=== PATIENT | male | born 1965 | race Hispanic/Latino ===

== ENCOUNTER 2018-01-25 10:48 | Emergency (ER) | payer SELFPAY ==
--- OUTSIDE RECORDS SUMMARY | 2018-01-25 10:50 | XMS REPORT | Clinical Summary ---
:1965 Author Organization [facility] Address [address] [place] [address] Care Team Providers Name Role Phone Asked, No Pcp Primary Care Provider Unavailable Allergies Active Allergy Reactions Severity Noted Date Comments Codeine Hives High 12/01/2016 Morphine Hives High 07/11/2017 Current Medications Prescription Sig. Disp. Refills Start Date End Date Status gabapentin Take 600 mg by Active (NEURONTIN) 600 mg mouth 2 (two) tablet times a day. metFORMIN Take 500 mg by Active (GLUCOPHAGE) 500 mg mouth 2 (two) tablet times a day with meals. atenolol (TENORMIN) Take 50 mg by Active 50 MG tablet mouth daily. citalopram (CeleXA) Take 20 mg by Active 20 MG tablet mouth daily. lisinopril Take 20 mg by Active (PRINIVIL,ZESTRIL) mouth daily. 20 mg tablet clopidogrel (PLAVIX) Take 75 mg by Active 75 mg tablet mouth daily. simvastatin (ZOCOR) Take 80 mg by Active 80 MG tablet mouth nightly. glyBURIDE (DIABETA) Take 1 tablet (5 30 tablet 0 07/13/2017 08/12/2017 5 MG tablet mg total) by mouth daily with breakfast for 30 days. Active Problems Problem Noted Date Chest pain 12/01/2016 Essential hypertension 12/01/2016 Type 2 diabetes mellitus 12/01/2016 Coronary artery disease involving [place] coronary artery 12/01/2016 Cirrhosis (HCC) 12/01/2016 Hypertriglyceridemia 12/01/2016 Depression 12/01/2016 Encounters Date Type Specialty Care Team Description 07/11/2017 - Hospital Encounter Cardiology Tomi, Stable angina pectoris (Primary Dx); 07/12/2017 Milton O. Sr., Mixed hyperlipidemia; Essential hypertension; Type 2 diabetes mellitus with hyperosmolarity without coma, without long-term current use of insulin; Alcoholic cirrhosis of liver without ascites; Mild single current episode of major depressive disorder; Hypertriglyceridemia after 01/24/2017 Family History Medical History Relation Name Comments Diabetes Father Diabetes Mother Hypertension Mother Relation Name Status Comments Father Mother Social History Tobacco Use Types Packs/Day Years Used Date Current Every Day Smoker Cigarettes Alcohol Use Drinks/Week oz/Week Comments No Sex Assigned at Date Recorded Not on file Last Filed Vital Signs Vital Sign Reading Time Taken Blood Pressure 134/75 07/12/2017 11:21 AM CDT Pulse 68 07/12/2017 11:21 AM CDT Temperature 36.3 C (97.4 F) 07/12/2017 11:21 AM CDT Respiratory Rate 16 07/12/2017 11:21 AM CDT Oxygen Saturation 94% 07/12/2017 11:21 AM CDT Inhaled Oxygen Concentration - - Weight 85.3 kg (188 lb 1.6 oz) 07/12/2017 6:43 AM CDT Height 170.2 cm (5' 7") 07/11/2017 12:36 PM CDT Body Mass Index 29.46 07/12/2017 6:43 AM CDT Plan of Treatment Health Maintenance Due Date Last Done Comments DIABETIC FOOT EXAM 07/30/1977 DIABETIC RETINAL EYE EXAM 07/30/1977 URINE MICROALBUMIN 07/30/1977 COLON CANCER SCREENING 07/30/2017 SHINGRIX VACCINE (#1) 07/30/2017 INFLUENZA VACCINE 11/26/2017 Implants Implanted Type Area Special Services Director Device Expiration Model / Identifier Date Serial / Lot Orthopedic Orthopedic Surgical Surgical Implants Implants Procedures Procedure Name Priority Date/Time Associated Comments Diagnosis POC GLUCOSE Routine 07/12/2017 12:05 Results for this PM CDT procedure are in the results section. ECHOCARDIOGRAM 2D Routine 07/12/2017 9:04 Results for this COMPLETE W MMODE AM CDT procedure are in SPECTRAL COLOR DOPPLER the results (54985) section. POC GLUCOSE Routine 07/12/2017 7:31 Results for this AM CDT procedure are in the results section. HC COMPLETE BLD COUNT Routine 07/12/2017 5:40 Results for this W/AUTO DIFF AM CDT procedure are in the results section. ZZESTIMATED GFR Routine 07/12/2017 4:00 Results for this AM CDT procedure are in the results section. T4, FREE Routine 07/12/2017 4:00 Results for this AM CDT procedure are in the results section. THYROID STIMULATING Routine 07/12/2017 4:00 Results for this HORMONE AM CDT procedure are in the results section. LIPID PANEL Routine 07/12/2017 4:00 Results for this AM CDT procedure are in the results section. BASIC METABOLIC PANEL Routine 07/12/2017 4:00 Results for this AM CDT procedure are in the results section. POC GLUCOSE Routine 07/11/2017 8:55 Results for this PM CDT procedure are in the results section. TROPONIN Routine 07/11/2017 5:54 Results for this PM CDT procedure are in the results section. HEMOGLOBIN A1C Routine 07/11/2017 5:54 Results for this PM CDT procedure are in the results section. POC GLUCOSE Routine 07/11/2017 5:23 Results for this PM CDT procedure are in the results section. NM MYOCARDIAL PERFUSION Routine 07/11/2017 2:44 Results for this STRESS ONLY PM CDT procedure are in the results section. CV STRESS TEST NUCLEAR Routine 07/11/2017 2:44 Results for this CARDIO PM CDT procedure are in the results section. POC GLUCOSE Routine 07/11/2017 10:45 Results for this AM CDT procedure are in the results section. TROPONIN Routine 07/11/2017 10:26 Results for this AM CDT procedure are in the results section. ECG 12-LEAD STAT 07/11/2017 4:14 Results for this AM CDT procedure are in the results section. B NATRIURETIC PEPTIDE Routine 07/11/2017 3:45 Results for this AM CDT procedure are in the results section. HC COMPLETE BLD COUNT Routine 07/11/2017 3:45 Results for this W/AUTO DIFF AM CDT procedure are in the results section. COMPREHENSIVE METABOLIC Routine 07/11/2017 2:43 Results for this PANEL AM CDT procedure are in the results section. ZZESTIMATED GFR Routine 07/11/2017 2:43 Results for this AM CDT procedure are in the results section. TROPONIN Routine 07/11/2017 2:43 Results for this AM CDT procedure are in the results section. LIPID PANEL Routine 07/11/2017 2:43 Results for this AM CDT procedure are in the results section. THYROID STIMULATING Routine 07/11/2017 2:43 Results for this HORMONE AM CDT procedure are in the results section. T4, FREE Routine 07/11/2017 2:43 Results for this AM CDT procedure are in the results section. T3 Routine 07/11/2017 2:43 Results for this AM CDT procedure are in the results section. after 01/24/2017 Results POC glucose (07/12/2017 12:05 PM)Only the most recent of5 resultswithin the time period is included. POC glucose 341 (H) 65 - 99 mg/dL [facility] DEPARTMENT OF PATHOLOGY AND Comment: GENOMIC MEDICINE [facility] Notified RN Meter ID: [id number] Internet Project Manager: Marco Harrison Performing Organization Address City/State/Zipcode Phone Number [facility] DEPARTMENT OF PATHOLOGY AND [address] [place] [address] Echocardiogram complete w contrast and 3D if needed (07/12/2017 9:04 AM) Narrative Performed At [facility] Echocardiography Report [address] [place] [address].Name:PAOLA KWONG Pat.ID:[id number] .Date: 07/12/2017 Refer.MD:MILTON ELLINGTON MD Exam Time: 7:25:00 AMStudy Type:Routine Echo Height:67inWeight: 188lb BSA: 1.97 m2 DOBAge:1965,51Y Sex: MALEBP:135/74 Sonogrphr: Suad Greco RDCS, RVT Pat. Stat.:Inpatient Room:[address] Study Status:Final Echo Event ID:[id number] Order ID:[id number] Reason for Study:Chest pain, SOB History / Clinical:Chest Pain, Diabetes, Hyperlipidemia, Hypertension, Cirrhosis, OR, Infectious Viral Hepatitis Procedures:2D Echo, Colorflow Doppler Race:C SUMMARY: LV size is normal. Concentric left ventricular remodeling. Estimated EF is 60-64%. RV systolic function is normal. Diastolic dysfunction Grade I (Mild): Impaired relaxation with normal LV filling pressures. FINDINGS: LV: LV size is normal. Concentric left ventricular remodeling. LVEF is normal. Estimated EF is 60-64%. Overall wall motionis normal. RV: RV size is normal. RV systolic function is normal. LA: LA volume is mildly enlarged. RA: RA size is normal. AO: Aortic root diameter is normal. MACHO: No pericardial effusion. AV: No structural AV abnormalities noted. MV: No structural MV abnormalities noted. Mild mitral regurgitation. PV: No structural PV abnormalities noted. TV: No structural TV abnormalities noted. Jose: Diastolic dysfunction Grade I (Mild): Impaired relaxation withnormal LV filling pressures. Other:Insufficient TR jet to estimate PA systolic pressure. MEASUREMENTS: 2D Parasternal [place] LVOT 2.1 cmLA Ds4.5 cm LVIDd4 cmIndex2 cm/m Ao An2 cm LVIDs2.3 cmAo Rtd 3.3 cm Index1.7 cm/m LV%fs 43.3 % LV Edkc803.1 g(122-174) IVSd 1.3 cmLVM Index 98.5 g/m2 LVPWd1.3 cmRWT0.7 LA Sng Plane LA Area 23.8 cm2(8.8-23.4) LA Vol77.6 ml Index39.4 ml/m LA LngAx 6 cm DOPPLER LVOT Stroke Vol LVOT 2.1 cmLVOT CO4.3 l/min LVOT TVI19.2 cmLVOT CI2.2 l/m/m2 LVOT Tm351 gkzpUU25 bpm LVOT SV 66.6 ml Signed 07/12/2017 02:24 PM Zain Carmona M.D. Procedure Note Interface, Radiology Results In - 07/12/2017 2:24 PM CDT Echocardiography Report [address] [address], [place] [address] [facility].Name: PAOLA KWONG Pat.ID: [id number] .Date: 07/12/2017 Refer.MD: MILTON ELLINGTON MD Exam Time: 7:25:00 AM Study Type:Routine Echo Height: 67in Weight: 188lb BSA: 1.97 m2 Age: 6 1965,51Y Sex: MALE BP: 135/74 Sonogrphr: Suad Greco, VON, RVT Pat. Stat.:Inpatient Room: [address] Study Status:Final Echo Event ID:[id number] Order ID: [id number] Reason for Study:Chest pain, SOB History / Clinical:Chest Pain, Diabetes, Hyperlipidemia, Hypertension, Cirrhosis, OR, Infectious Viral Hepatitis Procedures:2D Echo, Colorflow Doppler Race: C SUMMARY: LV size is normal. Concentric left ventricular remodeling. Estimated EF is 60-64%. RV systolic function is normal. Diastolic dysfunction Grade I (Mild): Impaired relaxation with normal LV filling pressures. FINDINGS: LV: LV size is normal. Concentric left ventricular remodeling. LV EF is normal. Estimated EF is 60-64%. Overall wall motion is normal. RV: RV size is normal. RV systolic function is normal. LA: LA volume is mildly enlarged. RA: RA size is normal. AO: Aortic root diameter is normal. MACHO: No pericardial effusion. AV: No structural AV abnormalities noted. MV: No structural MV abnormalities noted. Mild mitral regurgitation. PV: No structural PV abnormalities noted. TV: No structural TV abnormalities noted. Jose: Diastolic dysfunction Grade I (Mild): Impaired relaxation with normal LV filling pressures. Other: Insufficient TR jet to estimate PA systolic pressure. MEASUREMENTS: 2D Parasternal [place] LVOT 2.1 cm LA Ds 4.5 cm LVIDd 4 cm Index 2 cm/m Ao An 2 cm LVIDs 2.3 cm Ao Rtd 3.3 cm Index 1.7 cm/m LV%fs 43.3 % LV Mass 194.1 g (122-174) IVSd 1.3 cm LVM Index 98.5 g/m2 LVPWd 1.3 cm RWT 0.7 LA Sng Plane LA Area 23.8 cm2 (8.8-23.4) LA Vol 77.6 ml Index 39.4 ml/m LA LngAx 6 cm DOPPLER LVOT Stroke Vol LVOT 2.1 cm LVOT CO 4.3 l/min LVOT TVI 19.2 cm LVOT CI 2.2 l/m/m2 LVOT Tm 351 msec HR 65 bpm LVOT SV 66.6 ml Signed 07/12/2017 02:24 PM Zain Carmona M.D. Performing Organization Address [facility]/Zipcode Phone Number [facility] [address] [place] [address] CBC with platelet and differential (07/12/2017 5:40 AM)Only the most recent of2 resultswithin the time period is included. WBC 6.07 4.50 - 11.00 k/uL [facility] DEPARTMENT OF PATHOLOGY AND GENOMIC MEDICINE RBC 3.63 (L) 4.40 - 6.00 m/uL [facility] DEPARTMENT OF PATHOLOGY AND GENOMIC MEDICINE HGB 11.5 (L) 14.0 - 18.0 g/dL [facility] DEPARTMENT OF PATHOLOGY AND GENOMIC MEDICINE HCT 31.2 (L) 41.0 - 51.0 % [facility] DEPARTMENT OF PATHOLOGY AND GENOMIC MEDICINE MCV 86.0 82.0 - 100.0 fL [facility] DEPARTMENT OF PATHOLOGY AND GENOMIC MEDICINE MCH 31.7 27.0 - 34.0 pg [facility] DEPARTMENT OF PATHOLOGY AND GENOMIC MEDICINE MCHC 36.9 31.0 - 37.0 g/dL [facility] DEPARTMENT OF PATHOLOGY AND GENOMIC MEDICINE RDW - SD 40.9 37.0 - 55.0 fL [facility] DEPARTMENT OF PATHOLOGY AND GENOMIC MEDICINE MPV 11.3 8.8 - 13.2 fL [facility] DEPARTMENT OF PATHOLOGY AND GENOMIC MEDICINE Platelet count 145 (L) 150 - 400 k/uL [facility] DEPARTMENT OF PATHOLOGY AND GENOMIC MEDICINE Nucleated RBC 0.00 /100 WBC [facility] DEPARTMENT OF PATHOLOGY AND GENOMIC MEDICINE Neutrophils 47.3 39.0 - 69.0 % [facility] DEPARTMENT OF PATHOLOGY AND GENOMIC MEDICINE Lymphocytes 40.2 25.0 - 45.0 % [facility] DEPARTMENT OF PATHOLOGY AND GENOMIC MEDICINE Monocytes 5.9 0.0 - 10.0 % [facility] DEPARTMENT OF PATHOLOGY AND GENOMIC MEDICINE Eosinophils 5.8 (H) 0.0 - 5.0 % [facility] DEPARTMENT OF PATHOLOGY AND GENOMIC MEDICINE Basophils 0.5 0.0 - 1.0 % [facility] DEPARTMENT OF PATHOLOGY AND GENOMIC MEDICINE Immature granulocytes 0.3Comment: 0.0 - 1.0 % [facility] DEPARTMENT OF "Immature PATHOLOGY AND GENOMIC granulocytes" MEDICINE (promyelocytes, myelocytes, metamyelocytes) Specimen Blood Performing Organization Address City/[facility] Phone Number [facility] DEPARTMENT OF PATHOLOGY AND [address] [place] [address] [facility] Estimated GFR (07/12/2017 4:00 AM)Only the most recent of2 resultswithin the time period is included. GFR Non Af Amer 54 (A) mL/min/1.73 m2 [facility] DEPARTMENT OF PATHOLOGY AND GENOMIC MEDICINE GFR Af Amer 65 mL/min/1.73 m2 [facility] DEPARTMENT OF Comment: PATHOLOGY AND GENOMIC Chronic kidney disease: <60 mL/min/1.73m2 MEDICINE Kidney failure: <15 mL/min/1.73m2 The estimated GFR is calculated from the IDMS-traceable Modification of Diet in Renal Disease Equation. The accuracy of the calculation is poor when the creatinine is normal. Calculated values >90 mL/min/1.73m2 are not reported. This equation has not been validated in children (<18 years), women, the elderly (>70 years), or ethnic groups other than Caucasians and Americans. Specimen Plasma specimen Performing Organization Address City/State/Zipcode Phone Number [facility] OF PATHOLOGY AND [address] [place] [address] [facility] Thyroid stimulating hormone (07/12/2017 4:00 AM)Only the most recent of2 resultswithin the time period is included. TSH 1.27 0.27 - 4.20 uIU/mL [facility] DEPARTMENT OF PATHOLOGY AND GENOMIC MEDICINE Specimen Plasma specimen Performing Organization Address City/[facility] Phone Number [facility] DEPARTMENT OF PATHOLOGY AND [address] [place] [phone] [place] [address] T4, free (07/12/2017 4:00 AM)Only the most recent of2 resultswithin the time period is included. T4, free 1.0 0.9 - 1.7 ng/dL [facility] DEPARTMENT OF PATHOLOGY AND GENOMIC MEDICINE Specimen Plasma specimen Performing Organization Address City/[facility] Phone Number [facility] DEPARTMENT OF PATHOLOGY AND [address] [place] [id number] [facility] MEDICINE Lipid panel (07/12/2017 4:00 AM)Only the most recent of2 resultswithin the time period is included. Cholesterol 220 (H) <200 mg/dL [facility] DEPARTMENT OF PATHOLOGY AND GENOMIC MEDICINE Triglycerides 278 (H) <150 mg/dL [facility] DEPARTMENT OF PATHOLOGY AND GENOMIC MEDICINE HDL cholesterol 31 (L) >40 mg/dL [facility] DEPARTMENT OF PATHOLOGY AND GENOMIC MEDICINE LDL cholesterol 160 (H)Comment: Result <100 mg/dL [facility] DEPARTMENT OF obtained by direct LDL PATHOLOGY AND GENOMIC measurement MEDICINE Lipid panel [facility] OF Comment: PATHOLOGY AND GENOMIC Total Cholesterol (mg/dL) MEDICINE <200 Desirable 787-314Zswindzuho-tkbq >=240High Triglycerides (mg/dL) <150 Normal 401-277Vqzdweaegz-rduv 200-499High >=500Very high HDL Cholesterol (mg/dL) <40Low (male) <40Low (female) LDL Cholesterol (mg/dL) <100 Optimal 100-129Near or above optimal 326-372Pagddftshm-qtsv 160-189High >=190Very high Risk Catergories that modify LDL goals. Risk CatergoriesLDL goal (mg/dL) CHD and CHD risk equivalent<100 (10-year risk >20%) Multiple (2+) risk factors <130 (10-year risk=<20%) 0-1 risk factors <160 (<10-year risk) Defining levels of lipids in metabolic syndrome Triglycerides>=150 mg/dL HDL Cholesterol Men<40 mg/dL Women<40 mg/dL Non-HDL cholesterol is a second target for therapy in persons with high triglycerides (>=200 mg/dL) Specimen Plasma specimen Performing Organization Address City/[facility] Phone Number [facility] DEPARTMENT OF PATHOLOGY AND [address] [place] [address] Basic metabolic panel (07/12/2017 4:00 AM) Sodium 141 135 - 148 mEq/L [facility] DEPARTMENT OF PATHOLOGY AND GENOMIC MEDICINE Potassium 4.1 3.5 - 5.0 mEq/L [facility] DEPARTMENT OF PATHOLOGY AND GENOMIC MEDICINE Chloride 106 98 - 112 mEq/L [facility] DEPARTMENT OF PATHOLOGY AND GENOMIC MEDICINE CO2 24 24 - 31 mEq/L [facility] DEPARTMENT OF PATHOLOGY AND GENOMIC MEDICINE Anion gap 11 7 - 15 mEq/L [facility] DEPARTMENT OF PATHOLOGY Comment: [facility] [employer] [facility] Starting from July , anion gap calculation no longer incorporates potassium. Please note the change. BUN 25 (H) 6 - 20 mg/dL [facility] DEPARTMENT OF PATHOLOGY AND GENOMIC MEDICINE Creatinine 1.4 (H) 0.7 - 1.2 mg/dL [facility] DEPARTMENT OF PATHOLOGY AND GENOMIC MEDICINE Glucose 206 (H) 65 - 99 mg/dL [facility] DEPARTMENT OF PATHOLOGY AND GENOMIC MEDICINE Calcium 8.9 8.3 - 10.2 mg/dL [facility] DEPARTMENT OF PATHOLOGY AND [employer] MEDICINE Specimen Plasma specimen Performing Organization Address [facility] Hospital[facility]y Phone Number [facility] DEPARTMENT OF PATHOLOGY AND [address] [place], [place] [phone] [facility] Troponin (07/11/2017 5:54 PM)Only the most recent of3 resultswithin the time period is included. Troponin <0.30 0.00 - 0.30 ng/mL [facility] DEPARTMENT OF PATHOLOGY Comment: AND [employer] [facility] 0.30 - 1.49 ng/mlMay indicate increased risk of acute coronary syndrome. >=1.5 ng/mlConsistent with acute myocardial infarction. The diagnostic value of a single normal or non-diagnostic result is questionable.Serial samples at 2-6 hour intervals are required to rule out acute myocardial injury. Specimen Plasma specimen Performing Organization Address City/[facility] Phone Number [facility] DEPARTMENT OF PATHOLOGY AND [address] [place], [place] [phone] [facility] Hemoglobin A1c (07/11/2017 5:54 PM) Hemoglobin A1C 7.4 (H) 4.0 - 5.6 % [facility] DEPARTMENT OF PATHOLOGY Comment: AND GENOMIC MEDICINE HbA1c cutoffs for diagnosing diabetes: 4.0% - 5.6%=normal 5.7% - 6.4%=increased risk for diabetes (prediabetes) >=6.5%=diabetes Goals for glycemic control (ADA 2016) < 7.0%Target for non adults with diabetes. More or less stringent targets may be appropriate for individual patients. <7.5% Target for Children and adolescents with type 1 diabetes. Specimen Blood Performing Organization Address City/[facility] Phone Number [facility] DEPARTMENT OF PATHOLOGY AND [address] Cv ecg exercise stress (no imaging) (07/11/2017 2:44 PM) Resting HR 77 [facility] MUSE Resting BP 166 [facility] Peak MET Achieved 1.0 [facility] MUSE Protocol Name REGADENO [facility] Time in Exercise Phase 00:01:00 [facility] Max Systolic BP 178 [facility] Max Diastolic BP 95 [facility] Max Heart Rate 85 [facility] Max Predicted Heart Rate 171 [facility] Target HR Formula (220 - Age)*100% [facility] Test Indication chest pain [facility] Stress Test Impression Waveform interpreted in report [facility] MUSE associated with image study. No interpretation is provided as part of this Stress ECG report.-Electronically Signed By Isabelle BOSS, Sreedhar Brown ([id number]), rewrite editor Kailey Porras ([id number]) on 07/11/2017 2:32:43 PM Target HR 145.35 bpm [facility] MUSE Performing Organization Address [facility] Phone Number [facility]USE [address] [place] [address] Myocardial perfusion (07/11/2017 2:44 PM) Narrative Performed At [facility] Nuclear Cardiology and Cardiac CT [address] [place] [address] Myocardial Perfusion Imaging Report Stress ECG tracings are available in MUSE, [employer] and CV Web All ECG interpretations are included in this report Pat.Name:PAOLA KWONG Pat.ID:[id number] St.Date: 07/11/2017 Refer.MD:MILTON ELLINGTON MD Exam Time: 12:58:00 PM Study Type:Myocardial Perfusion Imaging Height:66inBSA: 1.95 m2 DOBAge:1965,51YSex: MALE BP:162/82HR: 77 bpm HCT: 29.3 % Nuclear Tech:ZENY SpencerMT/Leatha MOURAMT,[facility] Nuclear Event ID:[id number] Order ID:[id number] History / Clinical:Coronary artery disease, Diabetes, Hyperlipidemia, Hypertension, S/P PCI 07/2007, Liver cirrhosis/Hepatitis C Procedures:Stress only Race:C Risk Factors:Angina, Diabetes, Cardiovascular Disease, Hyperlipidemia, Hypertension Clinical Symptoms:Regadenoson Surgery: Serum K+ Date,3.7 on 07/11/16/, Troponin I Date,1)NEG on 07/11/17/ 2)/ 3)/, BUN/Creatinine Date,20/05.4 on 07/11/17/ Medications:VICKI/ARB, Atenolol, Beta ramy, Lipitor, Lisinopril, Metformin, Zocor SUMMARY: SCINTIGRAPHIC RESULTS Perfusion Defect Size (% LV) 0 % Total 0 % Ischemia 0 % Scar Left Ventricular Perfusion Results There is normal tracer distribution throughout the myocardium during stress. Gated SPECT Results The post-stress left ventricular ejection fraction is 63 % with normal regional wall motion and left ventricular thickening.Left ventricular end-diastolic volume is 150 ml; end-systolic volume is56 ml. The left ventricle is of normal size at stress.The right ventricle is of normal size with normal wall motion. Conclusion Normal regadenoson Tc-99m tetrofosmin myocardial perfusion study. The left ventricular ejection fraction is normal. Moderate RVH. Comments Patients with a normal stress myocardial perfusion study have a low (< 1%) annual risk of cardiac or nonfatal myocardial infarction. Study Quality/Artifacts The study quality is good. The mild reduction in apical-septal wall counts during stress is probably due to soft tissue attenuation artifact rather than coronary artery diseasewhich resolves with prone imaging. Comparison to Previous Study None available. STRESS: Baseline Vital Signs:Intervention: Regadenoson 0.4mg/5ml IV over 10 seconds followed by radiotracer injection and 5ml saline flush ECG: Normal Sinus Rhythm, Right bundle branch block HR:77 BP:166/82 Stress Test Results: Target HR: 145 Symptoms and Complications: Arrhythmias: None Terminated: As per Regadenoson protocol Symptoms:Headache, Shortness of breath Complications: None Conclusions: Normal heart rate response to pharmacological stress, Normal blood pressure response to pharmacological stress Stress ECG Interp: No ischemic ST segment change occurred with stress. Signed 07/11/2017 05:29 PM Sreedhar Walton MD Procedure Note Interface, Radiology Results In - 07/11/2017 5:29 PM CDT Nuclear Cardiology and Cardiac CT [address] [place] [address] Myocardial Perfusion Imaging Report Stress ECG tracings are available in [employer], [employer] and [employer] ([employer]) All ECG interpretations are included in this report Pat.Name: PAOLA KWONG Pat.ID: [id number] .Date: 07/11/2017 Refer.MD: MILTON ELLINGTON MD Exam Time: 12:58:00 PM Study Type:Myocardial Perfusion Imaging Height: 66in BSA: 1.95 m2 Age: 6 1965,51Y Sex: MALE BP: 162/82 HR: 77 bpm HCT: 29.3 % Nuclear Tech:NIDHI Spencer/Leatha MOURAMT,[facility] Event ID:[id number] Order ID: [id number] History / Clinical:Coronary artery disease, Diabetes, Hyperlipidemia, Hypertension, S/P PCI 07/2007, Liver cirrhosis/Hepatitis C Procedures:Stress only Race: C Risk Factors:Angina, Diabetes, Cardiovascular Disease, Hyperlipidemia, Hypertension Clinical Symptoms:Regadenoson Surgery: Serum K+ Date, 3.7 on 07/11/16/, Troponin I Date, 1)NEG on 07/11/17/ 2)/ 3)/, BUN/Creatinine Date, 23/1.4 on 07/11/17/ Medications:VICKI/ARB, Atenolol, Beta ramy, Lipitor, Lisinopril, Metformin, Zocor SUMMARY: SCINTIGRAPHIC RESULTS Perfusion Defect Size (% LV) 0 % Total 0 % Ischemia 0 % Scar Left Ventricular Perfusion Results There is normal tracer distribution throughout the myocardium during stress. Gated SPECT Results The post-stress left ventricular ejection fraction is 63 % with normal regional wall motion and left ventricular thickening. Left ventricular end-diastolic volume is 150 ml; end-systolic volume is 56 ml. The left ventricle is of normal size at stress. The right ventricle is of normal size with normal wall motion. Conclusion Normal regadenoson Tc-99m tetrofosmin myocardial perfusion study. The left ventricular ejection fraction is normal. Moderate RVH. Comments Patients with a normal stress myocardial perfusion study have a low (< 1%) annual risk of cardiac or nonfatal myocardial infarction. Study Quality/Artifacts The study quality is good. The mild reduction in apical-septal wall counts during stress is probably due to soft tissue attenuation artifact rather than coronary artery disease which resolves with prone imaging. Comparison to Previous Study None available. STRESS: Baseline Vital Signs: Intervention: Regadenoson 0.4mg/5ml IV over 10 seconds followed by radiotracer injection and 5ml saline flush ECG: Normal Sinus Rhythm, Right bundle branch block HR: 77 BP: 166/82 Stress Test Results: Target HR: 145 Symptoms and Complications: Arrhythmias: None Terminated: As per Regadenoson protocol Symptoms: Headache, Shortness of breath Complications: None Conclusions: Normal heart rate response to pharmacological stress, Normal blood pressure response to pharmacological stress Stress ECG Interp: No ischemic ST segment change occurred with stress. Signed 07/11/2017 05:29 PM Sreedhar Walton MD Performing Organization Address City/State/Zipcode Phone Number [facility] [address] [place] [address] ECG 12 lead (07/11/2017 4:14 AM) Ventricular rate 83 [facility] MUSE Atrial rate 83 [facility] MUSE [place] interval 138 [facility] MUSE QRSD interval 152 HM MUSE QT interval 420 HM MUSE QTC interval 493 [facility] MUSE P axis 1 34 HM MUSE QRS axis 1 78 [facility] MUSE T wave axis 9 [facility] MUSE EKG impression Normal sinus rhythm-Right bundle branch [facility] MUSE block-Abnormal ECG-In automated comparison with ECG of 01-DEC-2016 20:31,-No significant change was found- Performing Organization Address City/[facility] Phone Number [facility] MUSE [address] [place] [address] B natriuretic peptide (07/11/2017 3:45 AM) BNP 25 0 - 100 pg/mL [facility] DEPARTMENT OF PATHOLOGY AND GENOMIC MEDICINE Specimen Blood Performing Organization Address [facility] Phone Number [facility] DEPARTMENT OF PATHOLOGY AND [address] [place] [id number] [facility] MEDICINE T3 (07/11/2017 2:43 AM) T3 89 80 - 200 ng/dL [facility] DEPARTMENT OF PATHOLOGY AND GENOMIC MEDICINE Specimen Plasma specimen Performing Organization Address [facility] Phone Number [facility] DEPARTMENT OF PATHOLOGY AND [address] [place] [phone] [facility] Comprehensive metabolic panel (07/11/2017 2:43 AM) Sodium 141 135 - 148 mEq/L [facility] DEPARTMENT OF PATHOLOGY AND GENOMIC MEDICINE Potassium 3.7 3.5 - 5.0 mEq/L [facility] DEPARTMENT OF PATHOLOGY AND GENOMIC MEDICINE Chloride 103 98 - 112 mEq/L [facility] DEPARTMENT OF PATHOLOGY AND GENOMIC MEDICINE CO2 26 24 - 31 mEq/L [facility] DEPARTMENT OF PATHOLOGY AND GENOMIC MEDICINE Anion gap 12 7 - 15 mEq/L [facility] DEPARTMENT OF Comment: PATHOLOGY AND GENOMIC Starting from July , anion gap calculation MEDICINE no longer incorporates potassium. Please note the change. BUN 23 (H) 6 - 20 mg/dL [facility] DEPARTMENT OF PATHOLOGY AND GENOMIC MEDICINE Creatinine 1.4 (H) 0.7 - 1.2 mg/dL [facility] DEPARTMENT OF PATHOLOGY AND GENOMIC MEDICINE Glucose 248 (H) 65 - 99 mg/dL [facility] DEPARTMENT OF PATHOLOGY AND GENOMIC MEDICINE Calcium 9.0 8.3 - 10.2 mg/dL [facility] DEPARTMENT OF PATHOLOGY AND GENOMIC MEDICINE Protein 5.7 (L) 6.3 - 8.3 g/dL [facility] DEPARTMENT OF Comment: PATHOLOGY AND GENOMIC [place] 4.6-7.0 g/dL MEDICINE 1 week 4.4-7.6 g/dL 7 months-1year5.1-7.3 g/dL 1-2 years5.6-7.5 g/dL >3 years6.0-8.0 g/dL 18-150 6.3-8.3 g/dL Albumin 2.6 (L) 3.5 - 5.0 g/dL [facility] DEPARTMENT OF PATHOLOGY AND GENOMIC MEDICINE A/G ratio 0.8 0.7 - 3.8 [facility] DEPARTMENT OF PATHOLOGY AND GENOMIC MEDICINE Alkaline phosphatase 63 40 - 129 U/L [facility] DEPARTMENT OF PATHOLOGY AND GENOMIC MEDICINE AST 31 10 - 50 U/L [facility] DEPARTMENT OF PATHOLOGY AND GENOMIC MEDICINE ALT 26 5 - 50 U/L [facility] DEPARTMENT OF PATHOLOGY AND GENOMIC MEDICINE Total bilirubin 0.3 0.0 - 1.2 mg/dL [facility] DEPARTMENT OF PATHOLOGY AND GENOMIC MEDICINE Specimen Plasma specimen Narrative Performed At [facility] added per Eden Duran/HYALEE in A7 at [facility] DEPARTMENT OF PATHOLOGY AND GENOMIC 07/11/17 0715 by [facility]. MEDICINE Performing Organization Address City/State/Zipcode Phone Number [facility] DEPARTMENT OF PATHOLOGY AND [address] [place] [address] [employer] [facility] after 01/24/2017
--- NOTE | 2018-01-25 12:40 | RAD REPORT ---
EXAM DESCRIPTION: CT - Head Brain Wo Cont - 01/25/2018 12:25 pm CLINICAL HISTORY: NUMBNESS Headache COMPARISON: No comparisons TECHNIQUE: All CT scans are performed using dose optimization technique as appropriate and may inclu de automated exposure control or mA/KV adjustment according to patient size. FINDINGS: No intracranial hemorrhage, hydrocephalus or extra-axial fluid collection.No areas of brai n edema or evidence of midline shift. The paranasal sinuses and mastoids are clear. The calvarium is intact. IMPRESSION: No acute intracranial abnormality.
--- NOTE | 2018-01-25 12:47 | RAD REPORT ---
EXAM DESCRIPTION: RAD - Chest Single View - 01/25/2018 12:34 pm CLINICAL HISTORY: MALAISE Chest pain. COMPARISON: Chest Single View dated 12/01/2016 FINDINGS: Portable technique limits examination quality. The lungs are grossly clear. The heart is normal in size. No displaced fractures. IMPRESSION: No acute intrathoracic process suspected.
[2018-01-25 13:12] LABS: Absolute Lymphocytes (CBC) 1.6 K/uL (0.7-4.9); Absolute Monocytes 0.3 K/uL (0.1-1.3); Absolute Neutrophil 3.1 K/uL (1.8-8.0); Basophils % 0.9 % (0-1.3); Eosinophils % 4.6 % (0-4.4); Hematocrit 37.1 % (39.6-49.0); Lymphocytes % 30.3 % (15.3-44.8); MCH 32.9 pg (27.0-35.0); MCV 89.6 fL (80-100); Monocytes % 5.2 % (3.3-12.3); Protime INR 0.92; RBC Red Blood Cell Count 4.14 M/uL (4.33-5.43)
[2018-01-25 13:24] LABS: ALT/SGPT 27 U/L (12-78); AST/SGOT 13 U/L (15-37); Albumin 3.1 g/dL (3.4-5.0); BUN Blood Urea Nitrogen 34 mg/dL (7-18); Bicarbonate 29 mmol/L (21-32); Bilirubin Direct 0.1 mg/dL (0-0.2); Glucose Level 389 mg/dL (74-106); Magnesium 2.4 mg/dL (1.8-2.4); Potassium 4.5 mmol/L (3.5-5.1); Sodium Level 137 mmol/L (136-145)
[2018-01-25 13:29] LABS: Alkaline Phosphatase 94 U/L (45-117); Bilirubin Total 0.4 mg/dL (0.2-1.0); NT PRO-BNP 263 pg/mL (<125); Protein, Total 6.6 g/dL (6.4-8.2); Troponin (Emerg Dept Use Only) < 0.02 ng/mL (0.0-0.045)
--- NOTE | 2018-01-25 14:29 | EDPHYS ---
Physician Documentation [facility] Name: Wero Kwong Sr Age: 52 yrs Sex: Male : 1965 Arrival Date: 01/25/2018 Time: 10:51 Bed 17 Private MD: Guido Pettit S ED Physician Gregory Rivas HPI: 01/25 14:25 This 52 yrs old Male presents to ER via Ambulatory with complaints of Redness gs of Eye dizziness. 14:25 The patient presents with lightheadedness. Onset: The symptoms/episode began/occurred 2 gs week(s) ago. Modifying factors: the symptoms are aggravated by standing up. Associated signs and symptoms: Pertinent negatives: chest pain, combativeness. Severity of symptoms: At their worst the symptoms were moderate in the emergency department the symptoms are unchanged. The patient has experienced similar episodes in the past, a few times. eye red, also says his vision is blurry right eye has hx of retinal detachment right. Historical: - Allergies: 10:57 Codeine; sg - PMHx: 10:57 CAD; Diabetes - NIDDM; High Cholesterol; Hypertension; Myocardial infarction; sg neuropathy; - PSHx: 10:57 Heart stents; Knee surgery; Cholecystectomy; sg - Immunization history:: Adult Immunizations up to date. - Social history:: Smoking status: unknown. - Ebola Screening: : Patient negative for fever greater than or equal to 101.5 degrees Fahrenheit, and additional compatible Ebola Virus Disease symptoms Patient denies exposure to infectious person Patient denies travel to an Ebola-affected area in the 21 days before illness onset No symptoms or risks identified at this time. ROS: 14:25 Neuro: Positive for tingling, right forehead. gs 14:25 Endocrine: Positive for hyperglycemia. 14:25 All other systems are negative. Exam: 14:25 Head/Face: Normocephalic, atraumatic. ENT: Nares patent. No nasal discharge, no gs septal abnormalities noted. Tympanic membranes are normal and external auditory canals are clear. Oropharynx with no redness, swelling, or masses, exudates, or evidence of obstruction, uvula midline. Mucous membranes moist. Neck: Trachea midline, no thyromegaly or masses palpated, and no cervical lymphadenopathy. Supple, full range of motion without nuchal rigidity, or vertebral point tenderness. No Meningismus. Chest/axilla: Normal chest wall appearance and motion. Nontender with no deformity. No lesions are appreciated. Cardiovascular: Regular rate and rhythm with a normal S1 and S2. No gallops, murmurs, or rubs. Normal PMI, no JVD. No pulse deficits. Respiratory: Lungs have equal breath sounds bilaterally, clear to auscultation and percussion. No rales, rhonchi or wheezes noted. No increased work of breathing, no retractions or nasal flaring. Abdomen/GI: Soft, non-tender, with normal bowel sounds. No distension or tympany. No guarding or rebound. No evidence of tenderness throughout. Back: No spinal tenderness. No costovertebral tenderness. Full range of motion. Skin: Warm, dry with normal turgor. Normal color with no rashes, no lesions, and no evidence of cellulitis. MS/ Extremity: Pulses equal, no cyanosis. Neurovascular intact. Full, normal range of motion. Neuro: Awake and alert, GCS 15, oriented to person, place, time, and situation. Cranial nerves II-XII grossly intact. Motor strength 5/5 in all extremities. Sensory grossly intact. Cerebellar exam normal. Normal gait. 14:25 Constitutional: The patient appears alert, awake. 14:25 Eyes: Conjunctiva: subconjunctival hemorrhage(s), seen in the right eye, at 8 o'clock. 14:31 ECG was reviewed by the Attending Physician. Vital Signs: 10:57 BP 124 / 79; Pulse 52; Resp 16; Temp 98.1; Pulse Ox 98% ; Weight 79.38 kg (R); Height 5 sg ft. 6 in. (167.64 cm); Pain 8/10; 11:25 BP 135 / 76; Pulse 52; Resp 16; Pulse Ox 98% on R/A; Pain 8/10; em 12:30 BP 148 / 79; Pulse 52; Resp 18; Pulse Ox 99% on R/A; em 14:15 BP 152 / 79; Pulse 56; Resp 18; Pulse Ox 100% on R/A; mh5 10:57 Body Mass Index 28.25 (79.38 kg, 167.64 cm) MDM: 11:51 Patient medically screened. 14:25 Differential diagnosis: CVA, generalized weakness, idiopathic dizziness, TIA, vertigo, gs retinal detachment, complications of diabetes mellitus. Data reviewed: vital signs, nurses notes. Response to treatment: the patient's symptoms have mildly improved after treatment, and as a result, I will discharge patient. 01/25 11:54 Order name: Basic Metabolic Panel; Complete Time: 13:38 01/25 11:54 Order name: CBC with Diff; Complete Time: 13:38 01/25 11:54 Order name: LFT's; Complete Time: 13:38 01/25 11:54 Order name: Magnesium; Complete Time: 13:38 01/25 11:54 Order name: NT PRO-BNP; Complete Time: 13:38 01/25 11:54 Order name: PT-INR; Complete Time: 13:38 01/25 11:54 Order name: Troponin (emerg Dept Use Only); Complete Time: 13:38 01/25 11:54 Order name: XRAY Chest (1 view); Complete Time: 13:04 01/25 11:54 Order name: EKG; Complete Time: 11:55 01/25 11:54 Order name: Cardiac monitoring; Complete Time: 13:17 01/25 11:54 Order name: EKG - Nurse/Tech; Complete Time: 13:17 01/25 11:54 Order name: IV Saline Lock; Complete Time: 13:17 01/25 11:54 Order name: Labs collected and sent; Complete Time: 13:17 01/25 11:54 Order name: CT Head Brain wo Cont; Complete Time: 13:04 01/25 11:54 Order name: O2 Per Protocol; Complete Time: 13:17 01/25 11:54 Order name: O2 Sat Monitoring; Complete Time: 13:17 EC:31 Rate is 53 beats/min. Rhythm is regular. NV interval is normal. QRS interval is gs prolonged. T waves are Flattened. No ST changes noted. Clinical impression: NSR w/ Non-specific ST/T Changes. Interpreted by me. Administered Medications: No medications were administered Disposition: 01/25/18 14:29 Discharged to Home. Impression: Hyperglycemia, unspecified, Paresthesia of skin, Dizziness and giddiness, Conjunctival hemorrhage, right eye. - Condition is Stable. - Discharge Instructions: Dizziness, Hyperglycemia, Paresthesia, [id number]. - Medication Reconciliation Form, Thank You Letter, Antibiotic Education, Prescription Opioid Use form. - Follow up: Private Physician; When: 1 - 2 days; Reason: Re-evaluation by your physician. Signatures: Dispatcher [employer] Loki Long, RN RN sg Ronnie Wilhelm, COMB FIXER COMB FIXER Gregory Pollock MD MD gs Corrections: (The following items were deleted from the chart) 14:58 14:29 01/25/2018 14:29 Discharged to Home. Impression: Hyperglycemia, unspecified; em Paresthesia of skin; Dizziness and giddiness; Conjunctival hemorrhage, right eye. Condition is Stable. Forms are Medication Reconciliation Form, Thank You Letter, Antibiotic Education, Prescription Opioid Use. Follow up: Private Physician; When: 1 - 2 days; Reason: Re-evaluation by your physician. gs
--- NOTE | 2018-01-25 14:29 | ER ---
Nurse's Notes [facility] Name: Wero Kwong Sr Age: 52 yrs Sex: Male : 1965 Arrival Date: 01/25/2018 Time: 10:51 Bed 17 Private MD: Guido Pettit S Diagnosis: Hyperglycemia, unspecified;Paresthesia of skin;Dizziness and giddiness;Conjunctival hemorrhage, right eye Presentation: 01/25 10:55 Presenting complaint: Patient states: Right eye pain and redness that happened about sg 2-3 weeks ago. Pt states that he has had really high blood sugars recently, most recent being 485 this morning. Reports dizziness and pressure on the right side and having headache, pain and numbness and around my lips, this has been going on for several days. Transition of care: patient was not received from another setting of care. Onset of symptoms was January 25, 2018. Risk Assessment: Do you want to hurt yourself or someone else? Patient reports no desire to harm self or others. Initial Sepsis Screen: Does the patient meet any 2 criteria? No. Patient's initial sepsis screen is negative. Does the patient have a suspected source of infection? No. Patient's initial sepsis screen is negative. Care prior to arrival: None. 10:55 Method Of Arrival: Ambulatory sg 10:55 Acuity: MARIA [place] 3 sg Historical: - Allergies: 10:57 Codeine; sg - PMHx: 10:57 CAD; Diabetes - NIDDM; High Cholesterol; Hypertension; Myocardial infarction; sg neuropathy; - PSHx: 10:57 Heart stents; Knee surgery; Cholecystectomy; sg - Immunization history:: Adult Immunizations up to date. - Social history:: Smoking status: unknown. - Ebola Screening: : Patient negative for fever greater than or equal to 101.5 degrees Fahrenheit, and additional compatible Ebola Virus Disease symptoms Patient denies exposure to infectious person Patient denies travel to an Ebola-affected area in the 21 days before illness onset No symptoms or risks identified at this time. Screenin:57 Abuse screen: Denies threats or abuse. Nutritional screening: No deficits noted. em Tuberculosis screening: No symptoms or risk factors identified. Fall Risk None identified. Assessment: 11:26 General: Appears in no apparent distress. comfortable, Behavior is calm, cooperative. em Pain: Complains of pain in occipital area Pain currently is 8 out of 10 on a pain scale. Neuro: Level of Consciousness is awake, alert, obeys commands, Oriented to person, place, time, situation, Yield Clerk are equal bilaterally Moves all extremities. 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 Reports dizziness, headache numbness. Cardiovascular: Denies chest pain, vomiting, Capillary refill < 3 seconds Patient's skin is warm and dry. Respiratory: Airway is patent Respiratory effort is even, unlabored, Respiratory pattern is regular, symmetrical. GI: Patient currently denies nausea, vomiting. : No signs and/or symptoms were reported regarding the genitourinary system. EENT: No signs and/or symptoms were reported regarding the EENT system. Derm: Skin is jaundiced. Musculoskeletal: Range of motion: intact in all extremities. 11:35 Reassessment: Patient appears in no apparent distress at this time. I agree with above iw assessment by Ronnie Wilhelm LVN. 13:07 Reassessment: Patient appears in no apparent distress at this time. Patient and/or em family updated on plan of care and expected duration. Pain level reassessed. Patient is alert, oriented x 3, equal unlabored respirations, skin warm/dry/pink. 13:58 Reassessment: Patient appears in no apparent distress at this time. Patient and/or em family updated on plan of care and expected duration. Pain level reassessed. Patient is alert, oriented x 3, equal unlabored respirations, skin warm/dry/pink. Dr. Rivas at bedside. 14:41 Reassessment: Patient appears in no apparent distress at this time. Patient and/or em family updated on plan of care and expected duration. Pain level reassessed. Patient is alert, oriented x 3, equal unlabored respirations, skin warm/dry/pink. Vital Signs: 10:57 BP 124 / 79; Pulse 52; Resp 16; Temp 98.1; Pulse Ox 98% ; Weight 79.38 kg (R); Height 5 sg ft. 6 in. (167.64 cm); Pain 8/10; 11:25 BP 135 / 76; Pulse 52; Resp 16; Pulse Ox 98% on R/A; Pain 8/10; em 12:30 BP 148 / 79; Pulse 52; Resp 18; Pulse Ox 99% on R/A; em 14:15 BP 152 / 79; Pulse 56; Resp 18; Pulse Ox 100% on R/A; mh5 10:57 Body Mass Index 28.25 (79.38 kg, 167.64 cm) ED Course: 10:51 Patient arrived in ED. mr 10:52 Guido Pettit MD is Private Physician. mr 10:57 Triage completed. sg 10:57 Arm band placed on. 10:59 Ronnie Wilhelm LVN is Primary Nurse. em 11:41 Gregory Rivas MD is Attending Physician. gs 12:25 CT Head Brain wo Cont In Process Unspecified. EDMS 12:32 XRAY Chest (1 view) In Process Unspecified. EDMS 12:57 Patient has correct armband on for positive identification. Bed in low position. Call em light in reach. Adult w/ patient. 12:57 No provider procedures requiring assistance completed. Initial lab(s) drawn, by me, em sent to lab. EKG done, by ED staff, reviewed by Gregory Rivas MD. Inserted saline lock: 20 gauge in right antecubital area, using aseptic technique. Blood collected. 14:40 IV discontinued, intact, bleeding controlled, No redness/swelling at site. Pressure em dressing applied. Administered Medications: No medications were administered Outcome: 14:29 Discharge ordered by . 14:40 Discharged to home via wheelchair. em 14:40 Condition: good 14:40 Discharge instructions given to patient, family, Instructed on discharge instructions, follow up and referral plans. Demonstrated understanding of instructions, follow-up care. 14:58 Patient left the ED. em Signatures: Dispatcher [employer] EDMS Loki Miranda, RN Tiffany Sofia mr WilhelmRonnie LVN LVN em Agata Krishna, Mayela Washington RN [facility] Gregory Rivas MD MD
--- NOTE | 2018-01-26 06:47 | EKG ---
Test Date: 2018-01-25 Test Time: 12:39:04 Coconut Boiler: ELIZABETH MEASUREMENT RESULTS: Intervals: Rate: 53 CT: 148 QRSD: 146 QT: 480 QTc: 450 Buhl: P: 32 CT: 148 QRS: 67 T: 18 INTERPRETIVE STATEMENTS: Sinus bradycardia Right bundle branch block Abnormal ECG Compared to ECG 12/01/2016 14:55:01 Sinus rhythm no longer present Myocardial infarct finding no longer present Electronically Signed On 01-26-18 06:46:14 CDT by David Fabian
== END 2018-01-25 14:58 | disposition home or self-care (01) ==
LOC: ER 10:48
DX: E11.65 Type 2 diabetes mellitus with hyperglycemia (principal); H11.31 Conjunctival hemorrhage, right eye; R20.2 Paresthesia of skin; I10 Essential (primary) hypertension; Z88.5 Allergy status to narcotic agent; Z95.818 Presence of other cardiac implants and grafts
CPT/HCPCS: 36415; 70450; 71045; 80048; 80076; 83735; 83880; 84484; 85025; 85610; 93005; 99284

== ENCOUNTER 2018-03-12 13:16 | Observation (INO) | payer SELFPAY ==
--- OUTSIDE RECORDS SUMMARY | 2018-03-12 13:19 | XMS REPORT | Clinical Summary ---
:1965 Author Organization [facility] Address [address] [place] [address] Care Team Providers Name Role Phone Asked, No Pcp Primary Care Provider Unavailable Allergies Active Allergy Reactions Severity Noted Date Comments Codeine Hives High 12/01/2016 Hydrocodone-Acetaminophen Hives, Itching 06/25/2013 Morphine Hives High 07/11/2017 Medications Medication Sig Dispensed Refills Start Date End Date Status gabapentin Take 1,800 mg 0 Active (NEURONTIN) 300 mg by mouth every capsule morning. atenolol (TENORMIN) Take 50 mg by 0 Active 50 MG tablet mouth daily. citalopram (CeleXA) Take 20 mg by 0 Active 20 MG tablet mouth daily. lisinopril Take 20 mg by 0 Active (PRINIVIL,ZESTRIL) mouth daily. 20 mg tablet clopidogrel (PLAVIX) Take 75 mg by 0 Active 75 mg tablet mouth daily. gabapentin Take 1,200 mg 0 Active (NEURONTIN) 300 mg by mouth every capsule evening. ibuprofen Take 400 mg by 0 Active (ADVIL,MOTRIN) 200 mouth every 6 MG tablet (six) hours as needed for mild pain. atorvastatin Take 1 tablet 30 tablet 2 02/13/2018 Active (LIPITOR) 80 MG (80 mg total) 8 tablet by mouth nightly for 30 days. aspirin 81 mg Chew 1 tablet 100 tablet 3 02/14/2018 Active chewable tablet (81 mg total) 8 daily for 30 days. clopidogrel (PLAVIX) Take 1 tablet 30 tablet 6 02/14/2018 Active 75 mg tablet (75 mg total) 8 by mouth daily for 30 days. ergocalciferol Take 1 capsule 4 capsule 0 02/20/2018 Active (VITAMIN D2) 50,000 (50,000 Units 8 unit capsule total) by mouth once a week for 30 days. furosemide (LASIX) Take 1 tablet 60 tablet 1 02/16/2018 Active 40 mg tablet (40 mg total) 8 by mouth 2 (two) times a day for 30 days. insulin 70/30 NPH Inject 80 20 mL 2 02/16/2018 Active and regular human units twice a (NovoLIN 70/30 U-100 day with food Insulin) 100 unit/mL (70-30) injection insulin Inject twice a 100 each 2 02/16/2018 Active syringe-needle U-100 day (BD INSULIN SYRINGE ULTRA-FINE) 1 mL 31 gauge x 5/16 syringe metFORMIN Take 500 mg by 0 Discontinued (GLUCOPHAGE) 500 mg mouth 2 (two) 8 tablet times a day with meals. simvastatin (ZOCOR) Take 40 mg by 0 Discontinued 40 MG tablet mouth nightly. 8 glyBURIDE (DIABETA) Take 1 tablet 30 tablet 0 07/13/2017 5 MG tablet (5 mg total) 8 by mouth daily with breakfast for 30 days. glyburide-metformin Take 1 tablet 0 Discontinued (GLUCOVANCE) 5-500 by mouth 2 8 mg per tablet (two) times a day with meals. insulin lispro Inject 35 10 mL 12 02/13/2018 Discontinued (HumaLOG) 100 Units under 8 unit/mL injection the skin daily before dinner for 30 days. insulin lispro Inject 35 10 mL 12 02/14/2018 Discontinued (HumaLOG) 100 Units under 8 unit/mL injection the skin daily with breakfast for 30 days. insulin lispro Inject 35 10 mL 12 02/13/2018 Discontinued (HumaLOG) 100 Units under 8 unit/mL injection the skin daily before lunch for 30 days. insulin NPH Inject 50 10 mL 12 02/14/2018 Discontinued (HumuLIN-N) 100 Units under 8 unit/mL injection the skin daily for 30 days. insulin NPH Inject 55 10 mL 12 02/13/2018 Discontinued (HumuLIN-N) 100 Units under 8 unit/mL injection the skin nightly for 30 days. 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 Sr., Mixed hyperlipidemia; Essential hypertension; Type 2 diabetes mellitus with hyperosmolarity without coma, without long-term current use of insulin; Alcoholic cirrhosis of liver without ascites; Mild single current episode of major depressive disorder; Hypertriglyceridemia after 03/11/2017 Family History Medical History Relation Name Comments Diabetes Father Diabetes Mother Hypertension Mother Relation Name Status Comments Father Mother Social History Tobacco Use Types Packs/Day Years Used Date Current Every Day Smoker Cigarettes 3 Smokeless Tobacco: Never Used Alcohol Use Drinks/Week oz/Week Comments No Sex Assigned at Date Recorded Not on file Job Start Date Occupation Industry Not on file Not on file Not on file Travel History Travel Start Travel End No recent travel history available. Last Filed Vital Signs Vital Sign Reading Time Taken Blood Pressure 118/63 02/16/2018 12:12 PM CDT Pulse 61 02/16/2018 12:12 PM CDT Temperature 36.9 C (98.5 F) 02/16/2018 12:12 PM CDT Respiratory Rate 16 02/16/2018 12:12 PM CDT Oxygen Saturation 96% 02/16/2018 12:12 PM CDT Inhaled Oxygen Concentration - - Weight 85.3 kg (188 lb 1.6 oz) 07/12/2017 6:43 AM CDT Height 170.2 cm (5' 7") 02/07/2018 9:52 AM CDT Body Mass Index 29.46 07/12/2017 6:43 AM CDT Plan of Treatment Health Maintenance Due Date Last Done Comments DIABETIC RETINAL EYE EXAM 1965 MMR VACCINES (1 of 1 - Standard 07/30/1968 series) DIABETIC FOOT EXAM 07/30/1977 URINE MICROALBUMIN 07/30/1977 VARICELLA VACCINES (1 of 2 - 2-dose 07/30/1980 adolescent series) HEPATITIS B VACCINES (1 of 3 - Risk 07/30/1986 3-dose series) COLON CANCER SCREENING 07/30/2017 SHINGRIX VACCINE (1 of 2) 07/30/2017 INFLUENZA VACCINE 11/26/2017 IPV VACCINES Aged Out No longer eligible based on patient's age to complete this topic MENINGOCOCCAL VACCINE Aged Out No longer eligible based on patient's age to complete this topic 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 POC GLUCOSE Routine 02/16/2018 8:27 Results for this AM CDT procedure are in the results section. ESTIMATED GFR Routine 02/16/2018 4:00 Results for this AM CDT procedure are in the results section. BASIC METABOLIC PANEL Routine 02/16/2018 4:00 Results for this AM CDT procedure are in the results section. POC GLUCOSE Routine 02/15/2018 8:14 Results for this PM CDT procedure are in the results section. POC GLUCOSE Routine 02/15/2018 4:32 Results for this PM CDT procedure are in the results section. POC GLUCOSE Routine 02/15/2018 12:05 Results for this PM CDT procedure are in the results section. POC GLUCOSE Routine 02/15/2018 8:18 Results for this AM CDT procedure are in the results section. ESTIMATED GFR Routine 02/15/2018 4:00 Results for this AM CDT procedure are in the results section. BASIC METABOLIC PANEL Routine 02/15/2018 4:00 Results for this AM CDT procedure are in the results section. POC GLUCOSE Routine 02/14/2018 9:05 Results for this PM CDT procedure are in the results section. POC GLUCOSE Routine 02/14/2018 4:50 Results for this PM CDT procedure are in the results section. POC GLUCOSE Routine 02/14/2018 11:49 Results for this AM CDT procedure are in the results section. POC GLUCOSE Routine 02/14/2018 7:39 Results for this AM CDT procedure are in the results section. POC GLUCOSE Routine 02/14/2018 7:01 Results for this AM CDT procedure are in the results section. POC GLUCOSE Routine 02/13/2018 8:51 Results for this PM CDT procedure are in the results section. POC GLUCOSE Routine 02/13/2018 7:11 Results for this PM CDT procedure are in the results section. POC GLUCOSE Routine 02/13/2018 11:47 Results for this AM CDT procedure are in the results section. XR FOREARM 2 VW RIGHT Routine 02/13/2018 11:25 Results for this AM CDT procedure are in the results section. FL MODIFIED BARIUM Routine 02/13/2018 10:26 Results for this SWALLOW AM CDT procedure are in the results section. POC GLUCOSE Routine 02/13/2018 7:27 Results for this AM CDT procedure are in the results section. POC GLUCOSE Routine 02/13/2018 3:09 Results for this AM CDT procedure are in the results section. POC GLUCOSE Routine 02/12/2018 8:48 Results for this PM CDT procedure are in the results section. POC GLUCOSE Routine 02/12/2018 4:16 Results for this PM CDT procedure are in the results section. POC GLUCOSE Routine 02/12/2018 2:01 Results for this PM CDT procedure are in the results section. CARDIAC MRI STROKE EVAL Routine 02/12/2018 12:06 Results for this W CONTRAST PM CDT procedure are in the results section. POC GLUCOSE Routine 02/12/2018 8:10 Results for this AM CDT procedure are in the results section. POC GLUCOSE Routine 02/12/2018 6:27 Results for this AM CDT procedure are in the results section. POC GLUCOSE Routine 02/11/2018 9:16 Results for this PM CDT procedure are in the results section. CT SINUS WO CONTRAST Routine 02/11/2018 8:24 Results for this PM CDT procedure are in the results section. POC GLUCOSE Routine 02/11/2018 4:11 Results for this PM CDT procedure are in the results section. POC GLUCOSE Routine 02/11/2018 2:18 Results for this PM CDT procedure are in the results section. POC GLUCOSE Routine 02/11/2018 12:59 Results for this PM CDT procedure are in the results section. POC GLUCOSE Routine 02/11/2018 11:35 Results for this AM CDT procedure are in the results section. POC GLUCOSE Routine 02/11/2018 7:13 Results for this AM CDT procedure are in the results section. ESTIMATED GFR Routine 02/11/2018 4:30 Results for this AM CDT procedure are in the results section. VITAMIN D 25 HYDROXY Routine 02/11/2018 4:30 Results for this LEVEL AM CDT procedure are in the results section. AMYLASE LEVEL Routine 02/11/2018 4:30 Results for this AM CDT procedure are in the results section. LIPASE LEVEL Routine 02/11/2018 4:30 Results for this AM CDT procedure are in the results section. BASIC METABOLIC PANEL Routine 02/11/2018 4:30 Results for this AM CDT procedure are in the results section. HC COMPLETE BLD COUNT Routine 02/11/2018 4:30 Results for this W/AUTO DIFF AM CDT procedure are in the results section. POC GLUCOSE Routine 02/10/2018 8:46 Results for this PM CDT procedure are in the results section. POC GLUCOSE Routine 02/10/2018 4:21 Results for this PM CDT procedure are in the results section. POC GLUCOSE Routine 02/10/2018 12:27 Results for this PM CDT procedure are in the results section. MRI BRAIN WO CONTRAST STAT 02/10/2018 12:02 Results for this PM CDT procedure are in the results section. POC GLUCOSE Routine 02/10/2018 10:01 Results for this AM CDT procedure are in the results section. POC GLUCOSE Routine 02/10/2018 7:42 Results for this AM CDT procedure are in the results section. ESTIMATED GFR Routine 02/10/2018 3:24 Results for this AM CDT procedure are in the results section. BASIC METABOLIC PANEL Routine 02/10/2018 3:24 Results for this AM CDT procedure are in the results section. HC COMPLETE BLD COUNT Routine 02/10/2018 3:24 Results for this W/AUTO DIFF AM CDT procedure are in the results section. POC GLUCOSE Routine 02/09/2018 10:46 Results for this PM CDT procedure are in the results section. POC GLUCOSE Routine 02/09/2018 9:36 Results for this PM CDT procedure are in the results section. POC GLUCOSE Routine 02/09/2018 8:08 Results for this PM CDT procedure are in the results section. POC GLUCOSE Routine 02/09/2018 3:30 Results for this PM CDT procedure are in the results section. POC GLUCOSE Routine 02/09/2018 11:45 Results for this AM CDT procedure are in the results section. HEMOGLOBIN A1C Routine 02/09/2018 9:58 Results for this AM CDT procedure are in the results section. POC GLUCOSE Routine 02/09/2018 8:43 Results for this AM CDT procedure are in the results section. ECHOCARDIOGRAM 2D Routine 02/09/2018 8:20 Results for this COMPLETE W MMODE AM CDT procedure are in SPECTRAL COLOR DOPPLER the results (93700) section. ESTIMATED GFR Routine 02/09/2018 4:14 Results for this AM CDT procedure are in the results section. BASIC METABOLIC PANEL Routine 02/09/2018 4:14 Results for this AM CDT procedure are in the results section. HC COMPLETE BLD COUNT Routine 02/09/2018 4:14 Results for this W/AUTO DIFF AM CDT procedure are in the results section. POC GLUCOSE Routine 02/08/2018 11:41 Results for this PM CDT procedure are in the results section. GLUCOSE LEVEL STAT 02/08/2018 8:33 Results for this PM CDT procedure are in the results section. POC GLUCOSE Routine 02/08/2018 8:13 Results for this PM CDT procedure are in the results section. POC GLUCOSE Routine 02/08/2018 3:47 Results for this PM CDT procedure are in the results section. POTASSIUM LEVEL STAT 02/08/2018 3:27 Results for this PM CDT procedure are in the results section. MAGNESIUM LEVEL STAT 02/08/2018 3:27 Results for this PM CDT procedure are in the results section. T4, FREE Routine 02/08/2018 12:16 Results for this PM CDT procedure are in the results section. THYROID STIMULATING Routine 02/08/2018 12:16 Results for this HORMONE PM CDT procedure are in the results section. LIPID PANEL Routine 02/08/2018 12:16 Results for this PM CDT procedure are in the results section. POC GLUCOSE Routine 02/08/2018 11:14 Results for this AM CDT procedure are in the results section. MRI LUMBAR SPINE WO Routine 02/08/2018 9:03 Results for this CONTRAST AM CDT procedure are in the results section. MRI THORACIC SPINE WO Routine 02/08/2018 8:49 Results for this CONTRAST AM CDT procedure are in the results section. MRI CERVICAL SPINE WO Routine 02/08/2018 8:30 Results for this CONTRAST AM CDT procedure are in the results section. POC GLUCOSE Routine 02/08/2018 7:55 Results for this AM CDT procedure are in the results section. POC GLUCOSE Routine 02/08/2018 5:20 Results for this AM CDT procedure are in the results section. HEMOGLOBIN A1C Routine 02/08/2018 3:45 Results for this AM CDT procedure are in the results section. POC GLUCOSE Routine 02/08/2018 1:44 Results for this AM CDT procedure are in the results section. URINE DRUGS OF ABUSE STAT 02/08/2018 1:00 Results for this SCREEN AM CDT procedure are in the results section. SEDIMENTATION RATE STAT 02/08/2018 1:00 Results for this AM CDT procedure are in the results section. SYPHILIS TREPONEMAL IGG Routine 02/07/2018 9:55 Results for this PM CDT procedure are in the results section. HIV AG/AB COMBINATION Routine 02/07/2018 9:55 Results for this PM CDT procedure are in the results section. HOMOCYSTINE, PLASMA STAT 02/07/2018 9:54 Results for this PM CDT procedure are in the results section. LIPID PANEL STAT 02/07/2018 9:54 Results for this PM CDT procedure are in the results section. VITAMIN B12 LEVEL STAT 02/07/2018 9:54 Results for this PM CDT procedure are in the results section. THYROID STIMULATING STAT 02/07/2018 9:54 Results for this HORMONE PM CDT procedure are in the results section. RHEUMATOID FACTOR STAT 02/07/2018 9:54 Results for this PM CDT procedure are in the results section. T4, FREE STAT 02/07/2018 9:54 Results for this PM CDT procedure are in the results section. FOLATE LEVEL STAT 02/07/2018 9:54 Results for this PM CDT procedure are in the results section. C-REACTIVE PROTEIN STAT 02/07/2018 9:54 Results for this PM CDT procedure are in the results section. POC GLUCOSE Routine 02/07/2018 8:37 Results for this PM CDT procedure are in the results section. MRI FACE WO CONTRAST STAT 02/07/2018 7:19 Results for this PM CDT procedure are in the results section. MRA NECK WO CONTRAST STAT 02/07/2018 7:19 Results for this PM CDT procedure are in the results section. MRA HEAD WO CONTRAST STAT 02/07/2018 6:53 Results for this PM CDT procedure are in the results section. MRI BRAIN WO CONTRAST STAT 02/07/2018 6:48 Results for this PM CDT procedure are in the results section. CLOSTRIDIUM DIFFICILE Routine 02/07/2018 6:00 Results for this TOXIN PM CDT procedure are in the results section. CT ANGIOGRAM HEAD W WO STAT 02/07/2018 2:25 Results for this CONTRAST PM CDT procedure are in the results section. CT ANGIOGRAM NECK W WO STAT 02/07/2018 2:12 Results for this CONTRAST PM CDT procedure are in the results section. CT HEAD WO CONTRAST STAT 02/07/2018 2:11 Results for this PM CDT procedure are in the results section. TROPONIN Timed 02/07/2018 1:20 Results for this PM CDT procedure are in the results section. URINE CULTURE Routine 02/07/2018 11:31 Results for this AM CDT procedure are in the results section. URINALYSIS SCREEN AND Routine 02/07/2018 11:17 Results for this MICROSCOPY, WITH REFLEX AM CDT procedure are in TO CULTURE the results section. BLOOD CULTURE, AEROBIC & Routine 02/07/2018 11:15 Results for this ANAEROBIC AM CDT procedure are in the results section. ECG ED PRELIMINARY Routine 02/07/2018 10:49 Results for this INTERPRETATION AM CDT procedure are in the results section. ESTIMATED GFR STAT 02/07/2018 10:30 Results for this AM CDT procedure are in the results section. PARTIAL THROMBOPLASTIN STAT 02/07/2018 10:30 Results for this TIME (PTT) AM CDT procedure are in the results section. PROTHROMBIN TIME WITH STAT 02/07/2018 10:30 Results for this INR AM CDT procedure are in the results section. B NATRIURETIC PEPTIDE STAT 02/07/2018 10:30 Results for this AM CDT procedure are in the results section. TROPONIN STAT 02/07/2018 10:30 Results for this AM CDT procedure are in the results section. BETA HYDROXYBUTYRATE STAT 02/07/2018 10:30 Results for this AM CDT procedure are in the results section. COMPREHENSIVE METABOLIC STAT 02/07/2018 10:30 Results for this PANEL AM CDT procedure are in the results section. HC COMPLETE BLD COUNT STAT 02/07/2018 10:30 Results for this W/AUTO DIFF AM CDT procedure are in the results section. BLOOD CULTURE, AEROBIC & Routine 02/07/2018 10:30 Results for this ANAEROBIC AM CDT procedure are in the results section. ECG 12-LEAD STAT 02/07/2018 10:01 Results for this AM CDT procedure are in the results section. POC GLUCOSE Routine 07/12/2017 12:05 Results for this PM CDT procedure are in the results section. ECHOCARDIOGRAM 2D Routine 07/12/2017 9:04 Results for this COMPLETE W MMODE AM CDT procedure are in SPECTRAL COLOR DOPPLER the results (20140) section. POC GLUCOSE Routine 07/12/2017 7:31 Results [...] procedure are in the results section. after 03/11/2017 Results POC glucose (02/16/2018 12:00 PM CDT)Only the most recent of51 resultswithin the time period is included. POC glucose 115 (H) 65 - 99 mg/dL [facility] DEPARTMENT OF PATHOLOGY AND Comment: GENOMIC MEDICINE [facility] Notified RN Meter ID: [id number] Head Start Coordinator: Nomi Damon Performing Organization Address City/State/Zipcode Phone Number [facility] DEPARTMENT OF PATHOLOGY AND [address] [place] [phone] [employer] MEDICINE Estimated GFR (02/16/2018 4:00 AM CDT)Only the most recent of6 resultswithin the time period is included. Estimated GFR 49 (A) mL/min/1.73 m2 [facility] DEPARTMENT OF Comment: PATHOLOGY AND GENOMIC CatergoryUnitsInterpretation MEDICINE G1 >=90 Normal or high G2 60-89Mildly decreased G1g38-84Dofwee to moderately decreased [id number] to severely decreased G4 15-29Severely decreased G5 <15Kidney failure The eGFR was calculated using the Chronic Kidney Disease Epidemiology Collaboration (CKD-EPI) equation. Interpretation is based on recommendations of the National Kidney Foundation-Kidney Disease Outcomes Quality Initiative (NKF-KDOQI) published in 2014. Specimen Plasma specimen Performing Organization Address City/State/Zipcode Phone Number [facility] DEPARTMENT OF PATHOLOGY AND [address] [place] [address] GENOMIC MEDICINE Basic metabolic panel (02/16/2018 4:00 AM CDT)Only the most recent of6 resultswithin the time period is included. Sodium 141 135 - 148 mEq/L [facility] DEPARTMENT OF PATHOLOGY AND GENOMIC MEDICINE Potassium 5.0 3.5 - 5.0 mEq/L [facility] DEPARTMENT OF PATHOLOGY AND GENOMIC MEDICINE Chloride 107 98 - 112 mEq/L [facility] DEPARTMENT OF PATHOLOGY AND GENOMIC MEDICINE CO2 26 24 - 31 mEq/L [facility] DEPARTMENT OF PATHOLOGY AND GENOMIC MEDICINE Anion gap 8@ANIO 7 - 15 mEq/L [facility] DEPARTMENT OF PATHOLOGY AND GENOMIC MEDICINE BUN 44 (H) 6 - 20 mg/dL [facility] DEPARTMENT OF PATHOLOGY AND GENOMIC MEDICINE Creatinine 1.60 (H) 0.70 - 1.20 mg/dL [facility] DEPARTMENT OF PATHOLOGY AND GENOMIC MEDICINE Glucose 225 (H) 65 - 99 mg/dL [facility] DEPARTMENT OF PATHOLOGY AND GENOMIC MEDICINE Calcium 8.8 8.3 - 10.2 mg/dL [facility] DEPARTMENT OF PATHOLOGY AND GENOMIC MEDICINE Specimen Plasma specimen Performing Organization Address City/[facility]/Zipcode Phone Number [facility] DEPARTMENT OF PATHOLOGY AND [address] [place] [address] [facility] XR Forearm 2 Vw Right (02/13/2018 11:25 AM CDT) Narrative Performed At EXAMINATION:XR FOREARM 2 VW RIGHT [facility] CLINICAL HISTORY:right forearm pain COMPARISON:none. IMPRESSION: 1.No displaced fractures or dislocations. IV catheter noted along the volar aspect of the forearm. [facility]-[id number] Procedure Note Hm Interface, Radiology Results Incoming - 02/13/2018 11:44 AM CDT EXAMINATION: XR FOREARM 2 VW RIGHT CLINICAL HISTORY: right forearm pain COMPARISON: none. IMPRESSION: 1. No displaced fractures or dislocations. IV catheter noted along the volar aspect of the forearm. [facility]-[id number] Performing Organization Address City/State/Zipcode Phone Number [facility] [address] [place] [address] [place] Modified Barium Swallow (02/13/2018 10:26 AM CDT) Narrative Performed At EXAMINATION:[place] MODIFIED BARIUM SWALLOW [facility] CLINICAL HISTORY:Dysphagiaunexplained history of CVA COMPARISON:None. Fluoroscopy time: 0.6 minute, 282 images FINDINGS: The patient swallowed varying consistencies of barium under direct lateral fluoroscopic evaluation. The study was performed in conjunction with speech pathology. IMPRESSION: Deep penetration to the vocal cord level with straw and thin barium. Other consistencies did not demonstrate significant penetration or aspiration. Please refer to Speech Pathology report for further details. [facility]-[id number] Procedure Note Interface, Radiology Results Incoming - 02/13/2018 11:42 AM CDT EXAMINATION: [place] MODIFIED BARIUM SWALLOW CLINICAL HISTORY: Dysphagia unexplained history of CVA COMPARISON: None. Fluoroscopy time: 0.6 minute, 282 images FINDINGS: The patient swallowed varying consistencies of barium under direct lateral fluoroscopic evaluation. The study was performed in conjunction with speech pathology. IMPRESSION: Deep penetration to the vocal cord level with straw and thin barium. Other consistencies did not demonstrate significant penetration or aspiration. Please refer to Speech Pathology report for further details. [facility]-[id number] Performing Organization Address City/State/Zipcode Phone Number [facility] [address] [place] [address] Cardiac mri stroke eval w contrast (02/12/2018 12:06 PM CDT) Narrative Performed At [facility] CMR Report Name:PAOLA KWONG :1965 Scan Date: 2018-02-12 10:53:10 Electronically signed by Usha Ventura M.D. 15:08:38 VITALS HEIGHT/WEIGHT HEIGHT:68.00 in 172.72 cm WEIGHT:188.01 lbs 85.28 kgs BSA/BP BSA:1.99 m^2 SYSTOLIC BP:133 mmHg DIASTOLIC BP:76 mmHg HEART RATE/RHYTHM BASELINE HR:58 BPM HEART RHYTHM:Other sinus bradycardia FINAL IMPRESSION: Decreased imaging quality given poor breath holding. The study was not optimized for valvular assessment. The following observations can be made A. NO INTRACARDIAC MASSES OR THROMBI. NO EVIDENCE OF MYOCARDIAL INFARCTION OR SCARRING. B. NORMAL LEFT AND RIGHT VENTRICULAR FUNCTION. SUMMARY Hemodynamic valve assessment of the valve not done. LEFT VENTRICLE: Quantitative LVEF 63%. LV wall thickness is normal. LV cavity size is normal. LV systolic function is normal. There is no LV mass/thrombus. VIABILITY: No evidence of scar or infarct. Normal. RIGHT VENTRICLE: Quantitative RVEF 51%. RV wall thickness is normal. RV cavity size is upper limits of normal. RV systolic function is lower limits of normal. There is no RV mass/thrombus. LV/RV SEPTUM: The ventricular septum is intact. LA/RA SEPTUM: There is lipomatous hypertrophy of the interatrial septum. LEFT ATRIUM: LA cavity size is normal. There is no LA mass/thrombus. RIGHT ATRIUM: RA cavity size is normal. There is no RA mass/thrombus. PERICARDIUM: Pericardium is normal. There is a small pericardial effusion. PLEURAL EFFUSION: There is no pleural effusion. AORTIC VALVE: Aortic valve is trileaflet. MITRAL VALVE: Mitral valve leaflets are normal. There is no mitral stenosis. TRICUSPID VALVE: Tricuspid valve leaflets are normal. There is no tricuspid stenosis. PULMONIC VALVE: Pulmonic valve leaflets are normal. There is no pulmonic stenosis. AORTIC ROOT: The aortic root is normal. CHEST: Thoracic aorta is of normal caliber without an aneurysm or dissection. Dilated main pulmonary artery (axial diameter 3 cm). VENOUS: Normal pulmonary venous anatomy. OTHER FINDINGS: Right renal cyst. CORE EXAM MEASUREMENTS VOLUMETRIC ANALYSIS . . || | LV | Reference| RV | Reference| +------+-------+------+ +------+ + | EDV| ml|168 |(123-193) |211 |(117-209) | | ESV| ml| 63 |(30-74) |103 |(26-84) | | CO | L/min | 5.25 || 5.40 || | MASS | g |156 |(113-181) ||| | SV | ml|105 |(82-129)|108 |(76-139)| | EF | % | 63 |(58-76) | 51 |(53-79) | '------+-------+------+ +------+ ' CARDIAC OUTPUT HR:50 BPM LV DIMENSIONS WALL THICKNESS - ANTEROSEPTAL:1.0 cm WALL THICKNESS - INFEROLATERAL:1.1 cm LV OMER:5.4 cm LV ESD:3.4 cm LA DIMENSIONS (LV SYSTOLE) DIAMETER:4.3 cm AREA - 2 CHAMBER:20 cm^2 LENGTH - 2 CHAMBER:5.4 cm AREA - 4 CHAMBER:32 cm^2 LENGTH - 4 CHAMBER:6.3 cm VOLUME:101 ml AORTIC ROOT DIMENSIONS ANNULUS:2.8 cm SINUS OF VALSALVA:3.7 cm SINOTUBULAR JUNCTION:3.0 cm EXTRACELLULAR VOLUME MEASUREMENT HEMATOCRIT:30.8 % HEMATOCRIT DATE:2018-02-12 00:00:00 17 SEGMENT . . | Segments | Wall Motion| Hyperenhancement | Stress Perfusion | Interpretation | + + + + --+ + | Base Anterior| Normal/Hyper | None ||| | Base Anteroseptal| Normal/Hyper | None ||| | Base Inferoseptal| Normal/Hyper | None ||| | Base Inferior| Normal/Hyper | None ||| | Base Inferolateral | Normal/Hyper | None ||| | Base Anterolateral | Normal/Hyper | None ||| | Mid Anterior | Normal/Hyper | None ||| | Mid Anteroseptal | Normal/Hyper | None ||| | Mid Inferoseptal | Normal/Hyper | None ||| | Mid Inferior | Normal/Hyper | None ||| | Mid Inferolateral| Normal/Hyper | None ||| | Mid Anterolateral| Normal/Hyper | None ||| | Apical Anterior| Normal/Hyper | None ||| | Apical Septal| Normal/Hyper | None ||| | Apical Inferior| Normal/Hyper | None ||| | Apical Lateral | Normal/Hyper | None ||| | [place] | Normal/Hyper | None ||| + + + + --+ + | RV Segments| Wall Motion| Hyperenhancement | Stress Perfusion | Interpretation | + + + + --+ + | RV Basal Anterior| Normal/Hyper | None ||| | RV Basal Inferior| Normal/Hyper | None ||| | RV Mid | Normal/Hyper | None ||| | RV Apical| Normal/Hyper | None ||| ' + + + --+ ' FINDINGS INFARCT/SCAR SIZE:0 % SCAN INFO GENERAL CONTRAST AGENT TYPE:Dot[employer] LOT NUMBER:[id number] EXPIRATION DATE:2018-09-26 00:00:00 VOLUME ADMINISTERED:26 ml DOSAGE FOR 0.5M:0.15 mmol/kg SERUM CREATININE:1.5 sCr GFR:52.65 ml/min/1.73m^2 CREATININE DATE:2018-02-12 00:00:00 SEDATION SEDATION USED?:Yes TYPE:Lorazepam DOSE:0.5 mg ANY REACTION?:No PULSE SEQUENCES Single-Shot SSFP, IR SSFP - Single Shot, SSFP Cine, Phase Contrast Velocity Mapping, 3D MRA w and w/o contrast, Time-Resolved 3D MRA SETUP TYPE:Clinical INPATIENT:Yes LOCATION:[facility] INCOMPLETE SCAN:No REASON(S) FOR SCAN:Stroke Evaluation REFERRING PHYSICIAN:Usha Oquendo MD ATTENDING PHYSICIAN:USHA LICEA TECHNICIANS:1) Danielle CASIANO Patient Account [id number] CPT Codes 76960, 87425 ICD10 Codes G45.9 Report generated by [employer], a product of [employer] Procedure Note Interface, Radiology Results In - 02/12/2018 3:08 PM CDT [place] [facility] CMR Report Name: PAOLA KWONG : 1965 Scan Date: 2018-02-12 10:53:10 Electronically signed by Usha Ventura M.D. 15:08:38 VITALS HEIGHT/WEIGHT HEIGHT: 68.00 in 172.72 cm WEIGHT: 188.01 lbs 85.28 kgs BSA/BP BSA: 1.99 m^2 SYSTOLIC BP: 133 mmHg DIASTOLIC BP: 76 mmHg HEART RATE/RHYTHM BASELINE HR: 58 BPM HEART RHYTHM: Other sinus bradycardia FINAL IMPRESSION: Decreased imaging quality given poor breath holding. The study was not optimized for valvular assessment. The following observations can be made A. NO INTRACARDIAC MASSES OR THROMBI. NO EVIDENCE OF MYOCARDIAL INFARCTION OR SCARRING. B. NORMAL LEFT AND RIGHT VENTRICULAR FUNCTION. SUMMARY Hemodynamic valve assessment of the valve not done. LEFT VENTRICLE: Quantitative LVEF 63%. LV wall thickness is normal. LV cavity size is normal. LV systolic function is normal. There is no LV mass/thrombus. VIABILITY: No evidence of scar or infarct. Normal. RIGHT VENTRICLE: Quantitative RVEF 51%. RV wall thickness is normal. RV cavity size is upper limits of normal. RV systolic function is lower limits of normal. There is no RV mass/thrombus. LV/RV SEPTUM: The ventricular septum is intact. LA/RA SEPTUM: There is lipomatous hypertrophy of the interatrial septum. LEFT ATRIUM: LA cavity size is normal. There is no LA mass/thrombus. RIGHT ATRIUM: RA cavity size is normal. There is no RA mass/thrombus. PERICARDIUM: Pericardium is normal. There is a small pericardial effusion. PLEURAL EFFUSION: There is no pleural effusion. AORTIC VALVE: Aortic valve is trileaflet. MITRAL VALVE: Mitral valve leaflets are normal. There is no mitral stenosis. TRICUSPID VALVE: Tricuspid valve leaflets are normal. There is no tricuspid stenosis. PULMONIC VALVE: Pulmonic valve leaflets are normal. There is no pulmonic stenosis. AORTIC ROOT: The aortic root is normal. CHEST: Thoracic aorta is of normal caliber without an aneurysm or dissection. Dilated main pulmonary artery (axial diameter 3 cm). VENOUS: Normal pulmonary venous anatomy. OTHER FINDINGS: Right renal cyst. CORE EXAM MEASUREMENTS VOLUMETRIC ANALYSIS . . | | | LV | Reference | RV | Reference | +------+-------+------+ +------+ + | EDV | ml | 168 | (123-193) | 211 | (117-209) | | ESV | ml | 63 | (30-74) | 103 | (26-84) | | CO | L/min | 5.25 | | 5.40 | | | MASS | g | 156 | (113-181) | | | | SV | ml | 105 | (82-129) | 108 | (76-139) | | EF | % | 63 | (58-76) | 51 | (53-79) | '------+-------+------+ +------+ ' CARDIAC OUTPUT HR: 50 BPM LV DIMENSIONS WALL THICKNESS - ANTEROSEPTAL: 1.0 cm WALL THICKNESS - INFEROLATERAL: 1.1 cm LV OMER: 5.4 cm LV ESD: 3.4 cm LA DIMENSIONS (LV SYSTOLE) DIAMETER: 4.3 cm AREA - 2 CHAMBER: 20 cm^2 LENGTH - 2 CHAMBER: 5.4 cm AREA - 4 CHAMBER: 32 cm^2 LENGTH - 4 CHAMBER: 6.3 cm VOLUME: 101 ml AORTIC ROOT DIMENSIONS ANNULUS: 2.8 cm SINUS OF VALSALVA: 3.7 cm SINOTUBULAR JUNCTION: 3.0 cm EXTRACELLULAR VOLUME MEASUREMENT HEMATOCRIT: 30.8 % HEMATOCRIT DATE: 2018-02-12 00:00:00 17 SEGMENT . . | Segments | Wall Motion | Hyperenhancement | Stress Perfusion | Interpretation | + + + + +---- + | Base Anterior | Normal/Hyper | None | | | | Base Anteroseptal | Normal/Hyper | None | | | | Base Inferoseptal | Normal/Hyper | None | | | | Base Inferior | Normal/Hyper | None | | | | Base Inferolateral | Normal/Hyper | None | | | | Base Anterolateral | Normal/Hyper | None | | | | Mid Anterior | Normal/Hyper | None | | | | Mid Anteroseptal | Normal/Hyper | None | | | | Mid Inferoseptal | Normal/Hyper | None | | | | Mid Inferior | Normal/Hyper | None | | | | Mid Inferolateral | Normal/Hyper | None | | | | Mid Anterolateral | Normal/Hyper | None | | | | Apical Anterior | Normal/Hyper | None | | | | Apical Septal | Normal/Hyper | None | | | | Apical Inferior | Normal/Hyper | None | | | | Apical Lateral | Normal/Hyper | None | | | | [place] | Normal/Hyper | None | | | + + + + +---- + | RV Segments | Wall Motion | Hyperenhancement | Stress Perfusion | Interpretation | + + + + +---- + | RV Basal Anterior | Normal/Hyper | None | | | | RV Basal Inferior | Normal/Hyper | None | | | | RV Mid | Normal/Hyper | None | | | | RV Apical | Normal/Hyper | None | | | ' + + + +---- ' FINDINGS INFARCT/SCAR SIZE: 0 % SCAN INFO GENERAL CONTRAST AGENT TYPE: [employer] LOT NUMBER: [id number] EXPIRATION DATE: 2018-09-26 00:00:00 VOLUME ADMINISTERED: 26 ml DOSAGE FOR 0.5M: 0.15 mmol/kg SERUM CREATININE: 1.5 sCr GFR: 52.65 ml/min/1.73m^2 CREATININE DATE: 2018-02-12 00:00:00 SEDATION SEDATION USED?: Yes TYPE: Lorazepam DOSE: 0.5 mg ANY REACTION?: No PULSE SEQUENCES Single-Shot SSFP, IR SSFP - Single Shot, SSFP Cine, Phase Contrast Velocity Mapping, 3D MRA w and w/o contrast, Time-Resolved 3D MRA SETUP TYPE: Clinical INPATIENT: Yes LOCATION: [facility] INCOMPLETE SCAN: No REASON(S) FOR SCAN: Stroke Evaluation REFERRING PHYSICIAN: Usha Oquendo MD ATTENDING PHYSICIAN: USHA LICEA TECHNICIANS: 1) Danielle CASIANO Patient Account [id number] CPT Codes 74587, 89971 ICD10 Codes G45.9 Report generated by [employer], a product of [email or web address] Organization Address City/State/Zipcode Phone Number [facility] [address] [place] [address] CT Sinus Wo Contrast (02/11/2018 8:24 PM CDT) Narrative Performed At EXAMINATION:CT SINUS WO CONTRAST [facility] CT IMAGING WAS PERFORMED WITH ITERATIVE RECONSTRUCTION TECHNIQUE AND/OR AUTOMATED EXPOSURE CONTROL TO REDUCE RADIATION DOSE. CLINICAL HISTORY:nose bleeds and recent trauma COMPARISON:None. FINDINGS: 1. There is no fracture demonstrated. 2.There is no evidence of a nasal cavity lesion. There is slight deviation of the anterior nasal septum towards the left. 3.There is minimal mucosal thickening in the ethmoid and maxillary sinuses. 4.There is minimal fluid in the mastoid on the left. IMPRESSION: No significant abnormality. [facility]-[id number] Procedure Note Interface, Radiology Results Incoming - 02/11/2018 9:27 PM CDT EXAMINATION: CT SINUS WO CONTRAST CT IMAGING WAS PERFORMED WITH ITERATIVE RECONSTRUCTION TECHNIQUE AND/OR AUTOMATED EXPOSURE CONTROL TO REDUCE RADIATION DOSE. CLINICAL HISTORY: nose bleeds and recent trauma COMPARISON: None. FINDINGS: 1. There is no fracture demonstrated. 2. There is no evidence of a nasal cavity lesion. There is slight deviation of the anterior nasal septum towards the left. 3. There is minimal mucosal thickening in the ethmoid and maxillary sinuses. 4. There is minimal fluid in the mastoid on the left. IMPRESSION: No significant abnormality. [facility]-[id number] Performing Organization Address [facility] Phone Number [facility] [address] [place] [address] Vitamin D 25 hydroxy level (02/11/2018 4:30 AM CDT) Vitamin D, 25-hydroxy 6.5 (L) 30.0 - 150.0 [facility] DEPARTMENT OF Comment: ng/mL PATHOLOGY AND GENOMIC This assay reports the sum of 25-hydroxy vitamin D3 and 25-hydroxy vitamin MEDICINE D2. Reference range: 0-17 years: Deficiency: less than 20ng/mL Optimum level: greater than or equal to 20 ng/mL. 18 years and older: Deficiency: less than 20ng/mL Insufficiency: 20-29 ng/mL Optimum Level: 30-80 ng/mL The assay reportable range is 3.4155.9 ng/mL. Levels higher than 150 ng/mL may be associated with toxicity. If toxicity is clinically suspected and the reported result is >155.9 ng/mL,contact lab for alternative methods to obtain a definitivelevel. If separate quantitation of 25-hydroxy vitamin D3 and 25-hydroxy vitamin D2 is needed, please contact lab for alternative methods. Specimen Blood Performing Organization Address [facility]/Zipcode Phone Number [facility] DEPARTMENT OF PATHOLOGY AND [address] [place] [address] [employer] MEDICINE CBC with platelet and differential (02/11/2018 4:30 AM CDT)Only the most recent of6 resultswithin the time period is included. WBC 4.34 (L) 4.50 - 11.00 k/uL [facility] DEPARTMENT OF PATHOLOGY AND GENOMIC MEDICINE RBC 3.46 (L) 4.40 - 6.00 m/uL [facility] DEPARTMENT OF PATHOLOGY AND GENOMIC MEDICINE HGB 10.8 (L) 14.0 - 18.0 g/dL [facility] DEPARTMENT OF PATHOLOGY AND GENOMIC MEDICINE HCT 30.8 (L) 41.0 - 51.0 % [facility] DEPARTMENT OF PATHOLOGY AND GENOMIC MEDICINE MCV 89.0 82.0 - 100.0 fL [facility] DEPARTMENT OF PATHOLOGY AND GENOMIC MEDICINE MCH 31.2 27.0 - 34.0 pg [facility] DEPARTMENT OF PATHOLOGY AND GENOMIC MEDICINE MCHC 35.1 31.0 - 37.0 g/dL [facility] DEPARTMENT OF PATHOLOGY AND GENOMIC MEDICINE RDW - SD 42.8 37.0 - 55.0 fL [facility] DEPARTMENT OF PATHOLOGY AND GENOMIC MEDICINE MPV 12.7 8.8 - 13.2 fL [facility] DEPARTMENT OF PATHOLOGY AND GENOMIC MEDICINE Platelet count 135 (L) 150 - 400 k/uL [facility] DEPARTMENT OF PATHOLOGY AND GENOMIC MEDICINE Nucleated RBC 0.00 /100 WBC [facility] DEPARTMENT OF PATHOLOGY AND GENOMIC MEDICINE Neutrophils 50.7 39.0 - 69.0 % [facility] DEPARTMENT OF PATHOLOGY AND GENOMIC MEDICINE Lymphocytes 34.3 25.0 - 45.0 % [facility] DEPARTMENT OF PATHOLOGY AND GENOMIC MEDICINE Monocytes 6.7 0.0 - 10.0 % [facility] DEPARTMENT OF PATHOLOGY AND GENOMIC MEDICINE Eosinophils 7.1 (H) 0.0 - 5.0 % [facility] DEPARTMENT OF PATHOLOGY AND GENOMIC MEDICINE Basophils 0.5 0.0 - 1.0 % [facility] DEPARTMENT OF PATHOLOGY AND GENOMIC MEDICINE Immature granulocytes 0.7Comment: 0.0 - 1.0 % [facility] DEPARTMENT OF "Immature PATHOLOGY AND GENOMIC granulocytes" MEDICINE (promyelocytes, myelocytes, metamyelocytes) Specimen Blood Performing Organization Address City/State/Zipcode Phone Number [facility] DEPARTMENT OF PATHOLOGY AND [address] [place] [address] [facility] Lipase level (02/11/2018 4:30 AM CDT) Lipase 77 (H) 13 - 60 U/L [facility] DEPARTMENT OF PATHOLOGY AND GENOMIC MEDICINE Specimen Plasma specimen Performing Organization Address [facility] Cent[facility]ode Phone Number [facility] DEPARTMENT OF PATHOLOGY AND [address] [place] [address] [facility] Amylase level (02/11/2018 4:30 AM CDT) Amylase 71 28 - 100 U/L [facility] DEPARTMENT OF PATHOLOGY AND GENOMIC MEDICINE Specimen Plasma specimen Performing Organization Address [facility] Centercode Phone Number [facility] DEPARTMENT OF PATHOLOGY AND [address] [place] [address] [facility] MRI Brain Wo Contrast (02/10/2018 12:02 PM CDT)Only the most recent of2 resultswithin the time period is included. Narrative Performed At EXAMINATION: MRI BRAIN WO CONTRAST [facility] CLINICAL HISTORY: NEURO DEFICITACUTESINGLEPROGRESSING, STROKE COMPARISON:MRI brain from February 07, 2018. TECHNIQUE: Multiplanar and multisequence MRI imaging of the brain was obtained without contrast. FINDINGS: There is small areas of recent stroke in the right posterior medulla as seen on the prior exam. There is no evidence of acute hemorrhage or significant mass effect. The rest of the brain and extra axial region are relatively stable without significant abnormality. There is partial opacification of a few inferior left mastoid air cells. IMPRESSION: No significant changes compared to prior exam. 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 [facility]-[id number] Procedure Note Interface, Radiology Results Incoming - 02/10/2018 12:40 PM CDT EXAMINATION: MRI BRAIN WO CONTRAST CLINICAL HISTORY: NEURO DEFICIT ACUTE SINGLE PROGRESSING, STROKE COMPARISON: MRI brain from February 07, 2018. TECHNIQUE: Multiplanar and multisequence MRI imaging of the brain was obtained without contrast. FINDINGS: There is small areas of recent stroke in the right posterior medulla as seen on the prior exam. There is no evidence of acute hemorrhage or significant mass effect. The rest of the brain and extra axial region are relatively stable without significant abnormality. There is partial opacification of a few inferior left mastoid air cells. IMPRESSION: No significant changes compared to prior exam. 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 [facility]-[id number] Performing Organization Address [facility]/Zipcode Phone Number [facility] [address] [place] [address] Hemoglobin A1c (02/09/2018 9:58 AM CDT)Only the most recent of3 resultswithin the time period is included. Hemoglobin A1C 12.7 (H) 4.0 - 5.6 % [facility] DEPARTMENT OF PATHOLOGY Comment: AND [employer] MEDICINE HbA1c cutoffs for diagnosing diabetes: 4.0% - 5.6%=normal 5.7% - 6.4%=increased risk for diabetes (prediabetes) >=6.5%=diabetes Goals for glycemic control (ADA 2016) < 7.0%Target for non adults with diabetes. More or less stringent targets may be appropriate for individual patients. <7.5% Target for Children and adolescents with type 1 diabetes. Specimen Blood Performing Organization Address City/State/Zipcode Phone Number [facility] DEPARTMENT OF PATHOLOGY AND [address] [place] [address] Echocardiogram complete w contrast and 3D if needed (02/09/2018 8:20 AM CDT) Narrative Performed At [facility] Echocardiography Report [address] [address], [place] [address] Pat.Name:PAOLA KWONG Pat.ID:[id number] .Date: 02/09/2018Refer.MD:MILTON ELLINGTON MD Exam Time: 7:43:00 AMStudy Type:Routine Echo Height:67inBSA: 1.97 m2 DOBAge:1965,52YSex: MALE BP:127/63HR: 68 bpm Sonogrphr: Rosemary Slater RDCS, RVTPat. Stat.:Inpatient Room:[address] Study Status:Final Echo Event ID:[id number] Order ID:[id number] Reason for Study:Stroke History / Clinical:Chest Pain, Diabetes, Hyperlipidemia, Hypertension, Cirrhosis, [place], Infectious Viral Hepatitis Procedures:2D Echo, Colorflow Doppler, Strain, Intravenous Saline Contrast Race:C SUMMARY: Normal biventricular function. No hemodynamically significant valvular lesions. LA volume is mild to moderately enlarged. LV filling pressure is normal. FINDINGS: LV: LV size is normal. LV EF is normal. Overall wall motion is normal.Estimated EF is 65-69% The average GLPS of 18.2% RV: RV size is normal. RV systolic function is normal. LA: LA volume is mild to moderately enlarged. RA: RA volume is normal. AO: Aortic root diameter is normal. MACHO: No pericardial effusion. AV: No structural AV abnormalities noted. A trace of aortic regurgitation. MV: No structural MV abnormalities noted. A trace of mitral regurgitation. PV: No structural PV abnormalities noted. A trace of pulmonic regurgitation. TV: No structural TV abnormalities noted. A trace of tricuspid regurgitation Jose: LV relaxation is reduced, appropriate for age. LV filling pressureis normal. Other:Insufficient TR jet to estimate PA systolic pressure. MEASUREMENTS: 2D Parasternal [place] LVOT 2.2 cmLA Ds4.2 cm LVIDd5 cmIndex2.5 cm/m Ao An2.5 cm LVIDs2.8 cmAo Rtd 3.4 cm Index1.7 cm/m LV%fs 44 % LV Ptlq797.4 g(122-174) IVSd 1 cmLVM Index 98.7 g/m2 LVPWd1.1 cmRWT0.4 LA Sng Plane LA Area 24.3 cm2(8.8-23.4) LA Vol78.5 ml Index39.8 ml/m LA LngAx 6.5 cm DOPPLER LVOT Stroke Vol LVOT 2.2 cmLVOT CO4.9 l/min LVOT TVI21.7 cmLVOT CI2.5 l/m/m2 LVOT Tm382 sxjnSK62 bpm LVOT SV 82.6 ml Signed 02/09/2018 02:05 PM Tulio Daniels M.D. Procedure Note Interface, Radiology Results In - 02/09/2018 2:05 PM CDT Echocardiography Report [id number] [id number] Pat.Name: PAOLA KWONG.ID: [id number] St.Date: 02/09/2018 Refer.MD: MILTON ELLINGTON MD Exam Time: 7:43:00 AM Study Type:Routine Echo Height: 67in BSA: 1.97 m2 Age: 6 1965,52Y Sex: MALE BP: 127/63 HR: 68 bpm Sonogrphr: Rosemary Slater RDCS, RVT Pat. Stat.:Inpatient Room: [address] Study Status:Final Echo Event ID:[id number] Order ID: [id number] Reason for Study:Stroke History / Clinical:Chest Pain, Diabetes, Hyperlipidemia, Hypertension, Cirrhosis, [place], Infectious Viral Hepatitis Procedures:2D Echo, Colorflow Doppler, Strain, Intravenous Saline Contrast Race: C SUMMARY: Normal biventricular function. No hemodynamically significant valvular lesions. LA volume is mild to moderately enlarged. LV filling pressure is normal. FINDINGS: LV: LV size is normal. LV EF is normal. Overall wall motion is normal. Estimated EF is 65-69% The average GLPS of 18.2% RV: RV size is normal. RV systolic function is normal. LA: LA volume is mild to moderately enlarged. RA: RA volume is normal. AO: Aortic root diameter is normal. MACHO: No pericardial effusion. AV: No structural AV abnormalities noted. A trace of aortic regurgitation. MV: No structural MV abnormalities noted. A trace of mitral regurgitation. PV: No structural PV abnormalities noted. A trace of pulmonic regurgitation. TV: No structural TV abnormalities noted. A trace of tricuspid regurgitation Jose: LV relaxation is reduced, appropriate for age. LV filling pressure is normal. Other: Insufficient TR jet to estimate PA systolic pressure. MEASUREMENTS: 2D Parasternal [place] LVOT 2.2 cm LA Ds 4.2 cm LVIDd 5 cm Index 2.5 cm/m Ao An 2.5 cm LVIDs 2.8 cm Ao Rtd 3.4 cm Index 1.7 cm/m LV%fs 44 % LV Mass 194.4 g (122-174) IVSd 1 cm LVM Index 98.7 g/m2 LVPWd 1.1 cm RWT 0.4 LA Sng Plane LA Area 24.3 cm2 (8.8-23.4) LA Vol 78.5 ml Index 39.8 ml/m LA LngAx 6.5 cm DOPPLER LVOT Stroke Vol LVOT 2.2 cm LVOT CO 4.9 l/min LVOT TVI 21.7 cm LVOT CI 2.5 l/m/m2 LVOT Tm 382 msec HR 59 bpm LVOT SV 82.6 ml Signed 02/09/2018 02:05 PM Tulio Daniels M.D. Performing Organization Address [facility] Phone Number [facility] [address] [place] [address] Glucose level (02/08/2018 8:33 PM CDT) Glucose 502 (HH) 65 - 99 mg/dL [facility] DEPARTMENT OF PATHOLOGY AND GENOMIC MEDICINE Specimen Plasma specimen Performing Organization Address [facility] Phone Number [facility] DEPARTMENT OF PATHOLOGY AND [address] [place] [address] [facility] MEDICINE Potassium level (02/08/2018 3:27 PM CDT) Potassium 4.3 3.5 - 5.0 mEq/L [facility] DEPARTMENT OF PATHOLOGY AND GENOMIC MEDICINE Specimen Plasma specimen Performing Organization Address [facility] Phone Number [facility] DEPARTMENT OF PATHOLOGY AND [address] [place] [address] Magnesium level (02/08/2018 3:27 PM CDT) Magnesium 2.0 1.6 - 2.6 mg/dL [facility] DEPARTMENT OF PATHOLOGY AND GENOMIC MEDICINE Specimen Plasma specimen Performing Organization Address [facility] Phone Number [facility] DEPARTMENT OF PATHOLOGY AND [address] [place] [address] Thyroid stimulating hormone (02/08/2018 12:16 PM CDT)Only the most recent of4 resultswithin the time period is included. TSH 0.76 0.27 - 4.20 uIU/mL [facility] DEPARTMENT OF PATHOLOGY AND GENOMIC MEDICINE Specimen Plasma specimen Performing Organization Address [facility] Phone Number [facility] DEPARTMENT OF PATHOLOGY AND [address] [place] [address] T4, free (02/08/2018 12:16 PM CDT)Only the most recent of4 resultswithin the time period is included. T4, free 1.0 0.9 - 1.7 ng/dL [facility] DEPARTMENT OF PATHOLOGY AND GENOMIC MEDICINE Specimen Plasma specimen Performing Organization Address [facility] Phone Number [facility] DEPARTMENT OF PATHOLOGY AND [address] [place] [address] Lipid panel (02/08/2018 12:16 PM CDT)Only the most recent of4 resultswithin the time period is included. Cholesterol 208 (H) <200 mg/dL [facility] DEPARTMENT OF PATHOLOGY AND GENOMIC MEDICINE Triglycerides 591 (H) <150 mg/dL [facility] DEPARTMENT OF PATHOLOGY AND GENOMIC MEDICINE HDL cholesterol 28 (L) >40 mg/dL [facility] DEPARTMENT OF PATHOLOGY AND GENOMIC MEDICINE LDL cholesterol 124 (H)Comment: Result <100 mg/dL [facility] DEPARTMENT OF obtained by direct LDL PATHOLOGY AND GENOMIC measurement MEDICINE Lipid panel interpretation SeeBelow [facility] DEPARTMENT OF Comment: PATHOLOGY AND GENOMIC Total Cholesterol (mg/dL) MEDICINE <200 Desirable 645-120Xoorujyglc-syjx >=240High Triglycerides (mg/dL) <150 Normal 030-686Xpylmflmtp-lwzb 200-499High >=500Very high HDL Cholesterol (mg/dL) <40Low (male) <40Low (female) LDL Cholesterol (mg/dL) <100 Optimal 100-129Near or above optimal 546-689Gciyjdghdz-hnfs 160-189High >=190Very high Risk Catergories that modify [...] mg/dL) Specimen Plasma specimen Performing Organization Address City/State/Zipcode Phone Number [facility] DEPARTMENT OF PATHOLOGY AND [address] [place] [address] [employer] MEDICINE MRI Lumbar Spine Wo Contrast (02/08/2018 9:03 AM CDT) Narrative Performed At EXAMINATION:MRI LUMBAR SPINE WO CONTRAST [facility] CLINICAL HISTORY:sensory levelsuspect compression COMPARISON:None. FINDINGS: Lowermost functional disc space is assumed to be L5-S1. Lumbar spine alignement is within normal limits Heterogeneous bone marrow signal without focal suspicious lesion. Visualized spinal cord is normal in appearance. L1-2: No canal or foraminal narrowing. L2-3: No canal or foraminal narrowing. Mild facet arthropathy. L3-4: Mild facet arthropathy. Mild posterior disc bulge. No canal or foraminal narrowing. L4-5: Posterior disc bulge and bilateral facet arthropathy causes mild narrowing of the foramina. No central canal narrowing. L5-S1: Lateral osteophytosis. Bilateral facet arthropathy. Small posterior central disc protrusion. No canal or foraminal narrowing. IMPRESSION: Mild L4-5 bilateral foraminal narrowing. No central canal narrowing. [facility]-[id number] Procedure Note Interface, Radiology Results Incoming - 02/08/2018 11:11 AM CDT EXAMINATION: MRI LUMBAR SPINE WO CONTRAST CLINICAL HISTORY: sensory level suspect compression COMPARISON: None. FINDINGS: Lowermost functional disc space is assumed to be L5-S1. Lumbar spine alignement is within normal limits Heterogeneous bone marrow signal without focal suspicious lesion. Visualized spinal cord is normal in appearance. L1-2: No canal or foraminal narrowing. L2-3: No canal or foraminal narrowing. Mild facet arthropathy. L3-4: Mild facet arthropathy. Mild posterior disc bulge. No canal or foraminal narrowing. L4-5: Posterior disc bulge and bilateral facet arthropathy causes mild narrowing of the foramina. No central canal narrowing. L5-S1: Lateral osteophytosis. Bilateral facet arthropathy. Small posterior central disc protrusion. No canal or foraminal narrowing. IMPRESSION: Mild L4-5 bilateral foraminal narrowing. No central canal narrowing. [facility]-[id number] Performing Organization Address [facility] Phone Number [facility] [address] [place] [address] MRI Thoracic Spine Wo Contrast (02/08/2018 8:49 AM CDT) Narrative Performed At EXAMINATION:MRI THORACIC SPINE WO CONTRAST [facility] CLINICAL HISTORY:sensory level suspected compression COMPARISON:None. IMPRESSION: Thoracic spine alignment is within normal limits. Heterogeneous bone marrow signal without focal suspicious lesions. Visualized spinal cord is normal in size and signal intensity. Mild multilevel endplate degenerative changes. No central canal or foraminal narrowing in the thoracic spine. [id number] Procedure Note Hm Interface, Radiology Results Incoming - 02/08/2018 11:09 AM CDT EXAMINATION: MRI THORACIC SPINE WO CONTRAST CLINICAL HISTORY: sensory level suspected compression COMPARISON: None. IMPRESSION: Thoracic spine alignment is within normal limits. Heterogeneous bone marrow signal without focal suspicious lesions. Visualized spinal cord is normal in size and signal intensity. Mild multilevel endplate degenerative changes. No central canal or foraminal narrowing in the thoracic spine. [facility]-[id number] Performing Organization Address [facility] Phone Number [facility] [address] [place] [address] MRI Cervical Spine Wo Contrast (02/08/2018 8:30 AM CDT) Narrative Performed At EXAMINATION:MRI CERVICAL SPINE WO CONTRAST [facility] CLINICAL HISTORY:sensory levelconcern compression COMPARISON:None. TECHNIQUE: Standard noncontrast cervical spine MRI. FINDINGS: The study is limited by patient motion. Evaluation of the spinal canal is also limited by CSF pulsation artifact on axial T2-weighted images. Accounting for this limitation, the spinal cord and visualized posterior fossa are normal in signal. There is mild straightening of normal cervical lordosis with minimal 1 mm posterior subluxation of C6 on C7, probably from spondylosis. The C6-7 disc is moderately narrowed. Vertebral body heights are preserved. Bone marrow signal is mildly heterogeneous with no evidence of acute fracture or suspicious marrow-replacing lesion. C2-3: There is mild ligamentum flavum thickening with no significant posterior disc pathology, spinal canal or neural foraminal stenosis. C3-4: There are mild ligamentum flavum thickening and mild disc bulge with no significant spinal canal or neural foraminal stenosis. C4-5: There is small shallow central disc protrusion with no significant spinal canal or neural foraminal stenosis. C5-6: There is small shallow central disc protrusion with no significant spinal canal or neural foraminal stenosis. C6-7: Disc bulge results in bilateral neural foraminal stenoses encroaching on exiting C7 nerve roots. No significant spinal canal stenosis. C7-T1: There is no significant posterior disc pathology, spinal canal or neural foraminal stenosis. Visualized neck soft tissues are unremarkable. IMPRESSION: Limited study secondary to patient motion. Unremarkable spinal cord. Cervical spondylosis most significant at C6-7 with bilateral neural foraminal stenoses encroaching on C7 nerve roots. No significant spinal canal stenosis. [facility]-[id number] Procedure Note Interface, Radiology Results Incoming - 02/08/2018 9:06 AM CDT EXAMINATION: MRI CERVICAL SPINE WO CONTRAST CLINICAL HISTORY: sensory level concern compression COMPARISON: None. TECHNIQUE: Standard noncontrast cervical spine MRI. FINDINGS: The study is limited by patient motion. Evaluation of the spinal canal is also limited by CSF pulsation artifact on axial T2-weighted images. Accounting for this limitation, the spinal cord and visualized posterior fossa are normal in signal. There is mild straightening of normal cervical lordosis with minimal 1 mm posterior subluxation of C6 on C7, probably from spondylosis. The C6-7 disc is moderately narrowed. Vertebral body heights are preserved. Bone marrow signal is mildly heterogeneous with no evidence of acute fracture or suspicious marrow-replacing lesion. C2-3: There is mild ligamentum flavum thickening with no significant posterior disc pathology, spinal canal or neural foraminal stenosis. C3-4: There are mild ligamentum flavum thickening and mild disc bulge with no significant spinal canal or neural foraminal stenosis. C4-5: There is small shallow central disc protrusion with no significant spinal canal or neural foraminal stenosis. C5-6: There is small shallow central disc protrusion with no significant spinal canal or neural foraminal stenosis. C6-7: Disc bulge results in bilateral neural foraminal stenoses encroaching on exiting C7 nerve roots. No significant spinal canal stenosis. C7-T1: There is no significant posterior disc pathology, spinal canal or neural foraminal stenosis. Visualized neck soft tissues are unremarkable. IMPRESSION: Limited study secondary to patient motion. Unremarkable spinal cord. Cervical spondylosis most significant at C6-7 with bilateral neural foraminal stenoses encroaching on C7 nerve roots. No significant spinal canal stenosis. [facility]-[id number] Performing Organization Address [facility] Phone Number [facility] [address] [place] [address] Urine drugs of abuse screen (02/08/2018 1:00 AM CDT) Amphetamine screen, urine Negative [facility] DEPARTMENT OF PATHOLOGY AND GENOMIC MEDICINE Barbiturate screen, urine Negative [facility] DEPARTMENT OF PATHOLOGY AND GENOMIC MEDICINE Benzodiazepine screen, Negative [facility] DEPARTMENT OF urine PATHOLOGY AND GENOMIC MEDICINE Cannabinoid screen, urine Negative [facility] DEPARTMENT OF PATHOLOGY AND GENOMIC MEDICINE Cocaine screen, urine Negative [facility] DEPARTMENT OF PATHOLOGY AND GENOMIC MEDICINE Methadone metabolite Negative [facility] DEPARTMENT OF (EDDP), urine PATHOLOGY AND GENOMIC MEDICINE Opiates screen, urine Negative [facility] DEPARTMENT OF PATHOLOGY AND GENOMIC MEDICINE Oxycodone screen, urine Negative [facility] DEPARTMENT OF PATHOLOGY AND GENOMIC MEDICINE Phencyclidine screen, urine Negative [facility] DEPARTMENT OF PATHOLOGY AND GENOMIC MEDICINE Tricyclic screen, urine Negative [facility] DEPARTMENT OF Comment: PATHOLOGY AND GENOMIC Drug screen minimum concentration of detectability MEDICINE Nhvuhrpsvpzd4810 ng/mL Barbiturates 200 ng/mL Rrwjutplvdvtcmr561 ng/mL Cedwonm774 ng/mL Ksqqksqur418 ng/mL Vqfzkwi721 ng/mL Qmqmjwdgb410 ng/mL Phencyclidine 25 ng/mL Ayewtsorokor25 ng/mL Poumygopyg7489 ng/mL Negative test results indicates presumptive evidence of lack of clinically significant drug concentration in this urine specimen. Positive test results are presumptive evidence of clinically significant drug concentration in this urine specimen. Testing performed for medical purposes only. Specimen Urine Performing Organization Address [facility] Phone Number [facility] DEPARTMENT OF PATHOLOGY AND [address] [place] [address] [employer] MEDICINE Sedimentation rate (02/08/2018 1:00 AM CDT) Sedimentation rate 48 (H) 0 - 10 mm/hr [facility] DEPARTMENT OF PATHOLOGY AND GENOMIC MEDICINE Specimen Blood Performing Organization Address City/[facility] Phone Number [facility] DEPARTMENT OF PATHOLOGY AND [address] [place] [address] Syphilis treponemal IgG (02/07/2018 9:55 PM CDT) Syphilis treponemal IgG Non-reactiveComment: Non-reactive [facility] DEPARTMENT OF Non-reactive: No PATHOLOGY AND GENOMIC serological evidence of MEDICINE Syphilis infection Specimen Serum Performing Organization Address [facility] Phone Number [facility] DEPARTMENT OF PATHOLOGY AND [address] [place] [address] HIV Ag/Ab combination (02/07/2018 9:55 PM CDT) HIV Ag/Ab combination Non-reactive Non-reactive [facility] DEPARTMENT OF PATHOLOGY AND GENOMIC MEDICINE Specimen Blood Performing Organization Address [facility] Phone Number [facility] DEPARTMENT OF PATHOLOGY AND [address] [place] [address] Homocystine, plasma (02/07/2018 9:54 PM CDT) Homocysteine 16.5 (H) 0.0 - 15.0 umol/L [facility] DEPARTMENT OF Comment: PATHOLOGY AND GENOMIC The risk for coronary vascular disease increases progressively MEDICINE with homocysteine concentration.A 3.4 times greater risk is associated with a homocysteine concentration of greater than 15.8 umol/L as compared to a concentration below 14.1 umol/L. Specimen Plasma specimen Performing Organization Address [facility] Phone Number [facility] DEPARTMENT OF PATHOLOGY AND [address] [place] [address] Rheumatoid factor (02/07/2018 9:54 PM CDT) Rheumatoid factor <10 0 - 13 IU/mL [facility] DEPARTMENT OF PATHOLOGY AND GENOMIC MEDICINE Specimen Plasma specimen Performing Organization Address [facility] Phone Number [facility] DEPARTMENT OF PATHOLOGY AND [address] [place] [address] C-reactive protein (02/07/2018 9:54 PM CDT) CRP 0.39 0.00 - 0.50 mg/dL [facility] DEPARTMENT OF PATHOLOGY AND GENOMIC MEDICINE Specimen Plasma specimen Performing Organization Address [facility] Phone Number [facility] DEPARTMENT OF PATHOLOGY AND [address] [place] [address] Folate level (02/07/2018 9:54 PM CDT) Folate 18.4 4.8 - 24.2 ng/mL [facility] DEPARTMENT OF PATHOLOGY AND GENOMIC MEDICINE Specimen Serum Performing Organization Address City/[facility]/Zipcode Phone Number [facility] DEPARTMENT OF PATHOLOGY AND [address] [place] [address] [facility] Vitamin B12 level (02/07/2018 9:54 PM CDT) Vitamin B12 687 211 - 946 pg/mL [facility] DEPARTMENT OF PATHOLOGY Comment: AND GENOMIC MEDICINE Significant overlap exists between normal and deficiency states. However, most patients with deficiencies will have Serum B12 <200 pg/mL. Specimen Serum Performing Organization Address [facility] Phone Number [facility] DEPARTMENT OF PATHOLOGY AND [address] MRI Face Wo Contrast (02/07/2018 7:19 PM CDT) Narrative Performed At EXAMINATION:MRI FACE WO CONTRAST [facility] CLINICAL HISTORY:Possible fracture COMPARISON:MRI brain February 07, 2018. CT brain February 07, 2018 FINDINGS: 1.The study is limited to T1 and T2 axial imaging of the face because the patient would not complete the examination. 2.The study demonstrates no finding in addition to those described on the prior studies. Specifically there is no evidence of acute facial injury. Facial fracture cannot be excluded on the basis of this study. 3.There is minimal mucosal thickening in the ethmoid sinus. There is minimal apparent fluid in the mastoid on the left. IMPRESSION: Limited examination demonstrating no acute abnormality. [facility]-[id number] Procedure Note Hm Interface, Radiology Results Incoming - 02/07/2018 7:29 PM CDT EXAMINATION: MRI FACE WO CONTRAST CLINICAL HISTORY: Possible fracture COMPARISON: MRI brain February 07, 2018. CT brain February 07, 2018 FINDINGS: 1. The study is limited to T1 and T2 axial imaging of the face because the patient would not complete the examination. 2. The study demonstrates no finding in addition to those described on the prior studies. Specifically there is no evidence of acute facial injury. Facial fracture cannot be excluded on the basis of this study. 3. There is minimal mucosal thickening in the ethmoid sinus. There is minimal apparent fluid in the mastoid on the left. IMPRESSION: Limited examination demonstrating no acute abnormality. [facility]-[id number] Performing Organization Address [facility] Center[facility] Phone Number [facility] [address] [place] [address] MRA Neck Wo Contrast (02/07/2018 7:19 PM CDT) Narrative Performed At EXAMINATION:MRA NECK WO CONTRASTINCLUDING 3D MIP RECONSTRUCTED [facility] IMAGES. CLINICAL HISTORY:STROKE COMPARISON:None. FINDINGS: 1. There is no significant abnormality demonstrated the common carotid artery bifurcations. There are tortuous cervical internal carotid arteries without stenosis. 2.The right vertebral artery slightly larger than the left. There is no significant abnormality demonstrated in the cervical vertebral arteries. IMPRESSION: No significant abnormality. [facility]-[id number] Procedure Note Interface, Radiology Results Incoming - 02/07/2018 7:25 PM CDT EXAMINATION: MRA NECK WO CONTRASTINCLUDING 3D MIP RECONSTRUCTED IMAGES. CLINICAL HISTORY: STROKE COMPARISON: None. FINDINGS: 1. There is no significant abnormality demonstrated the common carotid artery bifurcations. There are tortuous cervical internal carotid arteries without stenosis. 2. The right vertebral artery slightly larger than the left. There is no significant abnormality demonstrated in the cervical vertebral arteries. IMPRESSION: No significant abnormality. [facility]-[id number] Performing Organization Address [facility] Center[facility] Phone Number [facility] [address] [place] [address] MRA Head Wo Contrast (02/07/2018 6:53 PM CDT) Narrative Performed At EXAMINATION:MRA HEAD WO CONTRASTINCLUDING 3D MIP RECONSTRUCTED [facility] IMAGES. CLINICAL HISTORY:STROKE COMPARISON:CT angiography brain February 07, 2018 FINDINGS: 1. There is a tiny infundibulum at the origin of a moderate size posterior communicating artery on the left. There is otherwise no abnormality in the distal internal carotid arteries. 2.There is a hypoplastic A1 segment on the right. There is otherwise no abnormality demonstrated in the anterior intracranial circulation. 3.The distal left vertebral artery slightly larger than the right. There is mild atherosclerotic luminal irregularity in the proximal aspect posterior cerebral artery on the right and also mild stenosis in the proximal aspect of the posterior cerebral artery on the left side. There is otherwise no abnormality in the posterior circulation. IMPRESSION: Mild atherosclerotic luminal irregularity and luminal narrowing in the posterior cerebral arteries bilaterally. The findings are similar to that seen on the prior study. [facility]-[id number] Procedure Note Interface, Radiology Results Incoming - 02/07/2018 7:15 PM CDT EXAMINATION: MRA HEAD WO CONTRASTINCLUDING 3D MIP RECONSTRUCTED IMAGES. CLINICAL HISTORY: STROKE COMPARISON: CT angiography brain February 07, 2018 FINDINGS: 1. There is a tiny infundibulum at the origin of a moderate size posterior communicating artery on the left. There is otherwise no abnormality in the distal internal carotid arteries. 2. There is a hypoplastic A1 segment on the right. There is otherwise no abnormality demonstrated in the anterior intracranial circulation. 3. The distal left vertebral artery slightly larger than the right. There is mild atherosclerotic luminal irregularity in the proximal aspect posterior cerebral artery on the right and also mild stenosis in the proximal aspect of the posterior cerebral artery on the left side. There is otherwise no abnormality in the posterior circulation. IMPRESSION: Mild atherosclerotic luminal irregularity and luminal narrowing in the posterior cerebral arteries bilaterally. The findings are similar to that seen on the prior study. [facility]-[id number] Performing Organization Address City/State/[facility] Phone Number [facility] [address] [place] [address] C difficile toxin (02/07/2018 6:00 PM CDT) Clostridium difficile No Clostridium difficle toxin present [facility] DEPARTMENT OF toxin Comment: PATHOLOGY AND GENOMIC Specimen Information MEDICINE Specimen Source: Stool Specimen Site: Nonpreserved Specimen Stool - Nonpreserved Performing Organization Address City/State/[facility] Phone Number [facility] DEPARTMENT OF PATHOLOGY AND [address] [place] [address] [employer] MEDICINE CTA Head W Wo Contrast (02/07/2018 2:25 PM CDT) Narrative Performed At EXAMINATION:CT [facility]GIOGRAM HEAD [facility] CLINICAL H[facility]ORY:ataxia COMPARISON:Head CT on 02/07/2018. TECHNIQUE: Head CTA with multiplanar MIP and volumetric rendering after bolus intravenous iodinated contrast administration performed using radiation dose reduction techniques.Technical factors are evaluated and adjusted to ensure appropriate moderation of exposure.Automated dose management technology is applied to adjust radiation exposure while achieving a diagnostic quality image. FINDINGS: There is normal contrast enhancement with no significant stenosis or occlusion along bilateral intracranial ICAs, ACAs, and MCAs. The left A1 ACAs dominant. The anterior communicating artery complex is unremarkable. There is diffuse moderate stenosis of right P1-P3 SENIOR RECEPTIONIST. There is normal contrast enhancement with no significant stenosis or occlusion along bilateral vertebral arteries, basilar artery, cerebellar arteries, and left SENIOR RECEPTIONIST. The vertebral arteries are codominant. The posterior communicating arteries are not well-visualized. There is no evidence of cerebral aneurysm in the proximal lower b[place] of [place]. There is no evidence of perfusion-weighted defect on CTA source images. IMPRESSION: 1. 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 No significant stenosis or occlusion in remaining proximal lower b[place] of [place]. 2. No evidence of perfusion-weighted defect on CTA source images. [facility]-[id number] Procedure Note Interface, Radiology Results Incoming - 02/07/2018 2:39 PM CDT EXAMINATION: CT ANGIOGRAM HEAD W WO CONTRAST CLINICAL HISTORY: ataxia COMPARISON: Head CT on 02/07/2018. TECHNIQUE: Head CTA with multiplanar MIP and volumetric rendering after bolus intravenous iodinated contrast administration performed using radiation dose reduction techniques. Technical factors are evaluated and adjusted to ensure appropriate moderation of exposure. Automated dose management technology is applied to adjust radiation exposure while achieving a diagnostic quality image. FINDINGS: There is normal contrast enhancement with no significant stenosis or occlusion along bilateral intracranial ICAs, ACAs, and MCAs. The left A1 ACAs dominant. The anterior communicating artery complex is unremarkable. There is diffuse moderate stenosis of right P1-P3 SENIOR RECEPTIONIST. There is normal contrast enhancement with no significant stenosis or occlusion along bilateral vertebral arteries, basilar artery, cerebellar arteries, and left SENIOR RECEPTIONIST. The vertebral arteries are codominant. The posterior communicating arteries are not well-visualized. There is no evidence of cerebral aneurysm in the proximal lower brule of [place]. There is no evidence of perfusion-weighted defect on CTA source images. IMPRESSION: 1. 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 No significant stenosis or occlusion in remaining proximal lower brule of [place]. 2. No evidence of perfusion-weighted defect on CTA source images. [facility]-[id number] Performing Organization Address City/State/Zipcode Phone Number [facility] [address] [place] [address] CTA Neck W Wo Contrast (02/07/2018 2:12 PM CDT) Narrative Performed At EXAMINATION:CT ANGIOGRAM NECK W WO CONTRAST [facility] CLINICAL HISTORY:ataxia COMPARISON:None. TECHNIQUE: Neck CTA with multiplanar MIP and volumetric rendering after bolus intravenous iodinated contrast administration performed using radiation dose reduction techniques.Technical factors are evaluated and adjusted to ensure appropriate moderation of exposure.Automated dose management technology is applied to adjust radiation exposure while achieving a diagnostic quality image. FINDINGS: There is normal contrast enhancement of the aortic arch and its proximal branch arteries with no significant stenosis or occlusion. There is minimal calcified atherosclerosis at the left carotid bifurcation extending to the proximal left internal artery. There is normal contrast enhancement with no significant stenosis or occlusion along bilateral common, internal, and external carotid arteries. There is moderate-severe tortuosity with hairpin loop of the proximal left internal carotid artery. There is normal contrast enhancement with no significant stenosis or occlusion along bilateral vertebral arteries. There is moderate tortuosity of the proximal left vertebral artery. The vertebral arteries are codominant. Visualized neck soft tissues including thyroid gland are unremarkable. There is cervical spondylosis mostly at C6-7. Visualized lungs are unremarkable. IMPRESSION: No significant carotid or vertebral artery stenosis. [facility]-[id number] Procedure Note Interface, Radiology Results Incoming - 02/07/2018 2:22 PM CDT EXAMINATION: CT ANGIOGRAM NECK W WO CONTRAST CLINICAL HISTORY: ataxia COMPARISON: None. TECHNIQUE: Neck CTA with multiplanar MIP and volumetric rendering after bolus intravenous iodinated contrast administration performed using radiation dose reduction techniques. Technical factors are evaluated and adjusted to ensure appropriate moderation of exposure. Automated dose management technology is applied to adjust radiation exposure while achieving a diagnostic quality image. FINDINGS: There is normal contrast enhancement of the aortic arch and its proximal branch arteries with no significant stenosis or occlusion. There is minimal calcified atherosclerosis at the left carotid bifurcation extending to the proximal left internal artery. There is normal contrast enhancement with no significant stenosis or occlusion along bilateral common, internal, and external carotid arteries. There is moderate-severe tortuosity with hairpin loop of the proximal left internal carotid artery. There is normal contrast enhancement with no significant stenosis or occlusion along bilateral vertebral arteries. There is moderate tortuosity of the proximal left vertebral artery. The vertebral arteries are codominant. Visualized neck soft tissues including thyroid gland are unremarkable. There is cervical spondylosis mostly at C6-7. Visualized lungs are unremarkable. IMPRESSION: No significant carotid or vertebral artery stenosis. [facility]-[id number] Performing Organization Address City/State/Zipcode Phone Number [facility] [address] [place] [address] CT Head Wo Contrast (02/07/2018 2:11 PM CDT) Narrative Performed At EXAMINATION:CT HEAD WO CONTRAST [facility] CLINICAL HISTORY:ataxia COMPARISON:None. TECHNIQUE: CT imaging was performed with iterative reconstruction technique and/or automated exposure control to reduce radiation dose. Findings: No intracranial hemorrhage, acute transcortical ischemia, extra-axial fluid collections or parenchymal mass lesions. No skull fractures or aggressive bony lesions. Intracranial vascular calcifications. Visualized paranasal sinuses and mastoid air cells are clear. IMPRESSION: No acute intracranial abnormalities. [facility]-[id number] Procedure Note Hm Interface, Radiology Results Incoming - 02/07/2018 2:15 PM CDT EXAMINATION: CT HEAD WO CONTRAST CLINICAL HISTORY: ataxia COMPARISON: None. TECHNIQUE: CT imaging was performed with iterative reconstruction technique and /or automated exposure control to reduce radiation dose. Findings: No intracranial hemorrhage, acute transcortical ischemia, extra-axial fluid collections or parenchymal mass lesions. No skull fractures or aggressive bony lesions. Intracranial vascular calcifications. Visualized paranasal sinuses and mastoid air cells are clear. IMPRESSION: No acute intracranial abnormalities. [facility]-[id number] Performing Organization Address City/[facility]/Zipcode Phone Number [facility] [address] [place] [phone] Troponin (02/07/2018 1:20 PM CDT)Only the most recent of5 resultswithin the time period is included. Troponin <0.30 0.00 - 0.30 ng/mL [facility] DEPARTMENT OF PATHOLOGY Comment: AND [employer] MEDICINE 0.30 - 1.49 ng/mlMay indicate increased risk of acute coronary syndrome. >=1.5 ng/mlConsistent with acute myocardial infarction. The diagnostic value of a single normal or non-diagnostic result is questionable.Serial samples at 2-6 hour intervals are required to rule out acute myocardial injury. Specimen Plasma specimen Performing Organization Address [facility] Phone Number [facility] DEPARTMENT OF PATHOLOGY AND [address] [place] [phone] [employer] MEDICINE Urine culture (02/07/2018 11:31 AM CDT) Urine culture SEE COMMENTComment: Bacteriuria [facility] DEPARTMENT OF PATHOLOGY screen negative. AND GENOMIC MEDICINE Performing Organization Address [facility] Cent[facility]ode Phone Number [facility] DEPARTMENT OF PATHOLOGY AND [address] [place] [phone] [employer] MEDICINE Urinalysis screen and microscopy, with reflex to culture (02/07/2018 11:17 AM CDT) Specimen site Clean catch [facility] DEPARTMENT OF PATHOLOGY AND GENOMIC MEDICINE Color, UA Straw [facility] DEPARTMENT OF PATHOLOGY AND GENOMIC MEDICINE Appearance, UA Clear [facility] DEPARTMENT OF PATHOLOGY AND GENOMIC MEDICINE Specific gravity, UA 1.022 1.001 - 1.035 [facility] DEPARTMENT OF PATHOLOGY AND GENOMIC MEDICINE pH, UA 6.0 5.0 - 8.5 [facility] DEPARTMENT OF PATHOLOGY AND GENOMIC MEDICINE Protein, UA 3+ (A) Negative [facility] DEPARTMENT OF PATHOLOGY AND GENOMIC MEDICINE Glucose, UA 3+ (A) Negative [facility] DEPARTMENT OF PATHOLOGY AND GENOMIC MEDICINE Ketones, UA Negative Negative [facility] DEPARTMENT OF PATHOLOGY AND GENOMIC MEDICINE Bilirubin, UA Negative Negative [facility] DEPARTMENT OF PATHOLOGY AND GENOMIC MEDICINE Blood, UA Small (A) Negative [facility] DEPARTMENT OF PATHOLOGY AND GENOMIC MEDICINE Nitrite, UA Negative Negative [facility] DEPARTMENT OF PATHOLOGY AND GENOMIC MEDICINE Urobilinogen, UA <2.0 <2.0 [facility] DEPARTMENT OF PATHOLOGY AND GENOMIC MEDICINE Leukocyte esterase, UA Negative Negative [facility] DEPARTMENT OF PATHOLOGY AND GENOMIC MEDICINE Epithelial cells, UA <1 /HPF [facility] DEPARTMENT OF PATHOLOGY AND GENOMIC MEDICINE WBC, UA 1 0 - 1 /HPF [facility] DEPARTMENT OF PATHOLOGY AND GENOMIC MEDICINE RBC, UA 5 0 - 5 /HPF [facility] DEPARTMENT OF PATHOLOGY AND GENOMIC MEDICINE Bacteria, UA None seen None seen [facility] DEPARTMENT OF PATHOLOGY AND GENOMIC MEDICINE Yeast, UA None seen [facility] DEPARTMENT OF PATHOLOGY AND GENOMIC MEDICINE Yeast with pseudohyphae, UA None seen [facility] DEPARTMENT OF PATHOLOGY AND GENOMIC MEDICINE Hyaline casts, UA 5 /LPF [facility] DEPARTMENT OF PATHOLOGY AND GENOMIC MEDICINE Specimen Urine Performing Organization Address City/[facility] Phone Number [facility] DEPARTMENT OF PATHOLOGY AND [address] [place] [phone] [facility] MEDICINE Blood culture, aerobic & anaerobic (02/07/2018 11:15 AM CDT)Only the most recent of2 resultswithin the time period is included. Blood culture isolate No growth after 5 days of incubation. [facility] DEPARTMENT OF Comment: PATHOLOGY AND GENOMIC Specimen Information MEDICINE Specimen Source: Blood Specimen Site: Hand, left Specimen Blood - Hand, left Performing Organization Address City/State/Zipcode Phone Number [facility] DEPARTMENT OF PATHOLOGY AND [address] [place] [phone] GENOMIC MEDICINE ECG ED Preliminary Interpretation - NOT AN ORDER (02/07/2018 10:49 AM CDT) Narrative Performed At Derrek Mcgee DO 02/07/20184:02 PM ECG ED Preliminary Interpretation - Not an Order Performed by: DERREK MCGEE Authorized by: DERREK MCGEE ECG reviewed by ED Physician in the absence of a integration software developer: yes Interpretation: Interpretation: abnormal Rate: ECG rate:59 ECG rate assessment: bradycardic Rhythm: Rhythm: sinus bradycardia QRS: QRS axis:Normal QRS intervals:Normal Conduction: Conduction: abnormal Abnormal conduction: complete RBBB ST segments: ST segments:Normal T waves: T waves: normal Beta hydroxybutyrate (02/07/2018 10:30 AM CDT) Beta hydroxybutyrate 0.14 0.02 - 0.27 mmol/L [facility] DEPARTMENT OF PATHOLOGY AND GENOMIC MEDICINE Specimen Serum Performing Organization Address [facility] Phone Number [facility] DEPARTMENT OF PATHOLOGY AND [address] [place] [address] Partial thromboplastin time, activated (02/07/2018 10:30 AM CDT) PTT 24.3 23.0 - 36.0 sec [facility] DEPARTMENT OF PATHOLOGY Comment: AND [facility] PTT therapeutic range for unfractionated heparin is 61.0-112.0 seconds which corresponds to Anti-Xa 0.3-0.7 U/ml. Specimen Blood Performing Organization Address [facility] Phone Number [facility] DEPARTMENT OF PATHOLOGY AND [address] [place] [phone] [facility] Prothrombin time with INR (02/07/2018 10:30 AM CDT) Prothrombin time 13.0 12.0 - 15.0 sec [facility] DEPARTMENT OF PATHOLOGY AND GENOMIC MEDICINE INR 1.0 [facility] DEPARTMENT OF Comment: PATHOLOGY AND GENOMIC The International Normalized Ratio (INR) is a therapeutic MEDICINE monitoring tool for patients who are stable on oral anticoagulant therapy. An INR of 2.0-3.0 is suggested for deep vein thrombosis/pulmonary embolism. Specimen Blood Performing Organization Address City/[facility]ode Phone Number [facility] DEPARTMENT OF PATHOLOGY AND [address] [place] [phone] [facility] B natriuretic peptide (02/07/2018 10:30 AM CDT)Only the most recent of2 resultswithin the time period is included. BNP 108 (H) 0 - 100 pg/mL [facility] DEPARTMENT OF PATHOLOGY AND GENOMIC MEDICINE Specimen Blood Performing Organization Address City/[facility] Centerc[facility] Phone Number [facility] DEPARTMENT OF PATHOLOGY AND [address] [place] [phone] [facility] MEDICINE Comprehensive metabolic panel (02/07/2018 10:30 AM CDT)Only the most recent of2 resultswithin the time period is included. Sodium 135 135 - 148 mEq/L [facility] DEPARTMENT OF PATHOLOGY AND GENOMIC MEDICINE Potassium 4.4 3.5 - 5.0 mEq/L [facility] DEPARTMENT OF PATHOLOGY AND GENOMIC MEDICINE Chloride 98 98 - 112 mEq/L [facility] DEPARTMENT OF PATHOLOGY AND GENOMIC MEDICINE CO2 25 24 - 31 mEq/L [facility] DEPARTMENT OF PATHOLOGY AND GENOMIC MEDICINE Anion gap 12@ANIO 7 - 15 mEq/L [facility] DEPARTMENT OF PATHOLOGY AND GENOMIC MEDICINE BUN 30 (H) 6 - 20 mg/dL [facility] DEPARTMENT OF PATHOLOGY AND GENOMIC MEDICINE Creatinine 1.80 (H) 0.70 - 1.20 mg/dL [facility] DEPARTMENT OF PATHOLOGY AND GENOMIC MEDICINE Glucose 491 (HH) 65 - 99 mg/dL [facility] DEPARTMENT OF PATHOLOGY AND GENOMIC MEDICINE Calcium 9.3 8.3 - 10.2 mg/dL [facility] DEPARTMENT OF PATHOLOGY AND GENOMIC MEDICINE Protein 6.4 6.3 - 8.3 g/dL [facility] DEPARTMENT OF Comment: PATHOLOGY AND GENOMIC 4.6-7.0 g/dL MEDICINE 1 week 4.4-7.6 g/dL 7 months-1year5.1-7.3 g/dL 1-2 years5.6-7.5 g/dL >3 years6.0-8.0 g/dL 18-150 6.3-8.3 g/dL Albumin 2.9 (L) 3.5 - 5.0 g/dL [facility] DEPARTMENT OF PATHOLOGY AND GENOMIC MEDICINE A/G ratio 0.8 0.7 - 3.8 [facility] DEPARTMENT OF PATHOLOGY AND GENOMIC MEDICINE Alkaline phosphatase 102 40 - 129 U/L [facility] DEPARTMENT OF PATHOLOGY AND GENOMIC MEDICINE AST 20 10 - 50 U/L [facility] DEPARTMENT OF PATHOLOGY AND GENOMIC MEDICINE ALT 29 5 - 50 U/L [facility] DEPARTMENT OF PATHOLOGY AND GENOMIC MEDICINE Total bilirubin 0.4 0.0 - 1.2 mg/dL [facility] DEPARTMENT OF PATHOLOGY AND GENOMIC MEDICINE Specimen Plasma specimen Performing Organization Address City/State/Zipcode Phone Number [facility] DEPARTMENT OF PATHOLOGY AND [address] [place] [address] [facility] MEDIC[facility] ECG 12 lead (02/07/2018 10:01 AM CDT)Only the most recent of2 resultswithin the time period is included. Ventricular rate 59 [facility] Atrial rate 59 [facility] OH interval 144 [facility] QRSD interval 136 [facility] QT interval 456 [facility] QTC interval 451 [facility] P axis 1 20 [facility] QRS axis 1 74 [facility] T wave axis 8 [facility] EKG impression Sinus bradycardia-Right bundle branch [facility] block-Abnormal ECG-In automated comparison with ECG of 11-JUL-2017 04:14,-No significant change was found- Performing Organization Address City/State/Zipcode Phone Number [facility] MUSE [address] [place] [address] Echocardiogram complete w contrast and 3D if needed (07/12/2017 9:04 AM CDT) Narrative Performed At [facility] Echocardiography Report [address] [place] [address] Pat.Name:PAOLA KWONG Pat.ID:[id number] .Date: 07/12/2017 Refer.MD:MILTON ELLINGTON MD Exam Time: 7:25:00 AMStudy Type:Routine Echo Height:67inWeight: 188lb BSA: 1.97 m2 DOBAge:1965,51Y Sex: MALEBP:135/74 Sonogrphr: Suad Greco RDCS, RVT Pat. Stat.:Inpatient Room:[address] Study Status:Final Echo Event ID:[id number] Order ID:[id number] Reason for Study:Chest pain, SOB History / Clinical:Chest Pain, Diabetes, Hyperlipidemia, Hypertension, Cirrhosis, [place], Infectious Viral Hepatitis Procedures:2D Echo, Colorflow Doppler [...] PA systolic pressure. MEASUREMENTS: 2D Parasternal Long [place] LVOT 2.1 cmLA Ds4.5 cm LVIDd4 cmIndex2 cm/m Ao An2 cm LVIDs2.3 cmAo Rtd 3.3 cm Index1.7 cm/m LV%fs 43.3 % LV Uvvu553.1 g(122-174) IVSd 1.3 cmLVM Index 98.5 g/m2 LVPWd1.3 cmRWT0.7 LA Sng Plane LA Area 23.8 cm2(8.8-23.4) LA Vol77.6 ml Index39.4 ml/m LA LngAx 6 cm DOPPLER LVOT Stroke Vol LVOT 2.1 cmLVOT CO4.3 l/min LVOT TVI19.2 cmLVOT CI2.2 l/m/m2 LVOT Tm351 ihdyMA39 bpm LVOT SV 66.6 ml Signed 07/12/2017 02:24 PM Zain Carmona M.D. Procedure Note Interface, Radiology Results In - 07/12/2017 2:24 PM CDT Echocardiography Report [address] [address], [place] [address] Pat.Name: PAOLA KWONG Pat.ID: [id number] .Date: 07/12/2017 Refer.MD: MILTON ELLIGNTON MD Exam Time: 7:25:00 AM Study Type:Routine Echo Height: 67in Weight: 188lb BSA: 1.97 m2 Age: 6 1965,51Y Sex: MALE BP: 135/74 Sonogrphr: Suad Greco RDCS, RVT Pat. Stat.:Inpatient Room: [address] Study Status:Final Echo Event ID:[id number] Order ID: [id number] Reason for Study:Chest pain, SOB History / Clinical:Chest Pain, Diabetes, Hyperlipidemia, Hypertension, Cirrhosis, [place], Infectious Viral Hepatitis Procedures:2D Echo, Colorflow Doppler [...] normal. AO: Aortic root diameter is normal. MACOH: No pericardial effusion. AV: No structural AV abnormalities noted. MV: No structural MV abnormalities noted. Mild mitral regurgitation. PV: No structural PV abnormalities noted. TV: No structural TV abnormalities noted. Jose: Diastolic dysfunction Grade I (Mild): Impaired relaxation with normal LV filling pressures. Other: Insufficient TR jet to estimate PA systolic pressure. MEASUREMENTS: 2D Parasternal Long [place] LVOT 2.1 cm LA Ds 4.5 cm [...] PM Zain Carmona M.D. Performing Organization Address City/State/Zipcode Phone Number [facility] [address] [place] [address] Estimated GFR (07/12/2017 4:00 AM CDT)Only the most recent of2 resultswithin the time period is included. GFR Non Af Amer 54 (A) mL/min/1.73 m2 [facility] DEPARTMENT OF PATHOLOGY AND GENOMIC MEDICINE GFR Af Amer 65 mL/min/1.73 m2 [facility] DEPARTMENT OF Comment: PATHOLOGY AND GENOMIC Chronic [...] Americans. Specimen Plasma specimen Performing Organization Address [facility] Centercode Phone Number [facility] DEPARTMENT OF PATHOLOGY AND [address] [place] [address] GENOMIC MEDICINE Cv ecg exercise stress (no imaging) (07/11/2017 2:44 PM CDT) Resting HR 77 [facility] MUSE Resting BP 166 [facility] MUSE Peak MET Achieved 1.0 [facility] MUSE Protocol Name JESENIAO [facility] MUSE Time in Exercise Phase 00:01:00 [facility] M[facility] Max Systolic BP 178 [facility] M[facility] Max Diastolic BP 95 [facility] Max Heart Rate 85 [facility] Max Predicted Heart Rate 171 [facility] MUSE Target HR Formula (220 - Age)*100% [facility] MUSE Test Indication chest pain [facility] MUSE Stress Test Impression Waveform interpreted in report [facility] MUSE associated with image study. No interpretation is provided as part of this Stress ECG report.-Electronically Signed By Isabelle BOSS, Sreedhar Brown ([id number]), editorial writer Kailey Porars ([id number]) on 07/11/2017 2:32:43 PM Target HR 145.35 bpm [facility] MUSE Performing Organization Address [facility] Phone Number [facility] MUSE [address] [place] [address] Myocardial perfusion (07/11/2017 2:44 PM CDT) Narrative Performed At [facility] Nuclear Cardiology and Cardiac CT [address] [place] [address] Myocardial Perfusion Imaging Report Stress ECG tracings are available in [facility], [place] and [facility] All ECG interpretations are included in this report Pat.Name:PAOLA KWONG Pat.ID:[id number] St.Date: 07/11/2017 Refer.MD:MILTON ELLINGTON MD Exam Time: 12:58:00 PM Study Type:Myocardial Perfusion Imaging Height:66inBSA: 1.95 m2 DOBAge:1965,51YSex: MALE BP:162/82HR: 77 bpm HCT: 29.3 % Nuclear Tech:NIDHI Spencer/Leatha TERRELL,[facility] Nuclear Event ID:[id number] Order ID:[id number] History / Clinical:Coronary artery disease, Diabetes, Hyperlipidemia, [...] PM CDT Nuclear Cardiology and Cardiac CT [address] [place] [address] Myocardial Perfusion Imaging Report Stress ECG tracings are available in [facility], [place] and [facility] All ECG interpretations are included in this report Pat.Name: PAOLA KWONG Pat.ID: [id number] .Date: 07/11/2017 Refer.MD: MILTON ELLINGTON MD Exam Time: 12:58:00 PM Study Type:Myocardial Perfusion Imaging Height: 66in BSA: 1.95 m2 Age: 6 1965,51Y Sex: MALE BP: 162/82 HR: 77 bpm HCT: 29.3 % Nuclear Tech:NIDHI Spencer/Leatha MOURAMT,[facility] Nuclear Event ID:[id number] Order ID: [id number] History / Clinical:Coronary artery disease, Diabetes, Hyperlipidemia, Hypertension, S/P PCI 07/2007, Liver cirrhosis/Hepatitis C Procedures:Stress only Race: C Risk Factors:Angina, Diabetes, Cardiovascular Disease, Hyperlipidemia, Hypertension Clinical Symptoms:Regadenoson Surgery: Serum K+ Date, 3.7 on 07/11/16/, Troponin I Date, 1)NEG on 07/11/17/ 2)/ 3)/, BUN/Creatinine Date, 231.4 on 07/11/17/ Medications:VICKI/ARB, Atenolol, Beta ramy, Lipitor, [...] MD Performing Organization Address City/State/Zipcode Phone Number [facility] [address] [place] [address] T3 (07/11/2017 2:43 AM CDT) T3 89 80 - 200 ng/dL [facility] DEPARTMENT OF PATHOLOGY AND GENOMIC MEDICINE Specimen Plasma specimen Performing Organization Address City/State/Zipcode Phone Number [facility] DEPARTMENT OF PATHOLOGY AND [address] [place] [address] [employer] MEDICINE after 03/11/2017 Advance Directives Patient has advance care planning documents, and code status on file. For more information, please contact:Lefty Johnson[address] [place] [address] Code Status Date Activated Date Inactivated Comments Full Code 02/08/2018 12:15 PM 02/16/2018 8:08 PM Code Status decision reached by: Patient Full Code 07/11/2017 8:58 AM 07/12/2017 5:04 PM Code Status decision reached by: Patient Full Code 12/01/2016 10:48 PM 12/03/2016 11:22 PM Code Status decision reached by: Patient
[2018-03-12] MEDS ORDERED: FUROSEMIDE 40 MG/4 ML VIAL ONE (14:40)
[2018-03-12 14:49] LABS: Absolute Lymphocytes (CBC) 1.8 K/uL (0.7-4.9); Absolute Monocytes 0.4 K/uL (0.1-1.3); Absolute Neutrophil 3.2 K/uL (1.8-8.0); Basophils % 1.3 % (0-1.3); Eosinophils % 7.6 % (0-4.4); Lymphocytes % 29.9 % (15.3-44.8); MCH 31.9 pg (27.0-35.0); MCV 90.7 fL (80-100); MPV 9.9 fL (7.6-11.3); Monocytes % 6.3 % (3.3-12.3); RBC Red Blood Cell Count 3.75 M/uL (4.33-5.43)
--- NOTE | 2018-03-12 14:50 | RAD REPORT ---
EXAM DESCRIPTION: RAD - Chest Single View - 03/12/2018 2:40 pm CLINICAL HISTORY: SOB Chest pain. COMPARISON: Chest Single View dated 01/25/2018; Chest Single View dated 12/01/2016 FINDINGS: Portable technique limits examination quality. Mild interstitial pulmonary edema suspected. The heart is normal in size. No displaced fractures. IMPRESSION: Mild interstitial pulmonary edema.
[2018-03-12 14:51] LABS: Protime INR 0.97
[2018-03-12 14:59] LABS: ALT/SGPT 24 U/L (12-78); AST/SGOT 24 U/L (15-37); Albumin 2.7 g/dL (3.4-5.0); Alkaline Phosphatase 89 U/L (45-117); BUN Blood Urea Nitrogen 36 mg/dL (7-18); Bicarbonate 26 mmol/L (21-32); Bilirubin Direct 0.1 mg/dL (0-0.2); Bilirubin Total 0.4 mg/dL (0.2-1.0); Glucose Level 310 mg/dL (74-106); Magnesium 2.1 mg/dL (1.8-2.4); NT PRO-BNP 1172 pg/mL (<125); Potassium 4.6 mmol/L (3.5-5.1); Protein, Total 6.3 g/dL (6.4-8.2); Sodium Level 142 mmol/L (136-145); Troponin (Emerg Dept Use Only) < 0.02 ng/mL (0.0-0.045)
--- NOTE | 2018-03-12 15:05 | RAD REPORT ---
EXAM DESCRIPTION: US - Extrem Venous W Compress John - 03/12/2018 2:54 pm CLINICAL HISTORY: lower leg swelling Bilateral leg edema and swelling. COMPARISON: No comparisons TECHNIQUE: Real-time sonographic interrogation of the left and right lower extremity deep venous sys tems was performed. FINDINGS: Normal compressibility, flow augmentation, phasic flow and spontaneous flow is identified in both the left and right lower extremity deep venous systems. IMPRESSION: No sonographic evidence of left or right lower extremity deep venous thrombosis.
[2018-03-12] MEDS ORDERED: FENTANYL CITR 100 MCG/2 ML ONE (16:29)
[2018-03-12] MEDS ORDERED: ONDANSETRON 4 MG/2 ML VIAL ONE (16:29)
--- NOTE | 2018-03-12 16:36 | RAD REPORT ---
EXAM DESCRIPTION: CT - Stone Protocol - 03/12/2018 4:14 pm CLINICAL HISTORY: Abdominal pain. COMPARISON: 2014 TECHNIQUE: Computed axial tomography of the abdomen pelvis was obtained without oral or IV contrast. Lack of IV and oral contrast limits evaluation of solid organs, bowel, and vessels. Coronal reformat tni images were obtained and reviewed. All CT scans are performed using dose optimization technique as appropriate and may include automated exposure control or mA/KV adjustment according to patient size. FINDINGS: Small bilateral pleural effusions A renal calculus is not seen. An ureteral calculus is not noted. A bladder calculus is not present. Liver has mildly nodular contour with prominence of the caudate and left lobes. The gallbladder has b een removed Spleen, pancreas and adrenals appear grossly normal There is no evidence of diverticulitis. The appendix appears normal Diffuse edema is present within the subcutaneous tissues. Small umbilical hernia IMPRESSION: Negative for a genitourinary calculus Cirrhosis Diffuse edema within subcutaneous tissues
--- NOTE | 2018-03-12 16:46 | RAD REPORT ---
EXAM DESCRIPTION: CT - Head Brain Wo Cont - 03/12/2018 4:14 pm CLINICAL HISTORY: Headache COMPARISON: December 2017 TECHNIQUE: Computed axial tomography of the head was obtained. IV contrast was not requested. All CT scans are performed using dose optimization technique as appropriate and may include automated exposure control or mA/KV adjustment according to patient size. FINDINGS: An intracranial bleed is not seen . The ventricles are normal in caliber. No extra-axial fluid collection is noted. The left cavernous sinus is a little bit more prominent on the right Fluid within the sinuses/ mastoids is not seen. IMPRESSION: The left cavernous sinus is a little bit more prominent than the right. This probably is not significant. However if the patient has clinical symptoms to suggest cavernous sinus pathology a n MRI with contrast would be recommended
--- NOTE | 2018-03-12 17:10 | EKG ---
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
--- NOTE | 2018-03-12 17:42 | EDPHYS ---
Physician Documentation [facility] Name: Wero Kwong Sr Age: 52 yrs Sex: Male : 1965 Arrival Date: 03/12/2018 Time: 13:17 Bed 19 Private MD: ED Physician Osito Rehman HPI: 03/12 14:18 This 52 yrs old Male presents to ER via EMS with complaints of Headache. jmm 14:18 Headache, abdominal pain, leg pain. Onset: The symptoms/episode began/occurred jmm gradually, 3 week(s) ago. This is a 52 year old male with a history of CAD, DM, HLP, HTN, that presents to the ED with 3 weeks of abdominal pain, abdominal swelling, leg swelling and right sided headache. Patient was discharged from [facility] after a CVA with affected the right side of his face and partial vision in the right eye. Patient complains of increased leg pain and swelling with abdominal swelling. Patient states he is currently taking lasix 40 mg daily. Patient states he awoke this morning short of breath. . Historical: - Allergies: 13:25 Codeine; hj - Home Meds: 13:25 atenolol 50 mg Oral tab 1 tab 2 times per day [Active]; gabapentin 600 mg Oral tab 1 hj tab 4 times a day [Active]; simvastatin 80 mg Oral tab daily [Active]; Plavix 75 mg Oral tab 1 tab once daily [Active]; lisinopril 20 mg Oral tab 1 tab once daily [Active]; furosemide 40 mg Oral tab 1 tab 2 times per day [Active]; aspirin 81 mg Oral TbEC 1 tab once daily [Active]; citalopram 20 mg tab 1 tab once daily [Active]; glyburide-metformin 5-500 mg Oral tab 2 tabs 2 times per day [Active]; - PMHx: 13:25 CAD; Diabetes - NIDDM; High Cholesterol; Hypertension; Myocardial infarction; hj neuropathy; CVA; - PSHx: 13:25 Heart stents; Knee surgery; Cholecystectomy; hj - Immunization history:: Adult Immunizations up to date. - Social history:: Smoking status: Patient uses tobacco products, Patient/guardian denies using alcohol. - Ebola Screening: : Patient negative for fever greater than or equal to 101.5 degrees Fahrenheit, and additional compatible Ebola Virus Disease symptoms Patient denies exposure to infectious person Patient denies travel to an Ebola-affected area in the 21 days before illness onset. ROS: 14:18 Constitutional: Negative for fever, chills, and weight loss, Cardiovascular: Negative jmm for chest pain, palpitations, and edema. 14:18 Respiratory: Positive for shortness of breath. 14:18 Abdomen/GI: Positive for abdominal pain. jmm 14:18 Neuro: Positive for headache. 14:18 All other systems are negative. jmm Exam: 14:18 Constitutional: This is a well developed, well nourished patient who is awake, alert, jmm and in no acute distress. Head/Face: atraumatic. 14:18 Neck: Trachea midline, Supple Chest/axilla: Normal chest wall appearance and motion. 14:18 Eyes: Extraocular movements: intact throughout. 14:18 Cardiovascular: Rate: normal, Rhythm: regular. 14:18 Respiratory: the patient does not display signs of respiratory distress, Respirations: normal, Breath sounds: are clear throughout. 14:18 Abdomen/GI: Inspection: distension, that is mild, Bowel sounds: normal, Palpation: soft, mild abdominal tenderness, in all quadrants. 14:18 Back: ROM is normal. 14:18 Musculoskeletal/extremity: ROM: intact in all extremities. 14:18 Musculoskeletal/extremity: edema noted bilaterally, full dorsalis pulse bilaterally, NVI. 14:18 Skin: Appearance: Color: normal in color. 14:18 Neuro: Orientation: is normal, Mentation: is normal, Memory: is normal, Gait: is steady. 14:18 Psych: Behavior/mood is pleasant, cooperative. Vital Signs: 13:27 BP 155 / 77; Pulse 64; Resp 18; Temp 98.1(O); Pulse Ox 96% on R/A; Weight 94.35 kg; hj Height 5 ft. 7 in. (170.18 cm); Pain 8/10; 14:36 BP 159 / 82; Pulse 65; Resp 18; Pulse Ox 100% on R/A; hj 15:17 BP 152 / 80; Pulse 66; Resp 18; Pulse Ox 100% on R/A; hj 16:27 BP 179 / 94; Pulse 65; Resp 18; Pulse Ox 96% on R/A; hj 16:56 BP 184 / 93; Pulse 65; Resp 18; Pulse Ox 97% on R/A; 18:14 BP 174 / 83; Pulse 66; Resp 18; Pulse Ox 100% on R/A; 20:11 BP 144 / 76; Pulse 63; Resp 16; Temp 98.3; Pulse Ox 97% on R/A; ak1 13:27 Body Mass Index 32.58 (94.35 kg, 170.18 cm) MDM: 14:18 Patient medically screened. [facility] 17:40 Data reviewed: vital signs, nurses notes, lab test result(s), radiologic studies, plain [facility] films. ED course: I discussed the patient with Dr. Davis whom accepted admission. . 18:24 Data interpreted: Pulse oximetry: on room air is 100 %. Interpretation: normal. [facility] Counseling: I had a detailed discussion with the patient and/or guardian regarding: the historical points, exam findings, and any diagnostic results supporting the discharge/admit diagnosis, lab results, radiology results, the need for further work-up and treatment in the hospital. 03/12 14:19 Order name: Basic Metabolic Panel; Complete Time: 15:04 [facility] 03/12 14:19 Order name: CBC with Diff; Complete Time: 14:53 [facility] 03/12 14:19 Order name: LFT's; Complete Time: 15:04 [facility] 03/12 14:19 Order name: Magnesium; Complete Time: 15:04 [facility] 03/12 14:19 Order name: NT PRO-BNP; Complete Time: 15:04 [facility] 03/12 14:19 Order name: PT-INR; Complete Time: 14:56 [facility] 03/12 14:19 Order name: Troponin (emerg Dept Use Only); Complete Time: 15:04 [facility] 03/12 14:19 Order name: XRAY Chest (1 view); Complete Time: 14:53 [facility] 03/12 14:19 Order name: US Extremity Venous W Compression John; Complete Time: 15:17 [facility] 03/12 15:59 Order name: CT Head Brain wo Cont; Complete Time: 16:49 [facility] 03/12 16:02 Order name: CT Stone Protocol; Complete Time: 16:44 [facility] 03/12 14:19 Order name: EKG; Complete Time: 14:20 [facility] 03/12 14:19 Order name: Cardiac monitoring; Complete Time: 14:21 [facility] 03/12 14:19 Order name: EKG - Nurse/Tech; Complete Time: 14:21 [facility] 03/12 14:19 Order name: IV Saline Lock; Complete Time: 14:34 [facility] 03/12 14:19 Order name: Labs collected and sent; Complete Time: 14:34 [facility] 03/12 14:19 Order name: O2 Per Protocol; Complete Time: 14:21 [facility] 03/12 14:19 Order name: O2 Sat Monitoring; Complete Time: 14: [facility] Administered Medications: 14:31 Drug: Lasix 40 mg Route: IVP; Site: right forearm; hj 14:34 Follow up: Response: No adverse reaction 16:25 Drug: fentaNYL (PF) 25 mcg Route: IVP; Site: right forearm; hj 16:26 Follow up: Response: No adverse reaction 16:26 Drug: Zofran 4 mg Route: IVP; Site: right forearm; hj 16:27 Follow up: Response: No adverse reaction Point of Care Testing: Blood Glucose: 16:56 Blood Glucose: 233 mg/dL; Ranges: Critical Glucose Levels:Adult <50 mg/dl or >400 mg/dl <40 mg/dl or >180 mg/dl Disposition: 03/12/18 17:41 Hospitalization ordered by Lisbeth Davis for Observation. Preliminary diagnosis is Acute combined systolic (congestive) and diastolic (congestive) heart failure. - Bed requested for Telemetry/MedSurg (observation). - Status is Observation. ak1 - Condition is Stable. - Problem is new. - Symptoms are unchanged. UTI on Admission? No Signatures: Dispatcher [employer] EDNE Ezekiel Cagle PA PA Mariah Davis, RN RN ak1 Soham Anders RN RN Barbara Otero Corrections: (The following items were deleted from the chart) 18:12 17:41 Hospitalization Ordered by Lisbeth Davis MD for Observation. Preliminary diagnosis is Acute combined systolic (congestive) and diastolic (congestive) heart failure. Bed requested for Telemetry/MedSurg (observation). Status is Observation. Condition is Stable. Problem is new. Symptoms are unchanged. UTI on Admission? No. [facility] 18:20 14:18 This is a 52 year old male with a history of CAD, DM, HLP, HTN, that presents to [facility] the ED with 3 weeks of abdominal pain, abdominal swelling, leg swelling and right sided headache. Patient was discharged from [facility] after a CVA with affected the right side of his face and partial vision in the right eye. Patient complains of increased leg pain and swelling with abdominal swelling. Patient states he is currently taking lasix 40 mg daily. . [facility] 18:21 14:18 This is a 52 year old male with a history of CAD, DM, HLP, HTN, that presents to [facility] the ED with 3 weeks of abdominal pain, abdominal swelling, leg swelling and right sided headache. Patient was discharged from [facility] after a CVA with affected the right side of his face and partial vision in the right eye. Patient complains of increased leg pain and swelling with abdominal swelling. Patient states he is currently taking lasix 40 mg daily. Patient states he awoke this morning short of breath which is why h. [facility] 22:01 18:12 03/12/2018 17:41 Hospitalization Ordered by Lisbeth Davis MD for Observation. ak1 Preliminary diagnosis is Acute combined systolic (congestive) and diastolic (congestive) heart failure. Bed requested for Telemetry/MedSurg (observation). Status is Observation. Condition is Stable. Problem is new. Symptoms are unchanged. UTI on Admission? No. gm
--- NOTE | 2018-03-12 17:42 | ER ---
Nurse's Notes [facility] Name: Wero Kwong Sr Age: 52 yrs Sex: Male : 1965 Arrival Date: 03/12/2018 Time: 13:17 Bed 19 Private MD: Diagnosis: Acute combined systolic (congestive) and diastolic (congestive) heart failure Presentation: 03/12 13:18 Presenting complaint: EMS states: when pt woke up this AM was complaining of headache hj and R eye pain; was D/C'd from [facility] 3 weeks ago; denies N/V; denies F/C; no no complaints of deficits; reports blood in R ear;. Transition of care: patient was not received from another setting of care. Onset of symptoms was March 12, 2018. Risk Assessment: Do you want to hurt yourself or someone else? Patient reports no desire to harm self or others. Initial Sepsis Screen: Does the patient meet any 2 criteria? No. Patient's initial sepsis screen is negative. Does the patient have a suspected source of infection? No. Patient's initial sepsis screen is negative. Care prior to arrival: None. 13:18 Method Of Arrival: EMS: [facility] 13:18 Acuity: [facility] [place] 3 hj Triage Assessment: 13:25 Headache History: Denies prior headaches. General: Appears in no apparent distress. hj uncomfortable, Behavior is calm, cooperative, appropriate for age. Pain: Complains of pain in head Pain Pain began suddenly, Also complains of nausea. 13:26 Neuro: Level of Consciousness is awake, alert, obeys commands, Oriented to person, hj place, time, situation, Appropriate for age. Historical: - Allergies: 13:25 Codeine; hj - Home Meds: 13:25 atenolol 50 mg Oral tab 1 tab 2 times per day [Active]; gabapentin 600 mg Oral tab 1 hj tab 4 times a day [Active]; simvastatin 80 mg Oral tab daily [Active]; Plavix 75 mg Oral tab 1 tab once daily [Active]; lisinopril 20 mg Oral tab 1 tab once daily [Active]; furosemide 40 mg Oral tab 1 tab 2 times per day [Active]; aspirin 81 mg Oral TbEC 1 tab once daily [Active]; citalopram 20 mg tab 1 tab once daily [Active]; glyburide-metformin 5-500 mg Oral tab 2 tabs 2 times per day [Active]; - PMHx: 13:25 CAD; Diabetes - NIDDM; High Cholesterol; Hypertension; Myocardial infarction; hj neuropathy; CVA; - PSHx: 13:25 Heart stents; Knee surgery; Cholecystectomy; hj - Immunization history:: Adult Immunizations up to date. - Social history:: Smoking status: Patient uses tobacco products, Patient/guardian denies using alcohol. - Ebola Screening: : Patient negative for fever greater than or equal to 101.5 degrees Fahrenheit, and additional compatible Ebola Virus Disease symptoms Patient denies exposure to infectious person Patient denies travel to an Ebola-affected area in the 21 days before illness onset. Screenin:26 Abuse screen: Denies threats or abuse. Denies injuries from another. Nutritional hj screening: No deficits noted. Tuberculosis screening: No symptoms or risk factors identified. Fall Risk None identified. Assessment: 13:22 General: Appears in no apparent distress. uncomfortable, Behavior is calm, cooperative, hj appropriate for age. Pain: Complains of pain in head. Neuro: Level of Consciousness is awake, alert, obeys commands, Oriented to person, place, time, situation, Appropriate for age. Cardiovascular: Capillary refill < 3 seconds Patient's skin is warm and dry. Respiratory: Airway is patent Respiratory effort is even, unlabored, Respiratory pattern is regular, symmetrical. GI: No signs and/or symptoms were reported involving the gastrointestinal system. : No signs and/or symptoms were reported regarding the genitourinary system. EENT: No signs and/or symptoms were reported regarding the EENT system. Derm: No signs and/or symptoms reported regarding the dermatologic system. Musculoskeletal: No signs and/or symptoms reported regarding the musculoskeletal system. 13:52 Reassessment: awaiting provider in room;. hj 14:50 Reassessment: Patient and/or family updated on plan of care and expected duration. Pain hj level reassessed. Patient is alert, oriented x 3, equal unlabored respirations, skin warm/dry/pink. awaiting results and POC; wheeled to Us;. 16:55 Reassessment: Patient and/or family updated on plan of care and expected duration. Pain hj level reassessed. Patient is alert, oriented x 3, equal unlabored respirations, skin warm/dry/pink. pt was asking for food, stating hes diabetic and he doesn't want his sugar to be low; took BGL, provider notified;. Vital Signs: 13:27 BP 155 / 77; Pulse 64; Resp 18; Temp 98.1(O); Pulse Ox 96% on R/A; Weight 94.35 kg; hj Height 5 ft. 7 in. (170.18 cm); Pain 8/10; 14:36 BP 159 / 82; Pulse 65; Resp 18; Pulse Ox 100% on R/A; hj 15:17 BP 152 / 80; Pulse 66; Resp 18; Pulse Ox 100% on R/A; hj 16:27 BP 179 / 94; Pulse 65; Resp 18; Pulse Ox 96% on R/A; hj 16:56 BP 184 / 93; Pulse 65; Resp 18; Pulse Ox 97% on R/A; hj 18:14 BP 174 / 83; Pulse 66; Resp 18; Pulse Ox 100% on R/A; hj 20:11 BP 144 / 76; Pulse 63; Resp 16; Temp 98.3; Pulse Ox 97% on R/A; ak1 13:27 Body Mass Index 32.58 (94.35 kg, 170.18 cm) ED Course: 13:17 Patient arrived in ED. 13:18 Soham Anders, HAYLEE is Primary Nurse. 13:22 Ezekiel Cagle PA is PHCP. [facility] 13:22 Osito Rehman MD is Attending Physician. [facility] 13:22 Triage completed. 13:26 Arm band placed on right wrist. hj 13:27 Patient has correct armband on for positive identification. Bed in low position. Call light in reach. Side rails up X 1. 14:00 EKG done, by photographic technician. reviewed by Ezekiel GONZALES. sm3 14:20 Initial lab(s) drawn, by me, sent to lab. Inserted saline lock: 22 gauge in right forearm, using aseptic technique. Blood collected. 14:40 XRAY Chest (1 view) In Process Unspecified. EDMS 14:40 X-ray completed. Portable x-ray completed in exam room. Patient tolerated procedure jb2 well. 14:51 US Extremity Venous W Compression John In Process Unspecified. EDMS 16:[address] jg6 16:15 CT Head Brain wo Cont In Process Unspecified. EDMS 16:15 CT Stone Protocol In Process Unspecified. EDMS 17:41 Lisbeth Davis MD is Hospitalizing Provider. [facility] 20:12 Patient admitted, IV remains in place. ak1 20:13 No provider procedures requiring assistance completed. ak1 Administered Medications: 14:31 Drug: Lasix 40 mg Route: IVP; Site: right forearm; hj 14:34 Follow up: Response: No adverse reaction hj 16:25 Drug: fentaNYL (PF) 25 mcg Route: IVP; Site: right forearm; hj 16:26 Follow up: Response: No adverse reaction hj 16:26 Drug: Zofran 4 mg Route: IVP; Site: right forearm; hj 16:27 Follow up: Response: No adverse reaction hj Point of Care Testing: Blood Glucose: 16:56 Blood Glucose: 233 mg/dL; hj Ranges: Outcome: 17:41 Decision to Hospitalize by Provider. [facility] 20:13 Condition: good ak1 20:13 Instructed on the need for admit. 22:01 Patient left the ED. ak1 Signatures: Dispatcher [employer] EDMS Ezekiel Cagle PA PA jmm Buechter, Jesse jb2 Mariah Srinivasan RN RN ak1 Soham Anders, HAYLEE RN Stephenie Bruce 3 Adriana Mathias [id number]
--- NOTE | 2018-03-12 20:59 | P.HP ---
Certification for Inpatient Patient admitted to: Observation With expected LOS: <2 Midnights Practitioner: I am a practitioner with admitting privileges, knowledge of patient current condition, hospital course, and medical plan of care. Services: Services provided to patient in accordance with Admission requirements found in Title 42 Section 412.3 of the Code of Federal Regulations Patient History Date of Service: 03/12/18 Reason for admission: Acute on chronic diastolic CHF History of Present Illness: Mr. Kwong 52-year-old male with history of CAD status post stent placement, diabetes mellitus types 2, chronic diastolic CHF in [facility] about a month ago showing normal LV function with EF about 63%, who came to ER complaining of shortness of breath. He symptoms started about 3 weeks ago after he was discharged from [facility] where he was admitted for 1 week due to acute stroke. When he was home he noticed progressive shortness of breath getting worse with ambulation. He also was complaining of progressive lower extremity swelling and increasing abdominal girth. He denied any cough, fever or chills. Lab work remarkable for normal WBC count, creatinine 1.7, troponin I negative, normal liver function tests, elevated proBNP. chest-x-ray shows bilateral mild pulmonary edema. Bilateral Doppler ultrasound ruled out DVT. Abdominal CT scan consistent with liver cirrhosis and subcutaneous edema. Allergies codeine Allergy (Unverified 07/26/14 20:48) Unknown Home medications list reviewed: Yes - Past Medical/Surgical History -: CVA -: Liver cirrhosis -: CAD -: Diabetes mellitus types 2 -: Stent placement - Family History Family History: Reviewed- Non-Contributory - Social History Smoking Status: Current every day smoker Counseled patient to stop smoking for: less than 10 minutes Alcohol use: No CD- Drugs: No Place of Residence: Home Review of Systems 10-point ROS is otherwise unremarkable Physical Examination - Physical Exam General: Alert, In no apparent distress HEENT: Atraumatic, PERRLA, Mucous membr. moist/pink, EOMI, Sclerae nonicteric Neck: Supple, 2+ carotid pulse no bruit, No LAD, Without JVD or thyroid abnormality Respiratory: Normal air movement, Crackles/rales (Bibasilar rales) Cardiovascular: Regular rate/rhythm, Normal S1 S2 Gastrointestinal: Normal bowel sounds, No tenderness Musculoskeletal: No tenderness, Swelling (Bilateral lower extremity 1+) Integumentary: No rashes Neurological: Normal speech, Normal strength at 5/5 x4 extr, Normal tone, Normal affect Lymphatics: No axilla or inguinal lymphadenopathy - Studies Laboratory Data (last 24 hrs) 03/12/18 14:20: PT 11.4, INR 0.97 03/12/18 14:20: WBC 5.9, Hgb 12.0 L, Hct 34.0 L, Plt Count 171 03/12/18 14:20: Sodium 142, Potassium 4.6, BUN 36 H, Creatinine 1.70 H, Glucose 310 H, Magnesium 2.1, Total Bilirubin 0.4, AST 24, ALT 24, Alkaline Phosphatase 89 Assessment and Plan - Problems (Diagnosis) (1) Liver cirrhosis Current Visit: Yes Status: Acute Qualifiers: Hepatic cirrhosis type: unspecified hepatic cirrhosis Ascites presence: without ascites Qualified Code(s): K74.60 - Unspecified cirrhosis of liver (2) Acute on chronic diastolic CHF (congestive heart failure) Current Visit: Yes Status: Acute (3) Coronary artery disease Current Visit: Yes Status: Acute Qualifiers: Coronary Disease-Associated Artery/Lesion type: [place] artery [place] vs. transplanted heart: [place] heart Associated angina: without angina Qualified Code(s): I25.10 - Atherosclerotic heart disease of [place] coronary artery without angina pectoris (4) History of CVA (cerebrovascular accident) Current Visit: Yes Status: Acute - Plan The patient will be admitted to the hospital due to acute on chronic diastolic CHF. He has a recent echocardiogram done in [facility] showing normal LV function with EF about 63%. Will continue with IV diuretics, consult Cardiology team for evaluation and recommendation. - Advance Directives Does patient have a Living Will: No Does patient have a Durable POA for Healthcare: No - Code Status/Comfort Care Code Status Assessed: Yes Code Status: Full Code
[2018-03-12] MEDS ORDERED: ACETAMINOPHEN 500 MG TAB PO PRN (22:13)
[2018-03-12] MEDS ORDERED: ONDANSETRON 4 MG/2 ML VIAL IV PRN (22:13)
[2018-03-12] MEDS ORDERED: TRAMADOL HCL 50 MG TAB PO PRN (22:29)
[2018-03-12] MEDS: INSULIN -REGULAR HUMAN 50 UNIT/0.5 ML ML SQ SCH (23:40)
[2018-03-12] MEDS: ENOXAPARIN 40 MG/0.4 ML SQ SCH (23:41)
[2018-03-13] MEDS: FENTANYL CITR 100 MCG/2 ML IV PRN ×4 (00:42→21:31)
[2018-03-13 07:16] LABS: Absolute Lymphocytes (CBC) 1.7 K/uL (0.7-4.9); Absolute Monocytes 0.3 K/uL (0.1-1.3); Absolute Neutrophil 2.5 K/uL (1.8-8.0); Hematocrit 30.7 % (39.6-49.0); Lymphocytes % 35.9 % (15.3-44.8); MCH 31.9 pg (27.0-35.0); MCV 90.2 fL (80-100); MPV 9.4 fL (7.6-11.3); Monocytes % 6.6 % (3.3-12.3); RBC Red Blood Cell Count 3.41 M/uL (4.33-5.43)
[2018-03-13 07:17] LABS: Albumin 2.5 g/dL (3.4-5.0); Bilirubin Total 0.4 mg/dL (0.2-1.0); Potassium 4.4 mmol/L (3.5-5.1); Protein, Total 5.8 g/dL (6.4-8.2)
[2018-03-13] MEDS: ENOXAPARIN 40 MG/0.4 ML SQ SCH (08:31)
[2018-03-13] MEDS ORDERED: FUROSEMIDE 40 MG/4 ML VIAL IV SCH ×2 (09:00→17:00)
[2018-03-13] MEDS: INSULIN -REGULAR HUMAN 50 UNIT/0.5 ML ML SQ SCH ×4 (09:44→21:52)
[2018-03-13 10:48] LABS: Urine Appearance CLEAR; Urine Bilirubin NEGATIVE (NEG); Urine Blood 2+ (NEG); Urine Color YELLOW; Urine Glucose 3+ (NEG); Urine Protein 3+ (NEG); Urine Specific Gravity 1.015 (1.005-1.030); Urine Urobilinogen 0.2 mg/dL (0.2-1.0)
[2018-03-13 11:16] LABS: Urine Bacteria <20 /HPF (NONE SEEN); Urine RBC <5 /HPF (NONE SEEN)
[2018-03-13 11:17] LABS: Urine Culture Reflex Order NOT NEEDED
[2018-03-13] MEDS ORDERED: TRAMADOL HCL 50 MG TAB PO PRN (12:16)
--- NOTE | 2018-03-13 14:16 | CON ---
Chief Complaint: Swelling. History Of Present Illness: Mr. Kwong has had the same problem occur in the past. He is known to motta ve normal ejection fraction on his heart. He has had several intracoronary stent procedures. No byp ass surgery. He has developed anasarca. He has mild renal insufficiency, and the most recent creati nine is 1.8. His most recent estimated GFR is 40. He believes he does not eat an excessive amount o f sodium in his diet, but most people who believe that actually are surprised when it is actually pj wn to them how much they eat. The patient is getting Lasix. His weight a month ago was 185, today i t is 222, so it is possible he has gained as much as 40 pounds of weight over the last month. Medications: His home medications had been Tramadol, aspirin, furosemide 40 b.i.d., Plavix, simvasta tin, lisinopril, gabapentin, atenolol, Citalopram, and insulin. Past Medical History: Past history includes diabetes, coronary heart disease, renal insufficiency, a nd anasarca. Allergies: HE IS ALLERGIC TO ACETAMINOPHEN, CODEINE, HYDROCODONE, MORPHINE, TRAMADOL. Physical Examination: Vital signs: He is 5 feet and 7 inches, 222 pounds. Temperature 100.4, blood pressure 170/80, heart rate 76. HEENT: Normal. Skin: He has presacral edema, abdominal wall edema, pedal edema, edema of his thighs and scrotum. B asically he has anasarca. Laboratory Data: His laboratory exam reveals normal bilirubin, other liver function tests. Blood palm gar is away out of control. Creatinine 1.8. Troponins normal. Globulins are low. Impression: The patient is developing anasarca. He could have nephrotic syndrome. I am not sure if anybody has checked how much protein there is in his urine. His albumin levels are just 2.5 today. Diuresis will help. A Nephrology consult will help. Testing his urine for protein loss will be hel pful as well. Thank you very much for your kind referral of Mr. Kwong. I will follow him with you. SHAYAN/DOMINIC Voice ID: [id number] Report ID: [id number]
--- NOTE | 2018-03-13 15:16 | P.PN ---
Subjective Date of Service: 03/13/18 Chief Complaint: Acute on chronic diastolic CHF Patient seen and examined at bedside with RN. Chart reviewed. Case discussed with cardiology at this time. Patient states that his shortness of breath has resolved. Swelling in his lower extremity is improving however his abdominal pain and tightness has still not changed. No other c/o this AM Review of Systems 10-point ROS is otherwise unremarkable Physical Examination - Vital Signs Temperature: 97.9 F Blood Pressure: 177/78 Pulse: 68 Respirations: 17 Pulse Ox (%): 95 - Physical Exam General: Alert, In no apparent distress HEENT: Atraumatic, PERRLA, EOMI Neck: Supple, JVD not distended Respiratory: Normal air movement, Crackles/rales Cardiovascular: Regular rate/rhythm, Normal S1 S2, Edema Gastrointestinal: Normal bowel sounds, Distended, Tenderness Musculoskeletal: No tenderness Integumentary: No rashes Neurological: Normal speech, Normal tone, Normal affect Lymphatics: No axilla or inguinal lymphadenopathy - Studies Medications List Reviewed: Yes Assessment And Plan - Current Problems (Diagnosis) (1) Volume overload Current Visit: Yes Status: Acute Plan: Volume overload 2.2 to Liver cirrhosis vs ARF vs Nephrotic Syndrome -IV lasix 80mg BID for now -urine 24hrs Studies placed -Nephrology consulted. 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 mellitus long distance operator insulin use: without long distance operator use Diabetes mellitus complication status: without complication Qualified Code(s): E11.9 - Type 2 diabetes mellitus without complications (4) HTN (hypertension) Current Visit: Yes Status: Chronic Qualifiers: Hypertension type: essential hypertension Qualified Code(s): I10 - Essential (primary) hypertension (5) Hyperlipidemia Current Visit: Yes Status: Chronic Qualifiers: Hyperlipidemia type: unspecified Qualified Code(s): E78.5 - Hyperlipidemia , unspecified (6) Coronary artery disease Onset Date: 03/13/18 Current Visit: Yes Status: Chronic Qualifiers: Coronary Disease-Associated Artery/Lesion type: [place] artery [place] vs. transplanted heart: [place] heart Associated angina: without angina Qualified Code(s): I25.10 - Atherosclerotic heart disease of [place] coronary artery without angina pectoris (7) History of CVA (cerebrovascular accident) Current Visit: Yes Status: Chronic (8) Liver cirrhosis Onset Date: 03/13/18 Current Visit: Yes Status: Chronic Qualifiers: Hepatic cirrhosis type: unspecified hepatic cirrhosis Ascites presence: without ascites Qualified Code(s): K74.60 - Unspecified cirrhosis of liver Discharge Plan: Home Plan to discharge in: 48 Hours - Code Status/Comfort Care Code Status Assessed: Yes Critical Care: No
--- NOTE | 2018-03-13 15:18 | ECHO ---
HEIGHT: 5 ft 7 in WEIGHT: 222 lb 0 oz DATE OF STUDY: 03/13/[address]: David Fabian MD 2-DIMENSIONAL: YES M.MODE: YES DOPPLER: YES COLOR FLOW: YES TDS: PORTABLE: DEFINITY: BUBBLE STUDY: DIAGNOSIS: CONGESTIVE HEART FAILURE CARDIAC HISTORY: CATHERIZATION: YES SURGERY: NO PROSTHETIC VALVE: NO PACEMAKER: NO MEASUREMENTS (cm) DIASTOLIC (NORMALS) SYSTOLIC (NORMALS) IVSd 1.2 (0.6-1.2) LA Diam 4.6 (1.9-4.0) LVEF 66% LVIDd 4.8 (3.5-5.7) LVIDs 3.0 (2.0-3.5) %FS 36% LVPWd 1.4 (0.6-1.2) Ao Diam 3.1 (2.0-3.7) 2 DIMENSIONAL ASSESSMENT: RIGHT ATRIUM: NORMAL LEFT ATRIUM: DILATED RIGHT VENTRICLE: NORMAL LEFT VENTRICLE: LEFT VENTRICULAR HYPERTROPHY TRICUSPID VALVE: NORMAL MITRAL VALVE: NORMAL PULMONIC VALVE: NORMAL AORTIC VALVE: NORMAL PERICARDIAL EFFUSION: NONE AORTIC ROOT: NORMAL LEFT VENTRICULAR WALL MOTION: NORMAL DOPPLER/COLOR FLOW: MILD MITRAL REGURGITATION. COMMENTS: NORMAL LEFT VENTRICULAR EJECTION FRACTION. LEFT VENTRICULAR HYPERTROPHY. DILATED LEFT ATRIUM. MILD MITRAL REGURGITATION. TECHNOLOGIST: KENDELL PIMENTEL
[2018-03-13] MEDS: FUROSEMIDE 40 MG/4 ML VIAL IV SCH (21:00)
--- NOTE | 2018-03-13 21:00 | P.CNS ---
Date of Consult: 03/13/18 Reason for Consult: ASHLEY/ Anasarca Requesting Physician: Lisbeth Davis Chief Complaint: Acute on chronic diastolic CHF History of Present Illness: Mr. Kwong 52-year-old male with history of CAD status post stent placement, diabetes mellitus types 2, chronic diastolic CHF in [facility] about a month ago showing normal LV function with EF about 63%, who came to ER complaining of shortness of breath. He symptoms started about 3 weeks ago after he was discharged from [facility] where he was admitted for 1 week due to acute stroke. When he was home he noticed progressive shortness of breath getting worse with ambulation. He also was complaining of progressive lower extremity swelling and increasing abdominal girth. He denied any cough, fever or chills. Lab work remarkable for normal WBC count, creatinine 1.7, troponin I negative, normal liver function tests, elevated proBNP. chest-x-ray shows bilateral mild pulmonary edema. Bilateral Doppler ultrasound ruled out DVT. Abdominal CT scan consistent with liver cirrhosis and subcutaneous edema. 14:18 This 52 yrs old Male presents to ER via EMS with complaints of Headache. [facility] 14:18 Headache, abdominal pain, leg pain. Onset: The symptoms/episode began/ occurred jm gradually, 3 week(s) ago. This is a 52 year old male with a history of CAD , DM, HLP, HTN, that presents to the ED with 3 weeks of abdominal pain, abdominal swelling, leg swelling and right sided headache. Patient was discharged from the [facility] after a CVA with affected the right side of his face and partial vision in the right eye. Patient complains of increased leg pain and swelling with abdominal swelling. Patient states he is currently taking lasix 40 mg daily. Patient states he awoke this morning short of breath. Allergies acetaminophen [From [place]] Allergy (Verified 03/13/18 00:11) Hives/Rash codeine Allergy (Verified 03/12/18 23:24) Hives/Rash hydrocodone [From [place]] Allergy (Verified 03/13/18 00:11) Hives/Rash morphine Allergy (Verified 03/13/18 00:11) Hives/Rash tramadol [From [place]] Adverse Reaction (Verified 03/12/18 23:33) Itching Home medications list reviewed: Yes Home Medications: Aspirin Chewable [Aspirin Chewable*] 81 mg PO DAILY 03/12/18 Atenolol 50 mg PO DAILY 03/12/18 Citalopram [Celexa*] 20 mg PO DAILY 03/12/18 Clopidogrel Bisulfate [Plavix*] 75 mg PO DAILY 03/12/18 Furosemide [Lasix*] 40 mg PO BID 03/12/18 Gabapentin [Neurontin] 1,800 mg PO BID 03/12/18 Insulin 70/30 NPH/Reg Human [Novolin 70/30*] 80 units SQ BID 03/12/18 Lisinopril [Prinivil*] 20 mg PO DAILY 03/12/18 Simvastatin [Zocor] 80 mg PO BEDTIME 03/12/18 traMADol HCL [Ultram*] 50 mg PO Q6HP PRN 03/12/18 - Past Medical/Surgical History Diabetic: Yes -: CVA -: Liver cirrhosis, hep A -: CAD -: Diabetes mellitus types 2 -: [place] 07 -: neuropathy -: CHF -: heart stents -: left acl repair -: [place] - Family History Mother Medical History: Heart disease, Hypertension - Social History Smoking Status: Unknown if ever smoked Alcohol use: No CD- Drugs: No Caffeine use: Yes Place of Residence: Home Review of Systems 10-point ROS is otherwise unremarkable General: Weakness, Malaise Respiratory: SOB with Excertion Cardiovascular: Edema Neurological: Weakness Physical Examination Temp Pulse Resp BP Pulse Ox 97.3 F 76 18 174/81 H 95 03/13/18 16:00 03/13/18 17:28 03/13/18 16:00 03/13/18 17:28 03/13/18 16:00 General: Alert, In no apparent distress, Oriented x3, Cooperative HEENT: Atraumatic, Mucous membr. moist/pink Neck: Supple, JVD distended Respiratory: Clear to auscultation bilaterally, Diminished Cardiovascular: Regular rate/rhythm, Edema Gastrointestinal: Normal bowel sounds, Distended, Tenderness Musculoskeletal: No clubbing, No contractures, No warmth Integumentary: No rashes, No cyanosis Blood work reviewed in the chart. Initial serum creatinine 1.7 Imagings Data: HEIGHT: 5 ft 7 in WEIGHT: 222 lb 0 oz DATE OF STUDY: 03/13/[address]: David Fabian MD 2-DIMENSIONAL: YES M.MODE: YES DOPPLER: YES COLOR FLOW: YES TDS: PORTABLE: DEFINITY: BUBBLE STUDY: DIAGNOSIS: CONGESTIVE HEART FAILURE CARDIAC HISTORY: CATHERIZATION: YES SURGERY: NO PROSTHETIC VALVE: NO PACEMAKER: NO MEASUREMENTS (cm) DIASTOLIC (NORMALS) SYSTOLIC (NORMALS) IVSd 1.2 (0.6-1.2) LA Diam 4.6 (1.9-4.0) LVEF 66% LVIDd 4.8 (3.5-5.7) LVIDs 3.0 (2.0-3.5) %FS 36% LVPWd 1.4 (0.6-1.2) Ao Diam 3.1 (2.0-3.7) 2 DIMENSIONAL ASSESSMENT: RIGHT ATRIUM: NORMAL LEFT ATRIUM: DILATED RIGHT VENTRICLE: NORMAL LEFT VENTRICLE: LEFT VENTRICULAR HYPERTROPHY TRICUSPID VALVE: NORMAL MITRAL VALVE: NORMAL PULMONIC VALVE: NORMAL AORTIC VALVE: NORMAL PERICARDIAL EFFUSION: NONE AORTIC ROOT: NORMAL LEFT VENTRICULAR WALL MOTION: NORMAL DOPPLER/COLOR FLOW: MILD MITRAL REGURGITATION COMMENTS: NORMAL LEFT VENTRICULAR EJECTION FRACTION. LEFT VENTRICULAR HYPERTROPHY. DILATED LEFT ATRIUM. MILD MITRAL REGURGITATION. EXAM DESCRIPTION: CT - Stone Protocol - 03/12/2018 4:14 pm CLINICAL HISTORY: Abdominal pain. COMPARISON: 2014 TECHNIQUE: Computed axial tomography of the abdomen pelvis was obtained without oral or IV contrast. Lack of IV and oral contrast limits evaluation of solid organs, bowel, and vessels. Coronal reformatted images were obtained and reviewed. All CT scans are performed using dose optimization technique as appropriate and may include automated exposure control or mA/KV adjustment according to patient size. FINDINGS: Small bilateral pleural effusions A renal calculus is not seen. An ureteral calculus is not noted. A bladder calculus is not present. Liver has mildly nodular contour with prominence of the caudate and left lobes. The gallbladder has been removed Spleen, pancreas and adrenals appear grossly normal There is no evidence of diverticulitis. The appendix appears normal Diffuse edema is present within the subcutaneous tissues. Small umbilical hernia IMPRESSION: Negative for a genitourinary calculus Cirrhosis Diffuse edema within subcutaneous tissues Conclusions/Impression: A/ ASHLEY likely CRS. A/C Diastolic CHF. CKD III with proteinuria. HTN with CKD/ CHF. DM II with CKD and Neuropathy. Liver cirrhosis. Hypoalbuminemia. Anemia in chronic illness. Hypocalcemia. P/ Continue current POC and Medications. Increase Lasix 80 IV q8h. Start spironolactone. Start Doxazosin. Low sodium diet. Start Lantus qhs. Titrate insulin as needed to improve BG control. No NSAIDs. AM labs. Daily weight. Thank you kindly for the consultation.
[2018-03-13] MEDS ORDERED: GLUCAGON 1 MG/VIAL IM PRN (21:03)
[2018-03-13] MEDS ORDERED: D50W 25 GM/50 ML SYRINGE IV PRN (21:03)
[2018-03-13] MEDS: CIPROFLOXACIN/DEXAMETH OTIC 7.5 ML BTL OTIC SCH (21:24)
[2018-03-13] MEDS: GABAPENTIN 300 MG CAP PO SCH (21:24)
[2018-03-13] MEDS ORDERED: INSULIN GLARGINE 100 UNITS/ML SQ SCH (21:30)
[2018-03-13] MEDS: DOXAZOSIN 2 MG TAB PO SCH (21:50)
[2018-03-13] MEDS: SPIRONOLACTONE 25 MG TABLET PO SCH (21:50)
[2018-03-13] MEDS: ATORVASTATIN 40 MG TAB PO SCH (21:52)
[2018-03-14 04:57] VITALS: BMI 33.9
[2018-03-14] MEDS: FUROSEMIDE 40 MG/4 ML VIAL IV SCH ×3 (05:08→20:49)
[2018-03-14 05:20] LABS: Absolute Lymphocytes (CBC) 1.7 K/uL (0.7-4.9); Absolute Monocytes 0.3 K/uL (0.1-1.3); Absolute Neutrophil 1.7 K/uL (1.8-8.0); Basophils % 1.2 % (0-1.3); Eosinophils % 6.1 % (0-4.4); Hematocrit 29.2 % (39.6-49.0); Lymphocytes % 42.1 % (15.3-44.8); MCH 32.1 pg (27.0-35.0); MCV 89.5 fL (80-100); MPV 9.1 fL (7.6-11.3); Monocytes % 7.7 % (3.3-12.3); RBC Red Blood Cell Count 3.26 M/uL (4.33-5.43)
[2018-03-14 05:33] LABS: Albumin 2.6 g/dL (3.4-5.0); Bilirubin Total 0.4 mg/dL (0.2-1.0); Potassium 4.1 mmol/L (3.5-5.1); Protein, Total 5.8 g/dL (6.4-8.2); Uric Acid 9.6 mg/dL (3.5-7.2)
[2018-03-14] MEDS: ATENOLOL 50 MG TAB PO SCH (09:29)
[2018-03-14] MEDS: LISINOPRIL 20 MG TAB PO SCH (09:29)
[2018-03-14] MEDS: VITAMIN D 5,000 UNIT CAP PO SCH (09:29)
[2018-03-14] MEDS: ENOXAPARIN 40 MG/0.4 ML SQ SCH (09:30)
[2018-03-14] MEDS: GABAPENTIN 300 MG CAP PO SCH ×2 (09:30→20:48)
[2018-03-14] MEDS: CLOPIDOGREL 75 MG TABLET PO SCH (09:30)
[2018-03-14] MEDS: CITALOPRAM 10 MG TABLET PO SCH (09:31)
[2018-03-14] MEDS: ASPIRIN 81 MG CHEWABLE TABLET PO SCH (09:31)
[2018-03-14] MEDS: INSULIN -REGULAR HUMAN 50 UNIT/0.5 ML ML SQ SCH ×4 (09:31→20:49)
[2018-03-14] MEDS: CIPROFLOXACIN/DEXAMETH OTIC 7.5 ML BTL OTIC SCH ×2 (09:43→20:47)
--- NOTE | 2018-03-14 11:16 | P.PN ---
Subjective Date of Service: 03/14/18 Chief Complaint: Acute on chronic diastolic CHF Patient seen and examined at bedside with RN. Chart reviewed. Case discussed with cardiology at this time. Patient states that his shortness of breath has resolved. Swelling in his lower extremity is improving however his abdominal pain and tightness has still not changed. No other c/o this AM Review of Systems 10-point ROS is otherwise unremarkable Physical Examination - Vital Signs Temperature: 97.3 F Blood Pressure: 155/69 Pulse: 72 Respirations: 20 Pulse Ox (%): 95 - Physical Exam General: Alert, In no apparent distress HEENT: Atraumatic, PERRLA, EOMI Neck: Supple, JVD not distended Respiratory: Normal air movement, Crackles/rales Cardiovascular: Regular rate/rhythm, Normal S1 S2 Gastrointestinal: Normal bowel sounds, Tenderness Musculoskeletal: No tenderness Integumentary: No rashes Neurological: Normal speech, Normal tone, Normal affect Lymphatics: No axilla or inguinal lymphadenopathy - Studies Medications List Reviewed: Yes Assessment And Plan - Current Problems (Diagnosis) (1) Volume overload Current Visit: Yes Status: Acute Plan: Volume overload 2.2 to Liver cirrhosis vs ARF vs Nephrotic Syndrome -IV lasix 80mg BID for now -urine 24hrs Studies placed -Nephrology consulted. Awaiting reccs -Cardiology Consulted. Appreciated Reccs 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 mellitus skilled nursing insulin use: without skilled nursing use Diabetes mellitus complication status: without complication Qualified Code(s): E11.9 - Type 2 diabetes mellitus without complications (4) HTN (hypertension) Current Visit: Yes Status: Chronic Qualifiers: Hypertension type: essential hypertension Qualified Code(s): I10 - Essential (primary) hypertension (5) Hyperlipidemia Current Visit: Yes Status: Chronic Qualifiers: Hyperlipidemia type: unspecified Qualified Code(s): E78.5 - Hyperlipidemia , unspecified (6) Coronary artery disease Onset Date: 03/13/18 Current Visit: Yes Status: Chronic Qualifiers: Coronary Disease-Associated Artery/Lesion type: [place] artery [place] vs. transplanted heart: [place] heart Associated angina: without angina Qualified Code(s): I25.10 - Atherosclerotic heart disease of [place] coronary artery without angina pectoris (7) History of CVA (cerebrovascular accident) Current Visit: Yes Status: Chronic (8) Liver cirrhosis Onset Date: 03/13/18 Current Visit: Yes Status: Chronic Qualifiers: Hepatic cirrhosis type: unspecified hepatic cirrhosis Ascites presence: without ascites Qualified Code(s): K74.60 - Unspecified cirrhosis of liver
[2018-03-14 13:57] LABS: Urine Microalbumin Excretion R 3941.7 ug/min (< 20)
--- NOTE | 2018-03-14 14:25 | PN ---
Mr. Kwong seems to be doing better. He has lost a lot of edema. It looks like he is down about 6 po unds on a scale. We need to continue the diuresis. Underway is a 24-hour urine for protein. I am s uspicious he may have nephrotic syndrome. If he does prove to have a lot of proteinuria, considerati on should be made to see if he has deficiency in antithrombin III. If that is the case, then using a drug like Lovenox or heparin would be ineffective at DVT prophylaxis. His heart ejection fraction i s normal. He has mild LVH, mild diastolic dysfunction. I think, although the heart contributes his major contributors are his renal function and low albumin levels. SH/MODL Voice ID: [id number] Report ID: [id number]
[2018-03-14] MEDS: FENTANYL CITR 100 MCG/2 ML IV PRN ×2 (15:13→22:33)
[2018-03-14] MEDS: DOXAZOSIN 2 MG TAB PO SCH (20:47)
[2018-03-14] MEDS: SPIRONOLACTONE 25 MG TABLET PO SCH (20:47)
[2018-03-14] MEDS: ATORVASTATIN 40 MG TAB PO SCH (20:48)
[2018-03-14] MEDS ORDERED: INSULIN GLARGINE 100 UNITS/ML SQ SCH (21:00)
[2018-03-14] MEDS ORDERED: PANTOPRAZOLE 40MG TABLET PO ONE (22:15)
[2018-03-15] MEDS: FENTANYL CITR 100 MCG/2 ML IV PRN ×2 (04:33→10:59)
[2018-03-15] MEDS: FUROSEMIDE 40 MG/4 ML VIAL IV SCH ×2 (04:34→13:00)
[2018-03-15 05:21] LABS: Absolute Lymphocytes (CBC) 1.9 K/uL (0.7-4.9); Absolute Monocytes 0.4 K/uL (0.1-1.3); Absolute Neutrophil 2.1 K/uL (1.8-8.0); Basophils % 1.2 % (0-1.3); Eosinophils % 6.4 % (0-4.4); Hematocrit 28.3 % (39.6-49.0); Lymphocytes % 40.6 % (15.3-44.8); MCH 32.2 pg (27.0-35.0); MCV 89.4 fL (80-100); MPV 9.6 fL (7.6-11.3); Monocytes % 7.9 % (3.3-12.3); RBC Red Blood Cell Count 3.17 M/uL (4.33-5.43)
[2018-03-15 05:36] LABS: Albumin 2.7 g/dL (3.4-5.0); Bilirubin Total 0.4 mg/dL (0.2-1.0); Potassium 3.8 mmol/L (3.5-5.1)
[2018-03-15] MEDS ORDERED: PANTOPRAZOLE 40MG TABLET PO SCH (06:30)
[2018-03-15] MEDS ORDERED: POTASSIUM CL SA 10 MEQ TAB PO ONE (09:00)
[2018-03-15] MEDS: INSULIN -REGULAR HUMAN 50 UNIT/0.5 ML ML SQ SCH ×2 (09:10→12:32)
[2018-03-15] MEDS: GABAPENTIN 300 MG CAP PO SCH (09:24)
[2018-03-15] MEDS: VITAMIN D 5,000 UNIT CAP PO SCH (09:25)
[2018-03-15] MEDS: ATENOLOL 50 MG TAB PO SCH (09:25)
[2018-03-15] MEDS: LISINOPRIL 20 MG TAB PO SCH (09:26)
[2018-03-15] MEDS: ASPIRIN 81 MG CHEWABLE TABLET PO SCH (09:26)
[2018-03-15] MEDS: CITALOPRAM 10 MG TABLET PO SCH (09:26)
[2018-03-15] MEDS: CLOPIDOGREL 75 MG TABLET PO SCH (09:26)
[2018-03-15] MEDS: ENOXAPARIN 40 MG/0.4 ML SQ SCH (09:27)
[2018-03-15] MEDS: CIPROFLOXACIN/DEXAMETH OTIC 7.5 ML BTL OTIC SCH (09:27)
[2018-03-15 14:07] VITALS: BP 111/78; TEMP 97
[2018-03-15 15:37] VITALS: O2SAT 97
== END 2018-03-15 14:12 | disposition home or self-care (01) ==
LOC: ER 13:16 → ERHOLD 17:42 → 2ND 21:30
PROVIDERS: ADMIT Family Medicine; ATTEND Internal Medicine
DX: I13.0 Hypertensive heart and chronic kidney disease with heart failure and stage 1 through stage 4 chronic kidney disease, or unspecified chronic kidney disease (principal); E11.22 Type 2 diabetes mellitus with diabetic chronic kidney disease; N18.3 Chronic kidney disease, stage 3 (moderate); I50.33 Acute on chronic diastolic (congestive) heart failure; N17.9 Acute kidney failure, unspecified; K74.60 Unspecified cirrhosis of liver; E88.09 Other disorders of plasma-protein metabolism, not elsewhere classified; E83.51 Hypocalcemia; D63.1 Anemia in chronic kidney disease; E78.5 Hyperlipidemia, unspecified; I25.10 Atherosclerotic heart disease of native coronary artery without angina pectoris; Z95.5 Presence of coronary angioplasty implant and graft
CPT/HCPCS: 36415; 70450; 71045; 74176; 76377; 80048; 80053; 80076; 81001; 82043; 82436; 82570; 82947; 82962; 83735; 83880; 84100; 84133; 84156; 84300; 84484; 84550; 85025; 85610; 93005; 93306; 93970; 96374; 96375; 99285; G0378; J1650; J1940; J2405; J3010

== ENCOUNTER 2018-04-21 10:53 | Inpatient (IN) | payer SELFPAY ==
--- OUTSIDE RECORDS SUMMARY | 2018-04-21 10:57 | XMS REPORT | Clinical Summary ---
:1965 Author Organization [facility] Address [address] [place] [address] Care Team Providers Name Role Phone Asked, [...] (six) hours as needed for mild pain. insulin 70/30 NPH Inject 80 20 mL 2 02/16/2018 Active and regular human units twice a (NovoLIN 70/30 U-100 day with food Insulin) 100 unit/mL (70-30) injection insulin Inject twice a 100 each 2 02/16/2018 Active syringe-needle U-100 day (BD INSULIN SYRINGE ULTRA-FINE) 1 mL 31 gauge x 5/16 syringe aspirin 325 MG Take 325 mg by 0 Active tablet mouth daily. simvastatin (ZOCOR) Take 40 mg by 0 02/19/2016 Active 80 MG tablet mouth nightly. traMADol (ULTRAM) 50 Take 50 mg by 0 08/23/2016 Active mg tablet mouth every 6 (six) hours as needed. atenolol (TENORMIN) Take 50 mg by 0 04/03/2017 Active 50 MG tablet mouth daily. citalopram (CeleXA) Take 20 mg by 0 12/04/2016 Active 20 MG tablet mouth daily. ergocalciferol Take 1 capsule 4 capsule 11 04/04/2018 Active (VITAMIN D2) 50,000 (50,000 Units 9 unit capsule total) by mouth once a week. furosemide (LASIX) Take 1 tablet 60 tablet 2 03/31/2018 Active 40 mg tablet (40 mg total) 9 by mouth 2 (two) times a day for 30 days. metFORMIN Take 500 mg by 0 Discontinued [...] tablet (two) times a day with meals. atorvastatin Take 1 tablet 30 tablet 2 02/13/2018 (LIPITOR) 80 MG (80 mg total) 8 tablet by mouth nightly for 30 days. insulin lispro Inject 35 [...] injection the skin nightly for 30 days. aspirin 81 mg Chew 1 tablet 100 tablet 3 02/14/2018 chewable tablet (81 mg total) 8 daily for 30 days. clopidogrel (PLAVIX) Take 1 tablet 30 tablet 6 02/14/2018 75 mg tablet (75 mg total) 8 by mouth daily for 30 days. ergocalciferol Take 1 capsule 4 capsule 0 02/20/2018 Discontinued (VITAMIN D2) 50,000 (50,000 Units 8 unit capsule total) by mouth once a week for 30 days. furosemide (LASIX) Take 1 tablet 60 tablet 1 02/16/2018 40 mg tablet (40 mg total) 8 by mouth 2 (two) times a day for 30 days. clopidogrel (PLAVIX) Take 75 mg by 0 02/11/2017 Discontinued 75 mg tablet mouth daily. 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 Chest pain 12/01/2016 Essential hypertension 12/01/2016 Coronary artery disease involving kenaitze coronary artery 12/01/2016 Cirrhosis 12/01/2016 Hypertriglyceridemia 12/01/2016 Depression 12/01/2016 Encounters Date Type Specialty Care Team Description 03/20/2018 - [facility], Acute renal failure, unspecified acute renal failure type (HCC) (Primary Dx); 03/31/2018 Encounter Medicine [facility], Cirrhosis of liver with ascites , unspecified hepatic cirrhosis type (HCC); Old cerebrovascular accident (CVA) without late effect; Tomi, Essential hypertension; Milton Schumacher Hypertriglyceridemia; , Current mild episode of major depressive disorder, unspecified whether recurrent (HCC); Occlusion of right posterior communicating artery; 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 (HCC); Other forms of angina pectoris (HCC); Armenta's palsy; Ataxia; Current mild episode of major depressive disorder without prior episode (HCC) 02/07/2018 - [facility] [place] Occlusion of right posterior communicating artery (Primary Dx); 02/16/2018 Encounter DO Kevin Armenta's palsy; Tomi, Ataxia; Milton Schumacher Essential hypertension; MD Adelfo Coronary artery disease involving kenaitze coronary artery of kenaitze heart without angina pectoris; Hypertriglyceridemia; 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 (HCC) 07/11/2017 - Hospital [facility] Tomi, Stable angina pectoris (Primary Dx); 07/12/2017 Encounter Milton Schumacher Mixed hyperlipidemia; MD Adelfo Essential hypertension; Type 2 diabetes mellitus with hyperosmolarity without coma, without long-term current use of insulin; Alcoholic cirrhosis of liver without ascites; Mild single current episode of major depressive disorder; Hypertriglyceridemia after 04/20/2017 Family History Medical History Relation Name Comments [...] Vital Sign Reading Time Taken Blood Pressure 165/77 03/31/2018 8:31 AM CLAY DIGGER Pulse 66 03/31/2018 8:31 AM CLAY DIGGER Temperature 36.6 C (97.9 F) 03/31/2018 8:31 AM CLAY DIGGER Respiratory Rate 18 03/31/2018 8:31 AM CLAY DIGGER Oxygen Saturation 95% 03/31/2018 8:31 AM CLAY DIGGER Inhaled Oxygen Concentration - - Weight 96.6 kg (212 lb 14.4 oz) 03/31/2018 3:57 AM CLAY DIGGER Height 170.2 cm (5' 7") 03/20/2018 4:56 PM CLAY DIGGER Body Mass Index 33.34 03/31/2018 3:57 AM CLAY DIGGER Plan of Treatment Health Maintenance Due Date Last Done Comments DIABETIC RETINAL EYE EXAM 1965 DIABETIC FOOT EXAM 07/30/1977 URINE MICROALBUMIN 07/30/1977 COLON CANCER SCREENING 07/30/2017 SHINGLES VACCINES (1 of 2) 07/30/2017 INFLUENZA VACCINE 11/26/2017 Implants Implanted Type Area German Professor Device Shelf Model / Identifier Expiration Serial / Date Lot Orthopedic Orthopedic Surgical Surgical Implants Implants Procedures Procedure Name Priority Date/Time Associated Comments Diagnosis POC GLUCOSE Routine 03/31/2018 8:28 Results for this AM CLAY DIGGER procedure are in the results section. ESTIMATED GFR Routine 03/31/2018 3:19 Results for this AM CLAY DIGGER procedure are in the results section. BASIC METABOLIC PANEL Routine 03/31/2018 3:19 Results for this AM CLAY DIGGER procedure are in the results section. POC GLUCOSE Routine 03/30/2018 11:23 Results for this PM CLAY DIGGER procedure are in the results section. POC GLUCOSE Routine 03/30/2018 8:25 Results for this PM CLAY DIGGER procedure are in the results section. POC GLUCOSE Routine 03/30/2018 5:09 Results for this PM CLAY DIGGER procedure are in the results section. POC GLUCOSE Routine 03/30/2018 12:17 Results for this PM CLAY DIGGER procedure are in the results section. POC GLUCOSE Routine 03/30/2018 8:07 Results for this AM CLAY DIGGER procedure are in the results section. ESTIMATED GFR Routine 03/30/2018 2:29 Results for this AM CLAY DIGGER procedure are in the results section. BASIC METABOLIC PANEL Routine 03/30/2018 2:29 Results for this AM CLAY DIGGER procedure are in the results section. POC GLUCOSE Routine 03/30/2018 1:44 Results for this AM CLAY DIGGER procedure are in the results section. POC GLUCOSE Routine 03/29/2018 9:13 Results for this PM CLAY DIGGER procedure are in the results section. POC GLUCOSE Routine 03/29/2018 7:27 Results for this PM CLAY DIGGER procedure are in the results section. POC GLUCOSE Routine 03/29/2018 5:21 Results for this PM CLAY DIGGER procedure are in the results section. POC GLUCOSE Routine 03/29/2018 12:17 Results for this PM CLAY DIGGER procedure are in the results section. POC GLUCOSE Routine 03/29/2018 7:41 Results for this AM CLAY DIGGER procedure are in the results section. POC GLUCOSE Routine 03/28/2018 9:14 Results for this PM CLAY DIGGER procedure are in the results section. POC GLUCOSE Routine 03/28/2018 5:18 Results for this PM CLAY DIGGER procedure are in the results section. POC GLUCOSE Routine 03/28/2018 11:32 Results for this AM CLAY DIGGER procedure are in the results section. POC GLUCOSE Routine 03/28/2018 8:19 Results for this AM CLAY DIGGER procedure are in the results section. POC GLUCOSE Routine 03/28/2018 7:17 Results for this AM CLAY DIGGER procedure are in the results section. ESTIMATED GFR Routine 03/28/2018 4:00 Results for this AM CLAY DIGGER procedure are in the results section. BASIC METABOLIC PANEL Routine 03/28/2018 4:00 Results for this AM CLAY DIGGER procedure are in the results section. POC GLUCOSE Routine 03/27/2018 8:58 Results for this PM CLAY DIGGER procedure are in the results section. POC GLUCOSE Routine 03/27/2018 4:55 Results for this PM CLAY DIGGER procedure are in the results section. POC GLUCOSE Routine 03/27/2018 11:54 Results for this AM CLAY DIGGER procedure are in the results section. POC GLUCOSE Routine 03/27/2018 7:48 Results for this AM CLAY DIGGER procedure are in the results section. ESTIMATED GFR Routine 03/27/2018 4:00 Results for this AM CLAY DIGGER procedure are in the results section. BASIC METABOLIC PANEL Routine 03/27/2018 4:00 Results for this AM CLAY DIGGER procedure are in the results section. POC GLUCOSE Routine 03/27/2018 12:19 Results for this AM CLAY DIGGER procedure are in the results section. POC GLUCOSE Routine 03/26/2018 8:44 Results for this PM CLAY DIGGER procedure are in the results section. POC GLUCOSE Routine 03/26/2018 5:04 Results for this PM CLAY DIGGER procedure are in the results section. ALBUMIN LEVEL Routine 03/26/2018 3:50 Results for this PM CLAY DIGGER procedure are in the results section. US DUPLEX VENOUS LOWER Routine 03/26/2018 2:24 Results for this EXTREMITY BILATERAL PM CLAY DIGGER procedure are in the results section. POC GLUCOSE Routine 03/26/2018 12:22 Results for this PM C[facility] DIGGER procedure are in the results section. POC GLUCOSE Routine 03/26/2018 8:09 Results for this AM C[facility] DIGGER procedure are in the results section. ESTIMATED GFR Routine 03/26/2018 4:00 Results for this AM C[facility] DIGGER procedure are in the results section. BASIC METABOLIC PANEL Routine 03/26/2018 4:00 Results for this AM CLAY DIGGER procedure are in the results section. POC GLUCOSE Routine 03/25/2018 8:43 Results for this PM CLAY DIGGER procedure are in the results section. POC GLUCOSE Routine 03/25/2018 5:33 Results for this PM CLAY DIGGER procedure are in the results section. POC GLUCOSE Routine 03/25/2018 12:15 Results for this PM CLAY DIGGER procedure are in the results section. POC GLUCOSE Routine 03/25/2018 7:41 Results for this AM C[facility] DIGGER procedure are in the results section. ESTIMATED GFR Routine 03/25/2018 4:00 Results for this AM C[facility] DIGGER procedure are in the results section. BASIC METABOLIC PANEL Routine 03/25/2018 4:00 Results for this AM CLAY DIGGER procedure are in the results section. B NATRIURETIC PEPTIDE Routine 03/25/2018 3:30 Results for this AM CLAY DIGGER procedure are in the results section. POC GLUCOSE Routine 03/24/2018 8:51 Results for this PM CLAY DIGGER procedure are in the results section. POC GLUCOSE Routine 03/24/2018 5:43 Results for this PM C[facility] DIGGER procedure are in the results section. POC GLUCOSE Routine 03/24/2018 12:01 Results for this PM C[facility] DIGGER procedure are in the results section. POC GLUCOSE Routine 03/24/2018 7:32 Results for this AM CLAY DIGGER procedure are in the results section. ESTIMATED GFR Routine 03/24/2018 4:00 Results for this AM C[facility] D[facility]GER procedure are in the results section. BASIC METABOLIC PANEL Routine 03/24/2018 4:00 Results for this AM C[facility] DIGGER procedure are in the results section. HC COMPLETE BLD COUNT Routine 03/24/2018 3:30 Results for this W/AUTO DIFF AM CLAY DIGGER procedure are in the results section. POC GLUCOSE Routine 03/23/2018 8:25 Results for this PM C[facility] DIGGER procedure are in the results section. POC GLUCOSE Routine 03/23/2018 5:27 Results for this PM C[facility] DIGGER procedure are in the results section. POC GLUCOSE Routine 03/23/2018 12:29 Results for this PM C[facility] DIGGER procedure are in the results section. POC GLUCOSE Routine 03/23/2018 8:17 Results for this AM C[facility] DIGGER procedure are in the results section. HC COMPLETE BLD COUNT Routine 03/23/2018 4:30 Results for this W/AUTO DIFF AM CLAY DIGGER procedure are in the results section. ESTIMATED GFR Routine 03/23/2018 4:00 Results for this AM C[facility] DIGGER procedure are in the results section. BASIC METABOLIC PANEL Routine 03/23/2018 4:00 Results for this AM C[facility] DIGGER procedure are in the results section. POC GLUCOSE Routine 03/22/2018 5:24 Results for this PM CLAY DIGGER procedure are in the results section. POC GLUCOSE Routine 03/22/2018 12:23 Results for this PM CLAY DIGGER procedure are in the results section. POC GLUCOSE Routine 03/22/2018 8:15 Results for this AM CLAY DIGGER procedure are in the results section. ESTIMATED GFR Routine 03/22/2018 5:50 Results for this AM C[facility] DIGGER procedure are in the results section. HC COMPLETE BLD COUNT Routine 03/22/2018 4:20 Results for this W/AUTO DIFF AM CLAY DIGGER procedure are in the results section. ESTIMATED GFR Routine 03/22/2018 4:00 Results for this AM C[facility] DIGGER procedure are in the results section. SERUM ELECTROPHORESIS Routine 03/22/2018 4:00 Results for this AM C[facility] DIGGER procedure are in the results section. HEPATITIS C ANTIBODY Routine 03/22/2018 4:00 Results for this AM C[facility] DIGGER procedure are in the results section. HEPATITIS B SURFACE Routine 03/22/2018 4:00 Results for this ANTIGEN AM CLAY DIGGER procedure are in the results section. HEPATITIS B SURFACE Routine 03/22/2018 4:00 Results for this ANTIBODY AM CLAY DIGGER procedure are in the results section. HEPATITIS B CORE Routine 03/22/2018 4:00 Results for this ANTIBODY TOTAL AM CLAY DIGGER procedure are in the results section. C4 COMPLEMENT COMPONENT Routine 03/22/2018 4:00 Results for this AM C[facility] DIGGER procedure are in the results section. C3 COMPLEMENT COMPONENT Routine 03/22/2018 4:00 Results for this AM CLAY DIGGER procedure are in the results section. RHEUMATOID FACTOR Routine 03/22/2018 4:00 Results for this AM CLAY DIGGER procedure are in the results section. ANNE Routine 03/22/2018 4:00 Results for this AM C[facility] DIGGER procedure are in the results section. BASIC METABOLIC PANEL Routine 03/22/2018 4:00 Results for this AM C[facility] DIGGER procedure are in the results section. POC GLUCOSE Routine 03/21/2018 9:39 Results for this PM C[facility] DIGGER procedure are in the results section. CREATININE CLEARANCE, Routine 03/21/2018 5:30 Results for this URINE, 24 HOUR PM CLAY DIGGER procedure are in the results section. URINE PROTEIN Routine 03/21/2018 5:30 Results for this ELECTROPHORESIS, 24 HOUR PM CLAY DIGGER procedure are in the results section. POC GLUCOSE Routine 03/21/2018 5:21 Results for this PM C[facility] DIGGER procedure are in the results section. ESTIMATED GFR Routine 03/21/2018 3:50 Results for this PM C[facility] DIGGER procedure are in the results section. CREATININE CLEARANCE, Routine 03/21/2018 3:50 Results for this URINE, 24 HOUR PM C[facility] DIGGER procedure are in the results section. POC GLUCOSE Routine 03/21/2018 12:08 Results for this PM C[facility] DIGGER procedure are in the results section. US RENAL STAT 03/21/2018 11:18 Results for this AM C[facility] DIGGER procedure are in the results section. POC GLUCOSE Routine 03/21/2018 8:20 Results for this AM C[facility] DIGGER procedure are in the results section. URINALYSIS SCREEN AND Routine 03/21/2018 6:47 Results for this MICROSCOPY, WITH REFLEX AM CLAY DIGGER procedure are in TO CULTURE the results section. URINE CULTURE Routine 03/21/2018 6:47 Results for this AM C[facility] DIGGER procedure are in the results section. ESTIMATED GFR Routine 03/21/2018 4:17 Results for this AM C[facility] DIGGER procedure are in the results section. T4, FREE Routine 03/21/2018 4:17 Results for this AM C[facility] DIGGER procedure are in the results section. THYROID STIMULATING Routine 03/21/2018 4:17 Results for this HORMONE AM C[facility] DIGGER procedure are in the results section. LIPID PANEL Routine 03/21/2018 4:17 Results for this AM C[facility] DIGGER procedure are in the results section. BASIC METABOLIC PANEL Routine 03/21/2018 4:17 Results for this AM C[facility] DIGGER procedure are in the results section. HC COMPLETE BLD COUNT Routine 03/21/2018 4:17 Results for this W/AUTO DIFF AM C[facility] DIGGER procedure are in the results section. HEMOGLOBIN A1C Routine 03/20/2018 11:58 Results for this PM C[facility] DIGGER procedure are in the results section. TROPONIN Timed 03/20/2018 11:58 Results for this PM [facility] DIGGER procedure are in the results section. POC GLUCOSE Routine 03/20/2018 11:48 Results for this PM [facility] DIGGER procedure are in the results section. XR CHEST 1 VW PORTABLE STAT 03/20/2018 11:33 Results for this PM C[facility] DIGGER procedure are in the results section. CT HEAD WO CONTRAST STAT 03/20/2018 11:16 Results for this PM [facility] DIGGER procedure are in the results section. ESTIMATED GFR STAT 03/20/2018 5:28 Results for this PM C[facility] DIGGER procedure are in the results section. B NATRIURETIC PEPTIDE STAT 03/20/2018 5:28 Results for this PM [facility] DIGGER procedure are in the results section. TROPONIN STAT 03/20/2018 5:28 Results for this PM C[facility] DIGGER procedure are in the results section. COMPREHENSIVE METABOLIC STAT 03/20/2018 5:28 Results for this PANEL PM C[facility] DIGGER procedure are in the results section. PROTHROMBIN TIME WITH STAT 03/20/2018 5:28 Results for this INR PM C[facility] DIGGER procedure are in the results section. PARTIAL THROMBOPLASTIN STAT 03/20/2018 5:28 Results for this TIME (PTT) PM C[facility] DIGGER procedure are in the results section. HC COMPLETE BLD COUNT STAT 03/20/2018 5:28 Results for this W/AUTO DIFF PM C[facility] DIGGER procedure are in the results section. ECG 12-LEAD STAT 03/20/2018 5:24 Results for this PM C[facility] DIGGER procedure are in the results section. POC GLUCOSE Routine 02/16/2018 12:00 Results for [...] are in SPECTRAL COLOR DOPPLER the results (77282) section. ESTIMATED GFR Routine 02/09/2018 4:14 Results [...] are in SPECTRAL COLOR DOPPLER the results (35223) section. POC GLUCOSE Routine 07/12/2017 7:31 Results [...] procedure are in the results section. after 04/20/2017 Results POC glucose (03/31/2018 8:28 AM CLAY DIGGER)Only the most recent of97 resultswithin the time period is included. POC glucose 341 (H) 65 - 99 mg/dL [facility] Comment: [facility], [facility] Notified RN Meter ID: [id number] Service Aide: Cem Colon Performing Organization Address City/[facility] Phone Number [facility] DEPARTMENT OF PATHOLOGY AND [address] [place] [address] Estimated GFR (03/31/2018 3:19 AM CLAY DIGGER)Only the most recent of19 resultswithin the time period is included. Estimated GFR 40 (A) mL/min/1.73 m2 [facility] Comment: HOSPITAL CatergoryUnitsInterpretation G1 >=90 Normal or high G2 60-89Mildly decreased [id number] to moderately decreased V8l85-98Rymehjyxdk to severely decreased G4 15-29Severely decreased G5 <15Kidney failure The eGFR was calculated using the Chronic Kidney Disease Epidemiology Collaboration (CKD-EPI) equation. Interpretation is based on recommendations of the National Kidney Foundation-Kidney Disease Outcomes Quality Initiative (NKF-KDOQI) published in 2014. Specimen Plasma specimen Performing Organization Address City/[facility] Phone Number [facility] DEPARTMENT OF PATHOLOGY AND [address] [address] Basic metabolic panel (03/31/2018 3:19 AM CLAY DIGGER)Only the most recent of16 resultswithin the time period is included. Sodium 137 135 - 148 mEq/L [facility] Potassium 4.3 3.5 - 5.0 mEq/L [facility] Chloride 96 (L) 98 - 112 mEq/L [facility] CO2 25 24 - 31 mEq/L [facility] Anion gap 16@ANIO (H) 7 - 15 mEq/L [facility] BUN 61 (H) 6 - 20 mg/dL [facility] Creatinine 1.91 (H) 0.70 - 1.20 mg/dL [facility] Glucose 336 (H) 65 - 99 mg/dL [facility] Calcium 9.7 8.3 - 10.2 mg/dL [facility] Specimen Plasma specimen Performing Organization Address [facility] Phone Number [facility] DEPARTMENT OF PATHOLOGY AND [address] [place] [address] Albumin level (03/26/2018 3:50 PM CLAY DIGGER) Albumin 3.3 (L) 3.5 - 5.0 g/dL [facility] Specimen Plasma specimen Performing Organization Address [facility] Phone Number [facility] DEPARTMENT OF PATHOLOGY AND [address] [place] [address] Us duplex venous lower extremity (03/26/2018 2:24 PM CLAY DIGGER) Narrative Performed At [facility] Vascular Ultrasound Laboratory Lower Extremity Venous Report [address] [place] [address] Pat.Name:PAOLA KWONG Pat.ID:[id number] .Date: 03/26/2018Refer.MD:USHA OQUENDO MD Exam Time: 1:48:00 PMStudy Type:LE Venous Height:67inWeight: 227lb BSA: 2.14 m2 DOBAge:1965,52Y Sex: MALESonogrphr: Florence Eli RVT Pat. Stat.:Inpatient Room:[address] TapeVol: ZACHARIAH, CPT - 4: 68324 Echo Event ID:[id number] Order ID:[id number] Reason for Study:LE swelling and pain, evaluation for DVT. Procedures:Colorflow, Grayscale/2D, Pulsed wave Doppler Race:Other SUMMARY: * Normal Reflux Criteria:< 0.5 seconds * Abnormal Reflux Criteria:> or equal to 0.5 seconds DUPLEX SCAN OBSERVATIONS Deep VeinsSuperficial Veins RightLeft RightLeft GSV (prox) NormalNormal CFV Normal Normal (above knee) Femoral Normal Normal GSV (dist) Normal Normal Profunda Normal Normal (below knee) Popliteal Normal Normal Gastrocs Normal Normal PT (prox) Normal NormalSSV Normal Normal PT (dist) Normal Not Visualized Peroneal Normal Normal RIGHT:There is normal compressibility with no evidence of echogenic material noted within the lumen of the visualized veins. Colorflow and Doppler signals are normal. LEFT: There is normal compressibility with no evidence of echogenic material noted within the lumen of the visualized veins. Colorflow and Doppler signals are normal. The distal posterior tibial and peroneal veins are not visualized due to dressing. PRELIMINARY FINDINGS 1. No evidence of venous thrombosis of visualized veins in bilateral lower extremities. PHYSICIAN INTERPRETATION Venous examination of the both lower extremities demonstrated no evidence of venous thrombosis in the visualized veins.Normal compressibility and augmentation of all veins visualized. Signed 03/26/2018 08:53 PM Valentín Vallejo MD, RPVI Procedure Note Interface, Radiology Results In - 03/26/2018 8:54 PM [facility] Vascular Ultrasound Laboratory Lower Extremity Venous Report [id number]Name: PAOLA KWONG Pat.ID: [id number] .Date: 03/26/2018 Refer.MD: USHA OQUENDO MD Exam Time: 1:48:00 PM Study Type:LE Venous Height: 67in Weight: 227lb BSA: 2.14 m2 Age: 6 1965,52Y Sex: MALE Sonogrphr: Florence Eli RVT Pat. Stat.:Inpatient Room: [address] Vol: JJ, CPT - 4: 63029 Echo Event ID:[id number] Order ID: [id number] Reason for Study:LE swelling and pain, evaluation for DVT. Procedures:Colorflow, Grayscale/2D, Pulsed wave Doppler Race: Other SUMMARY: * Normal Reflux Criteria: < 0.5 seconds * Abnormal Reflux Criteria: > or equal to 0.5 seconds DUPLEX SCAN OBSERVATIONS Deep Veins Superficial Veins Right Left Right Left GSV (prox) Normal Normal CFV Normal Normal (above knee) Femoral Normal Normal GSV (dist) Normal Normal Profunda Normal Normal (below knee) Popliteal Normal Normal Gastrocs Normal Normal PT (prox) Normal Normal SSV Normal Normal PT (dist) Normal Not Visualized Peroneal Normal Normal RIGHT: There is normal compressibility with no evidence of echogenic material noted within the lumen of the visualized veins. Colorflow and Doppler signals are normal. LEFT: There is normal compressibility with no evidence of echogenic material noted within the lumen of the visualized veins. Colorflow and Doppler signals are normal. The distal posterior tibial and peroneal veins are not visualized due to dressing. PRELIMINARY FINDINGS 1. No evidence of venous thrombosis of visualized veins in bilateral lower extremities. PHYSICIAN INTERPRETATION Venous examination of the both lower extremities demonstrated no evidence of venous thrombosis in the visualized veins. Normal compressibility and augmentation of all veins visualized. Signed 03/26/2018 08:53 PM Valentín Vallejo MD, RPVI Performing Organization Address City/[facility]/Zipcode Phone Number [facility] [address] [place] [address] B natriuretic peptide (03/25/2018 3:30 AM CLAY DIGGER)Only the most recent of4 resultswithin the time period is included. BNP 194 (H) 0 - 100 pg/mL [facility] Specimen Blood Performing Organization Address City/[facility]/Zipcode Phone Number [facility] DEPARTMENT OF PATHOLOGY AND [address] [place] [address] GENOMIC MEDICINE [place] [id number] [place] [address] CBC with platelet and differential (03/24/2018 3:30 AM CLAY DIGGER)Only the most recent of11 resultswithin the time period is included. WBC 4.40 (L) 4.50 - 11.00 k/uL [facility] RBC 3.30 (L) 4.40 - 6.00 m/uL [facility] HGB 10.2 (L) 14.0 - 18.0 g/dL [facility] HCT 30.2 (L) 41.0 - 51.0 % [facility] MCV 91.5 82.0 - 100.0 fL [facility] MCH 30.9 27.0 - 34.0 pg [facility] MCHC 33.8 31.0 - 37.0 g/dL [facility] RDW - SD 44.3 37.0 - 55.0 fL [facility] MPV 13.2 8.8 - 13.2 fL [facility] Platelet count 138 (L) 150 - 400 k/uL [facility] Nucleated RBC 0.00 /100 WBC [facility] Neutrophils 50.1 39.0 - 69.0 % [facility] Lymphocytes 33.9 25.0 - 45.0 % [facility] Monocytes 8.9 0.0 - 10.0 % [facility] Eosinophils 5.9 (H) 0.0 - 5.0 % [facility] Basophils 0.7 0.0 - 1.0 % [facility] Immature granulocytes 0.5Comment: "Immature 0.0 - 1.0 % [facility] (promyelocytes, myelocytes, metamyelocytes) Specimen Blood Performing Organization Address City/State/Zipcode Phone Number [facility] DEPARTMENT OF PATHOLOGY AND [address] [place] [phone] Hepatitis C antibody (03/22/2018 4:00 AM CLAY DIGGER) Hepatitis C Ab Non-reactive Non-reactive [facility] Specimen Blood Performing Organization Address City/State/Zipcode Phone Number [facility] DEPARTMENT OF PATHOLOGY AND [address] [place] [phone] Hepatitis B core antibody total (03/22/2018 4:00 AM CLAY DIGGER) Hepatitis B core total Ab Non-reactive Non-reactive [facility] Specimen Blood Performing Organization Address City/State/Zipcode Phone Number [facility] DEPARTMENT OF PATHOLOGY AND [address] [place] [address] Hepatitis B surface antibody (03/22/2018 4:00 AM CLAY DIGGER) Hepatitis B surface Ab Non-reactive Non-reactive [facility] Specimen Blood Performing Organization Address City/[facility] Phone Number [facility] DEPARTMENT OF PATHOLOGY AND [address] [place] [phone] [place] [phone] Hepatitis B surface antigen (03/22/2018 4:00 AM CLAY DIGGER) Hepatitis B surface Ag Non-reactive Non-reactive [facility] Specimen Blood Performing Organization Address City/[facility] Phone Number [facility] DEPARTMENT OF PATHOLOGY AND [address] [place] [phone] [place] [address] Rheumatoid factor (03/22/2018 4:00 AM CLAY DIGGER)Only the most recent of2 resultswithin the time period is included. Rheumatoid factor <10 0 - 13 IU/mL [facility] Specimen Plasma specimen Performing Organization Address City/[facility] Phone Number [facility] DEPARTMENT OF PATHOLOGY AND [address] [place] [phone] [address] C3 complement component (03/22/2018 4:00 AM CLAY DIGGER) C3 complement 139 90 - 180 mg/dL [facility] Specimen Plasma specimen Performing Organization Address City/[facility] Phone Number [facility] DEPARTMENT OF PATHOLOGY AND [address] [place] [phone] [address] C4 complement component (03/22/2018 4:00 AM CLAY DIGGER) C4 complement 25 10 - 40 mg/dL [facility] Specimen Plasma specimen Performing Organization Address City/[facility] Phone Number [facility] DEPARTMENT OF PATHOLOGY AND [address] [place] [phone] [address] ANNE (03/22/2018 4:00 AM CLAY DIGGER) ANNE screen Negative Negative [facility] Specimen Blood Performing Organization Address City/[facility] Phone Number [facility] DEPARTMENT OF PATHOLOGY AND [address] [place] [phone] [address] Serum electrophoresis (03/22/2018 4:00 AM CLAY DIGGER) Protein 5.9 (L) 6.3 - 8.3 g/dL [facility] Comment: HOSPITAL [place] 4.6-7.0 g/dL 1 week 4.4-7.6 g/dL 7 months-1year5.1-7.3 g/dL 1-2 years5.6-7.5 g/dL >3 years6.0-8.0 g/dL 18-150 6.3-8.3 g/dL SPE albumin 3.57 (L) 4.00 - 5.30 g/dL [facility] SPE alpha 1 0.15 0.10 - 0.25 g/dL [facility] SPE alpha 2 0.70 0.58 - 0.84 g/dL [facility] SPE beta 0.94 0.50 - 1.10 g/dL [facility] SPE gamma 0.54 (L) 0.60 - 1.30 g/dL [facility] SPE extended See Comment [facility] interpretation Comment: HOSPITAL Total protein and albumin are decreased suggesting protein malnutrition. Gamma globulins are slightly decreased.646 SPE interpretation See CommentComment: [facility] Alethea Camacho, PhD; [facility] Mally Phillips MD; Toribio Mcgrath MD, PhD Specimen Serum Performing Organization Address City/State/[facility] Hospital[facility] Phone Number [facility] DEPARTMENT OF PATHOLOGY AND [address] [place] [address] GENOMIC MEDICINE [address] [address] Urine protein electrophoresis, 24 hour (03/21/2018 5:30 PM CLAY DIGGER) Collection start date, 03-21-18 [facility] Collection start time, 17:30 [facility] Collection stop date, 03/22/18 [facility] Collection stop time, 17:30 [facility] Hours of collection 24 [facility] Total volume, urine 2,350 mL [facility] Urine protein 103 mg/dL [facility] Urine protein 24 hr 2,421 (H) 0 - 150 mg/24hrs [facility] UPE albumin 81.7 % [facility] UPE globulin 18.3 % [facility] UPE extended See Comment [facility] interpretation Comment: HOSPITAL An abnormal 24 hour urine protein study with proteinuria of 2421 mg/24 hours. The proteinuria is in a glomerular pattern.646 UPE interpretation See CommentComment: [facility] Alethea Camacho, PhD; [facility] Mally Vasquez MD; Toribio Mcgrath MD, PhD Specimen Urine Performing Organization Address City/[facility]code Phone Number [facility] DEPARTMENT OF PATHOLOGY AND [address] [place] [phone] [place] [phone] Creatinine clearance, urine, 24 hour (03/21/2018 5:30 PM CLAY DIGGER)Only the most recent of2 resultswithin the time period is included. Collection start date, 03-21-18 [facility] Collection start time, 17:30 [facility] Collection stop date, 03/22/18 [facility] Collection stop time, 17:30 [facility] Hours of collection 24 [facility] Total volume, urine 2,350 mL [facility] Creatinine 2.74 (H) 0.70 - 1.20 mg/dL [facility] Urine creatinine 78 mg/dL [facility] Urine creatinine 1,833 mg/vol [facility] excretion [facility] Creat clearance, urine 24 46 mL/min [facility] hr calc Comment: [facility] CREATININE CLEARANCE REFERENCE RANGE: MALES 85 - 125 ML/MIN/1.73 SQ.METER FEMALES 75 - 115 ML/MIN/1.73 SQ.METER Specimen Urine Performing Organization Address [facility] Phone Number [facility] DEPARTMENT OF PATHOLOGY AND [address] [place], [place] [phone] US Renal (03/21/2018 11:18 AM CLAY DIGGER) Narrative Performed At EXAMINATION:US RENAL [facility] CLINICAL HISTORY:Renal failureacute (kidney injury) COMPARISON:None. FINDINGS: The kidneys are normal in size and echogenicity. There is no evidence of renal mass, calculi, or hydronephrosis. The right kidney measures 13.3 x 6.5 x 6.7 cm The left kidney measures 12.9 x 6.7 x 5.7 cm The urinary bladder is unremarkable. IMPRESSION: Mild-moderate renal cortical atrophy is present. [id number] Procedure Note Hm Interface, Radiology Results Incoming - 03/21/2018 1:39 PM CLAY DIGGER EXAMINATION: US RENAL CLINICAL HISTORY: Renal failure acute (kidney injury) COMPARISON: None. FINDINGS: The kidneys are normal in size and echogenicity. There is no evidence of renal mass, calculi, or hydronephrosis. The right kidney measures 13.3 x 6.5 x 6.7 cm The left kidney measures 12.9 x 6.7 x 5.7 cm The urinary bladder is unremarkable. IMPRESSION: Mild-moderate renal cortical atrophy is present. [id number] Performing Organization Address City/[facility]/Zipcode Phone Number [facility] [address] [place] [address] Urinalysis screen and microscopy, with reflex to culture (03/21/2018 6:47 AM CLAY DIGGER)Only the most recent of2 resultswithin the time period is included. Specimen site Clean catch [facility] Color, UA Yellow [facility] Appearance, UA Clear [facility] Specific gravity, UA 1.014 1.001 - 1.035 [facility] pH, UA 5.0 5.0 - 8.5 [facility] Protein, UA 3+ (A) Negative [facility] Glucose, UA 1+ (A) Negative [facility] Ketones, UA Negative Negative [facility] Bilirubin, UA Negative Negative [facility] Blood, UA Negative Negative [facility] Nitrite, UA Negative Negative [facility] Urobilinogen, UA <2.0 <2.0 [facility] Leukocyte esterase, UA Negative Negative [facility] Epithelial cells, UA <1 /HPF [facility] WBC, UA None seen 0 - 1 /HPF [facility] RBC, UA 1 0 - 5 /HPF [facility] Bacteria, UA None seen None seen [facility] Yeast, UA None seen [facility] Yeast with pseudohyphae, UA None seen [facility] Hyaline casts, UA >20 (A) /LPF [facility] Specimen Urine Performing Organization Address City/[facility] Phone Number [facility] DEPARTMENT OF PATHOLOGY AND [address] [place] [address] GENOM[address] MED[address] [address] Urine culture (03/21/2018 6:47 AM CLAY DIGGER)Only the most recent of2 resultswithin the time period is included. Urine culture SEE COMMENTComment: Bacteriuria [facility] screen negative. Performing Organization Address City/[facility] Phone Number [facility] DEPARTMENT OF PATHOLOGY AND [address] [place] [phone] [place] [phone] Thyroid stimulating hormone (03/21/2018 4:17 AM CLAY DIGGER)Only the most recent of5 resultswithin the time period is included. TSH 1.15 0.27 - 4.20 uIU/mL [facility] Specimen Plasma specimen Performing Organization Address City/[facility] Phone Number [facility] DEPARTMENT OF PATHOLOGY AND [address] [place] [phone] [place] [phone] T4, free (03/21/2018 4:17 AM CLAY DIGGER)Only the most recent of5 resultswithin the time period is included. T4, free 0.8 (L) 0.9 - 1.7 ng/dL [facility] Specimen Plasma specimen Performing Organization Address [facility] Phone Number [facility] DEPARTMENT OF PATHOLOGY AND [address] [place] [phone] [place] [phone] Lipid panel (03/21/2018 4:17 AM CLAY DIGGER)Only the most recent of5 resultswithin the time period is included. Cholesterol 165 <200 mg/dL [facility] Triglycerides 347 (H) <150 mg/dL [facility] HDL cholesterol 34 (L) >40 mg/dL [facility] LDL cholesterol 99Comment: Result obtained <100 mg/dL [facility] by direct LDL measurement [facility] Lipid panel interpretation SeeBelow [facility] Comment: HOSPITAL Total Cholesterol (mg/dL) <200 Desirable 553-350Lpthtupepr-gcpc >=240High Triglycerides (mg/dL) <150 Normal 198-439Oddjyuebir-swvz 200-499High >=500Very high HDL Cholesterol (mg/dL) <40Low (male) <40Low (female) LDL Cholesterol (mg/dL) <100 Optimal 100-129Near or above optimal 162-328Ewnwcehtti-xtwy 160-189High >=190Very high Risk Catergories that modify [...] mg/dL) Specimen Plasma specimen Performing Organization Address City/[facility] Phone Number [facility] DEPARTMENT OF PATHOLOGY AND [address] [place] [address] Troponin (03/20/2018 11:58 PM CLAY DIGGER)Only the most recent of7 resultswithin the time period is included. Troponin <0.30 0.00 - 0.30 ng/mL [facility] Comment: 0.30 - 1.49 ng/mlMay indicate increased risk of acute coronary syndrome. >=1.5 ng/mlConsistent with acute myocardial infarction. The diagnostic value of a single normal or non-diagnostic result is questionable.Serial samples at 2-6 hour intervals are required to rule out acute myocardial injury. Specimen Plasma specimen Performing Organization Address City/[facility] Phone Number [facility] DEPARTMENT OF PATHOLOGY AND [address] [place] [address] Hemoglobin A1c (03/20/2018 11:58 PM CLAY DIGGER)Only the most recent of4 resultswithin the time period is included. Hemoglobin A1C 9.1 (H) 4.0 - 5.6 % [facility] Comment: HbA1c cutoffs for diagnosing diabetes: 4.0% - 5.6%=normal 5.7% - 6.4%=increased risk for diabetes (prediabetes) >=6.5%=diabetes Goals for glycemic control (ADA 2016) < 7.0%Target for non adults with diabetes. More or less stringent targets may be appropriate for individual patients. <7.5% Target for Children and adolescents with type 1 diabetes. Specimen Blood Performing Organization Address City/[facility]/Zipcode Phone Number [facility] DEPARTMENT OF PATHOLOGY AND [address] [place] [address] GENOMIC MEDICINE [facility] [address] [place] [address] XR Chest 1 Vw Portable (03/20/2018 11:33 PM CLAY DIGGER) Narrative Performed At EXAMINATION:XR CHEST 1 VW PORTABLE [facility] CLINICAL HISTORY: Shortness of breath COMPARISON:11/27/2013 IMPRESSION: No radiographic evidence for acute cardiopulmonary process. Cardiomediastinal silhouette is within normal limits of size. No focal or confluent airspace consolidation is seen on this single AP plane to suggest acute pneumonia. No sizable pleural effusion. No pneumothorax identified. No acute osseous abnormalities are visualized. [facility]-[id number] Procedure Note Interface, Radiology Results Incoming - 03/20/2018 11:40 PM CLAY DIGGER EXAMINATION: XR CHEST 1 VW PORTABLE CLINICAL HISTORY: Shortness of breath COMPARISON: 11/27/2013 IMPRESSION: No radiographic evidence for acute cardiopulmonary process. Cardiomediastinal silhouette is within normal limits of size. No focal or confluent airspace consolidation is seen on this single AP plane to suggest acute pneumonia. No sizable pleural effusion. No pneumothorax identified. No acute osseous abnormalities are visualized. [facility]-[id number] Performing Organization Address [facility]/Zipcode Phone Number [facility] [address] [place] [address] CT Head Wo Contrast (03/20/2018 11:16 PM CLAY DIGGER)Only the most recent of2 resultswithin the time period is included. Narrative Performed At EXAMINATION: CT HEAD WO CONTRAST [facility] CLINICAL HISTORY: Strokefollow up COMPARISON:MRI 02/10/2018. TECHNIQUE: Noncontrast images of the brain were obtained from the skull base to the vertex. Both soft tissue and bone reconstruction algorithms were performed. CT scans are performed using radiation dose reduction techniques (iterative reconstruction and/or automated exposure control). Technical factors are evaluated and adjusted to ensure appropriate moderation of exposure. Automated dose management technology is applied to adjust radiation exposure while achieving a diagnostic quality image. 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 Mild generalized brain parenchymal volume loss. Nonspecific hypoattenuation of the supratentorial white matter, likely chronic microangiopathic changes. Mild cerebrovascular calcifications. The brain parenchyma is otherwise unremarkable. The alcaraz-white matter differentiation is preserved. No evidence of acute intra or extra-axial hemorrhage, mass, mass effect or acute territorial infarction. There is no acute hydrocephalus. Basal cisterns are patent. No acute soft tissue hematoma or laceration. No skull fractures or aggressive bony lesions. Paranasal sinuses and mastoid air cells are clear. Orbits are normal. IMPRESSION: No acute intracranial abnormality identified. [facility]-[id number] Procedure Note Hm Interface, Radiology Results Incoming - 03/20/2018 11:23 PM CLAY DIGGER EXAMINATION: CT HEAD WO CONTRAST CLINICAL HISTORY: Stroke follow up COMPARISON: MRI 02/10/2018. TECHNIQUE: Noncontrast images of the brain were obtained from the skull base to the vertex. Both soft tissue and bone reconstruction algorithms were performed. CT scans are performed using radiation dose reduction techniques (iterative reconstruction and/or automated exposure control). Technical factors are evaluated and adjusted to ensure appropriate moderation of exposure. Automated dose management technology is applied to adjust radiation exposure while achieving a diagnostic quality image. 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 Mild generalized brain parenchymal volume loss. Nonspecific hypoattenuation of the supratentorial white matter, likely chronic microangiopathic changes. Mild cerebrovascular calcifications. The brain parenchyma is otherwise unremarkable. The alcaraz-white matter differentiation is preserved. No evidence of acute intra or extra-axial hemorrhage, mass, mass effect or acute territorial infarction. There is no acute hydrocephalus. Basal cisterns are patent. No acute soft tissue hematoma or laceration. No skull fractures or aggressive bony lesions. Paranasal sinuses and mastoid air cells are clear. Orbits are normal. IMPRESSION: No acute intracranial abnormality identified. [facility]-[id number] Performing Organization Address City/[facility]/Zipcode Phone Number [facility] [address] [place] [address] Partial thromboplastin time, activated (03/20/2018 5:28 PM CLAY DIGGER)Only the most recent of2 resultswithin the time period is included. PTT 27.5 23.0 - 36.0 sec [facility] Comment: PTT therapeutic range for unfractionated heparin is 61.0-112.0 seconds which corresponds to Anti-Xa 0.3-0.7 U/ml. Specimen Blood Performing Organization Address City/[facility]/Zipcode Phone Number [facility] DEPARTMENT OF PATHOLOGY AND [address] [place] [address] [facility] [address] [place] [address] Prothrombin time with INR (03/20/2018 5:28 PM CLAY DIGGER)Only the most recent of2 resultswithin the time period is included. Prothrombin time 13.2 11.5 - 14.5 sec [facility] INR 1.0 [facility] Comment: HOSPITAL The International Normalized Ratio (INR) is a therapeutic monitoring tool for patients who are stable on oral anticoagulant therapy. An INR of 2.0-3.0 is suggested for deep vein thrombosis/pulmonary embolism. Specimen Blood Performing Organization Address City/State/Zipcode Phone Number [facility] DEPARTMENT OF PATHOLOGY AND [address] [place] [address] [facility] [address] [place] [address] Comprehensive metabolic panel (03/20/2018 5:28 PM CLAY DIGGER)Only the most recent of3 resultswithin the time period is included. Sodium 139 135 - 148 mEq/L [facility] Potassium 4.8 3.5 - 5.0 mEq/L [facility] Chloride 103 98 - 112 mEq/L [facility] CO2 22 (L) 24 - 31 mEq/L [facility] Anion gap 14@ANIO 7 - 15 mEq/L [facility] BUN 57 (H) 6 - 20 mg/dL [facility] Creatinine 2.49 (H) 0.70 - 1.20 mg/dL [facility] Glucose 332 (H) 65 - 99 mg/dL [facility] Calcium 8.9 8.3 - 10.2 mg/dL [facility] Protein 6.1 (L) 6.3 - 8.3 g/dL [facility] Comment: HOSPITAL 4.6-7.0 g/dL 1 week 4.4-7.6 g/dL 7 months-1year5.1-7.3 g/dL 1-2 years5.6-7.5 g/dL >3 years6.0-8.0 g/dL 18-150 6.3-8.3 g/dL Albumin 2.9 (L) 3.5 - 5.0 g/dL [facility] A/G ratio 0.9 0.7 - 3.8 [facility] Alkaline phosphatase 70 40 - 129 U/L [facility] AST 19 10 - 50 U/L [facility] ALT 19 5 - 50 U/L [facility] Total bilirubin 0.3 0.0 - 1.2 mg/dL [facility] Specimen Plasma specimen Performing Organization Address [facility] Phone Number [facility] DEPARTMENT OF PATHOLOGY AND [address] [place] [address] GENOMIC MEDICINE [facility] [address] [place] [address] ECG 12 lead (03/20/2018 5:24 PM CLAY DIGGER)Only the most recent of3 resultswithin the time period is included. Ventricular rate [address] [facility] MUSE Atrial rate [address] [facility] MUSE DC interval [address] [facility] MUSE QRSD interval [address] [facility] MUSE QT interval [address] [facility] MUSE QTC interval [address] [facility] MUSE P axis 1 29 HM MUSE QRS axis [address] [facility] MUSE T wave axis [address] [facility] MUSE EKG impression Sinus bradycardia-Right bundle branch [facility] MUSE block-Abnormal ECG-In automated comparison with ECG of 07-FEB-2018 10:01,-No significant change was found- Narrative Performed At Performing Organization Address [facility] Phone Number [facility] MUSE [address] [place] [address] XR Forearm 2 Vw Right (02/13/2018 11:25 AM CDT) Narrative Performed At EXAMINATION:XR FOREARM 2 VW RIGHT [facility] CLINICAL HISTORY:right forearm pain COMPARISON:none. IMPRESSION: 1.No displaced fractures or dislocations. IV catheter noted along the volar aspect of the forearm. [facility]-[id number] Procedure Note Interface, Radiology Results Incoming - 02/13/2018 11:44 AM CDT EXAMINATION: XR FOREARM 2 VW RIGHT CLINICAL HISTORY: right forearm pain COMPARISON: none. IMPRESSION: 1. No displaced fractures or dislocations. IV catheter noted along the volar aspect of the forearm. [facility]-[id number] Performing Organization Address [facility] Phone Number [facility] [address] [place] [address] [place] Modified Barium Swallow (02/13/2018 10:26 AM CDT) Narrative Performed At EXAMINATION:[place] MODIFIED BARIUM SWALLOW [facility] CLINICAL HISTORY:Dysphagiaunexplained history of CVA COMPARISON:None. Fluoroscopy [...] to Speech Pathology report for further details. [facility]-[id number] Procedure Note Interface, Radiology Results Incoming - [...] to Speech Pathology report for further details. [facility]-[id number] Performing Organization Address City/State/[facility] Phone Number [facility] [address] [place] [address] Cardiac mri stroke eval w contrast (02/12/2018 12:06 PM CDT) Narrative Performed At [facility] [employer] CMR Report Name:PAOLA KWONG :1965 [...] Lateral | Normal/Hyper | None ||| | [place] | Normal/Hyper | None ||| + + [...] SCAN INFO GENERAL CONTRAST AGENT TYPE:Dotarem LOT NUMBER:[id number] EXPIRATION DATE:2018-09-26 00:00:00 VOLUME ADMINISTERED:26 ml DOSAGE FOR 0.5M:0.15 mmol/kg SERUM CREATININE:1.5 sCr GFR:52.65 ml/min/1.73m^2 CREATININE DATE:2018-02-12 00:00:00 SEDATION SEDATION USED?:Yes TYPE:Lorazepam DOSE:0.5 mg ANY REACTION?:No PULSE SEQUENCES Single-Shot SSFP, IR SSFP - Single Shot, SSFP Cine, Phase Contrast Velocity Mapping, 3D MRA w and w/o contrast, Time-Resolved 3D MRA SETUP TYPE:Clinical INPATIENT:Yes LOCATION:[facility] INCOMPLETE SCAN:No REASON(S) FOR SCAN:Stroke Evaluation REFERRING PHYSICIAN:Usha Oquendo MD ATTENDING PHYSICIAN:USHA LICEA TECHNICIANS:1) Danielle CASIANO Patient Account [id number] CPT Codes 38543, 00598 ICD10 Codes G45.9 Report generated by Pre[employer], a product of [employer] Procedure Note Interface, Radiology Results In - 02/12/2018 3:08 PM CDT Lefty Johnson CMR Report Name: PAOLA KWONG : 1965 [...] Normal/Hyper | None | | | | [place] | Normal/Hyper | None | | | [...] GENERAL CONTRAST AGENT TYPE: Dotarem LOT NUMBER: [id number] EXPIRATION DATE: 2018-09-26 00:00:00 VOLUME ADMINISTERED: 26 [...] MRA SETUP TYPE: Clinical INPATIENT: Yes LOCATION: [facility] INCOMPLETE SCAN: No REASON(S) FOR SCAN: Stroke Evaluation REFERRING PHYSICIAN: Usha Oquendo MD ATTENDING PHYSICIAN: USHA LICEA TECHNICIANS: 1) Danielle CASIANO Patient Account [id number] CPT Codes 94114, 31049 ICD10 Codes G45.9 Report generated by Pre[employer], a product of [employer] Performing Organization Address City/State/Zipcode Phone Number CUP[facility] [address] [place] [address] CT Sinus Wo Contrast (02/11/2018 8:24 PM [...] on the left. IMPRESSION: No significant abnormality. [facility]-[id number] Procedure Note Interface, Radiology Results Incoming - [...] on the left. IMPRESSION: No significant abnormality. [facility]-[id number] Performing Organization Address [facility]/[employer] Phone Number [facility] [address] [place] [address] Vitamin D 25 hydroxy level (02/11/2018 4:30 AM CDT) Vitamin D, 25-hydroxy 6.5 (L) 30.0 - 150.[address] [facility] DEPARTMENT OF Comment: ng/mL PATHOLOGY AND GENOMIC [...] alternative methods. Specimen Blood Performing Organization Address [facility]/Zipcode Phone Number [facility] DEPARTMENT OF PATHOLOGY AND [address] [place], [place] [phone] [place] [address] Lipase level (02/11/2018 4:30 AM CDT) Lipase 77 (H) 13 - 60 U/L [facility] DEPARTMENT OF PATHOLOGY AND GENOMIC MEDICINE Specimen Plasma specimen Performing Organization Address City/[facility] Phone Number [facility] DEPARTMENT OF PATHOLOGY AND [address] [place], [place] [phone] [place] [address] Amylase level (02/11/2018 4:30 AM CDT) Amylase 71 28 - 100 U/L [facility] DEPARTMENT OF PATHOLOGY AND GENOMIC MEDICINE Specimen Plasma specimen Performing Organization Address [facility] Phone Number [facility] DEPARTMENT OF PATHOLOGY AND [address] [place] [address] MRI Brain Wo Contrast (02/10/2018 12:02 PM [...] recent infarct in the right posterior medulla. [id number] Procedure Note Hm Interface, Radiology Results Incoming - 02/10/2018 12:40 [...] recent infarct in the right posterior medulla. [facility]-[id number] Performing Organization Address City/State/Zipcode Phone Number [facility] [address] [facility] [place] [address] Echocardiogram complete w contrast and 3D if needed (02/09/2018 8:20 AM CDT) Narrative Performed At [facility] Echocardiography Report [address], [address], [place] [address] Pat.Name:PAOLA KWONG.ID:[id number] .Date: 02/09/2018Refer.MD:MILTON ELLINGTON MD Exam Time: 7:43:00 AMStudy Type:Routine Echo Height:67inBSA: 1.97 m2 DOBAge:1965,52YSex: MALE BP:127/63HR: 68 bpm Sonogrphr: Rosemary Slater RDCS, RVTPat. Stat.:Inpatient Room:[address] Study Status:Final Echo Event ID:[id number] Order ID:[id number] Reason for Study:Stroke History / Clinical:Chest Pain, Diabetes, Hyperlipidemia, Hypertension, Cirrhosis, [place], Infectious Viral Hepatitis Procedures:2D Echo, Colorflow Doppler, [...] PA systolic pressure. MEASUREMENTS: 2D Parasternal Long [place] LVOT 2.2 cmLA Ds4.2 cm LVIDd5 cmIndex2.5 cm/m Ao An2.5 cm LVIDs2.8 cmAo Rtd 3.4 cm Index1.7 cm/m LV%fs 44 % LV Vtxw653.4 g(122-174) IVSd 1 cmLVM Index 98.7 g/m2 LVPWd1.1 cmRWT0.4 LA Sng Plane LA Area 24.3 cm2(8.8-23.4) LA Vol78.5 ml Index39.8 ml/m LA LngAx 6.5 cm DOPPLER LVOT Stroke Vol LVOT 2.2 cmLVOT CO4.9 l/min LVOT TVI21.7 cmLVOT CI2.5 l/m/m2 LVOT Tm382 zbuvMN51 bpm LVOT SV 82.6 ml Signed 02/09/2018 02:05 PM Tulio Daniels M.D. Procedure Note Interface, Radiology Results In - 02/09/2018 2:05 PM CDT Echocardiography Report [address] [address] Pat.Name: PAOLA KWONG Rebecca.ID: [id number] .Date: 02/09/2018 Refer.MD: MILTON ELLINGTON MD Exam Time: 7:43:00 AM Study Type:Routine Echo Height: 67in BSA: 1.97 m2 Age: 6 1965,52Y Sex: MALE BP: 127/63 HR: 68 bpm Sonogrphr: Rosemary Slater, RDCS, RVT Pat. Stat.:Inpatient Room: [address] Study Status:Final Echo Event ID:[id number] Order ID: [id number] Reason for Study:Stroke History / Clinical:Chest Pain, Diabetes, Hyperlipidemia, Hypertension, Cirrhosis, LA, Infectious Viral Hepatitis Procedures:2D Echo, Colorflow Doppler, [...] PA systolic pressure. MEASUREMENTS: 2D Parasternal [place] LVOT 2.2 cm LA Ds 4.2 cm [...] PM Tulio Daniels M.D. Performing Organization Address [facility] Phone Number [facility] [address] [place] [phone] Glucose level (02/08/2018 8:33 PM CDT) Glucose 502 (HH) 65 - 99 mg/dL [facility] DEPARTMENT OF PATHOLOGY AND GENOMIC MEDICINE Specimen Plasma specimen Performing Organization Address [facility] Phone Number [facility] DEPARTMENT OF PATHOLOGY AND [address] [place] [address] GENOMIC [facility] Potassium level (02/08/2018 3:27 PM CDT) Potassium 4.3 3.5 - 5.0 mEq/L [facility] DEPARTMENT OF PATHOLOGY AND GENOMIC MEDICINE Specimen Plasma specimen Performing Organization Address [facility] Phone Number [facility] DEPARTMENT OF PATHOLOGY AND [address] [place] [address] GENOMIC MEDICINE Magnesium level (02/08/2018 3:27 PM CDT) Magnesium 2.0 1.6 - 2.6 mg/dL [facility] DEPARTMENT OF PATHOLOGY AND GENOMIC MEDICINE Specimen Plasma specimen Performing Organization Address [facility] Phone Number [facility] DEPARTMENT OF PATHOLOGY AND [address] [place] [address] [facility] MEDICINE MRI Lumbar Spine Wo Contrast (02/08/2018 9:03 AM CDT) Narrative Performed At EXAMINATION:MRI LUMBAR SPINE WO CONTRAST HM [facility] CLINICAL HISTORY:sensory levelsuspect compression COMPARISON:None. FINDINGS: [...] bilateral foraminal narrowing. No central canal narrowing. [facility]-[id number] Procedure Note Interface, Radiology Results Incoming - [...] bilateral foraminal narrowing. No central canal narrowing. [facility]-[id number] Performing Organization Address City/State/Zipcode Phone Number [facility] [address] [place] [address] MRI Thoracic Spine Wo Contrast (02/08/2018 8:49 [...] or foraminal narrowing in the thoracic spine. [facility]-[id number] Procedure Note Hm Interface, Radiology Results Incoming [...] or foraminal narrowing in the thoracic spine. [facility]-[id number] Performing Organization Address City/State/Zipcode Phone Number [facility] [address] [place] [address] MRI Cervical Spine Wo Contrast (02/08/2018 8:30 [...] nerve roots. No significant spinal canal stenosis. [facility]-[id number] Procedure Note [facility], Radiology Results - 02/08/2018 9:06 AM CDT EXAMINATION: MRI [...] nerve roots. No significant spinal canal stenosis. [facility]-[id number] Performing Organization Address City/State/Zipcode Phone Number [facility] [address] [place] [address] Urine drugs of abuse screen (02/08/2018 1:00 AM CDT) Amphetamine screen, urine Negative [facility] DEPARTMENT OF PATHOLOGY AND GENOMIC MEDICINE Barbiturate screen, urine Negative [facility] DEPARTMENT OF PATHOLOGY AND GENOMIC MEDICINE Benzodiazepine screen, Negative [facility] DEPARTMENT OF urine PATHOLOGY AND GENOMIC MEDICINE Cannabinoid screen, urine Negative [facility] DEPARTMENT OF PATHOLOGY AND GENOMIC MEDICINE Cocaine screen, urine Negative [facility] DEPARTMENT OF PATHOLOGY AND GENOMIC MEDICINE Methadone metabolite Negative [facility] DEPARTMENT OF (EDDP), urine PATHOLOGY AND GENOMIC MEDICINE Opiates screen, urine Negative [facility] DEPARTMENT OF PATHOLOGY AND GENOMIC MEDICINE Oxycodone screen, urine Negative [facility] DEPARTMENT OF PATHOLOGY AND GENOMIC MEDICINE Phencyclidine screen, urine Negative [facility] DEPARTMENT OF PATHOLOGY AND GENOMIC MEDICINE Tricyclic screen, urine Negative [facility] DEPARTMENT OF Comment: PATHOLOGY AND GENOMIC Drug screen minimum concentration of detectability MEDICINE Njfyiyvoywsi4184 ng/mL Barbiturates 200 ng/mL Spolookebavhobl147 ng/mL Emtzofp370 ng/mL Hhyufjwmb958 ng/mL Hpoulgs973 ng/mL Zoinnfqtc547 ng/mL Phencyclidine 25 ng/mL Nucpbrjzmfga08 ng/mL Ghnttlrmgz6858 ng/mL Negative test results indicates presumptive evidence of lack of clinically significant drug concentration in this urine specimen. Positive test results are presumptive evidence of clinically significant drug concentration in this urine specimen. Testing performed for medical purposes only. Specimen Urine Performing Organization Address [facility] Hospitalco[facility] Phone Number [facility] DEPARTMENT OF PATHOLOGY AND [address] [place] [address] Sedimentation rate (02/08/2018 1:00 AM CDT) Sedimentation rate 48 (H) 0 - 10 mm/hr [facility] DEPARTMENT OF PATHOLOGY AND GENOMIC MEDICINE Specimen Blood Performing Organization Address [facility] Phone Number [facility] DEPARTMENT OF PATHOLOGY AND [address] [place] [address] Syphilis treponemal IgG (02/07/2018 9:55 PM CDT) Syphilis treponemal IgG Non-reactiveComment: Non-reactive [facility] DEPARTMENT OF Non-reactive: No PATHOLOGY AND GENOMIC serological evidence of MEDICINE Syphilis infection Specimen Serum Performing Organization Address [facility] Hospital[facility] Phone Number [facility] DEPARTMENT OF PATHOLOGY AND [address] [place] [address] HIV Ag/Ab combination (02/07/2018 9:55 PM CDT) HIV Ag/Ab combination Non-reactive Non-reactive [facility] DEPARTMENT OF PATHOLOGY AND GENOMIC MEDICINE Specimen Blood Performing Organization Address [facility] Phone Number [facility] DEPARTMENT OF PATHOLOGY AND [address] [place] [address] Homocystine, plasma (02/07/2018 9:54 PM CDT) Homocysteine 16.5 (H) 0.0 - 15.0 umol/L [facility] DEPARTMENT OF Comment: PATHOLOGY AND GENOMIC The risk for coronary vascular disease increases progressively MEDICINE with homocysteine concentration.A 3.4 times greater risk is associated with a homocysteine concentration of greater than 15.8 umol/L as compared to a concentration below 14.1 umol/L. Specimen Plasma specimen Performing Organization Address [facility] Phone Number [facility] DEPARTMENT OF PATHOLOGY AND [address] [place] [address] C-reactive protein (02/07/2018 9:54 PM CDT) CRP 0.39 0.00 - 0.50 mg/dL [facility] DEPARTMENT OF PATHOLOGY AND [facility] Specimen Plasma specimen Performing Organization Address [facility] Phone Number [facility] DEPARTMENT OF PATHOLOGY AND [address] [place] [address] Folate level (02/07/2018 9:54 PM CDT) Folate 18.4 4.8 - 24.2 ng/mL [facility] DEPARTMENT OF PATHOLOGY AND [facility] Specimen Serum Performing Organization Address [facility] Phone Number [facility] DEPARTMENT OF PATHOLOGY AND [address] [place] [address] Vitamin B12 level (02/07/2018 9:54 PM CDT) Vitamin B12 687 211 - 946 pg/mL [facility] DEPARTMENT OF PATHOLOGY Comment: AND [facility] Significant overlap exists between normal and deficiency states. However, most patients with deficiencies will have Serum B12 <200 pg/mL. Specimen Serum Performing Organization Address [facility] Phone Number [facility] DEPARTMENT OF PATHOLOGY AND [address] [place] [address] MRI Face Wo Contrast (02/07/2018 7:19 PM [...] IMPRESSION: Limited examination demonstrating no acute abnormality. [facility]-[id number] Procedure Note Interface, Radiology Results 02/07/2018 7:29 PM CDT EXAMINATION: MRI FACE [...] IMPRESSION: Limited examination demonstrating no acute abnormality. [facility]-[id number] Performing Organization Address [facility] Phone Number [facility] [address] [place] [address] MRA Neck Wo Contrast (02/07/2018 7:19 PM [...] cervical vertebral arteries. IMPRESSION: No significant abnormality. [facility]-[id number] Procedure Note [facility], Radiology Results 02/07/2018 7:25 PM CDT EXAMINATION: MRA NECK [...] cervical vertebral arteries. IMPRESSION: No significant abnormality. [facility]-[id number] Performing Organization Address [facility] Phone Number [facility] [address] [place] [address] MRA Head Wo Contrast (02/07/2018 6:53 PM [...] to that seen on the prior study. [facility]-[id number] Procedure Note Interface, Radiology Results Incoming - [...] to that seen on the prior study. [facility]-[id number] Performing Organization Address City/State/Zipcode Phone Number [facility] [address] [place] [address] C difficile toxin (02/07/2018 6:00 PM CDT) Clostridium difficile No Clostridium difficle toxin present [facility] DEPARTMENT OF toxin Comment: PATHOLOGY AND GENOMIC Specimen Information MEDICINE Specimen Source: Stool Specimen Site: Nonpreserved Specimen Stool - Nonpreserved Performing Organization Address City/State/Zipcode Phone Number [facility] DEPARTMENT OF PATHOLOGY AND [address] [place] [address] [facility] CTA Head W Wo Contrast (02/07/2018 2:25 PM CDT) Narrative Performed At EXAMINATION:CT ANGIOGRAM HEAD W WO CONTRAST [facility] CLINICAL HISTORY:ataxia COMPARISON:Head CT on 02/07/2018. TECHNIQUE: [...] is diffuse moderate stenosis of right P1-P3 GINNER HELPER. There is normal contrast enhancement with no significant stenosis or occlusion along bilateral vertebral arteries, basilar artery, cerebellar arteries, and left GINNER HELPER. The vertebral arteries are codominant. The posterior communicating arteries are not well-visualized. There is no evidence of cerebral aneurysm in the proximal [place] of [place]. There is no evidence of perfusion-weighted defect on CTA source images. IMPRESSION: 1. Diffuse moderate stenosis of right P1-P3 GINNER HELPER. No significant stenosis or occlusion in remaining proximal [place] of [place]. 2. No evidence of perfusion-weighted defect on CTA source images. [facility]-[id number] Procedure Note Interface, Radiology Results Incoming - [...] is diffuse moderate stenosis of right P1-P3 GINNER HELPER. There is normal contrast enhancement with no significant stenosis or occlusion along bilateral vertebral arteries, basilar artery, cerebellar arteries, and left GINNER HELPER. The vertebral arteries are codominant. The posterior communicating arteries are not well-visualized. There is no evidence of cerebral aneurysm in the proximal [place]. There is no evidence of perfusion-weighted defect on CTA source images. IMPRESSION: 1. Diffuse moderate stenosis of right P1-P3 GINNER HELPER. No significant stenosis or occlusion in remaining proximal [place] of [place]. 2. No evidence of perfusion-weighted defect on CTA source images. [facility]-[id number] Performing Organization Address City/State/Zipcode Phone Number [facility] [address] [place] [address] CTA Neck W Wo Contrast (02/07/2018 2:12 PM CDT) Narrative Performed At EXAMINATION:CT ANGIOGRAM NECK W WO CONTRAST [facility] CLINICAL H[facility]ORY:ataxia COMPARISON:None. TECHNIQUE: Neck [...] No significant carotid or vertebral artery stenosis. [facility]-[id number] Procedure Note [facility], Radiology Results Incoming - 02/07/2018 2:22 PM [...] No significant carotid or vertebral artery stenosis. [facility]-[id number] Performing Organization Address City/[facility] Hospital[facility] Phone Number [facility] [address] [place] [phone] Blood culture, aerobic & anaerobic (02/07/2018 11:15 AM CDT)Only the most recent of2 resultswithin the time period is included. Blood culture isolate No growth after 5 days of incubation. [facility] DEPARTMENT OF Comment: PATHOLOGY AND GENOMIC Specimen Information MEDICINE Specimen Source: Blood Specimen Site: Hand, left Specimen Blood - Hand, left Performing Organization Address [facility] Phone Number [facility] DEPARTMENT OF PATHOLOGY AND [address] [place] [address] GENOMIC MEDICINE ECG ED Preliminary Interpretation - NOT AN ORDER (02/07/2018 10:49 AM CDT) Narrative Performed At Derrek Mcgee DO 02/07/20184:02 PM ECG ED Preliminary Interpretation - Not an Order Performed by: DERREK MCGEE Authorized by: DERREK MCGEE ECG reviewed by ED Physician in the absence of a network development coordinator: yes Interpretation: Interpretation: abnormal Rate: ECG rate:59 ECG rate assessment: bradycardic Rhythm: Rhythm: sinus bradycardia QRS: QRS axis:Normal QRS intervals:Normal Conduction: Conduction: abnormal Abnormal conduction: complete RBBB ST segments: ST segments:Normal T waves: T waves: normal Beta hydroxybutyrate (02/07/2018 10:30 AM CDT) Beta hydroxybutyrate 0.14 0.02 - 0.27 mmol/L [facility] DEPARTMENT OF PATHOLOGY AND GENOMIC MEDICINE Specimen Serum Performing Organization Address [facility] Phone Number [facility] DEPARTMENT OF PATHOLOGY AND [address] [place] [address] GENOMIC MEDICINE Echocardiogram complete w contrast and 3D if needed (07/12/2017 9:04 AM CDT) Narrative Performed At [facility] Echocardiography Report [address] [facility], [facility] [address], [place] [address] Pat.Name:PAOLA KWONG.ID:[id number] .Date: 07/12/2017 Refer.MD:MILTON ELLINGTON MD Exam Time: 7:25:00 AMStudy Type:Routine Echo Height:67inWeight: 188lb BSA: 1.97 m2 DOBAge:1965,51Y Sex: MALEBP:135/74 Sonogrphr: Suad Greco, RD, RVT Pat. Stat.:Inpatient Room:[address] Study Status:Final Echo Event ID:[id number] Order ID:[id number] Reason for Study:Chest pain, SOB History / Clinical:Chest Pain, Diabetes, Hyperlipidemia, Hypertension, Cirrhosis, [place], Infectious Viral Hepatitis Procedures:2D Echo, Colorflow Doppler [...] PA systolic pressure. MEASUREMENTS: 2D Parasternal Long [place] LVOT 2.1 cmLA Ds4.5 cm LVIDd4 cmIndex2 cm/m Ao An2 cm LVIDs2.3 cmAo Rtd 3.3 cm Index1.7 cm/m LV%fs 43.3 % LV Qdux731.1 g(122-174) IVSd 1.3 cmLVM Index 98.5 g/m2 LVPWd1.3 cmRWT0.7 LA Sng Plane LA Area 23.8 cm2(8.8-23.4) LA Vol77.6 ml Index39.4 ml/m LA LngAx 6 cm DOPPLER LVOT Stroke Vol LVOT 2.1 cmLVOT CO4.3 l/min LVOT TVI19.2 cmLVOT CI2.2 l/m/m2 LVOT Tm351 dhcrAI47 bpm LVOT SV 66.6 ml Signed 07/12/2017 02:24 PM Zain Carmona M.D. Procedure Note Interface, Radiology Results In - 07/12/2017 2:24 PM CDT Echocardiography Report [address] [place] [address] Pat.Name: PAOLA KWONG Pat.ID: [id number] .Date: 07/12/2017 Refer.MD: MILTON ELLINGTON MD Exam Time: 7:25:00 AM Study Type:Routine Echo Height: 67in Weight: 188lb BSA: 1.97 m2 Age: 6 1965,51Y Sex: MALE BP: 135/74 Sonogrphr: Suad Greco RDCS, RVT Pat. Stat.:Inpatient Room: [address] Study Status:Final Echo Event ID:[id number] Order ID: [id number] Reason for Study:Chest pain, SOB History / Clinical:Chest Pain, Diabetes, Hyperlipidemia, Hypertension, Cirrhosis, LA, Infectious Viral Hepatitis Procedures:2D Echo, Colorflow Doppler [...] PA systolic pressure. MEASUREMENTS: 2D Parasternal Long [place] LVOT 2.1 cm LA Ds 4.5 cm [...] PM Zain Carmona M.D. Performing Organization Address [facility] Hospitalcode Phone Number [facility] [address] [place] [address] Estimated GFR (07/12/2017 4:00 AM CDT)Only the most recent of2 resultswithin the time period is included. GFR Non Af Amer 54 (A) mL/min/1.[address] [facility] DEPARTMENT OF PATHOLOGY AND GENOMIC MEDICINE GFR Af Amer 65 mL/min/1.[address] [facility] DEPARTMENT OF Comment: PATHOLOGY AND GENOMIC [...] Americans. Specimen Plasma specimen Performing Organization Address City/[facility]/Zipcode Phone Number [facility] DEPARTMENT OF PATHOLOGY AND [address] [place] [address] [facility] MEDICINE Cv ecg exercise stress (no imaging) (07/11/2017 2:44 PM CDT) Resting HR 77 [facility] MUSE Resting BP 166 [facility]USE Peak MET Achieved 1.0 [facility] MUSE Protocol Name REGADENO [facility] MUSE Time in Exercise Phase 00:01:00 [facility] Max Systolic BP 178 [facility] Max Diastolic BP 95 [facility] Max Heart Rate 85 [facility] Max Predicted Heart Rate [address] [facility] [facility] MUSE Target HR Formula (220 - Age)*100% [facility] MUSE Test Indication chest pain [facility] MUSE Stress Test Impression Waveform interpreted in report [facility] MUSE associated with image study. No interpretation is provided as part of this Stress ECG report.-Electronically Signed By Isabelle BOSS, Sreedhar Brown ([id number]), proposal editor Kailey Porras ([id number]) on 07/11/2017 2:32:43 PM Target HR 145.[address] [facility] MUSE Performing Organization Address City/State/Zipcode Phone Number [facility] MUSE [address] [place] [address] Myocardial perfusion (07/11/2017 2:44 PM CDT) Narrative Performed At [facility] Nuclear Cardiology and Cardiac CT [address] [place] [id number] Myocardial Perfusion Imaging Report Stress ECG tracings are available in MUSE, EPIC and [employer] All ECG interpretations are included in this report Pat.Name:PAOLA KWONG Pat.ID:[id number] .Date: 07/11/2017 Refer.MD:MILTON ELLINGTON MD Exam Time: 12:58:00 PM Study Type:Myocardial Perfusion Imaging Height:66inBSA: 1.95 m2 DOBAge:1965,51YSex: MALE BP:162/82HR: 77 bpm HCT: 29.3 % Nuclear Tech:ZENY SpencerMT/Leatha MOURAMT,ARRT Nuclear Event ID:[id number] Order ID:[id number] History / Clinical:Coronary artery disease, Diabetes, Hyperlipidemia, Hypertension, S/P PCI 07/2007, Liver cirrhosis/Hepatitis C Procedures:Stress only Race:C Risk Factors:Angina, Diabetes, Cardiovascular Disease, Hyperlipidemia, Hypertension Clinical Symptoms:Regadenoson Surgery: Serum K+ Date,3.7 on 07/11/16/, Troponin I Date,1)NEG on 07/11/17/ 2)/ 3)/, BUN/Creatinine Date,23/1.4 on 07/11/17/ Medications:VICKI/ARB, Atenolol, Beta ramy, Lipitor, [...] PM CDT Nuclear Cardiology and Cardiac CT [address] [address] Myocardial Perfusion Imaging Report Stress ECG tracings are available in [employer], [employer] and [employer] All ECG interpretations are included in this report Pat.Name: PAOLA KWONG Pat.ID: [id number] .Date: 07/11/2017 Refer.MD: MILTON ELLIGNTON MD Exam Time: 12:58:00 PM Study Type:Myocardial Perfusion Imaging Height: 66in BSA: 1.95 m2 Age: 6 1965,51Y Sex: MALE BP: 162/82 HR: 77 bpm HCT: 29.3 % Nuclear Tech:NIDHI Spencer/Leatha MOURAMT,[facility] Nuclear Event ID:[id number] Order ID: [id number] History / Clinical:Coronary artery disease, Diabetes, Hyperlipidemia, [...] PM Sreedhar Walton MD Performing Organization Address City/[facility] Phone Number [facility] [address] [place] [address] T3 (07/11/2017 2:43 AM CDT) T3 89 80 - 200 ng/dL [facility] DEPARTMENT OF PATHOLOGY AND GENOMIC MEDICINE Specimen Plasma specimen Performing Organization Address [facility] Phone [facility] DEPARTMENT OF PATHOLOGY AND [address] [place] [address] GENOMIC MEDICINE after 04/20/2017 Insurance Payer Benefit Plan / Group Subscriber ID Type Phone Address PENDING MEDICAID PENDING DISABILITY MEDICAID xxxxxxxxx Medicaid COVERAGE ([address]) [address] [place] [id number] Advance Directives Patient has advance care planning documents, and code status on file. For more information, please contact:Lefty Johnson[address] [place] [address] Code Status Date Activated Date Inactivated Comments Full Code 03/21/2018 12:32 AM 03/31/2018 4:16 PM Code Status decision reached by: Patient Full Code 02/08/2018 12:15 PM 02/16/2018 8:08 PM Code Status decision reached by: Patient Full Code 07/11/2017 8:58 AM 07/12/2017 5:04 PM Code Status decision reached by: Patient Full Code 12/01/2016 10:48 PM 12/03/2016 11:22 PM Code Status decision reached by: Patient
[2018-04-21 11:52] LABS: Arterial Blood Carboxyhemoglob 2.2 % (0-1.5); Blood Gas Oxyhemoglobin 92.7 % (94-97); Blood O2 Saturation 96.5 % (92-98.5)
[2018-04-21 11:55] LABS: Protime INR 0.92
[2018-04-21 11:57] LABS: Absolute Lymphocytes (CBC) 0.7 K/uL (0.7-4.9); Absolute Monocytes 0.3 K/uL (0.1-1.3); Absolute Neutrophil 3.4 K/uL (1.8-8.0); Basophils % 0.6 % (0-1.3); Eosinophils % 2.2 % (0-4.4); Hematocrit 35.1 % (39.6-49.0); Lymphocytes % 14.8 % (15.3-44.8); MPV 11.8 fL (7.6-11.3); Monocytes % 7.5 % (3.3-12.3); RBC Red Blood Cell Count 3.84 M/uL (4.33-5.43)
[2018-04-21] MEDS ORDERED: NA CHLORIDE 0.9% 2,000 ML ONE (11:58)
[2018-04-21] MEDS ORDERED: INSULIN -REGULAR HUMAN 50 UNIT/0.5 ML ML ONE (11:58)
[2018-04-21] MEDS ORDERED: PANTOPRAZOLE 40 MG INJ ONE (11:58)
[2018-04-21] MEDS ORDERED: ONDANSETRON 4 MG/2 ML VIAL ONE (11:58)
[2018-04-21] MEDS ORDERED: FOLIC ACID 1 MG, MULTIVITAMINS INJ 10 ML, THIAMINE HCL 100 MG in NA CHLORIDE 0.9% 1,000 ML IV ONE (12:00)
--- NOTE | 2018-04-21 12:04 | RAD REPORT ---
EXAM DESCRIPTION: Noah Single View04/21/2018 11:46 am CLINICAL HISTORY: Abdominal pain COMPARISON: none FINDINGS: The lungs appear clear of acute infiltrate. The heart is normal size IMPRESSION: No acute abnormalities displayed
[2018-04-21 12:47] LABS: ALT/SGPT 22 U/L (12-78); AST/SGOT 13 U/L (15-37); Albumin 2.9 g/dL (3.4-5.0); Alkaline Phosphatase 109 U/L (45-117); BUN Blood Urea Nitrogen 94 mg/dL (7-18); Bilirubin Direct 0.1 mg/dL (0-0.2); Bilirubin Total 0.3 mg/dL (0.2-1.0); Lipase 868 U/L (73-393); Magnesium 2.4 mg/dL (1.8-2.4); NT PRO-BNP 202 pg/mL (<125); Potassium 5.5 mmol/L (3.5-5.1); Protein, Total 6.7 g/dL (6.4-8.2); Troponin (Emerg Dept Use Only) < 0.02 ng/mL (0.0-0.045)
[2018-04-21 12:50] LABS: Bicarbonate 13 mmol/L (21-32); Sodium Level 119 mmol/L (136-145)
[2018-04-21 12:51] LABS: Glucose Level 1020 mg/dL (74-106)
[2018-04-21] MEDS ORDERED: INSULIN -REGULAR HUMAN 100 UNIT in NA CHLORIDE 0.9% 100 ML IV SCH (13:00)
--- NOTE | 2018-04-21 14:54 | RAD REPORT ---
EXAM DESCRIPTION: CT - Chest Abd Pelvis Wo Con - 04/21/2018 2:28 pm CLINICAL HISTORY: Chest and abdominal pain. Diarrhea COMPARISON: February CT abdomen TECHNIQUE: Computed axial tomography of the chest, abdomen and pelvis was obtained. Oral contrast wa s given. IV contrast was not requested. All CT scans are performed using dose optimization technique as appropriate and may include automated exposure control or mA/KV adjustment according to patient size. FINDINGS: The evaluation of mediastinum, catherine, vessels and solid organs is limited secondary to the lack of IV contrast administration No mediastinal or hilar lymphadenopathy is seen. A pleural effusion is not present. A pericardial effusion is not seen. A lung consolidation is not present. Subsegmental atelectasis right lower lobe. Liver has a mildly nodular contour with prominence of the caudate and left lobes compatible with cirr hosis. Spleen, pancreas, adrenals and kidneys appear grossly normal There is no evidence of diverticulitis. Appendix is normal IMPRESSION: No acute significant abnormality
--- NOTE | 2018-04-21 14:59 | ER ---
Nurse's Notes [facility] Name: Wero Kwong Sr Age: 52 yrs Sex: Male : 1965 Arrival Date: 04/21/2018 Time: 11:00 Bed 17 Private MD: Guido Pettit S Diagnosis: Other specified diabetes mellitus with ketoacidosis;Acute kidney failure, unspecified;Diarrhea, unspecified Presentation: 04/21 11:04 Presenting complaint: EMS states: Dark tarry stools for several days, with weakness sg starting today, no neuro deficits noted per EMS, reports pt having hx of CVA in the past. Transition of care: patient was not received from another setting of care. Onset of symptoms was April 21, 2018. Risk Assessment: Do you want to hurt yourself or someone else? Patient reports no desire to harm self or others. Initial Sepsis Screen: Does the patient meet any 2 criteria? No. Patient's initial sepsis screen is negative. Does the patient have a suspected source of infection? No. Patient's initial sepsis screen is negative. Care prior to arrival: Medication(s) given: Normal saline infusion, 500 mL, IV initiated. 20 GA, unable to obtain FSBG per EMS. 11:04 Method Of Arrival: EMS: [facility] sg 11:04 Acuity: [facility]IA DEL ROS[facility]IO 2 sg Historical: - Allergies: 11:06 Codeine; sg - PMHx: 11:06 CAD; CVA; Diabetes - NIDDM; High Cholesterol; Hypertension; Myocardial infarction; sg neuropathy; - PSHx: 11:06 Heart stents; Knee surgery; Cholecystectomy; sg - Immunization history:: Adult Immunizations not up to date. - Social history:: Smoking status: unknown. - Ebola Screening: : Patient negative for fever greater than or equal to 101.5 degrees Fahrenheit, and additional compatible Ebola Virus Disease symptoms Patient denies exposure to infectious person Patient denies travel to an Ebola-affected area in the 21 days before illness onset No symptoms or risks identified at this time. Screenin:25 Abuse screen: Denies threats or abuse. Denies injuries from another. Nutritional sg screening: No deficits noted. Tuberculosis screening: No symptoms or risk factors identified. Never had TB. Fall Risk None identified. Assessment: 11:25 General: Appears in no apparent distress. well groomed, well developed, well nourished, sg Behavior is cooperative, appropriate for age, quiet. Neuro: Level of Consciousness is awake, obeys commands, confused, Oriented to person, situation, Moves all extremities. Speech is slurred, Facial symmetry appears normal. Cardiovascular: Heart tones S1 S2 present Capillary refill is brisk in bilateral fingers Patient's skin is warm and dry. Chest pain is denied. Respiratory: Airway is patent Respiratory effort is even, unlabored, Respiratory pattern is regular, symmetrical, Breath sounds are clear. GI: Abdomen is round non-distended, Bowel sounds present X 4 quads. Reports bloody stool, , black tarry. : No signs and/or symptoms were reported regarding the genitourinary system. EENT: No signs and/or symptoms were reported regarding the EENT system. Derm: Skin is pink, warm \T\ dry. Skin temperature is cool. Musculoskeletal: No signs and/or symptoms reported regarding the musculoskeletal system. 12:55 Reassessment: Patient appears in no apparent distress at this time. Altagracia GONZALES notified sg of pt VS AND FSBG, awaiting new orders at this time. 13:40 Reassessment: Patient appears in no apparent distress at this time. Patient and/or sg family updated on plan of care and expected duration. Pain level reassessed. Patient states symptoms have not improved. 14:40 Reassessment: Patient appears in no apparent distress at this time. Patient and/or sg family updated on plan of care and expected duration. Pain level reassessed. pt assisted to bedside commode, diarrhea BM noted, pt cleaned up, placed in new brief, linen changed, pt assisted back into bed, SRX2, call light within reach, bed in low and locked position, pt placed back to monitors, IV fluids resumed, will continue to monitor Patient states symptoms have not improved. 15:40 Reassessment: Patient appears in no apparent distress at this time. FSBG obtained with sg reading greater than 500, a serum glucose level has been collected and sent to the lab, awaiting lab result at this time, adjustment to the insulin drip rate has been increased, see EMAR, pt remains in bed at this time, reports feeling drowsy, at bedside evaluating pt will continue to monitor. 16:40 Reassessment: Patient appears in no apparent distress at this time. pt assisted to sg bedside commode, diarrhea BM noted, pt cleaned up, placed in new brief, linen changed, pt assisted back into bed, SRX2, call light within reach, bed in low and locked position, pt placed back to monitors, IV fluids resumed, will continue to monitor Patient states symptoms have not improved. 17:30 Reassessment: Patient appears in no apparent distress at this time. Patient and/or sg family updated on plan of care and expected duration. Pain level reassessed. awaiting a bed assignment at this time, pt spouse at bedside with pt sons at this time, pt is aa\T\ox3 at this time, but continues to have episodes of confusion, is easily re oriented Patient states symptoms have not improved. 18:20 Reassessment: pt updated would like the ICU admission orders initiated at this time, IV fluids changed as ordered in [employer], pt tolerating well at this time. 18:40 Reassessment: Patient appears in no apparent distress at this time. Patient and/or sg family updated on plan of care and expected duration. Pain level reassessed. pt assisted to bedside commode, diarrhea BM noted, pt cleaned up, placed in new brief, linen changed, pt assisted back into bed, SRX2, call light within reach, bed in low and locked position, pt placed back to monitors, IV fluids resumed, will continue to monitor Patient states symptoms have not improved. 19:05 General: Appears in no apparent distress. Behavior is cooperative, appropriate for age. ea Pain: Denies pain. Neuro: Level of Consciousness is awake, obeys commands, confused, Oriented to person, Moves all extremities. Speech is slurred, Facial symmetry appears normal. Cardiovascular: Heart tones S1 S2 present Patient's skin is warm and dry. Respiratory: Airway is patent Respiratory effort is even, unlabored, Respiratory pattern is regular, symmetrical, Breath sounds are clear bilaterally. GI: Abdomen is round non-distended, Bowel sounds present X 4 quads. Derm: Skin is pink, warm \T\ dry. 20:30 Reassessment: Patient and/or family updated on plan of care and expected duration. Pain ea level reassessed. Pt alert and oriented to self. Respirations even and unlabored, chest expansions even and symmetrical. No s/s of pain or discomfort noted at this time. Pt transferred to ICU via stretcher per nurse. Pt remains on monitor and IV fluids. Tolerating well. Vital Signs: 11:06 BP 92 / 42; Pulse 110; Resp 17; Temp 97.1; Pulse Ox 97% on R/A; Weight 111.13 kg (R); sg Pain 6/10; 12:06 BP 115 / 72; Pulse 77 MON; Resp 17; Pulse Ox 97% on R/A; sg 12:52 BP 92 / 40; Pulse 79 MON; Resp 17 S; Pulse Ox 99% on R/A; sg 14:45 BP 90 / 48; Pulse 74; Resp 21; Temp 97.1(TE); Pulse Ox 99% ; mh5 16:19 BP 93 / 49; Pulse 76; Resp 20; Temp 97.9; Pulse Ox 100% ; mh5 17:52 BP 76 / 56; Pulse 68; Resp 20; Temp 96(TE); Pulse Ox 100% ; wj1 18:15 BP 88 / 50; Pulse 72; Resp 24; Pulse Ox 100% on R/A; sg 19:00 BP 88 / 56; Pulse 80; Resp 22; Pulse Ox 99% ; ea 20:15 BP 100 / 60; Pulse 78; Resp 20; Temp 98; Pulse Ox 99% ; ea ED Course: 11:00 Patient arrived in ED. sg 11:00 Arm band placed on. sg 11:01 Guido Pettit MD is Private Physician. sg 11:05 Triage completed. sg 11:07 Loki Miranda, RN is Primary Nurse. sg 11:18 EKG done, by technology risk intern. reviewed by Marcelino Melara MD. at1 11:25 Mohinder Ngo PA is PHCP. cp 11:25 Marcelino Melara MD is Attending Physician. cp 11:30 Patient has correct armband on for positive identification. Placed in gown. Bed in low mh5 position. Call light in reach. Side rails up X 1. Warm blanket given. Pillow given. groundwater monitoring technician on. Pulse ox on. NIBP on. 11:30 No provider procedures requiring assistance completed. sg 11:46 XRAY Chest (1 view) In Process Unspecified. EDMS 11:55 Missed attempt(s): 20 gauge in right antecubital area. Bleeding controlled, band aid sv applied, catheter tip intact. 12:00 Initial lab(s) drawn, by me, sent to lab. Inserted saline lock: 20 gauge in right sv antecubital area, using aseptic technique. Blood collected. Flushed right antecubital with 5 ml normal saline. 13:52 Radiology exam delayed due to pt not ready \T\ this time, restroom. bq 14:28 CT Chest Abdomen Pelvis W/O Contrast: no oral contrast In Process Unspecified. EDMS 14:28 CT completed. Patient tolerated procedure well. Patient moved back from CT. bq 14:57 Maricarmen Sheridan MD is Hospitalizing Provider. cp 18:20 IV was discontinued by the patient. in RAC, and R Wrist, will attempt new IV access. sg 18:30 Inserted saline lock: 18 gauge in left antecubital area, using aseptic technique. Blood sg collected. 18:36 Missed attempt(s): 20 gauge in right hand. forearm. mh5 18:40 Inserted saline lock: 20 gauge in right forearm, using aseptic technique. sg 18:40 Patient admitted, IV remains in place. intact, No redness/swelling at site. sg 18:42 Inserted saline lock: 20 gauge in left forearm, using aseptic technique. sg 19:53 Suad Melendez, HAYLEE is Primary Nurse. ea Administered Medications: 12:00 Drug: NS 0.9% 1000 ml Route: IV; Rate: 1 bolus; Site: right forearm; sg 13:00 Follow up: Response: No adverse reaction; IV Status: Completed infusion sg 12:00 Drug: ProTONIX 40 mg Route: IVP; Site: right forearm; sg 13:00 Follow up: Response: No adverse reaction sg 12:00 Drug: Zofran 4 mg Route: IVP; Site: right forearm; sg 13:00 Follow up: Response: No adverse reaction sg 12:00 Drug: Insulin Regular Human 10 units {Co-Signature: sv (Sravani Ballard RN).} Route: sg IVP; Site: right forearm; 13:00 Follow up: Response: No adverse reaction; Blood sugar is unchanged sg 12:04 Drug: Banana Bag - (NS 0.9% 1000 ml, foLIC Acid 1 mg, Thiamine 100 mg, Multivitamin 1 sg amp) Route: IV; Rate: 200 ml/hr; Site: right antecubital; 16:15 Follow up: IV Status: Order to discontinue infusion; V/O to DC banana bag, sg pt denies using alcohol 12:56 Drug: NS 0.9% 1000 ml Route: IV; Rate: 1 bolus; Site: right forearm; sg 13:45 Follow up: Response: No adverse reaction; IV Status: Completed infusion sg 14:15 Drug: Insulin Drip - (Insulin Regular Human 100 units, NS 0.9% 100 ml) {Co-Signature: sg iw (Agata Krishna RN).} Route: IV; Rate: calculated rate; Site: right antecubital; 16:25 Follow up: Rate change 10 units/hr; Serum Glucose Noted to be 739 sg Point of Care Testing: Blood Glucose: 11:34 Blood Glucose: High (>450 mg/dL); sg 12:52 Blood Glucose: High (>450 mg/dL); sg 19:34 Blood Glucose: 450 mg/dL; ea Ranges: Intake: Outcome: 14:59 Decision to Hospitalize by Provider. cp 20:35 Admitted to ICU accompanied by nurse, via stretcher, room 7, on monitor, with chart, ea Report called to Receiving nurse in ICU 20:35 Condition: stable 20:35 Instructed on the need for admit. 20:49 Patient left the ED. ea Signatures: Dispatcher [employer] Sravani Pastor RN RN sv Gay, Steven, RN RN sg Quilty, Betty bq Gonzales, Amanda, store receiving specialist EKG Tat1 Mohinder Ngo PA PA cp Son, Mayela mh5 Suad Melendez RN RN ea Johnson, Whitney wj1 Sravani Krishna RN iw Corrections: (The following items were deleted from the chart) 11:07 11:04 Acuity: MARIA DEL ROSARIO 3 sg sg 19:29 19:15 IV Status: Order to discontinue infusion; V/O to DC banana bag, pt sg denies using alcohol sg
--- NOTE | 2018-04-21 15:00 | EDPHYS ---
Physician Documentation [facility] Name: Wero Kwong Sr Age: 52 yrs Sex: Male : 1965 Arrival Date: 04/21/2018 Time: 11:00 Bed 17 Private MD: Guido Pettit S ED Physician Marcelino Melara HPI: 04/21 11:45 This 52 yrs old Male presents to ER via EMS with complaints of Black/Tarry cp Stools, General Weakness. 11:45 The patient presents to the emergency department with diarrhea, that is continuous. cp 11:45 Onset: The symptoms/episode began/occurred 3 day(s) ago. cp 11:45 Possible causes: unknown. Associated signs and symptoms: Pertinent positives: general cp weakness, dark colored stools, Pertinent negatives: abdominal pain, constipation, fever, GI bleeding. Severity of symptoms: in the emergency department the symptoms are unchanged despite home interventions. Historical: - Allergies: 11:06 Codeine; sg - PMHx: 11:06 CAD; CVA; Diabetes - NIDDM; High Cholesterol; Hypertension; Myocardial infarction; sg neuropathy; - PSHx: 11:06 Heart stents; Knee surgery; Cholecystectomy; sg - Immunization history:: Adult Immunizations not up to date. - Social history:: Smoking status: unknown. - Ebola Screening: : Patient negative for fever greater than or equal to 101.5 degrees Fahrenheit, and additional compatible Ebola Virus Disease symptoms Patient denies exposure to infectious person Patient denies travel to an Ebola-affected area in the 21 days before illness onset No symptoms or risks identified at this time. ROS: 11:50 Constitutional: Positive for poor PO intake, Negative for body aches, chills, fever. cp 11:50 Eyes: Negative for injury, pain, redness, and discharge. cp 11:50 ENT: Negative for drainage from ear(s), ear pain, sore throat, difficulty swallowing, difficulty handling secretions. 11:50 Cardiovascular: Negative for chest pain, edema, palpitations. 11:50 Respiratory: Negative for cough, shortness of breath, wheezing. 11:50 Abdomen/GI: Positive for diarrhea, dark colored stools, Negative for abdominal pain, nausea and vomiting, constipation, abdominal cramps, abdominal distension, bowel incontinence. 11:50 Back: Negative for pain at rest, pain with movement. 11:50 : Negative for urinary symptoms, difficulty urinating. 11:50 Skin: Negative for cellulitis, rash. 11:50 Neuro: Positive for general weakness, Negative for altered mental status, headache, syncope. 11:50 All other systems are negative. Exam: 11:15 ECG was reviewed by the Attending Physician. cp 11:55 Constitutional: The patient appears in no acute distress, alert, awake, cp non-diaphoretic, non-toxic, well developed, well nourished. 11:55 Head/Face: Normocephalic, atraumatic. cp 11:55 Eyes: Periorbital structures: appear normal, Pupils: equal, round, and reactive to cp light and accomodation, Extraocular movements: intact throughout, Conjunctiva: normal, no exudate, no injection, Sclera: no appreciated abnormality, Lids and lashes: appear normal, bilaterally. 11:55 ENT: External ear(s): are unremarkable, Ear canal(s): are normal, clear, TM's: bulging, is not appreciated, bilaterally, dullness, bilaterally, erythema, is not appreciated, bilaterally, Nose: is normal, Mouth: Lips: dry, Oral mucosa: moist, Posterior pharynx: is normal, airway is patent, no erythema, no exudate, Voice: is normal. 11:55 Chest/axilla: Inspection: normal, Palpation: is normal, no crepitus, no tenderness. 11:55 Cardiovascular: Rate: tachycardic, Rhythm: regular, Edema: is not appreciated, JVD: is not appreciated. 11:55 Respiratory: the patient does not display signs of respiratory distress, Respirations: normal, no use of accessory muscles, no retractions, no splinting, no tachypnea, labored breathing, is not present, Breath sounds: are clear throughout, no decreased breath sounds, no stridor, no wheezing. 11:55 Abdomen/GI: Inspection: obese Bowel sounds: active, all quadrants, Palpation: abdomen is soft and non-tender, in all quadrants, rebound tenderness, is not appreciated, involuntary guarding, is not appreciated, Rectal exam: Stool: brown, guaiac positive. 11:55 Back: pain, is absent, ROM is normal. cp 11:55 Musculoskeletal/extremity: Exam is negative for decreased range of motion, deformity, injury. 11:55 Skin: cellulitis, is not appreciated, no rash present. 11:55 Neuro: Orientation: to person, place \T\ time. Mentation: slow to respond, sleepy, Motor: moves all fours, strength is normal, Sensation: no obvious gross deficits. Vital Signs: 11:06 BP 92 / 42; Pulse 110; Resp 17; Temp 97.1; Pulse Ox 97% on R/A; Weight 111.13 kg (R); sg Pain 6/10; 12:06 BP 115 / 72; Pulse 77 MON; Resp 17; Pulse Ox 97% on R/A; sg 12:52 BP 92 / 40; Pulse 79 MON; Resp 17 S; Pulse Ox 99% on R/A; sg 14:45 BP 90 / 48; Pulse 74; Resp 21; Temp 97.1(TE); Pulse Ox 99% ; mh5 16:19 BP 93 / 49; Pulse 76; Resp 20; Temp 97.9; Pulse Ox 100% ; mh5 17:52 BP 76 / 56; Pulse 68; Resp 20; Temp 96(TE); Pulse Ox 100% ; wj1 18:15 BP 88 / 50; Pulse 72; Resp 24; Pulse Ox 100% on R/A; sg 19:00 BP 88 / 56; Pulse 80; Resp 22; Pulse Ox 99% ; ea 20:15 BP 100 / 60; Pulse 78; Resp 20; Temp 98; Pulse Ox 99% ; ea MDM: 11:26 Patient medically screened. 12:00 Differential diagnosis: gastritis, cholecystitis, pancreatitis, appendicitis, cp diverticulitis, viral gastroenteritis, gastroenteritis, DKA. 14:56 Physician consultation: Maricarmen Sheridan MD was called at 14:56, was contacted at 14:56, regarding admission, to the ICU, patient's condition. 15:00 Data reviewed: vital signs, nurses notes, lab test result(s), EKG, radiologic studies, cp CT scan, plain films. 04/21 11:35 Order name: Basic Metabolic Panel; Complete Time: 13:26 04/21 13:27 Interpretation: Normal except: NA 119; K 5.5; CL 92; CO2 13; GLUC 1020; BUN 94; CRE cp 4.99; GFR 12; CA 7.4. 04/21 11:35 Order name: CBC with Diff; Complete Time: 12:04 cp 04/21 12:04 Interpretation: Normal except: RBC 3.84; HGB 11.9; HCT 35.1; MPV 11.8; EVER% 74.9; LYM% cp 14.8. 04/21 11:35 Order name: LFT's; Complete Time: 13:26 cp 04/21 13:26 Interpretation: Normal except: AST 13; ALB 2.9; GLOB 3.8; A/G 0.8. cp 04/21 11:35 Order name: Magnesium; Complete Time: 13:26 cp 04/21 11:35 Order name: NT PRO-BNP; Complete Time: 13:26 cp 04/21 11:35 Order name: PT-INR; Complete Time: 12:04 cp 04/21 11:35 Order name: Troponin (emerg Dept Use Only); Complete Time: 13:26 cp 04/21 11:35 Order name: AMMONIA; Complete Time: 12:35 cp 04/21 11:35 Order name: Lipase; Complete Time: 13:26 cp 04/21 13:26 Interpretation: Abnormal: LIP 868. cp 04/21 11:35 Order name: Tylenol Level; Complete Time: 13:26 cp 04/21 11:35 Order name: ETOH Level; Complete Time: 12:23 cp 04/21 12:23 Interpretation: ETOH < 3; Reviewed. cp 04/21 11:36 Order name: Ketone, Serum; Complete Time: 13:26 cp 04/21 11:36 Order name: ABG; Complete Time: 12:14 cp 04/21 12:14 Interpretation: Normal except: ABGPH 7.13; ABGHCO3 13.6; ZVNA5QU 92.7; ABGCOHB 2.2; cp ABGMETHB 1.7; ABGTHB 11.4. 04/21 12:04 Order name: Type And Screen; Complete Time: 13:26 cp 04/21 12:44 Order name: ABO/RH no charge; Complete Time: 12:53 EDMS 04/21 15:32 Order name: Glucose; Complete Time: 17:04 sg 04/21 16:07 Order name: Acetone Level EDMS 04/21 16:07 Order name: Acetone Level; Complete Time: 20:37 EDMS 04/21 16:07 Order name: Acetone Level EDMS 04/21 16:07 Order name: Acetone Level EDDC 04/21 16:07 Order name: Basic Metabolic Panel EDDC 04/21 16:07 Order name: Basic Metabolic Panel; Complete Time: 20:37 EDMS 04/21 16:07 Order name: Basic Metabolic Panel EDDC 04/21 16:07 Order name: Basic Metabolic Panel EDDC 04/21 16:07 Order name: CBC with Automated Diff EDMS 04/21 16:07 Order name: CBC with Automated Diff EDMS 04/21 16:07 Order name: CBC with Automated Diff EDMS 04/21 16:07 Order name: CBC with Automated Diff EDMS 04/21 16:07 Order name: Magnesium EDDC 04/21 16:07 Order name: Magnesium [facility] 04/21 11:35 Order name: XRAY Chest (1 view); Complete Time: 12:04 cp 04/21 11:35 Order name: EKG; Complete Time: 11:37 cp 04/21 11:35 Order name: Cardiac monitoring; Complete Time: 11:39 cp 04/21 11:35 Order name: EKG - Nurse/Tech; Complete Time: 11:39 cp 04/21 11:35 Order name: IV Saline Lock; Complete Time: 11:39 cp 04/21 11:35 Order name: Labs collected and sent; Complete Time: 11:39 cp 04/21 11:35 Order name: O2 Per Protocol; Complete Time: 11:39 cp 04/21 11:35 Order name: O2 Sat Monitoring; Complete Time: 11:39 cp 04/21 13:03 Order name: CT Chest Abdomen Pelvis W/O Contrast: no oral contrast; Complete Time: 14:56cp 04/21 16:07 Order name: CONS Pharmacy Consult [facility] 04/21 16:07 Order name: NPO EDDC 04/21 16:07 Order name: Magnesium [facility] 04/21 16:07 Order name: Magnesium [facility] 04/21 16:17 Order name: Blood Culture [facility] 04/21 16:18 Order name: Occult Blood EDDC EC:15 Rate is 76 beats/min. Rhythm is regular. ME interval is normal. QRS interval is cp prolonged at 164 msec. QT interval is normal. T waves are Inverted in leads III, V2, V3. Interpreted by me. Reviewed by me. Administered Medications: 12:00 Drug: NS 0.9% 1000 ml Route: IV; Rate: 1 bolus; Site: right forearm; sg 13:00 Follow up: Response: No adverse reaction; IV Status: Completed infusion sg 12:00 Drug: ProTONIX 40 mg Route: IVP; Site: right forearm; sg 13:00 Follow up: Response: No adverse reaction sg 12:00 Drug: Zofran 4 mg Route: IVP; Site: right forearm; sg 13:00 Follow up: Response: No adverse reaction sg 12:00 Drug: Insulin Regular Human 10 units {Co-Signature: sv (Sravani Ballard RN).} Route: sg IVP; Site: right forearm; 13:00 Follow up: Response: No adverse reaction; Blood sugar is unchanged sg 12:04 Drug: Banana Bag - (NS 0.9% 1000 ml, foLIC Acid 1 mg, Thiamine 100 mg, Multivitamin 1 sg amp) Route: IV; Rate: 200 ml/hr; Site: right antecubital; 16:15 Follow up: IV Status: Order to discontinue infusion; V/O to DC banana bag, sg pt denies using alcohol 12:56 Drug: NS 0.9% 1000 ml Route: IV; Rate: 1 bolus; Site: right forearm; sg 13:45 Follow up: Response: No adverse reaction; IV Status: Completed infusion sg 14:15 Drug: Insulin Drip - (Insulin Regular Human 100 units, NS 0.9% 100 ml) {Co-Signature: sg iw (Agata Krishna RN).} Route: IV; Rate: calculated rate; Site: right antecubital; 16:25 Follow up: Rate change 10 units/hr; Serum Glucose Noted to be 739 sg Point of Care Testing: Blood Glucose: 11:34 Blood Glucose: High (>450 mg/dL); sg 12:52 Blood Glucose: High (>450 mg/dL); sg 19:34 Blood Glucose: 450 mg/dL; ea Ranges: Critical Glucose Levels:Adult <50 mg/dl or >400 mg/dl <40 mg/dl or >180 mg/dl Disposition: 04/21/18 14:59 Hospitalization ordered by Maricarmen Sheridan for Inpatient Admission. Preliminary diagnosis are Other specified diabetes mellitus with ketoacidosis, Acute kidney failure, unspecified, Diarrhea, unspecified. - Bed requested for Intensive Care Unit. - Status is Inpatient Admission. ea - Condition is Stable. - Problem is new. - Symptoms have improved. UTI on Admission? No Addendum: 04/25/2018 15:24 Co-signature as Attending Physician, Marcelino Melara MD. m a2 Signatures: Dispatcher [employer] EDDC Beti Holliday RN RN Loki Miranda RN RN Mohinder Ngo PA PA cp Lanette Mathias RN RN Suad Melendez RN RN ea Alzahri, Mohammad, MD MD az2 Sravani Krishna RN Corrections: (The following items were deleted from the chart) 04/21 13:27 13:26 Normal except: NA 119; K 5.5; CL 92; CO2 13; GLUC 1020; BUN 94; CRE 4.99; GFR 12. cp cp 13:48 13:02 Chest Abdomen Pelvis Wo Con+CT.RAD.BRZ ordered. EDDC EDMS 18:16 14:59 Hospitalization Ordered by Maricarmen Sheridan MD for Inpatient Admission. Preliminary diagnosis is Other specified diabetes mellitus with ketoacidosis; Acute kidney failure, unspecified; Diarrhea, unspecified. Bed requested for Intensive Care Unit. Status is Inpatient Admission. Condition is Stable. Problem is new. Symptoms have improved. UTI on Admission? No. cp 19:21 18:16 04/21/2018 14:59 Hospitalization Ordered by Maricarmen Sheridan MD for Inpatient cg Admission. Preliminary diagnosis is Other specified diabetes mellitus with ketoacidosis; Acute kidney failure, unspecified; Diarrhea, unspecified. Bed requested for Intensive Care Unit. Status is Inpatient Admission. Condition is Stable. Problem is new. Symptoms have improved. UTI on Admission? No. dw 19:22 12:54 Ramos ordered. cp sg 19:30 17:56 GLUCOSE+C.LAB.BRZ ordered. EDMS EDMS 19:31 18:52 ACETONE, SERUM+C.LAB.BRZ ordered. EDMS EDMS 19:31 18:52 BASIC METABOLIC PANEL+C.LAB.BRZ ordered. EDMS EDMS 20:49 19:21 04/21/2018 14:59 Hospitalization Ordered by Maricarmen Sheridan MD for Inpatient ea Admission. Preliminary diagnosis is Other specified diabetes mellitus with ketoacidosis; Acute kidney failure, unspecified; Diarrhea, unspecified. Bed requested for Intensive Care Unit. Status is Inpatient Admission. Condition is Stable. Problem is new. Symptoms have improved. UTI on Admission? No. cg
[2018-04-21] MEDS ORDERED: ONDANSETRON 4 MG/2 ML VIAL IV PRN (16:02)
[2018-04-21] MEDS: D5 0.45 NS 1,000 ML IV SCH ×2 (17:00→23:40)
[2018-04-21] MEDS ORDERED: PIPER/TAZO/NS 3.375gm 100 ML IV SCH (18:00)
--- NOTE | 2018-04-21 18:04 | HP ---
Date of Admission: 04/21/2018 Reason For Admission: Fatigue, weakness, dark stool, and imbalance with poly urea. History Of Present Illness: This is a 52-year-old gentleman with history of multiple medical problem s including diabetes, hyperlipidemia, hypertension, heart attack, neuropathy presented to the emergen cy room with history of progressive weakness, fatigue, imbalance, polyuria, and polydipsia, and on fu rther evaluation in the ER, patient found to be severely acidotic with a pH of 7.1, glucose of a 1029 , anion gap at 12, creatinine of 4.99, BUN of 94. The patient was started on banana bag in the ER. He was admitted for DKA. Currently patient is arousable, but easily sleepy. He is weak, fatigued. There was no family at the bedside. Review of system was not obtainable. Past Medical History: 1.According to the record significant for stroke, liver cirrhosis, coronary artery disease, diabetes mellitus, hyperlipidemia. 2.Neuropathy. Past Surgical History: Significant for knee surgery, heart stent, and cholecystectomy. Allergy: To codeine. Social History: Apparently, patient is , he has 4 kids. He is retired. 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 He used to be a heavy smoker, but he quit in February of this year, and he used to smoke 4 packs a day according to what he told me. He does not drink or use any drugs. Family History: Father . Mother alive and healthy. Medication List: Not available. The patient is not sure, and there is no family at the bedside. Review of Systems: Unobtainable as patient is slightly obtunded. Physical Examination: Vital Signs: Currently, blood pressure is 90/48, respiratory rate 21, pulse 74, temperature 97.1, sa turating 99%. General: The patient is sleepy, but arousable. Looks in mild distress. HEENT: Atraumatic, normocephalic. Oral mucosa is very dry. Neck: Supple. No JVD. No bruits. Chest: Clear to auscultation. Good air entry. Heart: Regular rate and rhythm. S1, S2 normal. No gallop or murmur. Abdomen: Soft, nontender. No masses. No hepatosplenomegaly. Positive bowel sounds. Obese. Extremities: No clubbing, cyanosis, or edema. No calf tenderness. Neurologic: Was not able to assess as the patient again slightly obtunded. Laboratory Data: Showed hematology CBC with hemoglobin of 11.9, white blood cell 4.5, platelet of 15 7. ABG with pH of 7.13. CO2 42, PO2 of 93, bicarb of 13. Chemistry with sodium 119, chloride 92, p otassium 5.5, BUN of 94, creatinine of 4.99, glucose 1020, calcium 7.4. Assessment And Plan: This is a 52-year-old gentleman with history of multiple medical problems inclu ding diabetes, hypertension, hyperlipidemia, coronary artery disease, neuropathy, presented with fati jimmy and weakness, and found to have diabetic ketoacidosis. 1.Diabetic ketoacidosis. We will start patient with bolus IV fluid with normal saline. Continue pa tient on insulin drip. Check BMP every 4 hours and calculated anion gap. Once anion gap is closed, we will be able to switch patient to insulin sliding scale, and half normal saline D5 at 150 cc/hour. I will proceed with sepsis workup with blood culture urine culture, and start the patient empirical ly on Zosyn as the patient claimed he is using his home medication, he has not stopped any so far. 2.Hyperkalemia, most likely secondary to his diabetic ketoacidosis. We will follow potassium and re place as needed. The patient will be started on potassium protocol. 3.Acute renal failure most likely secondary to dehydration and diabetic ketoacidosis. We will proce ed with IV hydration. 4.Hyponatremia secondary to diabetic ketoacidosis. We will follow closely. 5.History of tarry stool. I will check stool occult blood. The patient's hemoglobin is 11.9. I wi ll follow up closely. 6.Deep vein thrombosis prophylaxis. I will not start any, as patient reported tarry stools. I will make sure there is no blood in the stool before and the H and H is stable before starting the patien t on DVT prophylaxis. 7.Will admit to ICU. Keep patient on tele. DARLING/DOMINIC Voice ID: [id number]
[2018-04-21] MEDS ORDERED: NS KCL 20MEQ 1,000 ML IV ONE (18:28)
[2018-04-21] MEDS ORDERED: NACHLORIDE 0.45% 1,000 ML IV ONE (18:28)
[2018-04-21] MEDS ORDERED: D5 0.45 NS 1,000 ML IV ONE (18:29)
[2018-04-21 19:14] LABS: BUN Blood Urea Nitrogen 96 mg/dL (7-18); Potassium 4.9 mmol/L (3.5-5.1); Sodium Level 129 mmol/L (136-145)
[2018-04-21 19:16] LABS: Bicarbonate 13 mmol/L (21-32); Glucose Level 495 mg/dL (74-106)
[2018-04-21] MEDS: NACHLORIDE 0.45% 1,000 ML IV SCH ×2 (21:00→21:14)
[2018-04-21] MEDS ORDERED: NA CHLORIDE 0.9% 1,000 ML ONE (21:08)
[2018-04-21] MEDS: NS KCL 20MEQ 1,000 ML IV SCH (21:30)
[2018-04-21 21:33] LABS: BUN Blood Urea Nitrogen 93 mg/dL (7-18); Bicarbonate 15 mmol/L (21-32); Potassium 4.6 mmol/L (3.5-5.1); Sodium Level 129 mmol/L (136-145)
[2018-04-21] MEDS: NA CHLORIDE 0.9% 1,000 ML IV SCH (21:34)
[2018-04-21 21:42] LABS: Glucose Level 467 mg/dL (74-106)
[2018-04-21] MEDS ORDERED: NA CHLORIDE 0.9% 100 ML ONE (22:21)
[2018-04-21] MEDS ORDERED: PIPERACIL/TAZO 3.375 GM VIAL IV ONE (22:21)
[2018-04-21] MEDS ORDERED: NA CHLORIDE 0.9% 500 ML IV ONE (22:42)
[2018-04-21] MEDS ORDERED: NA CHLORIDE 0.9% 500 ML ONE (22:57)
[2018-04-21] MEDS ORDERED: NOREPINEPHRINE 4 MG in D5W 250 ML IV PRN (23:38)
[2018-04-21] MEDS ORDERED: NOREPINEPHRINE 4mg/D5W 250mL 4 MG/250 ML BAG IV ONE (23:59)
[2018-04-22] MEDS ORDERED: INSULIN -REGULAR HUMAN 50 UNIT/0.5 ML ML ONE (00:14)
[2018-04-22] MEDS ORDERED: NA CHLORIDE 0.9% 100 ML ONE (00:14)
[2018-04-22 01:45] LABS: BUN Blood Urea Nitrogen 94 mg/dL (7-18); Glucose Level 219 mg/dL (74-106); Potassium 4.1 mmol/L (3.5-5.1); Sodium Level 133 mmol/L (136-145)
[2018-04-22 01:46] LABS: Bicarbonate 14 mmol/L (21-32)
[2018-04-22] MEDS ORDERED: NA CHLORIDE 0.9% 1,000 ML IV ONE (04:01)
[2018-04-22] MEDS: D5 0.45 NS 1,000 ML IV SCH ×2 (04:42→12:40)
[2018-04-22] MEDS ORDERED: INSULIN 70/30 100 UNITS/ML SQ SCH ×2 (05:47→16:30)
[2018-04-22] MEDS: NA CHLORIDE 0.9% 1,000 ML IV SCH (06:00)
[2018-04-22 06:01] LABS: Absolute Lymphocytes (CBC) 1.7 K/uL (0.7-4.9); Absolute Monocytes 0.7 K/uL (0.1-1.3); Absolute Neutrophil 4.3 K/uL (1.8-8.0); Basophils % 0.5 % (0-1.3); Eosinophils % 5.2 % (0-4.4); Hematocrit 31.6 % (39.6-49.0); Lymphocytes % 23.4 % (15.3-44.8); MPV 11.6 fL (7.6-11.3); Monocytes % 9.8 % (3.3-12.3); RBC Red Blood Cell Count 3.66 M/uL (4.33-5.43)
[2018-04-22 06:06] LABS: Magnesium 1.8 mg/dL (1.8-2.4); Potassium 3.9 mmol/L (3.5-5.1)
--- NOTE | 2018-04-22 07:51 | RAD REPORT ---
EXAM DESCRIPTION: RAD - Chest Single View - 04/22/2018 1:41 am CLINICAL HISTORY: PICC line placement A preliminary report was provided at the time of the study and reviewed prior to final report. COMPARISON: April 21 FINDINGS: Portable chest was obtained following placement of a left upper extremity PICC line. The c atheter tip is in the distal SVC.
[2018-04-22] MEDS ORDERED: ENOXAPARIN 40 MG/0.4 ML SQ SCH (09:00)
[2018-04-22] MEDS: ENOXAPARIN 30 MG/0.3 ML SQ SCH (09:00)
[2018-04-22] MEDS ORDERED: NA CHLORIDE 0.9% 1,500 ML IV SCH (11:00)
[2018-04-22] MEDS ORDERED: D50W 25 GM/50 ML SYRINGE IV PRN (11:03)
[2018-04-22] MEDS ORDERED: GLUCAGON 1 MG/VIAL IM PRN (11:03)
[2018-04-22] MEDS: INSULIN -REGULAR HUMAN 50 UNIT/0.5 ML ML SQ SCH ×2 (11:58→17:07)
[2018-04-22 12:20] LABS: Arterial Blood Carboxyhemoglob 1.9 % (0-1.5); Blood Gas Oxyhemoglobin 93.9 % (94-97); Blood O2 Saturation 96.7 % (92-98.5)
[2018-04-22] MEDS: PIPER/TAZO/NS 2.25gm 2.25 GM/50 ML BAG IVPB SCH ×2 (12:39→17:08)
[2018-04-22] MEDS ORDERED: ACETAMINOPHEN 500 MG TAB PO PRN (13:53)
[2018-04-22] MEDS ORDERED: CALCIUM GLUC 10% INJ 9.3 MEQ in NA CHLORIDE 0.9% 100 ML IV ONE (14:00)
[2018-04-22 15:04] LABS: Albumin 2.6 g/dL (3.4-5.0); Phosphorus 4.7 mg/dL (2.5-4.9)
--- NOTE | 2018-04-22 15:12 | PN ---
Subjective: Currently, the patient is lying in bed. He is little confused. He is having some chill s and low-grade temperature. Family at the bedside. They are concerned about him. He has been for 2 days with nausea, vomiting, diarrhea, and black stool. He denies any chest pain. No abdominal juventino n. He has some tenderness in his tongue. He denied any tongue bite. Review of Systems: Otherwise negative. Physical Examination: Vital Signs: Blood pressure is 88/74, respiratory rate 17, pulse 73, temperature 99.2. General: He is alert but confused. Does not look in much distress. He is having some chills. He i s able to follow commands. HEENT: Atraumatic and normocephalic. PERRLA. Oral mucosa is moist. Neck: Supple. No JVD. No carotid bruits. Chest: Clear to auscultation. No expiratory wheezing. Heart: Regular rate and rhythm. S1 and S2 normal. No gallop or murmur. Abdomen: Soft, nontender. No masses. Obese. No hepatosplenomegaly. Positive bowel sounds. Extremities: No clubbing, cyanosis, or edema. No calf tenderness. Neurologic: Deferred as patient is little bit confused. Laboratory Data: This morning showed CBC within normal except for hemoglobin 11.3. Stool occult was positive. ABG this morning pending. Glucose 149. Anion gap is closed and latest BMP showed anion gap of 11, creatinine is still high at 4.5, BUN of 91, GFR of 14, calcium 7.1. Assessment And Plan: A 52-year-old gentleman with history of multiple medical problems including win betes, hypertension, hyperlipidemia, coronary artery disease, neuropathy, presented with progressive fatigue, weakness, nausea and vomiting, diarrhea, black stool, and found to have diabetic ketoacidosi s. 1.Diabetic ketoacidosis. At this point, anion gap is closed. The patient is on subcutaneous insuli n. He is also on insulin drip. We will continue IV fluids. We will check hemoglobin A1c to see how good patient glucose controlled at home. 2. with chills ? Sepsis. The patient is currently on Zosyn. Cultures that were done empi rically yesterday and so far pending. No evidence of pneumonia. If the patient spikes a fever, we w ill add vancomycin at this point. I will try to hydrate the patient further and give him 1.5 L of no rmal saline bolus today . 3.Acute renal failure. The patient have mild renal insufficiency previously, but currently his crea tinine is 4.5 without improvement with hydration. I will give him more aggressive hydration and rech jhony creatinine and if he is not any better, I will proceed with ultrasound and we will consider Nephr ology consult. BUN still very high to that could be again secondary to the patient dehydration with diarrhea and polyuria he had in last 2 days. 4.Confusion could be secondary to metabolic encephalopathy secondary to his renal insufficiency whic h is acute. 5.Hypocalcemia. We will calculate corrected calcium and if it is low, we will replace as the patien t's albumin is low too. 6.Elevated lipase, etiology? I will follow trend, today still pending. 7.Stool occult positive. We will consult GI, as there is no body on-call. The patient will need co lonoscopy. 8.We will hold DVT prophylaxis as patient have active GI bleed. 9. DARLING/DOMINIC Voice ID: [id number] Report ID: [id number]
--- NOTE | 2018-04-22 17:00 | RAD REPORT ---
EXAM DESCRIPTION: CT - Head Brain Wo Cont - 04/22/2018 4:43 pm CLINICAL HISTORY: Transient alteration of awareness COMPARISON: CT study March 12, 2018 TECHNIQUE: Axial 5 mm thick images of the head were obtained without IV contrast. All CT scans are performed using dose optimization technique as appropriate and may include automated exposure control or mA/KV adjustment according to patient size. FINDINGS: No intracranial hemorrhage, mass, edema or shift of mid-line structures. No acute infarcti on changes seen. No significant atrophy or chronic ischemic change. Ventricles are normal. Left-sided cavernous sinus is slightly more prominent appearance than the right. This matches the February exam . Intracranial findings are similar to the prior study. Mastoid air cells and visualized portions of the paranasal sinuses are clear. No acute bony findings. IMPRESSION: Negative non-contrast CT head examination for acute finding. Fullness of the left cavernous sinus relative to the right may be an artifact of slight head tilt on this study. No clear change from the prior examination. The cavernous sinus finding is not felt to be related to the current clinical presentation. Follow-up MR imaging could be performed as clinical findings warrant.
[2018-04-22] MEDS: D5 0.9 NS 1,000 ML IV SCH (17:07)
[2018-04-22] MEDS: Ringers Lactate 1,000 ML IV SCH (17:07)
[2018-04-22 17:13] LABS: Barbiturates NEGATIVE (NEGATIVE); Benzodiazepines NEGATIVE (NEGATIVE); Cocaine NEGATIVE (NEGATIVE); METHAMPHETAM NEGATIVE (NEGATIVE); Methadone NEGATIVE (NEGATIVE); Opiates NEGATIVE (NEGATIVE); Phencyclidine NEGATIVE (NEGATIVE); THC Cannibis NEGATIVE (NEGATIVE)
[2018-04-22] MEDS: INSULIN 70/30 100 UNITS/ML SQ SCH (17:14)
[2018-04-22] MEDS ORDERED: PIPER/TAZO/NS 3.375gm 3.375 GM/100 ML BAG IV SCH (20:30)
--- NOTE | 2018-04-22 22:30 | P.CNS ---
Date of Consult: 04/22/18 Reason for Consult: ASHLEY Chief Complaint: weakness History of Present Illness: Pt is confused, hx obtained from chart A 52-year-old man with PMHx of diabetes with neuropathy , hyperlipidemia, hypertension, presented with weakness pt with progressive weakness, fatigue, imbalance, I n the ER, patient found to be severely acidotic with a pH of 7.1, glucose of a 1029, anion gap at 12, creatinine of 4.99, BUN of 94. Currently no chest pain, palpitation, nausea, vomiting or diarrhea Allergies acetaminophen [From [place]] Allergy (Verified 03/13/18 00:11) Hives/Rash codeine Allergy (Verified 03/12/18 23:24) Hives/Rash hydrocodone [From [place]] Allergy (Verified 03/13/18 00:11) Hives/Rash morphine Allergy (Verified 03/13/18 00:11) Hives/Rash tramadol [From Ultram] Adverse Reaction (Verified 03/12/18 23:33) Itching Home Medications: Aspirin Chewable [Aspirin Chewable*] 81 mg PO DAILY 03/12/18 Atenolol 50 mg PO DAILY 03/12/18 Citalopram [Celexa*] 20 mg PO DAILY 03/12/18 Clopidogrel Bisulfate [Plavix*] 75 mg PO DAILY 03/12/18 Gabapentin [Neurontin] 1,800 mg PO BID 03/12/18 Insulin 70/30 NPH/Reg Human [Novolin 70/30*] 80 units SQ BID 03/12/18 Lisinopril [Prinivil*] 20 mg PO DAILY 03/12/18 Simvastatin [Zocor] 80 mg PO BEDTIME 03/12/18 traMADol HCL [Ultram*] 50 mg PO Q6HP PRN 03/12/18 Cholecalciferol (Vitamin D3) [Vitamin D 5,000 IU Cap*] 5,000 unit PO DAILY #30 cap 03/15/18 Doxazosin [Cardura*] 2 mg PO BEDTIME #30 tab 03/15/18 Furosemide [Lasix*] 80 mg PO BID #120 tab 03/15/18 Pantoprazole [Protonix Tab*] 40 mg PO DAILYAC #30 tab 03/15/18 Spironolactone [Aldactone*] 25 mg PO BEDTIME #30 tab 03/15/18 - Past Medical/Surgical History Diabetic: Yes -: CVA -: Liver cirrhosis, hep A -: CAD -: Diabetes mellitus types 2 -: [place] 07 -: neuropathy -: CHF -: High Cholesterol -: heart stents -: left acl repair -: eleazar - Family History Mother Medical History: Heart disease, Hypertension - Social History Smoking Status: Unknown if ever smoked Alcohol use: No CD- Drugs: No Caffeine use: Yes Place of Residence: Home Physical Examination Temp Pulse Resp BP Pulse Ox 98.9 F 89 21 H 122/81 89 L 04/22/18 16:00 04/22/18 19:00 04/22/18 19:00 04/22/18 19:00 04/22/18 15:15 General: In no apparent distress, Oriented x1 HEENT: Atraumatic Neck: Supple, Without JVD or thyroid abnormality Respiratory: Clear to auscultation bilaterally, Normal air movement Cardiovascular: No edema, Regular rate/rhythm, Normal S1 S2 Gastrointestinal: Normal bowel sounds, Soft and benign, Non-distended - Problems (1) DKA (diabetic ketoacidoses) Current Visit: Yes Status: Acute (2) ASHLEY (acute kidney injury) Current Visit: Yes Status: Acute (3) Coronary artery disease Onset Date: 03/13/18 Current Visit: No Status: Chronic Qualifiers: (4) Diabetes Current Visit: No Status: Chronic Qualifiers: Conclusions/Impression: : A 52-year-old man with PMHx of diabetes with neuropathy , hyperlipidemia, hypertension, presented with weakness pt with progressive weakness, fatigue, imbalance, I n the ER, patient found to be severely acidotic with a pH of 7.1, glucose of a 1029, anion gap at 12, creatinine of 4.99, BUN of 94. Currently no chest pain, palpitation, nausea, vomiting or diarrhea ASHLEY Cr baseline ~1.7 likely due to dehydration Cr improved to 3.8 on IVF f.u renal US CKD due to DM renal dose meds HAGMA change IVF to d5 @50ml//hr + R/L at 100ml/hr no need for bicarb use hyponatremia resolved hyperosmo;lar hyponatremia coonfusion ammonia wnl f/u headt CT utox -ve
[2018-04-23] MEDS: PIPER/TAZO/NS 2.25gm 2.25 GM/50 ML BAG IVPB SCH ×4 (00:16→17:55)
[2018-04-23] MEDS: Ringers Lactate 1,000 ML IV SCH ×2 (02:43→12:29)
[2018-04-23 05:26] LABS: Absolute Lymphocytes (CBC) 1.3 K/uL (0.7-4.9); Absolute Monocytes 0.6 K/uL (0.1-1.3); Basophils % 0.4 % (0-1.3); Hematocrit 26.2 % (39.6-49.0); Lymphocytes % 20.8 % (15.3-44.8); MPV 10.8 fL (7.6-11.3); Monocytes % 9.3 % (3.3-12.3)
[2018-04-23 05:31] LABS: Magnesium 1.7 mg/dL (1.8-2.4); Potassium 3.8 mmol/L (3.5-5.1)
[2018-04-23] MEDS: INSULIN -REGULAR HUMAN 50 UNIT/0.5 ML ML SQ SCH ×5 (05:47→20:30)
[2018-04-23] MEDS ORDERED: KCL 20 MEQ/100 mL IVPB 20 MEQ/100 ML BAG IV SCH (06:00)
--- NOTE | 2018-04-23 06:31 | EKG ---
Test Date: 2018-04-21 Test Time: 11:11:57 Tapper Balance Wheel Screw Hole: JESUS MEASUREMENT RESULTS: Intervals: Rate: 76 [place]: 160 QRSD: 164 QT: 448 QTc: 504 [place]: P: 39 [place]: 160 QRS: 106 T: 6 INTERPRETIVE STATEMENTS: Normal sinus rhythm Right bundle branch block Cannot rule out Inferior infarct, age undetermined Abnormal ECG Compared to ECG 03/12/2018 13:51:40 Myocardial infarct finding now present Electronically Signed On 04-23-18 06:30:34 [employer] by David Fabian
[2018-04-23] MEDS: INSULIN 70/30 100 UNITS/ML SQ SCH ×2 (08:40→17:00)
[2018-04-23] MEDS: ENOXAPARIN 30 MG/0.3 ML SQ SCH (08:40)
--- NOTE | 2018-04-23 09:44 | RAD REPORT ---
EXAM DESCRIPTION: US - Renal Ultrasound-Complete - 04/23/2018 7:31 am CLINICAL HISTORY: Acute renal insufficiency COMPARISON: February 2018 cat scan FINDINGS: The right kidney measures 14 cm with normal echotexture. 1 centimeter right renal cyst The left kidney measures 14 cm with normal echotexture. Hydronephrosis is not seen. Ramos catheter is present within a collapsed bladder IMPRESSION: Unremarkable exam
[2018-04-23] MEDS: D5 0.9 NS 1,000 ML IV SCH (12:29)
[2018-04-23] MEDS ORDERED: GABAPENTIN 100 MG CAP PO SCH (14:00)
[2018-04-23] MEDS: D5W 1,000 ML with NA BICARB 8.4% 100 MEQ IV SCH ×2 (17:00)
--- NOTE | 2018-04-23 17:04 | PN ---
Date of Progress Note: 04/23/2018 Subjective: The patient seen and examined. Chart reviewed and case discussed with RN. The patient still somewhat confused, asking for his gabapentin as he is having severe neuropathy. The patient st ill in the ICU having some diarrhea. Medications: List reviewed. Physical Examination: Vital Signs: Temperature, T-max 100.5, current temperature is 99.9; heart rate 98; blood pressure 13 9/78; respirations 17; O2 100% on room air. General: Awake, alert, oriented x3, in some mild distress, confused, ill-appearing male, obese. CV: S1, S2. No murmurs. Regular rate and rhythm. Peripheral pulses present. Respiratory: Moving air well bilaterally. No wheezing. No stridor. Gastrointestinal: Abdomen is soft, nontender, nondistended. Positive bowel sounds. No guarding or rigidity. Extremities: No clubbing, cyanosis, or edema. 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 The patient has numbness and tingling of bilateral upper extremities and lower extremities in stocking glove distrib ution. Skin: No rashes. Normal skin turgor. Laboratory Data: Sodium 143, potassium 3.8, chloride 119, CO2 14, BUN 69, creatinine 2.76, glucose 1 00, calcium 7.8, magnesium 1.7. WBC is 6, hemoglobin and hematocrit 9.3 and 26.2, platelets 119. To x screen is negative. Clostridium difficile assay is pending. Blood cultures, no growth to date. U rine culture, no growth. Stool occult blood is positive. Assessment And Plan: A 52-year-old male with: 1.Diabetic ketoacidosis. Anion gap closed. The patient has been switched over to subcutaneous insu ritesh. Hemoglobin A1c is 11.4%, not well controlled. 2.Fever with chills, rule out sepsis. The patient currently on broad-spectrum IV antibiotics. Cult ures are negative. No pneumonia or UTI. Culture shows no growth. We will continue with IV fluid hy dration and monitor T-max of 100.5. 3.Acute on chronic kidney injury, stage III, creatinine is still above baseline. Appreciate Nephrol ogy input. Continue to monitor. 4.Acute metabolic encephalopathy, unclear etiology may be related to his renal insufficiency. Head CT scan was negative for any acute bleed or changes. Ammonia level is normal. U tox is also negativ e. We will continue to monitor. 5.Hypocalcemia. Replace and monitor. 6.Elevated lipase. 7.Stool occult positive. The patient no longer having any dark stools. Unfortunately, no GI is anthony ilable. The patient will need to follow up as an outpatient for colonoscopy and EGD to rule out jennifer gnancy or other cause for the Hemoccult-positive stool. Hemoglobin is somewhat decreased due to dilu tional effect. We will continue to monitor. Lovenox has been held. 8.Essential hypertension, stable. 9.Mixed hyperlipidemia, statin. 10.Coronary artery disease, [place] artery and [place] heart without angina. 11.Neuropathy. We will resume gabapentin at lower dose due to confusion and acute kidney injury. /MODL Voice ID: [id number] Report ID: [id number]
[2018-04-23] MEDS ORDERED: HYDROCODONE/APAP 7.5/325 MG TAB PO ONE (17:45)
[2018-04-23] MEDS: DOXAZOSIN 2 MG TAB PO SCH (20:22)
[2018-04-23] MEDS: ATORVASTATIN 40 MG TAB PO SCH (20:23)
[2018-04-23] MEDS: GABAPENTIN 300 MG CAP PO SCH (20:24)
[2018-04-24] MEDS: PIPER/TAZO/NS 2.25gm 2.25 GM/50 ML BAG IVPB SCH ×3 (00:53→11:49)
--- NOTE | 2018-04-24 02:23 | PN ---
Date of Progress Note: 04/23/2018 Chief Complaint: Acute kidney injury, nonoliguric, moderately severe, associated with severe prerenal azotemia in setting of colitis with C diff colitis. The patient was found to have severe acidosis. He presented to the hospital and was evaluated in the emergency room, was found to have severe hyperglycemia. Anion gap was 12 and pH was 7.1, creatinine 4.99, and BUN 94. The patient had very active diarrhea prior to this admission. On arrival to the hospital, medication review showed that the patient was taking lisinopril, furosemide, and spironolactone. Review of Systems: The patient is doing better today. He has nonoliguric urine output. Denies fever, chills. Past Medical History: He has history of liver cirrhosis, CVA, diabetes mellitus , congestive heart failure. Physical Examination: Lungs: Clear to auscultation bilaterally. Heart: S1, S2. Abdomen: Soft, benign. Extremities: No edema. Impression And Plan: 1. Diabetes mellitus, continue insulin. 2. Diabetic ketoacidosis, hyperosmolar state due to uncontrolled diabetes associated with prerenal azotemia and acute kidney injury, nonoliguric. Renal function is somewhat improving. 3. Metabolic acidosis. Continue bicarbonate drip. Monitor electrolytes and renal function, adjust IV fluids according to lab results. 4. Hypertension. Monitor blood pressure. Adjust medication as needed. 5. Diabetes mellitus. Continue insulin. I spent total 36 min including 25 min to coordinate care plan. NETTE/DOMINIC Voice ID: [id number] Report ID: [id number] JENNY
[2018-04-24 05:17] LABS: Absolute Lymphocytes (CBC) 1.4 K/uL (0.7-4.9); Absolute Monocytes 0.4 K/uL (0.1-1.3); Absolute Neutrophil 2.4 K/uL (1.8-8.0); Basophils % 0.7 % (0-1.3); Eosinophils % 4.4 % (0-4.4); Hematocrit 24.6 % (39.6-49.0); Lymphocytes % 31.5 % (15.3-44.8); MPV 10.6 fL (7.6-11.3); Monocytes % 8.8 % (3.3-12.3); RBC Red Blood Cell Count 2.86 M/uL (4.33-5.43)
[2018-04-24 05:32] LABS: Magnesium 1.9 mg/dL (1.8-2.4); Potassium 3.7 mmol/L (3.5-5.1)
[2018-04-24] MEDS: D5W 1,000 ML with NA BICARB 8.4% 100 MEQ IV SCH ×2 (05:51)
[2018-04-24] MEDS: PANTOPRAZOLE 40MG TABLET PO SCH (06:04)
[2018-04-24] MEDS ORDERED: PROMETHAZINE 25 MG/ML VIAL IV PRN (08:03)
[2018-04-24] MEDS: INSULIN 70/30 100 UNITS/ML SQ SCH ×2 (08:46→17:37)
[2018-04-24] MEDS: ENOXAPARIN 30 MG/0.3 ML SQ SCH (08:48)
[2018-04-24] MEDS: ASPIRIN 81 MG CHEWABLE TABLET PO SCH (08:48)
[2018-04-24] MEDS: INSULIN -REGULAR HUMAN 50 UNIT/0.5 ML ML SQ SCH ×4 (08:48→21:00)
[2018-04-24] MEDS: VITAMIN D 5,000 UNIT CAP PO SCH (08:48)
[2018-04-24] MEDS: CITALOPRAM 10 MG TABLET PO SCH (08:49)
[2018-04-24] MEDS: GABAPENTIN 300 MG CAP PO SCH ×3 (08:49→21:16)
[2018-04-24] MEDS: CLOPIDOGREL 75 MG TABLET PO SCH (08:51)
[2018-04-24] MEDS: ATENOLOL 50 MG TAB PO SCH (08:52)
[2018-04-24] MEDS ORDERED: D5 0.45 NS 1,000 ML IV SCH (11:00)
[2018-04-24] MEDS: NACHLORIDE 0.45% 1,000 ML IV SCH (11:49)
[2018-04-24 12:11] VITALS: O2SAT 99
[2018-04-24] MEDS: PIPER/TAZO/NS 3.375gm 3.375 GM/100 ML BAG IV SCH (17:00)
--- NOTE | 2018-04-24 17:37 | PN ---
Date of Progress Note: 04/24/2018 History: The patient was seen and examined. Chart reviewed and case discussed with RN. The patient seeming significantly better. Did have some loose stools, which is now resolved and no further conf usion overnight. Medications: List reviewed. Physical Examination: Vital Signs: Temperature 97.8, heart rate 62, blood pressure 133/79, respirations 14, O2 97% on room air. General: Awake, alert, oriented x3, not in any acute distress, somewhat ill-appearing male, obese. CV: S1, S2. Regular rate and rhythm. Peripheral pulses present. Respiratory: Moving air well bilaterally. No wheezing or stridor. Gastrointestinal: Abdomen is soft, nontender, nondistended. Positive bowel sounds. Extremities: No clubbing, cyanosis, or edema. Neurologic: Nonfocal. The patient does have decreased sensation to light touch in stocking-glove di stribution. Skin: No rashes. Normal skin turgor. Laboratory Data: WBC 4.3, H and H 8.9 and 24.6, platelets 129. C. diff assay is negative. Assessment And Plan: A 52-year-old male with: 1.Diabetic ketoacidosis. Anion gap now closed. Doing well on subcutaneous insulin, uncontrolled. Hemoglobin A1c 11.4%. We will continue to monitor Accu-Cheks. 2.Fever, chills. Sepsis ruled out. Cultures negative. Continue IV fluid hydration. The patient's last fever was at midnight. 3.Acute on chronic kidney injury, stage 3. Creatinine improving. IV fluids have been adjusted. Ne phrology on board. We will continue to monitor and avoid nephrotoxins. 4.Acute metabolic encephalopathy, resolving. Head CT is negative. No clear etiology. Likely relat ed to renal insufficiency. 5.Hypocalcemia. Replace and monitor. 6.Elevated lipase level, resolved. Likely acute phase reactant. 7.Stool occult positive. No longer having any further dark stools. Hemoglobin 8.9. We will contin ue to monitor. The patient will need outpatient GI followup with colonoscopy and EGD to rule out cau ses of Hemoccult-positive stool including malignancy. Will resume Lovenox, when he has no further bl eeding. 8.Essential hypertension, stable. 9.Hyperlipidemia. Statin. 10.Coronary artery disease, [place] artery and [place] heart, without angina. 11.Neuropathy. Continue gabapentin. We will adjust dose. /DOMINIC Voice ID: [id number] Report ID: [id number]
[2018-04-24] MEDS: DOXAZOSIN 2 MG TAB PO SCH (21:16)
[2018-04-24] MEDS: ATORVASTATIN 40 MG TAB PO SCH (21:16)
[2018-04-25] MEDS: NACHLORIDE 0.45% 1,000 ML IV SCH ×2 (02:02→14:52)
[2018-04-25] MEDS: PIPER/TAZO/NS 3.375gm 3.375 GM/100 ML BAG IV SCH ×2 (02:02→08:47)
--- NOTE | 2018-04-25 02:20 | PN ---
Date of Progress Note: 04/24/2018 Chief Complaint: Acute kidney injury. History Of Present Illness: Acute kidney injury, severe, nonoliguric, associated with nonoliguric ATN. Renal function has been gradually improving. The patient was found to have Clostridium difficile colitis. He is on IV fluids. He was found to have metabolic acidosis and was started on sodium bicarbonate drip. Bicarbonate level has improved. The patient is currently on half-normal saline for hydration. Review of Systems: Denies fever or chills. Physical Examination: Lungs: Clear to auscultation bilaterally. Heart: S1 and S2. Abdomen: Soft, benign. Extremities: No edema. Impression And Plan: 1. Acute kidney injury. Renal function has been improving. Monitor electrolytes. Adjust IV fluids. 2. Hypertension. Blood pressure control. Adjust medication as needed. 3. Diabetes mellitus. Continue insulin. 4. Diabetic ketoacidosis, hyperosmolar state, uncontrolled diabetes. Renal function is fluctuating due to multiple causes. The patient presents with an uncontrolled diabetes and is treated with insulin. Blood glucose has improved. NETTE/DOMINIC Voice ID: [id number] Report ID: [id number] MTDErica
[2018-04-25] MEDS: PANTOPRAZOLE 40MG TABLET PO SCH (05:51)
[2018-04-25 06:19] LABS: Absolute Lymphocytes (CBC) 1.9 K/uL (0.7-4.9); Absolute Monocytes 0.4 K/uL (0.1-1.3); Absolute Neutrophil 2.5 K/uL (1.8-8.0); Basophils % 1.1 % (0-1.3); Eosinophils % 7.6 % (0-4.4); Hematocrit 25.7 % (39.6-49.0); Lymphocytes % 36.3 % (15.3-44.8); MPV 9.4 fL (7.6-11.3); Monocytes % 6.9 % (3.3-12.3); RBC Red Blood Cell Count 2.94 M/uL (4.33-5.43)
[2018-04-25 06:40] LABS: Albumin 2.2 g/dL (3.4-5.0); Bilirubin Total 0.3 mg/dL (0.2-1.0); Potassium 3.7 mmol/L (3.5-5.1); Protein, Total 5.8 g/dL (6.4-8.2)
[2018-04-25] MEDS: INSULIN -REGULAR HUMAN 50 UNIT/0.5 ML ML SQ SCH ×2 (08:47→11:30)
[2018-04-25] MEDS: INSULIN 70/30 100 UNITS/ML SQ SCH (08:48)
[2018-04-25] MEDS: ATENOLOL 50 MG TAB PO SCH (08:49)
[2018-04-25] MEDS: ENOXAPARIN 30 MG/0.3 ML SQ SCH (08:49)
[2018-04-25] MEDS: GABAPENTIN 300 MG CAP PO SCH ×2 (08:50→14:51)
[2018-04-25] MEDS: CITALOPRAM 10 MG TABLET PO SCH (08:50)
[2018-04-25] MEDS: CLOPIDOGREL 75 MG TABLET PO SCH (08:50)
[2018-04-25] MEDS: VITAMIN D 5,000 UNIT CAP PO SCH (08:50)
[2018-04-25] MEDS: ASPIRIN 81 MG CHEWABLE TABLET PO SCH (08:50)
[2018-04-25] MEDS ORDERED: POTASSIUM CL SA 10 MEQ TAB PO ONE (09:00)
[2018-04-25 11:15] VITALS: BMI 33.0
[2018-04-25 12:50] VITALS: BP 161/73; TEMP 97.7
--- NOTE | 2018-04-26 03:46 | PN ---
Date of Progress Note: 04/25/2018 Chief Complaint: Acute kidney injury. History Of Present Illness: Acute kidney injury severe, nonoliguric, associated with nonoliguric ATN . Renal function has been gradually improving. The patient was found to have Clostridium difficile colitis. He is advancing with p.o. intake. He responded to IV fluids and renal function has improve d somewhat. The patient was treated with sodium bicarbonate drip for metabolic acidosis related to diarrhea and a cute on chronic kidney injury. Review of Systems: Denies fever, chills. Physical Examination: Lungs: Clear to auscultation bilaterally. Heart: S1, S2. Abdomen: Soft, benign. Extremities: No edema. Impression And Plan: 1.Acute kidney injury. Renal function is improving. Continue adequate hydration by mouth. 2.Hypertension. Hold VICKI inhibitor and spironolactone will be stopped. At this point, the patient is in recovery phase from acute kidney injury. 3.Diabetes mellitus, continue insulin. 4.Diabetic ketoacidosis, hyperosmolar state, uncontrolled diabetes. The patient was primarily admit tin to ICU. Blood glucose has improved. The patient is on insulin. Further recommendation from primary team. The patient is not a candidate for metformin due to acute on chronic kidney injury. C ase was discussed with attending. EB/MODL Voice ID: [id number] Report ID: [id number]
--- NOTE | 2018-04-26 13:40 | DS ---
Date of Discharge: 04/25/2018 Consultants: Dr. Stringer with Nephrology, Dr. Quezada with Nephrology. Admitting Diagnoses: 1. Diabetic ketoacidosis. 2. Hyperkalemia. 3. Acute kidney injury. 4. Hyponatremia. 5. Tarry stools. Discharge Diagnoses: 1. Diabetic ketoacidosis, resolved. 2. Ncvhb-po-fezqcja kidney injury stage 3, improved. 3. Acute metabolic encephalopathy, resolved. 4. Hypocalcemia, replaced. 5. Hyperkalemia, corrected. 6. Elevated lipase level, resolved. 7. Stool occult positive with melenic stools, resolved. The patient will need outpatient GI followup with colonoscopy and esophagogastroduodenoscopy. 8. Essential hypertension, stable. 9. Hyperlipidemia. Statin. 10. Coronary artery disease, [place] artery and [place] heart, without angina. 11. Neuropathy. Gabapentin dose reduced. Hospital Course: The patient is a 52-year-old male, who came into the hospital with fatigue, weakness, dark stools, was found to be in DKA with glucose of 1029 , anion gap 12, creatinine was elevated at 4.99. The patient was started on IV fluid boluses. He was acidotic with a pH of 7.1. He was started on insulin drip, and anion gap improved and closed. The patient was then switched off IV insulin and switched to subcutaneous insulin. The patient was started on IV antibiotics due to fever and possible sepsis, however, sepsis was ruled out. The patient did not have any further febrile episodes. He was afebrile for greater than 48 hours before discharge. His cultures did not show any growth. The patient did have some black tarry stools, which were occult blood positive, however, C diff negative. The patient's hemoglobin levels remained stable. Unfortunately, no GI was available, therefore the patient was unable to have a GI workup done during this hospitalization. The patient understands that he will need outpatient GI followup for single episode of black tarry stools and to have a colonoscopy and EGD to rule out causes of melenic stools including possible malignancy. The patient did not have any further episodes of black tarry stools. His hemoglobin remained stable. He did not require any blood transfusions. The patient was stable from a GI standpoint. The patient's DKA improved. His blood glucose levels also improved. His insulin dose was adjusted. The patient's creatinine improved with IV fluid hydration. The patient was seen by Nephrology, and his medications were adjusted. For now, the patient's medications including lisinopril and spironolactone will be held due to his acute kidney injury. The patient will need to have repeat labs done in 1 to 2 weeks before resuming his medications. His gabapentin dose was also decreased. The patient takes large dose of 1800 mg twice a day due to his neuropathy. The patient was slowly titrated up and maybe titrated further up depending on his kidney function on repeat testing as an outpatient. The patient otherwise did well. Over the course of the hospital stay, he did have some confusion likely related to his renal insufficiency and DKA. Head CT scan was done, which was negative. The patient does have history of Armenta's palsy and has slight facial asymmetry. The patient head CT showed fullness of the left cavernous sinus probably to the right, likely thought to be an artifact due to slight head tilt on the study. There is no clear change from the prior examination on March 12, 2018. As the patient's mental status cleared up, he did not have any further episodes of confusion - no repeat head CT or MRI was warranted. The patient's renal ultrasound showed unremarkable kidneys, did show 1 cm right renal cyst. No hydronephrosis was seen. The patient's hemoglobin A1c was 11.4% . He was counseled regarding his diabetes, will benefit from diabetic education as an outpatient. The patient's electrolytes were corrected. The patient was then stable for discharge. He was cleared from risk and insurance consultant's standpoint. The patient was then discharged home in a stable condition. Activity: Fall precautions. Continue to use a rolling walker. Followup: Follow up with primary care physician in 2 to 3 days. Follow up with business management professor, Dr. Stringer, in 2 weeks. Follow up with GI doctor within in the area within 2 to 4 weeks. Follow up with Dr. Oquendo, primary forensics analyst, in 2 to 4 weeks. Have repeat BMP levels in 1 week to monitor kidney function and electrolytes. PCP to adjust medication dose based on kidney function. Diet: Diabetic diet. Medications: As per medication reconciliation list. Again as mentioned, the patient will need to use a dose of Lasix and gabapentin as per medication list. He will hold spironolactone and lisinopril until kidney function improves and is able to tolerate these medications. Physical Examination: General: Awake, alert, oriented x3. No acute distress. An obese male. CV: S1 and S2. Regular rate and rhythm. Peripheral pulses present. Respiratory: Moving air well bilaterally. Abdomen: Abdomen is soft, nontender, nondistended. Positive bowel sounds. Extremities: No clubbing, cyanosis, or edema. Neuro: Nonfocal. The patient has some slight facial asymmetry due to his Armenta' s palsy. The patient has stocking-glove distribution neuropathy and decreased sensation to light touch. Total time spent discharging the patient was 45 minutes. /DOMINIC Voice ID: [id number] Report ID: [id number] JENNY
== END 2018-04-25 15:52 | disposition home or self-care (01) | DRG 637 ==
LOC: ER 10:53 → 3RD-ICU 14:59 → 4TH 04-24 16:03
PROVIDERS: ADMIT Internal Medicine; ATTEND Family Medicine
DX: E11.10 Type 2 diabetes mellitus with ketoacidosis without coma (principal); G93.41 Metabolic encephalopathy; N17.0 Acute kidney failure with tubular necrosis; K92.1 Melena; E87.1 Hypo-osmolality and hyponatremia; B15.9 Hepatitis A without hepatic coma; A04.72 Enterocolitis due to Clostridium difficile, not specified as recurrent; Z79.4 Long term (current) use of insulin; E83.51 Hypocalcemia; E87.5 Hyperkalemia; R74.8 Abnormal levels of other serum enzymes; I25.10 Atherosclerotic heart disease of native coronary artery without angina pectoris; I12.9 Hypertensive chronic kidney disease with stage 1 through stage 4 chronic kidney disease, or unspecified chronic kidney disease; E11.22 Type 2 diabetes mellitus with diabetic chronic kidney disease; N18.3 Chronic kidney disease, stage 3 (moderate); E11.40 Type 2 diabetes mellitus with diabetic neuropathy, unspecified; G51.0 Bell's palsy; N28.1 Cyst of kidney, acquired; Z88.5 Allergy status to narcotic agent; I25.2 Old myocardial infarction; Z86.73 Personal history of transient ischemic attack (TIA), and cerebral infarction without residual deficits; K74.60 Unspecified cirrhosis of liver; Z95.5 Presence of coronary angioplasty implant and graft; E86.0 Dehydration; E78.2 Mixed hyperlipidemia; E11.65 Type 2 diabetes mellitus with hyperglycemia
CPT/HCPCS: 36415; 70450; 71045; 71250; 74176; 76770; 80048; 80053; 80069; 80076; 80307; 80320; 80329; 82010; 82140; 82274; 82805; 82947; 82962; 83036; 83605; 83690; 83735; 83880; 84484; 85025; 85610; 86850; 86900; 86901; 87040; 87086; 87088; 87493; 93005; 97163; 99285; C9113; J0610; J1650; J2405; J2543; J2550; J3411; J7030

== ENCOUNTER 2018-07-29 02:15 | Inpatient (IN) | payer SELFPAY ==
--- OUTSIDE RECORDS SUMMARY | 2018-07-29 02:20 | XMS REPORT | Clinical Summary ---
:1965 Author Organization [facility] Address [address] [place] [address] Care Team Providers Name Role Phone Asked, [...] capsule total) by mouth once a week. metFORMIN Take 500 mg by 0 Discontinued [...] Discontinued 75 mg tablet mouth daily. 8 furosemide (LASIX) Take 1 tablet 60 tablet 2 03/31/2018 40 mg tablet (40 mg total) 9 by mouth 2 (two) times a day for 30 days. 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 Chest pain 12/01/2016 Essential hypertension 12/01/2016 Coronary artery disease involving [place] coronary artery 12/01/2016 Cirrhosis 12/01/2016 Hypertriglyceridemia 12/01/2016 Depression 12/01/2016 Encounters Date Type Specialty Care Team Description 03/20/2018 - Hospital Encounter General Internal Watson, Acute renal failure, unspecified acute renal failure type (HCC) (Primary Dx); 03/31/2018 Medicine Delilah-Jeny Jeny, Cirrhosis of liver with ascites, unspecified hepatic cirrhosis type (HCC); Old cerebrovascular accident (CVA) without late effect; Tomi, Essential hypertension; Milton O. 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 (HCC); Other forms of angina pectoris (HCC); Armenta's palsy; Ataxia; Current mild episode of major depressive disorder without prior episode (HCC) 02/07/2018 - Hospital Encounter Neurology Rehrer, [place] Occlusion of right posterior communicating artery (Primary Dx); 02/16/2018 DO Kevin Armenta's palsy; Tomi, Ataxia; Milton Schumacher Sr., Essential hypertension; Coronary artery disease involving [place] coronary artery of [place] heart without angina pectoris; Hypertriglyceridemia; 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 (HCC) after 07/28/2017 Family History Medical History Relation Name Comments [...] Taken Blood Pressure 165/77 03/31/2018 8:31 AM FRAME FEEDER Pulse 66 03/31/2018 8:31 AM FRAME FEEDER Temperature 36.6 C (97.9 F) 03/31/2018 8:31 AM FRAME FEEDER Respiratory Rate 18 03/31/2018 8:31 AM FRAME FEEDER Oxygen Saturation 95% 03/31/2018 8:31 AM FRAME FEEDER Inhaled Oxygen Concentration - - Weight 96.6 kg (212 lb 14.4 oz) 03/31/2018 3:57 AM FRAME FEEDER Height 170.2 cm (5' 7") 03/20/2018 4:56 PM FRAME FEEDER Body Mass Index 33.34 03/31/2018 3:57 AM FRAME FEEDER Plan of Treatment Health Maintenance Due Date Last Done Comments DIABETIC RETINAL EYE EXAM 1965 DIABETIC FOOT EXAM 07/30/1977 URINE MICROALBUMIN 07/30/1977 COLON CANCER SCREENING 07/30/2017 SHINGLES VACCINES (#1) 07/30/2017 INFLUENZA VACCINE 11/26/2017 Implants Implanted Type Area Engagement Engineer Device Shelf Model / Identifier Expiration Serial / Date Lot Orthopedic Orthopedic Surgical Surgical Implants Implants Procedures Procedure Name Priority Date/Time Associated Comments Diagnosis POC GLUCOSE Routine 03/31/2018 8:28 Results for this AM FRAME FEEDER procedure are in the results section. ESTIMATED GFR Routine 03/31/2018 3:19 Results for this AM FRAME FEEDER procedure are in the results section. BASIC METABOLIC PANEL Routine 03/31/2018 3:19 Results for this AM FRAME FEEDER procedure are in the results section. POC GLUCOSE Routine 03/30/2018 11:23 Results for this PM FRAME FEEDER procedure are in the results section. POC GLUCOSE Routine 03/30/2018 8:25 Results for this PM FRAME FEEDER procedure are in the results section. POC GLUCOSE Routine 03/30/2018 5:09 Results for this PM FRAME FEEDER procedure are in the results section. POC GLUCOSE Routine 03/30/2018 12:17 Results for this PM FRAME FEEDER procedure are in the results section. POC GLUCOSE Routine 03/30/2018 8:07 Results for this AM FRAME FEEDER procedure are in the results section. ESTIMATED GFR Routine 03/30/2018 2:29 Results for this AM FRAME FEEDER procedure are in the results section. BASIC METABOLIC PANEL Routine 03/30/2018 2:29 Results for this AM FRAME FEEDER procedure are in the results section. POC GLUCOSE Routine 03/30/2018 1:44 Results for this AM FRAME FEEDER procedure are in the results section. POC GLUCOSE Routine 03/29/2018 9:13 Results for this PM FRAME FEEDER procedure are in the results section. POC GLUCOSE Routine 03/29/2018 7:27 Results for this PM FRAME FEEDER procedure are in the results section. POC GLUCOSE Routine 03/29/2018 5:21 Results for this PM FRAME FEEDER procedure are in the results section. POC GLUCOSE Routine 03/29/2018 12:17 Results for this PM FRAME FEEDER procedure are in the results section. POC GLUCOSE Routine 03/29/2018 7:41 Results for this AM FRAME FEEDER procedure are in the results section. POC GLUCOSE Routine 03/28/2018 9:14 Results for this PM FRAME FEEDER procedure are in the results section. POC GLUCOSE Routine 03/28/2018 5:18 Results for this PM FRAME FEEDER procedure are in the results section. POC GLUCOSE Routine 03/28/2018 11:32 Results for this AM FRAME FEEDER procedure are in the results section. POC GLUCOSE Routine 03/28/2018 8:19 Results for this AM FRAME FEEDER procedure are in the results section. POC GLUCOSE Routine 03/28/2018 7:17 Results for this AM FRAME FEEDER procedure are in the results section. ESTIMATED GFR Routine 03/28/2018 4:00 Results for this AM FRAME FEEDER procedure are in the results section. BASIC METABOLIC PANEL Routine 03/28/2018 4:00 Results for this AM FRAME FEEDER procedure are in the results section. POC GLUCOSE Routine 03/27/2018 8:58 Results for this PM FRAME FEEDER procedure are in the results section. POC GLUCOSE Routine 03/27/2018 4:55 Results for this PM FRAME FEEDER procedure are in the results section. POC GLUCOSE Routine 03/27/2018 11:54 Results for this AM FRAME FEEDER procedure are in the results section. POC GLUCOSE Routine 03/27/2018 7:48 Results for this AM FRAME FEEDER procedure are in the results section. ESTIMATED GFR Routine 03/27/2018 4:00 Results for this AM FRAME FEEDER procedure are in the results section. BASIC METABOLIC PANEL Routine 03/27/2018 4:00 Results for this AM FRAME FEEDER procedure are in the results section. POC GLUCOSE Routine 03/27/2018 12:19 Results for this AM FRAME FEEDER procedure are in the results section. POC GLUCOSE Routine 03/26/2018 8:44 Results for this PM FRAME FEEDER procedure are in the results section. POC GLUCOSE Routine 03/26/2018 5:04 Results for this PM FRAME FEEDER procedure are in the results section. ALBUMIN LEVEL Routine 03/26/2018 3:50 Results for this PM FRAME FEEDER procedure are in the results section. US DUPLEX VENOUS LOWER Routine 03/26/2018 2:24 Results for this EXTREMITY BILATERAL PM FRAME FEEDER procedure are in the results section. POC GLUCOSE Routine 03/26/2018 12:22 Results for this PM FRAME FEEDER procedure are in the results section. POC GLUCOSE Routine 03/26/2018 8:09 Results for this AM FRAME FEEDER procedure are in the results section. ESTIMATED GFR Routine 03/26/2018 4:00 Results for this AM FRAME FEEDER procedure are in the results section. BASIC METABOLIC PANEL Routine 03/26/2018 4:00 Results for this AM FRAME FEEDER procedure are in the results section. POC GLUCOSE Routine 03/25/2018 8:43 Results for this PM FRAME FEEDER procedure are in the results section. POC GLUCOSE Routine 03/25/2018 5:33 Results for this PM FRAME FEEDER procedure are in the results section. POC GLUCOSE Routine 03/25/2018 12:15 Results for this PM FRAME FEEDER procedure are in the results section. POC GLUCOSE Routine 03/25/2018 7:41 Results for this AM FRAME FEEDER procedure are in the results section. ESTIMATED GFR Routine 03/25/2018 4:00 Results for this AM FRAME FEEDER procedure are in the results section. BASIC METABOLIC PANEL Routine 03/25/2018 4:00 Results for this AM FRAME FEEDER procedure are in the results section. B NATRIURETIC PEPTIDE Routine 03/25/2018 3:30 Results for this AM FRAME FEEDER procedure are in the results section. POC GLUCOSE Routine 03/24/2018 8:51 Results for this PM FRAME FEEDER procedure are in the results section. POC GLUCOSE Routine 03/24/2018 5:43 Results for this PM FRAME FEEDER procedure are in the results section. POC GLUCOSE Routine 03/24/2018 12:01 Results for this PM FRAME FEEDER procedure are in the results section. POC GLUCOSE Routine 03/24/2018 7:32 Results for this AM FRAME FEEDER procedure are in the results section. ESTIMATED GFR Routine 03/24/2018 4:00 Results for this AM FRAME FEEDER procedure are in the results section. BASIC METABOLIC PANEL Routine 03/24/2018 4:00 Results for this AM FRAME FEEDER procedure are in the results section. HC COMPLETE BLD COUNT Routine 03/24/2018 3:30 Results for this W/AUTO DIFF AM FRAME FEEDER procedure are in the results section. POC GLUCOSE Routine 03/23/2018 8:25 Results for this PM FRAME FEEDER procedure are in the results section. POC GLUCOSE Routine 03/23/2018 5:27 Results for this PM FRAME FEEDER procedure are in the results section. POC GLUCOSE Routine 03/23/2018 12:29 Results for this PM FRAME FEEDER procedure are in the results section. POC GLUCOSE Routine 03/23/2018 8:17 Results for this AM FRAME FEEDER procedure are in the results section. HC COMPLETE BLD COUNT Routine 03/23/2018 4:30 Results for this W/AUTO DIFF AM FRAME FEEDER procedure are in the results section. ESTIMATED GFR Routine 03/23/2018 4:00 Results for this AM FRAME FEEDER procedure are in the results section. BASIC METABOLIC PANEL Routine 03/23/2018 4:00 Results for this AM FRAME FEEDER procedure are in the results section. POC GLUCOSE Routine 03/22/2018 5:24 Results for this PM FRAME FEEDER procedure are in the results section. POC GLUCOSE Routine 03/22/2018 12:23 Results for this PM FRAME FEEDER procedure are in the results section. POC GLUCOSE Routine 03/22/2018 8:15 Results for this AM FRAME FEEDER procedure are in the results section. ESTIMATED GFR Routine 03/22/2018 5:50 Results for this AM FRAME FEEDER procedure are in the results section. HC COMPLETE BLD COUNT Routine 03/22/2018 4:20 Results for this W/AUTO DIFF AM FRAME FEEDER procedure are in the results section. ESTIMATED GFR Routine 03/22/2018 4:00 Results for this AM FRAME FEEDER procedure are in the results section. SERUM ELECTROPHORESIS Routine 03/22/2018 4:00 Results for this AM FRAME FEEDER procedure are in the results section. HEPATITIS C ANTIBODY Routine 03/22/2018 4:00 Results for this AM FRAME FEEDER procedure are in the results section. HEPATITIS B SURFACE Routine 03/22/2018 4:00 Results for this ANTIGEN AM FRAME FEEDER procedure are in the results section. HEPATITIS B SURFACE Routine 03/22/2018 4:00 Results for this ANTIBODY AM FRAME FEEDER procedure are in the results section. HEPATITIS B CORE Routine 03/22/2018 4:00 Results for this ANTIBODY TOTAL AM FRAME FEEDER procedure are in the results section. C4 COMPLEMENT COMPONENT Routine 03/22/2018 4:00 Results for this AM FRAME FEEDER procedure are in the results section. C3 COMPLEMENT COMPONENT Routine 03/22/2018 4:00 Results for this AM FRAME FEEDER procedure are in the results section. RHEUMATOID FACTOR Routine 03/22/2018 4:00 Results for this AM FRAME FEEDER procedure are in the results section. ANNE Routine 03/22/2018 4:00 Results for this AM FRAME FEEDER procedure are in the results section. BASIC METABOLIC PANEL Routine 03/22/2018 4:00 Results for this AM FRAME FEEDER procedure are in the results section. POC GLUCOSE Routine 03/21/2018 9:39 Results for this PM FRAME FEEDER procedure are in the results section. CREATININE CLEARANCE, Routine 03/21/2018 5:30 Results for this URINE, 24 HOUR PM FRAME FEEDER procedure are in the results section. URINE PROTEIN Routine 03/21/2018 5:30 Results for this ELECTROPHORESIS, 24 HOUR PM FRAME FEEDER procedure are in the results section. POC GLUCOSE Routine 03/21/2018 5:21 Results for this PM FRAME FEEDER procedure are in the results section. ESTIMATED GFR Routine 03/21/2018 3:50 Results for this PM FRAME FEEDER procedure are in the results section. CREATININE CLEARANCE, Routine 03/21/2018 3:50 Results for this URINE, 24 HOUR PM FRAME FEEDER procedure are in the results section. POC GLUCOSE Routine 03/21/2018 12:08 Results for this PM FRAME FEEDER procedure are in the results section. US RENAL STAT 03/21/2018 11:18 Results for this AM FRAME FEEDER procedure are in the results section. POC GLUCOSE Routine 03/21/2018 8:20 Results for this AM FRAME FEEDER procedure are in the results section. URINALYSIS SCREEN AND Routine 03/21/2018 6:47 Results for this MICROSCOPY, WITH REFLEX AM FRAME FEEDER procedure are in TO CULTURE the results section. URINE CULTURE Routine 03/21/2018 6:47 Results for this AM FRAME FEEDER procedure are in the results section. ESTIMATED GFR Routine 03/21/2018 4:17 Results for this AM FRAME FEEDER procedure are in the results section. T4, FREE Routine 03/21/2018 4:17 Results for this AM FRAME FEEDER procedure are in the results section. THYROID STIMULATING Routine 03/21/2018 4:17 Results for this HORMONE AM FRAME FEEDER procedure are in the results section. LIPID PANEL Routine 03/21/2018 4:17 Results for this AM FRAME FEEDER procedure are in the results section. BASIC METABOLIC PANEL Routine 03/21/2018 4:17 Results for this AM FRAME FEEDER procedure are in the results section. HC COMPLETE BLD COUNT Routine 03/21/2018 4:17 Results for this W/AUTO DIFF AM FRAME FEEDER procedure are in the results section. HEMOGLOBIN A1C Routine 03/20/2018 11:58 Results for this PM FRAME FEEDER procedure are in the results section. TROPONIN Timed 03/20/2018 11:58 Results for this PM FRAME FEEDER procedure are in the results section. POC GLUCOSE Routine 03/20/2018 11:48 Results for this PM FRAME FEEDER procedure are in the results section. XR CHEST 1 VW PORTABLE STAT 03/20/2018 11:33 Results for this PM FRAME FEEDER procedure are in the results section. CT HEAD WO CONTRAST STAT 03/20/2018 11:16 Results for this PM FRAME FEEDER procedure are in the results section. ESTIMATED GFR STAT 03/20/2018 5:28 Results for this PM FRAME FEEDER procedure are in the results section. B NATRIURETIC PEPTIDE STAT 03/20/2018 5:28 Results for this PM FRAME FEEDER procedure are in the results section. TROPONIN STAT 03/20/2018 5:28 Results for this PM FRAME FEEDER procedure are in the results section. COMPREHENSIVE METABOLIC STAT 03/20/2018 5:28 Results for this PANEL PM FRAME FEEDER procedure are in the results section. PROTHROMBIN TIME WITH STAT 03/20/2018 5:28 Results for this INR PM FRAME FEEDER procedure are in the results section. PARTIAL THROMBOPLASTIN STAT 03/20/2018 5:28 Results for this TIME (PTT) PM FRAME FEEDER procedure are in the results section. HC COMPLETE BLD COUNT STAT 03/20/2018 5:28 Results for this W/AUTO DIFF PM FRAME FEEDER procedure are in the results section. ECG 12-LEAD STAT 03/20/2018 5:24 Results for this PM FRAME FEEDER procedure are in the results section. POC [...] are in SPECTRAL COLOR DOPPLER the results (07326) section. ESTIMATED GFR Routine 02/09/2018 4:14 Results [...] procedure are in the results section. after 07/28/2017 Results POC glucose (03/31/2018 8:28 AM FRAME FEEDER)Only the most recent of92 resultswithin the time period is included. POC glucose 341 (H) 65 - 99 mg/dL [facility] Comment: [facility] Notified RN Meter ID: [id number] Technical Support Coordinator: Cem Colon Performing Organization Address City/State/Zipcode Phone Number [facility] DEPARTMENT OF PATHOLOGY AND [address] [place] [address] GENOMIC MEDICINE [address] [address] Estimated GFR (03/31/2018 3:19 AM FRAME FEEDER)Only the most recent of19 resultswithin the time period is included. Estimated GFR 40 (A) mL/min/1.73 m2 [facility] Comment: HOSPITAL CatergoryUnitsInterpretation G1 >=90 Normal or high G2 60-89Mildly decreased [id number] to moderately decreased [id number] to severely decreased G4 15-29Severely decreased G5 <15Kidney failure The eGFR was calculated using the Chronic Kidney Disease Epidemiology Collaboration (CKD-EPI) equation. Interpretation is based on recommendations of the National Kidney Foundation-Kidney Disease Outcomes Quality Initiative (NKF-KDOQI) published in 2014. Specimen Plasma specimen Performing Organization Address City/[facility] Cent[facility]ode Phone Number [facility] DEPARTMENT OF PATHOLOGY AND [address] [place] [address] Basic metabolic panel (03/31/2018 3:19 AM FRAME FEEDER)Only the most recent of15 resultswithin the time period is included. Sodium 137 135 - 148 mEq/L [facility] Potassium 4.3 3.5 - 5.0 mEq/L [facility] Chloride 96 (L) 98 - 112 mEq/L [facility] CO2 25 24 - 31 mEq/L [facility] Anion gap 16@ANIO (H) 7 - 15 mEq/L [facility] BUN 61 (H) 6 - 20 mg/dL [facility] Creatinine 1.91 (H) 0.70 - 1.20 mg/dL [facility] Glucose 336 (H) 65 - 99 mg/dL [facility] Calcium 9.7 8.3 - 10.2 mg/dL [facility] Specimen Plasma specimen Performing Organization Address [facility] Centercode Phone Number [facility] DEPARTMENT OF PATHOLOGY AND [address] [place] [address] Albumin level (03/26/2018 3:50 PM FRAME FEEDER) Albumin 3.3 (L) 3.5 - 5.0 g/dL [facility] Specimen Plasma specimen Performing Organization Address [facility] Centercode Phone Number [facility] DEPARTMENT OF PATHOLOGY AND [address] [place] [address] Us duplex venous lower extremity (03/26/2018 2:24 PM FRAME FEEDER) Narrative Performed At [facility] Lower Extremity Venous Report [address] [place] [address] Pat.Name:PAOLA KWONG Pat.ID:[id number] .Date: 03/26/2018Refer.MD:USHA OQUENDO MD Exam Time: 1:48:00 PMStudy Type:LE Venous Height:67inWeight: 227lb BSA: 2.14 m2 DOBAge:1965,52Y Sex: MALESonogrphr: Florence Eli RVT Pat. Stat.:Inpatient Room:[address] TapeVol: ZACHARIAH, CPT - 4: 14354 Echo Event ID:[id number] Order ID:[id number] Reason for Study:LE swelling and pain, evaluation [...] Radiology Results In - 03/26/2018 8:54 PM [facility] Lower Extremity Venous Report [id number] [address] Pat.Name: PAOLA KWONG Pat.ID: [id number] .Date: 03/26/2018 Refer.MD: USHA OQUENDO MD Exam Time: 1:48:00 PM Study Type:LE Venous Height: 67in Weight: 227lb BSA: 2.14 m2 Age: 6 1965,52Y Sex: MALE Sonogrphr: Florence Eli RVT Pat. Stat.:Inpatient Room: [address] Vol: JJ, CPT - 4: 15205 Echo Event ID:[id number] Order ID: [id number] Reason for Study:LE swelling and pain, evaluation [...] Valentín Vallejo MD, RPVI Performing Organization Address [facility]/Zipcode Phone Number [facility] [address] [place] [address] B natriuretic peptide (03/25/2018 3:30 AM FRAME FEEDER)Only the most recent of3 resultswithin the time period is included. BNP 194 (H) 0 - 100 pg/mL [facility] Specimen Blood Performing Organization Address [facility] Centercode Phone Number [facility] DEPARTMENT OF PATHOLOGY AND [address] [place] [address] GENOMIC MEDICINE [facility] [address] [place] [address] CBC with platelet and differential (03/24/2018 3:30 AM FRAME FEEDER)Only the most recent of9 resultswithin the time period is included. WBC 4.40 (L) 4.50 - 11.00 k/uL [facility] RBC 3.30 (L) 4.40 - 6.00 m/uL [facility] HGB 10.2 (L) 14.0 - 18.0 g/dL [facility] HCT 30.2 (L) 41.0 - 51.0 % [facility] MCV 91.5 82.0 - 100.0 fL [facility] MCH 30.9 27.0 - 34.0 pg [facility] MCHC 33.8 31.0 - 37.0 g/dL [facility] RDW - SD 44.3 37.0 - 55.0 fL [facility] MPV 13.2 8.8 - 13.2 fL [facility] Platelet count 138 (L) 150 - 400 k/uL [facility] Nucleated RBC 0.00 /100 WBC [facility] Neutrophils 50.1 39.0 - 69.0 % [facility] Lymphocytes 33.9 25.0 - 45.0 % [facility] Monocytes 8.9 0.0 - 10.0 % [facility] Eosinophils 5.9 (H) 0.0 - 5.0 % [facility] Basophils 0.7 0.0 - 1.0 % [facility] Immature granulocytes 0.5Comment: "Immature 0.0 - 1.0 % [facility] granulocytes" [facility] (promyelocytes, myelocytes, metamyelocytes) Specimen Blood Performing Organization Address [facility] Centercode Phone Number [facility] DEPARTMENT OF PATHOLOGY AND [address] [place] [address] [place] [phone] Hepatitis C antibody (03/22/2018 4:00 AM FRAME FEEDER) Hepatitis C Ab Non-reactive Non-reactive [facility] Specimen Blood Performing Organization Address City/[facility] Centercode Phone Number [facility] DEPARTMENT OF PATHOLOGY AND [address] [place] [phone] Hepatitis B core antibody total (03/22/2018 4:00 AM FRAME FEEDER) Hepatitis B core total Ab Non-reactive Non-reactive [facility] Specimen Blood Performing Organization Address City/[facility] Phone Number [facility] DEPARTMENT OF PATHOLOGY AND [address] [place] [phone] Hepatitis B surface antibody (03/22/2018 4:00 AM FRAME FEEDER) Hepatitis B surface Ab Non-reactive Non-reactive [facility] Specimen Blood Performing Organization Address City/[facility] Centercode Phone Number [facility] DEPARTMENT OF PATHOLOGY AND [address] [place] [phone] Hepatitis B surface antigen (03/22/2018 4:00 AM FRAME FEEDER) Hepatitis B surface Ag Non-reactive Non-reactive [facility] Specimen Blood Performing Organization Address City/[facility]ercode Phone Number [facility] DEPARTMENT OF PATHOLOGY AND [address] [place] [phone] Rheumatoid factor (03/22/2018 4:00 AM FRAME FEEDER)Only the most recent of2 resultswithin the time period is included. Rheumatoid factor <10 0 - 13 IU/mL [facility] Specimen Plasma specimen Performing Organization Address City/[facility]ercode Phone Number [facility] DEPARTMENT OF PATHOLOGY AND [address] [place] [address] C3 complement component (03/22/2018 4:00 AM FRAME FEEDER) C3 complement 139 90 - 180 mg/dL [facility] Specimen Plasma specimen Performing Organization Address City/[facility] [employer] Phone Number [facility] DEPARTMENT OF PATHOLOGY AND [address] [place] [address] [place] [address] C4 complement component (03/22/2018 4:00 AM FRAME FEEDER) C4 complement 25 10 - 40 mg/dL [facility] Specimen Plasma specimen Performing Organization Address City/[facility] Phone Number [facility] DEPARTMENT OF PATHOLOGY AND [address] [place] [phone] [place] [address] ANNE (03/22/2018 4:00 AM FRAME FEEDER) ANNE screen Negative Negative [facility] Specimen Blood Performing Organization Address [facility] Phone Number [facility] DEPARTMENT OF PATHOLOGY AND [address] [place] [phone] [place] [address] Serum electrophoresis (03/22/2018 4:00 AM FRAME FEEDER) Protein 5.9 (L) 6.3 - 8.3 g/dL [facility] Comment: HOSPITAL 4.6-7.0 g/dL 1 week 4.4-7.6 g/dL 7 months-1year5.1-7.3 g/dL 1-2 years5.6-7.5 g/dL >3 years6.0-8.0 g/dL 18-150 6.3-8.3 g/dL SPE albumin 3.57 (L) 4.00 - 5.30 g/dL [facility] SPE alpha 1 0.15 0.10 - 0.25 g/dL [facility] SPE alpha 2 0.70 0.58 - 0.84 g/dL [facility] SPE beta 0.94 0.50 - 1.10 g/dL [facility] SPE gamma 0.54 (L) 0.60 - 1.30 g/dL [facility] SPE extended See Comment [facility] interpretation Comment: HOSPITAL Total protein and albumin are decreased suggesting protein malnutrition. Gamma globulins are slightly decreased.646 SPE interpretation See CommentComment: [facility] AZLEMARCIAL Camacho, PhD; HOSPITAL Mally Phillips MD; Toribio Mcgrath MD, PhD Specimen Serum Performing Organization Address City/State/Zipcode Phone Number [facility] DEPARTMENT OF PATHOLOGY AND [address] [place] [phone] Urine protein electrophoresis, 24 hour (03/21/2018 5:30 PM FRAME FEEDER) Collection start date, 03-21-18 [facility] Collection start time, 17:30 [facility] Collection stop date, 03/22/18 [facility] Collection stop time, 17:30 [facility] Hours of collection 24 [facility] Total volume, urine 2,350 mL [facility] Urine protein 103 mg/dL [facility] Urine protein 24 hr 2,421 (H) 0 - 150 mg/24hrs [facility] UPE albumin 81.7 % [facility] UPE globulin 18.3 % [facility] UPE extended See Comment [facility] interpretation Comment: HOSPITAL An abnormal 24 hour urine protein study with proteinuria of 2421 mg/24 hours. The proteinuria is in a glomerular pattern.646 UPE interpretation See CommentComment: [facility] AZLEMARCIAL Camacho, PhD; [facility] Mally Vasquez MD; Toribio Mcgrath MD, PhD Specimen Urine Performing Organization Address City/[facility]/Zipcode Phone Number [facility] DEPARTMENT OF PATHOLOGY AND [address] [place] [address] Creatinine clearance, urine, 24 hour (03/21/2018 5:30 PM FRAME FEEDER)Only the most recent of2 resultswithin the time period is included. Collection start date, 03-21-18 [facility] Collection start time, 17:30 [facility] Collection stop date, 03/22/18 [facility] Collection stop time, 17:30 [facility] Hours of collection 24 [facility] Total volume, urine 2,350 mL [facility] Creatinine 2.74 (H) 0.70 - 1.20 mg/dL [facility] Urine creatinine 78 mg/dL [facility] concentration [facility] Urine creatinine 1,833 mg/vol [facility] excretion [facility] Creat clearance, urine 24 46 mL/min [facility] hr calc Comment: [facility] CREATININE CLEARANCE REFERENCE RANGE: MALES 85 - 125 ML/MIN/1.73 SQ.METER FEMALES 75 - 115 ML/MIN/1.73 SQ.METER Specimen Urine Performing Organization Address City/[facility] Phone Number [facility] DEPARTMENT OF PATHOLOGY AND [address] [place] [address] GENOMIC MEDICINE [facility] [address] [place] [address] [place] Renal (03/21/2018 11:18 AM FRAME FEEDER) Narrative Performed At EXAMINATION:[facility] CLINICAL HISTORY:Renal failureacute (kidney injury) COMPARISON:None. FINDINGS: The kidneys are normal in size and echogenicity. There is no evidence of renal mass, calculi, or hydronephrosis. The right kidney measures 13.3 x 6.5 x 6.7 cm The left kidney measures 12.9 x 6.7 x 5.7 cm The urinary bladder is unremarkable. IMPRESSION: Mild-moderate renal cortical atrophy is present. [facility]-[id number] Procedure Note Interface, Radiology Results Incoming - 03/21/2018 1:39 PM FRAME FEEDER EXAMINATION: US RENAL CLINICAL HISTORY: Renal failure acute (kidney injury) COMPARISON: None. FINDINGS: The kidneys are normal in size and echogenicity. There is no evidence of renal mass, calculi, or hydronephrosis. The right kidney measures 13.3 x 6.5 x 6.7 cm The left kidney measures 12.9 x 6.7 x 5.7 cm The urinary bladder is unremarkable. IMPRESSION: Mild-moderate renal cortical atrophy is present. [facility]-[id number] Performing Organization Address City/[facility] Phone Number [facility] [address] [place] [address] Urinalysis screen and microscopy, with reflex to culture (03/21/2018 6:47 AM FRAME FEEDER)Only the most recent of2 resultswithin the time period is included. Specimen site Clean catch [facility] Color, UA Yellow [facility] Appearance, UA Clear [facility] Specific gravity, UA 1.014 1.001 - 1.035 [facility] pH, UA 5.0 5.0 - 8.5 [facility] Protein, UA 3+ (A) Negative [facility] Glucose, UA 1+ (A) Negative [facility] Ketones, UA Negative Negative [facility] Bilirubin, UA Negative Negative [facility] Blood, UA Negative Negative [facility] Nitrite, UA Negative Negative [facility] Urobilinogen, UA <2.0 <2.0 [facility] Leukocyte esterase, UA Negative Negative [facility] Epithelial cells, UA <1 /HPF [facility] WBC, UA None seen 0 - 1 /HPF [facility] RBC, UA 1 0 - 5 /HPF [facility] Bacteria, UA None seen None seen [facility] Yeast, UA None seen [facility] Yeast with pseudohyphae, UA None seen [facility] Hyaline casts, UA >20 (A) /LPF [facility] Specimen Urine Performing Organization Address City/[facility]ode Phone Number [facility] DEPARTMENT OF PATHOLOGY AND [address] [place] [address] Urine culture (03/21/2018 6:47 AM FRAME FEEDER)Only the most recent of2 resultswithin the time period is included. Urine culture SEE COMMENTComment: Bacteriuria [facility] screen negative. Performing Organization Address City/[facility] Cent[facility]ode Phone Number [facility] DEPARTMENT OF PATHOLOGY AND [address] [place] [address] Thyroid stimulating hormone (03/21/2018 4:17 AM FRAME FEEDER)Only the most recent of3 resultswithin the time period is included. TSH 1.15 0.27 - 4.20 uIU/mL [facility] Specimen Plasma specimen Performing Organization Address City/[facility] Phone Number [facility] DEPARTMENT OF PATHOLOGY AND [address] [place] [address] T4, free (03/21/2018 4:17 AM FRAME FEEDER)Only the most recent of3 resultswithin the time period is included. T4, free 0.8 (L) 0.9 - 1.7 ng/dL [facility] Specimen Plasma specimen Performing Organization Address City/[facility]ode Phone Number [facility] DEPARTMENT OF PATHOLOGY AND [address] [place] [address] [facility] [address] [place] [phone] Lipid panel (03/21/2018 4:17 AM FRAME FEEDER)Only the most recent of3 resultswithin the time period is included. Cholesterol 165 <200 mg/dL [facility] Triglycerides 347 (H) <150 mg/dL [facility] HDL cholesterol 34 (L) >40 mg/dL [facility] LDL cholesterol 99Comment: Result obtained <100 mg/dL [facility] by direct LDL measurement [facility] Lipid panel interpretation SeeBelow [facility] Comment: HOSPITAL Total Cholesterol (mg/dL) <200 Desirable 053-190Dizlrvtqbe-ahcq >=240High Triglycerides (mg/dL) <150 Normal 420-386Ryvkbzogyk-meju 200-499High >=500Very high HDL Cholesterol (mg/dL) <40Low (male) <40Low (female) LDL Cholesterol (mg/dL) <100 Optimal 100-129Near or above optimal 805-403Uvxlqlmyvv-qvoj 160-189High >=190Very high Risk Catergories that modify [...] specimen Performing Organization Address City/State/Zipcode Phone Number [facility] DEPARTMENT OF PATHOLOGY AND [address] [place] [phone] [address] Troponin (03/20/2018 11:58 PM FRAME FEEDER)Only the most recent of4 resultswithin the time period is included. Troponin <0.30 0.00 - 0.30 ng/mL [facility] Comment: 0.30 - 1.49 ng/mlMay indicate increased risk of acute coronary syndrome. >=1.5 ng/mlConsistent with acute myocardial infarction. The diagnostic value of a single normal or non-diagnostic result is questionable.Serial samples at 2-6 hour intervals are required to rule out acute myocardial injury. Specimen Plasma specimen Performing Organization Address City/State/Zipcode Phone Number [facility] DEPARTMENT OF PATHOLOGY AND [address] [place] [address] [address] Hemoglobin A1c (03/20/2018 11:58 PM FRAME FEEDER)Only the most recent of3 resultswithin the time period is included. Hemoglobin A1C 9.1 (H) 4.0 - 5.6 % [facility] Comment: HbA1c cutoffs for diagnosing diabetes: 4.0% - 5.6%=normal 5.7% - 6.4%=increased risk for diabetes (prediabetes) >=6.5%=diabetes Goals for glycemic control (ADA 2016) < 7.0%Target for non adults with diabetes. More or less stringent targets may be appropriate for individual patients. <7.5% Target for Children and adolescents with type 1 diabetes. Specimen Blood Performing Organization Address City/State/Zipcode Phone Number [facility] DEPARTMENT OF PATHOLOGY AND [address] [place] [phone] [place] [address] XR Chest 1 Vw Portable (03/20/2018 11:33 PM FRAME FEEDER) Narrative Performed At EXAMINATION:XR CHEST 1 VW PORTABLE [facility] CLINICAL HISTORY: Shortness of breath COMPARISON:11/27/2013 IMPRESSION: No radiographic evidence for acute cardiopulmonary process. Cardiomediastinal silhouette is within normal limits of size. No focal or confluent airspace consolidation is seen on this single AP plane to suggest acute pneumonia. No sizable pleural effusion. No pneumothorax identified. No acute osseous abnormalities are visualized. [facility]-[id number] Procedure Note Hm Interface, Radiology Results Incoming - 03/20/2018 11:40 PM FRAME FEEDER EXAMINATION: XR CHEST 1 VW PORTABLE CLINICAL HISTORY: Shortness of breath COMPARISON: 11/27/2013 IMPRESSION: No radiographic evidence for acute cardiopulmonary process. Cardiomediastinal silhouette is within normal limits of size. No focal or confluent airspace consolidation is seen on this single AP plane to suggest acute pneumonia. No sizable pleural effusion. No pneumothorax identified. No acute osseous abnormalities are visualized. [facility]-[id number] Performing Organization Address City/State/Zipcode Phone Number [facility] [address] [place] [address] CT Head Wo Contrast (03/20/2018 11:16 PM FRAME FEEDER)Only the most recent of2 resultswithin the time [...] normal. IMPRESSION: No acute intracranial abnormality identified. [facility]-[id number] Procedure Note Hm Interface, Radiology Results Incoming - 03/20/2018 11:23 PM FRAME FEEDER EXAMINATION: CT HEAD WO CONTRAST CLINICAL HISTORY: [...] normal. IMPRESSION: No acute intracranial abnormality identified. [facility]-[id number] Performing Organization Address [facility]/Zipcode Phone Number [facility] [address] [place] [address] Partial thromboplastin time, activated (03/20/2018 5:28 PM FRAME FEEDER)Only the most recent of2 resultswithin the time period is included. PTT 27.5 23.0 - 36.0 sec [facility] Comment: PTT therapeutic range for unfractionated heparin is 61.0-112.0 seconds which corresponds to Anti-Xa 0.3-0.7 U/ml. Specimen Blood Performing Organization Address [facility] Phone Number [facility] DEPARTMENT OF PATHOLOGY AND [address] [place] [phone] Prothrombin time with INR (03/20/2018 5:28 PM FRAME FEEDER)Only the most recent of2 resultswithin the time period is included. Prothrombin time 13.2 11.5 - 14.5 sec [facility] INR 1.0 [facility] Comment: HOSPITAL The International Normalized Ratio (INR) is a therapeutic monitoring tool for patients who are stable on oral anticoagulant therapy. An INR of 2.0-3.0 is suggested for deep vein thrombosis/pulmonary embolism. Specimen Blood Performing Organization Address [facility] Phone Number [facility] DEPARTMENT OF PATHOLOGY AND [address] [place] [phone] [place] [address] Comprehensive metabolic panel (03/20/2018 5:28 PM FRAME FEEDER)Only the most recent of2 resultswithin the time period is included. Sodium 139 135 - 148 mEq/L [facility] Potassium 4.8 3.5 - 5.0 mEq/L [facility] Chloride 103 98 - 112 mEq/L [facility] CO2 22 (L) 24 - 31 mEq/L [facility] Anion gap 14@ANIO 7 - 15 mEq/L [facility] BUN 57 (H) 6 - 20 mg/dL [facility] Creatinine 2.49 (H) 0.70 - 1.20 mg/dL [facility] Glucose 332 (H) 65 - 99 mg/dL [facility] Calcium 8.9 8.3 - 10.2 mg/dL [facility] Protein 6.1 (L) 6.3 - 8.3 g/dL [facility] Comment: HOSPITAL 4.6-7.0 g/dL 1 week 4.4-7.6 g/dL 7 months-1year5.1-7.3 g/dL 1-2 years5.6-7.5 g/dL >3 years6.0-8.0 g/dL 18-150 6.3-8.3 g/dL Albumin 2.9 (L) 3.5 - 5.0 g/dL [facility] A/G ratio 0.9 0.7 - 3.8 [facility] Alkaline phosphatase 70 40 - 129 U/L [facility] AST 19 10 - 50 U/L [facility] ALT 19 5 - 50 U/L [facility] Total bilirubin 0.3 0.0 - 1.2 mg/dL [facility] Specimen Plasma specimen Performing Organization Address City/State/Zipcode Phone Number [facility] DEPARTMENT OF PATHOLOGY AND [address] [place] [address] GEN[address] [address] ECG 12 lead (03/20/2018 5:24 PM FRAME FEEDER)Only the most recent of2 resultswithin the time period is included. Ventricular rate 58 [facility] Atrial rate 58 [facility] DE interval 138 [facility] QRSD interval 146 [facility] QT interval 474 [facility] QTC interval 465 [facility] P axis 1 29 [facility] QRS axis 1 76 [facility] T wave axis 34 [facility] EKG impression Sinus bradycardia-Right bundle branch [facility] MUSE block-Abnormal ECG-In automated comparison with ECG of 07-FEB-2018 10:01,-No significant change was found- Narrative Performed At Performing Organization Address [facility] Phone Number [facility] [address] [place] [address] XR Forearm 2 Vw Right (02/13/2018 11:25 AM CDT) Narrative Performed At EXAMINATION:XR FOREARM 2 VW RIGHT [facility] CLINICAL HISTORY:right forearm pain COMPARISON:none. IMPRESSION: 1.No displaced fractures or dislocations. IV catheter noted along the volar aspect of the forearm. [facility]-[id number] Procedure Note Interface, Radiology Results Incoming - 02/13/2018 11:44 AM CDT EXAMINATION: XR FOREARM 2 VW RIGHT CLINICAL HISTORY: right forearm pain COMPARISON: none. IMPRESSION: 1. No displaced fractures or dislocations. IV catheter noted along the volar aspect of the forearm. [facility]-[id number] Performing Organization Address [facility] Phone Number [facility] [address] [place] [address] [place] Modified Barium Swallow (02/13/2018 10:26 AM CDT) Narrative Performed At EXAMINATION:[place] MODIFIED BARIUM SWALLOW HM [facility] CLINICAL HISTORY:Dysphagiaunexplained history of CVA COMPARISON:None. [...] to Speech Pathology report for further details. [facility]-[id number] Procedure Note Interface, Radiology Results Incoming - [...] to Speech Pathology report for further details. [facility]-[id number] Performing Organization Address [facility] Phone Number [facility] [address] [place] [address] Cardiac mri stroke eval w contrast (02/12/2018 12:06 PM CDT) Narrative Performed At [facility] Muslim CMR Report Name:PAOLA KWONG :1965 Scan Date: [...] Lateral | Normal/Hyper | None ||| | [place] | Normal/Hyper | None ||| + + [...] SCAN INFO GENERAL CONTRAST AGENT TYPE:[employer] LOT NUMBER:[id number] EXPIRATION DATE:2018-09-26 00:00:00 VOLUME ADMINISTERED:26 ml DOSAGE FOR 0.5M:0.15 mmol/kg SERUM CREATININE:1.5 sCr GFR:52.65 ml/min/1.73m^2 CREATININE DATE:2018-02-12 00:00:00 SEDATION SEDATION USED?:Yes TYPE:Lorazepam DOSE:0.5 mg ANY REACTION?:No PULSE SEQUENCES Single-Shot SSFP, IR SSFP - Single Shot, SSFP Cine, Phase Contrast Velocity Mapping, 3D MRA w and w/o contrast, Time-Resolved 3D MRA SETUP TYPE:Clinical INPATIENT:Yes LOCATION:[facility] INCOMPLETE SCAN:No REASON(S) FOR SCAN:Stroke Evaluation REFERRING PHYSICIAN:Usha Oquendo MD ATTENDING PHYSICIAN:USHA LICEA TECHNICIANS:1) Danielle CASIANO Patient Account [id number] CPT Codes 77357, 99236 ICD10 Codes G45.9 Report generated by [employer], [...] Normal/Hyper | None | | | | [place] | Normal/Hyper | None | | | [...] GENERAL CONTRAST AGENT TYPE: [employer] LOT NUMBER: [id number] EXPIRATION DATE: 2018-09-26 00:00:00 VOLUME ADMINISTERED: 26 [...] MRA SETUP TYPE: Clinical INPATIENT: Yes LOCATION: [facility] INCOMPLETE SCAN: No REASON(S) FOR SCAN: Stroke Evaluation REFERRING PHYSICIAN: Usha Oquendo MD ATTENDING PHYSICIAN: USHA LICEA TECHNICIANS: 1) Danielle CASIANO BILLING Patient Account [id number] CPT Codes 52769, 76260 ICD10 Codes G45.9 Report generated by [employer], a product of [employer] Performing Organization Address [facility] Phone Number [facility] [address] [place] [address] CT Sinus Wo Contrast (02/11/2018 8:24 PM CDT) Narrative Performed At EXAMINATION:CT SINUS WO CONTRAST [facility] CT IMAGING WAS PERFORMED WITH ITERATIVE RECONSTRUCTION [...] on the left. IMPRESSION: No significant abnormality. [facility]-[id number] Procedure Note Interface, Radiology Results Incoming - [...] on the left. IMPRESSION: No significant abnormality. [facility]-[id number] Performing Organization Address [facility] Phone Number [facility] [address] [place] [address] Vitamin D 25 hydroxy level (02/11/2018 4:30 AM CDT) Vitamin D, 25-hydroxy 6.5 (L) 30.0 - 150.0 [facility] DEPARTMENT OF Comment: ng/mL PATHOLOGY AND [...] alternative methods. Specimen Blood Performing Organization Address [facility] Cent[facility] Phone Number [facility] DEPARTMENT OF PATHOLOGY AND [address] [place] [address] Lipase level (02/11/2018 4:30 AM CDT) Lipase 77 (H) 13 - 60 U/L [facility] DEPARTMENT OF PATHOLOGY AND [employer] [facility] Specimen Plasma specimen Performing Organization Address [facility] Phone Number [facility] DEPARTMENT OF PATHOLOGY AND [address] [place] [address] Amylase level (02/11/2018 4:30 AM CDT) Amylase 71 28 - 100 U/L [facility] DEPARTMENT OF PATHOLOGY AND GENOMIC MEDICINE Specimen Plasma specimen Performing Organization Address [facility] Cent[facility]ode Phone Number [facility] DEPARTMENT OF PATHOLOGY AND [address] [place] [address] MRI Brain Wo Contrast (02/10/2018 12:02 PM [...] recent infarct in the right posterior medulla. [facility]-[id number] Procedure Note Interface, Radiology Results Incoming - [...] recent infarct in the right posterior medulla. [facility]-[id number] Performing Organization Address City/State/Zipcode Phone Number [facility] [address] [place] [address] Echocardiogram complete w contrast and 3D if needed (02/09/2018 8:20 AM CDT) Narrative Performed At [facility] Echocardiography Report [address] [address], [place] [address] Pat.Name:PAOLA KWONG Pat.ID:[id number] .Date: 02/09/2018Reffletcher.MD:MILTON ELLINGTON MD Exam Time: 7:43:00 AMStudy Type:Routine Echo Height:67inBSA: 1.97 m2 DOBAge:1965,52YSex: MALE BP:127/63HR: 68 bpm Sonogrphr: Rosemary Slater RDCS, RVTPat. Stat.:Inpatient Room:[address] Study Status:Final Echo Event ID:[id number] Order ID:[id number] Reason for Study:Stroke History / Clinical:Chest Pain, Diabetes, Hyperlipidemia, Hypertension, Cirrhosis, [place], Infectious Viral Hepatitis Procedures:2D Echo, Colorflow Doppler, [...] PA systolic pressure. MEASUREMENTS: 2D Parasternal [place] LVOT 2.2 cmLA Ds4.2 cm LVIDd5 cmIndex2.5 cm/m Ao An2.5 cm LVIDs2.8 cmAo Rtd 3.4 cm Index1.7 cm/m LV%fs 44 % LV Plgq189.4 g(122-174) IVSd 1 cmLVM Index 98.7 g/m2 LVPWd1.1 cmRWT0.4 LA Sng Plane LA Area 24.3 cm2(8.8-23.4) LA Vol78.5 ml Index39.8 ml/m LA LngAx 6.5 cm DOPPLER LVOT Stroke Vol LVOT 2.2 cmLVOT CO4.9 l/min LVOT TVI21.7 cmLVOT CI2.5 l/m/m2 LVOT Tm382 jlriQV50 bpm LVOT SV 82.6 ml Signed 02/09/2018 02:05 PM Tulio Daniels M.D. Procedure Note Interface, Radiology Results In - 02/09/2018 2:05 PM CDT Echocardiography Report [address] [place] [address] Pat.Name: PAOLA KWONG Pat.ID: [id number] .Date: 02/09/2018 Refer.MD: MILTON ELLINGTON MD Exam Time: 7:43:00 AM Study Type:Routine Echo Height: 67in BSA: 1.97 m2 Age: 4 1965,52Y Sex: MALE BP: 127/63 HR: 68 bpm Sonogrphr: Rosemary Slater RDCS, RVT Pat. Stat.:Inpatient Room: [address] Study Status:Final Echo Event ID:[id number] Order ID: [id number] Reason for Study:Stroke History / Clinical:Chest Pain, Diabetes, Hyperlipidemia, Hypertension, Cirrhosis, [place], Infectious Viral Hepatitis Procedures:2D Echo, Colorflow Doppler, [...] PA systolic pressure. MEASUREMENTS: 2D Parasternal [place] LVOT 2.2 cm LA Ds 4.2 cm [...] PM Tulio Daniels M.D. Performing Organization Address City/State/Zipcode Phone Number [facility] [address] [place] [address] Glucose level (02/08/2018 8:33 PM CDT) Glucose 502 (HH) 65 - 99 mg/dL [facility] DEPARTMENT OF PATHOLOGY AND GENOMIC MEDICINE Specimen Plasma specimen Performing Organization Address City/[facility] Phone Number [facility] DEPARTMENT OF PATHOLOGY AND [address] [place] [address] Potassium level (02/08/2018 3:27 PM CDT) Potassium 4.3 3.5 - 5.0 mEq/L [facility] DEPARTMENT OF PATHOLOGY AND GENOMIC MEDICINE Specimen Plasma specimen Performing Organization Address City/[facility] Cent[facility]ode Phone Number [facility] DEPARTMENT OF PATHOLOGY AND [address] [place] [address] Magnesium level (02/08/2018 3:27 PM CDT) Magnesium 2.0 1.6 - 2.6 mg/dL [facility] DEPARTMENT OF PATHOLOGY AND GENOMIC MEDICINE Specimen Plasma specimen Performing Organization Address [facility] Phone Number [facility] DEPARTMENT OF PATHOLOGY AND [address] [place] [address] MRI Lumbar Spine Wo Contrast (02/08/2018 9:03 [...] bilateral foraminal narrowing. No central canal narrowing. [facility]-[id number] Procedure Note Interface, Radiology Results Incoming - [...] bilateral foraminal narrowing. No central canal narrowing. [facility]-[id number] Performing Organization Address [facility] Phone Number [facility] [address] [place] [address] MRI Thoracic Spine Wo Contrast (02/08/2018 8:49 [...] or foraminal narrowing in the thoracic spine. [facility]-[id number] Procedure Note Hm Interface, Radiology Results Incoming [...] or foraminal narrowing in the thoracic spine. [facility]-[id number] Performing Organization Address [facility] Phone Number [facility] [address] [place] [address] MRI Cervical Spine Wo Contrast (02/08/2018 8:30 [...] nerve roots. No significant spinal canal stenosis. [facility]-[id number] Procedure Note [facility], Radiology Results - 02/08/2018 9:06 AM CDT [...] nerve roots. No significant spinal canal stenosis. [facility]-[id number] Performing Organization Address City/[facility]/Zipcode Phone Number [facility] [address] [place] [address] Urine drugs of abuse screen (02/08/2018 1:00 AM CDT) Amphetamine screen, urine Negative [facility] DEPARTMENT OF PATHOLOGY AND GENOMIC MEDICINE Barbiturate screen, urine Negative [facility] DEPARTMENT OF PATHOLOGY AND GENOMIC MEDICINE Benzodiazepine screen, Negative [facility] DEPARTMENT OF urine PATHOLOGY AND GENOMIC MEDICINE Cannabinoid screen, urine Negative [facility] DEPARTMENT OF PATHOLOGY AND GENOMIC MEDICINE Cocaine screen, urine Negative [facility] DEPARTMENT OF PATHOLOGY AND GENOMIC MEDICINE Methadone metabolite Negative [facility] DEPARTMENT OF (EDDP), urine PATHOLOGY AND GENOMIC MEDICINE Opiates screen, urine Negative [facility] DEPARTMENT OF PATHOLOGY AND GENOMIC MEDICINE Oxycodone screen, urine Negative [facility] DEPARTMENT OF PATHOLOGY AND GENOMIC MEDICINE Phencyclidine screen, urine Negative [facility] DEPARTMENT OF PATHOLOGY AND GENOMIC MEDICINE Tricyclic screen, urine Negative [facility] DEPARTMENT OF Comment: PATHOLOGY AND GENOMIC Drug screen minimum concentration of detectability MEDICINE Qimfwrbbyyov2502 ng/mL Barbiturates 200 ng/mL Nvweutcfyukjgvv898 ng/mL Zmzkije368 ng/mL Akhzpayti485 ng/mL Mgqdqkj004 ng/mL Ijjakkjpq685 ng/mL Phencyclidine 25 ng/mL Oksyewcxuckd82 ng/mL Soosvjjcjn2598 ng/mL Negative test results indicates presumptive evidence of lack of clinically significant drug concentration in this urine specimen. Positive test results are presumptive evidence of clinically significant drug concentration in this urine specimen. Testing performed for medical purposes only. Specimen Urine Performing Organization Address City/[facility] Centercode Phone Number [facility] DEPARTMENT OF PATHOLOGY AND [address] [place] [address] [employer] MEDICINE Sedimentation rate (02/08/2018 1:00 AM CDT) Sedimentation rate 48 (H) 0 - 10 mm/hr [facility] DEPARTMENT OF PATHOLOGY AND GENOMIC MEDICINE Specimen Blood Performing Organization Address [facility] Phone Number [facility] DEPARTMENT OF PATHOLOGY AND [address] [place] [address] Syphilis treponemal IgG (02/07/2018 9:55 PM CDT) Syphilis treponemal IgG Non-reactiveComment: Non-reactive [facility] DEPARTMENT OF Non-reactive: No PATHOLOGY AND GENOMIC serological evidence of MEDICINE Syphilis infection Specimen Serum Performing Organization Address [facility] Phone Number [facility] DEPARTMENT OF PATHOLOGY AND [address] [place] [address] HIV Ag/Ab combination (02/07/2018 9:55 PM CDT) HIV Ag/Ab combination Non-reactive Non-reactive [facility] DEPARTMENT OF PATHOLOGY AND GENOMIC MEDICINE Specimen Blood Performing Organization Address [facility] Phone Number [facility] DEPARTMENT OF PATHOLOGY AND [address] [place] [address] Homocystine, plasma (02/07/2018 9:54 PM CDT) Homocysteine 16.5 (H) 0.0 - 15.0 umol/L [facility] DEPARTMENT OF Comment: PATHOLOGY AND GENOMIC The risk for coronary vascular disease increases progressively MEDICINE with homocysteine concentration.A 3.4 times greater risk is associated with a homocysteine concentration of greater than 15.8 umol/L as compared to a concentration below 14.1 umol/L. Specimen Plasma specimen Performing Organization Address [facility] Phone Number [facility] DEPARTMENT OF PATHOLOGY AND [address] [place] [address] C-reactive protein (02/07/2018 9:54 PM CDT) CRP 0.39 0.00 - 0.50 mg/dL [facility] DEPARTMENT OF PATHOLOGY AND GENOMIC MEDICINE Specimen Plasma specimen Performing Organization Address [facility] Phone Number [facility] DEPARTMENT OF PATHOLOGY AND [address] [place] [address] Folate level (02/07/2018 9:54 PM CDT) Folate 18.4 4.8 - 24.2 ng/mL [facility] DEPARTMENT OF PATHOLOGY AND GENOMIC MEDICINE Specimen Serum Performing Organization Address [facility] Phone Number [facility] DEPARTMENT OF PATHOLOGY AND [address] [id number] [facility] Vitamin B12 level (02/07/2018 9:54 PM CDT) Vitamin B12 687 211 - 946 pg/mL [facility] DEPARTMENT OF PATHOLOGY Comment: AND [facility] Significant overlap exists between normal and deficiency states. However, most patients with deficiencies will have Serum B12 <200 pg/mL. Specimen Serum Performing Organization Address [facility] Phone Number [facility] DEPARTMENT OF PATHOLOGY AND [address] MRI Face Wo Contrast (02/07/2018 7:19 PM CDT) Narrative Performed At EXAMINATION:MRI FACE WO CONTRAST [facility] CLINICAL HISTORY:Possible fracture COMPARISON:MRI brain February [...] IMPRESSION: Limited examination demonstrating no acute abnormality. [facility]-[id number] Procedure Note Hm Interface, Radiology Results Incoming [...] IMPRESSION: Limited examination demonstrating no acute abnormality. [facility]-[id number] Performing Organization Address [facility] Centercode Phone Number [facility] [address] [place] [address] MRA Neck Wo Contrast (02/07/2018 7:19 PM [...] cervical vertebral arteries. IMPRESSION: No significant abnormality. [facility]-[id number] Procedure Note Interface, Radiology Results Incoming - [...] cervical vertebral arteries. IMPRESSION: No significant abnormality. [facility]-[id number] Performing Organization Address City/State/Zipcode Phone Number [facility] [address] [place] [address] MRA Head Wo Contrast (02/07/2018 6:53 PM [...] to that seen on the prior study. [facility]-[id number] Procedure Note Interface, Radiology Results - 02/07/2018 7:15 PM CDT EXAMINATION: MRA [...] to that seen on the prior study. [facility]-[id number] Performing Organization Address City/State/Zipcode Phone Number [facility] [address] [place] [address] C difficile toxin (02/07/2018 6:00 PM CDT) Clostridium difficile No Clostridium difficle toxin present [facility] DEPARTMENT OF toxin Comment: PATHOLOGY AND GENOMIC Specimen Information MEDICINE Specimen Source: Stool Specimen Site: Nonpreserved Specimen Stool - Nonpreserved Performing Organization Address City/[facility] Phone Number [facility] DEPARTMENT OF PATHOLOGY AND [address] [place] [id number] GENOMIC MEDICINE CTA Head W Wo Contrast (02/07/2018 2:25 PM CDT) Narrative Performed At EXAMINATION:CT ANGIOGRAM HEAD W WO CONTRAST [facility] CLINICAL HISTORY:ataxia COMPARISON:Head CT on 02/07/2018. TECHNIQUE: [...] is diffuse moderate stenosis of right P1-P3 HIDE BUFFER. There is normal contrast enhancement with no significant stenosis or occlusion along bilateral vertebral arteries, basilar artery, cerebellar arteries, and left HIDE BUFFER. The vertebral arteries are codominant. The posterior communicating arteries are not well-visualized. There is no evidence of cerebral aneurysm in the proximal [place] of [place]. There is no evidence of perfusion-weighted defect on CTA source images. IMPRESSION: 1. Diffuse moderate stenosis of right P1-P3 HIDE BUFFER. No significant stenosis or occlusion in remaining proximal [place] of [place]. 2. No evidence of perfusion-weighted defect on CTA source images. [facility]-[id number] Procedure Note Hm Interface, Radiology Results Incoming - 02/07/2018 2:39 [...] is diffuse moderate stenosis of right P1-P3 HIDE BUFFER. There is normal contrast enhancement with no significant stenosis or occlusion along bilateral vertebral arteries, basilar artery, cerebellar arteries, and left HIDE BUFFER. The vertebral arteries are codominant. The posterior communicating arteries are not well-visualized. There is no evidence of cerebral aneurysm in the proximal [place]. There is no evidence of perfusion-weighted defect on CTA source images. IMPRESSION: 1. Diffuse moderate stenosis of right P1-P3 HIDE BUFFER. No significant stenosis or occlusion in remaining proximal [place] of [place]. 2. No evidence of perfusion-weighted defect on CTA source images. [facility]-[id number] Performing Organization Address City/State/Zipcode Phone Number [facility] [address] [place] [address] CTA Neck W Wo Contrast (02/07/2018 2:12 PM CDT) Narrative Performed At EXAMINATION:CT ANGIOGRAM NECK W WO CONTRAST [facility] CLINICAL HISTORY:ataxia COMPARISON:None. TECHNIQUE: Neck CTA with [...] No significant carotid or vertebral artery stenosis. [facility]-[id number] Procedure Note [facility], Radiology Results Incoming - 02/07/2018 2:22 PM [...] No significant carotid or vertebral artery stenosis. [facility]-[id number] Performing Organization Address City/[facility]/Zipcode Phone Number [facility] [address] [place] [address] Blood culture, aerobic & anaerobic (02/07/2018 11:15 AM CDT)Only the most recent of2 resultswithin the time period is included. Blood culture isolate No growth after 5 days of incubation. [facility] DEPARTMENT OF Comment: PATHOLOGY AND GENOMIC Specimen Information MEDICINE Specimen Source: Blood Specimen Site: Hand, left Specimen Blood - Hand, left Performing Organization Address City/State/Zipcode Phone Number [facility] DEPARTMENT OF PATHOLOGY AND [address] [place] [address] GENOMIC MEDICINE ECG ED Preliminary Interpretation - NOT AN ORDER (02/07/2018 10:49 AM CDT) Narrative Performed At Derrek Mcgee DO 02/07/20184:02 PM ECG ED Preliminary Interpretation - Not an Order Performed by: DERREK MCGEE Authorized by: DERREK MCGEE ECG reviewed by ED Physician in the absence of a instrument maintenance supervisor: yes Interpretation: Interpretation: abnormal Rate: ECG rate:59 ECG rate assessment: bradycardic Rhythm: Rhythm: sinus bradycardia QRS: QRS axis:Normal QRS intervals:Normal Conduction: Conduction: abnormal Abnormal conduction: complete RBBB ST segments: ST segments:Normal T waves: T waves: normal Beta hydroxybutyrate (02/07/2018 10:30 AM CDT) Beta hydroxybutyrate 0.14 0.02 - 0.27 mmol/L [facility] DEPARTMENT OF PATHOLOGY AND GENOMIC MEDICINE Specimen Serum Performing Organization Address City/State/Zipcode Phone Number [facility] DEPARTMENT OF PATHOLOGY AND [address] [place] [address] GENOMIC MEDICINE after 07/28/2017 Insurance Payer Benefit Plan / Group Subscriber ID Type Phone Address PENDING MEDICAID PENDING DISABILITY MEDICAID xxxxxxxxx Medicaid COVERAGE ([place]) [address] [place], [place] [id number] Advance Directives Patient has advance care planning documents, and code status on file. For more information, please contact:Lefty Johnson[address] [place] [address] Code Status Date Activated Date Inactivated Comments [...]
[2018-07-29 02:47] LABS: Absolute Lymphocytes (CBC) 1.3 K/uL (0.7-4.9); Absolute Monocytes 0.3 K/uL (0.1-1.3); Absolute Neutrophil 2.2 K/uL (1.8-8.0); Basophils % 1.8 % (0-1.3); Eosinophils % 4.3 % (0-4.4); Hematocrit 39.4 % (39.6-49.0); Lymphocytes % 32.5 % (15.3-44.8); MPV 10.3 fL (7.6-11.3); Monocytes % 6.5 % (3.3-12.3); RBC Red Blood Cell Count 4.32 M/uL (4.33-5.43)
[2018-07-29 02:51] LABS: Protime INR 0.85
[2018-07-29] MEDS ORDERED: ONDANSETRON 4 MG/2 ML VIAL ONE ×3 (03:01→07:57)
[2018-07-29] MEDS ORDERED: LEVETIRACETAM 500 MG/5 ML VIAL IV ONE ×2 (03:26→03:48)
[2018-07-29] MEDS ORDERED: NA CHLORIDE 0.9% 100 ML IV ONE ×3 (03:26→05:44)
[2018-07-29 03:35] LABS: ALT/SGPT 30 U/L (12-78); AST/SGOT 20 U/L (15-37); Albumin 2.6 g/dL (3.4-5.0); Alkaline Phosphatase 115 U/L (45-117); Amylase Level 64 U/L (25-115); BUN Blood Urea Nitrogen 32 mg/dL (7-18); Bicarbonate 23 mmol/L (21-32); Bilirubin Direct < 0.1 mg/dL (0-0.2); Bilirubin Total 0.4 mg/dL (0.2-1.0); Creatine Phosphokinase 245 U/L (39-308); Lipase 510 U/L (73-393); Magnesium 2.2 mg/dL (1.8-2.4); Potassium 4.2 mmol/L (3.5-5.1); Protein, Total 6.5 g/dL (6.4-8.2); Sodium Level 129 mmol/L (136-145); Troponin (Emerg Dept Use Only) 0.02 ng/mL (0.0-0.045)
[2018-07-29] MEDS ORDERED: LORazepam 2 MG/ML VIAL ONE ×2 (03:35→08:40)
[2018-07-29 03:37] LABS: Glucose Level 1040 mg/dL (74-106)
[2018-07-29] MEDS ORDERED: INSULIN -REGULAR HUMAN 50 UNIT/0.5 ML ML ONE ×2 (04:18→05:43)
[2018-07-29] MEDS ORDERED: NA CHLORIDE 0.9% 1,000 ML ONE (05:50)
--- NOTE | 2018-07-29 07:36 | ER ---
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 Transition of care: patient was not received from another setting of care. Onset of symptoms was July 29, 2018. Risk Assessment: Do you want to hurt yourself or someone else? Patient reports no desire to harm self or others. Initial Sepsis Screen: Does the patient meet any 2 criteria? No. Patient's initial sepsis screen is negative. Does the patient have a suspected source of infection? No. Patient's initial sepsis screen is negative. Care prior to arrival: Medication(s) given: Normal saline infusion, 500 mL, IV initiated. 18 GA, in the right antecubital area. 02:40 Method Of Arrival: EMS: [facility] lp1 02:40 Acuity: [facility] 2 lp1 Historical: - Allergies: 02:55 Codeine; lp1 02:55 Morphine; lp1 - Home Meds: 02:55 gabapentin 300 mg oral cap [Active]; furosemide 40 mg Oral tab 1 tab 2 times per day lp1 [Active]; citalopram 20 mg tab 1 tab once daily [Active]; Plavix 75 mg Oral tab 1 tab once daily [Active]; aspirin 81 mg Oral TbEC 1 tab once daily [Active]; - PMHx: 02:55 CAD; CVA; Diabetes - NIDDM; High Cholesterol; Hypertension; Myocardial infarction; lp1 neuropathy; - Immunization history:: Adult Immunizations unknown. - Ebola Screening: : No symptoms or risks identified at this time. - Social history:: Smoking status: Patient uses tobacco products, smokes one pack cigarettes per day. Screenin:00 Abuse screen: Denies threats or abuse. Denies injuries from another. Nutritional lp1 screening: No deficits noted. Tuberculosis screening: No symptoms or risk factors identified. Fall Risk Total Morales Fall Scale indicates High Risk Score (45 or more points). Fall prevention measures have been instituted. Side Rails Up X 2 Frequent Obs/Assessments Occuring Family Present and informed to notify staff if the need to leave the bedside As available patient and family educated on Fall Prevention Program and Strategies. Assessment: 02:45 General: Appears uncomfortable, unkempt, Behavior is anxious, Patient states "I just lp1 feel like shit". Pain: Denies pain. Neuro: Level of Consciousness is awake, confused, Oriented to person, Pupils are PERRLA. Cardiovascular: Patient's skin is warm and dry. Respiratory: Respiratory effort is even. GI: Abdomen is non-distended, Reports nausea. : No signs and/or symptoms were reported regarding the genitourinary system. EENT: No signs and/or symptoms were reported regarding the EENT system. Derm: Skin is intact, Skin is dry, Skin is normal, Reports Feeling hot all over. Musculoskeletal: Circulation, motion, and sensation intact. 03:30 Reassessment: Pt having another seizure at this time. Dr. Mims at bedside. Will aa1 administer additional 500mg Keppra IVPB. 04:30 Reassessment: Patient appears in no apparent distress at this time. Patient resting, lp1 eyes closed, respirations even. 05:30 Reassessment: Patient soiled bed linen; Assisted to bedside for linen change; Complaint lp1 of nausea, Provider notified. 06:00 Reassessment: Patient's , Caity, left phone number for any updates on patient; lp1 [phone]. 07:10 Reassessment: a serum glucose has been sent by Shellie LEACH due to glucose of greater than sg 500. 07:23 Reassessment: pt complaining of ABD pain and Upper Extremities at this time, sg notified. 08:45 Reassessment: Patient appears in no apparent distress at this time. Patient and/or sg family updated on plan of care and expected duration. Pain level reassessed. pt updated on POC and awaiting results at this time, reports the pain continues in his upper abd and epigastric area and requesting water, pt encouraged to remain NPO but pt family has provided water, informed that the water may be increasing the pain, pt stated understanding. 09:50 Reassessment: Patient appears in no apparent distress at this time. Patient and/or sg family updated on plan of care and expected duration. Pain level reassessed. pt reports his IV in the RAC has become dislodge, no bleeding noted but a pressure dressing applied, IV in left forearm remains patent, IV fluids have been switched to the left fore arm, pt tolerated well, awaiting a bed assignment at this time. 10:30 Reassessment: Patient appears in no apparent distress at this time. Patient and/or sg family updated on plan of care and expected duration. Pain level reassessed. pt reports feeling sleepy, pt remains AA\\T\\Ox4 at this time, pt family at bedside, awaiting a bed assignment, pt and pt family stated understanding, will continue to monitor. 11:40 Reassessment: Patient appears in no apparent distress at this time. Patient and/or sg family updated on plan of care and expected duration. Pain level reassessed. pt left side lying position at this time, pt IV remains patent with fluids infusing as ordered, pt updated on bed assignment for ICU bed 3, pt family remains at bedside, will call report to receiving nurse Megan LEACH. 11:50 Reassessment: Patient appears in no apparent distress at this time. pt complaining of sg CP at this time, a 02/04, a repeat EKG has been ordered, will contact . 12:15 Reassessment: contacted and notified of pt reporting CP to Right Anterior sg chest wall, and shortness of breath, orders received to make sure ICU nurse obtains Cardiac Enzymes at 1500 today, handed off in report. Vital Signs: 02:30 BP 163 / 90; Pulse 97; Resp 18; Temp 97.9(O); Pulse Ox 97% on R/A; Weight 111.13 kg; lp1 Height 5 ft. 7 in. (170.18 cm); 03:59 BP 141 / 85; Pulse 96; Resp 16; Pulse Ox 97% on 2 lpm NC; aa1 04:20 BP 152 / 84; Pulse 95; Resp 20; Pulse Ox 97% on R/A; lp1 04:40 BP 132 / 79; Pulse 101; Resp 19; Pulse Ox 93% on R/A; lp1 05:00 BP 144 / 86; Pulse 96; Resp 17; Pulse Ox 96% on R/A; lp1 05:20 BP 136 / 86; Pulse 96; Resp 18; Pulse Ox 96% on R/A; lp1 06:00 BP 165 / 96; Pulse 98; Resp 19; Pulse Ox 96% on R/A; lp1 07:50 BP 142 / 77; Pulse 98; Resp 17; Pulse Ox 99% on R/A; tw2 10:00 BP 151 / 73; Pulse 82; Resp 16; Pulse Ox 100% on R/A; sg 11:00 BP 142 / 70; Pulse 81; Resp 16; Temp 98.1; Pulse Ox 99% on R/A; sg 11:50 BP 155 / 72; Pulse 87; Resp 17; Pulse Ox 100% on R/A; sg 02:30 Body Mass Index 38.37 (111.13 kg, 170.18 cm) lp1 ED Course: 02:16 Patient arrived in ED. ds1 02:16 Milton Mims MD is Attending Physician. tw4 02:20 Maintain EMS IV. Dressing intact. Good blood return noted. Site clean \\T\\ dry. Gauge \\T\\ aa 1 site: 18g RAC. 02:43 Triage completed. lp1 02:43 Arm band placed on left wrist. lp1 02:45 Patient has correct armband on for positive identification. Bed in low position. Side lp1 rails up X2. Seizure precautions initiated. clinical research monitor on. Pulse ox on. NIBP on. 02:58 X-ray completed. Portable x-ray completed in exam room. Patient tolerated procedure kw well. 03:02 CT Stroke Brain w/o Contrast In Process Unspecified. EDMS 03:06 Shellie Escobedo, RN is Primary Nurse. lp1 03:09 Stroke CXR 1 View In Process Unspecified. EDMS 03:31 Oxygen administration via nasal cannula \\T\\ 2L/min. aa1 03:37 Notified ED physician of a critical lab result(s). glucose 1040. fc 05:45 Inserted saline lock: 20 gauge in left forearm, using aseptic technique. By Student lp1 Nurse Candy Callaway, observed by Shellie Escobedo, HAYLEE. 07:33 Juancarlos Prince DO is Hospitalizing Provider. tw4 08:38 Patient moved to MRI via wheelchair. lc 08:45 Brain Wo Cont In Process Unspecified. EDMS 09:03 MRI completed. Patient tolerated well. Patient moved back from MRI. em2 12:17 EKG done, by tire service technician. reviewed by Osito Rehman MD Repeat EKG. at1 12:42 No provider procedures requiring assistance completed. Patient admitted, IV remains in sg place. intact, No redness/swelling at site. Administered Medications: 02:51 CANCELLED (Inappropriate at this time): Xopenex 0.63 mg Inhalation once tw4 02:57 Drug: Zofran 4 mg Route: IVP; Site: right antecubital; lp1 03:15 Follow up: Response: No adverse reaction lp1 03:25 Drug: Keppra 500 mg Route: IV; Rate: calculated rate; Site: right antecubital; aa1 03:40 Follow up: IV Status: Completed infusion aa1 03:40 Drug: Keppra 500 mg Route: IV; Rate: calculated rate; Site: right antecubital; aa1 04:09 Drug: Insulin Regular Human 10 units {Co-Signature: lp1 (Shellie Escobedo RN).} Route: IVP; aa1 Site: right antecubital; 06:09 Follow up: Response: No change in condition lp1 04:32 CANCELLED (Duplicate Order): Keppra 500 mg IV at calculated rate once lp1 05:40 Drug: Zofran 4 mg Route: IVP; Site: right antecubital; lp1 06:16 Follow up: Response: Nausea is decreased lp1 06:07 CANCELLED (Physician Discretion): Insulin Drip 6 units/hr - (Insulin Regular Human 100 lp1 units, NS 0.9% 100 ml) IV at calculated rate continuous; Standard concentration 1unit/ml; Dose for DKA is 0.1 units/kg/hr 06:07 Drug: NS 0.9% 1000 ml Route: IV; Rate: 1 bolus; Site: right antecubital; lp1 07:35 Follow up: Response: No adverse reaction; IV Status: Completed infusion; IV Intake: sg 990ml 06:08 Drug: Insulin Drip - (Insulin Regular Human 100 units, NS 0.9% 100 ml) {Co-Signature: [email or web address] aa1 (Anastasia Rutherford RN).} {Note: Verbal order to begin at 10 units/hr.} Route: IV; Rate: calculated rate; Site: right antecubital; 07:47 Drug: Zofran 4 mg Route: IVP; Site: left forearm; tw2 08:25 Follow up: Response: No adverse reaction; Nausea is decreased sg 07:48 Drug: TORadol 30 mg Route: IVP; Site: left forearm; tw2 08:35 Follow up: Response: No adverse reaction; Pain is unchanged, physician notified sg 08:36 Drug: Ativan 0.5 mg Route: IVP; Site: left forearm; sg 09:00 Follow up: Response: No adverse reaction; Anxiety decreased sg Point of Care Testing: Blood Glucose: 02:33 Blood Glucose: High (>450 mg/dL); lp1 04:45 Blood Glucose: High (>450 mg/dL); lp1 07:09 Blood Glucose: High (>450 mg/dL); lp1 Ranges: Intake: 07:35 IV: 990ml; Total: 990ml. sg Output: 07:21 Urine: 1500ml (Voided); Total: 1500ml. sg Outcome: 07:36 Decision to Hospitalize by Provider. tw4 12:35 Admitted to ICU accompanied by nurse, accompanied by tech, family with patient, via sg stretcher, room 3, with chart, Report called to Bedside report given to Tierra LEACH 12:35 Condition: stable 12:35 Instructed on the need for admit, safety practices, Demonstrated understanding of instructions. 12:41 Patient left the ED. sg Signatures: Dispatcher [employer] EDMS Loki Miranda RN RN Anastasia Rutherford RN RN aa1 Sherrill Correa Felicia RN HAYLEE Chelsea Keita dsShauna Ceballos Laura RN RN lp1 Kilo Suresh em2 Marita Sneed, house calls nurse EKG Tat1 Leslye Calderon RN RN tw2 Milton Mims MD MD tw4 Shellie Escobedo RN lp1 Anastasia Rutherford RN aa1 Corrections: (The following items were deleted from the chart) 05:07 05:00 BP 132 / 79; Pulse 101bpm; Resp 19bpm; Pulse Ox 93% RA; lp1 lp1 05:07 04:20 BP 144 / 86; Pulse 96bpm; Resp 17bpm; Pulse Ox 96% RA; lp1 lp1
--- NOTE | 2018-07-29 07:36 | EDPHYS ---
Physician Documentation [facility] Name: Wero Kwong Sr Age: 52 yrs Sex: Male : 1965 Arrival Date: 07/29/2018 Time: 02:16 Bed 2 Private MD: ED Physician Milton Mims HPI: 07/29 02:37 This 52 yrs old Male presents to ER via Unassigned with complaints of Altered tw4 Mental Status. 02:37 The patient presents with decreased responsiveness, disorientation. Onset: The tw4 symptoms/episode began/occurred this morning. Possible causes: CVA or TIA, drug use, alcohol. Associated signs and symptoms: The patient has no apparent associated signs or symptoms. Current symptoms: In the emergency department the patient's symptoms are unchanged from the initial presentation. The patient has not experienced similar symptoms in the past. Historical: - Allergies: 02:55 Codeine; lp1 02:55 Morphine; lp1 - Home Meds: 02:55 gabapentin 300 mg oral cap [Active]; furosemide 40 mg Oral tab 1 tab 2 times per day lp1 [Active]; citalopram 20 mg tab 1 tab once daily [Active]; Plavix 75 mg Oral tab 1 tab once daily [Active]; aspirin 81 mg Oral TbEC 1 tab once daily [Active]; - PMHx: 02:55 CAD; CVA; Diabetes - NIDDM; High Cholesterol; Hypertension; Myocardial infarction; lp1 neuropathy; - Immunization history:: Adult Immunizations unknown. - Ebola Screening: : No symptoms or risks identified at this time. - Social history:: Smoking status: Patient uses tobacco products, smokes one pack cigarettes per day. ROS: 02:37 Constitutional: Negative for fever, chills, and weight loss, Eyes: Negative for injury, tw4 pain, redness, and discharge, Cardiovascular: Negative for chest pain, palpitations, and edema, Respiratory: Negative for shortness of breath, cough, wheezing, and pleuritic chest pain, Abdomen/GI: Negative for abdominal pain, nausea, vomiting, diarrhea, and constipation, Back: Negative for injury and pain, MS/Extremity: Negative for injury and deformity. 02:37 Neuro: Positive for altered mental status, Negative for dizziness, gait disturbance, headache, hearing loss, seizure activity, speech changes, syncope, near syncope, tinnitus, tremor, visual changes. Exam: 02:37 Constitutional: This is a well developed, well nourished patient who is awake, alert, tw4 and in no acute distress. Head/Face: Normocephalic, atraumatic. Chest/axilla: Normal chest wall appearance and motion. Nontender with no deformity. No lesions are appreciated. Cardiovascular: Regular rate and rhythm with a normal S1 and S2. No gallops, murmurs, or rubs. Normal PMI, no JVD. No pulse deficits. Respiratory: Lungs have equal breath sounds bilaterally, clear to auscultation and percussion. No rales, rhonchi or wheezes noted. No increased work of breathing, no retractions or nasal flaring. Abdomen/GI: Soft, non-tender, with normal bowel sounds. No distension or tympany. No guarding or rebound. No evidence of tenderness throughout. MS/ Extremity: Pulses equal, no cyanosis. Neurovascular intact. Full, normal range of motion. Neuro: Awake and alert, GCS 15, oriented to person, place, time, and situation. Cranial nerves II-XII grossly intact. Motor strength 5/5 in all extremities. Sensory grossly intact. Cerebellar exam normal. Normal gait. 02:37 Psych: exam not indicated. Vital Signs: 02:30 BP 163 / 90; Pulse 97; Resp 18; Temp 97.9(O); Pulse Ox 97% on R/A; Weight 111.13 kg; lp1 Height 5 ft. 7 in. (170.18 cm); 03:59 BP 141 / 85; Pulse 96; Resp 16; Pulse Ox 97% on 2 lpm NC; aa1 04:20 BP 152 / 84; Pulse 95; Resp 20; Pulse Ox 97% on R/A; lp1 04:40 BP 132 / 79; Pulse 101; Resp 19; Pulse Ox 93% on R/A; lp1 05:00 BP 144 / 86; Pulse 96; Resp 17; Pulse Ox 96% on R/A; lp1 05:20 BP 136 / 86; Pulse 96; Resp 18; Pulse Ox 96% on R/A; lp1 06:00 BP 165 / 96; Pulse 98; Resp 19; Pulse Ox 96% on R/A; lp1 07:50 BP 142 / 77; Pulse 98; Resp 17; Pulse Ox 99% on R/A; tw2 10:00 BP 151 / 73; Pulse 82; Resp 16; Pulse Ox 100% on R/A; sg 11:00 BP 142 / 70; Pulse 81; Resp 16; Temp 98.1; Pulse Ox 99% on R/A; sg 11:50 BP 155 / 72; Pulse 87; Resp 17; Pulse Ox 100% on R/A; sg 02:30 Body Mass Index 38.37 (111.13 kg, 170.18 cm) lp1 MDM: 02:18 Patient medically screened. tw4 02:37 Data reviewed: vital signs, nurses notes. Counseling: I had a detailed discussion with tw4 the patient and/or guardian regarding: the historical points, exam findings, and any diagnostic results supporting the discharge/admit diagnosis. 07:12 Differential Diagnosis: CVA, electrolyte abnormality. Data interpreted: Cardiac tw4 monitor: rhythm is normal sinus rhythm. Test interpretation: by ED physician or midlevel provider: ECG. ED course: Pt has multiple seizures in the ED was given 1000mg of Keppra. Pt CT head was negative for any acute changes. 07:36 Physician consultation: Juancarlos Prince DO was contacted at 07:20, regarding admission, tw4 and will see patient in inpatient room, would like consultation with D/W Dr Chahal at 0730 will see in consultation . 07/29 02:29 Order name: Amylase, Serum tw4 07/29 02:29 Order name: Ckmb tw4 07/29 02:29 Order name: CPK; Complete Time: 08:20 tw4 07/29 02:29 Order name: Hepatic Function; Complete Time: 08:20 tw4 07/29 02:29 Order name: Lipase; Complete Time: 08:20 tw4 07/29 02:29 Order name: Magnesium; Complete Time: 08:20 tw4 07/29 02:29 Order name: Troponin (emerg Dept Use Only); Complete Time: 08:20 tw4 07/29 02:29 Order name: Basic Metabolic Panel; Complete Time: 05:06 tw4 07/29 02:29 Order name: CBC with Diff; Complete Time: 08:20 tw4 07/29 02:29 Order name: Protime (+inr); Complete Time: 08:20 4 07/29 02:29 Order name: Ptt, Activated; Complete Time: 08:20 tw4 07/29 02:29 Order name: Amylase Level; Complete Time: 08:20 EDMS 07/29 02:29 Order name: CKMB Creatine Kinase MB; Complete Time: 05:39 EDMS 07/29 03:40 Order name: Ketone, Serum; Complete Time: 05:06 tw4 07/29 02:29 Order name: CT Stroke Brain w/o Contrast tw4 07/29 02:29 Order name: Stroke CXR 1 View; Complete Time: 10:55 tw4 07/29 04:46 Order name: Glucose; Complete Time: 05:37 lp1 07/29 07:11 Order name: Glucose; Complete Time: 08:20 lp1 07/29 08:23 Order name: Glucose iw 07/29 08:23 Order name: BMP; Complete Time: 10:55 iw 07/29 08:44 Order name: Brain Wo Cont; Complete Time: 10:55 EDMS 07/29 10:13 Order name: Glucose, Ancillary Testing; Complete Time: 10:55 EDMS 07/29 10:13 Order name: Glucose, Ancillary Testing; Complete Time: 10:55 EDMS 07/29 10:13 Order name: Glucose, Ancillary Testing; Complete Time: 10:55 EDMS 07/29 10:54 Order name: Glucose iw 07/29 11:44 Order name: Glucose Level EDMS 07/29 02:29 Order name: Accucheck; Complete Time: 03:48 tw4 07/29 02:29 Order name: Cardiac monitoring; Complete Time: 03:48 tw4 07/29 02:29 Order name: EKG - Nurse/Tech; Complete Time: 03:48 tw4 07/29 02:29 Order name: IV Saline Lock; Complete Time: 03:48 tw4 07/29 02:29 Order name: Labs collected and sent; Complete Time: 03:48 tw4 07/29 02:29 Order name: NPO; Complete Time: 03:48 tw4 07/29 02:29 Order name: O2 Per Protocol; Complete Time: 03:48 tw4 07/29 02:29 Order name: O2 Sat Monitoring; Complete Time: 03:49 tw4 Administered Medications: 02:51 CANCELLED (Inappropriate at this time): Xopenex 0.63 mg Inhalation once tw4 02:57 Drug: Zofran 4 mg Route: IVP; Site: right antecubital; lp1 03:15 Follow up: Response: No adverse reaction lp1 03:25 Drug: Keppra 500 mg Route: IV; Rate: calculated rate; Site: right antecubital; aa1 03:40 Follow up: IV Status: Completed infusion aa1 03:40 Drug: Keppra 500 mg Route: IV; Rate: calculated rate; Site: right antecubital; aa1 04:09 Drug: Insulin Regular Human 10 units {Co-Signature: lp1 (Shellie Escobedo RN).} Route: IVP; aa1 Site: right antecubital; 06:09 Follow up: Response: No change in condition lp1 04:32 CANCELLED (Duplicate Order): Keppra 500 mg IV at calculated rate once lp1 05:40 Drug: Zofran 4 mg Route: IVP; Site: right antecubital; lp1 06:16 Follow up: Response: Nausea is decreased lp1 06:07 CANCELLED (Physician Discretion): Insulin Drip 6 units/hr - (Insulin Regular Human 100 lp1 units, NS 0.9% 100 ml) IV at calculated rate continuous; Standard concentration 1unit/ml; Dose for DKA is 0.1 units/kg/hr 06:07 Drug: NS 0.9% 1000 ml Route: IV; Rate: 1 bolus; Site: right antecubital; lp1 07:35 Follow up: Response: No adverse reaction; IV Status: Completed infusion; IV Intake: sg 990ml 06:08 Drug: Insulin Drip - (Insulin Regular Human 100 units, NS 0.9% 100 ml) {Co-Signature: lp1 aa1 (Anastasia Rutherford RN).} {Note: Verbal order to begin at 10 units/hr.} Route: IV; Rate: calculated rate; Site: right antecubital; 07:47 Drug: Zofran 4 mg Route: IVP; Site: left forearm; tw2 08:25 Follow up: Response: No adverse reaction; Nausea is decreased sg 07:48 Drug: TORadol 30 mg Route: IVP; Site: left forearm; tw2 08:35 Follow up: Response: No adverse reaction; Pain is unchanged, physician notified sg 08:36 Drug: Ativan 0.5 mg Route: IVP; Site: left forearm; sg 09:00 Follow up: Response: No adverse reaction; Anxiety decreased sg Point of Care Testing: Blood Glucose: 02:33 Blood Glucose: High (>450 mg/dL); lp1 04:45 Blood Glucose: High (>450 mg/dL); lp1 07:09 Blood Glucose: High (>450 mg/dL); lp1 Ranges: Critical Glucose Levels:Adult <50 mg/dl or >400 mg/dl <40 mg/dl or >180 mg/dl Disposition: 07/29/18 07:36 Hospitalization ordered by Juancarlos Prince for Inpatient Admission. Preliminary diagnosis are Diabetes mellitus due to underlying condition with hyperosmolarity, Epileptic seizures related to external causes, not intractable. - Bed requested for Intensive Care Unit. - Status is Inpatient Admission. sg - Condition is Stable. - Problem is new. - Symptoms have improved. UTI on Admission? No Signatures: Dispatcher [employer] EDND Yvette Adame Steven, RN RN Anastasia Rutherford RN RN aa1 Nara Jefferson, BOARD LINER OPERATOR-C BOARD LINER OPERATOR-Csnw Shellie Escobedo RN RN lp1 Allen Shirley PA PA jr8 Leslye Calderon RN RN tw2 Milton Mims MD MD tw4 Shellie Escobedo RN lp1 Anastasia Rutherford RN aa1 Corrections: (The following items were deleted from the chart) 02:51 02:36 Xopenex 0.63 mg Inhalation once ordered. tw4 tw4 04:32 04:23 Keppra 500 mg IV at calculated rate once ordered. tw4 lp1 06:07 05:37 Insulin Drip 6 units/hr - (Insulin Regular Human 100 units, NS 0.9% 100 ml) IV at lp1 calculated rate continuous; Standard concentration 1unit/ml; Dose for DKA is 0.1 units/kg/hr ordered. tw4 08:45 07:37 Brain W/Wo Cont+MRI.RAD.BRZ ordered. EDND EDMS 11:17 07:36 Hospitalization Ordered by Juancarlos Prince DO for Inpatient Admission. Preliminary bd diagnosis is Diabetes mellitus due to underlying condition with hyperosmolarity; Epileptic seizures related to external causes, not intractable. Bed requested for Intensive Care Unit. Status is Inpatient Admission. Condition is Stable. Problem is new. Symptoms have improved. UTI on Admission? No. tw4 12:41 11:17 07/29/2018 07:36 Hospitalization Ordered by Juancarlos Prince DO for Inpatient sg Admission. Preliminary diagnosis is Diabetes mellitus due to underlying condition with hyperosmolarity; Epileptic seizures related to external causes, not intractable. Bed requested for Intensive Care Unit. Status is Inpatient Admission. Condition is Stable. Problem is new. Symptoms have improved. UTI on Admission? No. bd
[2018-07-29] MEDS ORDERED: KETOROLAC 30 MG/ML INJ ONE (07:57)
--- NOTE | 2018-07-29 08:21 | RAD REPORT ---
EXAM DESCRIPTION: RAD - Chest Single View - 07/29/2018 3:09 am CLINICAL HISTORY: .. Chest pain. COMPARISON: Chest Single View dated 04/22/2018; Chest Single View dated 04/21/2018; Chest Single Vie w dated 03/12/2018; Chest Single View dated 01/25/2018 FINDINGS: Portable technique limits examination quality. The lungs are grossly clear. The heart is normal in size. No displaced fractures. IMPRESSION: No acute intrathoracic process suspected.
--- NOTE | 2018-07-29 09:03 | RAD REPORT ---
EXAM DESCRIPTION: MRI - Brain Wo Cont - 07/29/2018 8:53 am CLINICAL HISTORY: SEIZURE Headache, drowsiness, CVA COMPARISON: Ct Stroke Brain Wo Cont dated 07/29/2018 TECHNIQUE: Multi-sequence, multiplanar MR imaging of the brain was performed without contrast. FINDINGS: No intracranial hemorrhage, hydrocephalus or extra-axial fluid collections. No edema or sh ift of midline structures. No findings to suspect brain mass. DWI is negative for acute CVA. Midline structures are normally formed. Mastoid air cells and paranasal sinuses are clear. IMPRESSION: No acute or pathologic intracranial abnormalities.
[2018-07-29 09:12] LABS: Potassium 4.4 mmol/L (3.5-5.1)
[2018-07-29] MEDS ORDERED: INSULIN -REGULAR HUMAN 100 UNIT in NA CHLORIDE 0.9% 100 ML IV SCH (11:57)
[2018-07-29] MEDS ORDERED: ONDANSETRON 4 MG/2 ML VIAL IV PRN ×2 (11:57)
[2018-07-29] MEDS ORDERED: HYDRALAZINE HCL 20 MG/ML VIAL IV PRN (11:57)
[2018-07-29] MEDS ORDERED: D5 0.45 NS 1,000 ML IV SCH (11:57)
[2018-07-29] MEDS: NA CHLORIDE 0.9% 1,000 ML IV SCH ×2 (11:57→16:46)
[2018-07-29] MEDS ORDERED: ACETAMINOPHEN 650MG/RECT SUPP PR PRN (11:57)
[2018-07-29] MEDS ORDERED: ACETAMINOPHEN 500 MG TAB PO PRN (11:57)
[2018-07-29] MEDS ORDERED: D5 0.45 NS 1,000 ML IV ONE (11:59)
--- NOTE | 2018-07-29 12:42 | P.HP ---
Certification for Inpatient Patient admitted to: Inpatient With expected LOS: >2 Midnights Patient will require the following post-hospital care: None Practitioner: I am a practitioner with admitting privileges, knowledge of patient current condition, hospital course, and medical plan of care. Services: Services provided to patient in accordance with Admission requirements found in Title 42 Section 412.3 of the Code of Federal Regulations Patient History Date of Service: 07/29/18 Primary Care Provider: none; Cardiology-Dr. Oquendo Reason for admission: Seizure-like activity History of Present Illness: 52-year-old male presented to emergency room with seizure-like activity. Patient had decrease response and poor orientation at home. There was also some question of seizure-like activity. Patient was brought in for further evaluation. In emergency room patient had an episode of seizures with partial complex features. Patient was started on Keppra. Upon further evaluation white count 4.0. Hemoglobin 13. Sodium 130, potassium 4.4. BUN of 11. Blood sugar was elevated above 1000. Patient found to have hyperosmolar nonketotic hyperglycemia. Patient with underlying diabetes, insulin-dependent, hypertension, liver cirrhosis, hyperlipidemia, CAD, diabetic retinopathy/neuropathy and history of CVA. Patient is poorly controlled at home. Patient was started on IV insulin. Patient currently stable this time. Patient admitted for further evaluation. CT head shows no acute changes. MRI also unremarkable. I saw the patient ER, he appeared stable. No seizure-like activity identified. Patient to be transferred to ICU. Allergies acetaminophen [From [facility]] Allergy (Verified 03/13/18 00:11) Hives/Rash codeine Allergy (Verified 03/12/18 23:24) Hives/Rash hydrocodone [From [place]] Allergy (Verified 03/13/18 00:11) Hives/Rash morphine Allergy (Verified 03/13/18 00:11) Hives/Rash tramadol [From Ultram] Adverse Reaction (Verified 03/12/18 23:33) Itching Home medications list reviewed: Yes Home Medications: Aspirin Chewable [Aspirin Chewable*] 81 mg PO DAILY 03/12/18 Atenolol 50 mg PO DAILY 03/12/18 Citalopram [Celexa*] 20 mg PO DAILY 03/12/18 Clopidogrel Bisulfate [Plavix*] 75 mg PO DAILY 03/12/18 Simvastatin [Zocor] 80 mg PO BEDTIME 03/12/18 traMADol HCL [Ultram*] 50 mg PO Q6HP PRN 03/12/18 Cholecalciferol (Vitamin D3) [Vitamin D 5,000 IU Cap*] 5,000 unit PO DAILY #30 cap 03/15/18 Doxazosin [Cardura*] 2 mg PO BEDTIME #30 tab 03/15/18 Pantoprazole [Protonix Tab*] 40 mg PO DAILYAC #30 tab 03/15/18 Furosemide [Lasix*] 40 mg PO DAILY #30 tab 04/25/18 Gabapentin [Neurontin] 600 mg PO BID #60 tablet 04/25/18 Insulin 70/30 NPH/Reg Human [Novolin 70/30*] 40 unit SQ BIDAC #1 vial 04/25/18 - Past Medical/Surgical History Diabetic: Yes -: History CVA -: Liver cirrhosis with history hepatitis A -: CAD -: Diabetes mellitus type 2, insulin dependent -: CAD with prior OR -: Diabetic neuropathy, retinopathy -: CHF -: Hyperlipidemia -: Cardiac stents -: left acl repair -: Cholecystectomy Psychosocial/ Personal History: Patient lives at home and is . He has no children. - Family History Mother -: Heart disease, Hypertension - Social History Smoking Status: Current every day smoker Counseled patient to stop smoking for: less than 10 minutes Smoking therapy provided: Yes Patient receptive to therapy: Yes Alcohol use: No CD- Drugs: No Caffeine use: Yes Place of Residence: Home Review of Systems General: As per HPI Eyes: Unremarkable ENT: Unremarkable Respiratory: Unremarkable Cardiovascular: Unremarkable Gastrointestinal: Unremarkable Genitourinary: Unremarkable Integumentary: Unremarkable Neurological: Seizures, As per HPI Lymphatics: Unremarkable Physical Examination - Physical Exam General: Alert, In no apparent distress, Oriented x3, Cooperative HEENT: Atraumatic, Normocephalic, PERRLA, Mucous membr. moist/pink Neck: Supple, No Thyromegaly Respiratory: Clear to auscultation bilaterally, Normal air movement Cardiovascular: Normal pulses, Regular rate/rhythm Gastrointestinal: Normal bowel sounds, Soft and benign, Non-distended, No tenderness, No masses, No rebound, No guarding Musculoskeletal: No erythema, No tenderness, No warmth Integumentary: No tenderness/swelling, No erythema, No warmth, No cyanosis Neurological: Normal speech, Normal strength at 5/5 x4 extr, Normal tone, Normal affect - Studies Laboratory Data (last 24 hrs) 07/29/18 08:20: Sodium 130 L, Potassium 4.4, BUN 31 H, Creatinine 1.89 H, Glucose 897 H* 07/29/18 07:10: Glucose 931 H* 07/29/18 04:48: Glucose 1086 H* 07/29/18 02:35: PT 10.1, INR 0.85, APTT 29.8 07/29/18 02:35: WBC 4.0 L, Hgb 13.3 L, Hct 39.4 L, Plt Count 161 07/29/18 02:35: Sodium 129 L, Potassium 4.2, BUN 32 H, Creatinine 1.98 H, Glucose 1040 H*, Magnesium 2.2, Total Bilirubin 0.4, AST 20, ALT 30, Alkaline Phosphatase 115, Amylase 64, Lipase 510 H Assessment and Plan - Plan Impression: New onset seizures likely partial complex Hyperosmolar nonketotic hyperglycemia with history of diabetes type 2 insulin dependent, uncontrolled Hypertension CAD Hyperlipidemia Diabetic retinopathy/neuropathy History CVA Tobacco abuse Plan: New onset seizures likely partial complex: Keppra has been initiated. Will continue with Keppra IV twice daily. Will monitor for seizure activity. Will obtain EEG. Neurology has been consulted. Patient will remain in ICU to closely monitor. Will obtain echocardiogram, carotid Doppler and review MRI/CT head. Await further conditions from neurology. Seizure precaution in place. Will start DVT prophylaxis-Lovenox. Hyperosmolar nonketotic hyperglycemia with history of diabetes type 2 insulin dependent, uncontrolled: Patient currently on IV insulin drip. Will continue. Will transition from IV insulin drip to subcu medication once did blood sugars better controlled. Will check A1c. Will monitor and adjust closely. Hypertension: Will continue with medication. Will obtain home medication. CAD: Will continue with DVT prophylaxis. Will start aspirin. Will need to obtain home medication. Hyperlipidemia: Continue with statin medication. Diabetic retinopathy/neuropathy: Will need to obtain home medication. History CVA: CT MRI shows no acute stroke. Await further recommendations from neurology Tobacco abuse: Tobacco cessation addressed in detail. Time spent about 5 min. Discharge Plan: Home Plan to discharge in: Greater than 2 days - Advance Directives Does patient have a Living Will: No Does patient have a Durable POA for Healthcare: No - Code Status/Comfort Care Code Status Assessed: Yes (Patient is full code.) Time Spent Managing Pts Care (In Minutes): 55
[2018-07-29] MEDS ORDERED: LORazepam 2 MG/ML VIAL IV PRN (12:52)
[2018-07-29] MEDS: HYDROMORPHONE HCL 0.5 MG/0.5 ML INJ IV PRN ×3 (13:26→21:52)
[2018-07-29 14:20] LABS: Thyroid Stimulating Hormone 0.978 uIU/mL (0.360-3.740)
--- NOTE | 2018-07-29 14:38 | RAD REPORT ---
EXAM DESCRIPTION: US - Scrotum Testicles - 07/29/2018 2:18 pm CLINICAL HISTORY: Scrotal swelling COMPARISON: Scrotum Testicles dated 09/09/2016 FINDINGS: The right testicle 4.9 x 3.4 x 2.8 cm. No intratesticular masses or evidence of testicular torsion. The left testicle 4.7 x 3.3 x 2.5 cm. No intratesticular masses or evidence of testicular torsion. Both epididymides are normal in size and appearance. No pathologic fluid collections. IMPRESSION: Unremarkable study.
--- NOTE | 2018-07-29 14:39 | RAD REPORT ---
EXAM DESCRIPTION: US - Renal Ultrasound-Complete - 07/29/2018 2:18 pm CLINICAL HISTORY: Acute on chronic renal disease Flank pain COMPARISON: Renal Ultrasound-Complete dated 04/23/2018 FINDINGS: Both kidneys are normal in size, shape and echotexture. The right kidney measures 12.7 x 6.2 x 6.0 cm. No hydronephrosis, focal mass or perinephric fluid. 11 mm benign cortical renal cyst. The left kidney measures 12.5 x 7.2 x 6.3 cm. No hydronephrosis, focal mass or perinephric fluid. The urinary bladder is incompletely distended without gross abnormality seen. IMPRESSION: 11 mm benign cortical right renal cyst. Otherwise, unremarkable study.
--- NOTE | 2018-07-29 14:42 | RAD REPORT ---
EXAM DESCRIPTION: US - CP - 07/29/2018 2:18 pm CLINICAL HISTORY: new onset seizures Headache, seizures, drowsiness COMPARISON: NECK SOFT TISSUE dated 03/16/2010 TECHNIQUE: Real-time sonographic evaluation of both carotid systems was performed. Doppler interroga tion was performed with waveform tracing bilaterally. FINDINGS: Normal high resistance waveforms are noted in both external carotid arteries. The common c arotid arteries and internal carotid arteries show normal low resistance waveforms. Small amount of hard plaque is present in both proximal internal carotid artery bulbs. Peak systolic and end diastolic velocity values and the ICA/CCA ratios are in the non-hemodynamically significant r juan david. Antegrade flow seen in both vertebral arteries. IMPRESSION: Mild hard plaquing in both carotid bulbs. No evidence of a hemodynamically significant stenosis.
[2018-07-29] MEDS: NITROGLYCERIN 0.4 MG/TAB SL PRN (15:39)
--- NOTE | 2018-07-29 17:00 | ECHO ---
HEIGHT: 5 ft 8 in WEIGHT: 198 lb 8 oz DATE OF STUDY: 07/29/[address]: Juancarlos Prince DO 2-DIMENSIONAL: YES M.MODE: YES DOPPLER: YES COLOR FLOW: YES TDS: PORTABLE: YES DEFINITY: BUBBLE STUDY: DIAGNOSIS: NEW ONSET SEIZURES CARDIAC HISTORY: CATHERIZATION: YES SURGERY: NO PROSTHETIC VALVE: NO PACEMAKER: NO MEASUREMENTS (cm) DIASTOLIC (NORMALS) SYSTOLIC (NORMALS) IVSd 1.2 (0.6-1.2) LA Diam 3.9 (1.9-4.0) LVEF 62% LVIDd 4.8 (3.5-5.7) LVIDs 4.1 (2.0-3.5) %FS 34% LVPWd 1.3 (0.6-1.2) Ao Diam 3.3 (2.0-3.7) 2 DIMENSIONAL ASSESSMENT: RIGHT ATRIUM: NORMAL LEFT ATRIUM: DILATED RIGHT VENTRICLE: NORMAL LEFT VENTRICLE: LEFT VENTRICULAR HYPERTROPHY TRICUSPID VALVE: NORMAL MITRAL VALVE: NORMAL PULMONIC VALVE: NORMAL AORTIC VALVE: NORMAL PERICARDIAL EFFUSION: NONE AORTIC ROOT: NORMAL LEFT VENTRICULAR WALL MOTION: NORMAL DOPPLER/COLOR FLOW: NORMAL COMMENTS: NORMAL LEFT VENTRICULAR EJECTION FRACTION. LEFT VENTRICULAR HYPERTROPHY. DILATED LEFT ATRIUM. TECHNOLOGIST: KENDELL PIMENTEL
[2018-07-29] MEDS ORDERED: D50W 25 GM/50 ML SYRINGE IV PRN (18:02)
[2018-07-29] MEDS ORDERED: GLUCAGON 1 MG/VIAL IM PRN (18:02)
[2018-07-29] MEDS: INSULIN GLARGINE 100 UNITS/ML SQ SCH (18:19)
[2018-07-29] MEDS: NACHLORIDE 0.45% 1,000 ML IV SCH (18:19)
[2018-07-29] MEDS ORDERED: ATORVASTATIN 80 MG TAB PO SCH (21:00)
[2018-07-29] MEDS ORDERED: FAMOTIDINE 20 MG/2 ML VIAL IV SCH (21:00)
[2018-07-29] MEDS ORDERED: levETIRAcetam 500 MG in NA CHLORIDE 0.9% 100 ML IV SCH (21:00)
[2018-07-29 21:09] LABS: CKMB Creatine Kinase MB 6.8 ng/mL (0.3-3.6); Troponin I 0.02 ng/mL (0.0-0.045)
[2018-07-29] MEDS: INSULIN -REGULAR HUMAN 50 UNIT/0.5 ML ML SQ SCH (21:19)
[2018-07-30] MEDS: NITROGLYCERIN 0.4 MG/TAB SL PRN (00:45)
[2018-07-30] MEDS: HYDROMORPHONE HCL 0.5 MG/0.5 ML INJ IV PRN ×2 (01:34→10:34)
[2018-07-30 05:24] VITALS: BMI 26.4
[2018-07-30 05:48] LABS: Absolute Lymphocytes (CBC) 1.7 K/uL (0.7-4.9); Absolute Monocytes 0.3 K/uL (0.1-1.3); Basophils % 1.2 % (0-1.3); Eosinophils % 4.6 % (0-4.4); Hematocrit 33.1 % (39.6-49.0); Lymphocytes % 31.8 % (15.3-44.8); RBC Red Blood Cell Count 3.88 M/uL (4.33-5.43)
[2018-07-30 05:57] LABS: BUN Blood Urea Nitrogen 23 mg/dL (7-18); Bicarbonate 24 mmol/L (21-32); Glucose Level 303 mg/dL (74-106); HDL Cholesterol 30 mg/dL (40-60); LDL Cholesterol, Calculated ND (<130); Potassium 3.9 mmol/L (3.5-5.1); Sodium Level 139 mmol/L (136-145)
[2018-07-30] MEDS: NACHLORIDE 0.45% 1,000 ML IV SCH (06:10)
[2018-07-30 06:11] LABS: LDL, Direct 121 mg/dL (100-129)
[2018-07-30 07:53] VITALS: O2SAT 96
[2018-07-30] MEDS ORDERED: GABAPENTIN 300 MG CAP PO SCH (08:00)
[2018-07-30] MEDS: INSULIN GLARGINE 100 UNITS/ML SQ SCH (08:27)
[2018-07-30] MEDS: INSULIN -REGULAR HUMAN 50 UNIT/0.5 ML ML SQ SCH ×3 (08:30→16:30)
[2018-07-30] MEDS ORDERED: ENOXAPARIN 40 MG/0.4 ML SQ SCH (09:00)
[2018-07-30] MEDS ORDERED: CITALOPRAM 10 MG TABLET PO SCH (09:00)
[2018-07-30] MEDS ORDERED: FAMOTIDINE 20 MG TAB PO SCH (09:00)
[2018-07-30] MEDS ORDERED: FOLIC ACID 1 MG TABLET PO SCH (09:00)
[2018-07-30] MEDS ORDERED: LISINOPRIL 10 MG TAB PO SCH (09:00)
[2018-07-30] MEDS ORDERED: POTASSIUM 25 MEQ EFFERV TAB PO ONE (09:00)
[2018-07-30] MEDS ORDERED: THIAMINE 200 MG/2 ML INJ IVP SCH (09:00)
[2018-07-30] MEDS ORDERED: FUROSEMIDE 40 MG TABLET PO SCH (09:00)
[2018-07-30] MEDS ORDERED: ASPIRIN EC 81 MG TAB PO SCH (09:00)
[2018-07-30] MEDS ORDERED: levETIRAcetam 500 MG TAB PO SCH (09:00)
[2018-07-30] MEDS ORDERED: FOLIC ACID 1 MG in NA CHLORIDE 0.9% 50 ML IV SCH (09:00)
[2018-07-30] MEDS ORDERED: CLOPIDOGREL 75 MG TABLET PO SCH (09:00)
[2018-07-30] MEDS ORDERED: VITAMIN D 5,000 UNIT CAP PO SCH (09:00)
--- NOTE | 2018-07-30 09:35 | RAD REPORT ---
EXAM DESCRIPTION: CT head without IV contrast CLINICAL HISTORY: 52-year-old male with confusion and shaking left arm, seizure for 1 to 2 minutes w ith confusion since episode TECHNIQUE: Multiple axial CT images of the brain were performed followed by sagittal and coronal rec onstructed images. The CT study is performed according to ALARA (as low as reasonably achievable) or ALARA/IMAGE GENTLY, with automatic adjustment of mA and/or kV according to patient size. Performed on: 07/29/2018 at 2:35 AM COMPARISON: 04/22/2018. FINDINGS: There is no evidence of mass, acute mass effect or midline shift. There are no acute extra -axial fluid collections. There is no evidence of acute intracranial hemorrhage. There is no eviden ce of a hyperdense MCA. There is very slight prominence of the cerebral sulci and ventricles. There are no focal abnormal areas of increased or decreased attenuation. There is no significant mucosal thickening of the paranasal sinuses. The mastoid air cells are clear. The orbital contents are grossly unremarkable. No acute osseous abnormalities are identified. No focal soft tissue abnormalities are identified. IMPRESSION: There is no evidence of acute intracranial pathology. No significant change since the pr ior study. These critical findings were discussed with Dr. Mims on 07/29/2018 at 3:10 AM central time Electronically signed by: Linda Fields DO 07/29/2018 3:11 AM CDT Due to temporary technical issues with the PACS/Fluency reporting system, reports are being signed by the in house radiologist as a courtesy to ensure prompt reporting. The interpreting radiologist is f ully responsible for the content of the report.
--- NOTE | 2018-07-30 10:24 | P.DS ---
Admission Date: 07/29/18 Discharge Date: 07/30/18 Primary Care Provider: none; Cardiology-Dr. Oquendo Disposition: ROUTINE DISCHARGE Discharge Condition: GOOD Reason for Admission: Seizure-like activity Consultations: Neurology-Dr. Chahal Nephrology-Dr. Herrmann Procedures: CT head: FINDINGS: There is no evidence of mass, acute mass effect or midline shift. There are no acute extra-axial fluid collections. There is no evidence of acute intracranial hemorrhage. There is no evidence of a hyperdense MCA. There is very slight prominence of the cerebral sulci and ventricles. There are no focal abnormal areas of increased or decreased attenuation. There is no significant mucosal thickening of the paranasal sinuses. The mastoid air cells are clear. The orbital contents are grossly unremarkable. No acute osseous abnormalities are identified. No focal soft tissue abnormalities are identified. IMPRESSION: There is no evidence of acute intracranial pathology. No significant change since the prior study. MRI Brain: FINDINGS: No intracranial hemorrhage, hydrocephalus or extra-axial fluid collections. No edema or shift of midline structures. No findings to suspect brain mass. DWI is negative for acute CVA. Midline structures are normally formed. Mastoid air cells and paranasal sinuses are clear. IMPRESSION: No acute or pathologic intracranial abnormalities Carotid doppler: FINDINGS: Normal high resistance waveforms are noted in both external carotid arteries. The common carotid arteries and internal carotid arteries show normal low resistance waveforms. Small amount of hard plaque is present in both proximal internal carotid artery bulbs. Peak systolic and end diastolic velocity values and the ICA/CCA ratios are in the non-hemodynamically significant range. Antegrade flow seen in both vertebral arteries. IMPRESSION: Mild hard plaquing in both carotid bulbs. No evidence of a hemodynamically significant stenosis. ECHO: EF 64% LEFT VENTRICULAR WALL MOTION: NORMAL DOPPLER/COLOR FLOW: NORMAL COMMENTS: NORMAL LEFT VENTRICULAR EJECTION FRACTION. LEFT VENTRICULAR HYPERTROPHY. DILATED LEFT ATRIUM. Renal US: FINDINGS: Both kidneys are normal in size, shape and echotexture. The right kidney measures 12.7 x 6.2 x 6.0 cm. No hydronephrosis, focal mass or perinephric fluid. 11 mm benign cortical renal cyst. The left kidney measures 12.5 x 7.2 x 6.3 cm. No hydronephrosis, focal mass or perinephric fluid. The urinary bladder is incompletely distended without gross abnormality seen. IMPRESSION: 11 mm benign cortical right renal cyst. Otherwise, unremarkable study. Medical Problem List: New onset seizures likely partial complex Hyperosmolar nonketotic hyperglycemia with history of diabetes type 2 insulin dependent, uncontrolled with poor compliance Acute renal injury likely dehydration Hypertension Scrotal dermatitis likely fungal CAD Hyperlipidemia Diabetic retinopathy/neuropathy History CVA Carotid arterial disease without significant stenosis Tobacco abuse Brief History of Present Illness: 52-year-old male presented to emergency room with seizure-like activity. Patient had decrease response and poor orientation at home. There was also some question of seizure-like activity. Patient was brought in for further evaluation. In emergency room patient had an episode of seizures with partial complex features. Patient was started on Keppra. Upon further evaluation white count 4.0. Hemoglobin 13. Sodium 130, potassium 4.4. BUN of 11. Blood sugar was elevated above 1000. Patient found to have hyperosmolar nonketotic hyperglycemia. Patient with underlying diabetes, insulin-dependent, hypertension, liver cirrhosis, hyperlipidemia, CAD, diabetic retinopathy/neuropathy and history of CVA. Patient is poorly controlled at home. Patient was started on IV insulin. Patient currently stable this time. Patient admitted for further evaluation. CT head shows no acute changes. MRI also unremarkable. I saw the patient ER, he appeared stable. No seizure-like activity identified. Patient to be transferred to ICU. Hospital Course: Patient presented with new onset seizure. This appeared to be partial complex. Patient was started on IV Keppra and monitored closely. EEG obtained. CT head, MRI brain showed no acute stroke. Patient did well with medication. No further seizures identified. Carotid Doppler shows carotid arterial disease without significant stenosis. Echocardiogram unremarkable. Patient will be discharged on Keppra 500 mg 1 pill twice daily and folic acid 1 mg daily.. Recommend follow up with neurology in 1-2 weeks to follow up this hospitalization. Recommend to recheck Keppra level in 1 week. Seizure precautions will be provided. No driving, operating heavy equipment, swimming, or using a ladder for high places. Education on seizures will be provided. Patient also had hyperosmolar nonketotic hyperglycemia. Patient with history of diabetes mellitus type 2, insulin-dependent. Patient admits his diabetes is not well controlled and at times does not take his medication-Insulin 70/30. A1c elevated above 13. Patient required IV insulin therapy. Patient was transitioned to basal insulin. Blood sugars remained stable. At discharge patient will continue with insulin 70/30 at 80 units subcu twice daily. Recommend to monitor blood sugars at least twice daily. Further adjustment in insulin may be required for better control. Compliance with medication addressed in detail. Recommend blood sugars to remain less than 140 fasting and less than 200 after meals. Recommend for patient to see Endocrinology as an outpatient to further monitor and address. Patient with acute renal injury likely from dehydration. Patient receive IV fluids with improvement. Recommend no further use of nonsteroidal anti- inflammatories. Future medications may need to be renally dosed. Recommend to recheck lab-BMP in 1-2 weeks to monitor his progress. Patient with hypertension. Patient reports noncompliance with medication. Recommend to continue with lisinopril 10 mg daily. Compliance education will be provided. Recommend blood pressures to remain less than 150/80. Further adjustment can be done by his PCP. Patient with hyperlipidemia. Patient will continue with Zocor 80 mg daily. Patient with history of CAD and carotid arterial disease without significant stenosis. At discharge patient will continue with aspirin 81 mg daily and Plavix 75 mg daily. Patient also takes Lasix 40 mg daily. He is to continue with a 1500 cc per day fluid restriction. Patient may hold Lasix if edema to the lower extremities stable. Further adjustment may be required. Patient with diabetic retinopathy and neuropathy. Patient will follow up with ophthalmology. Patient will continue with his pain control medication including gabapentin 900 mg every a.m. and 1200 mg at bedtime. Patient may require pain management referral to further address his neuropathy. Patient has significant tobacco abuse. Tobacco cessation addressed in detail. This will need to be further monitored and addressed by his PCP. Patient with depression. At discharge patient will continue with Celexa 20 mg daily. Patient had scrotal dermatitis. This is likely fungal and related to his uncontrolled diabetes. At discharge he will continue with nystatin cream daily. Better control of his diabetes will be required. Vital Signs/Physical Exam: Temp Pulse Resp BP Pulse Ox 97.9 F 83 11 L 154/94 H 97 07/30/18 04:00 07/30/18 09:16 07/30/18 06:00 07/30/18 09:16 07/30/18 06:00 General: Alert, In no apparent distress, Oriented x3, Cooperative HEENT: Atraumatic Neck: Supple Respiratory: Clear to auscultation bilaterally, Normal air movement Cardiovascular: Normal pulses, Regular rate/rhythm Gastrointestinal: Normal bowel sounds, Soft and benign, Non-distended, No tenderness, No masses, No rebound, No guarding Musculoskeletal: No erythema, No tenderness, No warmth Integumentary: No tenderness/swelling, No erythema, No warmth, No cyanosis Neurological: Normal speech, Normal strength at 5/5 x4 extr, Normal tone, Normal affect Laboratory Data at Discharge: WBC 5.3 K/uL (4.3-10.9) D 07/30/18 04:59 Hgb 11.8 g/dL (13.6-17.9) L 07/30/18 04:59 Hct 33.1 % (39.6-49.0) L D 07/30/18 04:59 Plt Count 131 K/uL (152-406) L 07/30/18 04:59 PT 10.1 SECONDS (9.5-12.5) 07/29/18 02:35 INR 0.85 07/29/18 02:35 APTT 29.8 SECONDS (24.3-36.9) 07/29/18 02:35 Sodium 139 mmol/L (136-145) 07/30/18 04:59 Potassium 3.9 mmol/L (3.5-5.1) 07/30/18 04:59 BUN 23 mg/dL (7-18) H 07/30/18 04:59 Creatinine 1.30 mg/dL (0.55-1.3) 07/30/18 04:59 Glucose 303 mg/dL (74-106) H 07/30/18 04:59 Magnesium 2.0 mg/dL (1.8-2.4) 07/30/18 04:59 Total Bilirubin 0.4 mg/dL (0.2-1.0) 07/29/18 02:35 AST 20 U/L (15-37) 07/29/18 02:35 ALT 30 U/L (12-78) 07/29/18 02:35 Alkaline Phosphatase 115 U/L (45-117) 07/29/18 02:35 Troponin I 0.02 ng/mL (0.0-0.045) 07/29/18 20:40 Triglycerides 490 mg/dL (<150) H 07/30/18 04:59 Cholesterol 229 mg/dL (<200) H 07/30/18 04:59 LDL Cholesterol Direct 121 mg/dL (100-129) 07/30/18 04:59 HDL Cholesterol 30 mg/dL (40-60) L 07/30/18 04:59 Cholesterol/HDL Ratio 7.63 07/30/18 04:59 Amylase 64 U/L (25-115) 07/29/18 02:35 Lipase 510 U/L (73-393) H 07/29/18 02:35 Home Medications: Aspirin Chewable [Aspirin Chewable*] 81 mg PO DAILY 03/12/18 Citalopram [Celexa*] 20 mg PO DAILY 03/12/18 Clopidogrel Bisulfate [Plavix*] 75 mg PO DAILY 03/12/18 Simvastatin [Zocor] 80 mg PO BEDTIME 03/12/18 Cholecalciferol (Vitamin D3) [Vitamin D 5,000 IU Cap*] 5,000 unit PO DAILY #30 cap 03/15/18 Gabapentin 1,200 mg PO BEDTIME 07/29/18 Gabapentin [Neurontin] 900 mg PO BREAKFAST 07/29/18 Famotidine [Pepcid] 20 mg PO BID #60 tab 07/30/18 Folic Acid 1 mg PO DAILY #30 tablet 07/30/18 Furosemide [Lasix*] 40 mg PO DAILY #30 tab 07/30/18 Insulin 70/30 NPH/Reg Human [Novolin 70/30*] 80 unit SQ BIDAC #1 bottle Lisinopril [Prinivil*] 10 mg PO DAILY #30 tab 07/30/18 Nystatin Cream [Mycostatin 100MU/Gm Cream*] 15 appl TOP DAILY #1 tube 07/30/18 levETIRAcetam [Keppra*] 500 mg PO BID #60 tab 07/30/18 New Medications: Famotidine [Pepcid] 20 mg PO BID #60 tab Folic Acid 1 mg PO DAILY #30 tablet Furosemide [Lasix*] 40 mg PO DAILY #30 tab Insulin 70/30 NPH/Reg Human [Novolin 70/30*] 80 unit SQ BIDAC #1 bottle levETIRAcetam [Keppra*] 500 mg PO BID #60 tab Lisinopril [Prinivil*] 10 mg PO DAILY #30 tab Nystatin Cream [Mycostatin 100MU/Gm Cream*] 15 appl TOP DAILY #1 tube Patient Discharge Instructions: 1. Patient will follow up his PCP in 1 week to follow up this hospitalization. 2. Patient presented with new onset seizure. This appeared to be partial complex. Patient was started on IV Keppra and monitored closely. EEG obtained. CT head, MRI brain showed no acute stroke. Patient did well with medication. No further seizures identified. Carotid Doppler shows carotid arterial disease without significant stenosis. Echocardiogram unremarkable. Patient will be discharged on Keppra 500 mg 1 pill twice daily and folic acid 1 mg daily.. Recommend follow up with neurology in 1-2 weeks to follow up this hospitalization. Recommend to recheck Keppra level in 1 week. Seizure precautions will be provided. No driving, operating heavy equipment, swimming, or using a ladder for high places. Education on seizures will be provided. 3. Patient also had hyperosmolar nonketotic hyperglycemia. Patient with history of diabetes mellitus type 2, insulin-dependent. Patient admits his diabetes is not well controlled and at times does not take his medication-Insulin 70/30. A1c elevated above 13. Patient required IV insulin therapy. Patient was transitioned to basal insulin. Blood sugars remained stable. At discharge patient will continue with insulin 70/30 at 80 units subcu twice daily. Recommend to monitor blood sugars at least twice daily. Further adjustment in insulin may be required for better control. Compliance with medication addressed in detail. Recommend blood sugars to remain less than 140 fasting and less than 200 after meals. Recommend for patient to see Endocrinology as an outpatient to further monitor and address. 4. Patient with acute renal injury likely from dehydration. Patient receive IV fluids with improvement. Recommend no further use of nonsteroidal anti-inflammatories. Future medications may need to be renally dosed. Recommend to recheck lab-BMP in 1-2 weeks to monitor his progress. 5. Patient with hypertension. Patient reports noncompliance with medication. Recommend to continue with lisinopril 10 mg daily. Compliance education will be provided. Recommend blood pressures to remain less than 150/80. Further adjustment can be done by his PCP. 6. Patient with hyperlipidemia. Patient will continue with Zocor 80 mg daily. 7. Patient with history of CAD and carotid arterial disease without significant stenosis. At discharge patient will continue with aspirin 81 mg daily and Plavix 75 mg daily. Patient also takes Lasix 40 mg daily. He is to continue with a 1500 cc per day fluid restriction. Patient may hold Lasix if edema to the lower extremities stable. Further adjustment may be required. 8. Patient with diabetic retinopathy and neuropathy. Patient will follow up with ophthalmology. Patient will continue with his pain control medication including gabapentin 900 mg every a.m. and 1200 mg at bedtime. Patient may require pain management referral to further address his neuropathy. 9. Patient has significant tobacco abuse. Tobacco cessation addressed in detail. This will need to be further monitored and addressed by his PCP. 10. Patient with depression. At discharge patient will continue with Celexa 20 mg daily. 11. Patient had scrotal dermatitis. This is likely fungal and related to his uncontrolled diabetes. At discharge he will continue with nystatin cream daily. Better control of his diabetes will be required. Diet: ADA Activity: Fall precautions Time spent managing pt's care (in minutes): 55
--- NOTE | 2018-07-30 13:20 | P.CNS ---
Date of Consult: 07/30/18 Reason for Consult: ASHLEY and hyponatremia Primary Care Provider: none; Cardiology-Dr. Oquendo Chief Complaint: Seizure-like activity History of Present Illness: a 53 Y/o man with PMhx of CAD, DM with neuropathy and retinopathy , and liver Cirrhosis pt was admitted was admitted for seizure likely activity head CT was -ve , cr up 1.9, NA 129 now AAOx3, no nausea, vomiting , diarrhea or constipation Allergies acetaminophen [From [place]] Allergy (Verified 03/13/18 00:11) Hives/Rash codeine Allergy (Verified 03/12/18 23:24) Hives/Rash hydrocodone [From [place]] Allergy (Verified 03/13/18 00:11) Hives/Rash morphine Allergy (Verified 03/13/18 00:11) Hives/Rash tramadol [From [place]] Adverse Reaction (Verified 03/12/18 23:33) Itching Home Medications: Aspirin Chewable [Aspirin Chewable*] 81 mg PO DAILY 03/12/18 Citalopram [Celexa*] 20 mg PO DAILY 03/12/18 Clopidogrel Bisulfate [Plavix*] 75 mg PO DAILY 03/12/18 Simvastatin [Zocor] 80 mg PO BEDTIME 03/12/18 Cholecalciferol (Vitamin D3) [Vitamin D 5,000 IU Cap*] 5,000 unit PO DAILY #30 cap 03/15/18 Gabapentin 1,200 mg PO BEDTIME 07/29/18 Gabapentin [Neurontin] 900 mg PO BREAKFAST 07/29/18 Famotidine [Pepcid] 20 mg PO BID #60 tab 07/30/18 Folic Acid 1 mg PO DAILY #30 tablet 07/30/18 Furosemide [Lasix*] 40 mg PO DAILY #30 tab 07/30/18 Insulin 70/30 NPH/Reg Human [Novolin 70/30*] 80 unit SQ BIDAC #1 bottle Lisinopril [Prinivil*] 10 mg PO DAILY #30 tab 07/30/18 Nystatin Cream [Mycostatin 100MU/Gm Cream*] 15 appl TOP DAILY #1 tube 07/30/18 levETIRAcetam [Keppra*] 500 mg PO BID #60 tab 07/30/18 - Past Medical/Surgical History Diabetic: Yes -: History CVA -: Liver cirrhosis with history hepatitis A -: CAD -: Diabetes mellitus type 2, insulin dependent -: CAD with prior [place] -: Diabetic neuropathy, retinopathy -: CHF -: Hyperlipidemia -: Cardiac stents -: left acl repair -: Cholecystectomy Psychosocial/ Personal History: Patient lives at home and is . He has no children. - Family History Mother Medical History: Heart disease, Hypertension - Social History Smoking Status: Current every day smoker Alcohol use: No CD- Drugs: No Caffeine use: No Place of Residence: Home Physical Examination Temp Pulse Resp BP Pulse Ox 97.9 F 83 11 L 154/94 H 97 07/30/18 04:00 07/30/18 09:16 07/30/18 06:00 07/30/18 09:16 07/30/18 06:00 General: In no apparent distress, Oriented x3 HEENT: Atraumatic Neck: Supple, JVD not distended, Without JVD or thyroid abnormality Respiratory: Clear to auscultation bilaterally, Normal air movement Cardiovascular: No edema, Regular rate/rhythm, Normal S1 S2, No rubs, No murmurs Gastrointestinal: Normal bowel sounds, Soft and benign - Problems (1) ASHLEY (acute kidney injury) Current Visit: No Status: Acute Conclusions/Impression: ASHLEY resolved due to dehydration US no hydro hyponatremia hyperosmolar hyponatremia normalized now DM better controlled as per primary seizure like disorder likely due to hyperglycemia head Ct -ve cleared for discharge from nephrology point of view
[2018-07-30 17:33] VITALS: TEMP 98.8
[2018-07-30 17:34] VITALS: BP 125/88
[2018-07-30] MEDS ORDERED: GABAPENTIN 400 MG CAP PO SCH (21:00)
[2018-07-30] MEDS ORDERED: ATORVASTATIN 40 MG TAB PO SCH (21:00)
--- NOTE | 2018-08-04 11:16 | EKG ---
Test Date: 2018-07-29 Test Time: 22:45:56 Unit Technician: NICOLE MEASUREMENT RESULTS: Intervals: Rate: 81 TX: 138 QRSD: 146 QT: 420 QTc: 487 [place]: P: 28 TX: 138 QRS: 72 T: 2 INTERPRETIVE STATEMENTS: Normal sinus rhythm Right bundle branch block Abnormal ECG Compared to ECG 07/29/2018 12:06:10 Left posterior fascicular block no longer present Bifascicular block no longer present Myocardial infarct finding no longer present Electronically Signed On 07-29-18 23:14:00 CDT by David Fabian
--- NOTE | 2018-08-04 11:18 | EKG ---
Test Date: 2018-07-29 Test Time: 12:06:10 Chemical Process Engineer: JESUS/S MEASUREMENT RESULTS: Intervals: Rate: 84 [place]: 140 QRSD: 148 QT: 420 QTc: 496 [place]: P: 32 [place]: 140 QRS: 120 T: 0 INTERPRETIVE STATEMENTS: Normal sinus rhythm Right bundle branch block Possible Inferior infarct, age undetermined Abnormal ECG Compared to ECG 07/29/2018 03:14:06 Myocardial infarct finding still present Electronically Signed On 07-29-18 23:19:44 CDT by David Fabian
--- NOTE | 2018-08-05 16:54 | EEG ---
CHART: [id number] TEST ID#: [id number] DATE OF STUDY: 07/29/18 THE EEG WAS RECORDED PORTABLE IN THE ICU ON A 17 CHANNEL MACHINE. ELECTRODES WERE APPLIED IN THE USUAL MANNER USING THE INTERNATIONAL 10-20 SYSTEM. THE WAKING BACKGROUND RHYTHM IN THIS RECORD CONSISTS OF WELL DEVELOPED AND WELL ORGANIZED WAVES OF 8.5 HZ., MAXIMAL IN THE POSTERIOR HEAD REGIONS WHICH ATTENUATE NORMALLY WITH EYE OPENING. LOW-VOLTAGE 18-22 HZ ACTIVITY IS EXPRESSED THE FRONTAL REGIONS. THERE ARE NO FOCAL OR LATERALIZING FEATURES. NO EPILEPTIFORM ACTIVITY APPEARS. SLEEP DID NOT OCCUR. HYPERVENTILATION WAS NOT PREFORMED. PHOTIC STIMULATION PRODUCED POOR DRIVING BILATERALLY. IMPRESSION: NORMAL EEG FOR THE AGE OF THE PATIENT IN [place].
== END 2018-07-30 18:25 | disposition home or self-care (01) | DRG 100 ==
LOC: ER 02:15 → ERHOLD 09:28 → 3RD-ICU 11:48
PROVIDERS: ADMIT Family Medicine; ATTEND Family Medicine
DX: G40.89 Other seizures (principal); E11.00 Type 2 diabetes mellitus with hyperosmolarity without nonketotic hyperglycemic-hyperosmolar coma (NKHHC); N17.9 Acute kidney failure, unspecified; I10 Essential (primary) hypertension; L30.9 Dermatitis, unspecified; I25.10 Atherosclerotic heart disease of native coronary artery without angina pectoris; E78.5 Hyperlipidemia, unspecified; E11.65 Type 2 diabetes mellitus with hyperglycemia; E11.319 Type 2 diabetes mellitus with unspecified diabetic retinopathy without macular edema; E11.40 Type 2 diabetes mellitus with diabetic neuropathy, unspecified; I77.89 Other specified disorders of arteries and arterioles; F32.9 Major depressive disorder, single episode, unspecified; F17.210 Nicotine dependence, cigarettes, uncomplicated; Z91.19 Patient's noncompliance with other medical treatment and regimen; Z86.73 Personal history of transient ischemic attack (TIA), and cerebral infarction without residual deficits; Z79.4 Long term (current) use of insulin
CPT/HCPCS: 36415; 70450; 70551; 71045; 76770; 76870; 80048; 80061; 80076; 82010; 82150; 82550; 82553; 82947; 82962; 83036; 83690; 83735; 84145; 84439; 84443; 84484; 85025; 85610; 85730; 93005; 93306; 93880; 95816; 96361; 96374; 96375; 99285; J0360; J1170; J1650; J1953; J2405; J3411; J7030

== ENCOUNTER 2018-10-04 12:52 | Emergency (ER) | payer SELFPAY ==
--- OUTSIDE RECORDS SUMMARY | 2018-10-04 12:57 | XMS REPORT | Clinical Summary ---
:1965 Author Organization [facility] Address [address] [place] [address] Care Team Providers Name Role Phone Asked, [...] Discontinued 40 MG tablet mouth nightly. 8 glyburide-metformin Take 1 tablet 0 Discontinued (GLUCOVANCE) [...] Essential hypertension 12/01/2016 Coronary artery disease involving [place] coronary artery 12/01/2016 Cirrhosis 12/01/2016 Hypertriglyceridemia 12/01/2016 Depression 12/01/2016 Encounters Date Type Specialty Care Team Description 03/20/2018 - Hospital Encounter General Internal Watson, Acute renal failure, unspecified acute renal failure type (HCC) (Primary Dx); 03/31/2018 Medicine [facility] Jeny, Cirrhosis of liver with ascites, unspecified hepatic cirrhosis type (HCC); Old cerebrovascular accident (CVA) without late effect; Tomi Essential hypertension; Milton O. 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) after 10/03/2017 Family History Medical History Relation Name Comments [...] Taken Blood Pressure 165/77 03/31/2018 8:31 AM ACCOUNT ADVISOR Pulse 66 03/31/2018 8:31 AM ACCOUNT ADVISOR Temperature 36.6 C (97.9 F) 03/31/2018 8:31 AM ACCOUNT ADVISOR Respiratory Rate 18 03/31/2018 8:31 AM ACCOUNT ADVISOR Oxygen Saturation 95% 03/31/2018 8:31 AM ACCOUNT ADVISOR Inhaled Oxygen Concentration - - Weight 96.6 kg (212 lb 14.4 oz) 03/31/2018 3:57 AM ACCOUNT ADVISOR Height 170.2 cm (5' 7") 03/20/2018 4:56 PM ACCOUNT ADVISOR Body Mass Index 33.34 03/20/2018 4:56 PM ACCOUNT ADVISOR Plan of Treatment Health Maintenance Due Date Last Done Comments DIABETIC RETINAL EYE EXAM 1965 DIABETIC FOOT EXAM 07/30/1977 URINE MICROALBUMIN 07/30/1977 COLON CANCER SCREENING 07/30/2017 SHINGLES VACCINES (#1) 07/30/2017 INFLUENZA VACCINE 11/26/2018 Implants Implanted Type Area Chair Caner Device Shelf Model / Identifier Expiration Serial / Date Lot Orthopedic Orthopedic Surgical Surgical Implants Implants Procedures Procedure Name Priority Date/Time Associated Comments Diagnosis POC GLUCOSE Routine 03/31/2018 8:28 Results for this AM ACCOUNT ADVISOR procedure are in the results section. ESTIMATED GFR Routine 03/31/2018 3:19 Results for this AM ACCOUNT ADVISOR procedure are in the results section. BASIC METABOLIC PANEL Routine 03/31/2018 3:19 Results for this AM ACCOUNT ADVISOR procedure are in the results section. POC GLUCOSE Routine 03/30/2018 11:23 Results for this PM ACCOUNT ADVISOR procedure are in the results section. POC GLUCOSE Routine 03/30/2018 8:25 Results for this PM ACCOUNT ADVISOR procedure are in the results section. POC GLUCOSE Routine 03/30/2018 5:09 Results for this PM ACCOUNT ADVISOR procedure are in the results section. POC GLUCOSE Routine 03/30/2018 12:17 Results for this PM ACCOUNT ADVISOR procedure are in the results section. POC GLUCOSE Routine 03/30/2018 8:07 Results for this AM ACCOUNT ADVISOR procedure are in the results section. ESTIMATED GFR Routine 03/30/2018 2:29 Results for this AM ACCOUNT ADVISOR procedure are in the results section. BASIC METABOLIC PANEL Routine 03/30/2018 2:29 Results for this AM ACCOUNT ADVISOR procedure are in the results section. POC GLUCOSE Routine 03/30/2018 1:44 Results for this AM ACCOUNT ADVISOR procedure are in the results section. POC GLUCOSE Routine 03/29/2018 9:13 Results for this PM ACCOUNT ADVISOR procedure are in the results section. POC GLUCOSE Routine 03/29/2018 7:27 Results for this PM ACCOUNT ADVISOR procedure are in the results section. POC GLUCOSE Routine 03/29/2018 5:21 Results for this PM ACCOUNT ADVISOR procedure are in the results section. POC GLUCOSE Routine 03/29/2018 12:17 Results for this PM ACCOUNT ADVISOR procedure are in the results section. POC GLUCOSE Routine 03/29/2018 7:41 Results for this AM ACCOUNT ADVISOR procedure are in the results section. POC GLUCOSE Routine 03/28/2018 9:14 Results for this PM ACCOUNT ADVISOR procedure are in the results section. POC GLUCOSE Routine 03/28/2018 5:18 Results for this PM ACCOUNT ADVISOR procedure are in the results section. POC GLUCOSE Routine 03/28/2018 11:32 Results for this AM ACCOUNT ADVISOR procedure are in the results section. POC GLUCOSE Routine 03/28/2018 8:19 Results for this AM ACCOUNT ADVISOR procedure are in the results section. POC GLUCOSE Routine 03/28/2018 7:17 Results for this AM ACCOUNT ADVISOR procedure are in the results section. ESTIMATED GFR Routine 03/28/2018 4:00 Results for this AM ACCOUNT ADVISOR procedure are in the results section. BASIC METABOLIC PANEL Routine 03/28/2018 4:00 Results for this AM ACCOUNT ADVISOR procedure are in the results section. POC GLUCOSE Routine 03/27/2018 8:58 Results for this PM ACCOUNT ADVISOR procedure are in the results section. POC GLUCOSE Routine 03/27/2018 4:55 Results for this PM ACCOUNT ADVISOR procedure are in the results section. POC GLUCOSE Routine 03/27/2018 11:54 Results for this AM ACCOUNT ADVISOR procedure are in the results section. POC GLUCOSE Routine 03/27/2018 7:48 Results for this AM ACCOUNT ADVISOR procedure are in the results section. ESTIMATED GFR Routine 03/27/2018 4:00 Results for this AM ACCOUNT ADVISOR procedure are in the results section. BASIC METABOLIC PANEL Routine 03/27/2018 4:00 Results for this AM ACCOUNT ADVISOR procedure are in the results section. POC GLUCOSE Routine 03/27/2018 12:19 Results for this AM ACCOUNT ADVISOR procedure are in the results section. POC GLUCOSE Routine 03/26/2018 8:44 Results for this PM ACCOUNT ADVISOR procedure are in the results section. POC GLUCOSE Routine 03/26/2018 5:04 Results for this PM ACCOUNT ADVISOR procedure are in the results section. ALBUMIN LEVEL Routine 03/26/2018 3:50 Results for this PM ACCOUNT ADVISOR procedure are in the results section. US DUPLEX VENOUS LOWER Routine 03/26/2018 2:24 Results for this EXTREMITY BILATERAL PM ACCOUNT ADVISOR procedure are in the results section. POC GLUCOSE Routine 03/26/2018 12:22 Results for this PM ACCOUNT ADVISOR procedure are in the results section. POC GLUCOSE Routine 03/26/2018 8:09 Results for this AM ACCOUNT ADVISOR procedure are in the results section. ESTIMATED GFR Routine 03/26/2018 4:00 Results for this AM ACCOUNT ADVISOR procedure are in the results section. BASIC METABOLIC PANEL Routine 03/26/2018 4:00 Results for this AM ACCOUNT ADVISOR procedure are in the results section. POC GLUCOSE Routine 03/25/2018 8:43 Results for this PM ACCOUNT ADVISOR procedure are in the results section. POC GLUCOSE Routine 03/25/2018 5:33 Results for this PM ACCOUNT ADVISOR procedure are in the results section. POC GLUCOSE Routine 03/25/2018 12:15 Results for this PM ACCOUNT ADVISOR procedure are in the results section. POC GLUCOSE Routine 03/25/2018 7:41 Results for this AM ACCOUNT ADVISOR procedure are in the results section. ESTIMATED GFR Routine 03/25/2018 4:00 Results for this AM ACCOUNT ADVISOR procedure are in the results section. BASIC METABOLIC PANEL Routine 03/25/2018 4:00 Results for this AM ACCOUNT ADVISOR procedure are in the results section. B NATRIURETIC PEPTIDE Routine 03/25/2018 3:30 Results for this AM ACCOUNT ADVISOR procedure are in the results section. POC GLUCOSE Routine 03/24/2018 8:51 Results for this PM ACCOUNT ADVISOR procedure are in the results section. POC GLUCOSE Routine 03/24/2018 5:43 Results for this PM ACCOUNT ADVISOR procedure are in the results section. POC GLUCOSE Routine 03/24/2018 12:01 Results for this PM ACCOUNT ADVISOR procedure are in the results section. POC GLUCOSE Routine 03/24/2018 7:32 Results for this AM ACCOUNT ADVISOR procedure are in the results section. ESTIMATED GFR Routine 03/24/2018 4:00 Results for this AM ACCOUNT ADVISOR procedure are in the results section. BASIC METABOLIC PANEL Routine 03/24/2018 4:00 Results for this AM ACCOUNT ADVISOR procedure are in the results section. HC COMPLETE BLD COUNT Routine 03/24/2018 3:30 Results for this W/AUTO DIFF AM ACCOUNT ADVISOR procedure are in the results section. POC GLUCOSE Routine 03/23/2018 8:25 Results for this PM ACCOUNT ADVISOR procedure are in the results section. POC GLUCOSE Routine 03/23/2018 5:27 Results for this PM ACCOUNT ADVISOR procedure are in the results section. POC GLUCOSE Routine 03/23/2018 12:29 Results for this PM ACCOUNT ADVISOR procedure are in the results section. POC GLUCOSE Routine 03/23/2018 8:17 Results for this AM ACCOUNT ADVISOR procedure are in the results section. HC COMPLETE BLD COUNT Routine 03/23/2018 4:30 Results for this W/AUTO DIFF AM ACCOUNT ADVISOR procedure are in the results section. ESTIMATED GFR Routine 03/23/2018 4:00 Results for this AM ACCOUNT ADVISOR procedure are in the results section. BASIC METABOLIC PANEL Routine 03/23/2018 4:00 Results for this AM ACCOUNT ADVISOR procedure are in the results section. POC GLUCOSE Routine 03/22/2018 5:24 Results for this PM ACCOUNT ADVISOR procedure are in the results section. POC GLUCOSE Routine 03/22/2018 12:23 Results for this PM ACCOUNT ADVISOR procedure are in the results section. POC GLUCOSE Routine 03/22/2018 8:15 Results for this AM ACCOUNT ADVISOR procedure are in the results section. ESTIMATED GFR Routine 03/22/2018 5:50 Results for this AM ACCOUNT ADVISOR procedure are in the results section. HC COMPLETE BLD COUNT Routine 03/22/2018 4:20 Results for this W/AUTO DIFF AM ACCOUNT ADVISOR procedure are in the results section. ESTIMATED GFR Routine 03/22/2018 4:00 Results for this AM ACCOUNT ADVISOR procedure are in the results section. SERUM ELECTROPHORESIS Routine 03/22/2018 4:00 Results for this AM ACCOUNT ADVISOR procedure are in the results section. HEPATITIS C ANTIBODY Routine 03/22/2018 4:00 Results for this AM ACCOUNT ADVISOR procedure are in the results section. HEPATITIS B SURFACE Routine 03/22/2018 4:00 Results for this ANTIGEN AM ACCOUNT ADVISOR procedure are in the results section. HEPATITIS B SURFACE Routine 03/22/2018 4:00 Results for this ANTIBODY AM ACCOUNT ADVISOR procedure are in the results section. HEPATITIS B CORE Routine 03/22/2018 4:00 Results for this ANTIBODY TOTAL AM ACCOUNT ADVISOR procedure are in the results section. C4 COMPLEMENT COMPONENT Routine 03/22/2018 4:00 Results for this AM ACCOUNT ADVISOR procedure are in the results section. C3 COMPLEMENT COMPONENT Routine 03/22/2018 4:00 Results for this AM ACCOUNT ADVISOR procedure are in the results section. RHEUMATOID FACTOR Routine 03/22/2018 4:00 Results for this AM ACCOUNT ADVISOR procedure are in the results section. ANNE Routine 03/22/2018 4:00 Results for this AM ACCOUNT ADVISOR procedure are in the results section. BASIC METABOLIC PANEL Routine 03/22/2018 4:00 Results for this AM ACCOUNT ADVISOR procedure are in the results section. POC GLUCOSE Routine 03/21/2018 9:39 Results for this PM ACCOUNT ADVISOR procedure are in the results section. CREATININE CLEARANCE, Routine 03/21/2018 5:30 Results for this URINE, 24 HOUR PM ACCOUNT ADVISOR procedure are in the results section. URINE PROTEIN Routine 03/21/2018 5:30 Results for this ELECTROPHORESIS, 24 HOUR PM ACCOUNT ADVISOR procedure are in the results section. POC GLUCOSE Routine 03/21/2018 5:21 Results for this PM ACCOUNT ADVISOR procedure are in the results section. ESTIMATED GFR Routine 03/21/2018 3:50 Results for this PM ACCOUNT ADVISOR procedure are in the results section. CREATININE CLEARANCE, Routine 03/21/2018 3:50 Results for this URINE, 24 HOUR PM ACCOUNT ADVISOR procedure are in the results section. POC GLUCOSE Routine 03/21/2018 12:08 Results for this PM ACCOUNT ADVISOR procedure are in the results section. US RENAL STAT 03/21/2018 11:18 Results for this AM ACCOUNT ADVISOR procedure are in the results section. POC GLUCOSE Routine 03/21/2018 8:20 Results for this AM ACCOUNT ADVISOR procedure are in the results section. URINALYSIS SCREEN AND Routine 03/21/2018 6:47 Results for this MICROSCOPY, WITH REFLEX AM ACCOUNT ADVISOR procedure are in TO CULTURE the results section. URINE CULTURE Routine 03/21/2018 6:47 Results for this AM ACCOUNT ADVISOR procedure are in the results section. ESTIMATED GFR Routine 03/21/2018 4:17 Results for this AM ACCOUNT ADVISOR procedure are in the results section. T4, FREE Routine 03/21/2018 4:17 Results for this AM ACCOUNT ADVISOR procedure are in the results section. THYROID STIMULATING Routine 03/21/2018 4:17 Results for this HORMONE AM ACCOUNT ADVISOR procedure are in the results section. LIPID PANEL Routine 03/21/2018 4:17 Results for this AM ACCOUNT ADVISOR procedure are in the results section. BASIC METABOLIC PANEL Routine 03/21/2018 4:17 Results for this AM ACCOUNT ADVISOR procedure are in the results section. HC COMPLETE BLD COUNT Routine 03/21/2018 4:17 Results for this W/AUTO DIFF AM ACCOUNT ADVISOR procedure are in the results section. HEMOGLOBIN A1C Routine 03/20/2018 11:58 Results for this PM ACCOUNT ADVISOR procedure are in the results section. TROPONIN Timed 03/20/2018 11:58 Results for this PM ACCOUNT ADVISOR procedure are in the results section. POC GLUCOSE Routine 03/20/2018 11:48 Results for this PM ACCOUNT ADVISOR procedure are in the results section. XR CHEST 1 VW PORTABLE STAT 03/20/2018 11:33 Results for this PM ACCOUNT ADVISOR procedure are in the results section. CT HEAD WO CONTRAST STAT 03/20/2018 11:16 Results for this PM ACCOUNT ADVISOR procedure are in the results section. ESTIMATED GFR STAT 03/20/2018 5:28 Results for this PM ACCOUNT ADVISOR procedure are in the results section. B NATRIURETIC PEPTIDE STAT 03/20/2018 5:28 Results for this PM ACCOUNT ADVISOR procedure are in the results section. TROPONIN STAT 03/20/2018 5:28 Results for this PM ACCOUNT ADVISOR procedure are in the results section. COMPREHENSIVE METABOLIC STAT 03/20/2018 5:28 Results for this PANEL PM ACCOUNT ADVISOR procedure are in the results section. PROTHROMBIN TIME WITH STAT 03/20/2018 5:28 Results for this INR PM ACCOUNT ADVISOR procedure are in the results section. PARTIAL THROMBOPLASTIN STAT 03/20/2018 5:28 Results for this TIME (PTT) PM ACCOUNT ADVISOR procedure are in the results section. HC COMPLETE BLD COUNT STAT 03/20/2018 5:28 Results for this W/AUTO DIFF PM ACCOUNT ADVISOR procedure are in the results section. ECG 12-LEAD STAT 03/20/2018 5:24 Results for this PM ACCOUNT ADVISOR procedure are in the results section. POC [...] are in SPECTRAL COLOR DOPPLER the results (16400) section. ESTIMATED GFR Routine 02/09/2018 4:14 Results [...] procedure are in the results section. after 10/03/2017 Results POC glucose (03/31/2018 8:28 AM ACCOUNT ADVISOR)Only the most recent of92 resultswithin the time period is included. [facility] POC glucose 341 (H) 65 - 99 mg/dL [facility]: [facility] Notified RN Meter ID: [id number] Farm Management Agent: Cem Colon Specimen Performing Organization Address City/State/Zipcode Phone Number [facility] DEPARTMENT OF PATHOLOGY AND [address] [place] [address] GENOMIC MEDICINE [address] [address] Estimated GFR (03/31/2018 3:19 AM ACCOUNT ADVISOR)Only the most recent of19 resultswithin the time period is included. [facility] Estimated GFR 40 (A) mL/min/1.73 [facility] Comment: [address] CatergoryUnitsInterpretation G1 >=90 Normal or high G2 60-89Mildly decreased H0w81-22Omzupe to moderately decreased H5r22-78Cokvcjomul to severely decreased G4 15-29Severely decreased G5 <15Kidney failure The eGFR was calculated using the Chronic Kidney Disease Epidemiology Collaboration (CKD-EPI) equation. Interpretation is based on recommendations of the National Kidney Foundation-Kidney Disease Outcomes Quality Initiative (NKF-KDOQI) published in 2014. Specimen Plasma specimen Performing Organization Address [facility] Phone Number [facility] DEPARTMENT OF PATHOLOGY AND [address] [place] [address] Basic metabolic panel (03/31/2018 3:19 AM ACCOUNT ADVISOR)Only the most recent of15 resultswithin the time period is included. Sodium 137 135 - 148 mEq/L [facility] Potassium 4.3 3.5 - 5.0 mEq/L [facility] Chloride 96 (L) 98 - 112 mEq/L [facility] CO2 25 24 - 31 mEq/L [facility] Anion gap 16@ANIO (H) 7 - 15 mEq/L [facility] BUN 61 (H) 6 - 20 mg/dL [facility] Creatinine 1.91 (H) 0.70 - 1.20 mg/dL [facility] Glucose 336 (H) 65 - 99 mg/dL [facility] Calcium 9.7 8.3 - 10.2 mg/dL [facility] Specimen Plasma specimen Performing Organization Address [facility]n Phone Number [facility] DEPARTMENT OF PATHOLOGY AND [address] [place] [address] Albumin level (03/26/2018 3:50 PM ACCOUNT ADVISOR) Albumin 3.3 (L) 3.5 - 5.0 g/dL [facility] Specimen Plasma specimen Performing Organization Address City/[facility] Phone Number [facility] DEPARTMENT OF PATHOLOGY AND [address] [place] [address] Us duplex venous lower extremity (03/26/2018 2:24 PM ACCOUNT ADVISOR) Specimen Narrative Performed At [facility] Lower Extremity Venous Report [address] [place] [address] Pat.Name:PAOLA KWONG Pat.ID:[id number] .Date: 03/26/2018Refer.MD:USHA OQUENDO MD Exam Time: 1:48:00 PMStudy Type:LE Venous Height:67inWeight: 227lb BSA: 2.14 m2 DOBAge:1965,52Y Sex: MALESonogrphr: Florence Eli RVT Pat. Stat.:Inpatient Room:[address] TapeVol: ZACHARIAH, CPT - 4: 98603 Echo Event ID:[id number] Order ID:[id number] Reason for Study:LE swelling and pain, evaluation [...] Radiology Results In - 03/26/2018 8:54 PM [facility] V[facility]trasound Laboratory Lower Extremity Venous Report [id number] [address] Pat.Name: PAOLA KWONG Pat.ID: [id number] .Date: 03/26/2018 Refer.MD: USHA OQUENDO MD Exam Time: 1:48:00 PM Study Type:LE Venous Height: 67in Weight: 227lb BSA: 2.14 m2 Age: 6 1965,52Y Sex: MALE Sonogrphr: Florence Eli RVT Pat. Stat.:Inpatient Room: [address] Tape Vol: JJ, CPT - 4: 14223 Echo Event ID:[id number] Order ID: [id number] Reason for Study:LE swelling and pain, evaluation [...] Valentín Vallejo MD, RPVI Performing Organization Address City/State/Zipcode Phone Number [facility] [address] [place] [address] B natriuretic peptide (03/25/2018 3:30 AM ACCOUNT ADVISOR)Only the most recent of3 resultswithin the time period is included. BNP 194 (H) 0 - 100 pg/mL [facility] Specimen Blood Performing Organization Address City/[facility]/Zipcode Phone Number [facility] DEPARTMENT OF PATHOLOGY AND [address] [place] [phone] [address] CBC with platelet and differential (03/24/2018 3:30 AM ACCOUNT ADVISOR)Only the most recent of9 resultswithin the time period is included. WBC 4.40 (L) 4.50 - 11.00 [facility] k/uL HOSPITAL RBC 3.30 (L) 4.40 - 6.00 [facility] m/uL [facility] HGB 10.2 (L) 14.0 - 18.0 [facility] gdL [facility] HCT 30.2 (L) 41.0 - 51.0 % [facility] MCV 91.5 82.0 - 100.[address] [facility] MCH 30.9 27.0 - 34.0 pg [facility] MCHC 33.8 31.0 - 37.0 [facility] g/[place] [employer] RDW - SD 44.3 37.0 - 55.0 fL [facility] MPV 13.2 8.8 - 13.2 fL [facility] Platelet count 138 (L) 150 - 400 k/uL [facility] Nucleated RBC 0.00 /100 WBC [facility] Neutrophils 50.1 39.0 - 69.0 % [facility] Lymphocytes 33.9 25.0 - 45.0 % [facility] Monocytes 8.9 0.0 - 10.0 % [facility] Eosinophils 5.9 (H) 0.0 - 5.0 % [facility] Basophils 0.7 0.0 - 1.0 % [facility] Immature granulocytes 0.5Comment: 0.0 - 1.0 % [facility] "Immature HOSPITAL granulocytes" (promyelocytes , myelocytes, metamyelocytes ) Specimen Blood Performing Organization Address City/[facility]/Zipcode Phone Number [facility] DEPARTMENT OF PATHOLOGY AND [address] [place], [place] [address] [place] [phone] Hepatitis C antibody (03/22/2018 4:00 AM ACCOUNT ADVISOR) Hepatitis C Ab Non-reactive Non-reactive [facility] Specimen Blood Performing Organization Address City/State/[facility] Phone Number [facility] DEPARTMENT OF PATHOLOGY AND [address] [place] [phone] Hepatitis B core antibody total (03/22/2018 4:00 AM ACCOUNT ADVISOR) Hepatitis B core Non-reactive Non-reactive [facility] Specimen Blood Performing Organization Address City/[facility] Phone Number [facility] DEPARTMENT OF PATHOLOGY AND [address] [place] [phone] Hepatitis B surface antibody (03/22/2018 4:00 AM ACCOUNT ADVISOR) Hepatitis B surface Non-reactive Non-reactive [facility] Specimen Blood Performing Organization Address City/[facility]ode Phone Number [facility] DEPARTMENT OF PATHOLOGY AND [address] [place] [phone] Hepatitis B surface antigen (03/22/2018 4:00 AM ACCOUNT ADVISOR) Hepatitis B surface Non-reactive Non-reactive [facility] Specimen Blood Performing Organization Address City/[facility]ode Phone Number [facility] DEPARTMENT OF PATHOLOGY AND [address] [place] [phone] Rheumatoid factor (03/22/2018 4:00 AM ACCOUNT ADVISOR)Only the most recent of2 resultswithin the time period is included. Pathologist [facility] Rheumatoid factor <10 0 - 13 IU/mL [facility] Specimen Plasma specimen Performing Organization Address City/[facility] Phone Number [facility] DEPARTMENT OF PATHOLOGY AND [address] [place] [phone] C3 complement component (03/22/2018 4:00 AM ACCOUNT ADVISOR) Pathologist [facility] C3 complement 139 90 - 180 mg/dL [facility] Specimen Plasma specimen Performing Organization Address City/[facility] Phone Number [facility] DEPARTMENT OF PATHOLOGY AND [address] [place] [phone] [address] C4 complement component (03/22/2018 4:00 AM ACCOUNT ADVISOR) C4 complement 25 10 - 40 mg/dL [facility] Specimen Plasma specimen Performing Organization Address City/[facility] Phone Number [facility] DEPARTMENT OF PATHOLOGY AND [address] [place] [id number] [place] [address] ANNE (03/22/2018 4:00 AM ACCOUNT ADVISOR) ANNE screen Negative Negative [facility] Specimen Blood Performing Organization Address City/[facility] Phone Number [facility] DEPARTMENT OF PATHOLOGY AND [address] [place] [address] [address] Serum electrophoresis (03/22/2018 4:00 AM ACCOUNT ADVISOR) Protein 5.9 (L) 6.3 - 8.3 [place] Comment: g/dL [facility] Daisy 4.6-7.0 g/dL HOSPITAL 1 week 4.4-7.6 g/dL 7 months-1year5.1-7.3 g/dL 1-2 years5.6-7.5 g/dL >3 years6.0-8.0 g/dL 18-150 6.3-8.3 g/dL SPE albumin 3.57 (L) 4.00 - 5.30 [place] g/dL [facility] SPE alpha 1 0.15 0.10 - 0.25 [place] g/dL [facility] SPE alpha 2 0.70 0.58 - 0.84 [place] g/dL [facility] SPE beta 0.94 0.50 - 1.10 [place] g/dL [facility] SPE gamma 0.54 (L) 0.60 - 1.30 [place] g/dL [facility] SPE extended See Comment [place] interpretation Comment: [facility] Total protein and albumin are decreased suggesting protein malnutrition. HOSPITAL Gamma globulins are slightly decreased.646 SPE interpretation See [place] CommentComment: [facility] Alethea Camacho, [facility] PhD; Mally Phillips MD; Toribio Mcgrath MD, PhD Specimen Serum Performing Organization Address City/[facility]/Zipcode Phone Number [facility] DEPARTMENT OF PATHOLOGY AND [address] [place] [address] Urine protein electrophoresis, 24 hour (03/21/2018 5:30 PM ACCOUNT ADVISOR) Collection start 03-21-18 [facility], urine [facility] Collection start 17:30 [facility], urine [facility] Collection stop date, 03/22/18 [facility] Collection stop time, 17:30 [facility] Hours of collection 24 [facility] Total volume, urine 2,350 mL [facility] Urine protein 103 mg/dL [place] concentration [facility] Urine protein 24 hr 2,421 (H) 0 - 150 [place] excretion mg/24hrs [facility] UPE albumin 81.7 % [facility] UPE globulin 18.3 % [facility] UPE extended See Comment [place] interpretation Comment: [facility]IANITY An abnormal 24 hour urine protein study with proteinuria of 2421 mg/24 HOSPITAL hours. The proteinuria is in a glomerular pattern.646 UPE interpretation See [place] CommentComment: [facility] PhD; Mally Vasquez MD; Toribio Mcgrath MD, PhD Specimen Urine Performing Organization Address City/[facility]/Zipcode Phone Number [facility] DEPARTMENT OF PATHOLOGY AND [address] [place] [address] Creatinine clearance, urine, 24 hour (03/21/2018 5:30 PM ACCOUNT ADVISOR)Only the most recent of2 resultswithin the time period is included. Collection start 03-21-18 [facility], urine [facility] Collection start 17:30 [facility], urine [facility] Collection stop date, 03/22/18 [facility] Collection stop time, 17:30 [facility] Hours of collection 24 [facility] Total volume, urine 2,350 mL [facility] Creatinine 2.74 (H) 0.70 - 1.20 [place] mg/dL [facility] Urine creatinine 78 mg/dL [place] clearance [facility] Urine creatinine 1,833 mg/vol [place] clearance excretion [facility] Creat clearance, 46 mL/min [place] urine 24 hr calc Comment: [facility] CREATININE CLEARANCE REFERENCE RANGE: HOSPITAL MALES 85 - 125 ML/MIN/1.73 SQ.METER FEMALES 75 - 115 ML/MIN/1.73 SQ.METER Specimen Urine Performing Organization Address City/[facility] Phone Number [facility] DEPARTMENT OF PATHOLOGY AND [address] [place] [address] GENOMIC MEDICINE [facility] [address] [place] [address] [place] Renal (03/21/2018 11:18 AM ACCOUNT ADVISOR) Specimen Narrative Performed At EXAMINATION:US RENAL [facility] CLINICAL HISTORY:Renal failureacute (kidney injury) COMPARISON:None. FINDINGS: The kidneys are normal in size and echogenicity. There is no evidence of renal mass, calculi, or hydronephrosis. The right kidney measures 13.3 x 6.5 x 6.7 cm The left kidney measures 12.9 x 6.7 x 5.7 cm The urinary bladder is unremarkable. IMPRESSION: Mild-moderate renal cortical atrophy is present. [facility]-[id number] Procedure Note Interface, Radiology Results Incoming - 03/21/2018 1:39 PM ACCOUNT ADVISOR EXAMINATION: US RENAL CLINICAL HISTORY: Renal failure acute (kidney injury) COMPARISON: None. FINDINGS: The kidneys are normal in size and echogenicity. There is no evidence of renal mass, calculi, or hydronephrosis. The right kidney measures 13.3 x 6.5 x 6.7 cm The left kidney measures 12.9 x 6.7 x 5.7 cm The urinary bladder is unremarkable. IMPRESSION: Mild-moderate renal cortical atrophy is present. [facility]-[id number] Performing Organization Address City/[facility] Phone Number [facility] [address] [place] [address] Urinalysis screen and microscopy, with reflex to culture (03/21/2018 6:47 AM ACCOUNT ADVISOR)Only the most recent of2 resultswithin the time period is included. Specimen site Clean catch [facility] Color, UA Yellow [facility] Appearance, UA Clear [facility] Specific gravity, UA 1.014 1.001 - 1.035 [facility] pH, UA 5.0 5.0 - 8.5 [facility] Protein, UA 3+ (A) Negative [facility] Glucose, UA 1+ (A) Negative [facility] Ketones, UA Negative Negative [facility] Bilirubin, UA Negative Negative [facility] Blood, UA Negative Negative [facility] Nitrite, UA Negative Negative [facility] Urobilinogen, UA <2.0 <2.0 [facility] Leukocyte esterase, Negative Negative [facility] Epithelial cells, UA <1 /HPF [facility] WBC, UA None seen 0 - 1 /HPF [facility] RBC, UA 1 0 - 5 /HPF [facility] Bacteria, UA None seen None seen [facility] Yeast, UA None seen [facility] Yeast with None seen [facility] Hyaline casts, UA >20 (A) /LPF [facility] Specimen Urine Performing Organization Address City/[facility] Phone Number [facility] DEPARTMENT OF PATHOLOGY AND [address] [place] [address] Urine culture (03/21/2018 6:47 AM ACCOUNT ADVISOR)Only the most recent of2 resultswithin the time period is included. Urine culture SEE COMMENTComment: [facility] Bacteriuria screen HOSPITAL negative. Specimen Performing Organization Address City/[facility] Phone Number [facility] DEPARTMENT OF PATHOLOGY AND [address] [place] [address] Thyroid stimulating hormone (03/21/2018 4:17 AM ACCOUNT ADVISOR)Only the most recent of3 resultswithin the time period is included. TSH 1.15 0.27 - 4.20 uIU/mL [facility] Specimen Plasma specimen Performing Organization Address City/[facility] Phone Number [facility] DEPARTMENT OF PATHOLOGY AND [address] [place] [address] T4, free (03/21/2018 4:17 AM ACCOUNT ADVISOR)Only the most recent of3 resultswithin the time period is included. T4, free 0.8 (L) 0.9 - 1.7 ng/dL [facility] Specimen Plasma specimen Performing Organization Address City/[facility] Phone Number [facility] DEPARTMENT OF PATHOLOGY AND [address] [place] [phone] [place] [address] Lipid panel (03/21/2018 4:17 AM ACCOUNT ADVISOR)Only the most recent of3 resultswithin the time period is included. Cholesterol 165 <200 mg/dL [facility] Triglycerides 347 (H) <150 mg/dL [facility] HDL cholesterol 34 (L) >40 mg/dL [facility] LDL cholesterol 99Comment: Result <100 mg/dL [place] obtained by direct [facility] LDL measurement [facility] Lipid panel [facility] interpretation Comment: [facility] Total Cholesterol (mg/dL) [facility] <200 Desirable 362-851Wkjmevugte-wwfl >=240High Triglycerides (mg/dL) <150 Normal 733-927Xppouxfore-yvuj 200-499High >=500Very high HDL Cholesterol (mg/dL) <40Low (male) <40Low (female) LDL Cholesterol (mg/dL) <100 Optimal 100-129Near or above optimal [phone]-dvrd 160-189High >=190Very high Risk Catergories that modify [...] specimen Performing Organization Address City/State/Zipcode Phone Number [facility] DEPARTMENT OF PATHOLOGY AND [address] [place] [address] [address] Troponin (03/20/2018 11:58 PM ACCOUNT ADVISOR)Only the most recent of4 resultswithin the time period is included. Troponin <0.30 0.00 - 0.30 [facility] Comment: ng/mL HOSPITAL 0.30 - 1.49 ng/mlMay indicate increased risk of acute coronary syndrome. >=1.5 ng/mlConsistent with acute myocardial infarction. The diagnostic value of a single normal or non-diagnostic result is questionable.Serial samples at 2-6 hour intervals are required to rule out acute myocardial injury. Specimen Plasma specimen Performing Organization Address City/State/Zipcode Phone Number [facility] DEPARTMENT OF PATHOLOGY AND [address] [place] [address] [place] [address] Hemoglobin A1c (03/20/2018 11:58 PM ACCOUNT ADVISOR)Only the most recent of3 resultswithin the time period is included. Hemoglobin A1C 9.1 (H) 4.0 - 5.6 % [facility] Comment: HOSPITAL HbA1c cutoffs for diagnosing diabetes: 4.0% - 5.6%=normal 5.7% - 6.4%=increased risk for diabetes (prediabetes) >=6.5%=diabetes Goals for glycemic control (ADA 2016) < 7.0%Target for non adults with diabetes. More or less stringent targets may be appropriate for individual patients. <7.5% Target for Children and adolescents with type 1 diabetes. Specimen Blood Performing Organization Address City/State/Zipcode Phone Number [facility] DEPARTMENT OF PATHOLOGY AND [address] [place] [phone] [place] [address] XR Chest 1 Vw Portable (03/20/2018 11:33 PM ACCOUNT ADVISOR) Specimen Narrative Performed At EXAMINATION:XR CHEST 1 VW PORTABLE [facility] CLINICAL HISTORY: Shortness of breath COMPARISON:11/27/2013 IMPRESSION: No radiographic evidence for acute cardiopulmonary process. Cardiomediastinal silhouette is within normal limits of size. No focal or confluent airspace consolidation is seen on this single AP plane to suggest acute pneumonia. No sizable pleural effusion. No pneumothorax identified. No acute osseous abnormalities are visualized. [facility]-[id number] Procedure Note Hm Interface, Radiology Results Incoming - 03/20/2018 11:40 PM ACCOUNT ADVISOR EXAMINATION: XR CHEST 1 VW PORTABLE CLINICAL HISTORY: Shortness of breath COMPARISON: 11/27/2013 IMPRESSION: No radiographic evidence for acute cardiopulmonary process. Cardiomediastinal silhouette is within normal limits of size. No focal or confluent airspace consolidation is seen on this single AP plane to suggest acute pneumonia. No sizable pleural effusion. No pneumothorax identified. No acute osseous abnormalities are visualized. [facility]-[id number] Performing Organization Address City/State/Zipcode Phone Number [facility] [address] [place] [address] CT Head Wo Contrast (03/20/2018 11:16 PM ACCOUNT ADVISOR)Only the most recent of2 resultswithin the time period is included. Specimen Narrative Performed At EXAMINATION: CT HEAD WO [...] normal. IMPRESSION: No acute intracranial abnormality identified. [facility]-[id number] Procedure Note Hm Interface, Radiology Results Incoming - 03/20/2018 11:23 PM ACCOUNT ADVISOR EXAMINATION: CT HEAD WO CONTRAST CLINICAL HISTORY: [...] normal. IMPRESSION: No acute intracranial abnormality identified. [facility]-[id number] Performing Organization Address [facility] Phone Number [facility] [address] [place] [address] Partial thromboplastin time, activated (03/20/2018 5:28 PM ACCOUNT ADVISOR)Only the most recent of2 resultswithin the time period is included. Pathologist [facility] PTT 27.5 23.0 - 36.0 [place] [facility] Comment: [facility] PTT therapeutic range for unfractionated heparin is 61.0-112.0 seconds which corresponds to Anti-Xa 0.3-0.7 U/ml. Specimen Blood Performing Organization Address [facility] Phone Number [facility] DEPARTMENT OF PATHOLOGY AND [address] [place] [phone] [place] [address] Prothrombin time with INR (03/20/2018 5:28 PM ACCOUNT ADVISOR)Only the most recent of2 resultswithin the time period is included. [facility] Prothrombin time 13.2 11.5 - 14.5 [facility] INR 1.0 [place] Comment: [facility] The International Normalized Ratio (INR) is a therapeutic HOSPITAL monitoring tool for patients who are stable on oral anticoagulant therapy. An INR of 2.0-3.0 is suggested for deep vein thrombosis/pulmonary embolism. Specimen Blood Performing Organization Address [facility] Phone Number [facility] DEPARTMENT OF PATHOLOGY AND [address] [place] [phone] [place] [address] Comprehensive metabolic panel (03/20/2018 5:28 PM ACCOUNT ADVISOR)Only the most recent of2 resultswithin the time period is included. Pathologist [facility] Sodium 139 135 - 148 [facility] mEq/L [facility] Potassium 4.8 3.5 - 5.0 [facility] mEq/L [facility] Chloride 103 98 - 112 mEq/L [facility] CO2 22 (L) 24 - 31 mEq/L [facility] Anion gap 14@ANIO 7 - 15 mEq/L [facility] BUN 57 (H) 6 - 20 mg/dL [facility] Creatinine 2.49 (H) 0.70 - 1.20 [facility] mg/dL [facility] Glucose 332 (H) 65 - 99 mg/dL [facility] Calcium 8.9 8.3 - 10.2 [facility] mg/dL [facility] Protein 6.1 (L) 6.3 - 8.3 g/dL [facility] Comment: HOSPITAL 4.6-7.0 g/dL 1 week 4.4-7.6 g/dL 7 months-1year5.1-7.3 g/dL 1-2 years5.6-7.5 g/dL >3 years6.0-8.0 g/dL 18-150 6.3-8.3 g/dL Albumin 2.9 (L) 3.5 - 5.0 g/dL [facility] A/G ratio 0.9 0.7 - 3.8 [facility] Alkaline phosphatase 70 40 - 129 U/L [facility] AST 19 10 - 50 U/L [facility] ALT 19 5 - 50 U/L [facility] Total bilirubin 0.3 0.0 - 1.2 [facility] mg/dL [facility] Specimen Plasma specimen Performing Organization Address City/State/Zipcode Phone Number [facility] DEPARTMENT OF PATHOLOGY AND [address] [place] [address] GENOMIC MEDICINE [address] [address] ECG 12 lead (03/20/2018 5:24 PM ACCOUNT ADVISOR)Only the most recent of2 resultswithin the time period is included. Ventricular rate 58 [facility] Atrial rate 58 [facility] [place] interval 138 [facility] QRSD interval 146 [facility] QT interval 474 [facility] QTC interval 465 [facility] P axis 1 29 [facility] QRS axis 1 76 [facility] T wave axis 34 [facility] EKG impression Sinus bradycardia-Right [facility] MUSE bundle branch block-Abnormal ECG-In automated comparison with ECG of 07-FEB-2018 10:01,-No significant change was found- Specimen Narrative Performed At Performing Organization Address [facility] Phone Number [facility] MUSE [address] [place] [address] XR Forearm 2 Vw Right (02/13/2018 11:25 AM CDT) Specimen Narrative Performed At EXAMINATION:XR FOREARM 2 VW RIGHT [facility] CLINICAL HISTORY:right forearm pain COMPARISON:none. IMPRESSION: 1.No displaced fractures or dislocations. IV catheter noted along the volar aspect of the forearm. [facility]-[id number] Procedure Note Interface, Radiology Results Incoming - 02/13/2018 11:44 AM CDT EXAMINATION: XR FOREARM 2 VW RIGHT CLINICAL HISTORY: right forearm pain COMPARISON: none. IMPRESSION: 1. No displaced fractures or dislocations. IV catheter noted along the volar aspect of the forearm. [facility]-[id number] Performing Organization Address [facility] Phone Number [facility] [address] [place] [address] [place] Modified Barium Swallow (02/13/2018 10:26 AM CDT) Specimen Narrative Performed At EXAMINATION:[place] MODIFIED BARIUM SWALLOW [...] to Speech Pathology report for further details. [facility]-[id number] Procedure Note Interface, Radiology Results Incoming - [...] to Speech Pathology report for further details. [facility]-[id number] Performing Organization Address [facility] Phone Number [facility] [address] [place] [address] Cardiac mri stroke eval w contrast (02/12/2018 12:06 PM CDT) Specimen Narrative Performed At [facility] [employer] CMR Report Name:PAOLA KWONG :1965 Scan Date: [...] Lateral | Normal/Hyper | None ||| | [place] | Normal/Hyper | None ||| + + [...] SCAN INFO GENERAL CONTRAST AGENT TYPE:Dotarem LOT NUMBER:[id number] EXPIRATION DATE:2018-09-26 00:00:00 VOLUME ADMINISTERED:26 ml DOSAGE FOR 0.5M:0.15 mmol/kg SERUM CREATININE:1.5 sCr GFR:52.65 ml/min/1.73m^2 CREATININE DATE:2018-02-12 00:00:00 SEDATION SEDATION USED?:Yes TYPE:Lorazepam DOSE:0.5 mg ANY REACTION?:No PULSE SEQUENCES Single-Shot SSFP, IR SSFP - Single Shot, SSFP Cine, Phase Contrast Velocity Mapping, 3D MRA w and w/o contrast, Time-Resolved 3D MRA SETUP TYPE:Clinical INPATIENT:Yes LOCATION:[facility] INCOMPLETE SCAN:No REASON(S) FOR SCAN:Stroke Evaluation REFERRING PHYSICIAN:Usha Oquendo MD ATTENDING PHYSICIAN:USHA LICEA TECHNICIANS:1) Danielle CASIANO Patient Account [id number] CPT Codes 79320, 23677 ICD10 Codes G45.9 Report generated by [employer], a product of [employer] Procedure Note Interface, Radiology Results In - [...] Normal/Hyper | None | | | | [place] | Normal/Hyper | None | | | [...] GENERAL CONTRAST AGENT TYPE: Dotarem LOT NUMBER: [id number] EXPIRATION DATE: 2018-09-26 00:00:00 VOLUME ADMINISTERED: 26 [...] MRA SETUP TYPE: Clinical INPATIENT: Yes LOCATION: [facility] INCOMPLETE SCAN: No REASON(S) FOR SCAN: Stroke Evaluation REFERRING PHYSICIAN: Usha Oquendo MD ATTENDING PHYSICIAN: USHA LICEA TECHNICIANS: 1) Danielle CASIANO BILLING Patient Account [id number] CPT Codes 04662, 52535 ICD10 Codes G45.9 Report generated by [employer], a product of [employer] Performing Organization Address [facility] Phone Number [facility] [address] [place] [address] CT Sinus Wo Contrast (02/11/2018 8:24 PM CDT) Specimen Narrative Performed At EXAMINATION:CT SINUS WO CONTRAST [facility] WAS PERFORMED WITH ITERATIVE RECONSTRUCTION [...] on the left. IMPRESSION: No significant abnormality. [facility]-[id number] Procedure Note Interface, Radiology Results Incoming - [...] on the left. IMPRESSION: No significant abnormality. [facility]-[id number] Performing Organization Address [facility]/Zipcode Phone Number [facility] [address] [place] [address] Vitamin D 25 hydroxy level (02/11/2018 4:30 AM CDT) Vitamin D, 6.5 (L) 30.0 - 150.0 [facility] DEPARTMENT OF 25-hydroxy Comment: ng/mL PATHOLOGY AND This assay reports the sum of 25-hydroxy vitamin D3 and 25-hydroxy vitamin GENOMIC MEDICINE D2. Reference range: 0-17 years: Deficiency: [...] alternative methods. Specimen Blood Performing Organization Address [facility]/Zipcode Phone Number [facility] DEPARTMENT OF PATHOLOGY AND [address] [place] [address] [facility] Lipase level (02/11/2018 4:30 AM CDT) Lipase 77 (H) 13 - 60 U/L [facility] DEPARTMENT OF PATHOLOGY AND GENOMIC MEDICINE Specimen Plasma specimen Performing Organization Address [facility] Phone Number [facility] DEPARTMENT OF PATHOLOGY AND [address] [place], [place] [phone] [facility] Amylase level (02/11/2018 4:30 AM CDT) Amylase 71 28 - 100 U/L [facility] DEPARTMENT OF PATHOLOGY AND GENOMIC MEDICINE Specimen Plasma specimen Performing Organization Address [facility]/Zipcode Phone Number [facility] DEPARTMENT OF PATHOLOGY AND [address] [place] [address] MRI Brain Wo Contrast (02/10/2018 12:02 PM CDT)Only the most recent of2 resultswithin the time period is included. 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 [facility]-[id number] Performing Organization Address City/State/Zipcode Phone Number [facility] [address] [place] [address] Echocardiogram complete w contrast and 3D if needed (02/09/2018 8:20 AM CDT) Specimen Narrative Performed At [facility] Echocardiography Report [address] [facility] [address], [place] [address] Pat.Name:PAOLA KWONG Pat.ID:[id number] .Date: 02/09/2018Refer.MD:MILTON ELLINGTON MD Exam Time: 7:43:00 AMStudy Type:Routine Echo Height:67inBSA: 1.97 m2 DOBAge:1965,52YSex: MALE BP:127/63HR: 68 bpm Sonogrphr: Rosemary Slater RDCS, RVTPat. Stat.:Inpatient Room:[address] Study Status:Final Echo Event ID:[id number] Order ID:[id number] Reason for Study:Stroke History / Clinical:Chest Pain, Diabetes, Hyperlipidemia, Hypertension, Cirrhosis, [place], Infectious Viral Hepatitis Procedures:2D Echo, Colorflow Doppler, [...] PA systolic pressure. MEASUREMENTS: 2D Parasternal Long Mcdonald LVOT 2.2 cmLA Ds4.2 cm LVIDd5 cmIndex2.5 cm/m Ao An2.5 cm LVIDs2.8 cmAo Rtd 3.4 cm Index1.7 cm/m LV%fs 44 % LV Huud040.4 g(122-174) IVSd 1 cmLVM Index 98.7 g/m2 LVPWd1.1 cmRWT0.4 LA S[address]ane LA Area 24.3 cm2(8.8-23.4) [place] Vol78.5 ml Index39.8 ml/m LA LngAx 6.5 cm DOPPLER LVOT Stroke Vol LVOT 2.2 cmLVOT CO4.9 l/min LVOT TVI21.7 cmLVOT CI2.5 l/m/m2 LVOT Tm382 udljWF22 bpm LVOT SV 82.6 ml Signed 02/09/2018 02:05 PM Tulio Daniels M.D. Procedure Note Interface, Radiology Results In - 02/09/2018 2:05 PM CDT Echocardiography Report [address] [place] [address] Pat.Name: PAOLA KWONG Pat.ID: [id number] St.Date: 02/09/2018 Refer.MD: MILTON ELLINGTON MD Exam Time: 7:43:00 AM Study Type:Routine Echo Height: 67in BSA: 1.97 m2 Age: 4 1965,52Y Sex: MALE BP: 127/63 HR: 68 bpm Sonogrphr: Rosemary Slater RDCS, RVT Pat. Stat.:Inpatient Room: [address] Study Status:Final Echo Event ID:[id number] Order ID: [id number] Reason for Study:Stroke History / Clinical:Chest Pain, Diabetes, Hyperlipidemia, Hypertension, Cirrhosis, [place], Infectious Viral Hepatitis Procedures:2D Echo, Colorflow Doppler, [...] PA systolic pressure. MEASUREMENTS: 2D Parasternal Long Mcdonald LVOT 2.2 cm LA Ds 4.2 cm [...] Performing Organization Address City/State/Zipcode Phone Number [facility] [address] [place] [address] Glucose level (02/08/2018 8:33 PM CDT) Glucose 502 (HH) 65 - 99 mg/dL [facility] DEPARTMENT OF PATHOLOGY AND GENOMIC MEDICINE Specimen Plasma specimen Performing Organization Address City/[facility] Phone Number [facility] DEPARTMENT OF PATHOLOGY AND [address] [place] [address] GENOMIC [facility] Potassium level (02/08/2018 3:27 PM CDT) Potassium 4.3 3.5 - 5.0 mEq/L [facility] DEPARTMENT OF PATHOLOGY AND GENOMIC MEDICINE Specimen Plasma specimen Performing Organization Address City/[facility] Mex[facility]ode Phone Number [facility] DEPARTMENT OF PATHOLOGY AND [address] [place] [address] Magnesium level (02/08/2018 3:27 PM CDT) Magnesium 2.0 1.6 - 2.6 mg/dL [facility] DEPARTMENT OF PATHOLOGY AND GENOMIC MEDICINE Specimen Plasma specimen Performing Organization Address City/[facility] Mex[facility]n Phone Number [facility] DEPARTMENT OF PATHOLOGY AND [address] [place] [address] MRI Lumbar Spine Wo Contrast (02/08/2018 9:03 AM CDT) Specimen Narrative Performed At EXAMINATION:MRI LUMBAR SPINE WO [...] bilateral foraminal narrowing. No central canal narrowing. [facility]-[id number] Procedure Note Hm Interface, Radiology Results Incoming - 02/08/2018 11:11 [...] bilateral foraminal narrowing. No central canal narrowing. [facility]-[id number] Performing Organization Address [facility] Phone Number [facility] [address] [place] [address] MRI Thoracic Spine Wo Contrast (02/08/2018 8:49 AM CDT) Specimen Narrative Performed At EXAMINATION:MRI THORACIC SPINE WO CONTRAST [facility] CLINICAL HISTORY:sensory level suspected compression COMPARISON:None. IMPRESSION: Thoracic spine alignment is within normal limits. Heterogeneous bone marrow signal without focal suspicious lesions. Visualized spinal cord is normal in size and signal intensity. Mild multilevel endplate degenerative changes. No central canal or foraminal narrowing in the thoracic spine. [facility]-[id number] Procedure Note Hm Interface, Radiology Results Incoming [...] or foraminal narrowing in the thoracic spine. [facility]-[id number] Performing Organization Address [facility]oco[facility] Phone Number [facility] [address] [place] [address] MRI Cervical Spine Wo Contrast (02/08/2018 8:30 AM CDT) Specimen Narrative Performed At EXAMINATION:MRI CERVICAL SPINE WO [...] nerve roots. No significant spinal canal stenosis. [facility]-[id number] Procedure Note Interface, Radiology Results Incoming - [...] nerve roots. No significant spinal canal stenosis. [facility]-[id number] Performing Organization Address [facility]/State/Zipcode Phone Number [facility] [address] [place] [address] Urine drugs of abuse screen (02/08/2018 1:00 AM CDT) Amphetamine screen, Negative [facility] DEPARTMENT OF urine PATHOLOGY AND GENOMIC MEDICINE Barbiturate screen, Negative [facility] DEPARTMENT OF urine PATHOLOGY AND GENOMIC MEDICINE Benzodiazepine Negative [facility] DEPARTMENT OF screen, urine PATHOLOGY AND GENOMIC MEDICINE Cannabinoid screen, Negative [facility] DEPARTMENT OF urine PATHOLOGY AND GENOMIC MEDICINE Cocaine screen, urine Negative [facility] DEPARTMENT OF PATHOLOGY AND GENOMIC MEDICINE Methadone metabolite Negative [facility] DEPARTMENT OF (EDDP), urine PATHOLOGY AND GENOMIC MEDICINE Opiates screen, urine Negative [facility] DEPARTMENT OF PATHOLOGY AND GENOMIC MEDICINE Oxycodone screen, Negative [facility] DEPARTMENT OF urine PATHOLOGY AND GENOMIC MEDICINE Phencyclidine screen, Negative [facility] DEPARTMENT OF urine PATHOLOGY AND GENOMIC MEDICINE Tricyclic screen, Negative [facility] DEPARTMENT OF urine Comment: PATHOLOGY AND Drug screen minimum concentration of detectability GENOMIC MEDICINE Qnzhugtcjudv9887 ng/mL Barbiturates 200 ng/mL Ffdjeragddlrgfs771 ng/mL Eahnqwy102 ng/mL Nnqbmwmcx025 ng/mL Xinlizd753 ng/mL Cuwkyzwop185 ng/mL Phencyclidine 25 ng/mL Imcsobmqmiei39 ng/mL Ttvbnqvnho4096 ng/mL Negative test results indicates presumptive evidence of lack of clinically significant drug concentration in this urine specimen. Positive test results are presumptive evidence of clinically significant drug concentration in this urine specimen. Testing performed for medical purposes only. Specimen Urine Performing Organization Address City/[facility] Mex[facility]ode Phone Number [facility] DEPARTMENT OF PATHOLOGY AND [address] [place] [address] Sedimentation rate (02/08/2018 1:00 AM CDT) Pathologist [facility] Sedimentation rate 48 (H) 0 - 10 mm/hr [facility] DEPARTMENT OF PATHOLOGY AND GENOMIC MEDICINE Specimen Blood Performing Organization Address [facility] Mex[facility]ode Phone Number [facility] DEPARTMENT OF PATHOLOGY AND [address] [place] [address] Syphilis treponemal IgG (02/07/2018 9:55 PM CDT) Pathologist [facility] Syphilis Non-reactiveComment Non-reactive [facility] DEPARTMENT OF treponemal IgG : Non-reactive: No PATHOLOGY AND serological [facility] evidence of Syphilis infection Specimen Serum Performing Organization Address [facility] Phone Number [facility] DEPARTMENT OF PATHOLOGY AND [address] [place] [address] HIV Ag/Ab combination (02/07/2018 9:55 PM CDT) Pathologist [facility] HIV Ag/Ab Non-reactive Non-reactive [facility] DEPARTMENT OF combination PATHOLOGY AND GENOMIC MEDICINE Specimen Blood Performing Organization Address [facility] Phone Number [facility] DEPARTMENT OF PATHOLOGY AND [address] [place] [address] Homocystine, plasma (02/07/2018 9:54 PM CDT) Pathologist [facility] Homocysteine 16.5 (H) 0.0 - 15.0 [facility] DEPARTMENT OF Comment: umol/L PATHOLOGY AND The risk for coronary vascular disease increases progressively GENOMIC MEDICINE with homocysteine concentration.A 3.4 times greater risk is associated with a homocysteine concentration of greater than 15.8 umol/L as compared to a concentration below 14.1 umol/L. Specimen Plasma specimen Performing Organization Address [facility] Mex[facility]ode Phone Number [facility] DEPARTMENT OF PATHOLOGY AND [address] [place] [address] C-reactive protein (02/07/2018 9:54 PM CDT) Pathologist [facility] CRP 0.39 0.00 - 0.50 mg/dL [facility] DEPARTMENT OF PATHOLOGY AND GENOMIC MEDICINE Specimen Plasma specimen Performing Organization Address [facility] Mex[facility]ode Phone Number [facility] DEPARTMENT OF PATHOLOGY AND [address] [place] [address] Folate level (02/07/2018 9:54 PM CDT) Folate 18.4 4.8 - 24.2 ng/mL [facility] DEPARTMENT OF PATHOLOGY AND GENOMIC MEDICINE Specimen Serum Performing Organization Address City/[facility]/Zipcode Phone Number [facility] DEPARTMENT OF PATHOLOGY AND [address] [place] [address] [facility] Vitamin B12 level (02/07/2018 9:54 PM CDT) Vitamin B12 [phone] 946 [facility] DEPARTMENT OF Comment: pg/mL PATHOLOGY AND Significant overlap exists between normal and deficiency states. [facility] However, most patients with deficiencies will have Serum B12 <200 pg/mL. Specimen Serum Performing Organization Address City/[facility]/Zipcode Phone Number [facility] DEPARTMENT OF PATHOLOGY AND [address] [place] [id number] [facility] MRI Face Wo Contrast (02/07/2018 7:19 PM CDT) Specimen Narrative Performed At EXAMINATION:MRI FACE WO CONTRAST [...] IMPRESSION: Limited examination demonstrating no acute abnormality. [facility]-[id number] Procedure Note Hm Interface, Radiology Results Incoming [...] IMPRESSION: Limited examination demonstrating no acute abnormality. [facility]-[id number] Performing Organization Address [facility] MexicoRavello Systemsmn Phone Number [facility] [address] [place] [address] MRA Neck Wo Contrast (02/07/2018 7:19 PM CDT) Specimen Narrative Performed At EXAMINATION:MRA NECK WO CONTRASTINCLUDING 3D MIP RECONSTRUCTED [facility] IMAGES. CLINICAL HISTORY:STROKE COMPARISON:None. FINDINGS: 1. There is no significant abnormality demonstrated the common carotid artery bifurcations. There are tortuous cervical internal carotid arteries without stenosis. 2.The right vertebral artery slightly larger than the left. There is no significant abnormality demonstrated in the cervical vertebral arteries. IMPRESSION: No significant abnormality. [facility]-[id number] Procedure Note Interface, Radiology Results Incoming - [...] cervical vertebral arteries. IMPRESSION: No significant abnormality. [facility]-[id number] Performing Organization Address [facility] Phone Number [facility] [address] [place] [address] MRA Head Wo Contrast (02/07/2018 6:53 PM CDT) Specimen Narrative Performed At EXAMINATION:MRA HEAD WO CONTRASTINCLUDING [...] to that seen on the prior study. [facility]-[id number] Procedure Note Interface, Radiology Results Incoming - [...] to that seen on the prior study. [facility]-[id number] Performing Organization Address City/[facility] Mex[facility]ode Phone Number [facility] [address] [place] [address] C difficile toxin (02/07/2018 6:00 PM CDT) Clostridium No Clostridium difficle toxin present [facility] DEPARTMENT OF difficile toxin Comment: PATHOLOGY AND Specimen Information [facility] Specimen Source: Stool Specimen Site: Nonpreserved Specimen Stool - Nonpreserved Performing Organization Address City/State/[facility] Mex[facility]n Phone Number [facility] DEPARTMENT OF PATHOLOGY AND [address] [place], [place] [id number] [employer] CTA Head W Wo Contrast (02/07/2018 2:25 PM CDT) Specimen Narrative Performed At EXAMINATION:CT ANGIOGRAM HEAD W [...] diffuse moderate stenosis of right P1-P3 SENIOR SERVICE TECHNICIAN. There is normal contrast enhancement with no significant stenosis or occlusion along bilateral vertebral arteries, basilar artery, cerebellar arteries, and left SENIOR SERVICE TECHNICIAN. The vertebral arteries are codominant. The posterior communicating arteries are not well-visualized. There is no evidence of cerebral aneurysm in the proximal [place]. There is no evidence of perfusion-weighted defect on CTA source images. IMPRESSION: 1. Diffuse moderate stenosis of right P1-P3 SENIOR SERVICE TECHNICIAN. No significant stenosis or occlusion in remaining proximal [place]. 2. No evidence of perfusion-weighted defect on CTA source images. [facility]-[id number] Procedure Note Interface, Radiology Results Incoming - [...] diffuse moderate stenosis of right P1-P3 SENIOR SERVICE TECHNICIAN. There is normal contrast enhancement with no significant stenosis or occlusion along bilateral vertebral arteries, basilar artery, cerebellar arteries, and left SENIOR SERVICE TECHNICIAN. The vertebral arteries are codominant. The posterior communicating arteries are not well-visualized. There is no evidence of cerebral aneurysm in the proximal [place]. There is no evidence of perfusion-weighted defect on CTA source images. IMPRESSION: 1. Diffuse moderate stenosis of right P1-P3 SENIOR SERVICE TECHNICIAN. No significant stenosis or occlusion in remaining proximal [place]. 2. No evidence of perfusion-weighted defect on CTA source images. [facility]-[id number] Performing Organization Address City/State/Zipcode Phone Number [facility] [address] [place] [address] CTA Neck W Wo Contrast (02/07/2018 2:12 PM CDT) Specimen Narrative Performed At EXAMINATION:CT ANGIOGRAM NECK W WO CONTRAST [facility] CLINICAL HISTORY:ataxia COMPARISON:None. TECHNIQUE: Neck CTA with [...] No significant carotid or vertebral artery stenosis. [facility]-[id number] Procedure Note Interface, Radiology Results Incoming - [...] No significant carotid or vertebral artery stenosis. [facility]-[id number] Performing Organization Address City/State/Zipcode Phone Number [facility] [address] [place] [address] Blood culture, aerobic & anaerobic (02/07/2018 11:15 AM CDT)Only the most recent of2 resultswithin the time period is included. Blood culture No growth after 5 days of incubation. [facility] DEPARTMENT OF isolate Comment: PATHOLOGY AND Specimen Information GENOMIC MEDICINE Specimen Source: Blood Specimen Site: Hand, left Specimen Blood - Hand, left Performing Organization Address [facility] Mex[facility]ocomn Phone Number [facility] DEPARTMENT OF PATHOLOGY AND [address] [place] [address] GENOMIC MEDICINE ECG ED Preliminary Interpretation - NOT AN ORDER (02/07/2018 10:49 AM CDT) Narrative Performed At Derrek Mcgee DO 02/07/20184:02 PM ECG ED Preliminary Interpretation - Not an Order Performed by: DERREK MCGEE Authorized by: DERREK MCGEE ECG reviewed by ED Physician in the absence of a electrical maintenance engineer: yes Interpretation: Interpretation: abnormal Rate: ECG rate:59 ECG rate assessment: bradycardic Rhythm: Rhythm: sinus bradycardia QRS: QRS axis:Normal QRS intervals:Normal Conduction: Conduction: abnormal Abnormal conduction: complete RBBB ST segments: ST segments:Normal T waves: T waves: normal Beta hydroxybutyrate (02/07/2018 10:30 AM CDT) Beta hydroxybutyrate 0.14 0.02 - 0.27 [facility] DEPARTMENT OF mmol/L PATHOLOGY AND GENOMIC MEDICINE Specimen Serum Performing Organization Address [facility] Phone Number [facility] DEPARTMENT OF PATHOLOGY AND [address] [place] [address] GENOMIC MEDICINE after 10/03/2017 Insurance Payer Benefit Plan / Subscriber ID Effective Dates Phone Address Type Group PENDING PENDING xxxxxxxxx 2018-Prese Medicaid MEDICAID DISABILITY nt MEDICAID COVERAGE ([address] [place] [id number] Advance Directives Patient has advance care planning documents, and code status on file. For more information, please contact:Lefty Johnson[address] [place] [address] Code Status Date Activated Date Inactivated Comments [...]
[2018-10-04] MEDS ORDERED: FLUORESCEIN SODIUM 1 MG/WRAP ONE (13:38)
[2018-10-04] MEDS ORDERED: TETRACAINE HCL 0.5% 4ML OPTH ONE (13:38)
--- NOTE | 2018-10-04 13:42 | ER ---
Nurse's Notes [facility] Name: Wero Kwong Sr Age: 53 yrs Sex: Male : 1965 Arrival Date: 10/04/2018 Time: 12:56 Bed 6 Private MD: Diagnosis: Conjunctival hemorrhage, left eye Presentation: 10/04 13:14 Presenting complaint: Left eye pain swelling upon waking today. Transition of care: hb patient was not received from another setting of care. Onset of symptoms was October 04, 2018. Risk Assessment: Do you want to hurt yourself or someone else? Patient reports no desire to harm self or others. Care prior to arrival: None. 13:14 Method Of Arrival: Ambulatory hb 13:14 Acuity: MARIA DEL ROSARIO 2 hb 13:35 Initial Sepsis Screen: Does the patient meet any 2 criteria? No. Patient's initial la1 sepsis screen is negative. Does the patient have a suspected source of infection? No. Patient's initial sepsis screen is negative. Triage Assessment: 14:03 General: Behavior is calm, cooperative. la1 Historical: - Allergies: 13:16 Codeine; hb 13:16 Morphine; hb - PMHx: 13:16 CAD; High Cholesterol; Diabetes - NIDDM; CVA; Hypertension; Myocardial infarction; hb neuropathy; Seizures; - Immunization history:: Adult Immunizations up to date. - Social history:: Smoking status: . - Ebola Screening: : No symptoms or risks identified at this time. - Family history:: not pertinent. - Hospitalizations: : No recent hospitalization is reported. Screenin:35 Abuse screen: Denies threats or abuse. Nutritional screening: No deficits noted. la1 Tuberculosis screening: No symptoms or risk factors identified. Fall Risk None identified. Assessment: 13:32 General: Appears in no apparent distress. distressed. Pain: Complains of pain in left la1 eye. Neuro: Level of Consciousness is awake, alert, obeys commands, Oriented to person, place, time, situation. Cardiovascular: Capillary refill is > 3 seconds Patient's skin is warm and dry. Respiratory: Airway is patent Respiratory effort is even, unlabored, Respiratory pattern is regular, symmetrical. EENT: Sclera/Cornea sclera with blood present in medial and lateral areas, visual field intact, PERRLA. Pt states no vision loss. Vital Signs: 13:15 BP 147 / 76; Pulse 90; Resp 16; Temp 97.8; Pulse Ox 100% on R/A; Weight 99.79 kg; hb Height 5 ft. 7 in. (170.18 cm); Pain 10/10; 13:15 Body Mass Index 34.46 (99.79 kg, 170.18 cm) hb ED Course: 12:56 Patient arrived in ED. mr 13:15 Triage completed. hb 13:15 Arm band placed on. hb 13:17 Vaibhav Medeiros RN is Primary Nurse. la1 13:20 Osito Rehman MD is Attending Physician. rn 13:35 Bed in low position. Call light in reach. la1 13:41 Zandra Bowen MD is Referral Physician. rn 14:03 No provider procedures requiring assistance completed. Patient did not have IV access la1 during this emergency room visit. Administered Medications: No medications were administered Outcome: 13:41 Discharge ordered by MD. rn 14:03 Discharged to home ambulatory. la1 14:03 Condition: stable 14:03 Discharge instructions given to patient, family, Instructed on discharge instructions, follow up and referral plans. Demonstrated understanding of instructions, follow-up care. 14:05 Discharge instructions given to Instructed on medication usage, Prescriptions given X 1.la1 14:06 Patient left the ED. la1 Signatures: Tiffany Lopez Osito Rehman MD MD rn Attema, Lee, RN RN la1 Julia Child RN RN hb
--- NOTE | 2018-10-04 13:43 | EDPHYS ---
Physician Documentation [facility] Name: Wero Kwong Sr Age: 53 yrs Sex: Male : 1965 Arrival Date: 10/04/2018 Time: 12:56 Bed 6 Private MD: ED Physician Osito Rehman HPI: 10/04 13:35 This 53 yrs old Male presents to ER via Ambulatory with complaints of Eye rn Problem. 13:35 The patient is experiencing redness, The patient sustained Unknown. to the left eye, rn caused by an unknown mechanism. Onset: The symptoms/episode began/occurred this morning. Duration: the symptoms are continuous. Aggravated by nothing. Alleviated by nothing. Severity of symptoms: At their worst the symptoms were moderate in the emergency department the symptoms are unchanged. The patient has experienced similar episodes in the past. REports woke up with left eye red, mild pain, no change in vision or vision loss, no known trauma, went to bed fine. Reports since his last stroke has violent coughing spells and throws up, also tends to sleep on his fist. No splash from chemical, not doing anything that would cause penetrating eye injury. Is on blood thinners for CVA and CAD. Has had conjunctival hemorrhage before, but never this bad. . Historical: - Allergies: 13:16 Codeine; hb 13:16 Morphine; hb - PMHx: 13:16 CAD; High Cholesterol; Diabetes - NIDDM; CVA; Hypertension; Myocardial infarction; hb neuropathy; Seizures; - Immunization history:: Adult Immunizations up to date. - Social history:: Smoking status: . - Ebola Screening: : No symptoms or risks identified at this time. - Family history:: not pertinent. - Hospitalizations: : No recent hospitalization is reported. ROS: 13:35 Constitutional: Negative for fever, chills, and weight loss, Eyes: + left eye redness rn and swelling ENT: Negative for injury, pain, and discharge, Neck: Negative for injury, pain, and swelling, Neuro: Negative for headache, weakness, numbness, tingling, and seizure. Exam: 13:35 Visual Acuity: Visual acuity is within normal limits. rn 13:35 Constitutional: This is a well developed, well nourished patient who is awake, alert, and in no acute distress. Head/Face: Normocephalic, atraumatic. Eyes: PERRL, no corneal defects or uptake of fluorescein, negative for hyphema, negative for cells in anterior chamber, no pain with EOM, + scleral swelling and evidence of subconjunctival hemorrhage, swelling and redness stop along border of cornea. Vital Signs: 13:15 BP 147 / 76; Pulse 90; Resp 16; Temp 97.8; Pulse Ox 100% on R/A; Weight 99.79 kg; hb Height 5 ft. 7 in. (170.18 cm); Pain 10/10; 13:15 Body Mass Index 34.46 (99.79 kg, 170.18 cm) hb MDM: 13:20 Patient medically screened. rn 13:35 Differential diagnosis: subconjunctival hemorrhage, likely made worse with blood rn thinners. Either resulting from coughing/vomiting or sleeping on fist. No known trauma otherwise or splash, normal vision. Will dc home with return precautions, ophtho f/u tomorrow, and abx drops given extensive medical problems, diabetes, and unclear etiology. Data reviewed: vital signs, nurses notes, and as a result, I will discharge patient. Counseling: I had a detailed discussion with the patient and/or guardian regarding: the historical points, exam findings, and any diagnostic results supporting the discharge/admit diagnosis, the need for outpatient follow up, to return to the emergency department if symptoms worsen or persist or if there are any questions or concerns that arise at home. Special discussion: I discussed with the patient/guardian in detail that at this point there is no indication for admission to the hospital. It is understood, however, that if the symptoms persist or worsen the patient needs to return immediately for re-evaluation. Based on the history and exam findings, there is no indication for further emergent testing or inpatient evaluation. I discussed with the patient/guardian the need to see the opthamologist for further evaluation of the symptoms. Administered Medications: No medications were administered Disposition: 10/04/18 13:41 Discharged to Home. Impression: Conjunctival hemorrhage, left eye. - Condition is Stable. - Discharge Instructions: Subconjunctival Hemorrhage. - Prescriptions for Vigamox 0.5 % Ophthalmic Drops - instill 1 drop by OPHTHALMIC route every 8 hours for 7 days; 5 milliliter. - Medication Reconciliation Form, Thank You Letter, Antibiotic Education, Prescription Opioid Use form. - Follow up: Zandra Bowen MD; When: Tomorrow; Reason: Recheck today's complaints, Re-evaluation by your physician. - Problem is new. - Symptoms are unchanged. Signatures: Osito Rehman MD MD rn Vaibhav Medeiros RN RN la1 Julia Child RN RN Corrections: (The following items were deleted from the chart) 14:06 13:41 10/04/2018 13:41 Discharged to Home. Impression: Conjunctival hemorrhage, left la1 eye. Condition is Stable. Forms are Medication Reconciliation Form, Thank You Letter, Antibiotic Education, Prescription Opioid Use. Follow up: Zandra Bowen; When: Tomorrow; Reason: Recheck today's complaints, Re-evaluation by your physician. Problem is new. Symptoms are unchanged. rn
== END 2018-10-04 14:06 | disposition home or self-care (01) ==
LOC: ER 12:52
DX: H11.32 Conjunctival hemorrhage, left eye (principal); I10 Essential (primary) hypertension; Z86.73 Personal history of transient ischemic attack (TIA), and cerebral infarction without residual deficits; Z88.5 Allergy status to narcotic agent
CPT/HCPCS: 99282

== ENCOUNTER 2019-01-03 05:57 | Inpatient (IN) | payer SELFPAY ==
--- OUTSIDE RECORDS SUMMARY | 2019-01-03 06:01 | XMS REPORT | Clinical Summary ---
:1965 Author Organization [facility] Address [address] [place] [address] Care Team Providers Name Role Phone Asked, No Pcp Primary Care Provider Unavailable Allergies Active Allergy Reactions Severity Noted Date Comments Codeine Hives High 12/01/2016 Hydrocodone-Acetaminophen Hives, Itching 06/25/2013 Morphine Hives High 07/11/2017 Medications Medication Sig Dispensed Refills Start End Date Status Date gabapentin Take 1,800 mg 0 Active (NEURONTIN) 300 mg by mouth every capsule morning. atenolol (TENORMIN) Take 50 mg by 0 Active 50 MG tablet mouth daily. citalopram (CeleXA) Take 20 mg by 0 Active 20 MG tablet mouth daily. lisinopril Take 20 mg by 0 Active (PRINIVIL,ZESTRIL) mouth daily. 20 mg tablet clopidogrel Take 75 mg by 0 Active (PLAVIX) 75 mg mouth daily. tablet gabapentin Take 1,200 mg 0 Active (NEURONTIN) 300 mg by mouth every capsule evening. ibuprofen Take 400 mg by 0 Active (ADVIL,MOTRIN) 200 mouth every 6 MG tablet (six) hours as needed for mild pain. insulin 70/30 NPH Inject 80 20 mL 2 Active and regular human units twice a 8 (NovoLIN 70/30 day with food U-100 Insulin) 100 unit/mL (70-30) injection insulin Inject twice a 100 each 2 Active syringe-needle day 8 U-100 (BD INSULIN SYRINGE ULTRA-FINE) 1 mL 31 gauge x 5/16 syringe aspirin 325 MG Take 325 mg by 0 Active tablet mouth daily. simvastatin (ZOCOR) Take 40 mg by 0 Active 80 MG tablet mouth nightly. 6 traMADol (ULTRAM) Take 50 mg by 0 Active 50 mg tablet mouth every 6 7 (six) hours as needed. atenolol (TENORMIN) Take 50 mg by 0 Active 50 MG tablet mouth daily. 7 citalopram (CeleXA) Take 20 mg by 0 Active 20 MG tablet mouth daily. 7 ergocalciferol Take 1 capsule 4 capsule 11 04/04/20 Active (VITAMIN D2) 50,000 (50,000 Units 8 19 unit capsule total) by mouth once a week. metFORMIN Take 500 mg by 0 02/08/20 Discontinued (GLUCOPHAGE) 500 mg mouth 2 (two) 18 (Med List tablet times a day Cleanup) with meals. simvastatin (ZOCOR) Take 40 mg by 0 02/17/20 Discontinued 40 MG tablet mouth nightly. 18 (Stop Taking at Discharge) glyburide-metformin Take 1 tablet 0 02/08/20 Discontinued (GLUCOVANCE) 5-500 by mouth 2 18 mg per tablet (two) times a day with meals. atorvastatin Take 1 tablet 30 tablet 2 03/15/20 (LIPITOR) 80 MG (80 mg total) 8 18 tablet by mouth nightly for 30 days. insulin lispro Inject 35 10 mL 02/17/20 Discontinued (HumaLOG) 100 Units under 8 18 (Stop Taking at unit/mL injection the skin daily Discharge) before dinner for 30 days. insulin lispro Inject 35 10 mL 02/17/20 Discontinued (HumaLOG) 100 Units under 8 18 (Stop Taking at unit/mL injection the skin daily Discharge) with breakfast for 30 days. insulin lispro Inject 35 10 mL 02/17/20 Discontinued (HumaLOG) 100 Units under 8 18 (Stop Taking at unit/mL injection the skin daily Discharge) before lunch for 30 days. insulin NPH Inject 50 10 mL 02/17/20 Discontinued (HumuLIN-N) 100 Units under 8 18 (Stop Taking at unit/mL injection the skin daily Discharge) for 30 days. insulin NPH Inject 55 10 mL 02/17/20 Discontinued (HumuLIN-N) 100 Units under 8 18 (Stop Taking at unit/mL injection the skin Discharge) nightly for 30 days. aspirin 81 mg Chew 1 tablet 100 tablet 3 03/16/20 chewable tablet (81 mg total) 8 18 daily for 30 days. clopidogrel Take 1 tablet 30 tablet 6 03/16/20 (PLAVIX) 75 mg (75 mg total) 8 18 tablet by mouth daily for 30 days. ergocalciferol Take 1 capsule 4 capsule 0 03/31/20 Discontinued (VITAMIN D2) 50,000 (50,000 Units 8 18 (Stop Taking at unit capsule total) by Discharge) mouth once a week for 30 days. furosemide (LASIX) Take 1 tablet 60 tablet 1 03/18/20 40 mg tablet (40 mg total) 8 18 by mouth 2 (two) times a day for 30 days. clopidogrel Take 75 mg by 0 03/21/20 Discontinued (PLAVIX) 75 mg mouth daily. 7 18 tablet furosemide (LASIX) Take 1 tablet 60 tablet 2 04/30/19 40 mg tablet (40 mg total) 8 19 by mouth 2 (two) times a day for 30 days. 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 Chest pain 12/01/2016 Essential hypertension 12/01/2016 Coronary artery disease involving robinson coronary artery 12/01/2016 Cirrhosis 12/01/2016 Hypertriglyceridemia 12/01/2016 Depression 12/01/2016 Encounters Date Type Specialty Care Team Description 03/20/2018 - Hospital Encounter General Internal [facility], Acute renal failure, unspecified acute renal failure type (HCC) (Primary Dx); 03/31/2018 Medicine [facility], Cirrhosis of liver with ascites, unspecified [...] (HCC) 02/07/2018 - Hospital Encounter Neurology Rehrer, Derrek Occlusion of right posterior communicating artery (Primary Dx); 02/16/2018 DO Kevin Armenta's palsy; Tomi, Ataxia; Milton O. 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 (HCC) after 01/02/2018 Family History Medical History Relation Name Comments [...] Vital Signs Vital Sign Reading Time Taken Comments Blood Pressure 165/77 03/31/2018 8:31 AM [employer] Pulse 66 03/31/2018 8:31 AM [employer] Temperature 36.6 C (97.9 F) 03/31/2018 8:31 AM [employer] Respiratory Rate 18 03/31/2018 8:31 AM [employer] Oxygen Saturation 95% 03/31/2018 8:31 AM [employer] Inhaled Oxygen Concentration - - Weight 96.6 kg (212 lb 14.4 oz) 03/31/2018 3:57 AM [employer] Height 170.2 cm (5' 7") 03/20/2018 4:56 PM [employer] Body Mass Index 33.34 03/20/2018 4:56 PM [employer] Plan of Treatment Health Maintenance Due Date Last Done Comments DIABETIC RETINAL EYE EXAM 1965 DIABETIC FOOT EXAM 07/30/1977 URINE MICROALBUMIN 07/30/1977 COLONOSCOPY SCREENING 07/30/2017 SHINGLES VACCINES (#1) 07/30/2017 INFLUENZA VACCINE 11/26/2018 Implants Implanted Type Area Cloth Neutralizer Device Shelf Model / Identifier Expiration Serial / Date Lot Orthopedic Orthopedic Surgical Surgical Implants Implants Procedures Procedure Name Priority Date/Time Associated Comments Diagnosis POC GLUCOSE Routine 03/31/2018 8:28 Results for this AM [employer] procedure are in the results section. ESTIMATED GFR Routine 03/31/2018 3:19 Results for this AM [employer] procedure are in the results section. BASIC METABOLIC PANEL Routine 03/31/2018 3:19 Results for this AM [employer] procedure are in the results section. POC GLUCOSE Routine 03/30/2018 11:23 Results for this PM [employer] procedure are in the results section. POC GLUCOSE Routine 03/30/2018 8:25 Results for this PM [employer] procedure are in the results section. POC GLUCOSE Routine 03/30/2018 5:09 Results for this PM [employer] procedure are in the results section. POC GLUCOSE Routine 03/30/2018 12:17 Results for this PM [employer] procedure are in the results section. POC GLUCOSE Routine 03/30/2018 8:07 Results for this AM [employer] procedure are in the results section. ESTIMATED GFR Routine 03/30/2018 2:29 Results for this AM [employer] procedure are in the results section. BASIC METABOLIC PANEL Routine 03/30/2018 2:29 Results for this AM [employer] procedure are in the results section. POC GLUCOSE Routine 03/30/2018 1:44 Results for this AM [employer] procedure are in the results section. POC GLUCOSE Routine 03/29/2018 9:13 Results for this PM [employer] procedure are in the results section. POC GLUCOSE Routine 03/29/2018 7:27 Results for this PM [employer] procedure are in the results section. POC GLUCOSE Routine 03/29/2018 5:21 Results for this PM [employer] procedure are in the results section. POC GLUCOSE Routine 03/29/2018 12:17 Results for this PM [employer] procedure are in the results section. POC GLUCOSE Routine 03/29/2018 7:41 Results for this AM [employer] procedure are in the results section. POC GLUCOSE Routine 03/28/2018 9:14 Results for this PM [employer] procedure are in the results section. POC GLUCOSE Routine 03/28/2018 5:18 Results for this PM [employer] procedure are in the results section. POC GLUCOSE Routine 03/28/2018 11:32 Results for this AM [employer] procedure are in the results section. POC GLUCOSE Routine 03/28/2018 8:19 Results for this AM [employer] procedure are in the results section. POC GLUCOSE Routine 03/28/2018 7:17 Results for this AM [employer] procedure are in the results section. ESTIMATED GFR Routine 03/28/2018 4:00 Results for this AM [employer] procedure are in the results section. BASIC METABOLIC PANEL Routine 03/28/2018 4:00 Results for this AM [employer] procedure are in the results section. POC GLUCOSE Routine 03/27/2018 8:58 Results for this PM [employer] procedure are in the results section. POC GLUCOSE Routine 03/27/2018 4:55 Results for this PM [employer] procedure are in the results section. POC GLUCOSE Routine 03/27/2018 11:54 Results for this AM [employer] procedure are in the results section. POC GLUCOSE Routine 03/27/2018 7:48 Results for this AM [employer] procedure are in the results section. ESTIMATED GFR Routine 03/27/2018 4:00 Results for this AM [employer] procedure are in the results section. BASIC METABOLIC PANEL Routine 03/27/2018 4:00 Results for this AM [employer] procedure are in the results section. POC GLUCOSE Routine 03/27/2018 12:19 Results for this AM [employer] procedure are in the results section. POC GLUCOSE Routine 03/26/2018 8:44 Results for this PM [employer] procedure are in the results section. POC GLUCOSE Routine 03/26/2018 5:04 Results for this PM [employer] procedure are in the results section. ALBUMIN LEVEL Routine 03/26/2018 3:50 Results for this PM [employer] procedure are in the results section. US DUPLEX VENOUS LOWER Routine 03/26/2018 2:24 Results for this EXTREMITY BILATERAL PM [employer] procedure are in the results section. POC GLUCOSE Routine 03/26/2018 12:22 Results for this PM [employer] procedure are in the results section. POC GLUCOSE Routine 03/26/2018 8:09 Results for this AM [employer] procedure are in the results section. ESTIMATED GFR Routine 03/26/2018 4:00 Results for this AM [employer] procedure are in the results section. BASIC METABOLIC PANEL Routine 03/26/2018 4:00 Results for this AM [employer] procedure are in the results section. POC GLUCOSE Routine 03/25/2018 8:43 Results for this PM [employer] procedure are in the results section. POC GLUCOSE Routine 03/25/2018 5:33 Results for this PM [employer] procedure are in the results section. POC GLUCOSE Routine 03/25/2018 12:15 Results for this PM [employer] procedure are in the results section. POC GLUCOSE Routine 03/25/2018 7:41 Results for this AM [employer] procedure are in the results section. ESTIMATED GFR Routine 03/25/2018 4:00 Results for this AM [employer] procedure are in the results section. BASIC METABOLIC PANEL Routine 03/25/2018 4:00 Results for this AM [employer] procedure are in the results section. B NATRIURETIC PEPTIDE Routine 03/25/2018 3:30 Results for this AM [employer] procedure are in the results section. POC GLUCOSE Routine 03/24/2018 8:51 Results for this PM [employer] procedure are in the results section. POC GLUCOSE Routine 03/24/2018 5:43 Results for this PM [employer] procedure are in the results section. POC GLUCOSE Routine 03/24/2018 12:01 Results for this PM [employer] procedure are in the results section. POC GLUCOSE Routine 03/24/2018 7:32 Results for this AM [employer] procedure are in the results section. ESTIMATED GFR Routine 03/24/2018 4:00 Results for this AM [employer] procedure are in the results section. BASIC METABOLIC PANEL Routine 03/24/2018 4:00 Results for this AM [employer] procedure are in the results section. HC COMPLETE BLD COUNT Routine 03/24/2018 3:30 Results for this W/AUTO DIFF AM [employer] procedure are in the results section. POC GLUCOSE Routine 03/23/2018 8:25 Results for this PM [employer] procedure are in the results section. POC GLUCOSE Routine 03/23/2018 5:27 Results for this PM [employer] procedure are in the results section. POC GLUCOSE Routine 03/23/2018 12:29 Results for this PM [employer] procedure are in the results section. POC GLUCOSE Routine 03/23/2018 8:17 Results for this AM [employer] procedure are in the results section. HC COMPLETE BLD COUNT Routine 03/23/2018 4:30 Results for this W/AUTO DIFF AM [employer] procedure are in the results section. ESTIMATED GFR Routine 03/23/2018 4:00 Results for this AM [employer] procedure are in the results section. BASIC METABOLIC PANEL Routine 03/23/2018 4:00 Results for this AM [employer] procedure are in the results section. POC GLUCOSE Routine 03/22/2018 5:24 Results for this PM [employer] procedure are in the results section. POC GLUCOSE Routine 03/22/2018 12:23 Results for this PM [employer] procedure are in the results section. POC GLUCOSE Routine 03/22/2018 8:15 Results for this AM [employer] procedure are in the results section. ESTIMATED GFR Routine 03/22/2018 5:50 Results for this AM [employer] procedure are in the results section. HC COMPLETE BLD COUNT Routine 03/22/2018 4:20 Results for this W/AUTO DIFF AM [employer] procedure are in the results section. ESTIMATED GFR Routine 03/22/2018 4:00 Results for this AM [employer] procedure are in the results section. SERUM ELECTROPHORESIS Routine 03/22/2018 4:00 Results for this AM [employer] procedure are in the results section. HEPATITIS C ANTIBODY Routine 03/22/2018 4:00 Results for this AM [employer] procedure are in the results section. HEPATITIS B SURFACE Routine 03/22/2018 4:00 Results for this ANTIGEN AM [employer] procedure are in the results section. HEPATITIS B SURFACE Routine 03/22/2018 4:00 Results for this ANTIBODY AM [employer] procedure are in the results section. HEPATITIS B CORE Routine 03/22/2018 4:00 Results for this ANTIBODY TOTAL AM [employer] procedure are in the results section. C4 COMPLEMENT COMPONENT Routine 03/22/2018 4:00 Results for this AM [employer] procedure are in the results section. C3 COMPLEMENT COMPONENT Routine 03/22/2018 4:00 Results for this AM [employer] procedure are in the results section. RHEUMATOID FACTOR Routine 03/22/2018 4:00 Results for this AM [employer] procedure are in the results section. ANNE Routine 03/22/2018 4:00 Results for this AM [employer] procedure are in the results section. BASIC METABOLIC PANEL Routine 03/22/2018 4:00 Results for this AM [employer] procedure are in the results section. POC GLUCOSE Routine 03/21/2018 9:39 Results for this PM [employer] procedure are in the results section. CREATININE CLEARANCE, Routine 03/21/2018 5:30 Results for this URINE, 24 HOUR PM [employer] procedure are in the results section. URINE PROTEIN Routine 03/21/2018 5:30 Results for this ELECTROPHORESIS, 24 HOUR PM [employer] procedure are in the results section. POC GLUCOSE Routine 03/21/2018 5:21 Results for this PM [employer] procedure are in the results section. ESTIMATED GFR Routine 03/21/2018 3:50 Results for this PM [employer] procedure are in the results section. CREATININE CLEARANCE, Routine 03/21/2018 3:50 Results for this URINE, 24 HOUR PM [employer] procedure are in the results section. POC GLUCOSE Routine 03/21/2018 12:08 Results for this PM [employer] procedure are in the results section. US RENAL STAT 03/21/2018 11:18 Results for this AM [employer] procedure are in the results section. POC GLUCOSE Routine 03/21/2018 8:20 Results for this AM [employer] procedure are in the results section. URINALYSIS SCREEN AND Routine 03/21/2018 6:47 Results for this MICROSCOPY, WITH REFLEX AM [employer] procedure are in TO CULTURE the results section. URINE CULTURE Routine 03/21/2018 6:47 Results for this AM [employer] procedure are in the results section. ESTIMATED GFR Routine 03/21/2018 4:17 Results for this AM [employer] procedure are in the results section. T4, FREE Routine 03/21/2018 4:17 Results for this AM [employer] procedure are in the results section. THYROID STIMULATING Routine 03/21/2018 4:17 Results for this HORMONE AM [employer] procedure are in the results section. LIPID PANEL Routine 03/21/2018 4:17 Results for this AM [employer] procedure are in the results section. BASIC METABOLIC PANEL Routine 03/21/2018 4:17 Results for this AM [employer] procedure are in the results section. HC COMPLETE BLD COUNT Routine 03/21/2018 4:17 Results for this W/AUTO DIFF AM [employer] procedure are in the results section. HEMOGLOBIN A1C Routine 03/20/2018 11:58 Results for this PM [employer] procedure are in the results section. TROPONIN Timed 03/20/2018 11:58 Results for this PM [employer] procedure are in the results section. POC GLUCOSE Routine 03/20/2018 11:48 Results for this PM [employer] procedure are in the results section. XR CHEST 1 VW PORTABLE STAT 03/20/2018 11:33 Results for this PM [employer] procedure are in the results section. CT HEAD WO CONTRAST STAT 03/20/2018 11:16 Results for this PM [employer] procedure are in the results section. ESTIMATED GFR STAT 03/20/2018 5:28 Results for this PM [employer] procedure are in the results section. B NATRIURETIC PEPTIDE STAT 03/20/2018 5:28 Results for this PM [employer] procedure are in the results section. TROPONIN STAT 03/20/2018 5:28 Results for this PM [employer] procedure are in the results section. COMPREHENSIVE METABOLIC STAT 03/20/2018 5:28 Results for this PANEL PM [employer] procedure are in the results section. PROTHROMBIN TIME WITH STAT 03/20/2018 5:28 Results for this INR PM [employer] procedure are in the results section. PARTIAL THROMBOPLASTIN STAT 03/20/2018 5:28 Results for this TIME (PTT) PM [employer] procedure are in the results section. HC COMPLETE BLD COUNT STAT 03/20/2018 5:28 Results for this W/AUTO DIFF PM [employer] procedure are in the results section. ECG 12-LEAD STAT 03/20/2018 5:24 Results for this PM [employer] procedure are in the results section. POC [...] are in SPECTRAL COLOR DOPPLER the results (39602) section. ESTIMATED GFR Routine 02/09/2018 4:14 Results [...] procedure are in the results section. after 01/02/2018 Results POC glucose (03/31/2018 8:28 AM [employer])Only the most recent of92 resultswithin the time period is included. [facility] POC glucose 341 (H) 65 - 99 mg/dL [facility] Comment: [facility] Notified RN Meter ID: [id number] Strip Polisher: Cem Colon Specimen Performing Organization Address City/State/Zipcode Phone Number [facility] DEPARTMENT OF PATHOLOGY AND [address] [place] [address] GENOMIC MEDICINE [address] [address] Estimated GFR (03/31/2018 3:19 AM [employer])Only the most recent of19 resultswithin the time period is included. [facility] Estimated GFR 40 (A) mL/min/1.73 [facility] Comment: m2 [facility]PITAL CatergoryUnitsInterpretation G1 >=90 Normal or high G2 60-89Mildly decreased [id number] to moderately decreased [id number] to severely decreased G4 15-29Severely decreased G5 <15Kidney failure The eGFR was calculated using the Chronic Kidney Disease Epidemiology Collaboration (CKD-EPI) equation. Interpretation is based on recommendations of the National Kidney Foundation-Kidney Disease Outcomes Quality Initiative (NKF-KDOQI) published in 2014. Specimen Plasma specimen Performing Organization Address City/[facility]/Zipcode Phone Number [facility] DEPARTMENT OF PATHOLOGY AND [address] [place] [phone] Basic metabolic panel (03/31/2018 3:19 AM [employer])Only the most recent of15 resultswithin the time period is included. Sodium 137 135 - 148 mEq/L [facility] Potassium 4.3 3.5 - 5.0 mEq/L [facility] Chloride 96 (L) 98 - 112 mEq/L [facility] CO2 25 24 - 31 mEq/L [facility] Anion gap 16@ANIO (H) 7 - 15 mEq/L [facility] BUN 61 (H) 6 - 20 mg/dL [facility] Creatinine 1.91 (H) 0.70 - 1.20 mg/dL [facility] Glucose 336 (H) 65 - 99 mg/dL [facility] Calcium 9.7 8.3 - 10.2 mg/dL [facility] Specimen Plasma specimen Performing Organization Address City/[facility] Phone Number [facility] DEPARTMENT OF PATHOLOGY AND [address] [place] [phone] [address] Albumin level (03/26/2018 3:50 PM [employer]) Albumin 3.3 (L) 3.5 - 5.0 g/dL [facility] Specimen Plasma specimen Performing Organization Address City/[facility] Phone Number [facility] DEPARTMENT OF PATHOLOGY AND [address] [place] [phone] [address] Us duplex venous lower extremity (03/26/2018 2:24 PM [employer]) Specimen Narrative Performed At [facility] Vascular Ultrasound Laboratory Lower Extremity Venous Report [id number] [address] Pat.Name:PAOLA KWONG Pat.ID:[id number] .Date: 03/26/2018Refer.MD:USHA OQUENDO MD Exam Time: 1:48:00 PMStudy Type:LE Venous Height:67inWeight: 227lb BSA: 2.14 m2 DOBAge:1965,52Y Sex: MALESonogrphr: Florence Eli RVT Pat. Stat.:Inpatient Room:[address] TapeVol: Stephanie, CPT - 4: 06266 Echo Event ID:[id number] Order ID:[id number] Reason for Study:LE swelling and pain, evaluation [...] Radiology Results In - 03/26/2018 8:54 PM [facility] Vascular Ultrasound Laboratory Lower Extremity Venous Report [id number] [address] Pat.Name: PAOLA KWONG Pat.ID: [id number] St.Date: 03/26/2018 Refer.MD: USHA OQUENDO MD Exam Time: 1:48:00 PM Study Type:LE Venous Height: 67in Weight: 227lb BSA: 2.14 m2 Age: 6 1965,52Y Sex: MALE Sonogrphr: Florence Eli RVT Pat. Stat.:Inpatient Room: [address] Vol: JJ, CPT - 4: 34103 Echo Event ID:[id number] Order ID: [id number] Reason for Study:LE swelling and pain, evaluation [...] Valentín Vallejo MD, RPVI Performing Organization Address City/[facility]/Zipcode Phone Number [facility] [address] [place] [address] B natriuretic peptide (03/25/2018 3:30 AM [employer] HERITAGE ARCHITECT)Only the most recent of3 resultswithin the time period is included. Pathologist [facility] BNP 194 (H) 0 - 100 pg/mL [facility] Specimen Blood Performing Organization Address City/[facility] Centercode Phone Number [facility] DEPARTMENT OF PATHOLOGY AND [address] [place] [address] [address] [facility] [address] [place] [address] CBC with platelet and differential (03/24/2018 3:30 AM [employer] HER[employer] ARCHITECT)Only the most recent of9 resultswithin the time period is included. WBC 4.40 (L) 4.50 - 11.00 [facility] k/uL HOSPITAL RBC 3.30 (L) 4.40 - 6.00 [facility] m/[facility] HGB 10.2 (L) 14.0 - 18.0 [facility] g/dL [facility] HCT 30.2 (L) 41.0 - 51.0 % [facility] MCV 91.5 82.0 - 100.0 [facility] MCH 30.9 27.0 - 34.[address] [facility] MCHC 33.8 31.0 - 37.0 [facility] g/dL [facility] RDW - SD 44.3 37.0 - 55.[address] [facility] MPV 13.2 8.8 - 13.[address] [facility] Platelet count 138 (L) 150 - 400 k/uL [facility] Nucleated RBC 0.00 /[address] [facility] Neutrophils 50.1 39.0 - 69.0 % [facility] Lymphocytes 33.9 25.0 - 45.0 % [facility] Monocytes 8.9 0.0 - 10.0 % [facility] Eosinophils 5.9 (H) 0.0 - 5.0 % [facility] Basophils 0.7 0.0 - 1.0 % [facility] Immature granulocytes 0.5Comment: 0.0 - 1.0 % [facility] "Immature HOSPITAL granulocytes" (promyelocytes , myelocytes, metamyelocytes ) Specimen Blood Performing Organization Address City/[facility] Centercode Phone Number [facility] DEPARTMENT OF PATHOLOGY AND [address] [place] [phone] Hepatitis C antibody (03/22/2018 4:00 AM [employer] HERITAGE ARCHITECT) Hepatitis C Ab Non-reactive Non-reactive [facility] Specimen Blood Performing Organization Address City/[facility] Centercode Phone Number [facility] DEPARTMENT OF PATHOLOGY AND [address] [place] [phone] Hepatitis B core antibody total (03/22/2018 4:00 AM [employer] HERITAGE ARCHITECT) Hepatitis B core Non-reactive Non-reactive [facility] Specimen Blood Performing Organization Address [facility] Phone Number [facility] DEPARTMENT OF PATHOLOGY AND [address] [place] [phone] Hepatitis B surface antibody (03/22/2018 4:00 AM [employer] OR HERITAGE ARCHITECT) Hepatitis B surface Non-reactive Non-reactive [facility] Specimen Blood Performing Organization Address City/[facility] Phone Number [facility] DEPARTMENT OF PATHOLOGY AND [address] [place] [phone] Hepatitis B surface antigen (03/22/2018 4:00 AM [employer] OR HERITAGE ARCHITECT) Hepatitis B surface Non-reactive Non-reactive [facility] Specimen Blood Performing Organization Address City/[facility]ercode Phone Number [facility] DEPARTMENT OF PATHOLOGY AND [address] [place] [address] Rheumatoid factor (03/22/2018 4:00 AM [employer] OR HERITAGE ARCHITECT)Only the most recent of2 resultswithin the time period is included. Pathologist [facility] Rheumatoid factor <10 0 - 13 IU/mL [facility] Specimen Plasma specimen Performing Organization Address City/[facility] Centercode Phone Number [facility] DEPARTMENT OF PATHOLOGY AND [address] [place] [phone] [place] [address] C3 complement component (03/22/2018 4:00 AM [employer] HERIT[employer] ARCHITECT) C3 complement 139 90 - 180 mg/dL [facility] Specimen Plasma specimen Performing Organization Address City/[facility] Centercode Phone Number [facility] DEPARTMENT OF PATHOLOGY AND [address] [place] [phone] [place] [address] C4 complement component (03/22/2018 4:00 AM [employer] OR HERITAGE ARCHITECT) C4 complement 25 10 - 40 mg/dL [facility] Specimen Plasma specimen Performing Organization Address City/[facility] Centercode Phone Number [facility] DEPARTMENT OF PATHOLOGY AND [address] [place] [phone] ANNE (03/22/2018 4:00 AM [employer] OR HERITAGE ARCHITECT) ANNE screen Negative Negative [facility] Specimen Blood Performing Organization Address City/[facility] Centercode Phone Number [facility] DEPARTMENT OF PATHOLOGY AND [address] [place] [phone] [place] [phone] Serum electrophoresis (03/22/2018 4:00 AM [employer] HERITAGE ARCHITECT) Protein 5.9 (L) 6.3 - 8.3 [place] Comment: g/dL [place] 4.6-7.0 g/dL HOSPITAL 1 week 4.4-7.6 g/dL 7 months-1year5.1-7.3 g/dL 1-2 years5.6-7.5 g/dL >3 years6.0-8.0 g/dL 18-150 6.3-8.3 g/dL SPE albumin 3.57 (L) 4.00 - 5.30 [place] g/dL [facility] [place] SPE alpha 1 0.15 0.10 - 0.25 [place] g/dL [facility] [place] SPE alpha 2 0.70 0.58 - 0.84 [place] g/dL [facility] [place] SPE beta 0.94 0.50 - 1.10 [place] g/dL [facility] [place] SPE gamma 0.54 (L) 0.60 - 1.30 [place] g/dL [facility] [place] SPE extended See Comment [place] interpretation Comment: [place] Total protein and albumin are decreased suggesting protein malnutrition. HOSPITAL Gamma globulins are slightly decreased.646 SPE interpretation See [place] CommentComment: [facility]ELA [facility]achoDA[facility] PhD; Mally Phillips MD; Toribio Mcgrath MD, PhD Specimen Serum Performing Organization Address [facility] Phone Number [facility] DEPARTMENT OF PATHOLOGY AND [address] [place] [phone] Urine protein electrophoresis, 24 hour (03/21/2018 5:30 PM [employer] ARCHITECT) Collection start 03-21-18 [facility], urine [facility] [place] Collection start 17:30 [place] time, urine [facility] [place] Collection stop date, 03/22/18 [facility] Collection stop time, 17:30 [facility] Hours of collection [address] [facility] Total volume, urine 2,[address] [facility] Urine protein 103 mg/dL [facility] Urine protein 24 hr 2,421 (H) 0 - 150 [place] excretion mg/24hrs [facility] [place] UPE albumin 81.7 % [facility] UPE globulin 18.3 % [facility] UPE extended See Comment [place] interpretation Comment: [place] An abnormal 24 hour urine protein study with proteinuria of 2421 mg/24 HOSPITAL hours. The proteinuria is in a glomerular pattern.646 UPE interpretation See [place] CommentComment: [facility] PhD; Mally Vasquez MD; Toribio Mcgrath MD, PhD Specimen Urine Performing Organization Address [facility] Phone Number [facility] DEPARTMENT OF PATHOLOGY AND [address] [place], [place] [address] [place] [address] Creatinine clearance, urine, 24 hour (03/21/2018 5:30 PM [employer] HERITAGE ARCHITECT)Only the most recent of2 resultswithin the time period is included. Collection start 03-21-18 [facility], urine [facility] [place] Collection start 17:30 [place] time, urine [facility] [place] Collection stop date, 03/22/18 [facility] Collection stop time, 17:30 [facility] Hours of collection [address] [facility] Total volume, urine 2,[address] [facility] Creatinine 2.74 (H) 0.70 - 1.20 [place] mg/dL [facility] [place] Urine creatinine 78 mg/dL [place] clearance [place] concentration [facility] Urine creatinine 1,833 mg/vol [place] clearance excretion [facility] [place] Creat clearance, 46 mL/min [place] urine 24 hr calc Comment: [place] CREATININE CLEARANCE REFERENCE RANGE: HOSPITAL MALES 85 - 125 ML/MIN/1.73 SQ.METER FEMALES 75 - 115 ML/MIN/1.73 SQ.METER Specimen Urine Performing Organization Address City/[facility] Centercode Phone Number [facility] DEPARTMENT OF PATHOLOGY AND [address] [place] [address] [facility] [address] [place] [address] [place] Renal (03/21/2018 11:18 AM CONSERVATION OR HERITAGE ARCHITECT) Specimen Narrative Performed At EXAMINATION:US RENAL RADI[facility] [...] IMPRESSION: Mild-moderate renal cortical atrophy is present. [id number] Procedure Note Interface, Radiology Results Incoming - 03/21/2018 1:39 PM [employer] HERITAGE ARCHITECT EXAMINATION: US RENAL CLINICAL HISTORY: Renal failure acute (kidney injury) COMPARISON: None. FINDINGS: The kidneys are normal in size and echogenicity. There is no evidence of renal mass, calculi, or hydronephrosis. The right kidney measures 13.3 x 6.5 x 6.7 cm The left kidney measures 12.9 x 6.7 x 5.7 cm The urinary bladder is unremarkable. IMPRESSION: Mild-moderate renal cortical atrophy is present. [facility]-[id number] Performing Organization Address City/[facility] Centercode Phone Number [facility] [address] [place] [address] Urinalysis screen and microscopy, with reflex to culture (03/21/2018 6:47 AM CONSERVATION OR HERITAGE ARCHITECT)Only the most recent of2 resultswithin the time period is included. Specimen site Clean catch [facility] Color, UA Yellow [facility] Appearance, UA Clear [facility] Specific gravity, UA 1.014 1.001 - 1.[address] [facility] pH, UA 5.0 5.0 - 8.[address] [facility] Protein, UA 3+ (A) Negative [facility] Glucose, UA 1+ (A) Negative [facility] Ketones, UA Negative Negative [facility] Bilirubin, UA Negative Negative [facility] Blood, UA Negative Negative [facility] Nitrite, UA Negative Negative [facility] Urobilinogen, UA <2.0 <2.[address] [facility] Leukocyte esterase, Negative Negative [facility] Epithelial cells, UA <1 /HPF [facility] WBC, UA None seen 0 - 1 /HPF [facility] RBC, UA 1 0 - 5 /HPF [facility] Bacteria, UA None seen None seen [facility] Yeast, UA None seen [facility] Yeast with None seen [facility] Hyaline casts, UA >20 (A) /LPF [facility] Specimen Urine Performing Organization Address City/[facility] Centercosc Phone Number [facility] DEPARTMENT OF PATHOLOGY AND [address] [place] [address] Urine culture (03/21/2018 6:47 AM CONSERVATION OR HERITAGE ARCHITECT)Only the most recent of2 resultswithin the time period is included. Urine culture SEE COMMENTComment: [facility] Bacteriuria screen HOSPITAL negative. Specimen Performing Organization Address City/[facility] Phone Number [facility] DEPARTMENT OF PATHOLOGY AND [address] [place] [address] Thyroid stimulating hormone (03/21/2018 4:17 AM CONSERVATION OR HERITAGE ARCHITECT)Only the most recent of3 resultswithin the time period is included. TSH 1.15 0.27 - 4.20 uIU/mL [facility] Specimen Plasma specimen Performing Organization Address City/[facility]ercode Phone Number [facility] DEPARTMENT OF PATHOLOGY AND [address] [place] [address] T4, free (03/21/2018 4:17 AM CONSERVATION OR HERITAGE ARCHITECT)Only the most recent of3 resultswithin the time period is included. T4, free 0.8 (L) 0.9 - 1.7 ng/dL [facility] Specimen Plasma specimen Performing Organization Address City/[facility]/Zipcode Phone Number [facility] DEPARTMENT OF PATHOLOGY AND [address] [place] [address] [address] Lipid panel (03/21/2018 4:17 AM CONSERVATION OR HERITAGE ARCHITECT)Only the most recent of3 resultswithin the time period is included. Cholesterol 165 <200 mg/dL [facility] Triglycerides 347 (H) <150 mg/dL [facility] HDL cholesterol 34 (L) >40 mg/dL [facility] LDL cholesterol 99Comment: Result <100 mg/dL [place] obtained by direct [place] LDL measurement [facility] Lipid panel [facility] interpretation Comment: [place] Total Cholesterol (mg/dL) [facility] <200 Desirable 230-097Hoswczwoag-lrtz >=240High Triglycerides (mg/dL) <150 Normal 667-071Rbsfvdvtus-odtm 200-499High >=500Very high HDL Cholesterol (mg/dL) <40Low (male) <40Low (female) LDL Cholesterol (mg/dL) <100 Optimal 100-129Near or above optimal 309-038Dpkupoacda-wlzq 160-189High >=190Very high Risk Catergories that modify [...] mg/dL) Specimen Plasma specimen Performing Organization Address City/[facility]/Zipcode Phone Number [facility] DEPARTMENT OF PATHOLOGY AND [address] [place] [address] [address] Troponin (03/20/2018 11:58 PM [employer] OR HERITAGE ARCHITECT)Only the most recent of4 resultswithin the time period is included. Troponin <0.30 0.00 - 0.30 [facility] Comment: ng/mL HOSPITAL 0.30 - 1.49 ng/mlMay indicate increased risk of acute coronary syndrome. >=1.5 ng/mlConsistent with acute myocardial infarction. The diagnostic value of a single normal or non-diagnostic result is questionable.Serial samples at 2-6 hour intervals are required to rule out acute myocardial injury. Specimen Plasma specimen Performing Organization Address City/State/Zipcode Phone Number [facility] DEPARTMENT OF PATHOLOGY AND [address] [place] [phone] [place] [phone] Hemoglobin A1c (03/20/2018 11:58 PM CONSERV[employer] OR HERITAGE ARCHITECT)Only the most recent of3 resultswithin the time period is included. Hemoglobin A1C 9.1 (H) 4.0 - 5.6 % [facility] Comment: HOSPITAL HbA1c cutoffs for diagnosing diabetes: 4.0% - 5.6%=normal 5.7% - 6.4%=increased risk for diabetes (prediabetes) >=6.5%=diabetes Goals for glycemic control (ADA 2016) < 7.0%Target for non adults with diabetes. More or less stringent targets may be appropriate for individual patients. <7.5% Target for Children and adolescents with type 1 diabetes. Specimen Blood Performing Organization Address City/[facility]ercode Phone Number [facility] DEPARTMENT OF PATHOLOGY AND [address] [place] [address] [address] XR Chest 1 Vw Portable (03/20/2018 11:33 PM [employer] OR HERITAGE ARCHITECT) Specimen Narrative Performed At EXAMINATION:XR CHEST 1 VW PORTABLE [facility] CLINICAL HISTORY: Shortness of breath COMPARISON:11/27/2013 IMPRESSION: No radiographic evidence for acute cardiopulmonary process. Cardiomediastinal silhouette is within normal limits of size. No focal or confluent airspace consolidation is seen on this single AP plane to suggest acute pneumonia. No sizable pleural effusion. No pneumothorax identified. No acute osseous abnormalities are visualized. [facility]-[id number] Procedure Note Hm Interface, Radiology Results Incoming - 03/20/2018 11:40 PM [employer] OR HERITAGE ARCHITECT EXAMINATION: XR CHEST 1 VW PORTABLE CLINICAL HISTORY: Shortness of breath COMPARISON: 11/27/2013 IMPRESSION: No radiographic evidence for acute cardiopulmonary process. Cardiomediastinal silhouette is within normal limits of size. No focal or confluent airspace consolidation is seen on this single AP plane to suggest acute pneumonia. No sizable pleural effusion. No pneumothorax identified. No acute osseous abnormalities are visualized. [facility]-[id number] Performing Organization Address City/State/Zipcode Phone Number [facility] [address] [place] [address] CT Head Wo Contrast (03/20/2018 11:16 PM [employer] OR HERITAGE ARCHITECT)Only the most recent of2 resultswithin the time period is included. Specimen Narrative Performed At EXAMINATION: CT HEAD WO CONTRAST [facility] CLINICAL HISTORY: Strokefollow up COMPARISON:MRI 02/10/2018. TECHNIQUE: [...] normal. IMPRESSION: No acute intracranial abnormality identified. [facility]-[id number] Procedure Note Hm Interface, Radiology Results Incoming - 03/20/2018 11:23 PM [employer] OR HERITAGE ARCHITECT EXAMINATION: CT HEAD WO CONTRAST CLINICAL HISTORY: [...] normal. IMPRESSION: No acute intracranial abnormality identified. [facility]-[id number] Performing Organization Address [facility] Centercode Phone Number [facility] [address] [place] [address] Partial thromboplastin time, activated (03/20/2018 5:28 PM [employer] OR HERITAGE ARCHITECT)Only the most recent of2 resultswithin the time period is included. Pathologist [facility] PTT 27.5 23.0 - 36.0 [facility] Comment: [facility] PTT therapeutic range for unfractionated heparin is 61.0-112.0 seconds which corresponds to Anti-Xa 0.3-0.7 U/ml. Specimen Blood Performing Organization Address [facility]ercosc Phone Number [facility] DEPARTMENT OF PATHOLOGY AND [address] [place] [address] [address] Prothrombin time with INR (03/20/2018 5:28 PM CON[employer]ATION OR HERITAGE ARCHITECT)Only the most recent of2 resultswithin the time period is included. Pathologist [facility] Prothrombin time 13.2 11.5 - 14.5 [facility] INR 1.0 [place] Comment: [place] [facility] International Normalized Ratio (INR) is a therapeutic HOSPITAL monitoring tool for patients who are stable on oral anticoagulant therapy. An INR of 2.0-3.0 is suggested for deep vein thrombosis/pulmonary embolism. Specimen Blood Performing Organization Address City/[facility]ode Phone Number [facility] DEPARTMENT OF PATHOLOGY AND [address] [place] [phone] [address] Comprehensive metabolic panel (03/20/2018 5:28 PM CONSERVATION OR HERITAGE ARCHITECT)Only the most recent of2 resultswithin the time period is included. [facility] Sodium 139 135 - 148 [facility] mEq/L [facility] Potassium 4.8 3.5 - 5.0 [facility] mEq/L [facility] Chloride 103 98 - 112 mEq/L [facility] CO2 22 (L) 24 - 31 mEq/L [facility] Anion gap 14@ANIO 7 - 15 mEq/L [facility] BUN 57 (H) 6 - 20 mg/dL [facility] Creatinine 2.49 (H) 0.70 - 1.20 [facility] mg/dL [facility] Glucose 332 (H) 65 - 99 mg/dL [facility] Calcium 8.9 8.3 - 10.2 [facility] mg/dL [facility] Protein 6.1 (L) 6.3 - 8.3 g/dL [facility] Comment: HOSPITAL [place] 4.6-7.0 g/dL 1 week 4.4-7.6 g/dL 7 months-1year5.1-7.3 g/dL 1-2 years5.6-7.5 g/dL >3 years6.0-8.0 g/dL 18-150 6.3-8.3 g/dL Albumin 2.9 (L) 3.5 - 5.0 g/dL [facility] A/G ratio 0.9 0.7 - 3.[address] [facility] Alkaline phosphatase 70 40 - 129 U/L [facility] AST 19 10 - 50 U/L [facility] ALT 19 5 - 50 U/L [facility] Total bilirubin 0.3 0.0 - 1.2 [facility] mg/dL [facility] Specimen Plasma specimen Performing Organization Address City/State/Zipcode Phone Number [facility] DEPARTMENT OF PATHOLOGY AND [address] [place] [address] [address] [facility] [address] [place] [address] ECG 12 lead (03/20/2018 5:24 PM [employer] HERITAGE ARCHITECT)Only the most recent of2 resultswithin the time period is included. Pathologist [facility] Ventricular rate 58 [facility] MUSE Atrial rate 58 HM MUSE VA interval 138 HM MUSE QRSD interval 146 HM MUSE QT interval 474 HM MUSE QTC interval 465 [facility] MUSE P axis 1 29 [place] [facility] M[facility] QRS axis 1 76 [facility] MUSE T wave axis 34 [facility] MUSE EKG impression Sinus bradycardia-Right [facility] MUSE bundle branch block-Abnormal ECG-In automated comparison with ECG of 07-FEB-2018 10:01,-No significant change was found- Specimen Narrative Performed At Performing Organization Address [facility] Phone Number [facility] MUSE [address] [place] [address] XR Forearm 2 Vw Right (02/13/2018 11:25 AM CDT) Specimen Narrative Performed At EXAMINATION:XR FOREARM 2 VW RIGHT [facility] CLINICAL HISTORY:right forearm pain COMPARISON:none. IMPRESSION: 1.No displaced fractures or dislocations. IV catheter noted along the volar aspect of the forearm. [facility]-[id number] Procedure Note Interface, Radiology Results Incoming - 02/13/2018 11:44 AM CDT EXAMINATION: XR FOREARM 2 VW RIGHT CLINICAL HISTORY: right forearm pain COMPARISON: none. IMPRESSION: 1. No displaced fractures or dislocations. IV catheter noted along the volar aspect of the forearm. [facility]-[id number] Performing Organization Address [facility] Phone Number [facility] [address] [place] [address] [place] Modified Barium Swallow (02/13/2018 10:26 AM [...] to Speech Pathology report for further details. [facility]-[id number] Procedure Note Interface, Radiology Results Incoming - [...] to Speech Pathology report for further details. [facility]-[id number] Performing Organization Address City/State/Zipcode Phone Number HM [facility] [address] [place] [address] Cardiac mri stroke eval w contrast (02/12/2018 12:06 PM CDT) Specimen Narrative Performed At [facility] CMR Report Name:PAOLA KWONG :1965 Scan Date: [...] Lateral | Normal/Hyper | None ||| | [place] | Normal/Hyper | None ||| + + [...] SCAN INFO GENERAL CONTRAST AGENT TYPE:Dotarem LOT NUMBER:[id number] EXPIRATION DATE:2018-09-26 00:00:00 VOLUME ADMINISTERED:26 ml DOSAGE FOR 0.5M:0.15 mmol/kg SERUM CREATININE:1.5 sCr GFR:52.65 ml/min/1.73m^2 CREATININE DATE:2018-02-12 00:00:00 SEDATION SEDATION USED?:Yes TYPE:Lorazepam DOSE:0.5 mg ANY REACTION?:No PULSE SEQUENCES Single-Shot SSFP, IR SSFP - Single Shot, SSFP Cine, Phase Contrast Velocity Mapping, 3D MRA w and w/o contrast, Time-Resolved 3D MRA SETUP TYPE:Clinical INPATIENT:Yes LOCATION:[facility] INCOMPLETE SCAN:No REASON(S) FOR SCAN:Stroke Evaluation REFERRING PHYSICIAN:Usha Oquendo MD ATTENDING PHYSICIAN:USHA LICEA TECHNICIANS:1) Danielle CASIANO BILLJAMIE Patient Account [id number] CPT Codes 61827, 16954 ICD10 Codes G45.9 Report generated by Newser, a product of [employer] Procedure Note Interface, Radiology Results In - [...] Normal/Hyper | None | | | | [place] | Normal/Hyper | None | | | [...] GENERAL CONTRAST AGENT TYPE: Dotarem LOT NUMBER: [id number] EXPIRATION DATE: 2018-09-26 00:00:00 VOLUME ADMINISTERED: 26 [...] MRA SETUP TYPE: Clinical INPATIENT: Yes LOCATION: [facility] INCOMPLETE SCAN: No REASON(S) FOR SCAN: Stroke Evaluation REFERRING PHYSICIAN: Usha Oquendo MD ATTENDING PHYSICIAN: USHA LICEA TECHNICIANS: 1) Danielle CASIANO BILLING Patient Account [id number] CPT Codes 94412, 50159 ICD10 Codes G45.9 Report generated by Newser, a product of [employer] Organization Address City/State/Zipcode Phone Number CUP[facility] [address] [place] [address] CT Sinus Wo Contrast (02/11/2018 8:24 PM [...] on the left. IMPRESSION: No significant abnormality. [facility]-[id number] Procedure Note Interface, Radiology Results Incoming - [...] on the left. IMPRESSION: No significant abnormality. [facility]-[id number] Performing Organization Address City/[facility]/Zipcode Phone Number EMERY [address] [place] [address] Vitamin D 25 hydroxy level (02/11/2018 4:30 AM CDT) Vitamin D, 6.5 (L) 30.0 - 150.0 [facility] DEPARTMENT OF 25-hydroxy Comment: ng/mL [...] alternative methods. Specimen Blood Performing Organization Address [facility] Phone Number [facility] DEPARTMENT OF PATHOLOGY AND [address] [place] [address] [facility] MEDICINE Lipase level (02/11/2018 4:30 AM CDT) Lipase 77 (H) 13 - 60 U/L [facility] DEPARTMENT OF PATHOLOGY AND GENOMIC MEDICINE Specimen Plasma specimen Performing Organization Address City/[facility]/Zipcode Phone Number [facility] DEPARTMENT OF PATHOLOGY AND [address] [place] [address] [facility] Amylase level (02/11/2018 4:30 AM CDT) Amylase 71 28 - 100 U/L [facility] DEPARTMENT OF PATHOLOGY AND GENOMIC MEDICINE Specimen Plasma specimen Performing Organization Address City/[facility]/Zipcode Phone Number [facility] DEPARTMENT OF PATHOLOGY AND [address] [place] [address] [facility] MRI Brain Wo Contrast (02/10/2018 12:02 PM CDT)Only the most recent of2 resultswithin the time period is included. Specimen Narrative Performed At EXAMINATION: MRI BRAIN WO CONTRAST 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 [facility]-[id number] Performing Organization Address City/State/Zipcode Phone Number [facility] [address] [place] [address] Echocardiogram complete w contrast and 3D if needed (02/09/2018 8:20 AM CDT) Specimen Narrative Performed At [facility] Echocardiography Report [address] [facility], [facility], [place] [address] Pat.Name:PAOLA KWONG Rebecca.ID:[id number] .Date: 02/09/2018Refer.MD:MILTON ELLINGTON MD Exam Time: 7:43:00 AMStudy Type:Routine Echo Height:67inBSA: 1.97 m2 DOBAge:1965,52YSex: MALE BP:127/63HR: 68 bpm Sonogrphr: Rosemary Slater, RDCS, RVTPat. Stat.:Inpatient Room:[address] Study Status:Final Echo Event ID:[id number] Order ID:[id number] Reason for Study:Stroke History / Clinical:Chest Pain, Diabetes, Hyperlipidemia, Hypertension, Cirrhosis, OR, Infectious Viral Hepatitis Procedures:2D Echo, Colorflow Doppler, [...] PA systolic pressure. MEASUREMENTS: 2D Parasternal [place] LVOT 2.2 cmLA Ds4.2 cm LVIDd5 cmIndex2.5 cm/m Ao An2.5 cm LVIDs2.8 cmAo Rtd 3.4 cm Index1.7 cm/m LV%fs 44 % LV Ywma706.4 g(122-174) IVSd 1 cmLVM Index 98.7 g/m2 LVPWd1.1 cmRWT0.4 LA Sng Plane LA Area 24.3 cm2(8.8-23.4) LA Vol78.5 ml Index39.8 ml/m LA LngAx 6.5 cm DOPPLER LVOT Stroke Vol LVOT 2.2 cmLVOT CO4.9 l/min LVOT TVI21.7 cmLVOT CI2.5 l/m/m2 LVOT Tm382 lkyxOG93 bpm LVOT SV 82.6 ml Signed 02/09/2018 02:05 PM Tulio Daniels M.D. Procedure Note Interface, Radiology Results In - 02/09/2018 2:05 PM CDT Echocardiography Report [address] [place] [address] Pat.Name: PAOLA KWONG Pat.ID: [id number] St.Date: 02/09/2018 Refer.MD: MILTON ELLINGTON MD Exam Time: 7:43:00 AM Study Type:Routine Echo Height: 67in BSA: 1.97 m2 Age: 6 1965,52Y Sex: MALE BP: 127/63 HR: 68 bpm Sonogrphr: Rosemary Slater RDCS, RVT Pat. Stat.:Inpatient Room: [address] Study Status:Final Echo Event ID:[id number] Order ID: [id number] Reason for Study:Stroke History / Clinical:Chest Pain, Diabetes, Hyperlipidemia, Hypertension, Cirrhosis, OR, Infectious Viral Hepatitis Procedures:2D Echo, Colorflow Doppler, [...] PA systolic pressure. MEASUREMENTS: 2D Parasternal [place] LVOT 2.2 cm LA Ds 4.2 cm [...] PM Tulio Daniels M.D. Performing Organization Address City/[facility]/Zipcode Phone Number CUPID [address] [place] [address] Glucose level (02/08/2018 8:33 PM CDT) Glucose 502 (HH) 65 - 99 mg/dL [facility] DEPARTMENT OF PATHOLOGY AND GENOMIC MEDICINE Specimen Plasma specimen Performing Organization Address [facility] Centercode Phone Number [facility] DEPARTMENT OF PATHOLOGY AND [address] [place] [address] GENOMIC MEDICINE Potassium level (02/08/2018 3:27 PM CDT) Potassium 4.3 3.5 - 5.0 mEq/L [facility] DEPARTMENT OF PATHOLOGY AND GENOMIC MEDICINE Specimen Plasma specimen Performing Organization Address [facility] Cent[facility]ode Phone Number [facility] DEPARTMENT OF PATHOLOGY AND [address] [place] [address] GENOMIC MEDICINE Magnesium level (02/08/2018 3:27 PM CDT) Magnesium 2.0 1.6 - 2.6 mg/dL [facility] DEPARTMENT OF PATHOLOGY AND GENOMIC MEDICINE Specimen Plasma specimen Performing Organization Address [facility] Phone Number [facility] DEPARTMENT OF PATHOLOGY AND [address] [place] [address] GENOMIC MEDICINE MRI Lumbar Spine Wo Contrast (02/08/2018 [...] bilateral foraminal narrowing. No central canal narrowing. [facility]-[id number] Procedure Note Interface, Radiology Results Incoming - [...] bilateral foraminal narrowing. No central canal narrowing. [facility]-[id number] Performing Organization Address [facility]/[employer] Phone Number [email or web address] [address] [place] [address] MRI Thoracic Spine Wo Contrast (02/08/2018 8:49 [...] or foraminal narrowing in the thoracic spine. [facility]-[id number] Procedure Note Interface, Radiology Results Incoming - 02/08/2018 11:09 [...] or foraminal narrowing in the thoracic spine. [facility]-[id number] Performing Organization Address [facility]/[employer] Phone Number [email or web address] [address] [place] [address] MRI Cervical Spine Wo Contrast (02/08/2018 8:30 [...] nerve roots. No significant spinal canal stenosis. [facility]-[id number] Procedure Note Interface, Radiology Results Incoming - [...] nerve roots. No significant spinal canal stenosis. [facility]-[id number] Performing Organization Address City/State/Zipcode Phone Number [facility] [address] [place] [address] Urine drugs of abuse screen (02/08/2018 1:00 AM CDT) Amphetamine screen, Negative [facility] DEPARTMENT OF urine PATHOLOGY AND GENOMIC MEDICINE Barbiturate screen, Negative [facility] DEPARTMENT OF urine PATHOLOGY AND GENOMIC MEDICINE Benzodiazepine Negative [facility] DEPARTMENT OF screen, urine PATHOLOGY AND GENOMIC MEDICINE Cannabinoid screen, Negative [facility] DEPARTMENT OF urine PATHOLOGY AND GENOMIC MEDICINE Cocaine screen, urine Negative [facility] DEPARTMENT OF PATHOLOGY AND GENOMIC MEDICINE Methadone metabolite Negative [facility] DEPARTMENT OF (EDDP), urine PATHOLOGY AND GENOMIC MEDICINE Opiates screen, urine Negative [facility] DEPARTMENT OF PATHOLOGY AND GENOMIC MEDICINE Oxycodone screen, Negative [facility] DEPARTMENT OF urine PATHOLOGY AND GENOMIC MEDICINE Phencyclidine screen, Negative [facility] DEPARTMENT OF urine PATHOLOGY AND GENOMIC MEDICINE Tricyclic screen, Negative [facility] DEPARTMENT OF urine Comment: PATHOLOGY AND Drug screen minimum concentration of detectability GENOMIC MEDICINE Yqdbbghbrdlm3690 ng/mL Barbiturates 200 ng/mL Fjipkkcdlnhuwdt587 ng/mL Oqgzeyq062 ng/mL Iwifepbqu301 ng/mL Parkgmz860 ng/mL Aeotvfbuw856 ng/mL Phencyclidine 25 ng/mL Xecixuubsozy81 ng/mL Nytmyllbqy8711 ng/mL Negative test results indicates presumptive evidence of lack of clinically significant drug concentration in this urine specimen. Positive test results are presumptive evidence of clinically significant drug concentration in this urine specimen. Testing performed for medical purposes only. Specimen Urine Performing Organization Address [facility] Phone Number [facility] DEPARTMENT OF PATHOLOGY AND [address] [place] [address] Sedimentation rate (02/08/2018 1:00 AM CDT) Pathologist [facility] Sedimentation rate 48 (H) 0 - 10 mm/hr [facility] DEPARTMENT OF PATHOLOGY AND GENOMIC MEDICINE Specimen Blood Performing Organization Address [facility] Phone Number [facility] DEPARTMENT OF PATHOLOGY AND [address] [place] [address] Syphilis treponemal IgG (02/07/2018 9:55 PM CDT) Pathologist [facility] Syphilis Non-reactiveComment Non-reactive [facility] DEPARTMENT OF treponemal IgG : Non-reactive: No PATHOLOGY AND serological [facility] evidence of Syphilis infection Specimen Serum Performing Organization Address [facility] Phone Number [facility] DEPARTMENT OF PATHOLOGY AND [address] [place] [address] HIV Ag/Ab combination (02/07/2018 9:55 PM CDT) Pathologist [facility] HIV Ag/Ab Non-reactive Non-reactive [facility] DEPARTMENT OF combination PATHOLOGY AND [facility] MEDICINE Specimen Blood Performing Organization Address [facility] Phone Number [facility] DEPARTMENT OF PATHOLOGY AND [address] [place] [address] Homocystine, plasma (02/07/2018 9:54 PM CDT) Pathologist [facility] Homocysteine 16.5 (H) 0.0 - 15.0 [facility] DEPARTMENT OF Comment: umol/L PATHOLOGY AND The risk for coronary vascular disease increases progressively GENOMIC MEDICINE with homocysteine concentration.A 3.4 times greater risk is associated with a homocysteine concentration of greater than 15.8 umol/L as compared to a concentration below 14.1 umol/L. Specimen Plasma specimen Performing Organization Address [facility] Phone Number [facility] DEPARTMENT OF PATHOLOGY AND [address] [place] [address] C-reactive protein (02/07/2018 9:54 PM CDT) CRP 0.39 0.00 - 0.50 mg/dL [facility] DEPARTMENT OF PATHOLOGY AND GENOMIC MEDICINE Specimen Plasma specimen Performing Organization Address City/State/Zipcode Phone Number [facility] DEPARTMENT OF PATHOLOGY AND [address] [place] [address] Folate level (02/07/2018 9:54 PM CDT) Folate 18.4 4.8 - 24.2 ng/mL [facility] DEPARTMENT OF PATHOLOGY AND GENOMIC MEDICINE Specimen Serum Performing Organization Address City/[facility] Phone Number [facility] DEPARTMENT OF PATHOLOGY AND [address] [place] [address] Vitamin B12 level (02/07/2018 9:54 PM CDT) Vitamin B12 [phone] [facility] DEPARTMENT OF Comment: pg/mL PATHOLOGY AND Significant overlap exists between normal and deficiency states. [facility] MEDICINE However, most patients with deficiencies will have Serum B12 <200 pg/mL. Specimen Serum Performing Organization Address City/[facility] Phone Number [facility] DEPARTMENT OF PATHOLOGY AND [address] [place] [address] MRI Face Wo Contrast (02/07/2018 7:19 PM [...] IMPRESSION: Limited examination demonstrating no acute abnormality. [facility]-[id number] Procedure Note Interface, Radiology Results Incoming - 02/07/2018 7:29 [...] IMPRESSION: Limited examination demonstrating no acute abnormality. [facility]-[id number] Performing Organization Address [facility] Phone Number [facility] [address] [place] [address] MRA Neck Wo Contrast (02/07/2018 7:19 PM [...] cervical vertebral arteries. IMPRESSION: No significant abnormality. [id number] Procedure Note Interface, Radiology Results Incoming - [...] cervical vertebral arteries. IMPRESSION: No significant abnormality. [facility]-[id number] Performing Organization Address [facility] Phone Number [facility] [address] [place] [address] MRA Head Wo Contrast (02/07/2018 6:53 PM [...] to that seen on the prior study. [facility]-[id number] Procedure Note Interface, Radiology Results Incoming - [...] to that seen on the prior study. [facility]-[id number] Performing Organization Address City/[facility]/Zipcode Phone Number [facility] [address] [place] [address] C difficile toxin (02/07/2018 6:00 PM CDT) Clostridium No Clostridium difficle toxin present [facility] DEPARTMENT OF difficile toxin Comment: PATHOLOGY AND Specimen Information [facility] MEDICINE Specimen Source: Stool Specimen Site: Nonpreserved Specimen Stool - Nonpreserved Performing Organization Address City/[facility] Phone Number [facility] DEPARTMENT OF PATHOLOGY AND [address] [place], [place] [id number] [facility] CTA Head W Wo Contrast (02/07/2018 2:25 PM CDT) Specimen Narrative Performed At EXAMINATION:CT ANGIOGRAM HEAD W WO [facility] CLINICAL H[facility]ORY:ataxia COMPARISON:Head CT on [...] is diffuse moderate stenosis of right P1-P3 SEE SUPERVISOR. There is normal contrast enhancement with no significant stenosis or occlusion along bilateral vertebral arteries, basilar artery, cerebellar arteries, and left SEE SUPERVISOR. The vertebral arteries are codominant. The posterior communicating arteries are not well-visualized. There is no evidence of cerebral aneurysm in the proximal qaw[place]angin of [place]. There is no evidence of perfusion-weighted defect on CTA source images. IMPRESSION: 1. Diffuse moderate stenosis of right P1-P3 SEE SUPERVISOR. No significant stenosis or occlusion in remaining proximal qawalangin of Murphy. 2. No evidence of perfusion-weighted defect on CTA source images. [facility]-[id number] Procedure Note Interface, Radiology Results Incoming - [...] is diffuse moderate stenosis of right P1-P3 SEE SUPERVISOR. There is normal contrast enhancement with no significant stenosis or occlusion along bilateral vertebral arteries, basilar artery, cerebellar arteries, and left SEE SUPERVISOR. The vertebral arteries are codominant. The posterior communicating arteries are not well-visualized. There is no evidence of cerebral aneurysm in the proximal qawalangin of [place]. There is no evidence of perfusion-weighted defect on CTA source images. IMPRESSION: 1. Diffuse moderate stenosis of right P1-P3 SEE SUPERVISOR. No significant stenosis or occlusion in remaining proximal qawalangin of Murphy. 2. No evidence of perfusion-weighted defect on CTA source images. [facility]-[id number] Performing Organization Address City/State/Zipcode Phone Number [facility] [address] [place] [address] CTA Neck W Wo Contrast (02/07/2018 2:12 [...] No significant carotid or vertebral artery stenosis. [facility]-[id number] Procedure Note Interface, Radiology Results Incoming - [...] No significant carotid or vertebral artery stenosis. [facility]-[id number] Performing Organization Address City/State/Zipcode Phone Number [facility] [address] [place] [address] Blood culture, aerobic & anaerobic (02/07/2018 11:15 AM CDT)Only the most recent of2 resultswithin the time period is included. Blood culture No growth after 5 days of incubation. [facility] DEPARTMENT OF isolate Comment: PATHOLOGY AND Specimen Information GENOMIC MEDICINE Specimen Source: Blood Specimen Site: Hand, left Specimen Blood - Hand, left Performing Organization Address [facility] Phone Number [facility] DEPARTMENT OF PATHOLOGY AND [address] [place] [address] GENOMIC MEDICINE ECG ED Preliminary Interpretation - NOT AN ORDER (02/07/2018 10:49 AM CDT) Narrative Performed At Derrek Mcgee DO 02/07/20184:02 PM ECG ED Preliminary Interpretation - Not an Order Performed by: DERREK MCGEE Authorized by: DERREK MCGEE ECG reviewed by ED Physician in the absence of a wax machine operator: yes Interpretation: Interpretation: abnormal Rate: ECG rate:59 ECG rate assessment: bradycardic Rhythm: Rhythm: sinus bradycardia QRS: QRS axis:Normal QRS intervals:Normal Conduction: Conduction: abnormal Abnormal conduction: complete RBBB ST segments: ST segments:Normal T waves: T waves: normal Beta hydroxybutyrate (02/07/2018 10:30 AM CDT) Beta hydroxybutyrate 0.14 0.02 - 0.27 [facility] DEPARTMENT OF mmol/L PATHOLOGY AND GENOMIC MEDICINE Specimen Serum Performing Organization Address [facility] Phone Number [facility] DEPARTMENT OF PATHOLOGY AND [address] [place] [address] GENOMIC MEDICINE after 01/02/2018 Insurance Payer Benefit Plan / Subscriber ID Effective Phone Address Type Group Dates PENDING PENDING xxxxxxxxx 2018-Pre [address] Medicaid MEDICAID DISABILITY sent [id number] [place] COVER[place] [phone] ([place]) [address] [place] [address] Advance Directives For more information, please contact: [phone] Type Date Recorded 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
[2019-01-03] MEDS ORDERED: ASPIRIN 81 MG CHEWABLE TABLET ONE (06:26)
[2019-01-03] MEDS ORDERED: NITROGLYCERIN 0.4 MG/TAB SL ONE (06:26)
[2019-01-03] MEDS ORDERED: FENTANYL CITR 100 MCG/2 ML ONE (06:41)
[2019-01-03] MEDS ORDERED: ONDANSETRON 4 MG/2 ML VIAL ONE (06:41)
[2019-01-03 06:46] LABS: Basophils % 1.3 % (0-1.3); Hematocrit 39.7 % (39.6-49.0); Lymphocytes % 36.7 % (15.3-44.8); MPV 10.3 fL (7.6-11.3); Protime INR 0.89; RBC Red Blood Cell Count 4.39 M/uL (4.33-5.43)
[2019-01-03 07:22] LABS: BUN Blood Urea Nitrogen 41 mg/dL (7-18); Bicarbonate 25 mmol/L (21-32); Magnesium 2.2 mg/dL (1.8-2.4); NT PRO-BNP 226 pg/mL (<125); Potassium 3.9 mmol/L (3.5-5.1); Sodium Level 139 mmol/L (136-145); Troponin (Emerg Dept Use Only) < 0.02 ng/mL (0.0-0.045)
[2019-01-03 07:25] LABS: Glucose Level 427 mg/dL (74-106)
[2019-01-03] MEDS ORDERED: INSULIN -REGULAR HUMAN 50 UNIT/0.5 ML ML ONE ×2 (07:31→09:21)
[2019-01-03] MEDS ORDERED: LORazepam 2 MG/ML VIAL ONE (08:23)
--- NOTE | 2019-01-03 08:24 | ER ---
Nurse's Notes [facility] Name: Wero Kwong Sr Age: 53 yrs Sex: Male : 1965 Arrival Date: 01/03/2019 Time: 06:00 Bed 7 Private MD: Diagnosis: Chest pain, unspecified Presentation: 01/03 06:07 Presenting complaint: Patient states: I started having a headache and chest pain with tl1 nausea around 0400. Transition of care: patient was not received from another setting of care. Onset of symptoms was January 03, 2019. Risk Assessment: Do you want to hurt yourself or someone else? Patient reports no desire to harm self or others. Initial Sepsis Screen: Does the patient meet any 2 criteria? No. Patient's initial sepsis screen is negative. Does the patient have a suspected source of infection? No. Patient's initial sepsis screen is negative. Care prior to arrival: None. 06:07 Method Of Arrival: Wheelchair tl1 06:07 Acuity: [place] 2 tl1 Historical: - Allergies: 06:14 Codeine; tl1 06:14 Morphine; tl1 06:14 Hydrocodone-Acetaminophen; tl1 - Home Meds: 06:14 aspirin 81 mg Oral TbEC 1 tab once daily [Active]; citalopram 20 mg tab 1 tab once tl1 daily [Active]; gabapentin 300 mg Oral cap [Active]; lisinopril 20 mg Oral tab 1 tab once daily [Active]; Plavix 75 mg Oral tab 1 tab once daily [Active]; simvastatin 80 mg Oral tab daily [Active]; furosemide 40 mg Oral tab 1 tab 2 times per day [Active]; spironolactone 25 mg Oral tab 1 tab once daily [Active]; levetiracetam 500 mg oral tab 1 tab [Active]; travatan eye drops [Active]; Humulin 70/30 100 unit/mL (70-30) Sub-Q susp [Active]; - PMHx: 06:14 CAD; CVA; High Cholesterol; Hypertension; Myocardial infarction; neuropathy; Seizures; tl1 Diabetes - IDDM; - PSHx: 06:14 cardiac stents; Cholecystectomy; tl1 - Immunization history:: Adult Immunizations up to date. - Social history:: Smoking status: Patient uses tobacco products, smokes two packs cigarettes per day. Patient/guardian denies using alcohol, street drugs. - Ebola Screening: : Patient negative for fever greater than or equal to 101.5 degrees Fahrenheit, and additional compatible Ebola Virus Disease symptoms Patient denies exposure to infectious person Patient denies travel to an Ebola-affected area in the 21 days before illness onset. Screenin:15 Abuse screen: Denies threats or abuse. Denies injuries from another. Nutritional tl1 screening: No deficits noted. Tuberculosis screening: No symptoms or risk factors identified. Fall Risk IV access (20 points). Gait- Weak (10 pts.). Assessment: 06:15 General: Appears in no apparent distress. uncomfortable, Behavior is calm, cooperative, tl1 appropriate for age. Pain: Complains of pain in top of head, chest pain Pain does not radiate. Pain currently is 10 out of 10 on a pain scale. Quality of pain is described as aching, pressure, sharp, shooting, Pain began 2 hours ago. Neuro: Level of Consciousness is awake, alert, obeys commands, Oriented to person, place, time, situation. Cardiovascular: Reports chest pain, nausea, Capillary refill < 3 seconds Patient's skin is warm and dry. Respiratory: Airway is patent Trachea midline Respiratory effort is even, unlabored, Respiratory pattern is regular, symmetrical, Breath sounds are clear bilaterally. GI: Bowel sounds present X 4 quads. Abd is soft and non tender X 4 quads. Reports nausea. : No signs and/or symptoms were reported regarding the genitourinary system. EENT: No signs and/or symptoms were reported regarding the EENT system. 07:06 Reassessment: Patient and/or family updated on plan of care and expected duration. Pain ae4 level reassessed. 07:13 Reassessment: Patient requesting team check his glucose as he his a diabetic. Pt denies ae4 feeling light headed, denies nausea and denies feeling "shaky". Provider notified of FSBS reading, no new orders at this time. 08:12 Reassessment: Provider at bedside discussing plan of care. ae4 08:23 Reassessment: Patient c/o "crushing chest pain" provider notified of increased pain, ae4 new orders received. 08:39 Reassessment: Patient appears more relaxed, still reports "shooting pains " in chest ae4 and head. Patient is emotional, tearing up, stating " I've had a hard life. It's been one thing after another." Patient denies suicidal ideation and desire to harm others at this time. Patient also states that he has "night terrors" and instructs healthcare team to use caution when trying to wake him up. Patient reports he has been known to wake up "violently.". 08:52 Reassessment: Repeat EKG completed at this time, delivered to provider. ae4 09:06 Reassessment: REPEAT BGL COMPLETED, NO SIGNIFICANT CHANGE. ADMIT IN PROCESS. bp 11:09 Reassessment: BED ASSIGNED, NO ACUTE S/S AT THIS TIME. bp 11:12 Reassessment: FLOOR NURSE UNAVAILABLE FOR REPORT, ADMIT ON HOLD. bp Vital Signs: 06:08 BP 184 / 103; Pulse 97; Resp 17; Temp 98.5(O); Pulse Ox 95% on R/A; Weight 98.43 kg; tl1 Height 5 ft. 7 in. (170.18 cm); Pain 10/10; 06:15 BP 163 / 99; Pulse 94; Resp 20; Pulse Ox 94% on R/A; lp1 06:30 BP 111 / 69; Pulse 96; Resp 19; Pulse Ox 95% on R/A; lp1 07:08 BP 132 / 84; Pulse 90; Resp 24; Pulse Ox 97% 1 lpm ; ae4 08:02 BP 110 / 79; Pulse 88; Resp 15; Pulse Ox 98% on 1 lpm NC; ae4 08:44 BP 100 / 75; Pulse 81; Resp 20; Pulse Ox 98% on 1 lpm NC; ae4 09:06 BP 108 / 73; Pulse 81; Resp 17; Pulse Ox 92% ; bp 10:21 BP 120 / 73; Pulse 75; Resp 12; Pulse Ox 98% on 1 lpm NC; ae4 11:08 BP 100 / 71; Pulse 67; Resp 11; Temp 98.5; Pulse Ox 98% ; bp 11:50 BP 104 / 68; Pulse 70; Resp 9; Temp 98.5; Pulse Ox 99% ; bp 06:08 Body Mass Index 33.99 (98.43 kg, 170.18 cm) tl1 ED Course: 06:00 Patient arrived in ED. ds1 06:08 Triage completed. tl1 06:09 [facility]. jr8 06:09 Gregory Rivas MD is Attending Physician. jr8 06:14 Arm band placed on right wrist. EKG completed in triage. Results shown to MD. tl1 06:14 No provider procedures requiring assistance completed. Inserted saline lock: 20 gauge tl1 in right antecubital area, using aseptic technique. Blood collected. Patient maintains SpO2 saturation greater than 95% on room air. 06:15 Patient has correct armband on for positive identification. Placed in gown. Bed in low lp1 position. rail doweling machine operator on. Pulse ox on. NIBP on. 06:21 XRAY Chest (1 view) In Process Unspecified. EDMS 06:28 Malu Feldman RN is Primary Nurse. tl1 06:56 Oxygen administration via nasal cannula \\T\\ 2L/min. tl1 08:16 Maricarmen Sheridan MD is Hospitalizing Provider. jr8 11:09 Patient admitted, IV remains in place. bp Administered Medications: 06:27 Drug: Nitroglycerin 0.4 mg Route: Sublingual; tl1 06:44 Follow up: Response: No adverse reaction; Blood pressure is lowered tl1 06:27 Drug: Aspirin Chewable Tablet 324 mg Route: PO; tl1 06:44 Follow up: Response: No adverse reaction; No change in condition tl1 06:43 Drug: fentaNYL (PF) 50 mcg Route: IVP; Infused Over: 2 mins; Site: right antecubital; tl1 06:57 Follow up: Response: No adverse reaction; Marked relief of symptoms; Pain is decreased tl1 06:44 Drug: Zofran 4 mg Route: IVP; Infused Over: 2 mins; Site: right antecubital; tl1 06:56 Follow up: Response: No adverse reaction; Marked relief of symptoms; Nausea is decreasedtl1 07:28 Drug: Insulin Regular Human 10 units {Co-Signature: ss (Irene Tse RN).} Route: IVP; ae4 Site: right antecubital; 08:18 Follow up: Response: Blood sugar is lowered; FSBS 410 ae4 08:26 Drug: Ativan 1 mg Route: IVP; Site: right antecubital; ae4 09:06 Follow up: Response: Anxiety decreased bp 09:20 Drug: Insulin Regular Human 10 units {Co-Signature: ae4 (King Contreras RN).} Route: bp IVP; Site: right antecubital; 11:14 Follow up: Response: Blood sugar is lowered bp 09:20 Drug: Insulin Regular Human 10 units {Co-Signature: ae4 (King Contreras RN).} Route: bp Sub-Q; Site: right upper arm; 11:14 Follow up: Response: Blood sugar is lowered bp Point of Care Testing: Blood Glucose: 07:14 Blood Glucose: 427 mg/dL; ae4 08:09 Blood Glucose: 410 mg/dL; ae4 09:05 Blood Glucose: 425 mg/dL; bp 11:14 Blood Glucose: 357 mg/dL; ms Ranges: Intake: Outcome: 08:17 Decision to Hospitalize by Provider. jr8 11:49 Admitted to Tele accompanied by tech, via stretcher, room 407, with chart, Report bp called to MENDY LEACH 11:49 Condition: stable 11:49 Instructed on the need for admit. 12:05 Patient left the ED. bp Signatures: Dispatcher [employer] EDMS Chelsea Kieta dsMayela Darby ms Shellie Escobedo, RN RN lp1 Allen Shirley PA PA jr8 Malu Feldman, RN RN tl1 Leon Yuen RN RN bp King Contreras, RN RN ae4 Irene Tse RN ss King Contreras RN ae4 Corrections: (The following items were deleted from the chart) 07:19 07:13 Reassessment: Patient requesting team check his glucose as he his a diabetic. Pt ae4 denies feeling light headed, denies nausea and denies feeling "shaky". ae4 08:43 08:39 Reassessment: Patient appears more relaxed, still reports "shooting pains " in ae4 chest and head. Patient is emotional, tearing up, stating " I've had a hard life. It's been one thing after another." Patient denies suicidal ideation and desire to harm others at this time. ae4
--- NOTE | 2019-01-03 08:25 | EDPHYS ---
Physician Documentation [facility] Name: Wero Kwong Sr Age: 53 yrs Sex: Male : 1965 Arrival Date: 01/03/2019 Time: 06:00 Bed 7 Private MD: ED Physician Gregory Rivas HPI: 01/03 07:07 This 53 yrs old Male presents to ER via Wheelchair with complaints of Chest jr8 Pain. 07:07 The patient or guardian reports chest pain that is located primarily in the anterior jr8 chest wall. Onset: acutely, today. The pain radiates to jaw. Associated signs and symptoms: The patient has no apparent associated signs or symptoms. The chest pain is described as sharp, stabbing. Duration: The patient or guardian reports multiple episodes, that are intermittent. Modifying factors: The symptoms are alleviated by nothing. the symptoms are aggravated by nothing. Severity of pain: At its worst the pain was moderate in the emergency department the pain is unchanged. The patient has not experienced similar symptoms in the past. The patient has not recently seen a physician. Extensive cardiac history including multiple LA's and stent placements . Historical: - Allergies: 06:14 Codeine; tl1 06:14 Morphine; tl1 06:14 Hydrocodone-Acetaminophen; tl1 - Home Meds: 06:14 aspirin 81 mg Oral TbEC 1 tab once daily [Active]; citalopram 20 mg tab 1 tab once tl1 daily [Active]; gabapentin 300 mg Oral cap [Active]; lisinopril 20 mg Oral tab 1 tab once daily [Active]; Plavix 75 mg Oral tab 1 tab once daily [Active]; simvastatin 80 mg Oral tab daily [Active]; furosemide 40 mg Oral tab 1 tab 2 times per day [Active]; spironolactone 25 mg Oral tab 1 tab once daily [Active]; levetiracetam 500 mg oral tab 1 tab [Active]; travatan eye drops [Active]; Humulin 70/30 100 unit/mL (70-30) Sub-Q susp [Active]; - PMHx: 06:14 CAD; CVA; High Cholesterol; Hypertension; Myocardial infarction; neuropathy; Seizures; tl1 Diabetes - IDDM; - PSHx: 06:14 cardiac stents; Cholecystectomy; tl1 - Immunization history:: Adult Immunizations up to date. - Social history:: Smoking status: Patient uses tobacco products, smokes two packs cigarettes per day. Patient/guardian denies using alcohol, street drugs. - Ebola Screening: : Patient negative for fever greater than or equal to 101.5 degrees Fahrenheit, and additional compatible Ebola Virus Disease symptoms Patient denies exposure to infectious person Patient denies travel to an Ebola-affected area in the 21 days before illness onset. ROS: 07:07 Eyes: Negative for injury, pain, redness, and discharge, ENT: Negative for injury, jr8 pain, and discharge, Neck: Negative for injury, pain, and swelling, Respiratory: Negative for shortness of breath, cough, wheezing, and pleuritic chest pain, Abdomen/GI: Negative for abdominal pain, nausea, vomiting, diarrhea, and constipation, Back: Negative for injury and pain, MS/Extremity: Negative for injury and deformity, Skin: Negative for injury, rash, and discoloration, Neuro: Negative for headache, weakness, numbness, tingling, and seizure. 07:07 Cardiovascular: Positive for chest pain, Negative for edema, orthopnea, palpitations, paroxysmal nocturnal dyspnea. Exam: 07:07 Eyes: Pupils equal round and reactive to light, extra-ocular motions intact. Lids and jr8 lashes normal. Conjunctiva and sclera are non-icteric and not injected. Cornea within normal limits. Periorbital areas with no swelling, redness, or edema. ENT: Nares patent. No nasal discharge, no septal abnormalities noted. Tympanic membranes are normal and external auditory canals are clear. Oropharynx with no redness, swelling, or masses, exudates, or evidence of obstruction, uvula midline. Mucous membranes moist. Neck: Trachea midline, no thyromegaly or masses palpated, and no cervical lymphadenopathy. Supple, full range of motion without nuchal rigidity, or vertebral point tenderness. No Meningismus. Chest/axilla: Normal chest wall appearance and motion. Nontender with no deformity. No lesions are appreciated. Cardiovascular: Regular rate and rhythm with a normal S1 and S2. No gallops, murmurs, or rubs. Normal PMI, no JVD. No pulse deficits. Respiratory: Lungs have equal breath sounds bilaterally, clear to auscultation and percussion. No rales, rhonchi or wheezes noted. No increased work of breathing, no retractions or nasal flaring. Abdomen/GI: Soft, non-tender, with normal bowel sounds. No distension or tympany. No guarding or rebound. No evidence of tenderness throughout. Back: No spinal tenderness. No costovertebral tenderness. Full range of motion. Skin: Warm, dry with normal turgor. Normal color with no rashes, no lesions, and no evidence of cellulitis. MS/ Extremity: Pulses equal, no cyanosis. Neurovascular intact. Full, normal range of motion. Neuro: Awake and alert, GCS 15, oriented to person, place, time, and situation. Cranial nerves II-XII grossly intact. Motor strength 5/5 in all extremities. Sensory grossly intact. Cerebellar exam normal. Normal gait. Vital Signs: 06:08 BP 184 / 103; Pulse 97; Resp 17; Temp 98.5(O); Pulse Ox 95% on R/A; Weight 98.43 kg; tl1 Height 5 ft. 7 in. (170.18 cm); Pain 10/10; 06:15 BP 163 / 99; Pulse 94; Resp 20; Pulse Ox 94% on R/A; lp1 06:30 BP 111 / 69; Pulse 96; Resp 19; Pulse Ox 95% on R/A; lp1 07:08 BP 132 / 84; Pulse 90; Resp 24; Pulse Ox 97% 1 lpm ; ae4 08:02 BP 110 / 79; Pulse 88; Resp 15; Pulse Ox 98% on 1 lpm NC; ae4 08:44 BP 100 / 75; Pulse 81; Resp 20; Pulse Ox 98% on 1 lpm NC; ae4 09:06 BP 108 / 73; Pulse 81; Resp 17; Pulse Ox 92% ; bp 10:21 BP 120 / 73; Pulse 75; Resp 12; Pulse Ox 98% on 1 lpm NC; ae4 11:08 BP 100 / 71; Pulse 67; Resp 11; Temp 98.5; Pulse Ox 98% ; bp 11:50 BP 104 / 68; Pulse 70; Resp 9; Temp 98.5; Pulse Ox 99% ; bp 06:08 Body Mass Index 33.99 (98.43 kg, 170.18 cm) tl1 MDM: 06:09 Patient medically screened. jr8 08:14 The patient was given aspirin in the Emergency Department. Data reviewed: vital signs, [facility] nurses notes, lab test result(s), EKG, radiologic studies, plain films, and as a result, I will admit patient. Data interpreted: Pulse oximetry: on room air is 98 %. Interpretation: normal. Counseling: I had a detailed discussion with the patient and/or guardian regarding: the historical points, exam findings, and any diagnostic results supporting the discharge/admit diagnosis, lab results, radiology results, the need for further work-up and treatment in the hospital. ED course: Patient continues to have chest pressure. Improved but still present. Will admit for obs . 01/03 06:09 Order name: Basic Metabolic Panel; Complete Time: 07:29 [facility] 01/03 06:09 Order name: CBC with Diff; Complete Time: 07:12 [facility] 01/03 06:09 Order name: Magnesium; Complete Time: 07:29 [facility] 01/03 06:09 Order name: NT PRO-BNP; Complete Time: 07:29 [facility] 01/03 06:09 Order name: PT-INR; Complete Time: 07:08 [facility] 01/03 06:09 Order name: Troponin (emerg Dept Use Only); Complete Time: 07:29 [facility] 01/03 10:12 Order name: CBC with Automated Diff [facility] 01/03 10:12 Order name: Comprehensive Metabolic Panel [facility] 01/03 10:12 Order name: CKMB Creatine Kinase MB [facility] 01/03 10:12 Order name: CKMB Creatine Kinase MB [facility] 01/03 10:12 Order name: CKMB Creatine Kinase MB [facility] 01/03 10:12 Order name: CKMB Creatine Kinase MB [facility] 01/03 10:12 Order name: Creatine Phosphokinase [facility] 01/03 10:12 Order name: Creatine Phosphokinase [facility] 01/03 06:09 Order name: XRAY Chest (1 view) [facility] 01/03 10:12 Order name: Creatine Phosphokinase [facility] 01/03 10:12 Order name: Creatine Phosphokinase [facility] 01/03 10:12 Order name: Lipid Profile [facility] 01/03 10:12 Order name: Lipid Profile [facility] 01/03 10:12 Order name: Troponin I [facility] 01/03 10:12 Order name: Troponin I [facility] 01/03 10:12 Order name: Troponin I [facility] 01/03 10:12 Order name: Troponin I [facility] 01/03 06:09 Order name: EKG; Complete Time: 06:10 01/03 06:09 Order name: Cardiac monitoring; Complete Time: 06:27 01/03 06:09 Order name: EKG - Nurse/Tech; Complete Time: 06:01/03 06:09 Order name: IV Saline Lock; Complete Time: 06:28 8 01/03 06:09 Order name: Labs collected and sent; Complete Time: :01/03 06:09 Order name: O2 Per Protocol; Complete Time: :01/03 06:09 Order name: O2 Sat Monitoring; Complete Time: 06:8 01/03 10:12 Order name: Heart Healthy EDMS 01/03 10:12 Order name: EKG Electrocardiogram EDMS 01/03 10:12 Order name: EKG Electrocardiogram EDMS 01/03 10:12 Order name: EKG Electrocardiogram EDMS 01/03 10:12 Order name: EKG Electrocardiogram EDMS Administered Medications: 06:27 Drug: Nitroglycerin 0.4 mg Route: Sublingual; tl1 06:44 Follow up: Response: No adverse reaction; Blood pressure is lowered tl1 06:27 Drug: Aspirin Chewable Tablet 324 mg Route: PO; tl1 06:44 Follow up: Response: No adverse reaction; No change in condition tl1 06:43 Drug: fentaNYL (PF) 50 mcg Route: IVP; Infused Over: 2 mins; Site: right antecubital; tl1 06:57 Follow up: Response: No adverse reaction; Marked relief of symptoms; Pain is decreased tl1 06:44 Drug: Zofran 4 mg Route: IVP; Infused Over: 2 mins; Site: right antecubital; tl1 06:56 Follow up: Response: No adverse reaction; Marked relief of symptoms; Nausea is decreasedtl1 07:28 Drug: Insulin Regular Human 10 units {Co-Signature: ss (Irene Tse RN).} Route: IVP; ae4 Site: right antecubital; 08:18 Follow up: Response: Blood sugar is lowered; FSBS 410 ae4 08:26 Drug: Ativan 1 mg Route: IVP; Site: right antecubital; ae4 09:06 Follow up: Response: Anxiety decreased bp 09:20 Drug: Insulin Regular Human 10 units {Co-Signature: ae4 (King Contreras RN).} Route: bp IVP; Site: right antecubital; 11:14 Follow up: Response: Blood sugar is lowered bp 09:20 Drug: Insulin Regular Human 10 units {Co-Signature: ae4 (King Contreras RN).} Route: bp Sub-Q; Site: right upper arm; 11:14 Follow up: Response: Blood sugar is lowered bp Point of Care Testing: Blood Glucose: 07:14 Blood Glucose: 427 mg/dL; ae4 08:09 Blood Glucose: 410 mg/dL; ae4 09:05 Blood Glucose: 425 mg/dL; bp 11:14 Blood Glucose: 357 mg/dL; ms Ranges: Critical Glucose Levels:Adult <50 mg/dl or >400 mg/dl <40 mg/dl or >180 mg/dl Disposition: 01/03/19 08:17 Hospitalization ordered by Maricarmen Sheridan for Observation. Preliminary diagnosis is Chest pain, unspecified. - Bed requested for Telemetry/MedSurg (observation). - Status is Observation. bp - Condition is Stable. - Problem is new. - Symptoms have improved. UTI on Admission? No Signatures: Dispatcher [employer] EDMS Allen Shirley PA PA jr8 Malu Feldman RN RN tl1 Jacinot Fung RN RN ja1 Leon Yuen RN RN Dania Walker Andrea RN RN ae4 Irene Tse RN ss King Contreras RN ae4 Corrections: (The following items were deleted from the chart) 08:19 08:17 Hospitalization Ordered by Maricarmen Sheridan MD for Observation. Preliminary eb diagnosis is Chest pain, unspecified. Bed requested for Telemetry/MedSurg (observation). Status is Observation. Condition is Stable. Problem is new. Symptoms have improved. UTI on Admission? No. jr8 10:37 08:19 01/03/2019 08:17 Hospitalization Ordered by Maricarmen Sheridan MD for Observation. ja1 Preliminary diagnosis is Chest pain, unspecified. Bed requested for Telemetry/MedSurg (observation). Status is Observation. Condition is Stable. Problem is new. Symptoms have improved. UTI on Admission? No. eb 12:05 10:37 01/03/2019 08:17 Hospitalization Ordered by Maricarmen Sheridan MD for Observation. bp Preliminary diagnosis is Chest pain, unspecified. Bed requested for Telemetry/MedSurg (observation). Status is Observation. Condition is Stable. Problem is new. Symptoms have improved. UTI on Admission? No. ja1
[2019-01-03] MEDS ORDERED: ONDANSETRON 4 MG/2 ML VIAL IV PRN (10:06)
[2019-01-03] MEDS ORDERED: ENOXAPARIN 100 MG/ML SYR SQ SCH (11:00)
[2019-01-03] MEDS: NITROGLYCERIN 0.4 MG/TAB SL PRN ×6 (12:33→15:10)
[2019-01-03] MEDS: ACETAMINOPHEN 500 MG TAB PO PRN (12:35)
[2019-01-03] MEDS ORDERED: D50W 25 GM/50 ML SYRINGE IV PRN ×2 (12:42→12:58)
[2019-01-03] MEDS ORDERED: GLUCAGON 1 MG/VIAL IM PRN ×2 (12:42→12:58)
[2019-01-03] MEDS ORDERED: HYDROMORPHONE HCL 2 MG/ML inj IV ONE ×2 (12:50→16:00)
--- NOTE | 2019-01-03 12:50 | RAD REPORT ---
EXAM DESCRIPTION: RAD - Chest Single View - 01/03/2019 6:22 am CLINICAL HISTORY: CHEST PAIN Chest pain. COMPARISON: Chest Single View dated 07/29/2018; Chest Single View dated 04/22/2018; Chest Single View dated 04/21/2018; Chest Single View dated 03/12/2018 FINDINGS: Portable technique limits examination quality. The lungs are grossly clear. The heart is normal in size. No displaced fractures. IMPRESSION: No acute intrathoracic process suspected.
[2019-01-03] MEDS ORDERED: HYDROMORPHONE HCL 2 MG/ML inj ONE (12:53)
[2019-01-03] MEDS ORDERED: INSULIN -REGULAR HUMAN 50 UNIT/0.5 ML ML SQ ONE (12:58)
[2019-01-03 13:11] LABS: Basophils % 1.3 % (0-1.3); Hematocrit 35.3 % (39.6-49.0); MPV 10.2 fL (7.6-11.3); RBC Red Blood Cell Count 3.92 M/uL (4.33-5.43)
[2019-01-03] MEDS ORDERED: CLOPIDOGREL 75 MG TABLET PO ONE ×2 (13:15→13:30)
[2019-01-03 13:25] LABS: Albumin 2.4 g/dL (3.4-5.0); Bilirubin Total 0.3 mg/dL (0.2-1.0); Potassium 3.7 mmol/L (3.5-5.1); Protein, Total 5.8 g/dL (6.4-8.2)
[2019-01-03 13:37] LABS: Creatine Phosphokinase 308 U/L (39-308); Troponin I < 0.02 ng/mL (0.0-0.045)
[2019-01-03 13:41] LABS: CKMB Creatine Kinase MB 12.2 ng/mL (0.3-3.6)
[2019-01-03] MEDS ORDERED: POTASSIUM CL SA 10 MEQ TAB PO ONE (14:00)
[2019-01-03 14:26] LABS: Urine Appearance CLEAR; Urine Bilirubin NEGATIVE (NEG); Urine Blood 2+ (NEG); Urine Color YELLOW; Urine Glucose 3+ (NEG); Urine Protein 3+ (NEG); Urine Specific Gravity 1.025 (1.005-1.030); Urine Urobilinogen 0.2 mg/dL (0.2-1.0); Urine pH 5.5 (5.0-7.0)
[2019-01-03 14:29] LABS: Urine Microscopic Reflex ORDER UMIC
[2019-01-03 14:51] LABS: Urine Bacteria <20 /HPF (NONE SEEN); Urine Culture Reflex Order NOT NEEDED; Urine RBC <5 /HPF (NONE SEEN)
[2019-01-03] MEDS: INSULIN -REGULAR HUMAN 50 UNIT/0.5 ML ML SQ SCH ×2 (16:38→21:42)
[2019-01-03] MEDS: INSULIN 70/30 100 UNITS/ML SQ SCH (16:39)
--- NOTE | 2019-01-03 17:38 | EKG ---
Test Date: 2019-01-03 Test Time: 15:01:09 Signalman: NICHOLE MEASUREMENT RESULTS: Intervals: Rate: 0 [place]: QRSD: 0 QT: 0 QTc: 0 [place]: P: WA: QRS: 0 T: 0 INTERPRETIVE STATEMENTS: No QRS complexes found, no ECG analysis possible Compared to ECG 01/03/2019 12:53:10 no comparison is possible Electronically Signed On 01-03-19 17:38:29 CDT by David Fabian
--- NOTE | 2019-01-03 17:38 | EKG ---
Test Date: 2019-01-03 Test Time: 15:04:37 Boarder Machine: NICHOLE MEASUREMENT RESULTS: Intervals: Rate: 76 MT: 142 QRSD: 144 QT: 450 QTc: 506 [place]: P: 27 MT: 142 QRS: 97 T: 2 INTERPRETIVE STATEMENTS: Normal sinus rhythm Right bundle branch block Abnormal ECG Compared to ECG 01/03/2019 15:01:09 Right bundle-branch block now present Electronically Signed On 01-03-19 17:37:57 CDT by David Fabian
--- NOTE | 2019-01-03 17:39 | EKG ---
Test Date: 2019-01-03 Test Time: 12:53:10 Clinical Support Specialist: NICHOLE MEASUREMENT RESULTS: Intervals: Rate: 75 WI: 144 QRSD: 152 QT: 456 QTc: 509 [place]: P: 32 WI: 144 QRS: 128 T: 10 INTERPRETIVE STATEMENTS: Normal sinus rhythm Right bundle branch block Abnormal ECG Compared to ECG 07/29/2018 22:45:56 no significant change from previous ECG Electronically Signed On 01-03-19 17:39:01 CDT by David Fabian
[2019-01-03] MEDS: NICOTINE 21 MG/PAT TD SCH (18:06)
[2019-01-03] MEDS ORDERED: NA CHLORIDE 0.9% 1,000 ML IV SCH (19:00)
[2019-01-03 19:33] LABS: Creatine Phosphokinase 315 U/L (39-308); Troponin I < 0.02 ng/mL (0.0-0.045)
[2019-01-03 19:40] LABS: CKMB Creatine Kinase MB 14.4 ng/mL (0.3-3.6)
[2019-01-03] MEDS ORDERED: ATORVASTATIN 40 MG TAB PO SCH ×2 (21:00)
[2019-01-03] MEDS ORDERED: levETIRAcetam 500 MG TAB PO SCH (21:00)
[2019-01-03] MEDS ORDERED: HOME MED 1 EA UNK (Simvastatin [Zocor] 80 MG) PO SCH (21:00)
[2019-01-03] MEDS ORDERED: HYDROCODONE/APAP 7.5/325 MG TAB PO PRN (21:05)
[2019-01-03] MEDS ORDERED: HYDROCODONE/APAP 7.5/325 MG TAB ONE (21:27)
[2019-01-03] MEDS: NA CHLORIDE 0.9% 1,000 ML IV SCH (21:37)
[2019-01-03] MEDS: METOPROLOL TAR 50 MG TAB PO SCH (21:39)
[2019-01-03] MEDS: ACETYLCYST 20% 800 MG/4 ML VIAL PO SCH (21:41)
[2019-01-03] MEDS: GABAPENTIN 400 MG CAP PO SCH (21:41)
[2019-01-03] MEDS: FAMOTIDINE 20 MG TAB PO SCH (21:42)
--- NOTE | 2019-01-03 22:22 | CON ---
History Of Present Illness: Mr. Kwong is 53. He came to the hospital because of chest pain and head aches. Chest pain feels like a heavy weight is on his chest. It comes and goes. His headache is fl eeting feelings of pain, point tenderness usually in the forehead region. They come and go, and then a few minutes later, he will have chest pain that lasts for several minutes and shortness of breath. Mr. Kwong has a history of intracoronary stents. He reports at least 3 different heart attacks and 7 different stents. He also reports a stroke, but there is no evidence of a stroke on MRI and he motta s carotid Dopplers that show hardened plaque, but no significant stenosis, and he does not have an ob vious neurological deficit. He has underlying diabetes, hypertension, dyslipidemia, heart failure wi th normal ejection fraction. At one point, it was believed he had nephrotic syndrome. Medications: His outpatient medications are lisinopril, spironolactone, Lasix, simvastatin, gabapent in, aspirin, Keppra, citalopram, Plavix, and travoprost. Not listed and I am not sure why it is unli sted on his insulin. He reported to me that he takes some brand of insulin that I did not recognize, 70/30, and he takes 80 units once a day. Social History: He uses tobacco. He uses alcohol excessively. He has not really tried to quit smok ing. He thinks his last stent was about [address] Oquendo. Physical Examination: Constitutional: 5 feet 7 inches, 220 pounds, obese. He appears to be older than his stated age, conrado ewhat somnolent, probably because he has had some Dilaudid in the recent few hours before the exam. Respiratory: The lungs do not reveal crackles. CARDIOVASCULAR: The heart exam reveals a regular rate and rhythm. Laboratory Data: Electrocardiogram does not show an injury pattern. It shows some nonspecific reid es in the ST segments, and there is a right bundle-branch block. Two troponins are normal. CK-MB is elevated. Blood sugars are around 427 to 316, all within that range. SGOT, SGPT, bilirubin are nor mal. An albumin level is low at 2.4. A globulin level is normal. There is a lot of protein in his urine. There is some hematuria as well. His creatinine is 2.29. Impression: The patient may be having unstable angina. I set him up for cardiac cath. If his creat inine is going up, his troponins are going up, I recommend we cancel the cardiac cath and try to look at things in other way. I am not sure if this is really an acute coronary syndrome or not. I think the cardiac cath is probably the right way to go to strictly look at the coronary angiogram and limi tin amount of contrast and give Mucomyst to minimize the risk of kidney injury. The patient seems to understand the procedure, its potential benefits, indications, risks, and he agrees to proceed. We will set up for cardiac cath tomorrow. SHAYAN/DOMINIC Voice ID: [id number] Report ID: [id number]
[2019-01-03] MEDS: ATORVASTATIN 80 MG TAB PO SCH (22:43)
[2019-01-03] MEDS ORDERED: LORazepam 2 MG/ML VIAL IV ONE (23:32)
--- NOTE | 2019-01-04 00:05 | P.PN ---
Subjective Date of Service: 01/04/19 Primary Care Provider: unknown Chief Complaint: Chest pain Subjective: Other (Patient presented with chest pain. Patient to have heart catheterization tomorrow. Patient evaluated by Cardiology today.) Physical Examination - Vital Signs Temperature: 97.3 F Blood Pressure: 106/45 Pulse: 60 Respirations: 12 Pulse Ox (%): 98 - Physical Exam General: Alert, In no apparent distress, Cooperative, Other (Increase anxiety noted) HEENT: Atraumatic Neck: Supple Respiratory: Clear to auscultation bilaterally, Normal air movement Cardiovascular: Normal pulses, Regular rate/rhythm Gastrointestinal: Normal bowel sounds, Soft and benign, Non-distended, No tenderness, No masses, No rebound, No guarding Musculoskeletal: No erythema, No tenderness, No warmth Integumentary: No erythema, No warmth, No cyanosis Neurological: Normal speech, Normal strength at 5/5 x4 extr, Normal tone, Abnormal affect (Increased anxiety) - Studies Laboratory Data (last 24 hrs) 01/03/19 06:14: PT 10.5, INR 0.89 01/03/19 06:14: WBC 5.5, Hgb 14.6, Hct 39.7, Plt Count 180 01/03/19 06:14: Sodium 139, Potassium 3.9, BUN 41 H, Creatinine 2.06 H, Glucose 427 H*, Magnesium 2.2 Medications List Reviewed: Yes Assessment & Plan Discharge Plan: Home Plan to discharge in: 24 Hours Physician Review Additional Text: Impression: Chest pain possible unstable angina with history of CAD Acute on chronic renal failure stage 3 Diabetes mellitus type 2 insulin-dependent Hypertension Hyperlipidemia Seizure disorder Tobacco abuse Chronic pain with diabetic neuropathy Anxiety Plan: Chest pain possible unstable angina with history of CAD: Patient seen and evaluated by Cardiology today. Cardiology plans for heart catheterization this morning. Patient to receive Mucomyst. Will start IV fluids to improve renal function. Will consult nephrology to further assess and maximize renal function prior to heart catheterization. I will turn the service over to the daytime hospitalist team. They will continue coverage and management. Anticipate discharge likely in the next 24-48 hr pending heart catheterization results and clinical improvement. Acute on chronic renal failure stage 3: IV fluids initiated. Nephrology consulted to maximize renal function prior to heart catheterization. Diabetes mellitus type 2 insulin-dependent: Continue monitor Accu-Cheks. Continue insulin medication. Hypertension: Continue with medication. Will monitor and adjust appropriately. Hyperlipidemia: Continue with medication. Seizure disorder: Continue the medication. Tobacco abuse: Tobacco cessation education will be provided. Chronic pain with diabetic neuropathy: Continue with home medication. Anxiety: Will provide medication as needed Time Spent Managing Pts Care (In Minutes): 55
--- NOTE | 2019-01-04 00:14 | HP ---
Date of Admission: 01/03/2019 Reason For Admission: Chest pain. History Of Present Illness: This is a 53-year-old gentleman with extensive past medical history sign ificant for multiple medical problems, including seizure, diabetes, heart disease, hyperlipidemia DKA , presented to the emergency room with acute onset of chest pain that started at 4 a.m., woke up with chest pain and headache. Blood pressure was high. There was no radiation to the arm. Patient repo rted nausea, but no vomiting. He did not have much shortness of breath. The pain also radiated to h is jaw. Patient has extensive history of coronary artery disease with multiple stents placed. In th e emergency room he was evaluated and EKG was done and nitro given, Fentanyl IV as well. Cardiac enz yme was negative. BNP was slightly elevated at 2.6, admitted to be ruled out. Currently sitting in bed. He continues to have mild chest pain. He denies any shortness of breath. He denies any nausea or vomiting. His son is at the bedside and went to bring his medication list. Review of Systems: Otherwise negative. 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 Past Surgical History: Significant for cholecystectomy, left ACL repair. Social History: Patient is . He has 3 kids. He does smoke 1 pack a day for the last 20 year s on and off. He does not drink, only socially. Does not use any drugs. Family History: Father unknown. Mother alive at 80 with heart disease and hypertension. Allergies: CODEINE, MORPHINE, HYDROCODONE, ACETAMINOPHEN. Home Medications: Aspirin 81 mg once a day, Celexa 20 mg once a day, gabapentin 300 mg daily, lisino pril 20 mg daily, Plavix 75 mg daily, Zocor 80 mg daily, Lasix 40 mg twice a day, Aldactone 25 mg vianey ly, Keppra 500 mg daily, insulin Humulin 70/30, 80 units twice a day according to the patient; accord ing to the ER records, it is 100 units. Review of Systems: Patient denies any fevers, chills, night sweats shortness of breath. No cough or sputum. He has chest pain. There was no PND or orthopnea. He did have some mild dyspnea on exertion. Ther e was nausea, but no vomiting. No abdominal pain, diarrhea, constipation, dysuria, frequency, urgenc y, hematuria. There is no history of anxiety, but he has history of depression and seizure. Physical Examination: Vital Signs: Blood pressure is 103/56, weight 17, pulse 79, temperature 97.8. General: Patient is alert and oriented x3. Does not look in any distress. HEENT: Atraumatic, normocephalic. PERRLA. Oral mucosa is moist. Neck: Supple. No JVD. No bruit. Chest: Clear to auscultation. Good air entry. Heart: Regular rate and rhythm. S1, S2 normal. No gallop or murmur. Abdomen: Soft, nontender. No masses. Obese. Positive bowel sounds. Extremities: No clubbing, cyanosis, or edema. No calf tenderness. Neurologic: Grossly intact. Cranial nerve exam 2 through 12 intact. Normal sensation. Normal refl exes. Normal muscle strength. Laboratory Data: Labs in the emergency room showed CBC within normal, CMP was normal, except for BUN of 41, creatinine of 2.06, glucose of 426. Troponin negative. BNP of 226. Imaging Studies: EKG showed normal sinus rhythm with right bundle branch block. Chest x-ray done in the emergency room was unremarkable. Assessment And Plan: This is a 53-year-old gentleman with history of multiple medical problems, incl uding uncontrolled diabetes, hypertension, hyperlipidemia, coronary artery disease with multiple sten t, presented with chest pain. 1.Chest pain. Rule out myocardial infarction. We admitted patient to the floor, given aspirin. We will start him on loading dose of Plavix, Lovenox at 1 mg/kg once a day given his renal insufficienc y. Continue patient on nitro p.r.n. and Dilaudid for pain as the patient cannot tolerate morphine or oxycodone. Cardiology consult given his active chest pain to decide if cardiac enzyme is ruled out and maybe consider stress test in the morning. If cardiac exam is positive, then we will need cardia c cath as soon as possible. We will also continue patient on statin with Zocor. 2.Hyperosmolar nonketotic hyperglycemia with history of diabetes mellitus. Glucose was very high in the emergency room was given IV insulin and he is currently at sliding scale. 3.Hypertension. We will continue his home medication as before. 4.Diabetic retinopathy and neuropathy. Resume eyedrops from home. 5.History of cerebrovascular accident. No neuro deficits. 6.History of tobacco abuse. Advised to stop immediately. 7.History of seizure. Patient on Keppra 500 mg twice a day. We will resume that. MIESHA Voice ID: [id number]
[2019-01-04] MEDS: HEPARIN/D5W 25,000 UNIT/500 ML BAG IV SCH ×2 (00:35→15:26)
[2019-01-04 03:01] LABS: CKMB Creatine Kinase MB 12.9 ng/mL (0.3-3.6); Creatine Phosphokinase 317 U/L (39-308); Troponin I < 0.02 ng/mL (0.0-0.045)
[2019-01-04 05:14] LABS: Basophils % 1.3 % (0-1.3); Hematocrit 32.5 % (39.6-49.0); Lymphocytes % 48.2 % (15.3-44.8); MPV 10.7 fL (7.6-11.3)
[2019-01-04 05:23] LABS: HDL Cholesterol 29 mg/dL (40-60); LDL Cholesterol, Calculated ND (<130); Magnesium 2.2 mg/dL (1.8-2.4)
[2019-01-04 05:28] LABS: Potassium 4.4 mmol/L (3.5-5.1)
[2019-01-04 05:55] LABS: LDL, Direct 106 mg/dL (100-129)
[2019-01-04] MEDS: INSULIN 70/30 100 UNITS/ML SQ SCH ×2 (07:30→16:12)
[2019-01-04] MEDS: GABAPENTIN 300 MG CAP PO SCH ×2 (07:51→12:21)
[2019-01-04] MEDS: NICOTINE 21 MG/PAT TD SCH (07:51)
[2019-01-04] MEDS: ASPIRIN 81 MG CHEWABLE TABLET PO SCH (07:51)
[2019-01-04] MEDS: METOPROLOL TAR 50 MG TAB PO SCH ×2 (07:51→20:31)
[2019-01-04] MEDS: FOLIC ACID 1 MG TABLET PO SCH ×2 (07:51→12:22)
[2019-01-04] MEDS: levETIRAcetam 500 MG TAB PO SCH ×2 (07:51→12:22)
[2019-01-04] MEDS: FAMOTIDINE 20 MG TAB PO SCH (07:51)
[2019-01-04] MEDS: CITALOPRAM 10 MG TABLET PO SCH ×2 (07:51→12:22)
[2019-01-04] MEDS: HOME MED 1 EA UNK (Travoprost (Benzalkonium) [Travatan 0.004% Eye Drop] 1 DROP) EACH EYE SCH (07:52)
[2019-01-04] MEDS: VITAMIN D 5,000 UNIT CAP PO SCH ×2 (07:52→12:21)
--- NOTE | 2019-01-04 08:02 | EKG ---
Test Date: 2019-01-03 Test Time: 23:27:48 Wearing Apparel Presser: RT-O MEASUREMENT RESULTS: Intervals: Rate: 63 AK: 138 QRSD: 152 QT: 444 QTc: 454 [place]: P: 36 AK: 138 QRS: 81 T: 32 INTERPRETIVE STATEMENTS: Normal sinus rhythm Right bundle branch block Abnormal ECG Compared to ECG 01/03/2019 15:04:37 No significant changes Electronically Signed On 01-04-19 08:02:36 CDT by David Fabian
[2019-01-04] MEDS ORDERED: HEPA 1000U/500MLS 1,000 UNIT/500 ML BAG IV ONE (08:11)
[2019-01-04] MEDS ORDERED: NA CHLORIDE 0.9% 0 ML ONE (08:13)
[2019-01-04] MEDS ORDERED: ATROPINE SULF 1 MG/10 ML SYR IV ONE (08:13)
[2019-01-04] MEDS ORDERED: MIDAZOLAM HCL 2 MG/2 ML INJ ONE (08:13)
[2019-01-04] MEDS ORDERED: FENTANYL CITR 100 MCG/2 ML ONE (08:14)
[2019-01-04] MEDS: INSULIN -REGULAR HUMAN 50 UNIT/0.5 ML ML SQ SCH ×4 (08:29→20:32)
[2019-01-04] MEDS: ASPIRIN 325 MG TAB PO SCH (08:29)
[2019-01-04] MEDS: CLOPIDOGREL 75 MG TABLET PO SCH (08:29)
[2019-01-04] MEDS: ACETYLCYST 20% 800 MG/4 ML VIAL PO SCH ×2 (08:29→20:32)
[2019-01-04] MEDS ORDERED: FUROSEMIDE 40 MG TABLET PO SCH (09:00)
[2019-01-04] MEDS ORDERED: LISINOPRIL 10 MG TAB PO SCH (09:00)
[2019-01-04] MEDS ORDERED: ENOXAPARIN 100 MG/ML SYR SQ SCH (09:00)
[2019-01-04] MEDS ORDERED: CITALOPRAM 10 MG TABLET PO SCH (09:00)
[2019-01-04] MEDS: NITROGLYCERIN 0.4 MG/TAB SL PRN ×2 (09:21→20:14)
[2019-01-04] MEDS ORDERED: FENTANYL CITR 100 MCG/2 ML IV ONE ×2 (10:05→17:44)
[2019-01-04] MEDS: NA CHLORIDE 0.9% 1,000 ML IV SCH ×2 (12:45→16:27)
[2019-01-04 16:26] LABS: Urine Amorphous Sediment 2+ /HPF (NONE SEEN); Urine Bacteria <20 /HPF (NONE SEEN); Urine Culture Reflex Order NOT NEEDED
--- NOTE | 2019-01-04 16:58 | EKG ---
Test Date: 2019-01-03 Test Time: 06:05:46 Clinical Pharmacist: [email or web address] MEASUREMENT RESULTS: Intervals: Rate: 96 VA: 138 QRSD: 146 QT: 408 QTc: 515 [place]: P: 50 VA: 138 QRS: 123 T: -2 INTERPRETIVE STATEMENTS: Normal sinus rhythm Right bundle branch block Left posterior fascicular block Bifascicular block Abnormal ECG Compared to ECG 07/29/2018 22:45:56 Left posterior fascicular block now present Bifascicular block now present Electronically Signed On 01-04-19 16:55:32 CDT by Zion Colon
--- NOTE | 2019-01-04 16:58 | EKG ---
Test Date: 2019-01-03 Test Time: 08:49:15 Vice President Media Relations: [id number] MEASUREMENT RESULTS: Intervals: Rate: 81 MI: 130 QRSD: 142 QT: 398 QTc: 462 [place]: P: 24 MI: 130 QRS: 104 T: -1 INTERPRETIVE STATEMENTS: Normal sinus rhythm Right bundle branch block Abnormal ECG Compared to ECG 01/03/2019 06:05:46 Left posterior fascicular block no longer present Bifascicular block no longer present Electronically Signed On 01-04-19 16:55:31 CDT by Zion Colon
--- NOTE | 2019-01-04 17:43 | RAD REPORT ---
EXAM DESCRIPTION: US - Renal Ultrasound-Complete - 01/04/2019 5:05 pm CLINICAL HISTORY: Acute kidney injury superimposed on chronic GB disease COMPARISON: July 2018 FINDINGS: The right kidney measures 13.3 x 6.9 x 5.6 cm. The left kidney measures 13.4 x 7.3 x 5.6 cm. Allowing for differences in image selection and technique, no change in renal size since the Apri l comparison. Renal cortical thickness is normal. There is increased echogenicity indicating some com ponent of underlying medical renal disease. No hydronephrosis or suspicious renal mass. Small 10 mill imeter right renal cyst similar to comparison. No bladder wall thickening or mass. No intraluminal stone or mass. IMPRESSION: No hydronephrosis or suspicious renal mass. Mild medical renal disease changes are evident.
[2019-01-04] MEDS: GABAPENTIN 400 MG CAP PO SCH (20:31)
[2019-01-04] MEDS: ATORVASTATIN 80 MG TAB PO SCH (20:32)
[2019-01-05] MEDS: FENTANYL CITR 100 MCG/2 ML IV PRN ×3 (01:11→17:30)
--- NOTE | 2019-01-05 01:25 | PN ---
He was seen by Dr. Fabian on 01/03/2019 and set up for a heart catheterization for today, pending his creatinine. He had come in with chest pain consistent with unstable angina. Ruled out for GA. His creatinine, however, went from 2.2 to 2.8 overnight. I elected to cancel the catheterization for th at day pending Nephrology consult. Mucomyst is pending. We will resume his heparin until the decisi on is made regarding his catheterization. Continue medical therapy as is otherwise. GORGE/DOMINIC Voice ID: [id number] Report ID: [id number]
[2019-01-05] MEDS: NITROGLYCERIN 0.4 MG/TAB SL PRN (02:27)
--- NOTE | 2019-01-05 02:51 | CON ---
Date of Consultation: 01/04/2019 Chief Complaint: Acute on chronic kidney injury, nonoliguric. History Of Present Illness: The patient was found to have a progressively worse azotemia, creatinine level today is 2.8, BUN 49. Yesterday, on admission , creatinine was 2.29 and January 03 was 2.06. Patient has uncontrolled diabetes and history of chronic kidney disease stage 3, developed acute on chronic kidney injury with prerenal azotemia. He has nonoliguric urine output. He is admitted to ICU for chest pain and acute coronary syndrome. Troponin level was checked and BNP was evaluated. BNP was slightly elevated. Patient was started on diuretic. Patient has had been treated for hypertension with VICKI inhibitor, and VICKI inhibitor is on hold today due to acute kidney injury. The patient has kidney ultrasound to check for any evidence of obstructive uropathy. There is no hydronephrosis, no suspicious mass, although there is medical renal disease changes evident on ultrasound. Right kidney is 13.3 and left kidney 13.4 cm in length. Renal cortical thickness is normal. There is increased echogenicity indicative of chronic medical renal disease. There is small 10 mm right renal cyst similar to previous test. Patient was complaining of shortness of breath and chest discomfort and came to the hospital because of generalized weakness and was found to have DKA. Blood pressure was elevated and patient had chest pain radiating to both arms. Patient reported also nausea but no vomiting, no melena, and no hematemesis. Patient was medicated with Fentanyl for chest pain. Cardiac enzymes were negative. BNP was elevated and he was started on Lasix. Patient is feeling better today. Review of Systems: Constitutional: Denies fever, chills. Eyes: Denies vision changes. Ears, Nose, Mouth, and Throat: Denies sore throat, earache. Respiratory: Has some shortness of breath with activities. GI: Denies nausea, vomiting. : Denies dysuria, hematuria. Musculoskeletal: Denies muscle aches or joint swelling. Neurologic: no tremor , CN intact All other systems reviewed and all are negative. 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 Past Surgical History: Cholecystectomy. Social History: He is , has 3 children. Does smoke 1 pack per day for last 20 years. He does not drink, does not use drugs. Physical Examination: General: Patient is awake, alert. Follows commands. Eyes: Anicteric sclerae. EOMI. Ears, Nose, Mouth, and Throat: Oral mucosa moist. No pallor. Neck: Supple. No bruits. Lungs: Clear to auscultation bilaterally. No rhonchi. No wheezing. Heart: S1, S2. No pericardial friction rub. Abdomen: Soft, obese, benign, nontender. No rebound. No guarding. Extremities: No edema. No clubbing. No cyanosis. SKIN: warm and dry , no cellulitis Laboratory Work: Sodium 139, potassium 3.9, chloride 104, CO2 of 25. BUN 41, creatinine 2.06, glucose 427. CK-MB 12.2, CPK 308, troponin less than 0.02. Impression And Plan: 1. Acute on chronic kidney injury. Patient will have mild hydration. Patient has history of liver cirrhosis. Plan is to stop VICKI inhibitor. Continue to monitor blood pressure and adjust medication as needed. 2. Avoid nonsteroidal anti-inflammatory medication. 3. Patient is to have cardiac catheterization, although currently is on hold due to worsening of the renal function and risk of end-stage renal disease and has possible sequela of IV contrast in the setting of acute kidney injury. 4. Liver cirrhosis per primary team. 5. Hypertension. Continue low-sodium diet. Adjust medication. 6. Chest pain. Workup pending per document control associate. HANANE Voice ID: [id number] Report ID: [id number] JENNY
[2019-01-05 05:01] LABS: Absolute Lymphocytes (CBC) 1.9 K/uL (0.7-4.9); Basophils % 1.1 % (0-1.3); Hematocrit 33.8 % (39.6-49.0); Lymphocytes % 37.7 % (15.3-44.8); MPV 10.2 fL (7.6-11.3); RBC Red Blood Cell Count 3.73 M/uL (4.33-5.43)
[2019-01-05] MEDS: HEPARIN/D5W 25,000 UNIT/500 ML BAG IV SCH (05:20)
[2019-01-05 05:28] LABS: Magnesium 2.4 mg/dL (1.8-2.4); Potassium 4.9 mmol/L (3.5-5.1)
[2019-01-05] MEDS: INSULIN 70/30 100 UNITS/ML SQ SCH ×2 (07:30→17:28)
[2019-01-05] MEDS: levETIRAcetam 500 MG TAB PO SCH (08:32)
[2019-01-05] MEDS: CLOPIDOGREL 75 MG TABLET PO SCH (08:32)
[2019-01-05] MEDS: ASPIRIN 325 MG TAB PO SCH (08:33)
[2019-01-05] MEDS: ACETYLCYST 20% 800 MG/4 ML VIAL PO SCH (08:33)
[2019-01-05] MEDS: INSULIN -REGULAR HUMAN 50 UNIT/0.5 ML ML SQ SCH ×4 (08:35→21:23)
[2019-01-05] MEDS: METOPROLOL TAR 50 MG TAB PO SCH ×2 (09:00→21:22)
[2019-01-05] MEDS: NA CHLORIDE 0.9% 1,000 ML IV SCH ×2 (09:00→12:00)
[2019-01-05] MEDS: HOME MED 1 EA UNK (Travoprost (Benzalkonium) [Travatan 0.004% Eye Drop] 1 DROP) EACH EYE SCH (09:00)
[2019-01-05] MEDS: ASPIRIN 81 MG CHEWABLE TABLET PO SCH (09:00)
--- NOTE | 2019-01-05 10:37 | EKG ---
Test Date: 2019-01-04 Test Time: 20:06:03 Linter Operator: RT MEASUREMENT RESULTS: Intervals: Rate: 71 CT: 142 QRSD: 148 QT: 416 QTc: 452 [place]: P: 31 CT: 142 QRS: 85 T: -3 INTERPRETIVE STATEMENTS: Normal sinus rhythm Right bundle branch block Abnormal ECG Compared to ECG 01/03/2019 23:27:48 No significant changes Electronically Signed On 01-05-19 10:36:33 CDT by Zion Colon
[2019-01-05] MEDS ORDERED: ALPRAZOLAM 0.5 MG TABLET ONE (11:17)
[2019-01-05] MEDS ORDERED: HEPA 1000U/500MLS 1,000 UNIT/500 ML BAG IV ONE ×2 (11:52→12:10)
[2019-01-05] MEDS ORDERED: LIDOCAINE 1% MPF 30 ML VIAL ONE (12:10)
--- NOTE | 2019-01-05 12:32 | RAD REPORT ---
EXAM DESCRIPTION: MRI - Soft Tissue Neck W/O Cont - 01/05/2019 12:17 pm CLINICAL HISTORY: Neck swelling and pain COMPARISON: None TECHNIQUE: Unenhanced magnetic resonance imaging of the neck obtained. Coronal, sagittal and axial images obtained FINDINGS: Some of the images are degraded by patient motion artifact Patient has swelling within the right lateral neck. This area was marked. No underlying mass seen. The parotid and submandibular glands appear unremarkable. The parapharyngeal fat is clear. No gross abnormality of the airway seen. No abscess is not noted. IMPRESSION: No significant abnormality is seen to explain the swelling within the right lateral neck
--- NOTE | 2019-01-05 12:40 | RAD REPORT ---
EXAM DESCRIPTION: MRI - Brain Wo Cont - 01/05/2019 12:17 pm CLINICAL HISTORY: Numbness COMPARISON: July 2018 TECHNIQUE: Axial, sagittal, and coronal magnetic images of the brain were obtained. Contrast was not requested FINDINGS: A 2.5 millimeter area of increased signal is present within the right internal capsule hav ing the appearance of an lacunar infarction. . The ventricles are normal caliber. An extra-axial fluid collection is not present The sinuses and mastoids are clear. IMPRESSION: 2.5 millimeter acute/subacute lacunar infarct right internal capsule
[2019-01-05] MEDS ORDERED: NA CHLORIDE 0.9% 100 ML IV ONE (12:45)
[2019-01-05] MEDS ORDERED: MIDAZOLAM HCL 2 MG/2 ML INJ ONE (12:56)
[2019-01-05] MEDS ORDERED: FENTANYL CITR 100 MCG/2 ML ONE (12:57)
[2019-01-05] MEDS ORDERED: NA CHLORIDE 0.9% 0 ML ONE (12:57)
[2019-01-05] MEDS ORDERED: ATROPINE SULF 1 MG/10 ML SYR IV ONE (12:57)
--- NOTE | 2019-01-05 14:18 | P.PN ---
Subjective Date of Service: 01/05/19 Primary Care Provider: unknown Chief Complaint: Chest pain Pt seen and examined at bedside. C/o of having right sided Ear pain along with DANIEL. Pt c.o of having Ear itchiness. No fever or Chills. No other neurological Complains to offer Review of Systems 10-point ROS is otherwise unremarkable Physical Examination - Vital Signs Temperature: 98.4 F Blood Pressure: 135/65 Pulse: 70 Respirations: 17 Pulse Ox (%): 99 - Physical Exam General: Alert, In no apparent distress HEENT: Other (Right EAR with ruptured TM. No DC noted. right sided Facial Droop noted. ) Neck: Supple, JVD not distended Respiratory: Clear to auscultation bilaterally, Normal air movement Cardiovascular: Regular rate/rhythm, Normal S1 S2 Gastrointestinal: Normal bowel sounds, No tenderness Musculoskeletal: No tenderness Integumentary: No rashes Neurological: Normal speech, Normal tone, Normal affect Lymphatics: No axilla or inguinal lymphadenopathy - Studies Medications List Reviewed: Yes Assessment And Plan Discharge Plan: Home Plan to discharge in: Greater than 2 days - Code Status/Comfort Care Code Status Assessed: Yes Physician Review Additional Text: Impression/Plan: Unstable Angina -Troponin x 2 negative, EKG with nonspecific ST changes -Cardiology consulted. Appreciated Reccs -S/p Heart Cath - more than 3 vessel disease with Re-stenosis of Prior stents -Currently medical Mgmt only due to recent Stroke per Cardiology. -Family has requested to talk to Dr Oquendo, Dr Colon to touch base with Dr Oquendo and provide further reccs Acute/Subacute Stroke: -Pt with Ear pain this AM. -MRI + for 2.5mm Right Internal Capsule Infarct. -Not a candidate for TPA -Neurology consulted. -ASA, Plavix, Lipitor at this time Acute on chronic renal failure stage 3: -IV fluids for now -hold nephrotoxic agents -Nephrology consulted. Appreciated Reccs Diabetes mellitus type 2 insulin-dependent -Continue monitor Accu-Cheks. Continue insulin medication. Hypertension -Continue with medication. Will monitor and adjust appropriately. Hyperlipidemia -Continue with medication. Seizure disorder -Continue the medication. Tobacco abuse -Tobacco cessation education will be provided. Chronic pain with diabetic neuropathy -Continue with home medication. Anxiety -Will provide medication as needed Critical Care: No
--- NOTE | 2019-01-05 17:15 | RAD REPORT ---
EXAM DESCRIPTION: CT - Head Brain Wo Cont - 01/05/2019 4:57 pm CLINICAL HISTORY: Head injury status post fall. COMPARISON: July [address] TECHNIQUE: Computed axial tomography of the head was obtained. IV contrast was not requested. All CT scans are performed using dose optimization technique as appropriate and may include automated exposure control or mA/KV adjustment according to patient size. FINDINGS: Increased density is present along the right tentorium measuring 3 millimeters in thicknes s. This is not visualized on July [address] The ventricles are normal in caliber. No shift of midline structures. Fluid within the sinuses/ mastoids is not seen. IMPRESSION: Increased density along the right tentorium is suspicious for a very small acute subdura l hematoma. Patient's nurse Iliana notified 5:05 p.m. January 05, 2019
[2019-01-05] MEDS: ACETAMINOPHEN 500 MG TAB PO PRN (17:29)
[2019-01-05] MEDS: VITAMIN D 5,000 UNIT CAP PO SCH (17:31)
[2019-01-05] MEDS: FOLIC ACID 1 MG TABLET PO SCH (17:31)
[2019-01-05] MEDS: CITALOPRAM 10 MG TABLET PO SCH (17:31)
[2019-01-05] MEDS: GABAPENTIN 300 MG CAP PO SCH (17:31)
[2019-01-05] MEDS: NICOTINE 21 MG/PAT TD SCH (17:32)
[2019-01-05] MEDS ORDERED: ALPRAZOLAM 0.5 MG TABLET PO ONE (18:35)
[2019-01-05] MEDS ORDERED: FENTANYL CITR 100 MCG/2 ML IV ONE (18:35)
--- NOTE | 2019-01-05 20:03 | RAD REPORT ---
EXAM DESCRIPTION: CT - Abdomen Pelvis Wo Contrast - 01/05/2019 7:49 pm CLINICAL HISTORY: Abdominal pain COMPARISON: 2018 TECHNIQUE: Computed axial tomography of the abdomen and pelvis was obtained. IV and oral contrast we re not requested. All CT scans are performed using dose optimization technique as appropriate and may include automated exposure control or mA/KV adjustment according to patient size. FINDINGS: The evaluation of solid organs, vessels and bowel is limited secondary to the lack of con trast administration. Cirrhotic liver Spleen, pancreas, adrenals and kidneys appear grossly normal. The appendix is normal. There is no evidence of diverticulitis. No groan hematoma. No retroperitoneal hematoma. IMPRESSION: No acute abnormality is displayed.
[2019-01-05] MEDS: GABAPENTIN 400 MG CAP PO SCH (21:21)
[2019-01-05] MEDS: ATORVASTATIN 80 MG TAB PO SCH (21:23)
--- NOTE | 2019-01-05 23:48 | PN ---
Date of Progress Note: 01/04/2019 Subjective: Patient was admitted with non-ST elevation [place], hypertension, found to have elevation in BUN and creatinine. Patient underwent cardiac cath today. Physical Examination: Vital Signs: Blood pressure 153/84, pulse of 68. Chest: Clear to auscultation. Heart: S1-S2 regular. Abdomen: Soft, nontender. Extremities: No edema. Laboratory Data: WBC 5.1, H and H 12/38.8, platelet 129. Sodium 138, potassium 4.9, bicarb 26, BUN 42, creatinine 2.2, GFR of 31. Medications: Current medications the patient on, it includes aspirin, nicotine, Plavix, atorvastatin , Keppra, gabapentin, Zofran, insulin, IV fluid at 50 per hour. Assessment And Plan: 1.Chronic kidney disease secondary to diabetes nephropathy, normal-sized kidney with proteinuria sta tus post contrast. I am going to continue hydration for another 12, keep holding any VICKI inhibitor o r ARB. 2.Hypertension, controlled. Continue current medication. 3.Carotid artery disease with non-ST elevation GA. Follow up with Cardiology status post cardiac ca th. We will continue hydration. COCO Voice ID: [id number] Report ID: [id number]
--- NOTE | 2019-01-06 00:57 | OP ---
Date of Procedure: 01/05/2019 Surgeon: Zion Colon MD Summary: Mr. Wero Kwong was admitted on 01/03/2019 with ovw-VO-sctwvdcna myocardial infarction, renal failure, brought into the finishing lab technician today on 01/05/2019, and we had been awaiting for his creat inine to come down. It went down to 2.2. He received Mucomyst for renal protection. In the cath la b today, he was brought in as an inpatient, prepped and draped in the routine sterile fashion, given Versed and fentanyl for sedation. A 6-[place] sheath was introduced in the right common femoral arter y. A 3.5 Edith catheter 6-[place] introduced in the left main, a JR4 in the right main. The findin gs were 50% proximal, mid, and distal, and 70% distal RCA. Had an 80% stenosis in the distal circumf regi in 2 different spots. Had a 90% ostial OM2. His LAD had a 70% proximal, 80% mid severe disease, diffuse disease distally from the mid LAD stent that had an in-stent restenosis of 90% all the way d own to the apex with multiple stenosis. Blood vessel, probably about 1 to 1.5 mm in size. No compli cation. Blood Loss: 5 cc. Postoperative Diagnosis: Severe coronary artery disease, probably inoperable. Plan: To continue medical therapy for now and [facility] if [facility] is a [facility] for surgery. I will discuss the case further with Dr. Prince and Dr. Davis. GORGE/DOMINIC Voice ID: [id number] Report ID: [id number]
[2019-01-06] MEDS: FENTANYL CITR 100 MCG/2 ML IV PRN ×4 (01:27→15:19)
[2019-01-06 01:28] LABS: Urine Protein/Creatinine Ratio 6.25 ratio (<0.15)
[2019-01-06] MEDS: NITROGLYCERIN 0.4 MG/TAB SL PRN (03:03)
[2019-01-06 04:48] LABS: Absolute Lymphocytes (CBC) 1.7 K/uL (0.7-4.9); Hematocrit 33.7 % (39.6-49.0); Lymphocytes % 33.4 % (15.3-44.8); MPV 10.2 fL (7.6-11.3); RBC Red Blood Cell Count 3.74 M/uL (4.33-5.43)
[2019-01-06] MEDS ORDERED: ALPRAZOLAM 0.5 MG TABLET PO ONE (04:48)
[2019-01-06] MEDS: NA CHLORIDE 0.9% 1,000 ML IV SCH (05:00)
[2019-01-06 05:02] LABS: Albumin 2.3 g/dL (3.4-5.0); Magnesium 2.2 mg/dL (1.8-2.4); Phosphorus 3.3 mg/dL (2.5-4.9); Potassium 4.8 mmol/L (3.5-5.1)
[2019-01-06 05:13] VITALS: TEMP 98.4
[2019-01-06 05:19] VITALS: BMI 34.9
[2019-01-06] MEDS ORDERED: TRAVOPROST 0.004% EACH EYE SCH (09:00)
[2019-01-06] MEDS ORDERED: EYE EACH EYE SCH (09:00)
--- NOTE | 2019-01-06 09:14 | RAD REPORT ---
EXAM DESCRIPTION: CT - Head Brain Wo Cont - 01/06/2019 8:54 am CLINICAL HISTORY: Head injury status post fall COMPARISON: January 05, 2019 TECHNIQUE: Computed axial tomography of the head was obtained. IV contrast was not requested. All CT scans are performed using dose optimization technique as appropriate and may include automated exposure control or mA/KV adjustment according to patient size. FINDINGS: Very small increased density along the right tentorium has mostly resolved. The ventricles are normal in caliber. No other significant change. IMPRESSION: The suspected very small subdural hematoma along right tentorium has mostly resolved
[2019-01-06] MEDS: NICOTINE 21 MG/PAT TD SCH (09:33)
--- NOTE | 2019-01-06 09:34 | P.PN ---
Subjective Date of Service: 01/09/19 Primary Care Provider: unknown Chief Complaint: Chest pain Patient this complaining of right-sided headache. No change in mental status. No weakness noted. He remained alert and oriented. Blood sugar readings have better. Review of Systems 10-point ROS is otherwise unremarkable ENT: Ear Pain (Right ear pain.) Physical Examination - Vital Signs Temperature: 98.4 F Blood Pressure: 164/89 Pulse: 76 Respirations: 16 Pulse Ox (%): 97 - Physical Exam General: Alert, In no apparent distress HEENT: Atraumatic, PERRLA, EOMI Neck: Supple, JVD not distended Respiratory: Clear to auscultation bilaterally, Normal air movement Cardiovascular: Regular rate/rhythm, Normal S1 S2 Gastrointestinal: Normal bowel sounds, No tenderness Musculoskeletal: No tenderness Integumentary: No rashes Neurological: Normal speech, Normal tone, Normal affect, Other (Left facial droop.) Lymphatics: No axilla or inguinal lymphadenopathy - Studies Medications List Reviewed: Yes Assessment And Plan - Current Problems (Diagnosis) (1) Subdural hematoma, acute Status: Acute Plan: Neurology input appreciated. Patient recommended to be transferred to a tertiary hospital to be seen by a neurosurgery. Transferred to [facility] is pending bed availability. Serial CT head Neuro checks Avoid anticoagulants, avoid aspirin and Plavix for now. Pain control. (2) Acute CVA (cerebrovascular accident) Status: Acute Plan: Patient also noted to have subdural hematoma. Aspirin and Plavix discontinued due to subdural hematoma. Blood pressure control. The patient awaiting transfer to [facility] for management of his multiple acute neurologic problems. (3) DKA (diabetic ketoacidoses) Status: Acute Plan: Continue Novolin 70/30 80 units b.i.d. and adjust as needed to keep FSGS less than 200. Insulin sliding scale Fingerstick glucose monitoring Qualifiers: Diabetes mellitus type: type 2 Diabetes mellitus complication detail: without coma Qualified Code(s): E11.10 - Type 2 diabetes mellitus with ketoacidosis without coma (4) Unstable angina Status: Acute Plan: Cardiology input appreciated. Medical management recommended for now. Aspirin and Plavix discontinued due to subdural hematoma. Beta-ramy, statins. NTG as needed. (5) Coronary artery disease Onset Date: 03/13/18 Status: Chronic Qualifiers: (6) Acute renal failure superimposed on stage 3 chronic kidney disease Status: Acute Plan: Nephrology recommendation appreciated Continue IV hydration. Avoid nephrotoxis Continue to monitor renal function. (7) Seizure disorder Status: Chronic Plan: Continue oral Keppra (8) Subdural hematoma Status: Acute - Code Status/Comfort Care Code Status Assessed: Yes Code Status: Full Code
[2019-01-06] MEDS: INSULIN -REGULAR HUMAN 50 UNIT/0.5 ML ML SQ SCH ×2 (09:35→12:38)
[2019-01-06] MEDS: INSULIN 70/30 100 UNITS/ML SQ SCH (09:35)
[2019-01-06] MEDS: levETIRAcetam 500 MG TAB PO SCH (09:36)
[2019-01-06] MEDS: CITALOPRAM 10 MG TABLET PO SCH (09:36)
[2019-01-06] MEDS: METOPROLOL TAR 50 MG TAB PO SCH (09:36)
[2019-01-06] MEDS: GABAPENTIN 300 MG CAP PO SCH (09:37)
[2019-01-06] MEDS: FOLIC ACID 1 MG TABLET PO SCH (09:37)
[2019-01-06] MEDS: VITAMIN D 5,000 UNIT CAP PO SCH (09:37)
[2019-01-06] MEDS ORDERED: METOPROLOL TAR 25 MG TAB PO ONE (12:17)
--- NOTE | 2019-01-06 14:40 | PN ---
Date of Progress Note: 01/06/2019 Subjective: The patient was admitted with non-ST elevation [place], CVA. The patient was treated, status post cardiac cath yesterday, tolerated well. The patient is feeling well, chest pain free. Physical Examination: Vital Signs: When I saw the patient, blood pressure 164/89, pulse of 76. Chest: Clear to auscultation. Heart: S1, S2 regular. Abdomen: Soft, nontender. Extremities: No edema. Neuro: Alert and oriented. Laboratory Data: WBC 5.1, H and H 12.1/33.7, platelets 137. Sodium 143; potassium 4.8; bicarb 25; B UN 34; creatinine 1.8, trending down. GFR 39, calcium 8, phosphorus 3.3, magnesium 2.2, albumin 2.3, corrected calcium is 9.2. PTH 131, PC ratio is 6 g. Current Medications: The patient on include. 1.Aspirin. 2.Plavix. 3.Atorvastatin. 4.Metoprolol 50 b.i.d. 5.Citalopram. 6.Gabapentin. 7.Keppra. 8.Folic acid. 9.Normal saline at 50 per hour. Assessment And Plan: 1.Acute kidney injury on chronic kidney disease, normal-sized kidney, nephrotic range proteinuria se condary to cardiorenal, recovered; poor perfusion; ATN; status post cardiac cath; being on IV fluid f or more than 24 hours from the cath. I am going to discontinue IV fluid and we will monitor the virginie ent. 2.Nephrotic range proteinuria, mostly secondary to diabetes. I am going to send for a full serology workup for completion of his workup even though that I doubt it is autoimmune giving the improvement in the kidney function without any treatment. 3.Hypertension, not controlled. I am going to go ahead and increase metoprolol to 75 mg. Unfortuna tely, I cannot add VICKI inhibitor or ARB for the time being. We will monitor. 4.Secondary hyperparathyroidism. PTH, calcium, and phosphorus in the goal. No need for vitamin D f or the time being. 5.Diabetes as by primary. 6.Cerebrovascular accident as by primary. 7.Colon artery disease, non-ST elevation [place]. Followup with Cardiology. CHLOE/DOMINIC Voice ID: [id number] Report ID: [id number]
[2019-01-06 16:25] VITALS: O2SAT 96
--- NOTE | 2019-01-06 17:07 | P.DS ---
Admission Date: 01/03/19 Discharge Date: 01/06/19 Primary Care Provider: unknown Disposition: TRANSFER TO [facility] Reason for Admission: Chest pain Consultations: Nephrology Neurology Cardiology - Problems (1) Subdural hematoma, acute Current Visit: Yes Status: Acute (2) Acute CVA (cerebrovascular accident) Current Visit: Yes Status: Acute (3) DKA (diabetic ketoacidoses) Current Visit: No Status: Acute Qualifiers: Diabetes mellitus type: type 2 Diabetes mellitus complication detail: without coma Qualified Code(s): E11.10 - Type 2 diabetes mellitus with ketoacidosis without coma (4) Unstable angina Current Visit: Yes Status: Acute (5) Coronary artery disease Onset Date: 03/13/18 Current Visit: No Status: Chronic Qualifiers: (6) Acute renal failure superimposed on stage 3 chronic kidney disease Current Visit: Yes Status: Acute (7) Seizure disorder Current Visit: Yes Status: Chronic (8) Subdural hematoma Current Visit: Yes Status: Acute Brief History of Present Illness: 53-year-old gentleman with an extensive history of coronary disease, presented to the emergency department with a complaint of chest pain, intermittent in nature. He has a history of multiple cardiac stent. Initial troponin was negative. EKG demonstrated normal sinus rhythm with right bundle branch block and nondiagnostic for ischemia. Patient was admitted for further evaluation of the chest pain. Hospital Course: Patient was admitted, troponin trended came back negative. Because of his high cardiac risk factors and recurrent nature of his chest pain, cardiology was consulted and cardiac catheterization performed. Patient noted to have multiple vessel occlusions including LAD mid stent restenoses. Medical management was recommended by cardiology. His serum creatinine increased prior to cardiac catheterization. Patient hydrated with IV fluids. His serum creatinine trended down with the IV hydration. He complained of right-sided ear pain, CT head followed by MRI of the brain was performed which reported 2.5 millimeter acute/subacute lacunar infarct right internal capsule. He was subsequently placed on aspirin and plavix. He fell and hit his head on a wall while using the bedside commode. Repeat CT head demonstrated a subdural hematoma. Aspirin and Plavix were then discontinued. Transfer to [facility] to be evaluated by a neurosurgeon was then recommended. He has been accepted for transfer to [facility] [place]. His vital signs are stable patient and deemed stable for transfer. Vital Signs/Physical Exam: Temp Pulse Resp BP Pulse Ox 98.4 F 74 20 153/71 H 96 01/06/19 15:50 01/06/19 15:50 01/06/19 15:50 01/06/19 15:50 01/06/19 15:19 General: Alert, In no apparent distress, Oriented x3 HEENT: Normocephalic, PERRLA Neck: Supple Respiratory: Clear to auscultation bilaterally, Normal air movement Cardiovascular: No edema, Normal pulses, Regular rate/rhythm, Normal S1 S2 Gastrointestinal: Normal bowel sounds, Soft and benign Musculoskeletal: No clubbing, No swelling Neurological: Normal strength at 5/5 x4 extr, Normal reflexes 2+, Other (Right facial droop) Laboratory Data at Discharge: WBC 5.1 K/uL (4.3-10.9) 01/06/19 04:34 Hgb 12.1 g/dL (13.6-17.9) L 01/06/19 04:34 Hct 33.7 % (39.6-49.0) L 01/06/19 04:34 Plt Count 137 K/uL (152-406) L 01/06/19 04:34 PT 10.5 SECONDS (9.5-12.5) 01/03/19 06:14 INR 0.89 01/03/19 06:14 APTT 76.5 SECONDS (24.3-36.9) H 01/05/19 04:41 Sodium 143 mmol/L (136-145) 01/06/19 04:34 Potassium 4.8 mmol/L (3.5-5.1) 01/06/19 04:34 BUN 34 mg/dL (7-18) H 01/06/19 04:34 Creatinine 1.82 mg/dL (0.55-1.3) H 01/06/19 04:34 Glucose 203 mg/dL (74-106) H 01/06/19 04:34 Uric Acid 9.6 mg/dL (3.5-7.2) H 01/04/19 13:00 Phosphorus 3.3 mg/dL (2.5-4.9) 01/06/19 04:34 Magnesium 2.2 mg/dL (1.8-2.4) 01/06/19 04:34 Total Bilirubin 0.3 mg/dL (0.2-1.0) 01/03/19 12:42 AST 20 U/L (15-37) 01/03/19 12:42 ALT 33 U/L (12-78) 01/03/19 12:42 Alkaline Phosphatase 105 U/L (45-117) 01/03/19 12:42 Troponin I < 0.02 ng/mL (0.0-0.045) 01/04/19 02:07 Triglycerides 567 mg/dL (<150) H 01/04/19 04:28 Cholesterol 186 mg/dL (<200) 01/04/19 04:28 LDL Cholesterol Direct 106 mg/dL (100-129) 01/04/19 04:28 HDL Cholesterol 29 mg/dL (40-60) L 01/04/19 04:28 Cholesterol/HDL Ratio 6.41 01/04/19 04:28 Home Medications: Aspirin 1 tab PO DAILY 01/03/19 Citalopram Hydrobromide [Citalopram HBr] 1 tab PO DAILY 01/03/19 Clopidogrel Bisulfate [Plavix*] 1 tab PO DAILY 01/03/19 Furosemide [Lasix*] 1 tab PO BID 01/03/19 Gabapentin 1,200 mg PO BEDTIME 01/03/19 Gabapentin 1,800 mg PO DAILY 01/03/19 Levetiracetam [Keppra] 2 tab PO DAILY 01/03/19 Lisinopril [Prinivil*] 10 mg PO DAILY 01/03/19 Simvastatin 40 mg PO DAILY 01/03/19 Spironolactone [Aldactone*] 1 tab PO DAILY 01/03/19 Travoprost (Benzalkonium) [Travatan 0.004% Eye Drop] 1 drop EACH EYE DAILY 01/03
[2019-01-06] MEDS ORDERED: METOPROLOL TAR 25 MG TAB PO SCH (21:00)
--- NOTE | 2019-01-06 22:04 | PN ---
Date of Progress Note: 01/06/2019 Mr. Kwong had a catheterization yesterday showing probably inoperable coronary artery disease, very s evere coronary artery disease in the LAD, circumflex, and RCA. The films are being reviewed for poss ible candidacy for bypass surgery or intervention. Overnight, he did good. No chest pain. Telemetr y showed normal sinus rhythm. Glucose was 326. Right groin is intact without any hematoma. We will continue present medical regimen. Nephrology is following him. His creatinine is 1.82 after the ca theterization. He had received Mucomyst. We will continue to follow him. He can probably move to t elemetry whenever it is okay with the primary care physician. GORGE/DOMINIC Voice ID: [id number] Report ID: [id number]
[2019-01-08 16:09] LABS: HIV AG/AB 4TH GEN Non-reactive (Non-reactive)
[2019-01-09 20:02] VITALS: BP 164/89
[2019-01-12 21:18] LABS: Albumin, (SPE) 2.7 g/dL (3.8-4.8); Alpha-1-Globulins 0.2 g/dL (0.2-0.3); Alpha-2-Globulins 0.7 g/dL (0.5-0.9); Gamma Globulins 0.6 g/dL (0.8-1.7); INTERPRETATION Consistent with
== END 2019-01-06 15:50 | disposition short-term general hospital (02) | DRG 280 ==
LOC: ER 05:57 → OBSVTOIN 12:01 → 4TH 12:01 → 3RD-ICU 15:37
PROVIDERS: ADMIT Internal Medicine; ATTEND Internal Medicine
PROC: 4A023N7 Measurement of Cardiac Sampling and Pressure, Left Heart, Percutaneous Approach (ICD-10-PCS; principal; 2019-01-05)
PROC: B201YZZ Plain Radiography of Multiple Coronary Arteries using Other Contrast (ICD-10-PCS; 2019-01-05)
PROC: B205YZZ Plain Radiography of Left Heart using Other Contrast (ICD-10-PCS; 2019-01-05)
DX: I21.4 Non-ST elevation (NSTEMI) myocardial infarction (principal); E11.10 Type 2 diabetes mellitus with ketoacidosis without coma; I63.9 Cerebral infarction, unspecified; I62.01 Nontraumatic acute subdural hemorrhage; B15.9 Hepatitis A without hepatic coma; E87.0 Hyperosmolality and hypernatremia; N17.9 Acute kidney failure, unspecified; N25.81 Secondary hyperparathyroidism of renal origin; I25.110 Atherosclerotic heart disease of native coronary artery with unstable angina pectoris; K74.60 Unspecified cirrhosis of liver; E11.40 Type 2 diabetes mellitus with diabetic neuropathy, unspecified; E11.319 Type 2 diabetes mellitus with unspecified diabetic retinopathy without macular edema; I50.9 Heart failure, unspecified; E78.5 Hyperlipidemia, unspecified; G40.909 Epilepsy, unspecified, not intractable, without status epilepticus; E11.22 Type 2 diabetes mellitus with diabetic chronic kidney disease; I12.9 Hypertensive chronic kidney disease with stage 1 through stage 4 chronic kidney disease, or unspecified chronic kidney disease; N18.3 Chronic kidney disease, stage 3 (moderate); F41.9 Anxiety disorder, unspecified; G89.29 Other chronic pain; E11.65 Type 2 diabetes mellitus with hyperglycemia; R29.703 NIHSS score 3; F17.200 Nicotine dependence, unspecified, uncomplicated; Z86.73 Personal history of transient ischemic attack (TIA), and cerebral infarction without residual deficits
CPT/HCPCS: 36415; 70450; 70540; 70551; 71045; 74176; 76770; 80048; 80053; 80061; 80069; 81003; 81015; 82550; 82553; 82570; 82962; 83735; 83880; 83970; 84156; 84165; 84484; 84550; 85025; 85610; 85730; 86335; 87389; 93005; 93458; 96372; 96374; 96375; 99285; C1893; J0583; J1170; J1650; J2250; J2405; J3010; J7030

== ENCOUNTER 2019-01-26 15:06 | Emergency (ER) | payer SELFPAY ==
[2019-01-26] MEDS ORDERED: NA CHLORIDE 0.9% 500 ML ONE ×2 (15:35→16:48)
[2019-01-26 15:52] LABS: Absolute Lymphocytes (CBC) 1.8 K/uL (0.7-4.9); Basophils % 2.1 % (0-1.3); Hematocrit 34.8 % (39.6-49.0); Lymphocytes % 28.2 % (15.3-44.8); RBC Red Blood Cell Count 3.87 M/uL (4.33-5.43)
[2019-01-26 16:06] LABS: Protime INR 0.92
--- NOTE | 2019-01-26 16:11 | RAD REPORT ---
EXAM DESCRIPTION: CT - Head Brain Wo Cont - 01/26/2019 3:52 pm CLINICAL HISTORY: Dizziness COMPARISON: 01/06/2019 TECHNIQUE: Computed axial tomography of the head was obtained. IV contrast was not requested. All CT scans are performed using dose optimization technique as appropriate and may include automated exposure control or mA/KV adjustment according to patient size. FINDINGS: Small subdural hematoma along the right tentorium appears resolved. The ventricles are normal in caliber. No extra-axial fluid collection is noted. Fluid within the sinuses/ mastoids is not seen. IMPRESSION: No acute intracranial abnormality is seen. If patient's symptoms persist MRI of the bra in would be recommended.
--- NOTE | 2019-01-26 16:21 | EKG ---
Test Date: 2019-01-26 Test Time: 15:09:55 Travel Attendants: SHOSHANA MEASUREMENT RESULTS: Intervals: Rate: 68 RI: 138 QRSD: 156 QT: 476 QTc: [address]: P: 38 RI: 138 QRS: 116 T: 26 INTERPRETIVE STATEMENTS: Normal sinus rhythm Right bundle branch block Abnormal ECG Compared to ECG 01/04/2019 20:06:03 no significant change from previous ECG Electronically Signed On 01-26-19 16:20:17 CDT by David Fabian
[2019-01-26 16:26] LABS: ALT/SGPT 26 U/L (12-78); AST/SGOT 14 U/L (15-37); Albumin 2.7 g/dL (3.4-5.0); Alkaline Phosphatase 112 U/L (45-117); BUN Blood Urea Nitrogen 54 mg/dL (7-18); Bicarbonate 18 mmol/L (21-32); Bilirubin Direct < 0.1 mg/dL (0-0.2); Bilirubin Total 0.3 mg/dL (0.2-1.0); Lipase 190 U/L (73-393); Potassium 3.6 mmol/L (3.5-5.1); Protein, Total 6.3 g/dL (6.4-8.2); Sodium Level 137 mmol/L (136-145); Troponin (Emerg Dept Use Only) < 0.02 ng/mL (0.0-0.045)
[2019-01-26 16:35] LABS: Glucose Level 453 mg/dL (74-106)
--- NOTE | 2019-01-26 16:36 | RAD REPORT ---
EXAM DESCRIPTION: Noah Single View01/26/2019 4:20 pm CLINICAL HISTORY: Chest pain COMPARISON: December 2018 FINDINGS: The lungs appear clear of acute infiltrate. The heart is normal size. Right hemidiaphragm remains mildly elevated IMPRESSION: No acute abnormalities displayed
[2019-01-26] MEDS ORDERED: NA CHLORIDE 0.9% 1,000 ML ONE (16:37)
[2019-01-26] MEDS ORDERED: INSULIN -REGULAR HUMAN 50 UNIT/0.5 ML ML ONE ×2 (16:51→18:26)
[2019-01-26] MEDS ORDERED: POTASSIUM CL SA 10 MEQ TAB PO ONE (18:39)
--- NOTE | 2019-01-26 18:43 | ER ---
Nurse's Notes [facility] Name: Wreo Kwong Sr Age: 53 yrs Sex: Male : 1965 Arrival Date: 01/26/2019 Time: 15:08 Bed 5 Private MD: Diagnosis: Dizziness and giddiness;Dehydration;Hyperglycemia, unspecified;Chest pain, unspecified Presentation: 01/26 15:09 Presenting complaint: EMS states: pt c/o dizziness and nausea that started 30 minutes tw2 ago, he is also complaining of sharp back pain that radiates to chest, he said he did vomit prior to our arrive, pt is hypotensive, 89/52, BGL 449 mg/dL. Transition of care: patient was not received from another setting of care. Onset of symptoms was January 26, 2019. Risk Assessment: Do you want to hurt yourself or someone else? Patient reports no desire to harm self or others. Initial Sepsis Screen: Does the patient meet any 2 criteria? Systolic BP < 90 mmHg. Does the patient have a suspected source of infection? No. Patient's initial sepsis screen is negative. Care prior to arrival: Medication(s) given: Normal saline infusion, approx 200 ml NS infused in at this time, IV initiated. 18 GA, in the right antecubital area, Glucose check: 449. 15:09 Method Of Arrival: EMS: [facility] tw2 15:09 Acuity: MARIA DEL ROSARIO 2 tw2 Triage Assessment: 15:14 General: Appears in no apparent distress. Behavior is calm, cooperative, appropriate tw2 for age. Pain: Complains of pain in back Pain radiates to chest. Neuro: Level of Consciousness is awake, alert, obeys commands, Oriented to person, place, time, situation. 15:43 GI: Parent/caregiver reports the patient having vomiting, prior to arrival. tw2 15:44 GI: Reports vomiting. tw2 Historical: - Allergies: 15:17 Codeine; sg 15:17 Hydrocodone-Acetaminophen; sg 15:17 Morphine; sg - Home Meds: 15:17 levetiracetam 500 mg Oral tab 2 tabs daily [Active]; furosemide 40 mg Oral tab 1 tab 2 sg times per day [Active]; clopidogrel 75 mg oral tab 1 tab once daily [Active]; spironolactone 25 mg Oral tab 1 tab once daily [Active]; simvastatin 40 mg oral tab 1 tab once daily [Active]; acetazolamide 500 mg Oral cpER 1 cap 2 times per day [Active]; lisinopril 10 mg oral tab 1 tab once daily [Active]; gabapentin 300 mg Oral cap 6 caps Take 6 capsules by mouth every morning and 4 every evening [Active]; citalopram 20 mg tab 1 tab once daily [Active]; travatan eye drops [Active]; 15:44 Humulin 70/30 100 unit/mL (70-30) Sub-Q susp [Active]; Plavix 75 mg Oral tab 1 tab once tw2 daily [Active]; aspirin 81 mg Oral TbEC 1 tab once daily [Active]; - PMHx: 15:17 CAD; CVA; Diabetes - IDDM; High Cholesterol; Hypertension; Myocardial infarction; sg neuropathy; Seizures; - PSHx: 15:17 cardiac stents; Cholecystectomy; sg - Immunization history:: Adult Immunizations. - Social history:: Smoking status: . - Ebola Screening: : Patient denies travel to an Ebola-affected area in the 21 days before illness onset. - Family history:: not pertinent. - Hospitalizations: : The patient was recently seen at [facility], Patient was recently seen at [facility]. Screenin:13 Abuse screen: Denies threats or abuse. Nutritional screening: No deficits noted. tw2 Tuberculosis screening: No symptoms or risk factors identified. Fall Risk Secondary diagnosis (15 points) CVA. Assessment: 15:42 General: Appears in no apparent distress. well groomed, well developed, well nourished, sg Behavior is calm, cooperative, appropriate for age. Pain: Complains of pain in back Pain radiates to chest Quality of pain is described as aching. Neuro: Level of Consciousness is awake, alert, obeys commands, Oriented to person, place, time, Area Supervisor are equal bilaterally Moves all extremities. Full function Gait is steady, Speech is normal, Facial droop on left, Pupils are PERRLA. Cardiovascular: Heart tones S1 S2 present Chest pain is denied. Respiratory: Airway is patent Respiratory effort is even, unlabored, Respiratory pattern is regular, symmetrical. GI: Abdomen is round non-distended. : No signs and/or symptoms were reported regarding the genitourinary system. EENT: No signs and/or symptoms were reported regarding the EENT system. Derm: Skin is intact, is healthy with good turgor, Skin is dry, Skin is normal, Skin temperature is warm. Musculoskeletal: Circulation, motion, and sensation intact. Range of motion: intact in all extremities, Swelling absent. 16:14 Reassessment: Patient appears in no apparent distress at this time. Patient and/or tw2 family updated on plan of care and expected duration. Pain level reassessed. Patient is alert, oriented x 3, equal unlabored respirations, skin warm/dry/pink. 17:06 Reassessment: Patient appears in no apparent distress at this time. Patient and/or tw2 family updated on plan of care and expected duration. Pain level reassessed. Patient is alert, oriented x 3, equal unlabored respirations, skin warm/dry/pink. 18:04 Reassessment: Patient appears in no apparent distress at this time. Patient and/or tw2 family updated on plan of care and expected duration. Pain level reassessed. Patient is alert, oriented x 3, equal unlabored respirations, skin warm/dry/pink. Patient states feeling better. 19:06 Reassessment: Patient appears in no apparent distress at this time. Patient and/or tw2 family updated on plan of care and expected duration. Pain level reassessed. Patient is alert, oriented x 3, equal unlabored respirations, skin warm/dry/pink. Patient states feeling better. Vital Signs: 15:11 BP 82 / 57; Pulse 68; Resp 17; Temp 98.0(O); Pulse Ox 95% on R/A; Weight 98.43 kg (R); tw2 Height 5 ft. 7 in. (170.18 cm) (R); Pain 8/10; 16:14 BP 95 / 50; Pulse 71; Resp 17; Pulse Ox 96% on R/A; tw2 17:05 BP 108 / 67; Pulse 71; Resp 17; Pulse Ox 97% on R/A; tw2 18:04 BP 125 / 64; Pulse 78; Resp 17; Pulse Ox 97% on R/A; tw2 15:11 Body Mass Index 33.99 (98.43 kg, 170.18 cm) tw2 15:11 provider aware of BP at this time. tw2 ED Course: 15:08 Patient arrived in ED. tw2 15:09 Bed in low position. Call light in reach. Side rails up X2. roof tile layer on. Pulse tw2 ox on. NIBP on. 15:11 Triage completed. tw2 15:11 Osito Rehman MD is Attending Physician. rn 15:11 Arm band placed on. EKG completed in triage. Results shown to MD. tw2 15:11 Maintain EMS IV. Dressing intact. Good blood return noted. Site clean \T\ dry. Gauge \T\ tw 2 site: 18 g RIGHT ac. 15:15 EKG done, by timber management technician. reviewed by Osito Rehman MD. sm3 15:30 Leslye Calderon, HAYLEE is Primary Nurse. tw2 15:38 Lactate Sent. tw2 15:39 AMMONIA Sent. tw2 15:52 CT completed. Patient tolerated procedure well. Patient moved back from CT. md 15:53 CT Head Brain wo Cont In Process Unspecified. EDMS 16:13 CRITICAL LAB: glucose 453 mg/dL, provider notified. tw2 16:17 Notified ED physician of a critical lab result(s). Lactate 2.8. tw2 16:18 XRAY Chest (1 view) In Process Unspecified. EDMS 18:05 Repeat lab(s) drawn. by ED staff, sent to lab. sg 18:05 Basic Metabolic Panel Sent. tw2 18:06 Troponin (emerg Dept Use Only) Sent. tw2 18:06 Lactate Sent. tw2 19:06 No provider procedures requiring assistance completed. IV discontinued, intact, tw2 bleeding controlled, No redness/swelling at site. Pressure dressing applied. Administered Medications: 15:39 Drug: NS 0.9% 500 ml Route: IV; Rate: bolus; Site: right antecubital; tw2 16:56 Follow up: Response: No adverse reaction; IV Status: Completed infusion; IV Intake: sg 500ml 16:37 Drug: NS 0.9% 1000 ml Route: IV; Rate: 1000 ml; Site: right antecubital; tw2 17:58 Follow up: Response: No adverse reaction; IV Status: Completed infusion; IV Intake: tw2 1000ml 16:53 Drug: Insulin Regular Human 5 units {Co-Signature: tw2 (Leslye Calderon RN).} Route: IVP; sg Site: right antecubital; 18:01 Follow up: Response: No adverse reaction; Blood sugar is lowered tw2 16:55 Drug: Insulin Regular Human 10 units {Co-Signature: tw2 (Leslye Calderon RN).} Route: Sub-Q; sg Site: right lower abdomen; 18:00 Follow up: Response: No adverse reaction; Blood sugar is lowered tw2 16:56 Drug: NS 0.9% 500 ml Route: IV; Rate: bolus; Site: right antecubital; sg 17:58 Follow up: Response: No adverse reaction; IV Status: Completed infusion; IV Intake: tw2 500ml 18:26 Drug: Insulin Regular Human 10 units {Co-Signature: sg (Loki Miranda RN).} Route: IVP; tw2 Site: right antecubital; 19:06 Follow up: Response: No adverse reaction tw2 18:39 Drug: Potassium Chloride 40 mEq Route: PO; tw2 19:06 Follow up: Response: No adverse reaction tw2 19:05 Drug: LoMOTIL 2 tabs Route: PO; tw2 19:06 Follow up: Response: No adverse reaction tw2 Intake: 16:56 IV: 500ml; Total: 500ml. sg 17:58 IV: 1000ml; Total: 1500ml. tw2 17:58 IV: 500ml; Total: 2000ml. tw2 Outcome: 18:42 Discharge ordered by . rn 19:06 Patient left the ED. tw2 19:06 Discharged to home via wheelchair, with significant other. tw2 19:06 Condition: stable 19:06 Discharge instructions given to patient, family, significant other, Instructed on discharge instructions, follow up and referral plans. medication usage, Demonstrated understanding of instructions, follow-up care, medications, Prescriptions given X 1. Signatures: Dispatcher [employer] EDMS Loki Miranda RN RN sg Osito Rehman MD MD rn Wise, Tara, RN RN tw2 Oumar Vazquez [facility] Leslye Caldreon RN tw2 Loki Miranda RN sg Corrections: (The following items were deleted from the chart) 15:43 15:14 EENT: No signs and/or symptoms were reported regarding the EENT system. tw2 tw2 15:43 15:14 Cardiovascular: Heart tones S1 S2 Patient's skin is warm and dry. tw2 tw2 15:43 15:14 Respiratory: Airway is patent Respiratory effort is even, unlabored, Respiratory tw2 pattern is regular, symmetrical, Breath sounds are clear bilaterally. tw2 15:14 GI: Abdomen is round non-distended, obese, Bowel sounds present X 4 quads. tw2 Reports nausea, tw2 15:14 : No signs and/or symptoms were reported regarding the genitourinary system. tw2tw2 15:14 Derm: No signs and/or symptoms reported regarding the dermatologic system. tw2 tw2 15:14 Musculoskeletal: Circulation, motion, and sensation intact. tw2 2 16:18 16:17 Notified ED physician of tw2 16:13 CRITICAL LAB: glucose 451 mg/dL, provider notified. tw2
--- NOTE | 2019-01-26 18:43 | EDPHYS ---
Physician Documentation [facility] Name: Wero Kwong Sr Age: 53 yrs Sex: Male : 1965 Arrival Date: 01/26/2019 Time: 15:08 Bed 5 Private MD: ED Physician Osito Rehman HPI: 01/26 15:35 This 53 yrs old Male presents to ER via EMS with complaints of Dizziness, rn Nausea/Vomiting, Chest Pain > 30 y/o. 15:35 The patient presents with dizziness, feeling faint, generalized weakness, rn lightheadedness, feeling off balance. Onset: The symptoms/episode began/occurred 1 hour(s) ago. Modifying factors: The symptoms are alleviated by nothing, the symptoms are aggravated by standing up, changing position. Severity of symptoms: At their worst the symptoms were moderate in the emergency department the symptoms have improved. The patient has experienced similar episodes in the past. The patient has been recently seen by a physician:. 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 No abd pain. + nausea/vomiting/diarrhea for a few days. States admitted ehre this past month and cath showed extensive disease not amenable to stent or surgery, is being medically managed. Also had traumatic brain injury and stroke all within this last hospitalization 3 weeks ago. Still on blood thinners. . Historical: - Allergies: 15:17 Codeine; sg 15:17 Hydrocodone-Acetaminophen; sg 15:17 Morphine; sg - Home Meds: 15:17 levetiracetam 500 mg Oral tab 2 tabs daily [Active]; furosemide 40 mg Oral tab 1 tab 2 sg times per day [Active]; clopidogrel 75 mg oral tab 1 tab once daily [Active]; spironolactone 25 mg Oral tab 1 tab once daily [Active]; simvastatin 40 mg oral tab 1 tab once daily [Active]; acetazolamide 500 mg Oral cpER 1 cap 2 times per day [Active]; lisinopril 10 mg oral tab 1 tab once daily [Active]; gabapentin 300 mg Oral cap 6 caps Take 6 capsules by mouth every morning and 4 every evening [Active]; citalopram 20 mg tab 1 tab once daily [Active]; travatan eye drops [Active]; 15:44 Humulin 70/30 100 unit/mL (70-30) Sub-Q susp [Active]; Plavix 75 mg Oral tab 1 tab once tw2 daily [Active]; aspirin 81 mg Oral TbEC 1 tab once daily [Active]; - PMHx: 15:17 CAD; CVA; Diabetes - IDDM; High Cholesterol; Hypertension; Myocardial infarction; sg neuropathy; Seizures; - PSHx: 15:17 cardiac stents; Cholecystectomy; sg - Immunization history:: Adult Immunizations. - Social history:: Smoking status: . - Ebola Screening: : Patient denies travel to an Ebola-affected area in the 21 days before illness onset. - Family history:: not pertinent. - Hospitalizations: : The patient was recently [facility] at [facility], Patient was recently seen at [facility]. ROS: 15:35 Constitutional: Negative for fever, chills, and weight loss, Eyes: Negative for injury, rn pain, redness, and discharge, Neck: Negative for injury, pain, and swelling, Cardiovascular: Negative for palpitations Respiratory: Negative for shortness of breath, cough, wheezing, and pleuritic chest pain, Abdomen/GI: Negative for abdominal pain, and constipation, MS/Extremity: Negative for injury and deformity, Skin: Negative for injury, rash, and discoloration, Neuro: Negative for headache, numbness, tingling, and seizure. Exam: 15:35 Constitutional: This is a well developed, well nourished patient who is awake, alert, rn and in no acute distress. Slow to respond. Head/Face: Normocephalic, atraumatic. Eyes: Pupils equal round and reactive to light, extra-ocular motions intact. Periorbital areas with no swelling, redness, or edema. ENT: dry MM Cardiovascular: Regular rate and rhythm. No pulse deficits. Respiratory: No increased work of breathing, no retractions or nasal flaring. Abdomen/GI: soft, non-tender MS/ Extremity: Pulses equal, no cyanosis. Neurovascular intact. Full, normal range of motion. Equal circumference. Neuro: Awake, GCS 15, oriented to person, place, time, and situation.+ right upper and lower facial droop (at baseline). Motor strength 5/5 in all extremities. Sensory grossly intact. Cerebellar exam normal. Normal gait. 17:46 ECG was reviewed by the Attending Physician. rn Vital Signs: 15:11 BP 82 / 57; Pulse 68; Resp 17; Temp 98.0(O); Pulse Ox 95% on R/A; Weight 98.43 kg (R); tw2 Height 5 ft. 7 in. (170.18 cm) (R); Pain 8/10; 16:14 BP 95 / 50; Pulse 71; Resp 17; Pulse Ox 96% on R/A; tw2 17:05 BP 108 / 67; Pulse 71; Resp 17; Pulse Ox 97% on R/A; tw2 18:04 BP 125 / 64; Pulse 78; Resp 17; Pulse Ox 97% on R/A; tw2 15:11 Body Mass Index 33.99 (98.43 kg, 170.18 cm) tw2 15:11 provider aware of BP at this time. tw2 MDM: 15:11 Patient medically screened. rn 17:49 Response to treatment: the patient's symptoms have resolved after treatment, the rn patient's condition has returned to base line, the patient is now symptom free. ED course: Pt's symptoms have resolved, plan is to repeat lactate/BMP/trop, and if normal/improving will dc home. BP improving.. 18:35 Differential diagnosis: cardiac arrhythmia, generalized weakness, hypovolemia, rn idiopathic dizziness, vertigo. Data reviewed: vital signs, nurses notes, lab test result(s), EKG, radiologic studies, CT scan, plain films. Test interpretation: by ED physician or midlevel provider: plain radiologic studies, CXR without acute infiltrate. Counseling: I had a detailed discussion with the patient and/or guardian regarding: the historical points, exam findings, and any diagnostic results supporting the discharge/admit diagnosis, lab results, radiology results, the need for outpatient follow up, to return to the emergency department if symptoms worsen or persist or if there are any questions or concerns that arise at home. ED course: Lactate normal after IV hydration, normal BP, neg ketones, repeat trop neg. . 18:38 ED course: Creatinine improved to 1.7 per lab report but want recollect. Given lactate rn and creatinine improved, will not keep patient here for repeat bloodwork as vitals improving and asymptomatic.. 18:46 ED course: Feels much better, states still having diarrhea, but now sitting up and rn smiling, more talkative and alert than before. . 10/01 15:29 Order name: Basic Metabolic Panel; Complete Time: 16:42 rn 01/26 15:29 Order name: CBC with Diff; Complete Time: 16:29 rn 01/26 15:29 Order name: Hepatic Function; Complete Time: 16:42 rn 01/26 15:29 Order name: Lipase; Complete Time: 16:42 rn 01/26 15:29 Order name: Magnesium; Complete Time: 16:42 rn 01/26 15:29 Order name: Protime (+inr); Complete Time: 16:29 rn 01/26 15:29 Order name: Ptt, Activated; Complete Time: 16:29 rn 01/26 15:29 Order name: Troponin (emerg Dept Use Only); Complete Time: 16:42 rn 01/26 15:29 Order name: Ketone, Serum; Complete Time: 16:42 rn 01/26 15:29 Order name: AMMONIA; Complete Time: 16:29 rn 01/26 15:30 Order name: Glucometer Result Nova; Complete Time: 16:29 sg 01/26 15:30 Order name: Glucose; Complete Time: 16:29 sg 01/26 15:31 Order name: Procalcitonin; Complete Time: 16:43 rn 01/26 15:31 Order name: Lactate; Complete Time: 16:29 rn 01/26 15:29 Order name: CT Head Brain wo Cont; Complete Time: 16:29 rn 01/26 15:29 Order name: XRAY Chest (1 view); Complete Time: 16:44 rn 01/26 17:47 Order name: Lactate; Complete Time: 18:31 sg 01/26 18:01 Order name: Glucometer Result Nova tw2 01/26 18:26 Order name: Urine Dipstick--Ancillary (enter results) gm 01/26 15:29 Order name: EKG; Complete Time: 15:30 rn 01/26 15:29 Order name: Cardiac monitoring; Complete Time: 15:31 rn 01/26 15:29 Order name: EKG - Nurse/Tech; Complete Time: 15:31 rn 01/26 15:29 Order name: IV Saline Lock; Complete Time: 15:31 rn 01/26 15:29 Order name: Labs collected and sent; Complete Time: 15:31 rn 01/26 15:29 Order name: NPO; Complete Time: 15:31 rn 01/26 15:29 Order name: O2 Per Protocol; Complete Time: 15:39 rn 01/26 15:29 Order name: O2 Sat Monitoring; Complete Time: 15:39 rn 01/26 15:29 Order name: Glucose Level; Complete Time: 15:31 rn 01/26 16:58 Order name: Misc. Order: after 2L NS - Repeat Basic and Troponin; Complete Time: 17:57 tw2 EC:46 Rate is 68 beats/min. Rhythm is regular. QRS is negative in leads I, aVF. WA interval rn is normal. QRS interval is prolonged. QT interval is normal. No Q waves. T waves are Normal. No ST changes noted. Clinical impression: NSR w/ Non-specific ST/T Changes and No change from prior ECG. Interpreted by me. Reviewed by me. Administered Medications: 15:39 Drug: NS 0.9% 500 ml Route: IV; Rate: bolus; Site: right antecubital; tw2 16:56 Follow up: Response: No adverse reaction; IV Status: Completed infusion; IV Intake: sg 500ml 16:37 Drug: NS 0.9% 1000 ml Route: IV; Rate: 1000 ml; Site: right antecubital; tw2 17:58 Follow up: Response: No adverse reaction; IV Status: Completed infusion; IV Intake: tw2 1000ml 16:53 Drug: Insulin Regular Human 5 units {Co-Signature: [email or web address] (Leslye Calderon RN).} Route: IVP; sg Site: right antecubital; 18:01 Follow up: Response: No adverse reaction; Blood sugar is lowered tw2 16:55 Drug: Insulin Regular Human 10 units {Co-Signature: twYanni (Leslye Calderon RN).} Route: Sub-Q; sg Site: right lower abdomen; 18:00 Follow up: Response: No adverse reaction; Blood sugar is lowered tw2 16:56 Drug: NS 0.9% 500 ml Route: IV; Rate: bolus; Site: right antecubital; sg 17:58 Follow up: Response: No adverse reaction; IV Status: Completed infusion; IV Intake: tw2 500ml 18:26 Drug: Insulin Regular Human 10 units {Co-Signature: sg (Loki Miranda RN).} Route: IVP; tw2 Site: right antecubital; 19:06 Follow up: Response: No adverse reaction tw2 18:39 Drug: Potassium Chloride 40 mEq Route: PO; tw2 19:06 Follow up: Response: No adverse reaction tw2 19:05 Drug: LoMOTIL 2 tabs Route: PO; tw2 19:06 Follow up: Response: No adverse reaction tw2 Disposition: 01/26/19 18:42 Discharged to Home. Impression: Dizziness and giddiness, Dehydration, Hyperglycemia, unspecified, Chest pain, unspecified. - Condition is Stable. - Discharge Instructions: Nonspecific Chest Pain, Dehydration, Adult, Dizziness, Hyperglycemia. - Prescriptions for Zofran ODT 4 mg Oral tablet,disintegrating - place 1 tablet by TRANSLINGUAL route every 8 hours As needed; 20 tablet. - Medication Reconciliation Form, Thank You Letter, Antibiotic Education, Prescription Opioid Use form. - Follow up: Private Physician; When: 2 - 3 days; Reason: Recheck today's complaints, Re-evaluation by your physician. - Problem is new. - Symptoms have improved. Signatures: Dispatcher [employer] Loki Long RN RN sg Osito Rehman MD MD rn Wise, Tara, RN RN tw2 Leslye Calderon RN tw2 Loki Miranda RN sg Corrections: (The following items were deleted from the chart) 15:40 15:35 Constitutional: This is a well developed, well nourished patient who is awake, rn alert, and in no acute distress. Slow to respond. Head/Face: Normocephalic, atraumatic. Eyes: Pupils equal round and reactive to light, extra-ocular motions intact. Periorbital areas with no swelling, redness, or edema. ENT: dry MM Cardiovascular: Regular rate and rhythm. No pulse deficits. Respiratory: No increased work of breathing, no retractions or nasal flaring. Abdomen/GI: soft, non-tender MS/ Extremity: Pulses equal, no cyanosis. Neurovascular intact. Full, normal range of motion. Equal circumference. Neuro: Awake, GCS 15, oriented to person, place, time, and situation.+ right upper and lower facial droop (at baseline). Motor strength 5/5 in all extremities. Sensory grossly intact. Cerebellar exam normal. Normal gait. rn 16:40 16:33 Arterial Blood Gas+RC.LAB.BRZ ordered. EDUT EDUT 19:06 18:42 01/26/2019 18:42 Discharged to Home. Impression: Dizziness and giddiness; tw2 Dehydration; Hyperglycemia, unspecified; Chest pain, unspecified. Condition is Stable. Forms are Medication Reconciliation Form, Thank You Letter, Antibiotic Education, Prescription Opioid Use. Follow up: Private Physician; When: 2 - 3 days; Reason: Recheck today's complaints, Re-evaluation by your physician. Problem is new. Symptoms have improved. rn
[2019-01-26] MEDS ORDERED: DIPHENOX/ATROP SULF 1 TAB PO ONE (18:55)
[2019-01-26 19:27] VITALS: TEMP 98
[2019-01-26 19:29] VITALS: O2SAT 97
[2019-01-26 19:30] VITALS: BP 125/64
[2019-01-26 20:25] LABS: Urine Blood 1+ (NEG); Urine Glucose 2+ (NEG); Urine Protein 3+ (NEG); Urine Specific Gravity 1.025 (1.005-1.030)
== END 2019-01-26 19:06 | disposition home or self-care (01) ==
LOC: ER 15:06
DX: E86.0 Dehydration (principal); E11.65 Type 2 diabetes mellitus with hyperglycemia; R07.9 Chest pain, unspecified; I10 Essential (primary) hypertension; E78.00 Pure hypercholesterolemia, unspecified; G40.909 Epilepsy, unspecified, not intractable, without status epilepticus; I25.2 Old myocardial infarction; Z79.01 Long term (current) use of anticoagulants; Z79.82 Long term (current) use of aspirin; Z79.4 Long term (current) use of insulin; Z87.820 Personal history of traumatic brain injury; Z88.5 Allergy status to narcotic agent
CPT/HCPCS: 36415; 70450; 71045; 80048; 80076; 81003; 82010; 82140; 82947; 82962; 83605; 83690; 83735; 84145; 84484; 85025; 85610; 85730; 93005; 96361; 96372; 96374; 99285; J7030

== ENCOUNTER 2019-04-03 05:29 | Emergency (ER) | payer SELFPAY ==
--- OUTSIDE RECORDS SUMMARY | 2019-04-03 05:32 | XMS REPORT ---
:1965 [facility] Address [address] [place] [address] Care Team Providers Name Role Phone BASHIR RODRIGUES Unavailable Unavailable Problems This patient has no known problems. Allergies, Adverse Reactions, Alerts This patient has no known allergies or adverse reactions. Medications This patient has no known medications. Results Test Description Test Time Test Comments Text Results Atomic Results Result Comments POCT-GLUCOSE METER 2019-01-11 12:50:00 Test Item Value Reference Range Comments POC-GLUCOSE METER (BEAKER) (test 119 mg/dL 70-[address] [facility] [address] [place] [address] mjvh=7898) [facility] [address] BASIC METABOLIC [id number] 06:16:00 Test Item Value Reference Range Comments SODIUM (BEAKER) (test 139 meq/L 136-145 pwkq=771) POTASSIUM (BEAKER) (test 4.5 meq/L 3.5-5.1 lqvs=466) CHLORIDE (BEAKER) (test 109 meq/L 98-107 fgdz=785) CO2 (BEAKER) (test 23 meq/L 22-29 fuqz=586) BLOOD UREA NITROGEN 30 mg/dL 7-21 (BEAKER) (test twfw=559) CREATININE (BEAKER) (test 1.87 mg/dL 0.57-1.25 khzr=149) GLUCOSE RANDOM (BEAKER) 219 mg/dL 70-105 (test pqdo=935) CALCIUM (BEAKER) (test 8.9 mg/dL 8.4-10.2 utrc=323) EGFR (BEAKER) (test 38 mL/min/1.73 sq m ESTIMATED GFR IS NOT bjuh=1966) ACCURATE CREATININE CLEARANCE IN PREDICTING GLOMERULAR FILTRATION RATE. ESTIMATED GFR IS NOT APPLICABLE FOR DIALYSIS PATIENTS. CBC W/PLT COUNT & AUTO [id number] 05:42:00 Test Item Value Reference Range Comments WHITE BLOOD CELL COUNT (BEAKER) (test fzoh=133) 4.1 K/ L 3.5-10.5 RED BLOOD CELL COUNT (BEAKER) (test vhtn=762) 3.72 M/ L 4.63-6.08 HEMOGLOBIN (BEAKER) (test tjra=515) 11.6 GM/DL 13.7-17.5 HEMATOCRIT (BEAKER) (test litt=459) 33.6 % 40.1-51.0 MEAN CORPUSCULAR VOLUME (BEAKER) (test gkie=834) 90.3 fL 79.0-92.2 MEAN CORPUSCULAR HEMOGLOBIN (BEAKER) (test 31.2 pg 25.7-32.2 tncj=886) MEAN CORPUSCULAR HEMOGLOBIN CONC (BEAKER) (test 34.5 GM/DL 32.3-36.5 swpu=598) RED CELL DISTRIBUTION WIDTH (BEAKER) (test 13.7 % 11.6-14.4 clwf=570) PLATELET COUNT (BEAKER) (test ekyv=435) 170 K/CU MM 150-450 MEAN PLATELET VOLUME (BEAKER) (test ywlr=845) 11.8 fL 9.4-12.4 NUCLEATED RED BLOOD CELLS (BEAKER) (test 0 /100 WBC 0-0 ebrz=942) NEUTROPHILS RELATIVE PERCENT (BEAKER) (test 53 % ceim=192) LYMPHOCYTES RELATIVE PERCENT (BEAKER) (test 32 % oltj=769) MONOCYTES RELATIVE PERCENT (BEAKER) (test 7 % cprb=679) EOSINOPHILS RELATIVE PERCENT (BEAKER) (test 6 % hwns=535) BASOPHILS RELATIVE PERCENT (BEAKER) (test 1 % hthc=318) NEUTROPHILS ABSOLUTE COUNT (BEAKER) (test 2.17 K/ L 1.78-5.38 pmho=909) LYMPHOCYTES ABSOLUTE COUNT (BEAKER) (test 1.31 K/ L 1.32-3.57 lfqi=279) MONOCYTES ABSOLUTE COUNT (BEAKER) (test 0.29 K/ L 0.30-0.82 sjaf=967) EOSINOPHILS ABSOLUTE COUNT (BEAKER) (test 0.26 K/ L 0.04-0.54 ieyj=062) BASOPHILS ABSOLUTE COUNT (BEAKER) (test 0.03 K/ L 0.01-0.08 fljg=407) IMMATURE GRANULOCYTES-RELATIVE PERCENT (BEAKER) 1 % 0-1 (test fvgs=0227) POCT-GLUCOSE [id number] 20:34:00 Test Item Value Reference Range Comments POC-GLUCOSE METER (BEAKER) 205 mg/dL 70-110 TESTED AT [address] (test aaxc=6113) [facility] [address] CT, CHEST, WITHOUT [id number] 18:24:00FINAL REPORT TECHNIQUE: CT scan of the chest WITHOUT intravenous contrast. Dose modulation, iterative reconstruction, and/or weight-based adjustment of the mA/ kV was utilized to reduce the radiation dose to as low as reasonably achievable. INDICATION: Chest pain or SOB, pleurisyor effusion suspected. COMPARISON: None. FINDINGS: ABSENCE OF INTRAVENOUS CONTRAST DECREASES SENSITIVITY FOR DETECTION OF FOCAL LESIONS AND VASCULAR PATHOLOGY. LINES/TUBES: None. LUNGS AND AIRWAYS: Bibasilar subsegmental atelectasis. A right middle lobe pulmonary nodule measures 0.3 cm on axial image 29. A calcified granuloma in the right lower lobe measures 0.2 cm. PLEURA: The pleural spaces are clear. HEART AND MEDIASTINUM: The visualized thyroid gland is normal. No significant mediastinal, hilar, or axillary lymphadenopathy. The heart and pericardium are within normal limits. Marked coronary arterial calcifications. There are likely stents in the left anterior descending coronary artery. SOFTTISSUES AND BONES: Unremarkable. UPPER ABDOMEN: Prior cholecystectomy. 14.8 cm splenomegaly. The liver is likely nodular. IMPRESSION: 1.No acute intrathoracic abnormality. 2.The mild nodularity of theliver is concerning for cirrhosis. Mild splenomegaly. 3.A right middle lobe pulmonary nodule measures 0.3 cm and is indeterminate. If the patient is at increased risk for lung cancer, an optional follow-up chest CT can be obtained in 12 months. Otherwise, no CT follow-up is necessary. Signed: Amrik Sierra Verified Date/Time: 01/10/2019 18:24:57 Reading Location: [facility] C013Y CT Body Reading Room POCT-GLUCOSE [id number] 17:31 :00 Test Item Value Reference Range Comments POC-GLUCOSE METER (BEAKER) 183 mg/dL 70-110 TESTED AT [address] (test qlhh=3512) [facility] [address] CT, BRAIN, WITHOUT [id number] 14:47:00FINAL REPORT CT, BRAIN, WITHOUT CONTRAST INDICATION: Subdural hemorrhage, follow-up TECHNIQUE: Noncontrast axial imaging was obtained from the vertex to the skull base. Axial images were reconstructed using a bone algorithm. DOSE REDUCTION: Dose modulation, iterative reconstruction, and/or weight-based adjustment of the mA/kV was utilized to reduce the radiation dose to as low as reasonably achievable. COMPARISON: CT 01/06/2019 FINDINGS: Intracranial: Unchanged minimal thickening of the right tentorial leaflet. Streak artifact along the right convexity causes appearance of hyperdense collection; a similar finding is present to a lesser degree on the contralateral side. No newsite of intracranial hemorrhage or abnormal extra-axial collection. No evidence of acute territorialinfarct. No mass effect. No hydrocephalus. Osseous structures: No fracture. Right parietal scalp swelling similar to prior exam. Paranasal sinuses and mastoid air cells: Minimal mucosal thickening in the right maxillary sinus. Mastoids are clear. Orbital contents: Globes are intact. IMPRESSION: 1.Unchanged minimal thickening of the right tentorial leaflet. 2.The apparent thin hyperdense collections along the bilateral convexities are in regions of streak artifact and likely artifactual. If there is persistent clinical concern for intracranial pathology, MR examination is recommended for further characterization. Signed: Lubna Lr MDReport Verified Date/Time: 01/10/2019 14:47:25 -[id number] 11:36:00 Test Item Value Reference Range Comments D-DIMER QUANTITATIVE (BEAKER) (test mqsb=923) 2.14 MG/L FEU <0.50 Intended Use: The D-Dimer Assay can be used to aid in the diagnosis of Deep Vein Thrombosis (DVT) and Pulmonary Embolism Disease (PED).In patients with low pre-test probability, various studies concerning STA Liatest D-dimer test have reported that with a cutoff value of 0.50 MG/L FEU, the Negative Predictive Value (NPV) regarding the exclusion of thrombosis is within 95-100% range.RAD, CHEST, 1 VIEW, NON [id number] 08:17:00Reason for exam:->chest painShould this be performed at the bedside?->YesFINAL REPORT Chest, AP view. History: Chest pain. Comparison: 01/06/2019. Discussion: The cardiomediastinal silhouette and pulmonary vasculature are within normal limits. The lungs are clear without evidence of consolidation or effusion. There are no acute osseous abnormalities. The soft tissues are unremarkable. IMPRESSION: No acute cardiopulmonary abnormality. Signed: Britney Schwab MDReport Verified Date/Time: 01/10/2019 08:17:19 Reading Location: [facility] B1 C013X Ortho Consult Reading Room TROPONIN [id number] 07:02:00 Test Item Value Reference Range Comments TROPONIN I (BEAKER) (test vbcn=173) 0.02 ng/mL 0.00-0.03 Troponin I (TnI) levels must be interpreted in the context of the presenting symptoms and the clinical findings. Elevated TnI levels indicate myocardial damage, but are not specific for ischemic heart disease. Elevated TnI levels are seen in patients with other cardiac conditions (including myocarditis and congestive heart failure), and slight TnI elevations occur in patients with other conditions, including sepsis, renal failure, acidosis, acute neurological disease, and persistent tachyarrhythmia.B-TYPE NATRIURETIC FACTOR (BNP) 06:59:00 Test Item Value Reference Range Comments B-TYPE NATRIURETIC PEPTIDE (BEAKER) (test 130 pg/mL 0-100 rhhh=468) BASIC METABOLIC [id number] 06:51:00 Test Item Value Reference Range Comments SODIUM (BEAKER) (test 137 meq/L 136-145 hylj=940) POTASSIUM (BEAKER) (test 4.3 meq/L 3.5-5.1 gycs=725) CHLORIDE (BEAKER) (test 108 meq/L 98-107 sqdm=360) CO2 (BEAKER) (test 21 meq/L 22-29 nfnh=558) BLOOD UREA NITROGEN 34 mg/dL 7-21 (BEAKER) (test tzks=556) CREATININE (BEAKER) (test 2.00 mg/dL 0.57-1.25 cfek=231) GLUCOSE RANDOM (BEAKER) 169 mg/dL 70-105 (test digg=346) CALCIUM (BEAKER) (test 8.7 mg/dL 8.4-10.2 kbwe=718) EGFR (BEAKER) (test 35 mL/min/1.73 sq m ESTIMATED GFR IS NOT cbee=6407) ACCURATE CREATININE CLEARANCE IN PREDICTING GLOMERULAR FILTRATION RATE. ESTIMATED GFR IS NOT APPLICABLE FOR DIALYSIS PATIENTS. CBC W/PLT COUNT & AUTO [id number] 06:27:00 Test Item Value Reference Range Comments WHITE BLOOD CELL COUNT (BEAKER) (test itju=294) 5.0 K/ L 3.5-10.5 RED BLOOD CELL COUNT (BEAKER) (test rpbq=571) 3.44 M/ L 4.63-6.08 HEMOGLOBIN (BEAKER) (test oqdd=290) 10.8 GM/DL 13.7-17.5 HEMATOCRIT (BEAKER) (test rncc=144) 31.5 % 40.1-51.0 MEAN CORPUSCULAR VOLUME (BEAKER) (test agxp=618) 91.6 fL 79.0-92.2 MEAN CORPUSCULAR HEMOGLOBIN (BEAKER) (test 31.4 pg 25.7-32.2 nzzf=464) MEAN CORPUSCULAR HEMOGLOBIN CONC (BEAKER) (test 34.3 GM/DL 32.3-36.5 immi=764) RED CELL DISTRIBUTION WIDTH (BEAKER) (test 13.7 % 11.6-14.4 sllm=762) PLATELET COUNT (BEAKER) (test qgpj=170) 146 K/CU MM 150-450 MEAN PLATELET VOLUME (BEAKER) (test btse=777) 12.1 fL 9.4-12.4 NUCLEATED RED BLOOD CELLS (BEAKER) (test 0 /100 WBC 0-0 ucfe=957) NEUTROPHILS RELATIVE PERCENT (BEAKER) (test 48 % vwic=429) LYMPHOCYTES RELATIVE PERCENT (BEAKER) (test 37 % wlxv=435) MONOCYTES RELATIVE PERCENT (BEAKER) (test 8 % fnkf=084) EOSINOPHILS RELATIVE PERCENT (BEAKER) (test 6 % kzlw=386) BASOPHILS RELATIVE PERCENT (BEAKER) (test 1 % fare=436) NEUTROPHILS ABSOLUTE COUNT (BEAKER) (test 2.42 K/ L 1.78-5.38 flwq=881) LYMPHOCYTES ABSOLUTE COUNT (BEAKER) (test 1.83 K/ L 1.32-3.57 vfdw=946) MONOCYTES ABSOLUTE COUNT (BEAKER) (test 0.40 K/ L 0.30-0.82 stfn=082) EOSINOPHILS ABSOLUTE COUNT (BEAKER) (test 0.30 K/ L 0.04-0.54 oybv=981) BASOPHILS ABSOLUTE COUNT (BEAKER) (test 0.04 K/ L 0.01-0.08 kost=291) IMMATURE GRANULOCYTES-RELATIVE PERCENT (BEAKER) 0 % 0-1 (test uuec=3158) TROPONIN [id number] 23:52:00 Test Item Value Reference Range Comments TROPONIN I (BEAKER) (test rtft=698) 0.03 ng/mL 0.00-0.03 Troponin I (TnI) levels must be interpreted in the context of the presenting symptoms and the clinical findings. Elevated TnI levels indicate myocardial damage, but are not specific for ischemic heart disease. Elevated TnI levels are seen in patients with other cardiac conditions (including myocarditis and congestive heart failure), and slight TnI elevations occur in patients with other conditions, including sepsis, renal failure, acidosis, acute neurological disease, and persistent tachyarrhythmia.POCT-GLUCOSE [id number] 22:03:00 Test Item Value Reference Range Comments POC-GLUCOSE METER (BEAKER) 315 mg/dL 70-110 TESTED AT [address] (test fvlk=0283) [facility] [address] POCT-GLUCOSE [id number] 20:02:00 Test Item Value Reference Range Comments POC-GLUCOSE METER (BEAKER) 250 mg/dL 70-110 TESTED AT [address] (test dboi=9227) [place] [address] TROPONIN [id number] 19:05:00 Test Item Value Reference Range Comments TROPONIN I (BEAKER) (test jnwz=954) 0.04 ng/mL 0.00-0.03 Troponin I (TnI) levels must be interpreted in the context of the presenting symptoms and the clinical findings. Elevated TnI levels indicate myocardial damage, but are not specific for ischemic heart disease. Elevated TnI levels are seen in patients with other cardiac conditions (including myocarditis and congestive heart failure), and slight TnI elevations occur in patients with other conditions, including sepsis, renal failure, acidosis, acute neurological disease, and persistent tachyarrhythmia.POCT-GLUCOSE [id number] 17:40:00 Test Item Value Reference Range Comments POC-GLUCOSE METER (BEAKER) 246 mg/dL 70-[address] [facility] [address] [facility] (test rfsp=5718) [facility] [address] POCT-GLUCOSE [id number] 08:11:00 Test Item Value Reference Range Comments POC-GLUCOSE METER (BEAKER) 243 mg/dL 70-[address] [facility] [address] [facility] (test acft=3662) [facility] [address] BASIC METABOLIC [id number] 05:04:00 Test Item Value Reference Range Comments SODIUM (BEAKER) (test 138 meq/L 136-145 jkzg=230) POTASSIUM (BEAKER) (test 4.5 meq/L 3.5-5.1 veov=340) CHLORIDE (BEAKER) (test 110 meq/L 98-107 dhmn=367) CO2 (BEAKER) (test 22 meq/L 22-29 wsny=527) BLOOD UREA NITROGEN 34 mg/dL 7-21 (BEAKER) (test cjsf=714) CREATININE (BEAKER) (test 2.01 mg/dL 0.57-1.25 pfew=455) GLUCOSE RANDOM (BEAKER) 243 mg/dL 70-105 (test nbdv=387) CALCIUM (BEAKER) (test 8.5 mg/dL 8.4-10.2 byhf=597) EGFR (BEAKER) (test 35 mL/min/1.73 sq m ESTIMATED GFR IS NOT ikrw=1564) ACCURATE CREATININE CLEARANCE IN PREDICTING GLOMERULAR FILTRATION RATE. ESTIMATED GFR IS NOT APPLICABLE FOR DIALYSIS PATIENTS. [id number] 04:56:00 Test Item Value Reference Range Comments PARTIAL THROMBOPLASTIN TIME (BEAKER) (test 35.0 seconds 22.5-36.0 wvlw=402) CBC W/PLT COUNT & AUTO [id number] 04:48:00 Test Item Value Reference Range Comments WHITE BLOOD CELL COUNT (BEAKER) (test nmiv=196) 4.9 K/ L 3.5-10.5 RED BLOOD CELL COUNT (BEAKER) (test ycej=517) 3.36 M/ L 4.63-6.08 HEMOGLOBIN (BEAKER) (test bwez=811) 10.5 GM/DL 13.7-17.5 HEMATOCRIT (BEAKER) (test stft=890) 30.5 % 40.1-51.0 MEAN CORPUSCULAR VOLUME (BEAKER) (test fzfq=876) 90.8 fL 79.0-92.2 MEAN CORPUSCULAR HEMOGLOBIN (BEAKER) (test 31.3 pg 25.7-32.2 rllf=171) MEAN CORPUSCULAR HEMOGLOBIN CONC (BEAKER) (test 34.4 GM/DL 32.3-36.5 aair=223) RED CELL DISTRIBUTION WIDTH (BEAKER) (test 13.5 % 11.6-14.4 nbfl=576) PLATELET COUNT (BEAKER) (test kess=326) 116 K/CU MM 150-450 MEAN PLATELET VOLUME (BEAKER) (test ztkv=050) 11.9 fL 9.4-12.4 NUCLEATED RED BLOOD CELLS (BEAKER) (test 0 /100 WBC 0-0 hqsp=088) NEUTROPHILS RELATIVE PERCENT (BEAKER) (test 52 % kmdj=881) LYMPHOCYTES RELATIVE PERCENT (BEAKER) (test 36 % tgob=653) MONOCYTES RELATIVE PERCENT (BEAKER) (test 8 % frfr=611) EOSINOPHILS RELATIVE PERCENT (BEAKER) (test 4 % sezw=695) BASOPHILS RELATIVE PERCENT (BEAKER) (test 0 % ohzs=876) NEUTROPHILS ABSOLUTE COUNT (BEAKER) (test 2.51 K/ L 1.78-5.38 dsxi=913) LYMPHOCYTES ABSOLUTE COUNT (BEAKER) (test 1.74 K/ L 1.32-3.57 cvru=316) MONOCYTES ABSOLUTE COUNT (BEAKER) (test 0.38 K/ L 0.30-0.82 pmbm=042) EOSINOPHILS ABSOLUTE COUNT (BEAKER) (test 0.18 K/ L 0.04-0.54 qfxq=324) BASOPHILS ABSOLUTE COUNT (BEAKER) (test 0.02 K/ L 0.01-0.08 zfil=114) IMMATURE GRANULOCYTES-RELATIVE PERCENT (BEAKER) 1 % 0-1 (test tial=1913) POCT-GLUCOSE [id number] 22:08:00 Test Item Value Reference Range Comments POC-GLUCOSE METER (BEAKER) 364 mg/dL 70-110 Notified HAYLEE BOSS/TESTED AT [facility] (test wpqt=1522) [address] [facility] [address] POCT-GLUCOSE [id number] 17:05:00 Test Item Value Reference Range Comments POC-GLUCOSE METER (BEAKER) 389 mg/dL 70-110 Notified HAYLEE BOSS/TESTED AT [facility] (test ewaj=9746) [address] [facility] [address] BASIC METABOLIC [id number] 16:28:00 Test Item Value Reference Range Comments SODIUM (BEAKER) (test 136 meq/L 136-145 vnci=353) POTASSIUM (BEAKER) (test 4.7 meq/L 3.5-5.1 yahm=025) CHLORIDE (BEAKER) (test 107 meq/L 98-107 vqbk=565) CO2 (BEAKER) (test 23 meq/L 22-29 fmfx=763) BLOOD UREA NITROGEN 35 mg/dL 7-21 (BEAKER) (test btvs=849) CREATININE (BEAKER) (test 2.22 mg/dL 0.57-1.25 hacl=104) GLUCOSE RANDOM (BEAKER) 358 mg/dL 70-105 (test vqao=449) CALCIUM (BEAKER) (test 8.7 mg/dL 8.4-10.2 hrno=133) EGFR (BEAKER) (test 31 mL/min/1.73 sq m ESTIMATED GFR IS NOT alzm=4927) ACCURATE CREATININE CLEARANCE IN PREDICTING GLOMERULAR FILTRATION RATE. ESTIMATED GFR IS NOT APPLICABLE FOR DIALYSIS PATIENTS. [id number] 16:26:00 Test Item Value Reference Range Comments PROTIME (BEAKER) (test tkrz=426) 13.4 seconds 11.9-14.2 INR (BEAKER) (test vohr=173) 1.1 <=5.9 PARTIAL THROMBOPLASTIN TIME (BEAKER) (test 32.0 seconds 22.5-36.0 ogmj=484) Effective 09/23/2018: PT Reference Range ChangeNew: 11.9-14.2 Previous: 11.7- 14.7RECOMMENDED COUMADIN/WARFARIN INR THERAPY RANGESSTANDARD DOSE: 2.0-3.0 Includes: PROPHYLAXIS for venous thrombosis, systemic embolization; TREATMENT for venous thrombosis and/or pulmonary embolus.HIGH RISK: Target INR is2.5-3.5 for patients wiht mechanical heart valves.[id number] 16:26:00 Test Item Value Reference Range Comments PARTIAL THROMBOPLASTIN TIME (BEAKER) (test 32.0 seconds 22.5-36.0 gawz=287) POCT-GLUCOSE [id number] 12:06:00 Test Item Value Reference Range Comments POC-GLUCOSE METER (BEAKER) 321 mg/dL 70-110 Notified HAYLEE BOSS/TESTED AT [facility] (test bypw=2297) [address] [facility] [address] POCT-GLUCOSE [id number] 08:29:00 Test Item Value Reference Range Comments POC-GLUCOSE METER (BEAKER) 263 mg/dL 70-110 TESTED AT [place] [address] [facility] (test qfhu=3133) [facility] [address] [id number] 04:54:00 Test Item Value Reference Range Comments PARTIAL THROMBOPLASTIN TIME (BEAKER) (test 31.0 seconds 22.5-36.0 jayo=759) CBC W/PLT COUNT & AUTO [id number] 04:43:00 Test Item Value Reference Range Comments WHITE BLOOD CELL COUNT (BEAKER) (test yjfa=222) 6.6 K/ L 3.5-10.5 RED BLOOD CELL COUNT (BEAKER) (test awcb=261) 3.45 M/ L 4.63-6.08 HEMOGLOBIN (BEAKER) (test uozd=834) 10.9 GM/DL 13.7-17.5 HEMATOCRIT (BEAKER) (test jjct=082) 30.8 % 40.1-51.0 MEAN CORPUSCULAR VOLUME (BEAKER) (test veja=527) 89.3 fL 79.0-92.2 MEAN CORPUSCULAR HEMOGLOBIN (BEAKER) (test 31.6 pg 25.7-32.2 xrut=519) MEAN CORPUSCULAR HEMOGLOBIN CONC (BEAKER) (test 35.4 GM/DL 32.3-36.5 kyjg=665) RED CELL DISTRIBUTION WIDTH (BEAKER) (test 13.5 % 11.6-14.4 bdop=245) PLATELET COUNT (BEAKER) (test jaeg=030) 138 K/CU MM 150-450 MEAN PLATELET VOLUME (BEAKER) (test wjha=228) 12.3 fL 9.4-12.4 NUCLEATED RED BLOOD CELLS (BEAKER) (test 0 /100 WBC 0-0 kfwd=538) NEUTROPHILS RELATIVE PERCENT (BEAKER) (test 64 % tfkg=817) LYMPHOCYTES RELATIVE PERCENT (BEAKER) (test 24 % giti=534) MONOCYTES RELATIVE PERCENT (BEAKER) (test 8 % uucw=993) EOSINOPHILS RELATIVE PERCENT (BEAKER) (test 3 % rthg=770) BASOPHILS RELATIVE PERCENT (BEAKER) (test 1 % sljf=070) NEUTROPHILS ABSOLUTE COUNT (BEAKER) (test 4.22 K/ L 1.78-5.38 wrnl=245) LYMPHOCYTES ABSOLUTE COUNT (BEAKER) (test 1.54 K/ L 1.32-3.57 xpey=689) MONOCYTES ABSOLUTE COUNT (BEAKER) (test 0.53 K/ L 0.30-0.82 nlpq=024) EOSINOPHILS ABSOLUTE COUNT (BEAKER) (test 0.20 K/ L 0.04-0.54 jwgf=429) BASOPHILS ABSOLUTE COUNT (BEAKER) (test 0.03 K/ L 0.01-0.08 ujsa=381) IMMATURE GRANULOCYTES-RELATIVE PERCENT (BEAKER) 1 % 0-1 (test ygzb=6639) POCT-GLUCOSE [id number] 22:11:00 Test Item Value Reference Range Comments POC-GLUCOSE METER (BEAKER) 319 mg/dL 70-110 Notified HAYLEE BOSS/TESTED AT [facility] (test zscz=3125) [address] [place] [address] [id number] 20:11:00 Test Item Value Reference Range Comments PARTIAL THROMBOPLASTIN TIME (BEAKER) (test 33.3 seconds 22.5-36.0 saai=809) POCT-GLUCOSE [id number] 18:49:00 Test Item Value Reference Range Comments POC-GLUCOSE METER (BEAKER) 309 mg/dL 70-110 TESTED AT [address] (test hvnv=3028) [place] [id number] POCT-GLUCOSE [id number] 14:48:00 Test Item Value Reference Range Comments POC-GLUCOSE METER (BEAKER) 161 mg/dL 70-110 TESTED AT [address] (test oyho=8237) [place] [id number] POCT-GLUCOSE [id number] 14:46:00 Test Item Value Reference Range Comments POC-GLUCOSE METER (BEAKER) 159 mg/dL 70-110 TESTED AT [address] (test hcsc=8046) [place] [address] TROPONIN [id number] 13:58:00 Test Item Value Reference Range Comments TROPONIN I (BEAKER) (test mlrp=082) < ng/mL 0.00-0.03 Troponin I (TnI) levels must be interpreted in the context of the presenting symptoms and the clinical findings. Elevated TnI levels indicate myocardial damage, but are not specific for ischemic heart disease. Elevated TnI levels are seen in patients with other cardiac conditions (including myocarditis and congestive heart failure), and slight TnI elevations occur in patients with other conditions, including sepsis, renal failure, acidosis, acute neurological disease, and persistent tachyarrhythmia.[id number] 12:25:00 Test Item Value Reference Range Comments PARTIAL THROMBOPLASTIN TIME (BEAKER) (test 30.3 seconds 22.5-36.0 nuqq=109) POCT-GLUCOSE [id number] 12:18:00 Test Item Value Reference Range Comments POC-GLUCOSE METER (BEAKER) 168 mg/dL 70-110 TESTED AT [address] (test pdrx=1332) [place] [id number] POCT-GLUCOSE [id number] 11:06:00 Test Item Value Reference Range Comments POC-GLUCOSE METER (BEAKER) 180 mg/dL 70-110 TESTED AT [address] (test gnuv=6745) [place] [id number] POCT-GLUCOSE [id number] 10:21:00 Test Item Value Reference Range Comments POC-GLUCOSE METER (BEAKER) 195 mg/dL 70-110 TESTED AT [address] (test btij=3741) [place] [id number] POCT-GLUCOSE [id number] 10:21:00 Test Item Value Reference Range Comments POC-GLUCOSE METER (BEAKER) 180 mg/dL 70-110 TESTED AT [address] (test mdoz=4761) [facility] [id number] POCT-GLUCOSE [id number] 08:06:00 Test Item Value Reference Range Comments POC-GLUCOSE METER (BEAKER) 218 mg/dL 70-110 TESTED AT [address] (test jjzx=5289) [place] [id number] TROPONIN [id number] 07:00:00 Test Item Value Reference Range Comments TROPONIN I (BEAKER) (test anal=044) 0.01 ng/mL 0.00-0.03 Troponin I (TnI) levels must be interpreted in the context of the presenting symptoms and the clinical findings. Elevated TnI levels indicate myocardial damage, but are not specific for ischemic heart disease. Elevated TnI levels are seen in patients with other cardiac conditions (including myocarditis and congestive heart failure), and slight TnI elevations occur in patients with other conditions, including sepsis, renal failure, acidosis, acute neurological disease, and persistent tachyarrhythmia.Once on admission and Daily AM afterwardsOnce on admission and Daily AM afterwardsOnce on admission and Daily AM afterwardsPOCT-GLUCOSE [id number] 06:58:00 Test Item Value Reference Range Comments POC-GLUCOSE METER (BEAKER) 248 mg/dL 70-[address] [facility] [address] [facility] (test qtrr=3151) [facility] [id number] [id number] 06:54:00 Test Item Value Reference Range Comments PHOSPHORUS (BEAKER) (test sgnv=198) 2.5 mg/dL 2.3-4.7 Once on admission and Daily AM afterwardsOnce on admission and Daily AM afterwardsOnce on admission and Daily AM [id number] 06:54:00 Test Item Value Reference Range Comments MAGNESIUM (BEAKER) (test pllj=044) 2.2 mg/dL 1.6-2.6 Once on admission and Daily AM afterwardsOnce on admission and Daily AM afterwardsOnce on admission and Daily AM afterwardsBASIC METABOLIC [id number] 06:54:00 Test Item Value Reference Range Comments SODIUM (BEAKER) (test 137 meq/L 136-145 irff=994) POTASSIUM (BEAKER) (test 4.4 meq/L 3.5-5.1 xqml=777) CHLORIDE (BEAKER) (test 111 meq/L 98-107 nnpk=075) CO2 (BEAKER) (test 22 meq/L 22-29 qact=223) BLOOD UREA NITROGEN 37 mg/dL 7-21 (BEAKER) (test wgpl=186) CREATININE (BEAKER) (test 1.93 mg/dL 0.57-1.25 yxtq=782) GLUCOSE RANDOM (BEAKER) 253 mg/dL 70-105 (test jvmz=130) CALCIUM (BEAKER) (test 8.1 mg/dL 8.4-10.2 hpud=695) EGFR (BEAKER) (test 37 mL/min/1.73 sq m ESTIMATED GFR IS NOT knjq=7819) ACCURATE CREATININE CLEARANCE IN PREDICTING GLOMERULAR FILTRATION RATE. ESTIMATED GFR IS NOT APPLICABLE FOR DIALYSIS PATIENTS. Once on admission and Daily AM afterwardsOnce on admission and Daily AM afterwardsOnce on admission and Daily AM afterwardsCBC W/PLT COUNT & AUTO [id number] 06:42:00 Test Item Value Reference Range Comments WHITE BLOOD CELL COUNT (BEAKER) (test bydj=030) 4.8 K/ L 3.5-10.5 RED BLOOD CELL COUNT (BEAKER) (test llum=409) 3.50 M/ L 4.63-6.08 HEMOGLOBIN (BEAKER) (test ghna=206) 11.0 GM/DL 13.7-17.5 HEMATOCRIT (BEAKER) (test oihb=403) 31.7 % 40.1-51.0 MEAN CORPUSCULAR VOLUME (BEAKER) (test yslg=873) 90.6 fL 79.0-92.2 MEAN CORPUSCULAR HEMOGLOBIN (BEAKER) (test 31.4 pg 25.7-32.2 wfqu=504) MEAN CORPUSCULAR HEMOGLOBIN CONC (BEAKER) (test 34.7 GM/DL 32.3-36.5 hdvx=830) RED CELL DISTRIBUTION WIDTH (BEAKER) (test 13.5 % 11.6-14.4 fpwj=430) PLATELET COUNT (BEAKER) (test onwk=161) 118 K/CU MM 150-450 MEAN PLATELET VOLUME (BEAKER) (test tkbt=256) 12.1 fL 9.4-12.4 NUCLEATED RED BLOOD CELLS (BEAKER) (test 0 /100 WBC 0-0 sedu=738) NEUTROPHILS RELATIVE PERCENT (BEAKER) (test 42 % ntkv=928) LYMPHOCYTES RELATIVE PERCENT (BEAKER) (test 46 % lqii=778) MONOCYTES RELATIVE PERCENT (BEAKER) (test 7 % ylbt=993) EOSINOPHILS RELATIVE PERCENT (BEAKER) (test 4 % aqmj=843) BASOPHILS RELATIVE PERCENT (BEAKER) (test 1 % ihda=490) NEUTROPHILS ABSOLUTE COUNT (BEAKER) (test 2.00 K/ L 1.78-5.38 ggle=315) LYMPHOCYTES ABSOLUTE COUNT (BEAKER) (test 2.22 K/ L 1.32-3.57 rrry=224) MONOCYTES ABSOLUTE COUNT (BEAKER) (test 0.34 K/ L 0.30-0.82 amui=428) EOSINOPHILS ABSOLUTE COUNT (BEAKER) (test 0.20 K/ L 0.04-0.54 ngff=189) BASOPHILS ABSOLUTE COUNT (BEAKER) (test 0.04 K/ L 0.01-0.08 ebyk=082) IMMATURE GRANULOCYTES-RELATIVE PERCENT (BEAKER) 1 % 0-1 (test pqjm=3009) [id number] 06:28:00 Test Item Value Reference Range Comments PARTIAL THROMBOPLASTIN TIME (BEAKER) (test 30.6 seconds 22.5-36.0 zhzo=470) POCT-GLUCOSE [id number] 06:01:00 Test Item Value Reference Range Comments POC-GLUCOSE METER (BEAKER) 266 mg/dL 70-110 TESTED AT [address] (test hiix=9303) [place] [id number] POCT-GLUCOSE [id number] 04:57:00 Test Item Value Reference Range Comments POC-GLUCOSE METER (BEAKER) 271 mg/dL 70-110 TESTED AT [address] (test xivf=1452) [facility] [address] POCT-GLUCOSE [id number] 04:05:00 Test Item Value Reference Range Comments POC-GLUCOSE METER (BEAKER) 308 mg/dL 70-110 Notified HAYLEE BOSS/TESTED AT [facility] (test guli=6600) [address] [place] [address] POCT-GLUCOSE [id number] 02:57:00 Test Item Value Reference Range Comments POC-GLUCOSE METER (BEAKER) 343 mg/dL 70-110 Notified HAYLEE BOSS/TESTED AT [facility] (test novk=7324) [address] [place] [address] RAD, CHEST, 1 VIEW, NON [id number] 02:27:00Reason for exam:->mediastinal wideningShould this be performed at the bedside?->YesFINAL REPORT Chest, 1 view. History: Mediastinal widening Comparison: Plain radiograph the chest dated 02/03/2004 IMPRESSION: The cardiomediastinal silhouette and pulmonary vasculature are within normal limits for a portable exam. If there is persistent clinical concern for mediastinal widening, recommend further evaluation with upright PA and lateral radiograph. The lungs areclear without evidence of consolidation or effusion. The soft tissues and osseous structures are intact. Signed: Wilmer Kline Verified Date/Time: 01/07/2019 02:27:45 POCT-GLUCOSE [id number] 01:57:00 Test Item Value Reference Range Comments POC-GLUCOSE METER (BEAKER) 369 mg/dL 70-110 TESTED AT [address] (test bhha=7215) [place] [id number] POCT-GLUCOSE [id number] 01:06:00 Test Item Value Reference Range Comments POC-GLUCOSE METER (BEAKER) 395 mg/dL 70-110 Notified HAYLEE BOSS/TESTED AT [facility] (test jfbx=2516) [address] [place] [address] TROPONIN [id number] 00:36:00 Test Item Value Reference Range Comments TROPONIN I (BEAKER) (test esil=974) 0.01 ng/mL 0.00-0.03 Troponin I (TnI) levels must be interpreted in the context of the presenting symptoms and the clinical findings. Elevated TnI levels indicate myocardial damage, but are not specific for ischemic heart disease. Elevated TnI levels are seen in patients with other cardiac conditions (including myocarditis and congestive heart failure), and slight TnI elevations occur in patients with other conditions, including sepsis, renal failure, acidosis, acute neurological disease, and persistent tachyarrhythmia.B-TYPE NATRIURETIC FACTOR (BNP) 00:35:00 Test Item Value Reference Range Comments B-TYPE NATRIURETIC PEPTIDE (BEAKER) (test 151 pg/mL 0-100 xfzr=283) [id number] 00:19:00 Test Item Value Reference Range Comments PARTIAL THROMBOPLASTIN TIME (BEAKER) (test 28.2 seconds 22.5-36.0 irys=211) Prior to initiating heparinPOCT-GLUCOSE [id number] 00:16:00 Test Item Value Reference Range Comments POC-GLUCOSE METER (BEAKER) 413 mg/dL 70-110 TESTED AT [address] (test npbw=1067) [place] [id number] POCT-GLUCOSE [id number] 23:10:00 Test Item Value Reference Range Comments POC-GLUCOSE METER (BEAKER) 452 mg/dL 70-110 Notified HAYLEE BOSS/TESTED AT [facility] (test ktwq=8579) [address] [facility] [address] POCT-GLUCOSE [id number] 22:06:00 Test Item Value Reference Range Comments POC-GLUCOSE METER (BEAKER) 383 mg/dL 70-[address] [facility] [address] (test exgg=2833) [facility] [address] CT, BRAIN, WITHOUT [id number] 21:38:00FINAL REPORT CT Head without contrast CLINICAL HISTORY: Subdural hematoma TECHNIQUE : Contiguous axial images through the head without contrast. This exam was performed according to the departmental dose optimization program which includes automated exposure control, adjustment of the mA and/or kV according to the patient size, and/or use of an iterative reconstruction technique. COMPARISON: None FINDINGS:Asymmetric thickening of the right tentorial leaflet is concerning for thin subdural hematoma. Thin hyperdensity along the right cerebral convexity may be artifactual versus additional focus of thin subdural hematoma. Remote right cerebellar hemisphere infarction. No acute intracranial infarction is identified. Mild generalized parenchymal volume loss. Intracranial vascularcalcifications. Chronic microvascular ischemic changes. Subgaleal hematoma at the vertex. Ventricles are normal in size and configuration. There is no hydrocephalus, midline shift, or significant mass effect. Basilar cisterns are patent. The skull is intact. The visualized paranasal sinuses are well-aerated. Intraorbital contents are unremarkable. IMPRESSION: Asymmetric thickening of the right tentorial leaflet is concerning for thin subdural hematoma. Thin hyperdensity along the right cerebral convexity may be artifactual versus additional focus of thin subdural hematoma. Chronic ischemic and involutional changes as described above. Per electronic medical record team aware of the significant findings of the examination at time of dictation. Signed: Wilmer Kline Verified Date/Time: 02/2019 21:38:52 Electronically signed by: WILMER KLINE MD on 02/2019 09:38 [facility] [id number] 21:12:00 Test Item Value Reference Range Comments SODIUM (BEAKER) (test 134 meq/L 136-145 ahxc=586) POTASSIUM (BEAKER) (test 4.9 meq/L 3.5-5.1 Specimen slightly ukvb=624) hemolyzed CHLORIDE (BEAKER) (test 107 meq/L 98-107 ifsc=940) CO2 (BEAKER) (test 19 meq/L 22-29 vott=753) BLOOD UREA NITROGEN 36 mg/dL 7-21 (BEAKER) (test alhk=121) CREATININE (BEAKER) (test 1.95 mg/dL 0.57-1.25 Specimen slightly rnjf=127) hemolyzed GLUCOSE RANDOM (BEAKER) 311 mg/dL 70-105 (test ywhn=111) CALCIUM (BEAKER) (test 8.5 mg/dL 8.4-10.2 papv=979) EGFR (BEAKER) (test 36 mL/min/1.73 sq m ESTIMATED GFR IS NOT zwmr=6724) ACCURATE CREATININE CLEARANCE IN PREDICTING GLOMERULAR FILTRATION RATE. ESTIMATED GFR IS NOT APPLICABLE FOR DIALYSIS PATIENTS. HEMOGLOBIN [id number] 20:17:00 Test Item Value Reference Range Comments HEMOGLOBIN A1C (BEAKER) (test ypsm=021) 11.9 % 4.3-6.1 TROPONIN [id number] 19:52:00 Test Item Value Reference Range Comments TROPONIN I (BEAKER) (test twod=037) < ng/mL 0.00-0.03 Troponin I (TnI) levels must be interpreted in the context of the presenting symptoms and the clinical findings. Elevated TnI levels indicate myocardial damage, but are not specific for ischemic heart disease. Elevated TnI levels are seen in patients with other cardiac conditions (including myocarditis and congestive heart failure), and slight TnI elevations occur in patients with other conditions, including sepsis, renal failure, acidosis, acute neurological disease, and persistent tachyarrhythmia.HEPATIC FUNCTION [id number] 19:46: 00 Test Item Value Reference Range Comments TOTAL PROTEIN (BEAKER) (test 6.3 gm/dL 6.0-8.3 Specimen slightly hemolyzed iojp=835) ALBUMIN (BEAKER) (test 2.8 g/dL 3.5-5.0 Specimen slightly hemolyzed mshj=3803) BILIRUBIN TOTAL (BEAKER) (test 0.4 mg/dL 0.2-1.2 Specimen slightly hemolyzed vaix=764) BILIRUBIN DIRECT (BEAKER) (test 0.1 mg/dL 0.1-0.5 Specimen slightly hemolyzed gkhf=432) ALKALINE PHOSPHATASE (BEAKER) 104 U/L 40-150 (test octv=643) AST (SGOT) (BEAKER) (test 29 U/L 5-34 Specimen slightly hemolyzed lnmn=179) ALT (SGPT) (BEAKER) (test 23 U/L 6-55 Specimen slightly hemolyzed rehf=491) Specimen moderately [id number] 19:32:00 Test Item Value Reference Range Comments PARTIAL THROMBOPLASTIN TIME (BEAKER) (test 28.1 seconds 22.5-36.0 aocy=783) PROTHROMBIN [id number] 19:31:00 Test Item Value Reference Range Comments PROTIME (BEAKER) (test zynm=969) 11.4 seconds 11.9-14.2 INR (BEAKER) (test hbrd=684) 0.9 <=5.9 Effective 09/23/2018: PT Reference Range ChangeNew: 11.9-14.2 Previous: 11.7- 14.7RECOMMENDED COUMADIN/WARFARIN INR THERAPY RANGESSTANDARD DOSE: 2.0-3.0 Includes: PROPHYLAXIS for venous thrombosis, systemic embolization; TREATMENT for venous thrombosis and/or pulmonary embolus.HIGH RISK: Target INR is2.5-3.5 for patients wiht mechanical heart valves.CBC W/PLT COUNT & AUTO [id number] 19:25:00 Test Item Value Reference Range Comments WHITE BLOOD CELL COUNT (BEAKER) (test vwvp=539) 5.2 K/ L 3.5-10.5 RED BLOOD CELL COUNT (BEAKER) (test eqgg=205) 3.84 M/ L 4.63-6.08 HEMOGLOBIN (BEAKER) (test usuy=731) 12.2 GM/DL 13.7-17.5 HEMATOCRIT (BEAKER) (test wnxo=013) 34.6 % 40.1-51.0 MEAN CORPUSCULAR VOLUME (BEAKER) (test mgyl=382) 90.1 fL 79.0-92.2 MEAN CORPUSCULAR HEMOGLOBIN (BEAKER) (test 31.8 pg 25.7-32.2 bugc=936) MEAN CORPUSCULAR HEMOGLOBIN CONC (BEAKER) (test 35.3 GM/DL 32.3-36.5 phfh=447) RED CELL DISTRIBUTION WIDTH (BEAKER) (test 13.6 % 11.6-14.4 enpk=869) PLATELET COUNT (BEAKER) (test sudf=391) 140 K/CU MM 150-450 MEAN PLATELET VOLUME (BEAKER) (test bpln=561) 11.8 fL 9.4-12.4 NUCLEATED RED BLOOD CELLS (BEAKER) (test 0 /100 WBC 0-0 mhxm=020) NEUTROPHILS RELATIVE PERCENT (BEAKER) (test 54 % vwnl=509) LYMPHOCYTES RELATIVE PERCENT (BEAKER) (test 36 % wqoh=438) MONOCYTES RELATIVE PERCENT (BEAKER) (test 5 % ezru=603) EOSINOPHILS RELATIVE PERCENT (BEAKER) (test 3 % ztnq=399) BASOPHILS RELATIVE PERCENT (BEAKER) (test 1 % nomo=950) NEUTROPHILS ABSOLUTE COUNT (BEAKER) (test 2.82 K/ L 1.78-5.38 dfxv=549) LYMPHOCYTES ABSOLUTE COUNT (BEAKER) (test 1.89 K/ L 1.32-3.57 evoj=782) MONOCYTES ABSOLUTE COUNT (BEAKER) (test 0.28 K/ L 0.30-0.82 yjyz=159) EOSINOPHILS ABSOLUTE COUNT (BEAKER) (test 0.17 K/ L 0.04-0.54 jnxu=655) BASOPHILS ABSOLUTE COUNT (BEAKER) (test 0.04 K/ L 0.01-0.08 gpfg=171) IMMATURE GRANULOCYTES-RELATIVE PERCENT (BEAKER) 1 % 0-1 (test feee=7802) POCT-GLUCOSE [id number] 17:51:00 Test Item Value Reference Range Comments POC-GLUCOSE METER (BEAKER) 342 mg/dL 70-110 Notified HAYLEE BOSS/TESTED AT [facility] (test garj=7813) [address] [facility] [address]
[2019-04-03] MEDS ORDERED: NA CHLORIDE 0.9% 1,000 ML ONE (06:08)
[2019-04-03] MEDS ORDERED: ONDANSETRON 4 MG/2 ML VIAL ONE ×3 (06:08→09:48)
[2019-04-03 06:23] LABS: Protime INR 0.94
[2019-04-03 06:24] LABS: Absolute Lymphocytes (CBC) 1.8 K/uL (0.7-4.9); Hematocrit 47.7 % (39.6-49.0); Lymphocytes % 26.5 % (15.3-44.8); MPV 10.1 fL (7.6-11.3)
[2019-04-03 06:50] LABS: ALT/SGPT 30 U/L (12-78); AST/SGOT 15 U/L (15-37); Albumin 2.9 g/dL (3.4-5.0); Alkaline Phosphatase 156 U/L (45-117); BUN Blood Urea Nitrogen 32 mg/dL (7-18); Bicarbonate 30 mmol/L (21-32); Bilirubin Direct 0.1 mg/dL (0-0.2); Bilirubin Total 0.6 mg/dL (0.2-1.0); Magnesium 2.4 mg/dL (1.8-2.4); NT PRO-BNP 259 pg/mL (<125); Potassium 3.3 mmol/L (3.5-5.1); Protein, Total 7.5 g/dL (6.4-8.2); Sodium Level 136 mmol/L (136-145); Troponin (Emerg Dept Use Only) < 0.02 ng/mL (0.0-0.045)
[2019-04-03 06:51] LABS: Glucose Level 576 mg/dL (74-106)
[2019-04-03] MEDS ORDERED: POTASSIUM 25 MEQ EFFERV TAB ONE (07:23)
--- NOTE | 2019-04-03 07:23 | RAD REPORT ---
EXAM DESCRIPTION: CT - Stone Protocol - 04/03/2019 7:06 am CLINICAL HISTORY: Abdominal pain. Vomiting COMPARISON: 01/14 TECHNIQUE: Computed axial tomography of the abdomen pelvis was obtained without oral or IV contrast. Lack of IV and oral contrast limits evaluation of solid organs, bowel, and vessels. Coronal reformat tin images were obtained and reviewed. All CT scans are performed using dose optimization technique as appropriate and may include automated exposure control or mA/KV adjustment according to patient size. FINDINGS: A renal calculus is not seen. An ureteral calculus is not noted. A bladder calculus is not present. Cirrhosis Spleen, pancreas and adrenals appear grossly normal There is no evidence of diverticulitis. The appendix appears normal Small umbilical hernia. Thickening of the wall of the distal esophagus IMPRESSION: Negative for a genitourinary calculus Thickening of the wall of the distal esophagus may indicate esophagitis
[2019-04-03] MEDS ORDERED: INSULIN -REGULAR HUMAN 50 UNIT/0.5 ML ML ONE ×2 (07:24→09:03)
--- NOTE | 2019-04-03 07:38 | ER ---
Nurse's Notes [facility] Name: Wero Kwong Sr Age: 53 yrs Sex: Male : 1965 Arrival Date: 04/03/2019 Time: 05:32 Bed 14 Private MD: Diagnosis: Unspecified cirrhosis of liver;Vomiting;Type 1 diabetes mellitus-poorly controlled;Unspecified kidney failure-renal insufficency/failure;Esophagitis Presentation: 04/03 05:44 Presenting complaint: Patient states: he has been vomiting since Friday after eating or bb drinking, denies diarrhea, has upper abdominal pain and stomach pain, also his feet have been swelling more lately, pt states he has heart stents which are "collapsing" which he is waiting for his insurance to kick in April. Transition of care: patient was not received from another setting of care. Onset of symptoms was March 28, 2019. Risk Assessment: Do you want to hurt yourself or someone else? Patient reports no desire to harm self or others. Initial Sepsis Screen: Does the patient meet any 2 criteria? No. Patient's initial sepsis screen is negative. Does the patient have a suspected source of infection? No. Patient's initial sepsis screen is negative. Care prior to arrival: None. 05:44 Method Of Arrival: Ambulatory 05:44 Acuity: [facility] [place] [facility] 3 bb Historical: - Allergies: 05:51 Codeine; bb 05:51 Hydrocodone-Acetaminophen; bb 05:51 Morphine; bb - Home Meds: 05:51 travatan eye drops [Active]; Humulin 70/30 100 unit/mL (70-30) Sub-Q susp [Active]; bb lisinopril 10 mg Oral tab 1 tab once daily [Active]; citalopram 20 mg tab 1 tab once daily [Active]; clopidogrel 75 mg Oral tab 1 tab once daily [Active]; levetiracetam 500 mg Oral tab 2 tabs daily [Active]; gabapentin 300 mg Oral cap 6 caps Take 6 capsules by mouth every morning and 4 every evening [Active]; simvastatin 40 mg Oral tab 1 tab once daily [Active]; acetazolamide 500 mg Oral cpER 1 cap 2 times per day [Active]; furosemide 40 mg Oral tab 1 tab 2 times per day [Active]; - PMHx: 05:51 CAD; CVA; Diabetes - IDDM; High Cholesterol; Hypertension; Myocardial infarction; bb neuropathy; Seizures; - PSHx: 05:51 cardiac stents; Cholecystectomy; bb - Immunization history:: Adult Immunizations up to date. - Social history:: Smoking status: Patient uses tobacco products, denies chronic smoking, but will smoke occasionally. - Ebola Screening: : No symptoms or risks identified at this time. - Family history:: not pertinent. Screenin:01 Abuse screen: Denies threats or abuse. Denies injuries from another. Nutritional wh screening: No deficits noted. Tuberculosis screening: No symptoms or risk factors identified. Fall Risk None identified. Assessment: 06:02 General: Appears in no apparent distress. Behavior is calm, cooperative, appropriate wh for age. Pain: Denies pain. Neuro: Level of Consciousness is awake, alert, obeys commands, Oriented to person, place, time, situation, Appropriate for age. Cardiovascular: Heart tones S1 S2. Respiratory: Airway is patent Respiratory effort is even, unlabored, Respiratory pattern is regular, symmetrical, Breath sounds are clear bilaterally. GI: Abdomen is flat, non-distended, Bowel sounds present X 4 quads. Abd is soft and non tender X 4 quads. Reports nausea, vomiting. : No signs and/or symptoms were reported regarding the genitourinary system. EENT: No signs and/or symptoms were reported regarding the EENT system. Derm: Skin is intact, is healthy with good turgor, Skin is pink, warm \\T\\ dry. normal. Musculoskeletal: Circulation, motion, and sensation intact. 06:02 Cardiovascular: Edema is 3+ to left ankle, left foot, right ankle and right foot. 06:56 Reassessment: Patient appears in no apparent distress at this time. No changes from previously documented assessment. Patient and/or family updated on plan of care and expected duration. Pain level reassessed. Patient is alert, oriented x 3, equal unlabored respirations, skin warm/dry/pink. 07:30 Reassessment: Patient appears in no apparent distress at this time. Patient and/or ph family updated on plan of care and expected duration. Pain level reassessed. Patient is alert, oriented x 3, equal unlabored respirations, skin warm/dry/pink. Pt c/o abdominal pain and nausea, ERP notified, see MAR. 07:56 Reassessment: Patient appears in no apparent distress at this time. Patient and/or ph family updated on plan of care and expected duration. Pain level reassessed. Patient is alert, oriented x 3, equal unlabored respirations, skin warm/dry/pink. Pt reports that pain and nausea have improved, d/c pending BGL >300, will recheck at 0820. 08:35 Reassessment: Patient appears in no apparent distress at this time. Patient and/or ph family updated on plan of care and expected duration. Pain level reassessed. Patient is alert, oriented x 3, equal unlabored respirations, skin warm/dry/pink. BGL remains > 300, additional IVP insulin ordered, see MAR, d/c pending decrease in BGL. 10:00 Reassessment: Patient appears in no apparent distress at this time. Patient and/or ph family updated on plan of care and expected duration. Pain level reassessed. Patient is alert, oriented x 3, equal unlabored respirations, skin warm/dry/pink. Repeat BGL decreased, pt d/c home w/ SO, instructed to follow up w/ transaction processor and GI, and to return to ED for worsening symptoms, d/c home w/ SO. Vital Signs: 05:51 BP 152 / 98; Pulse 103; Resp 16 S; Temp 97.4(O); Pulse Ox 98% on R/A; Weight 86.18 kg bb (R); Height 5 ft. 7 in. (170.18 cm) (R); Pain 8/10; 06:30 BP 118 / 83; Pulse 98; Resp 18; Pulse Ox 98% on R/A; wh 07:56 BP 122 / 80; Pulse 94; Resp 18; Pulse Ox 96% on R/A; ph 09:00 BP 117 / 82; Pulse 91; Resp 18; Temp 97.0; Pulse Ox 99% on R/A; ph 05:51 Body Mass Index 29.76 (86.18 kg, 170.18 cm) ED Course: 05:32 Patient arrived in ED. cl3 05:33 Jr Sandoval is Primary Nurse. wh 05:36 Mohinder Tejada MD is Attending Physician. vanessa 05:47 Triage completed. bb 05:51 Arm band placed on Patient placed in an exam room, on a stretcher, on pulse oximetry. bb Family accompanied patient. 06:01 Patient has correct armband on for positive identification. Placed in gown. Bed in low wh position. Call light in reach. Side rails up X 1. monitor tech on. Pulse ox on. NIBP on. 06:07 Inserted saline lock: 20 gauge in right forearm, using aseptic technique. Blood oe collected. 07:06 CT completed. Patient tolerated procedure well. Patient moved back from CT. mw3 07:06 CT Stone Protocol In Process Unspecified. EDMS 07:37 Aurora Herrmann MD is Referral Physician. vanessa 07:38 Lola Morales MD is Referral Physician. vanessa 07:46 XRAY Chest (1 view) In Process Unspecified. EDMS 08:41 Repeat lab(s) drawn. by me, sent to lab. Urine collected: clean catch specimen, clear, jb1 husam colored. 10:15 No provider procedures requiring assistance completed. IV discontinued, intact, ph bleeding controlled, No redness/swelling at site. Pressure dressing applied. 10:17 Peggy Sahu, RN is Primary Nurse. ph Administered Medications: 06:13 Drug: NS 0.9% 1000 ml Route: IV; Rate: 125 ml/hr; Site: right forearm; wh 07:53 Follow up: Rate change 500 bolus ph 10:00 Follow up: Response: No adverse reaction; IV Status: Completed infusion ph 06:13 Drug: Zofran 4 mg Route: IVP; Site: right forearm; wh 07:15 Follow up: Response: No adverse reaction ph 07:30 Drug: Potassium Effervescent Tablet 25 mEq Route: PO; ph 07:45 Follow up: Response: No adverse reaction ph 07:30 Drug: Insulin Regular Human 10 units {Co-Signature: em (Ronnie Wilhelm LAMP DECORATOR).} Route: IVP; ph Site: right forearm; 08:30 Follow up: Response: No adverse reaction; Blood sugar is lowered ph 07:30 Drug: Insulin Regular Human 10 units {Co-Signature: em (Ronnie Wilhelm LAMP DECORATOR).} Route: ph Sub-Q; Site: right upper arm; 08:30 Follow up: Response: No adverse reaction; Blood sugar is lowered ph 07:45 Drug: ProTONIX 40 mg Route: IVP; Site: right forearm; ph 08:36 Follow up: Response: No adverse reaction ph 07:45 Drug: Zofran 4 mg Route: IVP; Site: right forearm; ph 08:15 Follow up: Response: No adverse reaction; Nausea is decreased ph 07:47 Drug: fentaNYL (PF) 25 mcg Route: IVP; Site: right forearm; ph 08:15 Follow up: Response: No adverse reaction; Pain is decreased; RASS: Alert and Calm (0) ph 09:00 Drug: Insulin Regular Human 10 units {Co-Signature: em (Ronnie Wilhelm LAMP DECORATOR).} Route: IVP; ph Site: right forearm; 09:45 Follow up: Response: No adverse reaction; Blood sugar is lowered ph 10:16 Not Given (Other Intervention Used): fentaNYL (PF) 25 mcg IVP once; RASS on ADMIN: ph Combtv4, Very Agttd3, Agttd2, Rstlss1, AlertClm0, Drwsy-1, Lt Sdtn-2, Mod Sdtn-3, Dp Sdtn-4, UnArsble-5 Intake: 12/ 18:30 IV: 1000ml; Total: 1000ml. em Outcome: 12 07:38 Discharge ordered by . vanessa 10:18 Patient left the ED. ph 10:18 Discharged to home via wheelchair, with significant other. ph 10:18 Condition: improved 10:18 Discharge instructions given to patient, significant other, Instructed on discharge instructions, follow up and referral plans. medication usage, Demonstrated understanding of instructions, follow-up care, medications, Prescriptions given X 2. Signatures: Dispatcher [employer] Sreedhar Sloan jb1 Mohinder Tejada MD MD cha Munoz, Edgar, LVN LAMP DECORATOR em Donna Coronel, RN RN Peggy Fink RN RN Pola Fan Winsy Marisol Murphy mw3 Penny Reza cl3 Ronnie GUANN em Corrections: (The following items were deleted from the chart) 07:03 06:02 Cardiovascular: Heart tones S1 S2 [facility] 07:04 07:03 Cardiovascular: Edema is 3+ to left ankle, left foot, right ankle and right foot [facility]
--- NOTE | 2019-04-03 07:39 | EDPHYS ---
Physician Documentation [facility] Name: Wero Kwong Sr Age: 53 yrs Sex: Male : 1965 Arrival Date: 04/03/2019 Time: 05:32 Bed 14 Private MD: CYRUS Physician Mohinder Tejada HPI: 04/03 06:42 This 53 yrs old Male presents to ER via Ambulatory with complaints of vanessa Nausea/Vomiting. 06:42 The patient presents to the emergency department with nausea, vomiting, that is vaenssa intermittent. Onset: The symptoms/episode began/occurred 5 day(s) ago. Possible causes: unknown. The symptoms are aggravated by nothing. The symptoms are alleviated by nothing. Associated signs and symptoms: The patient has no apparent associated signs or symptoms. Severity of symptoms: At their worst the symptoms were mild in the emergency department the symptoms are unchanged. The patient has not experienced similar symptoms in the past. Historical: - Allergies: 05:51 Codeine; bb 05:51 Hydrocodone-Acetaminophen; bb 05:51 Morphine; bb - Home Meds: 05:51 travatan eye drops [Active]; Humulin 70/30 100 unit/mL (70-30) Sub-Q susp [Active]; bb lisinopril 10 mg Oral tab 1 tab once daily [Active]; citalopram 20 mg tab 1 tab once daily [Active]; clopidogrel 75 mg Oral tab 1 tab once daily [Active]; levetiracetam 500 mg Oral tab 2 tabs daily [Active]; gabapentin 300 mg Oral cap 6 caps Take 6 capsules by mouth every morning and 4 every evening [Active]; simvastatin 40 mg Oral tab 1 tab once daily [Active]; acetazolamide 500 mg Oral cpER 1 cap 2 times per day [Active]; furosemide 40 mg Oral tab 1 tab 2 times per day [Active]; - PMHx: 05:51 CAD; CVA; Diabetes - IDDM; High Cholesterol; Hypertension; Myocardial infarction; bb neuropathy; Seizures; - PSHx: 05:51 cardiac stents; Cholecystectomy; bb - Immunization history:: Adult Immunizations up to date. - Social history:: Smoking status: Patient uses tobacco products, denies chronic smoking, but will smoke occasionally. - Ebola Screening: : No symptoms or risks identified at this time. - Family history:: not pertinent. ROS: 06:42 Constitutional: Negative for fever, chills, and weight loss, Eyes: Negative for injury, vanessa pain, redness, and discharge, ENT: Negative for injury, pain, and discharge, Neck: Negative for injury, pain, and swelling, Cardiovascular: Negative for chest pain, palpitations, and edema, Respiratory: Negative for shortness of breath, cough, wheezing, and pleuritic chest pain, Back: Negative for injury and pain, : Negative for injury, bleeding, discharge, and swelling, MS/Extremity: Negative for injury and deformity, Skin: Negative for injury, rash, and discoloration, Neuro: Negative for headache, weakness, numbness, tingling, and seizure, Psych: Negative for depression, anxiety, suicide ideation, homicidal ideation, and hallucinations, Allergy/Immunology: Negative for hives, rash, and allergies, Endocrine: Negative for neck swelling, polydipsia, polyuria, polyphagia, and marked weight changes, Hematologic/Lymphatic: Negative for swollen nodes, abnormal bleeding, and unusual bruising. 06:42 Abdomen/GI: Positive for nausea and vomiting. Exam: 06:42 Constitutional: This is a well developed, well nourished patient who is awake, alert, vanessa and in no acute distress. Head/Face: Normocephalic, atraumatic. Eyes: Pupils equal round and reactive to light, extra-ocular motions intact. Lids and lashes normal. Conjunctiva and sclera are non-icteric and not injected. Cornea within normal limits. Periorbital areas with no swelling, redness, or edema. ENT: Nares patent. No nasal discharge, no septal abnormalities noted. Tympanic membranes are normal and external auditory canals are clear. Oropharynx with no redness, swelling, or masses, exudates, or evidence of obstruction, uvula midline. Mucous membranes moist. Neck: Trachea midline, no thyromegaly or masses palpated, and no cervical lymphadenopathy. Supple, full range of motion without nuchal rigidity, or vertebral point tenderness. No Meningismus. Chest/axilla: Normal chest wall appearance and motion. Nontender with no deformity. No lesions are appreciated. Cardiovascular: Regular rate and rhythm with a normal S1 and S2. No gallops, murmurs, or rubs. Normal PMI, no JVD. No pulse deficits. Respiratory: Lungs have equal breath sounds bilaterally, clear to auscultation and percussion. No rales, rhonchi or wheezes noted. No increased work of breathing, no retractions or nasal flaring. Back: No spinal tenderness. No costovertebral tenderness. Full range of motion. Skin: Warm, dry with normal turgor. Normal color with no rashes, no lesions, and no evidence of cellulitis. MS/ Extremity: Pulses equal, no cyanosis. Neurovascular intact. Full, normal range of motion. Neuro: Awake and alert, GCS 15, oriented to person, place, time, and situation. Cranial nerves II-XII grossly intact. Motor strength 5/5 in all extremities. Sensory grossly intact. Cerebellar exam normal. Normal gait. Psych: Awake, alert, with orientation to person, place and time. Behavior, mood, and affect are within normal limits. 06:42 Abdomen/GI: Inspection: abdomen appears normal, distension, Bowel sounds: normal, Palpation: abdomen is soft and non-tender, Liver: no appreciated palpable abnormalities, Hernia: not appreciated. Vital Signs: 05:51 BP 152 / 98; Pulse 103; Resp 16 S; Temp 97.4(O); Pulse Ox 98% on R/A; Weight 86.18 kg bb (R); Height 5 ft. 7 in. (170.18 cm) (R); Pain 8/10; 06:30 BP 118 / 83; Pulse 98; Resp 18; Pulse Ox 98% on R/A; wh 07:56 BP 122 / 80; Pulse 94; Resp 18; Pulse Ox 96% on R/A; ph 09:00 BP 117 / 82; Pulse 91; Resp 18; Temp 97.0; Pulse Ox 99% on R/A; ph 05:51 Body Mass Index 29.76 (86.18 kg, 170.18 cm) MDM: 05:36 Patient medically screened. [facility] 06:45 Data reviewed: vital signs, nurses notes, lab test result(s), EKG, radiologic studies, [facility] CT scan, plain films. 04/03 05:53 Order name: Basic Metabolic Panel; Complete Time: 06:54 bb 04/03 05:53 Order name: CBC with Diff; Complete Time: 06:49 bb 04/03 05:53 Order name: LFT's; Complete Time: 06:54 bb 04/03 05:53 Order name: Magnesium; Complete Time: 06:54 04/03 05:53 Order name: NT PRO-BNP; Complete Time: 06:54 04/03 05:53 Order name: PT-INR; Complete Time: 06:49 04/03 05:53 Order name: Troponin (emerg Dept Use Only); Complete Time: 06:54 04/03 06:01 Order name: Lipase; Complete Time: 06:49 [facility] 04/03 06:41 Order name: AMMONIA; Complete Time: 07:21 [facility] 04/03 08:09 Order name: Urine Culture [facility] 04/03 08:25 Order name: Glucose ph 04/03 08:34 Order name: Glucose, Ancillary Testing EDMS 04/03 08:44 Order name: Urine Dipstick--Ancillary (enter results) 04/03 10:12 Order name: Glucose, Ancillary Testing [facility] 04/03 05:53 Order name: XRAY Chest (1 view) 04/03 05:53 Order name: EKG; Complete Time: 05:54 04/03 05:53 Order name: Cardiac monitoring; Complete Time: 06:01 04/03 05:53 Order name: EKG - Nurse/Tech; Complete Time: 06:01 04/03 05:53 Order name: IV Saline Lock; Complete Time: 06:01 04/03 06:42 Order name: CT Stone Protocol; Complete Time: 07:33 [facility] 04/03 05:53 Order name: Labs collected and sent; Complete Time: 06:01 04/03 05:53 Order name: O2 Per Protocol; Complete Time: 06:01 04/03 05:53 Order name: O2 Sat Monitoring; Complete Time: 06:01 04/03 07:22 Order name: Blood Glucose Level; Complete Time: 08:42 [facility] 04/03 08:09 Order name: Urine Dipstick-Ancillary (obtain specimen); Complete Time: 08:42 [facility] Administered Medications: 06:13 Drug: NS 0.9% 1000 ml Route: IV; Rate: 125 ml/hr; Site: right forearm; 07:53 Follow up: Rate change 500 bolus ph 10:00 Follow up: Response: No adverse reaction; IV Status: Completed infusion ph 06:13 Drug: Zofran 4 mg Route: IVP; Site: right forearm; 07:15 Follow up: Response: No adverse reaction ph 07:30 Drug: Potassium Effervescent Tablet 25 mEq Route: PO; ph 07:45 Follow up: Response: No adverse reaction ph 07:30 Drug: Insulin Regular Human 10 units {Co-Signature: em (Ronnie Wilhelm CLARITY DEVELOPER).} Route: IVP; ph Site: right forearm; 08:30 Follow up: Response: No adverse reaction; Blood sugar is lowered ph 07:30 Drug: Insulin Regular Human 10 units {Co-Signature: em (Ronnie Wilhelm CLARITY DEVELOPER).} Route: ph Sub-Q; Site: right upper arm; 08:30 Follow up: Response: No adverse reaction; Blood sugar is lowered ph 07:45 Drug: ProTONIX 40 mg Route: IVP; Site: right forearm; ph 08:36 Follow up: Response: No adverse reaction ph 07:45 Drug: Zofran 4 mg Route: IVP; Site: right forearm; ph 08:15 Follow up: Response: No adverse reaction; Nausea is decreased ph 07:47 Drug: fentaNYL (PF) 25 mcg Route: IVP; Site: right forearm; ph 08:15 Follow up: Response: No adverse reaction; Pain is decreased; RASS: Alert and Calm (0) ph 09:00 Drug: Insulin Regular Human 10 units {Co-Signature: em (Ronnie Wilhelm CLARITY DEVELOPER).} Route: IVP; ph Site: right forearm; 09:45 Follow up: Response: No adverse reaction; Blood sugar is lowered ph 10:16 Not Given (Other Intervention Used): fentaNYL (PF) 25 mcg IVP once; RASS on ADMIN: ph Combtv4, Very Agttd3, Agttd2, Rstlss1, AlertClm0, Drwsy-1, Lt Sdtn-2, Mod Sdtn-3, Dp Sdtn-4, UnArsble-5 Disposition: 04/03/19 07:38 Discharged to Home. Impression: Unspecified cirrhosis of liver, Vomiting, Type 1 diabetes mellitus - poorly controlled, Unspecified kidney failure - renal insufficency/failure, Esophagitis. - Condition is Stable. - Discharge Instructions: Type 1 Diabetes Mellitus, Diagnosis, Adult, Esophagitis, Nausea and Vomiting, Adult, Nausea and Vomiting, Adult, Igrw-pk-Wrav, Diabetes Mellitus and Food, Chronic Kidney Disease, Adult, Bfgi-ul-Eeyq, Hypokalemia, Type 1 Diabetes Mellitus, Diagnosis, Adult, Reic-ut-Tdqt, Type 1 Diabetes Mellitus, Self Care, Adult, Geuc-ug-Njqn. - Prescriptions for Zofran 4 mg Oral Tablet - take 1 tablet by ORAL route every 12 hours As needed; 20 tablet. Pepcid 20 mg Oral Tablet - take 1 tablet by ORAL route once daily; 20 tablet. - Medication Reconciliation Form, Thank You Letter, Antibiotic Education, Prescription Opioid Use form. - Follow up: Private Physician; When: 2 - 3 days; Reason: Recheck today's complaints, Continuance of care, Re-evaluation by your physician. Follow up: Aurora Herrmann; When: 2 - 3 days; Reason: Recheck today's complaints, Continuance of care, Re-evaluation by your physician. Follow up: Lola Morales MD; When: 2 - 3 days; Reason: Recheck today's complaints, Continuance of care, Re-evaluation by your physician. - Problem is new. - Symptoms have improved. Signatures: Dispatcher [employer] Mohinder Fletcher MD MD cha Ballard, Brenda, RN RN Peggy Fink RN RN Jr Sandoval Ronnie Wilhelm CLARITY DEVELOPER Corrections: (The following items were deleted from the chart) 07:38 07:38 04/03/2019 07:38 Discharged to Home. Impression: Unspecified cirrhosis of liver; vanessa Vomiting; Type 1 diabetes mellitus - poorly controlled; Unspecified kidney failure - renal insufficency/failure; Esophagitis. Condition is Stable. Discharge Instructions: Type 1 Diabetes Mellitus, Diagnosis, Adult, Nausea and Vomiting, Adult, Nausea and Vomiting, Adult, Glun-mf-Unld, Type 1 Diabetes Mellitus, Diagnosis, Adult, Fcjc-td-Lsci, Type 1 Diabetes Mellitus, Self Care, Adult, Znxl-up-Fhod, Diabetes Mellitus and Food, Chronic Kidney Disease, Adult, Npge-wz-Ouam. Prescriptions for Zofran 4 mg Oral Tablet - take 1 tablet by ORAL route every 12 hours As needed; 20 tablet, Pepcid 20 mg Oral Tablet - take 1 tablet by ORAL route once daily; 20 tablet. and Forms are Medication Reconciliation Form, Thank You Letter, Antibiotic Education, Prescription Opioid Use. Follow up: Private Physician; When: 2 - 3 days; Reason: Recheck today's complaints, Continuance of care, Re-evaluation by your physician. Follow up: Aurora Herrmann; When: 2 - 3 days; Reason: Recheck today's complaints, Continuance of care, Re-evaluation by your physician. Problem is new. Symptoms have improved. vanessa 10:18 07:38 04/03/2019 07:38 Discharged to Home. Impression: Unspecified cirrhosis of liver; ph Vomiting; Type 1 diabetes mellitus - poorly controlled; Unspecified kidney failure - renal insufficency/failure; Esophagitis. Condition is Stable. Discharge Instructions: Type 1 Diabetes Mellitus, Diagnosis, Adult, Nausea and Vomiting, Adult, Nausea and Vomiting, Adult, Axil-kb-Usjn, Type 1 Diabetes Mellitus, Diagnosis, Adult, Jcxi-ov-Zlyj, Type 1 Diabetes Mellitus, Self Care, Adult, Cund-zc-Ychz, Diabetes Mellitus and Food, Chronic Kidney Disease, Adult, Vpss-wx-Mphn. Prescriptions for Zofran 4 mg Oral Tablet - take 1 tablet by ORAL route every 12 hours As needed; 20 tablet, Pepcid 20 mg Oral Tablet - take 1 tablet by ORAL route once daily; 20 tablet. and Forms are Medication Reconciliation Form, Thank You Letter, Antibiotic Education, Prescription Opioid Use. Follow up: Private Physician; When: 2 - 3 days; Reason: Recheck today's complaints, Continuance of care, Re-evaluation by your physician. Follow up: Aurora Herrmann; When: 2 - 3 days; Reason: Recheck today's complaints, Continuance of care, Re-evaluation by your physician. Follow up: Lola Morales; When: 2 - 3 days; Reason: Recheck today's complaints, Continuance of care, Re-evaluation by your physician. Problem is new. Symptoms have improved. vanessa
[2019-04-03] MEDS ORDERED: FENTANYL CITR 100 MCG/2 ML ONE (07:44)
[2019-04-03] MEDS ORDERED: PANTOPRAZOLE 40 MG INJ ONE (07:44)
[2019-04-03 08:51] LABS: Urine Blood 2+ (NEG); Urine Glucose 3+ (NEG); Urine Protein 3+ (NEG); Urine pH 5.5 (5.0-7.0)
--- NOTE | 2019-04-03 09:45 | RAD REPORT ---
EXAM DESCRIPTION: Noah Single View04/03/2019 7:45 am CLINICAL HISTORY: Chest pain COMPARISON: January 2019 FINDINGS: The lungs appear clear of acute infiltrate. The heart is normal size IMPRESSION: No acute abnormalities displayed
[2019-04-03 10:39] VITALS: BP 117/82; TEMP 97; O2SAT 99
--- NOTE | 2019-04-04 06:07 | EKG ---
Test Date: 2019-04-03 Test Time: 05:47:17 Back Roll Lathe Operator: RUFINA MEASUREMENT RESULTS: Intervals: Rate: 100 WI: 140 QRSD: 152 QT: 402 QTc: 518 [place]: P: 43 WI: 140 QRS: 131 T: -15 INTERPRETIVE STATEMENTS: Normal sinus rhythm Right bundle branch block Inferior infarct, age undetermined Abnormal ECG Compared to ECG 01/26/2019 15:09:55 Myocardial infarct finding now present Electronically Signed On 04-04-19 06:06:50 SIGNAL HELPER by David Fabian
== END 2019-04-03 10:18 | disposition home or self-care (01) ==
LOC: ER 05:29
DX: E10.65 Type 1 diabetes mellitus with hyperglycemia (principal); K74.60 Unspecified cirrhosis of liver; E10.22 Type 1 diabetes mellitus with diabetic chronic kidney disease; N18.6 End stage renal disease; F17.210 Nicotine dependence, cigarettes, uncomplicated; K20.9 Esophagitis, unspecified; E78.00 Pure hypercholesterolemia, unspecified; G40.909 Epilepsy, unspecified, not intractable, without status epilepticus; Z95.818 Presence of other cardiac implants and grafts; Z79.4 Long term (current) use of insulin; Z88.5 Allergy status to narcotic agent
CPT/HCPCS: 36415; 71045; 74176; 76377; 80048; 80076; 81003; 82140; 82947; 83690; 83735; 83880; 84484; 85025; 85610; 87086; 87088; 93005; 96361; 96372; 96374; 96375; 99285; C9113; J2405; J3010; J7030

== ENCOUNTER 2019-05-13 20:11 | Emergency (ER) | payer BC, SELFPAY ==
--- OUTSIDE RECORDS SUMMARY | 2019-05-13 20:15 | XMS REPORT ---
:1965 [facility] Address [address] [place] [address] Care Team Providers Name Role Phone BASHIR [...] 119 mg/dL 70-[address] [facility] [address] [place] [address] jdci=8064) [facility] [address] BASIC METABOLIC [id number] 06:16:00 Test Item Value Reference Range Comments SODIUM (BEAKER) (test 139 meq/L 136-145 njvw=383) POTASSIUM (BEAKER) (test 4.5 meq/L 3.5-5.1 dfqs=453) CHLORIDE (BEAKER) (test 109 meq/L 98-107 ovys=180) CO2 (BEAKER) (test 23 meq/L 22-29 nnhz=379) BLOOD UREA NITROGEN 30 mg/dL 7-21 (BEAKER) (test zerw=715) CREATININE (BEAKER) (test 1.87 mg/dL 0.57-1.25 qatg=539) GLUCOSE RANDOM (BEAKER) 219 mg/dL 70-105 (test ebza=794) CALCIUM (BEAKER) (test 8.9 mg/dL 8.4-10.2 wslh=516) EGFR (BEAKER) (test 38 mL/min/1.73 sq m ESTIMATED GFR IS NOT potn=2052) ACCURATE CREATININE CLEARANCE IN PREDICTING GLOMERULAR FILTRATION RATE. ESTIMATED GFR IS NOT APPLICABLE FOR DIALYSIS PATIENTS. CBC W/PLT COUNT & AUTO [id number] 05:42:00 Test Item Value Reference Range Comments WHITE BLOOD CELL COUNT (BEAKER) (test dbnn=495) 4.1 K/ L 3.5-10.5 RED BLOOD CELL COUNT (BEAKER) (test tfqf=547) 3.72 M/ L 4.63-6.08 HEMOGLOBIN (BEAKER) (test hdyj=922) 11.6 GM/DL 13.7-17.5 HEMATOCRIT (BEAKER) (test iyns=425) 33.6 % 40.1-51.0 MEAN CORPUSCULAR VOLUME (BEAKER) (test cfib=699) 90.3 fL 79.0-92.2 MEAN CORPUSCULAR HEMOGLOBIN (BEAKER) (test 31.2 pg 25.7-32.2 znzo=914) MEAN CORPUSCULAR HEMOGLOBIN CONC (BEAKER) (test 34.5 GM/DL 32.3-36.5 jkne=239) RED CELL DISTRIBUTION WIDTH (BEAKER) (test 13.7 % 11.6-14.4 xogp=280) PLATELET COUNT (BEAKER) (test iwkp=191) 170 K/CU MM 150-450 MEAN PLATELET VOLUME (BEAKER) (test mxtc=626) 11.8 fL 9.4-12.4 NUCLEATED RED BLOOD CELLS (BEAKER) (test 0 /100 WBC 0-0 spir=729) NEUTROPHILS RELATIVE PERCENT (BEAKER) (test 53 % uloy=657) LYMPHOCYTES RELATIVE PERCENT (BEAKER) (test 32 % mlww=403) MONOCYTES RELATIVE PERCENT (BEAKER) (test 7 % aerb=801) EOSINOPHILS RELATIVE PERCENT (BEAKER) (test 6 % pinj=332) BASOPHILS RELATIVE PERCENT (BEAKER) (test 1 % vzmu=283) NEUTROPHILS ABSOLUTE COUNT (BEAKER) (test 2.17 K/ L 1.78-5.38 wsch=409) LYMPHOCYTES ABSOLUTE COUNT (BEAKER) (test 1.31 K/ L 1.32-3.57 buyu=896) MONOCYTES ABSOLUTE COUNT (BEAKER) (test 0.29 K/ L 0.30-0.82 jjtk=824) EOSINOPHILS ABSOLUTE COUNT (BEAKER) (test 0.26 K/ L 0.04-0.54 yoxm=861) BASOPHILS ABSOLUTE COUNT (BEAKER) (test 0.03 K/ L 0.01-0.08 ikro=189) IMMATURE GRANULOCYTES-RELATIVE PERCENT (BEAKER) 1 % 0-1 (test wwlq=7681) POCT-GLUCOSE [id number] 20:34:00 Test Item Value Reference Range Comments POC-GLUCOSE METER (BEAKER) 205 mg/dL 70-110 TESTED AT [address] (test oghx=7850) [facility] [address] [address], CHEST, WITHOUT [id number] 18:24:00FINAL REPORT TECHNIQUE: CT scan of the [...] [place] Verified Date/Time: 01/10/2019 18:24:57 Reading Location: [facility] C013Y CT Body Reading Room POCT-GLUCOSE [id number] 17:31 :00 Test Item Value Reference Range Comments POC-GLUCOSE METER (BEAKER) 183 mg/dL 70-110 TESTED AT [address] (test pbkw=9867) [facility] [address] [address], BRAIN, WITHOUT [id number] 14:47:00FINAL REPORT CT, BRAIN, WITHOUT CONTRAST INDICATION: [...] Lubna Lr MDReport Verified Date/Time: 01/10/2019 14:47:25 -[id number] 11:36:00 Test Item Value Reference Range Comments D-DIMER QUANTITATIVE (BEAKER) (test lrpg=958) 2.14 MG/L FEU <0.50 Intended Use: The [...] within 95-100% range.RAD, CHEST, 1 VIEW, NON [id number] 08:17:00Reason for exam:->chest painShould this be performed [...] MDReport Verified Date/Time: 01/10/2019 08:17:19 Reading Location: [facility] B1 C013X Ortho Consult Reading Room TROPONIN [id number] 07:02:00 Test Item Value Reference Range Comments TROPONIN I (BEAKER) (test ocaw=580) 0.02 ng/mL 0.00-0.03 Troponin I (TnI) levels [...] NATRIURETIC PEPTIDE (BEAKER) (test 130 pg/mL 0-100 ajwv=899) BASIC METABOLIC [id number] 06:51:00 Test Item Value Reference Range Comments SODIUM (BEAKER) (test 137 meq/L 136-145 gald=098) POTASSIUM (BEAKER) (test 4.3 meq/L 3.5-5.1 zwvw=469) CHLORIDE (BEAKER) (test 108 meq/L 98-107 jbjm=433) CO2 (BEAKER) (test 21 meq/L 22-29 weno=960) BLOOD UREA NITROGEN 34 mg/dL 7-21 (BEAKER) (test srsi=860) CREATININE (BEAKER) (test 2.00 mg/dL 0.57-1.25 dtxg=767) GLUCOSE RANDOM (BEAKER) 169 mg/dL 70-105 (test tfgs=110) CALCIUM (BEAKER) (test 8.7 mg/dL 8.4-10.2 mghi=420) EGFR (BEAKER) (test 35 mL/min/1.73 sq m ESTIMATED GFR IS NOT frvi=9667) ACCURATE CREATININE CLEARANCE IN PREDICTING GLOMERULAR FILTRATION RATE. ESTIMATED GFR IS NOT APPLICABLE FOR DIALYSIS PATIENTS. CBC W/PLT COUNT & AUTO [id number] 06:27:00 Test Item Value Reference Range Comments WHITE BLOOD CELL COUNT (BEAKER) (test cigr=815) 5.0 K/ L 3.5-10.5 RED BLOOD CELL COUNT (BEAKER) (test kaxr=343) 3.44 M/ L 4.63-6.08 HEMOGLOBIN (BEAKER) (test syff=180) 10.8 GM/DL 13.7-17.5 HEMATOCRIT (BEAKER) (test olxb=778) 31.5 % 40.1-51.0 MEAN CORPUSCULAR VOLUME (BEAKER) (test oafj=730) 91.6 fL 79.0-92.2 MEAN CORPUSCULAR HEMOGLOBIN (BEAKER) (test 31.4 pg 25.7-32.2 wjqi=788) MEAN CORPUSCULAR HEMOGLOBIN CONC (BEAKER) (test 34.3 GM/DL 32.3-36.5 iwyk=933) RED CELL DISTRIBUTION WIDTH (BEAKER) (test 13.7 % 11.6-14.4 rhub=664) PLATELET COUNT (BEAKER) (test lohd=357) 146 K/CU MM 150-450 MEAN PLATELET VOLUME (BEAKER) (test wxwy=578) 12.1 fL 9.4-12.4 NUCLEATED RED BLOOD CELLS (BEAKER) (test 0 /100 WBC 0-0 gujx=137) NEUTROPHILS RELATIVE PERCENT (BEAKER) (test 48 % blxo=432) LYMPHOCYTES RELATIVE PERCENT (BEAKER) (test 37 % celf=121) MONOCYTES RELATIVE PERCENT (BEAKER) (test 8 % ysqb=086) EOSINOPHILS RELATIVE PERCENT (BEAKER) (test 6 % uege=973) BASOPHILS RELATIVE PERCENT (BEAKER) (test 1 % vneb=193) NEUTROPHILS ABSOLUTE COUNT (BEAKER) (test 2.42 K/ L 1.78-5.38 fmtl=042) LYMPHOCYTES ABSOLUTE COUNT (BEAKER) (test 1.83 K/ L 1.32-3.57 ogmi=797) MONOCYTES ABSOLUTE COUNT (BEAKER) (test 0.40 K/ L 0.30-0.82 ozgw=518) EOSINOPHILS ABSOLUTE COUNT (BEAKER) (test 0.30 K/ L 0.04-0.54 hnya=188) BASOPHILS ABSOLUTE COUNT (BEAKER) (test 0.04 K/ L 0.01-0.08 emvk=852) IMMATURE GRANULOCYTES-RELATIVE PERCENT (BEAKER) 0 % 0-1 (test yopa=2196) TROPONIN [id number] 23:52:00 Test Item Value Reference Range Comments TROPONIN I (BEAKER) (test dbtx=487) 0.03 ng/mL 0.00-0.03 Troponin I (TnI) levels [...] acidosis, acute neurological disease, and persistent tachyarrhythmia.POCT-GLUCOSE [id number] 22:03:00 Test Item Value Reference Range Comments POC-GLUCOSE METER (BEAKER) 315 mg/dL 70-110 TESTED AT [address] (test tpsv=5924) [facility] [address] POCT-GLUCOSE [id number] 20:02:00 Test Item Value Reference Range Comments POC-GLUCOSE METER (BEAKER) 250 mg/dL 70-110 TESTED AT [address] (test gazf=8923) [place] [address] TROPONIN [id number] 19:05:00 Test Item Value Reference Range Comments TROPONIN I (BEAKER) (test emmz=477) 0.04 ng/mL 0.00-0.03 Troponin I (TnI) levels [...] acidosis, acute neurological disease, and persistent tachyarrhythmia.POCT-GLUCOSE [id number] 17:40:00 Test Item Value Reference Range Comments POC-GLUCOSE METER (BEAKER) 246 mg/dL 70-[address] [facility] [address] [facility] (test qkfk=4143) [facility] [address] POCT-GLUCOSE [id number] 08:11:00 Test Item Value Reference Range Comments POC-GLUCOSE METER (BEAKER) 243 mg/dL 70-[address] [facility] [address] [facility] (test pnpj=7049) [facility] [address] BASIC METABOLIC [id number] 05:04:00 Test Item Value Reference Range Comments SODIUM (BEAKER) (test 138 meq/L 136-145 ylwk=852) POTASSIUM (BEAKER) (test 4.5 meq/L 3.5-5.1 szxl=534) CHLORIDE (BEAKER) (test 110 meq/L 98-107 fhmm=990) CO2 (BEAKER) (test 22 meq/L 22-29 tixt=758) BLOOD UREA NITROGEN 34 mg/dL 7-21 (BEAKER) (test xtki=889) CREATININE (BEAKER) (test 2.01 mg/dL 0.57-1.25 yebm=891) GLUCOSE RANDOM (BEAKER) 243 mg/dL 70-105 (test pacb=431) CALCIUM (BEAKER) (test 8.5 mg/dL 8.4-10.2 zyga=503) EGFR (BEAKER) (test 35 mL/min/1.73 sq m ESTIMATED GFR IS NOT tlru=9196) ACCURATE CREATININE CLEARANCE IN PREDICTING GLOMERULAR FILTRATION RATE. ESTIMATED GFR IS NOT APPLICABLE FOR DIALYSIS PATIENTS. [id number] 04:56:00 Test Item Value Reference Range Comments PARTIAL THROMBOPLASTIN TIME (BEAKER) (test 35.0 seconds 22.5-36.0 ffce=927) CBC W/PLT COUNT & AUTO [id number] 04:48:00 Test Item Value Reference Range Comments WHITE BLOOD CELL COUNT (BEAKER) (test pigm=086) 4.9 K/ L 3.5-10.5 RED BLOOD CELL COUNT (BEAKER) (test lphz=800) 3.36 M/ L 4.63-6.08 HEMOGLOBIN (BEAKER) (test mhcx=640) 10.5 GM/DL 13.7-17.5 HEMATOCRIT (BEAKER) (test xidb=329) 30.5 % 40.1-51.0 MEAN CORPUSCULAR VOLUME (BEAKER) (test nxvl=832) 90.8 fL 79.0-92.2 MEAN CORPUSCULAR HEMOGLOBIN (BEAKER) (test 31.3 pg 25.7-32.2 jgch=759) MEAN CORPUSCULAR HEMOGLOBIN CONC (BEAKER) (test 34.4 GM/DL 32.3-36.5 yghd=598) RED CELL DISTRIBUTION WIDTH (BEAKER) (test 13.5 % 11.6-14.4 jgmv=808) PLATELET COUNT (BEAKER) (test pgun=903) 116 K/CU MM 150-450 MEAN PLATELET VOLUME (BEAKER) (test tgcp=723) 11.9 fL 9.4-12.4 NUCLEATED RED BLOOD CELLS (BEAKER) (test 0 /100 WBC 0-0 kzlh=637) NEUTROPHILS RELATIVE PERCENT (BEAKER) (test 52 % oswm=555) LYMPHOCYTES RELATIVE PERCENT (BEAKER) (test 36 % mibu=010) MONOCYTES RELATIVE PERCENT (BEAKER) (test 8 % zhwy=589) EOSINOPHILS RELATIVE PERCENT (BEAKER) (test 4 % llte=678) BASOPHILS RELATIVE PERCENT (BEAKER) (test 0 % ktyi=638) NEUTROPHILS ABSOLUTE COUNT (BEAKER) (test 2.51 K/ L 1.78-5.38 ngbv=820) LYMPHOCYTES ABSOLUTE COUNT (BEAKER) (test 1.74 K/ L 1.32-3.57 jpqo=184) MONOCYTES ABSOLUTE COUNT (BEAKER) (test 0.38 K/ L 0.30-0.82 erxb=324) EOSINOPHILS ABSOLUTE COUNT (BEAKER) (test 0.18 K/ L 0.04-0.54 ckjv=612) BASOPHILS ABSOLUTE COUNT (BEAKER) (test 0.02 K/ L 0.01-0.08 zuri=084) IMMATURE GRANULOCYTES-RELATIVE PERCENT (BEAKER) 1 % 0-1 (test ugrh=6473) POCT-GLUCOSE [id number] 22:08:00 Test Item Value Reference Range Comments POC-GLUCOSE METER (BEAKER) 364 mg/dL 70-110 Notified HAYLEE BOSS/TESTED AT [facility] (test taim=9277) [address] [facility] [address] POCT-GLUCOSE [id number] 17:05:00 Test Item Value Reference Range Comments POC-GLUCOSE METER (BEAKER) 389 mg/dL 70-110 Notified HAYLEE BOSS/TESTED AT [facility] (test nxjz=3049) [address] [facility] [address] BASIC METABOLIC [id number] 16:28:00 Test Item Value Reference Range Comments SODIUM (BEAKER) (test 136 meq/L 136-145 xnmw=997) POTASSIUM (BEAKER) (test 4.7 meq/L 3.5-5.1 yirk=616) CHLORIDE (BEAKER) (test 107 meq/L 98-107 bqnq=959) CO2 (BEAKER) (test 23 meq/L 22-29 fnji=050) BLOOD UREA NITROGEN 35 mg/dL 7-21 (BEAKER) (test hoip=907) CREATININE (BEAKER) (test 2.22 mg/dL 0.57-1.25 pndc=578) GLUCOSE RANDOM (BEAKER) 358 mg/dL 70-105 (test opes=342) CALCIUM (BEAKER) (test 8.7 mg/dL 8.4-10.2 qbfa=508) EGFR (BEAKER) (test 31 mL/min/1.73 sq m ESTIMATED GFR IS NOT opdw=1352) ACCURATE CREATININE CLEARANCE IN PREDICTING GLOMERULAR FILTRATION RATE. ESTIMATED GFR IS NOT APPLICABLE FOR DIALYSIS PATIENTS. [id number] 16:26:00 Test Item Value Reference Range Comments PROTIME (BEAKER) (test ptbd=364) 13.4 seconds 11.9-14.2 INR (BEAKER) (test iuas=730) 1.1 <=5.9 PARTIAL THROMBOPLASTIN TIME (BEAKER) (test 32.0 seconds 22.5-36.0 lbqg=793) Effective 09/23/2018: PT Reference Range ChangeNew: 11.9-14.2 Previous: 11.7- 14.7RECOMMENDED COUMADIN/WARFARIN INR THERAPY RANGESSTANDARD DOSE: 2.0-3.0 Includes: PROPHYLAXIS for venous thrombosis, systemic embolization; TREATMENT for venous thrombosis and/or pulmonary embolus.HIGH RISK: Target INR is2.5-3.5 for patients wiht mechanical heart valves.[id number] 16:26:00 Test Item Value Reference Range Comments PARTIAL THROMBOPLASTIN TIME (BEAKER) (test 32.0 seconds 22.5-36.0 kaym=855) POCT-GLUCOSE [id number] 12:06:00 Test Item Value Reference Range Comments POC-GLUCOSE METER (BEAKER) 321 mg/dL 70-110 Notified HAYLEE BOSS/TESTED AT [facility] (test blui=1386) [address] [facility] [address] POCT-GLUCOSE [id number] 08:29:00 Test Item Value Reference Range Comments POC-GLUCOSE METER (BEAKER) 263 mg/dL 70-110 TESTED AT [place] [address] [facility] (test zwww=5417) [facility] [address] [id number] 04:54:00 Test Item Value Reference Range Comments PARTIAL THROMBOPLASTIN TIME (BEAKER) (test 31.0 seconds 22.5-36.0 chrh=674) CBC W/PLT COUNT & AUTO [id number] 04:43:00 Test Item Value Reference Range Comments WHITE BLOOD CELL COUNT (BEAKER) (test ymzt=802) 6.6 K/ L 3.5-10.5 RED BLOOD CELL COUNT (BEAKER) (test aiut=039) 3.45 M/ L 4.63-6.08 HEMOGLOBIN (BEAKER) (test twgd=047) 10.9 GM/DL 13.7-17.5 HEMATOCRIT (BEAKER) (test rwyd=197) 30.8 % 40.1-51.0 MEAN CORPUSCULAR VOLUME (BEAKER) (test gcww=645) 89.3 fL 79.0-92.2 MEAN CORPUSCULAR HEMOGLOBIN (BEAKER) (test 31.6 pg 25.7-32.2 gzww=370) MEAN CORPUSCULAR HEMOGLOBIN CONC (BEAKER) (test 35.4 GM/DL 32.3-36.5 dmbm=863) RED CELL DISTRIBUTION WIDTH (BEAKER) (test 13.5 % 11.6-14.4 anba=023) PLATELET COUNT (BEAKER) (test rmbz=583) 138 K/CU MM 150-450 MEAN PLATELET VOLUME (BEAKER) (test rfci=476) 12.3 fL 9.4-12.4 NUCLEATED RED BLOOD CELLS (BEAKER) (test 0 /100 WBC 0-0 ulsk=427) NEUTROPHILS RELATIVE PERCENT (BEAKER) (test 64 % ambe=233) LYMPHOCYTES RELATIVE PERCENT (BEAKER) (test 24 % unxb=795) MONOCYTES RELATIVE PERCENT (BEAKER) (test 8 % ntls=843) EOSINOPHILS RELATIVE PERCENT (BEAKER) (test 3 % iuqf=488) BASOPHILS RELATIVE PERCENT (BEAKER) (test 1 % nfgs=929) NEUTROPHILS ABSOLUTE COUNT (BEAKER) (test 4.22 K/ L 1.78-5.38 djah=794) LYMPHOCYTES ABSOLUTE COUNT (BEAKER) (test 1.54 K/ L 1.32-3.57 eryb=807) MONOCYTES ABSOLUTE COUNT (BEAKER) (test 0.53 K/ L 0.30-0.82 hpyg=705) EOSINOPHILS ABSOLUTE COUNT (BEAKER) (test 0.20 K/ L 0.04-0.54 vtel=962) BASOPHILS ABSOLUTE COUNT (BEAKER) (test 0.03 K/ L 0.01-0.08 byin=619) IMMATURE GRANULOCYTES-RELATIVE PERCENT (BEAKER) 1 % 0-1 (test hhxv=1024) POCT-GLUCOSE [id number] 22:11:00 Test Item Value Reference Range Comments POC-GLUCOSE METER (BEAKER) 319 mg/dL 70-110 Notified HAYLEE BOSS/TESTED AT [facility] (test mrwb=1349) [address] [place] [address] [id number] 20:11:00 Test Item Value Reference Range Comments PARTIAL THROMBOPLASTIN TIME (BEAKER) (test 33.3 seconds 22.5-36.0 dlix=632) POCT-GLUCOSE [id number] 18:49:00 Test Item Value Reference Range Comments POC-GLUCOSE METER (BEAKER) 309 mg/dL 70-110 TESTED AT [address] (test pkku=8537) [place] [address] POCT-GLUCOSE [id number] 14:48:00 Test Item Value Reference Range Comments POC-GLUCOSE METER (BEAKER) 161 mg/dL 70-110 TESTED AT [address] (test yaci=2062) [place] [address] POCT-GLUCOSE [id number] 14:46:00 Test Item Value Reference Range Comments POC-GLUCOSE METER (BEAKER) 159 mg/dL 70-110 TESTED AT [address] (test tjxy=9382) [place] [address] TROPONIN [id number] 13:58:00 Test Item Value Reference Range Comments TROPONIN I (BEAKER) (test flrd=990) < ng/mL 0.00-0.03 Troponin I (TnI) levels [...] failure, acidosis, acute neurological disease, and persistent tachyarrhythmia.[id number] 12:25:00 Test Item Value Reference Range Comments PARTIAL THROMBOPLASTIN TIME (BEAKER) (test 30.3 seconds 22.5-36.0 fwpi=099) POCT-GLUCOSE [id number] 12:18:00 Test Item Value Reference Range Comments POC-GLUCOSE METER (BEAKER) 168 mg/dL 70-110 TESTED AT [address] (test ztfu=4291) [place] [address] POCT-GLUCOSE [id number] 11:06:00 Test Item Value Reference Range Comments POC-GLUCOSE METER (BEAKER) 180 mg/dL 70-110 TESTED AT [address] (test luwg=5355) [place] [address] POCT-GLUCOSE [id number] 10:21:00 Test Item Value Reference Range Comments POC-GLUCOSE METER (BEAKER) 195 mg/dL 70-110 TESTED AT [address] (test zozc=6094) [place] [address] POCT-GLUCOSE [id number] 10:21:00 Test Item Value Reference Range Comments POC-GLUCOSE METER (BEAKER) 180 mg/dL 70-110 TESTED AT [address] (test ipxz=0478) [facility] [address] POCT-GLUCOSE [id number] 08:06:00 Test Item Value Reference Range Comments POC-GLUCOSE METER (BEAKER) 218 mg/dL 70-110 TESTED AT [address] (test cynn=6202) [place] [id number] TROPONIN [id number] 07:00:00 Test Item Value Reference Range Comments TROPONIN I (BEAKER) (test byth=545) 0.01 ng/mL 0.00-0.03 Troponin I (TnI) levels [...] afterwardsOnce on admission and Daily AM afterwardsPOCT-GLUCOSE [id number] 06:58:00 Test Item Value Reference Range Comments POC-GLUCOSE METER (BEAKER) 248 mg/dL 70-[address] [facility] [address] [facility] (test nsxl=6498) [facility] [address] [id number] 06:54:00 Test Item Value Reference Range Comments PHOSPHORUS (BEAKER) (test pwbo=381) 2.5 mg/dL 2.3-4.7 Once on admission and Daily AM afterwardsOnce on admission and Daily AM afterwardsOnce on admission and Daily AM [id number] 06:54:00 Test Item Value Reference Range Comments MAGNESIUM (BEAKER) (test fygc=100) 2.2 mg/dL 1.6-2.6 Once on admission and Daily AM afterwardsOnce on admission and Daily AM afterwardsOnce on admission and Daily AM afterwardsBASIC METABOLIC [id number] 06:54:00 Test Item Value Reference Range Comments SODIUM (BEAKER) (test 137 meq/L 136-145 urzp=894) POTASSIUM (BEAKER) (test 4.4 meq/L 3.5-5.1 tbck=617) CHLORIDE (BEAKER) (test 111 meq/L 98-107 fgsw=545) CO2 (BEAKER) (test 22 meq/L 22-29 clxy=609) BLOOD UREA NITROGEN 37 mg/dL 7-21 (BEAKER) (test lcps=829) CREATININE (BEAKER) (test 1.93 mg/dL 0.57-1.25 ckxl=238) GLUCOSE RANDOM (BEAKER) 253 mg/dL 70-105 (test lnnp=488) CALCIUM (BEAKER) (test 8.1 mg/dL 8.4-10.2 vuat=613) EGFR (BEAKER) (test 37 mL/min/1.73 sq m ESTIMATED GFR IS NOT oazs=3994) ACCURATE CREATININE CLEARANCE IN PREDICTING GLOMERULAR FILTRATION RATE. ESTIMATED GFR IS NOT APPLICABLE FOR DIALYSIS PATIENTS. Once on admission and Daily AM afterwardsOnce on admission and Daily AM afterwardsOnce on admission and Daily AM afterwardsCBC W/PLT COUNT & AUTO [id number] 06:42:00 Test Item Value Reference Range Comments WHITE BLOOD CELL COUNT (BEAKER) (test qbmb=504) 4.8 K/ L 3.5-10.5 RED BLOOD CELL COUNT (BEAKER) (test rrpd=868) 3.50 M/ L 4.63-6.08 HEMOGLOBIN (BEAKER) (test hldj=548) 11.0 GM/DL 13.7-17.5 HEMATOCRIT (BEAKER) (test jqop=758) 31.7 % 40.1-51.0 MEAN CORPUSCULAR VOLUME (BEAKER) (test ajxo=228) 90.6 fL 79.0-92.2 MEAN CORPUSCULAR HEMOGLOBIN (BEAKER) (test 31.4 pg 25.7-32.2 jxtn=112) MEAN CORPUSCULAR HEMOGLOBIN CONC (BEAKER) (test 34.7 GM/DL 32.3-36.5 bvnf=579) RED CELL DISTRIBUTION WIDTH (BEAKER) (test 13.5 % 11.6-14.4 gfnx=318) PLATELET COUNT (BEAKER) (test syzl=476) 118 K/CU MM 150-450 MEAN PLATELET VOLUME (BEAKER) (test txii=198) 12.1 fL 9.4-12.4 NUCLEATED RED BLOOD CELLS (BEAKER) (test 0 /100 WBC 0-0 dlsa=785) NEUTROPHILS RELATIVE PERCENT (BEAKER) (test 42 % gjaw=719) LYMPHOCYTES RELATIVE PERCENT (BEAKER) (test 46 % eric=295) MONOCYTES RELATIVE PERCENT (BEAKER) (test 7 % sbad=557) EOSINOPHILS RELATIVE PERCENT (BEAKER) (test 4 % yzar=218) BASOPHILS RELATIVE PERCENT (BEAKER) (test 1 % plqa=433) NEUTROPHILS ABSOLUTE COUNT (BEAKER) (test 2.00 K/ L 1.78-5.38 fivi=929) LYMPHOCYTES ABSOLUTE COUNT (BEAKER) (test 2.22 K/ L 1.32-3.57 ujbt=806) MONOCYTES ABSOLUTE COUNT (BEAKER) (test 0.34 K/ L 0.30-0.82 eagi=127) EOSINOPHILS ABSOLUTE COUNT (BEAKER) (test 0.20 K/ L 0.04-0.54 aigl=300) BASOPHILS ABSOLUTE COUNT (BEAKER) (test 0.04 K/ L 0.01-0.08 nsrv=766) IMMATURE GRANULOCYTES-RELATIVE PERCENT (BEAKER) 1 % 0-1 (test vfxy=2407) [id number] 06:28:00 Test Item Value Reference Range Comments PARTIAL THROMBOPLASTIN TIME (BEAKER) (test 30.6 seconds 22.5-36.0 dlxv=384) POCT-GLUCOSE [id number] 06:01:00 Test Item Value Reference Range Comments POC-GLUCOSE METER (BEAKER) 266 mg/dL 70-110 TESTED AT [address] (test ilge=2195) [place] [id number] POCT-GLUCOSE [id number] 04:57:00 Test Item Value Reference Range Comments POC-GLUCOSE METER (BEAKER) 271 mg/dL 70-110 TESTED AT [address] (test zkdg=0823) [facility] [address] POCT-GLUCOSE [id number] 04:05:00 Test Item Value Reference Range Comments POC-GLUCOSE METER (BEAKER) 308 mg/dL 70-110 Notified HAYLEE BOSS/TESTED AT [facility] (test ieow=0132) [address] [place] [address] POCT-GLUCOSE [id number] 02:57:00 Test Item Value Reference Range Comments POC-GLUCOSE METER (BEAKER) 343 mg/dL 70-110 Notified HAYLEE BOSS/TESTED AT [facility] (test mshg=6579) [address] [place] [address] RAD, CHEST, 1 VIEW, NON [id number] 02:27:00Reason for exam:->mediastinal wideningShould this be performed [...] Wilmer Kline Verified Date/Time: 01/07/2019 02:27:45 POCT-GLUCOSE [id number] 01:57:00 Test Item Value Reference Range Comments POC-GLUCOSE METER (BEAKER) 369 mg/dL 70-110 TESTED AT [address] (test kdyg=2775) [place] [id number] POCT-GLUCOSE [id number] 01:06:00 Test Item Value Reference Range Comments POC-GLUCOSE METER (BEAKER) 395 mg/dL 70-110 Notified HAYLEE BOSS/TESTED AT [facility] (test yaxq=0533) [address] [place] [address] TROPONIN [id number] 00:36:00 Test Item Value Reference Range Comments TROPONIN I (BEAKER) (test fihq=683) 0.01 ng/mL 0.00-0.03 Troponin I (TnI) levels [...] NATRIURETIC PEPTIDE (BEAKER) (test 151 pg/mL 0-100 hapy=358) [id number] 00:19:00 Test Item Value Reference Range Comments PARTIAL THROMBOPLASTIN TIME (BEAKER) (test 28.2 seconds 22.5-36.0 qyyv=820) Prior to initiating heparinPOCT-GLUCOSE [id number] 00:16:00 Test Item Value Reference Range Comments POC-GLUCOSE METER (BEAKER) 413 mg/dL 70-110 TESTED AT [address] (test njve=7969) [place] [id number] POCT-GLUCOSE [id number] 23:10:00 Test Item Value Reference Range Comments POC-GLUCOSE METER (BEAKER) 452 mg/dL 70-110 Notified HAYLEE BOSS/TESTED AT [facility] (test wpnn=6843) [address] [facility] [address] POCT-GLUCOSE [id number] 22:06:00 Test Item Value Reference Range Comments POC-GLUCOSE METER (BEAKER) 383 mg/dL 70-[address] [facility] [address] (test xvml=8688) [facility] [address] CT, BRAIN, WITHOUT [id number] 21:38:00FINAL REPORT CT Head without contrast CLINICAL [...] by: WILMER KLINE MD on 02/2019 09:38 [facility] [id number] 21:12:00 Test Item Value Reference Range Comments SODIUM (BEAKER) (test 134 meq/L 136-145 vmsc=734) POTASSIUM (BEAKER) (test 4.9 meq/L 3.5-5.1 Specimen slightly jmiv=491) hemolyzed CHLORIDE (BEAKER) (test 107 meq/L 98-107 nmgx=908) CO2 (BEAKER) (test 19 meq/L 22-29 zqax=334) BLOOD UREA NITROGEN 36 mg/dL 7-21 (BEAKER) (test hgyz=318) CREATININE (BEAKER) (test 1.95 mg/dL 0.57-1.25 Specimen slightly rzig=118) hemolyzed GLUCOSE RANDOM (BEAKER) 311 mg/dL 70-105 (test jfga=065) CALCIUM (BEAKER) (test 8.5 mg/dL 8.4-10.2 eixw=056) EGFR (BEAKER) (test 36 mL/min/1.73 sq m ESTIMATED GFR IS NOT hspa=0460) ACCURATE CREATININE CLEARANCE IN PREDICTING GLOMERULAR FILTRATION RATE. ESTIMATED GFR IS NOT APPLICABLE FOR DIALYSIS PATIENTS. HEMOGLOBIN [id number] 20:17:00 Test Item Value Reference Range Comments HEMOGLOBIN A1C (BEAKER) (test pibr=169) 11.9 % 4.3-6.1 TROPONIN [id number] 19:52:00 Test Item Value Reference Range Comments TROPONIN I (BEAKER) (test qdlz=097) < ng/mL 0.00-0.03 Troponin I (TnI) levels [...] acute neurological disease, and persistent tachyarrhythmia.HEPATIC FUNCTION [id number] 19:46: 00 Test Item Value Reference Range Comments TOTAL PROTEIN (BEAKER) (test 6.3 gm/dL 6.0-8.3 Specimen slightly hemolyzed xjom=611) ALBUMIN (BEAKER) (test 2.8 g/dL 3.5-5.0 Specimen slightly hemolyzed pzjz=4987) BILIRUBIN TOTAL (BEAKER) (test 0.4 mg/dL 0.2-1.2 Specimen slightly hemolyzed tgim=256) BILIRUBIN DIRECT (BEAKER) (test 0.1 mg/dL 0.1-0.5 Specimen slightly hemolyzed lgwo=329) ALKALINE PHOSPHATASE (BEAKER) 104 U/L 40-150 (test jqlt=541) AST (SGOT) (BEAKER) (test 29 U/L 5-34 Specimen slightly hemolyzed umnd=464) ALT (SGPT) (BEAKER) (test 23 U/L 6-55 Specimen slightly hemolyzed iqno=241) Specimen moderately [id number] 19:32:00 Test Item Value Reference Range Comments PARTIAL THROMBOPLASTIN TIME (BEAKER) (test 28.1 seconds 22.5-36.0 bara=452) PROTHROMBIN TIME/[id number] 19:31:00 Test Item Value Reference Range Comments PROTIME (BEAKER) (test qlnl=431) 11.4 seconds 11.9-14.2 INR (BEAKER) (test apdw=387) 0.9 <=5.9 Effective 09/23/2018: PT Reference Range ChangeNew: 11.9-14.2 Previous: 11.7- 14.7RECOMMENDED COUMADIN/WARFARIN INR THERAPY RANGESSTANDARD DOSE: 2.0-3.0 Includes: PROPHYLAXIS for venous thrombosis, systemic embolization; TREATMENT for venous thrombosis and/or pulmonary embolus.HIGH RISK: Target INR is2.5-3.5 for patients wiht mechanical heart valves.CBC W/PLT COUNT & AUTO [id number] 19:25:00 Test Item Value Reference Range Comments WHITE BLOOD CELL COUNT (BEAKER) (test hdbp=540) 5.2 K/ L 3.5-10.5 RED BLOOD CELL COUNT (BEAKER) (test wvgs=410) 3.84 M/ L 4.63-6.08 HEMOGLOBIN (BEAKER) (test dibd=722) 12.2 GM/DL 13.7-17.5 HEMATOCRIT (BEAKER) (test rvnn=282) 34.6 % 40.1-51.0 MEAN CORPUSCULAR VOLUME (BEAKER) (test wetb=025) 90.1 fL 79.0-92.2 MEAN CORPUSCULAR HEMOGLOBIN (BEAKER) (test 31.8 pg 25.7-32.2 llua=692) MEAN CORPUSCULAR HEMOGLOBIN CONC (BEAKER) (test 35.3 GM/DL 32.3-36.5 myba=985) RED CELL DISTRIBUTION WIDTH (BEAKER) (test 13.6 % 11.6-14.4 xfoj=405) PLATELET COUNT (BEAKER) (test xhno=898) 140 K/CU MM 150-450 MEAN PLATELET VOLUME (BEAKER) (test vwzm=402) 11.8 fL 9.4-12.4 NUCLEATED RED BLOOD CELLS (BEAKER) (test 0 /100 WBC 0-0 eryr=021) NEUTROPHILS RELATIVE PERCENT (BEAKER) (test 54 % arbc=796) LYMPHOCYTES RELATIVE PERCENT (BEAKER) (test 36 % caqu=964) MONOCYTES RELATIVE PERCENT (BEAKER) (test 5 % jszj=802) EOSINOPHILS RELATIVE PERCENT (BEAKER) (test 3 % ettz=057) BASOPHILS RELATIVE PERCENT (BEAKER) (test 1 % raej=058) NEUTROPHILS ABSOLUTE COUNT (BEAKER) (test 2.82 K/ L 1.78-5.38 cxot=369) LYMPHOCYTES ABSOLUTE COUNT (BEAKER) (test 1.89 K/ L 1.32-3.57 avlb=555) MONOCYTES ABSOLUTE COUNT (BEAKER) (test 0.28 K/ L 0.30-0.82 gzye=583) EOSINOPHILS ABSOLUTE COUNT (BEAKER) (test 0.17 K/ L 0.04-0.54 glnh=109) BASOPHILS ABSOLUTE COUNT (BEAKER) (test 0.04 K/ L 0.01-0.08 utcx=674) IMMATURE GRANULOCYTES-RELATIVE PERCENT (BEAKER) 1 % 0-1 (test cimn=1288) POCT-GLUCOSE [id number] 17:51:00 Test Item Value Reference Range Comments POC-GLUCOSE METER (BEAKER) 342 mg/dL 70-110 Notified HAYLEE BOSS/TESTED AT [facility] (test bhsr=8238) [id number] [facility] [id number]
[2019-05-13] MEDS ORDERED: ONDANSETRON 4 MG/2 ML VIAL ONE (21:18)
[2019-05-13 21:19] LABS: Protime INR 0.9
[2019-05-13 21:32] LABS: Absolute Lymphocytes (CBC) 1.4 K/uL (0.7-4.9); Basophils % 1.3 % (0-1.3); Hematocrit 44.2 % (39.6-49.0); Lymphocytes % 24.3 % (15.3-44.8); MPV 10.7 fL (7.6-11.3); RBC Red Blood Cell Count 5.02 M/uL (4.33-5.43)
[2019-05-13 21:39] LABS: ALT/SGPT 27 U/L (12-78); AST/SGOT 18 U/L (15-37); Albumin 2.7 g/dL (3.4-5.0); Alkaline Phosphatase 169 U/L (45-117); BUN Blood Urea Nitrogen 27 mg/dL (7-18); Bicarbonate 26 mmol/L (21-32); Bilirubin Direct < 0.1 mg/dL (0-0.2); Bilirubin Total 0.4 mg/dL (0.2-1.0); Magnesium 2.2 mg/dL (1.8-2.4); NT PRO-BNP 414 pg/mL (<125); Potassium 3.8 mmol/L (3.5-5.1); Protein, Total 7.2 g/dL (6.4-8.2); Sodium Level 134 mmol/L (136-145); Troponin (Emerg Dept Use Only) < 0.02 ng/mL (0.0-0.045)
[2019-05-13 21:43] LABS: Glucose Level 450 mg/dL (74-106)
[2019-05-13] MEDS ORDERED: MAGNE/ALUM HYDROXD 30 ML UCUP ONE (21:59)
[2019-05-13] MEDS ORDERED: LIDOCAINE VISCOUS 2% SOLN 15 ML UDC ONE (21:59)
[2019-05-13] MEDS ORDERED: INSULIN -REGULAR HUMAN 50 UNIT/0.5 ML ML ONE (22:53)
--- NOTE | 2019-05-13 23:24 | ER ---
Nurse's Notes [facility] Name: Wero Kwong Sr Age: 53 yrs Sex: Male : 1965 Arrival Date: 05/13/2019 Time: 20:16 Bed 27 Private MD: Diagnosis: Nausea and vomiting Presentation: 05/13 20:21 Presenting complaint: Patient states: "Leg swelling on both legs and pain. N/V x 1 ca1 month. Last month, I was here and they gave me medications of N/V but it does not help anymore. I can't keep anything down anymore. My anxiety has just gotten worse too from all these symptoms". Reports hx of CHF, Liver cirrhosis and Kidney Failure. Transition of care: patient was not received from another setting of care. Onset of symptoms was May 13, 2019. Risk Assessment: Do you want to hurt yourself or someone else? Patient reports no desire to harm self or others. Initial Sepsis Screen: Does the patient meet any 2 criteria? No. Patient's initial sepsis screen is negative. Does the patient have a suspected source of infection? No. Patient's initial sepsis screen is negative. Care prior to arrival: None. 20:21 Method Of Arrival: Wheelchair ca1 20:21 Acuity: MARIA [place] ROS[place] 3 ca1 Triage Assessment: 20:28 General: Appears in no apparent distress. Behavior is calm, cooperative. ls4 20:28 Neuro: No deficits noted. Cardiovascular: Capillary refill < 3 seconds Patient's skin ls4 is warm and dry. Edema is 2+ to left ankle, left foot, left toes, right ankle, right foot and right toes pitting to left ankle, left foot, right ankle and right foot. GI: Abdomen is round Bowel sounds present X 4 quads. Reports nausea. Derm: Skin is pink, warm \\T\\ dry. Musculoskeletal: No deficits noted. Historical: - Allergies: 20:27 Codeine; ca1 20:27 Hydrocodone-Acetaminophen; ca1 20:27 Morphine; ca1 - PMHx: 20:27 CAD; CVA; Diabetes - IDDM; High Cholesterol; Hypertension; Myocardial infarction; ca1 neuropathy; Seizures; CHF; Kidney Failure; Cirrhosis; - PSHx: 20:27 cardiac stents; Cholecystectomy; ca1 - Immunization history:: Adult Immunizations up to date, Flu vaccine is not up to date. - Social history:: Smoking status: Patient uses tobacco products, denies chronic smoking, but will smoke occasionally. - Ebola Screening: : Patient negative for fever greater than or equal to 101.5 degrees Fahrenheit, and additional compatible Ebola Virus Disease symptoms Patient denies exposure to infectious person Patient denies travel to an Ebola-affected area in the 21 days before illness onset No symptoms or risks identified at this time. Screenin:00 Abuse screen: Denies threats or abuse. Nutritional screening: No deficits noted. ls4 Tuberculosis screening: No symptoms or risk factors identified. Fall Risk Total Morales Fall Scale indicates. Assessment: 21:30 Reassessment: Patient appears in no apparent distress at this time. Patient and/or ls4 family updated on plan of care and expected duration. Pain level reassessed. Patient is alert, oriented x 3, equal unlabored respirations, skin warm/dry/pink. 21:51 Pain: Complains of pain in epigastric area Pain currently is 8 out of 10 on a pain ls4 scale. Respiratory: Reports shortness of breath on exertion Airway is patent Respiratory effort is even, unlabored, Respiratory pattern is regular, Breath sounds are diminished bilaterally. the patient has mild shortness of breath Denies labored breathing, air hunger. GI: Abdomen is round Bowel sounds present X 4 quads. Reports bloating, epigastric pain, nausea. Musculoskeletal: No deficits noted. 22:30 Reassessment: Patient appears in no apparent distress at this time. Patient and/or ls4 family updated on plan of care and expected duration. Pain level reassessed. Patient is alert, oriented x 3, equal unlabored respirations, skin warm/dry/pink. 22:30 General: Appears in no apparent distress. comfortable, Behavior is calm, cooperative. ls4 Neuro: No deficits noted. Cardiovascular: No deficits noted. Respiratory: No deficits noted. Vital Signs: 20:27 BP 162 / 99; Pulse 81; Resp 19 S; Temp 97.6(O); Pulse Ox 96% on R/A; Weight 97.52 kg ca1 (R); Height 5 ft. 7 in. (170.18 cm); Pain 9/10; 22:56 BP 149 / 94; Pulse 78; Resp 16; Temp 98.0; Pulse Ox 98% on R/A; Pain 3/10; ls4 20:27 Body Mass Index 33.67 (97.52 kg, 170.18 cm) ca1 ED Course: 20:16 Patient arrived in ED. ds1 20:26 Triage completed. ca1 20:27 Arm band placed on right wrist. ca1 20:30 Milton Mccoy MD is Attending Physician. tw4 20:30 Patient has correct armband on for positive identification. Fall risk band placed. ls4 Placed in gown. Bed in low position. Call light in reach. Side rails up X2. Adult w/ patient. Notified ED physician of a critical lab result(s). glucose [address] DR MCCOY. 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 Pulse ox on. NIBP on. ls4 20:43 Olga Ramirez, RN is Primary Nurse. ls4 20:52 XRAY Chest (1 view) In Process Unspecified. EDMS 21:00 No provider procedures requiring assistance completed. Inserted saline lock: 20 gauge ls4 in right antecubital area, using aseptic technique. 21:08 Basic Metabolic Panel Sent. ls4 23:34 IV discontinued, intact, bleeding controlled, No redness/swelling at site. Pressure ls4 dressing applied. Administered Medications: 21:16 Drug: Zofran 4 mg Route: IVP; Site: right antecubital; ls4 21:37 Follow up: Response: No adverse reaction ls4 21:59 Drug: GI Cocktail without - (Maalox Suspension 30 ml, Lidocaine Liquid 2 % 15 ls4 ml) Route: PO; 22:55 Follow up: Response: No adverse reaction; Pain is decreased ls4 22:46 Drug: Insulin Regular Human 10 units {Co-Signature: ls4 (Olga Ramirez RN).} {Note: fc given per Olga Elkins RN.} Route: IVP; Site: right antecubital; 23:33 Follow up: Response: No adverse reaction ls4 Outcome: 23:23 Discharge ordered by . tw4 23:34 Discharged to home via wheelchair, with family. ls4 23:34 Condition: stable 23:34 Discharge instructions given to patient, family, Instructed on discharge instructions, follow up and referral plans. Demonstrated understanding of instructions, follow-up care, medications, Prescriptions given X 1. 23:34 Patient left the ED. ls4 Signatures: Dispatcher [employer] EDOH Kyra Felipe RN RN Ganti ds1 Milton Mccoy MD MD tw4 Olga Ramirez RN RN ls4 Abigail Laguna RN RN ca1 Olga Ramirez RN ls4
--- NOTE | 2019-05-13 23:24 | EDPHYS ---
Physician Documentation [facility] Name: Wero Kwong Sr Age: 53 yrs Sex: Male : 1965 Arrival Date: 05/13/2019 Time: 20:16 Bed 27 Private MD: ED Physician Milton Mims HPI: 05/14 00:58 This 53 yrs old Male presents to ER via Wheelchair with complaints of tw4 Nausea/Vomiting, High Blood Pressure. 00:58 The patient presents to the emergency department with nausea, vomiting. Onset: The tw4 symptoms/episode began/occurred today. Possible causes: unknown. The symptoms are aggravated by nothing. The symptoms are alleviated by nothing. Associated signs and symptoms: The patient has no apparent associated signs or symptoms. Severity of symptoms: At their worst the symptoms were moderate in the emergency department the symptoms are unchanged. The patient has not experienced similar symptoms in the past. Historical: - Allergies: 05/13 20:27 Codeine; ca1 20:27 Hydrocodone-Acetaminophen; ca1 20:27 Morphine; ca1 - PMHx: 20:27 CAD; CVA; Diabetes - IDDM; High Cholesterol; Hypertension; Myocardial infarction; ca1 neuropathy; Seizures; CHF; Kidney Failure; Cirrhosis; - PSHx: 20:27 cardiac stents; Cholecystectomy; ca1 - Immunization history:: Adult Immunizations up to date, Flu vaccine is not up to date. - Social history:: Smoking status: Patient uses tobacco products, denies chronic smoking, but will smoke occasionally. - Ebola Screening: : Patient negative for fever greater than or equal to 101.5 degrees Fahrenheit, and additional compatible Ebola Virus Disease symptoms Patient denies exposure to infectious person Patient denies travel to an Ebola-affected area in the 21 days before illness onset No symptoms or risks identified at this time. ROS: 05/14 00:58 Constitutional: Negative for fever, chills, and weight loss, Eyes: Negative for injury, tw4 pain, redness, and discharge, Neck: Negative for injury, pain, and swelling, Cardiovascular: Negative for chest pain, palpitations, and edema, Respiratory: Negative for shortness of breath, cough, wheezing, and pleuritic chest pain, Back: Negative for injury and pain, MS/Extremity: Negative for injury and deformity, Skin: Negative for injury, rash, and discoloration, Neuro: Negative for headache, weakness, numbness, tingling, and seizure. Abdomen/GI: Positive for nausea and vomiting, nausea, vomiting, and diarrhea, nausea, vomiting, Negative for abdominal pain, diarrhea, constipation, abdominal cramps, abdominal distension, anorexia, dysphagia, hematemesis, black/tarry stool, rectal pain, rectal bleeding, bowel incontinence. Exam: 00:58 Constitutional: This is a well developed, well nourished patient who is awake, alert, tw4 and in no acute distress. Head/Face: Normocephalic, atraumatic. Chest/axilla: Normal chest wall appearance and motion. Nontender with no deformity. No lesions are appreciated. Cardiovascular: Regular rate and rhythm with a normal S1 and S2. No gallops, murmurs, or rubs. Normal PMI, no JVD. No pulse deficits. Respiratory: Lungs have equal breath sounds bilaterally, clear to auscultation and percussion. No rales, rhonchi or wheezes noted. No increased work of breathing, no retractions or nasal flaring. 00:58 Back: No spinal tenderness. No costovertebral tenderness. Full range of motion. MS/ Extremity: Pulses equal, no cyanosis. Neurovascular intact. Full, normal range of motion. Neuro: Awake and alert, GCS 15, oriented to person, place, time, and situation. Cranial nerves II-XII grossly intact. Motor strength 5/5 in all extremities. Sensory grossly intact. Cerebellar exam normal. Normal gait. 00:58 Abdomen/GI: Inspection: abdomen appears normal, Bowel sounds: normal, Palpation: abdomen is soft and non-tender. Vital Signs: 05/13 20:27 BP 162 / 99; Pulse 81; Resp 19 S; Temp 97.6(O); Pulse Ox 96% on R/A; Weight 97.52 kg ca1 (R); Height 5 ft. 7 in. (170.18 cm); Pain 9/10; 22:56 BP 149 / 94; Pulse 78; Resp 16; Temp 98.0; Pulse Ox 98% on R/A; Pain 3/10; ls4 20:27 Body Mass Index 33.67 (97.52 kg, 170.18 cm) ca1 MDM: 20:31 Patient medically screened. tw4 05/14 01:03 Differential diagnosis: Nonspecific abd pain, gastritis, cholecystitis, pancreatitis, tw4 appendicitis. Data reviewed: vital signs, nurses notes. Data interpreted: Pulse oximetry: Interpretation: normal. Counseling: I had a detailed discussion with the patient and/or guardian regarding: the historical points, exam findings, and any diagnostic results supporting the discharge/admit diagnosis. Medication response: Response to treatment: the patient's symptoms have markedly improved after treatment. Special discussion: Based on the patient's Hx, exam, and Dx evaluation, there is no indication for emergent surgery or inpatient Tx. It is understood by the patient/guardian that if the Sx's persist or worsen they need to return immediately for re-evaluation. Based on the patient's history, exam and DX evaluation, there is no indication for emergent intervention or inpatient TX. It is understood by the patient/guardian that if the SXs persist or worsen they need to return immediately for re-evaluation. 05/13 20:37 Order name: Basic Metabolic Panel 05/13 20:37 Order name: CBC with Diff 05/13 20:37 Order name: LFT's; Complete Time: 22:37 05/13 22:37 Interpretation: Normal except: A/G 0.6; ALB 2.7; GLOB 4.5; ALK 169. 05/13 20:37 Order name: Magnesium; Complete Time: 22:37 05/13 22:37 Interpretation: Normal except: MG 2.2. 05/13 20:37 Order name: NT PRO-BNP; Complete Time: 22:37 [facility] 05/13 22:37 Interpretation: Normal except: NT PRO-BNP 414. 05/13 20:37 Order name: PT-INR; Complete Time: 22:37 05/13 22:37 Interpretation: Within normal limits: PT 10.7. 05/13 20:37 Order name: Troponin (emerg Dept Use Only); Complete Time: 22:37 05/13 22:37 Interpretation: Within normal limits: TROPED < 0.02. 05/13 20:37 Order name: XRAY Chest (1 view) 05/13 20:37 Order name: EKG; Complete Time: 20:38 05/13 20:38 Order name: Basic Metabolic Panel; Complete Time: 22:37 EDMS 05/13 22:37 Interpretation: Normal except: NA 134; BUN 27; CRE 1.89; GFR 38. tw4 05/13 20:38 Order name: CBC with Automated Diff; Complete Time: 22:37 EDMS 05/13 20:37 Order name: Cardiac monitoring; Complete Time: 21:08 tw4 05/13 20:37 Order name: EKG - Nurse/Tech; Complete Time: 21:08 tw4 05/13 20:37 Order name: IV Saline Lock; Complete Time: 21:07 tw4 05/13 20:37 Order name: Labs collected and sent; Complete Time: 21:07 tw4 05/13 20:37 Order name: O2 Per Protocol; Complete Time: 21:07 tw4 05/13 20:37 Order name: O2 Sat Monitoring; Complete Time: 22:15 tw4 EC:58 Rhythm is regular with Right bundle branch block. QRS [place] is Normal. NC interval is tw4 normal. QRS interval is normal. QT interval is normal. No Q waves. T waves are Normal. No ST changes noted. Clinical impression: NSR w/ Non-specific ST/T Changes. Interpreted by me. Reviewed by me. Administered Medications: 05/13 21:16 Drug: Zofran 4 mg Route: IVP; Site: right antecubital; ls4 21:37 Follow up: Response: No adverse reaction ls4 21:59 Drug: GI Cocktail without - (Maalox Suspension 30 ml, Lidocaine Liquid 2 % 15 ls4 ml) Route: PO; 22:55 Follow up: Response: No adverse reaction; Pain is decreased ls4 22:46 Drug: Insulin Regular Human 10 units {Co-Signature: ls4 (Olga Ramirez RN).} {Note: fc given per Olga Elkins RN.} Route: IVP; Site: right antecubital; 23:33 Follow up: Response: No adverse reaction ls4 Disposition: 05/13/19 23:23 Discharged to Home. Impression: Nausea and vomiting. - Condition is Stable. - Discharge Instructions: Nausea and Vomiting, Adult, [id number]. - Prescriptions for Zofran 4 mg Oral Tablet - take 1 tablet by ORAL route every 12 hours As needed; 20 tablet. - Medication Reconciliation Form, Thank You Letter, Antibiotic Education, Prescription Opioid Use form. - Follow up: Private Physician; When: Upon discharge from the Emergency Department; Reason: Recheck today's complaints, Continuance of care. - Problem is new. - Symptoms have improved. Signatures: Dispatcher [employer] Kyra Morris RN RN Milton Reveles MD MD tw4 Olga Ramirez RN RN ls4 Abigail Laguna RN RN ca1 Olga Ramirez RN ls4 Corrections: (The following items were deleted from the chart) 23:34 23:23 05/13/2019 23:23 Discharged to Home. Impression: Nausea and vomiting. Condition ls4 is Stable. Forms are Medication Reconciliation Form, Thank You Letter, Antibiotic Education, Prescription Opioid Use. Follow up: Private Physician; When: Upon discharge from the Emergency Department; Reason: Recheck today's complaints, Continuance of care. Problem is new. Symptoms have improved. tw4
[2019-05-13 23:46] VITALS: BP 149/94; TEMP 98; O2SAT 98
--- NOTE | 2019-05-14 08:08 | EKG ---
Test Date: 2019-05-13 Test Time: 21:24:02 Director Of Industrial Relations: MEASUREMENT RESULTS: Intervals: Rate: 80 MT: 130 QRSD: 146 QT: 430 QTc: 495 [place]: P: 27 MT: 130 QRS: 119 T: -12 INTERPRETIVE STATEMENTS: Normal sinus rhythm Right bundle branch block Left posterior fascicular block Bifascicular block Cannot rule out Inferior infarct, age undetermined Abnormal ECG Compared to ECG 04/03/2019 05:47:17 Left posterior fascicular block now present Bifascicular block now present Myocardial infarct finding still present Electronically Signed On 05-14-19 08:07:21 FILLING TECHNICIAN by Zion Colon
--- NOTE | 2019-05-14 08:13 | RAD REPORT ---
EXAM DESCRIPTION: Noah Single View05/13/2019 8:53 pm CLINICAL HISTORY: Shortness of breath COMPARISON: March 2019 FINDINGS: The lungs appear clear of acute infiltrate. The heart is normal size IMPRESSION: No acute abnormalities displayed
== END 2019-05-13 23:34 | disposition home or self-care (01) ==
LOC: ER 20:11
DX: R11.2 Nausea with vomiting, unspecified (principal); Z88.6 Allergy status to analgesic agent; Z72.0 Tobacco use
CPT/HCPCS: 93005; 85025; 80048; 36415; 83735; 85610; 80076; 84484; 83880; 71045; 96375; 96374; 99284; J2405

== ENCOUNTER 2019-05-17 22:45 | Observation (INO) | payer BC ==
--- OUTSIDE RECORDS SUMMARY | 2019-05-17 22:48 | XMS REPORT ---
:1965 [facility] Organization [facility] Address [address] [place] [address] Care Team Providers Name Role Phone BASHIR [...] (BEAKER) (test 119 mg/dL 70-110 TESTED AT [facility] [address] [place] [address] xqqn=[phone]) [facility] [address] BASIC METABOLIC [id number] 06:16:00 Test Item Value Reference Range Comments SODIUM (BEAKER) (test 139 meq/L 136-145 hhpz=400) POTASSIUM (BEAKER) (test 4.5 meq/L 3.5-5.1 ywfu=183) CHLORIDE (BEAKER) (test 109 meq/L 98-107 zqzh=444) CO2 (BEAKER) (test 23 meq/L 22-29 fnro=374) BLOOD UREA NITROGEN 30 mg/dL 7-21 (BEAKER) (test zbau=391) CREATININE (BEAKER) (test 1.87 mg/dL 0.57-1.25 jauy=254) GLUCOSE RANDOM (BEAKER) 219 mg/dL 70-105 (test yamv=212) CALCIUM (BEAKER) (test 8.9 mg/dL 8.4-10.2 tuki=273) EGFR (BEAKER) (test 38 mL/min/1.73 sq m ESTIMATED GFR IS NOT owac=1167) ACCURATE CREATININE CLEARANCE IN PREDICTING GLOMERULAR FILTRATION RATE. ESTIMATED GFR IS NOT APPLICABLE FOR DIALYSIS PATIENTS. CBC W/PLT COUNT & AUTO [id number] 05:42:00 Test Item Value Reference Range Comments WHITE BLOOD CELL COUNT (BEAKER) (test soqg=520) 4.1 K/ L 3.5-10.5 RED BLOOD CELL COUNT (BEAKER) (test shhz=827) 3.72 M/ L 4.63-6.08 HEMOGLOBIN (BEAKER) (test xasp=413) 11.6 GM/DL 13.7-17.5 HEMATOCRIT (BEAKER) (test lntc=775) 33.6 % 40.1-51.0 MEAN CORPUSCULAR VOLUME (BEAKER) (test xpvf=078) 90.3 fL 79.0-92.2 MEAN CORPUSCULAR HEMOGLOBIN (BEAKER) (test 31.2 pg 25.7-32.2 blvt=314) MEAN CORPUSCULAR HEMOGLOBIN CONC (BEAKER) (test 34.5 GM/DL 32.3-36.5 idbf=909) RED CELL DISTRIBUTION WIDTH (BEAKER) (test 13.7 % 11.6-14.4 hatl=115) PLATELET COUNT (BEAKER) (test oigq=691) 170 K/CU MM 150-450 MEAN PLATELET VOLUME (BEAKER) (test jlko=537) 11.8 fL 9.4-12.4 NUCLEATED RED BLOOD CELLS (BEAKER) (test 0 /100 WBC 0-0 ogfm=459) NEUTROPHILS RELATIVE PERCENT (BEAKER) (test 53 % lbgs=011) LYMPHOCYTES RELATIVE PERCENT (BEAKER) (test 32 % brxa=899) MONOCYTES RELATIVE PERCENT (BEAKER) (test 7 % ukxc=427) EOSINOPHILS RELATIVE PERCENT (BEAKER) (test 6 % tyac=614) BASOPHILS RELATIVE PERCENT (BEAKER) (test 1 % twvo=533) NEUTROPHILS ABSOLUTE COUNT (BEAKER) (test 2.17 K/ L 1.78-5.38 kake=131) LYMPHOCYTES ABSOLUTE COUNT (BEAKER) (test 1.31 K/ L 1.32-3.57 gnrq=037) MONOCYTES ABSOLUTE COUNT (BEAKER) (test 0.29 K/ L 0.30-0.82 cajz=799) EOSINOPHILS ABSOLUTE COUNT (BEAKER) (test 0.26 K/ L 0.04-0.54 mxyp=942) BASOPHILS ABSOLUTE COUNT (BEAKER) (test 0.03 K/ L 0.01-0.08 hbic=448) IMMATURE GRANULOCYTES-RELATIVE PERCENT (BEAKER) 1 % 0-1 (test hzso=8979) POCT-GLUCOSE [id number] 20:34:00 Test Item Value Reference Range Comments POC-GLUCOSE METER (BEAKER) 205 mg/dL 70-110 TESTED AT [address] (test laah=9018) [facility] [address] [address], CHEST, WITHOUT [id number] 18:24:00FINAL REPORT TECHNIQUE: CT scan of the [...] [place] Verified Date/Time: 01/10/2019 18:24:57 Reading Location: [facility] C013Y CT Body Reading Room POCT-GLUCOSE [id number] 17:31 :00 Test Item Value Reference Range Comments POC-GLUCOSE METER (BEAKER) 183 mg/dL 70-110 TESTED AT [address] (test pnuq=8269) [facility] [address] [address], BRAIN, WITHOUT [id number] 14:47:00FINAL REPORT CT, BRAIN, WITHOUT CONTRAST INDICATION: [...] Lubna Lr MDReport Verified Date/Time: 01/10/2019 14:47:25 -[id number] 11:36:00 Test Item Value Reference Range Comments D-DIMER QUANTITATIVE (BEAKER) (test gibw=533) 2.14 MG/L FEU <0.50 Intended Use: The [...] within 95-100% range.RAD, CHEST, 1 VIEW, NON [id number] 08:17:00Reason for exam:->chest painShould this be performed [...] MDReport Verified Date/Time: 01/10/2019 08:17:19 Reading Location: [facility] B1 C013X Ortho Consult Reading Room TROPONIN [id number] 07:02:00 Test Item Value Reference Range Comments TROPONIN I (BEAKER) (test xdit=798) 0.02 ng/mL 0.00-0.03 Troponin I (TnI) levels [...] NATRIURETIC PEPTIDE (BEAKER) (test 130 pg/mL 0-100 psme=911) BASIC METABOLIC [id number] 06:51:00 Test Item Value Reference Range Comments SODIUM (BEAKER) (test 137 meq/L 136-145 xtjj=606) POTASSIUM (BEAKER) (test 4.3 meq/L 3.5-5.1 uwts=655) CHLORIDE (BEAKER) (test 108 meq/L 98-107 xmwd=310) CO2 (BEAKER) (test 21 meq/L 22-29 viqp=035) BLOOD UREA NITROGEN 34 mg/dL 7-21 (BEAKER) (test vcat=991) CREATININE (BEAKER) (test 2.00 mg/dL 0.57-1.25 zzrm=371) GLUCOSE RANDOM (BEAKER) 169 mg/dL 70-105 (test cmsm=141) CALCIUM (BEAKER) (test 8.7 mg/dL 8.4-10.2 gjop=127) EGFR (BEAKER) (test 35 mL/min/1.73 sq m ESTIMATED GFR IS NOT cavd=1009) ACCURATE CREATININE CLEARANCE IN PREDICTING GLOMERULAR FILTRATION RATE. ESTIMATED GFR IS NOT APPLICABLE FOR DIALYSIS PATIENTS. CBC W/PLT COUNT & AUTO [id number] 06:27:00 Test Item Value Reference Range Comments WHITE BLOOD CELL COUNT (BEAKER) (test wldj=396) 5.0 K/ L 3.5-10.5 RED BLOOD CELL COUNT (BEAKER) (test brzx=112) 3.44 M/ L 4.63-6.08 HEMOGLOBIN (BEAKER) (test wnyj=505) 10.8 GM/DL 13.7-17.5 HEMATOCRIT (BEAKER) (test iqvf=455) 31.5 % 40.1-51.0 MEAN CORPUSCULAR VOLUME (BEAKER) (test aczu=840) 91.6 fL 79.0-92.2 MEAN CORPUSCULAR HEMOGLOBIN (BEAKER) (test 31.4 pg 25.7-32.2 czur=094) MEAN CORPUSCULAR HEMOGLOBIN CONC (BEAKER) (test 34.3 GM/DL 32.3-36.5 njvw=205) RED CELL DISTRIBUTION WIDTH (BEAKER) (test 13.7 % 11.6-14.4 dbbt=137) PLATELET COUNT (BEAKER) (test aops=995) 146 K/CU MM 150-450 MEAN PLATELET VOLUME (BEAKER) (test fzqw=633) 12.1 fL 9.4-12.4 NUCLEATED RED BLOOD CELLS (BEAKER) (test 0 /100 WBC 0-0 quot=464) NEUTROPHILS RELATIVE PERCENT (BEAKER) (test 48 % nqrs=068) LYMPHOCYTES RELATIVE PERCENT (BEAKER) (test 37 % sirt=406) MONOCYTES RELATIVE PERCENT (BEAKER) (test 8 % kcvr=781) EOSINOPHILS RELATIVE PERCENT (BEAKER) (test 6 % dpli=054) BASOPHILS RELATIVE PERCENT (BEAKER) (test 1 % azzp=657) NEUTROPHILS ABSOLUTE COUNT (BEAKER) (test 2.42 K/ L 1.78-5.38 yxqz=701) LYMPHOCYTES ABSOLUTE COUNT (BEAKER) (test 1.83 K/ L 1.32-3.57 ajml=343) MONOCYTES ABSOLUTE COUNT (BEAKER) (test 0.40 K/ L 0.30-0.82 ppsq=288) EOSINOPHILS ABSOLUTE COUNT (BEAKER) (test 0.30 K/ L 0.04-0.54 nnnn=884) BASOPHILS ABSOLUTE COUNT (BEAKER) (test 0.04 K/ L 0.01-0.08 egnh=267) IMMATURE GRANULOCYTES-RELATIVE PERCENT (BEAKER) 0 % 0-1 (test eihq=2558) TROPONIN [id number] 23:52:00 Test Item Value Reference Range Comments TROPONIN I (BEAKER) (test soyz=979) 0.03 ng/mL 0.00-0.03 Troponin I (TnI) levels [...] acidosis, acute neurological disease, and persistent tachyarrhythmia.POCT-GLUCOSE [id number] 22:03:00 Test Item Value Reference Range Comments POC-GLUCOSE METER (BEAKER) 315 mg/dL 70-110 TESTED AT [address] (test wiwt=4209) [facility] [address] POCT-GLUCOSE [id number] 20:02:00 Test Item Value Reference Range Comments POC-GLUCOSE METER (BEAKER) 250 mg/dL 70-110 TESTED AT [address] (test mmtj=8427) [place] [address] TROPONIN [id number] 19:05:00 Test Item Value Reference Range Comments TROPONIN I (BEAKER) (test udng=220) 0.04 ng/mL 0.00-0.03 Troponin I (TnI) levels [...] acidosis, acute neurological disease, and persistent tachyarrhythmia.POCT-GLUCOSE [id number] 17:40:00 Test Item Value Reference Range Comments POC-GLUCOSE METER (BEAKER) 246 mg/dL 70-110 TESTED AT [facility] [address] [facility] (test pned=6122) [facility] [address] POCT-GLUCOSE [id number] 08:11:00 Test Item Value Reference Range Comments POC-GLUCOSE METER (BEAKER) 243 mg/dL 70-110 TESTED AT [facility] [address] [facility] (test mhvj=6430) [facility] [address] BASIC METABOLIC [id number] 05:04:00 Test Item Value Reference Range Comments SODIUM (BEAKER) (test 138 meq/L 136-145 aggp=725) POTASSIUM (BEAKER) (test 4.5 meq/L 3.5-5.1 qfwl=935) CHLORIDE (BEAKER) (test 110 meq/L 98-107 duui=401) CO2 (BEAKER) (test 22 meq/L 22-29 hblv=200) BLOOD UREA NITROGEN 34 mg/dL 7-21 (BEAKER) (test vpbq=408) CREATININE (BEAKER) (test 2.01 mg/dL 0.57-1.25 izda=563) GLUCOSE RANDOM (BEAKER) 243 mg/dL 70-105 (test tjic=261) CALCIUM (BEAKER) (test 8.5 mg/dL 8.4-10.2 aard=954) EGFR (BEAKER) (test 35 mL/min/1.73 sq m ESTIMATED GFR IS NOT xdrd=5022) ACCURATE CREATININE CLEARANCE IN PREDICTING GLOMERULAR FILTRATION RATE. ESTIMATED GFR IS NOT APPLICABLE FOR DIALYSIS PATIENTS. [id number] 04:56:00 Test Item Value Reference Range Comments PARTIAL THROMBOPLASTIN TIME (BEAKER) (test 35.0 seconds 22.5-36.0 ymso=657) CBC W/PLT COUNT & AUTO [id number] 04:48:00 Test Item Value Reference Range Comments WHITE BLOOD CELL COUNT (BEAKER) (test vhhr=957) 4.9 K/ L 3.5-10.5 RED BLOOD CELL COUNT (BEAKER) (test xntn=150) 3.36 M/ L 4.63-6.08 HEMOGLOBIN (BEAKER) (test lcjp=618) 10.5 GM/DL 13.7-17.5 HEMATOCRIT (BEAKER) (test vclo=545) 30.5 % 40.1-51.0 MEAN CORPUSCULAR VOLUME (BEAKER) (test wcth=972) 90.8 fL 79.0-92.2 MEAN CORPUSCULAR HEMOGLOBIN (BEAKER) (test 31.3 pg 25.7-32.2 gvdk=718) MEAN CORPUSCULAR HEMOGLOBIN CONC (BEAKER) (test 34.4 GM/DL 32.3-36.5 whqm=316) RED CELL DISTRIBUTION WIDTH (BEAKER) (test 13.5 % 11.6-14.4 vjsy=423) PLATELET COUNT (BEAKER) (test sjvl=144) 116 K/CU MM 150-450 MEAN PLATELET VOLUME (BEAKER) (test sddv=772) 11.9 fL 9.4-12.4 NUCLEATED RED BLOOD CELLS (BEAKER) (test 0 /100 WBC 0-0 vufy=728) NEUTROPHILS RELATIVE PERCENT (BEAKER) (test 52 % ylvs=550) LYMPHOCYTES RELATIVE PERCENT (BEAKER) (test 36 % esxr=803) MONOCYTES RELATIVE PERCENT (BEAKER) (test 8 % lzqm=414) EOSINOPHILS RELATIVE PERCENT (BEAKER) (test 4 % ooqs=549) BASOPHILS RELATIVE PERCENT (BEAKER) (test 0 % avnr=354) NEUTROPHILS ABSOLUTE COUNT (BEAKER) (test 2.51 K/ L 1.78-5.38 ttju=037) LYMPHOCYTES ABSOLUTE COUNT (BEAKER) (test 1.74 K/ L 1.32-3.57 ivcp=042) MONOCYTES ABSOLUTE COUNT (BEAKER) (test 0.38 K/ L 0.30-0.82 mqrc=309) EOSINOPHILS ABSOLUTE COUNT (BEAKER) (test 0.18 K/ L 0.04-0.54 zhjf=948) BASOPHILS ABSOLUTE COUNT (BEAKER) (test 0.02 K/ L 0.01-0.08 nbya=557) IMMATURE GRANULOCYTES-RELATIVE PERCENT (BEAKER) 1 % 0-1 (test okpw=6756) POCT-GLUCOSE [id number] 22:08:00 Test Item Value Reference Range Comments POC-GLUCOSE METER (BEAKER) 364 mg/dL 70-110 Notified HAYLEE BOSS/TESTED AT [facility] (test cyzv=6117) [address] [facility] [address] POCT-GLUCOSE [id number] 17:05:00 Test Item Value Reference Range Comments POC-GLUCOSE METER (BEAKER) 389 mg/dL 70-110 Notified HAYLEE BOSS/TESTED AT [facility] (test szuw=2943) [address] [facility] [address] BASIC METABOLIC [id number] 16:28:00 Test Item Value Reference Range Comments SODIUM (BEAKER) (test 136 meq/L 136-145 qryo=623) POTASSIUM (BEAKER) (test 4.7 meq/L 3.5-5.1 bcld=725) CHLORIDE (BEAKER) (test 107 meq/L 98-107 vopo=253) CO2 (BEAKER) (test 23 meq/L 22-29 cwpt=258) BLOOD UREA NITROGEN 35 mg/dL 7-21 (BEAKER) (test dwpq=188) CREATININE (BEAKER) (test 2.22 mg/dL 0.57-1.25 kdcb=998) GLUCOSE RANDOM (BEAKER) 358 mg/dL 70-105 (test zhsf=447) CALCIUM (BEAKER) (test 8.7 mg/dL 8.4-10.2 vedd=304) EGFR (BEAKER) (test 31 mL/min/1.73 sq m ESTIMATED GFR IS NOT jwha=2669) ACCURATE CREATININE CLEARANCE IN PREDICTING GLOMERULAR FILTRATION RATE. ESTIMATED GFR IS NOT APPLICABLE FOR DIALYSIS PATIENTS. [id number] 16:26:00 Test Item Value Reference Range Comments PROTIME (BEAKER) (test mewx=009) 13.4 seconds 11.9-14.2 INR (BEAKER) (test njdo=017) 1.1 <=5.9 PARTIAL THROMBOPLASTIN TIME (BEAKER) (test 32.0 seconds 22.5-36.0 sutl=233) Effective 09/23/2018: PT Reference Range ChangeNew: 11.9-14.2 Previous: 11.7- 14.7RECOMMENDED COUMADIN/WARFARIN INR THERAPY RANGESSTANDARD DOSE: 2.0-3.0 Includes: PROPHYLAXIS for venous thrombosis, systemic embolization; TREATMENT for venous thrombosis and/or pulmonary embolus.HIGH RISK: Target INR is2.5-3.5 for patients wiht mechanical heart valves.[id number] 16:26:00 Test Item Value Reference Range Comments PARTIAL THROMBOPLASTIN TIME (BEAKER) (test 32.0 seconds 22.5-36.0 tmpk=531) POCT-GLUCOSE [id number] 12:06:00 Test Item Value Reference Range Comments POC-GLUCOSE METER (BEAKER) 321 mg/dL 70-110 Notified HAYLEE BOSS/TESTED AT [facility] (test kksh=9955) [address] [facility] [address] POCT-GLUCOSE [id number] 08:29:00 Test Item Value Reference Range Comments POC-GLUCOSE METER (BEAKER) 263 mg/dL 70-110 TESTED AT [place] [address] [facility] (test vjol=5776) [facility] [address] [id number] 04:54:00 Test Item Value Reference Range Comments PARTIAL THROMBOPLASTIN TIME (BEAKER) (test 31.0 seconds 22.5-36.0 vrre=792) CBC W/PLT COUNT & AUTO [id number] 04:43:00 Test Item Value Reference Range Comments WHITE BLOOD CELL COUNT (BEAKER) (test zxfm=561) 6.6 K/ L 3.5-10.5 RED BLOOD CELL COUNT (BEAKER) (test uvbg=828) 3.45 M/ L 4.63-6.08 HEMOGLOBIN (BEAKER) (test bmcc=561) 10.9 GM/DL 13.7-17.5 HEMATOCRIT (BEAKER) (test nppq=700) 30.8 % 40.1-51.0 MEAN CORPUSCULAR VOLUME (BEAKER) (test jbjx=028) 89.3 fL 79.0-92.2 MEAN CORPUSCULAR HEMOGLOBIN (BEAKER) (test 31.6 pg 25.7-32.2 qdsk=913) MEAN CORPUSCULAR HEMOGLOBIN CONC (BEAKER) (test 35.4 GM/DL 32.3-36.5 zahm=845) RED CELL DISTRIBUTION WIDTH (BEAKER) (test 13.5 % 11.6-14.4 hgob=176) PLATELET COUNT (BEAKER) (test blpz=149) 138 K/CU MM 150-450 MEAN PLATELET VOLUME (BEAKER) (test rcip=354) 12.3 fL 9.4-12.4 NUCLEATED RED BLOOD CELLS (BEAKER) (test 0 /100 WBC 0-0 zifa=422) NEUTROPHILS RELATIVE PERCENT (BEAKER) (test 64 % omfs=663) LYMPHOCYTES RELATIVE PERCENT (BEAKER) (test 24 % eqtr=008) MONOCYTES RELATIVE PERCENT (BEAKER) (test 8 % bcio=764) EOSINOPHILS RELATIVE PERCENT (BEAKER) (test 3 % cnfv=881) BASOPHILS RELATIVE PERCENT (BEAKER) (test 1 % tpbt=467) NEUTROPHILS ABSOLUTE COUNT (BEAKER) (test 4.22 K/ L 1.78-5.38 boef=659) LYMPHOCYTES ABSOLUTE COUNT (BEAKER) (test 1.54 K/ L 1.32-3.57 ggkc=595) MONOCYTES ABSOLUTE COUNT (BEAKER) (test 0.53 K/ L 0.30-0.82 dldb=442) EOSINOPHILS ABSOLUTE COUNT (BEAKER) (test 0.20 K/ L 0.04-0.54 ygql=465) BASOPHILS ABSOLUTE COUNT (BEAKER) (test 0.03 K/ L 0.01-0.08 qxnw=225) IMMATURE GRANULOCYTES-RELATIVE PERCENT (BEAKER) 1 % 0-1 (test cbaa=9648) POCT-GLUCOSE [id number] 22:11:00 Test Item Value Reference Range Comments POC-GLUCOSE METER (BEAKER) 319 mg/dL 70-110 Notified HAYLEE BOSS/TESTED AT [facility] (test cdjv=9459) [address] [place] [address] [id number] 20:11:00 Test Item Value Reference Range Comments PARTIAL THROMBOPLASTIN TIME (BEAKER) (test 33.3 seconds 22.5-36.0 yksq=363) POCT-GLUCOSE [id number] 18:49:00 Test Item Value Reference Range Comments POC-GLUCOSE METER (BEAKER) 309 mg/dL 70-110 TESTED AT [address] (test ilga=5138) [place] [id number] POCT-GLUCOSE [id number] 14:48:00 Test Item Value Reference Range Comments POC-GLUCOSE METER (BEAKER) 161 mg/dL 70-110 TESTED AT [address] (test phrq=1826) [place] [address] POCT-GLUCOSE [id number] 14:46:00 Test Item Value Reference Range Comments POC-GLUCOSE METER (BEAKER) 159 mg/dL 70-110 TESTED AT [address] (test ogzo=0210) [place] [address] TROPONIN [id number] 13:58:00 Test Item Value Reference Range Comments TROPONIN I (BEAKER) (test hvkj=233) < ng/mL 0.00-0.03 Troponin I (TnI) levels [...] failure, acidosis, acute neurological disease, and persistent tachyarrhythmia.[id number] 12:25:00 Test Item Value Reference Range Comments PARTIAL THROMBOPLASTIN TIME (BEAKER) (test 30.3 seconds 22.5-36.0 dbop=619) POCT-GLUCOSE [id number] 12:18:00 Test Item Value Reference Range Comments POC-GLUCOSE METER (BEAKER) 168 mg/dL 70-110 TESTED AT [address] (test vksn=0723) [place] [address] POCT-GLUCOSE [id number] 11:06:00 Test Item Value Reference Range Comments POC-GLUCOSE METER (BEAKER) 180 mg/dL 70-110 TESTED AT [address] (test klhd=8124) [place] [address] POCT-GLUCOSE [id number] 10:21:00 Test Item Value Reference Range Comments POC-GLUCOSE METER (BEAKER) 195 mg/dL 70-110 TESTED AT [address] (test pujn=2948) [place] [address] POCT-GLUCOSE [id number] 10:21:00 Test Item Value Reference Range Comments POC-GLUCOSE METER (BEAKER) 180 mg/dL 70-110 TESTED AT [address] (test bcgn=9712) [facility] [address] POCT-GLUCOSE [id number] 08:06:00 Test Item Value Reference Range Comments POC-GLUCOSE METER (BEAKER) 218 mg/dL 70-110 TESTED AT [address] (test qtuf=4463) [place] [address] TROPONIN [id number] 07:00:00 Test Item Value Reference Range Comments TROPONIN I (BEAKER) (test lpow=521) 0.01 ng/mL 0.00-0.03 Troponin I (TnI) levels [...] afterwardsOnce on admission and Daily AM afterwardsPOCT-GLUCOSE [id number] 06:58:00 Test Item Value Reference Range Comments POC-GLUCOSE METER (BEAKER) 248 mg/dL 70-110 TESTED AT [facility] [address] [facility] (test nxda=2909) [facility] [address] [id number] 06:54:00 Test Item Value Reference Range Comments PHOSPHORUS (BEAKER) (test imri=621) 2.5 mg/dL 2.3-4.7 Once on admission and Daily AM afterwardsOnce on admission and Daily AM afterwardsOnce on admission and Daily AM [id number] 06:54:00 Test Item Value Reference Range Comments MAGNESIUM (BEAKER) (test qqze=275) 2.2 mg/dL 1.6-2.6 Once on admission and Daily AM afterwardsOnce on admission and Daily AM afterwardsOnce on admission and Daily AM afterwardsBASIC METABOLIC [id number] 06:54:00 Test Item Value Reference Range Comments SODIUM (BEAKER) (test 137 meq/L 136-145 jnck=852) POTASSIUM (BEAKER) (test 4.4 meq/L 3.5-5.1 rhpq=333) CHLORIDE (BEAKER) (test 111 meq/L 98-107 uzsh=186) CO2 (BEAKER) (test 22 meq/L 22-29 rrmb=751) BLOOD UREA NITROGEN 37 mg/dL 7-21 (BEAKER) (test zocc=778) CREATININE (BEAKER) (test 1.93 mg/dL 0.57-1.25 iwdf=511) GLUCOSE RANDOM (BEAKER) 253 mg/dL 70-105 (test yuqj=699) CALCIUM (BEAKER) (test 8.1 mg/dL 8.4-10.2 utqr=222) EGFR (BEAKER) (test 37 mL/min/1.73 sq m ESTIMATED GFR IS NOT cfqt=2072) ACCURATE CREATININE CLEARANCE IN PREDICTING GLOMERULAR FILTRATION RATE. ESTIMATED GFR IS NOT APPLICABLE FOR DIALYSIS PATIENTS. Once on admission and Daily AM afterwardsOnce on admission and Daily AM afterwardsOnce on admission and Daily AM afterwardsCBC W/PLT COUNT & AUTO [id number] 06:42:00 Test Item Value Reference Range Comments WHITE BLOOD CELL COUNT (BEAKER) (test oonx=974) 4.8 K/ L 3.5-10.5 RED BLOOD CELL COUNT (BEAKER) (test rohl=283) 3.50 M/ L 4.63-6.08 HEMOGLOBIN (BEAKER) (test ngir=041) 11.0 GM/DL 13.7-17.5 HEMATOCRIT (BEAKER) (test orwz=314) 31.7 % 40.1-51.0 MEAN CORPUSCULAR VOLUME (BEAKER) (test tiqj=782) 90.6 fL 79.0-92.2 MEAN CORPUSCULAR HEMOGLOBIN (BEAKER) (test 31.4 pg 25.7-32.2 dvne=113) MEAN CORPUSCULAR HEMOGLOBIN CONC (BEAKER) (test 34.7 GM/DL 32.3-36.5 vdpy=717) RED CELL DISTRIBUTION WIDTH (BEAKER) (test 13.5 % 11.6-14.4 vdwf=895) PLATELET COUNT (BEAKER) (test kmrp=359) 118 K/CU MM 150-450 MEAN PLATELET VOLUME (BEAKER) (test qesn=054) 12.1 fL 9.4-12.4 NUCLEATED RED BLOOD CELLS (BEAKER) (test 0 /100 WBC 0-0 rlzj=437) NEUTROPHILS RELATIVE PERCENT (BEAKER) (test 42 % txjt=958) LYMPHOCYTES RELATIVE PERCENT (BEAKER) (test 46 % hjli=549) MONOCYTES RELATIVE PERCENT (BEAKER) (test 7 % fqbp=014) EOSINOPHILS RELATIVE PERCENT (BEAKER) (test 4 % gmai=571) BASOPHILS RELATIVE PERCENT (BEAKER) (test 1 % lpzz=355) NEUTROPHILS ABSOLUTE COUNT (BEAKER) (test 2.00 K/ L 1.78-5.38 ghga=593) LYMPHOCYTES ABSOLUTE COUNT (BEAKER) (test 2.22 K/ L 1.32-3.57 rwbd=779) MONOCYTES ABSOLUTE COUNT (BEAKER) (test 0.34 K/ L 0.30-0.82 xbxf=413) EOSINOPHILS ABSOLUTE COUNT (BEAKER) (test 0.20 K/ L 0.04-0.54 thov=384) BASOPHILS ABSOLUTE COUNT (BEAKER) (test 0.04 K/ L 0.01-0.08 kdbl=089) IMMATURE GRANULOCYTES-RELATIVE PERCENT (BEAKER) 1 % 0-1 (test rxeq=8342) [id number] 06:28:00 Test Item Value Reference Range Comments PARTIAL THROMBOPLASTIN TIME (BEAKER) (test 30.6 seconds 22.5-36.0 vpnp=636) POCT-GLUCOSE [id number] 06:01:00 Test Item Value Reference Range Comments POC-GLUCOSE METER (BEAKER) 266 mg/dL 70-110 TESTED AT [address] (test ktjw=0480) [place] [id number] POCT-GLUCOSE [id number] 04:57:00 Test Item Value Reference Range Comments POC-GLUCOSE METER (BEAKER) 271 mg/dL 70-110 TESTED AT [address] (test yhwc=3833) [facility] [address] POCT-GLUCOSE [id number] 04:05:00 Test Item Value Reference Range Comments POC-GLUCOSE METER (BEAKER) 308 mg/dL 70-110 Notified HAYLEE BOSS/TESTED AT [facility] (test byzb=2652) [address] [place] [address] POCT-GLUCOSE [id number] 02:57:00 Test Item Value Reference Range Comments POC-GLUCOSE METER (BEAKER) 343 mg/dL 70-110 Notified HAYLEE BOSS/TESTED AT [facility] (test bcsj=5505) [address] [place] [address] RAD, CHEST, 1 VIEW, NON [id number] 02:27:00Reason for exam:->mediastinal wideningShould this be performed [...] Wilmer Kline Verified Date/Time: 01/07/2019 02:27:45 POCT-GLUCOSE [id number] 01:57:00 Test Item Value Reference Range Comments POC-GLUCOSE METER (BEAKER) 369 mg/dL 70-110 TESTED AT [address] (test uynn=4055) [place] [id number] POCT-GLUCOSE [id number] 01:06:00 Test Item Value Reference Range Comments POC-GLUCOSE METER (BEAKER) 395 mg/dL 70-110 Notified HAYLEE BOSS/TESTED AT [facility] (test zhib=1796) [address] [place] [address] TROPONIN [id number] 00:36:00 Test Item Value Reference Range Comments TROPONIN I (BEAKER) (test rivc=593) 0.01 ng/mL 0.00-0.03 Troponin I (TnI) levels [...] NATRIURETIC PEPTIDE (BEAKER) (test 151 pg/mL 0-100 gwfu=802) [id number] 00:19:00 Test Item Value Reference Range Comments PARTIAL THROMBOPLASTIN TIME (BEAKER) (test 28.2 seconds 22.5-36.0 calb=674) Prior to initiating heparinPOCT-GLUCOSE [id number] 00:16:00 Test Item Value Reference Range Comments POC-GLUCOSE METER (BEAKER) 413 mg/dL 70-110 TESTED AT [address] (test itnr=3065) [place] [id number] POCT-GLUCOSE [id number] 23:10:00 Test Item Value Reference Range Comments POC-GLUCOSE METER (BEAKER) 452 mg/dL 70-110 Notified HAYLEE BOSS/TESTED AT [facility] (test rcxm=0811) [address] [facility] [address] POCT-GLUCOSE [id number] 22:06:00 Test Item Value Reference Range Comments POC-GLUCOSE METER (BEAKER) 383 mg/dL 70-110 TESTED AT [facility] [address] (test pjst=6475) [facility] [address] [address], BRAIN, WITHOUT [id number] 21:38:00FINAL REPORT CT Head without contrast CLINICAL [...] by: WILMER KLINE MD on 02/2019 09:38 [facility] METABOLIC [id number] 21:12:00 Test Item Value Reference Range Comments SODIUM (BEAKER) (test 134 meq/L 136-145 kkir=434) POTASSIUM (BEAKER) (test 4.9 meq/L 3.5-5.1 Specimen slightly zyqx=042) hemolyzed CHLORIDE (BEAKER) (test 107 meq/L 98-107 zvmc=561) CO2 (BEAKER) (test 19 meq/L 22-29 jpti=658) BLOOD UREA NITROGEN 36 mg/dL 7-21 (BEAKER) (test sjnu=088) CREATININE (BEAKER) (test 1.95 mg/dL 0.57-1.25 Specimen slightly wyuw=946) hemolyzed GLUCOSE RANDOM (BEAKER) 311 mg/dL 70-105 (test bsdz=998) CALCIUM (BEAKER) (test 8.5 mg/dL 8.4-10.2 syby=426) EGFR (BEAKER) (test 36 mL/min/1.73 sq m ESTIMATED GFR IS NOT okth=9217) ACCURATE CREATININE CLEARANCE IN PREDICTING GLOMERULAR FILTRATION RATE. ESTIMATED GFR IS NOT APPLICABLE FOR DIALYSIS PATIENTS. HEMOGLOBIN [id number] 20:17:00 Test Item Value Reference Range Comments HEMOGLOBIN A1C (BEAKER) (test cpsi=141) 11.9 % 4.3-6.1 TROPONIN [id number] 19:52:00 Test Item Value Reference Range Comments TROPONIN I (BEAKER) (test yqlw=169) < ng/mL 0.00-0.03 Troponin I (TnI) levels [...] acute neurological disease, and persistent tachyarrhythmia.HEPATIC FUNCTION [id number] 19:46: 00 Test Item Value Reference Range Comments TOTAL PROTEIN (BEAKER) (test 6.3 gm/dL 6.0-8.3 Specimen slightly hemolyzed vrhl=153) ALBUMIN (BEAKER) (test 2.8 g/dL 3.5-5.0 Specimen slightly hemolyzed knxz=7174) BILIRUBIN TOTAL (BEAKER) (test 0.4 mg/dL 0.2-1.2 Specimen slightly hemolyzed ehad=622) BILIRUBIN DIRECT (BEAKER) (test 0.1 mg/dL 0.1-0.5 Specimen slightly hemolyzed tkfd=630) ALKALINE PHOSPHATASE (BEAKER) 104 U/L 40-150 (test fyqy=950) AST (SGOT) (BEAKER) (test 29 U/L 5-34 Specimen slightly hemolyzed kjtu=807) ALT (SGPT) (BEAKER) (test 23 U/L 6-55 Specimen slightly hemolyzed gwcr=744) Specimen moderately [id number] 19:32:00 Test Item Value Reference Range Comments PARTIAL THROMBOPLASTIN TIME (BEAKER) (test 28.1 seconds 22.5-36.0 bimv=018) PROTHROMBIN TIME/[id number] 19:31:00 Test Item Value Reference Range Comments PROTIME (BEAKER) (test ayot=387) 11.4 seconds 11.9-14.2 INR (BEAKER) (test dsri=762) 0.9 <=5.9 Effective 09/23/2018: PT Reference Range ChangeNew: 11.9-14.2 Previous: 11.7- 14.7RECOMMENDED COUMADIN/WARFARIN INR THERAPY RANGESSTANDARD DOSE: 2.0-3.0 Includes: PROPHYLAXIS for venous thrombosis, systemic embolization; TREATMENT for venous thrombosis and/or pulmonary embolus.HIGH RISK: Target INR is2.5-3.5 for patients wiht mechanical heart valves.CBC W/PLT COUNT & AUTO [id number] 19:25:00 Test Item Value Reference Range Comments WHITE BLOOD CELL COUNT (BEAKER) (test gqzf=983) 5.2 K/ L 3.5-10.5 RED BLOOD CELL COUNT (BEAKER) (test qxit=632) 3.84 M/ L 4.63-6.08 HEMOGLOBIN (BEAKER) (test dijf=077) 12.2 GM/DL 13.7-17.5 HEMATOCRIT (BEAKER) (test xyml=873) 34.6 % 40.1-51.0 MEAN CORPUSCULAR VOLUME (BEAKER) (test zydz=081) 90.1 fL 79.0-92.2 MEAN CORPUSCULAR HEMOGLOBIN (BEAKER) (test 31.8 pg 25.7-32.2 shhc=625) MEAN CORPUSCULAR HEMOGLOBIN CONC (BEAKER) (test 35.3 GM/DL 32.3-36.5 xonj=297) RED CELL DISTRIBUTION WIDTH (BEAKER) (test 13.6 % 11.6-14.4 ovrn=485) PLATELET COUNT (BEAKER) (test jdtv=092) 140 K/CU MM 150-450 MEAN PLATELET VOLUME (BEAKER) (test ktvn=607) 11.8 fL 9.4-12.4 NUCLEATED RED BLOOD CELLS (BEAKER) (test 0 /100 WBC 0-0 jefe=086) NEUTROPHILS RELATIVE PERCENT (BEAKER) (test 54 % kvoo=501) LYMPHOCYTES RELATIVE PERCENT (BEAKER) (test 36 % mtqe=435) MONOCYTES RELATIVE PERCENT (BEAKER) (test 5 % jfoz=313) EOSINOPHILS RELATIVE PERCENT (BEAKER) (test 3 % ucve=036) BASOPHILS RELATIVE PERCENT (BEAKER) (test 1 % dcxv=543) NEUTROPHILS ABSOLUTE COUNT (BEAKER) (test 2.82 K/ L 1.78-5.38 oqhd=784) LYMPHOCYTES ABSOLUTE COUNT (BEAKER) (test 1.89 K/ L 1.32-3.57 kgkq=122) MONOCYTES ABSOLUTE COUNT (BEAKER) (test 0.28 K/ L 0.30-0.82 ijfk=857) EOSINOPHILS ABSOLUTE COUNT (BEAKER) (test 0.17 K/ L 0.04-0.54 nbvu=120) BASOPHILS ABSOLUTE COUNT (BEAKER) (test 0.04 K/ L 0.01-0.08 pbma=787) IMMATURE GRANULOCYTES-RELATIVE PERCENT (BEAKER) 1 % 0-1 (test nzrz=8731) POCT-GLUCOSE [id number] 17:51:00 Test Item Value Reference Range Comments POC-GLUCOSE METER (BEAKER) 342 mg/dL 70-110 Notified HAYLEE BOSS/TESTED AT [facility] (test dixr=5475) [address] [facility] [id number]
[2019-05-17] MEDS ORDERED: LEVALBUTEROL 1.25 MG/3 ML NEB ONE (23:14)
[2019-05-17] MEDS ORDERED: NA CHLORIDE 0.9% 1,000 ML ONE (23:14)
[2019-05-17] MEDS ORDERED: IPRATROPIUM BROM 0.5MG/2.5ML ONE (23:14)
[2019-05-17] MEDS ORDERED: INSULIN -REGULAR HUMAN 50 UNIT/0.5 ML ML ONE (23:15)
[2019-05-17 23:27] LABS: Absolute Lymphocytes (CBC) 1.9 K/uL (0.7-4.9); Hematocrit 41.9 % (39.6-49.0); MPV 11.9 fL (7.6-11.3); RBC Red Blood Cell Count 4.51 M/uL (4.33-5.43)
[2019-05-17 23:37] LABS: Protime INR 0.91
[2019-05-17 23:55] LABS: ALT/SGPT 30 U/L (12-78); AST/SGOT 25 U/L (15-37); Albumin 2.4 g/dL (3.4-5.0); Alkaline Phosphatase 154 U/L (45-117); BUN Blood Urea Nitrogen 43 mg/dL (7-18); Bicarbonate 21 mmol/L (21-32); Bilirubin Direct 0.1 mg/dL (0-0.2); Bilirubin Total 0.3 mg/dL (0.2-1.0); Lipase 296 U/L (73-393); Magnesium 2.3 mg/dL (1.8-2.4); NT PRO-BNP 180 pg/mL (<125); Potassium 4.3 mmol/L (3.5-5.1); Protein, Total 6.5 g/dL (6.4-8.2); Sodium Level 135 mmol/L (136-145); Troponin (Emerg Dept Use Only) < 0.02 ng/mL (0.0-0.045)
[2019-05-17 23:56] LABS: Glucose Level 651 mg/dL (74-106)
[2019-05-17] MEDS ORDERED: THIAMINE 200 MG/2 ML INJ ONE (23:58)
[2019-05-17] MEDS ORDERED: ONDANSETRON 4 MG/2 ML VIAL ONE (23:58)
[2019-05-17] MEDS ORDERED: HYDROMORPHONE HCL 0.5 MG/0.5 ML INJ ONE (23:58)
--- NOTE | 2019-05-18 00:08 | EDPHYS ---
Physician Documentation [facility] Name: Wero Kwong Sr Age: 53 yrs Sex: Male : 1965 Arrival Date: 05/17/2019 Time: 22:52 Bed 3 Private MD: ED Physician Mohinder Tejada HPI: 05/17 23:08 This 53 yrs old Male presents to ER via Unassigned with complaints of vanessa Breathing Difficulty. 23:08 The patient has shortness of breath at rest, with light activity. Onset: The vanessa symptoms/episode began/occurred 2 day(s) ago. Duration: The symptoms are continuous, and are steadily getting worse. The patient's shortness of breath is aggravated by eating. Associated signs and symptoms: Pertinent positives: non-productive cough. Severity of symptoms: At their worst the symptoms were moderate in the emergency department the symptoms have improved mildly. The patient has experienced similar episodes in the past, several times. Historical: - Allergies: 23:06 Codeine; ea 23:06 Hydrocodone-Acetaminophen; ea 23:06 Morphine; ea - PMHx: 23:06 Seizures; neuropathy; Myocardial infarction; kidney failure; Hypertension; High ea Cholesterol; Diabetes - IDDM; CVA; Cirrhosis; CHF; CAD; - PSHx: 23:06 cardiac stents; Cholecystectomy; ea - Immunization history:: Adult Immunizations up to date. - Social history:: Smoking status: Patient reports the use of cigarette tobacco products, denies chronic smoking, but will smoke occasionally. - Ebola Screening: : No symptoms or risks identified at this time. ROS: 23:09 Constitutional: Negative for fever, chills, and weight loss, Eyes: Negative for injury, vanessa pain, redness, and discharge, ENT: Negative for injury, pain, and discharge, Neck: Negative for injury, pain, and swelling, Cardiovascular: Negative for chest pain, palpitations, and edema, Back: Negative for injury and pain, : Negative for injury, bleeding, discharge, and swelling, Skin: Negative for injury, rash, and discoloration, Neuro: Negative for headache, weakness, numbness, tingling, and seizure, Psych: Negative for depression, anxiety, suicide ideation, homicidal ideation, and hallucinations, Allergy/Immunology: Negative for hives, rash, and allergies, Endocrine: Negative for neck swelling, polydipsia, polyuria, polyphagia, and marked weight changes, Hematologic/Lymphatic: Negative for swollen nodes, abnormal bleeding, and unusual bruising. 23:09 Respiratory: Positive for cough, dyspnea on exertion, shortness of breath. 23:09 MS/extremity: Positive for swelling, tenderness. Exam: 23:09 Constitutional: This is a well developed, well nourished patient who is awake, alert, vanessa and in no acute distress. Head/Face: Normocephalic, atraumatic. Eyes: Pupils equal round and reactive to light, extra-ocular motions intact. Lids and lashes normal. Conjunctiva and sclera are non-icteric and not injected. Cornea within normal limits. Periorbital areas with no swelling, redness, or edema. ENT: Nares patent. No nasal discharge, no septal abnormalities noted. Tympanic membranes are normal and external auditory canals are clear. Oropharynx with no redness, swelling, or masses, exudates, or evidence of obstruction, uvula midline. Mucous membranes moist. Neck: Trachea midline, no thyromegaly or masses palpated, and no cervical lymphadenopathy. Supple, full range of motion without nuchal rigidity, or vertebral point tenderness. No Meningismus. Chest/axilla: Normal chest wall appearance and motion. Nontender with no deformity. No lesions are appreciated. Cardiovascular: Regular rate and rhythm with a normal S1 and S2. No gallops, murmurs, or rubs. Normal PMI, no JVD. No pulse deficits. Abdomen/GI: Soft, non-tender, with normal bowel sounds. No distension or tympany. No guarding or rebound. No evidence of tenderness throughout. Back: No spinal tenderness. No costovertebral tenderness. Full range of motion. Male : Normal genitalia with no discharge or lesions. Skin: Warm, dry with normal turgor. Normal color with no rashes, no lesions, and no evidence of cellulitis. MS/ Extremity: Pulses equal, no cyanosis. Neurovascular intact. Full, normal range of motion. Neuro: Awake and alert, GCS 15, oriented to person, place, time, and situation. Cranial nerves II-XII grossly intact. Motor strength 5/5 in all extremities. Sensory grossly intact. Cerebellar exam normal. Normal gait. Psych: Awake, alert, with orientation to person, place and time. Behavior, mood, and affect are within normal limits. 23:09 Respiratory: mild respiratory distress is noted, Respirations: labored breathing, Breath sounds: decreased breath sounds, that are mild, rhonchi, Respiratory rate: 18 Vital Signs: 05/16 22:40 BP 164 / 93; Pulse 101; Resp 18; Temp 98.7; Pulse Ox 96% on R/A; Weight 99.79 kg; ea Height 5 ft. 7 in. (170.18 cm); 05/17 23:00 BP 158 / 86; Pulse 97; Resp 20; Pulse Ox 97% ; ea 05/18 02:00 BP 150 / 82; Pulse 97; Resp 19; Temp 98.6; Pulse Ox 97% on R/A; ea 03:00 BP 155 / 94; Pulse 94; Resp 20; Temp 98.5; Pulse Ox 97% on R/A; ea 05/16 22:40 Body Mass Index 34.46 (99.79 kg, 170.18 cm) ea MDM: 05/17 22:54 Patient medically screened. [facility] 23:11 Data reviewed: vital signs, nurses notes, lab test result(s), EKG, radiologic studies, [facility] CT scan, plain films. 05/17 23:05 Order name: Glucose, Ancillary Testing; Complete Time: 23:08 EDPA 05/17 23:07 Order name: Basic Metabolic Panel; Complete Time: 00:02 [facility] 05/17 23:07 Order name: CBC with Diff; Complete Time: 00:02 [facility] 05/17 23:07 Order name: LFT's; Complete Time: 00:02 [facility] 05/17 23:07 Order name: Magnesium; Complete Time: 00:02 [facility] 05/17 23:07 Order name: PT-INR; Complete Time: 00:02 [facility] 05/17 23:07 Order name: Urine Culture [facility] 05/17 23:07 Order name: Blood Culture Adult (2) [facility] 05/17 23:08 Order name: AMMONIA; Complete Time: 01:19 [facility] 05/17 23:12 Order name: Alcohol Level; Complete Time: 00:02 [facility] 05/17 23:31 Order name: Troponin (Emerg Dept Use Only); Complete Time: 00:02 EDPA 05/17 23:07 Order name: XRAY Chest (1 view) [facility] 05/17 23:07 Order name: CT Traumagram (Head C Spine CAP wo con) [facility] 05/17 23:31 Order name: NT PRO-BNP; Complete Time: 00:02 EDMS 05/17 23:31 Order name: Lipase; Complete Time: 00:02 EDPA 05/18 00:02 Order name: Influenza Screen (a \T\ B); Complete Time: 01:19 [facility] 05/18 03:07 Order name: Glucose, Ancillary Testing EDPA 05/17 23:07 Order name: EKG; Complete Time: 23:08 [facility] 05/17 23:07 Order name: Cardiac monitoring; Complete Time: 02:25 [facility] 05/17 23:07 Order name: EKG - Nurse/Tech; Complete Time: 02:25 [facility] 05/17 23:07 Order name: IV Saline Lock; Complete Time: 02:25 [facility] 05/17 23:07 Order name: Labs collected and sent; Complete Time: 02:25 [facility] 05/17 23:07 Order name: O2 Per Protocol; Complete Time: 02:25 [facility] 05/17 23:07 Order name: O2 Sat Monitoring; Complete Time: 02:25 vanessa Administered Medications: 05/18 00:00 Drug: NS 0.9% 1000 ml Route: IV; Rate: 75 ml/hr; Site: right forearm; ea 02:23 Follow up: Response: No adverse reaction; IV Status: Completed infusion ea 00:00 Drug: Insulin Regular Human 10 units {Co-Signature: jb4 (Krzysztof Mcknight RN).} Route: IVP; ea Site: left forearm; 01:00 Follow up: Response: No adverse reaction ea 00:00 Drug: Insulin Regular Human 10 units {Co-Signature: jb4 (Krzysztof Mcknight RN).} Route: ea Sub-Q; Site: left upper arm; 01:00 Follow up: Response: No adverse reaction ea 00:00 Drug: Xopenex 2.5 mg Route: Inhalation; ea 00:00 Drug: AtroVENT Aerosol 0.5 mg Route: Inhalation; ea 00:00 Drug: Thiamine 100 mg Route: IV; Rate: bolus; Site: left forearm; ea 01:00 Follow up: IV Status: Completed infusion ea 00:00 Drug: Zofran 4 mg Route: IVP; Site: right antecubital; ea 01:00 Follow up: Response: No adverse reaction; Pain is decreased; RASS: Alert and Calm (0) ea 00:02 Drug: Dilaudid 0.5 mg Route: IVP; Site: right antecubital; ea 01:00 Follow up: Response: No adverse reaction ea 00:34 CANCELLED (Duplicate Order): Rocephin - (cefTRIAXone) 1 grams IVPB once over 30 mins; vanessa (mix in 50 mL NS) 01:33 Drug: NS 0.9% 1000 ml Route: IV; Rate: 1 bolus; Site: left forearm; ea 02:32 Follow up: Response: No adverse reaction; IV Status: Completed infusion; IV Intake: ea 1000ml 01:33 Drug: Rocephin 1 grams Route: IV; Rate: per protocol; Site: left forearm; ea 02:00 Follow up: Response: No adverse reaction; IV Status: Completed infusion ea 01:39 Drug: Dilaudid 0.5 mg Route: IVP; Site: left forearm; ea 02:32 Follow up: Response: No adverse reaction; Pain is decreased; RASS: Alert and Calm (0) ea Disposition: 05/18/19 00:06 Hospitalization ordered by Janeth Talbot for Inpatient Admission. Preliminary diagnosis are Dyspnea, Dysphagia, Type 1 diabetes mellitus - uncontrolled, Unspecified cirrhosis of liver, Unspecified kidney failure. - Bed requested for Telemetry/MedSurg (Inpatient). - Status is Inpatient Admission. ea - Condition is Fair. - Problem is new. - Symptoms have improved. UTI on Admission? No Signatures: Dispatcher [employer] EDMS Lynette Rivas RN RN mw Anderson, Corey, MD MD cha Antunez, Elena, RN RN ea James Bryson RN jb4 Corrections: (The following items were deleted from the chart) 05/17 23:30 23:08 PROBNP+C.LAB.BRZ ordered. EDMS EDMS 23:30 23:08 TROPONIN (EMERG DEPT USE ONLY)+C.LAB.BRZ ordered. EDMS EDMS 23:30 23:08 LIPASE+C.LAB.BRZ ordered. EDMS EDMS 05/18 00:34 00:13 Rocephin - (cefTRIAXone) 1 grams IVPB once over 30 mins; (mix in 50 mL NS) vanessa ordered. vanessa 00:45 00:06 Hospitalization Ordered by Janeth Talbot MD for Inpatient Admission. Preliminary diagnosis is Dyspnea; Dysphagia; Type 1 diabetes mellitus - uncontrolled; Unspecified cirrhosis of liver. Bed requested for Telemetry/MedSurg (Inpatient). Status is Inpatient Admission. Condition is Fair. Problem is new. Symptoms have improved. UTI on Admission? No. vanessa 01:19 00:45 05/18/2019 00:06 Hospitalization Ordered by Janeth Talbot MD for Inpatient vanessa Admission. Preliminary diagnosis is Dyspnea; Dysphagia; Type 1 diabetes mellitus - uncontrolled; Unspecified cirrhosis of liver. Bed requested for Telemetry/MedSurg (Inpatient). Status is Inpatient Admission. Condition is Fair. Problem is new. Symptoms have improved. UTI on Admission? No. mw 03:37 01:19 05/18/2019 00:06 Hospitalization Ordered by Janeth Talbot MD for Inpatient ea Admission. Preliminary diagnosis is Dyspnea; Dysphagia; Type 1 diabetes mellitus - uncontrolled; Unspecified cirrhosis of liver; Unspecified kidney failure. Bed requested for Telemetry/MedSurg (Inpatient). Status is Inpatient Admission. Condition is Fair. Problem is new. Symptoms have improved. UTI on Admission? No. vanessa
--- NOTE | 2019-05-18 00:08 | ER ---
Nurse's Notes [facility] Name: Wero Kwong Sr Age: 53 yrs Sex: Male : 1965 Arrival Date: 05/17/2019 Time: 22:52 Bed 3 Private MD: Diagnosis: Dyspnea;Dysphagia;Type 1 diabetes mellitus-uncontrolled;Unspecified cirrhosis of liver;Unspecified kidney failure Presentation: 05/17 22:40 Presenting complaint: EMS states: Toned out for difficulty breathing, EMS reported pt ea was coughing with clear secretions, BGL read high, complaining of chest pain and pain to right shoulder from fall earlier in the day, without LOC. Transition of care: patient was not received from another setting of care. Onset of symptoms was May 17, 2019. Risk Assessment: Do you want to hurt yourself or someone else? Patient reports no desire to harm self or others. Initial Sepsis Screen: Does the patient meet any 2 criteria? HR > 90 bpm. Does the patient have a suspected source of infection? No. Patient's initial sepsis screen is negative. Care prior to arrival: None. 22:40 Method Of Arrival: EMS: [facility] ea 22:52 Acuity: [place] [place] 2 ea Triage Assessment: 22:40 General: Behavior is appropriate for age. Respiratory: Reports shortness of breath ea Onset: The symptoms/episode began/occurred today, the patient reports symptoms have resolved. Historical: - Allergies: 23:06 Codeine; ea 23:06 Hydrocodone-Acetaminophen; ea 23:06 Morphine; ea - PMHx: 23:06 Seizures; neuropathy; Myocardial infarction; kidney failure; Hypertension; High ea Cholesterol; Diabetes - IDDM; CVA; Cirrhosis; CHF; CAD; - PSHx: 23:06 cardiac stents; Cholecystectomy; ea - Immunization history:: Adult Immunizations up to date. - Social history:: Smoking status: Patient reports the use of cigarette tobacco products, denies chronic smoking, but will smoke occasionally. - Ebola Screening: : No symptoms or risks identified at this time. Screenin:28 Abuse screen: Denies threats or abuse. Nutritional screening: No deficits noted. ea Tuberculosis screening: No symptoms or risk factors identified. Fall Risk IV access (20 points). Assessment: 23:29 Pain: Complains of pain in right shoulder, stan lower extremities. Cardiovascular: ea Patient's skin is warm and dry. Respiratory: Airway is patent Respiratory effort is even, unlabored, Respiratory pattern is regular, symmetrical, Breath sounds are clear. 23:29 General: Appears uncomfortable, Behavior is appropriate for age. Neuro: Level of ea Consciousness is awake, alert, obeys commands, Oriented to person, place, time, situation. Derm: Skin is pink, warm \T\ dry. 05/18 00:00 Reassessment: Patient and/or family updated on plan of care and expected duration. Pain ea level reassessed. Patient is alert, oriented x 3, equal unlabored respirations, skin warm/dry/pink. 01:00 Reassessment: Patient and/or family updated on plan of care and expected duration. Pain ea level reassessed. Patient is alert, oriented x 3, equal unlabored respirations, skin warm/dry/pink. 02:36 Reassessment: Patient and/or family updated on plan of care and expected duration. Pain ea level reassessed. Patient is alert, oriented x 3, equal unlabored respirations, skin warm/dry/pink. Report called to Olga LEACH on fourth floor. 03:00 Reassessment: Patient and/or family updated on plan of care and expected duration. Pain ea level reassessed. Patient is alert, oriented x 3, equal unlabored respirations, skin warm/dry/pink. Pt admitted to fourth floor, left ED via stretcher per tech, pt tolerating well, no s/s of pain or discomfort noted at this time. Vital Signs: 05/16 22:40 BP 164 / 93; Pulse 101; Resp 18; Temp 98.7; Pulse Ox 96% on R/A; Weight 99.79 kg; ea Height 5 ft. 7 in. (170.18 cm); 05/17 23:00 BP 158 / 86; Pulse 97; Resp 20; Pulse Ox 97% ; ea 05/18 02:00 BP 150 / 82; Pulse 97; Resp 19; Temp 98.6; Pulse Ox 97% on R/A; ea 03:00 BP 155 / 94; Pulse 94; Resp 20; Temp 98.5; Pulse Ox 97% on R/A; ea 05/16 22:40 Body Mass Index 34.46 (99.79 kg, 170.18 cm) ea ED Course: 01/20 22:40 Arm band placed on right wrist. Patient placed in an exam room, on a stretcher, on ea pulse oximetry. 22:52 Patient arrived in ED. ea 22:52 Triage completed. ea 22:54 Mohinder Tejada MD is Attending Physician. vanessa 22:58 Notified ED physician of a critical lab result(s). POC Blood sugar was above 500 jp3 Notified primary nurse of point of care results. 22:58 Patient maintains SpO2 saturation greater than 95% on room air. jp3 23:08 Suad Melendez RN is Primary Nurse. ea 23:15 Inserted saline lock: 20 gauge in left forearm, using aseptic technique. Blood ea collected. 23:30 Patient has correct armband on for positive identification. Bed in low position. Call ea light in reach. Side rails up X2. 23:45 XRAY Chest (1 view) In Process Unspecified. EDMS 05/18 00:05 CT Traumagram (Head C Spine CAP wo con) In Process Unspecified. EDMS 00:05 Janeth Talbot MD is Hospitalizing Provider. vanessa 03:13 No provider procedures requiring assistance completed. Patient admitted, IV remains in ea place. Administered Medications: 00:00 Drug: NS 0.9% 1000 ml Route: IV; Rate: 75 ml/hr; Site: right forearm; ea 02:23 Follow up: Response: No adverse reaction; IV Status: Completed infusion ea 00:00 Drug: Insulin Regular Human 10 units {Co-Signature: surinder (Krzysztof Mcknight RN).} Route: IVP; ea Site: left forearm; 01:00 Follow up: Response: No adverse reaction ea 00:00 Drug: Insulin Regular Human 10 units {Co-Signature: surinder (Krzysztof Mcknight RN).} Route: ea Sub-Q; Site: left upper arm; 01:00 Follow up: Response: No adverse reaction ea 00:00 Drug: Xopenex 2.5 mg Route: Inhalation; ea 00:00 Drug: AtroVENT Aerosol 0.5 mg Route: Inhalation; ea 00:00 Drug: Thiamine 100 mg Route: IV; Rate: bolus; Site: left forearm; ea 01:00 Follow up: IV Status: Completed infusion ea 00:00 Drug: Zofran 4 mg Route: IVP; Site: right antecubital; ea 01:00 Follow up: Response: No adverse reaction; Pain is decreased; RASS: Alert and Calm (0) ea 00:02 Drug: Dilaudid 0.5 mg Route: IVP; Site: right antecubital; ea 01:00 Follow up: Response: No adverse reaction ea 00:34 CANCELLED (Duplicate Order): Rocephin - (cefTRIAXone) 1 grams IVPB once over 30 mins; vanessa (mix in 50 mL NS) 01:33 Drug: NS 0.9% 1000 ml Route: IV; Rate: 1 bolus; Site: left forearm; ea 02:32 Follow up: Response: No adverse reaction; IV Status: Completed infusion; IV Intake: ea 1000ml 01:33 Drug: Rocephin 1 grams Route: IV; Rate: per protocol; Site: left forearm; ea 02:00 Follow up: Response: No adverse reaction; IV Status: Completed infusion ea 01:39 Drug: Dilaudid 0.5 mg Route: IVP; Site: left forearm; ea 02:32 Follow up: Response: No adverse reaction; Pain is decreased; RASS: Alert and Calm (0) ea Intake: 02:32 IV: 1000ml; Total: 1000ml. ea Outcome: 00:06 Decision to Hospitalize by Provider. vanessa 00:30 Admitted to Med/surg accompanied by tech, room 408, with chart, Report called to Olga preslsey RN 00:30 Instructed on the need for admit. 03:15 Condition: stable ea 03:37 Patient left the ED. ea Signatures: Dispatcher [employer] Mohinder Fletcher MD MD cha Antunez, Elena, RN RN Everton Hernandez jp3 Krzysztof Mcknight RN [email or web address]
[2019-05-18] MEDS ORDERED: CEFTRIAXONE/SWI 1gm 1 GM/10 ML SYR ONE (01:31)
[2019-05-18] MEDS ORDERED: NA CHLORIDE 0.9% 1,000 ML ONE (01:31)
[2019-05-18] MEDS ORDERED: HYDROMORPHONE HCL 0.5 MG/0.5 ML INJ ONE (01:38)
[2019-05-18] MEDS ORDERED: ALBUTEROL 2.5 MG/3 ML NEB SOL NEB PRN ×2 (01:49→07:24)
[2019-05-18] MEDS ORDERED: ONDANSETRON 4 MG/2 ML VIAL IV PRN (01:49)
[2019-05-18] MEDS ORDERED: IPRATROPIUM BROM 0.5MG/2.5ML NEB SCH (02:00)
[2019-05-18] MEDS ORDERED: ALBUTEROL 2.5 MG/3 ML NEB SOL NEB SCH (02:00)
--- NOTE | 2019-05-18 02:10 | P.HP ---
Patient History Date of Service: 05/18/19 Reason for admission: cough, SOB History of Present Illness: allyn junior is a 53 yoM w/ pmhx of DM, HTN, cirrhosis, HLD, left eye blindness who presents to the ED today w/ SOB and cough/congestion. he states that he has been exposed to personal sick contracts (flu) x 2 months and thus developed a cough. he reports intermittent dependence of tobacco smoking. he states that starting over the last 2 days he has become progressively SOB and difficulty to catch his breath. he reports cough x 2months but that it worsened over the last 2 days which is the reason he presented for medical evaluation. he reports CP w/o radiation, SOB/BEARD/n/v. he denies fever, chills, DANIEL. he reports tobacco use on and off > 10yrs, up to 7 cigarettes daily. he reports history of CAD and need for a CABG but did not receive in 2019. Allergies acetaminophen [From [place]] Allergy (Verified 03/13/18 00:11) Hives/Rash codeine Allergy (Verified 03/12/18 23:24) Hives/Rash hydrocodone [From [place]] Allergy (Verified 03/13/18 00:11) Hives/Rash morphine Allergy (Verified 03/13/18 00:11) Hives/Rash tramadol [From [place]] Adverse Reaction (Verified 03/12/18 23:33) Itching Home Medications: Aspirin 1 tab PO DAILY 01/03/19 Citalopram Hydrobromide [Citalopram HBr] 1 tab PO DAILY 01/03/19 Clopidogrel Bisulfate [Plavix*] 1 tab PO DAILY 01/03/19 Furosemide [Lasix*] 1 tab PO BID 01/03/19 Gabapentin 1,200 mg PO BEDTIME 01/03/19 Gabapentin 1,800 mg PO DAILY 01/03/19 Levetiracetam [Keppra] 2 tab PO DAILY 01/03/19 Simvastatin 40 mg PO DAILY 01/03/19 Spironolactone [Aldactone*] 1 tab PO DAILY 01/03/19 Travoprost (Benzalkonium) [Travatan 0.004% Eye Drop] 1 drop EACH EYE DAILY 01/03 lisinopriL [Prinivil*] 10 mg PO DAILY 01/03/19 - Past Medical/Surgical History Diabetic: Yes -: History CVA -: Liver cirrhosis with history hepatitis A -: CAD -: Diabetes mellitus type 2, insulin dependent -: CAD with prior DE -: Diabetic neuropathy, retinopathy -: CHF -: Hyperlipidemia -: seizures -: Cardiac stents -: left acl repair -: Cholecystectomy Psychosocial/ Personal History: Patient lives at home and is . He has no children. - Family History Mother -: Heart disease, Hypertension - Social History Smoking Status: Current every day smoker Alcohol use: No CD- Drugs: No Caffeine use: Yes Review of Systems General: Weakness Eyes: Vision Change Respiratory: Cough, Shortness of Breath Cardiovascular: Chest Pain, Orthopnea, Paroxysmal Noc. Dyspnea Gastrointestinal: Nausea, Vomiting Neurological: Weakness, Incoordination Physical Examination - Physical Exam General: Alert, In no apparent distress, Oriented x3, Cooperative HEENT: Atraumatic Neck: Supple Respiratory: Clear to auscultation bilaterally, Normal air movement Cardiovascular: Normal pulses, No murmurs, Other (tachycardia), Edema (1+) Capillary refill: <2 Seconds Gastrointestinal: Normal bowel sounds, Soft and benign, Non-distended, No rebound, No guarding Musculoskeletal: Swelling (with 1+ edema) Integumentary: No rashes Neurological: Normal speech, Other (gait not tested) Lymphatics: No axilla or inguinal lymphadenopathy External genitalia: Deferred Rectal: Deferred - Studies Laboratory Data (last 24 hrs) 05/17/19 23:15: Lipase Cancelled 05/17/19 23:15: PT 10.8, INR 0.91 05/17/19 23:15: WBC 7.5 D, Hgb 13.8, Hct 41.9, Plt Count 183 05/17/19 23:15: Sodium 135 L, Potassium 4.3, BUN 43 H, Creatinine 2.96 H D, Glucose 651 H*, Magnesium 2.3, Total Bilirubin 0.3, AST 25, ALT 30, Alkaline Phosphatase 154 H, Lipase 296 Microbiology Data (last 24 hrs): 05/18/19 00:13 Nasopharnyx Influenza Type A Antigen Screen - Final 05/18/19 00:13 Nasopharnyx Influenza Type B Antigen Screen - Final Assessment and Plan - Plan 53yoM admitted w/ acute respiratory distress- multifactorial etiology 2/2 CAD vs COPD duonebs scheduled/prn trend CE obtain a1c, tsh and lipid boarder steam on tele monitor daily weights DM - uncontrolled, BGL > 600- given several rounds of insulin in the ED. monitor FSBG q4, obtain a1c restart on SSIinsulin, DM diet consider DM education cirrhosis - no signs of decompensation trend LFTs tobacco dependence counsoled on smoking cessation duonebs scd/prn Discharge Plan: Home - Advance Directives Does patient have a Living Will: No Does patient have a Durable POA for Healthcare: No
[2019-05-18 04:15] VITALS: BMI 34.0
[2019-05-18] MEDS ORDERED: INSULIN -REGULAR HUMAN 50 UNIT/0.5 ML ML SQ SCH (05:00)
[2019-05-18 05:12] LABS: Absolute Lymphocytes (CBC) 2.3 K/uL (0.7-4.9); Basophils % 0.8 % (0-1.3); Hematocrit 37.5 % (39.6-49.0); Lymphocytes % 29.6 % (15.3-44.8); MPV 11.5 fL (7.6-11.3); RBC Red Blood Cell Count 4.12 M/uL (4.33-5.43)
[2019-05-18 05:18] LABS: Protime INR 0.93
[2019-05-18 05:49] LABS: ALT/SGPT 26 U/L (12-78); AST/SGOT 22 U/L (15-37); Albumin 2.3 g/dL (3.4-5.0); Alkaline Phosphatase 144 U/L (45-117); BUN Blood Urea Nitrogen 42 mg/dL (7-18); Bicarbonate 22 mmol/L (21-32); Bilirubin Total 0.2 mg/dL (0.2-1.0); HDL Cholesterol 36 mg/dL (40-60); LDL Cholesterol, Calculated ND (<130); Magnesium 2.3 mg/dL (1.8-2.4); Potassium 4.7 mmol/L (3.5-5.1); Protein, Total 6.3 g/dL (6.4-8.2); Sodium Level 137 mmol/L (136-145)
[2019-05-18 05:50] LABS: Glucose Level 550 mg/dL (74-106)
[2019-05-18 06:01] LABS: LDL, Direct 152 mg/dL (100-129)
[2019-05-18] MEDS ORDERED: IPRATROPIUM BROM 0.5MG/2.5ML NEB PRN (07:25)
[2019-05-18 07:54] LABS: CKMB Creatine Kinase MB 8.4 ng/mL (0.3-3.6); Troponin I < 0.02 ng/mL (0.0-0.045)
--- NOTE | 2019-05-18 07:57 | RAD REPORT ---
EXAM DESCRIPTION: Noah Single View05/17/2019 11:47 pm CLINICAL HISTORY: Cough COMPARISON: May 13, 2019 FINDINGS: The lungs appear clear of acute infiltrate. The heart is normal size IMPRESSION: No acute abnormalities displayed
[2019-05-18] MEDS: HOME MED 1 EA UNK (Travoprost (Benzalkonium) [Travatan 0.004% Eye Drop] 1 DROP) EACH EYE SCH (09:00)
[2019-05-18] MEDS ORDERED: ASPIRIN 325 MG TAB PO SCH (09:00)
--- NOTE | 2019-05-18 09:04 | RAD REPORT ---
EXAM DESCRIPTION: Noah Pa And Lat (2 Views)05/18/2019 8:10 am CLINICAL HISTORY: Cough COMPARISON: May 17, 2019 FINDINGS: Mild left basilar opacity best seen on the lateral view The right lung appears clear The heart is normal size IMPRESSION: Mild left basilar opacity likely a mild pneumonia
[2019-05-18] MEDS: lisinopriL 10 MG TAB PO SCH (09:26)
[2019-05-18] MEDS: GABAPENTIN 300 MG CAP PO SCH (09:26)
[2019-05-18] MEDS: CLOPIDOGREL 75 MG TABLET PO SCH (09:27)
[2019-05-18] MEDS: FUROSEMIDE 40 MG TABLET PO SCH ×2 (09:27→16:23)
[2019-05-18] MEDS: CITALOPRAM 10 MG TABLET PO SCH (09:27)
[2019-05-18] MEDS: levETIRAcetam 500 MG TAB PO SCH (09:27)
[2019-05-18] MEDS: SPIRONOLACTONE 25 MG TABLET PO SCH (09:27)
[2019-05-18] MEDS: INSULIN -REGULAR HUMAN 50 UNIT/0.5 ML ML SQ SCH ×4 (09:37→21:13)
[2019-05-18 10:28] VITALS: O2SAT 96
--- NOTE | 2019-05-18 11:26 | EKG ---
Test Date: 2019-05-17 Test Time: 22:57:22 Horse Trekking Guide: CHRISSY MEASUREMENT RESULTS: Intervals: Rate: 106 WA: 146 QRSD: 138 QT: 380 QTc: 504 Charlo: P: 39 WA: 146 QRS: 123 T: 5 INTERPRETIVE STATEMENTS: Sinus tachycardia Right bundle branch block Left posterior fascicular block Bifascicular block Abnormal ECG Compared to ECG 05/13/2019 21:24:02 Sinus rhythm no longer present Myocardial infarct finding no longer present Bifascicular block still present Electronically Signed On 05-18-19 11:23:54 HELPDESK ADMINISTRATOR by Zion Colon
[2019-05-18] MEDS: TRAMADOL HCL 50 MG TAB PO PRN ×2 (11:29→21:14)
[2019-05-18 11:32] LABS: Barbiturates NEGATIVE (NEGATIVE); Benzodiazepines NEGATIVE (NEGATIVE); Cocaine NEGATIVE (NEGATIVE); METHAMPHETAM NEGATIVE (NEGATIVE); Methadone NEGATIVE (NEGATIVE); Opiates NEGATIVE (NEGATIVE); Phencyclidine NEGATIVE (NEGATIVE); THC Cannibis NEGATIVE (NEGATIVE)
--- NOTE | 2019-05-18 11:41 | RAD REPORT ---
EXAM DESCRIPTION: CT - Head C Spine Cap Wo Con - 05/18/2019 6:03 am CLINICAL HISTORY: PAIN COMPARISON: 01/26/2019. 04/03/2019 TECHNIQUE: Axial CT of the head obtained from the skull apex to the skull base without contrast. Axi al CT images of the cervical spine obtained from the skull base through the thoracic inlet. Sagittal and coronal reformatted images available. CT of the chest, abdomen, and pelvis obtained without contr ast. Suboptimal evaluation of the solid organs, vasculature, and soft tissues due to lack of IV contr ast. FINDINGS: CT head: No acute intracranial hemorrhage identified. No mass, mass effect, shift of the midline, abnormal ext ra-axial fluid collection or CT evidence of acute ischemic change identified. The ventricular system is unremarkable. No acute abnormalities of the supratentorial white matter, basal ganglia, cerebell um, or brainstem. The visualized paranasal sinuses and the mastoids are clear. Atherosclerotic calcification of the int racranial internal carotid arteries. No skull fracture identified. Visualized orbits and globes a re unremarkable. Cervical CT: Feeding of the cervical lordosis may be secondary to patient positioning. The atlantoaxial, atlanto dental, and occipitoatlantal intervals are preserved. No fracture identified. Vertebral body height preserved. Prevertebral soft tissues are unremarkable. [id number] multilevel loss of intervertebral disc height with endplate spondylosis, facet arthr opathy, and uncovertebral spurring. Visualized skull base is intact. No fracture of the visualized facial bones. Visualized mastoid air c ells and paranasal sinuses are well aerated. Visualized thyroid is unremarkable. No cervical lymphadenopathy. No pneumothorax in the visualized lung apices. Chest: Thyroid: No abnormalities of the visualized thyroid. Great Vessels: Great vessels have normal anatomic configuration. Thoracic Aorta: Atherosclerotic calcification. Pulmonary arteries: The main pulmonary artery is not dilated. Heart: Coronary artery calcified atherosclerotic plaque. No cardiomegaly or significant pericardial e ffusion. Lymph Nodes: No enlarged mediastinal lymph nodes identified. Esophagus: No abnormalities of the esophagus identified Other: No additional findings. Lungs: No confluent airspace consolidation. Right lower lobe calcified granulomas. Scattered areas of subsegmental atelectasis. Respiratory motion artifact. Pleura: No pleural effusion or pneumothorax. Trachea/Airways: Acute abnormality of the trachea. Abdomen: Liver: The liver has normal size and density. Gallbladder: Prior cholecystectomy. Spleen, Pancreas, and Adrenal Glands: The spleen, pancreas, and adrenal glands are unremarkable. Kidneys: The kidneys have normal size and contour without evidence of solid mass or hydronephrosis. Vasculature: Aortoiliac atherosclerosis. IVC is unremarkable. Stomach: The stomach and duodenum have normal course. Other: No free intraperitoneal air. No free fluid or lymphadenopathy. Pelvis: Bladder: Urinary bladder is unremarkable. Bowel: No dilated loops of large or small bowel. Scattered diverticula of the colon. Appendix: Normal appendix. Pelvis: Prostate is not enlarged. Bones: Altered level degenerative change throughout the spine. No acute fractures. IMPRESSION: 1. No acute intracranial abnormality. 2. No acute fracture or subluxation of the cervical spine. 3. No acute traumatic, inflammatory, or obstructive process identified in the chest, abdomen, or pe lvis. This exam was performed according to our departmental dose-optimization program, which includes autom ated exposure control, adjustment of the mA and/or kV according to patient size and/or use of iterati ve reconstruction technique. Electronically signed by: Bautista Bull 05/18/2019 12:47 AM WIRE COATING MACHINE OPERATOR Due to temporary technical issues with the PACS/Fluency reporting system, reports are being signed by the in house radiologist as a courtesy to ensure prompt reporting. The interpreting radiologist is f ully responsible for the content of the report.
[2019-05-18 11:42] LABS: Urine Appearance CLEAR; Urine Bilirubin NEGATIVE (NEG); Urine Blood TRACE (NEG); Urine Color YELLOW; Urine Glucose 3+ (NEG); Urine Microscopic Reflex ORDER UMIC; Urine Protein 3+ (NEG); Urine Urobilinogen 0.2 mg/dL (0.2-1.0)
[2019-05-18 12:07] LABS: Urine Bacteria NONE SEEN /HPF (NONE SEEN); Urine Culture Reflex Order NOT NEEDED
[2019-05-18] MEDS ORDERED: GLUCAGON 1 MG/VIAL IM PRN (15:26)
[2019-05-18] MEDS ORDERED: D50W 25 GM/50 ML SYRINGE/VIAL IV PRN (15:26)
--- NOTE | 2019-05-18 15:30 | P.PN ---
Subjective Date of Service: 05/18/19 Primary Care Provider: Unknown Chief Complaint: cough, SOB Subjective: Improving Physical Examination - Vital Signs Temperature: 97.5 F Blood Pressure: 144/78 Pulse: 101 Respirations: 17 Pulse Ox (%): 97 - Physical Exam General: Alert, In no apparent distress, Oriented x3, Cooperative HEENT: Atraumatic Neck: Supple Respiratory: Clear to auscultation bilaterally, Normal air movement Cardiovascular: Normal pulses, Regular rate/rhythm Gastrointestinal: Normal bowel sounds, Soft and benign, Non-distended, No tenderness, No masses, No rebound, No guarding Musculoskeletal: No erythema, No tenderness, No warmth Integumentary: No tenderness/swelling, No erythema, No warmth, No cyanosis Neurological: Normal speech, Normal strength at 5/5 x4 extr, Normal tone, Normal affect - Studies Laboratory Data (last 24 hrs) 05/17/19 23:15: Lipase Cancelled 05/17/19 23:15: PT 10.8, INR 0.91 05/17/19 23:15: WBC 7.5 D, Hgb 13.8, Hct 41.9, Plt Count 183 05/17/19 23:15: Sodium 135 L, Potassium 4.3, BUN 43 H, Creatinine 2.96 H D, Glucose 651 H*, Magnesium 2.3, Total Bilirubin 0.3, AST 25, ALT 30, Alkaline Phosphatase 154 H, Lipase 296 Microbiology Data (last 24 hrs): 05/18/19 00:13 Nasopharnyx Influenza Type A Antigen Screen - Final 05/18/19 00:13 Nasopharnyx Influenza Type B Antigen Screen - Final Medications List Reviewed: Yes Assessment & Plan Discharge Plan: Home Plan to discharge in: 24 Hours Physician Review Additional Text: Impression: Shortness of breath secondary to Left lower lobe pneumonia Diabetes mellitus type 2 with hyperglycemia Hypertension Liver cirrhosis Chronic pain Hyperlipidemia CAD with prior CABG Plan: Will continue with IV antibiotic therapy. Continue monitor closely. Wean off oxygen. Blood sugar still significantly elevated. Reconciliation beds indicates no medications for diabetes. A1c 13.2. Will start Lantus 15 units subcu twice daily. Will try to get blood sugar better control prior to discharge. Anticipate discharge in the next 24 hr. Home medications restarted. Will need to verify home medications as well. Ambulate with physical therapy. Time Spent Managing Pts Care (In Minutes): 55
[2019-05-18] MEDS ORDERED: CEFTRIAXONE/SWI 1gm 1 GM/10 ML SYR IVP SCH (17:00)
[2019-05-18] MEDS: INSULIN GLARGINE 100 UNITS/ML SQ SCH ×2 (17:03→21:00)
[2019-05-18] MEDS ORDERED: ATORVASTATIN 20 MG TAB PO SCH (21:00)
[2019-05-18] MEDS ORDERED: GABAPENTIN 400 MG CAP PO SCH (21:00)
[2019-05-18] MEDS: CEFTRIAXONE/SWI 1gm 1 GM/10 ML SYR IVP SCH (21:13)
[2019-05-18] MEDS: AZITHROMYCIN 250 MG TAB PO SCH (21:14)
[2019-05-19] MEDS: INSULIN -REGULAR HUMAN 50 UNIT/0.5 ML ML SQ SCH ×3 (00:48→09:26)
[2019-05-19 04:30] LABS: Absolute Lymphocytes (CBC) 2.1 K/uL (0.7-4.9); Hematocrit 35.6 % (39.6-49.0); MPV 11.5 fL (7.6-11.3)
[2019-05-19 04:37] LABS: Magnesium 2.3 mg/dL (1.8-2.4); Potassium 4.5 mmol/L (3.5-5.1)
[2019-05-19] MEDS: TRAMADOL HCL 50 MG TAB PO PRN (05:22)
[2019-05-19] MEDS: HOME MED 1 EA UNK (Travoprost (Benzalkonium) [Travatan 0.004% Eye Drop] 1 DROP) EACH EYE SCH (07:42)
[2019-05-19] MEDS ORDERED: INSULIN GLARGINE 100 UNITS/ML SQ SCH (09:00)
[2019-05-19] MEDS: CLOPIDOGREL 75 MG TABLET PO SCH (09:23)
[2019-05-19] MEDS: FUROSEMIDE 40 MG TABLET PO SCH (09:23)
[2019-05-19] MEDS: SPIRONOLACTONE 25 MG TABLET PO SCH (09:24)
[2019-05-19] MEDS: GABAPENTIN 300 MG CAP PO SCH (09:24)
[2019-05-19] MEDS: CEFTRIAXONE/SWI 1gm 1 GM/10 ML SYR IVP SCH (09:24)
[2019-05-19] MEDS: AZITHROMYCIN 250 MG TAB PO SCH (09:24)
[2019-05-19] MEDS: lisinopriL 10 MG TAB PO SCH (09:24)
[2019-05-19] MEDS: levETIRAcetam 500 MG TAB PO SCH (09:25)
[2019-05-19] MEDS: CITALOPRAM 10 MG TABLET PO SCH (09:25)
--- NOTE | 2019-05-19 11:16 | P.DS ---
Admission Date: 05/18/19 Discharge Date: 05/19/19 Primary Care Provider: Unknown Disposition: ROUTINE DISCHARGE Discharge Condition: GOOD Reason for Admission: cough, SOB Consultations: none Procedures: Ct Scan: FINDINGS: CT head: No acute intracranial hemorrhage identified. No mass, mass effect, shift of the midline, abnormal extra-axial fluid collection or CT evidence of acute ischemic change identified. The ventricular system is unremarkable. No acute abnormalities of the supratentorial white matter, basal ganglia, cerebellum, or brainstem. The visualized paranasal sinuses and the mastoids are clear. Atherosclerotic calcification of the intracranial internal carotid arteries. No skull fracture identified. Visualized orbits and globes are unremarkable. Cervical CT: Feeding of the cervical lordosis may be secondary to patient positioning. The atlantoaxial, atlantodental, and occipitoatlantal intervals are preserved. No fracture identified. Vertebral body height preserved. Prevertebral soft tissues are unremarkable. [id number] multilevel loss of intervertebral disc height with endplate spondylosis, facet arthropathy, and uncovertebral spurring. Visualized skull base is intact. No fracture of the visualized facial bones. Visualized mastoid air cells and paranasal sinuses are well aerated. Visualized thyroid is unremarkable. No cervical lymphadenopathy. No pneumothorax in the visualized lung apices. Chest: Thyroid: No abnormalities of the visualized thyroid. Great Vessels: Great vessels have normal anatomic configuration. Thoracic Aorta: Atherosclerotic calcification. Pulmonary arteries: The main pulmonary artery is not dilated. Heart: Coronary artery calcified atherosclerotic plaque. No cardiomegaly or significant pericardial effusion. Lymph Nodes: No enlarged mediastinal lymph nodes identified. Esophagus: No abnormalities of the esophagus identified Other: No additional findings. Lungs: No confluent airspace consolidation. Right lower lobe calcified granulomas. Scattered areas of subsegmental atelectasis. Respiratory motion artifact. Pleura: No pleural effusion or pneumothorax. Trachea/Airways: Acute abnormality of the trachea. Abdomen: Liver: The liver has normal size and density. Gallbladder: Prior cholecystectomy. Spleen, Pancreas, and Adrenal Glands: The spleen, pancreas, and adrenal glands are unremarkable. Kidneys: The kidneys have normal size and contour without evidence of solid mass or hydronephrosis. Vasculature: Aortoiliac atherosclerosis. IVC is unremarkable. Stomach: The stomach and duodenum have normal course. Other: No free intraperitoneal air. No free fluid or lymphadenopathy. Pelvis: Bladder: Urinary bladder is unremarkable. Bowel: No dilated loops of large or small bowel. Scattered diverticula of the colon. Appendix: Normal appendix. Pelvis: Prostate is not enlarged. Bones: Altered level degenerative change throughout the spine. No acute fractures. IMPRESSION: 1. No acute intracranial abnormality. 2. No acute fracture or subluxation of the cervical spine. 3. No acute traumatic, inflammatory, or obstructive process identified in the chest, abdomen, or pelvis. Follow up CXR: COMPARISON: May 17, 2019 FINDINGS: Mild left basilar opacity best seen on the lateral view The right lung appears clear The heart is normal size IMPRESSION: Mild left basilar opacity likely a mild pneumonia Medical Problem List: Shortness of breath secondary to Left lower lobe pneumonia Diabetes mellitus type 2 with hyperglycemia Hypertension Liver cirrhosis Chronic pain Hyperlipidemia CAD with prior CABG Chronic diastolic CHF Seizure disorder Brief History of Present Illness: 53-year-old male presented to the emergency room with cough and shortness of breath. Patient found to have left lower lobe pneumonia. Patient admitted for further evaluation and treatment. Hospital Course: Patient presented with shortness of breath and cough. Patient found to have left lower lobe pneumonia. Patient was placed on antibiotic therapy. Patient has shown improvement. X-ray also shows improvement. At discharge he is without significant shortness of breath. Room-air saturations within normal range. At discharge patient will continue with Augmentin 500 mg twice daily for 7 days. Recommend recheck chest x-ray in 2-4 weeks to monitor resolution. Patient may follow up with his PCP to further monitor and address. Patient with diabetes mellitus type 2 with noted hyperglycemia. A1c above 11. Patient was started on insulin therapy for better control. At discharge he will continue with Lantus 20 units subcu twice daily. Recommend to recheck blood sugars at least twice daily. Recommend to maintain blood sugars less 140 fasting and less than 200 after meals. He may increase his Lantus by 1-2 units for better control if blood sugar remains above 250. Further adjustment in his medication can be done by his PCP. Patient with hypertension. This has remained stable. At discharge he will continue with his medication lisinopril 10 mg daily. Recommend to maintain blood pressures less 150/80. Further adjustment can be done by his PCP. Patient with liver cirrhosis. This appears stable. At discharge patient will continue with a 1500 cc per day fluid restriction and low-salt diet. At discharge she will continue with his diuretic therapy including Diamox ER 500 mg twice daily, Aldactone 25 mg daily, and Lasix 40 mg 1 pill twice daily. Recommend to monitor his weight daily. Recommend follow up with GI as an outpatient to further monitor and address. Patient with chronic pain. At discharge he will continue with his medication gabapentin 1800 mg daily and 1200 mg at bedtime. Recommend follow up with pain management to further monitor and address. Patient with history of CAD, chronic diastolic CHF and prior CABG and hyperlipidemia. At discharge he will continue with his current medication Zocor 40 mg daily and Plavix 75 mg daily. At discharge patient will continue with a 1500 cc per day fluid restriction. Patient will continue with his diuretic therapy as recommended above. Recommend follow up with cardiology as directed. Patient with depression and anxiety. At discharge he will continue with his medication Lexapro 20 mg daily. Patient with history of seizure disorder. At discharge he will continue with Keppra 500 mg daily. Patient with chronic renal disease stage 4. This remained stable. At discharge will recommend to follow up with nephrology in 1-2 weeks to monitors progress. Recommend no further use of nonsteroidal anti-inflammatories. Future medications will need to be renally dose. Vital Signs/Physical Exam: Temp Pulse Resp BP Pulse Ox 97.1 F 66 16 116/56 L 96 05/19/19 08:00 05/19/19 09:24 05/19/19 08:00 05/19/19 09:24 05/19/19 08:00 General: Alert, In no apparent distress, Oriented x3, Cooperative HEENT: Atraumatic Neck: Supple Respiratory: Clear to auscultation bilaterally, Normal air movement Cardiovascular: Normal pulses, Regular rate/rhythm Gastrointestinal: Normal bowel sounds, Soft and benign, Non-distended, No tenderness, No masses, No rebound, No guarding Musculoskeletal: No erythema, No tenderness, No warmth Integumentary: No tenderness/swelling, No erythema, No warmth, No cyanosis Neurological: Normal speech, Normal strength at 5/5 x4 extr, Normal tone, Normal affect Laboratory Data at Discharge: WBC 7.0 K/uL (4.3-10.9) 05/19/19 04:11 Hgb 12.0 g/dL (13.6-17.9) L 05/19/19 04:11 Hct 35.6 % (39.6-49.0) L 05/19/19 04:11 Plt Count 166 K/uL (152-406) 05/19/19 04:11 PT 11.0 SECONDS (9.5-12.5) 05/18/19 04:58 INR 0.93 05/18/19 04:58 Sodium 138 mmol/L (136-145) 05/19/19 04:11 Potassium 4.5 mmol/L (3.5-5.1) 05/19/19 04:11 BUN 47 mg/dL (7-18) H 05/19/19 04:11 Creatinine 2.72 mg/dL (0.55-1.3) H 05/19/19 04:11 Glucose 371 mg/dL (74-106) H 05/19/19 04:11 Magnesium 2.3 mg/dL (1.8-2.4) 05/19/19 04:11 Total Bilirubin 0.2 mg/dL (0.2-1.0) 05/18/19 04:55 AST 22 U/L (15-37) 05/18/19 04:55 ALT 26 U/L (12-78) 05/18/19 04:55 Alkaline Phosphatase 144 U/L (45-117) H 05/18/19 04:55 Troponin I < 0.02 ng/mL (0.0-0.045) 05/18/19 07:27 Triglycerides 704 mg/dL (<150) H 05/18/19 04:55 Cholesterol 251 mg/dL (<200) H 05/18/19 04:55 LDL Cholesterol Direct 152 mg/dL (100-129) H 05/18/19 04:55 HDL Cholesterol 36 mg/dL (40-60) L 05/18/19 04:55 Cholesterol/HDL Ratio 6.97 05/18/19 04:55 Lipase 296 U/L (73-393) 05/17/19 23:15 Home Medications: Citalopram Hydrobromide [Citalopram HBr] 1 tab PO DAILY 01/03/19 Clopidogrel Bisulfate [Plavix*] 1 tab PO DAILY 01/03/19 Furosemide [Lasix*] 1 tab PO BID 01/03/19 Gabapentin 1,200 mg PO BEDTIME 01/03/19 Gabapentin 1,800 mg PO DAILY 01/03/19 Levetiracetam [Keppra] 2 tab PO DAILY 01/03/19 Brimonidine Tartrate/Timolol [Combigan 0.2%-0.5% Eye Drops] 1 drops EACH EYE BID 05/18/19 Brinzolamide [Azopt] 1 drop EACH EYE BID 05/18/19 Lisinopril [Zestril] 1 tab PO DAILY 05/18/19 Ondansetron HCl 1 tab PO BID PRN 05/18/19 Simvastatin 1 tab PO DAILY 05/18/19 Spironolactone 1 tab PO BEDTIME 05/18/19 Travoprost (Benzalkonium) [Travatan 0.004% Eye Drop] 1 drop EACH EYE BID acetaZOLAMIDE [Acetazolamide ER] 1 tab PO BID 05/18/19 Amoxicillin/Potassium Clav [Augmentin 500-125 Tablet] 1 each PO BID #14 tablet 05/19/19 Insulin Glargine Human [Lantus*] 20 units SQ BID #1 bottle 05/19/19 New Medications: Amoxicillin/Potassium Clav [Augmentin 500-125 Tablet] 1 each PO BID #14 tablet Insulin Glargine Human [Lantus*] 20 units SQ BID #1 bottle Patient Discharge Instructions: 1. Patient will be discharged home. 2. Patient presented with shortness of breath and cough. Patient found to have left lower lobe pneumonia. Patient was placed on antibiotic therapy. Patient has shown improvement. X-ray also shows improvement. At discharge he is without significant shortness of breath. Room-air saturations within normal range. At discharge patient will continue with Augmentin 500 mg twice daily for 7 days. Recommend recheck chest x-ray in 2-4 weeks to monitor resolution. Patient may follow up with his PCP to further monitor and address. 3. Patient with diabetes mellitus type 2 with noted hyperglycemia. A1c above 11. Patient was started on insulin therapy for better control. At discharge he will continue with Lantus 20 units subcu twice daily. Recommend to recheck blood sugars at least twice daily. Recommend to maintain blood sugars less 140 fasting and less than 200 after meals. He may increase his Lantus by 1-2 units for better control if blood sugar remains above 250. Further adjustment in his medication can be done by his PCP. 4. Patient with hypertension. This has remained stable. At discharge he will continue with his medication lisinopril 10 mg daily. Recommend to maintain blood pressures less 150/80. Further adjustment can be done by his PCP. 5. Patient with liver cirrhosis. This appears stable. At discharge patient will continue with a 1500 cc per day fluid restriction and low-salt diet. At discharge she will continue with his diuretic therapy including Diamox ER 500 mg twice daily, Aldactone 25 mg daily, and Lasix 40 mg 1 pill twice daily. Recommend to monitor his weight daily. Recommend follow up with GI as an outpatient to further monitor and address. 6. Patient with chronic pain. At discharge he will continue with his medication gabapentin 1800 mg daily and 1200 mg at bedtime. Recommend follow up with pain management to further monitor and address. 7. Patient with history of CAD, chronic diastolic CHF and prior CABG and hyperlipidemia. At discharge he will continue with his current medication Zocor 40 mg daily and Plavix 75 mg daily. At discharge patient will continue with a 1500 cc per day fluid restriction. Patient will continue with his diuretic therapy as recommended above. Recommend follow up with cardiology as directed. 8. Patient with depression and anxiety. At discharge he will continue with his medication Lexapro 20 mg daily. 9. Patient with history of seizure disorder. At discharge he will continue with Keppra 500 mg daily. 10. Patient with chronic renal disease stage 4. This remained stable. At discharge will recommend to follow up with nephrology in 1-2 weeks to monitors progress. Recommend no further use of nonsteroidal anti-inflammatories. Future medications will need to be renally dose. Diet: ADA Activity: Fall precautions Time spent managing pt's care (in minutes): 55
[2019-05-19] MEDS ORDERED: INSULIN -REGULAR HUMAN 50 UNIT/0.5 ML ML SQ SCH (11:30)
--- NOTE | 2019-05-19 11:35 | P.CNS ---
Date of Consult: 05/19/19 Asked to the see the patient by Dr. Prince. He has a history of dm-2 for 23 years, Stage 4 ckd(seen by Dr. Saunders). He has mulitvessel CAD. Cath was done by Dr. Colon last dec. He normally see's Dr. Oquendo. He did not have insurance at the time. He just recently gotten it. The patient came in with possible pneumonia. He has no history of lung disease. He had an A1c of 13. Has been in the double digits on all the a1c in the hospital. He has complaints of weakness and swelling in the legs. He has also been having a cough for 2 weeks. PE. [employer]- AAO X3 HEENT PERRLA, EOM +ve, -ve LAD CVS, S1,S2, RRR, no abnormal sounds RS LCTA LE 1+ Pedal edema to the knees. a/p 1. CAD. The patient can follow up with Dr. Oquendo. Who can refer him to a CT surgeon. 2. DM-2 not well controlled. He was started on lantus. However would like to start him on glp1, and a sglt2. This will help with cardiac mortality 3. ckd stage 4. He has been progressively worsening Will need to refer him back to Dr. Saunders 4. Non compliance. Though this may be due to lack of insurance. 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 A bit rough around the edges. However he and his are realistic. The do understand the severity of his illness. Will try to create a professional relationship with
[2019-05-19 12:06] VITALS: BP 104/61; TEMP 96.9
[2019-05-19] MEDS ORDERED: LOPERAMIDE HCL 2 MG CAPSULE PO STA (12:16)
== END 2019-05-19 12:45 | disposition home or self-care (01) ==
LOC: ER 22:45 → ERHOLD 05-18 00:29 → INTOOBSV 05-18 00:29 → 4TH 05-18 02:32
PROVIDERS: ADMIT Internal Medicine; ATTEND Internal Medicine
DX: J18.9 Pneumonia, unspecified organism (principal); R06.03 Acute respiratory distress; K74.60 Unspecified cirrhosis of liver; G89.29 Other chronic pain; E78.5 Hyperlipidemia, unspecified; I25.10 Atherosclerotic heart disease of native coronary artery without angina pectoris; Z95.1 Presence of aortocoronary bypass graft; G40.909 Epilepsy, unspecified, not intractable, without status epilepticus; I13.0 Hypertensive heart and chronic kidney disease with heart failure and stage 1 through stage 4 chronic kidney disease, or unspecified chronic kidney disease; E11.22 Type 2 diabetes mellitus with diabetic chronic kidney disease; N18.4 Chronic kidney disease, stage 4 (severe); I50.32 Chronic diastolic (congestive) heart failure
CPT/HCPCS: 96365; 96367; 96361; 93005; 87040 ×2; 87088; 85025 ×3; 80048 ×2; 36415 ×2; 80320; 82140; 83721; 83735 ×3; 85610 ×2; 80061; 82947 ×10; 80076; 80307 ×8; 84443; 83036; 84484 ×2; 82553; 83690; 80053; 84145; 83880; 87804 ×2; 70450; 71250; 72125; 71045; 71046; 92610; 97112; 97116 ×2; 97161; 94640; 94760 ×2; 96375; 96372; 99285; J3411; J1170 ×2; J0696 ×3; J7030 ×2; J2405; G0378 ×3; 81003; 81015; 87086; J1815

== ENCOUNTER 2019-05-29 11:58 | Emergency (ER) | payer BC ==
--- OUTSIDE RECORDS SUMMARY | 2019-05-29 12:02 | XMS REPORT ---
:1965 [facility] Address [address] [place] [address] Care Team Providers Name Role Phone BASHIR [...] (BEAKER) (test 119 mg/dL 70-110 TESTED AT [facility] [address] [place] [address] hgce=1094) [facility] [address] BASIC METABOLIC [id number] 06:16:00 Test Item Value Reference Range Comments SODIUM (BEAKER) (test 139 meq/L 136-145 jega=450) POTASSIUM (BEAKER) (test 4.5 meq/L 3.5-5.1 pjnu=428) CHLORIDE (BEAKER) (test 109 meq/L 98-107 hccy=797) CO2 (BEAKER) (test 23 meq/L 22-29 pjnd=426) BLOOD UREA NITROGEN 30 mg/dL 7-21 (BEAKER) (test qhcd=733) CREATININE (BEAKER) (test 1.87 mg/dL 0.57-1.25 gsft=373) GLUCOSE RANDOM (BEAKER) 219 mg/dL 70-105 (test wngw=757) CALCIUM (BEAKER) (test 8.9 mg/dL 8.4-10.2 jqmn=149) EGFR (BEAKER) (test 38 mL/min/1.73 sq m ESTIMATED GFR IS NOT qyqb=4123) ACCURATE CREATININE CLEARANCE IN PREDICTING GLOMERULAR FILTRATION RATE. ESTIMATED GFR IS NOT APPLICABLE FOR DIALYSIS PATIENTS. CBC W/PLT COUNT & AUTO [id number] 05:42:00 Test Item Value Reference Range Comments WHITE BLOOD CELL COUNT (BEAKER) (test fcwa=934) 4.1 K/ L 3.5-10.5 RED BLOOD CELL COUNT (BEAKER) (test awzg=529) 3.72 M/ L 4.63-6.08 HEMOGLOBIN (BEAKER) (test mibh=457) 11.6 GM/DL 13.7-17.5 HEMATOCRIT (BEAKER) (test hipk=387) 33.6 % 40.1-51.0 MEAN CORPUSCULAR VOLUME (BEAKER) (test fjrb=749) 90.3 fL 79.0-92.2 MEAN CORPUSCULAR HEMOGLOBIN (BEAKER) (test 31.2 pg 25.7-32.2 fsfl=676) MEAN CORPUSCULAR HEMOGLOBIN CONC (BEAKER) (test 34.5 GM/DL 32.3-36.5 rdwr=788) RED CELL DISTRIBUTION WIDTH (BEAKER) (test 13.7 % 11.6-14.4 bpvr=137) PLATELET COUNT (BEAKER) (test moxv=494) 170 K/CU MM 150-450 MEAN PLATELET VOLUME (BEAKER) (test tcpe=947) 11.8 fL 9.4-12.4 NUCLEATED RED BLOOD CELLS (BEAKER) (test 0 /100 WBC 0-0 tdgi=274) NEUTROPHILS RELATIVE PERCENT (BEAKER) (test 53 % fplx=899) LYMPHOCYTES RELATIVE PERCENT (BEAKER) (test 32 % btdb=565) MONOCYTES RELATIVE PERCENT (BEAKER) (test 7 % jceo=753) EOSINOPHILS RELATIVE PERCENT (BEAKER) (test 6 % avav=096) BASOPHILS RELATIVE PERCENT (BEAKER) (test 1 % xdlf=375) NEUTROPHILS ABSOLUTE COUNT (BEAKER) (test 2.17 K/ L 1.78-5.38 vwqv=202) LYMPHOCYTES ABSOLUTE COUNT (BEAKER) (test 1.31 K/ L 1.32-3.57 mhxn=335) MONOCYTES ABSOLUTE COUNT (BEAKER) (test 0.29 K/ L 0.30-0.82 zcnb=901) EOSINOPHILS ABSOLUTE COUNT (BEAKER) (test 0.26 K/ L 0.04-0.54 guzf=090) BASOPHILS ABSOLUTE COUNT (BEAKER) (test 0.03 K/ L 0.01-0.08 wlyn=188) IMMATURE GRANULOCYTES-RELATIVE PERCENT (BEAKER) 1 % 0-1 (test iaig=2677) POCT-GLUCOSE [id number] 20:34:00 Test Item Value Reference Range Comments POC-GLUCOSE METER (BEAKER) 205 mg/dL 70-110 TESTED AT [address] (test fcvc=1152) [facility] [address] [address], CHEST, WITHOUT [id number] 18:24:00FINAL REPORT TECHNIQUE: CT scan of the [...] no CT follow-up is necessary. Signed: Amrik Sierar Verified Date/Time: 01/10/2019 18:24:57 Reading Location: [facility] C013Y CT Body Reading Room POCT-GLUCOSE [id number] 17:31 :00 Test Item Value Reference Range Comments POC-GLUCOSE METER (BEAKER) 183 mg/dL 70-110 TESTED AT [address] (test izfi=7100) [facility] [address] CT, BRAIN, WITHOUT [id number] 14:47:00FINAL REPORT CT, BRAIN, WITHOUT CONTRAST INDICATION: [...] Lubna Lr MDReport Verified Date/Time: 01/10/2019 14:47:25 -[id number] 11:36:00 Test Item Value Reference Range Comments D-DIMER QUANTITATIVE (BEAKER) (test ncjr=240) 2.14 MG/L FEU <0.50 Intended Use: The [...] within 95-100% range.RAD, CHEST, 1 VIEW, NON [id number] 08:17:00Reason for exam:->chest painShould this be performed [...] MDReport Verified Date/Time: 01/10/2019 08:17:19 Reading Location: [facility] B1 C013X Ortho Consult Reading Room TROPONIN [id number] 07:02:00 Test Item Value Reference Range Comments TROPONIN I (BEAKER) (test qvlx=863) 0.02 ng/mL 0.00-0.03 Troponin I (TnI) levels [...] NATRIURETIC PEPTIDE (BEAKER) (test 130 pg/mL 0-100 uofq=931) BASIC METABOLIC [id number] 06:51:00 Test Item Value Reference Range Comments SODIUM (BEAKER) (test 137 meq/L 136-145 dybo=334) POTASSIUM (BEAKER) (test 4.3 meq/L 3.5-5.1 rhoz=199) CHLORIDE (BEAKER) (test 108 meq/L 98-107 yaaa=708) CO2 (BEAKER) (test 21 meq/L 22-29 ceto=274) BLOOD UREA NITROGEN 34 mg/dL 7-21 (BEAKER) (test uzbq=928) CREATININE (BEAKER) (test 2.00 mg/dL 0.57-1.25 mlau=692) GLUCOSE RANDOM (BEAKER) 169 mg/dL 70-105 (test jder=537) CALCIUM (BEAKER) (test 8.7 mg/dL 8.4-10.2 lhan=109) EGFR (BEAKER) (test 35 mL/min/1.73 sq m ESTIMATED GFR IS NOT egua=4788) ACCURATE CREATININE CLEARANCE IN PREDICTING GLOMERULAR FILTRATION RATE. ESTIMATED GFR IS NOT APPLICABLE FOR DIALYSIS PATIENTS. CBC W/PLT COUNT & AUTO [id number] 06:27:00 Test Item Value Reference Range Comments WHITE BLOOD CELL COUNT (BEAKER) (test rysf=103) 5.0 K/ L 3.5-10.5 RED BLOOD CELL COUNT (BEAKER) (test evvl=050) 3.44 M/ L 4.63-6.08 HEMOGLOBIN (BEAKER) (test gljl=080) 10.8 GM/DL 13.7-17.5 HEMATOCRIT (BEAKER) (test vgue=353) 31.5 % 40.1-51.0 MEAN CORPUSCULAR VOLUME (BEAKER) (test rsoa=297) 91.6 fL 79.0-92.2 MEAN CORPUSCULAR HEMOGLOBIN (BEAKER) (test 31.4 pg 25.7-32.2 mxls=853) MEAN CORPUSCULAR HEMOGLOBIN CONC (BEAKER) (test 34.3 GM/DL 32.3-36.5 bwjy=210) RED CELL DISTRIBUTION WIDTH (BEAKER) (test 13.7 % 11.6-14.4 xkof=184) PLATELET COUNT (BEAKER) (test twfv=174) 146 K/CU MM 150-450 MEAN PLATELET VOLUME (BEAKER) (test duzt=067) 12.1 fL 9.4-12.4 NUCLEATED RED BLOOD CELLS (BEAKER) (test 0 /100 WBC 0-0 wajg=106) NEUTROPHILS RELATIVE PERCENT (BEAKER) (test 48 % gvye=400) LYMPHOCYTES RELATIVE PERCENT (BEAKER) (test 37 % orub=906) MONOCYTES RELATIVE PERCENT (BEAKER) (test 8 % wrco=520) EOSINOPHILS RELATIVE PERCENT (BEAKER) (test 6 % seup=161) BASOPHILS RELATIVE PERCENT (BEAKER) (test 1 % fmwy=786) NEUTROPHILS ABSOLUTE COUNT (BEAKER) (test 2.42 K/ L 1.78-5.38 sgrm=455) LYMPHOCYTES ABSOLUTE COUNT (BEAKER) (test 1.83 K/ L 1.32-3.57 jvfd=004) MONOCYTES ABSOLUTE COUNT (BEAKER) (test 0.40 K/ L 0.30-0.82 bmvk=880) EOSINOPHILS ABSOLUTE COUNT (BEAKER) (test 0.30 K/ L 0.04-0.54 enrc=387) BASOPHILS ABSOLUTE COUNT (BEAKER) (test 0.04 K/ L 0.01-0.08 wvyi=241) IMMATURE GRANULOCYTES-RELATIVE PERCENT (BEAKER) 0 % 0-1 (test pnod=9531) TROPONIN [id number] 23:52:00 Test Item Value Reference Range Comments TROPONIN I (BEAKER) (test etuo=237) 0.03 ng/mL 0.00-0.03 Troponin I (TnI) levels [...] acidosis, acute neurological disease, and persistent tachyarrhythmia.POCT-GLUCOSE [id number] 22:03:00 Test Item Value Reference Range Comments POC-GLUCOSE METER (BEAKER) 315 mg/dL 70-110 TESTED AT [address] (test nyss=2930) [facility] [address] POCT-GLUCOSE [id number] 20:02:00 Test Item Value Reference Range Comments POC-GLUCOSE METER (BEAKER) 250 mg/dL 70-110 TESTED AT [address] (test ptbu=7226) [place] [address] TROPONIN [id number] 19:05:00 Test Item Value Reference Range Comments TROPONIN I (BEAKER) (test lnna=604) 0.04 ng/mL 0.00-0.03 Troponin I (TnI) levels [...] acidosis, acute neurological disease, and persistent tachyarrhythmia.POCT-GLUCOSE [id number] 17:40:00 Test Item Value Reference Range Comments POC-GLUCOSE METER (BEAKER) 246 mg/dL 70-110 TESTED AT [facility] [address] [facility] (test znxx=5773) [facility] [address] POCT-GLUCOSE [id number] 08:11:00 Test Item Value Reference Range Comments POC-GLUCOSE METER (BEAKER) 243 mg/dL 70-110 TESTED AT [facility] [address] [facility] (test kbrg=7834) [facility] [address] BASIC METABOLIC [id number] 05:04:00 Test Item Value Reference Range Comments SODIUM (BEAKER) (test 138 meq/L 136-145 hdra=694) POTASSIUM (BEAKER) (test 4.5 meq/L 3.5-5.1 huts=958) CHLORIDE (BEAKER) (test 110 meq/L 98-107 kalv=794) CO2 (BEAKER) (test 22 meq/L 22-29 pqjc=393) BLOOD UREA NITROGEN 34 mg/dL 7-21 (BEAKER) (test hnxc=534) CREATININE (BEAKER) (test 2.01 mg/dL 0.57-1.25 xazs=961) GLUCOSE RANDOM (BEAKER) 243 mg/dL 70-105 (test tcjk=205) CALCIUM (BEAKER) (test 8.5 mg/dL 8.4-10.2 ecil=340) EGFR (BEAKER) (test 35 mL/min/1.73 sq m ESTIMATED GFR IS NOT jubc=8630) ACCURATE CREATININE CLEARANCE IN PREDICTING GLOMERULAR FILTRATION RATE. ESTIMATED GFR IS NOT APPLICABLE FOR DIALYSIS PATIENTS. [id number] 04:56:00 Test Item Value Reference Range Comments PARTIAL THROMBOPLASTIN TIME (BEAKER) (test 35.0 seconds 22.5-36.0 pyuw=756) CBC W/PLT COUNT & AUTO [id number] 04:48:00 Test Item Value Reference Range Comments WHITE BLOOD CELL COUNT (BEAKER) (test edpw=201) 4.9 K/ L 3.5-10.5 RED BLOOD CELL COUNT (BEAKER) (test wamm=280) 3.36 M/ L 4.63-6.08 HEMOGLOBIN (BEAKER) (test vomm=957) 10.5 GM/DL 13.7-17.5 HEMATOCRIT (BEAKER) (test oydo=074) 30.5 % 40.1-51.0 MEAN CORPUSCULAR VOLUME (BEAKER) (test qmow=464) 90.8 fL 79.0-92.2 MEAN CORPUSCULAR HEMOGLOBIN (BEAKER) (test 31.3 pg 25.7-32.2 infq=431) MEAN CORPUSCULAR HEMOGLOBIN CONC (BEAKER) (test 34.4 GM/DL 32.3-36.5 yesr=669) RED CELL DISTRIBUTION WIDTH (BEAKER) (test 13.5 % 11.6-14.4 yyhk=691) PLATELET COUNT (BEAKER) (test lnbb=848) 116 K/CU MM 150-450 MEAN PLATELET VOLUME (BEAKER) (test pzby=700) 11.9 fL 9.4-12.4 NUCLEATED RED BLOOD CELLS (BEAKER) (test 0 /100 WBC 0-0 uabl=424) NEUTROPHILS RELATIVE PERCENT (BEAKER) (test 52 % txds=667) LYMPHOCYTES RELATIVE PERCENT (BEAKER) (test 36 % kgqo=491) MONOCYTES RELATIVE PERCENT (BEAKER) (test 8 % imib=955) EOSINOPHILS RELATIVE PERCENT (BEAKER) (test 4 % xpfv=989) BASOPHILS RELATIVE PERCENT (BEAKER) (test 0 % tvaf=818) NEUTROPHILS ABSOLUTE COUNT (BEAKER) (test 2.51 K/ L 1.78-5.38 pfgb=962) LYMPHOCYTES ABSOLUTE COUNT (BEAKER) (test 1.74 K/ L 1.32-3.57 bljf=101) MONOCYTES ABSOLUTE COUNT (BEAKER) (test 0.38 K/ L 0.30-0.82 idok=696) EOSINOPHILS ABSOLUTE COUNT (BEAKER) (test 0.18 K/ L 0.04-0.54 tkji=225) BASOPHILS ABSOLUTE COUNT (BEAKER) (test 0.02 K/ L 0.01-0.08 fdwo=533) IMMATURE GRANULOCYTES-RELATIVE PERCENT (BEAKER) 1 % 0-1 (test vkqk=3239) POCT-GLUCOSE [id number] 22:08:00 Test Item Value Reference Range Comments POC-GLUCOSE METER (BEAKER) 364 mg/dL 70-110 Notified HAYLEE BOSS/TESTED AT [facility] (test yqst=6250) [address] [facility] [address] POCT-GLUCOSE [id number] 17:05:00 Test Item Value Reference Range Comments POC-GLUCOSE METER (BEAKER) 389 mg/dL 70-110 Notified HAYLEE BOSS/TESTED AT [facility] (test wunh=7807) [address] [facility] [address] BASIC METABOLIC [id number] 16:28:00 Test Item Value Reference Range Comments SODIUM (BEAKER) (test 136 meq/L 136-145 ropa=251) POTASSIUM (BEAKER) (test 4.7 meq/L 3.5-5.1 cfxa=397) CHLORIDE (BEAKER) (test 107 meq/L 98-107 ffjd=373) CO2 (BEAKER) (test 23 meq/L 22-29 lptg=716) BLOOD UREA NITROGEN 35 mg/dL 7-21 (BEAKER) (test fycm=469) CREATININE (BEAKER) (test 2.22 mg/dL 0.57-1.25 wqby=743) GLUCOSE RANDOM (BEAKER) 358 mg/dL 70-105 (test drdg=693) CALCIUM (BEAKER) (test 8.7 mg/dL 8.4-10.2 yaxx=849) EGFR (BEAKER) (test 31 mL/min/1.73 sq m ESTIMATED GFR IS NOT vvfj=5879) ACCURATE CREATININE CLEARANCE IN PREDICTING GLOMERULAR FILTRATION RATE. ESTIMATED GFR IS NOT APPLICABLE FOR DIALYSIS PATIENTS. [id number] 16:26:00 Test Item Value Reference Range Comments PROTIME (BEAKER) (test ndgu=812) 13.4 seconds 11.9-14.2 INR (BEAKER) (test tzhg=356) 1.1 <=5.9 PARTIAL THROMBOPLASTIN TIME (BEAKER) (test 32.0 seconds 22.5-36.0 ehwo=807) Effective 09/23/2018: PT Reference Range ChangeNew: 11.9-14.2 Previous: 11.7- 14.7RECOMMENDED COUMADIN/WARFARIN INR THERAPY RANGESSTANDARD DOSE: 2.0-3.0 Includes: PROPHYLAXIS for venous thrombosis, systemic embolization; TREATMENT for venous thrombosis and/or pulmonary embolus.HIGH RISK: Target INR is2.5-3.5 for patients wiht mechanical heart valves.[id number] 16:26:00 Test Item Value Reference Range Comments PARTIAL THROMBOPLASTIN TIME (BEAKER) (test 32.0 seconds 22.5-36.0 mzpy=053) POCT-GLUCOSE [id number] 12:06:00 Test Item Value Reference Range Comments POC-GLUCOSE METER (BEAKER) 321 mg/dL 70-110 Notified HAYLEE BOSS/TESTED AT [facility] (test teur=5432) [address] [facility] [address] POCT-GLUCOSE [id number] 08:29:00 Test Item Value Reference Range Comments POC-GLUCOSE METER (BEAKER) 263 mg/dL 70-110 TESTED AT [place] [address] [facility] (test nyex=8440) [facility] [address] [id number] 04:54:00 Test Item Value Reference Range Comments PARTIAL THROMBOPLASTIN TIME (BEAKER) (test 31.0 seconds 22.5-36.0 zrmp=719) CBC W/PLT COUNT & AUTO [id number] 04:43:00 Test Item Value Reference Range Comments WHITE BLOOD CELL COUNT (BEAKER) (test agcs=742) 6.6 K/ L 3.5-10.5 RED BLOOD CELL COUNT (BEAKER) (test wrjt=732) 3.45 M/ L 4.63-6.08 HEMOGLOBIN (BEAKER) (test urfk=208) 10.9 GM/DL 13.7-17.5 HEMATOCRIT (BEAKER) (test wczy=609) 30.8 % 40.1-51.0 MEAN CORPUSCULAR VOLUME (BEAKER) (test gjuy=210) 89.3 fL 79.0-92.2 MEAN CORPUSCULAR HEMOGLOBIN (BEAKER) (test 31.6 pg 25.7-32.2 qnve=098) MEAN CORPUSCULAR HEMOGLOBIN CONC (BEAKER) (test 35.4 GM/DL 32.3-36.5 nuut=458) RED CELL DISTRIBUTION WIDTH (BEAKER) (test 13.5 % 11.6-14.4 bevq=700) PLATELET COUNT (BEAKER) (test nuir=132) 138 K/CU MM 150-450 MEAN PLATELET VOLUME (BEAKER) (test jtsf=701) 12.3 fL 9.4-12.4 NUCLEATED RED BLOOD CELLS (BEAKER) (test 0 /100 WBC 0-0 lels=646) NEUTROPHILS RELATIVE PERCENT (BEAKER) (test 64 % tnaj=147) LYMPHOCYTES RELATIVE PERCENT (BEAKER) (test 24 % vgej=154) MONOCYTES RELATIVE PERCENT (BEAKER) (test 8 % xygw=089) EOSINOPHILS RELATIVE PERCENT (BEAKER) (test 3 % jezk=638) BASOPHILS RELATIVE PERCENT (BEAKER) (test 1 % nkgh=222) NEUTROPHILS ABSOLUTE COUNT (BEAKER) (test 4.22 K/ L 1.78-5.38 jmhe=365) LYMPHOCYTES ABSOLUTE COUNT (BEAKER) (test 1.54 K/ L 1.32-3.57 mjkp=408) MONOCYTES ABSOLUTE COUNT (BEAKER) (test 0.53 K/ L 0.30-0.82 kjvs=396) EOSINOPHILS ABSOLUTE COUNT (BEAKER) (test 0.20 K/ L 0.04-0.54 gzii=012) BASOPHILS ABSOLUTE COUNT (BEAKER) (test 0.03 K/ L 0.01-0.08 tgyj=508) IMMATURE GRANULOCYTES-RELATIVE PERCENT (BEAKER) 1 % 0-1 (test crij=3737) POCT-GLUCOSE [id number] 22:11:00 Test Item Value Reference Range Comments POC-GLUCOSE METER (BEAKER) 319 mg/dL 70-110 Notified HAYLEE BOSS/TESTED AT [facility] (test kcmm=2414) [address] [place] [address] [id number] 20:11:00 Test Item Value Reference Range Comments PARTIAL THROMBOPLASTIN TIME (BEAKER) (test 33.3 seconds 22.5-36.0 gqig=630) POCT-GLUCOSE [id number] 18:49:00 Test Item Value Reference Range Comments POC-GLUCOSE METER (BEAKER) 309 mg/dL 70-110 TESTED AT [address] (test juuo=4801) [place] [address] POCT-GLUCOSE [id number] 14:48:00 Test Item Value Reference Range Comments POC-GLUCOSE METER (BEAKER) 161 mg/dL 70-110 TESTED AT [address] (test tilu=8939) [place] [address] POCT-GLUCOSE [id number] 14:46:00 Test Item Value Reference Range Comments POC-GLUCOSE METER (BEAKER) 159 mg/dL 70-110 TESTED AT [address] (test ilmo=1829) [place] [address] TROPONIN [id number] 13:58:00 Test Item Value Reference Range Comments TROPONIN I (BEAKER) (test gygk=774) < ng/mL 0.00-0.03 Troponin I (TnI) levels [...] failure, acidosis, acute neurological disease, and persistent tachyarrhythmia.[id number] 12:25:00 Test Item Value Reference Range Comments PARTIAL THROMBOPLASTIN TIME (BEAKER) (test 30.3 seconds 22.5-36.0 ggrz=332) POCT-GLUCOSE [id number] 12:18:00 Test Item Value Reference Range Comments POC-GLUCOSE METER (BEAKER) 168 mg/dL 70-110 TESTED AT [address] (test zxbz=6908) [place] [address] POCT-GLUCOSE [id number] 11:06:00 Test Item Value Reference Range Comments POC-GLUCOSE METER (BEAKER) 180 mg/dL 70-110 TESTED AT [address] (test bgjb=8470) [place] [address] POCT-GLUCOSE [id number] 10:21:00 Test Item Value Reference Range Comments POC-GLUCOSE METER (BEAKER) 195 mg/dL 70-110 TESTED AT [address] (test jqmw=2384) [place] [address] POCT-GLUCOSE [id number] 10:21:00 Test Item Value Reference Range Comments POC-GLUCOSE METER (BEAKER) 180 mg/dL 70-110 TESTED AT [address] (test czog=3711) [facility] [address] POCT-GLUCOSE [id number] 08:06:00 Test Item Value Reference Range Comments POC-GLUCOSE METER (BEAKER) 218 mg/dL 70-110 TESTED AT [address] (test chfg=8408) [place] [address] TROPONIN [id number] 07:00:00 Test Item Value Reference Range Comments TROPONIN I (BEAKER) (test cprz=331) 0.01 ng/mL 0.00-0.03 Troponin I (TnI) levels [...] afterwardsOnce on admission and Daily AM afterwardsPOCT-GLUCOSE [id number] 06:58:00 Test Item Value Reference Range Comments POC-GLUCOSE METER (BEAKER) 248 mg/dL 70-110 TESTED AT [facility] [address] [facility] (test akkc=5701) [facility] [address] [id number] 06:54:00 Test Item Value Reference Range Comments PHOSPHORUS (BEAKER) (test dgzl=124) 2.5 mg/dL 2.3-4.7 Once on admission and Daily AM afterwardsOnce on admission and Daily AM afterwardsOnce on admission and Daily AM [id number] 06:54:00 Test Item Value Reference Range Comments MAGNESIUM (BEAKER) (test aoay=208) 2.2 mg/dL 1.6-2.6 Once on admission and Daily AM afterwardsOnce on admission and Daily AM afterwardsOnce on admission and Daily AM afterwardsBASIC METABOLIC [id number] 06:54:00 Test Item Value Reference Range Comments SODIUM (BEAKER) (test 137 meq/L 136-145 tiwh=771) POTASSIUM (BEAKER) (test 4.4 meq/L 3.5-5.1 vsgv=127) CHLORIDE (BEAKER) (test 111 meq/L 98-107 qypm=288) CO2 (BEAKER) (test 22 meq/L 22-29 jpdw=621) BLOOD UREA NITROGEN 37 mg/dL 7-21 (BEAKER) (test zaqu=950) CREATININE (BEAKER) (test 1.93 mg/dL 0.57-1.25 nrsz=712) GLUCOSE RANDOM (BEAKER) 253 mg/dL 70-105 (test zhch=182) CALCIUM (BEAKER) (test 8.1 mg/dL 8.4-10.2 deyj=200) EGFR (BEAKER) (test 37 mL/min/1.73 sq m ESTIMATED GFR IS NOT twru=1884) ACCURATE CREATININE CLEARANCE IN PREDICTING GLOMERULAR FILTRATION RATE. ESTIMATED GFR IS NOT APPLICABLE FOR DIALYSIS PATIENTS. Once on admission and Daily AM afterwardsOnce on admission and Daily AM afterwardsOnce on admission and Daily AM afterwardsCBC W/PLT COUNT & AUTO [id number] 06:42:00 Test Item Value Reference Range Comments WHITE BLOOD CELL COUNT (BEAKER) (test kdln=280) 4.8 K/ L 3.5-10.5 RED BLOOD CELL COUNT (BEAKER) (test loxb=102) 3.50 M/ L 4.63-6.08 HEMOGLOBIN (BEAKER) (test vqbv=103) 11.0 GM/DL 13.7-17.5 HEMATOCRIT (BEAKER) (test ytxh=178) 31.7 % 40.1-51.0 MEAN CORPUSCULAR VOLUME (BEAKER) (test ckrd=395) 90.6 fL 79.0-92.2 MEAN CORPUSCULAR HEMOGLOBIN (BEAKER) (test 31.4 pg 25.7-32.2 issb=036) MEAN CORPUSCULAR HEMOGLOBIN CONC (BEAKER) (test 34.7 GM/DL 32.3-36.5 eqte=785) RED CELL DISTRIBUTION WIDTH (BEAKER) (test 13.5 % 11.6-14.4 mmsk=292) PLATELET COUNT (BEAKER) (test rckx=452) 118 K/CU MM 150-450 MEAN PLATELET VOLUME (BEAKER) (test setj=304) 12.1 fL 9.4-12.4 NUCLEATED RED BLOOD CELLS (BEAKER) (test 0 /100 WBC 0-0 umgf=154) NEUTROPHILS RELATIVE PERCENT (BEAKER) (test 42 % hmga=837) LYMPHOCYTES RELATIVE PERCENT (BEAKER) (test 46 % jxsj=735) MONOCYTES RELATIVE PERCENT (BEAKER) (test 7 % glri=713) EOSINOPHILS RELATIVE PERCENT (BEAKER) (test 4 % yqil=823) BASOPHILS RELATIVE PERCENT (BEAKER) (test 1 % lxzd=819) NEUTROPHILS ABSOLUTE COUNT (BEAKER) (test 2.00 K/ L 1.78-5.38 lvll=642) LYMPHOCYTES ABSOLUTE COUNT (BEAKER) (test 2.22 K/ L 1.32-3.57 cjsj=475) MONOCYTES ABSOLUTE COUNT (BEAKER) (test 0.34 K/ L 0.30-0.82 vgsh=948) EOSINOPHILS ABSOLUTE COUNT (BEAKER) (test 0.20 K/ L 0.04-0.54 qfpv=595) BASOPHILS ABSOLUTE COUNT (BEAKER) (test 0.04 K/ L 0.01-0.08 vweg=750) IMMATURE GRANULOCYTES-RELATIVE PERCENT (BEAKER) 1 % 0-1 (test fnhf=7739) [id number] 06:28:00 Test Item Value Reference Range Comments PARTIAL THROMBOPLASTIN TIME (BEAKER) (test 30.6 seconds 22.5-36.0 mcdg=582) POCT-GLUCOSE [id number] 06:01:00 Test Item Value Reference Range Comments POC-GLUCOSE METER (BEAKER) 266 mg/dL 70-110 TESTED AT [address] (test wtio=3125) [place] [id number] POCT-GLUCOSE [id number] 04:57:00 Test Item Value Reference Range Comments POC-GLUCOSE METER (BEAKER) 271 mg/dL 70-110 TESTED AT [address] (test mlpj=3653) [facility] [address] POCT-GLUCOSE [id number] 04:05:00 Test Item Value Reference Range Comments POC-GLUCOSE METER (BEAKER) 308 mg/dL 70-110 Notified HAYLEE BOSS/TESTED AT [facility] (test rwqe=0998) [address] [place] [id number] POCT-GLUCOSE [id number] 02:57:00 Test Item Value Reference Range Comments POC-GLUCOSE METER (BEAKER) 343 mg/dL 70-110 Notified HAYLEE BOSS/TESTED AT [facility] (test hdtx=9581) [address] [place] [address] RAD, CHEST, 1 VIEW, NON [id number] 02:27:00Reason for exam:->mediastinal wideningShould this be performed [...] Wilmer Kline Verified Date/Time: 01/07/2019 02:27:45 POCT-GLUCOSE [id number] 01:57:00 Test Item Value Reference Range Comments POC-GLUCOSE METER (BEAKER) 369 mg/dL 70-110 TESTED AT [address] (test qacf=5110) [place] [id number] POCT-GLUCOSE [id number] 01:06:00 Test Item Value Reference Range Comments POC-GLUCOSE METER (BEAKER) 395 mg/dL 70-110 Notified HAYLEE BOSS/TESTED AT [facility] (test gliw=8796) [address] [place] [address] TROPONIN [id number] 00:36:00 Test Item Value Reference Range Comments TROPONIN I (BEAKER) (test yqfn=210) 0.01 ng/mL 0.00-0.03 Troponin I (TnI) levels [...] NATRIURETIC PEPTIDE (BEAKER) (test 151 pg/mL 0-100 umru=785) [id number] 00:19:00 Test Item Value Reference Range Comments PARTIAL THROMBOPLASTIN TIME (BEAKER) (test 28.2 seconds 22.5-36.0 tnly=961) Prior to initiating heparinPOCT-GLUCOSE [id number] 00:16:00 Test Item Value Reference Range Comments POC-GLUCOSE METER (BEAKER) 413 mg/dL 70-110 TESTED AT [address] (test qqiz=0078) [place] [id number] POCT-GLUCOSE [id number] 23:10:00 Test Item Value Reference Range Comments POC-GLUCOSE METER (BEAKER) 452 mg/dL 70-110 Notified HAYLEE BOSS/TESTED AT [facility] (test ehwr=3668) [address] [facility] [address] POCT-GLUCOSE [id number] 22:06:00 Test Item Value Reference Range Comments POC-GLUCOSE METER (BEAKER) 383 mg/dL 70-110 TESTED AT [facility] [address] (test wqjn=1213) [facility] [address] CT, BRAIN, WITHOUT [id number] 21:38:00FINAL REPORT CT Head without contrast CLINICAL [...] by: WILMER KLINE MD on 02/2019 09:38 [facility] [id number] 21:12:00 Test Item Value Reference Range Comments SODIUM (BEAKER) (test 134 meq/L 136-145 rldd=108) POTASSIUM (BEAKER) (test 4.9 meq/L 3.5-5.1 Specimen slightly ubmh=404) hemolyzed CHLORIDE (BEAKER) (test 107 meq/L 98-107 vypp=352) CO2 (BEAKER) (test 19 meq/L 22-29 nggw=769) BLOOD UREA NITROGEN 36 mg/dL 7-21 (BEAKER) (test vnbc=748) CREATININE (BEAKER) (test 1.95 mg/dL 0.57-1.25 Specimen slightly utga=525) hemolyzed GLUCOSE RANDOM (BEAKER) 311 mg/dL 70-105 (test wvep=108) CALCIUM (BEAKER) (test 8.5 mg/dL 8.4-10.2 dkzg=860) EGFR (BEAKER) (test 36 mL/min/1.73 sq m ESTIMATED GFR IS NOT mgim=0472) ACCURATE CREATININE CLEARANCE IN PREDICTING GLOMERULAR FILTRATION RATE. ESTIMATED GFR IS NOT APPLICABLE FOR DIALYSIS PATIENTS. HEMOGLOBIN [id number] 20:17:00 Test Item Value Reference Range Comments HEMOGLOBIN A1C (BEAKER) (test fdzd=510) 11.9 % 4.3-6.1 TROPONIN [id number] 19:52:00 Test Item Value Reference Range Comments TROPONIN I (BEAKER) (test ttdc=742) < ng/mL 0.00-0.03 Troponin I (TnI) levels [...] acute neurological disease, and persistent tachyarrhythmia.HEPATIC FUNCTION [id number] 19:46: 00 Test Item Value Reference Range Comments TOTAL PROTEIN (BEAKER) (test 6.3 gm/dL 6.0-8.3 Specimen slightly hemolyzed juja=329) ALBUMIN (BEAKER) (test 2.8 g/dL 3.5-5.0 Specimen slightly hemolyzed iwkz=8161) BILIRUBIN TOTAL (BEAKER) (test 0.4 mg/dL 0.2-1.2 Specimen slightly hemolyzed xigy=556) BILIRUBIN DIRECT (BEAKER) (test 0.1 mg/dL 0.1-0.5 Specimen slightly hemolyzed pixh=367) ALKALINE PHOSPHATASE (BEAKER) 104 U/L 40-150 (test dwtq=288) AST (SGOT) (BEAKER) (test 29 U/L 5-34 Specimen slightly hemolyzed gcok=677) ALT (SGPT) (BEAKER) (test 23 U/L 6-55 Specimen slightly hemolyzed begp=904) Specimen moderately [id number] 19:32:00 Test Item Value Reference Range Comments PARTIAL THROMBOPLASTIN TIME (BEAKER) (test 28.1 seconds 22.5-36.0 inbo=228) PROTHROMBIN TIME/[id number] 19:31:00 Test Item Value Reference Range Comments PROTIME (BEAKER) (test uwny=979) 11.4 seconds 11.9-14.2 INR (BEAKER) (test cbry=610) 0.9 <=5.9 Effective 09/23/2018: PT Reference Range ChangeNew: 11.9-14.2 Previous: 11.7- 14.7RECOMMENDED COUMADIN/WARFARIN INR THERAPY RANGESSTANDARD DOSE: 2.0-3.0 Includes: PROPHYLAXIS for venous thrombosis, systemic embolization; TREATMENT for venous thrombosis and/or pulmonary embolus.HIGH RISK: Target INR is2.5-3.5 for patients wiht mechanical heart valves.CBC W/PLT COUNT & AUTO [id number] 19:25:00 Test Item Value Reference Range Comments WHITE BLOOD CELL COUNT (BEAKER) (test tmas=812) 5.2 K/ L 3.5-10.5 RED BLOOD CELL COUNT (BEAKER) (test ozoq=375) 3.84 M/ L 4.63-6.08 HEMOGLOBIN (BEAKER) (test tjlp=103) 12.2 GM/DL 13.7-17.5 HEMATOCRIT (BEAKER) (test jmpa=262) 34.6 % 40.1-51.0 MEAN CORPUSCULAR VOLUME (BEAKER) (test ypsl=652) 90.1 fL 79.0-92.2 MEAN CORPUSCULAR HEMOGLOBIN (BEAKER) (test 31.8 pg 25.7-32.2 lypl=464) MEAN CORPUSCULAR HEMOGLOBIN CONC (BEAKER) (test 35.3 GM/DL 32.3-36.5 otof=003) RED CELL DISTRIBUTION WIDTH (BEAKER) (test 13.6 % 11.6-14.4 miof=961) PLATELET COUNT (BEAKER) (test nzvb=564) 140 K/CU MM 150-450 MEAN PLATELET VOLUME (BEAKER) (test axma=240) 11.8 fL 9.4-12.4 NUCLEATED RED BLOOD CELLS (BEAKER) (test 0 /100 WBC 0-0 fdzo=127) NEUTROPHILS RELATIVE PERCENT (BEAKER) (test 54 % xnkc=280) LYMPHOCYTES RELATIVE PERCENT (BEAKER) (test 36 % tbvq=511) MONOCYTES RELATIVE PERCENT (BEAKER) (test 5 % ctxd=591) EOSINOPHILS RELATIVE PERCENT (BEAKER) (test 3 % zbgs=976) BASOPHILS RELATIVE PERCENT (BEAKER) (test 1 % wjan=952) NEUTROPHILS ABSOLUTE COUNT (BEAKER) (test 2.82 K/ L 1.78-5.38 itcz=049) LYMPHOCYTES ABSOLUTE COUNT (BEAKER) (test 1.89 K/ L 1.32-3.57 jzsv=018) MONOCYTES ABSOLUTE COUNT (BEAKER) (test 0.28 K/ L 0.30-0.82 gzbu=367) EOSINOPHILS ABSOLUTE COUNT (BEAKER) (test 0.17 K/ L 0.04-0.54 btqu=612) BASOPHILS ABSOLUTE COUNT (BEAKER) (test 0.04 K/ L 0.01-0.08 aiuk=729) IMMATURE GRANULOCYTES-RELATIVE PERCENT (BEAKER) 1 % 0-1 (test exuw=7397) POCT-GLUCOSE [id number] 17:51:00 Test Item Value Reference Range Comments POC-GLUCOSE METER (BEAKER) 342 mg/dL 70-110 Notified HAYLEE BOSS/TESTED AT [facility] (test bgxg=3940) [address] [facility] [id number]
[2019-05-29] MEDS ORDERED: PROMETHAZINE INJ 25 MG/ML AMP ONE (12:51)
[2019-05-29] MEDS ORDERED: FENTANYL CITR 100 MCG/2 ML ONE ×2 (12:52→14:30)
[2019-05-29] MEDS ORDERED: NA CHLORIDE 0.9% 1,000 ML ONE (12:52)
[2019-05-29 13:09] LABS: Absolute Lymphocytes (CBC) 1.4 K/uL (0.7-4.9); Basophils % 1.3 % (0-1.3); Hematocrit 45.6 % (39.6-49.0); Lymphocytes % 20.4 % (15.3-44.8); MPV 10.3 fL (7.6-11.3); RBC Red Blood Cell Count 5.16 M/uL (4.33-5.43)
[2019-05-29 13:13] LABS: Protime INR 1.03
--- NOTE | 2019-05-29 13:25 | RAD REPORT ---
EXAM DESCRIPTION: RAD - Chest Single View - 05/29/2019 1:13 pm CLINICAL HISTORY: ABDOMINAL DISTENTION Chest pain. COMPARISON: Chest Pa And Lat (2 Views) dated 05/18/2019; Chest Single View dated 05/17/2019; Chest Sin gle View dated 05/13/2019; Chest Single View dated 04/03/2019Chest Pa And Lat (2 Views) dated 05/18/2019 ; Chest Single View dated 05/17/2019; Chest Single View dated 05/13/2019; Chest Single View dated 2018 FINDINGS: Portable technique limits examination quality. The lungs are grossly clear. The heart is normal in size. No displaced fractures. IMPRESSION: No acute intrathoracic process suspected.
[2019-05-29 13:32] LABS: ALT/SGPT 18 U/L (12-78); AST/SGOT 13 U/L (15-37); Albumin 2.9 g/dL (3.4-5.0); Alkaline Phosphatase 153 U/L (45-117); BUN Blood Urea Nitrogen 38 mg/dL (7-18); Bicarbonate 17 mmol/L (21-32); Bilirubin Direct 0.1 mg/dL (0-0.2); Bilirubin Total 0.6 mg/dL (0.2-1.0); Glucose Level 400 mg/dL (74-106); Lipase 202 U/L (73-393); Magnesium 2.2 mg/dL (1.8-2.4); NT PRO-BNP 288 pg/mL (<125); Potassium 4.1 mmol/L (3.5-5.1); Protein, Total 7.3 g/dL (6.4-8.2); Sodium Level 140 mmol/L (136-145); Troponin (Emerg Dept Use Only) < 0.02 ng/mL (0.0-0.045)
[2019-05-29] MEDS ORDERED: INSULIN -REGULAR HUMAN 50 UNIT/0.5 ML ML ONE ×2 (13:55→15:58)
--- NOTE | 2019-05-29 14:01 | RAD REPORT ---
EXAM DESCRIPTION: CT - Abdomen Pelvis Wo Contrast - 05/29/2019 1:54 pm CLINICAL HISTORY: Abdominal pain. ABD PAIN COMPARISON: <Comparisons> TECHNIQUE: CT imaging of the abdomen and pelvis was performed without contrast. Solid organ, bowel a nd vascular assessment is limited due to lack of IV and oral contrast. All CT scans are performed using dose optimization technique as appropriate and may include automated exposure control or mA/KV adjustment according to patient size. FINDINGS: The lower lung farris are clear. Mild liver cirrhosis is seen. Cholecystectomy clips.The spleen, pancreas, adrenal glands and kidneys are within normal limits. No hydronephrosis. No bowel obstruction, free air, free fluid or abscess. Sigmoid diverticulosis coli is present without diverticulitis. The appendix is normal. Small fat containing umbilical hernia. The osseous structures are within normal limits.Small fat containing right inguinal hernia. IMPRESSION: No acute intra-abdominal or pelvic findings. Mild liver cirrhosis. A limited non-contrast examination was performed as detailed.
[2019-05-29] MEDS ORDERED: cloNIDine HCL 0.1 MG TAB ONE (14:30)
--- NOTE | 2019-05-29 15:25 | ER ---
Nurse's Notes [facility] Name: Wero Kwong Sr Age: 53 yrs Sex: Male : 1965 Arrival Date: 05/29/2019 Time: 12:01 Bed 7 Private MD: Diagnosis: Unspecified abdominal pain;Unspecified cirrhosis of liver-mild;Diabetes mellitus due to underlying condition with hyperglycemia Presentation: 05/29 12:11 Presenting complaint: Upper abdominal pain and N/V x 3 days. Denies fever/diarrhea. Not hb tolerating fluids. Transition of care: patient was not received from another setting of care. Onset of symptoms was May 27, 2019. Risk Assessment: Do you want to hurt yourself or someone else? Patient reports no desire to harm self or others. Initial Sepsis Screen: Does the patient meet any 2 criteria? No. Patient's initial sepsis screen is negative. Does the patient have a suspected source of infection? No. Patient's initial sepsis screen is negative. Care prior to arrival: None. 12:11 Method Of Arrival: Ambulatory hb 12:11 Acuity: [facility] 3 hb Historical: - Allergies: 12:16 Codeine; hb 12:16 Hydrocodone-Acetaminophen; hb 12:16 Morphine; hb - Home Meds: 12:16 acetazolamide 500 mg Oral cpER 1 cap 2 times per day [Active]; citalopram 20 mg tab 1 hb tab once daily [Active]; clopidogrel 75 mg Oral tab 1 tab once daily [Active]; furosemide 40 mg Oral tab 1 tab 2 times per day [Active]; gabapentin 300 mg Oral cap 3 caps twice a day [Active]; simvastatin 40 mg Oral tab 1 tab once daily [Active]; lisinopril 10 mg Oral tab 1 tab once daily [Active]; spironolactone 25 mg Oral tab nightly [Active]; levetiracetam 500 mg Oral tab 1 tab 2 times per day [Active]; travatan eye drops [Active]; Humulin 70/30 100 unit/mL (70-30) Sub-Q susp [Active]; - PMHx: 12:16 Cirrhosis; High Cholesterol; CVA; Diabetes - IDDM; CHF; Hypertension; CAD; kidney hb failure; Myocardial infarction; neuropathy; Seizures; - PSHx: 12:16 cardiac stents; Cholecystectomy; hb - Immunization history:: Adult Immunizations up to date. - Coronavirus screen:: The patient has NOT traveled to [place], [place], or [place] in the past 14 days. The patient has NOT had contact with known/suspected case of Coronavirus? Proceed with normal triage procedures. - Social history:: Smoking status: Patient reports the use of cigarette tobacco products, smokes one-half pack cigarettes per day. - Ebola Screening: : No symptoms or risks identified at this time. Screenin:40 Abuse screen: Denies threats or abuse. Nutritional screening: No deficits noted. em Tuberculosis screening: No symptoms or risk factors identified. Fall Risk None identified. Assessment: 12:40 General: Appears in no apparent distress. uncomfortable, Behavior is calm, cooperative, em Denies fever. Pain: Complains of pain in abdomen Pain currently is 10 out of 10 on a pain scale. Pain began 2-3 days ago. Neuro: Level of Consciousness is awake, alert, obeys commands, Oriented to person, place, time, situation, Appropriate for age. Cardiovascular: Capillary refill < 3 seconds Patient's skin is warm and dry. Respiratory: Airway is patent Respiratory effort is even, unlabored, Respiratory pattern is regular, symmetrical. GI: Abdomen is flat, Bowel sounds present X 4 quads. Abd is soft X 4 quads Abdomen is tender to palpation in abdomen diffusely Reports nausea, vomiting, Patient currently denies diarrhea. Derm: Skin is intact, is healthy with good turgor, Skin is pink, warm \T\ dry. Musculoskeletal: Capillary refill < 3 seconds, Range of motion: intact in all extremities. 14:10 Reassessment: Patient appears in no apparent distress at this time. states he does not em want the rush, states he can pee in urinal, provider notified, request pain medication. 15:09 Reassessment: Patient appears in no apparent distress at this time. Patient and/or em family updated on plan of care and expected duration. Pain level reassessed. Patient is alert, oriented x 3, equal unlabored respirations, skin warm/dry/pink. Patient states feeling better. Patient states symptoms have improved. 16:00 Reassessment: Patient appears in no apparent distress at this time. Patient and/or em family updated on plan of care and expected duration. Pain level reassessed. Patient is alert, oriented x 3, equal unlabored respirations, skin warm/dry/pink. pending provider to come speak with pt about results Patient states feeling better. Patient states symptoms have improved. 16:14 Reassessment: given ice chips, tolerated well. em 16:20 Reassessment: pt wheeled to the restroom at this time, nad, pt returned to exam room tw2 for discharge. Vital Signs: 12:12 BP 177 / 110; Pulse 88; Resp 16; Temp 97.9; Pulse Ox 99% on R/A; Weight 93.89 kg; hb Height 5 ft. 7 in. (170.18 cm); Pain 9/10; 13:16 BP 165 / 105; Pulse 92; Resp 17; Pulse Ox 99% on R/A; tw2 14:22 BP 183 / 134; Pulse 91; Resp 17; Pulse Ox 99% ; tw2 14:59 BP 137 / 87; Pulse 97; Resp 17; Pulse Ox 98% on R/A; tw2 16:00 BP 161 / 103; Pulse 99; Resp 18; Pulse Ox 100% on R/A; Pain 6/10; em 12:12 Body Mass Index 32.42 (93.89 kg, 170.18 cm) hb ED Course: 12:01 Patient arrived in ED. mr 12:12 Triage completed. hb 12:12 Arm band placed on. hb 12:14 Nara Jefferson FNP-C is PHCP. snw 12:14 Mohinder Tejada MD is Attending Physician. snw 12:40 Patient has correct armband on for positive identification. Bed in low position. Call em light in reach. Side rails up X2. Adult w/ patient. Pulse ox on. NIBP on. 12:55 Initial lab(s) drawn, by me, sent to lab. Inserted saline lock: 20 gauge in right em forearm, using aseptic technique. Blood collected. 13:13 XRAY Chest (1 view) In Process Unspecified. EDMS 13:25 Ronnie Wilhelm, RN is Primary Nurse. em 13:55 CT Abd/Pelvis - Without Contrast In Process Unspecified. EDMS 13:55 CT completed. Patient tolerated procedure well. Patient moved back from CT. mw3 15:52 Awaiting: completion of IV fluids at this time prior to discharge. tw2 16:24 No provider procedures requiring assistance completed. IV discontinued, intact, em bleeding controlled, No redness/swelling at site. Pressure dressing applied. Administered Medications: 13:00 Drug: Phenergan 12.5 mg Route: IVP; Site: right forearm; em 13:40 Follow up: Response: No adverse reaction; Marked relief of symptoms; Nausea is decreasedem 13:02 Drug: fentaNYL (PF) 25 mcg Route: IVP; Site: right forearm; em 14:19 Follow up: Response: No adverse reaction; Marked relief of symptoms; Pain is unchanged, em physician notified; RASS: Alert and Calm (0) 13:14 Drug: NS 0.9% 1000 ml Route: IV; Rate: 75 ml/hr; Site: right forearm; em 14:15 Drug: Insulin Regular Human 5 units {Co-Signature: tone (Leslye Calderon RN).} Route: Sub-Q; em Site: right upper arm; 15:19 Follow up: Response: No adverse reaction; Blood sugar is lowered em 14:16 Drug: Insulin Regular Human 5 units {Co-Signature: tone (Leslye Calderon RN).} Route: IVP; em Site: right forearm; 15:19 Follow up: Response: No adverse reaction; Blood sugar is lowered em 14:54 Drug: NS 0.9% 500 ml Route: IV; Rate: bolus; Site: right forearm; em 16:00 Follow up: Response: No adverse reaction; IV Status: Completed infusion; IV Intake: em 500ml 14:59 Drug: fentaNYL (PF) 25 mcg Route: IVP; Site: right forearm; em 15:20 Follow up: Response: No adverse reaction; Marked relief of symptoms; Pain is decreased; em RASS: Alert and Calm (0) 15:59 Drug: cloNIDine 0.1 mg Route: PO; em 16:20 Follow up: Response: No adverse reaction em 16:00 Drug: Insulin Regular Human 5 units {Co-Signature: em (Ronnie Wilhelm RN).} Route: IVP; sg Site: right forearm; 16:20 Follow up: Response: No adverse reaction em Point of Care Testing: Blood Glucose: 15:15 Blood Glucose: 352 mg/dL; em Ranges: Intake: 16:00 IV: 500ml; Total: 500ml. em Outcome: 15:24 Discharge ordered by . snw 16:41 Discharged to home via wheelchair, with family. em 16:41 Condition: good 16:41 Discharge instructions given to patient, family, Instructed on discharge instructions, follow up and referral plans. the need for admit, Demonstrated understanding of instructions, follow-up care, medications, Prescriptions given X 3. 16:41 Patient left the ED. em Signatures: Dispatcher [employer] EDMI Loki Miranda, HAYLEE RN Nara Jefferson, T[employer] BOTT[employer] ASSEMBLER-C T[employer] BOTTOM ASSEMBLER-Csnw Tiffany Lopez Ronnie Wilhelm RN RN Julia Child RN RN Leslye Calderon RN RN 2 Marisol Murphy 3 Leslye Calderon RN tw2 Ronnie Wilhelm RN
--- NOTE | 2019-05-29 15:25 | EDPHYS ---
Physician Documentation [facility] Name: Wero Kwong Sr Age: 53 yrs Sex: Male : 1965 Arrival Date: 05/29/2019 Time: 12:01 Bed 7 Private MD: CYRUS Physician Mohinder Tejada HPI: 05/29 13:56 This 53 yrs old Male presents to ER via Ambulatory with complaints of snw Abdominal Pain, Vomiting. 13:56 The patient presents with abdominal pain that is diffuse. Onset: The symptoms/episode snw began/occurred gradually, 3 day(s) ago, and became persistent. The symptoms do not radiate. Associated signs and symptoms: Pertinent positives: nausea and vomiting. The symptoms are described as crampy. Severity of pain: At its worst the pain was moderate. The patient has not experienced similar symptoms in the past. The patient has not recently seen a physician. sees [facility] in [place]. Historical: - Allergies: 12:16 Codeine; hb 12:16 Hydrocodone-Acetaminophen; hb 12:16 Morphine; hb - Home Meds: 12:16 acetazolamide 500 mg Oral cpER 1 cap 2 times per day [Active]; citalopram 20 mg tab 1 hb tab once daily [Active]; clopidogrel 75 mg Oral tab 1 tab once daily [Active]; furosemide 40 mg Oral tab 1 tab 2 times per day [Active]; gabapentin 300 mg Oral cap 3 caps twice a day [Active]; simvastatin 40 mg Oral tab 1 tab once daily [Active]; lisinopril 10 mg Oral tab 1 tab once daily [Active]; spironolactone 25 mg Oral tab nightly [Active]; levetiracetam 500 mg Oral tab 1 tab 2 times per day [Active]; travatan eye drops [Active]; Humulin 70/30 100 unit/mL (70-30) Sub-Q susp [Active]; - PMHx: 12:16 Cirrhosis; High Cholesterol; CVA; Diabetes - IDDM; CHF; Hypertension; CAD; kidney hb failure; Myocardial infarction; neuropathy; Seizures; - PSHx: 12:16 cardiac stents; Cholecystectomy; hb - Immunization history:: Adult Immunizations up to date. - Coronavirus screen:: The patient has NOT traveled to [place], [place], or [place] in the past 14 days. The patient has NOT had contact with known/suspected case of Coronavirus? Proceed with normal triage procedures. - Social history:: Smoking status: Patient reports the use of cigarette tobacco products, smokes one-half pack cigarettes per day. - Ebola Screening: : No symptoms or risks identified at this time. ROS: 13:46 Constitutional: Negative for fever, chills, and weight loss, Eyes: Negative for injury, snw pain, redness, and discharge, ENT: Negative for injury, pain, and discharge, Neck: Negative for injury, pain, and swelling, Cardiovascular: Negative for chest pain, palpitations, and edema, Respiratory: Negative for shortness of breath, cough, wheezing, and pleuritic chest pain, Back: Negative for injury and pain, : Negative for injury, bleeding, discharge, and swelling, MS/Extremity: Negative for injury and deformity, Skin: Negative for injury, rash, and discoloration, Neuro: Negative for headache, weakness, numbness, tingling, and seizure, Psych: Negative for depression, anxiety, suicide ideation, homicidal ideation, and hallucinations. 13:46 Abdomen/GI: Positive for abdominal pain, nausea, vomiting. Exam: 13:45 Constitutional: This is a well developed, well nourished patient who is awake, alert, snw and in no acute distress. Head/Face: Normocephalic, atraumatic. Eyes: Pupils equal round and reactive to light, extra-ocular motions intact. Lids and lashes normal. Conjunctiva and sclera are non-icteric and not injected. Cornea within normal limits. Periorbital areas with no swelling, redness, or edema. ENT: Nares patent. No nasal discharge, no septal abnormalities noted. Tympanic membranes are normal and external auditory canals are clear. Oropharynx with no redness, swelling, or masses, exudates, or evidence of obstruction, uvula midline. Mucous membranes moist. Neck: Trachea midline, no thyromegaly or masses palpated, and no cervical lymphadenopathy. Supple, full range of motion without nuchal rigidity, or vertebral point tenderness. No Meningismus. Chest/axilla: Normal chest wall appearance and motion. Nontender with no deformity. No lesions are appreciated. Cardiovascular: Regular rate and rhythm with a normal S1 and S2. No gallops, murmurs, or rubs. Normal PMI, no JVD. No pulse deficits. Respiratory: Lungs have equal breath sounds bilaterally, clear to auscultation and percussion. No rales, rhonchi or wheezes noted. No increased work of breathing, no retractions or nasal flaring. Back: No spinal tenderness. No costovertebral tenderness. Full range of motion. Skin: Warm, dry with normal turgor. Normal color with no rashes, no lesions, and no evidence of cellulitis. MS/ Extremity: Pulses equal, no cyanosis. Neurovascular intact. Full, normal range of motion. Neuro: Awake and alert, GCS 15, oriented to person, place, time, and situation. Cranial nerves II-XII grossly intact. Motor strength 5/5 in all extremities. Sensory grossly intact. Cerebellar exam normal. Normal gait. Psych: Awake, alert, with orientation to person, place and time. Behavior, mood, and affect are within normal limits. 13:45 Abdomen/GI: Inspection: distension, that is mild, Bowel sounds: normal, Palpation: mild abdominal tenderness, in all quadrants. Vital Signs: 12:12 BP 177 / 110; Pulse 88; Resp 16; Temp 97.9; Pulse Ox 99% on R/A; Weight 93.89 kg; hb Height 5 ft. 7 in. (170.18 cm); Pain 9/10; 13:16 BP 165 / 105; Pulse 92; Resp 17; Pulse Ox 99% on R/A; tw2 14:22 BP 183 / 134; Pulse 91; Resp 17; Pulse Ox 99% ; tw2 14:59 BP 137 / 87; Pulse 97; Resp 17; Pulse Ox 98% on R/A; tw2 16:00 BP 161 / 103; Pulse 99; Resp 18; Pulse Ox 100% on R/A; Pain 6/10; em 12:12 Body Mass Index 32.42 (93.89 kg, 170.18 cm) hb MDM: 12:20 Patient medically screened. snw 15:38 Data reviewed: vital signs, nurses notes. Data interpreted: Pulse oximetry: on room air snw is 98 %. Interpretation: normal. Counseling: I had a detailed discussion with the patient and/or guardian regarding: the historical points, exam findings, and any diagnostic results supporting the discharge/admit diagnosis, the presence of at least one elevated blood pressure reading (>120/80) during this emergency department visit, lab results, radiology results, the need for outpatient follow up, to return to the emergency department if symptoms worsen or persist or if there are any questions or concerns that arise at home. Special discussion: Based on the patient's Hx, exam, and Dx evaluation, there is no indication for emergent surgery or inpatient Tx. It is understood by the patient/guardian that if the Sx's persist or worsen they need to return immediately for re-evaluation. I have referred the patient to see his PCP for further evaluation of high blood pressure. Based on the history and exam findings, there is no indication for further emergent testing or inpatient evaluation. I discussed with the patient/guardian the need to see the primary care provider for further evaluation of the symptoms. 05/29 12:31 Order name: Basic Metabolic Panel; Complete Time: 13:33 snw 05/29 12:31 Order name: CBC with Diff; Complete Time: 13:12 snw 05/29 12:31 Order name: LFT's; Complete Time: 13:33 snw 05/29 12:31 Order name: Magnesium; Complete Time: 13:33 snw 05/29 12:31 Order name: NT PRO-BNP; Complete Time: 13:33 snw 05/29 12:31 Order name: PT-INR; Complete Time: 13:22 snw 05/29 12:31 Order name: Troponin (emerg Dept Use Only); Complete Time: 13:33 snw 05/29 12:31 Order name: XRAY Chest (1 view); Complete Time: 13:28 snw 05/29 12:31 Order name: AMMONIA; Complete Time: 13:45 snw 05/29 12:31 Order name: Lipase; Complete Time: 13:33 snw 05/29 13:34 Order name: CT Abd/Pelvis - Without Contrast; Complete Time: 14:11 snw 05/29 15:23 Order name: Glucose, Ancillary Testing; Complete Time: 15:55 EDMS 05/29 12:31 Order name: EKG; Complete Time: 12:31 snw 05/29 12:31 Order name: Cardiac monitoring; Complete Time: 12:50 snw 05/29 12:31 Order name: EKG - Nurse/Tech; Complete Time: 13:26 snw 05/29 12:31 Order name: IV Saline Lock; Complete Time: 13:26 snw 05/29 12:31 Order name: Labs collected and sent; Complete Time: 13:27 snw 05/29 12:31 Order name: O2 Per Protocol; Complete Time: 13: snw 05/29 12:31 Order name: O2 Sat Monitoring; Complete Time: 13:27 snw 05/29 14:37 Order name: FSBS: at 1515; Complete Time: 15:18 snw 05/29 15:22 Order name: Misc. Order: finish ivf liter; Complete Time: 15:59 snw Administered Medications: 13:00 Drug: Phenergan 12.5 mg Route: IVP; Site: right forearm; em 13:40 Follow up: Response: No adverse reaction; Marked relief of symptoms; Nausea is decreasedem 13:02 Drug: fentaNYL (PF) 25 mcg Route: IVP; Site: right forearm; em 14:19 Follow up: Response: No adverse reaction; Marked relief of symptoms; Pain is unchanged, em physician notified; RASS: Alert and Calm (0) 13:14 Drug: NS 0.9% 1000 ml Route: IV; Rate: 75 ml/hr; Site: right forearm; em 14:15 Drug: Insulin Regular Human 5 units {Co-Signature: tw2 (Leslye Calderon RN).} Route: Sub-Q; em Site: right upper arm; 15:19 Follow up: Response: No adverse reaction; Blood sugar is lowered em 14:16 Drug: Insulin Regular Human 5 units {Co-Signature: tw2 (Leslye Calderon RN).} Route: IVP; em Site: right forearm; 15:19 Follow up: Response: No adverse reaction; Blood sugar is lowered em 14:54 Drug: NS 0.9% 500 ml Route: IV; Rate: bolus; Site: right forearm; em 16:00 Follow up: Response: No adverse reaction; IV Status: Completed infusion; IV Intake: em 500ml 14:59 Drug: fentaNYL (PF) 25 mcg Route: IVP; Site: right forearm; em 15:20 Follow up: Response: No adverse reaction; Marked relief of symptoms; Pain is decreased; em RASS: Alert and Calm (0) 15:59 Drug: cloNIDine 0.1 mg Route: PO; em 16:20 Follow up: Response: No adverse reaction em 16:00 Drug: Insulin Regular Human 5 units {Co-Signature: em (Ronnie Wilhelm RN).} Route: IVP; sg Site: right forearm; 16:20 Follow up: Response: No adverse reaction em Point of Care Testing: Blood Glucose: 15:15 Blood Glucose: 352 mg/dL; em Ranges: Critical Glucose Levels:Adult <50 mg/dl or >400 mg/dl <40 mg/dl or >180 mg/dl Disposition: 05/29/19 15:24 Discharged to Home. Impression: Unspecified abdominal pain, Unspecified cirrhosis of liver - mild, Diabetes mellitus due to underlying condition with hyperglycemia. - Condition is Stable. - Discharge Instructions: Abdominal Pain, Adult, Diabetes and Sick Day Management, Hypertension, Form - Daily Diabetes Record, Gastroparesis. - Prescriptions for Bentyl 20 mg Oral Tablet - take 1 tablet by ORAL route every 6 hours As needed; 20 tablet. promethazine 25 mg Oral Tablet - take 1 tablet by ORAL route every 6 hours As needed; 20 tablet. Miralax 17 gram/dose Oral - take 1 packet by ORAL route once daily dilute powder in 8 ounces of water or juice; 1 box. - Work release form, Medication Reconciliation Form, Thank You Letter, Antibiotic Education, Prescription Opioid Use form. - Follow up: Emergency Department; When: As needed; Reason: Worsening of condition. Follow up: Private Physician; When: 1 - 2 days; Reason: Recheck today's complaints, Continuance of care, Re-evaluation by your physician. - Problem is an acute exacerbation. - Symptoms have improved. Addendum: 05/31/2019 07:28 Co-signature as Attending Physician, Mohinder Tejada MD I agree with the assessment and c motta plan of care. Signatures: Dispatcher [employer] Loki Long RN Mohinder Miller MD MD cha Therrien, Shelly, POLICYHOLDER INFORMATION CLERK-C POLICYHOLDER INFORMATION CLERK-Csnw Ronnie Wilhelm RN RN em Julia Child RN RN Leslye Calderon RN tw2 Ronnie Wilhelm RN em Corrections: (The following items were deleted from the chart) 05/29 14:17 13:34 Ramos ordered. snw em 16:41 15:24 05/29/2019 15:24 Discharged to Home. Impression: Unspecified abdominal pain; em Unspecified cirrhosis of liver - mild; Diabetes mellitus due to underlying condition with hyperglycemia. Condition is Stable. Forms are Medication Reconciliation Form, Thank You Letter, Antibiotic Education, Prescription Opioid Use. Follow up: Emergency Department; When: As needed; Reason: Worsening of condition. Follow up: Private Physician; When: 1 - 2 days; Reason: Recheck today's complaints, Continuance of care, Re-evaluation by your physician. Problem is an acute exacerbation. Symptoms have improved. snw
[2019-05-29 17:46] VITALS: TEMP 97.9
[2019-05-29 17:52] VITALS: BP 161/103; O2SAT 100
--- NOTE | 2019-05-31 05:31 | EKG ---
Test Date: 2019-05-29 Test Time: 12:57:12 Pv Design And Installation Technician: JESSICA MEASUREMENT RESULTS: Intervals: Rate: 92 GA: 140 QRSD: 142 QT: 404 QTc: 499 [place]: P: 46 GA: 140 QRS: 124 T: 0 INTERPRETIVE STATEMENTS: Normal sinus rhythm Right bundle branch block Abnormal ECG Compared to ECG 05/17/2019 22:57:22 Sinus tachycardia no longer present Electronically Signed On 05-31-19 05:30:43 VETERANS' COORDINATOR by David Fabian
== END 2019-05-29 16:41 | disposition home or self-care (01) ==
LOC: ER 11:58
DX: K74.60 Unspecified cirrhosis of liver (principal); E08.65 Diabetes mellitus due to underlying condition with hyperglycemia; N19 Unspecified kidney failure; I10 Essential (primary) hypertension; I50.9 Heart failure, unspecified; G40.909 Epilepsy, unspecified, not intractable, without status epilepticus; Z79.4 Long term (current) use of insulin; Z88.5 Allergy status to narcotic agent; Z95.818 Presence of other cardiac implants and grafts
CPT/HCPCS: 96361; 93005; 85025; 80048; 36415; 82140; 83735; 85610; 82947; 80076; 84484; 83690; 83880; 74176; 71045; 96375; 96372; 96374; 99284; J2550; J3010 ×2; J7030

== ENCOUNTER 2019-06-05 01:15 | Inpatient (IN) | payer BC ==
--- OUTSIDE RECORDS SUMMARY | 2019-06-05 01:20 | XMS REPORT ---
:1965 Author Organization [facility] Address [address] [place] [address] Care Team Providers Name Role Phone BASHIR [...] (BEAKER) (test 119 mg/dL 70-110 TESTED AT [facility] [address] [place] [address] iemd=[id number]) [facility] [address] BASIC METABOLIC [id number] 06:16:00 Test Item Value Reference Range Comments SODIUM (BEAKER) (test 139 meq/L 136-145 ljxd=498) POTASSIUM (BEAKER) (test 4.5 meq/L 3.5-5.1 lxkk=205) CHLORIDE (BEAKER) (test 109 meq/L 98-107 cxvs=038) CO2 (BEAKER) (test 23 meq/L 22-29 zrzr=588) BLOOD UREA NITROGEN 30 mg/dL 7-21 (BEAKER) (test hfme=468) CREATININE (BEAKER) (test 1.87 mg/dL 0.57-1.25 qhfs=236) GLUCOSE RANDOM (BEAKER) 219 mg/dL 70-105 (test gheh=003) CALCIUM (BEAKER) (test 8.9 mg/dL 8.4-10.2 rkst=495) EGFR (BEAKER) (test 38 mL/min/1.73 sq m ESTIMATED GFR IS NOT fvzm=8491) ACCURATE CREATININE CLEARANCE IN PREDICTING GLOMERULAR FILTRATION RATE. ESTIMATED GFR IS NOT APPLICABLE FOR DIALYSIS PATIENTS. CBC W/PLT COUNT & AUTO [id number] 05:42:00 Test Item Value Reference Range Comments WHITE BLOOD CELL COUNT (BEAKER) (test bvqj=395) 4.1 K/ L 3.5-10.5 RED BLOOD CELL COUNT (BEAKER) (test sdlg=258) 3.72 M/ L 4.63-6.08 HEMOGLOBIN (BEAKER) (test nkfu=284) 11.6 GM/DL 13.7-17.5 HEMATOCRIT (BEAKER) (test jzcx=316) 33.6 % 40.1-51.0 MEAN CORPUSCULAR VOLUME (BEAKER) (test qecj=440) 90.3 fL 79.0-92.2 MEAN CORPUSCULAR HEMOGLOBIN (BEAKER) (test 31.2 pg 25.7-32.2 bvmr=065) MEAN CORPUSCULAR HEMOGLOBIN CONC (BEAKER) (test 34.5 GM/DL 32.3-36.5 tjsu=825) RED CELL DISTRIBUTION WIDTH (BEAKER) (test 13.7 % 11.6-14.4 qbmc=016) PLATELET COUNT (BEAKER) (test ljwo=380) 170 K/CU MM 150-450 MEAN PLATELET VOLUME (BEAKER) (test ruyb=608) 11.8 fL 9.4-12.4 NUCLEATED RED BLOOD CELLS (BEAKER) (test 0 /100 WBC 0-0 jeuz=700) NEUTROPHILS RELATIVE PERCENT (BEAKER) (test 53 % mkbw=313) LYMPHOCYTES RELATIVE PERCENT (BEAKER) (test 32 % ifpj=644) MONOCYTES RELATIVE PERCENT (BEAKER) (test 7 % trlz=636) EOSINOPHILS RELATIVE PERCENT (BEAKER) (test 6 % qxtz=584) BASOPHILS RELATIVE PERCENT (BEAKER) (test 1 % ysti=423) NEUTROPHILS ABSOLUTE COUNT (BEAKER) (test 2.17 K/ L 1.78-5.38 eodb=827) LYMPHOCYTES ABSOLUTE COUNT (BEAKER) (test 1.31 K/ L 1.32-3.57 frvb=402) MONOCYTES ABSOLUTE COUNT (BEAKER) (test 0.29 K/ L 0.30-0.82 wrac=742) EOSINOPHILS ABSOLUTE COUNT (BEAKER) (test 0.26 K/ L 0.04-0.54 cbei=395) BASOPHILS ABSOLUTE COUNT (BEAKER) (test 0.03 K/ L 0.01-0.08 nfak=148) IMMATURE GRANULOCYTES-RELATIVE PERCENT (BEAKER) 1 % 0-1 (test nusg=1448) POCT-GLUCOSE [id number] 20:34:00 Test Item Value Reference Range Comments POC-GLUCOSE METER (BEAKER) 205 mg/dL 70-110 TESTED AT [address] (test nltl=7170) [facility] [address] CT, CHEST, WITHOUT [id number] 18:24:00FINAL REPORT TECHNIQUE: CT scan of the [...] [place] Verified Date/Time: 01/10/2019 18:24:57 Reading Location: [facility] C013Y CT Body Reading Room POCT-GLUCOSE [id number] 17:31 :00 Test Item Value Reference Range Comments POC-GLUCOSE METER (BEAKER) 183 mg/dL 70-110 TESTED AT [address] (test abpu=0747) [facility] [address] CT, BRAIN, WITHOUT [id number] 14:47:00FINAL REPORT CT, BRAIN, WITHOUT CONTRAST INDICATION: [...] Lubna Lr MDReport Verified Date/Time: 01/10/2019 14:47:25 -[id number] 11:36:00 Test Item Value Reference Range Comments D-DIMER QUANTITATIVE (BEAKER) (test urkn=145) 2.14 MG/L FEU <0.50 Intended Use: The [...] within 95-100% range.RAD, CHEST, 1 VIEW, NON [id number] 08:17:00Reason for exam:->chest painShould this be performed [...] MDReport Verified Date/Time: 01/10/2019 08:17:19 Reading Location: [facility] B1 C013X Ortho Consult Reading Room TROPONIN [id number] 07:02:00 Test Item Value Reference Range Comments TROPONIN I (BEAKER) (test bsik=671) 0.02 ng/mL 0.00-0.03 Troponin I (TnI) levels [...] NATRIURETIC PEPTIDE (BEAKER) (test 130 pg/mL 0-100 nhug=696) BASIC METABOLIC [id number] 06:51:00 Test Item Value Reference Range Comments SODIUM (BEAKER) (test 137 meq/L 136-145 qkop=641) POTASSIUM (BEAKER) (test 4.3 meq/L 3.5-5.1 dsuo=921) CHLORIDE (BEAKER) (test 108 meq/L 98-107 nylm=619) CO2 (BEAKER) (test 21 meq/L 22-29 ituk=344) BLOOD UREA NITROGEN 34 mg/dL 7-21 (BEAKER) (test jwws=226) CREATININE (BEAKER) (test 2.00 mg/dL 0.57-1.25 gmrx=519) GLUCOSE RANDOM (BEAKER) 169 mg/dL 70-105 (test wubl=742) CALCIUM (BEAKER) (test 8.7 mg/dL 8.4-10.2 lrdv=331) EGFR (BEAKER) (test 35 mL/min/1.73 sq m ESTIMATED GFR IS NOT oxxg=2313) ACCURATE CREATININE CLEARANCE IN PREDICTING GLOMERULAR FILTRATION RATE. ESTIMATED GFR IS NOT APPLICABLE FOR DIALYSIS PATIENTS. CBC W/PLT COUNT & AUTO [id number] 06:27:00 Test Item Value Reference Range Comments WHITE BLOOD CELL COUNT (BEAKER) (test cpmr=525) 5.0 K/ L 3.5-10.5 RED BLOOD CELL COUNT (BEAKER) (test nobr=587) 3.44 M/ L 4.63-6.08 HEMOGLOBIN (BEAKER) (test snrx=957) 10.8 GM/DL 13.7-17.5 HEMATOCRIT (BEAKER) (test twvk=904) 31.5 % 40.1-51.0 MEAN CORPUSCULAR VOLUME (BEAKER) (test bqfl=966) 91.6 fL 79.0-92.2 MEAN CORPUSCULAR HEMOGLOBIN (BEAKER) (test 31.4 pg 25.7-32.2 cllm=511) MEAN CORPUSCULAR HEMOGLOBIN CONC (BEAKER) (test 34.3 GM/DL 32.3-36.5 hndk=149) RED CELL DISTRIBUTION WIDTH (BEAKER) (test 13.7 % 11.6-14.4 kari=979) PLATELET COUNT (BEAKER) (test cvuh=487) 146 K/CU MM 150-450 MEAN PLATELET VOLUME (BEAKER) (test jkzq=872) 12.1 fL 9.4-12.4 NUCLEATED RED BLOOD CELLS (BEAKER) (test 0 /100 WBC 0-0 tpsx=416) NEUTROPHILS RELATIVE PERCENT (BEAKER) (test 48 % fhuo=491) LYMPHOCYTES RELATIVE PERCENT (BEAKER) (test 37 % fecn=382) MONOCYTES RELATIVE PERCENT (BEAKER) (test 8 % esec=983) EOSINOPHILS RELATIVE PERCENT (BEAKER) (test 6 % xlud=338) BASOPHILS RELATIVE PERCENT (BEAKER) (test 1 % jxti=985) NEUTROPHILS ABSOLUTE COUNT (BEAKER) (test 2.42 K/ L 1.78-5.38 cmrp=258) LYMPHOCYTES ABSOLUTE COUNT (BEAKER) (test 1.83 K/ L 1.32-3.57 umsz=902) MONOCYTES ABSOLUTE COUNT (BEAKER) (test 0.40 K/ L 0.30-0.82 wnwr=414) EOSINOPHILS ABSOLUTE COUNT (BEAKER) (test 0.30 K/ L 0.04-0.54 vogx=840) BASOPHILS ABSOLUTE COUNT (BEAKER) (test 0.04 K/ L 0.01-0.08 tktw=489) IMMATURE GRANULOCYTES-RELATIVE PERCENT (BEAKER) 0 % 0-1 (test owvq=5573) TROPONIN [id number] 23:52:00 Test Item Value Reference Range Comments TROPONIN I (BEAKER) (test nzwg=849) 0.03 ng/mL 0.00-0.03 Troponin I (TnI) levels [...] acidosis, acute neurological disease, and persistent tachyarrhythmia.POCT-GLUCOSE [id number] 22:03:00 Test Item Value Reference Range Comments POC-GLUCOSE METER (BEAKER) 315 mg/dL 70-110 TESTED AT [address] (test qapt=0779) [facility] [address] POCT-GLUCOSE [id number] 20:02:00 Test Item Value Reference Range Comments POC-GLUCOSE METER (BEAKER) 250 mg/dL 70-110 TESTED AT [address] (test cavb=8796) [place] [address] TROPONIN [id number] 19:05:00 Test Item Value Reference Range Comments TROPONIN I (BEAKER) (test qvtp=636) 0.04 ng/mL 0.00-0.03 Troponin I (TnI) levels [...] acidosis, acute neurological disease, and persistent tachyarrhythmia.POCT-GLUCOSE [id number] 17:40:00 Test Item Value Reference Range Comments POC-GLUCOSE METER (BEAKER) 246 mg/dL 70-110 TESTED AT [facility] [address] [facility] (test qujz=8796) [facility] [address] POCT-GLUCOSE [id number] 08:11:00 Test Item Value Reference Range Comments POC-GLUCOSE METER (BEAKER) 243 mg/dL 70-110 TESTED AT [facility] [address] [facility] (test qqay=7577) [facility] [address] BASIC METABOLIC [id number] 05:04:00 Test Item Value Reference Range Comments SODIUM (BEAKER) (test 138 meq/L 136-145 gbwf=572) POTASSIUM (BEAKER) (test 4.5 meq/L 3.5-5.1 lcgb=755) CHLORIDE (BEAKER) (test 110 meq/L 98-107 uhmy=470) CO2 (BEAKER) (test 22 meq/L 22-29 xzwb=961) BLOOD UREA NITROGEN 34 mg/dL 7-21 (BEAKER) (test ycru=712) CREATININE (BEAKER) (test 2.01 mg/dL 0.57-1.25 cusw=024) GLUCOSE RANDOM (BEAKER) 243 mg/dL 70-105 (test gtyu=014) CALCIUM (BEAKER) (test 8.5 mg/dL 8.4-10.2 gqnv=613) EGFR (BEAKER) (test 35 mL/min/1.73 sq m ESTIMATED GFR IS NOT xtog=0603) ACCURATE CREATININE CLEARANCE IN PREDICTING GLOMERULAR FILTRATION RATE. ESTIMATED GFR IS NOT APPLICABLE FOR DIALYSIS PATIENTS. [id number] 04:56:00 Test Item Value Reference Range Comments PARTIAL THROMBOPLASTIN TIME (BEAKER) (test 35.0 seconds 22.5-36.0 pypg=620) CBC W/PLT COUNT & AUTO [id number] 04:48:00 Test Item Value Reference Range Comments WHITE BLOOD CELL COUNT (BEAKER) (test txdp=183) 4.9 K/ L 3.5-10.5 RED BLOOD CELL COUNT (BEAKER) (test oylv=587) 3.36 M/ L 4.63-6.08 HEMOGLOBIN (BEAKER) (test fzdu=494) 10.5 GM/DL 13.7-17.5 HEMATOCRIT (BEAKER) (test vcmb=419) 30.5 % 40.1-51.0 MEAN CORPUSCULAR VOLUME (BEAKER) (test bnln=052) 90.8 fL 79.0-92.2 MEAN CORPUSCULAR HEMOGLOBIN (BEAKER) (test 31.3 pg 25.7-32.2 tsbp=926) MEAN CORPUSCULAR HEMOGLOBIN CONC (BEAKER) (test 34.4 GM/DL 32.3-36.5 kswi=919) RED CELL DISTRIBUTION WIDTH (BEAKER) (test 13.5 % 11.6-14.4 aktz=866) PLATELET COUNT (BEAKER) (test dqrh=532) 116 K/CU MM 150-450 MEAN PLATELET VOLUME (BEAKER) (test ziiz=344) 11.9 fL 9.4-12.4 NUCLEATED RED BLOOD CELLS (BEAKER) (test 0 /100 WBC 0-0 uqkx=957) NEUTROPHILS RELATIVE PERCENT (BEAKER) (test 52 % xlhy=008) LYMPHOCYTES RELATIVE PERCENT (BEAKER) (test 36 % ynvk=665) MONOCYTES RELATIVE PERCENT (BEAKER) (test 8 % bdoy=322) EOSINOPHILS RELATIVE PERCENT (BEAKER) (test 4 % cmtv=196) BASOPHILS RELATIVE PERCENT (BEAKER) (test 0 % sptf=666) NEUTROPHILS ABSOLUTE COUNT (BEAKER) (test 2.51 K/ L 1.78-5.38 cklq=205) LYMPHOCYTES ABSOLUTE COUNT (BEAKER) (test 1.74 K/ L 1.32-3.57 bhgk=025) MONOCYTES ABSOLUTE COUNT (BEAKER) (test 0.38 K/ L 0.30-0.82 wjfw=299) EOSINOPHILS ABSOLUTE COUNT (BEAKER) (test 0.18 K/ L 0.04-0.54 bppk=414) BASOPHILS ABSOLUTE COUNT (BEAKER) (test 0.02 K/ L 0.01-0.08 gneq=952) IMMATURE GRANULOCYTES-RELATIVE PERCENT (BEAKER) 1 % 0-1 (test ymqc=8195) POCT-GLUCOSE [id number] 22:08:00 Test Item Value Reference Range Comments POC-GLUCOSE METER (BEAKER) 364 mg/dL 70-110 Notified HAYLEE BOSS/TESTED AT [facility] (test hqfl=4182) [address] [facility] [address] POCT-GLUCOSE [id number] 17:05:00 Test Item Value Reference Range Comments POC-GLUCOSE METER (BEAKER) 389 mg/dL 70-110 Notified HAYLEE BOSS/TESTED AT [facility] (test shsb=4694) [address] [facility] [address] BASIC METABOLIC [id number] 16:28:00 Test Item Value Reference Range Comments SODIUM (BEAKER) (test 136 meq/L 136-145 wwky=103) POTASSIUM (BEAKER) (test 4.7 meq/L 3.5-5.1 vpnq=423) CHLORIDE (BEAKER) (test 107 meq/L 98-107 gdag=246) CO2 (BEAKER) (test 23 meq/L 22-29 wapk=767) BLOOD UREA NITROGEN 35 mg/dL 7-21 (BEAKER) (test qvpk=338) CREATININE (BEAKER) (test 2.22 mg/dL 0.57-1.25 jsff=657) GLUCOSE RANDOM (BEAKER) 358 mg/dL 70-105 (test egeb=410) CALCIUM (BEAKER) (test 8.7 mg/dL 8.4-10.2 ntam=313) EGFR (BEAKER) (test 31 mL/min/1.73 sq m ESTIMATED GFR IS NOT jqhh=2730) ACCURATE CREATININE CLEARANCE IN PREDICTING GLOMERULAR FILTRATION RATE. ESTIMATED GFR IS NOT APPLICABLE FOR DIALYSIS PATIENTS. [id number] 16:26:00 Test Item Value Reference Range Comments PROTIME (BEAKER) (test ulkh=438) 13.4 seconds 11.9-14.2 INR (BEAKER) (test pdel=243) 1.1 <=5.9 PARTIAL THROMBOPLASTIN TIME (BEAKER) (test 32.0 seconds 22.5-36.0 iniw=442) Effective 09/23/2018: PT Reference Range ChangeNew: 11.9-14.2 Previous: 11.7- 14.7RECOMMENDED COUMADIN/WARFARIN INR THERAPY RANGESSTANDARD DOSE: 2.0-3.0 Includes: PROPHYLAXIS for venous thrombosis, systemic embolization; TREATMENT for venous thrombosis and/or pulmonary embolus.HIGH RISK: Target INR is2.5-3.5 for patients wiht mechanical heart valves.[id number] 16:26:00 Test Item Value Reference Range Comments PARTIAL THROMBOPLASTIN TIME (BEAKER) (test 32.0 seconds 22.5-36.0 kjcz=725) POCT-GLUCOSE [id number] 12:06:00 Test Item Value Reference Range Comments POC-GLUCOSE METER (BEAKER) 321 mg/dL 70-110 Notified HAYLEE BOSS/TESTED AT [facility] (test poxc=5207) [address] [facility] [address] POCT-GLUCOSE [id number] 08:29:00 Test Item Value Reference Range Comments POC-GLUCOSE METER (BEAKER) 263 mg/dL 70-110 TESTED AT [place] [address] [facility] (test vgtw=2096) [facility] [address] [id number] 04:54:00 Test Item Value Reference Range Comments PARTIAL THROMBOPLASTIN TIME (BEAKER) (test 31.0 seconds 22.5-36.0 aqge=146) CBC W/PLT COUNT & AUTO [id number] 04:43:00 Test Item Value Reference Range Comments WHITE BLOOD CELL COUNT (BEAKER) (test gyay=968) 6.6 K/ L 3.5-10.5 RED BLOOD CELL COUNT (BEAKER) (test snrp=499) 3.45 M/ L 4.63-6.08 HEMOGLOBIN (BEAKER) (test lnpm=318) 10.9 GM/DL 13.7-17.5 HEMATOCRIT (BEAKER) (test mqli=919) 30.8 % 40.1-51.0 MEAN CORPUSCULAR VOLUME (BEAKER) (test mwnm=846) 89.3 fL 79.0-92.2 MEAN CORPUSCULAR HEMOGLOBIN (BEAKER) (test 31.6 pg 25.7-32.2 ieuy=798) MEAN CORPUSCULAR HEMOGLOBIN CONC (BEAKER) (test 35.4 GM/DL 32.3-36.5 qzrd=755) RED CELL DISTRIBUTION WIDTH (BEAKER) (test 13.5 % 11.6-14.4 wzwo=139) PLATELET COUNT (BEAKER) (test ndzp=402) 138 K/CU MM 150-450 MEAN PLATELET VOLUME (BEAKER) (test fqet=284) 12.3 fL 9.4-12.4 NUCLEATED RED BLOOD CELLS (BEAKER) (test 0 /100 WBC 0-0 ixmc=860) NEUTROPHILS RELATIVE PERCENT (BEAKER) (test 64 % lgig=116) LYMPHOCYTES RELATIVE PERCENT (BEAKER) (test 24 % dkup=742) MONOCYTES RELATIVE PERCENT (BEAKER) (test 8 % dnmq=260) EOSINOPHILS RELATIVE PERCENT (BEAKER) (test 3 % hjgz=658) BASOPHILS RELATIVE PERCENT (BEAKER) (test 1 % oqno=432) NEUTROPHILS ABSOLUTE COUNT (BEAKER) (test 4.22 K/ L 1.78-5.38 arty=251) LYMPHOCYTES ABSOLUTE COUNT (BEAKER) (test 1.54 K/ L 1.32-3.57 cgeq=864) MONOCYTES ABSOLUTE COUNT (BEAKER) (test 0.53 K/ L 0.30-0.82 xlui=386) EOSINOPHILS ABSOLUTE COUNT (BEAKER) (test 0.20 K/ L 0.04-0.54 czvc=294) BASOPHILS ABSOLUTE COUNT (BEAKER) (test 0.03 K/ L 0.01-0.08 rpun=071) IMMATURE GRANULOCYTES-RELATIVE PERCENT (BEAKER) 1 % 0-1 (test ulzd=0281) POCT-GLUCOSE [id number] 22:11:00 Test Item Value Reference Range Comments POC-GLUCOSE METER (BEAKER) 319 mg/dL 70-110 Notified HAYLEE BOSS/TESTED AT [facility] (test nqzb=3800) [address] [place] [address] [id number] 20:11:00 Test Item Value Reference Range Comments PARTIAL THROMBOPLASTIN TIME (BEAKER) (test 33.3 seconds 22.5-36.0 kqii=169) POCT-GLUCOSE [id number] 18:49:00 Test Item Value Reference Range Comments POC-GLUCOSE METER (BEAKER) 309 mg/dL 70-110 TESTED AT [address] (test cops=0895) [place] [address] POCT-GLUCOSE [id number] 14:48:00 Test Item Value Reference Range Comments POC-GLUCOSE METER (BEAKER) 161 mg/dL 70-110 TESTED AT [address] (test jzjr=8572) [place] [address] POCT-GLUCOSE [id number] 14:46:00 Test Item Value Reference Range Comments POC-GLUCOSE METER (BEAKER) 159 mg/dL 70-110 TESTED AT [address] (test rgtt=2992) [place] [address] TROPONIN [id number] 13:58:00 Test Item Value Reference Range Comments TROPONIN I (BEAKER) (test ebom=668) < ng/mL 0.00-0.03 Troponin I (TnI) levels [...] failure, acidosis, acute neurological disease, and persistent tachyarrhythmia.[id number] 12:25:00 Test Item Value Reference Range Comments PARTIAL THROMBOPLASTIN TIME (BEAKER) (test 30.3 seconds 22.5-36.0 chip=105) POCT-GLUCOSE [id number] 12:18:00 Test Item Value Reference Range Comments POC-GLUCOSE METER (BEAKER) 168 mg/dL 70-110 TESTED AT [address] (test oqbb=8722) [place] [address] POCT-GLUCOSE [id number] 11:06:00 Test Item Value Reference Range Comments POC-GLUCOSE METER (BEAKER) 180 mg/dL 70-110 TESTED AT [address] (test ewuj=0344) [place] [address] POCT-GLUCOSE [id number] 10:21:00 Test Item Value Reference Range Comments POC-GLUCOSE METER (BEAKER) 195 mg/dL 70-110 TESTED AT [address] (test qnqj=1788) [place] [address] POCT-GLUCOSE [id number] 10:21:00 Test Item Value Reference Range Comments POC-GLUCOSE METER (BEAKER) 180 mg/dL 70-110 TESTED AT [address] (test lyfw=0146) [facility] [address] POCT-GLUCOSE [id number] 08:06:00 Test Item Value Reference Range Comments POC-GLUCOSE METER (BEAKER) 218 mg/dL 70-110 TESTED AT [address] (test yvuz=6105) [place] [address] TROPONIN [id number] 07:00:00 Test Item Value Reference Range Comments TROPONIN I (BEAKER) (test ctfy=633) 0.01 ng/mL 0.00-0.03 Troponin I (TnI) levels [...] afterwardsOnce on admission and Daily AM afterwardsPOCT-GLUCOSE [id number] 06:58:00 Test Item Value Reference Range Comments POC-GLUCOSE METER (BEAKER) 248 mg/dL 70-110 TESTED AT [facility] [address] [facility] (test ocud=8945) [facility] [address] [id number] 06:54:00 Test Item Value Reference Range Comments PHOSPHORUS (BEAKER) (test nosb=338) 2.5 mg/dL 2.3-4.7 Once on admission and Daily AM afterwardsOnce on admission and Daily AM afterwardsOnce on admission and Daily AM [id number] 06:54:00 Test Item Value Reference Range Comments MAGNESIUM (BEAKER) (test vara=640) 2.2 mg/dL 1.6-2.6 Once on admission and Daily AM afterwardsOnce on admission and Daily AM afterwardsOnce on admission and Daily AM afterwardsBASIC METABOLIC [id number] 06:54:00 Test Item Value Reference Range Comments SODIUM (BEAKER) (test 137 meq/L 136-145 acoz=845) POTASSIUM (BEAKER) (test 4.4 meq/L 3.5-5.1 andt=528) CHLORIDE (BEAKER) (test 111 meq/L 98-107 yrhi=549) CO2 (BEAKER) (test 22 meq/L 22-29 jqfp=248) BLOOD UREA NITROGEN 37 mg/dL 7-21 (BEAKER) (test hdew=403) CREATININE (BEAKER) (test 1.93 mg/dL 0.57-1.25 zfrh=156) GLUCOSE RANDOM (BEAKER) 253 mg/dL 70-105 (test dbjd=962) CALCIUM (BEAKER) (test 8.1 mg/dL 8.4-10.2 rilo=854) EGFR (BEAKER) (test 37 mL/min/1.73 sq m ESTIMATED GFR IS NOT rpqf=2933) ACCURATE CREATININE CLEARANCE IN PREDICTING GLOMERULAR FILTRATION RATE. ESTIMATED GFR IS NOT APPLICABLE FOR DIALYSIS PATIENTS. Once on admission and Daily AM afterwardsOnce on admission and Daily AM afterwardsOnce on admission and Daily AM afterwardsCBC W/PLT COUNT & AUTO [id number] 06:42:00 Test Item Value Reference Range Comments WHITE BLOOD CELL COUNT (BEAKER) (test pqio=578) 4.8 K/ L 3.5-10.5 RED BLOOD CELL COUNT (BEAKER) (test tnqg=446) 3.50 M/ L 4.63-6.08 HEMOGLOBIN (BEAKER) (test hodz=107) 11.0 GM/DL 13.7-17.5 HEMATOCRIT (BEAKER) (test ibli=359) 31.7 % 40.1-51.0 MEAN CORPUSCULAR VOLUME (BEAKER) (test ugce=260) 90.6 fL 79.0-92.2 MEAN CORPUSCULAR HEMOGLOBIN (BEAKER) (test 31.4 pg 25.7-32.2 nrmw=899) MEAN CORPUSCULAR HEMOGLOBIN CONC (BEAKER) (test 34.7 GM/DL 32.3-36.5 lrqm=305) RED CELL DISTRIBUTION WIDTH (BEAKER) (test 13.5 % 11.6-14.4 siuc=229) PLATELET COUNT (BEAKER) (test fgwp=956) 118 K/CU MM 150-450 MEAN PLATELET VOLUME (BEAKER) (test nkcf=145) 12.1 fL 9.4-12.4 NUCLEATED RED BLOOD CELLS (BEAKER) (test 0 /100 WBC 0-0 smya=191) NEUTROPHILS RELATIVE PERCENT (BEAKER) (test 42 % umsy=594) LYMPHOCYTES RELATIVE PERCENT (BEAKER) (test 46 % qxfk=792) MONOCYTES RELATIVE PERCENT (BEAKER) (test 7 % tshs=982) EOSINOPHILS RELATIVE PERCENT (BEAKER) (test 4 % ctvm=039) BASOPHILS RELATIVE PERCENT (BEAKER) (test 1 % qosv=636) NEUTROPHILS ABSOLUTE COUNT (BEAKER) (test 2.00 K/ L 1.78-5.38 ihqa=894) LYMPHOCYTES ABSOLUTE COUNT (BEAKER) (test 2.22 K/ L 1.32-3.57 zyhq=892) MONOCYTES ABSOLUTE COUNT (BEAKER) (test 0.34 K/ L 0.30-0.82 cozu=220) EOSINOPHILS ABSOLUTE COUNT (BEAKER) (test 0.20 K/ L 0.04-0.54 wlvb=501) BASOPHILS ABSOLUTE COUNT (BEAKER) (test 0.04 K/ L 0.01-0.08 jrec=489) IMMATURE GRANULOCYTES-RELATIVE PERCENT (BEAKER) 1 % 0-1 (test aueg=9863) [id number] 06:28:00 Test Item Value Reference Range Comments PARTIAL THROMBOPLASTIN TIME (BEAKER) (test 30.6 seconds 22.5-36.0 zief=414) POCT-GLUCOSE [id number] 06:01:00 Test Item Value Reference Range Comments POC-GLUCOSE METER (BEAKER) 266 mg/dL 70-110 TESTED AT [address] (test byoc=7222) [place] [id number] POCT-GLUCOSE [id number] 04:57:00 Test Item Value Reference Range Comments POC-GLUCOSE METER (BEAKER) 271 mg/dL 70-110 TESTED AT [address] (test togu=0474) [facility] [address] POCT-GLUCOSE [id number] 04:05:00 Test Item Value Reference Range Comments POC-GLUCOSE METER (BEAKER) 308 mg/dL 70-110 Notified HAYLEE BOSS/TESTED AT [facility] (test unsb=9545) [address] [place] [address] POCT-GLUCOSE [id number] 02:57:00 Test Item Value Reference Range Comments POC-GLUCOSE METER (BEAKER) 343 mg/dL 70-110 Notified HAYLEE BOSS/TESTED AT [facility] (test vwtn=2774) [address] [place] [address] RAD, CHEST, 1 VIEW, NON [id number] 02:27:00Reason for exam:->mediastinal wideningShould this be performed [...] Wilmer Kline Verified Date/Time: 01/07/2019 02:27:45 POCT-GLUCOSE [id number] 01:57:00 Test Item Value Reference Range Comments POC-GLUCOSE METER (BEAKER) 369 mg/dL 70-110 TESTED AT [address] (test jeob=9851) [place] [id number] POCT-GLUCOSE [id number] 01:06:00 Test Item Value Reference Range Comments POC-GLUCOSE METER (BEAKER) 395 mg/dL 70-110 Notified HAYLEE BOSS/TESTED AT [facility] (test wfck=5002) [address] [place] [address] TROPONIN [id number] 00:36:00 Test Item Value Reference Range Comments TROPONIN I (BEAKER) (test zbno=243) 0.01 ng/mL 0.00-0.03 Troponin I (TnI) levels [...] NATRIURETIC PEPTIDE (BEAKER) (test 151 pg/mL 0-100 drcl=966) [id number] 00:19:00 Test Item Value Reference Range Comments PARTIAL THROMBOPLASTIN TIME (BEAKER) (test 28.2 seconds 22.5-36.0 qwtz=200) Prior to initiating heparinPOCT-GLUCOSE [id number] 00:16:00 Test Item Value Reference Range Comments POC-GLUCOSE METER (BEAKER) 413 mg/dL 70-110 TESTED AT [address] (test gsyr=7724) [place] [id number] POCT-GLUCOSE [id number] 23:10:00 Test Item Value Reference Range Comments POC-GLUCOSE METER (BEAKER) 452 mg/dL 70-110 Notified HAYLEE BOSS/TESTED AT [facility] (test udmb=9128) [address] [facility] [address] POCT-GLUCOSE [id number] 22:06:00 Test Item Value Reference Range Comments POC-GLUCOSE METER (BEAKER) 383 mg/dL 70-110 TESTED AT [facility] [address] (test hrie=4507) [facility] [address] CT, BRAIN, WITHOUT [id number] 21:38:00FINAL REPORT CT Head without contrast CLINICAL [...] by: WILMER KLINE MD on 02/2019 09:38 [facility] [id number] 21:12:00 Test Item Value Reference Range Comments SODIUM (BEAKER) (test 134 meq/L 136-145 mrsn=280) POTASSIUM (BEAKER) (test 4.9 meq/L 3.5-5.1 Specimen slightly riuh=442) hemolyzed CHLORIDE (BEAKER) (test 107 meq/L 98-107 jvgu=474) CO2 (BEAKER) (test 19 meq/L 22-29 onxh=381) BLOOD UREA NITROGEN 36 mg/dL 7-21 (BEAKER) (test jjak=304) CREATININE (BEAKER) (test 1.95 mg/dL 0.57-1.25 Specimen slightly gbnk=226) hemolyzed GLUCOSE RANDOM (BEAKER) 311 mg/dL 70-105 (test vyuy=895) CALCIUM (BEAKER) (test 8.5 mg/dL 8.4-10.2 knry=616) EGFR (BEAKER) (test 36 mL/min/1.73 sq m ESTIMATED GFR IS NOT tzzk=0742) ACCURATE CREATININE CLEARANCE IN PREDICTING GLOMERULAR FILTRATION RATE. ESTIMATED GFR IS NOT APPLICABLE FOR DIALYSIS PATIENTS. HEMOGLOBIN [id number] 20:17:00 Test Item Value Reference Range Comments HEMOGLOBIN A1C (BEAKER) (test ewat=576) 11.9 % 4.3-6.1 TROPONIN [id number] 19:52:00 Test Item Value Reference Range Comments TROPONIN I (BEAKER) (test xdbe=841) < ng/mL 0.00-0.03 Troponin I (TnI) levels [...] acute neurological disease, and persistent tachyarrhythmia.HEPATIC FUNCTION [id number] 19:46: 00 Test Item Value Reference Range Comments TOTAL PROTEIN (BEAKER) (test 6.3 gm/dL 6.0-8.3 Specimen slightly hemolyzed xkdx=004) ALBUMIN (BEAKER) (test 2.8 g/dL 3.5-5.0 Specimen slightly hemolyzed vnot=8280) BILIRUBIN TOTAL (BEAKER) (test 0.4 mg/dL 0.2-1.2 Specimen slightly hemolyzed bonu=832) BILIRUBIN DIRECT (BEAKER) (test 0.1 mg/dL 0.1-0.5 Specimen slightly hemolyzed aixg=872) ALKALINE PHOSPHATASE (BEAKER) 104 U/L 40-150 (test ebfk=535) AST (SGOT) (BEAKER) (test 29 U/L 5-34 Specimen slightly hemolyzed nwuc=251) ALT (SGPT) (BEAKER) (test 23 U/L 6-55 Specimen slightly hemolyzed xgev=129) Specimen moderately [id number] 19:32:00 Test Item Value Reference Range Comments PARTIAL THROMBOPLASTIN TIME (BEAKER) (test 28.1 seconds 22.5-36.0 lzvu=648) PROTHROMBIN TIME/[id number] 19:31:00 Test Item Value Reference Range Comments PROTIME (BEAKER) (test ixrf=627) 11.4 seconds 11.9-14.2 INR (BEAKER) (test tifv=809) 0.9 <=5.9 Effective 09/23/2018: PT Reference Range ChangeNew: 11.9-14.2 Previous: 11.7- 14.7RECOMMENDED COUMADIN/WARFARIN INR THERAPY RANGESSTANDARD DOSE: 2.0-3.0 Includes: PROPHYLAXIS for venous thrombosis, systemic embolization; TREATMENT for venous thrombosis and/or pulmonary embolus.HIGH RISK: Target INR is2.5-3.5 for patients wiht mechanical heart valves.CBC W/PLT COUNT & AUTO [id number] 19:25:00 Test Item Value Reference Range Comments WHITE BLOOD CELL COUNT (BEAKER) (test krnh=889) 5.2 K/ L 3.5-10.5 RED BLOOD CELL COUNT (BEAKER) (test vjvb=934) 3.84 M/ L 4.63-6.08 HEMOGLOBIN (BEAKER) (test caad=162) 12.2 GM/DL 13.7-17.5 HEMATOCRIT (BEAKER) (test koof=636) 34.6 % 40.1-51.0 MEAN CORPUSCULAR VOLUME (BEAKER) (test eybp=931) 90.1 fL 79.0-92.2 MEAN CORPUSCULAR HEMOGLOBIN (BEAKER) (test 31.8 pg 25.7-32.2 ydrx=483) MEAN CORPUSCULAR HEMOGLOBIN CONC (BEAKER) (test 35.3 GM/DL 32.3-36.5 qume=237) RED CELL DISTRIBUTION WIDTH (BEAKER) (test 13.6 % 11.6-14.4 xaxk=135) PLATELET COUNT (BEAKER) (test qwjy=975) 140 K/CU MM 150-450 MEAN PLATELET VOLUME (BEAKER) (test xbti=400) 11.8 fL 9.4-12.4 NUCLEATED RED BLOOD CELLS (BEAKER) (test 0 /100 WBC 0-0 kkxv=446) NEUTROPHILS RELATIVE PERCENT (BEAKER) (test 54 % zwdm=560) LYMPHOCYTES RELATIVE PERCENT (BEAKER) (test 36 % ezxs=060) MONOCYTES RELATIVE PERCENT (BEAKER) (test 5 % uyko=667) EOSINOPHILS RELATIVE PERCENT (BEAKER) (test 3 % spys=914) BASOPHILS RELATIVE PERCENT (BEAKER) (test 1 % wvqt=777) NEUTROPHILS ABSOLUTE COUNT (BEAKER) (test 2.82 K/ L 1.78-5.38 tsoo=168) LYMPHOCYTES ABSOLUTE COUNT (BEAKER) (test 1.89 K/ L 1.32-3.57 fhwn=019) MONOCYTES ABSOLUTE COUNT (BEAKER) (test 0.28 K/ L 0.30-0.82 ohen=104) EOSINOPHILS ABSOLUTE COUNT (BEAKER) (test 0.17 K/ L 0.04-0.54 zosn=848) BASOPHILS ABSOLUTE COUNT (BEAKER) (test 0.04 K/ L 0.01-0.08 cvff=251) IMMATURE GRANULOCYTES-RELATIVE PERCENT (BEAKER) 1 % 0-1 (test ysig=5775) POCT-GLUCOSE [id number] 17:51:00 Test Item Value Reference Range Comments POC-GLUCOSE METER (BEAKER) 342 mg/dL 70-110 Notified HAYLEE BOSS/TESTED AT [facility] (test cbfo=9728) [id number] [facility] [id number]
[2019-06-05] MEDS ORDERED: FENTANYL CITR 100 MCG/2 ML ONE ×3 (02:31→04:20)
[2019-06-05] MEDS ORDERED: ONDANSETRON 4 MG/2 ML VIAL ONE (02:31)
[2019-06-05] MEDS ORDERED: NA CHLORIDE 0.9% 1,000 ML ONE (02:31)
[2019-06-05 02:51] LABS: Absolute Lymphocytes (CBC) 1.3 K/uL (0.7-4.9); Basophils % 1.3 % (0-1.3); Hematocrit 44.4 % (39.6-49.0); Lymphocytes % 16.8 % (15.3-44.8); MPV 11.3 fL (7.6-11.3); RBC Red Blood Cell Count 4.96 M/uL (4.33-5.43)
[2019-06-05 02:59] LABS: Protime INR 0.89
[2019-06-05 03:44] LABS: ALT/SGPT 20 U/L (12-78); AST/SGOT 17 U/L (15-37); Albumin 2.6 g/dL (3.4-5.0); Alkaline Phosphatase 148 U/L (45-117); BUN Blood Urea Nitrogen 31 mg/dL (7-18); Bicarbonate 17 mmol/L (21-32); Bilirubin Direct < 0.1 mg/dL (0-0.2); Bilirubin Total 0.3 mg/dL (0.2-1.0); Lipase 394 U/L (73-393); Magnesium 2.1 mg/dL (1.8-2.4); NT PRO-BNP 577 pg/mL (<125); Potassium 4.2 mmol/L (3.5-5.1); Protein, Total 6.9 g/dL (6.4-8.2); Sodium Level 133 mmol/L (136-145); Troponin (Emerg Dept Use Only) < 0.02 ng/mL (0.0-0.045)
[2019-06-05 03:45] LABS: Glucose Level 529 mg/dL (74-106)
[2019-06-05] MEDS ORDERED: FAMOTIDINE 20 MG/2 ML VIAL IV ONE (03:48)
[2019-06-05] MEDS ORDERED: INSULIN -REGULAR HUMAN 50 UNIT/0.5 ML ML ONE ×2 (03:55→05:30)
--- NOTE | 2019-06-05 04:08 | EDPHYS ---
Physician Documentation [facility] Name: Wero Kwong Sr Age: 53 yrs Sex: Male : 1965 Arrival Date: 06/05/2019 Time: 01:20 Bed 5 Private MD: CYRUS Physician Mohinder Tejada HPI: 06/05 02:53 This 53 yrs old Male presents to ER via Wheelchair with complaints of vanessa Abdominal Pain, Nausea, Diarrhea. 02:53 The patient presents to the emergency department with nausea, vomiting, abdominal pain, vanessa of the right upper quadrant and left upper quadrant. Onset: The symptoms/episode began/occurred 3 day(s) ago. Possible causes: unknown. The symptoms are alleviated by. Associated signs and symptoms: The patient has no apparent associated signs or symptoms. Severity of symptoms: At their worst the symptoms were mild moderate in the emergency department the symptoms are unchanged. The patient has experienced similar episodes in the past, a few times. Historical: - Allergies: 02:00 Codeine; rr5 02:00 Hydrocodone-Acetaminophen; rr5 02:00 Morphine; rr5 - Home Meds: 06:08 acetazolamide 500 mg Oral cpER 1 cap 2 times per day [Active]; citalopram 20 mg tab 1 rr5 tab once daily [Active]; clopidogrel 75 mg Oral tab 1 tab once daily [Active]; furosemide 40 mg Oral tab 1 tab 2 times per day [Active]; gabapentin 300 mg Oral cap 3 caps twice a day [Active]; Humulin 70/30 100 unit/mL (70-30) Sub-Q susp [Active]; levetiracetam 500 mg Oral tab 1 tab 2 times per day [Active]; lisinopril 10 mg Oral tab 1 tab once daily [Active]; spironolactone 25 mg Oral tab nightly [Active]; simvastatin 40 mg Oral tab 1 tab once daily [Active]; travatan eye drops [Active]; - PMHx: 02:00 CAD; CHF; Cirrhosis; CVA; Diabetes - IDDM; High Cholesterol; Hypertension; kidney rr5 failure; Myocardial infarction; neuropathy; Seizures; - PSHx: 02:00 Heart stents; Cholecystectomy; rr5 - Immunization history:: Adult Immunizations up to date. - Coronavirus screen:: The patient has NOT traveled to [place], [place], or [place] in the past 14 days. - Social history:: Smoking status: Patient reports the use of cigarette tobacco products, 7 sticks per day. - Family history:: not pertinent. - Ebola Screening: : Patient negative for fever greater than or equal to 101.5 degrees Fahrenheit, and additional compatible Ebola Virus Disease symptoms Patient denies exposure to infectious person Patient denies travel to an Ebola-affected area in the 21 days before illness onset. ROS: 02:53 Constitutional: Negative for fever, chills, and weight loss, Eyes: Negative for injury, vanessa pain, redness, and discharge, ENT: Negative for injury, pain, and discharge, Neck: Negative for injury, pain, and swelling, Cardiovascular: Negative for chest pain, palpitations, and edema, Respiratory: Negative for shortness of breath, cough, wheezing, and pleuritic chest pain, Back: Negative for injury and pain, : Negative for injury, bleeding, discharge, and swelling, MS/Extremity: Negative for injury and deformity, Skin: Negative for injury, rash, and discoloration, Neuro: Negative for headache, weakness, numbness, tingling, and seizure. 02:53 Abdomen/GI: Positive for nausea, vomiting, diarrhea, of the right upper quadrant and left upper quadrant. Exam: 02:53 Constitutional: This is a well developed, well nourished patient who is awake, alert, vanessa and in no acute distress. Head/Face: Normocephalic, atraumatic. Eyes: Pupils equal round and reactive to light, extra-ocular motions intact. Lids and lashes normal. Conjunctiva and sclera are non-icteric and not injected. Cornea within normal limits. Periorbital areas with no swelling, redness, or edema. ENT: Nares patent. No nasal discharge, no septal abnormalities noted. Tympanic membranes are normal and external auditory canals are clear. Oropharynx with no redness, swelling, or masses, exudates, or evidence of obstruction, uvula midline. Mucous membranes moist. Neck: Trachea midline, no thyromegaly or masses palpated, and no cervical lymphadenopathy. Supple, full range of motion without nuchal rigidity, or vertebral point tenderness. No Meningismus. Chest/axilla: Normal chest wall appearance and motion. Nontender with no deformity. No lesions are appreciated. Cardiovascular: Regular rate and rhythm with a normal S1 and S2. No gallops, murmurs, or rubs. Normal PMI, no JVD. No pulse deficits. Respiratory: Lungs have equal breath sounds bilaterally, clear to auscultation and percussion. No rales, rhonchi or wheezes noted. No increased work of breathing, no retractions or nasal flaring. Back: No spinal tenderness. No costovertebral tenderness. Full range of motion. Male : Normal genitalia with no discharge or lesions. Skin: Warm, dry with normal turgor. Normal color with no rashes, no lesions, and no evidence of cellulitis. 02:53 Abdomen/GI: Inspection: distension, Bowel sounds: normal, Palpation: abdomen is soft and non-tender, soft, nontender, mild abdominal tenderness, in all quadrants. Vital Signs: 02:00 BP 153 / 97; Pulse 105; Resp 16; Temp 97.7; Pulse Ox 98% ; Weight 93.89 kg; Height 5 rr5 ft. 7 in. (170.18 cm); Pain 10/10; 03:00 BP 141 / 70; Pulse 90; Resp 19; Pulse Ox 99% on R/A; Pain 9/10; rr5 04:15 BP 134 / 88; Pulse 94; Resp 17; Pulse Ox 99% ; Pain 10/10; rr5 05:00 BP 146 / 95; Pulse 93; Resp 17; Pulse Ox 98% ; Pain 9/10; rr5 05:50 BP 133 / 95; Pulse 99; Resp 16; Temp 98; Pulse Ox 98% ; rr5 02:00 Body Mass Index 32.42 (93.89 kg, 170.18 cm) rr5 MDM: 01:51 Patient medically screened. [facility] 02:56 Data reviewed: vital signs, nurses notes, lab test result(s), EKG, radiologic studies, [facility] CT scan, plain films. 06/05 02:16 Order name: Basic Metabolic Panel; Complete Time: 03:46 06/05 02:16 Order name: CBC with Diff; Complete Time: 03:26 aa06/05 02:16 Order name: LFT's; Complete Time: 03:46 aa06/05 02:16 Order name: Magnesium; Complete Time: 03:46 aa06/05 02:16 Order name: NT PRO-BNP; Complete Time: 03:46 aa 06/05 02:16 Order name: PT-INR; Complete Time: 03:26 aa06/05 02:16 Order name: Troponin (emerg Dept Use Only); Complete Time: 03:46 aa 06/05 02:16 Order name: XRAY Chest (1 view) aa 06/05 02:18 Order name: XRAY Chest (1 view) [facility] 06/05 02:18 Order name: Urine Culture [facility] 06/05 02:18 Order name: Stool Culture [facility] 06/05 02:18 Order name: Fecal Leukocyte Stain [facility] 06/05 02:51 Order name: Lipase; Complete Time: 03:46 EDMS 06/05 02:53 Order name: CT Abd/Pelvis - Without Contrast [facility] 06/05 05:36 Order name: Glucose, Ancillary Testing [facility]FL 06/05 02:16 Order name: EKG; Complete Time: 02:17 aa 06/05 02:16 Order name: Cardiac monitoring; Complete Time: 02:16 aa 06/05 02:16 Order name: EKG - Nurse/Tech; Complete Time: 02:16 aa 06/05 02:16 Order name: O2 Per Protocol; Complete Time: 02:16 aa06/05 02:16 Order name: O2 Sat Monitoring; Complete Time: 02:16 aa 06/05 02:18 Order name: EKG; Complete Time: 02:21 [facility] 06/05 02:18 Order name: Cardiac monitoring; Complete Time: 02:45 [facility] 06/05 02:18 Order name: EKG - Nurse/Tech; Complete Time: 02:45 [facility] 06/05 02:18 Order name: IV Saline Lock; Complete Time: 02:45 [facility] 06/05 02:18 Order name: Labs collected and sent; Complete Time: 02:45 [facility] 06/05 02:18 Order name: O2 Per Protocol; Complete Time: 02:45 [facility] 06/05 02:18 Order name: O2 Sat Monitoring; Complete Time: 02:46 [facility] 06/05 03:06 Order name: EKG; Complete Time: 03:09 06/05 04:06 Order name: EKG - Nurse/Tech; Complete Time: 04:20 [facility] 06/05 04:06 Order name: EKG; Complete Time: 04:07 [facility] Administered Medications: 02:40 Drug: NS 0.9% 1000 ml Route: IV; Rate: 1 bolus; Site: right forearm; rr5 04:21 Follow up: Response: No adverse reaction; IV Status: Completed infusion; IV Intake: rr5 1000ml 02:41 Drug: Zofran 4 mg Route: IVP; Site: right forearm; rr5 04:00 Follow up: Response: No adverse reaction rr5 02:44 Drug: fentaNYL (PF) 25 mcg {Note: rass 0.} Route: IVP; Site: right forearm; rr5 03:10 Follow up: Response: No adverse reaction; Pain is unchanged, physician notified; RASS: rr5 Alert and Calm (0) 03:16 Drug: fentaNYL (PF) 50 mcg Route: IVP; Site: left antecubital; aa1 04:15 Follow up: Response: No adverse reaction; Pain is unchanged, physician notified rr5 04:15 Follow up: Response: RASS: Alert and Calm (0) rr5 04:00 Drug: Pepcid 20 mg Route: IVP; Site: right forearm; rr5 05:00 Follow up: Response: No adverse reaction rr5 04:10 Drug: Insulin Regular Human 10 units {Co-Signature: aa1 (Anastasia Rutherford RN).} Route: rr5 IVP; Site: right forearm; 05:20 Follow up: Response: No adverse reaction; Blood sugar is lowered rr5 04:11 Drug: Insulin Regular Human 10 units {Co-Signature: aa1 (Anastasia Rutherford RN).} Route: rr5 Sub-Q; Site: right upper arm; 05:20 Follow up: Response: No adverse reaction; Blood sugar is lowered rr5 04:20 Drug: fentaNYL (PF) 25 mcg {Note: rass 0.} Route: IVP; Site: right forearm; rr5 05:00 Follow up: Response: No adverse reaction; RASS: Alert and Calm (0) rr5 05:30 Drug: Insulin Regular Human 10 units {Co-Signature: aa1 (Anastasia Rutherford RN).} Route: rr5 IVP; Site: right antecubital; 06:20 Follow up: Response: Blood sugar is lowered rr5 Disposition: 06/05/19 04:08 Hospitalization ordered by Tan Barnett for Inpatient Admission. Preliminary diagnosis are Abdominal tenderness, Chest pain, unspecified, Type 1 diabetes mellitus, Unspecified cirrhosis of liver, Unspecified kidney failure. - Bed requested for Telemetry/MedSurg (Inpatient). - Status is Inpatient Admission. rr5 - Condition is Fair. - Problem is new. - Symptoms have improved. Signatures: Dispatcher [employer] Anastasia Aldrich RN RN aa1 Mohinder Tejada MD MD cha Ballard, Brenda, RN RN bb Garcia, Cindy, RN RN cg Roque, Raymond, RN RN rr5 Anastasia Rutherford RN aa1 Corrections: (The following items were deleted from the chart) 02:46 02:16 IV Saline Lock ordered. aa1 rr5 02:47 02:16 Labs collected and sent ordered. [facility] rr5 02:50 02:20 BASIC METABOLIC PANEL+C.LAB.BRZ ordered. [facility]FL 02:50 02:20 CBC+H.LAB.BRZ ordered. [facility] EDFL 02:50 02:20 HEPATIC FUNCTION+C.LAB.BRZ ordered. [facility] EDFL 02:50 02:20 MAGNESIUM+C.LAB.BRZ ordered. [facility] EDFL 02:50 02:21 PROBNP+C.LAB.BRZ ordered. [facility] EDFL 02:50 02:21 PROTIME (+INR)+COAG.LAB.BRZ ordered. [facility] EDFL 02:50 02:21 TROPONIN (EMERG DEPT USE ONLY)+C.LAB.BRZ ordered. [facility] EDFL 02:50 02:21 LIPASE+C.LAB.BRZ ordered. [facility] EDFL 04:09 04:08 Hospitalization Ordered by Tan Barnett for Inpatient Admission. Preliminary [facility] diagnosis is Abdominal tenderness; Chest pain, unspecified; Type 1 diabetes mellitus; Unspecified cirrhosis of liver. Bed requested for Telemetry/MedSurg (Inpatient). Status is Inpatient Admission. Condition is Fair. Problem is new. Symptoms have improved. vanessa 04:35 03:06 EKG - Nurse/Tech ordered. chemo rr5 05:40 04:09 06/05/2019 04:08 Hospitalization Ordered by Tan Barnett for Inpatient cg Admission. Preliminary diagnosis is Abdominal tenderness; Chest pain, unspecified; Type 1 diabetes mellitus; Unspecified cirrhosis of liver; Unspecified kidney failure. Bed requested for Telemetry/MedSurg (Inpatient). Status is Inpatient Admission. Condition is Fair. Problem is new. Symptoms have improved. vanessa 06:27 05:40 06/05/2019 04:08 Hospitalization Ordered by Tan Barnett for Inpatient rr5 Admission. Preliminary diagnosis is Abdominal tenderness; Chest pain, unspecified; Type 1 diabetes mellitus; Unspecified cirrhosis of liver; Unspecified kidney failure. Bed requested for Telemetry/MedSurg (Inpatient). Status is Inpatient Admission. Condition is Fair. Problem is new. Symptoms have improved. cg
--- NOTE | 2019-06-05 04:08 | ER ---
Nurse's Notes [facility] Name: Wero Kwong Sr Age: 53 yrs Sex: Male : 1965 Arrival Date: 06/05/2019 Time: 01:20 Bed 5 Private MD: Diagnosis: Abdominal tenderness;Chest pain, unspecified;Type 1 diabetes mellitus;Unspecified cirrhosis of liver;Unspecified kidney failure Presentation: 06/05 02:00 Presenting complaint: Patient states: abdominal pain, nauseated and vomiting for for rr5 couple of months now but starting yesterday it gets worst. while we were in the waiting area my chest started to ache. 02:00 Transition of care: patient was not received from another setting of care. Onset of rr5 symptoms was June 04, 2019. Risk Assessment: Do you want to hurt yourself or someone else? Patient reports no desire to harm self or others. Initial Sepsis Screen: Does the patient meet any 2 criteria? No. Patient's initial sepsis screen is negative. Does the patient have a suspected source of infection? No. Patient's initial sepsis screen is negative. Care prior to arrival: None. 02:00 Method Of Arrival: Wheelchair rr5 02:00 Acuity: [place] 3 rr5 Historical: - Allergies: 02:00 Codeine; rr5 02:00 Hydrocodone-Acetaminophen; rr5 02:00 Morphine; rr5 - Home Meds: 06:08 acetazolamide 500 mg Oral cpER 1 cap 2 times per day [Active]; citalopram 20 mg tab 1 rr5 tab once daily [Active]; clopidogrel 75 mg Oral tab 1 tab once daily [Active]; furosemide 40 mg Oral tab 1 tab 2 times per day [Active]; gabapentin 300 mg Oral cap 3 caps twice a day [Active]; Humulin 70/30 100 unit/mL (70-30) Sub-Q susp [Active]; levetiracetam 500 mg Oral tab 1 tab 2 times per day [Active]; lisinopril 10 mg Oral tab 1 tab once daily [Active]; spironolactone 25 mg Oral tab nightly [Active]; simvastatin 40 mg Oral tab 1 tab once daily [Active]; travatan eye drops [Active]; - PMHx: 02:00 CAD; CHF; Cirrhosis; CVA; Diabetes - IDDM; High Cholesterol; Hypertension; kidney rr5 failure; Myocardial infarction; neuropathy; Seizures; - PSHx: 02:00 Heart stents; Cholecystectomy; rr5 - Immunization history:: Adult Immunizations up to date. - Coronavirus screen:: The patient has NOT traveled to [place], [place], or [place] in the past 14 days. - Social history:: Smoking status: Patient reports the use of cigarette tobacco products, 7 sticks per day. - Family history:: not pertinent. - Ebola Screening: : Patient negative for fever greater than or equal to 101.5 degrees Fahrenheit, and additional compatible Ebola Virus Disease symptoms Patient denies exposure to infectious person Patient denies travel to an Ebola-affected area in the 21 days before illness onset. Screenin:13 Abuse screen: Denies threats or abuse. Denies injuries from another. Nutritional rr5 screening: No deficits noted. Tuberculosis screening: No symptoms or risk factors identified. Fall Risk IV access (20 points). Total Morales Fall Scale indicates No Risk (0-24 pts). Assessment: 02:00 General: Appears in no apparent distress. uncomfortable, Behavior is calm, cooperative, rr5 appropriate for age. 02:00 Pain: Complains of pain in abdomen Pain radiates to chest Pain currently is 10 out of rr5 10 on a pain scale. Quality of pain is described as aching, Pain began gradually, Is intermittent. Neuro: Level of Consciousness is awake, alert, obeys commands, Oriented to person, place, time, situation, Appropriate for age. Cardiovascular: Reports chest pain, Capillary refill < 3 seconds Patient's skin is warm and dry. Respiratory: Airway is patent Respiratory effort is even, unlabored, Respiratory pattern is regular, symmetrical. GI: Abdomen is round non-distended, Bowel sounds present X 4 quads. Abd is soft and non tender Reports lower abdominal pain, upper abdominal pain, nausea, vomiting, Patient currently denies diarrhea. : No signs and/or symptoms were reported regarding the genitourinary system. EENT: No signs and/or symptoms were reported regarding the EENT system. Derm: Skin is intact, is healthy with good turgor, Skin temperature is warm. Musculoskeletal: Circulation, motion, and sensation intact. Capillary refill < 3 seconds. 03:06 Reassessment: pt c/o sharp chest pains at this time Dr Tejada notified new orders bb received for repeat EKG. 04:15 Reassessment: Patient appears in no apparent distress at this time. complaints of rr5 epigastric pain and chest pain pain score 10/10. ED provider aware with order made and carried out. Patient states symptoms have not improved. 05:00 Reassessment: Patient appears in no apparent distress at this time. No changes from rr5 previously documented assessment. Patient is alert, oriented x 3, equal unlabored respirations, skin warm/dry/pink. awaiting for room assignment. 05:00 Reassessment: ice chips given. rr5 06:00 Reassessment: Patient appears in no apparent distress at this time. Patient is alert, rr5 oriented x 3, equal unlabored respirations, skin warm/dry/pink. complaining of epigastric and chest pain. dr. barnett informed thru phone with order made and carried out. signed MAR in [employer]. Patient states symptoms have not improved. Vital Signs: 02:00 BP 153 / 97; Pulse 105; Resp 16; Temp 97.7; Pulse Ox 98% ; Weight 93.89 kg; Height 5 rr5 ft. 7 in. (170.18 cm); Pain 10/10; 03:00 BP 141 / 70; Pulse 90; Resp 19; Pulse Ox 99% on R/A; Pain 9/10; rr5 04:15 BP 134 / 88; Pulse 94; Resp 17; Pulse Ox 99% ; Pain 10/10; rr5 05:00 BP 146 / 95; Pulse 93; Resp 17; Pulse Ox 98% ; Pain 9/10; rr5 05:50 BP 133 / 95; Pulse 99; Resp 16; Temp 98; Pulse Ox 98% ; rr5 02:00 Body Mass Index 32.42 (93.89 kg, 170.18 cm) rr5 ED Course: 01:20 Patient arrived in ED. jg7 01:51 Mohinder Tejada MD is Attending Physician. vanessa 01:52 Josep Dumont RN is Primary Nurse. rr5 02:10 Triage completed. rr5 02:13 Arm band placed on right wrist. EKG completed in triage. Results shown to MD. rr5 02:13 Patient has correct armband on for positive identification. Placed in gown. Bed in low rr5 position. Call light in reach. chemistry quality control technician on. Pulse ox on. NIBP on. 02:16 EKG done, by ED staff, reviewed by Mohinder Tejada MD. aa1 02:40 Inserted saline lock: 20 gauge in right forearm, using aseptic technique. Blood rr5 collected. 03:04 XRAY Chest (1 view) In Process Unspecified. EDMS 03:47 Notified ED physician of a critical lab result(s). glucose 549 Dr Tejada notified. bb 04:07 Tan Barnett is Hospitalizing Provider. vanessa 04:20 EKG done, by ED staff, reviewed by Mohinder Tejada MD. rr5 05:31 CT Abd/Pelvis - Without Contrast In Process Unspecified. EDMS 06:06 No provider procedures requiring assistance completed. Patient admitted, IV remains in rr5 place. intact, No redness/swelling at site. Administered Medications: 02:40 Drug: NS 0.9% 1000 ml Route: IV; Rate: 1 bolus; Site: right forearm; rr5 04:21 Follow up: Response: No adverse reaction; IV Status: Completed infusion; IV Intake: rr5 1000ml 02:41 Drug: Zofran 4 mg Route: IVP; Site: right forearm; rr5 04:00 Follow up: Response: No adverse reaction rr5 02:44 Drug: fentaNYL (PF) 25 mcg {Note: rass 0.} Route: IVP; Site: right forearm; rr5 03:10 Follow up: Response: No adverse reaction; Pain is unchanged, physician notified; RASS: rr5 Alert and Calm (0) 03:16 Drug: fentaNYL (PF) 50 mcg Route: IVP; Site: left antecubital; aa1 04:15 Follow up: Response: No adverse reaction; Pain is unchanged, physician notified rr5 04:15 Follow up: Response: RASS: Alert and Calm (0) rr5 04:00 Drug: Pepcid 20 mg Route: IVP; Site: right forearm; rr5 05:00 Follow up: Response: No adverse reaction rr5 04:10 Drug: Insulin Regular Human 10 units {Co-Signature: jaswinder (Anastasia Rutherford RN).} Route: rr5 IVP; Site: right forearm; 05:20 Follow up: Response: No adverse reaction; Blood sugar is lowered rr5 04:11 Drug: Insulin Regular Human 10 units {Co-Signature: aa1 (Anastasia Rutherford RN).} Route: rr5 Sub-Q; Site: right upper arm; 05:20 Follow up: Response: No adverse reaction; Blood sugar is lowered rr5 04:20 Drug: fentaNYL (PF) 25 mcg {Note: rass 0.} Route: IVP; Site: right forearm; rr5 05:00 Follow up: Response: No adverse reaction; RASS: Alert and Calm (0) rr5 05:30 Drug: Insulin Regular Human 10 units {Co-Signature: aa1 (Anastasia Rutherford RN).} Route: rr5 IVP; Site: right antecubital; 06:20 Follow up: Response: Blood sugar is lowered rr5 Intake: 04:21 IV: 1000ml; Total: 1000ml. rr5 Outcome: 04:08 Decision to Hospitalize by Provider. vanessa 06:10 Admitted to Tele accompanied by tech, via stretcher, room 414, with chart, Report rr5 called to krishna 06:10 Condition: stable 06:10 Instructed on the need for admit. 06:27 Patient left the ED. rr5 Signatures: Dispatcher [employer] EDAnastasia Lea RN RN aa1 Mohinder Tejada MD MD cha Ballard, Brenda, RN RN Josep Troy RN RN rr5 Adriana Burger7 Anastasia Rutherford RN aa1 Corrections: (The following items were deleted from the chart) 02:48 02:44 fentaNYL (PF) 25 mcg IVP in right forearm rr5 rr5
--- NOTE | 2019-06-05 05:26 | P.HP ---
Certification for Inpatient Patient admitted to: Observation With expected LOS: <2 Midnights Practitioner: I am a practitioner with admitting privileges, knowledge of patient current condition, hospital course, and medical plan of care. Services: Services provided to patient in accordance with Admission requirements found in Title 42 Section 412.3 of the Code of Federal Regulations Patient History Date of Service: 06/05/19 Reason for admission: Abdominal pain History of Present Illness: 53-year-old gentleman with a history of diabetes mellitus type 2, diabetic neuropathy, liver cirrhosis presented to the emergency department with a complaint of progressive worsening abdominal pain over the past 3 days. Symptoms associated with nausea and diarrhea. No fever. Patient reports having this abdominal pain for about 1 month. He describes an intermittent abdominal pain which starts from mid abdomen and radiates up to the chest. He also reports reduced oral intake due to the nausea. In the ED, the patient's blood sugar is noted to be elevated to 520. CT abdomen and pelvis done shows chronic findings including liver cirrhosis. Chest x-ray reveals no acute disease. Troponin is negative. Patient has mild metabolic acidosis. He is placed under observation for further management. Allergies acetaminophen [From [facility]] Allergy (Verified 03/13/18 00:11) Hives/Rash codeine Allergy (Verified 03/12/18 23:24) Hives/Rash hydrocodone [From [facility]] Allergy (Verified 03/13/18 00:11) Hives/Rash morphine Allergy (Verified 03/13/18 00:11) Hives/Rash tramadol [From Ultram] Adverse Reaction (Verified 03/12/18 23:33) Itching Home Medications: Citalopram Hydrobromide [Citalopram HBr] 1 tab PO DAILY 01/03/19 Clopidogrel Bisulfate [Plavix*] 1 tab PO DAILY 01/03/19 Levetiracetam [Keppra] 1 tab PO BID 01/03/19 Brimonidine Tartrate/Timolol [Combigan 0.2%-0.5% Eye Drops] 1 drops EACH EYE BID 05/18/19 Brinzolamide [Azopt] 1 drop EACH EYE BID 05/18/19 Lisinopril [Zestril] 1 tab PO DAILY 05/18/19 Ondansetron HCl 1 tab PO BID PRN 05/18/19 Simvastatin 1 tab PO DAILY 05/18/19 Spironolactone 1 tab PO BEDTIME 05/18/19 Travoprost (Benzalkonium) [Travatan 0.004% Eye Drop] 1 drop EACH EYE DAILY 05/18 acetaZOLAMIDE [Acetazolamide ER] 1 tab PO BID 05/18/19 Gabapentin 900 mg PO BID 06/05/19 Spironolactone 1 tab PO BEDTIME 06/05/19 - Past Medical/Surgical History Diabetic: Yes -: History CVA -: Liver cirrhosis with history hepatitis A -: CAD -: Diabetes mellitus type 2, insulin dependent -: CAD with prior MS -: Diabetic neuropathy, retinopathy -: CHF -: Hyperlipidemia -: seizures -: Cardiac stents -: left acl repair -: Cholecystectomy Psychosocial/ Personal History: Patient lives at home and is . He has no children. - Family History Mother -: Heart disease, Hypertension - Social History Alcohol use: No CD- Drugs: No Caffeine use: Yes Review of Systems 10-point ROS is otherwise unremarkable Physical Examination - Physical Exam General: Alert, In no apparent distress, Oriented x3, Obese HEENT: Atraumatic, Mucous membr. moist/pink, Sclerae nonicteric Neck: Supple, JVD not distended Respiratory: Clear to auscultation bilaterally, Normal air movement Cardiovascular: Regular rate/rhythm, Normal S1 S2, Edema (1+ bilateral lower extremity pitting edema) Capillary refill: <2 Seconds Gastrointestinal: Normal bowel sounds, Soft and benign, No tenderness Musculoskeletal: No swelling, No erythema Integumentary: No rashes, No erythema Neurological: Normal speech, Normal strength at 5/5 x4 extr - Studies Laboratory Data (last 24 hrs) 06/05/19 02:40: PT 10.6, INR 0.89 06/05/19 02:40: WBC 7.9 D, Hgb 14.9, Hct 44.4, Plt Count 160 06/05/19 02:40: Sodium 133 L, Potassium 4.2, BUN 31 H, Creatinine 2.11 H, Glucose 529 H*, Magnesium 2.1, Total Bilirubin 0.3, AST 17, ALT 20, Alkaline Phosphatase 148 H, Lipase 394 H 06/05/19 02:18: PT Cancelled, INR Cancelled 06/05/19 02:18: WBC Cancelled, Hgb Cancelled, Hct Cancelled, Plt Count Cancelled 06/05/19 02:18: Sodium Cancelled, Potassium Cancelled, BUN Cancelled, Creatinine Cancelled, Glucose Cancelled, Magnesium Cancelled, Total Bilirubin Cancelled, AST Cancelled, ALT Cancelled, Alkaline Phosphatase Cancelled, Lipase Cancelled Assessment and Plan - Problems (Diagnosis) (1) Abdominal pain Current Visit: Yes Status: Acute (2) Uncontrolled type 2 diabetes mellitus with hyperglycemia Current Visit: Yes Status: Acute (3) Coronary artery disease Onset Date: 03/13/18 Current Visit: No Status: Chronic Qualifiers: (4) HTN (hypertension) Current Visit: No Status: Chronic Qualifiers: Hypertension type: essential hypertension Qualified Code(s): I10 - Essential (primary) hypertension (5) Liver cirrhosis Onset Date: 03/13/18 Current Visit: No Status: Chronic Qualifiers: Hepatic cirrhosis type: unspecified hepatic cirrhosis Ascites presence: without ascites Qualified Code(s): K74.60 - Unspecified cirrhosis of liver - Plan Place under observation. Trend troponin Trial of IV Protonix Novolin 70/30 and insulin sliding scale for glucose management. Patient will need GI evaluation along the line. Stools studies-fecal leukocytes, stool for C. diff, stool culture. Trial of oral flagyl. - Advance Directives Does patient have a Living Will: Yes Does patient have a Durable POA for Healthcare: No
[2019-06-05] MEDS: FENTANYL CITR 100 MCG/2 ML IV PRN ×4 (06:02→21:35)
[2019-06-05 07:29] VITALS: BMI 31.3
[2019-06-05] MEDS: INSULIN -REGULAR HUMAN 50 UNIT/0.5 ML ML SQ SCH ×4 (08:32→21:00)
[2019-06-05] MEDS: PANTOPRAZOLE 40 MG INJ IVP SCH ×2 (08:35→20:36)
[2019-06-05] MEDS: metroNIDAZOLE 500 MG TABLET PO SCH ×3 (08:36→20:37)
[2019-06-05] MEDS: HEPARIN 5000 UNIT/ML 1 ML VIAL SQ SCH ×2 (08:38→16:33)
[2019-06-05] MEDS: ONDANSETRON 4 MG/2 ML VIAL IV PRN (10:39)
--- NOTE | 2019-06-05 11:16 | RAD REPORT ---
EXAM DESCRIPTION: Noah Single View06/05/2019 2:59 am CLINICAL HISTORY: Chest pain COMPARISON: May 29, 2019 FINDINGS: The lungs appear clear of acute infiltrate. The heart is normal size IMPRESSION: No acute abnormalities displayed
--- NOTE | 2019-06-05 12:13 | RAD REPORT ---
EXAM DESCRIPTION: CT - Abdomen Pelvis Wo Contrast - 06/05/2019 6:07 am CLINICAL HISTORY: Abdominal pain. COMPARISON: CT abdomen and pelvis without contrast the very 05/17/2019. TECHNIQUE: Axial unenhanced CT imaging of the abdomen and pelvis performed. Reformatted coronal and sagittal images reviewed. A dose reduction technique was utilized with automated exposure control according to patient size. FINDINGS: There is a cystic-like 8 mm nodule in the anterior right lower lobe. Heart is normal in size. There are coronary artery calcifications. Trace anterior pericardial fluid. Subtle liver nodularity due to cirrhosis. Gallbladder has been resected. Normal spleen attenuation. M ild splenic enlargement of 14 cm. Mild inferior perisplenic varices. Normal pancreas. Normal adrenal glands. Normal kidneys. Mild bilateral perinephric edema is nonspecific. Abdominal aorta is mildly cirrhotic. Normal caliber inferior vena cava. No adenopathy. There is distal esophageal circumferential thickening. Normal stomach. Small bowel loops appear higinio l. Normal appendix identified in the right lower quadrant. Mild sigmoid colon diverticulosis. No asci meghana or free air. Unremarkable bladder. Normal prostate. No pelvic free fluid. Mild degenerative changes in the L3 and L4 endplates. Mild lower thoracic ligamentous ossifications a nd bridging osteophytes. Intact bony pelvis. Normal hips. IMPRESSION: 1. Mild bilateral perinephric edema is nonspecific but can be seen with advanced age, di abetes, renal insufficiency/failure, or pyelonephritis. Complete evaluation is limited without intrav enous contrast. 2. Very mild hepatic cirrhosis. 3. Splenomegaly. Mild varices suggestive of portal hypertension. 4. Mild sigmoid colon diverticulosis without diverticulitis. 5. Distal esophageal thickening may represent esophagitis or infiltrating process. Consider endoscopy . 6. Multiple pulmonary nodules. Most severe: 8.0 mm solid pulmonary nodule detected on incomplete ches t CT. Recommend a non-contrast Chest CT at 3-6 months, then consider another non-contrast Chest CT at 18-24 months. These guidelines do not apply to immunocompromised patients and patients with cancer. Follow up in pa tients with significant comorbidities as clinically warranted. For lung cancer screening, adhere to L demetrius-RADS guidelines. Reference: Radiology. 2017; 284(1):228-43. Electronically signed by: Rosa Maria Gonzalez DO 06/05/2019 5:00 AM ALTERATION INSPECTOR Due to temporary technical issues with the PACS/Fluency reporting system, reports are being signed by the in house radiologist as a courtesy to ensure prompt reporting. The interpreting radiologist is f ully responsible for the content of the report.
[2019-06-05] MEDS: METOCLOPRAMIDE 10 MG/2mL INJ IV SCH ×2 (16:30→20:38)
--- NOTE | 2019-06-05 19:58 | PN ---
Date of Progress Note: 06/05/2019 Subjective: Patient is seen and examined. Chart reviewed and case discussed with RN. Patient is still complaining of some abdominal pain, still having some nausea, has not had any further diarrhea. Medications: List reviewed. Physical Examination: Vital Signs: Temperature 97.8, heart rate 88, blood pressure 151/86, respirations 18, O2 of 96% on room air. General: Awake, alert, oriented x3, obese male, ill-appearing. Cardiovascular: S1, S2. Regular rate and rhythm. Peripheral pulses present. Respiratory: Moving air well bilaterally. No wheezing or stridor. Gastrointestinal: Abdomen is mildly distended. Tenderness to palpation in the epigastric region. No rebound or guarding. Positive bowel sounds. Extremities: No clubbing, cyanosis, or edema. Neurologic: Cranial nerves 2 through 12 intact grossly. No focal neurological deficit. Speech is normal. Laboratory Data: Blood sugar levels ranging between 529 and 218. Troponin less than 0.02 x2. Stool culture is pending. Assessment: A 53-year-old male with: 1. Epigastric abdominal pain, unclear etiology, may be related to diabetic gastroparesis or bacterial versus viral gastroenteritis. Stool cultures are pending. We will give trial of Reglan. Patient is a poorly controlled diabetic. 2. Uncontrolled diabetes mellitus type 2 with hyperglycemia. We will restart long-acting insulin. Patient is on 80 units twice a day. Continue sliding scale insulin. Monitor blood glucose levels. 3. Coronary artery disease, [place] artery and [place] heart without angina, stable. 4. Essential hypertension, stable. 5. Liver cirrhosis without ascites. 6. Obesity, BMI 31. 7. History of cerebrovascular accident. 8. Diabetic retinopathy and neuropathy. We will continue gabapentin and eye drops. 9. Congestive heart failure, likely diastolic dysfunction, chronic. 10. Mixed hyperlipidemia. Continue statin. 11. History of seizure disorders, on Keppra. 12. Deep vein thrombosis prophylaxis, on heparin. 13. Pulmonary nodule, 8 mm, multiple. Patient needs noncontrast CT chest in 3 -6 months. Plan: 1. Patient is on oral Flagyl empirically. We will follow up on stool studies. No further diarrhea at this time. We will give trial of Reglan. Patient is allergic to acetaminophen, codeine, hydrocodone, morphine, and tramadol. Therefore cannot have many options left for oral pain medications. I suspect diabetic gastroparesis is a cause of his symptoms along with possible viral illness. 2. Discharge if tolerating diet and symptoms improve. ADDENDUM: Patient is not tolerating his diet. Continues to have N/V. Switch to clear liquid diet. Patient continues to have abdominal pain. Continue fentanyl. SA/MODSaud Voice ID: [id number] Report ID: [id number] MTDD
[2019-06-05] MEDS: GABAPENTIN 300 MG CAP PO SCH (20:36)
[2019-06-05] MEDS: levETIRAcetam 500 MG TAB PO SCH (20:37)
[2019-06-05] MEDS: SPIRONOLACTONE 25 MG TABLET PO SCH (20:37)
[2019-06-05] MEDS: TIMOLOL EACH EYE SCH (20:39)
[2019-06-05] MEDS: HOME MED 1 EA UNK (Brinzolamide [Azopt] 1 DROP) EACH EYE SCH (20:39)
[2019-06-05] MEDS: FUROSEMIDE 40 MG TABLET PO SCH (20:39)
[2019-06-05] MEDS: BRIMONIDINE TARTRATE EACH EYE SCH (20:39)
[2019-06-05] MEDS: ACETAZOLAMIDE 500 MG PO SCH (21:00)
[2019-06-05] MEDS: INSULIN 70/30 100 UNITS/ML SQ SCH (21:36)
[2019-06-06] MEDS: HEPARIN 5000 UNIT/ML 1 ML VIAL SQ SCH ×3 (00:53→18:15)
[2019-06-06] MEDS: FENTANYL CITR 100 MCG/2 ML IV PRN ×3 (05:23→20:25)
[2019-06-06 05:36] LABS: Absolute Lymphocytes (CBC) 2.1 K/uL (0.7-4.9); Basophils % 1.8 % (0-1.3); Hematocrit 38.5 % (39.6-49.0); Lymphocytes % 34.6 % (15.3-44.8); MPV 10.8 fL (7.6-11.3); RBC Red Blood Cell Count 4.38 M/uL (4.33-5.43)
[2019-06-06 06:03] LABS: Albumin 2.3 g/dL (3.4-5.0); Bilirubin Total 0.3 mg/dL (0.2-1.0); Phosphorus 2.4 mg/dL (2.5-4.9); Potassium 3.7 mmol/L (3.5-5.1); Protein, Total 5.8 g/dL (6.4-8.2)
[2019-06-06 06:04] LABS: Thyroid Stimulating Hormone 1.84 uIU/mL (0.360-3.740)
--- NOTE | 2019-06-06 06:27 | EKG ---
Test Date: 2019-06-05 Test Time: 02:14:51 Lan Manager: JOSE MEASUREMENT RESULTS: Intervals: Rate: 104 AR: 130 QRSD: 134 QT: 398 QTc: 523 [place]: P: 34 AR: 130 QRS: 128 T: -12 INTERPRETIVE STATEMENTS: Sinus tachycardia Right bundle branch block Cannot rule out Inferior infarct, age undetermined Abnormal ECG Compared to ECG 05/29/2019 12:57:12 Myocardial infarct finding now present Sinus rhythm no longer present Electronically Signed On 06-06-19 06:26:49 VP DIRECTOR OF CREATIVE STRATEGY by David Fabian
[2019-06-06] MEDS: INSULIN -REGULAR HUMAN 50 UNIT/0.5 ML ML SQ SCH ×4 (07:30→21:00)
[2019-06-06] MEDS ORDERED: POTASSIUM CL SA 10 MEQ TAB PO ONE (08:00)
[2019-06-06] MEDS: POTASS/SODIUM PHOSPHATE 1 PKT POWD.PACK PO SCH ×3 (08:00→10:00)
[2019-06-06] MEDS: METOCLOPRAMIDE 10 MG/2mL INJ IV SCH ×3 (08:27→20:25)
[2019-06-06] MEDS: PANTOPRAZOLE 40 MG INJ IVP SCH ×2 (08:30→20:24)
[2019-06-06] MEDS: FUROSEMIDE 40 MG TABLET PO SCH ×2 (09:00→20:24)
[2019-06-06] MEDS: GABAPENTIN 300 MG CAP PO SCH ×2 (09:00→20:22)
[2019-06-06] MEDS: HOME MED 1 EA UNK (Brinzolamide [Azopt] 1 DROP) EACH EYE SCH ×2 (09:00→20:11)
[2019-06-06] MEDS: metroNIDAZOLE 500 MG TABLET PO SCH ×3 (09:00→20:24)
[2019-06-06] MEDS: BRIMONIDINE TARTRATE EACH EYE SCH ×2 (09:00→20:11)
[2019-06-06] MEDS: CLOPIDOGREL 75 MG TABLET PO SCH (09:00)
[2019-06-06] MEDS: ACETAZOLAMIDE 500 MG PO SCH ×2 (09:00→20:11)
[2019-06-06] MEDS: ATORVASTATIN 20 MG TAB PO SCH (09:00)
[2019-06-06] MEDS: HOME MED 1 EA UNK (Travoprost (Benzalkonium) [Travatan 0.004% Eye Drop] 1 DROP) EACH EYE SCH (09:00)
[2019-06-06] MEDS: INSULIN 70/30 100 UNITS/ML SQ SCH ×2 (09:00→21:46)
[2019-06-06] MEDS: CITALOPRAM 10 MG TABLET PO SCH (09:00)
[2019-06-06] MEDS: lisinopriL 10 MG TAB PO SCH (09:00)
[2019-06-06] MEDS: TIMOLOL EACH EYE SCH ×2 (09:00→20:11)
[2019-06-06] MEDS: levETIRAcetam 500 MG TAB PO SCH ×2 (09:00→20:23)
[2019-06-06] MEDS: ONDANSETRON 4 MG/2 ML VIAL IV PRN ×2 (10:18→18:50)
--- NOTE | 2019-06-06 16:21 | PN ---
Date of Progress Note: 06/06/2019 Subjective: Patient is seen and examined. Chart reviewed and case discussed with RN and Dr. La. Patient is still not really able to tolerate his diet, had nausea and vomiting yesterday after eating solids, was switched over to clear liquids. Reglan was added. Has made some improvement. Medications: List reviewed. Physical Examination: Vital Signs: Temperature 97.6, heart rate 85, blood pressure 104/72, respirations 16, O2 of 98% on room air. General: Awake, alert, oriented x3, in some mild distress, obese male. CV: S1, S2. Regular rate and rhythm. Peripheral pulses present. Respiratory: Moving air well bilaterally. No wheezing or stridor. No use of accessory muscles. Gastrointestinal: Abdomen is soft. Mild tenderness to palpation in the epigastric region. No guarding or rigidity. Extremities: No clubbing, cyanosis, or edema. Neurologic: Nonfocal. Laboratory Data: Sodium 137, potassium 3.7, chloride 111, CO2 of 19, BUN 30, creatinine 2.25, glucose 184, calcium 8.2, phosphorus 2.4, magnesium 2, albumin is 2.3. WBC 6.1, H and H 13.2 and 38.5, platelets 157, neutrophils 54%. Stool cultures pending. Urine culture, no growth to date. Assessment: A 53-year-old male with: 1. Epigastric abdominal pain, acute and likely due to diabetic gastroparesis versus gastroenteritis. No further loose stools. Cultures are pending. Had minimal improvement with Reglan, currently not able to tolerate solids, currently on clear liquids. GI has been consulted. Patient's CT scan does show esophagitis. May need endoscopy. Erythromycin is not available in the formulary for diabetic gastroparesis. 2. Esophagitis. GI consulted. Likely EGD in am. 3. Hypomagnesemia. We will replace and monitor. 4. Severe protein-calorie malnutrition. Albumin is 2.3. 5. Hypophosphatemia. We will replace and monitor. 6. Uncontrolled diabetes mellitus type 2 with hyperglycemia. We will continue with long-acting insulin, monitor closely. Continue with sliding scale insulin. Hemoglobin A1c is 13.3% from May 18, 2019. No need to repeat. 7. Essential hypertension, stable. 8. Coronary artery disease, [place] artery and [place] heart without angina, stable. 9. Cirrhosis without ascites. 10. History of cerebrovascular accident. 11. Diabetic retinopathy and neuropathy. Continue gabapentin and eye drops. 12. Congestive heart failure, likely diastolic dysfunction, chronic. 13. Mixed hyperlipidemia. We will continue statin. 14. History of seizure disorders. Continue Keppra. 15. Obesity, BMI 31. 16. Deep venous thrombosis prophylaxis, heparin. 17. Pulmonary nodule, 8 mm, largest. Patient has multiple nodules. Recommend noncontrast CT chest in 3 months. Plan: GI evaluation. Patient is unable to be discharged home as he is unable to tolerate diet, has esophagitis and likely diabetic gastroparesis. May need further intervention and evaluation with possible scope. /DOMINIC Voice ID: [id number] Report ID: [id number] JENNY
[2019-06-06] MEDS: D5 0.45 NS 1,000 ML IV SCH (18:55)
[2019-06-06] MEDS: SPIRONOLACTONE 25 MG TABLET PO SCH (20:22)
[2019-06-07] MEDS: HEPARIN 5000 UNIT/ML 1 ML VIAL SQ SCH ×3 (00:12→16:58)
[2019-06-07] MEDS: ACETAMINOPHEN 500 MG TAB PO PRN (03:46)
[2019-06-07] MEDS: FENTANYL CITR 100 MCG/2 ML IV PRN (04:52)
[2019-06-07] MEDS ORDERED: LORazepam 2 MG/ML VIAL IV ONE (06:32)
[2019-06-07] MEDS: INSULIN -REGULAR HUMAN 50 UNIT/0.5 ML ML SQ SCH ×4 (07:30→20:25)
[2019-06-07] MEDS: PANTOPRAZOLE 40 MG INJ IVP SCH ×2 (08:14→20:23)
[2019-06-07] MEDS: METOCLOPRAMIDE 10 MG/2mL INJ IV SCH ×4 (08:14→20:19)
[2019-06-07] MEDS: metroNIDAZOLE 500 MG TABLET PO SCH ×3 (08:15→20:17)
[2019-06-07] MEDS: levETIRAcetam 500 MG TAB PO SCH ×2 (08:15→20:18)
[2019-06-07] MEDS: GABAPENTIN 300 MG CAP PO SCH ×2 (08:15→20:17)
[2019-06-07] MEDS: lisinopriL 10 MG TAB PO SCH (08:15)
[2019-06-07] MEDS: ATORVASTATIN 20 MG TAB PO SCH (08:16)
[2019-06-07] MEDS: INSULIN 70/30 100 UNITS/ML SQ SCH (08:16)
[2019-06-07] MEDS: SODIUM CHLORIDE 0.9% 10ML INJ IV PRN (08:17)
[2019-06-07] MEDS: FUROSEMIDE 40 MG TABLET PO SCH ×2 (08:20→22:13)
[2019-06-07] MEDS: CITALOPRAM 10 MG TABLET PO SCH (08:20)
[2019-06-07] MEDS: CLOPIDOGREL 75 MG TABLET PO SCH (08:21)
[2019-06-07] MEDS: ACETAZOLAMIDE 500 MG PO SCH ×2 (08:40→20:11)
[2019-06-07] MEDS: BRIMONIDINE TARTRATE EACH EYE SCH ×2 (08:40→20:24)
[2019-06-07] MEDS: TIMOLOL EACH EYE SCH ×2 (08:40→20:24)
[2019-06-07] MEDS: HOME MED 1 EA UNK (Brinzolamide [Azopt] 1 DROP) EACH EYE SCH ×2 (08:40→20:24)
[2019-06-07] MEDS: HOME MED 1 EA UNK (Travoprost (Benzalkonium) [Travatan 0.004% Eye Drop] 1 DROP) EACH EYE SCH (08:41)
--- NOTE | 2019-06-07 09:25 | EKG ---
Test Date: 2019-06-05 Test Time: 05:38:56 Freight Flagman: RR MEASUREMENT RESULTS: Intervals: Rate: 61 IN: 148 QRSD: 92 QT: 418 QTc: 420 [place]: P: 10 IN: 148 QRS: 77 T: 14 INTERPRETIVE STATEMENTS: Normal sinus rhythm with sinus arrhythmia Normal ECG Compared to ECG 06/05/2019 02:14:51 Sinus tachycardia no longer present Right bundle-branch block no longer present Myocardial infarct finding no longer present Electronically Signed On 06-07-19 09:24:42 PLATER PRODUCTION by David Fabian
--- NOTE | 2019-06-07 09:26 | EKG ---
Test Date: 2019-06-05 Test Time: 04:11:19 Cath Lab Nurse: RR MEASUREMENT RESULTS: Intervals: Rate: 94 MN: 132 QRSD: 146 QT: 392 QTc: 490 [place]: P: 35 MN: 132 QRS: 119 T: -16 INTERPRETIVE STATEMENTS: Normal sinus rhythm Right bundle branch block T wave abnormality, non specific Abnormal ECG Compared to ECG 06/05/2019 02:14:51 Sinus tachycardia no longer present Myocardial infarct finding no longer present Electronically Signed On 06-07-19 09:25:30 OFFSET PRESS ASSISTANT by David Fabian
[2019-06-07] MEDS: D5 0.45 NS 1,000 ML IV SCH ×2 (09:57→20:40)
[2019-06-07] MEDS ORDERED: NA CHLORIDE 0.9% 1,000 ML ONE ×2 (11:08→15:24)
[2019-06-07] MEDS: ERYTHROMYCIN 250 MG PO SCH ×3 (12:00→20:17)
[2019-06-07] MEDS ORDERED: propofoL 200 MG/20 ML VIAL IV ONE (12:01)
[2019-06-07] MEDS ORDERED: LIDOCAINE 1% MPF 5 ML VIAL ONE (12:01)
[2019-06-07] MEDS ORDERED: NS 0.9% VIAL 0 ML ONE (12:26)
[2019-06-07] MEDS ORDERED: Phenylephrine HCl 10 MG/ML 1 ML VIAL ONE (12:26)
--- NOTE | 2019-06-07 12:37 | ENDO RPT ---
[address], [address] EGD PROCEDURE REPORT EXAM DATE: 06/07/2019 PATIENT NAME: Wero Kwong MR#: [id number] BIRTHDATE: 1965 ATTENDING: Zain La Dr STATUS: inpatient - 7 DRUG ABUSE RESISTANCE EDUCATION OFFICER: Beatriz Claros RN and Karma Nichols RN INDICATIONS: The patient is a 53 yr old Male here for an EGD due to abnormal CT abdomen/pelvis (marked inflammation of the esophagus), mid epigastric abdominal pain and nausea and vomiting PROCEDURE PERFORMED: EGD with biopsy MEDICATIONS: Per Anesthesia. TOPICAL ANESTHETIC: none CONSENT: The patient understands the risks and benefits of the procedure and understands that these risks include, but are not limited to: sedation, allergic reaction, infection, perforation and/or bleeding. Alternative means of evaluation and treatment include, among others: physical exam, x-rays, and/or surgical intervention. The patient elects to proceed with this endoscopic procedure. DESCRIPTION OF PROCEDURE: During intra-op preparation period all mechanical medical equipment was checked for proper function. Hand hygiene and appropriate measures for infection prevention was taken. Procedure, possible complications, and alternatives including but not limited to the possibility of bleeding, perforation, tear, infection, sepsis, need for surgery, need for blood transfusion, and anesthesia related complications were explained to the patient. After the risks, benefits and alternatives of the procedure were thoroughly explained, Informed consent was verified, confirmed and timeout was successfully executed by the treatment team. The patient was placed in the left lateral position. The patient was anesthetized with topical anesthesia. Through the anesthetized oropharyngeal area, the scope was passed without any difficulty. The [id number] ([id number]) endoscope was introduced through the mouth and advanced to the third portion of the duodenum. Retroflexed views revealed a small hiatal hernia. The gastroscope was then slowly withdrawn and removed. LA Class C esophagitis was found in the lower esophagus. A small hiatal hernia was found Moderate gastritis was found in the body and the antrum of the stomach. Multiple biopsies were obtained and sent to pathology. Duodenitis was found in the bulb and descending duodenum. ADVERSE EVENTS: There were no complications. IMPRESSIONS: 1. LA Class C esophagitis in the lower esophagus 2. Small hiatal hernia 3. Moderate gastritis in the body and the antrum of the stomach, s/p biopsies 4. Duodenitis in the bulb and descending duodenum RECOMMENDATIONS: 1. await biopsy results 2. acid suppression therapy REPEAT EXAM: Zain La Dr eSigned: Zain La Dr 06/07/2019 12:37 PM cc: CPT CODES: ICD9 CODES: PATIENT NAME: Wero Kwong MR#: [id number]
[2019-06-07] MEDS ORDERED: D50W 25 GM/50 ML SYRINGE/VIAL IV ONE ×2 (13:27)
[2019-06-07] MEDS: HYDROMORPHONE HCL 1 MG/ML INJ IV PRN ×2 (14:24→20:29)
[2019-06-07] MEDS ORDERED: NALOXONE 0.4 MG/ML VIAL ONE (15:24)
[2019-06-07 15:43] LABS: Absolute Lymphocytes (CBC) 1.1 K/uL (0.7-4.9); Basophils % 0.9 % (0-1.3); Hematocrit 38.3 % (39.6-49.0); Lymphocytes % 15.8 % (15.3-44.8); MPV 10.8 fL (7.6-11.3)
[2019-06-07 16:05] LABS: ALT/SGPT 18 U/L (12-78); AST/SGOT 22 U/L (15-37); Albumin 2.3 g/dL (3.4-5.0); Alkaline Phosphatase 111 U/L (45-117); BUN Blood Urea Nitrogen 29 mg/dL (7-18); Bicarbonate 20 mmol/L (21-32); Bilirubin Total 0.3 mg/dL (0.2-1.0); Glucose Level 93 mg/dL (74-106); Potassium 4.2 mmol/L (3.5-5.1); Protein, Total 5.5 g/dL (6.4-8.2); Sodium Level 140 mmol/L (136-145); Troponin I < 0.02 ng/mL (0.0-0.045)
--- NOTE | 2019-06-07 16:36 | P.PN ---
Date of Service: 06/07/19 nurse called for BP 70s systolic. Rapid response called. PAtient placed in lying position, NS 1 L BOLUS given. labs melinda pt complained of chest pain EKG done. no change narcan given as pt recently received dilaudid Patients apparently gave nurses a pill bottle of acetazolomide which it seems was given to pt by . Patient alert and talking. BP responding to IVFs. continue to monitor closely.
[2019-06-07] MEDS: MAGNES/ALUMIN/SIMET 30ML UCUP PO PRN (16:56)
--- NOTE | 2019-06-07 17:16 | CON ---
Date of Consultation: 06/07/2019 Reason For Consultation: Abnormal CT scan revealing severe inflammation of the esophagus, possible e sophagitis or other with history of diabetic gastroparesis, nausea, and vomiting. History Of Present Illness: This patient is a 53-year-old male with history of diabetes typ e 2, diabetic neuropathy and probable diabetic gastroparesis, liver cirrhosis. The patient came to [facility] due to worsening upper abdominal pain over the past 3 days with some vomiting, but mainly nausea, also some diarrhea. The patient reports having abdominal pain over the past month, intermit tent pain that starts in the midepigastric area and radiates up to chest. He reports reduced oral in take due to nausea. Blood sugar is noted to be elevated at 520. The patient stated, at home, his bl ood sugars usually run in the 600s to 700s. CT of abdomen and pelvis reveals findings consistent wit h cirrhosis of the liver and marked inflammation of the esophagus. Chest x-ray, no acute disease. T roponin I was negative. Past Medical History: Significant for diabetes, hypertension, hyperlipidemia, myocardial infarctions x4, strokes x3, liver cirrhosis with history of hepatitis A, coronary artery disease as stated above , diabetic neuropathy and retinopathy, congestive heart failure, seizures, cardiac stents, left ACL r epair, cholecystectomy. Social History: Patient lives at home. . He has 3 children, 2 sons and 1 daughter. Positiv e tobacco. It looks like he quit alcohol some years ago, possibly due to his liver disease. Family History: Father, he did not know. Mother of diabetic complications including diabetic n europathy; and by chart review, mother also had hypertension and heart disease. Review of Systems: The patient has nausea, greater than vomiting, midepigastric pain, diarrhea recently, but no melena, hematochezia, hematemesis, coffee-ground emesis, hematuria, dysuria, polydipsia hemoptysis, chest juventino n, shortness of breath, seizure, or syncope. He does have lower extremity edema, at least 3+ actuall y, and no depression or anxiety noted. Home Medications: Included; citalopram, Plavix, Keppra, Combigan, Azopt, lisinopril, Zofran, Zocor, Aldactone, travoprost, gabapentin, acetazolamide. Allergies: TO TYLENOL, CODEINE, HYDROCODONE, MORPHINE, AND ULTRAM. Physical Examination: Vital Signs: The patient is 5 feet 7 inches, 199 pounds. BMI of 31 kg/sq m. He has a temperature o f 96.8 degrees Fahrenheit, pulse 85, respirations 16, blood pressure 105/66, O2 saturation 99%. General: He is an obese male, lying in bed, in no acute distress. Poor physical condition, out of s hape. HEENT: Normocephalic, atraumatic. Anicteric. Pupils equal, round, and reactive to light. __ anicteric. Oropharynx clear. Neck: Supple. No masses. Respirations: Clear to auscultation bilaterally. Cardiac: Regular rate and rhythm. Gastrointestinal: Positive bowel sounds. Soft. Nontender. No splenomegaly. Obese, with some mild tenderness in the midepigastric area, but with no peritoneal signs. No Leblanc. No rebound. No gua rding. Extremities: No clubbing or cyanosis. He did have 3+ pitting edema in the lower extremities. Neuro: Alert and oriented x3. Able to move extremities well. Some decreased light touch sensation, but able to move well. Laboratory Data: The patient had a white count yesterday of 6.1, down from 7.9 the day before. Hemo globin 13.2, hematocrit 39, MCV of 88, platelet count of 157, polys of 55%, lymphocytes 35%, monocyte s 5%, eosinophils 4%, basophils 2%. The patient has a PT of 10.6, INR of 0.9. Overnight, the patien t had sodium 137, potassium 3.7, chloride 111, bicarb 19, BUN of 30, creatinine of 2.25, glucose of 1 84, calcium 8.2, phosphorus 2.4, magnesium is 2.0. Total bilirubin 0.3, AST of 16, ALT of 17, alkali ne phosphatase 112. Troponin I of less than 0.02. Total protein 5.8, albumin 2.3. TSH is 1.84. CT abdomen and pelvis revealed bilateral perinephric edema, probably due to his diabetes, renal insuffi ciency as noted above, very mild hepatic cirrhosis, splenomegaly with mild varices suggestive of port al hypertension, mild sigmoid colon diverticulosis without diverticulitis. Distal esophagus thickeni ng, which could represent inflammatory infiltrating process or esophagitis. We will need endoscopy t o evaluate. Multiple pulmonary nodules, most severe is an 8 mm solid pulmonary nodule detected on in complete CT chest. Recommend noncontrast CT chest in 3-6 months. Prostate appeared normal. Also, t here are some mild degenerative changes in the L3-L4 with osteophytes and ossification noted. Impression: 1.Probable diabetic gastroparesis with nausea and some emesis. Midepigastric pain. 2.Esophagitis noted on CT scan, could be an infiltrating process or esophagitis with marked inflamma tion noted. We will need to investigate with EGD. 3.Very mild hepatic cirrhosis. We will need to begin workup for possible cirrhosis of the liver. 4.History of brittle diabetes. Glucoses in the 600-800 range, according to the patient, at home. 5.Hypertension. 6.Hyperlipidemia. 7.Myocardial infarctions x4. 8.Strokes x4. 9.Cardiac stents and other as per above. 10.Over the last 3 months, he has been to the hospital 3 days out of every week, he reports. Recommendation: 1.Proceed with EGD. 2.IV fluids. 3.PPI therapy. 4.Reglan. 5.Consider erythromycin q.i.d. low dose mg p.o. q.i.d., first cycle for 3 weeks and off f or 3 weeks, but the patient will need definite better control of his diabetes. 6.Endocrinology consultation as outpatient. The patient states he plans to see an machine printer s oon. 7.Gastric emptying study. 8.The patient is increasing exercise and eating meals on a schedule same time every day to try to he lp improve his physical state. JOSS/DOMINIC Voice ID: [id number] Report ID: [id number]
--- NOTE | 2019-06-07 17:42 | EKG ---
Test Date: 2019-06-07 Test Time: 15:29:24 Swim Instructor: LISSET MEASUREMENT RESULTS: Intervals: Rate: 76 CA: 140 QRSD: 146 QT: 452 QTc: 508 [place]: P: 40 CA: 140 QRS: 95 T: 9 INTERPRETIVE STATEMENTS: Normal sinus rhythm Right bundle branch block Cannot rule out Inferior infarct, age undetermined Abnormal ECG Compared to ECG 06/05/2019 05:38:56 Right bundle-branch block now present Myocardial infarct finding now present Sinus arrhythmia no longer present Electronically Signed On 06-07-19 17:41:31 DATABASES SOFTWARE CONSULTANT by David Fabian
--- NOTE | 2019-06-07 19:13 | PN ---
Date of Progress Note: 06/07/2019 Subjective: Patient is seen and examined. Chart reviewed and case discussed with RN. Patient brendan thurman n.p.o. for EGD this morning. Medications: Reviewed. Physical Examination: Vital Signs: Temperature 97, heart rate 81, blood pressure 129/78, respirations 16, O2 of 94% on igor m air. General: Awake, alert, oriented x3, ill-appearing, obese male. CVS: S1, S2. Regular rate and rhythm. Respiratory: Moving air well bilaterally. Abdomen: Soft. Mild tenderness to palpation in the epigastric region. No rebound or guarding. Extremities: No clubbing, cyanosis, or edema. Neurologic: Nonfocal. Patient does have decreased sensation to light touch in lower extremities. Laboratory Data: Blood glucose levels ranging between 54 and 200. Stool culture and sensitivity pj ws no salmonella, shigella, or campylobacter. Fecal leukocyte stain, no wbc's. Assessment: A 53-year-old male with: 1.Epigastric abdominal pain likely due to diabetic gastroparesis, gastroenteritis. Patient is sched uled for EGD today showed duodenitis and gastritis and class C esophagitis. We will restart on liqui d diet. Appreciate Dr. La's input. 2.Diabetic gastroparesis. Patient has been started on erythromycin and Reglan with meals. 3.Esophagitis, status post EGD. 4.Hypomagnesemia, replaced. We will continue to monitor. 5.Severe protein-calorie malnutrition, albumin 2.3. Continue with supplements. 6.Hypophosphatemia. We will replace and monitor. 7.Uncontrolled diabetes mellitus type 2 with hyperglycemia. A1c is 13.3%. Patient is somewhat hypo glycemic today due to being n.p.o., is on D5 half NS. 8.Essential hypertension, stable. 9.Coronary artery disease, wainwright artery and wainwright heart without angina, status post stent, stable. 10.Cirrhosis without ascites. 11.History of cerebrovascular accident. 12.Diabetic retinopathy and neuropathy. 13.Congestive heart failure, likely diastolic dysfunction, chronic. 14.Mixed hyperlipidemia, on statin. 15.History of seizure disorders. Continue Keppra. 16.Obesity, BMI 31. 17.Multiple pulmonary nodules, largest being 8 mm. [facility] needs repeat CT chest in 3 months. 18.Deep vein thrombosis prophylaxis with heparin. Plan: Advance diet as tolerated. Continue with Reglan and erythromycin, likely discharge in a.m. if continues to improve. /DOMINIC Voice ID: [id number] Report ID: [id number]
[2019-06-07] MEDS: SPIRONOLACTONE 25 MG TABLET PO SCH (20:18)
[2019-06-08] MEDS: HEPARIN 5000 UNIT/ML 1 ML VIAL SQ SCH ×2 (01:27→08:38)
[2019-06-08] MEDS: ACETAMINOPHEN 500 MG TAB PO PRN (01:47)
[2019-06-08 04:25] LABS: Absolute Lymphocytes (CBC) 1.7 K/uL (0.7-4.9); Basophils % 0.4 % (0-1.3); Hematocrit 33.1 % (39.6-49.0); MPV 11.5 fL (7.6-11.3); RBC Red Blood Cell Count 3.68 M/uL (4.33-5.43)
[2019-06-08] MEDS ORDERED: NA CHLORIDE 0.9% 250 ML IV ONE (04:30)
[2019-06-08 04:34] LABS: Bilirubin Total 0.3 mg/dL (0.2-1.0); Phosphorus 3.3 mg/dL (2.5-4.9); Potassium 4.2 mmol/L (3.5-5.1)
[2019-06-08] MEDS: D5 0.45 NS 1,000 ML IV SCH ×2 (06:25→10:00)
[2019-06-08] MEDS: MAGNES/ALUMIN/SIMET 30ML UCUP PO PRN (08:36)
[2019-06-08] MEDS: INSULIN -REGULAR HUMAN 50 UNIT/0.5 ML ML SQ SCH ×2 (08:36→12:05)
[2019-06-08] MEDS: GABAPENTIN 300 MG CAP PO SCH (08:37)
[2019-06-08] MEDS: PANTOPRAZOLE 40 MG INJ IVP SCH (08:37)
[2019-06-08] MEDS: ATORVASTATIN 20 MG TAB PO SCH (08:37)
[2019-06-08] MEDS: METOCLOPRAMIDE 10 MG/2mL INJ IV SCH ×2 (08:37→12:05)
[2019-06-08] MEDS: metroNIDAZOLE 500 MG TABLET PO SCH ×2 (08:37→14:02)
[2019-06-08] MEDS: levETIRAcetam 500 MG TAB PO SCH (08:37)
[2019-06-08] MEDS: CLOPIDOGREL 75 MG TABLET PO SCH (08:37)
[2019-06-08] MEDS: CITALOPRAM 10 MG TABLET PO SCH (08:38)
[2019-06-08] MEDS: FUROSEMIDE 40 MG TABLET PO SCH (08:38)
[2019-06-08] MEDS: SODIUM CHLORIDE 0.9% 10ML INJ IV PRN (08:39)
[2019-06-08] MEDS: HOME MED 1 EA UNK (Travoprost (Benzalkonium) [Travatan 0.004% Eye Drop] 1 DROP) EACH EYE SCH (08:39)
[2019-06-08] MEDS: ACETAZOLAMIDE 500 MG PO SCH (08:40)
[2019-06-08] MEDS: HOME MED 1 EA UNK (Brinzolamide [Azopt] 1 DROP) EACH EYE SCH (08:40)
[2019-06-08] MEDS: ERYTHROMYCIN 250 MG PO SCH ×3 (08:41→14:02)
[2019-06-08] MEDS: lisinopriL 10 MG TAB PO SCH (08:43)
[2019-06-08 08:44] VITALS: BP 104/61
[2019-06-08] MEDS: TIMOLOL EACH EYE SCH (09:00)
[2019-06-08] MEDS ORDERED: LIDOCAINE 4% PATCH TOP SCH (09:00)
[2019-06-08] MEDS: BRIMONIDINE TARTRATE EACH EYE SCH (09:00)
--- NOTE | 2019-06-08 09:41 | P.DS ---
Admission Date: 06/06/19 Discharge Date: 06/08/19 Primary Care Provider: Dr. Priest; GI-Dr. La Disposition: ROUTINE DISCHARGE Discharge Condition: GOOD Reason for Admission: Abdominal pain Consultations: GI-Dr. La Procedures: CT Scan: FINDINGS: There is a cystic-like 8 mm nodule in the anterior right lower lobe. Heart is normal in size. There are coronary artery calcifications. Trace anterior pericardial fluid. Subtle liver nodularity due to cirrhosis. Gallbladder has been resected. Normal spleen attenuation. Mild splenic enlargement of 14 cm. Mild inferior perisplenic varices. Normal pancreas. Normal adrenal glands. Normal kidneys. Mild bilateral perinephric edema is nonspecific. Abdominal aorta is mildly cirrhotic. Normal caliber inferior vena cava. No adenopathy. There is distal esophageal circumferential thickening. Normal stomach. Small bowel loops appear normal. Normal appendix identified in the right lower quadrant. Mild sigmoid colon diverticulosis. No ascites or free air. Unremarkable bladder. Normal prostate. No pelvic free fluid. Mild degenerative changes in the L3 and L4 endplates. Mild lower thoracic ligamentous ossifications and bridging osteophytes. Intact bony pelvis. Normal hips. IMPRESSION: 1. Mild bilateral perinephric edema is nonspecific but can be seen with advanced age, diabetes, renal insufficiency/failure, or pyelonephritis. Complete evaluation is limited without intravenous contrast. 2. Very mild hepatic cirrhosis. 3. Splenomegaly. Mild varices suggestive of portal hypertension. 4. Mild sigmoid colon diverticulosis without diverticulitis. 5. Distal esophageal thickening may represent esophagitis or infiltrating process. Consider endoscopy. 6. Multiple pulmonary nodules. Most severe: 8.0 mm solid pulmonary nodule detected on incomplete chest CT. Recommend a non-contrast Chest CT at 3-6 months , then consider another non-contrast Chest CT at 18-24 months. Endoscopy: Small hiatal hernia Class C esophagitis Gastritis Duodenitis Medical Problem List: Epigastric abdominal pain secondary to diabetic gastroparesis with EGD showing duodenitis/gastritis and class C esophagitis Severe protein calorie malnutrition with noted hypomagnesia and Hypophosphatemia Diabetes mellitus type 2 insulin-dependent with hyperglycemia Hypertension CAD with prior stent Cirrhosis without ascites History of CVA Diabetic retinopathy and neuropathy Chronic diastolic CHF Hyperlipidemia History of seizures Chronic renal disease stage II Obesity, BMI 31 Depression with anxiety History of Multiple pulmonary nodules Chronic pain Brief History of Present Illness: 53-year-old male with multiple medical problems presented with epigastric abdominal pain revealed possible esophagitis. Patient with history of cirrhosis. Patient admitted for further evaluation and treatment. Hospital Course: Patient presented with epigastric abdominal pain. This was likely related to diabetic gastroparesis verses esophagitis. GI was consulted. Patient had EGD showing small hiatal hernia, class C esophagitis, gastritis and duodenitis. At discharge patient has tolerated his diet. Patient will continue with a GI soft diet. Patient will continue with Protonix 40 mg 1 pill twice daily. Recommend follow up with GI in 1-2 weeks to follow up this hospitalization. Patient will be provided education on gastritis, esophagitis, duodenitis, and hiatal hernia. Patient will also continue with Reglan 5 mg 3 times a day as needed for nausea. Patient with severe protein malnutrition. Patient will continue with a GI soft diet. Patient with diabetes mellitus type 2 insulin dependent. A1c elevated at 13.3. Patient needs better diabetic control. Patient will continue with insulin 70/ 30 80 units subcu twice daily. Recommend to monitor blood sugar at least twice daily. If blood sugar remains above 140 fasting and greater than 200 after each meal all then his insulin regiment will need to be adjusted for better control. This can be done with the help of his PCP. Patient would benefit with endocrinology evaluation as an outpatient for better control. Patient with CAD with prior stent. Patient previously taking lisinopril for his blood pressure. This has been discontinued due to low blood pressure. Recommend to monitor blood pressure daily. If his blood pressure remains elevated greater than 140 fasting and then lisinopril 5 mg daily can be restarted. At discharge patient will continue with Plavix 75 mg daily. Further adjustment in medication can be done by his PCP or cardiology. Patient with chronic diastolic CHF. At discharge she will continue with a 1500 cc per day fluid restriction and low-salt diet. He is to monitor his weight daily. If his weight increases by more than 5 lb he is to contact his PCP for further recommendation. At discharge he will continue his diuretic therapy including Lasix 40 mg 1 pill twice daily, Aldactone 25 mg at bedtime, and Diamox ER 500 mg 1 pill twice daily. Recommend to recheck BMP in 1-2 weeks to monitor his progress. Further adjustment in medication can be done by his PCP. Patient with cirrhosis without ascites. Patient will continue with above recommendations on fluid restriction and diuretic therapy. Recommend follow up with GI as an outpatient to further address. Patient with chronic renal disease stage II. This has remained stable. Patient will continue with above fluid recommendations. Recommend follow up with nephrology as an outpatient to further monitor. Recommend no further use of nonsteroidal anti-inflammatories. Future medications will need to be renally dose. Patient with history of CVA. Patient will continue with Plavix 25 mg daily. Patient with chronic pain and diabetic neuropathy. At discharge she will continue with gabapentin 900 mg twice daily. Patient will be provided lidocaine patch. Recommend to establish care with pain management to further address. Patient with history of seizure disorder. At discharge he will continue with Keppra 250 mg 1 pill twice daily. Recommend follow up with neurology as directed. Patient with history of multiple pulmonary nodules. This has been addressed in the past. Recommend to repeat CT scan in 3 months to monitors progress. Patient would benefit with pulmonology evaluation as an outpatient to further address. Vital Signs/Physical Exam: Temp Pulse Resp BP Pulse Ox 98.5 F 82 20 104/61 97 06/08/19 04:00 06/08/19 08:43 06/08/19 04:00 06/08/19 08:43 06/08/19 04:00 General: Alert, In no apparent distress, Oriented x3, Cooperative HEENT: Atraumatic Neck: Supple Respiratory: Clear to auscultation bilaterally, Normal air movement Cardiovascular: Normal pulses, Regular rate/rhythm Gastrointestinal: Normal bowel sounds, Soft and benign, Non-distended Musculoskeletal: No erythema, No tenderness, No warmth Integumentary: Tenderness/swelling (Mild pitting edema to the lower extremities bilateral) Neurological: Normal speech, Normal strength at 5/5 x4 extr, Normal tone, Normal affect Laboratory Data at Discharge: WBC 10.9 K/uL (4.3-10.9) D 06/08/19 03:50 Hgb 11.5 g/dL (13.6-17.9) L 06/08/19 03:50 Hct 33.1 % (39.6-49.0) L 06/08/19 03:50 Plt Count 141 K/uL (152-406) L D 06/08/19 03:50 PT 10.6 SECONDS (9.5-12.5) 06/05/19 02:40 INR 0.89 06/05/19 02:40 APTT 31.5 SECONDS (24.3-36.9) 06/06/19 05:08 Sodium 138 mmol/L (136-145) 06/08/19 03:50 Potassium 4.2 mmol/L (3.5-5.1) 06/08/19 03:50 BUN 30 mg/dL (7-18) H 06/08/19 03:50 Creatinine 2.73 mg/dL (0.55-1.3) H 06/08/19 03:50 Glucose 187 mg/dL (74-106) H 06/08/19 03:50 Phosphorus 3.3 mg/dL (2.5-4.9) 06/08/19 03:50 Magnesium 2.0 mg/dL (1.8-2.4) 06/06/19 05:08 Total Bilirubin 0.3 mg/dL (0.2-1.0) 06/08/19 03:50 AST 22 U/L (15-37) 06/08/19 03:50 ALT 17 U/L (12-78) 06/08/19 03:50 Alkaline Phosphatase 99 U/L (45-117) 06/08/19 03:50 Troponin I < 0.02 ng/mL (0.0-0.045) 06/07/19 15:40 Lipase 394 U/L (73-393) H 06/05/19 02:40 Home Medications: Citalopram Hydrobromide [Citalopram HBr] 1 tab PO DAILY 01/03/19 Clopidogrel Bisulfate [Plavix*] 1 tab PO DAILY 01/03/19 Levetiracetam [Keppra] 1 tab PO BID 01/03/19 Brimonidine Tartrate/Timolol [Combigan 0.2%-0.5% Eye Drops] 1 drops EACH EYE BID 05/18/19 Brinzolamide [Azopt] 1 drop EACH EYE BID 05/18/19 Simvastatin 1 tab PO DAILY 05/18/19 Spironolactone 1 tab PO BEDTIME 05/18/19 Travoprost (Benzalkonium) [Travatan 0.004% Eye Drop] 1 drop EACH EYE DAILY 05/18 acetaZOLAMIDE [Acetazolamide ER] 1 tab PO BID 05/18/19 Furosemide 1 tab PO BID 06/05/19 Gabapentin 900 mg PO BID 06/05/19 Insulin 70/30 NPH/Reg Human [Novolin 70/30*] 80 units SQ BID 06/05/19 Lidocaine 4% Patch [Lidoderm 5% Patch*] 1 patch TOP DAILY #15 patch 06/08/19 Metoclopramide HCl [Reglan] 5 mg PO TID PRN #15 tablet 06/08/19 Pantoprazole [Protonix Tab] 40 mg PO BID #60 tab 06/08/19 New Medications: Lidocaine 4% Patch [Lidoderm 5% Patch*] 1 patch TOP DAILY #15 patch Metoclopramide HCl [Reglan] 5 mg PO TID PRN #15 tablet PRN Reason: Nausea / Vomiting Pantoprazole [Protonix Tab] 40 mg PO BID #60 tab Patient Discharge Instructions: 1. Recommend follow up with PCP in 1-2 weeks to follow up this hospitalization. 2. Patient presented with epigastric abdominal pain. This was likely related to diabetic gastroparesis verses esophagitis. GI was consulted. Patient had EGD showing small hiatal hernia, class C esophagitis, gastritis and duodenitis. At discharge patient has tolerated his diet. Patient will continue with a GI soft diet. Patient will continue with Protonix 40 mg 1 pill twice daily. Recommend follow up with GI in 1-2 weeks to follow up this hospitalization. Patient will be provided education on gastritis, esophagitis, duodenitis, and hiatal hernia. Patient will also continue with Reglan 5 mg 3 times a day as needed for nausea. 3. Patient with severe protein malnutrition. Patient will continue with a GI soft diet. 4. Patient with diabetes mellitus type 2 insulin dependent. A1c elevated at 13.3. Patient needs better diabetic control. Patient will continue with insulin 70/30 80 units subcu twice daily. Recommend to monitor blood sugar at least twice daily. If blood sugar remains above 140 fasting and greater than 200 after each meal all then his insulin regiment will need to be adjusted for better control. This can be done with the help of his PCP. Patient would benefit with endocrinology evaluation as an outpatient for better control. 5. Patient with CAD with prior stent. Patient previously taking lisinopril for his blood pressure. This has been discontinued due to low blood pressure. Recommend to monitor blood pressure daily. If his blood pressure remains elevated greater than 140 fasting and then lisinopril 5 mg daily can be restarted. At discharge patient will continue with Plavix 75 mg daily. Further adjustment in medication can be done by his PCP or cardiology. 6. Patient with chronic diastolic CHF. At discharge she will continue with a 1500 cc per day fluid restriction and low-salt diet. He is to monitor his weight daily. If his weight increases by more than 5 lb he is to contact his PCP for further recommendation. At discharge he will continue his diuretic therapy including Lasix 40 mg 1 pill twice daily, Aldactone 25 mg at bedtime, and Diamox ER 500 mg 1 pill twice daily. Recommend to recheck BMP in 1-2 weeks to monitor his progress. Further adjustment in medication can be done by his PCP. 7. Patient with cirrhosis without ascites. Patient will continue with above recommendations on fluid restriction and diuretic therapy. Recommend follow up with GI as an outpatient to further address. 8. Patient with chronic renal disease stage II. This has remained stable. Patient will continue with above fluid recommendations. Recommend follow up with nephrology as an outpatient to further monitor. Recommend no further use of nonsteroidal anti-inflammatories. Future medications will need to be renally dose. 9. Patient with history of CVA. Patient will continue with Plavix 25 mg daily. 10. Patient with chronic pain and diabetic neuropathy. At discharge she will continue with gabapentin 900 mg twice daily. Patient will be provided lidocaine patch. Recommend to establish care with pain management to further address. 11. Patient with history of seizure disorder. At discharge he will continue with Keppra 250 mg 1 pill twice daily. Recommend follow up with neurology as directed. 12. Patient with history of multiple pulmonary nodules. This has been addressed in the past. Recommend to repeat CT scan in 3 months to monitors progress. Patient would benefit with pulmonology evaluation as an outpatient to further address. Diet: AHA Activity: Ad francisca Time spent managing pt's care (in minutes): 55
[2019-06-08 10:35] VITALS: O2SAT 100
[2019-06-08 10:55] VITALS: TEMP 97.9
[2019-06-08] MEDS: INSULIN 70/30 100 UNITS/ML SQ SCH (12:05)
--- NOTE | 2019-06-08 12:17 | P.PN ---
Subjective Date of Service: 06/08/19 Primary Care Provider: Dr. Priest; GI-Dr. La Chief Complaint: Abdominal pain, N/V Subjective: Improving (He feels better on Reglan therapy. E-mycin not available at hospital.) Review of Systems 10-point ROS is otherwise unremarkable Gastrointestinal: Nausea (Improved) Physical Examination - Vital Signs Temperature: 97.9 F Blood Pressure: 104/61 Pulse: 82 Respirations: 15 Pulse Ox (%): 100 - Physical Exam General: Alert, In no apparent distress, Oriented x3, Cooperative HEENT: Atraumatic, Normocephalic, PERRLA, EOMI Neck: Supple Cardiovascular: Normal pulses, Edema (2+ in LEs ) Gastrointestinal: Soft and benign, No tenderness, No rebound, No guarding Neurological: Normal speech, Normal strength at 5/5 x4 extr - Studies Microbiology Data (last 24 hrs): 06/05/19 11:50 Stool Culture & Sensitivity - Final 06/05/19 07:30 Clean Catch Urine [place] Count - Final <10,000 CFU/ML. 06/05/19 07:30 Clean Catch Urine - Final No growth. Assessment And Plan - Current Problems (Diagnosis) (1) Nausea & vomiting Current Visit: Yes Status: Acute (2) Epigastric abdominal pain Current Visit: Yes Status: Acute (3) Diabetes Current Visit: No Status: Chronic Qualifiers: - Plan REC: 1) GI clinic f/u 2) PPI therapy 3) consider E-mycin low dose qid 4) optimize diabetes control (glucose at home 400-700 range he verbally reports)
[2019-06-08 13:09] LABS: C.diff Antigen/Toxin Ag neg : Tox neg (NEG : NEG)
== END 2019-06-08 14:17 | disposition home or self-care (01) | DRG 73 ==
LOC: ER 01:15 → ERHOLD 05:34 → 4TH 06:16 → OBSVTOIN 06-06 13:59
PROVIDERS: ADMIT Internal Medicine; ATTEND Internal Medicine
PROC: 0DB68ZX Excision of Stomach, Via Natural or Artificial Opening Endoscopic, Diagnostic (ICD-10-PCS; principal; 2019-06-07 12:00)
DX: E11.43 Type 2 diabetes mellitus with diabetic autonomic (poly)neuropathy (principal); E43 Unspecified severe protein-calorie malnutrition; I13.0 Hypertensive heart and chronic kidney disease with heart failure and stage 1 through stage 4 chronic kidney disease, or unspecified chronic kidney disease; I50.32 Chronic diastolic (congestive) heart failure; E11.65 Type 2 diabetes mellitus with hyperglycemia; K31.84 Gastroparesis; K29.80 Duodenitis without bleeding; K44.9 Diaphragmatic hernia without obstruction or gangrene; K29.70 Gastritis, unspecified, without bleeding; K20.9 Esophagitis, unspecified; Z68.31 Body mass index [BMI] 31.0-31.9, adult; E83.42 Hypomagnesemia; E83.39 Other disorders of phosphorus metabolism; I25.10 Atherosclerotic heart disease of native coronary artery without angina pectoris; K74.60 Unspecified cirrhosis of liver; E11.22 Type 2 diabetes mellitus with diabetic chronic kidney disease; N18.2 Chronic kidney disease, stage 2 (mild); E11.319 Type 2 diabetes mellitus with unspecified diabetic retinopathy without macular edema; E66.9 Obesity, unspecified; F41.8 Other specified anxiety disorders; G89.29 Other chronic pain; G40.909 Epilepsy, unspecified, not intractable, without status epilepticus; R91.8 Other nonspecific abnormal finding of lung field; E78.2 Mixed hyperlipidemia; Z86.73 Personal history of transient ischemic attack (TIA), and cerebral infarction without residual deficits; Z95.5 Presence of coronary angioplasty implant and graft
CPT/HCPCS: 36415; 71045; 74176; 80048; 80053; 80076; 82947; 83690; 83735; 83880; 84100; 84443; 84484; 85025; 85610; 85730; 87045; 87046; 87086; 87088; 87324; 87449; 88305; 88312; 89055; 93005; 94760; 96372; 99285; C9113; G0378; J1170; J1644; J1815; J2310; J2370; J2405; J2704; J2765; J3010; J7030; J7799

== ENCOUNTER 2019-06-08 21:58 | Emergency (ER) | payer BC ==
--- OUTSIDE RECORDS SUMMARY | 2019-06-08 22:01 | XMS REPORT ---
:1965 Author Organization [facility] Address [address] [place] [address] Care Team Providers Name Role Phone BASHIR [...] (BEAKER) (test 119 mg/dL 70-110 TESTED AT [facility] [address] [place] [address] hjkl=7455) [facility] [address] BASIC METABOLIC [id number] 06:16:00 Test Item Value Reference Range Comments SODIUM (BEAKER) (test 139 meq/L 136-145 lqbn=548) POTASSIUM (BEAKER) (test 4.5 meq/L 3.5-5.1 kdqs=802) CHLORIDE (BEAKER) (test 109 meq/L 98-107 zdvh=115) CO2 (BEAKER) (test 23 meq/L 22-29 ybgw=219) BLOOD UREA NITROGEN 30 mg/dL 7-21 (BEAKER) (test ufzr=345) CREATININE (BEAKER) (test 1.87 mg/dL 0.57-1.25 uacm=132) GLUCOSE RANDOM (BEAKER) 219 mg/dL 70-105 (test ictx=432) CALCIUM (BEAKER) (test 8.9 mg/dL 8.4-10.2 vjdv=619) EGFR (BEAKER) (test 38 mL/min/1.73 sq m ESTIMATED GFR IS NOT nocb=8003) ACCURATE CREATININE CLEARANCE IN PREDICTING GLOMERULAR FILTRATION RATE. ESTIMATED GFR IS NOT APPLICABLE FOR DIALYSIS PATIENTS. CBC W/PLT COUNT & AUTO [id number] 05:42:00 Test Item Value Reference Range Comments WHITE BLOOD CELL COUNT (BEAKER) (test xxht=257) 4.1 K/ L 3.5-10.5 RED BLOOD CELL COUNT (BEAKER) (test nzqe=255) 3.72 M/ L 4.63-6.08 HEMOGLOBIN (BEAKER) (test egyj=118) 11.6 GM/DL 13.7-17.5 HEMATOCRIT (BEAKER) (test onze=104) 33.6 % 40.1-51.0 MEAN CORPUSCULAR VOLUME (BEAKER) (test qfwy=420) 90.3 fL 79.0-92.2 MEAN CORPUSCULAR HEMOGLOBIN (BEAKER) (test 31.2 pg 25.7-32.2 ynhl=512) MEAN CORPUSCULAR HEMOGLOBIN CONC (BEAKER) (test 34.5 GM/DL 32.3-36.5 hrmq=307) RED CELL DISTRIBUTION WIDTH (BEAKER) (test 13.7 % 11.6-14.4 lmvs=404) PLATELET COUNT (BEAKER) (test fgqw=580) 170 K/CU MM 150-450 MEAN PLATELET VOLUME (BEAKER) (test fpsq=858) 11.8 fL 9.4-12.4 NUCLEATED RED BLOOD CELLS (BEAKER) (test 0 /100 WBC 0-0 mcoa=010) NEUTROPHILS RELATIVE PERCENT (BEAKER) (test 53 % yxow=207) LYMPHOCYTES RELATIVE PERCENT (BEAKER) (test 32 % laja=375) MONOCYTES RELATIVE PERCENT (BEAKER) (test 7 % juyu=113) EOSINOPHILS RELATIVE PERCENT (BEAKER) (test 6 % cbaa=012) BASOPHILS RELATIVE PERCENT (BEAKER) (test 1 % hanp=123) NEUTROPHILS ABSOLUTE COUNT (BEAKER) (test 2.17 K/ L 1.78-5.38 mgbg=186) LYMPHOCYTES ABSOLUTE COUNT (BEAKER) (test 1.31 K/ L 1.32-3.57 xlcj=919) MONOCYTES ABSOLUTE COUNT (BEAKER) (test 0.29 K/ L 0.30-0.82 gazb=208) EOSINOPHILS ABSOLUTE COUNT (BEAKER) (test 0.26 K/ L 0.04-0.54 xuiv=432) BASOPHILS ABSOLUTE COUNT (BEAKER) (test 0.03 K/ L 0.01-0.08 lgrr=508) IMMATURE GRANULOCYTES-RELATIVE PERCENT (BEAKER) 1 % 0-1 (test vtsl=2615) POCT-GLUCOSE [id number] 20:34:00 Test Item Value Reference Range Comments POC-GLUCOSE METER (BEAKER) 205 mg/dL 70-110 TESTED AT [address] (test enuo=6450) [facility] [address] CT, CHEST, WITHOUT [id number] 18:24:00FINAL REPORT TECHNIQUE: CT scan of the [...] [place] Verified Date/Time: 01/10/2019 18:24:57 Reading Location: [facility] C013Y CT Body Reading Room POCT-GLUCOSE [id number] 17:31 :00 Test Item Value Reference Range Comments POC-GLUCOSE METER (BEAKER) 183 mg/dL 70-110 TESTED AT [address] (test vymj=2252) [facility] [address] CT, BRAIN, WITHOUT [id number] 14:47:00FINAL REPORT CT, BRAIN, WITHOUT CONTRAST INDICATION: [...] Lubna Lr MDReport Verified Date/Time: 01/10/2019 14:47:25 -[id number] 11:36:00 Test Item Value Reference Range Comments D-DIMER QUANTITATIVE (BEAKER) (test hoag=470) 2.14 MG/L FEU <0.50 Intended Use: The [...] within 95-100% range.RAD, CHEST, 1 VIEW, NON [id number] 08:17:00Reason for exam:->chest painShould this be performed [...] MDReport Verified Date/Time: 01/10/2019 08:17:19 Reading Location: [facility] B1 C013X Ortho Consult Reading Room TROPONIN [id number] 07:02:00 Test Item Value Reference Range Comments TROPONIN I (BEAKER) (test fiyn=890) 0.02 ng/mL 0.00-0.03 Troponin I (TnI) levels [...] NATRIURETIC PEPTIDE (BEAKER) (test 130 pg/mL 0-100 vuiy=335) BASIC METABOLIC [id number] 06:51:00 Test Item Value Reference Range Comments SODIUM (BEAKER) (test 137 meq/L 136-145 oolf=657) POTASSIUM (BEAKER) (test 4.3 meq/L 3.5-5.1 ahqj=742) CHLORIDE (BEAKER) (test 108 meq/L 98-107 orxp=266) CO2 (BEAKER) (test 21 meq/L 22-29 jdlz=048) BLOOD UREA NITROGEN 34 mg/dL 7-21 (BEAKER) (test qcpk=100) CREATININE (BEAKER) (test 2.00 mg/dL 0.57-1.25 ygnn=444) GLUCOSE RANDOM (BEAKER) 169 mg/dL 70-105 (test cpzc=095) CALCIUM (BEAKER) (test 8.7 mg/dL 8.4-10.2 qtha=044) EGFR (BEAKER) (test 35 mL/min/1.73 sq m ESTIMATED GFR IS NOT ochs=0792) ACCURATE CREATININE CLEARANCE IN PREDICTING GLOMERULAR FILTRATION RATE. ESTIMATED GFR IS NOT APPLICABLE FOR DIALYSIS PATIENTS. CBC W/PLT COUNT & AUTO [id number] 06:27:00 Test Item Value Reference Range Comments WHITE BLOOD CELL COUNT (BEAKER) (test ahyf=252) 5.0 K/ L 3.5-10.5 RED BLOOD CELL COUNT (BEAKER) (test qjqr=135) 3.44 M/ L 4.63-6.08 HEMOGLOBIN (BEAKER) (test hllq=491) 10.8 GM/DL 13.7-17.5 HEMATOCRIT (BEAKER) (test sxok=487) 31.5 % 40.1-51.0 MEAN CORPUSCULAR VOLUME (BEAKER) (test stza=736) 91.6 fL 79.0-92.2 MEAN CORPUSCULAR HEMOGLOBIN (BEAKER) (test 31.4 pg 25.7-32.2 cvry=124) MEAN CORPUSCULAR HEMOGLOBIN CONC (BEAKER) (test 34.3 GM/DL 32.3-36.5 adwq=539) RED CELL DISTRIBUTION WIDTH (BEAKER) (test 13.7 % 11.6-14.4 tijt=951) PLATELET COUNT (BEAKER) (test tjgr=400) 146 K/CU MM 150-450 MEAN PLATELET VOLUME (BEAKER) (test qecm=652) 12.1 fL 9.4-12.4 NUCLEATED RED BLOOD CELLS (BEAKER) (test 0 /100 WBC 0-0 jawk=084) NEUTROPHILS RELATIVE PERCENT (BEAKER) (test 48 % dlga=246) LYMPHOCYTES RELATIVE PERCENT (BEAKER) (test 37 % iart=123) MONOCYTES RELATIVE PERCENT (BEAKER) (test 8 % bdad=875) EOSINOPHILS RELATIVE PERCENT (BEAKER) (test 6 % zbix=312) BASOPHILS RELATIVE PERCENT (BEAKER) (test 1 % kxwm=856) NEUTROPHILS ABSOLUTE COUNT (BEAKER) (test 2.42 K/ L 1.78-5.38 mwvo=982) LYMPHOCYTES ABSOLUTE COUNT (BEAKER) (test 1.83 K/ L 1.32-3.57 astt=820) MONOCYTES ABSOLUTE COUNT (BEAKER) (test 0.40 K/ L 0.30-0.82 pprd=050) EOSINOPHILS ABSOLUTE COUNT (BEAKER) (test 0.30 K/ L 0.04-0.54 xxmq=159) BASOPHILS ABSOLUTE COUNT (BEAKER) (test 0.04 K/ L 0.01-0.08 hwqp=708) IMMATURE GRANULOCYTES-RELATIVE PERCENT (BEAKER) 0 % 0-1 (test vfie=8143) TROPONIN [id number] 23:52:00 Test Item Value Reference Range Comments TROPONIN I (BEAKER) (test ypvc=203) 0.03 ng/mL 0.00-0.03 Troponin I (TnI) levels [...] acidosis, acute neurological disease, and persistent tachyarrhythmia.POCT-GLUCOSE [id number] 22:03:00 Test Item Value Reference Range Comments POC-GLUCOSE METER (BEAKER) 315 mg/dL 70-110 TESTED AT [address] (test ssfz=8518) [facility] [address] POCT-GLUCOSE [id number] 20:02:00 Test Item Value Reference Range Comments POC-GLUCOSE METER (BEAKER) 250 mg/dL 70-110 TESTED AT [address] (test mtic=2206) [place] [address] TROPONIN [id number] 19:05:00 Test Item Value Reference Range Comments TROPONIN I (BEAKER) (test ajzy=820) 0.04 ng/mL 0.00-0.03 Troponin I (TnI) levels [...] acidosis, acute neurological disease, and persistent tachyarrhythmia.POCT-GLUCOSE [id number] 17:40:00 Test Item Value Reference Range Comments POC-GLUCOSE METER (BEAKER) 246 mg/dL 70-110 TESTED AT [facility] [address] [facility] (test rmrg=1043) [facility] [address] POCT-GLUCOSE [id number] 08:11:00 Test Item Value Reference Range Comments POC-GLUCOSE METER (BEAKER) 243 mg/dL 70-110 TESTED AT [facility] [address] [facility] (test rfev=6498) [facility] [address] BASIC METABOLIC [id number] 05:04:00 Test Item Value Reference Range Comments SODIUM (BEAKER) (test 138 meq/L 136-145 zpnk=861) POTASSIUM (BEAKER) (test 4.5 meq/L 3.5-5.1 wbfx=112) CHLORIDE (BEAKER) (test 110 meq/L 98-107 ufnz=854) CO2 (BEAKER) (test 22 meq/L 22-29 jdew=117) BLOOD UREA NITROGEN 34 mg/dL 7-21 (BEAKER) (test oxny=093) CREATININE (BEAKER) (test 2.01 mg/dL 0.57-1.25 bjge=850) GLUCOSE RANDOM (BEAKER) 243 mg/dL 70-105 (test ctga=243) CALCIUM (BEAKER) (test 8.5 mg/dL 8.4-10.2 fegs=503) EGFR (BEAKER) (test 35 mL/min/1.73 sq m ESTIMATED GFR IS NOT hzmd=7687) ACCURATE CREATININE CLEARANCE IN PREDICTING GLOMERULAR FILTRATION RATE. ESTIMATED GFR IS NOT APPLICABLE FOR DIALYSIS PATIENTS. [id number] 04:56:00 Test Item Value Reference Range Comments PARTIAL THROMBOPLASTIN TIME (BEAKER) (test 35.0 seconds 22.5-36.0 zhcp=722) CBC W/PLT COUNT & AUTO [id number] 04:48:00 Test Item Value Reference Range Comments WHITE BLOOD CELL COUNT (BEAKER) (test wjoe=679) 4.9 K/ L 3.5-10.5 RED BLOOD CELL COUNT (BEAKER) (test abqj=482) 3.36 M/ L 4.63-6.08 HEMOGLOBIN (BEAKER) (test njxt=668) 10.5 GM/DL 13.7-17.5 HEMATOCRIT (BEAKER) (test rtxy=530) 30.5 % 40.1-51.0 MEAN CORPUSCULAR VOLUME (BEAKER) (test vmyp=100) 90.8 fL 79.0-92.2 MEAN CORPUSCULAR HEMOGLOBIN (BEAKER) (test 31.3 pg 25.7-32.2 ywsu=959) MEAN CORPUSCULAR HEMOGLOBIN CONC (BEAKER) (test 34.4 GM/DL 32.3-36.5 eexo=332) RED CELL DISTRIBUTION WIDTH (BEAKER) (test 13.5 % 11.6-14.4 ixio=269) PLATELET COUNT (BEAKER) (test xffo=415) 116 K/CU MM 150-450 MEAN PLATELET VOLUME (BEAKER) (test fnmv=265) 11.9 fL 9.4-12.4 NUCLEATED RED BLOOD CELLS (BEAKER) (test 0 /100 WBC 0-0 gyme=952) NEUTROPHILS RELATIVE PERCENT (BEAKER) (test 52 % dvkf=194) LYMPHOCYTES RELATIVE PERCENT (BEAKER) (test 36 % eoho=142) MONOCYTES RELATIVE PERCENT (BEAKER) (test 8 % gylw=627) EOSINOPHILS RELATIVE PERCENT (BEAKER) (test 4 % dxsk=552) BASOPHILS RELATIVE PERCENT (BEAKER) (test 0 % dpnx=523) NEUTROPHILS ABSOLUTE COUNT (BEAKER) (test 2.51 K/ L 1.78-5.38 jfbf=756) LYMPHOCYTES ABSOLUTE COUNT (BEAKER) (test 1.74 K/ L 1.32-3.57 rsop=949) MONOCYTES ABSOLUTE COUNT (BEAKER) (test 0.38 K/ L 0.30-0.82 wyqf=432) EOSINOPHILS ABSOLUTE COUNT (BEAKER) (test 0.18 K/ L 0.04-0.54 ielb=897) BASOPHILS ABSOLUTE COUNT (BEAKER) (test 0.02 K/ L 0.01-0.08 iqgi=670) IMMATURE GRANULOCYTES-RELATIVE PERCENT (BEAKER) 1 % 0-1 (test wrip=2748) POCT-GLUCOSE [id number] 22:08:00 Test Item Value Reference Range Comments POC-GLUCOSE METER (BEAKER) 364 mg/dL 70-110 Notified HAYLEE BOSS/TESTED AT [facility] (test dvoc=1946) [address] [facility] [address] POCT-GLUCOSE [id number] 17:05:00 Test Item Value Reference Range Comments POC-GLUCOSE METER (BEAKER) 389 mg/dL 70-110 Notified HAYLEE BOSS/TESTED AT [facility] (test frqn=0754) [address] [facility] [address] BASIC METABOLIC [id number] 16:28:00 Test Item Value Reference Range Comments SODIUM (BEAKER) (test 136 meq/L 136-145 usig=291) POTASSIUM (BEAKER) (test 4.7 meq/L 3.5-5.1 rrhi=952) CHLORIDE (BEAKER) (test 107 meq/L 98-107 svcl=320) CO2 (BEAKER) (test 23 meq/L 22-29 gzvj=481) BLOOD UREA NITROGEN 35 mg/dL 7-21 (BEAKER) (test becx=206) CREATININE (BEAKER) (test 2.22 mg/dL 0.57-1.25 zhro=344) GLUCOSE RANDOM (BEAKER) 358 mg/dL 70-105 (test aopt=573) CALCIUM (BEAKER) (test 8.7 mg/dL 8.4-10.2 utqk=321) EGFR (BEAKER) (test 31 mL/min/1.73 sq m ESTIMATED GFR IS NOT gcee=0437) ACCURATE CREATININE CLEARANCE IN PREDICTING GLOMERULAR FILTRATION RATE. ESTIMATED GFR IS NOT APPLICABLE FOR DIALYSIS PATIENTS. [id number] 16:26:00 Test Item Value Reference Range Comments PROTIME (BEAKER) (test cuhu=787) 13.4 seconds 11.9-14.2 INR (BEAKER) (test vylq=929) 1.1 <=5.9 PARTIAL THROMBOPLASTIN TIME (BEAKER) (test 32.0 seconds 22.5-36.0 olsi=459) Effective 09/23/2018: PT Reference Range ChangeNew: 11.9-14.2 Previous: 11.7- 14.7RECOMMENDED COUMADIN/WARFARIN INR THERAPY RANGESSTANDARD DOSE: 2.0-3.0 Includes: PROPHYLAXIS for venous thrombosis, systemic embolization; TREATMENT for venous thrombosis and/or pulmonary embolus.HIGH RISK: Target INR is2.5-3.5 for patients wiht mechanical heart valves.[id number] 16:26:00 Test Item Value Reference Range Comments PARTIAL THROMBOPLASTIN TIME (BEAKER) (test 32.0 seconds 22.5-36.0 rwvb=578) POCT-GLUCOSE [id number] 12:06:00 Test Item Value Reference Range Comments POC-GLUCOSE METER (BEAKER) 321 mg/dL 70-110 Notified HAYLEE BOSS/TESTED AT [facility] (test tjmv=1207) [address] [facility] [address] POCT-GLUCOSE [id number] 08:29:00 Test Item Value Reference Range Comments POC-GLUCOSE METER (BEAKER) 263 mg/dL 70-110 TESTED AT [place] [address] [facility] (test zoux=9314) [facility] [address] [id number] 04:54:00 Test Item Value Reference Range Comments PARTIAL THROMBOPLASTIN TIME (BEAKER) (test 31.0 seconds 22.5-36.0 jbsf=364) CBC W/PLT COUNT & AUTO [id number] 04:43:00 Test Item Value Reference Range Comments WHITE BLOOD CELL COUNT (BEAKER) (test mnwl=914) 6.6 K/ L 3.5-10.5 RED BLOOD CELL COUNT (BEAKER) (test qhie=242) 3.45 M/ L 4.63-6.08 HEMOGLOBIN (BEAKER) (test zcav=641) 10.9 GM/DL 13.7-17.5 HEMATOCRIT (BEAKER) (test sazl=149) 30.8 % 40.1-51.0 MEAN CORPUSCULAR VOLUME (BEAKER) (test xseq=242) 89.3 fL 79.0-92.2 MEAN CORPUSCULAR HEMOGLOBIN (BEAKER) (test 31.6 pg 25.7-32.2 cmon=594) MEAN CORPUSCULAR HEMOGLOBIN CONC (BEAKER) (test 35.4 GM/DL 32.3-36.5 svrc=665) RED CELL DISTRIBUTION WIDTH (BEAKER) (test 13.5 % 11.6-14.4 inun=076) PLATELET COUNT (BEAKER) (test dqfl=468) 138 K/CU MM 150-450 MEAN PLATELET VOLUME (BEAKER) (test neln=412) 12.3 fL 9.4-12.4 NUCLEATED RED BLOOD CELLS (BEAKER) (test 0 /100 WBC 0-0 uevt=391) NEUTROPHILS RELATIVE PERCENT (BEAKER) (test 64 % ktjq=737) LYMPHOCYTES RELATIVE PERCENT (BEAKER) (test 24 % lifb=767) MONOCYTES RELATIVE PERCENT (BEAKER) (test 8 % wofz=696) EOSINOPHILS RELATIVE PERCENT (BEAKER) (test 3 % wgat=795) BASOPHILS RELATIVE PERCENT (BEAKER) (test 1 % rdmf=999) NEUTROPHILS ABSOLUTE COUNT (BEAKER) (test 4.22 K/ L 1.78-5.38 qali=249) LYMPHOCYTES ABSOLUTE COUNT (BEAKER) (test 1.54 K/ L 1.32-3.57 dhya=764) MONOCYTES ABSOLUTE COUNT (BEAKER) (test 0.53 K/ L 0.30-0.82 xsga=480) EOSINOPHILS ABSOLUTE COUNT (BEAKER) (test 0.20 K/ L 0.04-0.54 wkid=465) BASOPHILS ABSOLUTE COUNT (BEAKER) (test 0.03 K/ L 0.01-0.08 rykx=570) IMMATURE GRANULOCYTES-RELATIVE PERCENT (BEAKER) 1 % 0-1 (test oquw=4158) POCT-GLUCOSE [id number] 22:11:00 Test Item Value Reference Range Comments POC-GLUCOSE METER (BEAKER) 319 mg/dL 70-110 Notified HAYLEE BOSS/TESTED AT [facility] (test vjxg=8060) [address] [place] [address] [id number] 20:11:00 Test Item Value Reference Range Comments PARTIAL THROMBOPLASTIN TIME (BEAKER) (test 33.3 seconds 22.5-36.0 xhkn=632) POCT-GLUCOSE [id number] 18:49:00 Test Item Value Reference Range Comments POC-GLUCOSE METER (BEAKER) 309 mg/dL 70-110 TESTED AT [address] (test phvf=6389) [place] [address] POCT-GLUCOSE [id number] 14:48:00 Test Item Value Reference Range Comments POC-GLUCOSE METER (BEAKER) 161 mg/dL 70-110 TESTED AT [address] (test vkvq=8704) [place] [address] POCT-GLUCOSE [id number] 14:46:00 Test Item Value Reference Range Comments POC-GLUCOSE METER (BEAKER) 159 mg/dL 70-110 TESTED AT [address] (test bbrr=4065) [place] [address] TROPONIN [id number] 13:58:00 Test Item Value Reference Range Comments TROPONIN I (BEAKER) (test pafl=392) < ng/mL 0.00-0.03 Troponin I (TnI) levels [...] failure, acidosis, acute neurological disease, and persistent tachyarrhythmia.[id number] 12:25:00 Test Item Value Reference Range Comments PARTIAL THROMBOPLASTIN TIME (BEAKER) (test 30.3 seconds 22.5-36.0 rsnb=228) POCT-GLUCOSE [id number] 12:18:00 Test Item Value Reference Range Comments POC-GLUCOSE METER (BEAKER) 168 mg/dL 70-110 TESTED AT [address] (test hogs=2918) [place] [address] POCT-GLUCOSE [id number] 11:06:00 Test Item Value Reference Range Comments POC-GLUCOSE METER (BEAKER) 180 mg/dL 70-110 TESTED AT [address] (test gasq=2220) [place] [address] POCT-GLUCOSE [id number] 10:21:00 Test Item Value Reference Range Comments POC-GLUCOSE METER (BEAKER) 195 mg/dL 70-110 TESTED AT [address] (test apqc=8944) [place] [address] POCT-GLUCOSE [id number] 10:21:00 Test Item Value Reference Range Comments POC-GLUCOSE METER (BEAKER) 180 mg/dL 70-110 TESTED AT [address] (test iekh=2505) [facility] [address] POCT-GLUCOSE [id number] 08:06:00 Test Item Value Reference Range Comments POC-GLUCOSE METER (BEAKER) 218 mg/dL 70-110 TESTED AT [address] (test ybqp=2450) [place] [address] TROPONIN [id number] 07:00:00 Test Item Value Reference Range Comments TROPONIN I (BEAKER) (test uosj=323) 0.01 ng/mL 0.00-0.03 Troponin I (TnI) levels [...] afterwardsOnce on admission and Daily AM afterwardsPOCT-GLUCOSE [id number] 06:58:00 Test Item Value Reference Range Comments POC-GLUCOSE METER (BEAKER) 248 mg/dL 70-110 TESTED AT [facility] [address] [facility] (test qkhq=4066) [facility] [address] [id number] 06:54:00 Test Item Value Reference Range Comments PHOSPHORUS (BEAKER) (test ucim=341) 2.5 mg/dL 2.3-4.7 Once on admission and Daily AM afterwardsOnce on admission and Daily AM afterwardsOnce on admission and Daily AM [id number] 06:54:00 Test Item Value Reference Range Comments MAGNESIUM (BEAKER) (test iiub=932) 2.2 mg/dL 1.6-2.6 Once on admission and Daily AM afterwardsOnce on admission and Daily AM afterwardsOnce on admission and Daily AM afterwardsBASIC METABOLIC [id number] 06:54:00 Test Item Value Reference Range Comments SODIUM (BEAKER) (test 137 meq/L 136-145 otgp=629) POTASSIUM (BEAKER) (test 4.4 meq/L 3.5-5.1 xsnc=545) CHLORIDE (BEAKER) (test 111 meq/L 98-107 hhys=724) CO2 (BEAKER) (test 22 meq/L 22-29 nkbc=299) BLOOD UREA NITROGEN 37 mg/dL 7-21 (BEAKER) (test urdn=242) CREATININE (BEAKER) (test 1.93 mg/dL 0.57-1.25 xhco=608) GLUCOSE RANDOM (BEAKER) 253 mg/dL 70-105 (test ciep=282) CALCIUM (BEAKER) (test 8.1 mg/dL 8.4-10.2 jfjw=479) EGFR (BEAKER) (test 37 mL/min/1.73 sq m ESTIMATED GFR IS NOT ihfq=2994) ACCURATE CREATININE CLEARANCE IN PREDICTING GLOMERULAR FILTRATION RATE. ESTIMATED GFR IS NOT APPLICABLE FOR DIALYSIS PATIENTS. Once on admission and Daily AM afterwardsOnce on admission and Daily AM afterwardsOnce on admission and Daily AM afterwardsCBC W/PLT COUNT & AUTO [id number] 06:42:00 Test Item Value Reference Range Comments WHITE BLOOD CELL COUNT (BEAKER) (test dalq=619) 4.8 K/ L 3.5-10.5 RED BLOOD CELL COUNT (BEAKER) (test vlae=563) 3.50 M/ L 4.63-6.08 HEMOGLOBIN (BEAKER) (test rqqk=849) 11.0 GM/DL 13.7-17.5 HEMATOCRIT (BEAKER) (test azih=377) 31.7 % 40.1-51.0 MEAN CORPUSCULAR VOLUME (BEAKER) (test qqdp=764) 90.6 fL 79.0-92.2 MEAN CORPUSCULAR HEMOGLOBIN (BEAKER) (test 31.4 pg 25.7-32.2 thaf=852) MEAN CORPUSCULAR HEMOGLOBIN CONC (BEAKER) (test 34.7 GM/DL 32.3-36.5 adsa=809) RED CELL DISTRIBUTION WIDTH (BEAKER) (test 13.5 % 11.6-14.4 ibwn=044) PLATELET COUNT (BEAKER) (test phlm=313) 118 K/CU MM 150-450 MEAN PLATELET VOLUME (BEAKER) (test jlhn=132) 12.1 fL 9.4-12.4 NUCLEATED RED BLOOD CELLS (BEAKER) (test 0 /100 WBC 0-0 jtbj=574) NEUTROPHILS RELATIVE PERCENT (BEAKER) (test 42 % idtp=635) LYMPHOCYTES RELATIVE PERCENT (BEAKER) (test 46 % awpt=749) MONOCYTES RELATIVE PERCENT (BEAKER) (test 7 % eorb=967) EOSINOPHILS RELATIVE PERCENT (BEAKER) (test 4 % ryff=652) BASOPHILS RELATIVE PERCENT (BEAKER) (test 1 % waym=268) NEUTROPHILS ABSOLUTE COUNT (BEAKER) (test 2.00 K/ L 1.78-5.38 uoac=896) LYMPHOCYTES ABSOLUTE COUNT (BEAKER) (test 2.22 K/ L 1.32-3.57 ftyb=615) MONOCYTES ABSOLUTE COUNT (BEAKER) (test 0.34 K/ L 0.30-0.82 mdan=121) EOSINOPHILS ABSOLUTE COUNT (BEAKER) (test 0.20 K/ L 0.04-0.54 zxsv=825) BASOPHILS ABSOLUTE COUNT (BEAKER) (test 0.04 K/ L 0.01-0.08 tfsf=853) IMMATURE GRANULOCYTES-RELATIVE PERCENT (BEAKER) 1 % 0-1 (test rtrp=8475) [id number] 06:28:00 Test Item Value Reference Range Comments PARTIAL THROMBOPLASTIN TIME (BEAKER) (test 30.6 seconds 22.5-36.0 mcoq=833) POCT-GLUCOSE [id number] 06:01:00 Test Item Value Reference Range Comments POC-GLUCOSE METER (BEAKER) 266 mg/dL 70-110 TESTED AT [address] (test wswi=9316) [place] [id number] POCT-GLUCOSE [id number] 04:57:00 Test Item Value Reference Range Comments POC-GLUCOSE METER (BEAKER) 271 mg/dL 70-110 TESTED AT [address] (test vzuj=2987) [facility] [address] POCT-GLUCOSE [id number] 04:05:00 Test Item Value Reference Range Comments POC-GLUCOSE METER (BEAKER) 308 mg/dL 70-110 Notified AHYLEE BOSS/TESTED AT [facility] (test efwt=2667) [address] [place] [address] POCT-GLUCOSE [id number] 02:57:00 Test Item Value Reference Range Comments POC-GLUCOSE METER (BEAKER) 343 mg/dL 70-110 Notified HAYLEE BOSS/TESTED AT [facility] (test lgtz=0315) [address] [place] [address] RAD, CHEST, 1 VIEW, NON [id number] 02:27:00Reason for exam:->mediastinal wideningShould this be performed [...] Wilmer Kline Verified Date/Time: 01/07/2019 02:27:45 POCT-GLUCOSE [id number] 01:57:00 Test Item Value Reference Range Comments POC-GLUCOSE METER (BEAKER) 369 mg/dL 70-110 TESTED AT [address] (test luax=6414) [place] [id number] POCT-GLUCOSE [id number] 01:06:00 Test Item Value Reference Range Comments POC-GLUCOSE METER (BEAKER) 395 mg/dL 70-110 Notified HAYLEE BOSS/TESTED AT [facility] (test cwnm=5204) [address] [place] [address] TROPONIN [id number] 00:36:00 Test Item Value Reference Range Comments TROPONIN I (BEAKER) (test hets=214) 0.01 ng/mL 0.00-0.03 Troponin I (TnI) levels [...] NATRIURETIC PEPTIDE (BEAKER) (test 151 pg/mL 0-100 eibb=404) [id number] 00:19:00 Test Item Value Reference Range Comments PARTIAL THROMBOPLASTIN TIME (BEAKER) (test 28.2 seconds 22.5-36.0 vuto=628) Prior to initiating heparinPOCT-GLUCOSE [id number] 00:16:00 Test Item Value Reference Range Comments POC-GLUCOSE METER (BEAKER) 413 mg/dL 70-110 TESTED AT [address] (test ukze=7628) [place] [id number] POCT-GLUCOSE [id number] 23:10:00 Test Item Value Reference Range Comments POC-GLUCOSE METER (BEAKER) 452 mg/dL 70-110 Notified HAYLEE BOSS/TESTED AT [facility] (test pqyq=5921) [address] [facility] [address] POCT-GLUCOSE [id number] 22:06:00 Test Item Value Reference Range Comments POC-GLUCOSE METER (BEAKER) 383 mg/dL 70-110 TESTED AT [facility] [address] (test vkmr=0023) [facility] [address] CT, BRAIN, WITHOUT [id number] 21:38:00FINAL REPORT CT Head without contrast CLINICAL [...] by: WILMER KLINE MD on 02/2019 09:38 [facility] [id number] 21:12:00 Test Item Value Reference Range Comments SODIUM (BEAKER) (test 134 meq/L 136-145 fhgs=209) POTASSIUM (BEAKER) (test 4.9 meq/L 3.5-5.1 Specimen slightly fldp=322) hemolyzed CHLORIDE (BEAKER) (test 107 meq/L 98-107 afnc=347) CO2 (BEAKER) (test 19 meq/L 22-29 ojvr=771) BLOOD UREA NITROGEN 36 mg/dL 7-21 (BEAKER) (test kmtn=210) CREATININE (BEAKER) (test 1.95 mg/dL 0.57-1.25 Specimen slightly hrmw=054) hemolyzed GLUCOSE RANDOM (BEAKER) 311 mg/dL 70-105 (test xdjv=504) CALCIUM (BEAKER) (test 8.5 mg/dL 8.4-10.2 uxgq=070) EGFR (BEAKER) (test 36 mL/min/1.73 sq m ESTIMATED GFR IS NOT wjhq=0738) ACCURATE CREATININE CLEARANCE IN PREDICTING GLOMERULAR FILTRATION RATE. ESTIMATED GFR IS NOT APPLICABLE FOR DIALYSIS PATIENTS. HEMOGLOBIN [id number] 20:17:00 Test Item Value Reference Range Comments HEMOGLOBIN A1C (BEAKER) (test stqp=225) 11.9 % 4.3-6.1 TROPONIN [id number] 19:52:00 Test Item Value Reference Range Comments TROPONIN I (BEAKER) (test mcvt=474) < ng/mL 0.00-0.03 Troponin I (TnI) levels [...] acute neurological disease, and persistent tachyarrhythmia.HEPATIC FUNCTION [id number] 19:46: 00 Test Item Value Reference Range Comments TOTAL PROTEIN (BEAKER) (test 6.3 gm/dL 6.0-8.3 Specimen slightly hemolyzed wgii=909) ALBUMIN (BEAKER) (test 2.8 g/dL 3.5-5.0 Specimen slightly hemolyzed avca=4618) BILIRUBIN TOTAL (BEAKER) (test 0.4 mg/dL 0.2-1.2 Specimen slightly hemolyzed rwqw=376) BILIRUBIN DIRECT (BEAKER) (test 0.1 mg/dL 0.1-0.5 Specimen slightly hemolyzed lyln=785) ALKALINE PHOSPHATASE (BEAKER) 104 U/L 40-150 (test heun=727) AST (SGOT) (BEAKER) (test 29 U/L 5-34 Specimen slightly hemolyzed jccj=927) ALT (SGPT) (BEAKER) (test 23 U/L 6-55 Specimen slightly hemolyzed egdh=717) Specimen moderately [id number] 19:32:00 Test Item Value Reference Range Comments PARTIAL THROMBOPLASTIN TIME (BEAKER) (test 28.1 seconds 22.5-36.0 fbyu=374) PROTHROMBIN TIME/[id number] 19:31:00 Test Item Value Reference Range Comments PROTIME (BEAKER) (test wlud=519) 11.4 seconds 11.9-14.2 INR (BEAKER) (test tfew=826) 0.9 <=5.9 Effective 09/23/2018: PT Reference Range ChangeNew: 11.9-14.2 Previous: 11.7- 14.7RECOMMENDED COUMADIN/WARFARIN INR THERAPY RANGESSTANDARD DOSE: 2.0-3.0 Includes: PROPHYLAXIS for venous thrombosis, systemic embolization; TREATMENT for venous thrombosis and/or pulmonary embolus.HIGH RISK: Target INR is2.5-3.5 for patients wiht mechanical heart valves.CBC W/PLT COUNT & AUTO [id number] 19:25:00 Test Item Value Reference Range Comments WHITE BLOOD CELL COUNT (BEAKER) (test mcoh=734) 5.2 K/ L 3.5-10.5 RED BLOOD CELL COUNT (BEAKER) (test kdpz=873) 3.84 M/ L 4.63-6.08 HEMOGLOBIN (BEAKER) (test aloz=632) 12.2 GM/DL 13.7-17.5 HEMATOCRIT (BEAKER) (test qgnc=635) 34.6 % 40.1-51.0 MEAN CORPUSCULAR VOLUME (BEAKER) (test dscs=723) 90.1 fL 79.0-92.2 MEAN CORPUSCULAR HEMOGLOBIN (BEAKER) (test 31.8 pg 25.7-32.2 iatz=662) MEAN CORPUSCULAR HEMOGLOBIN CONC (BEAKER) (test 35.3 GM/DL 32.3-36.5 hsrk=861) RED CELL DISTRIBUTION WIDTH (BEAKER) (test 13.6 % 11.6-14.4 urfd=617) PLATELET COUNT (BEAKER) (test onnt=099) 140 K/CU MM 150-450 MEAN PLATELET VOLUME (BEAKER) (test nwyq=060) 11.8 fL 9.4-12.4 NUCLEATED RED BLOOD CELLS (BEAKER) (test 0 /100 WBC 0-0 ujvu=189) NEUTROPHILS RELATIVE PERCENT (BEAKER) (test 54 % rsll=622) LYMPHOCYTES RELATIVE PERCENT (BEAKER) (test 36 % ezkg=199) MONOCYTES RELATIVE PERCENT (BEAKER) (test 5 % txrr=301) EOSINOPHILS RELATIVE PERCENT (BEAKER) (test 3 % gjys=960) BASOPHILS RELATIVE PERCENT (BEAKER) (test 1 % iool=423) NEUTROPHILS ABSOLUTE COUNT (BEAKER) (test 2.82 K/ L 1.78-5.38 lqel=265) LYMPHOCYTES ABSOLUTE COUNT (BEAKER) (test 1.89 K/ L 1.32-3.57 bmna=699) MONOCYTES ABSOLUTE COUNT (BEAKER) (test 0.28 K/ L 0.30-0.82 urdx=135) EOSINOPHILS ABSOLUTE COUNT (BEAKER) (test 0.17 K/ L 0.04-0.54 zgyz=228) BASOPHILS ABSOLUTE COUNT (BEAKER) (test 0.04 K/ L 0.01-0.08 sucm=825) IMMATURE GRANULOCYTES-RELATIVE PERCENT (BEAKER) 1 % 0-1 (test pizf=7266) POCT-GLUCOSE [id number] 17:51:00 Test Item Value Reference Range Comments POC-GLUCOSE METER (BEAKER) 342 mg/dL 70-110 Notified HAYLEE BOSS/TESTED AT [facility] (test ikgg=2541) [id number] [facility] [id number]
[2019-06-08] MEDS ORDERED: KETOROLAC 30 MG/ML INJ ONE (22:32)
[2019-06-08 22:50] LABS: Absolute Lymphocytes (CBC) 1.7 K/uL (0.7-4.9); Basophils % 0.8 % (0-1.3); Hematocrit 35.5 % (39.6-49.0); MPV 11.9 fL (7.6-11.3); RBC Red Blood Cell Count 3.83 M/uL (4.33-5.43)
[2019-06-08 23:21] LABS: ALT/SGPT 20 U/L (12-78); AST/SGOT 21 U/L (15-37); Albumin 2.2 g/dL (3.4-5.0); Alkaline Phosphatase 108 U/L (45-117); BUN Blood Urea Nitrogen 35 mg/dL (7-18); Bilirubin Direct < 0.1 mg/dL (0-0.2); Bilirubin Total 0.2 mg/dL (0.2-1.0); Lipase 447 U/L (73-393); Potassium 4.9 mmol/L (3.5-5.1); Protein, Total 5.6 g/dL (6.4-8.2); Sodium Level 138 mmol/L (136-145)
[2019-06-08 23:23] LABS: Bicarbonate 13 mmol/L (21-32); Glucose Level 509 mg/dL (74-106)
[2019-06-08] MEDS ORDERED: NA CHLORIDE 0.9% 1,000 ML ONE (23:29)
[2019-06-09] MEDS ORDERED: INSULIN -REGULAR HUMAN 50 UNIT/0.5 ML ML ONE (02:40)
--- NOTE | 2019-06-09 02:42 | EDPHYS ---
Physician Documentation [facility] Name: Wero Kwong Sr Age: 53 yrs Sex: Male : 1965 Arrival Date: 06/08/2019 Time: 22:00 Bed 6 Private MD: ED Physician Milton Mims HPI: 06/09 02:07 This 53 yrs old Male presents to ER via EMS with complaints of Abdominal Pain. tw4 02:07 The patient presents with abdominal pain. Onset: The symptoms/episode began/occurred tw4 today. The symptoms do not radiate. Severity of pain: At its worst the pain was moderate in the emergency department the pain is unchanged. Historical: - Allergies: 06/08 22:18 Codeine; jd3 22:18 Hydrocodone-Acetaminophen; jd3 22:18 Morphine; jd3 - Home Meds: 22:18 acetazolamide 500 mg Oral cpER 1 cap 2 times per day [Active]; citalopram 20 mg tab 1 jd3 tab once daily [Active]; clopidogrel 75 mg Oral tab 1 tab once daily [Active]; furosemide 40 mg Oral tab 1 tab 2 times per day [Active]; Humulin 70/30 100 unit/mL (70-30) Sub-Q susp [Active]; levetiracetam 500 mg Oral tab 1 tab 2 times per day [Active]; lisinopril 10 mg Oral tab 1 tab once daily [Active]; gabapentin 300 mg Oral cap 3 caps twice a day [Active]; simvastatin 40 mg Oral tab 1 tab once daily [Active]; spironolactone 25 mg Oral tab nightly [Active]; travatan eye drops [Active]; - PMHx: 22:18 kidney failure; Seizures; Hypertension; Myocardial infarction; Diabetes - IDDM; CVA; jd3 High Cholesterol; Cirrhosis; CAD; neuropathy; CHF; - PSHx: 22:18 Heart stents; Cholecystectomy; jd3 - Immunization history:: Adult Immunizations up to date. - Coronavirus screen:: The patient has NOT traveled to [place] in the past 14 days. The patient has NOT had contact with known/suspected case of Coronavirus? Proceed with normal triage procedures. - Social history:: Smoking status: Patient reports the use of cigarette tobacco products, denies chronic smoking, but will smoke occasionally. - Ebola Screening: : Patient negative for fever greater than or equal to 101.5 degrees Fahrenheit, and additional compatible Ebola Virus Disease symptoms. ROS: 06/09 02:07 Constitutional: Negative for fever, chills, and weight loss, Eyes: Negative for injury, tw4 pain, redness, and discharge, Cardiovascular: Negative for chest pain, palpitations, and edema, Respiratory: Negative for shortness of breath, cough, wheezing, and pleuritic chest pain, Back: Negative for injury and pain, Skin: Negative for injury, rash, and discoloration. Abdomen/GI: Positive for abdominal pain, Negative for nausea and vomiting, nausea, vomiting, and diarrhea, nausea, vomiting, diarrhea, constipation, abdominal cramps, abdominal distension, anorexia, dysphagia, hematemesis, black/tarry stool, rectal pain, rectal bleeding. Exam: 02:07 Constitutional: This is a well developed, well nourished patient who is awake, alert, tw4 and in no acute distress. Head/Face: Normocephalic, atraumatic. Eyes: Pupils equal round and reactive to light, extra-ocular motions intact. Lids and lashes normal. Conjunctiva and sclera are non-icteric and not injected. Cornea within normal limits. Periorbital areas with no swelling, redness, or edema. Chest/axilla: Normal chest wall appearance and motion. Nontender with no deformity. No lesions are appreciated. Cardiovascular: Regular rate and rhythm with a normal S1 and S2. No gallops, murmurs, or rubs. Normal PMI, no JVD. No pulse deficits. Respiratory: Lungs have equal breath sounds bilaterally, clear to auscultation and percussion. No rales, rhonchi or wheezes noted. No increased work of breathing, no retractions or nasal flaring. Back: No spinal tenderness. No costovertebral tenderness. Full range of motion. Skin: Warm, dry with normal turgor. Normal color with no rashes, no lesions, and no evidence of cellulitis. MS/ Extremity: Pulses equal, no cyanosis. Neurovascular intact. Full, normal range of motion. Vital Signs: 06/08 22:18 BP 118 / 70; Pulse 108; Resp 18 S; Temp 98.5(O); Pulse Ox 99% on R/A; Weight 127.01 kg jd3 (R); Height 5 ft. 7 in. (170.18 cm) (R); Pain 8/10; 22:18 BP 120 / 76; Pulse 101; Resp 15 S; Pulse Ox 100% on R/A; jd3 06/09 00:39 Temp 98.6(O); ds4 01:45 BP 100 / 59; Pulse 93; Resp 17 S; Pulse Ox 100% on R/A; Pain 0/10; jd3 02:45 BP 110 / 67; Pulse 97; Resp 18 S; Pulse Ox 97% on R/A; Pain 0/10; jd3 06/08 22:18 Body Mass Index 43.86 (127.01 kg, 170.18 cm) [facility] MDM: 06/08 22:06 Patient medically screened. tw4 06/09 02:07 Data reviewed: vital signs. Data interpreted: Pulse oximetry:. Counseling: I had a tw4 detailed discussion with the patient and/or guardian regarding: the historical points, exam findings, and any diagnostic results supporting the discharge/admit diagnosis. Special discussion: I discussed with the patient/guardian in detail that at this point there is no indication for admission to the hospital. It is understood, however, that if the symptoms persist or worsen the patient needs to return immediately for re-evaluation. 06/08 22:07 Order name: Basic Metabolic Panel tw4 06/08 22:07 Order name: CBC with Diff tw4 06/08 22:07 Order name: Creatinine for Radiology tw4 06/08 22:07 Order name: Hepatic Function tw4 06/08 22:07 Order name: Lipase tw4 06/08 22:55 Order name: CBC with Automated Diff; Complete Time: 23:27 EDMS 06/08 23:27 Interpretation: Normal except: WBC 7.3; HGB 11.8; HCT 35.5; RBC 3.83; MPV 11.9; RDW tw4 15.6; PLT 145. 06/08 23:16 Order name: Creatinine (Radiology Only); Complete Time: 23:27 EDMS 06/08 23:27 Interpretation: Normal except: CRE 3.00; GFR 22. tw4 06/08 23:24 Order name: Basic Metabolic Panel; Complete Time: 23:27 EDMS 06/08 23:28 Interpretation: Normal except: GLUC 509; CRE 2.97; BUN 35; CO2 13; CL 115; GFR 22. tw4 06/08 23:24 Order name: Liver (Hepatic) Function; Complete Time: 23:27 EDMS 06/08 23:28 Interpretation: Normal except: TP 5.6; ALB 2.2; A/G 0.6. tw4 06/08 23:24 Order name: Lipase; Complete Time: 23:27 EDMS 06/08 23:28 Interpretation: Abnormal: LIP 447. tw4 06/08 23:27 Order name: Acetone, Serum tw4 06/08 23:51 Order name: Acetone Level; Complete Time: 01:40 EDMS 06/08 22:07 Order name: IV Saline Lock; Complete Time: 22:27 tw4 06/08 22:07 Order name: Labs collected and sent; Complete Time: 22:27 tw4 Administered Medications: 06/08 22:43 Drug: TORadol 30 mg Route: IVP; Site: right antecubital; jd3 23:40 Follow up: Response: No adverse reaction jd3 23:35 Drug: NS 0.9% 1000 ml Route: IV; Rate: 1 bolus; Site: right antecubital; jd3 06/09 00:30 Follow up: Response: No adverse reaction; IV Status: Completed infusion; IV Intake: jd3 1000ml 06/08 23:49 Drug: Insulin Regular Human 10 units {Co-Signature: wendie (Suad Melendez RN).} Route: IVP; jd3 Site: right antecubital; 06/09 00:45 Follow up: Response: No adverse reaction jd3 02:41 Drug: Insulin Regular Human 6 units {Co-Signature: jose (Kyra Felipe RN).} Route: jd3 Sub-Q; Site: abdomen; 03:00 Follow up: Response: Medication administered at discharge. jd3 Disposition: 06/09/19 02:41 Discharged to Home. Impression: Hyperglycemia, unspecified, Chroninc abdominal pain. - Condition is Stable. - Discharge Instructions: Hyperglycemia, Gestational Diabetes Mellitus, Diagnosis, Blood Glucose Monitoring, Adult. - Prescriptions for Bentyl 20 mg Oral Tablet - take 1 tablet by ORAL route every 6 hours As needed; 20 tablet. Protonix 40 mg Oral Tablet - take 1 tablet by ORAL route once daily; 30 tablet. - Medication Reconciliation Form, Thank You Letter, Antibiotic Education, Prescription Opioid Use form. - Follow up: Private Physician; When: Upon discharge from the Emergency Department; Reason: If symptoms return, Recheck today's complaints, Continuance of care, Re-evaluation by your physician. - Problem is new. - Symptoms have improved. Signatures: Dispatcher [employer] EDJd Sprague RN RN jd3 Milton Mims MD MD tw4 Suad garcia Corrections: (The following items were deleted from the chart) 03:03 02:41 06/09/2019 02:41 Discharged to Home. Impression: Hyperglycemia, unspecified; jd3 Chroninc abdominal pain. Condition is Stable. Forms are Medication Reconciliation Form, Thank You Letter, Antibiotic Education, Prescription Opioid Use. Follow up: Private Physician; When: Upon discharge from the Emergency Department; Reason: If symptoms return, Recheck today's complaints, Continuance of care, Re-evaluation by your physician. Problem is new. Symptoms have improved. tw4
--- NOTE | 2019-06-09 02:42 | ER ---
Nurse's Notes [facility] Name: Wero Kwong Sr Age: 53 yrs Sex: Male : 1965 Arrival Date: 06/08/2019 Time: 22:00 Bed 6 Private MD: Diagnosis: Hyperglycemia, unspecified;Chroninc abdominal pain Presentation: 06/08 22:13 Presenting complaint: EMS states: "the pt was reporting a high fever at home and jd3 abdominal pain. he reported he has been having GI problems for a while and had a scope done yesterday. he has also been reporting feeling very weak.". Transition of care: patient was not received from another setting of care. Onset of symptoms was June 08, 2019. Risk Assessment: Do you want to hurt yourself or someone else? Patient reports no desire to harm self or others. Initial Sepsis Screen: Does the patient meet any 2 criteria? No. Patient's initial sepsis screen is negative. Does the patient have a suspected source of infection? No. Patient's initial sepsis screen is negative. Care prior to arrival: None. 22:13 Method Of Arrival: EMS: [facility] jd3 22:13 Acuity: [facility] 3 jd3 Historical: - Allergies: 22:18 Codeine; jd3 22:18 Hydrocodone-Acetaminophen; jd3 22:18 Morphine; jd3 - Home Meds: 22:18 acetazolamide 500 mg Oral cpER 1 cap 2 times per day [Active]; citalopram 20 mg tab 1 jd3 tab once daily [Active]; clopidogrel 75 mg Oral tab 1 tab once daily [Active]; furosemide 40 mg Oral tab 1 tab 2 times per day [Active]; Humulin 70/30 100 unit/mL (70-30) Sub-Q susp [Active]; levetiracetam 500 mg Oral tab 1 tab 2 times per day [Active]; lisinopril 10 mg Oral tab 1 tab once daily [Active]; gabapentin 300 mg Oral cap 3 caps twice a day [Active]; simvastatin 40 mg Oral tab 1 tab once daily [Active]; spironolactone 25 mg Oral tab nightly [Active]; travatan eye drops [Active]; - PMHx: 22:18 kidney failure; Seizures; Hypertension; Myocardial infarction; Diabetes - IDDM; CVA; jd3 High Cholesterol; Cirrhosis; CAD; neuropathy; CHF; - PSHx: 22:18 Heart stents; Cholecystectomy; jd3 - Immunization history:: Adult Immunizations up to date. - Coronavirus screen:: The patient has NOT traveled to [place] in the past 14 days. The patient has NOT had contact with known/suspected case of Coronavirus? Proceed with normal triage procedures. - Social history:: Smoking status: Patient reports the use of cigarette tobacco products, denies chronic smoking, but will smoke occasionally. - Ebola Screening: : Patient negative for fever greater than or equal to 101.5 degrees Fahrenheit, and additional compatible Ebola Virus Disease symptoms. Screenin:46 Abuse screen: Denies threats or abuse. Nutritional screening: No deficits noted. jd3 Tuberculosis screening: No symptoms or risk factors identified. Fall Risk IV access (20 points). Ambulatory Aid- None/Bed Rest/Nurse Assist (0 pts). Gait- Weak (10 pts.). Mental Status- Oriented to own ability (0 pts). Total Moraels Fall Scale indicates Low Risk Score (25-44 pts). Fall prevention measures have been instituted. Side Rails Up X 2 Placed close to Nursing Station Frequent Obs/Assesments occuring Family Present and informed to notify staff if they need to leave bedside. Assessment: 22:05 General: Appears in no apparent distress. uncomfortable, Behavior is calm, cooperative, jd3 appropriate for age, drowsy. Pain: Complains of pain in abdomen Quality of pain is described as sharp. Neuro: Level of Consciousness is awake, alert, obeys commands, Oriented to person, place, time, situation. Cardiovascular: Denies chest pain, Capillary refill < 3 seconds Patient's skin is warm and dry. Respiratory: Airway is patent Respiratory effort is even, unlabored, Respiratory pattern is regular, symmetrical, Denies cough, shortness of breath. GI: Abdomen is round Abd is soft and non tender X 4 quads. Reports lower abdominal pain, upper abdominal pain, diarrhea, Patient currently denies nausea, vomiting. : No signs and/or symptoms were reported regarding the genitourinary system. EENT: No signs and/or symptoms were reported regarding the EENT system. Derm: Skin is intact, Skin is dry, Skin is normal, Skin temperature is warm. Musculoskeletal: Circulation, motion, and sensation intact. Range of motion: intact in all extremities. 23:36 Reassessment: Patient appears in no apparent distress at this time. No changes from [facility] previously documented assessment. Patient and/or family updated on plan of care and expected duration. Pain level reassessed. Patient is alert, oriented x 3, equal unlabored respirations, skin warm/dry/pink. 06/09 00:30 Reassessment: Patient appears in no apparent distress at this time. No changes from [facility] previously documented assessment. Patient and/or family updated on plan of care and expected duration. Pain level reassessed. Patient is alert, oriented x 3, equal unlabored respirations, skin warm/dry/pink. Patient states feeling better. 01:42 Reassessment: Patient appears in no apparent distress at this time. Patient and/or [facility] family updated on plan of care and expected duration. Pain level reassessed. Patient is alert, oriented x 3, equal unlabored respirations, skin warm/dry/pink. reports needing to use restroom. assisted pt to restroom using wheelchair. pt pulled out IV, provider notified Patient states feeling better. 02:46 Reassessment: Patient appears in no apparent distress at this time. Patient and/or [facility] family updated on plan of care and expected duration. Pain level reassessed. Patient is alert, oriented x 3, equal unlabored respirations, skin warm/dry/pink. Vital Signs: 06/08 22:18 BP 118 / 70; Pulse 108; Resp 18 S; Temp 98.5(O); Pulse Ox 99% on R/A; Weight 127.01 kg [facility] (R); Height 5 ft. 7 in. (170.18 cm) (R); Pain 8/10; 22:18 BP 120 / 76; Pulse 101; Resp 15 S; Pulse Ox 100% on R/A; d3 06/09 00:39 Temp 98.6(O); ds4 01:45 BP 100 / 59; Pulse 93; Resp 17 S; Pulse Ox 100% on R/A; Pain 0/10; jd3 02:45 BP 110 / 67; Pulse 97; Resp 18 S; Pulse Ox 97% on R/A; Pain 0/10; d3 06/08 22:18 Body Mass Index 43.86 (127.01 kg, 170.18 cm) [facility] ED Course: 06/08 22:00 Patient arrived in ED. cf2 22:05 Milton Mims MD is Attending Physician. tw4 22:16 Triage completed. jd3 22:19 Arm band placed on. jd3 22:43 Jd Reddy RN is Primary Nurse. jd3 22:43 Maintain EMS IV. Dressing intact. Good blood return noted. Site clean \\T\\ dry. Gauge \\T\\ venkat 3 site: 20 G right AC. 22:47 Patient has correct armband on for positive identification. Placed in gown. Bed in low jd3 position. Call light in reach. Side rails up X2. Adult w/ patient. 23:22 Notified ED physician of a critical lab result(s). bicarb of 13, glucose of 509. fc 06/09 01:44 IV was discontinued by the patient. IV discontinued, intact, bleeding controlled, No jd3 redness/swelling at site. Pressure dressing applied. 02:47 No provider procedures requiring assistance completed. jd3 Administered Medications: 06/08 22:43 Drug: TORadol 30 mg Route: IVP; Site: right antecubital; jd3 23:40 Follow up: Response: No adverse reaction jd3 23:35 Drug: NS 0.9% 1000 ml Route: IV; Rate: 1 bolus; Site: right antecubital; jd3 06/09 00:30 Follow up: Response: No adverse reaction; IV Status: Completed infusion; IV Intake: jd3 1000ml 06/08 23:49 Drug: Insulin Regular Human 10 units {Co-Signature: wendie (Suad Melendez RN).} Route: IVP; jd3 Site: right antecubital; 06/09 00:45 Follow up: Response: No adverse reaction jd3 02:41 Drug: Insulin Regular Human 6 units {Co-Signature: jose (Kyra Felipe RN).} Route: jd3 Sub-Q; Site: abdomen; 03:00 Follow up: Response: Medication administered at discharge. jd3 Intake: 00:30 IV: 1000ml; Total: 1000ml. jd3 Outcome: 02:41 Discharge ordered by . tw4 03:01 Discharged to home via wheelchair, with family. jd3 03:01 Condition: stable 03:01 Discharge instructions given to patient, family, Instructed on discharge instructions, follow up and referral plans. medication usage, Demonstrated understanding of instructions, follow-up care, medications, Prescriptions given X 2. 03:03 Patient left the ED. jd3 Signatures: Kyra Felipe RN RN Misbah Gonzales ds4 Jd Reddy RN RN jd3 Milton Mims MD MD tw4 Clementine Kaur cf2 Suad garcia Corrections: (The following items were deleted from the chart) 06/08 23:36 22:18 Pulse 108bpm; Resp 18bpm; Spontaneous; Pulse Ox 99% RA; Temp 98.5F Oral; 127.01 jd3 kg Reported; Height 5 ft. 7 in. Reported; BMI: 43.8; Pain 8/10; jd3 23:36 22:05 General: Appears in no apparent distress. uncomfortable, Behavior is calm, jd3 cooperative, appropriate for age, jd3 06/09 03:03 02:45 BP 110 / 67; Pulse 95bpm; Resp 18bpm; Spontaneous; Pulse Ox 100% RA; Pain 0/10; jd3 jd3
[2019-06-10 15:59] VITALS: TEMP 98.6
[2019-06-10 16:01] VITALS: BP 110/67; O2SAT 97
== END 2019-06-09 03:03 | disposition home or self-care (01) ==
LOC: ER 21:58
DX: E11.65 Type 2 diabetes mellitus with hyperglycemia (principal); I10 Essential (primary) hypertension; G40.909 Epilepsy, unspecified, not intractable, without status epilepticus; Z79.4 Long term (current) use of insulin; Z88.5 Allergy status to narcotic agent
CPT/HCPCS: 96361; 85025; 80048; 36415; 82010; 80076; 83690; 96375; 96372; 96374; 99283; J7030

== ENCOUNTER 2019-08-01 19:56 | Emergency (ER) | payer BC, OTHER ==
--- OUTSIDE RECORDS SUMMARY | 2019-08-01 19:59 | XMS REPORT ---
:1965 Author Organization [facility] Address [address] [place] [address] Care Team Providers Name Role Phone BASHIR [...] (BEAKER) (test 119 mg/dL 70-110 TESTED AT [facility] [address] [place] [address] bhnl=4820) [facility] [address] BASIC METABOLIC [id number] 06:16:00 Test Item Value Reference Range Comments SODIUM (BEAKER) (test 139 meq/L 136-145 uqky=669) POTASSIUM (BEAKER) (test 4.5 meq/L 3.5-5.1 hptg=069) CHLORIDE (BEAKER) (test 109 meq/L 98-107 fxlx=806) CO2 (BEAKER) (test 23 meq/L 22-29 nxwm=158) BLOOD UREA NITROGEN 30 mg/dL 7-21 (BEAKER) (test agvy=564) CREATININE (BEAKER) (test 1.87 mg/dL 0.57-1.25 rsbp=981) GLUCOSE RANDOM (BEAKER) 219 mg/dL 70-105 (test undg=305) CALCIUM (BEAKER) (test 8.9 mg/dL 8.4-10.2 zepc=924) EGFR (BEAKER) (test 38 mL/min/1.73 sq m ESTIMATED GFR IS NOT wsey=6726) ACCURATE CREATININE CLEARANCE IN PREDICTING GLOMERULAR FILTRATION RATE. ESTIMATED GFR IS NOT APPLICABLE FOR DIALYSIS PATIENTS. CBC W/PLT COUNT & AUTO [id number] 05:42:00 Test Item Value Reference Range Comments WHITE BLOOD CELL COUNT (BEAKER) (test hcyp=744) 4.1 K/ L 3.5-10.5 RED BLOOD CELL COUNT (BEAKER) (test fiav=460) 3.72 M/ L 4.63-6.08 HEMOGLOBIN (BEAKER) (test ekqm=549) 11.6 GM/DL 13.7-17.5 HEMATOCRIT (BEAKER) (test mmzu=248) 33.6 % 40.1-51.0 MEAN CORPUSCULAR VOLUME (BEAKER) (test hjzj=349) 90.3 fL 79.0-92.2 MEAN CORPUSCULAR HEMOGLOBIN (BEAKER) (test 31.2 pg 25.7-32.2 jsvh=701) MEAN CORPUSCULAR HEMOGLOBIN CONC (BEAKER) (test 34.5 GM/DL 32.3-36.5 wsul=733) RED CELL DISTRIBUTION WIDTH (BEAKER) (test 13.7 % 11.6-14.4 eslw=260) PLATELET COUNT (BEAKER) (test zfdd=976) 170 K/CU MM 150-450 MEAN PLATELET VOLUME (BEAKER) (test jzyl=510) 11.8 fL 9.4-12.4 NUCLEATED RED BLOOD CELLS (BEAKER) (test 0 /100 WBC 0-0 xmbz=676) NEUTROPHILS RELATIVE PERCENT (BEAKER) (test 53 % ehrs=008) LYMPHOCYTES RELATIVE PERCENT (BEAKER) (test 32 % nkju=733) MONOCYTES RELATIVE PERCENT (BEAKER) (test 7 % sbmz=903) EOSINOPHILS RELATIVE PERCENT (BEAKER) (test 6 % aoqp=010) BASOPHILS RELATIVE PERCENT (BEAKER) (test 1 % aaem=605) NEUTROPHILS ABSOLUTE COUNT (BEAKER) (test 2.17 K/ L 1.78-5.38 zvre=452) LYMPHOCYTES ABSOLUTE COUNT (BEAKER) (test 1.31 K/ L 1.32-3.57 gctr=680) MONOCYTES ABSOLUTE COUNT (BEAKER) (test 0.29 K/ L 0.30-0.82 ynhh=287) EOSINOPHILS ABSOLUTE COUNT (BEAKER) (test 0.26 K/ L 0.04-0.54 itqs=970) BASOPHILS ABSOLUTE COUNT (BEAKER) (test 0.03 K/ L 0.01-0.08 ggxf=045) IMMATURE GRANULOCYTES-RELATIVE PERCENT (BEAKER) 1 % 0-1 (test knqu=9407) POCT-GLUCOSE [id number] 20:34:00 Test Item Value Reference Range Comments POC-GLUCOSE METER (BEAKER) 205 mg/dL 70-110 TESTED AT [address] (test fysd=5058) [facility] [address] [address], CHEST, WITHOUT [id number] 18:24:00FINAL REPORT TECHNIQUE: CT scan of the [...] [place] Verified Date/Time: 01/10/2019 18:24:57 Reading Location: [facility] C013Y CT Body Reading Room POCT-GLUCOSE [id number] 17:31 :00 Test Item Value Reference Range Comments POC-GLUCOSE METER (BEAKER) 183 mg/dL 70-110 TESTED AT [address] (test kvol=9399) [facility] [address] CT, BRAIN, WITHOUT [id number] 14:47:00FINAL REPORT CT, BRAIN, WITHOUT CONTRAST INDICATION: [...] Lubna Lr MDReport Verified Date/Time: 01/10/2019 14:47:25 -[id number] 11:36:00 Test Item Value Reference Range Comments D-DIMER QUANTITATIVE (BEAKER) (test kwqc=830) 2.14 MG/L FEU <0.50 Intended Use: The [...] within 95-100% range.RAD, CHEST, 1 VIEW, NON [id number] 08:17:00Reason for exam:->chest painShould this be performed [...] MDReport Verified Date/Time: 01/10/2019 08:17:19 Reading Location: [facility] B1 C013X Ortho Consult Reading Room TROPONIN [id number] 07:02:00 Test Item Value Reference Range Comments TROPONIN I (BEAKER) (test zpej=940) 0.02 ng/mL 0.00-0.03 Troponin I (TnI) levels [...] NATRIURETIC PEPTIDE (BEAKER) (test 130 pg/mL 0-100 hhbs=739) BASIC METABOLIC [id number] 06:51:00 Test Item Value Reference Range Comments SODIUM (BEAKER) (test 137 meq/L 136-145 rgls=175) POTASSIUM (BEAKER) (test 4.3 meq/L 3.5-5.1 prxg=976) CHLORIDE (BEAKER) (test 108 meq/L 98-107 yyzy=792) CO2 (BEAKER) (test 21 meq/L 22-29 onyg=736) BLOOD UREA NITROGEN 34 mg/dL 7-21 (BEAKER) (test rvnb=610) CREATININE (BEAKER) (test 2.00 mg/dL 0.57-1.25 qnuz=881) GLUCOSE RANDOM (BEAKER) 169 mg/dL 70-105 (test szia=263) CALCIUM (BEAKER) (test 8.7 mg/dL 8.4-10.2 dvim=765) EGFR (BEAKER) (test 35 mL/min/1.73 sq m ESTIMATED GFR IS NOT smzj=5564) ACCURATE CREATININE CLEARANCE IN PREDICTING GLOMERULAR FILTRATION RATE. ESTIMATED GFR IS NOT APPLICABLE FOR DIALYSIS PATIENTS. CBC W/PLT COUNT & AUTO [id number] 06:27:00 Test Item Value Reference Range Comments WHITE BLOOD CELL COUNT (BEAKER) (test naiy=628) 5.0 K/ L 3.5-10.5 RED BLOOD CELL COUNT (BEAKER) (test dzgi=975) 3.44 M/ L 4.63-6.08 HEMOGLOBIN (BEAKER) (test pnjw=554) 10.8 GM/DL 13.7-17.5 HEMATOCRIT (BEAKER) (test dfit=461) 31.5 % 40.1-51.0 MEAN CORPUSCULAR VOLUME (BEAKER) (test erbn=090) 91.6 fL 79.0-92.2 MEAN CORPUSCULAR HEMOGLOBIN (BEAKER) (test 31.4 pg 25.7-32.2 ptnn=247) MEAN CORPUSCULAR HEMOGLOBIN CONC (BEAKER) (test 34.3 GM/DL 32.3-36.5 hpoq=669) RED CELL DISTRIBUTION WIDTH (BEAKER) (test 13.7 % 11.6-14.4 vjfw=698) PLATELET COUNT (BEAKER) (test cfid=789) 146 K/CU MM 150-450 MEAN PLATELET VOLUME (BEAKER) (test chim=709) 12.1 fL 9.4-12.4 NUCLEATED RED BLOOD CELLS (BEAKER) (test 0 /100 WBC 0-0 wryi=592) NEUTROPHILS RELATIVE PERCENT (BEAKER) (test 48 % cqvj=233) LYMPHOCYTES RELATIVE PERCENT (BEAKER) (test 37 % igkn=918) MONOCYTES RELATIVE PERCENT (BEAKER) (test 8 % rwfc=493) EOSINOPHILS RELATIVE PERCENT (BEAKER) (test 6 % hbto=238) BASOPHILS RELATIVE PERCENT (BEAKER) (test 1 % ctzs=541) NEUTROPHILS ABSOLUTE COUNT (BEAKER) (test 2.42 K/ L 1.78-5.38 nbau=664) LYMPHOCYTES ABSOLUTE COUNT (BEAKER) (test 1.83 K/ L 1.32-3.57 fxhp=714) MONOCYTES ABSOLUTE COUNT (BEAKER) (test 0.40 K/ L 0.30-0.82 sfrd=838) EOSINOPHILS ABSOLUTE COUNT (BEAKER) (test 0.30 K/ L 0.04-0.54 zhgi=707) BASOPHILS ABSOLUTE COUNT (BEAKER) (test 0.04 K/ L 0.01-0.08 ehwy=787) IMMATURE GRANULOCYTES-RELATIVE PERCENT (BEAKER) 0 % 0-1 (test zjsm=3631) TROPONIN [id number] 23:52:00 Test Item Value Reference Range Comments TROPONIN I (BEAKER) (test fxzb=611) 0.03 ng/mL 0.00-0.03 Troponin I (TnI) levels [...] acidosis, acute neurological disease, and persistent tachyarrhythmia.POCT-GLUCOSE [id number] 22:03:00 Test Item Value Reference Range Comments POC-GLUCOSE METER (BEAKER) 315 mg/dL 70-110 TESTED AT [address] (test unbk=3325) [facility] [address] POCT-GLUCOSE [id number] 20:02:00 Test Item Value Reference Range Comments POC-GLUCOSE METER (BEAKER) 250 mg/dL 70-110 TESTED AT [address] (test ksno=7359) [place] [address] TROPONIN [id number] 19:05:00 Test Item Value Reference Range Comments TROPONIN I (BEAKER) (test ekpy=114) 0.04 ng/mL 0.00-0.03 Troponin I (TnI) levels [...] acidosis, acute neurological disease, and persistent tachyarrhythmia.POCT-GLUCOSE [id number] 17:40:00 Test Item Value Reference Range Comments POC-GLUCOSE METER (BEAKER) 246 mg/dL 70-110 TESTED AT [facility] [address] [facility] (test eqwn=2743) [facility] [address] POCT-GLUCOSE [id number] 08:11:00 Test Item Value Reference Range Comments POC-GLUCOSE METER (BEAKER) 243 mg/dL 70-110 TESTED AT [facility] [address] [facility] (test wytk=6416) [facility] [address] BASIC METABOLIC [id number] 05:04:00 Test Item Value Reference Range Comments SODIUM (BEAKER) (test 138 meq/L 136-145 zlic=782) POTASSIUM (BEAKER) (test 4.5 meq/L 3.5-5.1 wdnj=679) CHLORIDE (BEAKER) (test 110 meq/L 98-107 qctj=328) CO2 (BEAKER) (test 22 meq/L 22-29 koov=671) BLOOD UREA NITROGEN 34 mg/dL 7-21 (BEAKER) (test gsle=167) CREATININE (BEAKER) (test 2.01 mg/dL 0.57-1.25 dace=472) GLUCOSE RANDOM (BEAKER) 243 mg/dL 70-105 (test vjui=678) CALCIUM (BEAKER) (test 8.5 mg/dL 8.4-10.2 lplo=346) EGFR (BEAKER) (test 35 mL/min/1.73 sq m ESTIMATED GFR IS NOT jijm=4460) ACCURATE CREATININE CLEARANCE IN PREDICTING GLOMERULAR FILTRATION RATE. ESTIMATED GFR IS NOT APPLICABLE FOR DIALYSIS PATIENTS. [id number] 04:56:00 Test Item Value Reference Range Comments PARTIAL THROMBOPLASTIN TIME (BEAKER) (test 35.0 seconds 22.5-36.0 rkbn=170) CBC W/PLT COUNT & AUTO [id number] 04:48:00 Test Item Value Reference Range Comments WHITE BLOOD CELL COUNT (BEAKER) (test ycsg=628) 4.9 K/ L 3.5-10.5 RED BLOOD CELL COUNT (BEAKER) (test jznk=043) 3.36 M/ L 4.63-6.08 HEMOGLOBIN (BEAKER) (test fqkm=589) 10.5 GM/DL 13.7-17.5 HEMATOCRIT (BEAKER) (test smgt=193) 30.5 % 40.1-51.0 MEAN CORPUSCULAR VOLUME (BEAKER) (test qfth=825) 90.8 fL 79.0-92.2 MEAN CORPUSCULAR HEMOGLOBIN (BEAKER) (test 31.3 pg 25.7-32.2 owxw=934) MEAN CORPUSCULAR HEMOGLOBIN CONC (BEAKER) (test 34.4 GM/DL 32.3-36.5 agjm=790) RED CELL DISTRIBUTION WIDTH (BEAKER) (test 13.5 % 11.6-14.4 tlbo=904) PLATELET COUNT (BEAKER) (test tmdj=151) 116 K/CU MM 150-450 MEAN PLATELET VOLUME (BEAKER) (test yghc=529) 11.9 fL 9.4-12.4 NUCLEATED RED BLOOD CELLS (BEAKER) (test 0 /100 WBC 0-0 hycl=819) NEUTROPHILS RELATIVE PERCENT (BEAKER) (test 52 % vwzw=934) LYMPHOCYTES RELATIVE PERCENT (BEAKER) (test 36 % ylzh=546) MONOCYTES RELATIVE PERCENT (BEAKER) (test 8 % hsqr=729) EOSINOPHILS RELATIVE PERCENT (BEAKER) (test 4 % iosv=876) BASOPHILS RELATIVE PERCENT (BEAKER) (test 0 % tqpk=927) NEUTROPHILS ABSOLUTE COUNT (BEAKER) (test 2.51 K/ L 1.78-5.38 kczk=290) LYMPHOCYTES ABSOLUTE COUNT (BEAKER) (test 1.74 K/ L 1.32-3.57 umyn=408) MONOCYTES ABSOLUTE COUNT (BEAKER) (test 0.38 K/ L 0.30-0.82 nqfw=274) EOSINOPHILS ABSOLUTE COUNT (BEAKER) (test 0.18 K/ L 0.04-0.54 qbxc=153) BASOPHILS ABSOLUTE COUNT (BEAKER) (test 0.02 K/ L 0.01-0.08 dczj=434) IMMATURE GRANULOCYTES-RELATIVE PERCENT (BEAKER) 1 % 0-1 (test ytbq=3219) POCT-GLUCOSE [id number] 22:08:00 Test Item Value Reference Range Comments POC-GLUCOSE METER (BEAKER) 364 mg/dL 70-110 Notified HAYLEE BOSS/TESTED AT [facility] (test pixx=7916) [address] [facility] [address] POCT-GLUCOSE [id number] 17:05:00 Test Item Value Reference Range Comments POC-GLUCOSE METER (BEAKER) 389 mg/dL 70-110 Notified HAYLEE BOSS/TESTED AT [facility] (test ujjv=8304) [address] [facility] [address] BASIC METABOLIC [id number] 16:28:00 Test Item Value Reference Range Comments SODIUM (BEAKER) (test 136 meq/L 136-145 kroz=811) POTASSIUM (BEAKER) (test 4.7 meq/L 3.5-5.1 xqaw=866) CHLORIDE (BEAKER) (test 107 meq/L 98-107 gznk=284) CO2 (BEAKER) (test 23 meq/L 22-29 ytpl=238) BLOOD UREA NITROGEN 35 mg/dL 7-21 (BEAKER) (test klah=147) CREATININE (BEAKER) (test 2.22 mg/dL 0.57-1.25 jnsa=559) GLUCOSE RANDOM (BEAKER) 358 mg/dL 70-105 (test leoh=400) CALCIUM (BEAKER) (test 8.7 mg/dL 8.4-10.2 jzzw=947) EGFR (BEAKER) (test 31 mL/min/1.73 sq m ESTIMATED GFR IS NOT lciz=7454) ACCURATE CREATININE CLEARANCE IN PREDICTING GLOMERULAR FILTRATION RATE. ESTIMATED GFR IS NOT APPLICABLE FOR DIALYSIS PATIENTS. [id number] 16:26:00 Test Item Value Reference Range Comments PROTIME (BEAKER) (test ecgp=363) 13.4 seconds 11.9-14.2 INR (BEAKER) (test tezp=682) 1.1 <=5.9 PARTIAL THROMBOPLASTIN TIME (BEAKER) (test 32.0 seconds 22.5-36.0 jgtl=880) Effective 09/23/2018: PT Reference Range ChangeNew: 11.9-14.2 Previous: 11.7- 14.7RECOMMENDED COUMADIN/WARFARIN INR THERAPY RANGESSTANDARD DOSE: 2.0-3.0 Includes: PROPHYLAXIS for venous thrombosis, systemic embolization; TREATMENT for venous thrombosis and/or pulmonary embolus.HIGH RISK: Target INR is2.5-3.5 for patients wiht mechanical heart valves.[id number] 16:26:00 Test Item Value Reference Range Comments PARTIAL THROMBOPLASTIN TIME (BEAKER) (test 32.0 seconds 22.5-36.0 qjmw=026) POCT-GLUCOSE [id number] 12:06:00 Test Item Value Reference Range Comments POC-GLUCOSE METER (BEAKER) 321 mg/dL 70-110 Notified HAYLEE BOSS/TESTED AT [facility] (test zafm=9514) [address] [facility] [address] POCT-GLUCOSE [id number] 08:29:00 Test Item Value Reference Range Comments POC-GLUCOSE METER (BEAKER) 263 mg/dL 70-110 TESTED AT [place] [address] [facility] (test zmli=5646) [facility] [address] [id number] 04:54:00 Test Item Value Reference Range Comments PARTIAL THROMBOPLASTIN TIME (BEAKER) (test 31.0 seconds 22.5-36.0 jpwx=101) CBC W/PLT COUNT & AUTO [id number] 04:43:00 Test Item Value Reference Range Comments WHITE BLOOD CELL COUNT (BEAKER) (test zdxd=139) 6.6 K/ L 3.5-10.5 RED BLOOD CELL COUNT (BEAKER) (test tfls=327) 3.45 M/ L 4.63-6.08 HEMOGLOBIN (BEAKER) (test ypvf=235) 10.9 GM/DL 13.7-17.5 HEMATOCRIT (BEAKER) (test qcyi=857) 30.8 % 40.1-51.0 MEAN CORPUSCULAR VOLUME (BEAKER) (test jqov=199) 89.3 fL 79.0-92.2 MEAN CORPUSCULAR HEMOGLOBIN (BEAKER) (test 31.6 pg 25.7-32.2 nwmv=799) MEAN CORPUSCULAR HEMOGLOBIN CONC (BEAKER) (test 35.4 GM/DL 32.3-36.5 wnci=524) RED CELL DISTRIBUTION WIDTH (BEAKER) (test 13.5 % 11.6-14.4 oaol=582) PLATELET COUNT (BEAKER) (test auvt=629) 138 K/CU MM 150-450 MEAN PLATELET VOLUME (BEAKER) (test zymc=822) 12.3 fL 9.4-12.4 NUCLEATED RED BLOOD CELLS (BEAKER) (test 0 /100 WBC 0-0 gksm=180) NEUTROPHILS RELATIVE PERCENT (BEAKER) (test 64 % cili=147) LYMPHOCYTES RELATIVE PERCENT (BEAKER) (test 24 % lfos=661) MONOCYTES RELATIVE PERCENT (BEAKER) (test 8 % xxof=951) EOSINOPHILS RELATIVE PERCENT (BEAKER) (test 3 % jvbh=342) BASOPHILS RELATIVE PERCENT (BEAKER) (test 1 % hcmt=048) NEUTROPHILS ABSOLUTE COUNT (BEAKER) (test 4.22 K/ L 1.78-5.38 ixzx=524) LYMPHOCYTES ABSOLUTE COUNT (BEAKER) (test 1.54 K/ L 1.32-3.57 tapu=218) MONOCYTES ABSOLUTE COUNT (BEAKER) (test 0.53 K/ L 0.30-0.82 wpyf=578) EOSINOPHILS ABSOLUTE COUNT (BEAKER) (test 0.20 K/ L 0.04-0.54 soce=137) BASOPHILS ABSOLUTE COUNT (BEAKER) (test 0.03 K/ L 0.01-0.08 lxtk=910) IMMATURE GRANULOCYTES-RELATIVE PERCENT (BEAKER) 1 % 0-1 (test yort=9076) POCT-GLUCOSE [id number] 22:11:00 Test Item Value Reference Range Comments POC-GLUCOSE METER (BEAKER) 319 mg/dL 70-110 Notified HAYLEE BOSS/TESTED AT [facility] (test wttp=3826) [address] [address] [id number] 20:11:00 Test Item Value Reference Range Comments PARTIAL THROMBOPLASTIN TIME (BEAKER) (test 33.3 seconds 22.5-36.0 ywjs=260) POCT-GLUCOSE [id number] 18:49:00 Test Item Value Reference Range Comments POC-GLUCOSE METER (BEAKER) 309 mg/dL 70-110 TESTED AT [address] (test ksob=1505) [place] [address] POCT-GLUCOSE [id number] 14:48:00 Test Item Value Reference Range Comments POC-GLUCOSE METER (BEAKER) 161 mg/dL 70-110 TESTED AT [address] (test rtdm=3405) [place] [address] POCT-GLUCOSE [id number] 14:46:00 Test Item Value Reference Range Comments POC-GLUCOSE METER (BEAKER) 159 mg/dL 70-110 TESTED AT [address] (test trpq=7828) [place] [address] TROPONIN [id number] 13:58:00 Test Item Value Reference Range Comments TROPONIN I (BEAKER) (test swte=392) < ng/mL 0.00-0.03 Troponin I (TnI) levels [...] failure, acidosis, acute neurological disease, and persistent tachyarrhythmia.[id number] 12:25:00 Test Item Value Reference Range Comments PARTIAL THROMBOPLASTIN TIME (BEAKER) (test 30.3 seconds 22.5-36.0 rrhm=780) POCT-GLUCOSE [id number] 12:18:00 Test Item Value Reference Range Comments POC-GLUCOSE METER (BEAKER) 168 mg/dL 70-110 TESTED AT [address] (test tiaf=9270) [place] [address] POCT-GLUCOSE [id number] 11:06:00 Test Item Value Reference Range Comments POC-GLUCOSE METER (BEAKER) 180 mg/dL 70-110 TESTED AT [address] (test nlfg=1867) [place] [address] POCT-GLUCOSE [id number] 10:21:00 Test Item Value Reference Range Comments POC-GLUCOSE METER (BEAKER) 195 mg/dL 70-110 TESTED AT [address] (test zqug=3780) [place] [address] POCT-GLUCOSE [id number] 10:21:00 Test Item Value Reference Range Comments POC-GLUCOSE METER (BEAKER) 180 mg/dL 70-110 TESTED AT [address] (test lujw=0021) [facility] [address] POCT-GLUCOSE [id number] 08:06:00 Test Item Value Reference Range Comments POC-GLUCOSE METER (BEAKER) 218 mg/dL 70-110 TESTED AT [address] (test dzkn=0281) [place] [address] TROPONIN [id number] 07:00:00 Test Item Value Reference Range Comments TROPONIN I (BEAKER) (test gcbn=144) 0.01 ng/mL 0.00-0.03 Troponin I (TnI) levels [...] afterwardsOnce on admission and Daily AM afterwardsPOCT-GLUCOSE [id number] 06:58:00 Test Item Value Reference Range Comments POC-GLUCOSE METER (BEAKER) 248 mg/dL 70-110 TESTED AT [facility] [address] [facility] (test nfcm=7097) [facility] [address] [id number] 06:54:00 Test Item Value Reference Range Comments PHOSPHORUS (BEAKER) (test agji=582) 2.5 mg/dL 2.3-4.7 Once on admission and Daily AM afterwardsOnce on admission and Daily AM afterwardsOnce on admission and Daily AM [id number] 06:54:00 Test Item Value Reference Range Comments MAGNESIUM (BEAKER) (test snwp=404) 2.2 mg/dL 1.6-2.6 Once on admission and Daily AM afterwardsOnce on admission and Daily AM afterwardsOnce on admission and Daily AM afterwardsBASIC METABOLIC [id number] 06:54:00 Test Item Value Reference Range Comments SODIUM (BEAKER) (test 137 meq/L 136-145 gmrg=047) POTASSIUM (BEAKER) (test 4.4 meq/L 3.5-5.1 cvli=346) CHLORIDE (BEAKER) (test 111 meq/L 98-107 nbfa=984) CO2 (BEAKER) (test 22 meq/L 22-29 rbsu=878) BLOOD UREA NITROGEN 37 mg/dL 7-21 (BEAKER) (test apuq=745) CREATININE (BEAKER) (test 1.93 mg/dL 0.57-1.25 ttft=758) GLUCOSE RANDOM (BEAKER) 253 mg/dL 70-105 (test lljt=644) CALCIUM (BEAKER) (test 8.1 mg/dL 8.4-10.2 idsl=287) EGFR (BEAKER) (test 37 mL/min/1.73 sq m ESTIMATED GFR IS NOT kgrv=4127) ACCURATE CREATININE CLEARANCE IN PREDICTING GLOMERULAR FILTRATION RATE. ESTIMATED GFR IS NOT APPLICABLE FOR DIALYSIS PATIENTS. Once on admission and Daily AM afterwardsOnce on admission and Daily AM afterwardsOnce on admission and Daily AM afterwardsCBC W/PLT COUNT & AUTO [id number] 06:42:00 Test Item Value Reference Range Comments WHITE BLOOD CELL COUNT (BEAKER) (test piws=107) 4.8 K/ L 3.5-10.5 RED BLOOD CELL COUNT (BEAKER) (test qduy=762) 3.50 M/ L 4.63-6.08 HEMOGLOBIN (BEAKER) (test axhd=709) 11.0 GM/DL 13.7-17.5 HEMATOCRIT (BEAKER) (test dkls=856) 31.7 % 40.1-51.0 MEAN CORPUSCULAR VOLUME (BEAKER) (test tlyg=511) 90.6 fL 79.0-92.2 MEAN CORPUSCULAR HEMOGLOBIN (BEAKER) (test 31.4 pg 25.7-32.2 xzmm=017) MEAN CORPUSCULAR HEMOGLOBIN CONC (BEAKER) (test 34.7 GM/DL 32.3-36.5 ramo=264) RED CELL DISTRIBUTION WIDTH (BEAKER) (test 13.5 % 11.6-14.4 tcco=673) PLATELET COUNT (BEAKER) (test bdtk=808) 118 K/CU MM 150-450 MEAN PLATELET VOLUME (BEAKER) (test lqbc=613) 12.1 fL 9.4-12.4 NUCLEATED RED BLOOD CELLS (BEAKER) (test 0 /100 WBC 0-0 ybhr=968) NEUTROPHILS RELATIVE PERCENT (BEAKER) (test 42 % hkgb=663) LYMPHOCYTES RELATIVE PERCENT (BEAKER) (test 46 % sxem=494) MONOCYTES RELATIVE PERCENT (BEAKER) (test 7 % zfbb=070) EOSINOPHILS RELATIVE PERCENT (BEAKER) (test 4 % mavj=713) BASOPHILS RELATIVE PERCENT (BEAKER) (test 1 % gbxt=635) NEUTROPHILS ABSOLUTE COUNT (BEAKER) (test 2.00 K/ L 1.78-5.38 ntly=119) LYMPHOCYTES ABSOLUTE COUNT (BEAKER) (test 2.22 K/ L 1.32-3.57 vwka=534) MONOCYTES ABSOLUTE COUNT (BEAKER) (test 0.34 K/ L 0.30-0.82 seao=519) EOSINOPHILS ABSOLUTE COUNT (BEAKER) (test 0.20 K/ L 0.04-0.54 hgiu=583) BASOPHILS ABSOLUTE COUNT (BEAKER) (test 0.04 K/ L 0.01-0.08 czag=959) IMMATURE GRANULOCYTES-RELATIVE PERCENT (BEAKER) 1 % 0-1 (test ukoo=0537) [id number] 06:28:00 Test Item Value Reference Range Comments PARTIAL THROMBOPLASTIN TIME (BEAKER) (test 30.6 seconds 22.5-36.0 tuse=123) POCT-GLUCOSE [id number] 06:01:00 Test Item Value Reference Range Comments POC-GLUCOSE METER (BEAKER) 266 mg/dL 70-110 TESTED AT [address] (test rnus=1664) [place] [id number] POCT-GLUCOSE [id number] 04:57:00 Test Item Value Reference Range Comments POC-GLUCOSE METER (BEAKER) 271 mg/dL 70-110 TESTED AT [address] (test xuqy=2582) [facility] [address] POCT-GLUCOSE [id number] 04:05:00 Test Item Value Reference Range Comments POC-GLUCOSE METER (BEAKER) 308 mg/dL 70-110 Notified HAYLEE BOSS/TESTED AT [facility] (test lbrd=3534) [address] [place] [address] POCT-GLUCOSE [id number] 02:57:00 Test Item Value Reference Range Comments POC-GLUCOSE METER (BEAKER) 343 mg/dL 70-110 Notified HAYLEE BOSS/TESTED AT [facility] (test qzvf=9945) [address] [place] [address] RAD, CHEST, 1 VIEW, NON [id number] 02:27:00Reason for exam:->mediastinal wideningShould this be performed [...] Wilmer Kline Verified Date/Time: 01/07/2019 02:27:45 POCT-GLUCOSE [id number] 01:57:00 Test Item Value Reference Range Comments POC-GLUCOSE METER (BEAKER) 369 mg/dL 70-110 TESTED AT [address] (test pfxk=5983) [place] [id number] POCT-GLUCOSE [id number] 01:06:00 Test Item Value Reference Range Comments POC-GLUCOSE METER (BEAKER) 395 mg/dL 70-110 Notified HAYLEE BOSS/TESTED AT [facility] (test iqtl=0233) [address] [place] [address] TROPONIN [id number] 00:36:00 Test Item Value Reference Range Comments TROPONIN I (BEAKER) (test czzp=190) 0.01 ng/mL 0.00-0.03 Troponin I (TnI) levels [...] NATRIURETIC PEPTIDE (BEAKER) (test 151 pg/mL 0-100 xjhn=227) [id number] 00:19:00 Test Item Value Reference Range Comments PARTIAL THROMBOPLASTIN TIME (BEAKER) (test 28.2 seconds 22.5-36.0 cjez=107) Prior to initiating heparinPOCT-GLUCOSE [id number] 00:16:00 Test Item Value Reference Range Comments POC-GLUCOSE METER (BEAKER) 413 mg/dL 70-110 TESTED AT [address] (test ixry=1757) [place] [id number] POCT-GLUCOSE [id number] 23:10:00 Test Item Value Reference Range Comments POC-GLUCOSE METER (BEAKER) 452 mg/dL 70-110 Notified HAYLEE BOSS/TESTED AT [facility] (test mxby=8213) [address] [facility] [address] POCT-GLUCOSE [id number] 22:06:00 Test Item Value Reference Range Comments POC-GLUCOSE METER (BEAKER) 383 mg/dL 70-110 TESTED AT [facility] [address] (test gbac=2470) [facility] [address] CT, BRAIN, WITHOUT [id number] 21:38:00FINAL REPORT CT Head without contrast CLINICAL [...] by: WILMER KLINE MD on 02/2019 09:38 [facility] [id number] 21:12:00 Test Item Value Reference Range Comments SODIUM (BEAKER) (test 134 meq/L 136-145 rsbx=561) POTASSIUM (BEAKER) (test 4.9 meq/L 3.5-5.1 Specimen slightly fgtb=475) hemolyzed CHLORIDE (BEAKER) (test 107 meq/L 98-107 xzhd=391) CO2 (BEAKER) (test 19 meq/L 22-29 pgdr=674) BLOOD UREA NITROGEN 36 mg/dL 7-21 (BEAKER) (test mtgj=063) CREATININE (BEAKER) (test 1.95 mg/dL 0.57-1.25 Specimen slightly orwr=553) hemolyzed GLUCOSE RANDOM (BEAKER) 311 mg/dL 70-105 (test mcfb=539) CALCIUM (BEAKER) (test 8.5 mg/dL 8.4-10.2 iprh=909) EGFR (BEAKER) (test 36 mL/min/1.73 sq m ESTIMATED GFR IS NOT tzst=4412) ACCURATE CREATININE CLEARANCE IN PREDICTING GLOMERULAR FILTRATION RATE. ESTIMATED GFR IS NOT APPLICABLE FOR DIALYSIS PATIENTS. HEMOGLOBIN [id number] 20:17:00 Test Item Value Reference Range Comments HEMOGLOBIN A1C (BEAKER) (test gfvl=342) 11.9 % 4.3-6.1 TROPONIN [id number] 19:52:00 Test Item Value Reference Range Comments TROPONIN I (BEAKER) (test wiua=008) < ng/mL 0.00-0.03 Troponin I (TnI) levels [...] acute neurological disease, and persistent tachyarrhythmia.HEPATIC FUNCTION [id number] 19:46: 00 Test Item Value Reference Range Comments TOTAL PROTEIN (BEAKER) (test 6.3 gm/dL 6.0-8.3 Specimen slightly hemolyzed ugym=921) ALBUMIN (BEAKER) (test 2.8 g/dL 3.5-5.0 Specimen slightly hemolyzed nghu=5903) BILIRUBIN TOTAL (BEAKER) (test 0.4 mg/dL 0.2-1.2 Specimen slightly hemolyzed adti=130) BILIRUBIN DIRECT (BEAKER) (test 0.1 mg/dL 0.1-0.5 Specimen slightly hemolyzed egkf=195) ALKALINE PHOSPHATASE (BEAKER) 104 U/L 40-150 (test inrt=779) AST (SGOT) (BEAKER) (test 29 U/L 5-34 Specimen slightly hemolyzed tyvh=227) ALT (SGPT) (BEAKER) (test 23 U/L 6-55 Specimen slightly hemolyzed adod=407) Specimen moderately [id number] 19:32:00 Test Item Value Reference Range Comments PARTIAL THROMBOPLASTIN TIME (BEAKER) (test 28.1 seconds 22.5-36.0 utan=667) PROTHROMBIN TIME/[id number] 19:31:00 Test Item Value Reference Range Comments PROTIME (BEAKER) (test kjwy=353) 11.4 seconds 11.9-14.2 INR (BEAKER) (test jvin=190) 0.9 <=5.9 Effective 09/23/2018: PT Reference Range ChangeNew: 11.9-14.2 Previous: 11.7- 14.7RECOMMENDED COUMADIN/WARFARIN INR THERAPY RANGESSTANDARD DOSE: 2.0-3.0 Includes: PROPHYLAXIS for venous thrombosis, systemic embolization; TREATMENT for venous thrombosis and/or pulmonary embolus.HIGH RISK: Target INR is2.5-3.5 for patients wiht mechanical heart valves.CBC W/PLT COUNT & AUTO [id number] 19:25:00 Test Item Value Reference Range Comments WHITE BLOOD CELL COUNT (BEAKER) (test ckvn=704) 5.2 K/ L 3.5-10.5 RED BLOOD CELL COUNT (BEAKER) (test jwqg=202) 3.84 M/ L 4.63-6.08 HEMOGLOBIN (BEAKER) (test mydo=929) 12.2 GM/DL 13.7-17.5 HEMATOCRIT (BEAKER) (test dmmq=409) 34.6 % 40.1-51.0 MEAN CORPUSCULAR VOLUME (BEAKER) (test dqlq=725) 90.1 fL 79.0-92.2 MEAN CORPUSCULAR HEMOGLOBIN (BEAKER) (test 31.8 pg 25.7-32.2 mdzl=965) MEAN CORPUSCULAR HEMOGLOBIN CONC (BEAKER) (test 35.3 GM/DL 32.3-36.5 yxfp=509) RED CELL DISTRIBUTION WIDTH (BEAKER) (test 13.6 % 11.6-14.4 czvd=591) PLATELET COUNT (BEAKER) (test myug=873) 140 K/CU MM 150-450 MEAN PLATELET VOLUME (BEAKER) (test gvdd=865) 11.8 fL 9.4-12.4 NUCLEATED RED BLOOD CELLS (BEAKER) (test 0 /100 WBC 0-0 oyla=975) NEUTROPHILS RELATIVE PERCENT (BEAKER) (test 54 % onxt=260) LYMPHOCYTES RELATIVE PERCENT (BEAKER) (test 36 % enec=571) MONOCYTES RELATIVE PERCENT (BEAKER) (test 5 % nshg=648) EOSINOPHILS RELATIVE PERCENT (BEAKER) (test 3 % ndiu=169) BASOPHILS RELATIVE PERCENT (BEAKER) (test 1 % qtsv=994) NEUTROPHILS ABSOLUTE COUNT (BEAKER) (test 2.82 K/ L 1.78-5.38 dvkk=955) LYMPHOCYTES ABSOLUTE COUNT (BEAKER) (test 1.89 K/ L 1.32-3.57 shwi=566) MONOCYTES ABSOLUTE COUNT (BEAKER) (test 0.28 K/ L 0.30-0.82 evdp=089) EOSINOPHILS ABSOLUTE COUNT (BEAKER) (test 0.17 K/ L 0.04-0.54 lbmm=222) BASOPHILS ABSOLUTE COUNT (BEAKER) (test 0.04 K/ L 0.01-0.08 qgsk=483) IMMATURE GRANULOCYTES-RELATIVE PERCENT (BEAKER) 1 % 0-1 (test azpm=2771) POCT-GLUCOSE [id number] 17:51:00 Test Item Value Reference Range Comments POC-GLUCOSE METER (BEAKER) 342 mg/dL 70-110 Notified HAYLEE BOSS/TESTED AT [facility] (test ozsu=6367) [id number] [facility] [id number]
--- OUTSIDE RECORDS SUMMARY | 2019-08-01 20:00 | XMS REPORT | Summary of Care ---
:1965 Author Organization [facility] Address [address] [place] [id number] Care Team Providers Name Role Phone Maria E Ornelas Primary Care Provider Reason for Referral (Routine) Status Reason Specialty Diagnoses / Referred By Referred To Procedures Contact Contact New Request Patient is Ophthalmology Diagnoses Type 2 diabetes mellitus with retinopathy of both eyes, with long-term current use of insulin, macular edema presence unspecified, unspecified retinopathy severity Ceci, Established with Procedures CONSULT/REFERRAL OPHTHALMOLOGY JANET Johnson a Specific [facility] [address] [place] [phone] (Routine) Status Reason Specialty Diagnoses / Procedures Referred By Referred To Contact Contact New Request Neurology Diagnoses History of CVA (cerebrovascular accident) Diabetic polyneuropathy associated with type 2 diabetes mellitus Seizures Maria E Ornelas, Procedures CONSULT/REFERRAL NEUROLOGY [address] [place] [phone] (Routine) Status Reason Specialty Diagnoses / Procedures Referred By Referred To Contact Contact New Request Gastroenterology Diagnoses Cirrhosis of liver without ascites, unspecified hepatic cirrhosis type Encounter for screening colonoscopy Maria E Ornelas Procedures CONSULT/REFERRAL GASTROENTEROLOGY JANET Carreno [address] [place] [address] [place] [phone] (Routine) Status Reason Specialty Diagnoses / Referred By Referred To Procedures Contact Contact New Request Endocrinology Diagnoses Type 2 diabetes mellitus with retinopathy of both eyes, with long-term current use of insulin, macular edema presence unspecified, unspecified retinopathy severity Maria E Ornelas Diabetes & Procedures CONSULT/REFERRAL ENDOCRINOLOGY Preferred Location: [facility] JANET Carreno Metabolism [address] [place] [address] [place] [phone] (Routine) Status Reason Specialty Diagnoses / Procedures Referred By Referred To Contact Contact New Request Surgery Diagnoses Coronary artery disease involving [place] coronary artery of [place] heart without angina pectoris History of [place] (myocardial infarction) Maria E Ornelas, Procedures CONSULT/REFERRAL CARDIOVASCULAR SURGERY [address] [place] [phone] (Routine) Status Reason Specialty Diagnoses / Referred By Referred To Procedures Contact Contact New Request Patient is Cardiology Diagnoses Coronary artery disease involving [place] coronary artery of [place] heart without angina pectoris History of CVA (cerebrovascular accident) History of [place] (myocardial infarction) Essential hypertension Maria E Ornelas Established with Procedures CONSULT/REFERRAL CARDIOLOGY JANET Carreno a Specific [address] [place] [address] Provider ELDA WAGONER [phone] (Routine) Status Reason Specialty Diagnoses / Referred By Referred To Procedures Contact Contact New Request Location Nephrology Diagnoses CKD (chronic kidney disease), stage III Maria E Ornelas Preference Procedures CONSULT/REFERRAL NEPHROLOGY JANET Carreno [address] [place] [address] [place] [phone] Reason for Visit Reason Comments Establish Care Referral/consult Encounter Details Date Type Department Care Team Description 05/26/2019 Office Visit [facility] Family Maria E Ornelas, Cirrhosis of liver without ascites, unspecified hepatic cirrhosis type (Primary Dx); [facility] GONZALES Encounter for screening colonoscopy; [address] [place] [address] Coronary artery disease involving [place] coronary artery of [place] heart without angina pectoris; Drive [place], [place] History of [place] (myocardial infarction); [place] [address] Essential hypertension; [phone] History of CVA (cerebrovascular accident); [phone] Seizures; Diabetic polyneuropathy associated with type 2 diabetes mellitus; Type 2 diabetes mellitus with retinopathy of both eyes, with long-term current use of insulin, macular edema presence unspecified, unspecified retinopathy severity; CKD (chronic kidney disease), stage III; Obesity (BMI 30.0-34.9); Need for dpszcldgnk-giqydgm-azmnbbzgf (Tdap) vaccine; Tobacco use disorder; Encounter for smoking cessation counseling Allergies Active Allergy Reactions Severity Noted Date Comments Morphine Hives, Itching 06/25/2013 Hydrocodone-Acetaminophen Hives, Itching 06/25/2013 documented as of this encounter (statuses as of 05/26/2019) Medications Medication Sig Dispensed Refills Start Date End Date Status aspirin 325 mg Take 325 mg 0 Active tablet by mouth daily. TRAMADOL 50 mg TAKE ONE 120 tablet 0 08/23/2016 Active tablet TABLET BY MOUTH EVERY 6 HOURS NEEDED FOR PAIN (SCALE 4-6) CITALOPRAM 20 mg TAKE 1 TABLET 30 tablet 3 12/04/2016 Active tablet BY MOUTH EVERY DAY. clopidogrel 75 mg TAKE 1 TABLET 30 tablet 2 02/11/2017 Active tablet BY MOUTH EVERY DAY. ATENOLOL 50 mg TAKE 1 TABLET 60 tablet 0 04/03/2017 Active tablet BY MOUTH TWICE A DAY. proMETHazine 25 mg Take 1 tablet 20 tablet 0 05/14/2019 Active tabletIndications: by mouth Vomiting, every 6 (six) intractability of hours as vomiting not needed for specified, presence Nausea and of nausea not Vomiting specified, (N/V). unspecified vomiting type levETIRAcetam 250 Take 250 mg 0 Active mg tablet by mouth 2 (two) times daily. insulin NPH hum/reg inject 80 0 Active insulin hm (NOVOLIN Units under 70/30 SC) the skin 2 (two) times daily. spironolactone 25 Take 25 mg by 0 Active mg tablet mouth daily. lisinopril 10 mg Take 10 mg by 0 Active tablet mouth daily. furosemide 40 mg Take 40 mg by 0 Active tablet mouth 2 (two) times daily. simvastatin 40 mg Take 40 mg by 0 Active tablet mouth at bedtime. acetaZOLAMIDE 500 Take 500 mg 0 Active mg capsule by mouth 2 (two) times daily. gabapentin 300 mg Take 300 mg 0 Active capsuleIndications: by mouth. take 3 capsules BID Indications: take 3 capsules BID brinzolamide 1 Drop 3 0 Active (AZOPT) 1 % (three) times ophthalmic daily. suspension drops Brimonidine-Timolol Place in 0 Active (COMBIGAN) 0.2-0.5 each eye. % ophthalmic drops travoprost 1 Drop at 0 Active (TRAVATAN Z) 0.004 bedtime. % ophthalmic solution tamsulosin (FLOMAX) Take 1 30 capsule 5 02/19/2016 05/26/19 Discontinued 0.4 mg 24 hr capsule by 20 (Discontinued by capsule mouth every another evening. clinician) simvastatin (ZOCOR) Take 1 tablet 30 tablet 5 02/19/2016 05/26/19 Discontinued 80 mg tablet by mouth at 20 (Discontinued by bedtime. another clinician) Saxagliptin Take 1 tablet 30 tablet 5 02/19/2016 05/26/19 Discontinued (ONGLYZA) 5 mg by mouth 20 (Discontinued by tablet every another morning. clinician) LORazepam (ATIVAN) Take 1 tablet 90 tablet 3 02/19/2016 05/26/19 Discontinued 1 mg tablet by mouth 3 20 (Discontinued by (three) times another daily as clinician) needed for Anxiety or Agitation. lisinopril 20 mg TAKE 1 TABLET 30 tablet 2 02/11/2017 05/26/19 Discontinued tablet BY MOUTH 20 (Discontinued by EVERY DAY. another clinician) gabapentin 600 mg TAKE 1 TABLET 120 tablet 2 02/11/2017 05/26/19 Discontinued tablet BY MOUTH FOUR 20 (Discontinued by TIMES A DAY another clinician) glyBURIDE-metformin TAKE 2 120 tablet 2 02/11/2017 05/26/19 Discontinued 5-500 mg tablet TABLETS BY 20 (Discontinued by MOUTH TWICE A another DAY clinician) documented as of this encounter (statuses as of 05/26/2019) Active Problems Problem Noted Date Seizures 05/26/2019 History of CVA (cerebrovascular accident) 05/26/2019 History of [place] (myocardial infarction) 05/26/2019 Encounter for screening colonoscopy 05/26/2019 Coronary artery disease involving [place] coronary artery of [place] heart 05/26 without angina pectoris Cirrhosis of liver without ascites, unspecified hepatic cirrhosis type 2019 Diabetic polyneuropathy associated with type 2 diabetes mellitus 05/26/2019 CKD (chronic kidney disease), stage III 05/26/2019 Tobacco use disorder 05/26/2019 Type 2 diabetes mellitus with retinopathy of both eyes, with long-term 2015 current use of insulin, macular edema presence unspecified, unspecified retinopathy severity Essential hypertension 02/19/2016 Mixed hyperlipidemia 02/19/2016 Left knee pain 07/06/2015 documented as of this encounter (statuses as of 05/26/2019) Immunizations Name Administration Dates Next Due Tdap 05/26/2019 documented as of this encounter Social History Tobacco Use Types Packs/Day Years Used Date Current Every Day Smoker Cigarettes 0.33 7 Smokeless Tobacco: Never Used Tobacco Cessation: Ready to Quit: No; Counseling Given: No Alcohol Use Drinks/Week oz/Week Comments Not Currently 0 Standard drinks or equivalent 0.0 Alcohol Habits Answer Date Recorded How often do you have a drink containing alcohol? Never 05/26/2019 How many drinks containing alcohol do you have on a typical Not asked day when you are drinking? How often do you have six or more drinks on one occasion? Not asked Sex Assigned at Date Recorded Not on file Job Start Date Occupation Industry Not on file Not on file Not on file Travel History Travel Start Travel End No recent travel history available. 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 Pulse 86 05/26/2019 7:42 AM WINDOWS SERVER ENGINEER Temperature 36.7 C (98 F) 05/26/2019 7:42 AM WINDOWS SERVER ENGINEER Respiratory Rate - - Oxygen Saturation 98% 05/26/2019 7:42 AM WINDOWS SERVER ENGINEER Inhaled Oxygen Concentration - - Weight 92.5 kg (204 lb) 05/26/2019 7:42 AM WINDOWS SERVER ENGINEER Height 170.2 cm (5' 7") 05/26/2019 7:42 AM WINDOWS SERVER ENGINEER Body Mass Index 31.95 05/26/2019 7:42 AM WINDOWS SERVER ENGINEER documented in this encounter Patient Instructions Patient InstructionsMaria E Ornelas PA - 05/26/2019 7:20 AM WINDOWS SERVER ENGINEER Understanding USDA MyPlate The USDA (U.S. Department of Agriculture) has guidelines to help you make healthy food choices. These are called MyPlate. MyPlate shows the food groups that make up healthy meals using the image of a place setting. Before you eat, think about the healthiest choices for what to put onto your plate or into your cup or bowl. To learn more about building a healthy plate, visit www.choosemyplate.gov. The food groups Fruits. Any fruit or 100% fruit juice counts as part of the Fruit Group. Fruits may be fresh, canned, frozen, or dried, and may be whole, cut-up, or pureed. Make half your plate fruits and vegetables. Vegetables. Any vegetable or 100% vegetable juice counts as a member of the Vegetable Group. Vegetables may be fresh, frozen, canned, or dried. They can be served raw or cooked and may be whole, cut-up, or mashed. Make half your plate fruits and vegetables. Grains. All foods made from grains are part of the Grains Group. These include wheat, rice, oats,cornmeal, and barley such as bread, pasta, oatmeal, cereal, tortillas, and grits. Grains should be no more than a quarter of your plate. At least half of your grains should be whole grains. Protein. This group includes meat, poultry, seafood, beans and peas, eggs, processed soy products(like tofu), nuts (including nut butters), and seeds. Make protein choices no more than a quarter ofyour plate. Meat and poultry choices should be lean or low fat. Dairy. All fluid milk products and foods made from milk that contain calcium , like yogurt and cheese, are part of the Dairy Group. (Foods that have little calcium, such as cream, butter, and cream cheese, are not part of the group.) Most dairy choices should be low-fat or fat-free. Oils. These are fats that are liquid at room temperature. They include canola , corn, olive, soybean, and sunflower oil. Foods that are mainly oil include mayonnaise, certain salad dressings, and soft margarines. You should have only 5 to 7 teaspoons of oils a day. You probably already get this muchfrom the food you eat. TouchOfModern.com last reviewed this educational content on 11/26/201619996849-6767 The [employer]. [address] [place] [address], [place] [address]. All rights reserved. This information is not intended as a substitute for professional medical care. Always follow your healthcare professional's instructions. Aerobic Exercise for a Healthy Heart Exercise is a lot more than an energy booster and a stress reliever. It also strengthens your heart muscle, lowers your blood pressure and cholesterol, and perry calories. It can also improve your resting muscle tone, and your mood. Choose an aerobic activity Choose an activity that makes your heart and lungs work harder than they do when you rest or walk normally. This aerobic exercise can improve the way your heart and other muscles use oxygen. Make it fun by exercising with a friend and choosing an activity you enjoy. Here are some ideas: Walking Swimming Bicycling Stair climbing Dancing Jogging Gardening Exercise regularly If you havent been exercising regularly, get your doctors OK first. Then start slowly. Here are some tips: Begin exercising 3 times a week for 5 to 10minutes at a time. When you feel comfortable, add a few minutes each session. Slowly build up to exercising 3 to 4 times each week. Each session should last for 40 minutes, onaverage, and involve moderate- to vigorous-intensity physical activity. Your goal should be at least 30 minutes of moderate-intensity aerobic activity at least 5 days per week for a total of 150 or at least 25 minutes of vigorous aerobic activity at least 3 days per week for a total of 75 minutes If you have been given nitroglycerin, be sure to carry it when you exercise. If you get chest pain (angina) when youre exercising, stop what youre doing, take your nitroglycerin, and call your doctor. [employer] last reviewed this educational content on 09/28/201519991568-3408 The [employer]. [address] [place] [address]. All rights reserved. This information is not intended as a substitute for professional medical care. Always follow your healthcare professional's instructions. Diphtheria, Tetanus, Acellular Pertussis, Poliovirus Vaccine Brand Names: Kinrix, Quadracel What is this medicine? DIPHTHERIA TOXOID, TETANUS TOXOID, ACELLULAR PERTUSSIS VACCINE, DTaP; INACTIVATED POLIOVIRUS VACCINE, IPV (dif THEER ee TOK soid, TET n us TOK soid , ey LORAINE yuh ler per [facility] [place] SEEN, DTaP; in ak [facility]arii [facility] [place] SEEN, IPV ) is used to help prevent diphtheria, tetanus, pertussis, and polio infections. How should I use this medicine? This vaccine is for injection into a muscle. It is given by a health career representative. A copy of Vaccine Information Statements will be given before each vaccination. Read this sheet carefully each time. The sheet may change frequently. Talk to your hearings reporter regarding the use of this medicine in children. While this drug may be prescribed for children as young as 4 years for selected conditions, precautions do apply. What side effects may I notice from receiving this medicine? Side effects that you should report to your doctor or health career representative as soon as possible: allergic reactions like skin rash, itching or hives, swelling of the face, lips, or tongue breathing problems fever over 103 degrees F inconsolable crying for 3 hours or more seizures unusually weak or tired Side effects that usually do not require medical attention (report to your doctor or health career representative if they continue or are bothersome): bruising, pain, swelling at site where injected fussy loss of appetite low-grade fever sleepy vomiting What may interact with this medicine? medicines that suppress your immune function like adalimumab, anakinra, infliximab medicines to treat cancer steroid medicines like prednisone or cortisone What if I miss a dose? It is important not to miss your dose. Call your doctor or health career representative if you are unable to keep an appointment. Where should I keep my medicine? This vaccine is only given in a clinic, pharmacy, doctor's office, or other health care setting and will not be stored at home. What should I tell my health care provider before I take this medicine? They need to know if you have any of these conditions: blood disorders like hemophilia fever or infection immune system problems neurologic disease seizures take medicines that treat or prevent blood clots an unusual or allergic reaction to Diphtheria Toxoid, Tetanus Toxoid, Acellular Pertussis Vaccine, DTaP; Inactivated Poliovirus Vaccine, IPV, other medicines, neomycin, latex, polymyxin b, polysorbate 80, foods, dyes, or preservatives or trying to get breast-feeding What should I watch for while using this medicine? Contact your doctor or health career representative and get emergency medical care if any serious side effects occur. This vaccine, like all vaccines, may not fully protect everyone. NOTE:This sheet is a summary. It may not cover all possible information. If you have questions aboutthis medicine, talk to your doctor, pharmacist, or health care provider. Copyright 2018 Elsevier How to Quit Smoking Smoking is a hard habit to break. About half of allpeople who have ever smoked have been able to quit. Most peoplewho still smoke want to quit. Here are some of the best ways to stop smoking. Keep in mind the health benefits of quitting The health benefits of quitting start right away. They keep improving the longer you go without smoking. Knowing this can help inspire you to stay on track. These benefits occur at any age. If you are 17 or 70, quitting is a good choice. Some of the health benefits after your last cigarette include: 20 minutes: Your blood pressure and pulse return to normal. 8 hours: Your oxygen levels return to normal. 2 days: Your ability to smell and taste start to improve as damaged nerves regrow. 2 to 3 weeks: Your circulation and lung function improve. 1 to 9 months: Your coughing, congestion, and shortness of breath decrease. Your tiredness decreases. 1 year: Your risk of heart attack decreases by half. 5 years: Your risk of lung cancer decreases by half. Your risk of stroke becomes the same as a nonsmokers. Go cold turkey Mostformer smokers quit cold turkey. This means stopping all at once. Trying to cut back slowly often doesn't work as well. This may be because it continues the habit of smoking. Also, you may inhalemore smoke while smoking fewer cigarettes. This leads to the same amount of nicotine in your body. Get support Support programs can be a big help, especially for heavy smokers. These groups offer lectures, ways to change behavior, and peer support. Here are some ways to find a support program: Free national quitline 449-CWGT-XMN (223-094-7022) [facility] quit-smoking programs [place] [employer] 015-256-8630 [place] [employer] 156-791-3254 Support at home is important too. Family and friends can offer praise and reassurance. If the smokerin your life finds it hard to quit, encourage them to keep trying. Try nrxt-ytm-ielwbin medicine Nicotine replacement therapymay make iteasier to quit. Some aids are available without a prescription. These include a nicotine patch, gum, and lozenges. But itis best to use these under the careof your healthcare provider. The skin patch gives a steady supply of nicotine. Nicotine gum and lozenges giveshort-time doses of low levels of nicotine. Both methods reduce the craving for cigarettes. If youhave nausea, vomiting, dizziness, weakness, or a fast heartbeat, stop using these products.See your healthcare provider. Ask about prescription medicine After reviewingyour smoking patterns and past attempts to quit, your doctor may offer a prescription medicine such as bupropion, varenicline, a nicotine inhaler, or nasal spray. Each has advantages and side effects. Your doctor can review these with you. Keep trying Most smokers make many attempts at quitting before they are successful. Its important not to giveup. For more information For more on how to quit smoking, try these online resources: Go to Smokefree.gov. Read "Clearing the Air" from the National Cancer Moran at smokefree.gov/ sites/default/files/pdf/dqndscmc-cvz-pwb-accessible.pdf. TouchOfModern[employer] last reviewed this educational content on The [employer]. [address] [place] [address]. All rights reserved. This information is not intended as a substitute for professional medical care. Always follow your healthcare professional's instructions. 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 Patient here to re-establish care. He was previously under the care of Dr. Pettit, SANTY 02/19/16. He is here requesting referral to multiple specialists: Renal- CKD III. No Nsaids. Drinks plenty of water. Neurology- Seizure Disorder, hx of CVA, neuropathy-b/l UE and LE ongoing for several years. On gabapentin therapy, tramadol prn. GI- Cirrhosis. Dx at [facility]. Completed biopsy in 2002 in [place]. Reports hx of hepatitis A orB, unknown exact dx. Cardiothoracic surgery- was told he needed CABG due to CAD but patient did not complete due to lack of insurance. He is ready to be referred to discuss. No cp , palpitations, sob, dizziness, syncope. Cardio- Dr. Oquendo. Manages HTN, CAD/FL, hx of CVA Endo- requesting referral to [facility] Endo. Was on triple agent oral therapy but switched to 70/30. Ophtalmology- Under the care of Dr. John in [place]. SANTY 02/2019. DM retinopathy Requesting TDAP: New grandchild coming soon No complaints with prior vaccination No f/c No cough, congestion, rhinorrhea, ear pain, sore throat No body aches No abdominal pain, n/v/d/c Allergies Wero is allergic to morphine and vicodin [hydrocodone-acetaminophen]. Medications Current Outpatient Medications Medication Sig Dispense Refill acetaZOLAMIDE 500 mg capsule Take 500 mg by mouth 2 (two) times daily. Brimonidine-Timolol (COMBIGAN) 0.2-0.5 % ophthalmic drops Place in each eye. brinzolamide (AZOPT) 1 % ophthalmic suspension drops 1 Drop 3 (three) times daily. furosemide 40 mg tablet Take 40 mg by mouth 2 (two) times daily. gabapentin 300 mg capsule Take 300 mg by mouth. Indications: take 3 capsules BID insulin NPH hum/reg insulin hm (NOVOLIN 70/30 SC) inject 80 Units under the skin 2 (two) times daily. levETIRAcetam 250 mg tablet Take 250 mg by mouth 2 (two) times daily. lisinopril 10 mg tablet Take 10 mg by mouth daily. simvastatin 40 mg tablet Take 40 mg by mouth at bedtime. spironolactone 25 mg tablet Take 25 mg by mouth daily. travoprost (TRAVATAN Z) 0.004 % ophthalmic solution 1 Drop at bedtime. proMETHazine 25 mg tablet Take 1 tablet by mouth every 6 (six) hours as needed for Nausea and Vomiting (N/V). 20 tablet 0 ATENOLOL 50 mg tablet TAKE 1 TABLET BY MOUTH TWICE A DAY. 60 tablet 0 clopidogrel 75 mg tablet TAKE 1 TABLET BY MOUTH EVERY DAY. 30 tablet 2 CITALOPRAM 20 mg tablet TAKE 1 TABLET BY MOUTH EVERY DAY. 30 tablet 3 TRAMADOL 50 mg tablet TAKE ONE TABLET BY MOUTH EVERY 6 HOURS NEEDED FOR PAIN (SCALE 4-6) 120tablet 0 aspirin 325 mg tablet Take 325 mg by mouth daily. No current facility-administered medications for this visit. Histories Past Medical History: Diagnosis Date Anxiety CAD (coronary artery disease) Cirrhosis CKD (chronic kidney disease), stage III CVA (cerebral vascular accident) 01/2018 Essential hypertension, benign Heart attack Kidney stones Left knee pain 07/06/2015 Neuropathy Other and unspecified hyperlipidemia PAD (peripheral artery disease) Type II or unspecified type diabetes mellitus without mention of complication, not stated as uncontrolled Past Surgical History: Procedure Laterality Date JOINT SURGERY Lt ACL " OTHER Lower GI STENT PLACEMENT (SHX) Social History Socioeconomic History Marital status: Spouse name: Not on file Number of children: Not on file Years of education: Not on file Highest education level: Not on file Occupational History Not on file Social Needs Financial resource strain: Not on file Food insecurity: Worry: Not on file Inability: Not on file Transportation needs: Medical: Not on file Non-medical: Not on file Tobacco Use Smoking status: Current Every Day Smoker Packs/day: 0.33 Years: 7.00 Pack years: 2.31 Types: Cigarettes Smokeless tobacco: Never Used Substance and Sexual Activity Alcohol use: Not Currently Alcohol/week: 0.0 standard drinks Frequency: Never Drug use: No Sexual activity: Not on file Lifestyle Physical activity: Days per week: Not on file Minutes per session: Not on file Stress: Not on file Relationships Social connections: Talks on phone: Not on file Gets together: Not on file Attends islam service: Not on file Active member of club or organization: Not on file Attends meetings of clubs or organizations: Not on file Relationship status: Not on file Intimate partner violence: Fear of current or ex partner: Not on file Emotionally abused: Not on file Physically abused: Not on file Forced sexual activity: Not on file Other Topics Concern Not on file Social History Narrative Lives at home with and daughter, daughter and son-in-law Family History Problem Relation Age of Onset Heart Mother Diabetes Mother Stroke Mother Review of Systems Constitutional: Negative for activity change, appetite change, chills, diaphoresis, fatigue, fever, unexpected weight change, weight gain and weight loss. HENT: Negative for congestion, ear pain, postnasal drip, rhinorrhea, sinus pressure, sneezing and sore throat. Eyes: Negative for photophobia and visual disturbance. Respiratory: Negative for cough, chest tightness, shortness of breath and wheezing. Cardiovascular: Negative for chest pain, palpitations and leg swelling. Gastrointestinal: Negative for abdominal distention, abdominal pain, anal bleeding, blood in stool, constipation, diarrhea, nausea, rectal pain and vomiting. Genitourinary: Negative for bladder incontinence, dysuria, urgency, polyuria, frequency and hematuria. Musculoskeletal: Positive for arthralgias (chronic, intermittent, unchanged). Negative for back painand myalgias. Neurological: Positive for numbness (chronic, unchanged). Negative for dizziness , tremors, seizures (controlled on medicine), syncope, speech difficulty, weakness, light-headedness and headaches. Psychiatric/Behavioral: Negative for agitation, behavioral problems and confusion. Hematological: Negative for cold intolerance and heat intolerance. Endocrine: Negative for goiter, hair loss, cold intolerance, heat intolerance, polydipsia, polyphagia, polyuria, weight gain and weight loss. Vital Signs BP 110/77 | Pulse 86 | Temp 36.7 C (98 F) (Tympanic) | Ht 5' 7" (1.702 m ) | Wt 204 lb (92.5 kg) | SpO2 98% | BMI 31.95 kg/m Physical Exam Constitutional: He is oriented to person, place, and time. He appears well- developed and well-nourished. No distress. HENT: Head: Normocephalic and atraumatic. Right Ear: Tympanic membrane, external ear and ear canal normal. Left Ear: Tympanic membrane, external ear and ear canal normal. Nose: Nose normal. Mouth/Throat: Oropharynx is clear and moist. Neck: Neck supple. Carotid bruit is not present. Cardiovascular: Normal rate, regular rhythm, normal heart sounds and intact distal pulses. Pulmonary/Chest: Effort normal and breath sounds normal. Abdominal: Soft. Bowel sounds are normal. He exhibits no distension. There is no tenderness. There is no guarding. Musculoskeletal: He exhibits no edema or tenderness. Patient using walker, at baseline Lymphadenopathy: He has no cervical adenopathy. Neurological: He is alert and oriented to person, place, and time. Skin: Skin is warm and dry. He is not diaphoretic. Psychiatric: He has a normal mood and affect. His behavior is normal. Nursing note and vitals reviewed. Assessment/Plan Cirrhosis of liver without ascites, unspecified hepatic cirrhosis type ( primary encounter diagnosis) Plan: CONSULT/REFERRAL GASTROENTEROLOGY Reports hx of cirrhosis, previously under the care of Elizabeth BRINK. Recently received new insurance,would like to begin seeing [facility], will refer. Avoid etoh Avoid nsaids, tylenol Encounter for screening colonoscopy Plan: CONSULT/REFERRAL GASTROENTEROLOGY Due for screening colonoscopy, will refer to [facility] GI Coronary artery disease involving [place] coronary artery of [place] heart without angina pectoris History of [place] (myocardial infarction) Plan: CONSULT/REFERRAL CARDIOLOGY, CONSULT/REFERRAL CARDIOVASCULAR SURGERY Patient under the care of Cardio- Dr. Oquendo. Reports being told he needed CABG several months ago. Now ready to discuss with CV surgery, will refer. No cp, palpitations, sob, dizziness, syncope ER--> cp, shortness of breath, dizziness, syncope, palpitations, n/v, diaphoresis. Essential hypertension Plan: CONSULT/REFERRAL CARDIOLOGY Under the care of cardio, needs updated referral. BP well controlled, < 130/ 80. Continue regimen as directed with cardio Watch blood pressure: check at least twice weekly. Educated on the following at home care: Low salt Low caffeine diet Low alcohol Avoid tobacco products. Heart Healthy Exercise: total of 150 minutes of cardio: walking,swimming, hiking , biking every week. Heart healthy diet: low fat/carb/sugar diet; increase lean meat-chicken, turkey , fish; increase vegetables/fruits ( still be careful because elevated sugar level) ER--> worsening condition; cp, shortness of breath, dizziness, syncope, palpitations, n/v, diaphoresis. History of CVA (cerebrovascular accident) Plan: CONSULT/REFERRAL CARDIOLOGY, CONSULT/REFERRAL NEUROLOGY Seizures Plan: CONSULT/REFERRAL NEUROLOGY Patient reports being managed/on keppra therapy by cardio. Would like to transition to neuro regarding. Diabetic polyneuropathy associated with type 2 diabetes mellitus Plan: CONSULT/REFERRAL NEUROLOGY Also reffering to endo for DM management, recommend follow-up. Patient also requesting to see neuro, will refer. Type 2 diabetes mellitus with retinopathy of both eyes, with long-term current use of insulin, macular edema presence unspecified, unspecified retinopathy severity Plan: CONSULT/REFERRAL ENDOCRINOLOGY Preferred Location: [facility], CONSULT/REFERRAL OPHTHALMOLOGY Recommend checking glucose BID before meals, keeping log Recommend Heart healthy diet: low fat/carb/sugar diet; increase lean meat- chicken, turkey, fish; increase vegetables/fruits ( still be careful because elevated sugar level) Recommend Heart Healthy Exercise: total of 150 minutes of cardio: walking, swimming, hiking, biking every week. ER--> worsening condition; cp, shortness of breath, dizziness, syncope, palpitations, n/v, diaphoresis. CKD (chronic kidney disease), stage III Plan: CONSULT/REFERRAL NEPHROLOGY Avoid nsaids Maintain water intake Obesity (BMI 30.0-34.9) Plan: Nutritional/Exercise Counseling and Education: - Counseled on diet, exercise, weight control and goals Counseled on healthy lifestyle habits in great detail including: -Portion control -My plate model with fruits/vegetables on half of your plate -Monitoring caloric intake via my fitness pal shashi: goal [id number] warren daily for women, 2161-9230 calfor men. -Recommend eating 3 well balanced, small/portion controlled meals. -Recommend avoiding meal skipping. -Recommend avoiding sodas -Recommend avoiding fast food -Recommend increasing water: min 64 oz daily -Recommend Heart healthy diet: low fat/carb/sugar diet; increase lean meat- chicken, turkey, fish; increase vegetables/fruits ( still be careful because elevated sugar level) -Recommend Heart Healthy Exercise: total of 150 minutes of cardio: walking, swimming, hiking, biking every week. Need for qlbrkzilou-cooyrkd-ojqyejssr (Tdap) vaccine Plan: TDAP VACCINE, >11 YRS, IM May experience low grade fever, localized swelling/pain at injection site. ER--> severe reaction, difficulty breathing, shortness of breath, weakness, numbness, high fever. Tobacco use disorder Encounter for smoking cessation counseling Plan: Patient is not yet interested in quitting. Counseled on the importance including risk reduction/prevention. Educated on both otc options and prescribed regimens including use, side effects and ER precautions. Patient reports understanding all options and elects to consider otc options at this time. Pt ed/precautions given in detail regarding conditions/medicaitons. Er precautions given. Pt reportsunderstanding and agrees. rtc as needed Plan of care, desired health behaviors, goals, Ddx, & any prescribed or OTC medications discussed with patient. Education resources & self management tools provided and reviewed with AVS. Patient/guardian/family verbalized understanding & agrees to plan of care. Barriers to care: NONE Ability to manage care: Good This visit did not involve counseling and coordination that comprised more than 50% of the visit time.Electronically signed by Maria E Ornelas PA at 2019 9:51 AM CSTdocumented in this encounter Plan of Treatment Health Maintenance Due Date Last Done Comments PNEUMOCOCCAL 0-64 YEARS 07/30/1973 COMBINED SERIES (1 of 1 - PPSV23) LDL-C 07/30/1977 URINE MICROALBUMIN 07/30/1977 DTaP,Tdap,and Td Vaccines 07/30/1978 (1 - Tdap) FOOT EXAM 07/30/1985 HgA1C 12/23/2013 06/25/2013 COLONOSCOPY 07/30/2017 Zoster Recombinant Vaccine 07/30/2017 (SHINGRIX) (1 of 2) EYE EXAM 02/27/2020 02/26/2019 CREATININE (SERUM) 05/14/2020 05/14/2019, 07/10/2017, 06/07/2015, Additional history exists INFLUENZA VACCINE (#1) 2020 Postponed from 12/27/2018 (Refused) documented as of this encounter Procedures Procedure Name Priority Date/Time Associated Diagnosis Comments TDAP VACCINE, >11 YRS, Routine 05/26/2019 8:57 AM 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 muunpjmuro-rjtdbyw-fflt ussis (Tdap) vaccine documented in this encounter Results Not on filedocumented in this encounter Visit Diagnoses Diagnosis Cirrhosis of liver without ascites, unspecified hepatic cirrhosis type - Primary Encounter for screening colonoscopy Special screening for malignant neoplasms, colon Coronary artery disease involving [place] coronary artery of [place] heart without angina pectoris History of [place] (myocardial infarction) Old myocardial infarction Essential hypertension Unspecified essential hypertension History of CVA (cerebrovascular accident) Transient ischemic attack (TIA), and cerebral infarction without residual deficits Seizures Other convulsions Diabetic polyneuropathy associated with type 2 diabetes mellitus Type 2 diabetes mellitus with retinopathy of both eyes, with long-term current use of insulin, macular edema presence unspecified, unspecified retinopathy severity CKD (chronic kidney disease), stage III Chronic kidney disease, Stage III (moderate) Obesity (BMI 30.0-34.9) Obesity, unspecified Need for vnsacmymwl-bujskoo-sopyjwhrq (Tdap) vaccine Need for prophylactic vaccination with combined axorixcraz-rbbsjav-naqkfgzvi ( DTP) vaccine Tobacco use disorder Encounter for smoking cessation counseling Counseling on substance use and abuse documented in this encounter Insurance Payer Benefit Plan / Subscriber ID Effective Dates Phone Address Type Group BCBS OF HIM BCBS BLUE [id number] 2019-Mello [phone] [address] [facility] [id number] [place] [address] documented as of this encounter
--- OUTSIDE RECORDS SUMMARY | 2019-08-01 20:00 | XMS REPORT | Summary of Care ---
:[address] [facility] Address [address] [place] [id number] Care Team Providers Name Role Phone Maria E Ornelas Primary Care Provider Reason for Visit Reason Comments Assessment Encounter Details Date Type Department Care Team Description 06/03/2019 Telephone [facility] Family Medicine Maria E Ornelas PA Assessment - [address] [place] [address] [place] [address] Allergies Active Allergy Reactions Severity Noted Date Comments Morphine Hives, Itching 06/25/2013 Hydrocodone-Acetaminophen Hives, Itching 06/25/2013 documented as of this encounter (statuses as of 06/03/2019) Medications Medication Sig Dispensed Refills Start Date End Date Status aspirin 325 mg tablet Take 325 mg by 0 Active mouth daily. TRAMADOL 50 mg tablet TAKE ONE TABLET 120 tablet 0 08/23/2016 Active BY MOUTH EVERY 6 HOURS NEEDED FOR PAIN (SCALE 4-6) CITALOPRAM 20 mg tablet TAKE 1 TABLET BY 30 tablet 3 12/04/2016 Active MOUTH EVERY DAY. clopidogrel 75 mg TAKE 1 TABLET BY 30 tablet 2 02/11/2017 Active tablet MOUTH EVERY DAY. ATENOLOL 50 mg tablet TAKE 1 TABLET BY 60 tablet 0 04/03/2017 Active MOUTH TWICE A DAY. proMETHazine 25 mg Take 1 tablet by 20 tablet 0 05/14/2019 Active tabletIndications: mouth every 6 Vomiting, (six) hours as intractability of needed for vomiting not specified, Nausea and presence of nausea not Vomiting (N/V). specified, unspecified vomiting type levETIRAcetam 250 mg Take 250 mg by 0 Active tablet mouth 2 (two) times daily. insulin NPH hum/reg inject 80 Units 0 Active insulin hm (NOVOLIN under the skin 2 70/30 SC) (two) times daily. spironolactone 25 mg Take 25 mg by 0 Active tablet mouth daily. lisinopril 10 mg tablet Take 10 mg by 0 Active mouth daily. furosemide 40 mg tablet Take 40 mg by 0 Active mouth 2 (two) times daily. simvastatin 40 mg Take 40 mg by 0 Active tablet mouth at bedtime. acetaZOLAMIDE 500 mg Take 500 mg by 0 Active capsule mouth 2 (two) times daily. gabapentin 300 mg Take 300 mg by 0 Active capsuleIndications: mouth. take 3 capsules BID Indications: take 3 capsules BID brinzolamide (AZOPT) 1 1 Drop 3 (three) 0 Active % ophthalmic suspension times daily. drops Brimonidine-Timolol Place in each 0 Active (COMBIGAN) 0.2-0.5 % eye. ophthalmic drops travoprost (TRAVATAN Z) 1 Drop at 0 Active 0.004 % ophthalmic bedtime. solution documented as of this encounter (statuses as of 06/03/2019) Active Problems Problem Noted Date Seizures 05/26/2019 History of CVA (cerebrovascular accident) 05/26/2019 History of [place] (myocardial infarction) 05/26/2019 Encounter for screening colonoscopy 05/26/2019 Coronary artery disease involving [place] coronary artery of [place] heart 05/26 without angina pectoris Cirrhosis of [...] as of this encounter (statuses as of 06/03/2019) Immunizations Name Administration Dates Next Due Tdap 05/26/2019 documented as of this encounter Social History Tobacco Use Types Packs/Day Years Used Date Current Every Day Smoker Cigarettes 0.33 7 Smokeless Tobacco: Never Used Alcohol Use Drinks/Week oz/Week Comments Not Currently [...] of this encounter Last Filed Vital Signs Not on filedocumented in this encounter Plan of Treatment Date Type Specialty Care Team Description 06/08/2019 Office Visit Thoracic Surgery Faculty-Jonathan, Cardiovascular Health Maintenance Due Date Last Done Comments PNEUMOCOCCAL 0-64 YEARS 07/30/1973 COMBINED SERIES (1 of 1 - PPSV23) LDL-C 07/30/1977 URINE MICROALBUMIN 07/30/1977 FOOT EXAM 07/30/1985 HgA1C 12/23/2013 06/25/2013 COLONOSCOPY 07/30/2017 Zoster Recombinant Vaccine 07/30/2017 (SHINGRIX) (1 of 2) EYE EXAM 02/27/2020 02/26/2019 CREATININE (SERUM) 05/14/2020 05/14/2019, 07/10/2017, 06/07/2015, Additional history exists INFLUENZA VACCINE (#1) 2020 Postponed from 12/27/2018 (Refused) DTaP,Tdap,and Td Vaccines 05/26/2029 05/26/2019 (2 - Td) documented as of this encounter Results Not on filedocumented in this encounter Insurance Payer Benefit Plan / Subscriber ID Effective Dates Phone Address Type Group BCBS OF HIM BCBS BLUE [id number] 2019-Mello [phone] [address] [facility] t [id number] [place] [address] documented as of this encounter
--- OUTSIDE RECORDS SUMMARY | 2019-08-01 20:00 | XMS REPORT | Summary of Care ---
:1965 Author Organization [facility] Address [address] [place] [address] Care Team Providers Name Role Phone Maria E Ornelas Primary Care Provider Encounter Details Date Type Department Care Team Description 05/26/2019 Orders Only [facility] Doctor Unassigned, No [address] [facility] [place] [address] [address] [place] [address] Allergies Active Allergy Reactions Severity Noted Date Comments Morphine Hives, Itching 06/25/2013 Hydrocodone-Acetaminophen Hives, Itching 06/25/2013 documented as of this encounter (statuses as of 05/26/2019) Medications Medication Sig Dispensed Refills Start Date End Date Status aspirin 325 mg tablet Take 325 mg by 0 Active mouth daily. tamsulosin (FLOMAX) 0.4 Take 1 capsule 30 capsule 5 02/19/2016 Active mg 24 hr capsule by mouth every evening. simvastatin (ZOCOR) 80 Take 1 tablet by 30 tablet 5 02/19/2016 Active mg tablet mouth at bedtime. Saxagliptin (ONGLYZA) 5 Take 1 tablet by 30 tablet 5 02/19/2016 Active mg tablet mouth every morning. LORazepam (ATIVAN) 1 mg Take 1 tablet by 90 tablet 3 02/19/2016 Active tablet mouth 3 (three) times daily as needed for Anxiety or Agitation. TRAMADOL 50 mg tablet TAKE ONE TABLET 120 tablet 0 08/23/2016 Active BY MOUTH EVERY 6 HOURS NEEDED FOR PAIN (SCALE 4-6) CITALOPRAM 20 mg tablet TAKE 1 TABLET BY 30 tablet 3 12/04/2016 Active MOUTH EVERY DAY. lisinopril 20 mg tablet TAKE 1 TABLET BY 30 tablet 2 02/11/2017 Active MOUTH EVERY DAY. gabapentin 600 mg TAKE 1 TABLET BY 120 tablet 2 02/11/2017 Active tablet MOUTH FOUR TIMES A DAY clopidogrel 75 mg TAKE 1 TABLET BY 30 tablet 2 02/11/2017 Active tablet MOUTH EVERY DAY. glyBURIDE-metformin TAKE 2 TABLETS 120 tablet 2 02/11/2017 Active 5-500 mg tablet BY MOUTH TWICE A DAY ATENOLOL 50 mg tablet TAKE 1 TABLET BY 60 tablet 0 04/03/2017 Active MOUTH TWICE A DAY. proMETHazine 25 mg Take 1 tablet by 20 tablet 0 05/14/2019 Active tabletIndications: mouth every 6 Vomiting, (six) hours as intractability of needed for vomiting not specified, Nausea and presence of nausea not Vomiting (N/V). specified, unspecified vomiting type documented as of this encounter (statuses as of 05/26/2019) Active Problems Problem Noted Date Diabetes mellitus type II, controlled, with no complications 02/19/2016 Essential hypertension 02/19/2016 Mixed hyperlipidemia 02/19/2016 Left knee pain 07/06/2015 documented as of this encounter (statuses as of 05/26/2019) Social History Tobacco Use Types Packs/Day Years Used Date Current Every Day Smoker Smokeless Tobacco: Never Used Comments: also Vape Alcohol Use Drinks/Week oz/Week Comments Yes 0 Standard drinks or equivalent 0.0 Sex Assigned at Date Recorded Not on file Job Start Date Occupation Industry Not on file Not on file Not on file Travel History Travel Start Travel End No recent travel history available. documented as of this encounter Last Filed Vital Signs Not on filedocumented in this encounter Plan of Treatment Health Maintenance Due Date Last Done Comments PNEUMOCOCCAL 0-64 YEARS COMBINED 07/30/1973 SERIES (1 of 1 - PPSV23) EYE EXAM 07/30/1977 LDL-C 07/30/1977 URINE MICROALBUMIN 07/30/1977 DTaP,Tdap,and Td Vaccines (1 - 07/30/1978 Tdap) FOOT EXAM 07/30/1985 HgA1C 12/23/2013 06/25/2013 COLONOSCOPY 07/30/2017 Zoster Recombinant Vaccine 07/30/2017 (SHINGRIX) (1 of 2) INFLUENZA VACCINE (#1) 2018 CREATININE (SERUM) 05/14/2020 05/14/2019, 07/10/2017, 06/07/2015, Additional history exists documented as of this encounter Procedures Procedure Name Priority Date/Time Associated Diagnosis Comments CONSENT/REFUSAL FOR Routine 05/26/2019 7:33 AM DIAGNOSIS AND TREATMENT RECEPTIONIST SECRETARY ASSIGNMENT OF BENEFITS Routine 05/26/2019 7:33 AM RECEPTIONIST SECRETARY documented in this encounter Results Not on filedocumented in this encounter Insurance Payer Benefit Plan / Subscriber ID Effective Dates Phone Address Type Group BCBS OF HIM BCBS BLUE [id number] 2019-Mello [phone] [facility] t [id number] [place] [address] documented as of this encounter
--- OUTSIDE RECORDS SUMMARY | 2019-08-01 20:00 | XMS REPORT | Summary of Care ---
:1965 Author Organization [facility] Address [address] [place] [address] Care Team Providers Name Role Phone Usha Oquendo MD Primary Care Provider Reason for Visit Reason Comments Notification Encounter Details Date Type Department Care Team Description 05/14/2019 Telephone [facility] Family Medicine Maria E Ornelas PA Notification - [address] [place] [address] [place] [address] Allergies Active Allergy Reactions Severity Noted Date Comments Morphine Hives, Itching 06/25/2013 Hydrocodone-Acetaminophen Hives, Itching 06/25/2013 documented as of this encounter (statuses as of 05/14/2019) Medications Medication Sig Dispensed Refills Start Date End Date Status aspirin 325 mg tablet Take 325 mg by 0 Active mouth daily. tamsulosin (FLOMAX) Take 1 capsule 30 capsule 5 02/19/2016 Active 0.4 mg 24 hr capsule by mouth every evening. simvastatin (ZOCOR) 80 Take 1 tablet 30 tablet 5 02/19/2016 Active mg tablet by mouth at bedtime. Saxagliptin (ONGLYZA) Take 1 tablet 30 tablet 5 02/19/2016 Active 5 mg tablet by mouth every morning. LORazepam (ATIVAN) 1 Take 1 tablet 90 tablet 3 02/19/2016 Active mg tablet by mouth 3 (three) times daily as needed for Anxiety or Agitation. TRAMADOL 50 mg tablet TAKE ONE TABLET 120 tablet 0 08/23/2016 Active BY MOUTH EVERY 6 HOURS NEEDED FOR PAIN (SCALE 4-6) CITALOPRAM 20 mg TAKE 1 TABLET 30 tablet 3 12/04/2016 Active tablet BY MOUTH EVERY DAY. lisinopril 20 mg TAKE 1 TABLET 30 tablet 2 02/11/2017 Active tablet BY MOUTH EVERY DAY. gabapentin 600 mg TAKE 1 TABLET 120 tablet 2 02/11/2017 Active tablet BY MOUTH FOUR TIMES A DAY clopidogrel 75 mg TAKE 1 TABLET 30 tablet 2 02/11/2017 Active tablet BY MOUTH EVERY DAY. glyBURIDE-metformin TAKE 2 TABLETS 120 tablet 2 02/11/2017 Active 5-500 mg tablet BY MOUTH TWICE A DAY ATENOLOL 50 mg tablet TAKE 1 TABLET 60 tablet 0 04/03/2017 Active BY MOUTH TWICE A DAY. proMETHazine 25 mg Take 1 tablet 20 tablet 0 05/14/2019 Active tabletIndications: by mouth every Vomiting, 6 (six) hours intractability of as needed for vomiting not Nausea and specified, presence of Vomiting (N/V). nausea not specified, unspecified vomiting type predniSONE 20 mg Take 1 tablet 10 tablet 0 05/14/2019 05/24/2019 Active tabletIndications: by mouth daily Vomiting, for 10 days. intractability of vomiting not specified, presence of nausea not specified, unspecified vomiting type documented as of this encounter (statuses as of 05/14/2019) Active Problems Problem Noted Date Diabetes mellitus type II, controlled, with no complications 02/19/2016 Essential hypertension 02/19/2016 Mixed hyperlipidemia 02/19/2016 Left knee pain 07/06/2015 documented as of this encounter (statuses as of 05/14/2019) Social History Tobacco Use Types Packs/Day Years [...] Treatment Date Type Specialty Care Team Description 05/26/2019 Office Visit Family Medicine Maria E Ornelas, JAN[facility] [address] [place] [id number] Health Maintenance Due Date Last Done Comments PNEUMOCOCCAL 0-64 YEARS COMBINED 07/30/1973 SERIES (1 of 1 - PPSV23) EYE EXAM 07/30/1977 LDL-C 07/30/1977 URINE MICROALBUMIN 07/30/1977 DTaP,Tdap,and Td Vaccines (1 - 07/30/1978 Tdap) FOOT EXAM 07/30/1985 HgA1C 12/23/2013 06/25/2013 COLONOSCOPY 07/30/2017 Zoster Recombinant Vaccine 07/30/2017 (SHINGRIX) (1 of 2) CREATININE (SERUM) 07/10/2018 07/10/2017, 06/07/2015, 06/07/2015, Additional history exists INFLUENZA VACCINE (#1) 2018 documented as of this encounter Results Not on filedocumented in this encounter Insurance Payer Benefit Plan / Subscriber ID Effective Dates Phone Address Type Group BCBS OF HIM BCBS BLUE [id number] 2019-Mello [phone] [address] [employer] [id number] [place] [address] documented as of this encounter
--- OUTSIDE RECORDS SUMMARY | 2019-08-01 20:00 | XMS REPORT | Summary of Care ---
:1965 Author Organization [facility] Address [address] [place] [id number] Care Team Providers Name Role Phone Maria [...] Procedures CONSULT/REFERRAL OPHTHALMOLOGY JANET Johnson a Specific [facility] [address] [place] [phone] (Routine) Status Reason Specialty Diagnoses / Procedures Referred By Referred To Contact Contact New Request Neurology Diagnoses History of CVA (cerebrovascular accident) Diabetic polyneuropathy associated with type 2 diabetes mellitus Seizures Maria E Ornelas, Procedures CONSULT/REFERRAL NEUROLOGY [address] [place] [phone] (Routine) Status Reason Specialty Diagnoses / Procedures Referred By Referred To Contact Contact New Request Gastroenterology Diagnoses Cirrhosis of liver without ascites, unspecified hepatic cirrhosis type Encounter for screening colonoscopy Maria E Ornelas Procedures CONSULT/REFERRAL GASTROENTEROLOGY JANET Carreno [address] [place] [address] [address] [place] [phone] (Routine) Status Reason Specialty Diagnoses / Referred By Referred To Procedures Contact Contact New Request Endocrinology Diagnoses Type 2 diabetes mellitus with retinopathy of both eyes, with long-term current use of insulin, macular edema presence unspecified, unspecified retinopathy severity Maria E Ornelas Diabetes & Procedures CONSULT/REFERRAL ENDOCRINOLOGY Preferred Location: [facility] JANET Carreno Metabolism [address] [place] [address] [place] [phone] (Routine) Status Reason Specialty Diagnoses / Procedures Referred By Referred To Contact Contact New Request Surgery Diagnoses Coronary artery disease involving asa'carsarmiut coronary artery of asa'carsarmiut heart without angina pectoris History of SC (myocardial infarction) Maria E Ornelas, Procedures CONSULT/REFERRAL CARDIOVASCULAR SURGERY [address] [place] [address] (Routine) Status Reason Specialty Diagnoses / Referred By Referred To Procedures Contact Contact New Request Patient is Cardiology Diagnoses Coronary artery disease involving asa'carsarmiut coronary artery of asa'carsarmiut heart without angina pectoris History of CVA (cerebrovascular accident) History of SC (myocardial infarction) Essential hypertension Maria E Ornelas Established with Procedures CONSULT/REFERRAL CARDIOLOGY JANET Carreno a Specific [address] [place] [address] Provider ELDA WAGONER [phone] (Routine) Status Reason Specialty Diagnoses / Referred By Referred To Procedures Contact Contact New Request Location Nephrology Diagnoses CKD (chronic kidney disease), stage III Maria E Ornelas Preference Procedures CONSULT/REFERRAL NEPHROLOGY JANET Carreno [address] [place] [address] [place] [address] Reason for Visit Reason Comments Establish Care Referral/consult Encounter Details Date Type Department Care Team Description 05/26/2019 Office Visit [facility] Family Maria E Ornelas, Cirrhosis of liver without ascites, unspecified hepatic cirrhosis type (Primary Dx); [facility] Kathleen GONZALES Encounter for screening colonoscopy; [address] [place] [address] Coronary artery disease involving asa'carsarmiut coronary artery of asa'carsarmiut heart without angina pectoris; Drive [place], [place] History of SC (myocardial infarction); [place] [address] Essential hypertension; [phone] History of CVA (cerebrovascular accident); [phone] Seizures; Diabetic polyneuropathy associated with type 2 diabetes mellitus; Type 2 diabetes mellitus with retinopathy of both eyes, with long-term current use of insulin, macular edema presence unspecified, unspecified retinopathy severity; CKD (chronic kidney disease), stage III; Obesity (BMI 30.0-34.9); Need for ynghjvbzna-kjygtqg-dxsvfyqen (Tdap) vaccine; Tobacco use disorder; Encounter for [...] of CVA (cerebrovascular accident) 05/26/2019 History of SC (myocardial infarction) 05/26/2019 Encounter for screening colonoscopy 05/26/2019 Coronary artery disease involving asa'carsarmiut coronary artery of asa'carsarmiut heart 05/26 without angina pectoris Cirrhosis of [...] Comments Blood Pressure 110/77 05/26/2019 7:42 AM FITTING ROOM SUPERVISOR Pulse 86 05/26/2019 7:42 AM FITTING ROOM SUPERVISOR Temperature 36.7 C (98 F) 05/26/2019 7:42 AM FITTING ROOM SUPERVISOR Respiratory Rate - - Oxygen Saturation 98% 05/26/2019 7:42 AM FITTING ROOM SUPERVISOR Inhaled Oxygen Concentration - - Weight 92.5 kg (204 lb) 05/26/2019 7:42 AM FITTING ROOM SUPERVISOR Height 170.2 cm (5' 7") 05/26/2019 7:42 AM FITTING ROOM SUPERVISOR Body Mass Index 31.95 05/26/2019 7:42 AM FITTING ROOM SUPERVISOR documented in this encounter Patient Instructions Patient InstructionsMaria E Ornelas PA - 05/26/2019 7:20 AM FITTING ROOM SUPERVISOR Understanding USDA MyPlate The USDA (U.S. Department [...] get this muchfrom the food you eat. [employer] last reviewed this educational content on 11/26/201619996127-0740 [employer]. [address] [place] [address], [place] [address]. All rights reserved. This information is not [...] take your nitroglycerin, and call your doctor. [employer] last reviewed this educational content on 09/28/201519998400-1037 [employer]. [address] [place] [address]. All rights reserved. This information is not intended as a substitute for professional medical care. Always follow your healthcare professional's instructions. Diphtheria, Tetanus, Acellular Pertussis, Poliovirus Vaccine Brand Names: Kinrix, Quadracel What is this medicine? DIPHTHERIA TOXOID, TETANUS TOXOID, ACELLULAR PERTUSSIS VACCINE, DTaP; INACTIVATED POLIOVIRUS VACCINE, IPV (dif THEER ee TOK soid, TET n us TOK soid , ey LORAINE yuh ler per [facility] [place] SEEN, DTaP; in ak marii isaac sommer [facility] [place] SEEN, IPV ) is used to help prevent diphtheria, tetanus, pertussis, and polio infections. How should I use this medicine? This vaccine is for injection into a muscle. It is given by a health director of managed care. A copy of Vaccine Information Statements will be given before each vaccination. Read this sheet carefully each time. The sheet may change frequently. Talk to your shoe polisher regarding the use of this medicine in children. While this drug may be prescribed for children as young as 4 years for selected conditions, precautions do apply. What side effects may I notice from receiving this medicine? Side effects that you should report to your doctor or health director of managed care as soon as possible: allergic reactions like skin rash, itching or hives, swelling of the face, lips, or tongue breathing problems fever over 103 degrees F inconsolable crying for 3 hours or more seizures unusually weak or tired Side effects that usually do not require medical attention (report to your doctor or health director of managed care if they continue or are bothersome): bruising, [...] your dose. Call your doctor or health director of managed care if you are unable to keep an [...] this medicine? Contact your doctor or health director of managed care and get emergency medical care if any [...] find a support program: Free national quitline 222-SATK-ICL (565-305-0748) [facility] quit-smoking programs [employer] 065-179-3040 [employer] 847-667-4487 Support at home is important too. Family and friends can offer praise and reassurance. If the smokerin your life finds it hard to quit, encourage them to keep trying. Try jxjx-rbg-ywhfgxc medicine Nicotine replacement therapymay make iteasier to [...] "Clearing the Air" from the National Cancer [place] at smokefree.gov/ sites/default/files/pdf/qpyaaedj-kac-hfb-accessible.pdf. [employer] last reviewed this educational content on [employer]. [address] [place] [address]. All rights reserved. This information is not intended as a substitute for professional medical care. Always follow your healthcare professional's instructions. ING ROOM SUPERVISOR documented in this encounter Progress Notes Maria [...] therapy, tramadol prn. GI- Cirrhosis. Dx at [facility]. Completed biopsy in 2002 in [place]. Reports hx of hepatitis A orB, unknown exact dx. Cardiothoracic surgery- was told he needed CABG due to CAD but patient did not complete due to lack of insurance. He is ready to be referred to discuss. No cp , palpitations, sob, dizziness, syncope. Cardio- Dr. Oquendo. Manages HTN, CAD/SC, hx of CVA Endo- requesting referral to [facility] Endo. Was on triple agent oral therapy but switched to 70/30. Ophtalmology- Under the care of Dr. John in [place]. SANTY 02/2019. DM retinopathy Requesting TDAP: New [...] file Gets together: Not on file Attends latter day service: Not on file Active member of [...] received new insurance,would like to begin seeing [facility], will refer. Avoid etoh Avoid nsaids, tylenol Encounter for screening colonoscopy Plan: CONSULT/REFERRAL GASTROENTEROLOGY Due for screening colonoscopy, will refer to [facility] GI Coronary artery disease involving asa'carsarmiut coronary artery of asa'carsarmiut heart without angina pectoris History of SC (myocardial infarction) Plan: CONSULT/REFERRAL CARDIOLOGY, CONSULT/REFERRAL CARDIOVASCULAR [...] retinopathy severity Plan: CONSULT/REFERRAL ENDOCRINOLOGY Preferred Location: [facility], CONSULT/REFERRAL OPHTHALMOLOGY Recommend checking glucose BID before [...] intake via my fitness pal shashi: goal [phone] warren daily for women, [phone] calfor men. -Recommend eating 3 well balanced, [...] swimming, hiking, biking every week. Need for irymthbljq-jbhysor-kpnyjhijx (Tdap) vaccine Plan: TDAP VACCINE, >11 YRS, [...] Routine 05/26/2019 8:57 AM Need for IM FITTING ROOM SUPERVISOR nakixsenuv-sclbgbq-xnsz ussis (Tdap) vaccine documented in this encounter Results Not on filedocumented in this encounter Visit Diagnoses Diagnosis Cirrhosis of liver without ascites, unspecified hepatic cirrhosis type - Primary Encounter for screening colonoscopy Special screening for malignant neoplasms, colon Coronary artery disease involving asa'carsarmiut coronary artery of asa'carsarmiut heart without angina pectoris History of SC (myocardial infarction) Old myocardial infarction Essential hypertension [...] Obesity (BMI 30.0-34.9) Obesity, unspecified Need for qlvbtgdxkg-kmfynbm-hplhuhxas (Tdap) vaccine Need for prophylactic vaccination with combined outpwfazvt-amlyswv-ezysbjgwz ( DTP) vaccine Tobacco use disorder Encounter for smoking cessation counseling Counseling on substance use and abuse documented in this encounter Insurance Payer Benefit Plan / Subscriber ID Effective Dates Phone Address Type Group BCBS OF HIM BCBS BLUE [id number] 2019-Mello [phone] [address] [facility] t [phone] [place] [address] documented as of this encounter
--- OUTSIDE RECORDS SUMMARY | 2019-08-01 20:00 | XMS REPORT | Summary of Care ---
:1965 Author Organization [facility] Address [address] [place] [address] Care Team Providers Name Role Phone Usha Oquendo MD Primary Care Provider Reason for Visit Reason Comments Vomiting Hypertension Auth/Cert Status Reason Specialty Diagnoses / Referred By Referred To Procedures Contact Contact Emergency Medicine Ed-Emergency Dept [address] [place] [phone] Encounter Details Date Type Department Care Team Description 05/14/2019 Emergency [facility] Billy Do Vomiting, intractability of vomiting not specified, presence of nausea not specified, unspecified vomiting type (Primary Dx); Department MD Vaibhav Polyneuropathy associated with underlying disease [address] [place] [address] [id number] [place] [address] [id number] Allergies Active Allergy Reactions Severity Noted Date [...] Sign Reading Time Taken Comments Blood Pressure 115/79 05/14/2019 6:54 AM AIRCRAFT MAINTENANCE INSTRUCTOR Pulse 71 05/14/2019 6:54 AM AIRCRAFT MAINTENANCE INSTRUCTOR Temperature 36.8 C (98.2 F) 05/14/2019 4:12 AM AIRCRAFT MAINTENANCE INSTRUCTOR Respiratory Rate 17 05/14/2019 6:54 AM AIRCRAFT MAINTENANCE INSTRUCTOR Oxygen Saturation 95% 05/14/2019 6:54 AM AIRCRAFT MAINTENANCE INSTRUCTOR Inhaled Oxygen Concentration - - Weight 97.5 kg (214 lb 15.2 oz) 05/14/2019 1:49 AM AIRCRAFT MAINTENANCE INSTRUCTOR Height - - Body Mass Index 33.67 07/06/2015 10:15 AM AIRCRAFT MAINTENANCE INSTRUCTOR documented in this encounter Discharge Instructions Billy Lin MD - 05/14/2019DIAGNOSIS 1. NAUSEA WITH VOMITING 2. PERIPHERAL NEUROPATHY 3. HISTORY OF DIABETES NO LIFE-THREATENING FINDINGS ON TODAY'S EXAM. PROCEDURES IN THE ER TODAY: NONE MEDICATIONS ADMINISTERED IN THE ER TODAY: NORMAL SALINE IV FLUID FENTANYL PHENERGAN REGULAR INSULIN, 6 UNITS YOUR PRESCRIPTIONS AND [id number] MEDICATION RECOMMENDATIONS: RECOMMEND PHENERGAN PRESCRIBED FOR NAUSEA RECOMMEND PREDNISONE PRESCRIBED UNTIL ALL GONE. MAY NEED TO ADJUST YOUR INSULIN DOSING WHILE ON PREDNISONE, THIS CAN INCREASE YOUR BLOOD SUGAR LEVELS. CONTINUE YOUR HOME MEDICATIONS PRESCRIBED. SPECIAL CARE INSTRUCTIONS: NONE FOLLOW-UP RECOMMENDATIONS: RECOMMEND FOLLOW-UP WITH A PRIMARY CARE PROVIDER IN A WEEK, ESPECIALLY IF NO IMPROVEMENT IN SYMPTOMS. TO FOLLOW-UP WITHIN THE [facility], TRY THESE OPTIONS (CLINIC APPOINTMENTS AVAILABLE ON [id number] BASIS): 1. SCHEDULE AN APPOINTMENT ONLINE AT [facility] 2. OR CALL THE [facility]ESS CENTER AT OR 3. OR CALL YOUR [facility] PHYSICIAN'S OFFICE DIRECTLY IF YOU ARE ALREADY AN ESTABLISHED [facility] PATIENT. MAY FOLLOW-UP WITH A PROVIDER OF YOUR CHOICE, SUCH : 1. A PHYSICIAN OF YOUR CHOICE 2. [facility] AND [facility], . LOCATIONS IN [place] 3. [facility], [address] [facility], [place], [place]; RETURN TO ER FOR WORSENING OF SYMPTOMS. AttachmentsThe following attachments cannot be sent through Care Everywhere.Vomiting (Adult) (Welsh)Neuropathy, Peripheral (Welsh)Prednisone tablets (Welsh)Promethazine tablets (Welsh)documented in this encounter Plan of Treatment Date Type Specialty Care Team Description 05/26/2019 Office Visit Family Medicine Maria E Ornelas, JANET [address] [place] [address] [place] [address] Health Maintenance Due Date Last Done Comments [...] (#1) 2018 documented as of this encounter Procedures Procedure Name Priority Date/Time Associated Diagnosis Comments POCT GLUCOSE Routine 05/14/2019 6:32 Results for this (AUTOMATED) AM AIRCRAFT MAINTENANCE INSTRUCTOR procedure are in the results section. POCT GLUCOSE Routine 05/14/2019 5:24 Results for this (AUTOMATED) AM AIRCRAFT MAINTENANCE INSTRUCTOR procedure are in the results section. URINALYSIS STAT 05/14/2019 4:28 Vomiting, Results for this AM AIRCRAFT MAINTENANCE INSTRUCTOR intractability of procedure are in vomiting not the results specified, presence section. of nausea not specified, unspecified vomiting type ACTIVATED PARTIAL STAT 05/14/2019 4:25 Vomiting, Results for this THRMPLAS EMA AM AIRCRAFT MAINTENANCE INSTRUCTOR intractability of procedure are in vomiting not the results specified, presence section. of nausea not specified, unspecified vomiting type PROTHROMBIN TIME / STAT 05/14/2019 4:25 Vomiting, Results for this INR AM AIRCRAFT MAINTENANCE INSTRUCTOR intractability of procedure are in vomiting not the results specified, presence section. of nausea not specified, unspecified vomiting type EKG-12 LEAD STAT 05/14/2019 3:46 AM AIRCRAFT MAINTENANCE INSTRUCTOR CBC WITH STAT 05/14/2019 2:57 Vomiting, Results for this DIFFERENTIAL AM AIRCRAFT MAINTENANCE INSTRUCTOR intractability of procedure are in vomiting not the results specified, presence section. of nausea not specified, unspecified vomiting type N-TERMINAL PRO-BNP STAT Add-On 05/14/2019 2:57 Vomiting, Results for this AM AIRCRAFT MAINTENANCE INSTRUCTOR intractability of procedure are in vomiting not the results specified, presence section. of nausea not specified, unspecified vomiting type CBC WITH STAT 05/14/2019 2:57 Vomiting, Results for this DIFFERENTIAL AM AIRCRAFT MAINTENANCE INSTRUCTOR intractability of procedure are in vomiting not the results specified, presence section. of nausea not specified, unspecified vomiting type COMP. METABOLIC STAT 05/14/2019 2:57 Vomiting, Results for this PANEL (05045) AM AIRCRAFT MAINTENANCE INSTRUCTOR intractability of procedure are in vomiting not the results specified, presence section. of nausea not specified, unspecified vomiting type TROPONIN I STAT Add-On 05/14/2019 2:57 Vomiting, Results for this AM AIRCRAFT MAINTENANCE INSTRUCTOR intractability of procedure are in vomiting not the results specified, presence section. of nausea not specified, unspecified vomiting type LIPASE STAT Add-On 05/14/2019 2:57 Vomiting, Results for this AM AIRCRAFT MAINTENANCE INSTRUCTOR intractability of procedure are in vomiting not the results specified, presence section. of nausea not specified, unspecified vomiting type documented in this encounter Results POCT GLUCOSE (AUTOMATED) (05/14/2019 6:32 AM AIRCRAFT MAINTENANCE INSTRUCTOR) POCT GLU 385 (H) 70 - 110 mg/dL [facility] Specimen Blood Performing Organization Address City/[facility] Phone Number [facility] CLIA: [id number], [address] [place], [place] [address] [phone] [facility] POCT GLUCOSE (AUTOMATED) (05/14/2019 5:24 AM AIRCRAFT MAINTENANCE INSTRUCTOR) POCT GLU 375 (H) 70 - 110 mg/dL [facility] Specimen Blood Performing Organization Address City/[facility]/Zipcode Phone Number [facility] CLIA: [id number], [address] [place] [address] [facility] Urinalysis (05/14/2019 4:28 AM AIRCRAFT MAINTENANCE INSTRUCTOR) APPEARANCE Cloudy (A) Clear [facility] COLOR Yellow Yellow [facility] PH 5.0 4.8 - 8.0 [facility] SP GRAVITY 1.025 1.003 - 1.030 [facility] GLU U QUAL 500 mg/dL (A) Normal [facility] BLOOD 1+ (A) Negative [facility] KETONES Negative Negative [facility] PROTEIN 500 mg/dL (A) Negative [facility] UROBILIN Normal Normal [facility] BILIRUBIN Negative Negative [facility] NITRITE Negative Negative [facility] LEUK KATHERINE Negative Negative [facility] RBC/HPF 8 (H) 0 - 3 HPF [facility] WBC/HPF 6 (H) 0 - 5 HPF [facility] BACTERIA Few (A) Negative [facility] MUCOUS Slight (A) Negative LPF [facility] AMORPHOUS Rare Rare HPF [facility] SQ EPITH 2 <=2 HPF [facility] HYAL CAST 14 (H) <=2 LPF [facility] Specimen Urine - URINE, CLEAN CATCH Performing Organization Address City/[facility] Phone Number [facility] CLIA: [id number], [address] [place] [address] [facility] Prothrombin Time (PT) / INR (05/14/2019 4:25 AM AIRCRAFT MAINTENANCE INSTRUCTOR) PROTIME PATIENT 10.1 10.1 - 12.6 [facility] Seconds SERVICES INR 0.9Comment: Normal [facility] INR <1.1; Warfarin SERVICES Therapeutic range 2.0 to 3.0 or 2.5 to 3.5, depending upon the indications. Specimen Blood - ARM, LEFT Performing Organization Address [facility] Phone Number [facility] CLIA: [id number], [address] [place] [address] [phone] [facility] aPTT (05/14/2019 4:25 AM AIRCRAFT MAINTENANCE INSTRUCTOR) APTT Patient 28 26 - 36 Seconds [facility] Specimen Blood - ARM, LEFT Performing Organization Address [facility]code Phone Number [facility] CLIA: [id number], [address] [place] [address] [facility] Lipase Serum (05/14/2019 2:57 AM AIRCRAFT MAINTENANCE INSTRUCTOR) LIPASE 386 (H) 0 - 220 U/L [facility] Specimen Blood - VENOUS Performing Organization Address [facility] Phone Number [facility] CLIA: [id number], [address] [place] [address] [facility] N-TERMINAL PRO-BNP (05/14/2019 2:57 AM AIRCRAFT MAINTENANCE INSTRUCTOR) Pathologist [facility] NT-proBNP 415 (H) <=125 pg/mL [facility] Specimen Blood - VENOUS Narrative Performed At Biotin has been reported to cause a negative bias, interpret [facility] results relative to patient's use of biotin. Performing Organization Address City/State/[facility]code Phone Number [facility] CLIA: [id number], [address] [place] [address] [phone] [facility] Troponin I (05/14/2019 2:57 AM AIRCRAFT MAINTENANCE INSTRUCTOR) Pathologist [facility] TROPONIN I 0.012 <=0.034 ng/mL [facility] Specimen Blood - VENOUS Narrative Performed At Equal or Less than 0.034 ng/ml---Normal [facility] Note: Cardiac troponin begins to rise 3-4 hours after the onset of ischemia. Repeat in 4-6 hours if the sample was drawn within 3-4 hours of the onset of the symptom and found normal. Between 0.035 and 0.120 ng/mL--- Borderline. Questionable myocardial injury or necrosis Note: Serial measurement may be necessary to confirm or exclude the diagnosis of myocardial injury or necrosis; Clinical correlation (symptoms, EKGs, imaging studies, and others) required; Repeat in 4-6 hours if clinically indicated. Equal or Higher than 0.121 ng/mL---Abnormal. Myocardial Injury or Necrosis Likely Biotin has been reported to cause a negative bias, interpret results relative to patient's use of biotin. Performing Organization Address City/State/[facility] Phone Number [facility] CLIA: [id number], [address] [place] [address] [phone] [facility] CBC WITH DIFFERENTIAL (05/14/2019 2:57 AM AIRCRAFT MAINTENANCE INSTRUCTOR) Pathologist [facility] WBC 6.42 4.20 - 10.70 [facility] 10*3/L SERVICES RBC 4.78 4.26 - 5.52 [facility] 10*6/L SERVICES HGB 14.3 12.2 - 16.4 [facility] g/dL SERVICES HCT 39.3 38.4 - 49.3 % [facility] MCV 82.2 81.7 - 95.6 [facility] fL SERVICES MCH 29.9 26.1 - 32.7 [facility] pg SERVICES MCHC 36.4 (H) 31.2 - 35.0 [facility] g/dL SERVICES RDW-SD 40.3 38.5 - 51.6 [facility] fL SERVICES RDW-CV 13.8 12.1 - 15.4 % [facility] PLT 191 150 - 328 [facility] 10*3/L SERVICES MPV 12.9 9.8 - 13.0 fL [facility] SERVICES IPF % 11.1 (H)Comment: 1.2 - 10.7 % [facility] Platelet count SERVICES measured by fluorescence method. NRBC/100 WBC 0.0 0.0 - 10.0 [facility] /100 WBCs SERVICES NRBC x10^3 <0.01 10*3/L [facility] GRAN MAT (NEUT) % 67.3 % [facility] IMM GRAN % 0.90 % [facility] LYMPH % 23.4 % [facility] MONO % 5.3 % [facility] EOS % 2.2 % [facility] BASO % 0.9 % [facility] GRAN MAT 4.32 1.99 - 6.95 [facility] x10^3(ANC) 10*3/uL SERVICES IMM GRAN x10^3 0.06 0.00 - 0.06 [facility] 10*3/uL SERVICES LYMPH x10^3 1.50 1.09 - 3.23 [facility] 10*3/uL SERVICES MONO x10^3 0.34 (L) 0.36 - 1.02 [facility] 10*3/uL SERVICES EOS x10^3 0.14 0.06 - 0.53 [facility] 10*3/uL SERVICES BASO x10^3 0.06 0.01 - 0.09 [facility] 10*3/uL SERVICES Specimen Blood - VENOUS Performing Organization Address City/State/Zipcode Phone Number [facility] CLIA: [id number], [address] [place] [address] [facility] COMP. METABOLIC PANEL (24498) (05/14/2019 2:57 AM AIRCRAFT MAINTENANCE INSTRUCTOR) NA 133 (L) 135 - 145 [facility] mmol/L SERVICES K 4.4Comment: 3.5 - 5.0 [facility] Slight hemolysis mmol/L SERVICES CL 101 98 - 108 [facility] mmol/L SERVICES CO2 TOTAL 21 (L) 23 - 31 [facility] mmol/L SERVICES AGAP 11 2 - 16 [facility] SERVICES BUN 30 (H)Comment: 7 - 23 mg/dL [facility] Slight hemolysis SERVICES GLUCOSE 364 (H) 70 - 110 [facility] mg/dL SERVICES CREATININE 1.97 (H) 0.60 - 1.25 [facility] mg/dL SERVICES TOTAL BILI 0.8 0.1 - 1.1 [facility] mg/dL SERVICES CALCIUM 8.7 8.6 - 10.6 [facility] mg/dL SERVICES T PROTEIN 6.9 6.3 - 8.2 [facility] g/dL SERVICES ALBUMIN 3.5 3.5 - 5.0 [facility] g/dL SERVICES ALK PHOS 149 (H)Comment: 34 - 122 U/L [facility] Slight hemolysis SERVICES ALTv 22 5 - 50 U/L [facility] SERVICES AST(SGOT) 47 (H)Comment: 13 - 40 U/L [facility] Slight hemolysis SERVICES eGFR Calculation 36.0 mL/min/1.73m2 [facility] (Non- SERVICES [place]) eGFR Calculation 43.7 mL/min/1.73m2 [facility] () SERVICES Specimen Blood - VENOUS Narrative Performed At Association of Glomerular Filtration Rate (GFR) and Staging [facility] of Kidney Disease* + + + + | GFR (mL/min/1.73 m2) | With Kidney Damage | Without Kidney Damage + + + + | >90 | Stage one | Normal + + + + | 60-89 | Stage two | Decreased GFR + + + + | 30-59 | Stage three | Stage three + + + + | 15-29 | Stage four | Stage four + + + + | <15 (or dialysis) | Stage five | Stage five + + + + *Each stage assumes the associated GFR level has been in effect for at least three months. Stages 1 to 5, with or without kidney disease, indicate chronic kidney disease. Notes: Determination of stages one and two (with eGFR >59mL/min/1.73 m2) requires estimation of kidney damage for at least three months as defined by structural or functional abnormalities of the kidney, manifested by either: Pathological abnormalities or Markers of kidney damage (including abnormalities in the composition of the blood or urine or abnormalities in imaging tests). Performing Organization Address City/State/Zipcode Phone Number [facility] CLIA: [id number], [address] [place] [address] [facility] documented in this encounter Visit Diagnoses Diagnosis Vomiting, intractability of vomiting not specified, presence of nausea not specified, unspecified vomiting type - Primary Polyneuropathy associated with underlying disease documented in this encounter Administered Medications Medication Order MAR Action Action Date Dose Rate Site FENTanyl PF (SUBLIMAZE (PF)) Given 05/14/2019 5:28 AM AIRCRAFT MAINTENANCE INSTRUCTOR 50 mcg injection 50 mcg 50 mcg, Slow IV Push, ONCE, 1 dose, Fri05/14/19 at 0615, STAT insulin regular human (HUMULIN R) Given 05/14/2019 5:31 AM AIRCRAFT MAINTENANCE INSTRUCTOR 6 Units Left Arm injection 6 Units 6 Units, Subcutaneous, ONCE, 1 dose, Fri05/14/19 at 0630, TIANNA NaCl 0.9% (NS) bolus infusion 500 New Bag 05/14/2019 5:26 AM AIRCRAFT MAINTENANCE INSTRUCTOR 500 mL 999 mL/hr mL at 999 mL/hr, 500 mL, IV Infusion, ONCE, 1 dose, Fri05/14/19 at 0515, TIANNA proMETHazine (PHENERGAN) 12.5 mg in NaCl Given 05/14/2019 5:49 AM AIRCRAFT MAINTENANCE INSTRUCTOR 12.5 mg 0.9% (NS) 50 mL piggyback 12.5 mg, IV Piggyback, ONCE, 1 dose, Fri05/14/19 at 0615, 50 mL documented in this encounter Insurance Payer Benefit Plan / Subscriber ID Effective Dates Phone Address Type Group BCBS OF HIM BCBS BLUE [id number] 2019-Presen [phone] [address] [facility] [phone] [place] [address] documented as of this encounter"
--- OUTSIDE RECORDS SUMMARY | 2019-08-01 20:01 | XMS REPORT | Summary of Care ---
:1965 Author Organization [facility] Address [address] [place] [address] Care Team Providers Name Role Phone Maria E Ornelas Primary Care Provider Reason for Visit Reason Comments Cancellation Encounter Details Date Type Department Care Team Description 06/14/2019 Telephone [facility] and Yvette Rich FNP Cancellation Clinics [address] [place] [phone] [place] [phone] Allergies Active Allergy Reactions Severity Noted Date Comments Morphine Hives, Itching 06/25/2013 Hydrocodone-Acetaminophen Hives, Itching 06/25/2013 documented as of this encounter (statuses as of 06/14/2019) Medications Medication Sig Dispensed Refills Start Date [...] as of this encounter (statuses as of 06/14/2019) Active Problems Problem Noted Date Seizures 05/26/2019 History of CVA (cerebrovascular accident) 05/26/2019 History of [place] (myocardial infarction) 05/26/2019 Encounter for screening colonoscopy 05/26/2019 Coronary artery disease involving [place] coronary artery of [place] heart 05/26 without angina pectoris Cirrhosis of [...] as of this encounter (statuses as of 06/14/2019) Immunizations Name Administration Dates Next Due Tdap [...] Treatment Date Type Specialty Care Team Description 07/02/2019 Office Visit Neurology Urban Sosa MD [address] [place] [phone] Health Maintenance Due Date Last Done Comments [...] Type Group BCBS OF HIM BCBS BLUE [id number] 2019-Mello [phone] [address] [facility] [id number] [place] [address] documented as of this encounter
--- OUTSIDE RECORDS SUMMARY | 2019-08-01 20:01 | XMS REPORT | Summary of Care ---
:1965 Author Organization [facility] Address [address] [place] [address] Care Team Providers Name Role Phone Maria E Ornelas Primary Care Provider Encounter Details Date Type Department Care Team Description 06/22/2019 Patient Secure Msg ACCESS CENTER Doctor Unassigned, [address] [place] [address] [place] [address] [place] [address] [place] [address] Allergies Active Allergy Reactions Severity Noted Date Comments Morphine Hives, Itching 06/25/2013 Hydrocodone-Acetaminophen Hives, Itching 06/25/2013 documented as of this encounter (statuses as of 07/24/2019) Medications Medication Sig Dispensed Refills Start Date [...] as of this encounter (statuses as of 07/24/2019) Active Problems Problem Noted Date Seizures 05/26/2019 History of CVA (cerebrovascular accident) 05/26/2019 History of [place] (myocardial infarction) 05/26/2019 Encounter for screening colonoscopy 05/26/2019 Coronary artery disease involving [place] coronary artery of [place] heart 05/26 without angina pectoris Cirrhosis of [...] as of this encounter (statuses as of 07/24/2019) Immunizations Name Administration Dates Next Due Tdap [...] Type Group BCBS OF HIM BCBS BLUE [id number] 2019-Mello [phone] [address] HMO [facility] [place] t 7 [phone] documented as of this encounter
--- OUTSIDE RECORDS SUMMARY | 2019-08-01 20:01 | XMS REPORT | Summary of Care ---
:1965 Author Organization [facility] Address [address] [place] [address] Care Team Providers Name Role Phone Maria E Ornelas Primary Care Provider Reason for Visit Reason Comments Notification discuss open heart surgery Encounter Details Date Type Department Care Team Description 06/14/2019 Telephone [facility] [employer] Family Maria E Ornelas, Notification ( discuss Medicine - Kathleen GONZALES open heart surgery ) [facility] [address] [place] [address] DR Wang, [place] [phone] Allergies Active Allergy Reactions Severity Noted Date Comments Morphine Hives, Itching 06/25/2013 Hydrocodone-Acetaminophen Hives, Itching 06/25/2013 documented as of this encounter (statuses as of 06/15/2019) Medications Medication Sig Dispensed Refills Start Date [...] as of this encounter (statuses as of 06/15/2019) Active Problems Problem Noted Date Seizures 05/26/2019 History of CVA (cerebrovascular accident) 05/26/2019 History of [place] (myocardial infarction) 05/26/2019 Encounter for screening colonoscopy 05/26/2019 Coronary artery disease involving [place] coronary artery of [place] heart 05/26 without angina pectoris Cirrhosis of [...] as of this encounter (statuses as of 06/15/2019) Immunizations Name Administration Dates Next Due Tdap [...] 07/02/2019 Office Visit Neurology Urban Sosa MD [address] [place] [phone] Health Maintenance Due Date Last Done [...] Type Group BCBS OF HIM BCBS BLUE [id number] 2019-Mello [phone] [address] [facility] [id number] [place] [address] documented as of this encounter
[2019-08-01 21:08] LABS: Absolute Lymphocytes (CBC) 1.9 K/uL (0.7-4.9); Basophils % 0.8 % (0-1.3); Hematocrit 30.3 % (39.6-49.0); Lymphocytes % 33.5 % (15.3-44.8); MPV 10.6 fL (7.6-11.3); RBC Red Blood Cell Count 3.35 M/uL (4.33-5.43)
--- NOTE | 2019-08-01 21:24 | RAD REPORT ---
EXAM DESCRIPTION: RAD - Chest Single View - 08/01/2019 9:10 pm CLINICAL HISTORY: CHEST PAIN Chest pain. COMPARISON: Chest Single View dated 06/05/2019; Chest Single View dated 05/29/2019; Chest Pa And Lat (2 Views) dated 05/18/2019; Chest Single View dated 05/17/2019 FINDINGS: Portable technique limits examination quality. The lungs are grossly clear. The heart is normal in size. No displaced fractures.Right-sided venous c atheter its tip in the SVC. IMPRESSION: No acute intrathoracic process suspected.
[2019-08-01 21:25] LABS: Protime INR 0.96
[2019-08-01 21:34] LABS: BUN Blood Urea Nitrogen 34 mg/dL (7-18); Bicarbonate 25 mmol/L (21-32); Glucose Level 332 mg/dL (74-106); Sodium Level 141 mmol/L (136-145)
[2019-08-01 21:35] LABS: ALT/SGPT 30 U/L (12-78); Albumin 2.7 g/dL (3.4-5.0); Alkaline Phosphatase 124 U/L (45-117); Bilirubin Direct < 0.1 mg/dL (0-0.2); Bilirubin Total 0.2 mg/dL (0.2-1.0); NT PRO-BNP 1453 pg/mL (<125); Protein, Total 6.7 g/dL (6.4-8.2); Troponin (Emerg Dept Use Only) < 0.02 ng/mL (0.0-0.045)
[2019-08-01 21:39] LABS: AST/SGOT 25 U/L (15-37); Potassium 4.1 mmol/L (3.5-5.1)
[2019-08-01] MEDS ORDERED: KETOROLAC 30 MG/ML INJ ONE (21:56)
[2019-08-01] MEDS ORDERED: INSULIN -REGULAR HUMAN 50 UNIT/0.5 ML ML ONE (22:25)
[2019-08-01] MEDS ORDERED: NA CHLORIDE 0.9% 500 ML ONE (22:26)
--- NOTE | 2019-08-01 23:22 | EDPHYS ---
Physician Documentation [facility] Name: Wero Kwong Sr Age: 54 yrs Sex: Male : 1965 Arrival Date: 08/01/2019 Time: 19:59 Bed 4 Private MD: ED Physician Milton Mims HPI: 07/31 23:04 This 54 yrs old Male presents to ER via EMS with complaints of weakness tw4 generalized. 23:04 The patient presents with dizziness, generalized weakness. tw4 23:07 Onset: The symptoms/episode began/occurred today. Context: occurred at home. Modifying tw4 factors: The symptoms are alleviated by nothing, the symptoms are aggravated by nothing. Associated signs and symptoms: The patient has no apparent associated signs or symptoms. Severity of symptoms: At their worst the symptoms were moderate in the emergency department the symptoms are unchanged. The patient has not experienced similar symptoms in the past. Historical: - Allergies: 20:05 Codeine; rr5 20:05 Hydrocodone-Acetaminophen; rr5 20:05 Morphine; rr5 - Home Meds: 20:05 acetazolamide 500 mg Oral cpER 1 cap 2 times per day [Active]; citalopram 20 mg tab 1 rr5 tab once daily [Active]; clopidogrel 75 mg Oral tab 1 tab once daily [Active]; furosemide 40 mg Oral tab 1 tab 2 times per day [Active]; gabapentin 300 mg Oral cap 3 caps twice a day [Active]; Humulin 70/30 100 unit/mL (70-30) Sub-Q susp [Active]; levetiracetam 500 mg Oral tab 1 tab 2 times per day [Active]; lisinopril 10 mg Oral tab 1 tab once daily [Active]; simvastatin 40 mg Oral tab 1 tab once daily [Active]; spironolactone 25 mg Oral tab nightly [Active]; travatan eye drops [Active]; - PMHx: 20:05 CAD; CHF; Cirrhosis; CVA; Diabetes - IDDM; High Cholesterol; Hypertension; kidney rr5 failure; Myocardial infarction; neuropathy; Seizures; dialysis (); - PSHx: 20:05 dialysis prot right chest; rr5 - Immunization history:: Adult Immunizations up to date. - Social history:: Smoking status: Patient reports the use of cigarette tobacco products, 2 sticks, Patient/guardian denies using alcohol, street drugs. ROS: 23:07 Constitutional: Negative for fever, chills, and weight loss, Eyes: Negative for injury, tw4 pain, redness, and discharge, Cardiovascular: Negative for chest pain, palpitations, and edema, Respiratory: Negative for shortness of breath, cough, wheezing, and pleuritic chest pain, Abdomen/GI: Negative for abdominal pain, nausea, vomiting, diarrhea, and constipation, Back: Negative for injury and pain, MS/Extremity: Negative for injury and deformity, Skin: Negative for injury, rash, and discoloration. 23:07 Neuro: Positive for dizziness, weakness, Negative for altered mental status, gait disturbance, headache, hearing loss, loss of consciousness, numbness, seizure activity, speech changes, syncope, near syncope, tingling, tinnitus, tremor. Exam: 23:07 Constitutional: This is a well developed, well nourished patient who is awake, alert, tw4 and in no acute distress. Head/Face: Normocephalic, atraumatic. Chest/axilla: Normal chest wall appearance and motion. Nontender with no deformity. No lesions are appreciated. Cardiovascular: Regular rate and rhythm with a normal S1 and S2. No gallops, murmurs, or rubs. Normal PMI, no JVD. No pulse deficits. Respiratory: Lungs have equal breath sounds bilaterally, clear to auscultation and percussion. No rales, rhonchi or wheezes noted. No increased work of breathing, no retractions or nasal flaring. Abdomen/GI: Soft, non-tender, with normal bowel sounds. No distension or tympany. No guarding or rebound. No evidence of tenderness throughout. Back: No spinal tenderness. No costovertebral tenderness. Full range of motion. MS/ Extremity: Pulses equal, no cyanosis. Neurovascular intact. Full, normal range of motion. Neuro: Awake and alert, GCS 15, oriented to person, place, time, and situation. Cranial nerves II-XII grossly intact. Motor strength 5/5 in all extremities. Sensory grossly intact. Cerebellar exam normal. Normal gait. Vital Signs: 20:10 BP 110 / 57; Pulse 57; Resp 19; Temp 98; Pulse Ox 97% ; Weight 48.53 kg; Height 5 ft. 6 rr5 in. (167.64 cm); Pain 0/10; 20:30 BP 110 / 57; Pulse 61; Resp 15; Pulse Ox 98% on R/A; rr5 21:30 BP 131 / 79; Pulse 69; Resp 19; Pulse Ox 100% ; rr5 22:30 BP 121 / 72; Pulse 66; Resp 14; Pulse Ox 97% on R/A; rr5 23:00 BP 138 / 74 Supine; Pulse 69; Resp 18; Pulse Ox 99% ; rr5 23:01 BP 147 / 84 Sitting; Pulse 68; Resp 15; Pulse Ox 98% ; rr5 23:02 BP 121 / 75 Standing; Pulse 62; Resp 17; Pulse Ox 100% ; rr5 23:35 BP 125 / 70; Pulse 63; Resp 16; Temp 98.1(O); Pulse Ox 98% ; rr5 20:10 Body Mass Index 17.27 (48.53 kg, 167.64 cm) rr5 MDM: 20:02 Patient medically screened. tw4 23:15 Differential diagnosis: cardiac arrhythmia, CVA, generalized weakness, idiopathic tw4 dizziness, syncope, vertigo. Data reviewed: vital signs, nurses notes. Data reviewed: lab test result(s), cardiac enzymes, CBC, electrolytes, hepatic panel, EKG, radiologic studies, plain films. Data interpreted: Pulse oximetry: Interpretation: normal. Test interpretation: by ED physician or midlevel provider: ECG, plain radiologic studies. Counseling: I had a detailed discussion with the patient and/or guardian regarding: the historical points, exam findings, and any diagnostic results supporting the discharge/admit diagnosis, lab results, radiology results. Special discussion: I discussed with the patient/guardian in detail that at this point there is no indication for admission to the hospital. It is understood, however, that if the symptoms persist or worsen the patient needs to return immediately for re-evaluation. 07/31 20:17 Order name: Basic Metabolic Panel; Complete Time: 21:50 tw4 07/31 21:50 Interpretation: Normal except: CL 110; CRE 3.53; GFR 18; BUN 34; GLUC 332. tw4 07/31 20:17 Order name: CBC with Diff; Complete Time: 21:50 tw4 07/31 21:51 Interpretation: Normal except: RBC 3.35; HGB 10.5; HCT 30.3; PLT 120; RDW 16.3; tw4 EOSINOPHIL % 7.3. 07/31 20:17 Order name: LFT's; Complete Time: 21:50 tw4 07/31 21:51 Interpretation: A/G 0.7; GLOB 4.0; ALB 2.7; ALK 124. tw4 07/31 20:17 Order name: Magnesium; Complete Time: 21:50 tw4 07/31 20:17 Order name: NT PRO-BNP; Complete Time: 21:50 tw4 07/31 21:51 Interpretation: NT PRO-BNP 1453. 07/31 20:17 Order name: PT-INR; Complete Time: 22:00 tw4 07/31 22:00 Interpretation: Within normal limits: PT 11.3. 4 07/31 20:17 Order name: Troponin (emerg Dept Use Only); Complete Time: 21:50 tw4 07/31 20:17 Order name: XRAY Chest (1 view); Complete Time: 21:50 tw4 07/31 20:22 Order name: Glucose, Ancillary Testing; Complete Time: 21:50 EDMS 07/31 21:04 Order name: Acetone Level; Complete Time: 22:19 EDMS 07/31 22:06 Order name: Glucose, Ancillary Testing; Complete Time: 22:19 EDMS 07/31 22:19 Interpretation: GLUC,ANCIL 322. 4 07/31 20:17 Order name: EKG; Complete Time: 20:17 tw4 07/31 20:17 Order name: Cardiac monitoring; Complete Time: 20:56 tw4 07/31 20:17 Order name: EKG - Nurse/Tech; Complete Time: 20:56 4 07/31 20:17 Order name: IV Saline Lock; Complete Time: 20:57 tw4 07/31 20:17 Order name: Labs collected and sent; Complete Time: 20:56 tw4 07/31 20:17 Order name: O2 Per Protocol; Complete Time: 20:56 tw4 07/31 20:17 Order name: O2 Sat Monitoring; Complete Time: 20:56 tw4 07/31 22:19 Order name: Orthostatics; Complete Time: 23:19 tw4 EC:07 Rate is 57 beats/min. Rhythm is regular, Sinus bradycardia. QRS [place] is Normal. HI tw4 interval is normal. QRS interval is normal. QT interval is normal. No Q waves. T waves are Flattened in leads III, aVF. No ST changes noted. Clinical impression: Sinus bradycardia. Interpreted by me. Reviewed by me. Administered Medications: 21:57 Drug: TORadol 30 mg Route: IVP; Site: right forearm; rr5 23:00 Follow up: Response: No adverse reaction rr5 22:30 Drug: Insulin Regular Human 5 units {Co-Signature: bb (Donna Coronel RN).} Route: IVP; rr5 Site: right forearm; 23:40 Follow up: Response: No adverse reaction; Blood sugar is lowered rr5 22:30 Drug: NS 0.9% 500 ml Route: IV; Rate: bolus; Site: right forearm; rr5 23:19 Follow up: Response: No adverse reaction; IV Status: Completed infusion; IV Intake: rr5 500ml Disposition: 08/01/19 23:13 Discharged to Home. Impression: Weakness. - Condition is Stable. - Discharge Instructions: Weakness, Fatigue. - Medication Reconciliation Form, Thank You Letter, Antibiotic Education, Prescription Opioid Use form. - Follow up: Private Physician; When: Upon discharge from the Emergency Department; Reason: Recheck today's complaints, Continuance of care, Re-evaluation by your physician. - Problem is an ongoing problem. - Symptoms have improved. Signatures: Dispatcher [employer] CYRUSMO Milton Mims MD MD tw4 Josep Dumont, RN RN rr5 Donna mclain Corrections: (The following items were deleted from the chart) 21:04 20:17 ACETONE, SERUM+C.LAB.BRZ ordered. [facility] 23:40 23:13 08/01/2019 23:13 Discharged to Home. Impression: Weakness. Condition is Stable. rr5 Forms are Medication Reconciliation Form, Thank You Letter, Antibiotic Education, Prescription Opioid Use. Follow up: Private Physician; When: Upon discharge from the Emergency Department; Reason: Recheck today's complaints, Continuance of care, Re-evaluation by your physician. Problem is an ongoing problem. Symptoms have improved. tw4
--- NOTE | 2019-08-01 23:22 | ER ---
Nurse's Notes [facility] Name: Wero Kwong Sr Age: 54 yrs Sex: Male : 1965 Arrival Date: 08/01/2019 Time: 19:59 Bed 4 Private MD: Diagnosis: Weakness Presentation: 07/31 20:10 Chief complaint: EMS states: patient complaint of generalized weakness that he almost rr5 pass out. His BP reading is 90/50 mmHg, CBG of 451 + ketones,NS 300ml given went BP up to 104/59 mmHg and CBG 358 mg/Dl. AO x 4, afebrile, feels comfortable right now. no other complaint. 20:10 Coronavirus screen: Proceed with normal triage. Ebola Screen: Patient negative for rr5 fever greater than or equal to 101.5 degrees Fahrenheit, and additional compatible Ebola Virus Disease symptoms Patient denies exposure to infectious person. Patient denies travel to an Ebola-affected area in the 21 days before illness onset. Initial Sepsis Screen: Does the patient meet any 2 criteria? No. Patient's initial sepsis screen is negative. Does the patient have a suspected source of infection? No. Patient's initial sepsis screen is negative. Risk Assessment: Do you want to hurt yourself or someone else? Patient reports no desire to harm self or others. Onset of symptoms was August 01, 2019. Care prior to arrival: IV initiated. 22 GA, in the left wrist, by EMS. 20:10 Method Of Arrival: EMS: [facility] rr5 20:10 Acuity: [place] 3 rr5 Triage Assessment: 20:10 General: Appears in no apparent distress. comfortable, Behavior is calm, cooperative, rr5 appropriate for age. Historical: - Allergies: 20:05 Codeine; rr5 20:05 Hydrocodone-Acetaminophen; rr5 20:05 Morphine; rr5 - Home Meds: 20:05 acetazolamide 500 mg Oral cpER 1 cap 2 times per day [Active]; citalopram 20 mg tab 1 rr5 tab once daily [Active]; clopidogrel 75 mg Oral tab 1 tab once daily [Active]; furosemide 40 mg Oral tab 1 tab 2 times per day [Active]; gabapentin 300 mg Oral cap 3 caps twice a day [Active]; Humulin 70/30 100 unit/mL (70-30) Sub-Q susp [Active]; levetiracetam 500 mg Oral tab 1 tab 2 times per day [Active]; lisinopril 10 mg Oral tab 1 tab once daily [Active]; simvastatin 40 mg Oral tab 1 tab once daily [Active]; spironolactone 25 mg Oral tab nightly [Active]; travatan eye drops [Active]; - PMHx: 20:05 CAD; CHF; Cirrhosis; CVA; Diabetes - IDDM; High Cholesterol; Hypertension; kidney rr5 failure; Myocardial infarction; neuropathy; Seizures; dialysis (); - PSHx: 20:05 dialysis prot right chest; rr5 - Immunization history:: Adult Immunizations up to date. - Social history:: Smoking status: Patient reports the use of cigarette tobacco products, 2 sticks, Patient/guardian denies using alcohol, street drugs. Screenin:10 Abuse screen: Denies threats or abuse. Denies injuries from another. Nutritional rr5 screening: No deficits noted. Tuberculosis screening: No symptoms or risk factors identified. Fall Risk None identified. IV access (20 points). Total Morales Fall Scale indicates No Risk (0-24 pts). Assessment: 20:10 General: Appears in no apparent distress. comfortable, Behavior is calm, cooperative, rr5 appropriate for age. 20:10 Pain: Denies pain. Neuro: Level of Consciousness is awake, alert, obeys commands, rr5 Oriented to person, place, time, situation. Cardiovascular: Reports low BP Capillary refill < 3 seconds Patient's skin is warm and dry. Respiratory: Airway is patent Respiratory effort is even, unlabored, Respiratory pattern is regular, symmetrical. GI: No signs and/or symptoms were reported involving the gastrointestinal system. Reports high sugar. : No signs and/or symptoms were reported regarding the genitourinary system. 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 Derm: Skin is intact, is healthy with good turgor, Skin temperature is warm. 20:56 Reassessment: family member petar [phone]. rr5 21:10 Reassessment: Patient appears in no apparent distress at this time. Patient is alert, rr5 oriented x 3, equal unlabored respirations, skin warm/dry/pink. no complaints made. 21:55 Reassessment: complaint of headache. ED provider aware with order made and carried out. rr5 CBG 322 mg/Dl result informed. 23:04 Reassessment: Patient appears in no apparent distress at this time. Patient is alert, rr5 oriented x 3, equal unlabored respirations, skin warm/dry/pink. no complaints made,ED provider informed for the orthostatic vital signs taken and recorded. with order for discharge. Patient states feeling better. Patient states symptoms have improved. 23:40 Reassessment: Patient appears in no apparent distress at this time. Patient is alert, rr5 oriented x 3, equal unlabored respirations, skin warm/dry/pink. ED provider informed for the latest CBG without orders made. discharge instruction given and explained without complaints made. Vital Signs: 20:10 BP 110 / 57; Pulse 57; Resp 19; Temp 98; Pulse Ox 97% ; Weight 48.53 kg; Height 5 ft. 6 rr5 in. (167.64 cm); Pain 0/10; 20:30 BP 110 / 57; Pulse 61; Resp 15; Pulse Ox 98% on R/A; rr5 21:30 BP 131 / 79; Pulse 69; Resp 19; Pulse Ox 100% ; rr5 22:30 BP 121 / 72; Pulse 66; Resp 14; Pulse Ox 97% on R/A; rr5 23:00 BP 138 / 74 Supine; Pulse 69; Resp 18; Pulse Ox 99% ; rr5 23:01 BP 147 / 84 Sitting; Pulse 68; Resp 15; Pulse Ox 98% ; rr5 23:02 BP 121 / 75 Standing; Pulse 62; Resp 17; Pulse Ox 100% ; rr5 23:35 BP 125 / 70; Pulse 63; Resp 16; Temp 98.1(O); Pulse Ox 98% ; rr5 20:10 Body Mass Index 17.27 (48.53 kg, 167.64 cm) rr5 ED Course: 19:59 Patient arrived in ED. ds1 20:02 Milton Mims MD is Attending Physician. tw4 20:12 Josep Dumont RN is Primary Nurse. rr5 20:16 Triage completed. rr5 20:18 Arm band placed on right wrist. rr5 20:19 Patient has correct armband on for positive identification. Placed in gown. Bed in low rr5 position. Call light in reach. Side rails up X2. Pulse ox on. NIBP on. 20:19 Maintain EMS IV. Dressing intact. Site clean \T\ dry. Gauge \T\ site: G22 left wrist. rr 5 20:55 Initial lab(s) drawn, by me, sent to lab. EKG done, by ED staff, reviewed by Milton Mims MD. Inserted saline lock: 22 gauge in right wrist, using aseptic technique. 20:57 Call light in reach. Door closed. Lights dimmed. Warm blanket given. Pillow given. lt1 21:10 XRAY Chest (1 view) In Process Unspecified. EDMS 23:40 No provider procedures requiring assistance completed. IV discontinued, intact, rr5 bleeding controlled, No redness/swelling at site. Pressure dressing applied. Administered Medications: 21:57 Drug: TORadol 30 mg Route: IVP; Site: right forearm; rr5 23:00 Follow up: Response: No adverse reaction rr5 22:30 Drug: Insulin Regular Human 5 units {Co-Signature: chemo (Donna Coronel RN).} Route: IVP; rr5 Site: right forearm; 23:40 Follow up: Response: No adverse reaction; Blood sugar is lowered rr5 22:30 Drug: NS 0.9% 500 ml Route: IV; Rate: bolus; Site: right forearm; rr5 23:19 Follow up: Response: No adverse reaction; IV Status: Completed infusion; IV Intake: rr5 500ml Intake: 23:19 IV: 500ml; Total: 500ml. rr5 Outcome: 23:13 Discharge ordered by . tw4 23:40 Patient left the ED. rr5 23:40 Discharged to home via wheelchair, with family. rr5 23:40 Condition: stable 23:40 Discharge instructions given to patient, family, Instructed on discharge instructions, follow up and referral plans. Demonstrated understanding of instructions, follow-up care. Signatures: Dispatcher [employer] [facility] Chelsea Keita ds1 Milton Mims MD MD tw4 Josep Dumont, RN RN rr5 Audrey Salvador lt1 Donna mclain
[2019-08-02 00:35] VITALS: BP 121/75; O2SAT 100
--- NOTE | 2019-08-02 16:49 | EKG ---
Test Date: 2019-08-01 Test Time: 20:36:01 Obstetrics And Gynecology Professor: NETTA MEASUREMENT RESULTS: Intervals: Rate: 57 CA: 144 QRSD: 142 QT: 496 QTc: 482 [place]: P: 22 CA: 144 QRS: 67 T: 59 INTERPRETIVE STATEMENTS: Sinus bradycardia Right bundle branch block Abnormal ECG Compared to ECG 06/07/2019 15:29:24 Sinus rhythm no longer present Myocardial infarct finding no longer present Electronically Signed On 08-02-19 16:47:28 CDT by Zion Colon
== END 2019-08-01 23:40 | disposition home or self-care (01) ==
LOC: ER 19:56
DX: R53.1 Weakness (principal); I25.2 Old myocardial infarction; I10 Essential (primary) hypertension; E11.22 Type 2 diabetes mellitus with diabetic chronic kidney disease; I50.9 Heart failure, unspecified; Z88.6 Allergy status to analgesic agent; Z79.4 Long term (current) use of insulin
CPT/HCPCS: 96361; 93005; 85025; 80048; 36415; 82010; 83735; 85610; 82947 ×3; 80076; 84484; 83880; 71045; 96375; 96374; 99284; J7040

== ENCOUNTER 2019-08-07 07:40 | Day surgery (SDC) | payer OTHER ==
--- OUTSIDE RECORDS SUMMARY | 2019-08-06 17:20 | XMS REPORT ---
:1965 Author Organization [facility] t Address [address] [place] [address] Care Team Providers Name Role Phone NOBLE RODRIGUES Unavailable Unavailable Problems This patient has no known problems. Allergies, Adverse Reactions, Alerts This patient has no known allergies or adverse reactions. Medications This patient has no known medications. Results Test Description Test Time Test Comments Text Results Atomic Results Result Comments POCT-GLUCOSE METER 2019-01-11 12:50:00 Test Item Value Reference Range Comments POC-GLUCOSE METER (BEAKER) (test 119 mg/dL 70-[address] [facility] [address] [facility] code = 1538) [facility] [address] BASIC METABOLIC [id number] 06:16:00 Test Item Value Reference Range Comments SODIUM (BEAKER) (test 139 meq/L 136-145 code = 381) POTASSIUM (BEAKER) (test 4.5 meq/L 3.5-5.1 code = 379) CHLORIDE (BEAKER) (test 109 meq/L 98-107 code = 382) CO2 (BEAKER) (test code = 23 meq/L 22-29 355) BLOOD UREA NITROGEN 30 mg/dL 7-21 (BEAKER) (test code = 354) CREATININE (BEAKER) (test 1.87 mg/dL 0.57-1.25 code = 358) GLUCOSE RANDOM (BEAKER) 219 mg/dL 70-105 (test code = 652) CALCIUM (BEAKER) (test 8.9 mg/dL 8.4-10.2 code = 697) EGFR (BEAKER) (test code 38 mL/min/1.73 sq m EST IMATED GFR IS NOT = 1092) ACCURATE CREA TININE CLEARANCE IN PRE DICTING GLOMERULAR FILTR ATION RATE. ESTIMATED GFR IS NOT APPLICABLE F OR DIALYSIS PATIENT S. CBC W/PLT COUNT & AUTO [id number] 05:42:00 Test Item Value Reference Range Comments WHITE BLOOD CELL COUNT (BEAKER) (test code = 4.1 K/ L 3.5 -10.5 775) RED BLOOD CELL COUNT (BEAKER) (test code = 761) 3.72 M/ L 4.63-6.08 HEMOGLOBIN (BEAKER) (test code = 410) 11.6 GM/DL 13.7-17.5 HEMATOCRIT (BEAKER) (test code = 411) 33.6 % 40.1-51.0 MEAN CORPUSCULAR VOLUME (BEAKER) (test code = 90.3 fL 79 .0-92.2 753) MEAN CORPUSCULAR HEMOGLOBIN (BEAKER) (test code 31.2 pg 25.7-32.2 = 751) MEAN CORPUSCULAR HEMOGLOBIN CONC (BEAKER) (test 34.5 GM/DL 32.3-36.5 code = 752) RED CELL DISTRIBUTION WIDTH (BEAKER) (test code 13.7 % 11.6-14.4 = 412) PLATELET COUNT (BEAKER) (test code = 756) 170 K/CU MM 150-45 0 MEAN PLATELET VOLUME (BEAKER) (test code = 754) 11.8 fL 9.4-12.4 NUCLEATED RED BLOOD CELLS (BEAKER) (test code = 0 /100 WBC 0-0 413) NEUTROPHILS RELATIVE PERCENT (BEAKER) (test code 53 % = 429) LYMPHOCYTES RELATIVE PERCENT (BEAKER) (test code 32 % = 430) MONOCYTES RELATIVE PERCENT (BEAKER) (test code = 7 % 431) EOSINOPHILS RELATIVE PERCENT (BEAKER) (test code 6 % = 432) BASOPHILS RELATIVE PERCENT (BEAKER) (test code = 1 % 437) NEUTROPHILS ABSOLUTE COUNT (BEAKER) (test code = 2.17 K/ L 1.78-5.38 670) LYMPHOCYTES ABSOLUTE COUNT (BEAKER) (test code = 1.31 K/ L 1.32-3.57 414) MONOCYTES ABSOLUTE COUNT (BEAKER) (test code = 0.29 K/ L 0 .30-0.82 415) EOSINOPHILS ABSOLUTE COUNT (BEAKER) (test code = 0.26 K/ L 0.04-0.54 416) BASOPHILS ABSOLUTE COUNT (BEAKER) (test code = 0.03 K/ L 0 .01-0.08 417) IMMATURE GRANULOCYTES-RELATIVE PERCENT (BEAKER) 1 % 0-1 (test code = 2801) POCT-GLUCOSE [id number] 20:34:00 Test Item Value Reference Range Comments POC-GLUCOSE METER (BEAKER) 205 mg/dL 70-110 TESTE D AT [address] (test code = 1538) [facility] [address], CHEST, WITHOUT [id number] 18:24:00FINAL REPORT TECHNIQUE: CT scan of the chest WITHOUT intravenous contrast. Dose modulation, iterative reconstruction, and/or weight-based adjustment of the mA/kV was utilized to reduce the radiation dose to as low as reasonably achievable. INDICATION: Chest pain or SOB, pleurisyor effusion suspected. COMPARISON: None. FINDINGS: ABSENCE OF INTRAVENOUS CONTRAST DECREASES SENSIT IVITY FOR DETECTION OF FOCAL LESIONS AND VASCULAR [...] CT follow-up is necessary. Signed: Amrik Sierra MDReport Verified Date/Time: 01/10/2019 18:24:57 Reading Location: [facility] [id number] CT Body Reading Room POCT-GLUCOSE [id number] 17:31:00 Test Item Value Reference Range Comments POC-GLUCOSE METER (BEAKER) 183 mg/dL 70-110 TESTE D AT [address] (test code = 1538) [facility] [address], BRAIN, WITHOUT [id number] 14:47:00FINAL REPORT CT, BRAIN, WITHOUT CONTRAST INDICATION: [...] abnormal extra-axial collection. No evidence of acute territorial infarct. No mass effect. No hydrocephalus. Osseous structures: [...] pathology, MR examination is recommended for further thierry acterization. Signed: Lubna Lr MDReport Verified Date/Time: 01/10/2019 14:47:25 -[id number] 11:36:00 Test Item Value Reference Range Comments D-DIMER QUANTITATIVE (BEAKER) (test code = 2.14 MG/L FEU <0.50 671) Intended Use: The D-Dimer Assay can be used to aid in the diagnosis of Deep Vein Thrombosis (DVT) and Pulmonary Embolism Disease (PED).In patients with low pre- test probability, various studies concerning STA Liatest D-dimer test have reported that with a cutoff value of 0.50 MG/L FEU, the Negative Predictive Value (NPV) regarding the exclusion of thrombosis is within 95-100% range.RAD, CHEST, 1 VIEW, NON [id number] 08:17:00Reason for exam:->chest painShould this be performed [...] MDReport Verified Date/Time: 01/10/2019 08:17:19 Reading Location: [address] Ortho Consult Reading Room TROPONIN [id number] 07:02:00 Test Item Value Reference Range Comments TROPONIN I (BEAKER) (test code = 397) 0.02 ng/mL 0.00-0.03 Troponin I (TnI) levels [...] disease, and persistent tachyarrhythmia.B-TYPE NATRIURETIC FACTOR (BNP) 2019-01-10 06:59:00 Test Item Value Reference Range Comments B-TYPE NATRIURETIC PEPTIDE (BEAKER) (test code = 130 pg/mL 0-100 700) BASIC METABOLIC [id number] 06:51:00 Test Item Value Reference Range Comments SODIUM (BEAKER) (test 137 meq/L 136-145 code = 381) POTASSIUM (BEAKER) (test 4.3 meq/L 3.5-5.1 code = 379) CHLORIDE (BEAKER) (test 108 meq/L 98-107 code = 382) CO2 (BEAKER) (test code = 21 meq/L 22-29 355) BLOOD UREA NITROGEN 34 mg/dL 7-21 (BEAKER) (test code = 354) CREATININE (BEAKER) (test 2.00 mg/dL 0.57-1.25 code = 358) GLUCOSE RANDOM (BEAKER) 169 mg/dL 70-105 (test code = 652) CALCIUM (BEAKER) (test 8.7 mg/dL 8.4-10.2 code = 697) EGFR (BEAKER) (test code 35 mL/min/1.73 sq m EST IMATED GFR IS NOT = 1092) ACCURATE CREA TININE CLEARANCE IN PRE DICTING GLOMERULAR FILTR ATION RATE. ESTIMATED GFR IS NOT APPLICABLE F OR DIALYSIS PATIENT S. CBC W/PLT COUNT & AUTO [id number] 06:27:00 Test Item Value Reference Range Comments WHITE BLOOD CELL COUNT (BEAKER) (test code = 5.0 K/ L 3.5 -10.5 775) RED BLOOD CELL COUNT (BEAKER) (test code = 761) 3.44 M/ L 4.63-6.08 HEMOGLOBIN (BEAKER) (test code = 410) 10.8 GM/DL 13.7-17.5 HEMATOCRIT (BEAKER) (test code = 411) 31.5 % 40.1-51.0 MEAN CORPUSCULAR VOLUME (BEAKER) (test code = 91.6 fL 79 .0-92.2 753) MEAN CORPUSCULAR HEMOGLOBIN (BEAKER) (test code 31.4 pg 25.7-32.2 = 751) MEAN CORPUSCULAR HEMOGLOBIN CONC (BEAKER) (test 34.3 GM/DL 32.3-36.5 code = 752) RED CELL DISTRIBUTION WIDTH (BEAKER) (test code 13.7 % 11.6-14.4 = 412) PLATELET COUNT (BEAKER) (test code = 756) 146 K/CU MM 150-45 0 MEAN PLATELET VOLUME (BEAKER) (test code = 754) 12.1 fL 9.4-12.4 NUCLEATED RED BLOOD CELLS (BEAKER) (test code = 0 /100 WBC 0-0 413) NEUTROPHILS RELATIVE PERCENT (BEAKER) (test code 48 % = 429) LYMPHOCYTES RELATIVE PERCENT (BEAKER) (test code 37 % = 430) MONOCYTES RELATIVE PERCENT (BEAKER) (test code = 8 % 431) EOSINOPHILS RELATIVE PERCENT (BEAKER) (test code 6 % = 432) BASOPHILS RELATIVE PERCENT (BEAKER) (test code = 1 % 437) NEUTROPHILS ABSOLUTE COUNT (BEAKER) (test code = 2.42 K/ L 1.78-5.38 670) LYMPHOCYTES ABSOLUTE COUNT (BEAKER) (test code = 1.83 K/ L 1.32-3.57 414) MONOCYTES ABSOLUTE COUNT (BEAKER) (test code = 0.40 K/ L 0 .30-0.82 415) EOSINOPHILS ABSOLUTE COUNT (BEAKER) (test code = 0.30 K/ L 0.04-0.54 416) BASOPHILS ABSOLUTE COUNT (BEAKER) (test code = 0.04 K/ L 0 .01-0.08 417) IMMATURE GRANULOCYTES-RELATIVE PERCENT (BEAKER) 0 % 0-1 (test code = 2801) TROPONIN [id number] 23:52:00 Test Item Value Reference Range Comments TROPONIN I (BEAKER) (test code = 397) 0.03 ng/mL 0.00-0.03 Troponin I (TnI) levels [...] acidosis, acute neurological disease, and persistent tachyarrhythmia.POCT-GLUCOSE [id number] 22:03:00 Test Item Value Reference Range Comments POC-GLUCOSE METER (BEAKER) 315 mg/dL 70-110 TESTE D AT [address] (test code = 1538) [place] [address] POCT-GLUCOSE [id number] 20:02:00 Test Item Value Reference Range Comments POC-GLUCOSE METER (BEAKER) 250 mg/dL 70-110 TESTE D AT [address] (test code = 1538) [place] [address] TROPONIN [id number] 19:05:00 Test Item Value Reference Range Comments TROPONIN I (BEAKER) (test code = 397) 0.04 ng/mL 0.00-0.03 Troponin I (TnI) levels [...] acidosis, acute neurological disease, and persistent tachyarrhythmia.POCT-GLUCOSE [id number] 17:40:00 Test Item Value Reference Range Comments POC-GLUCOSE METER (BEAKER) 246 mg/dL 70-[address] [facility] [address] [facility] (test code = 1538) [place] [address] POCT-GLUCOSE [id number] 08:11:00 Test Item Value Reference Range Comments POC-GLUCOSE METER (BEAKER) 243 mg/dL 70-[address] [facility] [address] [facility] (test code = 1538) [place] [address] BASIC METABOLIC [id number] 05:04:00 Test Item Value Reference Range Comments SODIUM (BEAKER) (test 138 meq/L 136-145 code = 381) POTASSIUM (BEAKER) (test 4.5 meq/L 3.5-5.1 code = 379) CHLORIDE (BEAKER) (test 110 meq/L 98-107 code = 382) CO2 (BEAKER) (test code = 22 meq/L 22-29 355) BLOOD UREA NITROGEN 34 mg/dL 7-21 (BEAKER) (test code = 354) CREATININE (BEAKER) (test 2.01 mg/dL 0.57-1.25 code = 358) GLUCOSE RANDOM (BEAKER) 243 mg/dL 70-105 (test code = 652) CALCIUM (BEAKER) (test 8.5 mg/dL 8.4-10.2 code = 697) EGFR (BEAKER) (test code 35 mL/min/1.73 sq m EST IMATED GFR IS NOT = 1092) ACCURATE CREA TININE CLEARANCE IN PRE DICTING GLOMERULAR FILTR ATION RATE. ESTIMATED GFR IS NOT APPLICABLE F OR DIALYSIS PATIENT S. [id number] 04:56:00 Test Item Value Reference Range Comments PARTIAL THROMBOPLASTIN TIME (BEAKER) (test code 35.0 seconds 22.5-36.0 = 760) CBC W/PLT COUNT & AUTO [id number] 04:48:00 Test Item Value Reference Range Comments WHITE BLOOD CELL COUNT (BEAKER) (test code = 4.9 K/ L 3.5 -10.5 775) RED BLOOD CELL COUNT (BEAKER) (test code = 761) 3.36 M/ L 4.63-6.08 HEMOGLOBIN (BEAKER) (test code = 410) 10.5 GM/DL 13.7-17.5 HEMATOCRIT (BEAKER) (test code = 411) 30.5 % 40.1-51.0 MEAN CORPUSCULAR VOLUME (BEAKER) (test code = 90.8 fL 79 .0-92.2 753) MEAN CORPUSCULAR HEMOGLOBIN (BEAKER) (test code 31.3 pg 25.7-32.2 = 751) MEAN CORPUSCULAR HEMOGLOBIN CONC (BEAKER) (test 34.4 GM/DL 32.3-36.5 code = 752) RED CELL DISTRIBUTION WIDTH (BEAKER) (test code 13.5 % 11.6-14.4 = 412) PLATELET COUNT (BEAKER) (test code = 756) 116 K/CU MM 150-45 0 MEAN PLATELET VOLUME (BEAKER) (test code = 754) 11.9 fL 9.4-12.4 NUCLEATED RED BLOOD CELLS (BEAKER) (test code = 0 /100 WBC 0-0 413) NEUTROPHILS RELATIVE PERCENT (BEAKER) (test code 52 % = 429) LYMPHOCYTES RELATIVE PERCENT (BEAKER) (test code 36 % = 430) MONOCYTES RELATIVE PERCENT (BEAKER) (test code = 8 % 431) EOSINOPHILS RELATIVE PERCENT (BEAKER) (test code 4 % = 432) BASOPHILS RELATIVE PERCENT (BEAKER) (test code = 0 % 437) NEUTROPHILS ABSOLUTE COUNT (BEAKER) (test code = 2.51 K/ L 1.78-5.38 670) LYMPHOCYTES ABSOLUTE COUNT (BEAKER) (test code = 1.74 K/ L 1.32-3.57 414) MONOCYTES ABSOLUTE COUNT (BEAKER) (test code = 0.38 K/ L 0 .30-0.82 415) EOSINOPHILS ABSOLUTE COUNT (BEAKER) (test code = 0.18 K/ L 0.04-0.54 416) BASOPHILS ABSOLUTE COUNT (BEAKER) (test code = 0.02 K/ L 0 .01-0.08 417) IMMATURE GRANULOCYTES-RELATIVE PERCENT (BEAKER) 1 % 0-1 (test code = 2801) POCT-GLUCOSE [id number] 22:08:00 Test Item Value Reference Range Comments POC-GLUCOSE METER (BEAKER) 364 mg/dL 70-110 Notif natalie LEACH MD/TESTED AT [facility] (test code = 1538) [address] [facility] [address] POCT-GLUCOSE [id number] 17:05:00 Test Item Value Reference Range Comments POC-GLUCOSE METER (BEAKER) 389 mg/dL 70-110 Notif natalie LEACH MD/TESTED AT [facility] (test code = 1538) [address] [facility] [address] BASIC METABOLIC [id number] 16:28:00 Test Item Value Reference Range Comments SODIUM (BEAKER) (test 136 meq/L 136-145 code = 381) POTASSIUM (BEAKER) (test 4.7 meq/L 3.5-5.1 code = 379) CHLORIDE (BEAKER) (test 107 meq/L 98-107 code = 382) CO2 (BEAKER) (test code = 23 meq/L 22-29 355) BLOOD UREA NITROGEN 35 mg/dL 7-21 (BEAKER) (test code = 354) CREATININE (BEAKER) (test 2.22 mg/dL 0.57-1.25 code = 358) GLUCOSE RANDOM (BEAKER) 358 mg/dL 70-105 (test code = 652) CALCIUM (BEAKER) (test 8.7 mg/dL 8.4-10.2 code = 697) EGFR (BEAKER) (test code 31 mL/min/1.73 sq m EST IMATED GFR IS NOT = 1092) ACCURATE CREA TININE CLEARANCE IN PRE DICTING GLOMERULAR FILTR ATION RATE. ESTIMATED GFR IS NOT APPLICABLE F OR DIALYSIS PATIENT S. [id number] 16:26:00 Test Item Value Reference Range Comments PROTIME (BEAKER) (test code = 759) 13.4 seconds 11.9-14.2 INR (BEAKER) (test code = 370) 1.1 <=5.9 PARTIAL THROMBOPLASTIN TIME (BEAKER) (test code 32.0 seconds 22.5-36.0 = 760) Effective 09/23/2018: PT Reference Range ChangeNew: 11.9-14.2 Previous: 11.7- 14.7RECOMMENDED COUMADIN/WARFARIN INR THERAPY RANGESSTANDARD DOSE: 2.0-3.0 Includes: PROPHYLAXIS for venous thrombosis, systemic embolization; TREATMENT for venous thrombosis and/or pulmonary embolus.HIGH RISK: Target INR is2.5-3.5 for patients wiht mechanical heart valves.[id number] 16:26:00 Test Item Value Reference Range Comments PARTIAL THROMBOPLASTIN TIME (BEAKER) (test code 32.0 seconds 22.5-36.0 = 760) POCT-GLUCOSE [id number] 12:06:00 Test Item Value Reference Range Comments POC-GLUCOSE METER (BEAKER) 321 mg/dL 70-110 Notif natalie LEACH MD/TESTED AT [facility] (test code = 1538) [address] [facility] [address] POCT-GLUCOSE [id number] 08:29:00 Test Item Value Reference Range Comments POC-GLUCOSE METER (BEAKER) 263 mg/dL 70-[address] [facility] [address] [facility] (test code = 1538) [facility] [address] [id number] 04:54:00 Test Item Value Reference Range Comments PARTIAL THROMBOPLASTIN TIME (BEAKER) (test code 31.0 seconds 22.5-36.0 = 760) CBC W/PLT COUNT & AUTO [id number] 04:43:00 Test Item Value Reference Range Comments WHITE BLOOD CELL COUNT (BEAKER) (test code = 6.6 K/ L 3.5 -10.5 775) RED BLOOD CELL COUNT (BEAKER) (test code = 761) 3.45 M/ L 4.63-6.08 HEMOGLOBIN (BEAKER) (test code = 410) 10.9 GM/DL 13.7-17.5 HEMATOCRIT (BEAKER) (test code = 411) 30.8 % 40.1-51.0 MEAN CORPUSCULAR VOLUME (BEAKER) (test code = 89.3 fL 79 .0-92.2 753) MEAN CORPUSCULAR HEMOGLOBIN (BEAKER) (test code 31.6 pg 25.7-32.2 = 751) MEAN CORPUSCULAR HEMOGLOBIN CONC (BEAKER) (test 35.4 GM/DL 32.3-36.5 code = 752) RED CELL DISTRIBUTION WIDTH (BEAKER) (test code 13.5 % 11.6-14.4 = 412) PLATELET COUNT (BEAKER) (test code = 756) 138 K/CU MM 150-45 0 MEAN PLATELET VOLUME (BEAKER) (test code = 754) 12.3 fL 9.4-12.4 NUCLEATED RED BLOOD CELLS (BEAKER) (test code = 0 /100 WBC 0-0 413) NEUTROPHILS RELATIVE PERCENT (BEAKER) (test code 64 % = 429) LYMPHOCYTES RELATIVE PERCENT (BEAKER) (test code 24 % = 430) MONOCYTES RELATIVE PERCENT (BEAKER) (test code = 8 % 431) EOSINOPHILS RELATIVE PERCENT (BEAKER) (test code 3 % = 432) BASOPHILS RELATIVE PERCENT (BEAKER) (test code = 1 % 437) NEUTROPHILS ABSOLUTE COUNT (BEAKER) (test code = 4.22 K/ L 1.78-5.38 670) LYMPHOCYTES ABSOLUTE COUNT (BEAKER) (test code = 1.54 K/ L 1.32-3.57 414) MONOCYTES ABSOLUTE COUNT (BEAKER) (test code = 0.53 K/ L 0 .30-0.82 415) EOSINOPHILS ABSOLUTE COUNT (BEAKER) (test code = 0.20 K/ L 0.04-0.54 416) BASOPHILS ABSOLUTE COUNT (BEAKER) (test code = 0.03 K/ L 0 .01-0.08 417) IMMATURE GRANULOCYTES-RELATIVE PERCENT (BEAKER) 1 % 0-1 (test code = 2801) POCT-GLUCOSE [id number] 22:11:00 Test Item Value Reference Range Comments POC-GLUCOSE METER (BEAKER) 319 mg/dL 70-110 Notif natalie LEACH MD/TESTED AT [facility] (test code = 1538) [address] [place] [address] [id number] 20:11:00 Test Item Value Reference Range Comments PARTIAL THROMBOPLASTIN TIME (BEAKER) (test code 33.3 seconds 22.5-36.0 = 760) POCT-GLUCOSE [id number] 18:49:00 Test Item Value Reference Range Comments POC-GLUCOSE METER (BEAKER) 309 mg/dL 70-110 TESTE D AT [address] (test code = 1538) [place] [address] POCT-GLUCOSE [id number] 14:48:00 Test Item Value Reference Range Comments POC-GLUCOSE METER (BEAKER) 161 mg/dL 70-110 TESTE D AT [address] (test code = 1538) [place] [address] POCT-GLUCOSE [id number] 14:46:00 Test Item Value Reference Range Comments POC-GLUCOSE METER (BEAKER) 159 mg/dL 70-110 TESTE D AT [address] (test code = 1538) [place] [address] TROPONIN [id number] 13:58:00 Test Item Value Reference Range Comments TROPONIN I (BEAKER) (test code = 397) < ng/mL 0.00-0.03 Troponin I (TnI) levels [...] failure, acidosis, acute neurological disease, and persistent tachyarrhythmia.[id number] 12:25:00 Test Item Value Reference Range Comments PARTIAL THROMBOPLASTIN TIME (BEAKER) (test code 30.3 seconds 22.5-36.0 = 760) POCT-GLUCOSE [id number] 12:18:00 Test Item Value Reference Range Comments POC-GLUCOSE METER (BEAKER) 168 mg/dL 70-110 TESTE D AT [address] (test code = 1538) [place] [address] POCT-GLUCOSE [id number] 11:06:00 Test Item Value Reference Range Comments POC-GLUCOSE METER (BEAKER) 180 mg/dL 70-110 TESTE D AT [address] (test code = 1538) [place] [address] POCT-GLUCOSE [id number] 10:21:00 Test Item Value Reference Range Comments POC-GLUCOSE METER (BEAKER) 195 mg/dL 70-110 TESTE D AT [address] (test code = 1538) [place] [address] POCT-GLUCOSE [id number] 10:21:00 Test Item Value Reference Range Comments POC-GLUCOSE METER (BEAKER) 180 mg/dL 70-110 TESTE D AT [address] (test code = 1538) [place] [address] POCT-GLUCOSE [id number] 08:06:00 Test Item Value Reference Range Comments POC-GLUCOSE METER (BEAKER) 218 mg/dL 70-[address] [facility] [address] [facility] (test code = 1538) [place] [address] TROPONIN [id number] 07:00:00 Test Item Value Reference Range Comments TROPONIN I (BEAKER) (test code = 397) 0.01 ng/mL 0.00-0.03 Troponin I (TnI) levels [...] afterwardsOnce on admission and Daily AM afterwardsPOCT-GLUCOSE [id number] 06:58:00 Test Item Value Reference Range Comments POC-GLUCOSE METER (BEAKER) 248 mg/dL 70-110 TESTE D AT [address] (test code = 1538) [place] [address] [id number] 06:54:00 Test Item Value Reference Range Comments PHOSPHORUS (BEAKER) (test code = 604) 2.5 mg/dL 2.3-4.7 Once on admission and Daily AM afterwardsOnce on admission and Daily AM afterwardsOnce on admission and Daily AM [id number] 06:54:00 Test Item Value Reference Range Comments MAGNESIUM (BEAKER) (test code = 627) 2.2 mg/dL 1.6-2.6 Once on admission and Daily AM afterwardsOnce on admission and Daily AM afterwardsOnce on admission and Daily AM afterwardsBASIC METABOLIC PANEL 2019-01-07 06:54:00 Test Item Value Reference Range Comments SODIUM (BEAKER) (test 137 meq/L 136-145 code = 381) POTASSIUM (BEAKER) (test 4.4 meq/L 3.5-5.1 code = 379) CHLORIDE (BEAKER) (test 111 meq/L 98-107 code = 382) CO2 (BEAKER) (test code = 22 meq/L 22-29 355) BLOOD UREA NITROGEN 37 mg/dL 7-21 (BEAKER) (test code = 354) CREATININE (BEAKER) (test 1.93 mg/dL 0.57-1.25 code = 358) GLUCOSE RANDOM (BEAKER) 253 mg/dL 70-105 (test code = 652) CALCIUM (BEAKER) (test 8.1 mg/dL 8.4-10.2 code = 697) EGFR (BEAKER) (test code 37 mL/min/1.73 sq m EST IMATED GFR IS NOT = 1092) ACCURATE CREA TININE CLEARANCE IN PRE DICTING GLOMERULAR FILTR ATION RATE. ESTIMATED GFR IS NOT APPLICABLE F OR DIALYSIS PATIENT S. Once on admission and Daily AM afterwardsOnce on admission and Daily AM afterwardsOnce on admission and Daily AM afterwardsCBC W/PLT COUNT & AUTO [id number] 06:42:00 Test Item Value Reference Range Comments WHITE BLOOD CELL COUNT (BEAKER) (test code = 4.8 K/ L 3.5 -10.5 775) RED BLOOD CELL COUNT (BEAKER) (test code = 761) 3.50 M/ L 4.63-6.08 HEMOGLOBIN (BEAKER) (test code = 410) 11.0 GM/DL 13.7-17.5 HEMATOCRIT (BEAKER) (test code = 411) 31.7 % 40.1-51.0 MEAN CORPUSCULAR VOLUME (BEAKER) (test code = 90.6 fL 79 .0-92.2 753) MEAN CORPUSCULAR HEMOGLOBIN (BEAKER) (test code 31.4 pg 25.7-32.2 = 751) MEAN CORPUSCULAR HEMOGLOBIN CONC (BEAKER) (test 34.7 GM/DL 32.3-36.5 code = 752) RED CELL DISTRIBUTION WIDTH (BEAKER) (test code 13.5 % 11.6-14.4 = 412) PLATELET COUNT (BEAKER) (test code = 756) 118 K/CU MM 150-45 0 MEAN PLATELET VOLUME (BEAKER) (test code = 754) 12.1 fL 9.4-12.4 NUCLEATED RED BLOOD CELLS (BEAKER) (test code = 0 /100 WBC 0-0 413) NEUTROPHILS RELATIVE PERCENT (BEAKER) (test code 42 % = 429) LYMPHOCYTES RELATIVE PERCENT (BEAKER) (test code 46 % = 430) MONOCYTES RELATIVE PERCENT (BEAKER) (test code = 7 % 431) EOSINOPHILS RELATIVE PERCENT (BEAKER) (test code 4 % = 432) BASOPHILS RELATIVE PERCENT (BEAKER) (test code = 1 % 437) NEUTROPHILS ABSOLUTE COUNT (BEAKER) (test code = 2.00 K/ L 1.78-5.38 670) LYMPHOCYTES ABSOLUTE COUNT (BEAKER) (test code = 2.22 K/ L 1.32-3.57 414) MONOCYTES ABSOLUTE COUNT (BEAKER) (test code = 0.34 K/ L 0 .30-0.82 415) EOSINOPHILS ABSOLUTE COUNT (BEAKER) (test code = 0.20 K/ L 0.04-0.54 416) BASOPHILS ABSOLUTE COUNT (BEAKER) (test code = 0.04 K/ L 0 .01-0.08 417) IMMATURE GRANULOCYTES-RELATIVE PERCENT (BEAKER) 1 % 0-1 (test code = 2801) [id number] 06:28:00 Test Item Value Reference Range Comments PARTIAL THROMBOPLASTIN TIME (BEAKER) (test code 30.6 seconds 22.5-36.0 = 760) POCT-GLUCOSE [id number] 06:01:00 Test Item Value Reference Range Comments POC-GLUCOSE METER (BEAKER) 266 mg/dL 70-110 TESTE D AT [address] (test code = 1538) [place] [id number] POCT-GLUCOSE [id number] 04:57:00 Test Item Value Reference Range Comments POC-GLUCOSE METER (BEAKER) 271 mg/dL 70-110 TESTE D AT [address] (test code = 1538) [place] [id number] POCT-GLUCOSE [id number] 04:05:00 Test Item Value Reference Range Comments POC-GLUCOSE METER (BEAKER) 308 mg/dL 70-110 Notif natalie LEACH MD/TESTED AT [facility] (test code = 1538) [address] [place] [address] POCT-GLUCOSE [id number] 02:57:00 Test Item Value Reference Range Comments POC-GLUCOSE METER (BEAKER) 343 mg/dL 70-110 Notif natalie LEACH MD/TESTED AT [facility] (test code = 1538) [address] [place] [address] RAD, CHEST, 1 VIEW, NON [id number] 02:27:00Reason for exam:->mediastinal wideningShould this be performed at the bedside?->YesFINAL REPORT Chest, 1 view. History: Mediastinal widening Comparison: Plain r adiograph the chest dated 02/03/2004 IMPRESSION: The cardiomediastinal silhouette and pulmonary vasculature are within normal limits for a portable exam. If there is persistent clinical concern for mediastinal widening, recommend further evaluation with upright PA and lateral radiograph. The lungs areclear without evidence of consolidation or effusion. The soft tissues and osseous structures are intact. Signed: Wilmer Kline Verified Date/Time: 01/07/2019 02:27:45 POCT-GLUCOSE [id number] 01:57:00 Test Item Value Reference Range Comments POC-GLUCOSE METER (BEAKER) 369 mg/dL 70-110 TESTE D AT [address] (test code = 1538) [facility] [id number] [id number] POCT-GLUCOSE [id number] 01:06:00 Test Item Value Reference Range Comments POC-GLUCOSE METER (BEAKER) 395 mg/dL 70-110 Notif ied HAYLEE BOSS/TESTED AT [facility] (test code = 1538) [address] [place] [id number] TROPONIN [id number] 00:36:00 Test Item Value Reference Range Comments TROPONIN I (BEAKER) (test code = 397) 0.01 ng/mL 0.00-0.03 Troponin I (TnI) levels [...] disease, and persistent tachyarrhythmia.B-TYPE NATRIURETIC FACTOR (BNP) 2019-01-07 00:35:00 Test Item Value Reference Range Comments B-TYPE NATRIURETIC PEPTIDE (BEAKER) (test code = 151 pg/mL 0-100 700) [id number] 00:19:00 Test Item Value Reference Range Comments PARTIAL THROMBOPLASTIN TIME (BEAKER) (test code 28.2 seconds 22.5-36.0 = 760) Prior to initiating heparinPOCT-GLUCOSE [id number] 00:16:00 Test Item Value Reference Range Comments POC-GLUCOSE METER (BEAKER) 413 mg/dL 70-[address] [facility] [address] (test code = 1538) [facility] 77 [address] POCT-GLUCOSE [id number] 23:10:00 Test Item Value Reference Range Comments POC-GLUCOSE METER (BEAKER) 452 mg/dL 70-110 Notif iesterling LEACH MD/TESTED AT [facility] (test code = 1538) [address] [place] [address] POCT-GLUCOSE [id number] 22:06:00 Test Item Value Reference Range Comments POC-GLUCOSE METER (BEAKER) 383 mg/dL 70-110 TESTE D AT [address] (test code = 1538) [place] [address], BRAIN, WITHOUT [id number] 21:38:00FINAL REPORT CT Head without contrast CLINICAL HISTORY: Subdural hematoma TECHNIQUE: Contiguous axial images through the head without [...] identified. Mild generalized parenchymal volume loss. Intracranial vascular calcifications. Chronic microvascular ischemic changes. Subgaleal hematoma at [...] of dictation. Signed: Wilmer Kline Verified Date/Time: 01/06/2019 21:38:52 BASI METABOLIC [id number] 21:12:00 Test Item Value Reference Range Comments SODIUM (BEAKER) (test 134 meq/L 136-145 code = 381) POTASSIUM (BEAKER) (test 4.9 meq/L 3.5-5.1 Specime n slightly code = 379) hemolyzed CHLORIDE (BEAKER) (test 107 meq/L 98-107 code = 382) CO2 (BEAKER) (test code = 19 meq/L 22-29 355) BLOOD UREA NITROGEN 36 mg/dL 7-21 (BEAKER) (test code = 354) CREATININE (BEAKER) (test 1.95 mg/dL 0.57-1.25 Specim en slightly code = 358) hemolyzed GLUCOSE RANDOM (BEAKER) 311 mg/dL 70-105 (test code = 652) CALCIUM (BEAKER) (test 8.5 mg/dL 8.4-10.2 code = 697) EGFR (BEAKER) (test code 36 mL/min/1.73 sq m EST IMATED GFR IS NOT = 1092) ACCURATE CREA TININE CLEARANCE IN PRE DICTING GLOMERULAR FILTR ATION RATE. ESTIMATED GFR IS NOT APPLICABLE F OR DIALYSIS PATIENT S. HEMOGLOBIN [id number] 20:17:00 Test Item Value Reference Range Comments HEMOGLOBIN A1C (BEAKER) (test code = 368) 11.9 % 4.3-6. 1 TROPONIN [id number] 19:52:00 Test Item Value Reference Range Comments TROPONIN I (BEAKER) (test code = 397) < ng/mL 0.00-0.03 Troponin I (TnI) levels [...] acute neurological disease, and persistent tachyarrhythmia.HEPATIC FUNCTION [id number] 19:46:00 Test Item Value Reference Range Comments TOTAL PROTEIN (BEAKER) (test 6.3 gm/dL 6.0-8.3 Spe cimen slightly hemolyzed code = 770) ALBUMIN (BEAKER) (test code = 2.8 g/dL 3.5-5.0 Sp ecimen slightly hemolyzed 1145) BILIRUBIN TOTAL (BEAKER) (test 0.4 mg/dL 0.2-1.2 S pecimen slightly hemolyzed code = 377) BILIRUBIN DIRECT (BEAKER) (test 0.1 mg/dL 0.1-0.5 Specimen slightly hemolyzed code = 706) ALKALINE PHOSPHATASE (BEAKER) 104 U/L 40-150 (test code = 346) AST (SGOT) (BEAKER) (test code 29 U/L 5-34 S pecimen slightly hemolyzed = 353) ALT (SGPT) (BEAKER) (test code 23 U/L 6-55 S pecimen slightly hemolyzed = 347) Specimen moderately [id number] 19:32:00 Test Item Value Reference Range Comments PARTIAL THROMBOPLASTIN TIME (BEAKER) (test code 28.1 seconds 22.5-36.0 = 760) PROTHROMBIN TIME/[id number] 19:31:00 Test Item Value Reference Range Comments PROTIME (BEAKER) (test code = 759) 11.4 seconds 11.9-14.2 INR (BEAKER) (test code = 370) 0.9 <=5.9 Effective 09/23/2018: PT Reference Range ChangeNew: 11.9-14.2 Previous: 11.7- 14.7RECOMMENDED COUMADIN/WARFARIN INR THERAPY RANGESSTANDARD DOSE: 2.0-3.0 Includes: PROPHYLAXIS for venous thrombosis, systemic embolization; TREATMENT for venous thrombosis and/or pulmonary embolus.HIGH RISK: Target INR is2.5-3.5 for patients wiht mechanical heart valves.CBC W/PLT COUNT & AUTO [id number] 19:25:00 Test Item Value Reference Range Comments WHITE BLOOD CELL COUNT (BEAKER) (test code = 5.2 K/ L 3.5 -10.5 775) RED BLOOD CELL COUNT (BEAKER) (test code = 761) 3.84 M/ L 4.63-6.08 HEMOGLOBIN (BEAKER) (test code = 410) 12.2 GM/DL 13.7-17.5 HEMATOCRIT (BEAKER) (test code = 411) 34.6 % 40.1-51.0 MEAN CORPUSCULAR VOLUME (BEAKER) (test code = 90.1 fL 79 .0-92.2 753) MEAN CORPUSCULAR HEMOGLOBIN (BEAKER) (test code 31.8 pg 25.7-32.2 = 751) MEAN CORPUSCULAR HEMOGLOBIN CONC (BEAKER) (test 35.3 GM/DL 32.3-36.5 code = 752) RED CELL DISTRIBUTION WIDTH (BEAKER) (test code 13.6 % 11.6-14.4 = 412) PLATELET COUNT (BEAKER) (test code = 756) 140 K/CU MM 150-45 0 MEAN PLATELET VOLUME (BEAKER) (test code = 754) 11.8 fL 9.4-12.4 NUCLEATED RED BLOOD CELLS (BEAKER) (test code = 0 /100 WBC 0-0 413) NEUTROPHILS RELATIVE PERCENT (BEAKER) (test code 54 % = 429) LYMPHOCYTES RELATIVE PERCENT (BEAKER) (test code 36 % = 430) MONOCYTES RELATIVE PERCENT (BEAKER) (test code = 5 % 431) EOSINOPHILS RELATIVE PERCENT (BEAKER) (test code 3 % = 432) BASOPHILS RELATIVE PERCENT (BEAKER) (test code = 1 % 437) NEUTROPHILS ABSOLUTE COUNT (BEAKER) (test code = 2.82 K/ L 1.78-5.38 670) LYMPHOCYTES ABSOLUTE COUNT (BEAKER) (test code = 1.89 K/ L 1.32-3.57 414) MONOCYTES ABSOLUTE COUNT (BEAKER) (test code = 0.28 K/ L 0 .30-0.82 415) EOSINOPHILS ABSOLUTE COUNT (BEAKER) (test code = 0.17 K/ L 0.04-0.54 416) BASOPHILS ABSOLUTE COUNT (BEAKER) (test code = 0.04 K/ L 0 .01-0.08 417) IMMATURE GRANULOCYTES-RELATIVE PERCENT (BEAKER) 1 % 0-1 (test code = 2801) POCT-GLUCOSE [id number] 17:51:00 Test Item Value Reference Range Comments POC-GLUCOSE METER (BEAKER) 342 mg/dL 70-110 Notif ied HAYLEE BSOS/TESTED AT [facility] (test code = 1538) [address] [facility] [address]
--- OUTSIDE RECORDS SUMMARY | 2019-08-07 07:57 | XMS REPORT ---
:1965 Author Organization [facility] t Address [address] [place] [address] Care Team Providers Name Role Phone NOBLE [...] (BEAKER) (test 119 mg/dL 70-110 TESTED AT [facility] [address] [facility] code = 1538) [facility] [address] BASIC METABOLIC [id number] 06:16:00 Test Item Value Reference Range Comments [...] PATIENT S. CBC W/PLT COUNT & AUTO [id number] 05:42:00 Test Item Value Reference Range Comments [...] % 0-1 (test code = 2801) POCT-GLUCOSE [id number] 20:34:00 Test Item Value Reference Range Comments POC-GLUCOSE METER (BEAKER) 205 mg/dL 70-110 TESTE D AT [address] (test code = 1538) [facility] [address], CHEST, WITHOUT [id number] 18:24:00FINAL REPORT TECHNIQUE: CT scan of the [...] MDReport Verified Date/Time: 01/10/2019 18:24:57 Reading Location: [facility] C013Y CT Body Reading Room POCT-GLUCOSE [id number] 17:31:00 Test Item Value Reference Range Comments POC-GLUCOSE METER (BEAKER) 183 mg/dL 70-110 TESTE D AT [address] (test code = 1538) [facility] [address], BRAIN, WITHOUT [id number] 14:47:00FINAL REPORT CT, BRAIN, WITHOUT CONTRAST INDICATION: [...] Lubna Lr MDReport Verified Date/Time: 01/10/2019 14:47:25 -[id number] 11:36:00 Test Item Value Reference Range Comments [...] within 95-100% range.RAD, CHEST, 1 VIEW, NON [id number] 08:17:00Reason for exam:->chest painShould this be performed [...] MDReport Verified Date/Time: 01/10/2019 08:17:19 Reading Location: [address] Ortho Consult Reading Room TROPONIN [id number] 07:02:00 Test Item Value Reference Range Comments [...] = 130 pg/mL 0-100 700) BASIC METABOLIC [id number] 06:51:00 Test Item Value Reference Range Comments [...] PATIENT S. CBC W/PLT COUNT & AUTO [id number] 06:27:00 Test Item Value Reference Range Comments [...] % 0-1 (test code = 2801) TROPONIN [id number] 23:52:00 Test Item Value Reference Range Comments [...] acidosis, acute neurological disease, and persistent tachyarrhythmia.POCT-GLUCOSE [id number] 22:03:00 Test Item Value Reference Range Comments POC-GLUCOSE METER (BEAKER) 315 mg/dL 70-110 TESTE D AT [address] (test code = 1538) [place] [address] POCT-GLUCOSE [id number] 20:02:00 Test Item Value Reference Range Comments POC-GLUCOSE METER (BEAKER) 250 mg/dL 70-110 TESTE D AT [address] (test code = 1538) [place] [address] TROPONIN [id number] 19:05:00 Test Item Value Reference Range Comments [...] acidosis, acute neurological disease, and persistent tachyarrhythmia.POCT-GLUCOSE [id number] 17:40:00 Test Item Value Reference Range Comments POC-GLUCOSE METER (BEAKER) 246 mg/dL 70-110 TESTE D AT [facility] [address] [facility] (test code = 1538) [place] [address] POCT-GLUCOSE [id number] 08:11:00 Test Item Value Reference Range Comments POC-GLUCOSE METER (BEAKER) 243 mg/dL 70-110 TESTE D AT [facility] [address] [facility] (test code = 1538) [place] [address] BASIC METABOLIC [id number] 05:04:00 Test Item Value Reference Range Comments [...] NOT APPLICABLE F OR DIALYSIS PATIENT S. [id number] 04:56:00 Test Item Value Reference Range Comments PARTIAL THROMBOPLASTIN TIME (BEAKER) (test code 35.0 seconds 22.5-36.0 = 760) CBC W/PLT COUNT & AUTO [id number] 04:48:00 Test Item Value Reference Range Comments [...] % 0-1 (test code = 2801) POCT-GLUCOSE [id number] 22:08:00 Test Item Value Reference Range Comments POC-GLUCOSE METER (BEAKER) 364 mg/dL 70-110 Notif natalie LEACH MD/TESTED AT [facility] (test code = 1538) [address] [facility] [address] POCT-GLUCOSE [id number] 17:05:00 Test Item Value Reference Range Comments POC-GLUCOSE METER (BEAKER) 389 mg/dL 70-110 Notif natalie LEACH MD/TESTED AT [facility] (test code = 1538) [address] [facility] [address] BASIC METABOLIC [id number] 16:28:00 Test Item Value Reference Range Comments [...] NOT APPLICABLE F OR DIALYSIS PATIENT S. [id number] 16:26:00 Test Item Value Reference Range Comments [...] INR is2.5-3.5 for patients wiht mechanical heart valves.[id number] 16:26:00 Test Item Value Reference Range Comments PARTIAL THROMBOPLASTIN TIME (BEAKER) (test code 32.0 seconds 22.5-36.0 = 760) POCT-GLUCOSE [id number] 12:06:00 Test Item Value Reference Range Comments POC-GLUCOSE METER (BEAKER) 321 mg/dL 70-110 Notif natalie LEACH MD/TESTED AT [facility] (test code = 1538) [address] [facility] [address] POCT-GLUCOSE [id number] 08:29:00 Test Item Value Reference Range Comments POC-GLUCOSE METER (BEAKER) 263 mg/dL 70-110 TESTE D AT [facility] [address] [facility] (test code = 1538) [facility] [address] [id number] 04:54:00 Test Item Value Reference Range Comments PARTIAL THROMBOPLASTIN TIME (BEAKER) (test code 31.0 seconds 22.5-36.0 = 760) CBC W/PLT COUNT & AUTO [id number] 04:43:00 Test Item Value Reference Range Comments [...] % 0-1 (test code = 2801) POCT-GLUCOSE [id number] 22:11:00 Test Item Value Reference Range Comments POC-GLUCOSE METER (BEAKER) 319 mg/dL 70-110 Notif natalie LEACH MD/TESTED AT [facility] (test code = 1538) [address] [place] [address] [id number] 20:11:00 Test Item Value Reference Range Comments PARTIAL THROMBOPLASTIN TIME (BEAKER) (test code 33.3 seconds 22.5-36.0 = 760) POCT-GLUCOSE [id number] 18:49:00 Test Item Value Reference Range Comments POC-GLUCOSE METER (BEAKER) 309 mg/dL 70-110 TESTE D AT [address] (test code = 1538) [place] [address] POCT-GLUCOSE [id number] 14:48:00 Test Item Value Reference Range Comments POC-GLUCOSE METER (BEAKER) 161 mg/dL 70-110 TESTE D AT [address] (test code = 1538) [place] [address] POCT-GLUCOSE [id number] 14:46:00 Test Item Value Reference Range Comments POC-GLUCOSE METER (BEAKER) 159 mg/dL 70-110 TESTE D AT [address] (test code = 1538) [place] [address] TROPONIN [id number] 13:58:00 Test Item Value Reference Range Comments [...] failure, acidosis, acute neurological disease, and persistent tachyarrhythmia.[id number] 12:25:00 Test Item Value Reference Range Comments PARTIAL THROMBOPLASTIN TIME (BEAKER) (test code 30.3 seconds 22.5-36.0 = 760) POCT-GLUCOSE [id number] 12:18:00 Test Item Value Reference Range Comments POC-GLUCOSE METER (BEAKER) 168 mg/dL 70-110 TESTE D AT [address] (test code = 1538) [place] [address] POCT-GLUCOSE [id number] 11:06:00 Test Item Value Reference Range Comments POC-GLUCOSE METER (BEAKER) 180 mg/dL 70-110 TESTE D AT [address] (test code = 1538) [place] [address] POCT-GLUCOSE [id number] 10:21:00 Test Item Value Reference Range Comments POC-GLUCOSE METER (BEAKER) 195 mg/dL 70-110 TESTE D AT [address] (test code = 1538) [place] [address] POCT-GLUCOSE [id number] 10:21:00 Test Item Value Reference Range Comments POC-GLUCOSE METER (BEAKER) 180 mg/dL 70-110 TESTE D AT [address] (test code = 1538) [place] [address] POCT-GLUCOSE [id number] 08:06:00 Test Item Value Reference Range Comments POC-GLUCOSE METER (BEAKER) 218 mg/dL 70-110 TESTE D AT [facility] [address] [facility] (test code = 1538) [place] [address] TROPONIN [id number] 07:00:00 Test Item Value Reference Range Comments [...] afterwardsOnce on admission and Daily AM afterwardsPOCT-GLUCOSE [id number] 06:58:00 Test Item Value Reference Range Comments POC-GLUCOSE METER (BEAKER) 248 mg/dL 70-110 TESTE D AT [address] (test code = 1538) [place] [address] [id number] 06:54:00 Test Item Value Reference Range Comments PHOSPHORUS (BEAKER) (test code = 604) 2.5 mg/dL 2.3-4.7 Once on admission and Daily AM afterwardsOnce on admission and Daily AM afterwardsOnce on admission and Daily AM [id number] 06:54:00 Test Item Value Reference Range Comments [...] Daily AM afterwardsCBC W/PLT COUNT & AUTO [id number] 06:42:00 Test Item Value Reference Range Comments [...] 1 % 0-1 (test code = 2801) [id number] 06:28:00 Test Item Value Reference Range Comments PARTIAL THROMBOPLASTIN TIME (BEAKER) (test code 30.6 seconds 22.5-36.0 = 760) POCT-GLUCOSE [id number] 06:01:00 Test Item Value Reference Range Comments POC-GLUCOSE METER (BEAKER) 266 mg/dL 70-110 TESTE D AT [address] (test code = 1538) [place] [address] POCT-GLUCOSE [id number] 04:57:00 Test Item Value Reference Range Comments POC-GLUCOSE METER (BEAKER) 271 mg/dL 70-110 TESTE D AT [address] (test code = 1538) [place] [address] POCT-GLUCOSE [id number] 04:05:00 Test Item Value Reference Range Comments POC-GLUCOSE METER (BEAKER) 308 mg/dL 70-110 Notif natalie LEACH MD/TESTED AT [facility] (test code = 1538) [address] [place] [address] POCT-GLUCOSE [id number] 02:57:00 Test Item Value Reference Range Comments POC-GLUCOSE METER (BEAKER) 343 mg/dL 70-110 Notif natalie LEACH MD/TESTED AT [facility] (test code = 1538) [address] [place] [address] RAD, CHEST, 1 VIEW, NON [id number] 02:27:00Reason for exam:->mediastinal wideningShould this be performed [...] Wilmer Kline Verified Date/Time: 01/07/2019 02:27:45 POCT-GLUCOSE [id number] 01:57:00 Test Item Value Reference Range Comments POC-GLUCOSE METER (BEAKER) 369 mg/dL 70-110 TESTE D AT [address] (test code = 1538) [facility] [address] POCT-GLUCOSE [id number] 01:06:00 Test Item Value Reference Range Comments POC-GLUCOSE METER (BEAKER) 395 mg/dL 70-110 Notif ied HAYLEE BOSS/TESTED AT [facility] (test code = 1538) [address] [place] [address] TROPONIN [id number] 00:36:00 Test Item Value Reference Range Comments [...] (test code = 151 pg/mL 0-100 700) [id number] 00:19:00 Test Item Value Reference Range Comments PARTIAL THROMBOPLASTIN TIME (BEAKER) (test code 28.2 seconds 22.5-36.0 = 760) Prior to initiating heparinPOCT-GLUCOSE [id number] 00:16:00 Test Item Value Reference Range Comments POC-GLUCOSE METER (BEAKER) 413 mg/dL 70-110 TESTE D AT [facility] [address] (test code = 1538) [facility] [address] POCT-GLUCOSE [id number] 23:10:00 Test Item Value Reference Range Comments POC-GLUCOSE METER (BEAKER) 452 mg/dL 70-110 Notif iesterling LEACH MD/TESTED AT [facility] (test code = 1538) [address] [place] [address] POCT-GLUCOSE [id number] 22:06:00 Test Item Value Reference Range Comments POC-GLUCOSE METER (BEAKER) 383 mg/dL 70-110 TESTE D AT [address] (test code = 1538) [place] [address], BRAIN, WITHOUT [id number] 21:38:00FINAL REPORT CT Head without contrast CLINICAL [...] Kline Verified Date/Time: 01/06/2019 21:38:52 BASI METABOLIC [id number] 21:12:00 Test Item Value Reference Range Comments [...] APPLICABLE F OR DIALYSIS PATIENT S. HEMOGLOBIN [id number] 20:17:00 Test Item Value Reference Range Comments HEMOGLOBIN A1C (BEAKER) (test code = 368) 11.9 % 4.3-6. 1 TROPONIN [id number] 19:52:00 Test Item Value Reference Range Comments [...] acute neurological disease, and persistent tachyarrhythmia.HEPATIC FUNCTION [id number] 19:46:00 Test Item Value Reference Range Comments [...] pecimen slightly hemolyzed = 347) Specimen moderately [id number] 19:32:00 Test Item Value Reference Range Comments PARTIAL THROMBOPLASTIN TIME (BEAKER) (test code 28.1 seconds 22.5-36.0 = 760) PROTHROMBIN TIME/[id number] 19:31:00 Test Item Value Reference Range Comments [...] mechanical heart valves.CBC W/PLT COUNT & AUTO [id number] 19:25:00 Test Item Value Reference Range Comments [...] % 0-1 (test code = 2801) POCT-GLUCOSE [id number] 17:51:00 Test Item Value Reference Range Comments POC-GLUCOSE METER (BEAKER) 342 mg/dL 70-110 Notif ied HAYLEE BOSS/TESTED AT [facility] (test code = 1538) [address] [facility] [address]
[2019-08-07] MEDS: MOXIFLOXACIN HCL 0.5% 3ML OPTH OPTH ONE ×4 (08:00→08:50)
[2019-08-07] MEDS ORDERED: NA CHLORIDE 0.9% 500 ML ONE (08:01)
[2019-08-07 08:21] LABS: Potassium 3.3 mmol/L (3.5-5.1)
[2019-08-07] MEDS ORDERED: TOBRADEX 0.3-0.1% OPTH OINTMENT ONE (08:24)
[2019-08-07] MEDS ORDERED: BALANCED SALT IRRIG PLAIN 500 ML BTL IRR ONE (08:24)
[2019-08-07] MEDS ORDERED: LIDOCAINE 1% W/EPI 1:100,000 MDV 20 ML VIAL ONE (08:24)
[2019-08-07] MEDS ORDERED: BSS OPTHALMIC SOL 15 ML BOT OPTH ONE (08:24)
[2019-08-07] MEDS ORDERED: POVIDONE-IODINE 5% EYE DROPS ONE (08:25)
[2019-08-07] MEDS ORDERED: FENTANYL CITR 100 MCG/2 ML ONE (08:35)
[2019-08-07] MEDS ORDERED: INSULIN -REGULAR HUMAN 50 UNIT/0.5 ML ML ONE (08:35)
[2019-08-07] MEDS ORDERED: MIDAZOLAM HCL 2 MG/2 ML INJ ONE (08:35)
[2019-08-07] MEDS: KETOROLAC OPTHALMIC 5 ML BOT ONE ×2 (08:35→08:50)
[2019-08-07] MEDS ORDERED: propofoL 200 MG/20 ML VIAL IV ONE (08:35)
[2019-08-07] MEDS ORDERED: LIDOCAINE 1% MPF 5 ML VIAL ONE (08:35)
[2019-08-07] MEDS ORDERED: ONDANSETRON 4 MG/2 ML VIAL ONE (08:38)
[2019-08-07] MEDS ORDERED: dexAMETHasone 4 MG/ML VIAL ONE (08:39)
[2019-08-07] MEDS ORDERED: Phenylephrine HCl 10 MG/ML 1 ML VIAL ONE (08:40)
[2019-08-07] MEDS ORDERED: EPHEDRINE SULF 50 MG/ML VIAL ONE (09:28)
[2019-08-07] MEDS: FENTANYL CITR 100 MCG/2 ML ONE ×7 (11:01→11:49)
--- NOTE | 2019-08-07 11:51 | OP ---
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 Procedure Performed: Implantation of Ahmed valve with scleral patch overlay, left eye. Description Of Procedure: After being properly identified in the preoperative holding area, the virginie ent was taken back to the operating room where a time-out was performed. The patient was then preppe d and draped in the normal sterile fashion. Examination of the eye underneath the operating microsco pe revealed a steamy cornea with loosely attached epithelium and small bullous keratopathy. Grasping the globe with a pair of 0.12 forceps, a conjunctival peritomy was performed in the superior tempora l quadrant and the conjunctiva and Tenon's dissected in order to allow placement of the Ahmed valve. Light electrocautery was performed in order to achieve hemostasis and thereafter the Ahmed implant w as opened and placed into the pocket for resizing. This was found to be adequate, confirming with a caliper, set to 7 mm measuring back from the limbus. Then, the Ahmed valve was removed slightly. Tw o 10-0 nylon sutures were pre-placed through the anterior eyelid and then the Ahmed valve placed back into the pocket and the sutures affixed to the sclera approximately 7 mm posterior to the limbus, ag ain measured with a caliper. These were tied into position, and the Ahmed valve secured. I need to mention that I did, prior to placing the sutures, prime the Ahmed valve with BSS and a 27-gauge cannu la resulting in good flow. The tube was thereafter drawn over the cornea and trimmed to an appropria te length. Using a 1 mm side-port blade just posterior to the limbus, an incision was made into the anterior chamber and thereafter the tube threaded in. This was still slightly long, so the tube was removed and resized and then placed in with an appropriate length visible. The 10-0 suture was used to secure the tube into position from migration with 2 interrupted throws of the same 10-0 nylon. Th ereafter, a human sclera 7 mm x 7 mm patch was opened. The anterior edge toward the limbus beveled d own in order to reduce any dellen formation and then this was secured again using the nylon sutures i n each of the quadrants. The conjunctiva was then draped over and closed using two 9-0 Vicryl suture s. An additional paracentesis port was made in the anterior chamber, irrigated with BSS, and a notic eable increase in the conjunctival bleb was seen. There was a small amount of leakage temporally and an additional 9-0 Vicryl suture was placed at that time. There was a small amount of heme noted in the superior temporal quadrant, but it was non expanding. The pressure was felt to be noticeably low er and estimated to be approximately 4. Thereafter, the lid speculum and drapes were removed. The p atient was patched over TobraDex ointment and awoken from general anesthesia and taken to the postope rative holding area and in stable condition having tolerated the procedure well. There were no compl ications. Estimated Blood Loss: Less than 1 mL. Specimens: No specimens sent. Drains: Placed as above He is to follow up with myself, Dr. Joey John at the [facility] tomorrow morning. TAN/DOMINIC Voice ID: [id number] Report ID: [id number]
[2019-08-07 11:55] VITALS: BP 187/90; TEMP 97.9; O2SAT 98
[2019-08-07] MEDS ORDERED: INSULIN -REGULAR HUMAN 50 UNIT/0.5 ML ML IV ONE (13:15)
== END 2019-08-07 12:15 | disposition home health service (06) ==
LOC: OR 07:40
PROVIDERS: ATTEND Ophthalmology
PROC: 08133J4 Bypass Left Anterior Chamber to Sclera with Synthetic Substitute, Percutaneous Approach (ICD-10-PCS; principal; 2019-08-07 09:00)
DX: H40.89 Other specified glaucoma (principal); I11.0 Hypertensive heart disease with heart failure; I50.9 Heart failure, unspecified; I25.10 Atherosclerotic heart disease of native coronary artery without angina pectoris; N28.9 Disorder of kidney and ureter, unspecified; G62.9 Polyneuropathy, unspecified; K74.60 Unspecified cirrhosis of liver; R56.9 Unspecified convulsions; Z72.0 Tobacco use; Z88.6 Allergy status to analgesic agent; Z95.5 Presence of coronary angioplasty implant and graft; Z86.73 Personal history of transient ischemic attack (TIA), and cerebral infarction without residual deficits
CPT/HCPCS: 80048; 36415; 82947; 66180; J2704; J2250; J3010 ×2; J7040; J2405; J2370

== ENCOUNTER 2019-10-14 17:16 | Emergency (ER) | payer OTHER ==
--- OUTSIDE RECORDS SUMMARY | 2019-10-14 17:21 | XMS REPORT | Clinical Summary ---
:1965 Author Organization [facility] Address [address] [place] [address] Care Team Providers Name Role Phone Ceci Primary Care Provider Unavailable Allergies Active Allergy Reactions Severity Noted Date Comments Codeine Hives High 12/01/2016 Hydrocodone-Acetaminophen Hives, Itching 06/25/2013 Ketorolac Hallucinations High 06/12/2019 Morphine Hives High 07/11/2017 Medications Medication Sig Dispensed Refills Start End Date Status Date insulin Inject twice a 100 each 2 Activ e syringe-needle day 8 U-100 (BD INSULIN SYRINGE ULTRA-FINE) 1 mL 31 gauge x 5/16 syringe traMADol (ULTRAM) Take 50 mg by 0 Active 50 mg tablet mouth every 6 7 (six) hours as needed. gabapentin Take 1,800 mg 0 03/20/20 Disco ntinued (NEURONTIN) 300 mg by mouth every 20 (Stop Taking at capsule morning. Discharge) atenolol (TENORMIN) Take 50 mg by 0 /20/ 20 Discontinued 50 MG tablet mouth daily. 20 (Reo rder) citalopram (CeleXA) Take 20 mg by 0 03/20/ 20 Discontinued 20 MG tablet mouth daily. 20 (Sto p Taking at Discharge) lisinopril Take 20 mg by 0 03/20/20 Disco ntinued (PRINIVIL,ZESTRIL) mouth daily. 20 (Stop Taking at 20 mg tablet Dischar ge) clopidogrel Take 75 mg by 0 03/20/20 Disc ontinued (PLAVIX) 75 mg mouth daily. 20 (S top Taking at tablet Discharge) gabapentin Take 1,200 mg 0 03/20/20 Disco ntinued (NEURONTIN) 300 mg by mouth every 20 (Stop Taking at capsule evening. Discharge) ibuprofen Take 400 mg by 0 07/16/19 Disco ntinued (ADVIL,MOTRIN) 200 mouth every 6 20 (Stop Taking at MG tablet (six) hours as Disch arge) needed for mild pain. insulin 70/30 NPH Inject 80 20 mL 2 07/16/19 Di scontinued and regular human units twice a 8 20 (Stop Taking at (NovoLIN 70/30 day with food D ischarge) U-100 Insulin) 100 unit/mL (70-30) injection aspirin 325 MG Take 325 mg by 0 07/16/19 Discontinued tablet mouth daily. 20 (Stop T aking at Discharge) simvastatin (ZOCOR) Take 40 mg by 0 Discontinued 80 MG tablet mouth nightly. 6 20 (R eorder) atenolol (TENORMIN) Take 50 mg by 0 Discontinued 50 MG tablet mouth daily. 7 20 (Sto p Taking at Discharge) citalopram (CeleXA) Take 20 mg by 0 Discontinued 20 MG tablet mouth daily. 7 20 (Reo rder) ergocalciferol Take 1 capsule 4 capsule 11 04/04/20 (VITAMIN D2) 50,000 (50,000 Units 8 19 unit capsule total) by mouth once a week. atenoloL (TENORMIN) Take 1 tablet 30 tablet 2 50 MG tablet (50 mg total) 0 20 by mouth daily for 30 days. citalopram (CeleXA) Take 1 tablet 30 tablet 2 20 MG tablet (20 mg total) 0 20 by mouth daily for 30 days. gabapentin Take 0.5 15 tablet 2 08/15/19 (NEURONTIN) 600 mg tablets (300 0 20 tablet mg total) by mouth nightly for 30 days. simvastatin (ZOCOR) Take 0.5 15 tablet 2 08/15/19 80 MG tablet tablets (40 mg 0 20 total) by mouth nightly for 30 days. brimonidine Administer 1 4.5 mL 1 08/15/19 Expir ed (ALPHAGAN) 0.15 % drop into the 0 20 ophthalmic solution left eye every 8 (eight) hours for 30 days. calcium Take 1 capsule 90 capsule 3 08/15/19 Expi red acetate,phosphat (667 mg total) 0 20 bind, (PHOSLO) 667 by mouth 3 mg capsule (three) times a day with meals for 30 days. dorzolamide-timolol Administer 1 6 each 2 0 (COSOPT) 2-0.5 % drop into the 0 20 dropperette left eye 2 (two) times a day for 30 days. insulin lispro Inject 5 Units 10 mL 12 08/15/19 (HumaLOG) 100 under the skin 0 20 unit/mL injection nightly for 30 days. insulin lispro Inject 6 Units 10 mL 12 08/16/19 (HumaLOG) 100 under the skin 0 20 unit/mL injection daily with breakfast for 30 days. insulin lispro Inject 6 Units 10 mL 12 08/15/19 (HumaLOG) 100 under the skin 0 20 unit/mL injection daily before dinner for 30 days. insulin lispro Inject 6 Units 10 mL 12 08/15/19 (HumaLOG) 100 under the skin 0 20 unit/mL injection daily before lunch for 30 days. insulin NPH Inject 20 10 mL 12 08/15/19 (HumuLIN-N) 100 Units under 0 20 unit/mL injection the skin daily for 30 days. isosorbide Take 1 tablet 30 tablet 2 08/15/19 Expir ed mononitrate (IMDUR) (60 mg total) 0 20 60 MG 24 hr tablet by mouth daily for 30 days. latanoprost Administer 1 1.5 mL 2 08/15/19 Expir ed (XALATAN) 0.005 % drop into the 0 20 ophthalmic solution left eye nightly for 30 days. levETIRAcetam Take 1 tablet 60 tablet 2 08/15/19 Ex pired (KEPPRA) 250 MG (250 mg total) 0 20 tablet by mouth 2 (two) times a day for 30 days. methocarbamoL Take 1 tablet 90 tablet 1 08/15/19 Ex pired (ROBAXIN) 500 MG (500 mg total) 0 20 tablet by mouth 3 (three) times a day as needed for muscle spasms for up to 30 days. nystatin Apply 260 g 1 08/15/19 (MYCOSTATIN) topically 2 0 20 100,000 unit/gram (two) times a powder day for 30 days. pantoprazole Take 1 tablet 30 tablet 2 08/16/19 Exp ired (PROTONIX) 40 MG EC (40 mg total) 0 20 tablet by mouth daily for 30 days. polyethylene glycol Take 17 g by 30 packet 2 0 (MIRALAX) 17 gram mouth daily 0 20 packet for 30 days. riFAXimin (XIFAXAN) Take 1 tablet 60 tablet 3 550 mg tablet (550 mg total) 0 20 by mouth 2 (two) times a day for 30 days. sevelamer (RENVELA) Take 1 tablet 90 tablet 2 800 mg tablet (800 mg total) 0 20 by mouth 3 (three) times a day with meals for 30 days. mineral Administer to 1 Tube 2 08/15/19 d oil/petrolatum,whit both eyes 0 20 e (artificial nightly as tears) ointment needed (itching/dry eyes) for up to 30 days. insulin lispro Inject 3 Units 10 mL 12 08/15/19 (HumaLOG) 100 under the skin 0 20 unit/mL injection nightly for 30 days. 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 Cirrhosis 12/01/2016 Hypertriglyceridemia 12/01/2016 Depression 12/01/2016 Encounters Date Type Specialty Care Team Description 08/09/2019 Telephone Ophthalmology Barbi Suarez MD 07/19/2019 Patient Outreach Quality Ana Paula Martin RN 07/19/2019 Telephone Ophthalmology Barbi Suarez MD 07/03/2019 Documentation General Internal Lupe, Medicine HAYLEE Tellez 07/02/2019 Telephone Ophthalmology Jennifer Tyler MD 07/01/2019 Ophth Exam Ophthalmology Shea Whitehead MD 07/01/2019 Telephone Ophthalmology Dana Llamas MA 06/12/2019 Hospital Encounter General Internal Guillermo Jeffery Acute renal failure, unspecified acute renal failure type (HCC) (Primary Dx); - Medicine MD Ryan Tachycardia; 07/16/2019 Tomi, Chest pain, uns pecified type; Milton aguilera Sr., MD Chronic hyperte nsion; Coronary arteri osclerosis due to lipid rich plaque; Controlled type 2 diabetes mellitus with other specified complication, without long-term current use of insulin (HCC); Nausea vomiting and diarrhea; Hyperglycemia; Cirrhosis of li [place]oreto without ascites, unspecified hepatic cirrhosis type (HCC); Essential hyper tension; Coronary artery disease involving alatna coronary artery of alatna heart with angina pectoris (HCC); Current mild ep isode of major depressive disorder without prior episode (HCC); 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); Diabetic periph eral neuropathy (HCC); Diarrhea, unspe cified type; Edema of left o rbit; Hypertriglyceri demia; Armenta's palsy 01/05/2019 Intake Access after 10/13/2018 Family History Medical History Relation Name Comments [...] Sign Reading Time Taken Comments Blood Pressure 160/80 07/16/2019 12:27 PM CDT Pulse 64 07/16/2019 12:27 PM CDT Temperature 36.6 C (97.9 F) 07/16/2019 12:27 PM CDT Respiratory Rate 18 07/16/2019 12:27 PM CDT Oxygen Saturation 100% 07/16/2019 12:27 PM CDT Inhaled Oxygen Concentration - - Weight 96.2 kg (212 lb) 07/06/2019 1:11 PM CDT Height 170.2 cm (5' 7") 07/06/2019 1:11 PM CDT Body Mass Index 33.2 07/06/2019 1:11 PM CDT Plan of Treatment Health Maintenance Due Date Last Done Comments DIABETIC FOOT EXAM 07/30/1977 COLONOSCOPY SCREENING 07/30/2017 SHINGLES VACCINES (#1) 07/30/2017 INFLUENZA VACCINE 11/27/2019 DIABETIC RETINAL EYE EXAM 06/30/2021 07/01/2019, 07/01/2019 , 07/01/2019, Additional history exists Implants Implanted Type Area Jackhammer Operator Device Shelf Model / Identifier Expiration Serial / Date Lot Orthopedic Orthopedic Surgical Surgical Implants Implants Procedures Procedure Name Priority Date/Time Associated Comments Diagnosis POC GLUCOSE Routine 07/16/2019 12:29 Results for this PM CDT procedure are i n the results section. POC GLUCOSE Routine 07/16/2019 8:40 Results for this AM CDT procedure are i n the results section. ESTIMATED GFR Routine 07/16/2019 4:00 Results fo r this AM CDT procedure are i n the results section. PHOSPHORUS LEVEL Routine 07/16/2019 4:00 Results for this AM CDT procedure are i n the results section. BASIC METABOLIC PANEL Routine 07/16/2019 4:00 Re sults for this AM CDT procedure are i n the results section. HEMODIALYSIS Routine 07/16/2019 12:05 AM CDT POC GLUCOSE Routine 07/15/2019 9:51 Results for this PM CDT procedure are i n the results section. POC GLUCOSE Routine 07/15/2019 4:56 Results for this PM CDT procedure are i n the results section. POC GLUCOSE Routine 07/15/2019 11:31 Results for this AM CDT procedure are i n the results section. POC GLUCOSE Routine 07/15/2019 7:55 Results for this AM CDT procedure are i n the results section. ESTIMATED GFR Routine 07/15/2019 5:30 Results fo r this AM CDT procedure are i n the results section. BASIC METABOLIC PANEL Routine 07/15/2019 5:30 Re sults for this AM CDT procedure are i n the results section. HC COMPLETE BLD COUNT Routine 07/15/2019 5:30 Re sults for this W/AUTO DIFF AM CDT procedure are i n the results section. POC GLUCOSE Routine 07/14/2019 9:08 Results for this PM CDT procedure are i n the results section. POC GLUCOSE Routine 07/14/2019 4:55 Results for this PM CDT procedure are i n the results section. POC GLUCOSE Routine 07/14/2019 1:49 Results for this PM CDT procedure are i n the results section. POC GLUCOSE Routine 07/14/2019 11:48 Results for this AM CDT procedure are i n the results section. HEMODIALYSIS Routine 07/14/2019 9:13 AM CDT POC GLUCOSE Routine 07/14/2019 8:13 Results for this AM CDT procedure are i n the results section. ESTIMATED GFR Routine 07/14/2019 5:10 Results fo r this AM CDT procedure are i n the results section. HC COMPLETE BLD COUNT Routine 07/14/2019 5:10 Re sults for this W/AUTO DIFF AM CDT procedure are i n the results section. PHOSPHORUS LEVEL Routine 07/14/2019 5:10 Results for this AM CDT procedure are i n the results section. MAGNESIUM LEVEL Routine 07/14/2019 5:10 Results for this AM CDT procedure are i n the results section. BASIC METABOLIC PANEL Routine 07/14/2019 5:10 Re sults for this AM CDT procedure are i n the results section. POC GLUCOSE Routine 07/14/2019 2:44 Results for this AM CDT procedure are i n the results section. POC GLUCOSE Routine 07/13/2019 9:27 Results for this PM CDT procedure are i n the results section. POC GLUCOSE Routine 07/13/2019 4:22 Results for this PM CDT procedure are i n the results section. POC GLUCOSE Routine 07/13/2019 1:08 Results for this PM CDT procedure are i n the results section. POC GLUCOSE Routine 07/13/2019 7:55 Results for this AM CDT procedure are i n the results section. ESTIMATED GFR Routine 07/13/2019 3:25 Results fo r this AM CDT procedure are i n the results section. PHOSPHORUS LEVEL Routine 07/13/2019 3:25 Results for this AM CDT procedure are i n the results section. MAGNESIUM LEVEL Routine 07/13/2019 3:25 Results for this AM CDT procedure are i n the results section. BASIC METABOLIC PANEL Routine 07/13/2019 3:25 Re sults for this AM CDT procedure are i n the results section. POC GLUCOSE Routine 07/12/2019 9:00 Results for this PM CDT procedure are i n the results section. POC GLUCOSE Routine 07/12/2019 5:06 Results for this PM CDT procedure are i n the results section. POC GLUCOSE Routine 07/12/2019 4:06 Results for this PM CDT procedure are i n the results section. POC GLUCOSE Routine 07/12/2019 2:25 Results for this PM CDT procedure are i n the results section. POC GLUCOSE Routine 07/12/2019 12:07 Results for this PM CDT procedure are i n the results section. HEMODIALYSIS Routine 07/12/2019 8:45 AM CDT POC GLUCOSE Routine 07/12/2019 8:44 Results for this AM CDT procedure are i n the results section. ESTIMATED GFR Routine 07/12/2019 4:00 Results fo r this AM CDT procedure are i n the results section. PHOSPHORUS LEVEL Routine 07/12/2019 4:00 Results for this AM CDT procedure are i n the results section. MAGNESIUM LEVEL Routine 07/12/2019 4:00 Results for this AM CDT procedure are i n the results section. BASIC METABOLIC PANEL Routine 07/12/2019 4:00 Re sults for this AM CDT procedure are i n the results section. POC GLUCOSE Routine 07/11/2019 9:23 Results for this PM CDT procedure are i n the results section. POC GLUCOSE Routine 07/11/2019 4:56 Results for this PM CDT procedure are i n the results section. POC GLUCOSE Routine 07/11/2019 4:31 Results for this PM CDT procedure are i n the results section. POC GLUCOSE Routine 07/11/2019 11:23 Results for this AM CDT procedure are i n the results section. CT CHEST WO CONTRAST Routine 07/11/2019 9:40 Res ults for this AM CDT procedure are i n the results section. POC GLUCOSE Routine 07/11/2019 8:29 Results for this AM CDT procedure are i n the results section. HC COMPLETE BLD COUNT Routine 07/11/2019 5:45 Re sults for this W/AUTO DIFF AM CDT procedure are i n the results section. ESTIMATED GFR Routine 07/11/2019 4:00 Results fo r this AM CDT procedure are i n the results section. PHOSPHORUS LEVEL Routine 07/11/2019 4:00 Results for this AM CDT procedure are i n the results section. MAGNESIUM LEVEL Routine 07/11/2019 4:00 Results for this AM CDT procedure are i n the results section. BASIC METABOLIC PANEL Routine 07/11/2019 4:00 Re sults for this AM CDT procedure are i n the results section. POC GLUCOSE Routine 07/11/2019 12:11 Results for this AM CDT procedure are i n the results section. POC GLUCOSE Routine 07/10/2019 10:12 Results for this PM CDT procedure are i n the results section. POC GLUCOSE Routine 07/10/2019 5:24 Results for this PM CDT procedure are i n the results section. ESTIMATED GFR Routine 07/10/2019 1:40 Results fo r this PM CDT procedure are i n the results section. TOTAL IRON BINDING Routine 07/10/2019 1:40 Resul ts for this CAPACITY PM CDT procedure are i n the results section. FERRITIN LEVEL Routine 07/10/2019 1:40 Results f or this PM CDT procedure are i n the results section. HC COMPLETE BLD COUNT Routine 07/10/2019 1:40 Re sults for this W/AUTO DIFF PM CDT procedure are i n the results section. PHOSPHORUS LEVEL Routine 07/10/2019 1:40 Results for this PM CDT procedure are i n the results section. MAGNESIUM LEVEL Routine 07/10/2019 1:40 Results for this PM CDT procedure are i n the results section. BASIC METABOLIC PANEL Routine 07/10/2019 1:40 Re sults for this PM CDT procedure are i n the results section. POC GLUCOSE Routine 07/10/2019 12:34 Results for this PM CDT procedure are i n the results section. HEMODIALYSIS Routine 07/10/2019 11:22 AM CDT POC GLUCOSE Routine 07/10/2019 8:16 Results for this AM CDT procedure are i n the results section. POC GLUCOSE Routine 07/09/2019 9:45 Results for this PM CDT procedure are i n the results section. POC GLUCOSE Routine 07/09/2019 4:49 Results for this PM CDT procedure are i n the results section. FL MODIFIED BARIUM Routine 07/09/2019 1:51 Resul ts for this SWALLOW PM CDT procedure are i n the results section. POC GLUCOSE Routine 07/09/2019 12:22 Results for this PM CDT procedure are i n the results section. POC GLUCOSE Routine 07/09/2019 8:03 Results for this AM CDT procedure are i n the results section. ESTIMATED GFR Routine 07/09/2019 4:00 Results fo r this AM CDT procedure are i n the results section. PHOSPHORUS LEVEL Routine 07/09/2019 4:00 Results for this AM CDT procedure are i n the results section. MAGNESIUM LEVEL Routine 07/09/2019 4:00 Results for this AM CDT procedure are i n the results section. BASIC METABOLIC PANEL Routine 07/09/2019 4:00 Re sults for this AM CDT procedure are i n the results section. POC GLUCOSE Routine 07/08/2019 9:16 Results for this PM CDT procedure are i n the results section. POC GLUCOSE Routine 07/08/2019 4:19 Results for this PM CDT procedure are i n the results section. POC GLUCOSE Routine 07/08/2019 1:42 Results for this PM CDT procedure are i n the results section. POC GLUCOSE Routine 07/08/2019 7:57 Results for this AM CDT procedure are i n the results section. ESTIMATED GFR Routine 07/08/2019 4:00 Results fo r this AM CDT procedure are i n the results section. PHOSPHORUS LEVEL Routine 07/08/2019 4:00 Results for this AM CDT procedure are i n the results section. MAGNESIUM LEVEL Routine 07/08/2019 4:00 Results for this AM CDT procedure are i n the results section. BASIC METABOLIC PANEL Routine 07/08/2019 4:00 Re sults for this AM CDT procedure are i n the results section. HEPATIC FUNCTION PANEL Routine 07/08/2019 4:00 R esults for this AM CDT procedure are i n the results section. POC GLUCOSE Routine 07/07/2019 9:30 Results for this PM CDT procedure are i n the results section. HYPERSENSITIVITY Routine 07/07/2019 5:30 Results for this PNEUMONITIS II PM CDT procedure are in the results section. HYPERSENSITIVITY Routine 07/07/2019 5:30 Results for this PNEUMONITIS I PM CDT procedure are in the results section. POC GLUCOSE Routine 07/07/2019 5:19 Results for this PM CDT procedure are i n the results section. IMMUNOGLOBULIN G Routine 07/07/2019 4:11 Results for this PM CDT procedure are i n the results section. DNA AB SCREEN Routine 07/07/2019 2:30 Results fo r this PM CDT procedure are i n the results section. CENTROMERE ANTIBODY Routine 07/07/2019 2:30 Resu lts for this PM CDT procedure are i n the results section. SS-B ANTIBODY Routine 07/07/2019 2:30 Results fo r this PM CDT procedure are i n the results section. SS-A ANTIBODY Routine 07/07/2019 2:30 Results fo r this PM CDT procedure are i n the results section. SCL-70 ANTIBODY Routine 07/07/2019 2:30 Results for this PM CDT procedure are i n the results section. ANTI-NEUTROPHILIC Routine 07/07/2019 2:30 Result s for this CYTOPLASMIC ABS PANEL PM CDT proced ure are in the results section. POC GLUCOSE Routine 07/07/2019 12:08 Results for this PM CDT procedure are i n the results section. POC GLUCOSE Routine 07/07/2019 7:41 Results for this AM CDT procedure are i n the results section. ESTIMATED GFR Routine 07/07/2019 4:00 Results fo r this AM CDT procedure are i n the results section. PHOSPHORUS LEVEL Routine 07/07/2019 4:00 Results for this AM CDT procedure are i n the results section. MAGNESIUM LEVEL Routine 07/07/2019 4:00 Results for this AM CDT procedure are i n the results section. BASIC METABOLIC PANEL Routine 07/07/2019 4:00 Re sults for this AM CDT procedure are i n the results section. HEPATIC FUNCTION PANEL Routine 07/07/2019 4:00 R esults for this AM CDT procedure are i n the results section. POC GLUCOSE Routine 07/06/2019 9:21 Results for this PM CDT procedure are i n the results section. CT CARDIAC OVERREAD Routine 07/06/2019 6:20 Resu lts for this PM CDT procedure are i n the results section. POC GLUCOSE Routine 07/06/2019 4:38 Results for this PM CDT procedure are i n the results section. CV CTA CORONARY ARTERIES Routine 07/06/2019 1:32 Results for this W CONTRAST PM CDT procedure are i n the results section. POC GLUCOSE Routine 07/06/2019 12:03 Results for this PM CDT procedure are i n the results section. POC GLUCOSE Routine 07/06/2019 8:25 Results for this AM CDT procedure are i n the results section. ESTIMATED GFR Routine 07/06/2019 5:20 Results fo r this AM CDT procedure are i n the results section. PHOSPHORUS LEVEL Routine 07/06/2019 5:20 Results for this AM CDT procedure are i n the results section. MAGNESIUM LEVEL Routine 07/06/2019 5:20 Results for this AM CDT procedure are i n the results section. BASIC METABOLIC PANEL Routine 07/06/2019 5:20 Re sults for this AM CDT procedure are i n the results section. RHEUMATOID FACTOR Routine 07/06/2019 5:20 Result s for this AM CDT procedure are i n the results section. HIV AG/AB COMBINATION Routine 07/06/2019 5:20 Re sults for this AM CDT procedure are i n the results section. C4 COMPLEMENT COMPONENT Routine 07/06/2019 5:20 Results for this AM CDT procedure are i n the results section. C3 COMPLEMENT COMPONENT Routine 07/06/2019 5:20 Results for this AM CDT procedure are i n the results section. HC COMPLETE BLD COUNT Routine 07/06/2019 5:20 Re sults for this W/AUTO DIFF AM CDT procedure are i n the results section. PROTHROMBIN TIME WITH Routine 07/06/2019 5:20 Re sults for this INR AM CDT procedure are i n the results section. HEPATIC FUNCTION PANEL Routine 07/06/2019 5:20 R esults for this AM CDT procedure are i n the results section. POC GLUCOSE Routine 07/06/2019 4:50 Results for this AM CDT procedure are i n the results section. POC GLUCOSE Routine 07/05/2019 9:41 Results for this PM CDT procedure are i n the results section. POC GLUCOSE Routine 07/05/2019 6:11 Results for this PM CDT procedure are i n the results section. POC GLUCOSE Routine 07/05/2019 4:19 Results for this PM CDT procedure are i n the results section. POC GLUCOSE Routine 07/05/2019 12:39 Results for this PM CDT procedure are i n the results section. TTE COMPLETE, WO Routine 07/05/2019 9:25 Results for this CONTRAST, W DOPPLER AM CDT procedur e are in ([id number]) the results section. POC GLUCOSE Routine 07/05/2019 8:17 Results for this AM CDT procedure are i n the results section. HEPATIC FUNCTION PANEL Routine 07/05/2019 5:14 R esults for this AM CDT procedure are i n the results section. ESTIMATED GFR Routine 07/05/2019 5:14 Results fo r this AM CDT procedure are i n the results section. VANCOMYCIN LEVEL, RANDOM Routine 07/05/2019 5:14 Results for this AM CDT procedure are i n the results section. PHOSPHORUS LEVEL Routine 07/05/2019 5:14 Results for this AM CDT procedure are i n the results section. MAGNESIUM LEVEL Routine 07/05/2019 5:14 Results for this AM CDT procedure are i n the results section. BASIC METABOLIC PANEL Routine 07/05/2019 5:14 Re sults for this AM CDT procedure are i n the results section. POC GLUCOSE Routine 07/04/2019 9:44 Results for this PM CDT procedure are i n the results section. POC GLUCOSE Routine 07/04/2019 5:22 Results for this PM CDT procedure are i n the results section. POC GLUCOSE Routine 07/04/2019 3:52 Results for this PM CDT procedure are i n the results section. POC GLUCOSE Routine 07/04/2019 11:56 Results for this AM CDT procedure are i n the results section. POC GLUCOSE Routine 07/04/2019 7:49 Results for this AM CDT procedure are i n the results section. ESTIMATED GFR Routine 07/04/2019 5:16 Results fo r this AM CDT procedure are i n the results section. PHOSPHORUS LEVEL Routine 07/04/2019 5:16 Results for this AM CDT procedure are i n the results section. MAGNESIUM LEVEL Routine 07/04/2019 5:16 Results for this AM CDT procedure are i n the results section. BASIC METABOLIC PANEL Routine 07/04/2019 5:16 Re sults for this AM CDT procedure are i n the results section. POC GLUCOSE Routine 07/03/2019 9:52 Results for this PM STRUCTURAL ENGINEER procedure are i n the results section. POC GLUCOSE Routine 07/03/2019 4:16 Results for this PM STRUCTURAL ENGINEER procedure are i n the results section. POC GLUCOSE Routine 07/03/2019 12:31 Results for this PM STRUCTURAL ENGINEER procedure are i n the results section. POC GLUCOSE Routine 07/03/2019 11:50 Results for this AM STRUCTURAL ENGINEER procedure are i n the results section. POC GLUCOSE Routine 07/03/2019 7:48 Results for this AM STRUCTURAL ENGINEER procedure are i n the results section. ESTIMATED GFR Routine 07/03/2019 4:00 Results fo r this AM STRUCTURAL ENGINEER procedure are i n the results section. VANCOMYCIN LEVEL, RANDOM Routine 07/03/2019 4:00 Results for this AM STRUCTURAL ENGINEER procedure are i n the results section. PHOSPHORUS LEVEL Routine 07/03/2019 4:00 Results for this AM STRUCTURAL ENGINEER procedure are i n the results section. MAGNESIUM LEVEL Routine 07/03/2019 4:00 Results for this AM STRUCTURAL ENGINEER procedure are i n the results section. BASIC METABOLIC PANEL Routine 07/03/2019 4:00 Re sults for this AM STRUCTURAL ENGINEER procedure are i n the results section. POC GLUCOSE Routine 07/02/2019 9:29 Results for this PM STRUCTURAL ENGINEER procedure are i n the results section. POC GLUCOSE Routine 07/02/2019 6:48 Results for this PM STRUCTURAL ENGINEER procedure are i n the results section. ESTIMATED GFR Routine 07/02/2019 4:05 Results fo r this PM STRUCTURAL ENGINEER procedure are i n the results section. BASIC METABOLIC PANEL Routine 07/02/2019 4:05 Re sults for this PM STRUCTURAL ENGINEER procedure are i n the results section. POC GLUCOSE Routine 07/02/2019 4:03 Results for this PM STRUCTURAL ENGINEER procedure are i n the results section. VENIPUNC NEED PHYS Routine 07/02/2019 2:59 Resul ts for this SKILL,DX OR RX PM STRUCTURAL ENGINEER procedure are in the results section. POC GLUCOSE Routine 07/02/2019 11:52 Results for this AM STRUCTURAL ENGINEER procedure are i n the results section. POC GLUCOSE Routine 07/02/2019 8:44 Results for this AM STRUCTURAL ENGINEER procedure are i n the results section. ESTIMATED GFR Routine 07/02/2019 4:00 Results fo r this AM STRUCTURAL ENGINEER procedure are i n the results section. PHOSPHORUS LEVEL Routine 07/02/2019 4:00 Results for this AM STRUCTURAL ENGINEER procedure are i n the results section. MAGNESIUM LEVEL Routine 07/02/2019 4:00 Results for this AM STRUCTURAL ENGINEER procedure are i n the results section. BASIC METABOLIC PANEL Routine 07/02/2019 4:00 Re sults for this AM STRUCTURAL ENGINEER procedure are i n the results section. VANCOMYCIN LEVEL, RANDOM Routine 07/02/2019 4:00 Results for this AM STRUCTURAL ENGINEER procedure are i n the results section. POC GLUCOSE Routine 07/01/2019 9:39 Results for this PM STRUCTURAL ENGINEER procedure are i n the results section. POC GLUCOSE Routine 07/01/2019 5:04 Results for this PM STRUCTURAL ENGINEER procedure are i n the results section. VANCOMYCIN LEVEL, TROUGH Timed 07/01/2019 2:30 Results for this PM STRUCTURAL ENGINEER procedure are i n the results section. POC GLUCOSE Routine 07/01/2019 12:20 Results for this PM STRUCTURAL ENGINEER procedure are i n the results section. POC GLUCOSE Routine 07/01/2019 8:33 Results for this AM STRUCTURAL ENGINEER procedure are i n the results section. POC GLUCOSE Routine 07/01/2019 4:13 Results for this AM STRUCTURAL ENGINEER procedure are i n the results section. ESTIMATED GFR Routine 07/01/2019 4:00 Results fo r this AM STRUCTURAL ENGINEER procedure are i n the results section. HEPATIC FUNCTION PANEL Routine 07/01/2019 4:00 R esults for this AM STRUCTURAL ENGINEER procedure are i n the results section. PHOSPHORUS LEVEL Routine 07/01/2019 4:00 Results for this AM STRUCTURAL ENGINEER procedure are i n the results section. MAGNESIUM LEVEL Routine 07/01/2019 4:00 Results for this AM STRUCTURAL ENGINEER procedure are i n the results section. BASIC METABOLIC PANEL Routine 07/01/2019 4:00 Re sults for this AM STRUCTURAL ENGINEER procedure are i n the results section. POC GLUCOSE Routine 06/30/2019 11:36 Results for this PM STRUCTURAL ENGINEER procedure are i n the results section. POC GLUCOSE Routine 06/30/2019 9:09 Results for this PM STRUCTURAL ENGINEER procedure are i n the results section. POC GLUCOSE Routine 06/30/2019 5:15 Results for this PM STRUCTURAL ENGINEER procedure are i n the results section. POC GLUCOSE Routine 06/30/2019 2:40 Results for this PM STRUCTURAL ENGINEER procedure are i n the results section. POC GLUCOSE Routine 06/30/2019 11:58 Results for this AM STRUCTURAL ENGINEER procedure are i n the results section. SURGICAL PATHOLOGY Routine 06/30/2019 11:36 Resul ts for this REQUEST AM STRUCTURAL ENGINEER procedure are i n the results section. POC GLUCOSE Routine 06/30/2019 10:00 Results for this AM STRUCTURAL ENGINEER procedure are i n the results section. IR TRANSJUGULAR LIVER Routine 06/30/2019 9:39 Re sults for this BIOPSY AM STRUCTURAL ENGINEER procedure are i n the results section. ESTIMATED GFR Routine 06/30/2019 4:03 Results fo r this AM STRUCTURAL ENGINEER procedure are i n the results section. VANCOMYCIN LEVEL, RANDOM Routine 06/30/2019 4:03 Results for this AM STRUCTURAL ENGINEER procedure are i n the results section. HEPATIC FUNCTION PANEL Routine 06/30/2019 4:03 R esults for this AM STRUCTURAL ENGINEER procedure are i n the results section. PHOSPHORUS LEVEL Routine 06/30/2019 4:03 Results for this AM STRUCTURAL ENGINEER procedure are i n the results section. MAGNESIUM LEVEL Routine 06/30/2019 4:03 Results for this AM STRUCTURAL ENGINEER procedure are i n the results section. BASIC METABOLIC PANEL Routine 06/30/2019 4:03 Re sults for this AM STRUCTURAL ENGINEER procedure are i n the results section. POC GLUCOSE Routine 06/29/2019 9:21 Results for this PM STRUCTURAL ENGINEER procedure are i n the results section. POC GLUCOSE Routine 06/29/2019 4:06 Results for this PM STRUCTURAL ENGINEER procedure are i n the results section. POC GLUCOSE Routine 06/29/2019 12:30 Results for this PM STRUCTURAL ENGINEER procedure are i n the results section. POC GLUCOSE Routine 06/29/2019 8:25 Results for this AM STRUCTURAL ENGINEER procedure are i n the results section. ESTIMATED GFR Routine 06/29/2019 4:54 Results fo r this AM STRUCTURAL ENGINEER procedure are i n the results section. HEPATIC FUNCTION PANEL Routine 06/29/2019 4:54 R esults for this AM STRUCTURAL ENGINEER procedure are i n the results section. VANCOMYCIN LEVEL, RANDOM Routine 06/29/2019 4:54 Results for this AM STRUCTURAL ENGINEER procedure are i n the results section. HC COMPLETE BLD COUNT Routine 06/29/2019 4:54 Re sults for this W/AUTO DIFF AM STRUCTURAL ENGINEER procedure are i n the results section. PHOSPHORUS LEVEL Routine 06/29/2019 4:54 Results for this AM STRUCTURAL ENGINEER procedure are i n the results section. MAGNESIUM LEVEL Routine 06/29/2019 4:54 Results for this AM STRUCTURAL ENGINEER procedure are i n the results section. BASIC METABOLIC PANEL Routine 06/29/2019 4:54 Re sults for this AM STRUCTURAL ENGINEER procedure are i n the results section. POC GLUCOSE Routine 06/28/2019 8:33 Results for this PM STRUCTURAL ENGINEER procedure are i n the results section. POC GLUCOSE Routine 06/28/2019 4:06 Results for this PM STRUCTURAL ENGINEER procedure are i n the results section. POC GLUCOSE Routine 06/28/2019 12:29 Results for this PM STRUCTURAL ENGINEER procedure are i n the results section. HEPATIC FUNCTION PANEL Routine 06/28/2019 12:23 R esults for this PM STRUCTURAL ENGINEER procedure are i n the results section. ECG 12-LEAD STAT 06/28/2019 9:41 Results for this AM STRUCTURAL ENGINEER procedure are i n the results section. POC GLUCOSE Routine 06/28/2019 9:14 Results for this AM STRUCTURAL ENGINEER procedure are i n the results section. HEPATIC FUNCTION PANEL Timed 06/28/2019 9:13 R esults for this AM STRUCTURAL ENGINEER procedure are i n the results section. TROPONIN Timed 06/28/2019 9:13 Results for this AM STRUCTURAL ENGINEER procedure are i n the results section. ESTIMATED GFR Routine 06/28/2019 5:22 Results fo r this AM STRUCTURAL ENGINEER procedure are i n the results section. VANCOMYCIN LEVEL, RANDOM Routine 06/28/2019 5:22 Results for this AM STRUCTURAL ENGINEER procedure are i n the results section. PHOSPHORUS LEVEL Routine 06/28/2019 5:22 Results for this AM STRUCTURAL ENGINEER procedure are i n the results section. MAGNESIUM LEVEL Routine 06/28/2019 5:22 Results for this AM STRUCTURAL ENGINEER procedure are i n the results section. BASIC METABOLIC PANEL Routine 06/28/2019 5:22 Re sults for this AM STRUCTURAL ENGINEER procedure are i n the results section. POC GLUCOSE Routine 06/27/2019 9:03 Results for this PM STRUCTURAL ENGINEER procedure are i n the results section. POC GLUCOSE Routine 06/27/2019 5:04 Results for this PM STRUCTURAL ENGINEER procedure are i n the results section. POC GLUCOSE Routine 06/27/2019 2:07 Results for this PM STRUCTURAL ENGINEER procedure are i n the results section. POC GLUCOSE Routine 06/27/2019 11:57 Results for this AM STRUCTURAL ENGINEER procedure are i n the results section. POC GLUCOSE Routine 06/27/2019 8:26 Results for this AM STRUCTURAL ENGINEER procedure are i n the results section. ECG 12-LEAD Routine 06/27/2019 8:13 Results for this AM STRUCTURAL ENGINEER procedure are i n the results section. ESTIMATED GFR Routine 06/27/2019 5:14 Results fo r this AM STRUCTURAL ENGINEER procedure are i n the results section. VANCOMYCIN LEVEL, RANDOM Routine 06/27/2019 5:14 Results for this AM STRUCTURAL ENGINEER procedure are i n the results section. PHOSPHORUS LEVEL Routine 06/27/2019 5:14 Results for this AM STRUCTURAL ENGINEER procedure are i n the results section. MAGNESIUM LEVEL Routine 06/27/2019 5:14 Results for this AM STRUCTURAL ENGINEER procedure are i n the results section. BASIC METABOLIC PANEL Routine 06/27/2019 5:14 Re sults for this AM STRUCTURAL ENGINEER procedure are i n the results section. POC GLUCOSE Routine 06/26/2019 9:21 Results for this PM STRUCTURAL ENGINEER procedure are i n the results section. POC GLUCOSE Routine 06/26/2019 7:41 Results for this PM STRUCTURAL ENGINEER procedure are i n the results section. POC GLUCOSE Routine 06/26/2019 7:12 Results for this PM STRUCTURAL ENGINEER procedure are i n the results section. ULTRAFILTRATION Routine 06/26/2019 1:39 PM STRUCTURAL ENGINEER POC GLUCOSE Routine 06/26/2019 12:05 Results for this PM STRUCTURAL ENGINEER procedure are i n the results section. POC GLUCOSE Routine 06/26/2019 8:54 Results for this AM STRUCTURAL ENGINEER procedure are i n the results section. ESTIMATED GFR Routine 06/26/2019 6:25 Results fo r this AM STRUCTURAL ENGINEER procedure are i n the results section. VANCOMYCIN LEVEL, RANDOM Routine 06/26/2019 6:25 Results for this AM STRUCTURAL ENGINEER procedure are i n the results section. HC COMPLETE BLD COUNT Routine 06/26/2019 6:25 Re sults for this W/AUTO DIFF AM STRUCTURAL ENGINEER procedure are i n the results section. PHOSPHORUS LEVEL Routine 06/26/2019 6:25 Results for this AM STRUCTURAL ENGINEER procedure are i n the results section. MAGNESIUM LEVEL Routine 06/26/2019 6:25 Results for this AM STRUCTURAL ENGINEER procedure are i n the results section. BASIC METABOLIC PANEL Routine 06/26/2019 6:25 Re sults for this AM STRUCTURAL ENGINEER procedure are i n the results section. POC GLUCOSE Routine 06/25/2019 11:39 Results for this PM STRUCTURAL ENGINEER procedure are i n the results section. HEMODIALYSIS Routine 06/25/2019 9:44 PM STRUCTURAL ENGINEER POC GLUCOSE Routine 06/25/2019 9:14 Results for this PM STRUCTURAL ENGINEER procedure are i n the results section. ESTIMATED GFR Routine 06/25/2019 6:45 Results fo r this PM STRUCTURAL ENGINEER procedure are i n the results section. PHOSPHORUS LEVEL Routine 06/25/2019 6:45 Results for this PM STRUCTURAL ENGINEER procedure are i n the results section. BASIC METABOLIC PANEL Routine 06/25/2019 6:45 Re sults for this PM STRUCTURAL ENGINEER procedure are i n the results section. POC GLUCOSE Routine 06/25/2019 3:45 Results for this PM STRUCTURAL ENGINEER procedure are i n the results section. POC GLUCOSE Routine 06/25/2019 11:30 Results for this AM STRUCTURAL ENGINEER procedure are i n the results section. POC GLUCOSE Routine 06/25/2019 7:47 Results for this AM STRUCTURAL ENGINEER procedure are i n the results section. POC GLUCOSE Routine 06/25/2019 12:05 Results for this AM STRUCTURAL ENGINEER procedure are i n the results section. POC GLUCOSE Routine 06/24/2019 9:12 Results for this PM STRUCTURAL ENGINEER procedure are i n the results section. POC GLUCOSE Routine 06/24/2019 4:22 Results for this PM STRUCTURAL ENGINEER procedure are i n the results section. POC GLUCOSE Routine 06/24/2019 1:17 Results for this PM STRUCTURAL ENGINEER procedure are i n the results section. HEMODIALYSIS Routine 06/24/2019 11:11 AM STRUCTURAL ENGINEER POC GLUCOSE Routine 06/24/2019 7:35 Results for this AM STRUCTURAL ENGINEER procedure are i n the results section. ESTIMATED GFR Routine 06/24/2019 4:00 Results fo r this AM STRUCTURAL ENGINEER procedure are i n the results section. HC COMPLETE BLD COUNT Routine 06/24/2019 4:00 Re sults for this W/AUTO DIFF AM STRUCTURAL ENGINEER procedure are i n the results section. HEPATIC FUNCTION PANEL Routine 06/24/2019 4:00 R esults for this AM STRUCTURAL ENGINEER procedure are i n the results section. PHOSPHORUS LEVEL Routine 06/24/2019 4:00 Results for this AM STRUCTURAL ENGINEER procedure are i n the results section. MAGNESIUM LEVEL Routine 06/24/2019 4:00 Results for this AM STRUCTURAL ENGINEER procedure are i n the results section. BASIC METABOLIC PANEL Routine 06/24/2019 4:00 Re sults for this AM STRUCTURAL ENGINEER procedure are i n the results section. POC GLUCOSE Routine 06/23/2019 6:00 Results for this PM STRUCTURAL ENGINEER procedure are i n the results section. HEMODIALYSIS Routine 06/23/2019 12:21 PM STRUCTURAL ENGINEER POC GLUCOSE Routine 06/23/2019 11:18 Results for this AM STRUCTURAL ENGINEER procedure are i n the results section. IR TUNNELED DIALYSIS Routine 06/23/2019 10:03 Res ults for this CATHETER PLACEMENT AM STRUCTURAL ENGINEER procedure are in the results section. POC GLUCOSE Routine 06/23/2019 9:54 Results for this AM STRUCTURAL ENGINEER procedure are i n the results section. POC GLUCOSE Routine 06/23/2019 8:19 Results for this AM STRUCTURAL ENGINEER procedure are i n the results section. ESTIMATED GFR Routine 06/23/2019 5:30 Results fo r this AM STRUCTURAL ENGINEER procedure are i n the results section. HC COMPLETE BLD COUNT Routine 06/23/2019 5:30 Re sults for this W/AUTO DIFF AM STRUCTURAL ENGINEER procedure are i n the results section. HEPATIC FUNCTION PANEL Routine 06/23/2019 5:30 R esults for this AM STRUCTURAL ENGINEER procedure are i n the results section. PHOSPHORUS LEVEL Routine 06/23/2019 5:30 Results for this AM STRUCTURAL ENGINEER procedure are i n the results section. MAGNESIUM LEVEL Routine 06/23/2019 5:30 Results for this AM STRUCTURAL ENGINEER procedure are i n the results section. BASIC METABOLIC PANEL Routine 06/23/2019 5:30 Re sults for this AM STRUCTURAL ENGINEER procedure are i n the results section. POC GLUCOSE Routine 06/22/2019 9:30 Results for this PM STRUCTURAL ENGINEER procedure are i n the results section. POC GLUCOSE Routine 06/22/2019 12:28 Results for this PM STRUCTURAL ENGINEER procedure are i n the results section. POC GLUCOSE Routine 06/22/2019 8:38 Results for this AM STRUCTURAL ENGINEER procedure are i n the results section. ESTIMATED GFR Routine 06/22/2019 4:30 Results fo r this AM STRUCTURAL ENGINEER procedure are i n the results section. HEPATIC FUNCTION PANEL Routine 06/22/2019 4:30 R esults for this AM STRUCTURAL ENGINEER procedure are i n the results section. HC COMPLETE BLD COUNT Routine 06/22/2019 4:30 Re sults for this W/AUTO DIFF AM STRUCTURAL ENGINEER procedure are i n the results section. PHOSPHORUS LEVEL Routine 06/22/2019 4:30 Results for this AM STRUCTURAL ENGINEER procedure are i n the results section. MAGNESIUM LEVEL Routine 06/22/2019 4:30 Results for this AM STRUCTURAL ENGINEER procedure are i n the results section. BASIC METABOLIC PANEL Routine 06/22/2019 4:30 Re sults for this AM STRUCTURAL ENGINEER procedure are i n the results section. POC GLUCOSE Routine 06/22/2019 12:07 Results for this AM STRUCTURAL ENGINEER procedure are i n the results section. POC GLUCOSE Routine 06/21/2019 9:03 Results for this PM STRUCTURAL ENGINEER procedure are i n the results section. POC GLUCOSE Routine 06/21/2019 7:26 Results for this PM STRUCTURAL ENGINEER procedure are i n the results section. POC GLUCOSE Routine 06/21/2019 4:33 Results for this PM STRUCTURAL ENGINEER procedure are i n the results section. XR ABDOMEN 1 VW PORTABLE Routine 06/21/2019 4:08 Results for this PM STRUCTURAL ENGINEER procedure are i n the results section. POC GLUCOSE Routine 06/21/2019 11:46 Results for this AM STRUCTURAL ENGINEER procedure are i n the results section. POC GLUCOSE Routine 06/21/2019 8:15 Results for this AM STRUCTURAL ENGINEER procedure are i n the results section. ESTIMATED GFR Routine 06/21/2019 4:00 Results fo r this AM STRUCTURAL ENGINEER procedure are i n the results section. PHOSPHORUS LEVEL Routine 06/21/2019 4:00 Results for this AM STRUCTURAL ENGINEER procedure are i n the results section. MAGNESIUM LEVEL Routine 06/21/2019 4:00 Results for this AM STRUCTURAL ENGINEER procedure are i n the results section. BASIC METABOLIC PANEL Routine 06/21/2019 4:00 Re sults for this AM STRUCTURAL ENGINEER procedure are i n the results section. POC GLUCOSE Routine 06/20/2019 9:33 Results for this PM STRUCTURAL ENGINEER procedure are i n the results section. GRAM STAIN Routine 06/20/2019 5:32 Results for this PM STRUCTURAL ENGINEER procedure are i n the results section. AEROBIC CULTURE Routine 06/20/2019 5:32 Results for this PM STRUCTURAL ENGINEER procedure are i n the results section. POC GLUCOSE Routine 06/20/2019 3:51 Results for this PM STRUCTURAL ENGINEER procedure are i n the results section. POC GLUCOSE Routine 06/20/2019 12:25 Results for this PM STRUCTURAL ENGINEER procedure are i n the results section. POC GLUCOSE Routine 06/20/2019 7:34 Results for this AM STRUCTURAL ENGINEER procedure are i n the results section. ESTIMATED GFR Routine 06/20/2019 4:00 Results fo r this AM STRUCTURAL ENGINEER procedure are i n the results section. PHOSPHORUS LEVEL Routine 06/20/2019 4:00 Results for this AM STRUCTURAL ENGINEER procedure are i n the results section. MAGNESIUM LEVEL Routine 06/20/2019 4:00 Results for this AM STRUCTURAL ENGINEER procedure are i n the results section. BASIC METABOLIC PANEL Routine 06/20/2019 4:00 Re sults for this AM STRUCTURAL ENGINEER procedure are i n the results section. HEPATIC FUNCTION PANEL Routine 06/20/2019 4:00 R esults for this AM STRUCTURAL ENGINEER procedure are i n the results section. POC GLUCOSE Routine 06/19/2019 9:31 Results for this PM STRUCTURAL ENGINEER procedure are i n the results section. PROTEIN, URINE, RANDOM Routine 06/19/2019 7:06 R esults for this PM STRUCTURAL ENGINEER procedure are i n the results section. CREATININE LEVEL, URINE, Routine 06/19/2019 7:06 Results for this RANDOM PM STRUCTURAL ENGINEER procedure are i n the results section. POC GLUCOSE Routine 06/19/2019 4:08 Results for this PM STRUCTURAL ENGINEER procedure are i n the results section. POC GLUCOSE Routine 06/19/2019 12:34 Results for this PM STRUCTURAL ENGINEER procedure are i n the results section. POC GLUCOSE Routine 06/19/2019 7:42 Results for this AM STRUCTURAL ENGINEER procedure are i n the results section. ESTIMATED GFR Routine 06/19/2019 12:00 Results fo r this AM STRUCTURAL ENGINEER procedure are i n the results section. PHOSPHORUS LEVEL Routine 06/19/2019 12:00 Results for this AM STRUCTURAL ENGINEER procedure are i n the results section. MAGNESIUM LEVEL Routine 06/19/2019 12:00 Results for this AM STRUCTURAL ENGINEER procedure are i n the results section. BASIC METABOLIC PANEL Routine 06/19/2019 12:00 Re sults for this AM STRUCTURAL ENGINEER procedure are i n the results section. HEPATIC FUNCTION PANEL Routine 06/19/2019 12:00 R esults for this AM STRUCTURAL ENGINEER procedure are i n the results section. ANTI MITOCHONDRIA SCREEN Routine 06/19/2019 12:00 Results for this AM STRUCTURAL ENGINEER procedure are i n the results section. ANTI SMOOTH MUSCLE AB Routine 06/19/2019 12:00 Re sults for this SCREEN AM STRUCTURAL ENGINEER procedure are i n the results section. POC GLUCOSE Routine 06/18/2019 9:10 Results for this PM STRUCTURAL ENGINEER procedure are i n the results section. POC GLUCOSE Routine 06/18/2019 4:07 Results for this PM STRUCTURAL ENGINEER procedure are i n the results section. POC GLUCOSE Routine 06/18/2019 11:14 Results for this AM STRUCTURAL ENGINEER procedure are i n the results section. POC GLUCOSE Routine 06/18/2019 7:29 Results for this AM STRUCTURAL ENGINEER procedure are i n the results section. URINE CULTURE Routine 06/18/2019 7:24 Results fo r this AM STRUCTURAL ENGINEER procedure are i n the results section. URINALYSIS SCREEN AND Routine 06/18/2019 5:30 Re sults for this MICROSCOPY, WITH REFLEX AM STRUCTURAL ENGINEER proc edure are in TO CULTURE the results section. AMMONIA LEVEL Routine 06/18/2019 5:00 Results fo r this AM STRUCTURAL ENGINEER procedure are i n the results section. HEPATITIS B SURFACE AB, Routine 06/18/2019 5:00 Results for this QUANTITATIVE AM STRUCTURAL ENGINEER procedure are i n the results section. HC COMPLETE BLD COUNT Routine 06/18/2019 5:00 Re sults for this W/AUTO DIFF AM [employer]UCTURAL ENGINEER procedure are i n the results section. PROTHROMBIN TIME WITH Routine 06/18/2019 5:00 Re sults for this INR AM STRUCTURAL ENGINEER procedure are i n the results section. ESTIMATED GFR Routine 06/18/2019 4:00 Results fo r this AM STRUCTURAL ENGINEER procedure are i n the results section. GGT Routine 06/18/2019 4:00 Results for this AM STRUCTURAL ENGINEER procedure are i n the results section. ANNE Routine 06/18/2019 4:00 Results for this AM STRUCTURAL ENGINEER procedure are i n the results section. ALPHA-1 ANTITRYPSIN Routine 06/18/2019 4:00 Resu lts for this LEVEL AM STRUCTURAL ENGINEER procedure are i n the results section. ALPHA FETOPROTEIN Routine 06/18/2019 4:00 Result s for this AM STRUCTURAL ENGINEER procedure are i n the results section. CERULOPLASMIN LEVEL Routine 06/18/2019 4:00 Resu lts for this AM STRUCTURAL ENGINEER procedure are i n the results section. HEPATITIS C ANTIBODY Routine 06/18/2019 4:00 Res ults for this AM STRUCTURAL ENGINEER procedure are i n the results section. HEPATITIS B SURFACE Routine 06/18/2019 4:00 Resu lts for this ANTIGEN AM [employer]UCTURAL ENGINEER procedure are i n the results section. HEPATITIS B SURFACE Routine 06/18/2019 4:00 Resu lts for this ANTIBODY AM [employer]UCTURAL ENGINEER procedure are i n the results section. HEPATITIS B CORE Routine 06/18/2019 4:00 Results for this ANTIBODY TOTAL AM STRUCTURAL ENGINEER procedure are in the results section. HEPATITIS B CORE Routine 06/18/2019 4:00 Results for this ANTIBODY IGM AM STRUCTURAL ENGINEER procedure are i n the results section. HEPATITIS A ANTIBODY IGM Routine 06/18/2019 4:00 Results for this AM STRUCTURAL ENGINEER procedure are i n the results section. PHOSPHORUS LEVEL Routine 06/18/2019 4:00 Results for this AM STRUCTURAL ENGINEER procedure are i n the results section. MAGNESIUM LEVEL Routine 06/18/2019 4:00 Results for this AM STRUCTURAL ENGINEER procedure are i n the results section. BASIC METABOLIC PANEL Routine 06/18/2019 4:00 Re sults for this AM STRUCTURAL ENGINEER procedure are i n the results section. HEPATIC FUNCTION PANEL Routine 06/18/2019 4:00 R esults for this AM STRUCTURAL ENGINEER procedure are i n the results section. POC GLUCOSE Routine 06/17/2019 9:17 Results for this PM STRUCTURAL ENGINEER procedure are i n the results section. POC GLUCOSE Routine 06/17/2019 5:07 Results for this PM STRUCTURAL ENGINEER procedure are i n the results section. US ABDOMEN COMPLETE Routine 06/17/2019 4:48 Resu lts for this PM [employer]UCTURAL ENGINEER procedure are i n the results section. US ABDOMINAL DOPPLER Routine 06/17/2019 4:48 Res ults for this PM STRUCTURAL ENGINEER procedure are i n the results section. US RENAL Routine 06/17/2019 2:26 Results for this PM STRUCTURAL ENGINEER procedure are i n the results section. POC GLUCOSE Routine 06/17/2019 11:38 Results for this AM STRUCTURAL ENGINEER procedure are i n the results section. POC GLUCOSE Routine 06/17/2019 8:22 Results for this AM STRUCTURAL ENGINEER procedure are i n the results section. TISSUE TRANSGLUTAMINASE Routine 06/17/2019 4:53 Results for this AB, IGA AM STRUCTURAL ENGINEER procedure are i n the results section. ESTIMATED GFR Routine 06/17/2019 4:53 Results fo r this AM STRUCTURAL ENGINEER procedure are i n the results section. PHOSPHORUS LEVEL Routine 06/17/2019 4:53 Results for this AM STRUCTURAL ENGINEER procedure are i n the results section. MAGNESIUM LEVEL Routine 06/17/2019 4:53 Results for this AM STRUCTURAL ENGINEER procedure are i n the results section. BASIC METABOLIC PANEL Routine 06/17/2019 4:53 Re sults for this AM STRUCTURAL ENGINEER procedure are i n the results section. CELIAC DISEASE REFLEXIVE Routine 06/17/2019 4:53 Results for this CASCADE AM STRUCTURAL ENGINEER procedure are i n the results section. POC GLUCOSE Routine 06/17/2019 12:44 Results for this AM STRUCTURAL ENGINEER procedure are i n the results section. POC GLUCOSE Routine 06/16/2019 9:02 Results for this PM STRUCTURAL ENGINEER procedure are i n the results section. POC GLUCOSE Routine 06/16/2019 4:27 Results for this PM STRUCTURAL ENGINEER procedure are i n the results section. POC GLUCOSE Routine 06/16/2019 12:07 Results for this PM STRUCTURAL ENGINEER procedure are i n the results section. ECG 12-LEAD Routine 06/16/2019 11:18 Results for this AM STRUCTURAL ENGINEER procedure are i n the results section. POC GLUCOSE Routine 06/16/2019 7:25 Results for this AM STRUCTURAL ENGINEER procedure are i n the results section. ESTIMATED GFR Routine 06/16/2019 4:00 Results fo r this AM STRUCTURAL ENGINEER procedure are i n the results section. PHOSPHORUS LEVEL Routine 06/16/2019 4:00 Results for this AM STRUCTURAL ENGINEER procedure are i n the results section. MAGNESIUM LEVEL Routine 06/16/2019 4:00 Results for this AM STRUCTURAL ENGINEER procedure are i n the results section. BASIC METABOLIC PANEL Routine 06/16/2019 4:00 Re sults for this AM STRUCTURAL ENGINEER procedure are i n the results section. POC GLUCOSE Routine 06/15/2019 8:49 Results for this PM STRUCTURAL ENGINEER procedure are i n the results section. POC GLUCOSE Routine 06/15/2019 4:31 Results for this PM STRUCTURAL ENGINEER procedure are i n the results section. FECAL CALPROTECTIN Routine 06/15/2019 4:30 Resul ts for this PM STRUCTURAL ENGINEER procedure are i n the results section. SPIROMETRY, DIFFUSION, Routine 06/15/2019 2:29 Tachycardia R esults for this LUNG VOLUMES PM STRUCTURAL ENGINEER procedure are i n the results section. POC GLUCOSE Routine 06/15/2019 12:27 Results for this PM STRUCTURAL ENGINEER procedure are i n the results section. US CAROTID DUPLEX Routine 06/15/2019 11:31 Result s for this BILATERAL AM STRUCTURAL ENGINEER procedure are i n the results section. POC GLUCOSE Routine 06/15/2019 7:24 Results for this AM STRUCTURAL ENGINEER procedure are i n the results section. ESTIMATED GFR Routine 06/15/2019 3:38 Results fo r this AM STRUCTURAL ENGINEER procedure are i n the results section. PHOSPHORUS LEVEL Routine 06/15/2019 3:38 Results for this AM STRUCTURAL ENGINEER procedure are i n the results section. MAGNESIUM LEVEL Routine 06/15/2019 3:38 Results for this AM STRUCTURAL ENGINEER procedure are i n the results section. BASIC METABOLIC PANEL Routine 06/15/2019 3:38 Re sults for this AM STRUCTURAL ENGINEER procedure are i n the results section. HC COMPLETE BLD COUNT Routine 06/15/2019 3:38 Re sults for this W/AUTO DIFF AM STRUCTURAL ENGINEER procedure are i n the results section. POC GLUCOSE Routine 06/14/2019 9:02 Results for this PM STRUCTURAL ENGINEER procedure are i n the results section. CT HEAD WO CONTRAST STAT 06/14/2019 8:31 Resu lts for this PM STRUCTURAL ENGINEER procedure are i n the results section. POC GLUCOSE Routine 06/14/2019 4:31 Results for this PM STRUCTURAL ENGINEER procedure are i n the results section. POC GLUCOSE Routine 06/14/2019 3:36 Results for this PM STRUCTURAL ENGINEER procedure are i n the results section. POC GLUCOSE Routine 06/14/2019 12:06 Results for this PM STRUCTURAL ENGINEER procedure are i n the results section. POC GLUCOSE Routine 06/14/2019 8:38 Results for this AM STRUCTURAL ENGINEER procedure are i n the results section. GASTROINTESTINAL PANEL Routine 06/14/2019 5:48 R esults for this AM STRUCTURAL ENGINEER procedure are i n the results section. T4, FREE Routine 06/14/2019 5:14 Results for this AM STRUCTURAL ENGINEER procedure are i n the results section. THYROID STIMULATING Routine 06/14/2019 5:14 Resu lts for this HORMONE AM STRUCTURAL ENGINEER procedure are i n the results section. LIPID PANEL Routine 06/14/2019 5:14 Results for this AM STRUCTURAL ENGINEER procedure are i n the results section. HEMOGLOBIN A1C Routine 06/14/2019 5:14 Results f or this AM STRUCTURAL ENGINEER procedure are i n the results section. MANUAL DIFFERENTIAL Routine 06/14/2019 4:59 Resu lts for this AM STRUCTURAL ENGINEER procedure are i n the results section. ESTIMATED GFR Routine 06/14/2019 4:59 Results fo r this AM STRUCTURAL ENGINEER procedure are i n the results section. BASIC METABOLIC PANEL Routine 06/14/2019 4:59 Re sults for this AM STRUCTURAL ENGINEER procedure are i n the results section. CBC WITH PLATELET AND Routine 06/14/2019 4:59 Re sults for this DIFFERENTIAL AM STRUCTURAL ENGINEER procedure are i n the results section. POC GLUCOSE Routine 06/13/2019 9:19 Results for this PM STRUCTURAL ENGINEER procedure are i n the results section. POC GLUCOSE Routine 06/13/2019 4:35 Results for this PM STRUCTURAL ENGINEER procedure are i n the results section. POC GLUCOSE Routine 06/13/2019 11:50 Results for this AM STRUCTURAL ENGINEER procedure are i n the results section. POC GLUCOSE Routine 06/13/2019 8:04 Results for this AM STRUCTURAL ENGINEER procedure are i n the results section. POC GLUCOSE Routine 06/13/2019 8:02 Results for this AM STRUCTURAL ENGINEER procedure are i n the results section. HC COMPLETE BLD COUNT Routine 06/13/2019 5:30 Re sults for this W/AUTO DIFF AM STRUCTURAL ENGINEER procedure are i n the results section. ESTIMATED GFR Routine 06/13/2019 4:00 Results fo r this AM STRUCTURAL ENGINEER procedure are i n the results section. BASIC METABOLIC PANEL Routine 06/13/2019 4:00 Re sults for this AM STRUCTURAL ENGINEER procedure are i n the results section. TROPONIN Timed 06/13/2019 1:36 Results for this AM STRUCTURAL ENGINEER procedure are i n the results section. TROPONIN Timed 06/12/2019 10:55 Results for this PM STRUCTURAL ENGINEER procedure are i n the results section. GASTROINTESTINAL PANEL Routine 06/12/2019 10:05 R esults for this PM STRUCTURAL ENGINEER procedure are i n the results section. INFLUENZA ANTIGEN Routine 06/12/2019 9:15 Result s for this PM STRUCTURAL ENGINEER procedure are i n the results section. XR CHEST 1 VW PORTABLE STAT 06/12/2019 8:55 R esults for this PM STRUCTURAL ENGINEER procedure are i n the results section. ECG ED PRELIMINARY Routine 06/12/2019 7:50 Resul ts for this INTERPRETATION PM STRUCTURAL ENGINEER procedure are in the results section. URINALYSIS SCREEN AND STAT 06/12/2019 7:49 Re sults for this MICROSCOPY, WITH REFLEX PM STRUCTURAL ENGINEER proc edure are in TO CULTURE the results section. ESTIMATED GFR STAT 06/12/2019 7:49 Results fo r this PM STRUCTURAL ENGINEER procedure are i n the results section. PROTHROMBIN TIME WITH STAT 06/12/2019 7:49 Re sults for this INR PM STRUCTURAL ENGINEER procedure are i n the results section. PARTIAL THROMBOPLASTIN STAT 06/12/2019 7:49 R esults for this TIME (PTT) PM STRUCTURAL ENGINEER procedure are i n the results section. B NATRIURETIC PEPTIDE STAT 06/12/2019 7:49 Re sults for this PM STRUCTURAL ENGINEER procedure are i n the results section. TROPONIN STAT 06/12/2019 7:49 Results for this PM STRUCTURAL ENGINEER procedure are i n the results section. COMPREHENSIVE METABOLIC STAT 06/12/2019 7:49 Results for this PANEL PM STRUCTURAL ENGINEER procedure are i n the results section. HC COMPLETE BLD COUNT STAT 06/12/2019 7:49 Re sults for this W/AUTO DIFF PM STRUCTURAL ENGINEER procedure are i n the results section. URINE CULTURE STAT 06/12/2019 7:49 Results fo r this PM STRUCTURAL ENGINEER procedure are i n the results section. ECG 12-LEAD STAT 06/12/2019 7:42 Results for this PM STRUCTURAL ENGINEER procedure are i n the results section. after 10/13/2018 Results POC glucose (07/16/2019 12:29 PM CDT)Only the most recent of156 resultswithin the time period is included. Pathologist Sig nature POC glucose 253 (H) 65 - 99 mg/dL [facility] Comment: HOSPITAL Glass Curvature Gauger Name: Ney Lao Device ID: [id number] Chartable: [facility] Notified RN Specimen Blood Performing Organization Address City/State/Zipcode Phone Number [facility] DEPARTMENT OF PATHOLOGY AND [address] [place], [place] [address] [address] [address] Estimated GFR (07/16/2019 4:00 AM CDT)Only the most recent of36 resultswithin the time period is included. Estimated GFR 14 (A) mL/min/1.73 [facility] Comment: m2 HOSPITAL Catergory Units Interpretation G1 >=90 Normal or high G2 60-89 Mildly decreased G3a 45-59 Mildly to moderately decreas ed G3b 30-44 Moderately to severely decre ased G4 15-29 Severely decreased G5 <15 Kidney failure The eGFR was calculated using the Chronic Kidney Disea se Epidemiology Collaboration (CKD-EPI) equation. Interpretation is based on recommendations of the National Kidney Foundation-Kidney Disease Outcomes Hua lity Initiative (NKF-KDOQI) published in 2014. Specimen Performing Organization Address City/[facility] Phone Number [facility] DEPARTMENT OF PATHOLOGY AND [address] [place] [phone] Phosphorus level (07/16/2019 4:00 AM CDT)Only the most recent of31 results within the time period is included. Pathologist Sig nature Phosphorus 4.3 2.4 - 4.5 mg/dL [facility] L Specimen Blood Performing Organization Address [facility] Phone Number [facility] DEPARTMENT OF PATHOLOGY AND [address] [place] [address] [phone] [address] Basic metabolic panel (07/16/2019 4:00 AM CDT)Only the most recent of35 results within the time period is included. Pathologist Sig nature Sodium 142 135 - 148 mEq/L [facility] Potassium 4.3 3.5 - 5.0 mEq/L [facility] Chloride 105 98 - 112 mEq/L [facility] CO2 27 24 - 31 mEq/L [facility] Anion gap 10@ANIO 7 - 15 mEq/L [facility] BUN 46 (H) 6 - 20 mg/dL [facility] Creatinine 4.61 (H) 0.70 - 1.20 mg/dL [facility] Glucose 189 (H) 65 - 99 mg/dL [facility] Calcium 8.7 8.3 - 10.2 mg/dL [facility] Specimen Blood Performing Organization Address [facility] Centercode Phone Number [facility] DEPARTMENT OF PATHOLOGY AND [address] [place] [phone] [facility] [address] [place] [phone] CBC with platelet and differential (07/15/2019 5:30 AM CDT)Only the most recent of15 resultswithin the time period is included. WBC 6.44 4.50 - 11.00 [facility] k/uL HOSPITAL RBC 3.54 (L) 4.40 - 6.00 [facility] m/uL HOSPITAL HGB 10.6 (L) 14.0 - 18.0 [facility] g/dL [facility] HCT 31.2 (L) 41.0 - 51.0 % [facility] MCV 88.1 82.0 - 100.0 [facility] MCH 29.9 27.0 - 34.[address] [facility] MCHC 34.0 31.0 - 37.0 [facility] - SD 44.3 37.0 - 55.[address] [facility] MPV 12.1 8.8 - 13.[address] [facility] Platelet count 157 150 - 400 k/uL [facility] Nucleated RBC 0.00 /[address] [facility] Neutrophils 48.0 39.0 - 69.0 % [facility] Lymphocytes 32.5 25.0 - 45.0 % [facility] Monocytes 7.8 0.0 - 10.0 % [facility] Eosinophils 10.6 (H) 0.0 - 5.0 % [facility] Basophils 0.9 0.0 - 1.0 % [facility] Immature granulocytes 0.2Comment: 0.0 - 1.0 % [facility] "Immature HOSPITAL granulocytes" (promyelocytes , myelocytes, metamyelocytes ) Specimen Blood Performing Organization Address City/State/Zipcode Phone Number [facility] DEPARTMENT OF PATHOLOGY AND [address] [place] [phone] [place] [id number] [place] [address] Magnesium level (07/14/2019 5:10 AM CDT)Only the most recent of29 resultswithin the time period is included. Pathologist Sig nature Magnesium 1.9 1.6 - 2.6 mg/dL [facility] L Specimen Blood Performing Organization Address City/[facility]/Zipcode Phone Number [facility] DEPARTMENT OF PATHOLOGY AND [address] [place], [place] [phone] [address] [facility] [address] [place] [address] CT Chest Wo Contrast (07/11/2019 9:40 AM CDT) Specimen Narrative Performed At EXAMINATION: [facility] CT CHEST WO CONTRAST CLINICAL HISTORY: ILD Shortness of breath TECHNIQUE: Multiple axial images of the chest were obtained witho ut intravenous contrast. The lack of intravenous contrast reduces the sensitivity of detecting solid organ disease and evaluating vasculatu re. Sagittal and coronal computerized reformatted images were also obtained. All CT scan performed using radiation dose reduction t echniques. Technical factors are evaluated and adjusted to ensure appropriate moderation of exposure. Automated dose configuration management consultant nology is applied to adjust the radiation dose to minimize expose while achieving a diagnostic quality i mage. COMPARISON: CTA cardiac overread 07/06/2019 FINDINGS: Lungs and pleura: Moderate improvement of bilateral lo wer lobes groundglass opacities and nodular consolidations is se en. There is also moderate improvement of today's right upper lobe and r ight middle lobe nodular consolidations to the extent vis ualized on the prior study. Moderate improvement of patchy le ft upper lobe nodular infiltrates the extent visualized is also seen . A pleural effusion is identified. There is no evid ence of pneumothorax Heart: The heart is normal in size. No pericardial eff usion is seen. Moderate atherosclerotic coronary artery calcifications are noted. Vasculature: The thoracic aorta is not well evaluated without the use of intravenous contrast. Scatter atherosclerotic disease of the thoracic aorta is noted. There is no evidence of aortic aneurys m. The pulmonary vasculature is unremarkable. Adenopathy: No gross evidence of mediastinum, hilar or axillary lymphadenopathy. Others: The visualized portions of the upper abdominal are within normal limits. Soft tissue and osseous struct ures are unremarkable. IMPRESSION: Overall moderate improvement of bilateral groundglass and nodular consolidations, predominantly involving the lower lobe s, in the interim, suggestive of improvement of multifocal pneumonia. Rec ommend clinical correlation.. [facility]-[id number] Procedure Note Interface, Radiology Results Incoming - 07/11/2019 10:32 AM CDT EXAMINATION: CT CHEST WO CONTRAST CLINICAL HISTORY: ILD Shortness of breath TECHNIQUE: Multiple axial images of the chest were obtained without intravenous contrast. The lack of intravenous contrast reduces the sensitivity of detecting solid organ disease and evaluating vasculature. Sagittal and coronal computerized reformatted images were also obtained. All CT scan performed using radiation do se reduction techniques. Technical factors are evaluated and adjusted to ensure appropriate moderation of exposure. Automated dose management technology is applied to adjust the radiation dose to minimize expose while achieving a diagnostic quality im age. COMPARISON: CTA cardiac overread 07/06/2019 FINDINGS: Lungs and pleura: Moderate improvement o f bilateral lower lobes groundglass opacities and nodular consolidations is seen. There is also moderate improvement of today's right upper lobe and right middle lobe nodular consolidations to the extent vis ualized on the prior study. Moderate improvemen t of patchy left upper lobe nodular infiltrates the extent visualized is also seen. A pleural effusion is identified. There is no evidence of pneumothorax Heart: The heart is normal in size. No p ericardial effusion is seen. Moderate atherosclerotic coronary artery calcifications are noted. Vasculature: The thoracic aorta is not w ell evaluated without the use of intravenous contrast. Scatter atherosclerotic disease of the thoracic aorta is noted. There is no evidence of aortic aneurysm. The pulmonary vasculature is unremarkable. Adenopathy: No gross evidence of mediast inum, hilar or axillary lymphadenopathy. Others: The visualized portions of the u pper abdominal are within normal limits. Soft tissue and osseous structures are unremarkable. IMPRESSION: Overall moderate improvement of bilatera l groundglass and nodular consolidations, predominantly involving the lower lobes, in the interim, suggestive of improvement of multifocal pneumonia. Recommend clinical correlation.. [facility]-[id number] Performing Organization Address [facility] Phone Number [facility] [address] [place] [address] Total iron binding capacity (07/10/2019 1:40 PM CDT) Pathologist Sig [facility] Iron level 72 59 - 158 ug/dL [facility] Iron binding capacity 298 200 - 400 ug/dL [facility] % Saturation 24.2 20.0 - 40.0 % [facility] Specimen Blood Performing Organization Address [facility] Centercode Phone Number [facility] DEPARTMENT OF PATHOLOGY AND [address] [place], [place] [address] [address] [address] Ferritin level (07/10/2019 1:40 PM CDT) Pathologist Sig [facility] Ferritin level 214 30 - 400 ng/mL [facility] Specimen Blood Performing Organization Address City/State/Zipcode Phone Number [facility] DEPARTMENT OF PATHOLOGY AND [address] [place], [place] [address] [address] [facility] [address] [place] [address] [place] Modified Barium Swallow (07/09/2019 1:51 PM CDT) Specimen Narrative Performed At EXAMINATION: [place] MODIFIED BARIUM SWALLO W [facility] CLINICAL HISTORY: aspiration dysphagia unspecified COMPARISON: 02/13/2019 Fluoroscopy time: 1.2 minutes Total patient dose: 7.5 mGy FINDINGS: The patient swallowed varying consistencies of barium under direct lateral fluoroscopic evaluation. The study was perform ed in conjunction with speech pathology. IMPRESSION: Laryngeal penetration with thin barium. Contrast remai jessica above the vocal folds. No evidence of aspiration. Please refer to Speech Pathology report for further details. [facility]-[id number] Dictated and approved by senior vice president & general counsel/fellow: Marin Escamilla M.D. I, Adriana Morales MD, personally reviewed the images and resident's/fellow's findings and agree with the final report. Procedure Note [facility], Radiology Results Incoming - 07/09/2019 3:05 PM CDT EXAMINATION: [place] MODIFIED BARIUM SWALLOW CLINICAL HISTORY: aspiration dysphagia unspecified COMPARISON: 02/13/2019 Fluoroscopy time: 1.2 minutes Total patient dose: 7.5 mGy FINDINGS: The patient swallowed varying consisten cies of barium under direct lateral fluoroscopic evaluation. The study was performed in conjunction with speech pathology. IMPRESSION: Laryngeal penetration with thin barium. Contrast remained above the vocal folds. No evidence of aspiration. Please refer to Speech Pathology report for further details. [facility]-[id number] Dictated and approved by radiology resid ent/fellow: Eugenia Escamilla M.D. I, Adriana Morales MD, personally review ed the images and resident's/fellow's findings and agree with the final report. Performing Organization Address City/State/Zipcode Phone Number [facility] [address] [place] [address] Hepatic function panel (07/08/2019 4:00 AM CDT)Only the most recent of15 resultswithin the time period is included. Albumin 2.4 (L) 3.5 - 5.0 [facility] g/dL [facility] Total bilirubin <0.2 0.0 - 1.2 [facility] mg/dL [facility] Bilirubin direct <0.2 0.0 - 0.3 [facility] mg/dL HOSPITAL Alkaline phosphatase 133 (H) 40 - 129 U/L [facility] Protein 6.9 6.3 - 8.3 [facility] Comment: g/dL [facility] - [place] 4.6-7.0 g/dL 1 week 4.4-7.6 g/dL 7 months-1year 5.1-7.3 g/dL 1-2 years 5.6-7.5 g/dL >3 years 6.0-8.0 g/dL 18-150 6.3-8.3 g/dL ALT 20 5 - 50 U/L [facility] AST 20 10 - 50 U/L [facility] Specimen Plasma specimen Performing Organization Address City/[facility] Centercode Phone Number [facility] DEPARTMENT OF PATHOLOGY AND [address] [place] [phone] GENOM[address] MEDICINE [address] [address] Hypersensitivity pneumonitis II (07/07/2019 5:30 PM CDT) Aspergillus flavus None Detected None-[facility] Comment: tin LAB Testing includes antibodies directed at Aspergillus fl avus, Aspergillus fumigatus #2, Aspergillus fumigatus #3, Saccharomonospora viridis, and Thermoactinomyces dory dus. Aspergillus fumigatus None Detected None-[facility] REF #2 tin LAB Aspergillus fumigatus None Detected None-[facility] REF #3 tin LAB Saccharomonospora None Detected None-[facility] viridis tin LAB Thermoactinomyces None Detected None-[facility] candidus Comment: tin LAB Performed by [employer], [address] [place], [place] [id number] [email or web address], Roberto Almaguer MD, Lab. Director Thermoactinomyces NOT PERFORMED WITH [facility] saccharii THIS PANEL LAB Specimen Serum Performing Organization Address [facility]/Zipcode Phone Number [facility] [address] [place] [address] [facility] [address] [place] [address] Hypersensitivity pneumonitis I (07/07/2019 5:30 PM CDT) Aspergillus fumigatus None Detected None-[facility]ec [facility] REF #1 tin LAB Aspergillus fumigatus None Detected None-Detec [facility] REF #6 tin LAB Aureobasidium pullulans None Detected None-Detec [facility] Comment: tin LAB Testing includes antibodies directed at Aureobasidium pullulans, Aspergillus fumigatus #1, Aspergillus fumigatus #6, Mi cropolyspora faeni, Jackson Serum and Thermoactinomyces vulgaris #1. Jackson serum None Detected None-Detec [facility] tin LAB Micropolyspora faeni None Detected None-Detec [facility] tin LAB Thermoactinomyces None Detected None-Detec [facility] vulgaris #1 Comment: tin LAB Performed by [employer], [address] [place] [id number] [email or web address], Roberto Almaguer MD, Lab. Director Specimen Serum Performing Organization Address City/[facility] Centercode Phone Number [facility] [address] [place] [address] [facility] [address] [place] [address] Immunoglobulin G (07/07/2019 4:11 PM CDT) Pathologist [facility] nature IgG 1,005 700 - 1,600 mg/dL [facility] Specimen Plasma specimen Performing Organization Address City/[facility]/Zipcode Phone Number [facility] DEPARTMENT OF PATHOLOGY AND [address] [place] [address] [phone] [address] SS-B antibody (07/07/2019 2:30 PM CDT) Pathologist [facility] Sjogren's SS-B <0.2 0.0 - 0.9 AI THEODOSIA antibody [facility] CAMPUS SS-B antibody Negative [facility] inter Comment: [facility] SS-B/La antibody is seen in patients with Sjogre n syndrome, but may also be HOSPITAL positive with systemic lupus erythematosus (SLE), and systemic sclerosis. Specimen Serum Performing Organization Address City/[facility]/Zipcode Phone Number [facility] DEPARTMENT OF PATHOLOGY AND [address] [place] [address] [phone] [address] SS-A antibody (07/07/2019 2:30 PM CDT) Pathologist [facility] Sjogren's SS-A <0.2 0.0 - 0.9 [facility] antibody [facility] SS-A antibody Negative [facility] interp Comment: [facility] SS-A antibody is sensitive for Sjogren's syndrom e, but may also be positive HOSPITAL with systemic lupus erythematosus (SLE), and systemic sclerosis. Specimen Serum Performing Organization Address City/State/Zipcode Phone Number [facility] DEPARTMENT OF PATHOLOGY AND [address] [place] [phone] Scl-70 antibody (07/07/2019 2:30 PM CDT) Pathologist [facility] Scleroderma SCL-70 <0.2 0.0 - 0.9 [facility] Ab [facility] Scl-70 antibody Negative [facility] interp Comment: [facility] Anti-Scl-70 (topoisomerase I) antibodies are found in patients with HOSPITAL systemic sclerosis (SSc or scleroderma), and have been reported to be predictive of diffuse cutaneous involvement. Anti-Scl- 70 antibodies may also be present in patients with systemic lupus erythe matosus (SLE). Specimen Serum Performing Organization Address City/State/Zipcode Phone Number [facility] DEPARTMENT OF PATHOLOGY AND [address] [place] [phone] Centromere antibody (07/07/2019 2:30 PM CDT) Pathologist [facility] Centromere <0.2 0.0 - 0.9 [facility] Centromere Negative [facility] antibody interp Comment: HOSPITAL Anti-centromere antibodies are found in patients with systemic sclerosis (SSc or scleroderma), especially for those with limite d cutaneous or CREST syndrome. Anti-centromere antibodies may also be found in patients with other rheumatic or connective tissue diseases. Specimen Serum Performing Organization Address City/State/Zipcode Phone Number [facility] DEPARTMENT OF PATHOLOGY AND [address] [place] [phone] DNA Ab screen (07/07/2019 2:30 PM CDT) Pathologist [facility] nature DNA Ab screen Not Detected Not-Detected [facility] Specimen Blood Performing Organization Address City/State/Zipcode Phone Number [facility] DEPARTMENT OF PATHOLOGY AND [address] [place], [place] [address] [facility] [address] [place] [address] Anti-neutrophilic cytoplasmic Abs panel (07/07/2019 2:30 PM CDT) Pathologist Sig nature ANCA screen Negative Negative [facility] Specimen Blood Performing Organization Address City/State/Zipcode Phone Number [facility] DEPARTMENT OF PATHOLOGY AND [address] [place], [place] [address] [facility] [address] [place] [address] CT Cardiac Overread (07/06/2019 6:20 PM CDT) Specimen Narrative Performed At EXAMINATION: CT CARDIAC OVERREAD [facility] CLINICAL HISTORY: Radiology overread of imaging perfor med in the cardiology department. Only extracardiac structures ar e assessed. 53 years Male CAD TECHNIQUE: Please refer to cardiology note for details on the acquisition technique. COMPARISON: None. FINDINGS: Extracardiac findings: Lungs and airways: Scattered airspace disease with massimo undglass opacities in the right middle lobe, peripherally in the right lo wer lobe and left lower lobe. Mild bronchiectasis throughout. An underly ing infectious/inflammatory process cannot b e excluded further characterization with dedicated CT of the chest is recommended Pleura: No pleural effusion or pneumotho rax. Mediastinum and lymph nodes: No lymphade nopathy. Upper abdomen: No suspicious abnormaliti es. Musculoskeletal: Degenerative changes of the osseous s tructures. No suspicious lesions. Please refer to separately dictated cardiology report for cardiac and vascular findings. IMPRESSION: 1.Scattered airspace disease, groundglass opacities an d bronchiectasis in the lung bases. Further characterization with CT of the chest is recommended Procedure Note Interface, Radiology Results Incoming - 07/06/2019 7:54 PM CDT EXAMINATION: CT CARDIAC OVERREAD CLINICAL HISTORY: Radiology overread of imaging performed in the cardiology department. Only extracardiac structures are assessed. 53 years Male CAD TECHNIQUE: Please refer to cardiology no te for details on the acquisition technique. COMPARISON: None. FINDINGS: Extracardiac findings: Lungs and airways: Scattered airspace di sease with groundglass opacities in the right middle lobe, peripherally in the right lower lobe and left lower lobe. Mild bronchiectasis throughout. An underlying infectious/inflammatory process cannot b e excluded further characterization with dedicated CT of the chest is recommended Pleura: No pleural effusion or pneumotho rax. Mediastinum and lymph nodes: No lymphade nopathy. Upper abdomen: No suspicious abnormaliti es. Musculoskeletal: Degenerative changes of the osseous structures. No suspicious lesions. Please refer to separately dictated card iology report for cardiac and vascular findings. IMPRESSION: 1.Scattered airspace disease, groundglas s opacities and bronchiectasis in the lung bases. Further characterization with CT of the chest is recommended Performing Organization Address City/State/Zipcode Phone Number [facility] [address] [place] [address] Cv cta coronary arteries w contrast and ffr if needed (07/06/2019 1:32 PM CDT) Specimen Narrative Performed At This result has an attachment that is no t available. [facility] Nuclear Cardiology and Card iac CT [address] [address] CTA Coronary Arteries R eport Pat.Name: PAOLA KWONG Pat.ID: [id number] .Date: 07/06/2019 Refer.MD: MILTON ELLINGTON MD Exam Time: 1:09:00 PM Study Type:C TA Coronary Arteries Height: 67in Weight: 212lb BSA: 2.07 m2 Age: 4 1965,53Y Sex: MALE BP: 151/83 HR: 54 bpm Nuclear Tech:Samina Beyer, RT(R)(CT) Pat. Stat.:Inpatient Tape Vol: 33.2, CPT - 4: CCTA w Thoracic Aorta (NonCongenital) [id number] Nuclear Event ID:[id number] Order ID: [id number] Reason for Study:Pre-Op CABG, CAD History / Clinical:Coronary artery disease, Diabetes, Hyperlipidemia, Hypertension, S/P PCI 07/2007, Liver cirrhosis/Hepatiti s C Procedures: CT Prospective (phases) Race: C SUMMARY: Technique: IV contrast was administered and sequential 0.[address] cuts were obtained through the chest using the Siemens [facility] moy Force CT scanner. Image post-processing consisting of multiplan ar and 3D reconstructions were performed using the [employer] workstation. Interactive image viewing, volumetric dis play and analysis were also performed. CTA RESULTS Left Main: A long 4.1 artery which arises normally from the left sinus of Valsalva and divides into the left anterior descending , circumflex, and ramus coronary arteries. Moderate calcified and non-calcified atherosclerotic plaque is present but without signific ant stenosis. Left anterior descending (LAD): A normal sized 3.5 mm artery which wraps around the ap ex and gives off two diagonal branches. Severe calcified and non-calcif ied atherosclerotic plaque is present in the proximal, mid and distal segments with severe >70% stenosis in the proximal seg ment. The distal LAD beyond the takeoff of the second diagonal i s a 2 mm artery with mild to moderate predominantly calcified atherosc lerotic plaque but no significant stenosis. Patent 17 mm long stent in the mid left anterior desce nding coronary artery. The first diagonal is a 2.8 mm trifurcating artery whi ch has moderate calcified and non-calcified atherosclerotic plaque pre sent with approximately 50% stenosis. The second diagonal is a 1.5 mm artery which has no si gnificant atherosclerotic plaque present. Left circumflex: A normal sized 3.3 mm non-dominant artery which arises normally from the left main and gives off one major obtuse marginal artery before terminating in the AV groove. Moderate calcified and n on-calcified atherosclerotic plaque is present in the proximal segm ent with approximately 40% proximal stenosis. The first obtuse marginal is a 2.5 mm quadfurcated art bhargav which has moderate calcified and non-calcified atherosclerotic p laque present with subtotal vs. total occlusion after the stent. Patent 17 mm long stent in the first obtuse marginal a rtery. Right coronary artery: A normal sized 4.2 mm dominant artery which arises nor sha from the right sinus of Valsalva and gives off several right ve ntricular branches, the posterior descending artery and the post erolateral artery. Moderate calcified and non-calcified atheroscl erotic plaque is present in the proximal, mid and distal segments with severe >70% stenosis in the mid segment between the two stents. Patent 16 mm long stent in the proximal segment and pa tent 33 mm long stent in the distal segment of the right coronary tho ry. The posterior descending is a 1.8 mm bifurcating arter y which has moderate predominantly calcified atherosclerotic plaqu e present but no significant stenosis. The posterolateral is a large 2.9 mm trifurcating tho ry which has mild calcified atherosclerotic plaque present but no s ignificant stenosis. Ramus: A 1.8 mm artery which has mild calcified athero sclerotic plaque present but without significant stenosis. Stents: Patent stent in the left anterior descending c oronary artery. Patent 17 mm long stent in the first obtuse marginal a rtery. Patent 16 mm long stent in the proximal segment and pa tent 33 mm long stent in the distal segment of the right coronary tho ry. Bypass Grafts: None. Pulmonary Arteries: Normal pulmonary artery sizes with no proximal thrombu s identified. Left Atrial and Pulmonary Vein Dimensions: Left atrial size (A-P diameter) 4.4 cm. Left atrial volume 90 ml. Normal PV anatomy Left superior PV18mm. Left inferior PV14 mm. Right superior PV18 mm. Right inferior PV16 mm. There is no evidence of the left atrial appendage yamilka t. Left Ventricular Valve Morphology/Function: LV septal wall thickness 16 mm. LV end-diastolic volume 137 ml. Aortic valve is tri-leaflet with trace aortic regurgit ation (AROA <0.05cm2) Mitral valve is normal without evidence of significant stenosis Thoracic Aortic Dimensions: No aortic aneurysm or dissection is seen. Aortic root 3.7 cm. Sinotubular junction 2.6 cm. Mid ascending aorta 2.9 cm. Descending thoracic aorta 2.3 cm. Pericardium: No pericardial effusion or pericardial thickening. Non-Cardiac Findings: Mild bilateral pulmonary congestion. SVC catheter. CONCLUSION Coronary CTA shows severe coronary atherosclerosis wit h severe stenosis of the proximal left anterior descending and mid right coronary arteries; moderate stenosis of the first diag onal; and subtotal vs. total occlusion of the distal first obtus e marginal artery. Patent stent in the left anterior descending coronary artery. Patent 17 mm long stent in the first obtuse marginal a rtery. Patent 16 mm long stent in the proximal segment and pa tent 33 mm long stent in the distal segment of the right coronary tho ry. Aortic valve is tri-leaflet with trace aortic regurgit ation (AROA <0.05cm2) Mitral valve is normal without evidence of significant stenosis Normal PV anatomy. There is no evidence of the left atrial appendage clot . Please refer to the separate radiology report in [facility] for any additional non-cardiovascular findings. STUDY QUALITY The study quality is good. COMMENTS None. FINDINGS: Signed 07/06/2019 05:59 PM Sreedhar Walton MD Procedure Note Interface, Radiology Results In - 2019 5:59 PM CDT Nuclear Cardiology and Cardiac CT [address] [place] [address] CTA Coronary Arteri es Report Pat.Name: PAOLA KWONG Pat.I D: [id number] St.Date: 07/06/2019 Refer.MD: MILTON ELLINGTON MD Exam Time: 1:09:00 PM Study Type:CTA Coronary Arteries Height: 67in Weigh t: 212lb BSA: 2.07 m2 Age: 4 1965,53Y Sex: MALE BP: 151/83 HR: 54 bpm Nuclear Tech:Samina Beyer RT(R)(CT) Pat. Stat.:Inpatient Tape Vol: 33.2, CPT - 4: CCTA w Thoracic Aorta (NonCo ngenital) [id number] Nuclear Event ID:[id number] Order ID: [id number] Reason for Study:Pre-Op CABG, CAD History / Clinical:Coronary artery disea se, Diabetes, Hyperlipidemia, Hypertension, S/P PCI 07/2007, Liver cirr hosis/Hepatitis C Procedures: CT Prospective (phases) Race: C SUMMARY: Technique: IV contrast was administered and sequential 0.[address] cuts were obtained through the chest using e Siemens Somat[employer]esta CT scanner. Image post-processing consistin g of multiplanar and 3D reconstructions were performed using the [employer] workstation. Interactive image viewing, volumetric display and analysis were also performed. CTA RESULTS Left Main: A long 4.1 artery which arises normally from the left sinus of Valsalva and divides into the left anter ior descending, circumflex, and ramus coronary arteries. Moderate c alcified and non-calcified atherosclerotic plaque is present but wi thout significant stenosis. Left anterior descending (LAD): A normal sized 3.5 mm artery which wraps around the apex and gives off two diagonal branches. Severe calcified and non-calcified atherosclerotic plaque is present in the proximal, mid and distal segments with severe >70% stenosis in th e proximal segment. The distal LAD beyond the takeoff of the sec ond diagonal is a 2 mm artery with mild to moderate predominantly calc ified atherosclerotic plaque but no significant stenosis. Patent 17 mm long stent in the mid left anterior descending coronary artery. The first diagonal is a 2.8 mm trifurcat ing artery which has moderate calcified and non-calcified atherosclero tic plaque present with approximately 50% stenosis. The second diagonal is a 1.5 mm artery w hich has no significant atherosclerotic plaque present. Left circumflex: A normal sized 3.3 mm non-dominant arter y which arises normally from the left main and gives off one major ob tuse marginal artery before terminating in the AV groove. Moderate c alcified and non-calcified atherosclerotic plaque is present in the proximal segment with approximately 40% proximal stenosis. The first obtuse marginal is a 2.5 mm qu adfurcated artery which has moderate calcified and non-calcified ath erosclerotic plaque present with subtotal vs. total occlusion after the stent. Patent 17 mm long stent in the first obt use marginal artery. Right coronary artery: A normal sized 4.2 mm dominant artery wh ich arises normally from the right sinus of Valsalva and gives off se veral right ventricular branches, the posterior descending arter y and the posterolateral artery. Moderate calcified and non-calci fied atherosclerotic plaque is present in the proximal, mid and distal segments with severe >70% stenosis in the mid segment between the two stents. Patent 16 mm long stent in the proximal segment and patent 33 mm long stent in the distal segment of the right coronary artery. The posterior descending is a 1.8 mm bif urcating artery which has moderate predominantly calcified atheros clerotic plaque present but no significant stenosis. The posterolateral is a large 2.9 mm tri furcating artery which has mild calcified atherosclerotic plaque pr esent but no significant stenosis. Ramus: A 1.8 mm artery which has mild ca lcified atherosclerotic plaque present but without significant stenosis . Stents: Patent stent in the left anterio r descending coronary artery. Patent 17 mm long stent in the first obt use marginal artery. Patent 16 mm long stent in the proximal segment and patent 33 mm long stent in the distal segment of the right coronary artery. Bypass Grafts: None. Pulmonary Arteries: Normal pulmonary artery sizes with no pr oximal thrombus identified. Left Atrial and Pulmonary Vein Dimension s: Left atrial size (A-P diameter) 4.4 cm. Left atrial volume 90 ml. Normal PV anatomy Left superior PV18mm. Left inferior PV14 mm. Right superior PV18 mm. Right inferior PV16 mm. There is no evidence of the left atrial appendage clot. Left Ventricular Valve Morphology/Functi on: LV septal wall thickness 16 mm. LV end-diastolic volume 137 ml. Aortic valve is tri-leaflet with trace a ortic regurgitation (AROA <0.05cm2) Mitral valve is normal without evidence of significant stenosis Thoracic Aortic Dimensions: No aortic aneurysm or dissection is seen . Aortic root 3.7 cm. Sinotubular junction 2.6 cm. Mid ascending aorta 2.9 cm. Descending thoracic aorta 2.3 cm. Pericardium: No pericardial effusion or pericardial t hickening. Non-Cardiac Findings: Mild bilateral pulmonary congestion. SVC catheter. CONCLUSION Coronary CTA shows severe coronary ather osclerosis with severe stenosis of the proximal left anterior d escending and mid right coronary arteries; moderate stenosis of the first diagonal; and subtotal vs. total occlusion of the dist al first obtuse marginal artery. Patent stent in the left anterior descen ding coronary artery. Patent 17 mm long stent in the first obt use marginal artery. Patent 16 mm long stent in the proximal segment and patent 33 mm long stent in the distal segment of the right coronary artery. Aortic valve is tri-leaflet with trace a ortic regurgitation (AROA <0.05cm2) Mitral valve is normal without evidence of significant stenosis Normal PV anatomy. There is no evidence of the left atrial appendage clot. Please refer to the separate radiology r eport in [facility] for any additional non-cardiovascular findings. STUDY QUALITY The study quality is good. COMMENTS None. FINDINGS: Signed 07/06/2019 05:59 PM Sreedhar Walton MD Performing Organization Address [facility] Phone Number [facility] [address] [place] [phone] HIV Ag/Ab combination (07/06/2019 5:20 AM CDT) Pathologist [facility] HIV Ag/Ab combination Non-reactive Non-reactive [facility] Specimen Blood Performing Organization Address [facility] Phone Number [facility] DEPARTMENT OF PATHOLOGY AND [address] [place] [address] [place] [phone] Prothrombin time with INR (07/06/2019 5:20 AM CDT)Only the most recent of3 resultswithin the time period is included. [facility] Prothrombin time 14.5 11.5 - 14.5 [facility] INR 1.1 THEODOSIA Comment: [facility] International Normalized Ratio (INR) is a [facility] monitoring tool for patients who are stable on oral anticoagulant therapy. An INR of 2.0-3.0 is suggested for deep vein thrombosis/pulmonary embolism. Specimen Blood Performing Organization Address [facility] Phone Number [facility] DEPARTMENT OF PATHOLOGY AND [address] [place] [address] [phone] [address] Rheumatoid factor (07/06/2019 5:20 AM CDT) Pathologist [facility] Rheumatoid factor <10 0 - 13 IU/mL [facility] Specimen Plasma specimen Performing Organization Address [facility] Phone Number [facility] DEPARTMENT OF PATHOLOGY AND [address] [place] [address] [phone] [address] C3 complement component (07/06/2019 5:20 AM CDT) Pathologist [facility] C3 complement 133 90 - 180 mg/dL [facility] L Specimen Plasma specimen Performing Organization Address [facility] Phone Number [facility] DEPARTMENT OF PATHOLOGY AND [address] [place] [address] 0 [place] [address] C4 complement component (07/06/2019 5:20 AM CDT) Pathologist Sig nature C4 complement 34 10 - 40 mg/dL [facility] Specimen Plasma specimen Performing Organization Address [facility] Phone Number [facility] DEPARTMENT OF PATHOLOGY AND [address] [place] [address] 0 [facility] [address] [place] [address] Transthoracic Echocardiogram Complete, (w Contrast, Strain and 3D if needed) (07/05/2019 9:25 AM CDT) Specimen Narrative Performed At [facility] Echo cardiography Report [address] [place] [address] Pat.Name: PAOLA KWONG Pat.ID: [id number] .Date: 07/05/2019 Refer.MD: MILTON ELLINGTON MD Exam Time: 7:54:00 AM Study Type:R outine Echo Height: 67in Weight: 212lb BSA: 2.07 m2 Ag e: 1965,53Y Sex: MALE BP: 157/71 Sonogrphr: Audrey Bella RDCS, RVSPat. Stat.:Inpatien t Room: [facility] Study S tatus:Final Echo Event ID:[id number] Order ID: [id number] Reason for Study:Chest pain, suspected c ardiac etiology History / Clinical:Chest Pain, Diabetes, Hyperlipidemia, Hypertension, Cirrhosis, NC, Infectious Viral Hepatiti s Procedures: 2D Echo, Colorflow Doppler Race: C SUMMARY: LV EF is normal. Estimated EF is 65-69% RV systolic function is normal. LV filling pressure is normal. Normal RA P. No significant valvular abnormalities. FINDINGS: LV: LV size is normal. There is mild concentric LV hypertrophy. LV EF is normal. Overall wall motion is normal. Estimated EF is 65-69% RV: RV size is normal. RV systo lic function is normal. LA: LA volume is moderately to severely enlarged. RA: RA size is normal. AO: Aortic root diameter is nor mal. MACHO: No pericardial effusion. AV: No structural AV abnormalit ies noted. A trace of aortic regurgitation. MV: No structural MV abnormalit ies noted. A trace of mitral regurgitation. PV: No structural PV abnormalit ies noted. A trace of pulmonic regurgitation. TV: No structural TV abnormalit ies noted. A trace of tricuspid regurgitation Jose: LV relaxation is impaired. L V filling pressure is normal. Hepatic vein pressure i s normal, RA pressure < 5mmHg. Other: Insufficient TR jet to estim ate PA systolic pressure. MEASUREMENTS: 2D Parasternal [place] Ao An 2 cm LVPWd 1.5 cm Ao Rtd 3.6 cm Index 1.8 cm/m2 LA Ds 4.8 cm IVSd 1.4 cm RWT 0.68 LVIDd 4.4 cm Index 2.1 cm/m2 LV Mass 260 g (122-1 74) LVIDs 2.5 cm LVM In dex 126 g/m LV%fs 43 % LA Sng Plane LA Area 27 cm (8.8-23.4) LA Vol 95 ml Index 46 ml/m2 LA LngAx 6.4 cm RA Sng Plane RA Vol 35 ml Index 17 ml/m2 RA LngAx 4.8 cm RA Area 14 cm (8.3-1 9.5) Aorta Ao Asc 3 cm (2.1-3 .4) LVOT Stroke Vol LVOT 2.1 cm LVOT LVOT Area 3.5 cm DOPPLER LVOT Stroke Vol LVOT TVI 22 cm LVOT CI 2.1 l/m/m LVOT SV 75 ml HR 59 bpm LVOT CO 4.4 l/min LVOT SVi 36 ml/m Signed 07/05/2019 10:49 AM Jo Ann Kraus MD Procedure Note Interface, Radiology Results In - 2019 10:49 AM CDT Echocardiography Report [address] [place] [address] Pat.Name: PAOLA KWONG Pat.I D: [id number] St.Date: 07/05/2019 Refer.MD: MILTON ELLINGTON MD Exam Time: 7:54:00 AM Study Type:Routine Echo Height: 67in Weigh t: 212lb BSA: 2.07 m2 Age: 6 1965,53Y Sex: MALE BP: 157/71 Sonogrphr: Adurey Bella RDCS, RVSPat. Stat.:Inpatient Room: [facility] Study Status:Final Echo Event ID:[id number] Order ID: [id number] Reason for Study:Chest pain, suspected c ardiac etiology History / Clinical:Chest Pain, Diabetes, Hyperlipidemia, Hypertension, Cirrhosis, NC, Infectious Viral Hepatiti s Procedures: 2D Echo, Colorflow Doppler Race: C SUMMARY: LV EF is normal. Estimated EF is 65-69% RV systolic function is normal. LV filling pressure is normal. Normal RA P. No significant valvular abnormalities. FINDINGS: LV: LV size is normal. There is mi ld concentric LV hypertrophy. LV EF is normal. Overall wall motion is normal. Estimated EF is 65-69% RV: RV size is normal. RV systolic function is normal. LA: LA volume is moderately to sev erely enlarged. RA: RA size is normal. AO: Aortic root diameter is normal . MACHO: No pericardial effusion. AV: No structural AV abnormalities noted. A trace of aortic regurgitation. MV: No structural MV abnormalities noted. A trace of mitral regurgitation. PV: No structural PV abnormalities noted. A trace of pulmonic regurgitation. TV: No structural TV abnormalities noted. A trace of tricuspid regurgitation Jose: LV relaxation is impaired. LV filling pressure is normal. Hepatic vein pressure is norm al, RA pressure < 5mmHg. Other: Insufficient TR jet to estimat e PA systolic pressure. MEASUREMENTS: 2D Parasternal Long [place] Ao An 2 cm LVPW d 1.5 cm Ao Rtd 3.6 cm Inde x 1.8 cm/m2 LA Ds 4.8 cm IVSd 1.4 cm RWT 0.68 LVIDd 4.4 cm Inde x 2.1 cm/m2 LV Mass 260 g (122-174) LVIDs 2.5 cm LVM Index 126 g/m LV%fs 43 % LA Sng Plane LA Area 27 cm (8.8-23.4) L A Vol 95 ml Index 46 ml/m2 LA LngAx 6.4 cm RA Sng Plane RA Vol 35 ml Inde x 17 ml/m2 RA LngAx 4.8 cm RA Area 14 cm (8.3-19.5) Aorta Ao Asc 3 cm (2.1-3.4) LVOT Stroke Vol LVOT 2.1 cm LVOT LVOT Area 3.5 cm DOPPLER LVOT Stroke Vol LVOT TVI 22 cm LVOT CI 2.1 l/m/m LVOT SV 75 ml HR 59 bpm LVOT CO 4.4 l/min LVOT SVi 36 ml/m Signed 07/05/2019 10:49 AM Jo Ann Kraus MD Performing Organization Address City/State/Zipcode Phone Number [facility] [address] [place] [address] Vancomycin level, random (07/05/2019 5:14 AM CDT)Only the most recent of8 resultswithin the time period is included. Pathologist Sig nature Vancomycin, random 11.9 ug/mL [facility] ITAL Specimen Serum Performing Organization Address City/[facility]/Zipcode Phone Number [facility] DEPARTMENT OF PATHOLOGY AND [address] [place], [place] [address] [address] [facility] [address] [place] [address] VENIPUNC NEED PHYS SKILL,DX OR RX (07/02/2019 2:59 PM STRUCTURAL ENGINEER) Narrative Performed At Estela Padilla RN 07/02/2019 3:03 PM Midline Date/Time: 07/02/2019 2:59 PM Performed by: Kaykay Rain Authorized by: Milton Ellington Sr., MD Consent: Consent obtained: Verbal Consent given by: Patient Risks discussed: arterial puncture, incorrect place ment, nerve damage, infection, bleeding, superficial thrombu s and deep vein thrombus Alternatives discussed: No treatment, delayed cathy atment and alternative treatment [place] protocol: Procedure explained and questions ans wered to patient or proxy's satisfaction: yes Relevant documents present and verifi ed: yes Test results available and properly l abeled: yes Imaging studies available: yes Required blood products, implants, de vices, and special equipment available: yes Site/side marked: yes Immediately prior to procedure, a marlyn e out was called: yes Patient identity confirmed: Verball y with patient, arm band and hospital-assigned identification number Pre-procedure details: Hand hygiene: Hand hygiene performed prior to insertion Sterile barrier technique: All elemen ts of maximal sterile technique followed Skin preparation: ChloraPrep Skin preparation agent: Skin preparation agent comp letely dried prior to procedure Anesthesia (see MAR for exact dosages): Anesthesia method: Local infiltrati on Local anesthetic: Lidocaine 1% w/o epi Route of administration: Subcutaneo us Line Placement Details: Patient position: Flat Vessel Size (mm): 4.5. 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 Location: Right basilic Device Type: Non-valved Catheter size: 4 Fr Catheter to vein ratio: 31% Line Characteristics: Catheter Brand: BioFlo Midline External Catheter Length (cm): 0 Internal Catheter Length (cm): 10 Total Catheter Length (cm): 10 Catheter Lot Number: [id number] Catheter Expiration Date: 12/26/2020 Procedure Details: Landmarks identified: yes Ultrasound guidance: yes Sterile ultrasound techniques: Sterile gel and ster ile probe covers were used Number of attempts: 1 Number of PICC kits used during proce dure: 1 Purpose of procedure: Midline Place ment Patency/Placement: Flushes without difficulty, ex tension tubing placed, flushed with 10 mL normal saline, positive blood retur n and injection cap placed PICC placed utlizing ultrasound-guided Modified Bianka henry Technique: Yes Dressing/Securement: Catheter secur ement device and antimicrobial dressing applied Blood Loss Amount: Less than 20 mL Post-Procedure Details: Post-procedure: Dressing applied Patient tolerance of procedure: Maya erated well, no immediate complications Vancomycin level, trough (07/01/2019 2:30 PM STRUCTURAL ENGINEER) Vancomycin, 23.0 (HH) 10.0 - 20.0 [facility] trough Comment: ug/mL HOSPITAL Therapeutic Ranges: Peak 30.0 - 40.0 ug/mL Trough 10.0 - 20.0 ug/mL Specimen Serum Performing Organization Address City/State/Zipcode Phone Number [facility] DEPARTMENT OF PATHOLOGY AND [address] [place], [place] [address] [address] Surgical pathology request (06/30/2019 11:36 AM STRUCTURAL ENGINEER) [facility] DEPARTMENT OF PATHOLOGY AND GENOMIC MEDICINE Surgical pathology See link below [facility] DEPARTMENT OF report for PDF Lab PATHOLOGY AND Report GENOMIC MEDICINE Result status This is Final [facility] DEPARTMENT OF Report for PATHOLOGY AND [id number] GENOMIC MEDICINE Specimen Performing Organization Address City/State/Zipcode Phone Number [facility] DEPARTMENT OF PATHOLOGY AND [address] [place], [place] [address] GENOMIC MEDICINE IR Transjugular Liver Biopsy (06/30/2019 9:39 AM STRUCTURAL ENGINEER) Specimen Narrative Performed At Performing Radiologist EMERY Lauren MD Assistants None Anesthesia Type Moderate sedation was administered by the procedure nu rse and monitored by the procedure physician for a egla-jr-nvnb sedation time of 20 minutes. Lidocaine 1% was used for local anesthetic. Pre Procedure Diagnosis 53-year-old man with possible cirrhosis. . Post Procedure Diagnosis Status post CO2 right hepatic venogram with pressure m easurements and transjugular liver biopsy. Procedure 1. CO2 right hepatic venogram with press ure measurements. 2. Transjugular liver biopsy. Technique Written informed consent was obtained prior to the pro cedure. All elements of maximal sterile barrier technique were fol lowed. The patient's right neck was sterilely prepared and draped in the routine manner. Lidocaine 1% was used for local anesthetic. Using real-time ultrasound guidance, a 21-gauge microp uncture needle was used to access the right internal jugular vein. A 0.01 8 inch guidewire was advanced centrally under fluoroscopy. The needle w as removed and a micropuncture sheath system was placed. An ultrasound image documenting needle placement with in the patent internal jugular vein was not saved in the medical rec ord. A 0.035 inch Amplatz wire was then advanced through the microp uncture sheath and into the inferior vena cava. A long 9-Fr ench vascular sheath was then placed,and advanced over the guidewire into the right atrium. Right atrial pressure measures were then obtained. A 5-Moldovan multipurpose catheter was advanced over the g uidewire and used to select the right hepatic vein. A CO2 right hepatic venogram was performed. Pressure measure ments were also obtained in both the free and wedge positions. The 9-F rench vascular sheath was then advanced into the right hepatic vein. The transjugular liver biopsy system was advanced through the 9-Moldovan vascular sheath, and multiple 18-gauge core liver biopsy specimens were obtained and submitted to pathology. [facility] transjugular liver biopsy system and 9-Moldovan vascular sheath were then removed from the right internal jugular vein, and hemostasis was achieved with compression. The patient tolerated the procedure well. Radiation Dose Ka,r = 160 mGy Complications None Specimens Removed As described in the above report. Estimated Blood Loss Less than 5 mL Blood/Blood Products Administered None Grafts/Implants None Impression: 1. Normal CO2 right hepatic venogram 2. Successful transjugular liver biopsy was performed, as detailed above. 3. Pressure measurements: Right atrium: 9 mmHg Free hepatic: 11 mmHg Wedge hepatic: 15 mmHg [facility]-[id number] Procedure Note [facility], Radiology Results Incoming - 06/30/2019 4:50 PM STRUCTURAL ENGINEER Performing Radiologist Vamshi Lauren MD Assistants None Anesthesia Type Moderate sedation was administered by th e procedure nurse and monitored by the procedure physician for a wyvi-tz-zxjx sedation time of 20 minutes. Lidocaine 1% was used for local anesthetic. Pre Procedure Diagnosis 53-year-old man with possible cirrhosis. . Post Procedure Diagnosis Status post CO2 right hepatic venogram w ith pressure measurements and transjugular liver biopsy. Procedure 1. CO2 right hepatic venogram with press ure measurements. 2. Transjugular liver biopsy. Technique Written informed consent was obtained pr ior to the procedure. All elements of maximal sterile barrier technique were followed. The patient's right neck was sterilely prepared and draped in the routine manner. Lidocaine 1% was used for local anesthetic. Using real-time ultrasound guidance, a 2 1-gauge micropuncture needle was used to access the right internal jugular vein. A 0.018 inch guidewire was advanced centrally under fluoroscopy. The needle was removed and a micropuncture sheath system was placed. An ultrasound image documenting needle placement within the patent internal jugular vein was not saved in the medical record. A 0.035 inch Amplatz wire was then advanced through the micropuncture sheath and into the inferior vena cava. A long 9-Moldovan vascular sheath was then placed,and adva nced over the guidewire into the right atrium. Right atrial pressure measures were then obtained. A 5-Moldovan multipurpose catheter was advanced over the guidewire and used to select the right hepatic vein. A CO2 right hepatic venogram was performed. Pr essure measurements were also obtained in both the free and wedge positions. The 9-Moldovan vascular sheath was then advanced into the right hepatic vein. The transjugular liver biopsy system was advanced through the 9-Moldovan vascular sheath, and multiple 18-gauge core liver biopsy specimens were obtained and submitted to pathology. The transjugular liver biopsy system and 9-Moldovan vascular sheath were then removed from the right internal jugular vein, and hemostasis was achieved with compression . The patient tolerated the procedure well. Radiation Dose Ka,r = 160 mGy Complications None Specimens Removed As described in the above report. Estimated Blood Loss Less than 5 mL Blood/Blood Products Administered None Grafts/Implants None Impression: 1. Normal CO2 right hepatic venogram 2. Successful transjugular liver biopsy was performed, as detailed above. 3. Pressure measurements: Right atrium: 9 mmHg Free hepatic: 11 mmHg Wedge hepatic: 15 mmHg [facility]-[id number] Performing Organization Address City/State/Zipcopr Phone Number [facility] [address] [place] [address] ECG 12 lead (06/28/2019 9:41 AM STRUCTURAL ENGINEER)Only the most recent of4 resultswithin the time period is included. Pathologist Sig nature Ventricular rate 62 [facility] Atrial rate 62 [facility] MD interval 152 [facility] QRSD interval 144 [facility] QT interval 510 [facility] QTC interval 517 [facility] P axis 1 24 [facility] QRS axis 1 85 [facility] T wave axis 34 [facility] EKG impression Normal sinus [facility] rhythm-Right bundle branch block-Abnormal ECG-In automated comparison with ECG of 27-JUN-2019 08:13,-No significant change was found- Specimen Narrative Performed At This result has an attachment that is no t available. Performing Organization Address [facility] Phone Number [facility] M[facility] [address] [place] [address] Troponin (06/28/2019 9:13 AM STRUCTURAL ENGINEER)Only the most recent of4 resultswithin the time period is included. Troponin <0.006 0.000 - 0.040 [facility] Comment: ng/mL [facility]OSPITAL In patients suspected of having a myocardial infarctio n, along with all other appropriate clinical measures and actions includ ing ECG and other diagnostics as appropriate, measure Ultra TnI at 0 hrs and at 3 hrs. Myocardial infarction VERY LIKELY The 0 hr TnI level is > 0.10 ng/mL Myocardial infarction LIKELY The 0 hr TnI level is > 0.04 ng/mL and 3 hr level is i ncreased or decreased by at least 0.020 ng/mL Myocardial infarction VERY UNLIKELY Both the 0 hr and 3 hr TnI levels <= 0.04 ng/mL(within normal limits) OR 0 hr is > 0.04 ng/mL and 3 hr is increased OR decreased by less than 0.020 ng/mL Specimen Plasma specimen Performing Organization Address City/State/Zipcode Phone Number [facility] DEPARTMENT OF PATHOLOGY AND [address] [place], [place] [address] [facility] [address] [place] [address] IR Tunneled Dialysis Catheter Placement (06/23/2019 10:03 AM STRUCTURAL ENGINEER) Specimen Narrative Performed At PERFORMING RADIOLOGIST: CONI Petersen MD ASSISTANTS: None. ANESTHESIA TYPE: Moderate sedation was administered by the procedure nu rse and monitored by the procedure physician for a total nuqp-vw-gdzc se dation time of 8 minutes. Lidocaine 1% and lidocaine 1% with epinephrin e were used for local anesthetic. ANTIBIOTICS: None. PRE PROCEDURE DIAGNOSIS: Need for long-term dialysis POST PROCEDURE DIAGNOSIS: Status post tunneled right internal jugular vein h emodialysis catheter placement. PROCEDURE: Placement of a tunneled right internal jugular vei n hemodialysis catheter. TECHNIQUE: Written informed consent was obtained prior to the pro cedure. All elements of maximal sterile barrier technique were fol lowed. The patient's right neck and upper chest were sterilely prepared and draped in the routine manner. Under ultr asound guidance, documentation of vessel patency, needle access with pe rmanent recording, and reporting are performed followed by placement of a sheath in the right internal jugular vein. Using real ultrasound guidance, lidocaine 1% was admin istered to the overlying soft tissues via 25-gauge needle. Again, usi ng real-time ultrasound guidance, a 21-gauge micropuncture needle w as advanced successfully into the target vein. A 0.0 18 inch guidewire was advanced centrally through the needle un carmine fluoroscopy. The needle was removed and a micropuncture sheath syst em was then placed. The inner dilator and guidewire were then re moved, and a 0.035 inch Amplatz wire was advanced through t he micropuncture sheath and successfully in to the inferior vena cava. The infraclavicular fossa was anesthetized with lidoca ine 1% mixed with epinephrine. A skin incision was made, and a tunneling device was used to pass the tunneled hemodialysis catheter from the sk in entry site to the venotomy site. Attention was then returned to the venotomy site. The tract was then sequentially dilated, and a 19 cm long tip to cuff piedad neled hemodialysis catheter was then deployed through a peel-away sheath. The catheter tip was placed in the right atrium under fluoroscopic guidance. All ports were tested and demon strate adequate flow. The catheter was secured to the skin using 2-0 s ilk suture. The small venotomy incision was closed with 3-0 Vicryl sut ure and Dermabond. The patient tolerated the procedure well . RADIATION DOSE: Ka,r = 5 mGy COMPLICATIONS: None. SPECIMENS REMOVED: None. ESTIMATED BLOOD LOSS: Less than 2 mL. BLOOD PRODUCTS ADMINISTERED: None. GRAFTS/IMPLANTS: As described in the above report. IMPRESSION: Successful fluoroscopic-guided placement of a 19 cm lo ng tip to cuff tunneled hemodialysis catheter via the right interna l jugular vein with tip at superior cavoatrial junction . PLAN: -Catheter is ready for immediate use. [facility]-[id number] Procedure Note [facility], Radiology Results Incoming - 06/24/2019 7:31 AM STRUCTURAL ENGINEER PERFORMING RADIOLOGIST: Will Petersen MD ASSISTANTS: None. ANESTHESIA TYPE: Moderate sedation was administered by [facility] and monitored by the procedure physician for a total guha-zz-ivpn sedation time of 8 minutes. Lidocaine 1% and lidocaine 1% with epinephrine were used for local anesthetic. ANTIBIOTICS: None. PRE PROCEDURE DIAGNOSIS: Need for long-term dialysis POST PROCEDURE DIAGNOSIS: Status post tunneled right internal jug ular vein hemodialysis catheter placement. PROCEDURE: Placement of a tunneled right internal jugular vein hemodialysis catheter. TECHNIQUE: Written informed consent was obtained pr ior to the procedure. All elements of maximal sterile barrier technique were followed. The patient's right neck and upper chest were sterilely prepared and draped in the routine manner. Under ultrasound guidance, documentation of vessel patency, needle access with permanent recording, and reporting are performed followed by placement of a sheath in the right internal jugular vein. Using real ultrasound guidance, lidocain e 1% was administered to the overlying soft tissues via 25-gauge needle. Again, using real-time ultrasound guidance, a 21-gauge micropuncture needle was advanced successfully into the target vein. A 0.018 inch guidewire was advanced centrally through the needle under fluoroscopy. The needle was removed and a micropuncture sheath system was then placed. The inner dilator and guidewire were then removed, and a 0.035 inch Amplatz wire was advanced through the micropuncture sheath and successfully in to the inferior vena cava. The infraclavicular fossa was anesthetiz ed with lidocaine 1% mixed with epinephrine. A skin incision was made, and a tunneling device was used to pass the tunneled hemodialysis catheter from the skin entry site to the venotomy site. Attention was then returned to the venot denzel site. The tract was then sequentially dilated, and a 19 cm long tip to cuff tunneled hemodialysis catheter was then deployed through a peel-away sheath. The catheter tip was placed in the right atrium under fluoroscopic guidance. All ports were te sted and demonstrate adequate flow. The catheter was secured to the skin using 2-0 silk suture. The small venotomy incision was closed with 3-0 Vicryl suture and Dermabond. The patient tolerated the procedure well . RADIATION DOSE: Ka,r = 5 mGy COMPLICATIONS: None. SPECIMENS REMOVED: None. ESTIMATED BLOOD LOSS: Less than 2 mL. BLOOD PRODUCTS ADMINISTERED: None. GRAFTS/IMPLANTS: As described in the above report. IMPRESSION: Successful fluoroscopic-guided placement of a 19 cm long tip to cuff tunneled hemodialysis catheter via the right internal jugular vein with tip at superior cavoatrial junction. PLAN: -Catheter is ready for immediate use. [facility]-[id number] [facility] Organization Address City/State/Zipcode Phone Number [facility] [address] [place] [address] XR Abdomen 1 Vw Portable (06/21/2019 4:08 PM STRUCTURAL ENGINEER) Specimen Narrative Performed At EXAMINATION: XR ABDOMEN 1 VW PORTABLE [facility] CLINICAL HISTORY: Abd pain unspecified, BLQ abdomi nal pain rule out ileus or constipation COMPARISON: Fluoroscopic images from IMPRESSION: Artifact overlying the abdomen mildly li mits evaluation. No dilated gas-filled loops of large or small bowel ar e noted. The patient is status post cholecystectomy. The bones of the abdomen and pelvis are unremarkable. The lung bases are clear. [facility]-[id number] Procedure Note Interface, Radiology Results Incoming - 06/21/2019 6:05 PM STRUCTURAL ENGINEER EXAMINATION: XR ABDOMEN 1 VW PORTABLE CLINICAL HISTORY: Abd pain unspecified , BLQ abdominal pain rule out ileus or constipation COMPARISON: Fluoroscopic images from IMPRESSION: Artifact overlying the abdomen mildly li mits evaluation. No dilated gas-filled loops of large or small bowel are noted. The patient is status post cholecystectomy. The bones of the abdomen and pelvis are unremarkable. The lung bases are clear. [facility]-[id number] Performing Organization Address City/State/Zipcode Phone Number [facility] [address] [place] [address] Aerobic culture (06/20/2019 5:32 PM STRUCTURAL ENGINEER) Aerobic culture Klebsiella pneumoniae GONZALEZ METHODIS T isolate [facility] The performance characteristics of this assay on this isolate were validated by the Microbiology Laboratory at [facility]. This source has not been approve d by the .S. Food and Drug Administration. The results are n ot intended to be used as the sole means for clinical win gnosis or patient management. The Microbiology Laboratory i s authorized under the clinical Laboratory Improvement Amendments of 1988 (CLIA-88) to perform high complexit y testing. (A) Comment: Specimen Information Specimen Source: Drainage Specimen Site: Not otherwise specified Aerobic culture Enterococcus faecalis GONZALEZ BRAUNIS T isolate Recovered in Broth only: HOSPITAL The performance characteristics of this assay on this isolate were validated by the Microbiology Laboratory at [facility]. This source has not been approve d by the U.S. Food and Drug Administration. The results are n ot intended to be used as the sole means for clinical win gnosis or patient management. The Microbiology Laboratory i s authorized under the clinical Laboratory Improvement Amendments of 1988 (CLIA-88) to perform high complexit y testing. Enterococcus susceptible to high levels of Gentamicin. Susceptibility results indicate synergy with Penicilli ns and Vancomycin. This organism is Vancomycin Sensitive. (A) Comment: Previous comment was modified by MICTT at 19:18 on The performance characteristics of this assay on this isolate were validated by the Microbiology Laboratory at [facility]. This source has not been approved by the U.S. Food and Drug Administration. The results are not intended to be used as the sole means for clinical win gnosis or patient management. The Microbiology Laboratory is authorized under the clinical Laboratory Improvement Amendments of 1988 (CLIA-88) to perform high complexit y testing. Aerobic culture Klebsiella pneumoniae GONZALEZ WHITE T isolate [facility] The performance characteristics of this assay on this isolate were validated by the Microbiology Laboratory at [facility]. This source has not been approve d by the U.S. Food and Drug Administration. The results are n ot intended to be used as the sole means for clinical win gnosis or patient management. The Microbiology Laboratory i s authorized under the clinical Laboratory Improvement Amendments of 1987 (CLIA-88) to perform high complexit y testing. (A) Aerobic culture Citrobacter freundii complex [facility] isolate [facility] The performance characteristics of this assay on this isolate were validated by the Microbiology Laboratory at [facility]. This source has not been approve d by the U.S. Food and Drug Administration. The results are n ot intended to be used as the sole means for clinical win gnosis or patient management. The Microbiology Laboratory i s authorized under the clinical Laboratory Improvement Amendments of 1987 (CLIA-88) to perform high complexit y testing. (A) Comment: Previous value was Citrobact er freundii complex verified by I/AUT at 06:40 on 06/23/2019 Specimen Drainage - Not otherwise specified Organism Antibiotic Method Susceptibility Klebsiella pneumoniae Ampicillin CRYS >16 mcg/mL : Resistant Klebsiella pneumoniae Amoxicillin/Clavulanate CRYS 16 /8 mcg/mL: Resistant Klebsiella pneumoniae Amikacin CRYS <=4 mcg/mL : Susceptible Klebsiella pneumoniae Aztreonam CRYS <=1 mcg/mL : Susceptible Klebsiella pneumoniae Ceftazidime CRYS <=0.5 mcg/ mL: Susceptible Klebsiella pneumoniae Ciprofloxacin CRYS <=0.5 mcg/ mL: Susceptible Klebsiella pneumoniae Ceftriaxone CRYS <=0.5 mcg/ mL: Susceptible Klebsiella pneumoniae Cefuroxime Sodium CRYS 16 mcg/m L: Resistant Klebsiella pneumoniae Cefazolin CRYS 16 mcg/mL: Resistant Klebsiella pneumoniae Cefepime CRYS <=0.5 mcg/ mL: Susceptible Klebsiella pneumoniae Cefoxitin CRYS >16 mcg/mL : Resistant Klebsiella pneumoniae Gentamicin CRYS 2 mcg/mL: Susceptible Klebsiella pneumoniae Imipenem CRYS <=0.25 mcg /mL: Susceptible Klebsiella pneumoniae Levofloxacin CRYS <=1 mcg/mL : Susceptible Klebsiella pneumoniae Meropenem CRYS <=0.125 mc g/mL: Susceptible Klebsiella pneumoniae Tobramycin CRYS 1 mcg/mL: Susceptible Klebsiella pneumoniae Ampicillin/Sulbactam CRYS 16/8 mcg/mL: Resistant Klebsiella pneumoniae Trimethoprim/Sulfamethoxaz CRYS <=0.5/9.5 mcg/mL: ole Susceptible Klebsiella pneumoniae Tetracycline CRYS 4 mcg/mL: Susceptible Klebsiella pneumoniae Piperacillin/Tazobactam CRYS 16 /4 mcg/mL: Susceptible Klebsiella pneumoniae Ertapenem CRYS <=0.125 mc g/mL: Susceptible Klebsiella pneumoniae Tigecycline CRYS 2 mcg/mL: Susceptible Enterococcus faecalis Ampicillin CRYS 2 mcg/mL: Susceptible Enterococcus faecalis Erythromycin CRYS 1 mcg/mL: Resistant Enterococcus faecalis Gentamicin-Syn CRYS <=500 mcg/ mL: Susceptible Enterococcus faecalis Linezolid CRYS 2 mcg/mL: Susceptible Enterococcus faecalis Minocycline CRYS >8 mcg/mL: Resistant Enterococcus faecalis Vancomycin CRYS 1 mcg/mL: Susceptible Enterococcus faecalis Tigecycline CRYS <=0.125 mc g/mL: Susceptible Klebsiella pneumoniae Ampicillin CRYS 16 mcg/mL: Resistant Klebsiella pneumoniae Amoxicillin/Clavulanate CRYS <= 2/1 mcg/mL: Susceptible Klebsiella pneumoniae Amikacin CRYS <=4 mcg/mL : Susceptible Klebsiella pneumoniae Aztreonam CRYS <=1 mcg/mL : Susceptible Klebsiella pneumoniae Ceftazidime CRYS <=0.5 mcg/ mL: Susceptible Klebsiella pneumoniae Ciprofloxacin CRYS <=0.5 mcg/ mL: Susceptible Klebsiella pneumoniae Ceftriaxone CRYS <=0.5 mcg/ mL: Susceptible Klebsiella pneumoniae Cefuroxime Sodium CRYS <=4 mcg/ mL: Susceptible Klebsiella pneumoniae Cefazolin CRYS <=1 mcg/mL : Susceptible Klebsiella pneumoniae Cefepime CRYS <=0.5 mcg/ mL: Susceptible Klebsiella pneumoniae Cefoxitin CRYS <=4 mcg/mL : Susceptible Klebsiella pneumoniae Gentamicin CRYS 1 mcg/mL: Susceptible Klebsiella pneumoniae Imipenem CRYS 0.5 mcg/mL : Susceptible Klebsiella pneumoniae Levofloxacin CRYS <=1 mcg/mL : Susceptible Klebsiella pneumoniae Meropenem CRYS <=0.125 mc g/mL: Susceptible Klebsiella pneumoniae Tobramycin CRYS 1 mcg/mL: Susceptible Klebsiella pneumoniae Ampicillin/Sulbactam CRYS 4/2 m cg/mL: Susceptible Klebsiella pneumoniae Trimethoprim/Sulfamethoxaz CRYS <=0.5/9.5 mcg/mL: ole Susceptible Klebsiella pneumoniae Tetracycline CRYS <=1 mcg/mL : Susceptible Klebsiella pneumoniae Piperacillin/Tazobactam CRYS <= 2/4 mcg/mL: Susceptible Klebsiella pneumoniae Ertapenem CRYS <=0.125 mc g/mL: Susceptible Klebsiella pneumoniae Tigecycline CRYS <=0.5 mcg/ mL: Susceptible Citrobacter freundii Ampicillin CRYS >16 mcg/mL: Resistant complex Citrobacter freundii Amoxicillin/Clavulanate CRYS >16 /8 mcg/mL: Resistant complex Citrobacter freundii Amikacin CRYS <=4 mcg/mL: Susceptible complex Citrobacter freundii Aztreonam CRYS <=1 mcg/mL: Susceptible complex Citrobacter freundii Ceftazidime CRYS <=0.5 mcg/m L: Susceptible complex Citrobacter freundii Ciprofloxacin CRYS 1 mcg/mL: S usceptible complex Citrobacter freundii Ceftriaxone CRYS <=0.5 mcg/m L: Susceptible complex Citrobacter freundii Cefuroxime Sodium CRYS 16 mcg/mL : Resistant complex Citrobacter freundii Cefazolin CRYS >32 mcg/mL: Resistant complex Citrobacter freundii Cefepime CRYS <=0.5 mcg/m L: Susceptible complex Citrobacter freundii Cefoxitin CRYS >16 mcg/mL: Resistant complex Citrobacter freundii Gentamicin CRYS 2 mcg/mL: S usceptible complex Citrobacter freundii Imipenem CRYS <=0.25 mcg/ mL: Susceptible complex Citrobacter freundii Levofloxacin CRYS <=1 mcg/mL: Susceptible complex Citrobacter freundii Meropenem CRYS <=0.125 mcg /mL: Susceptible complex Citrobacter freundii Tobramycin CRYS 1 mcg/mL: S usceptible complex Citrobacter freundii Ampicillin/Sulbactam CRYS 8/4 mc g/mL: Resistant complex Citrobacter freundii Trimethoprim/Sulfamethoxaz CRYS <=0.5/9.5 mcg/mL: complex ole Susceptible Citrobacter freundii Tetracycline CRYS 4 mcg/mL: S usceptible complex Citrobacter freundii Piperacillin/Tazobactam CRYS 8/4 mcg/mL: Susceptible complex Citrobacter freundii Ertapenem CRYS <=0.125 mcg /mL: Susceptible complex Citrobacter freundii Tigecycline CRYS 2 mcg/mL: S usceptible complex Performing Organization Address City/State/Zipcode Phone Number [facility] DEPARTMENT OF PATHOLOGY AND [address] [place], [place] [address] [facility] [address] [address] Gram stain (06/20/2019 5:32 PM STRUCTURAL ENGINEER) Gram stain isolate Rare WBC's [facility] Many Gram negative rods HOSPITAL Rare Gram positive cocci in pairs Comment: Specimen Information Specimen Source: Drainage Specimen Site: Not otherwise specified Specimen Drainage - Not otherwise specified Performing Organization Address [facility]/Zipcode Phone Number [facility] DEPARTMENT OF PATHOLOGY AND [address] [place] [phone] Protein, urine, random (06/19/2019 7:06 PM STRUCTURAL ENGINEER) Pathologist Sig nature Protein, urine random 584 mg/dL [facility] Specimen Urine Performing Organization Address [facility] Phone Number [facility] DEPARTMENT OF PATHOLOGY AND [address] [place] [address] [place] [phone] Creatinine level, urine, random (06/19/2019 7:06 PM STRUCTURAL ENGINEER) Pathologist Sig nature Creatinine, urine, 99 mg/dL [facility] Specimen Urine Performing Organization Address [facility] Phone Number [facility] DEPARTMENT OF PATHOLOGY AND [address] [place] [phone] Anti smooth muscle Ab screen (06/19/2019 12:00 AM STRUCTURAL ENGINEER) Pathologist Sig nature Anti smooth muscle Not Detected Not-Detected [facility] Ab [facility] Specimen Blood Performing Organization Address [facility] Phone Number [facility] DEPARTMENT OF PATHOLOGY AND [address] [place] [phone] Anti mitochondria screen (06/19/2019 12:00 AM STRUCTURAL ENGINEER) Anti mitochondria Not Detected Not-Detected [facility] HOSPITAL Specimen Blood Performing Organization Address [facility] Cent[facility]ode Phone Number [facility] DEPARTMENT OF PATHOLOGY AND [address] [place] [phone] Urine culture (06/18/2019 7:24 AM STRUCTURAL ENGINEER)Only the most recent of2 resultswithin the time period is included. Urine culture No growth after 24 hours [facility] Comment: HOSPITAL Specimen Information Specimen Source: Urine Specimen Site: Clean catch Specimen Urine Performing Organization Address City/[facility] Centercode Phone Number [facility] DEPARTMENT OF PATHOLOGY AND [address] [place] [address] [phone] [address] Urinalysis screen and microscopy, with reflex to culture (06/18/2019 5:30 AM STRUCTURAL ENGINEER)Only the most recent of2 resultswithin the time period is included. Pathologist Sig nature Specimen site Clean catch [facility] Color, UA Yellow [facility] Appearance, UA Cloudy [facility] Specific gravity, 1.011 1.001 - 1.035 [facility] pH, UA 5.0 5.0 - 8.[address] [facility] Protein, UA 3+ (A) Negative [facility] Glucose, UA 1+ (A) Negative [facility] Ketones, UA Negative Negative [facility] Bilirubin, UA Negative Negative [facility] Blood, UA Small (A) Negative [facility] Nitrite, UA Negative Negative [facility] Urobilinogen, UA <2.0 <2.[address] [facility] Leukocyte esterase, Negative Negative [facility] WBC, UA 14 (H) 0 - 1 /HPF [facility] RBC, UA 1 0 - 5 /HPF [facility] Bacteria, UA Few None seen [facility] WBC clumps, UA Few (A) [facility] Yeast, UA None seen [facility] Yeast with None seen [facility] pseudohyphae, HOSPITAL Amorphous crystals Few [facility] Granular casts, UA 1 0 - 1 /LPF [facility] Specimen Urine Performing Organization Address City/State/Zipcode Phone Number [facility] DEPARTMENT OF PATHOLOGY AND [address] [place] [address] [phone] [address] Hepatitis B surface Ab, quantitative (06/18/2019 5:00 AM STRUCTURAL ENGINEER) Hepatitis B surface <3.10 IU/L [facility] Ab Comment: The anti-HBs is less than 10 IU/L and is therefore neg ative. There is no evidence of recovery from hepatitis B infection or evidence of antibody response to HBV vaccination. An anti-HBs result greater than or equal to 10 IU/L im plies immunity. For post-vaccination antibody testing guidel heather for the general public refer to MMWR April 19, 2005/Vol. 54 (No. 16);-, and for healthcare workers refer to MMWR Mar/Vol. 62(No. 10);-. Reference Interval: anti-HBs 9.99 IU/L or less ....... Negative 10.00 IU/L or greater .... Positive Results greater than 1,000.00 IU/L are reported as gre ater than 1,000.00 IU/L. This assay should not be used for blood donor screenin g, associated re-entry protocols, or for screening Human Cell, Tissues and Cellular and Tissue-Based Products (HCT/P) . Performed by [employer], [address] [place] [id number] [email or web address], Roberto Almaguer MD, Lab. Director Specimen Serum Performing Organization Address [facility] Centercopr Phone Number [facility] [address] [place] [address] [facility] [address] [place] [address] Ammonia level (06/18/2019 5:00 AM STRUCTURAL ENGINEER) Pathologist Sig nature Ammonia 63 (H) 16 - 60 umol/L [facility] Specimen Blood Performing Organization Address [facility] Phone Number [facility] DEPARTMENT OF PATHOLOGY AND [address] [place] [address] [address] Hepatitis C antibody (06/18/2019 4:00 AM STRUCTURAL ENGINEER) Pathologist Sig [facility] Hepatitis C Ab Non-reactive Non-reactive [facility] Specimen Serum Performing Organization Address [facility] Centercode Phone Number [facility] DEPARTMENT OF PATHOLOGY AND [address] [place] [address] [phone] [address] Alpha-1 antitrypsin level (06/18/2019 4:00 AM STRUCTURAL ENGINEER) Pathologist Sig [facility] Alpha-1 antitrypsin 166 90 - 200 mg/dL [facility] Specimen Plasma specimen Performing Organization Address [facility] Centercode Phone Number [facility] DEPARTMENT OF PATHOLOGY AND [address] [place] [address] [phone] [address] Hepatitis A antibody IgM (06/18/2019 4:00 AM STRUCTURAL ENGINEER) Pathologist Sig nature Hepatitis A IgM Non-reactive Non-reactive [facility] Specimen Serum Performing Organization Address City/[facility] Centercode Phone Number [facility] DEPARTMENT OF PATHOLOGY AND [address] [place] [address] [place] [address] Ceruloplasmin level (06/18/2019 4:00 AM STRUCTURAL ENGINEER) Pathologist Sig nature Ceruloplasmin 22 15 - 30 mg/dL [facility] Specimen Plasma specimen Performing Organization Address City/[facility] Centercode Phone Number [facility] DEPARTMENT OF PATHOLOGY AND [address] [place] [phone] Alpha fetoprotein (06/18/2019 4:00 AM STRUCTURAL ENGINEER) Alpha fetoprotein 1.6 0.0 - 8.3 [facility] Comment: ng/mL [facility] The [employer] 8000 AFP immunoassay was used. HOSPITAL Results obtained with different assay methods or kits should not be used interchangeably and may be differen t. Specimen Serum Performing Organization Address [facility] Centercode Phone Number [facility] DEPARTMENT OF PATHOLOGY AND [address] [place] [phone] Hepatitis B core antibody IgM (06/18/2019 4:00 AM STRUCTURAL ENGINEER) Pathologist Sig nature Hepatitis B core Non-reactive Non-reactive [facility] IgM HOSPITAL Specimen Serum Performing Organization Address City/[facility] Centercode Phone Number [facility] DEPARTMENT OF PATHOLOGY AND [address] [place] [address] [place] [phone] Hepatitis B core antibody total (06/18/2019 4:00 AM STRUCTURAL ENGINEER) Pathologist Sig nature Hepatitis B core Non-reactive Non-reactive [facility] total Ab HOSPITAL Specimen Serum Performing Organization Address City/[facility]/Zipcode Phone Number [facility] DEPARTMENT OF PATHOLOGY AND [address] [place] [phone] [place] [phone] Hepatitis B surface antibody (06/18/2019 4:00 AM STRUCTURAL ENGINEER) Pathologist Sig nature Hepatitis B surface Non-reactive Non-reactive [facility] Ab [facility] Specimen Serum Performing Organization Address City/[facility] Centercode Phone Number [facility] DEPARTMENT OF PATHOLOGY AND [address] [place] [phone] [place] [phone] Hepatitis B surface antigen (06/18/2019 4:00 AM STRUCTURAL ENGINEER) Pathologist Sig nature Hepatitis B surface Non-reactive Non-reactive [facility] Ag [facility] Specimen Serum Performing Organization Address City/[facility] Centercode Phone Number [facility] DEPARTMENT OF PATHOLOGY AND [address] [place] [address] [place] [phone] ANNE (06/18/2019 4:00 AM STRUCTURAL ENGINEER) ANNE screen Negative Negative [facility] Comment: HOSPITAL Test performed using [employer] DAPI ANNE kit (Indirect Immunofluorescence Assay) for Anti-Nuclear Antibody on [employer] 160 Analyzer. Specimen Blood Performing Organization Address City/[facility]erc[facility] Phone Number [facility] DEPARTMENT OF PATHOLOGY AND [address] [place] [phone] [place] [phone] GGT (06/18/2019 4:00 AM STRUCTURAL ENGINEER) Pathologist Sig [facility] GGT 80 (H) 0 - 59 U/L [facility] Specimen Plasma specimen Performing Organization Address [facility]erc[facility] Phone Number [facility] DEPARTMENT OF PATHOLOGY AND [address] [place], [place] [address] [address] [place] [phone] [place] Abdomen Complete (06/17/2019 4:48 PM STRUCTURAL ENGINEER) Specimen Narrative Performed At EXAM: US ABDOMEN COMPLETE [facility] CLINICAL DATA: 53 years Male Cirrho sis or Fatty Liver COMPARISON: June 17, 2019 FINDINGS: LIVER: There is increased echogenicity. No mass or int rahepatic ductal dilatation identified. PORTAL VEIN: Normal in diameter measuring 1.1 cm and p atent with normal hepatopetal flow. GALLBLADDER: Removed COMMON DUCT: 0.3 cm. PANCREAS: Unremarkable, although porti ons are obscured by shadowing. SPLEEN: 11 cm. KIDNEYS: Right kidney: The right kidney measures 11.9 cm. There is normal echogenicity. There are no focal masses. There are no calcifications There is no hydronephrosis. Left kidney: The left kidney measures 12.0 cm. There is normal echogenicity. There are no focal masses. There are no calcifications There is no hydronephrosis AORTA: Visualized aorta is nonaneurysm al. IVC: Visualized inferior vena cava is unremarkable. ASCITES: No free fluid or fluid collecti on. PLEURAL EFFUSION: No appreciable pleur al effusion. IMPRESSION: *Fatty infiltration of the liver Thank you for allowing us to participate in the care of your patient. [facility]-[id number] Procedure Note Interface, Radiology Results Incoming - 06/17/2019 4:59 PM STRUCTURAL ENGINEER EXAM: US ABDOMEN COMPLETE CLINICAL DATA: 53 years Male Cirrhosi s or Fatty Liver COMPARISON: June 17, 2019 FINDINGS: LIVER: There is increased echogenicity. No mass or intrahepatic ductal dilatation identified. PORTAL VEIN: Normal in diameter measurin g 1.1 cm and patent with normal hepatopetal flow. GALLBLADDER: Removed COMMON DUCT: 0.3 cm. PANCREAS: Unremarkable, although portio ns are obscured by shadowing. SPLEEN: 11 cm. KIDNEYS: Right kidney: The right kidney measures 11.9 cm. There is normal echogenicity. There are no focal masses. There are no calcifications There is no hydronephrosis. Left kidney: The left kidney measures 12.0 cm. There is normal echogenicity. There are no focal masses. There are no calcifications There is no hydronephrosis AORTA: Visualized aorta is nonaneurysma l. IVC: Visualized inferior vena cava is u nremarkable. ASCITES: No free fluid or fluid collecti on. PLEURAL EFFUSION: No appreciable pleura l effusion. IMPRESSION: *Fatty infiltration of the liver Thank you for allowing us to participate in the care of your patient. [facility]-[id number] Performing Organization Address City/State/Zipcode Phone Number [facility] [address] [place] [address] [place] Abdominal Doppler (06/17/2019 4:48 PM STRUCTURAL ENGINEER) Specimen Narrative Performed At EXAMINATION: US ABDOMINAL DOPPLER [facility] CLINICAL HISTORY: rule out portal HTN hx of cirrhosis COMPARISON: None. TECHNIQUE: Wagner scale, color Doppler and spectral wave form analysis of the hepatic and upper abdominal vasculat ure. IMPRESSION: PORTAL VEIN: Main portal vein measures 15 mm, with v elocity of 17.2 cm/sec. Main, right, and left portal veins are santiago nt with hepatopetal flow. HEPATIC VEINS: The middle, right and left hepatic ve ins are patent and demonstrate acceptable waveforms. HEPATIC ARTERIES: The proper, right, and left hepati c arteries are identified with appropriate waveforms. INFERIOR VENA CAVA: Patent. SUPERIOR MESENTERIC VEIN: Not visualized . SPLENIC ARTERY AND VEIN: Splenic artery and vein are identified and are patent. [facility]-[id number] Procedure Note Interface, Radiology Results Incoming - 06/17/2019 4:55 PM STRUCTURAL ENGINEER EXAMINATION: US ABDOMINAL DOPPLER CLINICAL HISTORY: rule out portal HTN hx of cirrhosis COMPARISON: None. TECHNIQUE: Wagner scale, color Doppler and spectral waveform analysis of the hepatic and upper abdominal vasculature. IMPRESSION: PORTAL VEIN: Main portal vein measures 15 mm, with velocity of 17.2 cm/sec. Main, right, and left portal veins are patent with hepatopetal flow. HEPATIC VEINS: The middle, right and le ft hepatic veins are patent and demonstrate acceptable waveforms. HEPATIC ARTERIES: The proper, right, an d left hepatic arteries are identified with appropriate waveforms. INFERIOR VENA CAVA: Patent. SUPERIOR MESENTERIC VEIN: Not visualized . SPLENIC ARTERY AND VEIN: Splenic artery and vein are identified and are patent. [facility]-[id number] Performing Organization Address City/State/Zipcode Phone Number [facility] [address] [place] [address] [place] Renal (06/17/2019 2:26 PM STRUCTURAL ENGINEER) Specimen Narrative Performed At EXAMINATION: [facility]: Flank pain stone d isease suspected COMPARISON: None. IMPRESSION: The right kidney measures 12 cm in jeanine gth. The left kidney measures 13.9 cm in le ngth. There is no renal mass, stone, cyst, or hydronephrosis . Echogenicity is normal. The urinary bladder is unremarkable. [facility]-[id number] Procedure Note Interface, Radiology Results Incoming - 06/17/2019 2:32 PM STRUCTURAL ENGINEER EXAMINATION: US RENAL CLINICAL HISTORY: Flank pain stone dis ease suspected COMPARISON: None. IMPRESSION: The right kidney measures 12 cm in juan ramon th. The left kidney measures 13.9 cm in jeanine gth. There is no renal mass, stone, cyst, or hydronephrosis. Echogenicity is normal. The urinary bladder is unremarkable. [facility]-[id number] Performing Organization Address City/[facility]/Zipcode Phone Number [facility] [address] [place] [address] Celiac disease reflexive cascade (06/17/2019 4:53 AM STRUCTURAL ENGINEER) IgA 449 (H) 68 - 408 mg/dL [facility] Comment: Total IgA is within or higher than established ranges. Tissue Transglutaminase, IgA to follow. REFERENCE INTERVAL: Immunoglobulin A Access complete set of age- and/or gender-specific ref erence intervals for this test in the [facility] ([employer]). Performed by [employer], [address] [place] [address] [id number] [email or web address], Roberto Almaguer MD, Lab. Director Specimen Serum Narrative Performed At [facility] called with reae back to Yu Kwon/ [facility] at 06/16/2019 [facility] 08:04 by NEFTALY. Performing Organization Address City/[facility]/Zipcode Phone Number [facility] [address] [place] [address] [facility] [address] [place] [address] Tissue transglutaminase Ab, IgA (06/17/2019 4:53 AM STRUCTURAL ENGINEER) Tissue 1 0 - 3 U/mL [facility] transglutaminase Ab, Comment: LAB IgA No further celiac testing to be performed. INTERPRETIVE INFORMATION: Tissue Transglutaminase (tTG ) Antibody, IgA 3 U/mL or less: Negative 4-10 U/mL: Weak Positive 11 U/mL or greater: Positive Presence of the tissue transglutaminase (tTG) IgA anti body is associated with glutensensitive enteropathies such as celiac disease and dermatitis herpetiformis. tTG IgA antibody concentrations greater than 40 U/mL usually correlate with results of duodenal biopsies consistent with a diagnosis of ce liac disease. For antibody concentrations greater or equal to 4 U/mL but less than or equal to 40 U/mL, additional testing for endomysial (KATELIN) IgA concentrations may improve the po sitive predictive value for disease. Performed by [employer], [address] [place] [address] [email or web address], Roberto Almaguer MD, Lab. Director Specimen Serum Narrative Performed At [facility] called with reyousif back to Yu Kwon/ [facility] at 06/16/2019 [facility] 08:04 by NEFTALY. Performing Organization Address City/State/Zipcode Phone Number [facility] [address] [place] [address] [facility] [address] [place] [address] Fecal calprotectin (06/15/2019 4:30 PM STRUCTURAL ENGINEER) Pathologist Sig nature Fecal calprotectin 57.64 <15.6-120mg/kg [facility] Specimen Blood Performing Organization Address City/State/Zipcode Phone Number [facility] DEPARTMENT OF PATHOLOGY AND [address] [place], [place] [address] [facility] [address] [place] [address] Spirometry, diffusion, lung volumes (06/15/2019 2:29 PM STRUCTURAL ENGINEER) Pathologist Sig nature FEV1 Pre 2.23 2.81 - 4.22 L [facility] FEV1/FVC % Pre 83.41 69.78 - 87.97 % [facility] FVC Pre 2.67 3.64 - 5.30 L [facility] PEF Pre 3.64 6.66 - 11.53 L/s [facility] FEF 25-75% Pre 2.18 1.80 - 4.96 L/s [facility] DLCO Pre 15.47 21.28 - 37.21 [facility] ml/(min*mmHg) DL/VA Pre 3.63 3.49 - 5.90 [facility] ml/(min*mmHg*L) VA SB Pre 4.26 4.88 - 7.61 L [facility] DLCOc Pre 16.48 21.28 - 37.21 [facility] ml/(min*mmHg) KCOc SB Pre 3.86 3.49 - 5.90 [facility] ml/(min*mmHg*L) Hb Pre 12.60 g(Hb)/dL [facility] R0.5IN Pre 1.36 3.06 - 3.06 [facility] cmH2O*s/L FRCpl Pre 2.47 2.36 - 4.34 L [facility] RV Pre 2.17 1.45 - 2.80 L [facility] TLC Pre 5.09 5.37 - 7.67 L [facility] RV % TLC Pre 42.72 24.87 - 42.83 % [facility] VC Pre 2.91 3.64 - 5.30 L [facility] ERV Pre 0.30 1.23 - 1.23 L [facility] IC Pre 2.62 3.07 - 3.07 L [facility] sR0.5IN Pre 4.12 cmH2O*s [facility] Raw Pre 2.87 3.06 - 3.06 [facility] cmH2O*s/L sGaw Predicted 0.12 0.08 - 0.08 [facility] 1/(cmH2O*s) FEV1 Predicted 3.51 [facility] FEV1 LLN 2.81 [facility] FEV1 % Pre of Predicted 63.4 % [facility] FVC Predicted 4.47 [facility] FVC LLN 3.64 [facility] FVC % Pre of Predicted 59.7 % [facility] FEV1/FVC % Predicted 79 [facility] FEV1/FVC % LLN 70 [facility] FEV1/FVC % Pre of 105.8 % [facility] Predicted FEF 25-75% Predicted 3.38 [facility] FEF 25-75% LLN 1.80 [facility] FEF 25-75% % Pre of 64.5 % [facility] Predicted PEF Predicted 9.09 [facility] PEF LLN 6.66 [facility] PEF % Pre of Predicted 40.1 % [facility] VC Predicted 4.47 [facility] VC LLN 3.64 [facility] VC % Pre of Predicted 65.2 % [facility] ERV Predicted 1.23 [facility] ERV LLN 1.23 [facility] ERV % Pre of Predicted 24.1 % [facility] FRCpl % Predicted 3.35 [facility] FRCpl % LLN 2.36 [facility] FRCpl % Pre of Predicted 73.7 % [facility] IC Predicted 3.07 [facility] IC LLN 3.07 [facility] IC % Pre of Predicted 85.2 % [facility] RV Predicted 2.12 [facility] RV LLN 1.45 [facility] RV % Pre of Predicted 102.4 % [facility] RV % TLC Predicted 34 [facility] RV % TLC LLN 25 [facility] RV % TLC % Pre of 126.2 % [facility] Predicted TLC Predicted 6.52 [facility] TLC LLN 5.37 [facility] TLC % Pre of Predicted 78.1 % [facility] Raw Predicted 3.06 [facility] Raw LLN 3.06 [facility] Raw % Pre of Predicted 93.8 % [facility] R0.5IN Predicted 3.06 [facility] R0.5IN LLN 3.06 [facility] R0.5IN % Pre of 44.4 % [facility] Predicted sGaw Predicted 0.08 [facility] sGaw LLN 0.08 [facility] sGaw % Pre of Predicted 138.0 % [facility] DLCO Predicted 29.25 [facility] DLCO LLN 21.28 [facility] DLCO % Pre of Predicted 52.9 % [facility] DLCOc Predicted 29.25 [facility] DLCOc LLN 21.28 [facility] DLCOc % Pre of Predicted 56.3 % [facility] DL/VA Predicted 4.69 [facility] DL/VA LLN 3.49 [facility] DL/VA % Pre of Predicted 77.3 % [facility] KCOc SB Predicted 4.69 [facility] KCOc SB LLN 3.49 [facility] KCOc SB % Pre of 82.3 % [facility] Predicted VA SB Predicted 6.24 [facility] VA SB LLN 4.88 [facility] VA SB % Pre of Predicted 68.3 % [facility] Specimen Narrative Performed At This result has an attachment that is no t available. Performing Organization Address City/State/Zipcode Phone Number [facility] [address] [place] [address] Us carotid duplex (06/15/2019 11:31 AM STRUCTURAL ENGINEER) Specimen Narrative Performed At [facility] Vascular U ltrasound Laboratory Carotid A rtery Duplex Report [address] [place] [address] For manufacturing quality engineer purposes, the categorization of the degree of the stenosis of this exam is based on criteria described i n the IAC carotid stenosis grading white paper( www.intersocietal.org/Va scular) and Thanh Nava., Александр CGrover., et al. Carotid artery stenosis: wagner-scale and Doppler US diagnosis-- Society of Radiologists in Ultrasound Consensus Conference. Radio logy. 2002; 229(2):340-6. Pat.Name: PAOLA KWONG Pat.ID: [id number] .Date: 06/15/2019 Refer.MD: MILTON ELLINGTON MD Exam Time: 11:04:00 AM Study Type:Ca rotid Height: 67in Weight: 212lb BSA: 2.07 m2 Ag e: 1965,53Y Sex: MALE BP: 116/68 Sonogrphr: Suad Greco TRAVIS, RVT Pat. Stat.:Inpatient Room: [address] ol: ED, CPT - 4: [address]63 Echo Deysi nt ID:[id number] Order ID: [id number] Reason for Study:Pre-op evaluation History / Clinical:Smoker, CAD, S/p NC, DM, HTN, HLD, Liver cirrhosis, Chest pain, Obesity Procedures: Colorflow, Grayscale/2D, Pul sed wave Doppler Race: C SUMMARY: PHYSICAL ASSESSMENT Blood Pulses Carotid Pressure Carotid Temporal Br uit Right 116/68 + + 0 Left IV + + 0 CAROTID ARTERY SCAN RIGHT: There is intimal thickening i n the common carotid artery. There is hard plaque noted in the bulb a nd the origin of the external carotid artery. The internal carotid art bhargav is clear. Colorflow is normal. LEFT: There is intimal thickening in the common carotid artery. There is hard plaque noted in the bulb a nd the origin of the internal carotid artery. The external carotid art bhargav is clear. Colorflow is normal. PRELIMINARY FINDINGS 1. Non-stenotic plaque in the right bu lb and at the origin of the right external carotid artery. 2. <50% stenosis in the bulb and left internal carotid artery. 3. Antegrade vertebral artery flow bilat erally. PHYSICIAN INTERPRETATION Bilateral carotid duplex examination dem onstrated atherosclerotic plaques in the bulbs/ CCAs. Less than 50% stenosis in the bulb and i nternal carotid artery, bilaterally. Both vertebral arteries are antegrade. FINDINGS: Carotid Findings: Right Left Verteb.Flw Antegrade Antegrade Subclavian Triphasic Triphasic MEASUREMENTS: DOPPLER Left CCA Dist CCA Dist PSV 85.6 cm/s CCA Dist EDV 21.2 cm/s Left CCA Mid CCA Mid PSV 98.2 cm/s CCA Mid EDV 15.7 cm/s Left CCA Prox CCA Prox PSV 102 cm/s CCA Prox EDV 18.9 cm/s Left ICA Dist ICA Dist PSV 71.1 cm/s ICA Dist EDV 25.5 cm/s Left ICA Mid ICA Mid PSV 85.7 cm/s ICA Mid EDV 25.2 cm/s Left ICA Prox ICA Prox PSV 55.4 cm/s ICA Prox EDV 19.6 cm/s Left ECA Prox ECA Prox PSV 104 cm/s ECA Prox EDV 11 cm/s Left SCA Prox SCA Prox PSV 147 cm/s Left Vertebral Vertebral PSV 46.9 cm/s Vertebral EDV 14.1 cm/s Right CCA Dist CCA Dist PSV 70.4 cm/s CCA Dist EDV 11.7 cm/s Right CCA Mid CCA Mid PSV 65.7 cm/s CCA Mid EDV 11.7 cm/s Right CCA Prox CCA Prox PSV 89.1 cm/s CCA Prox EDV 14.1 cm/s Right ICA Dist ICA Dist PSV 63.3 cm/s ICA Dist EDV 24 cm/s Right ICA Mid ICA Mid PSV 79.7 cm/s ICA Mid EDV 24 cm/s Right ICA Prox ICA Prox PSV 77.4 cm/s ICA Prox EDV 24 cm/s Right ECA Prox ECA Prox PSV 104 cm/s ECA Prox EDV 9.97 cm/s Right SCA Prox SCA Prox PSV 109 cm/s Right Vertebral Vertebral PSV 36.9 cm/s Vertebral EDV 10.6 cm/s Right ICA/CCA Ratio ICA/CCA PSV 1.18 Left ICA/CCA Ratio ICA/CCA PSV 0.564 Signed 06/15/2019 08:05 PM Valentín Vallejo MD, RPVI Procedure Note Interface, Radiology Results In - 2019 8:06 PM [facility] Vascular Ultrasound Laboratory Carotid Artery Dupl ex Report [address] [facility], [place] [address] , [place] [address] For manufacturing quality engineer purposes, the sarah gorization of the degree of the stenosis of this exam is based on criteria described in the IAC carotid stenosis grading white paper( www.intersocietal.org/Vascular) and Thanh Nava., Herbie Fountain, et al. Carotid artery stenosis: wagner-scale and Doppler US diagnosis--Society of Radiologists in Ultrasound Consensus Conference. Radiology. 2003 Nov; 229(2):340-6. Pat.Name: PAOLA KWONG Pat.I D: [id number] St.Date: 06/15/2019 Refer.MD: MILTON ELLINGTON MD Exam Time: 11:04:00 AM Study Type:Carotid Height: 67in Weigh t: 212lb BSA: 2.07 m2 Age: 6 1965,53Y Sex: MALE BP: 116/68 Sonogrphr: Suad Greco RDCS, RVT Pat. Stat.:Inpatient Room: [address] Vol: ED, CPT - 4: [address]35 Echo Event ID:[id number] Order ID: [id number] Reason for Study:Pre-op evaluation History / Clinical:Smoker, CAD, S/p NC, DM, HTN, HLD, Liver cirrhosis, Chest pain, Obesity Procedures: Colorflow, Grayscale/2D, Pul sed wave Doppler Race: C SUMMARY: PHYSICAL ASSESSMENT Blood Pulses Caroti d Pressure Carotid Temporal Bruit Right 116/68 + + 0 Left IV + + 0 CAROTID ARTERY SCAN RIGHT: There is intimal thickening in the common carotid artery. There is hard plaque noted in the bulb a nd the origin of the external carotid artery. The internal carotid art bhargav is clear. Colorflow is normal. LEFT: There is intimal thickening i n the common carotid artery. There is hard plaque noted in the bulb a nd the origin of the internal carotid artery. The external carotid art bhargav is clear. Colorflow is normal. PRELIMINARY FINDINGS 1. Non-stenotic plaque in the right bul b and at the origin of the right external carotid artery. 2. <50% stenosis in the bulb and left i nternal carotid artery. 3. Antegrade vertebral artery flow bilat erally. PHYSICIAN INTERPRETATION Bilateral carotid duplex examination dem onstrated atherosclerotic plaques in the bulbs/ CCAs. Less than 50% stenosis in the bulb and i nternal carotid artery, bilaterally. Both vertebral arteries are antegrade. FINDINGS: Carotid Findings: Right Left Verteb.Flw Antegrade Antegrade Subclavian Triphasic Triphasic MEASUREMENTS: DOPPLER Left CCA Dist CCA Dist PSV 85.6 cm/s CCA Dist EDV 21.2 cm/s Left CCA Mid CCA Mid PSV 98.2 cm/s CCA Mid EDV 15.7 cm/s Left CCA Prox CCA Prox PSV 102 cm/s CCA Prox EDV 18.9 cm/s Left ICA Dist ICA Dist PSV 71.1 cm/s ICA Dist EDV 25.5 cm/s Left ICA Mid ICA Mid PSV 85.7 cm/s ICA Mid EDV 25.2 cm/s Left ICA Prox ICA Prox PSV 55.4 cm/s ICA Prox EDV 19.6 cm/s Left ECA Prox ECA Prox PSV 104 cm/s ECA Prox EDV 11 cm/s Left SCA Prox SCA Prox PSV 147 cm/s Left Vertebral Vertebral PSV 46.9 cm/s Vert ebral EDV 14.1 cm/s Right CCA Dist CCA Dist PSV 70.4 cm/s CCA Dist EDV 11.7 cm/s Right CCA Mid CCA Mid PSV 65.7 cm/s CCA Mid EDV 11.7 cm/s Right CCA Prox CCA Prox PSV 89.1 cm/s CCA Prox EDV 14.1 cm/s Right ICA Dist ICA Dist PSV 63.3 cm/s ICA Dist EDV 24 cm/s Right ICA Mid ICA Mid PSV 79.7 cm/s ICA Mid EDV 24 cm/s Right ICA Prox ICA Prox PSV 77.4 cm/s ICA Prox EDV 24 cm/s Right ECA Prox ECA Prox PSV 104 cm/s ECA Prox EDV 9.97 cm/s Right SCA Prox SCA Prox PSV 109 cm/s Right Vertebral Vertebral PSV 36.9 cm/s Vert ebral EDV 10.6 cm/s Right ICA/CCA Ratio ICA/CCA PSV 1.18 Left ICA/CCA Ratio ICA/CCA PSV 0.564 Signed 06/15/2019 08:05 PM Valentín Vallejo MD, RPVI Performing Organization Address City/State/Zipcode Phone Number [facility] [address] [place] [address] CT Head Wo Contrast (06/14/2019 8:31 PM STRUCTURAL ENGINEER) Specimen Narrative Performed At EXAM: CT HEAD WO CONTRAST [facility] CLINICAL HISTORY: Seizure new nontraumatic >40 y rs, pain to right side of face numbness and tingling TECHNIQUE: Noncontrast enhanced images of the brain we re obtained from the skull base to the vertex. Both soft tissue and bon e reconstruction algorithms were performed. CT scans are performed using radiation dose reduction techniques (iterative reconstruction and/or automated exposure co ntrol). Technical factors are evaluated and adjusted to ensure appropria te moderation of exposure. Automated dose configuration management consultant nology is applied to adjust radiation exposure while achievi ng a diagnostic quality image. COMPARISON: 03/20/2018. FINDINGS: There is a subtle focal area of hyper attenuation invo lving the posterior/inferior right cerebellum which is new from the prior examination of 2018, reflective of a small infarct of uncertain but likely chronic timeframe. Furthermore, there is a new focus of hypoattenuation w ithin the right aspect of the corpus callosum genu, likely reflective of a small remote insult/infarct. 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 The wagner-white matter differentiation is otherwise pre served and without evidence of acute territorial infarction . There is no evidence for acute intracranial hemorrhage , mass, mass effect, hydrocephalus, or extra-axial fl uid collection. Orbits are unremarkable. Paranasal sinuses are clear . Mastoid air cells are normally pneumatized. Osseou s structures are intact. IMPRESSION: There is a subtle focal area of hyper attenuation invo lving the posterior/inferior right cerebellum which is new from the prior examination of 2018, reflective of a small infarct of uncertain but likely chronic timeframe. The wagner-white matter differentiation is otherwise pre served and without evidence of acute territorial infarction . No parenchymal hemorrhage. MRI of the brain can be obtained for further evaluatio n if clinically indicated. [facility]-[id number] Procedure Note [facility], Radiology Results Incoming - 06/14/2019 8:39 PM STRUCTURAL ENGINEER EXAM: CT HEAD WO CONTRAST CLINICAL HISTORY: Seizure new nontraum atic >40 yrs, pain to right side of face numbness and tingling TECHNIQUE: Noncontrast enhanced images o f the brain were obtained from the skull base to the vertex. Both soft tissue and bone reconstruction algorithms were performed. CT scans are performed using radiation d ose reduction techniques (iterative reconstruction and/or automated exposure control). Technical factors are evaluated and adjusted to ensure appropriate moderation of exposure. Automated dose configuration management consultant nology is applied to adjust radiation exposure while achieving a diagnostic quality image. COMPARISON: 03/20/2018. FINDINGS: There is a subtle focal area of hyper at tenuation involving the posterior/inferior right cerebellum which is new from the prior examination of 2018, reflective of a small infarct of uncertain but likely chronic timeframe. Furthermore, there is a new focus of hyp oattenuation within the right aspect of the corpus callosum genu, likely reflective of a small remote insult/infarct. 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 The wagner-white matter differentiation is otherwise preserved and without evidence of acute territorial infarction. There is no evidence for acute intracran ial hemorrhage, mass, mass effect, hydrocephalus, or extra-axial fluid collection. Orbits are unremarkable. Paranasal sinu ses are clear. Mastoid air cells are normally pneumatized. Osseous structures are intact. IMPRESSION: There is a subtle focal area of hyper at tenuation involving the posterior/inferior right cerebellum which is new from the prior examination of 2018, reflective of a small infarct of uncertain but likely chronic timeframe. The wagner-white matter differentiation is otherwise preserved and without evidence of acute territorial infarction. No parenchymal hemorrhage. MRI of the brain can be obtained for fur ther evaluation if clinically indicated. [facility]-[id number] Performing Organization Address [facility] Phone Number [facility] [address] [place] [address] Gastrointestinal panel (06/14/2019 5:48 AM STRUCTURAL ENGINEER)Only the most recent of2 results within the time period is included. Pathologist [facility] Gastrointestinal panel Negative for all pathogens tested: THEODOSIA Negative for Salmonella [facility] Negative for Campylobacter [facility] Negative for Diarrheagenic E coli/Shigella Negative for Shiga-like toxin-producing E coli Negative for Plesiomonas shigelloides Negative for Yersinia enterocolitica Negative for Vibrio species Negative for Clostridium difficile (Toxin A/B) Negative for Cryptosporidium Negative for Giardia lamblia Negative for Cyclospora cayeteanensis Negative for Entamoeba histolytica Negative for Adenovirus F 40/41 Negative for Astrovirus Negative for Norovirus GI/GII Negative for Rotavirus A Negative for Sapovirus Negative for Clostridium difficile toxin Negative for E coli 0157 This real-time PCR assay detects the presence of nucle ic acids (RNA or DNA) for the gastrointestinal pathogens listed. A result of "Not-detected" does not exclude the possib ility of the presence of one or more pathogens at concentrat ions less than the detectable limits of the assay. Comment: Specimen Information Specimen Source: Stool Specimen Site: Nonpreserved Specimen Stool - Nonpreserved Performing Organization Address [facility] Phone Number [facility] DEPARTMENT OF PATHOLOGY AND [address] [place], [place] [address] GENOMIC [address] [address] Thyroid stimulating hormone (06/14/2019 5:14 AM STRUCTURAL ENGINEER) Pathologist Sig nature TSH 1.95 0.27 - 4.20 uIU/mL [facility] ITAL Specimen Plasma specimen Performing Organization Address [facility]/State/Zipcode Phone Number [facility] DEPARTMENT OF PATHOLOGY AND [address] [place] [address] [phone] [address] T4, free (06/14/2019 5:14 AM STRUCTURAL ENGINEER) Pathologist Sig nature T4, free 0.8 (L) 0.9 - 1.7 ng/dL [facility] L Specimen Plasma specimen Performing Organization Address City/[facility]/Zipcode Phone Number [facility] DEPARTMENT OF PATHOLOGY AND [address] [place] [address] [phone] [address] Hemoglobin A1c (06/14/2019 5:14 AM STRUCTURAL ENGINEER) Hemoglobin A1C 12.6 (H) 4.0 - 5.6 % [facility] Comment: HOSPITAL HbA1c cutoffs for diagnosing diabetes: 4.0% - 5.6% = normal 5.7% - 6.4% = increased risk for diabetes (prediabetes )9 >=6.5% = diabetes9 Goals for glycemic control (ADA 2016) < 7.0% Target for non adults with diabetes. More or less stringent targets may be appropriate for individual patients. <7.5% Target for Children and adolescents with type 1 diabetes. Specimen Blood Performing Organization Address City/[facility]/Zipcode Phone Number [facility] DEPARTMENT OF PATHOLOGY AND [address] [place] [address] [phone] [address] Lipid panel (06/14/2019 5:14 AM STRUCTURAL ENGINEER) Cholesterol 177 <200 mg/dL [facility] Triglycerides 407 (H) <150 mg/dL [facility] HDL cholesterol 32 (L) >40 mg/dL [facility] LDL cholesterol 104 (H)Comment: <100 mg/dL THE[facility]OSIA Result obtained by [facility] direct [facility] measurement [facility] Comment: [facility] Total Cholesterol (mg/dL) HOSPIT AL <200 Desirable 200-239 Borderline-high >=240 High Triglycerides (mg/dL) <150 Normal 150-199 Borderline-high 200-499 High >=500 Very high HDL Cholesterol (mg/dL) <40 Low (male) <40 Low (female) LDL Cholesterol (mg/dL) <100 Optimal 100-129 Near or above optimal 130-159 Borderline-high 160-189 High >=190 Very high Risk Catergories that modify LDL goals. Risk Catergories LDL goal (mg/d L) CHD and CHD risk equivalent <100 (10-year risk >20%) Multiple (2+) risk factors <130 (10-year risk =<20%) 0-1 risk factors <160 (<10-year risk) Defining levels of lipids in metabolic syndrome Triglycerides >=150 mg/dL HDL Cholesterol Men <40 mg /dL Women <40 mg/ dL Non-HDL cholesterol is a second target for therapy in persons with high triglycerides (>=200 mg/dL) Specimen Plasma specimen Performing Organization Address City/[facility] Phone Number [facility] DEPARTMENT OF PATHOLOGY AND [address] [place] [address] [phone] [address] Manual differential (06/14/2019 4:59 AM STRUCTURAL ENGINEER) Manual differential PERFORMED [facility] Neutrophils 53.0 39.0 - 69.0 % [facility] Lymphocytes 36.0 25.0 - 45.0 % [facility] Monocytes 6.0 0.0 - 10.0 % [facility] Eosinophils 4.0 0.0 - 5.0 % [facility] Basophils 1.0 0.0 - 1.0 % [facility] Metamyelocytes 0 % [facility] Promyelocytes 0 % [facility] Platelet slide review Rebekah adequate [facility] Anisocytosis Moderate [facility] Polychromasia Moderate [facility] Ovalocytes Moderate [facility] Specimen Performing Organization Address [facility] Phone Number [facility] DEPARTMENT OF PATHOLOGY AND [address] [place] [address] [phone] [address] Influenza antigen (06/12/2019 9:15 PM STRUCTURAL ENGINEER) Influenza antigen Negative for Influenza A/B antigen. [facility] Comment: HOSPITAL Specimen Information Specimen Source: Nares Specimen Site: Right Specimen Nares - Right Performing Organization Address [facility] Phone Number [facility] DEPARTMENT OF PATHOLOGY AND [address] [place] [address] [phone] [address] XR Chest 1 Vw Portable (06/12/2019 8:55 PM STRUCTURAL ENGINEER) Specimen Narrative Performed At EXAMINATION: XR CHEST 1 VW PORTABLE [facility] CLINICAL HISTORY: tachy COMPARISON: 03/20/2018 IMPRESSION: No radiographic evidence for acute cardi opulmonary process. Cardiomediastinal silhouette is within n ormal limits of size. No focal or confluent airspace consolidation is seen o n this single AP plane to suggest acute pneumonia. No sizable pleural e ffusion. No pneumothorax identified. No acute osseous abnormalities are visua lized. [facility]-[id number] Procedure Note Hm Interface, Radiology Results Incoming - 06/12/2019 9:01 PM STRUCTURAL ENGINEER EXAMINATION: XR CHEST 1 VW PORTABLE CLINICAL HISTORY: tachy COMPARISON: 03/20/2018 IMPRESSION: No radiographic evidence for acute cardi opulmonary process. Cardiomediastinal silhouette is within n ormal limits of size. No focal or confluent airspace consolida tion is seen on this single AP plane to suggest acute pneumonia. No sizable pleural effusion. No pneumothorax identified. No acute osseous abnormalities are visua lized. [facility]-[id number] Performing Organization Address City/State/Zipcode Phone Number [facility] [address] [place] [address] ECG ED Preliminary Interpretation - Not an Order (06/12/2019 7:50 PM STRUCTURAL ENGINEER) Narrative Performed At Guillermo Jeffery MD 06/22/2019 10 :44 AM ECG ED Preliminary Interpretation - Not an Order Performed by: Guillermo Jeffery MD Authorized by: Guillermo Jeffery MD ECG reviewed by ED Physician in the abse nce of a absence management consultant: yes Previous ECG: Previous ECG: Unavailable Interpretation: Interpretation: abnormal Rate: ECG rate: 113 ECG rate assessment: tachycardic Rhythm: Rhythm: sinus tachycardia Ectopy: Ectopy: none QRS: QRS axis: Normal QRS intervals: Normal Conduction: Conduction: abnormal Abnormal conduction: LPFB ST segments: ST segments: Normal Other findings: Other findings: prolonged qTc interval Partial thromboplastin time, activated (06/12/2019 7:49 PM STRUCTURAL ENGINEER) PTT 28.1 23.0 - 36.0 [facility] Comment: sec HOSPITAL PTT therapeutic range for unfractionated heparin is 61.0-112.0 seconds which corresponds to Anti-Xa 0.3-0.7 U/ml. Specimen Blood Performing Organization Address City/State/Zipcode Phone Number [facility] DEPARTMENT OF PATHOLOGY AND [address] [place], [place] [phone] [address] B natriuretic peptide (06/12/2019 7:49 PM STRUCTURAL ENGINEER) Pathologist Sig nature BNP 53 0 - 100 pg/mL [facility] Specimen Blood Narrative Performed At [facility] results called to and read back by [facility] DEPARTMEN T OF PATHOLOGY AND GENOMIC TOSHIA PEREZ RN LIZBETH (name/location) MEDICINE at _ 06/12/2019 20:51 BY Performing Organization Address City/State/Zipcode Phone Number [facility] DEPARTMENT OF PATHOLOGY AND [address] [place] [address] [phone] [address] Comprehensive metabolic panel (06/12/2019 7:49 PM STRUCTURAL ENGINEER) Sodium 137 135 - 148 [facility] mEq/L [facility] Potassium 3.9 3.5 - 5.0 [facility] mEq/L [facility] Chloride 103 98 - 112 mEq/L [facility] CO2 19 (L) 24 - 31 mEq/L [facility] Anion gap 15@ANIO 7 - 15 mEq/L [facility] BUN 25 (H) 6 - 20 mg/dL [facility] Creatinine 2.04 (H) 0.70 - 1.20 [facility] mg/dL [facility]OSPITAL Glucose 519 (HH) 65 - 99 mg/dL [facility] Calcium 10.1 8.3 - 10.2 [facility] mg/dL [facility] Protein 8.4 (H) 6.3 - 8.3 g/dL [facility] Comment: HOSPITAL Nhppncn0679.6-7.0 g/dL 1 wmoe4580.4-7.6 g/dL 7 months-9xrff310.1-7.3 g/dL 1-2 .6-7.5 g/dL >3 jfsvo183.0-8.0 g/dL 18-0212007.3-8.3 g/dL Albumin 3.1 (L) 3.5 - 5.0 g/dL [facility] A/G ratio 0.6 (L) 0.7 - 3.[address] [facility] Alkaline phosphatase 166 (H) 40 - 129 U/L [facility] AST 23 10 - 50 U/L [facility] ALT 24 5 - 50 U/L [facility] Total bilirubin 0.3 0.0 - 1.2 [facility] mg/dL HOSPITAL Specimen Plasma specimen Performing Organization Address City/State/Zipcode Phone Number [facility] DEPARTMENT OF PATHOLOGY AND [address] [place], [place] [phone] [facility] [address] [place] [address] after 10/13/2018 Insurance Payer Benefit Plan / Subscriber ID Effective Dates Phone Addre ss Type Group Isis Parenting [facility] xxxxxxxxxxxx 2019-Presen Exchange CHOICE EXCHANGE EXCHANGE t [employer] Advance Directives For more information, please contact: [phone] Type Date Recorded Patient Network Management Specialist Explanati on Advance Directives, Living 03/20/2018 10:24 PM Will and Medical Power of Communication Skills Instructor Code Status Date Activated Date Inactivated Comments [...]
--- OUTSIDE RECORDS SUMMARY | 2019-10-14 17:22 | XMS REPORT | Clinical Summary ---
:1965 Author Organization [facility] Address [address] [place] [address] Care Team Providers Name Role Phone MD Jere Primary Care Provider Allergies Active Allergy Reactions Severity Noted Date Comments Codeine Hives 01/06/2019 Also gives him headaches Hydrocodone-Acetaminophen Hives 01/06/2019 Morphine Hives 01/06/2019 Medications Medication Sig Dispensed Refills Start End Date Status Date aspirin 81 MG Take 81 mg by 0 Ac tive chewable tablet mouth daily. citalopram (CELEXA) Take 20 mg by 0 Active 20 MG tablet mouth daily. gabapentin Take 300 mg by 0 Acti ve (NEURONTIN) 300 MG mouth daily. capsule clopidogrel Take 75 mg by 0 Acti ve (PLAVIX) 75 mg mouth daily. tablet simvastatin (ZOCOR) Take 80 mg by 0 Active 80 MG tablet mouth daily. spironolactone Take 25 mg by 0 A ctive (ALDACTONE) 25 MG mouth daily. tablet levETIRAcetam Take 500 mg by 0 A ctive (KEPPRA) 500 MG mouth daily. tablet insulin 70/30, Inject 80 Units 0 Active insulin NPH-insulin subcutaneously 2 regular, (HUMULIN (two) times daily 70/30) 100 unit/mL before meals. (70-30) injection travoprost Place 1 drop into 0 A ctive (TRAVATAN Z) 0.004 both eyes nightly. % Drop ophthalmic drops furosemide (LASIX) Take 1 tablet (20 30 tablet 0 Active 20 MG tablet mg total) by mouth 9 daily. metoprolol Take 1 tablet (50 30 tablet 0 A ctive (TOPROL-XL) 50 MG mg total) by mouth 9 24 hr tablet daily. ranolazine (RANEXA) Take 1 tablet (500 60 tablet 0 Active 500 MG 12 hr tablet mg total) by mouth 9 2 (two) times daily. furosemide (LASIX) Take 40 mg by 0 0 Discontinued 40 MG tablet mouth 2 (two) 19 times daily. Active Problems Problem Noted Date Subdural hematoma due to concussion, with loss of cons ciousness, 01/08/2019 subsequent encounter Unstable angina 01/08/2019 Hyperglycemia due to type 2 diabetes mellitus 01/09/20 19 Hypertension 01/08/2019 CKD (chronic kidney disease) 01/08/2019 Encounters Date Type Specialty Care Team Description 01/10/2019 Orders Only General Internal Medicine 01/06/2019 - Hospital Encounter General Internal Bershad, Jamel Subd ural hematoma due to concussion, with loss of consciousness, subsequent encounter (Primary Dx); 01/11/2019 Guillermo Mckenzie MD Diabetic ketoacidosis without coma assoc iated with type 2 diabetes mellitus (HCC); Robert, Unstable angina (HCC); Marcelino Sky MD Post-traumatic subdural hematoma, withou t loss of consciousness, initial encounter (HCC); Tanvir Hammond, Type 2 diab etes mellitus with hyperglycemia, unspecified whether residential insulin use (HCC); Jessica Cruz MD Type 2 diabetes mellitus with hyperglyce cristóbal, without long-term current use of insulin (HCC); Jude Garciaash Essential hy pertension; D Other forms of angina pectoris (HCC) Julia Chavis MD 01/06/2019 Travel after 10/13/2018 Family History Medical History Relation Name Comments No Known Problem Father Heart disease Mother Hypertension Mother Relation Name Status Comments Father Mother Social History Tobacco Use Types Packs/Day Years Used Date Current Every Day Smoker 1 0 Smokeless Tobacco: Never Used Tobacco Cessation: Ready to Quit: No; Co unseling Given: Yes Comments: smokes 1 pack a day, started a gain 3 years ago Alcohol Use Drinks/Week oz/Week Comments No Alcohol Habits Answer Date Recorded How often do you have a drink containing alcohol? Never 01/06/2019 How many drinks containing alcohol do you have on a typical Not asked day when you are drinking? How often do you have six or more drinks on one occasion? No t asked Sex Assigned at Date Recorded Not on file Job Start Date Occupation Industry Not on file Not on file Not on file Travel History Travel Start Travel End No recent travel history available. Last Filed Vital Signs Vital Sign Reading Time Taken Blood Pressure 136/71 01/11/2019 12:30 PM CDT Pulse 80 01/11/2019 12:30 PM CDT Temperature 36 C (96.8 F) 01/11/2019 12:30 PM CDT Respiratory Rate 18 01/11/2019 12:30 PM CDT Oxygen Saturation 95% 01/11/2019 12:30 PM CDT Inhaled Oxygen Concentration - - Weight 103 kg (227 lb) 01/06/2019 5:30 PM CDT Height 170.2 cm (5' 7") 01/06/2019 5:30 PM CDT Body Mass Index 35.55 01/06/2019 5:30 PM CDT Plan of Treatment Not on file Procedures Procedure Name Priority Date/Time Associated Comments Diagnosis RHYTHM STRIP - SCAN 01/12/2019 3:42 PM CDT POCT-GLUCOSE METER Routine 01/11/2019 12:15 Resul ts for this PM CDT procedure are i n the results section. CBC W/PLT COUNT & Routine 01/11/2019 5:03 Result s for this AUTO DIFFERENTIAL AM CDT procedure are in the results section. BASIC METABOLIC PANEL Routine 01/11/2019 5:03 Re sults for this (7) AM CDT procedure are i n the results section. CBC W/PLT COUNT & Routine 01/11/2019 5:03 Result s for this AUTO DIFFERENTIAL AM CDT procedure are in the results section. POCT-GLUCOSE METER Routine 01/10/2019 8:31 Resul ts for this PM CDT procedure are i n the results section. POCT-GLUCOSE METER Routine 01/10/2019 5:28 Resul ts for this PM CDT procedure are i n the results section. CT CHEST WITHOUT IV Routine 01/10/2019 11:31 Resu lts for this CONTRAST AM CDT procedure are i n the results section. CT BRAIN WITHOUT IV Routine 01/10/2019 11:31 Resu lts for this CONTRAST AM CDT procedure are i n the results section. D-DIMER Routine 01/10/2019 11:00 Results for this AM CDT procedure are i n the results section. XR CHEST 1 VIEW STAT 01/10/2019 7:16 Results for this PORTABLE/BEDSIDE AM CDT procedure a re in the results section. ECG 12-LEAD STAT 01/10/2019 6:30 Results for this AM CDT procedure are i n the results section. CBC W/PLT COUNT & Routine 01/10/2019 6:11 Result s for this AUTO DIFFERENTIAL AM CDT procedure are in the results section. TROPONIN I STAT 01/10/2019 6:11 Results for this AM CDT procedure are i n the results section. B-TYPE NATRIURETIC Routine 01/10/2019 6:11 Resul ts for this FACTOR (BNP) AM CDT procedure are i n the results section. CBC W/PLT COUNT & Routine 01/10/2019 6:11 Result s for this AUTO DIFFERENTIAL AM CDT procedure are in the results section. BASIC METABOLIC PANEL Routine 01/10/2019 6:11 Re sults for this (7) AM CDT procedure are i n the results section. ECG 12-LEAD Routine 01/10/2019 6:01 Results for this AM CDT procedure are i n the results section. ECG 12-LEAD Routine 01/10/2019 6:01 AM CDT Procedure Note - Interface, External Ris In - 01/10/2019 6:05 AM CDT Ventricular Rate 71 BPM Atrial Rate 71 BPM P-R Interval 142 ms QRS Duration 144 ms Q-T Interval 442 ms QTC Calculation(Bazett) 480 ms P [place] 29 degrees R [place] 88 degrees T [place] 27 degrees Normal sinus rhythm Right bundle branch block Abnormal ECG When compared with ECG of 13:40, No significant change was fo und TROPONIN I Routine 01/09/2019 11:14 PM CDT Resu lts for this procedure are i n the results section . POCT-GLUCOSE METER Routine 01/09/2019 9:16 PM CDT Results for this procedure are i n the results section . TROPONIN I Routine 01/09/2019 6:27 PM CDT Resu lts for this procedure are i n the results section . POCT-GLUCOSE METER Routine 01/09/2019 6:03 PM CDT Results for this procedure are i n the results section . POCT-GLUCOSE METER Routine 01/09/2019 12:10 PM CDT Results for this procedure are i n the results section . POCT-GLUCOSE METER Routine 01/09/2019 8:08 AM CDT Results for this procedure are i n the results section . CBC W/PLT COUNT & AUTO Routine 01/09/2019 4:35 AM CDT Results for this DIFFERENTIAL procedure are i n the results section . BASIC METABOLIC PANEL (7) Routine 01/09/2019 4:35 AM CDT Results for this procedure are i n the results section . CBC W/PLT COUNT & AUTO Routine 01/09/2019 4:35 AM CDT Results for this DIFFERENTIAL procedure are i n the results section . APTT Routine 01/09/2019 4:35 AM CDT Resu lts for this procedure are i n the results section . POCT-GLUCOSE METER Routine 01/08/2019 10:07 PM CDT Results for this procedure are i n the results section . ECHOCARDIOGRAM REPORT - SCAN 01/08/2019 9:20 PM CDT POCT-GLUCOSE METER Routine 01/08/2019 5:02 PM CDT Results for this procedure are i n the results section . PT/APTT Routine 01/08/2019 4:03 PM CDT Resu lts for this procedure are i n the results section . BASIC METABOLIC PANEL (7) Routine 01/08/2019 4:03 PM CDT Results for this procedure are i n the results section . APTT Routine 01/08/2019 4:03 PM CDT Resu lts for this procedure are i n the results section . POCT-GLUCOSE METER Routine 01/08/2019 11:49 AM CDT Results for this procedure are i n the results section . POCT-GLUCOSE METER Routine 01/08/2019 7:33 AM CDT Results for this procedure are i n the results section . APTT Routine 01/08/2019 4:27 AM CDT Resu lts for this procedure are i n the results section . CBC W/PLT COUNT & AUTO Routine 01/08/2019 4:22 AM CDT Results for this DIFFERENTIAL procedure are i n the results section . CBC W/PLT COUNT & AUTO Routine 01/08/2019 4:22 AM CDT Results for this DIFFERENTIAL procedure are i n the results section . POCT-GLUCOSE METER Routine 01/07/2019 10:08 PM CDT Results for this procedure are i n the results section . POCT-GLUCOSE METER Routine 01/07/2019 6:41 PM CDT Results for this procedure are i n the results section . APTT Routine 01/07/2019 6:40 PM CDT Resu lts for this procedure are i n the results section . ECHO W CONTRAST & DOPPLER TIANNA 01/07/2019 4:16 PM CDT Results for this procedure are i n the results section . POCT-GLUCOSE METER Routine 01/07/2019 2:25 PM CDT Results for this procedure are i n the results section . ECG 12-LEAD Routine 01/07/2019 1:40 PM CDT Resu lts for this procedure are i n the results section . TROPONIN I Routine 01/07/2019 1:21 PM CDT Resu lts for this procedure are i n the results section . POCT-GLUCOSE METER Routine 01/07/2019 12:59 PM CDT Results for this procedure are i n the results section . POCT-GLUCOSE METER Routine 01/07/2019 11:58 AM CDT Results for this procedure are i n the results section . APTT Routine 01/07/2019 11:53 AM CDT Resu lts for this procedure are i n the results section . POCT-GLUCOSE METER Routine 01/07/2019 11:03 AM CDT Results for this procedure are i n the results section . POCT-GLUCOSE METER Routine 01/07/2019 10:19 AM CDT Results for this procedure are i n the results section . POCT-GLUCOSE METER Routine 01/07/2019 9:09 AM CDT Results for this procedure are i n the results section . POCT-GLUCOSE METER Routine 01/07/2019 8:04 AM CDT Results for this procedure are i n the results section . POCT-GLUCOSE METER Routine 01/07/2019 6:56 AM CDT Results for this procedure are i n the results section . CBC W/PLT COUNT & AUTO Routine 01/07/2019 6:01 AM CDT Results for this DIFFERENTIAL procedure are i n the results section . APTT Routine 01/07/2019 6:01 AM CDT Resu lts for this procedure are i n the results section . TROPONIN I Routine 01/07/2019 6:01 AM CDT Resu lts for this procedure are i n the results section . CBC W/PLT COUNT & AUTO Routine 01/07/2019 6:01 AM CDT Results for this DIFFERENTIAL procedure are i n the results section . PHOSPHORUS Routine 01/07/2019 6:01 AM CDT Resu lts for this procedure are i n the results section . MAGNESIUM Routine 01/07/2019 6:01 AM CDT Resu lts for this procedure are i n the results section . BASIC METABOLIC PANEL (7) Routine 01/07/2019 6:01 AM CDT Results for this procedure are i n the results section . POCT-GLUCOSE METER Routine 01/07/2019 5:59 AM CDT Results for this procedure are i n the results section . POCT-GLUCOSE METER Routine 01/07/2019 4:55 AM CDT Results for this procedure are i n the results section . POCT-GLUCOSE METER Routine 01/07/2019 4:04 AM CDT Results for this procedure are i n the results section . POCT-GLUCOSE METER Routine 01/07/2019 2:56 AM CDT Results for this procedure are i n the results section . POCT-GLUCOSE METER Routine 01/07/2019 1:56 AM CDT Results for this procedure are i n the results section . POCT-GLUCOSE METER Routine 01/07/2019 1:02 AM CDT Results for this procedure are i n the results section . POCT-GLUCOSE METER Routine 01/07/2019 12:13 AM CDT Results for this procedure are i n the results section . APTT Routine 01/06/2019 11:59 PM CDT Resu lts for this procedure are i n the results section . B-TYPE NATRIURETIC FACTOR Routine 01/06/2019 11:59 PM CDT Results for this (BNP) procedure are i n the results section . TROPONIN I Routine 01/06/2019 11:59 PM CDT Resu lts for this procedure are i n the results section . POCT-GLUCOSE METER Routine 01/06/2019 11:09 PM CDT Results for this procedure are i n the results section . XR CHEST 1 VIEW Routine 01/06/2019 10:50 PM CDT R esults for this PORTABLE/BEDSIDE procedure a re in the results section . ECG 12-LEAD STAT 01/06/2019 10:10 PM CDT Resu lts for this procedure are i n the results section . POCT-GLUCOSE METER Routine 01/06/2019 10:05 PM CDT Results for this procedure are i n the results section . CT BRAIN WITHOUT IV CONTRAST STAT 01/06/2019 9:23 PM CDT Results for this procedure are i n the results section . ECG 12-LEAD Routine 01/06/2019 8:24 PM CDT Resu lts for this procedure are i n the results section . CBC W/PLT COUNT & AUTO Routine 01/06/2019 7:15 PM CDT Results for this DIFFERENTIAL procedure are i n the results section . BASIC METABOLIC PANEL (7) Add-On 01/06/2019 7:15 PM CDT Results for this procedure are i n the results section . HEMOGLOBIN A1C Routine 01/06/2019 7:15 PM CDT Re sults for this procedure are i n the results section . TROPONIN I Routine 01/06/2019 7:15 PM CDT Resu lts for this procedure are i n the results section . CBC W/PLT COUNT & AUTO Routine 01/06/2019 7:15 PM CDT Results for this DIFFERENTIAL procedure are i n the results section . APTT Routine 01/06/2019 7:15 PM CDT Resu lts for this procedure are i n the results section . PROTHROMBIN TIME/INR Routine 01/06/2019 7:15 PM CDT Results for this procedure are i n the results section . HEPATIC FUNCTION PANEL Routine 01/06/2019 7:15 PM CDT Results for this procedure are i n the results section . POCT-GLUCOSE METER Routine 01/06/2019 5:46 PM CDT Results for this procedure are i n the results section . after 10/13/2018 Results RHYTHM STRIP - SCAN (01/12/2019 3:42 PM CDT) Narrative Performed At This result has an attachment that is no t available. POC-Glucose meter (01/11/2019 12:15 PM CDT)Only the most recent of31 results within the time period is included. POC-Glucose Meter 119 (H)Comment: TESTED AT 70 - 110 mg/dL [facility] [address] [facility] [address] Specimen Blood Performing Organization Address City/State/Zipcode Phone Number [address] [phone] CENTER CBC with platelet count + automated diff (01/11/2019 5:03 AM CDT)Only the most recent of6 resultswithin the time period is included. WBC 4.1 3.5 - 10.5 K/L [facility] RBC 3.72 (L) 4.63 - 6.08 M/L [facility] Hemoglobin 11.6 (L) 13.7 - 17.5 GM/DL [facility] Hematocrit 33.6 (L) 40.1 - 51.0 % [facility] MCV 90.3 79.0 - 92.2 fL [facility] MCH 31.2 25.7 - 32.2 pg [facility] MCHC 34.5 32.3 - 36.5 GM/DL [facility] RDW 13.7 11.6 - 14.4 % [facility] Platelets 170 150 - 450 K/CU MM [facility] MPV 11.8 9.4 - 12.4 fL [facility] nRBC 0 0 - 0 /100 WBC [facility] % Neutros 53 % [facility] % Lymphs 32 % [facility] % Monos 7 % [facility] % Eos 6 % [facility] % Baso 1 % [facility] # Neutros 2.17 1.78 - 5.38 K/L [facility] # Lymphs 1.31 (L) 1.32 - 3.57 K/L [facility] # Monos 0.29 (L) 0.30 - 0.82 K/L [facility] # Eos 0.26 0.04 - 0.54 K/L [facility] # Baso 0.03 0.01 - 0.08 K/L [facility] Immature Granulocytes-Relative 1 0 - 1 % C [facility] Specimen Blood Performing Organization Address City/State/Zipcode Phone Number [facility] [address] [place] [address] [place] [facility] Metabolic Panel (01/11/2019 5:03 AM CDT)Only the most recent of6 results within the time period is included. Sodium 139 136 - 145 meq/L [facility] Potassium 4.5 3.5 - 5.1 meq/L [facility] Chloride 109 (H) 98 - 107 meq/L [facility] CO2 23 22 - 29 meq/L [facility] BUN 30 (H) 7 - 21 mg/dL [facility] Creatinine 1.87 (H) 0.57 - 1.25 mg/dL [facility] Glucose 219 (H) 70 - 105 mg/dL [facility] Calcium 8.9 8.4 - 10.2 mg/dL [facility] EGFR 38Comment: ESTIMATED GFR IS mL/min/1.73 sq m [facility] NOT ACCURATE CREATININE [facility] CLEARANCE IN PREDICTING GLOMERULAR FILTRATION RATE. ESTIMATED GFR IS NOT APPLICABLE FOR DIALYSIS PATIENTS. Specimen Blood Performing Organization Address City/State/Zipcode Phone Number [facility] [address] [place] [address] [address] brain without IV contrast (01/10/2019 11:31 AM CDT)Only the most recent of2 resultswithin the time period is included. Specimen Narrative Performed At FINAL REPORT [facility] CT, BRAIN, WITHOUT CONTRAST INDICATION: Subdural hemorrhage, follow- up TECHNIQUE: Noncontrast axial imaging was obtained from the vertex to the skull base. Axial images were recons tructed using a bone algorithm. DOSE REDUCTION: Dose modulation, iterati ve reconstruction, and/or weight-based adjustment of the mA/kV was utilized to reduce the radiation dose to as low as reasonably a chievable. COMPARISON: CT 01/06/2019 FINDINGS: Intracranial: Unchanged minimal thickeni ng of the right tentorial leaflet. Streak artifact along the right convexity causes appearance of hyperdense collection; a similar find ing is present to a lesser degree on the contralateral side. No new site of intracranial hemorrhage or abnormal extra-axial colle ction. No evidence of acute territorial infarct. No mass effect. No hydrocephalus. Osseous structures: No fracture. Right p arietal scalp swelling similar to prior exam. Paranasal sinuses and mastoid air cells: Minimal mucosal thickening in the right maxillary sinus. Mastoids a re clear. Orbital contents: Globes are intact. IMPRESSION: 1.Unchanged minimal thickening of the ri ght tentorial leaflet. 2.The apparent thin hyperdense collectio ns along the bilateral convexities are in regions of streak art ifact and likely artifactual. If there is persistent clinical concern for intracranial pathology, MR examination is recommended for furthe r characterization. Signed: Manny Lr MD Report Verified Date/Time:01/10/2019 14:47:25 Procedure Note Interface, External Ris In - 01/10/2019 2:[address] PM [address] FINAL REPORT CT, BRAIN, WITHOUT CONTRAST INDICATION: Subdural hemorrhage, follow- up TECHNIQUE: Noncontrast axial imaging was obtained from the vertex to the skull base. Axial images were recons tructed using a bone algorithm. DOSE REDUCTION: Dose modulation, iterati ve reconstruction, and/or weight-based adjustment of the mA/kV was utilized to reduce the radiation dose to as low as reasonably a chievable. COMPARISON: CT 01/06/2019 FINDINGS: Intracranial: Unchanged minimal thickeni ng of the right tentorial leaflet. Streak artifact along the right convexity causes appearance of hyperdense collection; a similar find ing is present to a lesser degree on the contralateral side. No new site of intracranial hemorrhage or abnormal extra-axial colle ction. No evidence of acute territorial infarct. No mass effect. No hydrocephalus. Osseous structures: No fracture. Right p arietal scalp swelling similar to prior exam. Paranasal sinuses and mastoid air cells: Minimal mucosal thickening in the right maxillary sinus. Mastoids a re clear. Orbital contents: Globes are intact. IMPRESSION: 1.Unchanged minimal thickening of the ri ght tentorial leaflet. 2.The apparent thin hyperdense collectio ns along the bilateral convexities are in regions of streak art ifact and likely artifactual. If there is persistent clinical concern for intracranial pathology, MR examination is recommended for furthe r characterization. Signed: Manny Lr MD Report Verified Date/Time: 01/10/2019 1 4:47:25 Performing Organization Address City/State/Zipcode Phone Number [facility] CT chest without IV contrast (01/10/2019 11:31 AM CDT) Specimen Narrative Performed At FINAL REPORT [facility] TECHNIQUE: CT scan of the chest WITHOUT intravenous contrast. Dose modulation, iterative reconstruction, an d/or weight-based adjustment of the mA/kV was utilized to reduce the radiation dose to as low as reasonably achievable. INDICATION: Chest pain or SOB, pleurisy or effusion suspected. COMPARISON: None. FINDINGS: ABSENCE OF INTRAVENOUS CONTRAST DECREASE S SENSITIVITY FOR DETECTION OF FOCAL LESIONS AND VASCULAR PATHOLOGY. LINES/TUBES: None. LUNGS AND AIRWAYS: Bibasilar subsegmenta l atelectasis. A right middle lobe pulmonary nodule measures 0.3 cm on axial image 29. A calcified granuloma in the right lower lobe measur es 0.2 cm. PLEURA: The pleural spaces are clear. HEART AND MEDIASTINUM: The visualized th yroid gland is normal. No significant mediastinal, hilar, or axill bakari lymphadenopathy. The heart and pericardium are within normal limits. Marked coronary arterial calcifications. There are likel y stents in the left anterior descending coronary artery. SOFT TISSUES AND BONES: Unremarkable. UPPER ABDOMEN: Prior cholecystectomy. 14 .8 cm splenomegaly. The liver is likely nodular. IMPRESSION: 1.No acute intrathoracic abnormality. 2.The mild nodularity of the liver is co ncerning for cirrhosis. Mild splenomegaly. 3.A right middle lobe pulmonary nodule m easures 0.3 cm and is indeterminate. If the patient is at incr eased risk for lung cancer, an optional follow-up chest CT can be ob tained in 12 months. Otherwise, no CT follow-up is necessary. Signed: Amrik Sierra MD Report Verified Date/Time:01/10/2019 18:24:57 Reading Location: [facility] B1 [id number] CT Body R eading Room Procedure Note Interface, External Ris In - 01/10/2019 6:27 PM CDT FINAL REPORT TECHNIQUE: CT scan of the chest WITHOUT intravenous contrast. Dose modulation, iterative reconstruction, an d/or weight-based adjustment of the mA/kV was utilized to reduce the radiation dose to as low as reasonably achievable. INDICATION: Chest pain or SOB, pleurisy or effusion suspected. COMPARISON: None. FINDINGS: ABSENCE OF INTRAVENOUS CONTRAST DECREASE S SENSITIVITY FOR DETECTION OF FOCAL LESIONS AND VASCULAR PATHOLOGY. LINES/TUBES: None. LUNGS AND AIRWAYS: Bibasilar subsegmenta l atelectasis. A right middle lobe pulmonary nodule measures 0.3 cm on axial image 29. A calcified granuloma in the right lower lobe measur es 0.2 cm. PLEURA: The pleural spaces are clear. HEART AND MEDIASTINUM: The visualized th yroid gland is normal. No significant mediastinal, hilar, or axill bakari lymphadenopathy. The heart and pericardium are within normal limits. Marked coronary arterial calcifications. There are likel y stents in the left anterior descending coronary artery. SOFT TISSUES AND BONES: Unremarkable. UPPER ABDOMEN: Prior cholecystectomy. 14 .8 cm splenomegaly. The liver is likely nodular. IMPRESSION: 1.No acute intrathoracic abnormality. 2.The mild nodularity of the liver is co ncerning for cirrhosis. Mild splenomegaly. 3.A right middle lobe pulmonary nodule m easures 0.3 cm and is indeterminate. If the patient is at incr eased risk for lung cancer, an optional follow-up chest CT can be ob tained in 12 months. Otherwise, no CT follow-up is necessary. Signed: Amrik Sierra MD Report Verified Date/Time: 01/10/2019 1 8:24:57 Reading Location: [facility] B1 C013Y CT Body R eading Room Performing Organization Address City/State/Zipcode Phone Number Propable D-dimer (01/10/2019 11:00 AM CDT) D-Dimer, Quant 2.14 (H) <0.50 MG/L FEU [facility] Specimen Blood Narrative Performed At Intended Use: The D-Dimer Assay can be used [facility] to aid in the diagnosis of Deep Vein Thrombosis (DVT) and Pulmonary Embolism Disease (PED). In patients with low pre-test probability, various studies concerning STA Liatest D-dimer test have reported that with a cutoff value of 0.50 MG/L FEU, the Negative Predictive Value (NPV) regarding the exclusion of thrombosis is within 95-100% range. Performing Organization Address City/State/Zipcode Phone Number [address] [address] CENTER XR chest 1 view portable / bedside (01/10/2019 7:16 AM CDT)Only the most recent of2 resultswithin the time period is included. Specimen Narrative Performed At FINAL REPORT [facility] Chest, AP view. History: Chest pain. Comparison: 01/06/2019. Discussion:The cardiomediastinal maria luz houette and pulmonary vasculature are within normal limits. Th e lungs are clear without evidence of consolidation or effusion. There are no acute osseous abnormalities. The soft tissues are unre markable. IMPRESSION: No acute cardiopulmonary abnormality. Signed: Britney Schwab MD Report Verified Date/Time:01/10/2019 08:17:19 Reading Location: [facility] C013 Ortho Con sult Reading Room Procedure Note Interface, External Ris In - 01/10/2019 8:19 AM CDT FINAL REPORT Chest, AP view. History: Chest pain. Comparison: 01/06/2019. Discussion: The cardiomediastinal silho uette and pulmonary vasculature are within normal limits. Th e lungs are clear without evidence of consolidation or effusion. There are no acute osseous abnormalities. The soft tissues are unre markable. IMPRESSION: No acute cardiopulmonary abnormality. Signed: Britney Schwab MD Report Verified Date/Time: 01/10/2019 0 8:17:19 Reading Location: [facility] C013X Ortho Con sult Reading Room Performing Organization Address City/State/Zipcode Phone Number GE Podclass ECG 12 lead (01/10/2019 6:30 AM CDT)Only the most recent of5 resultswithin the time period is included. Specimen Narrative Performed At Ventricular Rate 77 BPM GE MUSE Atrial Rate 77 BPM P-R Interval 138 ms QRS Duration 144 ms Q-T Interval 442 ms QTC Calculation(Bazett) 500 ms P [place] 30 degrees R [place] 41 degrees T [place] 30 degrees Normal sinus rhythm Limb lead misplacement Right bundle branch block Nonspecific T wave abnormality Prolonged QT Abnormal ECG When compared with ECG of 10-JAN-2019 06 :01, Limb leads are now misplaced Confirmed by MD COOK YOCHAI ([id number]) on 01/12/2019 2:04:04 PM Procedure Note Interface, External Ris In - 01/12/2019 2:04 PM CDT Ventricular Rate 77 BPM Atrial Rate 77 BPM P-R Interval 138 ms QRS Duration 144 ms Q-T Interval 442 ms QTC Calculation(Bazett) 500 ms P [place] 30 degrees R [place] 41 degrees T [place] 30 degrees Normal sinus rhythm Limb lead misplacement Right bundle branch block Nonspecific T wave abnormality Prolonged QT Abnormal ECG When compared with ECG of 10-JAN-2019 06 :01, Limb leads are now misplaced Confirmed by MD COOK YOCHAI ([id number]) on 01/12/2019 2:04:04 PM Performing Organization Address City/[facility] Phone Number [phone] Troponin I (01/10/2019 6:11 AM CDT)Only the most recent of7 resultswithin the time period is included. Troponin I 0.02 0.00 - 0.03 ng/mL [facility] Specimen Blood Narrative Performed At Troponin I (TnI) levels must be interpreted [facility] in the context of the presenting symptoms and the clinical findings. Elevated TnI levels indicate myocardial damage, but are not specific for ischemic heart disease. Elevated TnI levels are seen in patients with other cardiac conditions (including myocarditis and congestive heart failure), and slight TnI elevations occur in patients with other conditions, including sepsis, renal failure, acidosis, acute neurological disease, and persistent tachyarrhythmia. Performing Organization Address City/State/Zipcode Phone Number [address] [address] CENTER B-type Natriuretic Factor (BNP) (01/10/2019 6:11 AM CDT)Only the most recent of 2 resultswithin the time period is included. BNP 130 (H) 0 - 100 pg/mL [facility] Specimen Blood Performing Organization Address City/[facility]/Zipcode Phone Number [address] [address] CENTER aPTT (01/09/2019 4:35 AM CDT)Only the most recent of8 resultswithin the time period is included. PTT 35.0 22.5 - 36.0 seconds [facility] Specimen Blood Performing Organization Address [facility] Phone Number [address] [address] [place] ECHOCARDIOGRAM REPORT - SCAN (01/08/2019 9:20 PM CDT) Narrative Performed At This result has an attachment that is no t available. PT/aPTT (01/08/2019 4:03 PM CDT) Protime 13.4 11.9 - 14.2 seconds [facility] INR 1.1 <=5.9 [facility] PTT 32.0 22.5 - 36.0 seconds [facility] Specimen Blood Narrative Performed At Effective 09/23/2018: PT Reference Range [facility] Change New: 11.9-14.2Previous: 11.7-14.7 RECOMMENDED COUMADIN/WARFARIN INR THERAPY RANGES STANDARD DOSE: 2.0-3.0Includes: PROPHYLAXIS for venous thrombosis, systemic embolization; TREATMENT for venous thrombosis and/or pulmonary embolus. HIGH RISK: Target INR is 2.5-3.5 for patients wiht mechanical heart valves. 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 Clinical History Congestive Heart Failure Diabetes Hyperlipidemia Stroke/TIA Cirrhosis Seizures HGB 11 HCT 31.7 % Contrast Medium: Definity. Amount - 2 ml Height: 67 inches Weight: 102.97 kg (227 lbs) BSA: 2.13 m^2 BMI: 35.55 kg/m^2 HR: 74 bpm BP: 156/91 mmHg Summary 1. Normal LV size and function. LVEF is 55-60% 2. Diastology: Grade 1 diastolic dysfun ction 3. Normal RV size and function 4. No significant valvular heart diseas e 5. Unable to estimate PASP 6. No pericardial effusion Previous Study No prior studies available for comparis on. Signature Findings Left Ventricle The left ventricle is chamber size (by PSLAX di mension) is normal (male - LVIDd 4.2-5.8 cm) . No rmal LV wall thickness. All of the LV se gments co ntract normally . Global LV systolic fun ction no rmal . LVEF by Stallings's method of disk as sessment is normal (55-60%) . The LVEF w as me asured using Stallings's bi-plane method o f disk . LV endocardium is adequately visualized wit h IV ul trasound enhancing agent. Grade 1 diasto lic dy sfunction (impaired relaxation and low-n ormal LA pr essure). Left AtriumLA size is mildly enlarged (35-41 ml/m2) . Right VentricleThe right ventricular chamber size and systolic fu nction are within normal limits. Right Atrium RA cavity size is normal . Aortic Valve Normal AoV structure and function. Mitral Valve Mild MV leaflet thickening. Tr nathan mitral regurgitation. Tricuspid ValveTV structure is normal. Un able to estimate peak systolic PA pressu re; in adequate TR velocity signal. Pulmonic Valve Mild pulmonary regurgitation. No rmal PV structure and function. AortaAortic root size (SInus of Valsalva diameter) i s no rmal . PericardiumNo significant pericardial effusion is visualized. IVC/SVC/PA/PV/PleuralThe right upper pulmonary vein (RUPV) is normal . Th e estimated RA pressure by IVC dynamics 0-5mmHg . Chambers/Structures Left Atrium LA Volume: 78.94 ml LA Area: 24.93 cm^2 LA Vol. Index: 37 ml/m^2 Left Ventricle LVIDd: 5.37 cm LV Septum Diastolic: 1.06 cm LV PW Diastolic: 1.11 cm LVEDV Stallings's:148.82 ml LVESV Stallings's:60.78 ml LVEF Stallings's: 59.2 %LVEDV I: 70 ml/m^2 LVESVI: 29 ml/m^2 LVOT Diameter: 2.07 cm Right Ventricle TAPSE: 1.92 cm Aorta Ao Root S of Alena.: 3.48 cm Doppler/Quantitative Measurements Mitral Valve MV Peak E-Wave: 0.74 m/s MV Peak A-Wave: 0.89 m/s E/A Ratio: 0.83 Peak Gradient: 2.21 mmHg Deceleration Time: 193 msec MV Mariano. Peak: Tissue Doppler E' Septal Velocity: 0.05 m/s E/E': 13.79 E' Lateral Velocity: 0.07 m/s Aortic Valve Peak Velocity: 1.2 m/sMean Velocity: 0.8 m/s Peak Gradient: 5.77 mmHgMean Gradient: 3.1 mmHg AV Area (continuity): 3.12 cm^2 AV VTI: 22.78 cm AV DVI: 0.93 LVOT Peak Velocity: 0.97 m/s Peak Gradient: 3.77 mmHg Mean Velocity: 0.68 m/s Mean Gradient: 2.09 mmHg LVOT Diameter: 2.07 cmLVOT VTI: 21.15 cm LVOT Area: 3.37 cm^2LVOT SV:71.14 ml LVOT CO: 5.26 l/min LVOT CI: 2.47 l/min/m^2 Procedure Note Interface, External Ris In - 01/08/2019 9:20 AM CDT Transthoracic Echocardiography Report (TTE) Demographics Patient Name PAOLA KWONG of Study 01/07/2019 MAGED BOND Gen carmine Male Visit Number [id number] Rac e Unknown 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 Clinical History Congestive Heart Failure Diabetes Hyperlipidemia Stroke/TIA Cirrhosis Seizures HGB 11 HCT 31.7 % Contrast Medium: Definity. Amount - 2 ml Height: 67 inches Weight: 102.97 kg (227 lbs) BSA: 2.13 m^2 BMI: 35.55 kg/m^2 HR: 74 bpm BP: 156/91 mmHg Summary 1. Normal LV size and function. LVEF is 55-60% 2. Diastology: Grade 1 diastolic dysfun ction 3. Normal RV size and function 4. No significant valvular heart diseas e 5. Unable to estimate PASP 6. No pericardial effusion Previous Study No prior studies available for comparis on. Signature Findings Left Ventricle The left ventric le is chamber size (by PSLAX dimension) is no rmal (male - LVIDd 4.2-5.8cm) . Normal LV wall t hickness. All of the LV segments contract normall y . Global LV systolic function normal . LVEF by Stallings's method of disk assessment is no rmal (55-60%) . The LVEF was measured using S kailynson's bi-plane method of disk . LV endocardium i s adequately visualized with IV ultrasound enhan cing agent. Grade 1 diastolic dysfunction (imp aired relaxation and low-normal LA pressure). Left Atrium LA size is mildl y enlarged (35-41 ml/m2) . Right Ventricle The right ventri cular chamber size and systolic function are wit hin normal limits. Right Atrium RA cavity size i s normal . Aortic Valve Normal AoV struc ture and function. Mitral Valve Mild MV leaflet thickening. Trace mitral reg urgitation. Tricuspid Valve TV structure is normal. Unable to estima te peak systolic PA pressure; inadequate TR ve locity signal. Pulmonic Valve Mild pulmonary r egurgitation. Normal PV struct ure and function. Aorta Aortic root size (SInus of Valsalva diameter) is normal . Pericardium No significant p ericardial effusion is visualized. IVC/SVC/PA/PV/Pleural The right upper pulmonary vein (RUPV) is normal . The estimated RA pressure by IVC dynamics 0-5mmHg . Chambers/Structures Left Atrium LA Volume: 78.94 ml LA Area: 24.93 cm^2 LA Vol. Index: 37 ml/m^2 Left Ventricle LVIDd: 5.37 cm LV Septum Diastolic: 1.06 cm LV PW Diastolic: 1.11 cm LVEDV Stallings's:148.82 ml LVESV Stallings's:60.78 ml LVEF Stallings's: 59.2 % LVEDVI: 70 ml/m^2 LVESVI: 29 ml/m^2 LVOT Diameter: 2.07 cm Right Ventricle TAPSE: 1.92 cm Aorta Ao Root S of Alena.: 3.48 cm Doppler/Quantitative Measurements Mitral Valve MV Peak E-Wave: 0.74 m/s MV Peak A-Wave: 0.89 m/s E/A Ratio: 0.83 Peak Gradient: 2.21 mmHg Deceleration Time: 193 msec MV Mariano. Peak: Tissue Doppler E' Septal Velocity: 0.05 m/s E/E': 13.79 E' Lateral Velocity: 0.07 m/s Aortic Valve Peak Velocity: 1.2 m/s Mean Velocity: 0.8 m/s Peak Gradient: 5.77 mmHg Mean Gradient: 3.1 mmHg AV Area (continuity): 3.12 cm^2 AV VTI: 22.78 cm AV DVI: 0.93 LVOT Peak Velocity: 0.97 m/s Pea k Gradient: 3.77 mmHg Mean Velocity: 0.68 m/s Sharonda n Gradient: 2.09 mmHg LVOT Diameter: 2.07 cm LVO T VTI: 21.15 cm LVOT Area: 3.37 cm^2 LVO T SV:71.14 ml LVOT CO: 5.26 l/min LVO T CI: 2.47 l/min/m^2 Performing Organization Address City/[facility] Phone Number [facility] ECHO HEARTLAB MKCKESSON CPACS Phosphorus (01/07/2019 6:01 AM CDT) Phosphorus 2.5 2.3 - 4.7 mg/dL [facility] Specimen Blood Narrative Performed At Once on admission and Daily AM afterward s [facility] Once on admission and Daily AM afterward s Once on admission and Daily AM afterwards Performing Organization Address City/State/Zipcode Phone Number [facility] [address] [place] [address] CENTER Magnesium (01/07/2019 6:01 AM CDT) Magnesium 2.2 1.6 - 2.6 mg/dL [facility] Specimen Blood Narrative Performed At Once on admission and Daily AM afterward s [facility] Once on admission and Daily AM afterward s Once on admission and Daily AM afterwards Performing Organization Address [facility] Phone Number [address] [address] [place] Prothrombin time/INR (01/06/2019 7:15 PM CDT) Protime 11.4 (L) 11.9 - 14.2 seconds [facility] INR 0.9 <=5.9 [facility] Specimen Blood Narrative Performed At Effective 09/23/2018: PT Reference Range [facility] Change New: 11.9-14.2Previous: 11.7-14.7 RECOMMENDED COUMADIN/WARFARIN INR THERAPY RANGES STANDARD DOSE: 2.0-3.0Includes: PROPHYLAXIS for venous thrombosis, systemic embolization; TREATMENT for venous thrombosis and/or pulmonary embolus. HIGH RISK: Target INR is 2.5-3.5 for patients wiht mechanical heart valves. Performing Organization Address [facility] Phone Number [address] [address] [place] Hemoglobin A1c (01/06/2019 7:15 PM CDT) Hemoglobin A1C 11.9 (H) 4.3 - 6.1 % [facility] Specimen Blood Performing Organization Address [facility] Phone Number [address] [address] [place] Hepatic function panel (01/06/2019 7:15 PM CDT) Protein, Total 6.3Comment: Specimen 6.0 - 8.3 gm/dL [facility] slightly hemolyzed [facility] Albumin 2.8 (L)Comment: Specimen 3.5 - 5.0 g/dL [facility] slightly hemolyzed [facility] Total Bilirubin 0.4Comment: Specimen 0.2 - 1.2 mg/dL [facility] slightly hemolyzed [facility] Bilirubin, Direct 0.1Comment: Specimen 0.1 - 0.5 mg/dL [facility] slightly hemolyzed [facility] Alkaline Phosphatase 104 40 - 150 U/L [facility] AST 29Comment: Specimen 5 - 34 U/L [facility] slightly hemolyzed [facility] ALT 23Comment: Specimen 6 - 55 U/L [facility] slightly hemolyzed [facility] Specimen Blood Narrative Performed At Specimen moderately lipemic [facility] Performing Organization Address City/State/Zipcode Phone Number [facility] [address] [place] [address] CENTER after 10/13/2018 Advance Directives For more information, please contact:[address] [phone] Code Status Date Activated Date Inactivated Comments Full Code 01/06/2019 5:51 PM 01/11/2019 7:13 PM This code status was determined by: Patient
--- OUTSIDE RECORDS SUMMARY | 2019-10-14 17:29 | XMS REPORT | Continuity of Care Document ---
:1965 Author Organization [facility] t Address [address] [place] [address] Care Team Providers Name Role Phone Jere BOSS Primary Care Physician Doctor Unassigned, Name Attending Clinician Unavailable Erick BOSS Attending Clinician Mario LEACH Attending Clinician Unavailable Ryan Jeffery MD Attending Clinician Chandana BOSS OTad Attending Clinician Lupe RN Attending Clinician Unavailable Maico Tyler MD Attending Clinician Ev Whitehead MD. Attending Clinician Farhad CORONA Attending Clinician Unavailable Hilario LAYTON, L Attending Clinician Ev Mock Attending Clinician Noble Crawford MD Attending Clinician Robert BOSS, Asya Attending Clinician Tanvir Hammond MD, Anthony Attending Clinician [phone] Erica Garcia Attending Clinician Odette Chavis MD Attending Clinician NOBLE CRAWFORD Attending Clinician Unavailable CHANDANA Admitting Clinician Unavailable NOBLE CRAWFORD Admitting Clinician Unavailable Payers Payer Name Policy Type Policy Number Effective Date Expiration Date [facility] xxxxxxxxxxxx 2019 [place] CHOICE 00:00:00 [facility] [employer] [facility] EXCHANGE MARKETPLACExxxxxx /04/2019-Pr esentExchange Problems Condition Condition Condition Status Onset Resolution Last Treating Co mments Source Name Details Category Date Date Treatment Clinician Date Diabetic Diabetic Disease Active [place] [facility] 00 Chronic Chronic Disease Active [place] kidney kidney 2-19 [facility] disease, disease, 00:00: st stage III stage III 00 (moderate) (moderate) Diarrhea, Diarrhea, Disease Active Ferdinand ston unspecifie unspecifie 06-16 [facility] d 00:00: st 00 Edema of Edema of Disease Active [place] left orbit left orbit 06-16 Me thodi 00:00: st 00 Hyperglyce Hyperglyce Disease [facility] crist[facility]bal cristóbal 2-15 Methodi 00:00: st 00 Subdural Subdural Disease [facility] hematoma 01-08 - due to due to 00:00: Medical concussion concussion 00 Ce nter , with , with loss of loss of consciousn consciousn ess, ess, subsequent subsequent encounter encounter Unstable Unstable Disease [facility]ina [facility] - [facility] Medical 00 Center Hyperglyce Hyperglyce Disease Active [facility] cristóbal due to cristóbal due to 01-08 Tabby kes - type 2 type 2 00:00: Medical diabetes diabetes 00 Center mellitus mellitus Hypertensi Hypertensi Disease Active [facility]08 [facility] CKD CKD Disease Active [facility] (chronic (chronic 01-08 Lu - kidney kidney 00:00: Medical disease) disease) 00 Center Acute Acute Disease Active 2017-04 [place] renal renal 1-23 Methodi failure failure 00:00: st 00 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-14 Meth susi diabetes diabetes 00:00: st mellitus mellitus 00 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 0-13 Methodi 00:00: st 00 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 [place] 0-13 Methodi 00:00: st 00 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 0-13 Method i posterior posterior 00:00: st communicat communicat 00 ing artery ing artery Chest pain Chest pain Disease Active [place] 12-01 Methodi 00:00: st 00 Essential Essential Disease Active Ferdinand ston hypertensi hypertensi 12-01 Me thodi on on 00:00: st 00 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 12-01 Method[facility] disease disease 00:00: st involving involving 00 seneca seneca coronary coronary artery of artery of seneca seneca heart with heart with angina angina pectoris pectoris Cirrhosis Cirrhosis Disease Active Ferdinand ston 12-01 Methodi 00:00: st 00 Hypertrigl Hypertrigl Disease Active H [facility] yceridemia yceridemia 12-01 Va thodi 00:00: st 00 Depression Depression Disease Active [place] 12-01 [facility]i 00:00: st 00 Allergies, Adverse Reactions, Alerts Allergy Allergy Status Severity Reaction(s) Onset Inactive Treating Comm ents Source Name Type Date Date Clinician Ketorola Propensi Active Hallucinatio [facility] ty to ns 2-15 Methodi adverse 00:00: st reaction 00 s to drug Codeine Drug Active Hives Also [facility] Allergy 01-06 gives [facility] - 00:00: headaches Medical 00 Center Hydrocod Propensi Active Hives [facility] one-Acet ty to 9-11 [facility] - aminophe adverse 00:00: Medical n reaction 00 Center s Morphine Propensi Active Hives [facility] ty to 9-11 [facility] - adverse 00:00: Medical reaction 00 Center s Morphine Propensi Active Hives [place] ty to 3-16 Method[facility] adverse 00:00: st reaction 00 s to drug Codeine Propensi Active Hives [place] ty to 8-06 Methodi adverse 00:00: st reaction 00 s to drug Hydrocod Propensi Active Hives, [place] one-Acet ty to Itching 2-28 Methodi aminophe adverse 00:00: st n reaction 00 s to drug Family History Family Member Diagnosis Comments Start Date Stop Date Source Natural father No Known Problem [facility] Natural father Diabetes [place] [facility] Natural mother [facility] mother Hypertension [facility] Natural mother Diabetes [place] [facility] Natural mother Hypertension [place] [facility] Social History Social Habit Start Date Stop Date Quantity Comments Source History SDSC [facility] - Alcohol Std Drinks [facility] History SDSC [facility] - Alcohol Binge Medical Kyrie ter History of tobacco Cigarette Smoker [place] use [facility] Sex Assigned At [place] [facility] Cigarettes smoked 2019-07-06 2019-07-06 [place] current (pack per 00:00:00 00:00:[address] day) - Reported Alcohol intake 2019-07-06 2019-07-06 Current [place] 00:00:00 00:00:00 non-drinker of [facility] alcohol (finding) History SDOH 2019-01-06 2019-01-[address] [facility] - Alcohol Frequency 00:00:00 00:00:00 [facility] Tobacco Comment 2019-01-06 2019-01-06 smokes [address] [facility] - 00:00:00 00:00:00 day, started Medical [facility] er again 3 years ago Smoking Status Start Date Stop Date Source Current every day smoker 2019-07-06 00:00:00 Ferdinand edgar [facility]woodist Medications Ordered Filled Start Stop Current Ordering Indication Dosage Frequency Signature Comments Components Source Medication Medication Date Date Medication? Clinician (SIG) Name Name insulin 2020- No 6U QD Inject 6 [place] lispro 3-21 04-20 Units [facility] (HumaLOG) 00:00: 23:[address] 100 unit/mL 00 :00 skin daily injection with breakfast for 30 days. pantoprazol 2020- No 40mg QD Take 1 Ferdinand stefanin e 3-21 04-20 tablet (40 [facility]i (PROTONIX) 00:00: 23:59 mg total) s t 40 MG EC 00 :00 by mouth tablet daily for 30 days. gabapentin 2019- 2020- No 1800mg QD Take 1,800 [place] (NEURONTIN) 3-20 03-20 mg by Method i 300 mg 17:37: 00:[address] capsule 04 :00 every morning. citalopram 2019- 2020- No 20mg QD Take 20 mg [place] (CeleXA) 20 3-20 03-20 by mouth Met hodi MG tablet 17:37: 00:[address] 04 :00 lisinopril 2019-0 2020- No 20mg QD Take 20 mg [place] (PRINIVIL,Z -20 -20 by mouth Met hodi ESTRIL) 20 17:37: 00:[address] mg tablet 04 :00 clopidogrel 2019-0 2020- No 75mg QD Take 75 mg [place] (PLAVIX) 75 -20 -20 by mouth Met hodi mg tablet 17:37: 00:[address] 04 :00 gabapentin 2019- 2020- No 1200mg QD Take 1,200 [place] (NEURONTIN) 3-20 03-20 mg by Method i 300 mg 17:37: 00:[address] capsule 04 :00 every evening. ibuprofen 2019- 2020- No 400mg Q6H Take 400 [place] (ADVIL,MOTR 3-20 -20 mg by Method i IN) 200 MG 17:37: 00:[address] tablet 04 :00 every 6 (six) hours as needed for mild pain. aspirin 325 2019- 2020- No 325mg Take 325 [place] MG tablet - 03-20 mg by Methodi 17:37: 00:[address] 04 :00 daily. atenolol 2019-0 2020- No 50mg QD Take 50 mg [place] (TENORMIN) 07-15-20 by mouth Meth susi 50 MG 12:21: 00:[address] tablet 02 :00 atenoloL 2019-0 2020- No 50mg QD Take 1 [place] (TENORMIN) -15 08-19 tablet (50 Me thodi 50 MG 00:00: 23:59 mg total) st tablet 00 :00 by mouth daily for 30 days. citalopram 2019-0 2020- No 20mg QD Take 1 [place] (CeleXA) 20 -15 08-19 tablet (20 M ethodi MG tablet 00:00: 23:59 mg total) st 00 :00 by mouth daily for 30 days. gabapentin 2019-0 2020- No 300mg QD Take 0.5 [place] (NEURONTIN) -20 -19 tablets Meth susi 600 mg 00:00: 23:59 ([address] tablet 00 :00 total) by mouth nightly for 30 days. simvastatin 2019-0 2020- No 40mg QD Take 0.5 [place] (ZOCOR) 80 07-15- tablets Metho di MG tablet 00:00: 23:59 ([address] 00 :00 total) by mouth nightly for 30 days. brimonidine 2019-0 2020- No 1[drp] Q.[id number] Administer [place] (ALPHAGAN) 07-15 [id number] 1 drop Methodi 0.15 % 00:00: 23:[address] ophthalmic 00 :00 left eye solution every 8 (eight) hours for 30 days. calcium 2019-2019- No 667mg Q.[id number] Take 1 [place] acetate,tate -08-14 [id number] capsule Methodi sphat bind, 00:00: 23:59 3D ([address] (PHOSLO) 00 :00 total) by 667 mg mouth 3 capsule (three) times a day with meals for 30 days. dorzolamide 2019-0 2020- No 1[drp] Q.5D Administer [place] -timolol 07-15 1 drop [facility] (COSOPT) 00:00: 23:[address] 2-0.5 % 00 :00 left eye 2 dropperette (two) times a day for 30 days. insulin 2020-0 2020- No 5U QD Inject 5 [place] lispro -20 -19 Units [facility] (HumaLOG) 00:00: 23:[address] 100 unit/mL 00 :00 skin injection nightly for 30 days. insulin 2020-0 2020- No 6U QD Inject 6 [place] lispro 3-20 04-19 Units [facility] (HumaLOG) 00:00: 23:[address] 100 unit/mL 00 :00 skin daily injection before dinner for 30 days. insulin 2020-0 2020- No 6U QD Inject 6 [place] lispro 3-20 04-19 Units [facility] (HumaLOG) 00:00: 23:[address] 100 unit/mL 00 :00 skin daily injection before lunch for 30 days. insulin NPH 2019-0 2020- No 20U QD Inject 20 [place] (HumuLIN-N) -20 -19 Units Method i 100 unit/mL 00:00: 23:[address] injection 00 :00 skin daily for 30 days. isosorbide 2019-0 2020- No 60mg QD Take 1 [place] mononitrate 07-15 tablet (60 M ethodi (IMDUR) 60 00:00: 23:59 mg total) s t MG 24 hr 00 :00 by mouth tablet daily for 30 days. latanoprost 2019- 2020- No 1[drp] QD Administer [place] (XALATAN) 07-15 1 drop Methodi 0.005 % 00:00: 23:[address] ophthalmic 00 :00 left eye solution nightly for 30 days. levETIRAcet 2019-0 2020- No 250mg Q.5D Take 1 [place] am (KEPPRA) 07-15 tablet Metho di 250 MG 00:00: 23:59 ([address] tablet 00 :00 total) by mouth 2 (two) times a day for 30 days. methocarbam 2019- 2020- No 500mg Q.[id number] Take 1 [place] oL 07-15 [id number] tablet Method i (ROBAXIN) 00:00: 23:59 3D ([address] 500 MG 00 :00 total) by tablet mouth 3 (three) times a day as needed for muscle spasms for up to 30 days. nystatin 2019-0 2020- No Q.5D Apply [place] (MYCOSTATIN 07-15 topically Me thodi ) 100,000 00:00: 23:59 2 (two) st unit/gram 00 :00 times a powder day for 30 days. polyethylen 2019-0 2020- No 17g QD Take 17 g [place] e glycol 07-15 by mouth Method i (MIRALAX) 00:00: 23:[address] 17 gram 00 :00 30 days. packet riFAXimin 2019- 2020- No 550mg Q.5D Take 1 [place] (XIFAXAN) 07-15 tablet Methodi 550 mg 00:00: 23:59 ([address] tablet 00 :00 total) by mouth 2 (two) times a day for 30 days. sevelamer 2019-0 2020- No 800mg Q.[id number] Take 1 [place] (RENVELA) 07-15 [id number] tablet M ethodi 800 mg 00:00: 23:59 3D ([address] tablet 00 :00 total) by mouth 3 (three) times a day with meals for 30 days. mineral 2019- 2020- No QD Administer Ferdinand ston oil/petrola 07-15-19 to both Meth susi john,white 00:00: 23:[address] (artificial 00 :00 nightly as tears) needed ointment (itching/d ry eyes) for up to 30 days. insulin 2019- 2020- No 3U QD Inject 3 [place] lispro 07-15- Units [facility] (HumaLOG) 00:00: 23:[address] 100 unit/mL 00 :00 skin injection nightly for 30 days. metoprolol 2019- Yes 50mg QD Take 1 [facility] (TOPROL-XL) 9-17 tablet (50 Tabby kes - 50 MG 24 hr 00:00: mg total) M edical tablet 00 by mouth Center daily. furosemide 2019- No 40mg Q.5D Take [address] (LASIX) 40 9-16 09-16 by mouth 2 Tabby kes - MG tablet 14:22: 00:00 (two) Medica l 46 :00 times Center daily. furosemide 2018- Yes 20mg QD Take 1 [facility] (LASIX) 20 9-16 tablet (20 Doris es - MG tablet 00:00: mg total) Med ical 00 by mouth Center daily. ranolazine 2018-0 Yes 500mg Q.5D Take [address] (RANEXA) 9-16 tablet [facility] - 500 MG 12 00:00: (500 mg Medic al hr tablet 00 total) by Cente r mouth 2 (two) times daily. travoprost 2019-0 Yes 1[drp] QD Place [address] (TRAVATAN 9-12 drop into [facility] - Z) 0.004 % 12:57: both eyes Me dical Drop 59 nightly. Center ophthalmic drops clopidogrel 2019-0 Yes 75mg QD Take [address] (PLAVIX) 75 9-11 by mouth Luke s - mg tablet 18:07: daily. Medica l 00 Center simvastatin 2019-0 Yes 80mg QD Take [address] (ZOCOR) 80 9-11 by mouth [facility] - MG tablet 18:07: daily. Medica l 00 [place] spironolact 2019-0 Yes 25mg QD Take [address] one 9-11 by mouth [facility] - (ALDACTONE) 18:07: daily. Medi warren 25 MG 00 Center tablet levETIRAcet Yes 500mg QD Take [address] am (KEPPRA) 9-11 mg by [facility] - 500 MG 18:07: mouth Medical tablet 00 daily. Center insulin Yes 80U Inject 80 [facility] 70/30, 9-11 Units [facility] - insulin 18:07: subcutaneo Medi warren NPH-insulin 00 usly 2 Center regular, (two) (HUMULIN times 70/30) 100 daily unit/mL before (70-30) meals. injection aspirin 81 Yes 81mg QD Take [address] MG chewable 9-11 by mouth Luke s - tablet 18:06: daily. Medical 59 Center citalopram Yes 20mg QD Take [address] (CELEXA) 20 9-11 by mouth Luke s - MG tablet 18:06: daily. Medica l 59 [place] gabapentin Yes 300mg QD Take [address] (NEURONTIN) 9-11 mg by [facility] - 300 MG 18:06: mouth Medical capsule 59 daily. [place] ergocalcife 2017-04- No [id number] Q7D Take 1 [place] rol 06-05 12-08 capsule Methodi (VITAMIN 00:00: 23:59 (50,000 st D2) 50,000 00 :00 Units unit total) by capsule mouth once a week. insulin 2017-04 Yes Inject [place] syringe-nee 0-22 twice a Metho di dle U-100 00:00: day st (BD INSULIN 00 SYRINGE ULTRA-FINE) 1 mL 31 gauge x 5/16 syringe insulin 2017-04- No Inject 80 [place] 70/30 NPH 0-22 03-20 units Methodi and regular 00:00: 00:[address] human 00 :00 day with (NovoLIN food 70/30 U-100 Insulin) 100 unit/mL (70-30) injection atenolol 2016-04- No 50mg QD Take 50 mg [place] (TENORMIN) 06-04 03-20 by mouth Meth susi 50 MG 00:00: 00:[address] tablet 00 :00 citalopram 2019- No 20mg QD Take 20 mg [place] (CeleXA) 20 8- 03-20 by mouth Met hodi MG tablet 00:00: 00:[address] 00 :00 traMADol 2017- Yes 50mg Q6H Take 50 mg Ferdinand ston (ULTRAM) 50 4-28 by mouth Meth susi mg tablet 00:00: every 6 st 00 (six) hours as needed. simvastatin 2015-04- No 40mg QD Take 40 mg [place] (ZOCOR) 80 0-24 -20 by mouth Meth susi MG tablet 00:00: 00:[address] 00 :00 Vital Signs Vital Name Observation Time Observation Value Comments Source Systolic blood 2019-07-16 12:27:46 160 mm[Hg] [place] [facility] pressure Diastolic blood 2019-07-16 12:27:46 80 mm[Hg] [place] [facility] pressure Heart rate 2019-07-16 12:27:46 64 /min [place] [facility] Body temperature 2019-07-16 12:27:46 36.61 Yesi [place] [facility] Respiratory rate 2019-07-16 12:27:46 18 /min [place] [facility] Oxygen saturation in 2019-07-16 12:27:46 100 /[facility] by Pulse oximetry Body height 2019-07-06 13:11:00 170.2 cm [place] [facility] Body weight 2019-07-06 13:11:00 96.163 kg [place] [facility] BMI 2019-07-06 13:11:00 33.20 kg/m2 [place] [facility] Systolic blood 2019-01-11 12:30:00 136 mm[Hg] [facility] Diastolic blood 2019-01-11 12:30:00 71 mm[Hg] [facility] Heart rate 2019-01-11 12:30:00 80 /min [facility] Body temperature 2019-01-11 12:30:00 36 Yesi [facility] Respiratory rate 2019-01-11 12:30:00 18 /min [facility] Oxygen saturation in 2019-01-11 12:30:00 95 /min [facility] Arterial blood by Medical Ce nter Pulse oximetry Body height 2019-01-06 17:30:00 170.2 cm [facility] Body weight Measured 2019-01-06 17:30:00 102.967 kg [facility] BMI 2019-01-06 17:30:00 35.55 kg/m2 [facility] Procedures Procedure Date / Time Performing Clinician Source Performed POC GLUCOSE 2019-07-16 12:29:00 Milton Ellington POC GLUCOSE 2019-07-16 08:40:00 Milton Ellington BASIC METABOLIC PANEL 2019-07-16 04:00:00 Yunier Stephens Wiley PHOSPHORUS LEVEL 2019-07-16 04:00:00 Yunier Stephens Wiley ESTIMATED GFR 2019-07-16 04:00:00 Yunier Stephens ethodist Wiley HEMODIALYSIS 2019-07-16 00:05:39 Yunier Stephens ethodist Wiley POC GLUCOSE 2019-07-15 21:51:00 Milton Ellington POC GLUCOSE 2019-07-15 16:56:00 Milton Ellington POC GLUCOSE 2019-07-15 11:31:00 Milton Ellington POC GLUCOSE 2019-07-15 07:55:00 Milton Ellington HC COMPLETE BLD COUNT 2019-07-15 05:30:00 Andrews Wright W/AUTO DIFF BASIC METABOLIC PANEL 2019-07-15 05:30:00 Andrews Wright ESTIMATED GFR 2019-07-15 05:30:00 Andrews Wright [facility]odist POC GLUCOSE 2019-07-14 21:08:00 Milton Ellington POC GLUCOSE 2019-07-14 16:55:00 Milton Ellington POC GLUCOSE 2019-07-14 13:49:00 Milton Ellington POC GLUCOSE 2019-07-14 11:48:00 Milton Ellington HEMODIALYSIS 2019-07-14 09:13:12 Yunier Stephens ethodist Wiley POC GLUCOSE 2019-07-14 08:13:00 Milton Ellington BASIC METABOLIC PANEL 2019-07-14 05:10:00 Sachi Stephensashlyn hernández [facility] Wiley MAGNESIUM LEVEL 2019-07-14 05:10:00 Yunier Stephens ethodist Wiley PHOSPHORUS LEVEL 2019-07-14 05:10:00 Angelo RosmeryNayanashlyn [place] [facility] Wiley HC COMPLETE BLD COUNT 2019-07-14 05:10:00 Yunier Stephens Ferdinand hernández [facility] W/AUTO DIFF Wiley ESTIMATED GFR 2019-07-14 05:10:00 Tani StephensshielaNayanjalen [place] ethodist Wiley POC GLUCOSE 2019-07-14 02:44:00 Milton Ellington POC GLUCOSE 2019-07-13 21:27:00 Milton Ellington POC GLUCOSE 2019-07-13 16:22:00 Milton Ellington POC GLUCOSE 2019-07-13 13:08:00 Milton Ellington POC GLUCOSE 2019-07-13 07:55:00 Milton Ellington BASIC METABOLIC PANEL 2019-07-13 03:25:00 Sachi Stephensbbar Ferdinand hernández [facility] Wiley MAGNESIUM LEVEL 2019-07-13 03:25:00 Angelo Yunier [place] ethodist Wiley PHOSPHORUS LEVEL 2019-07-13 03:25:00 StephensYunier Wiley ESTIMATED GFR 2019-07-13 03:25:00 Angelo Yunier [facility] ethodist Wiley POC GLUCOSE 2019-07-12 21:00:00 Milton Ellington POC GLUCOSE 2019-07-12 17:06:00 Milton Ellington POC GLUCOSE 2019-07-12 16:06:00 Milton Ellington POC GLUCOSE 2019-07-12 14:25:00 Milton Ellington POC GLUCOSE 2019-07-12 12:07:00 Milton Ellington HEMODIALYSIS 2019-07-12 08:45:38 Stephens, Yunier [place] ethodist Wiley POC GLUCOSE 2019-07-12 08:44:00 Milton Ellington BASIC METABOLIC PANEL 2019-07-12 04:00:00 Yunier Stephens [facility] Wiley MAGNESIUM LEVEL 2019-07-12 04:00:00 StephensYunier Mercy ethodist Wiley PHOSPHORUS LEVEL 2019-07-12 04:00:00 Yunier Stephens Wiley ESTIMATED GFR 2019-07-12 04:00:00 Yunier Stephens [facility] ethodist Wiley POC GLUCOSE 2019-07-11 21:23:00 Milton Ellington POC GLUCOSE 2019-07-11 16:56:00 Milton Ellington POC GLUCOSE 2019-07-11 16:31:00 Milton Ellington POC GLUCOSE 2019-07-11 11:23:[address] CHEST WO CONTRAST 2019-07-11 09:40:15 Raj Moss Yoandy POC GLUCOSE 2019-07-11 08:29:00 Milton [place]ington HC COMPLETE BLD COUNT 2019-07-11 05:45:00 Yunier Stephens W/AUTO DIFF Wiley BASIC METABOLIC PANEL 2019-07-11 04:00:00 Yunier Stephens [facility] Wiley MAGNESIUM LEVEL 2019-07-11 04:00:00 Yunier Stephens ethodist Wiley PHOSPHORUS LEVEL 2019-07-11 04:00:00 Yunier Stephens Wiley ESTIMATED GFR 2019-07-11 04:00:00 Yunier Stephens [facility] ethodist Wiley POC GLUCOSE 2019-07-11 00:11:00 Milton Ellington POC GLUCOSE 2019-07-10 22:12:00 Milton Ellington POC GLUCOSE 2019-07-10 17:24:00 Milton Ellington BASIC METABOLIC PANEL 2019-07-10 13:40:00 Yunier Stephens [facility] Wiley MAGNESIUM LEVEL 2019-07-10 13:40:00 Yunier Stephens ethodist Wiley PHOSPHORUS LEVEL 2019-07-10 13:40:00 Yunier Stephens Wiley HC COMPLETE BLD COUNT 2019-07-10 13:40:00 Yunier Stephens W/AUTO DIFF Wiley FERRITIN LEVEL 2019-07-10 13:40:00 Stephens, Yunier Olea [facility] Wiley TOTAL IRON BINDING CAPACITY 2019-07-10 13:40:00 Tim Stephens Wiley ESTIMATED GFR 2019-07-10 13:40:00 StephensYunier [facility] ethodist Wiley POC GLUCOSE 2019-07-10 12:34:00 Milton Ellington HEMODIALYSIS 2019-07-10 11:22:47 Stephens, Yunier Olea [facility] Wiley POC GLUCOSE 2019-07-10 08:16:00 Milton Ellington POC GLUCOSE 2019-07-09 21:45:00 Milton Ellington POC GLUCOSE 2019-07-09 16:49:00 Milton Ellington FL MODIFIED BARIUM SWALLOW 2019-07-09 13:51:35 Raj Moss Yoandy POC GLUCOSE 2019-07-09 12:22:00 Milton Ellington POC GLUCOSE 2019-07-09 08:03:00 Milton Ellington BASIC METABOLIC PANEL 2019-07-09 04:00:00 Yunier Stephens Wiley MAGNESIUM LEVEL 2019-07-09 04:00:00 Yunier Stephens ethodist Wiley PHOSPHORUS LEVEL 2019-07-09 04:00:00 Yunier Stephens Wiley ESTIMATED GFR 2019-07-09 04:00:00 Yunier Stephens ethodist Wiley POC GLUCOSE 2019-07-08 21:16:00 Milton Ellington POC GLUCOSE 2019-07-08 16:19:00 Milton Ellington POC GLUCOSE 2019-07-08 13:42:00 Milton Ellington POC GLUCOSE 2019-07-08 07:57:00 Milton Ellington HEPATIC FUNCTION PANEL 2019-07-08 04:00:00 Yris Lagos [facility] BASIC METABOLIC PANEL 2019-07-08 04:00:00 Yunier Stephens [facility] Wiley MAGNESIUM LEVEL 2019-07-08 04:00:00 Yunier Stephens ethodist Wiley PHOSPHORUS LEVEL 2019-07-08 04:00:00 Yunier Stephens [facility] Wiley ESTIMATED GFR 2019-07-08 04:00:00 Yris Lagos Me thodist POC GLUCOSE 2019-07-07 21:30:00 Milton Ellnigton HYPERSENSITIVITY 2019-07-07 17:30:00 [facility] Met hodist PNEUMONITIS II Yoandy POC GLUCOSE 2019-07-07 17:19:00 Milton Ellington IMMUNOGLOBULIN G 2019-07-07 16:11:00 [facility] Met hodist Yoandy ANTI-NEUTROPHILIC 2019-07-07 14:30:00 Yunier Stephensist CYTOPLASMIC ABS PANEL Wiley SS-B ANTIBODY 2019-07-07 14:30:00 [facility] Meth odist Yoandy CENTROMERE ANTIBODY 2019-07-07 14:30:00 [facility] Yoandy DNA AB SCREEN 2019-07-07 14:30:00 Yunier Stephens ethodist Wiley POC GLUCOSE 2019-07-07 12:08:00 Milton Ellington [facility] POC GLUCOSE 2019-07-07 07:41:00 Milton Ellington [facility] HEPATIC FUNCTION PANEL 2019-07-07 04:00:00 Yris Lagos [facility] BASIC METABOLIC PANEL 2019-07-07 04:00:00 Yunier Stephens [facility] Wiley MAGNESIUM LEVEL 2019-07-07 04:00:00 Yunier Stephens ethodist Wiley PHOSPHORUS LEVEL 2019-07-07 04:00:00 Yunier Stephens [facility] Wiley ESTIMATED GFR 2019-07-07 04:00:00 Yris Lagos Me thodist POC GLUCOSE 2019-07-06 21:21:[address] CARDIAC OVERREAD 2019-07-06 18:20:37 Usha Oquendo POC GLUCOSE 2019-07-06 16:38:00 Milton Ellington CV CTA CORONARY ARTERIES W 2019-07-06 13:32:41 Usha Oquendo CONTRAST POC GLUCOSE 2019-07-06 12:03:00 Milton Ellington POC GLUCOSE 2019-07-06 08:25:00 Milton Ellington HEPATIC FUNCTION PANEL 2019-07-06 05:20:00 Yris Lagos PROTHROMBIN TIME WITH INR 2019-07-06 05:20:00 Yris Lagos HC COMPLETE BLD COUNT 2019-07-06 05:20:00 Yris Lagos W/AUTO DIFF C4 COMPLEMENT COMPONENT 2019-07-06 05:20:00 Yunier Stephens Wiley HIV AG/AB COMBINATION 2019-07-06 05:20:00 Yunier Stephens Wiley RHEUMATOID FACTOR 2019-07-06 05:20:00 Yunier Stephens Wiley BASIC METABOLIC PANEL 2019-07-06 05:20:00 Yunier Stephens Wiley MAGNESIUM LEVEL 2019-07-06 05:20:00 Yunier Stephens ethodist Wiley PHOSPHORUS LEVEL 2019-07-06 05:20:00 Yunier Stephens Wiley ESTIMATED GFR 2019-07-06 05:20:00 Yris Lagos Va [facility]odist POC GLUCOSE 2019-07-06 04:50:00 Milton Ellington POC GLUCOSE 2019-07-05 21:41:00 Milton Ellington POC GLUCOSE 2019-07-05 18:11:00 Milton Ellington POC GLUCOSE 2019-07-05 16:19:00 Milton Ellington POC GLUCOSE 2019-07-05 12:39:00 Milton Ellington TTE COMPLETE, WO CONTRAST, 2019-07-05 09:25:06 Milton Ellington W DOPPLER ([id number]) POC GLUCOSE 2019-07-05 08:17:00 Milton Ellington BASIC METABOLIC PANEL 2019-07-05 05:14:00 Yunier Stephens [facility] [employer] MAGNESIUM LEVEL 2019-07-05 05:14:00 Yunier Stephens ethodist Wiley PHOSPHORUS LEVEL 2019-07-05 05:14:00 Yunier Stephens Wiley VANCOMYCIN LEVEL, RANDOM 2019-07-05 05:14:00 Milton Ellington ESTIMATED GFR 2019-07-05 05:14:00 Milton Ellington HEPATIC FUNCTION PANEL 2019-07-05 05:14:00 Milton Ellington POC GLUCOSE 2019-07-04 21:44:00 Milton Ellington POC GLUCOSE 2019-07-04 17:22:00 Milton Ellington POC GLUCOSE 2019-07-04 15:52:00 Milton Ellington POC GLUCOSE 2019-07-04 11:56:00 Milton Ellington POC GLUCOSE 2019-07-04 07:49:00 Milton Ellington BASIC METABOLIC PANEL 2019-07-04 05:16:00 Yunier Stephens [facility] [employer] MAGNESIUM LEVEL 2019-07-04 05:16:00 Yunier Stephens ethodist Wiley PHOSPHORUS LEVEL 2019-07-04 05:16:00 Yunier Stephens Wiley ESTIMATED GFR 2019-07-04 05:16:00 Yunier Stephens ethodist Wiley POC GLUCOSE 2019-07-03 21:52:00 Milton Ellington POC GLUCOSE 2019-07-03 16:16:00 Milton Ellington POC GLUCOSE 2019-07-03 12:31:00 Milton Ellington POC GLUCOSE 2019-07-03 11:50:00 Milton Ellington POC GLUCOSE 2019-07-03 07:48:00 Milton Ellington BASIC METABOLIC PANEL 2019-07-03 04:00:00 Yunier Stephens [facility] [employer] MAGNESIUM LEVEL 2019-07-03 04:00:00 StephensYunier ethodist Wiley PHOSPHORUS LEVEL 2019-07-03 04:00:00 Yunier Stephens Wiley VANCOMYCIN LEVEL, RANDOM 2019-07-03 04:00:00 Milton Ellington ESTIMATED GFR 2019-07-03 04:00:00 Yunier Stephens ethodist Wiley POC GLUCOSE 2019-07-02 21:29:00 Milton Ellington POC GLUCOSE 2019-07-02 18:48:00 Milton Ellington BASIC METABOLIC PANEL 2019-07-02 16:05:00 Yunier Stephens Wiley ESTIMATED GFR 2019-07-02 16:05:00 Yunier Stephens ethodist Wiley POC GLUCOSE 2019-07-02 16:03:00 Milton Ellington VENIPUNC NEED PHYS SKILL,DX 2019-07-02 14:59:18 Kaykay Rain OR RX POC GLUCOSE 2019-07-02 11:52:00 Milton Ellington POC GLUCOSE 2019-07-02 08:44:00 Milton Ellington VANCOMYCIN LEVEL, RANDOM 2019-07-02 04:00:00 Milton Ellington BASIC METABOLIC PANEL 2019-07-02 04:00:00 Yunier Stephens [facility] [employer] MAGNESIUM LEVEL 2019-07-02 04:00:00 Yunier Stephens ethodist Wiley PHOSPHORUS LEVEL 2019-07-02 04:00:00 Yunier Stephens Wiley ESTIMATED GFR 2019-07-02 04:00:00 Milton Ellington POC GLUCOSE 2019-07-01 21:39:00 Milton Ellington POC GLUCOSE 2019-07-01 17:04:00 Milton Ellington VANCOMYCIN LEVEL, TROUGH 2019-07-01 14:30:00 Milton Ellington POC GLUCOSE 2019-07-01 12:20:00 Milton Ellington POC GLUCOSE 2019-07-01 08:33:00 Milton Ellington POC GLUCOSE 2019-07-01 04:13:00 Milton Ellington BASIC METABOLIC PANEL 2019-07-01 04:00:00 Yunier Stephens Wiley MAGNESIUM LEVEL 2019-07-01 04:00:00 Yunier Stephens ethodist [employer] PHOSPHORUS LEVEL 2019-07-01 04:00:00 Yunier Stephens Wiley HEPATIC FUNCTION PANEL 2019-07-01 04:00:00 Yris Lagos ESTIMATED GFR 2019-07-01 04:00:00 Yunier Stephens ethodist Wiley POC GLUCOSE 2019-06-30 23:36:00 Milton Ellingtonist POC GLUCOSE 2019-06-30 21:09:00 Milton Ellington POC GLUCOSE 2019-06-30 17:15:00 Milton Ellington POC GLUCOSE 2019-06-30 14:40:00 Milton Ellington POC GLUCOSE 2019-06-30 11:58:00 Milton Ellington SURGICAL PATHOLOGY REQUEST 2019-06-30 11:36:00 Milton Ellington POC GLUCOSE 2019-06-30 10:00:00 Milton Ellington IR TRANSJUGULAR LIVER 2019-06-30 09:39:34 Yris Lagos BIOPSY BASIC METABOLIC PANEL 2019-06-30 04:03:00 Yunier Stephens Wiley MAGNESIUM LEVEL 2019-06-30 04:03:00 Yunier Stephens ethodist Wiley PHOSPHORUS LEVEL 2019-06-30 04:03:00 Yunier Stephens Wiley HEPATIC FUNCTION PANEL 2019-06-30 04:03:00 Yris Lagos VANCOMYCIN LEVEL, RANDOM 2019-06-30 04:03:00 Milton Ellington ESTIMATED GFR 2019-06-30 04:03:00 Milton Ellington POC GLUCOSE 2019-06-29 21:21:00 Milton Ellington POC GLUCOSE 2019-06-29 16:06:00 Milton Ellington POC GLUCOSE 2019-06-29 12:30:00 Milton Ellington POC GLUCOSE 2019-06-29 08:25:00 Milton Ellington BASIC METABOLIC PANEL 2019-06-29 04:54:00 Yunier Stephens Wiley MAGNESIUM LEVEL 2019-06-29 04:54:00 Yunier Stephens ethodist Wiley PHOSPHORUS LEVEL 2019-06-29 04:54:00 Yunier Stephens Wiley HC COMPLETE BLD COUNT 2019-06-29 04:54:00 Yuiner Stephens W/AUTO DIFF Wiley VANCOMYCIN LEVEL, RANDOM 2019-06-29 04:54:00 Milton Ellington HEPATIC FUNCTION PANEL 2019-06-29 04:54:00 Yris Lagos ESTIMATED GFR 2019-06-29 04:54:00 Yris Lagos [facility] POC GLUCOSE 2019-06-28 20:33:00 Milton Ellington POC GLUCOSE 2019-06-28 16:06:00 Milton Ellington POC GLUCOSE 2019-06-28 12:29:00 Milton Ellington HEPATIC FUNCTION PANEL 2019-06-28 12:23:00 Yris Lagos ECG 12-LEAD 2019-06-28 09:41:10 Milton Ellington POC GLUCOSE 2019-06-28 09:14:00 Milton Ellington TROPONIN 2019-06-28 09:13:00 Milton Ellington HEPATIC FUNCTION PANEL 2019-06-28 09:13:00 Milton Ellington BASIC METABOLIC PANEL 2019-06-28 05:22:00 Yunier Stephensn [facility] [employer] MAGNESIUM LEVEL 2019-06-28 05:22:00 StephensYunier ethodist Wiley PHOSPHORUS LEVEL 2019-06-28 05:22:00 StephensYunier [facility] [employer] VANCOMYCIN LEVEL, RANDOM 2019-06-28 05:22:00 Milton Ellington ESTIMATED GFR 2019-06-28 05:22:00 Milton Ellington POC GLUCOSE 2019-06-27 21:03:00 Milton Ellington POC GLUCOSE 2019-06-27 17:04:00 Milton Ellington POC GLUCOSE 2019-06-27 14:07:00 Milton Ellington POC GLUCOSE 2019-06-27 11:57:00 Milton Ellington POC GLUCOSE 2019-06-27 08:26:00 Milton Ellington ECG 12-LEAD 2019-06-27 08:13:50 Usha Oquendo odist BASIC METABOLIC PANEL 2019-06-27 05:14:00 Yunier Stephens [facility] [employer] MAGNESIUM LEVEL 2019-06-27 05:14:00 Yunier Stephens ethodist Wiley PHOSPHORUS LEVEL 2019-06-27 05:14:00 Yunier Stephens [facility] [employer] VANCOMYCIN LEVEL, RANDOM 2019-06-27 05:14:00 Milton Ellington ESTIMATED GFR 2019-06-27 05:14:00 Milton Ellington POC GLUCOSE 2019-06-26 21:21:00 Milton Ellingtonist POC GLUCOSE 2019-06-26 19:41:00 Milton Ellington [facility] POC GLUCOSE 2019-06-26 19:12:00 Milton Ellington ULTRAFILTRATION 2019-06-26 13:39:23 Andrews Wright [facility] POC GLUCOSE 2019-06-26 12:05:00 Milton Ellington POC GLUCOSE 2019-06-26 08:54:00 Milton Ellington BASIC METABOLIC PANEL 2019-06-26 06:25:00 Yunier Stephens [facility] [employer] MAGNESIUM LEVEL 2019-06-26 06:25:00 Yunier Stephens ethodist [employer] PHOSPHORUS LEVEL 2019-06-26 06:25:00 Yunier Stephens [facility] [employer] HC COMPLETE BLD COUNT 2019-06-26 06:25:00 Yunier Stephens [facility] W/AUTO DIFF Wiley VANCOMYCIN LEVEL, RANDOM 2019-06-26 06:25:00 Milton Ellington ESTIMATED GFR 2019-06-26 06:25:00 Milton Ellington POC GLUCOSE 2019-06-25 23:39:00 Milton Ellington HEMODIALYSIS 2019-06-25 21:44:30 Andrews Wright [facility] POC GLUCOSE 2019-06-25 21:14:00 Milton Ellington BASIC METABOLIC PANEL 2019-06-25 18:45:00 Yunier Stephens [facility] [employer] PHOSPHORUS LEVEL 2019-06-25 18:45:00 Yunier Stephens Wiley ESTIMATED GFR 2019-06-25 18:45:00 Yunier Stephens ethodist Wiley POC GLUCOSE 2019-06-25 15:45:00 Milton Ellington POC GLUCOSE 2019-06-25 11:30:00 Milton Ellington POC GLUCOSE 2019-06-25 07:47:00 Milton Ellingtonist POC GLUCOSE 2019-06-25 00:05:00 Milton Ellingtonist POC GLUCOSE 2019-06-24 21:12:00 Milton Ellingtonist POC GLUCOSE 2019-06-24 16:22:00 Milton Ellington POC GLUCOSE 2019-06-24 13:17:00 Milton Ellington HEMODIALYSIS 2019-06-24 11:11:02 Yunier Stephens ethodist Wiley POC GLUCOSE 2019-06-24 07:35:00 Milton Ellington BASIC METABOLIC PANEL 2019-06-24 04:00:00 Yunier Stephens [facility] [employer] MAGNESIUM LEVEL 2019-06-24 04:00:00 Angelo Yunier Madrid ethodist Wiley PHOSPHORUS LEVEL 2019-06-24 04:00:00 Angelo Yunier Johnson Wiley HEPATIC FUNCTION PANEL 2019-06-24 04:00:00 Yris Lagos [facility] HC COMPLETE BLD COUNT 2019-06-24 04:00:00 StephensYunier [facility] W/AUTO DIFF Wiley ESTIMATED GFR 2019-06-24 04:00:00 Angelo Yunier Madrid ethodist [employer] POC GLUCOSE 2019-06-23 18:00:00 Milton Ellington HEMODIALYSIS 2019-06-23 12:21:38 Stephens, Yunier Olea Mercy ethodist Wiley POC GLUCOSE 2019-06-23 11:18:00 Milton Ellington IR TUNNELED DIALYSIS 2019-06-23 10:03:03 Milton Ellington CATHETER PLACEMENT POC GLUCOSE 2019-06-23 09:54:00 Milton Ellington POC GLUCOSE 2019-06-23 08:19:00 Milton Ellington BASIC METABOLIC PANEL 2019-06-23 05:30:00 StephensYunier [facility] [employer] MAGNESIUM LEVEL 2019-06-23 05:30:00 Stephens, Yunier Madrid ethodist [employer] PHOSPHORUS LEVEL 2019-06-23 05:30:00 StephensYunier Wiley HEPATIC FUNCTION PANEL 2019-06-23 05:30:00 Yris Lagos [facility] HC COMPLETE BLD COUNT 2019-06-23 05:30:00 StephensYunier [facility] W/AUTO DIFF Wiley ESTIMATED GFR 2019-06-23 05:30:00 Angelo Yunier Madrid ethodist Wiley POC GLUCOSE 2019-06-22 21:30:00 Milton Ellington POC GLUCOSE 2019-06-22 12:28:00 Milton Ellington POC GLUCOSE 2019-06-22 08:38:00 Milton Ellington BASIC METABOLIC PANEL 2019-06-22 04:30:00 Yunier Stephens Wiley MAGNESIUM LEVEL 2019-06-22 04:30:00 Yunier Stephens ethodist Wiley PHOSPHORUS LEVEL 2019-06-22 04:30:00 Yunier Stephens Wiley HC COMPLETE BLD COUNT 2019-06-22 04:30:00 Yunier Stephens [facility] W/AUTO DIFF Wiley HEPATIC FUNCTION PANEL 2019-06-22 04:30:00 Yris Lagos ESTIMATED GFR 2019-06-22 04:30:00 Yris Lagos thodist POC GLUCOSE 2019-06-22 00:07:00 Milton Ellington POC GLUCOSE 2019-06-21 21:03:00 Milton Ellington POC GLUCOSE 2019-06-21 19:26:00 Milton Ellington POC GLUCOSE 2019-06-21 16:33:00 Milton Ellington XR ABDOMEN 1 VW PORTABLE 2019-06-21 16:08:00 Yris Lagos POC GLUCOSE 2019-06-21 11:46:00 Milton Ellington POC GLUCOSE 2019-06-21 08:15:00 Milton Ellington BASIC METABOLIC PANEL 2019-06-21 04:00:00 Yunier Stephens Wiley MAGNESIUM LEVEL 2019-06-21 04:00:00 Yunier Stephens ethodist Wiley PHOSPHORUS LEVEL 2019-06-21 04:00:00 Yunier Stephens Wiley ESTIMATED GFR 2019-06-21 04:00:00 Yunier Stpehens ethodist Wiley POC GLUCOSE 2019-06-20 21:33:00 Milton Ellington AEROBIC CULTURE 2019-06-20 17:32:00 Milton Ellington GRAM STAIN 2019-06-20 17:32:00 Milton Ellington POC GLUCOSE 2019-06-20 15:51:00 Milton Ellington POC GLUCOSE 2019-06-20 12:25:00 Milton Ellington POC GLUCOSE 2019-06-20 07:34:00 Milton Ellington HEPATIC FUNCTION PANEL 2019-06-20 04:00:00 Yris Lagos [facility] BASIC METABOLIC PANEL 2019-06-20 04:00:00 Yunier Stephens [facility] [employer] MAGNESIUM LEVEL 2019-06-20 04:00:00 Yunier Stephens ethodist Wiley PHOSPHORUS LEVEL 2019-06-20 04:00:00 Yunier Stephens Wiley ESTIMATED GFR 2019-06-20 04:00:00 Yris Lagos thodist POC GLUCOSE 2019-06-19 21:31:00 Milton Ellington CREATININE LEVEL, URINE, 2019-06-19 19:06:00 Javan Mcdowell RANDOM PROTEIN, URINE, RANDOM 2019-06-19 19:06:00 Javan Mcdowell [facility] POC GLUCOSE 2019-06-19 16:08:00 Milton Ellington POC GLUCOSE 2019-06-19 12:34:00 Milton Ellington POC GLUCOSE 2019-06-19 07:42:00 Milton Ellington ANTI MITOCHONDRIA SCREEN 2019-06-19 00:00:00 Yris Lagos HEPATIC FUNCTION PANEL 2019-06-19 00:00:00 Yris Lagos [facility] BASIC METABOLIC PANEL 2019-06-19 00:00:00 Yunier Stephens [facility] [employer] MAGNESIUM LEVEL 2019-06-19 00:00:00 Yunier Stephens ethodist Wiley PHOSPHORUS LEVEL 2019-06-19 00:00:00 Yunier Stephens [facility] [employer] ESTIMATED GFR 2019-06-19 00:00:00 Yunier Stephens ethodist Wiley POC GLUCOSE 2019-06-18 21:10:00 Milton Ellington POC GLUCOSE 2019-06-18 16:07:00 Milton Ellington POC GLUCOSE 2019-06-18 11:14:00 Milton Ellington POC GLUCOSE 2019-06-18 07:29:00 Milton Ellington URINE CULTURE 2019-06-18 07:24:00 Usha Oquendo odjose URINALYSIS SCREEN AND 2019-06-18 05:30:00 Usha Oquendo MICROSCOPY, WITH REFLEX TO CULTURE PROTHROMBIN TIME WITH INR 2019-06-18 05:00:00 Yris Lagos HC COMPLETE BLD COUNT 2019-06-18 05:00:00 Yunier Stephens W/AUTO DIFF Wiley HEPATITIS B SURFACE AB, 2019-06-18 05:00:00 Yris Lagos QUANTITATIVE AMMONIA LEVEL 2019-06-18 05:00:00 Yris Lagos Me thodist HEPATIC FUNCTION PANEL 2019-06-18 04:00:00 Yris Lagos BASIC METABOLIC PANEL 2019-06-18 04:00:00 Yunier Stephens Wiley MAGNESIUM LEVEL 2019-06-18 04:00:00 Yunier Stephens ethodi Wiley PHOSPHORUS LEVEL 2019-06-18 04:00:00 Yunier Stephens Wiley HEPATITIS A ANTIBODY IGM 2019-06-18 04:00:00 Yris Lagos HEPATITIS B CORE ANTIBODY 2019-06-18 04:00:00 Yris Lagos IGM HEPATITIS B CORE ANTIBODY 2019-06-18 04:00:00 Yris Lagos TOTAL HEPATITIS B SURFACE 2019-06-18 04:00:00 Yris Lagos ANTIBODY HEPATITIS B SURFACE ANTIGEN 2019-06-18 04:00:00 Lore Lagos HEPATITIS C ANTIBODY 2019-06-18 04:00:00 Yris Lagos CERULOPLASMIN LEVEL 2019-06-18 04:00:00 Yris Lagos ALPHA FETOPROTEIN 2019-06-18 04:00:00 Demond Yris Johnson ALPHA-1 ANTITRYPSIN LEVEL 2019-06-18 04:00:00 Abhilash Lagoscelestine Johnson ANNE 2019-06-18 04:00:00 Yris Lagos Lefty Me [facility] GGT 2019-06-18 04:00:00 Yris Lagos Lefty Me thodist ESTIMATED GFR 2019-06-18 04:00:00 Yris Lagos Lefty Me thodist POC GLUCOSE 2019-06-17 21:17:00 Milton Ellington POC GLUCOSE 2019-06-17 17:07:00 Milton Ellington US ABDOMEN COMPLETE 2019-06-17 16:48:45 Demond Yris Smith n [facility] US ABDOMINAL DOPPLER 2019-06-17 16:48:35 Demond Yris Cruz on [facility] US RENAL 2019-06-17 14:26:40 Usha Oquendo Meth odist POC GLUCOSE 2019-06-17 11:38:00 Milton Ellington POC GLUCOSE 2019-06-17 08:22:00 Milton Ellington CELIAC DISEASE REFLEXIVE 2019-06-17 04:53:00 Sharon Loving CASCADE BASIC METABOLIC PANEL 2019-06-17 04:53:00 Yunier Stephens Wiley MAGNESIUM LEVEL 2019-06-17 04:53:00 Yunier Stephens ethodist Wiley PHOSPHORUS LEVEL 2019-06-17 04:53:00 Yunier Stephens Wiley ESTIMATED GFR 2019-06-17 04:53:00 Yunier Stephens ethodist Wiley TISSUE TRANSGLUTAMINASE AB, 2019-06-17 04:53:00 Milton Ellington IGA POC GLUCOSE 2019-06-17 00:44:00 Milton Ellington POC GLUCOSE 2019-06-16 21:02:00 Milton Ellington POC GLUCOSE 2019-06-16 16:27:00 Milton Ellington POC GLUCOSE 2019-06-16 12:07:00 Milton Ellington ECG 12-LEAD 2019-06-16 11:18:07 Milton Ellington POC GLUCOSE 2019-06-16 07:25:00 Milton Ellington BASIC METABOLIC PANEL 2019-06-16 04:00:00 Yunier Stephens Wiley MAGNESIUM LEVEL 2019-06-16 04:00:00 Yunier Stephens ethodist Wiley PHOSPHORUS LEVEL 2019-06-16 04:00:00 Yunier Stephens Wiley ESTIMATED GFR 2019-06-16 04:00:00 Yunier Stephens ethodist Wiley POC GLUCOSE 2019-06-15 20:49:00 Milton Ellington POC GLUCOSE 2019-06-15 16:31:00 Milton Ellington FECAL CALPROTECTIN 2019-06-15 16:30:00 Sharon Loving SPIROMETRY, DIFFUSION, LUNG 2019-06-15 14:29:17 Milton Ellington VOLUMES POC GLUCOSE 2019-06-15 12:27:00 Milton Ellington US CAROTID DUPLEX BILATERAL 2019-06-15 11:31:50 Tashia Alfredo POC GLUCOSE 2019-06-15 07:24:00 Milton Ellington HC COMPLETE BLD COUNT 2019-06-15 03:38:00 Milton Ellington W/AUTO DIFF BASIC METABOLIC PANEL 2019-06-15 03:38:00 Yunier Stephens Wiley MAGNESIUM LEVEL 2019-06-15 03:38:00 Yunier Stephens ethodist Wiley PHOSPHORUS LEVEL 2019-06-15 03:38:00 Yunier Stephens Wiley ESTIMATED GFR 2019-06-15 03:38:00 Yunier Stephens ethodist Wiley POC GLUCOSE 2019-06-14 21:02:[address] HEAD WO CONTRAST 2019-06-14 20:31:08 Milton Ellington POC GLUCOSE 2019-06-14 16:31:00 Milton Ellington POC GLUCOSE 2019-06-14 15:36:00 Milton Ellington POC GLUCOSE 2019-06-14 12:06:00 Milton Ellington POC GLUCOSE 2019-06-14 08:38:00 Milton Ellington GASTROINTESTINAL PANEL 2019-06-14 05:48:00 Milton Ellington HEMOGLOBIN A1C 2019-06-14 05:14:00 Milton Ellington LIPID PANEL 2019-06-14 05:14:00 Milton Ellington THYROID STIMULATING HORMONE 2019-06-14 05:14:00 Milton Ellington T4, FREE 2019-06-14 05:14:00 Milton Ellington CBC WITH PLATELET AND 2019-06-14 04:59:00 Milton Ellington DIFFERENTIAL BASIC METABOLIC PANEL 2019-06-14 04:59:00 Milton Ellington ESTIMATED GFR 2019-06-14 04:59:00 Milton Ellington MANUAL DIFFERENTIAL 2019-06-14 04:59:00 Milton Ellington POC GLUCOSE 2019-06-13 21:19:00 Milton Ellington POC GLUCOSE 2019-06-13 16:35:00 Milton Ellington POC GLUCOSE 2019-06-13 11:50:00 Milton Ellington POC GLUCOSE 2019-06-13 08:04:00 Milton Ellington POC GLUCOSE 2019-06-13 08:02:00 Milton Ellington HC COMPLETE BLD COUNT 2019-06-13 05:30:00 Milton Ellington W/AUTO DIFF BASIC METABOLIC PANEL 2019-06-13 04:00:00 Milton Ellington ESTIMATED GFR 2019-06-13 04:00:00 Milton Ellington TROPONIN 2019-06-13 01:36:00 Milton Ellington TROPONIN 2019-06-12 22:55:00 Milton Ellington GASTROINTESTINAL PANEL 2019-06-12 22:05:00 Guillermo Jeffery INFLUENZA ANTIGEN 2019-06-12 21:15:00 Guillermo Jeffery XR CHEST 1 VW PORTABLE 2019-06-12 20:55:50 Guillermo Jeffery ECG ED PRELIMINARY 2019-06-12 19:50:09 Guillermo Jeffery INTERPRETATION URINE CULTURE 2019-06-12 19:49:00 Guillermo Jeffery [facility]odist HC COMPLETE BLD COUNT 2019-06-12 19:49:00 Guillermo Jeffery [facility] W/AUTO DIFF COMPREHENSIVE METABOLIC 2019-06-12 19:49:00 Guillermo Jeffery [place]on [facility] PANEL TROPONIN 2019-06-12 19:49:00 Milton Ellington B NATRIURETIC PEPTIDE 2019-06-12 19:49:00 Guillermo Jeffery PARTIAL THROMBOPLASTIN TIME 2019-06-12 19:49:00 Guillermo Jeffery Ala (PTT) PROTHROMBIN TIME WITH INR 2019-06-12 19:49:00 Guillermo Jeffery ESTIMATED GFR 2019-06-12 19:49:00 Guillermo Jeffery [facility] URINALYSIS SCREEN AND 2019-06-12 19:49:00 Guillermo Jeffery MICROSCOPY, WITH REFLEX TO CULTURE ECG 12-LEAD 2019-06-12 19:42:16 Guillermo Jeffery [facility] RHYTHM STRIP - SCAN 2019-01-12 15:42:05 Provider, Default [facility] POCT-GLUCOSE METER 2019-01-11 12:15:[address] [facility] BASIC METABOLIC PANEL (7) 2019-01-11 05:03:00 Joey Garcia [facility] CBC W/PLT COUNT & AUTO 2019-01-11 05:03:[address] [facility] POCT-GLUCOSE METER 2019-01-10 20:31:00 Joey Garcia [facility] POCT-GLUCOSE METER 2019-01-10 17:28:00 Joey Garcia [facility] CT BRAIN WITHOUT IV 2019-01-10 11:31:00 Toribio Clarke [facility] CT CHEST WITHOUT IV 2019-01-10 11:31:00 [facility] D-DIMER 2019-01-10 11:00:00 [facility] XR CHEST 1 VIEW 2019-01-10 07:16:00 [facility] - PORTABLE/BEDSIDE [facility] ECG 12-LEAD 2019-01-10 06:30:[address] [facility] BASIC METABOLIC PANEL (7) 2019-01-10 06:11:00 Darnell Renner [facility] B-TYPE NATRIURETIC FACTOR 2019-01-10 06:11:00 Michael Abdullahi [facility] (BNP) [facility] TROPONIN I 2019-01-10 06:11:00 Jose Domingagisella Maldonado [facility] CBC W/PLT COUNT & AUTO 2019-01-10 06:11:00 Kecia Logan [facility] ECG 12-LEAD 2019-01-10 06:01:23 Unknown, Hl7 Doctor [facility] TROPONIN I 2019-01-09 23:14:00 [facility] 2019-01-09 21:16:00 Tanvir Hammond [facility] TROPONIN I 2019-01-09 18:27:00 [facility] POCT-GLUCOSE METER 2019-01-09 18:03:00 [facility] POCT-GLUCOSE METER 2019-01-09 12:10:00 Heaven Joneskennewickerica [facility] POCT-GLUCOSE METER 2019-01-09 08:08:00 Marcelino Jones [facility] APTT 2019-01-09 04:35:00 [facility] BASIC METABOLIC PANEL (7) 2019-01-09 04:35:00 Darnell Renner [facility] CBC W/PLT COUNT & AUTO 2019-01-09 04:35:00 Kecia Logan [facility] DIFFERENTIAL [facility] POCT-GLUCOSE METER 2019-01-08 22:07:00 Marcelino Jones [facility] ECHOCARDIOGRAM REPORT - 2019-01-08 21:20:36 Provider, [facility] POCT-GLUCOSE METER 2019-01-08 17:02:00 Marcelino Jones [facility] APTT 2019-01-08 16:03:00 [facility] BASIC METABOLIC PANEL (7) 2019-01-08 16:03:00 Darnell Renner [facility] PT/APTT 2019-01-08 16:03:00 [facility] POCT-GLUCOSE METER 2019-01-08 11:49:00 Heaven Joneskennewickerica [facility] POCT-GLUCOSE METER 2019-01-08 07:33:00 Marcelino Jones [facility] APTT 2019-01-08 04:27:00 Agueda Cruz [facility] CBC W/PLT COUNT & AUTO 2019-01-08 04:22:00 Kecia Logan [facility] DIFFERENTIAL [facility] POCT-GLUCOSE METER 2019-01-07 22:08:00 Marcelino Jones [facility] POCT-GLUCOSE METER 2019-01-07 18:41:00 Marcelino Jones [facility] APTT 2019-01-07 18:40:00 Agueda Cruz [facility] ECHO W CONTRAST & DOPPLER 2019-01-07 16:16:26 Ozzy Bey [facility] POCT-GLUCOSE METER 2019-01-07 14:25:00 [facility] ECG 12-LEAD 2019-01-07 13:40:29 [facility] TROPONIN I 2019-01-07 13:21:00 [facility] POCT-GLUCOSE METER 2019-01-07 12:59:00 Rowena [facility] POCT-GLUCOSE METER 2019-01-07 11:58:00 Rowena [facility] APTT 2019-01-07 11:53:00 [facility] POCT-GLUCOSE METER 2019-01-07 11:03:00 [facility] POCT-GLUCOSE METER 2019-01-07 10:19:00 [facility] POCT-GLUCOSE METER 2019-01-07 09:09:00 [facility] POCT-GLUCOSE METER 2019-01-07 08:04:00 [facility] POCT-GLUCOSE METER 2019-01-07 06:56:00 [facility] BASIC METABOLIC PANEL (7) 2019-01-07 06:01:00 Kecia Logan [facility] MAGNESIUM 2019-01-07 06:01:00 [facility] 2019-01-07 06:01:00 Doreen [facility] TROPONIN I 2019-01-07 06:01:00 Doreen [facility] APTT 2019-01-07 06:01:00 Agueda Cruz [facility] CBC W/PLT COUNT & AUTO 2019-01-07 06:01:00 Doreen [facility] POCT-GLUCOSE METER 2019-01-07 05:59:00 [facility] POCT-GLUCOSE METER 2019-01-07 04:55:00 [facility] POCT-GLUCOSE METER 2019-01-07 04:04:00 [facility] POCT-GLUCOSE METER 2019-01-07 02:56:00 [facility] POCT-GLUCOSE METER 2019-01-07 01:56:00 [facility] POCT-GLUCOSE METER 2019-01-07 01:02:00 [facility] POCT-GLUCOSE METER 2019-01-07 00:13:00 [facility] TROPONIN I 2019-01-06 23:59:00 [facility] B-TYPE NATRIURETIC FACTOR 2019-01-06 23:59:[address] [facility] (BNP) [facility] APTT 2019-01-06 23:59:00 [facility] POCT-GLUCOSE METER 2019-01-06 23:09:00 [facility] XR CHEST 1 VIEW 2019-01-06 22:50:00 [facility] ECG 12-LEAD 2019-01-06 22:10:07 [facility] POCT-GLUCOSE METER 2019-01-06 22:05:[address] BRAIN WITHOUT IV 2019-01-06 21:23:00 Doreen [facility] ECG 12-LEAD 2019-01-06 20:24:31 Doreen dariel [facility] HEPATIC FUNCTION PANEL 2019-01-06 19:15:00 Kecia Logna [facility] PROTHROMBIN TIME/INR 2019-01-06 19:15:00 Kecia Logan [facility] APTT 2019-01-06 19:15:[facility] 19:15[facility] A1C 2019-01-06 19:15:00 Doreen [facility] BASIC METABOLIC PANEL (7) 2019-01-06 19:15:00 Genny Stephens I [facility] CBC W/PLT COUNT & AUTO 2019-01-06 19:15:00 DoreenKecia [facility] POCT-GLUCOSE METER 2019-01-06 17:46:00 Jamel Crawford [facility] Plan of Care Planned Activity Planned Date Details Comments Source Future Scheduled 2021-06-30 DIABETIC RETINAL EYE [facility] 00:00:00 EXAM [code = DIABETIC RETINAL EYE EXAM] Future Scheduled 2019-11-27 INFLUENZA VACCINE [place] [facility] 00:00:00 [code = INFLUENZA VACCINE] Future Scheduled 2017-07-30 COLONOSCOPY SCREENING [place] [facility] 00:00:00 [code = COLONOSCOPY SCREENING] Future Scheduled 2017-07-30 SHINGLES VACCINES [place] [facility] 00:00:00 (#1) [code = SHINGLES VACCINES (#1)] Future Scheduled 1977-07-30 DIABETIC FOOT EXAM [place] [facility] 00:00:00 [code = DIABETIC FOOT EXAM] Encounters Start End Encounter Admission Attending Care Care Encounter Source Date/Time Date/Time Type Type Clinicians Facility Department ID 2019-09-21 2019-09-21 Orders Doctor MARCE [id number] 00:00:00 00:00:00 Only Unassigned, PRISCILA 350.1.13.10 [facility] 4.2.7.2.686 [id number] 2019-06-12 2019-07-16 Inpatient [facility] [id number] [place] 00:00:00 00:00:00 [place] [address] 2019-06-22 2019-06-22 Patient Doctor MARCE [id number] 00:00:00 00:00:00 Secure Msg Unassigned, PRISCILA 350.1.13.10 [facility] 4.2.7.2.686 [id number] 2019-06-14 2019-06-14 Telephone MARCE Rich [id number] 00:00:00 00:00:00 Yvette FRANCOIS 350.1.13.10 [facility] 4.2.7.2.686 [id number] 2019-06-14 2019-06-14 Telephone Ceci, [facility] [id number] 00:00:00 00:00:00 [facility] 350.1.13.10 [place] 4.2.7.2.686 Professio [phone] [place] [address] [address] 2019-06-03 2019-06-03 Telephone Ceci, [facility] [id number] 00:00:00 00:00:00 [facility] 350.1.13.10 [place] 4.2.7.2.686 Professio [phone] [place] [address] [address] 2019-05-26 2019-05-26 Office Ceci, [facility] [id number] 07:34:38 09:02:52 Visit [facility] 350.1.13.10 [place] 4.2.7.2.686 Professio [phone] [place] [address] [address] Results Test Description Test Time Test Comments Results Result Comments Source POC glucose 2019-07-16 12:30:05 Test Item Value Reference Range Interpretation Comme nts POC glucose (test code = 253 mg/dL 65-99 H Ope rator Name: Ney Child 84357-0) ID: [id number] hartable: [facility] Notified glass deposition tender Interpretation (test code = Abnormal 45381-6) [place] [facility] [id number] 07:23:50 Test Item Value Reference Range Interpretation Comments Sodium (test code = 2951-2) 142 135- 148 mEq/L Potassium (test code = 2823-3) 4.3 3.5- 5.0 mEq/L Chloride (test code = 2075-0) 105 98- 112 mEq/L CO2 (test code = 8-9) 27 24- 31 mEq/L Anion gap (test code = 20729-9) 10@ANIO 7- 15 mEq/L BUN (test code = 3094-0) 46 mg/dL 6-20 H Creatinine (test code = 2160-0) 4.61 mg/dL 0.7-1.2 H Glucose (test code = 2345-7) 189 mg/dL 65-99 H Calcium (test code = 33728-2) 8.7 mg/dL 8.3-10.2 Lab Interpretation (test code = Abnormal 92160-8) Lefty MethodistEstimated [id number] 07:23:50 Test Item Value Reference Range Interpretation Comments Estimated GFR (test 14 mL/min/1.73 m2 Ev rowe Units code = 5488) InterpretationG 1 >=90 Cora l or highG2 60-89 Mildly decrease dG3a 45-59 Mil dly to moderately decr nfqefP0y 30-44 Moderately to s everely decreasedG4 15-29 Severe ly decreasedG5 <15 Kidney jesica lureThe eGFR was calcul ated using the [facility] Kidney Disease Epidemiology Collaboration ( CKD-EPI) equation. Interpretation is based on recommendati ons of the National Ki dney Foundation-Kidn ey Disease Outcome s Quality Initiat christa (NKF-KDOQI) pub lished in 2013. Lab Interpretation Abnormal (test code = 39011-4) [facility]efty MethodistPhosphorus [id number] 07:23:49 Test Item Value Reference Range Interpretation Comments Phosphorus (test code = 2777-1) 4.3 mg/dL 2.4-4.5 Olea MethodistCBC with platelet and fzswxmraiaky6952-62-60 07:33:09 Test Item Value Reference Range Interpretation Comments WBC (test code = 11677-0) 6.44 4.50- 11.00 k/uL RBC (test code = 17238-1) 3.54 m/uL 4.4-6 L HGB (test code = 718-7) 10.6 g/dL 14-18 L HCT (test code = 4544-3) 31.2 % 41-51 L MCV (test code = 787-2) 88.1 fL 82-100 MCH (test code = 785-6) 29.9 pg 27-34 MCHC (test code = 786-4) 34.0 g/dL 31-37 RDW - SD (test code = 44.3 fL 37-55 22708-1) MPV (test code = 33183-0) 12.1 fL 8.8-13.2 Platelet count (test code 157 150- 400 k/uL = 13335-1) Nucleated RBC (test code 0.00 /100 WBC = 41317-6) Neutrophils (test code = 48.0 % 39-69 21540-4) Lymphocytes (test code = 32.5 % 25-45 44508-6) Monocytes (test code = 7.8 % 0-10 21237-0) Eosinophils (test code = 10.6 % 0-5 H 16363-6) Basophils (test code = 0.9 % 0-1 70767-1) Immature granulocytes 0.2 % 0-1 "Immat ure (test code = 39043-7) granul ocytes" (promyelocytes, myelocytes, metamyelocytes) Lab Interpretation (test Abnormal code = 97118-8) [place] MethodistMagnesium [id number] 07:17:31 Test Item Value Reference Range Interpretation Comments Magnesium (test code = 59988-6) 1.9 mg/dL 1.6-2.6 [place] MethodistHypersensitivity pneumonitis [id number] 10:14:04 Test Item Value Reference Interpretation Comments Range Aspergillus flavus None Detected None-Detected Testing includes (test code = 07401-5) antibo dies directed at Aspergillus flavus, Aspergi llus fumigatus #2, Aspergillus fum igatus #3, Saccharomon ospora viridis, and Thermoactinomyc es candidus. Aspergillus fumigatus None Detected None-Detected #2 (test code = 46175-1) Aspergillus fumigatus None Detected None-Detected #3 (test code = 27218-0) Saccharomonospora None Detected None-Detected viridis (test code = 46128-7) Thermoactinomyces None Detected None-Detected Performe d by SRINIVAS barlow (test code = Terry hummel,500 91420-2) Manuela Hansen, [place] [address] szf .[email or web address], Roberto Almaguer MD, La b. Director Thermoactinomyces NOT PERFORMED saccharii (test code = WITH THIS 70440-3) PANEL [place] MethodistHypersensitivity pneumonitis [id number] 01:53:46 Test Item Value Reference Interpretation Comments Range Aspergillus fumigatus None Detected None-Detected #1 (test code = 6808-0) Aspergillus fumigatus None Detected None-Detected #6 (test code = 6809-8) Aureobasidium None Detected None-Detected Testing incl udes pullulans (test code = antib odies directed 6810-6) at Aureobadiu m pullulans, Aspergillus fum igatus #1, Aspergillus fumigatus #6, Micropolyspora faeni, [place] Serum an d Thermoactinomyc es vulgaris #1. [place] serum (test None Detected None-Detected code = 6733-0) Micropolyspora faeni None Detected None-Detected (test code = 6818-9) Thermoactinomyces None Detected None-Detected Performe d by ARUP vulgaris #1 (test code Labor atories,500 = 6821-3) Manuela Hansen [facility],[place] [address] fbb .Liveclubsupl [email or web address] [email or web address], Roberto Almaguer MD, Juanita jane. Director [place] MethodistCT Chest Wo [id number] 10:29:13Hm Interface, Radiology Results - 07/11/2019 10:32 AM CDTEXAMINATION:CT CHEST WO CONTRASTCLI NICAL HISTORY:ILD Shortness of breathTECHNIQUE:Multiple axial images of the chest were obtained without intravenous contrast. The lack of intravenous contrast reduces the sensitivity of detecting solid organ disease and evaluating vasculature. Sagittal and coronal computerized reformatted images werealso obtained.All CT scan performed using radiation dose reduction techniques. Technical factors areevaluated and adjusted to ensure appropriate moderation of exposure. Automated dose management technology is applied to adjust the radiation dose to minimize expose while achieving a diagnostic quality image.COMPARISON:CTA cardiac overread 07/06/2019FINDINGS:Lungs and pleura: Moderate improvement of bilateral lower lobes groundglass opacities and nodular consolidations is seen. There is also moderateimprovement of today's right upper lobe and right middle lobe nodular consolidations to the extent visualized on the prior study. Moderate improvement of patchy left upper lobe nodular infiltrates the extent visualized is also seen. A pleural effusion is identified. There is no evidence of pneumothoraxHeart: The heart is normal in size. No pericardial effusion is seen. Moderate atherosclerotic coronary artery calcifications are noted.Vasculature: The thoracic aorta is not well evaluated without the use of intravenous contrast. Scatter atherosclerotic disease of the thoracic aorta is noted. There isno evidence of aortic aneurysm. The pulmonary vasculature is unremarkable.Adenopathy: No gross evidence of mediastinum, hilar or axillary lymphadenopathy.Others: The visualized portions of the upper abd ominal are within normal limits. Soft tissue and osseous structures are unremarkable.IMPRESSION:Overall moderate improvement of bilateral groundglass and nodular consolidations, predominantly involving the lower lobes, in the interim, suggestive of improvement of multifocal pneumonia. Recommend clinical correlation..[facility]-[id number] MethodistFerritin fmmbo1058-87-62 14:34:03 Test Item Value Reference Range Interpretation Comments Ferritin level (test code = 2276-4) 214 ng/mL 30-400 [place] MethodistTotal iron binding mjualrlx8737-37-62 14:29:17 Test Item Value Reference Range Interpretation Comments Iron level (test code = 2498-4) 72 ug/dL 59-158 Iron binding capacity (test code = 298 ug/dL 086-564 8009-7) % Saturation (test code = 2502-3) 24.2 % 20-40 [place] YobanyistAnti-neutrophilic cytoplasmic Abs [id number] 15:24:12 Test Item Value Reference Range Interpretation Comments ANCA screen (test code = 3472) Negative Negative [place] MethodistFL Modified Barium [id number] 15:02:46Hm Interface, Radiology Results Incoming - 07/09/2019 3:05 PM CDTEXAMINATION: FL MODIFIED BARIUM SWALLOWCLINICAL HISTORY: aspiration dysphagia unspecifiedCOMPARISON: 02/13/2019Fluoroscopy time: 1.2minutesTotal patient dose: 7.5 mGyFINDINGS: The patient swallowed varying consistencies of barium under direct lateral fluoroscopic evaluation. The study was performed in conjunction with speech pathology.IMPRESSION:Laryngeal penetration with thin barium. Contrast remained above the vocal folds. No evidence of aspiration.Please refer to Speech Pathology report for further details.[facility]-[id number] and approved by rn radiology/fellow: Cely Babcock, Adriana Morales MD, personally reviewed the images and resident's/fellow's findings and agree with the final report.Olea MethodistDNA Ab [id number] 14:55:49 Test Item Value Reference Range Interpretation Comments DNA Ab screen (test code = 1297) Not Detected Not-Detected [place] MethodistHepatic function [id number] 07:12:14 Test Item Value Reference Range Interpretation Comments Albumin (test code = 2.4 g/dL 3.5-5 L 1751-7) Total bilirubin (test code <0.2 0-1.2 = 1974-) Bilirubin direct (test <0.2 0-0.3 code = 1967-) Alkaline phosphatase (test 133 U/L 40-129 H code = 6768-6) Protein (test code = 6.9 g/dL 6.3-8.3 -[place] n 2885-2) 4.6-7.0 g /dL1 week 4.4-7.6 g/dL 7 months-1year 5.1-7.3 g/dL 1-2 years 5.6-7.5 g/dL>3 years 6.0-8.0 g/hO02-703 6.3-8. 3 g/dL ALT (test code = 1742-6) 20 U/L 5-50 AST (test code = 1920-8) 20 U/L 10-50 Lab Interpretation (test Abnormal code = 38988-4) [place] MethodistImmunoglobulin [id number] 18:32:35 Test Item Value Reference Range Interpretation Comments IgG (test code = 2465-3) 1005 mg/dL 700-1600 [place] MethodistCentromere njdquhap2412-38-58 18:10:06 Test Item Value Reference Range Interpretation Comments Centromere antibody <0.2 0.0- 0.9 AI (test code = 8068-9) Centromere antibody Negative AI Anti-kyrie tromere interp (test code = antibodi es are found 81252-3) in patients wit h systemic sclero sis (SSc or sclerod obinna), especially for those with limited cu taneous or CREST syndro me. Anti-centromere antibodies may also be found in patien ts with other rheumatic or connective tiss ue diseases. [place] MethodistScl-70 [id number] 18:10:06 Test Item Value Reference Range Interpretation Comments Scleroderma SCL-70 Ab <0.2 0.0- 0.9 AI (test code = 33955-1) Scl-70 antibody interp Negative AI Anti- Scl-70 (test code = 5268) (topoisom erase I) antibodies are found in patients with s ystemic sclerosis (SSc or scleroderma), a nd have been reported t o be predictive of d iffuse cutaneous invol vement. Anti-Scl-70 ant ibodies may also be pre sent in patients with s ystemic lupus erythemat osus (SLE). Olea MethodistSS-A peaybwjx6141-66-58 18:10:06 Test Item Value Reference Range Interpretation Comments Sjogren's SS-A <0.2 0.0- 0.9 AI antibody (test code = 29077-6) SS-A antibody interp Negative AI SS-A an tibody is (test code = 2235) sensitive for Sjogren's syndrome, but m ay also be positive with s ystemic lupus erythemat osus (SLE), and syst emic sclerosis. [place] MethodistSS-B [id number] 18:10:05 Test Item Value Reference Range Interpretation Comments Sjogren's SS-B <0.2 0.0- 0.9 AI antibody (test code = 3001) SS-B antibody interp Negative AI SS-B/La antibody is seen (test code = 2237) in patien ts with Sjogren syndrome, but m ay also be positive with s ystemic lupus erythemat osus (SLE), and syst emic sclerosis. [place] MethodistCT Cardiac Yqnendwc3622-04-47 19:51:26Hm Interface, Radiology Results - 07/06/2019 7:54 PM CDTEXAMINATION: CT CARDIAC OVERREADCL INICAL HISTORY: Radiology overread of imaging performed in the cardiology department. Only extracardiac structures are assessed. 53 years Male CADTECHNIQUE: Please refer to cardiology note for details on the acquisition technique.COMPARISON: None.FINDINGS: Extracardiac findings:Lungs and airways: Scattered airspace disease with groundglass opacities in the right middle lobe, peripherally in the right lower lobe and left lower lobe. Mild bronchiectasis throughout. An underlying infectious/inflammatory process cannot be excluded further characterization with dedicated CT of the chest is recommended Pleura: No pleural effusion or pneumothorax.Mediastinum and lymph nodes: No lymphadenopathy. Upper abdomen: No suspicious abnormalities.Musculoskeletal: Degenerative changes of the osseous structures.No suspicious lesions.Please refer to separately dictated cardiology report for cardiac and vascular findings.IMPRESSION:1.Scattered airspace disease, groundglass opacities and bronchiectasis in the lung bases. Further characterization with CT of the chest is recommendedHouboston lying-in hospital MethodistCv cta coronary arteries w contrast and ffr if ihytso0536-70-38 17:59:00Interface, Radiology Results In - 07/06/2019 5:59 PM CDT Nuclear Cardiology and Cardiac CT [address] [place] [address] CTA Coronary Arteries ReportPat.Name: PAOLA ENGEL Pat.ID: [id number] .Date: 07/06/2019 Refer.MD: MILTON ELLINGTON MDExam Time: 1:09:00 PMStudy Type:CTA Coronary Arteries Height: 67in Weight: 212lb BSA: 2.07 m2 Age: 4 1965,53Y Sex: MALE BP: 151/83 HR: 54 bpm Nuclear Tech:RT Yuni(R)(CT)Pat. Stat.:Inpatient Tape Vol: 33.2, CPT - 4: CCTA w Thoracic Aorta (NonCongenital) [id number] Event ID:[id number] Order ID: [id number] Reason for Study:Pre-Op CABG, CAD History / Clinical:Coronary artery disease, Diabetes, Hyperlipidemia,Hypertension, S/P PCI 07/2007, Liver cirrhosis/Hepatitis CProcedures: CT Prospective(phases)Race: C SUMMARY: Technique: IV contrast was administered and sequential 0.[address] cutswere obtained through the chest using the Siemens Somatom Frontier pte CTscanner. Image post-processing consisting of multiplanar and 3Dreconstructions were performed using the Sundar adFreeqiSpaceworkstation. Interactive image viewing, volumetric display andanalysis were also performed. CTA RESULTSLeft Main: A long4.1 artery which arises normally from the left sinus ofValsalva and divides into the left anterior descending, circumflex,and ramus coronary arteries. Moderate calcified and non-calcifiedatherosclerotic plaque is present but without significant stenosis.Left anterior descending (LAD): A normal sized 3.5 mm artery which wraps around the apex and gives offtwo diagonal branches. Severe calcified and non-calcifiedatherosclerotic plaque is present in the proximal, mid and distalsegments with severe >70% stenosis in the proximal segment. Thedistal LAD beyond the takeoff of the second diagonal is a 2mm arterywith mild to moderate predominantly calcified atherosclerotic plaquebut no significant stenosis.Patent 17 mm long stent in the mid left anterior descending coronaryartery.The first diagonal ángela 2.8 mm trifurcating artery which has moderatecalcified and non-calcified atherosclerotic plaque pre sent withapproximately 50% stenosis. The second diagonal is a 1.5 mm artery which has no significantatherosclerotic plaque present. Left circumflex: A normal sized 3.3 mm non-dominant artery which arises normally fromthe left main and gives off one major obtuse marginal artery beforeterminating in theAV groove. Moderate calcified and non-calcifiedatherosclerotic plaque is present in the proximal segment withapproximately 40% proximal stenosis.The first obtuse marginal is a 2.5 mm quadfurcated artery which hasmoderate calcified and non- calcified atherosclerotic plaque presentwith subtotal vs. totalocclusion after the stent. Patent 17 mm long stent in the first obtuse marginal artery. Right coronary artery: A normal sized 4.2 mm dominant artery which arises normally from theright sinus of Valsalva and gives off several right ventricularbranches, the posterior descending artery and the posterolateralartery. Moderate calcified and non-calcified atherosclerotic plaque ispresent in the proximal, mid and distal segments with severe >70%stenosis in the mid segment between the two stents. Patent 16 mm long stent in the proximal segment and patent 33 mm longstent in the distal segment of the rightcoronary artery. The posterior descending is a 1.8 mm bifurcating artery which hasmoderate predominantly calcified atherosclerotic plaque present but nosignificant stenosis. The posterolateral is a large 2.9 mm trifurcating artery which hasmild calcified atherosclerotic plaque present but no significantstenosis. Ramus: A 1.8 mm artery which has mild calcified atherosclerotic plaquepresent but without significant stenosis. Stents: Patent stent in the left anterior descending coronary artery.Patent 17mm long stent in the first obtuse marginal artery. Patent 16 mm long stent in the proximal segment and patent 33 mm longstent in the distal segment of the right coronary artery. Bypass Grafts: None. Pulmonary Arteries:Normal pulmonary artery sizes with no proximal thrombus identified.Left Atrial and Pulmonary Vein Dimensions:Left atrial size (A-P diameter) 4.4 cm.Left atrial volume 90 ml.Normal PV anatomy Left superior PV18mm. Left inferior PV14 mm. Right superior PV18 mm. Right inferior PV16 mm. There is no evidence of the left atrial appendage clot.Left Ventricular Valve Morphology/Function:LV septal wall thickness 16 mm.LV end-diastolic volume 137 ml.Aortic valve is tri- leaflet with trace aortic regurgitation (AROA<0.05cm2)Mitral valve is normal without evidence of significant stenosisThoracic Aortic Dimensions:No aortic aneurysm or dissection is seen. Aortic root 3.7 cm.Sinotubular junction 2.6 cm.Mid ascending aorta 2.9 cm.Descending thoracic aorta 2.3 cm.Pericardium:No pericardial effusion or pericardial thickening.Non-Cardiac Findings:Mild bilateral pulmonary congestion.SVC catheter.CONCLUSIONCoronary CTA shows severe coronary atherosclerosis with severestenosis of the proximal left anterior descending and mid rightcoronary arteries; moderate stenosis of the first diagonal; andsubtotal vs. total occlusion of the distal first obtuse marginalartery.Patent stent in the left anterior descending coronary artery.Patent 17 mm long stent in the first obtuse marginal artery. Patent 16 mm long stent in the proximal segment and patent 33 mm longstent in the distal segment of the right coronary artery. Aortic valve is tri-leaflet with trace aortic regurgitation (AROA<0.05cm2)Mitral valve is normal without evidence of significant stenosis Normal PV anatomy. There is no evidence of the left atrial appendage clot.Please refer to the separate radiology report in [facility] for anyaddi tional non-cardiovascular findings. STUDY QUALITYThe study quality is good.COMMENTSNone. FINDINGS: Signed 07/06/2019 05:59 Bethany Olvera MethodistSurgical pathology [id number] 13:32:02 Test Item Value Reference Range Interpretation Comments Case number (test code = [id number]) Surgical pathology See link below for report (test code = PDF Lab Report 2255) Result status (test code This is Final Report = [id number]) for [id number] Lefty JohnsonHIV Ag/Ab megrddbjxia6762-62-98 09:39:34 Test Item Value Reference Range Interpretation Comments HIV Ag/Ab combination (test code Non-reactive Non-reactive = 5299) Lefty JohnsonProthrombin time with [id number] 07:38:02 Test Item Value Reference Range Interpretation Comments Prothrombin time (test 14.5 11.5- 14.5 sec code = 5902-2) INR (test code = 1.1 [facility] 78537-5) Normalized Rati o (INR) is a therapeutic m onitoring tool for patien ts who are stable on oral anticoagulant t herapy. An INR of 2.0-3.0 is suggested for d eep vein thrombosis/pulm onary embolism. Lefty JohnsonC4 complement [id number] 07:25:14 Test Item Value Reference Range Interpretation Comments C4 complement (test code = 4498-2) 34 mg/dL 10-40 Lefty HaywoodistC3 complement yuoqeodjp7161-95-83 07:25:14 Test Item Value Reference Range Interpretation Comments C3 complement (test code = 4485-9) 133 mg/dL 90-180 Lefty HaywoodistRheumatoid [id number] 07:25:13 Test Item Value Reference Range Interpretation Comments Rheumatoid factor (test code = 64947-9) <10 0- 13 IU/mL Lefty JohnsonTransthoracic Echocardiogram Complete, (w Contrast, Strain and 3D if needed)2019-07-05 10:49:00Interface, Radiology Results In - 07/05/2019 10:49 AM CDT Echocardiography Report [id number] [address] Pat.Name: PAOLA ENGEL Pat.ID: [id number].Date: 07/05/2019 Refer.MD: MILTON ELLINGTON MDExam Time: 7:54:00 AM Study Type:Routine Echo Height: 67in Weight: 212lb BSA: 2.07 m2 Age: 4 1965,53Y Sex: MALE BP: 157/71 Sonogrphr: Audrey Bella RDCS, RVSPat. Stat.:Inpatient Room: [facility] Study Status:Final Echo Event ID:[id number] Order ID: [id number] Reason for Study:Chest pain, suspected cardi ac etiologyHistory / Clinical:Chest Pain, Diabetes, Hyperlipidemia, Hypertension,Cirrhosis, NE, Infectious Viral HepatitisProcedures: 2D Echo, Colorflow DopplerRace: C ------- SUMMARY: LV EF is normal. Estimated EF is 65-69%RV systolic function is normal.LV filling pressure is normal. Normal RAP.No significant valvular abnormalities. FINDINGS: LV: LV size is normal. There is mild concentric LV hypertrophy. LV EF is normal. Overall wall motion is normal. Estimated EF is 65-69%RV: RV size is normal. RV systolicfunction is normal.LA: LA volume is moderately to severely enlarged.RA: RA size is normal.AO: Aortic root diameter is normal.MACHO: No pericardial effusion.AV: No structural AV abnormalities noted. A trace of aortic regurgitation. MV: No structural MV abnormalities noted. A trace of mitral regurgitation. PV: No structural PV abnormalities noted. A trace of pulmonic regurgitation. TV: No structural TV abnormalities noted. A traceof tricuspid regurgitation Jose: LV relaxation is impaired. LV filling pressure is normal. Hepatic vein pressure is normal, RA pressure < 5mmHg.Other: Insufficient TR jet to estimate PA systolic pressure. MEASUREMENTS: 2DParasternal Long [place] Ao An 2 cm LVPWd 1.5 cm Ao Rtd 3.6 cm Index 1.8 cm/m2 LA Ds 4.8 cm IVSd 1.4 cm RWT 0.68 LVIDd 4.4 cm Index 2.1 cm/m2 LV Mass 260 g (122-174) LVIDs 2.5 cm LVM Index 126 g/m2 LV%fs 43 % LA Sng PlaneLA Area 27 cm2 (8.8-23.4) LA Vol 95 ml Index 46 ml/m2 LA LngAx 6.4 cm RA Sng Plane RA Vol 35 ml Index 17 ml/m2RA LngAx 4.8 cm RA Area 14 cm2 (8.3- 19.5)Aorta Ao Asc 3 cm (2.1-3.4)LVOT Stroke Vol LVOT 2.1 cm LVOT LVOT Area 3.5 cm2 DOPPLERLVOT Stroke Vol LVOT TVI 22 cm LVOT CI 2.1 l/m/m2 LVOT SV 75 ml HR 59 bpm LVOT CO 4.4 l/min LVOT SVi 36 ml/m2 Signed 07/05/2019 10:49 Bethany Rain MethodistVancomycin level, [id number] 06:48:15 Test Item Value Reference Range Interpretation Comments xavi Shaw (test code = 11.9 ug/mL 09277-1) Lefty JohnsonVENIPUNC NEED PHYS SKILL,DX OR [id number] 14:59:18SEstela lim RN 07/02/2019 3:03 PMMidlineDate/Time: 07/02/2019 2:59 PMPerformed by: Rain, ArmiAuthorized by: Milton Ellington Sr., MD Consent: Consent obtained: Verbal Consent given by:Patient Risks discussed: arterial puncture, incorrect placement, nerve damage, infection, bleeding,superficial thrombus and deep vein thrombus Alternatives discussed: No treatment, delayed treatment and alternative treatmentUniversal protocol: Procedure explained and questions answered to patient or proxy's satisfaction: yes Relevant documents present and verified: yes Test results available and properly labeled: yes Imaging studies available: yes Required blood products, implants,devices, and special equipment available: yes Site/side marked: yes Immediately prior to proced ure, a time out was called: yes Patient identity confirmed: Verbally with patient, arm band and hospital-assigned identification numberPre-procedure details: Hand hygiene: Hand hygiene performed prior to insertion Sterile barrier technique: All elements of maximal sterile technique followed Skin preparation: ChloraPrep Skin preparation agent: Skin preparation agent completely dried prior to procedure Anesthesia (see MAR for exact dosages): Anesthesia method: Local infiltration Local anesthetic: Lidocaine 1% w/o epi Route of administration: SubcutaneousLine Placement Details:Patient position: Flat Vessel Size (mm): 4.5. Indication: Poor venous access and known long termIV therapy Location: Right basilic Device Type: Non-valved Catheter size: 4 Fr Catheter to vein ratio: 31% Line Characteristics: Catheter Brand: GodigexFlo Midline External Catheter Length (cm): 0 Internal Catheter Length (cm): 10 Total Catheter Length (cm): 10 Catheter Lot Number: [id number] Catheter Expiration Date: 1Procedure Details: Landmarks identified: yes Ultrasound guidance: yes Sterile ultrasound techniques: Sterile gel and sterile probe covers were usedNumber of attempts: 1 Number of PICC kits used during procedure: 1 Purpose of procedure: Midline Placement Patency/Placement: Flushes without difficulty, extension tubing placed, flushed with 10mL normal saline, positive blood return and injection cap placed PICC placed utlizing ultrasound-guided Modified Seldinger Technique: Yes Dressing/Securement: Catheter securement device and antimicrobial dressing applied Blood Loss Amount: Less than 20 mLPost-Procedure Details: Post-procedure: Dressing applied Patient tolerance of procedure: Tolerated well, no immediate complicationsLefty MethodistVancomycin level, trough 2019-07-01 15:28:35 Test Item Value Reference Range Interpretation Comments Vancomycin, trough 23.0 ug/mL 10-20 HH Therapeut ic Ranges: (test code = 27196-6) Peak 30.0 - 40.0 ug/mL T rough 10.0 - 20.0 ug/mL Lab Interpretation Abnormal (test code = 53364-1) Lefty Gilmore Transjugular Liver [id number] 16:47:45Hm Interface, Radiology Results - 06/30/2019 4:50 PM CSTPerforming RadiologistJeveronica Lauren MD AssistantsNone Anesthesia TypeModerate sedation was administered by the procedure nurse and monitored by the procedure physician for a ejvf-on-ssow sedation time of 20 minutes. Lidocaine 1% was usedfor local anesthetic. Pre Procedure Hllhpxzyj21-ivgh-fmc man with possible cirrhosis.. Post Procedure DiagnosisStatus post CO2 right hepatic venogram with pressure measurements and transjugular liver biopsy. Procedure1. CO2 right hepatic venogram with pressure measurements. 2. Transjugular liver biopsy. TechniqueWritten informed consent was obtained prior to the procedure. All elements of maximal sterile barrier technique were followed. The patient's right neck was sterilely prepared and draped in the routine manner. Lidocaine 1% was used for local anesthetic. Using real-time ultrasound guidance, q54-iqbhm micropuncture needle was used to access the [...] into the inferior vena cava. A long 9-Sri Lankan vascular sheath was then placed,andadvanced over the guidewire into the right atrium. Right atrial pressure measures were then obtained. A 5-Sri Lankan multipurpose catheter was advanced over the guidewire and used to select the right hepatic vein. A CO2 right hepatic venogram was performed. Pressure measurements were also obtained in boththe free and wedge positions. The 9-Sri Lankan vascular sheath was then advanced into the right hepatic vein. The transjugular liver biopsy system was advanced through the 9-Sri Lankan vascular sheath, and multiple 18-gauge core liver biopsy specimens were obtained and submitted to pathology. The transjugularliver biopsy system and 9-Sri Lankan vascular sheath were then removed from the right internal jugular vein, and hemostasis was achieved with compression. The patient tolerated the procedure well. Radiation DoseKa,r = 160 mGyComplicationsNone Specimens RemovedAs described in the above report. Estimated Blood LossLess than 5 mL Blood/Blood Products AdministeredNone Grafts/ImplantsNone Impression: 1. Normal CO2 right hepatic venogram 2. Successful transjugular liver biopsy was performed, as detailed above. 3. Pressure measurements: Right atrium: 9 mmHg Free hepatic: 11 mmHg Wedge hepatic: 15 mmHg [id number] [facility] 12 [id number] 18:56:23 Test Item Value Reference Range Interpretation Comments Ventricular rate (test 62 code = 253) Atrial rate (test code 62 = 255) [place] interval (test code 152 = 266) QRSD interval (test 144 code = 260) QT interval (test code 510 = 264) QTC interval (test code 517 = 265) P axis 1 (test code = 24 267) QRS axis 1 (test code = 85 268) T wave axis (test code 34 = 270) EKG impression (test Normal sinus code = 273) rhythm-Right bundle branch block-Abnormal ECG-In automated comparison with ECG of 27-JUN-2019 08:13,-No significant change was found- [facility] CenterEghvztzeuLyiodyfg4798-76-66 10:42:45 Test Item Value Reference Range Interpretation Comments Troponin (test code = <0.006 0-0.04 [place] [address]-6) having a myocar dial infarction, mara bhavin with all other appro priate clinical measur es and actions includi ECG and other diagnosti cs as appropriate, me asure Ultra TnI at 0 hrs and at 3 hrs.Myocardia l infarction VERY LIKELYThe 0 hr TnI level is > 0.10 ng/mL --Myocardial in farction LIKELYThe 0 hr TnI level is > 0.04 ng/mL and 3 hr level is increa sed or decreased by at least 0.020 ng/mL -------Bhanu cardial infarct ion VERY UNLIKELYBoth th e 0 hr and 3 hr TnI levels <= 0.04 ng/mL(within no rmal limits) OR 0 hr is > 0.04 ng/mL and 3 hr is increased OR de creased by less than 0.020 ng/mL Lefty HaywoodistAnti smooth muscle Ab [id number] 14:32:24 Test Item Value Reference Range Interpretation Comments Anti smooth muscle Ab screen Not Detected Not-Detected (test code = 262) Lefty Gilmore Tunneled Dialysis Catheter [id number] 07:28:35Hm Interface, Radiology Results 06/24/2019 7:31 AM CSTPERFORMING RADIOLOGIST:Will Petersen MD ASSISTANTS:None. ANESTHESIA TYPE:Moderate sedation was administered by the procedure nurse and monitored by the procedure physician for a total cztv-ni-zgpy sedation time of 8 minutes. Lidocaine 1% and lidocaine 1% with epinephrine were used for local anesthetic. ANTIBIOTICS:None.PRE PROCEDURE DIAGNOSIS:Need for long-term dialysis POST PROCEDURE DIAGNOSIS:Status post tunneled right internal jugular vein hemodialysis catheter placement. PROCEDURE:Placement of a tunneled right internal jugular vein hemodialysis catheter. TECHNIQUE:Written informed consent was obtained prior to the procedure. All elements of maximal sterile barrier technique were followed. The patient's right neck andupper chest were sterilely prepared and draped in the routine manner. Under ultrasound guidance, docu mentation of vessel patency, needle access with permanent recording, and reporting are performed followed by placement of a sheath in the right internal jugular vein.Using real ultrasound guidance, lidocaine 1% was administered to the overlying soft tissues via 25-gauge needle. Again, using real-time ultrasound guidance, a 21-gauge micropuncture needle was advanced successfully into the target vein. A 0.018 inch guidewire was advanced centrally through the needle under fluoroscopy. The needle was removed and a micropuncture sheath system was then placed. The inner dilator and guidewire were thenremoved, and a 0.035 inch Amplatz wire was advanced through the micropuncture sheath and successfully into the inferior vena cava. The infraclavicular fossa was anesthetized with lidocaine 1% mixed with epinephrine. A [...] fluoroscopic guidance. All ports were tested and demonstrate adequate flow. The catheter was secured to the skin using 2-0 silk suture. The small venotomy incision was closed with 3-0 Vicryl suture and Dermabond. The patient tolerated the procedure well. RADIATION DOSE:Ka,r = 5 mGyCOMPLICATIONS:None. SPECIMENS REMOVED:None. ESTIMATED BLOOD LOSS:Less than 2 mL. BLOOD PRODUCTS ADMINISTERED:None. GRAFTS/IMPLANTS:As described in the above report. IMPRESSION:Successful fluoroscopic-guided placement of a 19 cm long tip to cuff tunneled hemodialysis catheter via the right internal jugular vein with tip at superior cavoatrial junction. PLAN:-Catheter is ready for immediate use.[facility]-[id number] Methodlovelace women's hospitalGram qdpzi8706-73-08 21:21:01Gram stain isolateRare WBC'sMany Gram negative rodsRare Gram positive cocci in pairs Comment: Specimen InformationSpecimen Source: DrainageSpecimen Site: Not otherwise specified [facility] MethodistAnti mitochondria [id number] 15:12:05 Test Item Value Reference Range Interpretation Comments Anti mitochondria screen (test Not Detected Not-Detected code = 1686) [facility] Abdomen 1 Tmycepis2162-30-21 18:02:41Hm Interface, Radiology Results Incoming - 06/21/2019 6:05 PM CSTEXAMINATION: XR ABDOMEN 1 PORTABLECLINICAL HISTORY: Abd pain unspecified, BLQ abdominal pain rule out ileus or constipationCOMPARISON: Fluoroscopic images from 05/19/2008IMPRESSION:Artifact overlying the abdomen mildly limits evaluation.No dilated gas-filled loops of large or small bowel are noted. The patient is status post cholecystectomy.The bones of the abdomen and pelvis are unremarkable.The lung bases are clear.[id number]-[id number] MethodistProtein, urine, ybyrhx8238-28-25 20:50:36 Test Item Value Reference Range Interpretation Comments Protein, urine random (test code = 584 mg/dL 2888-6) Lefty MethodistCreatinine level, urine, [id number] 20:39:45 Test Item Value Reference Range Interpretation Comments Creatinine, urine, random (test code 99 mg/dL = 63625-5) Lefty HaywoodistHepatitis B surface Ab, tpklayeardvq6635-63-84 18:16:55 Test Item Value Reference Range Interpretation Comments Hepatitis B surface <3.10 IU/L The anti -HBs is less than Ab (test code = 10 IU/L and is therefore 5193-8) negative. There is no evidence of rec overy from hepatitis B inf ection or evidence of ant ibody response to HBV vaccination.An anti-HBs result greater than or equal to 10 IU/ L implies immunity. For post-vaccinatio n antibody testing guideli yuliana for the general public refer to MMWR March 292004/Vol. 54(No. 16);-23 , and for healthcare work ers refer to MMWR March 292012/Vol. 62(No. 10);-19 .Reference Interval: anti- HBs 9.99 IU/L or less .. ..... Ybhaoudi78.00 I U/L or greater .... PositiveResults greater than 1,000.00 I U/L are reported as gre ater than 1,000.00 IU/L. This assay should not be u sed for blood donor scr eening, associated re-e ntry protocols, or f or screening Human Cell, Tis sues and Cellular and Ti ssue-Based Products (HCT/P ).Performed by [employer] ElectricSATHISH bustos,[address], [place] [address] ksm .[employer] , Roberto Almaguer MD, Lab. Director Lefty HaywoodjoseUrine [id number] 10:35:14 Test Item Value Reference Range Interpretation Comments Urine culture No growth Specimen isolate (test after 24 InformationSpe cimen code = 53797-5) hours Source: Urin eSpecimen Site: Clean cat Olea IwgxdfcdyFFT1323-06-90 13:23:19 Test Item Value Reference Range Interpretation Comments ANNE screen (test Negative Negative Test perfor med using NOVA code = 550) Lite DAPI ANNE k it (Indirect Immunofluoresce nce Assay) for Anti-Nuclea r Antibody on The[employer] QUANTA-Ly ser 160 Analyzer. [place] MethodistHepatitis B core antibody [id number] 08:03:43 Test Item Value Reference Range Interpretation Comments Hepatitis B core total Ab (test Non-reactive Non-reactive code = 75120-0) [place] MethodistHepatitis B core antibody [id number] 08:03:43 Test Item Value Reference Range Interpretation Comments Hepatitis B core IgM (test code Non-reactive Non-reactive = 51310-3) [place] MethodistHepatitis A antibody [id number] 08:03:43 Test Item Value Reference Range Interpretation Comments Hepatitis A IgM (test code = Non-reactive Non-reactive 15039-9) [place] MethodistHepatitis C odnnofei7171-23-33 08:03:43 Test Item Value Reference Range Interpretation Comments Hepatitis C Ab (test code = Non-reactive Non-reactive 37638-5) [place] MethodistAmmonia pydci3673-13-90 08:01:41 Test Item Value Reference Range Interpretation Comments Ammonia (test code = 1841-6) 63 umol/L 16-60 H Lab Interpretation (test code = Abnormal 06977-4) [place] MethodistHepatitis B surface [id number] 07:28:04 Test Item Value Reference Range Interpretation Comments Hepatitis B surface Ag (test Non-reactive Non-reactive code = 5195-3) [place] MethodistHepatitis B surface cryvlrjz7816-30-86 07:28:04 Test Item Value Reference Range Interpretation Comments Hepatitis B surface Ab (test Non-reactive Non-reactive code = 18591-8) [place] MethodistUrinalysis screen and microscopy, with reflex to culture 2019-06-18 07:26:53 Test Item Value Reference Range Interpretation Comments Specimen site (test code = Clean catch 0504497) Color, UA (test code = 5778-6) Yellow Appearance, UA (test code = Cloudy 5767-9) Specific gravity, UA (test code = 1.011 1.001-1.035 5811-5) pH, UA (test code = 5803-2) 5.0 5.0-8.5 Protein, UA (test code = 39821-4) 3+ Negative A Glucose, UA (test code = 80321-1) 1+ Negative A Ketones, UA (test code = 2514-8) Negative Negative Bilirubin, UA (test code = Negative Negative 5770-3) Blood, UA (test code = 5794-3) Small Negative A Nitrite, UA (test code = 5802-4) Negative Negative Urobilinogen, UA (test code = <2.0 <2.0 84132-8) Leukocyte esterase, UA (test code Negative Negative = 5799-2) WBC, UA (test code = 5821-4) 14 0- 1 /HPF H RBC, UA (test code = 52009-3) 1 0- 5 /HPF Bacteria, UA (test code = Few None seen 22105-5) WBC clumps, UA (test code = Few A 44577-1) Yeast, UA (test code = 32916-6) None seen Yeast with pseudohyphae, UA (test None seen code = 63955-3) Amorphous crystals (test code = Few 21905-0) Granular casts, UA (test code = 1 0- 1 /LPF 5793-5) Lab Interpretation (test code = Abnormal 26655-7) Lefty MethodistAlpha pcmdufgpdjc3276-44-32 07:19:58 Test Item Value Reference Range Interpretation Comments Alpha fetoprotein 1.6 ng/mL 0-8.3 The Lexis 8000 AFP (test code = immunoassay was used. 18378-8) Results obtaine d with different assay methods or kits should not be used interchang eably and may be differen t. Lefty MethodistCeruloplasmin [id number] 07:17:32 Test Item Value Reference Range Interpretation Comments Ceruloplasmin (test code = 2064-4) 22 mg/dL 15-30 Lefty [id number] 07:17:31 Test Item Value Reference Range Interpretation Comments GGT (test code = 2324-2) 80 U/L 0-59 H Lab Interpretation (test code = Abnormal 59672-8) Lefty MethodistAlpha-1 antitrypsin [id number] 07:17:31 Test Item Value Reference Range Interpretation Comments Alpha-1 antitrypsin (test code = 166 mg/dL 90-200 6771-0) [place] MethodistTissue transglutaminase Ab, [id number] 17:53:26 Test Item Value Reference Range Interpretation Comments Tissue 1 U/mL 0-3 No further sheldon ac transglutaminase Ab, testing to be IgA (test code = 2324) perfo rmed.INTERPRETIV E INFORMATION: Tissue Transglutaminas e (tTG) Antibody, IgA3 U/mL or less: Negative4-10 U/ mL: Weak Xwmvvduy91 U/mL or greater: PositivePresenc e of the tissue transglutaminas e (tTG) IgA antib radha is associated with glutensensitive enteropathies s uch as celiac disease and dermatitis herpetiformis. tTG IgA antibody concentrations greater than 40 U/mL usually correla te with results of duodenal biopsi es consistent with a diagnosis of ce liac disease. For an tibody concentrations greater or equa l to 4 U/mL but less t perez or equal to 40 U/m L, additional test ing for endomysial (KATELIN) IgA concentrati ons may improve the positive predic tive value for disease.Perform ed by [facility],[address] [facility], [facility] [address] zel .[employer], Roberto Almaguer MD, Juanita b. Director BRENT (test code = BRENT) CO2 called with reae back to Yu Kwon/ [facility] at 06/16/2019 08:04 by JN1. [place] MethodistUS Abdomen [id number] 16:55:54Hm Interface, Radiology Results - 06/17/2019 4:59 PM CSTEXAM: US ABDOMEN COMPLETECLINICAL D KISHA: 53 years Male Cirrhosis or Fatty LiverCOMPARISON: June 17, 2019FINDINGS:LIVER: There is increased echogenicity. No mass or intrahepatic ductal dilatation identified.PORTAL VEIN: Normal in diameter measuring 1.1 cm and patent with normal hepatopetal flow.GALLBLADDER: RemovedCOMMON DUCT: 0.3 cm.PANCREAS: Unremarkable, although portions are obscured by shadowing.SPLEEN: 11 cm.KIDNEYS:Right kidney:The right kidney measures 11.9 cm.There is normal echogenicity.There are no focal masses.There are no calcificationsThere is no hydronephrosis.Left kidney: The left kidney measures 12.0 cm.There is normal echogenicity.There are no focal masses.There are no calcificationsThere is no hydronephrosisAORTA: Visualized aorta is nonaneurysmal.IVC: Visualized inferior vena cava is unremarkable.ASCITES: No free fluid or fluid collection.PLEURAL EFFUSION: No appreciable pleural effusion.IMPRESSION:*Fatty infiltration of the liverThank you for allowing us to participate in the care of your patient.[facility]-[id number] MethodUNM [facility] Abdominal [id number] 16:52:25Hm Interface, Radiology Results Incoming 06/17/2019 4:55 PM CSTEXAMINATION: US ABDOMINAL DOPPLERCLINICAL HISTORY: rule out portal HTN hx of cirrhosisCOMPARISON: None.TECHNIQUE: Wagner scale, colorDoppler and spectral waveform analysis of the hepatic and upper abdominal vasculature.IMPRESSION:PORT AL VEIN: Main portal vein measures 15 mm, with velocity of 17.2 cm/sec. Main, right, and left portal veins are patent with hepatopetal flow.HEPATIC VEINS: The middle, right and left hepatic veins are patent and demonstrate acceptable waveforms.HEPATIC ARTERIES: The proper, right, and left hepaticarteries are identified with appropriate waveforms.INFERIOR VENA CAVA: Patent.SUPERIOR MESENTERIC VEIN: Not visualized.SPLENIC ARTERY AND VEIN: Splenic artery and vein are identified and are patent.[facility]-[id number] MethodUNM [facility] Renal 2019-06-17 14:29:49Hm Interface, Radiology Results Incoming - 06/17/2019 2:32 PM CSTEXAMINATION: US RENALCLINICAL HISTORY: Flank pain stone disease suspectedCOMPARISON: None.IMPRESSION: The right kidney measures 12cm in length.The left kidney measures 13.9 cm in length.There is no renal mass, stone, cyst, or hydronephrosis. Echogenicity is normal.The urinary bladder is unremarkable.[facility]-[id number] MethodistCeliac disease reflexive cascade 2019-06-17 07:55:20 Test Item Value Reference Range Interpretation Comments IgA (test code = 449 mg/dL 68-408 H Total IgA i s within 2458-8) or higher than established ran ges. Tissue Transglutaminas e, IgA to follow.REFERENC E INTERVAL: Immunoglobulin AAccess complet e set of age- and/or gender-specific reference inter vals for this test i n the [employer] [facility] Test Directory ([employer]).P erfor med by [employer],[address] [place] [place] [address] ggv .[facility], Roberto Almaguer MD, Juanita jane. Director BRENT (test code = BRENT) CO2 called with reae back to Yu Kwon/ [facility] at 06/16/2019 08:04 by JN1. Lab Interpretation Abnormal (test code = 69570-2) [place] Methodistcal qolnypdssync1531-49-71 13:53:32 Test Item Value Reference Range Interpretation Comments Fecal calprotectin (test code = 57.64 <15.6-120mg/kg 08964-2) [place] MethodistUs carotid [id number] 20:05:00Interface, Radiology Results In - 06/15/2019 8:06 PM [facility] Vascular Ultrasound Laboratory Carotid Artery Duplex [address] [place] [address] For senior quality analyst purposes, the categorization of the degree of the stenosis of this exam is based on criteria described in the IAC carotid stenosis grading white paper( www.intersocietal.org/Vascular) and Thanh Nava., Derrick Fountain., et al. Carotid artery stenosis: wagner-scale and Doppler US diagnosis--Society of Radiologists in Ultrasound Consensus Conference. Radiology. 2003 Nov; 229(2):340-6. Pat.Name: PAOLA ENGEL Pat.ID: [id number] .Date: 06/15/2019 Refer.MD: MILTON ELLINGTON MDExam Time: 11:04:00 AM Study Type:Carotid Height: 67in Weight: 212lb BSA: 2.07 m2 Age: 4 1965,53Y Sex: MALE BP: 116/68 Sonogrphr: Suad Greco RDCS, RVTPat. Stat.:Inpatient Room: [address] Tape Vol: ED, CPT - 4: 95304 Echo Event ID:[id number] Order ID: [id number] Reason for Study:Pre-op evaluation History / Clinical:Smoker, CAD, S/p NE, DM, HTN, HLD, Liver cirrhosis,Chest pain, ObesityProcedures: Colorflow, Grayscale/2D, Pulsed wave DopplerRace: C SUMMARY: PHYSICAL ASSESSMENT Blood Pulses Carotid Pressure Carotid Temporal BruitRight 116/68 + + 0Left IV + + 0CAROTID ARTERY SCANRIGHT:There is intimal thickening in the common carotid artery.There is hard plaque noted in the bulb andthe origin of the externalcarotid artery. The internal carotid artery is clear. Colorflow isnormal. LEFT: There is intimal thickening in the common carotid artery.There is hard plaque noted in thebulb and the origin of the internalcarotid artery. The external carotid artery is clear. Colorflow is normal. PRELIMINARY FINDINGS1. Non-stenotic plaque in the right bulb and at the origin of theright external carotid artery.2. <50% stenosis in the bulb and left internal carotid artery. 3. Antegrade vertebral artery flow bilaterally.PHYSICIAN INTERPRETATION Bilateral carotid duplex examination d emonstrated atheroscleroticplaques in the bulbs/ CCAs. Less than 50% stenosis in the bulb and internal carotid artery,bilaterally.Both vertebral arteries are antegrade. --FINDINGS: Carotid Findings: Right Left Verteb.Flw Antegrade Antegrade Subclavian Triphasic Triphasic MEASUREMENTS: DOPPLERLeft CCA Dist CCA Dist PSV 85.6 cm/s CCA Dist EDV 21.2 cm/sLeft CCA Mid CCA Mid PSV 98.2 cm/s CCA Mid EDV 15.7 cm/sLeft CCA Prox CCA Prox PSV 102 cm/s CCA Prox EDV 18.9 cm/sLeft ICA Dist ICA Dist PSV 71.1 cm/s ICA Dist EDV 25.5 cm/sLeft ICA Mid ICA Mid PSV 85.7 cm/s ICA Mid EDV 25.2 cm/sLeft ICA Prox ICA Prox PSV 55.4 cm/s ICA Prox EDV 19.6 cm/sLeft ECA Prox ECA Prox PSV 104 cm/s ECA Prox EDV 11 cm/sLeft SCA Prox SCA Prox PSV 147 cm/s Left Vertebral Vertebral PSV 46.9 cm/sVertebral EDV 14.1 cm/sRight CCA Dist CCA Dist PSV 70.4 cm/s CCA Dist EDV 11.7 cm/ sRight CCA Mid CCA Mid PSV 65.7 cm/s CCA Mid EDV 11.7 cm/sRight CCA Prox CCA Prox PSV 89.1 cm/s CCA Prox EDV 14.1 cm/sRight ICA Dist ICA Dist PSV 63.3 cm/s ICA Dist EDV 24 cm/sRight ICA Mid ICA Mid PSV 79.7 cm/s ICA Mid EDV 24cm/sRight ICA Prox ICA Prox PSV 77.4 cm/s ICA Prox EDV 24 cm/sRight ECA Prox ECA Prox PSV 104 cm/s ECA Prox EDV 9.97 cm/sRight SCA Prox SCA Prox PSV 109 cm/s Right Vertebral Vertebral PSV 36.9 cm/s Vertebral EDV 10.6 cm/sRight ICA/CCA Ratio ICA/CCA PSV 1.18 Left ICA/CCA Ratio ICA/CCA PSV 0.564 Sign ed 06/15/2019 08:05 PMValentín Vallejo MD, [facility] MethodistSpirometry, diffusion, lung [id number] 14:29:17 Test Item Value Reference Range Interpretation Comments FEV1 Pre (test code = 2.23 L 2.81-4.22 5348) FEV1/FVC % Pre (test code 83.41 % 69.78-87.97 = 5361) FVC Pre (test code = 5354) 2.67 L 3.64-5.3 PEF Pre (test code = 5367) 3.64 L/s 6.66-11.53 FEF 25-75% Pre (test code 2.18 L/s 1.8-4.96 = 5547) DLCO Pre (test code = 15.47 21.28- 37.21 ml/(min*mmHg) 5423) DL/VA Pre (test code = 3.63 3.49- 5.90 ml/(min*mmHg*L) 5437) VA SB Pre (test code = 4.26 L 4.88-7.61 5444) DLCOc Pre (test code = 16.48 21.28- 37.21 ml/(min*mmHg) 5430) KCOc SB Pre (test code = 3.86 3.49- 5.90 ml/(min*mmHg*L) 5535) Hb Pre (test code = 5540) 12.6 g(Hb)/dL R0.5IN Pre (test code = 1.36 3.06- 3.06 cmH2O*s/L 5514) FRCpl Pre (test code = 2.47 L 2.36-4.34 5388) RV Pre (test code = 5402) 2.17 L 1.45-2.8 TLC Pre (test code = 5416) 5.09 L 5.37-7.67 RV % TLC Pre (test code = 42.72 % 24.87-42.83 5409) VC Pre (test code = 5374) 2.91 L 3.64-5.3 ERV Pre (test code = 5381) 0.3 L 1.23-1.23 IC Pre (test code = 5395) 2.62 L 3.07-3.07 sR0.5IN Pre (test code = 4.12 cmH2O*s 5521) Raw Pre (test code = 5507) 2.87 3.06- 3.06 cmH2O*s/L sGaw Predicted (test code 0.12 0.08- 0.08 1/(cmH2O*s) = 5528) FEV1 Predicted (test code 3.51 = 5302) FEV1 LLN (test code = 2.81 5347) FEV1 % Pre of Predicted 63.4 % (test code = 5308) FVC Predicted (test code = 4.47 5307) FVC LLN (test code = 5353) 3.64 FVC % Pre of Predicted 59.7 % (test code = 5355) FEV1/FVC % Predicted (test 79 code = 5359) FEV1/FVC % LLN (test code 70 = 5360) FEV1/FVC % Pre of 105.8 % Predicted (test code = 5362) FEF 25-75% Predicted (test 3.38 code = 5546) FEF 25-75% LLN (test code 1.8 = 5545) FEF 25-75% % Pre of 64.5 % Predicted (test code = 5548) PEF Predicted (test code = 9.09 5310) PEF LLN (test code = 5366) 6.66 PEF % Pre of Predicted 40.1 % (test code = 5368) VC Predicted (test code = 4.47 5372) VC LLN (test code = 5373) 3.64 VC % Pre of Predicted 65.2 % (test code = 5375) ERV Predicted (test code = 1.23 5379) ERV LLN (test code = 5380) 1.23 ERV % Pre of Predicted 24.1 % (test code = 5382) FRCpl % Predicted (test 3.35 code = 5386) FRCpl % LLN (test code = 2.36 5387) FRCpl % Pre of Predicted 73.7 % (test code = 5389) IC Predicted (test code = 3.07 5393) IC LLN (test code = 5394) 3.07 IC % Pre of Predicted 85.2 % (test code = 5396) RV Predicted (test code = 2.12 5400) RV LLN (test code = 5401) 1.45 RV % Pre of Predicted 102.4 % (test code = 5403) RV % TLC Predicted (test 34 code = 5407) RV % TLC LLN (test code = 25 5408) RV % TLC % Pre of 126.2 % Predicted (test code = 5410) TLC Predicted (test code = 6.52 5414) TLC LLN (test code = 5415) 5.37 TLC % Pre of Predicted 78.1 % (test code = 5417) Raw Predicted (test code = 3.06 5505) Raw LLN (test code = 5506) 3.06 Raw % Pre of Predicted 93.8 % (test code = 5508) R0.5IN Predicted (test 3.06 code = 5512) R0.5IN LLN (test code = 3.06 5513) R0.5IN % Pre of Predicted 44.4 % (test code = 5515) sGaw Predicted (test code 0.08 = 5526) sGaw LLN (test code = 0.08 5527) sGaw % Pre of Predicted 138 % (test code = 5529) DLCO Predicted (test code 29.25 = 5421) DLCO LLN (test code = 21.28 5422) DLCO % Pre of Predicted 52.9 % (test code = 5424) DLCOc Predicted (test code 29.25 = 5428) DLCOc LLN (test code = 21.28 5429) DLCOc % Pre of Predicted 56.3 % (test code = 5431) DL/VA Predicted (test code 4.69 = 5435) DL/VA LLN (test code = 3.49 5436) DL/VA % Pre of Predicted 77.3 % (test code = 5438) KCOc SB Predicted (test 4.69 code = 5533) KCOc SB LLN (test code = 3.49 5534) KCOc SB % Pre of Predicted 82.3 % (test code = 5536) VA SB Predicted (test code 6.24 = 5442) VA SB LLN (test code = 4.88 5443) VA SB % Pre of Predicted 68.3 % (test code = 5445) [facility] Wo [id number] 20:36:27Hm Interface, Radiology Results 06/14/2019 8:39 PM CSTEXAM: CT HEAD WO CONTRASTCLINICAL H ISTORY: Seizure new nontraumatic >40 yrs, pain to right side of face numbness and tinglingTECHNIQUE: Noncontrast enhanced images of the brain were obtained from the skull base to the vertex. Both soft tissue and bone reconstruction algorithms were performed. CT scans are performed using radiati on dose reduction techniques (iterative reconstruction and/or automated exposure control). Technicalfactors are evaluated and adjusted to ensure appropriate moderation of exposure. 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 There is no evidence for acute intracranial hemorrhage, mass, mass effect, hydrocephalus, or extra-axial fluid collection.Orbits are unremarkable. Paranasal sinuses are clear. Mastoid air cells are normally pneumatized. Osseous structures are intact.IMPRESSION:There is a subtle focal area of hyper attenuation involving the posterior/inferior right cerebellum which is new from the prior examination of 2018, reflective of a small infarct of uncertain but likely chronic timeframe.The wagner-white matter differentiationis otherwise preserved and without evidence of acute territorial infarction. No parenchymal hemorrhage.MRI of the brain can be obtained for further evaluation if clinically indicated.[facility]-[id number] [facility] [id number] 13:46:31Gastrointestinal panelNegative for all pathogens tested:Negative for SalmonellaNegative for CampylobacterNegative for Diarrheagenic E coli/ShigellaNegative for Shiga-like toxin-producing E coliNegativefor Plesiomonas shigelloidesNegative for Yersinia enterocoliticaNegative for Vibrio speciesNegative for Clostridium difficile (Toxin A/B)Negative for CryptosporidiumNegative for Giardia lambliaNegativefor Cyclospora cayeteanensisNegative for Entamoeba histolyticaNegative for Adenovirus F 40/41Negative for AstrovirusNegative for Norovirus GI/GIINegative for Rotavirus ANegative for SapovirusNegative for Clostridium difficile toxinNegative for E coli 0157This real-time PCR assay detects the presence of nucleic acids (RNA or DNA) for the gastrointestinal pathogens listed.A result of "Not-detected" does not exclude the possibility of the presence of one or more pathogens at concentrations less than the detectable limits of the assay. Comment: Specimen InformationSpecimen Source: StoolSpecimen Site: Nonpreserved [facility] MethodistManual [id number] 08:23:11 Test Item Value Reference Range Interpretation Comments Manual differential (test code = PERFORMED 36023-8) Neutrophils (test code = 53.0 % 39-69 54775-1) Lymphocytes (test code = 36.0 % 25-45 70297-8) Monocytes (test code = 67514-0) 6.0 % 0-10 Eosinophils (test code = 4.0 % 0-5 97507-5) Basophils (test code = 62722-4) 1.0 % 0-1 Metamyelocytes (test code = 0 % 740-1) Promyelocytes (test code = 0 % 783-1) Platelet slide review (test code Rebekah adequate = 44221-6) Anisocytosis (test code = 702-1) Moderate Polychromasia (test code = Moderate 91881-3) Ovalocytes (test code = 774-0) Moderate [place] [facility] hospitalH[facility] [id number] 08:03:34 Test Item Value Reference Range Interpretation Comments Hemoglobin A1C (test 12.6 % 4-5.6 H HbA1c c utoffs for code = 54906-1) diagnosing diabetes:4.0% - 5.6% = normal5.7% - 6.4% = increased risk for diabetes (prediabetes)9> =6.5% = smwdnlmj9Izqf s for glycemic contro l (ADA 2016)< 7.0% Ta rget for non adults with win betes. More or less stringent targe ts may be appropriate for individual virginie ents. <7.5% Target for Children and adolescents wit h type 1 diabetes. Lab Interpretation (test Abnormal code = 82499-5) [place] Latter-DayT4, [id number] 06:34:11 Test Item Value Reference Range Interpretation Comments T4, free (test code = 3024-7) 0.8 ng/dL 0.9-1.7 L Lab Interpretation (test code = Abnormal 25643-5) [facility] HospitalThyroid stimulating [id number] 06:34:11 Test Item Value Reference Range Interpretation Comments TSH (test code = 3016-3) 1.95 0.27- 4.20 uIU/mL [facility] HospitalLipid [id number] 06:30:05 Test Item Value Reference Interpretation Comments Range Cholesterol (test 177 mg/dL <200 code = 2093-3) Triglycerides (test 407 mg/dL <150 H code = 2571-8) HDL cholesterol 32 mg/dL >40 L (test code = 2085-9) LDL cholesterol 104 mg/dL <100 H Result obtai jessica by direct (test code = 2089-1) LDL yady surement Lipid panel SeeBelow Total Cholester ol (mg/dL) interpretation (test < 200 code = 92697-4) Desirable 200-239 Borderline -high >=240 Hi gh Triglyceri caleb (mg/dL) <150 No rmal 150-199 Borderline-high 200-499 High >=500 Very high HDL Choles terol (mg/dL) <40 Low (male) < 40 Low (female) L DL Cholesterol (mg /dL) <100 Optimal 1 00-129 Near or above o ptimal 130-159 Borderline-high 160-189 High >=190 Very high Risk Cat ergories that modify LDL goals.Risk Catergories LDL goal (mg/dL )CHD and CHD risk equiva lent <100 (10-year risk >20%)Multiple ( 2+) risk factors < 130 (10-year risk = <20%)0-1 risk factors <160 (<10-ye ar risk) Defining levels of lipids in metabolic syndromeTriglyc erides > =150 mg/dLHDL Choles terol Men <40 mg/dL Women <40 mg/dL Non-HDL cholest jean marie is a second target f or therapy in personswith high triglycerides ( >=200 mg/dL) Lab Interpretation Abnormal (test code = 68002-6) [place] MethodistInfluenza [id number] 00:42:57 Test Item Value Reference Range Interpretation Comments Influenza Negative for Specimen antigen (test Influenza A/B [facility] ecimen code = 18576-7) antigen. Source: [facility] rockinghammaged Site: Right [place] MethodistXR Chest 1 Vw [id number] 20:58:31Hm Interface, Radiology Results - 06/12/2019 9:01 PM CSTEXAMINATION: XR CHEST 1 VW PORTABLECLINICAL HISTORY: tachyCOMPARISON: 03/20/2018IMPRESSION:No radiographic evidence for acute cardiopulmonary process.Cardiomediastinal silhouette is within normal limits of size.No focal or confluent airspace consolidation is seen on this single AP plane to suggest acute pneumonia. No sizable pleural e ffusion. No pneumothorax identified.No acute osseous abnormalities are visualized.[facility]-[id number] MethodistB natriuretic [id number] 20:55:06 Test Item Value Reference Range Interpretation Comments BNP (test code = 53 pg/mL 0-100 85130-0) BRENT (test code = BRENT) GLU results called to and read back by TOSHIA NIEVES (name/location)at _ 06/12/2019 20:51 BY [facility] MethodistComprehensive metabolic [id number] 20:50:02 Test Item Value Reference Range Interpretation Comments Sodium (test code = 137 135- 148 mEq/L 2951-2) Potassium (test code = 3.9 3.5- 5.0 mEq/L 2823-3) Chloride (test code = 103 98- 112 mEq/L 2075-0) CO2 (test code = 2027-9) 19 24- 31 mEq/L L Anion gap (test code = 15@ANIO 7- 15 mEq/L 76166-3) BUN (test code = 3094-0) 25 mg/dL 6-20 H Creatinine (test code = 2.04 mg/dL 0.7-1.2 H 2160-0) Glucose (test code = 519 mg/dL 65-99 HH 2345-7) Calcium (test code = 10.1 mg/dL 8.3-10.2 69357-4) Protein (test code = 8.4 g/dL 6.3-8.3 H [place] 9994.6-7.0 2885-2) g/dL1 wxjg1255.4-7.6 g/dL7 months-8yrvj921 .1- 7.3 g/dL1-2 gergv881.6-7.5 g/dL>3 .0-8.0 g/eG84-7711532. 3-8 .3 g/dL Albumin (test code = 3.1 g/dL 3.5-5 L 1751-7) A/G ratio (test code = 0.6 0.7-3.8 L 1759-0) Alkaline phosphatase 166 U/L 40-129 H (test code = 6768-6) AST (test code = 1920-8) 23 U/L 10-50 ALT (test code = 1742-6) 24 U/L 5-50 Total bilirubin (test 0.3 mg/dL 0-1.2 code = 1975-2) Lab Interpretation (test Abnormal code = 54652-2) [place] MethodistPartial thromboplastin time, [id number] 20:31:46 Test Item Value Reference Range Interpretation Comments PTT (test code = 28.1 23.0- 36.0 [place] [address]-8) unfractionated heparin is61.0-112.0 se conds which corresponds to Anti-Xa0.3-0.7 U/ml. [facility] ED Preliminary Interpretation - Not an [id number] 19:50:09 Test Item Value Reference Range Interpretation Comments BRENT (test code = BRENT) Guillermo Jeffery MD 06/22/2019 10:44 [facility] ED Preliminary Interpretation - Not an OrderPerformed by: Guillermo Jeffery MDAuthorized by: Guillermo Jeffery MD ECG reviewed by ED Physician in the absence of a shoe salesman: yes Previous ECG: Previous ECG: UnavailableInterpretat ion: Interpretation: abnormal Rate: ECG rate: 113 ECG rate assessment: tachycardic Rhythm: Rhythm: sinus tachycardia Ectopy: Ectopy: none QRS: QRS axis: Normal QRS intervals: NormalConduction: Conduction: abnormal Abnormal conduction: LPFB ST segments: ST segments: NormalOther findings: Other findings: prolonged qTc interval Lab Interpretation Abnormal (test code = 73961-9) [facility] 12 [id number] 14:04:08Interface, External Ris In - 01/12/2019 2:04 PM CDTVentricular Rate 77 BPMAtrial Rate 77 BPMP-R Interval 138 msQRS Duration 144 msQ-T Interval 442 msQTC Calculation(Bazett) 500 msP [place] 30 degreesR [place] 41 degreesT [place] 30 degreesNormal sinus rhythmLimb lead misplacementRight bundle branch blockNonspecific T wave abnormalityProlonged QTAbnormal ECGWhen compared with ECG of 10-JAN-2019 06:01,Limb leads are now misplacedConfirmed by MD JOEY, ERLINChery ([id number]) on 01/12/2019 2:04:04 [facility]-Glucose [id number] 12:50:00 Test Item Value Reference Range Interpretation Comments POC-Glucose Meter (test 119 mg/dL 70-110 H TEST ED AT [facility] code = 1538) [address] [facility] [place] 7[address] 0 Lab Interpretation (test Abnormal code = 71183-3) [facility]-GLUCOSE [id number] 12:50:00 Test Item Value Reference Range Interpretation Comments POC-GLUCOSE METER 119 mg/dL 70-110 H TESTED AT [facility] 6720 (BEAKER) (test code = [facility] 1538) [address] Basic Metabolic [id number] 06:16:00 Test Item Value Reference Range Interpretation Comments Sodium (test code = 139 meq/L 620-891 3476-2) Potassium (test code = 4.5 meq/L 3.5-5.1 2823-3) Chloride (test code = 109 meq/L 98-107 H 2075-0) CO2 (test code = 23 meq/L 22-29 2028-9) BUN (test code = 30 mg/dL 7-21 H 3094-0) Creatinine (test code = 1.87 mg/dL 0.57-1.25 H 2160-0) Glucose (test code = 219 mg/dL 70-105 H 2345-7) Calcium (test code = 8.9 mg/dL 8.4-10.2 79992-1) EGFR (test code = 38 mL/min/1.73 [place] [address]-5) NOT ACCURATE CREATININE CLEARANCE IN PREDICTING GLOMERULAR FILTRATION RATE . ESTIMATED GFR I S NOT APPLICABLE FOR DIALYSIS PATIEN TS. Lab Interpretation Abnormal (test code = 46200-5) [facility] METABOLIC [id number] 06:16:00 Test Item Value Reference Range Interpretation Comments SODIUM (BEAKER) 139 meq/L 136-145 (test code = 381) POTASSIUM (BEAKER) 4.5 meq/L 3.5-5.1 (test code = 379) CHLORIDE (BEAKER) 109 meq/L 98-107 H (test code = 382) CO2 (BEAKER) (test 23 meq/L 22-29 code = 355) BLOOD UREA NITROGEN 30 mg/dL 7-21 H (BEAKER) (test code = 354) CREATININE (BEAKER) 1.87 mg/dL 0.57-1.25 H (test code = 358) GLUCOSE RANDOM 219 mg/dL 70-105 H (BEAKER) (test code = 652) CALCIUM (BEAKER) 8.9 mg/dL 8.4-10.2 (test code = 697) EGFR (BEAKER) (test 38 mL/min/1.73 [place] GFR IS code = 1092) sq m NOT ACCURATE CREATININE CLEARANCE IN PREDICTING GLOMERULAR FILTRATION RATE . ESTIMATED GFR I S NOT APPLICABLE FOR DIALYSIS PATIEN TS. CBC with platelet count + automated [id number] 05:42:00 Test Item Value Reference Range Interpretation Comments WBC (test code = 6690-2) 4.1 3.5- 10.5 K/L RBC (test code = 789-8) 3.72 4.63- 6.08 M/L L MCHC (test code = 786-4) 34.5 32.3- 36.5 GM/DL L Hematocrit (test code = 4544-3) 33.6 % 40.1-51 L MCV (test code = 787-2) 90.3 fL 79-92.2 MCH (test code = 785-6) 31.2 pg 25.7-32.2 RDW (test code = 788-0) 13.7 % 11.6-14.4 Platelets (test code = 777-3) 170 150- 450 K/CU MM MPV (test code = 15737-5) 11.8 fL 9.4-12.4 nRBC (test code = 413) 0 0- 0 /100 WBC % Neutros (test code = 429) 53 % % Lymphs (test code = 430) 32 % % Monos (test code = 431) 7 % % Eos (test code = 432) 6 % % Baso (test code = 437) 1 % # Neutros (test code = 670) 2.17 1.78- 5.38 K/L # Lymphs (test code = 414) 1.31 1.32- 3.57 K/L L # Monos (test code = 415) 0.29 0.30- 0.82 K/L L # Eos (test code = 416) 0.26 0.04- 0.54 K/L # Baso (test code = 417) 0.03 0.01- 0.08 K/L Immature Granulocytes-Relative 1 % 0-1 (test code = 2801) Lab Interpretation (test code = Abnormal 44368-4) [facility] W/PLT COUNT & AUTO [id number] 05:42:00 Test Item Value Reference Range Interpretation Comments WHITE BLOOD CELL COUNT (BEAKER) 4.1 K/ L 3.5-10.5 (test code = 775) RED BLOOD CELL COUNT (BEAKER) 3.72 M/ L 4.63-6.08 L (test code = 761) HEMOGLOBIN (BEAKER) (test code = 11.6 GM/DL 13.7-17.5 L 410) HEMATOCRIT (BEAKER) (test code = 33.6 % 40.1-51.0 L 411) MEAN CORPUSCULAR VOLUME (BEAKER) 90.3 fL 79.0-92.2 (test code = 753) MEAN CORPUSCULAR HEMOGLOBIN 31.2 pg 25.7-32.2 (BEAKER) (test code = 751) MEAN CORPUSCULAR HEMOGLOBIN CONC 34.5 GM/DL 32.3-36.5 (BEAKER) (test code = 752) RED CELL DISTRIBUTION WIDTH 13.7 % 11.6-14.4 (BEAKER) (test code = 412) PLATELET COUNT (BEAKER) (test 170 K/CU MM 150-450 code = 756) MEAN PLATELET VOLUME (BEAKER) 11.8 fL 9.4-12.4 (test code = 754) NUCLEATED RED BLOOD CELLS 0 /100 WBC 0-0 (BEAKER) (test code = 413) NEUTROPHILS RELATIVE PERCENT 53 % (BEAKER) (test code = 429) LYMPHOCYTES RELATIVE PERCENT 32 % (BEAKER) (test code = 430) MONOCYTES RELATIVE PERCENT 7 % (BEAKER) (test code = 431) EOSINOPHILS RELATIVE PERCENT 6 % (BEAKER) (test code = 432) BASOPHILS RELATIVE PERCENT 1 % (BEAKER) (test code = 437) NEUTROPHILS ABSOLUTE COUNT 2.17 K/ L 1.78-5.38 (BEAKER) (test code = 670) LYMPHOCYTES ABSOLUTE COUNT 1.31 K/ L 1.32-3.57 L (BEAKER) (test code = 414) MONOCYTES ABSOLUTE COUNT (BEAKER) 0.29 K/ L 0.30-0.82 L (test code = 415) EOSINOPHILS ABSOLUTE COUNT 0.26 K/ L 0.04-0.54 (BEAKER) (test code = 416) BASOPHILS ABSOLUTE COUNT (BEAKER) 0.03 K/ L 0.01-0.08 (test code = 417) IMMATURE GRANULOCYTES-RELATIVE 1 % 0-1 PERCENT (BEAKER) (test code = 2801) POCT-GLUCOSE [id number] 20:34:00 Test Item Value Reference Range Interpretation Comments POC-GLUCOSE METER 205 mg/dL 70-110 H TESTED AT [facility] 67[address] ([facility]) (test code = [place] 1538) [address] CT, CHEST, WITHOUT [id number] 18:24:00FINAL REPORT TECHNIQUE: CT scan of the [...] Otherwise, no CT follow-up is necessary. Signed: Elli Klein Verified Date/Time: 01/10/2019 18:24:57 Reading Location: [facility] C013Y CT Body Reading Room CT chest without IV contrast 2019-01-10 18:24:00Interface, External Ris In - 01/10/2019 6:27 PM CDTFINAL REPORT TECHNIQUE: CT scan of the chest WITHOUT intravenous contrast. Dose modulation, iterative reconstruction, and/or weight- based adjustment of the mA/kV was utilized to reduce the radiation dose to as low as reasonablyachievable. INDICATION: Chest pain or SOB, pleurisy or effusion suspected. COMPARISON: None. FINDINGS: ABSENCE OF INTRAVENOUS CONTRAST DECREASES SENSITIVITY FOR DETECTION OF FOCAL LESIONS AND VASCULAR PATHOLOGY. LINES/TUBES: None. LUNGS AND AIRWAYS: Bibasilar subsegmental atelectasis. A right middlelobe pulmonary nodule measures 0.3 cm on axial image 29. A calcified granuloma in the right lower lobe measures 0.2 cm. PLEURA: The pleural spaces are clear. HEART AND MEDIASTINUM: The visualized thyroid gland is normal. No significant mediastinal, hilar, or axillary lymphadenopathy. The heart and macho cardium are within normal limits. Marked coronary arterial calcifications. There are likely stents in the left anterior descending coronary artery. SOFT TISSUES AND BONES: Unremarkable. UPPER ABDOMEN: Prior cholecystectomy. 14.8 cm splenomegaly. The liver is likely nodular. IMPRESSION: 1.No acute intrathoracic abnormality. 2.The mild nodularity of the liver is concerning for cirrhosis. Mild splenomegaly. 3.A right middle lobe pulmonary nodule measures 0.3 cm and is indeterminate. If the patient is at increased risk for lung cancer, an optional follow-up chest CT can be obtained in 12 months. Otherwise, no CT follow-up is necessary. Signed: Elli Klein Verified Date/Time: 01/10/2019 18:24:57 Reading Location: [facility] B1 C013Y CT [facility] [id number] 17:31:00 Test Item Value Reference Range Interpretation Comments POC-GLUCOSE METER 183 mg/dL 70-110 H TESTED AT [facility] 6720 ([place]) (test code = [place]) [address] CT, BRAIN, WITHOUT [id number] 14:47:00FINAL REPORT CT, BRAIN, WITHOUT CONTRAST INDICATION: [...] for further thierry acterization. Signed: Lubna Lr [facility] Verified Date/Time: 01/10/2019 14:47:25 CT brain without IV [id number] 14:47:00Interface, External Ris In - 01/10/2019 2:[address], BRAIN, WI THOUT CONTRAST INDICATION: Subdural hemorrhage, follow-up TECHNIQUE: Noncontrast [...] new site of intracranial hemorrhage or abnormal extra- axial collection. No evidence of acute territorial infarct. [...] recommended for further characterization. Signed: Lubna Lr MDRepthe [facility] Verified Date/Time: 01/10/2019 14:47:25 [facility] [id number] 11:36:00 Test Item Value Reference Range Interpretation Comments D-Dimer, Quant (test code 2.14 <0.50 MG/L FEU H = 16191-7) BRENT (test code = BRENT) Intended Use: The D-Dimer Assay can be used to aid in the diagnosis of Deep Vein Thrombosis (DVT) and Pulmonary Embolism Disease (PED).In patients with low pre-test probability, various studies concerning STA Liatest D-dimer test have reported that with a cutoff value of 0.50 MG/L FEU, the Negative Predictive Value (NPV) regarding the exclusion of thrombosis is within 95-100% range. Lab Interpretation (test Abnormal code = 49981-6) [id number] 11:36:00 Test Item Value Reference Range Interpretation Comments D-DIMER QUANTITATIVE (BEAKER) 2.14 MG/L FEU <0.50 H (test code = 671) Intended Use: The D-Dimer Assay can [...] within 95-100% range.RAD, CHEST, 1 VIEW, NON [id number] 08:17:00Reason for exam:->chest painShould this be performed at the bedside?->YesFINAL REPORT Chest, AP view. History: Chest pain. Comparison: 01/06/2019. Discussion: The cardiomediastinal silhouette and pulmonary vasculature are within normal limits. The lungs are clear without evidence of consolidation or effusion. There are no acute osseous abnormalities. The soft tissues are unremarkable. IMPRESSION: No acute cardiopulmonary abnormality. Signed: Britney Montes Verified Date/Time: 01/10/2019 08:17:19 Reading Location: [address] Ortho Consult Reading Room XR chest 1 view portable / [id number] 08:17:00 Interface, External Ris In - 01/10/2019 8:19 AM CDTFINAL REPORT Chest, AP view. History: Chest pain. Comparison: 01/06/2019. Discussion: The cardiomediastinal silhouette and pulmonary vasculature are within normal limits. The lungs are clear without evidence of consolidation or effusion. There are no acute osseous abnormalities. The soft tissues are unremarkable. IMPRESSION: No acute cardiopulmonary abnormality. Signed: Britney Montes Verified Date/Time: 01/10/2019 08:17:19 Reading Location: [facility] C013X [facility]o Consult [facility] 2019-01-10 07:02:00 Test Item Value Reference Range Interpretation Comments Troponin I (test code = 0.02 ng/mL 0-0.03 77434-8) BRENT (test code = BRENT) Troponin I (TnI) levels must be interpreted [...] acidosis, acute neurological disease, and persistent tachyarrhythmia. Lab Interpretation (test Normal code = 37406-5) [facility] [id number] 07:02:00 Test Item Value Reference Range Interpretation Comments TROPONIN I (BEAKER) (test code = 0.02 ng/mL 0.00-0.03 397) Troponin I (TnI) levels must be interpreted [...] failure, acidosis, acute neurological disease, and persistent tachyarrhythmia.B-type Natriuretic Factor (BNP) 2019-01-10 06:59:00 Test Item Value Reference Range Interpretation Comments BNP (test code = 49640-0) 130 pg/mL 0-100 H Lab Interpretation (test code = Abnormal 22025-8) [facility] NAT[facility] FA[facility] (BNP)2019-01-10 06:59:00 Test Item Value Reference Range Interpretation Comments B-TYPE NATRIURETIC PEPTIDE (BEAKER) 130 pg/mL 0-100 H (test code = 700) BASIC METABOLIC [id number] 06:51:00 Test Item Value Reference Range Interpretation Comments SODIUM (BEAKER) 137 meq/L 136-145 (test code = 381) POTASSIUM (BEAKER) 4.3 meq/L 3.5-5.1 (test code = 379) CHLORIDE (BEAKER) 108 meq/L 98-107 H (test code = 382) CO2 (BEAKER) (test 21 meq/L 22-29 L code = 355) BLOOD UREA NITROGEN 34 mg/dL 7-21 H (BEAKER) (test code = 354) CREATININE (BEAKER) 2.00 mg/dL 0.57-1.25 H (test code = 358) GLUCOSE RANDOM 169 mg/dL 70-105 H (BEAKER) (test code = 652) CALCIUM (BEAKER) 8.7 mg/dL 8.4-10.2 (test code = 697) EGFR (BEAKER) (test 35 mL/min/1.73 ESTIMA ESTEE GFR IS code = 1092) sq m NOT ACCURATE CREATININE CLEARANCE IN PREDICTING GLOMERULAR FILTRATION RATE . ESTIMATED GFR I S NOT APPLICABLE FOR DIALYSIS PATIEN TS. CBC W/PLT COUNT & AUTO [id number] 06:27:00 Test Item Value Reference Range Interpretation Comments WHITE BLOOD CELL COUNT (BEAKER) 5.0 K/ L 3.5-10.5 (test code = 775) RED BLOOD CELL COUNT (BEAKER) 3.44 M/ L 4.63-6.08 L (test code = 761) HEMOGLOBIN (BEAKER) (test code = 10.8 GM/DL 13.7-17.5 L 410) HEMATOCRIT (BEAKER) (test code = 31.5 % 40.1-51.0 L 411) MEAN CORPUSCULAR VOLUME (BEAKER) 91.6 fL 79.0-92.2 (test code = 753) MEAN CORPUSCULAR HEMOGLOBIN 31.4 pg 25.7-32.2 (BEAKER) (test code = 751) MEAN CORPUSCULAR HEMOGLOBIN CONC 34.3 GM/DL 32.3-36.5 (BEAKER) (test code = 752) RED CELL DISTRIBUTION WIDTH 13.7 % 11.6-14.4 (BEAKER) (test code = 412) PLATELET COUNT (BEAKER) (test 146 K/CU MM 150-450 L code = 756) MEAN PLATELET VOLUME (BEAKER) 12.1 fL 9.4-12.4 (test code = 754) NUCLEATED RED BLOOD CELLS 0 /100 WBC 0-0 (BEAKER) (test code = 413) NEUTROPHILS RELATIVE PERCENT 48 % (BEAKER) (test code = 429) LYMPHOCYTES RELATIVE PERCENT 37 % (BEAKER) (test code = 430) MONOCYTES RELATIVE PERCENT 8 % (BEAKER) (test code = 431) EOSINOPHILS RELATIVE PERCENT 6 % (BEAKER) (test code = 432) BASOPHILS RELATIVE PERCENT 1 % (BEAKER) (test code = 437) NEUTROPHILS ABSOLUTE COUNT 2.42 K/ L 1.78-5.38 (BEAKER) (test code = 670) LYMPHOCYTES ABSOLUTE COUNT 1.83 K/ L 1.32-3.57 ([facility]) (test code = 414) MONOCYTES ABSOLUTE COUNT (BEAKER) 0.40 K/ L 0.30-0.82 (test code = 415) EOSINOPHILS ABSOLUTE COUNT 0.30 K/ L 0.04-0.54 (BEAKER) (test code = 416) BASOPHILS ABSOLUTE COUNT (BEAKER) 0.04 K/ L 0.01-0.08 (test code = 417) IMMATURE GRANULOCYTES-RELATIVE 0 % 0-1 PERCENT (AKER) (test code = 2801) TROPONIN [id number] 23:52:00 Test Item Value Reference Range Interpretation Comments TROPONIN I ([facility]) (test code = 0.03 ng/mL 0.00-0.03 397) Troponin I (TnI) levels must be interpreted [...] acidosis, acute neurological disease, and persistent tachyarrhythmia.POCT-GLUCOSE [id number] 22:03:00 Test Item Value Reference Range Interpretation Comments POC-GLUCOSE METER 315 mg/dL 70-110 H TESTED AT [place] [address] ([facility]) (test code = [facility] 1538) [address] POCT-GLUCOSE [id number] 20:02:00 Test Item Value Reference Range Interpretation Comments POC-GLUCOSE METER 250 mg/dL 70-110 H TESTED AT [place] [address] ([facility]) (test code = [facility] 1538) [address] TROPONIN [id number] 19:05:00 Test Item Value Reference Range Interpretation Comments TROPONIN I ([facility]) (test code = 0.04 ng/mL 0.00-0.03 H 397) Troponin I (TnI) levels must be interpreted [...] acidosis, acute neurological disease, and persistent tachyarrhythmia.POCT-GLUCOSE [id number] 17:40:00 Test Item Value Reference Range Interpretation Comments POC-GLUCOSE METER 246 mg/dL 70-110 H TESTED AT [facility] 6720 (BEAKER) (test code = [facility] 1538) [address] POCT-GLUCOSE [id number] 08:11:00 Test Item Value Reference Range Interpretation Comments POC-GLUCOSE METER 243 mg/dL 70-110 H TESTED AT [facility] 6720 (BEAKER) (test code = [facility] 1538) [address] BASIC METABOLIC [id number] 05:04:00 Test Item Value Reference Range Interpretation Comments SODIUM (BEAKER) 138 meq/L 136-145 (test code = 381) POTASSIUM (BEAKER) 4.5 meq/L 3.5-5.1 (test code = 379) CHLORIDE (BEAKER) 110 meq/L 98-107 H (test code = 382) CO2 (BEAKER) (test 22 meq/L 22-29 code = 355) BLOOD UREA NITROGEN 34 mg/dL 7-21 H (BEAKER) (test code = 354) CREATININE (BEAKER) 2.01 mg/dL 0.57-1.25 H (test code = 358) GLUCOSE RANDOM 243 mg/dL 70-105 H (BEAKER) (test code = 652) CALCIUM (BEAKER) 8.5 mg/dL 8.4-10.2 (test code = 697) EGFR (BEAKER) (test 35 mL/min/1.73 ESTIMA ESTEE GFR IS code = 1092) sq m NOT ACCURATE CREATININE CLEARANCE IN PREDICTING GLOMERULAR FILTRATION RATE . ESTIMATED GFR I S NOT APPLICABLE FOR DIALYSIS PATIEN TS. [id number] 04:56:00 Test Item Value Reference Range Interpretation Comments PTT (test code = 73261-4) 35.0 22.5- 36.0 seconds Lab Interpretation (test code = Normal 24089-7) [facility] 04:56:00 Test Item Value Reference Range Interpretation Comments PARTIAL THROMBOPLASTIN TIME 35.0 seconds 22.5-36.0 (BEAKER) (test code = 760) CBC W/PLT COUNT & AUTO [id number] 04:48:00 Test Item Value Reference Range Interpretation Comments WHITE BLOOD CELL COUNT (BEAKER) 4.9 K/ L 3.5-10.5 (test code = 775) RED BLOOD CELL COUNT (BEAKER) 3.36 M/ L 4.63-6.08 L (test code = 761) HEMOGLOBIN (BEAKER) (test code = 10.5 GM/DL 13.7-17.5 L 410) HEMATOCRIT (BEAKER) (test code = 30.5 % 40.1-51.0 L 411) MEAN CORPUSCULAR VOLUME (BEAKER) 90.8 fL 79.0-92.2 (test code = 753) MEAN CORPUSCULAR HEMOGLOBIN 31.3 pg 25.7-32.2 (BEAKER) (test code = 751) MEAN CORPUSCULAR HEMOGLOBIN CONC 34.4 GM/DL 32.3-36.5 (BEAKER) (test code = 752) RED CELL DISTRIBUTION WIDTH 13.5 % 11.6-14.4 (BEAKER) (test code = 412) PLATELET COUNT (BEAKER) (test 116 K/CU MM 150-450 L code = 756) MEAN PLATELET VOLUME (BEAKER) 11.9 fL 9.4-12.4 (test code = 754) NUCLEATED RED BLOOD CELLS 0 /100 WBC 0-0 (BEAKER) (test code = 413) NEUTROPHILS RELATIVE PERCENT 52 % (BEAKER) (test code = 429) LYMPHOCYTES RELATIVE PERCENT 36 % (BEAKER) (test code = 430) MONOCYTES RELATIVE PERCENT 8 % (BEAKER) (test code = 431) EOSINOPHILS RELATIVE PERCENT 4 % (BEAKER) (test code = 432) BASOPHILS RELATIVE PERCENT 0 % (BEAKER) (test code = 437) NEUTROPHILS ABSOLUTE COUNT 2.51 K/ L 1.78-5.38 (BEAKER) (test code = 670) LYMPHOCYTES ABSOLUTE COUNT 1.74 K/ L 1.32-3.57 (BEAKER) (test code = 414) MONOCYTES ABSOLUTE COUNT (BEAKER) 0.38 K/ L 0.30-0.82 (test code = 415) EOSINOPHILS ABSOLUTE COUNT 0.18 K/ L 0.04-0.54 (BEAKER) (test code = 416) BASOPHILS ABSOLUTE COUNT (BEAKER) 0.02 K/ L 0.01-0.08 (test code = 417) IMMATURE GRANULOCYTES-RELATIVE 1 % 0-1 PERCENT (BEAKER) (test code = 2801) POCT-GLUCOSE [id number] 22:08:00 Test Item Value Reference Range Interpretation Comments POC-GLUCOSE METER 364 mg/dL 70-110 H Notified R N MD/TESTED (BEAKER) (test code = AT [facility] [address] [facility] [address] POCT-GLUCOSE [id number] 17:05:00 Test Item Value Reference Range Interpretation Comments POC-GLUCOSE METER 389 mg/dL 70-110 H Notified R N MD/TESTED (BEAKER) (test code = [facility] [address] [facility] [address] BASIC METABOLIC [id number] 16:28:00 Test Item Value Reference Range Interpretation Comments SODIUM (BEAKER) 136 meq/L 136-145 (test code = 381) POTASSIUM (BEAKER) 4.7 meq/L 3.5-5.1 (test code = 379) CHLORIDE (BEAKER) 107 meq/L 98-107 (test code = 382) CO2 (BEAKER) (test 23 meq/L 22-29 code = 355) BLOOD UREA NITROGEN 35 mg/dL 7-21 H (BEAKER) (test code = 354) CREATININE (BEAKER) 2.22 mg/dL 0.57-1.25 H (test code = 358) GLUCOSE RANDOM 358 mg/dL 70-105 H (BEAKER) (test code = 652) CALCIUM (BEAKER) 8.7 mg/dL 8.4-10.2 (test code = 697) EGFR (BEAKER) (test 31 mL/min/1.73 ESTIMA ESTEE GFR IS code = 1092) sq m NOT ACCURATE CREATININE CLEARANCE IN PREDICTING GLOMERULAR FILTRATION RATE . ESTIMATED GFR I S NOT APPLICABLE FOR DIALYSIS PATIEN TS. [id number] 16:26:00 Test Item Value Reference Range Interpretation Comments Protime (test code = 13.4 11.9- 14.2 5902-2) seconds INR (test code = 1.1 <=5.9 6301-6) PTT (test code = 32.0 22.5- 36.0 91515-5) seconds BRENT (test code = BRENT) Effective 09/23/2018: PT Reference Range ChangeNew: 11.9-14.2 Previous: 11.7-14.7 RECOMMENDED COUMADIN/WARFARIN INR THERAPY RANGESSTANDARD DOSE: 2.0-3.0 Includes: PROPHYLAXIS for venous thrombosis, systemic embolization; TREATMENT for venous thrombosis and/or pulmonary embolus.HIGH RISK: Target INR is 2.5-3.5 for patients wiht mechanical heart valves. Lab Interpretation Normal (test code = 75059-8) [facility] HospitalPT/[id number] 16:26:00 Test Item Value Reference Range Interpretation Comments PROTIME (BEAKER) (test code = 13.4 seconds 11.9-14.2 759) INR (BEAKER) (test code = 370) 1.1 <=5.9 PARTIAL THROMBOPLASTIN TIME 32.0 seconds 22.5-36.0 (BEAKER) (test code = 760) Effective 09/23/2018: PT Reference Range ChangeNew: 11.9-14.2 Previous: 11.7- 14.7RECOMMENDED COUMADIN/WARFARIN INR THERAPY RANGESSTANDARD DOSE: 2.0-3.0 Includes: PROPHYLAXIS for venous thrombosis, systemic embolization; TREATMENT for venous thrombosis and/or pulmonary embolus.HIGH RISK: Target INR is2.5-3.5 for patients wiht mechanical heart valves.[id number] 16:26:00 Test Item Value Reference Range Interpretation Comments PARTIAL THROMBOPLASTIN TIME 32.0 seconds 22.5-36.0 (BEAKER) (test code = 760) POCT-GLUCOSE [id number] 12:06:00 Test Item Value Reference Range Interpretation Comments POC-GLUCOSE METER 321 mg/dL 70-110 H Notified R Maged BOSS/TESTED (CHASITY) (test code = AT 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 Amount - 2 mlHeight: 67 inches Weight: 102.97 kg (227 lbs) B SA: 2.13 m^2 BMI: 35.55kg/m^2HR: 74 bpm BP: 156/91 mmHg Summary 1. Normal LV size and function. LVEFis 55-60% 2. Diastology: Grade 1 diastolic dysfunction 3. Normal RV size and function 4. No significant valvular heart disease 5. Unable to estimate PASP 6. No pericardial effusion Previous Study No prior studies available for comparison. Signature Findings Left Ventricle The left ventricle is chamber size (by PSLAX dimension) is normal (male -LVIDd 4.2-5.8cm) . Normal LV wall thickness. All of the LV segments contract normally . Global LV systolic function normal . LVEF bySimpson's method of disk assessment is normal (55-60%) . The LVEF was measured using Stallings's bi-plane method of disk . LV endocardium is adequately visualized with IV ultrasound enhancing agent. Grade 1 diastolic dysfunction (impaired relaxation and low-normal LApressure). Left Atrium LA size is mildly enlarged (35-41 ml/m2) . Right Ventricle The right ventricular chamber size and systolic function are within normal li mits. Right Atrium RA cavity size is normal . Aortic Valve Normal AoV structure and function. Mitral Valve Mild MV leaflet thickening. Trace mitral regurgitation. Tricuspid Valve TV structure is normal. Unable to estimate peak systolic PA pressure; inadequate TR velocity signal. Pulmonic Valve Mild pulmonary regurgitation. Normal PV structure and function. Aorta Aortic root size (SInus of Valsalva diameter) is normal . Pericardium No significant pericardial effusion is visualized. IVC/SVC/PA/PV/Pleural The right upper [...] Mean Gradient: 2.09 mmHg LVOT Diameter: 2.07 cm LVOT VTI: 21.15 cm LVOT Area: 3.37 cm^2 LVOT SV:71.14 ml LVOT CO: 5.26 l/min LVOT CI: 2.47 l/min/m^2[facility]PO[facility] [id number] 08:29:00 Test Item Value Reference Range Interpretation Comments POC-GLUCOSE METER 263 mg/dL 70-110 H TESTED AT [facility] 6720 (BEAKER) (test code = [place] 1538) [address] [id number] 04:54:00 Test Item Value Reference Range Interpretation Comments PARTIAL THROMBOPLASTIN TIME 31.0 seconds 22.5-36.0 (BEAKER) (test code = 760) CBC W/PLT COUNT & AUTO [id number] 04:43:00 Test Item Value Reference Range Interpretation Comments WHITE BLOOD CELL COUNT (BEAKER) 6.6 K/ L 3.5-10.5 (test code = 775) RED BLOOD CELL COUNT (BEAKER) 3.45 M/ L 4.63-6.08 L (test code = 761) HEMOGLOBIN (BEAKER) (test code = 10.9 GM/DL 13.7-17.5 L 410) HEMATOCRIT (BEAKER) (test code = 30.8 % 40.1-51.0 L 411) MEAN CORPUSCULAR VOLUME (BEAKER) 89.3 fL 79.0-92.2 (test code = 753) MEAN CORPUSCULAR HEMOGLOBIN 31.6 pg 25.7-32.2 (BEAKER) (test code = 751) MEAN CORPUSCULAR HEMOGLOBIN CONC 35.4 GM/DL 32.3-36.5 (BEAKER) (test code = 752) RED CELL DISTRIBUTION WIDTH 13.5 % 11.6-14.4 (BEAKER) (test code = 412) PLATELET COUNT (BEAKER) (test 138 K/CU MM 150-450 L code = 756) MEAN PLATELET VOLUME (BEAKER) 12.3 fL 9.4-12.4 (test code = 754) NUCLEATED RED BLOOD CELLS 0 /100 WBC 0-0 (BEAKER) (test code = 413) NEUTROPHILS RELATIVE PERCENT 64 % (BEAKER) (test code = 429) LYMPHOCYTES RELATIVE PERCENT 24 % (BEAKER) (test code = 430) MONOCYTES RELATIVE PERCENT 8 % (BEAKER) (test code = 431) EOSINOPHILS RELATIVE PERCENT 3 % (BEAKER) (test code = 432) BASOPHILS RELATIVE PERCENT 1 % (BEAKER) (test code = 437) NEUTROPHILS ABSOLUTE COUNT 4.22 K/ L 1.78-5.38 (BEAKER) (test code = 670) LYMPHOCYTES ABSOLUTE COUNT 1.54 K/ L 1.32-3.57 (BEAKER) (test code = 414) MONOCYTES ABSOLUTE COUNT (BEAKER) 0.53 K/ L 0.30-0.82 (test code = 415) EOSINOPHILS ABSOLUTE COUNT 0.20 K/ L 0.04-0.54 (BEAKER) (test code = 416) BASOPHILS ABSOLUTE COUNT (BEAKER) 0.03 K/ L 0.01-0.08 (test code = 417) IMMATURE GRANULOCYTES-RELATIVE 1 % 0-1 PERCENT (BEAKER) (test code = 2801) POCT-GLUCOSE [id number] 22:11:00 Test Item Value Reference Range Interpretation Comments POC-GLUCOSE METER 319 mg/dL 70-110 H Notified R Maged BOSS/TESTED ([facility]) (test code = AT [place] [address]) [facility] 7[address] 0 [id number] 20:11:00 Test Item Value Reference Range Interpretation Comments PARTIAL THROMBOPLASTIN TIME 33.3 seconds 22.5-36.0 ([facility]) (test code = 760) POCT-GLUCOSE [id number] 18:49:00 Test Item Value Reference Range Interpretation Comments POC-GLUCOSE METER 309 mg/dL 70-110 H TESTED AT [place] [address] ([facility]) (test code = [place] [facility] 1538) [address] POCT-GLUCOSE [id number] 14:48:00 Test Item Value Reference Range Interpretation Comments POC-GLUCOSE METER 161 mg/dL 70-110 H TESTED AT [place] [address] ([facility]) (test code = [place] [facility] 1538) [address] POCT-GLUCOSE [id number] 14:46:00 Test Item Value Reference Range Interpretation Comments POC-GLUCOSE METER 159 mg/dL 70-110 H TESTED AT [place] [address] ([facility]) (test code = [place] [facility] 1538) [address] TROPONIN [id number] 13:58:00 Test Item Value Reference Range Interpretation Comments TROPONIN I ([facility]) (test code = 397) < ng/mL 0.00-0.03 [...] failure, acidosis, acute neurological disease, and persistent tachyarrhythmia.[id number] 12:25:00 Test Item Value Reference Range Interpretation Comments PARTIAL THROMBOPLASTIN TIME 30.3 seconds 22.5-36.0 ([facility]) (test code = 760) POCT-GLUCOSE [id number] 12:18:00 Test Item Value Reference Range Interpretation Comments POC-GLUCOSE METER 168 mg/dL 70-110 H TESTED AT [facility] 67 ([facility]) (test code = [place] [facility] 1538) [address] POCT-GLUCOSE [id number] 11:06:00 Test Item Value Reference Range Interpretation Comments POC-GLUCOSE METER 180 mg/dL 70-110 H TESTED AT [facility] 6720 ([facility]) (test code = [place] 1538) [address] POCT-GLUCOSE [id number] 10:21:00 Test Item Value Reference Range Interpretation Comments POC-GLUCOSE METER 195 mg/dL 70-110 H TESTED AT [facility] 6720 ([facility]) (test code = [place] 1538) [address] POCT-GLUCOSE [id number] 10:21:00 Test Item Value Reference Range Interpretation Comments POC-GLUCOSE METER 180 mg/dL 70-110 H TESTED AT [facility] 6720 ([facility]) (test code = [place] 1538) [address] POCT-GLUCOSE [id number] 08:06:00 Test Item Value Reference Range Interpretation Comments POC-GLUCOSE METER 218 mg/dL 70-110 H TESTED AT [facility] 6720 ([facility]) (test code = [place] 1538) [address] TROPONIN [id number] 07:00:00 Test Item Value Reference Range Interpretation Comments TROPONIN I (BEAKER) (test code = 0.01 ng/mL 0.00-0.03 397) Troponin I (TnI) levels must be interpreted [...] afterwardsOnce on admission and Daily AM afterwardsPOCT-GLUCOSE [id number] 06:58:00 Test Item Value Reference Range Interpretation Comments POC-GLUCOSE METER 248 mg/dL 70-110 H TESTED AT [facility] 6720 (MICHELLAKER) (test code = [place] 1538) [address] [id number] 06:54:00 Test Item Value Reference Range Interpretation Comments Magnesium (test code = 2.2 mg/dL 1.6-2.6 61366-7) BRENT (test code = BRENT) Once on admission and Daily AM afterwardsOnce on admission and Daily AM afterwardsOnce on admission and Daily AM afterwards Lab Interpretation Normal (test code = 20059-0) [facility] 06:54:00 Test Item Value Reference Range Interpretation Comments Phosphorus (test code = 2.5 mg/dL 2.3-4.7 2777-1) BRENT (test code = BRENT) Once on admission and Daily AM afterwardsOnce on admission and Daily AM afterwardsOnce on admission and Daily AM afterwards Lab Interpretation Normal (test code = 90157-0) [facility]2019-09-12 06:54:00 Test Item Value Reference Range Interpretation Comments PHOSPHORUS (BEAKER) (test code = 2.5 mg/dL 2.3-4.7 604) Once on admission and Daily AM afterwardsOnce on admission and Daily AM afterwardsOnce on admission and Daily AM [id number] 06:54:00 Test Item Value Reference Range Interpretation Comments MAGNESIUM (BEAKER) (test code = 2.2 mg/dL 1.6-2.6 627) Once on admission and Daily AM afterwardsOnce on admission and Daily AM afterwardsOnce on admission and Daily AM afterwardsBASIC METABOLIC PANEL 2019-01-07 06:54:00 Test Item Value Reference Range Interpretation Comments SODIUM (BEAKER) 137 meq/L 136-145 (test code = 381) POTASSIUM (BEAKER) 4.4 meq/L 3.5-5.1 (test code = 379) CHLORIDE (BEAKER) 111 meq/L 98-107 H (test code = 382) CO2 (BEAKER) (test 22 meq/L 22-29 code = 355) BLOOD UREA NITROGEN 37 mg/dL 7-21 H (BEAKER) (test code = 354) CREATININE (BEAKER) 1.93 mg/dL 0.57-1.25 H (test code = 358) GLUCOSE RANDOM 253 mg/dL 70-105 H (BEAKER) (test code = 652) CALCIUM (BEAKER) 8.1 mg/dL 8.4-10.2 L (test code = 697) EGFR (BEAKER) (test 37 mL/min/1.73 ESTIMA ESTEE GFR IS code = 1092) sq m NOT ACCURATE CREATININE CLEARANCE IN PREDICTING GLOMERULAR FILTRATION RATE . ESTIMATED GFR I S NOT APPLICABLE FOR DIALYSIS PATIEN TS. Once on admission and Daily AM afterwardsOnce on admission and Daily AM afterwardsOnce on admission and Daily AM afterwardsCBC W/PLT COUNT & AUTO [id number] 06:42:00 Test Item Value Reference Range Interpretation Comments WHITE BLOOD CELL COUNT (BEAKER) 4.8 K/ L 3.5-10.5 (test code = 775) RED BLOOD CELL COUNT (BEAKER) 3.50 M/ L 4.63-6.08 L (test code = 761) HEMOGLOBIN (BEAKER) (test code = 11.0 GM/DL 13.7-17.5 L 410) HEMATOCRIT (BEAKER) (test code = 31.7 % 40.1-51.0 L 411) MEAN CORPUSCULAR VOLUME (BEAKER) 90.6 fL 79.0-92.2 (test code = 753) MEAN CORPUSCULAR HEMOGLOBIN 31.4 pg 25.7-32.2 (BEAKER) (test code = 751) MEAN CORPUSCULAR HEMOGLOBIN CONC 34.7 GM/DL 32.3-36.5 (BEAKER) (test code = 752) RED CELL DISTRIBUTION WIDTH 13.5 % 11.6-14.4 (BEAKER) (test code = 412) PLATELET COUNT (BEAKER) (test 118 K/CU MM 150-450 L code = 756) MEAN PLATELET VOLUME (BEAKER) 12.1 fL 9.4-12.4 (test code = 754) NUCLEATED RED BLOOD CELLS 0 /100 WBC 0-0 (BEAKER) (test code = 413) NEUTROPHILS RELATIVE PERCENT 42 % (BEAKER) (test code = 429) LYMPHOCYTES RELATIVE PERCENT 46 % (BEAKER) (test code = 430) MONOCYTES RELATIVE PERCENT 7 % (BEAKER) (test code = 431) EOSINOPHILS RELATIVE PERCENT 4 % (BEAKER) (test code = 432) BASOPHILS RELATIVE PERCENT 1 % (BEAKER) (test code = 437) NEUTROPHILS ABSOLUTE COUNT 2.00 K/ L 1.78-5.38 (BEAKER) (test code = 670) LYMPHOCYTES ABSOLUTE COUNT 2.22 K/ L 1.32-3.57 (BEAKER) (test code = 414) MONOCYTES ABSOLUTE COUNT (BEAKER) 0.34 K/ L 0.30-0.82 (test code = 415) EOSINOPHILS ABSOLUTE COUNT 0.20 K/ L 0.04-0.54 (BEAKER) (test code = 416) BASOPHILS ABSOLUTE COUNT (BEAKER) 0.04 K/ L 0.01-0.08 (test code = 417) IMMATURE GRANULOCYTES-RELATIVE 1 % 0-1 PERCENT (BEAKER) (test code = 2801) [id number] 06:28:00 Test Item Value Reference Range Interpretation Comments PARTIAL THROMBOPLASTIN TIME 30.6 seconds 22.5-36.0 (BEAKER) (test code = 760) POCT-GLUCOSE [id number] 06:01:00 Test Item Value Reference Range Interpretation Comments POC-GLUCOSE METER 266 mg/dL 70-110 H TESTED AT [facility] ([facility] (test code = [place] 1538) [id number] POCT-GLUCOSE [id number] 04:57:00 Test Item Value Reference Range Interpretation Comments POC-GLUCOSE METER 271 mg/dL 70-110 H TESTED AT [facility] [address] (BEAKER) (test code = [place] 1538) [id number] POCT-GLUCOSE [id number] 04:05:00 Test Item Value Reference Range Interpretation Comments POC-GLUCOSE METER 308 mg/dL 70-110 H Notified Rohith Harrison MD/TESTED ([facility]) (test code = AT [place] [address]) [facility] [id number] 0 POCT-GLUCOSE [id number] 02:57:00 Test Item Value Reference Range Interpretation Comments POC-GLUCOSE METER 343 mg/dL 70-110 H Notified Rohith Harrison MD/TESTED ([facility]) (test code = AT [place] [address]) [place] [id number] 0 RAD, CHEST, 1 VIEW, NON [id number] 02:27:00Reason for exam:->mediastinal wideningShould this be performed [...] tissues and osseous structures are intact. Signed: Emmanuelle Kline [facility] Verified Date/Time: 01/07/2019 02:27:45 POCT-GLUCOSE [id number] 01:57:00 Test Item Value Reference Range Interpretation Comments POC-GLUCOSE METER 369 mg/dL 70-110 H TESTED AT [place] [address] ([facility]) (test code = [place] [address]) [id number] POCT-GLUCOSE [id number] 01:06:00 Test Item Value Reference Range Interpretation Comments POC-GLUCOSE METER 395 mg/dL 70-110 H Notified Rohith Harrison MD/TESTED ([facility]) (test code = AT [place] [address]) [place] [address] 0 TROPONIN [id number] 00:36:00 Test Item Value Reference Range Interpretation Comments TROPONIN I (CHASITY) (test code = 0.01 ng/mL 0.00-0.03 397) Troponin I (TnI) levels must be interpreted [...] 2019-01-07 00:35:00 Test Item Value Reference Range Interpretation Comments B-TYPE NATRIURETIC PEPTIDE ([facility]) 151 pg/mL 0-100 H (test code = 700) [id number] 00:19:00 Test Item Value Reference Range Interpretation Comments PARTIAL THROMBOPLASTIN TIME 28.2 seconds 22.5-36.0 ([facility]) (test code = 760) Prior to initiating heparinPOCT-GLUCOSE [id number] 00:16:00 Test Item Value Reference Range Interpretation Comments POC-GLUCOSE METER 413 mg/dL 70-110 HH TESTED AT [place] [address] ([facility]) (test code = [place] [address]) [address] POCT-GLUCOSE [id number] 23:10:00 Test Item Value Reference Range Interpretation Comments POC-GLUCOSE METER 452 mg/dL 70-110 HH Notified Rohith Harrison MD/TESTED ([facility]) (test code = AT [place] [address]) [facility] [address] POCT-GLUCOSE [id number] 22:06:00 Test Item Value Reference Range Interpretation Comments POC-GLUCOSE METER 383 mg/dL 70-110 H TESTED AT [place] [address] ([facility]) (test code = [place] [address]) [address] CT, BRAIN, WITHOUT [id number] 21:38:00FINAL REPORT CT Head without contrast CLINICAL [...] the examination at time of dictation. Signed: Emmanuelle Kline Verified Date/Time: 01/06/2019 21:38:52 [facility] METABOLIC [id number] 21:12:00 Test Item Value Reference Range Interpretation Comments SODIUM (BEAKER) 134 meq/L 136-145 L (test code = 381) POTASSIUM (BEAKER) 4.9 meq/L 3.5-5.1 Specimen slightly (test code = 379) hemolyzed CHLORIDE (BEAKER) 107 meq/L 98-107 (test code = 382) CO2 (BEAKER) (test 19 meq/L 22-29 L code = 355) BLOOD UREA NITROGEN 36 mg/dL 7-21 H (BEAKER) (test code = 354) CREATININE (BEAKER) 1.95 mg/dL 0.57-1.25 H Specimen slightly (test code = 358) hemolyzed GLUCOSE RANDOM 311 mg/dL 70-105 H (BEAKER) (test code = 652) CALCIUM (BEAKER) 8.5 mg/dL 8.4-10.2 (test code = 697) EGFR (BEAKER) (test 36 mL/min/1.73 ESTIMA ESTEE GFR IS code = 1092) sq m NOT ACCURATE CREATININE CLEARANCE IN PREDICTING GLOMERULAR FILTRATION RATE . ESTIMATED GFR I S NOT APPLICABLE FOR DIALYSIS PATIEN TS. Hemoglobin [id number] 20:17:00 Test Item Value Reference Range Interpretation Comments Hemoglobin A1C (test code = 4548-4) 11.9 % 4.3-6.1 H Lab Interpretation (test code = Abnormal 59030-6) [facility] [id number] 20:17:00 Test Item Value Reference Range Interpretation Comments HEMOGLOBIN A1C (BEAKER) (test code = 11.9 % 4.3-6.1 H 368) TROPONIN [id number] 19:52:00 Test Item Value Reference Range Interpretation Comments TROPONIN I (BEAKER) (test code = [...] failure, acidosis, acute neurological disease, and persistent tachyarrhythmia.Hepatic function [id number] 19:46:00 Test Item Value Reference Range Interpretation Comments Protein, Total (test 6.3 6.0- 8.3 gm/dL Speci men code = 2885-2) slightly hemolyzed Albumin (test code = 2.8 g/dL 3.5-5 [place] [address]-3) slightly hemolyzed Total Bilirubin (test 0.4 mg/dL 0.2-1.2 Specim en code = 1975-2) slightly hemolyzed Bilirubin, Direct 0.1 mg/dL 0.1-0.5 Specimen (test code = 1968-7) slightl y hemolyzed Alkaline Phosphatase 104 U/L 40-150 (test code = 6768-6) AST (test code = 29 U/L 5-34 Specimen 1920-8) slightly hemolyzed ALT (test code = 23 U/L 6-55 Specimen 1742-6) slightly hemolyzed BRENT (test code = BRENT) Specimen moderately lipemic Lab Interpretation Abnormal (test code = 47542-3) [facility] [id number] 19:46:00 Test Item Value Reference Range Interpretation Comments TOTAL PROTEIN (BEAKER) 6.3 gm/dL 6.0-8.3 Speci men slightly (test code = 770) hemolyzed ALBUMIN (BEAKER) (test 2.8 g/dL 3.5-5.0 L Speci men slightly code = 1145) hemolyzed BILIRUBIN TOTAL 0.4 mg/dL 0.2-1.2 Specimen sli ghtly (BEAKER) (test code = hemoly zed 377) BILIRUBIN DIRECT 0.1 mg/dL 0.1-0.5 Specimen sl ightly (BEAKER) (test code = hemoly zed 706) ALKALINE PHOSPHATASE 104 U/L 40-150 (BEAKER) (test code = 346) AST (SGOT) (BEAKER) 29 U/L 5-34 Specimen slightly (test code = 353) hemolyzed ALT (SGPT) (BEAKER) 23 U/L 6-55 Specimen slightly (test code = 347) hemolyzed Specimen moderately [id number] 19:32:00 Test Item Value Reference Range Interpretation Comments PARTIAL THROMBOPLASTIN TIME 28.1 seconds 22.5-36.0 (BEAKER) (test code = 760) Prothrombin time/[id number] 19:31:00 Test Item Value Reference Range Interpretation Comments Protime (test code = 11.4 11.9- 14.2 L 5902-2) seconds INR (test code = 0.9 <=5.9 6301-6) BRENT (test code = BRENT) Effective 09/23/2018: PT Reference Range ChangeNew: 11.9-14.2 Previous: 11.7-14.7 RECOMMENDED COUMADIN/WARFARIN INR THERAPY RANGESSTANDARD DOSE: 2.0-3.0 Includes: PROPHYLAXIS for venous thrombosis, systemic embolization; TREATMENT for venous thrombosis and/or pulmonary embolus.HIGH RISK: Target INR is 2.5-3.5 for patients wiht mechanical heart valves. Lab Interpretation Abnormal (test code = 12759-4) [facility]/[id number] 19:31:00 Test Item Value Reference Range Interpretation Comments PROTIME (BEAKER) (test code = 11.4 seconds 11.9-14.2 L 759) INR (BEAKER) (test code = 370) 0.9 <=5.9 Effective 09/23/2018: PT Reference Range ChangeNew: 11.9-14.2 Previous: 11.7- 14.7RECOMMENDED COUMADIN/WARFARIN INR THERAPY RANGESSTANDARD DOSE: 2.0-3.0 Includes: PROPHYLAXIS for venous thrombosis, systemic embolization; TREATMENT for venous thrombosis and/or pulmonary embolus.HIGH RISK: Target INR is2.5-3.5 for patients wiht mechanical heart valves.CBC W/PLT COUNT & AUTO [id number] 19:25:00 Test Item Value Reference Range Interpretation Comments WHITE BLOOD CELL COUNT (BEAKER) 5.2 K/ L 3.5-10.5 (test code = 775) RED BLOOD CELL COUNT (BEAKER) 3.84 M/ L 4.63-6.08 L (test code = 761) HEMOGLOBIN (BEAKER) (test code = 12.2 GM/DL 13.7-17.5 L 410) HEMATOCRIT (BEAKER) (test code = 34.6 % 40.1-51.0 L 411) MEAN CORPUSCULAR VOLUME (BEAKER) 90.1 fL 79.0-92.2 (test code = 753) MEAN CORPUSCULAR HEMOGLOBIN 31.8 pg 25.7-32.2 (BEAKER) (test code = 751) MEAN CORPUSCULAR HEMOGLOBIN CONC 35.3 GM/DL 32.3-36.5 (BEAKER) (test code = 752) RED CELL DISTRIBUTION WIDTH 13.6 % 11.6-14.4 (BEAKER) (test code = 412) PLATELET COUNT (BEAKER) (test 140 K/CU MM 150-450 L code = 756) MEAN PLATELET VOLUME (BEAKER) 11.8 fL 9.4-12.4 (test code = 754) NUCLEATED RED BLOOD CELLS 0 /100 WBC 0-0 (BEAKER) (test code = 413) NEUTROPHILS RELATIVE PERCENT 54 % (BEAKER) (test code = 429) LYMPHOCYTES RELATIVE PERCENT 36 % (BEAKER) (test code = 430) MONOCYTES RELATIVE PERCENT 5 % (BEAKER) (test code = 431) EOSINOPHILS RELATIVE PERCENT 3 % (BEAKER) (test code = 432) BASOPHILS RELATIVE PERCENT 1 % (BEAKER) (test code = 437) NEUTROPHILS ABSOLUTE COUNT 2.82 K/ L 1.78-5.38 (BEAKER) (test code = 670) LYMPHOCYTES ABSOLUTE COUNT 1.89 K/ L 1.32-3.57 (BEAKER) (test code = 414) MONOCYTES ABSOLUTE COUNT (BEAKER) 0.28 K/ L 0.30-0.82 L (test code = 415) EOSINOPHILS ABSOLUTE COUNT 0.17 K/ L 0.04-0.54 (BEAKER) (test code = 416) BASOPHILS ABSOLUTE COUNT (BEAKER) 0.04 K/ L 0.01-0.08 (test code = 417) IMMATURE GRANULOCYTES-RELATIVE 1 % 0-1 PERCENT (BEAKER) (test code = 2801) POCT-GLUCOSE [id number] 17:51:00 Test Item Value Reference Range Interpretation Comments POC-GLUCOSE METER 342 mg/dL 70-110 H Notified R N /TESTED ([facility]) (test code = AT [facility] [address], [place] [address]) [facility] [address]
[2019-10-14 18:54] LABS: Absolute Lymphocytes (CBC) 1.6 K/uL (0.7-4.9); Basophils % 1.4 % (0-1.3); Hematocrit 41.3 % (39.6-49.0); Lymphocytes % 29.8 % (15.3-44.8); MPV 11.2 fL (7.6-11.3); RBC Red Blood Cell Count 4.36 M/uL (4.33-5.43)
--- NOTE | 2019-10-14 19:10 | RAD REPORT ---
EXAM DESCRIPTION: Noah Single View10/14/2019 6:58 pm CLINICAL HISTORY: Hypertension COMPARISON: July 2019 FINDINGS: The lungs appear clear of acute infiltrate. The heart is normal size. A central venous li ne has its tip in the superior vena cava IMPRESSION: No acute abnormalities displayed
[2019-10-14 19:17] LABS: Arterial Blood Carboxyhemoglob 3.4 % (0-1.5); Blood Gas Oxyhemoglobin 90.2 % (94-97); Blood O2 Saturation 94.2 % (92-98.5)
[2019-10-14 19:21] LABS: ALT/SGPT 64 U/L (12-78); AST/SGOT 36 U/L (15-37); Albumin 2.6 g/dL (3.4-5.0); Alkaline Phosphatase 181 U/L (45-117); BUN Blood Urea Nitrogen 14 mg/dL (7-18); Bicarbonate 29 mmol/L (21-32); Bilirubin Direct 0.1 mg/dL (0-0.2); Bilirubin Total 0.4 mg/dL (0.2-1.0); Glucose Level 184 mg/dL (74-106); Magnesium 1.8 mg/dL (1.8-2.4); NT PRO-BNP 2540 pg/mL (<125); Potassium 3.7 mmol/L (3.5-5.1); Protein, Total 6.8 g/dL (6.4-8.2); Sodium Level 139 mmol/L (136-145); Troponin (Emerg Dept Use Only) < 0.02 ng/mL (0.0-0.045)
--- NOTE | 2019-10-14 19:36 | RAD REPORT ---
EXAM DESCRIPTION: CT - Head Brain Wo Cont - 10/14/2019 6:58 pm CLINICAL HISTORY: Alteration of awareness/confusion COMPARISON: 2019 TECHNIQUE: Computed axial tomography of the head was obtained. IV contrast was not requested. All CT scans are performed using dose optimization technique as appropriate and may include automated exposure control or mA/KV adjustment according to patient size. FINDINGS: An intracranial bleed is not seen . The ventricles are normal in caliber. No extra-axial fluid collection is noted. Mild low-density areas within periventricular, deep and subcortical white matter likely represent is chemic changes secondary to small vessel disease. Fluid within the sinuses/ mastoids is not seen. IMPRESSION: No acute intracranial abnormality is seen. If patient's symptoms persist MRI of the bra in would be recommended.
--- NOTE | 2019-10-14 20:05 | EDPHYS ---
Physician Documentation [facility] Name: Wero Kwong Age: 54 yrs Sex: Male : 1965 Arrival Date: 10/14/2019 Time: 17:17 Bed 14 Private MD: ED Physician Juan Mishra HPI: 10/13 18:21 This 54 yrs old Male presents to ER via EMS with complaints of Altered Mental kdr Status. 18:21 The patient presents with confusion, decreased mental status, decreased responsiveness, kdr disorientation, trouble concentrating. Onset: The symptoms/episode began/occurred gradually, today, Developed while on dialysis. Possible causes: CVA or TIA, low blood sugar, seizure, sepsis. Associated signs and symptoms: The patient has no apparent associated signs or symptoms. Current symptoms: In the emergency department the patient's symptoms are unchanged from the initial presentation. Patient's baseline: Neuro: alert and fully oriented, Motor: no deficits, Ambulation: walks without assistance, Speech: normal, The patient has a previous history of Renal failure. The patient has not experienced similar symptoms in the past. The patient has not recently seen a physician. Historical: - Allergies: 17:19 Codeine; ss 17:19 Hydrocodone-Acetaminophen; ss 17:19 Morphine; ss - PMHx: 17:19 dialysis (); CHF; Cirrhosis; CVA; Diabetes - IDDM; CAD; High Cholesterol; ss Hypertension; kidney failure; Myocardial infarction; Seizures; neuropathy; - PSHx: 17:19 dialysis prot right chest; ss - Immunization history:: Adult Immunizations up to date. - Social history:: Smoking status: Patient/guardian denies using tobacco, but has a distant history of tobacco abuse. ROS: 18:21 Constitutional: Negative for fever, chills, and weight loss, Eyes: Negative for injury, kdr pain, redness, and discharge, Neck: Negative for injury, pain, and swelling, Cardiovascular: Negative for chest pain, palpitations, and edema, Respiratory: Negative for shortness of breath, cough, wheezing, and pleuritic chest pain, Abdomen/GI: Negative for abdominal pain, nausea, vomiting, diarrhea, and constipation, Back: Negative for injury and pain, Skin: Negative for injury, rash, and discoloration, Psych: Negative for depression, anxiety, suicide ideation, homicidal ideation, and hallucinations, Allergy/Immunology: Negative for hives, rash, and allergies. 18:21 MS/extremity: Positive for swelling. Exam: 18:21 Constitutional: This is a well developed, well nourished patient who is awake, alert, kdr and in no acute distress. Head/Face: Normocephalic, atraumatic. Eyes: Pupils equal round and reactive to light, extra-ocular motions intact. Lids and lashes normal. Conjunctiva and sclera are non-icteric and not injected. Cornea within normal limits. Periorbital areas with no swelling, redness, or edema. Neck: Trachea midline, no thyromegaly or masses palpated, and no cervical lymphadenopathy. Supple, full range of motion without nuchal rigidity, or vertebral point tenderness. No Meningismus. Chest/axilla: Normal chest wall appearance and motion. Nontender with no deformity. No lesions are appreciated. Cardiovascular: Regular rate and rhythm with a normal S1 and S2. No gallops, murmurs, or rubs. Normal PMI, no JVD. No pulse deficits. Respiratory: Lungs have equal breath sounds bilaterally, clear to auscultation and percussion. No rales, rhonchi or wheezes noted. No increased work of breathing, no retractions or nasal flaring. Back: No spinal tenderness. No costovertebral tenderness. Full range of motion. Skin: Warm, dry with normal turgor. Normal color with no rashes, no lesions, and no evidence of cellulitis. Psych: Awake, alert, with orientation to person, place and time. Behavior, mood, and affect are within normal limits. 18:21 Musculoskeletal/extremity: Extremities: grossly normal except: The patient has mild bilateral lower extremity swelling - 2/5 pitting edema, ROM: no acute changes, Weight bearing: able to fully bear weight. Vital Signs: 17:17 BP 123 / 61; Pulse 66; Resp 15; Temp 98.3(O); Pulse Ox 97% on R/A; Weight 98.88 kg; ss Height 5 ft. 8 in. (172.72 cm); Pain 0/10; 18:30 BP 142 / 60; Pulse 64; Resp 16; Temp 98.3(O); Pulse Ox 99% on R/A; Pain 0/10; ls4 19:47 BP 144 / 62; Pulse 68; Resp 16; Temp 98.4(O); Pulse Ox 99% on R/A; Pain 0/10; ls4 17:17 Body Mass Index 33.15 (98.88 kg, 172.72 cm) ss MDM: 18:21 Data reviewed: vital signs. kdr 20:04 Patient medically screened. 10/13 18:21 Order name: Basic Metabolic Panel; Complete Time: 19:58 [facility] 10/13 19:59 Interpretation: Normal except: GLUC 184; GFR 35; CRE 2.01. 10/13 18:21 Order name: CBC with Diff; Complete Time: 19:58 [facility] 10/13 19:59 Interpretation: Normal except: MCV 94.8; RDW 15.6; PLT 137; BASO% 1.4. 10/13 18:21 Order name: LFT's; Complete Time: 19:58 [facility] 10/13 19:59 Interpretation: Normal except: A/G 0.6; GLOB 4.2; ALB 2.6; ALK 181. [facility] 10/13 18:21 Order name: Magnesium; Complete Time: 19:59 [facility] 10/13 20:00 Interpretation: Within normal limits: MG 1.8. 10/13 18:21 Order name: NT PRO-BNP; Complete Time: 19:58 [facility] 10/13 19:59 Interpretation: Normal except: NT PRO-BNP 2540. 10/13 18:21 Order name: Troponin (emerg Dept Use Only); Complete Time: 19:59 [facility] 10/13 20:00 Interpretation: Within normal limits: TROPED < 0.02. 10/13 18:21 Order name: XRAY Chest (1 view); Complete Time: 19:59 [facility] 10/13 20:00 Interpretation: No acute disease. 10/13 18:21 Order name: Lactate [facility] 10/13 18:21 Order name: Procalcitonin; Complete Time: 19:59 [facility] 10/13 20:01 Interpretation: Within normal limits: Procalcitonin 0.25. 10/13 18:21 Order name: AMMONIA; Complete Time: 19:58 [facility] 10/13 19:59 Interpretation: Within normal limits: ARIEL 15. 10/13 18:21 Order name: ABG; Complete Time: 19:58 [facility] 10/13 19:59 Interpretation: Normal except: ABGPCO2 47.2; ABGPO2 67.3; ABGHCO3 29.2; PYAL0GK 90.2; tw4 ABGCOHB 3.4. 10/13 18:28 Order name: CT Head Brain wo Cont; Complete Time: 19:59 [facility] 10/13 20:01 Interpretation: No acute disease. tw4 10/13 18:21 Order name: EKG; Complete Time: 18:22 [facility] 10/13 18:21 Order name: Cardiac monitoring; Complete Time: 19:33 kdr 10/13 18:21 Order name: EKG - Nurse/Tech; Complete Time: 19:33 [facility] 10/13 18:21 Order name: IV Saline Lock; Complete Time: 19:33 [facility] 10/13 18:21 Order name: Labs collected and sent; Complete Time: 19:33 [facility] 10/13 18:21 Order name: O2 Per Protocol; Complete Time: 19:33 [facility] 10/13 18:21 Order name: O2 Sat Monitoring; Complete Time: 19:33 [facility] 10/13 18:21 Order name: IV Saline Lock - Large Bore [facility] 10/13 18:21 Order name: Urine Dipstick-Ancillary (obtain specimen) kdr Administered Medications: No medications were administered Disposition: 10/14/19 20:04 Discharged to Home. Impression: Delirium due to known physiological condition. - Condition is Stable. - Discharge Instructions: Confusion, Delirium. - Medication Reconciliation Form, Thank You Letter, Antibiotic Education, Prescription Opioid Use form. - Follow up: Private Physician; When: Upon discharge from the Emergency Department; Reason: Recheck today's complaints, Continuance of care, Re-evaluation by your physician. - Problem is new. - Symptoms have improved. Signatures: Dispatcher [employer] EDMS Juan Mishra MD MD kdr Irene Tse RN RN Milton Johns MD MD tw4 Olga Ramirez RN RN ls4 Blank Fine ar5 Corrections: (The following items were deleted from the chart) 20:33 20:04 10/14/2019 20:04 Discharged to Home. Impression: Delirium due to known ar5 physiological condition. Condition is Stable. Forms are Medication Reconciliation Form, Thank You Letter, Antibiotic Education, Prescription Opioid Use. Follow up: Private Physician; When: Upon discharge from the Emergency Department; Reason: Recheck today's complaints, Continuance of care, Re-evaluation by your physician. Problem is new. Symptoms have improved. tw4
--- NOTE | 2019-10-14 20:05 | ER ---
Nurse's Notes [facility] Name: Wero Kwong Age: 54 yrs Sex: Male : 1965 Arrival Date: 10/14/2019 Time: 17:17 Bed 14 Private MD: Diagnosis: Delirium due to known physiological condition Presentation: 10/13 17:17 Chief complaint: EMS states: completed dialysis session then went home. Family was ss concerned because patient was not himself, very tired and drowsy. Hx of ESRD and liver cirrhosis. PT has no complaints other than he is hungry. Coronavirus screen: Proceed with normal triage. Ebola Screen: Patient denies exposure to infectious person. Patient denies travel to an Ebola-affected area in the 21 days before illness onset. Initial Sepsis Screen: Does the patient meet any 2 criteria? No. Patient's initial sepsis screen is negative. Does the patient have a suspected source of infection? No. Patient's initial sepsis screen is negative. Risk Assessment: Do you want to hurt yourself or someone else? Patient reports no desire to harm self or others. Onset of symptoms was October 14, 2019. 17:17 Method Of Arrival: EMS: [facility] 17:17 Acuity: [place] 3 ss Triage Assessment: 17:18 General: Appears in no apparent distress. comfortable, Behavior is sleeping . Pain: ls4 Denies pain. Neuro: Level of Consciousness is awake, alert, obeys commands, lethargic, Oriented to person, place, time, situation. 17:18 Cardiovascular: Denies chest pain. Respiratory: Denies cough. GI: No signs and/or ls4 symptoms were reported involving the gastrointestinal system. Abdomen is flat. : No deficits noted. No signs and/or symptoms were reported regarding the genitourinary system. Derm: No deficits noted. No signs and/or symptoms reported regarding the dermatologic system. Musculoskeletal: No deficits noted. No signs and/or symptoms reported regarding the musculoskeletal system. Historical: - Allergies: 17:19 Codeine; ss 17:19 Hydrocodone-Acetaminophen; ss 17:19 Morphine; ss - PMHx: 17:19 dialysis (); CHF; Cirrhosis; CVA; Diabetes - IDDM; CAD; High Cholesterol; ss Hypertension; kidney failure; Myocardial infarction; Seizures; neuropathy; - PSHx: 17:19 dialysis prot right chest; ss - Immunization history:: Adult Immunizations up to date. - Social history:: Smoking status: Patient/guardian denies using tobacco, but has a distant history of tobacco abuse. Screenin:52 Abuse screen: Denies threats or abuse. Denies injuries from another. Nutritional ls4 screening: No deficits noted. Tuberculosis screening: No symptoms or risk factors identified. Fall Risk None identified. Assessment: 17:17 General: Appears ill, Behavior is drowsy. ls4 17:17 Pain: Denies pain. Neuro: Level of Consciousness is awake, alert, obeys commands, ls4 Oriented to person, place, time, situation. Respiratory: No deficits noted. GI: No deficits noted. No signs and/or symptoms were reported involving the gastrointestinal system. : No deficits noted. No signs and/or symptoms were reported regarding the genitourinary system. Derm: No deficits noted. No signs and/or symptoms reported regarding the dermatologic system. Musculoskeletal: No deficits noted. No signs and/or symptoms reported regarding the musculoskeletal system. 18:30 Reassessment: Patient and/or family updated on plan of care and expected duration. Pain ls4 level reassessed. Patient is alert, oriented x 3, equal unlabored respirations, skin warm/dry/pink. Patient denies pain at this time. 19:40 Reassessment: Patient appears in no apparent distress at this time. Patient and/or ls4 family updated on plan of care and expected duration. Pain level reassessed. Patient is alert, oriented x 3, equal unlabored respirations, skin warm/dry/pink. Patient denies pain at this time. Patient states feeling better. Patient states symptoms have improved. pt is awake alert and oriented x 4. states he was just tired and wants to go home. states if he is not discharged in 30 minutes he will "rip all this stuff out and leave". 19:40 Cardiovascular: Denies chest pain. ls4 Vital Signs: 17:17 BP 123 / 61; Pulse 66; Resp 15; Temp 98.3(O); Pulse Ox 97% on R/A; Weight 98.88 kg; ss Height 5 ft. 8 in. (172.72 cm); Pain 0/10; 18:30 BP 142 / 60; Pulse 64; Resp 16; Temp 98.3(O); Pulse Ox 99% on R/A; Pain 0/10; ls4 19:47 BP 144 / 62; Pulse 68; Resp 16; Temp 98.4(O); Pulse Ox 99% on R/A; Pain 0/10; ls4 17:17 Body Mass Index 33.15 (98.88 kg, 172.72 cm) ED Course: 17:17 Patient arrived in ED. ss 17:19 Triage completed. ss 17:19 Arm band placed on right wrist. ss 17:21 Olga Ramirez, RN is Primary Nurse. ls4 17:30 Juan Mishra MD is Attending Physician. kdr 17:52 No apparent distress. Awaiting ED provider evaluation. ls4 17:52 Patient has correct armband on for positive identification. Bed in low position. Call ls4 light in reach. Side rails up X 1. color television console monitor on. Pulse ox on. NIBP on. Warm blanket given. Verbal reassurance given. 17:52 No provider procedures requiring assistance completed. ls4 18:30 Initial lab(s) drawn, by co, sent to lab. Inserted saline lock: 18 gauge in right ls4 antecubital area, using aseptic technique. Blood collected. 18:58 XRAY Chest (1 view) In Process Unspecified. EDMS 18:58 CT Head Brain wo Cont In Process Unspecified. EDMS Administered Medications: No medications were administered Outcome: 20:04 Discharge ordered by . tw4 20:33 Patient left the ED. ar5 Signatures: Dispatcher [employer] EDMS Juan Mishra MD MD [facility] Irene Tse RN RN Milton Mims MD MD [facility] Olga Ramirez, HAYLEE RN 4 Blank Fine ar5
[2019-10-14 20:49] VITALS: O2SAT 99
[2019-10-14 20:50] VITALS: BP 144/62; TEMP 98.4
--- NOTE | 2019-10-15 06:38 | EKG ---
Test Date: 2019-10-14 Test Time: 19:09:46 Editorial Specialist: CHEIKH MEASUREMENT RESULTS: Intervals: Rate: 66 PA: 142 QRSD: 136 QT: 462 QTc: 484 [place]: P: 24 PA: 142 QRS: 96 T: 38 INTERPRETIVE STATEMENTS: Normal sinus rhythm Right bundle branch block Abnormal ECG Compared to ECG 08/01/2019 20:36:01 Sinus bradycardia no longer present Electronically Signed On 10-15-19 06:37:35 CDT by Zion Colon
== END 2019-10-14 20:33 | disposition home or self-care (01) ==
LOC: ER 17:16
DX: F05 Delirium due to known physiological condition (principal); N18.6 End stage renal disease; Z99.2 Dependence on renal dialysis; I12.0 Hypertensive chronic kidney disease with stage 5 chronic kidney disease or end stage renal disease
CPT/HCPCS: 36415; 70450; 71045; 80048; 80076; 82140; 82805; 83605; 83735; 83880; 84145; 84484; 85025; 93005; 99284

== ENCOUNTER 2019-11-21 05:55 | Emergency (ER) | payer OTHER ==
--- OUTSIDE RECORDS SUMMARY | 2019-11-21 06:05 | XMS REPORT | Clinical Summary ---
:1965 Author Organization [facility] Address [address] [place] [address] Care Team Providers Name Role Phone Ceci [...] as needed. gabapentin Take 1,800 mg 0 /20/20 Disco ntinued (NEURONTIN) 300 mg by mouth every 20 (Stop Taking at capsule morning. Discharge) atenolol (TENORMIN) Take 50 mg by 0 20/ 20 Discontinued 50 MG tablet mouth daily. 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 POC GLUCOSE Routine 07/05/2019 [...] Routine 07/03/2019 9:52 Results for this PM ACCOUNTS PAYABLE LEAD procedure are i n the results section. POC GLUCOSE Routine 07/03/2019 4:16 Results for this PM [employer]S PAYABLE LEAD procedure are i n the results section. POC GLUCOSE Routine 07/03/2019 12:31 Results for this PM [employer]OUNTS PAYABLE LEAD procedure are i n the results section. POC GLUCOSE Routine 07/03/2019 11:50 Results for this AM ACCOUNTS PAYABLE LEAD procedure are i n the results section. POC GLUCOSE Routine 07/03/2019 7:48 Results for this AM ACCOUNTS PAYABLE LEAD procedure are i n the results section. ESTIMATED GFR Routine 07/03/2019 4:00 Results fo r this AM [employer]S PAYABLE LEAD procedure are i n the results section. VANCOMYCIN LEVEL, RANDOM Routine 07/03/2019 4:00 Results for this AM ACC[employer]S PAYABLE LEAD procedure are i n the results section. PHOSPHORUS LEVEL Routine 07/03/2019 4:00 Results for this AM ACCOUNTS PAYABLE LEAD procedure are i n the results section. MAGNESIUM LEVEL Routine 07/03/2019 4:00 Results for this AM ACCOUNTS PAYABLE LEAD procedure are i n the results section. BASIC METABOLIC PANEL Routine 07/03/2019 4:00 Re sults for this AM [employer]S PAYABLE LEAD procedure are i n the results section. POC GLUCOSE Routine 07/02/2019 9:29 Results for this PM [employer]S PAYABLE LEAD procedure are i n the results section. POC GLUCOSE Routine 07/02/2019 6:48 Results for this PM [employer]S PAYABLE LEAD procedure are i n the results section. ESTIMATED GFR Routine 07/02/2019 4:05 Results fo r this PM [employer]OUNTS PAYABLE LEAD procedure are i n the results section. BASIC METABOLIC PANEL Routine 07/02/2019 4:05 Re sults for this PM [employer]S PAYABLE LEAD procedure are i n the results section. POC GLUCOSE Routine 07/02/2019 4:03 Results for this PM [employer]S PAYABLE LEAD procedure are i n the results section. VENIPUNC NEED PHYS Routine 07/02/2019 2:59 Resul ts for this SKILL,DX OR RX PM [employer]S PAYABLE LEAD procedure are in the results section. POC GLUCOSE Routine 07/02/2019 11:52 Results for this AM [employer] PAYABLE LEAD procedure are i n the results section. POC GLUCOSE Routine 07/02/2019 8:44 Results for this AM [employer]OUNTS PAYABLE LEAD procedure are i n the results section. ESTIMATED GFR Routine 07/02/2019 4:00 Results fo r this AM ACCOUNTS PAYABLE LEAD procedure are i n the results section. PHOSPHORUS LEVEL Routine 07/02/2019 4:00 Results for this AM ACC[employer]S PAYABLE LEAD procedure are i n the results section. MAGNESIUM LEVEL Routine 07/02/2019 4:00 Results for this AM ACCOUNTS PAYABLE LEAD procedure are i n the results section. BASIC METABOLIC PANEL Routine 07/02/2019 4:00 Re sults for this AM ACC[employer]S PAYABLE LEAD procedure are i n the results section. VANCOMYCIN LEVEL, RANDOM Routine 07/02/2019 4:00 Results for this AM [employer]S PAYABLE LEAD procedure are i n the results section. POC GLUCOSE Routine 07/01/2019 9:39 Results for this PM [employer]S PAYABLE LEAD procedure are i n the results section. POC GLUCOSE Routine 07/01/2019 5:04 Results for this PM [employer]S PAYABLE LEAD procedure are i n the results section. VANCOMYCIN LEVEL, TROUGH Timed 07/01/2019 2:30 Results for this PM [employer] PAYABLE LEAD procedure are i n the results section. POC GLUCOSE Routine 07/01/2019 12:20 Results for this PM [employer]S PAYABLE LEAD procedure are i n the results section. POC GLUCOSE Routine 07/01/2019 8:33 Results for this AM [employer]S PAYABLE LEAD procedure are i n the results section. POC GLUCOSE Routine 07/01/2019 4:13 Results for this AM ACCOUNTS PAYABLE LEAD procedure are i n the results section. ESTIMATED GFR Routine 07/01/2019 4:00 Results fo r this AM ACCOUNTS PAYABLE LEAD procedure are i n the results section. HEPATIC FUNCTION PANEL Routine 07/01/2019 4:00 R esults for this AM [employer]S PAYABLE LEAD procedure are i n the results section. PHOSPHORUS LEVEL Routine 07/01/2019 4:00 Results for this AM ACCOUNTS PAYABLE LEAD procedure are i n the results section. MAGNESIUM LEVEL Routine 07/01/2019 4:00 Results for this AM ACCOUNTS PAYABLE LEAD procedure are i n the results section. BASIC METABOLIC PANEL Routine 07/01/2019 4:00 Re sults for this AM ACCOUNTS PAYABLE LEAD procedure are i n the results section. POC GLUCOSE Routine 06/30/2019 11:36 Results for this PM ACCOUNTS PAYABLE LEAD procedure are i n the results section. POC GLUCOSE Routine 06/30/2019 9:09 Results for this PM ACCOUNTS PAYABLE LEAD procedure are i n the results section. POC GLUCOSE Routine 06/30/2019 5:15 Results for this PM [employer]OUNTS PAYABLE LEAD procedure are i n the results section. POC GLUCOSE Routine 06/30/2019 2:40 Results for this PM [employer]OUNTS PAYABLE LEAD procedure are i n the results section. POC GLUCOSE Routine 06/30/2019 11:58 Results for this AM ACC[employer]S PAYABLE LEAD procedure are i n the results section. SURGICAL PATHOLOGY Routine 06/30/2019 11:36 Resul ts for this REQUEST AM ACC[employer]S PAYABLE LEAD procedure are i n the results section. POC GLUCOSE Routine 06/30/2019 10:00 Results for this AM [employer]S PAYABLE LEAD procedure are i n the results section. IR TRANSJUGULAR LIVER Routine 06/30/2019 9:39 Re sults for this BIOPSY AM ACCOUNTS PAYABLE LEAD procedure are i n the results section. ESTIMATED GFR Routine 06/30/2019 4:03 Results fo r this AM ACCOUNTS PAYABLE LEAD procedure are i n the results section. VANCOMYCIN LEVEL, RANDOM Routine 06/30/2019 4:03 Results for this AM ACCOUNTS PAYABLE LEAD procedure are i n the results section. HEPATIC FUNCTION PANEL Routine 06/30/2019 4:03 R esults for this AM ACCOUNTS PAYABLE LEAD procedure are i n the results section. PHOSPHORUS LEVEL Routine 06/30/2019 4:03 Results for this AM ACCOUNTS PAYABLE LEAD procedure are i n the results section. MAGNESIUM LEVEL Routine 06/30/2019 4:03 Results for this AM ACCOUNTS PAYABLE LEAD procedure are i n the results section. BASIC METABOLIC PANEL Routine 06/30/2019 4:03 Re sults for this AM ACCOUNTS PAYABLE LEAD procedure are i n the results section. POC GLUCOSE Routine 06/29/2019 9:21 Results for this PM [employer]OUNTS PAYABLE LEAD procedure are i n the results section. POC GLUCOSE Routine 06/29/2019 4:06 Results for this PM ACCOUNTS PAYABLE LEAD procedure are i n the results section. POC GLUCOSE Routine 06/29/2019 12:30 Results for this PM [employer]S PAYABLE LEAD procedure are i n the results section. POC GLUCOSE Routine 06/29/2019 8:25 Results for this AM ACCOUNTS PAYABLE LEAD procedure are i n the results section. ESTIMATED GFR Routine 06/29/2019 4:54 Results fo r this AM ACCOUNTS PAYABLE LEAD procedure are i n the results section. HEPATIC FUNCTION PANEL Routine 06/29/2019 4:54 R esults for this AM ACCOUNTS PAYABLE LEAD procedure are i n the results section. VANCOMYCIN LEVEL, RANDOM Routine 06/29/2019 4:54 Results for this AM ACCOUNTS PAYABLE LEAD procedure are i n the results section. HC COMPLETE BLD COUNT Routine 06/29/2019 4:54 Re sults for this W/AUTO DIFF AM ACCOUNTS PAYABLE LEAD procedure are i n the results section. PHOSPHORUS LEVEL Routine 06/29/2019 4:54 Results for this AM ACCOUNTS PAYABLE LEAD procedure are i n the results section. MAGNESIUM LEVEL Routine 06/29/2019 4:54 Results for this AM ACCOUNTS PAYABLE LEAD procedure are i n the results section. BASIC METABOLIC PANEL Routine 06/29/2019 4:54 Re sults for this AM ACCOUNTS PAYABLE LEAD procedure are i n the results section. POC GLUCOSE Routine 06/28/2019 8:33 Results for this PM ACCOUNTS PAYABLE LEAD procedure are i n the results section. POC GLUCOSE Routine 06/28/2019 4:06 Results for this PM ACCOUNTS PAYABLE LEAD procedure are i n the results section. POC GLUCOSE Routine 06/28/2019 12:29 Results for this PM ACCOUNTS PAYABLE LEAD procedure are i n the results section. HEPATIC FUNCTION PANEL Routine 06/28/2019 12:23 R esults for this PM ACCOUNTS PAYABLE LEAD procedure are i n the results section. ECG 12-LEAD STAT 06/28/2019 9:41 Results for this AM ACCOUNTS PAYABLE LEAD procedure are i n the results section. POC GLUCOSE Routine 06/28/2019 9:14 Results for this AM ACCOUNTS PAYABLE LEAD procedure are i n the results section. HEPATIC FUNCTION PANEL Timed 06/28/2019 9:13 R esults for this AM ACCOUNTS PAYABLE LEAD procedure are i n the results section. TROPONIN Timed 06/28/2019 9:13 Results for this AM ACCOUNTS PAYABLE LEAD procedure are i n the results section. ESTIMATED GFR Routine 06/28/2019 5:22 Results fo r this AM ACCOUNTS PAYABLE LEAD procedure are i n the results section. VANCOMYCIN LEVEL, RANDOM Routine 06/28/2019 5:22 Results for this AM ACCOUNTS PAYABLE LEAD procedure are i n the results section. PHOSPHORUS LEVEL Routine 06/28/2019 5:22 Results for this AM ACCOUNTS PAYABLE LEAD procedure are i n the results section. MAGNESIUM LEVEL Routine 06/28/2019 5:22 Results for this AM ACCOUNTS PAYABLE LEAD procedure are i n the results section. BASIC METABOLIC PANEL Routine 06/28/2019 5:22 Re sults for this AM ACCOUNTS PAYABLE LEAD procedure are i n the results section. POC GLUCOSE Routine 06/27/2019 9:03 Results for this PM ACCOUNTS PAYABLE LEAD procedure are i n the results section. POC GLUCOSE Routine 06/27/2019 5:04 Results for this PM ACCOUNTS PAYABLE LEAD procedure are i n the results section. POC GLUCOSE Routine 06/27/2019 2:07 Results for this PM ACCOUNTS PAYABLE LEAD procedure are i n the results section. POC GLUCOSE Routine 06/27/2019 11:57 Results for this AM ACCOUNTS PAYABLE LEAD procedure are i n the results section. POC GLUCOSE Routine 06/27/2019 8:26 Results for this AM ACCOUNTS PAYABLE LEAD procedure are i n the results section. ECG 12-LEAD Routine 06/27/2019 8:13 Results for this AM ACCOUNTS PAYABLE LEAD procedure are i n the results section. ESTIMATED GFR Routine 06/27/2019 5:14 Results fo r this AM ACCOUNTS PAYABLE LEAD procedure are i n the results section. VANCOMYCIN LEVEL, RANDOM Routine 06/27/2019 5:14 Results for this AM ACCOUNTS PAYABLE LEAD procedure are i n the results section. PHOSPHORUS LEVEL Routine 06/27/2019 5:14 Results for this AM ACCOUNTS PAYABLE LEAD procedure are i n the results section. MAGNESIUM LEVEL Routine 06/27/2019 5:14 Results for this AM ACCOUNTS PAYABLE LEAD procedure are i n the results section. BASIC METABOLIC PANEL Routine 06/27/2019 5:14 Re sults for this AM ACCOUNTS PAYABLE LEAD procedure are i n the results section. POC GLUCOSE Routine 06/26/2019 9:21 Results for this PM [employer]OUNTS PAYABLE LEAD procedure are i n the results section. POC GLUCOSE Routine 06/26/2019 7:41 Results for this PM ACCOUNTS PAYABLE LEAD procedure are i n the results section. POC GLUCOSE Routine 06/26/2019 7:12 Results for this PM [employer]OUNTS PAYABLE LEAD procedure are i n the results section. ULTRAFILTRATION Routine 06/26/2019 1:39 PM ACCOUNTS PAYABLE LEAD POC GLUCOSE Routine 06/26/2019 12:05 Results for this PM [employer]OUNTS PAYABLE LEAD procedure are i n the results section. POC GLUCOSE Routine 06/26/2019 8:54 Results for this AM ACCOUNTS PAYABLE LEAD procedure are i n the results section. ESTIMATED GFR Routine 06/26/2019 6:25 Results fo r this AM ACCOUNTS PAYABLE LEAD procedure are i n the results section. VANCOMYCIN LEVEL, RANDOM Routine 06/26/2019 6:25 Results for this AM ACCOUNTS PAYABLE LEAD procedure are i n the results section. HC COMPLETE BLD COUNT Routine 06/26/2019 6:25 Re sults for this W/AUTO DIFF AM ACCOUNTS PAYABLE LEAD procedure are i n the results section. PHOSPHORUS LEVEL Routine 06/26/2019 6:25 Results for this AM ACCOUNTS PAYABLE LEAD procedure are i n the results section. MAGNESIUM LEVEL Routine 06/26/2019 6:25 Results for this AM ACCOUNTS PAYABLE LEAD procedure are i n the results section. BASIC METABOLIC PANEL Routine 06/26/2019 6:25 Re sults for this AM ACCOUNTS PAYABLE LEAD procedure are i n the results section. POC GLUCOSE Routine 06/25/2019 11:39 Results for this PM [employer]OUNTS PAYABLE LEAD procedure are i n the results section. HEMODIALYSIS Routine 06/25/2019 9:44 PM ACCOUNTS PAYABLE LEAD POC GLUCOSE Routine 06/25/2019 9:14 Results for this PM ACCOUNTS PAYABLE LEAD procedure are i n the results section. ESTIMATED GFR Routine 06/25/2019 6:45 Results fo r this PM ACCOUNTS PAYABLE LEAD procedure are i n the results section. PHOSPHORUS LEVEL Routine 06/25/2019 6:45 Results for this PM ACCOUNTS PAYABLE LEAD procedure are i n the results section. BASIC METABOLIC PANEL Routine 06/25/2019 6:45 Re sults for this PM ACCOUNTS PAYABLE LEAD procedure are i n the results section. POC GLUCOSE Routine 06/25/2019 3:45 Results for this PM ACCOUNTS PAYABLE LEAD procedure are i n the results section. POC GLUCOSE Routine 06/25/2019 11:30 Results for this AM ACCOUNTS PAYABLE LEAD procedure are i n the results section. POC GLUCOSE Routine 06/25/2019 7:47 Results for this AM ACCOUNTS PAYABLE LEAD procedure are i n the results section. POC GLUCOSE Routine 06/25/2019 12:05 Results for this AM ACCOUNTS PAYABLE LEAD procedure are i n the results section. POC GLUCOSE Routine 06/24/2019 9:12 Results for this PM ACCOUNTS PAYABLE LEAD procedure are i n the results section. POC GLUCOSE Routine 06/24/2019 4:22 Results for this PM ACCOUNTS PAYABLE LEAD procedure are i n the results section. POC GLUCOSE Routine 06/24/2019 1:17 Results for this PM [employer]OUNTS PAYABLE LEAD procedure are i n the results section. HEMODIALYSIS Routine 06/24/2019 11:11 AM ACCOUNTS PAYABLE LEAD POC GLUCOSE Routine 06/24/2019 7:35 Results for this AM ACCOUNTS PAYABLE LEAD procedure are i n the results section. ESTIMATED GFR Routine 06/24/2019 4:00 Results fo r this AM ACCOUNTS PAYABLE LEAD procedure are i n the results section. HC COMPLETE BLD COUNT Routine 06/24/2019 4:00 Re sults for this W/AUTO DIFF AM ACCOUNTS PAYABLE LEAD procedure are i n the results section. HEPATIC FUNCTION PANEL Routine 06/24/2019 4:00 R esults for this AM ACCOUNTS PAYABLE LEAD procedure are i n the results section. PHOSPHORUS LEVEL Routine 06/24/2019 4:00 Results for this AM ACCOUNTS PAYABLE LEAD procedure are i n the results section. MAGNESIUM LEVEL Routine 06/24/2019 4:00 Results for this AM ACCOUNTS PAYABLE LEAD procedure are i n the results section. BASIC METABOLIC PANEL Routine 06/24/2019 4:00 Re sults for this AM ACCOUNTS PAYABLE LEAD procedure are i n the results section. POC GLUCOSE Routine 06/23/2019 6:00 Results for this PM [employer]OUNTS PAYABLE LEAD procedure are i n the results section. HEMODIALYSIS Routine 06/23/2019 12:21 PM ACCOUNTS PAYABLE LEAD POC GLUCOSE Routine 06/23/2019 11:18 Results for this AM ACCOUNTS PAYABLE LEAD procedure are i n the results section. IR TUNNELED DIALYSIS Routine 06/23/2019 10:03 Res ults for this CATHETER PLACEMENT AM ACCOUNTS PAYABLE LEAD procedure are in the results section. POC GLUCOSE Routine 06/23/2019 9:54 Results for this AM ACCOUNTS PAYABLE LEAD procedure are i n the results section. POC GLUCOSE Routine 06/23/2019 8:19 Results for this AM ACCOUNTS PAYABLE LEAD procedure are i n the results section. ESTIMATED GFR Routine 06/23/2019 5:30 Results fo r this AM ACCOUNTS PAYABLE LEAD procedure are i n the results section. HC COMPLETE BLD COUNT Routine 06/23/2019 5:30 Re sults for this W/AUTO DIFF AM ACCOUNTS PAYABLE LEAD procedure are i n the results section. HEPATIC FUNCTION PANEL Routine 06/23/2019 5:30 R esults for this AM ACCOUNTS PAYABLE LEAD procedure are i n the results section. PHOSPHORUS LEVEL Routine 06/23/2019 5:30 Results for this AM ACCOUNTS PAYABLE LEAD procedure are i n the results section. MAGNESIUM LEVEL Routine 06/23/2019 5:30 Results for this AM ACCOUNTS PAYABLE LEAD procedure are i n the results section. BASIC METABOLIC PANEL Routine 06/23/2019 5:30 Re sults for this AM ACCOUNTS PAYABLE LEAD procedure are i n the results section. POC GLUCOSE Routine 06/22/2019 9:30 Results for this PM [employer]OUNTS PAYABLE LEAD procedure are i n the results section. POC GLUCOSE Routine 06/22/2019 12:28 Results for this PM ACCOUNTS PAYABLE LEAD procedure are i n the results section. POC GLUCOSE Routine 06/22/2019 8:38 Results for this AM ACCOUNTS PAYABLE LEAD procedure are i n the results section. ESTIMATED GFR Routine 06/22/2019 4:30 Results fo r this AM ACCOUNTS PAYABLE LEAD procedure are i n the results section. HEPATIC FUNCTION PANEL Routine 06/22/2019 4:30 R esults for this AM ACCOUNTS PAYABLE LEAD procedure are i n the results section. HC COMPLETE BLD COUNT Routine 06/22/2019 4:30 Re sults for this W/AUTO DIFF AM [employer]OUNTS PAYABLE LEAD procedure are i n the results section. PHOSPHORUS LEVEL Routine 06/22/2019 4:30 Results for this AM ACCOUNTS PAYABLE LEAD procedure are i n the results section. MAGNESIUM LEVEL Routine 06/22/2019 4:30 Results for this AM ACCOUNTS PAYABLE LEAD procedure are i n the results section. BASIC METABOLIC PANEL Routine 06/22/2019 4:30 Re sults for this AM ACCOUNTS PAYABLE LEAD procedure are i n the results section. POC GLUCOSE Routine 06/22/2019 12:07 Results for this AM [employer]OUNTS PAYABLE LEAD procedure are i n the results section. POC GLUCOSE Routine 06/21/2019 9:03 Results for this PM [employer]OUNTS PAYABLE LEAD procedure are i n the results section. POC GLUCOSE Routine 06/21/2019 7:26 Results for this PM [employer]OUNTS PAYABLE LEAD procedure are i n the results section. POC GLUCOSE Routine 06/21/2019 4:33 Results for this PM [employer]OUNTS PAYABLE LEAD procedure are i n the results section. XR ABDOMEN 1 VW PORTABLE Routine 06/21/2019 4:08 Results for this PM [employer] PAYABLE LEAD procedure are i n the results section. POC GLUCOSE Routine 06/21/2019 11:46 Results for this AM [employer]S PAYABLE LEAD procedure are i n the results section. POC GLUCOSE Routine 06/21/2019 8:15 Results for this AM ACCOUNTS PAYABLE LEAD procedure are i n the results section. ESTIMATED GFR Routine 06/21/2019 4:00 Results fo r this AM ACCOUNTS PAYABLE LEAD procedure are i n the results section. PHOSPHORUS LEVEL Routine 06/21/2019 4:00 Results for this AM ACCOUNTS PAYABLE LEAD procedure are i n the results section. MAGNESIUM LEVEL Routine 06/21/2019 4:00 Results for this AM ACCOUNTS PAYABLE LEAD procedure are i n the results section. BASIC METABOLIC PANEL Routine 06/21/2019 4:00 Re sults for this AM [employer]OUNTS PAYABLE LEAD procedure are i n the results section. POC GLUCOSE Routine 06/20/2019 9:33 Results for this PM [employer]OUNTS PAYABLE LEAD procedure are i n the results section. GRAM STAIN Routine 06/20/2019 5:32 Results for this PM [employer]S PAYABLE LEAD procedure are i n the results section. AEROBIC CULTURE Routine 06/20/2019 5:32 Results for this PM [employer]S PAYABLE LEAD procedure are i n the results section. POC GLUCOSE Routine 06/20/2019 3:51 Results for this PM [employer]OUNTS PAYABLE LEAD procedure are i n the results section. POC GLUCOSE Routine 06/20/2019 12:25 Results for this PM ACCOUNTS PAYABLE LEAD procedure are i n the results section. POC GLUCOSE Routine 06/20/2019 7:34 Results for this AM ACCOUNTS PAYABLE LEAD procedure are i n the results section. ESTIMATED GFR Routine 06/20/2019 4:00 Results fo r this AM ACCOUNTS PAYABLE LEAD procedure are i n the results section. PHOSPHORUS LEVEL Routine 06/20/2019 4:00 Results for this AM ACCOUNTS PAYABLE LEAD procedure are i n the results section. MAGNESIUM LEVEL Routine 06/20/2019 4:00 Results for this AM ACCOUNTS PAYABLE LEAD procedure are i n the results section. BASIC METABOLIC PANEL Routine 06/20/2019 4:00 Re sults for this AM [employer]OUNTS PAYABLE LEAD procedure are i n the results section. HEPATIC FUNCTION PANEL Routine 06/20/2019 4:00 R esults for this AM [employer]S PAYABLE LEAD procedure are i n the results section. POC GLUCOSE Routine 06/19/2019 9:31 Results for this PM [employer]OUNTS PAYABLE LEAD procedure are i n the results section. PROTEIN, URINE, RANDOM Routine 06/19/2019 7:06 R esults for this PM [employer]OUNTS PAYABLE LEAD procedure are i n the results section. CREATININE LEVEL, URINE, Routine 06/19/2019 7:06 Results for this RANDOM PM [employer]OUNTS PAYABLE LEAD procedure are i n the results section. POC GLUCOSE Routine 06/19/2019 4:08 Results for this PM ACCOUNTS PAYABLE LEAD procedure are i n the results section. POC GLUCOSE Routine 06/19/2019 12:34 Results for this PM ACCOUNTS PAYABLE LEAD procedure are i n the results section. POC GLUCOSE Routine 06/19/2019 7:42 Results for this AM ACCOUNTS PAYABLE LEAD procedure are i n the results section. ESTIMATED GFR Routine 06/19/2019 12:00 Results fo r this AM ACCOUNTS PAYABLE LEAD procedure are i n the results section. PHOSPHORUS LEVEL Routine 06/19/2019 12:00 Results for this AM ACCOUNTS PAYABLE LEAD procedure are i n the results section. MAGNESIUM LEVEL Routine 06/19/2019 12:00 Results for this AM ACCOUNTS PAYABLE LEAD procedure are i n the results section. BASIC METABOLIC PANEL Routine 06/19/2019 12:00 Re sults for this AM ACCOUNTS PAYABLE LEAD procedure are i n the results section. HEPATIC FUNCTION PANEL Routine 06/19/2019 12:00 R esults for this AM [employer]S PAYABLE LEAD procedure are i n the results section. ANTI MITOCHONDRIA SCREEN Routine 06/19/2019 12:00 Results for this AM [employer]S PAYABLE LEAD procedure are i n the results section. ANTI SMOOTH MUSCLE AB Routine 06/19/2019 12:00 Re sults for this SCREEN AM [employer] PAYABLE LEAD procedure are i n the results section. POC GLUCOSE Routine 06/18/2019 9:10 Results for this PM [employer]OUNTS PAYABLE LEAD procedure are i n the results section. POC GLUCOSE Routine 06/18/2019 4:07 Results for this PM ACCOUNTS PAYABLE LEAD procedure are i n the results section. POC GLUCOSE Routine 06/18/2019 11:14 Results for this AM ACCOUNTS PAYABLE LEAD procedure are i n the results section. POC GLUCOSE Routine 06/18/2019 7:29 Results for this AM [employer]OUNTS PAYABLE LEAD procedure are i n the results section. URINE CULTURE Routine 06/18/2019 7:24 Results fo r this AM [employer] PAYABLE LEAD procedure are i n the results section. URINALYSIS SCREEN AND Routine 06/18/2019 5:30 Re sults for this MICROSCOPY, WITH REFLEX AM [employer]OUNTS PAYABLE LEAD proc edure are in TO CULTURE the results section. AMMONIA LEVEL Routine 06/18/2019 5:00 Results fo r this AM [employer]OUNTS PAYABLE LEAD procedure are i n the results section. HEPATITIS B SURFACE AB, Routine 06/18/2019 5:00 Results for this QUANTITATIVE AM [employer]S PAYABLE LEAD procedure are i n the results section. HC COMPLETE BLD COUNT Routine 06/18/2019 5:00 Re sults for this W/AUTO DIFF AM [employer] PAYABLE LEAD procedure are i n the results section. PROTHROMBIN TIME WITH Routine 06/18/2019 5:00 Re sults for this INR AM [employer]S PAYABLE LEAD procedure are i n the results section. ESTIMATED GFR Routine 06/18/2019 4:00 Results fo r this AM [employer]S PAYABLE LEAD procedure are i n the results section. GGT Routine 06/18/2019 4:00 Results for this AM [employer]OUNTS PAYABLE LEAD procedure are i n the results section. ANNE Routine 06/18/2019 4:00 Results for this AM ACCOUNTS PAYABLE LEAD procedure are i n the results section. ALPHA-1 ANTITRYPSIN Routine 06/18/2019 4:00 Resu lts for this LEVEL AM [employer] PAYABLE LEAD procedure are i n the results section. ALPHA FETOPROTEIN Routine 06/18/2019 4:00 Result s for this AM ACCOUNTS PAYABLE LEAD procedure are i n the results section. CERULOPLASMIN LEVEL Routine 06/18/2019 4:00 Resu lts for this AM ACCOUNTS PAYABLE LEAD procedure are i n the results section. HEPATITIS C ANTIBODY Routine 06/18/2019 4:00 Res ults for this AM ACCOUNTS PAYABLE LEAD procedure are i n the results section. HEPATITIS B SURFACE Routine 06/18/2019 4:00 Resu lts for this ANTIGEN AM ACCOUNTS PAYABLE LEAD procedure are i n the results section. HEPATITIS B SURFACE Routine 06/18/2019 4:00 Resu lts for this ANTIBODY AM ACCOUNTS PAYABLE LEAD procedure are i n the results section. HEPATITIS B CORE Routine 06/18/2019 4:00 Results for this ANTIBODY TOTAL AM ACCOUNTS PAYABLE LEAD procedure are in the results section. HEPATITIS B CORE Routine 06/18/2019 4:00 Results for this ANTIBODY IGM AM ACCOUNTS PAYABLE LEAD procedure are i n the results section. HEPATITIS A ANTIBODY IGM Routine 06/18/2019 4:00 Results for this AM ACCOUNTS PAYABLE LEAD procedure are i n the results section. PHOSPHORUS LEVEL Routine 06/18/2019 4:00 Results for this AM ACCOUNTS PAYABLE LEAD procedure are i n the results section. MAGNESIUM LEVEL Routine 06/18/2019 4:00 Results for this AM ACCOUNTS PAYABLE LEAD procedure are i n the results section. BASIC METABOLIC PANEL Routine 06/18/2019 4:00 Re sults for this AM ACCOUNTS PAYABLE LEAD procedure are i n the results section. HEPATIC FUNCTION PANEL Routine 06/18/2019 4:00 R esults for this AM ACCOUNTS PAYABLE LEAD procedure are i n the results section. POC GLUCOSE Routine 06/17/2019 9:17 Results for this PM ACCOUNTS PAYABLE LEAD procedure are i n the results section. POC GLUCOSE Routine 06/17/2019 5:07 Results for this PM ACCOUNTS PAYABLE LEAD procedure are i n the results section. US ABDOMEN COMPLETE Routine 06/17/2019 4:48 Resu lts for this PM ACCOUNTS PAYABLE LEAD procedure are i n the results section. US ABDOMINAL DOPPLER Routine 06/17/2019 4:48 Res ults for this PM ACCOUNTS PAYABLE LEAD procedure are i n the results section. US RENAL Routine 06/17/2019 2:26 Results for this PM ACCOUNTS PAYABLE LEAD procedure are i n the results section. POC GLUCOSE Routine 06/17/2019 11:38 Results for this AM ACCOUNTS PAYABLE LEAD procedure are i n the results section. POC GLUCOSE Routine 06/17/2019 8:22 Results for this AM ACCOUNTS PAYABLE LEAD procedure are i n the results section. TISSUE TRANSGLUTAMINASE Routine 06/17/2019 4:53 Results for this AB, IGA AM ACCOUNTS PAYABLE LEAD procedure are i n the results section. ESTIMATED GFR Routine 06/17/2019 4:53 Results fo r this AM ACCOUNTS PAYABLE LEAD procedure are i n the results section. PHOSPHORUS LEVEL Routine 06/17/2019 4:53 Results for this AM ACCOUNTS PAYABLE LEAD procedure are i n the results section. MAGNESIUM LEVEL Routine 06/17/2019 4:53 Results for this AM ACCOUNTS PAYABLE LEAD procedure are i n the results section. BASIC METABOLIC PANEL Routine 06/17/2019 4:53 Re sults for this AM ACCOUNTS PAYABLE LEAD procedure are i n the results section. CELIAC DISEASE REFLEXIVE Routine 06/17/2019 4:53 Results for this CASCADE AM ACCOUNTS PAYABLE LEAD procedure are i n the results section. POC GLUCOSE Routine 06/17/2019 12:44 Results for this AM ACCOUNTS PAYABLE LEAD procedure are i n the results section. POC GLUCOSE Routine 06/16/2019 9:02 Results for this PM ACCOUNTS PAYABLE LEAD procedure are i n the results section. POC GLUCOSE Routine 06/16/2019 4:27 Results for this PM ACCOUNTS PAYABLE LEAD procedure are i n the results section. POC GLUCOSE Routine 06/16/2019 12:07 Results for this PM ACCOUNTS PAYABLE LEAD procedure are i n the results section. ECG 12-LEAD Routine 06/16/2019 11:18 Results for this AM ACCOUNTS PAYABLE LEAD procedure are i n the results section. POC GLUCOSE Routine 06/16/2019 7:25 Results for this AM ACCOUNTS PAYABLE LEAD procedure are i n the results section. ESTIMATED GFR Routine 06/16/2019 4:00 Results fo r this AM ACCOUNTS PAYABLE LEAD procedure are i n the results section. PHOSPHORUS LEVEL Routine 06/16/2019 4:00 Results for this AM ACCOUNTS PAYABLE LEAD procedure are i n the results section. MAGNESIUM LEVEL Routine 06/16/2019 4:00 Results for this AM ACCOUNTS PAYABLE LEAD procedure are i n the results section. BASIC METABOLIC PANEL Routine 06/16/2019 4:00 Re sults for this AM ACCOUNTS PAYABLE LEAD procedure are i n the results section. POC GLUCOSE Routine 06/15/2019 8:49 Results for this PM ACCOUNTS PAYABLE LEAD procedure are i n the results section. POC GLUCOSE Routine 06/15/2019 4:31 Results for this PM ACCOUNTS PAYABLE LEAD procedure are i n the results section. FECAL CALPROTECTIN Routine 06/15/2019 4:30 Resul ts for this PM ACCOUNTS PAYABLE LEAD procedure are i n the results section. SPIROMETRY, DIFFUSION, Routine 06/15/2019 2:29 Tachycardia R esults for this LUNG VOLUMES PM ACCOUNTS PAYABLE LEAD procedure are i n the results section. POC GLUCOSE Routine 06/15/2019 12:27 Results for this PM ACCOUNTS PAYABLE LEAD procedure are i n the results section. US CAROTID DUPLEX Routine 06/15/2019 11:31 Result s for this BILATERAL AM ACCOUNTS PAYABLE LEAD procedure are i n the results section. POC GLUCOSE Routine 06/15/2019 7:24 Results for this AM ACCOUNTS PAYABLE LEAD procedure are i n the results section. ESTIMATED GFR Routine 06/15/2019 3:38 Results fo r this AM ACCOUNTS PAYABLE LEAD procedure are i n the results section. PHOSPHORUS LEVEL Routine 06/15/2019 3:38 Results for this AM ACCOUNTS PAYABLE LEAD procedure are i n the results section. MAGNESIUM LEVEL Routine 06/15/2019 3:38 Results for this AM ACCOUNTS PAYABLE LEAD procedure are i n the results section. BASIC METABOLIC PANEL Routine 06/15/2019 3:38 Re sults for this AM ACCOUNTS PAYABLE LEAD procedure are i n the results section. HC COMPLETE BLD COUNT Routine 06/15/2019 3:38 Re sults for this W/AUTO DIFF AM ACCOUNTS PAYABLE LEAD procedure are i n the results section. POC GLUCOSE Routine 06/14/2019 9:02 Results for this PM ACCOUNTS PAYABLE LEAD procedure are i n the results section. CT HEAD WO CONTRAST STAT 06/14/2019 8:31 Resu lts for this PM ACCOUNTS PAYABLE LEAD procedure are i n the results section. POC GLUCOSE Routine 06/14/2019 4:31 Results for this PM ACCOUNTS PAYABLE LEAD procedure are i n the results section. POC GLUCOSE Routine 06/14/2019 3:36 Results for this PM ACCOUNTS PAYABLE LEAD procedure are i n the results section. POC GLUCOSE Routine 06/14/2019 12:06 Results for this PM ACCOUNTS PAYABLE LEAD procedure are i n the results section. POC GLUCOSE Routine 06/14/2019 8:38 Results for this AM ACCOUNTS PAYABLE LEAD procedure are i n the results section. GASTROINTESTINAL PANEL Routine 06/14/2019 5:48 R esults for this AM ACCOUNTS PAYABLE LEAD procedure are i n the results section. T4, FREE Routine 06/14/2019 5:14 Results for this AM ACCOUNTS PAYABLE LEAD procedure are i n the results section. THYROID STIMULATING Routine 06/14/2019 5:14 Resu lts for this HORMONE AM ACCOUNTS PAYABLE LEAD procedure are i n the results section. LIPID PANEL Routine 06/14/2019 5:14 Results for this AM ACCOUNTS PAYABLE LEAD procedure are i n the results section. HEMOGLOBIN A1C Routine 06/14/2019 5:14 Results f or this AM ACCOUNTS PAYABLE LEAD procedure are i n the results section. MANUAL DIFFERENTIAL Routine 06/14/2019 4:59 Resu lts for this AM ACCOUNTS PAYABLE LEAD procedure are i n the results section. ESTIMATED GFR Routine 06/14/2019 4:59 Results fo r this AM ACCOUNTS PAYABLE LEAD procedure are i n the results section. BASIC METABOLIC PANEL Routine 06/14/2019 4:59 Re sults for this AM ACCOUNTS PAYABLE LEAD procedure are i n the results section. CBC WITH PLATELET AND Routine 06/14/2019 4:59 Re sults for this DIFFERENTIAL AM ACCOUNTS PAYABLE LEAD procedure are i n the results section. POC GLUCOSE Routine 06/13/2019 9:19 Results for this PM ACCOUNTS PAYABLE LEAD procedure are i n the results section. POC GLUCOSE Routine 06/13/2019 4:35 Results for this PM ACCOUNTS PAYABLE LEAD procedure are i n the results section. POC GLUCOSE Routine 06/13/2019 11:50 Results for this AM ACCOUNTS PAYABLE LEAD procedure are i n the results section. POC GLUCOSE Routine 06/13/2019 8:04 Results for this AM ACCOUNTS PAYABLE LEAD procedure are i n the results section. POC GLUCOSE Routine 06/13/2019 8:02 Results for this AM ACCOUNTS PAYABLE LEAD procedure are i n the results section. HC COMPLETE BLD COUNT Routine 06/13/2019 5:30 Re sults for this W/AUTO DIFF AM ACCOUNTS PAYABLE LEAD procedure are i n the results section. ESTIMATED GFR Routine 06/13/2019 4:00 Results fo r this AM ACCOUNTS PAYABLE LEAD procedure are i n the results section. BASIC METABOLIC PANEL Routine 06/13/2019 4:00 Re sults for this AM ACCOUNTS PAYABLE LEAD procedure are i n the results section. TROPONIN Timed 06/13/2019 1:36 Results for this AM ACCOUNTS PAYABLE LEAD procedure are i n the results section. TROPONIN Timed 06/12/2019 10:55 Results for this PM ACCOUNTS PAYABLE LEAD procedure are i n the results section. GASTROINTESTINAL PANEL Routine 06/12/2019 10:05 R esults for this PM ACCOUNTS PAYABLE LEAD procedure are i n the results section. INFLUENZA ANTIGEN Routine 06/12/2019 9:15 Result s for this PM ACCOUNTS PAYABLE LEAD procedure are i n the results section. XR CHEST 1 VW PORTABLE STAT 06/12/2019 8:55 R esults for this PM ACCOUNTS PAYABLE LEAD procedure are i n the results section. ECG ED PRELIMINARY Routine 06/12/2019 7:50 Resul ts for this INTERPRETATION PM ACCOUNTS PAYABLE LEAD procedure are in the results section. URINALYSIS SCREEN AND STAT 06/12/2019 7:49 Re sults for this MICROSCOPY, WITH REFLEX PM ACCOUNTS PAYABLE LEAD proc edure are in TO CULTURE the results section. ESTIMATED GFR STAT 06/12/2019 7:49 Results fo r this PM ACCOUNTS PAYABLE LEAD procedure are i n the results section. PROTHROMBIN TIME WITH STAT 06/12/2019 7:49 Re sults for this INR PM ACCOUNTS PAYABLE LEAD procedure are i n the results section. PARTIAL THROMBOPLASTIN STAT 06/12/2019 7:49 R esults for this TIME (PTT) PM ACCOUNTS PAYABLE LEAD procedure are i n the results section. B NATRIURETIC PEPTIDE STAT 06/12/2019 7:49 Re sults for this PM ACCOUNTS PAYABLE LEAD procedure are i n the results section. TROPONIN STAT 06/12/2019 7:49 Results for this PM ACCOUNTS PAYABLE LEAD procedure are i n the results section. COMPREHENSIVE METABOLIC STAT 06/12/2019 7:49 Results for this PANEL PM ACCOUNTS PAYABLE LEAD procedure are i n the results section. HC COMPLETE BLD COUNT STAT 06/12/2019 7:49 Re sults for this W/AUTO DIFF PM ACCOUNTS PAYABLE LEAD procedure are i n the results section. URINE CULTURE STAT 06/12/2019 7:49 Results fo r this PM ACCOUNTS PAYABLE LEAD procedure are i n the results section. ECG 12-LEAD STAT 06/12/2019 7:42 Results for this PM ACCOUNTS PAYABLE LEAD procedure are i n the results section. after 11/20/2018 Results POC glucose (07/16/2019 12:29 PM CDT)Only the most recent of156 resultswithin the time period is included. Pathologist Sig nature POC glucose 253 (H) 65 - 99 mg/dL [facility] Comment: HOSPITAL Can Filler Name: Ney Lao Device ID: [id number] Chartable: [facility] Notified RN Specimen Blood Performing Organization Address City/State/Zipcode Phone Number [facility] DEPARTMENT OF PATHOLOGY AND [address] [place], [place] [address] GEN[address] [address] Estimated GFR (07/16/2019 4:00 AM CDT)Only the most recent of36 resultswithin the time period is included. Estimated GFR 14 (A) mL/min/1.73 [facility] Comment: m2 HOSPITAL Catergory Units Interpretation G1 [...] published in 2014. Specimen Performing Organization Address City/[facility] Phone Number [facility] DEPARTMENT OF PATHOLOGY AND [address] [place] [address] Phosphorus level (07/16/2019 4:00 AM CDT)Only the most recent of31 results within the time period is included. Pathologist Sig nature Phosphorus 4.3 2.4 - 4.5 mg/dL [facility] L Specimen Blood Performing Organization Address [facility] Phone Number [facility] DEPARTMENT OF PATHOLOGY AND [address] [place] [address] [phone] [address] Basic metabolic panel (07/16/2019 4:00 AM CDT)Only the most recent of35 results within the time period is included. Pathologist Sig nature Sodium 142 135 - 148 mEq/L [facility] Potassium 4.3 3.5 - 5.0 mEq/L [facility] Chloride 105 98 - 112 mEq/L [facility] CO2 27 24 - 31 mEq/L [facility] Anion gap 10@ANIO 7 - 15 mEq/L [facility] BUN 46 (H) 6 - 20 mg/dL [facility] Creatinine 4.61 (H) 0.70 - 1.20 mg/dL [facility] Glucose 189 (H) 65 - 99 mg/dL [facility] Calcium 8.7 8.3 - 10.2 mg/dL [facility] Specimen Blood Performing Organization Address [facility] Phone Number [facility] DEPARTMENT OF PATHOLOGY AND [address] [place] [phone] [facility] [address] [place] [address] CBC with platelet and differential (07/15/2019 5:30 AM CDT)Only the most recent of15 resultswithin the time period is included. WBC 6.44 4.50 - 11.00 [facility] k/uL HOSPITAL RBC 3.54 (L) 4.40 - 6.00 [facility] m/uL HOSPITAL HGB 10.6 (L) 14.0 - 18.0 [facility] g/dL [facility] HCT 31.2 (L) 41.0 - 51.0 % [facility] MCV 88.1 82.0 - 100.0 [facility] MCH 29.9 27.0 - 34.0 pg [facility] MCHC 34.0 31.0 - 37.0 [facility] - SD 44.3 37.0 - 55.0 fL [facility] MPV 12.1 8.8 - 13.2 fL [facility] Platelet count 157 150 - 400 k/uL [facility] Nucleated RBC 0.00 /100 WBC [facility] Neutrophils 48.0 39.0 - 69.0 % [facility] Lymphocytes 32.5 25.0 - 45.0 % [facility] Monocytes 7.8 0.0 - 10.0 % [facility] Eosinophils 10.6 (H) 0.0 - 5.0 % [facility] Basophils 0.9 0.0 - 1.0 % [facility] Immature granulocytes 0.2Comment: 0.0 - 1.0 % [facility] "Immature HOSPITAL granulocytes" (promyelocytes , myelocytes, metamyelocytes ) Specimen Blood Performing Organization Address City/State/Zipcode Phone Number [facility] DEPARTMENT OF PATHOLOGY AND [address] [place] [phone] [place] [id number] [place] [address] Magnesium level (07/14/2019 5:10 AM CDT)Only the most recent of29 resultswithin the time period is included. Pathologist Sig nature Magnesium 1.9 1.6 - 2.6 mg/dL [facility] Specimen Blood Performing Organization Address City/[facility]/Zipcode Phone Number [facility] DEPARTMENT OF PATHOLOGY AND [address], [place] [address] GENOMIC MEDICINE [facility] [address] [place] [address] CT Chest Wo Contrast (07/11/2019 9:40 AM [...] ensure appropriate moderation of exposure. Automated dose sales and management trainee nology is applied to adjust the radiation [...] of multifocal pneumonia. Rec ommend clinical correlation.. [facility]-[id number] Procedure Note Interface, Radiology Results Incoming - [...] improvement of multifocal pneumonia. Recommend clinical correlation.. [facility]-[id number] Performing Organization Address [facility] Phone Number [facility] [address] [place] [address] Total iron binding capacity (07/10/2019 1:40 PM CDT) Pathologist Sig [facility] Iron level 72 59 - 158 ug/dL [facility] Iron binding capacity 298 200 - 400 ug/dL [facility] % Saturation 24.2 20.0 - 40.0 % [facility] Specimen Blood Performing Organization Address [facility] Phone Number [facility] DEPARTMENT OF PATHOLOGY AND [address] [place], [place] [address] [address] [address] Ferritin level (07/10/2019 1:40 PM CDT) Pathologist Sig [facility] Ferritin level 214 30 - 400 ng/mL [facility] Specimen Blood Performing Organization Address City/State/Zipcode Phone Number [facility] DEPARTMENT OF PATHOLOGY AND [address] [place], [place] [address] GENOMIC MEDICINE [facility] [address] [place] [address] [place] Modified Barium Swallow (07/09/2019 1:51 PM [...] to Speech Pathology report for further details. [facility]-[id number] Dictated and approved by radiology administrator/fellow: Marin Escamilla M.D. I, Adriana Morales MD, personally reviewed the images and resident's/fellow's findings and agree with the final report. Procedure Note [facility], Radiology Results Incoming - 07/09/2019 3:05 [...] to Speech Pathology report for further details. [facility]-[id number] Dictated and approved by radiology resid ent/fellow: Eugenia Escamilla M.D. I, Adriana Morales MD, personally review ed the images and resident's/fellow's findings and agree with the final report. Performing Organization Address City/State/Zipcode Phone Number [facility] [address] [place] [address] Hepatic function panel (07/08/2019 4:00 AM CDT)Only the most recent of15 resultswithin the time period is included. Albumin 2.4 (L) 3.5 - 5.0 [facility] g/dL [facility] Total bilirubin <0.2 0.0 - 1.2 [facility] mg/dL [facility] Bilirubin direct <0.2 0.0 - 0.3 [facility] mg/dL HOSPITAL Alkaline phosphatase 133 (H) 40 - 129 U/L [facility] Protein 6.9 6.3 - 8.3 [facility] Comment: g/dL [facility] [place] 4.6-7.0 g/dL 1 week 4.4-7.6 g/dL 7 months-1year 5.1-7.3 g/dL 1-2 years 5.6-7.5 g/dL >3 years 6.0-8.0 g/dL 18-150 6.3-8.3 g/dL ALT 20 5 - 50 U/L [facility] AST 20 10 - 50 U/L [facility] Specimen Plasma specimen Performing Organization Address City/[facility] Phone Number [facility] DEPARTMENT OF PATHOLOGY AND [address] [place] [phone] [address] Hypersensitivity pneumonitis II (07/07/2019 5:30 PM CDT) [...] REF candidus Comment: tin LAB Performed by [facility], [address] [place], [place] [id number] [email or web address], Roberto Almaguer MD, Lab. Director Thermoactinomyces NOT PERFORMED WITH [facility] saccharii THIS PANEL LAB Specimen Serum Performing Organization Address [facility]/Zipcode Phone Number [facility] [address] [place] [address] [facility] [address] [place] [address] Hypersensitivity pneumonitis I (07/07/2019 5:30 PM CDT) Aspergillus fumigatus None Detected None-[facility] REF #1 tin LAB Aspergillus fumigatus None Detected None-[facility] REF #6 tin LAB Aureobasidium pullulans None Detected None-[facility] REF Comment: tin LAB Testing includes antibodies directed at Aureobasidium pullulans, Aspergillus fumigatus #1, Aspergillus fumigatus #6, Mi cropolyspora faeni, [place] Serum and Thermoactinomyces vulgaris #1. [place] serum None Detected None-[facility] REF tin LAB Micropolyspora faeni None Detected None-[facility] REF tin LAB Thermoactinomyces None Detected None-[facility] REF vulgaris #1 Comment: tin LAB Performed by [facility], [address] [place] [id number] [email or web address], Roberto Almaguer MD, Lab. Director Specimen Serum Performing Organization Address City/[facility] Phone Number [facility] [address] [place] [address] [facility] [address] [place] [address] Immunoglobulin G (07/07/2019 4:11 PM CDT) Pathologist [facility] nature IgG 1,005 700 - 1,600 mg/dL [facility] Specimen Plasma specimen Performing Organization Address City/[facility]/Zipcode Phone Number [facility] DEPARTMENT OF PATHOLOGY AND [address] [place] [address] [phone] [address] SS-B antibody (07/07/2019 2:30 PM CDT) Pathologist [facility] Sjogren's SS-B <0.2 0.0 - 0.9 [facility] antibody [facility] SS-B antibody Negative [facility] inter Comment: SABIANISM SS-B/La antibody is seen in patients with Sjogre n syndrome, but may also be HOSPITAL positive with systemic lupus erythematosus (SLE), and systemic sclerosis. Specimen Serum Performing Organization Address City/[facility]/Zipcode Phone Number [facility] DEPARTMENT OF PATHOLOGY AND [address] [place] [address] [phone] [address] SS-A antibody (07/07/2019 2:30 PM CDT) Pathologist [facility] Sjogren's SS-A <0.2 0.0 - 0.9 [facility] antibody [facility] SS-A antibody Negative [facility] interp Comment: SABIANISM SS-A antibody is sensitive for Sjogren's syndrom e, but may also be positive HOSPITAL with systemic lupus erythematosus (SLE), and systemic sclerosis. Specimen Serum Performing Organization Address City/State/Zipcode Phone Number [facility] DEPARTMENT OF PATHOLOGY AND [address] [place] [address] Scl-70 antibody (07/07/2019 2:30 PM CDT) Pathologist [facility] Scleroderma SCL-70 <0.2 0.0 - 0.9 [facility] Ab [facility] Scl-70 antibody Negative [facility] interp Comment: SABIANISM Anti-Scl-70 (topoisomerase I) antibodies are found in patients with HOSPITAL systemic sclerosis (SSc or scleroderma), and have been reported to be predictive of diffuse cutaneous involvement. Anti-Scl- 70 antibodies may also be present in patients with systemic lupus erythe matosus (SLE). Specimen Serum Performing Organization Address City/State/Zipcode Phone Number [facility] DEPARTMENT OF PATHOLOGY AND [address] [place] [phone] Centromere antibody (07/07/2019 2:30 PM CDT) Pathologist [facility] Centromere <0.2 0.0 - 0.9 [facility] Centromere Negative [facility] antibody interp Comment: HOSPITAL Anti-centromere antibodies are found in patients with systemic sclerosis (SSc or scleroderma), especially for those with limite d cutaneous or CREST syndrome. Anti-centromere antibodies may also be found in patients with other rheumatic or connective tissue diseases. Specimen Serum Performing Organization Address City/State/Zipcode Phone Number [facility] DEPARTMENT OF PATHOLOGY AND [address] [place] [phone] DNA Ab screen (07/07/2019 2:30 PM CDT) Pathologist [facility] nature DNA Ab screen Not Detected Not-Detected [facility] Specimen Blood Performing Organization Address City/State/Zipcode Phone Number [facility] DEPARTMENT OF PATHOLOGY AND [address] [place], [place] [address] [facility] [address] [place] [address] Anti-neutrophilic cytoplasmic Abs panel (07/07/2019 2:30 PM CDT) Pathologist Sig nature ANCA screen Negative Negative [facility] Specimen Blood Performing Organization Address City/State/Zipcode Phone Number [facility] DEPARTMENT OF PATHOLOGY AND [address] [place], [place] [address] [facility] [address] [place] [address] CT Cardiac Overread (07/06/2019 6:20 PM CDT) [...] Performing Organization Address City/State/Zipcode Phone Number [facility] [address] [place] [address] Cv cta coronary arteries w contrast and ffr if needed (07/06/2019 1:32 PM CDT) Specimen Narrative Performed At This result has an attachment that is no t available. [facility] Nuclear Cardiology and Card iac CT [address] [address] CTA Coronary Arteries R eport Pat.Name: PAOLA KWONG Pat.ID: [id number] .Date: 07/06/2019 Refer.MD: MILTON ELLINGTON MD Exam Time: 1:09:00 PM Study Type:C TA Coronary Arteries Height: 67in Weight: 212lb BSA: 2.07 m2 Age: 6 1965,53Y Sex: MALE BP: 151/83 HR: 54 bpm Nuclear Tech:Samina Beyer, RT(R)(CT) Pat. Stat.:Inpatient Tape Vol: 33.2, CPT - 4: CCTA w Thoracic Aorta (NonCongenital) [id number] Nuclear Event ID:[id number] Order ID: [id number] Reason for Study:Pre-Op CABG, CAD History / Clinical:Coronary artery disease, Diabetes, Hyperlipidemia, Hypertension, S/P PCI 07/2007, Liver cirrhosis/Hepatiti s C Procedures: CT Prospective (phases) Race: C SUMMARY: Technique: IV contrast was administered and sequential 0.[address] cuts were obtained through the chest using the Siemens [employer] m[employer] Force CT scanner. Image post-processing consisting of multiplan ar and 3D reconstructions were performed using the [employer] workstation. Interactive image viewing, volumetric dis play [...] refer to the separate radiology report in [facility] for any additional non-cardiovascular findings. STUDY QUALITY The study quality is good. COMMENTS None. FINDINGS: Signed 07/06/2019 05:59 PM Sreedhar Walton MD Procedure Note Interface, Radiology Results In - 2019 5:59 PM CDT Nuclear Cardiology and Cardiac CT [address] [place] [address] CTA Coronary Arteri es Report Pat.Name: PAOLA KWONG Pat.I D: [id number] St.Date: 07/06/2019 Refer.MD: MILTON ELLINGTON MD Exam Time: 1:09:00 PM Study Type:CTA Coronary Arteries Height: 67in Weigh t: 212lb BSA: 2.07 m2 Age: 6 1965,53Y Sex: MALE BP: 151/83 HR: 54 bpm Nuclear Tech:Samina Beyer RT(R)(CT) Pat. Stat.:Inpatient Tape Vol: 33.2, CPT - 4: CCTA w Thoracic Aorta (NonCo ngenital) [id number] Nuclear Event ID:[id number] Order ID: [id number] Reason for Study:Pre-Op CABG, CAD History / Clinical:Coronary artery disea se, Diabetes, Hyperlipidemia, Hypertension, S/P PCI 07/2007, Liver cirr hosis/Hepatitis C Procedures: CT Prospective (phases) Race: C SUMMARY: Technique: IV contrast was administered and sequential 0.[address] cuts were obtained through the chest using e Siemens [employer] CT scanner. Image post-processing consistin g of multiplanar and 3D reconstructions were performed using the [employer] workstation. Interactive image viewing, volumetric display and [...] to the separate radiology r eport in [facility] for any additional non-cardiovascular findings. STUDY QUALITY The study quality is good. COMMENTS None. FINDINGS: Signed 07/06/2019 05:59 PM Sreedhar Walton MD Performing Organization Address [facility] Phone Number [facility] [address] [place] [address] HIV Ag/Ab combination (07/06/2019 5:20 AM CDT) Pathologist [facility] HIV Ag/Ab combination Non-reactive Non-reactive [facility] Specimen Blood Performing Organization Address [facility] Phone Number [facility] DEPARTMENT OF PATHOLOGY AND [address] [place] [address] [place] [address] Prothrombin time with INR (07/06/2019 5:20 AM CDT)Only the most recent of3 resultswithin the time period is included. [facility] Prothrombin time 14.5 11.5 - 14.5 [facility] INR 1.1 [facility] Comment: [facility] International Normalized Ratio (INR) is a [facility] monitoring tool for patients who are stable on oral anticoagulant therapy. An INR of 2.0-3.0 is suggested for deep vein thrombosis/pulmonary embolism. Specimen Blood Performing Organization Address [facility] Phone Number [facility] DEPARTMENT OF PATHOLOGY AND [address] [place] [address] [address] [address] Rheumatoid factor (07/06/2019 5:20 AM CDT) Pathologist [facility] Rheumatoid factor <10 0 - 13 IU/mL [facility] Specimen Plasma specimen Performing Organization Address [facility] Phone Number [facility] DEPARTMENT OF PATHOLOGY AND [address] [place] [address] [address] [address] C3 complement component (07/06/2019 5:20 AM CDT) Pathologist [facility] C3 complement 133 90 - 180 mg/dL [facility] L Specimen Plasma specimen Performing Organization Address [facility] Phone Number [facility] DEPARTMENT OF PATHOLOGY AND [address] [place] [address] 0 [place] [address] C4 complement component (07/06/2019 5:20 AM CDT) Pathologist Sig nature C4 complement 34 10 - 40 mg/dL [facility] Specimen Plasma specimen Performing Organization Address [facility] Phone Number [facility] DEPARTMENT OF PATHOLOGY AND [address] [place] [address] [facility] [address] [place] [address] Transthoracic Echocardiogram Complete, (w Contrast, Strain and 3D if needed) (07/05/2019 9:25 AM CDT) Specimen Narrative Performed At [facility] Echo cardiography Report [address] [place] [address] Pat.Name: PAOLA KWONG Pat.ID: [id number] .Date: 07/05/2019 Refer.MD: MILTON ELLINGTON MD Exam Time: 7:54:00 AM Study Type:R outine Echo Height: 67in Weight: 212lb BSA: 2.07 m2 Ag e: 1965,53Y Sex: MALE BP: 157/71 Sonogrphr: Audrey Bella RDCS, RVSPat. Stat.:Inpatien t Room: [facility] Study S tatus:Final Echo Event ID:[id number] Order ID: [id number] Reason for Study:Chest pain, suspected c ardiac [...] PA systolic pressure. MEASUREMENTS: 2D Parasternal Long Warner Ao An 2 cm LVPWd 1.5 cm [...] - 2019 10:49 AM CDT Echocardiography Report [address] [place] [address] Pat.Name: PAOLA KWONG Pat.I D: [id number] St.Date: 07/05/2019 Refer.MD: MILTON ELLINGTON MD Exam Time: 7:54:00 AM Study Type:Routine Echo Height: 67in Weigh t: 212lb BSA: 2.07 m2 Age: 6 1965,53Y Sex: MALE BP: 157/71 Sonogrphr: Audrey Bella RDCS, RVSPat. Stat.:Inpatient Room: [facility] Study Status:Final Echo Event ID:[id number] Order ID: [id number] Reason for Study:Chest pain, suspected c ardiac [...] PA systolic pressure. MEASUREMENTS: 2D Parasternal Long Warner Ao An 2 cm LVPW d 1.5 [...] Organization Address City/State/Zipcode Phone Number [facility] [address] [place] [address] Vancomycin level, random (07/05/2019 5:14 AM CDT)Only the most recent of8 resultswithin the time period is included. Pathologist Sig nature Vancomycin, random 11.9 ug/mL [facility] ITAL Specimen Serum Performing Organization Address City/[facility]/Zipcode Phone Number [facility] DEPARTMENT OF PATHOLOGY AND [address] [place], [place] [address] GENOMIC MEDICINE [facility] [address] [place] [address] V[facility]UNC NEED PHYS SKILL,DX OR RX (07/02/2019 2:59 PM ACCOUNTS PAYABLE LEAD) Narrative Performed At Estela Padilla RN 07/02/2019 3:03 PM Midline Date/Time: 07/02/2019 2:59 PM Performed by: Kaykay Rain Authorized by: Milton Ellington Sr., MD Consent: Consent obtained: Verbal Consent given by: Patient Risks discussed: arterial puncture, incorrect place ment, nerve damage, infection, bleeding, superficial thrombu s and deep vein thrombus Alternatives discussed: No treatment, delayed cathy atment and alternative treatment [employer] protocol: Procedure explained and questions ans wered [...] 4.5. 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 IV therapy Location: Right basilic Device Type: Non-valved Catheter size: 4 Fr Catheter to vein ratio: 31% Line Characteristics: Catheter Brand: BioFlo Midline External Catheter Length (cm): 0 Internal Catheter Length (cm): 10 Total Catheter Length (cm): 10 Catheter Lot Number: [id number] Catheter Expiration Date: 12/26/2020 Procedure Details: Landmarks [...] complications Vancomycin level, trough (07/01/2019 2:30 PM ACCOUNTS PAYABLE LEAD) Vancomycin, 23.0 (HH) 10.0 - 20.0 [facility] trough Comment: ug/mL HOSPITAL Therapeutic Ranges: Peak 30.0 - 40.0 ug/mL Trough 10.0 - 20.0 ug/mL Specimen Serum Performing Organization Address City/State/Zipcode Phone Number [facility] DEPARTMENT OF PATHOLOGY AND [address] [place], [place] [address] [address] Surgical pathology request (06/30/2019 11:36 AM ACCOUNTS PAYABLE LEAD) [facility] DEPARTMENT OF PATHOLOGY AND GENOMIC MEDICINE Surgical pathology See link below [facility] DEPARTMENT OF report for PDF Lab PATHOLOGY AND Report GENOMIC MEDICINE Result status This is Final [facility] DEPARTMENT OF Report for PATHOLOGY AND [id number] GENOMIC MEDICINE Specimen Performing Organization Address City/State/Zipcode Phone Number [facility] DEPARTMENT OF PATHOLOGY AND [address] [place], [place] [address] GENOMIC MEDICINE IR Transjugular Liver Biopsy (06/30/2019 9:39 AM ACCOUNTS PAYABLE LEAD) Specimen Narrative Performed At Performing Radiologist EMERY Lauren MD Assistants None Anesthesia Type Moderate sedation was administered by the procedure nu rse and monitored by the procedure physician for a jipg-rl-vnxy sedation time of 20 minutes. Lidocaine 1% [...] atrial pressure measures were then obtained. A 5-Portuguese multipurpose catheter was advanced over the g uidewire and used to select the right hepatic vein. A CO2 right hepatic venogram was performed. Pressure measure ments were also obtained in both the free and wedge positions. The 9-F rench vascular sheath was then advanced into the right hepatic vein. The transjugular liver biopsy system was advanced through the 9-Portuguese vascular sheath, and multiple 18-gauge core liver biopsy specimens were obtained and submitted to pathology. [facility] transjugular liver biopsy system and 9-Portuguese vascular sheath were then removed from the [...] hepatic: 11 mmHg Wedge hepatic: 15 mmHg [facility]-[id number] Procedure Note [facility], Radiology Results Incoming - 06/30/2019 4:50 PM ACCOUNTS PAYABLE LEAD Performing Radiologist Vamshi Lauren MD Assistants None Anesthesia Type Moderate sedation was administered by th e procedure nurse and monitored by the procedure physician for a thwx-xe-jrtl sedation time of 20 minutes. Lidocaine 1% [...] into the inferior vena cava. A long 9-Portuguese vascular sheath was then placed,and adva nced over the guidewire into the right atrium. Right atrial pressure measures were then obtained. A 5-Portuguese multipurpose catheter was advanced over the guidewire and used to select the right hepatic vein. A CO2 right hepatic venogram was performed. Pr essure measurements were also obtained in both the free and wedge positions. The 9-Portuguese vascular sheath was then advanced into the right hepatic vein. The transjugular liver biopsy system was advanced through the 9-Portuguese vascular sheath, and multiple 18-gauge core liver biopsy specimens were obtained and submitted to pathology. The transjugular liver biopsy system and 9-Portuguese vascular sheath were then removed from the [...] hepatic: 11 mmHg Wedge hepatic: 15 mmHg [facility]-[id number] Performing Organization Address City/State/Zipcovt Phone Number [facility] [address] [place] [address] ECG 12 lead (06/28/2019 9:41 AM ACCOUNTS PAYABLE LEAD)Only the most recent of4 resultswithin the time period is included. Pathologist Sig nature Ventricular rate 62 [facility] Atrial rate 62 [facility] NM interval 152 [facility] QRSD interval 144 [...] is no t available. Performing Organization Address [facility] Phone Number [facility] MUSE [address] [place] [address] Troponin (06/28/2019 9:13 AM ACCOUNTS PAYABLE LEAD)Only the most recent of4 resultswithin the time period is included. Troponin <0.006 0.000 - 0.040 [facility] Comment: ng/mL [facility]OSPITAL In patients suspected of [...] specimen Performing Organization Address City/State/Zipcode Phone Number [facility] DEPARTMENT OF PATHOLOGY AND [address] [place] [address] GENOMIC MEDICINE [facility] [address] [place] [address] IR Tunneled Dialysis Catheter Placement (06/23/2019 10:03 AM ACCOUNTS PAYABLE LEAD) Specimen Narrative Performed At PERFORMING RADIOLOGIST: CONI Petersen MD ASSISTANTS: None. ANESTHESIA TYPE: Moderate sedation was administered by the procedure nu rse and monitored by the procedure physician for a total tdgi-md-smaw se dation time of 8 minutes. Lidocaine [...] PLAN: -Catheter is ready for immediate use. [facility]-[id number] Procedure Note [facility], Radiology Results Incoming - 06/24/2019 7:31 AM ACCOUNTS PAYABLE LEAD PERFORMING RADIOLOGIST: Will Petersen MD ASSISTANTS: None. ANESTHESIA TYPE: Moderate sedation was administered by [facility] procedure nurse and monitored by the procedure physician for a total igxk-ih-yoxu sedation time of 8 minutes. Lidocaine 1% [...] PLAN: -Catheter is ready for immediate use. [facility]-[id number] [facility] Organization Address City/State/Zipcode Phone Number [facility] [address] [place] [address] XR Abdomen 1 Vw Portable (06/21/2019 4:08 PM ACCOUNTS PAYABLE LEAD) Specimen Narrative Performed At EXAMINATION: XR ABDOMEN [...] are unremarkable. The lung bases are clear. [facility]-[id number] Procedure Note Interface, Radiology Results Incoming - 06/21/2019 6:05 PM ACCOUNTS PAYABLE LEAD EXAMINATION: XR ABDOMEN 1 VW PORTABLE CLINICAL [...] are unremarkable. The lung bases are clear. [facility]-[id number] Performing Organization Address City/State/Zipcode Phone Number [facility] [address] [place] [address] Aerobic culture (06/20/2019 5:32 PM ACCOUNTS PAYABLE LEAD) Aerobic culture Klebsiella pneumoniae GON[facility] T isolate [facility] The performance characteristics of this assay on this isolate were validated by the Microbiology Laboratory at [facility]. This source has not been approve d [...] were validated by the Microbiology Laboratory at [facility]. This source has not been approve d [...] were validated by the Microbiology Laboratory at [facility]. This source has not been approved by the U.S. Food and Drug Administration. The results are not intended to be used as the sole means for clinical win gnosis or patient management. The Microbiology Laboratory is authorized under the clinical Laboratory Improvement Amendments of 1988 (CLIA-88) to perform high complexit y testing. Aerobic culture Klebsiella pneumoniae GONZALEZ WHITE T isolate [facility] The performance characteristics of this assay on this isolate were validated by the Microbiology Laboratory at [facility]. This source has not been approve d by the U.S. Food and Drug Administration. The results are n ot intended to be used as the sole means for clinical win gnosis or patient management. The Microbiology Laboratory i s authorized under the clinical Laboratory Improvement Amendments of 1987 (CLIA-88) to perform high complexit y testing. (A) Aerobic culture Citrobacter freundii complex [facility] ETHODIST isolate [facility] The performance characteristics of this assay on this isolate were validated by the Microbiology Laboratory at [facility]. This source has not been approve d [...] complex Performing Organization Address City/State/Zipcode Phone Number [facility] DEPARTMENT OF PATHOLOGY AND [address] [place], [place] [address] GENOM[address] [address] Gram stain (06/20/2019 5:32 PM ACCOUNTS PAYABLE LEAD) Gram stain isolate Rare WBC's [facility] Many Gram negative rods HOSPITAL Rare Gram positive cocci in pairs Comment: Specimen Information Specimen Source: Drainage Specimen Site: Not otherwise specified Specimen Drainage - Not otherwise specified Performing Organization Address [facility]/Zipcode Phone Number [facility] DEPARTMENT OF PATHOLOGY AND [address] [place] [address] Protein, urine, random (06/19/2019 7:06 PM ACCOUNTS PAYABLE LEAD) Pathologist Sig nature Protein, urine random 584 mg/dL [facility] Specimen Urine Performing Organization Address [facility] Phone Number [facility] DEPARTMENT OF PATHOLOGY AND [address] [place] [address] [place] [address] Creatinine level, urine, random (06/19/2019 7:06 PM ACCOUNTS PAYABLE LEAD) Pathologist Sig nature Creatinine, urine, 99 mg/dL [facility] Specimen Urine Performing Organization Address [facility] Phone Number [facility] DEPARTMENT OF PATHOLOGY AND [address] [place] [address] Anti smooth muscle Ab screen (06/19/2019 12:00 AM ACCOUNTS PAYABLE LEAD) Pathologist Sig nature Anti smooth muscle Not Detected Not-Detected [facility] Ab [facility] Specimen Blood Performing Organization Address [facility] Phone Number [facility] DEPARTMENT OF PATHOLOGY AND [address] [place] [address] Anti mitochondria screen (06/19/2019 12:00 AM ACCOUNTS PAYABLE LEAD) Anti mitochondria Not Detected Not-Detected [facility] HOSPITAL Specimen Blood Performing Organization Address [facility] Phone Number [facility] DEPARTMENT OF PATHOLOGY AND [address] [place] [address] Urine culture (06/18/2019 7:24 AM ACCOUNTS PAYABLE LEAD)Only the most recent of2 resultswithin the time period is included. Urine culture No growth after 24 hours [facility] Comment: HOSPITAL Specimen Information Specimen Source: Urine Specimen Site: Clean catch Specimen Urine Performing Organization Address City/[facility] Phone Number [facility] DEPARTMENT OF PATHOLOGY AND [address] [place] [address] [phone] [address] Urinalysis screen and microscopy, with reflex to culture (06/18/2019 5:30 AM ACCOUNTS PAYABLE LEAD)Only the most recent of2 resultswithin the time period is included. Pathologist Sig nature Specimen site Clean catch [facility] Color, UA Yellow [facility] Appearance, UA Cloudy [facility] Specific gravity, 1.011 1.001 - [address].035 [facility] pH, UA 5.0 5.0 - 8.5 [facility] Protein, UA 3+ (A) Negative [facility] Glucose, UA 1+ (A) Negative [facility] Ketones, UA Negative Negative [facility] Bilirubin, UA Negative Negative [facility] Blood, UA Small (A) Negative [facility] Nitrite, UA Negative Negative [facility] Urobilinogen, UA <2.0 <2.0 [facility] Leukocyte esterase, Negative Negative [facility] WBC, UA 14 (H) 0 - 1 /HPF [facility] RBC, UA 1 0 - 5 /HPF [facility] Bacteria, UA Few None seen [facility] WBC clumps, UA Few (A) [facility] Yeast, UA None seen [facility] Yeast with None seen [facility] pseudohyphae, HOSPITAL Amorphous crystals Few [facility] Granular casts, UA 1 0 - 1 /LPF [facility] Specimen Urine Performing Organization Address City/State/Zipcode Phone Number [facility] DEPARTMENT OF PATHOLOGY AND [address] [place] [address] [phone] [address] Hepatitis B surface Ab, quantitative (06/18/2019 5:00 AM ACCOUNTS PAYABLE LEAD) Hepatitis B surface <3.10 IU/L [facility] REF LAB Ab Comment: The anti-HBs is [...] and Tissue-Based Products (HCT/P) . Performed by [facility], [address] [place] [id number] [email or web address], Roberto Almaguer MD, Lab. Director Specimen Serum Performing Organization Address [facility] Phone Number [facility] [address] [place] [address] [facility] [address] [place] [address] Ammonia level (06/18/2019 5:00 AM ACCOUNTS PAYABLE LEAD) Pathologist Sig nature Ammonia 63 (H) 16 - 60 umol/L [facility] Specimen Blood Performing Organization Address [facility] Phone Number [facility] DEPARTMENT OF PATHOLOGY AND [address] [place] [address] [address] Hepatitis C antibody (06/18/2019 4:00 AM ACCOUNTS PAYABLE LEAD) Pathologist Sig [facility] Hepatitis C Ab Non-reactive Non-reactive [facility] Specimen Serum Performing Organization Address [facility] Phone Number [facility] DEPARTMENT OF PATHOLOGY AND [address] [place] [address] [address] [address] Alpha-1 antitrypsin level (06/18/2019 4:00 AM ACCOUNTS PAYABLE LEAD) Pathologist Sig [facility] Alpha-1 antitrypsin 166 90 - 200 mg/dL [facility] Specimen Plasma specimen Performing Organization Address [facility] Phone Number [facility] DEPARTMENT OF PATHOLOGY AND [address] [place] [address] [address] [address] Hepatitis A antibody IgM (06/18/2019 4:00 AM ACCOUNTS PAYABLE LEAD) Pathologist Sig nature Hepatitis A IgM Non-reactive Non-reactive [facility] Specimen Serum Performing Organization Address City/[facility] Phone Number [facility] DEPARTMENT OF PATHOLOGY AND [address] [place] [address] [place] [address] Ceruloplasmin level (06/18/2019 4:00 AM ACCOUNTS PAYABLE LEAD) Pathologist Sig nature Ceruloplasmin 22 15 - 30 mg/dL [facility] Specimen Plasma specimen Performing Organization Address City/[facility] Phone Number [facility] DEPARTMENT OF PATHOLOGY AND [address] [place] [phone] Alpha fetoprotein (06/18/2019 4:00 AM ACCOUNTS PAYABLE LEAD) Alpha fetoprotein 1.6 0.0 - 8.3 [facility] Comment: ng/mL SABIANISM The Lexis 8000 AFP immunoassay was used. HOSPITAL Results obtained with different assay methods or kits should not be used interchangeably and may be differen t. Specimen Serum Performing Organization Address [facility] Phone Number [facility] DEPARTMENT OF PATHOLOGY AND [address] [place] [phone] Hepatitis B core antibody IgM (06/18/2019 4:00 AM ACCOUNTS PAYABLE LEAD) Pathologist Sig nature Hepatitis B core Non-reactive Non-reactive [facility] IgM HOSPITAL Specimen Serum Performing Organization Address City/[facility] Phone Number [facility] DEPARTMENT OF PATHOLOGY AND [address] [place] [address] [place] [phone] Hepatitis B core antibody total (06/18/2019 4:00 AM ACCOUNTS PAYABLE LEAD) Pathologist Sig nature Hepatitis B core Non-reactive Non-reactive [facility] total Ab HOSPITAL Specimen Serum Performing Organization Address City/[facility]/Zipcode Phone Number [facility] DEPARTMENT OF PATHOLOGY AND [address] [place] [address] [place] [address] Hepatitis B surface antibody (06/18/2019 4:00 AM ACCOUNTS PAYABLE LEAD) Pathologist Sig nature Hepatitis B surface Non-reactive Non-reactive [facility] Ab [facility] Specimen Serum Performing Organization Address City/[facility] Phone Number [facility] DEPARTMENT OF PATHOLOGY AND [address] [place] [address] [place] [address] Hepatitis B surface antigen (06/18/2019 4:00 AM ACCOUNTS PAYABLE LEAD) Pathologist Sig nature Hepatitis B surface Non-reactive Non-reactive [facility] Ag [facility] Specimen Serum Performing Organization Address City/[facility] Phone Number [facility] DEPARTMENT OF PATHOLOGY AND [address] [place] [address] [place] [phone] ANNE (06/18/2019 4:00 AM ACCOUNTS PAYABLE LEAD) ANNE screen Negative Negative [facility] Comment: HOSPITAL Test performed using [employer] DAPI ANNE kit (Indirect Immunofluorescence Assay) for Anti-Nuclear Antibody on [employer] Traveler 160 Analyzer. Specimen Blood Performing Organization Address City/[facility] Phone Number [facility] DEPARTMENT OF PATHOLOGY AND [address] [place] [address] [place] [address] GGT (06/18/2019 4:00 AM ACCOUNTS PAYABLE LEAD) Pathologist Sig [facility] GGT 80 (H) 0 - 59 U/L [facility] Specimen Plasma specimen Performing Organization Address [facility] Phone Number [facility] DEPARTMENT OF PATHOLOGY AND [address] [place], [place] [address] [address] [place] [address] US Abdomen Complete (06/17/2019 4:48 PM ACCOUNTS PAYABLE LEAD) Specimen Narrative Performed At EXAM: US ABDOMEN COMPLETE [facility] CLINICAL DATA: 53 years Male Cirrho sis [...] participate in the care of your patient. [facility]-[id number] Procedure Note Interface, Radiology Results Incoming - 06/17/2019 4:59 PM ACCOUNTS PAYABLE LEAD EXAM: US ABDOMEN COMPLETE CLINICAL DATA: 53 [...] participate in the care of your patient. [facility]-[id number] Performing Organization Address City/State/Zipcode Phone Number [facility] [address] [place] [address] [place] Abdominal Doppler (06/17/2019 4:48 PM ACCOUNTS PAYABLE LEAD) Specimen Narrative Performed At EXAMINATION: US ABDOMINAL DOPPLER [facility] CLINICAL HISTORY: rule out portal HTN hx [...] and vein are identified and are patent. [facility]-[id number] Procedure Note Interface, Radiology Results Incoming - 06/17/2019 4:55 PM ACCOUNTS PAYABLE LEAD EXAMINATION: US ABDOMINAL DOPPLER CLINICAL HISTORY: rule [...] and vein are identified and are patent. [facility]-[id number] Performing Organization Address City/State/Zipcode Phone Number [facility] [address] [place] [address] [place] Renal (06/17/2019 2:26 PM ACCOUNTS PAYABLE LEAD) Specimen Narrative Performed At EXAMINATION: US RENAL [facility] CLINICAL HISTORY: Flank pain stone d isease suspected COMPARISON: None. IMPRESSION: The right kidney measures 12 cm in jeanine gth. The left kidney measures 13.9 cm in le ngth. There is no renal mass, stone, cyst, or hydronephrosis . Echogenicity is normal. The urinary bladder is unremarkable. [facility]-[id number] Procedure Note Interface, Radiology Results Incoming - 06/17/2019 2:32 PM ACCOUNTS PAYABLE LEAD EXAMINATION: US RENAL CLINICAL HISTORY: Flank pain stone dis ease suspected COMPARISON: None. IMPRESSION: The right kidney measures 12 cm in juan ramon th. The left kidney measures 13.9 cm in jeanine gth. There is no renal mass, stone, cyst, or hydronephrosis. Echogenicity is normal. The urinary bladder is unremarkable. [facility]-[id number] Performing Organization Address City/[facility]/Zipcode Phone Number [facility] [address] [place] [address] Celiac disease reflexive cascade (06/17/2019 4:53 AM ACCOUNTS PAYABLE LEAD) IgA 449 (H) 68 - 408 mg/dL [facility] Comment: Total IgA is within or higher than established ranges. Tissue Transglutaminase, IgA to follow. REFERENCE INTERVAL: Immunoglobulin A Access complete set of age- and/or gender-specific ref erence intervals for this test in the [facility] Test Di rectory ([facility]). Performed by [facility], [address] [place] [address] [phone] [email or web address], Roberto Almaguer MD, Lab. Director Specimen Serum Narrative Performed At [facility] called with reae back to Yu Kwon/ [facility] at 06/16/2019 [facility] 08:04 by NEFTALY. Performing Organization Address City/[facility]/Zipcode Phone Number [facility] [address] [place] [address] [facility] [address] [place] [address] Tissue transglutaminase Ab, IgA (06/17/2019 4:53 AM ACCOUNTS PAYABLE LEAD) Tissue 1 0 - 3 U/mL [facility] REF transglutaminase Ab, Comment: LAB IgA No [...] sitive predictive value for disease. Performed by [facility], [address] [place] [address] [email or web address], Roberto Almaguer MD, Lab. Director Specimen Serum Narrative Performed At CO2 called with reyousif back to Yu Kwon/ [facility] at 06/16/2019 [facility] 08:04 by NEFTALY. Performing Organization Address City/State/Zipcode Phone Number [facility] [address] [place] [address] [facility] [address] [place] [address] Fecal calprotectin (06/15/2019 4:30 PM ACCOUNTS PAYABLE LEAD) Pathologist Sig nature Fecal calprotectin 57.64 <15.6-120mg/kg [facility] Specimen Blood Performing Organization Address City/State/Zipcode Phone Number [facility] DEPARTMENT OF PATHOLOGY AND [address] [place] [address] GENOMIC MEDICINE [facility] [address] [place] [address] Spirometry, diffusion, lung volumes (06/15/2019 2:29 PM ACCOUNTS PAYABLE LEAD) Pathologist Sig nature FEV1 Pre 2.23 2.81 [...] available. Performing Organization Address City/State/Zipcode Phone Number [facility] [address] [place] [address] Us carotid duplex (06/15/2019 11:31 AM ACCOUNTS PAYABLE LEAD) Specimen Narrative Performed At [facility] Vascular U ltrasound Laboratory Carotid A rtery Duplex Report [address] [place] [address] For quality assurance tester purposes, the categorization of the degree of the stenosis of this exam is based on criteria described i n the IAC carotid stenosis grading white paper( www.intersocietal.org/Va scular) and Thanh Nava., Александр CGrover., et al. Carotid artery stenosis: wagner-scale and Doppler US diagnosis-- Society of Radiologists in Ultrasound Consensus Conference. Radio logy. 2002; 229(2):340-6. Pat.Name: PAOLA KWONG Pat.ID: [id number] .Date: 06/15/2019 Refer.MD: MILTON ELLINGTON MD Exam Time: 11:04:00 AM Study Type:Ca rotid Height: 67in Weight: 212lb BSA: 2.07 m2 Ag e: 1965,53Y Sex: MALE BP: 116/68 Sonogrphr: Suad Greco TRAVIS, RVT Pat. Stat.:Inpatient Room: [address] ol: ED, CPT - 4: 52649 Echo Deysi nt ID:[id number] Order ID: [id number] Reason for Study:Pre-op evaluation History / Clinical:Smoker, [...] Radiology Results In - 2019 8:06 PM [facility] Vascular Ultrasound Laboratory Carotid Artery Dupl ex Report [address] [facility], [place] [address] , [place] [address] For quality assurance tester purposes, the sarah gorization of the degree of the stenosis of this exam is based on criteria described in the IAC carotid stenosis grading white paper( www.intersocietal.org/Vascular) and Thanh Nava., Herbie Fountain, et al. Carotid artery stenosis: wagner-scale and Doppler US diagnosis--Society of Radiologists in Ultrasound Consensus Conference. Radiology. 2003 Nov; 229(2):340-6. Pat.Name: PAOLA KWONG Pat.I D: [id number] St.Date: 06/15/2019 Refer.MD: MILTON ELLINGTON MD Exam Time: 11:04:00 AM Study Type:Carotid Height: 67in Weigh t: 212lb BSA: 2.07 m2 Age: 6 1965,53Y Sex: MALE BP: 116/68 Sonogrphr: Suad Greco RDCS, RVT Pat. Stat.:Inpatient Room: [address] Vol: ED, CPT - 4: 60657 Echo Event ID:[id number] Order ID: [id number] Reason for Study:Pre-op evaluation History / Clinical:Smoker, [...] Organization Address City/State/Zipcode Phone Number [facility] [address] [place] [address] CT Head Wo Contrast (06/14/2019 8:31 PM ACCOUNTS PAYABLE LEAD) Specimen Narrative Performed At EXAM: CT HEAD [...] appropria te moderation of exposure. Automated dose sales and management trainee nology is applied to adjust radiation exposure [...] for further evaluatio n if clinically indicated. [facility]-[id number] Procedure Note [facility], Radiology Results Incoming - 06/14/2019 8:39 PM ACCOUNTS PAYABLE LEAD EXAM: CT HEAD WO CONTRAST CLINICAL HISTORY: [...] ensure appropriate moderation of exposure. Automated dose sales and management trainee nology is applied to adjust radiation exposure [...] for fur ther evaluation if clinically indicated. [facility]-[id number] Performing Organization Address [facility] Phone Number [facility] [address] [place] [address] Gastrointestinal panel (06/14/2019 5:48 AM ACCOUNTS PAYABLE LEAD)Only the most recent of2 results within the time period is included. Pathologist [facility] Gastrointestinal panel Negative for all pathogens tested: [facility] Negative for Salmonella SABIANISM Negative for Campylobacter [facility] Negative for Diarrheagenic E coli/Shigella Negative for [...] Specimen Stool - Nonpreserved Performing Organization Address [facility] Phone Number [facility] DEPARTMENT OF PATHOLOGY AND [address] [place], [place] [address] GENOM[address] [address] Thyroid stimulating hormone (06/14/2019 5:14 AM ACCOUNTS PAYABLE LEAD) Pathologist Sig nature TSH 1.95 0.27 - 4.20 uIU/mL [facility] ITAL Specimen Plasma specimen Performing Organization Address [facility]/State/Zipcode Phone Number [facility] DEPARTMENT OF PATHOLOGY AND [address] [place] [address] [address] [address] T4, free (06/14/2019 5:14 AM ACCOUNTS PAYABLE LEAD) Pathologist Sig nature T4, free 0.8 (L) 0.9 - 1.7 ng/dL [facility] L Specimen Plasma specimen Performing Organization Address City/[facility]/Zipcode Phone Number [facility] DEPARTMENT OF PATHOLOGY AND [address] [place] [address] [address] [address] Hemoglobin A1c (06/14/2019 5:14 AM ACCOUNTS PAYABLE LEAD) Hemoglobin A1C 12.6 (H) 4.0 - 5.6 % [facility] Comment: HOSPITAL HbA1c cutoffs for diagnosing diabetes: [...] 1 diabetes. Specimen Blood Performing Organization Address City/[facility]/Zipcode Phone Number [facility] DEPARTMENT OF PATHOLOGY AND [address] [place] [address] [phone] [address] Lipid panel (06/14/2019 5:14 AM ACCOUNTS PAYABLE LEAD) Cholesterol 177 <200 mg/dL [facility] Triglycerides 407 (H) <150 mg/dL [facility] HDL cholesterol 32 (L) >40 mg/dL [facility] LDL cholesterol 104 (H)Comment: <100 mg/dL [facility] Result obtained by SABIANISM direct [facility] measurement [facility] Comment: SABIANISM Total Cholesterol (mg/dL) HOSPIT AL <200 Desirable [...] mg/dL) Specimen Plasma specimen Performing Organization Address City/[facility] Phone Number [facility] DEPARTMENT OF PATHOLOGY AND [address] [place] [address] [phone] [address] Manual differential (06/14/2019 4:59 AM ACCOUNTS PAYABLE LEAD) Manual differential PERFORMED [facility] Neutrophils 53.0 39.0 - 69.0 % [facility] Lymphocytes 36.0 25.0 - 45.0 % [facility] Monocytes 6.0 0.0 - 10.0 % [facility] Eosinophils 4.0 0.0 - 5.0 % [facility] Basophils 1.0 0.0 - 1.0 % [facility] Metamyelocytes 0 % [facility] Promyelocytes 0 % [facility] Platelet slide review Rebekah adequate [facility] Anisocytosis Moderate [facility] Polychromasia Moderate [facility] Ovalocytes Moderate [facility] Specimen Performing Organization Address [facility] Phone Number [facility] DEPARTMENT OF PATHOLOGY AND [address] [place] [address] [phone] [address] Influenza antigen (06/12/2019 9:15 PM ACCOUNTS PAYABLE LEAD) Influenza antigen Negative for Influenza A/B antigen. [facility] Comment: HOSPITAL Specimen Information Specimen Source: Nares Specimen Site: Right Specimen Nares - Right Performing Organization Address [facility] Phone Number [facility] DEPARTMENT OF PATHOLOGY AND [address] [place] [address] [address] [address] XR Chest 1 Vw Portable (06/12/2019 8:55 PM ACCOUNTS PAYABLE LEAD) Specimen Narrative Performed At EXAMINATION: XR CHEST [...] No acute osseous abnormalities are visua lized. [facility]-[id number] Procedure Note Hm Interface, Radiology Results Incoming - 06/12/2019 9:01 PM ACCOUNTS PAYABLE LEAD EXAMINATION: XR CHEST 1 VW PORTABLE CLINICAL HISTORY: tachy COMPARISON: 03/20/2018 IMPRESSION: No radiographic evidence for acute cardi opulmonary process. Cardiomediastinal silhouette is within n ormal limits of size. No focal or confluent airspace consolida tion is seen on this single AP plane to suggest acute pneumonia. No sizable pleural effusion. No pneumothorax identified. No acute osseous abnormalities are visua lized. [facility]-[id number] Performing Organization Address City/State/Zipcode Phone Number [facility] [address] [place] [address] ECG ED Preliminary Interpretation - Not an Order (06/12/2019 7:50 PM ACCOUNTS PAYABLE LEAD) Narrative Performed At Guillermo Jeffery MD 06/22/2019 10 :44 AM ECG ED Preliminary Interpretation - Not an Order Performed by: Guillermo Jeffery MD Authorized by: Guillermo Jeffery MD ECG reviewed by ED Physician in the abse nce of a client services associate: yes Previous ECG: Previous ECG: Unavailable Interpretation: Interpretation: abnormal Rate: ECG rate: 113 ECG rate assessment: tachycardic Rhythm: Rhythm: sinus tachycardia Ectopy: Ectopy: none QRS: QRS axis: Normal QRS intervals: Normal Conduction: Conduction: abnormal Abnormal conduction: LPFB ST segments: ST segments: Normal Other findings: Other findings: prolonged qTc interval Partial thromboplastin time, activated (06/12/2019 7:49 PM ACCOUNTS PAYABLE LEAD) PTT 28.1 23.0 - 36.0 [facility] Comment: sec HOSPITAL PTT therapeutic range for unfractionated heparin is 61.0-112.0 seconds which corresponds to Anti-Xa 0.3-0.7 U/ml. Specimen Blood Performing Organization Address City/State/Zipcode Phone Number [facility] DEPARTMENT OF PATHOLOGY AND [address] [place], [place] [address] [address] B natriuretic peptide (06/12/2019 7:49 PM ACCOUNTS PAYABLE LEAD) Pathologist Sig nature BNP 53 0 - 100 pg/mL [facility] Specimen Blood Narrative Performed At GLU results called to and read back by [facility] DEPARTMEN T OF PATHOLOGY AND GENOMIC TOSHIA PEREZ RN LIZBETH (name/location) MEDICINE at _ 06/12/2019 20:51 BY Performing Organization Address City/State/Zipcode Phone Number [facility] DEPARTMENT OF PATHOLOGY AND [address] [place] [address] [phone] [address] Comprehensive metabolic panel (06/12/2019 7:49 PM ACCOUNTS PAYABLE LEAD) Sodium 137 135 - 148 [facility] mEq/L [facility] Potassium 3.9 3.5 - 5.0 [facility] mEq/L [facility] Chloride 103 98 - 112 mEq/L [facility] CO2 19 (L) 24 - 31 mEq/L [facility] Anion gap 15@ANIO 7 - 15 mEq/L [facility] BUN 25 (H) 6 - 20 mg/dL [facility] Creatinine 2.04 (H) 0.70 - 1.20 [facility] mg/dL HOSPITAL Glucose 519 (HH) 65 - 99 mg/dL [facility] Calcium 10.1 8.3 - 10.2 [facility] mg/dL HOSPITAL Protein 8.4 (H) 6.3 - 8.3 g/dL [facility] Comment: HOSPITAL Qrtsrkz8718.6-7.0 g/dL 1 obrs7381.4-7.6 g/dL 7 months-1wwep818.1-7.3 g/dL 1-2 aijpv382.6-7.5 g/dL >3 mjsso802.0-8.0 g/dL 18-9509594.3-8.3 g/dL Albumin 3.1 (L) 3.5 - 5.0 g/dL [facility] A/G ratio 0.6 (L) 0.7 - 3.8 [facility] Alkaline phosphatase 166 (H) 40 - 129 U/L [facility] AST 23 10 - 50 U/L [facility] ALT 24 5 - 50 U/L [facility] Total bilirubin 0.3 0.0 - 1.2 [facility] mg/dL HOSPITAL Specimen Plasma specimen Performing Organization Address City/State/Zipcode Phone Number [facility] DEPARTMENT OF PATHOLOGY AND [address] [place] [address] GENOMIC MEDICINE [facility] [address] [place] [address] after 11/20/2018 Insurance Payer Benefit Plan / Subscriber ID Effective Dates Phone Addre ss Type Group Joinity [facility] xxxxxxxxxxxx 2019-[employer] CHOICE EXCHANGE EXCHANGE t [employer] Advance Directives For more information, please contact: [phone] Type Date Recorded 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
--- OUTSIDE RECORDS SUMMARY | 2019-11-21 06:06 | XMS REPORT | Clinical Summary ---
:1965 Author Organization [facility] Address [address] [place] [address] Care Team Providers Name Role Phone MD [...] diab etes mellitus with hyperglycemia, unspecified whether usp insulin use (HCC); Jessica Cruz MD Type 2 diabetes mellitus with hyperglyce cristóbal, without long-term current use of insulin (HCC); Jude Garciaash Essential hy pertension; D Other forms of angina pectoris (HCC) Julia Chavis MD 01/06/2019 Travel after 11/20/2018 Family History Medical History Relation [...] 442 ms QTC Calculation(Bazett) 480 ms P Harwick 29 degrees R Harwick 88 degrees T Harwick 27 degrees Normal sinus rhythm Right bundle [...] i n the results section . after 11/20/2018 Results RHYTHM STRIP - SCAN (01/12/2019 3:42 PM CDT) Narrative Performed At This result has an attachment that is no t available. POC-Glucose meter (01/11/2019 12:15 PM CDT)Only the most recent of31 results within the time period is included. POC-Glucose Meter 119 (H)Comment: TESTED AT 70 - 110 mg/dL [facility] [address] [facility] [id number] Specimen Blood Performing Organization Address City/State/Zipcode Phone Number [address] [phone] CENTER CBC with platelet count + automated diff (01/11/2019 5:03 AM CDT)Only the most recent of6 resultswithin the time period is included. WBC 4.1 3.5 - 10.5 K/L [facility] RBC 3.72 (L) 4.63 - 6.08 M/L [facility] Hemoglobin 11.6 (L) 13.7 - 17.5 GM/DL [facility] Hematocrit 33.6 (L) 40.1 - 51.0 % [facility] MCV 90.3 79.0 - 92.2 fL [facility] MCH 31.2 25.7 - 32.2 pg [facility] MCHC 34.5 32.3 - 36.5 GM/DL [facility] RDW 13.7 11.6 - 14.4 % [facility] Platelets 170 150 - 450 K/CU MM [facility] MPV 11.8 9.4 - 12.4 fL [facility] nRBC 0 0 - 0 /100 WBC [facility] % Neutros 53 % [facility] % Lymphs 32 % [facility] % Monos 7 % [facility] % Eos 6 % [facility] % Baso 1 % [facility] # Neutros 2.17 1.78 - 5.38 K/L [facility] # Lymphs 1.31 (L) 1.32 - 3.57 K/L [facility] # Monos 0.29 (L) 0.30 - 0.82 K/L [facility] # Eos 0.26 0.04 - 0.54 K/L [facility] # Baso 0.03 0.01 - 0.08 K/L [facility] Immature Granulocytes-Relative 1 0 - 1 % C HI [facility] Specimen Blood Performing Organization Address City/State/Zipcode Phone Number [facility] [address] [place] [address] [place] Basic Metabolic Panel (01/11/2019 5:03 AM CDT)Only the most recent of6 results within the time period is included. Sodium 139 136 - 145 meq/L [facility] Potassium 4.5 3.5 - 5.1 meq/L [facility] Chloride 109 (H) 98 - 107 meq/L [facility] CO2 23 22 - 29 meq/L [facility] BUN 30 (H) 7 - 21 mg/dL [facility] Creatinine 1.87 (H) 0.57 - 1.25 mg/dL [facility] Glucose 219 (H) 70 - 105 mg/dL [facility] Calcium 8.9 8.4 - 10.2 mg/dL [facility] EGFR 38Comment: ESTIMATED GFR IS mL/min/1.73 sq m [facility] NOT ACCURATE CREATININE [facility] CLEARANCE IN PREDICTING GLOMERULAR FILTRATION RATE. ESTIMATED GFR IS NOT APPLICABLE FOR DIALYSIS PATIENTS. Specimen Blood Performing Organization Address City/State/Zipcode Phone Number [facility] [address] [place] [address] [place] [address] brain without IV contrast (01/10/2019 11:31 AM CDT)Only the most recent of2 resultswithin the time period is included. Specimen Narrative Performed At FINAL REPORT [facility] CT, BRAIN, WITHOUT CONTRAST INDICATION: Subdural [...] 4:47:25 Performing Organization Address City/State/Zipcode Phone Number [facility] CT chest without IV contrast (01/10/2019 11:31 AM CDT) Specimen Narrative Performed At FINAL REPORT [facility] [employer] TECHNIQUE: CT scan of the chest WITHOUT [...] MD Report Verified Date/Time:01/10/2019 18:24:57 Reading Location: [facility] B1 C013Y CT Body R eading Room [...] Verified Date/Time: 01/10/2019 1 8:24:57 Reading Location: [facility] B1 C013Y CT Body R eading Room Performing Organization Address City/State/Zipcode Phone Number [facility] D-dimer (01/10/2019 11:00 AM CDT) D-Dimer, Quant 2.14 (H) <0.50 MG/L FEU [facility] Specimen Blood Narrative Performed At Intended Use: The D-Dimer Assay can be used [facility] to aid in the diagnosis of Deep Vein Thrombosis (DVT) and Pulmonary Embolism Disease (PED). In patients with low pre-test probability, various studies concerning STA Liatest D-dimer test have reported that with a cutoff value of 0.50 MG/L FEU, the Negative Predictive Value (NPV) regarding the exclusion of thrombosis is within 95-100% range. Performing Organization Address City/State/Zipcode Phone Number [address] [address] CENTER XR chest 1 view portable / bedside (01/10/2019 7:16 AM CDT)Only the most recent of2 resultswithin the time period is included. Specimen Narrative Performed At FINAL REPORT [facility] Chest, AP view. History: Chest pain. Comparison: 01/06/2019. Discussion:The cardiomediastinal maria luz houette and pulmonary vasculature are within normal limits. Th e lungs are clear without evidence of consolidation or effusion. There are no acute osseous abnormalities. The soft tissues are unre markable. IMPRESSION: No acute cardiopulmonary abnormality. Signed: Britney Schwab MD Report Verified Date/Time:01/10/2019 08:17:19 Reading Location: [facility] C013 Ortho Con sult Reading Room Procedure [...] Verified Date/Time: 01/10/2019 0 8:17:19 Reading Location: [facility] C013X Ortho Con sult Reading Room Performing Organization Address City/State/Zipcode Phone Number [facility] [employer] ECG 12 lead (01/10/2019 6:30 AM CDT)Only the most recent of5 resultswithin the time period is included. Specimen Narrative Performed At Ventricular Rate 77 BPM GE MUSE Atrial Rate 77 BPM P-R Interval 138 ms QRS Duration 144 ms Q-T Interval 442 ms QTC Calculation(Bazett) 500 ms P Harwick 30 degrees R Harwick 41 degrees T Harwick 30 degrees Normal sinus rhythm Limb lead [...] 442 ms QTC Calculation(Bazett) 500 ms P Harwick 30 degrees R Harwick 41 degrees T Harwick 30 degrees Normal sinus rhythm Limb lead misplacement Right bundle branch block Nonspecific T wave abnormality Prolonged QT Abnormal ECG When compared with ECG of 10-JAN-2019 06 :01, Limb leads are now misplaced Confirmed by MD COOK YOCHAI ([id number]) on 01/12/2019 2:04:04 PM Performing Organization Address City/[facility] Phone Number [email or web address] Troponin I (01/10/2019 6:11 AM CDT)Only the most recent of7 resultswithin the time period is included. Troponin I 0.02 0.00 - 0.03 ng/mL [facility] Specimen Blood Narrative Performed At Troponin I (TnI) levels must be interpreted [facility] in the context of the presenting symptoms [...] tachyarrhythmia. Performing Organization Address City/State/Zipcode Phone Number [address] [address] CENTER B-type Natriuretic Factor (BNP) (01/10/2019 6:11 AM CDT)Only the most recent of 2 resultswithin the time period is included. BNP 130 (H) 0 - 100 pg/mL [facility] Specimen Blood Performing Organization Address City/[facility]/Zipcode Phone Number [address] [address] CENTER aPTT (01/09/2019 4:35 AM CDT)Only the most recent of8 resultswithin the time period is included. PTT 35.0 22.5 - 36.0 seconds [facility] Specimen Blood Performing Organization Address [facility] Phone Number [address] [address] [place] ECHOCARDIOGRAM REPORT - SCAN (01/08/2019 9:20 PM CDT) Narrative Performed At This result has an attachment that is no t available. PT/aPTT (01/08/2019 4:03 PM CDT) Protime 13.4 11.9 - 14.2 seconds [facility] INR 1.1 <=5.9 [facility] PTT 32.0 22.5 - 36.0 seconds [facility] Specimen Blood Narrative Performed At Effective 09/23/2018: PT Reference Range [facility] Change New: 11.9-14.2Previous: 11.7-14.7 RECOMMENDED COUMADIN/WARFARIN INR THERAPY RANGES STANDARD DOSE: 2.0-3.0Includes: PROPHYLAXIS for venous thrombosis, systemic embolization; TREATMENT for venous thrombosis and/or pulmonary embolus. HIGH RISK: Target INR is 2.5-3.5 for patients wiht mechanical heart valves. Performing Organization Address City/State/Zipcode Phone Number [address] [address] [place] ECHO W CONTRAST & DOPPLER (01/07/2019 4:16 PM CDT) Ejection Fraction [facility] ECHO HEAR TLAB MKCKESSON CPACS Specimen Narrative Performed At Transthoracic Echocardiography Report (T TE) 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[employer] Leon Fragoso [facility] Learning And Development Associate Tori Hillspreting Willard Healy PhysicianMD Procedure Type [...] MAGED BOND Gen carmine Male Visit Number [id number] Rac e Unknown [facility] Number [id number] Number Date of 1965 Ref erring Yvette Mccullough Shona Mckenzie Age 53 year(s) Son nav Fragoso RDCS Learning And Development Associate Tori Chaudhari erpreting Shona Whitmore MD Procedure [...] T CI: 2.47 l/min/m^2 Performing Organization Address City/[facility] Phone Number [facility] ECHO HEARTLAB MKCKESSON CPACS Phosphorus (01/07/2019 6:01 AM CDT) Phosphorus 2.5 2.3 - 4.7 mg/dL [facility] Specimen Blood Narrative Performed At Once on admission and Daily AM afterward s [facility] Once on admission and Daily AM afterward s Once on admission and Daily AM afterwards Performing Organization Address City/State/Zipcode Phone Number [facility] [address] [place] [address] CENTER Magnesium (01/07/2019 6:01 AM CDT) Magnesium 2.2 1.6 - 2.6 mg/dL [facility] Specimen Blood Narrative Performed At Once on admission and Daily AM afterward s [facility] Once on admission and Daily AM afterward s Once on admission and Daily AM afterwards Performing Organization Address [facility] Phone Number [address] [address] [place] Prothrombin time/INR (01/06/2019 7:15 PM CDT) Protime 11.4 (L) 11.9 - 14.2 seconds [facility] INR 0.9 <=5.9 [facility] Specimen Blood Narrative Performed At Effective 09/23/2018: PT Reference Range [facility] Change New: 11.9-14.2Previous: 11.7-14.7 RECOMMENDED COUMADIN/WARFARIN INR THERAPY RANGES STANDARD DOSE: 2.0-3.0Includes: PROPHYLAXIS for venous thrombosis, systemic embolization; TREATMENT for venous thrombosis and/or pulmonary embolus. HIGH RISK: Target INR is 2.5-3.5 for patients wiht mechanical heart valves. Performing Organization Address [facility] Phone Number [address] [address] [place] Hemoglobin A1c (01/06/2019 7:15 PM CDT) Hemoglobin A1C 11.9 (H) 4.3 - 6.1 % [facility] Specimen Blood Performing Organization Address [facility] Phone Number [address] [address] [place] Hepatic function panel (01/06/2019 7:15 PM CDT) Protein, Total 6.3Comment: Specimen 6.0 - 8.3 gm/dL [facility] slightly hemolyzed [facility] Albumin 2.8 (L)Comment: Specimen 3.5 - 5.0 g/dL [facility] slightly hemolyzed [facility] Total Bilirubin 0.4Comment: Specimen 0.2 - 1.2 mg/dL [facility] slightly hemolyzed [facility] Bilirubin, Direct 0.1Comment: Specimen 0.1 - 0.5 mg/dL [facility] slightly hemolyzed [facility] Alkaline Phosphatase 104 40 - 150 U/L [facility] AST 29Comment: Specimen 5 - 34 U/L [facility] slightly hemolyzed [facility] ALT 23Comment: Specimen 6 - 55 U/L [facility] slightly hemolyzed [facility] Specimen Blood Narrative Performed At Specimen moderately lipemic [facility] Performing Organization Address City/State/Zipcode Phone Number [facility] [address] [place] [address] CENTER after 11/20/2018 Advance Directives For more information, please contact:[address] [phone] Code Status Date Activated Date Inactivated Comments Full Code 01/06/2019 5:51 PM 01/11/2019 7:13 PM This code status was determined by: Patient
--- OUTSIDE RECORDS SUMMARY | 2019-11-21 06:18 | XMS REPORT | Continuity of Care Document ---
:1965 Author Organization [facility] t Address [address] [place] [address] Care Team Providers Name Role Phone Attjalen BOSS Primary Care Physician Doctor Unassigned, Name Attending Clinician Unavailable Erick BOSS Attending Clinician Mario LEACH Attending Clinician Unavailable Ryan Jeffery MD Attending Clinician Chandana BOSS OTad Attending Clinician Lupe LEACH Attending Clinician Unavailable Maico Tyler MD Attending Clinician Serafin Whitehead MD Attending Clinician Farhad CORONA Attending Clinician Unavailable Hilario LAYTON, L Attending Clinician Ev Mock Attending Clinician Noble Crawford MD Attending Clinician Robert BOSS I. Attending Clinician Tanvir Hammond MD, Anthony Attending Clinician [phone] Erica Garcia Attending Clinician Odette Chavis MD Attending Clinician NOBLE CRAWFORD Attending Clinician Unavailable CHANDANA Admitting Clinician Unavailable NOBLE CRAWFORD Admitting Clinician Unavailable Payers Payer Name Policy Type Policy Number Effective Date Expiration Date [facility] xxxxxxxxxxxx 2019 [place] CHOICE 00:00:00 [facility]x /29/2019-Pr esentExchange Problems Condition Condition Condition Status Onset Resolution Last Treating Co mments Source Name Details Category Date Date Treatment Clinician Date Diabetic Diabetic Disease Active [place] peripheral peripheral 2- Me thodi neuropathy neuropathy 00:00: st 00 Chronic Chronic Disease Active [place] kidney kidney 2-19 [facility] disease, disease, 00:00: st stage III stage III 00 (moderate) (moderate) Diarrhea, Diarrhea, Disease Active Ferdinand ston unspecifie unspecifie -19 Me [facility]odi d d 00:00: st 00 Edema of Edema of Disease Active [place] left orbit left orbit 06-16 Me thodi 00:00: st 00 Hyperglyce Hyperglyce Disease Active H 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 00:00: st mellitus mellitus 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 0-13 Methodi 00:00: st 00 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 [place] 0-13 Methodi 00:00: st 00 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 013 Method i posterior posterior 00:00: st communicat communicat 00 ing artery ing artery Chest pain Chest pain Disease Active H mars 12-01 Methodi 00:00: st 00 Essential Essential Disease Active Ferdinand ston hypertensi hypertensi 12-01 Me thodi on on 00:00: st 00 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 12-01 [facility] disease disease 00:00: st involving involving 00 nez perce nez perce coronary coronary artery of artery of nez perce nez perce heart with heart with angina angina pectoris pectoris Cirrhosis Cirrhosis Disease Active Ferdinand ston 12-01 Methodi 00:00: st 00 Hypertrigl Hypertrigl Disease Active H mars yceridemia yceridemia 12-01 Me thodi 00:00: st 00 Depression Depression Disease Active H mars 12-01 Methodi 00:00: st 00 Allergies, Adverse Reactions, Alerts Allergy Allergy Status Severity Reaction(s) Onset Inactive Treating Comm ents Source Name Type Date Date Clinician Ketorola Propensi Active Hallucinatio [facility] ty to ns 2-15 Methodi adverse 00:00: st reaction 00 s to drug Codeine Drug Active Hives Also [facility] Allergy -11 [facility] - 00:00: headaches Medical [...] s to drug Codeine Propensi Active Hives [place] ty to 8-06 Methodi adverse 00:00: st reaction 00 s to drug Hydrocod Propensi Active Hives, [place] one-Acet ty to Itching 2-28 Methodi aminophe adverse 00:00: st n reaction 00 s to drug Family History Family Member Diagnosis Comments Start Date Stop Date Source Natural father No Known Problem [facility] Natural father Diabetes [place] [facility] Natural mother Heart disease [facility] Natural mother Hypertension [facility] Natural mother Diabetes [place] [facility] Natural mother Hypertension [place] Yazidism Social History Social Habit Start Date Stop Date Quantity Comments Source History SDMN [facility] - Alcohol Std Drinks [facility] History SDMN [facility] - Alcohol Binge Medical [facility] History of tobacco Cigarette Smoker [place] use Yazidism Sex Assigned At [place] Y[facility]ism Cigarettes smoked 2019-07-06 2019-07-06 [place] current (pack per 00:00:00 00:00:[address] day) - Reported Alcohol intake 2019-07-06 2019-07-06 Current [place] 00:00:00 00:00:00 non-drinker of Yazidism alcohol (finding) History SDMN 2019-01-06 2019-01-[address] [facility] - Alcohol Frequency 00:00:00 00:00:00 [facility] Tobacco Comment 2019-01-06 2019-01-06 [facility]00:00 day, started Medical [facility] er again 3 years ago Smoking Status Start Date Stop Date Source Current every day smoker 2019-07-06 00:00:00 Ferdinand Johnson Medications Ordered Filled Start Stop Current Ordering Indication Dosage Frequency Signature Comments Components Source Medication Medication Date Date Medication? Clinician (SIG) Name Name insulin 2020- No 6U QD Inject 6 [place] lispro 3-21 04-20 Units [facility] (HumaLOG) 00:00: 23:[address] 100 unit/mL 00 :00 skin daily injection with breakfast for 30 days. pantoprazol 2020- No 40mg QD Take 1 Ferdinand ston e 3-21 04-20 tablet (40 [facility] (PROTONIX) [...] 17:37: 00:[address] 04 :00 lisinopril 2020- No 20mg QD Take 20 mg [place] (PRINIVIL,Z -15 07-20 by mouth Met hodi ESTRIL) 20 17:37: 00:[address] mg tablet 04 :00 clopidogrel 2019- No 75mg QD Take 75 mg [place] (PLAVIX) 75 -15 07-20 by mouth Met hodi mg tablet 17:37: 00:[address] 04 :00 gabapentin 2020- No 1200mg QD Take 1,200 [place] (NEURONTIN) - 03-20 mg by Method i 300 mg 17:37: 00:[address] capsule 04 :00 every evening. ibuprofen 2019- No 400mg Q6H Take 400 [place] (ADVIL,MOTR -20 03-20 mg by Method i IN) 200 MG 17:37: 00:[address] tablet 04 :00 every 6 (six) hours as needed for mild pain. aspirin 325 2019- No 325mg Take 325 [place] MG tablet 07-15-20 mg by Methodi 17:37: 00:[address] 04 :00 daily. atenolol 2020- No 50mg QD Take 50 mg [place] (TENORMIN) 07-15-20 by mouth Meth susi 50 MG 12:21: 00:[address] tablet 02 :00 atenoloL 2019- 2020- No 50mg QD Take 1 [place] (TENORMIN) 07-15-19 tablet (50 Me thodi 50 MG 00:00: 23:59 mg total) st tablet 00 :00 by mouth daily for 30 days. citalopram 2020- No 20mg QD Take 1 [place] (CeleXA) 20 -15 08-19 tablet (20 M ethodi MG tablet 00:00: 23:59 mg total) st 00 :00 by mouth daily for 30 days. gabapentin 2019- 2020- No 300mg QD Take 0.5 [place] (NEURONTIN) -20 -19 tablets Meth susi 600 mg 00:00: 23:59 ([address] tablet 00 :00 total) by mouth nightly for 30 days. simvastatin 2020- No 40mg QD Take 0.5 [place] (ZOCOR) 80 -15 08- tablets Metho di MG tablet 00:00: 23:59 ([address] 00 :00 total) by mouth nightly for 30 days. brimonidine 2019-2019- No 1[drp] Q.[id number] Administer [place] (ALPHAGAN) -15 08- [id number] 1 drop Methodi 0.15 % 00:00: 23:[address] ophthalmic 00 :00 left eye solution every 8 (eight) hours for 30 days. calcium 2019-2019- No 667mg Q.[id number] Take 1 [place] acetate,tate -20 - [id number] capsule Methodi sphat bind, 00:00: 23:59 3D ([address] (PHOSLO) 00 :00 total) by 667 mg mouth 3 capsule (three) times a day with meals for 30 days. dorzolamide 2019-2019- No 1[drp] Q.5D Administer [place] -timolol 07-15 1 drop [facility] (COSOPT) 00:00: 23:[address] 2-0.5 % 00 :00 left eye 2 dropperette (two) times a day for 30 days. insulin 2019-0 2020- No 5U QD Inject 5 [place] lispro 3-20 -19 Units [facility] (HumaLOG) 00:00: 23:[address] 100 unit/mL 00 :00 skin injection nightly for 30 days. insulin 2019-0 2020- No 6U QD Inject 6 [place] [...] before lunch for 30 days. insulin NPH 2019- 2020- No 20U QD Inject 20 [place] (HumuLIN-N) 3-20 -19 Units Method i 100 unit/mL 00:00: 23:[address] injection 00 :00 skin daily for 30 days. isosorbide 2019-0 2020- No 60mg QD Take 1 [place] mononitrate 07-15 tablet (60 M ethodi (IMDUR) 60 00:00: 23:59 mg total) s t MG 24 hr 00 :00 by mouth tablet daily for 30 days. latanoprost 2019- 2020- No 1[drp] QD Administer [place] (XALATAN) 07-15 1 drop Methodi 0.005 % [...] 30 days. methocarbam 2019- 2020- No 500mg [id number] Take 1 [place] oL 07-15 [id number] tablet Method i (ROBAXIN) 00:00: 23:59 3D ([address] 500 MG 00 :00 total) by tablet mouth 3 (three) times a day as needed for muscle spasms for up to 30 days. nystatin 2019-0 2020- No Q.5D Apply [place] (MYCOSTATIN 07-15 topically Me thodi ) 100,000 00:00: 23:59 2 (two) st unit/gram 00 :00 times a powder day for 30 days. polyethylen 2019- 2020- No 17g QD Take 17 g [place] e glycol 07-15 by mouth Method i (MIRALAX) 00:00: 23:[address] 17 gram 00 :00 30 days. packet riFAXimin 2019- 2020- No 550mg Q.5D Take 1 [place] (XIFAXAN) 07-15 tablet Methodi 550 mg 00:00: 23:59 ([address] tablet 00 :00 total) by mouth 2 (two) times a day for 30 days. sevelamer 2019-0 2020- No 800mg Q.[id number] Take 1 [place] (RENVELA) 07-15 [id number] tablet M ethodi 800 mg 00:00: 23:59 3D ([address] tablet 00 :00 total) by mouth 3 (three) times a day with meals for 30 days. mineral 2020- No QD Administer Ferdinand ston oil/petrola 07-1519 to both Meth susi john,white 00:00: 23:[address] (artificial 00 :00 nightly as tears) needed ointment (itching/d ry eyes) for up to 30 days. insulin 2019- No 3U QD Inject 3 [place] lispro 07-15- Units [facility] (HumaLOG) 00:00: 23:[address] 100 unit/mL 00 :00 skin injection nightly for 30 days. metoprolol 2018- Yes 50mg QD Take 1 [facility] (TOPROL-XL) 9-17 tablet (50 Tabby kes - 50 MG 24 hr 00:00: mg total) M edical tablet 00 by mouth Center daily. furosemide 2019- No 40mg Q.5D Take [address] (LASIX) 40 9-16 09-16 by mouth 2 Tabby kes - MG tablet 14:22: 00:00 (two) Medica l 46 :00 times Center daily. furosemide 2018-0 Yes 20mg QD Take 1 [facility] (LASIX) 20 9-16 tablet (20 Doris es - MG tablet 00:00: mg total) Med ical 00 by mouth Center daily. ranolazine 2019-0 Yes 500mg Q.5D Take [address] (RANEXA) 9-16 tablet [facility] - 500 MG 12 00:00: (500 mg Medic al hr tablet 00 total) by Cente r mouth 2 (two) times daily. travoprost 2019-0 Yes 1[drp] QD Place [address] (TRAVATAN 9-12 drop into [facility] - Z) 0.004 % 12:57: both eyes Me dical Drop 59 nightly. Center ophthalmic drops clopidogrel 2018-0 Yes 75mg QD Take [address] (PLAVIX) 75 9-11 by mouth Luke s - mg tablet 18:07: daily. Medica l 00 [place] simvastatin 2019-0 Yes 80mg QD Take [address] (ZOCOR) 80 9-11 by mouth [facility] - MG tablet 18:07: daily. Medica l 00 [place] spironolact 2019-0 Yes 25mg QD Take 25 [...] MG tablet 18:06: daily. Medica l 59 [place] gabapentin Yes 300mg QD Take [address] (NEURONTIN) 9-11 mg by [facility] - 300 MG 18:06: mouth Medical capsule 59 daily. [place] ergocalcife 2017-04- No [id number] Q7D Take 1 [place] rol 06-05 [...] 00:[address] tablet 00 :00 citalopram 2017-0 2020- No 20mg QD Take 20 mg [place] (CeleXA) 20 8-20 by mouth Met hodi MG tablet 00:00: 00:[address] 00 :00 traMADol Yes 50mg Q6H Take 50 mg Ferdinand ston (ULTRAM) 50 4-28 by mouth Meth susi mg tablet 00:00: every 6 st 00 (six) hours as needed. simvastatin 2015-04- No 40mg QD Take 40 mg [place] (ZOCOR) 80 0-24 03-20 by mouth Meth susi MG tablet 00:00: 00:[address] 00 :00 Vital Signs Vital Name Observation Time Observation Value Comments Source Systolic blood 2019-07-16 12:27:46 160 mm[Hg] Ismaelto n Yazidism pressure Diastolic blood 2019-07-16 12:27:46 80 mm[Hg] [place] on Yazidism pressure Heart rate 2019-07-16 12:27:46 64 /min [place] [facility] Body temperature 2019-07-16 12:27:46 36.61 Yesi [facility] ton Yazidism Respiratory rate 2019-07-16 12:27:46 18 /min [facility] ton Yazidism Oxygen saturation in 2019-07-16 12:27:46 100 /min [facility]ter[facility] blood by Pulse oximetry Body height 2019-07-06 13:11:00 170.2 cm [place] [facility] Body weight 2019-07-06 13:11:00 96.163 kg [place] [facility] BMI 2019-07-06 13:11:00 33.20 kg/m2 [facility] Systolic blood 2019-01-11 12:30:00 136 mm[Hg] [facility] Diastolic blood 2019-01-11 12:30:00 71 mm[Hg] [facility] Heart rate 2019-01-11 12:30:00 80 /min [facility] Body temperature 2019-01-11 12:30:00 36 Yesi [facility] Respiratory rate 2019-01-11 12:30:00 18 /min [facility] Oxygen saturation in 2019-01-11 12:30:00 95 /min [facility] - Arterial blood by Medical Ce nter Pulse oximetry Body height 2019-01-06 17:30:00 170.2 cm [facility] Body weight Measured 2019-01-06 17:30:00 102.967 kg [facility] BMI 2019-01-06 17:30:00 35.55 kg/m2 [facility] Procedures Procedure Date / Time Performing Clinician [...] Wright ESTIMATED GFR 2019-07-15 05:30:00 Andrews Wright Me thodist POC GLUCOSE 2019-07-14 21:08:00 Milton Ellington POC GLUCOSE 2019-07-14 16:55:00 Milton Ellington POC GLUCOSE 2019-07-14 13:49:00 Milton Ellington POC GLUCOSE 2019-07-14 11:48:00 Milton Ellington HEMODIALYSIS 2019-07-14 09:13:12 Yunier Stephens ethodist Wiley POC GLUCOSE 2019-07-14 08:13:00 Milton Ellington BASIC METABOLIC PANEL 2019-07-14 05:10:00 Angelo Yunier hernández Yazidism [facility] MAGNESIUM LEVEL 2019-07-14 05:10:00 Angelo Yunier Lefty [place] ethodist Wiley PHOSPHORUS LEVEL 2019-07-14 05:10:00 Angelo Yunier Olea Yazidism Wiley HC COMPLETE BLD COUNT 2019-07-14 05:10:00 Tani StephensHenry hernández Yazidism W/AUTO DIFF [facility] ESTIMATED GFR 2019-07-14 05:10:00 Angelo Yunier Lefty [place] ethodist Wiley POC GLUCOSE 2019-07-14 02:44:00 Milton Ellington POC GLUCOSE 2019-07-13 21:27:00 Milton Ellington POC GLUCOSE 2019-07-13 16:22:00 Milton Ellington POC GLUCOSE 2019-07-13 13:08:00 Milton Ellington Yazidism POC GLUCOSE 2019-07-13 07:55:00 Milton Ellington BASIC METABOLIC PANEL 2019-07-13 03:25:00 Angelo Yunier hernández Yazidism [facility] MAGNESIUM LEVEL 2019-07-13 03:25:00 Angelo Yunier Olea [facility] ethodist Wiley PHOSPHORUS LEVEL 2019-07-13 03:25:00 Yunier Stephens Wiley ESTIMATED GFR 2019-07-13 03:25:00 Angelo Yunier Lefty [place] ethodist Wiley POC GLUCOSE 2019-07-12 21:00:00 Milton Ellingtonist POC GLUCOSE 2019-07-12 17:06:00 Milton Ellington Yazidism POC GLUCOSE 2019-07-12 16:06:00 Milton Ellingtonist POC GLUCOSE 2019-07-12 14:25:00 Milton Ellington POC GLUCOSE 2019-07-12 12:07:00 Milton Ellington HEMODIALYSIS 2019-07-12 08:45:38 Angelo Yunier [place] ethodist Wiley POC GLUCOSE 2019-07-12 08:44:00 Milton Ellington BASIC METABOLIC PANEL 2019-07-12 04:00:00 Yunier Stephens Yazidism [facility] MAGNESIUM LEVEL 2019-07-12 04:00:00 Yunier Stephens ethodist Wiley PHOSPHORUS LEVEL 2019-07-12 04:00:00 Yunier Stephens Wiley ESTIMATED GFR 2019-07-12 04:00:00 Yunier Stephens ethodist Wiley POC GLUCOSE 2019-07-11 21:23:00 Milton Ellington POC GLUCOSE 2019-07-11 16:56:00 Milton Ellington POC GLUCOSE 2019-07-11 16:31:00 Milton Ellington POC GLUCOSE 2019-07-11 11:23:[address] CHEST WO CONTRAST 2019-07-11 09:40:15 Raj Moss Yoandy POC GLUCOSE 2019-07-11 08:29:00 Milton Ellington HC COMPLETE BLD COUNT 2019-07-11 05:45:00 Yunier Stephens Yazidism W/AUTO DIFF Wiley BASIC METABOLIC PANEL 2019-07-11 04:00:00 Yunier Stephens Yazidism [facility] MAGNESIUM LEVEL 2019-07-11 04:00:00 Yunier Stephens ethodist Wiley PHOSPHORUS LEVEL 2019-07-11 04:00:00 Yunier Stephens Wiley ESTIMATED GFR 2019-07-11 04:00:00 Yunier Stephens ethodist Wiley POC GLUCOSE 2019-07-11 00:11:00 Milton Ellington POC GLUCOSE 2019-07-10 22:12:00 Milton Ellington POC GLUCOSE 2019-07-10 17:24:00 Milton Ellington BASIC METABOLIC PANEL 2019-07-10 13:40:00 Yunier Stephens Yazidism Wiley MAGNESIUM LEVEL 2019-07-10 13:40:00 Yunier Stephens ethodist Wiley PHOSPHORUS LEVEL 2019-07-10 13:40:00 StephensYunier Wiley HC COMPLETE BLD COUNT 2019-07-10 13:40:00 Yunier Stephens W/AUTO DIFF Wiley FERRITIN LEVEL 2019-07-10 13:40:00 StephensYunier [facility] ethodist Wiley TOTAL IRON BINDING CAPACITY 2019-07-10 13:40:00 Tim Stephens Wiley ESTIMATED GFR 2019-07-10 13:40:00 StephensYunier [facility] ethodist Wiley POC GLUCOSE 2019-07-10 12:34:00 Milton Ellington HEMODIALYSIS 2019-07-10 11:22:47 Stephens, Yunier [place] ethodist Wiley POC GLUCOSE 2019-07-10 08:16:00 Milton Ellington POC GLUCOSE 2019-07-09 21:45:00 Milton Ellington POC GLUCOSE 2019-07-09 16:49:00 Milton Ellington FL MODIFIED BARIUM SWALLOW 2019-07-09 13:51:35 Raj Moss Yoandy POC GLUCOSE 2019-07-09 12:22:00 Milton Ellington POC GLUCOSE 2019-07-09 08:03:00 Milton Ellington BASIC METABOLIC PANEL 2019-07-09 04:00:00 Yunier Stephens Wiley MAGNESIUM LEVEL 2019-07-09 04:00:00 StephensYunier ethodist Wiley PHOSPHORUS LEVEL 2019-07-09 04:00:00 Yunier Stephens Wiley ESTIMATED GFR 2019-07-09 04:00:00 Yunier Stephens ethodist Wiley POC GLUCOSE 2019-07-08 21:16:00 Milton Ellington POC GLUCOSE 2019-07-08 16:19:00 Milton Ellington POC GLUCOSE 2019-07-08 13:42:00 Milton Ellington POC GLUCOSE 2019-07-08 07:57:00 Milton Ellington HEPATIC FUNCTION PANEL 2019-07-08 04:00:00 Yris Lagos Yazidism BASIC METABOLIC PANEL 2019-07-08 04:00:00 Yunier Stephens Yazidism Wiley MAGNESIUM LEVEL 2019-07-08 04:00:00 Yunier Stephens ethodist Wiley PHOSPHORUS LEVEL 2019-07-08 04:00:00 Yunier Stephens Yazidism Wiley ESTIMATED GFR 2019-07-08 04:00:00 Yris Lagos Me thodist POC GLUCOSE 2019-07-07 21:30:00 Milton Ellington HYPERSENSITIVITY 2019-07-07 17:30:00 [facility] Met hodist PNEUMONITIS II Yoandy POC GLUCOSE 2019-07-07 17:19:00 Milton Ellington IMMUNOGLOBULIN G 2019-07-07 16:11:00 [facility] Met hodist Yoandy ANTI-NEUTROPHILIC 2019-07-07 14:30:00 Yunier Stephens Yazidism CYTOPLASMIC ABS PANEL Wiley SS-B ANTIBODY 2019-07-07 14:30:00 [facility] Meth odist Yoandy CENTROMERE ANTIBODY 2019-07-07 14:30:00 [facility] Yazidism Yoandy DNA AB SCREEN 2019-07-07 14:30:00 Yunier Stephens ethodist Wiley POC GLUCOSE 2019-07-07 12:08:00 Milton Ellington Yazidism POC GLUCOSE 2019-07-07 07:41:00 Milton Ellington Yazidism HEPATIC FUNCTION PANEL 2019-07-07 04:00:00 Yris Lagos Yazidism BASIC METABOLIC PANEL 2019-07-07 04:00:00 Yunier Stephens Yazidism [facility] MAGNESIUM LEVEL 2019-07-07 04:00:00 Yunier Stephens ethodist Wiley PHOSPHORUS LEVEL 2019-07-07 04:00:00 Yunier Stephens Yazidism Wiley ESTIMATED GFR 2019-07-07 04:00:00 Yris Lagos [...] Wiley MAGNESIUM LEVEL 2019-07-06 05:20:00 Yunier Stephens ethodi Wiley PHOSPHORUS LEVEL 2019-07-06 05:20:00 Yunier Stephens Wiley ESTIMATED GFR 2019-07-06 05:20:00 Yris Lagos thodist POC GLUCOSE 2019-07-06 04:50:00 Milton Ellington POC GLUCOSE 2019-07-05 21:41:00 Milton Ellington POC GLUCOSE 2019-07-05 18:11:00 Milton Ellington POC GLUCOSE 2019-07-05 16:19:00 Milton Ellington POC GLUCOSE 2019-07-05 12:39:00 Milton Ellington TTE COMPLETE, WO CONTRAST, 2019-07-05 09:25:06 Milton Ellington W DOPPLER ([id number]) POC GLUCOSE 2019-07-05 08:17:00 Milton Ellington BASIC METABOLIC PANEL 2019-07-05 05:14:00 Yunier Stephens Yazidism [facility] MAGNESIUM LEVEL 2019-07-05 05:14:00 Yunier Stephens [...] BASIC METABOLIC PANEL 2019-07-04 05:16:00 Yunier Stephens Yazidism [facility] MAGNESIUM LEVEL 2019-07-04 05:16:00 Yunier Stephens ethodist Wiley PHOSPHORUS LEVEL 2019-07-04 05:16:00 Yunier Stephens Wiley ESTIMATED GFR 2019-07-04 05:16:00 Yunier Stephens ethodist Wiley POC GLUCOSE 2019-07-03 21:52:00 Milton Ellington POC GLUCOSE 2019-07-03 16:16:00 Milton Ellington POC GLUCOSE 2019-07-03 12:31:00 Milton Ellington POC GLUCOSE 2019-07-03 11:50:00 Milton Ellington POC GLUCOSE 2019-07-03 07:48:00 Milton Ellington BASIC METABOLIC PANEL 2019-07-03 04:00:00 Yunier Stephens Yazidism [facility] MAGNESIUM LEVEL 2019-07-03 04:00:00 Yunier Stephens ethodist Wiley PHOSPHORUS LEVEL 2019-07-03 04:00:00 Yunier Stephens Wiley VANCOMYCIN LEVEL, RANDOM 2019-07-03 04:00:00 [place] ESTIMATED GFR 2019-07-03 04:00:00 Yunier Stephens ethodist Wiley POC GLUCOSE 2019-07-02 21:29:00 Milton Ellington POC GLUCOSE 2019-07-02 18:48:00 Milton Ellington BASIC METABOLIC PANEL 2019-07-02 16:05:00 Yunier Stephens Yazidism Wiley ESTIMATED GFR 2019-07-02 16:05:00 Yunier Stephens ethodist Wiley POC GLUCOSE 2019-07-02 16:03:00 [place]ington VENIPUNC NEED PHYS SKILL,DX 2019-07-02 14:59:18 Kaykay Rain OR RX POC GLUCOSE 2019-07-02 11:52:00 [place]ington POC GLUCOSE 2019-07-02 08:44:00 Milton Ellington VANCOMYCIN LEVEL, RANDOM 2019-07-02 04:00:00 Milton Ellington BASIC METABOLIC PANEL 2019-07-02 04:00:00 Yunier Stephens Yazidism Wiley MAGNESIUM LEVEL 2019-07-02 04:00:00 Yunier Stephens ethodist Wiley PHOSPHORUS LEVEL 2019-07-02 04:00:00 Yunier Stephens Iwley ESTIMATED GFR 2019-07-02 04:00:00 Milton Ellington POC GLUCOSE 2019-07-01 21:39:00 Milton Ellington POC GLUCOSE 2019-07-01 17:04:00 Milton Ellington Yazidism VANCOMYCIN LEVEL, TROUGH 2019-07-01 14:30:00 Milton Ellington Yazidism POC GLUCOSE 2019-07-01 12:20:00 Milton Ellington Yazidism POC GLUCOSE 2019-07-01 08:33:00 Milton Ellington Yazidism POC GLUCOSE 2019-07-01 04:13:00 Milton Ellington BASIC METABOLIC PANEL 2019-07-01 04:00:00 Yunier Stephens Yazidism Wiley MAGNESIUM LEVEL 2019-07-01 04:00:00 Yunier Stephens ethodist Wiley PHOSPHORUS LEVEL 2019-07-01 04:00:00 Yunier Stephens Wiley HEPATIC FUNCTION PANEL 2019-07-01 04:00:00 Yris Lagos ESTIMATED GFR 2019-07-01 04:00:00 Yunier Stephens ethodist Wiley POC GLUCOSE 2019-06-30 23:36:00 Milton Ellington Yazidism POC GLUCOSE 2019-06-30 21:09:00 Milton Ellington Yazidism POC GLUCOSE 2019-06-30 17:15:00 Milton Ellington POC GLUCOSE 2019-06-30 14:40:00 Milton Ellingtonist POC GLUCOSE 2019-06-30 11:58:00 Milton Ellington SURGICAL PATHOLOGY REQUEST 2019-06-30 11:36:00 Milton Ellington POC GLUCOSE 2019-06-30 10:00:00 Milton Ellington IR TRANSJUGULAR LIVER 2019-06-30 09:39:34 Yris Lagos BIOPSY BASIC METABOLIC PANEL 2019-06-30 04:03:00 Yunier Stephens Yazidism Wiley MAGNESIUM LEVEL 2019-06-30 04:03:00 Yunier Stephens ethodist Wiley PHOSPHORUS LEVEL 2019-06-30 04:03:00 Yunier Stephens Yazidism Wiley HEPATIC FUNCTION PANEL 2019-06-30 04:03:00 Yris [...] Wiley HC COMPLETE BLD COUNT 2019-06-29 04:54:00 Yunier Stephens W/AUTO DIFF Wiley VANCOMYCIN LEVEL, RANDOM 2019-06-29 04:54:00 Milton Ellington HEPATIC FUNCTION PANEL 2019-06-29 04:54:00 Yris Lagos ESTIMATED GFR 2019-06-29 04:54:00 Yris Lagos Ms thodist POC GLUCOSE 2019-06-28 20:33:00 Milton Ellington POC GLUCOSE 2019-06-28 16:06:00 Milton Ellington POC GLUCOSE 2019-06-28 12:29:00 Milton Ellington HEPATIC FUNCTION PANEL 2019-06-28 12:23:00 Yris Lagos ECG 12-LEAD 2019-06-28 09:41:10 Milton Ellington POC GLUCOSE 2019-06-28 09:14:00 Milton Ellington TROPONIN 2019-06-28 09:13:00 Milton Ellington HEPATIC FUNCTION PANEL 2019-06-28 09:13:00 Milton Ellington BASIC METABOLIC PANEL 2019-06-28 05:22:00 Angelo Yunier hernández Yazidism Wiley MAGNESIUM LEVEL 2019-06-28 05:22:00 Angelo Yunier Olea [facility] ethodist Wiley PHOSPHORUS LEVEL 2019-06-28 05:22:00 Angelo Yunier Olea Yazidism Wiley VANCOMYCIN LEVEL, RANDOM 2019-06-28 05:22:00 Milton Ellington ESTIMATED GFR 2019-06-28 05:22:00 Milton Ellington POC GLUCOSE 2019-06-27 21:03:00 Milton Ellington POC GLUCOSE 2019-06-27 17:04:00 Milton Ellington POC GLUCOSE 2019-06-27 14:07:00 Milton Ellington POC GLUCOSE 2019-06-27 11:57:00 Milton Ellington POC GLUCOSE 2019-06-27 08:26:00 [place] ECG 12-LEAD 2019-06-27 08:13:50 Usha Oquendo odist BASIC METABOLIC PANEL 2019-06-27 05:14:00 Angelo Yunier hernández Yazidism Wiley MAGNESIUM LEVEL 2019-06-27 05:14:00 Angelo Yunier [place] ethodist Wiley PHOSPHORUS LEVEL 2019-06-27 05:14:00 AngeloYunier Yazidism Wiley VANCOMYCIN LEVEL, RANDOM 2019-06-27 05:14:00 [place] [facility] ESTIMATED GFR 2019-06-27 05:14:00 [place] [facility] POC GLUCOSE 2019-06-26 21:21:00 [place] [facility] POC GLUCOSE 2019-06-26 19:41:00 [place] [facility] POC GLUCOSE 2019-06-26 19:12:00 [place] [facility] ULTRAFILTRATION 2019-06-26 13:39:23 Andrews Wright Ms thodist POC GLUCOSE 2019-06-26 12:05:00 [place] POC GLUCOSE 2019-06-26 08:54:00 [place] [facility] BASIC METABOLIC PANEL 2019-06-26 06:25:00 Yunier Stephens Wiley MAGNESIUM LEVEL 2019-06-26 06:25:00 Yunier Stephens ethodist Wiley PHOSPHORUS LEVEL 2019-06-26 06:25:00 Yunier Stephens Wiley HC COMPLETE BLD COUNT 2019-06-26 06:25:00 Yunier Stephens Yazidism W/AUTO DIFF Wiley VANCOMYCIN LEVEL, RANDOM 2019-06-26 06:25:00 [place] ESTIMATED GFR 2019-06-26 06:25:00 [place] [facility] POC GLUCOSE 2019-06-25 23:39:00 [facility] HEMODIALYSIS 2019-06-25 21:44:30 Andrews Wright Ms thodist POC GLUCOSE 2019-06-25 21:14:00 [place] [facility] BASIC METABOLIC PANEL 2019-06-25 18:45:00 Yunier Stephens Yazidism Wiley PHOSPHORUS LEVEL 2019-06-25 18:45:00 Yunier Stephens Wiley ESTIMATED GFR 2019-06-25 18:45:00 Yunier Stephens ethodist Wiley POC GLUCOSE 2019-06-25 15:45:00 [place] [facility] POC GLUCOSE 2019-06-25 11:30:00 [place] [facility] POC GLUCOSE 2019-06-25 07:47:00 [place] POC GLUCOSE 2019-06-25 00:05:00 [place] POC GLUCOSE 2019-06-24 21:12:00 [place] POC GLUCOSE 2019-06-24 16:22:00 [place] [facility] POC GLUCOSE 2019-06-24 13:17:00 [place] [facility] HEMODIALYSIS 2019-06-24 11:11:02 Yunier Stephens ethodist Wiley POC GLUCOSE 2019-06-24 07:35:00 [place] BASIC METABOLIC PANEL 2019-06-24 04:00:00 StephensYunier Yazidism Wiley MAGNESIUM LEVEL 2019-06-24 04:00:00 Angelo Yunier [place] ethodist Wiley PHOSPHORUS LEVEL 2019-06-24 04:00:00 Angelo Ynuier Olea Yazidism Wiley HEPATIC FUNCTION PANEL 2019-06-24 04:00:00 Yris [place] Yazidism HC COMPLETE BLD COUNT 2019-06-24 04:00:00 Angelo Yunier hernández Yazidism W/AUTO DIFF Wiley ESTIMATED GFR 2019-06-24 04:00:00 Angelo Yunier [place] ethodist Wiley POC GLUCOSE 2019-06-23 18:00:00 [facility] HEMODIALYSIS 2019-06-23 12:21:38 Stephens, Yunier [place] ethodist Wiley POC GLUCOSE 2019-06-23 11:18:00 [facility] IR TUNNELED DIALYSIS 2019-06-23 10:03:03 [place] CATHETER PLACEMENT POC GLUCOSE 2019-06-23 09:54:00 [facility] POC GLUCOSE 2019-06-23 08:19:00 [place] BASIC METABOLIC PANEL 2019-06-23 05:30:00 StephensYunier Wiley MAGNESIUM LEVEL 2019-06-23 05:30:00 Stephens, Yunier [place] ethodist Wiley PHOSPHORUS LEVEL 2019-06-23 05:30:00 StephensYunier Wiley HEPATIC FUNCTION PANEL 2019-06-23 05:30:00 Yris Lagos HC COMPLETE BLD COUNT 2019-06-23 05:30:00 StephensYunier W/AUTO DIFF Wiley ESTIMATED GFR 2019-06-23 05:30:00 Stephens, Yunier [place] ethodist Wiley POC GLUCOSE 2019-06-22 21:30:00 [place] [facility] POC GLUCOSE 2019-06-22 12:28:00 [place] [facility] POC GLUCOSE 2019-06-22 08:38:00 [place] BASIC METABOLIC PANEL 2019-06-22 04:30:00 Yunier Stephens Wiley MAGNESIUM LEVEL 2019-06-22 04:30:00 Yunier Stephens ethodist Wiley PHOSPHORUS LEVEL 2019-06-22 04:30:00 Yunier Stephens Wiley HC COMPLETE BLD COUNT 2019-06-22 04:30:00 Yunier Stephens W/AUTO DIFF Wiley HEPATIC FUNCTION PANEL 2019-06-22 [...] Stephens Wiley ESTIMATED GFR 2019-06-21 04:00:00 Yunier Stephens ethodist Wiley POC GLUCOSE 2019-06-20 21:33:00 [place] [facility] AEROBIC CULTURE 2019-06-20 17:32:00 [place] GRAM STAIN 2019-06-20 17:32:00 [place] POC GLUCOSE 2019-06-20 15:51:00 [place] POC GLUCOSE 2019-06-20 12:25:00 [place] POC GLUCOSE 2019-06-20 07:34:00 [place] [facility] HEPATIC FUNCTION PANEL 2019-06-20 04:00:00 Yris Lagos Yazidism BASIC METABOLIC PANEL 2019-06-20 04:00:00 Yunier Stephens Yazidism Wiley MAGNESIUM LEVEL 2019-06-20 04:00:00 Yunier Stephens ethodist Wiley PHOSPHORUS LEVEL 2019-06-20 04:00:00 Yunier Stephens Yazidism Wiley ESTIMATED GFR 2019-06-20 04:00:00 Yris [place]os thodist POC GLUCOSE 2019-06-19 21:31:00 [place] CREATININE LEVEL, URINE, 2019-06-19 19:06:00 Javan Mcdowell Yazidism RANDOM PROTEIN, URINE, RANDOM 2019-06-19 19:06:00 Javan Mcdowell Yazidism POC GLUCOSE 2019-06-19 16:08:00 [place] POC GLUCOSE 2019-06-19 12:34:00 [place] Yazidism POC GLUCOSE 2019-06-19 07:42:00 [place] ANTI MITOCHONDRIA SCREEN 2019-06-19 00:00:00 Yris Lagos Yazidism HEPATIC FUNCTION PANEL 2019-06-19 00:00:00 Yris Lagos Yazidism BASIC METABOLIC PANEL 2019-06-19 00:00:00 Yunier Stephens Yazidism Wiley MAGNESIUM LEVEL 2019-06-19 00:00:00 Yunier Stephens ethodist Wiley PHOSPHORUS LEVEL 2019-06-19 00:00:00 Yunier Stephens Yazidism Wiley ESTIMATED GFR 2019-06-19 00:00:00 Yunier Stephens [...] [place] TOTAL HEPATITIS B SURFACE 2019-06-18 04:00:00 Yirs Lagos ANTIBODY HEPATITIS B SURFACE ANTIGEN 2019-06-18 04:00:00 Lore [place] HEPATITIS C ANTIBODY 2019-06-18 04:00:00 Yris Lagos CERULOPLASMIN LEVEL 2019-06-18 04:00:00 Yris Lagos ALPHA FETOPROTEIN 2019-06-18 04:00:00 Demond Yris Johnson ALPHA-1 ANTITRYPSIN LEVEL 2019-06-18 04:00:00 Demond Yris Haywoodist ANNE 2019-06-18 04:00:00 Yris Lagos Lefty Me thodist GGT 2019-06-18 04:00:00 Yris Lagos Lefty Me thodist ESTIMATED GFR 2019-06-18 04:00:00 Yris Lagos Lefty Me thodist POC GLUCOSE 2019-06-17 21:17:00 [place] [facility] POC GLUCOSE 2019-06-17 17:07:00 [place] [facility] US ABDOMEN COMPLETE 2019-06-17 16:48:45 Demond Yris Haywoodist US ABDOMINAL DOPPLER 2019-06-17 16:48:35 Demond Yris torres Yazidism US RENAL 2019-06-17 14:26:40 Usha Oquendo Meth odist POC GLUCOSE 2019-06-17 11:38:00 [place] POC GLUCOSE 2019-06-17 08:22:00 [place] CELIAC DISEASE REFLEXIVE 2019-06-17 04:53:00 Sharon Loving CASCADE BASIC METABOLIC PANEL 2019-06-17 04:53:00 Yunier Stephens Yazidism Wiley MAGNESIUM LEVEL 2019-06-17 04:53:00 Yunier Stephens ethodist Wiley PHOSPHORUS LEVEL 2019-06-17 04:53:00 Yunier Stephens Wiley ESTIMATED GFR 2019-06-17 04:53:00 Yunier Stephens M ethodist Wiley TISSUE TRANSGLUTAMINASE AB, 2019-06-17 04:53:00 [...] HEAD WO CONTRAST 2019-06-14 20:31:08 [place] Yazidism POC GLUCOSE 2019-06-14 16:31:00 [place] POC [...] COMPLETE BLD COUNT 2019-06-12 19:49:00 Guillermo Jeffery Yazidism W/AUTO DIFF COMPREHENSIVE METABOLIC 2019-06-12 19:49:00 Guillermo Jeffery PANEL TROPONIN 2019-06-12 19:49:00 [place] B [...] RHYTHM STRIP - SCAN 2019-01-12 15:42:05 Provider, Ronit [facility] POCT-GLUCOSE METER 2019-01-11 12:15:00 Julia Chavis [facility] BASIC METABOLIC PANEL (7) 2019-01-11 05:03:00 Joey Garcia [facility] CBC W/PLT COUNT & AUTO 2019-01-11 05:03:00 Kecia Logan [facility] POCT-GLUCOSE METER 2019-01-10 20:31:00 Joey Garcia [facility] POCT-GLUCOSE METER 2019-01-10 17:28:00 JoseJoey escobedo Erica [facility] CT BRAIN WITHOUT IV 2019-01-10 11:31:00 Toribio Clarke [facility] CT CHEST WITHOUT IV 2019-01-10 11:31:[address] [facility] D-DIMER 2019-01-10 11:00:00 [facility]a [facility] XR CHEST 1 VIEW 2019-01-10 07:16:00 [facility] ECG 12-LEAD 2019-01-10 06:30:43 Ryan [facility] BASIC METABOLIC PANEL (7) 2019-01-10 06:11:00 Darnell Renner [facility] B-TYPE NATRIURETIC FACTOR 2019-01-10 06:11:00 Michael Abdullahi [facility] (BNP) [facility] TROPONIN I 2019-01-10 06:11:00 Jose Joey Erica [facility] CBC W/PLT COUNT & AUTO 2019-01-10 06:11:00 Kecia Logan [facility] ECG 12-LEAD 2019-01-10 06:01:23 Unknown, Hl7 Doctor [facility] TROPONIN I 2019-01-09 23:14:00 Jose Joey Erica [facility] POCT-GLUCOSE METER 2019-01-09 21:16:00 Tanvir Hammond [facility] TROPONIN I 2019-01-09 18:27:00 Jose Joey Erica [facility] POCT-GLUCOSE METER 2019-01-09 18:03:[address] [facility] PO[facility]SE METER 2019-01-09 12:10:[address] [facility]SE METER 2019-01-09 08:08:00 Hirzallah, [facility] APTT 2019-01-09 04:35:00 [facility] BASIC METABOL[facility] PANEL (7) 2019-01-09 04:35:00 NathalyvladimirGermanzandra Apple [facility] CBC W/PLT COUNT & AUTO 2019-01-09 04:35:00 Kecia Logan [facility] DIFFERENTIAL [facility] POCT-GLUCOSE METER 2019-01-08 22:07:00 [facility] ECHOCARDIOGRAM REPORT - 2019-01-08 21:20:36 ProviderRonit [facility] POCT-GLUCOSE METER 2019-01-08 17:02:00 RowenaHeavenchetopaerica [facility] APTT 2019-01-08 16:03:00 [facility] BASIC METABOLIC PANEL (7) 2019-01-08 16:03:00 [facility] Darnell Apple [facility] PT/APTT 2019-01-08 16:03:00 [facility] POCT-GLUCOSE METER 2019-01-08 11:49:[address] [facility] POCT-GLUCOSE METER 2019-01-08 07:33:00 RowenaHeavenchetopaerica [facility] APTT 2019-01-08 04:27:00 Agueda Cruz [facility] CBC W/PLT COUNT & AUTO 2019-01-08 04:22:[address] [facility] S [facility] DIFFERENTIAL [facility] POCT-GLUCOSE METER 2019-01-07 22:08:[address] [facility] [address] POCT-GLUCOSE METER 2019-01-07 18:41:[address] [facility] APTT 2019-01-07 18:40:00 Agueda Cruz [facility] ECHO W CONTRAST & DOPPLER 2019-01-07 16:16:26 Ozzy Bey [facility] POCT-GLUCOSE METER 2019-01-07 14:25:00 [facility] ECG 12-LEAD 2019-01-07 13:40:29 [facility] TROPONIN I 2019-01-07 13:21:00 [facility] POCT-GLUCOSE METER 2019-01-07 12:59:00 Rowena [facility] POCT-GLUCOSE METER 2019-01-07 11:58:[address] [facility] [address] APTT 2019-01-07 11:53:00 Anthony [facility] POCT-GLUCOSE METER 2019-01-07 11:03:00 [facility] POCT-GLUCOSE METER 2019-01-07 10:19:00 [facility] POCT-GLUCOSE METER 2019-01-07 09:09:00 [facility] POCT-GLUCOSE METER 2019-01-07 08:04:00 [facility] POCT-GLUCOSE METER 2019-01-07 06:56:00 [facility] BASIC METABOLIC PANEL (7) 2019-01-07 06:01:00 Kecia Logan [facility] MAGNESIUM 2019-01-07 06:01:00 Kecia Logan [facility] PHOSPHORUS 2019-01-07 06:01:00 [facility] 2019-01-07 06:01:00 [facility] 2019-01-07 06:01:00 Agueda Cruz [facility] CBC W/PLT COUNT & AUTO 2019-01-07 06:01:00 Kecia Logan [facility] POCT-GLUCOSE METER 2019-01-07 05:59:00 [facility] POCT-GLUCOSE METER 2019-01-07 04:55:00 [facility] POCT-GLUCOSE METER 2019-01-07 04:04:00 [facility] POCT-GLUCOSE METER 2019-01-07 02:56:00 [facility] POCT-GLUCOSE METER 2019-01-07 01:56:00 [facility] POCT-GLUCOSE METER 2019-01-07 01:02:00 [facility] POCT-GLUCOSE METER 2019-01-07 00:13[facility] 2019-01-06 23:59:00 Anthony [facility] B-TYPE NATRIURETIC FACTOR 2019-01-06 23:59:00 Agueda Cruz [facility] (BNP) [facility] APTT 2019-01-06 23:59:00 Anthony [facility] POCT-GLUCOSE METER 2019-01-06 23:09:00 [facility] 2019-01-06 22:50:[address] [facility] PORTABLE/BEDSIDE [facility] ECG 12-LEAD 2019-01-06 22:10:07 Anthony [facility] POCT-GLUCOSE METER 2019-01-06 22:05:[address] [facility] IV 2019-01-06 21:23:00 Doreen [facility] ECG 12-LEAD 2019-01-06 20:24:31 Doreen [facility] HEPATIC FUNCTION PANEL 2019-01-06 19:15:00 Doreen [facility] PROTHROMBIN TIME/INR 2019-01-06 19:15:00 [facility] 2019-01-06 19:15:00 Doreen [facility] TROPONIN I 2019-01-06 19:15:00 Doreen [facility] HEMOGLOBIN A1C 2019-01-06 19:15:00 Doreen [facility] BASIC METABOLIC PANEL (7) 2019-01-06 19:15:00 Genny Stephens CH I [facility] CBC W/PLT COUNT & AUTO 2019-01-06 19:15:00 Doreen [facility] POCT-GLUCOSE METER 2019-01-06 17:46:00 Jamel Crawford [facility] Plan of Care Planned Activity Planned Date Details Comments Source Future Scheduled 2021-06-30 DIABETIC RETINAL EYE [facility] Test 00:00:00 EXAM [code = DIABETIC RETINAL EYE EXAM] Future Scheduled 2019-11-27 INFLUENZA VACCINE [place] [facility] 00:00:00 [code = INFLUENZA VACCINE] Future Scheduled 2017-07-30 COLONOSCOPY SCREENING [place] [facility] Test 00:00:00 [code = COLONOSCOPY SCREENING] Future Scheduled 2017-07-30 SHINGLES VACCINES [place] [facility] 00:00:00 (#1) [code = SHINGLES VACCINES (#1)] Future Scheduled 1977-07-30 DIABETIC FOOT EXAM [place] [facility] Test 00:00:00 [code = DIABETIC FOOT EXAM] Encounters Start End Encounter Admission Attending Care Care Encounter Source Date/Time Date/Time Type Type Clinicians Facility Department ID 2019-10-01 2019-10-01 Orders Doctor ZHENG [id number] 00:00:00 00:00:00 Only UnassignedPRISCILA [id number] [place] [id number] [id number] 2019-09-21 2019-09-21 Orders Doctor ZHENG [id number] 00:00:00 00:00:00 Only UnassignedPRISCILA [id number] [place] [id number] [id number] 2019-06-12 2019-07-16 Inpatient [place], [facility] [id number] [place] 00:00:00 00:00:00 [place] [address] 2019-06-22 2019-06-22 Patient Doctor MARCE [id number] 00:00:00 00:00:00 Secure Msg UnassignedPRISCILA [id number] [place] [facility] [id number] [id number] 2019-06-14 2019-06-14 Telephone MARCE Rich [id number] 00:00:00 00:00:00 Yvette Villavicencio PRISCIL[place] [id number] [place] [id number] 2019-06-14 2019-06-14 Telephone Ceci, [facility] [id number] 00:00:00 00:00:00 [facility] [id number] [place] [id number] Professio [id number] nal 0[address] 2019-06-03 2019-06-03 Telephone Ceci, [facility] [id number] 00:00:00 00:00:00 [facility] [id number] [place] [id number] Professio [id number] nal 044 [address] 2019-05-26 2019-05-26 Office Ceci, [facility] [id number] 07:34:38 09:02:52 Visit [facility] [id number] [place] [id number] Professio [id number] nal 044 [address] One Results Test Description Test Time Test Comments Results Result Comments Source POC glucose 2019-07-16 12:30:05 Test Item Value Reference Range Interpretation Comme nts POC glucose (test code = 253 mg/dL 65-99 H Ope rator Name: Ney Child 53072-0) ID: [id number] hartable: [facility] Notified political science faculty member Interpretation (test code = Abnormal 83495-3) [facility] MethodistBasic metabolic [id number] 07:23:50 Test Item Value Reference Range Interpretation Comments Sodium (test code = 2951-2) 142 135- 148 mEq/L Potassium (test code = 2823-3) 4.3 3.5- 5.0 mEq/L Chloride (test code = 2075-0) 105 98- 112 mEq/L CO2 (test code = 8-9) 27 24- 31 mEq/L Anion gap (test code = 64403-6) 10@ANIO 7- 15 mEq/L BUN (test code = 3094-0) 46 mg/dL 6-20 H Creatinine (test code = 2160-0) 4.61 mg/dL 0.7-1.2 H Glucose (test code = 2345-7) 189 mg/dL 65-99 H Calcium (test code = 95305-9) 8.7 mg/dL 8.3-10.2 Lab Interpretation (test code = Abnormal 06800-7) [place] MethodistEstimated [id number] 07:23:50 Test Item Value Reference Range Interpretation Comments Estimated GFR (test 14 mL/min/1.73 m2 Ev rowe Units code = 5488) InterpretationG 1 >=90 Cora l or highG2 60-89 Mildly decrease dG3a 45-59 Mil dly to moderately decr tpixaW5o 30-44 Moderately to s everely decreasedG4 15-29 Severe ly decreasedG5 <15 Kidney jesica lureThe eGFR was calcul ated using the Chron ic Kidney Disease Epidemiology Collaboration ( CKD-EPI) equation. Interpretation is based on recommendati ons of the National Ki dney Foundation-Kidn ey Disease Outcome s Quality Initiat christa (NKF-KDOQI) pub lished in 2013. Lab Interpretation Abnormal (test code = 44817-3) [place] MethodistPhosphorus [id number] 07:23:49 Test Item Value Reference Range Interpretation Comments Phosphorus (test code = 2777-1) 4.3 mg/dL 2.4-4.5 [place] [facility] with platelet and [id number] 07:33:09 Test Item Value Reference Range Interpretation Comments WBC (test code = 10341-0) 6.44 4.50- 11.00 k/uL RBC (test code = 55031-0) 3.54 m/uL 4.4-6 L HGB (test code = 718-7) 10.6 g/dL 14-18 L HCT (test code = 4544-3) 31.2 % 41-51 L MCV (test code = 787-2) 88.1 fL 82-100 MCH (test code = 785-6) 29.9 pg 27-34 MCHC (test code = 786-4) 34.0 g/dL 31-37 RDW - SD (test code = 44.3 fL 37-55 94701-5) MPV (test code = 51711-9) 12.1 fL 8.8-13.2 Platelet count (test code 157 150- 400 k/uL = 35600-3) Nucleated RBC (test code 0.00 /100 WBC = 40373-3) Neutrophils (test code = 48.0 % 39-69 28973-7) Lymphocytes (test code = 32.5 % 25-45 15487-2) Monocytes (test code = 7.8 % 0-10 17353-7) Eosinophils (test code = 10.6 % 0-5 H 79636-2) Basophils (test code = 0.9 % 0-1 55589-0) Immature granulocytes 0.2 % 0-1 "Immat ure (test code = 61113-7) granul ocytes" (promyelocytes, myelocytes, metamyelocytes) Lab Interpretation (test Abnormal code = 86234-4) [place] MethodistMagnesium [id number] 07:17:31 Test Item Value Reference Range Interpretation Comments Magnesium (test code = 46281-4) 1.9 mg/dL 1.6-2.6 [place] MethodistHypersensitivity pneumonitis [id number] 10:14:04 Test Item Value Reference Interpretation Comments Range Aspergillus flavus None Detected None-Detected Testing includes (test code = 34314-1) antibo dies directed at Aspergillus flavus, Aspergi llus fumigatus #2, Aspergillus fum igatus #3, Saccharomon ospora viridis, and Thermoactinomyc es candidus. Aspergillus fumigatus None Detected None-Detected #2 (test code = 96740-0) Aspergillus fumigatus None Detected None-Detected #3 (test code = 21092-3) Saccharomonospora None Detected None-Detected viridis (test code = 59114-5) Thermoactinomyces None Detected None-Detected Performe d by SRINIVAS barlow (test code = Terry hummel,500 80417-3) [facility] [place] [address] jyo .Panjiva, Roberto Almaguer MD, Juanita jane. Director Thermoactinomyces NOT PERFORMED saccharii (test code = WITH THIS 36101-3) PANEL [place] MethodistHypersensitivity pneumonitis [id number] 01:53:46 Test Item Value Reference Interpretation Comments Range Aspergillus fumigatus None Detected None-Detected #1 (test code = 6808-0) Aspergillus fumigatus None Detected None-Detected #6 (test code = 6809-8) Aureobasidium None Detected None-Detected Testing incl udes pullulans (test code = antib odies directed 6810-6) at [facility] m pullulans, Aspergillus fum igatus #1, Aspergillus fumigatus #6, Micropolyspora faeni, [place] Serum an d Thermoactinomyc es vulgaris #1. [place] serum (test None Detected None-Detected code = 6733-0) Micropolyspora faeni None Detected None-Detected (test code = 6818-9) Thermoactinomyces None Detected None-Detected Performe d by SRINIVAS vulgaris #1 (test code Labor gilmer,500 = 6821-3) [facility],[place] [id number] www .Panjiva, Roberto Almaguer MD, Juanita escobedo Director [facility] Chest Wo [id number] 10:29:13Hm Interface, Radiology Results 07/11/2019 10:32 AM CDTEXAMINATION:CT CHEST WO CONTRASTCLI [...] of improvement of multifocal pneumonia. Recommend clinical correlation..[facility]-[id number] MethodistFerritin [id number] 14:34:03 Test Item Value Reference Range Interpretation Comments Ferritin level (test code = 2276-4) 214 ng/mL 30-400 [place] MethodistTotal iron binding [id number] 14:29:17 Test Item Value Reference Range Interpretation Comments Iron level (test code = 2498-4) 72 ug/dL 59-158 Iron binding capacity (test code = 298 ug/dL 206-967 5790-7) % Saturation (test code = 2502-3) 24.2 % 20-40 [place] YobanyistAnti-neutrophilic cytoplasmic Abs [id number] 15:24:12 Test Item Value Reference Range Interpretation Comments ANCA screen (test code = 3472) Negative Negative [place] YazidismFL Modified Barium [id number] 15:02:46Hm Interface, Radiology Results - 07/09/2019 3:05 PM CDTEXAMINATION: [place] MODIFIED BARIUM SWALLOWCLINICAL HISTORY: aspiration dysphagia unspecifiedCOMPARISON: 02/13/2019Fluoroscopy time: 1.2minutesTotal patient dose: 7.5 mGyFINDINGS: The patient swallowed varying consistencies of barium under direct lateral fluoroscopic evaluation. The study was performed in conjunction with speech pathology.IMPRESSION:Laryngeal penetration with thin barium. Contrast remained above the vocal folds. No evidence of aspiration.Please refer to Speech Pathology report for further details.[facility]-[id number] and approved by vice president underwriting/fellow: Cely Babcock, Adriana Morales MD, personally reviewed the images and resident's/fellow's findings and agree with the final report.[place] MethodistDNA Ab [id number] 14:55:49 Test Item Value Reference Range Interpretation Comments DNA Ab screen (test code = 1297) Not Detected Not-Detected [place] MethodistHepatic function [id number] 07:12:14 Test Item Value Reference Range Interpretation [...] g/dL 1-2 years 5.6-7.5 g/dL>3 years 6.0-8.0 g/gN50-634 6.3-8. 3 g/dL ALT (test code = 1742-6) 20 U/L 5-50 AST (test code = 1920-8) 20 U/L 10-50 Lab Interpretation (test Abnormal code = 51270-3) [place] MethodistImmunoglobulin [id number] 18:32:35 Test Item Value Reference Range Interpretation Comments IgG (test code = 2465-3) 1005 mg/dL 700-1600 [place] MethodistCentromere [id number] 18:10:06 Test Item Value Reference Range Interpretation Comments Centromere antibody <0.2 0.0- 0.9 AI (test code = 8068-9) Centromere antibody Negative AI Anti-kyrie tromere interp (test code = antibodi es are found 84822-2) in patients wit h systemic sclero sis (SSc or sclerod obinna), especially for those with limited cu taneous or CREST syndro me. Anti-centromere antibodies may also be found in patien ts with other rheumatic or connective tiss ue diseases. Lef[facility] Meadowscl-70 [id number] 18:10:06 Test Item Value Reference Range Interpretation Comments Scleroderma SCL-70 Ab <0.2 0.0- 0.9 AI (test code = 66925-7) Scl-70 antibody interp Negative AI Anti- Scl-70 (test code = 5268) (topoisom erase I) antibodies are found in patients with s ystemic sclerosis (SSc or scleroderma), a nd have been reported t o be predictive of d iffuse cutaneous invol vement. Anti-Scl-70 ant ibodies may also be pre sent in patients with s ystemic lupus erythemat osus (SLE). Lefty HaywoodistSS-A mbgfdvfd1340-11-55 18:10:06 Test Item Value Reference Range Interpretation Comments Sjogren's SS-A <0.2 0.0- 0.9 AI antibody (test code = 01445-7) SS-A antibody interp Negative AI SS-A an tibody is (test code = 2235) sensitive for Sjogren's syndrome, but m ay also be positive with s ystemic lupus erythemat osus (SLE), and syst emic sclerosis. Lefty HaywoodistSS-B rtiibytl2319-52-99 18:10:05 Test Item Value Reference Range Interpretation Comments Sjogren's SS-B <0.2 0.0- 0.9 AI antibody (test code = 3001) SS-B antibody interp Negative AI SS-B/La antibody is seen (test code = 2237) in patien ts with Sjogren syndrome, but m ay also be positive with s ystemic lupus erythemat osus (SLE), and syst emic sclerosis. Lefty JohnsonCT Cardiac Xtzabkbz9497-50-19 19:51:26Hm Interface, Radiology Results - 07/06/2019 7:54 [...] characterization with CT of the chest is recommendedHouholy family hospital MethodistCv cta coronary arteries w contrast and ffr if vndwud0003-55-31 17:59:00Interface, Radiology Results In - 07/06/2019 5:59 PM CDT Nuclear Cardiology and Cardiac CT [address] [place] [address] CTA Coronary Arteries ReportPat.Name: PAOLA ENGEL Pat.ID: [id number] .Date: 07/06/2019 Refer.MD: MILTON ELLINGTON MDExam Time: 1:09:00 PMStudy Type:CTA Coronary Arteries Height: 67in Weight: 212lb BSA: 2.07 m2 Age: 4 1965,53Y Sex: MALE BP: 151/83 HR: 54 bpm Nuclear Tech:Samina Beyer RT(R)(CT)Pat. Stat.:Inpatient Tape Vol: 33.2, CPT - 4: CCTA w Thoracic Aorta (NonCongenital) [id number] Event ID:[id number] Order ID: [id number] Reason for Study:Pre-Op CABG, CAD History / Clinical:Coronary artery disease, Diabetes, Hyperlipidemia,Hypertension, S/P PCI 07/2007, Liver cirrhosis/Hepatitis CProcedures: CT Prospective(phases)Race: C SUMMARY: Technique: IV contrast was administered and sequential 0.[address] cutswere obtained through the chest using the Siemens Somatom Force CTscanner. Image post-processing consisting of multiplanar and 3Dreconstructions were performed using the Meditechworkstation. Interactive image viewing, volumetric display andanalysis were [...] refer to the separate radiology report in [facility] for anyaddi tional non-cardiovascular findings. STUDY QUALITYThe study quality is good.COMMENTSNone. FINDINGS: Signed 07/06/2019 05:59 Bethany Olvera MethodistSurgical pathology rkphfbl9799-64-59 13:32:02 Test Item Value Reference Range Interpretation Comments Case number (test code = [id number]) Surgical pathology See link below for report (test code = PDF Lab Report 2255) Result status (test code This is Final Report = [id number]) for [id number] Lefty JohnsonHIV Ag/Ab ynopecdphml9690-97-54 09:39:34 Test Item Value Reference Range Interpretation Comments HIV Ag/Ab combination (test code Non-reactive Non-reactive = 5299) Lefty JohnsonProthrombin time with UXG1411-66-10 07:38:02 Test Item Value Reference Range Interpretation Comments Prothrombin time (test 14.5 11.5- 14.5 sec code = 5902-2) INR (test code = 1.1 [facility] 878[facility]-8) Normalized Rati o (INR) is a therapeutic m onitoring tool for patien ts who are stable on oral anticoagulant t herapy. An INR of 2.0-3.0 is suggested for d eep vein thrombosis/pulm onary embolism. Lefty JohnsonC4 complement nqqqqewnu3260-26-11 07:25:14 Test Item Value Reference Range Interpretation Comments C4 complement (test code = 4498-2) 34 mg/dL 10-40 Lefty HaywoodistC3 complement egaokswqy5071-08-13 07:25:14 Test Item Value Reference Range Interpretation Comments C3 complement (test code = 4485-9) 133 mg/dL 90-180 Lefty HaywoodistRheumatoid euhkcn0266-55-29 07:25:13 Test Item Value Reference Range Interpretation Comments Rheumatoid factor (test code = 91105-1) <10 0- 13 IU/mL [facility] CenterTransthoracic Echocardiogram Complete, (w Contrast, Strain and 3D if needed)2019-07-05 10:49:00Interface, Radiology Results In - 07/05/2019 10:49 AM CDT Echocardiography Report [address] [place] [address] Pat.Name: PAOLA ENGEL Pat.ID: [id number].Date: 07/05/2019 Refer.MD: MILTON ELLINGTON MDExam Time: 7:54:00 AM Study Type:Routine Echo Height: 67in Weight: 212lb BSA: 2.07 m2 Age: 4 1965,53Y Sex: MALE BP: 157/71 Sonogrphr: Audrey Bella RDCS, RVSPat. Stat.:Inpatient Room: [facility] Study Status:Final Echo Event ID:[id number] Order ID: [id number] Reason for Study:Chest pain, suspected cardi ac etiologyHistory / Clinical:Chest Pain, Diabetes, Hyperlipidemia, Hypertension,Cirrhosis, [place], Infectious Viral HepatitisProcedures: 2D Echo, Colorflow DopplerRace: [...] estimate PA systolic pressure. MEASUREMENTS: 2DParasternal Long [place] Ao An 2 cm LVPWd 1.5 cm [...] Signed 07/05/2019 10:49 Bethany Rain MethodistVancomycin level, fdbtyp5570-83-64 06:48:15 Test Item Value Reference Range Interpretation Comments xavi Shaw (test code = 11.9 ug/mL 10913-9) Lefty JohnsonVENIPUNC NEED PHYS SKILL,DX OR [id number] 14:59:18SEstela lim RN 07/02/2019 3:03 PMMidlineDate/Time: 07/02/2019 2:59 PMPerformed by: Michel Rainuthorized by: Milton Ellington Sr., MD Consent: Consent [...] Catheter Length (cm): 10 Catheter Lot Number: [id number] Catheter Expiration Date: 1Procedure Details: Landmarks identified: [...] tolerance of procedure: Tolerated well, no immediate complicationsHouholy family hospital MethodistVancomycin level, trough 2019-07-01 15:28:35 Test Item Value Reference Range Interpretation Comments Vancomycin, trough 23.0 ug/mL 10-20 HH Therapeut ic Ranges: (test code = 94085-5) Peak 30.0 - 40.0 ug/mL T rough 10.0 - 20.0 ug/mL Lab Interpretation Abnormal (test code = 22398-9) [place] [facility] Transjugular Liver Eakzdr4693-83-00 16:47:45Hm Interface, Radiology Results 06/30/2019 4:50 PM CSTPerforming RadiologistJeveronica Lauren MD AssistantsNone Anesthesia TypeModerate sedation was administered by the procedure nurse and monitored by the procedure physician for a prgn-mf-aegu sedation time of 20 minutes. Lidocaine 1% was usedfor local anesthetic. Pre Procedure Gvfgzcfrv33-asto-owf man with possible cirrhosis.. Post Procedure DiagnosisStatus [...] for local anesthetic. Using real-time ultrasound guidance, n70-ginwv micropuncture needle was used to access the [...] into the inferior vena cava. A long 9-[place] Rican vascular sheath was then placed,andadvanced over the guidewire into the right atrium. Right atrial pressure measures were then obtained. A 5-[place]ican multipurpose catheter was advanced over the guidewire and used to select the right hepatic vein. A CO2 right hepatic venogram was performed. Pressure measurements were also obtained in boththe free and wedge positions. The 9-[place]ican vascular sheath was then advanced into the right hepatic vein. The transjugular liver biopsy system was advanced through the 9-[place]ican vascular sheath, and multiple 18-gauge core liver biopsy specimens were obtained and submitted to pathology. The transjugularliver biopsy system and 9-[place]ican vascular sheath were then removed from the [...] hepatic: 11 mmHg Wedge hepatic: 15 mmHg [facility]0OV9377A96VsxptajG[facility] 12 csrv4058-59-65 18:56:23 Test Item Value Reference Range Interpretation Comments Ventricular rate (test 62 code = 253) Atrial rate (test code 62 = 255) CO interval (test code 152 = 266) QRSD [...] of 27-JUN-2019 08:13,-No significant change was found- [place] GbjpukavgBiyxllmv5591-11-36 10:42:45 Test Item Value Reference Range Interpretation Comments Troponin (test code = <0.006 0-0.04 [place] [address]-8) having a myocar dial infarction, mara bhavin with all other appro priate clinical measur es and actions includi ng ECG and other diagnosti cs as appropriate, [...] creased by less than 0.020 ng/mL Lefty HaywoodGaloti smooth muscle Ab szenzt5411-34-98 14:32:24 Test Item Value Reference Range Interpretation Comments Anti smooth muscle Ab screen Not Detected Not-Detected (test code = 262) Lefty HaywoodjoseEVELYN Tunneled Dialysis Catheter Pwulpfubc1905-14-11 07:28:35Hm Interface, Radiology Results 06/24/2019 7:31 AM CSTPERFORMING RADIOLOGIST:Will Petersen MD ASSISTANTS:None. ANESTHESIA TYPE:Moderate sedation was administered by the procedure nurse and monitored by the procedure physician for a total fzqb-sq-yzkq sedation time of 8 minutes. Lidocaine 1% [...] cavoatrial junction. PLAN:-Catheter is ready for immediate use.[facility]-[id number] Methodlos alamos medical centerGram oxtcc8191-44-35 21:21:01Gram stain isolateRare WBC'sMany Gram negative rodsRare Gram positive cocci in pairs Comment: Specimen InformationSpecimen Source: DrainageSpecimen Site: Not otherwise specified [facility] MethodistAnti mitochondria vuzkol2026-58-09 15:12:05 Test Item Value Reference Range Interpretation Comments Anti mitochondria screen (test Not Detected Not-Detected code = 1686) [facility] Abdomen 1 Vw Ojokrtoi6516-61-16 18:02:41Hm Interface, Radiology Results 06/21/2019 6:05 PM CSTEXAMINATION: XR ABDOMEN 1 VW PORTABLECLINICAL HISTORY: Abd pain unspecified, BLQ abdominal pain rule out ileus or constipationCOMPARISON: Fluoroscopic images from 05/19/2008IMPRESSION:Artifact overlying the abdomen mildly limits evaluation.No dilated gas-filled loops of large or small bowel are noted. The patient is status post cholecystectomy.The bones of the abdomen and pelvis are unremarkable.The lung bases are clear.[facility] CITYL-[id number] MethodistProtein, urine, fnvszz1507-69-00 20:50:36 Test Item Value Reference Range Interpretation Comments Protein, urine random (test code = 584 mg/dL 2888-6) [place] MethodistCreatinine level, urine, fiusxf9164-54-64 20:39:45 Test Item Value Reference Range Interpretation Comments Creatinine, urine, random (test code 99 mg/dL = 88234-4) [place] MethodistHepatitis B surface Ab, vjhicmspqfzd1020-95-92 18:16:55 Test Item Value Reference Range Interpretation [...] public refer to MMWR March 292004/Vol. 54(No. 16);1-23 , and for healthcare work ers refer to MMWR March 292012/Vol. 62(No. 10);1-19 .Reference Interval: anti- HBs 9.99 IU/L or less .. ..... Gwjdgbao94.00 I U/L or greater .... PositiveResults greater than 1,000.00 I U/L are reported as gre ater than 1,000.00 IU/L. This assay should not be u sed for blood donor scr eening, associated re-e ntry protocols, or f or screening Human Cell, Tis sues and Cellular and Ti ssue-Based Products (HCT/P ).Performed by [facility],[address], [place] [address] ehu .[employer] , Roberto Almaguer MD, Lab. Director Lefty JohnsonUrine swsnghf6456-14-48 10:35:14 Test Item Value Reference Range Interpretation Comments Urine culture No growth Specimen isolate (test after 24 InformationSpe dana-farber cancer instituteen code = 47738-2) hours Source: Urin eSpecimen Site: Clean cat [place] ZfkdarrwtTNL9905-90-57 13:23:19 Test Item Value Reference Range Interpretation Comments ANNE screen (test Negative Negative Test perfor med using NOVA code = 550) Lite DAPI ANNE k it (Indirect Immunofluoresce nce Assay) for Anti-Nuclea r Antibody on EurekaA-Ly ser 160 Analyzer. [place] MethodistHepatitis B core antibody stggx1189-20-00 08:03:43 Test Item Value Reference Range Interpretation Comments Hepatitis B core total Ab (test Non-reactive Non-reactive code = 92429-9) [place] MethodistHepatitis B core antibody ZnE3704-15-10 08:03:43 Test Item Value Reference Range Interpretation Comments Hepatitis B core IgM (test code Non-reactive Non-reactive = 46587-8) [place] MethodistHepatitis A antibody HcU2632-98-99 08:03:43 Test Item Value Reference Range Interpretation Comments Hepatitis A IgM (test code = Non-reactive Non-reactive 97174-2) [place] MethodistHepatitis C bhmcwcal2360-18-07 08:03:43 Test Item Value Reference Range Interpretation Comments Hepatitis C Ab (test code = Non-reactive Non-reactive 89893-9) [place] MethodistAmmonia cqqgn9961-94-52 08:01:41 Test Item Value Reference Range Interpretation Comments Ammonia (test code = 1841-6) 63 umol/L 16-60 H Lab Interpretation (test code = Abnormal 71843-8) [place] MethodistHepatitis B surface twshcdi9291-04-51 07:28:04 Test Item Value Reference Range Interpretation Comments Hepatitis B surface Ag (test Non-reactive Non-reactive code = 5195-3) [place] MethodistHepatitis B surface qjmwsjtl3782-22-03 07:28:04 Test Item Value Reference Range Interpretation Comments Hepatitis B surface Ab (test Non-reactive Non-reactive code = 60500-7) [place] MethodistUrinalysis screen and microscopy, with reflex to culture 2019-06-18 07:26:53 Test Item Value Reference Range Interpretation Comments Specimen site (test code = Clean catch 7773919) Color, UA (test code = 5778-6) Yellow Appearance, UA (test code = Cloudy 5767-9) Specific gravity, UA (test code = 1.011 1.001-1.035 5811-5) pH, UA (test code = 5803-2) 5.0 5.0-8.5 Protein, UA (test code = 17049-5) 3+ Negative A Glucose, UA (test code = 83562-6) 1+ Negative A Ketones, UA (test code = 2514-8) Negative Negative Bilirubin, UA (test code = Negative Negative 5770-3) Blood, UA (test code = 5794-3) Small Negative A Nitrite, UA (test code = 5802-4) Negative Negative Urobilinogen, UA (test code = <2.0 <2.0 08891-2) Leukocyte esterase, UA (test code Negative Negative = 5799-2) WBC, UA (test code = 5821-4) 14 0- 1 /HPF H RBC, UA (test code = 36938-5) 1 0- 5 /HPF Bacteria, UA (test code = Few None seen 92343-6) WBC clumps, UA (test code = Few A 98511-5) Yeast, UA (test code = 96822-2) None seen Yeast with pseudohyphae, UA (test None seen code = 36715-9) Amorphous crystals (test code = Few 62977-5) Granular casts, UA (test code = 1 0- 1 /LPF 5793-5) Lab Interpretation (test code = Abnormal 30184-2) Lefty MethodistAlpha yguwuaonqsn2400-45-93 07:19:58 Test Item Value Reference Range Interpretation Comments Alpha fetoprotein 1.6 ng/mL 0-8.3 The Lexis 8000 AFP (test code = immunoassay was used. 45163-3) Results obtaine d with different assay methods or kits should not be used interchang eably and may be differen tTad HaywoodistCeruloplasmin xvyyp3329-43-83 07:17:32 Test Item Value Reference Range Interpretation Comments Ceruloplasmin (test code = 2064-4) 22 mg/dL 15-30 Lefty HaywoodPfsbvzvgeBUS6681-51-04 07:17:31 Test Item Value Reference Range Interpretation Comments GGT (test code = 2324-2) 80 U/L 0-59 H Lab Interpretation (test code = Abnormal 31683-8) Lefty MethodistAlpha-1 antitrypsin umooa0611-92-87 07:17:31 Test Item Value Reference Range Interpretation Comments Alpha-1 antitrypsin (test code = 166 mg/dL 90-200 6771-0) Lefty HaywoodistTissue transglutaminase Ab, JtK8111-88-66 17:53:26 Test Item Value Reference Range Interpretation Comments Tissue 1 U/mL 0-3 No further sheldon ac transglutaminase Ab, testing to be IgA (test code = 2324) perfo rmed.INTERPRETIV E INFORMATION: Tissue Transglutaminas e (tTG) Antibody, IgA3 U/mL or less: Negative4-10 U/ mL: Weak Jzzttjek12 U/mL or greater: PositivePresenc e of the [...] predic tive value for disease.Perform ed by [facility],[address] [facility], [place] [address] [email or web address], Roberto Almaguer MD, La b. Director BRENT (test code = BRENT) CO2 called with reae back to Yu Kwon/ JAMAR at 06/16/2019 08:04 by ENFTALY. Lefty JohnsonUS Abdomen Ftwgfafl9246-29-25 16:55:54Hm Interface, Radiology Results 06/17/2019 4:59 PM CSTEXAM: US ABDOMEN COMPLETECLINICAL [...] to participate in the care of your patient.[facility]-[id number] Methodist Abdominal Krvzvjx2132-46-09 16:52:25Hm Interface, Radiology Results 06/17/2019 4:55 PM CSTEXAMINATION: US ABDOMINAL DOPPLERCLINICAL [...] artery and vein are identified and are patent.[facility]-[id number] [facility] Renal 2019-06-17 14:29:49Hm Interface, Radiology Results 06/17/2019 2:32 PM CSTEXAMINATION: US RENALCLINICAL HISTORY: Flank pain stone disease suspectedCOMPARISON: None.IMPRESSION: The right kidney measures 12cm in length.The left kidney measures 13.9 cm in length.There is no renal mass, stone, cyst, or hydronephrosis. Echogenicity is normal.The urinary bladder is unremarkable.[id number] MethodistCeliac disease reflexive cascade 2019-06-17 07:55:20 Test Item Value Reference Range Interpretation Comments IgA (test code = 449 mg/dL 68-408 H Total IgA i s within 2458-8) or higher than established ran ges. Tissue Transglutaminas e, IgA to follow.REFERENC E INTERVAL: Immunoglobulin AAccess complet e set of age- and/or gender-specific reference inter vals for this test i n the [facility] Directory ([employer]).P erfor med by [employer],[address] [facility], [place] [address] wuc .[employer], Roberto Almaguer MD, La b. Director BRENT (test code = BRENT) CO2 called with reae back to Yu Kwon/ [facility] at 06/16/2019 08:04 by JN1. Lab Interpretation Abnormal (test code = 29991-1) [facility] Fallscal siccygjjeanm0902-13-70 13:53:32 Test Item Value Reference Range Interpretation Comments Fecal calprotectin (test code = 57.64 <15.6-120mg/kg 68521-0) [facility] carotid tgmeqq9591-32-46 20:05:00Interface, Radiology Results In - 06/15/2019 8:06 PM [facility] Vascular Ultrasound Laboratory Carotid Artery Duplex [address] [place] [address] For quality compliance manager purposes, the categorization of the degree of the stenosis of this exam is based on criteria described in the IAC carotid stenosis grading white paper( www.intersocietal.org/Vascular) and Thanh Nava., Александр CTadB., et al. Carotid artery stenosis: wagner-scale and Doppler US diagnosis--Society of Radiologists in Ultrasound Consensus Conference. Radiology. 2003 Nov; 229(2):340-6. Pat.Name: PAOLA ENGEL Rebecca.ID: [id number] .Date: 06/15/2019 Refer.MD: MILTON ELLINGTON MDExam Time: 11:04:00 AM Study Type:Carotid Height: 67in Weight: 212lb BSA: 2.07 m2 Age: 4 1965,53Y Sex: MALE BP: 116/68 Sonogrphr: Suad Greco, [facility], RVTPat. Stat.:Inpatient Room: [facility] Vol: ED, [facility] - 4: 22574 Echo Event ID:[id number] Order ID: [id number] Reason for Study:Pre-op evaluation History / Clinical:Smoker, CAD, S/p [place], DM, HTN, HLD, Liver cirrhosis,Chest pain, ObesityProcedures: [...] Left ICA/CCA Ratio ICA/CCA PSV 0.564 Sign 06/15/2019 08:05 Zachery Vallejo MD, [facility] MethodistSpirometry, diffusion, lung xwjvgxp0623-52-61 14:29:17 Test Item Value Reference Range Interpretation [...] Predicted 68.3 % (test code = 5445) Lefty MethodistCT Head Wo Ynpduutj8049-36-96 20:36:27Hm Interface, Radiology Results - 06/14/2019 8:39 PM CSTEXAM: CT HEAD WO [...] be obtained for further evaluation if clinically indicated.[facility]-[id number] Methodist Gastrointestinal hrdkv3550-48-71 13:46:31Gastrointestinal panelNegative for all pathogens tested:Negative for [...] Comment: Specimen InformationSpecimen Source: StoolSpecimen Site: Nonpreserved [facility] MethodistManual odjepoqnmykp7854-07-56 08:23:11 Test Item Value Reference Range Interpretation Comments Manual differential (test code = PERFORMED 96103-7) Neutrophils (test code = 53.0 % 39-69 86481-3) Lymphocytes (test code = 36.0 % 25-45 96739-4) Monocytes (test code = 81479-1) 6.0 % 0-10 Eosinophils (test code = 4.0 % 0-5 24577-0) Basophils (test code = 79209-2) 1.0 % 0-1 Metamyelocytes (test code = 0 % 740-1) Promyelocytes (test code = 0 % 783-1) Platelet slide review (test code Rebekah adequate = 61726-4) Anisocytosis (test code = 702-1) Moderate Polychromasia (test code = Moderate 43498-3) Ovalocytes (test code = 774-0) Moderate [facility] CenterHemoglobin H0n3754-26-99 08:03:34 Test Item Value Reference Range Interpretation Comments Hemoglobin A1C (test 12.6 % 4-5.6 H HbA1c c utoffs for code = 90286-5) diagnosing diabetes:4.0% - 5.6% = normal5.7% - 6.4% = increased risk for diabetes (prediabetes)9> =6.5% = ptliykus6Zjdy s for glycemic contro l (ADA 2016)< 7.0% Ta rget for non adults with win betes. More or less stringent targe ts may be appropriate for individual virginie ents. <7.5% Target for Children and adolescents wit h type 1 diabetes. Lab Interpretation (test Abnormal code = 81091-8) Lefty JohnsonTLeda, ctnx9875-83-48 06:34:11 Test Item Value Reference Range Interpretation Comments T4, free (test code = 3024-7) 0.8 ng/dL 0.9-1.7 L Lab Interpretation (test code = Abnormal 73104-8) [place] MethodistThyroid stimulating dcijvtl4754-98-78 06:34:11 Test Item Value Reference Range Interpretation Comments TSH (test code = 3016-3) 1.95 0.27- 4.20 uIU/mL [place] MethodistLipid hjqbv5300-01-03 06:30:05 Test Item Value Reference Interpretation Comments [...] (mg/dL) interpretation (test < 200 code = 69378-1) Desirable 200-239 Borderline -high >=240 Hi gh [...] mg/dL) Lab Interpretation Abnormal (test code = 59039-5) Lefty MethodistInfluenza jgbfbax8577-27-44 00:42:57 Test Item Value Reference Range Interpretation Comments Influenza Negative for Specimen antigen (test Influenza A/B InformationSp ecimen code = 88776-1) antigen. Source: [facility] Centerec[facility]: Right [place] MethodistXR Chest 1 Vw Irurpade8844-71-01 20:58:31Hm Interface, Radiology Results Incoming - 06/12/2019 9:01 PM CSTEXAMINATION: XR CHEST 1 VW PORTABLECLINICAL HISTORY: tachyCOMPARISON: 03/20/2018IMPRESSION:No radiographic evidence for acute cardiopulmonary process.Cardiomediastinal silhouette is within normal limits of size.No focal or confluent airspace consolidation is seen on this single AP plane to suggest acute pneumonia. No sizable pleural e ffusion. No pneumothorax identified.No acute osseous abnormalities are visualized.[facility]-[id number] MethodistB natriuretic olgxlwr3399-13-16 20:55:06 Test Item Value Reference Range Interpretation Comments BNP (test code = 53 pg/mL 0-100 20736-4) BRENT (test code = BRENT) GLU results called to and read back by TOSHIA PEREZ RN LIZBETH (name/location)at _ 06/12/2019 20:51 BY [place] MethodistComprehensive metabolic omtpa1477-85-07 20:50:02 Test Item Value Reference Range Interpretation Comments Sodium (test code = 137 135- 148 mEq/L 2951-2) Potassium (test code = 3.9 3.5- 5.0 mEq/L 2823-3) Chloride (test code = 103 98- 112 mEq/L 2075-0) CO2 (test code = 8-9) 19 24- 31 mEq/L L Anion gap (test code = 15@ANIO 7- 15 mEq/L 62253-9) BUN (test code = 3094-0) 25 mg/dL 6-20 H Creatinine (test code = 2.04 mg/dL 0.7-1.2 H 2160-0) Glucose (test code = 519 mg/dL 65-99 HH 2345-7) Calcium (test code = 10.1 mg/dL 8.3-10.2 26511-0) Protein (test code = 8.4 g/dL 6.3-8.3 H 9994.6-7.0 2885-2) g/dL1 pqvc3985.4-7.6 g/dL7 months-1mrtq942 .1- 7.3 g/dL1-2 xlzvu373.6-7.5 g/dL>3 gvann403.0-8.0 g/iA47-9740167. 3-8 .3 g/dL Albumin (test code = 3.1 g/dL 3.5-5 L 1751-7) A/G ratio (test code = 0.6 0.7-3.8 L 1759-0) Alkaline phosphatase 166 U/L 40-129 H (test code = 6768-6) AST (test code = 1920-8) 23 U/L 10-50 ALT (test code = 1742-6) 24 U/L 5-50 Total bilirubin (test 0.3 mg/dL 0-1.2 code = 1975-2) Lab Interpretation (test Abnormal code = 94487-8) [place] MethodistPartial thromboplastin time, gpzjbowgy8992-03-95 20:31:46 Test Item Value Reference Range Interpretation Comments PTT (test code = 28.1 23.0- 36.0 [place] [address]-7) unfractionated heparin is61.0-112.0 se conds which corresponds to Anti-Xa0.3-0.7 U/ml. [place] [facility] Preliminary Interpretation - Not an Mlmgd4809-83-11 19:50:09 Test Item Value Reference Range Interpretation Comments BRENT (test code = BRENT) Guillermo Jeffery MD 06/22/2019 10:44 [facility] Preliminary Interpretation - Not an OrderPerformed by: Guillermo Jeffery MDAuthorized by: Guillermo Jeffery MD ECG reviewed by ED Physician in the absence of a tax investigator: yes Previous ECG: Previous ECG: UnavailableInterpretat ion: Interpretation: abnormal Rate: ECG rate: 113 ECG rate assessment: tachycardic Rhythm: Rhythm: sinus tachycardia Ectopy: Ectopy: none QRS: QRS axis: Normal QRS intervals: NormalConduction: Conduction: abnormal Abnormal conduction: LPFB ST segments: ST segments: NormalOther findings: Other findings: prolonged qTc interval Lab Interpretation Abnormal (test code = 15310-4) [facility] 12 [id number] 14:04:08Interface, External Ris In - 01/12/2019 2:04 PM CDTVentricular Rate 77 BPMAtrial Rate 77 BPMP-R Interval 138 msQRS Duration 144 msQ-T Interval 442 msQTC Calculation(Bazett) 500 msP Camden 30 degreesR Camden 41 degreesT Camden 30 degreesNormal sinus rhythmLimb lead misplacementRight bundle branch blockNonspecific T wave abnormalityProlonged QTAbnormal ECGWhen compared with ECG of 10-JAN-2019 06:01,Limb leads are now misplacedConfirmed by MD JOEY, MAGALY ([id number]) on 01/12/2019 2:04:04 [facility]-Glucose [id number] 12:50:00 Test Item Value Reference Range Interpretation Comments POC-Glucose Meter (test 119 mg/dL 70-110 H TEST ED AT [facility] code = 1538) 67[address] [facility] 7703 0 Lab Interpretation (test Abnormal code = 34468-1) [facility]-GLUCOSE [id number] 12:50:00 Test Item Value Reference Range Interpretation Comments POC-GLUCOSE METER 119 mg/dL 70-110 H TESTED AT [facility] 6720 (BEAKER) (test code = [facility] 1538) [address] Basic Metabolic [id number] 06:16:00 Test Item Value Reference Range Interpretation Comments Sodium (test code = 139 meq/L 566-320 9761-2) Potassium (test code = 4.5 meq/L 3.5-5.1 2823-3) Chloride (test code = 109 meq/L 98-107 H 2075-0) CO2 (test code = 23 meq/L 22-29 2028-9) BUN (test code = 30 mg/dL 7-21 H 3094-0) Creatinine (test code = 1.87 mg/dL 0.57-1.25 H 2160-0) Glucose (test code = 219 mg/dL 70-105 H 2345-7) Calcium (test code = 8.9 mg/dL 8.4-10.2 85306-8) EGFR (test code = 38 mL/min/1.73 [place] [address]-4) NOT ACCURATE CREATININE CLEARANCE IN PREDICTING GLOMERULAR FILTRATION RATE . ESTIMATED GFR I S NOT APPLICABLE FOR DIALYSIS PATIEN TS. Lab Interpretation Abnormal (test code = 22253-7) [facility] [id number] 06:16:00 Test Item Value Reference Range Interpretation [...] TS. CBC with platelet count + automated [id number] 05:42:00 Test Item Value Reference Range Interpretation [...] 450 K/CU MM MPV (test code = 81383-1) 11.8 fL 9.4-12.4 nRBC (test code = [...] 2801) Lab Interpretation (test code = Abnormal 85169-3) [facility] W/PLT COUNT & AUTO [id number] 05:42:00 Test Item Value Reference Range Interpretation [...] PERCENT (BEAKER) (test code = 2801) POCT-GLUCOSE [id number] 20:34:00 Test Item Value Reference Range Interpretation Comments POC-GLUCOSE METER 205 mg/dL 70-110 H TESTED AT [facility] 6720 (BEAKER) (test code = [place] [facility] 1538) [address] CT, CHEST, WITHOUT [id number] 18:24:00FINAL REPORT TECHNIQUE: CT scan of the [...] CT follow-up is necessary. Signed: Elli Klein MDReport Verified Date/Time: 01/10/2019 18:24:57 Reading Location: [facility] C013Y CT Body Reading Room CT chest [...] Klein Verified Date/Time: 01/10/2019 18:24:57 Reading Location: [facility] C013Y CT Body Reading Room [facility] UCLAPOCT- GLUCOSE [id number] 17:31:00 Test Item Value Reference Range Interpretation Comments POC-GLUCOSE METER 183 mg/dL 70-110 H TESTED AT [facility] 67 (CHASITY) (test code = [place] 1538) [address] CT, BRAIN, WITHOUT [id number] 14:47:00FINAL REPORT CT, BRAIN, WITHOUT CONTRAST INDICATION: [...] for further thierry acterization. Signed: Lubna Lr Verified Date/Time: 01/10/2019 14:47:25 CT brain without IV [id number] 14:47:00Interface, External Ris In - 01/10/2019 2:49 [...] recommended for further characterization. Signed: Lubna Lr [facility] Verified Date/Time: 01/10/2019 14:47:25 [facility] C-[id number] 11:36:00 Test Item Value Reference Range Interpretation Comments D-Dimer, Quant (test code 2.14 <0.50 MG/L FEU H = 29090-5) BRENT (test code = BRENT) Intended Use: [...] range. Lab Interpretation (test Abnormal code = 79500-1) [facility][id number] 11:36:00 Test Item Value Reference Range Interpretation [...] within 95-100% range.RAD, CHEST, 1 VIEW, NON [id number] 08:17:00Reason for exam:->chest painShould this be performed [...] Montes Verified Date/Time: 01/10/2019 08:17:19 Reading Location: [address] Ortho Consult Reading Room XR chest 1 view portable / [id number] 08:17:00 Interface, External Ris In - 01/10/2019 [...] Montes Verified Date/Time: 01/10/2019 08:17:19 Reading Location: [facility] C013X Ortho Consult [facility] 2019[facility]10 07:02:00 Test Item Value Reference Range Interpretation Comments Troponin I (test code = 0.02 ng/mL 0-0.03 54164-5) BRENT (test code = BRENT) Troponin I [...] tachyarrhythmia. Lab Interpretation (test Normal code = 90640-7) [facility] [id number] 07:02:00 Test Item Value Reference Range Interpretation [...] Range Interpretation Comments BNP (test code = 87189-4) 130 pg/mL 0-100 H Lab Interpretation (test code = Abnormal 44035-9) [facility] NATRIURETIC FACTOR (BNP)2019-01-10 06:59:00 Test Item Value Reference Range Interpretation Comments B-TYPE NATRIURETIC PEPTIDE (BEAKER) 130 pg/mL 0-100 H (test code = 700) BASIC METABOLIC [id number] 06:51:00 Test Item Value Reference Range Interpretation [...] PATIEN TS. CBC W/PLT COUNT & AUTO [id number] 06:27:00 Test Item Value Reference Range Interpretation [...] LYMPHOCYTES ABSOLUTE COUNT 1.83 K/ L 1.32-3.57 (BEAKER) (test code = 414) MONOCYTES ABSOLUTE COUNT (BEAKER) 0.40 K/ L 0.30-0.82 (test code = 415) EOSINOPHILS ABSOLUTE COUNT 0.30 K/ L 0.04-0.54 (BEAKER) (test code = 416) BASOPHILS ABSOLUTE COUNT (BEAKER) 0.04 K/ L 0.01-0.08 (test code = 417) IMMATURE GRANULOCYTES-RELATIVE 0 % 0-1 PERCENT (BEAKER) (test code = 2801) TROPONIN [id number] 23:52:00 Test Item Value Reference Range Interpretation Comments TROPONIN I (BEAKER) (test code = 0.03 ng/mL 0.00-0.03 397) [...] acidosis, acute neurological disease, and persistent tachyarrhythmia.POCT-GLUCOSE [id number] 22:03:00 Test Item Value Reference Range Interpretation Comments POC-GLUCOSE METER 315 mg/dL 70-110 H TESTED AT [facility] 6720 ([facility] (test code = [facility] 1538) [address] POCT-GLUCOSE [id number] 20:02:00 Test Item Value Reference Range Interpretation Comments POC-GLUCOSE METER 250 mg/dL 70-110 H TESTED AT [facility] 6720 ([facility] (test code = [facility] 1538) [address] TROPONIN [id number] 19:05:00 Test Item Value Reference Range Interpretation Comments TROPONIN I (BEAKER) (test code = 0.04 ng/mL 0.00-0.03 H [...] acidosis, acute neurological disease, and persistent tachyarrhythmia.POCT-GLUCOSE [id number] 17:40:00 Test Item Value Reference Range Interpretation Comments POC-GLUCOSE METER 246 mg/dL 70-110 H TESTED AT [facility] 6720 (BEAKER) (test code = [facility] 1538) [address] POCT-GLUCOSE [id number] 08:11:00 Test Item Value Reference Range Interpretation Comments POC-GLUCOSE METER 243 mg/dL 70-110 H TESTED AT [place] [address] [facility] (test code = [facility] 1538) [address] BASIC METABOLIC [id number] 05:04:00 Test Item Value Reference Range Interpretation [...] GFR I S NOT APPLICABLE FOR DIALYSIS PATIASHLY FLYNN [id number] 04:56:00 Test Item Value Reference Range Interpretation Comments PTT (test code = 33591-1) 35.0 22.5- 36.0 seconds Lab Interpretation (test code = Normal 52770-6) [facility] 04:56:00 Test Item Value Reference Range Interpretation Comments PARTIAL THROMBOPLASTIN TIME 35.0 seconds 22.5-36.0 (BEAKER) (test code = 760) CBC W/PLT COUNT & AUTO [id number] 04:48:00 Test Item Value Reference Range Interpretation [...] PERCENT (BEAKER) (test code = 2801) POCT-GLUCOSE [id number] 22:08:00 Test Item Value Reference Range Interpretation Comments POC-GLUCOSE METER 364 mg/dL 70-110 H Notified R N MD/TESTED (BEAKER) (test code = AT [address] 1538) [place] [address] 0 POCT-GLUCOSE [id number] 17:05:00 Test Item Value Reference Range Interpretation Comments POC-GLUCOSE METER 389 mg/dL 70-110 H Notified R N MD/TESTED (BEAKER) (test code = AT [address] 1538) [place] [address] 0 BASIC METABOLIC [id number] 16:28:00 Test Item Value Reference Range Interpretation [...] S NOT APPLICABLE FOR DIALYSIS PATIEN TS. PT/[id number] 16:26:00 Test Item Value Reference Range Interpretation Comments Protime (test code = 13.4 11.9- 14.2 5902-2) seconds INR (test code = 1.1 <=5.9 6301-6) PTT (test code = 32.0 22.5- 36.0 31630-7) seconds BRENT (test code = BRENT) Effective 09/23/2018: PT Reference Range ChangeNew: 11.9-14.2 Previous: 11.7-14.7 RECOMMENDED COUMADIN/WARFARIN INR THERAPY RANGESSTANDARD DOSE: 2.0-3.0 Includes: PROPHYLAXIS for venous thrombosis, systemic embolization; TREATMENT for venous thrombosis and/or pulmonary embolus.HIGH RISK: Target INR is 2.5-3.5 for patients wiht mechanical heart valves. Lab Interpretation Normal (test code = 06366-0) [facility]PT/[id number] 16:26:00 Test Item Value Reference Range Interpretation [...] INR is2.5-3.5 for patients wiht mechanical heart valves.[id number] 16:26:00 Test Item Value Reference Range Interpretation Comments PARTIAL THROMBOPLASTIN TIME 32.0 seconds 22.5-36.0 (BEAKER) (test code = 760) POCT-GLUCOSE [id number] 12:06:00 Test Item Value Reference Range Interpretation Comments POC-GLUCOSE METER 321 mg/dL 70-110 H Notified Rohith Harrison MD/TESTED (CHASITY) (test code = AT 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 KARYN Maradiaga Procedure Type of Study TTE procedure:2DECHO W/CONTRAST [...] CO: 5.26 l/min LVOT CI: 2.47 l/min/m^2[facility] [id number] 08:29:00 Test Item Value Reference Range Interpretation Comments POC-GLUCOSE METER 263 mg/dL 70-110 H TESTED AT [facility] 6720 ([facility] (test code = [place] 1538) [address] [id number] 04:54:00 Test Item Value Reference Range Interpretation Comments PARTIAL THROMBOPLASTIN TIME 31.0 seconds 22.5-36.0 ([facility] (test code = 760) CBC W/PLT COUNT & AUTO [id number] 04:43:00 Test Item Value Reference Range Interpretation Comments WHITE BLOOD CELL COUNT ([facility] 6.6 K/ L 3.5-10.5 (test code = 775) RED BLOOD CELL COUNT ([facility] 3.45 M/ L 4.63-6.08 L (test code = 761) HEMOGLOBIN (AKER) (test code = 10.9 GM/DL 13.7-17.5 L 410) HEMATOCRIT ([facility] (test code = 30.8 % 40.1-51.0 L 411) MEAN CORPUSCULAR VOLUME ([facility] 89.3 fL 79.0-92.2 (test code = 753) MEAN CORPUSCULAR HEMOGLOBIN 31.6 pg 25.7-32.2 (AKER) (test code = 751) MEAN CORPUSCULAR HEMOGLOBIN CONC 35.4 GM/DL 32.3-36.5 (AKER) (test code = 752) RED CELL DISTRIBUTION WIDTH 13.5 % 11.6-14.4 (AKER) (test code = 412) PLATELET COUNT ([facility] (test 138 K/CU MM 150-450 L code [...] PERCENT (BEAKER) (test code = 2801) POCT-GLUCOSE [id number] 22:11:00 Test Item Value Reference Range Interpretation Comments POC-GLUCOSE METER 319 mg/dL 70-110 H Notified R Christy BOSS/TESTED ([facility] (test code = AT [place] [address] [place] [address]) [facility] 7703 0 [id number] 20:11:00 Test Item Value Reference Range Interpretation Comments PARTIAL THROMBOPLASTIN TIME 33.3 seconds 22.5-36.0 ([facility] (test code = 760) POCT-GLUCOSE [id number] 18:49:00 Test Item Value Reference Range Interpretation Comments POC-GLUCOSE METER 309 mg/dL 70-110 H TESTED AT [place] [address] ([facility] (test code = [place] [facility] 1538) [address] POCT-GLUCOSE [id number] 14:48:00 Test Item Value Reference Range Interpretation Comments POC-GLUCOSE METER 161 mg/dL 70-110 H TESTED AT [place] [address] ([facility] (test code = [place] 1538) [address] POCT-GLUCOSE [id number] 14:46:00 Test Item Value Reference Range Interpretation Comments POC-GLUCOSE METER 159 mg/dL 70-110 H TESTED AT [place] [address] ([facility] (test code = [place] 1538) [address] TROPONIN [id number] 13:58:00 Test Item Value Reference Range Interpretation Comments TROPONIN I ([facility] (test code = 397) < ng/mL 0.00-0.03 [...] failure, acidosis, acute neurological disease, and persistent tachyarrhythmia.[id number] 12:25:00 Test Item Value Reference Range Interpretation Comments PARTIAL THROMBOPLASTIN TIME 30.3 seconds 22.5-36.0 ([facility] (test code = 760) POCT-GLUCOSE [id number] 12:18:00 Test Item Value Reference Range Interpretation Comments POC-GLUCOSE METER 168 mg/dL 70-110 H TESTED AT [place] [address] ([facility] (test code = [place] [facility] 1538) [address] POCT-GLUCOSE [id number] 11:06:00 Test Item Value Reference Range Interpretation Comments POC-GLUCOSE METER 180 mg/dL 70-110 H TESTED AT [place] [address] ([facility] (test code = [place] [facility] 1538) [address] POCT-GLUCOSE [id number] 10:21:00 Test Item Value Reference Range Interpretation Comments POC-GLUCOSE METER 195 mg/dL 70-110 H TESTED AT [place] [address] ([facility] (test code = [place] [facility] 1538) [address] POCT-GLUCOSE [id number] 10:21:00 Test Item Value Reference Range Interpretation Comments POC-GLUCOSE METER 180 mg/dL 70-110 H TESTED AT [place] [address] ([facility] (test code = [place] [facility] 1538) [address] POCT-GLUCOSE [id number] 08:06:00 Test Item Value Reference Range Interpretation Comments POC-GLUCOSE METER 218 mg/dL 70-110 H TESTED AT [place] [address] ([facility] (test code = [place] [facility] 1538) [address] TROPONIN [id number] 07:00:00 Test Item Value Reference Range Interpretation Comments TROPONIN I ([facility] (test code = 0.01 ng/mL 0.00-0.03 397) [...] afterwardsOnce on admission and Daily AM afterwardsPOCT-GLUCOSE [id number] 06:58:00 Test Item Value Reference Range Interpretation Comments POC-GLUCOSE METER 248 mg/dL 70-110 H TESTED AT [place] [address] ([facility] (test code = [place] [facility] 1538) [address] [id number] 06:54:00 Test Item Value Reference Range Interpretation Comments Magnesium (test code = 2.2 mg/dL 1.6-2.6 03096-3) BRENT (test code = BRENT) Once on admission and Daily AM afterwardsOnce on admission and Daily AM afterwardsOnce on admission and Daily AM afterwards Lab Interpretation Normal (test code = 25723-1) [facility]2019-[facility] 06:54:00 Test Item Value Reference Range Interpretation Comments Phosphorus (test code = 2.5 mg/dL 2.3-4.7 2777-1) BRENT (test code = BRENT) Once on admission and Daily AM afterwardsOnce on admission and Daily AM afterwardsOnce on admission and Daily AM afterwards Lab Interpretation Normal (test code = 19984-3) [facility]OSPHORUS2019-09-12 06:54:00 Test Item Value Reference Range Interpretation Comments PHOSPHORUS ([facility] (test code = 2.5 mg/dL 2.3-4.7 604) Once on admission and Daily AM afterwardsOnce on admission and Daily AM afterwardsOnce on admission and Daily AM [id number] 06:54:00 Test Item Value Reference Range Interpretation [...] Daily AM afterwardsCBC W/PLT COUNT & AUTO [id number] 06:42:00 Test Item Value Reference Range Interpretation [...] 0-1 PERCENT (BEAKER) (test code = 2801) [id number] 06:28:00 Test Item Value Reference Range Interpretation Comments PARTIAL THROMBOPLASTIN TIME 30.6 seconds 22.5-36.0 (BEAKER) (test code = 760) POCT-GLUCOSE [id number] 06:01:00 Test Item Value Reference Range Interpretation Comments POC-GLUCOSE METER 266 mg/dL 70-110 H TESTED AT [facility] 6720 ([facility] (test code = [place] 1538) [address] POCT-GLUCOSE [id number] 04:57:00 Test Item Value Reference Range Interpretation Comments POC-GLUCOSE METER 271 mg/dL 70-110 H TESTED AT [place] [address] ([facility] (test code = [place] [facility] 1538) [address] POCT-GLUCOSE [id number] 04:05:00 Test Item Value Reference Range Interpretation Comments POC-GLUCOSE METER 308 mg/dL 70-110 H Notified Rohith Harrison MD/TESTED ([facility] (test code = AT [place] [address]) [facility] 7703 0 POCT-GLUCOSE [id number] 02:57:00 Test Item Value Reference Range Interpretation Comments POC-GLUCOSE METER 343 mg/dL 70-110 H Notified Rohith Harrison MD/TESTED ([facility] (test code = AT [place] [address]) [facility] 7703 0 RAD, CHEST, 1 VIEW, NON [id number] 02:27:00Reason for exam:->mediastinal wideningShould this be performed [...] osseous structures are intact. Signed: Emmanuelle Kline [facility] Verified Date/Time: 01/07/2019 02:27:45 POCT-GLUCOSE [id number] 01:57:00 Test Item Value Reference Range Interpretation Comments POC-GLUCOSE METER 369 mg/dL 70-110 H TESTED AT [place] [address] ([facility] (test code = [place] [address]) [address] POCT-GLUCOSE [id number] 01:06:00 Test Item Value Reference Range Interpretation Comments POC-GLUCOSE METER 395 mg/dL 70-110 H Notified Rohith Harrison MD/TESTED ([facility] (test code = AT [place] [address]) [facility] 7703 0 TROPONIN [id number] 00:36:00 Test Item Value Reference Range Interpretation [...] Reference Range Interpretation Comments B-TYPE NATRIURETIC PEPTIDE ([facility] 151 pg/mL 0-100 H (test code = 700) [id number] 00:19:00 Test Item Value Reference Range Interpretation Comments PARTIAL THROMBOPLASTIN TIME 28.2 seconds 22.5-36.0 ([facility] (test code = 760) Prior to initiating heparinPOCT-GLUCOSE [id number] 00:16:00 Test Item Value Reference Range Interpretation Comments POC-GLUCOSE METER 413 mg/dL 70-110 HH TESTED AT [place] [address] ([facility] (test code = [place] [address]) [address] POCT-GLUCOSE [id number] 23:10:00 Test Item Value Reference Range Interpretation Comments POC-GLUCOSE METER 452 mg/dL 70-110 HH Notified Rohith Harrison MD/TESTED ([facility] (test code = AT [place] [address]) [facility] 7703 0 POCT-GLUCOSE [id number] 22:06:00 Test Item Value Reference Range Interpretation Comments POC-GLUCOSE METER 383 mg/dL 70-110 H TESTED AT [place] [address] ([facility] (test code = [place] [address]) [address] CT, BRAIN, WITHOUT [id number] 21:38:00FINAL REPORT CT Head without contrast CLINICAL [...] at time of dictation. Signed: Emmanuelle Kline [facility] Verified Date/Time: 01/06/2019 21:38:52 [facility] METABOLIC [id number] 21:12:00 Test Item Value Reference Range Interpretation [...] NOT APPLICABLE FOR DIALYSIS PATIEN TS. Hemoglobin [id number] 20:17:00 Test Item Value Reference Range Interpretation Comments Hemoglobin A1C (test code = 4548-4) 11.9 % 4.3-6.1 H Lab Interpretation (test code = Abnormal 40839-1) [facility] [id number] 20:17:00 Test Item Value Reference Range Interpretation Comments HEMOGLOBIN A1C (BEAKER) (test code = 11.9 % 4.3-6.1 H 368) TROPONIN [id number] 19:52:00 Test Item Value Reference Range Interpretation [...] acute neurological disease, and persistent tachyarrhythmia.Hepatic function [id number] 19:46:00 Test Item Value Reference Range Interpretation Comments Protein, Total (test 6.3 6.0- 8.3 gm/dL Speci men code = 2885-2) slightly hemolyzed Albumin (test code = 2.8 g/dL 3.5-5 [place] 07350-9) slightly hemolyzed Total Bilirubin (test 0.4 mg/dL 0.2-1.2 Specim en code = 1975-2) slightly hemolyzed Bilirubin, Direct 0.1 mg/dL 0.1-0.5 Specimen (test code = 1967-7) slightl y hemolyzed Alkaline Phosphatase 104 U/L 40-150 (test code = 6768-6) AST (test code = 29 U/L 5-34 Specimen 1920-8) slightly hemolyzed ALT (test code = 23 U/L 6-55 Specimen 1742-6) slightly hemolyzed BRENT (test code = BRENT) Specimen moderately lipemic Lab Interpretation Abnormal (test code = 96449-3) [facility]AT[facility] FUNCTION [id number] 19:46:00 Test Item Value Reference Range Interpretation [...] (test code = 347) hemolyzed Specimen moderately [id number] 19:32:00 Test Item Value Reference Range Interpretation Comments PARTIAL THROMBOPLASTIN TIME 28.1 seconds 22.5-36.0 (BEAKER) (test code = 760) Prothrombin time/[id number] 19:31:00 Test Item Value Reference Range Interpretation [...] valves. Lab Interpretation Abnormal (test code = 13681-5) [facility] HospitalPROTHROMBIN TIME/[id number] 19:31:00 Test Item Value Reference Range Interpretation [...] mechanical heart valves.CBC W/PLT COUNT & AUTO [id number] 19:25:00 Test Item Value Reference Range Interpretation [...] PERCENT (BEAKER) (test code = 2801) POCT-GLUCOSE [id number] 17:51:00 Test Item Value Reference Range Interpretation Comments POC-GLUCOSE METER 342 mg/dL 70-110 H Notified R N MD/TESTED (CHASITY) (test code = AT [facility] 67[address] [facility] 7513) [facility] [address]
--- OUTSIDE RECORDS SUMMARY | 2019-11-21 06:19 | XMS REPORT | Summary of Care ---
:1965 Author Organization [facility] Address [address] [place] [address] Care Team Providers Name Role Phone Maria E Ornelas Primary Care Provider Encounter Details Date Type Department Care Team Description 10/01/2019 Orders Only [facility] Doctor Unassigned, No [address] [facility] [place] [address] [address] [place] [address] Allergies Active Allergy Reactions Severity Noted Date Comments Morphine Hives, Itching 06/25/2013 Hydrocodone-Acetaminophen Hives, Itching 06/25/2013 documented as of this encounter (statuses as of 10/28/2019) Medications Medication Sig Dispensed Refills Start Date End Date Status aspirin 325 mg tablet Take 325 mg by 0 Active mouth daily. TRAMADOL 50 mg tablet TAKE ONE TABLET 120 tablet 0 08/23/2016 Active BY MOUTH EVERY 6 HOURS NEEDED FOR PAIN (SCALE 4-6) CITALOPRAM 20 mg tablet TAKE 1 TABLET BY 30 tablet 3 7 Active MOUTH EVERY DAY. clopidogrel 75 mg [...] as of this encounter (statuses as of 10/28/2019) Active Problems Problem Noted Date Seizures 05/26/2019 History of CVA (cerebrovascular accident) 05/26/2019 History of AK (myocardial infarction) 05/26/2019 Encounter for screening colonoscopy 05/26/2019 Coronary artery disease involving [place] coronary tho ry of [place] heart 05/26/2019 without angina pectoris Cirrhosis of liver without ascites, unspecified hepati c cirrhosis type 05/26/2019 Diabetic polyneuropathy associated with type 2 diabete s mellitus 05/26/2019 CKD (chronic kidney disease), stage III 05/26/2019 Tobacco use disorder 05/26/2019 Type 2 diabetes mellitus with retinopathy of both eyes , with long-term 02/19/2016 current use of insulin, macular edema presence unspeci fied, unspecified retinopathy severity Essential hypertension 02/19/2016 Mixed hyperlipidemia 02/19/2016 Left knee pain 07/06/2015 documented as of this encounter (statuses as of 10/28/2019) Immunizations Name Administration Dates Next Due TDAP 05/26/2019 documented as of this encounter Social [...] Treatment Date Type Specialty Care Team Description 10/29/2019 Office Visit Pulmonary Disease Waqas Menjivar, [address] [place] [address] Health Maintenance Due Date Last Done Comments PNEUMOCOCCAL 0-64 YEARS 07/30/1973 COMBINED SERIES (1 of 1 - PPSV23) LDL-C 07/30/1977 URINE MICROALBUMIN 07/30/1977 FOOT EXAM 07/30/1985 HgA1C 12/23/2013 06/25/2013 COLONOSCOPY 07/30/2017 Zoster Recombinant Vaccine 07/30/2017 (SHINGRIX) (1 of 2) EYE EXAM 02/27/2020 02/26/2019 CREATININE (SERUM) 05/14/2020 05/14/2019, 07/10/2017, 06/07/2015, Additional history exists Depression Screening 05/26/2020 05/26/2019 INFLUENZA VACCINE (#1) 2020 Postponed from 12/28/2019 (Refu sed) DTaP,Tdap,and Td Vaccines 05/26/2029 05/26/2019 (2 - Td) documented as of this encounter Procedures Procedure Name Priority Date/Time Associated Diagnosis Comme nts EXTERNAL PROVIDER - ADC Routine 10/01/2019 12:01 AM CDT REFERRAL documented in this encounter Results Not on filedocumented in this encounter Insurance Payer Benefit Plan / Subscriber ID Effective Phone Address T ype Group Dates [facility] [id number] 2019-Prese [phone] H[address] HEALTH [employer] HEALTH CHOICE nt [phone] [place] [address] BCBS OF [facility] BCBS BLUE [id number] 2019- [phone] [address] HMO ADVANTAGE HMO [id number] [place] [address] documented as of this encounter
[2019-11-21 06:41] LABS: Absolute Lymphocytes (CBC) 1.8 K/uL (0.7-4.9); Basophils % 1.1 % (0-1.3); Hematocrit 38.3 % (39.6-49.0); Lymphocytes % 28.3 % (15.3-44.8); MPV 11.4 fL (7.6-11.3); Protime INR 0.87; RBC Red Blood Cell Count 4.04 M/uL (4.33-5.43)
[2019-11-21] MEDS ORDERED: ONDANSETRON 4 MG/2 ML VIAL ONE (07:00)
[2019-11-21 07:01] LABS: ALT/SGPT 34 U/L (12-78); AST/SGOT 23 U/L (15-37); Albumin 2.5 g/dL (3.4-5.0); Alkaline Phosphatase 162 U/L (45-117); BUN Blood Urea Nitrogen 22 mg/dL (7-18); Bicarbonate 24 mmol/L (21-32); Bilirubin Direct < 0.1 mg/dL (0-0.2); Bilirubin Total 0.3 mg/dL (0.2-1.0); Magnesium 2.1 mg/dL (1.8-2.4); NT PRO-BNP 2901 pg/mL (<125); Potassium 4.1 mmol/L (3.5-5.1); Protein, Total 6.6 g/dL (6.4-8.2); Sodium Level 138 mmol/L (136-145); Troponin (Emerg Dept Use Only) 0.02 ng/mL (0.0-0.045)
[2019-11-21 07:03] LABS: Glucose Level 426 mg/dL (74-106)
[2019-11-21] MEDS ORDERED: MORPHINE 4 MG/ML SYR ONE (07:07)
[2019-11-21] MEDS ORDERED: FENTANYL CITR 100 MCG/2 ML ONE (07:11)
--- NOTE | 2019-11-21 10:04 | ER ---
Nurse's Notes [facility] Name: Wero Kwong Age: 54 yrs Sex: Male : 1965 Arrival Date: 11/21/2019 Time: 05:56 Bed 8 Private MD: Diagnosis: Volume overload;Generalized intra-abdominal and pelvic swelling, mass and lump;Chest pain, unspecified;Chronic kidney disease (CKD)-dialysis patient Presentation: 11/20 06:13 Chief complaint: Patient states: Reports he has noticed increased swelling in the past ea week, reports he went to dialysis yesterday and had 3kg of fluid pulled. Pt states "I feel my belly is so big it is hurting my chest". Coronavirus screen: Patient denies a cough. Patient denies shortness of breath or difficulty breathing. Patient denies measured and/or subjective temperature greater than 100.4F prior to today's visit. Patient denies travel on a cruise ship or to a country the [facility] currently lists as an affected area. Patient reports contact with known and/or suspected case of COVID-19. Ebola Screen: No symptoms or risks identified at this time. Initial Sepsis Screen: Does the patient meet any 2 criteria? No. Patient's initial sepsis screen is negative. Does the patient have a suspected source of infection? No. Patient's initial sepsis screen is negative. Risk Assessment: Do you want to hurt yourself or someone else? Patient reports no desire to harm self or others. Onset of symptoms was November 21, 2019. 06:13 Method Of Arrival: Wheelchair ea 06:13 Acuity: MARIA DEL ROSARIO 3 ea Triage Assessment: 06:16 General: Appears uncomfortable, Behavior is appropriate for age. Pain: Complains of ea pain in chest and abdomen. Neuro: Level of Consciousness is awake, alert, obeys commands, Oriented to person, place, time, situation. Cardiovascular: Dialysis shunt: in the anterior aspect of right upper chest. Respiratory: Airway is patent Respiratory effort is even, unlabored, Respiratory pattern is regular, symmetrical. GI: Abdomen is round distended. Derm: Skin is pink, warm \\T\\ dry. Historical: - Allergies: 06:19 Codeine; ea 06:19 Hydrocodone-Acetaminophen; ea 06:19 Morphine; ea - Home Meds: 06:19 travatan eye drops [Active]; acetazolamide 500 mg Oral cpER 1 cap 2 times per day ea [Active]; citalopram 20 mg tab 1 tab once daily [Active]; spironolactone 25 mg Oral tab nightly [Active]; simvastatin 40 mg Oral tab 1 tab once daily [Active]; lisinopril 10 mg Oral tab 1 tab once daily [Active]; levetiracetam 500 mg Oral tab 1 tab 2 times per day [Active]; Humulin 70/30 100 unit/mL (70-30) Sub-Q susp [Active]; gabapentin 300 mg Oral cap 3 caps twice a day [Active]; clopidogrel 75 mg Oral tab 1 tab once daily [Active]; furosemide 40 mg Oral tab 1 tab 2 times per day [Active]; 06:26 Toujeo SoloStar 300 unit/mL (1.5 mL) subcutaneous inpn 65 unit daily [Active]; Novolog lp1 100 unit/mL Sub-Q soln three times a day [Active]; - PMHx: 06:19 Seizures; neuropathy; Myocardial infarction; kidney failure; Hypertension; High ea Cholesterol; dialysis (); Diabetes - IDDM; CVA; Cirrhosis; CHF; CAD; - PSHx: 06:19 dialysis prot right chest; ea - Immunization history:: Adult Immunizations up to date. - Social history:: Smoking status: unknown. Screenin:16 Abuse screen: Denies threats or abuse. Nutritional screening: No deficits noted. ea Tuberculosis screening: No symptoms or risk factors identified. Fall Risk None identified. Assessment: 06:23 Reassessment: Spoke with patient's , states that his daughter did test COVID lp1 positive and lives in the home;. 07:00 Reassessment: RECD REPORT FROM GERA LEACH. 54YO HM P/W ABD PAIN AND DISTENSION. PT IS bp ESRD PT, LAST HD Y/D, 3KG FLUID REMOVED. 07:00 General: SEE TRIAGE NOTE. bp 07:43 Reassessment: Patient appears in no apparent distress at this time. Pt requesting ERP jl7 to bedside. Shaina Hawkins at bedside, pt states "I'm around a lot of people at dialysis and my daughter tested positive for COVID and she lives at home." Pt requesting to be tested for COVID, denies fever, SOB, cough at this time. ERP agrees to test pt. 09:00 Reassessment: Patient appears in no apparent distress at this time. No changes from jl7 previously documented assessment. Patient and/or family updated on plan of care and expected duration. Pain level reassessed. Patient is alert, oriented x 3, equal unlabored respirations, skin warm/dry/pink. 09:35 Reassessment: ERP at bedside discussing results and POC. jl7 Vital Signs: 06:13 BP 178 / 88; Pulse 68; Resp 19; Temp 97.3; Pulse Ox 98% on R/A; Weight 105.69 kg; ea Height 5 ft. 7 in. (170.18 cm); 07:00 BP 180 / 90; Pulse 68; Resp 15; Pulse Ox 96% ; bp 08:00 BP 152 / 75; Pulse 66; Resp 17; Pulse Ox 96% ; jl7 09:00 BP 152 / 75; Pulse 69; Resp 17; Pulse Ox 98% ; jl7 10:06 BP 152 / 79; Pulse 70; Resp 19; Pulse Ox 98% ; jl7 06:13 Body Mass Index 36.49 (105.69 kg, 170.18 cm) ED Course: 05:56 Patient arrived in ED. ds1 06:02 Ross Wilson NP is PHCP. pm1 06:02 Milton Mims MD is Attending Physician. pm1 06:16 Triage completed. ea 06:16 Patient has correct armband on for positive identification. Bed in low position. Call ea light in reach. Side rails up X2. color television console monitor on. Pulse ox on. NIBP on. 06:18 Arm band placed on right wrist. Patient placed in an exam room, on a stretcher, on ea quality assurance monitor chassis, on pulse oximetry. 06:19 No provider procedures requiring assistance completed. Inserted saline lock: 20 gauge mg2 in right wrist, using aseptic technique. Blood collected. 06:20 Initial lab(s) drawn, by ED staff, sent to lab. jl7 06:31 EKG done, by ED staff, reviewed by Milton Mims MD. ds4 07:31 Stephen Victor, RN is Primary Nurse. jl7 07:38 XRAY Chest (1 view) In Process Unspecified. EDMS 08:30 COVID-19 swab sent to lab. jl7 10:06 IV discontinued, intact, bleeding controlled, No redness/swelling at site. Pressure jl7 dressing applied. Administered Medications: 06:53 Drug: Zofran (Ondansetron) 4 mg Route: IVP; Site: right wrist; mg2 07:10 Follow up: Response: No adverse reaction; Nausea is decreased jl7 06:58 Not Given (Physician Discretion): morphine 4 mg IVP once; RASS on ADMIN: Combtv4, Very pm1 Agttd3, Agttd2, Rstlss1, AlertClm0, Drwsy-1, Lt Sdtn-2, Mod Sdtn-3, Dp Sdtn-4, UnArsble-5 07:10 Drug: fentaNYL (PF) 50 mcg Route: IVP; Site: right wrist; mg2 08:00 Follow up: Response: No adverse reaction; Pain is decreased jl7 Outcome: 10:03 Discharge ordered by MD. pm1 10:11 Discharged to home via wheelchair. jl7 10:11 Condition: stable 10:11 Discharge instructions given to patient, Instructed on discharge instructions, follow up and referral plans. Demonstrated understanding of instructions, follow-up care. 10:27 Patient left the ED. jl7 Signatures: Dispatcher [employer] EDTN KeitaChelsea garcia ds1 Shellie Escobedo RN RN lp1 Misbah Gonzales ds4 Ross Wilson NP ELECTRICAL MAINTENANCE ENGINEER pm1 Stephen Victor RN RN jl7 Suad Melendez RN RN ea Peltier, Brian, RN RN bp Darrin Gerber RN RN mg2 Corrections: (The following items were deleted from the chart) 07:42 06:34 GI: mg2 bp
--- NOTE | 2019-11-21 10:04 | EDPHYS ---
Physician Documentation [facility] Name: Wero Kwong Age: 54 yrs Sex: Male : 1965 Arrival Date: 11/21/2019 Time: 05:56 Bed 8 Private MD: ED Physician Milton Mims HPI: 11/20 06:19 This 54 yrs old Male presents to ER via Wheelchair with complaints of pm1 Abdominal Swelling. 06:19 The patient presents with abdominal distention that is diffuse. pm1 06:19 Onset: The symptoms/episode began/occurred 1 week(s) ago. The symptoms do not radiate. pm1 Associated signs and symptoms: Pertinent positives: chest pain, Pertinent negatives: constipation, diarrhea, fever, nausea, shortness of breath, vomiting. Modifying factors: The symptoms are alleviated by nothing, the symptoms are aggravated by Noncompliance with fluid restrictions. Severity of pain: in the emergency department the pain is actually worse. Patient with dialysis treatment yesterday. Historical: - Allergies: 06:19 Codeine; ea 06:19 Hydrocodone-Acetaminophen; ea 06:19 Morphine; ea - Home Meds: 06:19 travatan eye drops [Active]; acetazolamide 500 mg Oral cpER 1 cap 2 times per day ea [Active]; citalopram 20 mg tab 1 tab once daily [Active]; spironolactone 25 mg Oral tab nightly [Active]; simvastatin 40 mg Oral tab 1 tab once daily [Active]; lisinopril 10 mg Oral tab 1 tab once daily [Active]; levetiracetam 500 mg Oral tab 1 tab 2 times per day [Active]; Humulin 70/30 100 unit/mL (70-30) Sub-Q susp [Active]; gabapentin 300 mg Oral cap 3 caps twice a day [Active]; clopidogrel 75 mg Oral tab 1 tab once daily [Active]; furosemide 40 mg Oral tab 1 tab 2 times per day [Active]; 06:26 Toujeo SoloStar 300 unit/mL (1.5 mL) subcutaneous inpn 65 unit daily [Active]; Novolog lp1 100 unit/mL Sub-Q soln three times a day [Active]; - PMHx: 06:19 Seizures; neuropathy; Myocardial infarction; kidney failure; Hypertension; High ea Cholesterol; dialysis (); Diabetes - IDDM; CVA; Cirrhosis; CHF; CAD; - PSHx: 06:19 dialysis prot right chest; ea - Immunization history:: Adult Immunizations up to date. - Social history:: Smoking status: unknown. ROS: 06:19 Constitutional: Negative for fever, chills, and weight loss, Eyes: Negative for injury, pm1 pain, redness, and discharge, ENT: Negative for injury, pain, and discharge, Neck: Negative for injury, pain, and swelling. 06:19 Respiratory: Negative for shortness of breath, cough, wheezing, and pleuritic chest pain. 06:19 Back: Negative for injury and pain, MS/Extremity: Negative for injury and deformity, Skin: Negative for injury, rash, and discoloration, Neuro: Negative for headache, weakness, numbness, tingling, and seizure. 06:19 Cardiovascular: Positive for chest pain, edema, Negative for palpitations. 06:19 Abdomen/GI: Positive for abdominal pain, abdominal distension, Negative for nausea, vomiting, and diarrhea, constipation. Exam: 06:19 Constitutional: This is a well developed, well nourished patient who is awake, alert, pm1 and in no acute distress. Head/Face: Normocephalic, atraumatic. Chest/axilla: Normal chest wall appearance and motion. Nontender with no deformity. No lesions are appreciated. 06:19 Back: No spinal tenderness. No costovertebral tenderness. Full range of motion. Skin: Warm, dry with normal turgor. Normal color with no rashes, no lesions, and no evidence of cellulitis. MS/ Extremity: Pulses equal, no cyanosis. Neurovascular intact. Full, normal range of motion. 06:19 Cardiovascular: Exam negative for acute changes, Rate: normal, Rhythm: regular, Pulses: no pulse deficits are appreciated. 06:19 Respiratory: Exam negative for acute changes, respiratory distress, shortness of breath, wheezing. 06:19 Abdomen/GI: Inspection: abdomen appears normal, obese Palpation: abdomen is soft and non-tender, in all quadrants. 06:19 Neuro: Exam negative for acute changes, Orientation: is normal, Mentation: is normal, Motor: is normal, moves all fours. Vital Signs: 06:13 BP 178 / 88; Pulse 68; Resp 19; Temp 97.3; Pulse Ox 98% on R/A; Weight 105.69 kg; ea Height 5 ft. 7 in. (170.18 cm); 07:00 BP 180 / 90; Pulse 68; Resp 15; Pulse Ox 96% ; bp 08:00 BP 152 / 75; Pulse 66; Resp 17; Pulse Ox 96% ; jl7 09:00 BP 152 / 75; Pulse 69; Resp 17; Pulse Ox 98% ; jl7 10:06 BP 152 / 79; Pulse 70; Resp 19; Pulse Ox 98% ; jl7 06:13 Body Mass Index 36.49 (105.69 kg, 170.18 cm) ea MDM: 06:33 Patient medically screened. pm1 07:40 ED course: Patient is without any symptoms for COVID-19 but requested testing due to pm1 his daughter who lives in the same home tested positive for COVID-19 and he is a dialysis patient. He tested negative last month for COVID-19.. 09:55 Data reviewed: vital signs. Data interpreted: Pulse oximetry: on room air is 96 %. pm1 Interpretation: normal. 09:55 Counseling: I had a detailed discussion with the patient and/or guardian regarding: the pm1 historical points, exam findings, and any diagnostic results supporting the discharge/admit diagnosis, lab results, radiology results. 09:55 Counseling: I had a detailed discussion with the patient and/or guardian regarding: the pm1 need for further work-up and treatment in the hospital, due to complaint of chest pain and history of CAD. 09:55 Refusal of service: The patient/guardian displays adequate decision making capability pm1 and despite a detailed discussion of alternatives, benefits, risks, and consequences refuses: Admission to the hospital for further work-up and treatment, Patient said "hell no" to admission. Patient wants to go home because he feels fine. We also discussed his fluid restrictions that he needs to clarify with nephrology. He is currently drinking between 1-2 liters per day which is likely causing some of his increased volume and abdominal swelling. His dialysis center is aware of the weight gain and has been adjusting the amount they are pulling off per patient. 11/20 06:13 Order name: Basic Metabolic Panel; Complete Time: 07:04 ea 11/20 06:13 Order name: CBC with Diff; Complete Time: 06:51 ea 26 06:13 Order name: LFT's; Complete Time: 07:04 11/20 06:13 Order name: Magnesium; Complete Time: 07:04 11/20 06:13 Order name: NT PRO-BNP; Complete Time: 07:04 11/20 06:13 Order name: PT-INR; Complete Time: 06:51 11/20 06:13 Order name: Troponin (emerg Dept Use Only); Complete Time: 07:04 11/20 06:13 Order name: XRAY Chest (1 view); Complete Time: 10:45 11/20 06:13 Order name: EKG; Complete Time: 06:13 11/20 06:13 Order name: Cardiac monitoring; Complete Time: 06:25 11/20 07:43 Order name: COVID-19 pm1 11/20 06:13 Order name: EKG - Nurse/Tech; Complete Time: 06:25 11/20 06:13 Order name: IV Saline Lock; Complete Time: 06:25 11/20 06:13 Order name: Labs collected and sent; Complete Time: 06:11/20 06:13 Order name: O2 Per Protocol; Complete Time: 06:11/20 06:13 Order name: O2 Sat Monitoring; Complete Time: 06:26 ea Administered Medications: 06:53 Drug: Zofran (Ondansetron) 4 mg Route: IVP; Site: right wrist; mg2 07:10 Follow up: Response: No adverse reaction; Nausea is decreased jl7 06:58 Not Given (Physician Discretion): morphine 4 mg IVP once; RASS on ADMIN: Combtv4, Very pm1 Agttd3, Agttd2, Rstlss1, AlertClm0, Drwsy-1, Lt Sdtn-2, Mod Sdtn-3, Dp Sdtn-4, UnArsble-5 07:10 Drug: fentaNYL (PF) 50 mcg Route: IVP; Site: right wrist; mg2 08:00 Follow up: Response: No adverse reaction; Pain is decreased jl7 Disposition: 11/21 06:06 Co-signature as Attending Physician, Milton Mims MD I agree with the assessment and tw4 plan of care. Disposition: 11/21/19 10:03 Discharged to Home. Impression: Generalized intra-abdominal and pelvic swelling, mass and lump, Volume overload, Chest pain, unspecified, Chronic kidney disease (CKD) - dialysis patient. - Condition is Stable. - Discharge Instructions: COVID-19. - Medication Reconciliation Form, Thank You Letter, Antibiotic Education, Prescription Opioid Use form. - Follow up: Emergency Department; When: As needed; Reason: Worsening of condition. Follow up: Private Physician; When: 2 - 3 days; Reason: Recheck today's complaints, Continuance of care, Re-evaluation by your physician. - Problem is new. - Symptoms have improved. Signatures: Dispatcher [employer] EDMS Shellie Escobedo RN RN lp1 Ross Wilson, ELECTRIC MOTOR TESTER ASSEMBLER ELECTRIC MOTOR TESTER ASSEMBLER pm1 Stephen Victor RN RN jl7 Suad Melendez RN Milton Tavarez ea, MD MD tw4 Darrin Gerber RN RN mg2 Corrections: (The following items were deleted from the chart) 11/20 10:27 10:03 11/21/2019 10:03 Discharged to Home. Impression: Generalized intra-abdominal and jl7 pelvic swelling, mass and lumpVolume overload; Chest pain, unspecified; Chronic kidney disease (CKD) - dialysis patient. Condition is Stable. Forms are Medication Reconciliation Form, Thank You Letter, Antibiotic Education, Prescription Opioid Use. Follow up: Emergency Department; When: As needed; Reason: Worsening of condition. Follow up: Private Physician; When: 2 - 3 days; Reason: Recheck today's complaints, Continuance of care, Re-evaluation by your physician. Problem is new. Symptoms have improved. pm1
--- NOTE | 2019-11-21 10:36 | RAD REPORT ---
EXAM DESCRIPTION: Noah Single View11/21/2019 8:37 am CLINICAL HISTORY: Chest pain/swelling COMPARISON: September 2024 FINDINGS: The lungs appear clear of acute infiltrate. The heart is normal size. A central venous li ne has its tip in superior vena cava IMPRESSION: No acute abnormalities displayed
[2019-11-21 10:38] VITALS: TEMP 97.3
[2019-11-21 10:42] VITALS: O2SAT 98
[2019-11-21 10:44] VITALS: BP 152/79
--- NOTE | 2019-11-22 05:58 | EKG ---
Test Date: 2019-11-21 Test Time: 06:30:51 Capacitor Pack Press Operator: MEASUREMENT RESULTS: Intervals: Rate: 68 VA: 144 QRSD: 134 QT: 468 QTc: 497 [place]: P: 25 VA: 144 QRS: 107 T: 2 INTERPRETIVE STATEMENTS: Normal sinus rhythm Right bundle branch block T wave abnormality, consider inferior ischemia Abnormal ECG Compared to ECG 10/14/2019 19:09:46 T-wave abnormality now present Possible ischemia now present Electronically Signed On 11-22-19 05:57:06 CDT by Zion Colon
== END 2019-11-21 10:27 | disposition home or self-care (01) ==
LOC: ER 05:55
DX: E87.70 Fluid overload, unspecified (principal); R07.9 Chest pain, unspecified; E11.22 Type 2 diabetes mellitus with diabetic chronic kidney disease; I12.0 Hypertensive chronic kidney disease with stage 5 chronic kidney disease or end stage renal disease; N18.6 End stage renal disease; Z99.2 Dependence on renal dialysis; Z79.4 Long term (current) use of insulin; Z88.5 Allergy status to narcotic agent
CPT/HCPCS: 93005; 85025; 80048; 36415; 83735; 85610; 80076; 84484; 83880; 71045; 96375; 96374; 99284; J3010; J2405; U0001

== ENCOUNTER 2019-11-27 07:39 | Emergency (ER) | payer OTHER ==
--- OUTSIDE RECORDS SUMMARY | 2019-11-27 07:49 | XMS REPORT | Clinical Summary ---
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 POC GLUCOSE Routine 07/03/2019 4:16 Results for this PM [employer] procedure are i n the results section. POC GLUCOSE Routine 07/03/2019 12:31 Results for this PM [employer] procedure are i n the results section. POC GLUCOSE Routine 07/03/2019 11:50 Results for this AM SN[employer] procedure are i n the results section. POC GLUCOSE Routine 07/03/2019 7:48 Results for this AM [employer] procedure are i n the results section. ESTIMATED GFR Routine 07/03/2019 4:00 Results fo r this AM [employer] procedure are i n the results section. VANCOMYCIN LEVEL, RANDOM Routine 07/03/2019 4:00 Results for this AM [employer] procedure are i n the results section. PHOSPHORUS LEVEL Routine 07/03/2019 4:00 Results for this AM [employer] procedure are i n the results section. MAGNESIUM LEVEL Routine 07/03/2019 4:00 Results for this AM [employer] procedure are i n the results section. BASIC METABOLIC PANEL Routine 07/03/2019 4:00 Re sults for this AM [employer] procedure are i n the results section. POC GLUCOSE Routine 07/02/2019 9:29 Results for this PM [employer] procedure are i n the results section. POC GLUCOSE Routine 07/02/2019 6:48 Results for this PM [employer] procedure are i n the results section. ESTIMATED GFR Routine 07/02/2019 4:05 Results fo r this PM [employer] procedure are i n the results section. BASIC METABOLIC PANEL Routine 07/02/2019 4:05 Re sults for this PM [employer] procedure are i n the results section. POC GLUCOSE Routine 07/02/2019 4:03 Results for this PM [employer] procedure are i n the results section. VENIPUNC NEED PHYS Routine 07/02/2019 2:59 Resul ts for this SKILL,DX OR RX PM [employer] procedure are in the results section. POC GLUCOSE Routine 07/02/2019 11:52 Results for this AM [employer] procedure are i n the results section. POC GLUCOSE Routine 07/02/2019 8:44 Results for this AM [employer] procedure are i n the results section. ESTIMATED GFR Routine 07/02/2019 4:00 Results fo r this AM [employer] procedure are i n the results section. PHOSPHORUS LEVEL Routine 07/02/2019 4:00 Results for this AM [employer] procedure are i n the results section. MAGNESIUM LEVEL Routine 07/02/2019 4:00 Results for this AM [employer] procedure are i n the results section. BASIC METABOLIC PANEL Routine 07/02/2019 4:00 Re sults for this AM [employer] procedure are i n the results section. VANCOMYCIN LEVEL, RANDOM Routine 07/02/2019 4:00 Results for this AM [employer] procedure are i n the results section. POC GLUCOSE Routine 07/01/2019 9:39 Results for this PM [employer] procedure are i n the results section. POC GLUCOSE Routine 07/01/2019 5:04 Results for this PM [employer] procedure are i n the results section. VANCOMYCIN LEVEL, TROUGH Timed 07/01/2019 2:30 Results for this PM [employer] procedure are i n the results section. POC GLUCOSE Routine 07/01/2019 12:20 Results for this PM [employer] procedure are i n the results section. POC GLUCOSE Routine 07/01/2019 8:33 Results for this AM [employer] procedure are i n the results section. POC GLUCOSE Routine 07/01/2019 4:13 Results for this AM [employer] procedure are i n the results section. ESTIMATED GFR Routine 07/01/2019 4:00 Results fo r this AM [employer] procedure are i n the results section. HEPATIC FUNCTION PANEL Routine 07/01/2019 4:00 R esults for this AM [employer] procedure are i n the results section. PHOSPHORUS LEVEL Routine 07/01/2019 4:00 Results for this AM [employer] procedure are i n the results section. MAGNESIUM LEVEL Routine 07/01/2019 4:00 Results for this AM [employer] procedure are i n the results section. BASIC METABOLIC PANEL Routine 07/01/2019 4:00 Re sults for this AM [employer] procedure are i n the results section. POC GLUCOSE Routine 06/30/2019 11:36 Results for this PM [employer] procedure are i n the results section. POC GLUCOSE Routine 06/30/2019 9:09 Results for this PM [employer] procedure are i n the results section. POC GLUCOSE Routine 06/30/2019 5:15 Results for this PM [employer] procedure are i n the results section. POC GLUCOSE Routine 06/30/2019 2:40 Results for this PM [employer] procedure are i n the results section. POC GLUCOSE Routine 06/30/2019 11:58 Results for this AM [employer] procedure are i n the results section. SURGICAL PATHOLOGY Routine 06/30/2019 11:36 Resul ts for this REQUEST AM [employer] procedure are i n the results section. POC GLUCOSE Routine 06/30/2019 10:00 Results for this AM [employer] procedure are i n the results section. IR TRANSJUGULAR LIVER Routine 06/30/2019 9:39 Re sults for this BIOPSY AM [employer] procedure are i n the results section. ESTIMATED GFR Routine 06/30/2019 4:03 Results fo r this AM [employer] procedure are i n the results section. VANCOMYCIN LEVEL, RANDOM Routine 06/30/2019 4:03 Results for this AM [employer] procedure are i n the results section. HEPATIC FUNCTION PANEL Routine 06/30/2019 4:03 R esults for this AM [employer] procedure are i n the results section. PHOSPHORUS LEVEL Routine 06/30/2019 4:03 Results for this AM SN[employer] procedure are i n the results section. MAGNESIUM LEVEL Routine 06/30/2019 4:03 Results for this AM SN[employer] procedure are i n the results section. BASIC METABOLIC PANEL Routine 06/30/2019 4:03 Re sults for this AM SN[employer] procedure are i n the results section. 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 POC GLUCOSE Routine 06/29/2019 4:06 Results for this PM [employer] procedure are i n the results section. POC GLUCOSE Routine 06/29/2019 12:30 Results for this PM [employer]ER procedure are i n the results section. POC GLUCOSE Routine 06/29/2019 8:25 Results for this AM [employer] procedure are i n the results section. ESTIMATED GFR Routine 06/29/2019 4:54 Results fo r this AM [employer] procedure are i n the results section. HEPATIC FUNCTION PANEL Routine 06/29/2019 4:54 R esults for this AM [employer] procedure are i n the results section. VANCOMYCIN LEVEL, RANDOM Routine 06/29/2019 4:54 Results for this AM [employer] procedure are i n the results section. HC COMPLETE BLD COUNT Routine 06/29/2019 4:54 Re sults for this W/AUTO DIFF AM SNU[employer]RIER procedure are i n the results section. PHOSPHORUS LEVEL Routine 06/29/2019 4:54 Results for this AM [employer] procedure are i n the results section. MAGNESIUM LEVEL Routine 06/29/2019 4:54 Results for this AM [employer] procedure are i n the results section. BASIC METABOLIC PANEL Routine 06/29/2019 4:54 Re sults for this AM [employer] procedure are i n the results section. POC GLUCOSE Routine 06/28/2019 8:33 Results for this PM [employer]RIER procedure are i n the results section. POC GLUCOSE Routine 06/28/2019 4:06 Results for this PM [employer]ER procedure are i n the results section. POC GLUCOSE Routine 06/28/2019 12:29 Results for this PM [employer]ER procedure are i n the results section. HEPATIC FUNCTION PANEL Routine 06/28/2019 12:23 R esults for this PM SNU[employer]RIER procedure are i n the results section. ECG 12-LEAD STAT 06/28/2019 9:41 Results for this AM [employer] procedure are i n the results section. POC GLUCOSE Routine 06/28/2019 9:14 Results for this AM [employer] procedure are i n the results section. HEPATIC FUNCTION PANEL Timed 06/28/2019 9:13 R esults for this AM [employer] procedure are i n the results section. TROPONIN Timed 06/28/2019 9:13 Results for this AM [employer] procedure are i n the results section. ESTIMATED GFR Routine 06/28/2019 5:22 Results fo r this AM [employer] procedure are i n the results section. VANCOMYCIN LEVEL, RANDOM Routine 06/28/2019 5:22 Results for this AM SN[employer] procedure are i n the results section. PHOSPHORUS LEVEL Routine 06/28/2019 5:22 Results for this AM SN[employer]ER procedure are i n the results section. MAGNESIUM LEVEL Routine 06/28/2019 5:22 Results for this AM [employer] procedure are i n the results section. BASIC METABOLIC PANEL Routine 06/28/2019 5:22 Re sults for this AM [employer] procedure are i n the results section. 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 POC GLUCOSE Routine 06/27/2019 5:04 Results for this PM [employer]RIER procedure are i n the results section. POC GLUCOSE Routine 06/27/2019 2:07 Results for this PM [employer]RIER procedure are i n the results section. POC GLUCOSE Routine 06/27/2019 11:57 Results for this AM [employer] procedure are i n the results section. POC GLUCOSE Routine 06/27/2019 8:26 Results for this AM [employer] procedure are i n the results section. ECG 12-LEAD Routine 06/27/2019 8:13 Results for this AM [employer] procedure are i n the results section. ESTIMATED GFR Routine 06/27/2019 5:14 Results fo r this AM [employer] procedure are i n the results section. VANCOMYCIN LEVEL, RANDOM Routine 06/27/2019 5:14 Results for this AM [employer] procedure are i n the results section. PHOSPHORUS LEVEL Routine 06/27/2019 5:14 Results for this AM [employer] procedure are i n the results section. MAGNESIUM LEVEL Routine 06/27/2019 5:14 Results for this AM [employer] procedure are i n the results section. BASIC METABOLIC PANEL Routine 06/27/2019 5:14 Re sults for this AM [employer] procedure are i n the results section. POC GLUCOSE Routine 06/26/2019 9:21 Results for this PM [employer]RI[employer] procedure are i n the results section. POC GLUCOSE Routine 06/26/2019 7:41 Results for this PM [employer] procedure are i n the results section. POC GLUCOSE Routine 06/26/2019 7:12 Results for this PM [employer] procedure are i n the results section. ULTRAFILTRATION Routine 06/26/2019 1:39 PM SNUFF [employer]RIER POC GLUCOSE Routine 06/26/2019 12:05 Results for this PM [employer] procedure are i n the results section. POC GLUCOSE Routine 06/26/2019 8:54 Results for this AM [employer] procedure are i n the results section. ESTIMATED GFR Routine 06/26/2019 6:25 Results fo r this AM [employer] procedure are i n the results section. VANCOMYCIN LEVEL, RANDOM Routine 06/26/2019 6:25 Results for this AM [employer] procedure are i n the results section. HC COMPLETE BLD COUNT Routine 06/26/2019 6:25 Re sults for this W/AUTO DIFF AM [employer] procedure are i n the results section. PHOSPHORUS LEVEL Routine 06/26/2019 6:25 Results for this AM [employer] procedure are i n the results section. MAGNESIUM LEVEL Routine 06/26/2019 6:25 Results for this AM [employer] procedure are i n the results section. BASIC METABOLIC PANEL Routine 06/26/2019 6:25 Re sults for this AM [employer] procedure are i n the results section. POC GLUCOSE Routine 06/25/2019 11:39 Results for this PM [employer] procedure are i n the results section. HEMODIALYSIS Routine 06/25/2019 9:44 PM SNU[employer]ER POC GLUCOSE Routine 06/25/2019 9:14 Results for this PM [employer] procedure are i n the results section. ESTIMATED GFR Routine 06/25/2019 6:45 Results fo r this PM [employer] procedure are i n the results section. PHOSPHORUS LEVEL Routine 06/25/2019 6:45 Results for this PM [employer] procedure are i n the results section. BASIC METABOLIC PANEL Routine 06/25/2019 6:45 Re sults for this PM [employer] procedure are i n the results section. POC GLUCOSE Routine 06/25/2019 3:45 Results for this PM [employer] procedure are i n the results section. POC GLUCOSE Routine 06/25/2019 11:30 Results for this AM [employer] procedure are i n the results section. POC GLUCOSE Routine 06/25/2019 7:47 Results for this AM [employer] procedure are i n the results section. POC GLUCOSE Routine 06/25/2019 12:05 Results for this AM [employer] procedure are i n the results section. POC GLUCOSE Routine 06/24/2019 9:12 Results for this PM [employer] procedure are i n the results section. POC GLUCOSE Routine 06/24/2019 4:22 Results for this PM [employer] procedure are i n the results section. POC GLUCOSE Routine 06/24/2019 1:17 Results for this PM [employer] procedure are i n the results section. HEMODIALYSIS Routine 06/24/2019 11:11 AM SNU[employer]ER POC GLUCOSE Routine 06/24/2019 7:35 Results for this AM [employer] procedure are i n the results section. ESTIMATED GFR Routine 06/24/2019 4:00 Results fo r this AM [employer] procedure are i n the results section. HC COMPLETE BLD COUNT Routine 06/24/2019 4:00 Re sults for this W/AUTO DIFF AM [employer] procedure are i n the results section. HEPATIC FUNCTION PANEL Routine 06/24/2019 4:00 R esults for this AM [employer] procedure are i n the results section. PHOSPHORUS LEVEL Routine 06/24/2019 4:00 Results for this AM [employer] procedure are i n the results section. MAGNESIUM LEVEL Routine 06/24/2019 4:00 Results for this AM [employer] procedure are i n the results section. BASIC METABOLIC PANEL Routine 06/24/2019 4:00 Re sults for this AM [employer] procedure are i n the results section. POC GLUCOSE Routine 06/23/2019 6:00 Results for this PM [employer] procedure are i n the results section. HEMODIALYSIS Routine 06/23/2019 12:21 PM SNU[employer]ER POC GLUCOSE Routine 06/23/2019 11:18 Results for this AM [employer] procedure are i n the results section. IR TUNNELED DIALYSIS Routine 06/23/2019 10:03 Res ults for this CATHETER PLACEMENT AM [employer] procedure are in the results section. POC GLUCOSE Routine 06/23/2019 9:54 Results for this AM [employer] procedure are i n the results section. POC GLUCOSE Routine 06/23/2019 8:19 Results for this AM [employer] procedure are i n the results section. ESTIMATED GFR Routine 06/23/2019 5:30 Results fo r this AM [employer] procedure are i n the results section. HC COMPLETE BLD COUNT Routine 06/23/2019 5:30 Re sults for this W/AUTO DIFF AM [employer] procedure are i n the results section. HEPATIC FUNCTION PANEL Routine 06/23/2019 5:30 R esults for this AM [employer] procedure are i n the results section. PHOSPHORUS LEVEL Routine 06/23/2019 5:30 Results for this AM [employer] procedure are i n the results section. MAGNESIUM LEVEL Routine 06/23/2019 5:30 Results for this AM [employer] procedure are i n the results section. BASIC METABOLIC PANEL Routine 06/23/2019 5:30 Re sults for this AM [employer] procedure are i n the results section. POC GLUCOSE Routine 06/22/2019 9:30 Results for this PM [employer] procedure are i n the results section. POC GLUCOSE Routine 06/22/2019 12:28 Results for this PM [employer] procedure are i n the results section. POC GLUCOSE Routine 06/22/2019 8:38 Results for this AM [employer] procedure are i n the results section. ESTIMATED GFR Routine 06/22/2019 4:30 Results fo r this AM [employer] procedure are i n the results section. HEPATIC FUNCTION PANEL Routine 06/22/2019 4:30 R esults for this AM [employer] procedure are i n the results section. HC COMPLETE BLD COUNT Routine 06/22/2019 4:30 Re sults for this W/AUTO DIFF AM [employer] procedure are i n the results section. PHOSPHORUS LEVEL Routine 06/22/2019 4:30 Results for this AM [employer] procedure are i n the results section. MAGNESIUM LEVEL Routine 06/22/2019 4:30 Results for this AM [employer] procedure are i n the results section. BASIC METABOLIC PANEL Routine 06/22/2019 4:30 Re sults for this AM [employer] procedure are i n the results section. POC GLUCOSE Routine 06/22/2019 12:07 Results for this AM [employer] procedure are i n the results section. POC GLUCOSE Routine 06/21/2019 9:03 Results for this PM [employer] procedure are i n the results section. POC GLUCOSE Routine 06/21/2019 7:26 Results for this PM [employer] procedure are i n the results section. POC GLUCOSE Routine 06/21/2019 4:33 Results for this PM [employer] procedure are i n the results section. XR ABDOMEN 1 VW PORTABLE Routine 06/21/2019 4:08 Results for this PM [employer] procedure are i n the results section. POC GLUCOSE Routine 06/21/2019 11:46 Results for this AM [employer] procedure are i n the results section. POC GLUCOSE Routine 06/21/2019 8:15 Results for this AM [employer] procedure are i n the results section. ESTIMATED GFR Routine 06/21/2019 4:00 Results fo r this AM [employer] procedure are i n the results section. PHOSPHORUS LEVEL Routine 06/21/2019 4:00 Results for this AM [employer] procedure are i n the results section. MAGNESIUM LEVEL Routine 06/21/2019 4:00 Results for this AM [employer] procedure are i n the results section. BASIC METABOLIC PANEL Routine 06/21/2019 4:00 Re sults for this AM [employer] procedure are i n the results section. POC GLUCOSE Routine 06/20/2019 9:33 Results for this PM [employer] procedure are i n the results section. GRAM STAIN Routine 06/20/2019 5:32 Results for this PM [employer] procedure are i n the results section. AEROBIC CULTURE Routine 06/20/2019 5:32 Results for this PM [employer] procedure are i n the results section. POC GLUCOSE Routine 06/20/2019 3:51 Results for this PM [employer] procedure are i n the results section. POC GLUCOSE Routine 06/20/2019 12:25 Results for this PM [employer] procedure are i n the results section. POC GLUCOSE Routine 06/20/2019 7:34 Results for this AM [employer] procedure are i n the results section. ESTIMATED GFR Routine 06/20/2019 4:00 Results fo r this AM [employer] procedure are i n the results section. PHOSPHORUS LEVEL Routine 06/20/2019 4:00 Results for this AM [employer] procedure are i n the results section. MAGNESIUM LEVEL Routine 06/20/2019 4:00 Results for this AM [employer] procedure are i n the results section. BASIC METABOLIC PANEL Routine 06/20/2019 4:00 Re sults for this AM [employer] procedure are i n the results section. HEPATIC FUNCTION PANEL Routine 06/20/2019 4:00 R esults for this AM [employer] procedure are i n the results section. POC GLUCOSE Routine 06/19/2019 9:31 Results for this PM [employer] procedure are i n the results section. PROTEIN, URINE, RANDOM Routine 06/19/2019 7:06 R esults for this PM [employer] procedure are i n the results section. CREATININE LEVEL, URINE, Routine 06/19/2019 7:06 Results for this RANDOM PM [employer] procedure are i n the results section. POC GLUCOSE Routine 06/19/2019 4:08 Results for this PM [employer] procedure are i n the results section. POC GLUCOSE Routine 06/19/2019 12:34 Results for this PM [employer] procedure are i n the results section. POC GLUCOSE Routine 06/19/2019 7:42 Results for this AM [employer] procedure are i n the results section. ESTIMATED GFR Routine 06/19/2019 12:00 Results fo r this AM [employer] procedure are i n the results section. PHOSPHORUS LEVEL Routine 06/19/2019 12:00 Results for this AM [employer] procedure are i n the results section. MAGNESIUM LEVEL Routine 06/19/2019 12:00 Results for this AM [employer] [facility] procedure are i n the results section. BASIC METABOLIC PANEL Routine 06/19/2019 12:00 Re sults for this AM [employer] procedure are i n the results section. HEPATIC FUNCTION PANEL Routine 06/19/2019 12:00 R esults for this AM [employer] [facility] procedure are i n the results section. ANTI MITOCHONDRIA SCREEN Routine 06/19/2019 12:00 Results for this AM [facility] [facility] procedure are i n the results section. ANTI SMOOTH MUSCLE AB Routine 06/19/2019 12:00 Re sults for this SCREEN [facility] [employer] [facility] procedure are i n the results section. POC GLUCOSE Routine 06/18/2019 9:10 Results for this PM [employer] procedure are i n the results section. POC GLUCOSE Routine 06/18/2019 4:07 Results for this PM [employer] procedure are i n the results section. POC GLUCOSE Routine 06/18/2019 11:14 Results for this AM [employer] procedure are i n the results section. POC GLUCOSE Routine 06/18/2019 7:29 Results for this AM [employer] [facility] procedure are i n the results section. URINE CULTURE Routine 06/18/2019 7:24 Results fo r this AM [employer] [facility] procedure are i n the results section. URINALYSIS SCREEN AND Routine 06/18/2019 5:30 Re sults for this MICROSCOPY, WITH REFLEX AM [facility] [facility] proc edure are in TO CULTURE the results section. AMMONIA LEVEL Routine 06/18/2019 5:00 Results fo r this AM [employer] [facility] procedure are i n the results section. HEPATITIS B SURFACE AB, Routine 06/18/2019 5:00 Results for this QUANTITATIVE AM [facility] [facility] procedure are i n the results section. HC COMPLETE BLD COUNT Routine 06/18/2019 5:00 Re sults for this W/AUTO DIFF [employer] [facility] procedure are i n the results section. PROTHROMBIN TIME WITH Routine 06/18/2019 5:00 Re sults for this INR [facility] [facility] procedure are i n the results section. ESTIMATED GFR Routine 06/18/2019 4:00 Results fo r this [facility] [employer] [facility] procedure are i n the results section. GGT Routine 06/18/2019 4:00 Results for this AM [employer] [facility] procedure are i n the results section. ANNE Routine 06/18/2019 4:00 Results for this AM [employer] [facility] procedure are i n the results section. ALPHA-1 ANTITRYPSIN Routine 06/18/2019 4:00 Resu lts for this LEVEL AM [employer] [facility] procedure are i n the results section. ALPHA FETOPROTEIN Routine 06/18/2019 4:00 Result s for this AM [facility] [facility] procedure are i n the results section. CERULOPLASMIN LEVEL Routine 06/18/2019 4:00 Resu lts for this AM [employer] [facility] procedure are i n the results section. HEPATITIS C ANTIBODY Routine 06/18/2019 4:00 Res ults for this AM [employer] [facility] procedure are i n the results section. HEPATITIS B SURFACE Routine 06/18/2019 4:00 Resu lts for this ANTIGEN [facility] [facility] procedure are i n the results section. HEPATITIS B SURFACE Routine 06/18/2019 4:00 Resu lts for this ANTIBODY [facility] [employer] [facility] procedure are i n the results section. HEPATITIS B CORE Routine 06/18/2019 4:00 Results for this ANTIBODY TOTAL [facility] [employer] [facility] procedure are in the results section. HEPATITIS B CORE Routine 06/18/2019 4:00 Results for this ANTIBODY IGM AM [employer] [facility] procedure are i n the results section. HEPATITIS A ANTIBODY IGM Routine 06/18/2019 4:00 Results for this AM [employer] [facility] procedure are i n the results section. PHOSPHORUS LEVEL Routine 06/18/2019 4:00 Results for this AM [employer] [facility] procedure are i n the results section. MAGNESIUM LEVEL Routine 06/18/2019 4:00 Results for this AM [employer] [facility] procedure are i n the results section. BASIC METABOLIC PANEL Routine 06/18/2019 4:00 Re sults for this AM [employer] [facility] procedure are i n the results section. HEPATIC FUNCTION PANEL Routine 06/18/2019 4:00 R esults for this [facility] [employer] [facility] procedure are i n the results section. POC GLUCOSE Routine 06/17/2019 9:17 Results for this PM [employer] [facility] procedure are i n the results section. POC GLUCOSE Routine 06/17/2019 5:07 Results for this PM [employer] [facility] procedure are i n the results section. US ABDOMEN COMPLETE Routine 06/17/2019 4:48 Resu lts for this PM [employer] [facility] procedure are i n the results section. US ABDOMINAL DOPPLER Routine 06/17/2019 4:48 Res ults for this PM [employer] [facility] procedure are i n the results section. US RENAL Routine 06/17/2019 2:26 Results for this PM [employer] [facility] procedure are i n the results section. POC GLUCOSE Routine 06/17/2019 11:38 Results for this [facility] [employer] [facility] procedure are i n the results section. POC GLUCOSE Routine 06/17/2019 8:22 Results for this AM [employer] [facility] procedure are i n the results section. TISSUE TRANSGLUTAMINASE Routine 06/17/2019 4:53 Results for this AB, IGA AM SNUFF DRIER procedure are i n the results section. ESTIMATED GFR Routine 06/17/2019 4:53 Results fo r this AM SNUFF DRIER procedure are i n the results section. PHOSPHORUS LEVEL Routine 06/17/2019 4:53 Results for this AM SNUFF DRIER procedure are i n the results section. MAGNESIUM LEVEL Routine 06/17/2019 4:53 Results for this AM SNUFF DRIER procedure are i n the results section. BASIC METABOLIC PANEL Routine 06/17/2019 4:53 Re sults for this AM SNUFF DRIER procedure are i n the results section. CELIAC DISEASE REFLEXIVE Routine 06/17/2019 4:53 Results for this CASCADE AM SNUFF DRIER procedure are i n the results section. POC GLUCOSE Routine 06/17/2019 12:44 Results for this AM SNUFF DRIER procedure are i n the results section. POC GLUCOSE Routine 06/16/2019 9:02 Results for this PM SNUFF DRIER procedure are i n the results section. POC GLUCOSE Routine 06/16/2019 4:27 Results for this PM SNUFF DRIER procedure are i n the results section. POC GLUCOSE Routine 06/16/2019 12:07 Results for this PM SNUFF DRIER procedure are i n the results section. ECG 12-LEAD Routine 06/16/2019 11:18 Results for this AM SNUFF DRIER procedure are i n the results section. POC GLUCOSE Routine 06/16/2019 7:25 Results for this AM SNUFF DRIER procedure are i n the results section. ESTIMATED GFR Routine 06/16/2019 4:00 Results fo r this AM SNUFF DRIER procedure are i n the results section. PHOSPHORUS LEVEL Routine 06/16/2019 4:00 Results for this AM SNUFF DRIER procedure are i n the results section. MAGNESIUM LEVEL Routine 06/16/2019 4:00 Results for this AM SNUFF DRIER procedure are i n the results section. BASIC METABOLIC PANEL Routine 06/16/2019 4:00 Re sults for this AM SNUFF DRIER procedure are i n the results section. POC GLUCOSE Routine 06/15/2019 8:49 Results for this PM SNUFF DRIER procedure are i n the results section. POC GLUCOSE Routine 06/15/2019 4:31 Results for this PM SNUFF DRIER procedure are i n the results section. FECAL CALPROTECTIN Routine 06/15/2019 4:30 Resul ts for this PM SNUFF DRIER procedure are i n the results section. SPIROMETRY, DIFFUSION, Routine 06/15/2019 2:29 Tachycardia R esults for this LUNG VOLUMES PM SNUFF DRIER procedure are i n the results section. POC GLUCOSE Routine 06/15/2019 12:27 Results for this PM SNUFF DRIER procedure are i n the results section. US CAROTID DUPLEX Routine 06/15/2019 11:31 Result s for this BILATERAL AM SNUFF DRIER procedure are i n the results section. POC GLUCOSE Routine 06/15/2019 7:24 Results for this AM SNUFF DRIER procedure are i n the results section. ESTIMATED GFR Routine 06/15/2019 3:38 Results fo r this AM SNUFF DRIER procedure are i n the results section. PHOSPHORUS LEVEL Routine 06/15/2019 3:38 Results for this AM SNUFF DRIER procedure are i n the results section. MAGNESIUM LEVEL Routine 06/15/2019 3:38 Results for this AM SNUFF DRIER procedure are i n the results section. BASIC METABOLIC PANEL Routine 06/15/2019 3:38 Re sults for this AM SNUFF DRIER procedure are i n the results section. HC COMPLETE BLD COUNT Routine 06/15/2019 3:38 Re sults for this W/AUTO DIFF AM SNUFF DRIER procedure are i n the results section. POC GLUCOSE Routine 06/14/2019 9:02 Results for this PM SNUFF DRIER procedure are i n the results section. CT HEAD WO CONTRAST STAT 06/14/2019 8:31 Resu lts for this PM SNUFF DRIER procedure are i n the results section. POC GLUCOSE Routine 06/14/2019 4:31 Results for this PM SNUFF DRIER procedure are i n the results section. POC GLUCOSE Routine 06/14/2019 3:36 Results for this PM SNUFF DRIER procedure are i n the results section. POC GLUCOSE Routine 06/14/2019 12:06 Results for this PM SNUFF DRIER procedure are i n the results section. POC GLUCOSE Routine 06/14/2019 8:38 Results for this AM SNUFF DRIER procedure are i n the results section. GASTROINTESTINAL PANEL Routine 06/14/2019 5:48 R esults for this AM SNUFF DRIER procedure are i n the results section. T4, FREE Routine 06/14/2019 5:14 Results for this AM SNUFF DRIER procedure are i n the results section. THYROID STIMULATING Routine 06/14/2019 5:14 Resu lts for this HORMONE AM SNUFF DRIER procedure are i n the results section. LIPID PANEL Routine 06/14/2019 5:14 Results for this AM SNUFF DRIER procedure are i n the results section. HEMOGLOBIN A1C Routine 06/14/2019 5:14 Results f or this AM SNUFF DRIER procedure are i n the results section. MANUAL DIFFERENTIAL Routine 06/14/2019 4:59 Resu lts for this AM SNUFF DRIER procedure are i n the results section. ESTIMATED GFR Routine 06/14/2019 4:59 Results fo r this AM SNUFF DRIER procedure are i n the results section. BASIC METABOLIC PANEL Routine 06/14/2019 4:59 Re sults for this AM SNUFF DRIER procedure are i n the results section. CBC WITH PLATELET AND Routine 06/14/2019 4:59 Re sults for this DIFFERENTIAL AM SNUFF DRIER procedure are i n the results section. POC GLUCOSE Routine 06/13/2019 9:19 Results for this PM SNUFF DRIER procedure are i n the results section. POC GLUCOSE Routine 06/13/2019 4:35 Results for this PM SNUFF DRIER procedure are i n the results section. POC GLUCOSE Routine 06/13/2019 11:50 Results for this AM SNUFF DRIER procedure are i n the results section. POC GLUCOSE Routine 06/13/2019 8:04 Results for this AM SNUFF DRIER procedure are i n the results section. POC GLUCOSE Routine 06/13/2019 8:02 Results for this AM SNUFF DRIER procedure are i n the results section. HC COMPLETE BLD COUNT Routine 06/13/2019 5:30 Re sults for this W/AUTO DIFF AM SNUFF DRIER procedure are i n the results section. ESTIMATED GFR Routine 06/13/2019 4:00 Results fo r this AM SNUFF DRIER procedure are i n the results section. BASIC METABOLIC PANEL Routine 06/13/2019 4:00 Re sults for this AM SNUFF DRIER procedure are i n the results section. TROPONIN Timed 06/13/2019 1:36 Results for this AM SNUFF DRIER procedure are i n the results section. TROPONIN Timed 06/12/2019 10:55 Results for this PM SNUFF DRIER procedure are i n the results section. GASTROINTESTINAL PANEL Routine 06/12/2019 10:05 R esults for this PM SNUFF DRIER procedure are i n the results section. INFLUENZA ANTIGEN Routine 06/12/2019 9:15 Result s for this PM SNUFF DRIER procedure are i n the results section. XR CHEST 1 VW PORTABLE STAT 06/12/2019 8:55 R esults for this PM SNUFF DRIER procedure are i n the results section. ECG ED PRELIMINARY Routine 06/12/2019 7:50 Resul ts for this INTERPRETATION PM SNUFF DRIER procedure are in the results section. URINALYSIS SCREEN AND STAT 06/12/2019 7:49 Re sults for this MICROSCOPY, WITH REFLEX PM SNUFF DRIER proc edure are in TO CULTURE the results section. ESTIMATED GFR STAT 06/12/2019 7:49 Results fo r this PM SNUFF DRIER procedure are i n the results section. PROTHROMBIN TIME WITH STAT 06/12/2019 7:49 Re sults for this INR PM SNUFF DRIER procedure are i n the results section. PARTIAL THROMBOPLASTIN STAT 06/12/2019 7:49 R esults for this TIME (PTT) PM SNUFF DRIER procedure are i n the results section. B NATRIURETIC PEPTIDE STAT 06/12/2019 7:49 Re sults for this PM SNUFF DRIER procedure are i n the results section. TROPONIN STAT 06/12/2019 7:49 Results for this PM SNUFF DRIER procedure are i n the results section. COMPREHENSIVE METABOLIC STAT 06/12/2019 7:49 Results for this PANEL PM SNUFF DRIER procedure are i n the results section. HC COMPLETE BLD COUNT STAT 06/12/2019 7:49 Re sults for this W/AUTO DIFF PM SNUFF DRIER procedure are i n the results section. URINE CULTURE STAT 06/12/2019 7:49 Results fo r this PM SNUFF DRIER procedure are i n the results section. ECG 12-LEAD STAT 06/12/2019 7:42 Results for this PM SNUFF DRIER procedure are i n the results section. after 11/26/2018 Results POC glucose (07/16/2019 12:29 PM CDT)Only the most recent of156 resultswithin the time period is included. Pathologist Sig nature POC glucose 253 (H) 65 - 99 mg/dL [facility] Comment: HOSPITAL Value Analyst Name: Ney Lao Device ID: [id number] Chartable: [facility] Notified RN Specimen Blood Performing Organization Address City/State/Zipcode Phone Number [facility] DEPARTMENT OF PATHOLOGY AND [address] [place], [place] [address] GENOM[address] [address] Estimated GFR (07/16/2019 4:00 AM CDT)Only the most recent of36 resultswithin the time period is included. Estimated GFR 14 (A) mL/min/1.73 [facility] Comment: m2 HOSPITAL Catergory Units Interpretation G1 [...] published in 2014. Specimen Performing Organization Address City/[facility] Phone Number [facility] DEPARTMENT OF PATHOLOGY AND [address] [place] [phone] Phosphorus level (07/16/2019 4:00 AM CDT)Only the most recent of31 results within the time period is included. Pathologist Sig nature Phosphorus 4.3 2.4 - 4.5 mg/dL [facility] L Specimen Blood Performing Organization Address [facility] Phone Number [facility] DEPARTMENT OF PATHOLOGY AND [address] [place] [address] [phone] [address] Basic metabolic panel (07/16/2019 4:00 AM CDT)Only the most recent of35 results within the time period is included. Pathologist Sig nature Sodium 142 135 - 148 mEq/L [facility] Potassium 4.3 3.5 - 5.0 mEq/L [facility] Chloride 105 98 - 112 mEq/L [facility] CO2 27 24 - 31 mEq/L [facility] Anion gap 10@ANIO 7 - 15 mEq/L [facility] BUN 46 (H) 6 - 20 mg/dL [facility] Creatinine 4.61 (H) 0.70 - 1.20 mg/dL [facility] Glucose 189 (H) 65 - 99 mg/dL [facility] Calcium 8.7 8.3 - 10.2 mg/dL [facility] Specimen Blood Performing Organization Address [facility] Phone Number [facility] DEPARTMENT OF PATHOLOGY AND [address] [place] [phone] [facility] [address] [place] [address] CBC with platelet and differential (07/15/2019 5:30 AM CDT)Only the most recent of15 resultswithin the time period is included. WBC 6.44 4.50 - 11.00 [facility] k/uL HOSPITAL RBC 3.54 (L) 4.40 - 6.00 [facility] m/uL HOSPITAL HGB 10.6 (L) 14.0 - 18.0 [facility] g/dL [facility] HCT 31.2 (L) 41.0 - 51.0 % [facility] MCV 88.1 82.0 - 100.0 [facility] MCH 29.9 27.0 - 34.0 pg [facility] MCHC 34.0 31.0 - 37.0 [facility] - [place] 44.3 37.0 - 55.0 fL [facility] MPV 12.1 8.8 - 13.2 fL [facility] Platelet count 157 150 - 400 k/uL [facility] Nucleated RBC 0.00 /100 WBC [facility] Neutrophils 48.0 39.0 - 69.0 % [facility] Lymphocytes 32.5 25.0 - 45.0 % [facility] Monocytes 7.8 0.0 - 10.0 % [facility] Eosinophils 10.6 (H) 0.0 - 5.0 % [facility] Basophils 0.9 0.0 - 1.0 % [facility] Immature granulocytes 0.2Comment: 0.0 - 1.0 % [facility] "Immature HOSPITAL granulocytes" (promyelocytes , myelocytes, metamyelocytes ) Specimen Blood Performing Organization Address City/State/Zipcode Phone Number [facility] DEPARTMENT OF PATHOLOGY AND [address] [place] [phone] [place] [id number] [place] [address] Magnesium level (07/14/2019 5:10 AM CDT)Only the most recent of29 resultswithin the time period is included. Pathologist Sig nature Magnesium 1.9 1.6 - 2.6 mg/dL [facility] Specimen Blood Performing Organization Address City/[facility]/Zipcode Phone Number [facility] DEPARTMENT OF PATHOLOGY AND [address] [place], [place] [address] GENOMIC MEDICINE [facility] [address] [place] [address] CT Chest Wo Contrast (07/11/2019 9:40 AM [...] ensure appropriate moderation of exposure. Automated dose risk management intern nology is applied to adjust the radiation [...] of multifocal pneumonia. Rec ommend clinical correlation.. [facility]-[id number] Procedure Note Interface, Radiology Results Incoming - [...] improvement of multifocal pneumonia. Recommend clinical correlation.. [facility]-[id number] Performing Organization Address [facility] Phone Number [facility] [address] [place] [address] Total iron binding capacity (07/10/2019 1:40 PM CDT) Pathologist Sig [facility] Iron level 72 59 - 158 ug/dL [facility] Iron binding capacity 298 200 - 400 ug/dL [facility] % Saturation 24.2 20.0 - 40.0 % [facility] Specimen Blood Performing Organization Address [facility] Phone Number [facility] DEPARTMENT OF PATHOLOGY AND [address] [place], [place] [address] GENOM[address] [address] Ferritin level (07/10/2019 1:40 PM CDT) Pathologist Sig [facility] Ferritin level 214 30 - 400 ng/mL [facility] Specimen Blood Performing Organization Address City/State/Zipcode Phone Number [facility] DEPARTMENT OF PATHOLOGY AND [address] [place], [place] [address] GENOMIC MEDICINE [facility] [address] [place] [address] [place] Modified Barium Swallow (07/09/2019 1:51 PM [...] to Speech Pathology report for further details. [facility]-[id number] Dictated and approved by radiology assistant/fellow: Marin Escamilla M.D. I, Adriana Morales MD, personally reviewed the images and resident's/fellow's findings and agree with the final report. Procedure Note [facility], Radiology Results Incoming - 07/09/2019 3:05 PM [...] to Speech Pathology report for further details. [facility]-[id number] Dictated and approved by radiology resid ent/fellow: Eugenia Escamilla M.D. I, Adriana Morales MD, personally review ed the images and resident's/fellow's findings and agree with the final report. Performing Organization Address City/State/Zipcode Phone Number [facility] [address] [place] [address] Hepatic function panel (07/08/2019 4:00 AM CDT)Only the most recent of15 resultswithin the time period is included. Albumin 2.4 (L) 3.5 - 5.0 [facility] g/dL [facility] Total bilirubin <0.2 0.0 - 1.2 [facility] mg/dL [facility] Bilirubin direct <0.2 0.0 - 0.3 [facility] mg/dL HOSPITAL Alkaline phosphatase 133 (H) 40 - 129 U/L [facility] Protein 6.9 6.3 - 8.3 [facility] Comment: g/dL [facility] [place] 4.6-7.0 g/dL 1 week 4.4-7.6 g/dL 7 months-1year 5.1-7.3 g/dL 1-2 years 5.6-7.5 g/dL >3 years 6.0-8.0 g/dL 18-150 6.3-8.3 g/dL ALT 20 5 - 50 U/L [facility] AST 20 10 - 50 U/L [facility] Specimen Plasma specimen Performing Organization Address City/[facility] Phone Number [facility] DEPARTMENT OF PATHOLOGY AND [address] [place] [phone] [address] [address] Hypersensitivity pneumonitis II (07/07/2019 5:30 PM CDT) [...] REF candidus Comment: tin LAB Performed by [facility], [address] [place], [place] [id number] [email or web address], Roberto Almaguer MD, Lab. Director Thermoactinomyces NOT PERFORMED WITH [facility] RE[facility] saccharii THIS PANEL LAB Specimen Serum Performing Organization Address [facility]/Zipcode Phone Number [facility] [address] [place] [address] [facility] [address] [place] [address] Hypersensitivity pneumonitis I (07/07/2019 5:30 PM CDT) Aspergillus fumigatus None Detected None-Detec [facility] REF #1 tin LAB Aspergillus fumigatus None Detected None-Detec [facility] REF #6 tin LAB Aureobasidium pullulans None Detected None-[facility] REF Comment: tin LAB Testing includes antibodies directed at Aureobasidium pullulans, Aspergillus fumigatus #1, Aspergillus fumigatus #6, [place] cropolyspora faeni, [place] Serum and Thermoactinomyces vulgaris #1. [place] serum None Detected None-Detec HM [facility] REF tin LAB Micropolyspora faeni None Detected None-Detec HM [facility] REF tin LAB Thermoactinomyces None Detected None-Detec HM [facility] REF vulgaris #1 Comment: tin LAB Performed by [facility], [address] [place] [id number] [email or web address], Roberto Almaguer MD, Lab. Director Specimen Serum Performing Organization Address City/[facility] Phone Number [facility] [address] [place] [address] [facility] [address] [place] [address] Immunoglobulin G (07/07/2019 4:11 PM CDT) Pathologist [facility] nature IgG 1,005 700 - 1,600 mg/dL [facility] Specimen Plasma specimen Performing Organization Address City/[facility]/Zipcode Phone Number [facility] DEPARTMENT OF PATHOLOGY AND [address] [place] [address] [phone] [address] SS-B antibody (07/07/2019 2:30 PM CDT) Pathologist [facility] Sjogren's SS-B <0.2 0.0 - 0.9 [facility] antibody [facility] SS-B antibody Negative [facility] inter Comment: EPISCOPAL SS-B/La antibody is seen in patients with Sjogre n syndrome, but may also be HOSPITAL positive with systemic lupus erythematosus (SLE), and systemic sclerosis. Specimen Serum Performing Organization Address City/[facility]/Zipcode Phone Number [facility] DEPARTMENT OF PATHOLOGY AND [address] [place] [address] [phone] [address] SS-A antibody (07/07/2019 2:30 PM CDT) Pathologist [facility] Sjogren's SS-A <0.2 0.0 - 0.9 [facility] antibody [facility] SS-A antibody Negative [facility] interp Comment: EPISCOPAL SS-A antibody is sensitive for Sjogren's syndrom e, but may also be positive HOSPITAL with systemic lupus erythematosus (SLE), and systemic sclerosis. Specimen Serum Performing Organization Address City/State/Zipcode Phone Number [facility] DEPARTMENT OF PATHOLOGY AND [address] [place] [phone] Scl-70 antibody (07/07/2019 2:30 PM CDT) Pathologist [facility] Scleroderma SCL-70 <0.2 0.0 - 0.9 [facility] Ab [facility] Scl-70 antibody Negative [facility] interp Comment: EPISCOPAL Anti-Scl-70 (topoisomerase I) antibodies are found in patients with HOSPITAL systemic sclerosis (SSc or scleroderma), and have been reported to be predictive of diffuse cutaneous involvement. Anti-Scl- 70 antibodies may also be present in patients with systemic lupus erythe matosus (SLE). Specimen Serum Performing Organization Address City/State/Zipcode Phone Number [facility] DEPARTMENT OF PATHOLOGY AND [address] [place] [address] Centromere antibody (07/07/2019 2:30 PM CDT) Pathologist [facility] Centromere <0.2 0.0 - 0.9 [facility] Centromere Negative [facility] antibody interp Comment: HOSPITAL Anti-centromere antibodies are found in patients with systemic sclerosis (SSc or scleroderma), especially for those with limite d cutaneous or CREST syndrome. Anti-centromere antibodies may also be found in patients with other rheumatic or connective tissue diseases. Specimen Serum Performing Organization Address City/State/Zipcode Phone Number [facility] DEPARTMENT OF PATHOLOGY AND [address] [place] [phone] DNA Ab screen (07/07/2019 2:30 PM CDT) Pathologist [facility] nature DNA Ab screen Not Detected Not-Detected [facility] Specimen Blood Performing Organization Address City/State/Zipcode Phone Number [facility] DEPARTMENT OF PATHOLOGY AND [address] [place], [place] [address] [facility] [address] [place] [address] Anti-neutrophilic cytoplasmic Abs panel (07/07/2019 2:30 PM CDT) Pathologist Sig nature ANCA screen Negative Negative [facility] Specimen Blood Performing Organization Address City/State/Zipcode Phone Number [facility] DEPARTMENT OF PATHOLOGY AND [address] [place], [place] [address] [facility] [address] [place] [address] CT Cardiac Overread (07/06/2019 6:20 PM CDT) [...] Performing Organization Address City/State/Zipcode Phone Number [facility] [address] [place] [address] Cv cta coronary arteries w contrast and ffr if needed (07/06/2019 1:32 PM CDT) Specimen Narrative Performed At This result has an attachment that is no t available. [facility] Nuclear Cardiology and Card iac [place] [address] [address] CTA Coronary Arteries R eport Pat.Name: PAOLA KWONG Pat.ID: [id number] .Date: 07/06/2019 Refer.MD: MILTON ELLINGTON MD Exam Time: 1:09:00 PM Study Type:C TA Coronary Arteries Height: 67in Weight: 212lb BSA: 2.07 m2 Age: 4 1965,53Y Sex: MALE BP: 151/83 HR: 54 bpm Nuclear Tech:Samina Beyer, RT(R)(CT) Pat. Stat.:Inpatient Tape Vol: 33.2, CPT - 4: CCTA w Thoracic Aorta (NonCongenital) [id number] Nuclear Event ID:[id number] Order ID: [id number] Reason for Study:Pre-Op CABG, CAD History / Clinical:Coronary artery disease, Diabetes, Hyperlipidemia, Hypertension, S/P PCI 07/2007, Liver cirrhosis/Hepatiti s C Procedures: CT Prospective (phases) Race: C SUMMARY: Technique: IV contrast was administered and sequential 0.[address] cuts were obtained through the chest using the Siemens [facility] moy Force CT scanner. Image post-processing consisting of multiplan ar and 3D reconstructions were performed using the [employer] workstation. Interactive image viewing, volumetric dis play [...] refer to the separate radiology report in [facility] for any additional non-cardiovascular findings. STUDY QUALITY The study quality is good. COMMENTS None. FINDINGS: Signed 07/06/2019 05:59 PM Sreedhar Walton MD Procedure Note Interface, Radiology Results In - 2019 5:59 PM CDT Nuclear Cardiology and Cardiac CT [address] [place] [address] CTA Coronary Arteri es Report Pat.Name: PAOLA KWONG Pat.I D: [id number] St.Date: 07/06/2019 Refer.MD: MILTON ELLINGTON MD Exam Time: 1:09:00 PM Study Type:CTA Coronary Arteries Height: 67in Weigh t: 212lb BSA: 2.07 m2 Age: 6 1965,53Y Sex: MALE BP: 151/83 HR: 54 bpm Nuclear Tech:Samina Beyer RT(R)(CT) Pat. Stat.:Inpatient Tape Vol: 33.2, CPT - 4: CCTA w Thoracic Aorta (NonCo ngenital) [id number] Nuclear Event ID:[id number] Order ID: [id number] Reason for Study:Pre-Op CABG, CAD History / Clinical:Coronary artery disea se, Diabetes, Hyperlipidemia, Hypertension, S/P PCI 07/2007, Liver cirr hosis/Hepatitis C Procedures: CT Prospective (phases) Race: C SUMMARY: Technique: IV contrast was administered and sequential 0.[address] cuts were obtained through the chest using e Siemens [employer] CT scanner. Image post-processing consistin g of multiplanar and 3D reconstructions were performed using the [employer] workstation. Interactive image viewing, volumetric display and [...] to the separate radiology r eport in [facility] for any additional non-cardiovascular findings. STUDY QUALITY The study quality is good. COMMENTS None. FINDINGS: Signed 07/06/2019 05:59 PM Sreedhar [place] MD Performing Organization Address [facility] Phone Number [facility] [address] [place] [address] HIV Ag/Ab combination (07/06/2019 5:20 AM CDT) Pathologist [facility] HIV Ag/Ab combination Non-reactive Non-reactive [facility] Specimen Blood Performing Organization Address [facility] Phone Number [facility] DEPARTMENT OF PATHOLOGY AND [address] [place] [address] [place] [address] Prothrombin time with INR (07/06/2019 5:20 AM CDT)Only the most recent of3 resultswithin the time period is included. [facility] Prothrombin time 14.5 11.5 - 14.5 [facility] INR 1.1 [place] Comment: [facility] International Normalized Ratio (INR) is a [facility] monitoring tool for patients who are stable on oral anticoagulant therapy. An INR of 2.0-3.0 is suggested for deep vein thrombosis/pulmonary embolism. Specimen Blood Performing Organization Address [facility] Phone Number [facility] DEPARTMENT OF PATHOLOGY AND [address] [place] [address] [address] [address] Rheumatoid factor (07/06/2019 5:20 AM CDT) Pathologist [facility] Rheumatoid factor <10 0 - 13 IU/mL [facility] Specimen Plasma specimen Performing Organization Address [facility] Phone Number [facility] DEPARTMENT OF PATHOLOGY AND [address] [place] [address] [phone] [address] C3 complement component (07/06/2019 5:20 AM CDT) Pathologist [facility] C3 complement 133 90 - 180 mg/dL [facility] L Specimen Plasma specimen Performing Organization Address [facility] Phone Number [facility] DEPARTMENT OF PATHOLOGY AND [address] [place] [address] 0 [place] [address] C4 complement component (07/06/2019 5:20 AM CDT) Pathologist Sig nature C4 complement 34 10 - 40 mg/dL [facility] Specimen Plasma specimen Performing Organization Address [facility] Phone Number [facility] DEPARTMENT OF PATHOLOGY AND [address] [place] [address] 0 [facility] [address] [place] [address] Transthoracic Echocardiogram Complete, (w Contrast, Strain and 3D if needed) (07/05/2019 9:25 AM CDT) Specimen Narrative Performed At [facility] Echo cardiography Report [address] [place] [address] Pat.Name: PAOLA KWONG Pat.ID: [id number] .Date: 07/05/2019 Refer.MD: MILTON ELLINGTON MD Exam Time: 7:54:00 AM Study Type:R outine Echo Height: 67in Weight: 212lb BSA: 2.07 m2 Ag e: 1965,53Y Sex: MALE BP: 157/71 Sonogrphr: Audrey Bella RDCS, RVSPat. Stat.:Inpatien t Room: [facility] Study S tatus:Final Echo Event ID:[id number] Order ID: [id number] Reason for Study:Chest pain, suspected c ardiac etiology History / Clinical:Chest Pain, Diabetes, Hyperlipidemia, Hypertension, Cirrhosis, AR, Infectious Viral Hepatiti s Procedures: 2D Echo, [...] PA systolic pressure. MEASUREMENTS: 2D Parasternal Long [place] Ao An 2 cm LVPWd 1.5 cm [...] - 2019 10:49 AM CDT Echocardiography Report [address] [place] [address] Pat.Name: PAOLA KWONG Pat.I D: [id number] St.Date: 07/05/2019 Refer.MD: MILTON ELLINGTON MD Exam Time: 7:54:00 AM Study Type:Routine Echo Height: 67in Weigh t: 212lb BSA: 2.07 m2 Age: 6 1965,53Y Sex: MALE BP: 157/71 Sonogrphr: Audrey Bella RDCS, RVSPat. Stat.:Inpatient Room: [facility] Study Status:Final Echo Event ID:[id number] Order ID: [id number] Reason for Study:Chest pain, suspected c ardiac etiology History / Clinical:Chest Pain, Diabetes, Hyperlipidemia, Hypertension, Cirrhosis, AR, Infectious Viral Hepatiti s Procedures: 2D Echo, [...] PA systolic pressure. MEASUREMENTS: 2D Parasternal Long [place] Ao An 2 cm LVPW d 1.5 [...] Organization Address City/State/Zipcode Phone Number [facility] [address] [place] [address] Vancomycin level, random (07/05/2019 5:14 AM CDT)Only the most recent of8 resultswithin the time period is included. Pathologist Sig nature Vancomycin, random 11.9 ug/mL [facility] ITAL Specimen Serum Performing Organization Address City/[facility]/Zipcode Phone Number [facility] DEPARTMENT OF PATHOLOGY AND [address] [place], [place] [address] GENOMIC MEDICINE [facility] [address] [place] [address] [facility] NEED PHYS SKILL,DX OR RX (07/02/2019 2:59 PM SNUFF DRIER) Narrative Performed At Estela Padilla RN 07/02/2019 3:03 PM Midline Date/Time: 07/02/2019 2:59 PM Performed by: Kaykay Rain Authorized by: Milton [place] Sr., MD Consent: Consent obtained: Verbal Consent given by: Patient Risks discussed: arterial puncture, incorrect place ment, nerve damage, infection, bleeding, superficial thrombu s and deep vein thrombus Alternatives discussed: No treatment, delayed cathy atment and alternative treatment [place] protocol: Procedure explained and questions ans wered [...] 4.5. Indication: Poor venous access and known care home IV therapy Location: Right basilic Device Type: Non-valved Catheter size: 4 Fr Catheter to vein ratio: 31% Line Characteristics: Catheter Brand: BioFlo Midline External Catheter Length (cm): 0 Internal Catheter Length (cm): 10 Total Catheter Length (cm): 10 Catheter Lot Number: [id number] Catheter Expiration Date: 12/26/2020 Procedure Details: Landmarks [...] complications Vancomycin level, trough (07/01/2019 2:30 PM SNUFF DRIER) Vancomycin, 23.0 (HH) 10.0 - 20.0 [facility] trough Comment: ug/mL HOSPITAL Therapeutic Ranges: Peak 30.0 - 40.0 ug/mL Trough 10.0 - 20.0 ug/mL Specimen Serum Performing Organization Address City/State/Zipcode Phone Number [facility] DEPARTMENT OF PATHOLOGY AND [address] [place], [place] [address] [address] Surgical pathology request (06/30/2019 11:36 AM SNUFF DRIER) [facility] DEPARTMENT OF PATHOLOGY AND GENOMIC MEDICINE Surgical pathology See link below [facility] DEPARTMENT OF report for PDF Lab PATHOLOGY AND Report GENOMIC MEDICINE Result status This is Final [facility] DEPARTMENT OF Report for PATHOLOGY AND [id number] GENOMIC MEDICINE Specimen Performing Organization Address City/State/Zipcode Phone Number [facility] DEPARTMENT OF PATHOLOGY AND [address] [place], [place] [address] GENOMIC MEDICINE IR Transjugular Liver Biopsy (06/30/2019 9:39 AM SNUFF DRIER) Specimen Narrative Performed At Performing Radiologist EMERY Lauren MD Assistants None Anesthesia Type Moderate sedation was administered by the procedure nu rse and monitored by the procedure physician for a idpg-sv-yziw sedation time of 20 minutes. Lidocaine 1% [...] atrial pressure measures were then obtained. A 5-Colombian multipurpose catheter was advanced over the g uidewire and used to select the right hepatic vein. A CO2 right hepatic venogram was performed. Pressure measure ments were also obtained in both the free and wedge positions. The 9-F rench vascular sheath was then advanced into the right hepatic vein. The transjugular liver biopsy system was advanced through the 9-Colombian vascular sheath, and multiple 18-gauge core liver biopsy specimens were obtained and submitted to pathology. [facility] transjugular liver biopsy system and 9-Colombian vascular sheath were then removed from the [...] hepatic: 11 mmHg Wedge hepatic: 15 mmHg [facility]-[id number] Procedure Note [facility], Radiology Results Incoming - 06/30/2019 4:50 PM SNUFF DRIER Performing Radiologist Vamshi Lauren MD Assistants None Anesthesia Type Moderate sedation was administered by th e procedure nurse and monitored by the procedure physician for a ofqo-py-vqvx sedation time of 20 minutes. Lidocaine 1% [...] into the inferior vena cava. A long 9-Colombian vascular sheath was then placed,and adva nced over the guidewire into the right atrium. Right atrial pressure measures were then obtained. A 5-Colombian multipurpose catheter was advanced over the guidewire and used to select the right hepatic vein. A CO2 right hepatic venogram was performed. Pr essure measurements were also obtained in both the free and wedge positions. The 9-Colombian vascular sheath was then advanced into the right hepatic vein. The transjugular liver biopsy system was advanced through the 9-Colombian vascular sheath, and multiple 18-gauge core liver biopsy specimens were obtained and submitted to pathology. The transjugular liver biopsy system and 9-Colombian vascular sheath were then removed from the [...] hepatic: 11 mmHg Wedge hepatic: 15 mmHg [facility]-[id number] Performing Organization Address City/State/[place]coar Phone Number [facility] [address] [place] [address] ECG 12 lead (06/28/2019 9:41 AM SNUFF DRIER)Only the most recent of4 resultswithin the time period is included. Pathologist Sig nature Ventricular rate 62 [facility] Atrial rate 62 [facility] SC interval 152 [facility] QRSD interval 144 [...] is no t available. Performing Organization Address [facility] Phone Number [facility] MUSE [address] [place] [address] Troponin (06/28/2019 9:13 AM SNUFF DRIER)Only the most recent of4 resultswithin the time period is included. Troponin <0.006 0.000 - 0.040 [facility] Comment: ng/mL HOSPITAL In patients suspected of [...] specimen Performing Organization Address City/State/Zipcode Phone Number [facility] DEPARTMENT OF PATHOLOGY AND [address] [place], [place] [address] GENOMIC MEDICINE [facility] [address] [place] [address] IR Tunneled Dialysis Catheter Placement (06/23/2019 10:03 AM SNUFF DRIER) Specimen Narrative Performed At PERFORMING RADIOLOGIST: CONI Petersen MD ASSISTANTS: None. ANESTHESIA TYPE: Moderate sedation was administered by the procedure nu rse and monitored by the procedure physician for a total zqcf-jc-akhi se dation time of 8 minutes. Lidocaine [...] PLAN: -Catheter is ready for immediate use. [facility]-[id number] Procedure Note [facility], Radiology Results Incoming - 06/24/2019 7:31 AM SNUFF DRIER PERFORMING RADIOLOGIST: Will Petersen MD ASSISTANTS: None. ANESTHESIA TYPE: Moderate sedation was administered by [facility] procedure nurse and monitored by the procedure physician for a total wfoc-vd-wwey sedation time of 8 minutes. Lidocaine 1% [...] PLAN: -Catheter is ready for immediate use. [facility]-[id number] [facility] Organization Address City/State/Zipcode Phone Number [facility] [address] [place] [address] XR Abdomen 1 Vw Portable (06/21/2019 4:08 PM SNUFF DRIER) Specimen Narrative Performed At EXAMINATION: XR ABDOMEN [...] are unremarkable. The lung bases are clear. [facility]-[id number] Procedure Note Interface, Radiology Results Incoming - 06/21/2019 6:05 PM SNUFF DRIER EXAMINATION: XR ABDOMEN 1 VW PORTABLE CLINICAL [...] are unremarkable. The lung bases are clear. [facility]-[id number] Performing Organization Address City/State/Zipcode Phone Number EMERY [address] [place] [address] Aerobic culture (06/20/2019 5:32 PM SNUFF DRIER) Aerobic culture Klebsiella pneumoniae GONZALEZ METHODIS T isolate [facility] The performance characteristics of this assay on this isolate were validated by the Microbiology Laboratory at [facility]. This source has not been approve d [...] were validated by the Microbiology Laboratory at [facility]. This source has not been approve d [...] were validated by the Microbiology Laboratory at [facility]. This source has not been approved by the U.S. Food and Drug Administration. The results are not intended to be used as the sole means for clinical win gnosis or patient management. The Microbiology Laboratory is authorized under the clinical Laboratory Improvement Amendments of 1988 (CLIA-88) to perform high complexit y testing. Aerobic culture Klebsiella pneumoniae GONZALEZ WHITE T isolate [facility] The performance characteristics of this assay on this isolate were validated by the Microbiology Laboratory at [facility]. This source has not been approve d by the U.S. Food and Drug Administration. The results are n ot intended to be used as the sole means for clinical win gnosis or patient management. The Microbiology Laboratory i s authorized under the clinical Laboratory Improvement Amendments of 1987 (CLIA-88) to perform high complexit y testing. (A) Aerobic culture Citrobacter freundii complex [facility] ETHODIST isolate [facility] The performance characteristics of this assay on this isolate were validated by the Microbiology Laboratory at [facility]. This source has not been approve d [...] CRYS 2 mcg/mL: Susceptible Enterococcus faecalis Erythromycin CRSY 1 mcg/mL: Resistant Enterococcus faecalis Gentamicin-Syn CRYS [...] complex Performing Organization Address City/State/Zipcode Phone Number [facility] DEPARTMENT OF PATHOLOGY AND [address] [place], [place] [address] GENOMIC MEDICINE [address] [address] Gram stain (06/20/2019 5:32 PM SNUFF DRIER) Gram stain isolate Rare WBC's [facility] Many Gram negative rods HOSPITAL Rare Gram positive cocci in pairs Comment: Specimen Information Specimen Source: Drainage Specimen Site: Not otherwise specified Specimen Drainage - Not otherwise specified Performing Organization Address [facility]/Zipcode Phone Number [facility] DEPARTMENT OF PATHOLOGY AND [address] [place] [address] Protein, urine, random (06/19/2019 7:06 PM SNUFF DRIER) Pathologist Sig nature Protein, urine random 584 mg/dL [facility] Specimen Urine Performing Organization Address [facility] Phone Number [facility] DEPARTMENT OF PATHOLOGY AND [address] [place] [address] [place] [address] Creatinine level, urine, random (06/19/2019 7:06 PM SNUFF DRIER) Pathologist Sig nature Creatinine, urine, 99 mg/dL [facility] Specimen Urine Performing Organization Address [facility] Phone Number [facility] DEPARTMENT OF PATHOLOGY AND [address] [place] [address] Anti smooth muscle Ab screen (06/19/2019 12:00 AM SNUFF DRIER) Pathologist Sig nature Anti smooth muscle Not Detected Not-Detected [facility] Ab [facility] Specimen Blood Performing Organization Address [facility] Phone Number [facility] DEPARTMENT OF PATHOLOGY AND [address] [place] [address] Anti mitochondria screen (06/19/2019 12:00 AM SNUFF DRIER) Anti mitochondria Not Detected Not-Detected [facility] HOSPITAL Specimen Blood Performing Organization Address [facility] Phone Number [facility] DEPARTMENT OF PATHOLOGY AND [address] [place] [address] Urine culture (06/18/2019 7:24 AM SNUFF DRIER)Only the most recent of2 resultswithin the time period is included. Urine culture No growth after 24 hours [facility] Comment: HOSPITAL Specimen Information Specimen Source: Urine Specimen Site: Clean catch Specimen Urine Performing Organization Address City/[facility] Phone Number [facility] DEPARTMENT OF PATHOLOGY AND [address] [place] [address] [phone] [address] Urinalysis screen and microscopy, with reflex to culture (06/18/2019 5:30 AM SNUFF DRIER)Only the most recent of2 resultswithin the time period is included. Pathologist Sig nature Specimen site Clean catch [facility] Color, UA Yellow [facility] Appearance, UA Cloudy [facility] Specific gravity, 1.011 1.001 - 1.035 [facility] pH, UA 5.0 5.0 - 8.5 [facility] Protein, UA 3+ (A) Negative [facility] Glucose, UA 1+ (A) Negative [facility] Ketones, UA Negative Negative [facility] Bilirubin, UA Negative Negative [facility] Blood, UA Small (A) Negative [facility] Nitrite, UA Negative Negative [facility] Urobilinogen, UA <2.0 <2.0 [facility] Leukocyte esterase, Negative Negative [facility] WBC, UA 14 (H) 0 - 1 /HPF [facility] RBC, UA 1 0 - 5 /HPF [facility] Bacteria, UA Few None seen [facility] WBC clumps, UA Few (A) [facility] Yeast, UA None seen [facility] Yeast with None seen [facility] pseudohyphae, HOSPITAL Amorphous crystals Few [facility] Granular casts, UA 1 0 - 1 /LPF [facility] Specimen Urine Performing Organization Address City/State/Zipcode Phone Number [facility] DEPARTMENT OF PATHOLOGY AND [address] [place] [address] [phone] [address] Hepatitis B surface Ab, quantitative (06/18/2019 5:00 AM SNUFF DRIER) Hepatitis B surface <3.10 IU/L [facility] RE[facility] Ab Comment: The anti-HBs [...] and Tissue-Based Products (HCT/P) . Performed by [facility], [address] [place] [id number] [email or web address], Roberto Almaguer MD, Lab. Director Specimen Serum Performing Organization Address [facility] Phone Number [facility] [address] [place] [address] [facility] [address] [place] [address] Ammonia level (06/18/2019 5:00 AM SNUFF DRIER) Pathologist Sig nature Ammonia 63 (H) 16 - 60 umol/L [facility] Specimen Blood Performing Organization Address [facility] Phone Number [facility] DEPARTMENT OF PATHOLOGY AND [address] [place] [address] [address] Hepatitis C antibody (06/18/2019 4:00 AM SNUFF DRIER) Pathologist Sig [facility] Hepatitis C Ab Non-reactive Non-reactive [facility] Specimen Serum Performing Organization Address [facility] Phone Number [facility] DEPARTMENT OF PATHOLOGY AND [address] [place] [address] [address] [address] Alpha-1 antitrypsin level (06/18/2019 4:00 AM SNUFF DRIER) Pathologist Sig [facility] Alpha-1 antitrypsin 166 90 - 200 mg/dL [facility] Specimen Plasma specimen Performing Organization Address [facility] Phone Number [facility] DEPARTMENT OF PATHOLOGY AND [address] [place] [address] [address] [address] Hepatitis A antibody IgM (06/18/2019 4:00 AM SNUFF DRIER) Pathologist Sig nature Hepatitis A IgM Non-reactive Non-reactive [facility] Specimen Serum Performing Organization Address City/[facility] Phone Number [facility] DEPARTMENT OF PATHOLOGY AND [address] [place] [address] [place] [address] Ceruloplasmin level (06/18/2019 4:00 AM SNUFF DRIER) Pathologist Sig nature Ceruloplasmin 22 15 - 30 mg/dL [facility] Specimen Plasma specimen Performing Organization Address City/[facility] Phone Number [facility] DEPARTMENT OF PATHOLOGY AND [address] [place] [address] Alpha fetoprotein (06/18/2019 4:00 AM SNUFF DRIER) Alpha fetoprotein 1.6 0.0 - 8.3 [place] Comment: ng/mL EPISCOPAL The Lexis 8000 AFP immunoassay was used. HOSPITAL Results obtained with different assay methods or kits should not be used interchangeably and may be differen t. Specimen Serum Performing Organization Address [facility] Phone Number [facility] DEPARTMENT OF PATHOLOGY AND [address] [place] [address] Hepatitis B core antibody IgM (06/18/2019 4:00 AM SNUFF DRIER) Pathologist Sig nature Hepatitis B core Non-reactive Non-reactive [facility] IgM HOSPITAL Specimen Serum Performing Organization Address City/[facility] Phone Number [facility] DEPARTMENT OF PATHOLOGY AND [address] [place] [address] [place] [address] Hepatitis B core antibody total (06/18/2019 4:00 AM SNUFF DRIER) Pathologist Sig nature Hepatitis B core Non-reactive Non-reactive [facility] total Ab HOSPITAL Specimen Serum Performing Organization Address City/[facility]/Zipcode Phone Number [facility] DEPARTMENT OF PATHOLOGY AND [address] [place] [address] [place] [address] Hepatitis B surface antibody (06/18/2019 4:00 AM SNUFF DRIER) Pathologist Sig nature Hepatitis B surface Non-reactive Non-reactive [facility] Ab [facility] Specimen Serum Performing Organization Address City/[facility] Phone Number [facility] DEPARTMENT OF PATHOLOGY AND [address] [place] [address] [place] [address] Hepatitis B surface antigen (06/18/2019 4:00 AM SNUFF DRIER) Pathologist Sig nature Hepatitis B surface Non-reactive Non-reactive [facility] Ag [facility] Specimen Serum Performing Organization Address City/[facility] Phone Number [facility] DEPARTMENT OF PATHOLOGY AND [address] [place] [address] [place] [address] ANNE (06/18/2019 4:00 AM SNUFF DRIER) ANNE screen Negative Negative [facility] Comment: HOSPITAL Test performed using NOVA Rackupe DAPI ANNE kit (Indirect Immunofluorescence Assay) for Anti-Nuclear Antibody on [employer]-Klip.iner 160 Analyzer. Specimen Blood Performing Organization Address City/[facility] Phone Number [facility] DEPARTMENT OF PATHOLOGY AND [address] [place] [address] [place] [phone] GGT (06/18/2019 4:00 AM SNUFF DRIER) Pathologist Sig [facility] GGT 80 (H) 0 - 59 U/L [facility] Specimen Plasma specimen Performing Organization Address [facility] Phone Number [facility] DEPARTMENT OF PATHOLOGY AND [address] [place], [place] [address] [address] [place] [address] US Abdomen Complete (06/17/2019 4:48 PM SNUFF DRIER) Specimen Narrative Performed At EXAM: US ABDOMEN COMPLETE [facility] CLINICAL DATA: 53 years Male Cirrho [...] participate in the care of your patient. [facility]-[id number] Procedure Note Interface, Radiology Results Incoming - 06/17/2019 4:59 PM SNUFF DRIER EXAM: US ABDOMEN COMPLETE CLINICAL DATA: 53 [...] participate in the care of your patient. [facility]-[id number] Performing Organization Address City/State/Zipcode Phone Number [facility] [address] [place] [address] US Abdominal Doppler (06/17/2019 4:48 PM SNUFF DRIER) Specimen Narrative Performed At EXAMINATION: US ABDOMINAL DOPPLER [facility] CLINICAL HISTORY: rule out portal HTN [...] and vein are identified and are patent. [facility]-[id number] Procedure Note Interface, Radiology Results Incoming - 06/17/2019 4:55 PM SNUFF DRIER EXAMINATION: US ABDOMINAL DOPPLER CLINICAL HISTORY: rule [...] and vein are identified and are patent. [facility]-[id number] Performing Organization Address City/State/Zipcode Phone Number [facility] [address] [place] [address] US Renal (06/17/2019 2:26 PM SNUFF DRIER) Specimen Narrative Performed At EXAMINATION: US RENAL RADITEMPE [facility] CLINICAL HISTORY: Flank pain stone d isease suspected COMPARISON: None. IMPRESSION: The right kidney measures 12 cm in jeanine gth. The left kidney measures 13.9 cm in le ngth. There is no renal mass, stone, cyst, or hydronephrosis . Echogenicity is normal. The urinary bladder is unremarkable. [facility]-[id number] Procedure Note Interface, Radiology Results Incoming - 06/17/2019 2:32 PM SNUFF DRIER EXAMINATION: US RENAL CLINICAL HISTORY: Flank pain stone dis ease suspected COMPARISON: None. IMPRESSION: The right kidney measures 12 cm in juan ramon th. The left kidney measures 13.9 cm in jeanine gth. There is no renal mass, stone, cyst, or hydronephrosis. Echogenicity is normal. The urinary bladder is unremarkable. [facility]-[id number] Performing Organization Address City/[facility]/Zipcode Phone Number [facility] [address] [place] [address] Celiac disease reflexive cascade (06/17/2019 4:53 AM SNUFF DRIER) IgA 449 (H) 68 - 408 mg/dL [facility] Comment: Total IgA is within or higher than established ranges. Tissue Transglutaminase, IgA to follow. REFERENCE INTERVAL: Immunoglobulin A Access complete set of age- and/or gender-specific ref erence intervals for this test in the [facility] ([facility]). Performed by [facility], [address] [place] [address] [id number] [email or web address], Roberto Almaguer MD, Lab. Director Specimen Serum Narrative Performed At [facility] [place] with reae back to Yu Kwon/ [facility] [place]16[place]2019 [facility] 08:04 by NEFTALY. Performing Organization Address City/[facility]/Zipcode Phone Number [facility] [address] [place] [address] [facility] [address] [place] [address] Tissue transglutaminase Ab, IgA (06/17/2019 4:53 AM SNUFF DRIER) Tissue 1 0 - 3 U/mL [facility] REF transglutaminase Ab, Comment: LAB IgA [...] sitive predictive value for disease. Performed by [facility], [address] [place] [address] [email or web address], Roberto Almaguer MD, Lab. Director Specimen Serum Narrative Performed At [facility] called with reyousif back to Yu Kwon/ [facility] [place] 06/16/2019 [facility] 08:04 by NEFTALY. Performing Organization Address City/State/Zipcode Phone Number [facility] [address] [place] [address] [facility] [address] [place] [address] Fecal calprotectin (06/15/2019 4:30 PM SNUFF DRIER) Pathologist Sig nature Fecal calprotectin 57.64 <15.6-120mg/kg [facility] Specimen Blood Performing Organization Address City/State/Zipcode Phone Number [facility] DEPARTMENT OF PATHOLOGY AND [address] [place], [place] [address] GENOMIC MEDICINE [facility] [address] [place] [address] Spirometry, diffusion, lung volumes (06/15/2019 2:29 PM SNUFF DRIER) Pathologist Sig nature FEV1 Pre 2.23 2.81 [...] available. Performing Organization Address City/State/Zipcode Phone Number [facility] [address] [place] [address] Us carotid duplex (06/15/2019 11:31 AM SNUFF DRIER) Specimen Narrative Performed At [facility] Vascular U ltrasound Laboratory Carotid A rtery Duplex Report [address] [place] [address] For rn quality purposes, the categorization of the degree of the stenosis of this exam is based on criteria described i n the IAC carotid stenosis grading white paper( www.intersocietal.org/Va scular) and Thanh Nava., Александр CGrover., et al. Carotid artery stenosis: wagner-scale and Doppler US diagnosis-- Society of Radiologists in Ultrasound Consensus Conference. Radio logy. 2002; 229(2):340-6. Pat.Name: PAOLA KWONG Pat.ID: [id number] .Date: 06/15/2019 Refer.MD: MILTON ELLINGTON MD Exam Time: 11:04:00 AM Study Type:Ca rotid Height: 67in Weight: 212lb BSA: 2.07 m2 Ag e: 1965,53Y Sex: MALE BP: 116/68 Sonogrphr: Suad Greco TRAVIS, RVT Pat. Stat.:Inpatient Room: [address] ol: ED, CPT - 4: 06838 Echo Deysi nt ID:[id number] Order ID: [id number] Reason for Study:Pre-op evaluation History / Clinical:Smoker, CAD, S/p AR, DM, HTN, HLD, Liver cirrhosis, Chest pain, [...] Radiology Results In - 2019 8:06 PM [facility] Vascular Ultrasound Laboratory Carotid Artery Dupl ex Report [address] [facility], [place] [address] , [place] [address] For rn quality purposes, the sarah gorization of the degree of the stenosis of this exam is based on criteria described in the IAC carotid stenosis grading white paper( www.intersocietal.org/Vascular) and Thanh Nava., Herbie Fountain, et al. Carotid artery stenosis: wagner-scale and Doppler US diagnosis--Society of Radiologists in Ultrasound Consensus Conference. Radiology. 2003 Nov; 229(2):340-6. Pat.Name: PAOLA KWONG Pat.I D: [id number] St.Date: 06/15/2019 Refer.MD: MILTON ELLINGTON MD Exam Time: 11:04:00 AM Study Type:Carotid Height: 67in Weigh t: 212lb BSA: 2.07 m2 Age: 6 1965,53Y Sex: MALE BP: 116/68 Sonogrphr: Suad Greco RDCS, RVT Pat. Stat.:Inpatient Room: [address] Vol: ED, CPT - 4: [address]290 Echo Event ID:[id number] Order ID: [id number] Reason for Study:Pre-op evaluation History / Clinical:Smoker, CAD, S/p AR, DM, HTN, HLD, Liver cirrhosis, Chest pain, [...] Organization Address City/State/Zipcode Phone Number [facility] [address] [place] [address] CT Head Wo Contrast (06/14/2019 8:31 PM SNUFF DRIER) Specimen Narrative Performed At EXAM: CT HEAD [...] appropria te moderation of exposure. Automated dose risk management intern nology is applied to adjust radiation exposure [...] for further evaluatio n if clinically indicated. [facility]-[id number] Procedure Note [facility], Radiology Results Incoming - 06/14/2019 8:39 PM SNUFF DRIER EXAM: CT HEAD WO CONTRAST CLINICAL HISTORY: [...] ensure appropriate moderation of exposure. Automated dose risk management intern nology is applied to adjust radiation exposure [...] for fur ther evaluation if clinically indicated. [facility]-[id number] Performing Organization Address [facility] Phone Number [facility] [address] [place] [address] Gastrointestinal panel (06/14/2019 5:48 AM SNUFF DRIER)Only the most recent of2 results within the time period is included. Pathologist [facility] Gastrointestinal panel Negative for all pathogens tested: [place] Negative for Salmonella EPISCOPAL Negative for Campylobacter [facility] Negative for Diarrheagenic E coli/Shigella Negative [...] Specimen Stool - Nonpreserved Performing Organization Address [facility] Phone Number [facility] DEPARTMENT OF PATHOLOGY AND [address] [place], [place] [address] GENOM[address] [address] Thyroid stimulating hormone (06/14/2019 5:14 AM SNUFF DRIER) Pathologist Sig nature TSH 1.95 0.27 - 4.20 uIU/mL [facility] ITAL Specimen Plasma specimen Performing Organization Address [facility]/State/Zipcode Phone Number [facility] DEPARTMENT OF PATHOLOGY AND [address] [place] [address] [phone] [address] T4, free (06/14/2019 5:14 AM SNUFF DRIER) Pathologist Sig nature T4, free 0.8 (L) 0.9 - 1.7 ng/dL [facility] L Specimen Plasma specimen Performing Organization Address City/[facility]/Zipcode Phone Number [facility] DEPARTMENT OF PATHOLOGY AND [address] [place] [address] [phone] [address] Hemoglobin A1c (06/14/2019 5:14 AM SNUFF DRIER) Hemoglobin A1C 12.6 (H) 4.0 - 5.6 % [facility] Comment: HOSPITAL HbA1c cutoffs for diagnosing diabetes: [...] 1 diabetes. Specimen Blood Performing Organization Address City/[facility]/Zipcode Phone Number [facility] DEPARTMENT OF PATHOLOGY AND [address] [place] [address] [phone] [address] Lipid panel (06/14/2019 5:14 AM SNUFF DRIER) Cholesterol 177 <200 mg/dL [facility] Triglycerides 407 (H) <150 mg/dL [facility] HDL cholesterol 32 (L) >40 mg/dL [facility] LDL cholesterol 104 (H)Comment: <100 mg/dL [facility] Result obtained by EPISCOPAL direct [facility] measurement Lipid panel [facility] interpretation Comment: EPISCOPAL Total Cholesterol (mg/dL) HOSPIT AL <200 Desirable [...] mg/dL) Specimen Plasma specimen Performing Organization Address City/[facility] Phone Number [facility] DEPARTMENT OF PATHOLOGY AND [address] [place] [address] [phone] [address] Manual differential (06/14/2019 4:59 AM SNUFF DRIER) Manual differential PERFORMED [facility] Neutrophils 53.0 39.0 - 69.0 % [facility] Lymphocytes 36.0 25.0 - 45.0 % [facility] Monocytes 6.0 0.0 - 10.0 % [facility] Eosinophils 4.0 0.0 - 5.0 % [facility] Basophils 1.0 0.0 - 1.0 % [facility] Metamyelocytes 0 % [facility] Promyelocytes 0 % [facility] Platelet slide review Rebekah adequate [facility] Anisocytosis Moderate [facility] Polychromasia Moderate [facility] Ovalocytes Moderate [facility] Specimen Performing Organization Address [facility] Phone Number [facility] DEPARTMENT OF PATHOLOGY AND [address] [place] [address] [phone] [address] Influenza antigen (06/12/2019 9:15 PM SNUFF DRIER) Influenza antigen Negative for Influenza A/B antigen. [facility] Comment: HOSPITAL Specimen Information Specimen Source: Nares Specimen Site: Right Specimen Nares - Right Performing Organization Address [facility] Phone Number [facility] DEPARTMENT OF PATHOLOGY AND [address] [place] [address] [phone] [address] XR Chest 1 Vw Portable (06/12/2019 8:55 PM SNUFF DRIER) Specimen Narrative Performed At EXAMINATION: XR CHEST [...] No acute osseous abnormalities are visua lized. [facility]-[id number] Procedure Note Hm Interface, Radiology Results Incoming - 06/12/2019 9:01 PM SNUFF DRIER EXAMINATION: XR CHEST 1 VW PORTABLE CLINICAL HISTORY: tachy COMPARISON: 03/20/2018 IMPRESSION: No radiographic evidence for acute cardi opulmonary process. Cardiomediastinal silhouette is within n ormal limits of size. No focal or confluent airspace consolida tion is seen on this single AP plane to suggest acute pneumonia. No sizable pleural effusion. No pneumothorax identified. No acute osseous abnormalities are visua lized. [facility]-[id number] Performing Organization Address City/State/Zipcode Phone Number [facility] [address] [place] [address] ECG ED Preliminary Interpretation - Not an Order (06/12/2019 7:50 PM SNUFF DRIER) Narrative Performed At Guillermo Jeffery MD 06/22/2019 10 :44 AM ECG ED Preliminary Interpretation - Not an Order Performed by: Guillermo Jeffery MD Authorized by: Guillermo Jeffery MD ECG reviewed by ED Physician in the abse nce of a commercial portfolio manager: yes Previous ECG: Previous ECG: Unavailable Interpretation: Interpretation: abnormal Rate: ECG rate: 113 ECG rate assessment: tachycardic Rhythm: Rhythm: sinus tachycardia Ectopy: Ectopy: none QRS: QRS axis: Normal QRS intervals: Normal Conduction: Conduction: abnormal Abnormal conduction: LPFB ST segments: ST segments: Normal Other findings: Other findings: prolonged qTc interval Partial thromboplastin time, activated (06/12/2019 7:49 PM SNUFF DRIER) PTT 28.1 23.0 - 36.0 [facility] Comment: sec HOSPITAL PTT therapeutic range for unfractionated heparin is 61.0-112.0 seconds which corresponds to Anti-Xa 0.3-0.7 U/ml. Specimen Blood Performing Organization Address City/State/Zipcode Phone Number [facility] DEPARTMENT OF PATHOLOGY AND [address] [place], [place] [address] [address] B natriuretic peptide (06/12/2019 7:49 PM SNUFF DRIER) Pathologist Sig nature BNP 53 0 - 100 pg/mL [facility] Specimen Blood Narrative Performed At GLU results called to and read back by [facility] DEPARTMEN T OF PATHOLOGY AND GENOMIC TOSHIA PEREZ RN LIZBETH (name/location) MEDICINE at _ 06/12/2019 20:51 BY Performing Organization Address City/State/Zipcode Phone Number [facility] DEPARTMENT OF PATHOLOGY AND [address] [place] [address] [phone] [address] Comprehensive metabolic panel (06/12/2019 7:49 PM SNUFF DRIER) Sodium 137 135 - 148 [facility] mEq/L [facility] Potassium 3.9 3.5 - 5.0 [facility] mEq/L [facility] Chloride 103 98 - 112 mEq/L [facility] CO2 19 (L) 24 - 31 mEq/L [facility] Anion gap 15@ANIO 7 - 15 mEq/L [facility] BUN 25 (H) 6 - 20 mg/dL [facility] Creatinine 2.04 (H) 0.70 - 1.20 [facility] mg/dL HOSPITAL Glucose 519 (HH) 65 - 99 mg/dL [facility] Calcium 10.1 8.3 - 10.2 [facility] mg/dL HOSPITAL Protein 8.4 (H) 6.3 - 8.3 g/dL [facility] Comment: HOSPITAL Qbfkroo9706.6-7.0 g/dL 1 yyls8781.4-7.6 g/dL 7 months-4wgje760.1-7.3 g/dL 1-2 .6-7.5 g/dL >3 ivuio243.0-8.0 g/dL 18-1164917.3-8.3 g/dL Albumin 3.1 (L) 3.5 - 5.0 g/dL [facility] A/G ratio 0.6 (L) 0.7 - 3.8 [facility] Alkaline phosphatase 166 (H) 40 - 129 U/L [facility] AST 23 10 - 50 U/L [facility] ALT 24 5 - 50 U/L [facility] Total bilirubin 0.3 0.0 - 1.2 [facility] mg/dL HOSPITAL Specimen Plasma specimen Performing Organization Address City/State/Zipcode Phone Number [facility] DEPARTMENT OF PATHOLOGY AND [address] [place], [place] [address] GENOMIC MEDICINE [facility] [address] [place] [address] after 11/26/2018 Insurance Payer Benefit Plan / Subscriber ID Effective Dates Phone Addre ss Type Group [employer] [facility] xxxxxxxxxxxx 2019-Presen Exchange CHOICE EXCHANGE EXCHANGE t MARK[employer] Advance Directives For more information, please contact: [phone] Type Date Recorded 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
--- OUTSIDE RECORDS SUMMARY | 2019-11-27 07:50 | XMS REPORT | Clinical Summary ---
:[address] 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 after 11/26/2018 Results RHYTHM STRIP - SCAN (01/12/2019 3:42 PM CDT) Narrative Performed At This result has an attachment that is no t available. POC-Glucose meter (01/11/2019 12:15 PM CDT)Only the most recent of31 results within the time period is included. POC-Glucose Meter 119 (H)Comment: TESTED AT 70 - 110 mg/dL [facility] [address] [facility] [id number] Specimen Blood Performing Organization Address City/State/Zipcode Phone Number [address] [phone] CENTER CBC with platelet count + automated diff (01/11/2019 5:03 AM CDT)Only the most recent of6 resultswithin the time period is included. WBC 4.1 3.5 - 10.5 K/L [facility] RBC 3.72 (L) 4.63 - 6.08 M/L [facility] Hemoglobin 11.6 (L) 13.7 - 17.5 GM/DL [facility] Hematocrit 33.6 (L) 40.1 - 51.0 % [facility] MCV 90.3 79.0 - 92.2 fL [facility] MCH 31.2 25.7 - 32.2 pg [facility] MCHC 34.5 32.3 - 36.5 GM/DL [facility] RDW 13.7 11.6 - 14.4 % [facility] Platelets 170 150 - 450 K/CU MM [facility] MPV 11.8 9.4 - 12.4 fL [facility] nRBC 0 0 - 0 /100 WBC [facility] % Neutros 53 % [facility] % Lymphs 32 % [facility] % Monos 7 % [facility] % Eos 6 % [facility] % Baso 1 % [facility] # Neutros 2.17 1.78 - 5.38 K/L [facility] # Lymphs 1.31 (L) 1.32 - 3.57 K/L [facility] # Monos 0.29 (L) 0.30 - 0.82 K/L [facility] # Eos 0.26 0.04 - 0.54 K/L [facility] # Baso 0.03 0.01 - 0.08 K/L [facility] Immature Granulocytes-Relative 1 0 - 1 % C HI [facility] Specimen Blood Performing Organization Address City/State/Zipcode Phone Number [facility] [address] [place] [address] [place] Basic Metabolic Panel (01/11/2019 5:03 AM CDT)Only the most recent of6 results within the time period is included. Sodium 139 136 - 145 meq/L [facility] Potassium 4.5 3.5 - 5.1 meq/L [facility] Chloride 109 (H) 98 - 107 meq/L [facility] CO2 23 22 - 29 meq/L [facility] BUN 30 (H) 7 - 21 mg/dL [facility] Creatinine 1.87 (H) 0.57 - 1.25 mg/dL [facility] Glucose 219 (H) 70 - 105 mg/dL [facility] Calcium 8.9 8.4 - 10.2 mg/dL [facility] EGFR 38Comment: ESTIMATED GFR IS mL/min/1.73 sq m [facility] NOT ACCURATE CREATININE [facility] CLEARANCE IN PREDICTING GLOMERULAR FILTRATION RATE. ESTIMATED GFR IS NOT APPLICABLE FOR DIALYSIS PATIENTS. Specimen Blood Performing Organization Address City/State/Zipcode Phone Number [facility] [address] [place] [address] brain without IV contrast (01/10/2019 11:31 AM CDT)Only the most recent of2 resultswithin the time period is included. Specimen Narrative Performed At FINAL REPORT [facility] CT, BRAIN, WITHOUT CONTRAST INDICATION: Subdural [...] 4:47:25 Performing Organization Address City/State/Zipcode Phone Number [facility] CT chest without IV contrast (01/10/2019 11:31 AM CDT) Specimen Narrative Performed At FINAL REPORT [facility] TECHNIQUE: CT scan of the chest WITHOUT [...] MD Report Verified Date/Time:01/10/2019 18:24:57 Reading Location: [facility] B1 C013Y CT Body R eading Room [...] Verified Date/Time: 01/10/2019 1 8:24:57 Reading Location: [facility] B1 C013Y CT Body R eading Room Performing Organization Address City/State/Zipcode Phone Number [employer] [employer] D-dimer (01/10/2019 11:00 AM CDT) D-Dimer, Quant 2.14 (H) <0.50 MG/L FEU [facility] Specimen Blood Narrative Performed At Intended Use: The D-Dimer Assay can be used [facility] to aid in the diagnosis of Deep Vein Thrombosis (DVT) and Pulmonary Embolism Disease (PED). In patients with low pre-test probability, various studies concerning STA Liatest D-dimer test have reported that with a cutoff value of 0.50 MG/L FEU, the Negative Predictive Value (NPV) regarding the exclusion of thrombosis is within 95-100% range. Performing Organization Address City/State/Zipcode Phone Number [address] [address] CENTER XR chest 1 view portable / bedside (01/10/2019 7:16 AM CDT)Only the most recent of2 resultswithin the time period is included. Specimen Narrative Performed At FINAL REPORT [facility] Chest, AP view. History: Chest pain. Comparison: 01/06/2019. Discussion:The cardiomediastinal maria luz houette and pulmonary vasculature are within normal limits. Th e lungs are clear without evidence of consolidation or effusion. There are no acute osseous abnormalities. The soft tissues are unre markable. IMPRESSION: No acute cardiopulmonary abnormality. Signed: Britney Schwab MD Report Verified Date/Time:01/10/2019 08:17:19 Reading Location: [facility] C013 Ortho Con sult Reading Room [...] Verified Date/Time: 01/10/2019 0 8:17:19 Reading Location: [facility] C013X Ortho Con sult Reading Room Performing Organization Address City/State/Zipcode Phone Number [facility] ECG 12 lead (01/10/2019 6:30 AM CDT)Only the most recent of5 resultswithin the time period is included. Specimen Narrative Performed At Ventricular Rate 77 BPM GE MUSE Atrial Rate 77 BPM P-R Interval 138 ms QRS Duration 144 ms Q-T Interval 442 ms QTC Calculation(Bazett) 500 ms P [place] 30 degrees R [place] 41 degrees T [place] 30 degrees Normal sinus rhythm Limb lead [...] 442 ms QTC Calculation(Bazett) 500 ms P [place] 30 degrees R [place] 41 degrees T [place] 30 degrees Normal sinus rhythm Limb lead misplacement Right bundle branch block Nonspecific T wave abnormality Prolonged QT Abnormal ECG When compared with ECG of 10-JAN-2019 06 :01, Limb leads are now misplaced Confirmed by MD COOK YOCHAI ([id number]) on 01/12/2019 2:04:04 PM Performing Organization Address City/[facility] Phone Number [facility] Troponin I (01/10/2019 6:11 AM CDT)Only the most recent of7 resultswithin the time period is included. Troponin I 0.02 0.00 - 0.03 ng/mL [facility] Specimen Blood Narrative Performed At Troponin I (TnI) levels must be interpreted [facility] in the context of the presenting symptoms [...] tachyarrhythmia. Performing Organization Address City/State/Zipcode Phone Number [address] [address] CENTER B-type Natriuretic Factor (BNP) (01/10/2019 6:11 AM CDT)Only the most recent of 2 resultswithin the time period is included. BNP 130 (H) 0 - 100 pg/mL [facility] Specimen Blood Performing Organization Address City/[facility]/Zipcode Phone Number [address] [address] CENTER aPTT (01/09/2019 4:35 AM CDT)Only the most recent of8 resultswithin the time period is included. PTT 35.0 22.5 - 36.0 seconds [facility] Specimen Blood Performing Organization Address [facility] Phone Number [address] [address] [place] ECHOCARDIOGRAM REPORT - SCAN (01/08/2019 9:20 PM CDT) Narrative Performed At This result has an attachment that is no t available. PT/aPTT (01/08/2019 4:03 PM CDT) Protime 13.4 11.9 - 14.2 seconds [facility] INR 1.1 <=5.9 [facility] PTT 32.0 22.5 - 36.0 seconds [facility] Specimen Blood Narrative Performed At Effective 09/23/2018: PT Reference Range [facility] Change New: 11.9-14.2Previous: 11.7-14.7 RECOMMENDED COUMADIN/WARFARIN INR THERAPY RANGES STANDARD DOSE: 2.0-3.0Includes: PROPHYLAXIS for venous thrombosis, systemic embolization; TREATMENT for venous thrombosis and/or pulmonary embolus. HIGH RISK: Target INR is 2.5-3.5 for patients wiht mechanical heart valves. 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 Leon Fragoso [facility] 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 Tori Hillspreting Willard Healy PhysicianMD Procedure Type [...] MAGED BOND Gen carmine Male Visit Number [id number] Rac e Unknown [facility] Number [id number] Number Date of 1965 Ref erring Yvette Mccullough Shona Mckenzie Age 53 year(s) Son nav Fragoso RDCS 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 Tori Chaudhari erpreting Shona Whitmore MD Procedure [...] T CI: 2.47 l/min/m^2 Performing Organization Address City/[facility] Cent[facility]ode Phone Number [facility] ECHO HEARTLAB MKCKESSON CPACS Phosphorus (01/07/2019 6:01 AM CDT) Phosphorus 2.5 2.3 - 4.7 mg/dL [facility] Specimen Blood Narrative Performed At Once on admission and Daily AM afterward s [facility] Once on admission and Daily AM afterward s Once on admission and Daily AM afterwards Performing Organization Address City/State/Zipcode Phone Number [facility] [address] [place] [address] CENTER Magnesium (01/07/2019 6:01 AM CDT) Magnesium 2.2 1.6 - 2.6 mg/dL [facility] Specimen Blood Narrative Performed At Once on admission and Daily AM afterward s [facility] Once on admission and Daily AM afterward s Once on admission and Daily AM afterwards Performing Organization Address [facility] Phone Number [address] [address] [place] Prothrombin time/INR (01/06/2019 7:15 PM CDT) Protime 11.4 (L) 11.9 - 14.2 seconds [facility] INR 0.9 <=5.9 [facility] Specimen Blood Narrative Performed At Effective 09/23/2018: PT Reference Range [facility] Change New: 11.9-14.2Previous: 11.7-14.7 RECOMMENDED COUMADIN/WARFARIN INR THERAPY RANGES STANDARD DOSE: 2.0-3.0Includes: PROPHYLAXIS for venous thrombosis, systemic embolization; TREATMENT for venous thrombosis and/or pulmonary embolus. HIGH RISK: Target INR is 2.5-3.5 for patients wiht mechanical heart valves. Performing Organization Address [facility] Center[facility] Phone Number [address] [address] [place] Hemoglobin A1c (01/06/2019 7:15 PM CDT) Hemoglobin A1C 11.9 (H) 4.3 - 6.1 % [facility] Specimen Blood Performing Organization Address [facility] Centercode Phone Number [address] [address] [place] Hepatic function panel (01/06/2019 7:15 PM CDT) Protein, Total 6.3Comment: Specimen 6.0 - 8.3 gm/dL [facility] slightly hemolyzed [facility] Albumin 2.8 (L)Comment: Specimen 3.5 - 5.0 g/dL [facility] slightly hemolyzed [facility] Total Bilirubin 0.4Comment: Specimen 0.2 - 1.2 mg/dL [facility] slightly hemolyzed [facility] Bilirubin, Direct 0.1Comment: Specimen 0.1 - 0.5 mg/dL [facility] slightly hemolyzed [facility] Alkaline Phosphatase 104 40 - 150 U/L [facility] AST 29Comment: Specimen 5 - 34 U/L [facility] slightly hemolyzed [facility] ALT 23Comment: Specimen 6 - 55 U/L [facility] slightly hemolyzed [facility] Specimen Blood Narrative Performed At Specimen moderately lipemic [facility] Performing Organization Address City/State/Zipcode Phone Number [facility] [address] [place] [address] CENTER after 11/26/2018 Advance Directives For more information, please contact:[address] [phone] Code Status Date Activated Date Inactivated Comments Full Code 01/06/2019 5:51 PM 01/11/2019 7:13 PM This code status was determined by: Patient
--- OUTSIDE RECORDS SUMMARY | 2019-11-27 07:58 | XMS REPORT | Continuity of Care Document ---
:1965 Author Organization [facility] t Address [address] [place] [address] Care Team Providers Name Role Phone Attjalen [...] Clinician Tanvir Hammond MD, Anthony Attending Clinician [phone] Erica Garcia Attending Clinician Odette Chavis MD Attending Clinician NOBLE CRAWFORD Attending Clinician Unavailable CHANDANA Admitting Clinician Unavailable NOBLE CRAWFORD Admitting Clinician Unavailable Payers Payer Name Policy Type Policy Number Effective Date Expiration Date [facility] xxxxxxxxxxxx 2019 [place] CHOICE 00:00:00 [facility] /29/2019-Pr esentExchange Problems Condition Condition Condition Status Onset Resolution Last Treating Co mments Source Name Details Category Date Date Treatment Clinician Date Diabetic Diabetic Disease Active [place] peripheral peripheral 2- Me thodi neuropathy neuropathy 00:00: st 00 Chronic Chronic Disease Active [place] kidney kidney 2-19 [facility] disease, disease, 00:00: st stage III stage III 00 (moderate) (moderate) Diarrhea, Diarrhea, Disease Active Ferdinand ston unspecifie unspecifie -19 Me thodi d d 00:00: st 00 Edema of Edema of Disease Active [place] left orbit left orbit 06-16 Me thodi 00:00: st 00 Hyperglyce Hyperglyce Disease Active H [facility] cristóbal cristóbal 2-15 Methodi 00:00: st [...] 00 Center Acute Acute Disease Active 2017-04 [place] renal renal 1-23 Method[facility] failure failure 00:00: st 00 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 00:00: st 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 0-13 Methodi 00:00: st 00 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 [place] 0-13 Methodi 00:00: st 00 Occlusion Occlusion [...] disease disease 00:00: st involving involving 00 [place] 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 [...] Date Date Clinician Ketorola Propensi Active Hallucinatio [facility] ty to ns 2-15 Methodi [...] s to drug Codeine Propensi Active Hives [place] ty to 8-06 Methodi adverse 00:00: st reaction 00 s to drug Hydrocod Propensi Active Hives, [place] one-Acet ty to Itching 2-28 Methodi aminophe adverse 00:00: st n reaction 00 s to drug Family History Family Member Diagnosis Comments Start Date Stop Date Source Natural father No Known Problem [facility] Natural father Diabetes [place] [facility]ist Natural mother Heart disease [facility] Natural mother Hypertension [facility] Natural mother Diabetes [place] [facility] Natural mother Hypertension [place] [facility] [facility] Social History Social Habit Start Date Stop Date Quantity Comments Source History SDHI [facility] Alcohol Std Drinks [facility] History SDHI [facility] - Alcohol Binge Medical [facility] History of tobacco Cigarette Smoker [place] use [facility] [facility] Sex Assigned At [place] [facility] Cigarettes smoked 2019-07-06 2019-07-06 [place] current (pack per 00:00:00 00:00:[address] day) - Reported Alcohol intake 2019-07-06 2019-07-06 Current [place] 00:00:00 00:00:00 non-drinker of [facility] alcohol (finding) History SDHI 2019-01-06 2019-01-[address] [facility] - Alcohol Frequency 00:00:00 00:00:00 [facility] Tobacco Comment 2019-01-06 2019-01-06 [facility]00 day, started Medical [facility] again 3 years ago Smoking Status [...] for 30 days. brimonidine 2019-2019- No 1[drp] [id number] Administer [place] (ALPHAGAN) -15 08- [id number] 1 drop Method[facility] 0.15 % 00:00: 23:[address] ophthalmic 00 :00 left eye solution every 8 (eight) hours for 30 days. calcium 2019-2019- No 667mg [id number] Take 1 [place]a acetate,tate -20 - [id number] capsule [facility]i sphat bind, 00:00: 23:59 3D ([address] (PHOSLO) 00 :00 total) by 667 mg mouth 3 capsule (three) times a day with meals for 30 days. dorzolamide 2019-2019- No 1[drp] Q.5D Administer [place] -timolol 07-15 1 drop [facility] (COSOPT) 00:00: [...] latanoprost 2019- 2020- No 1[drp] QD Administer [place] (XALATAN) 07-15 1 drop Method[facility] 0.005 % [...] 30 days. methocarbam 2019- 2020- No 500mg [id number] Take 1 [place] oL 07-15 [id number] tablet Method i (ROBAXIN) 00:00: 23:59 3D ([address] 500 MG 00 :00 total) by tablet mouth 3 (three) times a day as needed for muscle spasms for up to 30 days. nystatin 2019-0 2020- No Q.5D Apply [place] (MYCOSTATIN 07-15 topically Me thodi ) 100,000 00:00: 23:59 2 (two) st unit/gram 00 :00 times a powder day for 30 days. polyethylen 2019- 2020- No 17g QD Take 17 g [place] e glycol 07-15 by mouth Method i (MIRALAX) 00:00: 23:[address] 17 gram 00 :00 30 days. packet riFAXimin 2019- 2020- No 550mg Q.5D Take 1 [place] (XIFAXAN) 07-15 tablet Methodi 550 mg 00:00: 23:59 ([address] tablet 00 :00 total) by mouth 2 (two) times a day for 30 days. sevelamer 2019-0 2020- No 800mg [id number] Take 1 [place] (RENVELA) 07-15 [id number] tablet M ethodi 800 mg 00:00: 23:59 [...] mg tablet 18:07: daily. Medica l 00 [place] simvastatin 2019-0 Yes 80mg QD Take [address] (ZOCOR) 80 9-11 by mouth [facility] - MG tablet 18:07: daily. Medica l 00 [place] spironolact 2019-0 Yes 25mg QD Take 25 [...] MG tablet 18:06: daily. Medica l 59 [place] gabapentin Yes 300mg QD Take [address] (NEURONTIN) 9-11 mg by [facility] - 300 MG 18:06: mouth Medical capsule 59 daily. [place] ergocalcife 2017-04- No [id number] Q7D Take 1 [place] rol 06-05 [...] (ZOCOR) 80 0-24 03-20 by mouth Meth suis MG tablet 00:00: 00:[address] 00 :00 Vital Signs Vital Name Observation Time Observation Value Comments Source Systolic blood 2019-07-16 12:27:46 160 mm[Hg] Ismaelto n [facility] pressure Diastolic blood 2019-07-16 12:27:46 80 mm[Hg] Anthony on [facility] [facility] pressure Heart rate 2019-07-16 12:27:46 64 /min [place] [facility] Body temperature 2019-07-16 12:27:46 36.61 Yesi [place] [facility] Respiratory rate 2019-07-16 12:27:46 18 /min [place] [facility] Oxygen saturation in 2019-07-16 12:27:46 100 /min [facility] by Pulse oximetry Body height 2019-07-06 13:11:00 170.2 cm [place] [facility] Body weight 2019-07-06 13:11:00 96.163 kg [place] [facility] BMI 2019-07-06 13:11:00 33.20 kg/m2 [facility] Systolic blood 2019-01-11 12:30:00 136 mm[Hg] [facility] Diastolic blood 2019-01-11 12:30:00 71 mm[Hg] [facility] S [facility] Heart rate 2019-01-11 12:30:00 80 /min [facility] Body temperature 2019-01-11 12:30:00 36 Yesi [facility] Respiratory rate 2019-01-11 12:30:00 18 /min [facility] Oxygen saturation in 2019-01-11 12:30:00 95 /min [facility] - Arterial blood by Medical Ce nter Pulse oximetry Body height 2019-01-06 17:30:00 170.2 cm [facility] Body weight Measured 2019-01-06 17:30:00 102.967 kg [facility] BMI 2019-01-06 17:30:00 35.55 kg/m2 [facility] Procedures Procedure Date / Time Performing Clinician [...] METABOLIC PANEL 2019-07-14 05:10:00 Angelo Yunier hernández [employer] [facility] [place] MAGNESIUM LEVEL 2019-07-14 05:10:00 Angelo Yunier Lefty [place] ethodist Wiley PHOSPHORUS LEVEL 2019-07-14 05:10:00 Angelo Yunier Olea [employer] [facility] Wiley HC COMPLETE BLD COUNT 2019-07-14 05:10:00 Tani StephensHenry hernández [facility] [facility] W/AUTO DIFF Wiley ESTIMATED GFR 2019-07-14 05:10:00 Angelo Yunier Lefty [place] ethodist Wiley POC GLUCOSE 2019-07-14 02:44:00 [place] POC GLUCOSE 2019-07-13 21:27:00 [place] POC GLUCOSE 2019-07-13 16:22:00 [place] POC GLUCOSE 2019-07-13 13:08:00 [place] [facility] POC GLUCOSE 2019-07-13 07:55:00 [place] BASIC METABOLIC PANEL 2019-07-13 03:25:00 Angelo Yunier hernández [employer] [facility] [place] MAGNESIUM LEVEL 2019-07-13 03:25:00 Angelo Yunier Olea [facility] ethodist Wiley PHOSPHORUS LEVEL 2019-07-13 03:25:00 Yunier Stephens Wiley ESTIMATED GFR 2019-07-13 03:25:00 Angelo Yunier Lefty [place] ethodist Wiley POC GLUCOSE 2019-07-12 21:00:00 [place] Ellingtonist POC GLUCOSE 2019-07-12 17:06:00 [place] [facility] [facility] POC GLUCOSE 2019-07-12 16:06:00 [place] Ellingtonist POC GLUCOSE 2019-07-12 14:25:00 [place] POC GLUCOSE 2019-07-12 12:07:00 [place] HEMODIALYSIS 2019-07-12 08:45:38 Angelo Yunier [place] ethodist [facility] POC GLUCOSE 2019-07-12 08:44:00 [place] BASIC METABOLIC PANEL 2019-07-12 04:00:00 Yunier Stephens [employer] [facility] [place] MAGNESIUM LEVEL 2019-07-12 04:00:00 Yunier Stephens ethodist Wiley PHOSPHORUS LEVEL 2019-07-12 04:00:00 Yunier Stephens Wliey ESTIMATED GFR 2019-07-12 04:00:00 Yunier Stephens ethodist [facility] POC GLUCOSE 2019-07-11 21:23:00 [place] POC GLUCOSE 2019-07-11 16:56:00 [place] POC GLUCOSE 2019-07-11 16:31:00 [place] POC GLUCOSE 2019-07-11 11:23:[address] CHEST WO CONTRAST 2019-07-11 09:40:15 Raj Moss Yoandy POC GLUCOSE 2019-07-11 08:29:00 [place] HC COMPLETE BLD COUNT 2019-07-11 05:45:00 Yunier Stephens [facility] [facility] W/AUTO DIFF [place] BASIC METABOLIC PANEL 2019-07-11 04:00:00 Yunier Stephens [facility] [facility] [place] MAGNESIUM LEVEL 2019-07-11 04:00:00 Yunier Stephens ethodist Wiley PHOSPHORUS LEVEL 2019-07-11 04:00:00 Yunier Stephens Wiley ESTIMATED GFR 2019-07-11 04:00:00 Yunier Stephens ethodist Wiley POC GLUCOSE 2019-07-11 00:11:00 [place] POC GLUCOSE 2019-07-10 22:12:00 [place] POC GLUCOSE 2019-07-10 17:24:00 [place] BASIC METABOLIC PANEL 2019-07-10 13:40:00 Yunier Stephens [facility] [facility] [place] MAGNESIUM LEVEL 2019-07-10 13:40:00 Yunier Stephens [...] HEPATIC FUNCTION PANEL 2019-07-08 04:00:00 Yris Lagos [facility] BASIC METABOLIC PANEL 2019-07-08 04:00:00 Yunier Stephens [employer] [facility] MAGNESIUM LEVEL 2019-07-08 04:00:00 Yunier Stephens ethodist Wiley PHOSPHORUS LEVEL 2019-07-08 04:00:00 Yunier Stephens [facility] [facility] Wiley ESTIMATED GFR 2019-07-08 04:00:00 Yris Lagos Me thodist POC GLUCOSE 2019-07-07 21:30:00 [place] HYPERSENSITIVITY 2019-07-07 17:30:00 [facility] Met hodist PNEUMONITIS II Yoandy POC GLUCOSE 2019-07-07 17:19:00 [place] IMMUNOGLOBULIN G 2019-07-07 16:11:00 [facility] Met hodist Yoandy ANTI-NEUTROPHILIC 2019-07-07 14:30:00 Yunier Stephens [facility] [facility] CYTOPLASMIC ABS PANEL Wiley SS-B ANTIBODY 2019-07-07 14:30:00 [facility] Meth odist Yoandy CENTROMERE ANTIBODY 2019-07-07 14:30:00 [facility] [employer] Witness Yoandy DNA AB SCREEN 2019-07-07 14:30:00 Yunier Stephens ethodist Wiley POC GLUCOSE 2019-07-07 12:08:00 [place] [facility] POC GLUCOSE 2019-07-07 07:41:00 [place] [facility] HEPATIC FUNCTION PANEL 2019-07-07 04:00:00 Yris Lagos [facility] [facility] BASIC METABOLIC PANEL 2019-07-07 04:00:00 Yunier Stephens [facility] Wiley MAGNESIUM LEVEL 2019-07-07 04:00:00 Yunier Stephens ethodist Wiley PHOSPHORUS LEVEL 2019-07-07 04:00:00 Yunier Stephens [facility] Wiley ESTIMATED GFR 2019-07-07 04:00:00 Yris Lagos [...] CONTRAST, 2019-07-05 09:25:06 [place] W DOPPLER ([id number]) POC GLUCOSE 2019-07-05 08:17:00 [place] BASIC METABOLIC PANEL 2019-07-05 05:14:00 Yunier Stephens [facility] [facility] [place] MAGNESIUM LEVEL 2019-07-05 05:14:00 Yunier Stephens [...] BASIC METABOLIC PANEL 2019-07-04 05:16:00 Yunier Stephens [facility] [facility] [place] MAGNESIUM LEVEL 2019-07-04 05:16:00 Yunier Stephens ethodist Wiley PHOSPHORUS LEVEL 2019-07-04 05:16:00 Yunier Stephens Wiley ESTIMATED GFR 2019-07-04 05:16:00 Yunier Stephens ethodist Wiley POC GLUCOSE 2019-07-03 21:52:00 [place] POC GLUCOSE 2019-07-03 16:16:00 [place] POC GLUCOSE 2019-07-03 12:31:00 [place] POC GLUCOSE 2019-07-03 11:50:00 [place] POC GLUCOSE 2019-07-03 07:48:00 [place] BASIC METABOLIC PANEL 2019-07-03 04:00:00 Yunier Stephens [facility] [facility] [place] MAGNESIUM LEVEL 2019-07-03 04:00:00 Yunier Stephens ethodist Wiley PHOSPHORUS LEVEL 2019-07-03 04:00:00 Yunier Stephens Wiley VANCOMYCIN LEVEL, RANDOM 2019-07-03 04:00:00 [place] ESTIMATED GFR 2019-07-03 04:00:00 Yunier Stephens ethodist Wiley POC GLUCOSE 2019-07-02 21:29:00 [place] POC GLUCOSE 2019-07-02 18:48:00 [place] BASIC METABOLIC PANEL 2019-07-02 16:05:00 Yunier Stephens [facility] [facility] [place] ESTIMATED GFR 2019-07-02 16:05:00 Yunier Stephens ethodist Wiley POC GLUCOSE 2019-07-02 16:03:00 [place] VENIPUNC NEED PHYS SKILL,DX 2019-07-02 14:59:18 Kaykay Rain OR RX POC GLUCOSE 2019-07-02 11:52:00 [place] POC GLUCOSE 2019-07-02 08:44:00 [place] VANCOMYCIN LEVEL, RANDOM 2019-07-02 04:00:00 [place] BASIC METABOLIC PANEL 2019-07-02 04:00:00 Yunier Stephens [facility] [facility] [place] MAGNESIUM LEVEL 2019-07-02 04:00:00 Yunier Stephens ethodist Wiley PHOSPHORUS LEVEL 2019-07-02 04:00:00 Yunier Stephens Wiley ESTIMATED GFR 2019-07-02 04:00:00 [place] POC GLUCOSE 2019-07-01 21:39:00 [place] POC GLUCOSE 2019-07-01 17:04:00 [place] [facility] VANCOMYCIN LEVEL, TROUGH 2019-07-01 14:30:00 [place] [facility] POC GLUCOSE 2019-07-01 12:20:00 [place] [facility] POC GLUCOSE 2019-07-01 08:33:00 [place] [facility] POC GLUCOSE 2019-07-01 04:13:00 [place] BASIC METABOLIC PANEL 2019-07-01 04:00:00 Yunier Stephens [facility] [place] MAGNESIUM LEVEL 2019-07-01 04:00:00 Yunier Stephens ethodist Wiley PHOSPHORUS LEVEL 2019-07-01 04:00:00 Yunier Stephens Wiley HEPATIC FUNCTION PANEL 2019-07-01 04:00:00 Yris Lagos ESTIMATED GFR 2019-07-01 04:00:00 Yunier Stephens ethodist Wiley POC GLUCOSE 2019-06-30 23:36:00 [place] [facility] POC GLUCOSE 2019-06-30 21:09:00 [place] [facility] POC GLUCOSE 2019-06-30 17:15:00 [place] POC GLUCOSE 2019-06-30 14:40:00 [place] Ellingtonist POC GLUCOSE 2019-06-30 11:58:00 [place] SURGICAL PATHOLOGY REQUEST 2019-06-30 11:36:00 [place] POC GLUCOSE 2019-06-30 10:00:00 [place] IR TRANSJUGULAR LIVER 2019-06-30 09:39:34 Yris Lagos BIOPSY BASIC METABOLIC PANEL 2019-06-30 04:03:00 Yunier Stephens [facility] [facility] [place] MAGNESIUM LEVEL 2019-06-30 04:03:00 Yunier Stephens ethodist Wiley PHOSPHORUS LEVEL 2019-06-30 04:03:00 Yunier Stephens [facility] Wiley HEPATIC FUNCTION PANEL 2019-06-30 04:03:00 Yris [...] [place] ESTIMATED GFR 2019-06-29 04:54:00 Yris Lagos De thodist POC GLUCOSE 2019-06-28 20:33:00 [place] POC GLUCOSE 2019-06-28 16:06:00 [place] POC GLUCOSE 2019-06-28 12:29:00 [place] HEPATIC FUNCTION PANEL 2019-06-28 12:23:00 Yris Lagos ECG 12-LEAD 2019-06-28 09:41:10 [place] POC GLUCOSE 2019-06-28 09:14:00 [place] TROPONIN 2019-06-28 09:13:00 [place] HEPATIC FUNCTION PANEL 2019-06-28 09:13:00 [place] BASIC METABOLIC PANEL 2019-06-28 05:22:00 Angelo Yunier hernández [facility] [place] MAGNESIUM LEVEL 2019-06-28 05:22:00 Angelo Yunier Olea [facility] PHOSPHORUS LEVEL 2019-06-28 05:22:00 Angelo Yunier Olea [facility] [facility] Wiley VANCOMYCIN LEVEL, RANDOM 2019-06-28 05:22:00 [place] ESTIMATED GFR 2019-06-28 05:22:00 [place] POC GLUCOSE 2019-06-27 21:03:00 [place] POC GLUCOSE 2019-06-27 17:04:00 [place] POC GLUCOSE 2019-06-27 14:07:00 [place] POC GLUCOSE 2019-06-27 11:57:00 [place] POC GLUCOSE 2019-06-27 08:26:00 [place] ECG 12-LEAD 2019-06-27 08:13:50 Usha Oquendo odist BASIC METABOLIC PANEL 2019-06-27 05:14:00 Angelo Yunier hernández [facility] [facility] [place] MAGNESIUM LEVEL 2019-06-27 05:14:00 Angelo Yunier [place] ethodist Wiley PHOSPHORUS LEVEL 2019-06-27 05:14:00 AngeloYunier [facility] Wiley VANCOMYCIN LEVEL, RANDOM 2019-06-27 05:14:00 [place] ESTIMATED GFR 2019-06-27 05:14:00 [place] POC GLUCOSE 2019-06-26 21:21:00 [place] POC GLUCOSE 2019-06-26 19:41:00 [place] POC GLUCOSE 2019-06-26 19:12:00 [place] ULTRAFILTRATION 2019-06-26 13:39:23 Andrews Wright De thodist POC GLUCOSE 2019-06-26 12:05:00 [place] POC GLUCOSE 2019-06-26 08:54:00 [place] BASIC METABOLIC PANEL 2019-06-26 06:25:00 Yunier Stephens Wiley MAGNESIUM LEVEL 2019-06-26 06:25:00 Yunier Stephens ethodist Wiley PHOSPHORUS LEVEL 2019-06-26 06:25:00 Yunier Stephens Wiley HC COMPLETE BLD COUNT 2019-06-26 06:25:00 Yunier Stephens [facility] W/AUTO DIFF [place] VANCOMYCIN LEVEL, RANDOM 2019-06-26 06:25:00 [place] ESTIMATED GFR 2019-06-26 06:25:00 [place] POC GLUCOSE 2019-06-25 23:39:00 [place] HEMODIALYSIS 2019-06-25 21:44:30 Andrews Wright De [facility]odist POC GLUCOSE 2019-06-25 21:14:00 [place] BASIC METABOLIC PANEL 2019-06-25 18:45:00 Yunier Stephens [facility] [facility] Wiley PHOSPHORUS LEVEL 2019-06-25 18:45:00 Yunier Stephens [...] [place] BASIC METABOLIC PANEL 2019-06-24 04:00:00 StephensYunier [facility] [facility] Wiley MAGNESIUM LEVEL 2019-06-24 04:00:00 Angelo Yunier [place] ethodist Wiley PHOSPHORUS LEVEL 2019-06-24 04:00:00 Angelo Yunier Olea [employer] [facility] Wiley HEPATIC FUNCTION PANEL 2019-06-24 04:00:00 Yris Lagos [facility] HC COMPLETE BLD COUNT 2019-06-24 04:00:00 Angelo Yunier hernández [facility] [facility] W/AUTO DIFF [place] ESTIMATED GFR 2019-06-24 04:00:00 [...] HEPATIC FUNCTION PANEL 2019-06-20 04:00:00 Yris Lagos [facility] [facility] BASIC METABOLIC PANEL 2019-06-20 04:00:00 Yunier Stephens [facility] [facility] Wiley MAGNESIUM LEVEL 2019-06-20 04:00:00 Yunier Stephens ethodist Wiley PHOSPHORUS LEVEL 2019-06-20 04:00:00 Yunier Stephens [facility] Wiley ESTIMATED GFR 2019-06-20 04:00:00 Yris Lagos thodist POC GLUCOSE 2019-06-19 21:31:00 [place] CREATININE LEVEL, URINE, 2019-06-19 19:06:00 Javan Mcdowell [facility] [facility] RANDOM PROTEIN, URINE, RANDOM 2019-06-19 19:06:00 Javan Mcdowell [facility] [facility] POC GLUCOSE 2019-06-19 16:08:00 [place] POC GLUCOSE 2019-06-19 12:34:00 [place] [facility] POC GLUCOSE 2019-06-19 07:42:00 [place] ANTI MITOCHONDRIA SCREEN 2019-06-19 00:00:00 Yris Lagos [facility] HEPATIC FUNCTION PANEL 2019-06-19 00:00:00 Yris Lagos [facility] BASIC METABOLIC PANEL 2019-06-19 00:00:00 Yunier Stephens [facility] [facility] Wiley MAGNESIUM LEVEL 2019-06-19 00:00:00 Yunier Stephens ethodist Wiley PHOSPHORUS LEVEL 2019-06-19 00:00:00 Yunier Stephens [facility] [facility] Wiley ESTIMATED GFR 2019-06-19 00:00:00 Yunier Stephens [...] HEPATITIS B SURFACE AB, 2019-06-18 05:00:00 Yris Lagso QUANTITATIVE AMMONIA LEVEL 2019-06-18 05:00:00 Yris Lagos [...] ABDOMINAL DOPPLER 2019-06-17 16:48:35 Demond Yris torres [employer] [facility] US RENAL 2019-06-17 14:26:40 Usha Oquendo Meth odist POC GLUCOSE 2019-06-17 11:38:00 [place] POC GLUCOSE 2019-06-17 08:22:00 [place] CELIAC DISEASE REFLEXIVE 2019-06-17 04:53:00 Sharon Loving CASCADE BASIC METABOLIC PANEL 2019-06-17 04:53:00 Yunier Stephens [employer] Wiley MAGNESIUM LEVEL 2019-06-17 04:53:00 Yunier Stephens [...] HEAD WO CONTRAST 2019-06-14 20:31:08 [place] [facility] [facility] POC GLUCOSE 2019-06-14 16:31:00 [place] POC [...] COMPLETE BLD COUNT 2019-06-12 19:49:00 Guillermo Jeffery [facility] W/AUTO DIFF COMPREHENSIVE METABOLIC 2019-06-12 19:49:00 Guillermo [...] STRIP - SCAN 2019-01-12 15:42:05 Provider, Ronit [facility] POCT-GLUCOSE METER 2019-01-11 12:15:00 Julia Chavis [facility] BASIC METABOLIC PANEL (7) 2019-01-11 05:03:00 Joey Garcia [facility] CBC W/PLT COUNT & AUTO 2019-01-11 05:03:[address] [facility] POCT-GLUCOSE METER 2019-01-10 20:31:00 Joey Garcia [facility] POCT-GLUCOSE METER 2019-01-10 17:28:00 JoseJoey escobedo Erica [facility] CT BRAIN WITHOUT IV 2019-01-10 11:31:[address] [facility] CT CHEST WITHOUT IV 2019-01-10 11:31:00 JoseJoey escobedo Erica [facility] D-DIMER 2019-01-10 11:00:00 [facility] Erica [facility] XR CHEST 1 VIEW 2019-01-10 07:16:00 [facility] ECG 12-LEAD 2019-01-10 06:30:43 Ryan [facility] BASIC METABOLIC PANEL (7) 2019-01-10 06:11:00 Darnell Renner [facility] B-TYPE NATRIURETIC FACTOR 2019-01-10 06:11:00 Micheal Abdullahi [facility] (BNP) [facility] TROPONIN I 2019-01-10 06:11:00 Jose Joey Erica [facility] CBC W/PLT COUNT & AUTO 2019-01-10 06:11:00 Kecia Logan [facility] ECG 12-LEAD 2019-01-10 06:01:23 Unknown, Hl7 Doctor [facility] TROPONIN I 2019-01-09 23:14:00 Jose Joey Erica [facility] POCT-GLUCOSE METER 2019-01-09 21:16:00 Tanvir Hammond [facility] TROPONIN I 2019-01-09 18:27:00 Jose Joey Erica [facility] POCT-GLUCOSE METER 2019-01-09 18:03:00 Marcelino Jones [facility]SE [facility] 2019-01-09 12:10:00 Marcelino Jones [facility] S [facility] POCT-GLUCOSE METER 2019-01-09 08:08:00 Hirzallah, [facility] APTT 2019-01-09 04:35:00 [facility] BASIC METABOLIC PANEL (7) 2019-01-09 04:35:00 NathalyvladimirGermanzandra Apple [facility] CBC W/PLT COUNT & AUTO 2019-01-09 04:35:00 Kecia Logan [facility] DIFFERENTIAL [facility] POCT-GLUCOSE METER 2019-01-08 22:07:00 RowenaHeavenshawneeerica [facility] ECHOCARDIOGRAM REPORT - 2019-01-08 21:20:36 ProviderRonit [facility] POCT-GLUCOSE METER 2019-01-08 17:02:00 RowenaHeavenshawneeerica [facility] APTT 2019-01-08 16:03:00 [facility] BASIC METABOLIC PANEL (7) 2019-01-08 16:03:00 [facility] Darnell Apple [facility] PT/APTT 2019-01-08 16:03:00 [facility] POCT-GLUCOSE METER 2019-01-08 11:49:00 [facility] POCT-GLUCOSE METER 2019-01-08 07:33:00 RowenaHeavenshawneeerica [facility] APTT 2019-01-08 04:27:00 Agueda Cruz [facility] CBC W/PLT COUNT & AUTO 2019-01-08 04:22:00 Kecia Logan [facility] S [facility] DIFFERENTIAL [facility] POCT-GLUCOSE METER 2019-01-07 22:08:00 [facility] POCT-GLUCOSE METER 2019-01-07 18:41:00 [facility] APTT 2019-01-07 18:40:00 Agueda Cruz [facility] ECHO W CONTRAST & DOPPLER 2019-01-07 16:16:26 Ozzy Bey [facility] POCT-GLUCOSE METER 2019-01-07 14:25:00 [facility] 12-LEAD 2019-01-07 13:40:29 [facility] TROPONIN I 2019-01-07 13:21:00 [facility] POCT-GLUCOSE METER 2019-01-07 12:59:00 Rowena [facility] POCT-GLUCOSE METER 2019-01-07 11:58:00 [facility] APTT 2019-01-07 11:53:00 Anthony [facility] POCT-GLUCOSE METER 2019-01-07 11:03:00 [facility] [facility] POCT-GLUCOSE METER 2019-01-07 10:19:00 [facility] POCT-GLUCOSE METER 2019-01-07 09:09:00 [facility] POCT-GLUCOSE METER 2019-01-07 08:04:00 [facility] POCT-GLUCOSE METER 2019-01-07 06:56:00 [facility] BASIC METABOLIC PANEL (7) 2019-01-07 06:01:00 Kecia Logan [facility] MAGNESIUM 2019-01-07 06:01:00 Kecia Logan [facility] PHOSPHORUS 2019-01-07 06:01:00 [facility] 2019-01-07 06:01:00 [facility] APTT 2019-01-07 06:01:00 Agueda Cruz [facility] CBC W/PLT COUNT & AUTO 2019-01-07 06:01:00 Kecia Logan [facility] POCT-GLUCOSE METER 2019-01-07 05:59:00 [facility] POCT-GLUCOSE METER 2019-01-07 04:55:00 [facility] POCT-GLUCOSE METER 2019-01-07 04:04:00 [facility] POCT-GLUCOSE METER 2019-01-07 02:56:00 [facility] POCT-GLUCOSE METER 2019-01-07 01:56:00 [facility] POCT-GLUCOSE METER 2019-01-07 01:02:00 [facility] POCT-GLUCOSE METER 2019-01-07 00:13:00 [facility] 2019-01-06 23:59:00 Anthony [facility] B-TYPE NATRIURETIC FACTOR 2019-01-06 23:59:[address] [facility] (BNP) [facility] APTT 2019-01-06 23:59:00 Anthony [facility] POCT-GLUCOSE METER 2019-01-06 23:09:00 [facility] 2019-01-06 22:50:00 Anthony [facility] PORTABLE/BEDSIDE [facility] Center ECG 12-LEAD 2019-01-06 22:10:07 Anthony [facility] POCT-GLUCOSE METER 2019-01-06 22:05:[address] BRAIN WITHOUT IV 2019-01-06 21:23:[address] [facility] ECG 12-LEAD 2019-01-06 20:24:31 [facility] HEPATIC FUNCTION PANEL 2019-01-06 19:15:00 Doreen [facility] PROTHROMBIN TIME/INR 2019-01-06 19:15:00 [facility] 2019-01-06 19:15:00 [facility] TROPONIN I 2019-01-06 19:15:00 [facility] HEMOGLOBIN A1C 2019-01-06 19:15:00 [facility] BASIC METABOLIC PANEL (7) 2019-01-06 19:15:00 Genny Stephens CH I [facility] CBC W/PLT COUNT & AUTO 2019-01-06 19:15:00 Doreen [facility] POCT-GLUCOSE METER 2019-01-06 17:46:00 Jamel Crawford [facility] Plan of Care Planned Activity Planned Date Details Comments Source Future Scheduled 2021-06-30 DIABETIC RETINAL EYE [place] [facility] 00:00:00 EXAM [code = DIABETIC RETINAL EYE EXAM] Future Scheduled 2019-11-27 INFLUENZA VACCINE [place] [facility] 00:00:00 [code = INFLUENZA VACCINE] Future Scheduled 2017-07-30 COLONOSCOPY SCREENING [place] [facility] 00:00:00 [code = COLONOSCOPY SCREENING] Future Scheduled 2017-07-30 SHINGLES VACCINES [place] [facility] 00:00:00 (#1) [code = SHINGLES VACCINES (#1)] Future Scheduled 1977-07-30 DIABETIC FOOT EXAM [place] [facility] Test 00:00:00 [code = DIABETIC FOOT EXAM] Encounters Start End Encounter Admission Attending Care Care Encounter Source Date/Time Date/Time Type Type Clinicians Facility Department ID 2019-10-01 2019-10-01 Orders Doctor ZHENG [id number] 00:00:00 00:00:00 Only UnassignedPRISCILA [place] [id number] [id number] 2019-09-21 2019-09-21 Orders Doctor ZHENG [id number] 00:00:00 00:00:00 Only UnassignedPRISCILA [place]13.10 [place] [id number] [id number] 2019-06-12 2019-07-16 Inpatient [place] [id number] [place] 00:00:00 00:00:00 [place] [address] 2019-06-22 2019-06-22 Patient Doctor MARCE [id number] 00:00:00 00:00:00 Secure Msg UnassignedPRISCILA 350.1.13.10 [place] [facility] 4.2.7.2.686 [id number] 2019-06-14 2019-06-14 Telephone MARCE Rich [id number] 00:00:00 00:00:00 Yvette Villavicencio PR[place]IL[place] 350.1.13.10 [place] [id number] 2019-06-14 2019-06-14 Telephone Ceci, [facility] [id number] 00:00:00 00:00:00 [facility] 350.1.13.10 [place] 4.2.7.2.686 Professio [id number] nal 0[address] One 2019-06-03 2019-06-03 Telephone Ceci, [facility] [id number] 00:00:00 00:00:00 [facility] 350.1.13.10 [place] 4.2.7.2.686 Professio [id number] nal 044 [address] One 2019-05-26 2019-05-26 Office Ceci, [facility] [id number] 07:34:38 09:02:52 Visit [facility] 350.1.13.10 [place] 4.2.7.2.686 Professio [id number] nal 044 Office [address] One Results Test Description Test Time Test Comments Results Result Comments Source POC glucose 2019-07-16 12:30:05 Test Item Value Reference Range Interpretation Comme nts POC glucose (test code = 253 mg/dL 65-99 H Ope rator Name: Ney Child 63730-8) ID: [id number] hartable: [facility] Notified practice architect Interpretation (test code = Abnormal 34975-0) [place] MethodistBasic metabolic bkywz7830-43-95 07:23:50 Test Item Value Reference Range Interpretation Comments Sodium (test code = 2951-2) 142 135- 148 mEq/L Potassium (test code = 2823-3) 4.3 3.5- 5.0 mEq/L Chloride (test code = 2075-0) 105 98- 112 mEq/L CO2 (test code = 8-9) 27 24- 31 mEq/L Anion gap (test code = 96436-8) 10@ANIO 7- 15 mEq/L BUN (test code = 3094-0) 46 mg/dL 6-20 H Creatinine (test code = 2160-0) 4.61 mg/dL 0.7-1.2 H Glucose (test code = 2345-7) 189 mg/dL 65-99 H Calcium (test code = 74335-9) 8.7 mg/dL 8.3-10.2 Lab Interpretation (test code = Abnormal 58402-4) [place] MethodistEstimated [id number] 07:23:50 Test Item Value Reference Range Interpretation Comments Estimated GFR (test 14 mL/min/1.73 m2 Ev rowe Units code = 5488) InterpretationG 1 >=90 Cora l or highG2 60-89 Mildly decrease dG3a 45-59 Mil dly to moderately decr wygyeS0o 30-44 Moderately to s everely decreasedG4 15-29 Severe ly decreasedG5 <15 Kidney jesica lureThe eGFR was calcul ated using the Chron ic Kidney Disease Epidemiology Collaboration ( CKD-EPI) equation. Interpretation is based on recommendati ons of the National Ki dney Foundation-Kidn ey Disease Outcome s Quality Initiat christa (NKF-KDOQI) pub lished in 2013. Lab Interpretation Abnormal (test code = 20070-0) [place] MethodistPhosphorus oltfe9809-93-62 07:23:49 Test Item Value Reference Range Interpretation Comments Phosphorus (test code = 2777-1) 4.3 mg/dL 2.4-4.5 [place] [facility] with platelet and zcntetkojypr3241-12-53 07:33:09 Test Item Value Reference Range Interpretation Comments WBC (test code = 28124-7) 6.44 4.50- 11.00 k/uL RBC (test code = 95478-8) 3.54 m/uL 4.4-6 L HGB (test code = 718-7) 10.6 g/dL 14-18 L HCT (test code = 4544-3) 31.2 % 41-51 L MCV (test code = 787-2) 88.1 fL 82-100 MCH (test code = 785-6) 29.9 pg 27-34 MCHC (test code = 786-4) 34.0 g/dL 31-37 RDW - SD (test code = 44.3 fL 37-55 91508-2) MPV (test code = 13529-6) 12.1 fL 8.8-13.2 Platelet count (test code 157 150- 400 k/uL = 07903-9) Nucleated RBC (test code 0.00 /100 WBC = 80163-6) Neutrophils (test code = 48.0 % 39-69 58736-6) Lymphocytes (test code = 32.5 % 25-45 70902-1) Monocytes (test code = 7.8 % 0-10 33933-7) Eosinophils (test code = 10.6 % 0-5 H 03542-2) Basophils (test code = 0.9 % 0-1 19695-6) Immature granulocytes 0.2 % 0-1 "Immat ure (test code = 28504-6) granul ocytes" (promyelocytes, myelocytes, metamyelocytes) Lab Interpretation (test Abnormal code = 57722-2) [place] MethodistMagnesium rxivo9557-14-35 07:17:31 Test Item Value Reference Range Interpretation Comments Magnesium (test code = 28524-7) 1.9 mg/dL 1.6-2.6 [place] MethodistHypersensitivity pneumonitis FW8558-44-84 10:14:04 Test Item Value Reference Interpretation Comments Range Aspergillus flavus None Detected None-Detected Testing includes (test code = 99100-0) antibo dies directed at Aspergillus flavus, Aspergi llus fumigatus #2, Aspergillus fum igatus #3, Saccharomon ospora viridis, and Thermoactinomyc es candidus. Aspergillus fumigatus None Detected None-Detected #2 (test code = 78731-9) Aspergillus fumigatus None Detected None-Detected #3 (test code = 06274-8) Saccharomonospora None Detected None-Detected viridis (test code = 16215-1) Thermoactinomyces None Detected None-Detected Performe d by SRINIVAS barlow (test code = Terry hummel,500 25211-9) [facility] [address] may .Wan Shidao management, Roberto Almaguer MD, Juanita jane. Director Thermoactinomyces NOT PERFORMED saccharii (test code = WITH THIS 82493-4) PANEL [place] MethodistHypersensitivity pneumonitis [id number] 01:53:46 Test Item Value Reference Interpretation Comments Range Aspergillus fumigatus None Detected None-Detected #1 (test code = 6808-0) Aspergillus fumigatus None Detected None-Detected #6 (test code = 6809-8) Aureobasidium None Detected None-Detected Testing incl udes pullulans (test code = antib odies directed 6810-6) at [facility] m pullulans, Aspergillus fum igatus #1, Aspergillus fumigatus #6, Micropolyspora faeni, [place] Serum an d Thermoactinomyc es vulgaris #1. [place] serum (test None Detected None-Detected code = 6733-0) Micropolyspora faeni None Detected None-Detected (test code = 6818-9) Thermoactinomyces None Detected None-Detected Performe d by SRINIVAS vulgaris #1 (test code Labor gilmer,500 = 6821-3) [facility],[place] [id number] www .Wan Shidao management, Roberto Almaguer MD, Juanita escobedo Director [facility] ResourcesCT Chest Wo Vfddedft7222-02-46 10:29:13Hm Interface, Radiology Results 07/11/2019 10:32 AM [...] of improvement of multifocal pneumonia. Recommend clinical correlation..[facility]-[id number] MethodistFerritin raqlz4142-17-33 14:34:03 Test Item Value Reference Range Interpretation Comments Ferritin level (test code = 2276-4) 214 ng/mL 30-400 [place] MethodistTotal iron binding nczgsbis3997-97-74 14:29:17 Test Item Value Reference Range Interpretation Comments Iron level (test code = 2498-4) 72 ug/dL 59-158 Iron binding capacity (test code = 298 ug/dL 365-877 4015-7) % Saturation (test code = 2502-3) 24.2 % 20-40 [place] YobanyistAnti-neutrophilic cytoplasmic Abs videl8844-84-23 15:24:12 Test Item Value Reference Range Interpretation Comments ANCA screen (test code = 3472) Negative Negative [place] Jehovah'S WitnessFL Modified Barium Vldltxo1473-31-24 15:02:46Hm Interface, Radiology Results - 07/09/2019 3:05 [...] refer to Speech Pathology report for further details.[facility]-[id number] and approved by resident assistant cna/fellow: Cely Babcock, Adriana Morales MD, personally reviewed the images and resident's/fellow's findings and agree with the final report.[place] MethodistDNA Ab xlbjbr9570-40-86 14:55:49 Test Item Value Reference Range Interpretation Comments DNA Ab screen (test code = 1297) Not Detected Not-Detected [place] MethodistHepatic function epurv4138-19-63 07:12:14 Test Item Value Reference Range Interpretation [...] g/dL 1-2 years 5.6-7.5 g/dL>3 years 6.0-8.0 g/xT71-662 6.3-8. 3 g/dL ALT (test code = 1742-6) 20 U/L 5-50 AST (test code = 1920-8) 20 U/L 10-50 Lab Interpretation (test Abnormal code = 32400-4) [place] MethodistImmunoglobulin [id number] 18:32:35 Test Item Value Reference Range Interpretation Comments IgG (test code = 2465-3) 1005 mg/dL 700-1600 [place] MethodistCentromere mqftupgu9588-20-94 18:10:06 Test Item Value Reference Range Interpretation Comments Centromere antibody <0.2 0.0- 0.9 AI (test code = 8068-9) Centromere antibody Negative AI Anti-kyrie tromere interp (test code = antibodi es are found 60016-3) in patients wit h systemic sclero sis (SSc or sclerod obinna), especially for those with limited cu taneous or CREST syndro me. Anti-centromere antibodies may also be found in patien ts with other rheumatic or connective tiss ue diseases. Lefty Meadowscl-70 iqzcudcg3244-18-79 18:10:06 Test Item Value Reference Range Interpretation Comments Scleroderma SCL-70 Ab <0.2 0.0- 0.9 AI (test code = 90514-4) Scl-70 antibody interp Negative AI Anti- Scl-70 (test code = 5268) (topoisom erase I) antibodies are found in patients with s ystemic sclerosis (SSc or scleroderma), a nd have been reported t o be predictive of d iffuse cutaneous invol vement. Anti-Scl-70 ant ibodies may also be pre sent in patients with s ystemic lupus erythemat osus (SLE). Lefty HaywoodistSS-A pqauhgtx5608-71-49 18:10:06 Test Item Value Reference Range Interpretation Comments Sjogren's SS-A <0.2 0.0- 0.9 AI antibody (test code = 13219-9) SS-A antibody interp Negative AI SS-A an tibody is (test code = 2235) sensitive for Sjogren's syndrome, but m ay also be positive with s ystemic lupus erythemat osus (SLE), and syst emic sclerosis. Lefty HaywoodistSS-B hhqqpqwr6455-35-76 18:10:05 Test Item Value Reference Range Interpretation Comments Sjogren's SS-B <0.2 0.0- 0.9 AI antibody (test code = 3001) SS-B antibody interp Negative AI SS-B/La antibody is seen (test code = 2237) in patien ts with Sjogren syndrome, but m ay also be positive with s ystemic lupus erythemat osus (SLE), and syst emic sclerosis. Lefty JohnsonCT Cardiac Hmabikbx0010-17-67 19:51:26Hm Interface, Radiology Results - 07/06/2019 7:54 [...] characterization with CT of the chest is recommendedHounew england [facility] MethodistCv cta coronary arteries w contrast and ffr if sumzgg5474-14-62 17:59:00Interface, Radiology Results In - 07/06/2019 5:59 PM CDT Nuclear Cardiology and Cardiac CT [address] [place] [address] CTA Coronary Arteries ReportPat.Name: PAOLA ENGEL Pat.ID: [id number] .Date: 07/06/2019 Refer.MD: MILTON ELLINGTON MDExam Time: 1:09:00 PMStudy Type:CTA Coronary Arteries Height: 67in Weight: 212lb BSA: 2.07 m2 Age: 4 1965,53Y Sex: MALE BP: 151/83 HR: 54 bpm Nuclear Tech:Samina Beyer RT(R)(CT)Pat. Stat.:Inpatient Tape Vol: 33.2, CPT - 4: CCTA w Thoracic Aorta (NonCongenital) [id number] Event ID:[id number] Order ID: [id number] Reason for Study:Pre-Op CABG, CAD History / Clinical:Coronary artery disease, Diabetes, Hyperlipidemia,Hypertension, S/P PCI 07/2007, Liver cirrhosis/Hepatitis CProcedures: CT Prospective(phases)Race: C SUMMARY: Technique: IV contrast was administered and sequential 0.[address] cutswere obtained through the chest using the Siemens Somatom Force CTscanner. Image post-processing consisting of multiplanar and 3Dreconstructions were performed using the [employer]va[employer] Holdingsworkstation. Interactive image viewing, volumetric display andanalysis were [...] refer to the separate radiology [facility] for anyaddi tional non-cardiovascular findings. STUDY QUALITYThe study quality is good.COMMENTSNone. FINDINGS: Signed 07/06/2019 05:59 Bethany Olvera MethodistSurgical pathology yvebwwm3519-86-72 13:32:02 Test Item Value Reference Range Interpretation Comments Case number (test code = [id number]) Surgical pathology See link below for report (test code = PDF Lab Report 2255) Result status (test code This is Final Report = [id number]) for [id number] Lefty JohnsonHIV Ag/Ab mvoddhrxdlh5893-09-13 09:39:34 Test Item Value Reference Range Interpretation Comments HIV Ag/Ab combination (test code Non-reactive Non-reactive = 5299) Lefty JohnsonProthrombin time with XSZ6743-10-13 07:38:02 Test Item Value Reference Range Interpretation Comments Prothrombin time (test 14.5 11.5- 14.5 sec code = 5902-2) INR (test code = 1.1 [facility] 9[facility]-6) Normalized Rati o (INR) is a therapeutic m onitoring tool for patien ts who are stable on oral anticoagulant t herapy. An INR of 2.0-3.0 is suggested for d eep vein thrombosis/pulm onary embolism. Lefty JohnsonC4 complement vltljtygh3985-26-48 07:25:14 Test Item Value Reference Range Interpretation Comments C4 complement (test code = 4498-2) 34 mg/dL 10-40 Lefty HaywoodistC3 complement rgeypuszc6455-66-65 07:25:14 Test Item Value Reference Range Interpretation Comments C3 complement (test code = 4485-9) 133 mg/dL 90-180 Lefty HaywoodistRheumatoid vlzgca6564-53-58 07:25:13 Test Item Value Reference Range Interpretation Comments Rheumatoid factor (test code = 03609-4) <10 0- 13 IU/mL [facility] ResourcesTransthoracic Echocardiogram Complete, (w Contrast, Strain and 3D if needed)2019-07-05 10:49:00Interface, Radiology Results In - 07/05/2019 10:49 AM CDT Echocardiography Report [address] [place] [address] Pat.Name: PAOLA ENGEL Pat.ID: [id number].Date: 07/05/2019 Refer.MD: MILTON ELLINGTON MDExam Time: 7:54:00 AM Study Type:Routine Echo Height: 67in Weight: 212lb BSA: 2.07 m2 Age: 4 1965,53Y Sex: MALE BP: 157/71 Sonogrphr: Audrey Bella RDCS, RVSPat. Stat.:Inpatient Room: [facility] Study Status:Final Echo Event ID:[id number] Order ID: [id number] Reason for Study:Chest pain, suspected cardi ac etiologyHistory / Clinical:Chest Pain, Diabetes, Hyperlipidemia, Hypertension,Cirrhosis, CT, Infectious Viral HepatitisProcedures: 2D Echo, Colorflow DopplerRace: [...] estimate PA systolic pressure. MEASUREMENTS: 2DParasternal Long Shushan Ao An 2 cm LVPWd 1.5 cm [...] Signed 07/05/2019 10:49 Bethany Rain MethodistVancomycin level, tuzmak8043-06-02 06:48:15 Test Item Value Reference Range Interpretation Comments xavi Shaw (test code = 11.9 ug/mL 96759-8) Lefty JohnsonVENIPUNC NEED PHYS SKILL,DX OR BX4440-07-42 14:59:18SEstela lim RN 07/02/2019 3:03 PMMidlineDate/Time: 07/02/2019 [...] Catheter Length (cm): 10 Catheter Lot Number: [id number] Catheter Expiration Date: 1Procedure Details: Landmarks identified: [...] tolerance of procedure: Tolerated well, no immediate complicationsHounew england [facility] hospital MethodistVancomycin level, trough 2019-07-01 15:28:35 Test Item Value Reference Range Interpretation Comments Vancomycin, trough 23.0 ug/mL 10-20 HH Therapeut ic Ranges: (test code = 16615-5) Peak 30.0 - 40.0 ug/mL T rough 10.0 - 20.0 ug/mL Lab Interpretation Abnormal (test code = 41325-4) [place] [facility] Transjugular Liver Txqkhs1821-14-22 16:47:45Hm Interface, Radiology Results 06/30/2019 4:50 PM CSTPerforming RadiologistJeveronica Lauren MD AssistantsNone Anesthesia TypeModerate sedation was administered by the procedure nurse and monitored by the procedure physician for a zpxv-qx-nfgf sedation time of 20 minutes. Lidocaine 1% was usedfor local anesthetic. Pre Procedure Ohfrlyxxv53-eokf-fmr man with possible cirrhosis.. Post Procedure DiagnosisStatus [...] for local anesthetic. Using real-time ultrasound guidance, j64-snnry micropuncture needle was used to access the [...] into the inferior vena cava. A long 9-Ugandan vascular sheath was then placed,andadvanced over the guidewire into the right atrium. Right atrial pressure measures were then obtained. A 5-Ugandan multipurpose catheter was advanced over the guidewire and used to select the right hepatic vein. A CO2 right hepatic venogram was performed. Pressure measurements were also obtained in boththe free and wedge positions. The 9-Ugandan vascular sheath was then advanced into the right hepatic vein. The transjugular liver biopsy system was advanced through the 9-Ugandan vascular sheath, and multiple 18-gauge core liver biopsy specimens were obtained and submitted to pathology. The transjugularliver biopsy system and 9-Ugandan vascular sheath were then removed from the [...] hepatic: 11 mmHg Wedge hepatic: 15 mmHg [facility]0MC7286Z39FhbcketSt. [facility] 12 qcbe6580-67-13 18:56:23 Test Item Value Reference Range Interpretation Comments Ventricular rate (test 62 code = 253) Atrial rate (test code 62 = 255) LA interval (test code 152 = 266) QRSD [...] of 27-JUN-2019 08:13,-No significant change was found- [place] IfvrpzvrfEpnidhfa0997-50-57 10:42:45 Test Item Value Reference Range Interpretation Comments Troponin (test code = <0.006 0-0.04 [place] [address]-7) having a myocar dial infarction, mara bhavin [...] 0.020 ng/mL Lefty HaywoodGaloti smooth muscle Ab nptews1164-35-77 14:32:24 Test Item Value Reference Range Interpretation Comments Anti smooth muscle Ab screen Not Detected Not-Detected (test code = 262) Lefty HaywoodjoseEVELYN Tunneled Dialysis Catheter Furknexje2126-30-46 07:28:35Hm Interface, Radiology Results 06/24/2019 7:31 AM CSTPERFORMING RADIOLOGIST:Will Petersen MD ASSISTANTS:None. ANESTHESIA TYPE:Moderate sedation was administered by the procedure nurse and monitored by the procedure physician for a total mtcl-ga-ofqm sedation time of 8 minutes. Lidocaine 1% [...] cavoatrial junction. PLAN:-Catheter is ready for immediate use.[facility]-[id number] Methodalbuquerque indian dental clinicGram ixxiz6397-84-73 21:21:01Gram stain isolateRare WBC'sMany Gram negative rodsRare Gram positive cocci in pairs Comment: Specimen InformationSpecimen Source: DrainageSpecimen Site: Not otherwise specified [facility] MethodistAnti mitochondria zpfqus6235-81-86 15:12:05 Test Item Value Reference Range Interpretation Comments Anti mitochondria screen (test Not Detected Not-Detected code = 1686) [facility] Abdomen 1 Vw Iqivashp9695-76-09 18:02:41Hm Interface, Radiology Results 06/21/2019 6:05 PM CSTEXAMINATION: XR ABDOMEN 1 VW PORTABLECLINICAL HISTORY: Abd pain unspecified, BLQ abdominal pain rule out ileus or constipationCOMPARISON: Fluoroscopic images from 05/19/2008IMPRESSION:Artifact overlying the abdomen mildly limits evaluation.No dilated gas-filled loops of large or small bowel are noted. The patient is status post cholecystectomy.The bones of the abdomen and pelvis are unremarkable.The lung bases are clear.[facility] CITYL-[id number] MethodistProtein, urine, kutujy1476-29-73 20:50:36 Test Item Value Reference Range Interpretation Comments Protein, urine random (test code = 584 mg/dL 2888-6) [place] MethodistCreatinine level, urine, ouhktr2746-40-13 20:39:45 Test Item Value Reference Range Interpretation Comments Creatinine, urine, random (test code 99 mg/dL = 84142-2) [place] MethodistHepatitis B surface Ab, cshlmpucpmyv5133-80-83 18:16:55 Test Item Value Reference Range Interpretation [...] HBs 9.99 IU/L or less .. ..... Hqqbksox74.00 I U/L or greater .... PositiveResults greater than 1,000.00 I U/L are reported as gre ater than 1,000.00 IU/L. This assay should not be u sed for blood donor scr eening, associated re-e ntry protocols, or f or screening Human Cell, Tis sues and Cellular and Ti ssue-Based Products (HCT/P ).Performed by SRINIVAS bustos,[address], [place] [address] umk .[employer] , Roberto Almaguer MD, Lab. Director Lefty JohnsonUrine qvojaqq2836-52-36 10:35:14 Test Item Value Reference Range Interpretation Comments Urine culture No growth Specimen isolate (test after 24 InformationSpe adcare hospital of worcesteren code = 88217-1) hours Source: Urin eSpecimen Site: Clean cat [place] SlptavrotQLT4886-18-69 13:23:19 Test Item Value Reference Range Interpretation Comments ANNE screen (test Negative Negative Test perfor med using NOVA code = 550) Lite DAPI ANNE k it (Indirect Immunofluoresce nce Assay) for Anti-Nuclea r Antibody on Boats.comA-Ly ser 160 Analyzer. [place] MethodistHepatitis B core antibody kwkkf0958-79-73 08:03:43 Test Item Value Reference Range Interpretation Comments Hepatitis B core total Ab (test Non-reactive Non-reactive code = 29745-4) [place] MethodistHepatitis B core antibody [id number] 08:03:43 Test Item Value Reference Range Interpretation Comments Hepatitis B core IgM (test code Non-reactive Non-reactive = 20855-9) [place] MethodistHepatitis A antibody GdC1240-24-28 08:03:43 Test Item Value Reference Range Interpretation Comments Hepatitis A IgM (test code = Non-reactive Non-reactive 77018-0) [place] MethodistHepatitis C vbzxvibk9404-35-18 08:03:43 Test Item Value Reference Range Interpretation Comments Hepatitis C Ab (test code = Non-reactive Non-reactive 29915-3) [place] MethodistAmmonia zifbr9109-96-47 08:01:41 Test Item Value Reference Range Interpretation Comments Ammonia (test code = 1841-6) 63 umol/L 16-60 H Lab Interpretation (test code = Abnormal 10130-1) [place] MethodistHepatitis B surface aoruzsg8068-26-61 07:28:04 Test Item Value Reference Range Interpretation Comments Hepatitis B surface Ag (test Non-reactive Non-reactive code = 5195-3) [place] MethodistHepatitis B surface zmjtplpa1307-81-14 07:28:04 Test Item Value Reference Range Interpretation Comments Hepatitis B surface Ab (test Non-reactive Non-reactive code = 27665-7) [place] MethodistUrinalysis screen and microscopy, with reflex to culture 2019-06-18 07:26:53 Test Item Value Reference Range Interpretation Comments Specimen site (test code = Clean catch 6413897) Color, UA (test code = 5778-6) Yellow Appearance, UA (test code = Cloudy 5767-9) Specific gravity, UA (test code = 1.011 1.001-1.035 5811-5) pH, UA (test code = 5803-2) 5.0 5.0-8.5 Protein, UA (test code = 97755-9) 3+ Negative A Glucose, UA (test code = 18297-4) 1+ Negative A Ketones, UA (test code = 2514-8) Negative Negative Bilirubin, UA (test code = Negative Negative 5770-3) Blood, UA (test code = 5794-3) Small Negative A Nitrite, UA (test code = 5802-4) Negative Negative Urobilinogen, UA (test code = <2.0 <2.0 19078-5) Leukocyte esterase, UA (test code Negative Negative = 5799-2) WBC, UA (test code = 5821-4) 14 0- 1 /HPF H RBC, UA (test code = 45202-8) 1 0- 5 /HPF Bacteria, UA (test code = Few None seen 97015-6) WBC clumps, UA (test code = Few A 80403-5) Yeast, UA (test code = 01635-0) None seen Yeast with pseudohyphae, UA (test None seen code = 15889-5) Amorphous crystals (test code = Few 72822-6) Granular casts, UA (test code = 1 0- 1 /LPF 5793-5) Lab Interpretation (test code = Abnormal 57641-1) [place] MethodistAlpha npbwmhjxizb8617-75-75 07:19:58 Test Item Value Reference Range Interpretation Comments Alpha fetoprotein 1.6 ng/mL 0-8.3 The Lexis 8000 AFP (test code = immunoassay was used. 81855-5) Results obtaine d with different assay methods or kits should not be used interchang eably and may be differen tTad HaywoodistCeruloplasmin kicof4306-34-44 07:17:32 Test Item Value Reference Range Interpretation Comments Ceruloplasmin (test code = 2064-4) 22 mg/dL 15-30 Lefty HaywoodVaclaapexSMJ1577-15-40 07:17:31 Test Item Value Reference Range Interpretation Comments GGT (test code = 2324-2) 80 U/L 0-59 H Lab Interpretation (test code = Abnormal 22297-5) [place] MethodistAlpha-1 antitrypsin zcbyl2601-88-85 07:17:31 Test Item Value Reference Range Interpretation Comments Alpha-1 antitrypsin (test code = 166 mg/dL 90-200 6771-0) [facility]ty HaywoodistTissue transglutaminase Ab, MlZ5170-71-31 17:53:26 Test Item Value Reference Range Interpretation Comments Tissue 1 U/mL 0-3 No further sheldon ac transglutaminase Ab, testing to be IgA (test code = 2324) perfo rmed.INTERPRETIV E INFORMATION: Tissue Transglutaminas e (tTG) Antibody, IgA3 U/mL or less: Negative4-10 U/ mL: Weak Oscasgpy44 U/mL or greater: PositivePresenc e of the [...] predic tive value for disease.Perform ed by [facility],[address] [facility], [place] [address] [email or web address], Roberto Almaguer MD, La b. Director BRENT (test code = BRENT) CO2 called with reae back to Yu Kwon/ JAMAR at 06/16/2019 08:04 by NEFTALY. Lefty JohnsonUS Abdomen Fsidapbl9654-30-81 16:55:54Hm Interface, Radiology Results 06/17/2019 4:59 PM [...] to participate in the care of your patient.[facility]-[id number] Methodist Abdominal Cyuelod6103-67-14 16:52:25Hm Interface, Radiology Results 06/17/2019 4:55 PM [...] artery and vein are identified and are patent.[facility]-[id number] [facility] Renal 2019-06-17 14:29:49Hm Interface, Radiology Results 06/17/2019 2:32 PM CSTEXAMINATION: US RENALCLINICAL HISTORY: Flank pain stone disease suspectedCOMPARISON: None.IMPRESSION: The right kidney measures 12cm in length.The left kidney measures 13.9 cm in length.There is no renal mass, stone, cyst, or hydronephrosis. Echogenicity is normal.The urinary bladder is unremarkable.[facility]1OE6550HEFUxtzulh MethodistCeliac disease reflexive cascade 2019-06-17 07:55:20 Test Item Value Reference Range Interpretation Comments IgA (test code = 449 mg/dL 68-408 H Total IgA i s within 2458-8) or higher than established ran ges. Tissue Transglutaminas e, IgA to follow.REFERENC E INTERVAL: Immunoglobulin AAccess complet e set of age- and/or gender-specific reference inter vals for this test i n the Monitoring Division Laboratory Test Directory (PagosOnLine).P erfor med by Macheen,50 0 [facility], [facility] [place] [address] lui .[employer], Roberto Almaguer MD, La b. Director BRENT (test code = BRENT) CO2 called with reae back to Yu Kwon/ [facility] at 06/16/2019 08:04 by JN1. Lab Interpretation Abnormal (test code = 00926-0) [facility] ydvagpigtiin0754-25-65 13:53:32 Test Item Value Reference Range Interpretation Comments Fecal calprotectin (test code = 57.64 <15.6-120mg/kg 40170-7) [facility] carotid uwfhtw4505-31-22 20:05:00Interface, Radiology Results In - 06/15/2019 8:06 PM [facility] Vascular Ultrasound Laboratory Carotid Artery Duplex [address] [place] [address] For quality assurance coach purposes, the categorization of the degree of the stenosis of this exam is based on criteria described in the IAC carotid stenosis grading white paper( www.intersocietal.org/Vascular) and Thanh Nava., Александр CTadB., et al. Carotid artery stenosis: wagner-scale and Doppler US diagnosis--Society of Radiologists in Ultrasound Consensus Conference. Radiology. 2003 Nov; 229(2):340-6. Pat.Name: PAOLA ENGEL Rebecca.ID: [id number] .Date: 06/15/2019 Refer.MD: MILTON ELLINGTON MDExam Time: 11:04:00 AM Study Type:Carotid Height: 67in Weight: 212lb BSA: 2.07 m2 Age: 4 1965,53Y Sex: MALE BP: 116/68 Sonogrphr: Suad Greco, [facility], RVTPat. Stat.:Inpatient Room: [facility] Vol: ED, [facility] - 4: [id number] Echo Event ID:[id number] Order ID: [id number] Reason for Study:Pre-op evaluation History / Clinical:Smoker, CAD, S/p CT, DM, HTN, HLD, Liver cirrhosis,Chest pain, ObesityProcedures: [...] 0.564 Sign 06/15/2019 08:05 Zachery Vallejo MD, [facility] MethodistSpirometry, diffusion, lung cvtkpta0056-60-29 14:29:17 Test Item Value Reference Range Interpretation [...] code = 5445) [place] MethodistCT Head Wo Wxjsixfb7166-90-87 20:36:27Hm Interface, Radiology Results - 06/14/2019 8:39 [...] be obtained for further evaluation if clinically indicated.[facility]-[id number] Methodist Gastrointestinal sqfsu4997-32-09 13:46:31Gastrointestinal panelNegative for all pathogens tested:Negative for [...] Comment: Specimen InformationSpecimen Source: StoolSpecimen Site: Nonpreserved [facility] MethodistManual ilfelohsaojs1592-03-16 08:23:11 Test Item Value Reference Range Interpretation Comments Manual differential (test code = PERFORMED 60264-0) Neutrophils (test code = 53.0 % 39-69 64531-0) Lymphocytes (test code = 36.0 % 25-45 94155-6) Monocytes (test code = 57637-3) 6.0 % 0-10 Eosinophils (test code = 4.0 % 0-5 34160-6) Basophils (test code = 03167-6) 1.0 % 0-1 Metamyelocytes (test code = 0 % 740-1) Promyelocytes (test code = 0 % 783-1) Platelet slide review (test code Rebekah adequate = 67283-1) Anisocytosis (test code = 702-1) Moderate Polychromasia (test code = Moderate 78785-5) Ovalocytes (test code = 774-0) Moderate [facility] ResourcesHemoglobin Q2l2076-97-86 08:03:34 Test Item Value Reference Range Interpretation Comments Hemoglobin A1C (test 12.6 % 4-5.6 H HbA1c c utoffs for code = 22680-2) diagnosing diabetes:4.0% - 5.6% = normal5.7% - 6.4% = increased risk for diabetes (prediabetes)9> =6.5% = fscpitbw4Macx s for glycemic contro l (ADA 2016)< 7.0% Ta rget for non adults with win betes. More or less stringent targe ts may be appropriate for individual virginie ents. <7.5% Target for Children and adolescents wit h type 1 diabetes. Lab Interpretation (test Abnormal code = 99844-8) Lefty JohnsonTLeda, wzns3897-66-94 06:34:11 Test Item Value Reference Range Interpretation Comments T4, free (test code = 3024-7) 0.8 ng/dL 0.9-1.7 L Lab Interpretation (test code = Abnormal 21770-7) [place] MethodistThyroid stimulating xhzbemo7639-55-74 06:34:11 Test Item Value Reference Range Interpretation Comments TSH (test code = 3016-3) 1.95 0.27- 4.20 uIU/mL [place] MethodistLipid wjizr7739-48-04 06:30:05 Test Item Value Reference Interpretation Comments [...] (mg/dL) interpretation (test < 200 code = 04863-8) Desirable 200-239 Borderline -high >=240 Hi gh [...] mg/dL) Lab Interpretation Abnormal (test code = 91386-7) [place] MethodistInfluenza vsmgxyr7489-92-42 00:42:57 Test Item Value Reference Range Interpretation Comments Influenza Negative for Specimen antigen (test Influenza A/B InformationSp ecimen code = 39642-0) antigen. [facility] Right [place] MethodistXR Chest 1 Vw Suwddjrc4807-92-84 20:58:31Hm Interface, Radiology Results Incoming - 06/12/2019 9:01 PM CSTEXAMINATION: XR CHEST 1 VW PORTABLECLINICAL HISTORY: tachyCOMPARISON: 03/20/2018IMPRESSION:No radiographic evidence for acute cardiopulmonary process.Cardiomediastinal silhouette is within normal limits of size.No focal or confluent airspace consolidation is seen on this single AP plane to suggest acute pneumonia. No sizable pleural e ffusion. No pneumothorax identified.No acute osseous abnormalities are visualized.[facility]-[id number] MethodistB natriuretic bymwzis4626-14-03 20:55:06 Test Item Value Reference Range Interpretation Comments BNP (test code = 53 pg/mL 0-100 65393-8) BRENT (test code = BRENT) GLU results called to and read back by TOSHIA PEREZ RN LIZBETH (name/location)at _ 06/12/2019 20:51 BY [place] MethodistComprehensive metabolic fxtqp1463-42-21 20:50:02 Test Item Value Reference Range Interpretation Comments Sodium (test code = 137 135- 148 mEq/L 2951-2) Potassium (test code = 3.9 3.5- 5.0 mEq/L 2823-3) Chloride (test code = 103 98- 112 mEq/L 2075-0) CO2 (test code = 8-9) 19 24- 31 mEq/L L Anion gap (test code = 15@ANIO 7- 15 mEq/L 59365-3) BUN (test code = 3094-0) 25 mg/dL 6-20 H Creatinine (test code = 2.04 mg/dL 0.7-1.2 H 2160-0) Glucose (test code = 519 mg/dL 65-99 HH 2345-7) Calcium (test code = 10.1 mg/dL 8.3-10.2 87567-5) Protein (test code = 8.4 g/dL 6.3-8.3 H 9994.6-7.0 2885-2) g/dL1 rwrs4077.4-7.6 g/dL7 months-2dgnr988 .1- 7.3 g/dL1-2 cksyc601.6-7.5 g/dL>3 hoyjm678.0-8.0 g/pS75-8601335. 3-8 .3 g/dL Albumin (test code = 3.1 g/dL 3.5-5 L 1751-7) A/G ratio (test code = 0.6 0.7-3.8 L 1759-0) Alkaline phosphatase 166 U/L 40-129 H (test code = 6768-6) AST (test code = 1920-8) 23 U/L 10-50 ALT (test code = 1742-6) 24 U/L 5-50 Total bilirubin (test 0.3 mg/dL 0-1.2 code = 1975-2) Lab Interpretation (test Abnormal code = 48164-6) [place] MethodistPartial thromboplastin time, wtbioxnfh2270-70-79 20:31:46 Test Item Value Reference Range Interpretation Comments PTT (test code = 28.1 23.0- 36.0 [place] [address]-4) unfractionated heparin is61.0-112.0 se conds which corresponds to Anti-Xa0.3-0.7 U/ml. [place] [facility] Preliminary Interpretation - Not an Vspij5990-85-46 19:50:09 Test Item Value Reference Range Interpretation Comments BRENT (test code = BRENT) Guillermo Jeffery MD 06/22/2019 10:44 [facility] Preliminary Interpretation - Not an OrderPerformed by: Guillermo Jeffery MDAuthorized by: Guillermo Jeffery MD ECG reviewed by ED Physician in the absence of a logistic specialist: yes Previous ECG: Previous ECG: UnavailableInterpretat ion: Interpretation: abnormal Rate: ECG rate: 113 ECG rate assessment: tachycardic Rhythm: Rhythm: sinus tachycardia Ectopy: Ectopy: none QRS: QRS axis: Normal QRS intervals: NormalConduction: Conduction: abnormal Abnormal conduction: LPFB ST segments: ST segments: NormalOther findings: Other findings: prolonged qTc interval Lab Interpretation Abnormal (test code = 44211-2) [facility] 12 wmjg0850-26-21 14:04:08Interface, External Ris In - 01/12/2019 2:04 PM CDTVentricular Rate 77 BPMAtrial Rate 77 BPMP-R Interval 138 msQRS Duration 144 msQ-T Interval 442 msQTC Calculation(Bazett) 500 msP Shushan 30 degreesR Shushan 41 degreesT Shushan 30 degreesNormal sinus rhythmLimb lead misplacementRight bundle branch blockNonspecific T wave abnormalityProlonged QTAbnormal ECGWhen compared with ECG of 10-JAN-2019 06:01,Limb leads are now misplacedConfirmed by MD JOEY, MAGALY ([id number]) on 01/12/2019 2:04:04 [facility]-Glucose phpzz1917-28-47 12:50:00 Test Item Value Reference Range Interpretation Comments POC-Glucose Meter (test 119 mg/dL 70-110 H TEST ED AT [facility] code = 1538) [address] [facility] 7703 0 Lab Interpretation (test Abnormal code = 44574-9) [facility]-GLUCOSE [id number] 12:50:00 Test Item Value Reference Range Interpretation Comments POC-GLUCOSE METER 119 mg/dL 70-110 H TESTED AT [facility] 6720 (BEAKER) (test code = [facility] 1538) [address] Basic Metabolic Iruax3834-82-14 06:16:00 Test Item Value Reference Range Interpretation Comments Sodium (test code = 139 meq/L 893-935 7748-2) Potassium (test code = 4.5 meq/L 3.5-5.1 2823-3) Chloride (test code = 109 meq/L 98-107 H 2075-0) CO2 (test code = 23 meq/L 22-29 2028-9) BUN (test code = 30 mg/dL 7-21 H 3094-0) Creatinine (test code = 1.87 mg/dL 0.57-1.25 H 2160-0) Glucose (test code = 219 mg/dL 70-105 H 2345-7) Calcium (test code = 8.9 mg/dL 8.4-10.2 80727-2) EGFR (test code = 38 mL/min/1.73 [place] [address]-6) NOT ACCURATE CREATININE CLEARANCE IN PREDICTING GLOMERULAR FILTRATION RATE . ESTIMATED GFR I S NOT APPLICABLE FOR DIALYSIS PATIEN TS. Lab Interpretation Abnormal (test code = 60134-3) [facility]OLIC [id number] 06:16:00 Test Item Value Reference Range Interpretation [...] TS. CBC with platelet count + automated vjqu3155-67-59 05:42:00 Test Item Value Reference Range Interpretation [...] 450 K/CU MM MPV (test code = 34714-1) 11.8 fL 9.4-12.4 nRBC (test code = [...] 2801) Lab Interpretation (test code = Abnormal 84302-5) [facility] W/PLT COUNT & AUTO [id number] 05:42:00 Test Item Value Reference Range Interpretation [...] PERCENT (BEAKER) (test code = 2801) POCT-GLUCOSE ATINL2324-02-77 20:34:00 Test Item Value Reference Range Interpretation Comments POC-GLUCOSE METER 205 mg/dL 70-110 H TESTED AT [facility] 6720 (BEAKER) (test code = [place] [facility] 1538) [address] CT, CHEST, WITHOUT [id number] 18:24:00FINAL REPORT TECHNIQUE: CT scan of the [...] MDReport Verified Date/Time: 01/10/2019 18:24:57 Reading Location: [facility] C013Y CT Body Reading [...] Klein Verified Date/Time: 01/10/2019 18:24:57 Reading Location: [facility] C013Y CT Body Reading Room [facility] [id number] 17:31:00 Test Item Value Reference Range Interpretation Comments POC-GLUCOSE METER 183 mg/dL 70-110 H TESTED AT [facility] 67 (CHASITY) (test code = [place] 1538) [address] CT, BRAIN, WITHOUT [id number] 14:47:00FINAL REPORT CT, BRAIN, WITHOUT CONTRAST INDICATION: [...] Date/Time: 01/10/2019 14:47:25 CT brain without IV aublhcuv3731-04-63 14:47:00Interface, External Ris In - 01/10/2019 2:49 [...] recommended for further characterization. Signed: Lubna Lr [facility] ([place], [place]) Verified Date/Time: 01/10/2019 14:47:25 [facility] D-khdbk9232-18mmmcz8776-50-46 11:36:00 Test Item Value Reference Range Interpretation Comments D-Dimer, Quant (test code 2.14 <0.50 MG/L FEU H = 51648-6) BRENT (test code = BRENT) Intended Use: [...] range. Lab Interpretation (test Abnormal code = 51449-7) [facility] CampusD-BJBLB1875-51-86 11:36:00 Test Item Value Reference Range Interpretation [...] within 95-100% range.RAD, CHEST, 1 VIEW, NON NKIZ1656-71-62 08:17:00Reason for exam:->chest painShould this be performed [...] Montes Verified Date/Time: 01/10/2019 08:17:19 Reading Location: [address] Ortho Consult Reading Room XR chest 1 view portable / ryocfwu8665-75-05 08:17:00 Interface, External Ris In - 01/10/2019 [...] Montes Verified Date/Time: 01/10/2019 08:17:19 Reading Location: [facility] C013X Ortho Consult [facility] 2019-[facility]-10 07:02:00 Test Item Value Reference Range Interpretation Comments Troponin I (test code = 0.02 ng/mL 0-0.03 02591-4) BRENT (test code = BRENT) Troponin I [...] tachyarrhythmia. Lab Interpretation (test Normal code = 61862-1) [facility] [id number] 07:02:00 Test Item Value Reference Range Interpretation [...] Range Interpretation Comments BNP (test code = 65211-3) 130 pg/mL 0-100 H Lab Interpretation (test code = Abnormal 68132-2) [facility] CampusB-TYPE NATRIURETIC FACTOR (BNP)2019-01-10 06:59:00 Test Item Value Reference Range Interpretation Comments B-TYPE NATRIURETIC PEPTIDE (BEAKER) 130 pg/mL 0-100 H (test code = 700) BASIC METABOLIC [id number] 06:51:00 Test Item Value Reference Range Interpretation [...] PATIEN TS. CBC W/PLT COUNT & AUTO [id number] 06:27:00 Test Item Value Reference Range Interpretation [...] PERCENT (BEAKER) (test code = 2801) TROPONIN [id number] 23:52:00 Test Item Value Reference Range Interpretation [...] acidosis, acute neurological disease, and persistent tachyarrhythmia.POCT-GLUCOSE [id number] 22:03:00 Test Item Value Reference Range Interpretation Comments POC-GLUCOSE METER 315 mg/dL 70-110 H TESTED AT [facility] 6720 ([facility] (test code = [facility] 1538) [address] POCT-GLUCOSE [id number] 20:02:00 Test Item Value Reference Range Interpretation Comments POC-GLUCOSE METER 250 mg/dL 70-110 H TESTED AT [facility] 6720 ([facility] (test code = [facility] 1538) [address] TROPONIN [id number] 19:05:00 Test Item Value Reference Range Interpretation [...] acidosis, acute neurological disease, and persistent tachyarrhythmia.POCT-GLUCOSE [id number] 17:40:00 Test Item Value Reference Range Interpretation Comments POC-GLUCOSE METER 246 mg/dL 70-110 H TESTED AT [facility] 6720 (BEAKER) (test code = [facility] 1538) [address] POCT-GLUCOSE [id number] 08:11:00 Test Item Value Reference Range Interpretation Comments POC-GLUCOSE METER 243 mg/dL 70-110 H TESTED AT [place] [address] [facility] (test code = [facility] 1538) [address] BASIC METABOLIC [id number] 05:04:00 Test Item Value Reference Range Interpretation [...] S NOT APPLICABLE FOR DIALYSIS PATIASHLY FLYNN [id number] 04:56:00 Test Item Value Reference Range Interpretation Comments PTT (test code = 13489-8) 35.0 22.5- 36.0 seconds Lab Interpretation (test code = Normal 14293-7) [facility] CampusAPTT2019-09-14 04:56:00 Test Item Value Reference Range Interpretation Comments PARTIAL THROMBOPLASTIN TIME 35.0 seconds 22.5-36.0 (BEAKER) (test code = 760) CBC W/PLT COUNT & AUTO [id number] 04:48:00 Test Item Value Reference Range Interpretation [...] PERCENT (BEAKER) (test code = 2801) POCT-GLUCOSE [id number] 22:08:00 Test Item Value Reference Range Interpretation Comments POC-GLUCOSE METER 364 mg/dL 70-110 H Notified R N MD/TESTED (BEAKER) (test code = AT [address] 1538) [place] [address] POCT-GLUCOSE [id number] 17:05:00 Test Item Value Reference Range Interpretation Comments POC-GLUCOSE METER 389 mg/dL 70-110 H Notified R N MD/TESTED (BEAKER) (test code = AT [address] 1538) [place] [address] BASIC METABOLIC [id number] 16:28:00 Test Item Value Reference Range Interpretation [...] S NOT APPLICABLE FOR DIALYSIS PATIEN TS. PT/[id number] 16:26:00 Test Item Value Reference Range Interpretation Comments Protime (test code = 13.4 11.9- 14.2 5902-2) seconds INR (test code = 1.1 <=5.9 6301-6) PTT (test code = 32.0 22.5- 36.0 01737-0) seconds BRENT (test code = BRENT) Effective 09/23/2018: PT Reference Range ChangeNew: 11.9-14.2 Previous: 11.7-14.7 RECOMMENDED COUMADIN/WARFARIN INR THERAPY RANGESSTANDARD DOSE: 2.0-3.0 Includes: PROPHYLAXIS for venous thrombosis, systemic embolization; TREATMENT for venous thrombosis and/or pulmonary embolus.HIGH RISK: Target INR is 2.5-3.5 for patients wiht mechanical heart valves. Lab Interpretation Normal (test code = 39921-3) [facility] CampusPT/[id number] 16:26:00 Test Item Value Reference Range Interpretation [...] INR is2.5-3.5 for patients wiht mechanical heart valves.[id number] 16:26:00 Test Item Value Reference Range Interpretation Comments PARTIAL THROMBOPLASTIN TIME 32.0 seconds 22.5-36.0 (BEAKER) (test code = 760) POCT-GLUCOSE [id number] 12:06:00 Test Item Value Reference Range Interpretation Comments POC-GLUCOSE METER 321 mg/dL 70-110 H Notified Rohith Harrison MD/TESTED (CHASITY) (test code = AT [facility] [address] [place] 1538) [place] [address] ECHO W CONTRAST & [id number] 09:20:17Ejection FractionSSTEELE [facility] ECHO HEARTLAB MKCKESSON CPACSInterface, External Ris In - 01/08/2019 9:20 AM C DTTransthoracic Echocardiography Report (TTE) Demographics Patient Name PAOLA ENGEL Dateof Study 01/07/2019 MAGED BOND Gender Male Visit Number [id number] Race Unknown Room Number 7513 Number Date of 1965 Referring Yvette Mckenzie Age 53 year(s) 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 Leon Fragoso [facility] 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 KARYN Maradiaga Procedure Type of Study [...] CO: 5.26 l/min LVOT CI: 2.47 l/min/m^2[facility] [id number] 08:29:00 Test Item Value Reference Range Interpretation Comments POC-GLUCOSE METER 263 mg/dL 70-110 H TESTED AT [facility] 6720 ([facility] (test code = [place] 1538) [address] [id number] 04:54:00 Test Item Value Reference Range Interpretation Comments PARTIAL THROMBOPLASTIN TIME 31.0 seconds 22.5-36.0 ([facility] (test code = 760) CBC W/PLT COUNT & AUTO [id number] 04:43:00 Test Item Value Reference Range Interpretation Comments WHITE BLOOD CELL COUNT ([facility] 6.6 K/ L 3.5-10.5 (test code = 775) RED BLOOD CELL COUNT ([facility] 3.45 M/ L 4.63-6.08 L (test code = 761) HEMOGLOBIN (AKER) (test code = 10.9 GM/DL 13.7-17.5 L 410) HEMATOCRIT ([facility] (test code = 30.8 % 40.1-51.0 L 411) MEAN CORPUSCULAR VOLUME ([facility] 89.3 fL 79.0-92.2 (test code = 753) MEAN CORPUSCULAR HEMOGLOBIN 31.6 pg 25.7-32.2 (AKER) (test code = 751) MEAN CORPUSCULAR HEMOGLOBIN CONC 35.4 GM/DL 32.3-36.5 (AKER) (test code = 752) RED CELL DISTRIBUTION WIDTH 13.5 % 11.6-14.4 (AKER) (test code = 412) PLATELET COUNT ([facility] (test 138 K/CU MM 150-450 L code [...] PERCENT (BEAKER) (test code = 2801) POCT-GLUCOSE [id number] 22:11:00 Test Item Value Reference Range Interpretation Comments POC-GLUCOSE METER 319 mg/dL 70-110 H Notified R Christy BOSS/TESTED ([facility] (test code = AT [place] [address] [place] [id number]) [facility] [place] [address] [id number] 20:11:00 Test Item Value Reference Range Interpretation Comments PARTIAL THROMBOPLASTIN TIME 33.3 seconds 22.5-36.0 ([facility] (test code = 760) POCT-GLUCOSE [id number] 18:49:00 Test Item Value Reference Range Interpretation Comments POC-GLUCOSE METER 309 mg/dL 70-110 H TESTED AT [place] [address] ([facility] (test code = [place] [facility] [place] 1538) [address] POCT-GLUCOSE [id number] 14:48:00 Test Item Value Reference Range Interpretation Comments POC-GLUCOSE METER 161 mg/dL 70-110 H TESTED AT [place] [address] ([facility] (test code = [place]) [address] POCT-GLUCOSE [id number] 14:46:00 Test Item Value Reference Range Interpretation Comments POC-GLUCOSE METER 159 mg/dL 70-110 H TESTED AT [place] [address] ([facility] (test code = [place]) [address] TROPONIN [id number] 13:58:00 Test Item Value Reference Range Interpretation Comments TROPONIN I ([facility] (test code = 397) < ng/mL 0.00-0.03 [...] failure, acidosis, acute neurological disease, and persistent tachyarrhythmia.[id number] 12:25:00 Test Item Value Reference Range Interpretation Comments PARTIAL THROMBOPLASTIN TIME 30.3 seconds 22.5-36.0 ([facility] (test code = 760) POCT-GLUCOSE [id number] 12:18:00 Test Item Value Reference Range Interpretation Comments POC-GLUCOSE METER 168 mg/dL 70-110 H TESTED AT [place] [address] ([facility] (test code = [place] [facility] [place] 1538) [address] POCT-GLUCOSE [id number] 11:06:00 Test Item Value Reference Range Interpretation Comments POC-GLUCOSE METER 180 mg/dL 70-110 H TESTED AT [place] [address] ([facility] (test code = [place] [facility] [place] 1538) [address] POCT-GLUCOSE [id number] 10:21:00 Test Item Value Reference Range Interpretation Comments POC-GLUCOSE METER 195 mg/dL 70-110 H TESTED AT [place] [address] ([facility] (test code = [place] [facility] [place] 1538) [address] POCT-GLUCOSE [id number] 10:21:00 Test Item Value Reference Range Interpretation Comments POC-GLUCOSE METER 180 mg/dL 70-110 H TESTED AT [place] [address] ([facility] (test code = [place] [facility] [place] 1538) [address] POCT-GLUCOSE [id number] 08:06:00 Test Item Value Reference Range Interpretation Comments POC-GLUCOSE METER 218 mg/dL 70-110 H TESTED AT [place] [address] ([facility] (test code = [place] [facility] [place] 1538) [address] TROPONIN [id number] 07:00:00 Test Item Value Reference Range Interpretation Comments TROPONIN I ([facility] (test code = 0.01 ng/mL 0.00-0.03 397) [...] afterwardsOnce on admission and Daily AM afterwardsPOCT-GLUCOSE [id number] 06:58:00 Test Item Value Reference Range Interpretation Comments POC-GLUCOSE METER 248 mg/dL 70-110 H TESTED AT [place] [address] ([facility] (test code = [place] [facility] [place] 1538) [address] [id number] 06:54:00 Test Item Value Reference Range Interpretation Comments Magnesium (test code = 2.2 mg/dL 1.6-2.6 86209-9) BRENT (test code = BRENT) Once on admission and Daily AM afterwardsOnce on admission and Daily AM afterwardsOnce on admission and Daily AM afterwards Lab Interpretation Normal (test code = 84721-6) [facility] Test Item Value Reference Range Interpretation Comments Phosphorus (test code = 2.5 mg/dL 2.3-4.7 2777-1) BRENT (test code = BRENT) Once on admission and Daily AM afterwardsOnce on admission and Daily AM afterwardsOnce on admission and Daily AM afterwards Lab Interpretation Normal (test code = 35661-0) [facility] 06:54:00 Test Item Value Reference Range Interpretation Comments PHOSPHORUS ([facility] (test code = 2.5 mg/dL 2.3-4.7 604) Once on admission and Daily AM afterwardsOnce on admission and Daily AM afterwardsOnce on admission and Daily AM [id number] 06:54:00 Test Item Value Reference Range Interpretation [...] Daily AM afterwardsCBC W/PLT COUNT & AUTO [id number] 06:42:00 Test Item Value Reference Range Interpretation [...] 0-1 PERCENT (BEAKER) (test code = 2801) [id number] 06:28:00 Test Item Value Reference Range Interpretation Comments PARTIAL THROMBOPLASTIN TIME 30.6 seconds 22.5-36.0 (BEAKER) (test code = 760) POCT-GLUCOSE [id number] 06:01:00 Test Item Value Reference Range Interpretation Comments POC-GLUCOSE METER 266 mg/dL 70-110 H TESTED AT [facility] 6720 ([facility] (test code = [place] 1538) [address] POCT-GLUCOSE [id number] 04:57:00 Test Item Value Reference Range Interpretation Comments POC-GLUCOSE METER 271 mg/dL 70-110 H TESTED AT [place] [address] ([facility] (test code = [place] [facility] [place] 1538) [address] POCT-GLUCOSE [id number] 04:05:00 Test Item Value Reference Range Interpretation Comments POC-GLUCOSE METER 308 mg/dL 70-110 H Notified Rohith Harrison MD/TESTED ([facility] (test code = AT [place] [address]) [facility] [place] [address] 0 POCT-GLUCOSE [id number] 02:57:00 Test Item Value Reference Range Interpretation Comments POC-GLUCOSE METER 343 mg/dL 70-110 H Notified Rohith Harrison MD/TESTED ([facility] (test code = AT [place] [address]) [facility] [place] [address] 0 RAD, CHEST, 1 VIEW, NON [id number] 02:27:00Reason for exam:->mediastinal wideningShould this be performed [...] osseous structures are intact. Signed: Emmanuelle Kline [facility] ([place], [place]) Verified Date/Time: 01/07/2019 02:27:45 POCT-GLUCOSE [id number] 01:57:00 Test Item Value Reference Range Interpretation Comments POC-GLUCOSE METER 369 mg/dL 70-110 H TESTED AT [place] [address] ([facility] (test code = [place] [address]) [address] POCT-GLUCOSE [id number] 01:06:00 Test Item Value Reference Range Interpretation Comments POC-GLUCOSE METER 395 mg/dL 70-110 H Notified Rohith Harrison MD/TESTED ([facility] (test code = AT [place] [address]) [facility] [place] [address] TROPONIN [id number] 00:36:00 Test Item Value Reference Range Interpretation [...] Reference Range Interpretation Comments B-TYPE NATRIURETIC PEPTIDE ([facility] 151 pg/mL 0-100 H (test code = 700) [id number] 00:19:00 Test Item Value Reference Range Interpretation Comments PARTIAL THROMBOPLASTIN TIME 28.2 seconds 22.5-36.0 ([facility])) (test code = 760) Prior to initiating heparinPOCT-GLUCOSE [id number] 00:16:00 Test Item Value Reference Range Interpretation Comments POC-GLUCOSE METER 413 mg/dL 70-110 HH TESTED AT [place] [address] ([facility] (test code = [place] [address]) [address] POCT-GLUCOSE [id number] 23:10:00 Test Item Value Reference Range Interpretation Comments POC-GLUCOSE METER 452 mg/dL 70-110 HH Notified Rohith Harrison MD/TESTED ([facility] (test code = AT [place] [address]) [facility] [place] [address] 0 POCT-GLUCOSE [id number] 22:06:00 Test Item Value Reference Range Interpretation Comments POC-GLUCOSE METER 383 mg/dL 70-110 H TESTED AT [place] [address] ([facility] (test code = [place] [address]) [address] CT, BRAIN, WITHOUT [id number] 21:38:00FINAL REPORT CT Head without contrast CLINICAL [...] at time of dictation. Signed: Emmanuelle Kline [facility] ([place], [place]) Verified Date/Time: 01/06/2019 21:38:52 [facility] [id number] 21:12:00 Test Item Value Reference Range Interpretation [...] NOT APPLICABLE FOR DIALYSIS PATIEN TS. Hemoglobin [id number] 20:17:00 Test Item Value Reference Range Interpretation Comments Hemoglobin A1C (test code = 4548-4) 11.9 % 4.3-6.1 H Lab Interpretation (test code = Abnormal 02707-5) [facility] [id number] 20:17:00 Test Item Value Reference Range Interpretation Comments HEMOGLOBIN A1C (BEAKER) (test code = 11.9 % 4.3-6.1 H 368) TROPONIN [id number] 19:52:00 Test Item Value Reference Range Interpretation [...] acute neurological disease, and persistent tachyarrhythmia.Hepatic function [id number] 19:46:00 Test Item Value Reference Range Interpretation Comments Protein, Total (test 6.3 6.0- 8.3 gm/dL Speci men code = 2885-2) slightly hemolyzed Albumin (test code = 2.8 g/dL 3.5-5 [place] [address]-3) slightly hemolyzed Total Bilirubin (test 0.4 mg/dL [...] lipemic Lab Interpretation Abnormal (test code = 60874-6) [facility] [id number] 19:46:00 Test Item Value Reference Range Interpretation [...] (test code = 347) hemolyzed Specimen moderately [id number] 19:32:00 Test Item Value Reference Range Interpretation Comments PARTIAL THROMBOPLASTIN TIME 28.1 seconds 22.5-36.0 (BEAKER) (test code = 760) Prothrombin time/[id number] 19:31:00 Test Item Value Reference Range Interpretation [...] valves. Lab Interpretation Abnormal (test code = 76417-8) [facility]/[id number] 19:31:00 Test Item Value Reference Range Interpretation [...] mechanical heart valves.CBC W/PLT COUNT & AUTO [id number] 19:25:00 Test Item Value Reference Range Interpretation [...] PERCENT (BEAKER) (test code = 2801) POCT-GLUCOSE [id number] 17:51:00 Test Item Value Reference Range Interpretation Comments POC-GLUCOSE METER 342 mg/dL 70-110 H Notified R N MD/TESTED ([facility]) (test code = AT [facility] [address] [facility] 2970) [facility] [place] [address]
[2019-11-27] MEDS ORDERED: HYDROCODONE/APAP 10/325 TAB ONE (08:34)
[2019-11-27] MEDS ORDERED: cloNIDine HCL 0.1 MG TAB ONE (08:34)
[2019-11-27 08:56] LABS: Absolute Lymphocytes (CBC) 1.4 K/uL (0.7-4.9); Basophils % 1.1 % (0-1.3); Hematocrit 39.1 % (39.6-49.0); Lymphocytes % 22.4 % (15.3-44.8); MPV 11.4 fL (7.6-11.3); RBC Red Blood Cell Count 4.03 M/uL (4.33-5.43)
[2019-11-27 09:07] LABS: Potassium 3.9 mmol/L (3.5-5.1)
[2019-11-27] MEDS ORDERED: INSULIN -REGULAR HUMAN 50 UNIT/0.5 ML ML ONE ×2 (09:47→11:01)
--- NOTE | 2019-11-27 11:00 | RAD REPORT ---
EXAM DESCRIPTION: RAD - Chest Single View - 11/27/2019 8:53 am CLINICAL HISTORY: CHEST PAIN Chest pain. COMPARISON: Chest Single View dated 11/21/2019; Chest Single View dated 10/14/2019; Chest Single View dated 08/01/2019; Chest Single View dated 06/05/2019 FINDINGS: Portable technique limits examination quality. The lungs are grossly clear. The heart is normal in size. No displaced fractures.Right-sided venous c atheter has its tip in the SVC. IMPRESSION: No acute intrathoracic process suspected.
--- NOTE | 2019-11-27 11:23 | ER ---
Nurse's Notes [facility] Name: Wero Kwong Age: 54 yrs Sex: Male : 1965 Arrival Date: 11/27/2019 Time: 07:44 Bed 19 Private MD: Diagnosis: Bilateral inferior Thorax Pain Presentation: 11/26 07:51 Chief complaint: Patient states: Shortness of breath and back pain that began 1 week ss ago. Pt reports he was seen in the ER then and tested negative for COVID-19. Pt believes he has fluid in his lungs because of his fluid intake and is scheduled to have dialysis today at 1030. Coronavirus screen: Client denies travel out of the [place] in the last 14 days. shortness of breath, The client reports previous COVID testing was negative. Ebola Screen: Patient denies exposure to infectious person. Patient denies travel to an Ebola-affected area in the 21 days before illness onset. Initial Sepsis Screen: Does the patient meet any 2 criteria? No. Patient's initial sepsis screen is negative. Does the patient have a suspected source of infection? No. Patient's initial sepsis screen is negative. Risk Assessment: Do you want to hurt yourself or someone else? Patient reports no desire to harm self or others. Onset of symptoms was October 2019. 07:51 Method Of Arrival: Ambulatory ss 07:51 Acuity: MARIA [place] ROSAR[place] 3 ss Historical: - Allergies: 07:54 Codeine; ss 07:54 Hydrocodone-Acetaminophen; ss 07:54 Morphine; ss - Home Meds: 07:55 acetazolamide 500 mg Oral cpER 1 cap 2 times per day [Active]; citalopram 20 mg tab 1 ss tab once daily [Active]; gabapentin 300 mg Oral cap 3 caps twice a day [Active]; clopidogrel 75 mg Oral tab 1 tab once daily [Active]; furosemide 40 mg Oral tab 1 tab 2 times per day [Active]; Humulin 70/30 100 unit/mL (70-30) Sub-Q susp [Active]; levetiracetam 500 mg Oral tab 1 tab 2 times per day [Active]; lisinopril 10 mg Oral tab 1 tab once daily [Active]; Novolog 100 unit/mL Sub-Q soln three times a day [Active]; simvastatin 40 mg Oral tab 1 tab once daily [Active]; spironolactone 25 mg Oral tab nightly [Active]; Toujeo SoloStar 300 unit/mL (1.5 mL) subcutaneous inpn 65 unit daily [Active]; travatan eye drops [Active]; - PMHx: 07:54 CAD; Cirrhosis; High Cholesterol; Myocardial infarction; Hypertension; kidney failure; ss dialysis (); Diabetes - IDDM; CVA; CHF; neuropathy; Seizures; - PSHx: 07:54 dialysis prot right chest; ss - Immunization history:: Adult Immunizations up to date. - Social history:: Smoking status: Patient reports the use of cigarette tobacco products, smokes one pack cigarettes per day. Screenin:43 Abuse screen: Denies threats or abuse. Denies injuries from another. Nutritional hb screening: No deficits noted. Tuberculosis screening: No symptoms or risk factors identified. Fall Risk Total Morales Fall Scale indicates Low Risk Score (25-44 pts). Fall prevention measures have been instituted. Side Rails Up X 2 Frequent Obs/Assesments occuring As available Patient and Family Educated on Fall Prevention Program and strategies. Assessment: 07:59 General: Appears in no apparent distress. Behavior is calm, cooperative. Pain: Pain hb currently is 8 out of 10 on a pain scale. Neuro: Level of Consciousness is awake, alert, obeys commands, Oriented to person, place, time, situation. Cardiovascular: Capillary refill < 3 seconds Patient's skin is warm and dry. Respiratory: Respiratory effort is even, unlabored, Respiratory pattern is regular, symmetrical. GI: Reports lower abdominal pain, upper abdominal pain. : No signs and/or symptoms were reported regarding the genitourinary system. EENT: No signs and/or symptoms were reported regarding the EENT system. Derm: Skin is pink, warm \T\ dry. Musculoskeletal: No signs and/or symptoms reported regarding the musculoskeletal system. 09:00 Reassessment: Patient appears in no apparent distress at this time. Patient and/or hb family updated on plan of care and expected duration. Pain level reassessed. Patient is alert, oriented x 3, equal unlabored respirations, skin warm/dry/pink. 09:45 Reassessment: Caity [phone]. hb Vital Signs: 07:51 BP 214 / 108; Pulse 66; Resp 17; Temp 98.1(O); Pulse Ox 98% on R/A; Weight 102.06 kg; ss Height 5 ft. 7 in. (170.18 cm); 07:51 BP 209 / 108; Pain 8/10; ss 09:00 BP 175 / 84; Pulse 62; Resp 15; Pulse Ox 96% on R/A; hb 09:55 BP 180 / 82; Pulse 63; Resp 15; Pulse Ox 97% on R/A; hb 07:51 Body Mass Index 35.24 (102.06 kg, 170.18 cm) ED Course: 07:44 Patient arrived in ED. mr 07:53 Triage completed. ss 07:53 Juan Mishra MD is Attending Physician. kdr 07:55 Arm band placed on right wrist. ss 07:56 Julia Child, RN is Primary Nurse. hb 08:43 Patient has correct armband on for positive identification. Placed in gown. Bed in low hb position. Call light in reach. Side rails up X 1. 08:43 Inserted saline lock: 24 gauge in right wrist, using aseptic technique. Blood collected.hb 08:53 CXR XRAY In Process Unspecified. EDMS 11:28 No provider procedures requiring assistance completed. Patient did not have IV access ss during this emergency room visit. Administered Medications: 08:25 Drug: Yawkey 10 mg-325 mg 1 tabs Route: PO; hb 09:15 Follow up: Response: No adverse reaction; Blood pressure is lowered hb 09:25 Follow up: Response: No adverse reaction; Pain is decreased hb 08:25 Drug: cloNIDine 0.2 mg Route: PO; hb 09:15 Follow up: Response: No adverse reaction; Blood pressure is lowered hb 09:35 Drug: Insulin Regular Human 12 units {Co-Signature: rodrigo (Julia Child RN).} Route: ss IVP; Site: right wrist; 11:34 Follow up: Response: No adverse reaction ah 10:55 Drug: Insulin Regular Human 10 units {Co-Signature: sv (Sravani Ballard RN).} Route: IVP; Site: right antecubital; 11:36 Follow up: Response: No adverse reaction ah Outcome: 11:22 Discharge ordered by . kdr 11:28 Discharged to home ambulatory. ss 11:28 Condition: good 11:28 Discharge instructions given to patient, Instructed on discharge instructions, follow up and referral plans. Demonstrated understanding of instructions, follow-up care. 11:29 Patient left the ED. 11:36 Patient left the ED. Signatures: Dispatcher [employer] EDJuan Ferreira MD MD kdr Rivera, Mary mr TseIrene, HAYLEE LEACH Julia Child RN RN hb Harris, Amy, RN RN Julia Child RN Sravani Ballard RN
--- NOTE | 2019-11-27 11:23 | EDPHYS ---
Physician Documentation [facility] Name: Wero Kwong Age: 54 yrs Sex: Male : 1965 Arrival Date: 11/27/2019 Time: 07:44 Bed 19 Private MD: ED Physician Juan Mishra HPI: 11/26 08:20 This 54 yrs old Male presents to ER via Ambulatory with complaints of kdr Shortness Of Breath. 08:20 The patient has shortness of breath at rest, with light activity. Onset: The kdr symptoms/episode began/occurred suddenly, just prior to arrival, this morning. Duration: The symptoms are continuous, and are unchanged since they started. The patient's shortness of breath is aggravated by coughing, exertion, light activity, walking, is alleviated by nothing. Associated signs and symptoms: The patient has no apparent associated signs or symptoms. Severity of symptoms: At their worst the symptoms were mild in the emergency department the symptoms are unchanged. The patient has experienced a previous episode, last week. The patient has been recently seen by a physician: The patient has been recently seen at the [facility] Emergency Department, last week. Historical: - Allergies: 07:54 Codeine; ss 07:54 Hydrocodone-Acetaminophen; ss 07:54 Morphine; ss - Home Meds: 07:55 acetazolamide 500 mg Oral cpER 1 cap 2 times per day [Active]; citalopram 20 mg tab 1 ss tab once daily [Active]; gabapentin 300 mg Oral cap 3 caps twice a day [Active]; clopidogrel 75 mg Oral tab 1 tab once daily [Active]; furosemide 40 mg Oral tab 1 tab 2 times per day [Active]; Humulin 70/30 100 unit/mL (70-30) Sub-Q susp [Active]; levetiracetam 500 mg Oral tab 1 tab 2 times per day [Active]; lisinopril 10 mg Oral tab 1 tab once daily [Active]; Novolog 100 unit/mL Sub-Q soln three times a day [Active]; simvastatin 40 mg Oral tab 1 tab once daily [Active]; spironolactone 25 mg Oral tab nightly [Active]; Toujeo SoloStar 300 unit/mL (1.5 mL) subcutaneous inpn 65 unit daily [Active]; travatan eye drops [Active]; - PMHx: 07:54 CAD; Cirrhosis; High Cholesterol; Myocardial infarction; Hypertension; kidney failure; ss dialysis (); Diabetes - IDDM; CVA; CHF; neuropathy; Seizures; - PSHx: 07:54 dialysis prot right chest; ss - Immunization history:: Adult Immunizations up to date. - Social history:: Smoking status: Patient reports the use of cigarette tobacco products, smokes one pack cigarettes per day. ROS: 08:20 Constitutional: Negative for fever, chills, and weight loss, Eyes: Negative for injury, kdr pain, redness, and discharge, Neck: Negative for injury, pain, and swelling, Cardiovascular: Negative for chest pain, palpitations, and edema, Respiratory: Negative for shortness of breath, cough, wheezing, and pleuritic chest pain, Abdomen/GI: Negative for abdominal pain, nausea, vomiting, diarrhea, and constipation, Back: Negative for injury and pain, : Negative for injury, bleeding, discharge, and swelling, Skin: Negative for injury, rash, and discoloration, Neuro: Negative for headache, weakness, numbness, tingling, and seizure activity. Psych: Negative for depression, anxiety, suicide ideation, homicidal ideation, and hallucinations, Allergy/Immunology: Negative for hives, rash, and allergies, Endocrine: Negative for neck swelling, polydipsia, polyuria, polyphagia, and marked weight changes, Hematologic/Lymphatic: Negative for swollen nodes, abnormal bleeding, and unusual bruising. Exam: 08:20 Constitutional: This is a well developed, well nourished patient who is awake, alert, kdr and in no acute distress. Head/Face: Normocephalic, atraumatic. Eyes: Pupils equal round and reactive to light, extra-ocular motions intact. Lids and lashes normal. Conjunctiva and sclera are non-icteric and not injected. Cornea within normal limits. Periorbital areas with no swelling, redness, or edema. Neck: Trachea midline, no thyromegaly or masses palpated, and no cervical lymphadenopathy. Supple, full range of motion without nuchal rigidity, or vertebral point tenderness. No Meningismus. Chest/axilla: Normal chest wall appearance and motion. Nontender with no deformity. No lesions are appreciated. Cardiovascular: Regular rate and rhythm with a normal S1 and S2. No gallops, murmurs, or rubs. Normal PMI, no JVD. No pulse deficits. Respiratory: Lungs have equal breath sounds bilaterally, clear to auscultation and percussion. No rales, rhonchi or wheezes noted. No increased work of breathing, no retractions or nasal flaring. Abdomen/GI: Soft, non-tender, with normal bowel sounds. No distension or tympany. No guarding or rebound. No evidence of tenderness throughout. Back: No spinal tenderness. No costovertebral tenderness. Full range of motion. Skin: Warm, dry with normal turgor. Normal color with no rashes, no lesions, and no evidence of cellulitis. MS/ Extremity: Pulses equal, no cyanosis. Neurovascular intact. Full, normal range of motion. Neuro: Awake and alert, GCS 15, oriented to person, place, time, and situation. Cranial nerves II-XII grossly intact. Motor strength 5/5 in all extremities. Sensory grossly intact. Cerebellar exam normal. Normal gait. Psych: Awake, alert, with orientation to person, place and time. Behavior, mood, and affect are within normal limits. Vital Signs: 07:51 BP 214 / 108; Pulse 66; Resp 17; Temp 98.1(O); Pulse Ox 98% on R/A; Weight 102.06 kg; ss Height 5 ft. 7 in. (170.18 cm); 07:51 BP 209 / 108; Pain 8/10; ss 09:00 BP 175 / 84; Pulse 62; Resp 15; Pulse Ox 96% on R/A; hb 09:55 BP 180 / 82; Pulse 63; Resp 15; Pulse Ox 97% on R/A; hb 07:51 Body Mass Index 35.24 (102.06 kg, 170.18 cm) ss MDM: 11:22 Patient medically screened. kdr 12:03 Data reviewed: vital signs, nurses notes, lab test result(s), radiologic studies. kdr Counseling: I had a detailed discussion with the patient and/or guardian regarding: the historical points, exam findings, and any diagnostic results supporting the discharge/admit diagnosis, lab results, radiology results, the need for outpatient follow up. 11/26 08:18 Order name: CBC with Diff; Complete Time: 09:16 kdr 11/26 08:18 Order name: Chem 7; Complete Time: 09:16 kdr 11/26 08:17 Order name: CXR XRAY; Complete Time: 12:04 kdr 11/26 11:00 Order name: Glucose, Ancillary Testing; Complete Time: 12:04 EDMS Administered Medications: 08:25 Drug: [place] 10 mg-325 mg 1 tabs Route: PO; hb 09:15 Follow up: Response: No adverse reaction; Blood pressure is lowered hb 09:25 Follow up: Response: No adverse reaction; Pain is decreased hb 08:25 Drug: cloNIDine 0.2 mg Route: PO; hb 09:15 Follow up: Response: No adverse reaction; Blood pressure is lowered hb 09:35 Drug: Insulin Regular Human 12 units {Co-Signature: hb (Julia Child RN).} Route: ss IVP; Site: right wrist; 11:34 Follow up: Response: No adverse reaction ah 10:55 Drug: Insulin Regular Human 10 units {Co-Signature: sv (Sravani Ballard RN).} Route: ah IVP; Site: right antecubital; 11:36 Follow up: Response: No adverse reaction Disposition: 11/27/19 11:22 Discharged to Home. Impression: Bilateral inferior Thorax Pain. - Condition is Stable. - Discharge Instructions: Nonspecific Chest Pain, [id number]. - Medication Reconciliation Form, Thank You Letter form. - Follow up: Private Physician; When: 1 - 2 days; Reason: If symptoms return, Further diagnostic work-up, Recheck today's complaints, Continuance of care, Re-evaluation by your physician. - Problem is new. - Symptoms have improved. Signatures: [facility] Juan Mishra MD MD [facility] Irene Tse RN RN Julia Child RN RN hb Harris, Amy, RN RN Julia Child RN Sravani heard Corrections: (The following items were deleted from the chart) 11:29 11:22 11/27/2019 11:22 Discharged to Home. Impression: Bilateral inferior Thorax Pain. ss Condition is Stable. Forms are Medication Reconciliation Form, Thank You Letter, Antibiotic Education, Prescription Opioid Use. Follow up: Private Physician; When: 1 - 2 days; Reason: If symptoms return, Further diagnostic work-up, Recheck today's complaints, Continuance of care, Re-evaluation by your physician. Problem is new. Symptoms have improved. kdr 11:36 11:29 11/27/2019 11:22 Discharged to Home. Impression: Bilateral inferior Thorax Pain. ah Condition is Stable. Discharge Instructions: Nonspecific Chest Pain, [id number]. Forms are Medication Reconciliation Form, Thank You Letter. Follow up: Private Physician; When: 1 - 2 days; Reason: If symptoms return, Further diagnostic work-up, Recheck today's complaints, Continuance of care, Re-evaluation by your physician. Problem is new. Symptoms have improved. ss
[2019-11-27 11:39] VITALS: TEMP 98.1
[2019-11-27 11:41] VITALS: BP 180/82; O2SAT 97
== END 2019-11-27 11:36 | disposition home or self-care (01) ==
LOC: ER 07:39
DX: M54.6 Pain in thoracic spine (principal); I12.0 Hypertensive chronic kidney disease with stage 5 chronic kidney disease or end stage renal disease; N18.6 End stage renal disease; E11.22 Type 2 diabetes mellitus with diabetic chronic kidney disease; G40.909 Epilepsy, unspecified, not intractable, without status epilepticus; E78.00 Pure hypercholesterolemia, unspecified; F17.210 Nicotine dependence, cigarettes, uncomplicated; Z79.4 Long term (current) use of insulin; Z88.5 Allergy status to narcotic agent; Z99.2 Dependence on renal dialysis
CPT/HCPCS: 36415; 71045; 80048; 82947; 85025; 99284

== ENCOUNTER 2019-12-25 19:34 | Emergency (ER) | payer OTHER ==
--- OUTSIDE RECORDS SUMMARY | 2019-12-25 19:39 | XMS REPORT | Clinical Summary ---
:1965 Author Organization [facility] Address [address] [place] [address] Care Team Providers Name Role Phone MD [...] diab etes mellitus with hyperglycemia, unspecified whether group home insulin use (HCC); Jessica Cruz MD Type 2 diabetes mellitus with hyperglyce cristóbal, without long-term current use of insulin (HCC); Jude Garciaash Essential hy pertension; D Other forms of angina pectoris (HCC) Julia Chavis MD 01/06/2019 Travel after 12/24/2018 Family History Medical History Relation Name Comments [...] 442 ms QTC Calculation(Bazett) 480 ms P [place] 29 degrees R [place] 88 degrees T [place] 27 degrees Normal sinus rhythm Right bundle [...] i n the results section . after 12/24/2018 Results RHYTHM STRIP - SCAN (01/12/2019 3:42 PM CDT) Narrative Performed At This result has an attachment that is no t available. POC-Glucose meter (01/11/2019 12:15 PM CDT)Only the most recent of31 results within the time period is included. POC-Glucose Meter 119 (H)Comment: TESTED AT 70 - 110 mg/dL [facility] [address] [facility] [id number] Specimen Blood Performing Organization Address City/State/Zipcode Phone Number [address] [phone] CENTER CBC with platelet count + automated diff (01/11/2019 5:03 AM CDT)Only the most recent of6 resultswithin the time period is included. WBC 4.1 3.5 - 10.5 K/L [facility] RBC 3.72 (L) 4.63 - 6.08 M/L [facility] Hemoglobin 11.6 (L) 13.7 - 17.5 GM/DL [facility] Hematocrit 33.6 (L) 40.1 - 51.0 % [facility] [place] MCV 90.3 79.0 - 92.2 fL [facility] [place] MCH 31.2 25.7 - 32.2 pg [facility] [place] MCHC 34.5 32.3 - 36.5 GM/DL [facility] RDW 13.7 11.6 - 14.4 % [facility] [place] Platelets 170 150 - 450 K/CU MM [facility] MPV 11.8 9.4 - 12.4 fL [facility] [place] nRBC 0 0 - 0 /100 WBC [facility] [place] % Neutros 53 % [facility] [place] % Lymphs 32 % [facility] [place] % Monos 7 % [facility] [place] % Eos 6 % [facility] [place] % Baso 1 % [facility] [place] # Neutros 2.17 1.78 - 5.38 K/L [facility] # Lymphs 1.31 (L) 1.32 - 3.57 K/L [facility] # Monos 0.29 (L) 0.30 - 0.82 K/L [facility] # Eos 0.26 0.04 - 0.54 K/L [facility] # Baso 0.03 0.01 - 0.08 K/L [facility] Immature Granulocytes-Relative 1 0 - 1 % C HI [facility] Specimen Blood Performing Organization Address City/State/Zipcode Phone Number [facility] [address] [place] [address] [place] Basic Metabolic Panel (01/11/2019 5:03 AM CDT)Only the most recent of6 results within the time period is included. Sodium 139 136 - 145 meq/L [facility] Potassium 4.5 3.5 - 5.1 meq/L [facility] Chloride 109 (H) 98 - 107 meq/L [facility] CO2 23 22 - 29 meq/L [facility] BUN 30 (H) 7 - 21 mg/dL [facility] Creatinine 1.87 (H) 0.57 - 1.25 mg/dL [facility] Glucose 219 (H) 70 - 105 mg/dL [facility] Calcium 8.9 8.4 - 10.2 mg/dL [facility] EGFR 38Comment: ESTIMATED GFR IS mL/min/1.73 sq m [facility] NOT ACCURATE CREATININE [facility] CLEARANCE IN PREDICTING GLOMERULAR FILTRATION RATE. ESTIMATED GFR IS NOT APPLICABLE FOR DIALYSIS PATIENTS. Specimen Blood Performing Organization Address City/State/Zipcode Phone Number [facility] [address] [place] [address] brain without IV contrast (01/10/2019 11:31 AM CDT)Only the most recent of2 resultswithin the time period is included. Specimen Narrative Performed At FINAL REPORT [facility] CT, BRAIN, WITHOUT CONTRAST INDICATION: Subdural [...] 4:47:25 Performing Organization Address City/State/Zipcode Phone Number [facility] CT chest without IV contrast (01/10/2019 11:31 AM CDT) Specimen Narrative Performed At FINAL REPORT [facility] TECHNIQUE: CT scan of the chest WITHOUT [...] MD Report Verified Date/Time:01/10/2019 18:24:57 Reading Location: [facility] B1 C013Y CT Body R eading Room [...] Verified Date/Time: 01/10/2019 1 8:24:57 Reading Location: [facility] B1 C013Y CT Body R eading Room Performing Organization Address City/State/Zipcode Phone Number [facility] D-dimer (01/10/2019 11:00 AM CDT) D-Dimer, Quant 2.14 (H) <0.50 MG/L FEU [facility] Specimen Blood Narrative Performed At Intended Use: The D-Dimer Assay can be used [facility] to aid in the diagnosis of Deep Vein Thrombosis (DVT) and Pulmonary Embolism Disease (PED). In patients with low pre-test probability, various studies concerning STA Liatest D-dimer test have reported that with a cutoff value of 0.50 MG/L FEU, the Negative Predictive Value (NPV) regarding the exclusion of thrombosis is within 95-100% range. Performing Organization Address City/State/Zipcode Phone Number [address] [address] CENTER XR chest 1 view portable / bedside (01/10/2019 7:16 AM CDT)Only the most recent of2 resultswithin the time period is included. Specimen Narrative Performed At FINAL REPORT [facility] Chest, AP view. History: Chest pain. Comparison: 01/06/2019. Discussion:The cardiomediastinal maria luz houette and pulmonary vasculature are within normal limits. Th e lungs are clear without evidence of consolidation or effusion. There are no acute osseous abnormalities. The soft tissues are unre markable. IMPRESSION: No acute cardiopulmonary abnormality. Signed: Britney Schwab MD Report Verified Date/Time:01/10/2019 08:17:19 Reading Location: [facility] C013 Ortho Con sult Reading Room Procedure [...] Verified Date/Time: 01/10/2019 0 8:17:19 Reading Location: [facility] C013X Ortho Con sult Reading Room Performing Organization Address City/State/Zipcode Phone Number [facility] ECG 12 lead (01/10/2019 6:30 AM CDT)Only the most recent of5 resultswithin the time period is included. Specimen Narrative Performed At Ventricular Rate 77 BPM GE MUSE Atrial Rate 77 BPM P-R Interval 138 ms QRS Duration 144 ms Q-T Interval 442 ms QTC Calculation(Bazett) 500 ms P [place] 30 degrees R [place] 41 degrees T [place] 30 degrees Normal sinus rhythm Limb lead [...] 442 ms QTC Calculation(Bazett) 500 ms P [place] 30 degrees R [place] 41 degrees T [place] 30 degrees Normal sinus rhythm Limb lead misplacement Right bundle branch block Nonspecific T wave abnormality Prolonged QT Abnormal ECG When compared with ECG of 10-JAN-2019 06 :01, Limb leads are now misplaced Confirmed by MD COOK YOCHAI ([id number]) on 01/12/2019 2:04:04 PM Performing Organization Address City/[facility] Phone Number [facility] Troponin I (01/10/2019 6:11 AM CDT)Only the most recent of7 resultswithin the time period is included. Troponin I 0.02 0.00 - 0.03 ng/mL [facility] Specimen Blood Narrative Performed At Troponin I (TnI) levels must be interpreted [facility] in the context of the [...] tachyarrhythmia. Performing Organization Address City/State/Zipcode Phone Number [address] [address] CENTER B-type Natriuretic Factor (BNP) (01/10/2019 6:11 AM CDT)Only the most recent of 2 resultswithin the time period is included. BNP 130 (H) 0 - 100 pg/mL [facility] Specimen Blood Performing Organization Address City/[facility]/Zipcode Phone Number [address] [address] CENTER aPTT (01/09/2019 4:35 AM CDT)Only the most recent of8 resultswithin the time period is included. PTT 35.0 22.5 - 36.0 seconds [facility] Specimen Blood Performing Organization Address [facility] Phone Number [address] [address] [place] ECHOCARDIOGRAM REPORT - SCAN (01/08/2019 9:20 PM CDT) Narrative Performed At This result has an attachment that is no t available. PT/aPTT (01/08/2019 4:03 PM CDT) Protime 13.4 11.9 - 14.2 seconds [facility] INR 1.1 <=5.9 [facility] PTT 32.0 22.5 - 36.0 seconds [facility] Specimen Blood Narrative Performed At Effective 09/23/2018: PT Reference Range [facility] Change New: 11.9-14.2Previous: 11.7-14.7 RECOMMENDED COUMADIN/WARFARIN INR THERAPY RANGES STANDARD DOSE: 2.0-3.0Includes: PROPHYLAXIS for venous thrombosis, systemic embolization; TREATMENT for venous thrombosis and/or pulmonary embolus. HIGH RISK: Target INR is 2.5-3.5 for patients wiht mechanical heart valves. 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 Fragoso [facility] Fish Flipper Tori Hillspreting Willard Healy PhysicianMD Procedure Type [...] MAGED BOND Gen carmine Male Visit Number [id number] Rac e Unknown [facility] Number [id number] Number Date of 1965 Ref erring Yvette Mccullough Shona Mckenzie Age 53 year(s) Son nav Fragoso RDCS Fish Flipper Tori Chaudhari erpreting Shona Whitmore MD Procedure [...] T CI: 2.47 l/min/m^2 Performing Organization Address City/[facility] Phone Number [facility] ECHO HEARTLAB MKCKESSON CPACS Phosphorus (01/07/2019 6:01 AM CDT) Phosphorus 2.5 2.3 - 4.7 mg/dL [facility] Specimen Blood Narrative Performed At Once on admission and Daily AM afterward s [facility] Once on admission and Daily AM afterward s Once on admission and Daily AM afterwards Performing Organization Address City/State/Zipcode Phone Number [facility] [address] [place] [address] CENTER Magnesium (01/07/2019 6:01 AM CDT) Magnesium 2.2 1.6 - 2.6 mg/dL [facility] Specimen Blood Narrative Performed At Once on admission and Daily AM afterward s [facility] Once on admission and Daily AM afterward s Once on admission and Daily AM afterwards Performing Organization Address [facility] Phone Number [address] [address] [place] Prothrombin time/INR (01/06/2019 7:15 PM CDT) Protime 11.4 (L) 11.9 - 14.2 seconds [facility] INR 0.9 <=5.9 [facility] Specimen Blood Narrative Performed At Effective 09/23/2018: PT Reference Range [facility] Change New: 11.9-14.2Previous: 11.7-14.7 RECOMMENDED COUMADIN/WARFARIN INR THERAPY RANGES STANDARD DOSE: 2.0-3.0Includes: PROPHYLAXIS for venous thrombosis, systemic embolization; TREATMENT for venous thrombosis and/or pulmonary embolus. HIGH RISK: Target INR is 2.5-3.5 for patients wiht mechanical heart valves. Performing Organization Address [facility] Phone Number [address] [address] [place] Hemoglobin A1c (01/06/2019 7:15 PM CDT) Hemoglobin A1C 11.9 (H) 4.3 - 6.1 % [facility] Specimen Blood Performing Organization Address [facility] Phone Number [address] [address] [place] Hepatic function panel (01/06/2019 7:15 PM CDT) Protein, Total 6.3Comment: Specimen 6.0 - 8.3 gm/dL [facility] slightly hemolyzed [facility] Albumin 2.8 (L)Comment: Specimen 3.5 - 5.0 g/dL [facility] slightly hemolyzed [facility] Total Bilirubin 0.4Comment: Specimen 0.2 - 1.2 mg/dL [facility] slightly hemolyzed [facility] Bilirubin, Direct 0.1Comment: Specimen 0.1 - 0.5 mg/dL [facility] slightly hemolyzed [facility] Alkaline Phosphatase 104 40 - 150 U/L [facility] AST 29Comment: Specimen 5 - 34 U/L [facility] slightly hemolyzed [facility] ALT 23Comment: Specimen 6 - 55 U/L [facility] slightly hemolyzed [facility] Specimen Blood Narrative Performed At Specimen moderately lipemic [facility] Performing Organization Address City/State/Zipcode Phone Number [facility] [address] [place] [address] CENTER after 12/24/2018 Advance Directives For more information, please contact:[address] [phone] Code Status Date Activated Date Inactivated Comments Full Code 01/06/2019 5:51 PM 01/11/2019 7:13 PM This code status was determined by: Patient
--- OUTSIDE RECORDS SUMMARY | 2019-12-25 19:39 | XMS REPORT | Clinical Summary ---
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 DOUBLE-STRANDED DNA Routine 07/07/2019 2:30 Resu lts for this (DSDNA) ANTIBODIES, PM CDT procedur e are in CRITH[place] the results section. CENTROMERE ANTIBODY Routine 07/07/2019 [...] DOPPLER AM CDT procedur e are in (89169) the results section. POC GLUCOSE Routine 07/05/2019 [...] Routine 07/03/2019 9:52 Results for this PM [employer] procedure are i n the results section. POC GLUCOSE Routine 07/03/2019 4:16 Results for this [employer] procedure are i n the results section. POC GLUCOSE Routine 07/03/2019 12:31 Results for this PM [employer] procedure are i n the results section. POC GLUCOSE Routine 07/03/2019 11:50 Results for this AM [employer] procedure are i n the results section. POC GLUCOSE Routine 07/03/2019 7:48 Results for this AM [employer] procedure are i n the results section. ESTIMATED GFR Routine 07/03/2019 4:00 Results fo r this AM [employer] procedure are i n the results section. VANCOMYCIN LEVEL, RANDOM Routine 07/03/2019 4:00 Results for this AM [employer] procedure are i n the results section. PHOSPHORUS LEVEL Routine 07/03/2019 4:00 Results for this AM [employer] procedure are i n the results section. MAGNESIUM LEVEL Routine 07/03/2019 4:00 Results for this AM [employer] procedure are i n the results section. BASIC METABOLIC PANEL Routine 07/03/2019 4:00 Re sults for this AM [employer] procedure are i n the results section. POC GLUCOSE Routine 07/02/2019 9:29 Results for this PM [employer] procedure are i n the results section. POC GLUCOSE Routine 07/02/2019 6:48 Results for this PM [employer] procedure are i n the results section. ESTIMATED GFR Routine 07/02/2019 4:05 Results fo r this PM [employer] procedure are i n the results section. BASIC METABOLIC PANEL Routine 07/02/2019 4:05 Re sults for this PM [employer] procedure are i n the results section. POC GLUCOSE Routine 07/02/2019 4:03 Results for this [employer] procedure are i n the results section. VENIPUNC NEED PHYS Routine 07/02/2019 2:59 Resul ts for this SKILL,DX OR RX PM [employer] procedure are in the results section. POC GLUCOSE Routine 07/02/2019 11:52 Results for this [employer] procedure are i n the results section. POC GLUCOSE Routine 07/02/2019 8:44 Results for this AM [employer] procedure are i n the results section. ESTIMATED GFR Routine 07/02/2019 4:00 Results fo r this [employer] procedure are i n the results section. PHOSPHORUS LEVEL Routine 07/02/2019 4:00 Results for this AM [employer] procedure are i n the results section. MAGNESIUM LEVEL Routine 07/02/2019 4:00 Results for this AM [employer] procedure are i n the results section. BASIC METABOLIC PANEL Routine 07/02/2019 4:00 Re sults for this AM [employer] procedure are i n the results section. VANCOMYCIN LEVEL, RANDOM Routine 07/02/2019 4:00 Results for this AM [employer] procedure are i n the results section. POC GLUCOSE Routine 07/01/2019 9:39 Results for this PM [employer] procedure are i n the results section. POC GLUCOSE Routine 07/01/2019 5:04 Results for this [employer] procedure are i n the results section. VANCOMYCIN LEVEL, TROUGH Timed 07/01/2019 2:30 Results for this PM [employer] procedure are i n the results section. POC GLUCOSE Routine 07/01/2019 12:20 Results for this [employer] procedure are i n the results section. POC GLUCOSE Routine 07/01/2019 8:33 Results for this AM [employer] procedure are i n the results section. POC GLUCOSE Routine 07/01/2019 4:13 Results for this [employer] procedure are i n the results section. ESTIMATED GFR Routine 07/01/2019 4:00 Results fo r this [employer] procedure are i n the results section. HEPATIC FUNCTION PANEL Routine 07/01/2019 4:00 R esults for this AM [employer] procedure are i n the results section. PHOSPHORUS LEVEL Routine 07/01/2019 4:00 Results for this [employer] procedure are i n the results section. MAGNESIUM LEVEL Routine 07/01/2019 4:00 Results for this [employer] procedure are i n the results section. BASIC METABOLIC PANEL Routine 07/01/2019 4:00 Re sults for this AM [employer] procedure are i n the results section. POC GLUCOSE Routine 06/30/2019 11:36 Results for this PM [employer] procedure are i n the results section. POC GLUCOSE Routine 06/30/2019 9:09 Results for this PM [employer] procedure are i n the results section. POC GLUCOSE Routine 06/30/2019 5:15 Results for this [employer] procedure are i n the results section. POC GLUCOSE Routine 06/30/2019 2:40 Results for this PM [employer] procedure are i n the results section. POC GLUCOSE Routine 06/30/2019 11:58 Results for this [employer] procedure are i n the results section. SURGICAL PATHOLOGY Routine 06/30/2019 11:36 Resul ts for this REQUEST AM [employer] procedure are i n the results section. POC GLUCOSE Routine 06/30/2019 10:00 Results for this [employer] procedure are i n the results section. IR TRANSJUGULAR LIVER Routine 06/30/2019 9:39 Re sults for this BIOPSY [employer] procedure are i n the results section. ESTIMATED GFR Routine 06/30/2019 4:03 Results fo r this [employer] procedure are i n the results section. VANCOMYCIN LEVEL, RANDOM Routine 06/30/2019 4:03 Results for this AM [employer] procedure are i n the results section. HEPATIC FUNCTION PANEL Routine 06/30/2019 4:03 R esults for this AM [employer] procedure are i n the results section. PHOSPHORUS LEVEL Routine 06/30/2019 4:03 Results for this AM [employer] procedure are i n the results section. MAGNESIUM LEVEL Routine 06/30/2019 4:03 Results for this AM [employer] procedure are i n the results section. BASIC METABOLIC PANEL Routine 06/30/2019 4:03 Re sults for this AM [employer] procedure are i n the results section. POC GLUCOSE Routine 06/29/2019 9:21 Results for this PM [employer] procedure are i n the results section. POC GLUCOSE Routine 06/29/2019 4:06 Results for this [employer] procedure are i n the results section. POC GLUCOSE Routine 06/29/2019 12:30 Results for this [employer] procedure are i n the results section. POC GLUCOSE Routine 06/29/2019 8:25 Results for this [employer] procedure are i n the results section. ESTIMATED GFR Routine 06/29/2019 4:54 Results fo r this [employer] procedure are i n the results section. HEPATIC FUNCTION PANEL Routine 06/29/2019 4:54 R esults for this AM [employer] procedure are i n the results section. VANCOMYCIN LEVEL, RANDOM Routine 06/29/2019 4:54 Results for this [employer] procedure are i n the results section. HC COMPLETE BLD COUNT Routine 06/29/2019 4:54 Re sults for this W/AUTO DIFF AM [employer] procedure are i n the results section. PHOSPHORUS LEVEL Routine 06/29/2019 4:54 Results for this [employer] procedure are i n the results section. MAGNESIUM LEVEL Routine 06/29/2019 4:54 Results for this [employer] procedure are i n the results section. BASIC METABOLIC PANEL Routine 06/29/2019 4:54 Re sults for this AM [employer] procedure are i n the results section. POC GLUCOSE Routine 06/28/2019 8:33 Results for this PM [employer] procedure are i n the results section. POC GLUCOSE Routine 06/28/2019 4:06 Results for this PM [employer] procedure are i n the results section. POC GLUCOSE Routine 06/28/2019 12:29 Results for this [employer] procedure are i n the results section. HEPATIC FUNCTION PANEL Routine 06/28/2019 12:23 R esults for this [employer] procedure are i n the results section. ECG 12-LEAD STAT 06/28/2019 9:41 Results for this [employer] procedure are i n the results section. POC GLUCOSE Routine 06/28/2019 9:14 Results for this [employer] procedure are i n the results section. HEPATIC FUNCTION PANEL Timed 06/28/2019 9:13 R esults for this AM [employer] procedure are i n the results section. TROPONIN Timed 06/28/2019 9:13 Results for this [employer] procedure are i n the results section. ESTIMATED GFR Routine 06/28/2019 5:22 Results fo r this [employer] procedure are i n the results section. VANCOMYCIN LEVEL, RANDOM Routine 06/28/2019 5:22 Results for this [employer] procedure are i n the results section. PHOSPHORUS LEVEL Routine 06/28/2019 5:22 Results for this [employer] procedure are i n the results section. MAGNESIUM LEVEL Routine 06/28/2019 5:22 Results for this [employer] procedure are i n the results section. BASIC METABOLIC PANEL Routine 06/28/2019 5:22 Re sults for this [employer] procedure are i n the results section. POC GLUCOSE Routine 06/27/2019 9:03 Results for this PM [employer] procedure are i n the results section. POC GLUCOSE Routine 06/27/2019 5:04 Results for this [employer] procedure are i n the results section. POC GLUCOSE Routine 06/27/2019 2:07 Results for this [employer] procedure are i n the results section. POC GLUCOSE Routine 06/27/2019 11:57 Results for this [employer] procedure are i n the results section. POC GLUCOSE Routine 06/27/2019 8:26 Results for this [employer] procedure are i n the results section. ECG 12-LEAD Routine 06/27/2019 8:13 Results for this [employer] procedure are i n the results section. ESTIMATED GFR Routine 06/27/2019 5:14 Results fo r this [employer] procedure are i n the results section. VANCOMYCIN LEVEL, RANDOM Routine 06/27/2019 5:14 Results for this [employer] procedure are i n the results section. PHOSPHORUS LEVEL Routine 06/27/2019 5:14 Results for this [employer] procedure are i n the results section. MAGNESIUM LEVEL Routine 06/27/2019 5:14 Results for this AM [employer] procedure are i n the results section. BASIC METABOLIC PANEL Routine 06/27/2019 5:14 Re sults for this AM [employer] procedure are i n the results section. POC GLUCOSE Routine 06/26/2019 9:21 Results for this PM [employer] procedure are i n the results section. POC GLUCOSE Routine 06/26/2019 7:41 Results for this [employer] procedure are i n the results section. POC GLUCOSE Routine 06/26/2019 7:12 Results for this [employer] procedure are i n the results section. ULTRAFILTRATION Routine 06/26/2019 1:39 PM [employer] POC GLUCOSE Routine 06/26/2019 12:05 Results for this [employer] procedure are i n the results section. POC GLUCOSE Routine 06/26/2019 8:54 Results for this [employer] procedure are i n the results section. ESTIMATED GFR Routine 06/26/2019 6:25 Results fo r this [employer] procedure are i n the results section. VANCOMYCIN LEVEL, RANDOM Routine 06/26/2019 6:25 Results for this [employer] procedure are i n the results section. HC COMPLETE BLD COUNT Routine 06/26/2019 6:25 Re sults for this W/AUTO DIFF AM [employer] procedure are i n the results section. PHOSPHORUS LEVEL Routine 06/26/2019 6:25 Results for this [employer] procedure are i n the results section. MAGNESIUM LEVEL Routine 06/26/2019 6:25 Results for this [employer] procedure are i n the results section. BASIC METABOLIC PANEL Routine 06/26/2019 6:25 Re sults for this [employer] procedure are i n the results section. POC GLUCOSE Routine 06/25/2019 11:39 Results for this [employer] procedure are i n the results section. HEMODIALYSIS Routine 06/25/2019 9:44 [employer] POC GLUCOSE Routine 06/25/2019 9:14 Results for this [employer] procedure are i n the results section. ESTIMATED GFR Routine 06/25/2019 6:45 Results fo r this [employer] procedure are i n the results section. PHOSPHORUS LEVEL Routine 06/25/2019 6:45 Results for this [employer] procedure are i n the results section. BASIC METABOLIC PANEL Routine 06/25/2019 6:45 Re sults for this [employer] procedure are i n the results section. POC GLUCOSE Routine 06/25/2019 3:45 Results for this [employer] procedure are i n the results section. POC GLUCOSE Routine 06/25/2019 11:30 Results for this [employer] procedure are i n the results section. POC GLUCOSE Routine 06/25/2019 7:47 Results for this [employer] procedure are i n the results section. POC GLUCOSE Routine 06/25/2019 12:05 Results for this [employer] procedure are i n the results section. POC GLUCOSE Routine 06/24/2019 9:12 Results for this PM [employer] procedure are i n the results section. POC GLUCOSE Routine 06/24/2019 4:22 Results for this [employer] procedure are i n the results section. POC GLUCOSE Routine 06/24/2019 1:17 Results for this [employer] procedure are i n the results section. HEMODIALYSIS Routine 06/24/2019 11:11 [employer] POC GLUCOSE Routine 06/24/2019 7:35 Results for this [employer] procedure are i n the results section. ESTIMATED GFR Routine 06/24/2019 4:00 Results fo r this [employer] procedure are i n the results section. HC COMPLETE BLD COUNT Routine 06/24/2019 4:00 Re sults for this W/AUTO DIFF [employer] procedure are i n the results section. HEPATIC FUNCTION PANEL Routine 06/24/2019 4:00 R esults for this [employer] procedure are i n the results section. PHOSPHORUS LEVEL Routine 06/24/2019 4:00 Results for this [employer] procedure are i n the results section. MAGNESIUM LEVEL Routine 06/24/2019 4:00 Results for this [employer] procedure are i n the results section. BASIC METABOLIC PANEL Routine 06/24/2019 4:00 Re sults for this [employer] procedure are i n the results section. POC GLUCOSE Routine 06/23/2019 6:00 Results for this PM [employer] procedure are i n the results section. HEMODIALYSIS Routine 06/23/2019 12:21 [employer] POC GLUCOSE Routine 06/23/2019 11:18 Results for this [employer] procedure are i n the results section. IR TUNNELED DIALYSIS Routine 06/23/2019 10:03 Res ults for this CATHETER PLACEMENT [employer] procedure are in the results section. POC GLUCOSE Routine 06/23/2019 9:54 Results for this [employer] procedure are i n the results section. POC GLUCOSE Routine 06/23/2019 8:19 Results for this [employer] procedure are i n the results section. ESTIMATED GFR Routine 06/23/2019 5:30 Results fo r this [employer] procedure are i n the results section. HC COMPLETE BLD COUNT Routine 06/23/2019 5:30 Re sults for this W/AUTO DIFF [employer] procedure are i n the results section. HEPATIC FUNCTION PANEL Routine 06/23/2019 5:30 R esults for this [employer] procedure are i n the results section. PHOSPHORUS LEVEL Routine 06/23/2019 5:30 Results for this [employer] procedure are i n the results section. MAGNESIUM LEVEL Routine 06/23/2019 5:30 Results for this [employer] procedure are i n the results section. BASIC METABOLIC PANEL Routine 06/23/2019 5:30 Re sults for this [employer] procedure are i n the results section. POC GLUCOSE Routine 06/22/2019 9:30 Results for this [employer] procedure are i n the results section. POC GLUCOSE Routine 06/22/2019 12:28 Results for this [employer] procedure are i n the results section. POC GLUCOSE Routine 06/22/2019 8:38 Results for this [employer] procedure are i n the results section. ESTIMATED GFR Routine 06/22/2019 4:30 Results fo r this [employer] procedure are i n the results section. HEPATIC FUNCTION PANEL Routine 06/22/2019 4:30 R esults for this [employer] procedure are i n the results section. HC COMPLETE BLD COUNT Routine 06/22/2019 4:30 Re sults for this W/AUTO DIFF [employer] procedure are i n the results section. PHOSPHORUS LEVEL Routine 06/22/2019 4:30 Results for this [employer] procedure are i n the results section. MAGNESIUM LEVEL Routine 06/22/2019 4:30 Results for this [employer] procedure are i n the results section. BASIC METABOLIC PANEL Routine 06/22/2019 4:30 Re sults for this [employer] procedure are i n the results section. POC GLUCOSE Routine 06/22/2019 12:07 Results for this [employer] procedure are i n the results section. POC GLUCOSE Routine 06/21/2019 9:03 Results for this PM [employer] procedure are i n the results section. POC GLUCOSE Routine 06/21/2019 7:26 Results for this [employer] procedure are i n the results section. POC GLUCOSE Routine 06/21/2019 4:33 Results for this [employer] procedure are i n the results section. XR ABDOMEN 1 VW PORTABLE Routine 06/21/2019 4:08 Results for this [employer] procedure are i n the results section. POC GLUCOSE Routine 06/21/2019 11:46 Results for this [employer] procedure are i n the results section. POC GLUCOSE Routine 06/21/2019 8:15 Results for this [employer] procedure are i n the results section. ESTIMATED GFR Routine 06/21/2019 4:00 Results fo r this [employer] procedure are i n the results section. PHOSPHORUS LEVEL Routine 06/21/2019 4:00 Results for this [employer] procedure are i n the results section. MAGNESIUM LEVEL Routine 06/21/2019 4:00 Results for this [employer] procedure are i n the results section. BASIC METABOLIC PANEL Routine 06/21/2019 4:00 Re sults for this [employer] procedure are i n the results section. POC GLUCOSE Routine 06/20/2019 9:33 Results for this [employer] procedure are i n the results section. GRAM STAIN Routine 06/20/2019 5:32 Results for this [employer] procedure are i n the results section. AEROBIC CULTURE Routine 06/20/2019 5:32 Results for this [employer] procedure are i n the results section. POC GLUCOSE Routine 06/20/2019 3:51 Results for this [employer] procedure are i n the results section. POC GLUCOSE Routine 06/20/2019 12:25 Results for this [employer] procedure are i n the results section. POC GLUCOSE Routine 06/20/2019 7:34 Results for this [employer] procedure are i n the results section. ESTIMATED GFR Routine 06/20/2019 4:00 Results fo r this [employer] procedure are i n the results section. PHOSPHORUS LEVEL Routine 06/20/2019 4:00 Results for this [employer] procedure are i n the results section. MAGNESIUM LEVEL Routine 06/20/2019 4:00 Results for this [employer] procedure are i n the results section. BASIC METABOLIC PANEL Routine 06/20/2019 4:00 Re sults for this [employer] procedure are i n the results section. HEPATIC FUNCTION PANEL Routine 06/20/2019 4:00 R esults for this [employer] procedure are i n the results section. POC GLUCOSE Routine 06/19/2019 9:31 Results for this [employer] procedure are i n the results section. PROTEIN, URINE, RANDOM Routine 06/19/2019 7:06 R esults for this [employer] procedure are i n the results section. CREATININE LEVEL, URINE, Routine 06/19/2019 7:06 Results for this RANDOM [employer] procedure are i n the results section. POC GLUCOSE Routine 06/19/2019 4:08 Results for this [employer] procedure are i n the results section. POC GLUCOSE Routine 06/19/2019 12:34 Results for this [employer] procedure are i n the results section. POC GLUCOSE Routine 06/19/2019 7:42 Results for this [employer] procedure are i n the results section. ESTIMATED GFR Routine 06/19/2019 12:00 Results fo r this [employer] procedure are i n the results section. PHOSPHORUS LEVEL Routine 06/19/2019 12:00 Results for this [employer] procedure are i n the results section. MAGNESIUM LEVEL Routine 06/19/2019 12:00 Results for this [employer] procedure are i n the results section. BASIC METABOLIC PANEL Routine 06/19/2019 12:00 Re sults for this [employer] procedure are i n the results section. HEPATIC FUNCTION PANEL Routine 06/19/2019 12:00 R esults for this [employer] procedure are i n the results section. ANTI MITOCHONDRIA SCREEN Routine 06/19/2019 12:00 Results for this [employer] procedure are i n the results section. ANTI SMOOTH MUSCLE AB Routine 06/19/2019 12:00 Re sults for this SCREEN [employer] procedure are i n the results section. POC GLUCOSE Routine 06/18/2019 9:10 Results for this [employer] procedure are i n the results section. POC GLUCOSE Routine 06/18/2019 4:07 Results for this [employer] procedure are i n the results section. POC GLUCOSE Routine 06/18/2019 11:14 Results for this [employer] procedure are i n the results section. POC GLUCOSE Routine 06/18/2019 7:29 Results for this [employer] procedure are i n the results section. URINE CULTURE Routine 06/18/2019 7:24 Results fo r this [employer] procedure are i n the results section. URINALYSIS SCREEN AND Routine 06/18/2019 5:30 Re sults for this MICROSCOPY, WITH REFLEX [employer] proc edure are in TO CULTURE the results section. AMMONIA LEVEL Routine 06/18/2019 5:00 Results fo r this [employer] procedure are i n the results section. HEPATITIS B SURFACE AB, Routine 06/18/2019 5:00 Results for this QUANTITATIVE [employer] procedure are i n the results section. HC COMPLETE BLD COUNT Routine 06/18/2019 5:00 Re sults for this W/AUTO DIFF [employer] procedure are i n the results section. PROTHROMBIN TIME WITH Routine 06/18/2019 5:00 Re sults for this INR [employer] procedure are i n the results section. ESTIMATED GFR Routine 06/18/2019 4:00 Results fo r this [employer] procedure are i n the results section. GGT Routine 06/18/2019 4:00 Results for this [employer] procedure are i n the results section. ANNE Routine 06/18/2019 4:00 Results for this [employer] procedure are i n the results section. ALPHA-1 ANTITRYPSIN Routine 06/18/2019 4:00 Resu lts for this LEVEL [employer] procedure are i n the results section. ALPHA FETOPROTEIN Routine 06/18/2019 4:00 Result s for this [employer] procedure are i n the results section. CERULOPLASMIN LEVEL Routine 06/18/2019 4:00 Resu lts for this [employer] procedure are i n the results section. HEPATITIS C ANTIBODY Routine 06/18/2019 4:00 Res ults for this [employer] procedure are i n the results section. HEPATITIS B SURFACE Routine 06/18/2019 4:00 Resu lts for this ANTIGEN [employer] procedure are i n the results section. HEPATITIS B SURFACE Routine 06/18/2019 4:00 Resu lts for this ANTIBODY [employer] procedure are i n the results section. HEPATITIS B CORE Routine 06/18/2019 4:00 Results for this ANTIBODY TOTAL [employer] procedure are in the results section. HEPATITIS B CORE Routine 06/18/2019 4:00 Results for this ANTIBODY IGM [employer] procedure are i n the results section. HEPATITIS A ANTIBODY IGM Routine 06/18/2019 4:00 Results for this [employer] procedure are i n the results section. PHOSPHORUS LEVEL Routine 06/18/2019 4:00 Results for this [employer] procedure are i n the results section. MAGNESIUM LEVEL Routine 06/18/2019 4:00 Results for this [employer] procedure are i n the results section. BASIC METABOLIC PANEL Routine 06/18/2019 4:00 Re sults for this [employer] procedure are i n the results section. HEPATIC FUNCTION PANEL Routine 06/18/2019 4:00 R esults for this [employer] procedure are i n the results section. POC GLUCOSE Routine 06/17/2019 9:17 Results for this [employer] procedure are i n the results section. POC GLUCOSE Routine 06/17/2019 5:07 Results for this [employer] procedure are i n the results section. US ABDOMEN COMPLETE Routine 06/17/2019 4:48 Resu lts for this PM [employer] procedure are i n the results section. US ABDOMINAL DOPPLER Routine 06/17/2019 4:48 Res ults for this [employer] procedure are i n the results section. US RENAL Routine 06/17/2019 2:26 Results for this [employer] procedure are i n the results section. POC GLUCOSE Routine 06/17/2019 11:38 Results for this AM [employer] procedure are i n the results section. POC GLUCOSE Routine 06/17/2019 8:22 Results for this [employer] procedure are i n the results section. TISSUE TRANSGLUTAMINASE Routine 06/17/2019 4:53 Results for this AB, IGA AM [employer] procedure are i n the results section. ESTIMATED GFR Routine 06/17/2019 4:53 Results fo r this AM [employer] procedure are i n the results section. PHOSPHORUS LEVEL Routine 06/17/2019 4:53 Results for this AM [employer] procedure are i n the results section. MAGNESIUM LEVEL Routine 06/17/2019 4:53 Results for this AM [employer] procedure are i n the results section. BASIC METABOLIC PANEL Routine 06/17/2019 4:53 Re sults for this AM [employer] procedure are i n the results section. CELIAC DISEASE REFLEXIVE Routine 06/17/2019 4:53 Results for this CASCADE AM [employer] procedure are i n the results section. POC GLUCOSE Routine 06/17/2019 12:44 Results for this AM [employer] procedure are i n the results section. POC GLUCOSE Routine 06/16/2019 9:02 Results for this [employer] procedure are i n the results section. POC GLUCOSE Routine 06/16/2019 4:27 Results for this [employer] procedure are i n the results section. POC GLUCOSE Routine 06/16/2019 12:07 Results for this [employer] procedure are i n the results section. ECG 12-LEAD Routine 06/16/2019 11:18 Results for this [employer] procedure are i n the results section. POC GLUCOSE Routine 06/16/2019 7:25 Results for this AM [employer] procedure are i n the results section. ESTIMATED GFR Routine 06/16/2019 4:00 Results fo r this AM [employer] procedure are i n the results section. PHOSPHORUS LEVEL Routine 06/16/2019 4:00 Results for this AM [employer] procedure are i n the results section. MAGNESIUM LEVEL Routine 06/16/2019 4:00 Results for this [employer] procedure are i n the results section. BASIC METABOLIC PANEL Routine 06/16/2019 4:00 Re sults for this AM [employer] procedure are i n the results section. POC GLUCOSE Routine 06/15/2019 8:49 Results for this [employer] procedure are i n the results section. POC GLUCOSE Routine 06/15/2019 4:31 Results for this [employer] procedure are i n the results section. FECAL CALPROTECTIN Routine 06/15/2019 4:30 Resul ts for this [employer] procedure are i n the results section. SPIROMETRY, DIFFUSION, Routine 06/15/2019 2:29 Tachycardia R esults for this LUNG VOLUMES PM [employer] procedure are i n the results section. POC GLUCOSE Routine 06/15/2019 12:27 Results for this [employer] procedure are i n the results section. US CAROTID DUPLEX Routine 06/15/2019 11:31 Result s for this BILATERAL AM [employer] procedure are i n the results section. POC GLUCOSE Routine 06/15/2019 7:24 Results for this [employer] procedure are i n the results section. ESTIMATED GFR Routine 06/15/2019 3:38 Results fo r this AM [employer] procedure are i n the results section. PHOSPHORUS LEVEL Routine 06/15/2019 3:38 Results for this AM [employer] procedure are i n the results section. MAGNESIUM LEVEL Routine 06/15/2019 3:38 Results for this [employer] procedure are i n the results section. BASIC METABOLIC PANEL Routine 06/15/2019 3:38 Re sults for this [employer] procedure are i n the results section. HC COMPLETE BLD COUNT Routine 06/15/2019 3:38 Re sults for this W/AUTO DIFF AM [employer] procedure are i n the results section. POC GLUCOSE Routine 06/14/2019 9:02 Results for this [employer] procedure are i n the results section. CT HEAD WO CONTRAST STAT 06/14/2019 8:31 Resu lts for this [employer] procedure are i n the results section. POC GLUCOSE Routine 06/14/2019 4:31 Results for this [employer] procedure are i n the results section. POC GLUCOSE Routine 06/14/2019 3:36 Results for this [employer] procedure are i n the results section. POC GLUCOSE Routine 06/14/2019 12:06 Results for this [employer] procedure are i n the results section. POC GLUCOSE Routine 06/14/2019 8:38 Results for this [employer] procedure are i n the results section. GASTROINTESTINAL PANEL Routine 06/14/2019 5:48 R esults for this AM [employer] procedure are i n the results section. T4, FREE Routine 06/14/2019 5:14 Results for this [employer] procedure are i n the results section. THYROID STIMULATING Routine 06/14/2019 5:14 Resu lts for this HORMONE [employer] procedure are i n the results section. LIPID PANEL Routine 06/14/2019 5:14 Results for this [employer] procedure are i n the results section. HEMOGLOBIN A1C Routine 06/14/2019 5:14 Results f or this AM [employer] procedure are i n the results section. MANUAL DIFFERENTIAL Routine 06/14/2019 4:59 Resu lts for this AM [employer] procedure are i n the results section. ESTIMATED GFR Routine 06/14/2019 4:59 Results fo r this AM [employer] procedure are i n the results section. BASIC METABOLIC PANEL Routine 06/14/2019 4:59 Re sults for this [employer] procedure are i n the results section. CBC WITH PLATELET AND Routine 06/14/2019 4:59 Re sults for this DIFFERENTIAL AM [employer] procedure are i n the results section. POC GLUCOSE Routine 06/13/2019 9:19 Results for this [employer] procedure are i n the results section. POC GLUCOSE Routine 06/13/2019 4:35 Results for this [employer] procedure are i n the results section. POC GLUCOSE Routine 06/13/2019 11:50 Results for this [employer] procedure are i n the results section. POC GLUCOSE Routine 06/13/2019 8:04 Results for this AM [employer] procedure are i n the results section. POC GLUCOSE Routine 06/13/2019 8:02 Results for this [employer] procedure are i n the results section. HC COMPLETE BLD COUNT Routine 06/13/2019 5:30 Re sults for this W/AUTO DIFF AM [employer] procedure are i n the results section. ESTIMATED GFR Routine 06/13/2019 4:00 Results fo r this [employer] procedure are i n the results section. BASIC METABOLIC PANEL Routine 06/13/2019 4:00 Re sults for this [employer] procedure are i n the results section. TROPONIN Timed 06/13/2019 1:36 Results for this AM [employer] procedure are i n the results section. TROPONIN Timed 06/12/2019 10:55 Results for this [employer] procedure are i n the results section. GASTROINTESTINAL PANEL Routine 06/12/2019 10:05 R esults for this [employer] procedure are i n the results section. INFLUENZA ANTIGEN Routine 06/12/2019 9:15 Result s for this [employer] procedure are i n the results section. XR CHEST 1 VW PORTABLE STAT 06/12/2019 8:55 R esults for this [employer] procedure are i n the results section. ECG ED PRELIMINARY Routine 06/12/2019 7:50 Resul ts for this INTERPRETATION [employer] procedure are in the results section. URINALYSIS SCREEN AND STAT 06/12/2019 7:49 Re sults for this MICROSCOPY, WITH REFLEX [employer] proc edure are in TO CULTURE the results section. ESTIMATED GFR STAT 06/12/2019 7:49 Results fo r this [employer] procedure are i n the results section. PROTHROMBIN TIME WITH STAT 06/12/2019 7:49 Re sults for this INR [employer] procedure are i n the results section. PARTIAL THROMBOPLASTIN STAT 06/12/2019 7:49 R esults for this TIME (PTT) [employer] procedure are i n the results section. B NATRIURETIC PEPTIDE STAT 06/12/2019 7:49 Re sults for this [employer] procedure are i n the results section. TROPONIN STAT 06/12/2019 7:49 Results for this [employer] procedure are i n the results section. COMPREHENSIVE METABOLIC STAT 06/12/2019 7:49 Results for this PANEL [employer] procedure are i n the results section. HC COMPLETE BLD COUNT STAT 06/12/2019 7:49 Re sults for this W/AUTO DIFF [employer] procedure are i n the results section. URINE CULTURE STAT 06/12/2019 7:49 Results fo r this [employer] procedure are i n the results section. ECG 12-LEAD STAT 06/12/2019 7:42 Results for this [employer] procedure are i n the results section. after 12/24/2018 Results POC glucose (07/16/2019 12:29 PM CDT)Only the most recent of156 resultswithin the time period is included. Pathologist Sig nature POC glucose 253 (H) 65 - 99 mg/dL [facility] Comment: HOSPITAL Robotics Testing Technician Name: Ney Lao Device ID: [id number] Chartable: [facility] Notified RN Specimen Blood Performing Organization Address City/State/Zipcode Phone Number [facility] DEPARTMENT OF PATHOLOGY AND [address] [place], [place] [address] GEN[address] [address] Estimated GFR (07/16/2019 4:00 AM CDT)Only the most recent of36 resultswithin the time period is included. Estimated GFR 14 (A) mL/min/1.73 [facility] Comment: m2 HOSPITAL Catergory Units Interpretation G1 [...] published in 2014. Specimen Performing Organization Address City/[facility] Phone Number [facility] DEPARTMENT OF PATHOLOGY AND [address] [place] [address] Phosphorus level (07/16/2019 4:00 AM CDT)Only the most recent of31 results within the time period is included. Pathologist Sig nature Phosphorus 4.3 2.4 - 4.5 mg/dL [facility] L Specimen Blood Performing Organization Address [facility] Phone Number [facility] DEPARTMENT OF PATHOLOGY AND [address] [place] [address] [address] Basic metabolic panel (07/16/2019 4:00 AM CDT)Only the most recent of35 results within the time period is included. Pathologist Sig nature Sodium 142 135 - 148 mEq/L [facility] Potassium 4.3 3.5 - 5.0 mEq/L [facility] Chloride 105 98 - 112 mEq/L [facility] CO2 27 24 - 31 mEq/L [facility] Anion gap 10@ANIO 7 - 15 mEq/L [facility] BUN 46 (H) 6 - 20 mg/dL [facility] Creatinine 4.61 (H) 0.70 - 1.20 mg/dL [facility] Glucose 189 (H) 65 - 99 mg/dL [facility] Calcium 8.7 8.3 - 10.2 mg/dL [facility] Specimen Blood Performing Organization Address City/[facility] Cent[facility]ode Phone Number [facility] DEPARTMENT OF PATHOLOGY AND [address] [place], [place] [address] [facility] [address] [place] [address] CBC with platelet and differential (07/15/2019 5:30 AM CDT)Only the most recent of15 resultswithin the time period is included. WBC 6.44 4.50 - 11.00 [facility] k/uL HOSPITAL RBC 3.54 (L) 4.40 - 6.00 [facility] m/uL HOSPITAL HGB 10.6 (L) 14.0 - 18.0 [facility] gdL [facility] HCT 31.2 (L) 41.0 - 51.0 % [facility] MCV 88.1 82.0 - 100.0 [facility] MCH 29.9 27.0 - 34.0 pg [facility] MCHC 34.0 31.0 - 37.0 [facility] - SD 44.3 37.0 - 55.0 fL [facility] MPV 12.1 8.8 - 13.2 fL [facility] Platelet count 157 150 - 400 k/uL [facility] Nucleated RBC 0.00 /100 WBC [facility] Neutrophils 48.0 39.0 - 69.0 % [facility] Lymphocytes 32.5 25.0 - 45.0 % [facility] Monocytes 7.8 0.0 - 10.0 % [facility] Eosinophils 10.6 (H) 0.0 - 5.0 % [facility] Basophils 0.9 0.0 - 1.0 % [facility] Immature granulocytes 0.2Comment: 0.0 - 1.0 % [facility] "Immature [facility] granulocytes" (promyelocytes , myelocytes, metamyelocytes ) Specimen Blood Performing Organization Address City/[facility] Cent[facility]ode Phone Number [facility] DEPARTMENT OF PATHOLOGY AND [address] [place], [place] [address] [facility] [address] [place] [address] Magnesium level (07/14/2019 5:10 AM CDT)Only the most recent of29 resultswithin the time period is included. Pathologist Sig nature Magnesium 1.9 1.6 - 2.6 mg/dL [facility] L Specimen Blood Performing Organization Address City/State/Zipcode Phone Number [facility] DEPARTMENT OF PATHOLOGY AND [address] [place], [place] [address] GENOMIC MEDICINE [facility] [address] [place] [address] CT Chest Wo Contrast (07/11/2019 9:40 AM [...] ensure appropriate moderation of exposure. Automated dose manager care management nology is applied to adjust the radiation [...] of multifocal pneumonia. Rec ommend clinical correlation.. [facility]-[id number] Procedure Note Interface, Radiology Results Incoming - [...] improvement of multifocal pneumonia. Recommend clinical correlation.. [facility]-[id number] Performing Organization Address [facility] Centercomi Phone Number [facility] [address] [place] [address] Total iron binding capacity (07/10/2019 1:40 PM CDT) Pathologist Sig [facility] Iron level 72 59 - 158 ug/dL [facility] Iron binding capacity 298 200 - 400 ug/dL [facility] % Saturation 24.2 20.0 - 40.0 % [facility] Specimen Blood Performing Organization Address City/[facility]/Zipcode Phone Number [facility] DEPARTMENT OF PATHOLOGY AND [address] [place], [place] [address] [address] [address] Ferritin level (07/10/2019 1:40 PM CDT) Pathologist Sig nature Ferritin level 214 30 - 400 ng/mL [facility] Specimen Blood Performing Organization Address City/[facility]/Zipcode Phone Number [facility] DEPARTMENT OF PATHOLOGY AND [address] [place], [place] [address] GENOMIC MEDICINE [facility] [address] [place] [phone] [place] Modified Barium Swallow (07/09/2019 1:51 PM [...] to Speech Pathology report for further details. [facility]-[id number] Dictated and approved by resident care assistant/fellow: Marin Escamilla M.D. I, Adriana Morales MD, personally reviewed the images and resident's/fellow's findings and agree with the final report. Procedure Note Interface, Radiology Results Incoming - 07/09/2019 3:05 [...] to Speech Pathology report for further details. [facility]-[id number] Dictated and approved by radiology resid ent/fellow: Eugenia Escamilla M.D. I, Adriana Morales MD, personally review ed the images and resident's/fellow's findings and agree with the final report. Performing Organization Address City/[facility]/Zipcode Phone Number [facility] [address] [place] [address] Hepatic function panel (07/08/2019 4:00 AM CDT)Only the most recent of15 resultswithin the time period is included. Albumin 2.4 (L) 3.5 - 5.0 [facility] g/dL [facility] Total bilirubin <0.2 0.0 - 1.2 [facility] mg/dL HOSPITAL Bilirubin direct <0.2 0.0 - 0.3 [facility] mg/dL [facility] Alkaline phosphatase 133 (H) 40 - 129 U/L [facility] Protein 6.9 6.3 - 8.3 [facility] Comment: g/dL [facility] [place] 4.6-7.0 g/dL 1 week 4.4-7.6 g/dL 7 months-1year 5.1-7.3 g/dL 1-2 years 5.6-7.5 g/dL >3 years 6.0-8.0 g/dL 18-150 6.3-8.3 g/dL ALT 20 5 - 50 U/L [facility] AST 20 10 - 50 U/L [facility] Specimen Plasma specimen Performing Organization Address [facility] Centercode Phone Number [facility] DEPARTMENT OF PATHOLOGY AND [address] [place] [address] GEN[address] [address] Hypersensitivity pneumonitis II (07/07/2019 5:30 PM CDT) Aspergillus flavus None Detected None-[facility] Comment: tin LAB Testing includes antibodies directed at Aspergillus fl avus, Aspergillus fumigatus #2, Aspergillus fumigatus #3, Saccharomonospora viridis, and Thermoactinomyces dory dus. Aspergillus fumigatus None Detected None-[facility] REF #2 tin LAB Aspergillus fumigatus None Detected None-Detec [facility] REF #3 tin LAB Saccharomonospora None Detected None-[facility] viridis tin LAB Thermoactinomyces None Detected None-Detec [facility] REF candidus Comment: tin LAB Performed by [employer], [address] [place], [place] [id number] [email or web address], Roberto Almaguer MD, Lab. Director Thermoactinomyces NOT PERFORMED WITH [facility] saccharii THIS PANEL LAB Specimen Serum Performing Organization Address [facility] Centercode Phone Number [facility] [address] [place] [address] [facility] [address] [place] [address] Hypersensitivity pneumonitis I (07/07/2019 5:30 PM CDT) Aspergillus fumigatus None Detected None-[facility] REF #1 tin LAB Aspergillus fumigatus None Detected None-Detec [facility] REF #6 tin LAB Aureobasidium pullulans None Detected None-Detec [facility] Comment: tin LAB Testing includes antibodies directed at Aureobasidium pullulans, Aspergillus fumigatus #1, Aspergillus fumigatus #6, Mi cropolyspora faeni, [place] Serum and Thermoactinomyces vulgaris #1. [place] serum None Detected None-[facility]ec [facility] tin LAB Micropolyspora faeni None Detected None-Detec [facility] tin LAB Thermoactinomyces None Detected None-Detec [facility] vulgaris #1 Comment: tin LAB Performed by [employer], [address] [place] [id number] [email or web address], Roberto Almaguer MD, Lab. Director Specimen Serum Performing Organization Address City/[facility] Centercode Phone Number [facility] [address] [place] [address] [facility] [address] [place] [address] Immunoglobulin G (07/07/2019 4:11 PM CDT) Pathologist Sig nature IgG 1,005 700 - 1,600 mg/dL [facility] Specimen Plasma specimen Performing Organization Address City/[facility]/Zipcode Phone Number [facility] DEPARTMENT OF PATHOLOGY AND [address] [place] [address] [phone] [address] SS-B antibody (07/07/2019 2:30 PM CDT) Sjogren's SS-B <0.2 0.0 - 0.9 [place] antibody [facility] SS-B antibody Negative [facility] Comment: [facility] SS-B/La antibody is seen in patients with Sjogre n syndrome, but may also be HOSPITAL positive with systemic lupus erythematosus (SLE), and systemic sclerosis. Specimen Serum Performing Organization Address City/[facility]/Zipcode Phone Number [facility] DEPARTMENT OF PATHOLOGY AND [address] [place] [address] [phone] [address] SS-A antibody (07/07/2019 2:30 PM CDT) Pathologist [facility] Sjogren's SS-A <0.2 0.0 - 0.9 [facility] SS-A antibody Negative [facility] interp Comment: [facility] SS-A antibody is sensitive for Sjogren's syndrom e, but may also be positive HOSPITAL with systemic lupus erythematosus (SLE), and systemic sclerosis. Specimen Serum Performing Organization Address City/State/Zipcode Phone Number [facility] DEPARTMENT OF PATHOLOGY AND [address] [place] [address] Scl-70 antibody (07/07/2019 2:30 PM CDT) Pathologist [facility] Scleroderma SCL-70 <0.2 0.0 - 0.9 [facility] Scl-70 antibody Negative [facility] interp Comment: [facility] Anti-Scl-70 (topoisomerase I) antibodies are found in patients with HOSPITAL systemic sclerosis (SSc or scleroderma), and have been reported to be predictive of diffuse cutaneous involvement. Anti-Scl- 70 antibodies may also be present in patients with systemic lupus erythe matosus (SLE). Specimen Serum Performing Organization Address [facility]/Zipcode Phone Number [facility] DEPARTMENT OF PATHOLOGY AND [address] [place] [address] [phone] [address] Centromere antibody (07/07/2019 2:30 PM CDT) Pathologist [facility] Centromere <0.2 0.0 - 0.9 [facility] Centromere Negative [facility] antibody interp Comment: HOSPITAL Anti-centromere antibodies are found in patients with systemic sclerosis (SSc or scleroderma), especially for those with limite d cutaneous or CREST syndrome. Anti-centromere antibodies may also be found in patients with other rheumatic or connective tissue diseases. Specimen Serum Performing Organization Address City/State/Zipcode Phone Number [facility] DEPARTMENT OF PATHOLOGY AND [address] [place] [address] [phone] [address] DNA Ab screen (07/07/2019 2:30 PM CDT) Pathologist [facility] nature DNA Ab screen Not Detected Not-Detected [facility] Specimen Blood Performing Organization Address City/[facility]/Zipcode Phone Number [facility] DEPARTMENT OF PATHOLOGY AND [address] [place], [place] [address] [facility] [address] [place] [address] Anti-neutrophilic cytoplasmic Abs panel (07/07/2019 2:30 PM CDT) Pathologist Sig nature ANCA screen Negative Negative [facility] Specimen Blood Performing Organization Address [facility]/Zipcode Phone Number [facility] DEPARTMENT OF PATHOLOGY AND [address] [place] [address] [phone] [address] [address] Cardiac Overread (07/06/2019 6:20 PM CDT) [...] Performing Organization Address City/State/Zipcode Phone Number [facility] [address] [phone] Cv cta coronary arteries w contrast and ffr if needed (07/06/2019 1:32 PM CDT) Specimen Narrative Performed At This result has an attachment that is no t available. [facility] Nuclear Cardiology and Card iac CT [address] [place] [address] CTA Coronary Arteries R eport Pat.Name: PAOLA KWONG Pat.ID: [id number] .Date: 07/06/2019 Refer.MD: MILTON ELLINGTON MD Exam Time: 1:09:00 PM Study Type:C TA Coronary Arteries Height: 67in Weight: 212lb BSA: 2.07 m2 Age: 6 1965,53Y Sex: MALE BP: 151/83 HR: 54 bpm Nuclear Tech:Samina Beyer, RT(R)(CT) Pat. Stat.:Inpatient Tape Vol: 33.2, CPT - 4: CCTA w Thoracic Aorta (NonCongenital) [id number] Nuclear Event ID:[id number] Order ID: [id number] Reason for Study:Pre-Op CABG, CAD History / Clinical:Coronary artery disease, Diabetes, Hyperlipidemia, Hypertension, S/P PCI 07/2007, Liver cirrhosis/Hepatiti s C Procedures: CT Prospective (phases) Race: C SUMMARY: Technique: IV contrast was administered and sequential 0.[address] cuts were obtained through the chest using the Siemens [employer] Force CT scanner. Image post-processing consisting of multiplan ar and 3D reconstructions were performed using the [employer] workstation. Interactive image viewing, volumetric dis play [...] refer to the separate radiology report in [facility] for any additional non-cardiovascular findings. STUDY QUALITY The study quality is good. COMMENTS None. FINDINGS: Signed 07/06/2019 05:59 PM Sreedhar Walton MD Procedure Note Interface, Radiology Results In - 2019 5:59 PM CDT Nuclear Cardiology and Cardiac CT [address] [place] [address] CTA Coronary Arteri es Report Pat.Name: PAOLA KWONG Pat.I D: [id number] St.Date: 07/06/2019 Refer.MD: MILTON ELLINGTON MD Exam Time: 1:09:00 PM Study Type:CTA Coronary Arteries Height: 67in Weigh t: 212lb BSA: 2.07 m2 Age: 6 1965,53Y Sex: MALE BP: 151/83 HR: 54 bpm Nuclear Tech:RT Yuni(R)(CT) Pat. Stat.:Inpatient Tape Vol: 33.2, CPT - 4: CCTA w Thoracic Aorta (NonCo ngenital) [id number] Nuclear Event ID:[id number] Order ID: [id number] Reason for Study:Pre-Op CABG, CAD History / Clinical:Coronary artery disea se, Diabetes, Hyperlipidemia, Hypertension, S/P PCI 07/2007, Liver cirr hosis/Hepatitis C Procedures: CT Prospective (phases) Race: C SUMMARY: Technique: IV contrast was administered and sequential 0.[address] cuts were obtained through the chest using e Siemens Zapier CT scanner. Image post-processing consistin g of multiplanar and 3D reconstructions were performed using the [employer] workstation. Interactive image viewing, volumetric display and [...] to the separate radiology r eport in [facility] for any additional non-cardiovascular findings. STUDY QUALITY The study quality is good. COMMENTS None. FINDINGS: Signed 07/06/2019 05:59 PM Sreedhar Walton MD Performing Organization Address [facility] Phone Number [facility] [address] [place] [address] HIV Ag/Ab combination (07/06/2019 5:20 AM CDT) Pathologist [facility] HIV Ag/Ab combination Non-reactive Non-reactive [facility] Specimen Blood Performing Organization Address [facility] Phone Number [facility] DEPARTMENT OF PATHOLOGY AND [address] [place] [phone] Prothrombin time with INR (07/06/2019 5:20 AM CDT)Only the most recent of3 resultswithin the time period is included. [facility] Prothrombin time 14.5 11.5 - 14.5 [facility] INR 1.1 [place] Comment: [facility] International Normalized Ratio (INR) is a [facility] monitoring tool for patients who are stable on oral anticoagulant therapy. An INR of 2.0-3.0 is suggested for deep vein thrombosis/pulmonary embolism. Specimen Blood Performing Organization Address [facility] Phone Number [facility] DEPARTMENT OF PATHOLOGY AND [address] [place] [address] Rheumatoid factor (07/06/2019 5:20 AM CDT) Pathologist [facility] Rheumatoid factor <10 0 - 13 IU/mL [facility] Specimen Plasma specimen Performing Organization Address [facility] Phone Number [facility] DEPARTMENT OF PATHOLOGY AND [address] [place] [address] [phone] [address] C3 complement component (07/06/2019 5:20 AM CDT) [facility] C3 complement 133 90 - 180 mg/dL [facility] Specimen Plasma specimen Performing Organization Address [facility]ode Phone Number [facility] DEPARTMENT OF PATHOLOGY AND [address] [place] [address] C4 complement component (07/06/2019 5:20 AM CDT) Pathologist [facility] C4 complement 34 10 - 40 mg/dL [facility] Specimen Plasma specimen Performing Organization Address [facility] Phone Number [facility] DEPARTMENT OF PATHOLOGY AND [address] [place] [address] [place] [address] Transthoracic Echocardiogram Complete, (w Contrast, Strain and 3D if needed) (07/05/2019 9:25 AM CDT) Specimen Narrative Performed At [facility] Echo cardiography Report [address] [place] [address] Pat.Name: PAOLA KWONG Pat.ID: [id number] .Date: 07/05/2019 Refer.MD: MILTON ELLINGTON MD Exam Time: 7:54:00 AM Study Type:R outine Echo Height: 67in Weight: 212lb BSA: 2.07 m2 Ag e: 1965,53Y Sex: MALE BP: 157/71 Sonogrphr: Audrey Bella RDCS, RVSPat. Stat.:[facility] Study S tatus:Final Echo Event ID:[id number] Order ID: [id number] Reason for Study:Chest pain, suspected c ardiac etiology History / Clinical:Chest Pain, Diabetes, Hyperlipidemia, Hypertension, Cirrhosis, [place], Infectious Viral Hepatiti s Procedures: 2D Echo, [...] PA systolic pressure. MEASUREMENTS: 2D Parasternal [place] Ao An 2 cm LVPWd 1.5 cm [...] - 2019 10:49 AM CDT Echocardiography Report [address] [place] [address] Pat.Name: PAOLA KWONG Pat.I D: [id number] .Date: 07/05/2019 Refer.MD: MILTON ELLINGTON MD Exam Time: 7:54:00 AM Study Type:Routine Echo Height: 67in Weigh t: 212lb BSA: 2.07 m2 Age: 6 1965,53Y Sex: MALE BP: 157/71 Sonogrphr: Audrey Bella RDCS, RVSPat. Stat.:Inpatient Room: [facility] Study Status:Final Echo Event ID:[id number] Order ID: [id number] Reason for Study:Chest pain, suspected c ardiac etiology History / Clinical:Chest Pain, Diabetes, Hyperlipidemia, Hypertension, Cirrhosis, [place], Infectious Viral Hepatiti s Procedures: 2D Echo, [...] PA systolic pressure. MEASUREMENTS: 2D Parasternal [place] Ao An 2 cm LVPW d 1.5 [...] Performing Organization Address City/State/Zipcode Phone Number [facility] [address] [place] [address] Vancomycin level, random (07/05/2019 5:14 AM CDT)Only the most recent of8 resultswithin the time period is included. Pathologist Sig nature Vancomycin, random 11.9 ug/mL [facility] Specimen Serum Performing Organization Address City/[facility]ode Phone Number [facility] DEPARTMENT OF PATHOLOGY AND [address] [place], [place] [address] GENOMIC MEDICINE [facility] [address] [place] [address] [facility] NEED PHYS SKILL,DX OR RX (07/02/2019 2:59 PM INSIDE SALES) Narrative Performed At Estela Padilla RN 07/02/2019 3:03 PM Midline Date/Time: 07/02/2019 2:59 PM Performed by: Kaykay Rain Authorized by: Milton Ellington Sr., MD Consent: Consent obtained: Verbal Consent given by: Patient Risks discussed: arterial puncture, incorrect place ment, nerve damage, infection, bleeding, superficial thrombu s and deep vein thrombus Alternatives discussed: No treatment, delayed cathy atment and alternative treatment [place] protocol: Procedure explained and questions ans wered to patient or proxy's satisfaction: yes Relevant documents present and verifi ed: yes Test results available and properly l abeled: yes Imaging studies available: yes Required blood products, implants, de vices, and special equipment available: yes Site/side marked: yes Immediately prior to procedure, a marlyn watson out was called: yes Patient identity confirmed: [...] 4.5. Indication: Poor venous access and known residential IV therapy Location: Right basilic Device Type: Non-valved Catheter size: 4 Fr Catheter to vein ratio: 31% Line Characteristics: Catheter Brand: BioFlo Midline External Catheter Length (cm): 0 Internal Catheter Length (cm): 10 Total Catheter Length (cm): 10 Catheter Lot Number: [id number] Catheter Expiration Date: 12/26/2020 Procedure Details: Landmarks [...] complications Vancomycin level, trough (07/01/2019 2:30 PM INSIDE SALES) Vancomycin, 23.0 (HH) 10.0 - 20.0 [facility] trough Comment: ug/mL HOSPITAL Therapeutic Ranges: Peak 30.0 - 40.0 ug/mL Trough 10.0 - 20.0 ug/mL Specimen Serum Performing Organization Address City/State/Zipcode Phone Number [facility] DEPARTMENT OF PATHOLOGY AND [address] [place] [phone] GEN[address] [address] Surgical pathology request (06/30/2019 11:36 AM INSIDE SALES) [facility] DEPARTMENT OF PATHOLOGY AND GENOMIC MEDICINE Surgical pathology See link below [facility] DEPARTMENT OF report for PDF Lab PATHOLOGY AND Report GENOMIC MEDICINE Result status This is Final [facility] DEPARTMENT OF Report for PATHOLOGY AND [id number] GENOMIC MEDICINE Specimen Performing Organization Address City/State/Zipcode Phone Number [facility] DEPARTMENT OF PATHOLOGY AND [address] [place] [phone] GENOMIC MEDICINE IR Transjugular Liver Biopsy (06/30/2019 9:39 AM INSIDE SALES) Specimen Narrative Performed At Performing Radiologist EMERY Lauren MD Assistants None Anesthesia Type Moderate sedation was administered by the procedure nu rse and monitored by the procedure physician for a smor-vz-chij sedation time of 20 minutes. Lidocaine 1% [...] atrial pressure measures were then obtained. A 5-Comoran multipurpose catheter was advanced over the g uidewire and used to select the right hepatic vein. A CO2 right hepatic venogram was performed. Pressure measure ments were also obtained in both the free and wedge positions. The 9-F rench vascular sheath was then advanced into the right hepatic vein. The transjugular liver biopsy system was advanced through the 9-Comoran vascular sheath, and multiple 18-gauge core liver biopsy specimens were obtained and submitted to pathology. Th e transjugular liver biopsy system and 9-Comoran vascular sheath were then removed from the [...] hepatic: 11 mmHg Wedge hepatic: 15 mmHg [facility]-[id number] [address] [facility], Radiology Results Incoming - 06/30/2019 4:50 PM INSIDE SALES Performing Radiologist Vamshi Lauren MD Assistants None Anesthesia Type Moderate sedation was administered by e procedure nurse and monitored by the procedure physician for a zjsf-qb-mbky sedation time of 20 minutes. Lidocaine 1% [...] into the inferior vena cava. A long 9-Comoran vascular sheath was then placed,and adva nced over the guidewire into the right atrium. Right atrial pressure measures were then obtained. A 5-Comoran multipurpose catheter was advanced over the guidewire and used to select the right hepatic vein. A CO2 right hepatic venogram was performed. Pr essure measurements were also obtained in both the free and wedge positions. The 9-Comoran vascular sheath was then advanced into the right hepatic vein. The transjugular liver biopsy system was advanced through the 9-Comoran vascular sheath, and multiple 18-gauge core liver biopsy specimens were obtained and submitted to pathology. The transjugular liver biopsy system and 9-Comoran vascular sheath were then removed from the [...] hepatic: 11 mmHg Wedge hepatic: 15 mmHg [id number] Performing Organization Address [facility]/Zipcode Phone Number [facility] [address] [place] [address] ECG 12 lead (06/28/2019 9:41 AM INSIDE SALES)Only the most recent of4 resultswithin the time period is included. Pathologist Sig nature Ventricular rate 62 [facility] Atrial rate 62 [facility] MT interval 152 [facility] QRSD interval 144 [facility] QT interval 510 [facility] QTC interval 517 [facility] P axis 1 24 [facility] QRS axis 1 85 [facility] T wave axis 34 [facility] EKG impression Normal sinus [facility] MUSE rhythm-Right bundle branch block-Abnormal ECG-In automated comparison with ECG of 27-JUN-2019 08:13,-No significant change was found- Specimen Narrative Performed At This result has an attachment that is no t available. Performing Organization Address [facility] Phone Number [facility] MUSE [address] [place] [address] Troponin (06/28/2019 9:13 AM INSIDE SALES)Only the most recent of4 resultswithin the time period is included. Troponin <0.006 0.000 - 0.040 [facility] Comment: ng/mL HOSPITAL In patients suspected of [...] specimen Performing Organization Address City/State/Zipcode Phone Number [facility] DEPARTMENT OF PATHOLOGY AND [address] [place], [place] [address] GENOMIC MEDICINE [facility] [address] [place] [address] IR Tunneled Dialysis Catheter Placement (06/23/2019 10:03 AM INSIDE SALES) Specimen Narrative Performed At PERFORMING RADIOLOGIST: CONI Petersen MD ASSISTANTS: None. ANESTHESIA TYPE: Moderate sedation was administered by the procedure nu rse and monitored by the procedure physician for a total ddwv-xg-mrqm se dation time of 8 minutes. Lidocaine [...] PLAN: -Catheter is ready for immediate use. [facility]-[id number] Procedure Note Interface, Radiology Results Incoming - 06/24/2019 7:31 AM INSIDE SALES PERFORMING RADIOLOGIST: Will Petersen MD ASSISTANTS: None. ANESTHESIA TYPE: Moderate sedation was administered by [facility] procedure nurse and monitored by the procedure physician for a total nejq-ig-zxku sedation time of 8 minutes. Lidocaine 1% [...] PLAN: -Catheter is ready for immediate use. [facility]-[id number] Performing Organization Address City/State/Zipcode Phone Number [facility] [address] [place] [address] XR Abdomen 1 Vw Portable (06/21/2019 4:08 PM INSIDE SALES) Specimen Narrative Performed At EXAMINATION: XR ABDOMEN [...] are unremarkable. The lung bases are clear. [facility]-[id number] Procedure Note Interface, Radiology Results Incoming - 06/21/2019 6:05 PM INSIDE SALES EXAMINATION: XR ABDOMEN 1 VW PORTABLE CLINICAL [...] are unremarkable. The lung bases are clear. [facility]-[id number] Performing Organization Address City/State/Zipcode Phone Number [facility] [address] [place] [address] Aerobic culture (06/20/2019 5:32 PM INSIDE SALES) Aerobic culture Klebsiella pneumoniae [facility] WHITE T isolate [facility] The performance characteristics of this assay on this isolate were validated by the Microbiology Laboratory at [facility]. This source has not been approve d [...] otherwise specified Aerobic culture Enterococcus faecalis [facility] isolate Recovered in Broth only: HOSPITAL The performance characteristics of this assay on this isolate were validated by the Microbiology Laboratory at [facility]. This source has not been approve d [...] were validated by the Microbiology Laboratory at [facility]. This source has not been approved by the U.S. Food and Drug Administration. The results are not intended to be used as the sole means for clinical win gnosis or patient management. The Microbiology Laboratory is authorized under the clinical Laboratory Improvement Amendments of 1987 (CLIA-88) to perform high complexit y testing. Aerobic culture Klebsiella pneumoniae GONZALEZ WHITE T isolate [facility] The performance characteristics of this assay on this isolate were validated by the Microbiology Laboratory at [facility]. This source has not been approve d by the U.S. Food and Drug Administration. The results are n ot intended to be used as the sole means for clinical win gnosis or patient management. The Microbiology Laboratory i s authorized under the clinical Laboratory Improvement Amendments of 1987 (CLIA-88) to perform high complexit y testing. (A) Aerobic culture Citrobacter freundii complex [facility] ETHODIST isolate [facility] The performance characteristics of this assay on this isolate were validated by the Microbiology Laboratory at [facility]. This source has not been approve d [...] complex Performing Organization Address City/State/Zipcode Phone Number [facility] DEPARTMENT OF PATHOLOGY AND [address] [place], [place] [address] [address] [address] Gram stain (06/20/2019 5:32 PM INSIDE SALES) Gram stain isolate Rare WBC's [facility] Many Gram negative rods HOSPITAL Rare Gram positive cocci in pairs Comment: Specimen Information Specimen Source: Drainage Specimen Site: Not otherwise specified Specimen Drainage - Not otherwise specified Performing Organization Address [facility] Cent[facility]ode Phone Number [facility] DEPARTMENT OF PATHOLOGY AND [address] [place] [address] [place] [phone] Protein, urine, random (06/19/2019 7:06 PM INSIDE SALES) Pathologist Sig nature Protein, urine random 584 mg/dL [facility] Specimen Urine Performing Organization Address [facility]ode Phone Number [facility] DEPARTMENT OF PATHOLOGY AND [address] [place] [phone] [place] [phone] Creatinine level, urine, random (06/19/2019 7:06 PM INSIDE SALES) Pathologist Sig nature Creatinine, urine, 99 mg/dL [facility] Specimen Urine Performing Organization Address [facility] Phone Number [facility] DEPARTMENT OF PATHOLOGY AND [address] [place] [address] [place] [phone] Anti smooth muscle Ab screen (06/19/2019 12:00 AM INSIDE SALES) Pathologist Sig nature Anti smooth muscle Not Detected Not-Detected [facility] Ab [facility] Specimen Blood Performing Organization Address [facility] Phone Number [facility] DEPARTMENT OF PATHOLOGY AND [address] [place] [address] [place] [phone] Anti mitochondria screen (06/19/2019 12:00 AM INSIDE SALES) Anti mitochondria Not Detected Not-Detected [facility] Specimen Blood Performing Organization Address [facility] Phone Number [facility] DEPARTMENT OF PATHOLOGY AND [address] [place] [address] [place] [phone] Urine culture (06/18/2019 7:24 AM INSIDE SALES)Only the most recent of2 resultswithin the time period is included. Urine culture No growth after 24 hours [facility] Comment: HOSPITAL Specimen Information Specimen Source: Urine Specimen Site: Clean catch Specimen Urine Performing Organization Address [facility]/Zipcode Phone Number [facility] DEPARTMENT OF PATHOLOGY AND [address] [place] [phone] [facility] [address] [place] [phone] Urinalysis screen and microscopy, with reflex to culture (06/18/2019 5:30 AM INSIDE SALES)Only the most recent of2 resultswithin the time period is included. Pathologist Sig nature Specimen site Clean catch [facility] Color, UA Yellow [facility] Appearance, UA Cloudy [facility] Specific gravity, 1.011 1.001 - 1.035 [facility] pH, UA 5.0 5.0 - 8.5 [facility] Protein, UA 3+ (A) Negative [facility] Glucose, UA 1+ (A) Negative [facility] Ketones, UA Negative Negative [facility] Bilirubin, UA Negative Negative [facility] Blood, UA Small (A) Negative [facility] Nitrite, UA Negative Negative [facility] Urobilinogen, UA <2.0 <2.0 [facility] Leukocyte esterase, Negative Negative [facility] WBC, UA 14 (H) 0 - 1 /HPF [facility] RBC, UA 1 0 - 5 /HPF [facility] Bacteria, UA Few None seen [facility] WBC clumps, UA Few (A) [facility] Yeast, UA None seen [facility] Yeast with None seen [facility] pseudohyphae, HOSPITAL Amorphous crystals Few [facility] Granular casts, UA 1 0 - 1 /LPF [facility] Specimen Urine Performing Organization Address [facility]/Zipcode Phone Number [facility] DEPARTMENT OF PATHOLOGY AND [address] [place] [phone] [place] [id number] [place] [address] Hepatitis B surface Ab, quantitative (06/18/2019 5:00 AM INSIDE SALES) Hepatitis B surface <3.10 IU/L [facility] REF [facility] Ab Comment: The anti-HBs is [...] to MMWR April 19, 2005/Vol. 54 (No. 16);05-20, and for healthcare workers refer to MMWR [...] and Tissue-Based Products (HCT/P) . Performed by [employer], [address] [place] [address] [email or web address], Roberto Almaguer MD, Lab. Director Specimen Serum Performing Organization Address [facility] Centercode Phone Number [facility] [address] [place] [address] [facility] [address] [place] [address] Ammonia level (06/18/2019 5:00 AM INSIDE SALES) Pathologist Sig [facility] Ammonia 63 (H) 16 - 60 umol/L [facility] Specimen Blood Performing Organization Address [facility] Phone Number [facility] DEPARTMENT OF PATHOLOGY AND [address] [place] [address] [phone] [address] Hepatitis C antibody (06/18/2019 4:00 AM INSIDE SALES) Pathologist Sig [facility] Hepatitis C Ab Non-reactive Non-reactive [facility] Specimen Serum Performing Organization Address [facility] Centercode Phone Number [facility] DEPARTMENT OF PATHOLOGY AND [address] [place] [address] [phone] [address] Alpha-1 antitrypsin level (06/18/2019 4:00 AM INSIDE SALES) Pathologist Sig [facility] Alpha-1 antitrypsin 166 90 - 200 mg/dL [facility] Specimen Plasma specimen Performing Organization Address [facility] Centercode Phone Number [facility] DEPARTMENT OF PATHOLOGY AND [address] [place] [address] [phone] [address] Hepatitis A antibody IgM (06/18/2019 4:00 AM INSIDE SALES) Pathologist Sig nature Hepatitis A IgM Non-reactive Non-reactive [facility] Specimen Serum Performing Organization Address City/[facility]/Zipcode Phone Number [facility] DEPARTMENT OF PATHOLOGY AND [address] [place] [address] [place] [phone] Ceruloplasmin level (06/18/2019 4:00 AM INSIDE SALES) Pathologist Sig nature Ceruloplasmin 22 15 - 30 mg/dL [facility] Specimen Plasma specimen Performing Organization Address City/[facility] Centercode Phone Number [facility] DEPARTMENT OF PATHOLOGY AND [address] [place] [address] Alpha fetoprotein (06/18/2019 4:00 AM INSIDE SALES) Pathologist [facility] Alpha fetoprotein 1.6 0.0 - 8.3 [place] Comment: ng/mL [facility] The Lexis 8000 AFP immunoassay was used. HOSPITAL Results obtained with different assay methods or kits should not be used interchangeably and may be differen t. Specimen Serum Performing Organization Address City/[facility] Centercode Phone Number [facility] DEPARTMENT OF PATHOLOGY AND [address] [place] [address] Hepatitis B core antibody IgM (06/18/2019 4:00 AM INSIDE SALES) Pathologist Sig nature Hepatitis B core Non-reactive Non-reactive [facility] IgM HOSPITAL Specimen Serum Performing Organization Address City/[facility] Cent[facility]ode Phone Number [facility] DEPARTMENT OF PATHOLOGY AND [address] [place] [address] [place] [phone] Hepatitis B core antibody total (06/18/2019 4:00 AM INSIDE SALES) Pathologist Sig nature Hepatitis B core Non-reactive Non-reactive [facility] total Ab HOSPITAL Specimen Serum Performing Organization Address City/[facility]/Zipcode Phone Number [facility] DEPARTMENT OF PATHOLOGY AND [address] [place] [address] [place] [phone] Hepatitis B surface antibody (06/18/2019 4:00 AM INSIDE SALES) Pathologist Sig nature Hepatitis B surface Non-reactive Non-reactive [facility] Ab [facility] Specimen Serum Performing Organization Address City/[facility] Centercode Phone Number [facility] DEPARTMENT OF PATHOLOGY AND [address] [place] [address] [place] [phone] Hepatitis B surface antigen (06/18/2019 4:00 AM INSIDE SALES) Pathologist Sig [facility] Hepatitis B surface Non-reactive Non-reactive [facility] Ag [facility] Specimen Serum Performing Organization Address City/[facility] Centercode Phone Number [facility] DEPARTMENT OF PATHOLOGY AND [address] [place] [phone] ANNE (06/18/2019 4:00 AM INSIDE SALES) ANNE screen Negative Negative [facility] Comment: HOSPITAL Test performed using NOVA WaveMAX DAPI ANNE kit (Indirect Immunofluorescence Assay) for Anti-Nuclear Antibody on [employer] 160 Analyzer. Specimen Blood Performing Organization Address City/[facility] Centercode Phone Number [facility] DEPARTMENT OF PATHOLOGY AND [address] [place] [address] GGT (06/18/2019 4:00 AM INSIDE SALES) Pathologist Sig [facility] GGT 80 (H) 0 - 59 U/L [facility] Specimen Plasma specimen Performing Organization Address City/[facility] Centercode Phone Number [facility] DEPARTMENT OF PATHOLOGY AND [address] [place] [address] US Abdomen Complete (06/17/2019 4:48 PM INSIDE SALES) Specimen Narrative Performed At EXAM: US ABDOMEN COMPLETE [facility] CLINICAL DATA: 53 years Male Cirrho [...] participate in the care of your patient. [facility]-[id number] Procedure Note Hm Interface, Radiology Results Incoming - 06/17/2019 4:59 PM INSIDE SALES EXAM: US ABDOMEN COMPLETE CLINICAL DATA: 53 [...] participate in the care of your patient. [facility]-[id number] Performing Organization Address City/State/Zipcode Phone Number [facility] [address] [place] [address] US Abdominal Doppler (06/17/2019 4:48 PM INSIDE SALES) Specimen Narrative Performed At EXAMINATION: US [facility]: rule out portal [...] and vein are identified and are patent. [facility]-[id number] Procedure Note Interface, Radiology Results Incoming - 06/17/2019 4:55 PM INSIDE SALES EXAMINATION: US ABDOMINAL DOPPLER CLINICAL HISTORY: rule [...] and vein are identified and are patent. [facility]-[id number] Performing Organization Address City/State/Zipcode Phone Number [facility] [address] [place] [address] US Renal (06/17/2019 2:26 PM INSIDE SALES) Specimen Narrative Performed At EXAMINATION: US [facility]: Flank pain stone d isease suspected COMPARISON: None. IMPRESSION: The right kidney measures 12 cm in jeanine gth. The left kidney measures 13.9 cm in le ngth. There is no renal mass, stone, cyst, or hydronephrosis . Echogenicity is normal. The urinary bladder is unremarkable. [facility]-[id number] Procedure Note Interface, Radiology Results Incoming - 06/17/2019 2:32 PM INSIDE SALES EXAMINATION: US RENAL CLINICAL HISTORY: Flank pain stone dis ease suspected COMPARISON: None. IMPRESSION: The right kidney measures 12 cm in juan ramon th. The left kidney measures 13.9 cm in jeanine gth. There is no renal mass, stone, cyst, or hydronephrosis. Echogenicity is normal. The urinary bladder is unremarkable. [facility]-[id number] Performing Organization Address City/State/Zipcode Phone Number [facility] [address] [place] [address] Celiac disease reflexive cascade (06/17/2019 4:53 AM INSIDE SALES) IgA 449 (H) 68 - 408 mg/dL [facility] Comment: Total IgA is within or higher than established ranges. Tissue Transglutaminase, IgA to follow. REFERENCE INTERVAL: Immunoglobulin A Access complete set of age- and/or gender-specific ref erence intervals for this test in the [facility] ([employer]). Performed by [employer], [address] [facility] Rehabilitation HospitalActiveCloudBETHELRIDGE, [place] [id number] [email or web address], Roberto Almaguer MD, Lab. Director Specimen Serum Narrative Performed At [facility] called with reae back to Yu Kwon/ [facility] at 06/16/2019 [facility] 08:04 by NEFTALY. Performing Organization Address City/[facility]/Zipcode Phone Number [facility] [address] [place] [address] [facility] [address] [place] [address] Tissue transglutaminase Ab, IgA (06/17/2019 4:53 AM INSIDE SALES) Tissue 1 0 - 3 U/mL [facility] REF transglutaminase Ab, Comment: LAB IgA No [...] sitive predictive value for disease. Performed by [employer], [address] [facility],[place] [id number] [email or web address], Roberto Almaguer MD, Lab. Director Specimen Serum Narrative Performed At [facility] called with reae back to Yu Kwon/ [facility] at 06/16/2019 [facility] 08:04 by NEFTALY. Performing Organization Address City/State/Zipcode Phone Number [facility] [address] [place] [address] [facility] [address] [place] [address] Fecal calprotectin (06/15/2019 4:30 PM INSIDE SALES) Pathologist Sig nature Fecal calprotectin 57.64 <15.6-120mg/kg [facility] Specimen Blood Performing Organization Address City/State/Zipcode Phone Number [facility] DEPARTMENT OF PATHOLOGY AND [address] [place], [place] [address] [facility]IC[facility] [place] [phone] [place] [address] Spirometry, diffusion, lung volumes (06/15/2019 2:29 PM INSIDE SALES) Pathologist Sig nature FEV1 Pre 2.23 2.81 [...] available. Performing Organization Address City/State/Zipcode Phone Number [facility] [address] [place] [address] Us carotid duplex (06/15/2019 11:31 AM INSIDE SALES) Specimen Narrative Performed At [facility] Vascular U ltrasound Laboratory Carotid A rtery Duplex Report [address] [facility] [address], [place] [address] For quality control tech purposes, the categorization of the degree of the stenosis of this exam is based on criteria described i n the IAC carotid stenosis grading white paper( www.intersocietal.org/Va scular) and Thanh Nava., Derrick Fountain., et al. Carotid artery stenosis: wagner-scale and Doppler US diagnosis-- Society of Radiologists in Ultrasound Consensus Conference. Radio logy. 2002; 229(2):340-6. Pat.Name: PAOLA KWONG Pat.ID: [id number] .Date: 06/15/2019 Refer.MD: MILTON ELLINGTON MD Exam Time: 11:04:00 AM Study Type:Nelia rotid Height: 67in Weight: 212lb BSA: 2.07 m2 Ag e: 1965,53Y Sex: MALE BP: 116/68 Sonogrphr: Suad Greco, RDCS, RVT Pat. Stat.:Inpatient Room: [address] ol: ED, CPT - 4: [address]113 Echo Deysi nt ID:[id number] Order ID: [id number] Reason for Study:Pre-op evaluation History / Clinical:Smoker, CAD, S/p NV, DM, HTN, HLD, Liver cirrhosis, Chest pain, [...] Radiology Results In - 2019 8:06 PM [facility] [[email or web address]] Vascular Ultrasound Laboratory Carotid Artery Dupl ex Report [address] [place] [address] For quality control tech purposes, the sarah gorization of the degree of the stenosis of this exam is based on criteria described in the IAC carotid stenosis grading white paper( www.intersocietal.org/Vascular) and Thanh Nava., Derrick Fountain., et al. Carotid artery stenosis: wagner-scale and Doppler US diagnosis--Society of Radiologists in Ultrasound Consensus Conference. Radiology. 2003 Nov; 229(2):340-6. Pat.Name: PAOLA KWONG Pat.I D: [id number] St.Date: 06/15/2019 Refer.MD: MILTON ELLINGTON MD Exam Time: 11:04:00 AM Study Type:Carotid Height: 67in Weigh t: 212lb BSA: 2.07 m2 Age: 6 1965,53Y Sex: MALE BP: 116/68 Sonogrphr: Suad Greco RDCS, RVT Pat. Stat.:Inpatient Room: [address] Vol: ED, CPT - 4: 40385 Echo Event ID:[id number] Order ID: [id number] Reason for Study:Pre-op evaluation History / Clinical:Smoker, CAD, S/p NV, DM, HTN, HLD, Liver cirrhosis, Chest pain, [...] ICA/CCA PSV 0.564 Signed 06/15/2019 08:05 PM Vlaentín Vallejo MD, RPVI Performing Organization Address City/State/[facility] Centercode Phone Number [facility] [address] [place] [address] CT Head Wo Contrast (06/14/2019 8:31 PM INSIDE SALES) Specimen Narrative Performed At EXAM: CT HEAD WO CONTRAST RADIANT CLINICAL HISTORY: Seizure new nontraumatic >40 [...] appropria te moderation of exposure. Automated dose manager care management nology is applied to adjust radiation exposure [...] for further evaluatio n if clinically indicated. [facility]-[id number] Procedure Note [facility], Radiology Results Incoming - 06/14/2019 8:39 PM INSIDE SALES EXAM: CT HEAD WO CONTRAST CLINICAL HISTORY: [...] ensure appropriate moderation of exposure. Automated dose manager care management nology is applied to adjust radiation exposure [...] for fur ther evaluation if clinically indicated. [facility]-[id number] Performing Organization Address City/State/Zipcode Phone Number [facility] [address] [place] [address] Gastrointestinal panel (06/14/2019 5:48 AM INSIDE SALES)Only the most recent of2 results within the time period is included. Pathologist [facility] Gastrointestinal panel Negative for all pathogens tested: [place] Negative for Salmonella [facility] Negative for Campylobacter [facility] Negative for Diarrheagenic E coli/Shigella [...] Specimen Stool - Nonpreserved Performing Organization Address City/[facility]/Zipcode Phone Number [facility] DEPARTMENT OF PATHOLOGY AND [address] [place], [place] [address] [address] GEN[address] [address] Thyroid stimulating hormone (06/14/2019 5:14 AM INSIDE SALES) Pathologist [facility] TSH 1.95 0.27 - 4.20 uIU/mL [facility] IT[facility] Specimen Plasma specimen Performing Organization Address City/[facility] Centercode Phone Number [facility] DEPARTMENT OF PATHOLOGY AND [address] [place] [address] [phone] [address] T4, free (06/14/2019 5:14 AM INSIDE SALES) Pathologist Sig nature T4, free 0.8 (L) 0.9 - 1.7 ng/dL [facility] L Specimen Plasma specimen Performing Organization Address City/[facility] Centercode Phone Number [facility] DEPARTMENT OF PATHOLOGY AND [address] [place] [address] [phone] [address] Hemoglobin A1c (06/14/2019 5:14 AM INSIDE SALES) Hemoglobin A1C 12.6 (H) 4.0 - 5.6 % [facility] Comment: HOSPITAL HbA1c cutoffs for [...] 1 diabetes. Specimen Blood Performing Organization Address City/[facility] Centercode Phone Number [facility] DEPARTMENT OF PATHOLOGY AND [address] [place] [address] [phone] [address] Lipid panel (06/14/2019 5:14 AM INSIDE SALES) Cholesterol 177 <200 mg/dL [facility] Triglycerides 407 (H) <150 mg/dL [facility] HDL cholesterol 32 (L) >40 mg/dL [facility] LDL cholesterol 104 (H)Comment: <100 mg/dL [place] Result obtained by [facility] direct [facility] measurement Lipid panel [facility] interpretation Comment: [facility] Total Cholesterol (mg/dL) HOSPIT AL <200 Desirable [...] mg/dL) Specimen Plasma specimen Performing Organization Address City/[facility] Centercode Phone Number [facility] DEPARTMENT OF PATHOLOGY AND [address] [place] [address] [phone] [address] Manual differential (06/14/2019 4:59 AM INSIDE SALES) Manual differential PERFORMED [facility] Neutrophils 53.0 39.0 - 69.0 % [facility] Lymphocytes 36.0 25.0 - 45.0 % [facility] Monocytes 6.0 0.0 - 10.0 % [facility] Eosinophils 4.0 0.0 - 5.0 % [facility] Basophils 1.0 0.0 - 1.0 % [facility] Metamyelocytes 0 % [facility] Promyelocytes 0 % [facility] Platelet slide review Rebekah adequate [facility] Anisocytosis Moderate [facility] Polychromasia Moderate [facility] Ovalocytes Moderate [facility] Specimen Performing Organization Address City/[facility] Centercomi Phone Number [facility] DEPARTMENT OF PATHOLOGY AND [address] [place] [address] [phone] [address] Influenza antigen (06/12/2019 9:15 PM INSIDE SALES) Influenza antigen Negative for Influenza A/B antigen. [facility] Comment: HOSPITAL Specimen Information Specimen Source: Nares Specimen Site: Right Specimen Nares - Right Performing Organization Address City/[facility] Centercomi Phone Number [facility] DEPARTMENT OF PATHOLOGY AND [address] [place] [address] [phone] [place] [id number] [place] [address] XR Chest 1 Vw Portable (06/12/2019 8:55 PM INSIDE SALES) Specimen Narrative Performed At EXAMINATION: XR CHEST [...] No acute osseous abnormalities are visua lized. [facility]-[id number] Procedure Note Hm Interface, Radiology Results Incoming - 06/12/2019 9:01 PM INSIDE SALES EXAMINATION: XR CHEST 1 VW PORTABLE CLINICAL HISTORY: tachy COMPARISON: 03/20/2018 IMPRESSION: No radiographic evidence for acute cardi opulmonary process. Cardiomediastinal silhouette is within n ormal limits of size. No focal or confluent airspace consolida tion is seen on this single AP plane to suggest acute pneumonia. No sizable pleural effusion. No pneumothorax identified. No acute osseous abnormalities are visua lized. [facility]-[id number] Performing Organization Address City/State/Zipcode Phone Number [facility] [address] [place] [address] ECG ED Preliminary Interpretation - Not an Order (06/12/2019 7:50 PM INSIDE SALES) Narrative Performed At Guillermo Jeffery MD 06/22/2019 10 :44 AM ECG ED Preliminary Interpretation - Not an Order Performed by: Guillermo Jeffery MD Authorized by: Guillermo Jeffery MD ECG reviewed by ED Physician in the abse nce of a hat trimmer: yes Previous ECG: Previous ECG: Unavailable Interpretation: Interpretation: abnormal Rate: ECG rate: 113 ECG rate assessment: tachycardic Rhythm: Rhythm: sinus tachycardia Ectopy: Ectopy: none QRS: QRS axis: Normal QRS intervals: Normal Conduction: Conduction: abnormal Abnormal conduction: LPFB ST segments: ST segments: Normal Other findings: Other findings: prolonged qTc interval Partial thromboplastin time, activated (06/12/2019 7:49 PM INSIDE SALES) PTT 28.1 23.0 - 36.0 [facility] Comment: sec HOSPITAL PTT therapeutic range for unfractionated heparin is 61.0-112.0 seconds which corresponds to Anti-Xa 0.3-0.7 U/ml. Specimen Blood Performing Organization Address City/State/Zipcode Phone Number [facility] DEPARTMENT OF PATHOLOGY AND [address] [place] [address] [phone] [address] B natriuretic peptide (06/12/2019 7:49 PM INSIDE SALES) Pathologist Sig nature BNP 53 0 - 100 pg/mL [facility] Specimen Blood Narrative Performed At GLU results called to and read back by [facility] DEPARTMEN T OF PATHOLOGY AND GENOMIC TOSHIA PEREZ RN LIZBETH (name/location) MEDICINE at _ 06/12/2019 20:51 BY Performing Organization Address City/State/Zipcode Phone Number [facility] DEPARTMENT OF PATHOLOGY AND [address] [place] [address] [phone] [address] Comprehensive metabolic panel (06/12/2019 7:49 PM INSIDE SALES) Sodium 137 135 - 148 [facility] mEq/L [facility] Potassium 3.9 3.5 - 5.0 [facility] mEq/L [facility] Chloride 103 98 - 112 mEq/L [facility] CO2 19 (L) 24 - 31 mEq/L [facility] Anion gap 15@ANIO 7 - 15 mEq/L [facility] BUN 25 (H) 6 - 20 mg/dL [facility] Creatinine 2.04 (H) 0.70 - 1.20 [facility] mg/dL HOSPITAL Glucose 519 (HH) 65 - 99 mg/dL [facility] Calcium 10.1 8.3 - 10.2 [facility] mg/dL HOSPITAL Protein 8.4 (H) 6.3 - 8.3 g/dL [facility] Comment: HOSPITAL Pdigibo0150.6-7.0 g/dL 1 yahd7458.4-7.6 g/dL 7 months-3eikb124.1-7.3 g/dL 1-2 .6-7.5 g/dL >3 nzejc473.0-8.0 g/dL 18-2396065.3-8.3 g/dL Albumin 3.1 (L) 3.5 - 5.0 g/dL [facility] A/G ratio 0.6 (L) 0.7 - 3.8 [facility] Alkaline phosphatase 166 (H) 40 - 129 U/L [facility] AST 23 10 - 50 U/L [facility] ALT 24 5 - 50 U/L [facility] Total bilirubin 0.3 0.0 - 1.2 [facility] mg/dL HOSPITAL Specimen Plasma specimen Performing Organization Address City/State/Zipcode Phone Number [facility] DEPARTMENT OF PATHOLOGY AND [address] [place], [place] [address] GENOMIC MEDICINE [facility] [address] [place] [address] after 12/24/2018 Insurance Payer Benefit Plan / Subscriber ID Effective Dates Phone Addre ss Type Group Shipping Easy [facility] xxxxxxxxxxxx 2019-Presen Exchange CHOICE EXCHANGE EXCHANGE t [employer] Advance Directives For more information, please contact: [phone] Type Date Recorded Patient Compliance Consultant Explanati on Advance Directives, Living 03/20/2018 10:24 PM Will and Medical Power of [employer] Operations Superintendent Code Status Date Activated Date Inactivated Comments [...]
--- OUTSIDE RECORDS SUMMARY | 2019-12-25 19:43 | XMS REPORT | Continuity of Care Document ---
:1965 Author Organization [facility] t Address [address] [place] [address] Care Team Providers Name Role Phone Jere BOSS Primary Care Physician Lab, Fam Pob I Attending Clinician Unavailable Doctor Unassigned, Name Attending Clinician Unavailable Erick BOSS Attending Clinician Mario RN Attending Clinician Unavailable Ryan Jeffery MD Attending Clinician Chandana BOSS OTad Attending Clinician Lupe RN Attending Clinician Unavailable Maico Tyler MD Attending Clinician Ev Whitehead MD. Attending Clinician Farhad CORONA Attending Clinician Unavailable Hilario RE EXAMINER, L Attending Clinician Ev Mock Attending Clinician Noble Crawford MD Attending Clinician Robert BOSS I. Attending Clinician Tanvir Hammodn MD, Anthony Attending Clinician [phone] Erica Garcia Attending Clinician Odette Chavis MD Attending Clinician NOBLE CRAWFORD Attending Clinician Unavailable CHANDANA Admitting Clinician Unavailable NOBLE CRAWFORD Admitting Clinician Unavailable Payers Payer Name Policy Type Policy Number Effective Date Expiration Date [facility] xxxxxxxxxxxx 2019 [place] CHOICE 00:00:00 [facility] EX[facility] MARKETPLACExxxxxx -Pr esentExchange Problems Condition Condition Condition Status Onset Resolution Last Treating Co mments Source Name Details Category Date Date Treatment Clinician Date Diabetic Diabetic Disease Active [place] peripheral peripheral 2- Me thodi neuropathy neuropathy 00:00: st 00 Chronic Chronic Disease Active Angela kidney kidney 2-19 Methodi disease, disease, 00:00: st stage III stage III 00 (moderate) (moderate) Diarrhea, Diarrhea, Disease Active Ferdinand ston unspecifie unspecifie - Me thodi d d 00:00: st 00 Edema of Edema of Disease Active [place] left orbit left orbit 06-16 Me thodi 00:00: st 00 Hyperglyce Hyperglyce Disease Active H [facility] cristóbal cristóbal 2-15 Methodi 00:00: [...] 00 Center Acute Acute Disease Active 2017-04 Angela renal renal 1-23 Methodi failure failure 00:00: st 00 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-14 Meth susi diabetes diabetes 00:00: st mellitus mellitus 00 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 0-13 Methodi 00:00: st 00 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 Olea 0-13 Methodi 00:00: st 00 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 013 Method i posterior posterior 00:00: st communicat communicat 00 ing artery ing artery Chest pain Chest pain Disease Active [place] 8 Methodi 00:00: st 00 Essential Essential Disease Active Ferdinand ston hypertensi hypertensi 12-01 Me thodi on on 00:00: st 00 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 12-01 Methodi disease disease 00:00: st involving involving 00 [place] coronary coronary artery of artery of [place] heart with heart with angina angina pectoris pectoris Cirrhosis Cirrhosis Disease Active Ferdinand ston 12-01 Methodi 00:00: st 00 Hypertrigl Hypertrigl Disease [facility] yceridemia yceridemia 12-01 Me thodi 00:00: st 00 Depression Depression Disease Active H mars 12-01 Methodi 00:00: st 00 Allergies, Adverse Reactions, Alerts Allergy Allergy Status Severity Reaction(s) Onset Inactive Treating Comm ents Source Name Type Date Date Clinician Ketorola Propensi Active Hallucinatio [facility] ty to ns 2-15 Methodi adverse 00:00: st reaction 00 s to drug Codeine Drug Active Hives Also [facility] 00 Center Hydrocod Propensi Active Hives [facility] one-Acet ty to 01-06 [facility] - aminophe adverse 00:00: Medical n reaction 00 Center s Morphine Propensi Active Hives [facility] ty to 9-11 [facility] - adverse 00:00: Medical reaction 00 Center s Morphine Propensi Active Hives [place] ty to 3-16 Methodi adverse 00:00: st reaction 00 s to drug Codeine Propensi Active Hives Angela ty to 8-06 Methodi adverse 00:00: st reaction 00 s to drug Hydrocod Propensi Active Hives, [place] one-Acet ty to Itching 2-28 Methodi aminophe adverse 00:00: st n reaction 00 s to drug Family History Family Member Diagnosis Comments Start Date Stop Date Source Natural father No Known Problem [facility] Natural father Diabetes Angela Me thodist Natural mother Heart disease [facility] Natural mother Hypertension [facility] Natural mother Diabetes Angela [facility]ist Natural mother Hypertension Angela Moravian Social History Social Habit Start Date Stop Date Quantity Comments Source History [facility] Std Drinks [facility] History [facility] - Alcohol Binge Medical [facility] ter History of tobacco Cigarette Smoker Angela use Moravian Sex Assigned At Angela [facility]avian Cigarettes smoked 2019-07-06 2019-07-06 Angela current (pack per 00:00:00 00:00:[address] day) - Reported Alcohol intake 2019-07-06 2019-07-06 Current Angela 00:00:00 00:00:00 non-drinker of Moravian alcohol (finding) History [facility] 2019-01-06 2019-01-[address] [facility] - Alcohol Frequency 00:00:00 00:00:00 [facility] Tobacco Comment 2019-01-06 2019-01-06 [facility] 00:00:00 day, started Medical [facility] again 3 years ago Smoking Status Start Date Stop Date Source Current every day smoker 2019-07-06 00:00:00 Ferdinand edgar Haywoodist Medications Ordered Filled Start Stop Current Ordering Indication Dosage Frequency Signature Comments Components Source Medication Medication Date Date Medication? Clinician (SIG) Name Name insulin 2019- No 6U QD Inject 6 [place] lispro 3-21 04-20 Units Methodi (HumaLOG) 00:00: 23:[address] 100 unit/mL 00 :00 skin daily injection with breakfast for 30 days. pantoprazol 2019- No 40mg QD Take 1 Ferdinand ston e 3-21 04-20 tablet (40 Methodi (PROTONIX) 00:00: 23:59 mg total) s t 40 MG EC 00 :00 by mouth tablet daily for 30 days. gabapentin 2019- 2020- No 1800mg QD Take 1,800 [place] (NEURONTIN) 3-20 03-20 mg by Method i 300 mg 17:37: 00:[address] capsule 04 :00 every morning. citalopram 2019-2019- No 20mg QD Take 20 mg [place]a [...] Q6H Take 400 [place] (ADVIL,MOTR 3-20 03-20 mg by Method i IN) 200 MG 17:37: 00:[address] tablet 04 :00 every 6 (six) hours as needed for mild pain. aspirin 325 2019- No 325mg Take 325 Olea MG tablet -15 07-20 mg by Methodi 17:37: 00:[address] [...] Take 0.5 [place] (ZOCOR) 80 -15 08-19 tablets Metho di MG tablet 00:00: 23:59 ([address] 00 :00 total) by mouth nightly for 30 days. brimonidine 2019-2019- No 1[drp] Q.[id number] Administer [place] (ALPHAGAN) -20 - [id number] 1 drop Methodi 0.15 % 00:00: 23:[address] ophthalmic 00 :00 left eye solution every 8 (eight) hours for 30 days. calcium 2019-2019- No 667mg Q.[id number] Take 1 [place] acetate,tate -20 - [id number] capsule Methodi sphat bind, 00:00: 23:59 3D ([address] (PHOSLO) 00 :00 total) by 667 mg mouth 3 capsule (three) times a day with meals for 30 days. dorzolamide 2019-2019- No 1[drp] Q.5D Administer Angela -timolol 07-15 1 drop Methodi (COSOPT) 00:00: [...] tablet daily for 30 days. latanoprost 2019- No 1[drp] QD Administer Ole[place] (XALATAN) 07-15 1 drop Methodi 0.005 % 00:00: 23:[address] ophthalmic 00 :00 left eye solution nightly for 30 days. levETIRAcet 2019-2019- No 250mg Q.5D Take 1 [place] am (KEPPRA) 07-15 tablet Metho di 250 MG 00:00: 23:59 ([address] tablet 00 :00 total) by mouth 2 (two) times a day for 30 days. methocarbam 2019-2019- No 500mg [id number] Take 1 Angela oL 07-15 [id number] tablet Method i (ROBAXIN) 00:00: 23:59 3D ([address] 500 MG 00 :00 total) by tablet mouth 3 (three) times a day as needed for muscle spasms for up to 30 days. nystatin 2019-0 2020- No Q.5D Apply [place] (MYCOSTATIN 07-15 topically Me thodi ) 100,000 00:00: 23:59 2 (two) st unit/gram 00 :00 times a powder day for 30 days. polyethylen 2019-2019- No 17g QD Take 17 g Angela e glycol 07-15 by mouth Method i (MIRALAX) 00:00: 23:[address] 17 gram 00 :00 30 days. packet riFAXimin 2019-2019- No 550mg Q.5D Take 1 [place] (XIFAXAN) 07-15 tablet Methodi 550 mg 00:00: 23:59 ([address] tablet 00 :00 total) by mouth 2 (two) times a day for 30 days. sevelamer 2019- 2020- No 800mg Q.[id number] Take 1 [place] (RENVELA) 07-15 [id number] tablet M ethodi 800 mg 00:00: 23:59 3D ([address] tablet 00 :00 total) by mouth 3 (three) times a day with meals for 30 days. mineral 2019-2019- No QD Administer Ferdinand ston oil/petrola 07-15 to both Meth susi john,white 00:00: 23:59 [...] l 46 :00 times Center daily. furosemide Yes 20mg QD Take 1 [facility] (LASIX) 20 -16 tablet (20 Doris es - MG tablet 00:00: mg total) Med ical 00 by mouth Center daily. ranolazine 2018-0 Yes 500mg Q.5D Take [address] (RANEXA) 9-16 tablet [facility] - 500 MG 12 00:00: (500 mg Medic al hr tablet 00 total) by Cente r mouth 2 (two) times daily. travoprost 2018-0 Yes 1[drp] QD Place [address] (TRAVATAN -12 drop into [facility] - Z) 0.004 % [...] MG tablet 18:07: daily. Medica l 00 [facility] spironolact 2019-0 Yes 25mg QD Take 25 [...] MG tablet 18:06: daily. Medica l 59 [facility] gabapentin Yes 300mg QD Take [address] (NEURONTIN) 9-11 mg by [facility] - 300 MG 18:06: mouth Medical capsule 59 daily. [facility] ergocalcife 2017-04- No [id number] Q7D Take 1 [place] rol 06-05 1208 capsule Methodi (VITAMIN 00:00: 23:59 (50,000 st [...] No 50mg QD Take 50 mg [place] (TENORMIN) 06-04 03-20 by mouth Meth susi [...] blood 2019-07-16 12:27:46 160 mm[Hg] Ismaelto n [facility] pressure Diastolic blood 2019-07-16 12:27:46 80 mm[Hg] Ismaelt on Moravian pressure Heart rate 2019-07-16 12:27:46 64 /min Angela [facility] Body temperature 2019-07-16 12:27:46 36.61 Yesi [facility] ton Moravian Respiratory rate 2019-07-16 12:27:46 18 /min [facility] Moravian Oxygen saturation in 2019-07-16 12:27:46 100 /min [facility] Arterial blood by Pulse oximetry Body height 2019-07-06 13:11:00 170.2 cm Angela [facility]avian Body weight 2019-07-06 13:11:00 96.163 kg Angela [facility]avian BMI 2019-07-06 13:11:00 33.20 kg/m2 [facility] Systolic blood 2019-01-11 12:30:00 136 mm[Hg] [facility] Diastolic blood 2019-01-11 12:30:00 71 mm[Hg] [facility] S [facility] Heart rate 2019-01-11 12:30:00 80 /min [facility] Body temperature 2019-01-11 12:30:00 36 Yesi [facility] Respiratory rate 2019-01-11 12:30:00 18 /min [facility] Oxygen saturation in 2019-01-11 12:30:00 95 /min [facility] Arterial blood by Medical Ce nter Pulse oximetry Body height 2019-01-06 17:30:00 170.2 cm [facility] Body weight Measured 2019-01-06 17:30:00 102.967 kg [facility] BMI 2019-01-06 17:30:00 35.55 kg/m2 [facility] Procedures Procedure Date / Time [...] W/AUTO DIFF BASIC METABOLIC PANEL 2019-07-15 05:30:00 Andrwes Wright ESTIMATED GFR 2019-07-15 05:30:00 Andrews Wright Ut thodist POC GLUCOSE 2019-07-14 21:08:00 Milton Ellington POC GLUCOSE 2019-07-14 16:55:00 Milton Ellington POC GLUCOSE 2019-07-14 13:49:00 Milton Ellington POC GLUCOSE 2019-07-14 11:48:00 Milton Ellington HEMODIALYSIS 2019-07-14 09:13:12 Yunier Stephens ethodist Wiley POC GLUCOSE 2019-07-14 08:13:00 Milton Ellington BASIC METABOLIC PANEL 2019-07-14 05:10:00 Angelo Yunier hernández Moravian Wiley MAGNESIUM LEVEL 2019-07-14 05:10:00 Angelo Yunier Lefty [place] ethodist Wiley PHOSPHORUS LEVEL 2019-07-14 05:10:00 Angelo Yunier Olea Moravian Wiley HC COMPLETE BLD COUNT 2019-07-14 05:10:00 Tani StephensulSilvioNayan hernández Moravian W/AUTO DIFF Wiley ESTIMATED GFR 2019-07-14 05:10:00 Angelo Yunier Olea [facility] ethodist Wiley POC GLUCOSE 2019-07-14 02:44:00 Milton Ellington POC GLUCOSE 2019-07-13 21:27:00 Milton Ellington Moravian POC GLUCOSE 2019-07-13 16:22:00 Milton Ellingtno POC GLUCOSE 2019-07-13 13:08:00 Milton Ellington Moravian POC GLUCOSE 2019-07-13 07:55:00 Milton Ellington BASIC METABOLIC PANEL 2019-07-13 03:25:00 Angelo Yunier hernández Moravian Wiley MAGNESIUM LEVEL 2019-07-13 03:25:00 Angelo uYnier [place] ethodist Wiley PHOSPHORUS LEVEL 2019-07-13 03:25:00 Yunier Stephens Wiley ESTIMATED GFR 2019-07-13 03:25:00 Angelo Yunier Olea [facility] ethodist Wiley POC GLUCOSE 2019-07-12 21:00:00 Milton Ellington Moravian POC GLUCOSE 2019-07-12 17:06:00 Milton Ellingtonist POC GLUCOSE 2019-07-12 16:06:00 Milton Ellington Moravian POC GLUCOSE 2019-07-12 14:25:00 Milton Ellington POC GLUCOSE 2019-07-12 12:07:00 Milton Ellington HEMODIALYSIS 2019-07-12 08:45:38 Yunier Stephens ethodist Wiley POC GLUCOSE 2019-07-12 08:44:00 Milton Ellington BASIC METABOLIC PANEL 2019-07-12 04:00:00 Yunier Stephens Moravian Wiley MAGNESIUM LEVEL 2019-07-12 04:00:00 StephensYunier ethodist Wiley PHOSPHORUS LEVEL 2019-07-12 04:00:00 Yunier [...] COMPLETE BLD COUNT 2019-07-11 05:45:00 Yunier Stephens Moravian W/AUTO DIFF Wiley BASIC METABOLIC PANEL 2019-07-11 04:00:00 Yunier Stephens Moravian Wiley MAGNESIUM LEVEL 2019-07-11 04:00:00 Yunier Stephens ethodist Wiley PHOSPHORUS LEVEL 2019-07-11 04:00:00 Yunier Stephens Wiley ESTIMATED GFR 2019-07-11 04:00:00 Yunier Stephens [facility] ethodist Wiley POC GLUCOSE 2019-07-11 00:11:00 Milton Ellington POC GLUCOSE 2019-07-10 22:12:00 Milton Ellington POC GLUCOSE 2019-07-10 17:24:00 Milton Ellington BASIC METABOLIC PANEL 2019-07-10 13:40:00 Yunier Stephens Moravian Wiley MAGNESIUM LEVEL 2019-07-10 13:40:00 Yunier Stephens ethodist Wiley PHOSPHORUS LEVEL 2019-07-10 13:40:00 Angelo Yunier Johnson Wiley HC COMPLETE BLD COUNT 2019-07-10 13:40:00 Yunier Stephens W/AUTO DIFF Wiley FERRITIN LEVEL 2019-07-10 13:40:00 Angelo Yunier Olea [facility] ethodist Wiley TOTAL IRON BINDING CAPACITY 2019-07-10 13:40:00 Tim Stephens Wiley ESTIMATED GFR 2019-07-10 13:40:00 Yunier Stephens [facility] ethodist Wiley POC GLUCOSE 2019-07-10 12:34:00 Milton Ellington HEMODIALYSIS 2019-07-10 11:22:47 Yunier Stephens ethodist Wiley POC GLUCOSE 2019-07-10 08:16:00 Milton [...] HEPATIC FUNCTION PANEL 2019-07-08 04:00:00 Yris Lagos BASIC METABOLIC PANEL 2019-07-08 04:00:00 Yunier Stephens Wiley MAGNESIUM LEVEL 2019-07-08 04:00:00 Yunier Stephens ethodist Wiley PHOSPHORUS LEVEL 2019-07-08 04:00:00 Yunier Stephens Wiley ESTIMATED GFR 2019-07-08 04:00:00 Yris Lagos Me thodist POC GLUCOSE 2019-07-07 21:30:00 Milton Ellington HYPERSENSITIVITY 2019-07-07 17:30:00 [facility] Met hodjose PNEUMONITIS II Yoandy POC GLUCOSE 2019-07-07 17:19:00 Milton Ellington IMMUNOGLOBULIN G 2019-07-07 16:11:00 [facility] Met hodist Yoandy ANTI-NEUTROPHILIC 2019-07-07 14:30:00 Yunier Stephens CYTOPLASMIC ABS PANEL Wiley SS-B ANTIBODY 2019-07-07 14:30:00 [facility] Meth odist Yoandy CENTROMERE ANTIBODY 2019-07-07 14:30:00 [facility] Moravian Yoandy DOUBLE-STRANDED DNA (DSDNA) 2019-07-07 14:30:00 Tim Stephens Moravian ANTIBODIES, CRITHIDIA Wiley POC GLUCOSE 2019-07-07 12:08:00 Milton Ellington Moravian POC GLUCOSE 2019-07-07 07:41:00 Milton Ellington HEPATIC FUNCTION PANEL 2019-07-07 04:00:00 Yris Lagos Moravian BASIC METABOLIC PANEL 2019-07-07 04:00:00 Yunier Stephens Wiley MAGNESIUM LEVEL 2019-07-07 04:00:00 Yunier Stephens ethodist Wiley PHOSPHORUS LEVEL 2019-07-07 04:00:00 Yunier Stephens Wiley ESTIMATED GFR 2019-07-07 04:00:00 Yris Lagos [...] Wiley MAGNESIUM LEVEL 2019-07-06 05:20:00 Yunier Stephens M ethodist Wiley PHOSPHORUS LEVEL 2019-07-06 05:20:00 Yunier Stephens Wiley ESTIMATED GFR 2019-07-06 05:20:00 Yris Lagos thodist POC GLUCOSE 2019-07-06 04:50:00 Milton Ellington POC GLUCOSE 2019-07-05 21:41:00 Milton Ellington POC GLUCOSE 2019-07-05 18:11:00 Milton Ellington POC GLUCOSE 2019-07-05 16:19:00 Milton Ellington POC GLUCOSE 2019-07-05 12:39:00 Milton Ellington TTE COMPLETE, WO CONTRAST, 2019-07-05 09:25:06 Milton Ellington W DOPPLER ([id number]) POC GLUCOSE 2019-07-05 08:17:00 Milton Ellington BASIC METABOLIC PANEL 2019-07-05 05:14:00 Yunier Stephens Moravian Wiley MAGNESIUM LEVEL 2019-07-05 05:14:00 Yunier Stephens [...] BASIC METABOLIC PANEL 2019-07-04 05:16:00 Yunier Stephens Moravian Wiley MAGNESIUM LEVEL 2019-07-04 05:16:00 Yunier Stephens ethodist Wiley PHOSPHORUS LEVEL 2019-07-04 05:16:00 Yunier Stephens Wiley ESTIMATED GFR 2019-07-04 05:16:00 Yunier Stephens ethodist Wiley POC GLUCOSE 2019-07-03 21:52:00 Milton Ellington POC GLUCOSE 2019-07-03 16:16:00 Milton Ellington POC GLUCOSE 2019-07-03 12:31:00 Milton Ellington POC GLUCOSE 2019-07-03 11:50:00 Milton Ellington POC GLUCOSE 2019-07-03 07:48:00 Milton Ellington BASIC METABOLIC PANEL 2019-07-03 04:00:00 Yunier Stephens Moravian Wiley MAGNESIUM LEVEL 2019-07-03 04:00:00 Yunier Stephens ethodist Wiley PHOSPHORUS LEVEL 2019-07-03 04:00:00 Yunier Stephens Wiley VANCOMYCIN LEVEL, RANDOM 2019-07-03 04:00:00 Milton Ellington ESTIMATED GFR 2019-07-03 04:00:00 Yunier Stephens ethodist Wiley POC GLUCOSE 2019-07-02 21:29:00 Milton Ellington POC GLUCOSE 2019-07-02 18:48:00 Milton Ellington BASIC METABOLIC PANEL 2019-07-02 16:05:00 Yunier Stephens Moravian Wiley ESTIMATED GFR 2019-07-02 16:05:00 Yunier Stephens ethodist Wiley POC GLUCOSE 2019-07-02 16:03:00 Milton Ellington VENIPUNC NEED PHYS SKILL,DX 2019-07-02 14:59:18 Kaykay Rain OR RX POC GLUCOSE 2019-07-02 11:52:00 Milton Ellington POC GLUCOSE 2019-07-02 08:44:00 Milton Ellington VANCOMYCIN LEVEL, RANDOM 2019-07-02 04:00:00 Milton Ellington BASIC METABOLIC PANEL 2019-07-02 04:00:00 Yunier Stephens Moravian Wiley MAGNESIUM LEVEL 2019-07-02 04:00:00 Yunier Stephens ethodist Wiley PHOSPHORUS LEVEL 2019-07-02 04:00:00 Yunier Stephens Wiley ESTIMATED GFR 2019-07-02 04:00:00 Milton Ellington POC GLUCOSE 2019-07-01 21:39:00 Milton Ellington POC GLUCOSE 2019-07-01 17:04:00 Milton Ellington Moravian VANCOMYCIN LEVEL, TROUGH 2019-07-01 14:30:00 Milton Ellington Moravian POC GLUCOSE 2019-07-01 12:20:00 Milton Ellington POC GLUCOSE 2019-07-01 08:33:00 Milton Ellington Moravian POC GLUCOSE 2019-07-01 04:13:00 Milton Ellington BASIC METABOLIC PANEL 2019-07-01 04:00:00 Yunier Stephens Wiley MAGNESIUM LEVEL 2019-07-01 04:00:00 Yunier Stephens ethodist Wiley PHOSPHORUS LEVEL 2019-07-01 04:00:00 Yunier Stephens Wiley HEPATIC FUNCTION PANEL 2019-07-01 04:00:00 Yris Lagos ESTIMATED GFR 2019-07-01 04:00:00 Yunier Stephens ethodist Wiley POC GLUCOSE 2019-06-30 23:36:00 Milton Ellington Moravian POC GLUCOSE 2019-06-30 21:09:00 Milton Ellington Moravian POC GLUCOSE 2019-06-30 17:15:00 Milton Ellington POC GLUCOSE 2019-06-30 14:40:00 Milton Ellingtonist POC GLUCOSE 2019-06-30 11:58:00 Milton Ellington SURGICAL PATHOLOGY REQUEST 2019-06-30 11:36:00 Milton Ellingtonist POC GLUCOSE 2019-06-30 10:00:00 Milton Ellington IR TRANSJUGULAR LIVER 2019-06-30 09:39:34 Yris Lagos BIOPSY BASIC METABOLIC PANEL 2019-06-30 04:03:00 Yunier Stephensist Wiley MAGNESIUM LEVEL 2019-06-30 04:03:00 Yunier Stephens ethodist Wiley PHOSPHORUS LEVEL 2019-06-30 04:03:00 Yunier Stephens Wiley HEPATIC FUNCTION PANEL 2019-06-30 04:03:00 Yris Lagos VANCOMYCIN LEVEL, RANDOM 2019-06-30 04:03:00 Milton Ellington ESTIMATED GFR 2019-06-30 04:03:00 Milton Ellington POC GLUCOSE 2019-06-29 21:21:00 Milton Ellingtno POC GLUCOSE 2019-06-29 16:06:00 Milton Ellington POC [...] Lagos ESTIMATED GFR 2019-06-29 04:54:00 Yris Lagos Ut thodist POC GLUCOSE 2019-06-28 20:33:00 Milton Ellington POC GLUCOSE 2019-06-28 16:06:00 Milton Ellington POC GLUCOSE 2019-06-28 12:29:00 Milton Ellington HEPATIC FUNCTION PANEL 2019-06-28 12:23:00 Yris Lagos ECG 12-LEAD 2019-06-28 09:41:10 Milton Ellington POC GLUCOSE 2019-06-28 09:14:00 Milton Ellington TROPONIN 2019-06-28 09:13:00 Milton Ellington HEPATIC FUNCTION PANEL 2019-06-28 09:13:00 Milton Ellington BASIC METABOLIC PANEL 2019-06-28 05:22:00 Angelo Yunier hernández Moravian Wiley MAGNESIUM LEVEL 2019-06-28 05:22:00 Angelo Yunier Olea [facility] ethodist Wiley PHOSPHORUS LEVEL 2019-06-28 05:22:00 Angelo Yunier Olea Moravian Wiley VANCOMYCIN LEVEL, RANDOM 2019-06-28 05:22:00 Milton Ellington ESTIMATED GFR 2019-06-28 05:22:00 Milton Ellington POC GLUCOSE 2019-06-27 21:03:00 Milton Ellington POC GLUCOSE 2019-06-27 17:04:00 Milton Ellington POC GLUCOSE 2019-06-27 14:07:00 Milton Ellington POC GLUCOSE 2019-06-27 11:57:00 Milton Ellington POC GLUCOSE 2019-06-27 08:26:00 Milton Ellington ECG 12-LEAD 2019-06-27 08:13:50 Usha Oquendo odist BASIC METABOLIC PANEL 2019-06-27 05:14:00 Angelo KatianaSilvioNayan hernández Moravian Wiley MAGNESIUM LEVEL 2019-06-27 05:14:00 Angelo Yunier [place] ethodist Wiley PHOSPHORUS LEVEL 2019-06-27 05:14:00 Angelo Yunier Olea Moravian Wiley VANCOMYCIN LEVEL, RANDOM 2019-06-27 05:14:00 Milton Ellington ESTIMATED GFR 2019-06-27 05:14:00 Milton Ellington POC GLUCOSE 2019-06-26 21:21:00 Milton Ellington POC GLUCOSE 2019-06-26 19:41:00 Milton Ellington POC GLUCOSE 2019-06-26 19:12:00 Milton Ellington ULTRAFILTRATION 2019-06-26 13:39:23 Andrews Wright Ut thodist POC GLUCOSE 2019-06-26 12:05:00 Milton Ellington POC GLUCOSE 2019-06-26 08:54:00 Milton Ellington BASIC METABOLIC PANEL 2019-06-26 06:25:00 Yunier Stephens Moravian Wiley MAGNESIUM LEVEL 2019-06-26 06:25:00 Yunier Stephens ethodist Wiley PHOSPHORUS LEVEL 2019-06-26 06:25:00 Yunier Stephens Wiley HC COMPLETE BLD COUNT 2019-06-26 06:25:00 Yunier Stephens Moravian W/AUTO DIFF Wiley VANCOMYCIN LEVEL, RANDOM 2019-06-26 06:25:00 Milton Ellington ESTIMATED GFR 2019-06-26 06:25:00 Milton Ellington POC GLUCOSE 2019-06-25 23:39:00 Milton Ellington HEMODIALYSIS 2019-06-25 21:44:30 Andrews Wright Ut thodist POC GLUCOSE 2019-06-25 21:14:00 Milton Ellington BASIC METABOLIC PANEL 2019-06-25 18:45:00 Yunier Stephens Moravian Wiley PHOSPHORUS LEVEL 2019-06-25 18:45:00 Yunier Stephens Wiley ESTIMATED GFR 2019-06-25 18:45:00 Yunier Stephens ethodist Wiley POC GLUCOSE 2019-06-25 15:45:00 Milton Ellington POC GLUCOSE 2019-06-25 11:30:00 Milton Ellington POC GLUCOSE 2019-06-25 07:47:00 Milton Ellingtonist POC GLUCOSE 2019-06-25 00:05:00 Milton Ellington POC GLUCOSE 2019-06-24 21:12:00 Milton Ellington POC GLUCOSE 2019-06-24 16:22:00 Milton Ellington POC GLUCOSE 2019-06-24 13:17:00 Milton Ellington HEMODIALYSIS 2019-06-24 11:11:02 Yunier Stephens ethodist Wiley POC GLUCOSE 2019-06-24 07:35:00 Milton Ellington BASIC METABOLIC PANEL 2019-06-24 04:00:00 StephensYunier Moravian Wiley MAGNESIUM LEVEL 2019-06-24 04:00:00 Angelo Yunier [place] ethodist Wiley PHOSPHORUS LEVEL 2019-06-24 04:00:00 Angelo Yunier Olea Moravian Wiley HEPATIC FUNCTION PANEL 2019-06-24 04:00:00 Yris Lagos Moravian HC COMPLETE BLD COUNT 2019-06-24 04:00:00 StephensYunier Moravian W/AUTO DIFF Wiley ESTIMATED GFR 2019-06-24 04:00:00 Stephens, Yunier [place] ethodist Wiley POC GLUCOSE 2019-06-23 18:00:00 Milton Ellington HEMODIALYSIS 2019-06-23 12:21:38 Stephens, Yunier [place] ethodist Wiley POC GLUCOSE 2019-06-23 11:18:00 Milton Ellington IR TUNNELED DIALYSIS 2019-06-23 10:03:03 Milton Ellington CATHETER PLACEMENT POC GLUCOSE 2019-06-23 09:54:00 Milton Ellington POC GLUCOSE 2019-06-23 08:19:00 Milton Ellington BASIC METABOLIC PANEL 2019-06-23 05:30:00 Yunier Stephens Moravian Wiley MAGNESIUM LEVEL 2019-06-23 05:30:00 StephensYunier ethodist Wiley PHOSPHORUS LEVEL 2019-06-23 05:30:00 StephensYunier Wiley HEPATIC FUNCTION PANEL 2019-06-23 05:30:00 Yris Lagos HC COMPLETE BLD COUNT 2019-06-23 05:30:00 StephensYunier Moravian W/AUTO DIFF Wiley ESTIMATED GFR 2019-06-23 05:30:00 StephensYunier ethodist Wiley POC GLUCOSE 2019-06-22 21:30:00 Milton Ellington POC GLUCOSE 2019-06-22 12:28:00 Milton Ellington POC GLUCOSE 2019-06-22 08:38:00 Milton Ellington BASIC METABOLIC PANEL 2019-06-22 04:30:00 Yunier Stephens Wiley MAGNESIUM LEVEL 2019-06-22 04:30:00 Yunier Stephens ethodist Wiley PHOSPHORUS LEVEL 2019-06-22 04:30:00 Yunier Stephens Wiley HC COMPLETE BLD COUNT 2019-06-22 04:30:00 Yunier Stephens Moravian W/AUTO DIFF Wiley HEPATIC FUNCTION PANEL 2019-06-22 04:30:00 Yris Lagos ESTIMATED GFR 2019-06-22 04:30:00 Yris Lagos Ut thodist POC GLUCOSE 2019-06-22 00:07:00 Milton Ellington [...] Ellington GRAM STAIN 2019-06-20 17:32:00 Milton Ellington [facility] POC GLUCOSE 2019-06-20 15:51:00 Milton Ellington [facility] POC GLUCOSE 2019-06-20 12:25:00 Milton Ellington POC GLUCOSE 2019-06-20 07:34:00 Milton Ellington HEPATIC FUNCTION PANEL 2019-06-20 04:00:00 Yris Lagos [facility] BASIC METABOLIC PANEL 2019-06-20 04:00:00 Yunier Stephens [facility] MAGNESIUM LEVEL 2019-06-20 04:00:00 Yunier Stephens ethodist [facility] PHOSPHORUS LEVEL 2019-06-20 04:00:00 Yunier Stephens [facility] ESTIMATED GFR 2019-06-20 04:00:00 Yris Lagos thodist POC GLUCOSE 2019-06-19 21:31:00 Milton Ellington [facility] CREATININE LEVEL, URINE, 2019-06-19 19:06:00 Javan Mcdowell [facility] RANDOM PROTEIN, URINE, RANDOM 2019-06-19 19:06:00 Javan Mcdowell [facility] POC GLUCOSE 2019-06-19 16:08:00 Milton Ellington [facility] POC GLUCOSE 2019-06-19 12:34:00 Milton Ellington [facility] POC GLUCOSE 2019-06-19 07:42:00 Milton Ellington [facility] ANTI MITOCHONDRIA SCREEN 2019-06-19 00:00:00 Yris Lagos [facility] HEPATIC FUNCTION PANEL 2019-06-19 00:00:00 Yris Lagos [facility] BASIC METABOLIC PANEL 2019-06-19 00:00:00 Yunier Stephens [facility] MAGNESIUM LEVEL 2019-06-19 00:00:00 Yunier Stephens ethodist [facility] PHOSPHORUS LEVEL 2019-06-19 00:00:00 Yunier Stephens [facility] ESTIMATED GFR 2019-06-19 00:00:00 Yunier Stephens [...] 04:00:00 Yris Lagos CERULOPLASMIN LEVEL 2019-06-18 04:00:00 Fauria, Yris Johnson ALPHA FETOPROTEIN 2019-06-18 04:00:00 Demond Yris Johnson ALPHA-1 ANTITRYPSIN LEVEL 2019-06-18 04:00:00 Demond Yris Haywoodist ANNE 2019-06-18 04:00:00 Abhilash Lagoscelestine Olea Me thodist GGT 2019-06-18 04:00:00 Demond Yris [place] ESTIMATED GFR 2019-06-18 04:00:00 Abhilash Lagoscelestine Olea Me [facility] POC GLUCOSE 2019-06-17 21:17:00 Milton Ellington POC GLUCOSE 2019-06-17 17:07:00 Milton Ellington US ABDOMEN COMPLETE 2019-06-17 16:48:45 Demond Yris lynne [facility] US ABDOMINAL DOPPLER 2019-06-17 16:48:35 Demond Yris Cruz on [facility] US RENAL 2019-06-17 14:26:40 Usha Oquendo Meth [...] HEAD WO CONTRAST 2019-06-14 20:31:08 Milton Ellington [facility] POC GLUCOSE 2019-06-14 16:31:00 Milton Ellington POC [...] 2019-06-13 04:00:00 Milton Ellington TROPONIN 2019-06-13 01:36:00 Mitlon Ellington TROPONIN 2019-06-12 22:55:00 Milton Ellington GASTROINTESTINAL PANEL 2019-06-12 22:05:00 Guillermo Jeffery INFLUENZA ANTIGEN 2019-06-12 21:15:00 Guillermo Jeffery XR CHEST 1 VW PORTABLE 2019-06-12 20:55:50 Giullermo Jeffery ECG ED PRELIMINARY 2019-06-12 19:50:09 Guillermo Jeffery INTERPRETATION URINE CULTURE 2019-06-12 19:49:00 Guillermo Jeffery Me [facility]ist HC COMPLETE BLD COUNT 2019-06-12 19:49:00 Guillermo Jefferyist W/AUTO DIFF COMPREHENSIVE METABOLIC 2019-06-12 19:49:00 Guillermo [...] STRIP - SCAN 2019-01-12 15:42:05 Provider, Ronit [facility] POCT-GLUCOSE METER 2019-01-11 12:15:00 Julia Chavis [facility] BASIC METABOLIC PANEL (7) 2019-01-11 05:03:00 Joey Garcia [facility] CBC W/PLT COUNT & AUTO 2019-01-11 05:03:00 Kecia Logan [facility] POCT-GLUCOSE METER 2019-01-10 20:31:00 Joey Garcia [facility] POCT-GLUCOSE METER 2019-01-10 17:28:00 Jose Joey Erica [facility] CT BRAIN WITHOUT IV 2019-01-10 11:31:00 Toribio Clarke [facility] CHEST WITHOUT IV 2019-01-10 11:31:00 Jose Judegisella Maldonado [facility] D-DIMER 2019-01-10 11:00:00 Jose Domingagisella Erica [facility] XR CHEST 1 VIEW 2019-01-10 07:16:00 [facility] ECG 12-LEAD 2019-01-10 06:30:[address] [facility] BASIC METABOLIC PANEL (7) 2019-01-10 06:11:00 Darnell Renner [facility] B-TYPE NATRIURETIC FACTOR 2019-01-10 06:11:00 Michael Abdullahi [facility] (BNP) [facility] TROPONIN I 2019-01-10 06:11:00 Jose Judegisella Maldonado [facility] CBC W/PLT COUNT & AUTO 2019-01-10 06:11:00 Kecia Logan [facility] ECG 12-LEAD 2019-01-10 06:01:23 Unknown, Hl7 Doctor [facility] TROPONIN I 2019-01-09 23:14:00 Jose Judegisella Maldonado [facility] POCT-GLUCOSE METER 2019-01-09 21:16:00 Tanvir Hammond [facility] TROPONIN I 2019-01-09 18:27:00 Jose Judegisella Maldonado [facility] POCT-GLUCOSE METER 2019-01-09 18:03:[address] [facility] POCT-GLUCOSE METER 2019-01-09 12:10:[address] [facility] S [facility] POCT-GLUCOSE METER 2019-01-09 08:08:00 Hirzallah, Mohammad [facility] APTT 2019-01-09 04:35:00 [facility]IC METABOLIC PANEL (7) 2019-01-09 04:35:00 Darnell Renner [facility] CBC W/PLT COUNT & AUTO 2019-01-09 04:35:[address] [facility] S [facility] DIFFERENTIAL [facility] POCT-GLUCOSE METER 2019-01-08 22:07:00 RowenaHeavenwawakaerica [facility] ECHOCARDIOGRAM REPORT - 2019-01-08 21:20:[address] [facility] POCT-GLUCOSE METER 2019-01-08 17:02:00 [facility] APTT 2019-01-08 16:03:00 [facility] BASIC METABOLIC PANEL (7) 2019-01-08 16:03:00 German Rennerzandra Apple [facility] PT/APTT 2019-01-08 16:03:00 [facility] POCT-GLUCOSE METER 2019-01-08 11:49:00 [facility] POCT-GLUCOSE METER 2019-01-08 07:33:00 RowenaHeavenwawakaerica [facility] APTT 2019-01-08 04:27:00 Agueda Cruz [facility] CBC W/PLT COUNT & AUTO 2019-01-08 04:22:[address] [facility] S [facility] DIFFERENTIAL [facility] POCT-GLUCOSE METER 2019-01-07 22:08:00 RowenaHeavenwawakaerica [facility] POCT-GLUCOSE METER 2019-01-07 18:41:00 RowenaHeavenwawakaerica [facility] APTT 2019-01-07 18:40:00 Ahmad, [facility] ECHO W CONTRAST & DOPPLER 2019-01-07 16:16:26 Ozzy Bey [facility] POCT-GLUCOSE METER 2019-01-07 14:25:00 [facility] ECG 12-LEAD 2019-01-07 13:40:29 [facility] TROPONIN I 2019-01-07 13:21:00 [facility] POCT-GLUCOSE METER 2019-01-07 12:59:00 Rowena [facility] POCT-GLUCOSE METER 2019-01-07 11:58:00 Rowena [facility] APTT 2019-01-07 11:53:00 Anthony [facility] POCT-GLUCOSE METER 2019-01-07 11:03:00 [facility] POCT-GLUCOSE METER 2019-01-07 10:19:00 [facility] POCT-GLUCOSE METER 2019-01-07 09:09:00 [facility] POCT-GLUCOSE METER 2019-01-07 08:04:00 [facility] POCT-GLUCOSE METER 2019-01-07 06:56:00 [facility] BASIC METABOLIC PANEL (7) 2019-01-07 06:01:00 Kecia Logan [facility] MAGNESIUM 2019-01-07 06:01:00 Kecia Logan [facility] PHOSPHORUS 2019-01-07 06:01:00 Doreen [facility] TROPONIN I 2019-01-07 06:01:00 Kecia Logan [facility] APTT 2019-01-07 06:01:00 Anthony [facility] CBC W/PLT COUNT & AUTO 2019-01-07 06:01:00 Kecia Logan [facility] POCT-GLUCOSE METER 2019-01-07 05:59:00 [facility] POCT-GLUCOSE METER 2019-01-07 04:55:00 [facility] POCT-GLUCOSE METER 2019-01-07 04:04:00 [facility] POCT-GLUCOSE METER 2019-01-07 02:56:00 [facility] POCT-GLUCOSE METER 2019-01-07 01:56:00 [facility] POCT-GLUCOSE METER 2019-01-07 01:02:00 [facility] POCT-GLUCOSE METER 2019-01-07 00:13:00 [facility] TROPONIN I 2019-01-06 23:59:00 Anthony [facility] B-TYPE NATRIURETIC FACTOR 2019-01-06 23:59:[address] [facility] (BNP) [facility] APTT 2019-01-06 23:59:00 Anthony [facility] POCT-GLUCOSE METER 2019-01-06 23:09:00 [facility] XR CHEST 1 VIEW 2019-01-06 22:50:00 Anthony [facility] PORTABLE[facility]BEDSIDE [facility] ECG 12-LEAD 2019-01-06 22:10:07 Anthony [facility] POCT-GLUCOSE METER 2019-01-06 22:05:00 [facility] BRAIN WITHOUT IV 2019-01-06 21:23:00 [facility] 12-LEAD 2019-01-06 20:24:31 Doreen [facility] HEPATIC FUNCTION PANEL 2019-01-06 19:15:00 Doreen, [facility] PROTHROMBIN TIME/INR 2019-01-06 19:15:00 Doreen [facility] APTT 2019-01-06 19:15:00 Doreen [facility] TROPONIN I 2019-01-06 19:15:00 Doreen [facility] HEMOGLOBIN A1C 2019-01-06 19:15:00 Doreen [facility] BASIC METABOLIC PANEL (7) 2019-01-06 19:15:00 Genny Stephens [facility] I [facility] CBC W/PLT COUNT & AUTO 2019-01-06 19:15:00 Doreen [facility] POCT-GLUCOSE METER 2019-01-06 17:46:00 Jamel Crawford [facility] Planned Activity Planned Date Details Comments Source Future Scheduled 2021-06-30 DIABETIC RETINAL EYE [facility] 00:00:00 EXAM [code = DIABETIC RETINAL EYE EXAM] Future Scheduled 2020-01-27 INFLUENZA VACCINE [place] [facility] 00:00:00 [code = INFLUENZA VACCINE] Future Scheduled 2017-07-30 COLONOSCOPY SCREENING [place] [facility] 00:00:00 [code = COLONOSCOPY SCREENING] Future Scheduled 2017-07-30 SHINGLES VACCINES [place] [facility] 00:00:00 (#1) [code = SHINGLES VACCINES (#1)] Future Scheduled 1977-07-30 DIABETIC FOOT EXAM [place] [facility] 00:00:00 [code = DIABETIC FOOT EXAM] Encounters Start End Encounter Admission Attending Care Care Encounter Source Date/Time Date/Time Type Type Clinicians Facility Department ID 2019-12-24 2019-12-24 Laboratory Lab, Adc [facility] [id number] 13:56:40 14:16:40 Only Fam Pob I Health [id number] [place] 4.2.7.2.686 [place] [id number] nal 0[address] One 2019-10-01 2019-10-01 Orders Doctor MARCE [id number] 00:00:00 00:00:00 Only Unassigned, PRISCILA 350.1.13.10 [place] 4.2.7.2.686 [id number] 2019-09-21 2019-09-21 Orders Doctor MARCE [id number] 00:00:00 00:00:00 Only Unassigned, PRISCILA 350.1.13.10 [place] 4.2.7.2.686 [id number] 2019-06-12 2019-07-16 [facility] [id number] Angela 00:00:00 00:00:00 [place] [address] 2019-06-22 2019-06-22 Patient Doctor MARCE [id number] 00:00:00 00:00:00 Secure Msg Unassigned, PRISCILA 350.1.13.10 [place] [id number] 2019-06-14 2019-06-14 Telephone MARCE Rich [id number] 00:00:00 00:00:00 Yvette Villavicencio PRISCILA 350.1.13.10 [facility] 4.2.7.2.686 [id number] 2019-06-14 2019-06-14 Telephone Ceci [facility] [id number] 00:00:00 00:00:00 [facility] 350.1.13.10 [place] 4.2.7.2.686 Professio [id number] nal 0[address] One 2019-06-03 2019-06-03 Telephone Ceci, [facility] [id number] 00:00:00 00:00:00 [facility] 350.1.13.10 [place] 4.2.7.2.686 Professio [id number] nal 044 [address] One 2019-05-26 2019-05-26 Office Ceci [facility] [id number] 07:34:38 09:02:52 Visit [facility] 350.1.13.10 [place] 4.2.7.2.686 Professio [id number] nal 044 Office [address] One Results Test Description Test Time Test Comments Results Result Comments Source POC glucose 2019-07-16 12:30:05 Test Item Value Reference Range Interpretation Comme nts POC glucose (test code = 253 mg/dL 65-99 H Ope rator Name: Ney Child 79768-1) ID: [id number] hartable: [facility] 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 Interpretation (test code = Abnormal 39187-8) Lefty MethodistBasic metabolic [id number] 07:23:50 Test Item Value Reference Range Interpretation Comments Sodium (test code = 2951-2) 142 135- 148 mEq/L Potassium (test code = 2823-3) 4.3 3.5- 5.0 mEq/L Chloride (test code = 5-0) 105 98- 112 mEq/L CO2 (test code = 2027-9) 27 24- 31 mEq/L Anion gap (test code = 20612-7) 10@ANIO 7- 15 mEq/L BUN (test code = 3094-0) 46 mg/dL 6-20 H Creatinine (test code = 2160-0) 4.61 mg/dL 0.7-1.2 H Glucose (test code = 2345-7) 189 mg/dL 65-99 H Calcium (test code = 90570-1) 8.7 mg/dL 8.3-10.2 Lab Interpretation (test code = Abnormal 60335-8) Lefty MethodistEstimated [id number] 07:23:50 Test Item Value Reference Range Interpretation Comments Estimated GFR (test 14 mL/min/1.73 m2 A Roxy rowe Units code = 5488) InterpretationG 1 >=90 Cora l or highG2 60-89 Mildly decrease dG3a 45-59 Mil dly to moderately decr ejfasM6z 30-44 Moderately to s everely decreasedG4 15-29 Severe ly decreasedG5 <15 Kidney jesica lureThe eGFR was calcul ated using the Chron ic Kidney Disease Epidemiology Collaboration ( CKD-EPI) equation. Interpretation is based on recommendati ons of the National Ki dney Foundation-Kidn ey Disease Outcome s Quality Initiat christa (NKF-KDOQI) pub lished in 2013. Lab Interpretation Abnormal (test code = 09742-7) Lefty MethodistPhosphorus [id number] 07:23:49 Test Item Value Reference Range Interpretation Comments Phosphorus (test code = 2777-1) 4.3 mg/dL 2.4-4.5 Angela MethodistCBC with platelet and zscdwizkgwog2339-02-74 07:33:09 Test Item Value Reference Range Interpretation Comments WBC (test code = 70693-9) 6.44 4.50- 11.00 k/uL RBC (test code = 00581-0) 3.54 m/uL 4.4-6 L HGB (test code = 718-7) 10.6 g/dL 14-18 L HCT (test code = 4544-3) 31.2 % 41-51 L MCV (test code = 787-2) 88.1 fL 82-100 MCH (test code = 785-6) 29.9 pg 27-34 MCHC (test code = 786-4) 34.0 g/dL 31-37 RDW - SD (test code = 44.3 fL 37-55 84744-4) MPV (test code = 25546-9) 12.1 fL 8.8-13.2 Platelet count (test code 157 150- 400 k/uL = 93149-6) Nucleated RBC (test code 0.00 /100 WBC = 49655-6) Neutrophils (test code = 48.0 % 39-69 95155-8) Lymphocytes (test code = 32.5 % 25-45 89115-3) Monocytes (test code = 7.8 % 0-10 29329-7) Eosinophils (test code = 10.6 % 0-5 H 34057-3) Basophils (test code = 0.9 % 0-1 31860-0) Immature granulocytes 0.2 % 0-1 "Immat ure (test code = 45579-8) granul ocytes" (promyelocytes, myelocytes, metamyelocytes) Lab Interpretation (test Abnormal code = 92152-7) Angela MethodistMagnesium [id number] 07:17:31 Test Item Value Reference Range Interpretation Comments Magnesium (test code = 64951-6) 1.9 mg/dL 1.6-2.6 Angela MethodistHypersensitivity pneumonitis [id number] 10:14:04 Test Item Value Reference Interpretation Comments Range Aspergillus flavus None Detected None-Detected Testing includes (test code = 92221-4) antibo dies directed at Aspergillus flavus, Aspergi llus fumigatus #2, Aspergillus fum igatus #3, Saccharomon ospora viridis, and Thermoactinomyc es candidus. Aspergillus fumigatus None Detected None-Detected #2 (test code = 61269-2) Aspergillus fumigatus None Detected None-Detected #3 (test code = 16878-0) Saccharomonospora None Detected None-Detected viridis (test code = 28234-8) Thermoactinomyces None Detected None-Detected Performe d by SRINIVAS barlow (test code = Labora shaheed,500 10555-0) [facility] [place] [address] kuk .[employer], Roberto Almaguer MD, La b. Director Thermoactinomyces NOT PERFORMED saccharii (test code = WITH THIS 75669-8) PANEL Angela MethodistHypersensitivity pneumonitis [id number] 01:53:46 Test Item Value Reference Interpretation Comments Range Aspergillus fumigatus None Detected None-Detected #1 (test code = 6808-0) Aspergillus fumigatus None Detected None-Detected #6 (test code = 6809-8) Aureobasidium None Detected None-Detected Testing incl udes pullulans (test code = antib odies directed 6810-6) at Aureobasidiu m pullulans, Aspergillus fum igatus #1, Aspergillus fumigatus #6, Micropolyspora faeni, Brave Serum an d Thermoactinomyc es vulgaris #1. Brave serum (test None Detected None-Detected code = 6733-0) Micropolyspora faeni None Detected None-Detected (test code = 6818-9) Thermoactinomyces None Detected None-Detected Performe d by SRINIVAS vulgaris #1 (test code [facility],500 = 6821-3) Manuela Hansen [place] [id number] www .[employer], Roberto Almaguer MD, La b. Director Angela MethodistCT Chest Wo [id number] 10:29:13Hm Interface, Radiology Results 07/11/2019 10:32 AM [...] of improvement of multifocal pneumonia. Recommend clinical correlation..[facility]-[id number] MethodistFerritin [id number] 14:34:03 Test Item Value Reference Range Interpretation Comments Ferritin level (test code = 2276-4) 214 ng/mL 30-400 Angela MethodistTotal iron binding [id number] 14:29:17 Test Item Value Reference Range Interpretation Comments Iron level (test code = 2498-4) 72 ug/dL 59-158 Iron binding capacity (test code = 298 ug/dL 412-769 2335-7) % Saturation (test code = 2502-3) 24.2 % 20-40 Angela MethodistAnti-neutrophilic cytoplasmic Abs [id number] 15:24:12 Test Item Value Reference Range Interpretation Comments ANCA screen (test code = 3472) Negative Negative Angela MethodistFL Modified Barium Yiiwzxp1436-92-87 15:02:46Hm Interface, Radiology Results Incoming - 07/09/2019 [...] refer to Speech Pathology report for further details.[facility]-[id number] and approved by executive vice president/fellow: Eugenia Escamilla M.D.I, Adriana Morales MD, personally reviewed the images and resident's/fellow's findings and agree with the final report.Olea MethodistDNA Ab [id number] 14:55:49 Test Item Value Reference Range Interpretation Comments DNA Ab screen (test code = 1297) Not Detected Not-Detected Angela MethodistHepatic function [id number] 07:12:14 Test Item Value Reference Range Interpretation Comments Albumin (test code = 2.4 g/dL 3.5-5 L 1751-7) Total bilirubin (test code <0.2 0-1.2 = 1974-) Bilirubin direct (test <0.2 0-0.3 code = 1967-7) Alkaline phosphatase (test 133 U/L 40-129 H code = 6768-6) Protein (test code = 6.9 g/dL 6.3-8.3 -[place] n 2885-2) 4.6-7.0 g /dL1 week 4.4-7.6 g/dL 7 months-1year 5.1-7.3 g/dL 1-2 years 5.6-7.5 g/dL>3 years 6.0-8.0 g/pU11-970 6.3-8. 3 g/dL ALT (test code = 1742-6) 20 U/L 5-50 AST (test code = 1920-8) 20 U/L 10-50 Lab Interpretation (test Abnormal code = 53097-4) Olea MethodistImmunoglobulin [id number] 18:32:35 Test Item Value Reference Range Interpretation Comments IgG (test code = 2465-3) 1005 mg/dL 700-1600 Olea MethodistCentromere [id number] 18:10:06 Test Item Value Reference Range Interpretation Comments Centromere antibody <0.2 0.0- 0.9 AI (test code = 8068-9) Centromere antibody Negative AI Anti-kyrie tromere interp (test code = antibodi es are found 16286-8) in patients wit h systemic sclero sis (SSc or sclerod obinna), especially for those with limited cu taneous or CREST syndro me. Anti-centromere antibodies may also be found in patien ts with other rheumatic or connective tiss ue diseases. Angela MethodistScl-70 yekwtybd8123-02-07 18:10:06 Test Item Value Reference Range Interpretation Comments Scleroderma SCL-70 Ab <0.2 0.0- 0.9 AI (test code = 33847-5) Scl-70 antibody interp Negative AI Anti- Scl-70 (test code = 5268) (topoisom erase I) antibodies are found in patients with s ystemic sclerosis (SSc or scleroderma), a nd have been reported t o be predictive of d iffuse cutaneous invol vement. Anti-Scl-70 ant ibodies may also be pre sent in patients with s ystemic lupus erythemat osus (SLE). Olea MethodistSS-A qkarmzme3759-07-17 18:10:06 Test Item Value Reference Range Interpretation Comments Sjogren's SS-A <0.2 0.0- 0.9 AI antibody (test code = 11475-2) SS-A antibody interp Negative AI SS-A an tibody is (test code = 2235) sensitive for Sjogren's syndrome, but m ay also be positive with s ystemic lupus erythemat osus (SLE), and syst emic sclerosis. Olea MethodistSS-B nnczygkd2887-15-08 18:10:05 Test Item Value Reference Range Interpretation Comments Sjogren's SS-B <0.2 0.0- 0.9 AI antibody (test code = 3001) SS-B antibody interp Negative AI SS-B/La antibody is seen (test code = 2237) in patien ts with Sjogren syndrome, but m ay also be positive with s ystemic lupus erythemat osus (SLE), and syst emic sclerosis. Angela Methodpinon health centerCT Cardiac Ofxtxdfl0606-10-28 19:51:26Hm Interface, Radiology Results 07/06/2019 7:54 PM CDTEXAMINATION: CT CARDIAC OVERREADCL [...] characterization with CT of the chest is recommendedAngela MethodistCv cta coronary arteries w contrast and ffr if rhcfae1056-94-27 17:59:00Interface, Radiology Results In 07/06/2019 5:59 PM CDT Nuclear Cardiology and Cardiac CT [address] [place] [address] CTA Coronary Arteries ReportPat.Name: PAOLA ENGEL Pat.ID: [id number] .Date: 07/06/2019 Refer.MD: MILTON ELLINGTON MDExrebeca Time: 1:09:00 PMStudy Type:CTA Coronary Arteries Height: 67in Weight: 212lb BSA: 2.07 m2 Age: 6 1965,53Y Sex: MALE BP: 151/83 HR: 54 bpm Nuclear Tech:Samina Beyer RT(R)(CT)Pat. Stat.:Inpatient Tape Vol: 33.2, CPT - 4: CCTA w Thoracic Aorta (NonCongenital) [id number] Event ID:[id number] Order ID: [id number] Reason for Study:Pre-Op CABG, CAD History / Clinical:Coronary artery disease, Diabetes, Hyperlipidemia,Hypertension, S/P PCI 07/2007, Liver cirrhosis/Hepatitis CProcedures: CT Prospective(phases)Race: C SUMMARY: Technique: IV contrast was administered and sequential 0.[address] cutswere obtained through the chest using the Siemens Somatom Force CTscanner. Image post-processing consisting of multiplanar and 3Dreconstructions were performed using the Directed Edgeworkstation. Interactive image viewing, volumetric display andanalysis were [...] to the separate radiology report in [facility] for anyaddi tional non-cardiovascular findings. STUDY QUALITYThe study quality is good.COMMENTSNone. FINDINGS: Signed 07/06/2019 05:59 Bethany Olvera MethodistSurgical pathology [id number] 13:32:02 Test Item Value Reference Range Interpretation Comments Case number (test code = [id number]) Surgical pathology See link below for report (test code = PDF Lab Report 2255) Result status (test code This is Final Report = [id number]) for [id number] Lefty JohnsonHIV Ag/Ab onkgequycrt6569-28-65 09:39:34 Test Item Value Reference Range Interpretation Comments HIV Ag/Ab combination (test code Non-reactive Non-reactive = 5299) Lefty JohnsonProthrombin time with [id number] 07:38:02 Test Item Value Reference Range Interpretation Comments Prothrombin time (test 14.5 11.5- 14.5 sec code = 5902-2) INR (test code = 1.1 The Interna tional 35705-3) Normalized Rati o (INR) is a therapeutic m onitoring tool for patien ts who are stable on oral anticoagulant t herapy. An INR of 2.0-3.0 is suggested for d eep vein thrombosis/pulm onary embolism. Lefty JohnsonC4 complement [id number] 07:25:14 Test Item Value Reference Range Interpretation Comments C4 complement (test code = 4498-2) 34 mg/dL 10-40 Angela MethodistC3 complement [id number] 07:25:14 Test Item Value Reference Range Interpretation Comments C3 complement (test code = 4485-9) 133 mg/dL 90-180 Angela MethodistRheumatoid [id number] 07:25:13 Test Item Value Reference Range Interpretation Comments Rheumatoid factor (test code = 38212-3) <10 0- 13 IU/mL Angela MethodistTransthoracic Echocardiogram Complete, (w Contrast, Strain and 3D if needed)2019-07-05 10:49:00Interface, Radiology Results In - 07/05/2019 10:49 AM CDT Echocardiography Report [address]Name: PAOLA ENGEL Pat.ID: [id number].Date: 07/05/2019 Refer.MD: MILTON ELLINGTON MDExrebeca Time: 7:54:00 AM Study Type:Routine Echo Height: 67in Weight: 212lb BSA: 2.07 m2 Age: 6 1965,53Y Sex: MALE BP: 157/71 Sonogrphr: Audrey Bella RDCS, RVSPat. Stat.:Inpatient Room: [facility] Study Status:Final Echo Event ID:[id number] Order ID: [id number] Reason for Study:Chest pain, suspected cardi ac etiologyHistory / Clinical:Chest Pain, Diabetes, Hyperlipidemia, Hypertension,Cirrhosis, [place], Infectious Viral HepatitisProcedures: 2D Echo, Colorflow DopplerRace: [...] estimate PA systolic pressure. MEASUREMENTS: 2DParasternal Long [place] Ao An 2 cm LVPWd 1.5 cm [...] Signed 07/05/2019 10:49 Bethany Rain MethodistVancomycin level, aawhpt5485-71-95 06:48:15 Test Item Value Reference Range Interpretation Comments Vancomycin, random (test code = 11.9 ug/mL 19691-6) Lefty JohnsonVENIPUNC NEED PHYS SKILL,DX OR SZ7265-02-10 14:59:18SEstela lim RN 07/02/2019 3:03 PMMidlineDate/Time: 07/02/2019 [...] Catheter Length (cm): 10 Catheter Lot Number: [id number] Catheter Expiration Date: 1Procedure Details: Landmarks identified: [...] tolerance of procedure: Tolerated well, no immediate complicationsAngela MethodistVancomycin level, trough 2019-07-01 15:28:35 Test Item Value Reference Range Interpretation Comments Vancomycin, trough 23.0 ug/mL 10-20 HH Therapeut ic Ranges: (test code = 30727-6) Peak 30.0 - 40.0 ug/mL T rough 10.0 - 20.0 ug/mL Lab Interpretation Abnormal (test code = 84920-2) [facility] Transjugular Liver [id number] 16:47:45Hm Interface, Radiology Results 06/30/2019 4:50 PM CSTPerforming RadiologistJeveronica Lauren MD AssistantsNone Anesthesia TypeModerate sedation was administered by the procedure nurse and monitored by the procedure physician for a hhds-an-kllq sedation time of 20 minutes. Lidocaine 1% was usedfor local anesthetic. Pre Procedure Hxavdbuja18-mxzx-vdh man with possible cirrhosis.. Post Procedure DiagnosisStatus [...] for local anesthetic. Using real-time ultrasound guidance, a41-khblq micropuncture needle was used to access the [...] into the inferior vena cava. A long 9-Vietnamese vascular sheath was then placed,andadvanced over the guidewire into the right atrium. Right atrial pressure measures were then obtained. A 5-Vietnamese multipurpose catheter was advanced over the guidewire and used to select the right hepatic vein. A CO2 right hepatic venogram was performed. Pressure measurements were also obtained in boththe free and wedge positions. The 9-Vietnamese vascular sheath was then advanced into the right hepatic vein. The transjugular liver biopsy system was advanced through the 9-Vietnamese vascular sheath, and multiple 18-gauge core liver biopsy specimens were obtained and submitted to pathology. The transjugularliver biopsy system and 9-Vietnamese vascular sheath were then removed from the [...] hepatic: 11 mmHg Wedge hepatic: 15 mmHg [facility]-[id number] Spohn [facility] – [facility] 12 [id number] 18:56:23 Test Item Value Reference Range Interpretation Comments Ventricular rate (test 62 code = 253) Atrial rate (test code 62 = 255) VT interval (test code 152 = 266) QRSD [...] of 27-JUN-2019 08:13,-No significant change was found- Lefty CunninghamMbiqhyqfbLlqaewrb0305-81-32 10:42:45 Test Item Value Reference Range Interpretation Comments Troponin (test code = <0.006 0-0.04 [place] [address]-3) having a myocar dial infarction, mara delcid with all other appro priate clinical measur es and actions includi ng ECG and other diagnosti cs as appropriate, ak asure Ultra TnI at 0 hrs and [...] creased by less than 0.020 ng/mL Lefty [place] smooth muscle Ab qczjvj1153-59-09 14:32:24 Test Item Value Reference Range Interpretation Comments Anti smooth muscle Ab screen Not Detected Not-Detected (test code = 262) Lefty Gilmore Tunneled Dialysis Catheter Csrlohjik9867-25-23 07:28:35Hm Interface, Radiology Results 06/24/2019 7:31 AM CSTPERFORMING RADIOLOGIST:Will Petersen MD ASSISTANTS:None. ANESTHESIA TYPE:Moderate sedation was administered by the procedure nurse and monitored by the procedure physician for a total nndg-lm-zgua sedation time of 8 minutes. Lidocaine 1% [...] cavoatrial junction. PLAN:-Catheter is ready for immediate use.[facility]-[id number] Methodpinon health centerGram [id number] 21:21:01Gram stain isolateRare WBC'sMany Gram negative rodsRare Gram positive cocci in pairs Comment: Specimen InformationSpecimen Source: DrainageSpecimen Site: Not otherwise specified [facility] MethodistAnti mitochondria kuprhr4918-79-37 15:12:05 Test Item Value Reference Range Interpretation Comments Anti mitochondria screen (test Not Detected Not-Detected code = 1686) Lefty JohnsonXR Abdomen 1 Vw Ibjgscpc2711-31-55 18:02:41Hm Interface, Radiology Results 06/21/2019 6:05 PM CSTEXAMINATION: XR ABDOMEN 1 VW PORTABLECLINICAL HISTORY: Abd pain unspecified, BLQ abdominal pain rule out ileus or constipationCOMPARISON: Fluoroscopic images from 05/19/2008IMPRESSION:Artifact overlying the abdomen mildly limits evaluation.No dilated gas-filled loops of large or small bowel are noted. The patient is status post cholecystectomy.The bones of the abdomen and pelvis are unremarkable.The lung bases are clear.[facility]-[id number] MethodistProtein, urine, yijvfz7396-45-26 20:50:36 Test Item Value Reference Range Interpretation Comments Protein, urine random (test code = 584 mg/dL 2888-6) Angela MethodistCreatinine level, urine, yxfglc5216-21-39 20:39:45 Test Item Value Reference Range Interpretation Comments Creatinine, urine, random (test code 99 mg/dL = 79503-0) [facility] TomballHepatitis B surface Ab, dkohivpfteaa7613-10-66 18:16:55 Test Item Value Reference Range Interpretation [...] public refer to MMWR March 292004/Vol. 54(No. 16);- , and for healthcare work ers refer to MMWR March 292012/Vol. 62(No. 10);1-19 .Reference Interval: anti- HBs 9.99 IU/L or less .. ..... Oxqaqycy91.00 I U/L or greater .... PositiveResults greater than 1,000.00 I U/L are reported as gre ater than 1,000.00 IU/L. This assay should not be u sed for blood donor scr eening, associated re-e ntry protocols, or f or screening Human Cell, Tis sues and Cellular and Ti ssue-Based Products (HCT/P ).Performed by [facility] bustos,[address], [place] [address] xfz .c-crowd , Roberto Almaguer MD, Lab. Director Lefty JohnsonUrine hkmzosn6888-08-82 10:35:14 Test Item Value Reference Range Interpretation Comments Urine culture No growth Specimen isolate (test after 24 InformationSpe cimen code = 82635-1) hours Source: Urin eSpecimen Site: Clean cat Olea TbmgbifsgSMX2352-69-35 13:23:19 Test Item Value Reference Range Interpretation Comments ANNE screen (test Negative Negative Test perfor med using NOVA code = 550) Lite DAPI ANNE k it (Indirect Immunofluoresce nce Assay) for Anti-Nuclea r Antibody on Doodle QUANTA-Ly ser 160 Analyzer. Olea MethodistHepatitis B core antibody jhjau3842-40-04 08:03:43 Test Item Value Reference Range Interpretation Comments Hepatitis B core total Ab (test Non-reactive Non-reactive code = 03719-3) Olea MethodistHepatitis B core antibody RkF3522-80-90 08:03:43 Test Item Value Reference Range Interpretation Comments Hepatitis B core IgM (test code Non-reactive Non-reactive = 36075-1) Olea MethodistHepatitis A antibody QmB1457-54-47 08:03:43 Test Item Value Reference Range Interpretation Comments Hepatitis A IgM (test code = Non-reactive Non-reactive 23644-8) Olea MethodistHepatitis C qysrkysv0718-71-63 08:03:43 Test Item Value Reference Range Interpretation Comments Hepatitis C Ab (test code = Non-reactive Non-reactive 56430-7) Olea MethodistAmmonia zbvwx1159-90-08 08:01:41 Test Item Value Reference Range Interpretation Comments Ammonia (test code = 1841-6) 63 umol/L 16-60 H Lab Interpretation (test code = Abnormal 23819-9) Olea MethodistHepatitis B surface knbcjdn7012-68-26 07:28:04 Test Item Value Reference Range Interpretation Comments Hepatitis B surface Ag (test Non-reactive Non-reactive code = 5195-3) Olea MethodistHepatitis B surface trdcjrkm8573-94-24 07:28:04 Test Item Value Reference Range Interpretation Comments Hepatitis B surface Ab (test Non-reactive Non-reactive code = 18109-1) Olea MethodistUrinalysis screen and microscopy, with reflex to culture 2019-06-18 07:26:53 Test Item Value Reference Range Interpretation Comments Specimen site (test code = Clean catch 3220103) Color, UA (test code = 5778-6) Yellow Appearance, UA (test code = Cloudy 5767-9) Specific gravity, UA (test code = 1.011 1.001-1.035 5811-5) pH, UA (test code = 5803-2) 5.0 5.0-8.5 Protein, UA (test code = 82201-9) 3+ Negative A Glucose, UA (test code = 49414-1) 1+ Negative A Ketones, UA (test code = 2514-8) Negative Negative Bilirubin, UA (test code = Negative Negative 5770-3) Blood, UA (test code = 5794-3) Small Negative A Nitrite, UA (test code = 5802-4) Negative Negative Urobilinogen, UA (test code = <2.0 <2.0 47000-7) Leukocyte esterase, UA (test code Negative Negative = 5799-2) WBC, UA (test code = 5821-4) 14 0- 1 /HPF H RBC, UA (test code = 10629-9) 1 0- 5 /HPF Bacteria, UA (test code = Few None seen 81091-2) WBC clumps, UA (test code = Few A 62279-0) Yeast, UA (test code = 11235-1) None seen Yeast with pseudohyphae, UA (test None seen code = 03811-2) Amorphous crystals (test code = Few 58340-7) Granular casts, UA (test code = 1 0- 1 /LPF 5793-5) Lab Interpretation (test code = Abnormal 16884-0) Olea MethodistAlpha pzzceympzet4242-14-33 07:19:58 Test Item Value Reference Range Interpretation Comments Alpha fetoprotein 1.6 ng/mL 0-8.3 The Lexis 8000 AFP (test code = immunoassay was used. 71074-1) Results obtaine d with different assay methods or kits should not be used interchang eably and may be differen t. Lefty MethodistCeruloplasmin hxmqd2323-62-44 07:17:32 Test Item Value Reference Range Interpretation Comments Ceruloplasmin (test code = 2064-4) 22 mg/dL 15-30 Lefty WmweyqbrbGGN8047-15-04 07:17:31 Test Item Value Reference Range Interpretation Comments GGT (test code = 2324-2) 80 U/L 0-59 H Lab Interpretation (test code = Abnormal 50856-9) Letfy MethodistAlpha-1 antitrypsin fmgyh6400-66-10 07:17:31 Test Item Value Reference Range Interpretation Comments Alpha-1 antitrypsin (test code = 166 mg/dL 90-200 6771-0) Lefty JohnsonTissue transglutaminase Ab, TnU2236-99-34 17:53:26 Test Item Value Reference Range Interpretation Comments Tissue 1 U/mL 0-3 No further sheldon ac transglutaminase Ab, testing to be IgA (test code = 2324) perfo rmed.INTERPRETIV E INFORMATION: Tissue Transglutaminas e (tTG) Antibody, IgA3 U/mL or less: Negative4-10 U/ mL: Weak Tqydedwk09 U/mL or greater: PositivePresenc e of the [...] predic tive value for disease.Perform ed by [facility] Labor[facility] es,[address] [address] [email or web address], Roberto Almaguer MD, La b. Director BRENT (test code = BRENT) CO2 called with reae back to Yu Kwon/ [facility] at 06/16/2019 08:04 by JN1. Olea MethodistUS Abdomen Xyatxuyl7006-72-23 16:55:54Hm Interface, Radiology Results 06/17/2019 4:59 PM [...] to participate in the care of your patient.[facility]-[id number] Methodist Abdominal Txrfcjk2251-90-82 16:52:25Hm Interface, Radiology Results 06/17/2019 4:55 PM [...] artery and vein are identified and are patent.[facility]-[id number] Methodist Renal 2019-06-17 14:29:49Hm Interface, Radiology Results 06/17/2019 2:32 PM CSTEXAMINATION: US RENALCLINICAL HISTORY: Flank pain stone disease suspectedCOMPARISON: None.IMPRESSION: The right kidney measures 12cm in length.The left kidney measures 13.9 cm in length.There is no renal mass, stone, cyst, or hydronephrosis. Echogenicity is normal.The urinary bladder is unremarkable.[facility]-[id number] MethodistCeliac disease reflexive cascade 2019-06-17 07:55:20 Test Item Value Reference Range Interpretation Comments IgA (test code = 449 mg/dL 68-408 H Total IgA i s within 2458-8) or higher than established ran ges. Tissue Transglutaminas e, IgA to follow.REFERENC E INTERVAL: Immunoglobulin AAccess complet e set of age- and/or gender-specific reference inter vals for this test i n the [facility] Test [facility] (c-crowd).P erfor med by [employer],[address] [facility] [address] usm .[employer], Roberto Almaguer MD, La b. Director BRENT (test code = BRENT) CO2 called with reae back to Yu Kwon/ [facility] at 06/16/2019 08:04 by JN1. Lab Interpretation Abnormal (test code = 90299-1) [facility] Centercal hqpmxzhtiglg5852-24-46 13:53:32 Test Item Value Reference Range Interpretation Comments Fecal calprotectin (test code = 57.64 <15.6-120mg/kg 28495-3) [facility] TomballUs carotid ioggkc6603-59-14 20:05:00Interface, Radiology Results In - 06/15/2019 8:06 PM [employer] [facility] Carotid Artery Duplex [address] [place] [address] For quality assurance supervisor purposes, the categorization of the degree of the stenosis of this exam is based on criteria described in the IAC carotid stenosis grading white paper( www.intersocietal.org/Vascular) and Thanh Nava., Derrick Fountain., et al. Carotid artery stenosis: wagner-scale and Doppler US diagnosis--Society of Radiologists in Ultrasound Consensus Conference. Radiology. 2003 Nov; 229(2):340-6. Pat.Name: PAOLA ENGEL Pat.ID: [id number] .Date: 06/15/2019 Refer.MD: MILTON ELLINGTON MDExam Time: 11:04:00 AM Study Type:Carotid Height: 67in Weight: 212lb BSA: 2.07 m2 Age: 4 1965,53Y Sex: MALE BP: 116/68 Sonogrphr: Suad Greco RDCS, RVTPat. Stat.:Inpatient Room: [address] Vol: ED, CPT - 4: [address]45 Echo Event ID:[id number] Order ID: [id number] Reason for Study:Pre-op evaluation History / Clinical:Smoker, CAD, S/p [place], DM, HTN, HLD, Liver cirrhosis,Chest pain, ObesityProcedures: [...] ICA/CCA PSV 0.564 Sign ed 06/15/2019 08:05 Zachery Vallejo MD, [facility] MethodistSpirometry, diffusion, lung ymndfjs7778-97-95 14:29:17 Test Item Value Reference Range Interpretation [...] code = 5438) [facility] SB Predicted (test .69 code = 5533) [facility] SB LLN (test code = 3.49 5534) [facility] SB % Pre of Predicted 82.3 % (test code = 5536) VA SB Predicted (test code 6.24 = 5442) VA SB LLN (test code = 4.88 5443) VA SB % Pre of Predicted 68.3 % (test code = 5445) Angela Methodpinon health centerCT Head Wo Dnqlwnuk6784-16-75 20:36:27Hm Interface, Radiology Results 06/14/2019 8:39 PM [...] is new from the prior examination of 2017, reflective of a small infarct of uncertain [...] is new from the prior examination of 2017, reflective of a small infarct of uncertain but likely chronic timeframe.The wagner-white matter differentiationis otherwise preserved and without evidence of acute territorial infarction. No parenchymal hemorrhage.MRI of the brain can be obtained for further evaluation if clinically indicated.[facility]-[id number] Methodist Gastrointestinal ziexd6144-55-46 13:46:31Gastrointestinal panelNegative for all pathogens tested:Negative for [...] Comment: Specimen InformationSpecimen Source: StoolSpecimen Site: Nonpreserved [facility] MethodistManual feqbwpcbcqdb4144-69-99 08:23:11 Test Item Value Reference Range Interpretation Comments Manual differential (test code = PERFORMED 36066-3) Neutrophils (test code = 53.0 % 39-69 01326-6) Lymphocytes (test code = 36.0 % 25-45 22645-8) Monocytes (test code = 35072-8) 6.0 % 0-10 Eosinophils (test code = 4.0 % 0-5 21193-6) Basophils (test code = 73324-6) 1.0 % 0-1 Metamyelocytes (test code = 0 % 740-1) Promyelocytes (test code = 0 % 783-1) Platelet slide review (test code Rebekah adequate = 30768-8) Anisocytosis (test code = 702-1) Moderate Polychromasia (test code = Moderate 02457-2) Ovalocytes (test code = 774-0) Moderate Angela MethodistHemoglobin L1k5143-13-99 08:03:34 Test Item Value Reference Range Interpretation Comments Hemoglobin A1C (test 12.6 % 4-5.6 H HbA1c c utoffs for code = 89374-2) diagnosing diabetes:4.0% - 5.6% = normal5.7% - 6.4% = increased risk for diabetes (prediabetes)9> =6.5% = upjwqdgl2Rrrm s for glycemic contro l (ADA 2016)< 7.0% Ta rget for non adults with win betes. More or less stringent targe ts may be appropriate for individual virginie ents. <7.5% Target for Children and adolescents wit h type 1 diabetes. Lab Interpretation (test Abnormal code = 81222-0) Lefty MethodistT4, wxos0401-15-38 06:34:11 Test Item Value Reference Range Interpretation Comments T4, free (test code = 3024-7) 0.8 ng/dL 0.9-1.7 L Lab Interpretation (test code = Abnormal 35679-7) Lefty MethodjoseThyroid stimulating yjpnxoc9159-49-65 06:34:11 Test Item Value Reference Range Interpretation Comments TSH (test code = 3016-3) 1.95 0.27- 4.20 uIU/mL Lefty MethodistLipid tpipf4023-89-14 06:30:05 Test Item Value Reference Interpretation Comments [...] (mg/dL) interpretation (test < 200 code = 52275-9) Desirable 200-239 Borderline -high >=240 Hi gh [...] mg/dL) Lab Interpretation Abnormal (test code = 47687-4) Angela YobanyistInfluenza vjcowwf5333-00-25 00:42:57 Test Item Value Reference Range Interpretation Comments Influenza Negative for Specimen antigen (test Influenza A/B [facility] ecimen code = 01976-2) antigen. Source: Ivon sSpecimen Site: Right Angela MethodistXR Chest 1 Vw Trmfybwf1778-18-05 20:58:31Hm Interface, Radiology Results Incoming - 06/12/2019 9:01 PM CSTEXAMINATION: XR CHEST 1 VW PORTABLECLINICAL HISTORY: tachyCOMPARISON: 03/20/2018IMPRESSION:No radiographic evidence for acute cardiopulmonary process.Cardiomediastinal silhouette is within normal limits of size.No focal or confluent airspace consolidation is seen on this single AP plane to suggest acute pneumonia. No sizable pleural e ffusion. No pneumothorax identified.No acute osseous abnormalities are visualized.[facility]-[id number] MethodistB natriuretic wjpmwnh3650-68-45 20:55:06 Test Item Value Reference Range Interpretation Comments BNP (test code = 53 pg/mL 0-100 72821-8) BRENT (test code = BRENT) GLU results called to and read back by TOSHIA PEREZ RN LIZBETH (name/location)at _ 06/12/2019 20:51 BY [facility] MoravianComprehensive metabolic qisbs7351-07-44 20:50:02 Test Item Value Reference Range Interpretation Comments Sodium (test code = 137 135- 148 mEq/L 2951-2) Potassium (test code = 3.9 3.5- 5.0 mEq/L 2823-3) Chloride (test code = 103 98- 112 mEq/L 2075-0) CO2 (test code = 8-9) 19 24- 31 mEq/L L Anion gap (test code = 15@ANIO 7- 15 mEq/L 55713-7) BUN (test code = 3094-0) 25 mg/dL 6-20 H Creatinine (test code = 2.04 mg/dL 0.7-1.2 H 2160-0) Glucose (test code = 519 mg/dL 65-99 HH 2345-7) Calcium (test code = 10.1 mg/dL 8.3-10.2 34974-0) Protein (test code = 8.4 g/dL 6.3-8.3 H [place] 9994.6-7.0 2885-2) g/dL1 byjy7435.4-7.6 g/dL7 months-1rhlq167 .1- 7.3 g/dL1-2 yklai936.6-7.5 g/dL>3 emtpb575.0-8.0 g/zO69-1435009. 3-8 .3 g/dL Albumin (test code = 3.1 g/dL 3.5-5 L 1751-7) A/G ratio (test code = 0.6 0.7-3.8 L 1759-0) Alkaline phosphatase 166 U/L 40-129 H (test code = 6768-6) AST (test code = 1920-8) 23 U/L 10-50 ALT (test code = 1742-6) 24 U/L 5-50 Total bilirubin (test 0.3 mg/dL 0-1.2 code = 1974-2) Lab Interpretation (test Abnormal code = 84365-3) Angela MethodistPartial thromboplastin time, vxafhexwq6090-82-54 20:31:46 Test Item Value Reference Range Interpretation Comments PTT (test code = 28.1 23.0- 36.0 [place] [address]-8) unfractionated heparin is61.0-112.0 se conds which corresponds to Anti-Xa0.3-0.7 U/ml. Angela [facility] Preliminary Interpretation - Not an Turre2719-53-28 19:50:09 Test Item Value Reference Range Interpretation Comments BRENT (test code = BRENT) Guillermo Jeffery MD 06/22/2019 10:44 [facility] ED Preliminary Interpretation - Not an OrderPerformed by: Guillermo Jeffery MDAuthorized by: Guillermo Jeffery MD ECG reviewed by ED Physician in the absence of a botany technician: yes Previous ECG: Previous ECG: UnavailableInterpretat ion: Interpretation: abnormal Rate: ECG rate: 113 ECG rate assessment: tachycardic Rhythm: Rhythm: sinus tachycardia Ectopy: Ectopy: none QRS: QRS axis: Normal QRS intervals: NormalConduction: Conduction: abnormal Abnormal conduction: LPFB ST segments: ST segments: NormalOther findings: Other findings: prolonged qTc interval Lab Interpretation Abnormal (test code = 74448-7) Lefty MethodistECG 12 upyv5588-40-49 14:04:08Interface, External Ris In - 01/12/2019 2:04 PM CDTVentricular Rate 77 BPMAtrial Rate 77 BPMP-R Interval 138 msQRS Duration 144 msQ-T Interval 442 msQTC Calculation(Bazett) 500 msP [place] 30 degreesR [place] 41 degreesT [place] 30 degreesNormal sinus rhythmLimb lead misplacementRight bundle branch blockNonspecific T wave abnormalityProlonged QTAbnormal ECGWhen compared with ECG of 10-JAN-2019 06:01,Limb leads are now misplacedConfirmed by MD JOEY, MAGALY ([id number]) on 01/12/2019 2:04:04 [facility]CH[facility] jxohg5846-64-49 12:50:00 Test Item Value Reference Range Interpretation Comments POC-Glucose Meter (test 119 mg/dL 70-110 H TEST ED AT [facility] code = 1538) [address] [facility] 7703 0 Lab Interpretation (test Abnormal code = 51832-9) [facility]-GLUCOSE FRCTP2754-79-54 12:50:00 Test Item Value Reference Range Interpretation Comments POC-GLUCOSE METER 119 mg/dL 70-110 H TESTED AT [facility] 6720 (BEAKER) (test code = [facility] 1538) [address] Basic Metabolic Xgkla6091-98-36 06:16:00 Test Item Value Reference Range Interpretation Comments Sodium (test code = 139 meq/L 776-629 8197-2) Potassium (test code = 4.5 meq/L 3.5-5.1 2823-3) Chloride (test code = 109 meq/L 98-107 H 2075-0) CO2 (test code = 23 meq/L 22-29 8-9) BUN (test code = 30 mg/dL 7-21 H 3094-0) Creatinine (test code = 1.87 mg/dL 0.57-1.25 H 2160-0) Glucose (test code = 219 mg/dL 70-105 H 2345-7) Calcium (test code = 8.9 mg/dL 8.4-10.2 35877-2) EGFR (test code = 38 mL/min/1.73 [place] [address]-4) NOT ACCURATE CREATININE CLEARANCE IN PREDICTING GLOMERULAR FILTRATION RATE . ESTIMATED GFR I S NOT APPLICABLE FOR DIALYSIS PATIEN TS. Lab Interpretation Abnormal (test code = 38131-1) [facility] METABOLIC [id number] 06:16:00 Test Item Value Reference Range Interpretation [...] TS. CBC with platelet count + automated aaue5326-15-61 05:42:00 Test Item Value Reference Range Interpretation [...] 450 K/CU MM MPV (test code = 71282-0) 11.8 fL 9.4-12.4 nRBC (test code = [...] 2801) Lab Interpretation (test code = Abnormal 18934-8) [facility] W/PLT COUNT & AUTO UAMBCUZADHEA5246-74-48 05:42:00 Test Item Value Reference Range Interpretation [...] PERCENT (BEAKER) (test code = 2801) POCT-GLUCOSE ILALS9268-33-04 20:34:00 Test Item Value Reference Range Interpretation Comments POC-GLUCOSE METER 205 mg/dL 70-110 H TESTED AT [facility] 6720 ([facility]) (test code = [facility] 1538) [address] CT, CHEST, WITHOUT KEMXIMSA7627-27-40 18:24:00FINAL REPORT TECHNIQUE: CT scan of the [...] MDReport Verified Date/Time: 01/10/2019 18:24:57 Reading Location: [address] Body Reading Room CT chest without [...] MDReport Verified Date/Time: 01/10/2019 18:24:57 Reading Location: [facility] B1 C013Y CT Body [facility]SE PEWPB4124-29-10 17:31:00 Test Item Value Reference Range Interpretation Comments POC-GLUCOSE METER 183 mg/dL 70-110 H TESTED AT [facility] 6720 (CHASITY) (test code = [place] 1538) [address] CT, BRAIN, WITHOUT [id number] 14:47:00FINAL REPORT CT, BRAIN, WITHOUT CONTRAST INDICATION: [...] Lubna Lr MDReport Verified Date/Time: 01/10/2019 14:47:25 CT brain without IV [id number] 14:47:00Interface, External Ris In - 01/10/2019 2:49 [...] Lubna Lr MDReport Verified Date/Time: 01/10/2019 14:47:25 [facility] [id number] 11:36:00 Test Item Value Reference Range Interpretation Comments D-Dimer, Quant (test code 2.14 <0.50 MG/L FEU H = 60431-8) BRENT (test code = BRENT) Intended Use: [...] range. Lab Interpretation (test Abnormal code = 30506-4) [facility][id number] 11:36:00 Test Item Value Reference Range Interpretation [...] within 95-100% range.RAD, CHEST, 1 VIEW, NON [id number] 08:17:00Reason for exam:->chest painShould this be performed at the bedside?->YesFINAL REPORT Chest, AP view. History: Chest pain. Comparison: 01/06/2019. Discussion: The cardiomediastinal silhouette and pulmonary vasculature are within normal limits. The lungs are clear without evidence of consolidation or effusion. There are no acute osseous abnormalities. The soft tissues are unremarkable. IMPRESSION: No acute cardiopulmonary abnormality. Signed: Britney Montes MDReport Verified Date/Time: 01/10/2019 08:17:19 Reading Location: [facility] B1 C013X Ortho Consult Reading Room XR chest 1 view portable / [id number] 08:17:00 Interface, External Ris In - 01/10/2019 8:19 AM CDTFINAL REPORT Chest, AP view. History: Chest pain. Comparison: 01/06/2019. Discussion: The cardiomediastinal silhouette and pulmonary vasculature are within normal limits. The lungs are clear without evidence of consolidation or effusion. There are no acute osseous abnormalities. The soft tissues are unremarkable. IMPRESSION: No acute cardiopulmonary abnormality. Signed: Britney Montes MDReport Verified Date/Time: 01/10/2019 08:17:19 Reading Location: [facility] B1 C013X Ortho Consult Reading [facility] 2019[facility] 07:02:00 Test Item Value Reference Range Interpretation Comments Troponin I (test code = 0.02 ng/mL 0-0.03 13173-4) BRENT (test code = BRENT) Troponin I [...] tachyarrhythmia. Lab Interpretation (test Normal code = 29318-3) [facility] [id number] 07:02:00 Test Item Value Reference Range Interpretation [...] Range Interpretation Comments BNP (test code = 89770-3) 130 pg/mL 0-100 H Lab Interpretation (test code = Abnormal 88491-0) [facility] NATRIURET[facility] FACTOR (BNP)2019-01-10 06:59:00 Test Item Value Reference Range Interpretation Comments B-TYPE NATRIURETIC PEPTIDE (BEAKER) 130 pg/mL 0-100 H (test code = 700) BASIC METABOLIC [id number] 06:51:00 Test Item Value Reference Range Interpretation [...] PATIEN TS. CBC W/PLT COUNT & AUTO [id number] 06:27:00 Test Item Value Reference Range Interpretation [...] PERCENT (BEAKER) (test code = 2801) TROPONIN [id number] 23:52:00 Test Item Value Reference Range Interpretation [...] acidosis, acute neurological disease, and persistent tachyarrhythmia.POCT-GLUCOSE [id number] 22:03:00 Test Item Value Reference Range Interpretation Comments POC-GLUCOSE METER 315 mg/dL 70-110 H TESTED AT [facility] 6720 ([facility]) (test code = [place] 1538) [address] POCT-GLUCOSE [id number] 20:02:00 Test Item Value Reference Range Interpretation Comments POC-GLUCOSE METER 250 mg/dL 70-110 H TESTED AT [place] [address] ([facility]) (test code = [facility] [place] [facility] 1538) [address] TROPONIN [id number] 19:05:00 Test Item Value Reference Range Interpretation [...] acidosis, acute neurological disease, and persistent tachyarrhythmia.POCT-GLUCOSE [id number] 17:40:00 Test Item Value Reference Range Interpretation Comments POC-GLUCOSE METER 246 mg/dL 70-110 H TESTED AT [place] [address] ([facility]) (test code = [place] [facility] 1538) [address] POCT-GLUCOSE [id number] 08:11:00 Test Item Value Reference Range Interpretation Comments POC-GLUCOSE METER 243 mg/dL 70-110 H TESTED AT [place] [address] ([facility]) (test code = [facility] 1538) [address] BASIC METABOLIC [id number] 05:04:00 Test Item Value Reference Range Interpretation [...] I S NOT APPLICABLE FOR DIALYSIS PATIEN [id number] 04:56:00 Test Item Value Reference Range Interpretation Comments PTT (test code = 64509-0) 35.0 22.5- 36.0 seconds Lab Interpretation (test code = Normal 26157-2) [facility] 04:56:00 Test Item Value Reference Range Interpretation Comments PARTIAL THROMBOPLASTIN TIME 35.0 seconds 22.5-36.0 (BEAKER) (test code = 760) CBC W/PLT COUNT & AUTO [id number] 04:48:00 Test Item Value Reference Range Interpretation [...] PERCENT (BEAKER) (test code = 2801) POCT-GLUCOSE [id number] 22:08:00 Test Item Value Reference Range Interpretation Comments POC-GLUCOSE METER 364 mg/dL 70-110 H Notified Rohith Lynne MD/TESTED (BEAKER) (test code = AT [place] 264118) [place] [address] 0 POCT-GLUCOSE [id number] 17:05:00 Test Item Value Reference Range Interpretation Comments POC-GLUCOSE METER 389 mg/dL 70-110 H Notified Rohith Lynne MD/TESTED (BEAKER) (test code = AT [place] 264118) [place] [address] 0 BASIC METABOLIC [id number] 16:28:00 Test Item Value Reference Range Interpretation [...] S NOT APPLICABLE FOR DIALYSIS PATIEN TS. PT/[id number] 16:26:00 Test Item Value Reference Range Interpretation Comments Protime (test code = 13.4 11.9- 14.2 5902-2) seconds INR (test code = 1.1 <=5.9 6301-6) PTT (test code = 32.0 22.5- 36.0 29961-7) seconds BRENT (test code = BRENT) Effective 09/23/2018: PT Reference Range ChangeNew: 11.9-14.2 Previous: 11.7-14.7 RECOMMENDED COUMADIN/WARFARIN INR THERAPY RANGESSTANDARD DOSE: 2.0-3.0 Includes: PROPHYLAXIS for venous thrombosis, systemic embolization; TREATMENT for venous thrombosis and/or pulmonary embolus.HIGH RISK: Target INR is 2.5-3.5 for patients wiht mechanical heart valves. Lab Interpretation Normal (test code = 99519-8) [facility]PT/[id number] 16:26:00 Test Item Value Reference Range Interpretation [...] INR is2.5-3.5 for patients wiht mechanical heart valves.[id number] 16:26:00 Test Item Value Reference Range Interpretation Comments PARTIAL THROMBOPLASTIN TIME 32.0 seconds 22.5-36.0 (BEAKER) (test code = 760) POCT-GLUCOSE [id number] 12:06:00 Test Item Value Reference Range Interpretation Comments POC-GLUCOSE METER 321 mg/dL 70-110 H Notified Rohith Lynne MD/TESTED (CHASITY) (test code = AT [facility] 67[address] [place] 1538) [facility] 7703 0 ECHO W CONTRAST & [id number] 09:20:17Ejection FractionSLEH ECHO HEARTLAB MKCKESSON CPACSInterface, External Ris In - 01/08/2019 9:20 AM C DTTransthoracic Echocardiography Report (TTE) Demographics Patient Name PAOLA ENGEL Dateof Study 01/07/2019 MAGED SILVERMAN. 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 Center[facility] [id number] 08:29:00 Test Item Value Reference Range Interpretation Comments POC-GLUCOSE METER 263 mg/dL 70-110 H TESTED AT [facility] 6720 ([facility]) (test code = [place] 1538) [address] [id number] 04:54:00 Test Item Value Reference Range Interpretation Comments PARTIAL THROMBOPLASTIN TIME 31.0 seconds 22.5-36.0 ([facility]) (test code = 760) CBC W/PLT COUNT & AUTO [id number] 04:43:00 Test Item Value Reference Range Interpretation Comments WHITE BLOOD CELL COUNT ([facility]) 6.6 K/ L 3.5-10.5 (test code = 775) RED BLOOD CELL COUNT ([facility]) 3.45 M/ L 4.63-6.08 L (test code = 761) HEMOGLOBIN ([facility]) (test code = 10.9 GM/DL 13.7-17.5 L 410) HEMATOCRIT ([facility]) (test code = 30.8 % 40.1-51.0 L 411) MEAN CORPUSCULAR VOLUME ([facility]) 89.3 fL 79.0-92.2 (test code = 753) [...] PERCENT (BEAKER) (test code = 2801) POCT-GLUCOSE [id number] 22:11:00 Test Item Value Reference Range Interpretation Comments POC-GLUCOSE METER 319 mg/dL 70-110 H Notified R Christy BOSS/TESTED (BEAKER) (test code = AT [facility] 6715 [facility] 8568) [place] [address] [id number] 20:11:00 Test Item Value Reference Range Interpretation Comments PARTIAL THROMBOPLASTIN TIME 33.3 seconds 22.5-36.0 (BEAKER) (test code = 760) POCT-GLUCOSE [id number] 18:49:00 Test Item Value Reference Range Interpretation Comments POC-GLUCOSE METER 309 mg/dL 70-110 H TESTED AT [place] [address] ([facility]) (test code = [place] 1538) [address] POCT-GLUCOSE [id number] 14:48:00 Test Item Value Reference Range Interpretation Comments POC-GLUCOSE METER 161 mg/dL 70-110 H TESTED AT [place] [address] ([facility]) (test code = [place] 1538) [address] POCT-GLUCOSE [id number] 14:46:00 Test Item Value Reference Range Interpretation Comments POC-GLUCOSE METER 159 mg/dL 70-110 H TESTED AT [place] [address] ([facility]) (test code = [place] 1538) [address] TROPONIN [id number] 13:58:00 Test Item Value Reference Range Interpretation Comments TROPONIN I ([facility]) (test code = 397) < ng/mL 0.00-0.03 [...] failure, acidosis, acute neurological disease, and persistent tachyarrhythmia.[id number] 12:25:00 Test Item Value Reference Range Interpretation Comments PARTIAL THROMBOPLASTIN TIME 30.3 seconds 22.5-36.0 ([facility]) (test code = 760) POCT-GLUCOSE [id number] 12:18:00 Test Item Value Reference Range Interpretation Comments POC-GLUCOSE METER 168 mg/dL 70-110 H TESTED AT [place] [address] ([facility]) (test code = [place] 1538) [address] POCT-GLUCOSE [id number] 11:06:00 Test Item Value Reference Range Interpretation Comments POC-GLUCOSE METER 180 mg/dL 70-110 H TESTED AT [place] [address] ([facility]) (test code = [place] 1538) [address] POCT-GLUCOSE [id number] 10:21:00 Test Item Value Reference Range Interpretation Comments POC-GLUCOSE METER 195 mg/dL 70-110 H TESTED AT [place] [address] ([facility]) (test code = [place] [facility] 1538) [address] POCT-GLUCOSE [id number] 10:21:00 Test Item Value Reference Range Interpretation Comments POC-GLUCOSE METER 180 mg/dL 70-110 H TESTED AT [place] [address] ([facility]) (test code = [place] [facility] 1538) [address] POCT-GLUCOSE [id number] 08:06:00 Test Item Value Reference Range Interpretation Comments POC-GLUCOSE METER 218 mg/dL 70-110 H TESTED AT [place] [address] ([facility]) (test code = [place] [address]) [address] TROPONIN [id number] 07:00:00 Test Item Value Reference Range Interpretation Comments TROPONIN I ([facility]) (test code = 0.01 ng/mL 0.00-0.03 397) [...] afterwardsOnce on admission and Daily AM afterwardsPOCT-GLUCOSE [id number] 06:58:00 Test Item Value Reference Range Interpretation Comments POC-GLUCOSE METER 248 mg/dL 70-110 H TESTED AT [place] [address] ([facility]) (test code = [place] [address]488) [address] [id number] 06:54:00 Test Item Value Reference Range Interpretation Comments Magnesium (test code = 2.2 mg/dL 1.6-2.6 60118-3) BRENT (test code = BRENT) Once on admission and Daily AM afterwardsOnce on admission and Daily AM afterwardsOnce on admission and Daily AM afterwards Lab Interpretation Normal (test code = 34818-2) [facility]osph[facility]2019-[facility] 06:54:00 Test Item Value Reference Range Interpretation Comments Phosphorus (test code = 2.5 mg/dL 2.3-4.7 2777-1) BRENT (test code = BRENT) Once on admission and Daily AM afterwardsOnce on admission and Daily AM afterwardsOnce on admission and Daily AM afterwards Lab Interpretation Normal (test code = 08666-6) [facility] [id number] 06:54:00 Test Item Value Reference Range Interpretation Comments PHOSPHORUS (BEAKER) (test code = 2.5 mg/dL 2.3-4.7 604) Once on admission and Daily AM afterwardsOnce on admission and Daily AM afterwardsOnce on admission and Daily AM [id number] 06:54:00 Test Item Value Reference Range Interpretation [...] Daily AM afterwardsCBC W/PLT COUNT & AUTO [id number] 06:42:00 Test Item Value Reference Range Interpretation [...] 0-1 PERCENT (BEAKER) (test code = 2801) [id number] 06:28:00 Test Item Value Reference Range Interpretation Comments PARTIAL THROMBOPLASTIN TIME 30.6 seconds 22.5-36.0 ([facility]) (test code = 760) POCT-GLUCOSE [id number] 06:01:00 Test Item Value Reference Range Interpretation Comments POC-GLUCOSE METER 266 mg/dL 70-110 H TESTED AT [facility] 6720 ([facility]) (test code = [place] [facility] 1538) [address] POCT-GLUCOSE [id number] 04:57:00 Test Item Value Reference Range Interpretation Comments POC-GLUCOSE METER 271 mg/dL 70-110 H TESTED AT [place] [id number] ([facility]) (test code = [place] [facility] 1538) [address] POCT-GLUCOSE [id number] 04:05:00 Test Item Value Reference Range Interpretation Comments POC-GLUCOSE METER 308 mg/dL 70-110 H Notified Rohith Lynne MD/TESTED ([facility]) (test code = AT [place] [address]) [facility] 7703 0 POCT-GLUCOSE [id number] 02:57:00 Test Item Value Reference Range Interpretation Comments POC-GLUCOSE METER 343 mg/dL 70-110 H Notified R Christy MD/TESTED ([facility]) (test code = AT [place] [address]) [facility] 7703 0 RAD, CHEST, 1 VIEW, NON [id number] 02:27:00Reason for exam:->mediastinal wideningShould this be performed [...] osseous structures are intact. Signed: Emmanuelle Kline Verified Date/Time: 01/07/2019 02:27:45 POCT-GLUCOSE [id number] 01:57:00 Test Item Value Reference Range Interpretation Comments POC-GLUCOSE METER 369 mg/dL 70-110 H TESTED AT [place] [address] ([facility]) (test code = [place] [facility] 1538) [address] POCT-GLUCOSE [id number] 01:06:00 Test Item Value Reference Range Interpretation Comments POC-GLUCOSE METER 395 mg/dL 70-110 H Notified Rohith Lynne MD/TESTED ([facility]) (test code = AT [place] [address] [address] [facility]8) [facility] 7703 0 TROPONIN [id number] 00:36:00 Test Item Value Reference Range Interpretation Comments TROPONIN I ([facility]) (test code = 0.01 ng/mL 0.00-0.03 397) [...] Reference Range Interpretation Comments B-TYPE NATRIURETIC PEPTIDE ([facility]) 151 pg/mL 0-100 H (test code = 700) [id number] 00:19:00 Test Item Value Reference Range Interpretation Comments PARTIAL THROMBOPLASTIN TIME 28.2 seconds 22.5-36.0 ([facility]) (test code = 760) Prior to initiating heparinPOCT-GLUCOSE [id number] 00:16:00 Test Item Value Reference Range Interpretation Comments POC-GLUCOSE METER 413 mg/dL 70-110 HH TESTED AT [place] [address] ([facility]) (test code = [place] [facility] 1538) [address] POCT-GLUCOSE [id number] 23:10:00 Test Item Value Reference Range Interpretation Comments POC-GLUCOSE METER 452 mg/dL 70-110 HH Notified Rohith Lynne MD/TESTED ([facility]) (test code = [place] [address] [place] [address]) [facility] 7703 0 POCT-GLUCOSE [id number] 22:06:00 Test Item Value Reference Range Interpretation Comments POC-GLUCOSE METER 383 mg/dL 70-110 H TESTED AT [facility] 6720 (BEAKER) (test code = [place] 1536) [address] CT, BRAIN, WITHOUT [id number] 21:38:00FINAL REPORT CT Head without contrast CLINICAL [...] at time of dictation. Signed: Emmanuelle Kline [facility] Verified Date/Time: 01/06/2019 21:38:52 [facility]OL[facility] [id number] 21:12:00 Test Item Value Reference Range Interpretation [...] NOT APPLICABLE FOR DIALYSIS PATIEN TS. Hemoglobin [id number] 20:17:00 Test Item Value Reference Range Interpretation Comments Hemoglobin A1C (test code = 4548-4) 11.9 % 4.3-6.1 H Lab Interpretation (test code = Abnormal 66169-7) [facility]MO[facility]IN [id number] 20:17:00 Test Item Value Reference Range Interpretation Comments HEMOGLOBIN A1C (BEAKER) (test code = 11.9 % 4.3-6.1 H 368) TROPONIN [id number] 19:52:00 Test Item Value Reference Range Interpretation [...] acute neurological disease, and persistent tachyarrhythmia.Hepatic function [id number] 19:46:00 Test Item Value Reference Range Interpretation Comments Protein, Total (test 6.3 6.0- 8.3 gm/dL Speci men code = 2885-2) slightly hemolyzed Albumin (test code = 2.8 g/dL 3.5-5 L [place] 12875-0) slightly hemolyzed Total Bilirubin (test 0.4 mg/dL 0.2-1.2 Specim en code = 1974-) slightly hemolyzed Bilirubin, Direct 0.1 mg/dL 0.1-0.5 Specimen (test code = 1967-7) slightl y hemolyzed Alkaline Phosphatase 104 U/L 40-150 (test code = 6768-6) AST (test code = 29 U/L 5-34 Specimen 1920-8) slightly hemolyzed ALT (test code = 23 U/L 6-55 Specimen 1742-6) slightly hemolyzed BRENT (test code = BRENT) Specimen moderately lipemic Lab Interpretation Abnormal (test code = 18811-1) [facility] Hospital[facility]ATIC FUNCTION [id number] 19:46:00 Test Item Value Reference Range Interpretation [...] (test code = 347) hemolyzed Specimen moderately [id number] 19:32:00 Test Item Value Reference Range Interpretation Comments PARTIAL THROMBOPLASTIN TIME 28.1 seconds 22.5-36.0 (BEAKER) (test code = 760) Prothrombin time/[id number] 19:31:00 Test Item Value Reference Range Interpretation [...] valves. Lab Interpretation Abnormal (test code = 61085-7) [facility] HospitalPROTHROMBIN TIME/[id number] 19:31:00 Test Item Value Reference Range Interpretation [...] mechanical heart valves.CBC W/PLT COUNT & AUTO [id number] 19:25:00 Test Item Value Reference Range Interpretation [...] PERCENT (BEAKER) (test code = 2801) POCT-GLUCOSE [id number] 17:51:00 Test Item Value Reference Range Interpretation Comments POC-GLUCOSE METER 342 mg/dL 70-110 H Notified R Christy BOSS/RIMMA (CHASITY) (test code = AT [facility] [address] [address]) [facility] 7703 0
--- OUTSIDE RECORDS SUMMARY | 2019-12-25 19:44 | XMS REPORT | Summary of Care ---
:1965 Author Organization [facility] Address [address] [place] [address] Care Team Providers Name Role Phone Maria E Ornelas Primary Care Provider Reason for Visit Reason Comments Exposure Encounter Details Date Type Department Care Team Description 12/24/2019 Laboratory Only [facility] Family Osmani Camacho, KINJAL [address] [address] Suspected Covid-19 Medicine - [facility] Ad[facility] Fam Pob I Virus Infection [address] [place] [address] (Primary D x) [place] [address] Allergies Active Allergy Reactions Severity Noted Date Comments Morphine Hives, Itching 06/25/2013 Hydrocodone-Acetaminophen Hives, Itching 06/25/2013 documented as of this encounter (statuses as of 12/24/2019) Medications Medication Sig Dispensed Refills Start Date [...] as of this encounter (statuses as of 12/24/2019) Active Problems Problem Noted Date Seizures 05/26/2019 History of CVA (cerebrovascular accident) 05/26/2019 History of RI (myocardial infarction) 05/26/2019 Encounter for screening colonoscopy 05/26/2019 Coronary artery disease involving grand traverse coronary tho ry of grand traverse heart 05/26/2019 without angina pectoris Cirrhosis of [...] as of this encounter (statuses as of 12/24/2019) Immunizations Name Administration Dates Next Due TDAP [...] Assigned at Date Recorded Not on file COVID-19 Exposure Response Date Recorded In the last month, have you been in contact with Yes 12/24/2019 1:57 PM CDT someone who was confirmed or suspected to have Coronavirus / COVID-19? documented as of this encounter Last Filed Vital Signs Not on filedocumented in this encounter Nursing Notes Jose Arroyo - 12/24/2019 2:00 PM CDAlbaro Kwong is a 54 year old male here for COVID Screening with a Nasopharyngeal Swab All droplet and contact precautions taken with appropriate PPE worn while interacting with patient. ? Goggles ? N95 Mask ? Gloves ? Gown RR 18 Pulse Ox 97% Patient educated on plan of care for visit, swabbing technique, risks and benefits of test and length of time to receive results. Verbal consent obtained to perform test. CDC Fact Sheet for Patients nCoV Diagnostic Panel dated 07/11/2019 and Factsheet What to Do if Sick with COVID 19 06/21/19 provided. Patient swabbed per appropriate nasopharyngeal technique, and patient tolerated well. Patient was discharged from the testing clinic in stable condition. Jose Arroyo 12/24/2019 1:58 PM documented in this encounter Plan of Treatment Name Type Priority Associated Diagnoses Order S chedule COVID-19 (PCR MOLECULAR LAB Routine Suspected Covid-1 9 Virus Expected: 12/24/2019, TESTING) Infection Expires: 2020 Health Maintenance Due Date Last Done Comments PNEUMOCOCCAL 0-64 YEARS COMBINED 07/30/1973 SERIES (1 of 1 - PPSV23) LDL-C 07/30/1977 URINE MICROALBUMIN 07/30/1977 FOOT EXAM 07/30/1985 HgA1C 12/23/2013 06/25/2013 COLON CANCER SCREENING ANNUAL 07/30/2017 FIT/FOBT COLON CANCER SCREENING FIT DNA 07/30/2017 EVERY 3 YEARS COLON CANCER SCREENING 07/30/2017 SIGMOIDOSCOPY EVERY 5 YEARS COLONOSCOPY 07/30/2017 Colorectal Cancer Screening 07/30/2017 Zoster Recombinant Vaccine 07/30/2017 (SHINGRIX) (1 of 2) INFLUENZA VACCINE (#1) 2019 EYE EXAM 02/27/2020 02/26/2019 CREATININE (SERUM) 05/14/2020 05/14/2019, 07/10/2017, 06/07/2015, Additional history exists Depression Screening 05/26/2020 05/26/2019 DTaP,Tdap,and Td Vaccines (2 - Td) 05/26/2029 05/26/2019 documented as of this encounter Results Not on filedocumented in this encounter Visit Diagnoses Diagnosis Suspected Covid-19 Virus Infection - [facility] documented in this encounter Additional Health Concerns Infection Onset Date Last Indicated Resolved Time COVID-19 Rule Out 12/24/2019 12/24/2019 documented as of this encounter Insurance Payer Benefit Plan / Subscriber ID Effective Phone Address T e Group Dates [facility] [id number] 2019-[facility] [phone] [address] [facility] [id number] [place] [address] documented as of this encounter
--- NOTE | 2019-12-25 20:50 | RAD REPORT ---
EXAM DESCRIPTION: RAD - Chest Single View - 12/25/2019 8:21 pm CLINICAL HISTORY: COUGH COMPARISON: Portable November 26 TECHNIQUE: AP portable chest image was obtained 12/25/2019 8:21 pm . FINDINGS: Lung volumes are low. No acute lung parenchymal process seen. Dialysis catheter present on the right. Heart and vasculature are normal. No measurable pleural effusion and no pneumothorax. No acute bony abnormality seen. No acute aortic findings suspected. IMPRESSION: No chest findings of COVID-19 pneumonia or other acute cardiopulmonary process.
[2019-12-25 20:51] LABS: Absolute Lymphocytes (CBC) 1.7 K/uL (0.7-4.9); Basophils % 0.7 % (0-1.3); Hematocrit 35.2 % (39.6-49.0); Lymphocytes % 33.7 % (15.3-44.8); MPV 11.4 fL (7.6-11.3); RBC Red Blood Cell Count 3.62 M/uL (4.33-5.43)
[2019-12-25 20:52] LABS: Protime INR 0.89
[2019-12-25 21:10] LABS: ALT/SGPT 35 U/L (12-78); Albumin 2.5 g/dL (3.4-5.0); Alkaline Phosphatase 150 U/L (45-117); BUN Blood Urea Nitrogen 34 mg/dL (7-18); Bicarbonate 26 mmol/L (21-32); Bilirubin Direct < 0.1 mg/dL (0-0.2); Bilirubin Total 0.3 mg/dL (0.2-1.0); NT PRO-BNP 3216 pg/mL (<125); Protein, Total 6.7 g/dL (6.4-8.2); Sodium Level 139 mmol/L (136-145); Troponin (Emerg Dept Use Only) < 0.02 ng/mL (0.0-0.045)
[2019-12-25 21:11] LABS: AST/SGOT 22 U/L (15-37); Magnesium 1.9 mg/dL (1.8-2.4); Potassium 4.8 mmol/L (3.5-5.1)
[2019-12-25 21:12] LABS: Glucose Level 447 mg/dL (74-106)
[2019-12-25] MEDS ORDERED: INSULIN -REGULAR HUMAN 50 UNIT/0.5 ML ML ONE ×3 (21:40→22:31)
--- NOTE | 2019-12-25 22:05 | EDPHYS ---
Physician Documentation [facility] Name: Wero Kwong Age: 54 yrs Sex: Male : 1965 Arrival Date: 12/25/2019 Time: 19:43 Bed 8 Private MD: ED Physician Wallace Garcia HPI: 12/24 22:04 This 54 yrs old Male presents to ER via EMS with complaints of Cough. kb 22:04 The patient or guardian reports cough, that is intermittent, described as moderate, kb with no sputum. Onset: The symptoms/episode began/occurred 5 day(s) ago. Severity of symptoms: At their worst the symptoms were moderate, in the emergency department the symptoms are unchanged. Modifying factors: The symptoms are alleviated by nothing, the symptoms are aggravated by nothing. Associated signs and symptoms: The patient has no apparent associated signs or symptoms. The patient has not experienced similar symptoms in the past. The patient has not recently seen a physician. Pt reports cough for several days. Denies chest pain, shortness of breath, or fever. Was tested for COVID and was negative. . Historical: - Allergies: 20:07 Codeine; bb 20:07 Hydrocodone-Acetaminophen; bb 20:07 Morphine; bb - Home Meds: 20:07 lisinopril 10 mg Oral tab 1 tab once daily [Active]; citalopram 20 mg tab 1 tab once bb daily [Active]; levetiracetam 500 mg Oral tab 1 tab 2 times per day [Active]; ondansetron HCl 8 mg Oral tab 1 tab every 8 hours [Active]; tramadol 50 mg Oral tab 1 tab as needed [Active]; pantoprazole 40 mg oral TbEC 1 tab once daily [Active]; sevelamer carbonate 800 mg oral tab 1 tab twice a day [Active]; methocarbamol 500 mg Oral tab as needed [Active]; gabapentin 300 mg Oral cap 3 caps twice a day [Active]; calcium acetate 667 mg oral cap 1 caps twice a day [Active]; Nephro-Steven 0.8 mg oral tab daily [Active]; Toujeo SoloStar 300 unit/mL (1.5 mL) subcutaneous inpn 65 unit daily [Active]; Novolog 100 unit/mL Sub-Q soln three times a day [Active]; metoclopramide HCl 10 mg Oral tab [Active]; simvastatin 40 mg Oral tab 1 tab once daily [Active]; clonazepam 0.5 mg Oral tab as needed [Active]; isosobide 60 mg daily [Active]; - PMHx: 20:07 CAD; CHF; Cirrhosis; CVA; Diabetes - IDDM; dialysis (); High Cholesterol; bb Hypertension; kidney failure; Myocardial infarction; neuropathy; Seizures; - PSHx: 20:07 dialysis prot right chest; bb - Immunization history:: Adult Immunizations up to date. - Social history:: Smoking status: Patient reports the use of cigarette tobacco products, smokes one-half pack cigarettes per day. ROS: 22:03 Constitutional: Negative for fever, chills, and weight loss, Neck: Negative for injury, kb pain, and swelling, Cardiovascular: Negative for chest pain, palpitations, and edema, Abdomen/GI: Negative for abdominal pain, nausea, vomiting, diarrhea, and constipation, Back: Negative for injury and pain, MS/Extremity: Negative for injury and deformity, Skin: Negative for injury, rash, and discoloration, Neuro: Negative for headache, weakness, numbness, tingling, and seizure. 22:03 Respiratory: Positive for cough, Negative for dyspnea on exertion, hemoptysis, orthopnea, pleurisy, shortness of breath, sputum production, wheezing. Exam: 22:02 Constitutional: This is a well developed, well nourished patient who is awake, alert, kb and in no acute distress. Head/Face: Normocephalic, atraumatic. Chest/axilla: Normal chest wall appearance and motion. Nontender with no deformity. No lesions are appreciated. Respiratory: Lungs have equal breath sounds bilaterally, clear to auscultation and percussion. No rales, rhonchi or wheezes noted. No increased work of breathing, no retractions or nasal flaring. Abdomen/GI: Soft, non-tender, with normal bowel sounds. No distension or tympany. No guarding or rebound. No evidence of tenderness throughout. Skin: Warm, dry with normal turgor. Normal color with no rashes, no lesions, and no evidence of cellulitis. MS/ Extremity: Pulses equal, no cyanosis. Neurovascular intact. Full, normal range of motion. Neuro: Awake and alert, GCS 15, oriented to person, place, time, and situation. Cranial nerves II-XII grossly intact. Motor strength 5/5 in all extremities. Sensory grossly intact. Cerebellar exam normal. Normal gait. 22:02 Cardiovascular: Rate: normal, Rhythm: regular, Pulses: no pulse deficits are appreciated, Edema: pedal edema, that is mild, that is moderate, pt reports this is chronic and they have been doing aggressive treatment at dialysis to get rid of it. . Vital Signs: 19:50 BP 140 / 75; Pulse 68; Resp 16 S; Temp 98.9(O); Pulse Ox 94% on R/A; Weight 113.4 kg bb (R); Height 5 ft. 7 in. (170.18 cm) (R); Pain 9/10; 20:48 BP 151 / 65; Pulse 68; Resp 14; Pulse Ox 94% on R/A; rv 21:15 BP 129 / 58; Pulse 68; Resp 13; Pulse Ox 95% on R/A; rv 22:00 BP 148 / 76; Pulse 69; Resp 15; Pulse Ox 95% on R/A; rv 19:50 Body Mass Index 39.16 (113.40 kg, 170.18 cm) bb MDM: 20:06 Patient medically screened. kb 22:02 Data reviewed: vital signs, nurses notes. Data interpreted: Pulse oximetry: on room air kb is 95 %. Interpretation: normal. Counseling: I had a detailed discussion with the patient and/or guardian regarding: the historical points, exam findings, and any diagnostic results supporting the discharge/admit diagnosis, lab results, radiology results, the need for outpatient follow up, a family practitioner, to return to the emergency department if symptoms worsen or persist or if there are any questions or concerns that arise at home. 12/24 20:25 Order name: Basic Metabolic Panel; Complete Time: 21:15 kb 12/24 20:25 Order name: CBC with Diff; Complete Time: 21:15 kb 12/24 20:25 Order name: LFT's; Complete Time: 21:15 kb 12/24 20:25 Order name: Magnesium; Complete Time: 21:15 kb 12/24 20:25 Order name: NT PRO-BNP; Complete Time: 21:15 kb 12/24 20:25 Order name: PT-INR; Complete Time: 21:15 kb 12/24 20:06 Order name: Chest Single View XRAY; Complete Time: 20:59 kb 12/24 20:25 Order name: Troponin (emerg Dept Use Only); Complete Time: 21:15 kb 12/24 20:25 Order name: EKG; Complete Time: 20:26 kb 12/24 20:25 Order name: Cardiac monitoring; Complete Time: 20:37 kb 12/24 22:20 Order name: Glucose, Ancillary Testing; Complete Time: 22:22 EDMS 12/24 20:25 Order name: EKG - Nurse/Tech; Complete Time: 20:37 kb 12/24 20:25 Order name: IV Saline Lock; Complete Time: 20:37 kb 12/24 20:25 Order name: Labs collected and sent; Complete Time: 20:37 kb 12/24 20:25 Order name: O2 Per Protocol; Complete Time: 20:37 kb 12/24 20:25 Order name: O2 Sat Monitoring; Complete Time: 20:37 kb 12/24 22:06 Order name: Blood Glucose Level; Complete Time: 22:07 kb Administered Medications: 21:30 Drug: Insulin Regular Human 10 units {Co-Signature: [email or web address] (Josep Dumont RN).} Route: rv IVP; Site: right antecubital; 22:16 Drug: Tessalon Perle 100 mg Route: PO; rv 22:21 Drug: Insulin Regular Human 10 units {Co-Signature: [email or web address] (Josep Dumont RN).} Route: rv Sub-Q; Site: abdomen; Disposition: 12/25 06:14 Co-signature as Attending Physician, Wallace Garcia MD. [email or web address] Disposition: 12/25/19 22:05 Discharged to Home. Impression: Cough. - Condition is Stable. - Discharge Instructions: Cough, Adult, [id number]. - Medication Reconciliation Form, Thank You Letter, Antibiotic Education, Prescription Opioid Use form. - Follow up: Emergency Department; When: As needed; Reason: Worsening of condition. Follow up: Private Physician; When: 2 - 3 days; Reason: Recheck today's complaints, Continuance of care, Re-evaluation by your physician. Signatures: Dispatcher [employer] Lisa Qiu, KINJAL-C KINJAL-Donna Dickson, RN RN Twin García RN RN Wallace Costello MD MD [email or web address] Josep Dumont RN [email or web address] Corrections: (The following items were deleted from the chart) 12/24 23:16 22:05 12/25/2019 22:05 Discharged to Home. Impression: Cough. Condition is Stable. bb Forms are Medication Reconciliation Form, Thank You Letter, Antibiotic Education, Prescription Opioid Use. Follow up: Emergency Department; When: As needed; Reason: Worsening of condition. Follow up: Private Physician; When: 2 - 3 days; Reason: Recheck today's complaints, Continuance of care, Re-evaluation by your physician. kb
--- NOTE | 2019-12-25 22:05 | ER ---
Nurse's Notes [facility] Name: Wero Kwong Age: 54 yrs Sex: Male : 1965 Arrival Date: 12/25/2019 Time: 19:43 Bed 8 Private MD: Diagnosis: Cough Presentation: 12/24 19:50 Chief complaint: EMS states: they were toned out for report of pt with a cough for bb several days and recent exposure to COVID from grandson pt and both tested negative yesterday. Coronavirus screen: cough unrelated to allergies, The client reports previous COVID testing was negative. Ebola Screen: No symptoms or risks identified at this time. Initial Sepsis Screen: Does the patient meet any 2 criteria? No. Patient's initial sepsis screen is negative. Does the patient have a suspected source of infection? Yes: Productive cough/pneumonia. Risk Assessment: Do you want to hurt yourself or someone else? Patient reports no desire to harm self or others. Onset of symptoms was December 22, 2019. 19:50 Method Of Arrival: EMS: [facility] bb 19:50 Acuity: [facility] [place] [facility] 3 bb Historical: - Allergies: 20:07 Codeine; bb 20:07 Hydrocodone-Acetaminophen; bb 20:07 Morphine; bb - Home Meds: 20:07 lisinopril 10 mg Oral tab 1 tab once daily [Active]; citalopram 20 mg tab 1 tab once bb daily [Active]; levetiracetam 500 mg Oral tab 1 tab 2 times per day [Active]; ondansetron HCl 8 mg Oral tab 1 tab every 8 hours [Active]; tramadol 50 mg Oral tab 1 tab as needed [Active]; pantoprazole 40 mg oral TbEC 1 tab once daily [Active]; sevelamer carbonate 800 mg oral tab 1 tab twice a day [Active]; methocarbamol 500 mg Oral tab as needed [Active]; gabapentin 300 mg Oral cap 3 caps twice a day [Active]; calcium acetate 667 mg oral cap 1 caps twice a day [Active]; Nephro-Steven 0.8 mg oral tab daily [Active]; Toujeo SoloStar 300 unit/mL (1.5 mL) subcutaneous inpn 65 unit daily [Active]; Novolog 100 unit/mL Sub-Q soln three times a day [Active]; metoclopramide HCl 10 mg Oral tab [Active]; simvastatin 40 mg Oral tab 1 tab once daily [Active]; clonazepam 0.5 mg Oral tab as needed [Active]; isosobide 60 mg daily [Active]; - PMHx: 20:07 CAD; CHF; Cirrhosis; CVA; Diabetes - IDDM; dialysis (); High Cholesterol; bb Hypertension; kidney failure; Myocardial infarction; neuropathy; Seizures; - PSHx: 20:07 dialysis prot right chest; bb - Immunization history:: Adult Immunizations up to date. - Social history:: Smoking status: Patient reports the use of cigarette tobacco products, smokes one-half pack cigarettes per day. Screenin:48 Abuse screen: Denies threats or abuse. Denies injuries from another. Nutritional rv screening: No deficits noted. Tuberculosis screening: No symptoms or risk factors identified. Fall Risk None identified. Assessment: 20:47 General: Appears comfortable, Behavior is calm, cooperative. Pain: Denies pain. Neuro: rv Level of Consciousness is awake, alert, obeys commands, Oriented to person, place, time, situation. Cardiovascular: Patient's skin is warm and dry. Rhythm is regular. Respiratory: Reports cough that is persistent Airway is patent Respiratory effort is even, unlabored. Respiratory: Breath sounds are clear bilaterally. Derm: Skin is intact. 22:22 Reassessment: patient is comfortable. JULIETH Gonzalez explained the test results to the rv patient. new order received, regular insulin 10 units SQ, then recheck sugar before discharge. Patient denies pain at this time. 22:24 Reassessment: family updated on the phone. contact number [phone] - Caity. 23:10 Reassessment: Lisa Serna NP notified of BGL [id number] okayed pt for discharge. bb 23:14 Reassessment: Patient is alert, oriented x 3, equal unlabored respirations, skin bb warm/dry/pink. pt verbalized understanding of and agrees to plan of care discharge instructions given pt assisted to exit via wheelchair accompanied by agricultural engineering technicians. Vital Signs: 19:50 BP 140 / 75; Pulse 68; Resp 16 S; Temp 98.9(O); Pulse Ox 94% on R/A; Weight 113.4 kg bb (R); Height 5 ft. 7 in. (170.18 cm) (R); Pain 9/10; 20:48 BP 151 / 65; Pulse 68; Resp 14; Pulse Ox 94% on R/A; rv 21:15 BP 129 / 58; Pulse 68; Resp 13; Pulse Ox 95% on R/A; rv 22:00 BP 148 / 76; Pulse 69; Resp 15; Pulse Ox 95% on R/A; rv 19:50 Body Mass Index 39.16 (113.40 kg, 170.18 cm) bb ED Course: 19:43 Patient arrived in ED. cf2 20:00 Triage completed. bb 20:06 Lisa Serna FNP-C is PHCP. kb 20:06 Wallace Garcia MD is Attending Physician. kb 20:07 Arm band placed on Patient placed in an exam room, on a stretcher, on pulse oximetry. bb 20:19 Twin Upton RN is Primary Nurse. rv 20:26 Chest Single View XRAY In Process Unspecified. EDMS 20:37 Initial lab(s) drawn, by me, sent to lab. Inserted saline lock: 20 gauge in right rv antecubital area, using aseptic technique. Blood collected. 20:48 Patient has correct armband on for positive identification. lunchroom monitor on. Pulse rv ox on. NIBP on. 23:14 No provider procedures requiring assistance completed. IV discontinued, intact, bb bleeding controlled, No redness/swelling at site. Pressure dressing applied. Administered Medications: 21:30 Drug: Insulin Regular Human 10 units {Co-Signature: [email or web address] (Josep Dumont RN).} Route: rv IVP; Site: right antecubital; 22:16 Drug: Tessalon Perle 100 mg Route: PO; rv 22:21 Drug: Insulin Regular Human 10 units {Co-Signature: [email or web address] (Josep Dumont RN).} Route: rv Sub-Q; Site: abdomen; Outcome: 22:05 Discharge ordered by . kb 23:15 Discharged to home via wheelchair. bb 23:15 Condition: stable 23:15 Discharge instructions given to patient, Instructed on discharge instructions, follow up and referral plans. Demonstrated understanding of instructions, follow-up care. 23:16 Patient left the ED. bb Signatures: Dispatcher [employer] EDMS Lisa Serna FNP-C FNP-Jaz Dicksonnda, RN RN bb Twin Upton, RN RN rv Clementine Kaur 2 Josep Dumont RN [email or web address]
[2019-12-25] MEDS ORDERED: BENZONATATE 100 MG CAP PO ONE (22:20)
== END 2019-12-25 23:16 | disposition home or self-care (01) ==
LOC: ER 19:34
DX: R05 Cough (principal); F17.210 Nicotine dependence, cigarettes, uncomplicated; E11.22 Type 2 diabetes mellitus with diabetic chronic kidney disease; N18.6 End stage renal disease; G40.909 Epilepsy, unspecified, not intractable, without status epilepticus; I25.2 Old myocardial infarction; Z79.4 Long term (current) use of insulin; Z88.5 Allergy status to narcotic agent; Z99.2 Dependence on renal dialysis
CPT/HCPCS: 36415; 71045; 80048; 80076; 82947; 83735; 83880; 84484; 85025; 85610; 93005; 96372; 96374; 99284

== ENCOUNTER 2020-01-13 16:06 | Emergency (ER) | payer OTHER ==
--- OUTSIDE RECORDS SUMMARY | 2020-01-13 16:11 | XMS REPORT | Clinical Summary ---
:1965 Author Organization [facility] Address [address] [place] [address] Care Team Providers Name Role Phone MD Jere Primary Care Provider Allergies Active Allergy Reactions Severity Noted Date Comments Codeine Hives 01/06/2019 Also gives him headaches Hydrocodone-Acetaminophen Hives 01/06/2019 Morphine Hives 01/06/2019 Medications Medication Sig Dispensed Refills Start Date End Date Status aspirin 81 MG Take 81 mg by mouth 0 Active chewable tablet daily. citalopram (CELEXA) Take 20 mg by mouth 0 Active 20 MG tablet daily. gabapentin Take 300 mg by mouth 0 Active (NEURONTIN) 300 MG daily. capsule clopidogrel (PLAVIX) Take 75 mg by mouth 0 Active 75 mg tablet daily. simvastatin (ZOCOR) Take 80 mg by mouth 0 Active 80 MG tablet daily. spironolactone Take 25 mg by mouth 0 Active (ALDACTONE) 25 MG daily. tablet levETIRAcetam Take 500 mg by mouth 0 Active (KEPPRA) 500 MG daily. tablet insulin 70/30, Inject 80 Units 0 Active insulin NPH-insulin subcutaneously 2 regular, (HUMULIN (two) times daily 70/30) 100 unit/mL before meals. (70-30) injection travoprost (TRAVATAN Place 1 drop into 0 Active Z) 0.004 % Drop both eyes nightly. ophthalmic drops furosemide (LASIX) Take 1 tablet (20 mg 30 tablet 0 01/11/2019 Active 20 MG tablet total) by mouth daily. metoprolol Take 1 tablet (50 mg 30 tablet 0 01/12/2019 Active (TOPROL-XL) 50 MG 24 total) by mouth hr tablet daily. ranolazine (RANEXA) Take 1 tablet (500 60 tablet 0 01/11/2019 Active 500 MG 12 hr tablet mg total) by mouth 2 (two) times daily. Active Problems Problem Noted Date Subdural hematoma due to concussion, with loss of cons ciousness, 01/08/2019 subsequent encounter Unstable angina 01/08/2019 Hyperglycemia due to type 2 diabetes mellitus 01/09/20 19 Hypertension 01/08/2019 CKD (chronic kidney disease) 01/08/2019 Family History Medical History Relation Name Comments [...] travel history available. Last Filed Vital Signs Not on file Plan of Treatment Not on file Procedures Procedure Name Priority Date/Time Associated Diagnosis Comme nts RHYTHM STRIP - SCAN 01/12/2019 3:42 PM CDT after 01/12/2019 Results RHYTHM STRIP - SCAN (01/12/2019 3:42 PM CDT) Narrative Performed At This result has an attachment that is no t available. after 01/12/2019 Advance Directives For more information, please contact:[id number] [place], [place] [phone] Code Status Date Activated Date Inactivated Comments Full Code 01/06/2019 5:51 PM 01/11/2019 7:13 PM This code status was determined by: Patient
--- OUTSIDE RECORDS SUMMARY | 2020-01-13 16:11 | XMS REPORT | Clinical Summary ---
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 Cirrhosis 12/01/2016 Hypertriglyceridemia 12/01/2016 Depression 12/01/2016 Encounters Date Type Specialty Care Team Description 12/30/2019 Travel 12/28/2019 Emergency Emergency Medicine Kelvin Palomino Hypervole cristóbal, unspecified hypervolemia type (Primary Dx); MD Aniceto Hyperkalemia 12/28/2019 Travel 08/09/2019 Telephone Ophthalmology Barbi Suarez MD 07/19/2019 Patient Outreach Quality Ana Paula Martin RN 07/19/2019 Telephone Ophthalmology Barbi Suarez MD 07/03/2019 Documentation General Internal [place], Medicine HAYLEE Tellez 07/02/2019 Telephone Ophthalmology Jennifer Tyler MD 07/01/2019 Ophth Exam Ophthalmology Shea Whitehead MD 07/01/2019 Telephone Ophthalmology Dana Llamas MA 06/12/2019 Hospital Encounter General Internal Guillermo Jeffery Acute renal failure, unspecified acute renal failure type (HCC) (Primary Dx); - Medicine MD Ryan Tachycardia; 07/16/2019 Tomi, Chest pain, uns pecified type; Milton Schumacher Shortcassie magana; MD Adelfo Chronic hyperte nsion; Coronary arteri osclerosis due to lipid rich plaque; Controlled type 2 diabetes mellitus with other specified complication, without long-term current use of insulin (HCC); Nausea vomiting and diarrhea; Hyperglycemia; Cirrhosis of li [place] without ascites, unspecified hepatic cirrhosis type (HCC); Essential hyper tension; Coronary artery disease involving qawalangin coronary artery of qawalangin heart with angina pectoris (HCC); Current mild ep isode of major depressive disorder without prior episode (HCC); 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 COVID-19 Exposure Response Date Recorded In the last month, have you been in contact with No / Unsure 12/30/2019 7:34 AM CDT someone who was confirmed or suspected to have Coronavirus / COVID-19? Last Filed Vital Signs Vital Sign Reading Time Taken Comments Blood Pressure 122/73 12/28/2019 10:43 PM CDT Pulse 74 12/28/2019 10:43 PM CDT Temperature 37.5 C (99.5 F) 12/28/2019 5:21 PM CDT Respiratory Rate 16 12/28/2019 10:43 PM CDT Oxygen Saturation 94% 12/28/2019 10:43 PM CDT Inhaled Oxygen Concentration - - Weight 96.2 kg (212 lb) 07/06/2019 1:11 PM CDT Height 170.2 cm (5' 7") 07/06/2019 1:11 PM CDT Body Mass Index 33.2 07/06/2019 1:11 PM CDT Plan of Treatment Health Maintenance Due Date Last Done Comments DIABETIC FOOT EXAM 07/30/1977 COLONOSCOPY SCREENING 07/30/2017 SHINGLES VACCINES (#1) 07/30/2017 INFLUENZA VACCINE 12/28/2019 DIABETIC RETINAL EYE EXAM 06/30/2021 07/01/2019, 07/01/2019 , 07/01/2019, Additional history exists Implants Implanted Type Area Pig Handler Device Shelf Model / Identifier Expiration Serial / Date Lot Orthopedic Orthopedic Surgical Surgical Implants Implants Procedures Procedure Name Priority Date/Time Associated Comments Diagnosis CT CHEST WO CONTRAST STAT 12/28/2019 9:29 Res ults for this PM CDT procedure are i n the results section. CT HEAD WO CONTRAST STAT 12/28/2019 9:28 Resu lts for this PM CDT procedure are i n the results section. XR CHEST 1 VW PORTABLE STAT 12/28/2019 8:55 R esults for this PM CDT procedure are i n the results section. ECG ED PRELIMINARY Routine 12/28/2019 8:54 Resul ts for this INTERPRETATION PM CDT procedure are in the results section. ESTIMATED GFR STAT 12/28/2019 7:16 Results fo r this PM CDT procedure are i n the results section. B NATRIURETIC PEPTIDE STAT 12/28/2019 7:16 Re sults for this PM CDT procedure are i n the results section. TROPONIN STAT 12/28/2019 7:16 Results for this PM CDT procedure are i n the results section. COMPREHENSIVE METABOLIC STAT 12/28/2019 7:16 Results for this PANEL PM CDT procedure are i n the results section. HC COMPLETE BLD COUNT STAT 12/28/2019 7:16 Re sults for this W/AUTO DIFF PM CDT procedure are i n the results section. ECG 12-LEAD STAT 12/28/2019 6:32 Results for this PM CDT procedure are i n the results section. POC GLUCOSE Routine 07/16/2019 12:29 Results for [...] DOPPLER AM CDT procedur e are in ([address]) the results section. POC GLUCOSE Routine 07/05/2019 [...] Routine 07/03/2019 9:52 Results for this PM IND[employer]RIAL [employer]INTER procedure are i n the results section. POC GLUCOSE Routine 07/03/2019 4:16 Results for this PM [employer]RIAL PAINTER procedure are i n the results section. POC GLUCOSE Routine 07/03/2019 12:31 Results for this PM [employer]RIAL PAINTER procedure are i n the results section. POC GLUCOSE Routine 07/03/2019 11:50 Results for this AM [employer]RIAL PAINTER procedure are i n the results section. POC GLUCOSE Routine 07/03/2019 7:48 Results for this AM [employer]RIAL [employer]INTER procedure are i n the results section. ESTIMATED GFR Routine 07/03/2019 4:00 Results fo r this AM [employer]RIAL [employer]INTER procedure are i n the results section. VANCOMYCIN LEVEL, RANDOM Routine 07/03/2019 4:00 Results for this AM [employer]RIAL [employer]INTER procedure are i n the results section. PHOSPHORUS LEVEL Routine 07/03/2019 4:00 Results for this AM [employer]AL [employer]INTER procedure are i n the results section. MAGNESIUM LEVEL Routine 07/03/2019 4:00 Results for this AM [employer]RIAL PAINTER procedure are i n the results section. BASIC METABOLIC PANEL Routine 07/03/2019 4:00 Re sults for this AM [employer]RIAL PAINTER procedure are i n the results section. POC GLUCOSE Routine 07/02/2019 9:29 Results for this PM [employer]RIAL PAINTER procedure are i n the results section. POC GLUCOSE Routine 07/02/2019 6:48 Results for this PM [employer]RIAL PAINTER procedure are i n the results section. ESTIMATED GFR Routine 07/02/2019 4:05 Results fo r this PM [employer]RIAL [employer]INTER procedure are i n the results section. BASIC METABOLIC PANEL Routine 07/02/2019 4:05 Re sults for this PM [employer]RIAL PAINTER procedure are i n the results section. POC GLUCOSE Routine 07/02/2019 4:03 Results for this PM [employer]RIAL [employer]INTER procedure are i n the results section. VENIPUNC NEED PHYS Routine 07/02/2019 2:59 Resul ts for this SKILL,DX OR RX PM [employer]RIAL [employer]INTER procedure are in the results section. POC GLUCOSE Routine 07/02/2019 11:52 Results for this AM [employer]RIAL PAINTER procedure are i n the results section. POC GLUCOSE Routine 07/02/2019 8:44 Results for this AM [employer]RIAL PAINTER procedure are i n the results section. ESTIMATED GFR Routine 07/02/2019 4:00 Results fo r this AM [employer]RIAL PAINTER procedure are i n the results section. PHOSPHORUS LEVEL Routine 07/02/2019 4:00 Results for this AM [employer]RIAL PAINTER procedure are i n the results section. MAGNESIUM LEVEL Routine 07/02/2019 4:00 Results for this AM [employer]RIAL PAINTER procedure are i n the results section. BASIC METABOLIC PANEL Routine 07/02/2019 4:00 Re sults for this AM [employer]RIAL PAINTER procedure are i n the results section. VANCOMYCIN LEVEL, RANDOM Routine 07/02/2019 4:00 Results for this AM [employer]RIAL PAINTER procedure are i n the results section. POC GLUCOSE Routine 07/01/2019 9:39 Results for this PM [employer]RIAL PAINTER procedure are i n the results section. POC GLUCOSE Routine 07/01/2019 5:04 Results for this PM [employer]RIAL PAINTER procedure are i n the results section. VANCOMYCIN LEVEL, TROUGH Timed 07/01/2019 2:30 Results for this PM [employer]RIAL PAINTER procedure are i n the results section. POC GLUCOSE Routine 07/01/2019 12:20 Results for this PM [employer]RIAL PAINTER procedure are i n the results section. POC GLUCOSE Routine 07/01/2019 8:33 Results for this AM [employer]RIAL PAINTER procedure are i n the results section. POC GLUCOSE Routine 07/01/2019 4:13 Results for this AM [employer]RIAL PAINTER procedure are i n the results section. ESTIMATED GFR Routine 07/01/2019 4:00 Results fo r this AM [employer]INTER procedure are i n the results section. HEPATIC FUNCTION PANEL Routine 07/01/2019 4:00 R esults for this AM [employer]RIAL PAINTER procedure are i n the results section. PHOSPHORUS LEVEL Routine 07/01/2019 4:00 Results for this AM INDUSTRIAL PAINTER procedure are i n the results section. MAGNESIUM LEVEL Routine 07/01/2019 4:00 Results for this AM INDUSTRIAL PAINTER procedure are i n the results section. BASIC METABOLIC PANEL Routine 07/01/2019 4:00 Re sults for this AM INDUSTRIAL PAINTER procedure are i n the results section. POC GLUCOSE Routine 06/30/2019 11:36 Results for this PM [employer]RIAL PAINTER procedure are i n the results section. POC GLUCOSE Routine 06/30/2019 9:09 Results for this PM INDUSTRIAL PAINTER procedure are i n the results section. POC GLUCOSE Routine 06/30/2019 5:15 Results for this PM [employer]USTRIAL PAINTER procedure are i n the results section. POC GLUCOSE Routine 06/30/2019 2:40 Results for this PM [employer]RIAL PAINTER procedure are i n the results section. POC GLUCOSE Routine 06/30/2019 11:58 Results for this AM [employer]RIAL PAINTER procedure are i n the results section. SURGICAL PATHOLOGY Routine 06/30/2019 11:36 Resul ts for this REQUEST AM INDUSTRIAL PAINTER procedure are i n the results section. POC GLUCOSE Routine 06/30/2019 10:00 Results for this AM [employer]RIAL PAINTER procedure are i n the results section. IR TRANSJUGULAR LIVER Routine 06/30/2019 9:39 Re sults for this BIOPSY AM IND[employer]RIAL PAINTER procedure are i n the results section. ESTIMATED GFR Routine 06/30/2019 4:03 Results fo r this AM [employer]RIAL PAINTER procedure are i n the results section. VANCOMYCIN LEVEL, RANDOM Routine 06/30/2019 4:03 Results for this AM [employer]AL PAINTER procedure are i n the results section. HEPATIC FUNCTION PANEL Routine 06/30/2019 4:03 R esults for this AM [employer]RIAL PAINTER procedure are i n the results section. PHOSPHORUS LEVEL Routine 06/30/2019 4:03 Results for this AM [employer]RIAL PAINTER procedure are i n the results section. MAGNESIUM LEVEL Routine 06/30/2019 4:03 Results for this AM IND[employer]RIAL PAINTER procedure are i n the results section. BASIC METABOLIC PANEL Routine 06/30/2019 4:03 Re sults for this AM [employer]RIAL PAINTER procedure are i n the results section. POC GLUCOSE Routine 06/29/2019 9:21 Results for this PM IND[employer]RIAL PAINTER procedure are i n the results section. POC GLUCOSE Routine 06/29/2019 4:06 Results for this PM [employer]RIAL PAINTER procedure are i n the results section. POC GLUCOSE Routine 06/29/2019 12:30 Results for this PM [employer]RIAL PAINTER procedure are i n the results section. POC GLUCOSE Routine 06/29/2019 8:25 Results for this AM [employer]AL PAINTER procedure are i n the results section. ESTIMATED GFR Routine 06/29/2019 4:54 Results fo r this AM [employer]AL PAINTER procedure are i n the results section. HEPATIC FUNCTION PANEL Routine 06/29/2019 4:54 R esults for this AM [employer]RIAL PAINTER procedure are i n the results section. VANCOMYCIN LEVEL, RANDOM Routine 06/29/2019 4:54 Results for this AM [employer]INTER procedure are i n the results section. HC COMPLETE BLD COUNT Routine 06/29/2019 4:54 Re sults for this W/AUTO DIFF AM [employer]RIAL PAINTER procedure are i n the results section. PHOSPHORUS LEVEL Routine 06/29/2019 4:54 Results for this AM [employer]AL PAINTER procedure are i n the results section. MAGNESIUM LEVEL Routine 06/29/2019 4:54 Results for this AM [employer]INTER procedure are i n the results section. BASIC METABOLIC PANEL Routine 06/29/2019 4:54 Re sults for this AM [employer]AL [employer]INTER procedure are i n the results section. POC GLUCOSE Routine 06/28/2019 8:33 Results for this PM [employer]RIAL PAINTER procedure are i n the results section. POC GLUCOSE Routine 06/28/2019 4:06 Results for this PM [employer]AL PAINTER procedure are i n the results section. POC GLUCOSE Routine 06/28/2019 12:29 Results for this PM [employer]AL PAINTER procedure are i n the results section. HEPATIC FUNCTION PANEL Routine 06/28/2019 12:23 R esults for this PM [employer]RIAL PAINTER procedure are i n the results section. ECG 12-LEAD STAT 06/28/2019 9:41 Results for this AM [employer]AL [employer] procedure are i n the results section. POC GLUCOSE Routine 06/28/2019 9:14 Results for this AM [employer] procedure are i n the results section. HEPATIC FUNCTION PANEL Timed 06/28/2019 9:13 R esults for this AM [employer]INTER procedure are i n the results section. TROPONIN Timed 06/28/2019 9:13 Results for this AM [employer]AL [employer]INTER procedure are i n the results section. ESTIMATED GFR Routine 06/28/2019 5:22 Results fo r this AM [employer] procedure are i n the results section. VANCOMYCIN LEVEL, RANDOM Routine 06/28/2019 5:22 Results for this AM [employer]RIAL PAINTER procedure are i n the results section. PHOSPHORUS LEVEL Routine 06/28/2019 5:22 Results for this AM [employer]AL PAINTER procedure are i n the results section. MAGNESIUM LEVEL Routine 06/28/2019 5:22 Results for this AM [employer]AL PAINTER procedure are i n the results section. BASIC METABOLIC PANEL Routine 06/28/2019 5:22 Re sults for this AM [employer]RIAL PAINTER procedure are i n the results section. POC GLUCOSE Routine 06/27/2019 9:03 Results for this PM [employer]AL [employer] procedure are i n the results section. POC GLUCOSE Routine 06/27/2019 5:04 Results for this PM [employer]RIAL PAINTER procedure are i n the results section. POC GLUCOSE Routine 06/27/2019 2:07 Results for this PM [employer]RIAL PAINTER procedure are i n the results section. POC GLUCOSE Routine 06/27/2019 11:57 Results for this AM [employer] procedure are i n the results section. POC GLUCOSE Routine 06/27/2019 8:26 Results for this AM [employer]INTER procedure are i n the results section. ECG 12-LEAD Routine 06/27/2019 8:13 Results for this AM [employer]AL [employer] procedure are i n the results section. ESTIMATED GFR Routine 06/27/2019 5:14 Results fo r this AM [employer]INTER procedure are i n the results section. VANCOMYCIN LEVEL, RANDOM Routine 06/27/2019 5:14 Results for this AM [employer]RIAL PAINTER procedure are i n the results section. PHOSPHORUS LEVEL Routine 06/27/2019 5:14 Results for this AM [employer]RIAL PAINTER procedure are i n the results section. MAGNESIUM LEVEL Routine 06/27/2019 5:14 Results for this AM [employer]RIAL PAINTER procedure are i n the results section. BASIC METABOLIC PANEL Routine 06/27/2019 5:14 Re sults for this AM [employer]RIAL PAINTER procedure are i n the results section. POC GLUCOSE Routine 06/26/2019 9:21 Results for this PM [employer]RIAL PAINTER procedure are i n the results section. POC GLUCOSE Routine 06/26/2019 7:41 Results for this PM [employer]RIAL PAINTER procedure are i n the results section. POC GLUCOSE Routine 06/26/2019 7:12 Results for this PM [employer]AL PAINTER procedure are i n the results section. ULTRAFILTRATION Routine 06/26/2019 1:39 PM INDUSTRIAL PAINTER POC GLUCOSE Routine 06/26/2019 12:05 Results for this PM [employer]RIAL PAINTER procedure are i n the results section. POC GLUCOSE Routine 06/26/2019 8:54 Results for this AM [employer] procedure are i n the results section. ESTIMATED GFR Routine 06/26/2019 6:25 Results fo r this AM [employer] procedure are i n the results section. VANCOMYCIN LEVEL, RANDOM Routine 06/26/2019 6:25 Results for this AM [employer] procedure are i n the results section. HC COMPLETE BLD COUNT Routine 06/26/2019 6:25 Re sults for this W/AUTO DIFF AM [employer]RIAL PAINTER procedure are i n the results section. PHOSPHORUS LEVEL Routine 06/26/2019 6:25 Results for this AM [employer]RIAL PAINTER procedure are i n the results section. MAGNESIUM LEVEL Routine 06/26/2019 6:25 Results for this AM [employer]RI[employer] PAINTER procedure are i n the results section. BASIC METABOLIC PANEL Routine 06/26/2019 6:25 Re sults for this AM [employer]INTER procedure are i n the results section. POC GLUCOSE Routine 06/25/2019 11:39 Results for this PM [employer]RIAL PAINTER procedure are i n the results section. HEMODIALYSIS Routine 06/25/2019 9:44 PM [employer]USTRIAL PAINTER POC GLUCOSE Routine 06/25/2019 9:14 Results for this PM [employer]RIAL PAINTER procedure are i n the results section. ESTIMATED GFR Routine 06/25/2019 6:45 Results fo r this PM [employer]RIAL [employer]INTER procedure are i n the results section. PHOSPHORUS LEVEL Routine 06/25/2019 6:45 Results for this PM [employer]RIAL PAINTER procedure are i n the results section. BASIC METABOLIC PANEL Routine 06/25/2019 6:45 Re sults for this PM [employer]RIAL PAINTER procedure are i n the results section. POC GLUCOSE Routine 06/25/2019 3:45 Results for this PM [employer]RIAL PAINTER procedure are i n the results section. POC GLUCOSE Routine 06/25/2019 11:30 Results for this AM [employer]RIAL PAINTER procedure are i n the results section. POC GLUCOSE Routine 06/25/2019 7:47 Results for this AM [employer]INTER procedure are i n the results section. POC GLUCOSE Routine 06/25/2019 12:05 Results for this AM [employer]RIAL PAINTER procedure are i n the results section. POC GLUCOSE Routine 06/24/2019 9:12 Results for this PM [employer]RIAL PAINTER procedure are i n the results section. POC GLUCOSE Routine 06/24/2019 4:22 Results for this PM [employer]RIAL PAINTER procedure are i n the results section. POC GLUCOSE Routine 06/24/2019 1:17 Results for this PM [employer]RIAL PAINTER procedure are i n the results section. HEMODIALYSIS Routine 06/24/2019 11:11 AM INDUSTRIAL PAINTER POC GLUCOSE Routine 06/24/2019 7:35 Results for this AM [employer]AL [employer]INTER procedure are i n the results section. ESTIMATED GFR Routine 06/24/2019 4:00 Results fo r this AM [employer] procedure are i n the results section. HC COMPLETE BLD COUNT Routine 06/24/2019 4:00 Re sults for this W/AUTO DIFF AM [employer]AL [employer]INTER procedure are i n the results section. HEPATIC FUNCTION PANEL Routine 06/24/2019 4:00 R esults for this AM [employer]RIAL PAINTER procedure are i n the results section. PHOSPHORUS LEVEL Routine 06/24/2019 4:00 Results for this AM [employer]RIAL PAINTER procedure are i n the results section. MAGNESIUM LEVEL Routine 06/24/2019 4:00 Results for this AM [employer]RIAL PAINTER procedure are i n the results section. BASIC METABOLIC PANEL Routine 06/24/2019 4:00 Re sults for this AM [employer]RIAL PAINTER procedure are i n the results section. POC GLUCOSE Routine 06/23/2019 6:00 Results for this PM [employer]RIAL PAINTER procedure are i n the results section. HEMODIALYSIS Routine 06/23/2019 12:21 PM INDUSTRIAL PAINTER POC GLUCOSE Routine 06/23/2019 11:18 Results for this AM [employer]AL [employer]INTER procedure are i n the results section. IR TUNNELED DIALYSIS Routine 06/23/2019 10:03 Res ults for this CATHETER PLACEMENT AM [employer]RIAL PAINTER procedure are in the results section. POC GLUCOSE Routine 06/23/2019 9:54 Results for this AM [employer]INTER procedure are i n the results section. POC GLUCOSE Routine 06/23/2019 8:19 Results for this AM [employer]AL [employer]INTER procedure are i n the results section. ESTIMATED GFR Routine 06/23/2019 5:30 Results fo r this AM [employer]INTER procedure are i n the results section. HC COMPLETE BLD COUNT Routine 06/23/2019 5:30 Re sults for this W/AUTO DIFF AM [employer]RIAL [employer]INTER procedure are i n the results section. HEPATIC FUNCTION PANEL Routine 06/23/2019 5:30 R esults for this AM [employer]RIAL PAINTER procedure are i n the results section. PHOSPHORUS LEVEL Routine 06/23/2019 5:30 Results for this AM [employer]RIAL PAINTER procedure are i n the results section. MAGNESIUM LEVEL Routine 06/23/2019 5:30 Results for this AM [employer]RIAL PAINTER procedure are i n the results section. BASIC METABOLIC PANEL Routine 06/23/2019 5:30 Re sults for this AM [employer]RIAL PAINTER procedure are i n the results section. POC GLUCOSE Routine 06/22/2019 9:30 Results for this PM [employer]RIAL PAINTER procedure are i n the results section. POC GLUCOSE Routine 06/22/2019 12:28 Results for this PM [employer]RIAL PAINTER procedure are i n the results section. POC GLUCOSE Routine 06/22/2019 8:38 Results for this AM [employer]RIAL PAINTER procedure are i n the results section. ESTIMATED GFR Routine 06/22/2019 4:30 Results fo r this AM [employer]RIAL [employer]INTER procedure are i n the results section. HEPATIC FUNCTION PANEL Routine 06/22/2019 4:30 R esults for this AM [employer]RIAL [employer]INTER procedure are i n the results section. HC COMPLETE BLD COUNT Routine 06/22/2019 4:30 Re sults for this W/AUTO DIFF AM [employer]RIAL PAINTER procedure are i n the results section. PHOSPHORUS LEVEL Routine 06/22/2019 4:30 Results for this AM [employer]RIAL PAINTER procedure are i n the results section. MAGNESIUM LEVEL Routine 06/22/2019 4:30 Results for this AM [employer]RIAL PAINTER procedure are i n the results section. BASIC METABOLIC PANEL Routine 06/22/2019 4:30 Re sults for this AM [employer]RIAL PAINTER procedure are i n the results section. POC GLUCOSE Routine 06/22/2019 12:07 Results for this AM [employer]RIAL PAINTER procedure are i n the results section. POC GLUCOSE Routine 06/21/2019 9:03 Results for this PM [employer]RIAL PAINTER procedure are i n the results section. POC GLUCOSE Routine 06/21/2019 7:26 Results for this PM [employer]RIAL PAINTER procedure are i n the results section. POC GLUCOSE Routine 06/21/2019 4:33 Results for this PM [employer]AL [employer] procedure are i n the results section. XR ABDOMEN 1 VW PORTABLE Routine 06/21/2019 4:08 Results for this PM [employer]AL [employer] procedure are i n the results section. POC GLUCOSE Routine 06/21/2019 11:46 Results for this AM [employer] procedure are i n the results section. POC GLUCOSE Routine 06/21/2019 8:15 Results for this AM [employer]RIAL PAINTER procedure are i n the results section. ESTIMATED GFR Routine 06/21/2019 4:00 Results fo r this AM [employer]RIAL PAINTER procedure are i n the results section. PHOSPHORUS LEVEL Routine 06/21/2019 4:00 Results for this AM [employer]RIAL PAINTER procedure are i n the results section. MAGNESIUM LEVEL Routine 06/21/2019 4:00 Results for this AM [employer]RIAL PAINTER procedure are i n the results section. BASIC METABOLIC PANEL Routine 06/21/2019 4:00 Re sults for this AM [employer]RIAL PAINTER procedure are i n the results section. POC GLUCOSE Routine 06/20/2019 9:33 Results for this PM [employer]AL [employer]INTER procedure are i n the results section. GRAM STAIN Routine 06/20/2019 5:32 Results for this PM [employer]RIAL [employer]INTER procedure are i n the results section. AEROBIC CULTURE Routine 06/20/2019 5:32 Results for this PM [employer]AL [employer] procedure are i n the results section. POC GLUCOSE Routine 06/20/2019 3:51 Results for this PM [employer]RIAL PAINTER procedure are i n the results section. POC GLUCOSE Routine 06/20/2019 12:25 Results for this PM [employer]RIAL PAINTER procedure are i n the results section. POC GLUCOSE Routine 06/20/2019 7:34 Results for this AM [employer]RIAL PAINTER procedure are i n the results section. ESTIMATED GFR Routine 06/20/2019 4:00 Results fo r this AM [employer]RIAL PAINTER procedure are i n the results section. PHOSPHORUS LEVEL Routine 06/20/2019 4:00 Results for this AM [employer]RIAL PAINTER procedure are i n the results section. MAGNESIUM LEVEL Routine 06/20/2019 4:00 Results for this AM [employer]RIAL PAINTER procedure are i n the results section. BASIC METABOLIC PANEL Routine 06/20/2019 4:00 Re sults for this AM [employer]RIAL PAINTER procedure are i n the results section. HEPATIC FUNCTION PANEL Routine 06/20/2019 4:00 R esults for this AM [employer]AL [employer]INTER procedure are i n the results section. POC GLUCOSE Routine 06/19/2019 9:31 Results for this PM [employer]RIAL PAINTER procedure are i n the results section. PROTEIN, URINE, RANDOM Routine 06/19/2019 7:06 R esults for this PM [employer]AL PAINTER procedure are i n the results section. CREATININE LEVEL, URINE, Routine 06/19/2019 7:06 Results for this RANDOM PM [employer]RIAL PAINTER procedure are i n the results section. POC GLUCOSE Routine 06/19/2019 4:08 Results for this PM [employer]RIAL PAINTER procedure are i n the results section. POC GLUCOSE Routine 06/19/2019 12:34 Results for this PM INDUSTRIAL PAINTER procedure are i n the results section. POC GLUCOSE Routine 06/19/2019 7:42 Results for this AM INDUSTRIAL PAINTER procedure are i n the results section. ESTIMATED GFR Routine 06/19/2019 12:00 Results fo r this AM INDUSTRIAL PAINTER procedure are i n the results section. PHOSPHORUS LEVEL Routine 06/19/2019 12:00 Results for this AM INDUSTRIAL PAINTER procedure are i n the results section. MAGNESIUM LEVEL Routine 06/19/2019 12:00 Results for this AM INDUSTRIAL PAINTER procedure are i n the results section. BASIC METABOLIC PANEL Routine 06/19/2019 12:00 Re sults for this AM INDUSTRIAL PAINTER procedure are i n the results section. HEPATIC FUNCTION PANEL Routine 06/19/2019 12:00 R esults for this AM INDUSTRIAL PAINTER procedure are i n the results section. ANTI MITOCHONDRIA SCREEN Routine 06/19/2019 12:00 Results for this AM INDUSTRIAL PAINTER procedure are i n the results section. ANTI SMOOTH MUSCLE AB Routine 06/19/2019 12:00 Re sults for this SCREEN AM INDUSTRIAL PAINTER procedure are i n the results section. POC GLUCOSE Routine 06/18/2019 9:10 Results for this PM IND[employer]RIAL PAINTER procedure are i n the results section. POC GLUCOSE Routine 06/18/2019 4:07 Results for this PM [employer]RIAL PAINTER procedure are i n the results section. POC GLUCOSE Routine 06/18/2019 11:14 Results for this AM INDUSTRIAL PAINTER procedure are i n the results section. POC GLUCOSE Routine 06/18/2019 7:29 Results for this AM INDUSTRIAL PAINTER procedure are i n the results section. URINE CULTURE Routine 06/18/2019 7:24 Results fo r this AM INDUSTRIAL PAINTER procedure are i n the results section. URINALYSIS SCREEN AND Routine 06/18/2019 5:30 Re sults for this MICROSCOPY, WITH REFLEX AM INDUSTRIAL PAINTER proc edure are in TO CULTURE the results section. AMMONIA LEVEL Routine 06/18/2019 5:00 Results fo r this AM INDUSTRIAL PAINTER procedure are i n the results section. HEPATITIS B SURFACE AB, Routine 06/18/2019 5:00 Results for this QUANTITATIVE AM INDUSTRIAL PAINTER procedure are i n the results section. HC COMPLETE BLD COUNT Routine 06/18/2019 5:00 Re sults for this W/AUTO DIFF AM INDUSTRIAL PAINTER procedure are i n the results section. PROTHROMBIN TIME WITH Routine 06/18/2019 5:00 Re sults for this INR AM INDUSTRIAL PAINTER procedure are i n the results section. ESTIMATED GFR Routine 06/18/2019 4:00 Results fo r this AM INDUSTRIAL PAINTER procedure are i n the results section. GGT Routine 06/18/2019 4:00 Results for this AM INDUSTRIAL PAINTER procedure are i n the results section. ANNE Routine 06/18/2019 4:00 Results for this AM INDUSTRIAL PAINTER procedure are i n the results section. ALPHA-1 ANTITRYPSIN Routine 06/18/2019 4:00 Resu lts for this LEVEL AM INDUSTRIAL PAINTER procedure are i n the results section. ALPHA FETOPROTEIN Routine 06/18/2019 4:00 Result s for this AM INDUSTRIAL PAINTER procedure are i n the results section. CERULOPLASMIN LEVEL Routine 06/18/2019 4:00 Resu lts for this AM IND[employer]RIAL PAINTER procedure are i n the results section. HEPATITIS C ANTIBODY Routine 06/18/2019 4:00 Res ults for this AM IND[employer]RIAL PAINTER procedure are i n the results section. HEPATITIS B SURFACE Routine 06/18/2019 4:00 Resu lts for this ANTIGEN AM INDUSTRIAL PAINTER procedure are i n the results section. HEPATITIS B SURFACE Routine 06/18/2019 4:00 Resu lts for this ANTIBODY AM [employer]RIAL PAINTER procedure are i n the results section. HEPATITIS B CORE Routine 06/18/2019 4:00 Results for this ANTIBODY TOTAL AM INDUSTRIAL PAINTER procedure are in the results section. HEPATITIS B CORE Routine 06/18/2019 4:00 Results for this ANTIBODY IGM AM INDUSTRIAL PAINTER procedure are i n the results section. HEPATITIS A ANTIBODY IGM Routine 06/18/2019 4:00 Results for this AM INDUSTRIAL PAINTER procedure are i n the results section. PHOSPHORUS LEVEL Routine 06/18/2019 4:00 Results for this AM INDUSTRIAL PAINTER procedure are i n the results section. MAGNESIUM LEVEL Routine 06/18/2019 4:00 Results for this AM INDUSTRIAL PAINTER procedure are i n the results section. BASIC METABOLIC PANEL Routine 06/18/2019 4:00 Re sults for this AM INDUSTRIAL PAINTER procedure are i n the results section. HEPATIC FUNCTION PANEL Routine 06/18/2019 4:00 R esults for this AM INDUSTRIAL PAINTER procedure are i n the results section. POC GLUCOSE Routine 06/17/2019 9:17 Results for this PM IND[employer]RIAL PAINTER procedure are i n the results section. POC GLUCOSE Routine 06/17/2019 5:07 Results for this PM IND[employer]RIAL PAINTER procedure are i n the results section. US ABDOMEN COMPLETE Routine 06/17/2019 4:48 Resu lts for this PM IND[employer]RIAL PAINTER procedure are i n the results section. US ABDOMINAL DOPPLER Routine 06/17/2019 4:48 Res ults for this PM [employer]RIAL PAINTER procedure are i n the results section. US RENAL Routine 06/17/2019 2:26 Results for this PM IND[employer]RIAL PAINTER procedure are i n the results section. POC GLUCOSE Routine 06/17/2019 11:38 Results for this AM INDUSTRIAL PAINTER procedure are i n the results section. POC GLUCOSE Routine 06/17/2019 8:22 Results for this AM INDUSTRIAL PAINTER procedure are i n the results section. TISSUE TRANSGLUTAMINASE Routine 06/17/2019 4:53 Results for this AB, IGA AM INDUSTRIAL PAINTER procedure are i n the results section. ESTIMATED GFR Routine 06/17/2019 4:53 Results fo r this AM INDUSTRIAL PAINTER procedure are i n the results section. PHOSPHORUS LEVEL Routine 06/17/2019 4:53 Results for this AM INDUSTRIAL PAINTER procedure are i n the results section. MAGNESIUM LEVEL Routine 06/17/2019 4:53 Results for this AM INDUSTRIAL PAINTER procedure are i n the results section. BASIC METABOLIC PANEL Routine 06/17/2019 4:53 Re sults for this AM INDUSTRIAL PAINTER procedure are i n the results section. CELIAC DISEASE REFLEXIVE Routine 06/17/2019 4:53 Results for this CASCADE AM INDUSTRIAL PAINTER procedure are i n the results section. POC GLUCOSE Routine 06/17/2019 12:44 Results for this AM INDUSTRIAL PAINTER procedure are i n the results section. POC GLUCOSE Routine 06/16/2019 9:02 Results for this PM INDUSTRIAL PAINTER procedure are i n the results section. POC GLUCOSE Routine 06/16/2019 4:27 Results for this PM INDUSTRIAL PAINTER procedure are i n the results section. POC GLUCOSE Routine 06/16/2019 12:07 Results for this PM INDUSTRIAL PAINTER procedure are i n the results section. ECG 12-LEAD Routine 06/16/2019 11:18 Results for this AM INDUSTRIAL PAINTER procedure are i n the results section. POC GLUCOSE Routine 06/16/2019 7:25 Results for this AM INDUSTRIAL PAINTER procedure are i n the results section. ESTIMATED GFR Routine 06/16/2019 4:00 Results fo r this AM INDUSTRIAL PAINTER procedure are i n the results section. PHOSPHORUS LEVEL Routine 06/16/2019 4:00 Results for this AM INDUSTRIAL PAINTER procedure are i n the results section. MAGNESIUM LEVEL Routine 06/16/2019 4:00 Results for this AM INDUSTRIAL PAINTER procedure are i n the results section. BASIC METABOLIC PANEL Routine 06/16/2019 4:00 Re sults for this AM INDUSTRIAL PAINTER procedure are i n the results section. POC GLUCOSE Routine 06/15/2019 8:49 Results for this PM INDUSTRIAL PAINTER procedure are i n the results section. POC GLUCOSE Routine 06/15/2019 4:31 Results for this PM INDUSTRIAL PAINTER procedure are i n the results section. FECAL CALPROTECTIN Routine 06/15/2019 4:30 Resul ts for this PM INDUSTRIAL PAINTER procedure are i n the results section. SPIROMETRY, DIFFUSION, Routine 06/15/2019 2:29 Tachycardia R esults for this LUNG VOLUMES PM INDUSTRIAL PAINTER procedure are i n the results section. POC GLUCOSE Routine 06/15/2019 12:27 Results for this PM INDUSTRIAL PAINTER procedure are i n the results section. US CAROTID DUPLEX Routine 06/15/2019 11:31 Result s for this BILATERAL AM INDUSTRIAL PAINTER procedure are i n the results section. POC GLUCOSE Routine 06/15/2019 7:24 Results for this AM INDUSTRIAL PAINTER procedure are i n the results section. ESTIMATED GFR Routine 06/15/2019 3:38 Results fo r this AM INDUSTRIAL PAINTER procedure are i n the results section. PHOSPHORUS LEVEL Routine 06/15/2019 3:38 Results for this AM INDUSTRIAL PAINTER procedure are i n the results section. MAGNESIUM LEVEL Routine 06/15/2019 3:38 Results for this AM INDUSTRIAL PAINTER procedure are i n the results section. BASIC METABOLIC PANEL Routine 06/15/2019 3:38 Re sults for this AM INDUSTRIAL PAINTER procedure are i n the results section. HC COMPLETE BLD COUNT Routine 06/15/2019 3:38 Re sults for this W/AUTO DIFF AM INDUSTRIAL PAINTER procedure are i n the results section. POC GLUCOSE Routine 06/14/2019 9:02 Results for this PM INDUSTRIAL PAINTER procedure are i n the results section. CT HEAD WO CONTRAST STAT 06/14/2019 8:31 Resu lts for this PM INDUSTRIAL PAINTER procedure are i n the results section. POC GLUCOSE Routine 06/14/2019 4:31 Results for this PM INDUSTRIAL PAINTER procedure are i n the results section. POC GLUCOSE Routine 06/14/2019 3:36 Results for this PM INDUSTRIAL PAINTER procedure are i n the results section. POC GLUCOSE Routine 06/14/2019 12:06 Results for this PM INDUSTRIAL PAINTER procedure are i n the results section. POC GLUCOSE Routine 06/14/2019 8:38 Results for this AM INDUSTRIAL PAINTER procedure are i n the results section. GASTROINTESTINAL PANEL Routine 06/14/2019 5:48 R esults for this AM INDUSTRIAL PAINTER procedure are i n the results section. T4, FREE Routine 06/14/2019 5:14 Results for this AM INDUSTRIAL PAINTER procedure are i n the results section. THYROID STIMULATING Routine 06/14/2019 5:14 Resu lts for this HORMONE AM INDUSTRIAL PAINTER procedure are i n the results section. LIPID PANEL Routine 06/14/2019 5:14 Results for this AM INDUSTRIAL PAINTER procedure are i n the results section. HEMOGLOBIN A1C Routine 06/14/2019 5:14 Results f or this AM INDUSTRIAL PAINTER procedure are i n the results section. MANUAL DIFFERENTIAL Routine 06/14/2019 4:59 Resu lts for this AM INDUSTRIAL PAINTER procedure are i n the results section. ESTIMATED GFR Routine 06/14/2019 4:59 Results fo r this AM INDUSTRIAL PAINTER procedure are i n the results section. BASIC METABOLIC PANEL Routine 06/14/2019 4:59 Re sults for this AM INDUSTRIAL PAINTER procedure are i n the results section. CBC WITH PLATELET AND Routine 06/14/2019 4:59 Re sults for this DIFFERENTIAL AM INDUSTRIAL PAINTER procedure are i n the results section. POC GLUCOSE Routine 06/13/2019 9:19 Results for this PM INDUSTRIAL PAINTER procedure are i n the results section. POC GLUCOSE Routine 06/13/2019 4:35 Results for this PM INDUSTRIAL PAINTER procedure are i n the results section. POC GLUCOSE Routine 06/13/2019 11:50 Results for this AM INDUSTRIAL PAINTER procedure are i n the results section. POC GLUCOSE Routine 06/13/2019 8:04 Results for this AM INDUSTRIAL PAINTER procedure are i n the results section. POC GLUCOSE Routine 06/13/2019 8:02 Results for this AM INDUSTRIAL PAINTER procedure are i n the results section. HC COMPLETE BLD COUNT Routine 06/13/2019 5:30 Re sults for this W/AUTO DIFF AM INDUSTRIAL PAINTER procedure are i n the results section. ESTIMATED GFR Routine 06/13/2019 4:00 Results fo r this AM INDUSTRIAL PAINTER procedure are i n the results section. BASIC METABOLIC PANEL Routine 06/13/2019 4:00 Re sults for this AM INDUSTRIAL PAINTER procedure are i n the results section. TROPONIN Timed 06/13/2019 1:36 Results for this AM INDUSTRIAL PAINTER procedure are i n the results section. TROPONIN Timed 06/12/2019 10:55 Results for this PM INDUSTRIAL PAINTER procedure are i n the results section. GASTROINTESTINAL PANEL Routine 06/12/2019 10:05 R esults for this PM INDUSTRIAL PAINTER procedure are i n the results section. INFLUENZA ANTIGEN Routine 06/12/2019 9:15 Result s for this PM INDUSTRIAL PAINTER procedure are i n the results section. XR CHEST 1 VW PORTABLE STAT 06/12/2019 8:55 R esults for this PM INDUSTRIAL PAINTER procedure are i n the results section. ECG ED PRELIMINARY Routine 06/12/2019 7:50 Resul ts for this INTERPRETATION PM INDUSTRIAL PAINTER procedure are in the results section. URINALYSIS SCREEN AND STAT 06/12/2019 7:49 Re sults for this MICROSCOPY, WITH REFLEX PM INDUSTRIAL PAINTER proc edure are in TO CULTURE the results section. ESTIMATED GFR STAT 06/12/2019 7:49 Results fo r this PM INDUSTRIAL PAINTER procedure are i n the results section. PROTHROMBIN TIME WITH STAT 06/12/2019 7:49 Re sults for this INR PM INDUSTRIAL PAINTER procedure are i n the results section. PARTIAL THROMBOPLASTIN STAT 06/12/2019 7:49 R esults for this TIME (PTT) PM INDUSTRIAL PAINTER procedure are i n the results section. B NATRIURETIC PEPTIDE STAT 06/12/2019 7:49 Re sults for this PM INDUSTRIAL PAINTER procedure are i n the results section. TROPONIN STAT 06/12/2019 7:49 Results for this PM INDUSTRIAL PAINTER procedure are i n the results section. COMPREHENSIVE METABOLIC STAT 06/12/2019 7:49 Results for this PANEL PM INDUSTRIAL PAINTER procedure are i n the results section. HC COMPLETE BLD COUNT STAT 06/12/2019 7:49 Re sults for this W/AUTO DIFF PM INDUSTRIAL PAINTER procedure are i n the results section. URINE CULTURE STAT 06/12/2019 7:49 Results fo r this PM INDUSTRIAL PAINTER procedure are i n the results section. ECG 12-LEAD STAT 06/12/2019 7:42 Results for this PM INDUSTRIAL PAINTER procedure are i n the results section. after 01/12/[address] Chest Wo Contrast (12/28/2019 9:29 PM CDT)Only the most recent of2 results within the time period is included. Specimen Narrative Performed At CT CHEST WO CONTRAST [facility] CLINICAL INDICATION: cough TECHNIQUE: Multidetector CT imaging of the chest was performed without intravenous contrast with multiplanar reconstructions. CT imaging was performed with iterative reconstruction technique and/ or automated exposure control to reduce radiation dos e. COMPARISON: 07/11/2019 IMPRESSION: The lack of intravenous contrast partial ly limits evaluation. Lungs and large airways: Small bilateral pleural eff usions. Some groundglass densities are seen of the pulmonary parenc hyma, with interlobular septal thickening, compatible with mild v ascular congestion/edema. No consolidations or p neumothorax. Some debris/aspirate is seen within the distal trachea and origin of the right mainstem bronchus. Left mainstem b ronchus is patent. Heart and pericardium: Heart size is normal. Extensi ve coronary artery calcifications are identified. Small pericardial effus ion. Distal tip of a vascular catheter terminates in the ca voatrial junction. Mediastinum and catherine: No mass or hemat maisha. Lymph nodes: Some prominent mediastinal lymph nodes are seen without adenopathy by size criteria. Vasculature: Unremarkable on this nonc ontrast evaluation. Upper abdomen: Cirrhotic liver. Patient is status po st cholecystectomy. Bones: No acute osseous abnormality. Mild degenerati ve change of the thoracic spine. Soft tissues: Mild anasarca. Some subcutaneous stran ding is seen of the soft tissues anterior to the sternum. Subcutaneous stranding is seen anterior to the sternum in the midline, which may repr esent some subcutaneous bruising for cellulitis. Summary: Mild vascular congestion/edema with smal l bilateral pleural effusions. Some mild anasarca is identified. Subcutaneous strandi ng is seen anterior to the sternum in the midline, which may repr esent some subcutaneous bruising for cellulitis. [facility]-[id number] Procedure Note Hm Interface, Radiology Results Incoming - 12/28/2019 9:[address] CHEST WO CONTRAST CLINICAL INDICATION: cough TECHNIQUE: Multidetector CT imaging of the chest was performed without intravenous contrast with multiplanar reconstructions. CT imaging was performed with iterative reconstruction technique and/or automated exposure control to reduce radiation dos e. COMPARISON: 07/11/2019 IMPRESSION: The lack of intravenous contrast partial ly limits evaluation. Lungs and large airways: Small bilatera l pleural effusions. Some groundglass densities are seen of the pulmonary parenchyma, with interlobular septal thickening, compatible with mild vascular congestion/edema. No consolidations or pneumothorax. Some debris/aspirate is seen within the distal trachea and origin of the right mainstem bronchus. Left mainstem bronchus is patent. Heart and pericardium: Heart size is no rmal. Extensive coronary artery calcifications are identified. Small pericardial effusion. Distal tip of a vascular catheter terminates in the cavoatrial junction. Mediastinum and catherine: No mass or hemato ma. Lymph nodes: Some prominent mediastinal lymph nodes are seen without adenopathy by size criteria. Vasculature: Unremarkable on this nonco ntrast evaluation. Upper abdomen: Cirrhotic liver. Patient is status post cholecystectomy. Bones: No acute osseous abnormality. Mi ld degenerative change of the thoracic spine. Soft tissues: Mild anasarca. Some subcu taneous stranding is seen of the soft tissues anterior to the sternum. Subcutaneous stranding is seen anterior to the sternum in the midline, which may represent some subcutaneous bruising for cellulitis. Summary: Mild vascular congestion/edema with smal l bilateral pleural effusions. Some mild anasarca is identified. Subcut aneous stranding is seen anterior to the sternum in the midline, which may represent some subcutaneous bruising for cellulitis. [facility]-[id number] Performing Organization Address City/State/Zipcode Phone Number [facility] [phone] [place] [address] CT Head Wo Contrast (12/28/2019 9:28 PM CDT)Only the most recent of2 results within the time period is included. Specimen Narrative Performed At EXAM: [facility]: headache TECHNIQUE: Noncontrast enhanced images of the brain we re obtained from the skull base to the vertex. Both soft tissue and bon e reconstruction algorithms were performed. CT scans are performed using radiation dose reduction techniques (iterative reconstruction and/or automated exposure co ntrol). Technical factors are evaluated and adjusted to ensure appropria te moderation of exposure. Automated dose product management specialist nology is applied to adjust radiation exposure while achievi ng a diagnostic quality image. COMPARISON: 06/14/2019. FINDINGS: The wagner-white matter differentiation is preserved and without evidence of acute territorial infarction. 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 Minimal scattered subcortical and deep white matter hy poattenuation, likely reflective of chronic small vesse l ischemic changes. There is no evidence for acute intracranial hemorrhage , mass, mass effect, hydrocephalus, or extra-axial fl uid collection. Orbits are unremarkable. Paranasal sinuses are clear . Mastoid air cells are normally pneumatized. Vascular calcificati ons are noted, most prominent within the bilateral cavernous ICAs. Osseous structures are intact. IMPRESSION: Minimal involutional changes as detailed with no CT ev idence for acute intracranial abnormality. [id number] Procedure Note Interface, Radiology Results Incoming - 12/28/2019 9:37 PM CDT EXAM: CT HEAD WO CONTRAST CLINICAL HISTORY: headache TECHNIQUE: Noncontrast enhanced images o f the brain were obtained from the skull base to the vertex. Both soft tissue and bone reconstruction algorithms were performed. CT scans are performed using radiation d ose reduction techniques (iterative reconstruction and/or automated exposure control). Technical factors are evaluated and adjusted to ensure appropriate moderation of exposure. Automated dose product management specialist nology is applied to adjust radiation exposure while achieving a diagnostic quality image. COMPARISON: 06/14/2019. FINDINGS: The wagner-white matter differentiation is preserved and without evidence of acute territorial infarction. 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 Minimal scattered subcortical and deep w altaf matter hypoattenuation, likely reflective of chronic small vessel ischemic changes. There is no evidence for acute intracran ial hemorrhage, mass, mass effect, hydrocephalus, or extra-axial fluid collection. Orbits are unremarkable. Paranasal sinu ses are clear. Mastoid air cells are normally pneumatized. Vascular calcifications are noted, most prominent within the bilateral cavernous ICAs. Osseous structures are intact. IMPRESSION: Minimal involutional changes as detailed with no CT evidence for acute intracranial abnormality. [id number] Performing Organization Address [facility] Phone Number [facility] [address] [place] [address] XR Chest 1 Vw Portable (12/28/2019 8:55 PM CDT)Only the most recent of2 results within the time period is included. Specimen Narrative Performed At EXAMINATION: XR CHEST 1 VW PORTABLE [facility] CLINICAL HISTORY: sob COMPARISON: 06/12/2019. IMPRESSION: Right central venous catheter terminates over the right atrium. Low lung volumes. Vascular crowding and/or congestion. No focal consolidation. No pleural effusion or pneumothorax. The cardiomediastinal silhouette is norm al. No acute osseous abnormalities. [facility]-[id number] Procedure Note Hm Interface, Radiology Results Incoming - 12/28/2019 8:59 PM CDT EXAMINATION: XR CHEST 1 VW PORTABLE CLINICAL HISTORY: sob COMPARISON: 06/12/2019. IMPRESSION: Right central venous catheter terminates over the right atrium. Low lung volumes. Vascular crowding and/ or congestion. No focal consolidation. No pleural effusion or pneumothorax. The cardiomediastinal silhouette is norm al. No acute osseous abnormalities. [facility]-[id number] Performing Organization Address [facility] Phone Number [facility] [address] [place] [address] ECG ED Preliminary Interpretation - Not an Order (12/28/2019 8:54 PM CDT)Only the most recent of2 resultswithin the time period is included. Narrative Performed At Kelvin Palomino MD 12/30/2019 2:41 AM ECG ED Preliminary Interpretation - Not an Order Performed by: Kelvin Palomino MD Authorized by: Kelvin Palomino MD ECG reviewed by ED Physician in the abse nce of a special crimes investigator: yes Interpretation: Interpretation: abnormal Rate: ECG rate: 81 ECG rate assessment: normal Rhythm: Rhythm: sinus rhythm Conduction: Conduction: abnormal Abnormal conduction: complete RBBB Estimated GFR (12/28/2019 7:16 PM CDT)Only the most recent of37 resultswithin the time period is included. Estimated GFR 17 (A) mL/min/1.73 [facility] Comment: HOSPITAL Catergory Units Interpretation G1 >=90 Normal [...] published in 2014. Specimen Performing Organization Address City/State/Zipcode Phone Number [facility] DEPARTMENT OF PATHOLOGY AND [address] [place] [phone] GENOMIC MEDICINE [address] [address] Troponin (12/28/2019 7:16 PM CDT)Only the most recent of5 resultswithin the time period is included. Troponin 0.016 0.000 - 0.040 [facility] Comment: ng/mL HOSPITAL In patients suspected of [...] decreased by less than 0.020 ng/mL Specimen Blood Performing Organization Address City/State/Zipcode Phone Number [facility] DEPARTMENT OF PATHOLOGY AND [address] [place], [place] [phone] GENOMIC MEDICINE [facility] [address] [place] [address] CBC with platelet and differential (12/28/2019 7:16 PM CDT)Only the most recent of16 resultswithin the time period is included. WBC 5.65 4.50 - 11.00 [facility] k/uL [facility] RBC 3.75 (L) 4.40 - 6.00 [facility] m/uL [facility] HGB 12.7 (L) 14.0 - 18.0 [facility] gdL [facility] HCT 36.6 (L) 41.0 - 51.0 % [facility] MCV 97.6 82.0 - 100.0 [facility] MCH 33.9 27.0 - 34.0 pg [facility] [facility] MCHC 34.7 31.0 - 37.0 [facility] g/dL [facility] RDW - SD 50.0 37.0 - 55.0 fL [facility] MPV 12.9 8.8 - 13.2 fL [facility] Platelet count 152 150 - 400 k/uL [facility] Nucleated RBC 0.00 /100 WBC [facility] Neutrophils 65.7 39.0 - 69.0 % [facility] Lymphocytes 24.6 (L) 25.0 - 45.0 % [facility] Monocytes 5.3 0.0 - 10.0 % [facility] Eosinophils 3.0 0.0 - 5.0 % [facility] Basophils 0.7 0.0 - 1.0 % [facility] Immature granulocytes 0.7Comment: 0.0 - 1.0 % [facility] "Immature HOSPITAL granulocytes" (promyelocytes , myelocytes, metamyelocytes ) Specimen Blood Performing Organization Address City/[facility]/Zipcode Phone Number [facility] DEPARTMENT OF PATHOLOGY AND [address] [place], [place] [address] [facility] [address] [place] [address] B natriuretic peptide (12/28/2019 7:16 PM CDT)Only the most recent of2 results within the time period is included. Pathologist Sig nature BNP 318 (H) 0 - 100 pg/mL [facility] Specimen Blood Performing Organization Address City/[facility]/Zipcode Phone Number [facility] DEPARTMENT OF PATHOLOGY AND [address] [place], [place] [address] [facility] [address] [place] [address] Comprehensive metabolic panel (12/28/2019 7:16 PM CDT)Only the most recent of2 resultswithin the time period is included. Sodium 139 135 - 148 [facility] mEq/L [facility] Potassium 5.3 (H) 3.5 - 5.0 [facility] mEq/L [facility] Chloride 97 (L) 98 - 112 [facility] mEq/L [facility] CO2 27 24 - 31 mEq/L [facility] Anion gap 15@ANIO 7 - 15 mEq/L [facility] BUN 27 (H) 6 - 20 mg/dL [facility] Creatinine 3.84 (H) 0.70 - 1.20 [facility] mg/dL [facility] Glucose 252 (H) 65 - 99 mg/dL [facility] Calcium 8.8 8.3 - 10.2 [facility] mg/dL HOSPITAL Protein 6.9 6.3 - 8.3 [facility] Comment: g/dL HOSPITAL - 4.6-7.0 g/dL 1 week 4.4-7.6 g/dL 7 months-1year 5.1-7.3 g/dL 1-2 years 5.6-7.5 g/dL >3 years 6.0-8.0 g/dL 18-150 6.3-8.3 g/dL Albumin 2.7 (L) 3.5 - 5.0 [facility] g/dL [facility] A/G ratio 0.6 (L) 0.7 - 3.8 [facility] Alkaline phosphatase 175 (H) 40 - 129 U/L [facility] AST 35 10 - 50 U/L [facility] ALT 29 5 - 50 U/L [facility] Total bilirubin 0.3 0.0 - 1.2 [facility] mg/dL HOSPITAL Specimen Blood Performing Organization Address City/[facility]/Zipcode Phone Number [facility] DEPARTMENT OF PATHOLOGY AND [address] [place] [address] [phone] [address] ECG 12 lead (12/28/2019 6:32 PM CDT)Only the most recent of5 resultswithin the time period is included. Pathologist Sig nature Ventricular rate 81 [facility] Atrial rate 81 [facility] W[place] interval 134 [facility] QRSD interval 136 [facility] QT interval 440 [facility] QTC interval 511 [facility] P axis 1 37 [facility] QRS axis 1 114 [facility] T wave axis 5 [facility] EKG impression Normal sinus rhythm-Right bu ndle branch block-Left posterior fascicular block-^^^ Bifascicular block ^^^-Abnormal ECG-In automated comparison with ECG of 28-JUN-2019 09:41,-Left posterior fascicular blo [facility] MUSE ck is now seen- Specimen Narrative Performed At This result has an attachment that is no t available. Performing Organization Address [facility] Phone Number [facility] MUSE [address] [place] [address] POC glucose (07/16/2019 12:29 PM CDT)Only the most recent of156 resultswithin the time period is included. [facility] POC glucose 253 (H) 65 - 99 mg/dL [facility] Comment: HOSPITAL Director Of Math Name: Ney Lao Device ID: [id number] Chartable: [facility] Notified RN Specimen Blood Performing Organization Address City/[facility]/Zipcode Phone Number [facility] DEPARTMENT OF PATHOLOGY AND [address] [place] [address] [phone] [address] Phosphorus level (07/16/2019 4:00 AM CDT)Only the most recent of31 results within the time period is included. Pathologist Sig critical access hospital Phosphorus 4.3 2.4 - 4.5 mg/dL [facility] Specimen Blood Performing Organization Address City/[facility] Phone Number [facility] DEPARTMENT OF PATHOLOGY AND [address] [place] [address] [place] [phone] Basic metabolic panel (07/16/2019 4:00 AM CDT)Only the most recent of35 results within the time period is included. Pathologist Sig critical access hospital Sodium 142 135 - 148 mEq/L [facility] Potassium 4.3 3.5 - 5.0 mEq/L [facility] Chloride 105 98 - 112 mEq/L [facility] CO2 27 24 - 31 mEq/L [facility] Anion gap 10@ANIO 7 - 15 mEq/L [facility] BUN 46 (H) 6 - 20 mg/dL [facility] Creatinine 4.61 (H) 0.70 - 1.20 mg/dL [facility] Glucose 189 (H) 65 - 99 mg/dL [facility] Calcium 8.7 8.3 - 10.2 mg/dL [facility] Specimen Blood Performing Organization Address [facility] Phone Number [facility] DEPARTMENT OF PATHOLOGY AND [address] [place] [address] [place] [address] Magnesium level (07/14/2019 5:10 AM CDT)Only the most recent of29 resultswithin the time period is included. Pathologist Sig critical access hospital Magnesium 1.9 1.6 - 2.6 mg/dL [facility] Specimen Blood Performing Organization Address City/[facility] Phone Number [facility] DEPARTMENT OF PATHOLOGY AND [address] [place] [address] [phone] [address] Total iron binding capacity (07/10/2019 1:40 PM CDT) Pathologist Sig critical access hospital Iron level 72 59 - 158 ug/dL [facility] Iron binding capacity 298 200 - 400 ug/dL [facility] % Saturation 24.2 20.0 - 40.0 % [facility] Specimen Blood Performing Organization Address City/[facility] Phone Number [facility] DEPARTMENT OF PATHOLOGY AND [address] [place], [place] [address] [facility] [address] [place] [address] Ferritin level (07/10/2019 1:40 PM CDT) Pathologist Sig nature Ferritin level 214 30 - 400 ng/mL [facility] AL Specimen Blood Performing Organization Address City/[facility] Phone Number [facility] DEPARTMENT OF PATHOLOGY AND [address] [place], [place] [address] [facility] [address] [place] [address] [place] Modified Barium Swallow (07/09/2019 1:51 PM [...] to Speech Pathology report for further details. [facility]-[id number] Dictated and approved by radiology assistant/fellow: Marin Escamilla M.D. I, Adriana Morales MD, personally reviewed the images and resident's/fellow's findings and agree with the final report. Procedure Note [facility], Radiology Results Incoming - 07/09/2019 3:05 [...] to Speech Pathology report for further details. [facility]-[id number] Dictated and approved by radiology resid ent/fellow: Eugenia Escamilla M.D. I, Adriana Morales MD, personally review ed the images and resident's/fellow's findings and agree with the final report. Performing Organization Address City/State/Zipcode Phone Number [facility] [address] [place] [address] Hepatic function panel (07/08/2019 4:00 AM CDT)Only the most recent of15 resultswithin the time period is included. Albumin 2.4 (L) 3.5 - 5.0 [facility] g/dL [facility] Total bilirubin <0.2 0.0 - 1.2 [facility] mg/dL [facility] Bilirubin direct <0.2 0.0 - 0.3 [facility] mg/dL [facility] Alkaline phosphatase 133 (H) 40 - 129 U/L [facility] Protein 6.9 6.3 - 8.3 [facility] Comment: g/dL HOSPITAL - 4.6-7.0 g/dL 1 week 4.4-7.6 g/dL 7 months-1year 5.1-7.3 g/dL 1-2 years 5.6-7.5 g/dL >3 years 6.0-8.0 g/dL 18-150 6.3-8.3 g/dL ALT 20 5 - 50 U/L [facility] AST 20 10 - 50 U/L [facility] Specimen Plasma specimen Performing Organization Address City/State/Zipcode Phone Number [facility] DEPARTMENT OF PATHOLOGY AND [address] [place], [place] [address] [facility] [address] Hypersensitivity pneumonitis II (07/07/2019 5:30 PM CDT) Pathologist [facility] Aspergillus flavus None Detected None-Detec [facility] REF Comment: tin LAB Testing includes antibodies directed at Aspergillus fl avus, Aspergillus fumigatus #2, Aspergillus fumigatus #3, Saccharomonospora viridis, and Thermoactinomyces dory dus. Aspergillus fumigatus None Detected None-Detec [facility] #2 tin LAB Aspergillus fumigatus None Detected None-Detec [facility] REF #3 tin LAB Saccharomonospora None Detected None-Detec [facility] REF viridis tin LAB Thermoactinomyces None Detected None-Detec [facility] REF candidus Comment: tin LAB Performed by [email or web address], [address] [place] [phone] [email or web address], Roberto Almaguer MD, Lab. Director Thermoactinomyces NOT PERFORMED WITH [facility] saccharii THIS PANEL LAB Specimen Serum Performing Organization Address [facility] Phone Number [facility] [address] [place] [address] [facility] [address] [place] [address] Hypersensitivity pneumonitis I (07/07/2019 5:30 PM CDT) Aspergillus fumigatus None Detected None-Detec [facility] REF #1 tin LAB Aspergillus fumigatus None Detected None-Detec [facility] #6 tin LAB Aureobasidium pullulans None Detected None-Detec [facility] Comment: tin LAB Testing includes antibodies directed at Aureobasidium pullulans, Aspergillus fumigatus #1, Aspergillus fumigatus #6, Mi cropolyspora faeni, [place] Serum and Thermoactinomyces vulgaris #1. [place] serum None Detected None-Detec [facility] tin LAB Micropolyspora faeni None Detected None-Detec [facility] tin LAB Thermoactinomyces None Detected None-Detec [facility] vulgaris #1 Comment: tin LAB Performed by [email or web address], [address] [place], [place] [id number] [email or web address], Roberto Almaguer MD, Lab. Director Specimen Serum Performing Organization Address [facility] Phone Number [facility] [address] [place] [address] [facility] [address] [place] [address] Immunoglobulin G (07/07/2019 4:11 PM CDT) Pathologist Sig nature IgG 1,005 700 - 1,600 mg/dL [facility] Specimen Plasma specimen Performing Organization Address City/[facility] Phone Number [facility] DEPARTMENT OF PATHOLOGY AND [address] [place] [phone] GENOMIC MED[address]INE [address] [address] SS-B antibody (07/07/2019 2:30 PM CDT) Sjogren's SS-B <0.2 0.0 - 0.9 [facility] [place] antibody [facility] SS-B antibody Negative [facility] inter Comment: [facility] SS-B/La antibody is seen in patients with Sjogre n syndrome, but may also be HOSPITAL positive with systemic lupus erythematosus (SLE), and systemic sclerosis. Specimen Serum Performing Organization Address City/State/Zipcode Phone Number [facility] DEPARTMENT OF PATHOLOGY AND [address] [place] [address] [phone] [address] SS-A antibody (07/07/2019 2:30 PM CDT) Sjogren's SS-A <0.2 0.0 - 0.9 [facility] antibody [facility] SS-A antibody Negative [facility] interp Comment: [facility]ESTANT SS-A antibody is sensitive for Sjogren's syndrom e, but may also be positive HOSPITAL with systemic lupus erythematosus (SLE), and systemic sclerosis. Specimen Serum Performing Organization Address City/State/Zipcode Phone Number [facility] DEPARTMENT OF PATHOLOGY AND [address] [place] [phone] Scl-70 antibody (07/07/2019 2:30 PM CDT) Scleroderma SCL-70 <0.2 0.0 - 0.9 [facility] Ab [facility] Scl-70 antibody Negative [facility] interp Comment: [facility] Anti-Scl-70 (topoisomerase I) antibodies are found in patients with HOSPITAL systemic sclerosis (SSc or scleroderma), and have been reported to be predictive of diffuse cutaneous involvement. Anti-Scl- 70 antibodies may also be present in patients with systemic lupus erythe matosus (SLE). Specimen Serum Performing Organization Address City/State/Zipcode Phone Number [facility] DEPARTMENT OF PATHOLOGY AND [address] [place] [phone] Centromere antibody (07/07/2019 2:30 PM CDT) Centromere <0.2 0.0 - 0.9 [facility] Centromere Negative [facility] antibody interp Comment: HOSPITAL Anti-centromere antibodies are found in patients with systemic sclerosis (SSc or scleroderma), especially for those with limite d cutaneous or CREST syndrome. Anti-centromere antibodies may also be found in patients with other rheumatic or connective tissue diseases. Specimen Serum Performing Organization Address City/State/Zipcode Phone Number [facility] DEPARTMENT OF PATHOLOGY AND [address] [place], [place] [address] [facility] [address] [place] [address] DNA Ab screen (07/07/2019 2:30 PM CDT) Pathologist Sig nature DNA Ab screen Not Detected Not-Detected [facility] Specimen Blood Performing Organization Address City/State/Zipcode Phone Number [facility] DEPARTMENT OF PATHOLOGY AND [address] [place], [place] [address] [facility] [address] [place] [address] Anti-neutrophilic cytoplasmic Abs panel (07/07/2019 2:30 PM CDT) Pathologist Sig nature ANCA screen Negative Negative [facility] Specimen Blood Performing Organization Address City/State/Zipcode Phone Number [facility] DEPARTMENT OF PATHOLOGY AND [address] [place] [address] [facility] [address] [place] [address] Cardiac Overread (07/06/2019 6:20 PM CDT) [...] Performing Organization Address City/State/Zipcode Phone Number [facility] [address] [place] [phone] Cv cta coronary arteries w contrast and ffr if needed (07/06/2019 1:32 PM CDT) Specimen Narrative Performed At This result has an attachment that is no t available. [facility] Nuclear Cardiology and Card iac CT [address] [place] [id number] CTA Coronary Arteries R eport Pat.Name: PAOLA KWONG Pat.ID: [id number] .Date: 07/06/2019 Refer.MD: MILTON ELLINGTON MD Exam Time: 1:09:00 PM Study Type:C TA Coronary Arteries Height: 67in Weight: 212lb BSA: 2.07 m2 Age: 6 1965,53Y Sex: MALE BP: 151/83 HR: 54 bpm Nuclear Tech:Samina Beyer, RT(R)(CT) Pat. Stat.:Inpatient Tape Vol: 33.2, CPT - 4: CCTA w Thoracic Aorta (NonCongenital) [id number] Nuclear Event ID:[id number] Order ID: [id number] Reason for Study:Pre-Op CABG, CAD History / Clinical:Coronary artery disease, Diabetes, Hyperlipidemia, Hypertension, S/P PCI 07/2007, Liver cirrhosis/Hepatiti s C Procedures: CT Prospective (phases) Race: C SUMMARY: Technique: IV contrast was administered and sequential 0.[address] cuts were obtained through the chest using the Siemens [employer] moy Force CT scanner. Image post-processing consisting of multiplan ar and 3D reconstructions were performed using the [employer] workstation. Interactive image viewing, volumetric dis play [...] refer to the separate radiology report in [facility] for any additional non-cardiovascular findings. STUDY QUALITY The study quality is good. COMMENTS None. FINDINGS: Signed 07/06/2019 05:59 PM Sreedhar Walton MD Procedure Note Interface, Radiology Results In - 2019 5:59 PM CDT Nuclear Cardiology and Cardiac CT [address] [place] [address] CTA Coronary Arteri es Report Pat.Name: PAOLA KWONG Pat.I D: [id number] St.Date: 07/06/2019 Refer.MD: MILTON ELLINGTON MD Exam Time: 1:09:00 PM Study Type:CTA Coronary Arteries Height: 67in Weigh t: 212lb BSA: 2.07 m2 Age: 4 1965,53Y Sex: MALE BP: 151/83 HR: 54 bpm Nuclear Tech:Samina Beyer RT(R)(CT) Pat. Stat.:Inpatient Tape Vol: 33.2, CPT - 4: CCTA w Thoracic Aorta (NonCo ngenital) [id number] Nuclear Event ID:[id number] Order ID: [id number] Reason for Study:Pre-Op CABG, CAD History / Clinical:Coronary artery disea se, Diabetes, Hyperlipidemia, Hypertension, S/P PCI 07/2007, Liver cirr hosis/Hepatitis C Procedures: CT Prospective (phases) Race: C SUMMARY: Technique: IV contrast was administered and sequential 0.[address] cuts were obtained through the chest using e Siemens Somatom Force CT scanner. Image post-processing consistin g of multiplanar and 3D reconstructions were performed using the [employer] workstation. Interactive image viewing, volumetric display and [...] distal segments with severe >70% stenosis in e proximal segment. The distal LAD beyond [...] to the separate radiology r eport in [facility] for any additional non-cardiovascular findings. STUDY QUALITY The study quality is good. COMMENTS None. FINDINGS: Signed 07/06/2019 05:59 PM Sreedhar Walton MD Performing Organization Address [facility] Phone Number [facility] [address] [place] [address] HIV Ag/Ab combination (07/06/2019 5:20 AM CDT) Pathologist [facility] HIV Ag/Ab combination Non-reactive Non-reactive [facility] Specimen Blood Performing Organization Address [facility] Phone Number [facility] DEPARTMENT OF PATHOLOGY AND [address] [place] [address] [phone] [address] Prothrombin time with INR (07/06/2019 5:20 AM CDT)Only the most recent of3 resultswithin the time period is included. Prothrombin time 14.5 11.5 - 14.5 [facility] INR 1.1 [place] Comment: [facility] International Normalized Ratio (INR) is a [facility] HOSPITAL monitoring tool for patients who are stable on oral anticoagulant therapy. An INR of 2.0-3.0 is suggested for deep vein thrombosis/pulmonary embolism. Specimen Blood Performing Organization Address City/[facility]/Zipcode Phone Number [facility] DEPARTMENT OF PATHOLOGY AND [address] [place] [address] [phone] [address] Rheumatoid factor (07/06/2019 5:20 AM CDT) Pathologist Sig nature Rheumatoid factor <10 0 - 13 IU/mL [facility] Specimen Plasma specimen Performing Organization Address City/[facility]/Zipcode Phone Number [facility] DEPARTMENT OF PATHOLOGY AND [address] [place] [address] C3 complement component (07/06/2019 5:20 AM CDT) Pathologist Sig nature C3 complement 133 90 - 180 mg/dL [facility] Specimen Plasma specimen Performing Organization Address [facility] Phone Number [facility] DEPARTMENT OF PATHOLOGY AND [address] [place] [address] C4 complement component (07/06/2019 5:20 AM CDT) Pathologist Sig nature C4 complement 34 10 - 40 mg/dL [facility] Specimen Plasma specimen Performing Organization Address [facility] Phone Number [facility] DEPARTMENT OF PATHOLOGY AND [address] [place] [address] Transthoracic Echocardiogram Complete, (w Contrast, Strain and 3D if needed) (07/05/2019 9:25 AM CDT) Specimen Narrative Performed At [facility] Echo cardiography Report [address] [place] [address] Pat.Name: PAOLA KWONG Pat.ID: [id number] .Date: 07/05/2019 Refer.MD: MILTON ELLINGTON MD Exam Time: 7:54:00 AM Study Type:R outine Echo Height: 67in Weight: 212lb BSA: 2.07 m2 Ag e: 1965,53Y Sex: MALE BP: 157/71 Sonogrphr: Audrey Bella RDCS, RVSPat. Stat.:Inpatien t Room: [facility] Study S tatus:Final Echo Event ID:[id number] Order ID: [id number] Reason for Study:Chest pain, suspected c ardiac etiology History / Clinical:Chest Pain, Diabetes, Hyperlipidemia, Hypertension, Cirrhosis, ID, Infectious Viral Hepatiti s Procedures: 2D Echo, [...] PA systolic pressure. MEASUREMENTS: 2D Parasternal Long [place] Ao An 2 cm LVPWd 1.5 cm [...] 2019 10:49 AM CDT Echocardiography Report [address] [place] [address] Pat.Name: PAOLA KWONG Pat.I D: [id number] .Date: 07/05/2019 Refer.MD: MILTON ELLINGTON MD Exam Time: 7:54:00 AM Study Type:Routine Echo Height: 67in Weigh t: 212lb BSA: 2.07 m2 Age: 6 1965,53Y Sex: MALE BP: 157/71 Sonogrphr: Audrey Bella RDCS, RVSPat. Stat.:Inpatient Room: [facility] Study Status:Final Echo Event ID:[id number] Order ID: [id number] Reason for Study:Chest pain, suspected c ardiac etiology History / Clinical:Chest Pain, Diabetes, Hyperlipidemia, Hypertension, Cirrhosis, ID, Infectious Viral Hepatiti s Procedures: 2D Echo, [...] PA systolic pressure. MEASUREMENTS: 2D Parasternal Long [place] Ao An 2 cm LVPW d 1.5 [...] Jo Ann Kraus MD Performing Organization Address City/[facility] Phone Number [facility] [address] [place] [address] Vancomycin level, random (07/05/2019 5:14 AM CDT)Only the most recent of8 resultswithin the time period is included. Pathologist Sig nature Vancomycin, random 11.9 ug/mL [facility] ITAL Specimen Serum Performing Organization Address [facility] Phone Number [facility] DEPARTMENT OF PATHOLOGY AND [address] [place], [place] [address] GENOMIC MEDICINE [facility] [address] [place] [address] [facility] NEED PHYS SKILL,DX OR RX (07/02/2019 2:59 PM INDUSTRIAL PAINTER) Narrative Performed At Estela Padilla RN 07/02/2019 3:03 PM Midline Date/Time: 07/02/2019 2:59 PM Performed by: Kaykay Rain Authorized by: Milton Ellington Sr., MD Consent: Consent obtained: Verbal Consent given by: Patient Risks discussed: arterial puncture, incorrect place ment, nerve damage, infection, bleeding, superficial thrombu s and deep vein thrombus Alternatives discussed: No treatment, delayed cathy atment and alternative treatment [place] protocol: Procedure explained and questions ans wered [...] 4.5. Indication: Poor venous access and known travel registered nurse pacu IV therapy Location: Right basilic Device Type: Non-valved Catheter size: 4 Fr Catheter to vein ratio: 31% Line Characteristics: Catheter Brand: BioFlo Midline External Catheter Length (cm): 0 Internal Catheter Length (cm): 10 Total Catheter Length (cm): 10 Catheter Lot Number: [id number] Catheter Expiration Date: 12/26/2020 Procedure Details: Landmarks [...] complications Vancomycin level, trough (07/01/2019 2:30 PM INDUSTRIAL PAINTER) Vancomycin, 23.0 (HH) 10.0 - 20.0 [facility] trough Comment: ug/mL [facility] Therapeutic Ranges: Peak 30.0 - 40.0 ug/mL Trough 10.0 - 20.0 ug/mL Specimen Serum Performing Organization Address City/[facility] Phone Number [facility] DEPARTMENT OF PATHOLOGY AND [address] [place] [address] [phone] GENOMIC MEDICINE [address] [address] Surgical pathology request (06/30/2019 11:36 AM INDUSTRIAL PAINTER) [facility] DEPARTMENT OF PATHOLOGY AND GENOMIC MEDICINE Surgical pathology See link below [facility] DEPARTMENT OF report for PDF Lab PATHOLOGY AND Report GENOMIC MEDICINE Result status This is Final [facility] DEPARTMENT OF Report for PATHOLOGY AND [id number] GENOMIC MEDICINE Specimen Performing Organization Address City/[facility] Phone Number [facility] DEPARTMENT OF PATHOLOGY AND [address] [place] [address] [phone] GENOMIC MEDICINE IR Transjugular Liver Biopsy (06/30/2019 9:39 AM INDUSTRIAL PAINTER) Specimen Narrative Performed At Performing Radiologist CONI Lauren MD Assistants None Anesthesia Type Moderate sedation was administered by the procedure nu rse and monitored by the procedure physician for a jtfl-lp-ekpa sedation time of 20 minutes. Lidocaine 1% [...] atrial pressure measures were then obtained. A 5-Paraguayan multipurpose catheter was advanced over the g uidewire and used to select the right hepatic vein. A CO2 right hepatic venogram was performed. Pressure measure ments were also obtained in both the free and wedge positions. The 9-F rench vascular sheath was then advanced into the right hepatic vein. The transjugular liver biopsy system was advanced through the 9-Paraguayan vascular sheath, and multiple 18-gauge core liver biopsy specimens were obtained and submitted to pathology. Th e transjugular liver biopsy system and 9-Paraguayan vascular sheath were then removed from the [...] hepatic: 11 mmHg Wedge hepatic: 15 mmHg [facility]-[id number] Procedure Note Interface, Radiology Results Incoming - 06/30/2019 4:50 PM INDUSTRIAL PAINTER Performing Radiologist Vamshi Lauren MD Assistants None Anesthesia Type Moderate sedation was administered by th e procedure nurse and monitored by the procedure physician for a mwdu-pi-yuih sedation time of 20 minutes. Lidocaine 1% [...] into the inferior vena cava. A long 9-Paraguayan vascular sheath was then placed,and adva nced over the guidewire into the right atrium. Right atrial pressure measures were then obtained. A 5-Paraguayan multipurpose catheter was advanced over the guidewire and used to select the right hepatic vein. A CO2 right hepatic venogram was performed. Pr essure measurements were also obtained in both the free and wedge positions. The 9-Paraguayan vascular sheath was then advanced into the right hepatic vein. The transjugular liver biopsy system was advanced through the 9-Paraguayan vascular sheath, and multiple 18-gauge core liver biopsy specimens were obtained and submitted to pathology. The transjugular liver biopsy system and 9-Paraguayan vascular sheath were then removed from the [...] hepatic: 11 mmHg Wedge hepatic: 15 mmHg [facility]-[id number] Performing Organization Address City/State/Zipcode Phone Number CONI LAND [address] [place] [address] IR Tunneled Dialysis Catheter Placement (06/23/2019 10:03 AM INDUSTRIAL PAINTER) Specimen Narrative Performed At PERFORMING RADIOLOGIST: CONI Petersen MD ASSISTANTS: None. ANESTHESIA TYPE: Moderate sedation was administered by the procedure nu rse and monitored by the procedure physician for a total xhte-xr-cdly se dation time of 8 minutes. Lidocaine [...] PLAN: -Catheter is ready for immediate use. [facility]-[id number] Procedure Note Interface, Radiology Results Incoming - 06/24/2019 7:31 AM INDUSTRIAL PAINTER PERFORMING RADIOLOGIST: Will Petersen MD ASSISTANTS: None. ANESTHESIA TYPE: Moderate sedation was administered by [facility] procedure nurse and monitored by the procedure physician for a total uhdq-ls-pcmv sedation time of 8 minutes. Lidocaine 1% [...] PLAN: -Catheter is ready for immediate use. [facility]-[id number] Performing Organization Address City/State/Zipcode Phone Number [facility] [address] [place] [address] XR Abdomen 1 Vw Portable (06/21/2019 4:08 PM INDUSTRIAL PAINTER) Specimen Narrative Performed At EXAMINATION: XR ABDOMEN [...] are unremarkable. The lung bases are clear. [facility]-[id number] Procedure Note Interface, Radiology Results Incoming - 06/21/2019 6:05 PM INDUSTRIAL PAINTER EXAMINATION: XR ABDOMEN 1 VW PORTABLE CLINICAL [...] are unremarkable. The lung bases are clear. [id number] Performing Organization Address City/State/Zipcode Phone Number [facility] [address] [place] [address] Aerobic culture (06/20/2019 5:32 PM INDUSTRIAL PAINTER) Aerobic culture Klebsiella pneumoniae GONZALEZ BRAUNIS T isolate [facility] The performance characteristics of this assay on this isolate were validated by the Microbiology Laboratory at [facility]. This source has not been approve [...] otherwise specified Aerobic culture Enterococcus faecalis GONZALEZ WHITE T isolate Recovered in Broth only: HOSPITAL The performance characteristics of this assay on this isolate were validated by the Microbiology Laboratory at [facility]. This source has not been approve [...] were validated by the Microbiology Laboratory at [facility]. This source has not been approved by the U.S. Food and Drug Administration. The results are not intended to be used as the sole means for clinical win gnosis or patient management. The Microbiology Laboratory is authorized under the clinical Laboratory Improvement Amendments of 1988 (CLIA-88) to perform high complexit y testing. Aerobic culture Klebsiella pneumoniae GONZALEZ BRAUNIS T isolate [facility] The performance characteristics of this assay on this isolate were validated by the Microbiology Laboratory at [facility]. This source has not been approve d by the U.S. Food and Drug Administration. The results are n ot intended to be used as the sole means for clinical win gnosis or patient management. The Microbiology Laboratory i s authorized under the clinical Laboratory Improvement Amendments of 1988 (CLIA-88) to perform high complexit y testing. (A) Aerobic culture Citrobacter freundii complex [facility] isolate [facility] The performance characteristics of this assay on this isolate were validated by the Microbiology Laboratory at [facility]. This source has not been approve [...] 16 /8 mcg/mL: Resistant Klebsiella pneumoniae Amikacin CYRS <=4 mcg/mL : Susceptible Klebsiella pneumoniae Aztreonam [...] CRYS 1 mcg/mL: Susceptible Enterococcus faecalis Tigecycline CRSY <=0.125 mc g/mL: Susceptible Klebsiella pneumoniae Ampicillin [...] mcg/mL: S usceptible complex Performing Organization Address City/State/[facility] Phone Number [facility] DEPARTMENT OF PATHOLOGY AND [address] [place] [phone] [facility] MEDICINE [address] [address] Gram stain (06/20/2019 5:32 PM INDUSTRIAL PAINTER) Gram stain isolate Rare WBC's [facility] Many Gram negative rods HOSPITAL Rare Gram positive cocci in pairs Comment: Specimen Information Specimen Source: Drainage Specimen Site: Not otherwise specified Specimen Drainage - Not otherwise specified Performing Organization Address City/State/[facility] Phone Number [facility] DEPARTMENT OF PATHOLOGY AND [address] [place] [address] [place] [phone] Protein, urine, random (06/19/2019 7:06 PM INDUSTRIAL PAINTER) Pathologist Sig nature Protein, urine random 584 mg/dL [facility] Specimen Urine Performing Organization Address City/[facility] Phone Number [facility] DEPARTMENT OF PATHOLOGY AND [address] [place] [address] [place] [phone] Creatinine level, urine, random (06/19/2019 7:06 PM INDUSTRIAL PAINTER) Pathologist Sig nature Creatinine, urine, 99 mg/dL [facility] Specimen Urine Performing Organization Address [facility] Phone Number [facility] DEPARTMENT OF PATHOLOGY AND [address] [place] [address] [place] [address] Anti smooth muscle Ab screen (06/19/2019 12:00 AM INDUSTRIAL PAINTER) Pathologist Sig nature Anti smooth muscle Not Detected Not-Detected [facility] Ab [facility] Specimen Blood Performing Organization Address [facility] Phone Number [facility] DEPARTMENT OF PATHOLOGY AND [address] [place] [address] [place] [address] Anti mitochondria screen (06/19/2019 12:00 AM INDUSTRIAL PAINTER) Anti mitochondria Not Detected Not-Detected [facility] Specimen Blood Performing Organization Address [facility] Phone Number [facility] DEPARTMENT OF PATHOLOGY AND [address] [place] [address] [place] [phone] Urine culture (06/18/2019 7:24 AM INDUSTRIAL PAINTER)Only the most recent of2 resultswithin the time period is included. Urine culture No growth after 24 hours [facility] Comment: HOSPITAL Specimen Information Specimen Source: Urine Specimen Site: Clean catch Specimen Urine Performing Organization Address City/[facility] Phone Number [facility] DEPARTMENT OF PATHOLOGY AND [address] [place] [address] [place] [phone] Urinalysis screen and microscopy, with reflex to culture (06/18/2019 5:30 AM INDUSTRIAL PAINTER)Only the most recent of2 resultswithin the time period is included. Pathologist Sig nature Specimen site Clean catch [facility] Color, UA Yellow [facility] Appearance, UA Cloudy [facility] Specific gravity, 1.011 1.001 - 1.[address] [facility] pH, UA 5.0 5.0 - 8.5 [facility] Protein, UA 3+ (A) Negative [facility] Glucose, UA 1+ (A) Negative [facility] Ketones, UA Negative Negative [facility] Bilirubin, UA Negative Negative [facility] Blood, UA Small (A) Negative [facility] Nitrite, UA Negative Negative [facility] Urobilinogen, UA <2.0 <2.0 [facility] Leukocyte esterase, Negative Negative [facility] WBC, UA 14 (H) 0 - 1 /HPF [facility] RBC, UA 1 0 - 5 /HPF [facility] Bacteria, UA Few None seen [facility] WBC clumps, UA Few (A) [facility] Yeast, UA None seen [facility] Yeast with None seen [facility] pseudohyphae, HOSPITAL Amorphous crystals Few [facility] Granular casts, UA 1 0 - 1 /LPF [facility] Specimen Urine Performing Organization Address City/State/Zipcode Phone Number [facility] DEPARTMENT OF PATHOLOGY AND [address] [place], [place] [phone] [address] [address] Hepatitis B surface Ab, quantitative (06/18/2019 5:00 AM INDUSTRIAL PAINTER) Hepatitis B surface <3.10 IU/L [facility] Ab Comment: The anti-HBs [...] healthcare workers refer to MMWR Mar/Vol. 62(No. 10);-19. Reference Interval: anti-HBs 9.99 IU/L or less ....... Negative 10.00 IU/L or greater .... Positive Results greater than 1,000.00 IU/L are reported as gre ater than 1,000.00 IU/L. This assay should not be used for blood donor screenin g, associated re-entry protocols, or for screening Human Cell, Tissues and Cellular and Tissue-Based Products (HCT/P) . Performed by [email or web address], [address] [place] [id number] [email or web address], Roberto Almaguer MD, Lab. Director Specimen Serum Performing Organization Address [facility] Phone Number [facility] [address] [place] [phone] [facility] [address] [place] [address] Ammonia level (06/18/2019 5:00 AM INDUSTRIAL PAINTER) Pathologist Sig [facility] Ammonia 63 (H) 16 - 60 umol/L [facility] Specimen Blood Performing Organization Address [facility] Phone Number [facility] DEPARTMENT OF PATHOLOGY AND [address] [place] [address] [place] [phone] Hepatitis C antibody (06/18/2019 4:00 AM INDUSTRIAL PAINTER) Pathologist [facility] Hepatitis C Ab Non-reactive Non-reactive [facility] Specimen Serum Performing Organization Address [facility] Phone Number [facility] DEPARTMENT OF PATHOLOGY AND [address] [place] [address] [phone] [address] Alpha-1 antitrypsin level (06/18/2019 4:00 AM INDUSTRIAL PAINTER) Pathologist Sig critical [facility] hospital Alpha-1 antitrypsin 166 90 - 200 mg/dL [facility] Specimen Plasma specimen Performing Organization Address [facility] Phone Number [facility] DEPARTMENT OF PATHOLOGY AND [address] [place] [address] [phone] [address] Hepatitis A antibody IgM (06/18/2019 4:00 AM INDUSTRIAL PAINTER) Pathologist Sig nature Hepatitis A IgM Non-reactive Non-reactive [facility] Specimen Serum Performing Organization Address City/[facility] Phone Number [facility] DEPARTMENT OF PATHOLOGY AND [address] [place] [address] [place] [phone] Ceruloplasmin level (06/18/2019 4:00 AM INDUSTRIAL PAINTER) Pathologist Sig nature Ceruloplasmin 22 15 - 30 mg/dL [facility] Specimen Plasma specimen Performing Organization Address City/[facility] Phone Number [facility] DEPARTMENT OF PATHOLOGY AND [address] [place] [address] [place] [address] Alpha fetoprotein (06/18/2019 4:00 AM INDUSTRIAL PAINTER) Alpha fetoprotein 1.6 0.0 - 8.3 [place] Comment: ng/mL PROT[employer] The Lexis 8000 AFP immunoassay was used. HOSPITAL Results obtained with different assay methods or kits should not be used interchangeably and may be differen t. Specimen Serum Performing Organization Address [facility] Phone Number [facility] DEPARTMENT OF PATHOLOGY AND [address] [place] [address] [place] [phone] Hepatitis B core antibody IgM (06/18/2019 4:00 AM INDUSTRIAL PAINTER) Pathologist Sig nature Hepatitis B core Non-reactive Non-reactive [facility] IgM HOSPITAL Specimen Serum Performing Organization Address [facility] Phone Number [facility] DEPARTMENT OF PATHOLOGY AND [address] [place] [address] [place] [phone] Hepatitis B core antibody total (06/18/2019 4:00 AM INDUSTRIAL PAINTER) Pathologist Sig nature Hepatitis B core Non-reactive Non-reactive [facility] total Ab HOSPITAL Specimen Serum Performing Organization Address City/[facility] Phone Number [facility] DEPARTMENT OF PATHOLOGY AND [address] [place] [address] [place] [phone] Hepatitis B surface antibody (06/18/2019 4:00 AM INDUSTRIAL PAINTER) Pathologist Sig nature Hepatitis B surface Non-reactive Non-reactive [facility] Ab HOSPITAL Specimen Serum Performing Organization Address City/[facility] Phone Number [facility] DEPARTMENT OF PATHOLOGY AND [address] [place] [address] [place] [address] Hepatitis B surface antigen (06/18/2019 4:00 AM INDUSTRIAL PAINTER) Pathologist Sig nature Hepatitis B surface Non-reactive Non-reactive [facility] Specimen Serum Performing Organization Address [facility] Phone Number [facility] DEPARTMENT OF PATHOLOGY AND [address] [place] [phone] ANNE (06/18/2019 4:00 AM INDUSTRIAL PAINTER) ANNE screen Negative Negative [facility] Comment: HOSPITAL Test performed using [employer]OVA Poshmarke DAPI ANNE kit (Indirect Immunofluorescence Assay) for Anti-Nuclear Antibody on AjubeoALucent Sky 160 Analyzer. Specimen Blood Performing Organization Address [facility] Phone Number [facility] DEPARTMENT OF PATHOLOGY AND [address] [place] [phone] GGT (06/18/2019 4:00 AM INDUSTRIAL PAINTER) Pathologist Sig nature GGT 80 (H) 0 - 59 U/L [facility] Specimen Plasma specimen Performing Organization Address [facility] Phone Number [facility] DEPARTMENT OF PATHOLOGY AND [address] [place], [place] [address] [address] [place] [address] [place] Abdomen Complete (06/17/2019 4:48 PM INDUSTRIAL PAINTER) Specimen Narrative Performed At EXAM: US ABDOMEN COMPLETE [facility] CLINICAL DATA: 53 years Male [...] participate in the care of your patient. [facility]-[id number] Procedure Note Hm Interface, Radiology Results Incoming - 06/17/2019 4:59 PM INDUSTRIAL PAINTER EXAM: US ABDOMEN COMPLETE CLINICAL DATA: 53 [...] participate in the care of your patient. [facility]-[id number] Performing Organization Address City/State/Zipcode Phone Number [facility] [address] [place] [address] [place] Abdominal Doppler (06/17/2019 4:48 PM INDUSTRIAL PAINTER) Specimen Narrative Performed At EXAMINATION: US [facility]AL [facility]ER [facility] CLINICAL HISTORY: rule out portal [...] and vein are identified and are patent. [facility]-[id number] Procedure Note Interface, Radiology Results Incoming - 06/17/2019 4:55 PM INDUSTRIAL PAINTER EXAMINATION: US ABDOMINAL DOPPLER CLINICAL HISTORY: rule [...] and vein are identified and are patent. [facility]-[id number] Performing Organization Address [facility]/[employer] Phone Number [facility] [address] [place] [address] [place] Renal (06/17/2019 2:26 PM INDUSTRIAL PAINTER) Specimen Narrative Performed At EXAMINATION: US RENAL RADIANT CLINICAL HISTORY: Flank pain stone d isease suspected COMPARISON: None. IMPRESSION: The right kidney measures 12 cm in jeanine gth. The left kidney measures 13.9 cm in le ngth. There is no renal mass, stone, cyst, or hydronephrosis . Echogenicity is normal. The urinary bladder is unremarkable. [facility]-[id number] Procedure Note Interface, Radiology Results Incoming - 06/17/2019 2:32 PM INDUSTRIAL PAINTER EXAMINATION: US RENAL CLINICAL HISTORY: Flank pain stone dis ease suspected COMPARISON: None. IMPRESSION: The right kidney measures 12 cm in juan ramon th. The left kidney measures 13.9 cm in jeanine gth. There is no renal mass, stone, cyst, or hydronephrosis. Echogenicity is normal. The urinary bladder is unremarkable. [facility]-[id number] Performing Organization Address [facility]/[employer] Phone Number [facility] [phone] [place] [address] Celiac disease reflexive cascade (06/17/2019 4:53 AM INDUSTRIAL PAINTER) IgA 449 (H) 68 - 408 mg/dL [facility] Comment: Total IgA is within or higher than established ranges. Tissue Transglutaminase, IgA to follow. REFERENCE INTERVAL: Immunoglobulin A Access complete set of age- and/or gender-specific ref erence intervals for this test in the [facility] Laboratory Test Di rectory ([facility]). Performed by [email or web address], [address] [place] [phone] [email or web address], Roberto Almaguer MD, Lab. Director Specimen Serum Narrative Performed At [facility] called with reae back to [address] at 06/16/2019 [facility] 08:04 by NEFTALY. Performing Organization Address City/State/Zipcode Phone Number [facility] [address] [place] [address] [facility] [address] [place] [address] Tissue transglutaminase Ab, IgA (06/17/2019 4:53 AM INDUSTRIAL PAINTER) Tissue 1 0 - 3 U/mL [facility] transglutaminase Ab, Comment: LAB IgA [...] sitive predictive value for disease. Performed by [email or web address], [address] [place] [phone] [email or web address], Roberto Almaguer MD, Lab. Director Specimen Serum Narrative Performed At [facility] called with reae back to [address] at 06/16/2019 [facility] 08:04 by NEFTALY. Performing Organization Address City/State/Zipcode Phone Number [facility] [address] [place] [address] [facility] [address] [place] [address] Fecal calprotectin (06/15/2019 4:30 PM INDUSTRIAL PAINTER) Pathologist Sig nature Fecal calprotectin 57.64 <15.6-120mg/kg [facility] Specimen Blood Performing Organization Address City/[facility]/Zipcode Phone Number [facility] DEPARTMENT OF PATHOLOGY AND [address] [place] [address] [phone] GENOMIC MEDICINE [facility] [address] [place] [address] Spirometry, diffusion, lung volumes (06/15/2019 2:29 PM INDUSTRIAL PAINTER) Pathologist Sig [facility] FEV1 Pre 2.23 2.81 - 4.22 L [...] available. Performing Organization Address City/State/Zipcode Phone Number [facility] [address] [place] [address] [place] carotid duplex (06/15/2019 11:31 AM INDUSTRIAL PAINTER) Specimen Narrative Performed At [facility] Carotid A rtery Duplex Report [address] [place] [address] For senior quality assurance specialist purposes, the categorization of the degree of the stenosis of this exam is based on criteria described i n the IAC carotid stenosis grading white paper( www.intersocietal.org/Va scular) and Thanh Nava., Derrick Fountain., et al. Carotid artery stenosis: wagner-scale and Doppler US diagnosis-- Society of Radiologists in Ultrasound Consensus Conference. Radio logy. 2002; 229(2):340-6. Pat.Name: PAOLA KWONG Rebecca.ID: [id number]Date: 06/15/2019 Refer.MD: MILTON ELLINGTON MD Exam Time: 11:04:00 AM Study Type:Ca rotid Height: 67in Weight: 212lb BSA: 2.07 m2 Ag e: 1965,53Y Sex: MALE BP: 116/68 Sonogrphr: Suad Greco, RDCS, RVT Pat. Stat.:Inpatient Room: [address] ol: ED, CPT - 4: 28020 Echo Deysi nt ID:[id number] Order ID: [id number] Reason for Study:Pre-op evaluation History / Clinical:Smoker, CAD, S/p ID, DM, HTN, HLD, Liver cirrhosis, Chest pain, [...] Radiology Results In - 2019 8:06 PM [facility] Vascular Ultrasound Laboratory Carotid Artery Dupl ex Report [address] [place] [address] For senior quality assurance specialist purposes, the sarah gorization of the degree of the stenosis of this exam is based on criteria described in the IAC carotid stenosis grading white paper( www.intersocietal.org/Vascular) and Edward Nava, Herbie Fountain, et al. Carotid artery stenosis: wagner-scale and Doppler US diagnosis--Society of Radiologists in Ultrasound Consensus Conference. Radiology. 2003 Feb; 229(2):340-6. Pat.Name: PAOLA KWONG Pat.I D: [id number] St.Date: 06/15/2019 Refer.MD: MILTON ELLINGTON MD Exam Time: 11:04:00 AM Study Type:Carotid Height: 67in Weigh t: 212lb BSA: 2.07 m2 Age: 6 1965,53Y Sex: MALE BP: 116/68 Sonogrphr: Suad Greco RDCS, RVT Pat. Stat.:Inpatient Room: [address] Vol: ED, CPT - 4: 09483 Echo Event ID:[id number] Order ID: [id number] Reason for Study:Pre-op evaluation History / Clinical:Smoker, CAD, S/p ID, DM, HTN, HLD, Liver cirrhosis, Chest pain, [...] Organization Address City/State/Zipcode Phone Number [facility] [address] [place] [address] Gastrointestinal panel (06/14/2019 5:48 AM INDUSTRIAL PAINTER)Only the most recent of2 results within the time period is included. Pathologist [facility] Gastrointestinal panel Negative for all pathogens tested: [place] Negative for Salmonella [facility] Negative for Campylobacter [facility] Negative for Diarrheagenic E coli/Shigella Negative [...] Specimen Stool - Nonpreserved Performing Organization Address [facility] Phone Number [facility] DEPARTMENT OF PATHOLOGY AND [address] [place] [address] [place] [address] Thyroid stimulating hormone (06/14/2019 5:14 AM INDUSTRIAL PAINTER) Pathologist Sig nature TSH 1.95 0.27 - 4.20 uIU/mL [facility] ITAL Specimen Plasma specimen Performing Organization Address City/[facility] Phone Number [facility] DEPARTMENT OF PATHOLOGY AND [address] [place] [address] [place] [address] T4, free (06/14/2019 5:14 AM INDUSTRIAL PAINTER) Pathologist Sig nature T4, free 0.8 (L) 0.9 - 1.7 ng/dL [facility] L Specimen Plasma specimen Performing Organization Address [facility] Phone Number [facility] DEPARTMENT OF PATHOLOGY AND [address] [place] [address] [place] [address] Hemoglobin A1c (06/14/2019 5:14 AM INDUSTRIAL PAINTER) Hemoglobin A1C 12.6 (H) 4.0 - 5.6 % [facility] Comment: HOSPITAL HbA1c cutoffs for [...] 1 diabetes. Specimen Blood Performing Organization Address City/[facility] Phone Number [facility] DEPARTMENT OF PATHOLOGY AND [address] [place] [phone] Lipid panel (06/14/2019 5:14 AM INDUSTRIAL PAINTER) Cholesterol 177 <200 mg/dL [facility] Triglycerides 407 (H) <150 mg/dL [facility] HDL cholesterol 32 (L) >40 mg/dL [facility] LDL cholesterol 104 (H)Comment: <100 mg/dL [place] Result obtained by [facility] direct [facility] measurement [facility] Comment: [facility] Total Cholesterol (mg/dL) HOSPIT [facility] <200 Desirable [...] mg/dL) Specimen Plasma specimen Performing Organization Address City/[facility] Phone Number [facility] DEPARTMENT OF PATHOLOGY AND [address] [place] [address] [phone] GENOMIC MEDICINE [address] [address] Manual differential (06/14/2019 4:59 AM INDUSTRIAL PAINTER) Manual differential PERFORMED [facility] Neutrophils 53.0 39.0 - 69.0 % [facility] Lymphocytes 36.0 25.0 - 45.0 % [facility] Monocytes 6.0 0.0 - 10.0 % [facility] Eosinophils 4.0 0.0 - 5.0 % [facility] Basophils 1.0 0.0 - 1.0 % [facility] Metamyelocytes 0 % [facility] Promyelocytes 0 % [facility] Platelet slide review Rebekah adequate [facility] Anisocytosis Moderate [facility] Polychromasia Moderate [facility] Ovalocytes Moderate [facility] Specimen Performing Organization Address City/[facility] Phone Number [facility] DEPARTMENT OF PATHOLOGY AND [address] [place] [phone] [facility] [address] [place] [address] Influenza antigen (06/12/2019 9:15 PM INDUSTRIAL PAINTER) Influenza antigen Negative for Influenza A/B antigen. [facility] Comment: HOSPITAL Specimen Information Specimen Source: Nares Specimen Site: Right Specimen Nares - Right Performing Organization Address City/[facility] Phone Number [facility] DEPARTMENT OF PATHOLOGY AND [address] [place] [address] [phone] [address] Partial thromboplastin time, activated (06/12/2019 7:49 PM INDUSTRIAL PAINTER) PTT 28.1 23.0 - 36.0 [facility] Comment: [facility] PTT therapeutic range for unfractionated heparin is 61.0-112.0 seconds which corresponds to Anti-Xa 0.3-0.7 U/ml. Specimen Blood Performing Organization Address City/[facility] Phone Number [facility] DEPARTMENT OF PATHOLOGY AND [address] [place] [address] [phone] [address] after 01/12/2019 Insurance Payer Benefit Plan / Subscriber ID Effective Dates Phone Addre ss Type Group [employer] [facility] xxxxxxxxxxxx 2019-[employer] CHOICE EXCHANGE EXCHANGE t MARKET[employer]ACE Advance Directives For more information, please contact: [phone] Type Date Recorded Patient Superintendent Track Explanati on Advance Directives, Living 03/20/2018 10:24 PM Will and Medical Power of Agronomy Advisor Code Status Date Activated Date Inactivated Comments [...]
--- OUTSIDE RECORDS SUMMARY | 2020-01-13 16:14 | XMS REPORT | Summary of Care ---
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 [address] [place] [address] Exposure to Medicine - [facility], Adc Fam Pob I SARS-associated [address] [facility] coronaviru s ([address] Drive Dx) [place] [address] Allergies Active Allergy Reactions Severity Noted Date Comments Morphine Hives, Itching 06/25/2013 Hydrocodone-Acetaminophen Hives, Itching 06/25/2013 documented as of this encounter (statuses as of 01/04/2020) Medications Medication Sig Dispensed Refills Start Date End Date Status TRAMADOL 50 mg tablet TAKE ONE TABLET 120 tablet 0 08/23/2016 Active BY MOUTH EVERY 6 HOURS NEEDED FOR PAIN (SCALE 4-6) CITALOPRAM 20 mg tablet TAKE 1 TABLET BY 30 tablet 3 7 Active MOUTH EVERY DAY. ATENOLOL 50 mg tablet [...] skin 2 70/30 SC) (two) times daily. lisinopril 10 mg tablet Take 10 mg by 0 Active mouth daily. simvastatin 40 mg Take 40 mg [...] 0 Active 0.004 % ophthalmic bedtime. solution nitroglycerin 0.[address] 1 tablet 1 Bottle 1 01/04/2020 Active sublingual under the tongue tabletIndications: every 5 (five) Coronary artery disease minutes as involving [place] needed for Chest coronary artery of pain. [place] heart without angina pectoris documented as of this encounter (statuses as of 01/04/2020) Active Problems Problem Noted Date Seizures 05/26/2019 History of CVA (cerebrovascular accident) 05/26/2019 History of MN (myocardial infarction) 05/26/2019 Encounter for screening colonoscopy 05/26/2019 Coronary artery disease involving [place] coronary tho ry of [place] heart 05/26/2019 without angina pectoris Cirrhosis of [...] as of this encounter (statuses as of 01/04/2020) Immunizations Name Administration Dates Next Due TDAP [...] have you been in contact with Yes 01/04/2020 11:51 AM CDT someone who was confirmed or suspected to have Coronavirus / COVID-19? documented as of this encounter Last Filed Vital Signs Not on filedocumented in this encounter Nursing Notes Brian Sales MA - 01/04/2020 11:40 AM CDTAlneal Kwong is a 54 year old male here for COVID Screening with a Nasopharyngeal Swab All droplet and contact precautions taken with appropriate PPE worn while interacting with patient. ? Goggles ? N95 Mask ? Gloves ? Gown RR Pulse 68 Ox 98% Patient educated on plan of care for visit, swabbing technique, risks and benefits of test and length of time to receive results. Verbal consent obtained to perform test. CDC Fact Sheet for Patients nCoV Diagnostic Panel dated 07/11/2019 and Factsheet What to Do if Sick with COVID 19 06/21/19 provided. Bilate nares swabbed during COVID19 nasopharyngeal swab. Patient swabbed per appropriate nasopharyngeal technique, and patient tolerated well. Patient was discharged from the testing clinic in stable condition. BRIAN SALES MA 01/04/2020 11:51 AM documented in this encounter Plan of Treatment Date Type Specialty Care Team Description 03/06/2020 Office Visit Cardiology Esteban Dempsey MD [address] [place] [address] [phone] Name Type Priority Associated Diagnoses Order S chedule COVID-19 (PCR MOLECULAR LAB Routine Exposure to Expe cted: 01/04/2020, TESTING) SARS-associated Expires: 11/2020 coronavirus Health Maintenance Due Date Last Done Comments [...] filedocumented in this encounter Visit Diagnoses Diagnosis Exposure to SARS-associated coronavirus - Primary documented in this encounter Additional Health Concerns Infection Onset Date Last Indicated Resolved Time COVID-19 Rule Out 01/04/2020 01/04/2020 documented as of this encounter Insurance Payer Benefit Plan / Subscriber ID Effective Phone Address T e Group Dates [facility] [id number] 2019-Elisa [phone] [address] [employer] [phone] [place] [address] documented as of this encounter
--- OUTSIDE RECORDS SUMMARY | 2020-01-13 16:14 | XMS REPORT | Summary of Care ---
:1965 Author Organization [facility] Address [address] [place] [address] Care Team Providers Name Role Phone Maria E Ornelas Primary Care Provider Reason for Visit Reason Comments New Patient (Routine) Status Reason Specialty Diagnoses / Procedures Referred By Ambika schmidt Referred To Contact Closed Cardiology Diagnoses Atherosclerotic heart disease of [place] coronary artery without angina pectoris Hayden Buckley Procedures [facility] [address] [facility] [facility] [address] [place] [address] Phone: Encounter Details Date Type Department Care Team Description 01/04/2020 Office Visit [facility] Esteban Dempsey Coronary tho ry Cardiology- Kathleen Rodriguez MD disease involving [address] [facility] [address] [facility] [place] coronary artery [facility], [address] of [place], [place] without angina [phone] pectoris (Primary Dx) [phone] Allergies Active Allergy Reactions Severity Noted Date Comments Morphine Hives, Itching 06/25/2013 Hydrocodone-Acetaminophen Hives, Itching 06/25/2013 documented as of this encounter (statuses as of 01/04/2020) Medications Medication Sig Dispensed Refills Start Date End Date Status TRAMADOL 50 mg tablet TAKE ONE TABLET 120 tablet 0 08/23/2016 Active BY MOUTH EVERY 6 HOURS NEEDED FOR PAIN (SCALE 4-6) CITALOPRAM 20 mg TAKE 1 TABLET BY 30 tablet 3 12/04/2016 Active tablet MOUTH EVERY DAY. ATENOLOL 50 mg tablet TAKE 1 TABLET BY 60 tablet 0 04/03/2017 Active MOUTH TWICE A DAY. Additional Information Patient taking differently: 50 mg DAILY, Reported on 01/04/2020 2:45 PM proMETHazine 25 mg Take 1 tablet by 20 tablet 0 05/14/2019 Active tabletIndications: mouth every 6 Vomiting, intractability (six) hours as of vomiting not specified, needed for presence of nausea not Nausea and specified, unspecified Vomiting (N/V). vomiting type levETIRAcetam 250 mg Take 250 mg by 0 Active tablet mouth 2 (two) times daily. insulin NPH hum/reg inject 80 Units 0 Active insulin hm (NOVOLIN 70/30 under the skin 2 SC) (two) times daily. lisinopril 10 mg tablet Take 10 mg by 0 Active mouth daily. simvastatin 40 mg tablet Take 40 mg by 0 Active mouth at bedtime. acetaZOLAMIDE 500 mg Take 500 mg by 0 Active capsule mouth 2 (two) times daily. gabapentin 300 mg Take 300 mg by 0 Active capsuleIndications: take 3 mouth. capsules BID Indications: take 3 capsules BID brinzolamide (AZOPT) 1 % 1 Drop 3 (three) 0 Active ophthalmic suspension times daily. drops Brimonidine-Timolol Place in each 0 Active (COMBIGAN) 0.2-0.5 % eye. ophthalmic drops travoprost (TRAVATAN Z) 1 Drop at 0 Active 0.004 % ophthalmic bedtime. solution nitroglycerin 0.[address] 1 tablet 1 Bottle 1 01/04/2020 Active sublingual under the tongue tabletIndications: every 5 (five) Coronary artery disease minutes as involving [place] coronary needed for Chest artery of [place] heart pain. without angina pectoris aspirin 325 mg tablet Take 325 mg by 0 11/27 Discontinued mouth daily. 020 clopidogrel 75 mg tablet TAKE 1 TABLET BY 30 tablet 2 02/12/20 17 Discontinued MOUTH EVERY DAY. 020 spironolactone 25 mg Take 25 mg by 0 01/03 Discontinued tablet mouth daily. 020 furosemide 40 mg tablet Take 40 mg by 0 Discontinued mouth 2 (two) 020 times daily. documented as of this encounter (statuses as of 01/04/2020) Active Problems Problem Noted Date Seizures 05/26/2019 History of CVA (cerebrovascular accident) 05/26/2019 History of MA (myocardial infarction) 05/26/2019 Encounter for screening colonoscopy 05/26/2019 Coronary artery disease involving [place] coronary tho ry of [place] heart 05/26/2019 without angina pectoris Cirrhosis of [...] Sign Reading Time Taken Comments Blood Pressure 160/79 01/04/2020 10:18 AM CDT Pulse 72 01/04/2020 10:18 AM CDT Temperature - - Respiratory Rate - - Oxygen Saturation 95% 01/04/2020 10:18 AM CDT Inhaled Oxygen Concentration - - Weight 104.1 kg (229 lb 6.4 oz) 01/04/2020 10:18 AM CDT Height 170.2 cm (5' 7") 01/04/2020 10:18 AM CDT Body Mass Index 35.93 01/04/2020 10:18 AM CDT documented in this encounter Progress Notes Esteban Dempsey MD - 01/04/2020 10:00 AM CDT [facility] Cardiology Consult Note Patient: Wero Kwong Date of : 1965 Date of service: 01/04/2020 Primary Care Physician: Maria E Ornelas CHIEF COMPLAINT: Chief Complaint Patient presents with New Patient HISTORY OF PRESENT ILLNESS: Wero Kwong is a 54 year old male presented to the clinic to establish care for CAD. History from patient. Patient seen and examined in the room. Pertinent cardiac related history reviewed from chart Risk factors: uncontrolled DM with complications (neuropathy, CKD), HTN, ESRD on HD, CAD, dyslipidemia. BEARD NYHA Class II. Recent discharge from [facility] was reviewed. Saw Dr Oquendo and Dr Carrillo (CTS). Reported to be not a surgical candidate. Wants to get second opinion with us. No history of exertional chest pain. No chest pain at rest. No PND or orthopnea. No pedal edema. No exertional palpitations or palpitations at rest. No syncopal attacks. Outside cardiac records CTA RESULTS 06/2019 Left Main: A long 4.1 artery which arises normally from the left sinus of Valsalva and divides into the left anterior descending, circumflex, and ramus coronary arteries. Moderate calcified and non-calcified atherosclerotic plaque is present but without significant stenosis. Left anterior descending (LAD): A normal sized 3.5 mm artery which wraps around the apex and gives off two diagonal branches. Severe calcified and non-calcified atherosclerotic plaque is present in the proximal, mid and distal segments with severe >70% stenosis in the proximal segment. The distal LAD beyond the takeoff of the second diagonal is a 2 mm artery with mild to moderate predominantly calcified atherosclerotic plaque but no significant stenosis. Patent 17 mm long stent in the mid left anterior descending coronary artery. The first diagonal is a 2.8 mm trifurcating artery which has moderate calcified and non-calcified atherosclerotic plaque present with approximately 50% stenosis. The second diagonal is a 1.5 mm artery which has no significant atherosclerotic plaque present. Left circumflex: A normal sized 3.3 mm non-dominant artery which arises normally from the left main and gives off one major obtuse marginal artery before terminating in the AV groove. Moderate calcified and non-calcified atherosclerotic plaque is present in the proximal segment with approximately 40% proximal stenosis. The first obtuse marginal is a 2.5 mm quadfurcated artery which has moderate calcified and non-calcified atherosclerotic plaque present with subtotal vs. total occlusion after the stent. Patent 17 mm long stent in the first obtuse marginal artery. Right coronary artery: A normal sized 4.2 mm dominant artery which arises normally from the right sinus of Valsalva and gives off several right ventricular branches, the posterior descending artery and the posterolateral artery. Moderate calcified and non-calcified atherosclerotic plaque is present in the proximal, mid and distal segments with severe >70% stenosis in the mid segment between the two stents. Patent 16 mm long stent in the proximal segment and patent 33 mm long stent in the distal segment of the right coronary artery. The posterior descending is a 1.8 mm bifurcating artery which has moderate predominantly calcified atherosclerotic plaque present but no significant stenosis. The posterolateral is a large 2.9 mm trifurcating artery which has mild calcified atherosclerotic plaque present but no significant stenosis. Ramus: A 1.8 mm artery which has mild calcified atherosclerotic plaque present but without significant stenosis. Stents: Patent stent in the left anterior descending coronary artery. Patent 17 mm long stent in the first obtuse marginal artery. Patent 16 mm long stent in the proximal segment and patent 33 mm long stent in the distal segment of the right coronary artery. Bypass Grafts: None. Pulmonary Arteries: Normal pulmonary artery sizes with no proximal thrombus identified. Left Atrial and Pulmonary Vein Dimensions: Left atrial size (A-P diameter) 4.4 cm. Left atrial volume 90 ml. Normal PV anatomy Left superior PV18mm. Left inferior PV14 mm. Right superior PV18 mm. Right inferior PV16 mm. There is no evidence of the left atrial appendage clot. Left Ventricular Valve Morphology/Function: LV septal wall thickness 16 mm. LV end-diastolic volume 137 ml. Aortic valve is tri-leaflet with trace aortic regurgitation (AROA <0.05cm2) Mitral valve is normal without evidence of significant stenosis Thoracic Aortic Dimensions: No aortic aneurysm or dissection is seen. Aortic root 3.7 cm. Sinotubular junction 2.6 cm. Mid ascending aorta 2.9 cm. Descending thoracic aorta 2.3 cm. Pericardium: No pericardial effusion or pericardial thickening. Non-Cardiac Findings: Mild bilateral pulmonary congestion. SVC catheter. CONCLUSION Coronary CTA shows severe coronary atherosclerosis with severe stenosis of the proximal left anterior descending and mid right coronary arteries; moderate stenosis of the first diagonal; and subtotal vs. total occlusion of the distal first obtuse marginal artery. Patent stent in the left anterior descending coronary artery. Patent 17 mm long stent in the first obtuse marginal artery. Patent 16 mm long stent in the proximal segment and patent 33 mm long stent in the distal segment of the right coronary artery. Aortic valve is tri-leaflet with trace aortic regurgitation (AROA <0.05cm2) Mitral valve is normal without evidence of significant stenosis Normal PV anatomy. There is no evidence of the left atrial appendage clot. Please refer to the separate radiology report in [facility] for any additional non-cardiovascular findings. Echo 06/2019 LV EF is normal. Estimated EF is 65-69% RV systolic function is normal. LV filling pressure is normal. Normal RAP. No significant valvular abnormalities. Previous Cardiac Studies: IMAGING - I personally reviewed, pertinent results as below: ECG 04/2019 Normal sinus rhythm Right bundle branch block Left posterior fasciclular block Bifascicular block Possible Inferior infarct age undetermined Abnormal ECG PAST MEDICAL HISTORY Past Medical History: Diagnosis Date Anxiety CAD [...] History: Procedure Laterality Date JOINT SURGERY Lt " OTHER Lower GI STENT PLACEMENT (SHX) Family History Problem Relation Age of Onset Heart Mother Diabetes Mother Stroke Mother SOCIAL HISTORY Social History Socioeconomic History Marital status: Spouse name: Not on file Number of children: Not on file Years of education: Not on file Highest education level: Not on file Occupational History Not on file Social Needs Financial resource strain: Not on file Food insecurity Worry: Not on file Inability: Not on file Transportation needs Medical: Not on file Non-medical: Not on file Tobacco Use Smoking status: Current Every Day Smoker Packs/day: 0.33 Years: 7.00 Pack years: 2.31 Types: Cigarettes Smokeless tobacco: Never Used Substance and Sexual Activity Alcohol use: Not Currently Alcohol/week: 0.0 standard drinks Frequency: Never Drug use: No Sexual activity: Not on file Lifestyle Physical activity Days per week: Not on file Minutes per session: Not on file Stress: Not on file Relationships Social connections Talks on phone: Not on file Gets together: Not on file Attends rastafarian service: Not on file Active member of club or organization: Not on file Attends meetings of clubs or organizations: Not on file Relationship status: Not on file Intimate partner violence Fear of current or ex partner: Not on file Emotionally abused: Not on file Physically abused: Not on file Forced sexual activity: Not on file Other Topics Concern Not on file Social History Narrative Lives at home with and daughter, daughter and son-in-law ALLERGIES Allergies Allergen Reactions Morphine Hives and Itching Vicodin [Hydrocodone-Acetaminophen] Hives and Itching MEDICATIONS Patient's Medications START taking these medications NITROGLYCERIN 0.[address] 1 tablet under the tongue every 5 (five) minutes as needed for Chest pain. CONTINUE taking these medications which have NOT CHANGED ACETAZOLAMIDE 500 MG CAPSULE Take 500 mg by mouth 2 (two) times daily. ATENOLOL 50 MG TABLET TAKE 1 TABLET BY MOUTH TWICE A DAY. BRIMONIDINE-TIMOLOL (COMBIGAN) 0.2-0.5 % OPHTHALMIC DROPS Place in each eye. BRINZOLAMIDE (AZOPT) 1 % OPHTHALMIC SUSPENSION DROPS 1 Drop 3 (three) times daily. CITALOPRAM 20 MG TABLET TAKE 1 TABLET BY MOUTH EVERY DAY. GABAPENTIN 300 MG CAPSULE Take 300 mg by mouth. Indications: take 3 capsules BID INSULIN NPH HUM/REG INSULIN HM (NOVOLIN 70/30 SC) inject 80 Units under the skin 2 (two) times daily. LEVETIRACETAM 250 MG TABLET Take 250 mg by mouth 2 (two) times daily. LISINOPRIL 10 MG TABLET Take 10 mg by mouth daily. PROMETHAZINE 25 MG TABLET Take 1 tablet by mouth every 6 (six) hours as needed for Nausea and Vomiting (N/V). SIMVASTATIN 40 MG TABLET Take 40 mg by mouth at bedtime. TRAMADOL 50 MG TABLET TAKE ONE TABLET BY MOUTH EVERY 6 HOURS NEEDED FOR PAIN (SCALE 4-6) TRAVOPROST (TRAVATAN Z) 0.004 % OPHTHALMIC SOLUTION 1 Drop at bedtime. START taking Modified Medications as Prescribed No medications on file STOP taking these medications ASPIRIN 325 MG TABLET Take 325 mg by mouth daily. CLOPIDOGREL 75 MG TABLET TAKE 1 TABLET BY MOUTH EVERY DAY. FUROSEMIDE 40 MG TABLET Take 40 mg by mouth 2 (two) times daily. SPIRONOLACTONE 25 MG TABLET Take 25 mg by mouth daily. REVIEW OF SYSTEMS: Comprehensive 10-system review was conducted and were negative except for what's noted in the HPI. The following systems were reviewed: Constitutional, cardiovascular, respiratory, gastrointestinal, genitourinary, musculoskeletal, neurologic, psychiatric, endocrinological, and hematological. PHYSICAL EXAMINATION: Vitals: 01/04/20 1018 BP: (!) 160/79 BP Location: Left arm Patient Position: Sitting BP CUFF SIZE: Adult Medium Pulse: 72 SpO2: 95% Weight: 229 lb 6.4 oz (104.1 kg) Height: 5' 7" (1.702 m) General: no apparent distress HEENT: normocephalic atraumatic Neck: supple, no lymphadenopathy, no bruits, no JVD Lungs: clear to auscultation bilaterally. No wheezes or rhonchi. No increased work of breathing. Cardio: Regular rate and rhythm, S1&S2 normal, no murmurs, rubs or gallops Abdomen: soft; non-tender; non-distended; normoactive bowel sounds. : not examined Rectal: not examined Extremities: no clubbing, cyanosis, or edema. Skin: no rashes, no visible lesions. Neuro: no gross focal deficits LABS - Reviewed pertinent labs as below: CBC BMP PT/INR WBC (10*3/L) Date Value 01/04/2020 5.09 NA (mmol/L) Date Value 01/04/2020 134 (L) No results found for: PT PLT (10*3/L) Date Value 01/04/2020 127 (L) K (mmol/L) Date Value 01/04/2020 4.8 INR (no units) Date Value 05/14/2019 0.9 HGB (g/dL) Date Value 01/04/2020 12.2 BUN (mg/dL) Date Value 01/04/2020 30 (H) HCT (%) Date Value 01/04/2020 35.3 (L) CREATININE (mg/dL) Date Value 01/04/2020 4.41 (H) LIPID PROFILE GLUCOSE (mg/dL) Date Value 01/04/2020 608 (HH) No results found for: CHOL TSH No results found for: LDL No results found for: TSH CARDIAC ENZYMES No results found for: HDL CK (U/L) Date Value 01/20/2015 239 (H) No results found for: TRIG LFTs CK-MB (ng/mL) Date Value 01/20/2015 2.20 AST(SGOT) (U/L) Date Value 01/04/2020 30 TROPONIN I (ng/mL) Date Value 05/14/2019 0.012 ALT(SGPT) (U/L) Date Value 07/10/2017 40 ALTv (U/L) Date Value 01/04/2020 28 No results found for: BNP No results found for: LDL Recent Labs 05/14/19 0257 TROPNI 0.012 There are no current results on file for these tests and/or test for 1 year. No results found for: LDL NT-proBNP (pg/mL) Date Value 01/04/2020 2,920 (H) ASSESSMENT/PLAN 1. Coronary artery disease involving [place] coronary artery of [place] heart without angina pectorisnitroglycerin 0.4 mg sublingual tablet CBC WITH DIFF COMP. METABOLIC PANEL (60857) GLYCOSYLATED HEMOGLOBIN (A1C) LIPID PANEL (62142)(TOTAL CHOLESTEROL, TRIGLYCERIDES, HDL) LOW-DENSITY LIPOPROTEIN, DIRECT N-TERMINAL PRO-BNP Severe CAD: Coronary CTA shows severe coronary atherosclerosis with severe stenosis of the proximal left anterior descending and mid right coronary arteries; moderate stenosis of the first diagonal; and subtotalvs. total occlusion of the distal first obtuse marginal artery. Per DC summary from [facility]: Dr Carrillo. Based on work up done there, he was noted NOT a candidate for CABG. Patient and his prefers getting second opinion. Recommend to get prior Cath CD done in [facility]. Will upload. Will refer to [facility] CTS. Recommend to restart ASA 81 mg daily Reports Plavix was stopped since 05/2019 due to opthal issues. Reports PCI > 1 yr. Continue Atenolol 50 mg daily and Zocor 40 mg daily. SL nitro script sent. ER warning signs explained. HTN: Currently on Atenolol 50 mg daily and Lisinopril 10 mg daily. Holds on day on dialysis. Home BP log recommended. Cross check his BP machine. Appropriate ways to check home BP discussed. Goals BP < 130/80 stressed. Explained if BP > 130/80, adviced to send us the log. Lifestyle modifications stressed. Dyslipidemia: Recommended to keep LDL < 70. Lifestyle modifications stressed. Currently on Zocor 40 mg daily. No results found for: LDL T2DM: Uncontrolled. Follows Endo. Reports improving A1c. Liver Cirrhosis: Follows outside GI specialist in [place]. Recommend to send us records. ESRD on HD: Follows Dr Murillo. Vascular work up: will plan after next OV. Follow up in 2 months. Orders Placed This Encounter Procedures CBC WITH DIFF COMP. METABOLIC PANEL (47577) GLYCOSYLATED HEMOGLOBIN (A1C) LIPID PANEL (19881)(TOTAL CHOLESTEROL, TRIGLYCERIDES, HDL) LOW-DENSITY LIPOPROTEIN, DIRECT N-TERMINAL PRO-BNP Requested Prescriptions Signed Prescriptions Disp Refills nitroglycerin 0.4 mg sublingual tablet 1 Bottle 1 Sig: Place 1 tablet under the tongue every 5 (five) minutes as needed for Chest pain. Patient's diease process and its evaluation and treatment were discussed. We discussed each of for cardio vascular-related problems and discussed long-term goals and expectations for the each problem.I reviewed each of the cardiac medications in detail. Reviewed the medication with patient in detail recommended to continue taking the current medications without further changes other than changes mentioned above. Recommended goal BP < 130/80 consistently, LDL << 70, HbA1c < 6.5. Recommended, explained and stressed the importance of healthy eating habits and exercises and lifestyle modifications Follow up as planned is predicated on symptoms stability and/or acceptable test results. Patient is urged to call in sooner should problems arise or if there is no improvement in cardiac symptoms. ER warning signs and symptoms explained and patient verbalized understanding. My diagnostic impression and treatment plans were discussed at length with the patient and family member present. All side effects as well as drug-drug interactions and risks discussed at length. Ample opportunity was offered and encouraged to ask questions during this visit and patient appreciated the answers given by me and verbzalised statisfcation in the answers given. We reviewed the [place] [employer] recommendations for reduction of overall cardio vascular risk. The importance of monitoring the blood pressure carefully both at home on regular basis along with other physicians appointment was stressed in detail. In addition we discussed target LDL levels for optimal risk reduction. It was advised that to daily physical activity be performed with 30 minutes of sustained exercise for both cardio vascular fitness and improvement for generalized medical health and well-being. Thank you for allowing us to participate in the care of Wero Kwong. If you have any questions or concerns please feel free to call our office at [phone]. I would be happy to be of further assistance for Wero lal. Johnnie Dempsey MD [facility], Division of Cardiology [facility] documented in this encounter Plan of Treatment Date Type Specialty Care Team Description 03/06/2020 Office Visit Cardiology Esteban Dempsey MD [address] [place] [phone] Name Type Priority Associated Diagnoses Date/Ti me LOW-DENSITY LAB Routine Coronary artery disease 11/2019 11:29 AM CDT LIPOPROTEIN, DIRECT involving [place] rosanna nary artery of [place] heart without angina pectoris Name Type Priority Associated Diagnoses Order S chedule LOW-DENSITY LAB Routine Coronary artery disease 1 Oc currences starting LIPOPROTEIN, DIRECT involving [place] rosanna nary 01/04/2020 until artery of [place] heart 01/03 without angina pectoris Health Maintenance Due Date Last Done Comments [...] 05/26/2019 documented as of this encounter Results N-TERMINAL PRO-BNP (01/04/2020 11:29 AM CDT) Pathologist Sig nature NT-proBNP 2,920 (H) <=125 pg/mL [facility] Specimen Blood Narrative Performed At Biotin has been reported to cause a negative [facility] bias, interpret results relative to patient's use of biotin. Performing Organization Address [facility] Phone Number [facility] CLIA: [id number] [place] [address] LABORATORY [address] [facility] LIPID PANEL (30405)(TOTAL CHOLESTEROL, TRIGLYCERIDES, HDL) (01/04/2020 11:29 AM CDT) CHOL 184 120 - 200 [facility] mg/dL [facility]ITAL [facility] HDL 31 (L) >40 mg/dL [facility] HDLC RATIO 5.9 (H) <=5.0 [facility] TRIG 588 (H) 30 - 170 mg/dL [facility] LDL CHOL Comment: Unable to [facility] calculate LDL due to HOSPITAL LAB[facility]ORY elevated triglyceride level greater than 400 mg/dL. VLDL 118 (H) 5 - 60 mg/dL [facility] Specimen Blood Performing Organization Address [facility] Phone Number [facility] CLIA: [id number] [place] [address] LABORATORY [address] [facility] GLYCOSYLATED HEMOGLOBIN (A1C) (01/04/2020 11:29 AM CDT) Pathologist Sig nature HGB A1C 9.1 (H) 4.0 - 6.0 % [facility] Specimen Blood Narrative Performed At %A1C (NGSP) Interpretation (ADA) [facility] 4.8-5.6 Normal or (Non-Diabetic Ra nge) 5.7-6.4 Increased Risk (Pre-Diabet ic) >6.5 Diabetes Indicated Performing Organization Address [facility]/Zipcode Phone Number [facility] CLIA: [id number] [place] [address] LABORATORY [address] [facility] COMP. METABOLIC PANEL (67558) (01/04/2020 11:29 AM CDT) NA 134 (L) 135 - 145 [facility] mmol/L [facility] K 4.8 3.5 - 5.0 [facility] mmol/L [facility]ORY CL 97 (L) 98 - 108 mmol/L [facility] CO2 TOTAL 28 23 - 31 mmol/L [facility] AGAP 9 2 - 16 [facility] BUN 30 (H) 7 - 23 mg/dL [facility] GLUCOSE 608 (HH) 70 - 110 mg/dL [facility] CREATININE 4.41 (H) 0.60 - 1.25 [facility] mg/dL [facility] TOTAL BILI 0.5 0.1 - 1.1 mg/dL [facility] CALCIUM 8.2 (L) 8.6 - 10.6 [facility] mg/dL [facility] LABORATORY T PROTEIN 6.2 (L) 6.3 - 8.2 g/dL [facility] ALBUMIN 3.3 (L) 3.5 - 5.0 g/dL [facility] ALK PHOS 168 (H) 34 - 122 U/L [facility] ALTv 28 5 - 50 U/L [facility] AST(SGOT) 30 13 - 40 U/L [facility] eGFR Calculation 14.2 mL/min/1.73m2 [facility] (Non-[facility][note 3] LABORATORY Cypriot) eGFR Calculation 17.2 mL/min/1.73m2 [facility] () [facility] LABORATORY Specimen Blood Narrative Performed At Association of Glomerular Filtration Rate (GFR) [facility] and Staging of Kidney Disease* + + +- + | GFR (mL/min/1.73 m2) | With Kidney Damage | Without Kidney Damage + + +- + | >90 | Stage one | Normal + + +- + | 60-89 | Stage two | Decreased GFR + + +- + | 30-59 | Stage three | Stage three + + +- + | 15-29 | Stage four | Stage four + + +- + | <15 (or dialysis) | Stage five | Stage five + + +- + *Each stage assumes the associated GFR [...] tests). Performing Organization Address City/State/Zipcode Phone Number [facility] CLIA: [id number] [place], [place] [id number] LABORATORY [address] CBC WITH DIFF (01/04/2020 11:29 AM CDT) Pathologist Sig nature WBC 5.09 4.20 - 10.70 [facility] 10*3/L [facility] LABORATORY RBC 3.65 (L) 4.26 - 5.52 [facility] 10*6/L [facility] LABORATORY HGB 12.2 12.2 - 16.4 [facility] g/dL [facility] LABORATORY HCT 35.3 (L) 38.4 - 49.3 % [facility] MCV 96.7 (H) 81.7 - 95.6 fL [facility] MCH 33.4 (H) 26.1 - 32.7 pg [facility] MCHC 34.6 31.2 - 35.0 [facility] g/dL [facility] LABORATORY RDW-SD 47.7 38.5 - 51.6 fL [facility] RDW-CV 13.5 12.1 - 15.4 % [facility]OR[facility] PLT 127 (L) 150 - 328 [facility] 10*3/L [facility] LABORATORY MPV 13.0 9.8 - 13.0 fL [facility] NRBC/100 WBC 0.0 0.0 - 10.0 /100 [facility] WBCs [facility] LABORATORY NRBC x10^3 <0.01 10*3/L [facility] GRAN MAT (NEUT) % 63.6 % [facility] IMM GRAN % 0.60 % [facility] LYMPH % 22.6 % [facility] MONO % 7.7 % [facility] EOS % 4.7 % [facility] BASO % 0.8 % [facility] GRAN MAT x10^3(ANC) 3.24 1.99 - 6.95 [facility] 10*3/uL HOSPITAL LABORATORY IMM GRAN x10^3 0.03 0.00 - 0.06 [facility] 10*3/uL HOSPITAL LABORATORY LYMPH x10^3 1.15 1.09 - 3.23 [facility] 10*3/uL HOSPITAL LABORATORY MONO x10^3 0.39 0.36 - 1.02 [facility] 10*3/uL HOSPITAL LABORATORY EOS x10^3 0.24 0.06 - 0.53 [facility] 10*3/uL HOSPITAL LABORATORY BASO x10^3 0.04 0.01 - 0.09 [facility] 10*3/uL [facility] LABORATORY Specimen Blood Performing Organization Address City/State/Zipcode Phone Number [facility] CLIA: [id number] [place] [address] documented in this encounter Visit Diagnoses Diagnosis Coronary artery disease involving [place] coronary artery of [place] heart without angina pectoris - Primary documented in this encounter Insurance Payer Benefit Plan / Subscriber ID Effective Phone Address T e Group Dates [facility] [id number] 2019-[facility] [phone] [address] X O [employer] [facility] [phone] [place] [address] documented as of this encounter
--- OUTSIDE RECORDS SUMMARY | 2020-01-13 16:14 | XMS REPORT | Summary of Care ---
:1965 Author Organization 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 [place] heart without angina pectoris documented as of this encounter (statuses as of 01/04/2020) Active Problems Problem Noted Date Seizures 05/26/2019 History of CVA (cerebrovascular accident) 05/26/2019 History of MS (myocardial infarction) 05/26/2019 Encounter for screening colonoscopy 05/26/2019 Coronary artery disease involving [place] coronary tho ry of [place] heart 05/26/2019 without angina pectoris Cirrhosis of [...] on filedocumented in this encounter Nursing Notes Sravani Ceron - 01/04/2020 11:15 AM CDT Venipuncture collection performed by clean technique on the left anticubitus. Total of 1 attempts were made. Slight pressure and a bandage/dressing were applied to the site(s). The patient experienced no complications. The following specimens were processed according to instructions and sent to [facility] laboratories per lab order on 01/04/20: LT BLUE SST 2 RED LAV 2 PPT DK GREEN (LiHep) DK GREEN (SodH) ROSALES DK BLUE (K2) DK BLUE (S) ACD Blood Culture NIPT/NTD documented in this encounter Plan of Treatment Date Type Specialty Care Team Description 03/06/2020 Office Visit Cardiology Esteban Dmepsey MD [address] [place] [address] [phone] Name Type Priority Associated Diagnoses Date/Ti me GLYCOSYLATED HEMOGLOBIN LAB Routine Coronary artery d isease 01/04/2020 11:29 AM (A1C) involving [place] CDT coronary artery of [place] heart without angina pectoris LIPID PANEL (78225)(TOTAL LAB Routine Coronary artery disease 01/04/2020 11:29 AM CHOLESTEROL, involving [place] CDT TRIGLYCERIDES, HDL) coronary artery of [place] heart without angina pectoris LOW-DENSITY LIPOPROTEIN, LAB Routine Coronary artery disease 01/04/2020 11:29 AM DIRECT involving [place] CDT coronary artery of [place] heart without angina pectoris LOW-DENSITY LIPOPROTEIN, LAB Routine Coronary artery disease 01/04/2020 11:29 AM DIRECT involving [place] CDT coronary artery of [place] heart without angina pectoris Health Maintenance Due Date [...] 05/26/2029 05/26/2019 documented as of this encounter Procedures Procedure Name Priority Date/Time Associated Diagnosis Comme nts N-TERMINAL PRO-BNP Routine 01/04/2020 11:29 AM Coronary artery Results for this CDT disease involving procedure are in [place] coronary the results artery of [place] section. heart without angina pectoris CBC WITH DIFF Routine 01/04/2020 11:29 AM Coronary artery Resu lts for this CDT disease involving procedure are in [place] coronary the results artery of [place] section. heart without angina pectoris COMP. METABOLIC Routine 01/04/2020 11:29 AM Coronary artery Re sults for this PANEL (00030) CDT disease involving procedure are in [place] coronary the results artery of [place] section. heart without angina pectoris documented in this encounter Results N-TERMINAL PRO-BNP (01/04/2020 11:29 AM CDT) Pathologist Sig nature NT-proBNP 2,920 (H) <=125 pg/mL [facility] Specimen Blood Narrative Performed At Biotin has been reported to cause a negative [facility] bias, interpret results relative to patient's use of biotin. Performing Organization Address City/State/Zipcode Phone Number [facility] CLIA: [id number] [place] [address] COMP. METABOLIC PANEL (39342) (01/04/2020 11:29 AM CDT) NA 134 (L) 135 - 145 [facility] mmol/L [facility] LABORAT[facility] K 4.8 3.5 - 5.0 [facility] mmol/L [facility] LABORAT[facility] CL 97 (L) 98 - 108 mmol/L [facility] CO2 TOTAL 28 23 - 31 mmol/L [facility] AGAP 9 2 - 16 [facility] BUN 30 (H) 7 - 23 mg/dL [facility] GLUCOSE 608 (HH) 70 - 110 mg/dL [facility] CREATININE 4.41 (H) 0.60 - 1.25 [facility] mg/dL [facility] LAB[facility] TOTAL BILI 0.5 0.1 - 1.1 mg/dL [facility] CALCIUM 8.2 (L) 8.6 - 10.6 [facility] mg/dL [facility] LABORAT[facility] T PROTEIN 6.2 (L) 6.3 - 8.2 g/dL [facility] ALBUMIN 3.3 (L) 3.5 - 5.0 g/dL [facility] ALK PHOS 168 (H) 34 - 122 U/L [facility] ALTv 28 5 - 50 U/L [facility] AST(SGOT) 30 13 - 40 U/L [facility] eGFR Calculation 14.2 mL/min/1.73m2 [facility] ([facility] LABORATORY Somali) eGFR Calculation 17.2 mL/min/1.73m2 [facility] () [facility] Specimen Blood Narrative Performed At Association of Glomerular Filtration Rate (GFR) [facility] and Staging of Kidney Disease* [...] tests). Performing Organization Address City/State/Zipcode Phone Number [facility] CLIA: [id number] [place] [address] CBC WITH DIFF (01/04/2020 11:29 AM CDT) Pathologist Sig nature WBC 5.09 4.20 - 10.70 [facility] 10*3/L [facility] RBC 3.65 (L) 4.26 - 5.52 [facility] 10*6/L [facility] HGB 12.2 12.2 - 16.4 [facility] g/dL [facility] HCT 35.3 (L) 38.4 - 49.3 % [facility] MCV 96.7 (H) 81.7 - 95.6 fL [facility] MCH 33.4 (H) 26.1 - 32.7 pg [facility] MCHC 34.6 31.2 - 35.0 [facility] g/dL [facility] LAB[facility] RDW-SD 47.7 38.5 - 51.6 fL [facility] RDW-CV 13.5 12.1 - 15.4 % [facility] PLT 127 (L) 150 - 328 [facility] 10*3/L [facility] LAB[facility] MPV 13.0 9.8 - 13.0 fL [facility] NRBC/100 WBC 0.0 0.0 - 10.0 /100 [facility] WBCs [facility] NRBC x10^3 <0.01 10*3/L [facility] GRAN MAT (NEUT) % 63.6 % [facility] IMM GRAN % 0.60 % [facility] LYMPH % 22.6 % [facility] MONO % 7.7 % [facility] EOS % 4.7 % [facility] BASO % 0.8 % [facility] GRAN MAT x10^3(ANC) 3.24 1.99 - 6.95 [facility] 10*3/uL HOSPITAL LABORATORY IMM GRAN x10^3 0.03 0.00 - 0.06 [facility] 10*3/uL HOSPITAL LABORATORY LYMPH x10^3 1.15 1.09 - 3.23 [facility] 10*3/uL HOSPITAL LABORATORY MONO x10^3 0.39 0.36 - 1.02 [facility] 10*3/uL HOSPITAL LABORATORY EOS x10^3 0.24 0.06 - 0.53 [facility] 10*3/uL HOSPITAL LABORATORY BASO x10^3 0.04 0.01 - 0.09 [place] [address]*3/uL [facility] Specimen Blood Performing Organization Address City/State/Zipcode Phone Number [facility] CLIA: [id number] [place] [address] documented in this encounter Visit Diagnoses Diagnosis Coronary artery disease involving [place] coronary artery of [place] heart without angina pectoris documented in this encounter Insurance Payer Benefit Plan / Subscriber ID Effective Phone Address T e Group Dates [facility] [id number] 2019-[facility] [phone] [address] X [employer] [facility] [phone] [place] [address] documented as of this encounter"
--- OUTSIDE RECORDS SUMMARY | 2020-01-13 16:14 | XMS REPORT | Summary of Care ---
:1965 Author Organization [facility] Address [address] [place] [address] Care Team Providers Name Role Phone Maria E Ornelas Primary Care Provider Reason for Visit Reason Comments New Patient (Routine) Status Reason Specialty Diagnoses / Procedures Referred By Ambika schmidt Referred To Contact Closed Cardiology Diagnoses Atherosclerotic heart disease of [place] coronary artery without angina pectoris Hayden Buckley Procedures [facility] [address] [place] [address] Phone: Encounter Details Date Type Department Care Team Description 01/04/2020 Office Visit [facility] Esteban Dempsey Coronary tho ry Cardiology- Kathleen Rodriguez MD disease involving [address] [facility] [address] [facility] [place] coronary artery [facility], [address] [place], [place] without angina [phone] pectoris (Primary Dx) [phone] Allergies Active Allergy Reactions Severity Noted Date [...] (five) Coronary artery disease minutes as involving [place] coronary needed for Chest artery of [place] heart pain. without angina pectoris aspirin 325 [...] of CVA (cerebrovascular accident) 05/26/2019 History of [place] (myocardial infarction) 05/26/2019 Encounter for screening colonoscopy 05/26/2019 Coronary artery disease involving [place] coronary tho ry of [place] heart 05/26/2019 without angina pectoris Cirrhosis of [...] Dempsey MD - 01/04/2020 10:00 AM CDT [facility] Cardiology Consult Note Patient: Wero Kwong Date [...] BEARD NYHA Class II. Recent discharge from [facility] was reviewed. Saw Dr Oquendo and [...] the separate radiology report in [facility] for any additional non-cardiovascular findings. Echo 06/2019 [...] file Gets together: Not on file Attends moravian service: Not on file Active member of [...] (H) ASSESSMENT/PLAN 1. Coronary artery disease involving [place] coronary artery of [place] heart without angina pectorisnitroglycerin 0.4 mg sublingual tablet CBC WITH DIFF COMP. METABOLIC PANEL (42465) GLYCOSYLATED HEMOGLOBIN (A1C) LIPID PANEL (44329)(TOTAL CHOLESTEROL, TRIGLYCERIDES, HDL) LOW-DENSITY LIPOPROTEIN, DIRECT N-TERMINAL PRO-BNP Severe CAD: Coronary CTA shows severe coronary atherosclerosis with severe stenosis of the proximal left anterior descending and mid right coronary arteries; moderate stenosis of the first diagonal; and subtotalvs. total occlusion of the distal first obtuse marginal artery. Per DC summary from [facility]: Dr Carrillo. Based on work up done there, he was noted NOT a candidate for CABG. Patient and his prefers getting second opinion. Recommend to get prior Cath CD done in [facility]. Will upload. Will refer to [facility] CTS. Recommend to restart ASA 81 mg [...] Liver Cirrhosis: Follows outside GI specialist in [place]. Recommend to send us records. ESRD on HD: Follows Dr Murillo. Vascular work up: will plan after next OV. Follow up in 2 months. Orders Placed This Encounter Procedures CBC WITH DIFF COMP. METABOLIC PANEL (51155) GLYCOSYLATED HEMOGLOBIN (A1C) LIPID PANEL (30274)(TOTAL CHOLESTEROL, TRIGLYCERIDES, HDL) LOW-DENSITY LIPOPROTEIN, DIRECT N-TERMINAL [...] in the answers given. We reviewed the [place] [employer] recommendations for reduction of overall [...] feel free to call our office at [phone]. I would be happy to be of further assistance for Wero lal. Johnnie Dempsey MD Category Director, Division of Cardiology [facility] documented in this encounter Plan of Treatment Date Type Specialty Care Team Description 03/06/2020 Office Visit Cardiology Esteban Dempsey MD [address] [place] [phone] Name Type Priority Associated Diagnoses Date/Ti me LOW-DENSITY LAB Routine Coronary artery disease 11/2019 11:29 AM CDT LIPOPROTEIN, DIRECT involving [place] artery of [place] heart without angina pectoris Name Type Priority Associated Diagnoses Order S chedule LOW-DENSITY LAB Routine Coronary artery disease 1 Oc currences starting LIPOPROTEIN, DIRECT involving [place] nary 01/04/2020 until artery of [place] heart 01/03 without angina pectoris Health Maintenance [...] Sig nature NT-proBNP 2,920 (H) <=125 pg/mL [facility] Specimen Blood Narrative Performed At Biotin has been reported to cause a negative [facility] bias, interpret results relative to patient's use of biotin. Performing Organization Address [facility] Phone Number [facility] CLIA: [id number] [place] [address] LABORATORY [address] [facility] LIPID PANEL (55730)(TOTAL CHOLESTEROL, TRIGLYCERIDES, HDL) (01/04/2020 11:29 AM CDT) CHOL 184 120 - 200 [facility] mg/dL HOSPITAL LABORATORY HDL 31 (L) >40 mg/dL [facility] HDLC RATIO 5.9 (H) <=5.0 [facility] TRIG 588 (H) 30 - 170 mg/dL [facility] LDL CHOL Comment: Unable to [facility] calculate LDL due to HOSPITAL LABORATORY elevated triglyceride level greater than 400 mg/dL. VLDL 118 (H) 5 - 60 mg/dL [facility] Specimen Blood Performing Organization Address [facility] Phone Number [facility] CLIA: [id number] [place] [address] LABORATORY [address] [facility] GLYCOSYLATED HEMOGLOBIN (A1C) (01/04/2020 11:29 AM CDT) Pathologist Sig nature HGB A1C 9.1 (H) 4.0 - 6.0 % [facility]OR[facility] Specimen Blood Narrative Performed At %A1C (NGSP) Interpretation (ADA) [facility] 4.8-5.6 Normal or (Non-Diabetic Ra nge) 5.7-6.4 Increased Risk (Pre-Diabet ic) >6.5 Diabetes Indicated Performing Organization Address [facility]/Zipcode Phone Number [facility] CLIA: [id number] [place] [address] LABORATORY [address] [facility] COMP. METABOLIC PANEL (43248) (01/04/2020 11:29 AM CDT) NA 134 (L) 135 - 145 [facility] mmol/L [facility] K 4.8 3.5 - 5.0 [facility] mmol/L [facility] CL 97 (L) 98 - 108 mmol/L [facility] CO2 TOTAL 28 23 - 31 mmol/L [facility] AGAP 9 2 - 16 [facility] BUN 30 (H) 7 - 23 mg/dL [facility] GLUCOSE 608 (HH) 70 - 110 mg/dL [facility] CREATININE 4.41 (H) 0.60 - 1.25 [facility] mg/dL [facility] TOTAL BILI 0.5 0.1 - 1.1 mg/dL [facility] CALCIUM 8.2 (L) 8.6 - 10.6 [facility] mg/dL [facility] T PROTEIN 6.2 (L) 6.3 - 8.2 g/dL [facility] ALBUMIN 3.3 (L) 3.5 - 5.0 g/dL [facility] ALK PHOS 168 (H) 34 - 122 U/L [facility] ALTv 28 5 - 50 U/L [facility] AST(SGOT) 30 13 - 40 U/L [facility] eGFR Calculation 14.2 mL/min/1.73m2 [facility] ([facility] LABORATORY [place]) eGFR Calculation 17.2 mL/min/1.73m2 [facility] () [facility] Specimen Blood Narrative Performed At Association of Glomerular Filtration Rate (GFR) [facility] and Staging of Kidney Disease* [...] tests). Performing Organization Address City/State/Zipcode Phone Number [facility] CLIA: [id number] [place], [place] [id number] LABORATORY [address] CBC WITH DIFF (01/04/2020 11:29 AM CDT) Pathologist Sig nature WBC 5.09 4.20 - 10.70 [facility] 10*3/L [facility] RBC 3.65 (L) 4.26 - 5.52 [facility] 10*6/L [facility] HGB 12.2 12.2 - 16.4 [facility] g/dL [facility] HCT 35.3 (L) 38.4 - 49.3 % [facility] MCV 96.7 (H) 81.7 - 95.6 fL [facility] MCH 33.4 (H) 26.1 - 32.7 pg [facility] MCHC 34.6 31.2 - 35.0 [facility] g/dL [facility] RDW-SD 47.7 38.5 - 51.6 fL [facility] RDW-CV 13.5 12.1 - 15.4 % [facility]OR[facility] PLT 127 (L) 150 - 328 [facility] 10*3/L [facility] MPV 13.0 9.8 - 13.0 fL [facility] NRBC/100 WBC 0.0 0.0 - 10.0 /100 [facility] WBCs [facility] NRBC x10^3 <0.01 10*3/L [facility] GRAN MAT (NEUT) % 63.6 % [facility] IMM GRAN % 0.60 % [facility] LYMPH % 22.6 % [facility] MONO % 7.7 % [facility] EOS % 4.7 % [facility] BASO % 0.8 % [facility] GRAN MAT x10^3(ANC) 3.24 1.99 - 6.95 [facility] 10*3/uL HOSPITAL LABORATORY IMM GRAN x10^3 0.03 0.00 - 0.06 [facility] 10*3/uL HOSPITAL LABORATORY LYMPH x10^3 1.15 1.09 - 3.23 [facility] 10*3/uL HOSPITAL LABORATORY MONO x10^3 0.39 0.36 - 1.02 [facility] 10*3/uL HOSPITAL LABORATORY EOS x10^3 0.24 0.06 - 0.53 [facility] 10*3/uL HOSPITAL LABORATORY BASO x10^3 0.04 0.01 - 0.09 [facility] 10*3/uL [facility] Specimen Blood Performing Organization Address City/State/Zipcode Phone Number [facility] CLIA: [id number] [place] [address] documented in this encounter Visit Diagnoses Diagnosis Coronary artery disease involving [place] coronary artery of [place] heart without angina pectoris - Primary documented in this encounter Insurance Payer Benefit Plan / Subscriber ID Effective Phone Address T e Group Dates [facility] [id number] 2019-[facility] [phone] [address] X O [employer] [facility] [phone] [place] [address] documented as of this encounter
--- OUTSIDE RECORDS SUMMARY | 2020-01-13 16:14 | XMS REPORT | Continuity of Care Document ---
:1965 Author Organization [facility] t Address [address] [place] [address] Care Team Providers Name Role Phone Attar Primary Care Physician Nurse, Urgent Attending Clinician Unavailable 2, Lab Attending Clinician Unavailable Ke BOSS, K.H. Attending Clinician Aniceto Palomino MD Attending Clinician Erick BOSS Attending Clinician Mario RN Attending Clinician Unavailable Ryan Jeffery MD Attending Clinician Chandana BOSS, O. Attending Clinician Lupe RN Attending Clinician Unavailable Maico Tyler MD Attending Clinician Ventura BOSS, A. Attending Clinician Farhad CORONA Attending Clinician Unavailable NOBLE RODRIGUES Attending Clinician Unavailable CHANDANA Admitting Clinician Unavailable NOBLE RODRIGUES Admitting Clinician Unavailable Payers Payer Name Policy Type Policy Number Effective Date Expiration Date Critical access hospital xxxxxxxxxxxx 2019 [place] CHOICE 00:00:00 [facility] [employer] [facility] EXCHANGE MARKETPLACExxxxxx /29/2019-Pr esentExchange Problems Condition Condition Condition Status Onset Resolution Last Treating Co mments Source Name Details Category Date Date Treatment Clinician Date Diabetic Diabetic Disease Active [place] peripheral peripheral 2-19 Mi thodi neuropathy neuropathy 00:00: st 00 Chronic Chronic Disease Active Jud kidney kidney 2-19 Methodi disease, disease, 00:00: st stage III stage III 00 (moderate) (moderate) Diarrhea, Diarrhea, Disease Active Ferdinand ston unspecifie unspecifie 2-19 Me thodi d d 00:00: st 00 Edema of Edema of Disease Active [place] left orbit left orbit 2-19 Me thodi 00:00: st 00 Hyperglyce Hyperglyce Disease Active H [facility] cristóbal 2-15 Methodi 00:00: st 00 Subdural Subdural Disease [facility] hematoma 01-08 - due to due to 00:00: Medical concussion concussion 00 Ce nter , with , with loss of loss of consciousn consciousn ess, ess, subsequent subsequent encounter encounter Unstable Unstable Disease [facility] angina angina 01-[facility] - 00:00: Medical 00 [place] Hyperglyce Hyperglyce Disease Active [facility] cristóbal due to cristóbal due to 01-08 [facility] - type 2 type 2 00:00: Medical diabetes diabetes 00 Center mellitus mellitus Hypertensi Hypertensi Disease Active [facility] 01-08 [facility] 00 [place] CKD CKD Disease Active [facility] (chronic (chronic 01-08 - kidney kidney 00:00: Medical disease) disease) 00 Center Acute Acute Disease Active 2017-04 Jud renal renal 1-23 Methodi failure failure 00:00: st 00 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 0-14 Meth susi diabetes diabetes 00:00: st mellitus mellitus 00 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 0-13 Methodi 00:00: st 00 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 Jud 0-13 Methodi 00:00: st 00 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 0-13 Method i posterior posterior 00:00: st communicat communicat 00 ing artery ing artery Chest pain Chest pain Disease Active [place] 8-06 Methodi 00:00: st 00 Essential Essential Disease Active Ferdinand ston hypertensi hypertensi 8- Mi thodi on on 00:00: st 00 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 12-01 Method[facility] disease disease 00:00: st involving involving 00 [place] coronary coronary artery of artery of [place] heart with heart with angina angina pectoris pectoris Cirrhosis Cirrhosis Disease Active Ferdinand hernández 12-01 Methodi 00:00: st 00 Hypertrigl Hypertrigl Disease Active [facility] yceridemia yceridemia 12-01 Me thodi 00:00: st 00 Depression Depression Disease Active [place] 12-01 Methodi 00:00: st 00 Allergies, Adverse Reactions, Alerts Allergy Allergy Status Severity Reaction(s) Onset Inactive Treating Comm ents Source Name Type Date Date Clinician Ketorola Propensi Active Hallucinatio [facility] ty to ns 2-15 Methodi adverse 00:00: st reaction 00 s to drug Codeine Drug Active Hives Also [facility] Allergy 9-11 gives him [facility] - 00:00: headaches Medical [...] s to drug Codeine Propensi Active Hives Jud ty to 8-06 Methodi adverse 00:00: st reaction 00 s to drug Hydrocod Propensi Active Hives, [place] one-Acet ty to Itching 2-28 Methodi aminophe adverse 00:00: st n reaction 00 s to drug Family History Family Member Diagnosis Comments Start Date Stop Date Source Natural father No Known Problem [facility] Natural mother Heart disease [facility] Natural mother Hypertension [facility] Natural mother Diabetes Jud Me thodist Natural mother Hypertension Jud [facility] Social History Social Habit Start Date Stop Date Quantity Comments Source History SDOH [facility] - [facility] Std Drinks Medica l Center History SDOH [facility] - Alcohol Binge Medical [facility] ter History of tobacco Cigarette Smoker Jud use [facility] Sex Assigned At Jud [facility] Exposure to Not sure Jud SARS-CoV-2 (event) Method ist Cigarettes smoked 2019-07-06 2019-07-06 Jud current (pack per 00:00:00 00:00:[address] day) - Reported Alcohol intake 2019-07-06 2019-07-06 Current Jud 00:00:00 00:00:00 non-drinker of [facility] alcohol (finding) History SDOH 2019-01-06 2019-01-[address] [facility] - Alcohol Frequency 00:00:00 00:00:00 [facility] Tobacco Comment 2019-01-06 2019-01-06 smokes [address] [facility] - 00:00:00 00:00:00 day, started Medical [facility] again 3 years ago Smoking Status Start Date Stop Date Source Current every day smoker 2019-07-06 00:00:00 Ferdinand hernández [facility] Medications Ordered Filled Start Stop Current Ordering [...] st capsule 04 :00 every morning. citalopram 2019-0 2020- No 20mg QD Take 20 mg Olea (CeleXA) 20 3-20 03-20 by mouth Met hodi MG tablet 17:37: 00:[address] 04 :00 lisinopril 2019-0 2020- No 20mg QD Take 20 mg [place] (PRINIVIL,Z 3-20 03-20 by mouth Met hodi ESTRIL) 20 17:37: 00:[address] mg tablet 04 :00 clopidogrel 2019- 2020- No 75mg QD Take 75 mg [facility] (PLAVIX) 75 3-15 07-20 by mouth Met hodi mg tablet 17:37: 00:[address] 04 :00 gabapentin 2019- 2020- No 1200mg QD Take 1,200 [place] (NEURONTIN) 3-20 -20 mg by Method i 300 mg 17:37: 00:[address] capsule 04 :00 every evening. ibuprofen 2019- No 400mg Q6H Take 400 [place] (ADVIL,MOTR -20 -20 mg by Method i IN) 200 MG 17:37: 00:[address] tablet 04 :00 every 6 (six) hours as needed for mild pain. aspirin 325 2019- 2020- No 325mg Take 325 Olea MG tablet -15 07-20 mg by Methodi 17:37: 00:[address] 04 :00 daily. atenolol 2019- 2020- No 50mg QD Take 50 mg [place] (TENORMIN) 07-15-20 by mouth Meth susi 50 MG 12:21: 00:[address] tablet 02 :00 atenoloL 2019-2019- No 50mg QD Take 1 [place] (TENORMIN) 07-15- tablet (50 Me thodi 50 MG 00:00: 23:59 mg total) st tablet 00 :00 by mouth daily for 30 days. citalopram 2019-2019- No 20mg QD Take 1 [place] (CeleXA) 20 07-15- tablet (20 M ethodi MG tablet 00:00: 23:59 mg total) st 00 :00 by mouth daily for 30 days. gabapentin 2019-2019- No 300mg QD Take 0.5 [place] (NEURONTIN) 07-15-19 tablets Meth susi 600 mg 00:00: 23:59 ([address] tablet 00 :00 total) by mouth nightly for 30 days. simvastatin 2019- 2020- No 40mg QD Take 0.5 [place] (ZOCOR) 80 -15 08- tablets Metho di MG tablet 00:00: 23:59 ([address] 00 :00 total) by mouth nightly for 30 days. brimonidine 2019-2019- No 1[drp] Q.[id number] Administer Ole[place] (ALPHAGAN) 07-15 [id number] 1 drop Methodi 0.15 % 00:00: 23:[address] ophthalmic 00 :00 left eye solution every 8 (eight) hours for 30 days. calcium 2019-2019- No 667mg Q.[id number] Take 1 [place] acetate,tate -08-14 [id number] capsule Methodi sphat bind, 00:00: 23:59 3D ([address] (PHOSLO) 00 :00 total) by 667 mg mouth 3 capsule (three) times a day with meals for 30 days. dorzolamide 2019-2019- No 1[drp] Q.5D Administer Olea -timolol -20 08-14 1 drop Methodi (COSOPT) 00:00: 23:59 into [...] mouth tablet daily for 30 days. latanoprost 2019-0 2020- No 1[drp] QD Administer Olea (XALATAN) 07-15 1 drop Methodi 0.005 % 00:00: 23:[address] ophthalmic 00 :00 left eye solution nightly for 30 days. levETIRAcet 2020-0 2020- No 250mg Q.5D Take 1 [place] am (KEPPRA) 07-15 tablet Metho di 250 MG 00:00: 23:59 ([address] tablet 00 :00 total) by mouth 2 (two) times a day for 30 days. methocarbam 2019-0 2020- No 500mg Q.[id number] Take 1 Jud oL 07-15 [id number] tablet Method i (ROBAXIN) 00:00: 23:59 3D ([address] 500 MG 00 :00 total) by tablet mouth 3 (three) times a day as needed for muscle spasms for up to 30 days. nystatin 2019-0 2020- No Q.5D Apply Jud (MYCOSTATIN 07-15 topically Me thodi ) 100,000 00:00: 23:59 2 (two) st unit/gram 00 :00 times a powder day for 30 days. polyethylen 2019-0 2020- No 17g QD Take 17 g Jud e glycol 07-15 by mouth Method i (MIRALAX) 00:00: 23:[address] 17 gram 00 :00 30 days. packet riFAXimin 2019-0 2020- No 550mg Q.5D Take 1 [place] (XIFAXAN) 07-15 tablet Methodi 550 mg 00:00: 23:59 ([address] tablet 00 :00 total) by mouth 2 (two) times a day for 30 days. sevelamer 2019-0 2020- No 800mg Q.[id number] Take 1 Jud (RENVELA) 07-15 [id number] tablet M ethodi 800 mg 00:00: 23:59 3D ([address] tablet 00 :00 total) by mouth 3 (three) times a day with meals for 30 days. mineral 2020-0 2020- No QD Administer Ferdinand ston oil/petrola 07-15 to both Meth susi john,white 00:00: 23:[address] (artificial 00 :00 nightly as tears) needed ointment (itching/d ry eyes) for up to 30 days. insulin 2019-0 2020- No 3U QD Inject 3 [place] lispro 3-20 04-19 Units Methodi (HumaLOG) 00:00: 23:[address] 100 unit/mL 00 :00 skin injection nightly for 30 days. metoprolol 2019-0 Yes 50mg QD Take 1 [facility] (TOPROL-XL) 9-17 tablet (50 Tabby kes - 50 MG 24 hr 00:00: mg total) M edical tablet 00 by mouth Center daily. furosemide 2019-0 Yes 20mg QD Take 1 [facility] [...] mg tablet 18:07: daily. Medica l 00 [place] simvastatin 2019-0 Yes 80mg QD Take [address] (ZOCOR) 80 9-11 by mouth [facility] - MG tablet 18:07: daily. Medica l 00 [place] spironolact 2019-0 Yes 25mg QD Take [address] one 9-11 by mouth [facility] - (ALDACTONE) 18:07: daily. Medi warren 25 MG 00 Center tablet levETIRAcet 2019-0 Yes 500mg QD Take [address] am (KEPPRA) 9-11 mg by [facility] - 500 MG 18:07: mouth Medical tablet 00 daily. Center insulin 2019-0 Yes 80U Inject 80 [facility] [...] MG tablet 18:06: daily. Medica l 59 Center gabapentin Yes 300mg QD Take [address] (NEURONTIN) 9-11 mg by [facility] - 300 MG 18:06: mouth Medical capsule 59 daily. Center ergocalcife 2017-04- No [id number] Q7D Take 1 [place] rol 06-05 [...] QD Take 50 mg [place] (TENORMIN) 2-07 03-20 by mouth Meth susi 50 MG 00:00: 00:[address] tablet 00 :00 citalopram 2019- No 20mg QD Take 20 mg Ole[place] (CeleXA) 20 8-09 03-20 by mouth Met hodi MG tablet [...] Time Observation Value Comments Source Systolic blood 2019-12-28 22:43:00 122 mm[Hg] Ismaelto n [facility] pressure Diastolic blood 2019-12-28 22:43:00 73 mm[Hg] Ismaelt on [facility] pressure Heart rate 2019-12-28 22:43:00 74 /min Lefty Johnson Respiratory rate 2019-12-28 22:43:00 16 /min Ismael Johnson Oxygen saturation in 2019-12-28 22:43:00 94 /min Lefty Johnson Arterial blood by Pulse oximetry Body temperature 2019-12-28 17:21:55 37.5 Yesi Ismael Johnson Body height 2019-07-06 13:11:00 170.2 cm Lefty Johnson Body weight 2019-07-06 13:11:00 96.163 kg Lefty Johnson BMI 2019-07-06 13:11:00 33.20 kg/m2 Lefty Johnson Procedures Procedure Date / Time Performing Clinician Source Performed CT CHEST WO CONTRAST 2019-12-28 21:29:58 Tu, Kelvin Johnson CT HEAD WO CONTRAST 2019-12-28 21:28:46 Tu, Kelvin Johnson XR CHEST 1 VW PORTABLE 2019-12-28 20:55:21 Tu, Kelvin Johnson ECG ED PRELIMINARY 2019-12-28 20:54:49 Tu, Kelvin Johnson INTERPRETATION HC COMPLETE BLD COUNT 2019-12-28 19:16:00 Tu, Kelvin Johnson W/AUTO DIFF COMPREHENSIVE METABOLIC 2019-12-28 19:16:00 Tu, Kelvin Johnson PANEL TROPONIN 2019-12-28 19:16:00 Tu, Kelvin Johnson B NATRIURETIC PEPTIDE 2019-12-28 19:16:00 Tu, Kelvin Johnson ESTIMATED GFR 2019-12-28 19:16:00 Tu, Kelvin Johnson ECG 12-LEAD 2019-12-28 18:32:49 Tu, Kelvin Johnson POC GLUCOSE 2019-07-16 12:29:00 Milton Ellington POC GLUCOSE 2019-07-16 08:40:00 Milton Ellington BASIC METABOLIC PANEL 2019-07-16 04:00:00 StephensYunier [facility] Wiley PHOSPHORUS LEVEL 2019-07-16 04:00:00 Angelo Yunier Johnson Wiley ESTIMATED GFR 2019-07-16 04:00:00 Angelo Yunier Lefty [place] ethodist Wiley HEMODIALYSIS 2019-07-16 00:05:39 Angelo Yunier Lefty [place] ethodist Wiley POC GLUCOSE 2019-07-15 21:51:00 Milton Ellington POC GLUCOSE 2019-07-15 16:56:00 Milton Ellington POC GLUCOSE 2019-07-15 11:31:00 Milton Ellington POC GLUCOSE 2019-07-15 07:55:00 Milton Ellington HC COMPLETE BLD COUNT 2019-07-15 05:30:00 Andrews Wright W/AUTO DIFF BASIC METABOLIC PANEL 2019-07-15 05:30:00 Andrews Wright ESTIMATED GFR 2019-07-15 05:30:00 Andrews Wright Mi thodist POC GLUCOSE 2019-07-14 21:08:00 Milton Ellington POC GLUCOSE 2019-07-14 16:55:00 Milton Ellington POC GLUCOSE 2019-07-14 13:49:00 Milton Ellington POC GLUCOSE 2019-07-14 11:48:00 Milton Ellington HEMODIALYSIS 2019-07-14 09:13:12 Stephens, Yunier Olea [facility] ethodist Wiley POC GLUCOSE 2019-07-14 08:13:00 Milton Ellington BASIC METABOLIC PANEL 2019-07-14 05:10:00 Yunier Stephens [facility] Wiley MAGNESIUM LEVEL 2019-07-14 05:10:00 StephensYunier ethodist Wiley PHOSPHORUS LEVEL 2019-07-14 05:10:00 Yunier Stephens Wiley HC COMPLETE BLD COUNT 2019-07-14 05:10:00 Yunier Stephens [facility] W/AUTO DIFF Wiley ESTIMATED GFR 2019-07-14 05:10:00 Yunier Stephens ethodist Wiley POC GLUCOSE 2019-07-14 02:44:00 Milton Ellington [facility] POC GLUCOSE 2019-07-13 21:27:00 Milton Ellington [facility] POC GLUCOSE 2019-07-13 16:22:00 Milton Ellington [facility] POC GLUCOSE 2019-07-13 13:08:00 Milton Ellington [facility] POC GLUCOSE 2019-07-13 07:55:00 Milton Ellington BASIC METABOLIC PANEL 2019-07-13 03:25:00 Yunier Stephens [facility] Wiley MAGNESIUM LEVEL 2019-07-13 03:25:00 Yunier Stephens ethodist Wiley PHOSPHORUS LEVEL 2019-07-13 03:25:00 Yunier Stephens Wiley ESTIMATED GFR 2019-07-13 03:25:00 Yunier Stephens ethodist Wiley POC GLUCOSE 2019-07-12 21:00:00 Milton Ellington [facility] POC GLUCOSE 2019-07-12 17:06:00 Milton Ellington [facility] POC GLUCOSE 2019-07-12 16:06:00 Milton Ellington [facility] POC GLUCOSE 2019-07-12 14:25:00 Milton Ellington [facility] POC GLUCOSE 2019-07-12 12:07:00 Milton Ellington HEMODIALYSIS 2019-07-12 08:45:38 Yunier Stephens ethodist Wiley POC GLUCOSE 2019-07-12 08:44:00 Milton Ellington [facility] BASIC METABOLIC PANEL 2019-07-12 04:00:00 Yunier Stephens [facility] Wiley MAGNESIUM LEVEL 2019-07-12 04:00:00 Yunier Stephens [...] COMPLETE BLD COUNT 2019-07-11 05:45:00 Yunier Stephens [facility] W/AUTO DIFF Wiley BASIC METABOLIC PANEL 2019-07-11 04:00:00 Yunier Stephens [facility] Wiley MAGNESIUM LEVEL 2019-07-11 04:00:00 Yunier Stephens ethodist Wiley PHOSPHORUS LEVEL 2019-07-11 04:00:00 Yunier Stephens Wiley ESTIMATED GFR 2019-07-11 04:00:00 Yunier Stephens ethodist Wiley POC GLUCOSE 2019-07-11 00:11:00 Milton Ellington [facility] POC GLUCOSE 2019-07-10 22:12:00 Milton Ellington [facility] POC GLUCOSE 2019-07-10 17:24:00 Milton Ellington BASIC METABOLIC PANEL 2019-07-10 13:40:00 Yunier Stephens [facility] Wiley MAGNESIUM LEVEL 2019-07-10 13:40:00 Yunier Stephens ethodist Wiley PHOSPHORUS LEVEL 2019-07-10 13:40:00 Yunier Stephens Wiley HC COMPLETE BLD COUNT 2019-07-10 13:40:00 Yunier Stephens [facility] W/AUTO DIFF Wiley FERRITIN LEVEL 2019-07-10 13:40:00 Yunier Stephens ethodist Wilye TOTAL IRON BINDING CAPACITY 2019-07-10 13:40:00 Angelo Tim Johnson Wiley ESTIMATED GFR 2019-07-10 13:40:00 Stephens, Yunier Olea [facility] ethodist Wiley POC GLUCOSE 2019-07-10 12:34:00 Milton Ellington HEMODIALYSIS 2019-07-10 11:22:47 Angelo Yunier Olea [facility] ethodist Wiley POC [...] Ellington POC GLUCOSE 2019-07-08 13:42:00 Milton Ellington [facility] POC GLUCOSE 2019-07-08 07:57:00 Milton Ellington HEPATIC FUNCTION PANEL 2019-07-08 04:00:00 Yris Lagos [facility] BASIC METABOLIC PANEL 2019-07-08 04:00:00 Yunier Stephens [facility] Wiely MAGNESIUM LEVEL 2019-07-08 04:00:00 Yunier Stephens ethodist Wiley PHOSPHORUS LEVEL 2019-07-08 04:00:00 Yunier Stephens Wiley ESTIMATED GFR 2019-07-08 04:00:00 Yris Lagos Me thodist POC GLUCOSE 2019-07-07 21:30:00 Milton Ellington HYPERSENSITIVITY 2019-07-07 17:30:00 [facility] Met gurjit PNEUMONITIS II Yoandy POC GLUCOSE 2019-07-07 17:19:00 Milton Ellington IMMUNOGLOBULIN G 2019-07-07 16:11:00 [facility] Met hodist Yoandy ANTI-NEUTROPHILIC 2019-07-07 14:30:00 Yunier Stephens CYTOPLASMIC ABS PANEL Wiley SS-B ANTIBODY 2019-07-07 14:30:00 [facility] Meth odist Yoandy CENTROMERE ANTIBODY 2019-07-07 14:30:00 [facility] Yoandy DOUBLE-STRANDED DNA (DSDNA) 2019-07-07 14:30:00 Tim Stephens ANTIBODIES, CRITHIDIA Wiley POC GLUCOSE 2019-07-07 12:08:00 Milton Ellington POC GLUCOSE 2019-07-07 07:41:00 Milton Ellington HEPATIC FUNCTION PANEL 2019-07-07 04:00:00 Yris Lagos BASIC METABOLIC PANEL 2019-07-07 04:00:00 Yunier Stephens Wiley MAGNESIUM LEVEL 2019-07-07 04:00:00 Yunier Stephens M ethodist Wiley PHOSPHORUS LEVEL 2019-07-07 04:00:00 Yunier [...] HEPATIC FUNCTION PANEL 2019-07-06 05:20:00 Yris Lagos [facility] PROTHROMBIN TIME WITH INR 2019-07-06 05:20:00 Yris Lagos HC COMPLETE BLD COUNT 2019-07-06 05:20:00 Yris Lagos [facility] W/AUTO DIFF C4 COMPLEMENT COMPONENT 2019-07-06 05:20:00 Yunier Stephens [facility] Wiley HIV AG/AB COMBINATION 2019-07-06 05:20:00 Yunier Stephens [facility] Wiley RHEUMATOID FACTOR 2019-07-06 05:20:00 Yunier Stephens Wiley BASIC METABOLIC PANEL 2019-07-06 05:20:00 Yunier Stephens [facility] Wiley MAGNESIUM LEVEL 2019-07-06 05:20:00 Yunier Stephens M ethodist Wiley PHOSPHORUS LEVEL 2019-07-06 05:20:00 Yunier Stephens Wiley ESTIMATED GFR 2019-07-06 05:20:00 Yris Lagos Me thodist POC GLUCOSE 2019-07-06 04:50:00 Milton Ellington POC GLUCOSE 2019-07-05 21:41:00 Milton Ellington POC GLUCOSE 2019-07-05 18:11:00 Milton Ellingtno POC GLUCOSE 2019-07-05 16:19:00 Milton Ellington POC GLUCOSE 2019-07-05 12:39:00 Milton Ellington TTE COMPLETE, WO CONTRAST, 2019-07-05 09:25:06 Milton Ellington W DOPPLER ([id number]) POC GLUCOSE 2019-07-05 08:17:00 Milton Ellington BASIC METABOLIC PANEL 2019-07-05 05:14:00 Yunier Stephens [facility] Wiley MAGNESIUM LEVEL 2019-07-05 05:14:00 StephensYunier ethodist Wiley PHOSPHORUS LEVEL 2019-07-05 05:14:00 Yunier Stephens [facility] Wiley VANCOMYCIN LEVEL, RANDOM 2019-07-05 05:14:00 Milton Ellington ESTIMATED GFR 2019-07-05 05:14:00 Milton Ellington HEPATIC FUNCTION PANEL 2019-07-05 05:14:00 Milton Ellington [facility] POC GLUCOSE 2019-07-04 21:44:00 Milton Ellington [facility] POC GLUCOSE 2019-07-04 17:22:00 Milton Ellington [facility] POC GLUCOSE 2019-07-04 15:52:00 Milton Ellington [facility] POC GLUCOSE 2019-07-04 11:56:00 Milton Ellington [facility] POC GLUCOSE 2019-07-04 07:49:00 Milton Ellington BASIC METABOLIC PANEL 2019-07-04 05:16:00 Yunier Stephens [facility] Wiley MAGNESIUM LEVEL 2019-07-04 05:16:00 Yunier Stephens ethodist Wiley PHOSPHORUS LEVEL 2019-07-04 05:16:00 Yunier Stephens Iwley ESTIMATED GFR 2019-07-04 05:16:00 Yunier Stephens ethodist Wiley POC GLUCOSE 2019-07-03 21:52:00 Milton Ellington POC GLUCOSE 2019-07-03 16:16:00 Milton Ellington [facility] POC GLUCOSE 2019-07-03 12:31:00 Milton Ellington [facility] POC GLUCOSE 2019-07-03 11:50:00 Milton Ellington [facility] POC GLUCOSE 2019-07-03 07:48:00 Milton Ellington BASIC METABOLIC PANEL 2019-07-03 04:00:00 Yunier Stephens [facility] Wiley MAGNESIUM LEVEL 2019-07-03 04:00:00 Yunier Stephens ethodist Wiley PHOSPHORUS LEVEL 2019-07-03 04:00:00 StephensYunier Wiley VANCOMYCIN LEVEL, RANDOM 2019-07-03 04:00:00 Milton Ellington ESTIMATED GFR 2019-07-03 04:00:00 StephensYunier ethodist Wiley POC GLUCOSE 2019-07-02 21:29:00 Milton Ellington POC GLUCOSE 2019-07-02 18:48:00 Milton Ellington BASIC METABOLIC PANEL 2019-07-02 16:05:00 StephensYunier Wiley ESTIMATED GFR 2019-07-02 16:05:00 StephensYunier ethodist Wiley POC GLUCOSE 2019-07-02 16:03:00 Milton Ellington VENIPUNC NEED PHYS SKILL,DX 2019-07-02 14:59:18 Kaykay Rain OR RX POC GLUCOSE 2019-07-02 11:52:00 Milton Ellington POC GLUCOSE 2019-07-02 08:44:00 Milton Ellington VANCOMYCIN LEVEL, RANDOM 2019-07-02 04:00:00 Milton Ellington BASIC METABOLIC PANEL 2019-07-02 04:00:00 StephesnYunier Wiley MAGNESIUM LEVEL 2019-07-02 04:00:00 Yunier Stephens [...] [place] BASIC METABOLIC PANEL 2019-07-01 04:00:00 StephensYunier Wiley MAGNESIUM LEVEL 2019-07-01 04:00:00 Angelo Yunier Olea [facility] ethodist Wiley PHOSPHORUS LEVEL 2019-07-01 04:00:00 Yunier Stephens Wiley HEPATIC FUNCTION PANEL 2019-07-01 04:00:00 Yris Lagos ESTIMATED GFR 2019-07-01 04:00:00 Stephens, Yunier Olea [facility] ethodist Wiley POC GLUCOSE 2019-06-30 23:36:00 Milton Ellington POC GLUCOSE 2019-06-30 21:09:00 Milton Ellington POC GLUCOSE 2019-06-30 17:15:00 Milton Ellington POC GLUCOSE 2019-06-30 14:40:00 Milton Ellington POC GLUCOSE 2019-06-30 11:58:00 Mliton Ellington SURGICAL PATHOLOGY REQUEST 2019-06-30 11:36:00 Milton Ellington POC GLUCOSE 2019-06-30 10:00:00 Milton Ellington IR TRANSJUGULAR LIVER 2019-06-30 09:39:34 Yris Lagos BIOPSY BASIC METABOLIC PANEL 2019-06-30 04:03:00 Yunier Stephens Wiley MAGNESIUM LEVEL 2019-06-30 04:03:00 Angelo Yunier [place] ethodist Wiley PHOSPHORUS LEVEL 2019-06-30 04:03:00 Yunier [...] COMPLETE BLD COUNT 2019-06-29 04:54:00 Yunier Stephens [facility] W/AUTO DIFF Wiley VANCOMYCIN LEVEL, RANDOM 2019-06-29 04:54:00 Milton Ellington HEPATIC FUNCTION PANEL 2019-06-29 04:54:00 Yris Lagos ESTIMATED GFR 2019-06-29 04:54:00 Yris Lagos thodist POC GLUCOSE 2019-06-28 20:33:00 Milton Ellington POC GLUCOSE 2019-06-28 16:06:00 Milton Ellington POC GLUCOSE 2019-06-28 12:29:00 Milton Ellington HEPATIC FUNCTION PANEL 2019-06-28 12:23:00 Yris Lagos ECG 12-LEAD 2019-06-28 09:41:10 Milton Ellington POC GLUCOSE 2019-06-28 09:14:00 Milton Ellington TROPONIN 2019-06-28 09:13:00 Milton Ellington HEPATIC FUNCTION PANEL 2019-06-28 09:13:00 Milton Ellington [facility] BASIC METABOLIC PANEL 2019-06-28 05:22:00 Yunier Stephens [facility] Wiley MAGNESIUM LEVEL 2019-06-28 05:22:00 Yunier Stephens ethodist Wiley PHOSPHORUS LEVEL 2019-06-28 05:22:00 Yunier Stephens Wiley VANCOMYCIN LEVEL, RANDOM 2019-06-28 05:22:00 Milton Ellington ESTIMATED GFR 2019-06-28 05:22:00 Milton Ellington POC GLUCOSE 2019-06-27 21:03:00 Milton Ellington POC GLUCOSE 2019-06-27 17:04:00 Milton Ellingtonist POC GLUCOSE 2019-06-27 14:07:00 Milton Ellington POC GLUCOSE 2019-06-27 11:57:00 Milton Ellington POC GLUCOSE 2019-06-27 08:26:00 Milton Ellington ECG 12-LEAD 2019-06-27 08:13:50 Usha Oquendo odist BASIC METABOLIC PANEL 2019-06-27 05:14:00 Yunier Stephens Wiley MAGNESIUM LEVEL 2019-06-27 05:14:00 Yunier Stephens ethodist Wiley PHOSPHORUS LEVEL 2019-06-27 05:14:00 Yunier Stephens Wiley VANCOMYCIN LEVEL, RANDOM 2019-06-27 05:14:00 Milton Ellington ESTIMATED GFR 2019-06-27 05:14:00 Milton Ellington POC GLUCOSE 2019-06-26 21:21:00 Milton Ellingtonist POC GLUCOSE 2019-06-26 19:41:00 Milton Ellingtonist POC GLUCOSE 2019-06-26 19:12:00 Milton Ellington ULTRAFILTRATION 2019-06-26 13:39:23 Andrews Wright Mi thodist POC GLUCOSE 2019-06-26 12:05:00 Milton Ellingtonist POC GLUCOSE 2019-06-26 08:54:00 Milton Ellington BASIC METABOLIC PANEL 2019-06-26 06:25:00 Yunier Stephens [employer] MAGNESIUM LEVEL 2019-06-26 06:25:00 Yunier Stephens [employer] PHOSPHORUS LEVEL 2019-06-26 06:25:00 Yunier Stephens [employer] HC COMPLETE BLD COUNT 2019-06-26 06:25:00 Yunier Stephensn [employer] W/AUTO DIFF [employer] VANCOMYCIN LEVEL, RANDOM 2019-06-26 06:25:00 Milton Ellington ESTIMATED GFR 2019-06-26 06:25:00 Milton Ellington POC GLUCOSE 2019-06-25 23:39:00 Milton Ellington HEMODIALYSIS 2019-06-25 21:44:30 Andrews Wright Mi thodist POC GLUCOSE 2019-06-25 21:14:00 Milton Ellington BASIC METABOLIC PANEL 2019-06-25 18:45:00 Yunier Stephens Wiley PHOSPHORUS LEVEL 2019-06-25 18:45:00 Yunier Stephens Wiley ESTIMATED GFR 2019-06-25 18:45:00 Yunier Stephens ethodist Wiley POC GLUCOSE 2019-06-25 15:45:00 Milton Ellington POC GLUCOSE 2019-06-25 11:30:00 Milton Ellingtonist POC GLUCOSE 2019-06-25 07:47:00 Milton Ellington POC GLUCOSE 2019-06-25 00:05:00 Milton Ellington POC GLUCOSE 2019-06-24 21:12:00 Milton Ellington POC GLUCOSE 2019-06-24 16:22:00 Milton Ellington POC GLUCOSE 2019-06-24 13:17:00 Milton Ellington HEMODIALYSIS 2019-06-24 11:11:02 Yunier Stephens ethodist Wiley POC GLUCOSE 2019-06-24 07:35:00 Milton Ellington BASIC METABOLIC PANEL 2019-06-24 04:00:00 Yunier Setphens Wiley MAGNESIUM LEVEL 2019-06-24 04:00:00 Yunier Stephens ethodist Wiley PHOSPHORUS LEVEL 2019-06-24 04:00:00 Yunier Stephens Wiley HEPATIC FUNCTION PANEL 2019-06-24 04:00:00 Yirs Lagos HC COMPLETE BLD COUNT 2019-06-24 04:00:00 Stephens, Yunier hernández [facility] W/AUTO DIFF Wiley ESTIMATED GFR 2019-06-24 04:00:00 StephensYunier ethodist Wiley POC GLUCOSE 2019-06-23 18:00:00 Milton Ellington HEMODIALYSIS 2019-06-23 12:21:38 Yunier Stephens ethodist Wiley POC GLUCOSE 2019-06-23 11:18:00 Milton Ellington IR TUNNELED DIALYSIS 2019-06-23 10:03:03 Milton Ellington CATHETER PLACEMENT POC GLUCOSE 2019-06-23 09:54:00 Milton Ellington POC GLUCOSE 2019-06-23 08:19:00 Milton Ellington BASIC METABOLIC PANEL 2019-06-23 05:30:00 Yunier Stephens [facility] Wiley MAGNESIUM LEVEL 2019-06-23 05:30:00 Yunier Stephens ethodist Wiley PHOSPHORUS LEVEL 2019-06-23 05:30:00 Yunier Stephens Wiley HEPATIC FUNCTION PANEL 2019-06-23 05:30:00 Yris Lagos [facility] HC COMPLETE BLD COUNT 2019-06-23 05:30:00 Yunier Stephens [facility] W/AUTO DIFF Wiley ESTIMATED GFR 2019-06-23 05:30:00 Yunier Stephens ethodist Wiley POC GLUCOSE 2019-06-22 21:30:00 Milton Ellington POC GLUCOSE 2019-06-22 12:28:00 Milton Ellington POC GLUCOSE 2019-06-22 08:38:00 Milton Ellington BASIC METABOLIC PANEL 2019-06-22 04:30:00 Yunier Stephens [facility] Wiley MAGNESIUM LEVEL 2019-06-22 04:30:00 Yunier Stephens ethodist Wiley PHOSPHORUS LEVEL 2019-06-22 04:30:00 Yunier Stephens Wiley HC COMPLETE BLD COUNT 2019-06-22 04:30:00 Yunier Stephens W/AUTO DIFF Wiley HEPATIC FUNCTION PANEL 2019-06-22 04:30:00 Yris Lagos ESTIMATED GFR 2019-06-22 04:30:00 Yris Lagos Mi thodist POC GLUCOSE 2019-06-22 00:07:00 Milton Ellington POC GLUCOSE 2019-06-21 21:03:00 Milton Ellington POC GLUCOSE 2019-06-21 19:26:00 Milton Ellington POC GLUCOSE 2019-06-21 16:33:00 Milton Ellington XR ABDOMEN 1 VW PORTABLE 2019-06-21 16:08:00 Yris aLgos POC GLUCOSE 2019-06-21 11:46:00 Milton Ellington POC GLUCOSE 2019-06-21 08:15:00 Milton Ellington BASIC METABOLIC PANEL 2019-06-21 04:00:00 Yunier Stephens Wiley MAGNESIUM LEVEL 2019-06-21 04:00:00 Yunier Stephens ethodist Wiley PHOSPHORUS LEVEL 2019-06-21 04:00:00 Yunier Stephens Wiley ESTIMATED GFR 2019-06-21 04:00:00 Yunier Stephens ethodist Wiley POC GLUCOSE 2019-06-20 21:33:00 Milton Ellington AEROBIC CULTURE 2019-06-20 17:32:00 Milton Ellington GRAM STAIN 2019-06-20 17:32:00 Milton Ellignton POC GLUCOSE 2019-06-20 15:51:00 Milton Ellington POC GLUCOSE 2019-06-20 12:25:00 Milton Ellington POC GLUCOSE 2019-06-20 07:34:00 Milton Ellington HEPATIC FUNCTION PANEL 2019-06-20 04:00:00 Yris Lagos BASIC METABOLIC PANEL 2019-06-20 04:00:00 Stephens, RosmeryNayanashlyn hernández [facility] Wiley MAGNESIUM LEVEL 2019-06-20 04:00:00 Angelo RosmeryNayanashlyn Madrid ethodist Wiley PHOSPHORUS LEVEL 2019-06-20 04:00:00 Angelo Yunier Olea [facility] Wiley ESTIMATED GFR 2019-06-20 04:00:00 Yris Lagosodist POC GLUCOSE 2019-06-19 21:31:00 Milton Ellington CREATININE LEVEL, URINE, 2019-06-19 19:06:00 Javan Mcdowell RANDOM PROTEIN, URINE, RANDOM 2019-06-19 19:06:00 Javan Mcdowell POC GLUCOSE 2019-06-19 16:08:00 Milton Ellington POC GLUCOSE 2019-06-19 12:34:00 Milton Ellignton POC GLUCOSE 2019-06-19 07:42:00 Milton Ellington ANTI MITOCHONDRIA SCREEN 2019-06-19 00:00:00 Yris Lagos HEPATIC FUNCTION PANEL 2019-06-19 00:00:00 Yris Lagos [facility] BASIC METABOLIC PANEL 2019-06-19 00:00:00 StephensRosmeryNayanashlyn hernández [facility] Wiley MAGNESIUM LEVEL 2019-06-19 00:00:00 Stephens, Yunier Madrid ethodist Wiley PHOSPHORUS LEVEL 2019-06-19 00:00:00 Yunier Stephens Wiley ESTIMATED GFR 2019-06-19 00:00:00 Stephens, RosmeryNayanashlyn Olea Mercy ethodist Wiley POC GLUCOSE 2019-06-18 21:10:00 Milton Ellington POC GLUCOSE 2019-06-18 16:07:00 Milton Ellington POC GLUCOSE 2019-06-18 11:14:00 Milton Ellington POC GLUCOSE 2019-06-18 07:29:00 Milton Ellington URINE CULTURE 2019-06-18 07:24:00 Usha Oquendo odjose URINALYSIS SCREEN AND 2019-06-18 05:30:00 Usha Oquendo [facility] MICROSCOPY, WITH REFLEX TO CULTURE PROTHROMBIN TIME WITH INR 2019-06-18 05:00:00 Yris Lagos HC COMPLETE BLD COUNT 2019-06-18 05:00:00 Yunier Stephens [facility] W/AUTO DIFF Wiley HEPATITIS B SURFACE AB, 2019-06-18 05:00:00 Yris Lagos QUANTITATIVE AMMONIA LEVEL 2019-06-18 05:00:00 Yris Lagos thodist HEPATIC FUNCTION PANEL 2019-06-18 04:00:00 Yris Lagos BASIC METABOLIC PANEL 2019-06-18 04:00:00 Yunier Stephens Wiley MAGNESIUM LEVEL 2019-06-18 04:00:00 Yunier Stephens ethodist Wiley PHOSPHORUS LEVEL 2019-06-18 04:00:00 Yunier Stephens Wiley HEPATITIS A ANTIBODY IGM 2019-06-18 04:00:00 Yris Lagos HEPATITIS B CORE ANTIBODY 2019-06-18 04:00:00 Yris Lagos IGM HEPATITIS B CORE ANTIBODY 2019-06-18 04:00:00 Yris Lagos TOTAL HEPATITIS B SURFACE 2019-06-18 04:00:00 Yris Lagos [facility] ANTIBODY HEPATITIS B SURFACE ANTIGEN 2019-06-18 04:00:00 Lore Lagos HEPATITIS C ANTIBODY 2019-06-18 04:00:00 Yris aLgos [facility] CERULOPLASMIN LEVEL 2019-06-18 04:00:00 Yris Lagos [facility] ALPHA FETOPROTEIN 2019-06-18 04:00:00 Yris Lagos ALPHA-1 ANTITRYPSIN LEVEL 2019-06-18 04:00:00 Yris Lagos ANNE 2019-06-18 04:00:00 Yris Lagos Mi thodist GGT 2019-06-18 04:00:00 Yris Lagos Mi thodist ESTIMATED GFR 2019-06-18 04:00:00 Yris Lagos Me thodist POC GLUCOSE 2019-06-17 21:17:00 Mliton Ellington POC GLUCOSE 2019-06-17 17:07:00 Milton Ellington US ABDOMEN COMPLETE 2019-06-17 16:48:45 Demond Yris Smith n [facility] US ABDOMINAL DOPPLER 2019-06-17 16:48:35 Yris Lagos on [facility] US RENAL 2019-06-17 14:26:40 Usha Oquendo Meth odist POC GLUCOSE 2019-06-17 11:38:00 Milton Ellington [facility] POC GLUCOSE 2019-06-17 08:22:00 Milton Ellington CELIAC [...] Stephens ethodist Wiley PHOSPHORUS LEVEL 2019-06-16 04:00:00 Tani StephensHenry Johnson Wiley ESTIMATED GFR 2019-06-16 04:00:00 Tani StephensHenry Olea Mercy ethodist Wiley POC GLUCOSE 2019-06-15 20:49:00 Milton Ellington POC GLUCOSE 2019-06-15 16:31:00 Milton Ellington FECAL CALPROTECTIN 2019-06-15 16:30:00 Sharon Loving SPIROMETRY, DIFFUSION, LUNG 2019-06-15 14:29:17 Milton Ellington VOLUMES POC GLUCOSE 2019-06-15 12:27:00 Milton Ellington US CAROTID DUPLEX BILATERAL 2019-06-15 11:31:50 Tashia Alfredo POC GLUCOSE 2019-06-15 07:24:00 Milton Ellington HC COMPLETE BLD COUNT 2019-06-15 03:38:00 Milton Ellington W/AUTO DIFF BASIC METABOLIC PANEL 2019-06-15 03:38:00 StephensYunier Wiley MAGNESIUM LEVEL 2019-06-15 03:38:00 Angelo Yunier Olea Mercy ethodist Wiley PHOSPHORUS LEVEL 2019-06-15 03:38:00 StephensYunier Wiley ESTIMATED GFR 2019-06-15 03:38:00 Angelo Yunier Olea Mercy ethodist Wiley POC GLUCOSE 2019-06-14 21:02:00 Milton [...] INTERPRETATION URINE CULTURE 2019-06-12 19:49:00 Guillermo Jeffery Mi thodist HC COMPLETE BLD COUNT 2019-06-12 19:49:00 Guillermo Jeffery W/AUTO DIFF COMPREHENSIVE METABOLIC 2019-06-12 19:49:00 Guillermo [...] CULTURE ECG 12-LEAD 2019-06-12 19:42:16 Guillermo Jeffery Mi thodist RHYTHM STRIP - SCAN 2019-01-12 15:42:05 Provider, Default [facility] Plan of Care Planned Activity Planned Date Details Comments Source Future Scheduled 2021-06-30 DIABETIC RETINAL EYE Ferdinand hernández [facility] Test 00:00:00 EXAM [code = DIABETIC RETINAL EYE EXAM] Future Scheduled 2019-12-28 INFLUENZA VACCINE [place] [facility] 00:00:00 [code = INFLUENZA VACCINE] Future Scheduled 2017-07-30 COLONOSCOPY SCREENING Haris uston [facility] Test 00:00:00 [code = COLONOSCOPY SCREENING] Future Scheduled 2017-07-30 SHINGLES VACCINES [place] [facility] Test 00:00:00 (#1) [code = SHINGLES VACCINES (#1)] Future Scheduled 1977-07-30 DIABETIC FOOT EXAM [place] [facility] Test 00:00:00 [code = DIABETIC FOOT EXAM] Encounters Start End Encounter Admission Attending Care Care Encounter Source Date/Time Date/Time Type Type Clinicians Facility Department ID 2020-01-07 2020-01-07 Letter NurseJonathan [facility] [id number] 00:00:00 00:00:00 (Out) Urgent HEALTH [id number] [place] [id number] [facility] [id number] Primary & 370 Specialty Care 2020-01-04 2020-01-04 [place] [employer] 2, Adc Lab [facility] [id number] 11:25:15 16:22:54 Visit Kathleen [id number] [place] [id number] [facility] [id number] nal 353 [facility] 2020-01-04 2020-01-04 Telephone Ke, [facility] [id number] 00:00:00 00:00:00 Sendil Michael Wang [id number] [place] [id number] Professio [phone] nal 059 [facility] 2019-12-28 2019-12-28 Emergency TU, YEN-TE [facility] [id number] Jud 00:00:00 00:00:[address] 2019-06-12 2019-07-16 Inpatient [facility] [id number] Jud 00:00:00 00:00:00 [place] [address] Results Test Description Test Time Test Comments Results Result Comments Source ECG 12 lead 2019-12-28 23:33:31 Test Item Value Reference Range Interpretation Comme nts Ventricular rate (test code = 253) 81 Atrial rate (test code = 255) 81 [place] interval (test code = 266) 134 QRSD interval (test code = 260) 136 QT interval (test code = 264) 440 QTC interval (test code = 265) 511 P axis 1 (test code = 267) 37 QRS axis 1 (test code = 268) 114 T wave axis (test code = 270) 5 EKG impression (test code = 273) Normal sinus rhythm-Right bundle b ranch block-Left posterior fascicular block-^^^ Bifascicular block ^^^-Abnormal ECG-In automated comparison with ECG of 28-JUN-2019 09:41,-Left posterior fascicular block is now seen- Olea MethodistCT Chest Wo [id number] 21:48:29Hm Interface, Radiology Results - 12/28/2019 9:51 PM CDTCT CHEST WO CONTRASTCLINICAL INDICA TION: coughTECHNIQUE: Multidetector CT imaging of the chest was performed without intravenous contrast with multiplanar reconstructions. CT imaging was performed with iterative reconstruction technique and/or automated exposure control to reduce radiation dose.COMPARISON: 07/11/2019 IMPRESSION:The lack of intravenous contrast partially limits evaluation.Lungs and large airways: Small bilateral pleural effusions. Some groundglass densities are seen of the pulmonary parenchyma, with interlobular septal thickening, compatible with mild vascular congestion/edema. No consolidations or pneumothorax.Some debris/aspirate is seen within the distal trachea and origin of the right mainstem bronchus. Left mainstem bronchus is patent.Heart and pericardium: Heart size is normal. Extensive coronary artery calcifications are identified. Small pericardial effusion. Distal tip of a vascular catheter terminatesin the cavoatrial junction. Mediastinum and catherine: No mass or hematoma. Lymph nodes: Some prominentmediastinal lymph nodes are seen without adenopathy by size criteria.Vasculature: Unremarkable on this noncontrast evaluation.Upper abdomen: Cirrhotic liver. Patient is status post cholecystectomy.Bones: No acute osseous abnormality. Mild degenerative change of the thoracic spine.Soft tissues: Mild anasarca. Some subcutaneous stranding is seen of the soft tissues anterior to the sternum. Subcutaneous stranding is seen anterior to the sternum in the midline, which may represent some subcutaneous bruising for cellulitis. Summary:Mild vascular congestion/edema with small bilateral pleural effusions .Some mild anasarca is identified. Subcutaneous stranding is seen anterior to the sternum in the midline, which may represent some subcutaneous bruising for cellulitis. [facility]-[id number] [facility] Head Wo [id number] 21:34:22 [facility], Radiology Results - 12/28/2019 9:37 PM CDTEXAM: CT HEAD WO CONTRASTCLINICAL HISTORY: headacheTECHNIQUE: Noncontrast enhanced images of the brain were obtained from the skull base to the vertex. Both soft tissue and bone reconstruction algorithms were performed. CT scans are performed using radiation dose reduction techniques (iterative reconstruction and/or automated exposurecontrol). 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 There is no evidence for acute intracranial hemorrhage, mass, mass effect, hydrocephalus, or extra-axial fluid collection.Orbits are unremarkable. Paranasal sinuses are clear. Mastoid air cells are normally pneumatized. Vascular calcifications are noted, most prominent within the bilateral cavernous ICAs. Osseous structures are intact.IMPRESSION:Minimal involutional changes as detailed with no CT evidence for acute intracranial abnormality.[id number] MethodistXR Chest 1 [id number] 20:56:20Hm Interface, Radiology Results 12/28/2019 8:59 PM CDTEXAMINATION: XR CHEST 1 PORTABLECLINICAL HISTORY: sobCOMPARISON: 06/12/2019.IMPRESSION:Right central venous catheter terminates overthe right atrium.Low lung volumes. Vascular crowding and/or congestion. No focal consolidation.No pleural effusion or pneumothorax. The cardiomediastinal silhouette is normal.No acute osseous abnormalities.[facility]-[id number] MethodistEC ED Preliminary Interpretation - Not an [id number] 20:54:49 Test Item Value Reference Range Interpretation Comments BRENT (test code = BRENT) Kelvin Palomino MD 12/30/2019 2:41 AMECG ED Preliminary Interpretation - Not an OrderPerformed by: Kelvin Palomino MDAuthorized by: Kelvin Palomino MD ECG reviewed by ED Physician in the absence of a wood furniture assembler: yes Interpretation: Interpretation: abnormal Rate: ECG rate: 81 ECG rate assessment: normal Rhythm: Rhythm: sinus rhythm Conduction: Conduction: abnormal Abnormal conduction: complete RBBB Lab Interpretation Abnormal (test code = 54421-8) Lefty JohnsonB natriuretic [id number] 20:16:55 Test Item Value Reference Range Interpretation Comments BNP (test code = 66005-3) 318 pg/mL 0-100 H Lab Interpretation (test code = Abnormal 58344-8) Lefty JohnsonYydxqsnfsOljwzgdx5419-38-62 20:16:40 Test Item Value Reference Range Interpretation Comments Troponin (test code 0.016 ng/mL 0-0.04 In patie nts suspected = 97511-1) of having a augusta cardial infarction, mara delcid with all other appro priate clinical measur es and actions includi ng ECG and other diagn ostics as appropriate, measure Ultra TnI at 0 hrs and at 3 hrs.Myocar dial infarction VERY LIKELYThe 0 hr TnI level is > 0.10 ng/mL -------- -------- -------- --------Myocard ial infarction LIKE LYThe 0 hr TnI level is > 0.04 ng/mL and 3 hr level is increased or de creased by at least 0.0 20 ng/mL -------- -------- -------- ---Myocardial infarction VERY UNLIKELYBoth th e 0 hr and 3 hr TnI le vels <= 0.04 ng/mL(with in normal limits) OR 0 hr is > 0.04 ng/mL and 3 hr is increased OR decreased by le ss than 0.020 ng/mL Lefty MethodistComprehensive metabolic [id number] 20:01:50 Test Item Value Reference Range Interpretation Comments Sodium (test code = 139 135- 148 mEq/L 2951-2) Potassium (test code = 5.3 3.5- 5.0 mEq/L H 2823-3) Chloride (test code = 97 98- 112 mEq/L L 2074-0) CO2 (test code = 2027-12) 27 24- 31 mEq/L Anion gap (test code = 15@ANIO 7- 15 mEq/L 36230-6) BUN (test code = 3094-0) 27 mg/dL 6-20 H Creatinine (test code = 3.84 mg/dL 0.7-1.2 H 2160-0) Glucose (test code = 252 mg/dL 65-99 H 2345-7) Calcium (test code = 8.8 mg/dL 8.3-10.2 71569-5) Protein (test code = 6.9 g/dL 6.3-8.3 -[place] n 2885-2) 4.6-7.0 g/dL1 week 4.4-7 .6 g/dL7 months-1y ear 5.1-7 .3 g/dL1-2 years 5.6-7 .5 g/dL>3 years 6.0-8 .0 g/sF50-058 6.3-8 .3 g/dL Albumin (test code = 2.7 g/dL 3.5-5 L 1751-7) A/G ratio (test code = 0.6 0.7-3.8 L 1759-0) Alkaline phosphatase 175 U/L 40-129 H (test code = 6768-6) AST (test code = 1920-8) 35 U/L 10-50 ALT (test code = 1742-6) 29 U/L 5-50 Total bilirubin (test 0.3 mg/dL 0-1.2 code = 1974-2) Lab Interpretation (test Abnormal code = 41471-6) Lfety MethodistEstimated [id number] 20:01:41 Test Item Value Reference Range Interpretation Comments Estimated GFR (test 17 mL/min/1.73 m2 Ev rowe Units code = 5488) InterpretationG 1 >=90 Cora l or highG2 60-89 Mildly decrease dG3a 45-59 Mil dly to moderately decr uxvuuT1y 30-44 Moderately to s everely decreasedG4 15-29 Severe ly decreasedG5 <15 Kidney jesica lureThe eGFR was calcul ated using the Chron ic Kidney Disease Epidemiology Collaboration ( CKD-EPI) equation. Interpretation is based on recommendati ons of the National Ki dney Foundation-Kidn ey Disease Outcome s Quality Initiat christa (NKF-KDOQI) pub lished in 2013. Lab Interpretation Abnormal (test code = 14713-9) Lefty MethodistCBC with platelet and [id number] 19:42:47 Test Item Value Reference Range Interpretation Comments WBC (test code = 59786-6) 5.65 4.50- 11.00 k/uL RBC (test code = 90824-1) 3.75 m/uL 4.4-6 L HGB (test code = 718-7) 12.7 g/dL 14-18 L HCT (test code = 4544-3) 36.6 % 41-51 L MCV (test code = 787-2) 97.6 fL 82-100 MCH (test code = 785-6) 33.9 pg 27-34 MCHC (test code = 786-4) 34.7 g/dL 31-37 RDW - SD (test code = 50.0 fL 37-55 51012-3) MPV (test code = 26048-0) 12.9 fL 8.8-13.2 Platelet count (test code 152 150- 400 k/uL = 97315-9) Nucleated RBC (test code 0.00 /100 WBC = 56719-7) Neutrophils (test code = 65.7 % 39-69 72468-4) Lymphocytes (test code = 24.6 % 25-45 L 02786-5) Monocytes (test code = 5.3 % 0-10 55029-8) Eosinophils (test code = 3.0 % 0-5 91611-4) Basophils (test code = 0.7 % 0-1 23732-9) Immature granulocytes 0.7 % 0-1 "Immat ure (test code = 28477-8) granul ocytes" (promyelocytes, myelocytes, metamyelocytes) Lab Interpretation (test Abnormal code = 70440-0) [facility] [id number] 12:30:05 Test Item Value Reference Range Interpretation Comments POC glucose (test code = 253 mg/dL 65-99 H Ope rator Name: 13938-1) Brewster RobymanuelClifford vice ID: [id number] able: [facility] 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 Interpretation (test Abnormal code = 88258-6) [facility] metabolic [id number] 07:23:50 Test Item Value Reference Range Interpretation Comments Sodium (test code = 2951-2) 142 135- 148 mEq/L Potassium (test code = 2823-3) 4.3 3.5- 5.0 mEq/L Chloride (test code = 2075-0) 105 98- 112 mEq/L CO2 (test code = 2027-9) 27 24- 31 mEq/L Anion gap (test code = 48175-4) 10@ANIO 7- 15 mEq/L BUN (test code = 3094-0) 46 mg/dL 6-20 H Creatinine (test code = 2160-0) 4.61 mg/dL 0.7-1.2 H Glucose (test code = 2345-7) 189 mg/dL 65-99 H Calcium (test code = 82936-1) 8.7 mg/dL 8.3-10.2 Lab Interpretation (test code = Abnormal 96377-1) Jud MethodistPhosphorus [id number] 07:23:49 Test Item Value Reference Range Interpretation Comments Phosphorus (test code = 2777-1) 4.3 mg/dL 2.4-4.5 Jud MethodistMagnesium [id number] 07:17:31 Test Item Value Reference Range Interpretation Comments Magnesium (test code = 51752-4) 1.9 mg/dL 1.6-2.6 Jud MethodistHypersensitivity pneumonitis [id number] 10:14:04 Test Item Value Reference Interpretation Comments Range Aspergillus flavus None Detected None-Detected Testing includes (test code = 75515-5) antibo dies directed at Aspergillus flavus, Aspergi llus fumigatus #2, Aspergillus fum igatus #3, Saccharomon ospora viridis, and Thermoactinomyc es candidus. Aspergillus fumigatus None Detected None-Detected #2 (test code = 52354-8) Aspergillus fumigatus None Detected None-Detected #3 (test code = 06998-1) Saccharomonospora None Detected None-Detected viridis (test code = 27907-4) Thermoactinomyces None Detected None-Detected Performe d by SRINIVAS barlow (test code = Terry hummel,500 26939-1) [place] [address] pqa [email or web address], Roberto Almaguer MD, La b. Director Thermoactinomyces NOT PERFORMED saccharii (test code = WITH THIS 27951-9) PANEL Jud MethodistHypersensitivity pneumonitis [id number] 01:53:46 Test Item Value Reference Interpretation Comments Range Aspergillus fumigatus None Detected None-Detected #1 (test code = 6808-0) Aspergillus fumigatus None Detected None-Detected #6 (test code = 6809-8) Aureobasidium None Detected None-Detected Testing incl narinder marquez (test code = antib odies directed 6810-6) at [facility] m pullulans, Aspergillus fum igatus #1, Aspergillus fumigatus #6, Micropolyspora faeni, [place] Serum an d Thermoactinomyc es vulgaris #1. [place] serum (test None Detected None-Detected code = 6733-0) Micropolyspora faeni None Detected None-Detected (test code = 6818-9) Thermoactinomyces None Detected None-Detected Performe d by ARUP vulgaris #1 (test code Labor atories,500 = 6821-3) Manuela Hansen [facility],[place] [address] tys .[email or web address] [email or web address], Roberto Almaguer MD, La b. Director Jud MethodistFerritin [id number] 14:34:03 Test Item Value Reference Range Interpretation Comments Ferritin level (test code = 2276-4) 214 ng/mL 30-400 Jud MethodistTotal iron binding [id number] 14:29:17 Test Item Value Reference Range Interpretation Comments Iron level (test code = 2498-4) 72 ug/dL 59-158 Iron binding capacity (test code = 298 ug/dL 985-399 3452-7) % Saturation (test code = 2502-3) 24.2 % 20-40 Jud MethodistAnti-neutrophilic cytoplasmic Abs [id number] 15:24:12 Test Item Value Reference Range Interpretation Comments ANCA screen (test code = 3472) Negative Negative Jud MethodistFL Modified Barium [id number] 15:02:46Hm Interface, Radiology Results - 07/09/2019 3:05 [...] refer to Speech Pathology report for further details.[id number] and approved by vice president of development/fellow: Eugenia Escamilla M.D.I, Adriana Morales MD, personally reviewed the images and resident's/fellow's findings and agree with the final report.Olea MethodistDNA Ab [id number] 14:55:49 Test Item Value Reference Range Interpretation Comments DNA Ab screen (test code = 1297) Not Detected Not-Detected Jud MethodistHepatic function [id number] 07:12:14 Test Item Value Reference Range Interpretation Comments Albumin (test code = 2.4 g/dL 3.5-5 L 175-7) Total bilirubin (test code <0.2 0-1.2 = 1974-) Bilirubin direct (test <0.2 0-0.3 code = 1967-7) Alkaline phosphatase (test 133 U/L 40-129 H code = 6768-6) Protein (test code = 6.9 g/dL 6.3-8.3 -[place] n 2885-2) 4.6-7.0 g /dL1 week 4.4-7.6 g/dL 7 months-1year 5.1-7.3 g/dL 1-2 years 5.6-7.5 g/dL>3 years 6.0-8.0 g/dP26-797 6.3-8. 3 g/dL ALT (test code = 1742-6) 20 U/L 5-50 AST (test code = 1920-8) 20 U/L 10-50 Lab Interpretation (test Abnormal code = 79854-8) Jud MethodistImmunoglobulin [id number] 18:32:35 Test Item Value Reference Range Interpretation Comments IgG (test code = 2465-3) 1005 mg/dL 700-1600 Jud MethodistCentromere [id number] 18:10:06 Test Item Value Reference Range Interpretation Comments Centromere antibody <0.2 0.0- 0.9 AI (test code = 8068-9) Centromere antibody Negative AI Anti-kyrie tromere interp (test code = antibodi es are found 72498-3) in patients wit h systemic sclero sis (SSc or sclerod obinna), especially for those with limited cu taneous or CREST syndro me. Anti-centromere antibodies may also be found in patien ts with other rheumatic or connective tiss ue diseases. Olea MethodistScl-70 blponqdg0687-90-11 18:10:06 Test Item Value Reference Range Interpretation Comments Scleroderma SCL-70 Ab <0.2 0.0- 0.9 AI (test code = 53614-6) Scl-70 antibody interp Negative AI Anti- Scl-70 (test code = 5268) (topoisom erase I) antibodies are found in patients with s ystemic sclerosis (SSc or scleroderma), a nd have been reported t o be predictive of d iffuse cutaneous invol vement. Anti-Scl-70 ant ibodies may also be pre sent in patients with s ystemic lupus erythemat osus (SLE). Olea MethodistSS-A wdzindyc5436-67-48 18:10:06 Test Item Value Reference Range Interpretation Comments Sjogren's SS-A <0.2 0.0- 0.9 AI antibody (test code = 45612-6) SS-A antibody interp Negative AI SS-A an tibody is (test code = 2235) sensitive for Sjogren's syndrome, but m ay also be positive with s ystemic lupus erythemat osus (SLE), and syst emic sclerosis. Olea MethodistSS-B hadnwckk5000-50-70 18:10:05 Test Item Value Reference Range Interpretation Comments Sjogren's SS-B <0.2 0.0- 0.9 AI antibody (test code = 3001) SS-B antibody interp Negative AI SS-B/La antibody is seen (test code = 2237) in patien ts with Sjogren syndrome, but m ay also be positive with s ystemic lupus erythemat osus (SLE), and syst emic sclerosis. Olea MethodistCT Cardiac Pflwcvig7960-08-73 19:51:26Hm Interface, Radiology Results - 07/06/2019 7:54 [...] characterization with CT of the chest is recommendedJud MethodistCv cta coronary arteries w contrast and ffr if ezrebg9036-92-92 17:59:00Interface, Radiology Results In - 07/06/2019 5:59 PM CDT Nuclear Cardiology and Cardiac CT [address] [place] [address] CTA Coronary Arteries ReportPat.Name: PAOLA ENGEL Pat.ID: [id number] .Date: 07/06/2019 Refer.MD: MILTON ELLINGTON MDExrebeca Time: 1:09:00 PMStudy Type:CTA Coronary Arteries Height: 67in Weight: 212lb BSA: 2.07 m2 Age: 4 1965,53Y Sex: MALE BP: 151/83 HR: 54 bpm Nuclear Tech:Samina Beyer, RT(R)(CT)Pat. Stat.:Inpatient Tape Vol: 33.2, CPT - 4: CCTA w Thoracic Aorta (NonCongenital) 12783;58414Qobjsgk Event ID:[id number] Order ID: [id number] Reason for Study:Pre-Op CABG, CAD History / Clinical:Coronary artery disease, Diabetes, Hyperlipidemia,Hypertension, S/P PCI 07/2007, Liver cirrhosis/Hepatitis CProcedures: CT Prospective(phases)Race: C SUMMARY: Technique: IV contrast was administered and sequential 0.[address] cutswere obtained through the chest using the Siemens Somatom Force CTscanner. Image post-processing consisting of multiplanar and 3Dreconstructions were performed using the Cartesianpaceworkstation. Interactive image viewing, volumetric display andanalysis were [...] refer to the separate radiology report in [facility] for anyaddi tional non-cardiovascular findings. STUDY QUALITYThe study quality is good.COMMENTSNone. FINDINGS: Signed 07/06/2019 05:59 Bethany Olvera MethodistSurgical pathology azcalec5885-06-73 13:32:02 Test Item Value Reference Range Interpretation Comments Case number (test code = [id number]) Surgical pathology See link below for report (test code = PDF Lab Report 2255) Result status (test code This is Final Report = [id number]) for [id number] Lefty JohnsonHIV Ag/Ab pceqhpuujif1740-30-28 09:39:34 Test Item Value Reference Range Interpretation Comments HIV Ag/Ab combination (test code Non-reactive Non-reactive = 5299) Lefty HaywoodistProthrombin time with [id number] 07:38:02 Test Item Value Reference Range Interpretation Comments Prothrombin time (test 14.5 11.5- 14.5 sec code = 5902-2) INR (test code = 1.1 [facility] 38459-2) Normalized Rati o (INR) is a therapeutic m onitoring tool for patien ts who are stable on oral anticoagulant t herapy. An INR of 2.0-3.0 is suggested for d eep vein thrombosis/pulm onary embolism. Lefty JohnsonC4 complement jrrdggiux5029-60-55 07:25:14 Test Item Value Reference Range Interpretation Comments C4 complement (test code = 4498-2) 34 mg/dL 10-40 Lefty HaywoodistC3 complement uqzhsdlbf2069-77-33 07:25:14 Test Item Value Reference Range Interpretation Comments C3 complement (test code = 4485-9) 133 mg/dL 90-180 Lefty HaywoodistRheumatoid smtzho1308-42-94 07:25:13 Test Item Value Reference Range Interpretation Comments Rheumatoid factor (test code = 50323-4) <10 0- 13 IU/mL [facility]an[facility]hor[facility] Echocardi[facility] Complete, (w Contrast, Strain and 3D if needed)2019-07-05 10:49:00Interface, Radiology Results In - 07/05/2019 10:49 AM CDT Echocardiography Report [address] [address], [place] [address] Pat.Name: PAOLA ENGEL.ID: [id number].Date: 07/05/2019 Refer.MD: MILTON ELLINGTON MDExam Time: 7:54:00 AM Study Type:Routine Echo Height: 67in Weight: 212lb BSA: 2.07 m2 Age: 4 1965,53Y Sex: MALE BP: 157/71 Sonogrphr: Audrey Bella RDCS, RVSPat. Stat.:Inpatient Room: [facility] Study Status:Final Echo Event ID:[id number] Order ID: [id number] Reason for Study:Chest pain, suspected cardi ac etiologyHistory / Clinical:Chest Pain, Diabetes, Hyperlipidemia, Hypertension,Cirrhosis, [place], Infectious Viral HepatitisProcedures: 2D Echo, Colorflow DopplerRace: [...] estimate PA systolic pressure. MEASUREMENTS: 2DParasternal Long [place] Ao An 2 cm LVPWd 1.5 cm [...] Signed 07/05/2019 10:49 Bethany Rain MethodistVancomycin level, sgbddz2491-81-18 06:48:15 Test Item Value Reference Range Interpretation Comments Vancomycin, random (test code = 11.9 ug/mL 00135-8) Lefty JohnsonVENIPUNC NEED PHYS SKILL,DX OR [id number] 14:59:18SmitEstela gil RN 07/02/2019 3:03 PMMidlineDate/Time: 07/02/2019 2:59 PMPerformed [...] Catheter Length (cm): 10 Catheter Lot Number: [id number] Catheter Expiration Date: 1Procedure Details: Landmarks identified: [...] tolerance of procedure: Tolerated well, no immediate complicationsHougood samaritan medical center MethodistVancomycin level, trough 2019-07-01 15:28:35 Test Item Value Reference Range Interpretation Comments Vancomycin, trough 23.0 ug/mL 10-20 HH Therapeut ic Ranges: (test code = 35853-3) Peak 30.0 - 40.0 ug/mL T rough 10.0 - 20.0 ug/mL Lab Interpretation Abnormal (test code = 09735-8) Jud MethodistIR Transjugular Liver Mxlorm8242-24-46 16:47:45Hm Interface, Radiology Results 06/30/2019 4:50 PM CSTPerforming RadiologistJeveronica Lauren MD AssistantsNone Anesthesia TypeModerate sedation was administered by the procedure nurse and monitored by the procedure physician for a rwew-cz-psug sedation time of 20 minutes. Lidocaine 1% was usedfor local anesthetic. Pre Procedure Meujwhkgh02-mtrp-hkn man with possible cirrhosis.. Post Procedure DiagnosisStatus [...] for local anesthetic. Using real-time ultrasound guidance, m74-okayy micropuncture needle was used to access the [...] into the inferior vena cava. A long 9-Kyrgyz vascular sheath was then placed,andadvanced over the guidewire into the right atrium. Right atrial pressure measures were then obtained. A 5-Kyrgyz multipurpose catheter was advanced over the guidewire and used to select the right hepatic vein. A CO2 right hepatic venogram was performed. Pressure measurements were also obtained in boththe free and wedge positions. The 9-Kyrgyz vascular sheath was then advanced into the right hepatic vein. The transjugular liver biopsy system was advanced through the 9-Kyrgyz vascular sheath, and multiple 18-gauge core liver biopsy specimens were obtained and submitted to pathology. The transjugularliver biopsy system and 9-Kyrgyz vascular sheath were then removed from the [...] hepatic: 11 mmHg Wedge hepatic: 15 mmHg [id number] YobanyistAnti smooth muscle Ab dqoxlh1604-06-29 14:32:24 Test Item Value Reference Range Interpretation Comments Anti smooth muscle Ab screen Not Detected Not-Detected (test code = 262) Jud Deirdre Tunneled Dialysis Catheter Scqytvsoy9071-24-13 07:28:35Hm Interface, Radiology Results 06/24/2019 7:31 AM CSTPERFORMING RADIOLOGIST:Will Petersen MD ASSISTANTS:None. ANESTHESIA TYPE:Moderate sedation was administered by the procedure nurse and monitored by the procedure physician for a total onjr-nb-xkoj sedation time of 8 minutes. Lidocaine 1% [...] cavoatrial junction. PLAN:-Catheter is ready for immediate use.[facility]-[id number] Methodrehoboth mckinley christian health care servicesGram uheel6192-48-83 21:21:01Gram stain isolateRare WBC'sMany Gram negative rodsRare Gram positive cocci in pairs Comment: Specimen InformationSpecimen Source: DrainageSpecimen Site: Not otherwise specified [facility] MethodistAnti mitochondria zrtxyn7164-78-42 15:12:05 Test Item Value Reference Range Interpretation Comments Anti mitochondria screen (test Not Detected Not-Detected code = 1686) [facility] Abdomen 1 Ajskpblz4637-17-54 18:02:41Hm Interface, Radiology Results Incoming - 06/21/2019 6:05 PM CSTEXAMINATION: XR ABDOMEN 1 PORTABLECLINICAL HISTORY: Abd pain unspecified, BLQ abdominal pain rule out ileus or constipationCOMPARISON: Fluoroscopic images from 05/19/2008IMPRESSION:Artifact overlying the abdomen mildly limits evaluation.No dilated gas-filled loops of large or small bowel are noted. The patient is status post cholecystectomy.The bones of the abdomen and pelvis are unremarkable.The lung bases are clear.[id number] MethodistProtein, urine, ltekcp2618-56-31 20:50:36 Test Item Value Reference Range Interpretation Comments Protein, urine random (test code = 584 mg/dL 2888-6) Lefty MethodistCreatinine level, urine, ugpnyw0526-34-08 20:39:45 Test Item Value Reference Range Interpretation Comments Creatinine, urine, random (test code 99 mg/dL = 63461-1) Lefty MethodistHepatitis B surface Ab, qxwxreogknup0478-40-84 18:16:55 Test Item Value Reference Range Interpretation [...] HBs 9.99 IU/L or less .. ..... Ozooanet26.00 I U/L or greater .... PositiveResults greater than 1,000.00 I U/L are reported as gre ater than 1,000.00 IU/L. This assay should not be u sed for blood donor scr eening, associated re-e ntry protocols, or f or screening Human Cell, Tis sues and Cellular and Ti ssue-Based Products (HCT/P ).Performed by [employer],[address], [place] [address] nnb .[employer] , Roberto Almaguer MD, Lab. Director Olea Latter-DayUrine nalqxlk9845-04-58 10:35:14 Test Item Value Reference Range Interpretation Comments Urine culture No growth Specimen isolate (test after 24 InformationSpe cimen code = 36662-0) hours Source: Urin eSpecimen Site: Clean cat Lefty BkmwvcuolRQO7047-91-77 13:23:19 Test Item Value Reference Range Interpretation Comments ANNE screen (test Negative Negative Test perfor med using NOVA code = 550) Lite DAPI ANNE k it (Indirect Immunofluoresce nce Assay) for Anti-Nuclea r Antibody on Contently QUANTA-Ly ser 160 Analyzer. Olea MethodistHepatitis B core antibody mufch7116-03-41 08:03:43 Test Item Value Reference Range Interpretation Comments Hepatitis B core total Ab (test Non-reactive Non-reactive code = 95528-3) Jud MethodistHepatitis B core antibody TrA1622-14-21 08:03:43 Test Item Value Reference Range Interpretation Comments Hepatitis B core IgM (test code Non-reactive Non-reactive = 99779-9) Jud MethodistHepatitis A antibody CxD0698-34-43 08:03:43 Test Item Value Reference Range Interpretation Comments Hepatitis A IgM (test code = Non-reactive Non-reactive 93654-9) Jud MethodistHepatitis C svfvbjig1263-05-15 08:03:43 Test Item Value Reference Range Interpretation Comments Hepatitis C Ab (test code = Non-reactive Non-reactive 42614-1) Jud MethodistAmmonia hkrmr9869-77-24 08:01:41 Test Item Value Reference Range Interpretation Comments Ammonia (test code = 1841-6) 63 umol/L 16-60 H Lab Interpretation (test code = Abnormal 36947-8) Jud MethodistHepatitis B surface fyyicob3974-50-08 07:28:04 Test Item Value Reference Range Interpretation Comments Hepatitis B surface Ag (test Non-reactive Non-reactive code = 5195-3) Jud MethodistHepatitis B surface rridclhq2357-25-93 07:28:04 Test Item Value Reference Range Interpretation Comments Hepatitis B surface Ab (test Non-reactive Non-reactive code = 58926-2) Jud MethodistUrinalysis screen and microscopy, with reflex to culture 2019-06-18 07:26:53 Test Item Value Reference Range Interpretation Comments Specimen site (test code = Clean catch 3629468) Color, UA (test code = 5778-6) Yellow Appearance, UA (test code = Cloudy 5767-9) Specific gravity, UA (test code = 1.011 1.001-1.035 5811-5) pH, UA (test code = 5803-2) 5.0 5.0-8.5 Protein, UA (test code = 19158-7) 3+ Negative A Glucose, UA (test code = 85880-4) 1+ Negative A Ketones, UA (test code = 2514-8) Negative Negative Bilirubin, UA (test code = Negative Negative 5770-3) Blood, UA (test code = 5794-3) Small Negative A Nitrite, UA (test code = 5802-4) Negative Negative Urobilinogen, UA (test code = <2.0 <2.0 01198-7) Leukocyte esterase, UA (test code Negative Negative = 5799-2) WBC, UA (test code = 5821-4) 14 0- 1 /HPF H RBC, UA (test code = 81494-5) 1 0- 5 /HPF Bacteria, UA (test code = Few None seen 86482-4) WBC clumps, UA (test code = Few A 53564-7) Yeast, UA (test code = 64738-3) None seen Yeast with pseudohyphae, UA (test None seen code = 45988-2) Amorphous crystals (test code = Few 46906-6) Granular casts, UA (test code = 1 0- 1 /LPF 5793-5) Lab Interpretation (test code = Abnormal 70015-0) Lefty MethodistAlpha ypdzmrebboj9117-97-75 07:19:58 Test Item Value Reference Range Interpretation Comments Alpha fetoprotein 1.6 ng/mL 0-8.3 The Lexis 8000 AFP (test code = immunoassay was used. 38344-4) Results obtaine d with different assay methods or kits should not be used interchang eably and may be differen t. Lefty MethodistCeruloplasmin kfazz7550-51-82 07:17:32 Test Item Value Reference Range Interpretation Comments Ceruloplasmin (test code = 2064-4) 22 mg/dL 15-30 Lefty YcuzqcrfiRXC3204-79-28 07:17:31 Test Item Value Reference Range Interpretation Comments GGT (test code = 2324-2) 80 U/L 0-59 H Lab Interpretation (test code = Abnormal 68450-9) Lefty MethodistAlpha-1 antitrypsin kydek3672-57-70 07:17:31 Test Item Value Reference Range Interpretation Comments Alpha-1 antitrypsin (test code = 166 mg/dL 90-200 6771-0) Jud MethodistTissue transglutaminase Ab, AnP5033-82-21 17:53:26 Test Item Value Reference Range Interpretation Comments Tissue 1 U/mL 0-3 No further sheldon ac transglutaminase Ab, testing to be IgA (test code = 2324) perfo rmed.INTERPRETIV E INFORMATION: Tissue Transglutaminas e (tTG) Antibody, IgA3 U/mL or less: Negative4-10 U/ mL: Weak Nzkxdebc68 U/mL or greater: PositivePresenc e of the [...] value for disease.Perform ed by [facility] ,[address] [facility], [facility] [address] zyo .[employer]grouplesupl [employer], Roberto Almaguer MD, Juanita jane. Director BRENT (test code = BRENT) CO2 called with reae back to Yu Kwon/ [facility] at 06/16/2019 08:04 by JN1. Jud MethodistUS Abdomen Wepinwng9106-53-13 16:55:54Hm Interface, Radiology Results - 06/17/2019 4:59 [...] to participate in the care of your patient.[facility]-[id number] MethodistUS Abdominal Ypwmfii1369-13-36 16:52:25Hm Interface, Radiology Results 06/17/2019 4:55 PM [...] artery and vein are identified and are patent.[facility]-[id number] MethodW[facility] Renal 2019-06-17 14:29:49Hm Interface, Radiology Results 06/17/2019 2:32 PM CSTEXAMINATION: US RENALCLINICAL HISTORY: Flank pain stone disease suspectedCOMPARISON: None.IMPRESSION: The right kidney measures 12cm in length.The left kidney measures 13.9 cm in length.There is no renal mass, stone, cyst, or hydronephrosis. Echogenicity is normal.The urinary bladder is unremarkable.[facility]-[id number] MethodistCeliac disease reflexive cascade 2019-06-17 07:55:20 Test Item Value Reference Range Interpretation Comments IgA (test code = 449 mg/dL 68-408 H Total IgA i s within 2458-8) or higher than established ran ges. Tissue Transglutaminas e, IgA to follow.REFERENC E INTERVAL: Immunoglobulin AAccess complet e set of age- and/or gender-specific reference inter vals for this test i n the [facility] Test Directory ([employer]).P erfor med by [employer],[address] [place] [place] [address] rkr .[employer], Roberto Almaguer MD, Juanita jane. Director BRENT (test code = BRENT) CO2 called with reae back to Yu Kwon/ [facility] at 06/16/2019 08:04 by JN1. Lab Interpretation Abnormal (test code = 87853-4) Jud MethodistFecal nnotgsvyddze4555-11-98 13:53:32 Test Item Value Reference Range Interpretation Comments Fecal calprotectin (test code = 57.64 <15.6-120mg/kg 78479-8) Jud MethodistUs carotid zzzzvf1353-39-33 20:05:00Interface, Radiology Results In - 06/15/2019 8:06 PM [facility] Vascular Ultrasound Laboratory Carotid Artery Duplex [address] [place] [address] For quality systems manager purposes, the categorization of the degree of the stenosis of this exam is based on criteria described in the IAC carotid stenosis grading white paper( www.intersocietal.org/Vascular) and Elijah, Alfonso.Carole., Girish FountainB., et al. Carotid artery stenosis: wagner-scale and Doppler US diagnosis--Society of Radiologists in Ultrasound Consensus Conference. Radiology. 2003 Nov; 229(2):340-6. Pat.Name: PAOLA ENGEL Pat.ID: [id number] .Date: 06/15/2019 Refer.MD: MILTON ELLINGTON MDExrebeca Time: 11:04:00 AM Study Type:Carotid Height: 67in Weight: 212lb BSA: 2.07 m2 Age: 4 1965,53Y Sex: MALE BP: 116/68 Sonogrphr: Suad Greco RDCS, RVTPat. Stat.:Inpatient Room: [facility] A Tape Vol: ED, CPT - 4: 49190 Echo Event ID:[id number] Order ID: [id number] Reason for Study:Pre-op evaluation History / Clinical:Smoker, CAD, S/p DE, DM, HTN, HLD, Liver cirrhosis,Chest pain, ObesityProcedures: [...] Sign ed 06/15/2019 08:05 PMValentín Vallejo MD, [facility] MethodistSpirometry, diffusion, lung yboolrx2109-27-85 14:29:17 Test Item Value Reference Range Interpretation [...] Predicted 68.3 % (test code = 5445) [facility]Gastrointestinal qrtfm9052-22-13 13:46:31Gastrointestinal panelNegative for all pathogens tested:Negative for [...] Comment: Specimen InformationSpecimen Source: StoolSpecimen Site: Nonpreserved [facility] MethodistManual ukllflrcgdby9418-26-83 08:23:11 Test Item Value Reference Range Interpretation Comments Manual differential (test code = PERFORMED 32548-8) Neutrophils (test code = 53.0 % 39-69 81522-8) Lymphocytes (test code = 36.0 % 25-45 85969-6) Monocytes (test code = 71012-0) 6.0 % 0-10 Eosinophils (test code = 4.0 % 0-5 46035-6) Basophils (test code = 03158-9) 1.0 % 0-1 Metamyelocytes (test code = 0 % 740-1) Promyelocytes (test code = 0 % 783-1) Platelet slide review (test code Rebekah adequate = 24012-9) Anisocytosis (test code = 702-1) Moderate Polychromasia (test code = Moderate 65094-1) Ovalocytes (test code = 774-0) Moderate [facility]anoHemoglobin S0f8269-58-52 08:03:34 Test Item Value Reference Range Interpretation Comments Hemoglobin A1C (test 12.6 % 4-5.6 H HbA1c c utoffs for code = 59139-1) diagnosing diabetes:4.0% - 5.6% = normal5.7% - 6.4% = increased risk for diabetes (prediabetes)9> =6.5% = buhalyli2Xhul s for glycemic contro l (ADA 2016)< 7.0% Ta rget for non adults with win betes. More or less stringent targe ts may be appropriate for individual virginie ents. <7.5% Target for Children and adolescents wit h type 1 diabetes. Lab Interpretation (test Abnormal code = 00847-8) Lefty Davila gvjm3482-55-59 06:34:11 Test Item Value Reference Range Interpretation Comments T4, free (test code = 3024-7) 0.8 ng/dL 0.9-1.7 L Lab Interpretation (test code = Abnormal 85330-0) Lefty MethodistThyroid stimulating djovchi5074 06:34:11 Test Item Value Reference Range Interpretation Comments TSH (test code = 3016-3) 1.95 0.27- 4.20 uIU/mL Lefty MethodistLipid dspyr6058-44-32 06:30:05 Test Item Value Reference Interpretation Comments [...] (mg/dL) interpretation (test < 200 code = 81465-4) Desirable 200-239 Borderline -high >=240 Hi gh [...] mg/dL) Lab Interpretation Abnormal (test code = 22118-1) Lefty MethodistInfluenza wjtgwxe8471-79-20 00:42:57 Test Item Value Reference Range Interpretation Comments Influenza Negative for Specimen antigen (test Influenza A/B Information ecimen code = 78036-1) antigen. Source: [facility] Right Jud MethodistPartial thromboplastin time, rxrlkcevy9602-56-55 20:31:46 Test Item Value Reference Range Interpretation Comments PTT (test code = 28.1 23.0- 36.0 [place] [address]-2) unfractionated heparin is61.0-112.0 se conds which corresponds to Anti-Xa0.3-0.7 U/ml. Jud MethodistPOCT-GLUCOSE [id number] 12:50:00 Test Item Value Reference Range Interpretation Comments POC-GLUCOSE METER 119 mg/dL 70-110 H TESTED AT [facility] 6720 (BEAKER) (test code = [place] 1538) [address] BASIC METABOLIC JNHGS0618-02-86 06:16:00 Test Item Value Reference Range Interpretation [...] PATIEN TS. CBC W/PLT COUNT & AUTO IWYAWSXCZSZR1724-51-26 05:42:00 Test Item Value Reference Range Interpretation [...] PERCENT (BEAKER) (test code = 2801) POCT-GLUCOSE [id number] 20:34:00 Test Item Value Reference Range Interpretation Comments POC-GLUCOSE METER 205 mg/dL 70-110 H TESTED AT [facility] 67[address] (BEAKER) (test code = [place] 1538) [address] CT, CHEST, WITHOUT PBCMZMSJ6726-23-63 18:24:00FINAL REPORT TECHNIQUE: CT scan of the [...] no CT follow-up is necessary. Signed: Elli Sierra MDReport Verified Date/Time: 01/10/2019 18:24:57 Reading Location: [facility] C0Y CT Body Reading Room POCT-GLUCOSE [id number] 17:31:00 Test Item Value Reference Range Interpretation Comments POC-GLUCOSE METER 183 mg/dL 70-110 H TESTED AT [place] [address] ([facility]) (test code = [place] [facility] 1538) [address] CT, BRAIN, WITHOUT [id number] 14:47:00FINAL REPORT CT, BRAIN, WITHOUT CONTRAST INDICATION: [...] Lubna Lr MDReport Verified Date/Time: 01/10/2019 14:47:25 -DBYUP2791-32-15 11:36:00 Test Item Value Reference Range Interpretation [...] within 95-100% range.RAD, CHEST, 1 VIEW, NON [id number] 08:17:00Reason for exam:->chest painShould this be performed [...] MDReport Verified Date/Time: 01/10/2019 08:17:19 Reading Location: [address] Ortho Consult Reading Room TROPONIN [id number] 07:02:00 Test Item Value Reference Range Interpretation [...] H (test code = 700) BASIC METABOLIC [id number] 06:51:00 Test Item Value Reference Range Interpretation [...] PATIEN TS. CBC W/PLT COUNT & AUTO [id number] 06:27:00 Test Item Value Reference Range Interpretation [...] EOSINOPHILS ABSOLUTE COUNT 0.30 K/ L 0.04-0.54 ([facility]) (test code = 416) BASOPHILS ABSOLUTE COUNT ([facility]) 0.04 K/ L 0.01-0.08 (test code = 417) IMMATURE GRANULOCYTES-RELATIVE 0 % 0-1 PERCENT ([facility]) (test code = 2801) TROPONIN [id number] 23:52:00 Test Item Value Reference Range Interpretation Comments TROPONIN I ([facility]) (test code = 0.03 ng/mL 0.00-0.03 [...] acidosis, acute neurological disease, and persistent tachyarrhythmia.POCT-GLUCOSE [id number] 22:03:00 Test Item Value Reference Range Interpretation Comments POC-GLUCOSE METER 315 mg/dL 70-110 H TESTED AT [place] [address] ([facility]) (test code = [facility] [place] [facility] 1538) [address] POCT-GLUCOSE [id number] 20:02:00 Test Item Value Reference Range Interpretation Comments POC-GLUCOSE METER 250 mg/dL 70-110 H TESTED AT [place] [address] ([facility]) (test code = [facility] [place] [facility] 1538) [address] TROPONIN [id number] 19:05:00 Test Item Value Reference Range Interpretation Comments TROPONIN I ([facility]) (test code = 0.04 ng/mL 0.00-0.03 [...] acidosis, acute neurological disease, and persistent tachyarrhythmia.POCT-GLUCOSE [id number] 17:40:00 Test Item Value Reference Range Interpretation Comments POC-GLUCOSE METER 246 mg/dL 70-110 H TESTED AT [facility] 6720 (BEAKER) (test code = [place] 1538) [address] POCT-GLUCOSE [id number] 08:11:00 Test Item Value Reference Range Interpretation Comments POC-GLUCOSE METER 243 mg/dL 70-110 H TESTED AT [facility] 6720 (BEAKER) (test code = [place] 1538) [address] BASIC METABOLIC [id number] 05:04:00 Test Item Value Reference Range Interpretation [...] S NOT APPLICABLE FOR DIALYSIS PATIEN TS. [id number] 04:56:00 Test Item Value Reference Range Interpretation Comments PARTIAL THROMBOPLASTIN TIME 35.0 seconds 22.5-36.0 (BEAKER) (test code = 760) CBC W/PLT COUNT & AUTO [id number] 04:48:00 Test Item Value Reference Range Interpretation [...] PERCENT (BEAKER) (test code = 2801) POCT-GLUCOSE [id number] 22:08:00 Test Item Value Reference Range Interpretation Comments POC-GLUCOSE METER 364 mg/dL 70-110 H Notified R Christy BOSS/TESTED (BEAKER) (test code = AT [facility] 6757 [facility] 0860) [facility] 7703 0 POCT-GLUCOSE [id number] 17:05:00 Test Item Value Reference Range Interpretation Comments POC-GLUCOSE METER 389 mg/dL 70-110 H Notified R Christy BOSS/TESTED (BEAKER) (test code = AT [facility] 6720 [facility] 7703 0 BASIC METABOLIC [id number] 16:28:00 Test Item Value Reference Range Interpretation [...] S NOT APPLICABLE FOR DIALYSIS PATIEN TS. [id number] 16:26:00 Test Item Value Reference Range Interpretation [...] INR is2.5-3.5 for patients wiht mechanical heart valves.[id number] 16:26:00 Test Item Value Reference Range Interpretation Comments PARTIAL THROMBOPLASTIN TIME 32.0 seconds 22.5-36.0 (BEAKER) (test code = 760) POCT-GLUCOSE [id number] 12:06:00 Test Item Value Reference Range Interpretation Comments POC-GLUCOSE METER 321 mg/dL 70-110 H Notified R Crhisty BOSS/TESTED (BEAKER) (test code = AT [facility] 6720 [place] 1538) [place] 7[address] 0 POCT-GLUCOSE [id number] 08:29:00 Test Item Value Reference Range Interpretation Comments POC-GLUCOSE METER 263 mg/dL 70-110 H TESTED AT [facility] 6720 (BEAKER) (test code = [place] 1538) [address] [id number] 04:54:00 Test Item Value Reference Range Interpretation Comments PARTIAL THROMBOPLASTIN TIME 31.0 seconds 22.5-36.0 (BEAKER) (test code = 760) CBC W/PLT COUNT & AUTO [id number] 04:43:00 Test Item Value Reference Range Interpretation [...] PERCENT (BEAKER) (test code = 2801) POCT-GLUCOSE [id number] 22:11:00 Test Item Value Reference Range Interpretation Comments POC-GLUCOSE METER 319 mg/dL 70-110 H Notified Rohith Harrison MD/TESTED ([facility]) (test code = AT [place] [address]) [facility] 7703 0 [id number] 20:11:00 Test Item Value Reference Range Interpretation Comments PARTIAL THROMBOPLASTIN TIME 33.3 seconds 22.5-36.0 ([facility]) (test code = 760) POCT-GLUCOSE [id number] 18:49:00 Test Item Value Reference Range Interpretation Comments POC-GLUCOSE METER 309 mg/dL 70-110 H TESTED AT [place] [address] ([facility]) (test code = [place] [facility] 1538) [address] POCT-GLUCOSE [id number] 14:48:00 Test Item Value Reference Range Interpretation Comments POC-GLUCOSE METER 161 mg/dL 70-110 H TESTED AT [place] [address] ([facility]) (test code = [place] [facility] 1538) [address] POCT-GLUCOSE [id number] 14:46:00 Test Item Value Reference Range Interpretation Comments POC-GLUCOSE METER 159 mg/dL 70-110 H TESTED AT [place] [address] ([facility]) (test code = [place] 1538) [address] TROPONIN [id number] 13:58:00 Test Item Value Reference Range Interpretation Comments TROPONIN I ([facility]) (test code = 397) < ng/mL [...] failure, acidosis, acute neurological disease, and persistent tachyarrhythmia.[id number] 12:25:00 Test Item Value Reference Range Interpretation Comments PARTIAL THROMBOPLASTIN TIME 30.3 seconds 22.5-36.0 ([facility]) (test code = 760) POCT-GLUCOSE [id number] 12:18:00 Test Item Value Reference Range Interpretation Comments POC-GLUCOSE METER 168 mg/dL 70-110 H TESTED AT [place] [address] ([facility]) (test code = [place] [facility] 1538) [address] POCT-GLUCOSE [id number] 11:06:00 Test Item Value Reference Range Interpretation Comments POC-GLUCOSE METER 180 mg/dL 70-110 H TESTED AT [place] [address] ([facility]) (test code = [place] [facility] 1538) [address] POCT-GLUCOSE [id number] 10:21:00 Test Item Value Reference Range Interpretation Comments POC-GLUCOSE METER 195 mg/dL 70-110 H TESTED AT [place] [address] ([facility]) (test code = [place] 1538) [address] POCT-GLUCOSE [id number] 10:21:00 Test Item Value Reference Range Interpretation Comments POC-GLUCOSE METER 180 mg/dL 70-110 H TESTED AT [place] [address] ([facility]) (test code = [place] 1538) [address] POCT-GLUCOSE [id number] 08:06:00 Test Item Value Reference Range Interpretation Comments POC-GLUCOSE METER 218 mg/dL 70-110 H TESTED AT [place] [address] ([facility]) (test code = [place] [facility] 1538) [address] TROPONIN [id number] 07:00:00 Test Item Value Reference Range Interpretation [...] afterwardsOnce on admission and Daily AM afterwardsPOCT-GLUCOSE [id number] 06:58:00 Test Item Value Reference Range Interpretation Comments POC-GLUCOSE METER 248 mg/dL 70-110 H TESTED AT [place] [address] ([facility]) (test code = [place] [facility] 1538) [address] [id number] 06:54:00 Test Item Value Reference Range Interpretation Comments PHOSPHORUS (BEAKER) (test code = 2.5 mg/dL 2.3-4.7 604) Once on admission and Daily AM afterwardsOnce on admission and Daily AM afterwardsOnce on admission and Daily AM [id number] 06:54:00 Test Item Value Reference Range Interpretation [...] Daily AM afterwardsCBC W/PLT COUNT & AUTO [id number] 06:42:00 Test Item Value Reference Range Interpretation [...] 0-1 PERCENT (BEAKER) (test code = 2801) [id number] 06:28:00 Test Item Value Reference Range Interpretation Comments PARTIAL THROMBOPLASTIN TIME 30.6 seconds 22.5-36.0 [facility] (test code = 760) POCT-GLUCOSE [id number] 06:01:00 Test Item Value Reference Range Interpretation Comments POC-GLUCOSE METER 266 mg/dL 70-110 H TESTED AT [place] [address] ([facility]) (test code = [place] [address]) [address] POCT-GLUCOSE [id number] 04:57:00 Test Item Value Reference Range Interpretation Comments POC-GLUCOSE METER 271 mg/dL 70-110 H TESTED AT [place] [address] ([facility]) (test code = [place] [address]) [address] POCT-GLUCOSE [id number] 04:05:00 Test Item Value Reference Range Interpretation Comments POC-GLUCOSE METER 308 mg/dL 70-110 H Notified R Christy BOSS/TESTED ([facility]) (test code = AT [place] [address] [place] [address]38) [facility] 7703 0 POCT-GLUCOSE [id number] 02:57:00 Test Item Value Reference Range Interpretation Comments POC-GLUCOSE METER 343 mg/dL 70-110 H Notified R Christy BOSS/TESTED ([facility]) (test code = AT [place] [address] [place] [facility]8) [facility] 7703 0 RAD, CHEST, 1 VIEW, NON [id number] 02:27:00Reason for exam:->mediastinal wideningShould this be performed [...] Emmanuelle Kline Verified Date/Time: 01/07/2019 02:27:45 POCT-GLUCOSE [id number] 01:57:00 Test Item Value Reference Range Interpretation Comments POC-GLUCOSE METER 369 mg/dL 70-110 H TESTED AT [place] [address] ([facility]) (test code = [place] [address] [address] POCT-GLUCOSE [id number] 01:06:00 Test Item Value Reference Range Interpretation Comments POC-GLUCOSE METER 395 mg/dL 70-110 H Notified Rohith Harrison MD/TESTED ([facility]) (test code = AT [place] [address]) [facility] 7703 0 TROPONIN [id number] 00:36:00 Test Item Value Reference Range Interpretation Comments TROPONIN I ([facility]) (test code = 0.01 ng/mL 0.00-0.03 397) [...] Reference Range Interpretation Comments B-TYPE NATRIURETIC PEPTIDE ([facility]) 151 pg/mL 0-100 H (test code = 700) [id number] 00:19:00 Test Item Value Reference Range Interpretation Comments PARTIAL THROMBOPLASTIN TIME 28.2 seconds 22.5-36.0 ([facility]) (test code = 760) Prior to initiating heparinPOCT-GLUCOSE [id number] 00:16:00 Test Item Value Reference Range Interpretation Comments POC-GLUCOSE METER 413 mg/dL 70-110 HH TESTED AT [facility] 6720 ([facility]) (test code = [place] [facility] 1538) [address] POCT-GLUCOSE [id number] 23:10:00 Test Item Value Reference Range Interpretation Comments POC-GLUCOSE METER 452 mg/dL 70-110 HH Notified R Christy BOSS/TESTED ([facility]) (test code = AT [facility] 6720 [facility] 1538) [place] [address] 0 POCT-GLUCOSE [id number] 22:06:00 Test Item Value Reference Range Interpretation Comments POC-GLUCOSE METER 383 mg/dL 70-110 H TESTED AT [facility] 6720 ([facility]) (test code = [place] [facility] 1538) [address] CT, BRAIN, WITHOUT [id number] 21:38:00FINAL REPORT CT Head without contrast CLINICAL [...] Signed: Emmanuelle Kline Verified Date/Time: 01/06/2019 21:38:52 [facility] METABOLIC [id number] 21:12:00 Test Item Value Reference Range Interpretation [...] S NOT APPLICABLE FOR DIALYSIS PATIEN TS. HEMOGLOBIN [id number] 20:17:00 Test Item Value Reference Range Interpretation Comments HEMOGLOBIN A1C (BEAKER) (test code = 11.9 % 4.3-6.1 H 368) TROPONIN [id number] 19:52:00 Test Item Value Reference Range Interpretation [...] acute neurological disease, and persistent tachyarrhythmia.HEPATIC FUNCTION [id number] 19:46:00 Test Item Value Reference Range Interpretation [...] (test code = 347) hemolyzed Specimen moderately [id number] 19:32:00 Test Item Value Reference Range Interpretation Comments PARTIAL THROMBOPLASTIN TIME 28.1 seconds 22.5-36.0 (BEAKER) (test code = 760) PROTHROMBIN TIME/[id number] 19:31:00 Test Item Value Reference Range Interpretation [...] mechanical heart valves.CBC W/PLT COUNT & AUTO [id number] 19:25:00 Test Item Value Reference Range Interpretation [...] PERCENT (BEAKER) (test code = 2801) POCT-GLUCOSE [id number] 17:51:00 Test Item Value Reference Range Interpretation Comments POC-GLUCOSE METER 342 mg/dL 70-110 H Notified R Christy BOSS/RIMMA (CHASITY) (test code = AT [facility] 6723 [facility] 3406) [facility] 7703 0
--- OUTSIDE RECORDS SUMMARY | 2020-01-13 16:15 | XMS REPORT | Summary of Care ---
:1965 Author Organization [facility] Address [address] [place] [address] Care Team Providers Name Role Phone Maria E Ornelas Primary Care Provider Reason for Visit Reason Comments Results Encounter Details Date Type Department Care Team Description 01/04/2020 Telephone [facility] Cardiology- Esteban Dempsey MD Results [place] [address] [facility] 146 [facility], [address] [facility] 106 [address] [place] [address] [place] [address] [phone] Allergies Active Allergy Reactions Severity Noted Date Comments Morphine Hives, Itching 06/25/2013 Hydrocodone-Acetaminophen Hives, Itching 06/25/2013 documented as of this encounter (statuses as of 01/07/2020) Medications Medication Sig Dispensed Refills Start Date [...] PM proMETHazine 25 mg Take 1 tablet 20 tablet 0 05/14/2019 Active tabletIndications: by mouth every Vomiting, intractability 6 (six) hours of vomiting not as needed for specified, presence of Nausea and nausea not specified, Vomiting unspecified vomiting (N/V). type levETIRAcetam 250 mg Take 250 mg by 0 Active tablet mouth 2 (two) times daily. insulin NPH hum/reg inject 80 0 Active insulin hm (NOVOLIN Units under 70/30 SC) the skin 2 (two) times daily. lisinopril 10 mg tablet Take 10 mg by 0 Active mouth daily. acetaZOLAMIDE 500 mg Take 500 mg by 0 Active capsule mouth 2 (two) times daily. gabapentin 300 mg Take 300 mg by 0 Active capsuleIndications: take mouth. 3 capsules BID Indications: take 3 capsules BID brinzolamide (AZOPT) 1 % 1 Drop 3 0 Active ophthalmic suspension (three) times drops daily. Brimonidine-Timolol Place in each 0 Active (COMBIGAN) 0.2-0.5 % eye. ophthalmic drops travoprost (TRAVATAN Z) 1 Drop at 0 Active 0.004 % ophthalmic bedtime. solution nitroglycerin 0.[address] 1 tablet 1 Bottle 1 01/04/2020 Active sublingual under the tabletIndications: tongue every Coronary artery disease 5 (five) involving [place] minutes as coronary artery of needed for [place] heart without Chest pain. angina pectoris atorvastatin 40 mg Take 1 tablet 30 tablet 11 01/07/2020 Active tablet by mouth at bedtime. simvastatin 40 mg tablet Take 40 mg by 0 0 mouth at 2019 (Written O rder) bedtime. documented as of this encounter (statuses as of 01/07/2020) Active Problems Problem Noted Date Seizures 05/26/2019 History of CVA (cerebrovascular accident) 05/26/2019 History of ME (myocardial infarction) 05/26/2019 Encounter for screening colonoscopy 05/26/2019 Coronary artery disease involving [place] coronary tho ry of [place] heart 05/26/2019 without angina pectoris Cirrhosis of [...] as of this encounter (statuses as of 01/07/2020) Immunizations Name Administration Dates Next Due TDAP [...] Signs Not on filedocumented in this encounter Miscellaneous Notes Telephone Encounter - Shellie Krishna RN - 01/07/2020 3:53 PM CDTPatient notified of results/recommendations, understanding was verbalized via teach back. Normal TSH dLDL at 81. Needs to be < 70 in the setting of CAD. Recommend to stop Zocor and start lipitor 40 mg daily. Rpt CMP and Lipids in 2 months. Triglycerides elevated in the setting of elevated BG/DM. A1c improving at 9.1 CMP within acceptable limits except elevated BG and Cr (Dialysis patient), mildly elevated LFTs noted in the setting of DM/cirrhosis. Will monitor. CBC within acceptable limits except mildly reduced Platelets n the setting of DM/cirrhosis. Will monitor. He follows outside GI. NT pro BNP elevated in the setting of CKD. Recommend to monitor his weight and BEARD symptoms. documented in this encounter Plan of Treatment Date Type Specialty Care Team Description 03/06/2020 Office Visit Cardiology Esteban Dempsey MD [address] [place] [address] [place] [address] [phone] Name Type Priority Associated Diagnoses Order S chedule COMP. METABOLIC PANEL LAB Routine Dyslipidem ia Expected: 02/06/2020, (33053) Coronary artery disease Expi res: 05/08/2020 involving [place] coronary artery of [place] heart without angina pectoris LIPID PANEL LAB Routine Dyslipidemia Expected: 02/05, (36446)(TOTAL Expires: 05/08 CHOLESTEROL, TRIGLYCERIDES, HDL) Health Maintenance Due Date Last Done Comments PNEUMOCOCCAL 0-64 YEARS COMBINED 07/30/1973 SERIES (1 of 1 - PPSV23) URINE MICROALBUMIN 07/30/1977 FOOT EXAM 07/30/1985 COLON CANCER SCREENING ANNUAL 07/30/2017 FIT/FOBT COLON CANCER SCREENING FIT DNA 07/30/2017 EVERY 3 YEARS COLON CANCER SCREENING 07/30/2017 SIGMOIDOSCOPY EVERY 5 YEARS COLONOSCOPY 07/30/2017 Colorectal Cancer Screening 07/30/2017 Zoster Recombinant Vaccine 07/30/2017 (SHINGRIX) (1 of 2) INFLUENZA VACCINE (#1) 2019 EYE EXAM 02/27/2020 02/26/2019 Depression Screening 05/26/2020 05/26/2019 HgA1C 07/03/2020 01/04/2020, 06/25/2013 CREATININE (SERUM) 01/03/2021 01/04/2020, 05/14/2019, 07/10/2017, Additional history exists LDL-C 01/03/2021 01/04/2020 DTaP,Tdap,and Td Vaccines (2 - Td) 05/26/2029 05/26/2019 documented as of this encounter Results Not on filedocumented in this encounter Visit Diagnoses Diagnosis Dyslipidemia - Primary Other and unspecified hyperlipidemia Coronary artery disease involving [place] coronary artery of [place] heart without angina pectoris documented in this encounter Additional Health Concerns Infection Onset Date Last Indicated Resolved Time COVID-19 Rule Out 01/04/2020 01/04/2020 01/04/2020 10: 14 PM CDT documented as of this encounter Insurance Payer Benefit Plan / Subscriber ID Effective Phone Address T ype Group Dates [facility] [id number] 2019-Prese [phone] [address] HMO HEALTH [employer] CHO[employer] nt [phone] [place] [address] documented as of this encounter
--- OUTSIDE RECORDS SUMMARY | 2020-01-13 16:15 | XMS REPORT | Summary of Care ---
:1965 Author Organization [facility] Address [address] [place] [address] Care Team Providers Name Role Phone Maria E Ornelas Primary Care Provider Encounter Details Date Type Department Care Team Description 01/07/2020 Letter (Out) [facility] Urgent Nurse, [facility] [address] [facility] [address] Allergies Active Allergy Reactions Severity Noted Date [...] by 20 tablet 0 05/14/2019 Active tabletIndications: Vomiting, mouth every 6 (six) intractability of vomiting not hours as needed for specified, presence of nausea Nausea and Vomiting not specified, unspecified (N/V). vomiting type levETIRAcetam 250 mg tablet Take 250 mg by mouth 0 Active 2 (two) times daily. insulin NPH hum/reg insulin hm inject 80 Units under 0 Active (NOVOLIN 70/30 SC) the skin 2 (two) times daily. lisinopril 10 mg tablet Take 10 mg by mouth 0 Active daily. simvastatin 40 mg tablet Take 40 mg by mouth 0 Active at bedtime. acetaZOLAMIDE 500 mg capsule Take 500 mg by mouth 0 Active 2 (two) times daily. gabapentin 300 mg Take 300 mg by mouth. 0 Active capsuleIndications: take 3 Indications: take 3 capsules BID capsules BID brinzolamide (AZOPT) 1 % 1 Drop 3 (three) 0 Active ophthalmic suspension drops times daily. Brimonidine-Timolol (COMBIGAN) Place in each eye. 0 Active 0.2-0.5 % ophthalmic drops travoprost (TRAVATAN Z) 0.004 % 1 Drop at bedtime. 0 Active ophthalmic solution nitroglycerin 0.[address] 1 tablet under 1 Bottle 1 01/04/2020 Active tabletIndications: Coronary the tongue every 5 artery disease involving [place] (five) minutes as coronary artery of [place] heart needed for Chest without angina pectoris pain. documented as of this encounter (statuses as of 01/07/2020) Active Problems Problem Noted Date Seizures 05/26/2019 History of CVA (cerebrovascular accident) 05/26/2019 History of CA (myocardial infarction) 05/26/2019 Encounter for screening colonoscopy 05/26/2019 Coronary artery disease involving [place] coronary tho ry of [place] heart 05/26/2019 without angina pectoris Cirrhosis of [...] Dempsey MD [address] [place] [address] [place] [address] [phone] Health Maintenance Due Date Last Done Comments [...] Effective Phone Address T ype Group Dates [facility] [id number] 2019-Prese [phone] [address] [employer] [phone] [place] [address] documented as of this encounter
--- OUTSIDE RECORDS SUMMARY | 2020-01-13 16:15 | XMS REPORT | Summary of Care ---
:1965 Author Organization [facility] Address [address] [place] [address] Care Team Providers Name Role Phone Maria E Ornelas Primary Care Provider Reason for Visit Reason Comments New Patient (Routine) Status Reason Specialty Diagnoses / Procedures Referred By Ambkia schmidt Referred To Contact Closed Cardiology Diagnoses Atherosclerotic heart disease of nikolai coronary artery without angina pectoris Hayden Buckley Procedures CONSULT/[facility]IOLOGY [address] [facility] [address] [place] [address] Phone: Encounter Details Date Type Department Care Team Description 01/04/2020 Office Visit [facility] Esteban Dempsey Coronary tho ry disease involving nikolai coronary artery of nikolai heart without angina pectoris (Primary Dx); Cardiology- MD KISHA Rich (dyspnea on exertion); [address] [place] [address] [address] [facility] Essential hypertension; Drive, [address] Dyslipidemia; [place], [place] Type 2 diabetes mellitus with other specified complication, unspecified whether intermediate manager insulin use [id number] Allergies Active Allergy Reactions Severity Noted Date [...] (five) Coronary artery disease minutes as involving nikolai coronary needed for Chest artery of nikolai heart pain. without angina pectoris aspirin 325 [...] of CVA (cerebrovascular accident) 05/26/2019 History of CO (myocardial infarction) 05/26/2019 Encounter for screening colonoscopy 05/26/2019 Coronary artery disease involving nikolai coronary tho ry of nikolai heart 05/26/2019 without angina pectoris Cirrhosis of [...] Dempsey MD - 01/04/2020 10:00 AM CDT [facility] Cardiology Consult Note Patient: Wero Kwong Date [...] BEARD NYHA Class II. Recent discharge from [facility] was reviewed. Saw Dr Oquendo and [...] refer to the separate radiology report in Epic for any additional non-cardiovascular findings. Echo 06/2019 [...] Procedure Laterality Date JOINT SURGERY Lt ACL - " OTHER Lower GI STENT PLACEMENT (SHX) [...] file Gets together: Not on file Attends restorationism service: Not on file Active member of [...] (H) ASSESSMENT/PLAN 1. Coronary artery disease involving nikolai coronary artery of nikolai heart without angina pectorisnitroglycerin 0.4 mg sublingual tablet CBC WITH DIFF COMP. METABOLIC PANEL (93243) GLYCOSYLATED HEMOGLOBIN (A1C) LIPID PANEL (02252)(TOTAL CHOLESTEROL, TRIGLYCERIDES, HDL) LOW-DENSITY LIPOPROTEIN, DIRECT N-TERMINAL PRO-BNP 2. BEARD (dyspnea on exertion) 3. Essential hypertension 4. Dyslipidemia 5. Type 2 diabetes mellitus with other specified complication, unspecified whether shelter insulinuse Severe CAD: Multiple PCI. Coronary CTA 05/2019 shows severe coronary atherosclerosis with severe stenosis of the proximal leftanterior descending and mid right coronary arteries; moderate stenosis of the first diagonal; and subtotal vs. total occlusion of the distal first obtuse marginal artery. Per DC summary from [facility]: Dr Carrillo. Based on work up done there, he was noted NOT a candidate for CABG. Patient and his prefers getting second opinion. Recommend to get prior Cath CD done in [facility]. Will upload. Will refer to [facility] CTS. Recommend to restart ASA 81 mg [...] Liver Cirrhosis: Follows outside GI specialist in [place]. Recommend to send us records. ESRD on HD: Follows Dr Murillo. Vascular work up: will plan after next OV. Follow up in 2 months. Orders Placed This Encounter Procedures CBC WITH DIFF COMP. METABOLIC PANEL (98323) GLYCOSYLATED HEMOGLOBIN (A1C) LIPID PANEL (34425)(TOTAL CHOLESTEROL, TRIGLYCERIDES, HDL) LOW-DENSITY LIPOPROTEIN, DIRECT N-TERMINAL [...] in the answers given. We reviewed the [place] Heart Association recommendations for reduction of overall [...] feel free to call our office at [phone]. I would be happy to be of further assistance for Wero Kwong wellbeing. Johnnie Dempsey MD Material Distributor, Division of Cardiology [facility] documented in this encounter Plan of Treatment Date Type Specialty Care Team Description 03/06/2020 Office Visit Cardiology Esteban Dempsey MD [address] [place] [address] [phone] Name Type Priority Associated Diagnoses Date/Ti me LOW-DENSITY LAB Routine Coronary artery disease 11/2019 11:29 AM CDT LIPOPROTEIN, DIRECT involving nikolai rosanna nary artery of nikolai heart without angina pectoris Name Type Priority Associated Diagnoses Order S chedule LOW-DENSITY LAB Routine Coronary artery disease 1 Oc currences starting LIPOPROTEIN, DIRECT involving nikolai rosanna nary 01/04/2020 until artery of nikolai heart 01/03 without angina pectoris Health Maintenance [...] Sig nature NT-proBNP 2,920 (H) <=125 pg/mL [facility] Specimen Blood Narrative Performed At Biotin has been reported to cause a negative [facility] bias, interpret results relative to patient's use of biotin. Performing Organization Address [facility] Phone Number [facility] CLIA: [id number] [place], [place] [address] LABORATORY [address] LIPID PANEL (80878)(TOTAL CHOLESTEROL, TRIGLYCERIDES, HDL) (01/04/2020 11:29 AM CDT) CHOL 184 120 - 200 [facility] mg/dL [facility] HDL 31 (L) >40 mg/dL [facility] HDLC RATIO 5.9 (H) <=5.0 [facility] TRIG 588 (H) 30 - 170 mg/dL [facility] LDL CHOL Comment: Unable to [facility] calculate LDL due to [facility]OS[facility]ITAL [facility]ORY elevated triglyceride level greater than 400 mg/dL. VLDL 118 (H) 5 - 60 mg/dL [facility] Specimen Blood Performing Organization Address [facility] Phone Number [facility] CLIA: [id number] [place], [place] [address] LABORATORY [address] GLYCOSYLATED HEMOGLOBIN (A1C) (01/04/2020 11:29 AM CDT) Pathologist Sig nature HGB A1C 9.1 (H) 4.0 - 6.0 % [facility] Specimen Blood Narrative Performed At %A1C (NGSP) Interpretation (ADA) [facility] 4.8-5.6 Normal or (Non-Diabetic Ra nge) 5.7-6.4 Increased Risk (Pre-Diabet ic) >6.5 Diabetes Indicated Performing Organization Address City/[facility] Phone Number [facility] CLIA: [id number] [place] [address] COMP. METABOLIC PANEL (96387) (01/04/2020 11:29 AM CDT) NA 134 (L) 135 - 145 [facility] mmol/L [facility] K 4.8 3.5 - 5.0 [facility] mmol/L [facility] CL 97 (L) 98 - 108 mmol/L [facility] CO2 TOTAL 28 23 - 31 mmol/L [facility] AGAP 9 2 - 16 [facility] BUN 30 (H) 7 - 23 mg/dL [facility] GLUCOSE 608 (HH) 70 - 110 mg/dL [facility] CREATININE 4.41 (H) 0.60 - 1.25 [facility] mg/dL [facility] TOTAL BILI 0.5 0.1 - 1.1 mg/dL [facility] CALCIUM 8.2 (L) 8.6 - 10.6 [facility] mg/dL [facility] T PROTEIN 6.2 (L) 6.3 - 8.2 g/dL [facility] ALBUMIN 3.3 (L) 3.5 - 5.0 g/dL [facility] ALK PHOS 168 (H) 34 - 122 U/L [facility] ALTv 28 5 - 50 U/L [facility] AST(SGOT) 30 13 - 40 U/L [facility] eGFR Calculation 14.2 mL/min/1.73m2 [facility] (Non[facility] LABORATORY [place]) eGFR Calculation 17.2 mL/min/1.73m2 [facility] () [facility] Specimen Blood Narrative Performed At Association of Glomerular Filtration Rate (GFR) [facility] and Staging of Kidney Disease* + [...] tests). Performing Organization Address City/State/Zipcode Phone Number [facility] CLIA: [id number] [place] [address] CBC WITH DIFF (01/04/2020 11:29 AM CDT) Pathologist Sig nature WBC 5.09 4.20 - 10.70 [facility] 10*3/L [facility] RBC 3.65 (L) 4.26 - 5.52 [facility] 10*6/L [facility] HGB 12.2 12.2 - 16.4 [facility] g/dL [facility] HCT 35.3 (L) 38.4 - 49.3 % [facility] MCV 96.7 (H) 81.7 - 95.6 fL [facility] MCH 33.4 (H) 26.1 - 32.7 pg [facility] MCHC 34.6 31.2 - 35.0 [facility] g/dL [facility] RDW-SD 47.7 38.5 - 51.6 fL [facility] RDW-CV 13.5 12.1 - 15.4 % [facility] PLT 127 (L) 150 - 328 [facility] 10*3/L [facility] MPV 13.0 9.8 - 13.0 fL [facility] NRBC/100 WBC 0.0 0.0 - 10.0 /100 [facility] WBCs [facility] NRBC x10^3 <0.01 10*3/L [facility] GRAN MAT (NEUT) % 63.6 % [facility] IMM GRAN % 0.60 % [facility] LYMPH % 22.6 % [facility] MONO % 7.7 % [facility] EOS % 4.7 % [facility] BASO % 0.8 % [facility] GRAN MAT x10^3(ANC) 3.24 1.99 - 6.95 [facility] 10*3/uL HOSPITAL LABORATORY IMM GRAN x10^3 0.03 0.00 - 0.06 [facility] 10*3/uL HOSPITAL LAB[facility]ATORY LYMPH x10^3 1.15 1.09 - 3.23 [facility] 10*3/uL HOSPITAL LABORATORY MONO x10^3 0.39 0.36 - 1.02 [facility] 10*3/uL HOSPITAL LAB[facility]ATORY EOS x10^3 0.24 0.06 - 0.53 [facility] 10*3/uL [facility] BASO x10^3 0.04 0.01 - 0.[address] [facility] Specimen Blood Performing Organization Address City/State/Zipcode Phone Number [facility] CLIA: [id number] [place] [address] documented in this encounter Visit Diagnoses Diagnosis Coronary artery disease involving nikolai coronary artery of nikolai heart without angina pectoris - Primary BEARD (dyspnea on exertion) Other dyspnea and respiratory abnormalit y Essential hypertension Unspecified essential hypertension Dyslipidemia Other and unspecified hyperlipidemia Type 2 diabetes mellitus with other spec ified complication, unspecified whether shelter insulin use documented in this encounter Additional Health Concerns Infection Onset Date Last Indicated Resolved Time COVID-19 Rule Out 01/04/2020 01/04/2020 documented as of this encounter Insurance Payer Benefit Plan / Subscriber ID Effective Phone Address T e Group Dates [facility] [id number] 2019-Prese [phone] [address] [facility] [employer] [facility] [employer] [phone] [place] [address] documented as of this encounter
--- OUTSIDE RECORDS SUMMARY | 2020-01-13 16:15 | XMS REPORT | Summary of Care ---
:1965 Author Organization [facility] Address [address] [place] [address] Care Team Providers Name Role Phone Maria E Ornelas Primary Care Provider Reason for Visit Reason Comments LAB Encounter Details Date Type Department Care Team Description 01/04/2020 Care Transitions Manager Visit [facility] Esteban Maguire MD [address] [place] [address] Coronary artery Professional Office 2, Adc Lab disease involving Building Phlebotomy cocopah c oronary Lab artery of cocop[place] Professional Office heart [facility] angina Building pectoris [address] [facility] , [address] [place] [address] Allergies Active Allergy Reactions Severity [...] the tongue every 5 artery disease involving cocopah (five) minutes as coronary artery of cocop[place] heart needed for Chest without angina pectoris pain. documented as of this encounter (statuses as of 01/04/2020) Active Problems Problem Noted Date Seizures 05/26/2019 History of CVA (cerebrovascular accident) 05/26/2019 History of NM (myocardial infarction) 05/26/2019 Encounter for screening colonoscopy 05/26/2019 Coronary artery disease involving cocopah coronary tho ry of cocopah heart 05/26/2019 without angina pectoris Cirrhosis of [...] processed according to instructions and sent to [facility] laboratories per lab order on 01/04/20: LT BLUE SST 2 RED LAV 2 PPT DK GREEN (LiHep) DK GREEN (SodH) ROSALES DK BLUE (K2) DK BLUE (S) ACD Blood Culture NIPT/NTD documented in this encounter Miscellaneous Notes Result Gerald - Esteban Maguire MD - 01/04/2020 11:15 AM CDTdLDL at 81. Needs to be < 70 [...] to monitor his weight and BEARD symptoms. Addendum Note - Esteban Maguire MD - 01/04/2020 11:15 AM CDT Addended by: ESTEBAN MAGUIRE on: 01/04/2020 04:22 PM Modules accepted: Orders documented in this encounter Plan of Treatment Date Type Specialty Care Team Description 03/06/2020 Office Visit Cardiology Esteban Maguire MD [address] [place] [address] [phone] Name Type Priority Associated Diagnoses Date/Ti me LOW-DENSITY LAB Routine Coronary artery disease 11/2019 11:29 AM CDT LIPOPROTEIN, DIRECT involving cocopah rosanna nary artery of cocopah heart without angina pectoris Name Type Priority Associated Diagnoses Order S chedule THYROID STIMULATING LAB Add-on Coronary artery disea se Ordered: 01/04/2020 HORMONE involving cocopah coronary artery of cocop[place] heart without angina pectoris Health Maintenance Due [...] encounter Procedures Procedure Name Priority Date/Time Associated Comments Diagnosis LOW-DENSITY Routine 01/04/2020 11:29 Coronary artery Results for this LIPOPROTEIN, DIRECT AM CDT disease involving pro cedure are in [place] coronary the results artery of [place]op[place] section. heart without angina pectoris N-TERMINAL PRO-BNP Routine 01/04/2020 11:29 Coronary artery Re sults for this AM CDT disease involving procedure are in [place] coronary the results artery of [place] section. heart without angina pectoris GLYCOSYLATED Routine 01/04/2020 11:29 Coronary artery Results for this HEMOGLOBIN (A1C) AM CDT disease involving proced ure are in [place] coronary the results artery of [place]op[place] section. heart without angina pectoris CBC WITH DIFF Routine 01/04/2020 11:29 Coronary artery Results for this AM CDT disease involving procedure are in [place] coronary the results artery of [place]op[place] section. heart without angina pectoris LIPID PANEL Routine 01/04/2020 11:29 Coronary artery Results for this (01576)(TOTAL AM CDT disease involving procedure are in CHOLESTEROL, [place] coronary the results TRIGLYCERIDES, HDL) artery of cocopah sect ion. heart without angina pectoris COMP. METABOLIC PANEL Routine 01/04/2020 11:29 Coronary artery Results for this (61039) AM CDT disease involving procedure are in [place] coronary the results artery of cocop[place] section. heart without angina pectoris documented in this encounter Results N-TERMINAL PRO-BNP (01/04/2020 11:29 AM CDT) Pathologist Sig nature NT-proBNP 2,920 (H) <=125 pg/mL [facility] Specimen Blood Narrative Performed At Biotin has been reported to cause a negative [facility] bias, interpret results relative to patient's use of biotin. Performing Organization Address City/State/Zipcode Phone Number [facility] CLIA: [id number] [place], [place] [id number] LABORATORY [address] [facility] LOW-DENSITY LIPOPROTEIN, DIRECT (01/04/2020 11:29 AM CDT) Pathologist Sig nature dLDL Chol 81 <130 mg/dL [facility] Specimen Blood Performing Organization Address City/State/Zipcode Phone Number [facility] CLIA: [id number] [place] [address] [place] [address] LIPID PANEL (38925)(TOTAL CHOLESTEROL, TRIGLYCERIDES, HDL) (01/04/2020 11:29 AM CDT) CHOL 184 120 - 200 [facility] mg/dL [facility] HDL 31 (L) >40 mg/dL [facility] HDLC RATIO 5.9 (H) <=5.0 [facility] TRIG 588 (H) 30 - 170 mg/dL [facility] LDL CHOL Comment: Unable to [facility] calculate LDL due to HOSPITAL LAB[facility]ORY elevated triglyceride level greater than 400 mg/dL. VLDL 118 (H) 5 - 60 mg/dL [facility] Specimen Blood Performing Organization Address City[facility] Phone Number [facility] CLIA: [id number] [place] [address] GLYCOSYLATED HEMOGLOBIN (A1C) (01/04/2020 11:29 AM CDT) Pathologist Sig nature HGB A1C 9.1 (H) 4.0 - 6.0 % [facility] Specimen Blood Narrative Performed At %A1C (NGSP) Interpretation (ADA) [facility] 4.8-5.6 Normal or (Non-Diabetic Ra nge) 5.7-6.4 Increased Risk (Pre-Diabet ic) >6.5 Diabetes Indicated Performing Organization Address City/[facility] Phone Number [facility] CLIA: [id number] [place] [address] COMP. METABOLIC PANEL (17881) (01/04/2020 11:29 AM CDT) NA 134 (L) 135 - 145 [facility] mmol/L [facility] K 4.8 3.5 - 5.0 [facility] mmol/L [facility] CL 97 (L) 98 - 108 mmol/L [facility] CO2 TOTAL 28 23 - 31 mmol/L [facility] AGAP 9 2 - 16 [facility] BUN 30 (H) 7 - 23 mg/dL [facility] GLUCOSE 608 (HH) 70 - 110 mg/dL [facility] CREATININE 4.41 (H) 0.60 - 1.25 [facility] mg/dL [facility] TOTAL BILI 0.5 0.1 - 1.1 mg/dL [facility] CALCIUM 8.2 (L) 8.6 - 10.6 [facility] mg/dL [facility] T PROTEIN 6.2 (L) 6.3 - 8.2 g/dL [facility] ALBUMIN 3.3 (L) 3.5 - 5.0 g/dL [facility] ALK PHOS 168 (H) 34 - 122 U/L [facility] ALTv 28 5 - 50 U/L [facility] AST(SGOT) 30 13 - 40 U/L [facility] eGFR Calculation 14.2 mL/min/1.73m2 [facility] ([facility] LABORATORY [place]) eGFR Calculation 17.2 mL/min/1.73m2 [facility] () [facility] Specimen Blood Narrative Performed At Association of Glomerular Filtration Rate (GFR) [facility] and Staging of Kidney Disease* [...] tests). Performing Organization Address City/State/Zipcode Phone Number [facility] CLIA: [id number] [place] [address] CBC WITH DIFF (01/04/2020 11:29 AM CDT) Pathologist Sig nature WBC 5.09 4.20 - 10.70 [facility] 10*3/L HOSPITAL LABORATORY RBC 3.65 (L) 4.26 - 5.52 [facility] 10*6/L HOSPITAL LAB[facility]ORY HGB 12.2 12.2 - 16.4 [facility] g/dL [facility]OSPITAL LAB[facility] HCT 35.3 (L) 38.4 - 49.3 % [facility] MCV 96.7 (H) 81.7 - 95.6 fL [facility] MCH 33.4 (H) 26.1 - 32.7 pg [facility] MCHC 34.6 31.2 - 35.0 [facility] g/dL [facility] RDW-SD 47.7 38.5 - 51.6 fL [facility] RDW-CV 13.5 12.1 - 15.4 % [facility] PLT 127 (L) 150 - 328 [facility] 10*3/L HOSPITAL LABORATORY MPV 13.0 9.8 - 13.0 fL [facility] NRBC/100 WBC 0.0 0.0 - 10.0 /100 [facility] WBCs [facility] NRBC x10^3 <0.01 10*3/L [facility] GRAN MAT (NEUT) % 63.6 % [facility] IMM GRAN % 0.60 % [facility] LYMPH % 22.6 % [facility] MONO % 7.7 % [facility] EOS % 4.7 % [facility] BASO % 0.8 % [facility] GRAN MAT x10^3(ANC) 3.24 1.99 - 6.95 [facility] 10*3/uL HOSPITAL LABORATORY IMM GRAN x10^3 0.03 0.00 - 0.06 [facility] 10*3/uL HOSPITAL LABORATORY LYMPH x10^3 1.15 1.09 - 3.23 [facility] 10*3/uL HOSPITAL LABORATORY MONO x10^3 0.39 0.36 - 1.02 [facility] 10*3/uL HOSPITAL LABORATORY EOS x10^3 0.24 0.06 - 0.53 [facility] 10*3/uL HOSPITAL LABORATORY BASO x10^3 0.04 0.01 - 0.09 [facility] 10*3/uL HOSPITAL [facility]ORY Specimen Blood Performing Organization Address City/State/Zipcode Phone Number [facility] CLIA: [id number] [place] [address] documented in this encounter Visit Diagnoses Diagnosis Coronary artery disease involving cocopah coronary artery of [place]op[place] heart without angina pectoris documented in this encounter Additional Health Concerns Infection Onset Date Last Indicated Resolved Time COVID-19 Rule Out 01/04/2020 01/04/2020 documented as of this encounter Insurance Payer Benefit Plan / Subscriber ID Effective Phone Address T ype Group Dates [facility] [id number] 2019-[facility] [phone] [address] [employer] HEALTH [employer] [id number] [place] [address] documented as of this encounter"
[2020-01-13] MEDS ORDERED: levETIRAcetam 1,000 MG in NA CHLORIDE 0.9% 100 ML IV ONE (17:45)
[2020-01-13 17:59] LABS: Absolute Lymphocytes (CBC) 1.5 K/uL (0.7-4.9); Basophils % 1.3 % (0-1.3); Hematocrit 39.8 % (39.6-49.0); Lymphocytes % 21.8 % (15.3-44.8); MPV 11.5 fL (7.6-11.3); RBC Red Blood Cell Count 4.11 M/uL (4.33-5.43)
[2020-01-13] MEDS ORDERED: RSI MEDICATION KIT IV ONE (18:19)
[2020-01-13] MEDS ORDERED: NA CHLORIDE 0.9% 1,000 ML ONE (18:19)
[2020-01-13] MEDS ORDERED: LORazepam 2 MG/ML VIAL ONE (18:19)
[2020-01-13] MEDS ORDERED: NA CHLORIDE 0.9% 250 ML ONE (18:19)
[2020-01-13] MEDS ORDERED: FOSPHENYTOIN PE 500 MG/10 ML VIAL ONE (18:21)
[2020-01-13 18:39] LABS: ALT/SGPT 36 U/L (12-78); Albumin 2.7 g/dL (3.4-5.0); Alkaline Phosphatase 154 U/L (45-117); BUN Blood Urea Nitrogen 25 mg/dL (7-18); Bicarbonate 24 mmol/L (21-32); Bilirubin Direct < 0.1 mg/dL (0-0.2); Bilirubin Total 0.4 mg/dL (0.2-1.0); Glucose Level 365 mg/dL (74-106); Lipase 174 U/L (73-393); Sodium Level 138 mmol/L (136-145)
[2020-01-13 18:43] LABS: AST/SGOT 21 U/L (15-37); Potassium 4.3 mmol/L (3.5-5.1)
--- NOTE | 2020-01-13 19:21 | EDPHYS ---
Physician Documentation [facility] Name: Wero Kwong Age: 54 yrs Sex: Male : 1965 Arrival Date: 01/13/2020 Time: 16:08 Bed 8 Private MD: ED Physician Juan Mishra HPI: 01/12 19:26 This 54 yrs old Male presents to ER via Wheelchair with complaints of Low BP, snw Probable Seizure. 19:26 The patient presents after having a single isolated seizure, that lasted 1 minute(s). snw Character of seizure(s): stiffening and drooling at dialysis. Seizure onset: during dialysis. Context: the seizure(s) was witnessed, Dialysis nurse. Seizure Hx: Seizure medications: Keppra. Current symptoms: improved. It is unknown whether or not the patient has had similar symptoms in the past. It is unknown whether or not the patient has recently seen a physician. Historical: - Allergies: 16:28 Codeine; iw 16:28 Hydrocodone-Acetaminophen; iw 16:28 Morphine; iw - Home Meds: 16:28 calcium acetate 667 mg Oral cap 1 caps twice a day [Active]; citalopram 20 mg tab 1 tab iw once daily [Active]; clonazepam 0.5 mg Oral tab as needed [Active]; gabapentin 300 mg Oral cap 3 caps twice a day [Active]; isosobide 60 mg daily [Active]; levetiracetam 500 mg Oral tab 1 tab 2 times per day [Active]; lisinopril 10 mg Oral tab 1 tab once daily [Active]; methocarbamol 500 mg Oral tab as needed [Active]; metoclopramide HCl 10 mg Oral tab [Active]; Nephro-Steven 0.8 mg Oral tab daily [Active]; Novolog 100 unit/mL Sub-Q soln three times a day [Active]; ondansetron HCl 8 mg Oral tab 1 tab every 8 hours [Active]; pantoprazole 40 mg Oral TbEC 1 tab once daily [Active]; sevelamer carbonate 800 mg Oral tab 1 tab twice a day [Active]; simvastatin 40 mg Oral tab 1 tab once daily [Active]; Toujeo SoloStar 300 unit/mL (1.5 mL) subcutaneous inpn 65 unit daily [Active]; tramadol 50 mg Oral tab 1 tab as needed [Active]; - PMHx: 16:28 CAD; Cirrhosis; CHF; CVA; Diabetes - IDDM; dialysis (); High Cholesterol; iw Hypertension; kidney failure; Myocardial infarction; neuropathy; Seizures; - PSHx: 16:28 dialysis prot right chest; iw - Immunization history:: Adult Immunizations up to date. - Social history:: Smoking status: Patient denies any tobacco usage or history of. ROS: 19:23 Constitutional: Negative for fever, chills, and weight loss, seizure at dialysis clinic snw Eyes: Negative for injury, pain, redness, and discharge, ENT: Negative for injury, pain, and discharge, Neck: Negative for injury, pain, and swelling, Cardiovascular: Negative for chest pain, palpitations, and edema, Respiratory: Negative for shortness of breath, cough, wheezing, and pleuritic chest pain, Abdomen/GI: Negative for abdominal pain, nausea, vomiting, diarrhea, and constipation, Back: Negative for injury and pain, : Negative for injury, bleeding, discharge, and swelling, MS/Extremity: Negative for injury and deformity, Skin: Negative for injury, rash, and discoloration, Neuro: Negative for headache, weakness, numbness, tingling, and seizure, Psych: Negative for depression, anxiety, suicide ideation, homicidal ideation, and hallucinations. Exam: 19:23 Constitutional: This is a well developed, well nourished patient who is awake, alert, snw and in no acute distress. Head/Face: Normocephalic, atraumatic. ENT: Nares patent. No nasal discharge, no septal abnormalities noted. Tympanic membranes are normal and external auditory canals are clear. Oropharynx with no redness, swelling, or masses, exudates, or evidence of obstruction, uvula midline. Mucous membranes moist. Neck: Trachea midline, no thyromegaly or masses palpated, and no cervical lymphadenopathy. Supple, full range of motion without nuchal rigidity, or vertebral point tenderness. No Meningismus. Chest/axilla: Normal chest wall appearance and motion. Nontender with no deformity. No lesions are appreciated. Cardiovascular: Regular rate and rhythm with a normal S1 and S2. No gallops, murmurs, or rubs. Normal PMI, no JVD. No pulse deficits. Respiratory: Lungs have equal breath sounds bilaterally, clear to auscultation and percussion. No rales, rhonchi or wheezes noted. No increased work of breathing, no retractions or nasal flaring. Abdomen/GI: Soft, non-tender, with normal bowel sounds. No distension or tympany. No guarding or rebound. No evidence of tenderness throughout. Back: No spinal tenderness. No costovertebral tenderness. Full range of motion. Skin: Warm, dry with normal turgor. Normal color with no rashes, no lesions, and no evidence of cellulitis. Neuro: Awake and alert, GCS 15, oriented to person, place, time, and situation. Cranial nerves II-XII grossly intact. Motor strength 5/5 in all extremities. Sensory grossly intact. Cerebellar exam normal. Normal gait. Psych: Awake, alert, with orientation to person, place and time. Behavior, mood, and affect are within normal limits. 19:23 Eyes: Exam is negative for acute changes. Vital Signs: 16:23 BP 124 / 71; Pulse 72; Resp 16; Temp 98.8; Pulse Ox 98% on R/A; Weight 90.72 kg; Height iw 5 ft. 7 in. (170.18 cm); Pain 0/10; 17:20 BP 145 / 79; Pulse 73; Resp 18; Pulse Ox 95% ; sv 17:50 BP 150 / 81; Pulse 74; Resp 18; Pulse Ox 97% ; sv 18:40 BP 159 / 83; Pulse 72; Resp 18; Pulse Ox 97% ; sv 16:23 Body Mass Index 31.32 (90.72 kg, 170.18 cm) iw Jorge Coma Score: 17:03 Eye Response: spontaneous(4). Verbal Response: oriented(5). Motor Response: obeys ca1 commands(6). Total: 15. MDM: 18:25 Patient medically screened. snw 19:25 Data reviewed: vital signs, nurses notes. Data interpreted: Pulse oximetry: on room air snw is 97 %. Interpretation: normal. Counseling: I had a detailed discussion with the patient and/or guardian regarding: the historical points, exam findings, and any diagnostic results supporting the discharge/admit diagnosis, lab results, radiology results, the need for outpatient follow up, to return to the emergency department if symptoms worsen or persist or if there are any questions or concerns that arise at home. Response to treatment: the patient's symptoms have markedly improved after treatment. Special discussion: I have referred the patient to see his PCP for further evaluation of high blood pressure. Based on the patient's history, exam and DX evaluation, there is no indication for emergent intervention or inpatient TX. It is understood by the patient/guardian that if the SXs persist or worsen they need to return immediately for re-evaluation. Based on the history and exam findings, there is no indication for further emergent testing or inpatient evaluation. I discussed with the patient/guardian the need to see the primary care provider for further evaluation of the symptoms. 01/12 17:18 Order name: Basic Metabolic Panel; Complete Time: 18:49 snw 01/12 17:18 Order name: CBC with Diff; Complete Time: 18:16 snw 01/12 17:18 Order name: Hepatic Function; Complete Time: 18:49 snw 01/12 17:18 Order name: Lipase; Complete Time: 18:49 snw 01/12 17:18 Order name: AMMONIA; Complete Time: 18:16 snw 01/12 17:18 Order name: IV Saline Lock; Complete Time: 17:35 snw 01/12 17:18 Order name: Labs collected and sent; Complete Time: 17:35 snw Administered Medications: 18:01 Drug: Keppra 1000 mg Route: IV; Rate: calculated rate; Site: right wrist; ca1 18:20 Follow up: Response: No adverse reaction; IV Status: Completed infusion ca1 Disposition: 01/13 14:05 Co-signature as Attending Physician, Juan Mishra MD I agree with the assessment and kdr plan of care. Disposition: 01/13/20 19:20 Discharged to Home. Impression: Epileptic seizures related to external causes, Hyperammonemia. - Condition is Stable. - Discharge Instructions: Seizure, Adult, Dialysis Diet. - Medication Reconciliation Form, Thank You Letter, Antibiotic Education, Prescription Opioid Use form. - Follow up: Emergency Department; When: As needed; Reason: Worsening of condition. Follow up: Private Physician; When: 2 - 3 days; Reason: Recheck today's complaints, Continuance of care, Re-evaluation by your physician. Signatures: Dispatcher MedHo Juan Welsh MD MD kdr Waters, Shelly, KEY ACCOUNT COORDINATOR-C KEY ACCOUNT COORDINATOR-Csnw Agata Krishna, RN RN iw Abigail Laguna RN RN ca1 Corrections: (The following items were deleted from the chart) 01/12 19:34 19:20 01/13/2020 19:20 Discharged to Home. Impression: Epileptic seizures related to ca1 external causes; Hyperammonemia. Condition is Stable. Forms are Medication Reconciliation Form, Thank You Letter, Antibiotic Education, Prescription Opioid Use. Follow up: Emergency Department; When: As needed; Reason: Worsening of condition. Follow up: Private Physician; When: 2 - 3 days; Reason: Recheck today's complaints, Continuance of care, Re-evaluation by your physician. snw
--- NOTE | 2020-01-13 19:21 | ER ---
Nurse's Notes [facility] Name: Wero Kwong Age: 54 yrs Sex: Male : 1965 Arrival Date: 01/13/2020 Time: 16:08 Bed 8 Private MD: Diagnosis: Epileptic seizures related to external causes;Hyperammonemia Presentation: 01/12 16:23 Chief complaint: Spouse and/or significant other states: had a seizure while at dialysis today around 2 pm, has hx of seizures, takes levetiracetam for sz, last sz was two years ago, also states his BP dropped while at dialysis and he has also had a cough and just wants to get checked out, COVD swab was negative a week ago at [facility]. was told by dialysis nurse that pt was talking then he stopped talking and he stiffened up and they rolled him on his side bc he had a lot of drool in his mouth. Coronavirus screen: The client reports previous COVID testing was negative. Coronavirus screen: cough unrelated to allergies. Ebola Screen: Patient negative for fever greater than or equal to 101.5 degrees Fahrenheit, and additional compatible Ebola Virus Disease symptoms Patient denies exposure to infectious person. Patient denies travel to an Ebola-affected area in the 21 days before illness onset. No symptoms or risks identified at this time. Initial Sepsis Screen: Does the patient meet any 2 criteria? No. Patient's initial sepsis screen is negative. Does the patient have a suspected source of infection? No. Patient's initial sepsis screen is negative. Risk Assessment: Do you want to hurt yourself or someone else? Patient reports no desire to harm self or others. Onset of symptoms was January 13, 2020. 16:23 Method Of Arrival: Wheelchair iw 16:23 Acuity: [place] 3 iw Historical: - Allergies: 16:28 Codeine; iw 16:28 Hydrocodone-Acetaminophen; iw 16:28 Morphine; iw - Home Meds: 16:28 calcium acetate 667 mg Oral cap 1 caps twice a day [Active]; citalopram 20 mg tab 1 tab iw once daily [Active]; clonazepam 0.5 mg Oral tab as needed [Active]; gabapentin 300 mg Oral cap 3 caps twice a day [Active]; isosobide 60 mg daily [Active]; levetiracetam 500 mg Oral tab 1 tab 2 times per day [Active]; lisinopril 10 mg Oral tab 1 tab once daily [Active]; methocarbamol 500 mg Oral tab as needed [Active]; metoclopramide HCl 10 mg Oral tab [Active]; Nephro-Steven 0.8 mg Oral tab daily [Active]; Novolog 100 unit/mL Sub-Q soln three times a day [Active]; ondansetron HCl 8 mg Oral tab 1 tab every 8 hours [Active]; pantoprazole 40 mg Oral TbEC 1 tab once daily [Active]; sevelamer carbonate 800 mg Oral tab 1 tab twice a day [Active]; simvastatin 40 mg Oral tab 1 tab once daily [Active]; Toujeo SoloStar 300 unit/mL (1.5 mL) subcutaneous inpn 65 unit daily [Active]; tramadol 50 mg Oral tab 1 tab as needed [Active]; - PMHx: 16:28 CAD; Cirrhosis; CHF; CVA; Diabetes - IDDM; dialysis (); High Cholesterol; iw Hypertension; kidney failure; Myocardial infarction; neuropathy; Seizures; - PSHx: 16:28 dialysis prot right chest; iw - Immunization history:: Adult Immunizations up to date. - Social history:: Smoking status: Patient denies any tobacco usage or history of. Screenin:01 Abuse screen: Denies threats or abuse. Denies injuries from another. Nutritional ca1 screening: No deficits noted. Tuberculosis screening: No symptoms or risk factors identified. Fall Risk Fall in past 12 months (25 points). Secondary diagnosis (15 points) seizures, Total Morales Fall Scale indicates Low Risk Score (25-44 pts). Fall prevention measures have been instituted. Side Rails Up X 2 As available Patient and Family Educated on Fall Prevention Program and strategies. Assessment: 16:28 Reassessment: [place] . iw 17:01 General: Appears in no apparent distress. comfortable, Behavior is calm, cooperative, ca1 appropriate for age. Pain: Denies pain. Neuro: Level of Consciousness is awake, alert, obeys commands, Oriented to person, place, time, situation, Academic Services Coordinator are equal bilaterally Moves all extremities. Speech is normal, Seizure activity reported prior to arrival. Cardiovascular: Heart tones S1 S2 present Capillary refill < 3 seconds Patient's skin is warm and dry. Respiratory: Airway is patent Respiratory effort is even, unlabored, Respiratory pattern is regular, symmetrical, Breath sounds are clear bilaterally. GI: Abdomen is round non-distended, Bowel sounds present X 4 quads. Abd is soft and non tender X 4 quads. : No signs and/or symptoms were reported regarding the genitourinary system. EENT: No signs and/or symptoms were reported regarding the EENT system. Derm: Skin is intact, is healthy with good turgor, Skin is pink, warm \T\ dry. Musculoskeletal: Circulation, motion, and sensation intact. Capillary refill < 3 seconds. 17:39 Reassessment: Patient appears in no apparent distress at this time. Patient and/or ca1 family updated on plan of care and expected duration. Pain level reassessed. Patient is alert, oriented x 3, equal unlabored respirations, skin warm/dry/pink. Respiratory: Reports cough that is since 1 week ago. 18:47 Reassessment: Patient appears in no apparent distress at this time. Patient and/or ca1 family updated on plan of care and expected duration. Pain level reassessed. Patient is alert, oriented x 3, equal unlabored respirations, skin warm/dry/pink. 19:20 Reassessment: Patient appears in no apparent distress at this time. Patient is alert, ca1 oriented x 3, equal unlabored respirations, skin warm/dry/pink. Vital Signs: 16:23 BP 124 / 71; Pulse 72; Resp 16; Temp 98.8; Pulse Ox 98% on R/A; Weight 90.72 kg; Height iw 5 ft. 7 in. (170.18 cm); Pain 0/10; 17:20 BP 145 / 79; Pulse 73; Resp 18; Pulse Ox 95% ; sv 17:50 BP 150 / 81; Pulse 74; Resp 18; Pulse Ox 97% ; sv 18:40 BP 159 / 83; Pulse 72; Resp 18; Pulse Ox 97% ; sv 16:23 Body Mass Index 31.32 (90.72 kg, 170.18 cm) iw Jorge Coma Score: 17:03 Eye Response: spontaneous(4). Verbal Response: oriented(5). Motor Response: obeys ca1 commands(6). Total: 15. ED Course: 16:08 Patient arrived in ED. ds1 16:26 Triage completed. iw 16:28 Arm band placed on. iw 16:56 Abigail Laguna, HAYLEE is Primary Nurse. ca1 17:01 Patient has correct armband on for positive identification. Bed in low position. Call ca1 light in reach. Side rails up X2. Seizure precautions initiated. Pulse ox on. NIBP on. Door closed. Noise minimized. Lights dimmed. Warm blanket given. 17:16 Nara London FNP-C is PHCP. snw 17:16 Juan Mishra MD is Attending Physician. snw 17:35 No provider procedures requiring assistance completed. Initial lab(s) drawn, by me, ca1 sent to lab. Inserted saline lock: 20 gauge in right wrist, using aseptic technique. Blood collected. 19:30 IV discontinued, intact, bleeding controlled, No redness/swelling at site. Pressure ca1 dressing applied. Administered Medications: 18:01 Drug: Keppra 1000 mg Route: IV; Rate: calculated rate; Site: right wrist; ca1 18:20 Follow up: Response: No adverse reaction; IV Status: Completed infusion ca1 Outcome: 19:20 Discharge ordered by . snw 19:30 Discharged to home via wheelchair, with family. ca1 19:30 Condition: stable 19:30 Discharge instructions given to patient, Instructed on discharge instructions, follow up and referral plans. Demonstrated understanding of instructions, follow-up care. 19:34 Patient left the ED. ca1 Signatures: Sravani Ballard RN RN Nara London FNP-C BIODIESEL PRODUCTION ASSOCIATE-Csn Chelsea Keita ds1 Agata Krishna RN RN Abigail Laguna RN RN ca1 Corrections: (The following items were deleted from the chart) 16:26 16:23 Chief complaint: Spouse and/or significant other states: had a seizure while at dialysis today around 2 pm, has hx of seizures, takes levetiracetam for sz, last sz was two years ago, also states his BP dropped while at dialysis and he has also had a cough and just wants to get checked out, COVD swab was negative a week ago at [facility].
[2020-01-13 20:05] VITALS: TEMP 98.8
[2020-01-13 20:08] VITALS: O2SAT 97
[2020-01-13 20:09] VITALS: BP 159/83
== END 2020-01-13 19:34 | disposition home or self-care (01) ==
LOC: ER 16:06
DX: E72.20 Disorder of urea cycle metabolism, unspecified (principal); E11.22 Type 2 diabetes mellitus with diabetic chronic kidney disease; N18.6 End stage renal disease; I12.0 Hypertensive chronic kidney disease with stage 5 chronic kidney disease or end stage renal disease; Z99.2 Dependence on renal dialysis; Z79.4 Long term (current) use of insulin; Z88.5 Allergy status to narcotic agent
CPT/HCPCS: 96365; 85025; 80048; 36415; 82140; 80076; 83690; 99284; Q2009; J1953; J7050; J7030

== ENCOUNTER 2020-03-24 12:27 | Emergency (ER) | payer OTHER ==
--- OUTSIDE RECORDS SUMMARY | 2020-03-24 12:34 | XMS REPORT | Clinical Summary ---
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 Cirrhosis 12/01/2016 Hypertriglyceridemia 12/01/2016 Depression 12/01/2016 Encounters Date Type Specialty Care Team Description 12/30/2019 Travel 12/28/2019 Emergency Emergency Medicine Mirtha Palomino-Dionte Hypervole cristóbal, unspecified hypervolemia type (Primary Dx); MD Aniceto Hyperkalemia 12/28/2019 Travel 08/09/2019 Telephone Ophthalmology Barbi Suarez MD 07/19/2019 Patient Outreach Quality Ana Paula Martin, HAYLEE 07/19/2019 Telephone Ophthalmology Barbi Suarez MD 07/03/2019 Documentation General Internal Lupe, Guillermo Tellez RN 07/02/2019 Telephone Ophthalmology Jennifer Tyler MD 07/01/2019 Ophth Exam Ophthalmology Shea Whitehead MD 07/01/2019 Telephone Ophthalmology Dana Llamas MA 06/12/2019 Hospital Encounter General Internal Guillermo Jeffery Acute renal failure, unspecified acute renal failure type (HCC) (Primary Dx); - Medicine MD Ryan Tachycardia; 07/16/2019 Tomi, Chest pain, uns pecified type; Milton Schumacher [place] morocho br izzy; MD Adelfo Chronic hyperte nsion; Coronary arteri osclerosis due to lipid rich plaque; Controlled type 2 diabetes mellitus with other specified complication, without long-term current use of insulin (HCC); Nausea vomiting and diarrhea; Hyperglycemia; Cirrhosis of li [place]ore[place] without ascites, unspecified hepatic cirrhosis type (HCC); Essential hyper tension; Coronary artery disease involving navajo coronary artery of navajo heart with angina pectoris (HCC); Current mild ep isode of major depressive disorder without prior episode (HCC); 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); Diabetic periph eral neuropathy (HCC); Diarrhea, unspe cified type; Edema of left o rbit; Hypertriglyceri demia; 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 Surgical History Surgery Date Site/Laterality Comments CHOLECYSTECTOMY Medical History Medical History Date Comments Hypertension Type 2 diabetes mellitus (HCC) Hyperlipemia Neuropathy Myocardial infarction (HCC) Cirrhosis (HCC) 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 POC GLUCOSE Routine 07/05/2019 [...] Routine 07/03/2019 9:52 Results for this PM FUEL QUALITY TECH procedure are i n the results section. POC GLUCOSE Routine 07/03/2019 4:16 Results for this PM FUEL QUALITY TECH procedure are i n the results section. POC GLUCOSE Routine 07/03/2019 12:31 Results for this PM FUEL QUALITY TECH procedure are i n the results section. POC GLUCOSE Routine 07/03/2019 11:50 Results for this AM FUEL QUALITY TECH procedure are i n the results section. POC GLUCOSE Routine 07/03/2019 7:48 Results for this AM FUEL QUALITY TECH procedure are i n the results section. ESTIMATED GFR Routine 07/03/2019 4:00 Results fo r this AM FUEL QUALITY TECH procedure are i n the results section. VANCOMYCIN LEVEL, RANDOM Routine 07/03/2019 4:00 Results for this AM FUEL QUALITY TECH procedure are i n the results section. PHOSPHORUS LEVEL Routine 07/03/2019 4:00 Results for this AM FUEL QUALITY TECH procedure are i n the results section. MAGNESIUM LEVEL Routine 07/03/2019 4:00 Results for this AM FUEL QUALITY TECH procedure are i n the results section. BASIC METABOLIC PANEL Routine 07/03/2019 4:00 Re sults for this AM FUEL QUALITY TECH procedure are i n the results section. POC GLUCOSE Routine 07/02/2019 9:29 Results for this PM FUEL QUALITY TECH procedure are i n the results section. POC GLUCOSE Routine 07/02/2019 6:48 Results for this PM FUEL QUALITY TECH procedure are i n the results section. ESTIMATED GFR Routine 07/02/2019 4:05 Results fo r this PM FUEL QUALITY TECH procedure are i n the results section. BASIC METABOLIC PANEL Routine 07/02/2019 4:05 Re sults for this PM FUEL QUALITY TECH procedure are i n the results section. POC GLUCOSE Routine 07/02/2019 4:03 Results for this PM FUEL QUALITY TECH procedure are i n the results section. VENIPUNC NEED PHYS Routine 07/02/2019 2:59 Resul ts for this SKILL,DX OR RX PM FUEL QUALITY TECH procedure are in the results section. POC GLUCOSE Routine 07/02/2019 11:52 Results for this AM FUEL QUALITY TECH procedure are i n the results section. POC GLUCOSE Routine 07/02/2019 8:44 Results for this AM FUEL QUALITY TECH procedure are i n the results section. ESTIMATED GFR Routine 07/02/2019 4:00 Results fo r this AM FUEL QUALITY TECH procedure are i n the results section. PHOSPHORUS LEVEL Routine 07/02/2019 4:00 Results for this AM FUEL QUALITY TECH procedure are i n the results section. MAGNESIUM LEVEL Routine 07/02/2019 4:00 Results for this AM FUEL QUALITY TECH procedure are i n the results section. BASIC METABOLIC PANEL Routine 07/02/2019 4:00 Re sults for this AM FUEL QUALITY TECH procedure are i n the results section. VANCOMYCIN LEVEL, RANDOM Routine 07/02/2019 4:00 Results for this AM FUEL QUALITY TECH procedure are i n the results section. POC GLUCOSE Routine 07/01/2019 9:39 Results for this PM FUEL QUALITY TECH procedure are i n the results section. POC GLUCOSE Routine 07/01/2019 5:04 Results for this PM FUEL QUALITY TECH procedure are i n the results section. VANCOMYCIN LEVEL, TROUGH Timed 07/01/2019 2:30 Results for this PM FUEL QUALITY TECH procedure are i n the results section. POC GLUCOSE Routine 07/01/2019 12:20 Results for this PM FUEL QUALITY TECH procedure are i n the results section. POC GLUCOSE Routine 07/01/2019 8:33 Results for this AM FUEL QUALITY TECH procedure are i n the results section. POC GLUCOSE Routine 07/01/2019 4:13 Results for this AM FUEL QUALITY TECH procedure are i n the results section. ESTIMATED GFR Routine 07/01/2019 4:00 Results fo r this AM FUEL QUALITY TECH procedure are i n the results section. HEPATIC FUNCTION PANEL Routine 07/01/2019 4:00 R esults for this AM FUEL QUALITY TECH procedure are i n the results section. PHOSPHORUS LEVEL Routine 07/01/2019 4:00 Results for this AM FUEL QUALITY TECH procedure are i n the results section. MAGNESIUM LEVEL Routine 07/01/2019 4:00 Results for this AM FUEL QUALITY TECH procedure are i n the results section. BASIC METABOLIC PANEL Routine 07/01/2019 4:00 Re sults for this AM FUEL QUALITY TECH procedure are i n the results section. POC GLUCOSE Routine 06/30/2019 11:36 Results for this PM FUEL QUALITY TECH procedure are i n the results section. POC GLUCOSE Routine 06/30/2019 9:09 Results for this PM FUEL QUALITY TECH procedure are i n the results section. POC GLUCOSE Routine 06/30/2019 5:15 Results for this PM FUEL QUALITY TECH procedure are i n the results section. POC GLUCOSE Routine 06/30/2019 2:40 Results for this PM FUEL QUALITY TECH procedure are i n the results section. POC GLUCOSE Routine 06/30/2019 11:58 Results for this AM FUEL QUALITY TECH procedure are i n the results section. SURGICAL PATHOLOGY Routine 06/30/2019 11:36 Resul ts for this REQUEST AM FUEL QUALITY TECH procedure are i n the results section. POC GLUCOSE Routine 06/30/2019 10:00 Results for this AM FUEL QUALITY TECH procedure are i n the results section. IR TRANSJUGULAR LIVER Routine 06/30/2019 9:39 Re sults for this BIOPSY AM FUEL QUALITY TECH procedure are i n the results section. ESTIMATED GFR Routine 06/30/2019 4:03 Results fo r this AM FUEL QUALITY TECH procedure are i n the results section. VANCOMYCIN LEVEL, RANDOM Routine 06/30/2019 4:03 Results for this AM FUEL QUALITY TECH procedure are i n the results section. HEPATIC FUNCTION PANEL Routine 06/30/2019 4:03 R esults for this AM FUEL QUALITY TECH procedure are i n the results section. PHOSPHORUS LEVEL Routine 06/30/2019 4:03 Results for this AM FUEL QUALITY TECH procedure are i n the results section. MAGNESIUM LEVEL Routine 06/30/2019 4:03 Results for this AM FUEL QUALITY TECH procedure are i n the results section. BASIC METABOLIC PANEL Routine 06/30/2019 4:03 Re sults for this AM FUEL QUALITY TECH procedure are i n the results section. POC GLUCOSE Routine 06/29/2019 9:21 Results for this PM FUEL QUALITY TECH procedure are i n the results section. POC GLUCOSE Routine 06/29/2019 4:06 Results for this PM FUEL QUALITY TECH procedure are i n the results section. POC GLUCOSE Routine 06/29/2019 12:30 Results for this PM FUEL QUALITY TECH procedure are i n the results section. POC GLUCOSE Routine 06/29/2019 8:25 Results for this AM FUEL QUALITY TECH procedure are i n the results section. ESTIMATED GFR Routine 06/29/2019 4:54 Results fo r this AM FUEL QUALITY TECH procedure are i n the results section. HEPATIC FUNCTION PANEL Routine 06/29/2019 4:54 R esults for this AM FUEL QUALITY TECH procedure are i n the results section. VANCOMYCIN LEVEL, RANDOM Routine 06/29/2019 4:54 Results for this AM FUEL QUALITY TECH procedure are i n the results section. HC COMPLETE BLD COUNT Routine 06/29/2019 4:54 Re sults for this W/AUTO DIFF AM FUEL QUALITY TECH procedure are i n the results section. PHOSPHORUS LEVEL Routine 06/29/2019 4:54 Results for this AM FUEL QUALITY TECH procedure are i n the results section. MAGNESIUM LEVEL Routine 06/29/2019 4:54 Results for this AM FUEL QUALITY TECH procedure are i n the results section. BASIC METABOLIC PANEL Routine 06/29/2019 4:54 Re sults for this AM FUEL QUALITY TECH procedure are i n the results section. POC GLUCOSE Routine 06/28/2019 8:33 Results for this PM FUEL QUALITY TECH procedure are i n the results section. POC GLUCOSE Routine 06/28/2019 4:06 Results for this PM FUEL QUALITY TECH procedure are i n the results section. POC GLUCOSE Routine 06/28/2019 12:29 Results for this PM FUEL QUALITY TECH procedure are i n the results section. HEPATIC FUNCTION PANEL Routine 06/28/2019 12:23 R esults for this PM FUEL QUALITY TECH procedure are i n the results section. ECG 12-LEAD STAT 06/28/2019 9:41 Results for this AM FUEL QUALITY TECH procedure are i n the results section. POC GLUCOSE Routine 06/28/2019 9:14 Results for this AM FUEL QUALITY TECH procedure are i n the results section. HEPATIC FUNCTION PANEL Timed 06/28/2019 9:13 R esults for this AM FUEL QUALITY TECH procedure are i n the results section. TROPONIN Timed 06/28/2019 9:13 Results for this AM FUEL QUALITY TECH procedure are i n the results section. ESTIMATED GFR Routine 06/28/2019 5:22 Results fo r this AM FUEL QUALITY TECH procedure are i n the results section. VANCOMYCIN LEVEL, RANDOM Routine 06/28/2019 5:22 Results for this AM FUEL QUALITY TECH procedure are i n the results section. PHOSPHORUS LEVEL Routine 06/28/2019 5:22 Results for this AM FUEL QUALITY TECH procedure are i n the results section. MAGNESIUM LEVEL Routine 06/28/2019 5:22 Results for this AM FUEL QUALITY TECH procedure are i n the results section. BASIC METABOLIC PANEL Routine 06/28/2019 5:22 Re sults for this AM FUEL QUALITY TECH procedure are i n the results section. POC GLUCOSE Routine 06/27/2019 9:03 Results for this PM FUEL QUALITY TECH procedure are i n the results section. POC GLUCOSE Routine 06/27/2019 5:04 Results for this PM FUEL QUALITY TECH procedure are i n the results section. POC GLUCOSE Routine 06/27/2019 2:07 Results for this PM FUEL QUALITY TECH procedure are i n the results section. POC GLUCOSE Routine 06/27/2019 11:57 Results for this AM FUEL QUALITY TECH procedure are i n the results section. POC GLUCOSE Routine 06/27/2019 8:26 Results for this AM FUEL QUALITY TECH procedure are i n the results section. ECG 12-LEAD Routine 06/27/2019 8:13 Results for this AM FUEL QUALITY TECH procedure are i n the results section. ESTIMATED GFR Routine 06/27/2019 5:14 Results fo r this AM FUEL QUALITY TECH procedure are i n the results section. VANCOMYCIN LEVEL, RANDOM Routine 06/27/2019 5:14 Results for this AM FUEL QUALITY TECH procedure are i n the results section. PHOSPHORUS LEVEL Routine 06/27/2019 5:14 Results for this AM FUEL QUALITY TECH procedure are i n the results section. MAGNESIUM LEVEL Routine 06/27/2019 5:14 Results for this AM FUEL QUALITY TECH procedure are i n the results section. BASIC METABOLIC PANEL Routine 06/27/2019 5:14 Re sults for this AM F[employer]EL QUALITY TECH procedure are i n the results section. POC GLUCOSE Routine 06/26/2019 9:21 Results for this PM FUEL QUALITY TECH procedure are i n the results section. POC GLUCOSE Routine 06/26/2019 7:41 Results for this PM FUEL QUALITY TECH procedure are i n the results section. POC GLUCOSE Routine 06/26/2019 7:12 Results for this PM FUEL QUALITY TECH procedure are i n the results section. ULTRAFILTRATION Routine 06/26/2019 1:39 PM FUEL QUALITY TECH POC GLUCOSE Routine 06/26/2019 12:05 Results for this PM FUEL QUALITY TECH procedure are i n the results section. POC GLUCOSE Routine 06/26/2019 8:54 Results for this AM FUEL QUALITY TECH procedure are i n the results section. ESTIMATED GFR Routine 06/26/2019 6:25 Results fo r this AM FUEL QUALITY TECH procedure are i n the results section. VANCOMYCIN LEVEL, RANDOM Routine 06/26/2019 6:25 Results for this AM FUEL QUALITY TECH procedure are i n the results section. HC COMPLETE BLD COUNT Routine 06/26/2019 6:25 Re sults for this W/AUTO DIFF AM FUEL QUALITY TECH procedure are i n the results section. PHOSPHORUS LEVEL Routine 06/26/2019 6:25 Results for this AM FUEL QUALITY TECH procedure are i n the results section. MAGNESIUM LEVEL Routine 06/26/2019 6:25 Results for this AM FUEL QUALITY TECH procedure are i n the results section. BASIC METABOLIC PANEL Routine 06/26/2019 6:25 Re sults for this AM FUEL QUALITY TECH procedure are i n the results section. POC GLUCOSE Routine 06/25/2019 11:39 Results for this PM FUEL QUALITY TECH procedure are i n the results section. HEMODIALYSIS Routine 06/25/2019 9:44 PM FUEL QUALITY TECH POC GLUCOSE Routine 06/25/2019 9:14 Results for this PM FUEL QUALITY TECH procedure are i n the results section. ESTIMATED GFR Routine 06/25/2019 6:45 Results fo r this PM FUEL QUALITY TECH procedure are i n the results section. PHOSPHORUS LEVEL Routine 06/25/2019 6:45 Results for this PM FUEL QUALITY TECH procedure are i n the results section. BASIC METABOLIC PANEL Routine 06/25/2019 6:45 Re sults for this PM FUEL QUALITY TECH procedure are i n the results section. POC GLUCOSE Routine 06/25/2019 3:45 Results for this PM FUEL QUALITY TECH procedure are i n the results section. POC GLUCOSE Routine 06/25/2019 11:30 Results for this AM [employer]EL QUALITY TECH procedure are i n the results section. POC GLUCOSE Routine 06/25/2019 7:47 Results for this AM [employer]EL QUALITY TECH procedure are i n the results section. POC GLUCOSE Routine 06/25/2019 12:05 Results for this AM FUEL QUALITY TECH procedure are i n the results section. POC GLUCOSE Routine 06/24/2019 9:12 Results for this PM FUEL QUALITY TECH procedure are i n the results section. POC GLUCOSE Routine 06/24/2019 4:22 Results for this PM FUEL QUALITY TECH procedure are i n the results section. POC GLUCOSE Routine 06/24/2019 1:17 Results for this PM FUEL QUALITY TECH procedure are i n the results section. HEMODIALYSIS Routine 06/24/2019 11:11 AM FUEL QUALITY TECH POC GLUCOSE Routine 06/24/2019 7:35 Results for this AM FUEL QUALITY TECH procedure are i n the results section. ESTIMATED GFR Routine 06/24/2019 4:00 Results fo r this AM [employer]EL QUALITY TECH procedure are i n the results section. HC COMPLETE BLD COUNT Routine 06/24/2019 4:00 Re sults for this W/AUTO DIFF AM FUEL QUALITY TECH procedure are i n the results section. HEPATIC FUNCTION PANEL Routine 06/24/2019 4:00 R esults for this AM F[employer]EL QUALITY TECH procedure are i n the results section. PHOSPHORUS LEVEL Routine 06/24/2019 4:00 Results for this AM FUEL QUALITY TECH procedure are i n the results section. MAGNESIUM LEVEL Routine 06/24/2019 4:00 Results for this AM FUEL QUALITY TECH procedure are i n the results section. BASIC METABOLIC PANEL Routine 06/24/2019 4:00 Re sults for this AM FUEL QUALITY TECH procedure are i n the results section. POC GLUCOSE Routine 06/23/2019 6:00 Results for this PM FUEL QUALITY TECH procedure are i n the results section. HEMODIALYSIS Routine 06/23/2019 12:21 PM FUEL QUALITY TECH POC GLUCOSE Routine 06/23/2019 11:18 Results for this AM [employer]EL QUALITY TECH procedure are i n the results section. IR TUNNELED DIALYSIS Routine 06/23/2019 10:03 Res ults for this CATHETER PLACEMENT AM [employer]EL QUALITY TECH procedure are in the results section. POC GLUCOSE Routine 06/23/2019 9:54 Results for this AM FUEL QUALITY TECH procedure are i n the results section. POC GLUCOSE Routine 06/23/2019 8:19 Results for this AM FUEL QUALITY TECH procedure are i n the results section. ESTIMATED GFR Routine 06/23/2019 5:30 Results fo r this AM FUEL QUALITY TECH procedure are i n the results section. HC COMPLETE BLD COUNT Routine 06/23/2019 5:30 Re sults for this W/AUTO DIFF AM FUEL QUALITY TECH procedure are i n the results section. HEPATIC FUNCTION PANEL Routine 06/23/2019 5:30 R esults for this AM FUEL QUALITY TECH procedure are i n the results section. PHOSPHORUS LEVEL Routine 06/23/2019 5:30 Results for this AM FUEL QUALITY TECH procedure are i n the results section. MAGNESIUM LEVEL Routine 06/23/2019 5:30 Results for this AM FUEL QUALITY TECH procedure are i n the results section. BASIC METABOLIC PANEL Routine 06/23/2019 5:30 Re sults for this AM FUEL QUALITY TECH procedure are i n the results section. POC GLUCOSE Routine 06/22/2019 9:30 Results for this PM FUEL QUALITY TECH procedure are i n the results section. POC GLUCOSE Routine 06/22/2019 12:28 Results for this PM FUEL QUALITY TECH procedure are i n the results section. POC GLUCOSE Routine 06/22/2019 8:38 Results for this AM FUEL QUALITY TECH procedure are i n the results section. ESTIMATED GFR Routine 06/22/2019 4:30 Results fo r this AM FUEL QUALITY TECH procedure are i n the results section. HEPATIC FUNCTION PANEL Routine 06/22/2019 4:30 R esults for this AM FUEL QUALITY TECH procedure are i n the results section. HC COMPLETE BLD COUNT Routine 06/22/2019 4:30 Re sults for this W/AUTO DIFF AM F[employer]EL QUALITY TECH procedure are i n the results section. PHOSPHORUS LEVEL Routine 06/22/2019 4:30 Results for this AM FUEL QUALITY TECH procedure are i n the results section. MAGNESIUM LEVEL Routine 06/22/2019 4:30 Results for this AM FUEL QUALITY TECH procedure are i n the results section. BASIC METABOLIC PANEL Routine 06/22/2019 4:30 Re sults for this AM FUEL QUALITY TECH procedure are i n the results section. POC GLUCOSE Routine 06/22/2019 12:07 Results for this AM FUEL QUALITY TECH procedure are i n the results section. POC GLUCOSE Routine 06/21/2019 9:03 Results for this PM FUEL QUALITY TECH procedure are i n the results section. POC GLUCOSE Routine 06/21/2019 7:26 Results for this PM FUEL QUALITY TECH procedure are i n the results section. POC GLUCOSE Routine 06/21/2019 4:33 Results for this PM FUEL QUALITY TECH procedure are i n the results section. XR ABDOMEN 1 VW PORTABLE Routine 06/21/2019 4:08 Results for this PM [employer]EL QUALITY TECH procedure are i n the results section. POC GLUCOSE Routine 06/21/2019 11:46 Results for this AM [employer]EL QUALITY TECH procedure are i n the results section. POC GLUCOSE Routine 06/21/2019 8:15 Results for this AM FUEL QUALITY TECH procedure are i n the results section. ESTIMATED GFR Routine 06/21/2019 4:00 Results fo r this AM FUEL QUALITY TECH procedure are i n the results section. PHOSPHORUS LEVEL Routine 06/21/2019 4:00 Results for this AM FUEL QUALITY TECH procedure are i n the results section. MAGNESIUM LEVEL Routine 06/21/2019 4:00 Results for this AM FUEL QUALITY TECH procedure are i n the results section. BASIC METABOLIC PANEL Routine 06/21/2019 4:00 Re sults for this AM [employer]EL QUALITY TECH procedure are i n the results section. POC GLUCOSE Routine 06/20/2019 9:33 Results for this PM [employer]EL QUALITY TECH procedure are i n the results section. GRAM STAIN Routine 06/20/2019 5:32 Results for this PM F[employer]EL QUALITY TECH procedure are i n the results section. AEROBIC CULTURE Routine 06/20/2019 5:32 Results for this PM [employer]EL QUALITY TECH procedure are i n the results section. POC GLUCOSE Routine 06/20/2019 3:51 Results for this PM FUEL QUALITY TECH procedure are i n the results section. POC GLUCOSE Routine 06/20/2019 12:25 Results for this PM FUEL QUALITY TECH procedure are i n the results section. POC GLUCOSE Routine 06/20/2019 7:34 Results for this AM FUEL QUALITY TECH procedure are i n the results section. ESTIMATED GFR Routine 06/20/2019 4:00 Results fo r this AM FUEL QUALITY TECH procedure are i n the results section. PHOSPHORUS LEVEL Routine 06/20/2019 4:00 Results for this AM FUEL QUALITY TECH procedure are i n the results section. MAGNESIUM LEVEL Routine 06/20/2019 4:00 Results for this AM FUEL QUALITY TECH procedure are i n the results section. BASIC METABOLIC PANEL Routine 06/20/2019 4:00 Re sults for this AM FUEL QUALITY TECH procedure are i n the results section. HEPATIC FUNCTION PANEL Routine 06/20/2019 4:00 R esults for this AM FUEL QUALITY TECH procedure are i n the results section. POC GLUCOSE Routine 06/19/2019 9:31 Results for this PM FUEL QUALITY TECH procedure are i n the results section. PROTEIN, URINE, RANDOM Routine 06/19/2019 7:06 R esults for this PM FUEL QUALITY TECH procedure are i n the results section. CREATININE LEVEL, URINE, Routine 06/19/2019 7:06 Results for this RANDOM PM FUEL QUALITY TECH procedure are i n the results section. POC GLUCOSE Routine 06/19/2019 4:08 Results for this PM FUEL QUALITY TECH procedure are i n the results section. POC GLUCOSE Routine 06/19/2019 12:34 Results for this PM FUEL QUALITY TECH procedure are i n the results section. POC GLUCOSE Routine 06/19/2019 7:42 Results for this AM FUEL QUALITY TECH procedure are i n the results section. ESTIMATED GFR Routine 06/19/2019 12:00 Results fo r this AM FUEL QUALITY TECH procedure are i n the results section. PHOSPHORUS LEVEL Routine 06/19/2019 12:00 Results for this AM FUEL QUALITY TECH procedure are i n the results section. MAGNESIUM LEVEL Routine 06/19/2019 12:00 Results for this AM FUEL QUALITY TECH procedure are i n the results section. BASIC METABOLIC PANEL Routine 06/19/2019 12:00 Re sults for this AM F[employer]EL QUALITY TECH procedure are i n the results section. HEPATIC FUNCTION PANEL Routine 06/19/2019 12:00 R esults for this AM F[employer]EL QUALITY TECH procedure are i n the results section. ANTI MITOCHONDRIA SCREEN Routine 06/19/2019 12:00 Results for this AM FUEL QUALITY TECH procedure are i n the results section. ANTI SMOOTH MUSCLE AB Routine 06/19/2019 12:00 Re sults for this SCREEN AM [employer]EL QUALITY TECH procedure are i n the results section. POC GLUCOSE Routine 06/18/2019 9:10 Results for this PM FUEL QUALITY TECH procedure are i n the results section. POC GLUCOSE Routine 06/18/2019 4:07 Results for this PM FUEL QUALITY TECH procedure are i n the results section. POC GLUCOSE Routine 06/18/2019 11:14 Results for this AM FUEL QUALITY TECH procedure are i n the results section. POC GLUCOSE Routine 06/18/2019 7:29 Results for this AM FUEL QUALITY TECH procedure are i n the results section. URINE CULTURE Routine 06/18/2019 7:24 Results fo r this AM [employer]EL QUALITY TECH procedure are i n the results section. URINALYSIS SCREEN AND Routine 06/18/2019 5:30 Re sults for this MICROSCOPY, WITH REFLEX AM F[employer]EL QUALITY TECH proc edure are in TO CULTURE the results section. AMMONIA LEVEL Routine 06/18/2019 5:00 Results fo r this AM F[employer]EL QUALITY TECH procedure are i n the results section. HEPATITIS B SURFACE AB, Routine 06/18/2019 5:00 Results for this QUANTITATIVE AM FUEL QUALITY TECH procedure are i n the results section. HC COMPLETE BLD COUNT Routine 06/18/2019 5:00 Re sults for this W/AUTO DIFF AM FUEL QUALITY TECH procedure are i n the results section. PROTHROMBIN TIME WITH Routine 06/18/2019 5:00 Re sults for this INR AM FUEL QUALITY TECH procedure are i n the results section. ESTIMATED GFR Routine 06/18/2019 4:00 Results fo r this AM FUEL QUALITY TECH procedure are i n the results section. GGT Routine 06/18/2019 4:00 Results for this AM FUEL QUALITY TECH procedure are i n the results section. ANNE Routine 06/18/2019 4:00 Results for this AM FUEL QUALITY TECH procedure are i n the results section. ALPHA-1 ANTITRYPSIN Routine 06/18/2019 4:00 Resu lts for this LEVEL AM FUEL QUALITY TECH procedure are i n the results section. ALPHA FETOPROTEIN Routine 06/18/2019 4:00 Result s for this AM FUEL QUALITY TECH procedure are i n the results section. CERULOPLASMIN LEVEL Routine 06/18/2019 4:00 Resu lts for this AM FUEL QUALITY TECH procedure are i n the results section. HEPATITIS C ANTIBODY Routine 06/18/2019 4:00 Res ults for this AM FUEL QUALITY TECH procedure are i n the results section. HEPATITIS B SURFACE Routine 06/18/2019 4:00 Resu lts for this ANTIGEN AM FUEL QUALITY TECH procedure are i n the results section. HEPATITIS B SURFACE Routine 06/18/2019 4:00 Resu lts for this ANTIBODY AM FUEL QUALITY TECH procedure are i n the results section. HEPATITIS B CORE Routine 06/18/2019 4:00 Results for this ANTIBODY TOTAL AM FUEL QUALITY TECH procedure are in the results section. HEPATITIS B CORE Routine 06/18/2019 4:00 Results for this ANTIBODY IGM AM FUEL QUALITY TECH procedure are i n the results section. HEPATITIS A ANTIBODY IGM Routine 06/18/2019 4:00 Results for this AM FUEL QUALITY TECH procedure are i n the results section. PHOSPHORUS LEVEL Routine 06/18/2019 4:00 Results for this AM FUEL QUALITY TECH procedure are i n the results section. MAGNESIUM LEVEL Routine 06/18/2019 4:00 Results for this AM FUEL QUALITY TECH procedure are i n the results section. BASIC METABOLIC PANEL Routine 06/18/2019 4:00 Re sults for this AM FUEL QUALITY TECH procedure are i n the results section. HEPATIC FUNCTION PANEL Routine 06/18/2019 4:00 R esults for this AM FUEL QUALITY TECH procedure are i n the results section. POC GLUCOSE Routine 06/17/2019 9:17 Results for this PM FUEL QUALITY TECH procedure are i n the results section. POC GLUCOSE Routine 06/17/2019 5:07 Results for this PM FUEL QUALITY TECH procedure are i n the results section. US ABDOMEN COMPLETE Routine 06/17/2019 4:48 Resu lts for this PM FUEL QUALITY TECH procedure are i n the results section. US ABDOMINAL DOPPLER Routine 06/17/2019 4:48 Res ults for this PM FUEL QUALITY TECH procedure are i n the results section. US RENAL Routine 06/17/2019 2:26 Results for this PM FUEL QUALITY TECH procedure are i n the results section. POC GLUCOSE Routine 06/17/2019 11:38 Results for this AM FUEL QUALITY TECH procedure are i n the results section. POC GLUCOSE Routine 06/17/2019 8:22 Results for this AM FUEL QUALITY TECH procedure are i n the results section. TISSUE TRANSGLUTAMINASE Routine 06/17/2019 4:53 Results for this AB, IGA AM FUEL QUALITY TECH procedure are i n the results section. ESTIMATED GFR Routine 06/17/2019 4:53 Results fo r this AM FUEL QUALITY TECH procedure are i n the results section. PHOSPHORUS LEVEL Routine 06/17/2019 4:53 Results for this AM FUEL QUALITY TECH procedure are i n the results section. MAGNESIUM LEVEL Routine 06/17/2019 4:53 Results for this AM FUEL QUALITY TECH procedure are i n the results section. BASIC METABOLIC PANEL Routine 06/17/2019 4:53 Re sults for this AM FUEL QUALITY TECH procedure are i n the results section. CELIAC DISEASE REFLEXIVE Routine 06/17/2019 4:53 Results for this CASCADE AM FUEL QUALITY TECH procedure are i n the results section. POC GLUCOSE Routine 06/17/2019 12:44 Results for this AM FUEL QUALITY TECH procedure are i n the results section. POC GLUCOSE Routine 06/16/2019 9:02 Results for this PM FUEL QUALITY TECH procedure are i n the results section. POC GLUCOSE Routine 06/16/2019 4:27 Results for this PM FUEL QUALITY TECH procedure are i n the results section. POC GLUCOSE Routine 06/16/2019 12:07 Results for this PM FUEL QUALITY TECH procedure are i n the results section. ECG 12-LEAD Routine 06/16/2019 11:18 Results for this AM FUEL QUALITY TECH procedure are i n the results section. POC GLUCOSE Routine 06/16/2019 7:25 Results for this AM FUEL QUALITY TECH procedure are i n the results section. ESTIMATED GFR Routine 06/16/2019 4:00 Results fo r this AM FUEL QUALITY TECH procedure are i n the results section. PHOSPHORUS LEVEL Routine 06/16/2019 4:00 Results for this AM FUEL QUALITY TECH procedure are i n the results section. MAGNESIUM LEVEL Routine 06/16/2019 4:00 Results for this AM FUEL QUALITY TECH procedure are i n the results section. BASIC METABOLIC PANEL Routine 06/16/2019 4:00 Re sults for this AM FUEL QUALITY TECH procedure are i n the results section. POC GLUCOSE Routine 06/15/2019 8:49 Results for this PM FUEL QUALITY TECH procedure are i n the results section. POC GLUCOSE Routine 06/15/2019 4:31 Results for this PM FUEL QUALITY TECH procedure are i n the results section. FECAL CALPROTECTIN Routine 06/15/2019 4:30 Resul ts for this PM FUEL QUALITY TECH procedure are i n the results section. SPIROMETRY, DIFFUSION, Routine 06/15/2019 2:29 Tachycardia R esults for this LUNG VOLUMES PM FUEL QUALITY TECH procedure are i n the results section. POC GLUCOSE Routine 06/15/2019 12:27 Results for this PM FUEL QUALITY TECH procedure are i n the results section. US CAROTID DUPLEX Routine 06/15/2019 11:31 Result s for this BILATERAL AM FUEL QUALITY TECH procedure are i n the results section. POC GLUCOSE Routine 06/15/2019 7:24 Results for this AM FUEL QUALITY TECH procedure are i n the results section. ESTIMATED GFR Routine 06/15/2019 3:38 Results fo r this AM FUEL QUALITY TECH procedure are i n the results section. PHOSPHORUS LEVEL Routine 06/15/2019 3:38 Results for this AM FUEL QUALITY TECH procedure are i n the results section. MAGNESIUM LEVEL Routine 06/15/2019 3:38 Results for this AM FUEL QUALITY TECH procedure are i n the results section. BASIC METABOLIC PANEL Routine 06/15/2019 3:38 Re sults for this AM FUEL QUALITY TECH procedure are i n the results section. HC COMPLETE BLD COUNT Routine 06/15/2019 3:38 Re sults for this W/AUTO DIFF AM FUEL QUALITY TECH procedure are i n the results section. POC GLUCOSE Routine 06/14/2019 9:02 Results for this PM FUEL QUALITY TECH procedure are i n the results section. CT HEAD WO CONTRAST STAT 06/14/2019 8:31 Resu lts for this PM FUEL QUALITY TECH procedure are i n the results section. POC GLUCOSE Routine 06/14/2019 4:31 Results for this PM FUEL QUALITY TECH procedure are i n the results section. POC GLUCOSE Routine 06/14/2019 3:36 Results for this PM FUEL QUALITY TECH procedure are i n the results section. POC GLUCOSE Routine 06/14/2019 12:06 Results for this PM FUEL QUALITY TECH procedure are i n the results section. POC GLUCOSE Routine 06/14/2019 8:38 Results for this AM FUEL QUALITY TECH procedure are i n the results section. GASTROINTESTINAL PANEL Routine 06/14/2019 5:48 R esults for this AM FUEL QUALITY TECH procedure are i n the results section. T4, FREE Routine 06/14/2019 5:14 Results for this AM FUEL QUALITY TECH procedure are i n the results section. THYROID STIMULATING Routine 06/14/2019 5:14 Resu lts for this HORMONE AM FUEL QUALITY TECH procedure are i n the results section. LIPID PANEL Routine 06/14/2019 5:14 Results for this AM FUEL QUALITY TECH procedure are i n the results section. HEMOGLOBIN A1C Routine 06/14/2019 5:14 Results f or this AM FUEL QUALITY TECH procedure are i n the results section. MANUAL DIFFERENTIAL Routine 06/14/2019 4:59 Resu lts for this AM FUEL QUALITY TECH procedure are i n the results section. ESTIMATED GFR Routine 06/14/2019 4:59 Results fo r this AM FUEL QUALITY TECH procedure are i n the results section. BASIC METABOLIC PANEL Routine 06/14/2019 4:59 Re sults for this AM FUEL QUALITY TECH procedure are i n the results section. CBC WITH PLATELET AND Routine 06/14/2019 4:59 Re sults for this DIFFERENTIAL AM FUEL QUALITY TECH procedure are i n the results section. POC GLUCOSE Routine 06/13/2019 9:19 Results for this PM FUEL QUALITY TECH procedure are i n the results section. POC GLUCOSE Routine 06/13/2019 4:35 Results for this PM FUEL QUALITY TECH procedure are i n the results section. POC GLUCOSE Routine 06/13/2019 11:50 Results for this AM FUEL QUALITY TECH procedure are i n the results section. POC GLUCOSE Routine 06/13/2019 8:04 Results for this AM FUEL QUALITY TECH procedure are i n the results section. POC GLUCOSE Routine 06/13/2019 8:02 Results for this AM FUEL QUALITY TECH procedure are i n the results section. HC COMPLETE BLD COUNT Routine 06/13/2019 5:30 Re sults for this W/AUTO DIFF AM FUEL QUALITY TECH procedure are i n the results section. ESTIMATED GFR Routine 06/13/2019 4:00 Results fo r this AM FUEL QUALITY TECH procedure are i n the results section. BASIC METABOLIC PANEL Routine 06/13/2019 4:00 Re sults for this AM FUEL QUALITY TECH procedure are i n the results section. TROPONIN Timed 06/13/2019 1:36 Results for this AM FUEL QUALITY TECH procedure are i n the results section. TROPONIN Timed 06/12/2019 10:55 Results for this PM FUEL QUALITY TECH procedure are i n the results section. GASTROINTESTINAL PANEL Routine 06/12/2019 10:05 R esults for this PM FUEL QUALITY TECH procedure are i n the results section. INFLUENZA ANTIGEN Routine 06/12/2019 9:15 Result s for this PM FUEL QUALITY TECH procedure are i n the results section. XR CHEST 1 VW PORTABLE STAT 06/12/2019 8:55 R esults for this PM FUEL QUALITY TECH procedure are i n the results section. ECG ED PRELIMINARY Routine 06/12/2019 7:50 Resul ts for this INTERPRETATION PM FUEL QUALITY TECH procedure are in the results section. URINALYSIS SCREEN AND STAT 06/12/2019 7:49 Re sults for this MICROSCOPY, WITH REFLEX PM FUEL QUALITY TECH proc edure are in TO CULTURE the results section. ESTIMATED GFR STAT 06/12/2019 7:49 Results fo r this PM FUEL QUALITY TECH procedure are i n the results section. PROTHROMBIN TIME WITH STAT 06/12/2019 7:49 Re sults for this INR PM FUEL QUALITY TECH procedure are i n the results section. PARTIAL THROMBOPLASTIN STAT 06/12/2019 7:49 R esults for this TIME (PTT) PM FUEL QUALITY TECH procedure are i n the results section. B NATRIURETIC PEPTIDE STAT 06/12/2019 7:49 Re sults for this PM FUEL QUALITY TECH procedure are i n the results section. TROPONIN STAT 06/12/2019 7:49 Results for this PM FUEL QUALITY TECH procedure are i n the results section. COMPREHENSIVE METABOLIC STAT 06/12/2019 7:49 Results for this PANEL PM FUEL QUALITY TECH procedure are i n the results section. HC COMPLETE BLD COUNT STAT 06/12/2019 7:49 Re sults for this W/AUTO DIFF PM FUEL QUALITY TECH procedure are i n the results section. URINE CULTURE STAT 06/12/2019 7:49 Results fo r this PM FUEL QUALITY TECH procedure are i n the results section. ECG 12-LEAD STAT 06/12/2019 7:42 Results for this PM FUEL QUALITY TECH procedure are i n the results section. after 03/24/[address] Chest Wo Contrast (12/28/2019 9:29 [...] repr esent some subcutaneous bruising for cellulitis. [facility]-[id number] Procedure Note Hm Interface, Radiology Results Incoming [...] may represent some subcutaneous bruising for cellulitis. [id number] Performing Organization Address City/State/ZIP Code Phon e Number [facility] [address] [place] [address] CT Head Wo Contrast (12/28/2019 9:28 PM CDT)Only the most recent of2 results within the time period is included. Specimen Narrative Performed At EXAM: [facility] CL[facility]ICAL [facility]: headache TECHNIQUE: Noncontrast enhanced images of the brain we re obtained from the skull base to the vertex. Both soft tissue and bon e reconstruction algorithms were performed. CT scans are performed using radiation dose reduction techniques (iterative reconstruction and/or automated exposure co ntrol). Technical factors are evaluated and adjusted to ensure appropria te moderation of exposure. Automated dose clinical data management director nology is applied to adjust radiation exposure while achievi ng a diagnostic quality image. COMPARISON: 06/14/2019. FINDINGS: The wagner-white matter differentiation is preserved and without evidence of acute territorial infarction. 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 Minimal scattered subcortical and [...] ensure appropriate moderation of exposure. Automated dose clinical data management director nology is applied to adjust radiation exposure while achieving a diagnostic quality image. COMPARISON: 06/14/2019. FINDINGS: The wagner-white matter differentiation is preserved and without evidence of acute territorial infarction. 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 Minimal scattered subcortical and [...] acute intracranial abnormality. [id number] Performing Organization Address [facility] Phon e Number [facility] [address] [place] [address] XR Chest 1 Vw Portable (12/28/2019 8:55 [...] is norm al. No acute osseous abnormalities. [facility]-[id number] Procedure Note Interface, Radiology Results Incoming - 12/28/2019 8:59 PM CDT EXAMINATION: XR CHEST 1 VW PORTABLE CLINICAL HISTORY: sob COMPARISON: 06/12/2019. IMPRESSION: Right central venous catheter terminates over the right atrium. Low lung volumes. Vascular crowding and/ or congestion. No focal consolidation. No pleural effusion or pneumothorax. The cardiomediastinal silhouette is norm al. No acute osseous abnormalities. [facility]-[id number] Performing Organization Address [facility] Phon e Number [facility] [address] [place] [address] ECG ED Preliminary Interpretation - Not an Order (12/28/2019 8:54 PM CDT)Only the most recent of2 resultswithin the time period is included. Narrative Performed At Kelvin Palomino MD 12/30/2019 2:41 AM ECG ED Preliminary Interpretation - Not an Order Performed by: Kelvin Palomino MD Authorized by: Kelvin Palomino MD ECG reviewed by ED Physician in the abse nce of a convolute tube winder: yes Interpretation: Interpretation: abnormal Rate: ECG rate: 81 ECG rate assessment: normal Rhythm: Rhythm: sinus rhythm Conduction: Conduction: abnormal Abnormal conduction: complete RBBB Estimated GFR (12/28/2019 7:16 PM CDT)Only the most recent of37 resultswithin the time period is included. Estimated GFR 17 (A) mL/min/1.73 [facility] Comment: HOSPITAL Catergory Units Interpretation [...] published in 2014. Specimen Performing Organization Address City/State/ZIP Code Phon e Number [facility] DEPARTMENT OF PATHOLOGY AND [address] [place], [place] [address] GEN[address] [address] Troponin (12/28/2019 7:16 PM CDT)Only the most recent of5 resultswithin the time period is included. Troponin 0.016 0.000 - 0.040 [facility] Comment: ng/mL HOSPITAL In patients suspected of [...] 0.020 ng/mL Specimen Blood Performing Organization Address City/State/ZIP Code Phon e Number [facility] DEPARTMENT OF PATHOLOGY AND [address] [place], [place] [address] [facility] [address] [place] [address] CBC with platelet and differential (12/28/2019 7:16 PM CDT)Only the most recent of16 resultswithin the time period is included. WBC 5.65 4.50 - 11.00 [facility] k/uL [facility] RBC 3.75 (L) 4.40 - 6.00 [facility] m/uL [facility] HGB 12.7 (L) 14.0 - 18.0 [facility] gdL [facility] HCT 36.6 (L) 41.0 - 51.0 % [facility] MCV 97.6 82.0 - 100.0 [facility] MCH 33.9 27.0 - 34.[address] [facility] MCHC 34.7 31.0 - 37.0 [facility] g/dL [facility] RDW - SD 50.0 37.0 - 55.[address] [facility] MPV 12.9 8.8 - 13.[address] [facility] Platelet count 152 150 - 400 k/uL [facility] Nucleated RBC 0.00 /[address] [facility] Neutrophils 65.7 39.0 - 69.0 % [facility] Lymphocytes 24.6 (L) 25.0 - 45.0 % [facility] Monocytes 5.3 0.0 - 10.0 % [facility] Eosinophils 3.0 0.0 - 5.0 % [facility] Basophils 0.7 0.0 - 1.0 % [facility] Immature granulocytes 0.7Comment: 0.0 - 1.0 % [facility] "Immature HOSPITAL granulocytes" (promyelocytes , myelocytes, metamyelocytes ) Specimen Blood Performing Organization Address City/[facility] Phon e Number [facility] DEPARTMENT OF PATHOLOGY AND [address] [place], [place] [address] [facility] [address] [place] [address] B natriuretic peptide (12/28/2019 7:16 PM CDT)Only the most recent of2 results within the time period is included. Pathologist Sig nature BNP 318 (H) 0 - 100 pg/mL [facility] Specimen Blood Performing Organization Address City/[facility] Phon e Number [facility] DEPARTMENT OF PATHOLOGY AND [address] [place], [place] [address] [facility] [address] [place] [address] Comprehensive metabolic panel (12/28/2019 7:16 PM CDT)Only the most recent of2 resultswithin the time period is included. Sodium 139 135 - 148 [facility] mEq/L [facility] Potassium 5.3 (H) 3.5 - 5.0 [facility] mEq/L [facility] Chloride 97 (L) 98 - 112 [facility] mEq/L [facility] CO2 27 24 - 31 mEq/L [facility] Anion gap 15@ANIO 7 - 15 mEq/L [facility] BUN 27 (H) 6 - 20 mg/dL [facility] Creatinine 3.84 (H) 0.70 - 1.20 [facility] mg/dL [facility] Glucose 252 (H) 65 - 99 mg/dL [facility] Calcium 8.8 8.3 - 10.2 [facility] mg/dL HOSPITAL Protein 6.9 6.3 - 8.3 [facility] Comment: g/dL HOSPITAL - 4.6-7.0 g/dL 1 week 4.4-7.6 g/dL 7 months-1year 5.1-7.3 g/dL 1-2 years 5.6-7.5 g/dL >3 years 6.0-8.0 g/dL 18-150 6.3-8.3 g/dL Albumin 2.7 (L) 3.5 - 5.0 [facility] g/dL [facility] A/G ratio 0.6 (L) 0.7 - 3.8 [facility] Alkaline phosphatase 175 (H) 40 - 129 U/L [facility] AST 35 10 - 50 U/L [facility] ALT 29 5 - 50 U/L [facility] Total bilirubin 0.3 0.0 - 1.2 [facility] mg/dL HOSPITAL Specimen Blood Performing Organization Address City/[facility]/ZIP [facility] Phon e Number [facility] DEPARTMENT OF PATHOLOGY AND [address] [place] [address] [phone] [address] ECG 12 lead (12/28/2019 6:32 PM CDT)Only the most recent of5 resultswithin the time period is included. Pathologist Sig nature Ventricular rate 81 [facility]USE Atrial rate 81 [facility] UT interval 134 [facility] M[facility] QRSD interval 136 [...] is no t available. Performing Organization Address [facility] Phon e Number [facility] MUSE [address] [place] [id number] POC glucose (07/16/2019 12:29 PM CDT)Only the most recent of156 resultswithin the time period is included. Pathologist [facility] POC glucose 253 (H) 65 - 99 mg/dL [facility] Comment: HOSPITAL Vascular Surgery Physician Name: Ney Lao Device ID: [id number] Chartable: [facility] Notified RN Specimen Blood Performing Organization Address City/[facility]/ZIP Code Phon e Number [facility] DEPARTMENT OF PATHOLOGY AND [address] [place] [address] [phone] [address] Phosphorus level (07/16/2019 4:00 AM CDT)Only the most recent of31 results within the time period is included. Pathologist Sig nature Phosphorus 4.3 2.4 - 4.5 mg/dL [facility] L Specimen Blood Performing Organization Address City/[facility] Phon e Number [facility] DEPARTMENT OF PATHOLOGY AND [address] [place] [address] [phone] [address] Basic metabolic panel (07/16/2019 4:00 AM CDT)Only the most recent of35 results within the time period is included. Pathologist Sig nature Sodium 142 135 - 148 mEq/L [facility] Potassium 4.3 3.5 - 5.0 mEq/L [facility] Chloride 105 98 - 112 mEq/L [facility] CO2 27 24 - 31 mEq/L [facility] Anion gap 10@ANIO 7 - 15 mEq/L [facility] BUN 46 (H) 6 - 20 mg/dL [facility] Creatinine 4.61 (H) 0.70 - 1.20 mg/dL [facility] Glucose 189 (H) 65 - 99 mg/dL [facility] Calcium 8.7 8.3 - 10.2 mg/dL [facility] Specimen Blood Performing Organization Address [facility] Phon e Number [facility] DEPARTMENT OF PATHOLOGY AND [address] [place] [address] [phone] [address] Magnesium level (07/14/2019 5:10 AM CDT)Only the most recent of29 resultswithin the time period is included. Pathologist Sig nature Magnesium 1.9 1.6 - 2.6 mg/dL [facility] Specimen Blood Performing Organization Address City/[facility] Phon e Number [facility] DEPARTMENT OF PATHOLOGY AND [address] [place] [address] [phone] [address] Total iron binding capacity (07/10/2019 1:40 PM CDT) Pathologist Sig nature Iron level 72 59 - 158 ug/dL [facility] Iron binding capacity 298 200 - 400 ug/dL [facility] % Saturation 24.2 20.0 - 40.0 % [facility] Specimen Blood Performing Organization Address City/[facility] Phon e Number [facility] DEPARTMENT OF PATHOLOGY AND [address] [place], [place] [address] [facility] [address] [place] [address] Ferritin level (07/10/2019 1:40 PM CDT) Pathologist Sig nature Ferritin level 214 30 - 400 ng/mL [facility] Specimen Blood Performing Organization Address City/[facility] Phon e Number [facility] DEPARTMENT OF PATHOLOGY AND [address] [place], [place] [address] [facility] [address] [place] [address] [place] Modified Barium Swallow (07/09/2019 1:51 PM CDT) Specimen Narrative Performed At EXAMINATION: [place] MODIFIED BARIUM SWALLO W HM [facility] CLINICAL HISTORY: aspiration dysphagia unspecified COMPARISON: [...] to Speech Pathology report for further details. [facility]-[id number] Dictated and approved by residential framing carpenter/fellow: Marin Escamilla M.D. I, Adriana Morales MD, personally reviewed the images and resident's/fellow's findings and agree with the final report. Procedure Note [facility], Radiology Results Incoming - 07/09/2019 [...] to Speech Pathology report for further details. [facility]-[id number] Dictated and approved by radiology resid ent/fellow: Eugenia Escamilla M.D. I, Adriana Morales MD, personally review ed the images and resident's/fellow's findings and agree with the final report. Performing Organization Address City/State/ZIP Code Phon e Number [facility] [address] [place] [address] Hepatic function panel (07/08/2019 4:00 AM CDT)Only the most recent of15 resultswithin the time period is included. Albumin 2.4 (L) 3.5 - 5.0 [facility] g/dL [facility] Total bilirubin <0.2 0.0 - 1.2 [facility] mg/dL [facility] Bilirubin direct <0.2 0.0 - 0.3 [facility] mg/dL HOSPITAL Alkaline phosphatase 133 (H) 40 - 129 U/L [facility] Protein 6.9 6.3 - 8.3 [facility] Comment: g/dL HOSPITAL - 4.6-7.0 g/dL 1 week 4.4-7.6 g/dL 7 months-1year 5.1-7.3 g/dL 1-2 years 5.6-7.5 g/dL >3 years 6.0-8.0 g/dL 18-150 6.3-8.3 g/dL ALT 20 5 - 50 U/L [facility] AST 20 10 - 50 U/L [facility] Specimen Plasma specimen Performing Organization Address City/State/ZIP Code Phon e Number [facility] DEPARTMENT OF PATHOLOGY AND [address] [place], [place] [address] GEN[facility] [address] Hypersensitivity pneumonitis II (07/07/2019 5:30 PM CDT) Pathologist [facility] Aspergillus flavus None Detected None-Detec [facility] REF Comment: tin LAB Testing includes antibodies directed at Aspergillus fl avus, Aspergillus fumigatus #2, Aspergillus fumigatus #3, Saccharomonospora viridis, and Thermoactinomyces dory dus. Aspergillus fumigatus None Detected None-Detec [facility] #2 tin LAB Aspergillus fumigatus None Detected None-Detec [facility] REF #3 tin LAB Saccharomonospora None Detected None-Detec [facility] REF viridis tin LAB Thermoactinomyces None Detected None-Detec [facility] REF candidus Comment: tin LAB Performed by [facility] [employer], [address] [place] [id number] [email or web address], Roberto Almaguer MD, Lab. Director Thermoactinomyces NOT PERFORMED WITH [facility] RE[facility] saccharii THIS PANEL LAB Specimen Serum Performing Organization Address [facility] Phon e Number [facility] [address] [place] [address] [facility] [address] [place] [address] Hypersensitivity pneumonitis I (07/07/2019 5:30 PM CDT) Aspergillus fumigatus None Detected None-Detec [facility] #1 tin LAB Aspergillus fumigatus None Detected None-Detec [facility] #6 tin LAB Aureobasidium pullulans None Detected None-Detec [facility] Comment: tin LAB Testing includes antibodies directed at Aureobasidium pullulans, Aspergillus fumigatus #1, Aspergillus fumigatus #6, Mi cropolyspora faeni, Grassflat Serum and Thermoactinomyces vulgaris #1. Grassflat serum None Detected None-Detec [facility] tin LAB Micropolyspora faeni None Detected None-Detec [facility] tin LAB Thermoactinomyces None Detected None-Detec [facility] vulgaris #1 Comment: tin LAB Performed by [facility] [employer], [address] [place], [place] [id number] [email or web address], Roberto Almaguer MD, Lab. Director Specimen Serum Performing Organization Address [facility] Phon e Number [facility] [address] [place] [address] [facility] [address] [place] [phone] Immunoglobulin G (07/07/2019 4:11 PM CDT) Pathologist Sig nature IgG 1,005 700 - 1,600 mg/dL [facility] Specimen Plasma specimen Performing Organization Address City/[facility] Code Phon e Number [facility] DEPARTMENT OF PATHOLOGY AND [address] [place] [phone] [address] SS-B antibody (07/07/2019 2:30 PM CDT) Sjogren's SS-B <0.2 0.0 - 0.9 AI [facility] antibody [facility] SS-B antibody Negative [facility] inter Comment: SPIRITISM SS-B/La antibody is seen in patients with Sjogre n syndrome, but may also be HOSPITAL positive with systemic lupus erythematosus (SLE), and systemic sclerosis. Specimen Serum Performing Organization Address City/State/ZIP Code Phon e Number [facility] DEPARTMENT OF PATHOLOGY AND [address] [place] [address] [address] SS-A antibody (07/07/2019 2:30 PM CDT) Sjogren's SS-A <0.2 0.0 - 0.9 [facility] antibody [facility] SS-A antibody Negative [facility] interp Comment: SPIRITISM SS-A antibody is sensitive for Sjogren's syndrom e, but may also be positive HOSPITAL with systemic lupus erythematosus (SLE), and systemic sclerosis. Specimen Serum Performing Organization Address City/State/ZIP Code Phon e Number [facility] DEPARTMENT OF PATHOLOGY AND [address] [place] [address] Scl-70 antibody (07/07/2019 2:30 PM CDT) Scleroderma SCL-70 <0.2 0.0 - 0.9 [facility] Ab [facility] Scl-70 antibody Negative [facility] interp Comment: SPIRITISM Anti-Scl-70 (topoisomerase I) antibodies are found in patients with HOSPITAL systemic sclerosis (SSc or scleroderma), and have been reported to be predictive of diffuse cutaneous involvement. Anti-Scl- 70 antibodies may also be present in patients with systemic lupus erythe matosus (SLE). Specimen Serum Performing Organization Address City/[facility]/ZIP Code Phon e Number [facility] DEPARTMENT OF PATHOLOGY AND [address] [place] [address] Centromere antibody (07/07/2019 2:30 PM CDT) Centromere <0.2 0.0 - 0.9 [facility] Centromere Negative [facility] antibody interp Comment: HOSPITAL Anti-centromere antibodies are found in patients with systemic sclerosis (SSc or scleroderma), especially for those with limite d cutaneous or CREST syndrome. Anti-centromere antibodies may also be found in patients with other rheumatic or connective tissue diseases. Specimen Serum Performing Organization Address City/State/ZIP Code Phon e Number [facility] DEPARTMENT OF PATHOLOGY AND [address] [place], [place] [address] [facility] [address] [place] [address] DNA Ab screen (07/07/2019 2:30 PM CDT) Pathologist Sig nature DNA Ab screen Not Detected Not-Detected [facility] Specimen Blood Performing Organization Address City/State/ZIP Code Phon e Number [facility] DEPARTMENT OF PATHOLOGY AND [address] [place] [phone] [facility] [address] [place] [address] Anti-neutrophilic cytoplasmic Abs panel (07/07/2019 2:30 PM CDT) Pathologist Sig nature ANCA screen Negative Negative [facility] Specimen Blood Performing Organization Address City/[facility] Code Phon e Number [facility] DEPARTMENT OF PATHOLOGY AND [address] [place] [address] 0 [facility] [address] [place] [address] Cardiac Overread (07/06/2019 6:20 PM CDT) [...] the chest is recommended Performing Organization Address City/State/ZIP Code Phon e Number [facility] [address] [place] [address] Cv cta coronary arteries w contrast and ffr if needed (07/06/2019 1:32 PM CDT) Specimen Narrative Performed At This result has an attachment that is no t available. [facility] Nuclear Cardiology and Card iac CT [address] [address] CTA Coronary Arteries R eport Pat.Name: PAOLA KWONG Pat.ID: [id number] .Date: 07/06/2019 Refer.MD: MILTON ELLINGTON MD Exam Time: 1:09:00 PM Study Type:C TA Coronary Arteries Height: 67in Weight: 212lb BSA: 2.07 m2 Age: 6 1965,53Y Sex: MALE BP: 151/83 HR: 54 bpm Nuclear Tech:Samina Beyer, RT(R)(CT) Pat. Stat.:Inpatient Tape Vol: 33.2, CPT - 4: CCTA w Thoracic Aorta (NonCongenital) [id number] Nuclear Event ID:[id number] Order ID: [id number] Reason for Study:Pre-Op CABG, CAD History / Clinical:Coronary artery disease, Diabetes, Hyperlipidemia, Hypertension, S/P PCI 07/2007, Liver cirrhosis/Hepatiti s C Procedures: CT Prospective (phases) Race: C SUMMARY: Technique: IV contrast was administered and sequential 0.[address] cuts were obtained through the chest using the Siemens Scality moy Force CT scanner. Image post-processing consisting of multiplan ar and 3D reconstructions were performed using the [employer] workstation. Interactive image viewing, volumetric dis play [...] refer to the separate radiology report in [facility] for any additional non-cardiovascular findings. STUDY QUALITY The study quality is good. COMMENTS None. FINDINGS: Signed 07/06/2019 05:59 PM Sreedhar Walton MD Procedure Note Interface, Radiology Results In - 2019 5:59 PM CDT Nuclear Cardiology and Cardiac CT [address] [place] [address] CTA Coronary Arteri es Report Pat.Name: PAOLA KWONG Pat.I D: [id number] St.Date: 07/06/2019 Refer.MD: MILTON ELLINGTON MD Exam Time: 1:09:00 PM Study Type:CTA Coronary Arteries Height: 67in Weigh t: 212lb BSA: 2.07 m2 Age: 6 1965,53Y Sex: MALE BP: 151/83 HR: 54 bpm Nuclear Tech:Samina Beyer RT(R)(CT) Pat. Stat.:Inpatient Tape Vol: 33.2, CPT - 4: CCTA w Thoracic Aorta (NonCo ngenital) [id number] Nuclear Event ID:[id number] Order ID: [id number] Reason for Study:Pre-Op CABG, CAD History / [...] and 3D reconstructions were performed using the [employer] workstation. Interactive image viewing, volumetric display and [...] to the separate radiology r eport in [facility] for any additional non-cardiovascular findings. STUDY QUALITY The study quality is good. COMMENTS None. FINDINGS: Signed 07/06/2019 05:59 PM Sreedhar Walton MD Performing Organization Address [facility] [address] [place] [address] HIV Ag/Ab combination (07/06/2019 5:20 AM CDT) HIV Ag/Ab combination Non-reactive Non-reactive [facility] Specimen Blood Performing Organization Address [facility] Phon e Number [facility] DEPARTMENT OF PATHOLOGY AND [address] [place] [address] [phone] [address] Prothrombin time with INR (07/06/2019 5:20 AM CDT)Only the most recent of3 resultswithin the time period is included. Prothrombin time 14.5 11.5 - 14.5 [facility] INR 1.1 LYNN Comment: [facility] International Normalized Ratio (INR) is a [facility]OSPITAL monitoring tool for patients who are stable on oral anticoagulant therapy. An INR of 2.0-3.0 is suggested for deep vein thrombosis/pulmonary embolism. Specimen Blood Performing Organization Address [facility] Phon e Number [facility] DEPARTMENT OF PATHOLOGY AND [address] [place] [address] [phone] [address] Rheumatoid factor (07/06/2019 5:20 AM CDT) Pathologist Sig nature Rheumatoid factor <10 0 - 13 IU/mL [facility] Specimen Plasma specimen Performing Organization Address [facility] Phon e Number [facility] DEPARTMENT OF PATHOLOGY AND [address] [place] [address] 0 [facility] [address] [place] [address] C3 complement component (07/06/2019 5:20 AM CDT) Pathologist Sig nature C3 complement 133 90 - 180 mg/dL [facility] Specimen Plasma specimen Performing Organization Address City/[facility] Phon e Number [facility] DEPARTMENT OF PATHOLOGY AND [address] [place] [address] 0 [place] [address] C4 complement component (07/06/2019 5:20 AM CDT) Pathologist Sig nature C4 complement 34 10 - 40 mg/dL [facility] Specimen Plasma specimen Performing Organization Address [facility] Phon e Number [facility] DEPARTMENT OF PATHOLOGY AND [address] [place] [address] 0 [place] [address] Transthoracic Echocardiogram Complete, (w Contrast, Strain and 3D if needed) (07/05/2019 9:25 AM CDT) Specimen Narrative Performed At [facility] Echo cardiography Report [address] [place] [address] Pat.Name: PAOLA KWONG Pat.ID: [id number] .Date: 07/05/2019 Refer.MD: MILTON ELLINGTON MD Exam Time: 7:54:00 AM Study Type:R outine Echo Height: 67in Weight: 212lb BSA: 2.07 m2 Ag e: 1965,53Y Sex: MALE BP: 157/71 Sonogrphr: Audrey Bella RDCS, RVSPat. Stat.:Inpatien t Room: Health System Study S tatus:Final Echo Event ID:[id number] Order ID: [id number] Reason for Study:Chest pain, suspected c ardiac etiology History / Clinical:Chest Pain, Diabetes, Hyperlipidemia, Hypertension, Cirrhosis, [place], Infectious Viral Hepatiti s Procedures: 2D Echo, [...] PA systolic pressure. MEASUREMENTS: 2D Parasternal Long [place] Ao An 2 cm LVPWd 1.5 cm [...] 2019 10:49 AM CDT Echocardiography Report [address] [place] [address] Pat.Name: PAOLA KWONG Pat.I D: [id number] .Date: 07/05/2019 Refer.MD: MITLON ELLINGTON MD Exam Time: 7:54:00 AM Study Type:Routine Echo Height: 67in Weigh t: 212lb BSA: 2.07 m2 Age: 6 1965,53Y Sex: MALE BP: 157/71 Sonogrphr: Audrey Bella RDCS, RVSPat. Stat.:Inpatient Room: Health System Study Status:Final Echo Event ID:[id number] Order ID: [id number] Reason for Study:Chest pain, suspected c ardiac etiology History / Clinical:Chest Pain, Diabetes, Hyperlipidemia, Hypertension, Cirrhosis, [place], Infectious Viral Hepatiti s Procedures: 2D Echo, [...] PA systolic pressure. MEASUREMENTS: 2D Parasternal Long [place] Ao An 2 cm LVPW d 1.5 [...] Jo Ann Kraus MD Performing Organization Address City/State/ZIP Code Phon e Number [facility] [address] [place] [address] Vancomycin level, random (07/05/2019 5:14 AM CDT)Only the most recent of8 resultswithin the time period is included. Pathologist Sig nature Vancomycin, random 11.9 ug/mL [facility] ITAL Specimen Serum Performing Organization Address [facility]/ZIP Code Phon e Number [facility] DEPARTMENT OF PATHOLOGY AND [address] [place], [place] [address] [facility] [address] [place] [address] VENIPUNC NEED PHYS SKILL,DX OR RX (07/02/2019 2:59 PM FUEL QUALITY TECH) Narrative Performed At Estela Padilla RN 07/02/2019 3:03 PM Midline Date/Time: 07/02/2019 2:59 PM Performed by: Kaykay Rain Authorized by: Milton Ellington Sr., MD Consent: Consent obtained: Verbal Consent given by: Patient Risks discussed: arterial puncture, incorrect place ment, nerve damage, infection, bleeding, superficial thrombu s and deep vein thrombus Alternatives discussed: No treatment, delayed cathy atment and alternative treatment [place] protocol: Procedure explained and questions ans wered [...] 4.5. 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 IV therapy Location: Right basilic Device Type: Non-valved Catheter size: 4 Fr Catheter to vein ratio: 31% Line Characteristics: Catheter Brand: BioFlo Midline External Catheter Length (cm): 0 Internal Catheter Length (cm): 10 Total Catheter Length (cm): 10 Catheter Lot Number: [id number] Catheter Expiration Date: 12/26/2020 Procedure Details: Landmarks [...] complications Vancomycin level, trough (07/01/2019 2:30 PM FUEL QUALITY TECH) Vancomycin, 23.0 (HH) 10.0 - 20.0 [facility] trough Comment: ug/mL [facility] Therapeutic Ranges: Peak 30.0 - 40.0 ug/mL Trough 10.0 - 20.0 ug/mL Specimen Serum Performing Organization Address City/[facility] Phon e Number [facility] DEPARTMENT OF PATHOLOGY AND [address] [place] [phone] [address] Surgical pathology request (06/30/2019 11:36 AM FUEL QUALITY TECH) [facility] DEPARTMENT OF PATHOLOGY AND GENOMIC MEDICINE Surgical pathology See link below [facility] DEPARTMENT OF report for PDF Lab PATHOLOGY AND Report GENOMIC MEDICINE Result status This is Final [facility] DEPARTMENT OF Report for PATHOLOGY AND [id number] GENOMIC MEDICINE Specimen Performing Organization Address City/[facility] Phon e Number [facility] DEPARTMENT OF PATHOLOGY AND [address] [place] [phone] GENOMIC MEDICINE IR Transjugular Liver Biopsy (06/30/2019 9:39 AM FUEL QUALITY TECH) Specimen Narrative Performed At Performing Radiologist CONI Lauren MD Assistants None Anesthesia Type Moderate sedation was administered by the procedure nu rse and monitored by the procedure physician for a xsix-xa-lvnn sedation time of 20 minutes. Lidocaine 1% [...] atrial pressure measures were then obtained. A 5-Mozambican multipurpose catheter was advanced over the g uidewire and used to select the right hepatic vein. A CO2 right hepatic venogram was performed. Pressure measure ments were also obtained in both the free and wedge positions. The 9-F rench vascular sheath was then advanced into the right hepatic vein. The transjugular liver biopsy system was advanced through the 9-Mozambican vascular sheath, and multiple 18-gauge core liver biopsy specimens were obtained and submitted to pathology. Th e transjugular liver biopsy system and 9-Mozambican vascular sheath were then removed from the [...] hepatic: 11 mmHg Wedge hepatic: 15 mmHg [facility]-[id number] Procedure Note Interface, Radiology Results Incoming - 06/30/2019 4:50 PM FUEL QUALITY TECH Performing Radiologist Vamshi Lauren MD Assistants None Anesthesia Type Moderate sedation was administered by th e procedure nurse and monitored by the procedure physician for a zxmw-ey-ppmb sedation time of 20 minutes. Lidocaine 1% [...] into the inferior vena cava. A long 9-Mozambican vascular sheath was then placed,and adva nced over the guidewire into the right atrium. Right atrial pressure measures were then obtained. A 5-Mozambican multipurpose catheter was advanced over the guidewire and used to select the right hepatic vein. A CO2 right hepatic venogram was performed. Pr essure measurements were also obtained in both the free and wedge positions. The 9-Mozambican vascular sheath was then advanced into the right hepatic vein. The transjugular liver biopsy system was advanced through the 9-Mozambican vascular sheath, and multiple 18-gauge core liver biopsy specimens were obtained and submitted to pathology. The transjugular liver biopsy system and 9-Mozambican vascular sheath were then removed from the [...] hepatic: 11 mmHg Wedge hepatic: 15 mmHg [facility]-[id number] Performing Organization Address City/State/ZIP Code Phon e Number [facility] [address] [place] [address] IR Tunneled Dialysis Catheter Placement (06/23/2019 10:03 AM FUEL QUALITY TECH) Specimen Narrative Performed At PERFORMING RADIOLOGIST: CONI Petersen MD ASSISTANTS: None. ANESTHESIA TYPE: Moderate sedation was administered by the procedure nu rse and monitored by the procedure physician for a total tzvj-xf-toyo se dation time of 8 minutes. Lidocaine [...] PLAN: -Catheter is ready for immediate use. [facility]-[id number] Procedure Note Interface, Radiology Results Incoming - 06/24/2019 7:31 AM FUEL QUALITY TECH PERFORMING RADIOLOGIST: Will Petersen MD ASSISTANTS: None. ANESTHESIA TYPE: Moderate sedation was administered by [facility] procedure nurse and monitored by the procedure physician for a total bhtu-im-mfix sedation time of 8 minutes. Lidocaine 1% [...] PLAN: -Catheter is ready for immediate use. [id number] Performing Organization Address City/State/ZIP Code Phon e Number [facility] [address] [place] [address] XR Abdomen 1 Vw Portable (06/21/2019 4:08 PM FUEL QUALITY TECH) Specimen Narrative Performed At EXAMINATION: XR ABDOMEN [...] are unremarkable. The lung bases are clear. [facility]-[id number] Procedure Note Interface, Radiology Results Incoming - 06/21/2019 6:05 PM FUEL QUALITY TECH EXAMINATION: XR ABDOMEN 1 VW PORTABLE CLINICAL [...] are unremarkable. The lung bases are clear. [id number] Performing Organization Address City/State/ZIP Code Phon e Number [facility] [address] [place] [address] Aerobic culture (06/20/2019 5:32 PM FUEL QUALITY TECH) Aerobic culture Klebsiella pneumoniae GONZALEZ BRAUNIS T isolate [facility] The performance characteristics of this assay on this isolate were validated by the Microbiology Laboratory at [facility]. This source has not been [...] were validated by the Microbiology Laboratory at [facility]. This source has not been [...] were validated by the Microbiology Laboratory at [facility]. This source has not been approved by the U.S. Food and Drug Administration. The results are not intended to be used as the sole means for clinical win gnosis or patient management. The Microbiology Laboratory is authorized under the clinical Laboratory Improvement Amendments of 1988 (CLIA-88) to perform high complexit y testing. Aerobic culture Klebsiella pneumoniae GONZALEZ BRAUNIS T isolate [facility] The performance characteristics of this assay on this isolate were validated by the Microbiology Laboratory at [facility]. This source has not been approve d by the U.S. Food and Drug Administration. The results are n ot intended to be used as the sole means for clinical win gnosis or patient management. The Microbiology Laboratory i s authorized under the clinical Laboratory Improvement Amendments of 1988 (CLIA-88) to perform high complexit y testing. (A) Aerobic culture Citrobacter freundii complex [facility] isolate [facility] The performance characteristics of this assay on this isolate were validated by the Microbiology Laboratory at [facility]. This source has not been [...] <=0.125 mc g/mL: Susceptible Klebsiella pneumoniae Tigecycline RCYS 2 mcg/mL: Susceptible Enterococcus faecalis Ampicillin CRYS [...] mcg/mL: S usceptible complex Performing Organization Address City/State/[facility] Phon e Number [facility] DEPARTMENT OF PATHOLOGY AND [address] [facility] [place] [address] [facility] MEDICINE [address] [address] Gram stain (06/20/2019 5:32 PM FUEL QUALITY TECH) Gram stain isolate Rare WBC's [facility] Many Gram negative rods HOSPITAL Rare Gram positive cocci in pairs Comment: Specimen Information Specimen Source: Drainage Specimen Site: Not otherwise specified Specimen Drainage - Not otherwise specified Performing Organization Address City/State/[facility] Phon e Number [facility] DEPARTMENT OF PATHOLOGY AND [address] [place] [address] [phone] [address] Protein, urine, random (06/19/2019 7:06 PM FUEL QUALITY TECH) Pathologist Sig nature Protein, urine random 584 mg/dL [facility] Specimen Urine Performing Organization Address City/[facility] Phon e Number [facility] DEPARTMENT OF PATHOLOGY AND [address] [place] [address] [phone] [address] Creatinine level, urine, random (06/19/2019 7:06 PM FUEL QUALITY TECH) Pathologist Sig nature Creatinine, urine, 99 mg/dL [facility] Specimen Urine Performing Organization Address [facility] Phon e Number [facility] DEPARTMENT OF PATHOLOGY AND [address] [place] [address] [phone] [address] Anti smooth muscle Ab screen (06/19/2019 12:00 AM FUEL QUALITY TECH) Pathologist Sig nature Anti smooth muscle Not Detected Not-Detected [facility] Ab screen HOSPITAL Specimen Blood Performing Organization Address [facility] Phon e Number [facility] DEPARTMENT OF PATHOLOGY AND [address] [place] [address] [phone] [address] Anti mitochondria screen (06/19/2019 12:00 AM FUEL QUALITY TECH) Anti mitochondria Not Detected Not-Detected [facility] HOSPITAL Specimen Blood Performing Organization Address [facility] Phon e Number [facility] DEPARTMENT OF PATHOLOGY AND [address] [place] [phone] [place] [address] Urine culture (06/18/2019 7:24 AM FUEL QUALITY TECH)Only the most recent of2 resultswithin the time period is included. Urine culture No growth after 24 hours [facility] Comment: HOSPITAL Specimen Information Specimen Source: Urine Specimen Site: Clean catch Specimen Urine Performing Organization Address [facility] Phon e Number [facility] DEPARTMENT OF PATHOLOGY AND [address] [place] [address] [phone] [address] Urinalysis screen and microscopy, with reflex to culture (06/18/2019 5:30 AM FUEL QUALITY TECH)Only the most recent of2 resultswithin the time period is included. Pathologist Sig nature Specimen site Clean catch [facility] Color, UA Yellow [facility] Appearance, UA Cloudy [facility] Specific gravity, 1.011 1.001 - 1.035 [facility] pH, UA 5.0 5.0 - 8.5 [facility] Protein, UA 3+ (A) Negative [facility] Glucose, UA 1+ (A) Negative [facility] Ketones, UA Negative Negative [facility] Bilirubin, UA Negative Negative [facility] Blood, UA Small (A) Negative [facility] Nitrite, UA Negative Negative [facility] Urobilinogen, UA <2.[address]0 [facility] Leukocyte esterase, Negative Negative [facility] WBC, UA 14 (H) 0 - 1 /HPF [facility] RBC, UA 1 0 - 5 /HPF [facility] Bacteria, UA Few None seen [facility] WBC clumps, UA Few (A) [facility] Yeast, UA None seen [facility] Yeast with None seen [facility] pseudohyphae, HOSPITAL Amorphous crystals Few [facility] Granular casts, UA 1 0 - 1 /LPF [facility] Specimen Urine Performing Organization Address City/State/ZIP Code Phon e Number [facility] DEPARTMENT OF PATHOLOGY AND [address] [place], [place] [address] GENOMIC MEDICINE [address] [address] Hepatitis B surface Ab, quantitative (06/18/2019 5:00 AM FUEL QUALITY TECH) Hepatitis B surface <3.10 IU/L [facility] Ab Comment: The anti-HBs is [...] and Tissue-Based Products (HCT/P) . Performed by [facility], [address] [place] [id number] [email or web address], Roberto Almaguer MD, Lab. Director Specimen Serum Performing Organization Address [facility] Phon e Number [facility] [address] [place] [address] [facility] [address] [place] [address] Ammonia level (06/18/2019 5:00 AM FUEL QUALITY TECH) Pathologist Sig [facility] Ammonia 63 (H) 16 - 60 umol/L [facility] Specimen Blood Performing Organization Address City/[facility] Phon e Number [facility] DEPARTMENT OF PATHOLOGY AND [address] [place] [address] [address] Hepatitis C antibody (06/18/2019 4:00 AM FUEL QUALITY TECH) Pathologist Sig [facility] Hepatitis C Ab Non-reactive Non-reactive [facility] Specimen Serum Performing Organization Address City/[facility] Phon e Number [facility] DEPARTMENT OF PATHOLOGY AND [address] [place], [place] [address] [address] [address] Alpha-1 antitrypsin level (06/18/2019 4:00 AM FUEL QUALITY TECH) Pathologist Sig [facility] Alpha-1 antitrypsin 166 90 - 200 mg/dL [facility] Specimen Plasma specimen Performing Organization Address [facility] Phon e Number [facility] DEPARTMENT OF PATHOLOGY AND [address] [place] [address] [phone] [address] Hepatitis A antibody IgM (06/18/2019 4:00 AM FUEL QUALITY TECH) Pathologist Sig nature Hepatitis A IgM Non-reactive Non-reactive [facility] Specimen Serum Performing Organization Address City/[facility] Phon e Number [facility] DEPARTMENT OF PATHOLOGY AND [address] [place] [address] [phone] [address] Ceruloplasmin level (06/18/2019 4:00 AM FUEL QUALITY TECH) Pathologist Sig nature Ceruloplasmin 22 15 - 30 mg/dL [facility] Specimen Plasma specimen Performing Organization Address City/[facility] Phon e Number [facility] DEPARTMENT OF PATHOLOGY AND [address] [place] [address] [phone] [address] Alpha fetoprotein (06/18/2019 4:00 AM FUEL QUALITY TECH) Alpha fetoprotein 1.6 0.0 - 8.3 [facility] Comment: ng/mL SPIRITISM The Lexis 8000 AFP immunoassay was used. HOSPITAL Results obtained with different assay methods or kits should not be used interchangeably and may be differen t. Specimen Serum Performing Organization Address [facility] Phon e Number [facility] DEPARTMENT OF PATHOLOGY AND [address] [place] [address] [phone] [address] Hepatitis B core antibody IgM (06/18/2019 4:00 AM FUEL QUALITY TECH) Pathologist Sig nature Hepatitis B core Non-reactive Non-reactive [facility] IgM HOSPITAL Specimen Serum Performing Organization Address City/[facility] Phon e Number [facility] DEPARTMENT OF PATHOLOGY AND [address] [place] [address] [phone] [address] Hepatitis B core antibody total (06/18/2019 4:00 AM FUEL QUALITY TECH) Pathologist Sig nature Hepatitis B core Non-reactive Non-reactive [facility] total Ab HOSPITAL Specimen Serum Performing Organization Address City/[facility] Phon e Number [facility] DEPARTMENT OF PATHOLOGY AND [address] [place] [address] [phone] [address] Hepatitis B surface antibody (06/18/2019 4:00 AM FUEL QUALITY TECH) Pathologist Sig nature Hepatitis B surface Non-reactive Non-reactive [facility] Ab HOSPITAL Specimen Serum Performing Organization Address City/[facility] Phon e Number [facility] DEPARTMENT OF PATHOLOGY AND [address] [place] [address] [phone] [address] Hepatitis B surface antigen (06/18/2019 4:00 AM FUEL QUALITY TECH) Pathologist Sig nature Hepatitis B surface Non-reactive Non-reactive [facility] HOSPITAL Specimen Serum Performing Organization Address [facility] Phon e Number [facility] DEPARTMENT OF PATHOLOGY AND [address] [place] [address] ANNE (06/18/2019 4:00 AM FUEL QUALITY TECH) ANNE screen Negative Negative [facility] Comment: HOSPITAL Test performed using [employer] [place] DAPI ANNE kit (Indirect Immunofluorescence Assay) for Anti-Nuclear Antibody on [employer] 160 Analyzer. Specimen Blood Performing Organization Address [facility] Phon e Number [facility] DEPARTMENT OF PATHOLOGY AND [address] [place] [address] GGT (06/18/2019 4:00 AM FUEL QUALITY TECH) Pathologist Sig nature GGT 80 (H) 0 - 59 U/L [facility] Specimen Plasma specimen Performing Organization Address City/[facility] Phon e Number [facility] DEPARTMENT OF PATHOLOGY AND [address] [place], [place] [phone] [address] [place] [address] US Abdomen Complete (06/17/2019 4:48 PM FUEL QUALITY TECH) Specimen Narrative Performed At EXAM: US ABDOMEN COMPLETE [facility] CLINICAL DATA: 53 years Male Cirrho sis [...] participate in the care of your patient. [id number] Procedure Note Hm Interface, Radiology Results Incoming - 06/17/2019 4:59 PM FUEL QUALITY TECH EXAM: US ABDOMEN COMPLETE CLINICAL DATA: 53 [...] participate in the care of your patient. [id number] Performing Organization Address City/State/ZIP Code Phon e Number [facility] [address] [place] [address] [place] Abdominal Doppler (06/17/2019 4:48 PM FUEL QUALITY TECH) Specimen Narrative Performed At EXAMINATION: US ABDOMINAL DOPPLER EMERY CLINICAL HISTORY: rule out portal HTN hx [...] and vein are identified and are patent. [id number] Procedure Note Interface, Radiology Results Incoming - 06/17/2019 4:55 PM FUEL QUALITY TECH EXAMINATION: US ABDOMINAL DOPPLER CLINICAL HISTORY: rule [...] and vein are identified and are patent. [id number] Performing Organization Address City/[facility]/ZIP Code Phon e Number [facility] [address] [place] [address] [place] Renal (06/17/2019 2:26 PM FUEL QUALITY TECH) Specimen Narrative Performed At EXAMINATION: US RENAL [facility] CLINICAL HISTORY: Flank pain stone d isease suspected COMPARISON: None. IMPRESSION: The right kidney measures 12 cm in jeanine gth. The left kidney measures 13.9 cm in le ngth. There is no renal mass, stone, cyst, or hydronephrosis . Echogenicity is normal. The urinary bladder is unremarkable. [id number] Procedure Note Interface, Radiology Results Incoming - 06/17/2019 2:32 PM FUEL QUALITY TECH EXAMINATION: US RENAL CLINICAL HISTORY: Flank pain stone dis ease suspected COMPARISON: None. IMPRESSION: The right kidney measures 12 cm in juan ramon th. The left kidney measures 13.9 cm in jeanine gth. There is no renal mass, stone, cyst, or hydronephrosis. Echogenicity is normal. The urinary bladder is unremarkable. [id number] Performing Organization Address City/[facility]/ZIP Code Phon e Number [facility] [address] [place] [address] Celiac disease reflexive cascade (06/17/2019 4:53 AM FUEL QUALITY TECH) IgA 449 (H) 68 - 408 mg/dL [facility] Comment: Total IgA is within or higher than established ranges. Tissue Transglutaminase, IgA to follow. REFERENCE INTERVAL: Immunoglobulin A Access complete set of age- and/or gender-specific ref erence intervals for this test in the [facility] Laboratory Test Di rectory ([employer]). Performed by [facility], [address] [place] [id number] [email or web address], Roberto Almaguer MD, Lab. Director Specimen Serum Narrative Performed At [facility] called with reae back to [address] at 06/16/2019 [facility] 08:04 by NEFTALY. Performing Organization Address City/State/ZIP Code Phon e Number [facility] [address] [place] [address] [facility] [address] [place] [address] Tissue transglutaminase Ab, IgA (06/17/2019 4:53 AM FUEL QUALITY TECH) Tissue 1 0 - 3 U/mL [facility] REF transglutaminase Ab, Comment: LAB IgA No [...] sitive predictive value for disease. Performed by [facility] [employer], [address] [place] [id number] [email or web address], Roberto Almaguer MD, Lab. Director Specimen Serum Narrative Performed At [facility] called with reae back to Yu [address] at 06/16/2019 [facility] 08:04 by NEFTALY. Performing Organization Address City/State/ZIP Code Phon e Number [facility] [address] [place] [address] HM [facility] [address] [place] [address] Fecal calprotectin (06/15/2019 4:30 PM FUEL QUALITY TECH) Pathologist Sig nature Fecal calprotectin 57.64 <15.6-120mg/kg [facility] Specimen Blood Performing Organization Address City/[facility]/ZIP Code Phon e Number [facility] DEPARTMENT OF PATHOLOGY AND [address] [place] [address] [phone] [facility] [address] [place] [address] Spirometry, diffusion, lung volumes (06/15/2019 2:29 PM FUEL QUALITY TECH) Pathologist Sig nature FEV1 Pre 2.23 2.81 [...] is no t available. Performing Organization Address City/State/ZIP Code Phon e Number [facility] [address] [place] [address] Us carotid duplex (06/15/2019 11:31 AM FUEL QUALITY TECH) Specimen Narrative Performed At [facility] Carotid A rtery Duplex Report [address] [facility] [address], [place] [address] For quality assurance monitor body purposes, the categorization of the degree of the stenosis of this exam is based on criteria described i n the IAC carotid stenosis grading white paper( www.intersocietal.org/Va scular) and Thanh Nava., Derrick Fountain., et al. Carotid artery stenosis: wagner-scale and Doppler US diagnosis-- Society of Radiologists in Ultrasound Consensus Conference. Radio logy. 2002; 229(2):340-6. Pat.Name: PAOLA KWONG Rebecca.ID: [id number]Date: 06/15/2019 Refer.MD: MILTON ELLINGTON MD Exam Time: 11:04:00 AM Study Type:Ca rotid Height: 67in Weight: 212lb BSA: 2.07 m2 Ag e: 1965,53Y Sex: MALE BP: 116/68 Sonogrphr: Suad Greco, RDCS, RVT Pat. Stat.:Inpatient Room: [address] ol: ED, CPT - 4: [address] Echo Deysi nt ID:[id number] Order ID: [id number] Reason for Study:Pre-op evaluation History / Clinical:Smoker, CAD, S/p TN, DM, HTN, HLD, Liver cirrhosis, Chest pain, [...] Radiology Results In - 2019 8:06 PM [facility]ound Laboratory Carotid Artery Dupl ex Report [address] [place] [address] For quality assurance monitor body purposes, the sarah gorization of the degree of the stenosis of this exam is based on criteria described in the IAC carotid stenosis grading white paper( www.intersocietal.org/Vascular) and Edward Nava, Herbie Fountain, et al. Carotid artery stenosis: wagner-scale and Doppler US diagnosis--Society of Radiologists in Ultrasound Consensus Conference. Radiology. 2003 Feb; 229(2):340-6. Pat.Name: PAOLA KWONG Pat.I D: [id number] St.Date: 06/15/2019 Refer.MD: MILTON ELLINGTON MD Exam Time: 11:04:00 AM Study Type:Carotid Height: 67in Weigh t: 212lb BSA: 2.07 m2 Age: 6 1965,53Y Sex: MALE BP: 116/68 Sonogrphr: Suad Greco RDCS, RVT Pat. Stat.:Inpatient Room: [address] Vol: ED, CPT - 4: [address]6714 Echo Event ID:[id number] Order ID: [id number] Reason for Study:Pre-op evaluation History / Clinical:Smoker, CAD, S/p TN, DM, HTN, HLD, Liver cirrhosis, Chest pain, [...] Valentín Vallejo MD, RPVI Performing Organization Address City/State/ZIP Code Phon e Number [facility] [address] [place] [address] Gastrointestinal panel (06/14/2019 5:48 AM FUEL QUALITY TECH)Only the most recent of2 results within the time period is included. Pathologist [facility] Gastrointestinal panel Negative for all pathogens tested: LYNN Negative for Salmonella SP[facility]ITISM Negative for Campylobacter [facility] Negative for Diarrheagenic E coli/Shigella Negative [...] - Nonpreserved Performing Organization Address [facility] Phon e Number [facility] DEPARTMENT OF PATHOLOGY AND [address] [place] [address] [phone] [address] Thyroid stimulating hormone (06/14/2019 5:14 AM FUEL QUALITY TECH) Pathologist Sig nature TSH 1.95 0.27 - 4.20 uIU/mL [facility] ITAL Specimen Plasma specimen Performing Organization Address City/[facility] Phon e Number [facility] DEPARTMENT OF PATHOLOGY AND [address] [place] [address] [phone] [address] T4, free (06/14/2019 5:14 AM FUEL QUALITY TECH) Pathologist Sig nature T4, free 0.8 (L) 0.9 - 1.7 ng/dL [facility] L Specimen Plasma specimen Performing Organization Address [facility] Phon e Number [facility] DEPARTMENT OF PATHOLOGY AND [address] [place] [address] [phone] [address] Hemoglobin A1c (06/14/2019 5:14 AM FUEL QUALITY TECH) Hemoglobin A1C 12.6 (H) 4.0 - 5.6 % [facility] Comment: HOSPITAL HbA1c cutoffs for [...] 1 diabetes. Specimen Blood Performing Organization Address City/[facility] Phon e Number [facility] DEPARTMENT OF PATHOLOGY AND [address] [place] [address] [address] Lipid panel (06/14/2019 5:14 AM FUEL QUALITY TECH) Cholesterol 177 <200 mg/dL [facility] Triglycerides 407 (H) <150 mg/dL [facility] HDL cholesterol 32 (L) >40 mg/dL [facility] LDL cholesterol 104 (H)Comment: <100 mg/dL [facility] Result obtained by SPIRITISM direct [facility] measurement [facility]id [facility] interpretation Comment: SPIRITISM Total Cholesterol (mg/dL) HOSPIT [place] <200 Desirable [...] mg/dL) Specimen Plasma specimen Performing Organization Address City/[facility] Phon e Number [facility] DEPARTMENT OF PATHOLOGY AND [address] [place] [phone] GENOMIC MEDICINE [address] [address] Manual differential (06/14/2019 4:59 AM FUEL QUALITY TECH) Manual differential PERFORMED [facility] Neutrophils 53.0 39.0 - 69.0 % [facility] Lymphocytes 36.0 25.0 - 45.0 % [facility] Monocytes 6.0 0.0 - 10.0 % [facility] Eosinophils 4.0 0.0 - 5.0 % [facility] Basophils 1.0 0.0 - 1.0 % [facility] Metamyelocytes 0 % [facility] Promyelocytes 0 % [facility] Platelet slide review Rebekah adequate [facility] Anisocytosis Moderate [facility] Polychromasia Moderate [facility] Ovalocytes Moderate [facility] Specimen Performing Organization Address City/[facility] Phon e Number [facility] DEPARTMENT OF PATHOLOGY AND [address] [place] [phone] [facility] [address] [place] [address] Influenza antigen (06/12/2019 9:15 PM FUEL QUALITY TECH) Influenza antigen Negative for Influenza A/B antigen. [facility] Comment: HOSPITAL Specimen Information Specimen Source: Nares Specimen Site: Right Specimen Nares - Right Performing Organization Address [facility] Phon e Number [facility] DEPARTMENT OF PATHOLOGY AND [address] [place] [address] [phone] [address] Partial thromboplastin time, activated (06/12/2019 7:49 PM FUEL QUALITY TECH) PTT 28.1 23.0 - 36.0 [facility] Comment: [facility] PTT therapeutic range for unfractionated heparin is 61.0-112.0 seconds which corresponds to Anti-Xa 0.3-0.7 U/ml. Specimen Blood Performing Organization Address [facility] Phon e Number [facility] DEPARTMENT OF PATHOLOGY AND [address] [place] [address] [phone] [address] after 03/24/2019 Insurance Payer Benefit Plan / Subscriber ID Effective Dates Phone Addre ss Type Group [place] [employer] [facility] [id number] 2019-[employer] CHOICE EXCHANGE EXCHANGE t [employer] Advance Directives For more information, please contact: [phone] Type Date Recorded Patient Reading Professor Explanati on Advance Directives, Living 03/20/2018 10:24 PM Will and Medical Power of Weighbridge Operator Code Status Date Activated Date Inactivated Comments [...]
--- OUTSIDE RECORDS SUMMARY | 2020-03-24 12:35 | XMS REPORT | Clinical Summary ---
:1965 Author Organization [facility] Address [address] [place] [address] Care Team Providers Name Role Phone MD [...] Not on file Last Filed Vital Signs Not on file Plan of Treatment Health Maintenance Due Date Last Done Comments COLON CANCER SCREENING COLONOSCOPY 1965 PNEUMOCOCCAL VACCINE 0-64 YRS (1 of 1 - PPSV23) 07/30/1973 DIABETIC EYE EXAM 07/30/1977 DIABETIC FOOT EXAM 07/30/1977 URINE MICROALBUMIN 07/30/1977 LIPID PANEL 07/30/2002 HEMOGLOBIN A1C 04/07/2019 01/06/2019 INFLUENZA VACCINE (#1) 2019 Results Not on fileafter 03/24/2019 Advance Directives For more information, please contact: [phone] Code Status Date Activated Date Inactivated Comments Full Code 01/06/2019 5:51 PM 01/11/2019 7:13 PM This code status was determined by: Patient
--- OUTSIDE RECORDS SUMMARY | 2020-03-24 12:38 | XMS REPORT | Continuity of Care Document ---
:1965 Author Organization [facility] t Address 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 Attending Clinician Aniceto Palomino MD Attending Clinician Erick BOSS Attending Clinician Mario RN Attending Clinician Unavailable Ryan Jeffery MD Attending Clinician Chandana BOSS, O. Attending Clinician Lupe RN Attending Clinician Unavailable Maico Tyler MD Attending Clinician Serafin Whitehead MD Attending Clinician Farhad CROONA Attending Clinician Unavailable NOBLE RODRIGUES Attending Clinician Unavailable Candie BOSS Admitting Clinician CHANDANA Admitting Clinician Unavailable NOBLE RODRIGUES Admitting Clinician Unavailable Payers Payer Name Policy Type Policy Effective Date Expiration Date Sour ce Number [facility] [id number] 2019 [place] CHOICE 00:00:00 [place] [facility] EXCHANGE MARKETPLACExxxxxx [id number] esentExchange Problems Condition Condition Condition Status Onset Resolution Last Treating Co mments Source Name Details Category Date Date Treatment Clinician Date Diabetic Diabetic Disease Active [place] peripheral peripheral 06-16 [facility] neuropathy neuropathy 00:00: st 00 Chronic Chronic Disease Active [place] kidney kidney 06-16 [facility] disease, disease, 00:00: st stage III stage III 00 (moderate) (moderate) Diarrhea, Diarrhea, Disease Active Ferdinand ston unspecifie unspecifie 06-16 [facility] d d 00:00: st 00 Edema of Edema of Disease Active [place] left orbit left orbit 06-16 Me thodi 00:00: st Hyperglyce Hyperglyce Disease Active [facility] cristóbal cristóbal 2-15 Methodi 00:00: st 00 [...] Active [facility] on 01-08 [facility] - 00:00: Medical 00 Center CKD CKD Disease Active [facility] (chronic 01-08 [facility] - kidney kidney 00:00: Medical disease) disease) 00 Center Acute Acute Disease Active 2017-04 [place] renal renal 05-20 [facility] failure failure 00:00: st 00 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-14 Meth susi diabetes diabetes 00:00: st mellitus mellitus 00 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 0-13 Methodi 00:00: st 00 [...] Essential Disease Active Ferdinand ston hypertensi hypertensi 06 [facility] on on 00:00: st 00 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 8 [facility] disease disease 00:00: st involving involving 00 [place] coronary coronary artery of artery of [place] heart with heart with angina angina pectoris pectoris Cirrhosis Cirrhosis Disease Active Ferdinand ston 12-01 Method[facility] 00:00: st 00 Hypertrigl Hypertrigl Disease Active H [facility] yceridemia yceridemia 12-01 Me thodi 00:00: st 00 Depression Depression Disease Active [place] 8 [facility] 00:00: st 00 Allergies, Adverse Reactions, Alerts Allergy Allergy Status Severity Reaction(s) Onset Inactive Treating Comm ents Source Name Type Date Date Clinician Ketorola Propensi Active Hallucinatio [facility] ty to ns 2-15 Methodi adverse [...] s to drug Codeine Propensi Active Hives [place] ty to 8-06 [facility] adverse 00:00: st reaction 00 s to drug Hydrocod Propensi Active Hives, [place] one-Acet ty to Itching 2-28 Methodi aminophe adverse 00:00: st n reaction 00 s to drug Family History Family Member Diagnosis Comments Start Date Stop Date Source Natural father No Known Problem [facility] Natural father Diabetes [place] [facility] Natural mother Heart disease [facility] Natural mother Hypertension [facility] Natural mother Diabetes [place] [facility] Natural mother Hypertension [place] Bahai Social History Social Habit Start Date Stop Date Quantity Comments Source History SDSD [facility] History SDOH [facility] - Alcohol Binge [facility] History of tobacco Cigarette Smoker [place] use Bahai Sex Assigned At [place] Bahai Cigarettes smoked 2019-07-06 2019-07-06 [place] current (pack per 00:00:00 00:00:[address] day) - Reported Tobacco use and 2019-07-06 2019-07-06 Never used [place] exposure 00:00:00 00:00:00 [place]ai Alcohol intake 2019-07-06 2019-07-06 Current [place] 00:00:00 00:00:00 non-drinker of Bahai alcohol (finding) History [facility] 2019-01-06 2019-01-[address] [facility] - Alcohol Frequency 00:00:00 00:00:00 [facility] Tobacco Comment 2019-01-06 2019-01-06 smokes [address] [facility] - 00:00:00 00:00:00 day, started [facility] 3 years ago Smoking Status Start Date Stop Date Source Current every day smoker 2019-07-06 00:00:00 [facility] [place] Medications Ordered Filled Start Stop Current [...] 2019- No 40mg QD Take 1 Ferdinand stefanin e 3-21 04-20 tablet (40 Methodi (PROTONIX) 00:00: 23:59 mg total) s t 40 MG EC 00 :00 by mouth tablet daily for 30 days. gabapentin 2019- No 1800mg QD Take 1,800 [place] (NEURONTIN) 3-20 03-20 mg by Method i 300 mg 17:37: 00:[address] capsule 04 :00 every morning. citalopram 2020- No 20mg QD Take 20 mg [place] (CeleXA) 20 3-20 03-20 by mouth Met hodi MG tablet 17:37: 00:[address] 04 :00 lisinopril 2019- 2020- No 20mg QD Take 20 mg [place] (PRINIVIL,Z 3-20 -20 by mouth Met hodi ESTRIL) 20 17:37: 00:[address] mg tablet 04 :00 clopidogrel 2020- No 75mg QD Take 75 mg [place] (PLAVIX) 75 -20 03-20 by mouth Met hodi mg tablet 17:37: [...] as needed for mild pain. aspirin 325 2020- No 325mg Take 325 [place] MG tablet 3-20 03-20 mg by Methodi 17:37: 00:[address] 04 :00 daily. atenolol 2020- No 50mg QD Take 50 mg [place] (TENORMIN) 3-20 -20 by mouth Meth susi 50 MG 12:21: 00:[address] tablet 02 :00 atenoloL 2019-0 2020- No 50mg QD Take 1 [place] (TENORMIN) 3-20 04-19 tablet (50 Me thodi 50 MG 00:00: 23:59 mg total) st tablet 00 :00 by mouth daily for 30 days. citalopram 2020- No 20mg QD Take 1 [place] (CeleXA) 20 3-20 04-19 tablet (20 M ethodi MG tablet 00:00: 23:59 mg total) st 00 :00 by mouth daily for 30 days. gabapentin 2020-0 2020- No 300mg QD Take 0.5 [place] (NEURONTIN) 07-15- tablets Meth susi 600 mg 00:00: 23:59 ([address] tablet 00 :00 total) by mouth nightly for 30 days. simvastatin 2019-0 2020- No 40mg QD Take 0.5 [place] (ZOCOR) 80 -15 08- tablets Metho di MG tablet 00:00: 23:59 ([address] 00 :00 total) by mouth nightly for 30 days. brimonidine 2020-0 2020- No 1[drp] Q.[id number] Administer [place] (ALPHAGAN) 07-15 [id number] 1 drop Methodi 0.15 % 00:00: 23:[address] ophthalmic 00 :00 left eye solution every 8 (eight) hours for 30 days. calcium 2019-0 2020- No 667mg Q.[id number] Take 1 [place] acetate,tate 07-15 [id number] capsule Methodi sphat bind, 00:00: 23:59 3D ([address] (PHOSLO) 00 :00 total) by 667 mg mouth 3 capsule (three) times a day with meals for 30 days. dorzolamide 2019-0 2020- No 1[drp] Q.5D Administer [place] -timolol 07-15 1 drop [facility] (COSOPT) 00:00: [...] QD Inject 6 [place] lispro 3-20 -19 Units [facility] (HumaLOG) 00:00: 23:[address] 100 unit/mL 00 :00 skin daily injection before lunch for 30 days. insulin NPH 2019-2019- No 20U QD Inject 20 [place] (HumuLIN-N) 07-15 Units Method i 100 unit/mL 00:00: 23:[address] injection 00 :00 skin daily for 30 days. isosorbide 2019-2019- No 60mg QD Take 1 [place] mononitrate 07-15 tablet (60 M ethodi (IMDUR) 60 00:00: 23:59 mg total) s t MG 24 hr 00 :00 by mouth tablet daily for 30 days. latanoprost 2019-2019- No 1[drp] QD Administer [place] (XALATAN) 07-15 [...] a day for 30 days. methocarbam 2019- No 500mg Q.[id number] Take 1 [place] oL 07-15 [id number] tablet Method i (ROBAXIN) 00:00: 23:59 3D [...] 2019-2019- No 17g QD Take 17 g [place] e glycol 07-15 by mouth Method i (MIRALAX) 00:00: 23:[address] 17 gram 00 :00 30 days. packet riFAXimin 2019-2019- No 550mg Q.5D Take 1 [place] (XIFAXAN) 07-15 tablet Methodi 550 mg 00:00: 23:59 ([address] tablet 00 :00 total) by mouth 2 (two) times a day for 30 days. sevelamer 2020- No 800mg Q.[id number] Take 1 [place] (RENVELA) 07-15 [id number] tablet M ethodi 800 mg 00:00: 23:59 [...] 3U QD Inject 3 [place] lispro 07-15 Units [facility]i (HumaLOG) 00:00: 23:[address] 100 unit/mL 00 :00 skin injection nightly for 30 days. metoprolol 2018- Yes 50mg QD Take 1 [facility] (TOPROL-XL) -17 tablet (50 Tabby kes - 50 MG 24 hr 00:00: mg total) M edical tablet 00 by mouth Center daily. aspirin 81 2018- Yes 81mg QD Take [address] MG chewable 9-16 by mouth Luke s - tablet 17:13: daily. [address] citalopram 2018-0 Yes 20mg QD Take [address] (CELEXA) 20 9-16 by mouth Luke s - MG tablet 17:13: [facility] [address] gabapentin 2019-0 Yes 300mg QD Take [address] (NEURONTIN) 9-16 mg by Lukes - 300 MG 17:13: mouth Medical capsule 05 daily. [place] clopidogrel 2019-0 Yes 75mg QD Take [address] (PLAVIX) 75 9-16 by mouth Luke s - mg tablet 17:13: [facility]. [facility] [address] simvastatin 2019-0 Yes 80mg QD Take [address] (ZOCOR) 80 9-16 by mouth Lukes - MG tablet 17:13: [facility]. [facility] [address] spironolact 2019-0 Yes 25mg QD Take [address] one 9-16 by mouth Lukes - (ALDACTONE) 17:13: daily. Medi warren [address] [place] [address] tablet levETIRAcet Yes 500mg QD Take [address] (KEPPRA) 9-16 mg by Lukes - 500 MG 17:13: mouth Medical tablet 05 daily. [place] insulin Yes 80U Inject 80 [facility] 70/30, 9-16 Units Lukes - insulin 17:13: subcutaneo Medi warren NPH-insulin 05 usly 2 Center regular, (two) (HUMULIN times 70/30) 100 daily unit/mL before (70-30) meals. injection travoprost Yes 1[drp] QD Place [address] (TRAVATAN 9-[address] [facility] - Z) 0.004 % 17:13: both eyes Me dical Drop 05 nightly. [place] ophthalmic drops furosemide Yes 20mg QD Take 1 [facility] (LASIX) 20 9-16 tablet (20 Doris es - MG tablet 00:00: mg total) Med ical 00 by mouth Center daily. ranolazine Yes 500mg Q.5D Take [address] (RANEXA) 9-16 tablet Lukes - 500 MG 12 00:00: (500 mg Medic al hr tablet 00 total) by Cente r mouth 2 (two) times daily. ergocalcife 2017-04- No [id number] Q7D Take 1 [place] rol 06-05 [...] 2019- No 20mg QD Take 20 mg L[facility] (CeleXA) 20 8-09 03-20 by mouth Met hodi MG tablet 00:00: 00:[address] 00 :00 traMADol Yes 50mg Q6H Take 50 mg Ferdinand ston (ULTRAM) 50 4-28 by mouth Meth susi mg tablet 00:00: every 6 st 00 (six) hours as needed. simvastatin 2015-04 No 40mg QD Take 40 mg [facility] (ZOCOR) 80 0-24 03-20 by mouth Meth susi MG tablet 00:00: 00:[address] 00 :00 Vital Signs Vital Name Observation Time Observation Value Comments Source Systolic blood 2019-12-28 22:43:00 122 mm[Hg] Ismaelto n Bahai pressure Diastolic blood 2019-12-28 22:43:00 73 mm[Hg] Anthony on Bahai pressure Heart rate 2019-12-28 22:43:00 74 /min [...] Tu, Kelvin Johnson PANEL TROPONIN 2019-12-28 19:16:00 , Kelvin Johnson B NATRIURETIC PEPTIDE 2019-12-28 19:16:00 , AnilNishant Johnson ESTIMATED GFR 2019-12-28 19:16:00 , Kelvin Johnson ECG 12-LEAD 2019-12-28 18:32:49 , Kelvin Johnson POC GLUCOSE 2019-07-16 12:29:00 [place] POC GLUCOSE 2019-07-16 08:40:00 [place] BASIC METABOLIC PANEL 2019-07-16 04:00:00 uYnier Stephens Wiley PHOSPHORUS LEVEL 2019-07-16 04:00:00 Yunier [...] Wright ESTIMATED GFR 2019-07-15 05:30:00 Andrews Wright Nh [facility]odist POC GLUCOSE 2019-07-14 21:08:00 [place] POC GLUCOSE 2019-07-14 16:55:00 [place] POC GLUCOSE 2019-07-14 13:49:00 [place] POC GLUCOSE 2019-07-14 11:48:00 [place] HEMODIALYSIS 2019-07-14 09:13:12 Tani StephensshielaNayanjalen [place] ethodist Wiley POC GLUCOSE 2019-07-14 08:13:00 [place] BASIC METABOLIC PANEL 2019-07-14 05:10:00 Sachi Stephensbbar Ferdinand hernández Bahai Wiley MAGNESIUM LEVEL 2019-07-14 05:10:00 Tani StephensulSilvioNayan Lefty [place] ethodist Wiley PHOSPHORUS LEVEL 2019-07-14 05:10:00 AngeloYunier Bahai Wiley HC COMPLETE BLD COUNT 2019-07-14 05:10:00 Tani StephensHenry hernández Bahai W/AUTO DIFF Wiley ESTIMATED GFR 2019-07-14 05:10:00 Tani StephensshielaNayanjalen [place] ethodist Wiley POC GLUCOSE 2019-07-14 02:44:00 [place] POC GLUCOSE 2019-07-13 21:27:00 [place] POC GLUCOSE 2019-07-13 16:22:00 [place] POC GLUCOSE 2019-07-13 13:08:00 [place] POC GLUCOSE 2019-07-13 07:55:00 [place] BASIC METABOLIC PANEL 2019-07-13 03:25:00 Sachi Stephensashlyn hernández Bahai Wiley MAGNESIUM LEVEL 2019-07-13 03:25:00 Angelo Yunier [place] ethodist Wiley PHOSPHORUS LEVEL 2019-07-13 03:25:00 StephensYunier Wiley ESTIMATED GFR 2019-07-13 03:25:00 Angelo Yunier [place] ethodist Wiley POC GLUCOSE 2019-07-12 21:00:00 [place] POC GLUCOSE 2019-07-12 17:06:00 [place] POC GLUCOSE 2019-07-12 16:06:00 [place] POC GLUCOSE 2019-07-12 14:25:00 [place] POC GLUCOSE 2019-07-12 12:07:00 [place] HEMODIALYSIS 2019-07-12 08:45:38 Angelo Yunier [place] ethodist Wiley POC GLUCOSE 2019-07-12 08:44:00 [place] BASIC METABOLIC PANEL 2019-07-12 04:00:00 Yunier Stephens Wiley MAGNESIUM LEVEL 2019-07-12 04:00:00 StephensYunier ethodist [...] BASIC METABOLIC PANEL 2019-07-11 04:00:00 Yunier Stephens Wiley MAGNESIUM LEVEL 2019-07-11 04:00:00 Yunier Stephens ethodist Wiley PHOSPHORUS LEVEL 2019-07-11 04:00:00 Yunier Stephens Wiley ESTIMATED GFR 2019-07-11 04:00:00 Yunier Stephens ethodist Wiley POC GLUCOSE 2019-07-11 00:11:00 [place] POC GLUCOSE 2019-07-10 22:12:00 [place] POC GLUCOSE 2019-07-10 17:24:00 [place] BASIC METABOLIC PANEL 2019-07-10 13:40:00 Yunier Stephens Wiley MAGNESIUM LEVEL 2019-07-10 13:40:00 Stephens, Yunier [place] ethodist Wiley PHOSPHORUS LEVEL 2019-07-10 13:40:00 Yunier Stephens Wiley HC COMPLETE BLD COUNT 2019-07-10 13:40:00 Yunier Stephens Bahai W/AUTO DIFF Wiley FERRITIN LEVEL 2019-07-10 13:40:00 StephensYunier ethodist Wiley TOTAL IRON BINDING CAPACITY 2019-07-10 [...] BASIC METABOLIC PANEL 2019-07-09 04:00:00 Yunier Stephens Bahai Wiley MAGNESIUM LEVEL 2019-07-09 04:00:00 Yunier Stephens ethodist Wiley PHOSPHORUS LEVEL 2019-07-09 04:00:00 Yunier Stephens Wiley ESTIMATED GFR 2019-07-09 04:00:00 Yunier Stephens ethodist Wiley POC GLUCOSE 2019-07-08 21:16:00 [place] POC GLUCOSE 2019-07-08 16:19:00 [place] Bahai POC GLUCOSE 2019-07-08 13:42:00 [place] Bahai POC GLUCOSE 2019-07-08 07:57:00 [place] HEPATIC FUNCTION PANEL 2019-07-08 04:00:00 [place] Bahai BASIC METABOLIC PANEL 2019-07-08 04:00:00 Yunier Stephens Wiley MAGNESIUM LEVEL 2019-07-08 04:00:00 Yunier Stephens ethodist Wiley PHOSPHORUS LEVEL 2019-07-08 04:00:00 Yunier Stephens Wiley ESTIMATED GFR 2019-07-08 04:00:00 Yris [place] Me thodist POC GLUCOSE 2019-07-07 21:30:00 [place] HYPERSENSITIVITY 2019-07-07 17:30:00 [facility] Met hodjose PNEUMONITIS II Yoandy POC GLUCOSE 2019-07-07 17:19:00 [place] IMMUNOGLOBULIN G 2019-07-07 16:11:00 [facility] Met hodist [place] ANTI-NEUTROPHILIC 2019-07-07 14:30:00 Yunier Stephens CYTOPLASMIC ABS PANEL Wiley SS-B ANTIBODY 2019-07-07 14:30:00 [facility] Meth odist Yoandy CENTROMERE ANTIBODY 2019-07-07 14:30:00 [facility] Bahai Yoandy DOUBLE-STRANDED DNA (DSDNA) 2019-07-07 14:30:00 Tim Stephens Bahai ANTIBODIES, CRITHIDIA Wiley POC GLUCOSE 2019-07-07 12:08:00 [place] POC GLUCOSE 2019-07-07 07:41:00 [place] HEPATIC FUNCTION PANEL 2019-07-07 04:00:00 [place] Bahai BASIC METABOLIC PANEL 2019-07-07 04:00:00 Yunier Stephens [...] Wiley ESTIMATED GFR 2019-07-06 05:20:00 Yris [place] Nh thodist POC GLUCOSE 2019-07-06 04:50:00 [place] POC GLUCOSE 2019-07-05 21:41:00 [place] POC GLUCOSE 2019-07-05 18:11:00 [place] POC GLUCOSE 2019-07-05 16:19:00 [place] POC GLUCOSE 2019-07-05 12:39:00 [place] TTE COMPLETE, WO CONTRAST, 2019-07-05 09:25:06 [place] W DOPPLER ([id number]) POC GLUCOSE 2019-07-05 08:17:00 [place] BASIC METABOLIC PANEL 2019-07-05 05:14:00 Yunier Stephens Bahai Wiley MAGNESIUM LEVEL 2019-07-05 05:14:00 Yunier Stephens ethodist Wiley PHOSPHORUS LEVEL 2019-07-05 05:14:00 Yunier Stephens Wiley VANCOMYCIN LEVEL, RANDOM 2019-07-05 05:14:00 [place] ESTIMATED GFR 2019-07-05 05:14:00 [place] HEPATIC FUNCTION PANEL 2019-07-05 05:14:00 [place] POC GLUCOSE 2019-07-04 21:44:00 [place] POC GLUCOSE 2019-07-04 17:22:00 [place] POC GLUCOSE 2019-07-04 15:52:00 [place] POC GLUCOSE 2019-07-04 11:56:00 [place] POC GLUCOSE 2019-07-04 07:49:00 [place] BASIC METABOLIC PANEL 2019-07-04 05:16:00 Yunier Stephens Bahai Wiley MAGNESIUM LEVEL 2019-07-04 05:16:00 Yunier Stephens ethodist Wiley PHOSPHORUS LEVEL 2019-07-04 05:16:00 Yunier Stephens Wiley ESTIMATED GFR 2019-07-04 05:16:00 Yunier Stephens ethodist Wiley POC GLUCOSE 2019-07-03 21:52:00 [place] POC GLUCOSE 2019-07-03 16:16:00 [place] POC GLUCOSE 2019-07-03 12:31:00 [place] POC GLUCOSE 2019-07-03 11:50:00 [place] POC GLUCOSE 2019-07-03 07:48:00 [place] BASIC METABOLIC PANEL 2019-07-03 04:00:00 Yunier Stephens Wiley MAGNESIUM LEVEL 2019-07-03 04:00:00 Yunier Stephens [...] BASIC METABOLIC PANEL 2019-07-02 04:00:00 Yunier Stephens Wiley MAGNESIUM LEVEL 2019-07-02 04:00:00 Yunier Stephens [...] BASIC METABOLIC PANEL 2019-06-30 04:03:00 Yunier Stephens Bahai Wiley MAGNESIUM LEVEL 2019-06-30 04:03:00 Yunier Stephens [...] [place] ESTIMATED GFR 2019-06-29 04:54:00 Yris [place] Nh [facility]odist POC GLUCOSE 2019-06-28 20:33:00 [place] POC GLUCOSE 2019-06-28 16:06:00 [place] POC GLUCOSE 2019-06-28 12:29:00 [place] HEPATIC FUNCTION PANEL 2019-06-28 12:23:00 Yris Lagos ECG 12-LEAD 2019-06-28 09:41:10 [place] POC GLUCOSE 2019-06-28 09:14:00 [place] TROPONIN 2019-06-28 09:13:00 [place] HEPATIC FUNCTION PANEL 2019-06-28 09:13:00 [place] Bahai BASIC METABOLIC PANEL 2019-06-28 05:22:00 Angelo Yunier hernández Bahai Wiley MAGNESIUM LEVEL 2019-06-28 05:22:00 StephensYunier ethodist Wiley PHOSPHORUS LEVEL 2019-06-28 05:22:00 StephensYunier Wiley VANCOMYCIN LEVEL, RANDOM 2019-06-28 05:22:00 [place] ESTIMATED GFR 2019-06-28 05:22:00 [place] POC GLUCOSE 2019-06-27 21:03:00 [place] POC GLUCOSE 2019-06-27 17:04:00 [place] POC GLUCOSE 2019-06-27 14:07:00 [place] POC GLUCOSE 2019-06-27 11:57:00 [place] POC GLUCOSE 2019-06-27 08:26:00 [place] ECG 12-LEAD 2019-06-27 08:13:50 Usha Oquendo odjose BASIC METABOLIC PANEL 2019-06-27 05:14:00 Angelo Yunier hernández Bahai Wiley MAGNESIUM LEVEL 2019-06-27 05:14:00 Yunier Stephens ethodist Wiley PHOSPHORUS LEVEL 2019-06-27 05:14:00 Yunier Stephensist Wiley VANCOMYCIN LEVEL, RANDOM 2019-06-27 05:14:00 [place] ESTIMATED GFR 2019-06-27 05:14:00 [place] POC GLUCOSE 2019-06-26 21:21:00 [place] POC GLUCOSE 2019-06-26 19:41:00 [place] POC GLUCOSE 2019-06-26 19:12:00 [place] ULTRAFILTRATION 2019-06-26 13:39:23 Andrews Wright Nh thodist POC GLUCOSE 2019-06-26 12:05:00 [place] POC GLUCOSE 2019-06-26 08:54:00 [place] BASIC METABOLIC PANEL 2019-06-26 06:25:00 Yunier Stephens Wiley MAGNESIUM LEVEL 2019-06-26 06:25:00 Yunier Stephens ethodist Wiley PHOSPHORUS LEVEL 2019-06-26 06:25:00 Yunier Stephens Wiley HC COMPLETE BLD COUNT 2019-06-26 06:25:00 Yunier Stephens Bahai W/AUTO DIFF Wiley VANCOMYCIN LEVEL, RANDOM 2019-06-26 06:25:00 [place] ESTIMATED GFR 2019-06-26 06:25:00 [place] POC GLUCOSE 2019-06-25 23:39:00 [place] HEMODIALYSIS 2019-06-25 21:44:30 Andrews Wright Nh thodist POC GLUCOSE 2019-06-25 21:14:00 [place] BASIC METABOLIC PANEL 2019-06-25 18:45:00 Yunier Stephens Bahai Wiley PHOSPHORUS LEVEL 2019-06-25 18:45:00 Yunier Stephens Wiley ESTIMATED GFR 2019-06-25 18:45:00 Yunier Stephens ethodist Wiley POC GLUCOSE 2019-06-25 15:45:00 [place] POC GLUCOSE 2019-06-25 11:30:00 [place] POC GLUCOSE 2019-06-25 07:47:00 [place] POC GLUCOSE 2019-06-25 00:05:00 [place] POC GLUCOSE 2019-06-24 21:12:00 [place] POC GLUCOSE 2019-06-24 16:22:00 [place] POC GLUCOSE 2019-06-24 13:17:00 [place] HEMODIALYSIS 2019-06-24 11:11:02 Angelo Yunier Lefty [place] ethodist Wiley POC GLUCOSE 2019-06-24 07:35:00 [place] BASIC METABOLIC PANEL 2019-06-24 04:00:00 StephensYunier Bahai Wiley MAGNESIUM LEVEL 2019-06-24 04:00:00 Angelo Yunier Olea [facility] ethodist Wiley PHOSPHORUS LEVEL 2019-06-24 04:00:00 StephensYunier Bahai Wiley HEPATIC FUNCTION PANEL 2019-06-24 04:00:00 Yris Lagos Bahai HC COMPLETE BLD COUNT 2019-06-24 04:00:00 Yunier Stephens Bahai W/AUTO DIFF Wiley ESTIMATED GFR 2019-06-24 04:00:00 Stephens, Yunier Lefty [place] ethodist Wiley POC GLUCOSE 2019-06-23 18:00:00 [place] HEMODIALYSIS 2019-06-23 12:21:38 Stephens, Yunier Olea [facility] ethodist Wiley POC GLUCOSE 2019-06-23 11:18:00 [place] IR TUNNELED DIALYSIS 2019-06-23 10:03:03 [place] CATHETER PLACEMENT POC GLUCOSE 2019-06-23 09:54:00 [place] POC GLUCOSE 2019-06-23 08:19:00 [place] BASIC METABOLIC PANEL 2019-06-23 05:30:00 Yunier Stephens Bahai Wiley MAGNESIUM LEVEL 2019-06-23 05:30:00 Stepehns, Yunier [place] ethodist Wiley PHOSPHORUS LEVEL 2019-06-23 05:30:00 Yunier Stephens Bahai Wiley HEPATIC FUNCTION PANEL 2019-06-23 05:30:00 Yris [place]os Bahai HC COMPLETE BLD COUNT 2019-06-23 05:30:00 Yunier Stephens Bahai W/AUTO DIFF Wiley ESTIMATED GFR 2019-06-23 05:30:00 Yunier Stephens ethodist Wiley POC GLUCOSE 2019-06-22 21:30:00 [place] POC GLUCOSE 2019-06-22 12:28:00 [place] Bahai POC GLUCOSE 2019-06-22 08:38:00 [place] BASIC METABOLIC PANEL 2019-06-22 04:30:00 Yunier Stephens Bahai Wiley MAGNESIUM LEVEL 2019-06-22 04:30:00 Yunier Stephens ethodist Wiley PHOSPHORUS LEVEL 2019-06-22 04:30:00 Yunier Stephens Wiley HC COMPLETE BLD COUNT 2019-06-22 04:30:00 Yunier Stephens Bahai W/AUTO DIFF Wiley HEPATIC FUNCTION PANEL 2019-06-22 04:30:00 Yris [place] ESTIMATED GFR 2019-06-22 04:30:00 Yris Lagos Nh thodist POC GLUCOSE 2019-06-22 00:07:00 [place] Bahai POC GLUCOSE 2019-06-21 21:03:00 [place] Bahai POC GLUCOSE 2019-06-21 19:26:00 [place] Bahai POC GLUCOSE 2019-06-21 16:33:00 [place] XR ABDOMEN 1 VW PORTABLE 2019-06-21 16:08:00 Yris Lagos POC GLUCOSE 2019-06-21 11:46:00 [place] POC GLUCOSE 2019-06-21 08:15:00 [place] BASIC METABOLIC PANEL 2019-06-21 04:00:00 Yunier Stephens Bahai Wiley MAGNESIUM LEVEL 2019-06-21 04:00:00 Yunier Stephens [...] HEPATIC FUNCTION PANEL 2019-06-20 04:00:00 Yris [place]os Bahai BASIC METABOLIC PANEL 2019-06-20 04:00:00 Yunier Stephens Bahai Wiley MAGNESIUM LEVEL 2019-06-20 04:00:00 Yunier Stephens ethodist Wiley PHOSPHORUS LEVEL 2019-06-20 04:00:00 Yunier Stephens Wiley ESTIMATED GFR 2019-06-20 04:00:00 Yris [place] thodist POC GLUCOSE 2019-06-19 21:31:00 Milton Ellington Bahai CREATININE LEVEL, URINE, 2019-06-19 19:06:00 Javan Mcdowell RANDOM PROTEIN, URINE, RANDOM 2019-06-19 19:06:00 Javan Mcdowell Bahai POC GLUCOSE 2019-06-19 16:08:00 Milton Ellingtonist POC GLUCOSE 2019-06-19 12:34:00 Milton Ellington Bahai POC GLUCOSE 2019-06-19 07:42:00 Milton Ellington ANTI MITOCHONDRIA SCREEN 2019-06-19 00:00:00 Yris Lagos Bahai HEPATIC FUNCTION PANEL 2019-06-19 00:00:00 Yris Lagos Bahai BASIC METABOLIC PANEL 2019-06-19 00:00:00 Yunier Stephens Wiley MAGNESIUM LEVEL 2019-06-19 00:00:00 Yunier Stephens ethodist Wiley PHOSPHORUS LEVEL 2019-06-19 00:00:00 Yunier Stephens Wiley ESTIMATED GFR 2019-06-19 00:00:00 Yunier Stephens ethodist Wiley POC GLUCOSE 2019-06-18 21:10:00 Milton Ellington POC GLUCOSE 2019-06-18 16:07:00 Milton Ellington POC GLUCOSE 2019-06-18 11:14:00 Milton Ellington POC GLUCOSE 2019-06-18 07:29:00 Milton Ellington URINE CULTURE 2019-06-18 07:24:00 Usha Oquendo Meth odjose URINALYSIS SCREEN AND 2019-06-18 05:30:00 Usha Oquendo MICROSCOPY, WITH REFLEX TO CULTURE PROTHROMBIN TIME WITH INR 2019-06-18 05:00:00 Yris Lagos HC COMPLETE BLD COUNT 2019-06-18 05:00:00 Yunier Stephens W/AUTO DIFF Wiley HEPATITIS B SURFACE AB, 2019-06-18 05:00:00 Yris Lagos QUANTITATIVE AMMONIA LEVEL 2019-06-18 05:00:00 Yris aLgos thodist HEPATIC FUNCTION PANEL 2019-06-18 04:00:00 Yris Lagos BASIC METABOLIC PANEL 2019-06-18 04:00:00 Yunier Stephens Wiley MAGNESIUM LEVEL 2019-06-18 04:00:00 Yunier Stephensodist Wiley PHOSPHORUS LEVEL 2019-06-18 04:00:00 Yunier Stephens Wiley HEPATITIS A ANTIBODY IGM 2019-06-18 04:00:00 Yris Lagos HEPATITIS B CORE ANTIBODY 2019-06-18 04:00:00 Yris Lagos IGM HEPATITIS B CORE ANTIBODY 2019-06-18 04:00:00 Yris Lagos TOTAL HEPATITIS B SURFACE 2019-06-18 04:00:00 Yris Lagos ANTIBODY HEPATITIS B SURFACE ANTIGEN 2019-06-18 04:00:00 Lore Lagos HEPATITIS C ANTIBODY 2019-06-18 04:00:00 Demond Yris [place] CERULOPLASMIN LEVEL 2019-06-18 04:00:00 Demond Yris lynne Bahai ALPHA FETOPROTEIN 2019-06-18 04:00:00 Demond Yris [place] ALPHA-1 ANTITRYPSIN LEVEL 2019-06-18 04:00:00 Demond Yris [place]ist ANNE 2019-06-18 04:00:00 Abhilash Lagoscelestine Olea Me thodist GGT 2019-06-18 04:00:00 Yris Lagos Lefty Me thodist ESTIMATED GFR 2019-06-18 04:00:00 Yris Lagos Lefty Me thodist POC GLUCOSE 2019-06-17 21:17:00 Milton Ellingtonist POC GLUCOSE 2019-06-17 17:07:00 Milton Ellington US ABDOMEN COMPLETE 2019-06-17 16:48:45 Demond Yris lynne Bahai US ABDOMINAL DOPPLER 2019-06-17 16:48:35 Demond Yris torres Bahai US RENAL 2019-06-17 14:26:40 Usha Oquendo Meth odist POC GLUCOSE 2019-06-17 11:38:00 Milton Ellington Bahai POC GLUCOSE 2019-06-17 08:22:00 Milton Ellington CELIAC DISEASE REFLEXIVE 2019-06-17 04:53:00 Sharon Loving Bahai CASCADE BASIC METABOLIC PANEL 2019-06-17 04:53:00 Yunier Stephens Bahai Wiley MAGNESIUM LEVEL 2019-06-17 04:53:00 Yunier Stephens [...] INTERPRETATION URINE CULTURE 2019-06-12 19:49:00 Guillermo Jeffery Nh thodist HC COMPLETE BLD COUNT 2019-06-12 19:49:00 Guillermo Jeffery W/AUTO DIFF COMPREHENSIVE METABOLIC 2019-06-12 19:49:00 Guillermo Jeffery PANEL TROPONIN 2019-06-12 19:49:00 Milton Ellington B NATRIURETIC PEPTIDE 2019-06-12 19:49:00 Guillermo Jeffery PARTIAL THROMBOPLASTIN TIME 2019-06-12 19:49:00 Guillermo Jeffery Ala (PTT) PROTHROMBIN TIME WITH INR 2019-06-12 19:49:00 Guillermo Jeffery ESTIMATED GFR 2019-06-12 19:49:00 Guillermo Jeffery Nh thodist URINALYSIS SCREEN AND 2019-06-12 19:49:00 Guillermo Jeffery MICROSCOPY, WITH REFLEX TO CULTURE ECG 12-LEAD 2019-06-12 19:42:16 Guillermo Jeffery Nh thodist Plan of Care Planned Activity Planned Date Details Comments Source Future Scheduled 2020-06-30 DIABETES: RETINAL EYE Haris Johnson Test 00:00:00 EXAM [code = DIABETES: RETINAL EYE EXAM] Future Scheduled 2019-12-28 INFLUENZA VACCINE (#1) [facility] Test 00:[facility]:00 [code = INFLUENZA Medical Ce nter VACCINE (#1)] Future Scheduled 2019-11-27 INFLUENZA VACCINE Luis Johnson Test 00:00:00 [code = INFLUENZA VACCINE] Future Scheduled 2019-04-[address] [facility] Test 00:00[facility]00 measurement [facility] Center (procedure) [code = 43235084] Future Scheduled 2017-07-30 COLONOSCOPY SCREENING [place] Test 00:00:00 [code = COLONOSCOPY SCREENING] Future Scheduled 2017-07-30 SHINGLES VACCINES (#1) [place] Test 00:00:00 [code = SHINGLES VACCINES (#1)] Future Scheduled 2002-07-[address] [facility] Test 00:00:00 (procedure) [code = Medical Center 65625810] Future Scheduled 1977-07-[address] EXAM [facility] - Test 00:00:00 [code = DIABETIC EYE Medical Center EXAM] Future Scheduled 1977-07-[address] [facility] - Test 00:00:00 examination Medical Center (regime/therapy) [code = 256482410] Future Scheduled 1977-07-30 Urine screening for [facility] - Test 00:00:00 protein (procedure) Medical Center [code = 786442102] Future Scheduled 1977-07-30 DIABETIC FOOT EXAM [place] Test 00:00:00 [code = DIABETIC FOOT EXAM] Future Scheduled 1973-07-[address] [facility] - Test 00:00:00 0-64 YRS (1 of 1 - Medical C enter PPSV23) [code = PNEUMOCOCCAL VACCINE 0-64 YRS (1 of 1 - PPSV23)] Future Scheduled [address] [facility] - Test 00:00:00 malignant neoplasm of Medica l Center colon (procedure) [code = 209490374] Encounters Start End Encounter Admission Attending Care Care Encounter Source Date/Time Date/Time Type Type Clinicians Facility Department ID 2020-02-11 2020-02-11 Orders Doctor MARCE [id number] 00:00:00 00:00:00 Only UnassPRISCILA hunter [id number] Aurelia [facility] 4.2.7.2.686 [id number] 2020-02-01 2020-02-02 Emergency Roberto Owens [facility] 1.2.840.1 [id number] 00:52:00 14:15:00 Pam Schreiber 350.1.13.10 [place] 4.2.7.2.686 [place] [id number] 2020-01-19 2020-01-19 Telephone MARCE Rich [id number] 00:00:00 00:00:00 Yvette FRANCOIS 350.1.13.10 [facility] 4.2.7.2.686 [id number] 2020-01-07 2020-01-07 Letter Nurse, [facility] 1.2.840.114 [id number] 00:00:00 00:00:00 (Out) Urgent HEALTH 350.1.13.[address]2.686 [facility] [phone] Primary & 370 Specialty Care 2020-01-04 2020-01-04 Milk Pickup Driver 2, Adc Lab [facility] 1.2.840.114 [id number] 11:25:15 16:22:54 Visit [place] 350.1.13.10 [place] 4.2.7.2.686 Professio [phone] nal [facility] 2020-01-04 2020-01-04 [facility] [id number] 00:00:00 00:00:00 Sendil KatherineTadRobertTad Kathleen 350.1.13.10 [place] 4.2.7.2.686 Professio [id number] nal 0[facility] 2019-12-28 2019-12-28 Emergency TU, YEN-TE [facility] [id number] [place] 00:00:00 00:00:[address] 2019-06-12 2019-07-16 Inpatient [facility] [id number] [place] 00:00:00 00:00:00 MILTON [address] Results Test Description Test Time Test Comments Results Result Comments Source ECG 12 lead 2019-12-28 23:33:31 Test Item Value Reference Range Interpretation Comme nts Ventricular rate (test code = 253) 81 Atrial rate (test code = 255) 81 PA interval (test code = 266) 134 QRSD [...] 09:41,-Left posterior fascicular block is now seen- [place] MethodistCT Chest Wo Fzhucfwk2849-07-61 21:48:29Hm Interface, Radiology Results - 12/28/2019 9:51 [...] may represent some subcutaneous bruising for cellulitis. [facility]-LS90ERQYHrixeki MethodistCT Head Wo Zreozkbw6454-73-31 21:34:22 Hm Interface, Radiology Results 12/28/2019 9:37 PM CDTEXAM: CT HEAD WO [...] for acute intracranial abnormality.[id number] MethodistXR Chest 1 Vw Brucqunf5719-67-06 20:56:20 Interface, Radiology Results - 12/28/2019 8:59 PM CDTEXAMINATION: XR CHEST 1 VW PORTABLECLINICAL HISTORY: sobCOMPARISON: 06/12/2019.IMPRESSION:Right central venous catheter terminates overthe right atrium.Low lung volumes. Vascular crowding and/or congestion. No focal consolidation.No pleural effusion or pneumothorax. The cardiomediastinal silhouette is normal.No acute osseous abnormalities.[facility]-[id number] MethodistECG ED Preliminary Interpretation - Not an Lcqtz2931-39-40 20:54:49 Test Item Value Reference Range Interpretation Comments BRENT (test code = BRENT) Kelvin Palomino MD 12/30/2019 2:41 AMECG ED Preliminary Interpretation - Not an OrderPerformed by: Kelvin Palomino MDAuthorized by: Kelvin Palomino MD ECG reviewed by ED Physician in the absence of a welding production supervisor: yes Interpretation: Interpretation: abnormal Rate: ECG rate: 81 ECG rate assessment: normal Rhythm: Rhythm: sinus rhythm Conduction: Conduction: abnormal Abnormal conduction: complete RBBB Lab Interpretation Abnormal (test code = 89790-8) Lefty JohnsonB natriuretic fbetwyq0076-61-53 20:16:55 Test Item Value Reference Range Interpretation Comments BNP (test code = 31950-1) 318 pg/mL 0-100 H Lab Interpretation (test code = Abnormal 89059-5) Lefty JohnsonXbpyxrjvzWvzxfnha6323-33-77 20:16:40 Test Item Value Reference Range Interpretation Comments Troponin (test code 0.016 ng/mL 0-0.04 In patie nts suspected = 26922-8) of having a augusta cardial infarction, mara [...] by le ss than 0.020 ng/mL Lefty JohnsonComprehensive metabolic yoolf1532-33-32 20:01:50 Test Item Value Reference Range Interpretation Comments Sodium (test code = 139 135- 148 mEq/L 2951-2) Potassium (test code = 5.3 3.5- 5.0 mEq/L H 2823-3) Chloride (test code = 97 98- 112 mEq/L L 2074-0) CO2 (test code = 2027-) 27 24- 31 mEq/L Anion gap (test code = 15@ANIO 7- 15 mEq/L 43041-4) BUN (test code = 3094-0) 27 mg/dL 6-20 H Creatinine (test code = 3.84 mg/dL 0.7-1.2 H 2160-0) Glucose (test code = 252 mg/dL 65-99 H 2345-7) Calcium (test code = 8.8 mg/dL 8.3-10.2 35640-8) Protein (test code = 6.9 g/dL 6.3-8.3 -[place] n 2885-2) 4.6-7.0 g/dL1 week 4.4-7 .6 g/dL7 months-1y ear 5.1-7 .3 g/dL1-2 years 5.6-7 .5 g/dL>3 years 6.0-8 .0 g/dZ22-725 6.3-8 .3 g/dL Albumin (test code = 2.7 g/dL 3.5-5 L 175-7) A/G ratio (test code = 0.6 0.7-3.8 L 1759-0) Alkaline phosphatase 175 U/L 40-129 H (test code = 6768-6) AST (test code = 1920-8) 35 U/L 10-50 ALT (test code = 1742-6) 29 U/L 5-50 Total bilirubin (test 0.3 mg/dL 0-1.2 code = 1974-) Lab Interpretation (test Abnormal code = 22018-9) [place] MethodistEstimated [id number] 20:01:41 Test Item Value Reference Range Interpretation Comments Estimated GFR (test 17 mL/min/1.73 m2 Ev rowe Units code = 5488) InterpretationG 1 >=90 Cora l or highG2 60-89 Mildly decrease dG3a 45-59 Mil dly to moderately decr jbkegN8i 30-44 Moderately to s everely decreasedG4 15-29 Severe ly decreasedG5 <15 Kidney jesica lureThe eGFR was calcul ated using the Chron ic Kidney Disease Epidemiology Collaboration ( CKD-EPI) equation. Interpretation is based on recommendati ons of the National dney Foundation-Kidn ey Disease Outcome s Quality Initiat christa (NKF-KDOQI) pub lished in 2013. Lab Interpretation Abnormal (test code = 09967-1) [facility] MethodistC with platelet and npcmjetqqeqf0450-87-80 19:42:47 Test Item Value Reference Range Interpretation Comments WBC (test code = 74430-2) 5.65 4.50- 11.00 k/uL RBC (test code = 93016-7) 3.75 m/uL 4.4-6 L HGB (test code = 718-7) 12.7 g/dL 14-18 L HCT (test code = 4544-3) 36.6 % 41-51 L MCV (test code = 787-2) 97.6 fL 82-100 MCH (test code = 785-6) 33.9 pg 27-34 MCHC (test code = 786-4) 34.7 g/dL 31-37 RDW - SD (test code = 50.0 fL 37-55 56142-6) MPV (test code = 17637-9) 12.9 fL 8.8-13.2 Platelet count (test code 152 150- 400 k/uL = 00162-3) Nucleated RBC (test code 0.00 /100 WBC = 95068-4) Neutrophils (test code = 65.7 % 39-69 73183-2) Lymphocytes (test code = 24.6 % 25-45 L 05547-7) Monocytes (test code = 5.3 % 0-10 54385-8) Eosinophils (test code = 3.0 % 0-5 03584-3) Basophils (test code = 0.7 % 0-1 23635-1) Immature granulocytes 0.7 % 0-1 "Immat ure (test code = 46524-9) granul ocytes" (promyelocytes, myelocytes, metamyelocytes) Lab Interpretation (test Abnormal code = 38115-6) [facility] qyioimf7100-09-71 12:30:05 Test Item Value Reference Range Interpretation Comments POC glucose (test code = 253 mg/dL 65-99 H Ope rator Name: [id number]) Ney Liao vice ID: [id number] able: [facility] Notified rubber mold maker Interpretation (test Abnormal code = 86662-2) [place] MethodistBasic metabolic wzuwx0091-14-76 07:23:50 Test Item Value Reference Range Interpretation Comments Sodium (test code = 2951-2) 142 135- 148 mEq/L Potassium (test code = 2823-3) 4.3 3.5- 5.0 mEq/L Chloride (test code = 2075-0) 105 98- 112 mEq/L CO2 (test code = 8-9) 27 24- 31 mEq/L Anion gap (test code = 21010-2) 10@ANIO 7- 15 mEq/L BUN (test code = 3094-0) 46 mg/dL 6-20 H Creatinine (test code = 2160-0) 4.61 mg/dL 0.7-1.2 H Glucose (test code = 2345-7) 189 mg/dL 65-99 H Calcium (test code = 33921-8) 8.7 mg/dL 8.3-10.2 Lab Interpretation (test code = Abnormal 88522-9) [place] MethodistPhosphorus awnsi2288-15-27 07:23:49 Test Item Value Reference Range Interpretation Comments Phosphorus (test code = 2777-1) 4.3 mg/dL 2.4-4.5 [place] MethodistMagnesium aglsh8901-26-10 07:17:31 Test Item Value Reference Range Interpretation Comments Magnesium (test code = 85266-7) 1.9 mg/dL 1.6-2.6 [place] MethodistHypersensitivity pneumonitis [id number] 10:14:04 Test Item Value Reference Interpretation Comments Range Aspergillus flavus None Detected None-Detected Testing includes (test code = 37831-3) antibo dies directed at Aspergillus flavus, Aspergi llus fumigatus #2, Aspergillus fum igatus #3, Saccharomon ospora viridis, and Thermoactinomyc es candidus. Aspergillus fumigatus None Detected None-Detected #2 (test code = 84905-2) Aspergillus fumigatus None Detected None-Detected #3 (test code = 52251-9) Saccharomonospora None Detected None-Detected viridis (test code = 67862-6) Thermoactinomyces None Detected None-Detected Performe d by SRINIVAS mijaresus (test code = Terry sandyashley,500 56175-8) [place] [address] blv .EdRover, Roberto Almaguer MD, La lucinda. Director Thermoactinomyces NOT PERFORMED saccharii (test code = WITH THIS 71018-1) PANEL [place] MethodistHypersensitivity pneumonitis [id number] 01:53:46 Test Item Value Reference Interpretation Comments Range Aspergillus fumigatus None Detected None-Detected #1 (test code = 6808-0) Aspergillus fumigatus None Detected None-Detected #6 (test code = 6809-8) Aureobasidium None Detected None-Detected Testing incl udes pullulans (test code = antib odies directed 6810-6) at [facility] m pullulans, Aspergillus fum igatus #1, Aspergillus fumigatus #6, Micropolyspora faeni, [place] Serum an d Thermoactinomyc es vulgaris #1. [place] serum (test None Detected None-Detected code = 6733-0) Micropolyspora faeni None Detected None-Detected (test code = 6818-9) Thermoactinomyces None Detected None-Detected Performe d by [facility] vulgaris #1 (test code Labor [facility][note 3] = 6821-3) [place] [address] jyy .EdRover, Roberto Almaguer MD, [place] luc[place]. Director [place] MethodistFerritin qfdvp5268-70-28 14:34:03 Test Item Value Reference Range Interpretation Comments Ferritin level (test code = 2276-4) 214 ng/mL 30-400 [place] MethodistTotal iron binding jsshfhso5029-76-15 14:29:17 Test Item Value Reference Range Interpretation Comments Iron level (test code = 2498-4) 72 ug/dL 59-158 Iron binding capacity (test code = 298 ug/dL 326-398 1070-7) % Saturation (test code = 2502-3) 24.2 % 20-40 [place] MethodistAnti-neutrophilic cytoplasmic Abs nqmma2504-63-00 15:24:12 Test Item Value Reference Range Interpretation Comments ANCA screen (test code = 3472) Negative Negative [place] MethodistFL Modified Barium Bzvgrhv6947-28-19 15:02:46Hm Interface, Radiology Results Incoming - 07/09/2019 [...] refer to Speech Pathology report for further details.[facility]-[id number] and approved by vice president marketing & development/fellow: Eugenia Escamilla M.D.I, Adriana Morales MD, personally reviewed the images and resident's/fellow's findings and agree with the final report.Lefty JohnsonDNA Ab poahiu7197-93-67 14:55:49 Test Item Value Reference Range Interpretation Comments DNA Ab screen (test code = 1297) Not Detected Not-Detected [place] MethodjoseHepatic function narmb7550-35-52 07:12:14 Test Item Value Reference Range Interpretation Comments Albumin (test code = 2.4 g/dL 3.5-5 L 1751-7) Total bilirubin (test code <0.2 0-1.2 = 1974-2) Bilirubin direct (test <0.2 0-0.3 code = 1967-7) Alkaline phosphatase (test 133 U/L 40-129 H code = 6768-6) Protein (test code = 6.9 g/dL 6.3-8.3 -[place] n 2885-2) 4.6-7.0 g /dL1 week 4.4-7.6 g/dL 7 months-1year 5.1-7.3 g/dL 1-2 years 5.6-7.5 g/dL>3 years 6.0-8.0 g/zL59-229 6.3-8. 3 g/dL ALT (test code = 1742-6) 20 U/L 5-50 AST (test code = 1920-8) 20 U/L 10-50 Lab Interpretation (test Abnormal code = 97092-3) [place] MethodistImmunoglobulin [id number] 18:32:35 Test Item Value Reference Range Interpretation Comments IgG (test code = 2465-3) 1005 mg/dL 700-1600 [place] MethodistCentromere vwnqimua4803-63-83 18:10:06 Test Item Value Reference Range Interpretation Comments Centromere antibody <0.2 0.0- 0.9 AI (test code = 8068-9) Centromere antibody Negative AI Anti-kyrie tromere interp (test code = antibodi es are found 74232-4) in patients wit h systemic sclero sis (SSc or sclerod obinna), especially for those with limited cu taneous or CREST syndro me. Anti-centromere antibodies may also be found in patien ts with other rheumatic or connective tiss ue diseases. [place] MethodistScl-70 kzkrwffb1471-18-84 18:10:06 Test Item Value Reference Range Interpretation Comments Scleroderma SCL-70 Ab <0.2 0.0- 0.9 AI (test code = 56319-8) Scl-70 antibody interp Negative AI Anti- Scl-70 (test code = 5268) (topoisom erase I) antibodies are found in patients with s ystemic sclerosis (SSc or scleroderma), a nd have been reported t o be predictive of d iffuse cutaneous invol vement. Anti-Scl-70 ant ibodies may also be pre sent in patients with s ystemic lupus erythemat osus (SLE). [place] MethodistSS-A tbznsbeb0106-54-71 18:10:06 Test Item Value Reference Range Interpretation Comments Sjogren's SS-A <0.2 0.0- 0.9 AI antibody (test code = 47919-4) SS-A antibody interp Negative AI SS-A an tibody is (test code = 2235) sensitive for Sjogren's syndrome, but m ay also be positive with s ystemic lupus erythemat osus (SLE), and syst emic sclerosis. [place] MethodistSS-B iwtdpmxu5712-92-75 18:10:05 Test Item Value Reference Range Interpretation Comments Sjogren's SS-B <0.2 0.0- 0.9 AI antibody (test code = 3001) SS-B antibody interp Negative AI SS-B/La antibody is seen (test code = 2237) in patien ts with Sjogren syndrome, but m ay also be positive with s ystemic lupus erythemat osus (SLE), and syst emic sclerosis. [facility] Cardiac Blaxhqyq2492-64-44 19:51:26Hm Interface, Radiology Results Incoming 07/06/2019 7:54 PM CDTEXAMINATION: CT CARDIAC OVERREADCL [...] characterization with CT of the chest is recommendedMaywood MethodistCv cta coronary arteries w contrast and ffr if zfmcno7926-35-76 17:59:00Interface, Radiology Results In 07/06/2019 5:59 PM CDT Nuclear Cardiology and Cardiac CT [address] [place] [address] CTA Coronary Arteries ReportPat.Name: PAOLA KWONG Pat.ID: [id number] .Date: 07/06/2019 Refer.MD: MILTON ELLINGTON MDExrebeca Time: 1:09:00 PMStudy Type:CTA Coronary Arteries Height: 67in Weight: 212lb BSA: 2.07 m2 Age: 4 1965,53Y Sex: MALE BP: 151/83 HR: 54 bpm Nuclear Tech:Samina Beyer, RT(R)(CT)Pat. Stat.:Inpatient Tape Vol: 33.2, CPT - 4: CCTA w Thoracic Aorta (NonCongenital) 68182;[id number] Event ID:[id number] Order ID: [id number] Reason for Study:Pre-Op CABG, CAD History / Clinical:Coronary artery disease, Diabetes, Hyperlipidemia,Hypertension, S/P PCI 07/2007, Liver cirrhosis/Hepatitis CProcedures: CT Prospective(phases)Race: C SUMMARY: Technique: IV contrast was administered and sequential 0.[address] cutswere obtained through the chest using the Siemens Somatom Force CTscanner. Image post-processing consisting of multiplanar and 3Dreconstructions were performed using the HackMyPicworkstation. Interactive image viewing, volumetric display andanalysis were [...] refer to the separate radiology report in [facility] for anyaddi tional non-cardiovascular findings. STUDY QUALITYThe study quality is good.COMMENTSNone. FINDINGS: Signed 07/06/2019 05:59 Bethany Olvera MethodistSurgical pathology lamoofv5418-14-72 13:32:02 Test Item Value Reference Range Interpretation Comments Case number (test code = [id number]) Surgical pathology See link below for report (test code = PDF Lab Report 2255) Result status (test code This is Final Report = [id number]) for [id number] Lefty JohnsonHIV Ag/Ab rjfkjajffqe7394-64-77 09:39:34 Test Item Value Reference Range Interpretation Comments HIV Ag/Ab combination (test code Non-reactive Non-reactive = 5299) Lefty JohnsonProthrombin time with IUT1233-30-95 07:38:02 Test Item Value Reference Range Interpretation Comments Prothrombin time (test 14.5 11.5- 14.5 sec code = 5902-2) INR (test code = 1.1 The Interna tional 26533-9) Normalized Rati o (INR) is a therapeutic m onitoring tool for patien ts who are stable on oral anticoagulant t herapy. An INR of 2.0-3.0 is suggested for d eep vein thrombosis/pulm onary embolism. [place] MethodistC4 complement cfkovijps5453-21-65 07:25:14 Test Item Value Reference Range Interpretation Comments C4 complement (test code = 4498-2) 34 mg/dL 10-40 [place] MethodistC3 complement ishnojrdz3739-75-82 07:25:14 Test Item Value Reference Range Interpretation Comments C3 complement (test code = 4485-9) 133 mg/dL 90-180 [place] MethodistRheumatoid gpwotd8176-20-56 07:25:13 Test Item Value Reference Range Interpretation Comments Rheumatoid factor (test code = 36976-8) <10 0- 13 IU/mL [facility], TxistTransthoracic Echocardiogram Complete, (w Contrast, Strain and 3D if needed)2019-07-05 10:49:00Interface, Radiology Results In - 07/05/2019 10:49 AM CDT Echocardiography Report [address] [place] [address] Pat.Name: PAOLA KWONG Pat.ID: [id number].Date: 07/05/2019 Refer.MD: MILTON ELLINGTON MDExam Time: 7:54:00 AM Study Type:Routine Echo Height: 67in Weight: 212lb BSA: 2.07 m2 Age: 4 1965,53Y Sex: MALE BP: 157/71 Sonogrphr: Audrey Bella RDCS, RVSPat. Stat.:Inpatient Room: [facility] Study Status:Final Echo Event ID:[id number] Order ID: [id number] Reason for Study:Chest pain, suspected cardi ac [...] estimate PA systolic pressure. MEASUREMENTS: 2DParasternal Long [place] Ao An 2 cm LVPWd 1.5 cm [...] Signed 07/05/2019 10:49 Bethany Rain MethodistVancomycin level, ywxrxk8826-61-33 06:48:15 Test Item Value Reference Range Interpretation Comments Vancomycin, random (test code = 11.9 ug/mL 54326-7) Lefty BarkerIPUNC NEED PHYS SKILL,DX OR [id number] 14:59:18SEstela lim RN 07/02/2019 3:03 PMMidlineDate/Time: 07/02/2019 [...] Catheter Length (cm): 10 Catheter Lot Number: [id number] Catheter Expiration Date: 1Procedure Details: Landmarks identified: [...] tolerance of procedure: Tolerated well, no immediate complicationsMaywood MethodistVancomycin level, trough 2019-07-01 15:28:35 Test Item Value Reference Range Interpretation Comments Vancomycin, trough 23.0 ug/mL 10-20 HH Therapeut ic Ranges: (test code = 46279-2) Peak 30.0 - 40.0 ug/mL T rough 10.0 - 20.0 ug/mL Lab Interpretation Abnormal (test code = 50445-9) [facility] Transjugular Liver Ikyiae5218-13-26 16:47:45Hm Interface, Radiology Results 06/30/2019 4:50 PM CSTPerforming RadiologistJeveronica Lauren MD AssistantsNone Anesthesia TypeModerate sedation was administered by the procedure nurse and monitored by the procedure physician for a uzkq-dj-hvuk sedation time of 20 minutes. Lidocaine 1% was usedfor local anesthetic. Pre Procedure Ggeedqeso69-qtxz-fuj man with possible cirrhosis.. Post Procedure DiagnosisStatus [...] for local anesthetic. Using real-time ultrasound guidance, q63-kcncq micropuncture needle was used to access the [...] into the inferior vena cava. A long 9-Bahamian vascular sheath was then placed,andadvanced over the guidewire into the right atrium. Right atrial pressure measures were then obtained. A 5-Bahamian multipurpose catheter was advanced over the guidewire and used to select the right hepatic vein. A CO2 right hepatic venogram was performed. Pressure measurements were also obtained in boththe free and wedge positions. The 9-Bahamian vascular sheath was then advanced into the right hepatic vein. The transjugular liver biopsy system was advanced through the 9-Bahamian vascular sheath, and multiple 18-gauge core liver biopsy specimens were obtained and submitted to pathology. The transjugularliver biopsy system and 9-Bahamian vascular sheath were then removed from the [...] hepatic: 11 mmHg Wedge hepatic: 15 mmHg [facility]-[id number] MethodWilmington Hospitalti smooth muscle Ab erpmzw2911-50-46 14:32:24 Test Item Value Reference Range Interpretation Comments Anti smooth muscle Ab screen Not Detected Not-Detected (test code = 262) [facility] Tunneled Dialysis Catheter Scklxbpxm5542-05-76 07:28:35Hm Interface, Radiology Results Incoming 06/24/2019 7:31 AM CSTPERFORMING RADIOLOGIST:Will Petersen MD ASSISTANTS:None. ANESTHESIA TYPE:Moderate sedation was administered by the procedure nurse and monitored by the procedure physician for a total rlbx-ia-kewo sedation time of 8 minutes. Lidocaine 1% [...] cavoatrial junction. PLAN:-Catheter is ready for immediate use.[facility]-[id number] Methodchristus st. vincent physicians medical centerGram ybvcg1995-62-89 21:21:01Gram stain isolateRare WBC'sMany Gram negative rodsRare Gram positive cocci in pairs Comment: Specimen InformationSpecimen Source: DrainageSpecimen Site: Not otherwise specified [facility] MethodistAnti mitochondria drvody8735-95-75 15:12:05 Test Item Value Reference Range Interpretation Comments Anti mitochondria screen (test Not Detected Not-Detected code = 1686) [facility] MethodistXR Abdomen 1 Vw Bexvfnnn0573-61-68 18:02:41Hm Interface, Radiology Results 06/21/2019 6:05 PM CSTEXAMINATION: XR ABDOMEN 1 VW PORTABLECLINICAL HISTORY: Abd pain unspecified, BLQ abdominal pain rule out ileus or constipationCOMPARISON: Fluoroscopic images from 05/19/2008IMPRESSION:Artifact overlying the abdomen mildly limits evaluation.No dilated gas-filled loops of large or small bowel are noted. The patient is status post cholecystectomy.The bones of the abdomen and pelvis are unremarkable.The lung bases are clear.[facility]-[id number] MethodistProtein, urine, iawzds9361-05-11 20:50:36 Test Item Value Reference Range Interpretation Comments Protein, urine random (test code = 584 mg/dL 2888-6) [place] MethodistCreatinine level, urine, hriqfr8144-85-16 20:39:45 Test Item Value Reference Range Interpretation Comments Creatinine, urine, random (test code 99 mg/dL = 98194-3) [place] MethodistHepatitis B surface Ab, aasirspltzbt9509-17-82 18:16:55 Test Item Value Reference Range Interpretation [...] HBs 9.99 IU/L or less .. ..... Yharozfd95.00 I U/L or greater .... PositiveResults greater than 1,000.00 I U/L are reported as gre ater than 1,000.00 IU/L. This assay should not be u sed for blood donor scr eening, associated re-e ntry protocols, or f or screening Human Cell, Tis sues and Cellular and Ti ssue-Based Products (HCT/P ).Performed by [facility],[address], [place] [address] aeb .Aledia , Roberto Almaguer MD, Lab. Director Lefty JohnsonUrine ojxqlxd0217-96-93 10:35:14 Test Item Value Reference Range Interpretation Comments Urine culture No growth Specimen isolate (test after 24 InformationSpe cimen code = 53349-9) hours Source: Urin eSpecimen Site: Clean cat [place] EjbwdbyolTLC8268-40-96 13:23:19 Test Item Value Reference Range Interpretation Comments ANNE screen (test Negative Negative Test perfor med using NOVA code = 550) Lite DAPI ANNE k it (Indirect Immunofluoresce nce Assay) for Anti-Nuclea r Antibody on Angiologix QUANTA-Ly ser 160 Analyzer. [place] MethodistHepatitis B core antibody ldcgl4088-56-90 08:03:43 Test Item Value Reference Range Interpretation Comments Hepatitis B core total Ab (test Non-reactive Non-reactive code = 07172-8) [place] MethodistHepatitis B core antibody [id number] 08:03:43 Test Item Value Reference Range Interpretation Comments Hepatitis B core IgM (test code Non-reactive Non-reactive = 85500-6) [place] MethodistHepatitis A antibody [id number] 08:03:43 Test Item Value Reference Range Interpretation Comments Hepatitis A IgM (test code = Non-reactive Non-reactive 37020-9) [facility] MethodistHepatitis C mvtanzfk5702-06-10 08:03:43 Test Item Value Reference Range Interpretation Comments Hepatitis C Ab (test code = Non-reactive Non-reactive 51532-4) [place] MethodistAmmonia awfbw4566-22-53 08:01:41 Test Item Value Reference Range Interpretation Comments Ammonia (test code = 1841-6) 63 umol/L 16-60 H Lab Interpretation (test code = Abnormal 87645-9) [place] MethodistHepatitis B surface obsbphv4405-56-58 07:28:04 Test Item Value Reference Range Interpretation Comments Hepatitis B surface Ag (test Non-reactive Non-reactive code = 5195-3) [place] MethodistHepatitis B surface lqdnaeuo7637-60-10 07:28:04 Test Item Value Reference Range Interpretation Comments Hepatitis B surface Ab (test Non-reactive Non-reactive code = 81166-7) [place] MethodistUrinalysis screen and microscopy, with reflex to culture 2019-06-18 07:26:53 Test Item Value Reference Range Interpretation Comments Specimen site (test code = Clean catch 9667493) Color, UA (test code = 5778-6) Yellow Appearance, UA (test code = Cloudy 5767-9) Specific gravity, UA (test code = 1.011 1.001-1.035 5811-5) pH, UA (test code = 5803-2) 5.0 5.0-8.5 Protein, UA (test code = 96719-4) 3+ Negative A Glucose, UA (test code = 86950-5) 1+ Negative A Ketones, UA (test code = 2514-8) Negative Negative Bilirubin, UA (test code = Negative Negative 5770-3) Blood, UA (test code = 5794-3) Small Negative A Nitrite, UA (test code = 5802-4) Negative Negative Urobilinogen, UA (test code = <2.0 <2.0 08834-6) Leukocyte esterase, UA (test code Negative Negative = 5799-2) WBC, UA (test code = 5821-4) 14 0- 1 /HPF H RBC, UA (test code = 73590-5) 1 0- 5 /HPF Bacteria, UA (test code = Few None seen 30018-9) WBC clumps, UA (test code = Few A 41143-1) Yeast, UA (test code = 24422-2) None seen Yeast with pseudohyphae, UA (test None seen code = 73902-6) Amorphous crystals (test code = Few 57407-8) Granular casts, UA (test code = 1 0- 1 /LPF 5793-5) Lab Interpretation (test code = Abnormal 08732-0) [place] MethodistAlpha ghoytsjdrao6844-14-80 07:19:58 Test Item Value Reference Range Interpretation Comments Alpha fetoprotein 1.6 ng/mL 0-8.3 The Lexis 8000 AFP (test code = immunoassay was used. 60857-7) Results obtaine d with different assay methods or kits should not be used interchang eably and may be differen t. Lefty MethodistCeruloplasmin dcesr5343-50-23 07:17:32 Test Item Value Reference Range Interpretation Comments Ceruloplasmin (test code = 2064-4) 22 mg/dL 15-30 Lefty OrofuypcpUNA1245-37-64 07:17:31 Test Item Value Reference Range Interpretation Comments GGT (test code = 2324-2) 80 U/L 0-59 H Lab Interpretation (test code = Abnormal 20306-7) [facility] MethodistAlpha-1 antitrypsin jbewm4931-04-41 07:17:31 Test Item Value Reference Range Interpretation Comments Alpha-1 antitrypsin (test code = 166 mg/dL 90-200 6771-0) Lefty JohnsonTissue transglutaminase Ab, CwD3516-09-53 17:53:26 Test Item Value Reference Range Interpretation Comments Tissue 1 U/mL 0-3 No further sheldon ac transglutaminase Ab, testing to be IgA (test code = 2324) perfo rmed.INTERPRETIV E INFORMATION: Tissue Transglutaminas e (tTG) Antibody, IgA3 U/mL or less: Negative4-10 U/ mL: Weak Veqgkajd08 U/mL or greater: PositivePresenc e of the [...] for disease.Perform ed by [facility],[address], [place] [id number] [email or web address], Roberto Almaguer MD, Juanita jane. Director BRENT (test code = BRENT) CO2 called with reae back to Yu Kwon/ [facility] [place] 06/16/2019 08:04 by JN1. Lefty JohnsonUS Abdomen Zilszixn2814-10-65 16:55:54Hm Interface, Radiology Results Incoming - 06/17/2019 4:59 PM CSTEXAM: US ABDOMEN [...] to participate in the care of your patient.[facility]-[id number] [facility]Pres[facility] Abdominal Fsoqvph5894-91-81 16:52:25Hm Interface, Radiology Results 06/17/2019 4:55 PM [...] artery and vein are identified and are patent.[facility]-[id number] Methodist Renal 2019-06-17 14:29:49Hm Interface, Radiology Results 06/17/2019 2:32 PM CSTEXAMINATION: US RENALCLINICAL HISTORY: Flank pain stone disease suspectedCOMPARISON: None.IMPRESSION: The right kidney measures 12cm in length.The left kidney measures 13.9 cm in length.There is no renal mass, stone, cyst, or hydronephrosis. Echogenicity is normal.The urinary bladder is unremarkable.[facility]-[id number] MethodistCeliac disease reflexive cascade 2019-06-17 07:55:20 Test Item Value Reference Range Interpretation Comments IgA (test code = 449 mg/dL 68-408 H Total IgA i s within 2458-8) or higher than established ran ges. Tissue Transglutaminas e, IgA to follow.REFERENC E INTERVAL: Immunoglobulin AAccess complet e set of age- and/or gender-specific reference inter vals for this test i n the [employer] Test Directory ([facility]).P erfor med by [employer],[address] [place] [address] fza .dianboom, Roberto Almaguer MD, La b. Director BRENT (test code = BRENT) CO2 called with reae back to Yu Kwon/ [facility] [place] 06/16/2019 08:04 by JN1. Lab Interpretation Abnormal (test code = 39593-2) [place] MethodistFecal gvtgpvrwhucs7649-16-63 13:53:32 Test Item Value Reference Range Interpretation Comments Fecal calprotectin (test code = 57.64 <15.6-120mg/kg 30016-7) [facility] MethodistUs carotid ttjopb8133-52-63 20:05:00Interface, Radiology Results In - 06/15/2019 8:06 PM [facility] Vascular Ultrasound Laboratory Carotid Artery Duplex [address] [place] [address] For quality intern purposes, the categorization of the degree of the stenosis of this exam is based on criteria described in the IAC carotid stenosis grading white paper( www.intersocietal.org/Vascular) and Thanh Nava., Derrick Fountain., et al. Carotid artery stenosis: wagner-scale and Doppler US diagnosis--Society of Radiologists in Ultrasound Consensus Conference. Radiology. 2003 Feb; 229(2):340-6. Pat.Name: PAOLA KWONG Rebecca.ID: [id number] .Date: 06/15/2019 Refer.MD: MILTON ELLINGTON MDExam Time: 11:04:00 AM Study Type:Carotid Height: 67in Weight: 212lb BSA: 2.07 m2 Age: 6 1965,53Y Sex: MALE BP: 116/68 Sonogrphr: Suad Greco RDCS, RVTPat. Stat.:Inpatient Room: [address] Vol: ED, CPT - 4: 79875 Echo Event ID:[id number] Order ID: [id number] Reason for Study:Pre-op evaluation History / Clinical:Smoker, [...] Sign ed 06/15/2019 08:05 PMValentín Vallejo MD, [facility] MethodistSpirometry, diffusion, lung woogaib4554-93-23 14:29:17 Test Item Value Reference Range Interpretation [...] Predicted 68.3 % (test code = 5445) [facility]2020-02-17 13:46:31Gastrointestinal panelNegative for all pathogens tested:Negative for [...] Comment: Specimen InformationSpecimen Source: StoolSpecimen Site: Nonpreserved [facility] MethodistManual fbyswwtmkagh6390-38-57 08:23:11 Test Item Value Reference Range Interpretation Comments Manual differential (test code = PERFORMED 02305-5) Neutrophils (test code = 53.0 % 39-69 58955-3) Lymphocytes (test code = 36.0 % 25-45 53107-0) Monocytes (test code = 88398-1) 6.0 % 0-10 Eosinophils (test code = 4.0 % 0-5 99729-7) Basophils (test code = 76350-9) 1.0 % 0-1 Metamyelocytes (test code = 0 % 740-1) Promyelocytes (test code = 0 % 783-1) Platelet slide review (test code Rebekah adequate = 06464-6) Anisocytosis (test code = 702-1) Moderate Polychromasia (test code = Moderate 94837-1) Ovalocytes (test code = 774-0) Moderate [facility] CenterHemoglobin [id number] 08:03:34 Test Item Value Reference Range Interpretation Comments Hemoglobin A1C (test 12.6 % 4-5.6 H HbA1c c utoffs for code = 88091-2) diagnosing diabetes:4.0% - 5.6% = normal5.7% - 6.4% = increased risk for diabetes (prediabetes)9> =6.5% = coabpoqx5Hkqn s for glycemic contro l (ADA 2016)< 7.0% Ta rget for non adults with win betes. More or less stringent targe ts may be appropriate for individual virginie ents. <7.5% Target for Children and adolescents wit h type 1 diabetes. Lab Interpretation (test Abnormal code = 22848-2) [facility] MethodistT4, hsrf1737-76-84 06:34:11 Test Item Value Reference Range Interpretation Comments T4, free (test code = 3024-7) 0.8 ng/dL 0.9-1.7 L Lab Interpretation (test code = Abnormal 38730-8) [facility] MethodistThyroid stimulating dodvyrh5336-85-84 06:34:11 Test Item Value Reference Range Interpretation Comments TSH (test code = 3016-3) 1.95 0.27- 4.20 uIU/mL [place] MethodistLipid yutob3356-66-87 06:30:05 Test Item Value Reference Interpretation Comments [...] (mg/dL) interpretation (test < 200 code = 33330-9) Desirable 200-239 Borderline -high >=240 Hi gh [...] mg/dL) Lab Interpretation Abnormal (test code = 37016-2) [place] MethodistInfluenza mdtfzps6570-79-00 00:42:57 Test Item Value Reference Range Interpretation Comments Influenza Negative for Specimen antigen (test Influenza A/B Information ecimen code = 06862-9) antigen. Source: [facility] Site: Right [facility] MethodistPartial thromboplastin time, okuuxsxfj0407-93-73 20:31:46 Test Item Value Reference Range Interpretation Comments PTT (test code = 28.1 23.0- 36.0 [place] [address]-5) unfractionated heparin is61.0-112.0 se conds which corresponds to Anti-Xa0.3-0.7 U/ml. [place] MethodistPOCT-GLUCOSE [id number] 12:50:00 Test Item Value Reference Range Interpretation Comments POC-GLUCOSE METER 119 mg/dL 70-[address] [facility] [address] ([facility]) (test code = [place] 1538) [address] BASIC METABOLIC [id number] 06:16:00 Test Item Value Reference Range Interpretation [...] PATIEN TS. CBC W/PLT COUNT & AUTO [id number] 05:42:00 Test Item Value Reference Range Interpretation [...] 417) IMMATURE GRANULOCYTES-RELATIVE 1 % 0-1 PERCENT (CHASITY) (test code = 2801) POCT-GLUCOSE [id number] 20:34:00 Test Item Value Reference Range Interpretation Comments POC-GLUCOSE METER 205 mg/dL 70-[address] [facility] [address] (CHASITY) (test code = [place] 1538) [address] CT, CHEST, WITHOUT [id number] 18:24:00FINAL REPORT TECHNIQUE: CT scan of the [...] Klein Verified Date/Time: 01/10/2019 18:24:57 Reading Location: [facility] C013Y CT Body Reading Room POCT-GLUCOSE [id number] 17:31:00 Test Item Value Reference Range Interpretation Comments POC-GLUCOSE METER 183 mg/dL 70-[address] [facility] [address] ([facility]) (test code = [place] 1538) [address] CT, BRAIN, WITHOUT [id number] 14:47:00FINAL REPORT CT, BRAIN, WITHOUT CONTRAST INDICATION: [...] Lubna Lr MDReport Verified Date/Time: 01/10/2019 14:47:25 -[id number] 11:36:00 Test Item Value Reference Range Interpretation Comments D-DIMER QUANTITATIVE ([facility]) 2.14 MG/L FEU <0.50 H (test code [...] within 95-100% range.RAD, CHEST, 1 VIEW, NON [id number] 08:17:00Reason for exam:->chest painShould this be performed [...] MDReport Verified Date/Time: 01/10/2019 08:17:19 Reading Location: [address] Ortho Consult Reading Room TROPONIN [id number] 07:02:00 Test Item Value Reference Range Interpretation [...] H (test code = 700) BASIC METABOLIC [id number] 06:51:00 Test Item Value Reference Range Interpretation [...] PATIEN TS. CBC W/PLT COUNT & AUTO [id number] 06:27:00 Test Item Value Reference Range Interpretation [...] PERCENT (BEAKER) (test code = 2801) TROPONIN [id number] 23:52:00 Test Item Value Reference Range Interpretation [...] acidosis, acute neurological disease, and persistent tachyarrhythmia.POCT-GLUCOSE [id number] 22:03:00 Test Item Value Reference Range Interpretation Comments POC-GLUCOSE METER 315 mg/dL 70-[address] [facility] [address] ([facility]) (test code = [facility] [place] 1538) [address] POCT-GLUCOSE [id number] 20:02:00 Test Item Value Reference Range Interpretation Comments POC-GLUCOSE METER 250 mg/dL 70-[address] [facility] [address] ([facility]) (test code = [facility] [place] 1538) [address] TROPONIN [id number] 19:05:00 Test Item Value Reference Range Interpretation [...] acidosis, acute neurological disease, and persistent tachyarrhythmia.POCT-GLUCOSE [id number] 17:40:00 Test Item Value Reference Range Interpretation Comments POC-GLUCOSE METER 246 mg/dL 70-110 H TESTED AT [place] [address] ([facility]) (test code = [facility] 1538) [address] POCT-GLUCOSE [id number] 08:11:00 Test Item Value Reference Range Interpretation Comments POC-GLUCOSE METER 243 mg/dL 70-110 H TESTED AT [place] [address] ([facility]) (test code = [facility] 1538) [address] BASIC METABOLIC [id number] 05:04:00 Test Item Value Reference Range Interpretation [...] I S NOT APPLICABLE FOR DIALYSIS PATIASHLY LOPEZ. [id number] 04:56:00 Test Item Value Reference Range Interpretation Comments PARTIAL THROMBOPLASTIN TIME 35.0 seconds 22.5-36.0 (BEAKER) (test code = 760) CBC W/PLT COUNT & AUTO [id number] 04:48:00 Test Item Value Reference Range Interpretation [...] PERCENT (BEAKER) (test code = 2801) POCT-GLUCOSE [id number] 22:08:00 Test Item Value Reference Range Interpretation Comments POC-GLUCOSE METER 364 mg/dL 70-110 H Notified R N MD/TESTED (BEAKER) (test code = AT [address] [address]) [facility] [address] POCT-GLUCOSE [id number] 17:05:00 Test Item Value Reference Range Interpretation Comments POC-GLUCOSE METER 389 mg/dL 70-110 H Notified R N MD/TESTED (BEAKER) (test code = AT [address] 15[address]) [place] [address] BASIC METABOLIC [id number] 16:28:00 Test Item Value Reference Range Interpretation [...] S NOT APPLICABLE FOR DIALYSIS PATIEN TS. PT/[id number] 16:26:00 Test Item Value Reference Range Interpretation Comments PROTIME (BEAKER) (test code = 13.4 seconds 11.9-14.2 759) INR (BEAKER) (test code = 370) 1.1 <=5.9 PARTIAL THROMBOPLASTIN TIME 32.0 seconds 22.5-36.0 (BEJENY) (test code = 760) Effective 09/23/2018: PT Reference Range ChangeNew: 11.9-14.2 Previous: 11.7- 14.7RECOMMENDED COUMADIN/WARFARIN INR THERAPY RANGESSTANDARD DOSE: 2.0-3.0 Includes: PROPHYLAXIS for venous thrombosis, systemic embolization; TREATMENT for venous thrombosis and/or pulmonary embolus.HIGH RISK: Target INR is2.5-3.5 for patients wiht mechanical heart valves.[id number] 16:26:00 Test Item Value Reference Range Interpretation Comments PARTIAL THROMBOPLASTIN TIME 32.0 seconds 22.5-36.0 (MICHELLAKER) (test code = 760) POCT-GLUCOSE [id number] 12:06:00 Test Item Value Reference Range Interpretation Comments POC-GLUCOSE METER 321 mg/dL 70-110 H Notified R Christy BOSS/TESTED ([facility]) (test code = AT [facility] [address] [facility]) [facility] [address] POCT-GLUCOSE [id number] 08:29:00 Test Item Value Reference Range Interpretation Comments POC-GLUCOSE METER 263 mg/dL 70-110 H TESTED AT [place] [address] ([facility]) (test code = [place] [address]) [address] [id number] 04:54:00 Test Item Value Reference Range Interpretation Comments PARTIAL THROMBOPLASTIN TIME 31.0 seconds 22.5-36.0 ([facility]) (test code = 760) CBC W/PLT COUNT & AUTO [id number] 04:43:00 Test Item Value Reference Range Interpretation [...] PERCENT (BEAKER) (test code = 2801) POCT-GLUCOSE [id number] 22:11:00 Test Item Value Reference Range Interpretation Comments POC-GLUCOSE METER 319 mg/dL 70-110 H Notified Rohith Lynne MD/TESTED (BEAKER) (test code = AT [facility] [address]) [place] [address] [id number] 20:11:00 Test Item Value Reference Range Interpretation Comments PARTIAL THROMBOPLASTIN TIME 33.3 seconds 22.5-36.0 (BEAKER) (test code = 760) POCT-GLUCOSE [id number] 18:49:00 Test Item Value Reference Range Interpretation Comments POC-GLUCOSE METER 309 mg/dL 70-[address] [facility] [address] ([facility]) (test code = [place] 1538) [address] POCT-GLUCOSE [id number] 14:48:00 Test Item Value Reference Range Interpretation Comments POC-GLUCOSE METER 161 mg/dL 70-110 H TESTED AT [place] [address] ([facility]) (test code = [place] [facility] 1538) [address] POCT-GLUCOSE [id number] 14:46:00 Test Item Value Reference Range Interpretation Comments POC-GLUCOSE METER 159 mg/dL 70-110 H TESTED AT [place] [address] ([facility]) (test code = [place] [facility] 1538) [address] TROPONIN [id number] 13:58:00 Test Item Value Reference Range Interpretation Comments TROPONIN I ([facility]) (test code = 397) < ng/mL 0.00-0.03 [...] failure, acidosis, acute neurological disease, and persistent tachyarrhythmia.[id number] 12:25:00 Test Item Value Reference Range Interpretation Comments PARTIAL THROMBOPLASTIN TIME 30.3 seconds 22.5-36.0 ([facility]) (test code = 760) POCT-GLUCOSE [id number] 12:18:00 Test Item Value Reference Range Interpretation Comments POC-GLUCOSE METER 168 mg/dL 70-110 H TESTED AT [place] [address] ([facility]) (test code = [place] 1538) [address] POCT-GLUCOSE [id number] 11:06:00 Test Item Value Reference Range Interpretation Comments POC-GLUCOSE METER 180 mg/dL 70-110 H TESTED AT [place] [address] ([facility]) (test code = [place] 1538) [address] POCT-GLUCOSE [id number] 10:21:00 Test Item Value Reference Range Interpretation Comments POC-GLUCOSE METER 195 mg/dL 70-110 H TESTED AT [place] [address] ([facility]) (test code = [place] 1538) [address] POCT-GLUCOSE [id number] 10:21:00 Test Item Value Reference Range Interpretation Comments POC-GLUCOSE METER 180 mg/dL 70-110 H TESTED AT [place] [id number] ([facility]) (test code = [place] 1538) [address] POCT-GLUCOSE [id number] 08:06:00 Test Item Value Reference Range Interpretation Comments POC-GLUCOSE METER 218 mg/dL 70-110 H TESTED AT [place] [address] ([facility]) (test code = [place] [facility] 1538) [address] TROPONIN [id number] 07:00:00 Test Item Value Reference Range Interpretation Comments TROPONIN I ([facility]) (test code = 0.01 ng/mL 0.00-0.03 397) [...] afterwardsOnce on admission and Daily AM afterwardsPOCT-GLUCOSE [id number] 06:58:00 Test Item Value Reference Range Interpretation Comments POC-GLUCOSE METER 248 mg/dL 70-110 H TESTED AT [place] [address] ([facility]) (test code = [place] [facility] 1538) [address] [id number] 06:54:00 Test Item Value Reference Range Interpretation Comments PHOSPHORUS ([facility]) (test code = 2.5 mg/dL 2.3-4.7 604) Once on admission and Daily AM afterwardsOnce on admission and Daily AM afterwardsOnce on admission and Daily AM [id number] 06:54:00 Test Item Value Reference Range Interpretation Comments MAGNESIUM ([facility] [facility] (test code = 2.2 mg/dL 1.6-2.6 627) [...] Daily AM afterwardsCBC W/PLT COUNT & AUTO [id number] 06:42:00 Test Item Value Reference Range Interpretation [...] 0-1 PERCENT (BEAKER) (test code = 2801) [id number] 06:28:00 Test Item Value Reference Range Interpretation Comments PARTIAL THROMBOPLASTIN TIME 30.6 seconds 22.5-36.0 (BEAKER) (test code = 760) POCT-GLUCOSE [id number] 06:01:00 Test Item Value Reference Range Interpretation Comments POC-GLUCOSE METER 266 mg/dL 70-[address] [facility] [address] ([facility]) (test code = [place] 1538) [address] POCT-GLUCOSE [id number] 04:57:00 Test Item Value Reference Range Interpretation Comments POC-GLUCOSE METER 271 mg/dL 70-[address] [facility] [address] (BEAKER) (test code = [place] 1538) [address] POCT-GLUCOSE [id number] 04:05:00 Test Item Value Reference Range Interpretation Comments POC-GLUCOSE METER 308 mg/dL 70-110 H Notified Rohith Lynne MD/TESTED ([facility]) (test code = AT [place] [address]) [facility] 7703 0 POCT-GLUCOSE [id number] 02:57:00 Test Item Value Reference Range Interpretation Comments POC-GLUCOSE METER 343 mg/dL 70-110 H Notified Rohith Lynne MD/TESTED ([facility]) (test code = AT [place] [address]) [place] [id number] 0 RAD, CHEST, 1 VIEW, NON [id number] 02:27:00Reason for exam:->mediastinal wideningShould this be performed [...] osseous structures are intact. Signed: Emmanuelle Kline [facility] Verified Date/Time: 01/07/2019 02:27:45 POCT-GLUCOSE [id number] 01:57:00 Test Item Value Reference Range Interpretation Comments POC-GLUCOSE METER 369 mg/dL 70-110 H TESTED AT [place] [address] ([facility]) (test code = [place] [address]) [address] POCT-GLUCOSE [id number] 01:06:00 Test Item Value Reference Range Interpretation Comments POC-GLUCOSE METER 395 mg/dL 70-110 H Notified Rohith Lynne MD/TESTED ([facility]) (test code = AT [place] [address]) [place] [address] 0 TROPONIN [id number] 00:36:00 Test Item Value Reference Range Interpretation [...] Reference Range Interpretation Comments B-TYPE NATRIURETIC PEPTIDE ([facility]) 151 pg/mL 0-100 H (test code = 700) [id number] 00:19:00 Test Item Value Reference Range Interpretation Comments PARTIAL THROMBOPLASTIN TIME 28.2 seconds 22.5-36.0 ([facility]) (test code = 760) Prior to initiating heparinPOCT-GLUCOSE [id number] 00:16:00 Test Item Value Reference Range Interpretation Comments POC-GLUCOSE METER 413 mg/dL 70-110 HH TESTED AT [place] [address] ([facility]) (test code = [place] [address]) [address] POCT-GLUCOSE [id number] 23:10:00 Test Item Value Reference Range Interpretation Comments POC-GLUCOSE METER 452 mg/dL 70-110 HH Notified Rohith Lynne MD/TESTED ([facility]) (test code = AT [place] [address]) [facility] 7703 0 POCT-GLUCOSE [id number] 22:06:00 Test Item Value Reference Range Interpretation Comments POC-GLUCOSE METER 383 mg/dL 70-110 H TESTED AT [place] [address] ([facility]) (test code = [place] [address]) [address] CT, BRAIN, WITHOUT [id number] 21:38:00FINAL REPORT CT Head without contrast CLINICAL [...] Signed: Emmanuelle Kline Verified Date/Time: 01/06/2019 21:38:52 [facility] [id number] 21:12:00 Test Item Value Reference Range Interpretation [...] NOT APPLICABLE FOR DIALYSIS PATIEN TS. HEMOGLOBIN [id number] 20:17:00 Test Item Value Reference Range Interpretation Comments HEMOGLOBIN A1C (BEAKER) (test code = 11.9 % 4.3-6.1 H 368) TROPONIN [id number] 19:52:00 Test Item Value Reference Range Interpretation [...] acute neurological disease, and persistent tachyarrhythmia.HEPATIC FUNCTION [id number] 19:46:00 Test Item Value Reference Range Interpretation [...] (test code = 347) hemolyzed Specimen moderately [id number] 19:32:00 Test Item Value Reference Range Interpretation Comments PARTIAL THROMBOPLASTIN TIME 28.1 seconds 22.5-36.0 (BEAKER) (test code = 760) PROTHROMBIN TIME/[id number] 19:31:00 Test Item Value Reference Range Interpretation [...] mechanical heart valves.CBC W/PLT COUNT & AUTO [id number] 19:25:00 Test Item Value Reference Range Interpretation [...] 417) IMMATURE GRANULOCYTES-RELATIVE 1 % 0-1 PERCENT (AKER) (test code = 2801) POCT-GLUCOSE [id number] 17:51:00 Test Item Value Reference Range Interpretation Comments POC-GLUCOSE METER 342 mg/dL 70-110 H Notified R Christy BOSS/TESTED ([facility]) (test code = AT [facility] [address] [address]) [facility] [address] 0
--- OUTSIDE RECORDS SUMMARY | 2020-03-24 12:40 | XMS REPORT | Summary of Care ---
:1965 Author Organization [facility] - [facility] Address [address] [place] [address] Care Team Providers Name Role Phone Zain Perry Insurance [facility] Primary Care Provider Reason for Referral Other (Routine) Status Reason Specialty Diagnoses / Referred By Referred To Procedures Contact Contact New Request Cardiology Diagnoses History of MS (myocardial infarction) Christopher Dick MD Dempsey, [place] Procedures Discharge Follow-up: Specialty Provider YONAS SARAH; 2 Weeks [address] RustMena MD [place], [place] [address] [id number] [address] Phone: [place], [place] [phone] Fax: Other (Routine) Status Reason Specialty Diagnoses / Procedures Referred By C ontact Referred To Contact Closed Nephrology Diagnoses ESRD (end stage renal disease) Christopher Dick MD Aglieco, Fabio G, Procedures Discharge Follow-up: Specialty Provider STEVE CEJA; 3-5 Days 301 [place], [place] [address] [place] [address] [place], [place] Phone: [phone] Fax: (Routine) Status Reason Specialty Diagnoses / Referred By Referred To Procedures Contact Contact New Request Diagnoses Fever of unknown origin Christopher Dick MD At[place], [place] Procedures Discharge Follow-up: PCP MILTON MENDEZ; 1 Week [address] [facility] 203 [id number] [place], [place] Phone: [phone] Phone: Fax: MRI/CAT Scan (STAT) Status Reason Specialty Diagnoses / Referred By Referred To Procedures Contact Contact New Request Diagnostic Diagnoses Cough Fever, unspecified fever cause Roberto Owens, Radiology Procedures CT ABDOMEN PELVIS WO CONTRAST [address] [place] [id number] Radiology Services (STAT) Status Reason Specialty Diagnoses / Referred By Referred To Procedures Contact Contact New Request Diagnostic Diagnoses Fever, unspecified fever cause Roberto Owens, Radiology Procedures XR CHEST [address] [place] [address] Reason for Visit Reason Comments Weakness Vomiting Auth/Cert Status Reason Specialty Diagnoses / Referred By Referred To Procedures Contact Contact Emergency Medicine [facility] Em ergency Dept [address] [place] [phone] Fax: Encounter Details Date Type Department Care Team Description 02/01/2020 - Emergency ADC Intensive Care Roberto Owens MD [address] [place] [address] [phone] Fever of unknown 02/02/2020 Unit Pam Schreiber MD [address] [place] [address]. [place] [address] [place] [address] [place] [address] Allergies Active Allergy Reactions Severity Noted Date Comments Morphine Hives, Itching 06/25/2013 Hydrocodone-Acetaminophen Hives, Itching 06/25/2013 documented as of this encounter (statuses as of 02/02/2020) Medications Medication Sig Dispensed Refills Start Date [...] intractability 6 (six) hours of vomiting not specified, as needed for presence of nausea not Nausea and specified, unspecified Vomiting (N/V). vomiting type levETIRAcetam 250 mg Take 250 mg by 0 Active tablet mouth 2 (two) times daily. lisinopril 10 mg tablet Take 10 mg by 0 Active mouth daily. acetaZOLAMIDE 500 mg Take 500 mg by 0 Active capsule mouth 2 (two) times daily. gabapentin 300 mg capsule Take by mouth. 0 Active Take 1/2 tablet by mouth nightly brinzolamide (AZOPT) 1 % 1 Drop 3 0 Active ophthalmic suspension (three) times drops daily. Brimonidine-Timolol Place in each 0 Active (COMBIGAN) 0.2-0.5 % eye. ophthalmic drops travoprost (TRAVATAN Z) 1 Drop at 0 Active 0.004 % ophthalmic bedtime. solution nitroglycerin 0.[address] 1 tablet 1 Bottle 1 01/04/2020 Active sublingual under the tabletIndications: tongue every 5 Coronary artery disease (five) minutes involving karuk coronary as needed for artery of karuk heart Chest pain. without angina pectoris atorvastatin 40 mg tablet Take 1 tablet 30 tablet 11 01/07/2020 Active by mouth at bedtime. ONDANSETRON HCL ORAL Take 8 mg by 0 Active mouth 3 (three) times daily. FAMOTIDINE ORAL Take 20 mg by 0 Active mouth daily. sevelamer 800 mg tablet Take 800 mg by 0 Active mouth 3 (three) times daily with meals. methocarbamoL 500 mg Take 500 mg by 0 Active tablet mouth 3 (three) times daily as needed (muscle spasms). ISOSORBIDE MONONITRATE Take 60 mg by 0 Active ORAL mouth daily. pantoprazole sodium Take 40 mg by 0 Active (PANTOPRAZOLE ORAL) mouth daily. folic acid/vit B complex Take 1 tablet 0 Active and C (NEPHRO-ARACELY ORAL) by mouth daily. calcium acetate 667 mg Tab Take 1 tablet 0 Active by mouth 3 (three) times daily with meals. gabapentin 300 mg capsule Take 300 mg by 0 Active mouth 3 (three) times daily. NOVOLOG U-100 INSULIN inject under 0 Active ASPART SC the skin. insulin inject 75 Units 0 Acti ve glargine,hum.rec.anlog under the skin (TOUJEO SOLOSTAR U-300 daily. INSULIN SC) levoFLOXacin 500 mg Take 0.5 5 tablet 0 02/02/2020 Active tabletIndications: Fever tablets by 020 of unknown origin mouth every 24 (twenty-four) hours for 10 days. lactobacillus acidophilus Take 1 tablet 40 tablet 0 02/02/2020 Active 25 million cell -100 mg by mouth 4 020 captabIndications: Fever (four) times of unknown origin daily for 10 days. insulin NPH hum/reg inject 80 Units 0 10/27 Discontinued insulin hm (NOVOLIN 70/30 under the skin 020 SC) 2 (two) times daily. SIMVASTATIN ORAL Take 40 mg by 0 Discontinued mouth every 020 evening. documented as of this encounter (statuses as of 02/02/2020) Active Problems Problem Noted Date Fever of unknown origin 02/01/2020 Obesity (BMI 30-39.9) 02/01/2020 Seizures 05/26/2019 History of CVA (cerebrovascular accident) 05/26/2019 History of MS (myocardial infarction) 05/26/2019 Encounter for screening colonoscopy 05/26/2019 Coronary artery disease involving karuk coronary tho ry of karuk heart 05/26/2019 without angina pectoris Cirrhosis of [...] as of this encounter (statuses as of 02/02/2020) Immunizations Name Administration Dates Next Due TDAP [...] have you been in contact with Yes 02/01/2020 12:56 AM CDT someone who was confirmed or suspected to have Coronavirus / COVID-19? documented as of this encounter Last Filed Vital Signs Vital Sign Reading Time Taken Comments Blood Pressure 105/63 02/02/2020 12:11 PM CDT Pulse 57 02/02/2020 9:00 AM CDT Temperature 36.4 C (97.5 F) 02/02/2020 12:11 PM CDT Respiratory Rate 17 02/02/2020 9:00 AM CDT Oxygen Saturation 98% 02/02/2020 9:00 AM CDT Inhaled Oxygen Concentration - - Weight 106 kg (233 lb 11 oz) 02/01/2020 7:48 PM CDT Height 171 cm (5' 7.32") 02/01/2020 4:26 AM CDT Body Mass Index 36.25 02/01/2020 4:26 AM CDT documented in this encounter Discharge Instructions AppointmentsMeKaylene mckeon LMSW - 02/02/2020 1:57 PM CDTMonday January 12:30pm THIS APPOINTMENT IS VIA TELEHEALTH- Dr. Ceja will call your cell phone at your designated appointment time Hospital Follow-up with Dr. Steve Clintoneco AttachmentsThe following attachments cannot be sent through Care Everywhere. Chronic Kidney Disease, Diet for (Gabonese)Febrile Illness, Uncertain Cause (Adult) (Gabonese)documented in this encounter H&P Notes Pam Schreiber MD - 02/01/2020 3:29 AM CDT MEDICINE ADC ADMIT H&P Date of Service: 02/01/2020 CHIEF COMPLAINT: fever, nausea, vomiting, cough, fatigue History of Present Illness 54 year-old male with multiple comorbidities including CAD, cirrhosis, ESRD, Stage III, CVA, HTN, nephrolithiasis, HLD, PAD, DM, gastroparesis who presents to the ED secondary to productive cough (whitish sputum) , fatigue, weakness, nausea, and vomiting. Patient is confused had to rely on 's account. Yesterday, stated that patient was not alert and rather confused since yesterday 3 am until afternoon. In addition, notes that he had increased diarrhea, which is worse than normal. She denies patient having any recent antibiotics. - chest pain - shortness of breath PAST MEDICAL HISTORY Past Medical History: Diagnosis [...] Laterality Date JOINT SURGERY Lt ACL - -98" OTHER Lower GI STENT PLACEMENT (SHX) Family History Problem Relation Age of Onset Heart Mother Diabetes Mother Stroke Mother ALLERGIES Allergies Allergen Reactions Morphine Hives and Itching Vicodin [Hydrocodone-Acetaminophen] Hives and Itching MEDICATIONS No current facility-administered medications on file prior to encounter. Current Outpatient Medications on File Prior to Encounter Medication Sig Dispense Refill atorvastatin 40 mg tablet Take 1 tablet by mouth at bedtime. 30 tablet 11 nitroglycerin 0.[address] 1 tablet under the tongue every 5 (five) minutes as needed for Chest pain. 1 Bottle 1 acetaZOLAMIDE 500 mg capsule Take 500 mg by mouth 2 (two) times daily. Brimonidine-Timolol (COMBIGAN) 0.2-0.5 % ophthalmic drops Place in each eye. brinzolamide (AZOPT) 1 % ophthalmic suspension drops 1 Drop 3 (three) times daily. gabapentin 300 mg capsule Take 300 mg by mouth. Indications: take 3 capsules BID insulin NPH hum/reg insulin hm (NOVOLIN 70/30 SC) inject 80 Units under the skin 2 (two) times daily. levETIRAcetam 250 mg tablet Take 250 mg by mouth 2 (two) times daily. lisinopril 10 mg tablet Take 10 mg by mouth daily. travoprost (TRAVATAN Z) 0.004 % ophthalmic solution 1 Drop at bedtime. proMETHazine 25 mg tablet Take 1 tablet by mouth every 6 (six) hours as needed for Nausea and Vomiting (N/V). 20 tablet 0 ATENOLOL 50 mg tablet TAKE 1 TABLET BY MOUTH TWICE A DAY. (Patient taking differently: 50 mg daily.) 60 tablet 0 CITALOPRAM 20 mg tablet TAKE 1 TABLET BY MOUTH EVERY DAY. 30 tablet 3 TRAMADOL 50 mg tablet TAKE ONE TABLET BY MOUTH EVERY 6 HOURS NEEDED FOR PAIN (SCALE 4-6) 120tablet 0 SOCIAL HISTORY Social History Socioeconomic History Marital [...] file Gets together: Not on file Attends evangelical service: Not on file Active member of [...] home with and daughter, daughter and son-in-law Review of Systems Constitutional: Positive for fatigue. Negative for activity change, appetite change, chills, diaphoresis, fever and unexpected weight change. HENT: Positive for congestion and rhinorrhea. Negative for dental problem, drooling, ear discharge, ear pain, facial swelling, hearing loss, mouth sores, nosebleeds, postnasal drip, sinus pressure, sneezing, sore throat, tinnitus, trouble swallowing and voice change. Eyes: Negative. Respiratory: Positive for cough. Negative for apnea, choking, chest tightness, shortness of breath, wheezing and stridor. Breasts: Negative. Cardiovascular: Negative. Gastrointestinal: Positive for diarrhea, nausea and vomiting. Negative for abdominal distention, abdominal pain, anal bleeding, blood in stool, constipation and rectal pain. Genitourinary: Negative. Musculoskeletal: Negative for neck pain and neck stiffness. PHYSICAL EXAMINATION Vitals: 02/01/20 0159 02/01/20 0229 02/01/20 0247 02/01/20 0300 BP: (!) 140/78 136/71 135/76 (!) 153/75 Pulse: 89 88 87 Resp: Temp: 38.6 C (101.5 F) TempSrc: Oral SpO2: 92% 93% 95% 93% Weight: Height: Physical Exam Constitutional: He appears well-developed and well-nourished. No distress. HENT: Head: Normocephalic and atraumatic. Right Ear: External ear normal. Left Ear: External ear normal. Eyes: Pupils are equal, round, and reactive to light. Conjunctivae and EOM are normal. Right eye exhibits discharge. Left eye exhibits no discharge. No scleral icterus. LABS - reviewed pertinent labs as below: Reviewed IMAGING - reviewed, pertinent results as below: PROCEDURE: XR CHEST 1 VW CLINICAL INDICATION: cough COMPARISON: Chest x-ray dated 07/10/2018 FINDINGS: The lungs are clear. No pleural effusion or pneumothorax is seen. The heart is normal in size. Right IJ double lumen catheter terminates in the right atrium. No acute bony abnormality. IMPRESSION No acute intrathoracic abnormality. Preliminary Report Dictated by Resident: Lorenza Watt PROCEDURE: XR CHEST 1 VW CLINICAL INDICATION: cough COMPARISON: Chest x-ray dated 07/10/2018 FINDINGS: The lungs are clear. No pleural effusion or pneumothorax is seen. The heart is normal in size. Right IJ double lumen catheter terminates in the right atrium. No acute bony abnormality. IMPRESSION No acute intrathoracic abnormality. Preliminary Report Dictated by Resident: Lorenza Watt ASSESSMENT/PLAN Wero Kwong is a 54 year old male with PMH as listed above, admitted to the hospital with: 1. Fever of unknown origin: Could be due to gastroenteritis versus chronic cough -- Will hold off on antibiotics due to normal wbc -- Procalcitonin is pending -- Will order for stool studies -- Supportive care (eg, antitussive) -- Molecular PCR is pending 2. Metabolic encephalopathy: mentation appears to be waxing and waning. -- Will check ammonia level -- Will control fever as this cause confusion 3. HTN: controlled -- Will resume outpatient antihypertensive agent 4. Diabetes: uncontrolled -- Will resume outpatient glycemic agent -- Will resume insulin sliding scale 5. Current smoker: spoke for greater than 3 minutes about smoking cessation. At this time, patient would like smoking cessation therapy. Have ordered it. Prophylaxis: DVT- heparin Code Status: addressed: FC documented in this encounter Consult Notes Alexandre Peerz MD - 02/02/2020 11:53 AM CDTAssociated Order(s): CONSULT INFECTIOUS DISEASE This is a 54-year-old male with significant history of coronary artery disease cirrhosis of the liver chronic kidney disease on dialysis, stroke hypertension, heart attack, kidney stones, neuropathy, peripheral arterial disease and type 2 diabetes mellitus. Patient is here with fever with the elevatedpro-calcitonin. Patient denies any headache nausea vomiting chest pain abdominal pain constipation diarrhea feeling much better today and wants to go home. Cultures are negative Past Medical History: Diagnosis Date Anxiety CAD [...] file Gets together: Not on file Attends evangelical service: Not on file Active member of [...] home with and daughter, daughter and son-in-law Current Facility-Administered Medications: melatonin (MELATIN) tablet 3 mg, 3 mg, Oral, QHS, Pam Schreiber MD acetaZOLAMIDE (DIAMOX) tablet 500 mg, 500 mg, Oral, BID, Christopher Dick MD, 500 mg at 02/02/20 0917 atenoloL (TENORMIN) tablet 50 mg, 50 mg, Oral, BID, Christpoher Dick MD, 50 mg at 02/02/20 0917 atorvastatin (LIPITOR) tablet 40 mg, 40 mg, Oral, QHS, Christopher Dick MD, 40 mg at 02/01/201 citalopram (CELEXA) tablet 20 mg, 20 mg, Oral, DAILY, Christopher Dick MD, 20 mg at 02/02/2017 dextrose 50 % in water (D50W) injection 25 mL, 25 mL, Slow IV Push, PRN, Pam Schreiber MD glucagon (GLUCAGEN DIAGNOSTIC KIT) injection 1 mg, 1 mg, Intramuscular, PRN, Pam Schreiber MD guaiFENesin 100 mg/5 mL solution 200 mg, 200 mg, Oral, Q4HPRN, Pam Schreiber MD, 200 mg at 02/02/20 0129 heparin (PF) 1,000 unit/mL injection 2,000 Units, 2,000 Units, Slow IV Push, SEE-INSTRUCTIONS, Steve Ceja DO, 3,200 Units at 02/01/20 1925 heparin (porcine) injection 5,000 Units, 5,000 Units, Subcutaneous, Q8H, Pam Schreiber MD, 5,000 Units at 02/02/20 0918 insulin glargine (LANTUS U-100) injection 75 Units, 75 Units, Subcutaneous, DAILY, Christopher Dick MD, 75 Units at 02/02/20 0932 isosorbide mononitrate (IMDUR) 24 hr tablet 60 mg, 60 mg, Oral, DAILY, Christopher Dick MD, 60 mg at 02/02/20 0917 levETIRAcetam (KEPPRA) tablet 250 mg, 250 mg, Oral, BID, Christopher Dick MD, 250 mg at 02/02/20 0916 lisinopriL (PRINIVIL,ZESTRIL) tablet 10 mg, 10 mg, Oral, DAILY, Christopher Dick MD, 10 mg at 02/02/20 0917 nicotine (NICODERM) 21 mg/24 hr patch 1 Patch, 1 Patch, Topical, Q24H, Pam Schreiber MD, 1 Patch at 02/02/20 0917 ondansetron (ZOFRAN (PF)) injection 4 mg, 4 mg, Slow IV Push, Q6HPRN, Pam Schreiber MD pantoprazole (PROTONIX) EC tablet 40 mg, 40 mg, Oral, DAILY, Christopher Dick MD, 40 mg at 02/02/20916 sevelamer (RENVELA) tablet 800 mg, 800 mg, Oral, TID MEALS, Christopher Dick MD, 800 mg at 02/02/20916 Sliding Scale Insulin-Regular + Fsbg Testing, , Subcutaneous, AC+HS, Pam Schreiber MD, 2 Units at 02/02/20916 vitamin b complex-vitamin c-folic acid (NEPHRO-ARACELY) 0.8 mg tablet 1 tablet, 1 tablet, Oral, DAILY, Christopher Dick MD Allergies Allergen Reactions Morphine Hives and Itching Vicodin [Hydrocodone-Acetaminophen] Hives and Itching Review of system: 10 point review was performed Physical exam: Patient sitting in chair not in any acute cardiopulmonary distress Vital signs reviewed HEENT unremarkable Neck: Supple, no nephropathy Lungs: Basal crackles Heart: S1-S2 regular Abdomen: Soft, bowel sound present Extremity: 1+ edema CBC WBC (10*3/L) Date Value 02/02/2020 4.86 RBC (10*6/L) Date Value 02/02/2020 3.50 (L) PLT (10*3/L) Date Value 02/02/2020 114 (L) HGB (g/dL) Date Value 02/02/2020 11.6 (L) HCT (%) Date Value 02/02/2020 33.5 (L) CMP NA (mmol/L) Date Value 02/02/2020 134 (L) K (mmol/L) Date Value 02/02/2020 3.7 CALCIUM (mg/dL) Date Value 02/02/2020 8.2 (L) CL (mmol/L) Date Value 02/02/2020 102 BUN (mg/dL) Date Value 02/02/2020 31 (H) CREATININE (mg/dL) Date Value 02/02/2020 4.18 (H) GLUCOSE (mg/dL) Date Value 02/02/2020 228 (H) CO2 TOTAL (mmol/L) Date Value 02/02/2020 24 ALBUMIN (g/dL) Date Value 01/04/2020 3.3 (L) T PROTEIN (g/dL) Date Value 01/04/2020 6.2 (L) TOTAL BILI (mg/dL) Date Value 01/04/2020 0.5 BILI UNCON (mg/dL) Date Value 06/07/2015 0.5 BILI CONJ (mg/dL) Date Value 06/07/2015 0.0 ALT(SGPT) (U/L) Date Value 07/10/2017 40 ALTv (U/L) Date Value 01/04/2020 28 AST(SGOT) (U/L) Date Value 01/04/2020 30 ALK PHOS (U/L) Date Value 01/04/2020 168 (H) CT scan and chest x-ray negative Blood cultures pending Assessment and plan: Patient with the fever which has subsided after one episode and patient is doing better his pro-calcitonin was elevated cultures are negative up-to-date Chest x-ray and CT scan is negative Patient on hemodialysis, diabetes mellitus and anemia Viral syndrome versus noninfectious Will recommend Levaquin 250 mg daily for [address] Christopher Dick for consult Steve Burch DO - 02/01/2020 5:45 PM CDTAssociated Order(s): CONSULT NEPHROLOGY Nephrology Consult Admit Date: 02/01/2020 PCP: Milton Mendez Referring Physician: Dr. Schreiber Reason for Referral: ESRD Admitting Dx: FEVER CHIEF COMPLAINT: Productive cough with fever HISTORY OF PRESENT ILLNESS: Wero Kwong is a 54 year old male that presented to the ER with a moderate, progressive productive cough with an associated fever in the setting of cigarettes. 54 year-old male with multiple comorbidities including CAD, cirrhosis, ESRD, CVA, HTN, nephrolithiasis, HLD, PAD, DM, gastroparesis who presents to the ED secondary to productive cough (whitish sputum), fatigue, weakness, nausea, and vomiting. ROS as stated above. All other ROS negative. Temp: [35.9 C (96.6 F)-39.2 C (102.5 F)] Heart Rate (monitor): [61-91] Pulse: [61-95] Resp: [9-28] BP: (100-176)/(59-157) MAP (mmHg): [71-116] PE: Gen: NAD HEENT: NCAT. MMM. Neck: Supple. No LAD. Lungs: CTA CVS: RRR Abd: Soft. NT. +BS Ext: No C/C. LE Edema 1-2+ Skin: No rash Psych: AAO Neuro: Normal speech ASSESSMENT/PLAN Wero Kwong is a 54 year old male with PMH as listed above, admitted to the hospital with: The primary encounter diagnosis was Cough. A diagnosis of Fever, unspecified fever cause was also pertinent to this visit. A/ ESRD on HD. Hyperkalemia HTN with CKD/ CHF. Diastolic CHF, A/C. DM II with CKD, Polyneuropathy and Gastroparesis. CAD/ PAD Anemia in CKD. ZACH/ Secondary HyperPTH. Nicotine dependence P/ Continue current POC and Medications other than changes listed below. Please see chart and orders for complete details. Acute HD as ordered. Seen and examined on HD. Restart home medications as indicated. Renal diet. No NSAIDs. AM labs. Daily weight. Thank you kindly for the consultation. Vitals: 02/01/20 1900 02/01/20 19102/01/20 1930 02/01/201947 BP: (!) 163/95 (!) 170/108 119/70 (!) 160/98 BP Location: Right arm Pulse: 88 83 86 91 Resp: 18 Temp: 35.9 C (96.7 F) TempSrc: Axillary SpO2: Weight: 106 kg (233 lb 11 oz) Height: LABS - reviewed in the chart: CBC BMP PT/INR WBC (10*3/L) Date Value 02/01/2020 5.70 NA (mmol/L) Date Value 02/01/2020 130 (L) No results found for: PT RBC (10*6/L) Date Value 02/01/2020 3.76 (L) K (mmol/L) Date Value 02/01/2020 4.8 INR (no units) Date Value 05/14/2019 0.9 PLT (10*3/L) Date Value 02/01/2020 113 (L) CALCIUM (mg/dL) Date Value 02/01/2020 8.1 (L) HGB (g/dL) Date Value 02/01/2020 12.6 CL (mmol/L) Date Value 02/01/2020 102 aPTT HCT (%) Date Value 02/01/2020 36.5 (L) BUN (mg/dL) Date Value 02/01/2020 49 (H) APTT Patient (Seconds) Date Value 05/14/2019 28 CREATININE (mg/dL) Date Value 02/01/2020 5.25 (H) IMAGING - reviewed in the chart: Hospital Encounter on 02/01/20 CT ABDOMEN PELVIS WO CONTRAST Narrative EXAM: CT ABDOMEN AND PELVIS WITHOUT CONTRAST HISTORY: Abd distension COMPARISON: CT of the abdomen dated 06/07/2015. TECHNIQUE AND FINDINGS: Contiguous axial imaging from the level of the lung bases through the pubic symphysis was performed without the intravenous administration of contrast. Coronal and sagittal reconstructions were obtained. Auto mA and/or iterative reconstruction were used to reduce radiation dose. FINDINGS: LOWER THORAX: The lungs bases are clear. Short sliding hiatal hernia suspected. LIVER: The liver is enlarged at 19.9 cm. No focal hepatic lesions. Normal liver contour. GALLBLADDER AND BILIARY TREE: Cholecystectomy. SPLEEN: No splenomegaly. A small splenule is seen. PANCREAS: No ductal dilation or masses. ADRENAL GLANDS: No adrenal nodules. KIDNEYS: No hydronephrosis, stones, or masses. Bilateral renal pelvis hyperdensities, likely vascular calcifications. PERITONEUM AND RETROPERITONEUM: No free air or fluid. LYMPH NODES: No lymphadenopathy. GI TRACT: No dilation or wall thickening. Sigmoid diverticulosis. Normal appendix. PELVIS/BLADDER: Unremarkable. VESSELS: Unremarkable. BONES AND SOFT TISSUES: No suspicious lytic or sclerotic bony lesions. Impression No acute intra-abdominal findings. Preliminary Report Dictated by Resident: Darling Nguyen MD., have reviewed this study and agree with the above report. XR CHEST 1 VW Narrative PROCEDURE: XR CHEST 1 VW CLINICAL INDICATION: cough COMPARISON: Chest x-ray dated 07/10/2018 FINDINGS: Poor inspiratory effort trauma the patient resulting in 2 increased transverse diameter of the cardiac silhouette and dilated central pulmonary arteries. The lungs are clear. No pleural effusion or pneumothorax is seen. The heart is normal in size. Right IJ double lumen catheter terminates in the right atrium. No acute bony abnormality. Impression No acute intrathoracic abnormality. Preliminary Report Dictated by Resident: Lorenza Watt I, Darling Mart MD., have reviewed this study and agree with the above report. PAST MEDICAL HISTORY Past Medical History: Diagnosis [...] " OTHER Lower GI STENT PLACEMENT (SHX) ALLERGIES Allergies Allergen Reactions Morphine Hives and Itching Vicodin [Hydrocodone-Acetaminophen] Hives and Itching MEDICATIONS reviewed in the chart. Current Facility-Administered Medications Medication Dose Route Frequency Last Rate Last Dose acetaZOLAMIDE (DIAMOX) tablet 500 mg 500 mg Oral BID 500 mg at 02/01/201950 atenoloL (TENORMIN) tablet 50 mg 50 mg Oral BID 50 mg at 02/01/201950 atorvastatin (LIPITOR) tablet 40 mg 40 mg Oral QHS 40 mg at 02/01/201950 [START ON 02/02/2020] citalopram (CELEXA) tablet 20 mg 20 mg Oral DAILY dextrose 50 % in water (D50W) injection 25 mL 25 mL Slow IV Push PRN glucagon (GLUCAGEN DIAGNOSTIC KIT) injection 1 mg 1 mg Intramuscular PRN guaiFENesin 100 mg/5 mL solution 200 mg 200 mg Oral Q4HPRN 200 mg at 02/01/201950 heparin (PF) 1,000 unit/mL injection 2,000 Units 2,000 Units Slow IV Push SEE-INSTRUCTIONS 3,200 Units at 02/01/201924 heparin (porcine) injection 5,000 Units 5,000 Units Subcutaneous Q8H Stopped at 02/01/20 1400 [START ON 02/02/2020] insulin glargine (LANTUS U-100) injection 75 Units 75 Units Subcutaneous DAILY [START ON 02/02/2020] isosorbide mononitrate (IMDUR) 24 hr tablet 60 mg 60 mg Oral DAILY levETIRAcetam (KEPPRA) tablet 250 mg 250 mg Oral BID 250 mg at 02/01/201950 levoFLOXacin in D5W (LEVAQUIN) 750 mg/150 mL Piggyback 750 mg 750 mg IV Piggyback ONCE 750 mgat 02/01/20 195 [START ON 02/02/2020] lisinopriL (PRINIVIL,ZESTRIL) tablet 10 mg 10 mg Oral DAILY NaCl 0.9% (NS) injection 10 mL 10 mL Slow IV Push DIALYSIS ONCE - PT ROOM nicotine (NICODERM) 21 mg/24 hr patch 1 Patch 1 Patch Topical Q24H 1 Patch at 02/01/20 0804 ondansetron (ZOFRAN (PF)) injection 4 mg 4 mg Slow IV Push Q6HPRN [START ON 02/02/2020] pantoprazole (PROTONIX) EC tablet 40 mg 40 mg Oral DAILY sevelamer (RENVELA) tablet 800 mg 800 mg Oral TID MEALS Stopped at 02/01/20 1700 Sliding Scale Insulin-Regular + Fsbg Testing Subcutaneous AC+HS Stopped at 02/01/20 1630 [START ON 02/02/2020] vitamin b complex-vitamin c-folic acid (NEPHRO-ARACELY) 0.8 mg tablet 1 tablet 1 tablet Oral DAILY SOCIAL HISTORY Social History Socioeconomic History Marital [...] file Gets together: Not on file Attends evangelical service: Not on file Active member of [...] home with and daughter, daughter and son-in-law FAMILY History Family History Problem Relation Age of Onset Heart Mother Diabetes Mother Stroke Mother documented in this encounter ED Notes Aminata Foy RN - 02/01/2020 12:56 AM CDTPatient with cough for 5-6 weeks the last several days he has had increased cough, fatigue, weakness, vomiting. Roberto Kelley MD - 02/01/2020 12:47 AM CDT [facility] EMERGENCY DEPARTMENT ENCOUNTER Demographics Patient Name: Wero Kwong Date of : 1965 54 year old Treatment Room: [place] [address] Primary Care Physician: Milton Mendez Pre Hospital Care Patient Escorted by: Self [9] Mode of Arrival: EMS - [place] [51] EMS Treatment Prior to ED Arrival: FUR WEIGHER treatment: Saline lock Chief complaint Chief Complaint Patient presents with Weakness Vomiting History of present illness HPI 54-year-old man with past medical history significant for CAD, end-stage renal disease on hemodialysis, CVA, hypertension, obesity, and type 2 diabetes comes to the emergency department for evaluation of increased cough fatigue, weakness and vomiting. Patient denies chest pain or shortness of breath at this time refers mild cough occasionally. Noted shivering in the emergency department and found to have a temperature of 39.2 Celsius upon arrival. Past Medical and Social History Past Medical History: Diagnosis Date Anxiety CAD (coronary artery disease) Cirrhosis CKD (chronic kidney disease), stage III CVA (cerebral vascular accident) 01/2018 Essential hypertension, benign Heart attack Kidney stones Left knee pain 07/06/2015 Neuropathy Other and unspecified hyperlipidemia PAD (peripheral artery disease) Type II or unspecified type diabetes mellitus without mention of complication, not stated as uncontrolled Social History Tobacco Use Smoking status: Current Every Day Smoker Packs/day: 0.33 Years: 7.00 Pack years: 2.31 Types: Cigarettes Smokeless tobacco: Never Used Substance Use Topics Alcohol use: Not Currently Alcohol/week: 0.0 standard drinks Frequency: Never Drug use: No Past Surgical History Past Surgical History: Procedure Laterality Date JOINT SURGERY Lt ACL - 98" OTHER Lower GI STENT PLACEMENT (SHX) Medications Medications acetaminophen (TYLENOL) tablet 650 mg (650 mg Oral Given 02/01/20 0122) cefTRIAXone (ROCEPHIN) 1,000 mg in NaCl 0.9% (NS) 50 mL MINI-BAG (1,000 mg IV Piggyback Given 02/01/20 0256) ibuprofen (IBU) tablet 600 mg (600 mg Oral Given 02/01/20 0324) Allergies Allergies Allergen Reactions Morphine Hives and Itching Vicodin [Hydrocodone-Acetaminophen] Hives and Itching Review of Systems Review of Systems Constitutional: Positive for fever. HENT: Negative. Eyes: Negative. Respiratory: Positive for cough. Breasts: Negative. Cardiovascular: Negative. Gastrointestinal: Positive for vomiting. Genitourinary: Negative. Musculoskeletal: Negative. Skin: Negative. Neurological: Negative. Psychiatric/Behavioral: Negative. Endocrine: Endocrine negative Physical Exam BP (!) 153/75 | Pulse 87 | Temp 38.6 C (101.5 F) (Oral) | Resp 18 | Ht 1.727 m (5' 8") | Wt94.8 kg (209 lb) | SpO2 93% | BMI 31.78 kg/m Physical Exam Vitals signs and nursing note reviewed. Constitutional: General: He is in acute distress. Appearance: He is well-developed. He is obese. He is not ill-appearing, toxic-appearing or diaphoretic. HENT: Head: Normocephalic and atraumatic. Right Ear: Ear canal and external ear normal. There is no impacted cerumen. Left Ear: Ear canal and external ear normal. There is no impacted cerumen. Nose: Nose normal. No congestion or rhinorrhea. Mouth/Throat: Pharynx: No oropharyngeal exudate or posterior oropharyngeal erythema. Eyes: General: Right eye: No discharge. Left eye: No discharge. Conjunctiva/sclera: Conjunctivae normal. Pupils: Pupils are equal, round, and reactive to light. Neck: Musculoskeletal: Normal range of motion and neck supple. No neck rigidity or muscular tenderness. Cardiovascular: Rate and Rhythm: Regular rhythm. Tachycardia present. Heart sounds: Normal heart sounds. Pulmonary: Effort: Pulmonary effort is normal. No respiratory distress. Breath sounds: Normal breath sounds. No stridor. No wheezing or rhonchi. Abdominal: General: Bowel sounds are normal. There is no distension. Palpations: Abdomen is soft. There is no mass. Tenderness: There is no abdominal tenderness. Hernia: No hernia is present. Musculoskeletal: Normal range of motion. General: No swelling, tenderness, deformity or signs of injury. Skin: General: Skin is warm and dry. Capillary Refill: Capillary refill takes less than 2 seconds. Coloration: Skin is not jaundiced or pale. Findings: No bruising or erythema. Neurological: General: No focal deficit present. Mental Status: He is alert and oriented to person, place, and time. Mental status is at baseline. Cranial Nerves: No cranial nerve deficit. Sensory: No sensory deficit. Motor: No weakness. Coordination: Coordination normal. Psychiatric: Mood and Affect: Mood normal. Behavior: Behavior normal. Thought Content: Thought content normal. Judgment: Judgment normal. Labs and Studies Recent Results (from the past 24 hour(s)) CBC WITH DIFF Collection Time: 02/01/20 1:03 AM Result Value Ref Range WBC 5.70 4.20 - 10.70 10*3/L RBC 3.76 (L) 4.26 - 5.52 10*6/L HGB 12.6 12.2 - 16.4 g/dL HCT 36.5 (L) 38.4 - 49.3 % MCV 97.1 (H) 81.7 - 95.6 fL MCH 33.5 (H) 26.1 - 32.7 pg MCHC 34.5 31.2 - 35.0 g/dL RDW-SD 46.9 38.5 - 51.6 fL RDW-CV 13.1 12.1 - 15.4 % PLT 113 (L) 150 - 328 10*3/L MPV 13.6 (H) 9.8 - 13.0 fL IPF % 12.4 (H) 1.2 - 10.7 % NRBC/100 WBC 0.0 0.0 - 10.0 /100 WBCs NRBC x10^3 <0.01 10*3/L GRAN MAT (NEUT) % 66.7 % IMM GRAN % 1.40 % LYMPH % 21.6 % MONO % 7.2 % EOS % 2.6 % BASO % 0.5 % GRAN MAT x10^3(ANC) 3.80 1.99 - 6.95 10*3/uL IMM GRAN x10^3 0.08 (H) 0.00 - 0.06 10*3/uL LYMPH x10^3 1.23 1.09 - 3.23 10*3/uL MONO x10^3 0.41 0.36 - 1.02 10*3/uL EOS x10^3 0.15 0.06 - 0.53 10*3/uL BASO x10^3 0.03 0.01 - 0.09 10*3/uL BASIC METABOLIC PANEL (NA, K, CL, CO2, GLUCOSE, BUN, CREATININE, CA) Collection Time: 02/01/20 1:03 AM Result Value Ref Range NA 130 (L) 135 - 145 mmol/L K 4.8 3.5 - 5.0 mmol/L CL 102 98 - 108 mmol/L CO2 TOTAL 19 (L) 23 - 31 mmol/L AGAP 9 2 - 16 BUN 49 (H) 7 - 23 mg/dL GLUCOSE 432 (H) 70 - 110 mg/dL CREATININE 5.25 (H) 0.60 - 1.25 mg/dL CALCIUM 8.1 (L) 8.6 - 10.6 mg/dL eGFR Calculation (Non-) 11.6 mL/min/1.73m2 eGFR Calculation () 14.0 mL/min/1.73m2 COVID-19 (ID NOW RAPID TESTING) Collection Time: 02/01/20 1:03 AM Specimen: NASOPHARYNGEAL SWAB Result Value Ref Range SARS-CoV-2 Rapid ID NOW Not Detected Not Detected URINALYSIS Collection Time: 02/01/20 1:18 AM Result Value Ref Range APPEARANCE Cloudy (A) Clear COLOR Yellow Yellow PH 5.0 4.8 - 8.0 SP GRAVITY 1.023 1.003 - 1.030 GLU U QUAL 500 mg/dL (A) Normal BLOOD 1+ (A) Negative KETONES Negative Negative PROTEIN 500 mg/dL (A) Negative UROBILIN Normal Normal BILIRUBIN Negative Negative NITRITE Negative Negative LEUK KATHERINE Negative Negative RBC/HPF 4 (H) 0 - 3 HPF WBC/HPF 3 0 - 5 HPF BACTERIA Many (A) Negative MUCOUS Slight (A) Negative LPF AMORPHOUS Few (A) Rare HPF SQ EPITH 1 HPF SPERM <1 <=1 HPF TRANS EPI <1 <=1 HPF Hospital Encounter on 02/01/20 CT ABDOMEN PELVIS WO CONTRAST Narrative EXAM: CT ABDOMEN AND PELVIS WITHOUT CONTRAST HISTORY: Abd distension COMPARISON: CT of the abdomen dated 06/07/2015. TECHNIQUE AND FINDINGS: Contiguous axial imaging from the level of the lung bases through the pubic symphysis was performed without the intravenous administration of contrast. Coronal and sagittal reconstructions were obtained. Auto mA and/or iterative reconstruction were used to reduce radiation dose. FINDINGS: LOWER THORAX: The lungs bases are clear. LIVER: The liver is enlarged at 19.9 cm. No focal hepatic lesions. Normal liver contour. GALLBLADDER AND BILIARY TREE: Cholecystectomy. No gallbladder wall thickening. SPLEEN: No splenomegaly. A small splenule is seen. PANCREAS: No ductal dilation or masses. ADRENAL GLANDS: No adrenal nodules. KIDNEYS: No hydronephrosis, stones, or masses. Bilateral renal pelvis hyperdensities, likely vascular calcifications. PERITONEUM AND RETROPERITONEUM: No free air or fluid. LYMPH NODES: No lymphadenopathy. GI TRACT: No dilation or wall thickening. Sigmoid diverticulosis. PELVIS/BLADDER: Unremarkable. VESSELS: Unremarkable. BONES AND SOFT TISSUES: No suspicious lytic or sclerotic bony lesions. Impression No acute intra-abdominal findings. Preliminary Report Dictated by Resident: Lorenza Watt XR CHEST 1 VW Narrative PROCEDURE: XR CHEST 1 VW CLINICAL INDICATION: cough COMPARISON: Chest x-ray dated 07/10/2018 FINDINGS: The lungs are clear. No pleural effusion or pneumothorax is seen. The heart is normal in size. Right IJ double lumen catheter terminates in the right atrium. No acute bony abnormality. Impression No acute intrathoracic abnormality. Preliminary Report Dictated by Resident: Lorenza Watt Orders and Treatments Orders Placed This Encounter Procedures XR CHEST [address] ABDOMEN PELVIS WO CONTRAST CBC WITH DIFF BASIC METABOLIC PANEL (NA, K, CL, CO2, GLUCOSE, BUN, CREATININE, CA) COVID-19 (ID NOW RAPID TESTING) URINALYSIS BLOOD CULTURE SCREEN BLOOD CULTURE SCREEN URINE CULTURE Lactic Acid Whole Blood Lactic Acid Whole Blood CORONAVIRUS COVID-19 TESTING Orders Placed This Encounter Medications acetaminophen (TYLENOL) tablet 650 mg cefTRIAXone (ROCEPHIN) 1,000 mg in NaCl 0.9% (NS) 50 mL MINI-BAG ibuprofen (IBU) tablet 600 mg Patient's Medications START taking these medications No medications on file CONTINUE taking these medications which have NOT CHANGED ACETAZOLAMIDE 500 MG CAPSULE Take 500 mg by mouth 2 (two) times daily. ATENOLOL 50 MG TABLET TAKE 1 TABLET BY MOUTH TWICE A DAY. ATORVASTATIN 40 MG TABLET Take 1 tablet by mouth at bedtime. BRIMONIDINE-TIMOLOL (COMBIGAN) 0.2-0.5 % OPHTHALMIC DROPS Place [...] TABLET Take 10 mg by mouth daily. NITROGLYCERIN 0.[address] 1 tablet under the tongue every 5 (five) minutes as needed for Chest pain. PROMETHAZINE 25 MG TABLET Take 1 tablet by mouth every 6 (six) hours as needed for Nausea and Vomiting (N/V). TRAMADOL 50 MG TABLET TAKE ONE TABLET BY MOUTH EVERY 6 HOURS NEEDED FOR PAIN (SCALE 4-6) TRAVOPROST (TRAVATAN Z) 0.004 % OPHTHALMIC SOLUTION 1 Drop at bedtime. START taking Modified Medications as Prescribed No medications on file STOP taking these medications No medications on file Procedures Procedures MDM & Notes Coding Patient was evaluated for the complaint of Weakness and Vomiting ED Course as of Jan 31 329 Tue Feb 01, 2020 0231 54-year-old man comes to the emergency department complaining of fever, weakness, vomiting. Febrile upon arrival, labs showing possible UTI. Pending CT scan of the abdomen and likely admission forfurther evaluation of fever. [JJ] ED Course User Index [JJ] Roberto Owens MD History, physical exam findings, results of visit, differential diagnosis, medication regimens and plan of future care have been considered. Additional MDM may be found in the ED course. Differential diagnosis considered and final disposition made based on information gathered during evaluation and may not be completely ruled out. Vital signs were rechecked before final disposition and determined to be stable. Diagnoses ICD-10-CM ICD-9-CM 1. Cough R05 786.2 2. Fever, unspecified fever cause R50.9 780.60 Disposition and Condition ED Disposition ED Disposition Condition Comment Admit - Observation Is this patient COVID positive or a patient under investigation (PUI)?: Yes Treatment Team: [facility] [[id number]] Primary reason for admission: Fever of unknown origin [[id number]] Is (or was) this a planned re-admission?: No Roberto Owens MD, FACEP, FAAEM [facility] #[id number] documented in this encounter Miscellaneous Notes Nursing Note - Kevin Roger RN - 02/01/2020 7:52 PM CDTHEMODIALYSIS NURSING NOTE Number Hours: 3.0 hours Bath: 2K 3 Calcium (standard dialysate) Heparin: limited heparin (3000 units total) Access: right Catheter permanent subclavian Net UF: 2800ml Weight: pre 108.5 kg, post 106 kg Post BP 160/98 Post Pulse 91 Antibiotics/Medications Given: none Complications/Events of Treatment: none, patient tolerated treatment, hand over report given to primary nurse Ravindra Youngblood RN Handoff report completed and attached to Patient Chart Mode of Transport Back to Unit: NA - patient done at bedside See hemodialysis flowsheet for details of treatment. are Plan - Ioana Portillo RN - 02/01/2020 6:34 PM CDT Problem: Discharge Planning Goal: Adequate for discharge Outcome: Progressing as expected Problem: Falls, Risk of Goal: Absence of falls Outcome: Progressing as expected Problem: Infection, Risk of or Actual Goal: Absence of infection Outcome: Progressing as expected Problem: Pain Goal: Reduction in pain sensation Outcome: Progressing as expected Problem: Procedure Routine Goal: Knowledge of procedure Outcome: Progressing as expected are Plan - Kevin Roger RN - 02/01/2020 5:14 PM CDT Problem: Procedure Routine Goal: Knowledge of procedure Outcome: Progressing as expected Hemodialysis Plan of care reviewed r/t treatment time & UF goal. Also reviewed possible side effects of HD tx, such as s/s of hypotension, cramping (during tx and at rare times after tx), N/V, CP or any other concerns. Patient acknowledge understanding of treatment plan. ursing Note - Parker Funez RN - 02/01/2020 6:53 AM CDTSpoke to [facility] to verify medication as well as patient's baseline. states thatpatient normally is A&OX4, needs standby assist but last couple of days has had fever, cough, diarrhea and increased confusion. Also states patient gets HD T, , and sat but missed d/t diarrhea. D Nurse Note - Rosette Moeller RN - 02/01/2020 3:58 AM CDT Report given to Parker, patient going to 2108 per stretcher. documented in this encounter Plan of Treatment Date Type Specialty Care Team Description 03/06/2020 Office Visit Cardiology Esteban Dempsey MD [address] [place] [address] [place] [address] [phone] Name Type Priority Associated Diagnoses Date/Ti me BLOOD CULTURE SCREEN LAB STAT Cough 02/01/2020 12:59 AM CDT Fever, unspecified fever cause BLOOD CULTURE SCREEN LAB STAT Cough 02/01/2020 1:19 AM CDT Fever, unspecified fever cause Name Type Priority Associated Diagnoses Order S chedule CBC with Differential LAB Routine EVERY MORNING AT 0400 for 5 Occurrenc es starting 2019 until 0, 1 completed Basic Metabolic Panel (NA, LAB Routine E VERY MORNING AT 0400 K, CL, CO2, GLUCOSE, BUN, fo r 5 Occurrences CREATININE, CA) starting 10/2019 until 0, 1 completed FECAL LEUKOCYTES LAB Routine ONCE for 1 Occurrences starting 2019 until 0 FECES CULTURE LAB Routine ONCE for 1 Occ urrences starting 2019 until 0 OCCULT (GUAIAC) BLOOD LAB Routine ONCE f or 1 Occurrences starting 2019 until 0 Health Maintenance Due Date Last Done Comments PNEUMOCOCCAL 0-64 YEARS COMBINED 07/30/1973 SERIES (1 of 3 - PCV13) FOOT EXAM 07/30/1985 COLON CANCER SCREENING ANNUAL 07/30/2017 FIT/FOBT COLON CANCER SCREENING FIT DNA 07/30/2017 EVERY 3 YEARS COLON CANCER SCREENING 07/30/2017 SIGMOIDOSCOPY EVERY 5 YEARS COLONOSCOPY 07/30/2017 Colorectal Cancer Screening 07/30/2017 Zoster Recombinant Vaccine 07/30/2017 (SHINGRIX) (1 of 2) INFLUENZA VACCINE (#1) 2019 EYE EXAM 02/27/2020 02/26/2019 Depression Screening 05/26/2020 05/26/2019 HgA1C 07/03/2020 01/04/2020, 06/25/2013 LDL-C 01/03/2021 01/04/2020 CREATININE (SERUM) 01/31/2021 02/01/2020, 01/04/2020, 05/14/2019, Additional history exists DTaP,Tdap,and Td Vaccines (2 - Td) 05/26/2029 05/26/2019 documented as of this encounter Procedures Procedure Name Priority Date/Time Associated Comments Diagnosis POCT GLUCOSE Routine 02/02/2020 12:13 Results for this (AUTOMATED) PM CDT procedure are i n the results section. POCT GLUCOSE Routine 02/02/2020 8:36 Results for this (AUTOMATED) AM CDT procedure are i n the results section. CBC WITH DIFF Routine 02/02/2020 3:07 Results fo r this AM CDT procedure are i n the results section. BASIC METABOLIC PANEL Routine 02/02/2020 3:07 Re sults for this (NA, K, CL, CO2, AM CDT procedure a re in GLUCOSE, BUN, the results CREATININE, CA) section. POCT GLUCOSE Routine 02/01/2020 7:50 Results for this (AUTOMATED) PM CDT procedure are i n the results section. POCT GLUCOSE Routine 02/01/2020 12:35 Results for this (AUTOMATED) PM CDT procedure are i n the results section. PROCALCITONIN Routine 02/01/2020 8:38 Results fo r this AM CDT procedure are i n the results section. LACTIC ACID WHOLE STAT 02/01/2020 8:38 Cough Results for this BLOOD AM CDT Fever, unspecified procedure are in fever cause the results section. AMMONIA, PLASMA Routine 02/01/2020 8:38 Results for this AM CDT procedure are i n the results section. POCT GLUCOSE Routine 02/01/2020 8:25 Results for this (AUTOMATED) AM CDT procedure are i n the results section. COVID-19 (PCR Routine 02/01/2020 3:34 Results fo r this MOLECULAR TESTING) AM CDT procedure are in the results section. LACTIC ACID WHOLE STAT 02/01/2020 3:23 Cough Results for this BLOOD AM CDT Fever, unspecified procedure are in fever cause the results section. CT ABDOMEN PELVIS WO STAT 02/01/2020 2:45 Cough Results for this CONTRAST AM CDT Fever, unspecified procedure are in fever cause the results section. XR CHEST 1 VW STAT 02/01/2020 2:06 Fever, unspecified Resu lts for this AM CDT fever cause procedure are i n the results section. BLOOD CULTURE SCREEN STAT 02/01/2020 1:19 Cough AM CDT Fever, unspecified fever cause URINE CULTURE STAT 02/01/2020 1:18 Cough Results for this AM CDT Fever, unspecified procedure are in fever cause the results section. URINALYSIS STAT 02/01/2020 1:18 Cough Results for this AM CDT Fever, unspecified procedure are in fever cause the results section. COVID-19 (ID NOW RAPID STAT 02/01/2020 1:03 Cough R esults for this TESTING) AM CDT procedure are i n the results section. CBC WITH DIFF STAT 02/01/2020 1:03 Cough Results fo r this AM CDT procedure are i n the results section. BASIC METABOLIC PANEL STAT 02/01/2020 1:03 Cough Re sults for this (NA, K, CL, CO2, AM CDT procedure a re in GLUCOSE, BUN, the results CREATININE, CA) section. BLOOD CULTURE SCREEN STAT 02/01/2020 12:59 Cough AM CDT Fever, unspecified fever cause documented in this encounter Results POCT GLUCOSE (AUTOMATED) (02/02/2020 12:13 PM CDT) Pathologist Sig nature POCT GLU 370 (H) 70 - 110 mg/dL [facility] Specimen Blood Performing Organization Address [facility] Phone Number [facility] CLIA: [id number] [place] [address] LABORATORY [address] [facility] POCT GLUCOSE (AUTOMATED) (02/02/2020 8:36 AM CDT) Pathologist Sig nature POCT GLU 215 (H) 70 - 110 mg/dL [facility] Specimen Blood Performing Organization Address [facility] Phone Number [facility] CLIA: [id number] [place] [address] LABORATORY [address] [facility] Basic Metabolic Panel (NA, K, CL, CO2, GLUCOSE, BUN, CREATININE, CA) (02/02/2020 3:07 AM CDT) NA 134 (L) 135 - 145 [facility] mmol/L [facility] K 3.7 3.5 - 5.0 [facility] mmol/L [facility] CL 102 98 - 108 mmol/L [facility] CO2 TOTAL 24 23 - 31 mmol/L [facility] AGAP 8 2 - 16 [facility] BUN 31 (H) 7 - 23 mg/dL [facility] GLUCOSE 228 (H) 70 - 110 mg/dL [facility] CREATININE 4.18 (H) 0.60 - 1.25 [facility] mg/dL [facility] CALCIUM 8.2 (L) 8.6 - 10.6 [facility] mg/dL [facility] eGFR Calculation 15.1 mL/min/1.73m2 [facility] (Non[facility] LABORATORY [place]) eGFR Calculation 18.3 mL/min/1.73m2 [facility] () [facility] Specimen Blood - ARM, LEFT Narrative Performed At Association of Glomerular Filtration Rate (GFR) [facility] and Staging of Kidney Disease* [...] Address City/State/Zipcode Phone Number [facility] CLIA: [id number] [place] [address] CBC with Differential (02/02/2020 3:07 AM CDT) WBC 4.86 4.20 - 10.70 [facility] 10*3/L [facility] RBC 3.50 (L) 4.26 - 5.52 [facility] 10*6/L [facility] HGB 11.6 (L) 12.2 - 16.4 [facility] g/dL [facility] HCT 33.5 (L) 38.4 - 49.3 % [facility] MCV 95.7 (H) 81.7 - 95.6 [facility] LABORATORY MCH 33.1 (H) 26.1 - 32.7 [facility] LABORATORY MCHC 34.6 31.2 - 35.0 [facility] g/dL [facility] RDW-SD 45.7 38.5 - 51.6 [facility] LABORATORY RDW-CV 13.2 12.1 - 15.4 % [facility] PLT 114 (L) 150 - 328 [facility] 10*3/L [facility] MPV 13.5 (H) 9.8 - 13.0 fL [facility] IPF % 10.5Comment: 1.2 - 10.7 % [facility] Platelet count [facility] measured by LABORATORY fluorescence method. NRBC/100 WBC 0.0 0.0 - 10.0 [facility] /100 WBCs [facility] NRBC x10^3 <0.01 10*3/L [facility] GRAN MAT (NEUT) % 48.6 % [facility] IMM GRAN % 0.40 % [facility] LYMPH % 38.3 % [facility] MONO % 8.0 % [facility] EOS % 4.3 % [facility] BASO % 0.4 % [facility] GRAN MAT 2.36 1.99 - 6.95 [facility] x10^3(ANC) 10*3/uL HOSPITAL LABORATORY IMM GRAN x10^3 <0.03 0.00 - 0.06 [facility] 10*3/uL [facility]OSPITAL LABORATORY LYMPH x10^3 1.86 1.09 - 3.23 [facility] 10*3/uL [facility]OSPITAL LABORATORY MONO x10^3 0.39 0.36 - 1.02 [facility] 10*3/uL HOSPITAL LABORATORY EOS x10^3 0.21 0.06 - 0.53 [facility] 10*3/uL [facility]PITAL LABORATORY BASO x10^3 <0.03 0.01 - 0.09 [facility] 10*3/uL [facility]ITAL LAB[facility]ORY Specimen Blood - ARM, LEFT Performing Organization Address [facility] Phone Number [facility] CLIA: [id number] [place] [address] POCT GLUCOSE (AUTOMATED) (02/01/2020 7:50 PM CDT) Pathologist Sig nature POCT GLU 175 (H) 70 - 110 mg/dL [facility] Specimen Blood Performing Organization Address [facility] Phone Number [facility] CLIA: [id number] [place] [address] POCT GLUCOSE (AUTOMATED) (02/01/2020 12:35 PM CDT) Pathologist Sig nature POCT GLU 218 (H) 70 - 110 mg/dL [facility] Specimen Blood Performing Organization Address [facility] [facility] [place] [facility] CLIA: [id number] [place] [address] PROCALCITONIN (02/01/2020 8:38 AM CDT) Pathologist Phani rutherford Procalcitonin 1.39 (H) <0.07 ng/mL [facility] Specimen Blood - ARM, RIGHT Narrative Performed At INTERPRETATION OF PROCALCITONIN RESULTS IN ADULTS >= 1 8 [facility] YEARS OF AGE Initiation and discontinuation of antibiotics on patie nts with suspected or confirmed Lower Respiratory Tract Infection in Adults >= 18 years of age. + + + +----- ------ + |Procalcitonin |Interpretation |Antibiotic |Considerations |ng/mL | |recommend ation | + + + +----- ------ + | <0.1 | Bacterial | Strongly | | | infection very | discouraged | Overruling: | | unlikely | | Clinically unstable + + + + H igh risk for adverse | <0.25 | Bacterial | Discouraged | outcome | | infection | | SEE IMPORTANT NOTE | | unlikely | | + + + +----- ------ + | >=0.25 | Bacterial | Encouraged | | | infection | | | | likely | | Consider treatment failure + + + + if l jeff does not decrease | >0.5 | Bacterial | Strongly | appropriately | | infection very | encouraged | | | likely | | + + + +----- ------ + Discontinuation of antibiotics in high-acuity patients with suspected or confirmed sepsis in Adults >= 18 years of age. + + + +----- ------ + |Procalcitonin |Interpretation |Antibiotic |Considerations |ng/mL | |recommend ation | + + + +----- ------ + | <0.25 | Bacterial | Strongly | | | infection very | discouraged | Overruling: | | unlikely | | Clinically unstable + + + + H igh risk for adverse | <0.5 or drop | Bacterial | Discouraged | outcome | >80% from | infection | | SEE IMPORTANT NOTE | highest PCT | unlikely | | | level | | | + + + +----- ------ + | >=0.5 | Bacterial | Encouraged | | | infection | | | | likely | | Consider treatment failure + + + + if l evels does not decrease | >1.0 | Bacterial | Strongly | appropriately | | infection very | encouraged | | | likely | | + + + +----- ------ + Percentage of drop of Procalcitonin calculation for Discontinuation of antibiotics in high-acuity patients with suspected or confirmed sepsis in Adults >= 18 years of age. Procalcitonin highest{}-Procalcitonin current{} Delta Procalcitonin = x100% Procalcitonin current {} IMPORTANT NOTE: Procalcitonin may be elevated without bacterial infection by physiologic stress related to t rauma, perry, chronic dialysis, metastatic cancer, surgery in the past seven days, malaria, some fungal infections, and some forms of vasculitis. The interpretation algorithm may not apply to patients with immunosuppression (equivalent o f >10 mg of prednisone daily), HIV with CD4 cell count < 350 cells/mm3, active malignancy on systemic chemotherapy, solid organ transplant or hematopoietic stem cell transplant ation, or hospital acquired pneumonia. Additionally, some cli nical trials of procalcitonin have excluded patients with sh ock requiring vasopressor use, acute respiratory failure requiring mechanical ventilation, or those with known lung abscess/empyema. For further information please refer to: [email or web address] Performing Organization Address [facility] Phone Number [facility] CLIA: [id number] [place] [address] [place] [address] AMMONIA, PLASMA (02/01/2020 8:38 AM CDT) Pathologist Sig [facility] AMMONIA <9 (L) 9 - 33 umol/L [facility] Specimen Blood - ARM, RIGHT Performing Organization Address [facility] [place] Phone Number [facility] CLIA: [id number] [place] [address] Lactic Acid Whole Blood (02/01/2020 8:38 AM CDT) Pathologist Sig [facility] LACTIC ACID 1.99 mmol/L [facility]ORAT[facility] Specimen Blood - ARM, RIGHT Performing Organization Address [facility] [place] Phone Number [facility] CLIA: [id number] [place] [address] LABORATORY [address] [facility] POCT GLUCOSE (AUTOMATED) (02/01/2020 8:25 AM CDT) [facility] POCT GLU 231 (H) 70 - 110 mg/dL [facility] LABOR[facility] Specimen Blood Performing Organization Address [facility] [place] Phone Number [facility] CLIA: [id number] [place] [address] LABORATORY [address] [facility] CORONAVIRUS COVID-19 TESTING (02/01/2020 3:34 AM CDT) Pathologist [facility] SARS-CoV-2 PCR Not Detected Not Detected [facility] Specimen Swab - NASOPHARYNGEAL SWAB Narrative Performed At Immunetics SARS-CoV-2 Assay is a nucleic acid [facility] amplification test intended for the qualitative detect ion of RNA from SARS-CoV-2 from nasopharyngeal (RAILROAD WHEELS AND AXLES INSPECTOR) specimens . It is used under Emergency Use Authorizatio n (EUA) by FDA. A positive result is indicative of the presence of SARS-CoV-2 RNA. Clinical correlation with patient hi story and other diagnostic information is necessary to deter mine patient infection status. A negative (Not Detected) result does not preclude SARS-CoV-2 infection. Clinical correlation with virginie ent history and other diagnostic information should be use d in patient management decisions. Invalid: Unable to generate a valid test result on thi s specimen. Please submit a new specimen for repeat te sting if clinically indicated. Performing Organization Address City/State/Zipcode Phone Number [facility] CLIA: [id number] [place] [address] [place], [place] [address]vd Lactic Acid Whole Blood (02/01/2020 3:23 AM CDT) Pathologist Sig nature LACTIC ACID 2.84 mmol/L [facility] LABOR[facility] Specimen Blood - VENOUS Performing Organization Address City/State/Zipcode Phone Number [facility] CLIA: [id number] [place] [address] ABDOMEN PELVIS WO CONTRAST (02/01/2020 2:45 AM CDT) Specimen Impressions Performed At PACS/VR/DOSE No acute intra-abdominal findings. Preliminary Report Dictated by Resident: Darling Nguyen MD., have reviewed this stud y and agree with the above report. Narrative Performed At EXAM: CT ABDOMEN AND PELVIS WITHOUT CONT RAST PACS/VR/DOSE HISTORY: Abd distension COMPARISON: CT of the abdomen dated 06/07. TECHNIQUE AND FINDINGS: Contiguous axial imaging from the level of the lung bases through the pubic symphysis was pe rformed without the intravenous administration of contrast. Coronal and sagittal reconstructions were obtained. Auto mA and/or iterative rec onstruction were used to reduce radiation dose. FINDINGS: LOWER THORAX: The lungs bases are clear. Short sliding hiatal hernia suspected. LIVER: The liver is enlarged at 19.9 cm. No focal hepa tic lesions. Normal liver contour. GALLBLADDER AND BILIARY TREE: Cholecyste ctomy. SPLEEN: No splenomegaly. A small splenul e is seen. PANCREAS: No ductal dilation or masses. ADRENAL GLANDS: No adrenal nodules. KIDNEYS: No hydronephrosis, stones, or m asses. Bilateral renal pelvis hyperdensities, likely vascular calcific ations. PERITONEUM AND RETROPERITONEUM: No free air or fluid. LYMPH NODES: No lymphadenopathy. GI TRACT: No dilation or wall thickening . Sigmoid diverticulosis. Normal appendix. PELVIS/BLADDER: Unremarkable. VESSELS: Unremarkable. BONES AND SOFT TISSUES: No suspicious ly tic or sclerotic bony lesions. Procedure Note Ut, Radiant Results Inft User - 2019 7:57 AM CDT EXAM: CT ABDOMEN AND PELVIS WITHOUT CONTRAST HISTORY: Abd distension COMPARISON: CT of the abdomen dated 06/07. TECHNIQUE AND FINDINGS: Contiguous axial imaging from the level of the lung bases through the pubic symphysis was pe rformed without the intravenous administration of contrast. Coronal and sagittal reconstructions were obtained. Auto mA and/or iterative francois nstruction were used to reduce radiation dose. FINDINGS: LOWER THORAX: The lungs bases are clear. Short sliding hiatal hernia suspected. LIVER: The liver is enlarged at 19.9 cm. No focal hepatic lesions. Normal liver contour. GALLBLADDER AND BILIARY TREE: Cholecyste ctomy. SPLEEN: No splenomegaly. A small splenul e is seen. PANCREAS: No ductal dilation or masses. ADRENAL GLANDS: No adrenal nodules. KIDNEYS: No hydronephrosis, stones, or m asses. Bilateral renal pelvis hyperdensities, likely vascular calcific ations. PERITONEUM AND RETROPERITONEUM: No free air or fluid. LYMPH NODES: No lymphadenopathy. GI TRACT: No dilation or wall thickening . Sigmoid diverticulosis. Normal appendix. PELVIS/BLADDER: Unremarkable. VESSELS: Unremarkable. BONES AND SOFT TISSUES: No suspicious ly tic or sclerotic bony lesions. IMPRESSION No acute intra-abdominal findings. Preliminary Report Dictated by Resident: Darling Nguyen MD., have revie wed this study and agree with the above report. Performing Organization Address City/State/Zipcode Phone Number PACS/VR/DOSE XR CHEST 1 VW (02/01/2020 2:06 AM CDT) Specimen Impressions Performed At PACS/VR/DOSE No acute intrathoracic abnormality. Preliminary Report Dictated by Resident: Darling Nguyen MD., have reviewed this stud y and agree with the above report. Narrative Performed At PROCEDURE: XR CHEST 1 VW PACS/VR/DOSE CLINICAL INDICATION: cough COMPARISON: Chest x-ray dated 07/10/2018 FINDINGS: Poor inspiratory effort trauma the patient resulting in 2 increased transverse diameter of the cardiac silhouett e and dilated central pulmonary arteries. The lungs are clear. No pleural effusion or pneumothor ax is seen. The heart is normal in size. Right IJ double lumen catheter term inates in the right atrium. No acute bony abnormality. Procedure Note [facility], Radiant Results Inft User - 2019 7:58 AM CDT PROCEDURE: XR CHEST 1 VW CLINICAL INDICATION: cough COMPARISON: Chest x-ray dated 07/10/2018 FINDINGS: Poor inspiratory effort trauma the patient resulting in 2 increased transverse diameter of the car diac silhouette and dilated central pulmonary arteries. The lungs are clear. No pleural effusion or pneumothorax is seen. The heart is normal in size. Right IJ double lumen catheter terminates in the right atrium. No acute bony abnormality. IMPRESSION No acute intrathoracic abnormality. Preliminary Report Dictated by Resident: Lorenza Watt I, Darling Mart MD., have revie wed this study and agree with the above report. Performing Organization Address City/State/Zipcode Phone Number PACS/VR/DOSE URINE CULTURE (02/01/2020 1:18 AM CDT) URINE CULTURE 10,000 - 100,000 [facility] CFU/mL mixed aerobic SERVICES organisms - suggests endogenous microbial contamination Specimen Urine - URINE, CLEAN CATCH Performing Organization Address City/[facility]/Zipcode Phone Number [facility] CLIA: [id number] [place] [address] [place] [address] URINALYSIS (02/01/2020 1:18 AM CDT) Pathologist Sig nature APPEARANCE Cloudy (A) Clear [facility] COLOR Yellow Yellow [facility] PH 5.0 4.8 - 8.0 [facility] SP GRAVITY 1.023 1.003 - 1.030 [facility] GLU U QUAL 500 mg/dL (A) Normal [facility] BLOOD 1+ (A) Negative [facility] KETONES Negative Negative [facility] PROTEIN 500 mg/dL (A) Negative [facility] UROBILIN Normal Normal [facility] BILIRUBIN Negative Negative [facility] NITRITE Negative Negative [facility] LEUK KATHERINE Negative Negative [facility] RBC/HPF 4 (H) 0 - 3 HPF [facility] WBC/HPF 3 0 - 5 HPF [facility] BACTERIA Many (A) Negative [facility] MUCOUS Slight (A) Negative LPF [facility] AMORPHOUS Few (A) Rare HPF [facility] SQ EPITH 1 HPF [facility] SPERM <1 <=1 HPF [facility] TRANS EPI <1 <=1 HPF [facility] Specimen Urine - URINE, CLEAN CATCH Performing Organization Address [facility] Phone Number [facility] CLIA: [id number] [place] [address] [place] [address] COVID-19 (ID NOW RAPID TESTING) (02/01/2020 1:03 AM CDT) SARS-CoV-2 Rapid ID Not Detected Not Detected [facility] Specimen Swab - NASOPHARYNGEAL SWAB Narrative Performed At ID NOW COVID-19 Assay is an isothermal nucleic [facility] acid amplification test intended for the qualitative detection of nucleic acid from SARS-CoV-2 viral RNA in nasopharyngeal (RAILROAD WHEELS AND AXLES INSPECTOR) specimens. It is used under Emergency Use Authorization (EUA) by FDA. The limit of detection (LOD) of the assay is 125 Genome Equivalents/mL. A positive result is indicative of the presence of SARS-CoV-2 RNA. Clinical correlation with patient history and other diagnostic information is necessary to determine patient infection status. A negative (Not Detected) result does not preclude SARS-CoV-2 infection. In patients with clinical symptoms and other tests that are consistent with SARS-CoV-2 infection, negative results should be treated as presumptive negative and a new specimen should be tested with alternative PCR molecular test. Invalid: Please collect a new specimen for repeat patient testing if clinically indicated. Performing Organization Address City/[facility]/Zipcode Phone Number [facility] CLIA: [id number] [place] [address] [place] [address] BASIC METABOLIC PANEL (NA, K, CL, CO2, GLUCOSE, BUN, CREATININE, CA) (02/01/2020 1:03 AM CDT) NA 130 (L) 135 - 145 [facility] mmol/L [facility] K 4.8 3.5 - 5.0 [facility] mmol/L [facility] CL 102 98 - 108 mmol/L [facility] CO2 TOTAL 19 (L) 23 - 31 mmol/L [facility] AGAP 9 2 - 16 [facility] BUN 49 (H) 7 - 23 mg/dL [facility] GLUCOSE 432 (H) 70 - 110 mg/dL [facility] CREATININE 5.25 (H) 0.60 - 1.25 [facility] mg/dL [facility] CALCIUM 8.1 (L) 8.6 - 10.6 [facility] mg/dL [facility] eGFR Calculation 11.6 mL/min/1.73m2 [facility] (Non[facility] LABORATORY [place]) eGFR Calculation 14.0 mL/min/1.73m2 [facility] () [facility] Specimen Blood - VENOUS Narrative Performed At Association of Glomerular Filtration Rate (GFR) [facility] and Staging of Kidney Disease* [...] Address City/State/Zipcode Phone Number [facility] CLIA: [id number] [place] [address] CBC WITH DIFF (02/01/2020 1:03 AM CDT) WBC 5.70 4.20 - 10.70 [facility] 10*3/L [facility] RBC 3.76 (L) 4.26 - 5.52 [facility] 10*6/L [facility] HGB 12.6 12.2 - 16.4 [facility] g/dL [facility] HCT 36.5 (L) 38.4 - 49.3 % [facility] MCV 97.1 (H) 81.7 - 95.6 [facility] LABORATORY MCH 33.5 (H) 26.1 - 32.7 [facility] LABORATORY MCHC 34.5 31.2 - 35.0 [facility] g/dL [facility] RDW-SD 46.9 38.5 - 51.6 [facility] LABORATORY RDW-CV 13.1 12.1 - 15.4 % [facility] PLT 113 (L) 150 - 328 [facility] 10*3/L [facility] MPV 13.6 (H) 9.8 - 13.0 fL [facility] IPF % 12.4 (H)Comment: 1.2 - 10.7 % [facility] Platelet count HOSPITAL measured by LABORATORY fluorescence method. NRBC/100 WBC 0.0 0.0 - 10.0 [facility] /100 WBCs [facility]AT[facility] NRBC x10^3 <0.01 10*3/L [facility] GRAN MAT (NEUT) % 66.7 % [facility] IMM GRAN % 1.40 % [facility] LYMPH % 21.6 % [facility] MONO % 7.2 % [facility] EOS % 2.6 % [facility] BASO % 0.5 % [facility] GRAN MAT 3.80 1.99 - 6.95 [facility] x10^3(ANC) 10*3/uL [facility]OSPITAL LABORATORY IMM GRAN x10^3 0.08 (H) 0.00 - 0.06 [facility] 10*3/uL [facility]ITAL LABORATORY LYMPH x10^3 1.23 1.09 - 3.23 [facility] 10*3/uL [facility]ITAL LABORATORY MONO x10^3 0.41 0.36 - 1.02 [facility] 10*3/uL HOSPITAL LABORATORY EOS x10^3 0.15 0.06 - 0.53 [facility] 10*3/uL [facility]ITAL LABORATORY BASO x10^3 0.03 0.01 - 0.09 [facility] 10*3/uL [facility]OS[facility]ITAL LABORATORY Specimen Blood - VENOUS Performing Organization Address City/State/Zipcode Phone Number [facility] CLIA: [id number] [place] [address] documented in this encounter Visit Diagnoses Diagnosis Cough - Primary Fever, unspecified fever cause Fever of unknown origin Fever, unspecified ESRD (end stage renal disease) End stage renal disease History of MS (myocardial infarction) Old myocardial infarction Obesity (BMI 30-39.9) Obesity, unspecified documented in this encounter Administered Medications Medication Order MAR Action Action Date Dose Rate Site acetaZOLAMIDE (DIAMOX) tablet 500 Given 02/02/2020 9:17 AM CDT 500 mg mg 500 mg, Oral, BID, First dose on Fri02/01/20 at 1999, Until Discontinued Given 02/01/2020 7:51 PM CDT 500 mg atenoloL (TENORMIN) tablet 50 mg Given 02/02/2020 9:17 AM CDT 50 mg 50 mg, Oral, BID, First dose on Fri02/01/20 at 2000, Until Discontinued, Routine Given 02/01/2020 7:51 PM CDT 50 mg atorvastatin (LIPITOR) tablet 40 mg Given 02/01/2020 7:51 PM CDT 40 mg 40 mg, Oral, QHS, First dose on Fri02/01/20 at 2100, Until Discontinued, Routine citalopram (CELEXA) tablet 20 mg Given 02/02/2020 9:17 AM CDT 20 mg 20 mg, Oral, DAILY, First dose on Fri02/02/20 at 0900, Until Discontinued, Routine dextrose 50 % in water (D50W) injection 25 mL 25 mL, Slow IV Push, PRN, Starting Fri at 0403, Until Discontinued, TIANNA, Blood Glucose < or = 70 mg/dL and patien t is unable to swallow or has mental status changes. glucagon (GLUCAGEN DIAGNOSTIC KIT) injec tion 1 mg 1 mg, Intramuscular, PRN, Starting Fri at 0403, Until Discontinued, TIANNA, Blood Glucose < or = 70 mg/dL and patient is unable to swallow or has mental changes. guaiFENesin 100 mg/5 mL solution 200 mg Given 02/02/2020 1:29 AM CDT 200 mg 200 mg, Oral, Q4HPRN, Starting Fri02/01/20 at 0705, Until Discontinued, Routine, Cough Given 02/01/2020 7:51 PM CDT 200 mg Given 02/01/2020 12:51 PM CDT 200 mg heparin (PF) 1,000 unit/mL injection Given 02/01/2020 7:25 PM C DT 3,200 Units 2,000 Units 2,000 Units, Slow IV Push, SEE-INSTRUCTIONS, 2 doses, Starting Fri02/01/20 at 1116, Until Discontinued, Routine heparin (porcine) injection Given 02/02/2020 9:18 AM CDT 5,000 Units Abdomen-SC 5,000 Units 5,000 Units, Subcutaneous, Q8H, First dose on Fri02/01/20 at 0600, Until Discontinued, Routine Given 02/01/2020 6:17 AM CDT 5,000 Units Abdo men-SC insulin glargine (LANTUS Given 02/02/2020 9:32 AM CDT 75 Units Left Upper Arm-SC U-100) injection 75 Units 75 Units, Subcutaneous, DAILY, First dose on Fri02/02/20 at 0900, Until Discontinued isosorbide mononitrate (IMDUR) 24 hr tablet Given 02/02/2020 9:17 AM CDT 60 mg 60 mg 60 mg, Oral, DAILY, First dose on Fri02/02/20 at 0900, Until Discontinued levETIRAcetam (KEPPRA) tablet 250 mg Given 02/02/2020 9:16 AM CDT 250 mg 250 mg, Oral, BID, First dose on Fri02/01/20 at 2000, Until Discontinued, Routine Given 02/01/2020 7:51 PM CDT 250 mg lisinopriL (PRINIVIL,ZESTRIL) tablet 10 mg Given 02/02/2020 9:17 AM CDT 10 mg 10 mg, Oral, DAILY, First dose on Fri02/02/20 at 0900, Until Discontinued, Routine melatonin (MELATIN) tablet 3 mg 3 mg, Oral, QHS, First dose (after last modification) on Fri02/02/20 at 0145, Until Discontinued, Routine nicotine (NICODERM) 21 mg/24 hr patch 1 Given 02/02/2020 9:17 A M CDT 1 Patch Patch 1 Patch, Topical, Administer over 24 Hours, Q24H, First dose on Fri02/01/20 at 0830, Until Discontinued, Routine Given 02/01/2020 8:04 AM CDT 1 Patch ondansetron (ZOFRAN (PF)) injection 4 mg 4 mg, Slow IV Push, Q6HPRN, Starting Fri02/01/20 at 04 03, Until Discontinued, Routine, Nausea and Vomiting (N/V) pantoprazole (PROTONIX) EC tablet 40 mg Given 02/02/2020 9:17 AM CDT 40 mg 40 mg, Oral, DAILY, First dose on Fri02/02/20 at 0900, Until Discontinued sevelamer (RENVELA) tablet 800 mg Given 02/02/2020 12:38 PM CDT 800 mg 800 mg, Oral, TID MEALS, First dose on Fri02/01/20 at 1700, Until Discontinued, Routine Given 02/02/2020 9:17 AM CDT 800 mg Sliding Scale Insulin-Regular + Given 02/02/2020 12:38 PM 8 Unit s Right Upper Fsbg Testing CDT Arm-SC Subcutaneous, AC+HS, First dose on Fri02/01/20 at 0730, Until Discontinued, Routine Given 02/02/2020 9:17 AM CDT 2 Units Left Upper Arm-SC Given 02/01/2020 9:38 PM CDT 2 Units Righ t Upper Arm-SC vitamin b complex-vitamin c-folic acid Given 02/02/2020 12:38 PM CDT 1 tablet (NEPHRO-ARACELY) 0.8 mg tablet 1 tablet 1 tablet, Oral, DAILY, First dose on Fri02/02/20 at 0900, Until Discontinued Medication Order MAR Action Action Date Dose Rate Site acetaminophen (TYLENOL) tablet Given 02/01/2020 1:22 AM CDT 650 mg 650 mg 650 mg, Oral, ONCE, 1 dose, Fri02/01/20 at 0215, TIANNA cefTRIAXone (ROCEPHIN) 1,000 mg in NaCl Given 02/01/2020 2:56 A M CDT 1,000 mg 0.9% (NS) 50 mL MINI-BAG 1,000 mg, IV Piggyback, ONCE, 1 dose, Fri02/01/20 at 0330, 50 mL, Reason for Anti-Infective: Empiric Therapy for Suspected Infection, Empiric Therapy Site: Urine, Duration of therapy: 7 days heparin (PF) 1,000 unit/mL injection Given 02/01/2020 4:44 PM C DT 1,500 Units 1,500 Units 1,500 Units, Slow IV Push, DIALYSIS ONCE - PT ROOM, 1 dose, 02/01/20 at 1130, Routine heparin (PF) 1,000 unit/mL injection Given 02/01/2020 5:58 PM C DT 1,500 Units 1,500 Units 1,500 Units, Slow IV Push, DIALYSIS ONCE - PT ROOM, 1 dose, 02/01/20 at 1130, Routine ibuprofen (IBU) tablet 600 mg Given 02/01/2020 3:24 AM CDT 600 mg 600 mg, Oral, ONCE, 1 dose, 02/01/20 at 0415, TIANNA levoFLOXacin in D5W (LEVAQUIN) 750 mg/150 mL Given 09/2019 7:51 PM CDT 750 mg Piggyback 750 mg 750 mg, IV Piggyback, ONCE, 1 dose, 02/01/20 at 1700, 150 mL, Reason for Anti-Infective: Empiric Therapy for Suspected Infection, Empiric Therapy Site: Respiratory, Duration of therapy: 7 days melatonin (MELATIN) tablet 3 mg Given 02/02/2020 1:29 AM CDT 3 mg 3 mg, Oral, QHS, First dose on Fri02/02/20 at 2100, Until Discontinued, Routine documented in this encounter Additional Health Concerns Infection Onset Date Last Indicated Resolved Time COVID-19 Rule Out 02/01/2020 02/01/2020 02/01/2020 2: 03 AM CDT COVID-19 Rule Out 02/01/2020 02/01/2020 02/01/2020 6: 25 PM CDT documented as of this encounter Insurance Payer Benefit Plan / Subscriber ID Effective Phone Address T ype Group Dates [facility] [id number] 2019-Prese [phone] [address] [employer] [facility] [phone] [place] [address] documented as of this encounter
--- OUTSIDE RECORDS SUMMARY | 2020-03-24 12:41 | XMS REPORT | Summary of Care ---
:1965 Author Organization [facility] Address [address] [place] [id number] Care Team Providers Name Role Phone Maria E Ornelas Primary Care Provider Alfonso Singh Insurance [employer] Primary Care Provider Carole Guerra DO Security Assistant Reason for Visit Reason Comments Referral/consult Appointment Encounter Details Date Type Department Care Team Description 01/19/2020 Telephone [facility] Yvette Rich, Referral/consult; and Clinics PHARMACY RESIDENT Appointment [address] [place] [phone] Allergies Active Allergy Reactions Severity Noted Date Comments Morphine Hives, Itching 06/25/2013 Hydrocodone-Acetaminophen Hives, Itching 06/25/2013 documented as of this encounter (statuses as of 02/03/2020) Medications Medication Sig Dispensed Refills Start Date [...] mouth 0 Active 2 (two) times daily. lisinopril 10 mg tablet Take 10 mg by mouth 0 Active daily. acetaZOLAMIDE 500 mg capsule Take 500 mg by mouth 0 Active 2 (two) times daily. gabapentin 300 mg capsule Take by mouth. Take 0 Active 1/2 tablet by mouth nightly brinzolamide (AZOPT) [...] the tongue every 5 artery disease involving [place] (five) minutes as coronary artery of [place] heart needed for Chest without angina pectoris pain. atorvastatin 40 mg tablet Take 1 tablet by 30 tablet 11 020 Active mouth at bedtime. documented as of this encounter (statuses as of 02/03/2020) Active Problems Problem Noted Date Fever of unknown origin 02/01/2020 Obesity (BMI 30-39.9) 02/01/2020 Seizures 05/26/2019 History of CVA (cerebrovascular accident) 05/26/2019 History of MD (myocardial infarction) 05/26/2019 Encounter for screening colonoscopy 05/26/2019 Coronary artery disease involving [place] coronary tho ry of [place] heart 05/26/2019 without angina pectoris Cirrhosis of [...] as of this encounter (statuses as of 02/03/2020) Immunizations Name Administration Dates Next Due TDAP [...] this encounter Miscellaneous Notes Telephone Encounter - Yvette Rich FNP - 02/03/2020 10:36 AM CDTCalled multiple times on different occassions. Left voicemail each time. No return call. Updated Dr. Dempsey that I was unable to reach this patient to schedule with us for a second opinion. Yvette Rich, JULIETH-C Cardiothoracic Surgery Pager: [phone] Provider # [id number] Telephone Encounter - Yvette Rich FNP - 01/20/2020 12:56 PM CDTCalled and left another voicemail. elephone Encounter - Yvette Rich FNP - 01/19/2020 3:[address]TDr. Dempsey sent message to schedule with CT surgery. Referred to CT surgery for second opinion. Per. Dempsey - He was seen by CTS at [facility]. Was told not a candidate at that time 05/2019. He and his wants to get second opinion. I called on 2 different occassions and left detailed voicemail. Will try again tomorrow. KEHINDE SchillingC Cardiothoracic Surgery Pager: [phone] Provider # [id number] documented in this encounter Plan of Treatment Date Type Specialty Care Team Description 03/06/2020 Office Visit Cardiology Esteban Dempsey MD [address] [place] [phone] Health Maintenance Due Date Last Done [...] 01/04/2020, 06/25/2013 LDL-C 01/03/2021 01/04/2020 CREATININE (SERUM) 02/01/2021 02/02/2020, 02/01/2020, 01/04/2020, Additional history exists DTaP,Tdap,and Td Vaccines (2 - Td) 05/26/2029 05/26/2019 documented as of this encounter Results Not on filedocumented in this encounter Additional Health Concerns Infection Onset Date Last Indicated Resolved Time COVID-19 Rule Out 02/01/2020 02/01/2020 02/01/2020 2: 03 AM CDT COVID-19 Rule Out 02/01/2020 02/01/2020 02/01/2020 6: 25 PM CDT documented as of this encounter Insurance Payer Benefit Plan / Subscriber ID Effective Phone Address T ype Group Dates [facility] [id number] 2019-Elisa [phone] [address] [employer] Patient Home Monitoring HEALTH CHOICE [phone] [place] [address] documented as of this encounter
--- OUTSIDE RECORDS SUMMARY | 2020-03-24 12:41 | XMS REPORT | Summary of Care ---
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 Encounter Details Date Type Department Care Team Description 02/11/2020 Orders Only [facility] Doctor Unassigned, No [address] [facility] [place] [address] [address] [place] [address] Allergies Active Allergy Reactions Severity Noted Date Comments Morphine Hives, Itching 06/25/2013 Hydrocodone-Acetaminophen Hives, Itching 06/25/2013 documented as of this encounter (statuses as of 02/17/2020) Medications Medication Sig Dispensed Refills Start Date [...] the tongue every 5 artery disease involving [place] (five) minutes as coronary artery of [place] heart needed for Chest without angina pectoris pain. atorvastatin 40 mg tablet Take 1 tablet by 30 tablet 11 020 Active mouth at bedtime. ONDANSETRON HCL ORAL Take 8 mg by mouth 3 0 Active (three) times daily. FAMOTIDINE ORAL Take 20 mg by mouth 0 Active daily. sevelamer 800 mg tablet Take 800 mg by mouth 0 Active 3 (three) times daily with meals. methocarbamoL 500 mg tablet Take 500 mg by mouth 0 Active 3 (three) times daily as needed (muscle spasms). ISOSORBIDE MONONITRATE ORAL Take 60 mg by mouth 0 Active daily. pantoprazole sodium Take 40 mg by mouth 0 Active (PANTOPRAZOLE ORAL) daily. folic acid/vit B complex and C Take 1 tablet by 0 Active (NEPHRO-ARACELY ORAL) mouth daily. calcium acetate 667 mg Tab Take 1 tablet by 0 Active mouth 3 (three) times daily with meals. gabapentin 300 mg capsule Take 300 mg by mouth 0 Active 3 (three) times daily. NOVOLOG U-100 INSULIN ASPART SC inject under the 0 Active skin. insulin glargine,hum.rec.anlog inject 75 Units under 0 Active (TOUJEO SOLOSTAR U-300 INSULIN the skin daily. SC) documented as of this encounter (statuses as of 02/17/2020) Active Problems Problem Noted Date Fever of unknown origin 02/01/2020 Obesity (BMI 30-39.9) 02/01/2020 Seizures 05/26/2019 History of CVA (cerebrovascular accident) 05/26/2019 History of MS (myocardial infarction) 05/26/2019 Encounter for screening colonoscopy 05/26/2019 Coronary artery disease involving [place] coronary tho ry of [place] heart 05/26/2019 without angina pectoris Cirrhosis of [...] as of this encounter (statuses as of 02/17/2020) Immunizations Name Administration Dates Next Due TDAP [...] Dempsey MD [address] [place] [place] [address] [phone] Health Maintenance Due Date Last Done [...] Name Priority Date/Time Associated Diagnosis Comme nts AUTHORIZATION FOR RELEASE Routine 02/11/2020 12:01 AM OF PHI CDT documented in this encounter Results Not on filedocumented in this encounter Insurance Payer Benefit Plan / Subscriber ID Effective Phone Address Cintia mendoza Group Dates [facility] [id number] 2019-Elisa [phone] [address] HMO HEALTH [employer] HEALTH CHOICE [phone] [id number] [place] [address] documented as of this encounter
[2020-03-24 13:00] LABS: Absolute Lymphocytes (CBC) 2.2 K/uL (0.7-4.9); Basophils % 1.2 % (0-1.3); Hematocrit 31.1 % (39.6-49.0); Lymphocytes % 25.6 % (15.3-44.8); MPV 11.7 fL (7.6-11.3); RBC Red Blood Cell Count 3.22 M/uL (4.33-5.43)
[2020-03-24 13:01] LABS: Protime INR 0.98
[2020-03-24 13:24] LABS: ALT/SGPT 27 U/L (12-78); AST/SGOT 15 U/L (15-37); Albumin 2.6 g/dL (3.4-5.0); Alkaline Phosphatase 102 U/L (45-117); BUN Blood Urea Nitrogen 81 mg/dL (7-18); Bicarbonate 22 mmol/L (21-32); Bilirubin Direct 0.1 mg/dL (0-0.2); Bilirubin Total 0.3 mg/dL (0.2-1.0); Glucose Level 393 mg/dL (74-106); Magnesium 1.6 mg/dL (1.8-2.4); NT PRO-BNP 1154 pg/mL (<125); Potassium 4.6 mmol/L (3.5-5.1); Protein, Total 6.3 g/dL (6.4-8.2); Sodium Level 136 mmol/L (136-145); Troponin (Emerg Dept Use Only) < 0.02 ng/mL (0.0-0.045)
--- NOTE | 2020-03-24 13:46 | RAD REPORT ---
EXAM DESCRIPTION: Noah Single View03/24/2020 1:40 pm CLINICAL HISTORY: Hypertension/weakness COMPARISON: November 2019 FINDINGS: The lungs appear clear of acute infiltrate. The heart is borderline enlarged. Central rosetta ous catheter is present IMPRESSION: No acute abnormalities displayed
--- NOTE | 2020-03-24 14:06 | RAD REPORT ---
EXAM DESCRIPTION: CT - Head Brain Wo Cont - 03/24/2020 1:53 pm CLINICAL HISTORY: Alteration of awareness/confusion COMPARISON: 2019 TECHNIQUE: Computed axial tomography of the head was obtained. IV contrast was not requested. All CT scans are performed using dose optimization technique as appropriate and may include automated exposure control or mA/KV adjustment according to patient size. FINDINGS: An intracranial bleed is not seen . The ventricles are normal in caliber. No extra-axial fluid collection is noted. A 22 millimeter low-density area left occipital lobe has the appearance of a remote infarction. Fluid within the sinuses/ mastoids is not seen. IMPRESSION: No acute intracranial abnormality is seen. If patient's symptoms persist MRI of the bra in would be recommended.
[2020-03-24 14:53] LABS: Arterial Blood Carboxyhemoglob 1.9 % (0-1.5); Blood Gas Oxyhemoglobin 90.5 % (94-97); Blood O2 Saturation 93.1 % (92-98.5)
[2020-03-24 16:23] LABS: Barbiturates NEGATIVE (NEGATIVE); Benzodiazepines NEGATIVE (NEGATIVE); Cocaine NEGATIVE (NEGATIVE); METHAMPHETAM NEGATIVE (NEGATIVE); Methadone NEGATIVE (NEGATIVE); Opiates NEGATIVE (NEGATIVE); Phencyclidine NEGATIVE (NEGATIVE); THC Cannibis NEGATIVE (NEGATIVE)
[2020-03-24 16:33] LABS: Urine Blood TRACE (NEG); Urine Glucose 2+ (NEG); Urine Protein 3+ (NEG); Urine pH 5.5 (5.0-7.0)
--- NOTE | 2020-03-24 16:48 | ER ---
Nurse's Notes [facility] Name: Wero Kwong Age: 54 yrs Sex: Male : 1965 Arrival Date: 03/24/2020 Time: 12:33 Bed 19 Private MD: Diagnosis: Altered mental status, unspecified Presentation: 03/24 12:34 Chief complaint: EMS states: Called for High blood sugar. says it was reading HI ca1 and pt is very lethargic and disoriented. gave 3 different kinds of Insulin, 17 units, 12 units, 4 units. He takes Novolog, Toujeo, Victoza. She didn't know which is one is which. Pt is on dialysis MWF, supposed to be on dialysis today. But he is very lethargic and couldn't get up. Last dialysis, pt unable to recall. His latest BGL is 417. Initial SBP 70s palpatory. IV started 18G LAC, Bolus NS 500ML given. Pt A\\T\\Ox3 at this time, lethargic, latest BP 100s/70s. Coronavirus screen: Client denies travel out of the [place] in the last 14 days. At this time, the client does not indicate any symptoms associated with coronavirus-19. Ebola Screen: Patient negative for fever greater than or equal to 101.5 degrees Fahrenheit, and additional compatible Ebola Virus Disease symptoms Patient denies exposure to infectious person. Patient denies travel to an Ebola-affected area in the 21 days before illness onset. No symptoms or risks identified at this time. Initial Sepsis Screen: Does the patient meet any 2 criteria? No. Patient's initial sepsis screen is negative. Does the patient have a suspected source of infection? No. Patient's initial sepsis screen is negative. Risk Assessment: Do you want to hurt yourself or someone else? Patient reports no desire to harm self or others. Onset of symptoms was March 24, 2020. 12:34 Method Of Arrival: EMS: [facility] ca1 12:34 Acuity: MARIA DEL ROSARIO 2 ca1 Historical: - Allergies: 12:42 Codeine; ca1 12:42 Hydrocodone-Acetaminophen; ca1 12:42 Morphine; ca1 - PMHx: 12:42 CAD; CHF; Cirrhosis; CVA; Diabetes - IDDM; dialysis (); High Cholesterol; ca1 Hypertension; kidney failure; Myocardial infarction; neuropathy; Seizures; - PSHx: 12:42 dialysis prot right chest; ca1 - Immunization history:: Adult Immunizations up to date. - Social history:: Smoking status: Patient reports the use of cigarette tobacco products, denies chronic smoking, but will smoke occasionally. Screenin:43 Abuse screen: Denies threats or abuse. Denies injuries from another. Nutritional ca1 screening: No deficits noted. Tuberculosis screening: No symptoms or risk factors identified. Fall Risk IV access (20 points). Assessment: 12:43 General: Appears in no apparent distress. comfortable, Behavior is calm, cooperative, ca1 drowsy. Pain: Denies pain. Neuro: Level of Consciousness is obeys commands, lethargic, Oriented to person, place, time, situation. Cardiovascular: Heart tones S1 S2 present Capillary refill < 3 seconds Patient's skin is warm and dry. Cardiovascular: Dialysis shunt: in the right supraclavicular area and right clavicle, with palpable thrill, with auscultated bruit. Respiratory: Airway is patent Respiratory effort is even, unlabored, Respiratory pattern is regular, symmetrical, Breath sounds are clear bilaterally. GI: Abdomen is round non-distended, Bowel sounds present X 4 quads. Abd is soft and non tender X 4 quads. : No signs and/or symptoms were reported regarding the genitourinary system. EENT: No signs and/or symptoms were reported regarding the EENT system. Derm: Skin is intact, is healthy with good turgor, Skin is pink, warm \\T\\ dry. Musculoskeletal: Circulation, motion, and sensation intact. Capillary refill < 3 seconds. 12:54 Reassessment: BGL 402. ca1 13:30 Reassessment: states, "his dialysis schedule is ,,S. Last dialysis session was ca1 Friday. He is supposed to go today instead of yesterday because of thanksgiving. 14:00 Reassessment: Patient appears in no apparent distress at this time. No changes from ca1 previously documented assessment. Patient and/or family updated on plan of care and expected duration. Pain level reassessed. 15:00 Reassessment: Patient appears in no apparent distress at this time. No changes from ca1 previously documented assessment. Patient and/or family updated on plan of care and expected duration. Pain level reassessed. 16:00 Reassessment: Patient appears in no apparent distress at this time. Patient and/or ca1 family updated on plan of care and expected duration. Pain level reassessed. Patient is alert/active/playful, equal unlabored respirations, skin warm/dry/pink. 16:15 Reassessment: Dr. Melara at bedside. ca1 16:55 Reassessment: Patient appears in no apparent distress at this time. Patient and/or ca1 family updated on plan of care and expected duration. Pain level reassessed. Patient is alert, oriented x 3, equal unlabored respirations, skin warm/dry/pink. Vital Signs: 12:34 BP 92 / 46; Pulse 79; Resp 20; Temp 98(TE); Pulse Ox 95% on R/A; ca1 12:57 BP 104 / 53; Pulse 73; Resp 16; Pulse Ox 95% on R/A; mt 12:58 Weight 102.06 kg (R); Height 5 ft. 7 in. (170.18 cm) (R); ca1 13:17 BP 107 / 66; Pulse 75; Resp 12; Pulse Ox 96% on R/A; mt 14:52 BP 141 / 87; Pulse 74; Resp 14; Pulse Ox 95% on R/A; mt 15:45 BP 128 / 86; Pulse 74; Resp 16 S; Pulse Ox 97% on R/A; ca1 16:26 BP 141 / 83; Pulse 76; Resp 16 S; Pulse Ox 100% on R/A; ca1 12:58 Body Mass Index 35.24 (102.06 kg, 170.18 cm) ca1 ED Course: 12:33 Patient arrived in ED. ca1 12:34 Ezekiel Cagle PA is PHCP. jmm 12:34 Marcelino Melara MD is Attending Physician. jmm 12:40 Triage completed. ca1 12:42 Arm band placed on right wrist. ca1 12:43 Patient has correct armband on for positive identification. Placed in gown. Call light ca1 in reach. Side rails up X2. environmental monitoring specialist on. Pulse ox on. NIBP on. Warm blanket given. 12:43 No provider procedures requiring assistance completed. Maintain EMS IV. Dressing ca1 intact. Good blood return noted. Site clean \\T\\ dry. Gauge \\T\\ site: 18 G LAC. 12:51 Abigail Laguna, RN is Primary Nurse. ca1 13:41 XRAY Chest (1 view) In Process Unspecified. EDMS 13:53 CT Head Brain wo Cont In Process Unspecified. EDMS 17:10 IV discontinued, intact, bleeding controlled, No redness/swelling at site. Pressure ca1 dressing applied. Administered Medications: No medications were administered Outcome: 16:47 Discharge ordered by MD. mackenzie 17:10 Discharged to home via wheelchair, with significant other. ca1 17:10 Condition: stable 17:10 Discharge instructions given to patient, significant other, Instructed on discharge instructions, follow up and referral plans. Demonstrated understanding of instructions, follow-up care. 17:10 Patient left the ED. ca1 Signatures: Dispatcher [employer] EDMS Ezekiel Cagle PA PA jmm Thompson, Moriah nd Abigail Laguna, RN RN ca1 Corrections: (The following items were deleted from the chart) 13:17 12:57 BP 104 / 53; Pulse 73bpm; Resp 18bpm; Pulse Ox 95% RA; ca1 mt 16:33 12:34 Chief complaint: EMS states: Called for High blood sugar. says it was ca1 reading HI and pt is very lethargic and disoriented. gave 3 different kinds of Insulin, 17 units, 12 units, 4 units. He takes Novolog, Toujeo, Victoza. She didn't know which is one is which. Pt is on dialysis MWF, supposed to be on dialysis today. But he is very lethargic and couldn't get up. Last dialysis, pt unable to recall. His latest BGL is 417. Initial SBP 70s palpatory. IV started 18G LAC, Bolus NS 500ML given. Pt A\\T\\Ox3 at this time, lethargic, latest BP 100s/70s ca1 16:56 12:43 Cardiovascular: Dialysis shunt: in the left clavicle, with palpable thrill, with ca1 auscultated bruit, ca1
--- NOTE | 2020-03-24 16:48 | EDPHYS ---
Physician Documentation [facility] Name: Wero Kwong Age: 54 yrs Sex: Male : 1965 Arrival Date: 03/24/2020 Time: 12:33 Bed 19 Private MD: ED Physician Marcelino Melara HPI: 03/24 12:38 This 54 yrs old Male presents to ER via EMS with complaints of High Blood jmm Sugar. 12:38 The patient presents with decreased responsiveness, disorientation. Onset: The jmm symptoms/episode began/occurred this morning. Possible causes: unknown. Associated signs and symptoms: Pertinent negatives: abdominal pain, chest pain, combativeness, diaphoresis. This is a 54 year old male with a history of CAD, CHF, Cirrhosis: CVA, DM, ESRD that presents to the ED with complaints of somnolence, patient states he is unable to stay awake. Patient denies chest pain, shortness of breath, abdominal pain. Patient took medication and directed this morning and went back to sleep. was having difficulty waking him up and getting him out of bed. . Historical: - Allergies: 12:42 Codeine; ca1 12:42 Hydrocodone-Acetaminophen; ca1 12:42 Morphine; ca1 - PMHx: 12:42 CAD; CHF; Cirrhosis; CVA; Diabetes - IDDM; dialysis (); High Cholesterol; ca1 Hypertension; kidney failure; Myocardial infarction; neuropathy; Seizures; - PSHx: 12:42 dialysis prot right chest; ca1 - Immunization history:: Adult Immunizations up to date. - Social history:: Smoking status: Patient reports the use of cigarette tobacco products, denies chronic smoking, but will smoke occasionally. ROS: 12:38 Constitutional: Negative for fever, chills, and weight loss, Cardiovascular: Negative jmm for chest pain, palpitations, and edema, Respiratory: Negative for shortness of breath, cough, wheezing, and pleuritic chest pain. 12:38 Neuro: Positive for 12:38 All other systems are negative. Exam: 12:38 Head/Face: atraumatic. jmm 12:38 ENT: Moist Mucus Membranes Neck: Trachea midline, Supple Chest/axilla: Normal chest wall appearance and motion. Cardiovascular: Regular rate and rhythm. No edema appreciated Respiratory: Normal respirations, no respiratory distress appreciated Abdomen/GI: Non distended, soft Back: Normal ROM Skin: General appearance color normal MS/ Extremity: Moves all extremities, no obvious deformities appreciated, no edema noted to the lower extremities 12:38 Constitutional: The patient appears somnolent 12:38 Eyes: Extraocular movements: intact throughout. 12:38 Neuro: Orientation: is normal, Mentation: is normal, Memory: is normal. 12:38 Psych: Behavior/mood is pleasant, cooperative. Vital Signs: 12:34 BP 92 / 46; Pulse 79; Resp 20; Temp 98(TE); Pulse Ox 95% on R/A; ca1 12:57 BP 104 / 53; Pulse 73; Resp 16; Pulse Ox 95% on R/A; mt 12:58 Weight 102.06 kg (R); Height 5 ft. 7 in. (170.18 cm) (R); ca1 13:17 BP 107 / 66; Pulse 75; Resp 12; Pulse Ox 96% on R/A; mt 14:52 BP 141 / 87; Pulse 74; Resp 14; Pulse Ox 95% on R/A; mt 15:45 BP 128 / 86; Pulse 74; Resp 16 S; Pulse Ox 97% on R/A; ca1 16:26 BP 141 / 83; Pulse 76; Resp 16 S; Pulse Ox 100% on R/A; ca1 12:58 Body Mass Index 35.24 (102.06 kg, 170.18 cm) ca1 MDM: 12:38 Patient medically screened. [facility] 16:46 Data reviewed: vital signs, nurses notes. Counseling: I had a detailed discussion with mackenzie the patient and/or guardian regarding: the historical points, exam findings, and any diagnostic results supporting the discharge/admit diagnosis, the need for outpatient follow up, to return to the emergency department if symptoms worsen or persist or if there are any questions or concerns that arise at home. 16:47 ED course: I discussed the patient along with HPI, and lab findings with Dr. Guerra. [facility] The patient has become more alert. Labs unremarkable. No acute finding is appreciated. Patient states he will be able to follow up tomorrow for dialysis. Family is otherwise given strict return precautions. Patient/ understood and agrees with the plan of care. . 03/24 12:40 Order name: Basic Metabolic Panel [facility] 03/24 12:40 Order name: CBC with Diff; Complete Time: 13:01 [facility] 03/24 12:40 Order name: LFT's; Complete Time: 13:29 [facility] 03/24 12:40 Order name: Magnesium; Complete Time: 13:29 [facility] 03/24 12:40 Order name: NT PRO-BNP; Complete Time: 13:29 [facility] 03/24 12:40 Order name: PT-INR; Complete Time: 13:05 [facility] 03/24 12:40 Order name: Troponin (emerg Dept Use Only); Complete Time: 13:29 [facility] 03/24 12:42 Order name: Basic Metabolic Panel; Complete Time: 13:29 [facility] 03/24 12:45 Order name: AMMONIA; Complete Time: 13:17 [facility] 03/24 12:45 Order name: Urine Drug Screen; Complete Time: 16:27 [facility] 03/24 12:59 Order name: Glucose, Ancillary Testing; Complete Time: 13:01 [facility] 03/24 14:35 Order name: ABG; Complete Time: 14:57 [facility] 03/24 14:48 Order name: ETOH Level; Complete Time: 15:16 [facility] 03/24 16:10 Order name: Urine Dipstick--Ancillary (enter results); Complete Time: 16:35 03/24 12:40 Order name: XRAY Chest (1 view); Complete Time: 13:48 [facility] 03/24 12:40 Order name: EKG; Complete Time: 12:42 [facility] 03/24 12:40 Order name: Cardiac monitoring; Complete Time: 12:52 [facility] 03/24 12:40 Order name: EKG - Nurse/Tech; Complete Time: 12:52 [facility] 03/24 12:40 Order name: IV Saline Lock; Complete Time: 12:52 [facility] 03/24 12:40 Order name: Labs collected and sent; Complete Time: 12:52 [facility] 03/24 12:40 Order name: O2 Per Protocol; Complete Time: 12:52 [facility] 03/24 12:40 Order name: O2 Sat Monitoring; Complete Time: 12:52 [facility] 03/24 12:40 Order name: Urine Dipstick-Ancillary (obtain specimen); Complete Time: 16:25 [facility] 03/24 12:45 Order name: Fingerstick Glucose; Complete Time: 12:52 [facility] 03/24 13:30 Order name: CT Head Brain wo Cont; Complete Time: 14:08 mackenzie Administered Medications: No medications were administered Disposition: 18:36 Co-signature as Attending Physician, Marcelino Melara MD. [email or web address] Disposition: 03/24/20 16:47 Discharged to Home. Impression: Altered mental status, unspecified. - Condition is Stable. - Discharge Instructions: Dialysis, Dialysis Diet. - Medication Reconciliation Form, Thank You Letter, Antibiotic Education, Prescription Opioid Use form. - Follow up: Private Physician; When: Tomorrow; Reason: Recheck today's complaints, Continuance of care, Re-evaluation by your physician. Signatures: Dispatcher [employer] EDMS Ezekiel Cagle PA PA jmm Alzahri, Mohammad, MD MD ma2 Abigail Laguna RN RN ca1 Corrections: (The following items were deleted from the chart) 17:10 16:47 03/24/2020 16:47 Discharged to Home. Impression: Altered mental status, ca1 unspecified. Condition is Stable. Forms are Medication Reconciliation Form, Thank You Letter, Antibiotic Education, Prescription Opioid Use. Follow up: Private Physician; When: Tomorrow; Reason: Recheck today's complaints, Continuance of care, Re-evaluation by your physician. mackenzie
[2020-03-24 18:02] VITALS: TEMP 98
[2020-03-24 18:16] VITALS: BP 141/83; O2SAT 100
== END 2020-03-24 17:10 | disposition home or self-care (01) ==
LOC: ER 12:27
DX: R41.82 Altered mental status, unspecified (principal); E11.22 Type 2 diabetes mellitus with diabetic chronic kidney disease; N18.6 End stage renal disease; F17.210 Nicotine dependence, cigarettes, uncomplicated; I50.9 Heart failure, unspecified; Z99.2 Dependence on renal dialysis; Z88.5 Allergy status to narcotic agent
CPT/HCPCS: 36415; 70450; 71045; 80048; 80076; 80307; 80320; 81003; 82140; 82805; 82947; 83735; 83880; 84484; 85025; 85610; 93005; 99284

== ENCOUNTER 2020-04-22 00:20 | Emergency (ER) | payer OTHER ==
--- OUTSIDE RECORDS SUMMARY | 2020-04-22 00:26 | XMS REPORT | Clinical Summary ---
:1965 Author Organization [facility] Address [address] [place] [address] Care Team Providers Name Role Phone MD [...] VACCINE (#1) 2019 Results Not on fileafter 04/22/2019 Advance Directives For more information, please contact: [phone] Code Status Date Activated Date Inactivated Comments Full Code 01/06/2019 5:51 PM 01/11/2019 7:13 PM This code status was determined by: Patient
--- OUTSIDE RECORDS SUMMARY | 2020-04-22 00:26 | XMS REPORT | Clinical Summary ---
:1965 Author Organization [facility] Address [address] [place] [address] Care Team Providers Name Role Phone Ceci [...] (Stop Taking at capsule morning. Discharge) atenolol Take 50 mg by 0 /20/20 Discon tinued (TENORMIN) 50 MG mouth daily. 20 (Reorder) tablet citalopram Take 20 mg by 0 03/20/20 Disco ntinued (CeleXA) 20 MG mouth daily. 20 (S top Taking at tablet Discharge) lisinopril Take 20 mg by 0 [...] mild pain. insulin 70/30 NPH Inject 80 units 20 mL 2 Discontinued and regular human twice a day 8 20 (Stop Taking at (NovoLIN 70/30 with food Disch arge) U-100 Insulin) 100 unit/mL (70-30) injection aspirin 325 MG Take 325 mg by 0 07/16/19 Discontinued tablet mouth daily. 20 (Stop T aking at Discharge) simvastatin Take 40 mg by 0 07/16/19 Disc ontinued (ZOCOR) 80 MG mouth nightly. 6 20 ( Reorder) tablet atenolol Take 50 mg by 0 07/16/19 Discon tinued (TENORMIN) 50 MG mouth daily. 7 20 (Stop Taking at tablet Discharge) citalopram Take 20 mg by 0 07/16/19 Disco ntinued (CeleXA) 20 MG mouth daily. 7 20 (R eorder) tablet atenoloL Take 1 tablet 30 tablet 2 08/15/19 d (TENORMIN) 50 MG (50 mg total) 0 20 tablet by mouth daily for 30 days. citalopram Take 1 tablet 30 tablet 2 08/15/19 Expir ed (CeleXA) 20 MG (20 mg total) 0 20 tablet by mouth daily for 30 days. gabapentin Take 0.5 15 tablet 2 08/15/19 (NEURONTIN) 600 mg tablets (300 mg 0 20 tablet total) by mouth nightly for 30 days. simvastatin Take 0.5 15 tablet 2 08/15/19 (ZOCOR) 80 MG tablets (40 mg 0 20 tablet total) by mouth nightly for 30 days. brimonidine Administer 1 4.5 mL 1 08/15/19 Expir ed (ALPHAGAN) 0.15 % drop into the 0 20 ophthalmic left eye every solution 8 (eight) hours for 30 days. calcium Take 1 capsule 90 capsule 3 08/15/19 Expi red acetate,phosphat (667 mg total) 0 20 bind, (PHOSLO) 667 by mouth 3 mg capsule (three) times a day with meals for 30 days. dorzolamide-timolo Administer 1 6 each 2 08/15/19 l (COSOPT) 2-0.5 % drop into the 0 [...] for 30 days. insulin NPH Inject 20 Units 10 mL 12 08/15/19 Ex pired (HumuLIN-N) 100 under the skin 0 20 unit/mL injection daily for 30 days. isosorbide Take 1 tablet 30 tablet 2 08/15/19 Expir ed mononitrate (60 mg total) 0 20 (IMDUR) 60 MG 24 by mouth daily hr tablet for 30 days. latanoprost Administer 1 1.5 mL 2 08/15/19 Expir ed (XALATAN) 0.005 % drop into the 0 20 ophthalmic left eye solution nightly for 30 days. levETIRAcetam Take 1 [...] for up to 30 days. nystatin Apply topically 260 g 1 08/15/19 Expi red (MYCOSTATIN) 2 (two) times a 0 20 100,000 unit/gram day for 30 powder days. pantoprazole Take 1 tablet 30 tablet 2 08/16/19 Exp ired (PROTONIX) 40 MG (40 mg total) 0 20 EC tablet by mouth daily for 30 days. polyethylene Take 17 g by 30 packet 2 08/15/19 Expi red glycol (MIRALAX) mouth daily for 0 20 17 gram packet 30 days. riFAXimin Take 1 tablet 60 tablet 3 08/15/19 d (XIFAXAN) 550 mg (550 mg total) 0 20 tablet by mouth 2 (two) times a day for 30 days. sevelamer Take 1 tablet 90 tablet 2 08/15/19 d (RENVELA) 800 mg (800 mg total) 0 20 tablet by mouth 3 (three) times a day with meals for 30 days. 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/2016 with angina pectoris Cirrhosis 12/01/2016 Hypertriglyceridemia 12/01/2016 Depression 12/01/2016 Encounters Date Type Specialty Care Team Description 12/30/2019 Travel 12/28/2019 Emergency Emergency Medicine Mirtha Palomino-Dionte Hypervole cristóbal, unspecified hypervolemia type (Primary Dx); MD Aniceto Hyperkalemia 12/28/2019 Travel 08/09/2019 Telephone Ophthalmology Barbi Suarez MD 07/19/2019 Patient Outreach Quality Ana Paula Martin RN 07/19/2019 Telephone Ophthalmology Barbi Suarez MD 07/03/2019 Documentation General Internal [place], Medicine HAYLEE Tellez 07/02/2019 Telephone Ophthalmology Jennifer Tyler MD 07/01/2019 Ophth Exam Ophthalmology Shea Whitehead MD 07/01/2019 Telephone Ophthalmology Dana Llamas MA 06/12/2019 Hospital Encounter General Internal Guillermo Jeffery Acute renal failure, unspecified acute renal failure type (HCC) (Primary Dx); - Medicine MD Ryan Tachycardia; 07/16/2019 Tomi, Chest pain, uns pecified type; Milton Schumacher Shortness of br eatlouise; MD Adelfo Chronic hyperte nsion; Coronary arteri osclerosis due to lipid rich plaque; Controlled type 2 diabetes mellitus with other specified complication, without long-term current use of insulin (HCC); Nausea vomiting and diarrhea; Hyperglycemia; Cirrhosis of li loreto without ascites, unspecified hepatic cirrhosis type (HCC); Essential hyper tension; Coronary artery disease involving united [place]uburn coronary artery of united [place]ub[place] heart with angina pectoris (HCC); Current mild ep isode of major depressive disorder without prior episode (HCC); 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); Diabetic periph eral neuropathy (HCC); Diarrhea, unspe cified type; Edema of left o rbit; Hypertriglyceri demia; 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 POC GLUCOSE Routine 07/05/2019 [...] Routine 07/03/2019 9:52 Results for this PM CULINARY ARTIST procedure are i n the results section. POC GLUCOSE Routine 07/03/2019 4:16 Results for this PM CULINARY ARTIST procedure are i n the results section. POC GLUCOSE Routine 07/03/2019 12:31 Results for this PM CULINARY ARTIST procedure are i n the results section. POC GLUCOSE Routine 07/03/2019 11:50 Results for this AM CULINARY ARTIST procedure are i n the results section. POC GLUCOSE Routine 07/03/2019 7:48 Results for this AM CULINARY ARTIST procedure are i n the results section. ESTIMATED GFR Routine 07/03/2019 4:00 Results fo r this AM CULINARY ARTIST procedure are i n the results section. VANCOMYCIN LEVEL, RANDOM Routine 07/03/2019 4:00 Results for this AM CULINARY ARTIST procedure are i n the results section. PHOSPHORUS LEVEL Routine 07/03/2019 4:00 Results for this AM CULINARY ARTIST procedure are i n the results section. MAGNESIUM LEVEL Routine 07/03/2019 4:00 Results for this AM CULINARY ARTIST procedure are i n the results section. BASIC METABOLIC PANEL Routine 07/03/2019 4:00 Re sults for this AM CULINARY ARTIST procedure are i n the results section. POC GLUCOSE Routine 07/02/2019 9:29 Results for this PM CULINARY ARTIST procedure are i n the results section. POC GLUCOSE Routine 07/02/2019 6:48 Results for this PM CULINARY ARTIST procedure are i n the results section. ESTIMATED GFR Routine 07/02/2019 4:05 Results fo r this PM CULINARY ARTIST procedure are i n the results section. BASIC METABOLIC PANEL Routine 07/02/2019 4:05 Re sults for this PM CULINARY ARTIST procedure are i n the results section. POC GLUCOSE Routine 07/02/2019 4:03 Results for this PM CULINARY ARTIST procedure are i n the results section. VENIPUNC NEED PHYS Routine 07/02/2019 2:59 Resul ts for this SKILL,DX OR RX PM CULINARY ARTIST procedure are in the results section. POC GLUCOSE Routine 07/02/2019 11:52 Results for this AM CULINARY ARTIST procedure are i n the results section. POC GLUCOSE Routine 07/02/2019 8:44 Results for this AM CULINARY ARTIST procedure are i n the results section. ESTIMATED GFR Routine 07/02/2019 4:00 Results fo r this AM CULINARY ARTIST procedure are i n the results section. PHOSPHORUS LEVEL Routine 07/02/2019 4:00 Results for this AM CULINARY ARTIST procedure are i n the results section. MAGNESIUM LEVEL Routine 07/02/2019 4:00 Results for this AM CULINARY ARTIST procedure are i n the results section. BASIC METABOLIC PANEL Routine 07/02/2019 4:00 Re sults for this AM CULINARY ARTIST procedure are i n the results section. VANCOMYCIN LEVEL, RANDOM Routine 07/02/2019 4:00 Results for this AM CULINARY ARTIST procedure are i n the results section. POC GLUCOSE Routine 07/01/2019 9:39 Results for this PM CULINARY ARTIST procedure are i n the results section. POC GLUCOSE Routine 07/01/2019 5:04 Results for this PM CULINARY ARTIST procedure are i n the results section. VANCOMYCIN LEVEL, TROUGH Timed 07/01/2019 2:30 Results for this PM CULINARY ARTIST procedure are i n the results section. POC GLUCOSE Routine 07/01/2019 12:20 Results for this PM CULINARY ARTIST procedure are i n the results section. POC GLUCOSE Routine 07/01/2019 8:33 Results for this AM CULINARY ARTIST procedure are i n the results section. POC GLUCOSE Routine 07/01/2019 4:13 Results for this AM CULINARY ARTIST procedure are i n the results section. ESTIMATED GFR Routine 07/01/2019 4:00 Results fo r this AM CULINARY ARTIST procedure are i n the results section. HEPATIC FUNCTION PANEL Routine 07/01/2019 4:00 R esults for this AM CULINARY ARTIST procedure are i n the results section. PHOSPHORUS LEVEL Routine 07/01/2019 4:00 Results for this AM CULINARY ARTIST procedure are i n the results section. MAGNESIUM LEVEL Routine 07/01/2019 4:00 Results for this AM CULINARY ARTIST procedure are i n the results section. BASIC METABOLIC PANEL Routine 07/01/2019 4:00 Re sults for this AM CULINARY ARTIST procedure are i n the results section. POC GLUCOSE Routine 06/30/2019 11:36 Results for this PM CULINARY ARTIST procedure are i n the results section. POC GLUCOSE Routine 06/30/2019 9:09 Results for this PM CULINARY ARTIST procedure are i n the results section. POC GLUCOSE Routine 06/30/2019 5:15 Results for this PM CULINARY ARTIST procedure are i n the results section. POC GLUCOSE Routine 06/30/2019 2:40 Results for this PM CULINARY ARTIST procedure are i n the results section. POC GLUCOSE Routine 06/30/2019 11:58 Results for this AM CULINARY ARTIST procedure are i n the results section. SURGICAL PATHOLOGY Routine 06/30/2019 11:36 Resul ts for this REQUEST AM CULINARY ARTIST procedure are i n the results section. POC GLUCOSE Routine 06/30/2019 10:00 Results for this AM CULINARY ARTIST procedure are i n the results section. IR TRANSJUGULAR LIVER Routine 06/30/2019 9:39 Re sults for this BIOPSY AM CULINARY ARTIST procedure are i n the results section. ESTIMATED GFR Routine 06/30/2019 4:03 Results fo r this AM CULINARY ARTIST procedure are i n the results section. VANCOMYCIN LEVEL, RANDOM Routine 06/30/2019 4:03 Results for this AM CULINARY ARTIST procedure are i n the results section. HEPATIC FUNCTION PANEL Routine 06/30/2019 4:03 R esults for this AM CULINARY ARTIST procedure are i n the results section. PHOSPHORUS LEVEL Routine 06/30/2019 4:03 Results for this AM CULINARY ARTIST procedure are i n the results section. MAGNESIUM LEVEL Routine 06/30/2019 4:03 Results for this AM CULINARY ARTIST procedure are i n the results section. BASIC METABOLIC PANEL Routine 06/30/2019 4:03 Re sults for this AM CULINARY ARTIST procedure are i n the results section. POC GLUCOSE Routine 06/29/2019 9:21 Results for this PM CULINARY ARTIST procedure are i n the results section. POC GLUCOSE Routine 06/29/2019 4:06 Results for this PM CULINARY ARTIST procedure are i n the results section. POC GLUCOSE Routine 06/29/2019 12:30 Results for this PM CULINARY ARTIST procedure are i n the results section. POC GLUCOSE Routine 06/29/2019 8:25 Results for this AM CULINARY ARTIST procedure are i n the results section. ESTIMATED GFR Routine 06/29/2019 4:54 Results fo r this AM CULINARY ARTIST procedure are i n the results section. HEPATIC FUNCTION PANEL Routine 06/29/2019 4:54 R esults for this AM CULINARY ARTIST procedure are i n the results section. VANCOMYCIN LEVEL, RANDOM Routine 06/29/2019 4:54 Results for this AM CULINARY ARTIST procedure are i n the results section. HC COMPLETE BLD COUNT Routine 06/29/2019 4:54 Re sults for this W/AUTO DIFF AM CULINARY ARTIST procedure are i n the results section. PHOSPHORUS LEVEL Routine 06/29/2019 4:54 Results for this AM CULINARY ARTIST procedure are i n the results section. MAGNESIUM LEVEL Routine 06/29/2019 4:54 Results for this AM CULINARY ARTIST procedure are i n the results section. BASIC METABOLIC PANEL Routine 06/29/2019 4:54 Re sults for this AM CULINARY ARTIST procedure are i n the results section. POC GLUCOSE Routine 06/28/2019 8:33 Results for this PM CULINARY ARTIST procedure are i n the results section. POC GLUCOSE Routine 06/28/2019 4:06 Results for this PM CULINARY ARTIST procedure are i n the results section. POC GLUCOSE Routine 06/28/2019 12:29 Results for this PM CULINARY ARTIST procedure are i n the results section. HEPATIC FUNCTION PANEL Routine 06/28/2019 12:23 R esults for this PM CULINARY ARTIST procedure are i n the results section. ECG 12-LEAD STAT 06/28/2019 9:41 Results for this AM CULINARY ARTIST procedure are i n the results section. POC GLUCOSE Routine 06/28/2019 9:14 Results for this AM CULINARY ARTIST procedure are i n the results section. HEPATIC FUNCTION PANEL Timed 06/28/2019 9:13 R esults for this AM CULINARY ARTIST procedure are i n the results section. TROPONIN Timed 06/28/2019 9:13 Results for this AM CULINARY ARTIST procedure are i n the results section. ESTIMATED GFR Routine 06/28/2019 5:22 Results fo r this AM CULINARY ARTIST procedure are i n the results section. VANCOMYCIN LEVEL, RANDOM Routine 06/28/2019 5:22 Results for this AM CULINARY ARTIST procedure are i n the results section. PHOSPHORUS LEVEL Routine 06/28/2019 5:22 Results for this AM CULINARY ARTIST procedure are i n the results section. MAGNESIUM LEVEL Routine 06/28/2019 5:22 Results for this AM CULINARY ARTIST procedure are i n the results section. BASIC METABOLIC PANEL Routine 06/28/2019 5:22 Re sults for this AM CULINARY ARTIST procedure are i n the results section. POC GLUCOSE Routine 06/27/2019 9:03 Results for this PM CULINARY ARTIST procedure are i n the results section. POC GLUCOSE Routine 06/27/2019 5:04 Results for this PM CULINARY ARTIST procedure are i n the results section. POC GLUCOSE Routine 06/27/2019 2:07 Results for this PM CULINARY ARTIST procedure are i n the results section. POC GLUCOSE Routine 06/27/2019 11:57 Results for this AM CULINARY ARTIST procedure are i n the results section. POC GLUCOSE Routine 06/27/2019 8:26 Results for this AM CULINARY ARTIST procedure are i n the results section. ECG 12-LEAD Routine 06/27/2019 8:13 Results for this AM CULINARY ARTIST procedure are i n the results section. ESTIMATED GFR Routine 06/27/2019 5:14 Results fo r this AM CULINARY ARTIST procedure are i n the results section. VANCOMYCIN LEVEL, RANDOM Routine 06/27/2019 5:14 Results for this AM CULINARY ARTIST procedure are i n the results section. PHOSPHORUS LEVEL Routine 06/27/2019 5:14 Results for this AM CULINARY ARTIST procedure are i n the results section. MAGNESIUM LEVEL Routine 06/27/2019 5:14 Results for this AM CULINARY ARTIST procedure are i n the results section. BASIC METABOLIC PANEL Routine 06/27/2019 5:14 Re sults for this AM CULINARY ARTIST procedure are i n the results section. POC GLUCOSE Routine 06/26/2019 9:21 Results for this PM CULINARY ARTIST procedure are i n the results section. POC GLUCOSE Routine 06/26/2019 7:41 Results for this PM CULINARY ARTIST procedure are i n the results section. POC GLUCOSE Routine 06/26/2019 7:12 Results for this PM CULINARY ARTIST procedure are i n the results section. ULTRAFILTRATION Routine 06/26/2019 1:39 PM CULINARY ARTIST POC GLUCOSE Routine 06/26/2019 12:05 Results for this PM CULINARY ARTIST procedure are i n the results section. POC GLUCOSE Routine 06/26/2019 8:54 Results for this AM CULINARY ARTIST procedure are i n the results section. ESTIMATED GFR Routine 06/26/2019 6:25 Results fo r this AM CULINARY ARTIST procedure are i n the results section. VANCOMYCIN LEVEL, RANDOM Routine 06/26/2019 6:25 Results for this AM CULINARY ARTIST procedure are i n the results section. HC COMPLETE BLD COUNT Routine 06/26/2019 6:25 Re sults for this W/AUTO DIFF AM CULINARY ARTIST procedure are i n the results section. PHOSPHORUS LEVEL Routine 06/26/2019 6:25 Results for this AM CULINARY ARTIST procedure are i n the results section. MAGNESIUM LEVEL Routine 06/26/2019 6:25 Results for this AM CULINARY ARTIST procedure are i n the results section. BASIC METABOLIC PANEL Routine 06/26/2019 6:25 Re sults for this AM CULINARY ARTIST procedure are i n the results section. POC GLUCOSE Routine 06/25/2019 11:39 Results for this PM CULINARY ARTIST procedure are i n the results section. HEMODIALYSIS Routine 06/25/2019 9:44 PM CULINARY ARTIST POC GLUCOSE Routine 06/25/2019 9:14 Results for this PM CULINARY ARTIST procedure are i n the results section. ESTIMATED GFR Routine 06/25/2019 6:45 Results fo r this PM CULINARY ARTIST procedure are i n the results section. PHOSPHORUS LEVEL Routine 06/25/2019 6:45 Results for this PM CULINARY ARTIST procedure are i n the results section. BASIC METABOLIC PANEL Routine 06/25/2019 6:45 Re sults for this PM CULINARY ARTIST procedure are i n the results section. POC GLUCOSE Routine 06/25/2019 3:45 Results for this PM CULINARY ARTIST procedure are i n the results section. POC GLUCOSE Routine 06/25/2019 11:30 Results for this AM CULINARY ARTIST procedure are i n the results section. POC GLUCOSE Routine 06/25/2019 7:47 Results for this AM CULINARY ARTIST procedure are i n the results section. POC GLUCOSE Routine 06/25/2019 12:05 Results for this AM CULINARY ARTIST procedure are i n the results section. POC GLUCOSE Routine 06/24/2019 9:12 Results for this PM CULINARY ARTIST procedure are i n the results section. POC GLUCOSE Routine 06/24/2019 4:22 Results for this PM CULINARY ARTIST procedure are i n the results section. POC GLUCOSE Routine 06/24/2019 1:17 Results for this PM CULINARY ARTIST procedure are i n the results section. HEMODIALYSIS Routine 06/24/2019 11:11 AM CULINARY ARTIST POC GLUCOSE Routine 06/24/2019 7:35 Results for this AM CULINARY ARTIST procedure are i n the results section. ESTIMATED GFR Routine 06/24/2019 4:00 Results fo r this AM CULINARY ARTIST procedure are i n the results section. HC COMPLETE BLD COUNT Routine 06/24/2019 4:00 Re sults for this W/AUTO DIFF AM CULINARY ARTIST procedure are i n the results section. HEPATIC FUNCTION PANEL Routine 06/24/2019 4:00 R esults for this AM CULINARY ARTIST procedure are i n the results section. PHOSPHORUS LEVEL Routine 06/24/2019 4:00 Results for this AM CULINARY ARTIST procedure are i n the results section. MAGNESIUM LEVEL Routine 06/24/2019 4:00 Results for this AM CULINARY ARTIST procedure are i n the results section. BASIC METABOLIC PANEL Routine 06/24/2019 4:00 Re sults for this AM CULINARY ARTIST procedure are i n the results section. POC GLUCOSE Routine 06/23/2019 6:00 Results for this PM CULINARY ARTIST procedure are i n the results section. HEMODIALYSIS Routine 06/23/2019 12:21 PM CULINARY ARTIST POC GLUCOSE Routine 06/23/2019 11:18 Results for this AM CULINARY ARTIST procedure are i n the results section. IR TUNNELED DIALYSIS Routine 06/23/2019 10:03 Res ults for this CATHETER PLACEMENT AM CULINARY ARTIST procedure are in the results section. POC GLUCOSE Routine 06/23/2019 9:54 Results for this AM CULINARY ARTIST procedure are i n the results section. POC GLUCOSE Routine 06/23/2019 8:19 Results for this AM CULINARY ARTIST procedure are i n the results section. ESTIMATED GFR Routine 06/23/2019 5:30 Results fo r this AM CULINARY ARTIST procedure are i n the results section. HC COMPLETE BLD COUNT Routine 06/23/2019 5:30 Re sults for this W/AUTO DIFF AM CULINARY ARTIST procedure are i n the results section. HEPATIC FUNCTION PANEL Routine 06/23/2019 5:30 R esults for this AM CULINARY ARTIST procedure are i n the results section. PHOSPHORUS LEVEL Routine 06/23/2019 5:30 Results for this AM CULINARY ARTIST procedure are i n the results section. MAGNESIUM LEVEL Routine 06/23/2019 5:30 Results for this AM CULINARY ARTIST procedure are i n the results section. BASIC METABOLIC PANEL Routine 06/23/2019 5:30 Re sults for this AM CULINARY ARTIST procedure are i n the results section. POC GLUCOSE Routine 06/22/2019 9:30 Results for this PM CULINARY ARTIST procedure are i n the results section. POC GLUCOSE Routine 06/22/2019 12:28 Results for this PM CULINARY ARTIST procedure are i n the results section. POC GLUCOSE Routine 06/22/2019 8:38 Results for this AM CULINARY ARTIST procedure are i n the results section. ESTIMATED GFR Routine 06/22/2019 4:30 Results fo r this AM CULINARY ARTIST procedure are i n the results section. HEPATIC FUNCTION PANEL Routine 06/22/2019 4:30 R esults for this AM CULINARY ARTIST procedure are i n the results section. HC COMPLETE BLD COUNT Routine 06/22/2019 4:30 Re sults for this W/AUTO DIFF AM CULINARY ARTIST procedure are i n the results section. PHOSPHORUS LEVEL Routine 06/22/2019 4:30 Results for this AM CULINARY ARTIST procedure are i n the results section. MAGNESIUM LEVEL Routine 06/22/2019 4:30 Results for this AM CULINARY ARTIST procedure are i n the results section. BASIC METABOLIC PANEL Routine 06/22/2019 4:30 Re sults for this AM CULINARY ARTIST procedure are i n the results section. POC GLUCOSE Routine 06/22/2019 12:07 Results for this AM CULINARY ARTIST procedure are i n the results section. POC GLUCOSE Routine 06/21/2019 9:03 Results for this PM CULINARY ARTIST procedure are i n the results section. POC GLUCOSE Routine 06/21/2019 7:26 Results for this PM CULINARY ARTIST procedure are i n the results section. POC GLUCOSE Routine 06/21/2019 4:33 Results for this PM CULINARY ARTIST procedure are i n the results section. XR ABDOMEN 1 VW PORTABLE Routine 06/21/2019 4:08 Results for this PM CULINARY ARTIST procedure are i n the results section. POC GLUCOSE Routine 06/21/2019 11:46 Results for this AM CULINARY ARTIST procedure are i n the results section. POC GLUCOSE Routine 06/21/2019 8:15 Results for this AM CULINARY ARTIST procedure are i n the results section. ESTIMATED GFR Routine 06/21/2019 4:00 Results fo r this AM CULINARY ARTIST procedure are i n the results section. PHOSPHORUS LEVEL Routine 06/21/2019 4:00 Results for this AM CULINARY ARTIST procedure are i n the results section. MAGNESIUM LEVEL Routine 06/21/2019 4:00 Results for this AM CULINARY ARTIST procedure are i n the results section. BASIC METABOLIC PANEL Routine 06/21/2019 4:00 Re sults for this AM CULINARY ARTIST procedure are i n the results section. POC GLUCOSE Routine 06/20/2019 9:33 Results for this PM CULINARY ARTIST procedure are i n the results section. GRAM STAIN Routine 06/20/2019 5:32 Results for this PM CULINARY ARTIST procedure are i n the results section. AEROBIC CULTURE Routine 06/20/2019 5:32 Results for this PM CULINARY ARTIST procedure are i n the results section. POC GLUCOSE Routine 06/20/2019 3:51 Results for this PM CULINARY ARTIST procedure are i n the results section. POC GLUCOSE Routine 06/20/2019 12:25 Results for this PM CULINARY ARTIST procedure are i n the results section. POC GLUCOSE Routine 06/20/2019 7:34 Results for this AM CULINARY ARTIST procedure are i n the results section. ESTIMATED GFR Routine 06/20/2019 4:00 Results fo r this AM CULINARY ARTIST procedure are i n the results section. PHOSPHORUS LEVEL Routine 06/20/2019 4:00 Results for this AM CULINARY ARTIST procedure are i n the results section. MAGNESIUM LEVEL Routine 06/20/2019 4:00 Results for this AM CULINARY ARTIST procedure are i n the results section. BASIC METABOLIC PANEL Routine 06/20/2019 4:00 Re sults for this AM CULINARY ARTIST procedure are i n the results section. HEPATIC FUNCTION PANEL Routine 06/20/2019 4:00 R esults for this AM CULINARY ARTIST procedure are i n the results section. POC GLUCOSE Routine 06/19/2019 9:31 Results for this PM CULINARY ARTIST procedure are i n the results section. PROTEIN, URINE, RANDOM Routine 06/19/2019 7:06 R esults for this PM CULINARY ARTIST procedure are i n the results section. CREATININE LEVEL, URINE, Routine 06/19/2019 7:06 Results for this RANDOM PM CULINARY ARTIST procedure are i n the results section. POC GLUCOSE Routine 06/19/2019 4:08 Results for this PM CULINARY ARTIST procedure are i n the results section. POC GLUCOSE Routine 06/19/2019 12:34 Results for this PM CULINARY ARTIST procedure are i n the results section. POC GLUCOSE Routine 06/19/2019 7:42 Results for this AM CULINARY ARTIST procedure are i n the results section. ESTIMATED GFR Routine 06/19/2019 12:00 Results fo r this AM CULINARY ARTIST procedure are i n the results section. PHOSPHORUS LEVEL Routine 06/19/2019 12:00 Results for this AM CULINARY ARTIST procedure are i n the results section. MAGNESIUM LEVEL Routine 06/19/2019 12:00 Results for this AM CULINARY ARTIST procedure are i n the results section. BASIC METABOLIC PANEL Routine 06/19/2019 12:00 Re sults for this AM CULINARY ARTIST procedure are i n the results section. HEPATIC FUNCTION PANEL Routine 06/19/2019 12:00 R esults for this AM CULINARY ARTIST procedure are i n the results section. ANTI MITOCHONDRIA SCREEN Routine 06/19/2019 12:00 Results for this AM CULINARY ARTIST procedure are i n the results section. ANTI SMOOTH MUSCLE AB Routine 06/19/2019 12:00 Re sults for this SCREEN AM CULINARY ARTIST procedure are i n the results section. POC GLUCOSE Routine 06/18/2019 9:10 Results for this PM CULINARY ARTIST procedure are i n the results section. POC GLUCOSE Routine 06/18/2019 4:07 Results for this PM CULINARY ARTIST procedure are i n the results section. POC GLUCOSE Routine 06/18/2019 11:14 Results for this AM CULINARY ARTIST procedure are i n the results section. POC GLUCOSE Routine 06/18/2019 7:29 Results for this AM CULINARY ARTIST procedure are i n the results section. URINE CULTURE Routine 06/18/2019 7:24 Results fo r this AM CULINARY ARTIST procedure are i n the results section. URINALYSIS SCREEN AND Routine 06/18/2019 5:30 Re sults for this MICROSCOPY, WITH REFLEX AM CULINARY ARTIST proc edure are in TO CULTURE the results section. AMMONIA LEVEL Routine 06/18/2019 5:00 Results fo r this AM CULINARY ARTIST procedure are i n the results section. HEPATITIS B SURFACE AB, Routine 06/18/2019 5:00 Results for this QUANTITATIVE AM CULINARY ARTIST procedure are i n the results section. HC COMPLETE BLD COUNT Routine 06/18/2019 5:00 Re sults for this W/AUTO DIFF AM CULINARY ARTIST procedure are i n the results section. PROTHROMBIN TIME WITH Routine 06/18/2019 5:00 Re sults for this INR AM CULINARY ARTIST procedure are i n the results section. ESTIMATED GFR Routine 06/18/2019 4:00 Results fo r this AM CULINARY ARTIST procedure are i n the results section. GGT Routine 06/18/2019 4:00 Results for this AM CULINARY ARTIST procedure are i n the results section. ANNE Routine 06/18/2019 4:00 Results for this AM CULINARY ARTIST procedure are i n the results section. ALPHA-1 ANTITRYPSIN Routine 06/18/2019 4:00 Resu lts for this LEVEL AM CULINARY ARTIST procedure are i n the results section. ALPHA FETOPROTEIN Routine 06/18/2019 4:00 Result s for this AM CULINARY ARTIST procedure are i n the results section. CERULOPLASMIN LEVEL Routine 06/18/2019 4:00 Resu lts for this AM CULINARY ARTIST procedure are i n the results section. HEPATITIS C ANTIBODY Routine 06/18/2019 4:00 Res ults for this AM CULINARY ARTIST procedure are i n the results section. HEPATITIS B SURFACE Routine 06/18/2019 4:00 Resu lts for this ANTIGEN AM CULINARY ARTIST procedure are i n the results section. HEPATITIS B SURFACE Routine 06/18/2019 4:00 Resu lts for this ANTIBODY AM CULINARY ARTIST procedure are i n the results section. HEPATITIS B CORE Routine 06/18/2019 4:00 Results for this ANTIBODY TOTAL AM CULINARY ARTIST procedure are in the results section. HEPATITIS B CORE Routine 06/18/2019 4:00 Results for this ANTIBODY IGM AM CULINARY ARTIST procedure are i n the results section. HEPATITIS A ANTIBODY IGM Routine 06/18/2019 4:00 Results for this AM CULINARY ARTIST procedure are i n the results section. PHOSPHORUS LEVEL Routine 06/18/2019 4:00 Results for this AM CULINARY ARTIST procedure are i n the results section. MAGNESIUM LEVEL Routine 06/18/2019 4:00 Results for this AM CULINARY ARTIST procedure are i n the results section. BASIC METABOLIC PANEL Routine 06/18/2019 4:00 Re sults for this AM CULINARY ARTIST procedure are i n the results section. HEPATIC FUNCTION PANEL Routine 06/18/2019 4:00 R esults for this AM CULINARY ARTIST procedure are i n the results section. POC GLUCOSE Routine 06/17/2019 9:17 Results for this PM CULINARY ARTIST procedure are i n the results section. POC GLUCOSE Routine 06/17/2019 5:07 Results for this PM CULINARY ARTIST procedure are i n the results section. US ABDOMEN COMPLETE Routine 06/17/2019 4:48 Resu lts for this PM CULINARY ARTIST procedure are i n the results section. US ABDOMINAL DOPPLER Routine 06/17/2019 4:48 Res ults for this PM CULINARY ARTIST procedure are i n the results section. US RENAL Routine 06/17/2019 2:26 Results for this PM CULINARY ARTIST procedure are i n the results section. POC GLUCOSE Routine 06/17/2019 11:38 Results for this AM CULINARY ARTIST procedure are i n the results section. POC GLUCOSE Routine 06/17/2019 8:22 Results for this AM CULINARY ARTIST procedure are i n the results section. TISSUE TRANSGLUTAMINASE Routine 06/17/2019 4:53 Results for this AB, IGA AM CULINARY ARTIST procedure are i n the results section. ESTIMATED GFR Routine 06/17/2019 4:53 Results fo r this AM CULINARY ARTIST procedure are i n the results section. PHOSPHORUS LEVEL Routine 06/17/2019 4:53 Results for this AM CULINARY ARTIST procedure are i n the results section. MAGNESIUM LEVEL Routine 06/17/2019 4:53 Results for this AM CULINARY ARTIST procedure are i n the results section. BASIC METABOLIC PANEL Routine 06/17/2019 4:53 Re sults for this AM CULINARY ARTIST procedure are i n the results section. CELIAC DISEASE REFLEXIVE Routine 06/17/2019 4:53 Results for this CASCADE AM CULINARY ARTIST procedure are i n the results section. POC GLUCOSE Routine 06/17/2019 12:44 Results for this AM CULINARY ARTIST procedure are i n the results section. POC GLUCOSE Routine 06/16/2019 9:02 Results for this PM CULINARY ARTIST procedure are i n the results section. POC GLUCOSE Routine 06/16/2019 4:27 Results for this PM CULINARY ARTIST procedure are i n the results section. POC GLUCOSE Routine 06/16/2019 12:07 Results for this PM CULINARY ARTIST procedure are i n the results section. ECG 12-LEAD Routine 06/16/2019 11:18 Results for this AM CULINARY ARTIST procedure are i n the results section. POC GLUCOSE Routine 06/16/2019 7:25 Results for this AM CULINARY ARTIST procedure are i n the results section. ESTIMATED GFR Routine 06/16/2019 4:00 Results fo r this AM CULINARY ARTIST procedure are i n the results section. PHOSPHORUS LEVEL Routine 06/16/2019 4:00 Results for this AM CULINARY ARTIST procedure are i n the results section. MAGNESIUM LEVEL Routine 06/16/2019 4:00 Results for this AM CULINARY ARTIST procedure are i n the results section. BASIC METABOLIC PANEL Routine 06/16/2019 4:00 Re sults for this AM CULINARY ARTIST procedure are i n the results section. POC GLUCOSE Routine 06/15/2019 8:49 Results for this PM CULINARY ARTIST procedure are i n the results section. POC GLUCOSE Routine 06/15/2019 4:31 Results for this PM CULINARY ARTIST procedure are i n the results section. FECAL CALPROTECTIN Routine 06/15/2019 4:30 Resul ts for this PM CULINARY ARTIST procedure are i n the results section. SPIROMETRY, DIFFUSION, Routine 06/15/2019 2:29 Tachycardia R esults for this LUNG VOLUMES PM CULINARY ARTIST procedure are i n the results section. POC GLUCOSE Routine 06/15/2019 12:27 Results for this PM CULINARY ARTIST procedure are i n the results section. US CAROTID DUPLEX Routine 06/15/2019 11:31 Result s for this BILATERAL AM CULINARY ARTIST procedure are i n the results section. POC GLUCOSE Routine 06/15/2019 7:24 Results for this AM CULINARY ARTIST procedure are i n the results section. ESTIMATED GFR Routine 06/15/2019 3:38 Results fo r this AM CULINARY ARTIST procedure are i n the results section. PHOSPHORUS LEVEL Routine 06/15/2019 3:38 Results for this AM CULINARY ARTIST procedure are i n the results section. MAGNESIUM LEVEL Routine 06/15/2019 3:38 Results for this AM CULINARY ARTIST procedure are i n the results section. BASIC METABOLIC PANEL Routine 06/15/2019 3:38 Re sults for this AM CULINARY ARTIST procedure are i n the results section. HC COMPLETE BLD COUNT Routine 06/15/2019 3:38 Re sults for this W/AUTO DIFF AM CULINARY ARTIST procedure are i n the results section. POC GLUCOSE Routine 06/14/2019 9:02 Results for this PM CULINARY ARTIST procedure are i n the results section. CT HEAD WO CONTRAST STAT 06/14/2019 8:31 Resu lts for this PM CULINARY ARTIST procedure are i n the results section. POC GLUCOSE Routine 06/14/2019 4:31 Results for this PM CULINARY ARTIST procedure are i n the results section. POC GLUCOSE Routine 06/14/2019 3:36 Results for this PM CULINARY ARTIST procedure are i n the results section. POC GLUCOSE Routine 06/14/2019 12:06 Results for this PM CULINARY ARTIST procedure are i n the results section. POC GLUCOSE Routine 06/14/2019 8:38 Results for this AM CULINARY ARTIST procedure are i n the results section. GASTROINTESTINAL PANEL Routine 06/14/2019 5:48 R esults for this AM CULINARY ARTIST procedure are i n the results section. T4, FREE Routine 06/14/2019 5:14 Results for this AM CULINARY ARTIST procedure are i n the results section. THYROID STIMULATING Routine 06/14/2019 5:14 Resu lts for this HORMONE AM CULINARY ARTIST procedure are i n the results section. LIPID PANEL Routine 06/14/2019 5:14 Results for this AM CULINARY ARTIST procedure are i n the results section. HEMOGLOBIN A1C Routine 06/14/2019 5:14 Results f or this AM CULINARY ARTIST procedure are i n the results section. MANUAL DIFFERENTIAL Routine 06/14/2019 4:59 Resu lts for this AM CULINARY ARTIST procedure are i n the results section. ESTIMATED GFR Routine 06/14/2019 4:59 Results fo r this AM CULINARY ARTIST procedure are i n the results section. BASIC METABOLIC PANEL Routine 06/14/2019 4:59 Re sults for this AM CULINARY ARTIST procedure are i n the results section. CBC WITH PLATELET AND Routine 06/14/2019 4:59 Re sults for this DIFFERENTIAL AM CULINARY ARTIST procedure are i n the results section. POC GLUCOSE Routine 06/13/2019 9:19 Results for this PM CULINARY ARTIST procedure are i n the results section. POC GLUCOSE Routine 06/13/2019 4:35 Results for this PM CULINARY ARTIST procedure are i n the results section. POC GLUCOSE Routine 06/13/2019 11:50 Results for this AM CULINARY ARTIST procedure are i n the results section. POC GLUCOSE Routine 06/13/2019 8:04 Results for this AM CULINARY ARTIST procedure are i n the results section. POC GLUCOSE Routine 06/13/2019 8:02 Results for this AM CULINARY ARTIST procedure are i n the results section. HC COMPLETE BLD COUNT Routine 06/13/2019 5:30 Re sults for this W/AUTO DIFF AM CULINARY ARTIST procedure are i n the results section. ESTIMATED GFR Routine 06/13/2019 4:00 Results fo r this AM CULINARY ARTIST procedure are i n the results section. BASIC METABOLIC PANEL Routine 06/13/2019 4:00 Re sults for this AM CULINARY ARTIST procedure are i n the results section. TROPONIN Timed 06/13/2019 1:36 Results for this AM CULINARY ARTIST procedure are i n the results section. TROPONIN Timed 06/12/2019 10:55 Results for this PM CULINARY ARTIST procedure are i n the results section. GASTROINTESTINAL PANEL Routine 06/12/2019 10:05 R esults for this PM CULINARY ARTIST procedure are i n the results section. INFLUENZA ANTIGEN Routine 06/12/2019 9:15 Result s for this PM CULINARY ARTIST procedure are i n the results section. XR CHEST 1 VW PORTABLE STAT 06/12/2019 8:55 R esults for this PM CULINARY ARTIST procedure are i n the results section. ECG ED PRELIMINARY Routine 06/12/2019 7:50 Resul ts for this INTERPRETATION PM CULINARY ARTIST procedure are in the results section. URINALYSIS SCREEN AND STAT 06/12/2019 7:49 Re sults for this MICROSCOPY, WITH REFLEX PM CULINARY ARTIST proc edure are in TO CULTURE the results section. ESTIMATED GFR STAT 06/12/2019 7:49 Results fo r this PM CULINARY ARTIST procedure are i n the results section. PROTHROMBIN TIME WITH STAT 06/12/2019 7:49 Re sults for this INR PM CULINARY ARTIST procedure are i n the results section. PARTIAL THROMBOPLASTIN STAT 06/12/2019 7:49 R esults for this TIME (PTT) PM CULINARY ARTIST procedure are i n the results section. B NATRIURETIC PEPTIDE STAT 06/12/2019 7:49 Re sults for this PM CULINARY ARTIST procedure are i n the results section. TROPONIN STAT 06/12/2019 7:49 Results for this PM CULINARY ARTIST procedure are i n the results section. COMPREHENSIVE METABOLIC STAT 06/12/2019 7:49 Results for this PANEL PM CULINARY ARTIST procedure are i n the results section. HC COMPLETE BLD COUNT STAT 06/12/2019 7:49 Re sults for this W/AUTO DIFF PM CULINARY ARTIST procedure are i n the results section. URINE CULTURE STAT 06/12/2019 7:49 Results fo r this PM CULINARY ARTIST procedure are i n the results section. ECG 12-LEAD STAT 06/12/2019 7:42 Results for this PM CULINARY ARTIST procedure are i n the results section. after 04/22/[address] Chest Wo Contrast (12/28/2019 9:29 [...] Mediastinum and catherine: No mass or hemat maihsa. Lymph nodes: Some prominent mediastinal lymph nodes [...] repr esent some subcutaneous bruising for cellulitis. [facility]-[id number] Procedure Note Hm Interface, Radiology Results Incoming [...] may represent some subcutaneous bruising for cellulitis. [facility]-[id number] Performing Organization Address City/State/ZIP Code Phon e Number [facility] [address] [place] [address] CT Head Wo Contrast (12/28/2019 9:28 PM CDT)Only the most recent of2 results within the time period is included. Specimen Narrative Performed At EXAM: CT HEAD WO CONTRAST [facility] CLINICAL HISTORY: headache TECHNIQUE: Noncontrast enhanced images of the brain we re obtained from the skull base to the vertex. Both soft tissue and bon e reconstruction algorithms were performed. CT scans are performed using radiation dose reduction techniques (iterative reconstruction and/or automated exposure co ntrol). Technical factors are evaluated and adjusted to ensure appropria te moderation of exposure. Automated dose farm management professor nology is applied to adjust radiation exposure while achievi ng a diagnostic quality image. COMPARISON: 06/14/2019. FINDINGS: The wagner-white matter differentiation is preserved and without evidence of acute territorial infarction. 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 Minimal scattered subcortical and [...] ensure appropriate moderation of exposure. Automated dose farm management professor nology is applied to adjust radiation exposure while achieving a diagnostic quality image. COMPARISON: 06/14/2019. FINDINGS: The wagner-white matter differentiation is preserved and without evidence of acute territorial infarction. 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 Minimal scattered subcortical and [...] acute intracranial abnormality. [id number] Performing Organization Address [facility] Phon e Number [facility] [address] [place] [address] XR Chest 1 Vw Portable (12/28/2019 8:55 PM CDT)Only the most recent of2 results within the time period is included. Specimen Narrative Performed At EXAMINATION: XR CHEST 1 VW PORTABLE [facility] CLINICAL HISTORY: sob COMPARISON: 06/12/2019. IMPRESSION: Right central venous catheter terminates over the right atrium. Low lung volumes. Vascular crowding and/or congestion. No focal consolidation. No pleural effusion or pneumothorax. The cardiomediastinal silhouette is norm al. No acute osseous abnormalities. [facility]-[id number] Procedure Note Hm Interface, Radiology Results Incoming - 12/28/2019 8:59 PM CDT EXAMINATION: XR CHEST 1 VW PORTABLE CLINICAL HISTORY: sob COMPARISON: 06/12/2019. IMPRESSION: Right central venous catheter terminates over the right atrium. Low lung volumes. Vascular crowding and/ or congestion. No focal consolidation. No pleural effusion or pneumothorax. The cardiomediastinal silhouette is norm al. No acute osseous abnormalities. [facility]-[id number] Performing Organization Address [facility] Phon e Number [facility] [address] [place] [address] ECG ED Preliminary Interpretation - Not an Order (12/28/2019 8:54 PM CDT)Only the most recent of2 resultswithin the time period is included. Narrative Performed At Kelvin Palomino MD 12/30/2019 2:41 AM ECG ED Preliminary Interpretation - Not an Order Performed by: Kelvin Palomino MD Authorized by: Kelvin Palomino MD ECG reviewed by ED Physician in the abse nce of a precision instrument maker and repairer: yes Interpretation: Interpretation: abnormal Rate: ECG rate: 81 ECG rate assessment: normal Rhythm: Rhythm: sinus rhythm Conduction: Conduction: abnormal Abnormal conduction: complete RBBB Estimated GFR (12/28/2019 7:16 PM CDT)Only the most recent of37 resultswithin the time period is included. Estimated GFR 17 (A) mL/min/1.73 [facility] Comment: HOSPITAL Catergory Units Interpretation G1 >=90 [...] Organization Address City/State/ZIP Code Phon e Number [facility] DEPARTMENT OF PATHOLOGY AND [address] [place], [place] [phone] GENOMIC MEDICINE [facility] [address] [place] [address] Troponin (12/28/2019 7:16 PM CDT)Only the most recent of5 resultswithin the time period is included. Troponin 0.016 0.000 - 0.040 [facility] Comment: ng/mL HOSPITAL In patients suspected of [...] 0.020 ng/mL Specimen Blood Performing Organization Address City/[facility] Code Phon e Number [facility] DEPARTMENT OF PATHOLOGY AND [address] [place], [place] [address] GENOMIC MEDICINE [facility] [address] [place] [address] CBC with platelet and differential (12/28/2019 7:16 PM CDT)Only the most recent of16 resultswithin the time period is included. WBC 5.65 4.50 - 11.00 [facility] k/uL [facility] RBC 3.75 (L) 4.40 - 6.00 [facility] m/uL [facility] HGB 12.7 (L) 14.0 - 18.0 [facility] g/dL [facility] HCT 36.6 (L) 41.0 - 51.0 % [facility] MCV 97.6 82.0 - 100.0 [facility] MCH 33.9 27.0 - 34.0 pg [facility] MCHC 34.7 31.0 - 37.0 [facility] g/dL [facility] RDW - SD 50.0 37.0 - 55.0 fL [facility] MPV 12.9 8.8 - 13.2 fL [facility] Platelet count 152 150 - 400 k/uL [facility] Nucleated RBC 0.00 /100 WBC [facility] Neutrophils 65.7 39.0 - 69.0 % [facility] Lymphocytes 24.6 (L) 25.0 - 45.0 % [facility] Monocytes 5.3 0.0 - 10.0 % [facility] Eosinophils 3.0 0.0 - 5.0 % [facility] Basophils 0.7 0.0 - 1.0 % [facility] Immature granulocytes 0.7Comment: 0.0 - 1.0 % [facility] "Immature HOSPITAL granulocytes" (promyelocytes , myelocytes, metamyelocytes ) Specimen Blood Performing Organization Address City/[facility] Phon e Number [facility] DEPARTMENT OF PATHOLOGY AND [address] [place], [place] [address] [facility] [address] [place] [phone] B natriuretic peptide (12/28/2019 7:16 PM CDT)Only the most recent of2 results within the time period is included. Pathologist Sig nature BNP 318 (H) 0 - 100 pg/mL [facility] Specimen Blood Performing Organization Address City/[facility] Phon e Number [facility] DEPARTMENT OF PATHOLOGY AND [address] [place] [phone] [facility] [address] [place] [address] Comprehensive metabolic panel (12/28/2019 7:16 PM CDT)Only the most recent of2 resultswithin the time period is included. Sodium 139 135 - 148 [facility] mEq/L [facility] Potassium 5.3 (H) 3.5 - 5.0 [facility] mEq/L [facility] Chloride 97 (L) 98 - 112 [facility] mEq/L [facility] CO2 27 24 - 31 mEq/L [facility] Anion gap 15@ANIO 7 - 15 mEq/L [facility] BUN 27 (H) 6 - 20 mg/dL [facility] Creatinine 3.84 (H) 0.70 - 1.20 [facility] mg/dL [facility] Glucose 252 (H) 65 - 99 mg/dL [facility] Calcium 8.8 8.3 - 10.2 [facility] mg/dL [facility] Protein 6.9 6.3 - 8.3 [facility] Comment: g/dL HOSPITAL - 4.6-7.0 g/dL 1 week 4.4-7.6 g/dL 7 months-1year 5.1-7.3 g/dL 1-2 years 5.6-7.5 g/dL >3 years 6.0-8.0 g/dL 18-150 6.3-8.3 g/dL Albumin 2.7 (L) 3.5 - 5.0 [facility] g/dL [facility] A/G ratio 0.6 (L) 0.7 - 3.8 [facility] Alkaline phosphatase 175 (H) 40 - 129 U/L [facility] AST 35 10 - 50 U/L [facility] ALT 29 5 - 50 U/L [facility] Total bilirubin 0.3 0.0 - 1.2 [facility] mg/dL HOSPITAL Specimen Blood Performing Organization Address City/[facility]/ZIP [facility] Phon e Number [facility] DEPARTMENT OF PATHOLOGY AND [address] [place] [address] [phone] [address] ECG 12 lead (12/28/2019 6:32 PM CDT)Only the most recent of5 resultswithin the time period is included. Pathologist Sig nature Ventricular rate 81 [facility] Atrial rate 81 [facility] NE interval 134 [facility] QRSD interval 136 [facility] QT interval 440 [facility] QTC interval 511 [facility] P axis 1 37 [facility] QRS axis 1 114 [facility] T wave axis 5 [facility] EKG impression Normal sinus rhythm-Right bu ndle branch block-Left posterior fascicular block-^^^ Bifascicular block ^^^-Abnormal ECG-In automated comparison with ECG of 28-JUN-2019 09:41,-Left posterior fascicular blo [facility] MUSE ck is now seen-Electronically Signed By Nayana BOSS, [facility] ([id number]) on 12/28/2019 11:33:30 PM Specimen Narrative Performed At This result has an attachment that is no t available. Performing Organization Address [facility] Phon e Number [facility] MUSE [address] [place] [phone] POC glucose (07/16/2019 12:29 PM CDT)Only the most recent of156 resultswithin the time period is included. Pathologist [facility] POC glucose 253 (H) 65 - 99 mg/dL [facility] Comment: HOSPITAL Cio Name: Ney Lao Device ID: [id number] Chartable: H Notified RN Specimen Blood Performing Organization Address City/[facility]/ZIP Code Phon e Number [facility] DEPARTMENT OF PATHOLOGY AND [address] [place] [address] [phone] [address] Phosphorus level (07/16/2019 4:00 AM CDT)Only the most recent of31 results within the time period is included. Pathologist Sig nature Phosphorus 4.3 2.4 - 4.5 mg/dL [facility] L Specimen Blood Performing Organization Address City/[facility] Phon e Number [facility] DEPARTMENT OF PATHOLOGY AND [address] [place] [address] [phone] [address] Basic metabolic panel (07/16/2019 4:00 AM CDT)Only the most recent of35 results within the time period is included. Pathologist Sig nature Sodium 142 135 - 148 mEq/L [facility] Potassium 4.3 3.5 - 5.0 mEq/L [facility] Chloride 105 98 - 112 mEq/L [facility] CO2 27 24 - 31 mEq/L [facility] Anion gap 10@ANIO 7 - 15 mEq/L [facility] BUN 46 (H) 6 - 20 mg/dL [facility] Creatinine 4.61 (H) 0.70 - 1.20 mg/dL [facility] Glucose 189 (H) 65 - 99 mg/dL [facility] Calcium 8.7 8.3 - 10.2 mg/dL [facility] Specimen Blood Performing Organization Address [facility] Phon e Number [facility] DEPARTMENT OF PATHOLOGY AND [address] [place] [address] [phone] [address] Magnesium level (07/14/2019 5:10 AM CDT)Only the most recent of29 resultswithin the time period is included. Pathologist Sig nature Magnesium 1.9 1.6 - 2.6 mg/dL [facility] L Specimen Blood Performing Organization Address City/[facility] Phon e Number [facility] DEPARTMENT OF PATHOLOGY AND [address] [place] [address] [phone] [address] Total iron binding capacity (07/10/2019 1:40 PM CDT) Pathologist Sig nature Iron level 72 59 - 158 ug/dL [facility] Iron binding capacity 298 200 - 400 ug/dL [facility] % Saturation 24.2 20.0 - 40.0 % [facility] Specimen Blood Performing Organization Address City/[facility] Phon e Number [facility] DEPARTMENT OF PATHOLOGY AND [address] [place] [address] [phone] [place] [id number] [place] [address] Ferritin level (07/10/2019 1:40 PM CDT) Pathologist Sig nature Ferritin level 214 30 - 400 ng/mL [facility] Specimen Blood Performing Organization Address City/[facility]/ZIP Code Phon e Number [facility] DEPARTMENT OF PATHOLOGY AND [address] [place] [address] [phone] [facility] [address] [place] [address] [place] Modified Barium Swallow (07/09/2019 1:51 PM [...] to Speech Pathology report for further details. [facility]-[id number] Dictated and approved by cath lab radiology technician/fellow: Marin Escamilla M.D. I, Adriana Morales MD, personally reviewed the images and resident's/fellow's findings and agree with the final report. Procedure Note [facility], Radiology Results Incoming - 07/09/2019 3:05 PM [...] to Speech Pathology report for further details. [facility]-[id number] Dictated and approved by radiology resid ent/fellow: Eugenia Escamilla M.D. I, Adriana Morales MD, personally review ed the images and resident's/fellow's findings and agree with the final report. Performing Organization Address City/State/ZIP Code Phon e Number [facility] [address] [place] [phone] Hepatic function panel (07/08/2019 4:00 AM CDT)Only the most recent of15 resultswithin the time period is included. Albumin 2.4 (L) 3.5 - 5.0 [facility] g/dL [facility] Total bilirubin <0.2 0.0 - 1.2 [facility] mg/dL [facility] Bilirubin direct <0.2 0.0 - 0.3 [facility] mg/dL [facility] Alkaline phosphatase 133 (H) 40 - 129 U/L [facility] Protein 6.9 6.3 - 8.3 [facility] Comment: g/dL HOSPITAL - 4.6-7.0 g/dL 1 week 4.4-7.6 g/dL 7 months-1year 5.1-7.3 g/dL 1-2 years 5.6-7.5 g/dL >3 years 6.0-8.0 g/dL 18-150 6.3-8.3 g/dL ALT 20 5 - 50 U/L [facility] AST 20 10 - 50 U/L [facility] Specimen Plasma specimen Performing Organization Address [facility] Phon e Number [facility] DEPARTMENT OF PATHOLOGY AND [address] [place], [place] [phone] 0 GENOMIC MEDICINE [address] [address] Hypersensitivity pneumonitis II (07/07/2019 5:30 PM CDT) Pathologist [facility] Aspergillus flavus None Detected None-Detec [facility] Comment: tin LAB Testing includes antibodies directed at Aspergillus fl avus, Aspergillus fumigatus #2, Aspergillus fumigatus #3, Saccharomonospora viridis, and Thermoactinomyces dory dus. Aspergillus fumigatus None Detected None-Detec [facility] #2 tin LAB Aspergillus fumigatus None Detected None-Detec [facility] #3 tin LAB Saccharomonospora None Detected None-[facility]ec [facility] viridis tin LAB Thermoactinomyces None Detected None-Detec [facility] candidus Comment: tin LAB Performed by [employer], [address] [place] [phone] [email or web address], Roberto Almaguer MD, Lab. Director Thermoactinomyces NOT PERFORMED WITH [facility] RE[facility] saccharii THIS PANEL LAB Specimen Serum Performing Organization Address [facility] Phon e Number [facility] [address] [place] [address] [facility] [address] [place] [address] Hypersensitivity pneumonitis I (07/07/2019 5:30 PM CDT) Aspergillus fumigatus None Detected None-Detec [facility] #1 tin LAB Aspergillus fumigatus None Detected None-Detec [facility] #6 tin LAB Aureobasidium pullulans None Detected None-Detec [facility] Comment: tin LAB Testing includes antibodies directed at Aureobasidium pullulans, Aspergillus fumigatus #1, Aspergillus fumigatus #6, Mi cropolyspora faeni, [place] Serum and Thermoactinomyces vulgaris #1. [place] serum None Detected None-Detec [facility] tin LAB Micropolyspora faeni None Detected None-Detec [facility] tin LAB Thermoactinomyces None Detected None-Detec [facility] vulgaris #1 Comment: tin LAB Performed by [employer], [address] [place] [phone] [email or web address], Roberto Almaguer MD, Lab. Director Specimen Serum Performing Organization Address [facility] Phon e Number [facility] [address] [place] [address] [facility] [address] [place] [address] Immunoglobulin G (07/07/2019 4:11 PM CDT) Pathologist Sig nature IgG 1,005 700 - 1,600 mg/dL [facility] Specimen Plasma specimen Performing Organization Address [facility] Phon e Number [facility] DEPARTMENT OF PATHOLOGY AND [address] [place] [address] [phone] GENOMIC MEDICINE [address] [address] SS-B antibody (07/07/2019 2:30 PM CDT) Sjogren's SS-B <0.2 0.0 - 0.9 [facility] antibody [facility] SS-B antibody Negative [facility] inter Comment: ZOROASTRIANISM SS-B/La antibody is seen in patients with Sjogre n syndrome, but may also be HOSPITAL positive with systemic lupus erythematosus (SLE), and systemic sclerosis. Specimen Serum Performing Organization Address [facility]/ZIP Code Phon e Number [facility] DEPARTMENT OF PATHOLOGY AND [address] [place] [address] [phone] [address] SS-A antibody (07/07/2019 2:30 PM CDT) Sjogren's SS-A <0.2 0.0 - 0.9 [facility] antibody [facility] SS-A antibody Negative [facility] interp Comment: ZOROASTRIANISM SS-A antibody is sensitive for Sjogren's syndrom e, but may also be positive HOSPITAL with systemic lupus erythematosus (SLE), and systemic sclerosis. Specimen Serum Performing Organization Address City/State/ZIP [facility] Phon e Number [facility] DEPARTMENT OF PATHOLOGY AND [address] [place] [address] [phone] [address] Scl-70 antibody (07/07/2019 2:30 PM CDT) Scleroderma SCL-70 <0.2 0.0 - 0.9 [facility] Ab [facility] Scl-70 antibody Negative [facility] interp Comment: ZOROASTRIANISM Anti-Scl-70 (topoisomerase I) antibodies are found in patients with HOSPITAL systemic sclerosis (SSc or scleroderma), and have been reported to be predictive of diffuse cutaneous involvement. Anti-Scl- 70 antibodies may also be present in patients with systemic lupus erythe matosus (SLE). Specimen Serum Performing Organization Address City/State/ZIP Code Phon e Number [facility] DEPARTMENT OF PATHOLOGY AND [address] [place] [address] [phone] [address] Centromere antibody (07/07/2019 2:30 PM CDT) Centromere <0.2 0.0 - 0.9 [facility] Centromere Negative [facility] antibody interp Comment: HOSPITAL Anti-centromere antibodies are found in patients with systemic sclerosis (SSc or scleroderma), especially for those with limite d cutaneous or CREST syndrome. Anti-centromere antibodies may also be found in patients with other rheumatic or connective tissue diseases. Specimen Serum Performing Organization Address City/State/ZIP Code Phon e Number [facility] DEPARTMENT OF PATHOLOGY AND [address] [place] [address] [phone] [address] DNA Ab screen (07/07/2019 2:30 PM CDT) Pathologist Sig nature DNA Ab screen Not Detected Not-Detected [facility] Specimen Blood Performing Organization Address City/[facility]/ZIP Code Phon e Number [facility] DEPARTMENT OF PATHOLOGY AND [address] [place], [place] [address] 0 [facility] [address] [place] [address] Anti-neutrophilic cytoplasmic Abs panel (07/07/2019 2:30 PM CDT) Pathologist Sig nature ANCA screen Negative Negative [facility] Specimen Blood Performing Organization Address City/[facility] Phon e Number [facility] DEPARTMENT OF PATHOLOGY AND [address] [place], [place] [address] 0 [facility] [address] [place] [address] [address] Cardiac Overread (07/06/2019 6:20 PM CDT) [...] City/State/ZIP Code Phon e Number [facility] [address] [place] [address] Cv cta coronary arteries w contrast and ffr if needed (07/06/2019 1:32 PM CDT) Specimen Narrative Performed At This result has an attachment that is no t available. [facility] Nuclear Cardiology and Card iac CT [address] [address] CTA Coronary Arteries R eport Pat.Name: PAOLA KWONG Pat.ID: [id number] .Date: 07/06/2019 Refer.MD: MILTON ELLINGTON MD Exam Time: 1:09:00 PM Study Type:C TA Coronary Arteries Height: 67in Weight: 212lb BSA: 2.07 m2 Age: 4 1965,53Y Sex: MALE BP: 151/83 HR: 54 bpm Nuclear Tech:Samina Beyer, RT(R)(CT) Pat. Stat.:Inpatient Tape Vol: 33.2, CPT - 4: CCTA w Thoracic Aorta (NonCongenital) [id number] Nuclear Event ID:[id number] Order ID: [id number] Reason for Study:Pre-Op CABG, CAD History / Clinical:Coronary artery disease, Diabetes, Hyperlipidemia, Hypertension, S/P PCI 07/2007, Liver cirrhosis/Hepatiti s C Procedures: CT Prospective (phases) Race: C SUMMARY: Technique: IV contrast was administered and sequential 0.[address] cuts were obtained through the chest using the Siemens Mobi-Moto moy Force CT scanner. Image post-processing consisting of multiplan ar and 3D reconstructions were performed using the [employer] workstation. Interactive image viewing, volumetric dis play [...] refer to the separate radiology report in [facility] for any additional non-cardiovascular findings. STUDY QUALITY The study quality is good. COMMENTS None. FINDINGS: Signed 07/06/2019 05:59 PM Sreedhar Walton MD Procedure Note Interface, Radiology Results In - 2019 5:59 PM CDT Nuclear Cardiology and Cardiac CT [address] [place] [address] CTA Coronary Arteri es Report Pat.Name: PAOLA KWONG Pat.I D: [id number] St.Date: 07/06/2019 Refer.MD: MILTON ELLINGTON MD Exam Time: 1:09:00 PM Study Type:CTA Coronary Arteries Height: 67in Weigh t: 212lb BSA: 2.07 m2 Age: 4 1965,53Y Sex: MALE BP: 151/83 HR: 54 bpm Nuclear Tech:Samina Beyer, RT(R)(CT) Pat. Stat.:Inpatient Tape Vol: 33.2, CPT - 4: CCTA w Thoracic Aorta (NonCo ngenital) [id number] Nuclear Event ID:[id number] Order ID: [id number] Reason for Study:Pre-Op CABG, CAD History / [...] and 3D reconstructions were performed using the [employer] workstation. Interactive image viewing, volumetric display and [...] to the separate radiology r eport in [facility] for any additional non-cardiovascular findings. STUDY QUALITY The study quality is good. COMMENTS None. FINDINGS: Signed 07/06/2019 05:59 PM Sreedhar Walton MD Performing Organization Address [facility]on [facility] Number [facility] [address] [place] [address] HIV Ag/Ab combination (07/06/2019 5:20 AM CDT) Pathologist [facility] HIV Ag/Ab combination Non-reactive Non-reactive [facility] Specimen Blood Performing Organization Address [facility] Phon e Number [facility] DEPARTMENT OF PATHOLOGY AND [address] [place] [address] [phone] [address] Prothrombin time with INR (07/06/2019 5:20 AM CDT)Only the most recent of3 resultswithin the time period is included. [facility] Prothrombin time 14.5 11.5 - 14.5 [facility] INR 1.1 [facility] Comment: [facility] International Normalized Ratio (INR) is a therapeu [facility] HOSPITAL monitoring tool for patients who are stable on oral anticoagulant therapy. An INR of 2.0-3.0 is suggested for deep vein thrombosis/pulmonary embolism. Specimen Blood Performing Organization Address [facility] Phon e Number [facility] DEPARTMENT OF PATHOLOGY AND [address] [place] [address] [phone] [address] Rheumatoid factor (07/06/2019 5:20 AM CDT) Pathologist Sig nature Rheumatoid factor <10 0 - 13 IU/mL [facility] Specimen Plasma specimen Performing Organization Address [facility] Phon e Number [facility] DEPARTMENT OF PATHOLOGY AND [address] [place], [place] [phone] [address] [address] C3 complement component (07/06/2019 5:20 AM CDT) Pathologist Sig nature C3 complement 133 90 - 180 mg/dL [facility] Specimen Plasma specimen Performing Organization Address [facility] Phon e Number [facility] DEPARTMENT OF PATHOLOGY AND [address] [place] [address] C4 complement component (07/06/2019 5:20 AM CDT) Pathologist Sig nature C4 complement 34 10 - 40 mg/dL [facility] Specimen Plasma specimen Performing Organization Address [facility] Phon e Number [facility] DEPARTMENT OF PATHOLOGY AND [address] [place] [address] Transthoracic Echocardiogram Complete, (w Contrast, Strain and 3D if needed) (07/05/2019 9:25 AM CDT) Specimen Narrative Performed At [facility] Echo cardiography Report [address] [place] [address] Pat.Name: PAOLA KWONG Pat.ID: [id number] .Date: 07/05/2019 Refer.MD: MILTON ELLINGTON MD Exam Time: 7:54:00 AM Study Type:R outine Echo Height: 67in Weight: 212lb BSA: 2.07 m2 Ag e: 1965,53Y Sex: MALE BP: 157/71 Sonogrphr: Audrey Bella RDCS, RVSPat. Stat.:Inpatien t Room: [facility] Study S tatus:Final Echo Event ID:[id number] Order ID: [id number] Reason for Study:Chest pain, suspected c ardiac [...] PA systolic pressure. MEASUREMENTS: 2D Parasternal Long [place] Ao An 2 cm LVPWd 1.5 cm [...] - 2019 10:49 AM CDT Echocardiography Report [address] [place] [address] Pat.Name: PAOLA KWONG Pat.I D: [id number] St.Date: 07/05/2019 Refer.MD: MILTON ELLINGTON MD Exam Time: 7:54:00 AM Study Type:Routine Echo Height: 67in Weigh t: 212lb BSA: 2.07 m2 Age: 6 1965,53Y Sex: MALE BP: 157/71 Sonogrphr: Audrey Bella RDCS, RVSPat. Stat.:Inpatient Room: [facility] Study Status:Final Echo Event ID:[id number] Order ID: [id number] Reason for Study:Chest pain, suspected c ardiac [...] PA systolic pressure. MEASUREMENTS: 2D Parasternal Long [place] Ao An 2 cm LVPW d 1.5 [...] Jo Ann Kraus MD Performing Organization Address City/[facility]/ZIP Code Phon e Number [facility] [address] [place] [address] Vancomycin level, random (07/05/2019 5:14 AM CDT)Only the most recent of8 resultswithin the time period is included. Pathologist Sig nature Vancomycin, random 11.9 ug/mL [facility] ITAL Specimen Serum Performing Organization Address City/[facility]/ZIP Code Phon e Number [facility] DEPARTMENT OF PATHOLOGY AND [address] [place], [place] [address] GENOMIC MEDICINE [facility] [address] [place] [address] VENIPUNC NEED PHYS SKILL,DX OR RX (07/02/2019 2:59 PM CULINARY ARTIST) Narrative Performed At Estela Padilla RN 07/02/2019 3:03 PM Midline Date/Time: 07/02/2019 2:59 PM Performed by: Kaykay Rain Authorized by: Milton Ellington Sr., MD Consent: Consent obtained: Verbal Consent given by: Patient Risks discussed: arterial puncture, incorrect place ment, nerve damage, infection, bleeding, superficial thrombu s and deep vein thrombus Alternatives discussed: No treatment, delayed cathy atment and alternative treatment [place] protocol: Procedure explained and questions ans wered [...] 4.5. 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 Location: Right basilic Device Type: Non-valved Catheter size: 4 Fr Catheter to vein ratio: 31% Line Characteristics: Catheter Brand: BioFlo Midline External Catheter Length (cm): 0 Internal Catheter Length (cm): 10 Total Catheter Length (cm): 10 Catheter Lot Number: [id number] Catheter Expiration Date: 12/26/2020 Procedure Details: Landmarks [...] complications Vancomycin level, trough (07/01/2019 2:30 PM CULINARY ARTIST) Vancomycin, 23.0 (HH) 10.0 - 20.0 [facility] trough Comment: ug/mL HOSPITAL Therapeutic Ranges: Peak 30.0 - 40.0 ug/mL Trough 10.0 - 20.0 ug/mL Specimen Serum Performing Organization Address City/[facility] Phon e Number [facility] DEPARTMENT OF PATHOLOGY AND [address] [place] [phone] GENOMIC MEDICINE [address] [address] Surgical pathology request (06/30/2019 11:36 AM CULINARY ARTIST) [facility] DEPARTMENT OF PATHOLOGY AND GENOMIC MEDICINE Surgical pathology See link below [facility] DEPARTMENT OF report for PDF Lab PATHOLOGY AND Report GENOMIC MEDICINE Result status This is Final [facility] DEPARTMENT OF Report for PATHOLOGY AND [id number] GENOMIC MEDICINE Specimen Performing Organization Address City/[facility] Phon e Number [facility] DEPARTMENT OF PATHOLOGY AND [address] [place] [phone] GENOMIC MEDICINE IR Transjugular Liver Biopsy (06/30/2019 9:39 AM CULINARY ARTIST) Specimen Narrative Performed At Performing Radiologist EMERY Lauren MD Assistants None Anesthesia Type Moderate sedation was administered by the procedure nu rse and monitored by the procedure physician for a datr-hm-qyxb sedation time of 20 minutes. Lidocaine 1% [...] atrial pressure measures were then obtained. A 5-[place] Citizen multipurpose catheter was advanced over the g uidewire and used to select the right hepatic vein. A CO2 right hepatic venogram was performed. Pressure measure ments were also obtained in both the free and wedge positions. The 9-F rench vascular sheath was then advanced into the right hepatic vein. The transjugular liver biopsy system was advanced through the 9-[place] Citizen vascular sheath, and multiple 18-gauge core liver biopsy specimens were obtained and submitted to pathology. Th e transjugular liver biopsy system and 9-[place] Citizen vascular sheath were then removed from the [...] hepatic: 11 mmHg Wedge hepatic: 15 mmHg [facility]-[id number] Procedure Note Hm Interface, Radiology Results Incoming - 06/30/2019 4:50 PM CULINARY ARTIST Performing Radiologist Vamshi Lauren MD Assistants None Anesthesia Type Moderate sedation was administered by e procedure nurse and monitored by the procedure physician for a ppwy-ie-swqx sedation time of 20 minutes. Lidocaine 1% [...] into the inferior vena cava. A long 9-[place] Citizen vascular sheath was then placed,and adva nced over the guidewire into the right atrium. Right atrial pressure measures were then obtained. A 5-[place] Citizen multipurpose catheter was advanced over the guidewire and used to select the right hepatic vein. A CO2 right hepatic venogram was performed. Pr essure measurements were also obtained in both the free and wedge positions. The 9-[place] Citizen vascular sheath was then advanced into the right hepatic vein. The transjugular liver biopsy system was advanced through the 9-[place] Citizen vascular sheath, and multiple 18-gauge core liver biopsy specimens were obtained and submitted to pathology. The transjugular liver biopsy system and 9-[place] Citizen vascular sheath were then removed from the [...] hepatic: 11 mmHg Wedge hepatic: 15 mmHg [facility]-[id number] Performing Organization Address City/State/ZIP Code Phon e Number [facility] [address] [place] [address] IR Tunneled Dialysis Catheter Placement (06/23/2019 10:03 AM CULINARY ARTIST) Specimen Narrative Performed At PERFORMING RADIOLOGIST: CONI Petersen MD ASSISTANTS: None. ANESTHESIA TYPE: Moderate sedation was administered by the procedure nu rse and monitored by the procedure physician for a total bxac-ym-hset se dation time of 8 minutes. Lidocaine [...] PLAN: -Catheter is ready for immediate use. [facility]-[id number] Procedure Note Hm Interface, Radiology Results Incoming - 06/24/2019 7:31 AM CULINARY ARTIST PERFORMING RADIOLOGIST: Will Petersen MD ASSISTANTS: None. ANESTHESIA TYPE: Moderate sedation was administered by [facility] and monitored by the procedure physician for a total iixa-vk-ikpg sedation time of 8 minutes. Lidocaine 1% [...] PLAN: -Catheter is ready for immediate use. [id number] Performing Organization Address City/State/ZIP Code Phon e Number [facility] [address] [place] [address] XR Abdomen 1 Vw Portable (06/21/2019 4:08 PM CULINARY ARTIST) Specimen Narrative Performed At EXAMINATION: XR ABDOMEN [...] are unremarkable. The lung bases are clear. [id number] Procedure Note Interface, Radiology Results Incoming - 06/21/2019 6:05 PM CULINARY ARTIST EXAMINATION: XR ABDOMEN 1 VW PORTABLE CLINICAL [...] are unremarkable. The lung bases are clear. [id number] Performing Organization Address City/State/ZIP Code [facility] e Number HM [facility] [address] [place] [address] Aerobic culture (06/20/2019 5:32 PM CULINARY ARTIST) Aerobic culture Klebsiella pneumoniae GONZALEZ BRAUNIS T isolate [facility] The performance characteristics of this assay on this isolate were validated by the Microbiology Laboratory at [facility]. This source has not been approve d [...] were validated by the Microbiology Laboratory at [facility]. This source has not been approve d [...] were validated by the Microbiology Laboratory at [facility]. This source has not been approved by the U.S. Food and Drug Administration. The results are not intended to be used as the sole means for clinical win gnosis or patient management. The Microbiology Laboratory is authorized under the clinical Laboratory Improvement Amendments of 1988 (CLIA-88) to perform high complexit y testing. Aerobic culture Klebsiella pneumoniae GONAZLEZ BRAUNIS T isolate [facility] The performance characteristics of this assay on this isolate were validated by the Microbiology Laboratory at [facility]. This source has not been approve d by the U.S. Food and Drug Administration. The results are n ot intended to be used as the sole means for clinical win gnosis or patient management. The Microbiology Laboratory i s authorized under the clinical Laboratory Improvement Amendments of 1988 (CLIA-88) to perform high complexit y testing. (A) Aerobic culture Citrobacter freundii complex GONZALEZ [place] [facility] isolate [facility] The performance characteristics of this assay on this isolate were validated by the Microbiology Laboratory at [facility]. This source has not been approve d [...] mcg/mL: S usceptible complex Performing Organization Address City/[facility] Phon e Number [facility] DEPARTMENT OF PATHOLOGY AND [address] [place] [address] Gram stain (06/20/2019 5:32 PM CULINARY ARTIST) Gram stain isolate Rare WBC's [facility] Many Gram negative rods HOSPITAL Rare Gram positive cocci in pairs Comment: Specimen Information Specimen Source: Drainage Specimen Site: Not otherwise specified Specimen Drainage - Not otherwise specified Performing Organization Address City/[facility] Phon e Number [facility] DEPARTMENT OF PATHOLOGY AND [address] [place], [place] [address] [address] Protein, urine, random (06/19/2019 7:06 PM CULINARY ARTIST) Pathologist Sig nature Protein, urine random 584 mg/dL [facility] Specimen Urine Performing Organization Address City/[facility] Phon e Number [facility] DEPARTMENT OF PATHOLOGY AND [address] [place] [address] [phone] [address] Creatinine level, urine, random (06/19/2019 7:06 PM CULINARY ARTIST) Pathologist Sig nature Creatinine, urine, 99 mg/dL [facility] Specimen Urine Performing Organization Address City/[facility] Phon e Number [facility] DEPARTMENT OF PATHOLOGY AND [address] [place] [address] [phone] [address] Anti smooth muscle Ab screen (06/19/2019 12:00 AM CULINARY ARTIST) Pathologist Sig nature Anti smooth muscle Not Detected Not-Detected [facility] Ab [facility] Specimen Blood Performing Organization Address City/[facility] Phon e Number [facility] DEPARTMENT OF PATHOLOGY AND [address] [place] [address] [phone] [address] Anti mitochondria screen (06/19/2019 12:00 AM CULINARY ARTIST) Anti mitochondria Not Detected Not-Detected [facility] Specimen Blood Performing Organization Address City/[facility] Phon e Number [facility] DEPARTMENT OF PATHOLOGY AND [address] [place] [address] [phone] [address] Urine culture (06/18/2019 7:24 AM CULINARY ARTIST)Only the most recent of2 resultswithin the time period is included. Urine culture No growth after 24 hours [facility] Comment: HOSPITAL Specimen Information Specimen Source: Urine Specimen Site: Clean catch Specimen Urine Performing Organization Address City/[facility] Phon e Number [facility] DEPARTMENT OF PATHOLOGY AND [address] [place] [address] [phone] [address] Urinalysis screen and microscopy, with reflex to culture (06/18/2019 5:30 AM CULINARY ARTIST)Only the most recent of2 resultswithin the time period is included. Pathologist Sig nature Specimen site Clean catch [facility] Color, UA Yellow [facility] Appearance, UA Cloudy [facility] Specific gravity, 1.011 1.001 - 1.035 [facility] pH, UA 5.0 5.0 - 8.5 [facility] Protein, UA 3+ (A) Negative [facility] Glucose, UA 1+ (A) Negative [facility] Ketones, UA Negative Negative [facility] Bilirubin, UA Negative Negative [facility] Blood, UA Small (A) Negative [facility] Nitrite, UA Negative Negative [facility] Urobilinogen, UA <2.0 <2.0 [facility] Leukocyte esterase, Negative Negative [facility] WBC, UA 14 (H) 0 - 1 /HPF [facility] RBC, UA 1 0 - 5 /HPF [facility] Bacteria, UA Few None seen [facility] WBC clumps, UA Few (A) [facility] Yeast, UA None seen [facility] Yeast with None seen [facility] pseudohyphae, HOSPITAL Amorphous crystals Few [facility] Granular casts, UA 1 0 - 1 /LPF [facility] Specimen Urine Performing Organization Address City/State/ZIP Code Phon e Number [facility] DEPARTMENT OF PATHOLOGY AND [address] [place] [phone] [facility] MEDICINE [address] [address] Hepatitis B surface Ab, quantitative (06/18/2019 5:00 AM CULINARY ARTIST) Hepatitis B surface <3.10 IU/L [facility] Ab Comment: The anti-HBs is [...] and Tissue-Based Products (HCT/P) . Performed by [employer], [address] [place] [address] [email or web address], Roberto Almaguer MD, Lab. Director Specimen Serum Performing Organization Address [facility] Phon e Number [facility] [address] [place] [address] [facility] [address] [place] [address] Ammonia level (06/18/2019 5:00 AM CULINARY ARTIST) Pathologist Sig nature Ammonia 63 (H) 16 - 60 umol/L [facility] Specimen Blood Performing Organization Address [facility] Phon e Number [facility] DEPARTMENT OF PATHOLOGY AND [address] [place] [address] [address] Hepatitis C antibody (06/18/2019 4:00 AM CULINARY ARTIST) Pathologist Sig nature Hepatitis C Ab Non-reactive Non-reactive [facility] Specimen Serum Performing Organization Address [facility] Phon e Number [facility] DEPARTMENT OF PATHOLOGY AND [address] [place] [address] [address] Alpha-1 antitrypsin level (06/18/2019 4:00 AM CULINARY ARTIST) Pathologist Sig nature Alpha-1 antitrypsin 166 90 - 200 mg/dL [facility] Specimen Plasma specimen Performing Organization Address [facility] Phon e Number [facility] DEPARTMENT OF PATHOLOGY AND [address] [place] [address] [address] Hepatitis A antibody IgM (06/18/2019 4:00 AM CULINARY ARTIST) Pathologist Sig nature Hepatitis A IgM Non-reactive Non-reactive [facility] Specimen Serum Performing Organization Address [facility]/ZIP Code Phon e Number [facility] DEPARTMENT OF PATHOLOGY AND [address] [place] [address] [phone] [address] Ceruloplasmin level (06/18/2019 4:00 AM CULINARY ARTIST) Pathologist Sig nature Ceruloplasmin 22 15 - 30 mg/dL [facility] Specimen Plasma specimen Performing Organization Address City/[facility]/ZIP Code Phon e Number [facility] DEPARTMENT OF PATHOLOGY AND [address] [place] [address] [phone] [address] Alpha fetoprotein (06/18/2019 4:00 AM CULINARY ARTIST) Alpha fetoprotein 1.6 0.0 - 8.3 [facility] Comment: ng/mL [facility] The Lexis 8000 AFP immunoassay was used. HOSPITAL Results obtained with different assay methods or kits should not be used interchangeably and may be differen t. Specimen Serum Performing Organization Address [facility] Phon e Number [facility] DEPARTMENT OF PATHOLOGY AND [address] [place] [address] [phone] [address] Hepatitis B core antibody IgM (06/18/2019 4:00 AM CULINARY ARTIST) Pathologist Sig nature Hepatitis B core Non-reactive Non-reactive [facility] IgM HOSPITAL Specimen Serum Performing Organization Address City/[facility]/ZIP Code Phon e Number [facility] DEPARTMENT OF PATHOLOGY AND [address] [place] [address] [phone] [address] Hepatitis B core antibody total (06/18/2019 4:00 AM CULINARY ARTIST) Pathologist Sig nature Hepatitis B core Non-reactive Non-reactive [facility] total Ab HOSPITAL Specimen Serum Performing Organization Address City/State/ZIP Code Phon e Number [facility] DEPARTMENT OF PATHOLOGY AND [address] [place] [address] [phone] [address] Hepatitis B surface antibody (06/18/2019 4:00 AM CULINARY ARTIST) Pathologist Sig nature Hepatitis B surface Non-reactive Non-reactive [facility] Ab [facility] Specimen Serum Performing Organization Address City/[facility]/ZIP Code Phon e Number [facility] DEPARTMENT OF PATHOLOGY AND [address] [place] [address] Hepatitis B surface antigen (06/18/2019 4:00 AM CULINARY ARTIST) Pathologist Sig nature Hepatitis B surface Non-reactive Non-reactive [facility] Specimen Serum Performing Organization Address City/[facility]/ZIP [facility] Phon e Number [facility] DEPARTMENT OF PATHOLOGY AND [address] [place] [address] ANNE (06/18/2019 4:00 AM CULINARY ARTIST) ANNE screen Negative Negative [facility] Comment: HOSPITAL Test performed using [id number] DAPI ANNE kit (Indirect Immunofluorescence Assay) for Anti-Nuclear Antibody on [employer] 160 Analyzer. Specimen Blood Performing Organization Address City/[facility] Phon e Number [facility] DEPARTMENT OF PATHOLOGY AND [address] [place] [address] GGT (06/18/2019 4:00 AM CULINARY ARTIST) Pathologist Sig nature GGT 80 (H) 0 - 59 U/L [facility] Specimen Plasma specimen Performing Organization Address City/[facility] Phon e Number [facility] DEPARTMENT OF PATHOLOGY AND [address] [place] [address] [place] Abdomen Complete (06/17/2019 4:48 PM CULINARY ARTIST) Specimen Narrative Performed At EXAM: US ABDOMEN COMPLETE [facility] CLINICAL DATA: 53 years Male Cirrho [...] participate in the care of your patient. [facility]-[id number] Procedure Note Hm Interface, Radiology Results Incoming - 06/17/2019 4:59 PM CULINARY ARTIST EXAM: US ABDOMEN COMPLETE CLINICAL DATA: 53 [...] participate in the care of your patient. [facility]-[id number] Performing Organization Address City/State/ZIP Code Phon e Number [facility] [address] [place] [address] [place] Abdominal Doppler (06/17/2019 4:48 PM CULINARY ARTIST) Specimen Narrative Performed At EXAMINATION: US [facility]AL [facility]ER [facility] CLINICAL HISTORY: rule out portal [...] and vein are identified and are patent. [facility]-[id number] Procedure Note Interface, Radiology Results Incoming - 06/17/2019 4:55 PM CULINARY ARTIST EXAMINATION: US ABDOMINAL DOPPLER CLINICAL HISTORY: rule [...] and vein are identified and are patent. [facility]-[id number] Performing Organization Address [facility]/ZIP Code Phon e Number [facility] [address] [place] [address] [place] Renal (06/17/2019 2:26 PM CULINARY ARTIST) Specimen Narrative Performed At EXAMINATION: US RENAL [facility] CLINICAL HISTORY: Flank pain stone d isease suspected COMPARISON: None. IMPRESSION: The right kidney measures 12 cm in jeanine gth. The left kidney measures 13.9 cm in le ngth. There is no renal mass, stone, cyst, or hydronephrosis . Echogenicity is normal. The urinary bladder is unremarkable. [facility]-[id number] Procedure Note Interface, Radiology Results Incoming - 06/17/2019 2:32 PM CULINARY ARTIST EXAMINATION: US RENAL CLINICAL HISTORY: Flank pain stone dis ease suspected COMPARISON: None. IMPRESSION: The right kidney measures 12 cm in juan ramon th. The left kidney measures 13.9 cm in jeanine gth. There is no renal mass, stone, cyst, or hydronephrosis. Echogenicity is normal. The urinary bladder is unremarkable. [facility]-[id number] Performing Organization Address City/State/ZIP Code Phon e Number [facility] [address] [place] [address] Celiac disease reflexive cascade (06/17/2019 4:53 AM CULINARY ARTIST) IgA 449 (H) 68 - 408 mg/dL [facility] Comment: Total IgA is within or higher than established ranges. Tissue Transglutaminase, IgA to follow. REFERENCE INTERVAL: Immunoglobulin A Access complete set of age- and/or gender-specific ref erence intervals for this test in the [facility] Laboratory Test Di rectory ([employer]). Performed by [employer], [address] [place] [address] [email or web address] [employer], Roberto Almaguer MD, Lab. Director Specimen Serum Narrative Performed At [facility] called with reae back to [address] at 06/16/2019 [facility] 08:04 by NEFTALY. Performing Organization Address [facility] Phon e Number [facility] [address] [phone] [facility] [address] [place] [address] Tissue transglutaminase Ab, IgA (06/17/2019 4:53 AM CULINARY ARTIST) Tissue 1 0 - 3 U/mL [facility] REF transglutaminase Ab, Comment: LAB [...] sitive predictive value for disease. Performed by [employer], [address] [place] [address] [email or web address], Roberto Almaguer MD, Lab. Director Specimen Serum Narrative Performed At [facility] called with reae back to [address] at 06/16/2019 [facility] 08:04 by NEFTALY. Performing Organization Address [facility]/ZIP Code Phon e Number [facility] [address] [place] [address] HM [facility] [address] [place] [address] Fecal calprotectin (06/15/2019 4:30 PM CULINARY ARTIST) Pathologist Sig nature Fecal calprotectin 57.64 <15.6-120mg/kg [facility] Specimen Blood Performing Organization Address City/State/ZIP Code Phon e Number [facility] DEPARTMENT OF PATHOLOGY AND [address] [place], [place] [address] GENOMIC MEDICINE [facility] [address] [place] [address] Spirometry, diffusion, lung volumes (06/15/2019 2:29 PM CULINARY ARTIST) Pathologist Sig nature FEV1 Pre 2.23 2.81 [...] is no t available. Performing Organization Address City/State/[facility] Code Phon e Number [facility] [address] [place] [address] Us carotid duplex (06/15/2019 11:31 AM CULINARY ARTIST) Specimen Narrative Performed At [facility] Carotid A rtery Duplex Report [address] [place] [address] For water quality specialist purposes, the categorization of the degree of the stenosis of this exam is based on criteria described i n the IAC carotid stenosis grading white paper( www.intersocietal.org/Va scular) and Thanh Nava., Derrick Fountain., et al. Carotid artery stenosis: wagner-scale and Doppler US diagnosis-- Society of Radiologists in Ultrasound Consensus Conference. Radio logy. 2002; 229(2):340-6. Pat.Name: PAOLA KWONG Pat.ID: [id number] .Date: 06/15/2019 Refer.MD: MILTON ELLINGTON MD Exam Time: 11:04:00 AM Study Type:Ca rotid Height: 67in Weight: 212lb BSA: 2.07 m2 Ag e: 1965,53Y Sex: MALE BP: 116/68 Sonogrphr: Suad Greco, RDCS, RVT Pat. Stat.:Inpatient Room: [address] ol: ED, CPT - 4: [address] Doretha Jo nt ID:[id number] Order ID: [id number] Reason for Study:Pre-op evaluation History / Clinical:Smoker, [...] Signed 06/15/2019 08:05 PM Valentín Vallejo MD, BETH Procedure Note Interface, Radiology Results In - 2019 8:06 PM [facility]ound Laboratory Carotid Artery Dupl ex Report [address] [facility] [address] , [place] [address] For water quality specialist purposes, the sarah gorization of the degree of the stenosis of this exam is based on criteria described in the IAC carotid stenosis grading white paper( www.intersocietal.org/Vascular) and Thanh Nava., Derrick Fountain., et al. Carotid artery stenosis: wagner-scale and Doppler US diagnosis--Society of Radiologists in Ultrasound Consensus Conference. Radiology. 2003 Feb; 229(2):340-6. Pat.Name: PAOLA KWONG Pat.I D: [id number] St.Date: 06/15/2019 Refer.MD: MILTON ELLINGTON MD Exam Time: 11:04:00 AM Study Type:Carotid Height: 67in Weigh t: 212lb BSA: 2.07 m2 Age: 6 1965,53Y Sex: MALE BP: 116/68 Sonogrphr: Suad Greco RDCS, RVT Pat. Stat.:Inpatient Room: [address] Vol: ED, CPT - 4: 11265 Echo Event ID:[id number] Order ID: [id number] Reason for Study:Pre-op evaluation History / Clinical:Smoker, [...] MD, RPVI Performing Organization Address City/State/ZIP Code [facility] e Number [facility] [address] [place] [address] Gastrointestinal panel (06/14/2019 5:48 AM CULINARY ARTIST)Only the most recent of2 results within the time period is included. Pathologist [facility] Gastrointestinal panel Negative for all pathogens tested: [facility] Negative for Salmonella [facility] Negative for Campylobacter [facility] Negative for Diarrheagenic E coli/Shigella [...] Specimen Stool - Nonpreserved Performing Organization Address City/[facility]/ZIP [facility] Phon e Number [facility] DEPARTMENT OF PATHOLOGY AND [address] [place] [address] [phone] [address] Thyroid stimulating hormone (06/14/2019 5:14 AM CULINARY ARTIST) Pathologist Sig nature TSH 1.95 0.27 - 4.20 uIU/mL [facility] ITAL Specimen Plasma specimen Performing Organization Address City/[facility] Phon e Number [facility] DEPARTMENT OF PATHOLOGY AND [address] [place] [address] [address] [address] T4, free (06/14/2019 5:14 AM CULINARY ARTIST) Pathologist Sig nature T4, free 0.8 (L) 0.9 - 1.7 ng/dL [facility] L Specimen Plasma specimen Performing Organization Address [facility] Phon e Number [facility] DEPARTMENT OF PATHOLOGY AND [address] [place] [address] [address] [address] Hemoglobin A1c (06/14/2019 5:14 AM CULINARY ARTIST) Hemoglobin A1C 12.6 (H) 4.0 - 5.6 % [facility] Comment: HOSPITAL HbA1c cutoffs for diagnosing diabetes: [...] 1 diabetes. Specimen Blood Performing Organization Address City/[facility] Phon e Number [facility] DEPARTMENT OF PATHOLOGY AND [address] [place] [address] [address] [address] Lipid panel (06/14/2019 5:14 AM CULINARY ARTIST) Cholesterol 177 <200 mg/dL [facility] Triglycerides 407 (H) <150 mg/dL [facility] HDL cholesterol 32 (L) >40 mg/dL [facility] LDL cholesterol 104 (H)Comment: <100 mg/dL [facility] Result obtained by [facility] direct [facility] HOSPITAL measurement [facility]id [facility] interpretation Comment: [facility] Total Cholesterol (mg/dL) HOSPIT [place] <200 Desirable [...] mg/dL) Specimen Plasma specimen Performing Organization Address City/[facility] Phon e Number [facility] DEPARTMENT OF PATHOLOGY AND [address] [place] [phone] [facility] MEDICINE [address] [address] Manual differential (06/14/2019 4:59 AM CULINARY ARTIST) Manual differential PERFORMED [facility] Neutrophils 53.0 39.0 - 69.0 % [facility] Lymphocytes 36.0 25.0 - 45.0 % [facility] Monocytes 6.0 0.0 - 10.0 % [facility] Eosinophils 4.0 0.0 - 5.0 % [facility] Basophils 1.0 0.0 - 1.0 % [facility] Metamyelocytes 0 % [facility] Promyelocytes 0 % [facility] Platelet slide review Rebekah adequate [facility] Anisocytosis Moderate [facility] Polychromasia Moderate [facility] Ovalocytes Moderate [facility] Specimen Performing Organization Address City/[facility] Phon e Number [facility] DEPARTMENT OF PATHOLOGY AND [address] [place] [phone] 0 [facility] MEDICINE [address] [address] Influenza antigen (06/12/2019 9:15 PM CULINARY ARTIST) Influenza antigen Negative for Influenza A/B antigen. [facility] Comment: HOSPITAL Specimen Information Specimen Source: Nares Specimen Site: Right Specimen Nares - Right Performing Organization Address [facility] Phon e Number [facility] DEPARTMENT OF PATHOLOGY AND [address] [place] [address] [phone] [address] Partial thromboplastin time, activated (06/12/2019 7:49 PM CULINARY ARTIST) PTT 28.1 23.0 - 36.0 [facility] Comment: [facility] HOSPITAL PTT therapeutic range for unfractionated heparin is 61.0-112.0 seconds which corresponds to Anti-Xa 0.3-0.7 U/ml. Specimen Blood Performing Organization Address [facility] Phon e Number [facility] DEPARTMENT OF PATHOLOGY AND [address] [place] [address] [phone] [address] after 04/22/2019 Insurance Payer Benefit Plan / Subscriber ID Effective Dates Phone Addre ss Type Group [email or web address] [facility] [id number] 2019-Presen Exchange CHOICE EXCHANGE EXCHANGE t MARK[employer] Advance Directives For more information, please contact: [phone] Type Date Recorded Patient Emt Intermediate Explanati on Advance Directives, Living 03/20/2018 10:24 PM Will and Medical Power of Awning Erector Code Status Date Activated Date Inactivated Comments [...]
--- OUTSIDE RECORDS SUMMARY | 2020-04-22 00:34 | XMS REPORT | Continuity of Care Document ---
:1965 Author Organization [facility] t Address [address] [place] [address] Care Team Providers Name Role Phone Ecci Primary Care Physician Unavailable Asael LAYTON Attending Clinician Miguel LAYTON, F Attending Clinician Ke BOSS, K.H. Attending Clinician Aniceto Palomino MD Attending Clinician Erick BOSS Attending Clinician Mario LEACH Attending Clinician Unavailable Ryan Jeffery MD Attending Clinician Chandana BOSS, O. Attending Clinician Lupe LEACH Attending Clinician Unavailable Maico Tyler MD Attending Clinician Ventura BOSS, A. Attending Clinician Farhad CORONA Attending Clinician Unavailable NOBLE RODRIGUES Attending Clinician Unavailable CHANDANA Admitting Clinician Unavailable NOBLE RODRIGUES Admitting Clinician Unavailable Payers Payer Name Policy Type Policy Effective Date Expiration Date Sour ce Number [facility] [id number] 2019 [place] CHOICE 00:00:00 [facility] MARKETPLACExxxxxx [id number] 2019-Pr esentExchange Problems Condition Condition Condition Status Onset Resolution Last Treating Co mments Source Name Details Category Date Date Treatment Clinician Date Diabetic Diabetic Disease Active [place] peripheral peripheral 06-16 [facility] neuropathy neuropathy 00:00: st 00 Chronic Chronic Disease Active [facility] kidney kidney 2-19 [facility] disease, disease, 00:00: st stage III stage III 00 (moderate) (moderate) Diarrhea, Diarrhea, Disease Active Ferdinand ston unspecifie unspecifie 06-16 [facility] d 00:00: st 00 Edema of Edema of Disease Active [place] left orbit left orbit 06-16 Me thodi 00:00: st 00 Hyperglyce Hyperglyce Disease Active H [facility] cristóbal cristóbal 2-15 [facility]i 00:00: st 00 Subdural Subdural Disease [facility] hematoma [facility]08 - due to due to 00:00: Medical concussion concussion 00 Ce nter , with , with loss of loss of consciousn consciousn ess, ess, subsequent subsequent encounter encounter Unstable Unstable Disease [facility] ang[facility] angina [facility]08 - 00:00: Medical 00 [place] Hyperglyce Hyperglyce Disease Active [facility] cristóbal due to cristóbal due to 01-08 kes - type 2 type 2 00:00: Medical diabetes diabetes 00 Center mellitus mellitus Hypertensi Hypertensi Disease Active [facility] [place] CKD CKD Disease Active [facility] (chronic (chronic 01-08 - kidney kidney 00:00: Medical disease) disease) 00 Center Acute Acute Disease Active 2017-04 [facility] renal renal 1-23 [facility] failure failure 00:00: st 00 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-14 Meth susi diabetes diabetes 00:00: st mellitus mellitus 00 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 0-13 [facility] 00:00: st 00 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 [place] 0-13 [facility] 00:00: st 00 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 Ferdinand ston of right of right 0-13 Method i posterior posterior 00:00: st communicat communicat 00 ing artery ing artery Chest pain Chest pain Disease Active H [facility] 12-01 [facility] 00:00: st 00 Essential Essential [...] st 00 Hypertrigl Hypertrigl Disease Active H edgar yceridemia yceridemia 12-01 La th[facility] 00:00: st 00 Depression [facility] st 00 Allergies, Adverse Reactions, Alerts Allergy Allergy Status Severity Reaction(s) Onset Inactive Treating Comm ents Source Name Type Date Date Clinician Ketorola Propensi Active Hallucinatio [facility] ty to ns 2-15 Methodi [...] s to drug Codeine Propensi Active Hives [place] ty to 8-06 [facility] adverse 00:00: st reaction 00 s to drug Hydrocod Propensi Active Hives, [place] one-Acet ty to Itching 2-28 [facility] aminophe adverse 00:00: st n reaction 00 s to drug Family History Family Member Diagnosis Comments Start Date Stop Date Source Natural father Diabetes [facility]odist Natural father No Known Problem [facility] Natural mother Diabetes [place] Me thodist Natural mother Hypertension [place] Tenriism Natural mother Heart disease [facility] Natural mother Hypertension [facility] Social History Social Habit Start Date Stop Date Quantity Comments Source History of tobacco Cigarette Smoker [place] use Tenriism History SDMI [facility] Std Drinks [facility] Center History SDMI [facility] - Alcohol Binge Medical Kyrie ter Sex Assigned At [facility] Cigarettes smoked 2019-01-06 2019-01-[address] [facility] [address] [place] - current (pack per 00:00:00 00:00:00 Medical Center day) - Reported Tobacco use and 2019-01-06 2019-01-06 Never used [facility] St [place]air kes - exposure 00:00:00 00:00:00 [facility] Alcohol intake 2019-01-06 2019-01-06 Current [facility] [place] es - 00:00:00 00:00:00 non-drinker of Medical Ce nter alcohol (finding) History SDOH 2019-01-06 2019-01-06 [address] [facility] [address] [place]in - Alcohol Frequency 00:00:00 00:00:00 [facility] Tobacco Comment 2019-01-06 2019-01-06 smokes 1 pack a [facility] - 00:00:00 00:00:00 day, started Medical [facility] er again 3 years ago Smoking Status Start Date Stop Date Source Current every day smoker 2019-01-06 00:00:00 [facility] Medications Ordered Filled Start Stop Current Ordering Indication Dosage Frequency Signature Comments Components Source Medication Medication Date Date Medication? Clinician (SIG) Name Name insulin 2019- 2020- No 6U QD Inject 6 [place] lispro 3-21 04-20 Units [facility] (HumaLOG) 00:00: 23:[address] 100 unit/mL 00 :00 skin daily injection with breakfast for 30 days. pantoprazol 2019-0 2020- No 40mg QD Take 1 Ferdinand ston e 3-21 04-20 tablet (40 [facility] (PROTONIX) 00:00: 23:59 mg total) s t 40 MG EC 00 :00 by mouth tablet daily for 30 days. gabapentin 2019-0 2020- No 1800mg QD Take 1,800 [place] (NEURONTIN) 3-20 03-20 mg by Method i 300 mg 17:37: 00:[address] capsule 04 :00 every morning. citalopram 2019-0 2020- No 20mg QD Take 20 mg [place] (CeleXA) 20 3-20 -20 by mouth Met hodi MG tablet 17:37: [...] QD Take 50 mg [place] (TENORMIN) -15 07-20 by mouth Meth susi 50 MG 12:21: 00:[address] tablet 02 :00 atenoloL 2019-0 2020- No 50mg QD Take 1 [place] (TENORMIN) -20 -19 tablet (50 Me thodi 50 MG 00:00: 23:59 mg total) st tablet 00 :00 by mouth daily for 30 days. citalopram 2019-0 2020- No 20mg QD Take 1 [place] (CeleXA) 20 -20 -19 tablet (20 M ethodi MG tablet 00:00: [...] QD Take 0.5 [place] (ZOCOR) 80 07-15 tablets Metho di MG tablet 00:00: 23:59 ([address] 00 :00 total) by mouth nightly for 30 days. brimonidine 2019-0 2020- No 1[drp] Q.[id number] Administer [facility] (ALPHAGAN) 07-15 [id number] 1 drop Methodi 0.15 % 00:00: 23:[address] ophthalmic 00 :00 left eye solution every 8 (eight) hours for 30 days. calcium 2019-0 2020- No 667mg Q.[id number] Take 1 [place] acetate,tate -08-14 [id number] capsule Methodi sphat bind, 00:00: 23:59 3D ([address] (PHOSLO) 00 :00 total) by 667 mg mouth 3 capsule (three) times a day with meals for 30 days. dorzolamide 2019-0 2019- No 1[drp] Q.5D Administer [place] -timolol 07-15 1 drop [facility] (COSOPT) 00:00: [...] before lunch for 30 days. insulin NPH 2020-0 2020- No 20U QD Inject 20 [place] (HumuLIN-N) -15 08-19 Units Method i 100 unit/mL 00:00: 23:[address] injection 00 :00 skin daily for 30 days. isosorbide 2019-2019- No 60mg QD Take 1 [place] mononitrate 07-15 tablet (60 M ethodi (IMDUR) 60 00:00: 23:59 mg total) s t MG 24 hr 00 :00 by mouth tablet daily for 30 days. latanoprost 2019-2019- No 1[drp] QD Administer [place] (XALATAN) 07-15 1 drop Methodi 0.005 % 00:00: 23:[address] ophthalmic 00 :00 left eye solution nightly for 30 days. levETIRAcet 2019- 2020- No 250mg Q.5D Take 1 [place] am (KEPPRA) 07-15 tablet Metho di 250 MG 00:00: 23:59 ([address] tablet 00 :00 total) by mouth 2 (two) times a day for 30 days. methocarbam 2019-2019- No 500mg Q.[id number] Take 1 [place] oL 07-15 [id number] tablet Method i (ROBAXIN) 00:00: 23:59 3D ([address] 500 MG 00 :00 total) by tablet mouth 3 (three) times a day as needed for muscle spasms for up to 30 days. nystatin 2019-0 2019- No Q.5D Apply [place] (MYCOSTATIN 07-15 topically Me thodi ) 100,000 00:00: 23:59 2 (two) st unit/gram 00 :00 times a powder day for 30 days. polyethylen 2019-2019- No 17g QD Take 17 g [facility] e glycol 07-15 by mouth Method i (MIRALAX) 00:00: 23:[address] 17 gram 00 :00 30 days. packet riFAXimin 2019-2019- No 550mg Q.5D Take 1 [place] (XIFAXAN) 07-15 tablet Methodi 550 mg 00:00: 23:59 ([address] tablet 00 :00 total) by mouth 2 (two) times a day for 30 days. sevelamer 2019-0 2020- No 800mg Q.[id number] Take 1 [place] (RENVELA) 07-15 [id number] tablet M ethodi 800 mg 00:00: 23:59 3D ([address] tablet 00 :00 total) by mouth 3 (three) times a day with meals for 30 days. mineral 2019- No QD Administer Ferdinand ston oil/petrola 07-15 to both Meth susi john,white 00:00: 23:[address] (artificial 00 :00 nightly as tears) needed ointment (itching/d ry eyes) for up to 30 days. insulin 2019- No 3U QD Inject 3 [place] lispro 07-15 Units [facility] (HumaLOG) 00:00: 23:[address] 100 unit/mL 00 :00 skin injection nightly for 30 days. metoprolol Yes 50mg QD Take 1 [facility] (TOPROL-XL) 9-17 tablet (50 Tabby kes - 50 MG 24 hr 00:00: mg total) edical tablet 00 by mouth Center daily. aspirin 81 2018- Yes 81mg QD Take [address] MG chewable 9-16 by mouth Luke s - tablet 17:13: daily. [address] citalopram 2018-0 Yes 20mg QD Take [address] (CELEXA) 20 9-16 by mouth Luke s - MG tablet 17:13: daily. [address] gabapentin [address] Yes 300mg QD Take [address] (NEURONTIN) 9-16 mg by [facility] - 300 MG 17:13: mouth Medical capsule 05 daily. [place] clopidogrel 2019-0 Yes 75mg QD Take [address] (PLAVIX) 75 9-16 by mouth Luke s - mg tablet 17:13: daily. [address] simvastatin 2019-0 Yes 80mg QD Take [address] (ZOCOR) 80 9-16 by mouth [facility]ukes - MG tablet 17:13: daily. [address] spironolact 2019-0 Yes 25mg QD Take [address] one 9-16 by mouth [facility]ukes - (ALDACTONE) 17:13: daily. Medi warren [address] [place] [address] tablet levETIRAcet 2019-0 Yes 500mg QD Take [address] am (KEPPRA) 9-16 mg by [facility]ukes - 500 MG 17:13: mouth Medical tablet 05 daily. [place] insulin Yes 80U Inject 80 [facility] 70/30, 9-16 Units [facility] - insulin 17:13: subcutaneo Medi warren NPH-insulin 05 usly 2 Center regular, (two) (HUMULIN times 70/30) 100 daily unit/mL before (70-30) meals. injection travoprost Yes 1[drp] QD Place [address] (TRAVATAN 9-[address] [facility] - Z) 0.004 % 17:13: both eyes Me dical Drop 05 nightly. [place] ophthalmic drops furosemide Yes 20mg QD Take [...] Cente r mouth 2 (two) times daily. insulin 2017-04 Yes Inject [place] syringe-nee 0-22 [...] QD Take 50 mg [place] (TENORMIN) 2- 03-20 by mouth Meth susi 50 MG 00:00: 00:[address] tablet 00 :00 citalopram 2019- No 20mg QD Take 20 mg [place] (CeleXA) 20 8 03-20 by mouth Met hodi MG tablet 00:00: 00:[address] 00 :00 traMADol Yes 50mg Q6H Take 50 mg Ferdinand ston (ULTRAM) 50 4-28 by mouth Meth susi mg tablet 00:00: every 6 st 00 (six) hours as needed. simvastatin 2015-04- No 40mg QD Take 40 mg [place] (ZOCOR) 80 0-24 03-20 by mouth Meth susi MG tablet 00:00: 00:[address] 00 :00 Vital Signs Vital Name Observation Time Observation Value Comments Source Systolic blood 2019-12-28 22:43:00 122 mm[Hg] Ismaelto n Tenriism pressure Diastolic blood 2019-12-28 22:43:00 73 mm[Hg] Anthony on Tenriism pressure Heart rate 2019-12-28 22:43:00 74 /min [...] CT CHEST WO CONTRAST 2019-12-28 21:29:58 Tu, Suze Johnson CT HEAD WO CONTRAST 2019-12-28 21:28:46 Tu, Suze Johnson XR CHEST 1 VW PORTABLE 2019-12-28 20:55:21 Tu, Suze Johnson ECG ED PRELIMINARY 2019-12-28 20:54:49 Tu, Suze Johnson INTERPRETATION HC COMPLETE BLD COUNT 2019-12-28 19:16:00 Tu, Suze Johnson W/AUTO DIFF COMPREHENSIVE METABOLIC 2019-12-28 19:16:00 Tu, Suze Johnson PANEL TROPONIN 2019-12-28 19:16:00 Tu, Suze Johnson B NATRIURETIC PEPTIDE 2019-12-28 19:16:00 Tu, Suze Johnson ESTIMATED GFR 2019-12-28 19:16:00 Tu, Suze Johnson ECG 12-LEAD 2019-12-28 18:32:49 Tu, Suze Johnson POC GLUCOSE 2019-07-16 12:29:00 Milton Ellington POC GLUCOSE 2019-07-16 08:40:00 Milton [place] BASIC METABOLIC PANEL 2019-07-16 04:00:00 Yunier Stephens Tenriism Wiley PHOSPHORUS LEVEL 2019-07-16 04:00:00 Yunier Stephens Wiley ESTIMATED GFR 2019-07-16 04:00:00 Yunier Stephens M ethodist Wiley HEMODIALYSIS 2019-07-16 00:05:39 Yunier Stephens M ethodist Wiley POC GLUCOSE 2019-07-15 21:51:00 Milton Ellington POC GLUCOSE 2019-07-15 16:56:00 Milton [place] POC GLUCOSE 2019-07-15 11:31:00 Milton [place] POC GLUCOSE 2019-07-15 07:55:00 Milton [place] HC COMPLETE BLD COUNT 2019-07-15 05:30:00 Andrews Wright W/AUTO DIFF BASIC METABOLIC PANEL 2019-07-15 05:30:00 Andrews Wright ESTIMATED GFR 2019-07-15 05:30:00 Andrews Wright La thodist POC GLUCOSE 2019-07-14 21:08:00 Milton [place] POC GLUCOSE 2019-07-14 16:55:00 Milton Ellingtonist POC GLUCOSE 2019-07-14 13:49:00 Milton Ellington Tenriism POC GLUCOSE 2019-07-14 11:48:00 Milton [place] HEMODIALYSIS 2019-07-14 09:13:12 Yunier Stephens ethodist Wiley POC GLUCOSE 2019-07-14 08:13:00 Milton Ellington BASIC METABOLIC PANEL 2019-07-14 05:10:00 Yunier Stephens Tenriism Wiley MAGNESIUM LEVEL 2019-07-14 05:10:00 Yunier Stephens ethodist Wiley PHOSPHORUS LEVEL 2019-07-14 05:10:00 Yunier Stephens Wiley HC COMPLETE BLD COUNT 2019-07-14 05:10:00 Yunier Stephens Tenriism W/AUTO DIFF Wiley ESTIMATED GFR 2019-07-14 05:10:00 Yunier Stephens ethodist Wiley POC GLUCOSE 2019-07-14 02:44:00 Milton Ellington Tenriism POC GLUCOSE 2019-07-13 21:27:00 Milton Ellington Tenriism POC GLUCOSE 2019-07-13 16:22:00 Milton Ellington Tenriism POC GLUCOSE 2019-07-13 13:08:00 Milton [place]ington Tenriism POC GLUCOSE 2019-07-13 07:55:00 Milton [place]ington BASIC METABOLIC PANEL 2019-07-13 03:25:00 Yunier Stephens Tenriism Wiley MAGNESIUM LEVEL 2019-07-13 03:25:00 Yunier Stephens ethodist Wiley PHOSPHORUS LEVEL 2019-07-13 03:25:00 Yunier Stephens Wiley ESTIMATED GFR 2019-07-13 03:25:00 Yunier Stephens ethodist Wiley POC GLUCOSE 2019-07-12 21:00:00 Milton Ellington POC GLUCOSE 2019-07-12 17:06:00 Milton Ellington POC GLUCOSE 2019-07-12 16:06:00 Milton Ellington Tenriism POC GLUCOSE 2019-07-12 14:25:00 Milton Ellington Tenriism POC GLUCOSE 2019-07-12 12:07:00 Milton Ellington HEMODIALYSIS 2019-07-12 08:45:38 Yunier Stephens ethodist Wiley POC GLUCOSE 2019-07-12 08:44:00 Milton Ellington Tenriism BASIC METABOLIC PANEL 2019-07-12 04:00:00 Yunier Stephens Tenriism Wiley MAGNESIUM LEVEL 2019-07-12 04:00:00 Yunier Stephens ethodist Wiley PHOSPHORUS LEVEL 2019-07-12 04:00:00 Angelo Yunier Johnson Wiley ESTIMATED GFR 2019-07-12 04:00:00 Stephens, Yunier Olea Mercy ethodist Wiley POC GLUCOSE 2019-07-11 21:23:00 [...] [place] POC GLUCOSE 2019-07-10 22:12:00 Milton Ellington Tenriism POC GLUCOSE 2019-07-10 17:24:00 Milton Ellington BASIC METABOLIC PANEL 2019-07-10 13:40:00 Yunier Stephens Tenriism Wiley MAGNESIUM LEVEL 2019-07-10 13:40:00 Yunier Stephens ethodist Wiley PHOSPHORUS LEVEL 2019-07-10 13:40:00 Yunier Stephens Wiley HC COMPLETE BLD COUNT 2019-07-10 13:40:00 Yunier Stephens Tenriism W/AUTO DIFF Wiley FERRITIN LEVEL 2019-07-10 13:40:00 Angelo Yunier Lefty [place] ethodist Wiley TOTAL IRON BINDING CAPACITY 2019-07-10 13:40:00 Stephens, Tim Johnson Wiley ESTIMATED GFR 2019-07-10 13:40:00 Angelo Yunier Olea Mercy ethodist Wiley POC [...] [place] BASIC METABOLIC PANEL 2019-07-09 04:00:00 StephensYunier Wiley MAGNESIUM LEVEL 2019-07-09 04:00:00 Angelo Yunier Olea Mercy ethodist Wiley PHOSPHORUS LEVEL 2019-07-09 04:00:00 Yunier Stephens Wiley ESTIMATED GFR 2019-07-09 04:00:00 Angelo Yunier Olea Mercy ethodist Wiley POC GLUCOSE 2019-07-08 21:16:00 Milton Ellington POC GLUCOSE 2019-07-08 16:19:00 Milton Ellington POC GLUCOSE 2019-07-08 13:42:00 Mitlon Ellington POC GLUCOSE 2019-07-08 07:57:00 Milton Ellington HEPATIC FUNCTION PANEL 2019-07-08 04:00:00 Yris Lagos Tenriism BASIC METABOLIC PANEL 2019-07-08 04:00:00 Yunier Stephens Wiley MAGNESIUM LEVEL 2019-07-08 04:00:00 Yunier Stephens ethodist Wiley PHOSPHORUS LEVEL 2019-07-08 04:00:00 Yunier Stephens Wiley ESTIMATED GFR 2019-07-08 04:00:00 Yris Lagos Me thodist POC GLUCOSE 2019-07-07 21:30:00 Milton Ellington HYPERSENSITIVITY 2019-07-07 17:30:00 [facility] Met hodjose PNEUMONITIS II Yoandy POC GLUCOSE 2019-07-07 17:19:00 Milton Ellington IMMUNOGLOBULIN G 2019-07-07 16:11:00 [facility] Met hodist Yoandy ANTI-NEUTROPHILIC 2019-07-07 14:30:00 Yunier Stephens CYTOPLASMIC ABS PANEL Wiley SS-B ANTIBODY 2019-07-07 14:30:00 [facility] Meth odist Yoandy CENTROMERE ANTIBODY 2019-07-07 14:30:00 [facility] Tenriism Yoandy DOUBLE-STRANDED DNA (DSDNA) 2019-07-07 14:30:00 Tim Stephens Tenriism ANTIBODIES, CRITHIDIA Wiley POC GLUCOSE 2019-07-07 12:08:00 Milton Ellington POC GLUCOSE 2019-07-07 07:41:00 Milton Ellington HEPATIC FUNCTION PANEL 2019-07-07 04:00:00 Yris Lagos Tenriism BASIC METABOLIC PANEL 2019-07-07 04:00:00 Yunier Stephens [...] CONTRAST, 2019-07-05 09:25:06 Milton Ellington W DOPPLER ([id number]) POC GLUCOSE 2019-07-05 08:17:00 Milton Ellington BASIC METABOLIC PANEL 2019-07-05 05:14:00 Yunier Stephens Wiley MAGNESIUM LEVEL 2019-07-05 05:14:00 StephensYunier ethodist [...] BASIC METABOLIC PANEL 2019-07-04 05:16:00 Yunier Stephens Tenriism Wiley MAGNESIUM LEVEL 2019-07-04 05:16:00 Yunier Stephens ethodist Wiley PHOSPHORUS LEVEL 2019-07-04 05:16:00 Yunier Stephens Wiley ESTIMATED GFR 2019-07-04 05:16:00 Yunier Stephens ethodist Wiley POC GLUCOSE 2019-07-03 21:52:00 Milton Ellington POC GLUCOSE 2019-07-03 16:16:00 Milton Ellington POC GLUCOSE 2019-07-03 12:31:00 Milton Ellington POC GLUCOSE 2019-07-03 11:50:00 Milton Ellington POC GLUCOSE 2019-07-03 07:48:00 Milton [place] BASIC METABOLIC PANEL 2019-07-03 04:00:00 StephensYunier Wiley MAGNESIUM LEVEL 2019-07-03 04:00:00 Angelo Yunier [place] ethodist Wiley PHOSPHORUS LEVEL 2019-07-03 04:00:00 StephensYunier Wiley VANCOMYCIN LEVEL, RANDOM 2019-07-03 04:00:00 [facility] [place] ESTIMATED GFR 2019-07-03 04:00:00 Stephens, Yunier [place] ethodist Wiley POC GLUCOSE 2019-07-02 21:29:00 Milton [place]ington POC GLUCOSE 2019-07-02 18:48:00 Milton [place] BASIC METABOLIC PANEL 2019-07-02 16:05:00 StephensYunier Tenriism Wiley ESTIMATED GFR 2019-07-02 16:05:00 StephensYunier ethodist Wiley POC GLUCOSE 2019-07-02 16:03:00 Milton [place] VENIPUNC NEED PHYS SKILL,DX 2019-07-02 14:59:18 Kaykay Rain OR RX POC GLUCOSE 2019-07-02 11:52:00 [facility] [place] POC GLUCOSE 2019-07-02 08:44:00 Milton [place] VANCOMYCIN LEVEL, RANDOM 2019-07-02 04:00:00 Miltno Ellington BASIC METABOLIC PANEL 2019-07-02 04:00:00 Yunier Stephens Tenriism Wiley MAGNESIUM LEVEL 2019-07-02 04:00:00 AngeloYunier ethodist Wiley PHOSPHORUS LEVEL 2019-07-02 04:00:00 Yunier [...] Yunier Stephens Wiley MAGNESIUM LEVEL 2019-06-30 04:03:00 uYnier Stephens ethodist Wiley PHOSPHORUS LEVEL 2019-06-30 04:03:00 [...] Ell[place] BASIC METABOLIC PANEL 2019-06-28 05:22:00 Yunier Stephens Wiley MAGNESIUM LEVEL 2019-06-28 05:22:00 Yunier Stephens [...] BASIC METABOLIC PANEL 2019-06-27 05:14:00 Yunier Stephens Tenriism Wiley MAGNESIUM LEVEL 2019-06-27 05:14:00 Yunier Stephens ethodist Wiley PHOSPHORUS LEVEL 2019-06-27 05:14:00 Yunier Stephens Wiley VANCOMYCIN LEVEL, RANDOM 2019-06-27 05:14:00 Milton Ellington ESTIMATED GFR 2019-06-27 05:14:00 Milton Ellington POC GLUCOSE 2019-06-26 21:21:00 Milton Ellington POC GLUCOSE 2019-06-26 19:41:00 Milton Ellington POC GLUCOSE 2019-06-26 19:12:00 Milton Ellington ULTRAFILTRATION 2019-06-26 13:39:23 Andrews Wright La thodist POC GLUCOSE 2019-06-26 12:05:00 Milton Ellington POC GLUCOSE 2019-06-26 08:54:00 Milton Ellington BASIC METABOLIC PANEL 2019-06-26 06:25:00 Yunier Stephens Tenriism Wiley MAGNESIUM LEVEL 2019-06-26 06:25:00 Yunier Stephens ethodist Wiley PHOSPHORUS LEVEL 2019-06-26 06:25:00 Yunier Stephens Wiley HC COMPLETE BLD COUNT 2019-06-26 06:25:00 Yunier Stephens W/AUTO DIFF Wiley VANCOMYCIN LEVEL, RANDOM 2019-06-26 06:25:00 Milton Ellington ESTIMATED GFR 2019-06-26 06:25:00 Milton Ellington POC GLUCOSE 2019-06-25 23:39:00 Milton Ellington HEMODIALYSIS 2019-06-25 21:44:30 Andrews Wright Me thodist POC GLUCOSE 2019-06-25 21:14:00 Milton Ellington BASIC METABOLIC PANEL 2019-06-25 18:45:00 Yunier Stephens Wiley PHOSPHORUS LEVEL 2019-06-25 18:45:00 Yunier Stephens Wiley ESTIMATED GFR 2019-06-25 18:45:00 Yunier Stephens ethodist Wiley POC GLUCOSE 2019-06-25 15:45:00 Milton Ellington POC GLUCOSE 2019-06-25 11:30:00 Milton Ellingtonist POC GLUCOSE 2019-06-25 07:47:00 Milton Ellingtonist POC GLUCOSE 2019-06-25 00:05:00 Milton Ellington POC GLUCOSE 2019-06-24 21:12:00 Milton Ellington POC GLUCOSE 2019-06-24 16:22:00 Milton Ellington POC GLUCOSE 2019-06-24 13:17:00 Milton Ellington HEMODIALYSIS 2019-06-24 11:11:02 Yunier Stephens ethodist Wiley POC GLUCOSE 2019-06-24 07:35:00 Milton Ellington BASIC METABOLIC PANEL 2019-06-24 04:00:00 Yunier Stephens Wiley MAGNESIUM LEVEL 2019-06-24 04:00:00 Yunier Stephens ethodist Wiley PHOSPHORUS LEVEL 2019-06-24 04:00:00 Yunier Stephens Wiley HEPATIC FUNCTION PANEL 2019-06-24 04:00:00 Yris Lagos Tenriism HC COMPLETE BLD COUNT 2019-06-24 04:00:00 Yunier Stephens Tenriism W/AUTO DIFF Wiley ESTIMATED GFR 2019-06-24 04:00:00 StephensYunier ethodist Wiley POC GLUCOSE 2019-06-23 18:00:00 Milton Ellington HEMODIALYSIS 2019-06-23 12:21:38 Stephens, Yunier [place] ethodist Wiley POC GLUCOSE 2019-06-23 11:18:00 Milton Ellington IR TUNNELED DIALYSIS 2019-06-23 10:03:03 Milton Ellington CATHETER PLACEMENT POC GLUCOSE 2019-06-23 09:54:00 Milton Ellington POC GLUCOSE 2019-06-23 08:19:00 Milton Ellington BASIC METABOLIC PANEL 2019-06-23 05:30:00 Yunier Stephens Tenriism Wiley MAGNESIUM LEVEL 2019-06-23 05:30:00 Yunier Stephens ethodist Wiley PHOSPHORUS LEVEL 2019-06-23 05:30:00 Yunier Stephens Wilye HEPATIC FUNCTION PANEL 2019-06-23 05:30:00 Yris Lagos HC COMPLETE BLD COUNT 2019-06-23 05:30:00 Yunier Stephens Tenriism W/AUTO DIFF Wiley ESTIMATED GFR 2019-06-23 05:30:00 Yunier Stephens ethodist Wiley POC GLUCOSE 2019-06-22 21:30:00 Milton Ellington POC GLUCOSE 2019-06-22 12:28:00 Milton Ellington POC GLUCOSE 2019-06-22 08:38:00 Milton Ellington BASIC METABOLIC PANEL 2019-06-22 04:30:00 Yunier Stephens Tenriism Wiley MAGNESIUM LEVEL 2019-06-22 04:30:00 Stephens, Yunier [place] ethodist Wiley PHOSPHORUS LEVEL 2019-06-22 04:30:00 Yunier Stephens Wiley HC COMPLETE BLD COUNT 2019-06-22 04:30:00 Yunier Stephens Tenriism W/AUTO DIFF Wiley HEPATIC FUNCTION PANEL 2019-06-22 04:30:00 Yris Lagos Tenriism ESTIMATED GFR 2019-06-22 04:30:00 Yris Lagos thodist POC GLUCOSE 2019-06-22 00:07:00 Milton Ellington POC GLUCOSE 2019-06-21 21:03:00 Milton Ellington POC GLUCOSE 2019-06-21 19:26:00 Milton Ellington POC GLUCOSE 2019-06-21 16:33:00 Milton Ellington XR ABDOMEN 1 VW PORTABLE 2019-06-21 16:08:00 Yris Lagos POC GLUCOSE 2019-06-21 11:46:00 Milton Ellington POC GLUCOSE 2019-06-21 08:15:00 Milton Ellington BASIC METABOLIC PANEL 2019-06-21 04:00:00 Yunier Stephens Tenriism Wiley MAGNESIUM LEVEL 2019-06-21 04:00:00 Yunier Stephens ethodist Wiley PHOSPHORUS LEVEL 2019-06-21 04:00:00 Yunier Stephens Wiley ESTIMATED GFR 2019-06-21 04:00:00 Yunier Stephens ethodist [employer] POC GLUCOSE 2019-06-20 21:33:00 Milton Ellington AEROBIC CULTURE 2019-06-20 17:32:00 Milton Ellington GRAM STAIN 2019-06-20 17:32:00 Milton Ellington POC GLUCOSE 2019-06-20 15:51:00 Milton Ellington POC GLUCOSE 2019-06-20 12:25:00 Milton Ellington POC GLUCOSE 2019-06-20 07:34:00 Mliton Ellington HEPATIC FUNCTION PANEL 2019-06-20 04:00:00 Yris [place] BASIC METABOLIC PANEL 2019-06-20 04:00:00 Yunier Stephens Ten[facility]ism Wiley MAGNESIUM LEVEL 2019-06-20 04:00:00 Yunier Stephens ethodist Wiley PHOSPHORUS LEVEL 2019-06-20 04:00:00 Yunier Stephens Tenriism Wiley ESTIMATED GFR 2019-06-20 04:00:00 Yris Lagos thodist POC GLUCOSE 2019-06-19 21:31:00 Milton Ellington CREATININE LEVEL, URINE, 2019-06-19 19:06:00 Javan Mcdowell RANDOM PROTEIN, URINE, RANDOM 2019-06-19 19:06:00 Javan Mcdowell Tenriism POC GLUCOSE 2019-06-19 16:08:00 Milton Ellington POC GLUCOSE 2019-06-19 12:34:00 Milton Ellington POC GLUCOSE 2019-06-19 07:42:00 Milton Ellington ANTI MITOCHONDRIA SCREEN 2019-06-19 00:00:00 Yris Lagos Tenriism HEPATIC FUNCTION PANEL 2019-06-19 00:00:00 Yris Lagos Tenriism BASIC METABOLIC PANEL 2019-06-19 00:00:00 Yunier Stephens Tenriism Wiley MAGNESIUM LEVEL 2019-06-19 00:00:00 Yunier Stephens [...] COMPLETE BLD COUNT 2019-06-18 05:00:00 Yunier Stephens Tenriism W/AUTO DIFF Wiley HEPATITIS B SURFACE AB, [...] 04:00:00 Yris Lagos ALPHA FETOPROTEIN 2019-06-18 04:00:00 Yris Lagos ALPHA-1 ANTITRYPSIN LEVEL 2019-06-18 04:00:00 Yris Lagos ANNE 2019-06-18 04:00:00 Yris Lagos Me thodist GGT 2019-06-18 04:00:00 Yris Lagos Me thodist ESTIMATED GFR 2019-06-18 04:00:00 Yris Lagos Me thodist POC GLUCOSE 2019-06-17 21:17:00 Milton Ellington POC GLUCOSE 2019-06-17 17:07:00 Milton Ellington US ABDOMEN COMPLETE 2019-06-17 16:48:45 Demond Yris Luis n Tenriism US ABDOMINAL DOPPLER 2019-06-17 16:48:35 Demond Yris Cruz on Tenriism US RENAL 2019-06-17 14:26:40 Usha Oquendo Meth odist POC GLUCOSE 2019-06-17 11:38:00 Milton Ellington POC GLUCOSE 2019-06-17 08:22:00 Milton Ellington CELIAC DISEASE REFLEXIVE 2019-06-17 04:53:00 Sharon Loving CASCADE BASIC METABOLIC PANEL 2019-06-17 04:53:00 Yunier Stephens Tenriism Wiley MAGNESIUM LEVEL 2019-06-17 04:53:00 Yunier Stephens [...] Milton Ellington BASIC METABOLIC PANEL 2019-06-16 04:00:00 Angelo Yunier Johnosn Wiley MAGNESIUM LEVEL 2019-06-16 04:00:00 Angelo RosmeryNayan Lefty Madrid ethodist Wiley PHOSPHORUS LEVEL 2019-06-16 04:00:00 Angelo Yunier Johnson Wiley ESTIMATED GFR 2019-06-16 04:00:00 Angelo Yunier Lefty Madrid ethodist Wiley POC GLUCOSE 2019-06-15 20:49:00 Milton Ellington POC GLUCOSE 2019-06-15 16:31:00 Milton Ellington FECAL CALPROTECTIN 2019-06-15 16:30:00 Sharon Loving SPIROMETRY, DIFFUSION, LUNG 2019-06-15 14:29:17 Milton Ellington VOLUMES POC GLUCOSE 2019-06-15 12:27:00 Milton Ellington US CAROTID DUPLEX BILATERAL 2019-06-15 11:31:50 Tashia Alfredo nn Lefty Johnson POC GLUCOSE 2019-06-15 07:24:00 Milton Ellington HC COMPLETE BLD COUNT 2019-06-15 03:38:00 Milton Ellington W/AUTO DIFF BASIC METABOLIC PANEL 2019-06-15 03:38:00 Angelo Yunier Johnson Wiley MAGNESIUM LEVEL 2019-06-15 03:38:00 Angelo Yunier Olea [facility] ethodist Wiley PHOSPHORUS LEVEL 2019-06-15 03:38:00 Yunier Stephens Wiley ESTIMATED GFR 2019-06-15 03:38:00 Angelo Yunier [...] XR CHEST 1 VW PORTABLE 2019-06-12 20:55:50 BriesGuillermo watson ECG ED PRELIMINARY 2019-06-12 19:50:09 Guillermo Jeffery INTERPRETATION URINE CULTURE 2019-06-12 19:49:00 Guillermo Jeffery La thodist HC COMPLETE BLD COUNT 2019-06-12 19:49:00 Guillermo Jeffery W/AUTO DIFF COMPREHENSIVE METABOLIC 2019-06-12 19:49:00 Guillermo Jeffery PANEL TROPONIN 2019-06-12 19:49:00 Milton Ellington B NATRIURETIC PEPTIDE 2019-06-12 19:49:00 Guillermo Jeffery PARTIAL THROMBOPLASTIN TIME 2019-06-12 19:49:00 Guillermo Jeffery Ala (PTT) PROTHROMBIN TIME WITH INR 2019-06-12 19:49:00 Guillermo Jeffery ESTIMATED GFR 2019-06-12 19:49:00 Guillermo Jeffery La thodist URINALYSIS SCREEN AND 2019-06-12 19:49:00 Guillermo Jeffery MICROSCOPY, WITH REFLEX TO CULTURE ECG 12-LEAD 2019-06-12 19:42:16 Guillermo Jeffery La thodist Plan of Care Planned Activity Planned Date Details Comments Source Future Scheduled 2020-06-30 DIABETES: RETINAL EYE [place] [facility] 00:00:00 EXAM [code = DIABETES: RETINAL EYE EXAM] Future Scheduled 2019-12-28 INFLUENZA VACCINE (#1) [facility]:00 [code = INFLUENZA Medical Ce nter VACCINE (#1)] Future Scheduled 2019-11-27 INFLUENZA VACCINE [facility] 00:00:00 [code = INFLUENZA VACCINE] Future Scheduled 2019-04-[address] [facility] 00[facility]00 [facility] (procedure) [code = 74974436] Future Scheduled 2017-07-30 COLONOSCOPY SCREENING [place] [facility] 00:00:00 [code = COLONOSCOPY SCREENING] Future Scheduled 2017-07-30 SHINGLES VACCINES (#1) [facility] [place] [facility] 00:00:00 [code = SHINGLES VACCINES (#1)] Future Scheduled 2002-07-[address] [facility] (procedure) [code = [facility] Center 10958761] Future Scheduled 1983 COVID-19 VACCINE (#1) [place] [facility] 00:00:00 [code = COVID-19 VACCINE (#1)] Future Scheduled 1977-07-30 DIABETIC FOOT EXAM [place] [facility] 00:00:00 [code = DIABETIC FOOT EXAM] Future Scheduled 1977-07-[address] EXAM [facility] - Test 00:00:00 [code = DIABETIC EYE Medical Center EXAM] Future Scheduled 1977-07-[address] [facility]00 examination Medical Center (regime/therapy) [code = 649672809] Future Scheduled 1977-07-30 Urine screening for [facility] - Test 00:00:00 protein (procedure) Medical Center [code = 222312139] Future Scheduled 1973-07-[address] [facility] - Test 00:00:00 0-64 YRS (1 of 1 - Medical C enter PPSV23) [code = PNEUMOCOCCAL VACCINE 0-64 YRS (1 of 1 - PPSV23)] Future Scheduled [address] [facility] - Test 00:00:00 malignant neoplasm of Medica l Center colon (procedure) [code = 635886092] Encounters Start End Encounter Admission Attending Care Care Encounter Source Date/Time Date/Time Type Type Clinicians Facility Department ID 2020-04-15 2020-04-15 [id number] 21:22:00 22:49:00 Sonia Wang [id number] [place] 4.2.7.2.686 [place] [id number] 2020-04-12 2020-04-13 [facility] [id number] 23:23:00 02:16:00 Madhavi Wang 350.1.13.10 [place] 4.2.7.2.686 [place] [id number] 2020-03-06 2020-03-06 Office Ke [facility] [id number] 10:15:17 11:17:02 Visit Esteban Wang 350.1.13.10 [place] 4.2.7.2.686 Profsindyio [id number] [facility] 059 [facility] 2019-12-28 2019-12-28 Emergency [facility] [id number] [place] 00:00:00 00:00:[address] 2019-06-12 2019-07-16 Inpatient CHANDANA, [facility] [id number] [place] 00:00:00 00:00:00 MILTON [address] Results Test Description Test Time Test Comments Results Result Comments Source ECG 12 lead 2019-12-28 23:33:31 Test Item Value Reference Range Interpretation Comme nts Ventricular rate (test code = 253) 81 Atrial rate (test code = 255) 81 ME interval (test code = 266) 134 QRSD [...] 09:41,-Left posterior fascicular block is now seen- [facility] MethodistCT Chest Wo Fnnkwexh2471-34-42 21:48:29Hm Interface, Radiology Results Incoming - 12/28/2019 9:51 [facility] CONTRASTCLINICAL INDICA TION: coughTECHNIQUE: Multidetector [...] may represent some subcutaneous bruising for cellulitis. [facility]-XD26NLYDTrniipl MethodistCT Head Wo Eruzltdq4497-72-75 21:34:22 Interface, Radiology Results - 12/28/2019 9:37 PM CDTEXAM: [...] for acute intracranial abnormality.[id number] MethodistXR Chest 1 Dauuxssw9689-97-03 20:56:20Hm Interface, Radiology Results Incoming - 12/28/2019 8:59 PM CDTEXAMINATION: XR CHEST 1 PORTABLECLINICAL HISTORY: sobCOMPARISON: 06/12/2019.IMPRESSION:Right central venous catheter terminates overthe right atrium.Low lung volumes. Vascular crowding and/or congestion. No focal consolidation.No pleural effusion or pneumothorax. The cardiomediastinal silhouette is normal.No acute osseous abnormalities.[facility]-[id number] [facility] ED Preliminary Interpretation - Not an Rnhad7947-37-02 20:54:49 Test Item Value Reference Range Interpretation Comments BRENT (test code = BRENT) Suze Palomino MD 12/30/2019 2:41 [facility] ED Preliminary Interpretation - Not an OrderPerformed by: Suze Palomino MDAuthorized by: Suze Palomino MD ECG reviewed by ED Physician in the absence of a geopolitics teacher: yes Interpretation: Interpretation: abnormal Rate: ECG rate: 81 ECG rate assessment: normal Rhythm: Rhythm: sinus rhythm Conduction: Conduction: abnormal Abnormal conduction: complete RBBB Lab Interpretation Abnormal (test code = 22136-6) Lefty Johnson natriuretic rotfybs7825-43-68 20:16:55 Test Item Value Reference Range Interpretation Comments BNP (test code = 02168-6) 318 pg/mL 0-100 H Lab Interpretation (test code = Abnormal 23213-5) [place] ZeluxnehnWxaddfkd5382-11-59 20:16:40 Test Item Value Reference Range Interpretation Comments Troponin (test code 0.016 ng/mL 0-0.04 In patie nts suspected = 12521-4) of having a augusta cardial infarction, marajuanjo delcid with all other appro priate clinical [...] ss than 0.020 ng/mL Lefty MethodistComprehensive metabolic akone6024-97-77 20:01:50 Test Item Value Reference Range Interpretation Comments Sodium (test code = 139 135- 148 mEq/L 2951-2) Potassium (test code = 5.3 3.5- 5.0 mEq/L H 2823-3) Chloride (test code = 97 98- 112 mEq/L L 2074-0) CO2 (test code = 2027-) 27 24- 31 mEq/L Anion gap (test code = 15@ANIO 7- 15 mEq/L 67266-2) BUN (test code = 3094-0) 27 mg/dL 6-20 H Creatinine (test code = 3.84 mg/dL 0.7-1.2 H 2160-0) Glucose (test code = 252 mg/dL 65-99 H 2345-7) Calcium (test code = 8.8 mg/dL 8.3-10.2 96661-7) Protein (test code = 6.9 g/dL 6.3-8.3 -[place] n 2885-2) 4.6-7.0 g/dL1 week 4.4-7 .6 g/dL7 months-1y ear 5.1-7 .3 g/dL1-2 years 5.6-7 .5 g/dL>3 years 6.0-8 .0 g/wB46-152 6.3-8 .3 g/dL Albumin (test code = 2.7 g/dL 3.5-5 L 1751-7) A/G ratio (test code = 0.6 0.7-3.8 L 1759-0) Alkaline phosphatase 175 U/L 40-129 H (test code = 6768-6) AST (test code = 1920-8) 35 U/L 10-50 ALT (test code = 1742-6) 29 U/L 5-50 Total bilirubin (test 0.3 mg/dL 0-1.2 code = 1975-2) Lab Interpretation (test Abnormal code = 97549-1) Oela MethodistEstimated [id number] 20:01:41 Test Item Value Reference Range Interpretation Comments Estimated GFR (test 17 mL/min/1.73 m2 vE rowe Units code = 5488) InterpretationG 1 >=90 Cora l or highG2 60-89 Mildly decrease dG3a 45-59 Mil dly to moderately decr pvqozA9v 30-44 Moderately to s everely decreasedG4 15-29 Severe ly decreasedG5 <15 Kidney jesica lureThe eGFR was calcul ated using the [facility] Kidney Disease Epidemiology Collaboration ( CKD-EPI) equation. Interpretation is based on recommendati ons of the National Ki dney Foundation-Kidn ey Disease Outcome s Quality Initiat christa (NKF-KDOQI) pub lished in 2013. Lab Interpretation Abnormal (test code = 65219-6) Olea MethodistCBC with platelet and hiywsjeokvko4287-30-92 19:42:47 Test Item Value Reference Range Interpretation Comments WBC (test code = 33532-7) 5.65 4.50- 11.00 k/uL RBC (test code = 90026-7) 3.75 m/uL 4.4-6 L HGB (test code = 718-7) 12.7 g/dL 14-18 L HCT (test code = 4544-3) 36.6 % 41-51 L MCV (test code = 787-2) 97.6 fL 82-100 MCH (test code = 785-6) 33.9 pg 27-34 MCHC (test code = 786-4) 34.7 g/dL 31-37 RDW - SD (test code = 50.0 fL 37-55 90359-6) MPV (test code = 67294-8) 12.9 fL 8.8-13.2 Platelet count (test code 152 150- 400 k/uL = 00251-0) Nucleated RBC (test code 0.00 /100 WBC = 88620-3) Neutrophils (test code = 65.7 % 39-69 15175-7) Lymphocytes (test code = 24.6 % 25-45 L 36139-2) Monocytes (test code = 5.3 % 0-10 01451-5) Eosinophils (test code = 3.0 % 0-5 27502-4) Basophils (test code = 0.7 % 0-1 63505-2) Immature granulocytes 0.7 % 0-1 "Immat ure (test code = 36776-0) granul ocytes" (promyelocytes, myelocytes, metamyelocytes) Lab Interpretation (test Abnormal code = 26385-3) [facility] thtnrva5461-84-56 12:30:05 Test Item Value Reference Range Interpretation Comments POC glucose (test code = 253 mg/dL 65-99 H Ope rator Name: 31498-4) Ney iLao vice ID: [id number] able: [facility] Notified [employer] assistant manager Interpretation (test Abnormal code = 91252-7) Olea [facility] metabolic bljqa9527-72-58 07:23:50 Test Item Value Reference Range Interpretation Comments Sodium (test code = 2951-2) 142 135- 148 mEq/L Potassium (test code = 2823-3) 4.3 3.5- 5.0 mEq/L Chloride (test code = 2075-0) 105 98- 112 mEq/L CO2 (test code = 2027-9) 27 24- 31 mEq/L Anion gap (test code = 31945-6) 10@ANIO 7- 15 mEq/L BUN (test code = 3094-0) 46 mg/dL 6-20 H Creatinine (test code = 2160-0) 4.61 mg/dL 0.7-1.2 H Glucose (test code = 2345-7) 189 mg/dL 65-99 H Calcium (test code = 64358-1) 8.7 mg/dL 8.3-10.2 Lab Interpretation (test code = Abnormal 90082-3) [place] MethodistPhosphorus [id number] 07:23:49 Test Item Value Reference Range Interpretation Comments Phosphorus (test code = 2777-1) 4.3 mg/dL 2.4-4.5 [place] MethodistMagnesium cwfla9279-08-99 07:17:31 Test Item Value Reference Range Interpretation Comments Magnesium (test code = 09015-3) 1.9 mg/dL 1.6-2.6 [place] MethodistHypersensitivity pneumonitis [id number] 10:14:04 Test Item Value Reference Interpretation Comments Range Aspergillus flavus None Detected None-Detected Testing includes (test code = 31573-8) antibo dies directed at Aspergillus flavus, Aspergi llus fumigatus #2, Aspergillus fum igatus #3, Saccharomon ospora viridis, and Thermoactinomyc es candidus. Aspergillus fumigatus None Detected None-Detected #2 (test code = 21148-5) Aspergillus fumigatus None Detected None-Detected #3 (test code = 72934-6) Saccharomonospora None Detected None-Detected viridis (test code = 08361-7) Thermoactinomyces None Detected None-Detected Performe d by SRINIVAS barlow (test code = Terry hummel,500 82893-0) [place] [address] vcb .arupl mymxlog, Roberto Almaguer MD, La b. Director Thermoactinomyces NOT PERFORMED saccharii (test code = WITH THIS 41095-6) PANEL [facility] MethodistHypersensitivity pneumonitis [id number] 01:53:46 Test Item Value Reference Interpretation Comments Range Aspergillus fumigatus None Detected None-Detected #1 (test code = 6808-0) Aspergillus fumigatus None Detected None-Detected #6 (test code = 6809-8) Aureobasidium None Detected None-Detected Testing incl udes pullulans (test code = antib odies directed 6810-6) at Aureobasiyolyu m pullulans, Aspergillus fum igatus #1, Aspergillus fumigatus #6, Micropolyspora faeni, [place] Serum an d Thermoactinomyc es vulgaris #1. [place] serum (test None Detected None-Detected code = 6733-0) Micropolyspora faeni None Detected None-Detected (test code = 6818-9) Thermoactinomyces None Detected None-Detected Performe d by SRINIVAS shook #1 (test code Labor atories,500 = 6821-3) [place], [place] [address] qjt .arupl InspireMD[employer], Roberto Almaguer MD, Juanita jane. Director [place] MethodistFerritin ylcpo0072-42-85 14:34:03 Test Item Value Reference Range Interpretation Comments Ferritin level (test code = 2276-4) 214 ng/mL 30-400 [place] MethodistTotal iron binding oqpshyve1555-66-93 14:29:17 Test Item Value Reference Range Interpretation Comments Iron level (test code = 2498-4) 72 ug/dL 59-158 Iron binding capacity (test code = 298 ug/dL 669-560 2343-7) % Saturation (test code = 2502-3) 24.2 % 20-40 [place] MethodistAnti-neutrophilic cytoplasmic Abs qjppa8155-55-49 15:24:12 Test Item Value Reference Range Interpretation Comments ANCA screen (test code = 3472) Negative Negative Brain[place] MethodistFL Modified Barium Dapihyh0194-15-96 15:02:46Hm Interface, Radiology Results - 07/09/2019 3:05 [...] refer to Speech Pathology report for further details.[facility]-[id number] and approved by executive vice president/fellow: Eugenia Escamilla M.D.I, Adriana Morales MD, personally reviewed the images and resident's/fellow's findings and agree with the final report.[facility] MethodistDNA Ab fsngfd5070-23-85 14:55:49 Test Item Value Reference Range Interpretation Comments DNA Ab screen (test code = 1297) Not Detected Not-Detected [place] MethodistHepatic function rsjgf1131-58-94 07:12:14 Test Item Value Reference Range Interpretation [...] g/dL 1-2 years 5.6-7.5 g/dL>3 years 6.0-8.0 g/qZ29-799 6.3-8. 3 g/dL ALT (test code = 1742-6) 20 U/L 5-50 AST (test code = 1920-8) 20 U/L 10-50 Lab Interpretation (test Abnormal code = 76874-0) [place] MethodistImmunoglobulin [id number] 18:32:35 Test Item Value Reference Range Interpretation Comments IgG (test code = 2465-3) 1005 mg/dL 700-1600 [place] MethodistCentromere dnbcxtaz9600-63-13 18:10:06 Test Item Value Reference Range Interpretation Comments Centromere antibody <0.2 0.0- 0.9 AI (test code = 8068-9) Centromere antibody Negative AI Anti-kyrie tromere interp (test code = antibodi es are found 54889-4) in patients wit h systemic sclero sis (SSc or sclerod obinna), especially for those with limited cu taneous or CREST syndro me. Anti-centromere antibodies may also be found in patien ts with other rheumatic or connective tiss ue diseases. [place] MethodistScl-70 dnwjfihm0534-14-34 18:10:06 Test Item Value Reference Range Interpretation Comments Scleroderma SCL-70 Ab <0.2 0.0- 0.9 AI (test code = 10667-6) Scl-70 antibody interp Negative AI Anti- Scl-70 (test code = 5268) (topoisom erase I) antibodies are found in patients with s ystemic sclerosis (SSc or scleroderma), a nd have been reported t o be predictive of d iffuse cutaneous invol vement. Anti-Scl-70 ant ibodies may also be pre sent in patients with s ystemic lupus erythemat osus (SLE). Olea MethodistSS-A [id number] 18:10:06 Test Item Value Reference Range Interpretation Comments Sjogren's SS-A <0.2 0.0- 0.9 AI antibody (test code = 70158-5) SS-A antibody interp Negative AI SS-A an tibody is (test code = 2235) sensitive for Sjogren's syndrome, but m ay also be positive with s ystemic lupus erythemat osus (SLE), and syst emic sclerosis. [place] MethodistSS-B xahexmpn6066-26-29 18:10:05 Test Item Value Reference Range Interpretation Comments Sjogren's SS-B <0.2 0.0- 0.9 AI antibody (test code = 3001) SS-B antibody interp Negative AI SS-B/La antibody is seen (test code = 2237) in patien ts with Sjogren syndrome, but m ay also be positive with s ystemic lupus erythemat osus (SLE), and syst emic sclerosis. [facility] Cardiac Hgoeagyp5111-67-21 19:51:26Hm Interface, Radiology Results - 07/06/2019 7:54 [...] characterization with CT of the chest is recommendedBrainard MethodistCv cta coronary arteries w contrast and ffr if dzdesw5886-81-15 17:59:00Interface, Radiology Results In - 07/06/2019 5:59 PM CDT Nuclear Cardiology and Cardiac CT [address] [place] [address] CTA Coronary Arteries ReportPat.Name: PAOLA KWONG Pat.ID: [id number] .Date: 07/06/2019 Refer.MD: MILTON ELLINGTON MDExam Time: 1:09:00 PMStudy Type:CTA Coronary Arteries Height: 67in Weight: 212lb BSA: 2.07 m2 Age: 6 1965,53Y Sex: MALE BP: 151/83 HR: 54 bpm Nuclear Tech:RT Yuni(R)(CT)Pat. Stat.:Inpatient Tape Vol: 33.2, CPT - 4: CCTA w Thoracic Aorta (NonCongenital) [id number];68177Sicazkn Event ID:[id number] Order ID: [id number] Reason for Study:Pre-Op CABG, CAD History / Clinical:Coronary artery disease, Diabetes, Hyperlipidemia,Hypertension, S/P PCI 07/2007, Liver cirrhosis/Hepatitis CProcedures: CT Prospective(phases)Race: C SUMMARY: Technique: IV contrast was administered and sequential 0.[address] cutswere obtained through the chest using the Siemens Somatom Force CTscanner. Image post-processing consisting of multiplanar and 3Dreconstructions were performed using the Armasightworkstation. Interactive image viewing, volumetric display andanalysis were [...] refer to the separate radiology report in [facility] for anyaddi tional non-cardiovascular findings. STUDY QUALITYThe study quality is good.COMMENTSNone. FINDINGS: Signed 07/06/2019 05:59 Bethany Olvera MethodistSurgical pathology aanskjl2424-02-90 13:32:02 Test Item Value Reference Range Interpretation Comments Case number (test code = [id number]) Surgical pathology See link below for report (test code = PDF Lab Report 2255) Result status (test code This is Final Report = [id number]) for [id number] Olea MethodistHIV Ag/Ab hvxyenhsxtc2099-38-20 09:39:34 Test Item Value Reference Range Interpretation Comments HIV Ag/Ab combination (test code Non-reactive Non-reactive = 5299) [place] MethodistProthrombin time with [id number] 07:38:02 Test Item Value Reference Range Interpretation Comments Prothrombin time (test 14.5 11.5- 14.5 sec code = 5902-2) INR (test code = 1.1 [facility] 50229-8) Normalized Rati o (INR) is a therapeutic m onitoring tool for patien ts who are stable on oral anticoagulant t herapy. An INR of 2.0-3.0 is suggested for d eep vein thrombosis/pulm onary embolism. [facility] MethodistC4 complement pywenomrd2643-54-66 07:25:14 Test Item Value Reference Range Interpretation Comments C4 complement (test code = 4498-2) 34 mg/dL 10-40 [facility] MethodistC3 complement aghuflmxj3097-68-68 07:25:14 Test Item Value Reference Range Interpretation Comments C3 complement (test code = 4485-9) 133 mg/dL 90-180 [place] MethodistRheumatoid rbkgly8605-17-16 07:25:13 Test Item Value Reference Range Interpretation Comments Rheumatoid factor (test code = 27703-3) <10 0- 13 IU/mL [facility] MethodistTransthoracic Echocardiogram Complete, (w Contrast, Strain and 3D if needed)2019-07-05 10:49:00Interface, Radiology Results In - 07/05/2019 10:49 AM CDT Echocardiography Report [address] [address], [place] [address] Pat.Name: PAOLA KWONG Rebecca.ID: [id number].Date: 07/05/2019 Refer.MD: MILTON ELLINGTON MDExam Time: 7:54:00 AM Study Type:Routine Echo Height: 67in Weight: 212lb BSA: 2.07 m2 Age: 4 1965,53Y Sex: MALE BP: 157/71 Sonogrphr: Audrey Bella, TRAVIS, RVSPat. Stat.:Inpatient Room: M3A Study Status:Final Echo Event ID:[id number] Order ID: [id number] Reason for Study:Chest pain, suspected cardi ac etiologyHistory / Clinical:Chest Pain, Diabetes, Hyperlipidemia, Hypertension,Cirrhosis, [place], Infectious Viral HepatitisProcedures: 2D Echo, Colorflow DopplerRace: [...] estimate PA systolic pressure. MEASUREMENTS: 2DParasternal Long [place] Ao An 2 cm LVPWd 1.5 cm [...] Signed 07/05/2019 10:49 Bethany Rain MethodistVancomycin level, wagsif5169-46-60 06:48:15 Test Item Value Reference Range Interpretation Comments Vancomycin, random (test code = 11.9 ug/mL 61693-1) [place] MethodistVENIPUNC NEED PHYS SKILL,DX OR [id number] 14:59:18SEstela lim RN 07/02/2019 3:03 PMMidlineDate/Time: 07/02/2019 [...] Catheter Length (cm): 10 Catheter Lot Number: [id number] Catheter Expiration Date: 1Procedure Details: Landmarks identified: [...] of procedure: Tolerated well, no immediate complicationsLefty Hinsoncomycin level, trough 2019-07-01 15:28:35 Test Item Value Reference Range Interpretation Comments Vancomycin, trough 23.0 ug/mL 10-20 HH Therapeut ic Ranges: (test code = 69395-3) Peak 30.0 - 40.0 ug/mL T rough 10.0 - 20.0 ug/mL Lab Interpretation Abnormal (test code = 99764-6) Lefty Gilmore Transjugular Liver Wqfoue4320-78-98 16:47:45Hm Interface, Radiology Results 06/30/2019 4:50 PM CSTPerforming RadiologistJeveronica Lauren MD AssistantsNone Anesthesia TypeModerate sedation was administered by the procedure nurse and monitored by the procedure physician for a wimp-yi-grai sedation time of 20 minutes. Lidocaine 1% was usedfor local anesthetic. Pre Procedure Hxdxfjwoq56-qnbs-nfs man with possible cirrhosis.. Post Procedure DiagnosisStatus [...] for local anesthetic. Using real-time ultrasound guidance, m31-qckti micropuncture needle was used to access the [...] A long 9-Colombian vascular sheath was then placed,andadvanced over the guidewire into the right atrium. Right atrial pressure measures were then obtained. A 5-Colombian multipurpose catheter was advanced over the guidewire and used to select the right hepatic vein. A CO2 right hepatic venogram was performed. Pressure measurements were also obtained in boththe free and wedge positions. The 9-Colombian vascular sheath was then advanced into the right hepatic vein. The transjugular liver biopsy system was advanced through the 9-Colombian vascular sheath, and multiple 18-gauge core liver biopsy specimens were obtained and submitted to pathology. The transjugularliver biopsy system and 9-Colombian vascular sheath were [...] hepatic: 11 mmHg Wedge hepatic: 15 mmHg [id number] MethodistAnti smooth muscle Ab gkbwii6046-10-24 14:32:24 Test Item Value Reference Range Interpretation Comments Anti smooth muscle Ab screen Not Detected Not-Detected (test code = 262) Lefty Gilmore Tunneled Dialysis Catheter Roerxzjeg2394-48-18 07:28:35Hm Interface, Radiology Results 06/24/2019 7:31 AM CSTPERFORMING RADIOLOGIST:Will Petersen MD ASSISTANTS:None. ANESTHESIA TYPE:Moderate sedation was administered by the procedure nurse and monitored by the procedure physician for a total muuv-ou-muao sedation time of 8 minutes. Lidocaine 1% [...] cavoatrial junction. PLAN:-Catheter is ready for immediate use.[facility]-[id number] Methodunm hospitalGram tggjc9581-59-68 21:21:01Gram stain isolateRare WBC'sMany Gram negative rodsRare Gram positive cocci in pairs Comment: Specimen InformationSpecimen Source: DrainageSpecimen Site: Not otherwise specified [facility] MethodistAnti mitochondria ohnsoy0349-81-77 15:12:05 Test Item Value Reference Range Interpretation Comments Anti mitochondria screen (test Not Detected Not-Detected code = 1686) [facility] 1 Vw Tjoynzhb8181-10-13 18:02:41Hm Interface, Radiology Results Incoming - 06/21/2019 [...] and pelvis are unremarkable.The lung bases are clear.[facility]-[id number] MethodistProtein, urine, qckkic2974-32-35 20:50:36 Test Item Value Reference Range Interpretation Comments Protein, urine random (test code = 584 mg/dL 2888-6) [facility]Creatinine level, urine, vcnyvc0623-79-10 20:39:45 Test Item Value Reference Range Interpretation Comments Creatinine, urine, random (test code 99 mg/dL = 86953-4) [facility]Hepatitis B surface Ab, uvwvlcfcsgcb6664-82-76 18:16:55 Test Item Value Reference Range Interpretation [...] public refer to MMWR March 292004/Vol. 54(No. 16);05-20 , and for healthcare work ers refer to MMWR March 292012/Vol. 62(No. 10);- .Reference Interval: anti- HBs 9.99 IU/L or less .. ..... Avpjvpza87.00 I U/L or greater .... PositiveResults greater than 1,000.00 I U/L are reported as gre ater than 1,000.00 IU/L. This assay should not be u sed for blood donor scr eening, associated re-e ntry protocols, or f or screening Human Cell, Tis sues and Cellular and Ti ssue-Based Products (HCT/P ).Performed by [employer] Steve bustos,[address] [facility], [place] [address] trk .[employer] , Roberto Almaguer MD, Lab. Director Lefty JohnsonUrine bjjudsu3289-43-18 10:35:14 Test Item Value Reference Range Interpretation Comments Urine culture No growth Specimen isolate (test after 24 InformationSpe [facility] code [facility] 62601-8) hours Source: Urin eSpecimen Site: Clean cat [facility] [id number] 13:23:19 Test Item Value Reference Range Interpretation Comments ANNE screen (test Negative Negative Test perfor med using NOVA code = 550) Lite DAPI ANNE k it (Indirect Immunofluoresce nce Assay) for Anti-Nuclea r Antibody on [employer] QUANTA-Ly ser 160 Analyzer. Lefty HaywoodistHepatitis B core antibody aeojh2791-26-37 08:03:43 Test Item Value Reference Range Interpretation Comments Hepatitis B core total Ab (test Non-reactive Non-reactive code = 15159-6) [facility] MethodistHepatitis B core antibody [id number] 08:03:43 Test Item Value Reference Range Interpretation Comments Hepatitis B core IgM (test code Non-reactive Non-reactive = 91991-9) [facility] MethodistHepatitis A antibody [id number] 08:03:43 Test Item Value Reference Range Interpretation Comments Hepatitis A IgM (test code = Non-reactive Non-reactive 61165-2) [facility] MethodistHepatitis C azknkaar9578-51-40 08:03:43 Test Item Value Reference Range Interpretation Comments Hepatitis C Ab (test code = Non-reactive Non-reactive 32066-0) [facility] MethodistAmmonia tazln9466-43-49 08:01:41 Test Item Value Reference Range Interpretation Comments Ammonia (test code = 1841-6) 63 umol/L 16-60 H Lab Interpretation (test code = Abnormal 71049-1) [facility] MethodistHepatitis B surface vdhvkjv4920-71-72 07:28:04 Test Item Value Reference Range Interpretation Comments Hepatitis B surface Ag (test Non-reactive Non-reactive code = 5195-3) [facility] MethodistHepatitis B surface cqxqpzoz2111-05-91 07:28:04 Test Item Value Reference Range Interpretation Comments Hepatitis B surface Ab (test Non-reactive Non-reactive code = 39364-1) [facility] MethodistUrinalysis screen and microscopy, with reflex to culture 2019-06-18 07:26:53 Test Item Value Reference Range Interpretation Comments Specimen site (test code = Clean catch 8630122) Color, UA (test code = 5778-6) Yellow Appearance, UA (test code = Cloudy 5767-9) Specific gravity, UA (test code = 1.011 1.001-1.035 5811-5) pH, UA (test code = 5803-2) 5.0 5.0-8.5 Protein, UA (test code = 84869-1) 3+ Negative A Glucose, UA (test code = 34324-9) 1+ Negative A Ketones, UA (test code = 2514-8) Negative Negative Bilirubin, UA (test code = Negative Negative 5770-3) Blood, UA (test code = 5794-3) Small Negative A Nitrite, UA (test code = 5802-4) Negative Negative Urobilinogen, UA (test code = <2.0 <2.0 47806-7) Leukocyte esterase, UA (test code Negative Negative = 5799-2) WBC, UA (test code = 5821-4) 14 0- 1 /HPF H RBC, UA (test code = 98771-5) 1 0- 5 /HPF Bacteria, UA (test code = Few None seen 72131-0) WBC clumps, UA (test code = Few A 95447-5) Yeast, UA (test code = 98732-9) None seen Yeast with pseudohyphae, UA (test None seen code = 27116-6) Amorphous crystals (test code = Few 69896-9) Granular casts, UA (test code = 1 0- 1 /LPF 5793-5) Lab Interpretation (test code = Abnormal 37178-5) Lefty MethodistAlpha fgpadvefieq9326-08-49 07:19:58 Test Item Value Reference Range Interpretation Comments Alpha fetoprotein 1.6 ng/mL 0-8.3 The Lexis 8000 AFP (test code = immunoassay was used. 83789-5) Results obtaine d with different assay methods or kits should not be used interchang eably and may be differen t. Lefty MethodistCeruloplasmin pqzpm1940-55-71 07:17:32 Test Item Value Reference Range Interpretation Comments Ceruloplasmin (test code = 2064-4) 22 mg/dL 15-30 Ole[place] MqvzlfqemORW3334-16-57 07:17:31 Test Item Value Reference Range Interpretation Comments GGT (test code = 2324-2) 80 U/L 0-59 H Lab Interpretation (test code = Abnormal 38540-3) Lefty MethodistAlpha-1 antitrypsin ukugk8191-21-39 07:17:31 Test Item Value Reference Range Interpretation Comments Alpha-1 antitrypsin (test code = 166 mg/dL 90-200 6771-0) Lefty JohnsonTissue transglutaminase Ab, CcR6030-67-40 17:53:26 Test Item Value Reference Range Interpretation Comments Tissue 1 U/mL 0-3 No further sheldon ac transglutaminase Ab, testing to be IgA (test code = 2324) perfo rmed.INTERPRETIV E INFORMATION: Tissue Transglutaminas e (tTG) Antibody, IgA3 U/mL or less: Negative4-10 U/ mL: Weak Gimcprut99 U/mL or greater: PositivePresenc e of the [...] for disease.Perform ed by [facility],[address] [facility] [place] [address] rbj .Zendrivel mymxlog, Roberto Almaguer MD, Juanita jane. Director BRENT (test code = BRENT) CO2 called with reae back to Yu Dialman/ [facility] at 06/16/2019 08:04 by NEFTALY. [facility] MethodistUS Abdomen Wvbmzdik2630-11-67 16:55:54Hm Interface, Radiology Results Incoming - 06/17/2019 [...] to participate in the care of your patient.[facility]-[id number] MethodistUS Abdominal Dhtyenj7683-91-51 16:52:25Hm Interface, Radiology Results Incoming - 06/17/2019 4:55 PM CSTEXAMINATION: US ABDOMINAL DOPPLERCLINICAL [...] artery and vein are identified and are patent.[facility]-[id number] MethodistUS Renal 2019-06-17 14:29:49Hm Interface, Radiology Results Incoming - 06/17/2019 2:32 PM CSTEXAMINATION: US RENALCLINICAL HISTORY: Flank pain stone disease suspectedCOMPARISON: None.IMPRESSION: The right kidney measures 12cm in length.The left kidney measures 13.9 cm in length.There is no renal mass, stone, cyst, or hydronephrosis. Echogenicity is normal.The urinary bladder is unremarkable.[facility]-[id number] MethodistCeliac disease reflexive cascade 2019-06-17 07:55:20 Test Item Value Reference Range Interpretation Comments IgA (test code = 449 mg/dL 68-408 H Total IgA i s within 2458-8) or higher than established ran ges. Tissue Transglutaminas e, IgA to follow.REFERENC E INTERVAL: Immunoglobulin AAccess complet e set of age- and/or gender-specific reference inter vals for this test i n the [employer] [employer] [facility] Test Directory ([employer]).P erfor med by [facility],[address], [place] [address] dmi .[employer], Roberto Almaguer MD, Juanita jane. Director BRENT (test code = BRENT) CO2 called with reae back to Yu Kwon/ [facility] at 06/16/2019 08:04 by JN1. Lab Interpretation Abnormal (test code = 33198-8) Lefty Rizocal zutxumlonttu4933-61-37 13:53:32 Test Item Value Reference Range Interpretation Comments Fecal calprotectin (test code = 57.64 <15.6-120mg/kg 38397-2) Lefty Plummer carotid jmnnwc7982-07-00 20:05:00Interface, Radiology Results In - 06/15/2019 8:06 PM [facility] Vascular Ultrasound Laboratory Carotid Artery Duplex [address] [address], [place] [address] For quality assurance supervisor trim purposes, the categorization of the degree of the stenosis of this exam is based on criteria described in the IAC carotid stenosis grading white paper( www.intersocietal.org/Vascular) and Thanh Nava., Derrick Fountain., et al. Carotid artery stenosis: wagner-scale and Doppler US diagnosis--Society of Radiologists in Ultrasound Consensus Conference. Radiology. 2003 Nov; 229(2):340-6. Pat.Name: PAOLA KWONG Pat.ID: [id number] .Date: 06/15/2019 Refer.MD: MILTON ELLINGTON MDExrebeca Time: 11:04:00 AM Study Type:Carotid Height: 67in Weight: 212lb BSA: 2.07 m2 Age: 6 1965,53Y Sex: MALE BP: 116/68 Sonogrphr: Suad Greco RDCS, RVTPat. Stat.:Inpatient Room: [address] Vol: ED, CPT - 4: 81717 Echo Event ID:[id number] Order ID: [id number] Reason for Study:Pre-op evaluation History / Clinical:Smoker, CAD, S/p IN, DM, HTN, HLD, Liver cirrhosis,Chest pain, ObesityProcedures: [...] ICA/CCA PSV 0.564 Sign ed 06/15/2019 08:05 PMZtaras Vallejo MD, [facility] MethodistSpirometry, diffusion, lung zzeubao0834-60-76 14:29:17 Test Item Value Reference Range Interpretation [...] = 5421) DLCO LLN (test code = 21. 5422) DLCO % Pre of Predicted 52.9 % (test code = 5424) DLCOc Predicted (test code 29.25 = 5428) DLCOc LLN (test code = 21. 5429) DLCOc % Pre of Predicted 56.3 [...] Predicted 68.3 % (test code = 5445) [facility]Gastrointestinal khaqc0397-14-53 13:46:31Gastrointestinal panelNegative for all pathogens tested:Negative for [...] Comment: Specimen InformationSpecimen Source: StoolSpecimen Site: Nonpreserved [facility] MethodistManual eydjzftftvvq0613-97-61 08:23:11 Test Item Value Reference Range Interpretation Comments Manual differential (test code = PERFORMED 14684-3) Neutrophils (test code = 53.0 % 39-69 00088-6) Lymphocytes (test code = 36.0 % 25-45 99556-9) Monocytes (test code = 70917-5) 6.0 % 0-10 Eosinophils (test code = 4.0 % 0-5 43938-4) Basophils (test code = 33263-3) 1.0 % 0-1 Metamyelocytes (test code = 0 % 740-1) Promyelocytes (test code = 0 % 783-1) Platelet slide review (test code Rebekah adequate = 32328-1) Anisocytosis (test code = 702-1) Moderate Polychromasia (test code = Moderate 94316-6) Ovalocytes (test code = 774-0) Moderate Brain[facility] MethodistHemoglobin [id number] 08:03:34 Test Item Value Reference Range Interpretation Comments Hemoglobin A1C (test 12.6 % 4-5.6 H HbA1c c utoffs for code = 68070-5) diagnosing diabetes:4.0% - 5.6% = normal5.7% - 6.4% = increased risk for diabetes (prediabetes)9> =6.5% = tqhgruwn9Uunz s for glycemic contro l (ADA 2016)< 7.0% Ta rget for non adults with win betes. More or less stringent targe ts may be appropriate for individual virginie ents. <7.5% Target for Children and adolescents wit h type 1 diabetes. Lab Interpretation (test Abnormal code = 67909-1) Olea MethodistT4, jbht5535-69-46 06:34:11 Test Item Value Reference Range Interpretation Comments T4, free (test code = 3024-7) 0.8 ng/dL 0.9-1.7 L Lab Interpretation (test code = Abnormal 70061-9) [facility] MethodistThyroid stimulating ldmtjbn9737-39-34 06:34:11 Test Item Value Reference Range Interpretation Comments TSH (test code = 3016-3) 1.95 0.27- 4.20 uIU/mL [facility] MethodistLipid wfnpk2214-04-90 06:30:05 Test Item Value Reference Interpretation Comments [...] (mg/dL) interpretation (test < 200 code = 64183-7) Desirable 200-239 Borderline -high >=240 Hi gh [...] mg/dL) Lab Interpretation Abnormal (test code = 32615-9) [facility] MethodistInfluenza dbloffm3420-35-39 00:42:57 Test Item Value Reference Range Interpretation Comments Influenza Negative for Specimen antigen (test Influenza A/B [facility] ecimen code = 60934-7) antigen. Source: [facility] Site: Right Brain[facility] MethodistPartial thromboplastin time, leuqqgsya0894-47-16 20:31:46 Test Item Value Reference Range Interpretation Comments PTT (test code = 28.1 23.0- 36.0 [place] [address]-0) unfractionated heparin is61.0-112.0 se conds which corresponds to Anti-Xa0.3-0.7 U/ml. [facility] MethodistPOCT-GLUCOSE [id number] 12:50:00 Test Item Value Reference Range Interpretation Comments POC-GLUCOSE METER 119 mg/dL 70-110 H TESTED AT [facility] 6720 (BEAKER) (test code = [place] 1538) [address] BASIC METABOLIC [id number] 06:16:00 Test Item Value Reference Range Interpretation [...] PATIEN TS. CBC W/PLT COUNT & AUTO [id number] 05:42:00 Test Item Value Reference Range Interpretation [...] PERCENT (BEAKER) (test code = 2801) POCT-GLUCOSE [id number] 20:34:00 Test Item Value Reference Range Interpretation Comments POC-GLUCOSE METER 205 mg/dL 70-110 H TESTED AT [facility] 6720 ([facility]) (test code = [facility] 1538) [address] CT, CHEST, WITHOUT [id number] 18:24:00FINAL REPORT TECHNIQUE: CT scan of the [...] Verified Date/Time: 01/10/2019 18:24:57 Reading Location: [facility] C013Y CT Body Reading Room POCT-GLUCOSE [id number] 17:31:00 Test Item Value Reference Range Interpretation Comments POC-GLUCOSE METER 183 mg/dL 70-110 H TESTED AT [place] [address] ([facility]) (test code = [place] 1538) [address] CT, BRAIN, WITHOUT [id number] 14:47:00FINAL REPORT CT, BRAIN, WITHOUT CONTRAST INDICATION: [...] Signed: Lubna Lr Verified Date/Time: 01/10/2019 14:47:25 -[id number] 11:36:00 Test Item Value Reference Range Interpretation [...] within 95-100% range.RAD, CHEST, 1 VIEW, NON [id number] 08:17:00Reason for exam:->chest painShould this be performed [...] Montes Verified Date/Time: 01/10/2019 08:17:19 Reading Location: [facility] B1 C013X [facility] Consult Reading Room TROPONIN [id number] 07:02:00 Test Item Value Reference Range Interpretation [...] H (test code = 700) BASIC METABOLIC [id number] 06:51:00 Test Item Value Reference Range Interpretation [...] PATIEN TS. CBC W/PLT COUNT & AUTO [id number] 06:27:00 Test Item Value Reference Range Interpretation [...] PERCENT (BEAKER) (test code = 2801) TROPONIN [id number] 23:52:00 Test Item Value Reference Range Interpretation [...] acidosis, acute neurological disease, and persistent tachyarrhythmia.POCT-GLUCOSE [id number] 22:03:00 Test Item Value Reference Range Interpretation Comments POC-GLUCOSE METER 315 mg/dL 70-110 H TESTED AT [place] [address] ([facility]) (test code = [facility] 1538) [address] POCT-GLUCOSE [id number] 20:02:00 Test Item Value Reference Range Interpretation Comments POC-GLUCOSE METER 250 mg/dL 70-110 H TESTED AT [place] [address] ([facility]) (test code = [facility] 1538) [address] TROPONIN [id number] 19:05:00 Test Item Value Reference Range Interpretation Comments TROPONIN I ([facility]) (test code = 0.04 ng/mL 0.00-0.03 H [...] acidosis, acute neurological disease, and persistent tachyarrhythmia.POCT-GLUCOSE [id number] 17:40:00 Test Item Value Reference Range Interpretation Comments POC-GLUCOSE METER 246 mg/dL 70-110 H TESTED AT [place] [address] ([facility]) (test code = [facility] 1538) [address] POCT-GLUCOSE [id number] 08:11:00 Test Item Value Reference Range Interpretation Comments POC-GLUCOSE METER 243 mg/dL 70-110 H TESTED AT [place] [address] ([facility]) (test code = [facility] 1538) [address] BASIC METABOLIC [id number] 05:04:00 Test Item Value Reference Range Interpretation Comments SODIUM ([facility]) 138 meq/L 136-145 (test code = 381) [...] GFR I S NOT APPLICABLE FOR DIALYSIS ROSE LOPEZ. [id number] 04:56:00 Test Item Value Reference Range Interpretation Comments PARTIAL THROMBOPLASTIN TIME 35.0 seconds 22.5-36.0 (BEAKER) (test code = 760) CBC W/PLT COUNT & AUTO [id number] 04:48:00 Test Item Value Reference Range Interpretation [...] PERCENT (BEAKER) (test code = 2801) POCT-GLUCOSE [id number] 22:08:00 Test Item Value Reference Range Interpretation Comments POC-GLUCOSE METER 364 mg/dL 70-110 H Notified R Christy MD/TESTED (BEAKER) (test code = AT [place] [address]) [facility] 7703 0 POCT-GLUCOSE [id number] 17:05:00 Test Item Value Reference Range Interpretation Comments POC-GLUCOSE METER 389 mg/dL 70-110 H Notified R Christy MD/TESTED (BEAKER) (test code = AT [place] [address]) [facility] 7703 0 BASIC METABOLIC [id number] 16:28:00 Test Item Value Reference Range Interpretation [...] S NOT APPLICABLE FOR DIALYSIS PATIEN TS. PT/[id number] 16:26:00 Test Item Value Reference Range Interpretation [...] INR is2.5-3.5 for patients wiht mechanical heart valves.[id number] 16:26:00 Test Item Value Reference Range Interpretation Comments PARTIAL THROMBOPLASTIN TIME 32.0 seconds 22.5-36.0 (BEAKER) (test code = 760) POCT-GLUCOSE [id number] 12:06:00 Test Item Value Reference Range Interpretation Comments POC-GLUCOSE METER 321 mg/dL 70-110 H Notified Rohith Harrison MD/TESTED (CHASITY) (test code = AT [facility] [address]) [place] [address] 0 POCT-GLUCOSE [id number] 08:29:00 Test Item Value Reference Range Interpretation Comments POC-GLUCOSE METER 263 mg/dL 70-110 H TESTED AT [facility] 6720 (BEAKER) (test code = [place] 1538) [address] [id number] 04:54:00 Test Item Value Reference Range Interpretation Comments PARTIAL THROMBOPLASTIN TIME 31.0 seconds 22.5-36.0 (BEAKER) (test code = 760) CBC W/PLT COUNT & AUTO [id number] 04:43:00 Test Item Value Reference Range Interpretation [...] (test code = 414) MONOCYTES ABSOLUTE COUNT ([facility]) 0.53 K/ L 0.30-0.82 (test code = 415) EOSINOPHILS ABSOLUTE COUNT 0.20 K/ L 0.04-0.54 ([facility]) (test code = 416) BASOPHILS ABSOLUTE COUNT ([facility]) 0.03 K/ L 0.01-0.08 (test code = 417) IMMATURE GRANULOCYTES-RELATIVE 1 % 0-1 PERCENT ([facility]) (test code = 2801) POCT-GLUCOSE [id number] 22:11:00 Test Item Value Reference Range Interpretation Comments POC-GLUCOSE METER 319 mg/dL 70-110 H Notified R Christy BOSS/TESTED ([facility]) (test code = AT [place] [address]) [facility] 7703 0 [id number] 20:11:00 Test Item Value Reference Range Interpretation Comments PARTIAL THROMBOPLASTIN TIME 33.3 seconds 22.5-36.0 ([facility]) (test code = 760) POCT-GLUCOSE [id number] 18:49:00 Test Item Value Reference Range Interpretation Comments POC-GLUCOSE METER 309 mg/dL 70-110 H TESTED AT [place] [address] ([facility]) (test code = [place] [facility] 1538) [address] POCT-GLUCOSE [id number] 14:48:00 Test Item Value Reference Range Interpretation Comments POC-GLUCOSE METER 161 mg/dL 70-110 H TESTED AT [place] [address] ([facility]) (test code = [place] [facility] 1538) [address] POCT-GLUCOSE [id number] 14:46:00 Test Item Value Reference Range Interpretation Comments POC-GLUCOSE METER 159 mg/dL 70-110 H TESTED AT [place] [address] ([facility]) (test code = JOHN PAULWA Rohith [facility] 1538) [address] TROPONIN [id number] 13:58:00 Test Item Value Reference Range Interpretation Comments TROPONIN I ([facility]) (test code = 397) < ng/mL 0.00-0.03 [...] failure, acidosis, acute neurological disease, and persistent tachyarrhythmia.[id number] 12:25:00 Test Item Value Reference Range Interpretation Comments PARTIAL THROMBOPLASTIN TIME 30.3 seconds 22.5-36.0 ([facility]) (test code = 760) POCT-GLUCOSE [id number] 12:18:00 Test Item Value Reference Range Interpretation Comments POC-GLUCOSE METER 168 mg/dL 70-110 H TESTED AT [place] [address] ([facility]) (test code = [place] [facility] 1538) [address] POCT-GLUCOSE [id number] 11:06:00 Test Item Value Reference Range Interpretation Comments POC-GLUCOSE METER 180 mg/dL 70-110 H TESTED AT [place] [address] ([facility]) (test code = [place] [facility] 1538) [address] POCT-GLUCOSE [id number] 10:21:00 Test Item Value Reference Range Interpretation Comments POC-GLUCOSE METER 195 mg/dL 70-110 H TESTED AT [place] [address] ([facility]) (test code = [place] 1538) [address] POCT-GLUCOSE [id number] 10:21:00 Test Item Value Reference Range Interpretation Comments POC-GLUCOSE METER 180 mg/dL 70-110 H TESTED AT [place] [address] ([facility]) (test code = [place] 1538) [address] POCT-GLUCOSE [id number] 08:06:00 Test Item Value Reference Range Interpretation Comments POC-GLUCOSE METER 218 mg/dL 70-110 H TESTED AT [place] [address] ([facility]) (test code = [employer] [facility] 1538) [address] TROPONIN [id number] 07:00:00 Test Item Value Reference Range Interpretation Comments TROPONIN I ([facility]) (test code = 0.01 ng/mL 0.00-0.03 397) [...] afterwardsOnce on admission and Daily AM afterwardsPOCT-GLUCOSE [id number] 06:58:00 Test Item Value Reference Range Interpretation Comments POC-GLUCOSE METER 248 mg/dL 70-110 H TESTED AT [facility] 6720 (BEAKER) (test code = [place] 1538) [address] [id number] 06:54:00 Test Item Value Reference Range Interpretation Comments PHOSPHORUS (BEAKER) (test code = 2.5 mg/dL 2.3-4.7 604) Once on admission and Daily AM afterwardsOnce on admission and Daily AM afterwardsOnce on admission and Daily AM [id number] 06:54:00 Test Item Value Reference Range Interpretation [...] Daily AM afterwardsCBC W/PLT COUNT & AUTO [id number] 06:42:00 Test Item Value Reference Range Interpretation [...] (test code = 416) BASOPHILS ABSOLUTE COUNT (JENY) 0.04 K/ L 0.01-0.08 (test code = 417) IMMATURE GRANULOCYTES-RELATIVE 1 % 0-1 PERCENT (CHASITY) (test code = 2801) [id number] 06:28:00 Test Item Value Reference Range Interpretation Comments PARTIAL THROMBOPLASTIN TIME 30.6 seconds 22.5-36.0 (CHASITY) (test code = 760) POCT-GLUCOSE [id number] 06:01:00 Test Item Value Reference Range Interpretation Comments POC-GLUCOSE METER 266 mg/dL 70-110 H TESTED AT [place] [address] ([facility]) (test code = [place] [id number]) [id number] POCT-GLUCOSE [id number] 04:57:00 Test Item Value Reference Range Interpretation Comments POC-GLUCOSE METER 271 mg/dL 70-110 H TESTED AT [place] [address] ([facility]) (test code = [place] 969288) [id number] POCT-GLUCOSE [id number] 04:05:00 Test Item Value Reference Range Interpretation Comments POC-GLUCOSE METER 308 mg/dL 70-110 H Notified Rohith Harrison MD/TESTED ([facility]) (test code = AT [address] 1538) [facility] [address] POCT-GLUCOSE [id number] 02:57:00 Test Item Value Reference Range Interpretation Comments POC-GLUCOSE METER 343 mg/dL 70-110 H Notified Rohith Harrison MD/TESTED ([facility]) (test code = AT [place] 792138) [facility] 7703 0 RAD, CHEST, 1 VIEW, NON [id number] 02:27:00Reason for exam:->mediastinal wideningShould this be performed [...] Emmanuelle Kline Verified Date/Time: 01/07/2019 02:27:45 POCT-GLUCOSE [id number] 01:57:00 Test Item Value Reference Range Interpretation Comments POC-GLUCOSE METER 369 mg/dL 70-110 H TESTED AT [place] [address] ([facility]) (test code = [place] [facility] 1538) [id number] POCT-GLUCOSE [id number] 01:06:00 Test Item Value Reference Range Interpretation Comments POC-GLUCOSE METER 395 mg/dL 70-110 H Notified Rohith Harrison MD/TESTED ([facility]) (test code = AT [facility] [address] [place] [address] 1538) [facility] 7703 0 TROPONIN [id number] 00:36:00 Test Item Value Reference Range Interpretation Comments TROPONIN I ([facility]) (test code = 0.01 ng/mL 0.00-0.03 397) [...] Reference Range Interpretation Comments B-TYPE NATRIURETIC PEPTIDE ([facility]) 151 pg/mL 0-100 H (test code = 700) [id number] 00:19:00 Test Item Value Reference Range Interpretation Comments PARTIAL THROMBOPLASTIN TIME 28.2 seconds 22.5-36.0 ([facility]) (test code = 760) Prior to initiating heparinPOCT-GLUCOSE [id number] 00:16:00 Test Item Value Reference Range Interpretation Comments POC-GLUCOSE METER 413 mg/dL 70-110 HH TESTED AT [place] [id number] ([facility]) (test code = [place] [facility] 1538) [id number] POCT-GLUCOSE [id number] 23:10:00 Test Item Value Reference Range Interpretation Comments POC-GLUCOSE METER 452 mg/dL 70-110 HH Notified Rohith Harrison MD/TESTED ([facility]) (test code = AT [facility] [address] 1538) [place] [address] 0 POCT-GLUCOSE [id number] 22:06:00 Test Item Value Reference Range Interpretation Comments POC-GLUCOSE METER 383 mg/dL 70-110 H TESTED AT [facility] 6720 ([facility]) (test code = [place] [facility] 1538) [address] CT, BRAIN, WITHOUT [id number] 21:38:00FINAL REPORT CT Head without contrast CLINICAL [...] Signed: Emmanuelle Kline Verified Date/Time: 01/06/2019 21:38:52 BASI METABOLIC [id number] 21:12:00 Test Item Value Reference Range Interpretation [...] NOT APPLICABLE FOR DIALYSIS PATIEN TS. HEMOGLOBIN [id number] 20:17:00 Test Item Value Reference Range Interpretation Comments HEMOGLOBIN A1C ([facility]) (test code = 11.9 % 4.3-6.1 H 368) TROPONIN [id number] 19:52:00 Test Item Value Reference Range Interpretation [...] acute neurological disease, and persistent tachyarrhythmia.HEPATIC FUNCTION [id number] 19:46:00 Test Item Value Reference Range Interpretation [...] (test code = 347) hemolyzed Specimen moderately [id number] 19:32:00 Test Item Value Reference Range Interpretation Comments PARTIAL THROMBOPLASTIN TIME 28.1 seconds 22.5-36.0 ([facility]) (test code = 760) PROTHROMBIN [id number] 19:31:00 Test Item Value Reference Range Interpretation [...] mechanical heart valves.CBC W/PLT COUNT & AUTO [id number] 19:25:00 Test Item Value Reference Range Interpretation [...] PERCENT ([facility]AK[facility]) (test code = 2801) POCT-GLUCOSE [id number] 17:51:00 Test Item Value Reference Range Interpretation Comments POC-GLUCOSE METER 342 mg/dL 70-110 H Notified R Christy BOSS/TESTED ([facility]) (test code = AT [facility] 0214 [facility] 0183) [place] 7[address] 0
[2020-04-22] MEDS ORDERED: HYDROCODONE/APAP 7.5/325 MG TAB ONE (02:00)
--- NOTE | 2020-04-22 03:57 | EDPHYS ---
Physician Documentation [facility] Name: Wero Kwong Age: 54 yrs Sex: Male : 1965 Arrival Date: 04/22/2020 Time: 00:21 Bed 14 Private MD: MILTON MENDEZ ED Physician Wallace Garcia HPI: 04/22 02:30 This 54 yrs old Male presents to ER via Wheelchair with complaints of Skin mh7 Sore(s) - bottom of right foot. 02:30 The patient presents with pain, that is acute. The complaints affect the right foot, mh7 plantar aspect. Context: The problem was sustained at home, resulted from an unknown cause, Mechanism of Injury: Unknown the patient can fully bear weight, the patient is able to ambulate, with mild difficulty, Has sore plantar foot for 3 weeks. Onset: The symptoms/episode began/occurred last night. Modifying factors: The symptoms are alleviated by nothing, the symptoms are aggravated by weight bearing. Associated signs and symptoms: Pertinent negatives: calf tenderness, fever, nausea, numbness, rash, swelling, tingling, vomiting, warmth, weakness. Severity of symptoms: At their worst the symptoms were moderate, last night, in the emergency department the symptoms are unchanged. Historical: - Allergies: 00:58 Codeine; lp1 00:58 Morphine; lp1 - Home Meds: 00:58 calcium acetate 667 mg Oral cap 1 caps twice a day [Active]; citalopram 20 mg tab 1 tab lp1 once daily [Active]; clonazepam 0.5 mg Oral tab as needed [Active]; gabapentin 300 mg Oral cap 3 caps twice a day [Active]; isosobide 60 mg daily [Active]; levetiracetam 500 mg Oral tab 1 tab 2 times per day [Active]; lisinopril 10 mg Oral tab 1 tab once daily [Active]; methocarbamol 500 mg Oral tab as needed [Active]; metoclopramide HCl 10 mg Oral tab [Active]; Nephro-Steven 0.8 mg Oral tab daily [Active]; Novolog 100 unit/mL Sub-Q soln three times a day [Active]; ondansetron HCl 8 mg Oral tab 1 tab every 8 hours [Active]; pantoprazole 40 mg Oral TbEC 1 tab once daily [Active]; sevelamer carbonate 800 mg Oral tab 1 tab twice a day [Active]; simvastatin 40 mg Oral tab 1 tab once daily [Active]; Toujeo SoloStar 300 unit/mL (1.5 mL) subcutaneous inpn 65 unit daily [Active]; tramadol 50 mg Oral tab 1 tab as needed [Active]; - PMHx: 00:58 CAD; CHF; Cirrhosis; CVA; Diabetes - IDDM; dialysis (); High Cholesterol; lp1 Hypertension; kidney failure; Myocardial infarction; neuropathy; Seizures; - PSHx: 00:58 None; lp1 - Immunization history:: Adult Immunizations up to date. - Social history:: Smoking status: Patient reports the use of cigarette tobacco products, denies chronic smoking, but will smoke occasionally. ROS: 02:30 Constitutional: Negative for fever, chills, and weight loss, Eyes: Negative for injury, mh7 pain, redness, and discharge, ENT: Negative for injury, pain, and discharge, Neck: Negative for injury, pain, and swelling, Cardiovascular: Negative for chest pain, palpitations, and edema, Respiratory: Negative for shortness of breath, cough, wheezing, and pleuritic chest pain, Abdomen/GI: Negative for abdominal pain, nausea, vomiting, diarrhea, and constipation, Back: Negative for injury and pain, : Negative for injury, bleeding, discharge, and swelling, Skin: Negative for injury, rash, and discoloration, Neuro: Negative for headache, weakness, numbness, tingling, and seizure, Psych: Negative for depression, anxiety, suicide ideation, homicidal ideation, and hallucinations, Allergy/Immunology: Negative for hives, rash, and allergies, Endocrine: Negative for neck swelling, polydipsia, polyuria, polyphagia, and marked weight changes, Hematologic/Lymphatic: Negative for swollen nodes, abnormal bleeding, and unusual bruising. Exam: 02:30 Head/Face: Normocephalic, atraumatic. Eyes: Pupils equal round and reactive to light, mh7 extra-ocular motions intact. Lids and lashes normal. Conjunctiva and sclera are non-icteric and not injected. Cornea within normal limits. Periorbital areas with no swelling, redness, or edema. Neck: Trachea midline, no thyromegaly or masses palpated, and no cervical lymphadenopathy. Supple, full range of motion without nuchal rigidity, or vertebral point tenderness. No Meningismus. Chest/axilla: Normal chest wall appearance and motion. Nontender with no deformity. No lesions are appreciated. Cardiovascular: Regular rate and rhythm with a normal S1 and S2. No gallops, murmurs, or rubs. Normal PMI, no JVD. No pulse deficits. Respiratory: Lungs have equal breath sounds bilaterally, clear to auscultation and percussion. No rales, rhonchi or wheezes noted. No increased work of breathing, no retractions or nasal flaring. Abdomen/GI: Soft, non-tender, with normal bowel sounds. No distension or tympany. No guarding or rebound. No evidence of tenderness throughout. Back: No spinal tenderness. No costovertebral tenderness. Full range of motion. 02:30 Skin: Warm, dry with normal turgor. Normal color with no rashes, no lesions, and no evidence of cellulitis. Neuro: Awake and alert, GCS 15, oriented to person, place, time, and situation. Cranial nerves II-XII grossly intact. Motor strength 5/5 in all extremities. Sensory grossly intact. Cerebellar exam normal. Normal gait. Psych: Awake, alert, with orientation to person, place and time. Behavior, mood, and affect are within normal limits. 02:30 Constitutional: The patient appears in no acute distress, alert, awake, uncomfortable. 02:30 Musculoskeletal/extremity: Extremities: noted in the right foot, plantar aspect: pain, tenderness, scabbed wound, ulceration, ROM: intact in all extremities, Circulation is intact in all extremities. Pulses: are normal with no appreciated deficits, Perfusion: the patient is normally perfused throughout, Perfusion: the extremity is normally perfused throughout, Sensation intact. Compartment Syndrome exam of affected extremity: is normal. no numbness, no tingling, no sensation deficit, no palor, no weak pulses, Joints: All joints appear normal with full range of motion. Weight bearing: able to fully bear weight, Tendon exam: specific tendon testing normal through active and passive range of motion Calves: are non-tender, have equal circumference. Vital Signs: 00:59 BP 113 / 73; Pulse 79; Resp 18; Temp 98(TE); Pulse Ox 97% on R/A; Weight 99.79 kg (R); lp1 Height 5 ft. 6 in. (167.64 cm); Pain 9/10; 02:30 BP 132 / 87; Pulse 76; Resp 18; Pulse Ox 96% on R/A; wh 03:30 BP 122 / 81; Pulse 75; Resp 18; Pulse Ox 97% on R/A; wh 00:59 Body Mass Index 35.51 (99.79 kg, 167.64 cm) lp1 MDM: 03:54 Differential diagnosis: fracture, sprain, foreign body, penetrating trauma, arthritis, 7 cellulitis. Data reviewed: vital signs, nurses notes, old medical records, radiologic studies, plain films. Data interpreted: Pulse oximetry: on room air is 97 %. Interpretation: normal. Counseling: I had a detailed discussion with the patient and/or guardian regarding: the historical points, exam findings, and any diagnostic results supporting the discharge/admit diagnosis, lab results, radiology results, the need for outpatient follow up, to return to the emergency department if symptoms worsen or persist or if there are any questions or concerns that arise at home. Response to treatment: the patient's symptoms have markedly improved after treatment. 03:56 Patient medically screened. [facility] 04/22 02:22 Order name: Glucose, Ancillary Testing [facility] 04/22 01:41 Order name: Foot Right 3 View XRAY [facility] 04/22 01:41 Order name: Accucheck Blood Glucose; Complete Time: 02:11 [facility] Administered Medications: 01:48 Drug: [place] (7.5 mg-325 mg) 1 tabs {Note: RASS 0.} Route: PO; lp1 03:58 Follow up: Response: No adverse reaction; Pain is decreased; RASS: Alert and Calm (0) Disposition: 04/22/20 03:56 Discharged to Home. Impression: Right Foot Plantar Ulcer. - Condition is Stable. - Discharge Instructions: Foot Pain. - Medication Reconciliation Form, Thank You Letter, Antibiotic Education, Prescription Opioid Use form. - Follow up: Private Physician; When: 1 - 2 days; Reason: Worsening of condition, Recheck today's complaints, Continuance of care, Re-evaluation by your physician. Follow up: MILTON MENDEZ; When: 1 - 2 days; Reason: Worsening of condition, Recheck today's complaints. - Problem is an ongoing problem. - Symptoms have improved. Signatures: Dispatcher [employer] EDShellie Miller RN RN lp1 Lori, Jr Wallace Garcia MD MD mh7 Corrections: (The following items were deleted from the chart) 04:07 03:56 04/22/2020 03:56 Discharged to Home. Impression: Right Foot Plantar Ulcer. wh Condition is Stable. Forms are Medication Reconciliation Form, Thank You Letter, Antibiotic Education, Prescription Opioid Use. Follow up: Private Physician; When: 1 - 2 days; Reason: Worsening of condition, Recheck today's complaints, Continuance of care, Re-evaluation by your physician. Follow up: MILTON MENDEZ; When: 1 - 2 days; Reason: Worsening of condition, Recheck today's complaints. Problem is an ongoing problem. Symptoms have improved. mh7
--- NOTE | 2020-04-22 03:57 | ER ---
Nurse's Notes [facility] Name: Wero Kwong Age: 54 yrs Sex: Male : 1965 Arrival Date: 04/22/2020 Time: 00:21 Bed 14 Private MD: MILTON MENDEZ Diagnosis: Right Foot Plantar Ulcer Presentation: 04/22 00:54 Chief complaint: Patient states: R foot wound that began 04/03/20; Being treated by PCP, lp1 x-rays done 3 days ago outpatient here; reports [facility]; States pain to foot that began tonight. Coronavirus screen: Client denies travel out of the [place] in the last 14 days. At this time, the client does not indicate any symptoms associated with coronavirus-19. Ebola Screen: No symptoms or risks identified at this time. Risk Assessment: Do you want to hurt yourself or someone else? Patient reports no desire to harm self or others. Onset of symptoms was April 21, 2020. 00:54 Method Of Arrival: Wheelchair lp1 00:54 Acuity: [place] 3 lp1 00:59 Initial Sepsis Screen: Does the patient meet any 2 criteria? No. Patient's initial lp1 sepsis screen is negative. Does the patient have a suspected source of infection? No. Patient's initial sepsis screen is negative. Historical: - Allergies: 00:58 Codeine; lp1 00:58 Morphine; lp1 - Home Meds: 00:58 calcium acetate 667 mg Oral cap 1 caps twice a day [Active]; citalopram 20 mg tab 1 tab lp1 once daily [Active]; clonazepam 0.5 mg Oral tab as needed [Active]; gabapentin 300 mg Oral cap 3 caps twice a day [Active]; isosobide 60 mg daily [Active]; levetiracetam 500 mg Oral tab 1 tab 2 times per day [Active]; lisinopril 10 mg Oral tab 1 tab once daily [Active]; methocarbamol 500 mg Oral tab as needed [Active]; metoclopramide HCl 10 mg Oral tab [Active]; Nephro-Steven 0.8 mg Oral tab daily [Active]; Novolog 100 unit/mL Sub-Q soln three times a day [Active]; ondansetron HCl 8 mg Oral tab 1 tab every 8 hours [Active]; pantoprazole 40 mg Oral TbEC 1 tab once daily [Active]; sevelamer carbonate 800 mg Oral tab 1 tab twice a day [Active]; simvastatin 40 mg Oral tab 1 tab once daily [Active]; Toujeo SoloStar 300 unit/mL (1.5 mL) subcutaneous inpn 65 unit daily [Active]; tramadol 50 mg Oral tab 1 tab as needed [Active]; - PMHx: 00:58 CAD; CHF; Cirrhosis; CVA; Diabetes - IDDM; dialysis (); High Cholesterol; lp1 Hypertension; kidney failure; Myocardial infarction; neuropathy; Seizures; - PSHx: 00:58 None; lp1 - Immunization history:: Adult Immunizations up to date. - Social history:: Smoking status: Patient reports the use of cigarette tobacco products, denies chronic smoking, but will smoke occasionally. Screenin:59 Abuse screen: Denies threats or abuse. Denies injuries from another. Nutritional lp1 screening: No deficits noted. Tuberculosis screening: No symptoms or risk factors identified. 01:14 Fall Risk Total Morales Fall Scale indicates High Risk Score (45 or more points). Fall lp1 prevention measures have been instituted. Side Rails Up X 2 Family Present and informed to notify staff if the need to leave the bedside As available patient and family educated on Fall Prevention Program and Strategies. Assessment: 01:12 General: Appears uncomfortable, Behavior is appropriate for age. Pain: Complains of lp1 pain in arch of right foot Pain currently is 9 out of 10 on a pain scale. Quality of pain is described as sharp, stabbing. Neuro: Level of Consciousness is awake, alert, obeys commands, Oriented to person, place, time, situation. Cardiovascular: Patient's skin is warm and dry. Respiratory: Respiratory effort is even, unlabored. GI: No signs and/or symptoms were reported involving the gastrointestinal system. : No signs and/or symptoms were reported regarding the genitourinary system. EENT: No signs and/or symptoms were reported regarding the EENT system. Derm: Wound noted arch of right foot Wound is black colored bedding of wound, slight odorous smell from site; no drainage noted. Musculoskeletal: No deficits noted. 02:20 Reassessment: Patient appears in no apparent distress at this time. Patient and/or wh family updated on plan of care and expected duration. Pain level reassessed. Patient is alert, oriented x 3, equal unlabored respirations, skin warm/dry/pink. 03:30 Reassessment: Patient appears in no apparent distress at this time. Patient and/or wh family updated on plan of care and expected duration. Pain level reassessed. Patient is alert, oriented x 3, equal unlabored respirations, skin warm/dry/pink. Vital Signs: 00:59 BP 113 / 73; Pulse 79; Resp 18; Temp 98(TE); Pulse Ox 97% on R/A; Weight 99.79 kg (R); lp1 Height 5 ft. 6 in. (167.64 cm); Pain 9/10; 02:30 BP 132 / 87; Pulse 76; Resp 18; Pulse Ox 96% on R/A; wh 03:30 BP 122 / 81; Pulse 75; Resp 18; Pulse Ox 97% on R/A; wh 00:59 Body Mass Index 35.51 (99.79 kg, 167.64 cm) lp1 ED Course: 00:21 Patient arrived in ED. am2 00:21 MILTON MENDEZ is Private Physician. am2 00:56 Triage completed. lp1 00:56 Arm band placed on. lp1 01:12 Shellie Escobedo, HAYLEE is Primary Nurse. lp1 01:14 Patient has correct armband on for positive identification. lp1 01:21 Wallace Garcia MD is Attending Physician. 7 02:01 Foot Right 3 View XRAY In Process Unspecified. EDMS 03:55 MILTON MENDEZ is Referral Physician. [facility] 04:06 No provider procedures requiring assistance completed. Patient did not have IV access during this emergency room visit. Administered Medications: 01:48 Drug: [place] (7.5 mg-325 mg) 1 tabs {Note: RASS 0.} Route: PO; lp1 03:58 Follow up: Response: No adverse reaction; Pain is decreased; RASS: Alert and Calm (0) Outcome: 03:56 Discharge ordered by . 7 04:06 Discharged to home via wheelchair, with family. 04:06 Condition: stable 04:06 Discharge instructions given to patient, family, Instructed on discharge instructions, follow up and referral plans. wound care, POC Demonstrated understanding of instructions, follow-up care, POC 04:07 Patient left the ED. wh Signatures: Dispatcher [employer] EDShellie Miller RN RN 1 Marita Faye Winsy wh Holmes, Maurice, MD MD 7
[2020-04-22 04:32] VITALS: TEMP 98
[2020-04-22 04:35] VITALS: BP 122/81; O2SAT 97
--- NOTE | 2020-04-22 14:00 | RAD REPORT ---
EXAM DESCRIPTION: Foot Right 3 View CLINICAL HISTORY: 54 years Male PAIN TECHNIQUE: Three x-ray views of the right foot were performed on 04/22/2020 at 1:52 AM. COMPARISON: None FINDINGS: There is no evidence of fracture or dislocation. There is very mild degenerative spurring of the midfoot and hindfoot. No focal lytic or sclerotic bone lesions are seen. Bone mineralization is normal. There is slightly increased density of the skeletal structures. There is ulceration along the plantar aspect of the foot beneath the base of the metatarsals laterall y. Arterial vascular calcifications are present. IMPRESSION: 1. No evidence of acute osseous injury involving the right ankle. There are mild degener ative changes. 2. Soft tissue ulcer along the plantar aspect of the right foot beneath the base of the metatarsals l aterally. 3. Dense bones. 4. Arterial vascular calcifications. Electronically signed by: Linda Fields DO 04/22/2020 3:26 AM REPLENISHMENT ANALYST Due to temporary technical issues with the PACS/Fluency reporting system, reports are being signed by the in house radiologists without review as a courtesy to insure prompt reporting. The interpreting radiologist is fully responsible for the content of the report.
== END 2020-04-22 04:07 | disposition home or self-care (01) ==
LOC: ER 00:20
DX: L97.419 Non-pressure chronic ulcer of right heel and midfoot with unspecified severity (principal); F17.210 Nicotine dependence, cigarettes, uncomplicated; I10 Essential (primary) hypertension; N19 Unspecified kidney failure; Z99.2 Dependence on renal dialysis; E11.21 Type 2 diabetes mellitus with diabetic nephropathy; Z79.4 Long term (current) use of insulin; I50.9 Heart failure, unspecified; I25.10 Atherosclerotic heart disease of native coronary artery without angina pectoris; E78.00 Pure hypercholesterolemia, unspecified
CPT/HCPCS: 82947; 99283

== ENCOUNTER 2020-04-24 09:39 | Inpatient (IN) | payer OTHER ==
--- OUTSIDE RECORDS SUMMARY | 2020-04-24 10:31 | XMS REPORT | Clinical Summary ---
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] Essential hyper tension; Coronary artery disease involving [place] coronary artery of [place] heart with angina pectoris (HCC); Current mild ep isode of major depressive disorder without prior episode (HCC); 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 POC GLUCOSE Routine 07/05/2019 [...] Routine 07/03/2019 9:52 Results for this PM EXCHANGE ENGINEER procedure are i n the results section. POC GLUCOSE Routine 07/03/2019 4:16 Results for this PM [employer]CHANGE ENGINEER procedure are i n the results section. POC GLUCOSE Routine 07/03/2019 12:31 Results for this PM [employer]CHANGE ENGINEER procedure are i n the results section. POC GLUCOSE Routine 07/03/2019 11:50 Results for this AM EXCHANGE ENGINEER procedure are i n the results section. POC GLUCOSE Routine 07/03/2019 7:48 Results for this AM EXCHANGE ENGINEER procedure are i n the results section. ESTIMATED GFR Routine 07/03/2019 4:00 Results fo r this AM [employer]CHANGE ENGINEER procedure are i n the results section. VANCOMYCIN LEVEL, RANDOM Routine 07/03/2019 4:00 Results for this AM [employer]CHANGE ENGINEER procedure are i n the results section. PHOSPHORUS LEVEL Routine 07/03/2019 4:00 Results for this AM [employer]CHANGE ENGINEER procedure are i n the results section. MAGNESIUM LEVEL Routine 07/03/2019 4:00 Results for this AM EXCHANGE ENGINEER procedure are i n the results section. BASIC METABOLIC PANEL Routine 07/03/2019 4:00 Re sults for this AM EXCHANGE ENGINEER procedure are i n the results section. POC GLUCOSE Routine 07/02/2019 9:29 Results for this PM [employer]CHANGE ENGINEER procedure are i n the results section. POC GLUCOSE Routine 07/02/2019 6:48 Results for this PM EXCHANGE ENGINEER procedure are i n the results section. ESTIMATED GFR Routine 07/02/2019 4:05 Results fo r this PM [employer]CHANGE ENGINEER procedure are i n the results section. BASIC METABOLIC PANEL Routine 07/02/2019 4:05 Re sults for this PM EXCHANGE ENGINEER procedure are i n the results section. POC GLUCOSE Routine 07/02/2019 4:03 Results for this PM [employer]CHANGE ENGINEER procedure are i n the results section. VENIPUNC NEED PHYS Routine 07/02/2019 2:59 Resul ts for this SKILL,DX OR RX PM [employer]CHANGE ENGINEER procedure are in the results section. POC GLUCOSE Routine 07/02/2019 11:52 Results for this AM EXCHANGE ENGINEER procedure are i n the results section. POC GLUCOSE Routine 07/02/2019 8:44 Results for this AM EXCHANGE ENGINEER procedure are i n the results section. ESTIMATED GFR Routine 07/02/2019 4:00 Results fo r this AM EXCHANGE ENGINEER procedure are i n the results section. PHOSPHORUS LEVEL Routine 07/02/2019 4:00 Results for this AM EXCHANGE ENGINEER procedure are i n the results section. MAGNESIUM LEVEL Routine 07/02/2019 4:00 Results for this AM EXCHANGE ENGINEER procedure are i n the results section. BASIC METABOLIC PANEL Routine 07/02/2019 4:00 Re sults for this AM EXCHANGE ENGINEER procedure are i n the results section. VANCOMYCIN LEVEL, RANDOM Routine 07/02/2019 4:00 Results for this AM EXCHANGE ENGINEER procedure are i n the results section. POC GLUCOSE Routine 07/01/2019 9:39 Results for this PM [employer]CHANGE ENGINEER procedure are i n the results section. POC GLUCOSE Routine 07/01/2019 5:04 Results for this PM EXCHANGE ENGINEER procedure are i n the results section. VANCOMYCIN LEVEL, TROUGH Timed 07/01/2019 2:30 Results for this PM EXCHANGE ENGINEER procedure are i n the results section. POC GLUCOSE Routine 07/01/2019 12:20 Results for this PM EXCHANGE ENGINEER procedure are i n the results section. POC GLUCOSE Routine 07/01/2019 8:33 Results for this AM EXCHANGE ENGINEER procedure are i n the results section. POC GLUCOSE Routine 07/01/2019 4:13 Results for this AM EXCHANGE ENGINEER procedure are i n the results section. ESTIMATED GFR Routine 07/01/2019 4:00 Results fo r this AM EXCHANGE ENGINEER procedure are i n the results section. HEPATIC FUNCTION PANEL Routine 07/01/2019 4:00 R esults for this AM EXCHANGE ENGINEER procedure are i n the results section. PHOSPHORUS LEVEL Routine 07/01/2019 4:00 Results for this AM EXCHANGE ENGINEER procedure are i n the results section. MAGNESIUM LEVEL Routine 07/01/2019 4:00 Results for this AM EXCHANGE ENGINEER procedure are i n the results section. BASIC METABOLIC PANEL Routine 07/01/2019 4:00 Re sults for this AM EXCHANGE ENGINEER procedure are i n the results section. POC GLUCOSE Routine 06/30/2019 11:36 Results for this PM EXCHANGE ENGINEER procedure are i n the results section. POC GLUCOSE Routine 06/30/2019 9:09 Results for this PM EXCHANGE ENGINEER procedure are i n the results section. POC GLUCOSE Routine 06/30/2019 5:15 Results for this PM EXCHANGE ENGINEER procedure are i n the results section. POC GLUCOSE Routine 06/30/2019 2:40 Results for this PM EXCHANGE ENGINEER procedure are i n the results section. POC GLUCOSE Routine 06/30/2019 11:58 Results for this AM EXCHANGE ENGINEER procedure are i n the results section. SURGICAL PATHOLOGY Routine 06/30/2019 11:36 Resul ts for this REQUEST AM EXCHANGE ENGINEER procedure are i n the results section. POC GLUCOSE Routine 06/30/2019 10:00 Results for this AM EXCHANGE ENGINEER procedure are i n the results section. IR TRANSJUGULAR LIVER Routine 06/30/2019 9:39 Re sults for this BIOPSY AM EXCHANGE ENGINEER procedure are i n the results section. ESTIMATED GFR Routine 06/30/2019 4:03 Results fo r this AM EXCHANGE ENGINEER procedure are i n the results section. VANCOMYCIN LEVEL, RANDOM Routine 06/30/2019 4:03 Results for this AM EXCHANGE ENGINEER procedure are i n the results section. HEPATIC FUNCTION PANEL Routine 06/30/2019 4:03 R esults for this AM EXCHANGE ENGINEER procedure are i n the results section. PHOSPHORUS LEVEL Routine 06/30/2019 4:03 Results for this AM EXCHANGE ENGINEER procedure are i n the results section. MAGNESIUM LEVEL Routine 06/30/2019 4:03 Results for this AM EXCHANGE ENGINEER procedure are i n the results section. BASIC METABOLIC PANEL Routine 06/30/2019 4:03 Re sults for this AM EXCHANGE ENGINEER procedure are i n the results section. POC GLUCOSE Routine 06/29/2019 9:21 Results for this PM EXCHANGE ENGINEER procedure are i n the results section. POC GLUCOSE Routine 06/29/2019 4:06 Results for this PM EXCHANGE ENGINEER procedure are i n the results section. POC GLUCOSE Routine 06/29/2019 12:30 Results for this PM EXCHANGE ENGINEER procedure are i n the results section. POC GLUCOSE Routine 06/29/2019 8:25 Results for this AM EXCHANGE ENGINEER procedure are i n the results section. ESTIMATED GFR Routine 06/29/2019 4:54 Results fo r this AM EXCHANGE ENGINEER procedure are i n the results section. HEPATIC FUNCTION PANEL Routine 06/29/2019 4:54 R esults for this AM EXCHANGE ENGINEER procedure are i n the results section. VANCOMYCIN LEVEL, RANDOM Routine 06/29/2019 4:54 Results for this AM EXCHANGE ENGINEER procedure are i n the results section. HC COMPLETE BLD COUNT Routine 06/29/2019 4:54 Re sults for this W/AUTO DIFF AM EXCHANGE ENGINEER procedure are i n the results section. PHOSPHORUS LEVEL Routine 06/29/2019 4:54 Results for this AM EXCHANGE ENGINEER procedure are i n the results section. MAGNESIUM LEVEL Routine 06/29/2019 4:54 Results for this AM EXCHANGE ENGINEER procedure are i n the results section. BASIC METABOLIC PANEL Routine 06/29/2019 4:54 Re sults for this AM EXCHANGE ENGINEER procedure are i n the results section. POC GLUCOSE Routine 06/28/2019 8:33 Results for this PM EXCHANGE ENGINEER procedure are i n the results section. POC GLUCOSE Routine 06/28/2019 4:06 Results for this PM EXCHANGE ENGINEER procedure are i n the results section. POC GLUCOSE Routine 06/28/2019 12:29 Results for this PM EXCHANGE ENGINEER procedure are i n the results section. HEPATIC FUNCTION PANEL Routine 06/28/2019 12:23 R esults for this PM EXCHANGE ENGINEER procedure are i n the results section. ECG 12-LEAD STAT 06/28/2019 9:41 Results for this AM EXCHANGE ENGINEER procedure are i n the results section. POC GLUCOSE Routine 06/28/2019 9:14 Results for this AM EXCHANGE ENGINEER procedure are i n the results section. HEPATIC FUNCTION PANEL Timed 06/28/2019 9:13 R esults for this AM EXCHANGE ENGINEER procedure are i n the results section. TROPONIN Timed 06/28/2019 9:13 Results for this AM EXCHANGE ENGINEER procedure are i n the results section. ESTIMATED GFR Routine 06/28/2019 5:22 Results fo r this AM EXCHANGE ENGINEER procedure are i n the results section. VANCOMYCIN LEVEL, RANDOM Routine 06/28/2019 5:22 Results for this AM EXCHANGE ENGINEER procedure are i n the results section. PHOSPHORUS LEVEL Routine 06/28/2019 5:22 Results for this AM EXCHANGE ENGINEER procedure are i n the results section. MAGNESIUM LEVEL Routine 06/28/2019 5:22 Results for this AM EXCHANGE ENGINEER procedure are i n the results section. BASIC METABOLIC PANEL Routine 06/28/2019 5:22 Re sults for this AM EXCHANGE ENGINEER procedure are i n the results section. POC GLUCOSE Routine 06/27/2019 9:03 Results for this PM EXCHANGE ENGINEER procedure are i n the results section. POC GLUCOSE Routine 06/27/2019 5:04 Results for this PM EXCHANGE ENGINEER procedure are i n the results section. POC GLUCOSE Routine 06/27/2019 2:07 Results for this PM EXCHANGE ENGINEER procedure are i n the results section. POC GLUCOSE Routine 06/27/2019 11:57 Results for this AM EXCHANGE ENGINEER procedure are i n the results section. POC GLUCOSE Routine 06/27/2019 8:26 Results for this AM EXCHANGE ENGINEER procedure are i n the results section. ECG 12-LEAD Routine 06/27/2019 8:13 Results for this AM EXCHANGE ENGINEER procedure are i n the results section. ESTIMATED GFR Routine 06/27/2019 5:14 Results fo r this AM EXCHANGE ENGINEER procedure are i n the results section. VANCOMYCIN LEVEL, RANDOM Routine 06/27/2019 5:14 Results for this AM EXCHANGE ENGINEER procedure are i n the results section. PHOSPHORUS LEVEL Routine 06/27/2019 5:14 Results for this AM EXCHANGE ENGINEER procedure are i n the results section. MAGNESIUM LEVEL Routine 06/27/2019 5:14 Results for this AM EXCHANGE ENGINEER procedure are i n the results section. BASIC METABOLIC PANEL Routine 06/27/2019 5:14 Re sults for this AM EXCHANGE ENGINEER procedure are i n the results section. POC GLUCOSE Routine 06/26/2019 9:21 Results for this PM EXCHANGE ENGINEER procedure are i n the results section. POC GLUCOSE Routine 06/26/2019 7:41 Results for this PM EXCHANGE ENGINEER procedure are i n the results section. POC GLUCOSE Routine 06/26/2019 7:12 Results for this PM EXCHANGE ENGINEER procedure are i n the results section. ULTRAFILTRATION Routine 06/26/2019 1:39 PM EXCHANGE ENGINEER POC GLUCOSE Routine 06/26/2019 12:05 Results for this PM EXCHANGE ENGINEER procedure are i n the results section. POC GLUCOSE Routine 06/26/2019 8:54 Results for this AM EXCHANGE ENGINEER procedure are i n the results section. ESTIMATED GFR Routine 06/26/2019 6:25 Results fo r this AM EXCHANGE ENGINEER procedure are i n the results section. VANCOMYCIN LEVEL, RANDOM Routine 06/26/2019 6:25 Results for this AM EXCHANGE ENGINEER procedure are i n the results section. HC COMPLETE BLD COUNT Routine 06/26/2019 6:25 Re sults for this W/AUTO DIFF AM EXCHANGE ENGINEER procedure are i n the results section. PHOSPHORUS LEVEL Routine 06/26/2019 6:25 Results for this AM EXCHANGE ENGINEER procedure are i n the results section. MAGNESIUM LEVEL Routine 06/26/2019 6:25 Results for this AM EXCHANGE ENGINEER procedure are i n the results section. BASIC METABOLIC PANEL Routine 06/26/2019 6:25 Re sults for this AM EXCHANGE ENGINEER procedure are i n the results section. POC GLUCOSE Routine 06/25/2019 11:39 Results for this PM [employer]CHANGE ENGINEER procedure are i n the results section. HEMODIALYSIS Routine 06/25/2019 9:44 PM EXCHANGE ENGINEER POC GLUCOSE Routine 06/25/2019 9:14 Results for this PM EXCHANGE ENGINEER procedure are i n the results section. ESTIMATED GFR Routine 06/25/2019 6:45 Results fo r this PM EXCHANGE ENGINEER procedure are i n the results section. PHOSPHORUS LEVEL Routine 06/25/2019 6:45 Results for this PM EXCHANGE ENGINEER procedure are i n the results section. BASIC METABOLIC PANEL Routine 06/25/2019 6:45 Re sults for this PM EXCHANGE ENGINEER procedure are i n the results section. POC GLUCOSE Routine 06/25/2019 3:45 Results for this PM EXCHANGE ENGINEER procedure are i n the results section. POC GLUCOSE Routine 06/25/2019 11:30 Results for this AM EXCHANGE ENGINEER procedure are i n the results section. POC GLUCOSE Routine 06/25/2019 7:47 Results for this AM EXCHANGE ENGINEER procedure are i n the results section. POC GLUCOSE Routine 06/25/2019 12:05 Results for this AM EXCHANGE ENGINEER procedure are i n the results section. POC GLUCOSE Routine 06/24/2019 9:12 Results for this PM EXCHANGE ENGINEER procedure are i n the results section. POC GLUCOSE Routine 06/24/2019 4:22 Results for this PM EXCHANGE ENGINEER procedure are i n the results section. POC GLUCOSE Routine 06/24/2019 1:17 Results for this PM EXCHANGE ENGINEER procedure are i n the results section. HEMODIALYSIS Routine 06/24/2019 11:11 AM EXCHANGE ENGINEER POC GLUCOSE Routine 06/24/2019 7:35 Results for this AM EXCHANGE ENGINEER procedure are i n the results section. ESTIMATED GFR Routine 06/24/2019 4:00 Results fo r this AM EXCHANGE ENGINEER procedure are i n the results section. HC COMPLETE BLD COUNT Routine 06/24/2019 4:00 Re sults for this W/AUTO DIFF AM EXCHANGE ENGINEER procedure are i n the results section. HEPATIC FUNCTION PANEL Routine 06/24/2019 4:00 R esults for this AM EXCHANGE ENGINEER procedure are i n the results section. PHOSPHORUS LEVEL Routine 06/24/2019 4:00 Results for this AM EXCHANGE ENGINEER procedure are i n the results section. MAGNESIUM LEVEL Routine 06/24/2019 4:00 Results for this AM EXCHANGE ENGINEER procedure are i n the results section. BASIC METABOLIC PANEL Routine 06/24/2019 4:00 Re sults for this AM EXCHANGE ENGINEER procedure are i n the results section. POC GLUCOSE Routine 06/23/2019 6:00 Results for this PM EXCHANGE ENGINEER procedure are i n the results section. HEMODIALYSIS Routine 06/23/2019 12:21 PM EXCHANGE ENGINEER POC GLUCOSE Routine 06/23/2019 11:18 Results for this AM EXCHANGE ENGINEER procedure are i n the results section. IR TUNNELED DIALYSIS Routine 06/23/2019 10:03 Res ults for this CATHETER PLACEMENT AM EXCHANGE ENGINEER procedure are in the results section. POC GLUCOSE Routine 06/23/2019 9:54 Results for this AM EXCHANGE ENGINEER procedure are i n the results section. POC GLUCOSE Routine 06/23/2019 8:19 Results for this AM EXCHANGE ENGINEER procedure are i n the results section. ESTIMATED GFR Routine 06/23/2019 5:30 Results fo r this AM EXCHANGE ENGINEER procedure are i n the results section. HC COMPLETE BLD COUNT Routine 06/23/2019 5:30 Re sults for this W/AUTO DIFF AM EXCHANGE ENGINEER procedure are i n the results section. HEPATIC FUNCTION PANEL Routine 06/23/2019 5:30 R esults for this AM EXCHANGE ENGINEER procedure are i n the results section. PHOSPHORUS LEVEL Routine 06/23/2019 5:30 Results for this AM EXCHANGE ENGINEER procedure are i n the results section. MAGNESIUM LEVEL Routine 06/23/2019 5:30 Results for this AM EXCHANGE ENGINEER procedure are i n the results section. BASIC METABOLIC PANEL Routine 06/23/2019 5:30 Re sults for this AM EXCHANGE ENGINEER procedure are i n the results section. POC GLUCOSE Routine 06/22/2019 9:30 Results for this PM EXCHANGE ENGINEER procedure are i n the results section. POC GLUCOSE Routine 06/22/2019 12:28 Results for this PM EXCHANGE ENGINEER procedure are i n the results section. POC GLUCOSE Routine 06/22/2019 8:38 Results for this AM EXCHANGE ENGINEER procedure are i n the results section. ESTIMATED GFR Routine 06/22/2019 4:30 Results fo r this AM EXCHANGE ENGINEER procedure are i n the results section. HEPATIC FUNCTION PANEL Routine 06/22/2019 4:30 R esults for this AM EXCHANGE ENGINEER procedure are i n the results section. HC COMPLETE BLD COUNT Routine 06/22/2019 4:30 Re sults for this W/AUTO DIFF AM EXCHANGE ENGINEER procedure are i n the results section. PHOSPHORUS LEVEL Routine 06/22/2019 4:30 Results for this AM EXCHANGE ENGINEER procedure are i n the results section. MAGNESIUM LEVEL Routine 06/22/2019 4:30 Results for this AM EXCHANGE ENGINEER procedure are i n the results section. BASIC METABOLIC PANEL Routine 06/22/2019 4:30 Re sults for this AM EXCHANGE ENGINEER procedure are i n the results section. POC GLUCOSE Routine 06/22/2019 12:07 Results for this AM EXCHANGE ENGINEER procedure are i n the results section. POC GLUCOSE Routine 06/21/2019 9:03 Results for this PM EXCHANGE ENGINEER procedure are i n the results section. POC GLUCOSE Routine 06/21/2019 7:26 Results for this PM EXCHANGE ENGINEER procedure are i n the results section. POC GLUCOSE Routine 06/21/2019 4:33 Results for this PM EXCHANGE ENGINEER procedure are i n the results section. XR ABDOMEN 1 VW PORTABLE Routine 06/21/2019 4:08 Results for this PM [employer]CHANGE ENGINEER procedure are i n the results section. POC GLUCOSE Routine 06/21/2019 11:46 Results for this AM EXCHANGE ENGINEER procedure are i n the results section. POC GLUCOSE Routine 06/21/2019 8:15 Results for this AM EXCHANGE ENGINEER procedure are i n the results section. ESTIMATED GFR Routine 06/21/2019 4:00 Results fo r this AM EXCHANGE ENGINEER procedure are i n the results section. PHOSPHORUS LEVEL Routine 06/21/2019 4:00 Results for this AM EXCHANGE ENGINEER procedure are i n the results section. MAGNESIUM LEVEL Routine 06/21/2019 4:00 Results for this AM EXCHANGE ENGINEER procedure are i n the results section. BASIC METABOLIC PANEL Routine 06/21/2019 4:00 Re sults for this AM EXCHANGE ENGINEER procedure are i n the results section. POC GLUCOSE Routine 06/20/2019 9:33 Results for this PM EXCHANGE ENGINEER procedure are i n the results section. GRAM STAIN Routine 06/20/2019 5:32 Results for this PM EXCHANGE ENGINEER procedure are i n the results section. AEROBIC CULTURE Routine 06/20/2019 5:32 Results for this PM EXCHANGE ENGINEER procedure are i n the results section. POC GLUCOSE Routine 06/20/2019 3:51 Results for this PM EXCHANGE ENGINEER procedure are i n the results section. POC GLUCOSE Routine 06/20/2019 12:25 Results for this PM EXCHANGE ENGINEER procedure are i n the results section. POC GLUCOSE Routine 06/20/2019 7:34 Results for this AM EXCHANGE ENGINEER procedure are i n the results section. ESTIMATED GFR Routine 06/20/2019 4:00 Results fo r this AM EXCHANGE ENGINEER procedure are i n the results section. PHOSPHORUS LEVEL Routine 06/20/2019 4:00 Results for this AM EXCHANGE ENGINEER procedure are i n the results section. MAGNESIUM LEVEL Routine 06/20/2019 4:00 Results for this AM EXCHANGE ENGINEER procedure are i n the results section. BASIC METABOLIC PANEL Routine 06/20/2019 4:00 Re sults for this AM EXCHANGE ENGINEER procedure are i n the results section. HEPATIC FUNCTION PANEL Routine 06/20/2019 4:00 R esults for this AM EXCHANGE ENGINEER procedure are i n the results section. POC GLUCOSE Routine 06/19/2019 9:31 Results for this PM EXCHANGE ENGINEER procedure are i n the results section. PROTEIN, URINE, RANDOM Routine 06/19/2019 7:06 R esults for this PM EXCHANGE ENGINEER procedure are i n the results section. CREATININE LEVEL, URINE, Routine 06/19/2019 7:06 Results for this RANDOM PM EXCHANGE ENGINEER procedure are i n the results section. POC GLUCOSE Routine 06/19/2019 4:08 Results for this PM EXCHANGE ENGINEER procedure are i n the results section. POC GLUCOSE Routine 06/19/2019 12:34 Results for this PM EXCHANGE ENGINEER procedure are i n the results section. POC GLUCOSE Routine 06/19/2019 7:42 Results for this AM EXCHANGE ENGINEER procedure are i n the results section. ESTIMATED GFR Routine 06/19/2019 12:00 Results fo r this AM EXCHANGE ENGINEER procedure are i n the results section. PHOSPHORUS LEVEL Routine 06/19/2019 12:00 Results for this AM EXCHANGE ENGINEER procedure are i n the results section. MAGNESIUM LEVEL Routine 06/19/2019 12:00 Results for this AM EXCHANGE ENGINEER procedure are i n the results section. BASIC METABOLIC PANEL Routine 06/19/2019 12:00 Re sults for this AM EXCHANGE ENGINEER procedure are i n the results section. HEPATIC FUNCTION PANEL Routine 06/19/2019 12:00 R esults for this AM EXCHANGE ENGINEER procedure are i n the results section. ANTI MITOCHONDRIA SCREEN Routine 06/19/2019 12:00 Results for this AM EXCHANGE ENGINEER procedure are i n the results section. ANTI SMOOTH MUSCLE AB Routine 06/19/2019 12:00 Re sults for this SCREEN AM EXCHANGE ENGINEER procedure are i n the results section. POC GLUCOSE Routine 06/18/2019 9:10 Results for this PM EXCHANGE ENGINEER procedure are i n the results section. POC GLUCOSE Routine 06/18/2019 4:07 Results for this PM EXCHANGE ENGINEER procedure are i n the results section. POC GLUCOSE Routine 06/18/2019 11:14 Results for this AM EXCHANGE ENGINEER procedure are i n the results section. POC GLUCOSE Routine 06/18/2019 7:29 Results for this AM EXCHANGE ENGINEER procedure are i n the results section. URINE CULTURE Routine 06/18/2019 7:24 Results fo r this AM EXCHANGE ENGINEER procedure are i n the results section. URINALYSIS SCREEN AND Routine 06/18/2019 5:30 Re sults for this MICROSCOPY, WITH REFLEX AM EXCHANGE ENGINEER proc edure are in TO CULTURE the results section. AMMONIA LEVEL Routine 06/18/2019 5:00 Results fo r this AM EXCHANGE ENGINEER procedure are i n the results section. HEPATITIS B SURFACE AB, Routine 06/18/2019 5:00 Results for this QUANTITATIVE AM EXCHANGE ENGINEER procedure are i n the results section. HC COMPLETE BLD COUNT Routine 06/18/2019 5:00 Re sults for this W/AUTO DIFF AM EXCHANGE ENGINEER procedure are i n the results section. PROTHROMBIN TIME WITH Routine 06/18/2019 5:00 Re sults for this INR AM EXCHANGE ENGINEER procedure are i n the results section. ESTIMATED GFR Routine 06/18/2019 4:00 Results fo r this AM EXCHANGE ENGINEER procedure are i n the results section. GGT Routine 06/18/2019 4:00 Results for this AM EXCHANGE ENGINEER procedure are i n the results section. ANNE Routine 06/18/2019 4:00 Results for this AM EXCHANGE ENGINEER procedure are i n the results section. ALPHA-1 ANTITRYPSIN Routine 06/18/2019 4:00 Resu lts for this LEVEL AM EXCHANGE ENGINEER procedure are i n the results section. ALPHA FETOPROTEIN Routine 06/18/2019 4:00 Result s for this AM EXCHANGE ENGINEER procedure are i n the results section. CERULOPLASMIN LEVEL Routine 06/18/2019 4:00 Resu lts for this AM EXCHANGE ENGINEER procedure are i n the results section. HEPATITIS C ANTIBODY Routine 06/18/2019 4:00 Res ults for this AM EXCHANGE ENGINEER procedure are i n the results section. HEPATITIS B SURFACE Routine 06/18/2019 4:00 Resu lts for this ANTIGEN AM EXCHANGE ENGINEER procedure are i n the results section. HEPATITIS B SURFACE Routine 06/18/2019 4:00 Resu lts for this ANTIBODY AM EXCHANGE ENGINEER procedure are i n the results section. HEPATITIS B CORE Routine 06/18/2019 4:00 Results for this ANTIBODY TOTAL AM EXCHANGE ENGINEER procedure are in the results section. HEPATITIS B CORE Routine 06/18/2019 4:00 Results for this ANTIBODY IGM AM EXCHANGE ENGINEER procedure are i n the results section. HEPATITIS A ANTIBODY IGM Routine 06/18/2019 4:00 Results for this AM EXCHANGE ENGINEER procedure are i n the results section. PHOSPHORUS LEVEL Routine 06/18/2019 4:00 Results for this AM EXCHANGE ENGINEER procedure are i n the results section. MAGNESIUM LEVEL Routine 06/18/2019 4:00 Results for this AM EXCHANGE ENGINEER procedure are i n the results section. BASIC METABOLIC PANEL Routine 06/18/2019 4:00 Re sults for this AM EXCHANGE ENGINEER procedure are i n the results section. HEPATIC FUNCTION PANEL Routine 06/18/2019 4:00 R esults for this AM EXCHANGE ENGINEER procedure are i n the results section. POC GLUCOSE Routine 06/17/2019 9:17 Results for this PM EXCHANGE ENGINEER procedure are i n the results section. POC GLUCOSE Routine 06/17/2019 5:07 Results for this PM EXCHANGE ENGINEER procedure are i n the results section. US ABDOMEN COMPLETE Routine 06/17/2019 4:48 Resu lts for this PM EXCHANGE ENGINEER procedure are i n the results section. US ABDOMINAL DOPPLER Routine 06/17/2019 4:48 Res ults for this PM EXCHANGE ENGINEER procedure are i n the results section. US RENAL Routine 06/17/2019 2:26 Results for this PM EXCHANGE ENGINEER procedure are i n the results section. POC GLUCOSE Routine 06/17/2019 11:38 Results for this AM EXCHANGE ENGINEER procedure are i n the results section. POC GLUCOSE Routine 06/17/2019 8:22 Results for this AM EXCHANGE ENGINEER procedure are i n the results section. TISSUE TRANSGLUTAMINASE Routine 06/17/2019 4:53 Results for this AB, IGA AM EXCHANGE ENGINEER procedure are i n the results section. ESTIMATED GFR Routine 06/17/2019 4:53 Results fo r this AM EXCHANGE ENGINEER procedure are i n the results section. PHOSPHORUS LEVEL Routine 06/17/2019 4:53 Results for this AM EXCHANGE ENGINEER procedure are i n the results section. MAGNESIUM LEVEL Routine 06/17/2019 4:53 Results for this AM EXCHANGE ENGINEER procedure are i n the results section. BASIC METABOLIC PANEL Routine 06/17/2019 4:53 Re sults for this AM EXCHANGE ENGINEER procedure are i n the results section. CELIAC DISEASE REFLEXIVE Routine 06/17/2019 4:53 Results for this CASCADE AM EXCHANGE ENGINEER procedure are i n the results section. POC GLUCOSE Routine 06/17/2019 12:44 Results for this AM EXCHANGE ENGINEER procedure are i n the results section. POC GLUCOSE Routine 06/16/2019 9:02 Results for this PM EXCHANGE ENGINEER procedure are i n the results section. POC GLUCOSE Routine 06/16/2019 4:27 Results for this PM EXCHANGE ENGINEER procedure are i n the results section. POC GLUCOSE Routine 06/16/2019 12:07 Results for this PM EXCHANGE ENGINEER procedure are i n the results section. ECG 12-LEAD Routine 06/16/2019 11:18 Results for this AM EXCHANGE ENGINEER procedure are i n the results section. POC GLUCOSE Routine 06/16/2019 7:25 Results for this AM EXCHANGE ENGINEER procedure are i n the results section. ESTIMATED GFR Routine 06/16/2019 4:00 Results fo r this AM EXCHANGE ENGINEER procedure are i n the results section. PHOSPHORUS LEVEL Routine 06/16/2019 4:00 Results for this AM EXCHANGE ENGINEER procedure are i n the results section. MAGNESIUM LEVEL Routine 06/16/2019 4:00 Results for this AM EXCHANGE ENGINEER procedure are i n the results section. BASIC METABOLIC PANEL Routine 06/16/2019 4:00 Re sults for this AM EXCHANGE ENGINEER procedure are i n the results section. POC GLUCOSE Routine 06/15/2019 8:49 Results for this PM EXCHANGE ENGINEER procedure are i n the results section. POC GLUCOSE Routine 06/15/2019 4:31 Results for this PM EXCHANGE ENGINEER procedure are i n the results section. FECAL CALPROTECTIN Routine 06/15/2019 4:30 Resul ts for this PM EXCHANGE ENGINEER procedure are i n the results section. SPIROMETRY, DIFFUSION, Routine 06/15/2019 2:29 Tachycardia R esults for this LUNG VOLUMES PM EXCHANGE ENGINEER procedure are i n the results section. POC GLUCOSE Routine 06/15/2019 12:27 Results for this PM EXCHANGE ENGINEER procedure are i n the results section. US CAROTID DUPLEX Routine 06/15/2019 11:31 Result s for this BILATERAL AM EXCHANGE ENGINEER procedure are i n the results section. POC GLUCOSE Routine 06/15/2019 7:24 Results for this AM EXCHANGE ENGINEER procedure are i n the results section. ESTIMATED GFR Routine 06/15/2019 3:38 Results fo r this AM EXCHANGE ENGINEER procedure are i n the results section. PHOSPHORUS LEVEL Routine 06/15/2019 3:38 Results for this AM EXCHANGE ENGINEER procedure are i n the results section. MAGNESIUM LEVEL Routine 06/15/2019 3:38 Results for this AM EXCHANGE ENGINEER procedure are i n the results section. BASIC METABOLIC PANEL Routine 06/15/2019 3:38 Re sults for this AM EXCHANGE ENGINEER procedure are i n the results section. HC COMPLETE BLD COUNT Routine 06/15/2019 3:38 Re sults for this W/AUTO DIFF AM EXCHANGE ENGINEER procedure are i n the results section. POC GLUCOSE Routine 06/14/2019 9:02 Results for this PM EXCHANGE ENGINEER procedure are i n the results section. CT HEAD WO CONTRAST STAT 06/14/2019 8:31 Resu lts for this PM EXCHANGE ENGINEER procedure are i n the results section. POC GLUCOSE Routine 06/14/2019 4:31 Results for this PM EXCHANGE ENGINEER procedure are i n the results section. POC GLUCOSE Routine 06/14/2019 3:36 Results for this PM EXCHANGE ENGINEER procedure are i n the results section. POC GLUCOSE Routine 06/14/2019 12:06 Results for this PM EXCHANGE ENGINEER procedure are i n the results section. POC GLUCOSE Routine 06/14/2019 8:38 Results for this AM EXCHANGE ENGINEER procedure are i n the results section. GASTROINTESTINAL PANEL Routine 06/14/2019 5:48 R esults for this AM EXCHANGE ENGINEER procedure are i n the results section. T4, FREE Routine 06/14/2019 5:14 Results for this AM EXCHANGE ENGINEER procedure are i n the results section. THYROID STIMULATING Routine 06/14/2019 5:14 Resu lts for this HORMONE AM EXCHANGE ENGINEER procedure are i n the results section. LIPID PANEL Routine 06/14/2019 5:14 Results for this AM EXCHANGE ENGINEER procedure are i n the results section. HEMOGLOBIN A1C Routine 06/14/2019 5:14 Results f or this AM EXCHANGE ENGINEER procedure are i n the results section. MANUAL DIFFERENTIAL Routine 06/14/2019 4:59 Resu lts for this AM EXCHANGE ENGINEER procedure are i n the results section. ESTIMATED GFR Routine 06/14/2019 4:59 Results fo r this AM EXCHANGE ENGINEER procedure are i n the results section. BASIC METABOLIC PANEL Routine 06/14/2019 4:59 Re sults for this AM EXCHANGE ENGINEER procedure are i n the results section. CBC WITH PLATELET AND Routine 06/14/2019 4:59 Re sults for this DIFFERENTIAL AM EXCHANGE ENGINEER procedure are i n the results section. POC GLUCOSE Routine 06/13/2019 9:19 Results for this PM EXCHANGE ENGINEER procedure are i n the results section. POC GLUCOSE Routine 06/13/2019 4:35 Results for this PM EXCHANGE ENGINEER procedure are i n the results section. POC GLUCOSE Routine 06/13/2019 11:50 Results for this AM EXCHANGE ENGINEER procedure are i n the results section. POC GLUCOSE Routine 06/13/2019 8:04 Results for this AM EXCHANGE ENGINEER procedure are i n the results section. POC GLUCOSE Routine 06/13/2019 8:02 Results for this AM EXCHANGE ENGINEER procedure are i n the results section. HC COMPLETE BLD COUNT Routine 06/13/2019 5:30 Re sults for this W/AUTO DIFF AM EXCHANGE ENGINEER procedure are i n the results section. ESTIMATED GFR Routine 06/13/2019 4:00 Results fo r this AM EXCHANGE ENGINEER procedure are i n the results section. BASIC METABOLIC PANEL Routine 06/13/2019 4:00 Re sults for this AM EXCHANGE ENGINEER procedure are i n the results section. TROPONIN Timed 06/13/2019 1:36 Results for this AM EXCHANGE ENGINEER procedure are i n the results section. TROPONIN Timed 06/12/2019 10:55 Results for this PM EXCHANGE ENGINEER procedure are i n the results section. GASTROINTESTINAL PANEL Routine 06/12/2019 10:05 R esults for this PM EXCHANGE ENGINEER procedure are i n the results section. INFLUENZA ANTIGEN Routine 06/12/2019 9:15 Result s for this PM EXCHANGE ENGINEER procedure are i n the results section. XR CHEST 1 VW PORTABLE STAT 06/12/2019 8:55 R esults for this PM EXCHANGE ENGINEER procedure are i n the results section. ECG ED PRELIMINARY Routine 06/12/2019 7:50 Resul ts for this INTERPRETATION PM EXCHANGE ENGINEER procedure are in the results section. URINALYSIS SCREEN AND STAT 06/12/2019 7:49 Re sults for this MICROSCOPY, WITH REFLEX PM EXCHANGE ENGINEER proc edure are in TO CULTURE the results section. ESTIMATED GFR STAT 06/12/2019 7:49 Results fo r this PM EXCHANGE ENGINEER procedure are i n the results section. PROTHROMBIN TIME WITH STAT 06/12/2019 7:49 Re sults for this INR PM EXCHANGE ENGINEER procedure are i n the results section. PARTIAL THROMBOPLASTIN STAT 06/12/2019 7:49 R esults for this TIME (PTT) PM EXCHANGE ENGINEER procedure are i n the results section. B NATRIURETIC PEPTIDE STAT 06/12/2019 7:49 Re sults for this PM EXCHANGE ENGINEER procedure are i n the results section. TROPONIN STAT 06/12/2019 7:49 Results for this PM EXCHANGE ENGINEER procedure are i n the results section. COMPREHENSIVE METABOLIC STAT 06/12/2019 7:49 Results for this PANEL PM EXCHANGE ENGINEER procedure are i n the results section. HC COMPLETE BLD COUNT STAT 06/12/2019 7:49 Re sults for this W/AUTO DIFF PM EXCHANGE ENGINEER procedure are i n the results section. URINE CULTURE STAT 06/12/2019 7:49 Results fo r this PM EXCHANGE ENGINEER procedure are i n the results section. ECG 12-LEAD STAT 06/12/2019 7:42 Results for this PM EXCHANGE ENGINEER procedure are i n the results section. after 04/24/[address] Chest Wo Contrast (12/28/2019 9:29 [...] repr esent some subcutaneous bruising for cellulitis. [id number] Procedure Note Hm Interface, Radiology Results Incoming [...] may represent some subcutaneous bruising for cellulitis. [id number] Performing Organization Address City/State/ZIP Code Phon e Number [facility] [address] [place] [address] CT Head Wo Contrast (12/28/2019 9:28 PM [...] appropria te moderation of exposure. Automated dose change management administrator nology is applied to adjust radiation exposure while achievi ng a diagnostic quality image. COMPARISON: 06/14/2019. FINDINGS: The wagner-white matter differentiation is preserved and without evidence of acute territorial infarction. 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 Minimal scattered subcortical and [...] ensure appropriate moderation of exposure. Automated dose change management administrator nology is applied to adjust radiation exposure while achieving a diagnostic quality image. COMPARISON: 06/14/2019. FINDINGS: The wagner-white matter differentiation is preserved and without evidence of acute territorial infarction. 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 Minimal scattered subcortical and [...] acute intracranial abnormality. [id number] Performing Organization Address [facility] Phon e Number [facility] [address] [place] [address] XR Chest 1 Vw Portable (12/28/2019 8:55 PM CDT)Only the most recent of2 results within the time period is included. Specimen Narrative Performed At EXAMINATION: XR CHEST 1 VW PORTABLE [facility] CLINICAL HISTORY: sob COMPARISON: 06/12/2019. IMPRESSION: Right central venous catheter terminates over the right atrium. Low lung volumes. Vascular crowding and/or congestion. No focal consolidation. No pleural effusion or pneumothorax. The cardiomediastinal silhouette is norm al. No acute osseous abnormalities. [facility]-[id number] Procedure Note Hm Interface, Radiology Results Incoming - 12/28/2019 8:59 PM CDT EXAMINATION: XR CHEST 1 VW PORTABLE CLINICAL HISTORY: sob COMPARISON: 06/12/2019. IMPRESSION: Right central venous catheter terminates over the right atrium. Low lung volumes. Vascular crowding and/ or congestion. No focal consolidation. No pleural effusion or pneumothorax. The cardiomediastinal silhouette is norm al. No acute osseous abnormalities. [facility]-[id number] Performing Organization Address [facility] Phon e Number [facility] [address] [place] [address] ECG ED Preliminary Interpretation - Not an Order (12/28/2019 8:54 PM CDT)Only the most recent of2 resultswithin the time period is included. Narrative Performed At Kelvin Palomino MD 12/30/2019 2:41 AM ECG ED Preliminary Interpretation - Not an Order Performed by: Kelvin Palomino MD Authorized by: Kelvin Palomino MD ECG reviewed by ED Physician in the abse nce of a manager integration: yes Interpretation: Interpretation: abnormal Rate: ECG rate: 81 ECG rate assessment: normal Rhythm: Rhythm: sinus rhythm Conduction: Conduction: abnormal Abnormal conduction: complete RBBB Estimated GFR (12/28/2019 7:16 PM CDT)Only the most recent of37 resultswithin the time period is included. Estimated GFR 17 (A) mL/min/1.73 [facility] Comment: HOSPITAL Catergory Units Interpretation G1 >=90 [...] Organization Address City/State/ZIP Code Phon e Number [facility] DEPARTMENT OF PATHOLOGY AND [address] [place], [place] [address] GENOMIC MEDICINE [facility] [address] [place] [address] Troponin (12/28/2019 7:16 PM CDT)Only the most [...] 0.020 ng/mL Specimen Blood Performing Organization Address City/[facility] Code Phon e Number [facility] DEPARTMENT OF PATHOLOGY AND [address] [place], [place] [address] GENOMIC MEDICINE [facility] [address] [place] [address] CBC with platelet and differential (12/28/2019 7:16 PM CDT)Only the most recent of16 resultswithin the time period is included. WBC 5.65 4.50 - 11.00 [facility] k/uL [facility] RBC 3.75 (L) 4.40 - 6.00 [facility] m/uL [facility] HGB 12.7 (L) 14.0 - 18.0 [facility] g/dL [facility] HCT 36.6 (L) 41.0 - 51.0 % [facility] MCV 97.6 82.0 - 100.0 [facility] MCH 33.9 27.0 - 34.0 pg [facility] MCHC 34.7 31.0 - 37.0 [facility] g/dL [facility] RDW - SD 50.0 37.0 - 55.0 fL [facility] MPV 12.9 8.8 - 13.2 fL [facility] Platelet count 152 150 - 400 k/uL [facility] Nucleated RBC 0.00 /100 WBC [facility] Neutrophils 65.7 39.0 - 69.0 % [facility] Lymphocytes 24.6 (L) 25.0 - 45.0 % [facility] Monocytes 5.3 0.0 - 10.0 % [facility] Eosinophils 3.0 0.0 - 5.0 % [facility] Basophils 0.7 0.0 - 1.0 % [facility] Immature granulocytes 0.7Comment: 0.0 - 1.0 % [facility] "Immature HOSPITAL granulocytes" (promyelocytes , myelocytes, metamyelocytes ) Specimen Blood Performing Organization Address City/[facility] Phon e Number [facility] DEPARTMENT OF PATHOLOGY AND [address] [place], [place] [address] [facility] [address] [place] [address] B natriuretic peptide (12/28/2019 7:16 PM CDT)Only the most recent of2 results within the time period is included. Pathologist Sig nature BNP 318 (H) 0 - 100 pg/mL [facility] Specimen Blood Performing Organization Address City/[facility] Phon e Number [facility] DEPARTMENT OF PATHOLOGY AND [address] [place] [phone] [facility] [address] [place] [address] Comprehensive metabolic panel (12/28/2019 7:16 PM CDT)Only the most recent of2 resultswithin the time period is included. Sodium 139 135 - 148 [facility] mEq/L [facility] Potassium 5.3 (H) 3.5 - 5.0 [facility] mEq/L [facility] Chloride 97 (L) 98 - 112 [facility] mEq/L [facility] CO2 27 24 - 31 mEq/L [facility] Anion gap 15@ANIO 7 - 15 mEq/L [facility] BUN 27 (H) 6 - 20 mg/dL [facility] Creatinine 3.84 (H) 0.70 - 1.20 [facility] mg/dL [facility] Glucose 252 (H) 65 - 99 mg/dL [facility] Calcium 8.8 8.3 - 10.2 [facility] mg/dL [facility] Protein 6.9 6.3 - 8.3 [facility] Comment: g/dL HOSPITAL - 4.6-7.0 g/dL 1 week 4.4-7.6 g/dL 7 months-1year 5.1-7.3 g/dL 1-2 years 5.6-7.5 g/dL >3 years 6.0-8.0 g/dL 18-150 6.3-8.3 g/dL Albumin 2.7 (L) 3.5 - 5.0 [facility] g/dL [facility] A/G ratio 0.6 (L) 0.7 - 3.8 [facility] Alkaline phosphatase 175 (H) 40 - 129 U/L [facility] AST 35 10 - 50 U/L [facility] ALT 29 5 - 50 U/L [facility] Total bilirubin 0.3 0.0 - 1.2 [facility] mg/dL HOSPITAL Specimen Blood Performing Organization Address City/[facility]/ZIP [facility] Phon e Number [facility] DEPARTMENT OF PATHOLOGY AND [address] [place] [address] [phone] [address] ECG 12 lead (12/28/2019 6:32 PM CDT)Only the most recent of5 resultswithin the time period is included. Pathologist Sig nature Ventricular rate 81 [facility] Atrial rate 81 [facility] ID interval 134 [facility] QRSD interval 136 [facility] QT interval 440 [facility] QTC interval 511 [facility] P axis 1 37 [facility] QRS axis 1 114 [facility] T wave axis 5 [facility] EKG impression Normal sinus rhythm-Right bu ndle branch block-Left posterior fascicular block-^^^ Bifascicular block ^^^-Abnormal ECG-In automated comparison with ECG of 28-JUN-2019 09:41,-Left posterior fascicular blo [facility] MUSE ck is now seen- Specimen Narrative Performed At This result has an attachment that is no t available. Performing Organization Address [facility] Phon e Number [facility] MUSE [address] [place] [address] POC glucose (07/16/2019 12:29 PM CDT)Only the most recent of156 resultswithin the time period is included. Pathologist [facility] POC glucose 253 (H) 65 - 99 mg/dL [facility] Comment: HOSPITAL Draftsperson Name: Ney Lao Device ID: [id number] Chartable: H Notified RN Specimen Blood Performing Organization Address City/[facility]/ZIP Code Phon e Number [facility] DEPARTMENT OF PATHOLOGY AND [address] [place] [address] [phone] [address] Phosphorus level (07/16/2019 4:00 AM CDT)Only the most recent of31 results within the time period is included. Pathologist Sig nature Phosphorus 4.3 2.4 - 4.5 mg/dL [facility] L Specimen Blood Performing Organization Address City/[facility] Phon e Number [facility] DEPARTMENT OF PATHOLOGY AND [address] [place] [address] [phone] [address] Basic metabolic panel (07/16/2019 4:00 AM CDT)Only the most recent of35 results within the time period is included. Pathologist Sig nature Sodium 142 135 - 148 mEq/L [facility] Potassium 4.3 3.5 - 5.0 mEq/L [facility] Chloride 105 98 - 112 mEq/L [facility] CO2 27 24 - 31 mEq/L [facility] Anion gap 10@ANIO 7 - 15 mEq/L [facility] BUN 46 (H) 6 - 20 mg/dL [facility] Creatinine 4.61 (H) 0.70 - 1.20 mg/dL [facility] Glucose 189 (H) 65 - 99 mg/dL [facility] Calcium 8.7 8.3 - 10.2 mg/dL [facility] Specimen Blood Performing Organization Address [facility] Phon e Number [facility] DEPARTMENT OF PATHOLOGY AND [address] [place] [address] [phone] [address] Magnesium level (07/14/2019 5:10 AM CDT)Only the most recent of29 resultswithin the time period is included. Pathologist Sig nature Magnesium 1.9 1.6 - 2.6 mg/dL [facility] L Specimen Blood Performing Organization Address City/[facility] Phon e Number [facility] DEPARTMENT OF PATHOLOGY AND [address] [place] [address] [phone] [address] Total iron binding capacity (07/10/2019 1:40 PM CDT) Pathologist Sig nature Iron level 72 59 - 158 ug/dL [facility] Iron binding capacity 298 200 - 400 ug/dL [facility] % Saturation 24.2 20.0 - 40.0 % [facility] Specimen Blood Performing Organization Address City/[facility] Phon e Number [facility] DEPARTMENT OF PATHOLOGY AND [address] [place] [phone] [place] [id number] [place] [address] Ferritin level (07/10/2019 1:40 PM CDT) Pathologist Sig nature Ferritin level 214 30 - 400 ng/mL [facility] Specimen Blood Performing Organization Address City/[facility]/ZIP Code Phon e Number [facility] DEPARTMENT OF PATHOLOGY AND [address] [place] [phone] [facility] [address] [place] [address] [place] Modified Barium Swallow (07/09/2019 1:51 PM [...] to Speech Pathology report for further details. [facility]-[id number] Dictated and approved by resident services manager/fellow: Marin Escamilla M.D. I, Adriana Morales MD, personally reviewed the images and resident's/fellow's findings and agree with the final report. Procedure Note [facility], Radiology Results Incoming - 07/09/2019 3:05 PM [...] to Speech Pathology report for further details. [facility]-[id number] Dictated and approved by radiology resid ent/fellow: Eugenia Escamilla M.D. I, Adriana Morales MD, personally review ed the images and resident's/fellow's findings and agree with the final report. Performing Organization Address City/State/ZIP Code Phon e Number [facility] [address] [place] [address] Hepatic function panel (07/08/2019 4:00 AM CDT)Only the most recent of15 resultswithin the time period is included. Albumin 2.4 (L) 3.5 - 5.0 [facility] g/dL [facility] Total bilirubin <0.2 0.0 - 1.2 [facility] mg/dL [facility] Bilirubin direct <0.2 0.0 - 0.3 [facility] mg/dL [facility] Alkaline phosphatase 133 (H) 40 - 129 U/L [facility] Protein 6.9 6.3 - 8.3 [facility] Comment: g/dL HOSPITAL - 4.6-7.0 g/dL 1 week 4.4-7.6 g/dL 7 months-1year 5.1-7.3 g/dL 1-2 years 5.6-7.5 g/dL >3 years 6.0-8.0 g/dL 18-150 6.3-8.3 g/dL ALT 20 5 - 50 U/L [facility] AST 20 10 - 50 U/L [facility] Specimen Plasma specimen Performing Organization Address [facility] Phon e Number [facility] DEPARTMENT OF PATHOLOGY AND [address] [place], [place] [phone] 0 GENOMIC MEDICINE [address] [address] Hypersensitivity pneumonitis II (07/07/2019 5:30 PM CDT) Pathologist [facility] Aspergillus flavus None Detected None-Detec [facility] Comment: tin LAB Testing includes antibodies directed at Aspergillus fl avus, Aspergillus fumigatus #2, Aspergillus fumigatus #3, Saccharomonospora viridis, and Thermoactinomyces dory dus. Aspergillus fumigatus None Detected None-Detec [facility] #2 tin LAB Aspergillus fumigatus None Detected None-Detec [facility] #3 tin LAB Saccharomonospora None Detected None-Detec [facility] viridis tin LAB Thermoactinomyces None Detected None-[facility]ec [facility] candidus Comment: tin LAB Performed by [place], [address] [place] [id number] [email or web address], Roberto Almaguer MD, Lab. Director Thermoactinomyces NOT PERFORMED WITH [facility] saccharii THIS PANEL LAB Specimen Serum Performing Organization Address [facility] Phon e Number [facility] [address] [place] [address] [facility] [address] [place] [address] Hypersensitivity pneumonitis I (07/07/2019 5:30 PM CDT) Aspergillus fumigatus None Detected None-Detec [facility] #1 tin LAB Aspergillus fumigatus None Detected None-Detec [facility] #6 tin LAB Aureobasidium pullulans None Detected None-Detec [facility] Comment: tin LAB Testing includes antibodies directed at Aureobasidium pullulans, Aspergillus fumigatus #1, Aspergillus fumigatus #6, Mi cropolyspora faeni, [place] Serum and Thermoactinomyces vulgaris #1. [place] serum None Detected None-Detec [facility] tin LAB Micropolyspora faeni None Detected None-Detec [facility] tin LAB Thermoactinomyces None Detected None-Detec [facility] vulgaris #1 Comment: tin LAB Performed by [place], [address] [place] [phone] [email or web address], Roberto Almaguer MD, Lab. Director Specimen Serum Performing Organization Address [facility] Phon e Number [facility] [address] [place] [address] [facility] [address] [place] [address] Immunoglobulin G (07/07/2019 4:11 PM CDT) Pathologist Sig nature IgG 1,005 700 - 1,600 mg/dL [facility] Specimen Plasma specimen Performing Organization Address [facility] Phon e Number [facility] DEPARTMENT OF PATHOLOGY AND [address] [place] [phone] GENOMIC MEDICINE [address] [address] SS-B antibody (07/07/2019 2:30 PM CDT) Sjogren's SS-B <0.2 0.0 - 0.9 [place] antibody [facility] SS-B antibody Negative [facility] inter Comment: [place] SS-B/La antibody is seen in patients with Sjogre n syndrome, but may also be HOSPITAL positive with systemic lupus erythematosus (SLE), and systemic sclerosis. Specimen Serum Performing Organization Address [facility]/ZIP Code Phon e Number [facility] DEPARTMENT OF PATHOLOGY AND [address] [place] [address] [phone] [address] SS-A antibody (07/07/2019 2:30 PM CDT) Sjogren's SS-A <0.2 0.0 - 0.[address] [facility] antibody [facility] SS-A antibody Negative [facility] interp Comment: [place] SS-A antibody is sensitive for Sjogren's syndrom e, but may also be positive HOSPITAL with systemic lupus erythematosus (SLE), and systemic sclerosis. Specimen Serum Performing Organization Address City/State/ZIP [facility] Phon e Number [facility] DEPARTMENT OF PATHOLOGY AND [address] [place] [address] [phone] [address] Scl-70 antibody (07/07/2019 2:30 PM CDT) Scleroderma SCL-70 <0.2 0.0 - 0.[address] [facility] Ab [facility] Scl-70 antibody Negative [facility] interp Comment: [place] Anti-Scl-70 (topoisomerase I) antibodies are found in patients with HOSPITAL systemic sclerosis (SSc or scleroderma), and have been reported to be predictive of diffuse cutaneous involvement. Anti-Scl- 70 antibodies may also be present in patients with systemic lupus erythe matosus (SLE). Specimen Serum Performing Organization Address City/State/ZIP Code Phon e Number [facility] DEPARTMENT OF PATHOLOGY AND [address] [place] [address] [phone] [address] Centromere antibody (07/07/2019 2:30 PM CDT) Centromere <0.2 0.0 - 0.9 [facility] Centromere Negative [facility] antibody interp Comment: HOSPITAL Anti-centromere antibodies are found in patients with systemic sclerosis (SSc or scleroderma), especially for those with limite d cutaneous or CREST syndrome. Anti-centromere antibodies may also be found in patients with other rheumatic or connective tissue diseases. Specimen Serum Performing Organization Address City/State/ZIP Code Phon e Number [facility] DEPARTMENT OF PATHOLOGY AND [address] [place] [address] [phone] [address] DNA Ab screen (07/07/2019 2:30 PM CDT) Pathologist Sig nature DNA Ab screen Not Detected Not-Detected [facility] Specimen Blood Performing Organization Address City/[facility]/ZIP Code Phon e Number [facility] DEPARTMENT OF PATHOLOGY AND [address] [place], [place] [address] [facility] [address] [place] [address] Anti-neutrophilic cytoplasmic Abs panel (07/07/2019 2:30 PM CDT) Pathologist Sig nature ANCA screen Negative Negative [facility] Specimen Blood Performing Organization Address City/[facility] Phon e Number [facility] DEPARTMENT OF PATHOLOGY AND [address] [place], [place] [address] [facility] [address] [place] [address] [address] Cardiac Overread (07/06/2019 6:20 PM CDT) [...] City/State/ZIP Code Phon e Number [facility] [address] [place] [address] Cv cta coronary arteries w contrast and ffr if needed (07/06/2019 1:32 PM CDT) Specimen Narrative Performed At This result has an attachment that is no t available. [facility] Nuclear Cardiology and Card iac CT [address] [address] CTA Coronary Arteries R eport Pat.Name: PAOLA KWONG Pat.ID: [id number] .Date: 07/06/2019 Refer.MD: MILTON ELLINGTON MD Exam Time: 1:09:00 PM Study Type:C TA Coronary Arteries Height: 67in Weight: 212lb BSA: 2.07 m2 Age: 6 1965,53Y Sex: MALE BP: 151/83 HR: 54 bpm Nuclear Tech:Samina Beyer, RT(R)(CT) Pat. Stat.:Inpatient Tape Vol: 33.2, CPT - 4: CCTA w Thoracic Aorta (NonCongenital) [id number] Nuclear Event ID:[id number] Order ID: [id number] Reason for Study:Pre-Op CABG, CAD History / Clinical:Coronary artery disease, Diabetes, Hyperlipidemia, Hypertension, S/P PCI 07/2007, Liver cirrhosis/Hepatiti s C Procedures: CT Prospective (phases) Race: C SUMMARY: Technique: IV contrast was administered and sequential 0.[address] cuts were obtained through the chest using the Siemens Gimahhot moy Force CT scanner. Image post-processing consisting of multiplan ar and 3D reconstructions were performed using the [employer] workstation. Interactive image viewing, volumetric dis play [...] the separate radiology report in [facility] for any additional non-cardiovascular findings. STUDY QUALITY The study quality is good. COMMENTS None. FINDINGS: Signed 07/06/2019 05:59 PM Sreedhar Walton MD Procedure Note Interface, Radiology Results In - 2019 5:59 PM CDT Nuclear Cardiology and Cardiac CT [address] [place] [address] CTA Coronary Arteri es Report Pat.Name: PAOLA KWONG Pat.I D: [id number] St.Date: 07/06/2019 Refer.MD: MILTON ELLINGTON MD Exam Time: 1:09:00 PM Study Type:CTA Coronary Arteries Height: 67in Weigh t: 212lb BSA: 2.07 m2 Age: 6 1965,53Y Sex: MALE BP: 151/83 HR: 54 bpm Nuclear Tech:Samina Beyer, RT(R)(CT) Pat. Stat.:Inpatient Tape Vol: 33.2, CPT - 4: CCTA w Thoracic Aorta (NonCo ngenital) [id number] Nuclear Event ID:[id number] Order ID: [id number] Reason for Study:Pre-Op CABG, CAD History / [...] and 3D reconstructions were performed using the [employer] workstation. Interactive image viewing, volumetric display and [...] the separate radiology r eport in [facility] for any additional non-cardiovascular findings. STUDY QUALITY The study quality is good. COMMENTS None. FINDINGS: Signed 07/06/2019 05:59 PM Sreedhar Walton MD Performing Organization Address [facility] [address] [place] [address] HIV Ag/Ab combination (07/06/2019 5:20 AM CDT) Pathologist [facility] HIV Ag/Ab combination Non-reactive Non-reactive [facility] Specimen Blood Performing Organization Address [facility] Phon e Number [facility] DEPARTMENT OF PATHOLOGY AND [address] [place] [address] [phone] [address] Prothrombin time with INR (07/06/2019 5:20 AM CDT)Only the most recent of3 resultswithin the time period is included. [facility] Prothrombin time 14.5 11.5 - 14.5 [facility] INR 1.1 [place] Comment: [facility] International Normalized Ratio (INR) is a [facility] HOSPITAL monitoring tool for patients who are stable on oral anticoagulant therapy. An INR of 2.0-3.0 is suggested for deep vein thrombosis/pulmonary embolism. Specimen Blood Performing Organization Address [facility] Phon e Number [facility] DEPARTMENT OF PATHOLOGY AND [address] [place] [address] [phone] [address] Rheumatoid factor (07/06/2019 5:20 AM CDT) Pathologist Sig nature Rheumatoid factor <10 0 - 13 IU/mL [facility] Specimen Plasma specimen Performing Organization Address [facility] Phon e Number [facility] DEPARTMENT OF PATHOLOGY AND [address] [place], [place] [address] [address] [address] C3 complement component (07/06/2019 5:20 AM CDT) Pathologist Sig nature C3 complement 133 90 - 180 mg/dL [facility] Specimen Plasma specimen Performing Organization Address [facility] Phon e Number [facility] DEPARTMENT OF PATHOLOGY AND [address] [place] [address] C4 complement component (07/06/2019 5:20 AM CDT) Pathologist Sig nature C4 complement 34 10 - 40 mg/dL [facility] Specimen Plasma specimen Performing Organization Address [facility] Phon e Number [facility] DEPARTMENT OF PATHOLOGY AND [address] [place] [address] Transthoracic Echocardiogram Complete, (w Contrast, Strain and 3D if needed) (07/05/2019 9:25 AM CDT) Specimen Narrative Performed At [facility] Echo cardiography Report [address] [place] [address] Pat.Name: PAOLA KWONG Pat.ID: [id number] .Date: 07/05/2019 Refer.MD: MILTON ELLINGTON MD Exam Time: 7:54:00 AM Study Type:R outine Echo Height: 67in Weight: 212lb BSA: 2.07 m2 Ag e: 1965,53Y Sex: MALE BP: 157/71 Sonogrphr: Audrey Bella RDCS, RVSPat. Stat.:Inpatien t Room: [facility] Study S tatus:Final Echo Event ID:[id number] Order ID: [id number] Reason for Study:Chest pain, suspected c ardiac etiology History / Clinical:Chest Pain, Diabetes, Hyperlipidemia, Hypertension, Cirrhosis, NE, Infectious Viral Hepatiti s Procedures: 2D Echo, [...] PA systolic pressure. MEASUREMENTS: 2D Parasternal Long Lower [place] Ao An 2 cm LVPWd 1.5 cm [...] - 2019 10:49 AM CDT Echocardiography Report [address] [place] [address] Pat.Name: PAOLA KWONG Pat.I D: [id number] St.Date: 07/05/2019 Refer.MD: MILTON ELLINGTON MD Exam Time: 7:54:00 AM Study Type:Routine Echo Height: 67in Weigh t: 212lb BSA: 2.07 m2 Age: 6 1965,53Y Sex: MALE BP: 157/71 Sonogrphr: Audrey Bella RDCS, RVSPat. Stat.:Inpatient Room: [facility] Study Status:Final Echo Event ID:[id number] Order ID: [id number] Reason for Study:Chest pain, suspected c ardiac etiology History / Clinical:Chest Pain, Diabetes, Hyperlipidemia, Hypertension, Cirrhosis, NE, Infectious Viral Hepatiti s Procedures: 2D Echo, [...] PA systolic pressure. MEASUREMENTS: 2D Parasternal Long [place] Ao An 2 cm LVPW d 1.5 [...] Jo Ann Kraus MD Performing Organization Address City/[facility]/ZIP Code Phon e Number [facility] [address] [place] [address] Vancomycin level, random (07/05/2019 5:14 AM CDT)Only the most recent of8 resultswithin the time period is included. Pathologist Sig nature Vancomycin, random 11.9 ug/mL [facility] ITAL Specimen Serum Performing Organization Address City/[facility]/ZIP Code Phon e Number [facility] DEPARTMENT OF PATHOLOGY AND [address] [place], [place] [address] GENOMIC MEDICINE [facility] [address] [place] [address] VENIPUNC NEED PHYS SKILL,DX OR RX (07/02/2019 2:59 PM EXCHANGE ENGINEER) Narrative Performed At Estela Padilla RN 07/02/2019 3:03 PM Midline Date/Time: 07/02/2019 2:59 PM Performed by: Kaykay Rain Authorized by: Milton [place] Sr., MD Consent: Consent obtained: Verbal Consent given by: Patient Risks discussed: arterial puncture, incorrect place ment, nerve damage, infection, bleeding, superficial thrombu s and deep vein thrombus Alternatives discussed: No treatment, delayed cathy atment and alternative treatment [facility] protocol: Procedure explained and questions ans wered [...] 4.5. 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 Location: Right basilic Device Type: Non-valved Catheter size: 4 Fr Catheter to vein ratio: 31% Line Characteristics: Catheter Brand: BioFlo Midline External Catheter Length (cm): 0 Internal Catheter Length (cm): 10 Total Catheter Length (cm): 10 Catheter Lot Number: [id number] Catheter Expiration Date: 12/26/2020 Procedure Details: Landmarks [...] complications Vancomycin level, trough (07/01/2019 2:30 PM EXCHANGE ENGINEER) Vancomycin, 23.0 (HH) 10.0 - 20.0 [facility] trough Comment: ug/mL HOSPITAL Therapeutic Ranges: Peak 30.0 - 40.0 ug/mL Trough 10.0 - 20.0 ug/mL Specimen Serum Performing Organization Address City/[facility] Phon e Number [facility] DEPARTMENT OF PATHOLOGY AND [address] [place] [phone] GENOMIC MEDICINE [address] [address] Surgical pathology request (06/30/2019 11:36 AM EXCHANGE ENGINEER) [facility] DEPARTMENT OF PATHOLOGY AND GENOMIC MEDICINE Surgical pathology See link below [facility] DEPARTMENT OF report for PDF Lab PATHOLOGY AND Report GENOMIC MEDICINE Result status This is Final [facility] DEPARTMENT OF Report for PATHOLOGY AND [id number] GENOMIC MEDICINE Specimen Performing Organization Address City/[facility] Phon e Number [facility] DEPARTMENT OF PATHOLOGY AND [address] [place] [phone] GENOMIC MEDICINE IR Transjugular Liver Biopsy (06/30/2019 9:39 AM EXCHANGE ENGINEER) Specimen Narrative Performed At Performing Radiologist EMERY Lauren MD Assistants None Anesthesia Type Moderate sedation was administered by the procedure nu rse and monitored by the procedure physician for a kyif-ts-pxtp sedation time of 20 minutes. Lidocaine 1% [...] atrial pressure measures were then obtained. A 5-Nigerien multipurpose catheter was advanced over the g uidewire and used to select the right hepatic vein. A CO2 right hepatic venogram was performed. Pressure measure ments were also obtained in both the free and wedge positions. The 9-F rench vascular sheath was then advanced into the right hepatic vein. The transjugular liver biopsy system was advanced through the 9-Nigerien vascular sheath, and multiple 18-gauge core liver biopsy specimens were obtained and submitted to pathology. Th e transjugular liver biopsy system and 9-Nigerien vascular sheath were then removed from the [...] hepatic: 11 mmHg Wedge hepatic: 15 mmHg [id number] Procedure Note Hm Interface, Radiology Results Incoming - 06/30/2019 4:50 PM EXCHANGE ENGINEER Performing Radiologist Vamshi Lauren MD Assistants None Anesthesia Type Moderate sedation was administered by e procedure nurse and monitored by the procedure physician for a ccyl-xq-chmw sedation time of 20 minutes. Lidocaine 1% [...] into the inferior vena cava. A long 9-Nigerien vascular sheath was then placed,and adva nced over the guidewire into the right atrium. Right atrial pressure measures were then obtained. A 5-Nigerien multipurpose catheter was advanced over the guidewire and used to select the right hepatic vein. A CO2 right hepatic venogram was performed. Pr essure measurements were also obtained in both the free and wedge positions. The 9-Nigerien vascular sheath was then advanced into the right hepatic vein. The transjugular liver biopsy system was advanced through the 9-Nigerien vascular sheath, and multiple 18-gauge core liver biopsy specimens were obtained and submitted to pathology. The transjugular liver biopsy system and 9-Nigerien vascular sheath were then removed from the [...] hepatic: 11 mmHg Wedge hepatic: 15 mmHg [id number] Performing Organization Address City/State/ZIP Code Phon e Number [facility] [address] [place] [address] IR Tunneled Dialysis Catheter Placement (06/23/2019 10:03 AM EXCHANGE ENGINEER) Specimen Narrative Performed At PERFORMING RADIOLOGIST: CONI Petersen MD ASSISTANTS: None. ANESTHESIA TYPE: Moderate sedation was administered by the procedure nu rse and monitored by the procedure physician for a total jffo-on-zgwv se dation time of 8 minutes. Lidocaine [...] PLAN: -Catheter is ready for immediate use. [id number] Procedure Note Hm Interface, Radiology Results Incoming - 06/24/2019 7:31 AM EXCHANGE ENGINEER PERFORMING RADIOLOGIST: Will Petersen MD ASSISTANTS: None. ANESTHESIA TYPE: Moderate sedation was administered by [facility] procedure nurse and monitored by the procedure physician for a total vfjf-xh-wihc sedation time of 8 minutes. Lidocaine 1% [...] PLAN: -Catheter is ready for immediate use. [id number] Performing Organization Address City/State/ZIP Code Phon e Number [facility] [address] [place] [address] XR Abdomen 1 Vw Portable (06/21/2019 4:08 PM EXCHANGE ENGINEER) Specimen Narrative Performed At EXAMINATION: XR [...] lung bases are clear. [id number] Procedure Note Interface, Radiology Results Incoming - 06/21/2019 6:05 PM EXCHANGE ENGINEER EXAMINATION: XR ABDOMEN 1 VW PORTABLE [...] are unremarkable. The lung bases are clear. [id number] Performing Organization Address City/State/ZIP Code [facility] e Number HM [facility] [address] [place] [address] Aerobic culture (06/20/2019 5:32 PM EXCHANGE ENGINEER) Aerobic culture Klebsiella pneumoniae GONZALEZ BRAUNIS T isolate [facility] The performance characteristics of this assay on this isolate were validated by the Microbiology Laboratory at [facility]. This source has not been approve [...] were validated by the Microbiology Laboratory at [facility]. This source has not been approve [...] were validated by the Microbiology Laboratory at [facility]. This source has not been approved by the U.S. Food and Drug Administration. The results are not intended to be used as the sole means for clinical win gnosis or patient management. The Microbiology Laboratory is authorized under the clinical Laboratory Improvement Amendments of 1988 (CLIA-88) to perform high complexit y testing. Aerobic culture Klebsiella pneumoniae GONZALEZ BRAUNIS T isolate [facility] The performance characteristics of this assay on this isolate were validated by the Microbiology Laboratory at [facility]. This source has not been approve [...] Aerobic culture Citrobacter freundii complex GONZALEZ [place] [facility] isolate [facility] The performance characteristics of this assay on this isolate were validated by the Microbiology Laboratory at [facility]. This source has not been approve [...] <=1 mcg/mL: Susceptible complex Citrobacter freundii Meropenem CRSY <=0.125 mcg /mL: Susceptible complex Citrobacter freundii [...] mcg/mL: S usceptible complex Performing Organization Address City/[facility] Phon e Number [facility] DEPARTMENT OF PATHOLOGY AND [address] [place] [address] Gram stain (06/20/2019 5:32 PM EXCHANGE ENGINEER) Gram stain isolate Rare WBC's [facility] Many Gram negative rods HOSPITAL Rare Gram positive cocci in pairs Comment: Specimen Information Specimen Source: Drainage Specimen Site: Not otherwise specified Specimen Drainage - Not otherwise specified Performing Organization Address City/[facility] Phon e Number [facility] DEPARTMENT OF PATHOLOGY AND [address] [place], [place] [address] [place] [address] Protein, urine, random (06/19/2019 7:06 PM EXCHANGE ENGINEER) Pathologist Sig nature Protein, urine random 584 mg/dL [facility] Specimen Urine Performing Organization Address City/[facility] Phon e Number [facility] DEPARTMENT OF PATHOLOGY AND [address] [place] [address] [phone] [address] Creatinine level, urine, random (06/19/2019 7:06 PM EXCHANGE ENGINEER) Pathologist Sig nature Creatinine, urine, 99 mg/dL [facility] Specimen Urine Performing Organization Address City/[facility] Phon e Number [facility] DEPARTMENT OF PATHOLOGY AND [address] [place] [address] [phone] [address] Anti smooth muscle Ab screen (06/19/2019 12:00 AM EXCHANGE ENGINEER) Pathologist Sig nature Anti smooth muscle Not Detected Not-Detected [facility] Ab [facility] Specimen Blood Performing Organization Address City/[facility] Phon e Number [facility] DEPARTMENT OF PATHOLOGY AND [address] [place] [address] [phone] [address] Anti mitochondria screen (06/19/2019 12:00 AM EXCHANGE ENGINEER) Anti mitochondria Not Detected Not-Detected [facility] Specimen Blood Performing Organization Address City/[facility] Phon e Number [facility] DEPARTMENT OF PATHOLOGY AND [address] [place] [phone] [address] [address] [address] Urine culture (06/18/2019 7:24 AM EXCHANGE ENGINEER)Only the most recent of2 resultswithin the time period is included. Urine culture No growth after 24 hours [facility] Comment: HOSPITAL Specimen Information Specimen Source: Urine Specimen Site: Clean catch Specimen Urine Performing Organization Address City/[facility] Phon e Number [facility] DEPARTMENT OF PATHOLOGY AND [address] [place] [address] [phone] [address] Urinalysis screen and microscopy, with reflex to culture (06/18/2019 5:30 AM EXCHANGE ENGINEER)Only the most recent of2 resultswithin the time period is included. Pathologist Sig nature Specimen site Clean catch [facility] Color, UA Yellow [facility] Appearance, UA Cloudy [facility] Specific gravity, 1.011 1.001 - 1.035 [facility] pH, UA 5.0 5.0 - 8.5 [facility] Protein, UA 3+ (A) Negative [facility] Glucose, UA 1+ (A) Negative [facility] Ketones, UA Negative Negative [facility] Bilirubin, UA Negative Negative [facility] Blood, UA Small (A) Negative [facility] Nitrite, UA Negative Negative [facility] Urobilinogen, UA <2.0 <2.0 [facility] Leukocyte esterase, Negative Negative [facility] WBC, UA 14 (H) 0 - 1 /HPF [facility] RBC, UA 1 0 - 5 /HPF [facility] Bacteria, UA Few None seen [facility] WBC clumps, UA Few (A) [facility] Yeast, UA None seen [facility] Yeast with None seen [facility] pseudohyphae, HOSPITAL Amorphous crystals Few [facility] Granular casts, UA 1 0 - 1 /LPF [facility] Specimen Urine Performing Organization Address City/State/ZIP Code Phon e Number [facility] DEPARTMENT OF PATHOLOGY AND [address] [place] [phone] GENOMIC MEDICINE [address] [address] Hepatitis B surface Ab, quantitative (06/18/2019 5:00 AM EXCHANGE ENGINEER) Hepatitis B surface <3.10 IU/L [facility] Ab Comment: The anti-HBs is [...] and Tissue-Based Products (HCT/P) . Performed by [facility], [address] [place] [id number] www.[email or web address], Roberto Almaguer MD, Lab. Director Specimen Serum Performing Organization Address [facility] Phon e Number [facility] [address] [place] [address] [facility] [address] [place] [address] Ammonia level (06/18/2019 5:00 AM EXCHANGE ENGINEER) Pathologist Sig nature Ammonia 63 (H) 16 - 60 umol/L [facility] Specimen Blood Performing Organization Address [facility] Phon e Number [facility] DEPARTMENT OF PATHOLOGY AND [address] [place] [address] [address] Hepatitis C antibody (06/18/2019 4:00 AM EXCHANGE ENGINEER) Pathologist Sig nature Hepatitis C Ab Non-reactive Non-reactive [facility] Specimen Serum Performing Organization Address [facility] Phon e Number [facility] DEPARTMENT OF PATHOLOGY AND [address] [place] [address] [address] Alpha-1 antitrypsin level (06/18/2019 4:00 AM EXCHANGE ENGINEER) Pathologist Sig nature Alpha-1 antitrypsin 166 90 - 200 mg/dL [facility] Specimen Plasma specimen Performing Organization Address [facility] Phon e Number [facility] DEPARTMENT OF PATHOLOGY AND [address] [place] [address] [address] Hepatitis A antibody IgM (06/18/2019 4:00 AM EXCHANGE ENGINEER) Pathologist Sig nature Hepatitis A IgM Non-reactive Non-reactive [facility] Specimen Serum Performing Organization Address [facility]/ZIP Code Phon e Number [facility] DEPARTMENT OF PATHOLOGY AND [address] [place] [address] [phone] [address] Ceruloplasmin level (06/18/2019 4:00 AM EXCHANGE ENGINEER) Pathologist Sig nature Ceruloplasmin 22 15 - 30 mg/dL [facility] Specimen Plasma specimen Performing Organization Address City/[facility]/ZIP Code Phon e Number [facility] DEPARTMENT OF PATHOLOGY AND [address] [place] [address] [phone] [address] Alpha fetoprotein (06/18/2019 4:00 AM EXCHANGE ENGINEER) Alpha fetoprotein 1.6 0.0 - 8.3 [place] Comment: ng/mL [facility] The Lexis 8000 AFP immunoassay was used. HOSPITAL Results obtained with different assay methods or kits should not be used interchangeably and may be differen t. Specimen Serum Performing Organization Address [facility] Phon e Number [facility] DEPARTMENT OF PATHOLOGY AND [address] [place] [address] [phone] [address] Hepatitis B core antibody IgM (06/18/2019 4:00 AM EXCHANGE ENGINEER) Pathologist Sig nature Hepatitis B core Non-reactive Non-reactive [facility] IgM HOSPITAL Specimen Serum Performing Organization Address City/[facility]/ZIP Code Phon e Number [facility] DEPARTMENT OF PATHOLOGY AND [address] [place] [address] [phone] [address] Hepatitis B core antibody total (06/18/2019 4:00 AM EXCHANGE ENGINEER) Pathologist Sig nature Hepatitis B core Non-reactive Non-reactive [facility] total Ab HOSPITAL Specimen Serum Performing Organization Address City/State/ZIP Code Phon e Number [facility] DEPARTMENT OF PATHOLOGY AND [address] [place] [address] [phone] [address] Hepatitis B surface antibody (06/18/2019 4:00 AM EXCHANGE ENGINEER) Pathologist Sig nature Hepatitis B surface Non-reactive Non-reactive [facility] Ab [facility] Specimen Serum Performing Organization Address City/[facility]/ZIP Code Phon e Number [facility] DEPARTMENT OF PATHOLOGY AND [address] [place] [address] Hepatitis B surface antigen (06/18/2019 4:00 AM EXCHANGE ENGINEER) Pathologist Sig nature Hepatitis B surface Non-reactive Non-reactive [facility] Specimen Serum Performing Organization Address City/[facility]/ZIP [facility] Phon e Number [facility] DEPARTMENT OF PATHOLOGY AND [address] [place] [address] ANNE (06/18/2019 4:00 AM EXCHANGE ENGINEER) ANNE screen Negative Negative [facility] Comment: HOSPITAL Test performed using NOVNovavax DAPI ANNE kit (Indirect Immunofluorescence Assay) for Anti-Nuclear Antibody on [employer] 160 Analyzer. Specimen Blood Performing Organization Address City/[facility] Phon e Number [facility] DEPARTMENT OF PATHOLOGY AND [address] [place] [address] GGT (06/18/2019 4:00 AM EXCHANGE ENGINEER) Pathologist Sig nature GGT 80 (H) 0 - 59 U/L [facility] Specimen Plasma specimen Performing Organization Address City/[facility] Phon e Number [facility] DEPARTMENT OF PATHOLOGY AND [address] [place] [address] [place] Abdomen Complete (06/17/2019 4:48 PM EXCHANGE ENGINEER) Specimen Narrative Performed At EXAM: US ABDOMEN COMPLETE [facility] CLINICAL DATA: 53 years Male Cirrho [...] participate in the care of your patient. [facility]-[id number] Procedure Note Hm Interface, Radiology Results Incoming - 06/17/2019 4:59 PM EXCHANGE ENGINEER EXAM: US ABDOMEN COMPLETE CLINICAL DATA: [...] participate in the care of your patient. [facility]-[id number] Performing Organization Address City/State/ZIP Code Phon e Number [facility] [address] [place] [address] [place] Abdominal Doppler (06/17/2019 4:48 PM EXCHANGE ENGINEER) Specimen Narrative Performed At EXAMINATION: US [facility]: rule out portal [...] and vein are identified and are patent. [facility]-[id number] Procedure Note Interface, Radiology Results Incoming - 06/17/2019 4:55 PM EXCHANGE ENGINEER EXAMINATION: US ABDOMINAL DOPPLER CLINICAL HISTORY: [...] and vein are identified and are patent. [facility]-[id number] Performing Organization Address [facility]/ZIP Code Phon e Number [facility] [address] [place] [address] [place] Renal (06/17/2019 2:26 PM EXCHANGE ENGINEER) Specimen Narrative Performed At EXAMINATION: US RENAL [facility] CLINICAL HISTORY: Flank pain stone d isease suspected COMPARISON: None. IMPRESSION: The right kidney measures 12 cm in jeanine gth. The left kidney measures 13.9 cm in le ngth. There is no renal mass, stone, cyst, or hydronephrosis . Echogenicity is normal. The urinary bladder is unremarkable. [id number] Procedure Note Interface, Radiology Results Incoming - 06/17/2019 2:32 PM EXCHANGE ENGINEER EXAMINATION: US RENAL CLINICAL HISTORY: Flank pain stone dis ease suspected COMPARISON: None. IMPRESSION: The right kidney measures 12 cm in juan ramon th. The left kidney measures 13.9 cm in jeanine gth. There is no renal mass, stone, cyst, or hydronephrosis. Echogenicity is normal. The urinary bladder is unremarkable. [facility]-[id number] Performing Organization Address City/State/ZIP Code Phon e Number [facility] [address] [place] [address] Celiac disease reflexive cascade (06/17/2019 4:53 AM EXCHANGE ENGINEER) IgA 449 (H) 68 - 408 mg/dL [facility] Comment: Total IgA is within or higher than established ranges. Tissue Transglutaminase, IgA to follow. REFERENCE INTERVAL: Immunoglobulin A Access complete set of age- and/or gender-specific ref erence intervals for this test in the [facility] Laboratory Test Di rectory ([employer]). Performed by [facility], [address] [place] [address] www.[email or web address], Roberto Almaguer MD, Lab. Director Specimen Serum Narrative Performed At [facility] called with reae back to [address] at 06/16/2019 [facility] 08:04 by NEFTALY. Performing Organization Address [facility] Phon e Number [facility] [address] [id number] [facility] [address] [place] [address] Tissue transglutaminase Ab, IgA (06/17/2019 4:53 AM EXCHANGE ENGINEER) Tissue 1 0 - 3 U/mL [facility] REF transglutaminase Ab, Comment: LAB IgA [...] sitive predictive value for disease. Performed by [facility], [address] [place] [id number] www.[email or web address], Roberto Almaguer MD, Lab. Director Specimen Serum Narrative Performed At [facility] called with reae back to [address] at 06/16/2019 [facility] 08:04 by NEFTALY. Performing Organization Address [facility]/ZIP Code Phon e Number [facility] [address] [place] [address] [facility] [address] [place] [address] Fecal calprotectin (06/15/2019 4:30 PM EXCHANGE ENGINEER) Pathologist Sig nature Fecal calprotectin 57.64 <15.6-120mg/kg [facility] Specimen Blood Performing Organization Address City/State/ZIP Code Phon e Number [facility] DEPARTMENT OF PATHOLOGY AND [address] [place], [place] [address] GENOMIC MEDICINE [facility] [address] [place] [address] Spirometry, diffusion, lung volumes (06/15/2019 2:29 PM EXCHANGE ENGINEER) Pathologist Sig nature FEV1 Pre 2.23 [...] is no t available. Performing Organization Address City/State/[facility] Code Phon e Number [facility] [address] [place] [address] Us carotid duplex (06/15/2019 11:31 AM EXCHANGE ENGINEER) Specimen Narrative Performed At [facility] Carotid A rtery Duplex Report [address] [place] [address] For aircraft quality control inspector purposes, the categorization of the degree of the stenosis of this exam is based on criteria described i n the IAC carotid stenosis grading white paper( www.intersocietal.org/Va scular) and Thanh Nava., Derrick Fountain., et al. Carotid artery stenosis: wagner-scale and Doppler US diagnosis-- Society of Radiologists in Ultrasound Consensus Conference. Radio logy. 2002; 229(2):340-6. Pat.Name: PAOLA KWONG Pat.ID: [id number] .Date: 06/15/2019 Refer.MD: MILTON ELLINGTON MD Exam Time: 11:04:00 AM Study Type:Ca rotid Height: 67in Weight: 212lb BSA: 2.07 m2 Ag e: 1965,53Y Sex: MALE BP: 116/68 Sonogrphr: Suad Greco, RDCS, RVT Pat. Stat.:Inpatient Room: [address] ol: ED, CPT - 4: [address] Doretha Jo nt ID:[id number] Order ID: [id number] Reason for Study:Pre-op evaluation History / Clinical:Smoker, CAD, S/p NE, DM, HTN, HLD, Liver cirrhosis, Chest pain, [...] Ultrasound Laboratory Carotid Artery Dupl ex Report [address] [facility] [address] , [place] [address] For aircraft quality control inspector purposes, the sarah gorization of the degree of the stenosis of this exam is based on criteria described in the IAC carotid stenosis grading white paper( www.intersocietal.org/Vascular) and Thanh Nava., Derrick Fountain., et al. Carotid artery stenosis: wagner-scale and Doppler US diagnosis--Society of Radiologists in Ultrasound Consensus Conference. Radiology. 2003 Feb; 229(2):340-6. Pat.Name: PAOLA KWONG Pat.I D: [id number] St.Date: 06/15/2019 Refer.MD: MILTON ELLINGTON MD Exam Time: 11:04:00 AM Study Type:Carotid Height: 67in Weigh t: 212lb BSA: 2.07 m2 Age: 6 1965,53Y Sex: MALE BP: 116/68 Sonogrphr: Suad Greco RDCS, RVT Pat. Stat.:Inpatient Room: [address] Vol: ED, CPT - 4: 57320 Echo Event ID:[id number] Order ID: [id number] Reason for Study:Pre-op evaluation History / Clinical:Smoker, CAD, S/p NE, DM, HTN, HLD, Liver cirrhosis, Chest pain, [...] MD, RPVI Performing Organization Address City/State/ZIP Code [facility] e Number [facility] [address] [place] [address] Gastrointestinal panel (06/14/2019 5:48 AM EXCHANGE ENGINEER)Only the most recent of2 results within the time period is included. Pathologist [facility] Gastrointestinal panel Negative for all pathogens tested: [place] Negative for Salmonella [facility] Negative for Campylobacter [facility] Negative for Diarrheagenic E coli/Shigella Negative [...] Specimen Stool - Nonpreserved Performing Organization Address City/[facility]/ZIP [facility] Phon e Number [facility] DEPARTMENT OF PATHOLOGY AND [address] [place] [address] [phone] [address] Thyroid stimulating hormone (06/14/2019 5:14 AM EXCHANGE ENGINEER) Pathologist Sig nature TSH 1.95 0.27 - 4.20 uIU/mL [facility] ITAL Specimen Plasma specimen Performing Organization Address City/[facility] Phon e Number [facility] DEPARTMENT OF PATHOLOGY AND [address] [place] [address] [phone] [address] T4, free (06/14/2019 5:14 AM EXCHANGE ENGINEER) Pathologist Sig nature T4, free 0.8 (L) 0.9 - 1.7 ng/dL [facility] L Specimen Plasma specimen Performing Organization Address [facility] Phon e Number [facility] DEPARTMENT OF PATHOLOGY AND [address] [place] [address] [phone] [address] Hemoglobin A1c (06/14/2019 5:14 AM EXCHANGE ENGINEER) Hemoglobin A1C 12.6 (H) 4.0 - 5.6 % [facility] Comment: HOSPITAL HbA1c cutoffs for diagnosing [...] 1 diabetes. Specimen Blood Performing Organization Address City/[facility] Phon e Number [facility] DEPARTMENT OF PATHOLOGY AND [address] [place] [address] [phone] [address] Lipid panel (06/14/2019 5:14 AM EXCHANGE ENGINEER) Cholesterol 177 <200 mg/dL [facility] Triglycerides 407 (H) <150 mg/dL [facility] HDL cholesterol 32 (L) >40 mg/dL [facility] LDL cholesterol 104 (H)Comment: <100 mg/dL [place] Result obtained by [facility] direct [facility] measurement Lipid panel [facility] interpretation Comment: [facility] Total Cholesterol (mg/dL) HOSPIT AL <200 Desirable [...] mg/dL) Specimen Plasma specimen Performing Organization Address City/[facility] Phon e Number [facility] DEPARTMENT OF PATHOLOGY AND [address] [place] [phone] [facility] MEDICINE [address] [address] Manual differential (06/14/2019 4:59 AM EXCHANGE ENGINEER) Manual differential PERFORMED [facility] Neutrophils 53.0 39.0 - 69.0 % [facility] Lymphocytes 36.0 25.0 - 45.0 % [facility] Monocytes 6.0 0.0 - 10.0 % [facility] Eosinophils 4.0 0.0 - 5.0 % [facility] Basophils 1.0 0.0 - 1.0 % [facility] Metamyelocytes 0 % [facility] Promyelocytes 0 % [facility] Platelet slide review Rebekah adequate [facility] Anisocytosis Moderate [facility] Polychromasia Moderate [facility] Ovalocytes Moderate [facility] Specimen Performing Organization Address City/[facility] Phon e Number [facility] DEPARTMENT OF PATHOLOGY AND [address] [place] [phone] [facility] MEDICINE [address] [address] Influenza antigen (06/12/2019 9:15 PM EXCHANGE ENGINEER) Influenza antigen Negative for Influenza A/B antigen. [facility] Comment: HOSPITAL Specimen Information Specimen Source: Nares Specimen Site: Right Specimen Nares - Right Performing Organization Address [facility] Phon e Number [facility] DEPARTMENT OF PATHOLOGY AND [address] [place] [address] [phone] [address] Partial thromboplastin time, activated (06/12/2019 7:49 PM EXCHANGE ENGINEER) PTT 28.1 23.0 - 36.0 [facility] Comment: banner HOSPITAL PTT therapeutic range for unfractionated heparin is 61.0-112.0 seconds which corresponds to Anti-Xa 0.3-0.7 U/ml. Specimen Blood Performing Organization Address [facility] Phon e Number [facility] DEPARTMENT OF PATHOLOGY AND [address] [place] [address] [phone] [address] after 04/24/2019 Insurance Payer Benefit Plan / Subscriber ID Effective Dates Phone Addre ss Type Group Silver Curve [facility] [id number] 2019-[employer] Exchange CHOICE EXCHANGE EXCHANGE t [employer] Advance Directives For more information, please contact: [phone] Type Date Recorded Patient Icu Registered Nurse Explanati on Advance Directives, Living 03/20/2018 10:24 PM Will and Medical 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
--- OUTSIDE RECORDS SUMMARY | 2020-04-24 10:31 | XMS REPORT | Clinical Summary ---
:1965 Author Organization [facility] Address [address] [place] [address] Care Team Providers Name Role Phone MD [...] VACCINE (#1) 2019 Results Not on fileafter 04/24/2019 Advance Directives For more information, please contact: [phone] Code Status Date Activated Date Inactivated Comments Full Code 01/06/2019 5:51 PM 01/11/2019 7:13 PM This code status was determined by: Patient
[2020-04-24 10:34] LABS: Basophils % 1.3 % (0-1.3); Hematocrit 31.7 % (39.6-49.0); Lymphocytes % 22.8 % (15.3-44.8); MPV 11.1 fL (7.6-11.3); RBC Red Blood Cell Count 3.29 M/uL (4.33-5.43)
--- OUTSIDE RECORDS SUMMARY | 2020-04-24 10:36 | XMS REPORT | Continuity of Care Document ---
:1965 Author Organization [facility] t Address [address] [place] [address] Care Team Providers Name Role Phone Jere BOSS Primary Care Physician Asael LAYTON Attending Clinician Miguel LAYTON, F [...] Type Policy Effective Date Expiration Date Sour Number [facility] [id number] 2019 [place] CHOICE 00:00:00 [facility] [facility] EXCHANGE MARKETPLACExxxxxx [id number] 2019-Pr esentExchange Problems Condition Condition Condition Status Onset Resolution Last Treating Co mments Source Name Details Category Date Date Treatment Clinician Date Diabetic Diabetic Disease Active [place] [facility] 00 Chronic Chronic Disease Active [place] kidney kidney 2-19 Methodi disease, disease, 00:00: st stage III stage III 00 (moderate) (moderate) Diarrhea, Diarrhea, Disease Active Ferdinand ston unspecifie unspecifie 06-16 Pr thodi d d 00:00: st 00 Edema of Edema of Disease Active [place] left orbit left orbit 06-16 Me thodi 00:00: st 00 Hyperglyce Hyperglyce Disease Active [facility] cristóbal cristóbal 2-15 Methodi 00:00: st 00 Subdural Subdural Disease [facility]08 - due to due to 00:00: Medical concussion concussion 00 Ce nter , with , with loss of loss of consciousn consciousn ess, ess, subsequent subsequent encounter encounter Unstable Unstable Disease [facility] Lu - 00[facility]: Medical 00 Center Hyperglyce Hyperglyce [...] 00 Center Acute Acute Disease Active 2017-04 [place] renal renal 1-23 Methodi failure failure 00:00: st 00 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-14 Meth susi diabetes diabetes 00:00: st mellitus mellitus 00 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 0-13 Methodi 00:00: st 00 [...] disease disease 00:00: st involving involving 00 [place] 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 Cirrhosis Cirrhosis Disease Active Ferdinand ston 12-01 Methodi 00:00: st 00 Hypertrigl Hypertrigl Disease Active H [place] yceridemia yceridemia 12-01 Pr thodi 00:00: st 00 Depression Depression Disease Active [place] 12-01 Methodi 00:00: st 00 Allergies, Adverse Reactions, Alerts Allergy Allergy Status Severity Reaction(s) Onset Inactive Treating Comm ents Source Name Type Date Date Clinician Ketorola Propensi Active [facility]uc[facility] ty to ns 2-15 Methodi [...] s to drug Codeine Propensi Active Hives [place] ty to 8-06 Methodi adverse 00:00: st reaction 00 s to drug Hydrocod Propensi Active Hives, [place] one-Acet ty to Itching 2-28 Methodi aminophe adverse 00:00: st n reaction 00 s to drug Family History Family Member Diagnosis Comments Start Date Stop Date Source Natural father No Known Problem [facility] Natural father Diabetes [place] [facility] Natural mother Heart disease [facility] Natural mother Hypertension [facility] Natural mother Diabetes [place] [facility] Natural mother Hypertension [place] [facility] Social History Social Habit Start Date Stop Date Quantity Comments Source History SDNY [facility] - [facility] St[facility] SDOH [facility] - Alcohol Binge Medical [facility] History of tobacco Cigarette Smoker [place] use [facility] Sex Assigned At [place] [facility] Cigarettes smoked 2019-07-06 2019-07-06 [place] current (pack per 00:00:00 00:00:[address] day) - Reported Tobacco use and 2019-07-06 2019-07-06 Never used [place] exposure 00:00:00 00:00:00 [facility] Alcohol intake 2019-07-06 2019-07-06 Current [place] 00:00:00 00:00:00 non-drinker of An[facility]ist alcohol (finding) History [facility] 2019-01-06 2019-01-[address] [facility] - Alcohol Frequency 00:00:00 00:00:00 [facility] Tobacco Comment 2019-01-06 2019-01-06 smokes [address] [facility] - 00:00:00 00:00:00 day, started Medical [facility] er again 3 years ago Smoking [...] 00:[address] 04 :00 lisinopril 2019- No 20mg QD Take 20 mg [place] (PRINIVIL,Z -20 -20 by mouth Met hodi ESTRIL) 20 17:37: 00:[address] mg tablet 04 :00 clopidogrel 2019- No 75mg QD Take 75 mg [place] (PLAVIX) 75 -15 07-20 by mouth Met hodi mg tablet 17:37: 00:[address] 04 :00 gabapentin 2019- No 1200mg QD Take 1,200 [place] (NEURONTIN) [...] mouth st 04 :00 daily. atenolol 2019- No 50mg QD Take 50 mg [place] (TENORMIN) -15 07-20 by mouth Meth susi 50 MG 12:21: 00:[address] tablet 02 :00 atenoloL 2019-2019- No 50mg QD Take 1 [place] (TENORMIN) -15 08-19 tablet (50 Me thodi 50 MG 00:00: 23:59 mg total) st tablet 00 :00 by mouth daily for 30 days. citalopram 2019- No 20mg QD Take 1 [place] (CeleXA) 20 -20 -19 tablet (20 M ethodi MG tablet 00:00: 23:59 mg total) st 00 :00 by mouth daily for 30 days. gabapentin 2020- No 300mg QD Take 0.5 H [...] by mouth nightly for 30 days. brimonidine 2019- 2020- No 1[drp] Q.[id number] Administer [place] (ALPHAGAN) 07-15 [id number] 1 drop Methodi 0.15 % 00:00: 23:[address] ophthalmic 00 :00 left eye solution every 8 (eight) hours for 30 days. calcium 2019-2019- No 667mg Q.[id number] Take 1 [place] acetate,tate -08-14 [id number] capsule Methodi sphat bind, 00:00: 23:59 3D ([address] (PHOSLO) 00 :00 total) by 667 mg mouth 3 capsule (three) times a day with meals for 30 days. dorzolamide 2019-2019- No 1[drp] Q.5D Administer [place] -timolol 07-15 1 drop Methodi (COSOPT) 00:00: [...] 20U QD Inject 20 [place] (HumuLIN-N) -15 08- Units Method i 100 unit/mL 00:00: 23:[address] injection 00 :00 skin daily for 30 days. isosorbide 2019-0 2020- No 60mg QD Take 1 [place] mononitrate 07-15 tablet (60 M ethodi (IMDUR) 60 00:00: 23:59 mg total) s t MG 24 hr 00 :00 by mouth tablet daily for 30 days. latanoprost 2019- 2020- No 1[drp] QD Administer [place] (XALATAN) 07-15 1 drop Methodi 0.005 % 00:00: 23:[address] ophthalmic 00 :00 left eye solution nightly for 30 days. levETIRAcet 2020-0 2020- No 250mg Q.5D Take 1 [place] am (KEPPRA) 07-15 tablet Metho di 250 MG 00:00: 23:59 ([address] tablet 00 :00 total) by mouth 2 (two) times a day for 30 days. methocarbam 2019-0 2020- No 500mg Q.[id number] Take 1 [place] oL 07-15 [id number] tablet Method i (ROBAXIN) 00:00: 23:59 3D ([address] 500 MG 00 :00 total) by tablet mouth 3 (three) times a day as needed for muscle spasms for up to 30 days. nystatin 2020-0 2020- No Q.5D Apply [place] (MYCOSTATIN 07-15 topically Me thodi ) 100,000 00:00: 23:59 2 (two) st unit/gram 00 :00 times a powder day for 30 days. polyethylen 2019-0 2020- No 17g QD Take 17 g [place] e glycol 07-15 by mouth Method i (MIRALAX) 00:00: 23:[address] 17 gram 00 :00 30 days. packet riFAXimin 2019-0 2020- No 550mg Q.5D Take 1 [place] (XIFAXAN) 07-15 tablet Methodi 550 mg 00:00: 23:59 ([address] tablet 00 :00 total) by mouth 2 (two) times a day for 30 days. sevelamer 2020-0 2020- No 800mg Q.[id number] Take 1 [place] (RENVELA) 07-15 [id number] tablet M ethodi 800 mg 00:00: 23:59 [...] mouth Luke s - tablet 17:13: daily. [address] citalopram 2018-0 Yes 20mg QD Take [address] (CELEXA) 20 9-16 by mouth Luke s - MG tablet 17:13: daily. [address] gabapentin 0 Yes 300mg QD Take [address] (NEURONTIN) 9-16 mg by [facility] - 300 MG 17:13: mouth Medical capsule 05 daily. [place] clopidogrel 2019- Yes 75mg QD Take [address] (PLAVIX) 75 9-16 by mouth Luke s - mg tablet 17:13: daily. [address] simvastatin 2019-0 Yes 80mg QD Take [address] (ZOCOR) 80 9-16 by mouth Lukes - MG tablet 17:13: daily. [address] spironolact 2019-0 Yes 25mg QD Take [address] one 9-16 by mouth Lukes - (ALDACTONE) 17:13: daily. [facility] warren [address] [place] [address] tablet levETIRAcet 2019-0 Yes 500mg QD Take [address] am (KEPPRA) 9-16 mg by Lukes - 500 MG 17:13: mouth Medical tablet 05 daily. [place] insulin 2019- Yes 80U Inject 80 [facility] 70/30, 9-16 Units Lukes - insulin 17:13: subcutaneo Medi warren NPH-insulin 05 usly 2 Center regular, (two) (HUMULIN times 70/30) 100 daily unit/mL before (70-30) meals. injection travoprost Yes 1[drp] QD Place [address] (TRAVATAN 9-16 drop into [facility]ukes - Z) 0.004 % 17:13: both eyes Me dical Drop 05 nightly. [place] ophthalmic drops furosemide Yes 20mg QD Take [...] 00:[address] tablet 00 :00 citalopram 2020- No 20mg QD Take 20 [...] blood 2019-12-28 22:43:00 122 mm[Hg] Ismaelto n [facility]ist pressure Diastolic blood 2019-12-28 22:43:00 73 mm[Hg] Ismaelt on Anab[facility]ist pressure Heart rate 2019-12-28 22:43:00 74 /min [...] BASIC METABOLIC PANEL 2019-07-16 04:00:00 Yunier Stephens [facility]ist [place] PHOSPHORUS LEVEL 2019-07-16 04:00:00 Yunier Stephens [facility]ab[facility]ist Wiley ESTIMATED GFR 2019-07-16 04:00:00 Yunier Stephens [...] Wright ESTIMATED GFR 2019-07-15 05:30:00 Andrews [place] Pr thodist POC GLUCOSE 2019-07-14 21:08:00 [place] POC GLUCOSE 2019-07-14 16:55:00 [place] POC GLUCOSE 2019-07-14 13:49:00 [place] POC GLUCOSE 2019-07-14 11:48:00 [place] HEMODIALYSIS 2019-07-14 09:13:12 Yunier Stephens ethodist Wiley POC GLUCOSE 2019-07-14 08:13:00 [place] BASIC METABOLIC PANEL 2019-07-14 05:10:00 Yunier Stephens [facility]ist Wiley MAGNESIUM LEVEL 2019-07-14 05:10:00 Yunier Stephens ethodist Wiley PHOSPHORUS LEVEL 2019-07-14 05:10:00 Yunier Stephens Wiley HC COMPLETE BLD COUNT 2019-07-14 05:10:00 Yunier Stephens W/AUTO DIFF Wiley ESTIMATED GFR 2019-07-14 05:10:00 Yunier Stephens ethodist Wiley POC GLUCOSE 2019-07-14 02:44:00 [place] POC GLUCOSE 2019-07-13 21:27:00 [place] [facility] POC GLUCOSE 2019-07-13 16:22:00 [place] POC GLUCOSE 2019-07-13 13:08:00 [place] POC GLUCOSE 2019-07-13 07:55:00 [place] BASIC METABOLIC PANEL 2019-07-13 03:25:00 Yunier Stephens [facility]ist Wiley MAGNESIUM LEVEL 2019-07-13 03:25:00 Yunier Stephens ethodist Wiley PHOSPHORUS LEVEL 2019-07-13 03:25:00 Yunier Stephens Wiley ESTIMATED GFR 2019-07-13 03:25:00 Yunier Stephens ethodist Wiley POC GLUCOSE 2019-07-12 21:00:00 [place] [facility] POC GLUCOSE 2019-07-12 17:06:00 [place] POC GLUCOSE 2019-07-12 16:06:00 [place] [facility] POC GLUCOSE 2019-07-12 14:25:00 [place] [facility] POC GLUCOSE 2019-07-12 12:07:00 [place] HEMODIALYSIS 2019-07-12 08:45:38 Yunier Stephens ethodist Wiley POC GLUCOSE 2019-07-12 08:44:00 [place] BASIC METABOLIC PANEL 2019-07-12 04:00:00 Yunier Stephens [facility] Wiley MAGNESIUM LEVEL 2019-07-12 04:00:00 Yunier Stephens [...] COMPLETE BLD COUNT 2019-07-11 05:45:00 Yunier Stephens [facility] W/AUTO DIFF Wiley BASIC METABOLIC PANEL 2019-07-11 04:00:00 Yunier Stephens [facility] Wiley MAGNESIUM LEVEL 2019-07-11 04:00:00 Yunier Stephens ethodist Wiley PHOSPHORUS LEVEL 2019-07-11 04:00:00 Yunier Stephens Wiley ESTIMATED GFR 2019-07-11 04:00:00 Yunier Stephens ethodist Wiley POC GLUCOSE 2019-07-11 00:11:00 [place] POC GLUCOSE 2019-07-10 22:12:00 [place] POC GLUCOSE 2019-07-10 17:24:00 [place] BASIC METABOLIC PANEL 2019-07-10 13:40:00 Yunier Stephens [facility] Wiley MAGNESIUM LEVEL 2019-07-10 13:40:00 Yunier Stephens ethodist Wiley PHOSPHORUS LEVEL 2019-07-10 13:40:00 Yunier Stephens Wiley HC COMPLETE BLD COUNT 2019-07-10 13:40:00 Yunier Stephens [facility] W/AUTO DIFF Wiley FERRITIN LEVEL 2019-07-10 13:40:00 Angelo Timjalen [place] ethodist Wiley TOTAL IRON BINDING CAPACITY 2019-07-10 13:40:00 Stephens, Tim Johnson Wiley ESTIMATED GFR 2019-07-10 13:40:00 Angelo Timjalen [place] ethodist Wiley POC GLUCOSE 2019-07-10 12:34:00 [place] HEMODIALYSIS 2019-07-10 11:22:47 Tani StephensHenry Lefty [place] ethodist Wiley POC GLUCOSE 2019-07-10 08:16:00 [place] POC GLUCOSE 2019-07-09 21:45:00 [place] POC GLUCOSE 2019-07-09 16:49:00 [place] FL MODIFIED BARIUM SWALLOW 2019-07-09 13:51:35 Raj Moss Yoandy POC GLUCOSE 2019-07-09 12:22:00 [place] POC GLUCOSE 2019-07-09 08:03:00 [place] BASIC METABOLIC PANEL 2019-07-09 04:00:00 Yunier Stephens Wiley MAGNESIUM LEVEL 2019-07-09 04:00:00 Angelo Yunier [...] [place] BASIC METABOLIC PANEL 2019-07-08 04:00:00 Yunier Stephensist Wiley MAGNESIUM LEVEL 2019-07-08 04:00:00 Yunier Stephens ethodist Wiley PHOSPHORUS LEVEL 2019-07-08 04:00:00 Yunier Stephens Wiley ESTIMATED GFR 2019-07-08 04:00:00 Yris [place] Me thodist POC GLUCOSE 2019-07-07 21:30:00 [place] HYPERSENSITIVITY 2019-07-07 17:30:00 [facility] Met hodjose PNEUMONITIS II Yoandy POC GLUCOSE 2019-07-07 17:19:00 [place] IMMUNOGLOBULIN G 2019-07-07 16:11:00 [facility] Met hodist Yoandy ANTI-NEUTROPHILIC 2019-07-07 14:30:00 Yunier Stephens CYTOPLASMIC ABS PANEL Wiley SS-B ANTIBODY 2019-07-07 14:30:00 [facility] Meth odist Yoandy CENTROMERE ANTIBODY 2019-07-07 14:30:00 [facility]ist Yoandy DOUBLE-STRANDED DNA (DSDNA) 2019-07-07 14:30:00 Tim Stephens [facility] ANTIBODIES, CRITHIDIA Wiley POC GLUCOSE 2019-07-07 12:08:00 [...] Stephens Wiley RHEUMATOID FACTOR 2019-07-06 05:20:00 Yunier Stpehens Wiley BASIC METABOLIC PANEL 2019-07-06 05:20:00 Yunier [...] CONTRAST, 2019-07-05 09:25:06 [place] W DOPPLER ([id number]) POC GLUCOSE 2019-07-05 08:17:00 [place] BASIC METABOLIC PANEL 2019-07-05 05:14:00 Yunier Stephens [facility] Wiley MAGNESIUM LEVEL 2019-07-05 05:14:00 StephensYunier ethodist Wiley PHOSPHORUS LEVEL 2019-07-05 05:14:00 Yunier Stephens Wiley VANCOMYCIN LEVEL, RANDOM 2019-07-05 05:14:00 [place] ESTIMATED GFR 2019-07-05 05:14:00 [place] HEPATIC FUNCTION PANEL 2019-07-05 05:14:00 [place] [facility] POC GLUCOSE 2019-07-04 21:44:00 [place] POC GLUCOSE 2019-07-04 17:22:00 [place] POC GLUCOSE 2019-07-04 15:52:00 [place] POC GLUCOSE 2019-07-04 11:56:00 [place] POC GLUCOSE 2019-07-04 07:49:00 [place] BASIC METABOLIC PANEL 2019-07-04 05:16:00 Yunier Stephens [facility] Wiley MAGNESIUM LEVEL 2019-07-04 05:16:00 Yunier Stephens ethodist Wiley PHOSPHORUS LEVEL 2019-07-04 05:16:00 Yunier Stephens Wiley ESTIMATED GFR 2019-07-04 05:16:00 Yunier Stephens ethodist Wiley POC GLUCOSE 2019-07-03 21:52:00 [place] [facility] POC GLUCOSE 2019-07-03 16:16:00 [place] POC GLUCOSE 2019-07-03 12:31:00 [place] POC GLUCOSE 2019-07-03 11:50:00 [place] POC GLUCOSE 2019-07-03 07:48:00 [place] BASIC METABOLIC PANEL 2019-07-03 04:00:00 Yunier Stephens [facility]ist Wiley MAGNESIUM LEVEL 2019-07-03 04:00:00 Stephens, Yunier Madrid ethodist Wiley PHOSPHORUS LEVEL 2019-07-03 04:00:00 AngeloYunier Wiley VANCOMYCIN LEVEL, RANDOM 2019-07-03 04:00:00 [place] ESTIMATED GFR 2019-07-03 04:00:00 Angelo Yunier Madrid ethodist Wiley POC GLUCOSE 2019-07-02 21:29:00 [place] POC GLUCOSE 2019-07-02 18:48:00 [place] BASIC METABOLIC PANEL 2019-07-02 16:05:00 StephensYunier Wiley ESTIMATED GFR 2019-07-02 16:05:00 Angelo Yunier Madrid ethodist Wiley POC GLUCOSE 2019-07-02 16:03:00 [place] VENIPUNC NEED PHYS SKILL,DX 2019-07-02 14:59:18 Kaykay Rain OR RX POC GLUCOSE 2019-07-02 11:52:00 [place] POC GLUCOSE 2019-07-02 08:44:00 [place] VANCOMYCIN LEVEL, RANDOM 2019-07-02 04:00:00 [place] BASIC METABOLIC PANEL 2019-07-02 04:00:00 StephensYunier Wiley MAGNESIUM LEVEL 2019-07-02 04:00:00 Angelo Yunier Madrid ethodist Wiley PHOSPHORUS LEVEL 2019-07-02 04:00:00 StephensYunier Wiley ESTIMATED GFR 2019-07-02 04:00:00 [place] [...] [place] ESTIMATED GFR 2019-06-29 04:54:00 Yris [place] Pr thodist POC GLUCOSE 2019-06-28 20:33:00 [place] [...] Oquendo odjose BASIC METABOLIC PANEL 2019-06-27 05:14:00 Yunier Stephens [facility]ist Wiley MAGNESIUM LEVEL 2019-06-27 05:14:00 Yunier Stephens ethodist Wiley PHOSPHORUS LEVEL 2019-06-27 05:14:00 Yunier Stephens Wiley VANCOMYCIN LEVEL, RANDOM 2019-06-27 05:14:00 [place] ESTIMATED GFR 2019-06-27 05:14:00 [place] POC GLUCOSE 2019-06-26 21:21:00 [place] POC GLUCOSE 2019-06-26 19:41:00 [place] POC GLUCOSE 2019-06-26 19:12:00 [place] ULTRAFILTRATION 2019-06-26 13:39:23 Andrews Wright Pr thodist POC GLUCOSE 2019-06-26 12:05:00 [place] POC GLUCOSE 2019-06-26 08:54:00 [place] BASIC METABOLIC PANEL 2019-06-26 06:25:00 Yunier Stephens [facility] Wiley MAGNESIUM LEVEL 2019-06-26 06:25:00 Yunier Stephens [...] BASIC METABOLIC PANEL 2019-06-25 18:45:00 Yunier Stephens Wliey PHOSPHORUS LEVEL 2019-06-25 18:45:00 Yunier Stephens Wiley [...] HEPATIC FUNCTION PANEL 2019-06-24 04:00:00 Yris [place] [facility] HC COMPLETE BLD COUNT 2019-06-24 04:00:00 Stephens, Yunier hernández Anab[facility]ist W/AUTO DIFF Wiley ESTIMATED GFR 2019-06-24 04:00:00 Stephens, Yunier Madrid ethodist Wiley POC GLUCOSE 2019-06-23 18:00:00 [place] HEMODIALYSIS 2019-06-23 12:21:38 Stephens, Yunier Madrid ethodist Wiely POC GLUCOSE 2019-06-23 11:18:00 [place] IR TUNNELED DIALYSIS 2019-06-23 10:03:03 [place] CATHETER PLACEMENT POC GLUCOSE 2019-06-23 09:54:00 [place] POC GLUCOSE 2019-06-23 08:19:00 [place] BASIC METABOLIC PANEL 2019-06-23 05:30:00 Yunier Stephens Wiley MAGNESIUM LEVEL 2019-06-23 05:30:00 StephensYunier ethodist Wiley PHOSPHORUS LEVEL 2019-06-23 05:30:00 StephensYunier Wiley HEPATIC FUNCTION PANEL 2019-06-23 05:30:00 Yris [place] HC COMPLETE BLD COUNT 2019-06-23 05:30:00 Yunier Stephens [facility] W/AUTO DIFF Wiley ESTIMATED GFR 2019-06-23 05:30:00 StephensYunier ethodist Wiley POC GLUCOSE 2019-06-22 21:30:00 [place] POC GLUCOSE 2019-06-22 12:28:00 [place] POC GLUCOSE 2019-06-22 08:38:00 [place] BASIC METABOLIC PANEL 2019-06-22 04:30:00 Yunier Stephens [facility] Wiley MAGNESIUM LEVEL 2019-06-22 04:30:00 Angelo RosmeryNayanashlyn Madrid ethodist Wiley PHOSPHORUS LEVEL 2019-06-22 04:30:00 Angelo Yunier Johnson Wiley HC COMPLETE BLD COUNT 2019-06-22 04:30:00 Angelo Yunier hernández [facility] W/AUTO DIFF Wiley HEPATIC FUNCTION PANEL 2019-06-22 [...] Yunier Stephens Wiley MAGNESIUM LEVEL 2019-06-21 04:00:00 Stephens, Yunier Olea Mercy ethodist Wiley PHOSPHORUS LEVEL 2019-06-21 04:00:00 Yunier Stephens Wiley ESTIMATED GFR 2019-06-21 04:00:00 Angelo RosmeryNayanashlyn Olea [facility] ethodist Wiley POC GLUCOSE 2019-06-20 21:33:00 [place] AEROBIC CULTURE 2019-06-20 17:32:00 [place] GRAM STAIN 2019-06-20 17:32:00 [place] POC GLUCOSE 2019-06-20 15:51:00 [place] POC GLUCOSE 2019-06-20 12:25:00 [place] POC GLUCOSE 2019-06-20 07:34:00 [place] HEPATIC FUNCTION PANEL 2019-06-20 04:00:00 Yris [place] BASIC METABOLIC PANEL 2019-06-20 04:00:00 Yunier Stephens [facility] Wiley MAGNESIUM LEVEL 2019-06-20 04:00:00 Yunier Stephens ethodist Wiley PHOSPHORUS LEVEL 2019-06-20 04:00:00 Yunier Stephens Wiley ESTIMATED GFR 2019-06-20 04:00:00 Yris [place] thodist POC GLUCOSE 2019-06-19 21:31:00 [place] CREATININE LEVEL, URINE, 2019-06-19 19:06:00 Javan Mcdowell RANDOM PROTEIN, URINE, RANDOM 2019-06-19 19:06:00 Javan Mcdowell [facility] POC GLUCOSE 2019-06-19 16:08:00 [place] POC GLUCOSE 2019-06-19 12:34:00 [place] POC GLUCOSE 2019-06-19 07:42:00 [place] ANTI MITOCHONDRIA SCREEN 2019-06-19 00:00:00 Yris [place] [facility] HEPATIC FUNCTION PANEL 2019-06-19 00:00:00 Yris [place] BASIC METABOLIC PANEL 2019-06-19 00:00:00 Yunier Stephens Anab[facility]ist Wiley MAGNESIUM LEVEL 2019-06-19 00:00:00 Yunier Stephens [...] COMPLETE BLD COUNT 2019-06-18 05:00:00 Yunier Stephens [facility]ist W/AUTO DIFF Wiley HEPATITIS B SURFACE AB, [...] Yris [place] ANNE 2019-06-18 04:00:00 Yris [place] Lefty Me thodist GGT 2019-06-18 04:00:00 Yris [place] Me thodist ESTIMATED GFR 2019-06-18 04:00:00 Yris [place] Me thodist POC GLUCOSE 2019-06-17 21:17:00 [place] POC GLUCOSE 2019-06-17 17:07:00 [place] US ABDOMEN COMPLETE 2019-06-17 16:48:45 Demond Yris Smith n [facility] US ABDOMINAL DOPPLER 2019-06-17 16:48:35 Demond Yris Cruz on Anab[facility]ist US RENAL 2019-06-17 14:26:40 Usha Oquendo Meth odist POC GLUCOSE 2019-06-17 11:38:00 [place] [facility] POC GLUCOSE 2019-06-17 08:22:00 [place] CELIAC DISEASE REFLEXIVE 2019-06-17 04:53:00 Sharon Loving Anabaptist CASCADE BASIC METABOLIC PANEL 2019-06-17 04:53:00 Yunier Stephens Anabaptist Wiley MAGNESIUM LEVEL 2019-06-17 04:53:00 Yunier Stephens ethodist Wiley PHOSPHORUS LEVEL 2019-06-17 04:53:00 Yunier Stephens [facility]ab[facility]ist Wiley ESTIMATED GFR 2019-06-17 04:53:00 Yunier Stephens ethodist Wiley TISSUE TRANSGLUTAMINASE AB, 2019-06-17 04:53:00 [place] IGA POC GLUCOSE 2019-06-17 00:44:00 [place] POC GLUCOSE 2019-06-16 21:02:00 [place] POC GLUCOSE 2019-06-16 16:27:00 [place] POC GLUCOSE 2019-06-16 12:07:00 [place] ECG 12-LEAD 2019-06-16 11:18:07 [place] POC GLUCOSE 2019-06-16 07:25:00 [place] BASIC METABOLIC PANEL 2019-06-16 04:00:00 Rosmery StephensNayanashlyn Johnson Wiley MAGNESIUM LEVEL 2019-06-16 04:00:00 Yunier Stephens ethodist Wiley PHOSPHORUS LEVEL 2019-06-16 04:00:00 Tani StephensshielaNayanashlyn Johnson Wiley ESTIMATED GFR 2019-06-16 04:00:00 Tani StephensshielaNayan Lefty Madrid ethodist Wiley POC GLUCOSE 2019-06-15 [...] W/AUTO DIFF BASIC METABOLIC PANEL 2019-06-15 03:38:00 Katiana StephensSilvioNayan Ferdinand Johnson Wiley MAGNESIUM LEVEL 2019-06-15 03:38:00 Tani StephensshielaNayanjalen Madrid ethodist Wiley PHOSPHORUS LEVEL 2019-06-15 03:38:00 Stephens, Yunier Johnson Wiley ESTIMATED GFR 2019-06-15 03:38:00 Tani StephensshielaNayanjalen Madrid ethodist Wiley POC GLUCOSE 2019-06-14 21:02:00 Milton [...] INTERPRETATION URINE CULTURE 2019-06-12 19:49:00 Guillermo Jeffery Pr thodist HC COMPLETE BLD COUNT 2019-06-12 19:49:00 Guillermo Jeffery W/AUTO DIFF COMPREHENSIVE METABOLIC 2019-06-12 19:49:00 Guillermo Jeffery PANEL TROPONIN 2019-06-12 19:49:00 [place] B NATRIURETIC PEPTIDE 2019-06-12 19:49:00 Guillermo Jeffery PARTIAL THROMBOPLASTIN TIME 2019-06-12 19:49:00 Guillermo Jeffery Ala (PTT) PROTHROMBIN TIME WITH INR 2019-06-12 19:49:00 Guillermo Jeffery ESTIMATED GFR 2019-06-12 19:49:00 Guillermo Jeffery Pr thodist URINALYSIS SCREEN AND 2019-06-12 19:49:00 Guillermo Jeffery MICROSCOPY, WITH REFLEX TO CULTURE ECG 12-LEAD 2019-06-12 19:42:16 Guillermo Jeffery Pr thodist Plan of Care Planned Activity Planned Date Details Comments Source Future Scheduled 2020-06-30 DIABETES: RETINAL EYE Ho nory [facility] Test 00:00:00 EXAM [code = DIABETES: RETINAL EYE EXAM] Future Scheduled 2019-12-28 INFLUENZA VACCINE (#1) [facility] Test 00:00:00 [code = INFLUENZA Medical Ce nter VACCINE (#1)] Future Scheduled 2019-11-27 INFLUENZA VACCINE [facility] 00:00:00 [code = INFLUENZA VACCINE] Future Scheduled 2019-04-[address] [facility] Test 00:00:00 [facility] (procedure) [code = [id number]] Future Scheduled 2017-07-30 COLONOSCOPY SCREENING [facility] 00:[facility]:00 [code = COLONOSCOPY SCREENING] Future Scheduled 2017-07-30 SHINGLES VACCINES (#1) [facility] 00:00:00 [code = SHINGLES VACCINES (#1)] Future Scheduled 2002-07-[address] [facility] Test 00:00:00 (procedure) [code = Medical Center [id number]] Future Scheduled 1983 COVID-19 VACCINE (#1) [facility] 00:00:00 [code = COVID-19 VACCINE (#1)] Future Scheduled 1977-07-[address] DI[address] E[address] EXAM [facility] - Test 00:00:00 [code = DIABETIC EYE Medical Center EXAM] Future Scheduled 1977-07-[address] [facility] Test 00:00:00 examination Medical Center (regime/therapy) [code = [id number]] Future Scheduled 1977-07-30 Urine screening for [facility] - Test 00:00:00 [facility]procedure[facility] [code = 768675172] Future Scheduled 1977-07-30 DIABETIC FOOT EXAM [place] [facility] Test 00:00:00 [code = DIABETIC FOOT EXAM] Future Scheduled 1973-07-[address] [facility] - Test 00:00:00 0-64 YRS (1 of 1 - Medical C enter PPSV23) [code = PNEUMOCOCCAL VACCINE 0-64 YRS (1 of 1 - PPSV23)] Future Scheduled [address] [facility] - Test 00:00:00 malignant neoplasm of Medica l Center colon (procedure) [code = 296914288] Encounters Start End Encounter Admission Attending Care Care Encounter Source Date/Time Date/Time Type Type Clinicians Facility Department ID 2020-04-15 2020-04-15 Emergency Vyas, [facility] [id number] 21:22:00 22:49:00 Sonia Wang 350.1.13.10 [place] 4.2.7.2.686 [place] [address] [id number] 2020-04-12 2020-04-13 Emergency Ibikunle, [facility] [id number] 23:23:00 02:16:00 Madhavi Wang 350.1.13.10 [place] 4.2.7.2.686 [place] [address] [id number] 2020-03-06 2020-03-06 [place] [id number] 10:15:17 11:17:02 Visit Esteban Wang 350.1.13.10 [place] 4.[address].7.[address] [facility] [phone] [facility] 059 Building 2019-12-28 2019-12-28 Emergency TUSUZE [facility] [id number] [place] 00:00:00 00:00:[address] 2019-06-12 2019-07-16 Inpatient CHANDANA, [facility] [id number] [place] 00:00:00 00:00:00 [place] [address] Results Test Description Test Time Test Comments Results Result Comments Source ECG 12 lead 2019-12-28 23:33:31 Test Item Value Reference Range Interpretation Comme nts Ventricular rate (test code = 253) 81 Atrial rate (test code = 255) 81 MT interval (test code = 266) 134 QRSD [...] 28-JUN-2019 09:41,-Left posterior fascicular block is now seen-Electronically Signed By Nayana BOSS, [facility] ([id number]) on 12/28/2019 11:33:30 PM [place] MethodistCT Chest Wo Abemsczm1843-54-27 21:48:29Hm Interface, Radiology Results - 12/28/2019 9:51 [facility] WO CONTRASTCLINICAL INDICA TION: coughTECHNIQUE: Multidetector [...] may represent some subcutaneous bruising for cellulitis. [facility]-[id number] [facility] Head Wo Oukotnkg0704-91-26 21:34:22 [facility], Radiology Results - 12/28/2019 9:37 PM CDTEXAM: [...] acute intracranial abnormality.[id number] MethodistXR Chest 1 Vw Sjaxxbpp3185-32-08 20:56:20Hm Interface, Radiology Results Incoming - 12/28/2019 8:59 PM CDTEXAMINATION: XR CHEST 1 PORTABLECLINICAL HISTORY: sobCOMPARISON: 06/12/2019.IMPRESSION:Right central venous catheter terminates overthe right atrium.Low lung volumes. Vascular crowding and/or congestion. No focal consolidation.No pleural effusion or pneumothorax. The cardiomediastinal silhouette is normal.No acute osseous abnormalities.[facility]-[id number] Health Hospital [facility] ED Preliminary Interpretation - Not an Dtltj7271-42-23 20:54:49 Test Item Value Reference Range Interpretation Comments BRENT (test code = BRENT) Suze Palomino MD 12/30/2019 2:41 [facility] ED Preliminary Interpretation - Not an OrderPerformed by: Suze Palomino MDAuthorized by: Suze Palomino MD ECG reviewed by ED Physician in the absence of a director audience marketing: yes Interpretation: Interpretation: abnormal Rate: ECG rate: 81 ECG rate assessment: normal Rhythm: Rhythm: sinus rhythm Conduction: Conduction: abnormal Abnormal conduction: complete RBBB Lab Interpretation Abnormal (test code = 44685-0) [facility] natriuretic qqhiwgz3831-36-68 20:16:55 Test Item Value Reference Range Interpretation Comments BNP (test code = 04998-8) 318 pg/mL 0-100 H Lab Interpretation (test code = Abnormal 49563-8) [facility] TylerKifyenrkoUpgezxxf5370-37-24 20:16:40 Test Item Value Reference Range Interpretation Comments Troponin (test code 0.016 ng/mL 0-0.04 In patie nts suspected = 95392-0) of having a augusta cardial infarction, mara [...] decreased by le ss than 0.020 ng/mL [place] MethodistComprehensive metabolic cwfkd3725-13-89 20:01:50 Test Item Value Reference Range Interpretation Comments Sodium (test code = 139 135- 148 mEq/L 2951-2) Potassium (test code = 5.3 3.5- 5.0 mEq/L H 2823-3) Chloride (test code = 97 98- 112 mEq/L L 2074-0) CO2 (test code = 2027-9) 27 24- 31 mEq/L Anion gap (test code = 15@ANIO 7- 15 mEq/L 39943-1) BUN (test code = 3094-0) 27 mg/dL 6-20 H Creatinine (test code = 3.84 mg/dL 0.7-1.2 H 2160-0) Glucose (test code = 252 mg/dL 65-99 H 2345-7) Calcium (test code = 8.8 mg/dL 8.3-10.2 21577-8) Protein (test code = 6.9 g/dL 6.3-8.3 -[place] n 2885-2) 4.6-7.0 g/dL1 week 4.4-7 .6 g/dL7 months-1y ear 5.1-7 .3 g/dL1-2 years 5.6-7 .5 g/dL>3 years 6.0-8 .0 g/eU29-901 6.3-8 .3 g/dL Albumin (test code = 2.7 g/dL 3.5-5 L 1751-7) A/G ratio (test code = 0.6 0.7-3.8 L 1759-0) Alkaline phosphatase 175 U/L 40-129 H (test code = 6768-6) AST (test code = 1920-8) 35 U/L 10-50 ALT (test code = 1742-6) 29 U/L 5-50 Total bilirubin (test 0.3 mg/dL 0-1.2 code = 1975-2) Lab Interpretation (test Abnormal code = 41946-2) [place] MethodistEstimated [id number] 20:01:41 Test Item Value Reference Range Interpretation Comments Estimated GFR (test 17 mL/min/1.73 m2 A [facility] Units code = 5488) InterpretationG 1 >=90 Cora l or highG2 60-89 Mildly decrease dG3a 45-59 Mil dly to moderately decr judxxN1q 30-44 Moderately to s everely decreasedG4 15-29 Severe ly decreasedG5 <15 Kidney jesica lureThe eGFR was calcul ated using the Chron Kidney Disease Epidemiology Collaboration ( CKD-EPI) equation. Interpretation is based on recommendati ons of the National Ki dney Foundation-Kidn ey Disease Outcome s Quality Initiat christa (NKF-KDOQI) pub lished in 2013. Lab Interpretation Abnormal (test code = 77247-5) [place] MethodistCBC with platelet and xuheoromipzw4213-59-82 19:42:47 Test Item Value Reference Range Interpretation Comments WBC (test code = 93076-7) 5.65 4.50- 11.00 k/uL RBC (test code = 85945-6) 3.75 m/uL 4.4-6 L HGB (test code = 718-7) 12.7 g/dL 14-18 L HCT (test code = 4544-3) 36.6 % 41-51 L MCV (test code = 787-2) 97.6 fL 82-100 MCH (test code = 785-6) 33.9 pg 27-34 MCHC (test code = 786-4) 34.7 g/dL 31-37 RDW - SD (test code = 50.0 fL 37-55 26686-5) MPV (test code = 24796-4) 12.9 fL 8.8-13.2 Platelet count (test code 152 150- 400 k/uL = 54072-4) Nucleated RBC (test code 0.00 /100 WBC = 86710-0) Neutrophils (test code = 65.7 % 39-69 04712-6) Lymphocytes (test code = 24.6 % 25-45 L 71446-1) Monocytes (test code = 5.3 % 0-10 62550-7) Eosinophils (test code = 3.0 % 0-5 49894-3) Basophils (test code = 0.7 % 0-1 52609-3) Immature granulocytes 0.7 % 0-1 "Immat ure (test code = 85506-4) granul ocytes" (promyelocytes, myelocytes, metamyelocytes) Lab Interpretation (test Abnormal code = 00584-0) [facility] tzfjspp8332-35-82 12:30:05 Test Item Value Reference Range Interpretation Comments POC glucose (test code = 253 mg/dL 65-99 H Ope rator Name: 79116-5) Ney Liao vice ID: [id number] able: [facility] Notified roving technician Interpretation (test Abnormal code = 99203-8) [facility] metabolic seyiy1617-21-06 07:23:50 Test Item Value Reference Range Interpretation Comments Sodium (test code = 2951-2) 142 135- 148 mEq/L Potassium (test code = 2823-3) 4.3 3.5- 5.0 mEq/L Chloride (test code = 2075-0) 105 98- 112 mEq/L CO2 (test code = 2027-9) 27 24- 31 mEq/L Anion gap (test code = 31047-4) 10@ANIO 7- 15 mEq/L BUN (test code = 3094-0) 46 mg/dL 6-20 H Creatinine (test code = 2160-0) 4.61 mg/dL 0.7-1.2 H Glucose (test code = 2345-7) 189 mg/dL 65-99 H Calcium (test code = 82561-8) 8.7 mg/dL 8.3-10.2 Lab Interpretation (test code = Abnormal 35911-4) [facility] TylerPhosphorus dtdif0955-09-90 07:23:49 Test Item Value Reference Range Interpretation Comments Phosphorus (test code = 2777-1) 4.3 mg/dL 2.4-4.5 [place] MethodistMagnesium dglhc1273-20-07 07:17:31 Test Item Value Reference Range Interpretation Comments Magnesium (test code = 78735-7) 1.9 mg/dL 1.6-2.6 [place] MethodistHypersensitivity pneumonitis SO1797-81-01 10:14:04 Test Item Value Reference Interpretation Comments Range Aspergillus flavus None Detected None-Detected Testing includes (test code = 02070-5) antibo dies directed at Aspergillus flavus, Aspergi llus fumigatus #2, Aspergillus fum igatus #3, Saccharomon ospora viridis, and Thermoactinomyc es candidus. Aspergillus fumigatus None Detected None-Detected #2 (test code = 28953-7) Aspergillus fumigatus None Detected None-Detected #3 (test code = 44870-3) Saccharomonospora None Detected None-Detected viridis (test code = 61741-2) Thermoactinomyces None Detected None-Detected Performe d by SRINIVAS barlow (test code = Terry hummel,500 37605-2) Manuela Hansen, [facility],[place] [address] bhi .arcarlol [employer], Roberto Almaguer MD, La b. Director Thermoactinomyces NOT PERFORMED saccharii (test code = WITH THIS 79837-1) PANEL [place] MethodistHypersensitivity pneumonitis W9705-84-11 01:53:46 Test Item Value Reference Interpretation Comments Range Aspergillus fumigatus None Detected None-Detected #1 (test code = 6808-0) Aspergillus fumigatus None Detected None-Detected #6 (test code = 6809-8) Aureobasidium None Detected None-Detected Testing incl udes pullulans (test code = antib odies directed 6810-6) at Aureobasidiu m pullulans, Aspergillus fum igatus #1, Aspergillus fumigatus #6, Micropolyspora faeni, Carlyle Serum an d Thermoactinomyc es vulgaris #1. Carlyle serum (test None Detected None-Detected code = 6733-0) Micropolyspora faeni None Detected None-Detected (test code = 6818-9) Thermoactinomyces None Detected None-Detected Performe d by SRINIVAS vulgaris #1 (test code Labor atories,500 = 6821-3) Manuela Hansen, [place] [address] ucm .arupl ab.[email or web address], Roberto Almaguer MD, Juanita jane. Director [place] MethodistFerritin lihhr8388-34-19 14:34:03 Test Item Value Reference Range Interpretation Comments Ferritin level (test code = 2276-4) 214 ng/mL 30-400 [place] MethodistTotal iron binding zzvtgavd2049-13-00 14:29:17 Test Item Value Reference Range Interpretation Comments Iron level (test code = 2498-4) 72 ug/dL 59-158 Iron binding capacity (test code = 298 ug/dL 339-037 1127-7) % Saturation (test code = 2502-3) 24.2 % 20-40 [place] MethodistAnti-neutrophilic cytoplasmic Abs zipxn3447-80-72 15:24:12 Test Item Value Reference Range Interpretation Comments ANCA screen (test code = 3472) Negative Negative [place] MethodistFL Modified Barium Itewtwu4240-06-78 15:02:46Hm Interface, Radiology Results - 07/09/2019 3:05 [...] refer to Speech Pathology report for further details.[facility]-[id number] and approved by rn residential/fellow: Cely Babcock, Adriana Morales MD, personally reviewed the images and resident's/fellow's findings and agree with the final report.[place] MethodistDNA Ab efzcem9086-61-62 14:55:49 Test Item Value Reference Range Interpretation Comments DNA Ab screen (test code = 1297) Not Detected Not-Detected [place] MethodistHepatic function zmium6824-56-25 07:12:14 Test Item Value Reference Range Interpretation [...] g/dL 1-2 years 5.6-7.5 g/dL>3 years 6.0-8.0 g/mS14-914 6.3-8. 3 g/dL ALT (test code = 1742-6) 20 U/L 5-50 AST (test code = 1920-8) 20 U/L 10-50 Lab Interpretation (test Abnormal code = 07311-6) [place] MethodistImmunoglobulin [id number] 18:32:35 Test Item Value Reference Range Interpretation Comments IgG (test code = 2465-3) 1005 mg/dL 700-1600 [place] MethodistCentromere tpdezjou1684-02-38 18:10:06 Test Item Value Reference Range Interpretation Comments Centromere antibody <0.2 0.0- 0.9 AI (test code = 8068-9) Centromere antibody Negative AI Anti-kyrie tromere interp (test code = antibodi es are found 81363-0) in patients wit h systemic sclero sis (SSc or sclerod obinna), especially for those with limited cu taneous or CREST syndro me. Anti-centromere antibodies may also be found in patien ts with other rheumatic or connective tiss ue diseases. [place] MethodistScl-70 xibrrand2067-35-65 18:10:06 Test Item Value Reference Range Interpretation Comments Scleroderma SCL-70 Ab <0.2 0.0- 0.9 AI (test code = 27379-1) Scl-70 antibody interp Negative AI Anti- Scl-70 (test code = 5268) (topoisom erase I) antibodies are found in patients with s ystemic sclerosis (SSc or scleroderma), a nd have been reported t o be predictive of d iffuse cutaneous invol vement. Anti-Scl-70 ant ibodies may also be pre sent in patients with s ystemic lupus erythemat osus (SLE). [place] MethodistSS-A meezqcsf3023-66-94 18:10:06 Test Item Value Reference Range Interpretation Comments Sjogren's SS-A <0.2 0.0- 0.9 AI antibody (test code = 95227-2) SS-A antibody interp Negative AI SS-A an tibody is (test code = 2235) sensitive for Sjogren's syndrome, but m ay also be positive with s ystemic lupus erythemat osus (SLE), and syst emic sclerosis. [place] MethodistSS-B makxnbqo8838-14-36 18:10:05 Test Item Value Reference Range Interpretation Comments Sjogren's SS-B <0.2 0.0- 0.9 AI antibody (test code = 3001) SS-B antibody interp Negative AI SS-B/La antibody is seen (test code = 2237) in patien ts with Sjogren syndrome, but m ay also be positive with s ystemic lupus erythemat osus (SLE), and syst emic sclerosis. [place] MethodistCT Cardiac Gvprdedd5874-01-15 19:51:26Hm Interface, Radiology Results - 07/06/2019 7:54 [...] characterization with CT of the chest is recommendedSpring[place] MethodistCv cta coronary arteries w contrast and ffr if vxyenu7837-17-50 17:59:00Interface, Radiology Results In - 07/06/2019 5:59 PM CDT Nuclear Cardiology and Cardiac CT [address] [place] [address] CTA Coronary Arteries ReportPat.Name: PAOLA KWONG Pat.ID: [id number] .Date: 07/06/2019 Refer.MD: MILTON ELLINGTON MDExrebeca Time: 1:09:00 PMStudy Type:CTA Coronary Arteries Height: 67in Weight: 212lb BSA: 2.07 m2 Age: 6 1965,53Y Sex: MALE BP: 151/83 HR: 54 bpm Nuclear Tech:Samina Beyer RT(R)(CT)Pat. Stat.:Inpatient Tape Vol: 33.2, CPT - 4: CCTA w Thoracic Aorta (NonCongenital) 97709;45507Moebyih Event ID:[id number] Order ID: [id number] Reason for Study:Pre-Op CABG, CAD History / Clinical:Coronary artery disease, Diabetes, Hyperlipidemia,Hypertension, S/P PCI 07/2007, Liver cirrhosis/Hepatitis CProcedures: CT Prospective(phases)Race: C SUMMARY: Technique: IV contrast was administered and sequential 0.[address] cutswere obtained through the chest using the Siemens Somatom Force CTscanner. Image post-processing consisting of multiplanar and 3Dreconstructions were performed using the TakWakceworkstation. Interactive image viewing, volumetric display andanalysis were [...] refer to the separate radiology report in [facility] for anyaddi tional non-cardiovascular findings. STUDY QUALITYThe study quality is good.COMMENTSNone. FINDINGS: Signed 07/06/2019 05:59 Bethany Olvera MethodistSurgical pathology gcyodmj2344-12-99 13:32:02 Test Item Value Reference Range Interpretation Comments Case number (test code = [id number]) Surgical pathology See link below for report (test code = PDF Lab Report 2256) Result status (test code This is Final Report = [id number]) for [id number] Lefty JohnsonHIV Ag/Ab bbqfuwnvddj6343-92-53 09:39:34 Test Item Value Reference Range Interpretation Comments HIV Ag/Ab combination (test code Non-reactive Non-reactive = 5299) [place] MethodistProthrombin time with JYO5811-02-42 07:38:02 Test Item Value Reference Range Interpretation Comments Prothrombin time (test 14.5 11.5- 14.5 sec code = 5902-2) INR (test code = 1.1 [facility] 78748-9) Normalized Rati o (INR) is a therapeutic m onitoring tool for patien ts who are stable on oral anticoagulant t herapy. An INR of 2.0-3.0 is suggested for d eep vein thrombosis/pulm onary embolism. [place] MethodistC4 complement ebkzzgsjd7558-80-39 07:25:14 Test Item Value Reference Range Interpretation Comments C4 complement (test code = 4498-2) 34 mg/dL 10-40 [place] MethodistC3 complement frouxcjmx6795-11-48 07:25:14 Test Item Value Reference Range Interpretation Comments C3 complement (test code = 4485-9) 133 mg/dL 90-180 [facility] Center[facility]umatoid uzzino7111-94-30 07:25:13 Test Item Value Reference Range Interpretation Comments Rheumatoid factor (test code = 45357-4) <10 0- 13 IU/mL [facility] CenteristTransthoracic Echocardiogram Complete, (w Contrast, Strain and 3D if needed)2019-07-05 10:49:00Interface, Radiology Results In - 07/05/2019 10:49 AM CDT Echocardiography Report [address] [place] [address], [place] [address] Pat.Name: PAOLA KWONG Pat.ID: [id number].Date: 07/05/2019 Refer.MD: MILTON ELLINGTON MDExam Time: 7:54:00 AM Study Type:Routine Echo Height: 67in Weight: 212lb BSA: 2.07 m2 Age: 4 1965,53Y Sex: MALE BP: 157/71 Sonogrphr: Audrey Bella, [facility], RVSPat. Stat.:Inpatient Room: M3A Study Status:Final Echo Event ID:[id number] Order ID: [id number] Reason for Study:Chest pain, suspected cardi ac etiologyHistory / Clinical:Chest Pain, Diabetes, Hyperlipidemia, Hypertension,Cirrhosis, ND, Infectious Viral HepatitisProcedures: 2D Echo, Colorflow DopplerRace: [...] estimate PA systolic pressure. MEASUREMENTS: 2DParasternal Long [place] Ao An 2 cm LVPWd 1.5 cm [...] LVOT SVi 36 ml/m2 Signed 07/05/2019 10:49 [facility] MethodistVancomycin level, zjuklc1403-95-92 06:48:15 Test Item Value Reference Range Interpretation Comments Vancomycin, random (test code = 11.9 ug/mL 91189-9) Lefty JohnsonVENIPUNC NEED PHYS SKILL,DX OR HN4643-88-92 14:59:18SEstela lim RN 07/02/2019 3:03 PMMidlineDate/Time: 07/02/2019 [...] Catheter Length (cm): 10 Catheter Lot Number: [id number] Catheter Expiration Date: 1Procedure Details: Landmarks identified: [...] tolerance of procedure: Tolerated well, no immediate complicationsSpringfield AnabaptistCheshirecomycin level, trough 2019-07-01 15:28:35 Test Item Value Reference Range Interpretation Comments Vancomycin, trough 23.0 ug/mL 10-20 HH Therapeut ic Ranges: (test code = 79308-2) Peak 30.0 - 40.0 ug/mL T rough 10.0 - 20.0 ug/mL Lab Interpretation Abnormal (test code = 63641-2) Lefty Gilmore Transjugular Liver Iunmkf0098-22-07 16:47:45Hm Interface, Radiology Results 06/30/2019 4:50 PM CSTPerforming RadiologistJeveronica Lauren MD AssistantsNone Anesthesia TypeModerate sedation was administered by the procedure nurse and monitored by the procedure physician for a fayo-oz-vajq sedation time of 20 minutes. Lidocaine 1% was usedfor local anesthetic. Pre Procedure Afafrduvf03-meuv-pja man with possible cirrhosis.. Post Procedure DiagnosisStatus [...] for local anesthetic. Using real-time ultrasound guidance, u03-kycua micropuncture needle was used to access the [...] into the inferior vena cava. A long 9-Malagasy vascular sheath was then placed,andadvanced over the guidewire into the right atrium. Right atrial pressure measures were then obtained. A 5-Malagasy multipurpose catheter was advanced over the guidewire and used to select the right hepatic vein. A CO2 right hepatic venogram was performed. Pressure measurements were also obtained in boththe free and wedge positions. The 9-Malagasy vascular sheath was then advanced into the right hepatic vein. The transjugular liver biopsy system was advanced through the 9-Malagasy vascular sheath, and multiple 18-gauge core liver biopsy specimens were obtained and submitted to pathology. The transjugularliver biopsy system and 9-Malagasy vascular sheath were then removed from the [...] hepatic: 11 mmHg Wedge hepatic: 15 mmHg [facility]-[id number] Armandoti smooth muscle Ab uqhnex9387-72-19 14:32:24 Test Item Value Reference Range Interpretation Comments Anti smooth muscle Ab screen Not Detected Not-Detected (test code = 262) Lefty Gilmore Tunneled Dialysis Catheter Wrrwzeyqo7247-14-61 07:28:35Hm Interface, Radiology Results Incoming 06/24/2019 7:31 AM CSTPERFORMING RADIOLOGIST:Will Petersen MD ASSISTANTS:None. ANESTHESIA TYPE:Moderate sedation was administered by the procedure nurse and monitored by the procedure physician for a total ucuc-pi-umnl sedation time of 8 minutes. Lidocaine 1% [...] cavoatrial junction. PLAN:-Catheter is ready for immediate use.[facility]-[id number] MethodistGram remjf0061-43-57 21:21:01Gram stain isolateRare WBC'sMany Gram negative rodsRare Gram positive cocci in pairs Comment: Specimen InformationSpecimen Source: DrainageSpecimen Site: Not otherwise specified [facility] MethodistAnti mitochondria jzpfnh1769-63-99 15:12:05 Test Item Value Reference Range Interpretation Comments Anti mitochondria screen (test Not Detected Not-Detected code = 1686) [facility] TylerXR Abdomen 1 Vw Ngneudob4341-01-89 18:02:41Hm Interface, Radiology Results - 06/21/2019 6:05 PM CSTEXAMINATION: XR ABDOMEN 1 VW PORTABLECLINICAL HISTORY: Abd pain unspecified, BLQ abdominal pain rule out ileus or constipationCOMPARISON: Fluoroscopic images from 05/19/2008IMPRESSION:Artifact overlying the abdomen mildly limits evaluation.No dilated gas-filled loops of large or small bowel are noted. The patient is status post cholecystectomy.The bones of the abdomen and pelvis are unremarkable.The lung bases are clear.[facility] CITYL-[id number] MethodistProtein, urine, fygnjl3357-28-20 20:50:36 Test Item Value Reference Range Interpretation Comments Protein, urine random (test code = 584 mg/dL 2888-6) [facility] TylerCreatinine level, urine, oqyxbn2042-13-78 20:39:45 Test Item Value Reference Range Interpretation Comments Creatinine, urine, random (test code 99 mg/dL = 83065-2) [facility] TylerHepatitis B surface Ab, svrmggupbvwh8941-74-12 18:16:55 Test Item Value Reference Range Interpretation [...] HBs 9.99 IU/L or less .. ..... Gvprjmht09.00 I U/L or greater .... PositiveResults greater than 1,000.00 I U/L are reported as gre ater than 1,000.00 IU/L. This assay should not be u sed for blood donor scr eening, associated re-e ntry protocols, or f or screening Human Cell, Tis sues and Cellular and Ti ssue-Based Products (HCT/P ).Performed by [employer] Steve bustos,[address] [facility], [place] [address] ixc .[employer] , Roberto Almaguer MD, Lab. Director [place] AnabaptistUrine xdsyvex0749-34-53 10:35:14 Test Item Value Reference Range Interpretation Comments Urine culture No growth Specimen isolate (test after 24 InformationSpe ludlow hospitalen code = 21264-4) hours Source: Urin eSpecimen Site: Clean cat [facility] EwtpbssrgYNJ8634-43-02 13:23:19 Test Item Value Reference Range Interpretation Comments ANNE screen (test Negative Negative Test perfor med using NOVA code = 550) Lite DAPI ANNE k it (Indirect Immunofluoresce nce Assay) for Anti-Nuclea r Antibody on DC Devices QUANTA-Ly ser 160 Analyzer. [place] MethodistHepatitis B core antibody yyyhq4341-34-52 08:03:43 Test Item Value Reference Range Interpretation Comments Hepatitis B core total Ab (test Non-reactive Non-reactive code = 08775-8) [place] MethodistHepatitis B core antibody XmN7021-10-15 08:03:43 Test Item Value Reference Range Interpretation Comments Hepatitis B core IgM (test code Non-reactive Non-reactive = 51961-7) [place] MethodistHepatitis A antibody [id number] 08:03:43 Test Item Value Reference Range Interpretation Comments Hepatitis A IgM (test code = Non-reactive Non-reactive 22809-7) [place] MethodistHepatitis C ryqiabbu5250-17-87 08:03:43 Test Item Value Reference Range Interpretation Comments Hepatitis C Ab (test code = Non-reactive Non-reactive 98547-3) [place] MethodistAmmonia ajque6462-07-49 08:01:41 Test Item Value Reference Range Interpretation Comments Ammonia (test code = 1841-6) 63 umol/L 16-60 H Lab Interpretation (test code = Abnormal 68192-1) [place] MethodistHepatitis B surface [id number] 07:28:04 Test Item Value Reference Range Interpretation Comments Hepatitis B surface Ag (test Non-reactive Non-reactive code = 5195-3) [place] MethodistHepatitis B surface [id number] 07:28:04 Test Item Value Reference Range Interpretation Comments Hepatitis B surface Ab (test Non-reactive Non-reactive code = 83814-3) [place] MethodistUrinalysis screen and microscopy, with reflex to culture 2019-06-18 07:26:53 Test Item Value Reference Range Interpretation Comments Specimen site (test code = Clean catch 9116261) Color, UA (test code = 5778-6) Yellow Appearance, UA (test code = Cloudy 5767-9) Specific gravity, UA (test code = 1.011 1.001-1.035 5811-5) pH, UA (test code = 5803-2) 5.0 5.0-8.5 Protein, UA (test code = 00677-3) 3+ Negative A Glucose, UA (test code = 83008-0) 1+ Negative A Ketones, UA (test code = 2514-8) Negative Negative Bilirubin, UA (test code = Negative Negative 5770-3) Blood, UA (test code = 5794-3) Small Negative A Nitrite, UA (test code = 5802-4) Negative Negative Urobilinogen, UA (test code = <2.0 <2.0 00631-8) Leukocyte esterase, UA (test code Negative Negative = 5799-2) WBC, UA (test code = 5821-4) 14 0- 1 /HPF H RBC, UA (test code = 69635-7) 1 0- 5 /HPF Bacteria, UA (test code = Few None seen 45895-1) WBC clumps, UA (test code = Few A 73450-9) Yeast, UA (test code = 79480-0) None seen Yeast with pseudohyphae, UA (test None seen code = 61228-3) Amorphous crystals (test code = Few 90783-2) Granular casts, UA (test code = 1 0- 1 /LPF 5793-5) Lab Interpretation (test code = Abnormal 43357-4) [place] MethodistAlpha [id number] 07:19:58 Test Item Value Reference Range Interpretation Comments Alpha fetoprotein 1.6 ng/mL 0-8.3 The Lexis 8000 AFP (test code = immunoassay was used. 00447-8) Results obtaine d with different assay methods or kits should not be used interchang eably and may be differen tTad Olea MethodistCeruloplasmin [id number] 07:17:32 Test Item Value Reference Range Interpretation Comments Ceruloplasmin (test code = 2064-4) 22 mg/dL 15-30 [facility] [id number] 07:17:31 Test Item Value Reference Range Interpretation Comments GGT (test code = 2324-2) 80 U/L 0-59 H Lab Interpretation (test code = Abnormal 62302-7) [place] MethodistAlpha-1 antitrypsin [id number] 07:17:31 Test Item Value Reference Range Interpretation Comments Alpha-1 antitrypsin (test code = 166 mg/dL 90-200 6771-0) [place] MethodistTissue transglutaminase Ab, [id number] 17:53:26 Test Item Value Reference Range Interpretation Comments Tissue 1 U/mL 0-3 No further sheldon ac transglutaminase Ab, testing to be IgA (test code = 2324) perfo rmed.INTERPRETIV E INFORMATION: Tissue Transglutaminas e (tTG) Antibody, IgA3 U/mL or less: Negative4-10 U/ mL: Weak Fxaggxas61 U/mL or greater: PositivePresenc e of the [...] value for disease.Perform ed by [facility],[address], [place] [address] fbn .[email or web address], Roberto Almaguer MD, Juanita jane. Director BRENT (test code = BRENT) CO2 called with reae back to Yu Kwon/ [facility] at 06/16/2019 08:04 by NEFTALY. [place] MethodistUS Abdomen Reqldemi3618-45-64 16:55:54Hm Interface, Radiology Results Incoming - 06/17/2019 [...] to participate in the care of your patient.[facility]-[id number] MethodistUS Abdominal [id number] 16:52:25Hm Interface, Radiology Results Incoming - 06/17/2019 [...] artery and vein are identified and are patent.[id number] MethodistUS Renal 2019-06-17 14:29:49Hm Interface, Radiology Results 06/17/2019 2:32 PM CSTEXAMINATION: US RENALCLINICAL HISTORY: Flank pain stone disease suspectedCOMPARISON: None.IMPRESSION: The right kidney measures 12cm in length.The left kidney measures 13.9 cm in length.There is no renal mass, stone, cyst, or hydronephrosis. Echogenicity is normal.The urinary bladder is unremarkable.[facility]-[id number] MethodistCeliac disease reflexive cascade 2019-06-17 07:55:20 Test Item Value Reference Range Interpretation Comments IgA (test code = 449 mg/dL 68-408 H Total IgA i s within 2458-8) or higher than established ran ges. Tissue Transglutaminas e, IgA to follow.REFERENC E INTERVAL: Immunoglobulin AAccess complet e set of age- and/or gender-specific reference inter vals for this test i n the [facility] Test Directory ([employer]).P erfor med by [place],[address] [facility], [facility] [address] ggn .[employer], Roberto Almaguer MD, Juanita jane. Director BRENT (test code = BRENT) CO2 called with reae back to Yu Kwon/ [facility] at 06/16/2019 08:04 by JN1. Lab Interpretation Abnormal (test code = 27716-5) [facility] vkitsrgsegcq7541-08-42 13:53:32 Test Item Value Reference Range Interpretation Comments Fecal calprotectin (test code = 57.64 <15.6-120mg/kg 14095-3) [facility] Plummer carotid ygklbw6747-89-25 20:05:00Interface, Radiology Results In - 06/15/2019 8:06 PM [facility] Vascular Ultrasound Laboratory Carotid Artery Duplex [address] [place] [address] For clinical quality assurance associate purposes, the categorization of the degree of the stenosis of this exam is based on criteria described in the IAC carotid stenosis grading white paper( www.intersocietal.org/Vascular) and Thanh Nava., Herbie Fountain, et al. Carotid artery stenosis: wagner-scale and Doppler US diagnosis--Society of Radiologists in Ultrasound Consensus Conference. Radiology. 2003 Nov; 229(2):340-6. Pat.Name: PAOLA KWONG Pat.ID: [id number] St.Date: 06/15/2019 Refer.MD: MILTON ELLINGTON MDExrebeca Time: 11:04:00 AM Study Type:Carotid Height: 67in Weight: 212lb BSA: 2.07 m2 Age: 4 1965,53Y Sex: MALE BP: 116/68 Sonogrphr: Suad Greco RDCS, RVTPat. Stat.:Inpatient Room: [address] Vol: ED, CPT - 4: 48227 Echo Event ID:[id number] Order ID: [id number] Reason for Study:Pre-op evaluation History / Clinical:Smoker, CAD, S/p ND, DM, HTN, HLD, Liver cirrhosis,Chest pain, ObesityProcedures: [...] ICA/CCA PSV 0.564 Sign ed 06/15/2019 08:05 PMZsolt Genevieve MD, [facility] MethodistSpirometry, diffusion, lung vgbgnbm1317-78-33 14:29:17 Test Item Value Reference Range Interpretation [...] Predicted 68.3 % (test code = 5445) [place] MethodistGastrointestinal emfea4639-02-88 13:46:31Gastrointestinal panelNegative for all pathogens tested:Negative for [...] Comment: Specimen InformationSpecimen Source: StoolSpecimen Site: Nonpreserved [facility] MethodistManual jkmtiuuiiejf6966-84-63 08:23:11 Test Item Value Reference Range Interpretation Comments Manual differential (test code = PERFORMED 51660-0) Neutrophils (test code = 53.0 % 39-69 97547-2) Lymphocytes (test code = 36.0 % 25-45 07280-7) Monocytes (test code = 90561-9) 6.0 % 0-10 Eosinophils (test code = 4.0 % 0-5 49762-8) Basophils (test code = 90384-3) 1.0 % 0-1 Metamyelocytes (test code = 0 % 740-1) Promyelocytes (test code = 0 % 783-1) Platelet slide review (test code Rebekah adequate = 62175-8) Anisocytosis (test code = 702-1) Moderate Polychromasia (test code = Moderate 31852-0) Ovalocytes (test code = 774-0) Moderate [place] MethodistHemoglobin [id number] 08:03:34 Test Item Value Reference Range Interpretation Comments Hemoglobin A1C (test 12.6 % 4-5.6 H HbA1c c utoffs for code = 30963-7) diagnosing diabetes:4.0% - 5.6% = normal5.7% - 6.4% = increased risk for diabetes (prediabetes)9> =6.5% = konbgrsq3Bnsq s for glycemic contro l (ADA 2016)< 7.0% Ta rget for non adults with win betes. More or less stringent targe ts may be appropriate for individual virginie ents. <7.5% Target for Children and adolescents wit h type 1 diabetes. Lab Interpretation (test Abnormal code = 02648-6) [place] MethodistT4, [id number] 06:34:11 Test Item Value Reference Range Interpretation Comments T4, free (test code = 3024-7) 0.8 ng/dL 0.9-1.7 L Lab Interpretation (test code = Abnormal 72864-7) [facility] MethodistThyroid stimulating vhtqyoc9556-41-71 06:34:11 Test Item Value Reference Range Interpretation Comments TSH (test code = 3016-3) 1.95 0.27- 4.20 uIU/mL [place] MethodistLipid hxvyh2905-28-01 06:30:05 Test Item Value Reference Interpretation Comments [...] (mg/dL) interpretation (test < 200 code = 06553-6) Desirable 200-239 Borderline -high >=240 Hi gh [...] mg/dL) Lab Interpretation Abnormal (test code = 25871-2) [place] MethodistInfluenza [id number] 00:42:57 Test Item Value Reference Range Interpretation Comments Influenza Negative for Specimen antigen (test Influenza A/B [facility] ecimen code = 66785-4) antigen. Source: [facility] Site: Right [place] MethodistPartial thromboplastin time, wfpxrtdyt4351-90-31 20:31:46 Test Item Value Reference Range Interpretation Comments PTT (test code = 28.1 23.0- 36.0 [place] [address]-0) unfractionated heparin is61.0-112.0 se conds which corresponds to Anti-Xa0.3-0.7 U/ml. [place] MethodistPOCT-GLUCOSE [id number] 12:50:00 Test Item Value Reference Range Interpretation Comments POC-GLUCOSE METER 119 mg/dL 70-110 H TESTED AT [facility] 6720 (BEAKER) (test code = [place] 1538) [address] BASIC METABOLIC [id number] 06:16:00 Test Item Value Reference Range Interpretation [...] PATIEN TS. CBC W/PLT COUNT & AUTO [id number] 05:42:00 Test Item Value Reference Range Interpretation [...] PERCENT (BEAKER) (test code = 2801) POCT-GLUCOSE [id number] 20:34:00 Test Item Value Reference Range Interpretation Comments POC-GLUCOSE METER 205 mg/dL 70-110 H TESTED AT [facility] 67[address] ([facility]) (test code = [place] [address]) [address] [address], CHEST, WITHOUT [id number] 18:24:00FINAL REPORT TECHNIQUE: CT scan of the [...] CT follow-up is necessary. Signed: Elli Sierra Verified Date/Time: 01/10/2019 18:24:57 Reading Location: [address] Body Reading Room POCT-GLUCOSE [id number] 17:31:00 Test Item Value Reference Range Interpretation Comments POC-GLUCOSE METER 183 mg/dL 70-110 H TESTED AT [place] [address] ([facility]) (test code = [place] 1538) [address] CT, BRAIN, WITHOUT [id number] 14:47:00FINAL REPORT CT, BRAIN, WITHOUT CONTRAST INDICATION: [...] Signed: Lubna Lr Verified Date/Time: 01/10/2019 14:47:25 -[id number] 11:36:00 Test Item Value Reference Range Interpretation [...] within 95-100% range.RAD, CHEST, 1 VIEW, NON [id number] 08:17:00Reason for exam:->chest painShould this be performed at the bedside?->YesFINAL REPORT Chest, AP view. History: Chest pain. Comparison: 01/06/2019. Discussion: The cardiomediastinal silhouette and pulmonary vasculature are within normal limits. The lungs are clear without evidence of consolidation or effusion. There are no acute osseous abnormalities. The soft tissues are unremarkable. IMPRESSION: No acute cardiopulmonary abnormality. Signed: Britney Schwab Verified Date/Time: 01/10/2019 08:17:19 Reading Location: [facility] C013X [facility] Consult Reading Room TROPONIN [id number] 07:02:00 Test Item Value Reference Range Interpretation [...] H (test code = 700) BASIC METABOLIC [id number] 06:51:00 Test Item Value Reference Range Interpretation [...] PATIEN TS. CBC W/PLT COUNT & AUTO [id number] 06:27:00 Test Item Value Reference Range Interpretation [...] PERCENT (BEAKER) (test code = 2801) TROPONIN [id number] 23:52:00 Test Item Value Reference Range Interpretation [...] acidosis, acute neurological disease, and persistent tachyarrhythmia.POCT-GLUCOSE [id number] 22:03:00 Test Item Value Reference Range Interpretation Comments POC-GLUCOSE METER 315 mg/dL 70-110 H TESTED AT [place] [address] ([facility]) (test code = [facility] 1538) [address] POCT-GLUCOSE [id number] 20:02:00 Test Item Value Reference Range Interpretation Comments POC-GLUCOSE METER 250 mg/dL 70-110 H TESTED AT [place] [address] ([facility]) (test code = [facility] 1538) [address] TROPONIN [id number] 19:05:00 Test Item Value Reference Range Interpretation Comments TROPONIN I ([facility]) (test code = 0.04 [...] acidosis, acute neurological disease, and persistent tachyarrhythmia.POCT-GLUCOSE [id number] 17:40:00 Test Item Value Reference Range Interpretation Comments POC-GLUCOSE METER 246 mg/dL 70-110 H TESTED AT [place] [address] ([facility]) (test code = [facility] 1538) [address] POCT-GLUCOSE [id number] 08:11:00 Test Item Value Reference Range Interpretation Comments POC-GLUCOSE METER 243 mg/dL 70-110 H TESTED AT [place] [address] ([facility]) (test code = [facility] 1538) [address] BASIC METABOLIC [id number] 05:04:00 Test Item Value Reference Range Interpretation Comments SODIUM ([facility]) 138 meq/L 136-145 (test [...] S NOT APPLICABLE FOR DIALYSIS PATIEN TS. [id number] 04:56:00 Test Item Value Reference Range Interpretation Comments PARTIAL THROMBOPLASTIN TIME 35.0 seconds 22.5-36.0 (BEAKER) (test code = 760) CBC W/PLT COUNT & AUTO [id number] 04:48:00 Test Item Value Reference Range Interpretation [...] PERCENT (BEAKER) (test code = 2801) POCT-GLUCOSE [id number] 22:08:00 Test Item Value Reference Range Interpretation Comments POC-GLUCOSE METER 364 mg/dL 70-110 H Notified R Christy MD/TESTED (BEAKER) (test code = AT [address] 1538) [facility] [address] POCT-GLUCOSE [id number] 17:05:00 Test Item Value Reference Range Interpretation Comments POC-GLUCOSE METER 389 mg/dL 70-110 H Notified R N MD/TESTED (BEAKER) (test code = AT [address] 1538) [facility] 7[address] BASIC METABOLIC [id number] 16:28:00 Test Item Value Reference Range Interpretation Comments SODIUM (BEAKER) 136 meq/L 136-145 (test code = 381) POTASSIUM (BEAKER) 4.7 meq/L 3.5-5.1 (test code = 379) CHLORIDE (BEAKER) 107 meq/L 98-107 (test code = 382) CO2 (BEAKER) (test 23 meq/L - code = 355) BLOOD UREA NITROGEN 35 mg/dL 7-21 H (BEAKER) (test code = 354) CREATININE (BEAKER) 2.22 mg/dL 0.57-1.25 H (test code = 358) GLUCOSE RANDOM 358 mg/dL 70-105 H (MICHELLAKER) (test code = 652) CALCIUM (BEAKER) 8.7 mg/dL 8.4-10.2 (test code = 697) EGFR (BEAKER) (test 31 mL/min/1.73 ESTIMA ESTEE GFR IS code = 1092) sq m NOT ACCURATE CREATININE CLEARANCE IN PREDICTING GLOMERULAR FILTRATION RATE . ESTIMATED GFR I S NOT APPLICABLE FOR DIALYSIS PATIEN TS. PT/[id number] 16:26:00 Test Item Value Reference Range Interpretation Comments PROTIME (CHASITY) (test code = 13.4 seconds 11.9-14.2 759) INR (CHASITY) (test code = 370) 1.1 <=5.9 PARTIAL THROMBOPLASTIN TIME 32.0 seconds 22.5-36.0 (CHASITY) (test code = 760) Effective 09/23/2018: PT Reference Range ChangeNew: 11.9-14.2 Previous: 11.7- 14.7RECOMMENDED COUMADIN/WARFARIN INR THERAPY RANGESSTANDARD DOSE: 2.0-3.0 Includes: PROPHYLAXIS for venous thrombosis, systemic embolization; TREATMENT for venous thrombosis and/or pulmonary embolus.HIGH RISK: Target INR is2.5-3.5 for patients wiht mechanical heart valves.[id number] 16:26:00 Test Item Value Reference Range Interpretation Comments PARTIAL THROMBOPLASTIN TIME 32.0 seconds 22.5-36.0 (CHASITY) (test code = 760) POCT-GLUCOSE [id number] 12:06:00 Test Item Value Reference Range Interpretation Comments POC-GLUCOSE METER 321 mg/dL 70-110 H Notified Rohith Harrison MD/TESTED (CHASITY) (test code = AT [facility] [address] [place] [address]) [facility] 7703 0 POCT-GLUCOSE [id number] 08:29:00 Test Item Value Reference Range Interpretation Comments POC-GLUCOSE METER 263 mg/dL 70-110 H TESTED AT [place] [address] (BEAKER) (test code = [place] 1538) [address] [id number] 04:54:00 Test Item Value Reference Range Interpretation Comments PARTIAL THROMBOPLASTIN TIME 31.0 seconds 22.5-36.0 (BEAKER) (test code = 760) CBC W/PLT COUNT & AUTO [id number] 04:43:00 Test Item Value Reference Range Interpretation [...] (test code = 414) MONOCYTES ABSOLUTE COUNT ([facility]) 0.53 K/ L 0.30-0.82 (test code = 415) EOSINOPHILS ABSOLUTE COUNT 0.20 K/ L 0.04-0.54 ([facility]) (test code = 416) BASOPHILS ABSOLUTE COUNT ([facility]) 0.03 K/ L 0.01-0.08 (test code = 417) IMMATURE GRANULOCYTES-RELATIVE 1 % 0-1 PERCENT ([facility]) (test code = 2801) POCT-GLUCOSE [id number] 22:11:00 Test Item Value Reference Range Interpretation Comments POC-GLUCOSE METER 319 mg/dL 70-110 H Notified R Christy BOSS/TESTED ([facility]) (test code = AT [place] [address]) [facility] 7703 0 [id number] 20:11:00 Test Item Value Reference Range Interpretation Comments PARTIAL THROMBOPLASTIN TIME 33.3 seconds 22.5-36.0 ([facility]) (test code = 760) POCT-GLUCOSE [id number] 18:49:00 Test Item Value Reference Range Interpretation Comments POC-GLUCOSE METER 309 mg/dL 70-110 H TESTED AT [place] [address] ([facility]) (test code = [place] [address]) [address] POCT-GLUCOSE [id number] 14:48:00 Test Item Value Reference Range Interpretation Comments POC-GLUCOSE METER 161 mg/dL 70-110 H TESTED AT [place] [address] ([facility]) (test code = [place] [facility] 1538) [address] POCT-GLUCOSE [id number] 14:46:00 Test Item Value Reference Range Interpretation Comments POC-GLUCOSE METER 159 mg/dL 70-110 H TESTED AT [place] [address] ([facility]) (test code = [place] [address]) [address] TROPONIN [id number] 13:58:00 Test Item Value Reference Range Interpretation Comments TROPONIN I ([facility]) (test code = 397) [...] failure, acidosis, acute neurological disease, and persistent tachyarrhythmia.[id number] 12:25:00 Test Item Value Reference Range Interpretation Comments PARTIAL THROMBOPLASTIN TIME 30.3 seconds 22.5-36.0 ([facility]) (test code = 760) POCT-GLUCOSE [id number] 12:18:00 Test Item Value Reference Range Interpretation Comments POC-GLUCOSE METER 168 mg/dL 70-110 H TESTED AT [place] [address] ([facility]) (test code = [facility] 1538) [address] POCT-GLUCOSE [id number] 11:06:00 Test Item Value Reference Range Interpretation Comments POC-GLUCOSE METER 180 mg/dL 70-110 H TESTED AT [place] [address] ([facility]) (test code = [facility] 1538) [address] POCT-GLUCOSE [id number] 10:21:00 Test Item Value Reference Range Interpretation Comments POC-GLUCOSE METER 195 mg/dL 70-110 H TESTED AT [place] [address] ([facility]) (test code = [facility] 1538) [address] POCT-GLUCOSE [id number] 10:21:00 Test Item Value Reference Range Interpretation Comments POC-GLUCOSE METER 180 mg/dL 70-110 H TESTED AT [place] [address] ([facility]) (test code = [facility] 1538) [address] POCT-GLUCOSE [id number] 08:06:00 Test Item Value Reference Range Interpretation Comments POC-GLUCOSE METER 218 mg/dL 70-110 H TESTED AT [place] [address] ([facility]) (test code = [facility] 1538) [address] TROPONIN [id number] 07:00:00 Test Item Value Reference Range Interpretation Comments TROPONIN I ([facility]) (test code = 0.01 [...] afterwardsOnce on admission and Daily AM afterwardsPOCT-GLUCOSE [id number] 06:58:00 Test Item Value Reference Range Interpretation Comments POC-GLUCOSE METER 248 mg/dL 70-110 H TESTED AT [facility] 6720 (BEAKER) (test code = [place] 1538) [address] [id number] 06:54:00 Test Item Value Reference Range Interpretation Comments PHOSPHORUS (BEAKER) (test code = 2.5 mg/dL 2.3-4.7 604) Once on admission and Daily AM afterwardsOnce on admission and Daily AM afterwardsOnce on admission and Daily AM [id number] 06:54:00 Test Item Value Reference Range Interpretation [...] Daily AM afterwardsCBC W/PLT COUNT & AUTO [id number] 06:42:00 Test Item Value Reference Range Interpretation [...] 417) IMMATURE GRANULOCYTES-RELATIVE 1 % 0-1 PERCENT ([facility]) (test code = 2801) [id number] 06:28:00 Test Item Value Reference Range Interpretation Comments PARTIAL THROMBOPLASTIN TIME 30.6 seconds 22.5-36.0 ([facility]) (test code = 760) POCT-GLUCOSE [id number] 06:01:00 Test Item Value Reference Range Interpretation Comments POC-GLUCOSE METER 266 mg/dL 70-110 H TESTED AT [place] [address] ([facility]) (test code = [place] [facility] 1538) [address] POCT-GLUCOSE [id number] 04:57:00 Test Item Value Reference Range Interpretation Comments POC-GLUCOSE METER 271 mg/dL 70-110 H TESTED AT [place] [address] ([facility]) (test code = [place] [facility] 1538) [address] POCT-GLUCOSE [id number] 04:05:00 Test Item Value Reference Range Interpretation Comments POC-GLUCOSE METER 308 mg/dL 70-110 H Notified Rohith Harrison MD/TESTED ([facility]) (test code = AT [address] 1538) [facility] 7703 0 POCT-GLUCOSE [id number] 02:57:00 Test Item Value Reference Range Interpretation Comments POC-GLUCOSE METER 343 mg/dL 70-110 H Notified Rohith Harrison MD/TESTED ([facility]) (test code = AT [address] 1538) [facility] 7703 0 RAD, CHEST, 1 VIEW, NON [id number] 02:27:00Reason for exam:->mediastinal wideningShould this be performed [...] osseous structures are intact. Signed: Emmanuelle Kline [facility] Verified Date/Time: 01/07/2019 02:27:45 POCT-GLUCOSE [id number] 01:57:00 Test Item Value Reference Range Interpretation Comments POC-GLUCOSE METER 369 mg/dL 70-110 H TESTED AT [place] [address] ([facility]) (test code = [place] [facility] 1538) [address] POCT-GLUCOSE [id number] 01:06:00 Test Item Value Reference Range Interpretation Comments POC-GLUCOSE METER 395 mg/dL 70-110 H Notified R Christy BOSS/TESTED ([facility]) (test code = AT [facility] [address] [place] [address]38) [facility] 7703 0 TROPONIN [id number] 00:36:00 Test Item Value Reference Range Interpretation Comments TROPONIN I ([facility]) (test code = 0.01 [...] Reference Range Interpretation Comments B-TYPE NATRIURETIC PEPTIDE ([facility]) 151 pg/mL 0-100 H (test code = 700) [id number] 00:19:00 Test Item Value Reference Range Interpretation Comments PARTIAL THROMBOPLASTIN TIME 28.2 seconds 22.5-36.0 ([facility]) (test code = 760) Prior to initiating heparinPOCT-GLUCOSE [id number] 00:16:00 Test Item Value Reference Range Interpretation Comments POC-GLUCOSE METER 413 mg/dL 70-110 HH TESTED AT [place] [id number] ([facility]) (test code = [place] [facility] 1538) [address] POCT-GLUCOSE [id number] 23:10:00 Test Item Value Reference Range Interpretation Comments POC-GLUCOSE METER 452 mg/dL 70-110 HH Notified Rohith Harrison MD/TESTED (BEAKER) (test code = AT [facility] [address] [address]) [facility] 7703 0 POCT-GLUCOSE [id number] 22:06:00 Test Item Value Reference Range Interpretation Comments POC-GLUCOSE METER 383 mg/dL 70-110 H TESTED AT [facility] 6720 (BEAKER) (test code = [place] [facility] 1538) [address] CT, BRAIN, WITHOUT [id number] 21:38:00FINAL REPORT CT Head without contrast CLINICAL [...] Kline Verified Date/Time: 01/06/2019 21:38:52 BASI METABOLIC [id number] 21:12:00 Test Item Value Reference Range Interpretation [...] NOT APPLICABLE FOR DIALYSIS PATIEN TS. HEMOGLOBIN [id number] 20:17:00 Test Item Value Reference Range Interpretation Comments HEMOGLOBIN A1C (BEAKER) (test code = 11.9 % 4.3-6.1 H 368) TROPONIN [id number] 19:52:00 Test Item Value Reference Range Interpretation [...] acute neurological disease, and persistent tachyarrhythmia.HEPATIC FUNCTION [id number] 19:46:00 Test Item Value Reference Range Interpretation [...] (test code = 347) hemolyzed Specimen moderately [id number] 19:32:00 Test Item Value Reference Range Interpretation Comments PARTIAL THROMBOPLASTIN TIME 28.1 seconds 22.5-36.0 (BEAKER) (test code = 760) PROTHROMBIN TIME/[id number] 19:31:00 Test Item Value Reference Range Interpretation [...] mechanical heart valves.CBC W/PLT COUNT & AUTO [id number] 19:25:00 Test Item Value Reference Range Interpretation [...] PERCENT (BEAKER) (test code = 2801) POCT-GLUCOSE [id number] 17:51:00 Test Item Value Reference Range Interpretation Comments POC-GLUCOSE METER 342 mg/dL 70-110 H Notified R N MD/TESTED (BEAKER) (test code = AT [facility] [address] [facility] 1466) [place] [address] 0
[2020-04-24 10:56] LABS: Albumin 2.7 g/dL (3.4-5.0); Bilirubin Total 0.3 mg/dL (0.2-1.0); Potassium 4.1 mmol/L (3.5-5.1); Protein, Total 7.1 g/dL (6.4-8.2)
[2020-04-24] MEDS ORDERED: VANCOMYCIN/NS 1 gm 1 GM/250 ML BAG IV ONE (11:00)
[2020-04-24] MEDS ORDERED: PIPER/TAZO/NS 3.375gm 3.375 GM/100 ML BAG ONE (11:03)
--- NOTE | 2020-04-24 11:55 | EDPHYS ---
Physician Documentation [facility] Name: Wero Kwong Age: 54 yrs Sex: Male : 1965 Arrival Date: 04/24/2020 Time: 09:39 Bed 18 Private MD: ED Physician Osito Rehman HPI: 04/24 09:54 This 54 yrs old Male presents to ER via Stretcher with complaints of Wound pm1 Infection. 09:54 The patient presents with cellulitis of the right foot. Description: erythematous. pm1 Onset: The symptoms/episode began/occurred Started April 03 as a blister on lateral aspect of right foot. Seen a [facility] ER on April 12 and for same issue. Prescribed clindamycin on the and completed on 04/22. Sent here to the ER by Dr. Blue for admission to the hospital for failed outpatient abx therapy. Possible cause(s): unknown, Patient with history of poorly controlled DM and peripheral vascular disease. Associated signs and symptoms: Pertinent positives: erythema, Pertinent negatives: fever. Severity of symptoms: in the emergency department the symptoms are actually worse. The patient has been recently seen by a physician: Wound care center and Dr. Blue. Historical: - Allergies: 10:57 Codeine; jl7 10:57 Morphine; jl7 - Home Meds: 10:57 calcium acetate 667 mg Oral cap 1 caps twice a day [Active]; citalopram 20 mg tab 1 tab jl7 once daily [Active]; clonazepam 0.5 mg Oral tab as needed [Active]; gabapentin 300 mg Oral cap 3 caps twice a day [Active]; isosorbide mononitrate 60 mg Oral Tb24 [Active]; levetiracetam 500 mg Oral tab 1 tab 2 times per day [Active]; lisinopril 10 mg Oral tab 1 tab once daily [Active]; methocarbamol 500 mg Oral tab as needed [Active]; metoclopramide HCl 10 mg Oral tab [Active]; Nephro-Steven 0.8 mg Oral tab daily [Active]; Novolog 100 unit/mL Sub-Q soln three times a day [Active]; ondansetron HCl 8 mg Oral tab 1 tab every 8 hours [Active]; pantoprazole 40 mg Oral TbEC 1 tab once daily [Active]; sevelamer carbonate 800 mg Oral tab 1 tab twice a day [Active]; simvastatin 40 mg Oral tab 1 tab once daily [Active]; Toujeo SoloStar 300 unit/mL (1.5 mL) subcutaneous inpn 65 unit daily [Active]; tramadol 50 mg Oral tab 1 tab as needed [Active]; - PMHx: 10:57 CAD; CHF; Cirrhosis; CVA; Diabetes - IDDM; dialysis (); High Cholesterol; jl7 Hypertension; kidney failure; Myocardial infarction; neuropathy; Seizures; - PSHx: 10:57 None; jl7 - Immunization history:: Adult Immunizations unknown. - Social history:: Smoking status: Patient denies any tobacco usage or history of. ROS: 10:59 Constitutional: Negative for fever, chills, and weight loss, Cardiovascular: Negative pm1 for chest pain, palpitations, and edema, Respiratory: Negative for shortness of breath, cough, wheezing, and pleuritic chest pain, Abdomen/GI: Negative for abdominal pain, nausea, vomiting, diarrhea, and constipation, Back: Negative for injury and pain. 10:59 Neuro: Negative for headache, weakness, numbness, tingling, and seizure. 10:59 MS/extremity: Positive for pain, of the right foot. 10:59 Skin: Positive for cellulitis, ulceration, of the right foot. 10:59 Neuro: Negative for altered mental status, headache. Exam: 10:59 Constitutional: This is a well developed, well nourished patient who is awake, alert, pm1 and in no acute distress. Head/Face: Normocephalic, atraumatic. 10:59 Back: No spinal tenderness. No costovertebral tenderness. Full range of motion. 10:59 Cardiovascular: Exam negative for acute changes, Rate: normal, Rhythm: regular, Pulses: no pulse deficits are appreciated, Edema: is not appreciated. 10:59 Respiratory: Exam negative for acute changes, respiratory distress, shortness of breath. 10:59 Abdomen/GI: Inspection: abdomen appears normal, Palpation: abdomen is soft and non-tender, in all quadrants. Vital Signs: 10:00 BP 147 / 94; Pulse 88; Resp 15; Temp 98.5; Pulse Ox 96% ; Weight 99.79 kg; Pain 0/10; jl7 15:00 BP 153 / 80; Pulse 88; Resp 17; Pulse Ox 95% ; jl7 16:00 BP 155 / 82; Pulse 90; Resp 15; Pulse Ox 95% ; jl7 MDM: 09:40 Patient medically screened. pm1 11:51 Data reviewed: vital signs. Counseling: I had a detailed discussion with the patient pm1 and/or guardian regarding: the historical points, exam findings, and any diagnostic results supporting the discharge/admit diagnosis, lab results, radiology results, the need for further work-up and treatment in the hospital, Admission to the hospitalist as requested by Dr. Blue. 12:20 Physician consultation: Josep Rehman MD was called at 12:20, was contacted at 12:20, pm1 regarding admission, patient's condition, and will see patient. 04/24 09:45 Order name: CBC with Diff; Complete Time: 11:21 pm1 04/24 09:45 Order name: CMP; Complete Time: 11:21 pm1 04/24 09:45 Order name: Sed Rate; Complete Time: 11:21 pm1 04/24 09:45 Order name: CRP; Complete Time: 11:21 pm1 04/24 09:45 Order name: Blood Culture Adult (2) pm1 04/24 09:45 Order name: Foot Right 3 View XRAY; Complete Time: 12:16 pm1 04/24 09:45 Order name: IV Saline Lock; Complete Time: 10:26 pm1 04/24 13:25 Order name: CONS Physician Consult EDMS Administered Medications: 10:52 Drug: Zosyn 3.375 grams Route: IVPB; Infused Over: 60 mins; Site: right forearm; jl7 11:52 Follow up: Response: No adverse reaction; IV Status: Completed infusion jl7 12:01 Drug: vancoMYCIN 1 grams Route: IVPB; Infused Over: 2 hrs; Site: right forearm; jl7 14:02 Follow up: Response: No adverse reaction; IV Status: Completed infusion jl7 Disposition: 18:36 Co-signature as Attending Physician, Osito Rehman MD. rn 04/25 07:27 I agree with the assessment and plan of care. Attestation: The patient's history, exam rn findings, diagnostics, and a summary of any interventions or procedures was reviewed in detail with Ross Wilson NP. Disposition: 04/24/20 11:54 Hospitalization ordered by Josep Rehman for Inpatient Admission. Preliminary diagnosis is Cellulitis of right lower limb - Failed outpatient antibiotic therapy. - Bed requested for Telemetry/MedSurg (Inpatient). - Status is Inpatient Admission. jl7 - Condition is Stable. - Problem is new. - Symptoms have improved. Signatures: Dispatcher [employer] EDMS Osito Rehman MD MD rn Ross Wilson, MEDIA RECONCILIATION SPECIALIST MEDIA RECONCILIATION SPECIALIST pm1 Stephen Victor RN RN jl7 Dania Strong Corrections: (The following items were deleted from the chart) 04/24 12:09 11:54 Hospitalization Ordered by Marcelino Stephens MD for Inpatient Admission. Preliminary pm1 diagnosis is Cellulitis of right lower limb - Failed outpatient antibiotic therapy. Bed requested for Telemetry/MedSurg (Inpatient). Status is Inpatient Admission. Condition is Stable. Problem is new. Symptoms have improved. pm1 16:07 12:09 04/24/2020 11:54 Hospitalization Ordered by Josep Rehman MD for Inpatient eb Admission. Preliminary diagnosis is Cellulitis of right lower limb - Failed outpatient antibiotic therapy. Bed requested for Telemetry/MedSurg (Inpatient). Status is Inpatient Admission. Condition is Stable. Problem is new. Symptoms have improved. pm1 16:07 16:07 04/24/2020 11:54 Hospitalization Ordered by Josep Rehman MD for Inpatient eb Admission. Preliminary diagnosis is Cellulitis of right lower limb - Failed outpatient antibiotic therapy. Bed requested for Telemetry/MedSurg (Inpatient). Status is Inpatient Admission. Condition is Stable. Problem is new. Symptoms have improved. eb 16:47 16:07 04/24/2020 11:54 Hospitalization Ordered by Josep Rehman MD for Inpatient jl7 Admission. Preliminary diagnosis is Cellulitis of right lower limb - Failed outpatient antibiotic therapy. Bed requested for Telemetry/MedSurg (Inpatient). Status is Inpatient Admission. Condition is Stable. Problem is new. Symptoms have improved. eb
--- NOTE | 2020-04-24 11:55 | ER ---
Nurse's Notes [facility] Name: Wero Kwong Age: 54 yrs Sex: Male : 1965 Arrival Date: 04/24/2020 Time: 09:39 Bed 18 Private MD: Diagnosis: Cellulitis of right lower limb-Failed outpatient antibiotic therapy Presentation: 04/24 09:41 Chief complaint: was sent by Dr. barboza for wound infection on right foot, needs iw admission and IV abx , also states he has been not been acting like himself over past two days, is more weak than usual, was unable to transfer himself out of his wheelchair. Ebola Screen: Patient negative for fever greater than or equal to 101.5 degrees Fahrenheit, and additional compatible Ebola Virus Disease symptoms Patient denies exposure to infectious person. Patient denies travel to an Ebola-affected area in the 21 days before illness onset. No symptoms or risks identified at this time. Risk Assessment: Do you want to hurt yourself or someone else? Patient reports no desire to harm self or others. 09:41 Method Of Arrival: Stretcher iw 09:41 Acuity: [place] 3 iw 10:00 Coronavirus screen: Client denies travel out of the [place] in the last 14 days. At this jl7 time, the client does not indicate any symptoms associated with coronavirus-19. 10:00 Initial Sepsis Screen: Does the patient meet any 2 criteria? No. Patient's initial jl7 sepsis screen is negative. Does the patient have a suspected source of infection? No. Patient's initial sepsis screen is negative. Onset of symptoms is unknown. Care prior to arrival: None. Transition of care: patient was received from another setting of care (ambulatory specialty care practice), Wound Care. Historical: - Allergies: 10:57 Codeine; jl7 10:57 Morphine; jl7 - Home Meds: 10:57 calcium acetate 667 mg Oral cap 1 caps twice a day [Active]; citalopram 20 mg tab 1 tab jl7 once daily [Active]; clonazepam 0.5 mg Oral tab as needed [Active]; gabapentin 300 mg Oral cap 3 caps twice a day [Active]; isosorbide mononitrate 60 mg Oral Tb24 [Active]; levetiracetam 500 mg Oral tab 1 tab 2 times per day [Active]; lisinopril 10 mg Oral tab 1 tab once daily [Active]; methocarbamol 500 mg Oral tab as needed [Active]; metoclopramide HCl 10 mg Oral tab [Active]; Nephro-Steven 0.8 mg Oral tab daily [Active]; Novolog 100 unit/mL Sub-Q soln three times a day [Active]; ondansetron HCl 8 mg Oral tab 1 tab every 8 hours [Active]; pantoprazole 40 mg Oral TbEC 1 tab once daily [Active]; sevelamer carbonate 800 mg Oral tab 1 tab twice a day [Active]; simvastatin 40 mg Oral tab 1 tab once daily [Active]; Toujeo SoloStar 300 unit/mL (1.5 mL) subcutaneous inpn 65 unit daily [Active]; tramadol 50 mg Oral tab 1 tab as needed [Active]; - PMHx: 10:57 CAD; CHF; Cirrhosis; CVA; Diabetes - IDDM; dialysis (); High Cholesterol; jl7 Hypertension; kidney failure; Myocardial infarction; neuropathy; Seizures; - PSHx: 10:57 None; jl7 - Immunization history:: Adult Immunizations unknown. - Social history:: Smoking status: Patient denies any tobacco usage or history of. Screenin:00 Abuse screen: Denies threats or abuse. Denies injuries from another. Nutritional jl7 screening: No deficits noted. Tuberculosis screening: No symptoms or risk factors identified. Fall Risk IV access (20 points). Assessment: 12:00 General: Appears in no apparent distress. uncomfortable, Behavior is cooperative, jl7 drowsy. Pain: Denies pain. Neuro: Level of Consciousness is obeys commands, lethargic, Oriented to person, place, time, situation. Cardiovascular: Patient's skin is warm and dry. Respiratory: Airway is patent Respiratory effort is even, unlabored, Respiratory pattern is regular, symmetrical. Derm: Skin is pink, warm \T\ dry. 13:00 Reassessment: Patient appears in no apparent distress at this time. No changes from jl7 previously documented assessment. Patient and/or family updated on plan of care and expected duration. Pain level reassessed. 13:30 Reassessment: Pt oriented, drowsy, responds easily to verbal stimuli then appears to jl7 fell right back asleep with snoring respirations, pt oriented x 4, ERP aware. 14:00 Reassessment: Patient appears in no apparent distress at this time. No changes from 7 previously documented assessment. Patient and/or family updated on plan of care and expected duration. Pain level reassessed. 15:00 Reassessment: Patient appears in no apparent distress at this time. No changes from 7 previously documented assessment. Patient and/or family updated on plan of care and expected duration. Pain level reassessed. Vital Signs: 10:00 BP 147 / 94; Pulse 88; Resp 15; Temp 98.5; Pulse Ox 96% ; Weight 99.79 kg; Pain 0/10; jl7 15:00 BP 153 / 80; Pulse 88; Resp 17; Pulse Ox 95% ; jl7 16:00 BP 155 / 82; Pulse 90; Resp 15; Pulse Ox 95% ; jl7 ED Course: 09:39 Patient arrived in ED. iw 09:40 Ross Wilson NP is PHCP. pm1 09:40 Osito Rehman MD is Attending Physician. pm1 09:43 Triage completed. iw 09:43 Arm band placed on. iw 10:00 Patient has correct armband on for positive identification. Bed in low position. Call [facility] light in reach. Side rails up X 1. Side rails up X2. Pulse ox on. NIBP on. 10:15 Initial lab(s) drawn, by wa, sent to lab. First set of blood cultures drawn by wa. 3 Inserted saline lock: 20 gauge in right wrist, using aseptic technique. Blood collected. 10:21 Second set of blood cultures drawn by wa. 3 10:46 Stephen Victor, HAYLEE is Primary Nurse. jl7 11:54 Marcelino Stephens MD is Hospitalizing Provider. pm1 12:07 Foot Right 3 View XRAY In Process Unspecified. EDMS 12:09 Josep Rehman MD is Hospitalizing Provider. pm1 16:43 No provider procedures requiring assistance completed. Patient admitted, IV remains in jl7 place. intact, No redness/swelling at site. Administered Medications: 10:52 Drug: Zosyn 3.375 grams Route: IVPB; Infused Over: 60 mins; Site: right forearm; jl7 11:52 Follow up: Response: No adverse reaction; IV Status: Completed infusion jl7 12:01 Drug: vancoMYCIN 1 grams Route: IVPB; Infused Over: 2 hrs; Site: right forearm; jl7 14:02 Follow up: Response: No adverse reaction; IV Status: Completed infusion jl7 Outcome: 11:54 Decision to Hospitalize by Provider. pm1 16:43 Admitted to Tele accompanied by eber, via stretcher, room 212, with chart, Report jl7 called to HAYLEE Gaitan 16:43 Condition: stable 16:43 Discharge instructions given to patient, family, Instructed on the need for admit, Demonstrated understanding of instructions. 16:47 Patient left the ED. jl7 Signatures: Dispatcher [employer] EDAgata Garsia RN RN iw Ross Wilson, SHIP CAPTAIN SHIP CAPTAIN pm1 Stephen Victor RN RN jl7 Khushboo Garcia 3 Corrections: (The following items were deleted from the chart) 09:44 09:41 Chief complaint: was sent by Dr. barboza for wound infection on right foot, needs iw admission and IV abx iw
--- NOTE | 2020-04-24 12:13 | RAD REPORT ---
EXAM DESCRIPTION: RAD - Foot Right 3 View - 04/24/2020 12:07 pm CLINICAL HISTORY: PAIN COMPARISON: Foot Right 3 View dated 04/22/2020; Foot Right 3 View dated 04/19/2020 FINDINGS: Heavy vascular calcification is noted. Soft tissue swelling is seen about the foot with fo warren soft tissue defect along the lateral plantar aspect of the foot. No soft tissue gas is seen. No u nderlying evidence of osteomyelitis.
--- NOTE | 2020-04-24 13:31 | P.HP ---
Certification for Inpatient Patient admitted to: Inpatient With expected LOS: >2 Midnights Practitioner: I am a practitioner with admitting privileges, knowledge of patient current condition, hospital course, and medical plan of care. Services: Services provided to patient in accordance with Admission requirements found in Title 42 Section 412.3 of the Code of Federal Regulations Patient History Date of Service: 04/24/20 Reason for admission: R foot cellulitis, diabetic foot ulcer History of Present Illness: 54yo male, PMH: CAD s/p stent, DM2, Vasc Dz, ESRD-HD (T-T-S) who was advised to present to ED due to R foot cellulitis and diabetic ulcer has failed outpatient management with clindamycin. Patient has been following with the wound clinic with Dr. Blue. Patient's at the time of my interview, states he feels fine and wants to be discharged home. Workup in ED notable for CRP: 85, no leukocytosis, elevated creatinine of 5.69 Patient states this foot ulcer began earlier this month and has only gotten worse. He currently denies any pain due to ulcer. He does report having Bad neuropathy". He denies shortness of breath, denies chest pain/chest pressure, no abdominal pain. He states he was otherwise in his usual state of health and has been feeling well except for this foot infection. Allergies morphine Allergy (Verified 03/13/18 00:11) Hives/Rash Home Medications: Aspirin Chewable [Aspirin Chewable*] 81 mg PO DAILY 04/24/20 Atenolol [Tenormin] 50 mg PO BEDTIME 04/24/20 Atorvastatin Calcium [Lipitor] 40 mg PO BEDTIME 04/24/20 Bacillus Coagulans/Vitamin D3 [Probiotic 2 Billion Gummies] 2 tab PO DAILY 04/24/20 Calcium Acetate 1 tab PO TIDWM 04/24/20 Citalopram Hydrobromide [Citalopram HBr] 20 mg PO DAILY 04/24/20 Folic Acid/Vitamin B Comp W-C [Nephro-Steven Tablet] 1 tab PO DAILY 04/24/20 Gabapentin 2 tab PO BEDTIME 04/24/20 Gabapentin 3 tab PO DAILY 04/24/20 Hydrocodone Bit/Acetaminophen [Hydrocodon-Acetaminophen 5-325] 1 tab PO TIDP PRN 04/24/20 Insulin Aspart [Novolog] 1 unit SQ SEECOM 04/24/20 Insulin Glargine,Hum.rec.anlog [Joanne Herrera] 85 units SQ DAILY 04/24/20 Levetiracetam [Keppra] 250 mg PO BID 04/24/20 Liraglutide [Victoza 2-Willy] 1.8 mg SQ DAILY 04/24/20 Lisinopril [Zestril] 10 mg PO DAILY 04/24/20 Metoclopramide HCl [Reglan] 10 mg PO SEECOM 04/24/20 Pantoprazole [Protonix Tab*] 40 mg PO DAILY 04/24/20 Sevelamer Carbonate 800 mg PO TIDWM 04/24/20 clindamycin HCL [Clindamycin HCl] 300 mg PO QID 04/24/20 clonazePAM [Klonopin*] 0.5 mg PO PRN 04/24/20 - Past Medical/Surgical History Diabetic: Yes -: History CVA -: Liver cirrhosis with history hepatitis A -: CAD -: Diabetes mellitus type 2, insulin dependent -: CAD with prior [place] -: Diabetic neuropathy, retinopathy -: CHF -: Hyperlipidemia -: seizures -: Cardiac stents -: left acl repair -: Cholecystectomy Psychosocial/ Personal History: Patient lives at home and is . He has no children. - Family History Mother -: Heart disease, Hypertension - Social History Smoking Status: Current every day smoker Alcohol use: No CD- Drugs: No Caffeine use: Yes Place of Residence: Home Review of Systems 10-point ROS is otherwise unremarkable Physical Examination - Physical Exam General: Alert, In no apparent distress HEENT: Sclerae nonicteric Respiratory: Clear to auscultation bilaterally, Normal air movement Cardiovascular: Regular rate/rhythm Gastrointestinal: Soft and benign, Non-distended, No tenderness Integumentary: Other (RLE: R lateral plantar foot: ~[id number] ulceration with black eschar, unstageable. with surrounding erythema and swelling. no obvious abscess) Neurological: Normal speech - Studies Laboratory Data (last 24 hrs) 04/24/20 10:15: Sodium 139, Potassium 4.1, BUN 45 H, Creatinine 5.69 H*, Glucose 223 H, Total Bilirubin 0.3, AST 30, ALT 40, Alkaline Phosphatase 161 H 04/24/20 10:15: WBC 8.9, Hgb 11.0 L, Hct 31.7 L, Plt Count 163 Assessment and Plan - Advance Directives Does patient have a Living Will: Yes Does patient have a Durable POA for Healthcare: No Physician Review Additional Text: Right diabetic foot ulcer with cellulitis, failed outpatient therapy CAD s/p stents Liver cirrhosis with history of hepatitis-C ESRD on HD History of CVA (denies residual deficits) Insulin-dependent DM 2, with neuropathy and retinopathy CHF, unknown type admit for IV antibiotics, no obvious abscess, Vanc with dialysis cultures obtained in ED x-ray in ED without signs of osteo Dr. Blue consulted for diabetic ulcer, will discuss if need for MRI arterial dopplers ordered to eval vascular supply does not appear septic nephrology consulted for HD pt unaware of medications he takes, need to confirm home medications and restart Code: full Dispo: anticipate hospitalization >48hrs Time Spent Managing Pts Care (In Minutes): 60
[2020-04-24] MEDS ORDERED: ACETAMINOPHEN 500 MG TAB PO PRN (17:04)
[2020-04-24] MEDS: INSULIN -REGULAR HUMAN 50 UNIT/0.5 ML ML SQ SCH ×2 (17:04→21:07)
[2020-04-24 17:21] VITALS: BMI 34.3
[2020-04-24] MEDS: HEPARIN 5000 UNIT/ML 1 ML VIAL SQ SCH (17:48)
[2020-04-24] MEDS ORDERED: VANCOMYCIN/NS 1 gm 1 GM/250 ML BAG IVPB ONE (18:00)
[2020-04-24] MEDS: HYDROCODONE/APAP 7.5/325 MG TAB PO PRN (18:23)
--- NOTE | 2020-04-24 21:08 | RAD REPORT ---
EXAM DESCRIPTION: US - Lower Extremity Arterial Bilat - 04/24/2020 8:58 pm CLINICAL HISTORY: diabetic ulcer, peripheral vascular disease, leg pain COMPARISON: None. TECHNIQUE: Bilateral brachial artery pressure measurements were obtained. Waveforms were obtained al william the length of each lower extremity. Ankle pressure measurements were obtained with index values c alculated. Visual inspection of the lower extremity arterial tree performed. FINDINGS: Brachials artery pressure measurements are mildly asymmetric, measuring greater on the rig ht. CAMILO values measure 1.11 on the right and 1.12 on the left. Toe index values are 1.13 on the right and 0.99 on the left. Triphasic to biphasic waveforms are seen in the right common femoral, superficial femoral and poplite al arteries. Monophasic waveforms are seen at the right dorsalis pedis and posterior tibial arteries. The left leg shows a triphasic waveform pattern from groin to ankle. No occlusion or focal flow rest ricting lesion identified. IMPRESSION: Lower extremity peripheral arterial disease is present right greater than left. Findings are relatively mild with no occlusion or focal flow restricting lesion identified.
[2020-04-25] MEDS: HYDROCODONE/APAP 7.5/325 MG TAB PO PRN ×4 (00:32→20:53)
[2020-04-25] MEDS: HEPARIN 5000 UNIT/ML 1 ML VIAL SQ SCH ×3 (00:32→17:00)
[2020-04-25 05:51] LABS: Absolute Lymphocytes (CBC) 2.2 K/uL (0.7-4.9); Basophils % 0.9 % (0-1.3); Hematocrit 28.8 % (39.6-49.0); Lymphocytes % 26.2 % (15.3-44.8); MPV 10.9 fL (7.6-11.3); RBC Red Blood Cell Count 2.98 M/uL (4.33-5.43)
[2020-04-25 05:58] LABS: Protime INR 1.03
[2020-04-25 06:04] LABS: Albumin 2.5 g/dL (3.4-5.0); Bilirubin Total 0.4 mg/dL (0.2-1.0); Magnesium 2.2 mg/dL (1.8-2.4); Potassium 4.2 mmol/L (3.5-5.1); Protein, Total 6.5 g/dL (6.4-8.2)
[2020-04-25] MEDS: INSULIN -REGULAR HUMAN 50 UNIT/0.5 ML ML SQ SCH ×4 (07:30→22:18)
[2020-04-25] MEDS: NICOTINE 21 MG/PAT TD SCH (09:35)
--- NOTE | 2020-04-25 12:12 | P.CNS ---
Date of Consult: 04/25/20 Reason for Consult: cellulitis right foot Chief Complaint: R foot cellulitis, diabetic foot ulcer Allergies morphine Allergy (Verified 03/13/18 00:11) Hives/Rash Home Medications: Aspirin Chewable [Aspirin Chewable*] 81 mg PO DAILY 04/24/20 Atenolol [Tenormin] 50 mg PO BEDTIME 04/24/20 Atorvastatin Calcium [Lipitor] 40 mg PO BEDTIME 04/24/20 Bacillus Coagulans/Vitamin D3 [Probiotic 2 Billion Gummies] 2 tab PO DAILY 04/24/20 Calcium Acetate 1 tab PO TIDWM 04/24/20 Citalopram Hydrobromide [Citalopram HBr] 20 mg PO DAILY 04/24/20 Folic Acid/Vitamin B Comp W-C [Nephro-Steven Tablet] 1 tab PO DAILY 04/24/20 Gabapentin 2 tab PO BEDTIME 04/24/20 Gabapentin 3 tab PO DAILY 04/24/20 Hydrocodone Bit/Acetaminophen [Hydrocodon-Acetaminophen 5-325] 1 tab PO TIDP PRN 04/24/20 Insulin Aspart [Novolog] 1 unit SQ SEECOM 04/24/20 Insulin Glargine,Hum.rec.anlog [Toujeo Solostar] 85 units SQ DAILY 04/24/20 Levetiracetam [Keppra] 250 mg PO BID 04/24/20 Liraglutide [Victoza 2-Willy] 1.8 mg SQ DAILY 04/24/20 Lisinopril [Zestril] 10 mg PO DAILY 04/24/20 Metoclopramide HCl [Reglan] 10 mg PO SEECOM 04/24/20 Pantoprazole [Protonix Tab*] 40 mg PO DAILY 04/24/20 Sevelamer Carbonate 800 mg PO TIDWM 04/24/20 clindamycin HCL [Clindamycin HCl] 300 mg PO QID 04/24/20 clonazePAM [Klonopin*] 0.5 mg PO PRN 04/24/20 Isosorbide Mononitrate [Isosorbide Mononitrate ER] 60 mg PO DAILY 04/25/20 - Past Medical/Surgical History Diabetic: Yes -: History CVA -: Liver cirrhosis with history hepatitis A -: CAD -: Diabetes mellitus type 2, insulin dependent -: CAD with prior CT -: Diabetic neuropathy, retinopathy -: CHF -: Hyperlipidemia -: seizures -: Cardiac stents -: left acl repair -: Cholecystectomy Psychosocial/ Personal History: Patient lives at home and is . He has no children. - Family History Mother Medical History: Heart disease, Hypertension - Social History Smoking Status: Current some day smoker Alcohol use: No CD- Drugs: No Caffeine use: Yes Place of Residence: Home Review of Systems 10-point ROS is otherwise unremarkable Physical Examination Temp Pulse Resp BP Pulse Ox 97.6 F 85 19 157/82 H 93 04/25/20 08:00 04/25/20 08:00 04/25/20 09:34 04/25/20 08:00 04/25/20 09:34 General: Alert, In no apparent distress, Oriented x3 Cardiovascular: No edema, Abnormal pulses Capillary refill: <2 Seconds Musculoskeletal: No clubbing, No swelling, No contractures, No erythema, No tenderness, No warmth Integumentary: Diabetic ulcer (ulceration plantar right foot wound with dry eschar, reduced periwound erythema, no drainage. Erythema dorsal right foot is reduced compared to visit in wound care yesterday) Neurological: Abnormal sensation - Problems (1) Type 2 diabetes mellitus with foot ulcer Current Visit: Yes Status: Acute (2) Diabetes Current Visit: No Status: Chronic Qualifiers: Conclusions/Impression: Patient able to be discharged to home after dialysis on po antibiotics Medihoney to right foot wound daily Patient to follow up in Wound Care 05/01/20
[2020-04-25] MEDS ORDERED: EPOETIN 4,000 UNIT/ML VIAL IV SCH (12:30)
--- NOTE | 2020-04-25 12:36 | P.CNS ---
Date of Consult: 04/25/20 Reason for Consult: ESRD , fluid and electrolytes management Chief Complaint: R foot cellulitis, diabetic foot ulcer History of Present Illness: 54yo male, PMH of ESRD on HD TTSat , CAD s/p stent, DM2, CHF and Hep C who was advised to present to ED due to Rt foot cellulitis and diabetic ulcer has failed outpatient management with clindamycin. pt admitted for further imaging evaluation and IV Abx Review of Systems: Head and Neck: No red eye. No ear pain. GI: No nausea, no vomiting. : No polyuria, no dysuria, no hematuria. [employer] Player: Not applicable. Respiratory: No shortness of breath. Cardiovascular: No chest pain. Endocrine: No polydipsia. Skin: No rash. Neuro: Has neuropathy. Musculoskeletal: rt foot pain Physical exam general: AAOX3, NAD , obese Neck; Supple, No elevated JVD hear: RRR, normal S1,2 no murmur or rub Chest: CTAB, no rlaes or wheezes Abdomen: Soft , Nt Extremities No edema, foot dressing End-stage renal disease on HD TTast HD as per schedule renal dose meds Anemia of chronic disease Cont epogen HTN Controlled DM as per PCP DM foot ulcer Cont Abx and wound care scheduled for surgery today total time spent 45min Allergies morphine Allergy (Verified 03/13/18 00:11) Hives/Rash Home Medications: Aspirin Chewable [Aspirin Chewable*] 81 mg PO DAILY 04/24/20 Atenolol [Tenormin] 50 mg PO BEDTIME 04/24/20 Atorvastatin Calcium [Lipitor] 40 mg PO BEDTIME 04/24/20 Bacillus Coagulans/Vitamin D3 [Probiotic 2 Billion Gummies] 2 tab PO DAILY 04/24/20 Calcium Acetate 1 tab PO TIDWM 04/24/20 Citalopram Hydrobromide [Citalopram HBr] 20 mg PO DAILY 04/24/20 Folic Acid/Vitamin B Comp W-C [Nephro-Steven Tablet] 1 tab PO DAILY 04/24/20 Gabapentin 2 tab PO BEDTIME 04/24/20 Gabapentin 3 tab PO DAILY 04/24/20 Hydrocodone Bit/Acetaminophen [Hydrocodon-Acetaminophen 5-325] 1 tab PO TIDP PRN 04/24/20 Insulin Aspart [Novolog] 1 unit SQ SEECOM 04/24/20 Insulin Glargine,Hum.rec.anlog [Joanne Herrera] 85 units SQ DAILY 04/24/20 Levetiracetam [Keppra] 250 mg PO BID 04/24/20 Liraglutide [Victoza 2-Willy] 1.8 mg SQ DAILY 04/24/20 Lisinopril [Zestril] 10 mg PO DAILY 04/24/20 Metoclopramide HCl [Reglan] 10 mg PO SEECOM 04/24/20 Pantoprazole [Protonix Tab*] 40 mg PO DAILY 04/24/20 Sevelamer Carbonate 800 mg PO TIDWM 04/24/20 clindamycin HCL [Clindamycin HCl] 300 mg PO QID 04/24/20 clonazePAM [Klonopin*] 0.5 mg PO PRN 04/24/20 Isosorbide Mononitrate [Isosorbide Mononitrate ER] 60 mg PO DAILY 04/25/20 - Past Medical/Surgical History Diabetic: Yes -: History CVA -: Liver cirrhosis with history hepatitis A -: CAD -: Diabetes mellitus type 2, insulin dependent -: CAD with prior [place] -: Diabetic neuropathy, retinopathy -: CHF -: Hyperlipidemia -: seizures -: Cardiac stents -: left acl repair -: Cholecystectomy Psychosocial/ Personal History: Patient lives at home and is . He has no children. - Family History Mother Medical History: Heart disease, Hypertension - Social History Smoking Status: Current some day smoker Alcohol use: No CD- Drugs: No Caffeine use: Yes Place of Residence: Home Physical Examination Temp Pulse Resp BP Pulse Ox 97.6 F 85 18 157/82 H 94 04/25/20 08:00 04/25/20 08:00 04/25/20 10:34 04/25/20 08:00 04/25/20 10:34
[2020-04-25] MEDS ORDERED: VANCOMYCIN/NS 1 gm 1 GM/250 ML BAG IVPB SCH ×2 (12:45→17:00)
--- NOTE | 2020-04-25 19:06 | P.PN ---
Subjective Date of Service: 04/25/20 Chief Complaint: R foot cellulitis, diabetic foot ulcer Patient appeared to be drowsy today. Physical Examination - Vital Signs Temperature: 97.6 F Blood Pressure: 188/95 Pulse: 84 Respirations: 19 Pulse Ox (%): 96 - Physical Exam General: In no apparent distress, Other (Drowsy but easily arousable) Neck: Supple, JVD not distended Respiratory: Clear to auscultation bilaterally, Normal air movement Cardiovascular: No edema, Regular rate/rhythm, Normal S1 S2 Gastrointestinal: Normal bowel sounds, Soft and benign, Non-distended Musculoskeletal: No swelling Integumentary: Diabetic ulcer (Plantar aspect of right sukumar, dark discoloration at ulcer base) Neurological: Other (Nonfocal) Assessment And Plan - Current Problems (Diagnosis) (1) End stage renal disease on dialysis Current Visit: Yes Status: Acute (2) Type 2 diabetes mellitus with foot ulcer Current Visit: Yes Status: Acute (3) Liver cirrhosis Onset Date: 03/13/18 Current Visit: No Status: Chronic Qualifiers: Hepatic cirrhosis type: unspecified hepatic cirrhosis Ascites presence: without ascites Qualified Code(s): K74.60 - Unspecified cirrhosis of liver Physician Review Additional Text: Right diabetic foot ulcer with cellulitis, failed outpatient therapy CAD s/p stents Liver cirrhosis with history of hepatitis-C ESRD on HD History of CVA (denies residual deficits) Insulin-dependent DM 2, with neuropathy and retinopathy CHF, unknown type Okay to discharge per Dr. Blue. Will check ammonia level given his drowsiness. Continue IV antibiotics. Vanc with dialysis Follow cultures. x-ray in ED without signs of osteo Hemodialysis per nephrology.
[2020-04-25] MEDS ORDERED: HYDROMORPHONE HCL 0.5 MG/0.5 ML INJ IV ONE (21:25)
[2020-04-26] MEDS: HEPARIN 5000 UNIT/ML 1 ML VIAL SQ SCH ×2 (01:57→08:14)
[2020-04-26] MEDS: HYDROCODONE/APAP 7.5/325 MG TAB PO PRN ×2 (02:13→08:13)
[2020-04-26 06:03] LABS: Absolute Lymphocytes (CBC) 2.3 K/uL (0.7-4.9); Basophils % 1.9 % (0-1.3); Hematocrit 29.9 % (39.6-49.0); Lymphocytes % 29.1 % (15.3-44.8); MPV 11.1 fL (7.6-11.3); RBC Red Blood Cell Count 3.07 M/uL (4.33-5.43)
[2020-04-26 06:15] LABS: Potassium 3.8 mmol/L (3.5-5.1)
[2020-04-26] MEDS: INSULIN -REGULAR HUMAN 50 UNIT/0.5 ML ML SQ SCH (07:30)
[2020-04-26] MEDS: NICOTINE 21 MG/PAT TD SCH (08:13)
[2020-04-26] MEDS ORDERED: MEDIHONEY 44 ML TOPICAL TUBE TOP SCH (09:00)
[2020-04-26 09:06] VITALS: BP 168/85; TEMP 97.1
--- NOTE | 2020-04-26 10:04 | P.DS ---
Admission Date: 04/24/20 Discharge Date: 04/26/20 Disposition: ROUTINE DISCHARGE Discharge Condition: FAIR Reason for Admission: R foot cellulitis, diabetic foot ulcer - Problems (1) End stage renal disease on dialysis Status: Acute (2) Type 2 diabetes mellitus with foot ulcer Status: Acute (3) Liver cirrhosis Onset Date: 03/13/18 Status: Chronic Qualifiers: Hepatic cirrhosis type: unspecified hepatic cirrhosis Ascites presence: without ascites Qualified Code(s): K74.60 - Unspecified cirrhosis of liver Brief History of Present Illness: 54-year-old gentleman with a history of end-stage renal disease on hemodialysis, liver cirrhosis, diabetes mellitus type 2, was referred to the emergency department by his collections attorney Dr. Blue for a non healing infected right foot diabetic ulcer that had failed outpatient antibiotic treatment with clindamycin. Patient had no leukocytosis, denied any pain. There was a concern for cellulitis. X-ray of the foot done in the emergency department shows no evidence of osteomyelitis. Patient was started on antibiotics and admitted for further management. Hospital Course: Patient admitted to the medical floor and treated with IV vancomycin. Patient was seen and evaluated by Dr. Blue who recommended no further and surgical intervention. Patient underwent routine hemodialysis. Patient had a brief episode of drowsiness. His ammonia level was low and there was low suspicion for hepatic encephalopathy. Today patient is fully awake, has no complain and desires to go home. Patient is deemed stable for discharge per Dr. Blue. He is discharged with oral doxycycline. Wound care has been prescribed by Dr. Blue. Patient would also followed with wound Care Clinic for further wound care. Vital Signs/Physical Exam: Temp Pulse Resp BP Pulse Ox 97.1 F 72 18 168/85 H 92 04/26/20 08:00 04/26/20 08:00 04/26/20 08:00 04/26/20 08:00 04/26/20 08:00 General: Alert, In no apparent distress, Oriented x3 Respiratory: Clear to auscultation bilaterally, Normal air movement Cardiovascular: No edema, Regular rate/rhythm, Normal S1 S2 Gastrointestinal: Soft and benign, No tenderness Musculoskeletal: No erythema, Swelling (Mild right foot edema.) Integumentary: No rashes Neurological: Normal speech, Normal strength at 5/5 x4 extr Laboratory Data at Discharge: WBC 7.8 K/uL (4.3-10.9) 04/26/20 05:29 Hgb 10.1 g/dL (13.6-17.9) L 04/26/20 05:29 Hct 29.9 % (39.6-49.0) L 04/26/20 05:29 Plt Count 170 K/uL (152-406) 04/26/20 05:29 PT 12.1 SECONDS (9.5-12.5) 04/25/20 05:12 INR 1.03 04/25/20 05:12 Sodium 140 mmol/L (136-145) 04/26/20 05:29 Potassium 3.8 mmol/L (3.5-5.1) 04/26/20 05:29 BUN 35 mg/dL (7-18) H 04/26/20 05:29 Creatinine 4.33 mg/dL (0.55-1.3) H D 04/26/20 05:29 Glucose 195 mg/dL (74-106) H 04/26/20 05:29 Phosphorus 5.0 mg/dL (2.5-4.9) H 04/25/20 05:12 Magnesium 2.2 mg/dL (1.8-2.4) D 04/25/20 05:12 Total Bilirubin 0.4 mg/dL (0.2-1.0) 04/25/20 05:12 AST 32 U/L (15-37) 04/25/20 05:12 ALT 38 U/L (12-78) 04/25/20 05:12 Alkaline Phosphatase 158 U/L (45-117) H 04/25/20 05:12 Troponin I < 0.02 ng/mL (0.0-0.045) 04/25/20 13:00 Home Medications: Aspirin Chewable [Aspirin Chewable*] 81 mg PO DAILY 04/24/20 Atenolol [Tenormin] 50 mg PO BEDTIME 04/24/20 Atorvastatin Calcium [Lipitor] 40 mg PO BEDTIME 04/24/20 Bacillus Coagulans/Vitamin D3 [Probiotic 2 Billion Gummies] 2 tab PO DAILY 04/24/20 Calcium Acetate 1 tab PO TIDWM 04/24/20 Citalopram Hydrobromide [Citalopram HBr] 20 mg PO DAILY 04/24/20 Folic Acid/Vitamin B Comp W-C [Nephro-Steven Tablet] 1 tab PO DAILY 04/24/20 Gabapentin 2 tab PO BEDTIME 04/24/20 Gabapentin 3 tab PO DAILY 04/24/20 Hydrocodone Bit/Acetaminophen [Hydrocodon-Acetaminophen 5-325] 1 tab PO TIDP PRN 04/24/20 Insulin Aspart [Novolog] 1 unit SQ SEECOM 04/24/20 Insulin Glargine,Hum.rec.anlog [Toujeo Solostar] 85 units SQ DAILY 04/24/20 Levetiracetam [Keppra] 250 mg PO BID 04/24/20 Liraglutide [Victoza 2-Willy] 1.8 mg SQ DAILY 04/24/20 Lisinopril [Zestril] 10 mg PO DAILY 04/24/20 Metoclopramide HCl [Reglan] 10 mg PO SEECOM 04/24/20 Pantoprazole [Protonix Tab*] 40 mg PO DAILY 04/24/20 Sevelamer Carbonate 800 mg PO TIDWM 04/24/20 clonazePAM [Klonopin*] 0.5 mg PO PRN 04/24/20 Isosorbide Mononitrate [Isosorbide Mononitrate ER] 60 mg PO DAILY 04/25/20 Collagenase [Santyl Ointment] 1 appl TOP DAILY #1 tube 04/26/20 Doxycycline Hyclate [Vibramycin] 100 mg PO BID #7 capsule 04/26/20 Epoetin [Retacrit] 4,000 unit IV EVERY HD vial 04/26/20 Heparin [Heparin 1,000 units/mL *] 6,000 unit IV EVERY HD PRN vial 04/26/20 Medihoney [Medihoney Woundcare Gel*] 1 appl TOP DAILY #1 tube 04/26/20 New Medications: Medihoney [Medihoney Woundcare Gel*] 1 appl TOP DAILY #1 tube Collagenase [Santyl Ointment] 1 appl TOP DAILY #1 tube Doxycycline Hyclate [Vibramycin] 100 mg PO BID #7 capsule Patient Discharge Instructions: Follow up in Wound Care clinic on 05/01/2020. Diet: ADA Activity: Fall precautions Followup: Unknown,U [Primary Care Provider] - Desmond Blue JR, DPM [ASSOCIATE-ACTIVE - CAN ADMIT] - (within 2 weeks) Time spent managing pt's care (in minutes): 42
[2020-04-26 10:52] VITALS: O2SAT 97
--- NOTE | 2020-04-28 16:17 | EKG ---
Test Date: 2020-04-25 Test Time: 14:21:38 [employer] Pulver[employer] Operator: JESUS MEASUREMENT RESULTS: Intervals: Rate: 81 MS: 150 QRSD: 142 QT: 410 QTc: 476 [place]: P: 37 MS: 150 QRS: 84 T: 11 INTERPRETIVE STATEMENTS: Normal sinus rhythm Right bundle branch block T wave abnormality, consider lateral ischemia Abnormal ECG Compared to ECG 03/24/2020 12:54:24 T-wave abnormality now present Possible ischemia now present Electronically Signed On 04-28-20 16:10:19 MEDICAL SPECIALIST by Zion Colon
[2020-04-30 20:45] LABS: HBsAG Nonreactive (Nonreactive)
== END 2020-04-26 12:07 | disposition home health service (06) | DRG 638 ==
LOC: ER 09:39 → ERHOLD 13:23 → 2ND 16:38
PROVIDERS: ADMIT Hospitalist; ATTEND Internal Medicine
PROC: 5A1D70Z Performance of Urinary Filtration, Intermittent, Less than 6 Hours Per Day (ICD-10-PCS; principal; 2020-04-25)
DX: E11.628 Type 2 diabetes mellitus with other skin complications (principal); L03.115 Cellulitis of right lower limb; I13.2 Hypertensive heart and chronic kidney disease with heart failure and with stage 5 chronic kidney disease, or end stage renal disease; N18.6 End stage renal disease; I50.9 Heart failure, unspecified; E11.22 Type 2 diabetes mellitus with diabetic chronic kidney disease; E11.40 Type 2 diabetes mellitus with diabetic neuropathy, unspecified; E11.319 Type 2 diabetes mellitus with unspecified diabetic retinopathy without macular edema; E11.621 Type 2 diabetes mellitus with foot ulcer; L97.519 Non-pressure chronic ulcer of other part of right foot with unspecified severity; K74.60 Unspecified cirrhosis of liver; I25.10 Atherosclerotic heart disease of native coronary artery without angina pectoris; F17.200 Nicotine dependence, unspecified, uncomplicated; E78.5 Hyperlipidemia, unspecified; I25.2 Old myocardial infarction; Z88.5 Allergy status to narcotic agent; Z79.4 Long term (current) use of insulin; Z79.899 Other long term (current) drug therapy; Z90.49 Acquired absence of other specified parts of digestive tract; Z86.73 Personal history of transient ischemic attack (TIA), and cerebral infarction without residual deficits; Z79.82 Long term (current) use of aspirin; Z99.2 Dependence on renal dialysis; Z20.828 Contact with and (suspected) exposure to other viral communicable diseases
CPT/HCPCS: 36415; 80048; 80053; 82140; 82947; 83735; 84100; 84484; 85025; 85610; 85652; 86140; 86317; 87040; 87340; 90935; 93005; 93925; 94760; 96365; 96366; 96367; 97161; 97530; 99204; 99283; 99285; J1170; J1644; J2543; J3370; U0002

== ENCOUNTER 2020-08-03 10:18 | Inpatient (IN) | payer MEDICARE, OTHER ==
--- OUTSIDE RECORDS SUMMARY | 2020-08-03 10:21 | XMS REPORT | Continuity of Care Document ---
:1965 Author Organization [facility] t Address [address] [place] [address] Care Team Providers Name Role Phone Attar Primary Care Physician Lab, Fam Pob I Attending Clinician Unavailable Elieser BOSS T Attending Clinician TU Attending Clinician Unavailable CHANDANA Attending Clinician Unavailable NOBLE RODRIGUES Attending Clinician Unavailable CHANDANA Admitting Clinician Unavailable NOBLE RODRIGUES Admitting Clinician Unavailable Problems Condition Condition Condition Status Onset Resolution Last Treating Co mments Source Name Details Category Date Date Treatment Clinician Date Subdural Subdural Disease [facility] due to due to 00:00: Medical concussion concussion 00 Ce nter , with , with loss of loss of consciousn consciousn ess, ess, subsequent subsequent encounter encounter Unstable Unstable Disease [facility] - 00:00: Medical 00 [place] Hyperglyce Hyperglyce Disease Active [facility] [...] kidney 00:00: Medical disease) disease) 00 Center Allergies, Adverse Reactions, Alerts Allergy Allergy Status Severity Reaction(s) Onset Inactive Treating Comm ents Source Name Type Date Date Clinician Codeine Drug Active [facility] Also [facility] Allergy 01-06 gives him [facility] - 00:00: headaches Medical 00 [place] Hydrocod Propensi Active [facility] one-Acet ty to 01-06 [facility] - aminophe adverse 00:00: Medical n reaction [address] [place] [address] s Morphine Propensi Active [facility] ty to 01-06 [facility] - adverse 00:00: Medical reaction 00 [place] s Family History Family Member Diagnosis Comments Start Date Stop Date Source Natural father No Known Problem [facility] Natural mother Heart disease [facility] Natural mother Hypertension [facility] Social History Social Habit Start Date Stop Date Quantity Comments Source History [facility] - Alcohol Std Drinks Medica l Center History [facility] - Alcohol Binge Medical Aydee ter Sex Assigned At [facility] Cigarettes smoked 2019-01-06 2019-01-[address] [facility] - current (pack per 00:00:00 00:00:00 Medical Center day) - Reported Tobacco use and 2019-01-06 2019-01-06 Never used [facility] k[facility] - exposure 00:00:00 00:00:00 [facility] Alcohol intake 2019-01-06 2019-01-06 Current [facility] Doris es - 00:00:00 00:00:00 non-drinker of Medical Ce nter alcohol (finding) History [facility] 2019-01-06 2019-01-[address] [facility] - Alcohol Frequency 00:00:00 00:00:00 [facility] Tobacco Comment 2019-01-06 2019-01-06 smokes [address] [facility] - 00:00:00 00:00:00 day, started Medical [facility] er again 3 years ago Smoking Status Start Date Stop Date Source Current every day smoker 2019-01-06 00:00:00 [facility] Medications Ordered Filled Start Stop Current Ordering Indication Dosage Frequency Signature Comments Components Source Medication Medication Date Date Medication? Clinician (SIG) Name Name metoprolol Yes 50mg QD Take 1 [facility] (TOPROL-XL) 9-17 tablet (50 [facility]es - 50 MG 24 hr 00:00: mg total) M edical tablet 00 by mouth Center daily. aspirin 81 Yes 81mg QD Take [address] MG chewable 9-16 by mouth Luke s - tablet 17:13: daily. [address] citalopram Yes 20mg QD Take [address] (CELEXA) 20 9-16 by mouth Luke s - MG tablet 17:13: daily. [address] gabapentin Yes 300mg QD Take [address] (NEURONTIN) 9-16 mg by [facility] - 300 MG 17:13: mouth Medical capsule 05 daily. [place] clopidogrel Yes 75mg QD Take [address] (PLAVIX) 75 9-16 by mouth Luke s - mg tablet 17:13: daily. [address] simvastatin Yes 80mg QD Take [address] (ZOCOR) 80 9-16 by mouth [facility] - MG tablet 17:13: daily. [address] spironolact Yes 25mg QD Take [address] one 9-16 by mouth [facility] - (ALDACTONE) 17:13: daily. Medi warren [address] [place] [address] tablet levETIRAcet Yes 500mg QD Take [address] am (KEPPRA) 9-16 mg by [facility] - 500 MG 17:13: mouth Medical tablet 05 daily. [place] insulin Yes 80U Inject 80 [facility] 70/30, 9-16 Units [facility] - insulin 17:13: subcutaneo Medi warren NPH-insulin 05 usly 2 [place] regular, (two) (HUMULIN times 70/30) 100 daily unit/mL before (70-30) meals. injection travoprost Yes 1[drp] QD Place [address] (TRAVATAN 9-16 drop into [facility] - Z) 0.004 % 17:13: both eyes Me dical Drop 05 nightly. Center ophthalmic drops furosemide Yes 20mg QD Take [...] Cente r mouth 2 (two) times daily. Procedures This patient has no known procedures. Plan of Care Planned Activity Planned Date Details Comments Source Future Scheduled 2020-04-[address] [facility] - Test 00:00:00 (12+) [code = Medical Center DEPRESSION SCREENING (12+)] Future Scheduled 2019-12-28 INFLUENZA VACCINE (#1) [facility] - Test 00:00:00 [code = INFLUENZA Medical Ce nter VACCINE (#1)] Future Scheduled 2019-04-[address] [facility] - Test 00:00:00 measurement Medical Center (procedure) [code = 17509769] Future Scheduled 2017-07-30 SHINGLES VACCINES ([address] [facility] - Test 00:00:00 of 2) [code = SHINGLES Medic al Center VACCINES (1 of 2)] Future Scheduled 2002-07-[address] [facility] - Test 00:00:00 (procedure) [code = Medical Center [id number]] Future Scheduled 1986-07-30 DTAP/TDAP/TD VACCINES [facility] - Test 00:00:00 (1 - Tdap) [code = Medical C enter DTAP/TDAP/TD VACCINES (1 - Tdap)] Future Scheduled 1985-07-30 HEPATITIS C SCREENING [facility] - Test 00:00:00 [code = HEPATITIS C Medical Center SCREENING] Future Scheduled 1977-07-[address] E[address] EXAM [facility] - Test 00:00:00 [code = DIABETIC EYE Medical Center EXAM] Future Scheduled 1977-07-[address] [facility] - Test 00:00:00 examination Medical Center (regime/therapy) [code = 385450415] Future Scheduled 1977-07-30 Urine screening for [facility] - Test 00:00:00 protein (procedure) Medical Center [code = 095462031] Future Scheduled 1973-07-[address] [facility] - Test 00:00:00 0-64 YRS (1 of 1 - Medical C enter PPSV23) [code = PNEUMOCOCCAL VACCINE 0-64 YRS (1 of 1 - PPSV23)] Future Scheduled [address] [facility] - Test 00:00:00 malignant neoplasm of Medica Center colon (procedure) [code = 159171577] Encounters Start End Encounter Admission Attending Care Care Encounter Source Date/Time Date/Time Type Type Clinicians Facility Department ID 2020-07-29 2020-07-29 Laboratory Lab, [facility] [id number] 15:56:54 16:16:54 Only Fam Pob I Health [id number] Kathleen [id number] Professio [phone] nal 044 Office Building One 2020-07-19 2020-07-19 [facility] [id number] 2022 09:40:22 10:10:22 Visit Lynsey Wang [id number] Chuck [id number] Professio [phone] nal 085 [facility] 2019-12-28 2019-12-28 Emergency TU, [facility] [id number] [place] [place] 00:00:00 00:00:[address] 2019-06-12 2019-07-16 Inpatient [facility] [id number] [place] [place] 00:00:00 00:00:00 [place] [address] Results Test Description Test Time Test Comments Results Result Comments Source POCT-GLUCOSE METER 2019-01-11 12:50:00 Test Item Value Reference Range Interpretation Comme nts POC-GLUCOSE METER (BEAKER) (test 119 mg/dL 70-110 H TESTED AT [facility] 7703 0 BASIC METABOLIC [id number] 06:16:00 Test Item Value Reference Range Interpretation [...] PATIEN TS. CBC W/PLT COUNT & AUTO [id number] 05:42:00 Test Item Value Reference Range Interpretation [...] PERCENT (BEAKER) (test code = 2801) POCT-GLUCOSE [id number] 20:34:00 Test Item Value Reference Range Interpretation Comments POC-GLUCOSE METER 205 mg/dL 70-110 H TESTED AT [facility] 6720 (BEAKER) (test code = [place] [facility] 1538) [address] CT, CHEST, WITHOUT [id number] 18:24:00FINAL REPORT TECHNIQUE: CT scan of the [...] MDReport Verified Date/Time: 01/10/2019 18:24:57 Reading Location: [address] Body Reading Room POCT-GLUCOSE [id number] 17:31:00 Test Item Value Reference Range Interpretation Comments POC-GLUCOSE METER 183 mg/dL 70-110 H TESTED AT [place] [address] ([facility]) (test code = [place] [facility] 1538) [address] CT, BRAIN, WITHOUT [id number] 14:47:00FINAL REPORT CT, BRAIN, WITHOUT CONTRAST INDICATION: [...] is recommended for further thierry acterization. Signed: Manny Lr Verified Date/Time: 01/10/2019 14:47:25 -[id number] 11:36:00 Test Item Value Reference Range Interpretation Comments D-DIMER QUANTITATIVE (MICHELLAKER) 2.14 MG/L FEU <0.50 H (test code [...] within 95-100% range.RAD, CHEST, 1 VIEW, NON [id number] 08:17:00Reason for exam:->chest painShould this be performed [...] Schwab Verified Date/Time: 01/10/2019 08:17:19 Reading Location: [facility] C013X Ortho Consult Reading Room TROPONI [id number] 07:02:00 Test Item Value Reference Range Interpretation Comments TROPONIN I (MICHELLAKER) (test code = 0.02 ng/mL 0.00-0.03 397) [...] H (test code = 700) BASIC METABOLIC [id number] 06:51:00 Test Item Value Reference Range Interpretation [...] PATIEN TS. CBC W/PLT COUNT & AUTO [id number] 06:27:00 Test Item Value Reference Range Interpretation [...] PERCENT (BEAKER) (test code = 2801) TROPONIN [id number] 23:52:00 Test Item Value Reference Range Interpretation [...] acidosis, acute neurological disease, and persistent tachyarrhythmia.POCT-GLUCOSE [id number] 22:03:00 Test Item Value Reference Range Interpretation Comments POC-GLUCOSE METER 315 mg/dL 70-110 H TESTED AT [place] [address] ([facility]) (test code = [place] 1538) [address] POCT-GLUCOSE [id number] 20:02:00 Test Item Value Reference Range Interpretation Comments POC-GLUCOSE METER 250 mg/dL 70-110 H TESTED AT [place] [address] ([facility]) (test code = [facility] Rohith [place] 1538) [address] TROPONIN [id number] 19:05:00 Test Item Value Reference Range Interpretation Comments TROPONIN I ([facility]) (test code = 0.04 ng/mL 0.00-0.03 H [...] acidosis, acute neurological disease, and persistent tachyarrhythmia.POCT-GLUCOSE [id number] 17:40:00 Test Item Value Reference Range Interpretation Comments POC-GLUCOSE METER 246 mg/dL 70-110 H TESTED AT [place] [address] ([facility]) (test code = [facility] Rohith [facility] 1538) [address] POCT-GLUCOSE [id number] 08:11:00 Test Item Value Reference Range Interpretation Comments POC-GLUCOSE METER 243 mg/dL 70-110 H TESTED AT [place] [address] ([facility]) (test code = [facility] Rohith [facility] 1538) [address] BASIC METABOLIC [id number] 05:04:00 Test Item Value Reference Range Interpretation [...] S NOT APPLICABLE FOR DIALYSIS PATIEN TS. [id number] 04:56:00 Test Item Value Reference Range Interpretation Comments PARTIAL THROMBOPLASTIN TIME 35.0 seconds 22.5-36.0 (BEAKER) (test code = 760) CBC W/PLT COUNT & AUTO [id number] 04:48:00 Test Item Value Reference Range Interpretation [...] PERCENT (BEAKER) (test code = 2801) POCT-GLUCOSE [id number] 22:08:00 Test Item Value Reference Range Interpretation Comments POC-GLUCOSE METER 364 mg/dL 70-110 H Notified R Christy MD/TESTED (BEAKER) (test code = AT [place] [address] [place] 1538) [place] [address] 0 POCT-GLUCOSE [id number] 17:05:00 Test Item Value Reference Range Interpretation Comments POC-GLUCOSE METER 389 mg/dL 70-110 H Notified R Christy BOSS/TESTED (BEAKER) (test code = AT [place] 869168) [place] [address] 0 BASIC METABOLIC [id number] 16:28:00 Test Item Value Reference Range Interpretation [...] 358) GLUCOSE RANDOM 358 mg/dL 70-105 H (CHASITY) (test code = 652) CALCIUM (BEAKER) 8.7 mg/dL 8.4-10.2 (test code = 697) EGFR (BEAKER) (test 31 mL/min/1.73 ESTIMA ESTEE GFR IS code = 1092) sq m NOT ACCURATE CREATININE CLEARANCE IN PREDICTING GLOMERULAR FILTRATION RATE . ESTIMATED GFR I S NOT APPLICABLE FOR DIALYSIS PATIEN TS. [id number] 16:26:00 Test Item Value Reference Range Interpretation Comments PROTIME (CHASITY) (test code = 13.4 seconds 11.9-14.2 759) INR (BEJENY) (test code = 370) 1.1 <=5.9 PARTIAL THROMBOPLASTIN TIME 32.0 seconds 22.5-36.0 (CHASITY) (test code = 760) Effective 09/23/2018: PT Reference Range ChangeNew: 11.9-14.2 Previous: 11.7- 14.7RECOMMENDED COUMADIN/WARFARIN INR THERAPY RANGESSTANDARD DOSE: 2.0-3.0 Includes: PROPHYLAXIS for venous thrombosis, systemic embolization; TREATMENT for venous thrombosis and/or pulmonary embolus.HIGH RISK: Target INR is2.5-3.5 for patients wiht mechanical heart valves.[id number] 16:26:00 Test Item Value Reference Range Interpretation Comments PARTIAL THROMBOPLASTIN TIME 32.0 seconds 22.5-36.0 (CHASITY) (test code = 760) POCT-GLUCOSE [id number] 12:06:00 Test Item Value Reference Range Interpretation Comments POC-GLUCOSE METER 321 mg/dL 70-110 H Notified R Christy BOSS/TESTED (CHASITY) (test code = AT [facility] 67[address] [place] 1538) [facility] 7703 0 POCT-GLUCOSE [id number] 08:29:00 Test Item Value Reference Range Interpretation Comments POC-GLUCOSE METER 263 mg/dL 70-110 H TESTED AT [facility] 6720 (CHASITY) (test code = [place] [facility] 1538) [address] [id number] 04:54:00 Test Item Value Reference Range Interpretation Comments PARTIAL THROMBOPLASTIN TIME 31.0 seconds 22.5-36.0 (CHASITY) (test code = 760) CBC W/PLT COUNT & AUTO [id number] 04:43:00 Test Item Value Reference Range Interpretation [...] 417) IMMATURE GRANULOCYTES-RELATIVE 1 % 0-1 PERCENT ([facility]) (test code = 2801) POCT-GLUCOSE [id number] 22:11:00 Test Item Value Reference Range Interpretation Comments POC-GLUCOSE METER 319 mg/dL 70-110 H Notified R Christy BOSS/TESTED ([facility]) (test code = AT [facility] [address] [place] [address] 1538) [facility] 7703 0 [id number] 20:11:00 Test Item Value Reference Range Interpretation Comments PARTIAL THROMBOPLASTIN TIME 33.3 seconds 22.5-36.0 ([facility]) (test code = 760) POCT-GLUCOSE [id number] 18:49:00 Test Item Value Reference Range Interpretation Comments POC-GLUCOSE METER 309 mg/dL 70-110 H TESTED AT [place] [address] ([facility]) (test code = [place] [facility] 1538) [address] POCT-GLUCOSE [id number] 14:48:00 Test Item Value Reference Range Interpretation Comments POC-GLUCOSE METER 161 mg/dL 70-110 H TESTED AT [place] [address] ([facility]) (test code = [place] [facility] 1538) [address] POCT-GLUCOSE [id number] 14:46:00 Test Item Value Reference Range Interpretation Comments POC-GLUCOSE METER 159 mg/dL 70-110 H TESTED AT [place] [address] ([facility]) (test code = [place] [facility] 1538) [address] TROPONIN [id number] 13:58:00 Test Item Value Reference Range Interpretation [...] failure, acidosis, acute neurological disease, and persistent tachyarrhythmia.[id number] 12:25:00 Test Item Value Reference Range Interpretation Comments PARTIAL THROMBOPLASTIN TIME 30.3 seconds 22.5-36.0 ([facility]) (test code = 760) POCT-GLUCOSE [id number] 12:18:00 Test Item Value Reference Range Interpretation Comments POC-GLUCOSE METER 168 mg/dL 70-110 H TESTED AT [place] [address] ([facility]) (test code = [facility] 1538) [address] POCT-GLUCOSE [id number] 11:06:00 Test Item Value Reference Range Interpretation Comments POC-GLUCOSE METER 180 mg/dL 70-110 H TESTED AT [place] [address] ([facility]) (test code = [facility] 1538) [address] POCT-GLUCOSE [id number] 10:21:00 Test Item Value Reference Range Interpretation Comments POC-GLUCOSE METER 195 mg/dL 70-110 H TESTED AT [place] [address] ([facility]) (test code = [facility] 1538) [address] POCT-GLUCOSE [id number] 10:21:00 Test Item Value Reference Range Interpretation Comments POC-GLUCOSE METER 180 mg/dL 70-110 H TESTED AT [place] [address] ([facility]) (test code = [facility] 1538) [address] POCT-GLUCOSE [id number] 08:06:00 Test Item Value Reference Range Interpretation Comments POC-GLUCOSE METER 218 mg/dL 70-110 H TESTED AT [place] [address] ([facility]) (test code = [facility] 1538) [address] TROPONIN [id number] 07:00:00 Test Item Value Reference Range Interpretation [...] afterwardsOnce on admission and Daily AM afterwardsPOCT-GLUCOSE [id number] 06:58:00 Test Item Value Reference Range Interpretation Comments POC-GLUCOSE METER 248 mg/dL 70-110 H TESTED AT [facility] 6720 (BEAKER) (test code = [place] 1538) [address] [id number] 06:54:00 Test Item Value Reference Range Interpretation Comments PHOSPHORUS (BEAKER) (test code = 2.5 mg/dL 2.3-4.7 604) Once on admission and Daily AM afterwardsOnce on admission and Daily AM afterwardsOnce on admission and Daily AM [id number] 06:54:00 Test Item Value Reference Range Interpretation Comments MAGNESIUM (BEAKER) (test code = 2.2 mg/dL 1.6-2.6 627) Once on admission and Daily AM afterwardsOnce on admission and Daily AM afterwardsOnce on admission and Daily AM afterwardsBASI METABOLIC PANEL 2019-01-07 06:54:00 Test Item Value [...] Daily AM afterwardsCBC W/PLT COUNT & AUTO [id number] 06:42:00 Test Item Value Reference Range Interpretation [...] 0-1 PERCENT (BEAKER) (test code = 2801) [id number] 06:28:00 Test Item Value Reference Range Interpretation Comments PARTIAL THROMBOPLASTIN TIME 30.6 seconds 22.5-36.0 ([facility]) (test code = 760) POCT-GLUCOSE [id number] 06:01:00 Test Item Value Reference Range Interpretation Comments POC-GLUCOSE METER 266 mg/dL 70-110 H TESTED AT [facility] 6720 ([facility]) (test code = [place] [facility] 1538) [address] POCT-GLUCOSE [id number] 04:57:00 Test Item Value Reference Range Interpretation Comments POC-GLUCOSE METER 271 mg/dL 70-110 H TESTED AT [place] [address] ([facility]) (test code = [place] [facility] 1538) [address] POCT-GLUCOSE [id number] 04:05:00 Test Item Value Reference Range Interpretation Comments POC-GLUCOSE METER 308 mg/dL 70-110 H Notified R Christy BOSS/TESTED ([facility]) (test code = AT [address] 1538) [facility] 7703 0 POCT-GLUCOSE [id number] 02:57:00 Test Item Value Reference Range Interpretation Comments POC-GLUCOSE METER 343 mg/dL 70-110 H Notified R Christy MD/TESTED ([facility]) (test code = AT [address] 1538) [facility] 7703 0 RAD, CHEST, 1 VIEW, NON [id number] 02:27:00Reason for exam:->mediastinal wideningShould this be performed [...] Wilmer Kline Verified Date/Time: 01/07/2019 02:27:45 POCT-GLUCOSE [id number] 01:57:00 Test Item Value Reference Range Interpretation Comments POC-GLUCOSE METER 369 mg/dL 70-110 H TESTED AT [place] [address] ([facility]) (test code = [place] [facility] 1538) [address] POCT-GLUCOSE [id number] 01:06:00 Test Item Value Reference Range Interpretation Comments POC-GLUCOSE METER 395 mg/dL 70-110 H Notified Rohith Harrison MD/TESTED ([facility]) (test code = AT [place] [address] [place] [facility]8) [facility] 7703 0 TROPONIN [id number] 00:36:00 Test Item Value Reference Range Interpretation [...] pg/mL 0-100 H (test code = 700) [id number] 00:19:00 Test Item Value Reference Range Interpretation Comments PARTIAL THROMBOPLASTIN TIME 28.2 seconds 22.5-36.0 ([facility]) (test code = 760) Prior to initiating heparinPOCT-GLUCOSE [id number] 00:16:00 Test Item Value Reference Range Interpretation Comments POC-GLUCOSE METER 413 mg/dL 70-110 HH TESTED AT [place] [address] ([facility]) (test code = [place] [facility] 1538) [address] POCT-GLUCOSE [id number] 23:10:00 Test Item Value Reference Range Interpretation Comments POC-GLUCOSE METER 452 mg/dL 70-110 HH Notified Rohith Harrison MD/TESTED ([facility]) (test code = AT [place] [address] [place] [facility]) [facility] 7703 0 POCT-GLUCOSE [id number] 22:06:00 Test Item Value Reference Range Interpretation Comments POC-GLUCOSE METER 383 mg/dL 70-110 H TESTED AT [facility] 6720 (BEAKER) (test code = [place] 2789) [address] CT, BRAIN, WITHOUT [id number] 21:38:00FINAL REPORT CT Head without contrast CLINICAL [...] at time of dictation. Signed: Wilmer Kline [facility] Verified Date/Time: 01/06/2019 21:38:52 [facility] METABOLIC [id number] 21:12:00 Test Item Value Reference Range Interpretation [...] NOT APPLICABLE FOR DIALYSIS PATIEN TS. HEMOGLOBIN [id number] 20:17:00 Test Item Value Reference Range Interpretation Comments HEMOGLOBIN A1C (BEAKER) (test code = 11.9 % 4.3-6.1 H 368) TROPONIN [id number] 19:52:00 Test Item Value Reference Range Interpretation [...] acute neurological disease, and persistent tachyarrhythmia.HEPATIC FUNCTION [id number] 19:46:00 Test Item Value Reference Range Interpretation [...] (test code = 347) hemolyzed Specimen moderately [id number] 19:32:00 Test Item Value Reference Range Interpretation Comments PARTIAL THROMBOPLASTIN TIME 28.1 seconds 22.5-36.0 (BEAKER) (test code = 760) PROTHROMBIN [id number] 19:31:00 Test Item Value Reference Range Interpretation [...] mechanical heart valves.CBC W/PLT COUNT & AUTO [id number] 19:25:00 Test Item Value Reference Range Interpretation [...] PERCENT (BEAKER) (test code = 2801) POCT-GLUCOSE [id number] 17:51:00 Test Item Value Reference Range Interpretation Comments POC-GLUCOSE METER 342 mg/dL 70-110 H Notified R Christy BOSS/TESTED (BEAKER) (test code = AT [facility] [address] [place] [address]) [facility] 7703 0
[2020-08-03 12:04] LABS: Absolute Lymphocytes (CBC) 1.4 K/uL (0.7-4.9); Basophils % 1.1 % (0-1.3); Hematocrit 31.9 % (39.6-49.0); Lymphocytes % 16.2 % (15.3-44.8); MPV 11.7 fL (7.6-11.3); RBC Red Blood Cell Count 3.17 M/uL (4.33-5.43)
[2020-08-03 12:38] LABS: Potassium 6.9 mmol/L (3.5-5.1)
[2020-08-03] MEDS ORDERED: INSULIN -REGULAR HUMAN 50 UNIT/0.5 ML ML ONE (13:22)
[2020-08-03] MEDS ORDERED: ALBUTEROL 2.5 MG/3 ML NEB SOL ONE (13:23)
[2020-08-03] MEDS ORDERED: IPRATROPIUM BROM 0.5MG/2.5ML ONE ×2 (13:24→20:08)
[2020-08-03] MEDS ORDERED: CALCIUM GLUCONATE 1 GM IVPB 1 GM/50 ML BAG IV ONE (13:24)
[2020-08-03] MEDS ORDERED: D50W 50 ML IV ONE (13:24)
[2020-08-03] MEDS ORDERED: SODIUM BICARB 50 MEQ/50ML VIAL ONE (13:24)
--- NOTE | 2020-08-03 15:56 | ER ---
Nurse's Notes [facility] Name: Wero Kwong Age: 55 yrs Sex: Male : 1965 Arrival Date: 08/03/2020 Time: 10:19 Bed 6 Private MD: Diagnosis: Altered mental status, unspecified;Acute worsening of ESRD;Hyperkalemia Presentation: 08/03 10:21 Chief complaint: EMS states: DIALYSIS NON-COMPLIANT, DIARRHEA x2 DAYS. Coronavirus bp screen: At this time, the client does not indicate any symptoms associated with coronavirus-19. Ebola Screen: No symptoms or risks identified at this time. Initial Sepsis Screen: Does the patient meet any 2 criteria? No. Patient's initial sepsis screen is negative. Does the patient have a suspected source of infection? No. Patient's initial sepsis screen is negative. Risk Assessment: Do you want to hurt yourself or someone else? Patient reports no desire to harm self or others. Onset of symptoms is unknown. Care prior to arrival: Glucose check: 293. 10:21 Method Of Arrival: EMS: [facility] bp 10:21 Acuity: MARIA [place] ROS[place] 3 bp Triage Assessment: 10:23 General: Appears in no apparent distress. comfortable, obese, Behavior is calm, bp cooperative, drowsy. Pain: Denies pain. EENT: No deficits noted. Neuro: No deficits noted. Cardiovascular: No deficits noted. Respiratory: Breath sounds with crackles bilaterally. GI: Reports diarrhea. : No signs and/or symptoms were reported regarding the genitourinary system. Derm: No signs and/or symptoms reported regarding the dermatologic system. Musculoskeletal: No signs and/or symptoms reported regarding the musculoskeletal system. Historical: - Allergies: 10:23 Codeine; bp 10:23 Morphine; bp - Home Meds: 18:11 calcium acetate 667 mg Oral cap 1 caps twice a day [Active]; citalopram 20 mg tab 1 tab bp once daily [Active]; clonazepam 0.5 mg Oral tab as needed [Active]; gabapentin 300 mg Oral cap 3 caps twice a day [Active]; isosorbide mononitrate 60 mg Oral Tb24 [Active]; levetiracetam 500 mg Oral tab 1 tab 2 times per day [Active]; lisinopril 10 mg Oral tab 1 tab once daily [Active]; methocarbamol 500 mg Oral tab as needed [Active]; metoclopramide HCl 10 mg Oral tab [Active]; Nephro-Steven 0.8 mg Oral tab daily [Active]; Novolog 100 unit/mL Sub-Q soln three times a day [Active]; ondansetron HCl 8 mg Oral tab 1 tab every 8 hours [Active]; pantoprazole 40 mg Oral TbEC 1 tab once daily [Active]; sevelamer carbonate 800 mg Oral tab 1 tab twice a day [Active]; simvastatin 40 mg Oral tab 1 tab once daily [Active]; Toujeo SoloStar 300 unit/mL (1.5 mL) subcutaneous inpn 65 unit daily [Active]; tramadol 50 mg Oral tab 1 tab as needed [Active]; - PMHx: 10:23 CAD; CHF; Cirrhosis; CVA; Diabetes - IDDM; dialysis (); High Cholesterol; bp Hypertension; kidney failure; Myocardial infarction; neuropathy; Seizures; - Immunization history:: Adult Immunizations up to date. - Social history:: Smoking status: unknown. Screenin:25 Abuse screen: Denies threats or abuse. Denies injuries from another. Nutritional bp screening: No deficits noted. Tuberculosis screening: No symptoms or risk factors identified. Fall Risk None identified. Assessment: 10:25 General: SEE TRIAGE NOTE. bp 11:56 Reassessment: No changes from previously documented assessment. Patient and/or family bp updated on plan of care and expected duration. Pain level reassessed. Patient is alert, oriented x 3, equal unlabored respirations, skin warm/dry/pink. ALL CURRENT ORDERS COMPLETE, NO CHANGE IN NEURO STATUS. 13:00 Reassessment: No changes from previously documented assessment. Patient and/or family bp updated on plan of care and expected duration. Pain level reassessed. Patient is alert, oriented x 3, equal unlabored respirations, skin warm/dry/pink. PT SLEEPING, DISPO PENDING. 14:55 Reassessment: PT D/C PIV AND MONITORING. REFUSING TO COOPERATE WITH HEALTH CARE. bp NOTIFIED. 16:38 Reassessment: No changes from previously documented assessment. Patient and/or family bp updated on plan of care and expected duration. Pain level reassessed. Patient is alert, oriented x 3, equal unlabored respirations, skin warm/dry/pink. DR CODY AT B/S. PT CONTINUES TO REFUSE PIV ACCESS AND OTHER HEALTH CARE ACTIVITIES. Vital Signs: 10:21 Temp 99.3; Pulse Ox 98% on 2 lpm NC; bp 11:55 BP 116 / 68; Pulse 73; Resp 16; Pulse Ox 97% ; bp 13:00 BP 126 / 66; Pulse 75; Resp 16; Pulse Ox 90% on R/A; bp 14:55 bp 16:40 BP 123 / 68; Pulse 72; Resp 16; Pulse Ox 100% ; bp 18:00 BP 120 / 69; Pulse 69; Resp 17; Pulse Ox 95% ; bp 14:55 PT REFUSING bp ED Course: 10:19 Patient arrived in ED. bp 10:20 Leon Yuen, HAYLEE is Primary Nurse. bp 10:22 Triage completed. bp 10:23 Arm band placed on. bp 10:25 Patient has correct armband on for positive identification. Placed in gown. Bed in low bp position. Call light in reach. Side rails up X2. 10:46 Juan Mishra MD is Attending Physician. kdr 11:56 Inserted saline lock: 20 gauge in left antecubital area, using aseptic technique. Blood bp collected. 14:56 IV discontinued, BY PATIENT. bp 15:54 Jacqueline Cody MD is Hospitalizing Provider. kdr 18:09 No provider procedures requiring assistance completed. NO PIV IN PLACE. PT REFUSES. bp Administered Medications: 13:00 Drug: Albuterol - atroVENT (ipratropium) (3:1) (2.5 mg - 0.5 mg) 3 ml Route: Nebulizer; bp 18:13 Follow up: Response: No adverse reaction bp 13:00 Drug: Calcium Gluconate 1 grams Route: IVPB; Infused Over: 60 mins; Site: left bp antecubital; 18:13 Follow up: IV Status: Completed infusion; IV Intake: 100ml bp 13:00 Drug: Insulin Regular Human 10 units {Co-Signature: ld1 (Aminata Ng RN).} Route: bp IVP; Site: left antecubital; 18:13 Follow up: Response: No adverse reaction bp 13:00 Drug: D50W 50 ml Route: IVP; Site: left antecubital; bp 18:13 Follow up: Response: No adverse reaction bp 13:00 Drug: Sodium Bicarbonate 1 amp Route: IVP; Site: left antecubital; bp 18:12 Follow up: Response: No adverse reaction bp Intake: 18:13 IV: 100ml; Total: 100ml. bp Outcome: 15:56 Decision to Hospitalize by Provider. kdr 18:37 Admitted to Med/surg accompanied by tech, via stretcher, room 212, with chart, Report bp called to SILAS LEACH 18:37 Condition: stable 18:37 Instructed on the need for admit. 19:06 Patient left the ED. bp Signatures: Juan Mishra MD MD kdr Leon Yuen, RN RN bp Aminata Ng RN ld1
--- NOTE | 2020-08-03 15:56 | EDPHYS ---
Physician Documentation [facility] Name: Wero Kwong Age: 55 yrs Sex: Male : 1965 Arrival Date: 08/03/2020 Time: 10:19 Bed 6 Private MD: ED Physician Juan Mishra HPI: 08/03 18:44 This 55 yrs old Male presents to ER via EMS with complaints of Diarrhea. kdr 18:44 The patient presents to the emergency department with diarrhea, that is intermittent. kdr Onset: The symptoms/episode began/occurred 1 week(s) ago. Possible causes: unknown. The symptoms are aggravated by nothing. The symptoms are alleviated by nothing. Associated signs and symptoms: Pertinent positives: nausea, confusion. Severity of symptoms: At their worst the symptoms were mild moderate in the emergency department the symptoms have improved markedly. The patient has not experienced similar symptoms in the past. The patient has not recently seen a physician. The patient has been unable to be dialyzed for the past week (, , Fri) due to having "explosive" diarrhea on arrival to the dialysis center. Today, he was sent ot the ED for further eval and admission.. Historical: - Allergies: 10:23 Codeine; bp 10:23 Morphine; bp - Home Meds: 18:11 calcium acetate 667 mg Oral cap 1 caps twice a day [Active]; citalopram 20 mg tab 1 tab bp once daily [Active]; clonazepam 0.5 mg Oral tab as needed [Active]; gabapentin 300 mg Oral cap 3 caps twice a day [Active]; isosorbide mononitrate 60 mg Oral Tb24 [Active]; levetiracetam 500 mg Oral tab 1 tab 2 times per day [Active]; lisinopril 10 mg Oral tab 1 tab once daily [Active]; methocarbamol 500 mg Oral tab as needed [Active]; metoclopramide HCl 10 mg Oral tab [Active]; Nephro-Steven 0.8 mg Oral tab daily [Active]; Novolog 100 unit/mL Sub-Q soln three times a day [Active]; ondansetron HCl 8 mg Oral tab 1 tab every 8 hours [Active]; pantoprazole 40 mg Oral TbEC 1 tab once daily [Active]; sevelamer carbonate 800 mg Oral tab 1 tab twice a day [Active]; simvastatin 40 mg Oral tab 1 tab once daily [Active]; Toujeo SoloStar 300 unit/mL (1.5 mL) subcutaneous inpn 65 unit daily [Active]; tramadol 50 mg Oral tab 1 tab as needed [Active]; - PMHx: 10:23 CAD; CHF; Cirrhosis; CVA; Diabetes - IDDM; dialysis (); High Cholesterol; bp Hypertension; kidney failure; Myocardial infarction; neuropathy; Seizures; - Immunization history:: Adult Immunizations up to date. - Social history:: Smoking status: unknown. ROS: 18:44 Constitutional: Negative for fever, chills, and weight loss, Eyes: Negative for injury, kdr pain, redness, and discharge, ENT: Negative for injury, pain, and discharge, Neck: Negative for injury, pain, and swelling, Cardiovascular: Negative for chest pain, palpitations, and edema, Respiratory: Negative for shortness of breath, cough, wheezing, and pleuritic chest pain, Back: Negative for injury and pain, : Negative for injury, bleeding, discharge, and swelling, Skin: Negative for injury, rash, and discoloration, Psych: Negative for depression, anxiety, suicide ideation, homicidal ideation, and hallucinations, Allergy/Immunology: Negative for hives, rash, and allergies, Endocrine: Negative for neck swelling, polydipsia, polyuria, polyphagia, and marked weight changes, Hematologic/Lymphatic: Negative for swollen nodes, abnormal bleeding, and unusual bruising. 18:44 Abdomen/GI: Positive for nausea, diarrhea, Negative for vomiting, abdominal cramps, abdominal distension, anorexia, dysphagia, hematemesis, black/tarry stool. 18:44 MS/extremity: Positive for chronic wound that is being treated on right foot. 18:44 Neuro: Positive for altered mental status, somnolent. states that the patient gets in this condition when his creatinine gets around 7. He has missed three dialysis sessions. Exam: 18:44 Constitutional: This is a well developed, well nourished patient who is awake, alert, kdr and in mild distress. Intermittently speeing in beed with snoring - apparent sleep apnea Head/Face: Normocephalic, atraumatic. Eyes: Pupils equal round and reactive to light, extra-ocular motions intact. Lids and lashes normal. Conjunctiva and sclera are non-icteric and not injected. Cornea within normal limits. Periorbital areas with no swelling, redness, or edema. Neck: Trachea midline, no thyromegaly or masses palpated, and no cervical lymphadenopathy. Supple, full range of motion without nuchal rigidity, or vertebral point tenderness. No Meningismus. Chest/axilla: Normal chest wall appearance and motion. Nontender with no deformity. No lesions are appreciated. Cardiovascular: Regular rate and rhythm with a normal S1 and S2. No gallops, murmurs, or rubs. Normal PMI, no JVD. No pulse deficits. Abdomen/GI: Soft, non-tender, with normal bowel sounds. No distension or tympany. No guarding or rebound. No evidence of tenderness throughout. Back: No spinal tenderness. No costovertebral tenderness. Full range of motion. Skin: Warm, dry with normal turgor. Normal color with no rashes, no lesions, and no evidence of cellulitis. 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 He is non-ambulatory for some years . Vital Signs: 10:21 Temp 99.3; Pulse Ox 98% on 2 lpm NC; bp 11:55 BP 116 / 68; Pulse 73; Resp 16; Pulse Ox 97% ; bp 13:00 BP 126 / 66; Pulse 75; Resp 16; Pulse Ox 90% on R/A; bp 14:55 bp 16:40 BP 123 / 68; Pulse 72; Resp 16; Pulse Ox 100% ; bp 18:00 BP 120 / 69; Pulse 69; Resp 17; Pulse Ox 95% ; bp 14:55 PT REFUSING bp MDM: 15:56 Patient medically screened. kdr 16:14 Data reviewed: vital signs, lab test result(s), radiologic studies. Counseling: I had a kdr detailed discussion with the patient and/or guardian regarding: the historical points, exam findings, and any diagnostic results supporting the discharge/admit diagnosis, lab results, radiology results, the need for further work-up and treatment in the hospital. Physician consultation: Gerald Guerra DO was called at 16:14, was contacted at 16:14, regarding admission, consult, patient's condition, need to evaluate the patient as soon as possible, and will see patient in inpatient room. 08/03 11:25 Order name: CBC with Diff; Complete Time: 12:24 kdr 08/03 11:25 Order name: Chem 7; Complete Time: 12:48 kdr 08/03 11:25 Order name: AMMONIA; Complete Time: 12:37 kdr 08/03 17:16 Order name: Comprehensive Metabolic Panel EDNY 08/03 17:16 Order name: Comprehensive Metabolic Panel EDNY 08/03 17:16 Order name: CONS Physician Consult EDNY 08/03 18:05 Order name: SARS-COV-2 RT PCR EDNY 08/03 11:26 Order name: FSBS; Complete Time: 11:55 kdr 08/03 17:16 Order name: CONS Physician Consult EDNY 08/03 17:16 Order name: Renal EDMS Administered Medications: 13:00 Drug: Albuterol - atroVENT (ipratropium) (3:1) (2.5 mg - 0.5 mg) 3 ml Route: Nebulizer; bp 18:13 Follow up: Response: No adverse reaction bp 13:00 Drug: Calcium Gluconate 1 grams Route: IVPB; Infused Over: 60 mins; Site: left bp antecubital; 18:13 Follow up: IV Status: Completed infusion; IV Intake: 100ml bp 13:00 Drug: Insulin Regular Human 10 units {Co-Signature: ld1 (Aminata Ng RN).} Route: bp IVP; Site: left antecubital; 18:13 Follow up: Response: No adverse reaction bp 13:00 Drug: D50W 50 ml Route: IVP; Site: left antecubital; bp 18:13 Follow up: Response: No adverse reaction bp 13:00 Drug: Sodium Bicarbonate 1 amp Route: IVP; Site: left antecubital; bp 18:12 Follow up: Response: No adverse reaction bp Disposition: 08/03/20 15:56 Hospitalization ordered by Jacqueline Cody for Observation. Preliminary diagnosis are Altered mental status, unspecified, Acute worsening of ESRD, Hyperkalemia. - Bed requested for Telemetry/MedSurg (observation). - Status is Observation. bp - Condition is Fair. - Problem is an acute exacerbation. - Symptoms have improved. Signatures: Dispatcher [employer] EDNY Juan Mishra MD MD kdr Malu Feldman RN RN tl1 Leon Yuen, RN RN bp Aminata Ng RN ld1 Corrections: (The following items were deleted from the chart) 12:42 11:26 Arterial Blood Gas+RC.LAB.BRZ ordered. EDMS EDMS 16:47 16:25 CORONAVIRUS+MR.LAB.BRZ ordered. EDNY EDMS 17:46 15:56 Hospitalization Ordered by Jacqueline Cody MD for Observation. Preliminary tl1 diagnosis is Altered mental status, unspecified; Acute worsening of ESRD; Hyperkalemia. Bed requested for Telemetry/MedSurg (observation). Status is Observation. Condition is Fair. Problem is an acute exacerbation. Symptoms have improved. kdr 19:06 17:46 08/03/2020 15:56 Hospitalization Ordered by Jacqueline Cody MD for Observation. bp Preliminary diagnosis is Altered mental status, unspecified; Acute worsening of ESRD; Hyperkalemia. Bed requested for Telemetry/MedSurg (observation). Status is Observation. Condition is Fair. Problem is an acute exacerbation. Symptoms have improved. tl1
[2020-08-03] MEDS ORDERED: SOD POLYSTYREN SUL 15 GM/60 ML UCUP PO ONE ×3 (17:11→23:51)
[2020-08-03] MEDS ORDERED: ALBUTEROL 2.5 MG/3 ML NEB SOL NEB PRN (17:12)
[2020-08-03] MEDS ORDERED: EPOETIN 4,000 UNIT/ML VIAL IV SCH (17:15)
--- NOTE | 2020-08-03 17:22 | P.HP ---
Certification for Inpatient Patient admitted to: Observation With expected LOS: <2 Midnights Patient will require the following post-hospital care: None Practitioner: I am a practitioner with admitting privileges, knowledge of patient current condition, hospital course, and medical plan of care. Services: Services provided to patient in accordance with Admission requirements found in Title 42 Section 412.3 of the Code of Federal Regulations Patient History Date of Service: 08/03/20 Reason for admission: Drowsiness, shortness of breath, History of Present Illness: 54-year-old male with past medical history of hypertension, PVD, diabetes mellitus, CHF-on non diastolic, ESRD on HD TTS follows with Dr. omar morris. Patient states she has missed his dialysis for the last 2 sessions. Last dialysis was 5 days ago. He presented today because of increasing drowsiness. ER physician reports stated he gets more drowsy after he missed dialysis. Patient is drowsy now but able to give history. He admits to worsening shortness of breath with increasing body swelling. He admits to orthopnea, worsening leg swelling also. He denies any nausea vomiting or chest pain. He states he has been taking treatment for his persistent right foot wound and follows with wound Care did unable to tell me his wound care physician. On presentation in the ED he was noted with elevated creatinine of 7 as well as potassium of 6.9. Chest x-ray shows mild pulmonary edema. Allergies morphine Allergy (Verified 03/13/18 00:11) Hives/Rash Home medications list reviewed: No Home Medications: Aspirin Chewable [Aspirin Chewable*] 81 mg PO DAILY 04/24/20 Atenolol [Tenormin] 50 mg PO BEDTIME 04/24/20 Atorvastatin Calcium [Lipitor] 40 mg PO BEDTIME 04/24/20 Bacillus Coagulans/Vitamin D3 [Probiotic 2 Billion Gummies] 2 tab PO DAILY 04/24/20 Calcium Acetate 1 tab PO TIDWM 04/24/20 Citalopram Hydrobromide [Citalopram HBr] 20 mg PO DAILY 04/24/20 Folic Acid/Vitamin B Comp W-C [Nephro-Steven Tablet] 1 tab PO DAILY 04/24/20 Gabapentin 2 tab PO BEDTIME 04/24/20 Gabapentin 3 tab PO DAILY 04/24/20 Hydrocodone Bit/Acetaminophen [Hydrocodon-Acetaminophen 5-325] 1 tab PO TIDP PRN 04/24/20 Insulin Aspart [Novolog] 1 unit SQ SEECOM 04/24/20 Insulin Glargine,Hum.rec.anlog [Toumaksimo Solostar] 85 units SQ DAILY 04/24/20 Levetiracetam [Keppra] 250 mg PO BID 04/24/20 Liraglutide [Victoza 2-Willy] 1.8 mg SQ DAILY 04/24/20 Lisinopril [Zestril] 10 mg PO DAILY 04/24/20 Metoclopramide HCl [Reglan] 10 mg PO SEECOM 04/24/20 Pantoprazole [Protonix Tab*] 40 mg PO DAILY 04/24/20 Sevelamer Carbonate 800 mg PO TIDWM 04/24/20 clonazePAM [Klonopin*] 0.5 mg PO PRN 04/24/20 Isosorbide Mononitrate [Isosorbide Mononitrate ER] 60 mg PO DAILY 04/25/20 Collagenase [Santyl Ointment] 1 appl TOP DAILY #1 tube 04/26/20 Doxycycline Hyclate [Vibramycin] 100 mg PO BID #7 capsule 04/26/20 Epoetin [Retacrit] 4,000 unit IV EVERY HD vial 04/26/20 Heparin [Heparin 1,000 units/mL *] 6,000 unit IV EVERY HD PRN vial 04/26/20 Medihoney [Medihoney Woundcare Gel*] 1 appl TOP DAILY #1 tube 04/26/20 - Past Medical/Surgical History Diabetic: Yes -: History CVA -: Liver cirrhosis with history hepatitis A -: CAD -: Diabetes mellitus type 2, insulin dependent -: CAD with prior CO -: Diabetic neuropathy, retinopathy -: CHF -: Hyperlipidemia -: seizures -: Cardiac stents -: left acl repair -: Cholecystectomy Psychosocial/ Personal History: Patient lives at home and is . He has no children. - Family History Mother -: Heart disease, Hypertension - Social History Smoking Status: Current every day smoker Smoking therapy provided: Yes Patient receptive to therapy: No Alcohol use: No CD- Drugs: No Caffeine use: Yes Place of Residence: Home Review of Systems 10-point ROS is otherwise unremarkable Physical Examination - Physical Exam General: Alert, Oriented x3, Obese HEENT: Atraumatic, Normocephalic, PERRLA Neck: Supple, 2+ carotid pulse no bruit, JVD distended Respiratory: Diminished, Crackles/rales Cardiovascular: Normal pulses, Regular rate/rhythm, Normal S1 S2, Edema (2+ b/l ) Gastrointestinal: Normal bowel sounds, Soft and benign, Non-distended Musculoskeletal: No contractures, Swelling Integumentary: Diabetic ulcer (right foot ) Neurological: Normal speech, Normal strength at 5/5 x4 extr (drowsy) Urinary: Dialysis catheter (right chest wall) - Studies Laboratory Data (last 24 hrs) 08/03/20 11:47: Sodium 136, Potassium 6.9 H*, BUN 87 H, Creatinine 7.59 H*, Glucose 254 H 08/03/20 11:47: WBC 8.60, Hgb 10.5 L, Hct 31.9 L, Plt Count 139 L Assessment and Plan - Problems (Diagnosis) (1) Hyperkalemia Current Visit: Yes Status: Acute (2) Anasarca Current Visit: No Status: Acute (3) End stage renal disease on dialysis Current Visit: No Status: Acute (4) Type 2 diabetes mellitus with foot ulcer Current Visit: No Status: Acute (5) Coronary artery disease Onset Date: 03/13/18 Current Visit: No Status: Chronic Qualifiers: (6) Diabetes Current Visit: No Status: Chronic Qualifiers: (7) HTN (hypertension) Current Visit: No Status: Chronic Qualifiers: (8) Hyperlipidemia Current Visit: No Status: Chronic Qualifiers: (9) Liver cirrhosis Onset Date: 03/13/18 Current Visit: No Status: Chronic Qualifiers: (10) Seizure disorder Current Visit: No Status: Chronic - Advance Directives Does patient have a Living Will: Yes Does patient have a Durable POA for Healthcare: No Physician Review Additional Text: Plan Nephrology consulted for stat dialysis Kayexalate/D50/insulin/calcium gluconate/albuterol given we will hold blood pressure meds for now given borderline low blood pressure. Avoid sedatives for now Consult ID for wound care Follow dialysis with ultrafiltration and lower potassium back Wean off O2 as tolerated post dialysis May need repeat HD in a.m. Start heparin for DVT prophylaxis Initiate insulin sliding scale with Accu-Cheks
[2020-08-03] MEDS ORDERED: POTASSIUM CL SA 10 MEQ TAB PO ONE (18:17)
[2020-08-03] MEDS: IPRATROPIUM BROM 0.5MG/2.5ML NEB SCH (20:15)
[2020-08-03] MEDS: levETIRAcetam 500 MG TAB PO SCH (20:39)
[2020-08-03] MEDS: INSULIN -REGULAR HUMAN 50 UNIT/0.5 ML ML SQ SCH (22:32)
[2020-08-03] MEDS ORDERED: ALBUMIN HUMAN 25% 50 ML IV SCH (23:45)
[2020-08-03] MEDS ORDERED: NA CHLORIDE 0.9% 1,000 ML IV PRN (23:49)
[2020-08-03] MEDS ORDERED: MANNITOL 25% 12.5 GM/50 ML VIAL IV PRN (23:49)
[2020-08-04 00:36] LABS: Potassium 5.9 mmol/L (3.5-5.1)
[2020-08-04 01:31] VITALS: BMI 33.6
[2020-08-04] MEDS: IPRATROPIUM BROM 0.5MG/2.5ML NEB SCH ×4 (01:45→19:25)
[2020-08-04 06:00] LABS: Absolute Lymphocytes (CBC) 1.6 K/uL (0.7-4.9); Basophils % 0.6 % (0-1.3); Lymphocytes % 20.6 % (15.3-44.8); MPV 10.8 fL (7.6-11.3); RBC Red Blood Cell Count 2.85 M/uL (4.33-5.43)
[2020-08-04 06:22] LABS: Bilirubin Total 0.6 mg/dL (0.2-1.0); Potassium 3.9 mmol/L (3.5-5.1); Protein, Total 7.1 g/dL (6.4-8.2)
[2020-08-04] MEDS: INSULIN -REGULAR HUMAN 50 UNIT/0.5 ML ML SQ SCH ×4 (07:30→20:46)
[2020-08-04] MEDS: BACILLUS COAGULANS PO SCH (09:00)
[2020-08-04] MEDS: COLLAGENASE 30 GM OINTMENT TOP SCH (09:00)
[2020-08-04] MEDS: VITAMIN D3 PO SCH (09:00)
[2020-08-04] MEDS: MEDIHONEY 44 ML TOPICAL TUBE TOP SCH (09:00)
[2020-08-04] MEDS: [UNRECOGNIZED DRUG - OTHER] PO SCH (09:00)
--- NOTE | 2020-08-04 10:14 | P.CNS ---
Date of Consult: 08/04/20 Reason for Consult: right foot wound Chief Complaint: Drowsiness, shortness of breath, History of Present Illness: The patient is a 55-year-old male with a past medical history of hypertension, PVD, diabetes mellitus type 2 uncontrolled, congestive heart failure, ESRD on HD TTS who presented to the ED with drowsiness shortness of breath and right foot wound. Patient states that he has missed his dialysis for the past 2 sessions and that his last dialysis was 5 days ago. During patient interview patient was very drowsy and unable to participate in the patient interview and little history was obtained. As such history has been obtained from chart review. ED physician reports that the stated that the patient gets drowsy after he misses sessions of his dialysis. In the ED the patient admitted to worsening shortness of breath with increased body swelling. Patient admitted to orthopnea and worsening bilateral lower extremity swelling. He states that he has been following up outpatient for his persistent right foot wound and follows wound care. Infectious disease and wound care has been consulted to manage the patient's right foot wound. It was very difficult to obtain a history from the patient but he did state that the wound started about 2 weeks ago. Unable to determine if the wound began from trauma. Wound is likely developed due to the patient's comorbidities including diabetes and PVD. X-ray has been ordered to rule out osteomyelitis. During physical examination no active draining change or bone exposure present. Wound VAC has been ordered 125 mmHg pressure intermediate. Allergies morphine Allergy (Verified 03/13/18 00:11) Hives/Rash Home Medications: Atenolol [Tenormin] 50 mg PO BEDTIME 04/24/20 Atorvastatin Calcium [Lipitor] 40 mg PO BEDTIME 04/24/20 Calcium Acetate 1 tab PO TIDWM 04/24/20 Citalopram Hydrobromide [Citalopram HBr] 20 mg PO DAILY 04/24/20 Gabapentin 3 tab PO SEECOM 04/24/20 Insulin Aspart [Novolog] 1 unit SQ SEECOM 04/24/20 Insulin Glargine,Hum.rec.anlog [Toujeo Solostar] 85 units SQ DAILY 04/24/20 Levetiracetam [Keppra] 250 mg PO BID 04/24/20 Liraglutide [Victoza 2-Willy] 1.2 mg SQ SEECOM 04/24/20 Lisinopril [Zestril] 10 mg PO DAILY 04/24/20 Metoclopramide HCl [Reglan] 10 mg PO SEECOM 04/24/20 Pantoprazole [Protonix Tab*] 40 mg PO DAILY 04/24/20 Sevelamer Carbonate 800 mg PO TID 04/24/20 Isosorbide Mononitrate [Isosorbide Mononitrate ER] 60 mg PO DAILY 04/25/20 Clopidogrel Bisulfate [Plavix] 1 tab PO DAILY 08/04/20 Isosorbide Mononitrate [Isosorbide Mononitrate ER] 3 tab PO DAILY 08/04/20 Vit B Comp No.3/Folic/C/Biotin [Nephro-Steven Rx Tablet] 1 tab PO DAILY 08/04/20 - Past Medical/Surgical History Diabetic: Yes -: History CVA -: Liver cirrhosis with history hepatitis A -: CAD -: Diabetes mellitus type 2, insulin dependent -: CAD with prior DC -: Diabetic neuropathy, retinopathy -: CHF -: Hyperlipidemia -: seizures -: Cardiac stents -: left acl repair -: Cholecystectomy Psychosocial/ Personal History: Patient lives at home and is . He has no children. - Family History Mother Medical History: Heart disease, Hypertension - Social History Smoking Status: Unknown if ever smoked Alcohol use: No CD- Drugs: No Caffeine use: No Place of Residence: Home Review of Systems 10-point ROS is otherwise unremarkable Physical Examination Temp Pulse Resp BP Pulse Ox 98.2 F 75 17 197/81 H 99 08/04/20 08:00 08/04/20 08:00 08/04/20 08:00 08/04/20 08:00 08/04/20 08:00 General: Other (Drowsy difficult to arouse.) HEENT: Atraumatic, Normocephalic Neck: Supple, 2+ carotid pulse no bruit Respiratory: Diminished Cardiovascular: Normal pulses, Regular rate/rhythm, Edema (Bilateral lower extremity edema worse in the right lower extremity) Capillary refill: <2 Seconds Gastrointestinal: Normal bowel sounds Musculoskeletal: No clubbing, No swelling, No contractures Integumentary: Other (Wound to lateral plantar aspect of right foot. Wound edges show skin maceration. Base of wound is 100% granulation/muscle tissue. No bone exposed. No active drainage noted from wound site.) Laboratory Data (last 24 hrs) 08/03/20 11:47: Sodium 136, Potassium 6.9 H*, BUN 87 H, Creatinine 7.59 H*, Glucose 254 H 08/03/20 11:47: WBC 8.60, Hgb 10.5 L, Hct 31.9 L, Plt Count 139 L Conclusions/Impression: Antibiotics: none Assessment: Right foot wound ESRD on HD noncompliant with dialysis Diabetes type 2 uncontrolled -PVD -CHF with bilateral lower extremity swelling Anemia Plan: -Right foot wound: X-ray has been ordered to rule out osteomyelitis. Wound is clean dry and intact with no clinical signs of infection with no bone exposed on physical exam. Wound VAC has been ordered 125 mmHg pressure intermittent. Change twice a week. -Hemoglobin A1c has been ordered. Strict glucose monitoring required for optimal wound healing. -Anemia: Likely anemia of chronic disease/due to renal failure. Patient is on epoetin -CHF with bilateral lower extremity swelling: Recommend wrapping legs to reduce swelling -Medical management per primary team Continue to monitor CBC and BMP Continue to monitor for signs of infection Plan of care discussed with Dr. Perez Thank you for consultation.
[2020-08-04] MEDS: SEVELAMER CARBONATE 800 MG TABLET PO SCH ×3 (10:17→17:00)
[2020-08-04] MEDS: levETIRAcetam 500 MG TAB PO SCH ×2 (10:17→20:45)
[2020-08-04] MEDS: ASPIRIN 81 MG CHEWABLE TABLET PO SCH (10:17)
[2020-08-04] MEDS: MULTIVITAMINS,THERAPEUT 1 TAB PO SCH (10:17)
[2020-08-04] MEDS: PANTOPRAZOLE 40MG TABLET PO SCH (10:17)
--- NOTE | 2020-08-04 12:06 | RAD REPORT ---
EXAM DESCRIPTION: RAD - Foot Right 2 View - 08/04/2020 11:59 am CLINICAL HISTORY: r/u osteomyelitis, lateral foot wound, foot pain COMPARISON: Foot Right 3 View dated 04/24/2020; Foot Right 3 View dated 04/22/2020 FINDINGS: Transverse fracture is present in the proximal shaft of the fifth proximal phalanx. Minima l angulation and very minimal 1 mm lateral displacement. No other fracture changes are seen. No signi ficant joint space degenerative change. History indicates wound is the lateral right foot mid metatarsal level. Fifth metatarsal shows no caleb tructive change. No air or foreign body in the soft tissues. IMPRESSION: No osteomyelitis findings. Osteomyelitis can exist prior to radiographic bone destructio n. Fracture of the right fifth proximal phalanx as detailed.
--- NOTE | 2020-08-04 12:56 | P.CNS ---
Date of Consult: 08/04/20 Reason for Consult: ESRD/ Hyperkalemia Requesting Physician: Jacqueline Cody Chief Complaint: Drowsiness, shortness of breath, History of Present Illness: 54-year-old male with past medical history of hypertension, PVD, diabet es mellitus, CHF-on non diastolic, ESRD on HD TTS follows with out vehicle. Patient states she has missed his dialysis for the last 2 sessions. Last dialysis was 5 days ago. He presented today because of increasing drowsiness. ER physician reports stated he gets more drowsy after he missed dialysis. Patient is drowsy now but able to give history. He admits to worsening shortness of breath with increasing body swelling. He admits to orthopnea, worsening leg swelling also. He denies any nausea vomiting or chest pain. He states he has been taking treatment for his persistent right foot wound and follows with wound Care did unable to tell me his wound care physician. On presentation in the ED he was noted with elevated creatinine of 7 as well as potassium of 6.9. Chest x-ray shows mild pulmonary edema. 18:44 This 55 yrs old Male presents to ER via EMS with complaints of Diarrhea. kdr 18:44 The patient presents to the emergency department with diarrhea, that is intermittent. kdr Onset: The symptoms/episode began/occurred 1 week(s) ago. Possible causes: unknown. The symptoms are aggravated by nothing. The symptoms are alleviated by nothing. Associated signs and symptoms: Pertinent positives: nausea, confusion. Severity of symptoms: At their worst the symptoms were mild moderate in the emergency department the symptoms have improved markedly. The patient has not experienced similar symptoms in the past. The patient has not recently seen a physician. The patient has been unable to be dialyzed for the past week (T, TH, Fri) due to having "explosive" diarrhea on arrival to the dialysis center. Today, he was sent ot the ED for further eval and admission Allergies morphine Allergy (Verified 03/13/18 00:11) Hives/Rash Home medications list reviewed: Yes Home Medications: Atenolol [Tenormin] 50 mg PO BEDTIME 04/24/20 Atorvastatin Calcium [Lipitor] 40 mg PO BEDTIME 04/24/20 Calcium Acetate 1 tab PO TIDWM 04/24/20 Citalopram Hydrobromide [Citalopram HBr] 20 mg PO DAILY 04/24/20 Gabapentin 3 tab PO SEECOM 04/24/20 Insulin Aspart [Novolog] 1 unit SQ SEECOM 04/24/20 Insulin Glargine,Hum.rec.anlog [Toujeo Solostar] 85 units SQ DAILY 04/24/20 Levetiracetam [Keppra] 250 mg PO BID 04/24/20 Liraglutide [Victoza 2-Willy] 1.2 mg SQ SEECOM 04/24/20 Lisinopril [Zestril] 10 mg PO DAILY 04/24/20 Metoclopramide HCl [Reglan] 10 mg PO SEECOM 04/24/20 Pantoprazole [Protonix Tab*] 40 mg PO DAILY 04/24/20 Sevelamer Carbonate 800 mg PO TID 04/24/20 Isosorbide Mononitrate [Isosorbide Mononitrate ER] 60 mg PO DAILY 04/25/20 Clopidogrel Bisulfate [Plavix] 1 tab PO DAILY 08/04/20 Isosorbide Mononitrate [Isosorbide Mononitrate ER] 3 tab PO DAILY 08/04/20 Vit B Comp No.3/Folic/C/Biotin [Nephro-Steven Rx Tablet] 1 tab PO DAILY 08/04/20 - Past Medical/Surgical History Diabetic: Yes -: History CVA -: Liver cirrhosis with history hepatitis A -: CAD -: Diabetes mellitus type 2, insulin dependent -: CAD with prior AL -: Diabetic neuropathy, retinopathy -: CHF -: Hyperlipidemia -: seizures -: Cardiac stents -: left acl repair -: Cholecystectomy Psychosocial/ Personal History: Patient lives at home and is . He has no children. - Family History Mother Medical History: Heart disease, Hypertension - Social History Smoking Status: Unknown if ever smoked Alcohol use: No CD- Drugs: No Caffeine use: No Place of Residence: Home Review of Systems is unable to be obtained General: Weakness, Malaise Neurological: Weakness, Confusion Physical Examination Temp Pulse Resp BP Pulse Ox 98.2 F 75 17 197/81 H 99 08/04/20 08:00 08/04/20 08:00 08/04/20 08:00 08/04/20 08:00 08/04/20 08:00 General: In no apparent distress, Other (Poorly responsive) HEENT: Atraumatic Neck: Supple, JVD distended Respiratory: Clear to auscultation bilaterally Cardiovascular: Regular rate/rhythm, Edema Gastrointestinal: Soft and benign, Distended Musculoskeletal: No clubbing, No contractures Integumentary: No rashes, No cyanosis, Diabetic ulcer Blood work reviewed in the chart. Imagings Data: EXAM DESCRIPTION: RAD - Foot Right 2 View - 08/04/2020 11:59 am CLINICAL HISTORY: r/u osteomyelitis, lateral foot wound, foot pain COMPARISON: Foot Right 3 View dated 04/24/2020; Foot Right 3 View dated 04/22/2020 FINDINGS: Transverse fracture is present in the proximal shaft of the fifth proximal phalanx. Minimal angulation and very minimal 1 mm lateral displacement. No other fracture changes are seen. No significant joint space degenerative change. History indicates wound is the lateral right foot mid metatarsal level. Fifth metatarsal shows no destructive change. No air or foreign body in the soft tissues. IMPRESSION: No osteomyelitis findings. Osteomyelitis can exist prior to radiographic bone destruction. Fracture of the right fifth proximal phalanx as detailed. Conclusions/Impression: ESRD -Acute HD ordered Hyperkalemia -Acute HD ordered -Kayexalate as ordered HTN with CKD/ CHF -Acute HD with UF Acute on chronic diastolic CHF -Acute HD with UF Acute respiratory failure with hypercarbia -Continue CPAP DM II with CKD, Polyneuropathy -RISS Moderate malnutrition -Encourage nutrition -Start Nephrovite Anemia in CKD -Continue Retacrit ZACH/ Secondary HyperPTH -Continue Renvela -Start Cholecalciferol and Calcitriol Toxic metabolic encephalopathy -Acute HD ordered Thank you kindly for the consultation. Case reviewed with Dr. Barnett
[2020-08-04 13:47] LABS: Arterial Blood Carboxyhemoglob 1.7 % (0-1.5); Blood Gas Oxyhemoglobin 94.9 % (94-97); Blood O2 Saturation 97.8 % (92-98.5)
[2020-08-04] MEDS ORDERED: EPOETIN ALFA-EPBX 10,000 UNIT/ML VIAL SQ ONE (14:00)
--- NOTE | 2020-08-04 15:45 | P.PN ---
Subjective Date of Service: 08/04/20 Chief Complaint: Drowsiness, shortness of breath, Patient appeared quite drowsy I would drift off to sleep when I tried to wake him up. Status post hemodialysis last night. Patient currently on CPAP. Physical Examination - Vital Signs Temperature: 98.8 F Blood Pressure: 184/84 Pulse: 74 Respirations: 20 Pulse Ox (%): 97 - Physical Exam General: Other (Drowsy) HEENT: Other (BiPAP) Neck: Supple, JVD not distended Respiratory: Diminished (Diffuse) Cardiovascular: Regular rate/rhythm, Normal S1 S2, Edema (Bilateral lower extremities) Gastrointestinal: Soft and benign, Non-distended, No tenderness Musculoskeletal: No clubbing, No tenderness Integumentary: No rashes Neurological: Other (Somnolent, patient moves all extremities spontaneously.) - Studies Laboratory Data (last 24 hrs) 08/04/20 05:37: Sodium 141, Potassium 3.9, BUN 44 H D, Creatinine 4.67 H D, Glucose 118 H, Total Bilirubin 0.6, AST 51 H, ALT 55, Alkaline Phosphatase 195 H 08/04/20 05:37: WBC 7.50, Hgb 9.8 L, Hct 28.0 L, Plt Count 115 L 08/03/20 23:50: Sodium 141, Potassium 5.9 H*, BUN 91 H, Creatinine 8.48 H*, Glucose 202 H Assessment And Plan - Current Problems (Diagnosis) (1) Hyperkalemia Current Visit: Yes Status: Acute (2) End stage renal disease on dialysis Current Visit: No Status: Acute (3) Type 2 diabetes mellitus Current Visit: Yes Status: Acute (4) Liver cirrhosis Onset Date: 03/13/18 Current Visit: No Status: Chronic Qualifiers: (5) HTN (hypertension) Current Visit: No Status: Chronic Qualifiers: - Plan Urea has decreased after hemodialysis but patient is still drowsy. ABG shows no significant CO2 retention. Ammonia level is less than 10. Continue to monitor closely. Neuro checks. Case discussed with nephrology-Dr. Guerra. Dr. Guerra is planning another hemodialysis today and tomorrow. Hyperkalemia has resolved. No systemic signs of infection. Obtain blood culture. Per report, patient get drowsy when he misses dialysis. Resume home antihypertensives. Insulin sliding scale for glucose management. Physician Review Additional Text: Plan
[2020-08-04 16:55] LABS: Magnesium 2.1 mg/dL (1.8-2.4); Phosphorus 3.6 mg/dL (2.5-4.9)
[2020-08-05] MEDS: IPRATROPIUM BROM 0.5MG/2.5ML NEB SCH ×4 (02:15→19:20)
[2020-08-05 05:51] LABS: Absolute Lymphocytes (CBC) 2.1 K/uL (0.7-4.9); Hematocrit 27.6 % (39.6-49.0); Lymphocytes % 33.3 % (15.3-44.8); MPV 11.9 fL (7.6-11.3)
[2020-08-05 06:25] LABS: Albumin 2.7 g/dL (3.4-5.0); Phosphorus 4.7 mg/dL (2.5-4.9); Potassium 4.1 mmol/L (3.5-5.1)
[2020-08-05] MEDS: INSULIN -REGULAR HUMAN 50 UNIT/0.5 ML ML SQ SCH ×4 (07:30→23:39)
[2020-08-05] MEDS: BACILLUS COAGULANS PO SCH (09:00)
[2020-08-05] MEDS ORDERED: MULTIVITAMINS,THERAPEUT 1 TAB PO SCH (09:00)
[2020-08-05] MEDS: VITAMIN D3 PO SCH (09:00)
[2020-08-05] MEDS: COLLAGENASE 30 GM OINTMENT TOP SCH (09:00)
[2020-08-05] MEDS: [UNRECOGNIZED DRUG - OTHER] PO SCH (09:00)
[2020-08-05] MEDS: MEDIHONEY 44 ML TOPICAL TUBE TOP SCH (09:00)
[2020-08-05] MEDS: CALCITROL 0.25 MCG CAP PO SCH (09:34)
[2020-08-05] MEDS: levETIRAcetam 500 MG TAB PO SCH ×2 (09:34→20:00)
[2020-08-05] MEDS: VITAMIN D 5,000 UNIT CAP PO SCH (09:34)
[2020-08-05] MEDS: ASPIRIN 81 MG CHEWABLE TABLET PO SCH (09:34)
[2020-08-05] MEDS: PANTOPRAZOLE 40MG TABLET PO SCH (09:35)
[2020-08-05] MEDS: SEVELAMER CARBONATE 800 MG TABLET PO SCH ×3 (09:35→16:43)
[2020-08-05] MEDS: MULTIVITAMINS,THERAPEUT 1 TAB PO SCH (09:41)
--- NOTE | 2020-08-05 11:44 | P.DS ---
Admission Date: 08/04/20 Discharge Date: 08/05/20 Reason for Admission: Drowsiness, shortness of breath, - Problems (1) Hyperkalemia Current Visit: Yes Status: Acute (2) End stage renal disease on dialysis Current Visit: No Status: Acute (3) Type 2 diabetes mellitus Current Visit: Yes Status: Acute (4) Liver cirrhosis Onset Date: 03/13/18 Current Visit: No Status: Chronic (5) HTN (hypertension) Current Visit: No Status: Chronic Brief History of Present Illness: 54-year-old male with past medical history of hypertension, PVD, diabetes mellitus, CHF-on non diastolic, ESRD on HD TTS follows with Dr. Guerra. Patient stated he missed last 2 sessions of his dialysis. He was brought to the emergency department due to increased drowsiness. He also reported worsening shortness of breath with increasing body swelling. He denied any nausea vomiting or chest pain. He has chronic nonhealing right foot wound which is being followed by the wound care clinic. On presentation in the ED he was noted with elevated creatinine of 7 as well as potassium of 6.9. Chest x-ray shows mild pulmonary edema. Patient was admitted for urgent hemodialysis. Hospital Course: Patient admitted to the medical floor. Nephrology was consulted, patient had multiple sessions of hemodialysis. He has a history of liver cirrhosis. His ammonia level was normal. ABG did not show any CO2 retention. His mental status improved after hemodialysis. Patient received multiple sessions of hemo dialysis. He has improved to baseline and stable for discharge. <allan kennedy - Last Filed: 08/05/20 11:39> Admission Date: 08/04/20 Discharge Date: 08/06/20 <Hitesh Rodriguez - Last Filed: 08/06/20 20:15> Disposition: ROUTINE DISCHARGE Discharge Condition: FAIR Vital Signs/Physical Exam: Temp Pulse Resp BP Pulse Ox 98.9 F 66 18 140/78 94 08/05/20 08:00 08/05/20 08:00 08/05/20 08:00 08/05/20 08:00 08/05/20 08:00 General: Alert, In no apparent distress, Oriented x3 HEENT: Other (Legally blind) Neck: JVD not distended Respiratory: Clear to auscultation bilaterally, Normal air movement Cardiovascular: No edema, Regular rate/rhythm, Normal S1 S2 Gastrointestinal: Soft and benign, Non-distended Musculoskeletal: No swelling Neurological: Other (No lateralizing signs) Laboratory Data at Discharge: WBC 6.40 K/uL (4.3-10.9) D 08/05/20 05:18 Hgb 9.6 g/dL (13.6-17.9) L 08/05/20 05:18 Hct 27.6 % (39.6-49.0) L 08/05/20 05:18 Plt Count 114 K/uL (152-406) L 08/05/20 05:18 Sodium 140 mmol/L (136-145) 08/05/20 05:18 Potassium 4.1 mmol/L (3.5-5.1) 08/05/20 05:18 BUN 32 mg/dL (7-18) H 08/05/20 05:18 Creatinine 4.40 mg/dL (0.55-1.3) H 08/05/20 05:18 Glucose 115 mg/dL (74-106) H 08/05/20 05:18 Phosphorus 4.7 mg/dL (2.5-4.9) 08/05/20 05:18 Magnesium 2.1 mg/dL (1.8-2.4) 08/04/20 16:18 Total Bilirubin 0.6 mg/dL (0.2-1.0) 08/04/20 05:37 AST 51 U/L (15-37) H 08/04/20 05:37 ALT 55 U/L (12-78) 08/04/20 05:37 Alkaline Phosphatase 195 U/L (45-117) H 08/04/20 05:37 <allan kennedy - Last Filed: 08/05/20 11:39> Vital Signs/Physical Exam: Temp Pulse Resp BP Pulse Ox 98.2 F 69 16 180/90 H 98 08/06/20 17:56 08/06/20 20:03 08/06/20 17:56 08/06/20 20:03 08/06/20 17:56 Laboratory Data at Discharge: WBC 6.40 K/uL (4.3-10.9) D 08/05/20 05:18 Hgb 9.6 g/dL (13.6-17.9) L 08/05/20 05:18 Hct 27.6 % (39.6-49.0) L 08/05/20 05:18 Plt Count 114 K/uL (152-406) L 08/05/20 05:18 Sodium 142 mmol/L (136-145) 08/06/20 05:41 Potassium 3.9 mmol/L (3.5-5.1) 08/06/20 05:41 BUN 30 mg/dL (7-18) H 08/06/20 05:41 Creatinine 4.29 mg/dL (0.55-1.3) H 08/06/20 05:41 Glucose 155 mg/dL (74-106) H 08/06/20 05:41 Phosphorus 3.5 mg/dL (2.5-4.9) 08/06/20 05:41 Magnesium 2.1 mg/dL (1.8-2.4) 08/04/20 16:18 Total Bilirubin 0.6 mg/dL (0.2-1.0) 08/04/20 05:37 AST 51 U/L (15-37) H 08/04/20 05:37 ALT 55 U/L (12-78) 08/04/20 05:37 Alkaline Phosphatase 195 U/L (45-117) H 08/04/20 05:37 <Hitesh Rodriguez - Last Filed: 08/06/20 20:15> Diet: ADA Activity: Ad francisca Time spent managing pt's care (in minutes): 36 <allan kennedy - Last Filed: 08/05/20 11:39> <Hitesh Rodriguez - Last Filed: 08/06/20 20:15> Home Medications: Atenolol [Tenormin] 50 mg PO BEDTIME 04/24/20 Atorvastatin Calcium [Lipitor] 40 mg PO BEDTIME 04/24/20 Citalopram Hydrobromide [Citalopram HBr] 20 mg PO DAILY 04/24/20 Gabapentin 3 tab PO SEECOM 04/24/20 Insulin Aspart [Novolog] 1 unit SQ SEECOM 04/24/20 Insulin Glargine,Hum.rec.anlog [Toujeo Solostar] 85 units SQ DAILY 04/24/20 Levetiracetam [Keppra] 250 mg PO BID 04/24/20 Liraglutide [Victoza 2-Willy] 1.2 mg SQ SEECOM 04/24/20 Lisinopril [Zestril] 10 mg PO DAILY 04/24/20 Metoclopramide HCl [Reglan] 10 mg PO SEECOM 04/24/20 Pantoprazole [Protonix Tab*] 40 mg PO DAILY 04/24/20 Sevelamer Carbonate 800 mg PO TID 04/24/20 Isosorbide Mononitrate [Isosorbide Mononitrate ER] 60 mg PO DAILY 04/25/20 Clopidogrel Bisulfate [Plavix] 1 tab PO DAILY 08/04/20 Vit B Comp No.3/Folic/C/Biotin [Nephro-Steven Rx Tablet] 1 tab PO DAILY 08/04/20 Bacillus Coagulans/Vitamin D3 [Probiotic 2 Billion Gummies] 2 tab PO DAILY #60 08/05/20 Calcitrol [Rocaltrol*] 0.5 mcg PO DAILY #30 cap 08/05/20 Cholecalciferol (Vitamin D3) [Vitamin D 5,000 IU Cap*] 5,000 unit PO DAILY #30 cap 08/05/20 Collagenase [Santyl Ointment*] 1 appl TOP DAILY #1 tube 08/05/20 Epoetin [Retacrit] 4,000 unit IV EVERY HD vial 08/05/20 Medihoney [Medihoney Woundcare Gel*] 1 appl TOP DAILY #1 tube 08/05/20 Ubidecarenone [Coenzyme Q10*] 200 mg PO DAILY #30 cap 08/05/20 New Medications: Bacillus Coagulans/Vitamin D3 [Probiotic 2 Billion Gummies] 2 tab PO DAILY #60 Ubidecarenone [Coenzyme Q10*] 200 mg PO DAILY #30 cap Medihoney [Medihoney Woundcare Gel*] 1 appl TOP DAILY #1 tube Calcitrol [Rocaltrol*] 0.5 mcg PO DAILY #30 cap Collagenase [Santyl Ointment*] 1 appl TOP DAILY #1 tube Cholecalciferol (Vitamin D3) [Vitamin D 5,000 IU Cap*] 5,000 unit PO DAILY #30 cap Followup: Gerald Guerra, [ACTIVE - CAN ADMIT] - 1-2 Weeks NONE,NONE [Primary Care Provider] -
--- NOTE | 2020-08-05 14:43 | P.PN ---
Subjective Date of Service: 08/05/20 Chief Complaint: Drowsiness, shortness of breath, Patient appear a bit confused Status post hemodialysis this morning. He has been weaned off oxygen. He is needing assistance with transfer. Physical Examination - Vital Signs Temperature: 98.4 F Blood Pressure: 182/97 Pulse: 70 Respirations: 18 Pulse Ox (%): 96 - Physical Exam General: Confused, Other (Awake) HEENT: Mucous membr. moist/pink Neck: JVD not distended Respiratory: Clear to auscultation bilaterally, Normal air movement Cardiovascular: Regular rate/rhythm, Normal S1 S2, Edema (Lower extremities) Gastrointestinal: Soft and benign, Non-distended, No tenderness Integumentary: No rashes Neurological: Other (No focal motor deficit) Assessment And Plan - Current Problems (Diagnosis) (1) Hyperkalemia Current Visit: Yes Status: Acute (2) End stage renal disease on dialysis Current Visit: No Status: Acute (3) Type 2 diabetes mellitus Current Visit: Yes Status: Acute (4) Liver cirrhosis Onset Date: 03/13/18 Current Visit: No Status: Chronic Qualifiers: (5) HTN (hypertension) Current Visit: No Status: Chronic Qualifiers: - Plan Mental status has improved but not back to baseline. Status post hemodialysis today. Hyperkalemia has resolved. No systemic signs of infection. Blood culture is pending. Home antihypertensives resumed. Monitor blood pressure. Insulin sliding scale for glucose management. PT consult.
[2020-08-05] MEDS: COENZYME Q10- 200 MG CAP PO SCH (16:43)
[2020-08-05] MEDS ORDERED: LORazepam 2 MG/ML VIAL IV ONE (19:31)
[2020-08-06] MEDS: IPRATROPIUM BROM 0.5MG/2.5ML NEB SCH ×4 (01:20→20:00)
[2020-08-06 06:13] LABS: Albumin 2.8 g/dL (3.4-5.0); Phosphorus 3.5 mg/dL (2.5-4.9); Potassium 3.9 mmol/L (3.5-5.1)
[2020-08-06] MEDS: VITAMIN D3 PO SCH (09:00)
[2020-08-06] MEDS: BACILLUS COAGULANS PO SCH (09:00)
[2020-08-06] MEDS: [UNRECOGNIZED DRUG - OTHER] PO SCH (09:00)
[2020-08-06] MEDS: COLLAGENASE 30 GM OINTMENT TOP SCH (09:53)
[2020-08-06] MEDS: MULTIVITAMINS,THERAPEUT 1 TAB PO SCH (09:53)
[2020-08-06] MEDS: INSULIN -REGULAR HUMAN 50 UNIT/0.5 ML ML SQ SCH ×4 (09:54→20:11)
[2020-08-06] MEDS: MEDIHONEY 44 ML TOPICAL TUBE TOP SCH (09:54)
[2020-08-06] MEDS: PANTOPRAZOLE 40MG TABLET PO SCH (09:55)
[2020-08-06] MEDS: levETIRAcetam 500 MG TAB PO SCH ×2 (09:55→20:04)
[2020-08-06] MEDS: CALCITROL 0.25 MCG CAP PO SCH (09:55)
[2020-08-06] MEDS: ASPIRIN 81 MG CHEWABLE TABLET PO SCH (09:55)
[2020-08-06] MEDS: COENZYME Q10- 200 MG CAP PO SCH (09:56)
[2020-08-06] MEDS: SEVELAMER CARBONATE 800 MG TABLET PO SCH ×3 (09:56→16:50)
[2020-08-06] MEDS: VITAMIN D 5,000 UNIT CAP PO SCH (09:56)
--- NOTE | 2020-08-06 12:43 | P.PN ---
Subjective Date of Service: 08/06/20 Chief Complaint: Drowsiness, shortness of breath, Patient is needing significant assistance for transfer He has been weaned off oxygen. Physical Examination - Vital Signs Temperature: 98.6 F Blood Pressure: 174/77 Pulse: 66 Respirations: 18 Pulse Ox (%): 94 - Physical Exam General: Other (Awake, a bit confused.) HEENT: Mucous membr. moist/pink Neck: Supple Respiratory: Clear to auscultation bilaterally, Normal air movement Cardiovascular: No edema, Regular rate/rhythm, Normal S1 S2 Gastrointestinal: Soft and benign, Non-distended, No tenderness Musculoskeletal: No swelling Integumentary: No rashes Neurological: Normal strength at 5/5 x4 extr Assessment And Plan - Current Problems (Diagnosis) (1) Hyperkalemia Current Visit: Yes Status: Acute (2) End stage renal disease on dialysis Current Visit: No Status: Acute (3) Type 2 diabetes mellitus Current Visit: Yes Status: Acute (4) Liver cirrhosis Onset Date: 03/13/18 Current Visit: No Status: Chronic Qualifiers: (5) HTN (hypertension) Current Visit: No Status: Chronic Qualifiers: - Plan Hyperkalemia has resolved. Nephrology is following for hemodialysis. No systemic signs of infection. Blood culture: No growth to date. Home antihypertensives resumed. Blood pressure is elevated. Monitor blood pressure Insulin sliding scale for glucose management. PT to evaluate.
[2020-08-06] MEDS ORDERED: EPOETIN ALFA-EPBX 10,000 UNIT/ML VIAL SQ ONE (12:55)
[2020-08-06] MEDS ORDERED: ENALAPRILAT 1.25 MG/ML VIAL IV PRN (12:57)
--- NOTE | 2020-08-06 13:04 | P.PN ---
Date of Service: 08/05/20 Vital Signs Temp Pulse Resp BP Pulse Ox 98.6 F 66 18 174/77 H 94 08/06/20 12:51 08/06/20 12:51 08/06/20 12:51 08/06/20 12:51 08/06/20 12:51 Medications Albuterol Sulfate (Albuterol 2.5 Mg/3 Ml Neb Soraida) 2.5 mg NEB Q6HP PRN PRN Reason: SHORTNESS OF BREATH Aspirin (Aspirin 81 Mg Chewable Tablet) 81 mg PO DAILY [facility] Last Admin: 08/06/20 09:55 Dose: 81 mg Documented by: Atenolol (Atenolol 50 Mg Tab) 50 mg PO BEDTIME RODNEY Atorvastatin Calcium (Atorvastatin 40 Mg Tab) 40 mg PO BEDTIME RODNEY Calcitriol (Calcitrol 0.25 Mcg Cap) 0.5 mcg PO DAILY [facility] Last Admin: 08/06/20 09:55 Dose: 0.5 mcg Documented by: Cholecalciferol (Vitamin D 5,000 Unit Cap) 5,000 unit PO DAILY [facility] Last Admin: 08/06/20 09:56 Dose: 5,000 unit Documented by: Clopidogrel Bisulfate (Clopidogrel 75 Mg Tablet) 75 mg PO DAILY [facility] Coenzyme Q10 (Coenzyme Q10- 200 Mg Cap) 200 mg PO DAILY [facility] Last Admin: 08/06/20 09:56 Dose: 200 mg Documented by: Collagenase (Collagenase 30 Gm Ointment) 1 appl TOP DAILY [facility] Last Admin: 08/06/20 09:53 Dose: 1 appl Documented by: Emollient Gel (Medihoney 44 Ml Topical Tube) 1 appl TOP DAILY [facility] Last Admin: 08/06/20 09:54 Dose: 1 appl Documented by: Enalaprilat (Enalaprilat 1.25 Mg/Ml Vial) 2.5 mg IV Q6H PRN PRN Reason: HTN Epoetin Ciaran (Epoetin 4,000 Unit/Ml Vial) 4,000 unit IV EVERY HD [facility] Last Admin: 08/05/20 13:15 Dose: 4,000 unit Documented by: Heparin Sodium (Porcine) (Heparin 1,000 Unit/Ml Vial) 6,000 unit IV EVERY HD PRN PRN Reason: AFTER EACH Last Admin: 08/05/20 13:48 Dose: 6,000 unit Documented by: Home Med (Bacillus Coagulans/Vitamin D3 [Probiotic 2 Billion Gummies]) 2 tab PO DAILY [facility] Last Admin: 08/06/20 09:00 Dose: Not Given Documented by: Home Med (Insulin Glargine,Hum.Rec.Anlog [Mikakrystle Soraidarajwinder]) 85 units SQ DAILY [facility] Home Med (Citalopram Hydrobromide [Citalopram Hbr]) 20 mg PO DAILY [facility] Albumin Human (Albumin 25%) 50 mls @ 100 mls/hr IV EVERY HD [facility] Last Admin: 08/04/20 03:03 Dose: 50 mls Documented by: Insulin Human Regular (Insulin -Regular Human 50 Unit/0.5 Ml Ml) 0 unit SQ ACHS [facility]; Protocol Last Admin: 08/06/20 11:30 Dose: Not Given Documented by: Ipratropium [place] (Ipratropium Brom 0.5mg/2.5ml) 0.5 mg NEB [id number] [facility] Last Admin: 08/06/20 08:00 Dose: Not Given Documented by: Isosorbide Mononitrate (Isosorbide [place] Sr 60 Mg Tab) 60 mg PO DAILY [facility] Levetiracetam (Levetiracetam 500 Mg Tab) 250 mg PO BID [facility] Last Admin: 08/06/20 09:55 Dose: 250 mg Documented by: Lisinopril (Lisinopril 10 Mg Tab) 20 mg PO DAILY [facility] Mannitol (Mannitol 25% 12.5 Gm/50 Ml Vial) 12.5 gm IV EVERY HD PRN PRN Reason: Titrate to SBP (MUST DEFINE) Pantoprazole Sodium (Pantoprazole 40mg Tablet) 40 mg PO DAILY [facility]; Protocol Last Admin: 08/06/20 09:55 Dose: 40 mg Documented by: Sevelamer Carbonate (Sevelamer Carbonate 800 Mg Tablet) 800 mg PO TIDWM [facility] Last Admin: 08/06/20 12:00 Dose: Not Given Documented by: Sodium Chloride (Flush Normal Saline 10 Ml) 10 ml IV BID [facility] Last Admin: 08/06/20 09:00 Dose: 10 ml Documented by: Vitamin B Complex/Vit C/Folic Acid (Multivitamins,Therapeut 1 Tab) 1 tab PO DAILY [facility] Assessment/ Plan: Nephrology CPS stable without CP or SOB. No acute events overnight. Improving mental status today. +Nausea Vitals, medications, blood work and imaging reviewed in the chart. General: In no apparent distress, Other (Poorly responsive) HEENT: Atraumatic Neck: Supple, JVD distended Respiratory: Clear to auscultation bilaterally Cardiovascular: Regular rate/rhythm, Edema Gastrointestinal: Soft and benign, Distended Musculoskeletal: No clubbing, No contractures Integumentary: No rashes, No cyanosis, Diabetic ulcer Blood work reviewed in the chart. Imagings Data: EXAM DESCRIPTION: RAD - Foot Right 2 View - 08/04/2020 11:59 am CLINICAL HISTORY: r/u osteomyelitis, lateral foot wound, foot pain COMPARISON: Foot Right 3 View dated 04/24/2020; Foot Right 3 View dated 04/22/2020 FINDINGS: Transverse fracture is present in the proximal shaft of the fifth proximal phalanx. Minimal angulation and very minimal 1 mm lateral displacement. No other fracture changes are seen. No significant joint space degenerative change. History indicates wound is the lateral right foot mid metatarsal level. Fifth metatarsal shows no destructive change. No air or foreign body in the soft tissues. IMPRESSION: No osteomyelitis findings. Osteomyelitis can exist prior to radiographic bone destruction. Fracture of the right fifth proximal phalanx as detailed. Conclusions/Impression: ESRD -Repeat acute HD ordered Hyperkalemia -Acute HD ordered HTN with CKD/ CHF -Acute HD with UF Acute on chronic diastolic CHF -Acute HD with UF Acute respiratory failure with hypercarbia -Continue CPAP as needed DM II with CKD, Polyneuropathy -RISS Moderate malnutrition -Encourage nutrition -Continue Nephrovite Anemia in CKD -Continue Retacrit ZACH/ Secondary HyperPTH -Continue Renvela -Continue Cholecalciferol and Calcitriol Toxic metabolic encephalopathy -Acute HD ordered Case reviewed with Dr. Barnett
--- NOTE | 2020-08-06 13:07 | P.PN ---
Date of Service: 08/06/20 Vital Signs Temp Pulse Resp BP Pulse Ox 98.6 F 66 18 174/77 H 94 08/06/20 12:51 08/06/20 12:51 08/06/20 12:51 08/06/20 12:51 08/06/20 12:51 Medications Albuterol Sulfate (Albuterol 2.5 Mg/3 Ml Neb Soraida) 2.5 mg NEB Q6HP PRN PRN Reason: SHORTNESS OF BREATH Aspirin (Aspirin 81 Mg Chewable Tablet) 81 mg PO DAILY [facility] Last Admin: 08/06/20 09:55 Dose: 81 mg Documented by: Atenolol (Atenolol 50 Mg Tab) 50 mg PO BEDTIME RODNEY Atorvastatin Calcium (Atorvastatin 40 Mg Tab) 40 mg PO BEDTIME RODNEY Calcitriol (Calcitrol 0.25 Mcg Cap) 0.5 mcg PO DAILY [facility] Last Admin: 08/06/20 09:55 Dose: 0.5 mcg Documented by: Cholecalciferol (Vitamin D 5,000 Unit Cap) 5,000 unit PO DAILY [facility] Last Admin: 08/06/20 09:56 Dose: 5,000 unit Documented by: Clopidogrel Bisulfate (Clopidogrel 75 Mg Tablet) 75 mg PO DAILY [facility] Coenzyme Q10 (Coenzyme Q10- 200 Mg Cap) 200 mg PO DAILY [facility] Last Admin: 08/06/20 09:56 Dose: 200 mg Documented by: Collagenase (Collagenase 30 Gm Ointment) 1 appl TOP DAILY [facility] Last Admin: 08/06/20 09:53 Dose: 1 appl Documented by: Emollient Gel (Medihoney 44 Ml Topical Tube) 1 appl TOP DAILY [facility] Last Admin: 08/06/20 09:54 Dose: 1 appl Documented by: Enalaprilat (Enalaprilat 1.25 Mg/Ml Vial) 2.5 mg IV Q6H PRN PRN Reason: HTN Epoetin Ciaran (Epoetin 4,000 Unit/Ml Vial) 4,000 unit IV EVERY HD [facility] Last Admin: 08/05/20 13:15 Dose: 4,000 unit Documented by: Heparin Sodium (Porcine) (Heparin 1,000 Unit/Ml Vial) 6,000 unit IV EVERY HD PRN PRN Reason: AFTER EACH Last Admin: 08/05/20 13:48 Dose: 6,000 unit Documented by: Home Med (Bacillus Coagulans/Vitamin D3 [Probiotic 2 Billion Gummies]) 2 tab PO DAILY [facility] Last Admin: 08/06/20 09:00 Dose: Not Given Documented by: Home Med (Insulin Glargine,Hum.Rec.Anlog [Mikakrystle Soraidarajwinder]) 85 units SQ DAILY [facility] Home Med (Citalopram Hydrobromide [Citalopram Hbr]) 20 mg PO DAILY [facility] Albumin Human (Albumin 25%) 50 mls @ 100 mls/hr IV EVERY HD [facility] Last Admin: 08/04/20 03:03 Dose: 50 mls Documented by: Insulin Human Regular (Insulin -Regular Human 50 Unit/0.5 Ml Ml) 0 unit SQ ACHS [facility]; Protocol Last Admin: 08/06/20 11:30 Dose: Not Given Documented by: Ipratropium [place] (Ipratropium Brom 0.5mg/2.5ml) 0.5 mg NEB [id number] [facility] Last Admin: 08/06/20 08:00 Dose: Not Given Documented by: Isosorbide Mononitrate (Isosorbide [place] Sr 60 Mg Tab) 60 mg PO DAILY [facility] Levetiracetam (Levetiracetam 500 Mg Tab) 250 mg PO BID [facility] Last Admin: 08/06/20 09:55 Dose: 250 mg Documented by: Lisinopril (Lisinopril 10 Mg Tab) 20 mg PO DAILY [facility] Mannitol (Mannitol 25% 12.5 Gm/50 Ml Vial) 12.5 gm IV EVERY HD PRN PRN Reason: Titrate to SBP (MUST DEFINE) Pantoprazole Sodium (Pantoprazole 40mg Tablet) 40 mg PO DAILY [facility]; Protocol Last Admin: 08/06/20 09:55 Dose: 40 mg Documented by: Sevelamer Carbonate (Sevelamer Carbonate 800 Mg Tablet) 800 mg PO TIDWM [facility] Last Admin: 08/06/20 12:00 Dose: Not Given Documented by: Sodium Chloride (Flush Normal Saline 10 Ml) 10 ml IV BID [facility] Last Admin: 08/06/20 09:00 Dose: 10 ml Documented by: Vitamin B Complex/Vit C/Folic Acid (Multivitamins,Therapeut 1 Tab) 1 tab PO DAILY [facility] Assessment/ Plan: Nephrology CPS stable without CP or SOB. No acute events overnight. Improving mental status. +Nausea with anorexia Vitals, medications, blood work and imaging reviewed in the chart. General: In no apparent distress, Other (Poorly responsive) HEENT: Atraumatic Neck: Supple, JVD distended Respiratory: Clear to auscultation bilaterally Cardiovascular: Regular rate/rhythm, Edema Gastrointestinal: Soft and benign, Distended Musculoskeletal: No clubbing, No contractures Integumentary: No rashes, No cyanosis, Diabetic ulcer Blood work reviewed in the chart. Imagings Data: EXAM DESCRIPTION: RAD - Foot Right 2 View - 08/04/2020 11:59 am CLINICAL HISTORY: r/u osteomyelitis, lateral foot wound, foot pain COMPARISON: Foot Right 3 View dated 04/24/2020; Foot Right 3 View dated 04/22/2020 FINDINGS: Transverse fracture is present in the proximal shaft of the fifth proximal phalanx. Minimal angulation and very minimal 1 mm lateral displacement. No other fracture changes are seen. No significant joint space degenerative change. History indicates wound is the lateral right foot mid metatarsal level. Fifth metatarsal shows no destructive change. No air or foreign body in the soft tissues. IMPRESSION: No osteomyelitis findings. Osteomyelitis can exist prior to radiographic bone destruction. Fracture of the right fifth proximal phalanx as detailed. Conclusions/Impression: ESRD -Next HD Friday Hyperkalemia HTN with CKD/ CHF -HD TIW -Increase Lisinopril -Enalapril prn for HTN Acute on chronic diastolic CHF -Low sodium diet Acute respiratory failure with hypercarbia -Continue CPAP as needed DM II with CKD, Polyneuropathy -RISS Moderate malnutrition -Encourage nutrition -Continue Nephrovite Anemia in CKD -Continue Retacrit ZACH/ Secondary HyperPTH -Continue Renvela -Continue Cholecalciferol and Calcitriol Toxic metabolic encephalopathy -HD TIW Case reviewed with Dr. Barnett
[2020-08-06 14:09] VITALS: O2SAT 98
--- NOTE | 2020-08-06 17:56 | P.PN ---
Subjective Date of Service: 08/06/20 Chief Complaint: Drowsiness, shortness of breath, Subjective: No new changes, No C/O voiced, Doing well Physical Examination - Vital Signs Temperature: 98.2 F Blood Pressure: 175/80 Pulse: 69 Respirations: 16 Pulse Ox (%): 98 - Physical Exam General: Alert, Oriented x3 HEENT: Atraumatic, Normocephalic Neck: Supple Respiratory: Diminished Cardiovascular: Other (stan lower extremity edema ) Gastrointestinal: Soft and benign, Non-distended Musculoskeletal: Other (Clean dry dressing noted to right foot ) Neurological: Normal speech, Normal affect Assessment And Plan - Plan Right foot wound. Pending wound vac Strict glucose monitoring for optimal wound healing. Medical management per primary care team Plan of care discussed with Dr. Perez Thank you for consultation. Physician Review Additional Text: Plan
[2020-08-06] MEDS ORDERED: LORAZEPAM 1 MG TABLET PO ONE (18:31)
[2020-08-06] MEDS ORDERED: MINERAL OIL ENEMA 135 ML BTL PR ONE (19:00)
--- NOTE | 2020-08-06 19:18 | RAD REPORT ---
EXAM DESCRIPTION: RAD - Abdomen 1 View (KUB) - 08/06/2020 7:10 pm CLINICAL HISTORY: Constipation Pain COMPARISON: <Comparisons> FINDINGS: The bowel gas pattern is non-obstructive. No evidence of free air or pneumatosis. No suspi cious calcifications. Cholecystectomy clips. No significant bony findings. Mild fecal retention. IMPRESSION: Mild fecal retention throughout the colon.
--- NOTE | 2020-08-06 20:02 | RAD REPORT ---
EXAM DESCRIPTION: CT - Head Brain Wo Cont - 08/06/2020 7:44 pm CLINICAL HISTORY: Fall, head injury Fall, trauma, head injury COMPARISON: Head Brain Wo Cont dated 03/24/2020; Head Brain Wo Cont dated 10/14/2019 TECHNIQUE: All CT scans are performed using dose optimization technique as appropriate and may inclu de automated exposure control or mA/KV adjustment according to patient size. FINDINGS: No intracranial hemorrhage, hydrocephalus or extra-axial fluid collection.Mild generalized brain atrophy is present. Area of gliosis is seen right cerebellar hemisphere and left occipital reg ion, unchanged. No areas of brain edema or evidence of midline shift. Mild vertebral atherosclerosis. The paranasal sinuses and mastoids are clear. The calvarium is intact. IMPRESSION: No acute intracranial abnormality.
[2020-08-06 20:06] VITALS: BP 180/90
[2020-08-06 20:45] VITALS: TEMP 97.3
[2020-08-06] MEDS ORDERED: SENOSIDES 8.6 MG TAB PO SCH (21:00)
[2020-08-06] MEDS ORDERED: ATORVASTATIN 40 MG TAB PO SCH (21:00)
[2020-08-06] MEDS ORDERED: POLYETHYL GLY 3350 17 GM/DOSE PO SCH (21:00)
[2020-08-06] MEDS ORDERED: atenoloL 50 MG TAB PO SCH (21:00)
[2020-08-07] MEDS ORDERED: CLOPIDOGREL 75 MG TABLET PO SCH (09:00)
[2020-08-07] MEDS ORDERED: CITALOPRAM 10 MG TABLET PO SCH (09:00)
[2020-08-07] MEDS ORDERED: TOUJEO SOLOSTAR 300 UNITS/ML SQ SCH (09:00)
[2020-08-07] MEDS ORDERED: lisinopriL 10 MG TAB PO SCH ×2 (09:00)
[2020-08-07] MEDS ORDERED: MULTIVITAMINS,THERAPEUT 1 TAB PO SCH (09:00)
[2020-08-07] MEDS ORDERED: ISOSORBIDE MONO SR 60 MG TAB PO SCH (09:00)
[2020-08-07 11:40] LABS: HBsAG Nonreactive (Nonreactive)
== END 2020-08-06 21:21 | disposition home or self-care (01) | DRG 291 ==
LOC: ER 10:18 → ERHOLD 17:13 → 2ND 18:36 → OBSVTOIN 08-04 12:52
PROVIDERS: ADMIT Internal Medicine; ATTEND Internal Medicine
PROC: 5A1D70Z Performance of Urinary Filtration, Intermittent, Less than 6 Hours Per Day (ICD-10-PCS; principal; 2020-08-04)
PROC: 5A09457 Assistance with Respiratory Ventilation, 24-96 Consecutive Hours, Continuous Positive Airway Pressure (ICD-10-PCS; 2020-08-04)
DX: I13.2 Hypertensive heart and chronic kidney disease with heart failure and with stage 5 chronic kidney disease, or end stage renal disease (principal); N18.6 End stage renal disease; I50.33 Acute on chronic diastolic (congestive) heart failure; J96.02 Acute respiratory failure with hypercapnia; G92 Toxic encephalopathy; E44.0 Moderate protein-calorie malnutrition; N25.81 Secondary hyperparathyroidism of renal origin; E87.5 Hyperkalemia; E11.22 Type 2 diabetes mellitus with diabetic chronic kidney disease; E11.42 Type 2 diabetes mellitus with diabetic polyneuropathy; E11.51 Type 2 diabetes mellitus with diabetic peripheral angiopathy without gangrene; E78.5 Hyperlipidemia, unspecified; F17.200 Nicotine dependence, unspecified, uncomplicated; K74.60 Unspecified cirrhosis of liver; G40.909 Epilepsy, unspecified, not intractable, without status epilepticus; I25.10 Atherosclerotic heart disease of native coronary artery without angina pectoris; D63.1 Anemia in chronic kidney disease; N25.0 Renal osteodystrophy; I25.2 Old myocardial infarction; E66.9 Obesity, unspecified; Z68.32 Body mass index [BMI] 32.0-32.9, adult; Z88.5 Allergy status to narcotic agent; Z79.02 Long term (current) use of antithrombotics/antiplatelets; Z79.4 Long term (current) use of insulin; Z79.899 Other long term (current) drug therapy; Z86.73 Personal history of transient ischemic attack (TIA), and cerebral infarction without residual deficits; Z99.2 Dependence on renal dialysis; Z91.15 Patient's noncompliance with renal dialysis; Z79.82 Long term (current) use of aspirin; Z90.49 Acquired absence of other specified parts of digestive tract; Z20.822 Contact with and (suspected) exposure to COVID-19
CPT/HCPCS: 36415; 70450; 74018; 80048; 80053; 80069; 82140; 82805; 82947; 83036; 83735; 84100; 85025; 86317; 87040; 87340; 90935; 94660; 96365; 96366; 96375; 97161; 97530; 99285; G0378; J0610; J1644; J3590; P9047; Q5105; Q5106; U0003

== ENCOUNTER 2020-09-19 10:10 | Inpatient (IN) | payer MEDICARE ==
--- OUTSIDE RECORDS SUMMARY | 2020-09-19 10:15 | XMS REPORT | Continuity of Care Document ---
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 Item Value Reference Range Interpretation Comments POC-GLUCOSE METER 343 mg/dL 70-110 H Notified Rohith Harrison MD/TESTED ([facility]) (test code = AT [place] [address]) [facility] 7703 0 RAD, CHEST, 1 VIEW, NON [id number] 02:27:00Reason for exam:->mediastinal wideningShould this be performed [...] tissues and osseous structures are intact. Signed: Shaeffer, Wilmer MDReport Verified Date/Time: 01/07/2019 02:27:45 POCT-GLUCOSE [id number] 01:57:00 Test Item Value Reference Range Interpretation Comments POC-GLUCOSE METER 369 mg/dL 70-110 H TESTED AT [facility] 67 ([facility]) (test code = [place] [facility] 1538) [id number] POCT-GLUCOSE [id number] 01:06:00 Test Item Value Reference Range Interpretation Comments POC-GLUCOSE METER 395 mg/dL 70-110 H Notified R Christy BOSS/TESTED ([facility]) (test code = AT [facility] [address] [place] [address] 1538) [facility] 7703 0 TROPONIN [id number] 00:36:00 Test Item Value Reference Range Interpretation Comments TROPONIN I ([facility]) (test code = 0.01 ng/mL 0.00-0.03 [...] Reference Range Interpretation Comments B-TYPE NATRIURETIC PEPTIDE ([facility]) 151 pg/mL 0-100 H (test code = 700) [id number] 00:19:00 Test Item Value Reference Range Interpretation Comments PARTIAL THROMBOPLASTIN TIME 28.2 seconds 22.5-36.0 ([facility]) (test code = 760) Prior to initiating heparinPOCT-GLUCOSE [id number] 00:16:00 Test Item Value Reference Range Interpretation Comments POC-GLUCOSE METER 413 mg/dL 70-110 HH TESTED AT [facility] 6720 ([facility]) (test code = [place] [facility] 1538) [address] POCT-GLUCOSE [id number] 23:10:00 Test Item Value Reference Range Interpretation Comments POC-GLUCOSE METER 452 mg/dL 70-110 HH Notified Rohith Harrison MD/TESTED ([facility]) (test code = AT [facility] [address] [place] [address]) [facility] 7703 0 POCT-GLUCOSE [id number] 22:06:00 Test Item Value Reference Range Interpretation Comments POC-GLUCOSE METER 383 mg/dL 70-110 H TESTED AT [facility] 6720 ([facility]AS[facility]) (test code = [place] [facility] 1538) [address] CT, BRAIN, WITHOUT [id number] 21:38:00FINAL REPORT CT Head without contrast CLINICAL [...] Kline Verified Date/Time: 01/06/2019 21:38:52 BASI METABOLIC [id number] 21:12:00 Test Item Value Reference Range Interpretation [...] NOT APPLICABLE FOR DIALYSIS PATIEN TS. HEMOGLOBIN [id number] 20:17:00 Test Item Value Reference Range Interpretation Comments HEMOGLOBIN A1C (BEAKER) (test code = 11.9 % 4.3-6.1 H 368) TROPONIN [id number] 19:52:00 Test Item Value Reference Range Interpretation [...] acute neurological disease, and persistent tachyarrhythmia.HEPATIC FUNCTION [id number] 19:46:00 Test Item Value Reference Range Interpretation [...] (test code = 347) hemolyzed Specimen moderately [id number] 19:32:00 Test Item Value Reference Range Interpretation Comments PARTIAL THROMBOPLASTIN TIME 28.1 seconds 22.5-36.0 (BEAKER) (test code = 760) PROTHROMBIN TIME/[id number] 19:31:00 Test Item Value Reference Range Interpretation [...] mechanical heart valves.CBC W/PLT COUNT & AUTO [id number] 19:25:00 Test Item Value Reference Range Interpretation [...] PERCENT (BEAKER) (test code = 2801) POCT-GLUCOSE [id number] 17:51:00 Test Item Value Reference Range Interpretation Comments POC-GLUCOSE METER 342 mg/dL 70-110 H Notified R N /TESTED (BEAKER) (test code = AT [facility] [address] [place] [address]) [place] [address]
[2020-09-19 10:35] LABS: Absolute Lymphocytes (CBC) 2.6 K/uL (0.7-4.9); Basophils % 1.2 % (0-1.3); Hematocrit 32.1 % (39.6-49.0); Lymphocytes % 30.3 % (15.3-44.8); RBC Red Blood Cell Count 3.31 M/uL (4.33-5.43)
[2020-09-19 10:46] LABS: Protime INR 0.94
--- NOTE | 2020-09-19 11:02 | RAD REPORT ---
EXAM DESCRIPTION: Noah Single View09/19/2020 10:47 am CLINICAL HISTORY: Syncope/shortness of breath COMPARISON: 2019 FINDINGS: The lungs appear clear of acute infiltrate. The heart is normal size. 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
--- NOTE | 2020-09-19 11:14 | RAD REPORT ---
EXAM DESCRIPTION: CT - Head Brain Wo Cont - 09/19/2020 10:36 am CLINICAL HISTORY: Syncope COMPARISON: July 2020 TECHNIQUE: Computed axial tomography of the head was obtained. IV contrast was not requested. All CT scans are performed using dose optimization technique as appropriate and may include automated exposure control or mA/KV adjustment according to patient size. FINDINGS: An intracranial bleed is not seen . The ventricles are normal in caliber. No extra-axial fluid collection is noted. Low-density left occipital lobe probably an old infarction. Fluid within the sinuses/ mastoids is not seen. IMPRESSION: No acute intracranial abnormality is seen. If patient's symptoms persist MRI of the bra in would be recommended.
[2020-09-19 11:35] LABS: ALT/SGPT 38 U/L (12-78); AST/SGOT 30 U/L (15-37); Albumin 2.8 g/dL (3.4-5.0); Alkaline Phosphatase 157 U/L (45-117); BUN Blood Urea Nitrogen 55 mg/dL (7-18); Bicarbonate 25 mmol/L (21-32); Bilirubin Direct 0.1 mg/dL (0-0.2); Bilirubin Total 0.3 mg/dL (0.2-1.0); Glucose Level 151 mg/dL (74-106); Magnesium 2.4 mg/dL (1.8-2.4); NT PRO-BNP 9274 pg/mL (<125); Potassium 4.6 mmol/L (3.5-5.1); Sodium Level 141 mmol/L (136-145); Troponin (Emerg Dept Use Only) < 0.02 ng/mL (0.0-0.045)
--- NOTE | 2020-09-19 12:37 | EDPHYS ---
Physician Documentation [facility] Name: Wero Kwong Age: 55 yrs Sex: Male : 1965 Arrival Date: 09/19/2020 Time: 10:21 Bed 3 Private MD: ED Physician Osito Rehman HPI: 09/19 10:25 This 55 yrs old Male presents to ER via EMS with complaints of unresponsive. pm1 10:25 The patient presents with decreased responsiveness. Onset: The symptoms/episode pm1 began/occurred just prior to arrival. Possible causes: possibly from choking and coughing episode. Patient was sitting in his car with his . They just picked up some fast food and were eating it in the car. He was eating his food and then started drinking his soda. Then he started coughing because he possibly choked. was trying to help him by hitting his chest with her hand from the recycle driver seat. He became unresponsive and she called EMS. They arrived within the 1-2 minutes. EMS reports that he was agonal breathing. They were not sure if he had a pulse or not. 10 seconds of compressions and he was alert and awake x 4. Historical: - Allergies: 10:25 Codeine; jl7 10:25 Morphine; jl7 - Home Meds: 10:25 calcium acetate 667 mg Oral cap 1 caps twice a day [Active]; citalopram 20 mg tab 1 tab jl7 once daily [Active]; clonazepam 0.5 mg Oral tab as needed [Active]; gabapentin 300 mg Oral cap 3 caps twice a day [Active]; isosorbide mononitrate 60 mg Oral Tb24 [Active]; levetiracetam 500 mg Oral tab 1 tab 2 times per day [Active]; lisinopril 10 mg Oral tab 1 tab once daily [Active]; methocarbamol 500 mg Oral tab as needed [Active]; metoclopramide HCl 10 mg Oral tab [Active]; Nephro-Steven 0.8 mg Oral tab daily [Active]; Novolog 100 unit/mL Sub-Q soln three times a day [Active]; ondansetron HCl 8 mg Oral tab 1 tab every 8 hours [Active]; pantoprazole 40 mg Oral TbEC 1 tab once daily [Active]; sevelamer carbonate 800 mg Oral tab 1 tab twice a day [Active]; simvastatin 40 mg Oral tab 1 tab once daily [Active]; Toujeo SoloStar 300 unit/mL (1.5 mL) subcutaneous inpn 65 unit daily [Active]; tramadol 50 mg Oral tab 1 tab as needed [Active]; - PMHx: 10:25 CAD; CHF; Cirrhosis; CVA; Diabetes - IDDM; dialysis (); High Cholesterol; jl7 Hypertension; kidney failure; Myocardial infarction; neuropathy; Seizures; - Immunization history:: Adult Immunizations up to date, Client reports receiving the 2nd dose of the Covid vaccine. - Social history:: Smoking status: unknown. ROS: 10:25 Constitutional: Negative for fever, chills, and weight loss, Neck: Negative for injury, pm1 pain, and swelling, Cardiovascular: Negative for chest pain, palpitations, and edema. 10:25 ENT: Negative for injury, pain, and discharge, Respiratory: Negative for shortness of breath, cough, wheezing, and pleuritic chest pain, Abdomen/GI: Negative for abdominal pain, nausea, vomiting, diarrhea, and constipation, Back: Negative for injury and pain, MS/Extremity: Negative for injury and deformity, Skin: Negative for injury, rash, and discoloration, Neuro: Negative for headache, weakness, numbness, tingling, and seizure. 10:25 Eyes: Positive for baseline bilateral vision loss, Negative for pain. Exam: 10:25 Constitutional: This is a well developed, well nourished patient who is awake, alert, pm1 and in no acute distress. Head/Face: Normocephalic, atraumatic. 10:25 Neck: Trachea midline, no thyromegaly or masses palpated, and no cervical lymphadenopathy. Supple, full range of motion without nuchal rigidity, or vertebral point tenderness. No Meningismus. 10:25 Back: No spinal tenderness. No costovertebral tenderness. Full range of motion. Skin: Warm, dry with normal turgor. Normal color with no rashes, no lesions, and no evidence of cellulitis. MS/ Extremity: Pulses equal, no cyanosis. Neurovascular intact. Full, normal range of motion. 10:25 Eyes: Periorbital structures: appear normal, Pupils: no acute changes, Extraocular movements: intact throughout. 10:25 ENT: Exam is negative for acute changes, Mouth: Oral mucosa: normal, pink and intact, moist, Posterior pharynx: is normal, airway is patent, no acute changes, Airway: normal, Tonsils: are normal in appearance. 10:25 Cardiovascular: Rate: normal, Rhythm: regular, Pulses: no pulse deficits are appreciated. 10:25 Respiratory: the patient does not display signs of respiratory distress, Breath sounds: are clear throughout. 10:25 Abdomen/GI: Inspection: obese Palpation: abdomen is soft and non-tender, in all quadrants. 10:25 Neuro: Orientation: is normal, Mentation: is normal, Motor: is normal, moves all fours, Sensation: is normal, no obvious gross deficits. Vital Signs: 10:25 BP 101 / 72; Pulse 65; Resp 18 S; Pulse Ox 84% on R/A; jl7 13:38 BP 133 / 81; Pulse 56; Resp 13; Pulse Ox 100% 2 lpm ; jl7 17:15 BP 162 / 92; Pulse 57; Resp 18; Pulse Ox 98% on 3 lpm NC; tr6 19:01 BP 155 / 91; Pulse 59; Resp 18; Pulse Ox 99% on R/A; tr6 20:04 BP 115 / 70; Pulse 60; Resp 16; Pulse Ox 97% on R/A; jm8 MDM: 10:22 Patient medically screened. pm1 12:06 Counseling: I had a detailed discussion with the patient and/or guardian regarding: the pm1 historical points, exam findings, and any diagnostic results supporting the discharge/admit diagnosis, lab results, radiology results, the need for further work-up and treatment in the hospital. 12:30 Physician consultation: Alejandra Theodore was called at 12:34, was contacted at 12:30, pm1 regarding admission, patient's condition, and will see patient in ED. 12:33 Data reviewed: vital signs. pm1 09/19 10:24 Order name: Basic Metabolic Panel; Complete Time: 11:40 pm09/19 10:24 Order name: CBC with Diff; Complete Time: 11:13 pm09/19 10:24 Order name: LFT's; Complete Time: 11:40 pm09/19 10:24 Order name: Magnesium; Complete Time: 11:40 pm09/19 10:24 Order name: NT PRO-BNP; Complete Time: 11:40 pm09/19 10:24 Order name: PT-INR; Complete Time: 11:13 pm09/19 10:24 Order name: Troponin (emerg Dept Use Only); Complete Time: 11:40 pm09/19 10:24 Order name: Blood Culture Adult (2) pm09/19 10:32 Order name: Glucose, Ancillary Testing; Complete Time: 11:13 EDAZ 09/19 12:12 Order name: SARS-COV-2 RT PCR; Complete Time: 12:33 EDMS 09/19 13:46 Order name: ABG Arterial Blood Gas; Complete Time: 17:40 EDAZ 09/19 13:52 Order name: Protime (+INR); Complete Time: 16:57 EDAZ 09/19 13:52 Order name: Basic Metabolic Panel [facility] 09/19 10:24 Order name: XRAY Chest (1 view); Complete Time: 11:13 pm09/19 10:24 Order name: CT Head Brain wo Cont; Complete Time: 11:21 pm09/19 13:52 Order name: Basic Metabolic Panel [facility] 09/19 13:52 Order name: Troponin I [facility] 09/19 13:52 Order name: Troponin I; Complete Time: 16:57 EDAZ 09/19 13:52 Order name: Troponin I [facility] 09/19 13:52 Order name: Troponin I [facility] 09/19 13:56 Order name: Carotid Artery Bilateral; Complete Time: 17:40 [facility] 09/19 13:58 Order name: ERT ORTHOSTATIC V/S [facility] 09/19 13:58 Order name: ERT ORTHOSTATIC V/S [facility] 09/19 14:22 Order name: Brain Wo Cont; Complete Time: 16:57 EDAZ 09/19 14:50 Order name: Ammonia; Complete Time: 16:57 EDAZ 09/19 14:50 Order name: Urinalysis W/Microscopic EDAZ 09/19 14:51 Order name: Urine Drug Screen; Complete Time: 17:14 [facility] 09/19 10:24 Order name: EKG; Complete Time: 10:25 pm09/19 10:24 Order name: Cardiac monitoring; Complete Time: 10:28 pm09/19 10:24 Order name: EKG - Nurse/Tech; Complete Time: 10:28 pm09/19 10:24 Order name: IV Saline Lock; Complete Time: : pm09/19 10:24 Order name: Labs collected and sent; Complete Time: : pm09/19 10:24 Order name: O2 Per Protocol; Complete Time: : pm09/19 10:24 Order name: O2 Sat Monitoring; Complete Time: 10: pm09/19 14:04 Order name: NPO EDMS 09/19 14:35 Order name: Echo with Doppler EDMS 09/19 15:10 Order name: Echo with Doppler EDMS Administered Medications: 18:04 Drug: Ativan (LORazepam) 1 mg Route: IVP; Site: right antecubital; ak2 19:56 Follow up: Response: No adverse reaction; RASS: Light sedation (-2) jm8 Disposition: 09/19/20 12:36 Hospitalization ordered by Juancarlos Prince for Observation. Preliminary diagnosis is Syncope and collapse. - Bed requested for Intensive Care Unit. - Status is Observation. jm8 - Condition is Stable. - Problem is new. - Symptoms have improved. Addendum: 09/25/2020 07:58 Co-signature as Attending Physician, Osito Rehman MD. r n Signatures: Dispatcher [employer] EDAZ Beti Holliday RN HAYLEE dw Osito Rehman MD MD rn Mala, Vaibhav, GAS DISTRIBUTION AND EMERGENCY CLERK-C GAS DISTRIBUTION AND EMERGENCY CLERK-Cla1 Ross Wilson, PE ELECTRICAL ENGINEER PE ELECTRICAL ENGINEER pm1 Stephen Victor, RN RN jl7 Tan Davidson RN RN jm8 Guido Salmon ak2 Corrections: (The following items were deleted from the chart) 09/19 11:08 10:48 CORONAVIRUS+MR.LAB.BRZ ordered. EDMS EDMS 14:04 13:52 Renal ordered. EDMS EDMS 14:22 13:55 Brain With Cont ordered. EDMS EDMS 14:35 13:53 Echo without Doppler (2D) ordered. EDMS EDMS 18:49 12:36 Hospitalization Ordered by Juancarlos Prince DO for Observation. Preliminary diagnosis is Syncope and collapse. Bed requested for Telemetry/MedSurg (observation). Status is Observation. Condition is Stable. Problem is new. Symptoms have improved. pm1 20:32 18:49 09/19/2020 12:36 Hospitalization Ordered by Juancarlos Prince DO for Observation. jm8 Preliminary diagnosis is Syncope and collapse. Bed requested for Intensive Care Unit. Status is Observation. Condition is Stable. Problem is new. Symptoms have improved. dw
--- NOTE | 2020-09-19 12:37 | ER ---
Nurse's Notes [facility] Name: Wero Kwong Age: 55 yrs Sex: Male : 1965 Arrival Date: 09/19/2020 Time: 10:21 Bed 3 Private MD: Diagnosis: Syncope and collapse Presentation: 09/19 10:21 Chief complaint: EMS states: Toned out for unresponsive, pt with agonal respirations on jl7 arrival, pulled out of vehicle, pulseless, CPR done for 10 secs, pt A\T\Ox4, VSS, dialysis T-T-S, last on Friday. Coronavirus screen: Client denies travel out of the [place] in the last 14 days. At this time, the client does not indicate any symptoms associated with coronavirus-19. Ebola Screen: No symptoms or risks identified at this time. Risk Assessment: Do you want to hurt yourself or someone else? Patient reports no desire to harm self or others. Onset of symptoms was September 19, 2020. 10:21 Method Of Arrival: EMS: [facility] 7 10:21 Acuity: [place] 2 jl7 10:25 Initial Sepsis Screen: Does the patient meet any 2 criteria? No. Patient's initial jl7 sepsis screen is negative. Does the patient have a suspected source of infection? No. Patient's initial sepsis screen is negative. Care prior to arrival: CPR manually performed by EMS ROSC after 10 sec of compressions IV initiated. 18 GA, in the right antecubital area, Glucose check: 171. Triage Assessment: 20:03 General: Appears in no apparent distress. comfortable, Behavior is calm, cooperative, jm8 appropriate for age. Historical: - Allergies: 10:25 Codeine; jl7 10:25 Morphine; jl7 - Home Meds: 10:25 calcium acetate 667 mg Oral cap 1 caps twice a day [Active]; citalopram 20 mg tab 1 tab jl7 once daily [Active]; clonazepam 0.5 mg Oral tab as needed [Active]; gabapentin 300 mg Oral cap 3 caps twice a day [Active]; isosorbide mononitrate 60 mg Oral Tb24 [Active]; levetiracetam 500 mg Oral tab 1 tab 2 times per day [Active]; lisinopril 10 mg Oral tab 1 tab once daily [Active]; methocarbamol 500 mg Oral tab as needed [Active]; metoclopramide HCl 10 mg Oral tab [Active]; Nephro-Steven 0.8 mg Oral tab daily [Active]; Novolog 100 unit/mL Sub-Q soln three times a day [Active]; ondansetron HCl 8 mg Oral tab 1 tab every 8 hours [Active]; pantoprazole 40 mg Oral TbEC 1 tab once daily [Active]; sevelamer carbonate 800 mg Oral tab 1 tab twice a day [Active]; simvastatin 40 mg Oral tab 1 tab once daily [Active]; Toujeo SoloStar 300 unit/mL (1.5 mL) subcutaneous inpn 65 unit daily [Active]; tramadol 50 mg Oral tab 1 tab as needed [Active]; - PMHx: 10:25 CAD; CHF; Cirrhosis; CVA; Diabetes - IDDM; dialysis (); High Cholesterol; jl7 Hypertension; kidney failure; Myocardial infarction; neuropathy; Seizures; - Immunization history:: Adult Immunizations up to date, Client reports receiving the 2nd dose of the Covid vaccine. - Social history:: Smoking status: unknown. Screenin:02 Abuse screen: Denies threats or abuse. Denies injuries from another. Nutritional 8 screening: No deficits noted. Tuberculosis screening: No symptoms or risk factors identified. Fall Risk IV access (20 points). Mental Status- Overestimates/Forgets Limitations (15 pts.). Assessment: 13:40 Reassessment: Patient appears in no apparent distress at this time. No changes from 7 previously documented assessment. Pt laying in bed with eyes closed, snoring respiration noted, 100% on 2 lpm NC, pt opens eyes with loud stimuli. 15:28 Reassessment: pt awake screaming that he wants to go home. pt informed that he will be zb admitted and is not happy with the decision. RN spoke with pts and pts aware that pt is admitted. Pain: Denies pain. 15:42 Reassessment: pt to MRI. jl7 Vital Signs: 10:25 BP 101 / 72; Pulse 65; Resp 18 S; Pulse Ox 84% on R/A; jl7 13:38 BP 133 / 81; Pulse 56; Resp 13; Pulse Ox 100% 2 lpm ; jl7 17:15 BP 162 / 92; Pulse 57; Resp 18; Pulse Ox 98% on 3 lpm NC; tr6 19:01 BP 155 / 91; Pulse 59; Resp 18; Pulse Ox 99% on R/A; tr6 20:04 BP 115 / 70; Pulse 60; Resp 16; Pulse Ox 97% on R/A; jm8 Vitals: 19:01 Cardiac Rhythm Assessment Sinus sudeep. tr6 ED Course: 10:21 Patient arrived in ED. jl7 10:21 Ross Wilson NP is PHCP. pm1 10:22 Osito Rehman MD is Attending Physician. pm1 10:23 Triage completed. jl7 10:27 Arm band placed on right wrist. jl7 10:35 CT Head Brain wo Cont In Process Unspecified. EDMS 10:45 XRAY Chest (1 view) In Process Unspecified. EDMS 11:31 Carolyn Patino RN is Primary Nurse. tr6 11:39 Notified Nurse Practitioner and/or Physician Hat Finishing Materials Preparer of a critical lab result(s), ll1 Creatinine 7.42. 12:36 Juancarlos Prince DO is Hospitalizing Provider. pm1 19:16 Primary Nurse role handed off by Carolyn Patino, HAYLEE mw2 20:03 Patient has correct armband on for positive identification. Bed in low position. Call jm8 light in reach. Side rails up X2. Adult w/ patient. 20:31 No provider procedures requiring assistance completed. Patient admitted, IV remains in jm8 place. Administered Medications: 18:04 Drug: Ativan (LORazepam) 1 mg Route: IVP; Site: right antecubital; ak2 19:56 Follow up: Response: No adverse reaction; RASS: Light sedation (-2) 8 Intake: 12:00 IV: 1000ml; Total: 1000ml. jl7 Outcome: 12:36 Decision to Hospitalize by Provider. pm1 20:31 Admitted to ICU accompanied by nurse, via stretcher, on monitor, with chart, Report jm8 called to Mary lElen LEACH 20:31 Condition: stable 20:31 Instructed on the need for admit. 20:31 Critical Care visit due to positive loss of consciousness. 20:32 Patient left the ED. jm8 Signatures: Dispatcher [employer] EDMS Ross Wilson, JULIETH CLAMSHELL ENGINEER pm1 Stephen Victor RN RN jl7 [place], Khushi 2 Radha Reza, RN RN ll1 Olena Chan, RN RN albertob Tan Davidson RN RN jm8 Carolyn Patino, RN RN tr6 Viky, [facility]
[2020-09-19] MEDS ORDERED: ONDANSETRON 4 MG/2 ML VIAL IV PRN (13:47)
[2020-09-19] MEDS ORDERED: ALBUTEROL 2.5 MG/3 ML NEB SOL NEB PRN (13:47)
[2020-09-19] MEDS ORDERED: ACETAMINOPHEN 325 MG TABLET PO PRN (13:56)
[2020-09-19] MEDS: IPRATROPIUM BROM 0.5MG/2.5ML NEB SCH ×2 (14:00→20:08)
--- NOTE | 2020-09-19 14:07 | P.HP ---
Certification for Inpatient Patient admitted to: Observation With expected LOS: <2 Midnights Patient will require the following post-hospital care: None Practitioner: I am a practitioner with admitting privileges, knowledge of patient current condition, hospital course, and medical plan of care. Services: Services provided to patient in accordance with Admission requirements found in Title 42 Section 412.3 of the Code of Federal Regulations Patient History Date of Service: 09/19/20 Reason for admission: Unresponsiveness History of Present Illness: Patient is a 55-year-old male with a past medical history significant for CAD, CHF, ESRD, DM 2, hypertension, [place], seizures who presents with complaint of unresponsiveness. Patient is currently lethargic and unable to provide any meaningful history. Per report from the family, patient was eating at [id number] when patient choked and became unresponsive. Spouse attempted to arouse patient but was unable to. EMS was called and they was conflicting reports regarding patient's pulse. EMS was not sure if patient had a pulse or not. But patient was noted to have agonal breathing. Chest compression was started for about 10-20 seconds and patient was noted to have a pulse. Patient became alert. No other signs and symptoms reported. Symptoms are aggravated or relieved by nothing. Patient was brought to the ER for medical evaluation. Currently patient is lethargic and drowsy. Allergies morphine Allergy (Verified 03/13/18 00:11) Hives/Rash Home Medications: Atenolol [Tenormin] 50 mg PO BEDTIME 04/24/20 Atorvastatin Calcium [Lipitor] 40 mg PO BEDTIME 04/24/20 Citalopram Hydrobromide [Citalopram HBr] 20 mg PO DAILY 04/24/20 Gabapentin 3 tab PO SEECOM 04/24/20 Insulin Aspart [Novolog] 1 unit SQ [facility] 04/24/20 Insulin Glargine,Hum.rec.anlog [Toujeo Solostar] 85 units SQ DAILY 04/24/20 Levetiracetam [Keppra] 250 mg PO BID 04/24/20 Liraglutide [Victoza 2-Willy] 1.2 mg SQ [facility] 04/24/20 Lisinopril [Zestril] 10 mg PO DAILY 04/24/20 Metoclopramide HCl [Reglan] 10 mg PO SEECOM 04/24/20 Pantoprazole [Protonix Tab*] 40 mg PO DAILY 04/24/20 Sevelamer Carbonate 800 mg PO TID 04/24/20 Isosorbide Mononitrate [Isosorbide Mononitrate ER] 60 mg PO DAILY 04/25/20 Clopidogrel Bisulfate [Plavix] 1 tab PO DAILY 08/04/20 Vit B Comp No.3/Folic/C/Biotin [Nephro-Steven Rx Tablet] 1 tab PO DAILY 08/04/20 Bacillus Coagulans/Vitamin D3 [Probiotic 2 Billion Gummies] 2 tab PO DAILY #60 08/05/20 Calcitrol [Rocaltrol*] 0.5 mcg PO DAILY #30 cap 08/05/20 Cholecalciferol (Vitamin D3) [Vitamin D 5,000 IU Cap*] 5,000 unit PO DAILY #30 cap 08/05/20 Collagenase [Santyl Ointment*] 1 appl TOP DAILY #1 tube 08/05/20 Epoetin [Retacrit] 4,000 unit IV EVERY HD vial 08/05/20 Medihoney [Medihoney Woundcare Gel*] 1 appl TOP DAILY #1 tube 08/05/20 Ubidecarenone [Coenzyme Q10*] 200 mg PO DAILY #30 cap 08/05/20 - Past Medical/Surgical History Diabetic: Yes -: History CVA -: Liver cirrhosis with history hepatitis A -: CAD -: Diabetes mellitus type 2, insulin dependent -: CAD with prior [place] -: Diabetic neuropathy, retinopathy -: CHF -: Hyperlipidemia -: seizures -: Cardiac stents -: left acl repair -: Cholecystectomy Psychosocial/ Personal History: Patient lives at home and is . He has no children. - Family History Mother -: Heart disease, Hypertension - Social History Smoking Status: Current every day smoker Smoking therapy provided: No Alcohol use: No CD- Drugs: No Caffeine use: No Place of Residence: Home Review of Systems is unable to be obtained Physical Examination - Physical Exam General: Obese, Other (Lethagic) HEENT: Atraumatic, Mucous membr. moist/pink, EOMI, Sclerae nonicteric Neck: Supple, 2+ carotid pulse no bruit, No LAD, Without JVD or thyroid abnormality Respiratory: Clear to auscultation bilaterally, Normal air movement Cardiovascular: Regular rate/rhythm, Normal S1 S2 Capillary refill: <2 Seconds Gastrointestinal: Normal bowel sounds, No tenderness Musculoskeletal: No tenderness Integumentary: No rashes Neurological: Normal tone, Normal affect Lymphatics: No axilla or inguinal lymphadenopathy External genitalia: Deferred Rectal: Deferred - Studies Laboratory Data (last 24 hrs) 09/19/20 10:27: PT 10.8, INR 0.94 09/19/20 10:27: WBC 8.50, Hgb 10.8 L, Hct 32.1 L, Plt Count 152 09/19/20 10:27: Sodium 141, Potassium 4.6, BUN 55 H, Creatinine 7.42 H*, Glucose 151 H, Magnesium 2.4, Total Bilirubin 0.3, AST 30, ALT 38, Alkaline Phosphatase 157 H Assessment and Plan - Plan --Unresponsiveness. Questionable cardiac arrest vs syncope. We will admit patient to ICU for close observation. Will trend troponins--currently negative. Will get an MRI brain, echocardiogram and carotid Doppler. Telemetry to monitor for any significant arrhythmia. Orthostatic vital signs. Continue supportive care. --Acute encephalopathy. unclear etiology. MRI brain pending. UA and ammonia level pending. Continue supportive care. --ESRD. Nephrology consulted. Patient on TTHS schedule. Per sow farm technician dialysis will likely be done tomorrow . Further management per sow farm technician. --DM 2 with neuropathy.. BS monitoring with sliding scale insulin. Continue home medications for his neuropathy. --Hypertension. Stable. Continue home medications --HLD. Continue statin. --History of CAD, [place] and CVA. Continue aspirin and statin. --Liver cirrhosis. Continue supportive care. --Left eye blindness. Continue supportive care. --History of seizures. Seizure precautions. Continue home medications. --Suspected systolic or diastolic CHF. Echocardiogram pending. Daily weights and strict I&O. --Nicotine dependence. Patient will be counseled on tobacco cessation when fully alert. --DVT prophylaxis with heparin sub. Discharge Plan: Home Plan to discharge in: 48 Hours - Advance Directives Does patient have a Living Will: No Does patient have a Durable POA for Healthcare: No - Code Status/Comfort Care Code Status Assessed: Yes Code Status: Full Code
[2020-09-19] MEDS ORDERED: GLUCAGON 1 MG/VIAL IM PRN (15:02)
[2020-09-19] MEDS: INSULIN -REGULAR HUMAN 50 UNIT/0.5 ML ML SQ SCH ×2 (16:30→21:00)
--- NOTE | 2020-09-19 16:44 | RAD REPORT ---
EXAM DESCRIPTION: MRI - Brain Wo Cont - 09/19/2020 4:18 pm CLINICAL HISTORY: syncope, recent unresponsiveness with CPR performed COMPARISON: Brain Wo Cont dated 01/05/2019; Head Brain Wo Cont dated 09/19/2020 TECHNIQUE: Sagittal T1-weighted images were obtained along with axial PD, heavily T2-weighted and T2 -FLAIR images. Axial DWI and ADC mapping sequences were also obtained along with coronal heavily T2-w eighted images. FINDINGS: No intracranial hemorrhage is present. No acute cortical based infarction identified. Diff usion-weighted imaging shows a 10 x 3 mm area of hyperintense signal in the deep periventricular whit e matter left parietal lobe. This is isointense on ADC mapping with hyperintense T2/IR signal. No oth er areas of diffusion signal abnormality seen. T2 IR sequencing shows scattered hyperintense signal c hanges in the cerebral white matter. Focally more prominent signal is present in the medial aspect of the temporal occipital junction believed be old CVA. Brainstem chronic ischemic signal is present. There is no edema or shift of midline structures. No extra-axial fluid collections. Wagner-matter/white matter junction is preserved. Signal voids are seen as a normal finding in the major intracranial ve ssels. No globe or orbital content abnormality identified. No sella or supra sella abnormality. Mastoid air cells and paranasal sinuses are clear. IMPRESSION: No intracranial hemorrhage present. No cerebral edema or other acute intracranial findin g identified. Small focus of subacute infarction identifiable in the deep periventricular white matter left parieta l lobe (1-2 weeks old). Scattered chronic ischemic changes in both cerebral hemispheres with focal old infarction change in t he medial margin of the left parieto-occipital junction.
[2020-09-19 16:52] LABS: Protime INR 0.93
[2020-09-19] MEDS: HEPARIN 5000 UNIT/ML 1 ML VIAL SQ SCH (17:00)
[2020-09-19 17:06] LABS: Barbiturates NEGATIVE (NEGATIVE); Benzodiazepines NEGATIVE (NEGATIVE); Cocaine NEGATIVE (NEGATIVE); METHAMPHETAM NEGATIVE (NEGATIVE); Methadone NEGATIVE (NEGATIVE); Opiates NEGATIVE (NEGATIVE); Phencyclidine NEGATIVE (NEGATIVE); THC Cannibis NEGATIVE (NEGATIVE)
[2020-09-19 17:20] LABS: Arterial Blood Carboxyhemoglob 1.8 % (0-1.5); Blood Gas Oxyhemoglobin 93.7 % (94-97); Blood O2 Saturation 96.4 % (92-98.5)
--- NOTE | 2020-09-19 17:31 | RAD REPORT ---
EXAM DESCRIPTION: - CP - 09/19/2020 5:12 pm CLINICAL HISTORY: Syncope COMPARISON: Soft Tissue Neck W/O Cont dated 01/05/2019 TECHNIQUE: Real-time sonographic evaluation of bilateral carotid and vertebral systems was performed . Wagner scale and Doppler interrogation were performed with waveform tracing bilaterally. FINDINGS: Exam was technically limited. Patient was moving and talking throughout the examination. P atient deep breathing also limited examination. Normal high resistance waveforms are noted in both external carotid arteries. The common carotid tho finesse and internal carotid arteries show normal low resistance waveforms. No significant plaque formation is seen. Peak systolic and end diastolic velocity values on the right side and the ICA/CCA ratio are in the non-hemodynamically significant range. Left internal carotid v elocity is elevated believed to be the affects of exam limitations and vascular tortuosity. No visual evidence of significant disease. Antegrade flow seen in both vertebral arteries. Velocity values and ratios were recorded and are retained in the patient's imaging records. IMPRESSION: No significant atherosclerotic changes noted. No evidence of a hemodynamically significant stenosis.
[2020-09-19] MEDS ORDERED: LORazepam 2 MG/ML VIAL ONE (17:58)
[2020-09-19] MEDS ORDERED: IPRATROPIUM BROM 0.5MG/2.5ML ONE (20:28)
[2020-09-19 21:18] VITALS: BMI 35.0
[2020-09-20] MEDS: HEPARIN 5000 UNIT/ML 1 ML VIAL SQ SCH ×3 (01:18→16:37)
[2020-09-20] MEDS ORDERED: HEPARIN 5000 UNIT/ML 1 ML VIAL ONE ×3 (01:33→16:55)
[2020-09-20] MEDS: IPRATROPIUM BROM 0.5MG/2.5ML NEB SCH ×4 (01:40→19:50)
[2020-09-20] MEDS ORDERED: IPRATROPIUM BROM 0.5MG/2.5ML ONE ×4 (01:59→20:15)
[2020-09-20 05:01] LABS: Absolute Lymphocytes (CBC) 1.6 K/uL (0.7-4.9); Basophils % 1.1 % (0-1.3); Hematocrit 33.2 % (39.6-49.0); Lymphocytes % 23.6 % (15.3-44.8); MPV 11.1 fL (7.6-11.3); RBC Red Blood Cell Count 3.42 M/uL (4.33-5.43)
[2020-09-20 05:26] LABS: Blood Gas Oxyhemoglobin 84.2 % (94-97); Blood O2 Saturation 87.2 % (92-98.5)
[2020-09-20 05:40] LABS: Magnesium 2.5 mg/dL (1.8-2.4); Potassium 5.2 mmol/L (3.5-5.1)
[2020-09-20] MEDS: LORazepam 2 MG/ML VIAL IV PRN ×2 (06:45→22:40)
[2020-09-20 06:55] LABS: Thyroid Stimulating Hormone 0.822 uIU/mL (0.360-3.740)
[2020-09-20] MEDS ORDERED: LORazepam 2 MG/ML VIAL ONE ×2 (07:03→19:37)
[2020-09-20] MEDS: INSULIN -REGULAR HUMAN 50 UNIT/0.5 ML ML SQ SCH ×4 (07:30→20:38)
[2020-09-20] MEDS: CALCIUM ACETATE 667 MG TAB PO SCH ×3 (08:00→16:59)
[2020-09-20] MEDS: SEVELAMER CARBONATE 800 MG TABLET PO SCH ×3 (08:00→17:00)
--- NOTE | 2020-09-20 08:10 | ECHO ---
HEIGHT: 5 ft 7 in WEIGHT: 224 lb 0 oz DATE OF STUDY: 09/19/[address]: Kimberley Theodore 2-DIMENSIONAL: YES M.MODE: YES DOPPLER: YES COLOR FLOW: YES TDS: YES PORTABLE: NO DEFINITY: NO BUBBLE STUDY: NO DIAGNOSIS: SUSPECTED CARDIAC ARREST, SYNCOPE CARDIAC HISTORY: CATHERIZATION: NO SURGERY: NO PROSTHETIC VALVE: NO PACEMAKER: NO MEASUREMENTS (cm) DIASTOLIC (NORMALS) SYSTOLIC (NORMALS) IVSd 1.3 (0.6-1.2) LA Diam 3.8 (1.9-4.0) LVEF 68% LVIDd 4.7 (3.5-5.7) LVIDs 2.9 (2.0-3.5) %FS 38% LVPWd 1.4 (0.6-1.2) Ao Diam 2.9 (2.0-3.7) 2 DIMENSIONAL ASSESSMENT: RIGHT ATRIUM: NORMAL LEFT ATRIUM: NORMAL RIGHT VENTRICLE: NORMAL LEFT VENTRICLE: NORMAL TRICUSPID VALVE: NORMAL MITRAL VALVE: NORMAL PULMONIC VALVE: NORMAL AORTIC VALVE: NORMAL PERICARDIAL EFFUSION: NONE AORTIC ROOT: NORMAL LEFT VENTRICULAR WALL MOTION: NORMAL DOPPLER/COLOR FLOW: NORMAL COMMENTS: NORMAL 2D ECHOCARDIOGRAM WITH DOPPLER. NO WALL MOTION ABNORMALITY. NO EFFUSION. TECHNOLOGIST: Bharti FUNK
--- NOTE | 2020-09-20 08:43 | P.PN ---
Subjective Date of Service: 09/20/20 Primary Care Provider: Dr. Singh; Nephrology-Dr. Guerra Chief Complaint: Unresponsiveness Subjective: Other (Confused but cooperative.) Physical Examination - Vital Signs Temperature: 97.6 F Blood Pressure: 116/60 Pulse: 68 Respirations: 11 Pulse Ox (%): 100 - Studies Laboratory Data (last 24 hrs) 09/19/20 10:27: PT 10.8, INR 0.94 09/19/20 10:27: WBC 8.50, Hgb 10.8 L, Hct 32.1 L, Plt Count 152 09/19/20 10:27: Sodium 141, Potassium 4.6, BUN 55 H, Creatinine 7.42 H*, Glucose 151 H, Magnesium 2.4, Total Bilirubin 0.3, AST 30, ALT 38, Alkaline Phosphatase 157 H Assessment & Plan Discharge Plan: Home Plan to discharge in: Greater than 2 days Physician Review Additional Text: MRI: IMPRESSION: No intracranial hemorrhage present. No cerebral edema or other acute intracranial finding identified. Small focus of subacute infarction identifiable in the deep periventricular white matter left parietal lobe (1-2 weeks old). Scattered chronic ischemic changes in both cerebral hemispheres with focal old infarction change in the medial margin of the left parieto-occipital junction. Echo: MEASUREMENTS (cm) DIASTOLIC (NORMALS) SYSTOLIC (NORMALS) IVSd 1.3 (0.6-1.2) LA Diam 3.8 (1.9-4.0) LVEF 68% LVIDd 4.7 (3.5-5.7) LVIDs 2.9 (2.0-3.5) %FS 38% LVPWd 1.4 (0.6-1.2) Ao Diam 2.9 (2.0-3.7) DIMENSIONAL ASSESSMENT: RIGHT ATRIUM: NORMAL LEFT ATRIUM: NORMAL RIGHT VENTRICLE: NORMAL LEFT VENTRICLE: NORMAL TRICUSPID VALVE: NORMAL MITRAL VALVE: NORMAL PULMONIC VALVE: NORMAL AORTIC VALVE: NORMAL PERICARDIAL EFFUSION: NONE AORTIC ROOT: NORMAL LEFT VENTRICULAR WALL MOTION: NORMAL DOPPLER/COLOR FLOW: NORMAL COMMENTS: NORMAL 2D ECHOCARDIOGRAM WITH DOPPLER. NO WALL MOTION ABNORMALITY. NO EFFUSION. Carotid Doppler: FINDINGS: Exam was technically limited. Patient was moving and talking throughout the examination. Patient deep breathing also limited examination. Normal high resistance waveforms are noted in both external carotid arteries. The common carotid arteries and internal carotid arteries show normal low resistance waveforms. No significant plaque formation is seen. Peak systolic and end diastolic velocity values on the right side and the ICA/CCA ratio are in the non-hem odynamically significant range. Left internal carotid velocity is elevated believed to be the affects of exam limitations and vascular tortuosity. No visual evidence of significant disease. Antegrade flow seen in both vertebral arteries. Velocity values and ratios were recorded and are retained in the patient's imaging records. IMPRESSION: No significant atherosclerotic changes noted. No evidence of a hemodynamically significant stenosis. Physical Exam: GENERAL: Patient remains confused. Alert oriented x1. Patient does not appear in any respiratory distress. VITAL SIGNS: Reviewed HEENT: Neck supple. NECK: Supple. No carotid bruits. No lymphadenopathy or thyromegaly. LUNGS: Clear to auscultation. No crackles or wheezes are heard. HEART: Regular rate and rhythm, no appreciable gallops, rubs, murmurs or extra heart sounds ABDOMEN: Soft, nontender, and nondistended. Positive bowel sounds. No hepatosplenomegaly was noted. EXTREMITIES: No significant edema to the lower extremity. Patient moving all fours. NEUROLOGIC: Patient confused but oriented x1. Patient cooperative with commands. SKIN: Normal color, turgor and temperature. No ulcerations or rashes noted. Impression: Syncope with metabolic encephalopathy likely secondary to subacute infarct in the deep periventricular white matter left parietal lobe with focal old infarct in the medial margin of the left parietal occipital junction Mild acute respiratory failure with hypercapnia complicated with obstructive sleep apnea End stage renal disease on hemodialysis Diabetes mellitus type 2 Hypertension Hyperlipidemia Liver cirrhosis Seizure disorder CAD Plan: Syncope with metabolic encephalopathy likely secondary to subacute infarct in t he deep periventricular white matter left parietal lobe with focal old infarct in the medial margin of the left parietal occipital junction: MRI reviewed. Subacute infarct likely 1 to 2 weeks old to the left parietal area. 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 Currently on aspirin, Plavix, Lipitor, lisinopril, atenolol and DVT prophylaxisheparin. Echocardiogram unremarkable. Carotid Doppler unremarkable. Will have physical therapy and Occupational Therapy evaluate patient. We will also have speech evaluate patient. Nurse to do swallow evaluation at bedside. Patient still confused. Will provide medication for agitation. Neurology recommended to repeat CT head today. Await results. Patient will require medication for agitation. Patient will need dialysis. Some hypercapnia noted. Patient not able to keep BiPAP on. Patient in process to get CPAP at home. Nephrology consulted. Pulmonology consulted. Will discuss with neurology as well. Mild acute respiratory failure with hypercapnia complicated with obstructive sleep apnea: Patient in process to get CPAP at home. Some hypercapnia noted. Patient not willing to keep BiPAP on. Patient appears stable respiratory reeves. Will discuss with pulmonology. End stage renal disease on hemodialysis: Last dialysis was on Friday. Patient will need dialysis. Patient receives dialysis every Friday, and Friday. Will discuss with nephrology. Diabetes mellitus type 2: Continue sliding scale. Recent A1c 7.7. Hypertension: Home medication reviewed. Restart medicationatenolol and lisinopril. Hyperlipidemia: Continue medicationLipitor Liver cirrhosis: Overall stable. Ammonia level within normal range. Seizure disorder: Restart medicationKeppra 250 mg 1 pill twice daily. Will check Keppra level. CAD: Continue medicationisosorbide mononitrate. Echocardiogram unremarkable. Depression with anxiety: Continue Celexa. Will provide medication for agitation. GERD: Continue Protonix Code Status: Full Code DVT prophylaxis: Heparin Advanced Care Planning-30 minutes: Patient confused at this time. Not able to address. Will discuss with about plan of care. Time Spent Managing Pts Care (In Minutes): 55
[2020-09-20] MEDS: ASPIRIN 81 MG CHEWABLE TABLET PO SCH (09:00)
[2020-09-20] MEDS ORDERED: lisinopriL 10 MG TAB PO SCH (09:00)
[2020-09-20] MEDS ORDERED: ISOSORBIDE MONO SR 60 MG TAB PO SCH (09:00)
[2020-09-20] MEDS ORDERED: ISOSORBIDE MONO SR 30 MG TAB PO SCH (09:00)
--- NOTE | 2020-09-20 09:41 | P.CNS ---
Date of Consult: 09/20/20 Reason for Consult: ESRD Requesting Physician: Juancarlos Prince Primary Care Provider: Dr. Singh; Nephrology-Dr. Guerra Chief Complaint: Unresponsiveness History of Present Illness: Patient is a 55-year-old male with a past medical history significant for CAD, CHF, ESRD, DM 2, hypertension, [place], seizures who presents with complaint of unresponsiveness. Patient is currently lethargic and unable to provide any meaningful history. Per report from the family, patient was eating at [employer] when patient choked and became unresponsive. Spouse attempted to arouse patient but was unable to. EMS was called and they was conflicting reports regarding patient's pulse. EMS was not sure if patient had a pulse or not. But patient was noted to have agonal breathing. Chest compression was started for about 10-20 seconds and patient was noted to have a pulse. Patient became alert. No other signs and symptoms reported. Symptoms are aggravated or relieved by nothing. Patient was brought to the ER for medical evaluation. Allergies morphine Allergy (Verified 09/19/20 22:02) Hives/Rash Home medications list reviewed: Yes Home Medications: Atenolol [Tenormin] 50 mg PO BEDTIME 04/24/20 Atorvastatin Calcium [Lipitor] 40 mg PO BEDTIME 04/24/20 Citalopram Hydrobromide [Citalopram HBr] 20 mg PO DAILY 04/24/20 Gabapentin 900 mg PO BID 04/24/20 [facility]ulin Aspart [[facility]] [facility] 04/24/20 Insulin Glargine,Hum.rec.anlog [Toujeo Solostar] 85 units SQ DAILY 04/24/20 Levetiracetam [Keppra] 250 mg PO BID 04/24/20 Liraglutide [Victoza 2-Willy] 0.6 mg SQ M,W,F 04/24/20 Lisinopril [Zestril] 10 mg PO BID 04/24/20 Pantoprazole [Protonix Tab*] 40 mg PO BID 04/24/20 Sevelamer Carbonate 800 mg PO TIDWM 04/24/20 Isosorbide Mononitrate [Isosorbide Mononitrate ER] 30 mg PO BID 04/25/20 Clopidogrel Bisulfate [Plavix] 1 tab PO DAILY 08/04/20 Vit B Comp No.3/Folic/C/Biotin [Nephro-Steven Rx Tablet] 1 tab PO DAILY 08/04/20 Aspirin [Aspirin EC 81 MG] 81 mg PO DAILY 09/20/20 Calcium Acetate [Phoslo*] 2 tab PO TIDWM 09/20/20 L.acidoph,Paracasei, B.lactis [Probiotic] 1 cap PO DAILY 09/20/20 clonazePAM [Clonazepam] 0.5 mg PO BIDP PRN 09/20/20 - Past Medical/Surgical History Diabetic: Yes -: History CVA -: Liver cirrhosis with history hepatitis A -: CAD -: Diabetes mellitus type 2, insulin dependent -: CAD with prior [place] -: Diabetic neuropathy, retinopathy -: CHF -: Hyperlipidemia -: seizures -: Cardiac stents -: left acl repair -: Cholecystectomy Psychosocial/ Personal History: Patient lives at home and is . He has no children. - Family History Mother Medical History: Heart disease, Hypertension - Social History Smoking Status: Unknown if ever smoked Alcohol use: No CD- Drugs: No Caffeine use: No Place of Residence: Home Review of Systems General: Weakness, Malaise Respiratory: SOB with Excertion Neurological: Weakness, Confusion Physical Examination Temp Pulse Resp BP Pulse Ox 97.6 F 66 16 125/77 100 09/20/20 08:54 09/20/20 09:00 09/20/20 09:00 09/20/20 09:00 09/20/20 09:00 General: Confused HEENT: Atraumatic Neck: Supple Respiratory: Clear to auscultation bilaterally (Upper airway rhonchi) Cardiovascular: No edema, Regular rate/rhythm Gastrointestinal: Soft and benign, Non-distended Musculoskeletal: No clubbing, No contractures Integumentary: No rashes, No cyanosis Neurological: Normal speech Laboratory Data (last 24 hrs) 09/19/20 10:27: PT 10.8, INR 0.94 09/19/20 10:27: WBC 8.50, Hgb 10.8 L, Hct 32.1 L, Plt Count 152 09/19/20 10:27: Sodium 141, Potassium 4.6, BUN 55 H, Creatinine 7.42 H*, Glucose 151 H, Magnesium 2.4, Total Bilirubin 0.3, AST 30, ALT 38, Alkaline Phosphatase 157 H Imagings Data: EXAM DESCRIPTION: US - CP - 09/19/2020 5:12 pm CLINICAL HISTORY: Syncope COMPARISON: Soft Tissue Neck W/O Cont dated 01/05/2019 TECHNIQUE: Real-time sonographic evaluation of bilateral carotid and vertebral systems was performed. Wagner scale and Doppler interrogation were performed with waveform tracing bilaterally. FINDINGS: Exam was technically limited. Patient was moving and talking throughout the examination. Patient deep breathing also limited examination. Normal high resistance waveforms are noted in both external carotid arteries. The common carotid arteries and internal carotid arteries show normal low resistance waveforms. No significant plaque formation is seen. Peak systolic and end diastolic velocity values on the right side and the ICA/CCA ratio are in the non- hemodynamically significant range. Left internal carotid velocity is elevated believed to be the affects of exam limitations and vascular tortuosity. No visual evidence of significant disease. Antegrade flow seen in both vertebral arteries. Velocity values and ratios were recorded and are retained in the patient's imaging records IMPRESSION: No significant atherosclerotic changes noted. No evidence of a hemodynamically significant stenosis. EXAM DESCRIPTION: MRI - Brain Wo Cont - 09/19/2020 4:18 pm CLINICAL HISTORY: syncope, recent unresponsiveness with CPR performed COMPARISON: Brain Wo Cont dated 01/05/2019; Head Brain Wo Cont dated 09/19/2020 TECHNIQUE: Sagittal T1-weighted images were obtained along with axial PD, heavily T2-weighted and T2-FLAIR images. Axial DWI and ADC mapping sequences were also obtained along with coronal heavily T2-weighted images. FINDINGS: No intracranial hemorrhage is present. No acute cortical based infarction identified. Diffusion-weighted imaging shows a 10 x 3 mm area of hyperintense signal in the deep periventricular white matter left parietal lobe. This is isointense on ADC mapping with hyperintense T2/IR signal. No other areas of diffusion signal abnormality seen. T2 IR sequencing shows scattered hyperintense signal changes in the cerebral white matter. Focally more prominent signal is present in the medial aspect of the temporal occipital junction believed be old CVA. Brainstem chronic ischemic signal is present. There is no edema or shift of midline structures. No extra-axial fluid collections. Wagner-matter/white matter junction is preserved. Signal voids are seen as a normal finding in the major intracranial vessels. No globe or orbital content abnormality identified. No sella or supra sella abnormality. Mastoid air cells and paranasal sinuses are clear. IMPRESSION: No intracranial hemorrhage present. No cerebral edema or other acute intracranial finding identified. Small focus of subacute infarction identifiable in the deep periventricular white matter left parietal lobe (1-2 weeks old). Scattered chronic ischemic changes in both cerebral hemispheres with focal old infarction change in the medial margin of the left parieto-occipital junction. EXAM DESCRIPTION: Noah Single View09/19/2020 10:47 am CLINICAL HISTORY: Syncope/shortness of breath COMPARISON: 2019 FINDINGS: The lungs appear clear of acute infiltrate. The heart is normal size. 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 Conclusions/Impression: ESRD -Acute HD Hyperkalemia -Acute HD HTN with CKD/ CHF -Continue Atenolol as tolerated -Continue Lisinopril as tolerated Diastolic CHF, chronic -Low sodium diet -Continue Lisinopril Moderate malnutrition -Start Nepro once PO initiated Anemia in CKD -Give Retacrit ZACH/ Secondary HyperPTH -Continue Phoslo and Renvela once PO intake initiated Toxic metabolic encephalopathy -NPO -Neurology to evaluate AMS Thank you kindly for the consultation.
[2020-09-20] MEDS ORDERED: NA CHLORIDE 0.9% 1,000 ML IV PRN (09:45)
[2020-09-20] MEDS ORDERED: MANNITOL 25% 12.5 GM/50 ML VIAL IV PRN (09:45)
[2020-09-20] MEDS: THIAMINE 200 MG/2 ML INJ IVP SCH ×2 (09:55→20:37)
[2020-09-20] MEDS ORDERED: ALBUMIN HUMAN 25% 50 ML IV SCH (10:00)
[2020-09-20] MEDS ORDERED: THIAMINE 200 MG/2 ML INJ ONE ×2 (10:13→20:17)
[2020-09-20] MEDS: MULTIVITAMINS,THERAPEUT 1 TAB PO SCH (11:05)
[2020-09-20] MEDS: LACTOBACILLUS/ACIDOPHILUS TAB PO SCH (11:07)
[2020-09-20] MEDS: CITALOPRAM 10 MG TABLET PO SCH (11:07)
[2020-09-20] MEDS: levETIRAcetam 500 MG TAB PO SCH ×2 (11:11→20:36)
[2020-09-20] MEDS: CLOPIDOGREL 75 MG TABLET PO SCH (11:13)
[2020-09-20] MEDS: PANTOPRAZOLE 40MG TABLET PO SCH ×2 (11:13→16:37)
[2020-09-20] MEDS ORDERED: PANTOPRAZOLE 40MG TABLET PO ONE ×2 (11:29→16:55)
[2020-09-20] MEDS ORDERED: ASPIRIN EC 81 MG TAB PO ONE (11:29)
[2020-09-20] MEDS ORDERED: CLOPIDOGREL 75 MG TABLET ONE (11:29)
[2020-09-20] MEDS ORDERED: levETIRAcetam 500 MG TAB ONE ×2 (11:29→20:19)
--- NOTE | 2020-09-20 12:02 | EKG ---
Test Date: 2020-09-19 Test Time: 10:24:27 [place]: ELISE MEASUREMENT RESULTS: Intervals: Rate: 72 SC: 158 QRSD: 140 QT: 462 QTc: 505 Kyle: P: 47 SC: 158 QRS: 111 T: 10 INTERPRETIVE STATEMENTS: Sinus rhythm with occasional premature ventricular complexes Right bundle branch block Left posterior fascicular block Bifascicular block Abnormal ECG Compared to ECG 04/25/2020 14:21:38 Ventricular premature complex(es) now present Left posterior fascicular block now present Bifascicular block now present T-wave abnormality no longer present Possible ischemia no longer present Electronically Signed On 09-20-20 11:57:21 CDT by Zion Colon
[2020-09-20] MEDS: D50W 25 GM/50 ML SYRINGE IV PRN (16:50)
[2020-09-20] MEDS ORDERED: D50W 50 ML IV ONE (17:06)
[2020-09-20] MEDS ORDERED: atenoloL 50 MG TAB ONE (20:17)
[2020-09-20] MEDS ORDERED: lisinopriL 10 MG TAB ONE (20:18)
[2020-09-20] MEDS: ISOSORBIDE MONO SR 30 MG TAB PO SCH (20:35)
[2020-09-20] MEDS: ATORVASTATIN 40 MG TAB PO SCH (20:35)
[2020-09-20] MEDS: lisinopriL 10 MG TAB PO SCH (20:36)
[2020-09-20] MEDS: atenoloL 50 MG TAB PO SCH (20:36)
[2020-09-21] MEDS: HEPARIN 5000 UNIT/ML 1 ML VIAL SQ SCH ×3 (01:12→16:22)
[2020-09-21] MEDS ORDERED: HEPARIN 5000 UNIT/ML 1 ML VIAL ONE (01:29)
[2020-09-21] MEDS: IPRATROPIUM BROM 0.5MG/2.5ML NEB SCH ×4 (02:00→19:25)
[2020-09-21] MEDS ORDERED: IPRATROPIUM BROM 0.5MG/2.5ML ONE ×2 (02:22→08:03)
[2020-09-21 05:46] LABS: Absolute Lymphocytes (CBC) 1.4 K/uL (0.7-4.9); Hematocrit 30.1 % (39.6-49.0); Lymphocytes % 17.6 % (15.3-44.8); RBC Red Blood Cell Count 3.08 M/uL (4.33-5.43)
[2020-09-21 06:03] LABS: Magnesium 2.3 mg/dL (1.8-2.4); Phosphorus 5.1 mg/dL (2.5-4.9); Uric Acid 4.8 mg/dL (3.5-7.2)
[2020-09-21] MEDS: PANTOPRAZOLE 40MG TABLET PO SCH ×2 (07:30→16:12)
[2020-09-21] MEDS: INSULIN -REGULAR HUMAN 50 UNIT/0.5 ML ML SQ SCH ×3 (07:30→17:45)
[2020-09-21] MEDS: CALCIUM ACETATE 667 MG TAB PO SCH ×3 (08:00→16:12)
[2020-09-21] MEDS: SEVELAMER CARBONATE 800 MG TABLET PO SCH ×3 (08:00→16:12)
[2020-09-21] MEDS ORDERED: ALBUTEROL 2.5 MG/3 ML NEB SOL ONE (08:03)
[2020-09-21] MEDS: ASPIRIN 81 MG CHEWABLE TABLET PO SCH (09:00)
[2020-09-21] MEDS: CLOPIDOGREL 75 MG TABLET PO SCH (09:00)
[2020-09-21] MEDS: LACTOBACILLUS/ACIDOPHILUS TAB PO SCH (09:00)
[2020-09-21] MEDS: MULTIVITAMINS,THERAPEUT 1 TAB PO SCH (09:00)
[2020-09-21] MEDS: lisinopriL 10 MG TAB PO SCH ×2 (09:00→20:46)
[2020-09-21] MEDS: CITALOPRAM 10 MG TABLET PO SCH (09:00)
[2020-09-21] MEDS: ISOSORBIDE MONO SR 30 MG TAB PO SCH ×2 (09:00→20:45)
[2020-09-21] MEDS: levETIRAcetam 500 MG TAB PO SCH ×2 (09:00→20:45)
[2020-09-21] MEDS: THIAMINE 200 MG/2 ML INJ IVP SCH ×2 (10:17→20:46)
[2020-09-21] MEDS: D50W 25 GM/50 ML SYRINGE IV PRN (11:52)
[2020-09-21] MEDS: D5 0.45 NS 1,000 ML IV SCH (12:17)
[2020-09-21] MEDS ORDERED: D50W 25 GM/50 ML VIAL IV PRN (16:00)
--- NOTE | 2020-09-21 16:12 | P.PN ---
Date of Service: 09/21/20 Vital Signs Temp Pulse Resp BP Pulse Ox 100.4 F 68 20 134/67 100 09/21/20 12:00 09/21/20 12:00 09/21/20 12:00 09/21/20 12:00 09/21/20 12:00 Medications Acetaminophen (Acetaminophen 325 Mg Tablet) 650 mg PO Q6H PRN PRN Reason: TEMP > 100' F Albuterol Sulfate (Albuterol 2.5 Mg/3 Ml Neb Soraida) 2.5 mg NEB [id number] PRN PRN Reason: SHORTNESS OF BREATH Aspirin (Aspirin 81 Mg Chewable Tablet) 81 mg PO DAILY [facility] Last Admin: 09/21/20 09:00 Dose: Not Given Documented by: Atenolol (Atenolol 50 Mg Tab) 50 mg PO BEDTIME [facility] Last Admin: 09/20/20 20:36 Dose: 50 mg Documented by: Atorvastatin Calcium (Atorvastatin 40 Mg Tab) 40 mg PO BEDTIME [facility] Last Admin: 09/20/20 20:35 Dose: 40 mg Documented by: Calcium Acetate (Calcium Acetate 667 Mg Tab) 1,334 mg PO TIDWM [facility] Last Admin: 09/21/20 11:42 Dose: Not Given Documented by: Citalopram Hydrobromide (Citalopram 10 Mg Tablet) 20 mg PO DAILY [facility] Last Admin: 09/21/20 09:00 Dose: Not Given Documented by: Clopidogrel Bisulfate (Clopidogrel 75 Mg Tablet) 75 mg PO DAILY [facility] Last Admin: 09/21/20 09:00 Dose: Not Given Documented by: Dextrose (D50w 25 Gm/50 Ml Vial) 12.5 gm IV PRN PRN PRN Reason: HYPOGLYCEMIA Glucagon (Glucagon 1 Mg/Vial) 1 mg IM 1X PRN PRN Reason: HYPOGLYCEMIA Heparin Sodium (Porcine) (Heparin 5000 Unit/Ml 1 Ml Vial) 5,000 unit SQ Q8HR [facility] Last Admin: 09/21/20 10:17 Dose: 5,000 unit Documented by: Heparin Sodium (Porcine) (Heparin 1,000 Unit/Ml Vial) 6,000 unit IV EVERY HD PRN PRN Reason: AFTER EACH Last Admin: 09/20/20 14:12 Dose: 6,000 unit Documented by: Albumin Human (Albumin 25%) 50 mls @ 100 mls/hr IV EVERY HD [facility] Dextrose/Sodium Chloride (Dextrose 5% O.45% Saline) 1,000 mls @ 50 mls/hr IV .Q20H [facility] Last Admin: 09/21/20 12:17 Dose: 1,000 mls Documented by: Insulin Human Regular (Insulin -Regular Human 50 Unit/0.5 Ml Ml) 0 unit SQ Q6HR [facility]; Protocol Ipratropium [place] (Ipratropium Brom 0.5mg/2.5ml) 0.5 mg NEB [id number] [facility] Last Admin: 09/21/20 14:00 Dose: 0.5 mg Documented by: Isosorbide Mononitrate (Isosorbide [place] Sr 30 Mg Tab) 30 mg PO BID [facility] Last Admin: 09/21/20 09:00 Dose: Not Given Documented by: Lactobacillus Acidoph/Bulgar[place] (Lactobacillus/Acidophilus Tab) 1 tab PO DAILY [facility] Last Admin: 09/21/20 09:00 Dose: Not Given Documented by: Levetiracetam (Levetiracetam 500 Mg Tab) 250 mg PO BID [facility] Last Admin: 09/21/20 09:00 Dose: Not Given Documented by: Lisinopril (Lisinopril 10 Mg Tab) 10 mg PO BID [facility] Last Admin: 09/21/20 09:00 Dose: Not Given Documented by: Lorazepam (Lorazepam 2 Mg/Ml Vial) 1 mg IV Q6H PRN PRN Reason: AGITATION Last Admin: 09/20/20 22:40 Dose: 1 mg Documented by: Mannitol (Mannitol 25% 12.5 Gm/50 Ml Vial) 12.5 gm IV EVERY HD PRN PRN Reason: Titrate to SBP (MUST DEFINE) Ondansetron HCl (Ondansetron 4 Mg/2 Ml Vial) 4 mg IV Q6HP PRN PRN Reason: NAUSEA / VOMITING Pantoprazole Sodium (Pantoprazole 40mg Tablet) 40 mg PO BIDAC [facility]; Protocol Last Admin: 09/21/20 07:30 Dose: Not Given Documented by: Sevelamer Carbonate (Sevelamer Carbonate 800 Mg Tablet) 800 mg PO TIDWM [facility] Last Admin: 09/21/20 11:42 Dose: Not Given Documented by: Sodium Chloride (Flush Normal Saline 10 Ml) 10 ml IV BID [facility] Last Admin: 09/21/20 09:00 Dose: 10 ml Documented by: Thiamine HCl (Thiamine 200 Mg/2 Ml Inj) 200 mg IVP BID [facility] Last Admin: 09/21/20 10:17 Dose: 200 mg Documented by: Vitamin B Complex/Vit C/Folic Acid (Multivitamins,Therapeut 1 Tab) 1 tab PO DAILY [facility] Last Admin: 09/21/20 09:00 Dose: Not Given Documented by: Microbiology Results 09/19/20 10:27 Blood - Blood Aerobic Blood Culture - Preliminary No growth in 24 hours. 09/19/20 10:27 Blood - Blood Anaerobic Blood Culture - Preliminary 09/19/20 10:27 Blood - Blood Gram Stain - Final 09/19/20 10:17 Blood - Blood Aerobic Blood Culture - Preliminary No growth in 24 hours. 09/19/20 10:17 Blood - Blood Anaerobic Blood Culture - Preliminary No growth in 24 hours. Assessment/ Plan: Nephrology Limited IH/ ROS due to AMS. Resting comfortably on bipap Still NPO No acute events overnight Vitals, medications, blood work and imaging reviewed in the chart. General: Confused HEENT: Atraumatic Neck: Supple Respiratory: Clear to auscultation bilaterally Cardiovascular: Trace hip edema, Regular rate/rhythm Gastrointestinal: Soft and benign, Non-distended Musculoskeletal: No clubbing, No contractures Integumentary: No rashes, No cyanosis Neurological: No speech Laboratory Data (last 24 hrs) 09/19/20 10:27: PT 10.8, INR 0.94 09/19/20 10:27: WBC 8.50, Hgb 10.8 L, Hct 32.1 L, Plt Count 152 09/19/20 10:27: Sodium 141, Potassium 4.6, BUN 55 H, Creatinine 7.42 H*, Glucose 151 H, Magnesium 2.4, Total Bilirubin 0.3, AST 30, ALT 38, Alkaline Phosphatase 157 H Imagings Data: EXAM DESCRIPTION: - - 09/19/2020 5:12 pm CLINICAL HISTORY: Syncope COMPARISON: Soft Tissue Neck W/O Cont dated 01/05/2019 TECHNIQUE: Real-time sonographic evaluation of bilateral carotid and vertebral systems was performed. Wagner scale and Doppler interrogation were performed with waveform tracing bilaterally. FINDINGS: Exam was technically limited. Patient was moving and talking throughout the examination. Patient deep breathing also limited examination. Normal high resistance waveforms are noted in both external carotid arteries. The common carotid arteries and internal carotid arteries show normal low resistance waveforms. No significant plaque formation is seen. Peak systolic and end diastolic velocity values on the right side and the ICA/CCA ratio are in the non- hemodynamically significant range. Left internal carotid velocity is elevated believed to be the affects of exam limitations and vascular tortuosity. No visual evidence of significant disease. Antegrade flow seen in both vertebral arteries. Velocity values and ratios were recorded and are retained in the patient's imaging records IMPRESSION: No significant atherosclerotic changes noted. No evidence of a hemodynamically significant stenosis. EXAM DESCRIPTION: MRI - Brain Wo Cont - 09/19/2020 4:18 pm CLINICAL HISTORY: syncope, recent unresponsiveness with CPR performed COMPARISON: Brain Wo Cont dated 01/05/2019; Head Brain Wo Cont dated 09/19/2020 TECHNIQUE: Sagittal T1-weighted images were obtained along with axial PD, heavily T2-weighted and T2-FLAIR images. Axial DWI and ADC mapping sequences were also obtained along with coronal heavily T2-weighted images. FINDINGS: No intracranial hemorrhage is present. No acute cortical based infarction identified. Diffusion-weighted imaging shows a 10 x 3 mm area of hype rintense signal in the deep periventricular white matter left parietal lobe. This is isointense on ADC mapping with hyperintense T2/IR signal. No other areas of diffusion signal abnormality seen. T2 IR sequencing shows scattered hyperintense signal changes in the cerebral white matter. Focally more prominent signal is present in the medial aspect of the temporal occipital junction believed be old CVA. Brainstem chronic ischemic signal is present. There is no edema or shift of midline structures. No extra-axial fluid collections. Wagner-matter/white matter junction is preserved. Signal voids are seen as a normal finding in the major intracranial vessels. No globe or orbital content abnormality identified. No sella or supra sella abnormality. Mastoid air cells and paranasal sinuses are clear. IMPRESSION: No intracranial hemorrhage present. No cerebral edema or other acute intracranial finding identified. Small focus of subacute infarction identifiable in the deep periventricular white matter left parietal lobe (1-2 weeks old). Scattered chronic ischemic changes in both cerebral hemispheres with focal old infarction change in the medial margin of the left parieto-occipital junction. [facility]47 [facility] CLINICAL HISTORY: Syncope/shortness of breath COMPARISON: 2019 FINDINGS: The lungs appear clear of acute infiltrate. The heart is normal size. A central venous catheter has its tip at the junction of the superior vena cava and right atrium IMPRESSION: No acute abnormalities displayed Conclusions/Impression: ESRD -Acute HD again today Hyperkalemia -Acute HD today HTN with CKD/ CHF -Continue Atenolol as tolerated -Continue Lisinopril as tolerated Diastolic CHF, chronic -Low sodium diet -Continue Lisinopril Moderate malnutrition -Start Nepro once PO initiated Anemia in CKD -Give Retacrit PRN ZACH/ Secondary HyperPTH -Continue Phoslo and Renvela once PO intake initiated Toxic metabolic encephalopathy -NPO -Neurology following -Plan for speech evaluation
--- NOTE | 2020-09-21 17:06 | P.PN ---
Subjective Date of Service: 09/21/20 Primary Care Provider: Dr. Singh; Nephrology-Dr. Guerra Chief Complaint: Unresponsiveness Subjective: Improving Physical Examination - Vital Signs Temperature: 99.6 F Blood Pressure: 143/70 Pulse: 74 Respirations: 20 Pulse Ox (%): 100 - Studies Microbiology Data (last 24 hrs): 09/19/20 10:27 Blood - Blood Gram Stain - Final Assessment & Plan Discharge Plan: Home Plan to discharge in: Greater than 2 days Physician Review Additional Text: MRI: IMPRESSION: No intracranial hemorrhage present. No cerebral edema or other acute intracranial finding identified. Small focus of subacute infarction identifiable in the deep periventricular white matter left parietal lobe (1-2 weeks old). Scattered chronic ischemic changes in both cerebral hemispheres with focal old infarction change in the medial margin of the left parieto-occipital junction. Echo: MEASUREMENTS (cm) DIASTOLIC (NORMALS) SYSTOLIC (NORMALS) IVSd 1.3 (0.6-1.2) LA Diam 3.8 (1.9-4.0) LVEF 68% LVIDd 4.7 (3.5-5.7) LVIDs 2.9 (2.0-3.5) %FS 38% LVPWd 1.4 (0.6-1.2) Ao Diam 2.9 (2.0-3.7) DIMENSIONAL ASSESSMENT: RIGHT ATRIUM: NORMAL LEFT ATRIUM: NORMAL RIGHT VENTRICLE: NORMAL LEFT VENTRICLE: NORMAL TRICUSPID VALVE: NORMAL MITRAL VALVE: NORMAL PULMONIC VALVE: NORMAL AORTIC VALVE: NORMAL PERICARDIAL EFFUSION: NONE AORTIC ROOT: NORMAL LEFT VENTRICULAR WALL MOTION: NORMAL DOPPLER/COLOR FLOW: NORMAL COMMENTS: NORMAL 2D ECHOCARDIOGRAM WITH DOPPLER. NO WALL MOTION ABNORMALITY. NO EFFUSION. Carotid Doppler: FINDINGS: Exam was technically limited. Patient was moving and talking throughout the examination. Patient deep breathing also limited examination. Normal high resistance waveforms are noted in both external carotid arteries. The common carotid arteries and internal carotid arteries show normal low resistance waveforms. No significant plaque formation is seen. Peak systolic and end diastolic velocity values on the right side and the ICA/CCA ratio are in the non- hemodynamically significant range. Left internal carotid velocity is elevated believed to be the affects of exam limitations and vascular tortuosity. No visual evidence of significant disease. Antegrade flow seen in both vertebral arteries. Velocity values and ratios were recorded and are retained in the patient's imaging records. IMPRESSION: No significant atherosclerotic changes noted. No evidence of a hemodynamically significant stenosis. Physical Exam: GENERAL: Patient remains confused. Alert oriented x1. Patient does not appear in any respiratory distress. VITAL SIGNS: Reviewed HEENT: Neck supple. NECK: Supple. No carotid bruits. No lymphadenopathy or thyromegaly. LUNGS: Clear to auscultation. No crackles or wheezes are heard. HEART: Regular rate and rhythm, no appreciable gallops, rubs, murmurs or extra heart sounds ABDOMEN: Soft, nontender, and nondistended. Positive bowel sounds. No hepatosplenomegaly was noted. EXTREMITIES: No significant edema to the lower extremity. Patient moving all fours. NEUROLOGIC: Patient confused but oriented x1. Patient cooperative with commands. SKIN: Normal color, turgor and temperature. No ulcerations or rashes noted. Impression: Syncope with metabolic encephalopathy likely secondary to subacute infarct in the deep periventricular white matter left parietal lobe with focal old infarct in the medial margin of the left parietal occipital junction Mild acute respiratory failure with hypercapnia complicated with obstructive sleep apnea End stage renal disease on hemodialysis Diabetes mellitus type 2 with hypoglycemia Hypertension Hyperlipidemia Liver cirrhosis Seizure disorder CAD Plan: Syncope with metabolic encephalopathy likely secondary to subacute infarct in the deep periventricular white matter left parietal lobe with focal old infarct in the medial margin of the left parietal occipital junction: MRI reviewed. Subacute infarct likely 1 to 2 weeks old to the left parietal area. 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 Currently on aspirin, Plavix, Lipitor, lisinopril, atenolol and DVT prophylaxisheparin. Echocardiogram unremarkable. Carotid Doppler unremarkable. Patient more alert. Patient had some sedation and found to have hypoglycemia. Will start IV fluids. Monitor hemoglobin closely. Await physical therapy, Occupational Therapy and speech therapy to assess. Spoke with . Will check to see if therapies recommend inpatient rehab versus skilled. Patient was also on BiPAP earlier. Recommend CPAP at night. Will monitor closely. Mild acute respiratory failure with hypercapnia complicated with obstructive sleep apnea: Patient in process to get CPAP at home. Recommend CPAP at night. Will monitor closely. End stage renal disease on hemodialysis: Last dialysis was on Friday. Patient will need dialysis. Patient receives dialysis every Friday, and Friday. Will discuss with nephrology. Diabetes mellitus type 2 with hypoglycemia: We will start IV fluids. Monitor closely. Sliding scale in place. Await recommendations from speech therapy.. Recent A1c 7.7. Hypertension: Home medication reviewed. Restart medicationatenolol and lisinopril. Hyperlipidemia: Continue medicationLipitor Liver cirrhosis: Overall stable. Ammonia level within normal range. Seizure disorder: ContinueKeppra 250 mg 1 pill twice daily. Will check Keppra level. CAD: Continue medicationisosorbide mononitrate. Echocardiogram unremarkable. Depression with anxiety: Continue Celexa. Will provide medication for agitation. GERD: Continue Protonix Code Status: Full Code DVT prophylaxis: Heparin Advanced Care Planning-30 minutes: Await recommendations from physical therapy and Occupational Therapy. Spoke with about plan of care. hoping patient will be qualified for inpatient rehab. Time Spent Managing Pts Care (In Minutes): 55
--- NOTE | 2020-09-21 20:32 | CON ---
Reason For Consultation: Consultation called because of an episode of unresponsiveness with history of seizures. History Of Present Illness: Mr. Kwong is a 55-year-old right-handed patient with multiple m edical problems including end-stage renal disease on hemodialysis, congestive heart failure, coronary artery disease, diabetes mellitus type 2, hypertension, myocardial infarction, and seizures, who rep ortedly became unresponsive. He was with his family at [place] eating when he apparently beg an choking and became unresponsive. The patient was not immediately able to be resuscitated. [facility] were summoned. They noted agonal breathing, but do not determine if the patient had a pulse and after chest compressions about 15-20 seconds, there was a pulse noted and the patien t was brought to [facility], and was lethargic and drowsy. Head CT scan showed no acute isc hemic or hemorrhagic change; however, his brain MRI identified a small focus of subacute infarction i n the deep periventricular white matter in the left parietal lobe, estimated to be 1 to 2 weeks old. However, there is no reported clinical event that correlated with that. There was scattered chronic small vessel ischemic disease an and old stroke in the medial margin of the left parieto-occipital j unction. His echocardiogram showed ejection fraction of 68% with a normal study. His carotid artery ultrasound showed no significant arthrosclerotic findings. Laboratory studies showed a normal white blood cell count, chronically low hemoglobin and hematocrit, likely related to chronic kidney failur e. INR 0.93. Arterial blood gas, however, continues to actually be low, today is lower than yesterd ay in terms of his pH and actually 2 days ago, it was 7.26 and yesterday 7.23 with pCO2 elevated to 5 2.6 on the and yesterday 56.7, the PO2 is being low at 58.4. His chemistries showed as expected of a creatinine 1.06. The patient does get dialysis. His glucose down to 47, but then to a high of 93 after. Ammonia level was low at 10 and calcium normal. Uric acid level was normal. Liver funct ion studies otherwise show alkaline phosphatase 157, normal ALT and AST, direct and total bilirubin w ere normal. Toxicology screen was negative. COVID-19 test is negative. His chest x-ray showed no a cute abnormalities. Past Medical History: As indicated. In addition, diabetic neuropathy, retinopathy, congestive heart failure, dyslipidemia. Past Surgical History: Multiple cardiac stents, left ACL repair, cholecystectomy. Family History: Positive for heart disease and hypertension in mother. Social History: The patient smokes cigarettes daily. Denies alcohol or IV drug use. Review of Systems: Not reliable as the patient follows commands intermittently. Physical Examination: Vital Signs: Blood pressure 143/70, pulse 74, respiratory rate 16 to 18, temperature 99.6, T-max of 100.4, oxygen saturation 100%. General: Mr. Kwong is in bed, getting dialysis done. He is somewhat sleepy, but is arousable and do es follow simple commands. He does require repeated stimulation to stay awake. Did move both upper and lower extremities equally well, although sluggishly. Cranial nerves show apparent decrease in th e right nasolabial fold compared to the left side and in terms of movement perhaps thought more subtl e. Subtly, there is less movement on the right compared to the left upper and lower extremities. Th e patient today is on dialysis ambulated. Tone was normal in the upper and lower extremities. Assessment: Mr. Kwong is a 55-year-old patient with a likely subacute infarct in the left parietal l obe, potentially producing some right face, arm, and leg symptoms. He may have even had a seizure at the time of his episode of unresponsiveness. He is acidotic and likely requires more ventilation to improve the acidosis. The patient is also on the Renal Service for that. Plan: Continue Keppra 250 mg twice daily. Continue aggressive management of his renal function with dialysis. Continue Plavix 75 mg daily, aspirin 81 mg daily, Lipitor 40 mg at bedtime, and the patient may be evaluated by speech path ology to rule out risk of aspiration. LB/MODL Voice ID: [id number] Report ID: [id number]
[2020-09-21] MEDS: ATORVASTATIN 40 MG TAB PO SCH (20:45)
[2020-09-21] MEDS: atenoloL 50 MG TAB PO SCH (20:46)
[2020-09-22] MEDS: HEPARIN 5000 UNIT/ML 1 ML VIAL SQ SCH ×2 (01:06→08:20)
[2020-09-22] MEDS: IPRATROPIUM BROM 0.5MG/2.5ML NEB SCH ×3 (01:10→14:00)
[2020-09-22 04:55] LABS: Absolute Lymphocytes (CBC) 1.7 K/uL (0.7-4.9); Basophils % 0.6 % (0-1.3); Hematocrit 30.4 % (39.6-49.0); Lymphocytes % 17.3 % (15.3-44.8); MPV 11.7 fL (7.6-11.3); RBC Red Blood Cell Count 3.15 M/uL (4.33-5.43)
[2020-09-22] MEDS: INSULIN -REGULAR HUMAN 50 UNIT/0.5 ML ML SQ SCH ×3 (06:00→12:00)
[2020-09-22] MEDS: PANTOPRAZOLE 40MG TABLET PO SCH ×2 (07:24→16:02)
[2020-09-22] MEDS: CITALOPRAM 10 MG TABLET PO SCH (07:24)
[2020-09-22] MEDS: SEVELAMER CARBONATE 800 MG TABLET PO SCH ×3 (07:24→16:02)
[2020-09-22] MEDS: CALCIUM ACETATE 667 MG TAB PO SCH ×3 (07:24→16:02)
[2020-09-22] MEDS: ASPIRIN 81 MG CHEWABLE TABLET PO SCH (07:24)
[2020-09-22] MEDS: ISOSORBIDE MONO SR 30 MG TAB PO SCH (07:24)
[2020-09-22] MEDS: levETIRAcetam 500 MG TAB PO SCH (07:25)
[2020-09-22] MEDS: CLOPIDOGREL 75 MG TABLET PO SCH (07:25)
[2020-09-22] MEDS: lisinopriL 10 MG TAB PO SCH (07:25)
[2020-09-22] MEDS: MULTIVITAMINS,THERAPEUT 1 TAB PO SCH (07:25)
[2020-09-22] MEDS: THIAMINE 200 MG/2 ML INJ IVP SCH (07:25)
[2020-09-22] MEDS: LACTOBACILLUS/ACIDOPHILUS TAB PO SCH (07:25)
[2020-09-22] MEDS: D5 0.45 NS 1,000 ML IV SCH (08:21)
[2020-09-22] MEDS: LORazepam 2 MG/ML VIAL IV PRN (09:22)
[2020-09-22] MEDS ORDERED: HALOPERIDOL LACT 5 MG/ML INJ IV PRN (10:40)
[2020-09-22] MEDS ORDERED: D5 0.45 NS 1,000 ML IV SCH (10:45)
[2020-09-22] MEDS ORDERED: ARFORMOTEROL TARTRATE 15 MCG/2 ML VIAL.NEB NEB SCH (10:45)
--- NOTE | 2020-09-22 10:46 | P.CNS ---
Date of Consult: 09/22/20 Primary Care Provider: Dr. Singh; Nephrology-Dr. Guerra Chief Complaint: Unresponsiveness History of Present Illness: Patient is 55 years of age the triple medical problems including seizure was found to be unresponsive lethargic currently was eating became choked unresponsive EMS was called compression started he is currently burrows has stable very combative aggressive not eating and drinking have an element of anoxic encephalopathy Patient is currently unresponsive Allergies morphine Allergy (Verified 09/19/20 22:02) Hives/Rash Home Medications: Atenolol [Tenormin] 50 mg PO BEDTIME 04/24/20 Atorvastatin Calcium [Lipitor] 40 mg PO BEDTIME 04/24/20 Citalopram Hydrobromide [Citalopram HBr] 20 mg PO DAILY 04/24/20 Gabapentin 900 mg PO BID 04/24/20 Insulin Aspart [Novolog] 1 unit SQ SEECOM 04/24/20 Insulin Glargine,Hum.rec.anlog [Toujeo Solostar] 85 units SQ DAILY 04/24/20 Levetiracetam [Keppra] 250 mg PO BID 04/24/20 Liraglutide [Victoza 2-Willy] 0.6 mg SQ M,W,F 04/24/20 Lisinopril [Zestril] 10 mg PO BID 04/24/20 Pantoprazole [Protonix Tab*] 40 mg PO BID 04/24/20 Sevelamer Carbonate 800 mg PO TIDWM 04/24/20 Isosorbide Mononitrate [Isosorbide Mononitrate ER] 30 mg PO BID 04/25/20 Clopidogrel Bisulfate [Plavix] 1 tab PO DAILY 08/04/20 Vit B Comp No.3/Folic/C/Biotin [Nephro-Steven Rx Tablet] 1 tab PO DAILY 08/04/20 Aspirin [Aspirin EC 81 MG] 81 mg PO DAILY 09/20/20 Calcium Acetate [Phoslo*] 2 tab PO TIDWM 09/20/20 L.acidoph,Paracasei, B.lactis [Probiotic] 1 cap PO DAILY 09/20/20 clonazePAM [Clonazepam] 0.5 mg PO BIDP PRN 09/20/20 - Past Medical/Surgical History Diabetic: Yes -: History CVA -: Liver cirrhosis with history hepatitis A -: CAD -: Diabetes mellitus type 2, insulin dependent -: CAD with prior OK -: Diabetic neuropathy, retinopathy -: CHF -: Hyperlipidemia -: seizures -: Cardiac stents -: left acl repair -: Cholecystectomy Psychosocial/ Personal History: Patient lives at home and is . He has no children. - Family History Mother Medical History: Heart disease, Hypertension - Social History Smoking Status: Unknown if ever smoked Alcohol use: No CD- Drugs: No Caffeine use: No Place of Residence: Home Review of Systems is unable to be obtained Physical Examination Temp Pulse Resp BP Pulse Ox 97 F 66 18 122/58 L 95 09/22/20 08:00 09/22/20 08:00 09/22/20 08:00 09/22/20 08:00 09/22/20 08:00 General: Unresponsive Respiratory: Expiratory wheezes Cardiovascular: No edema, Regular rate/rhythm Gastrointestinal: Normal bowel sounds, Soft and benign - Problems (1) Altered mental status Current Visit: Yes Status: Acute Plan: Patient is 55 years of age had a choking episode altered mental status possible anoxic encephalopathy may have had a small stroke on the MRI chest x-rays clear patient also in acute renal failure creatinine is improving hypoxic hypercapnic mildly anemic patient has chronic renal failure this time will avoid any benzodiazepines use Haldol or geodon to control agitation patient is hypoxic hypercapnic may have obstructive sleep apnea do not tolerate a BiPAP the check arterial blood gases also wheezing continue with bronchodilators oxygenation satisfactory increase IV fluids Qualifiers: Altered mental status type: unspecified Qualified Code(s): R41.82 - Altered mental status, unspecified
[2020-09-22 11:31] VITALS: O2SAT 100
--- NOTE | 2020-09-22 13:00 | P.PN ---
Subjective Date of Service: 09/22/20 Primary Care Provider: Dr. Singh; Nephrology-Dr. Guerra Chief Complaint: Unresponsiveness Subjective: Improving, Doing well (Patient more responsive this morning.) Physical Examination - Vital Signs Temperature: 97.9 F Blood Pressure: 134/68 Pulse: 58 Respirations: 16 Pulse Ox (%): 98 - Studies Microbiology Data (last 24 hrs): 09/19/20 10:27 Blood - Blood Gram Stain - Final Assessment & Plan Discharge Plan: Other (Home with home health and physical therapy verses skilled placement.) Plan to discharge in: 48 Hours Physician Review Additional Text: MRI: IMPRESSION: No intracranial hemorrhage present. No cerebral edema or other acute intracranial finding identified. Small focus of subacute infarction identifiable in the deep periventricular white matter left parietal lobe (1-2 weeks old). Scattered chronic ischemic changes in both cerebral hemispheres with focal old infarction change in the medial margin of the left parieto-occipital junction. Echo: MEASUREMENTS (cm) DIASTOLIC (NORMALS) SYSTOLIC (NORMALS) IVSd 1.3 (0.6-1.2) LA Diam 3.8 (1.9-4.0) LVEF 68% LVIDd 4.7 (3.5-5.7) LVIDs 2.9 (2.0-3.5) %FS 38% LVPWd 1.4 (0.6-1.2) Ao Diam 2.9 (2.0-3.7) DIMENSIONAL ASSESSMENT: RIGHT ATRIUM: NORMAL LEFT ATRIUM: NORMAL RIGHT VENTRICLE: NORMAL LEFT VENTRICLE: NORMAL TRICUSPID VALVE: NORMAL MITRAL VALVE: NORMAL PULMONIC VALVE: NORMAL AORTIC VALVE: NORMAL PERICARDIAL EFFUSION: NONE AORTIC ROOT: NORMAL LEFT VENTRICULAR WALL MOTION: NORMAL DOPPLER/COLOR FLOW: NORMAL COMMENTS: NORMAL 2D ECHOCARDIOGRAM WITH DOPPLER. NO WALL MOTION ABNORMALITY. NO EFFUSION. Carotid Doppler: FINDINGS: Exam was technically limited. Patient was moving and talking throughout the examination. Patient deep breathing also limited examination. Normal high resistance waveforms are noted in both external carotid arteries. The common carotid arteries and internal carotid arteries show normal low resistance waveforms. No significant plaque formation is seen. Peak systolic and end diastolic velocity values on the right side and the ICA/CCA ratio are in the non- hemodynamically significant range. Left internal carotid velocity is elevated believed to be the affects of exam limitations and vascular tortuosity. No visual evidence of significant disease. Antegrade flow seen in both vertebral arteries. Velocity values and ratios were recorded and are retained in the patient's imaging records. IMPRESSION: No significant atherosclerotic changes noted. No evidence of a hemodynamically significant stenosis. Physical Exam: GENERAL: Patient alert an oriented x2. Patient more alert today. Less confus ed. VITAL SIGNS: Reviewed HEENT: Neck supple. NECK: Supple. No carotid bruits. No lymphadenopathy or thyromegaly. LUNGS: Clear to auscultation. No crackles or wheezes are heard. HEART: Regular rate and rhythm, no appreciable gallops, rubs, murmurs or extra heart sounds ABDOMEN: Soft, nontender, and nondistended. Positive bowel sounds. No hepatosplenomegaly was noted. EXTREMITIES: No significant edema to the lower extremity. Patient moving all fours. NEUROLOGIC: Patient less confuse. Able to cooperate with commands. SKIN: Normal color, turgor and temperature. No ulcerations or rashes noted. Impression: Syncope with metabolic encephalopathy likely secondary to subacute infarct in the deep periventricular white matter left parietal lobe with focal old infarct in the medial margin of the left parietal occipital junction Mild acute respiratory failure with hypercapnia complicated with obstructive sleep apnea End stage renal disease on hemodialysis Diabetes mellitus type 2 with hypoglycemia Hypertension Hyperlipidemia Liver cirrhosis Seizure disorder CAD Plan: Syncope with metabolic encephalopathy likely secondary to subacute infarct in the deep periventricular white matter left parietal lobe with focal old infarct in the medial margin of the left parietal occipital junction: MRI reviewed. Subacute infarct likely 1 to 2 weeks old to the left parietal area. 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 Currently on aspirin, Plavix, Lipitor, lisinopril, atenolol and DVT prophylaxisheparin. Echocardiogram unremarkable. Carotid Doppler unremarkable. Patient more alert today. Will have physical therapy, occupational therapy and speech evaluate patient. Spoke with physical therapy briefly. Physical therapy is not recommend inpatient rehab as the patient has had some deficits for quite some time. Physical therapy recommends skilled placement. Await recommendations on speech. Continu e IV fluids. Will discontinue IV fluids once able to take oral intake. Await further recommendations from pulmonology. Will discuss with nephrology. Will also discuss with about plan of care which may include skilled placement versus home health with physical therapy. Anticipate continued improvement over the next 48-72 hr. Mild acute respiratory failure with hypercapnia complicated with obstructive sleep apnea: Patient in process to get CPAP at home. Recommend CPAP at night. Will monitor closely. Will discuss with pulmonology. End stage renal disease on hemodialysis: Continue with dialysis every Friday, and Friday. Will discuss with nephrology. Diabetes mellitus type 2 with hypoglycemia: Patient was started on IV fluids due to NPO status. Await speech evaluation for recommendation. Monitor closely. Sliding scale in place. Await recommendations from speech therapy.. Recent A1c 7.7. Hypertension: Continue atenolol and lisinopril. Hyperlipidemia: Continue medicationLipitor Liver cirrhosis: Overall stable. Ammonia level within normal range. Seizure disorder: ContinueKeppra 250 mg 1 pill twice daily. Will obtain Keppra level. CAD: Continue medicationisosorbide mononitrate. Echocardiogram unremarkable. Depression with anxiety: Continue Celexa. Will provide medication for agitation. GERD: Continue Protonix Code Status: Full Code DVT prophylaxis: Heparin Advanced Care Planning-30 minutes: Physical therapy recommends skilled placement. Will discuss with about plan of care possibly skilled placement versus home with home health and physical therapy at discharge. Time Spent Managing Pts Care (In Minutes): 55
[2020-09-22 13:11] LABS: Arterial Blood Carboxyhemoglob 2.2 % (0-1.5); Blood O2 Saturation 93.3 % (92-98.5)
[2020-09-22 16:05] VITALS: BP 132/62; TEMP 97.6
--- NOTE | 2020-09-22 16:31 | P.DS ---
Admission Date: 09/20/20 Discharge Date: 09/22/20 Primary Care Provider: Dr. Singh; Nephrology-Dr. Guerra Disposition: HOSPICE-MEDICAL FACILITY Discharge Condition: SERIOUS Reason for Admission: Unresponsiveness Consultations: Nephrology-Dr. Guerra Pulmonary-Dr. Barraza Neurology-Dr. Chahal Procedures: COVID: Negative CT head: FINDINGS: An intracranial bleed is not seen . The ventricles are normal in caliber. No extra-axial fluid collection is noted. Low-density left occipital lobe probably an old infarction. Fluid within the sinuses/ mastoids is not seen. IMPRESSION: No acute intracranial abnormality is seen MRI Brain: FINDINGS: No intracranial hemorrhage is present. No acute cortical based infarction identified. Diffusion-weighted imaging shows a 10 x 3 mm area of hyperintense signal in the deep periventricular white matter left parietal lobe. This is isointense on ADC mapping with hyperintense T2/IR signal. No other areas of diffusion signal abnormality seen. T2 IR sequencing shows scattered hyperintense signal changes in the cerebral white matter. Focally more prominent signal is present in the medial aspect of the temporal occipital junction believed be old CVA. Brainstem chronic ischemic signal is present. There is no edema or shift of midline structures. No extra-axial fluid collections. Wagner-matter/white matter junction is preserved. Signal voids are seen as a normal finding in the major intracranial vessels. No globe or orbital content abnormality identified. No sella or supra sella abnormality. Mastoid air cells and paranasal sinuses are clear. IMPRESSION: No intracranial hemorrhage present. No cerebral edema or other acute intracranial finding identified. Small focus of subacute infarction identifiable in the deep periventricular white matter left parietal lobe (1-2 weeks old). Scattered chronic ischemic changes in both cerebral hemispheres with focal old infarction change in the medial margin of the left parieto-occipital junction. Carotid Doppler: FINDINGS: Exam was technically limited. Patient was moving and talking throughout the examination. Patient deep breathing also limited examination. Normal high resistance waveforms are noted in both external carotid arteries. Th e common carotid arteries and internal carotid arteries show normal low resistance waveforms. No significant plaque formation is seen. Peak systolic and end diastolic velocity values on the right side and the ICA/CCA ratio are in the non- hemodynamically significant range. Left internal carotid velocity is elevated believed to be the affects of exam limitations and vascular tortuosity. No visual evidence of significant disease. Antegrade flow seen in both vertebral arteries. Velocity values and ratios were recorded and are retained in the patient's imaging records. IMPRESSION: No significant atherosclerotic changes noted. No evidence of a hemodynamically significant stenosis. ECHO: MEASUREMENTS (cm) DIASTOLIC (NORMALS) SYSTOLIC (NORMALS) IVSd 1.3 (0.6-1.2) LA Diam 3.8 (1.9-4.0) LVEF 68% LVIDd 4.7 (3.5-5.7) LVIDs 2.9 (2.0-3.5) %FS 38% LVPWd 1.4 (0.6-1.2) Ao Diam 2.9 (2.0-3.7) 2 DIMENSIONAL ASSESSMENT: RIGHT ATRIUM: NORMAL LEFT ATRIUM: NORMAL RIGHT VENTRICLE: NORMAL LEFT VENTRICLE: NORMAL TRICUSPID VALVE: NORMAL MITRAL VALVE: NORMAL PULMONIC VALVE: NORMAL AORTIC VALVE: NORMAL PERICARDIAL EFFUSION: NONE AORTIC ROOT: NORMAL LEFT VENTRICULAR WALL MOTION: NORMAL DOPPLER/COLOR FLOW: NORMAL COMMENTS: NORMAL 2D ECHOCARDIOGRAM WITH DOPPLER. NO WALL MOTION ABNORMALITY. NO EFFUSION. CXR: COMPARISON: 2020 FINDINGS: The lungs appear clear of acute infiltrate. The heart is normal size. A central venous catheter has its tip at the junction of the superior vena cava and right atrium IMPRESSION: No acute abnormalities displayed Medical Problem List: Syncope with metabolic encephalopathy likely secondary to subacute infarct in the deep periventricular white matter left parietal lobe with focal old infarct in the medial margin of the left parietal occipital junction Mild acute respiratory failure with hypercapnia complicated with obstructive sleep apnea End stage renal disease on hemodialysis Diabetes mellitus type 2 with hypoglycemia Hypertension Hyperlipidemia Liver cirrhosis Seizure disorder CAD Brief History of Present Illness: 55-year-old male with past medical history of CHF, end-stage renal disease on hemodialysis, diabetes mellitus type 2, hypertension, seizure disorder and CAD. Patient presented with unresponsiveness. Patient currently lethargic. Patient was not able to provide a history. Most information came from the family. reported patient had choked. He became more unresponsive. He was difficult to arouse. EMS was called. Chest compression was started for about 10-20 seconds. A pulse was obtained. Patient became more alert. He was brought in to the ER for further evaluation. Patient remains with increase sedation. Patient admitted for further evaluation. Hospital Course: Patient presented with syncopal episode with metabolic encephalopathy likely secondary to subacute infarct in the deep periventricular white matter, left parietal lobe with focal old infarct in the medial margin of the left parietal occipital junction. This was further complicated with mild acute respiratory failure with hypercapnia. Patient with underlying obstructive sleep apnea. Patient with past medical history of end-stage renal disease on hemodialysis, diabetes mellitus type 2, hypertension, hyperlipidemia, liver cirrhosis, seizure disorder, CAD, depression with anxiety in GERD. Patient continue to have increased sedation. Patient required BiPAP. Nephrology, Neurology and pulmonology were consulted. His condition is not improved. Patient had episodes of hypoglycemia requiring IV fluids. Patient received dialysis during the course of his stay. His overall condition remained unchanged with slight improvement in his mentation. After speaking to the in detail patient had specific advanced directives and plan of care. had explained to me that the patient had been declining in health. After long discussion, the patient was made do not resuscitate. The wanted him to be with comfort measures. She understood that the patient condition would likely not change or worsen. wanted to pursue hospice with comfort measures only. This would include stopping dialysis. This was addressed in detail with nephrology, pulmonology and Neurology. All were in agreement with plan of care. Patient was evaluated and assessed by inpatient hospice. The patient will enter inpatient hospice to continue comfort measures. Vital Signs/Physical Exam: Temp Pulse Resp BP Pulse Ox 97.6 F 58 16 132/62 97 09/22/20 16:00 09/22/20 16:00 09/22/20 16:00 09/22/20 16:00 09/22/20 16:00 General: Alert, Other (Increase sedation) HEENT: Atraumatic Neck: Supple Respiratory: Other (Mild crackles to the bases) Cardiovascular: Normal pulses, Regular rate/rhythm Gastrointestinal: Normal bowel sounds, No masses, No rebound, No guarding Neurological: Normal strength at 5/5 x4 extr, Normal tone, Other (Increase sedation) Laboratory Data at Discharge: WBC 9.60 K/uL (4.3-10.9) D 09/22/20 03:57 Hgb 10.3 g/dL (13.6-17.9) L 09/22/20 03:57 Hct 30.4 % (39.6-49.0) L 09/22/20 03:57 Plt Count 145 K/uL (152-406) L 09/22/20 03:57 PT 10.7 SECONDS (9.5-12.5) 09/19/20 16:30 INR 0.93 09/19/20 16:30 Sodium 139 mmol/L (136-145) 09/22/20 03:57 Potassium 4.0 mmol/L (3.5-5.1) 09/22/20 03:57 BUN 25 mg/dL (7-18) H 09/22/20 03:57 Creatinine 4.99 mg/dL (0.55-1.3) H D 09/22/20 03:57 Glucose 104 mg/dL (74-106) 09/22/20 03:57 Uric Acid 4.8 mg/dL (3.5-7.2) D 09/21/20 05:28 Phosphorus 5.1 mg/dL (2.5-4.9) H 09/21/20 05:28 Magnesium 2.0 mg/dL (1.8-2.4) 09/22/20 03:57 Total Bilirubin 0.3 mg/dL (0.2-1.0) 09/19/20 10:27 AST 30 U/L (15-37) 09/19/20 10:27 ALT 38 U/L (12-78) 09/19/20 10:27 Alkaline Phosphatase 157 U/L (45-117) H 09/19/20 10:27 Troponin I < 0.02 ng/mL (0.0-0.045) 09/20/20 04:49 Triglycerides 216 mg/dL (<150) H 09/20/20 04:49 Cholesterol 141 mg/dL (<200) 09/20/20 04:49 HDL Cholesterol 35 mg/dL (40-60) L 09/20/20 04:49 Cholesterol/HDL Ratio 4.03 09/20/20 04:49 Home Medications: Atenolol [Tenormin] 50 mg PO BEDTIME 04/24/20 Atorvastatin Calcium [Lipitor] 40 mg PO BEDTIME 04/24/20 Citalopram Hydrobromide [Citalopram HBr] 20 mg PO DAILY 04/24/20 Gabapentin 900 mg PO BID 04/24/20 Insulin Aspart [Novolog] 1 unit SQ SEECOM 04/24/20 Insulin Glargine,Hum.rec.anlog [Toujeo Solostar] 85 units SQ DAILY 04/24/20 Levetiracetam [Keppra] 250 mg PO BID 04/24/20 Liraglutide [Victoza 2-Willy] 0.6 mg SQ M,W,F 04/24/20 Lisinopril [Zestril] 10 mg PO BID 04/24/20 Pantoprazole [Protonix Tab*] 40 mg PO BID 04/24/20 Sevelamer Carbonate 800 mg PO TIDWM 04/24/20 Isosorbide Mononitrate [Isosorbide Mononitrate ER] 30 mg PO BID 04/25/20 Clopidogrel Bisulfate [Plavix] 1 tab PO DAILY 08/04/20 Vit B Comp No.3/Folic/C/Biotin [Nephro-Steven Rx Tablet] 1 tab PO DAILY 08/04/20 Aspirin [Aspirin EC 81 MG] 81 mg PO DAILY 09/20/20 Calcium Acetate [Phoslo*] 2 tab PO TIDWM 09/20/20 L.acidoph,Paracasei, B.lactis [Probiotic] 1 cap PO DAILY 09/20/20 clonazePAM [Clonazepam] 0.5 mg PO BIDP PRN 09/20/20 Physician Discharge Instructions: Patient will Enter inpatient hospice with comfort measures Diet: Comfort fe Activity: Bedrest Followup: Karma Fontana [Primary Care Provider] - Time spent managing pt's care (in minutes): 55
--- NOTE | 2020-09-22 17:38 | P.PN ---
Date of Service: 09/22/20 Vital Signs Temp Pulse Resp BP Pulse Ox 97.6 F 58 16 132/62 97 09/22/20 16:00 09/22/20 16:00 09/22/20 16:00 09/22/20 16:00 09/22/20 16:00 Microbiology Results 09/19/20 10:27 Blood - Blood Aerobic Blood Culture - Preliminary No growth in 24 hours. 09/19/20 10:27 Blood - Blood Anaerobic Blood Culture - Preliminary 09/19/20 10:27 Blood - Blood Gram Stain - Final 09/19/20 10:17 Blood - Blood Aerobic Blood Culture - Preliminary No growth in 24 hours. 09/19/20 10:17 Blood - Blood Anaerobic Blood Culture - Preliminary No growth in 24 hours. Assessment/ Plan: Nephrology Resting comfortably in bed but unable to arouse. Combative earlier today. No acute events overnight. Vitals, medications, blood work and imaging reviewed in the chart. General: Somnolent HEENT: Atraumatic Neck: Supple Respiratory: Clear to auscultation bilaterally Cardiovascular: Trace hip edema, Regular rate/rhythm Gastrointestinal: Soft and benign, Non-distended Musculoskeletal: No clubbing, No contractures Integumentary: No rashes, No cyanosis Neurological: No speech Laboratory Data (last 24 hrs) 09/19/20 10:27: PT 10.8, INR 0.94 09/19/20 10:27: WBC 8.50, Hgb 10.8 L, Hct 32.1 L, Plt Count 152 09/19/20 10:27: Sodium 141, Potassium 4.6, BUN 55 H, Creatinine 7.42 H*, Glucose 151 H, Magnesium 2.4, Total Bilirubin 0.3, AST 30, ALT 38, Alkaline Phosphatase 157 H Imagings Data: EXAM DESCRIPTION: US - CP - 09/19/2020 5:12 pm CLINICAL HISTORY: Syncope COMPARISON: Soft Tissue Neck W/O Cont dated 01/05/2019 TECHNIQUE: Real-time sonographic evaluation of bilateral carotid and vertebral systems was performed. Wagner scale and Doppler interrogation were performed with waveform tracing bilaterally. FINDINGS: Exam was technically limited. Patient was moving and talking throughout the examination. Patient deep breathing also limited examination. Normal high resistance waveforms are noted in both external carotid arteries. The common carotid arteries and internal carotid arteries show normal low resistance waveforms. No significant plaque formation is seen. Peak systolic and end diastolic velocity values on the right side and the ICA/CCA ratio are in the non- hemodynamically significant range. Left internal carotid velocity is elevated believed to be the affects of exam limitations and vascular tortuosity. No visual evidence of significant disease. Antegrade flow seen in both vertebral arteries. Velocity values and ratios were recorded and are retained in the patient's imaging records IMPRESSION: No significant atherosclerotic changes noted. No evidence of a hemodynamically significant stenosis. EXAM DESCRIPTION: MRI - Brain Wo Cont - 09/19/2020 4:18 pm CLINICAL HISTORY: syncope, recent unresponsiveness with CPR performed COMPARISON: Brain Wo Cont dated 01/05/2019; Head Brain Wo Cont dated 09/19/2020 TECHNIQUE: Sagittal T1-weighted images were obtained along with axial PD, heavily T2-weighted and T2-FLAIR images. Axial DWI and ADC mapping sequences were also obtained along with coronal heavily T2-weighted images. FINDINGS: No intracranial hemorrhage is present. No acute cortical based infarction identified. Diffusion-weighted imaging shows a 10 x 3 mm area of hyperintense signal in the deep periventricular white matter left parietal lobe. This is isointense on ADC mapping with hyperintense T2/IR signal. No other areas of diffusion signal abnormality seen. T2 IR sequencing shows scattered hyperintense signal changes in the cerebral white matter. Focally more prominent signal is present in the medial aspect of the temporal occipital junction believed be old CVA. Brainstem chronic ischemic signal is present. There is no edema or shift of midline structures. No extra-axial fluid collections. Wagner-matter/white matter junction is preserved. Signal voids are seen as a normal finding in the major intracranial vessels. No globe or orbital content abnormality identified. No sella or supra sella abnormality. Mastoid air cells and paranasal sinuses are clear. IMPRESSION: No intracranial hemorrhage present. No cerebral edema or other acute intracranial finding identified. Small focus of subacute infarction identifiable in the deep periventricular white matter left parietal lobe (1-2 weeks old). Scattered chronic ischemic changes in both cerebral hemispheres with focal old infarction change in the medial margin of the left parieto-occipital junction. EXAM DESCRIPTION: [facility] Single View09/19/2020 10:47 am CLINICAL HISTORY: Syncope/shortness of breath COMPARISON: 2019 FINDINGS: The lungs appear clear of acute infiltrate. The heart is normal size. A central venous catheter has its tip at the junction of the superior vena cava and right atrium IMPRESSION: No acute abnormalities displayed Conclusions/Impression: ESRD -HD TIW Hyperkalemia -Low potassium diet HTN with CKD/ CHF -Hold antihypertensives Diastolic CHF, chronic -Low sodium diet Moderate malnutrition -NPO due to dysphagia Anemia in CKD -Give Retacrit PRN ZACH/ Secondary HyperPTH -NPO Toxic metabolic encephalopathy -NPO -Neurology following Case reviewed with Dr. Prince and his at length. The and her family have elected to place the patient on hospice due to his poor mental status in the setting of a recent stroke.
[2020-09-23] MEDS ORDERED: ENOXAPARIN 30 MG/0.3 ML SQ SCH (09:00)
[2020-09-23 19:44] LABS: HBsAG Nonreactive (Nonreactive)
== END 2020-09-22 17:13 | disposition hospice, inpatient (51) | DRG 64 ==
LOC: ER 10:10 → ERHOLD 13:31 → OBSVTOIN 09-20 09:36 → 4TH 09-21 08:45
PROVIDERS: ADMIT Family Medicine; ATTEND Family Medicine
PROC: 5A09457 Assistance with Respiratory Ventilation, 24-96 Consecutive Hours, Continuous Positive Airway Pressure (ICD-10-PCS; principal; 2020-09-20)
PROC: 5A1D70Z Performance of Urinary Filtration, Intermittent, Less than 6 Hours Per Day (ICD-10-PCS; 2020-09-20)
DX: I63.9 Cerebral infarction, unspecified (principal); N18.6 End stage renal disease; J96.02 Acute respiratory failure with hypercapnia; G92 Toxic encephalopathy; I13.2 Hypertensive heart and chronic kidney disease with heart failure and with stage 5 chronic kidney disease, or end stage renal disease; I50.32 Chronic diastolic (congestive) heart failure; E44.0 Moderate protein-calorie malnutrition; N25.81 Secondary hyperparathyroidism of renal origin; E87.2 Acidosis; G93.1 Anoxic brain damage, not elsewhere classified; N17.9 Acute kidney failure, unspecified; I25.10 Atherosclerotic heart disease of native coronary artery without angina pectoris; F17.200 Nicotine dependence, unspecified, uncomplicated; K74.60 Unspecified cirrhosis of liver; E11.40 Type 2 diabetes mellitus with diabetic neuropathy, unspecified; F41.8 Other specified anxiety disorders; K21.9 Gastro-esophageal reflux disease without esophagitis; G40.909 Epilepsy, unspecified, not intractable, without status epilepticus; H54.62 Unqualified visual loss, left eye, normal vision right eye; E87.5 Hyperkalemia; E66.9 Obesity, unspecified; E11.649 Type 2 diabetes mellitus with hypoglycemia without coma; N25.0 Renal osteodystrophy; D63.1 Anemia in chronic kidney disease; E78.5 Hyperlipidemia, unspecified; G47.33 Obstructive sleep apnea (adult) (pediatric); I25.2 Old myocardial infarction; Z79.4 Long term (current) use of insulin; Z79.899 Other long term (current) drug therapy; Z86.73 Personal history of transient ischemic attack (TIA), and cerebral infarction without residual deficits; Z88.5 Allergy status to narcotic agent; Z99.2 Dependence on renal dialysis; Z79.02 Long term (current) use of antithrombotics/antiplatelets; Z79.82 Long term (current) use of aspirin; Z90.49 Acquired absence of other specified parts of digestive tract; Z68.35 Body mass index [BMI] 35.0-35.9, adult; Z66 Do not resuscitate; Z20.822 Contact with and (suspected) exposure to COVID-19
CPT/HCPCS: 36415; 70450; 70551; 71045; 80048; 80061; 80076; 80307; 82140; 82805; 82947; 83735; 83880; 84100; 84443; 84484; 84550; 85025; 85610; 86317; 87040; 87205; 87340; 90935; 92610; 93005; 93306; 93880; 94640; 94660; 94760; 96374; 99285; J1630; J1644; J3411; J7799; P9047; U0003

== ENCOUNTER 2020-09-22 17:30 | Inpatient (IN) | payer MEDICARE, OTHER ==
[2020-09-22 17:33] VITALS: BMI 35.0
--- OUTSIDE RECORDS SUMMARY | 2020-09-22 17:35 | XMS REPORT | Continuity of Care Document ---
:1965 Author Organization [facility] t Address [address] [place] [place] [address] Care Team Providers Name Role Phone Attar Primary Care Physician Elieser BOSS T Attending Clinician Aniceto Palomino MD Attending Clinician CHANDANA Attending Clinician Unavailable NOBLE RODRIGUES Attending Clinician Unavailable CHANDANA Admitting Clinician Unavailable NOBLE RODRIGUES Admitting Clinician Unavailable Payers Payer Name Policy Type Policy Effective Date Expiration Date Sour ce Number [facility] [id number] 2019 [place] CHOICE 00:00:00 Pent[facility] [facility] EXCHANGE MARKETPLACExxxxxx [id number] esentExchange Problems Condition Condition Condition Status Onset Resolution Last Treating Co mments Source Name Details Category Date Date Treatment Clinician Date Diabetic Diabetic Disease Active [place] peripheral peripheral 2 Me thodi neuropathy neuropathy 00:00: st 00 Chronic Chronic Disease Active [place] kidney kidney 2-19 [facility] disease, disease, 00:00: st stage III stage III 00 (moderate) (moderate) Diarrhea, Diarrhea, Disease Active Ferdinand ston unspecifie unspecifie 06-16 Me thodi d d 00:00: st 00 Edema of Edema of Disease Active [place] left orbit left orbit 06-16 Me thodi 00:00: st 00 Hyperglyce Hyperglyce Disease Active H [facility] cristóbal 215 Methodi 00:00: st 00 Subdural Subdural Disease [facility] hemat[facility] hematoma 01-08 - due to due to 00:00: Medical concussion concussion 00 Ce nter , with , with loss of loss of consciousn consciousn ess, ess, subsequent subsequent encounter encounter Unstable Unstable Disease [facility] angina angina 01-08 - 00:00: Medical 00 [place] Hyperglyce Hyperglyce Disease Active [facility] cristóbal due to cristóbal due to 01-08 Tabby kes - type 2 type 2 00:00: Medical diabetes diabetes 00 Center mellitus mellitus Hypertensi Hypertensi Disease Active [facility] on on 01-08 Lu - 00:00: Medical 00 [place] CKD CKD Disease Active [facility] ([facility]ronic (chronic 01-08 [facility] kidney kidney 00:00: Medical disease) disease) 00 Center Acute Acute Disease Active 2017-04 [place] renal renal 1-23 [facility] failure failure 00:00: st 00 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-14 Meth susi diabetes diabetes 00:00: st mellitus mellitus 00 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 0-13 Methodi 00:00: st 00 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 [place] 0-13 Methodi 00:00: st 00 Occlusion Occlusion [...] disease disease 00:00: st involving involving 00 [place] coronary coronary artery of artery of assinibo[place] and sioux assiniboine and sioux heart with heart with angina angina pectoris pectoris Cirrhosis Cirrhosis Disease Active Ferdinand ston 12-01 Methodi 00:00: st 00 Hypertrigl Hypertrigl Disease Active H [facility] yceridemia yceridemia 12-01 Me thodi 00:00: st 00 Depression Depression Disease Active [place] 12-01 Methodi 00:00: st 00 Allergies, Adverse Reactions, Alerts Allergy Allergy Status Severity Reaction(s) Onset Inactive Treating Comm ents Source Name Type Date Date Clinician Ketorola Propensi Active Hallucinatio [facility] ty to ns 2-15 Methodi adverse [...] s to drug Codeine Propensi Active Hives [place] ty to 8-06 [facility] adverse 00:00: st reaction 00 s to drug Hydrocod Propensi Active Hives, [place] one-Acet ty to Itching 2-28 Methodi aminophe adverse 00:00: st n reaction 00 s to drug Family History Family Member Diagnosis Comments Start Date Stop Date Source Natural father No Known Problem [facility] Natural father Diabetes [facility] thodist Natural mother Heart disease [facility] Natural mother Hypertension [facility] Natural mother Diabetes [place] [facility] thodist Natural mother Hypertension [place] Pentecostalism Social History Social Habit Start Date Stop Date Quantity Comments Source History SDNM [facility] - Alcohol Std Drinks Medica [facility] History SDOH [facility] - Alcohol Binge Medical [facility] ter History of tobacco Cigarette Smoker [place] use Pentecostalism Cigarettes smoked 2019-07-06 2019-07-06 [place] current (pack per 00:00:00 00:00:[address] day) - Reported Tobacco use and 2019-07-06 2019-07-06 Never used [place] exposure 00:00:00 00:00:00 Pentecostalism Alcohol intake 2019-07-06 2019-07-06 Current [place] 00:00:00 00:00:00 non-drinker of Pentecostalism alcohol (finding) History SDOH 2019-01-06 2019-01-[address] [facility] - Alcohol Frequency 00:00:00 00:00:00 [facility] Tobacco Comment 2019-01-06 2019-01-06 smokes [address] [facility] - 00:00:00 00:00:00 day, started Medical [facility] er again 3 years ago Sex Assigned At [birth year] [place] 00:00:00 00:00:00 Pentecostalism Smoking Status Start Date Stop Date Source [...] total) M edical tablet 00 by mouth [place] daily. aspirin 81 Yes 81mg QD Take [address] MG chewable 9-16 by mouth Luke s - tablet 17:13: daily. [address] citalopram Yes 20mg QD Take [address] (CELEXA) 20 9-16 by mouth Luke s - MG tablet 17:13: daily. Medica [address] gabapentin Yes 300mg QD Take [address] (NEURONTIN) 9-16 mg by [facility] - 300 MG 17:13: mouth Medical capsule 05 daily. [place] clopidogrel Yes 75mg QD Take [address] (PLAVIX) 75 9-16 by mouth Luke s - mg tablet 17:13: daily. Medica l 05 [place] simvastatin Yes 80mg QD Take [address] (ZOCOR) 80 9-16 by mouth [facility] - MG tablet 17:13: daily. Medica l 05 [place] spironolact Yes 25mg QD Take [address] one 9-16 by mouth [facility] - (ALDACTONE) 17:13: daily. Medi warren 25 MG 05 [place] tablet levETIRAcet Yes 500mg QD Take [address] am (KEPPRA) 9-16 mg by [facility] - 500 MG 17:13: mouth Medical tablet 05 daily. [place] insulin Yes 80U Inject 80 [facility] 70/30, 9-16 Units [facility] - insulin 17:13: subcutaneo Medi warren NPH-insulin 05 usly 2 [place] regular, (two) (HUMULIN times 70/30) 100 daily unit/mL before (70-30) meals. injection travoprost Yes 1[drp] QD Place [address] (TRAVATAN 9-16 drop into [facility] - Z) 0.004 % 17:13: both eyes Me dical Drop 05 nightly. [place] ophthalmic drops furosemide Yes 20mg QD Take 1 [facility] (LASIX) 20 9-16 tablet (20 Doris es - MG tablet 00:00: mg total) Med ical 00 by mouth [place] daily. ranolazine Yes 500mg Q.5D Take 1 [...] Source Systolic blood 2019-12-28 22:43:00 122 mm[Hg] Luis lynne Pentecostalism pressure Diastolic blood 2019-12-28 22:43:00 73 mm[Hg] Anthony Johnson pressure Heart rate 2019-12-28 22:43:00 74 /min [...] (Season Ended)] Future Scheduled 2020-11-26 INFLUENZA VACCINE [place] [facility] Test 00:00:00 [code = INFLUENZA VACCINE] Future Scheduled 2020-06-30 DIABETES: RETINAL EYE [place] [facility] Test 00:00:00 EXAM [code = DIABETES: RETINAL EYE EXAM] Future Scheduled 2020-04-[address] [facility] - Test 00:00:00 (12+) [code = Medical Center DEPRESSION SCREENING (12+)] Future Scheduled 2019-04-[address] Tabby kes - Test 00:00:00 measurement Medical Center (procedure) [code = 91012299] Future Scheduled 2017-07-30 SHINGLES VACCINES ([address] [facility] - Test 00:00:00 of 2) [code = SHINGLES Medic al Center VACCINES (1 of 2)] Future Scheduled 2017-07-30 COLONOSCOPY SCREENING [place] [facility] Test 00:00:00 [code = COLONOSCOPY SCREENING] Future Scheduled 2017-07-30 SHINGLES VACCINES (#1) [place] [facility] Test 00:00:00 [code = SHINGLES VACCINES (#1)] Future Scheduled 2002-07-[address] [facility] - Test 00:00:00 (procedure) [code = Medical Center 13403801] Future Scheduled 1986-07-30 DTAP/TDAP/TD VACCINES CH I [...] Scheduled 1979 COVID-19 VACCINE (1) Ferdinand ston [facility]alism Test 00:00:00 [code = COVID-19 VACCINE (1)] Future Scheduled 1977-07-[address] EYE EXAM [facility] - Test 00:00:00 [code = DIABETIC EYE Medical Center EXAM] Future Scheduled 1977-07-[address] Doris es - Test 00:00:00 examination Medical Center (regime/therapy) [code = 453885287] Future Scheduled 1977-07-30 Urine screening for [facility] - Test 00:00:00 protein (procedure) Medical Center [code = 781800066] Future Scheduled 1977-07-30 DIABETIC FOOT EXAM [place] [facility] Test 00:00:00 [code = DIABETIC FOOT EXAM] Future Scheduled 1973-07-[address] [facility] - Test 00:00:00 0-64 YRS (1 of 1 - Medical C enter PPSV23) [code = PNEUMOCOCCAL VACCINE 0-64 YRS (1 of 1 - PPSV23)] Future Scheduled [address] [facility] Doris es - Test 00:00:00 malignant neoplasm of Medica l Center colon (procedure) [code = 824568884] Encounters Start End Encounter Admission Attending Care Care Encounter Source Date/Time Date/Time Type Type Clinicians Facility Department ID 2020-09-13 2020-09-13 Office CHUCKY Mon [id number] 10:12:04 10:42:04 Visit Lynsey Wang [id number] Chuck [id number] Muna [id number] nal 085 [facility] [address] 2019-12-28 2019-12-28 Emergency TU, YEN-TE [facility] [id number] [place] 00:00:00 00:00:[address] 2019-06-12 2019-07-16 Inpatient [facility] [id number] [place] 00:00:00 00:00:00 [place] [address] Results Test Description Test Time Test Comments Results Result Comments Source ECG 12 lead 2019-12-28 23:33:31 Test Item Value Reference Range Interpretation Comme nts Ventricular rate (test code = 253) 81 Atrial rate (test code = 255) 81 IN interval (test code = 266) 134 QRSD [...] is now seen- [facility] Wo [id number] 21:48:29Hm Interface, Radiology Results Incoming - 12/28/2019 [...] may represent some subcutaneous bruising for cellulitis. [facility]-UI15AKPSElwjjye [facility]rast 2019-12-28 21:34:22Hm Interface, Radiology Results 12/28/2019 9:37 PM CDT EXAM: CT HEAD [...] for acute intracranial abnormality.[id number] Chest 1 [id number] 20:56:20Hm Interface, Radiology Results Incoming - 12/28/2019 8:59 PM CDT EXAMINATION: XR CHEST 1 PORTABLECLINICAL HISTORY: sobCOMPARISON: 06/12/2019.IMPRESSION:Right central venous catheter terminates over the right atrium.Low lung volumes. Vascular crowding and/or congestion. No focal consolidation.No pleural effusion or pneumothorax. The cardiomediastinal silhouette is normal.No acute osseous abnormalities.[facility]-[id number] Preliminary Interpretation - Not an [id number] 20:54:49 Test Item Value Reference Range Interpretation Comments BRENT (test code = BRENT) Kelvin Palomino MD 12/30/2019 2:41 [facility] ED Preliminary Interpretation - Not an OrderPerformed by: Kelvin Palomino MDAuthorized by: Kelvin Palomino MD ECG reviewed by ED Physician in the absence of a senior principal process engineer: yes Interpretation: Interpretation: abnormal Rate: ECG rate: 81 ECG rate assessment: normal Rhythm: Rhythm: sinus rhythm Conduction: Conduction: abnormal Abnormal conduction: complete RBBB Lab Interpretation Abnormal (test code = 67507-7) [facility]SE [id number] 12:50:00 Test Item Value Reference Range Interpretation Comments POC-GLUCOSE METER 119 mg/dL 70-110 H TESTED AT [facility] 67 (BEAKER) (test code = [place] 1538) [address] BASIC METABOLIC [id number] 06:16:00 Test Item Value Reference Range Interpretation [...] PATIEN TS. CBC W/PLT COUNT & AUTO [id number] 05:42:00 Test Item Value Reference Range Interpretation [...] PERCENT (BEAKER) (test code = 2801) POCT-GLUCOSE [id number] 20:34:00 Test Item Value Reference Range Interpretation Comments POC-GLUCOSE METER 205 mg/dL 70-110 H TESTED AT [facility] 6720 ([facility]) (test code = [facility] 1538) [address] CT, CHEST, WITHOUT [id number] 18:24:00FINAL REPORT TECHNIQUE: CT scan of the [...] MDReport Verified Date/Time: 01/10/2019 18:24:57 Reading Location: [address] Body Reading Room POCT-GLUCOSE [id number] 17:31:00 Test Item Value Reference Range Interpretation Comments POC-GLUCOSE METER 183 mg/dL 70-110 H TESTED AT [place] [address] ([facility]) (test code = [place] [facility] 1538) [address] CT, BRAIN, WITHOUT [id number] 14:47:00FINAL REPORT CT, BRAIN, WITHOUT CONTRAST INDICATION: [...] Signed: Manny Lr Verified Date/Time: 01/10/2019 14:47:25 -[id number] 11:36:00 Test Item Value Reference Range Interpretation [...] within 95-100% range.RAD, CHEST, 1 VIEW, NON [id number] 08:17:00Reason for exam:->chest painShould this be performed [...] Schwab Verified Date/Time: 01/10/2019 08:17:19 Reading Location: [facility] C013X [facility] Consult Reading Room TROPONIN [id number] 07:02:00 Test Item Value Reference Range Interpretation [...] H (test code = 700) BASIC METABOLIC [id number] 06:51:00 Test Item Value Reference Range Interpretation [...] PATIEN TS. CBC W/PLT COUNT & AUTO [id number] 06:27:00 Test Item Value Reference Range Interpretation [...] PERCENT (BEAKER) (test code = 2801) TROPONIN [id number] 23:52:00 Test Item Value Reference Range Interpretation [...] acidosis, acute neurological disease, and persistent tachyarrhythmia.POCT-GLUCOSE [id number] 22:03:00 Test Item Value Reference Range Interpretation Comments POC-GLUCOSE METER 315 mg/dL 70-110 H TESTED AT [place] [address] ([facility]) (test code = [facility] 1538) [address] POCT-GLUCOSE [id number] 20:02:00 Test Item Value Reference Range Interpretation Comments POC-GLUCOSE METER 250 mg/dL 70-110 H TESTED AT [place] [address] ([facility]) (test code = [place] [address]878) [address] TROPONIN [id number] 19:05:00 Test Item Value Reference Range Interpretation Comments TROPONIN I ([facility]) (test code = 0.04 ng/mL 0.00-0.03 H [...] acidosis, acute neurological disease, and persistent tachyarrhythmia.POCT-GLUCOSE [id number] 17:40:00 Test Item Value Reference Range Interpretation Comments POC-GLUCOSE METER 246 mg/dL 70-110 H TESTED AT [place] [address] ([facility]) (test code = [facility] 1538) [address] POCT-GLUCOSE [id number] 08:11:00 Test Item Value Reference Range Interpretation Comments POC-GLUCOSE METER 243 mg/dL 70-110 H TESTED AT [place] [address] ([facility]) (test code = [facility] 1538) [address] BASIC METABOLIC [id number] 05:04:00 Test Item Value Reference Range Interpretation Comments SODIUM ([facility]) 138 meq/L 136-145 (test code = 381) [...] S NOT APPLICABLE FOR DIALYSIS PATIEN TS. [id number] 04:56:00 Test Item Value Reference Range Interpretation Comments PARTIAL THROMBOPLASTIN TIME 35.0 seconds 22.5-36.0 (BEAKER) (test code = 760) CBC W/PLT COUNT & AUTO [id number] 04:48:00 Test Item Value Reference Range Interpretation [...] PERCENT (BEAKER) (test code = 2801) POCT-GLUCOSE [id number] 22:08:00 Test Item Value Reference Range Interpretation Comments POC-GLUCOSE METER 364 mg/dL 70-110 H Notified R Christy MD/TESTED (BEAKER) (test code = AT [address] 1538) [facility] 7[address] 0 POCT-GLUCOSE [id number] 17:05:00 Test Item Value Reference Range Interpretation Comments POC-GLUCOSE METER 389 mg/dL 70-110 H Notified R Christy MD/TESTED (BEAKER) (test code = AT [address] 1538) [facility] [address] 0 BASIC METABOLIC [id number] 16:28:00 Test Item Value Reference Range Interpretation Comments SODIUM (BEAKER) 136 meq/L 136-145 (test code = 381) POTASSIUM (BEAKER) 4.7 meq/L 3.5-5.1 (test code = 379) CHLORIDE (BEAKER) 107 meq/L 98-107 (test code = 382) CO2 (BEAKER) (test 23 meq/L code = 355) BLOOD UREA NITROGEN 35 mg/dL 7-21 H (MICHELLAKER) (test code = 354) CREATININE (MICHELLAKER) 2.22 mg/dL 0.57-1.25 H (test code = 358) GLUCOSE RANDOM 358 mg/dL 70-105 H (CHASITY) (test code = 652) CALCIUM (MICHELLAKER) 8.7 mg/dL 8.4-10.2 (test code = 697) EGFR (CHASITY) (test 31 mL/min/1.73 ESTIMA ESTEE GFR IS code = 1092) sq m NOT ACCURATE CREATININE CLEARANCE IN PREDICTING GLOMERULAR FILTRATION RATE . ESTIMATED GFR I S NOT APPLICABLE FOR DIALYSIS PATIEN TS. [id number] 16:26:00 Test Item Value Reference Range Interpretation [...] INR is2.5-3.5 for patients wiht mechanical heart valves.[id number] 16:26:00 Test Item Value Reference Range Interpretation Comments PARTIAL THROMBOPLASTIN TIME 32.0 seconds 22.5-36.0 (CHASITY) (test code = 760) POCT-GLUCOSE [id number] 12:06:00 Test Item Value Reference Range Interpretation Comments POC-GLUCOSE METER 321 mg/dL 70-110 H Notified Rohith Lynne MD/TESTED (CHASITY) (test code = AT [facility] 67 [place] [address]) [facility] 7[address] 0 POCT-GLUCOSE [id number] 08:29:00 Test Item Value Reference Range Interpretation Comments POC-GLUCOSE METER 263 mg/dL 70-110 H TESTED AT [place] [address] (BEAKER) (test code = [place] 1538) [address] [id number] 04:54:00 Test Item Value Reference Range Interpretation Comments PARTIAL THROMBOPLASTIN TIME 31.0 seconds 22.5-36.0 (BEAKER) (test code = 760) CBC W/PLT COUNT & AUTO [id number] 04:43:00 Test Item Value Reference Range Interpretation [...] EOSINOPHILS ABSOLUTE COUNT 0.20 K/ L 0.04-0.54 ([facility]) (test code = 416) BASOPHILS ABSOLUTE COUNT ([facility]) 0.03 K/ L 0.01-0.08 (test code = 417) IMMATURE GRANULOCYTES-RELATIVE 1 % 0-1 PERCENT ([facility]) (test code = 2801) POCT-GLUCOSE [id number] 22:11:00 Test Item Value Reference Range Interpretation Comments POC-GLUCOSE METER 319 mg/dL 70-110 H Notified R Christy BOSS/TESTED ([facility]) (test code = AT [address] [address]38) [facility] 7[address] 0 [id number] 20:11:00 Test Item Value Reference Range Interpretation Comments PARTIAL THROMBOPLASTIN TIME 33.3 seconds 22.5-36.0 ([facility]) (test code = 760) POCT-GLUCOSE [id number] 18:49:00 Test Item Value Reference Range Interpretation Comments POC-GLUCOSE METER 309 mg/dL 70-110 H TESTED AT [place] [address] ([facility]) (test code = [place] [facility] 1538) [address] POCT-GLUCOSE [id number] 14:48:00 Test Item Value Reference Range Interpretation Comments POC-GLUCOSE METER 161 mg/dL 70-110 H TESTED AT [place] [address] ([facility]) (test code = [place] [facility] 1538) [address] POCT-GLUCOSE [id number] 14:46:00 Test Item Value Reference Range Interpretation Comments POC-GLUCOSE METER 159 mg/dL 70-110 H TESTED AT [place] [address] ([facility]) (test code = [place] [facility] 1538) [address] TROPONIN [id number] 13:58:00 Test Item Value Reference Range Interpretation Comments TROPONIN I ([facility]) (test code = 397) < ng/mL 0.00-0.03 [...] failure, acidosis, acute neurological disease, and persistent tachyarrhythmia.[id number] 12:25:00 Test Item Value Reference Range Interpretation Comments PARTIAL THROMBOPLASTIN TIME 30.3 seconds 22.5-36.0 ([facility]) (test code = 760) POCT-GLUCOSE [id number] 12:18:00 Test Item Value Reference Range Interpretation Comments POC-GLUCOSE METER 168 mg/dL 70-110 H TESTED AT [place] [address] ([facility]) (test code = [place] [facility] 1538) [address] POCT-GLUCOSE [id number] 11:06:00 Test Item Value Reference Range Interpretation Comments POC-GLUCOSE METER 180 mg/dL 70-110 H TESTED AT [place] [address] ([facility]) (test code = [facility] Rohith [facility] 1538) [address] POCT-GLUCOSE [id number] 10:21:00 Test Item Value Reference Range Interpretation Comments POC-GLUCOSE METER 195 mg/dL 70-110 H TESTED AT [place] [address] ([facility]) (test code = [facility] Rohith [facility] 1538) [address] POCT-GLUCOSE [id number] 10:21:00 Test Item Value Reference Range Interpretation Comments POC-GLUCOSE METER 180 mg/dL 70-110 H TESTED AT [place] [address] ([facility]) (test code = [facility] Rohith [facility] 1538) [address] POCT-GLUCOSE [id number] 08:06:00 Test Item Value Reference Range Interpretation Comments POC-GLUCOSE METER 218 mg/dL 70-110 H TESTED AT [place] [address] ([facility]) (test code = [facility] 1538) [address] TROPONIN [id number] 07:00:00 Test Item Value Reference Range Interpretation Comments TROPONIN I ([facility]) (test code = 0.01 ng/mL 0.00-0.03 397) [...] afterwardsOnce on admission and Daily AM afterwardsPOCT-GLUCOSE [id number] 06:58:00 Test Item Value Reference Range Interpretation Comments POC-GLUCOSE METER 248 mg/dL 70-110 H TESTED AT [facility] 6720 (BEAKER) (test code = [place] 1538) [address] [id number] 06:54:00 Test Item Value Reference Range Interpretation Comments PHOSPHORUS (BEAKER) (test code = 2.5 mg/dL 2.3-4.7 604) Once on admission and Daily AM afterwardsOnce on admission and Daily AM afterwardsOnce on admission and Daily AM [id number] 06:54:00 Test Item Value Reference Range Interpretation [...] Daily AM afterwardsCBC W/PLT COUNT & AUTO [id number] 06:42:00 Test Item Value Reference Range Interpretation [...] 417) IMMATURE GRANULOCYTES-RELATIVE 1 % 0-1 PERCENT ([facility]) (test code = 2801) [id number] 06:28:00 Test Item Value Reference Range Interpretation Comments PARTIAL THROMBOPLASTIN TIME 30.6 seconds 22.5-36.0 ([facility]) (test code = 760) POCT-GLUCOSE [id number] 06:01:00 Test Item Value Reference Range Interpretation Comments POC-GLUCOSE METER 266 mg/dL 70-110 H TESTED AT [place] [address] ([facility]) (test code = [place] [address]) [address] POCT-GLUCOSE [id number] 04:57:00 Test Item Value Reference Range Interpretation Comments POC-GLUCOSE METER 271 mg/dL 70-110 H TESTED AT [place] [address] ([facility]) (test code = [place] [address]16848) [address] POCT-GLUCOSE [id number] 04:05:00 Test Item Value Reference Range Interpretation Comments POC-GLUCOSE METER 308 mg/dL 70-110 H Notified Rohith Lynne MD/TESTED ([facility]) (test code = AT [address] [address]38) [facility] 7703 0 POCT-GLUCOSE [id number] 02:57:00 Test Item Value Reference Range Interpretation Comments POC-GLUCOSE METER 343 mg/dL 70-110 H Notified Rohith Lynne MD/TESTED ([facility]) (test code = AT [place] [address]) [facility] 7703 0 RAD, CHEST, 1 VIEW, NON [id number] 02:27:00Reason for exam:->mediastinal wideningShould this be performed [...] and osseous structures are intact. Signed: Wilmer Klinessm health care Verified Date/Time: 01/07/2019 02:27:45 POCT-GLUCOSE [id number] 01:57:00 Test Item Value Reference Range Interpretation Comments POC-GLUCOSE METER 369 mg/dL 70-110 H TESTED AT [place] [address] ([facility]) (test code = [place] [facility] 1538) [address] POCT-GLUCOSE [id number] 01:06:00 Test Item Value Reference Range Interpretation Comments POC-GLUCOSE METER 395 mg/dL 70-110 H Notified R Christy BOSS/TESTED ([facility]) (test code = AT [address] [address]38) [facility] 7703 0 TROPONIN [id number] 00:36:00 Test Item Value Reference Range Interpretation Comments TROPONIN I ([facility]) (test code = 0.01 ng/mL 0.00-0.03 397) [...] Reference Range Interpretation Comments B-TYPE NATRIURETIC PEPTIDE ([facility]) 151 pg/mL 0-100 H (test code = 700) [id number] 00:19:00 Test Item Value Reference Range Interpretation Comments PARTIAL THROMBOPLASTIN TIME 28.2 seconds 22.5-36.0 ([facility]) (test code = 760) Prior to initiating heparinPOCT-GLUCOSE [id number] 00:16:00 Test Item Value Reference Range Interpretation Comments POC-GLUCOSE METER 413 mg/dL 70-110 HH TESTED AT [place] [address] ([facility] [place]) (test code = [place] [facility] 1538) [address] POCT-GLUCOSE [id number] 23:10:00 Test Item Value Reference Range Interpretation Comments POC-GLUCOSE METER 452 mg/dL 70-110 HH Notified Rohith Lynne MD/TESTED ([facility]) (test code = AT [facility] [address]) [facility] [address] POCT-GLUCOSE [id number] 22:06:00 Test Item Value Reference Range Interpretation Comments POC-GLUCOSE METER 383 mg/dL 70-110 H TESTED AT [facility] 6720 ([place]) (test code = [place] [facility] 1538) [address] CT, BRAIN, WITHOUT [id number] 21:38:00FINAL REPORT CT Head without contrast CLINICAL [...] examination at time of dictation. Signed: [facility] Verified Date/Time: 01/06/2019 21:38:52 BASI METABOLIC [id number] 21:12:00 Test Item Value Reference Range Interpretation [...] NOT APPLICABLE FOR DIALYSIS PATIEN TS. HEMOGLOBIN [id number] 20:17:00 Test Item Value Reference Range Interpretation Comments HEMOGLOBIN A1C (BEAKER) (test code = 11.9 % 4.3-6.1 H 368) TROPONIN [id number] 19:52:00 Test Item Value Reference Range Interpretation [...] acute neurological disease, and persistent tachyarrhythmia.HEPATIC FUNCTION [id number] 19:46:00 Test Item Value Reference Range Interpretation [...] (test code = 347) hemolyzed Specimen moderately [id number] 19:32:00 Test Item Value Reference Range Interpretation Comments PARTIAL THROMBOPLASTIN TIME 28.1 seconds 22.5-36.0 (BEAKER) (test code = 760) PROTHROMBIN [id number] 19:31:00 Test Item Value Reference Range Interpretation [...] mechanical heart valves.CBC W/PLT COUNT & AUTO [id number] 19:25:00 Test Item Value Reference Range Interpretation [...] PERCENT (BEAKER) (test code = 2801) POCT-GLUCOSE [id number] 17:51:00 Test Item Value Reference Range Interpretation Comments POC-GLUCOSE METER 342 mg/dL 70-110 H Notified R N /TESTED (BEAKER) (test code = AT [facility] [address]) [place] [id number]
[2020-09-22] MEDS ORDERED: LORazepam 2 MG/ML VIAL IV PRN (17:41)
[2020-09-22] MEDS ORDERED: HALOPERIDOL LACT 5 MG/ML INJ IV PRN (17:42)
[2020-09-22] MEDS ORDERED: ONDANSETRON 4 MG/2 ML VIAL IV PRN (17:42)
[2020-09-22] MEDS ORDERED: BISACODYL 10 MG RECTAL SUPP PR PRN (17:43)
[2020-09-22] MEDS ORDERED: ACETAMINOPHEN 650MG/RECT SUPP PR PRN (17:44)
[2020-09-22] MEDS ORDERED: HYDROMORPHONE HCL 2 MG/ML inj IV PRN (17:46)
[2020-09-22] MEDS ORDERED: LORazepam 2 MG/ML VIAL IV STA (17:48)
[2020-09-22] MEDS ORDERED: HALOPERIDOL LACT 5 MG/ML INJ IV STA (17:48)
[2020-09-22] MEDS ORDERED: SCOPOLAMINE HYDROBROMIDE PATCH TD SCH (19:00)
[2020-09-22] MEDS: HYDROMORPHONE HCL 2 MG/ML inj IV SCH (20:49)
[2020-09-22 21:15] VITALS: O2SAT 94
[2020-09-22 22:01] VITALS: BP 104/51; TEMP 97.7
[2020-09-22] MEDS: LORazepam 2 MG/ML VIAL IV SCH (22:15)
[2020-09-23] MEDS: HYDROMORPHONE HCL 2 MG/ML inj IV SCH (00:43)
[2020-09-23] MEDS: LORazepam 2 MG/ML VIAL IV SCH (01:55)
== END 2020-09-23 09:50 | disposition expired | DRG 951 ==
LOC: 4TH 17:30
PROVIDERS: ADMIT Internal Medicine Medical Oncology; ATTEND Internal Medicine Medical Oncology
DX: Z51.5 Encounter for palliative care (principal); G93.41 Metabolic encephalopathy; N18.6 End stage renal disease; I12.0 Hypertensive chronic kidney disease with stage 5 chronic kidney disease or end stage renal disease; E11.22 Type 2 diabetes mellitus with diabetic chronic kidney disease; G40.909 Epilepsy, unspecified, not intractable, without status epilepticus; I25.10 Atherosclerotic heart disease of native coronary artery without angina pectoris
CPT/HCPCS: 82947; J1170; J1630